=== PATIENT | female | born 1965 | race Caucasian/White ===

== ENCOUNTER 2025-01-30 23:20 | Inpatient (IN) | payer MEDICAID, SELFPAY ==
--- OUTSIDE RECORDS SUMMARY | 2024-12-01 09:22 | XMS_ITS | Encounter Summary ---
Author [place] [address] Care Team Providers Care Ledger Clerk Name Role Phone Chetna Cedeno MD Primary Care Provider [phone] Arlyn Schmidt MD Unavailable [phone] Tacho Echavarria MD Unavailable [phone] Matt Ulrich MD Unavailable [phone] Eze Brock Unavailable Cheryl Nair RN Unavailable [phone] Annette Walker NEGATIVE RETOUCHER Unavailable [phone] Batool Celis MD Unavailable [phone] Reason for Referral * Surgical (Routine) - Pending Review Specialty Diagnoses / Procedures Referred By Contact Referred To Contact Gastroenterology Diagnoses Nausea and vomiting, unspecified vomiting type Gastroesophageal reflux disease without esophagitis Procedures ESOPHAGOGASTRODUODENOSCOPY (EGD) NM ESOPHAGOGASTRODUODENOSCOPY TRANSORAL DIAGNOSTIC NM DILATION ESOPH UNGUIDED SOUND/BOUGIE 1/MULT PASS NM EGD INSERT GUIDE WIRE DILATOR PASSAGE ESOPHAGUS NM EGD BALLOON DILATION ESOPHAGUS <30 MM DIAM King Oliva MD [address] [place] [address] Phone: tel:[phone] fax:[phone] Referral ID Status Reason Start Date Expiration Date V isits Requested Visits Authorized [id number] Pending Review 09/14/2024 09/14/2025 1 1 Reason for Visit * Surgical (Routine) - Pending Review Specialty Diagnoses / Procedures Referred By Contact Referred To Contact Gastroenterology Diagnoses Nausea and vomiting, unspecified vomiting type Gastroesophageal reflux disease without esophagitis Procedures ESOPHAGOGASTRODUODENOSCOPY (EGD) NM ESOPHAGOGASTRODUODENOSCOPY TRANSORAL DIAGNOSTIC NM DILATION ESOPH UNGUIDED SOUND/BOUGIE 1/MULT PASS NM EGD INSERT GUIDE WIRE DILATOR PASSAGE ESOPHAGUS NM EGD BALLOON DILATION ESOPHAGUS <30 MM DIAM King Oliva MD [address] [place] [address] Phone: tel:[phone] fax:[phone] Referral ID Status Reason Start Date Expiration Date V isits Requested Visits Authorized [id number] Pending Review 09/14/2024 09/14/2025 1 1 Encounter Details Date Type Department Care Team (Late st Contact Info) Description 12/01/2024 9:22 AM EDT - 12/01/2024 11:59 PM EDT Hospital Encounter [facility] [address] [place] [address] King Oliva MD [address] [place] [address] Aliya Friedman MD [address] [place] [address] Shaylee Thurman CRNA [address] [place] [address] Nausea and vomiting, unspecified vomiting type; Gastroesophageal reflux disease without esophagitis Discharge Disposition: Home or Self Care Social History Tobacco Use Types Packs/Day Years Used Date Smoking Tobacco: Never Passive Smoke Exposure: Never Smokeless Tobacco: Never Alcohol Use Standard Drinks/Week Comments Never 0 (1 standard drink = 0.6 oz pur e alcohol) B1300 Health Literacy Answer Date Recor ded How often do you need to hav e someone help you when you read instructions, pamphlets, or other written material from your doctor or pharmacy? Never 11/07/2023 [facility] Utilities Answer Date Recorded In the past 12 months has th e electric, gas, oil, or water company threatened to shut off services in your home? No 07/07/2024 Social Connection and Isolation Panel [NHANES] A nswer Date Recorded In a typical week, how many times do you talk on the phone with family, friends, or neighbors? Once a week 11/07/19 How often do you get togethe r with friends or relatives? Once a week 11/07/2023 How often do you attend chur ch or caodaism services? 1 to 4 times per year 11/07/2023 Do you belong to any clubs o r organizations such as zoroastrianism groups, unions, fraternal or athletic groups, or school groups? No 11/07/2023 How often do you attend meet ings of the clubs or organizations you belong to? Never 11/07/2023 Are you , , di vorced, , never , or living with a partner? Never 11/07/2023 Overall Financial Resource Strain (CARDIA) Answe r Date Recorded How hard is it for you to pa y for the very basics like food, housing, medical care, and heating? Not very hard 07/07/2024 PHQ-2 Answer Date Recorded PHQ-2 Total Score 5 07/07/2024 [facility] - Occupational Stress Questionnaire Answer Date Recorded Do you feel stress - tense, restless, nervous, or anxious, or unable to sleep at night because your mind is troubled all the time - these days? Rather much 07/07/2024 Exercise Vital Sign Answer Date Recorde d On average, how many days pe r week do you engage in moderate to strenuous exercise (like a brisk walk)? 3 days 07/07/2024 On average, how many minutes do you engage in exercise at this level? 40 min 07/07/2024 Hunger Vital Sign Answer Date Recorded Within the past 12 months, y ou worried that your food would run out before you got the money to buy more. Never true 07/07/20 24 Within the past 12 months, t he food you bought just didn't last and you didn't have money to get more. Never true 07/07/2024 PRAPARE - Transportation Answer Date Re corded In the past 12 months, has l ack of transportation kept you from medical appointments or from getting medications? No 08/2023 In the past 12 months, has l ack of transportation kept you from meetings, work, or from getting things needed for daily living? No 11/07/2023 Housing Stability Vital Sign Answer Noah e Recorded In the last 12 months, was t here a time when you were not able to pay the mortgage or rent on time? Yes 11/07/2023 Number of Times Moved in the Last Year Not on fi le 11/07/2023 At any time in the past 12 m [facility], were you homeless or living in a [place] facility (including now)? No 11/07/2023 [facility] IP Transportation Answer D ate Recorded In the past 12 months, has l ack of reliable transportation kept you from medical appointments, meetings, work or from getting things needed for daily living? No 07/07/2024 Education Answer Date Recorded What is the highest level of school you have completed or the highest degree you have received? High school graduate 02/13/2019 Sexually Active Control Partners Comments Not Currently Comments No Sex and Gender Information Value Date Recorded Sex Assigned at Not on file Legal Sex Female 5:20 PM EDT Gender Identity Not on file Sexual Orientation Not on file Occupation Industry Job Start Date Job End Date Not on file Not on file Not on file Not on file documented as of this encounter Last Filed Vital Signs Vital Sign Reading Time Taken Comments Blood Pressure 120/91 12/01/2024 11:29 AM EDT Pulse 83 12/01/2024 11:29 AM EDT Temperature 36.7 C (98.1 F) 12/01/2024 11:29 AM EDT Respiratory Rate 16 12/01/2024 11:29 AM EDT Oxygen Saturation 98% 12/01/2024 11:29 AM EDT Inhaled Oxygen Concentration - - Weight 86.6 kg (191 lb) 12/01/2024 10:02 AM EDT Height 160 cm (5' 3 ) 12/01/2024 10:02 AM EDT Body Mass Index 33.83 12/01/2024 10:02 AM EDT documented in this encounter Functional Status * Is the person deaf or does he/she have serious difficulty hearing? Answer Date of Assessment Author No 12/06/2022 2:08 PM EDT Macarena Marion CCMA * Is the person blind or does he/she have serious difficulty seeing even when wearing glasses? Answer Date of Assessment Author No 12/06/2022 2:08 PM EDT Macarena Marion CCMA * Does this person have serious difficulty walking or climbing stairs? Answer Date of Assessment Author No 12/06/2022 2:08 PM EDT Macarena Marion CCMA * Does this person have difficulty dressing or bathing? Answer Date of Assessment Author No 12/06/2022 2:08 PM EDT Macarena Marion CCMA * Because of a physical, mental or emotional condition, does this person have difficulty doing errands alone such as visiting a doctor's office or shopping? Answer Date of Assessment Author No 12/06/2022 2:08 PM EDT Macarena Marion CCMA documented as of this encounter Mental Status * Because of a physical, mental or emotional condition, does this person have serious difficulty concentrating, remembering or making decisions? Answer Entry Date Author No 12/06/2022 2:08 PM EDT Macarena Marion CCMA documented in this encounter Discharge Instructions * Discharge Instructions* Alma Salmon RN - 12/01/2024 10:04 AM EDT [facility] Discharge Instructions - Following Endoscopy A responsible adult, 18 years or older must be in attendance until the next A.M. Rest quietly today. May resume usual diet. Do not drive or operate any machinery until the next A.M., or as instructed. No alcoholic beverages for 24 hours. Do not make any legal or important decisions for the next 24 hours. Call the physician???s office for a follow-up visit or questions/concerns. Patient discharged to the care of Adelaida bhatia. ADDITIONAL INSTRUCTIONS: Call Dr. Oliva at [phone] if the following occurs: EGD: Abdominal pains, cramps, swelling, chest pains, difficulty in swallowing, chills, coughing blood, severe sore throat, or body temp. over 101 degrees. Medications Reviewed No Changes Copy of Discharge Medication Instruction Sheet Given +++++++++++++++++++++++++++++++++++++ [facility] Discharge Instructions After Anesthesia We appreciate the opportunity to care for you today! Here are a few reminders as you head home. A responsible adult, 18 years or older, must be with you until tomorrow morning. Rest quietly today. You may resume your normal diet as tolerated or as directed by your surgeon. Do not drive or operate any heavy machinery until tomorrow morning or as instructed. Do not make any legal or important decisions for the next 24 hours. Do not drink alcoholic beverages or take sleeping pills for 24 hours unless otherwise directed. If you have any questions or concerns regarding your anesthesia experience, please call our office at . Get Well Soon! 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 56 Tablet 1 12/03/2024 3:46 PM EDT 5 albuterol (PROVENTIL HFA;VENTOLIN HFA) 90 mcg/actuation Inhl HFA Aerosol InhalerIndication s:Mild intermittent asthma, unspecified whether complicated Inhale 2 Puffs into the lungs every 6 hours as needed for Wheezing. 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 90 Tablet 3 10/08/2024 1:18 PM EDT 5 ARIPiprazole (ABILIFY) 5 mg Oral TabletIndications :Severe episode of recurrent major depressive disorder, without psychotic features (HCC),KAYODE (generalized anxiety disorder) Take 1 Tablet by mouth daily. 30 Tablet 1 5 BOTOX 200 unit Inj Recon Soln 4 dicyclomine (BENTYL) 10 mg Oral CapsuleIndication s:Abdominal cramps Take 1 Capsule by mouth 3 times daily. for abdominal cramps 30 Capsule 4 exemestane (AROMASIN) 25 mg Oral Tablet Take 25 mg by mouth daily. 5 fluticasone furoate-vilantero L (BREO ELLIPTA) 200-25 mcg/dose Inhl Disk with DeviceIndications :Mild intermittent asthma, unspecified whether complicated Inhale 1 Puff into the lungs daily. 1 Each 6 4 fluticasone propionate (FLONASE) 50 mcg/actuation Nasl [place], Suspension 1 [place] by Nasal route daily. 1 Each 11 4 Inhalational Spacing Device (AEROCHAMBER MV) Misc Spacer 1 Each by Misc.(Non-Drug; Combo Route) route as needed. 1 Device 0 LORazepam (ATIVAN) 0.5 mg Oral TabletIndications :Anxiety about treatment Take 1 Tablet by mouth 2 times daily as needed for Anxiety (or Insomnia). 30 Tablet 4 MAGIC MOUTHWASH (LIDO/DIPHEN/NYST AT) ORAL COMPOUNDIndicatio ns:Mucositis Swish and Swallow 15 mL by mouth every 3 to 4 hours as needed for Other. This is a compounded RX (Nystatin Susp 200ml, Diphenhydramine 170ml, Lidocaine 2% 50ml, Maldonado syrup 30ml) 450 mL 1 12/09/2023 6:05 PM EDT 4 Meclizine (ANTIVERT) 50 mg Oral TabletIndications :Nausea,Vertigo Take 50 mg by mouth 2 times daily. for vertigo x 3 days 6 Tablet 4 mometasone (ELOCON) 0.1 % Top CreamIndications: Invasive ductal carcinoma of breast, female, right (HCC) Apply topically daily. 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 30 Capsule 2 5 ondansetron (ZOFRAN-ODT) 8 mg Oral Tablet, Rapid DissolveIndicatio ns:Chemotherapy-i nduced nausea Take 1 Tablet by mouth every 8 hours as needed for Nausea. 60 Tablet 1 5 promethazine-dext romethorphan (PROMETHAZINE-DM) 6.25-15 mg/5 mL Oral SyrupIndications: Acute bacterial sinusitis Take 5 mL by mouth 3 times daily as needed. No driving 100 mL 5 tiZANidine (ZANAFLEX) 4 mg Oral TabletIndications :Chronic migraine without aura, intractable, with status migrainosus Take 1 tab nightly for cervicogenic headache and 1/2 tab daily prn for breakthrough pain. DO NOT TAKE AND DRIVE 45 Tablet 5 3 UNABLE TO FIND Fentanyl 500 mcg/ml in pain pump. 60 mcg/day lidocaine-priloca ine (EMLA) Top CreamIndications: Invasive ductal carcinoma of breast, female, right (HCC) Apply dime size amount to port area 30 minutes prior to port access. 30 g 1 5 01/19/20 25 documented as of this encounter Discharge Disposition Disposition Code Departure Means Destination Home or Self Care documented in this encounter H&P Notes * King Oliva MD - 12/01/2024 10:30 AM EDT Subjective: A 59-year-old female with past medical history of breast cancer stage IIIb, s/p surgery and chemotherapy, currently on radiation therapy presents with complaints of nausea, intermittent vomiting and GERD symptoms. She describes waterbrash and upper abdominal discomfort without change in bowel habits. She also reports solid food dysphagia. Her PPI was increased to twice daily about 2 months ago without much improvement in her symptoms. Review of Systems: Denies chest pain, SOB Denies dysuria, hematuria All other systems reviewed and are negative unless otherwise mentioned above Medications Current Medications Current Outpatient Medications Medication Sig Dispense Refill albuterol (PROVENTIL HFA;VENTOLIN HFA) 90 mcg/actuation Inhl HFA Aerosol Inhaler Inhale 2 Puffs into the lungs every 6 hours as needed for Wheezing. 1 Each 11 BOTOX 200 unit Inj Recon Soln dicyclomine (BENTYL) 10 mg Oral Capsule Take 1 Capsule by mouth 3 times daily. for abdominal [id number] Capsule 0 ergocalciferol (VITAMIN D) 1,250 mcg (50,000 unit) Oral Capsule Take 1 Capsule by mouth once a week. 12 Capsule 3 fluticasone furoate-vilanteroL (BREO ELLIPTA) 200-25 mcg/dose Inhl Disk with Device Inhale 1 Puff into the lungs daily. 1 Each 6 fluticasone propionate (FLONASE) 50 mcg/actuation Nasl [place], Suspension 1 [place] by Nasal route daily. 1 Each 11 Inhalational Spacing Device (AEROCHAMBER MV) Misc Spacer 1 Each by Misc.(Non- Drug; Combo Route) route as needed. 1 Device 0 lidocaine-prilocaine (EMLA) Top Cream Apply dime size amount to port area 30 minutes prior to port access. 30 g 1 LORazepam (ATIVAN) 0.5 mg Oral Tablet Take 1 Tablet by mouth 2 times daily as needed for Anxiety (or Insomnia). 30 Tablet 0 losartan (COZAAR) 50 mg Oral Tablet Take 1 Tablet by mouth daily. 90 Tablet 1 MAGIC MOUTHWASH (LIDO/DIPHEN/NYSTAT) ORAL COMPOUND Swish and Swallow 15 mL by mouth every 3 to 4 hours as needed for Other. This is a compounded RX (Nystatin Susp 200ml, Diphenhydramine 170ml, Lidocaine 2% 50ml, Maldonado syrup 30ml) 450 mL 1 Meclizine (ANTIVERT) 50 mg Oral Tablet Take 50 mg by mouth 2 times daily. for vertigo x 3 days 6 Tablet 0 mometasone (ELOCON) 0.1 % Top Cream Apply topically daily. 45 g 1 omeprazole (PRILOSEC) 40 mg Oral Capsule, Delayed Release(E.C.) Take 1 Capsule by mouth daily. 30 Capsule 2 ondansetron (ZOFRAN-ODT) 8 mg Oral Tablet, Rapid Dissolve Take 1 Tablet by mouth every 8 hours as needed for Nausea. 60 Tablet 1 rimegepant (NURTEC ODT) 75 mg Oral Tablet, Rapid Dissolve Dissolve 1 tablet in mouth every other day (Max dose: 75 mg/24 hours) 16 Tablet 5 rOPINIRole (REQUIP) 0.25 mg Oral Tablet Take 1 Tablet by mouth nightly as needed. for up to 30 days. 30 Tablet 5 rOPINIRole (REQUIP) 0.25 mg Oral Tablet Take 1 Tablet by mouth nightly as needed. for up to 30 days. 30 Tablet 5 tiZANidine (ZANAFLEX) 4 mg Oral Tablet Take 1 tab nightly for cervicogenic headache and 1/2 tab daily prn for breakthrough pain. DO NOT TAKE AND DRIVE 45 Tablet 5 UNABLE TO FIND Fentanyl 500 mcg/ml in pain pump. 60 mcg/day No current facility-administered medications for this visit. Physical Examination BP 108/70 (BP Location: Left arm, Patient Position: Sitting) Pulse 80 Ht 5' 3 (1.6 m) Wt 198lb (89.8 kg) LMP 11/08/2015 (Approximate) BMI 35.07 kg/m?? General: alert, well developed, well nourished, in no acute distress HEENT: Not pale, anicteric, mucous membranes moist Lungs: clear to auscultation bilaterally Cardiac: RRR. S1 S2 normal. Abdomen: soft, nontender, BS +, no masses or ascites Ext: No cyanosis, clubbing. No pitting pedal edema Neurological: AAO x 3. No asterixis Laboratory: Results Lab Results Component Value Date WBC 7.9 08/17/2024 HGB 11.3 08/17/2024 HCT 35.4 08/17/2024 MCV 86.8 08/17/2024 PLT 259 08/17/2024 Results Lab Results Component Value Date ALT 12 08/17/2024 AST 16 08/17/2024 ALKPHOS 117 08/17/2024 BILIDIR <0.2 11/06/2022 PROT 6.5 08/17/2024 INR 0.99 11/29/2023 LIPASE 36 01/12/2024 Results Lab Results Component Value Date CREATININE 0.64 08/17/2024 BUN 9 08/17/2024 NA 138 08/17/2024 K 3.8 08/17/2024 CL 106 08/17/2024 CO2 22 08/17/2024 Results Lab Results Component Value Date INR 0.99 11/29/2023 INR 1.02 08/08/2018 No images are attached to the encounter. Assessment Meri Cole is a(n) 59 y.o. female with nausea, vomiting and GERD Meri was seen today for gastroesophageal reflux, emesis, nausea and weight loss. Diagnoses and all orders for this visit: Nausea and vomiting, unspecified vomiting type Continue antiemetics as needed Recommend upper endoscopy for further evaluation - AMB EGD W ANESTH COMM ORDER Gastroesophageal reflux disease without esophagitis Symptoms have been refractory to once a day PPI Continue PPI therapy twice daily Recommend upper endoscopy for further workup Avoid caffeine drinks, alcohol, chocolate, peppermint, and fatty foods. These foods can make acid reflux worse. Avoid eating <2-3 hrs before going to bed, eating large meals, or lying down after eating Raise the head of your bed by 6 to 8 inches (for example, by putting wood blocks under 2 legs of the bed) at night - AMB EGD W ANESTH COMM ORDER Procedure: EGD ASA: II Mallampati: II Allergies: Allergies Allergen Reactions Dilaudid [Hydromorphone] Rash itching Hydrocodone Hives hives and face swelling Morphine Shortness Of Breath Tegaderm Ag Mesh [Silver] Itching and Rash Tegaderm dressing Adhesive Rash Amoxicillin Hives Ancef [Cefazolin] Hives and Nausea And Vomiting Lactose Intolerance (Lactase) Diarrhea Methocarbamol Swelling Shingrix (Pf) [Varicella-Zoster Ge-As01b (Pf)] Other (See Comments) Itchy rash Sumatriptan Swelling Tongue swelled, jaw locked up, dizziness Tree Nuts Shortness Of Breath and Swelling Pre-Procedure Assessment: Risks, benefits, potential complications and alternatives discussed with the patients legally authorized customer response representative. The patient's pre-procedure physical assessment indicates that the patient is suitable candidate for and agrees to the planned sedation and procedure. NPO as ordered for procedure: Yes Cardiovascular and Vital signs Stable: yes Comment: Adequate/Patient Oral Airway yes Comment: H&P Update History and Physical within 30 days and on chart? yes I have reviewed the H&P and examined the patient. Changes? no List: Additional Findings: none This update is in reference to H&P performed by ms Physician Signature: King C Anusionwu, MD Date:12/01/2024 Time:9:30 AM documented in this encounter Plan of Treatment Upcoming Encounters Date Type Department Care Team (Late st Contact Info) Description 02/02/2025 11:20 AM EDT Telemedicine [facility] [address] [place] [address] Samm Ledesma APRN [address] [facility] [address] [place] [address] 02/04/2025 11:00 AM EDT Appointment [facility] [place] [address] Tacho Echavarria MD [address] [place] [address] Naya García PA-C [address] [place] [address] [address] [place] [address] 02/04/2025 2:00 PM EDT Appointment [facility] [place], [place] [id number] Tacho Echavarria MD [address] [place] [id number] 02/04/2025 2:20 PM EDT [facility]ointment [facility] [place] [address] Tacho Echavarria MD [address] [place] [id number] 02/10/2025 10:30 AM EDT Office Visit [facility] [place] [address] [facility] [address] [place] [address] Sin Tran MD [address] [place] [address] 03/02/2025 11:40 AM EDT Office Visit [facility] [address] [place] [address] [place] [address] [place] [phone] 03/02/2025 12:45 PM EDT Procedure visit [facility] [address] [place], [place] [id number] Samm Ledesma, WEB SERVICES PROFESSIONAL [address] [place], [place] [id number] 04/29/2025 9:15 AM EDT Appointment [place] [address] Batool Celis MD [address] [place] [address] [facility] [place], [place] [id number] documented as of this encounter Goals Goal Patient Goal Type Associated Problems Recent Progress Patient-Stated? Author Blood Pressure < 140/90 Blood Pressure 129/95(01/15 2:00 PM EDT) No Chetna Cedeno MD Breast Health Breast Health On track(2024 12:01 PM EST) No Jasmin Porter RN Note: Patient acknowledges understanding of new diagnosis, plan of care, available resources and how to contact Nurse Navigator with any future questions or concerns. Breast Health Breast Health No Jasmin Porter RN Note: Patient will be compliant with monthly SBE and is aware of who to contact for any unusual or concerning findings. Maintain a healthy diet, exercise regularly and maintain an ideal body weight General Sanam Champion MA documented as of this encounter Procedures Procedure Name Priority Date/Time Associated Diagnosis Comments ESOPHAGOGASTRODUODENOSCOPY (EGD) Routine 12/01/2024 11:06 AM EDT Nausea and vomiting, unspecified vomiting type Gastroesophageal reflux disease without esophagitis PATHOLOGY TISSUE REQUEST Routine 025 10:59 AM EDT Nausea and vomiting, unspecified vomiting type Gastroesophageal reflux disease without esophagitis documented in this encounter Results * ESOPHAGOGASTRODUODENOSCOPY (EGD) (12/01/2024 11:06 AM EDT) Anatomical Region Laterality Modality Endoscopy Narrative 12/01/2024 11:08 AM EDT Table formatting from the original result was not included. Findings The esophagus appeared normal. Irregular Z-line; performed cold forceps biopsy. Biopsies taken to rule out Ahmadi esophagus Healthy previous sleeve gastrectomy in the stomach; no bleeding was observed Performed multiple random forceps biopsies in the body of the stomach and antrum using standard forceps to rule out H. pylori The duodenum appeared normal. Performed random biopsy using biopsy forceps to rule out celiac disease. Recommendation Await pathology results Continue current acid suppression medication 30 minutes before a meal. Follow up with me in clinic Pre-Procedure Diagnosis / Indication Gastroesophageal reflux disease without esophagitis Nausea and vomiting, unspecified vomiting type Post-Procedure Diagnosis Irregular Z line, r/o Ahmadi esophagus Evidence of prior sleeve gastrectomy Staff Staff Role King Oliva MD Performing Provider Shaylee curtis, FLIGHT MECHANIC FLIGHT MECHANIC Viv Martinez RN Chief Of Hospital Medicine Madelyn Sidhu RN Endoscopy Nurse Aliya Friedman MD Anesthesiologist Medications See Anesthesia Record. Preprocedure A history and physical has been performed, and patient medication allergies have been reviewed. The patient's tolerance of previous anesthesia has been reviewed. The risks and benefits of the procedure and the sedation options and risks were discussed with the patient. All questions were answered and informed consent obtained. ASA 3 - Patient with severe systemic disease Details of the Procedure The patient underwent monitored anesthesia care, which was administered by an anesthesia professional. The patient's blood pressure, heart rate, level of consciousness, oxygen, respirations, ECG and ETCO2 were monitored throughout the procedure. The scope was introduced through the mouth and advanced to the second part of the duodenum. Retroflexion was performed in the cardia. The patient's estimated blood loss was minimal (<5 mL). The procedure was not difficult. The patient tolerated the procedure well. There were no apparent adverse events. Patient provided education and educated on specific discharge instructions. Patient educated on medications given during the procedure and new medications for discharge. Patient verbalizes understanding of discharge education. Patient stable and awaiting transport for discharge. Events Procedure Events Event Event Time ENDO SCOPE IN TIME 12/01/2024 10:56 AM ENDO SCOPE OUT TIME 12/01/2024 11:04 AM Specimens ID Type Source Tests Collected by Time 1 : duodenal biopsies via forceps Tissue Small Intestine, Duodenum PATHOLOGY TISSUE REQUEST King Oliva MD 12/01/2024 1059 2 : gastric biopsies via forceps Tissue Gastric PATHOLOGY TISSUE REQUEST King Oliva MD 12/01/2024 1101 3 : gastroesophageal junction biopsies via forceps Tissue Gastroesophageal Junction PATHOLOGY TISSUE REQUEST King Oliva MD 12/01/2024 1102 Anesthesia Event Time In Patient In - Proc. Room 10:44 AM King Oliva MD ENDOSCOPY PROCEDURE ORDERAB LES Final Result * PATHOLOGY TISSUE REQUEST (12/01/2024 10:59 AM EDT) CASE REPORT Surgical Pathology Case: [id number] Authorizing Provider: King Oliva MD Collected: 12/01/2024 1059 Ordering Location: [facility] ENDOSCOPY Received: 12/01/2024 1237 Pathologist: Estefany Spencer MD Specimens: A) - Small Intestine, Duodenum, duodenal biopsies via forceps B) - Gastric, gastric biopsies via forceps C) - Gastroesophageal Junction, gastroesophageal junction biopsies via forceps 12/03/2024 10:48 AM EDT [facility] FINAL DIAGNOSIS A. Duodenal biopsies via forceps: Small bowel mucosa with no significant diagnostic abnormalities. Negative for celiac disease. B. Gastric, biopsies via forceps: Mild chronic inactive gastritis. Helicobacter microorganisms are not identified. C. Gastroesophageal junction, biopsies via forceps: Predominantly inflamed gastric cardia type mucosa with reactive changes. Scant esophageal squamous epithelium. Negative for intestinal metaplasia and dysplasia. 12/03/2024 10:48 AM EDT [facility] at 1048 EDT GROSS DESCRIPTION A. Received in formalin, in a container labeled with the patient's name, hospital number, and duodenal biopsies via forceps , are seven sahu soft tissue fragments, 0.2-0.5 cm in greatest dimension. The fragments are entirely submitted in A1. Saima George MS, PA (ASCP) 12/01/2024 B. Received in formalin, in a container labeled with the patient's name, hospital number, and gastric biopsies via forceps , are six sahu soft tissue fragments, 0.3-1.1 cm in greatest dimension. The fragments are entirely submitted in B1. Saima George MS, PA (ASCP) 12/01/2024 C. Received in formalin, in a container labeled with the patient's name, hospital number, and gastroesophageal junction biopsies via forceps , are two sahu soft tissue fragments, both 0.4 cm in greatest dimension. The fragments are entirely submitted in C1. Saima George MS, PA (ASCP) 12/01/2024 12/03/2024 10:48 AM EDT [facility] MICROSCOPIC DESCRIPTION The microscopic examination may have been rendered in whole, or in part, by analyzing high-resolution digital images (whole slide images) on the [employer] Digital Pathology platform validated at [facility]. 12/03/2024 10:48 AM EDT [facility] EMBEDDED IMAGES 12/03/2024 10:48 AM EDT [facility] Tissue DUODENAL STRUCTURE / Unknown 12/01/2024 10:59 AM EDT 12/01/2024 12:37 PM EDT Tissue specimen (specimen) STOMACH STRUCTURE / Unknown 12/01/2024 11:01 AM EDT 12/01/2024 12:37 PM EDT Tissue specimen (specimen) CARDIOESOPHAGEAL JUNCTION STRUCTURE / Unknown 12/01/2024 11:02 AM EDT 12/01/2024 12:37 PM EDT us King C Anusionwu MD PATHOLOGY ORDERABLES Final Result [facility] [address] [place], [place] [id number] [facility] [address] [place] [address] documented in this encounter Visit Diagnoses Diagnosis Nausea and vomiting, unspecified vomiting type Gastroesophageal reflux disease without esophagitis Esophageal reflux documented in this encounter Orders Medications Ordered That Obed ht Not Have Been Administered Count Last Ordered Date First Ordered Date acetaminophen (TYLENOL) tablet 1,000 mg 1 0 12/01/2024 fentaNYL (SUBLIMAZE) injection 25 mcg 1 meperidine (DEMEROL) injecti on (PF) 12.5 mg 1 12/01/2024 ondansetron (ZOFRAN) injection 4 mg 1 12/01 ondansetron (ZOFRAN-ODT) dis integrating tablet 8 mg 1 12/01/2024 lactated ringers infusion 1 11/30/2024 Discharge Count Last Ordered Date First Orde red Date DISCHARGE PATIENT 1 12/01/2024 documented in this encounter Additional Health Concerns Assessment Noted Time PHQ-9 Depression Total Score: 17 024 8:39 AM EST PHQ-2 Depression Total Score: 5 07/07/20 24 8:39 AM EST documented as of this encounter Care Teams Ledger Clerk Relationship Specialty [place] [address] [place] [id number] PCP - General 06/21/10 Arlyn Schmidt MD [address] [place], [place] [id number] Consulting Physician Internal Medicine-Endocrinology , Diabetes & Metabolism 11/28/20 Tacho Echavarria MD 1 [place], [place] [id number] Internal Medicine-Medical Oncology 11/12/23 Matt Ulrich MD 1 [facility] [place] [address] Surgery-Surgical Oncology 12/04/23 Eze Brock Pastoral Care 12/13/23 Cheryl Nair, RN Oncology Nurse Navigator 03/25/2412/13 Annette Walker, ARACELI Dice Table Person 05/13/24 Batool Celis MD 1 [facility] [place] [address] Radiation Oncologist Radiology-Radiation Oncology 06/08/24 documented as of this encounter
--- OUTSIDE RECORDS SUMMARY | 2024-12-02 09:36 | XMS_ITS | Encounter Summary ---
Author Organization [place] [address] Care Team Providers Care Real Estate Underwriter Name Role Phone Chetna Cedeno MD Primary Care Provider [phone] Arlyn Schmidt MD Unavailable [phone] Tacho Echavarria MD Unavailable [phone] Matt Ulrich MD Unavailable [phone] Eze Brock Unavailable Cheryl Nair RN Unavailable [phone] Annette Walker SYNTHETIC GEM PRESS OPERATOR Unavailable [phone] Batool Celis MD Unavailable [phone] Reason for Visit * Physical Therapy (Emergency) - Closed Specialty Diagnoses / Procedures Referred By Contac t Referred To Contact Physical Therapy Diagnoses 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) Chemotherapy follow-up examination Malignant neoplasm of right female breast, unspecified estrogen receptor status, unspecified site of breast (HCC) Port-A-Cath in place Tacho Echavarria MD [address] [place] [address] Phone: tel: fax: Shaunna Workman PT Referral ID Status Reason Start Date Expiration Date V isits Requested Visits Authorized [id number] Closed Specialty Services Required 10/08/2024 01/28/202507 31 Encounter Details Date Type Department Care Team (Latest Contact Info) Description 12/02/2024 9:36 AM EDT - 12/02/2024 11:59 PM EDT Hospital Encounter [facility] Physical Therapy [address] [place] [address] Shaunna Workman PT Discharge Disposition: Home or Self Care Social [...] from your doctor or pharmacy? Never 11/07/2023 [facility] Utilities Answer Date Recorded In the past [...] often do you attend chur ch or jew services? 1 to 4 times per year 11/07/2023 Do you belong to any clubs o r organizations such as baptism groups, unions, fraternal or athletic groups, or [...] Date Recorded PHQ-2 Total Score 5 07/07/2024 [facility] of Occupat ional Health - Occupational Stress [...] any time in the past 12 [facility], were you homeless or living in a halfway (including now)? No 11/07/2023 [facility] IP Transportation Answer D ate [...] on file documented as of this encounter Functional Status * Is the person deaf or does he/she have serious difficulty hearing? Answer Date of Assessment Author No 12/06/2022 2:08 PM Macarena Henson CCMA * Is the person blind or does he/she have serious difficulty seeing even when wearing glasses? Answer Date of Assessment Author No 12/06/2022 2:08 PM EDMacarena Brunner CCMA * Does this person have serious difficulty walking or climbing stairs? Answer Date of Assessment Author No 12/06/2022 2:08 PM EDT Macarena Marion CCMA * Does this person have difficulty dressing or bathing? Answer Date of Assessment Author No 12/06/2022 2:08 PM Macarena Henson CCMA * Because of a physical, mental or emotional condition, does this person have difficulty doing errands alone such as visiting a doctor's office or shopping? Answer Date of Assessment Author No 12/06/2022 2:08 PM Macarena Henson CCMA documented as of this encounter Mental Status * Because of a physical, mental or emotional condition, does this person have serious difficulty concentrating, remembering or making decisions? Answer Entry Date Author No 12/06/2022 2:08 PM Macarena Henson CCMA documented in this encounter Medications at Time [...] 4 fluticasone propionate (FLONASE) 50 mcg/actuation Nasl [place], Suspension 1 [place] by Nasal route daily. 1 Each 11 [...] or Self Care documented in this encounter Progress Notes * Shaunna Workman, PT - 12/02/2024 9:45 AM EDT Images from the original note were not included. Physical Therapy Treatment Note Patient Name: El Cole : 1965 Visit #: [id number] Onset Date: 10/08/24 Diagnosis: 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) Chemotherapy follow-up examination Malignant neoplasm of right female breast, unspecified estrogen receptor status, unspecified site of breast (HCC) Port-A-Cath in place Restrictions/Precautions: has Katherine anali jules that she is attending 01/02/25 and would like to be able to walk with no AD by then, [place] MS (but pt states that she was told this may have been a misdiagnosis), currently taking chemo pill, R mastectomy Jun 2024, radiation ended 09/25/24, chronic back issues with sciatica Physician: Jericho ESCOBAR Follow Up: 11/11/24 Evaluation Date: 10/30/24 Reassessment Due: 12/26/24 Primary Insurance: MEDICAID /[facility] [place] [id number] MDR Secondary Insurance: n/a Insurance Authorization: AMB REFERRAL TO PHYSICAL THERAPY Authorized (10/08/2024-01/28/2025) Visits Requested Visits Authorized Visits Completed Visits Scheduled 07 31 6 9 Details Referral ID: [id number] Authorization Status Reason: Received Carrier Authorization Authorization Comments: -- Referred To: Shaunna Workman PT at [facility] PT Referred By: Tahco Echavarria MD at [facility] MED ONC, [facility] SHAUNNA [place] Creation Date: 10/08/2024 Referral Reasons: Specialty Services Required Referral Order: AMB REFERRAL TO PHYSICAL THERAPY Time In/Out: 947/1028 Timed Treatment Minutes: Gait training 14 minutes Neuro re-education 12 minutes Therapeutic Exercise 15 minutes Total Timed Code Treatment Minutes: 41 Untimed Treatment Minutes: None Total Treatment Minutes: 41 Medication Changes: denies Pain: 5 Location: L thigh. R shoulder/chest Description: Pain is described as aching Subjective had an endoscopy yesterday and states that she is a little more sore d/t that Objective: pt seated in waiting area when PT arrived for therapy session. pt ambulate in with 4WW and increased trunk flex as well as increased distance btw 4WW and body Treatment Check if done Treatment Description/Reps Ther Ex [x] nustep x6 minutes at seat 8, arms 8 and level 5. performed to improve endurance and strength aswell as to improve B UE/LE reciprocal mov't pattern. [] STS x5 completed in 15.41 seconds ind [] NK table ext with 2.5# 2x10B. min verbal cues for proper technique and form. flex with 2.5# 2x10B. min verbal cues for proper technique and form. [x] education Needs Assistance: No Understood: Yes signaling design engineer // bars with B UE support [] high marches x10B [] hamstring curls x10B [] alternating toe taps to orange cones x10B [] alternating diagonal toe taps to orange cones x10B [] tilt board L/R/ant/post x15B in each direction [] forward lunge onto bosu x10B [x] heel raise into squat x10B [x] shoulder circles x20B Cw/CCw [x] shoulder retraction x15B [] Gait [] TUG Timed Up-and-Go Test First trial (seconds) 15 Second trial (seconds) 15.2 Third trial (seconds) 15.6 Average time (seconds) 15.3 Time > 11.1 seconds is correlated with falls in persons with vestibular deficits. > 14 seconds indicates risk for falls in elderly. > 20 seconds indicates impaired functional mobility. > 30 seconds indicates dependency in most ADL and mobility skills. Tested without UE support. [] 6MWT pt amb 612' with 4WW. pt presents with slow elisha, increased trunk flexion. [] amb with no AD attempted however pt took 1 step and d/t unsteadiness requiring pt to reach out for support. mod A given [] amb with L SBQC 38' with CGA/min A. pt demo increased R step length and increased placement of cane when advancing forward. able to correct with min cues. decreased B hip stability noted as distance progressed and required seated rest break d/t this. [] education pt again stating that she is excited to use the 4WW over uneven surfaces. PT again explained that 4WW are more for endurance deficits and not the best option for balance deficits/uneven surfaces. expalined that RW is better for balance deficits. pt verbalized understanding of this again. signaling design engineer // bars with unilat UE support [x] forward walking working on upright posture, proper step length/KEITH and heel to toe as well as proper arm swing with reciprocal step pattern. improved foot placement and no scissoring noted. difficulty with maintaining arm swing [] retrograde gait working on upright posture, proper KEITH and hip extension strength [] side steps working on upright posture, core/hip stability/stabilization and B hip abd/add strength [] grape vine [x] forward/side/backward steps L<->R working on upright posture, core stability and changingdirections [x] forward step with heel raise after each step with B UE support: working on upright posture, core stability and gastroc soleus strength [x] arm swing with no UE support: to improve arm swing during gait [] NMR education signaling design engineer // bars with no support with gait belt donned [x] sidesteps on airex L<->R with CGA. initially demo increased FOF however no significant LOB noted after this [x] tandem gait on airex with CGA/SBA. slight L/R sway but no significant LOB noted [] retrograde tandem gait on airex [] side lunges on airex [] tandem gait while tapping foot with each step on airex [] sidesteps along with performing post foot tap with leading foot in between each step on airex L<->R [] sidesteps along with performing ant foot tap with leading foot in between each step on airex L<->R [x] forward and backward tap off/on to airex x5B. CGA. slight unsteadiness but no significant LOB [] tandem stance on airex [] stand on airex and tap L/R to floor with opposite foot HEP: Access Code: [email or web address] URL: [email or web address] Date: 11/11/2024 Prepared by: Romana Bowman Exercises - Supine Bridge - 2 x daily - 10-15 reps - Hooklying Clamshell with Resistance - 2 x daily - 10-15 reps - Standing Partial Squat - 2 x daily - 10-15 reps - Standing March with Counter Support - 2 x daily - 10-15 reps - Standing Hip Abduction with Counter Support - 2 x daily - 10-15 reps - Standing Hip Extension with Counter Support - 2 x daily - 10-15 reps - Heel Raises with Counter Support - 2 x daily - 10-15 reps Assessment session focused improving balance, endurance and strength. pt required no seated rest breaks throughout and progressing with balance activities as well. Goals STG set for 6 weeks Update Update Update Update Goal status 1. Patient will be Independent with HEP to improve shelter health and reduce risk for injury. indbut not compliant progressing 2. FOTO Score will increase from 34 to 39 indicating overall functional improvement. 34 progressing 3. Patient???s PSFS score on walking task will improve from 7 to 8, noting an improvement in function 9 met LTG set for 12 weeks Update Update Update Update Goal status 1. FOTO Score will increase from 34 to 44 indicating overall functional improvement. 34 progressing 2. Patient???s PSFS score on walking task will improve from 7 to 9, noting an improvement in function met met 3. 6 minute walk test score will increase from 727 feet with RW to 2210-0218 feet with LRAD to improve gait elisha and safety with community ambulation 612' with 4WW progressing 4. TUG will improve from 19.07 seconds with RW to be less than or equal to 11.1 seconds with LRAD to indicate a decreased fall risk 15.3 seconds with 4WW progressing 5. 5X STS to improve from 22.33 seconds ind to less than 15 seconds ind to demonstrate improve independence, speed, and balance with sit to stand 15.41 seconds ind progressing 6. Patient to improve R hip ext/abd/add strength from 3+/5 to 4+/5 to improve static/dynamic balance when standing/ambulating ext 4-/5 abd 4-/5 add 3+/5 progressing 7. Patient to improve L hip abd/add and knee flex/ext strength from 3+/5 to 4+/5 to improve static/dynamic balance when standing/ambulating L hip abd 4-/5 L hip add 3+/5 L knee flex 3+/5 L knee ext 3+/5 progressing 8. Patient to report no falls x30 days to demo improvement with balance and safety with functional mobility outside of therapy clinic denies falls progressing Plan [x]Continue per plan of care [] Alter current plan (see comments) [] Plan of care initiated [] Hold pending MD visit [] Discharge Comments: Electronically signed by: Signed: Shaunna Workman PT Date: 12/02/2024 documented in this encounter Plan of Treatment Upcoming Encounters Date Type Department Care Team (Late st Contact Info) Description 02/02/2025 11:20 AM EDT Telemedicine [facility] [address] [facility] [facility] [address] [place] [address] Samm Ledesma, BAKER PAINT [address] [place] [address] 02/04/2025 11:00 AM EDT Appointment [facility] Women's Wellness [place] [address] Tacho Echavarria MD [address] [place] [address] Naya García PA-C [address] [facility] [address] [place] [address] 02/04/2025 2:00 PM EDT Appointment [facility] [place] [address] Tacho Echavarria MD [address] [place] [address] 02/04/2025 2:20 PM EDT [facility]ointment [facility] [place] [address] Tacho Echavarria MD [address] [place] [address] 02/10/2025 10:30 AM EDT Office Visit [address] [place] [address] Sin Tran MD [address] [place] [address] 03/02/2025 11:40 AM EDT Office Visit ROMULO Mahmood [address] [place] [address] [place] [address] [place] [address] 03/02/2025 12:45 PM EDT Procedure visit [facility] [address] [place], [place] [id number] Samm Ledesma APRN [address] [place] [address] 04/29/2025 9:15 AM EDT Appointment [facility] [place] [address] Batool Celis MD [address] [place] [address] [place] [address] documented as of this encounter Goals Goal Patient Goal Type Associated Problems Recent Progress Patient-Stated? Author Blood Pressure < 140/90 Blood Pressure 129/95(01/15 2:00 PM EDT) No Chetna Cedeno MD Breast Health Breast Health On track(2024 12:01 PM EST) No Jasmin Porter, RAUL Note: Patient acknowledges understanding of new diagnosis, plan of care, available resources and how to contact Nurse Navigator with any future questions or concerns. Breast Health Breast Health No Jasmin Porter, RAUL Note: Patient will be compliant with monthly SBE and is aware of who to contact for any unusual or concerning findings. Maintain a healthy diet, exercise regularly and maintain an ideal body weight General No Sanam Julio MA documented as of this encounter Visit Diagnoses Not on filedocumented in this encounter Additional Health Concerns Assessment Noted Time PHQ-9 Depression Total Score: 17 024 8:39 AM EST PHQ-2 Depression Total Score: 5 07/07/20 24 8:39 AM EST documented as of this encounter Care Teams Real Estate Underwriter Relationship Specialty [place] [address] [place] [address] PCP - General 06/21/10 Arlyn Schmidt MD [address] [place] [address] Consulting Physician Internal Medicine-Endocrinology , Diabetes & Metabolism 11/28/20 Tacho Echavarria MD [address] [place] [address] Internal Medicine-Medical Oncology 11/12/23 Matt Ulrich MD [address] [place] [address] Surgery-Surgical Oncology 12/04/23 Eze Brock Pastoral Care 12/13/23 Cheryl Nair, RN Oncology Nurse Navigator 03/25/2412/13 Annette Walker, SYNTHETIC GEM PRESS OPERATOR Montessori Toddler Teacher 05/13/24 Batool Celis MD 1 [facility] [place] [address] Radiation Oncologist Radiology-Radiation Oncology 06/08/24 documented as of this encounter
--- OUTSIDE RECORDS SUMMARY | 2024-12-03 08:00 | XMS_ITS | Encounter Summary ---
Author Organization [place] [address] Care Team Providers Care Parts Runner Name Role Phone Chetna Cedeno MD Primary Care Provider [phone] Arlyn Schmidt MD Unavailable [phone] Tacho Echavarria MD Unavailable [phone] Matt Ulrich MD Unavailable [phone] Eze Brock Unavailable Cheryl Nair RN Unavailable [phone] Annette Walker APPLIQUE CUTTER Unavailable [phone] Batool Celis MD Unavailable [phone] Reason for Visit * Physical Therapy (Routine) - Closed Specialty Diagnoses / Procedures Referred By Contac t Referred To Contact Physical Therapy Diagnoses Invasive ductal carcinoma of breast, female, right (HCC) Acquired lymphedema Matt Ulrich MD [address] [place] [address] Phone: tel: fax: Kylah Lawler PT Referral ID Status Reason Start Date Expiration Date V isits Requested Visits Authorized [id number] Closed Specialty Services Required 09/04/2024 01/18/2025 1 20 Encounter Details Date Type Department Care Team (Latest Contact Info) Description 12/03/2024 8:00 AM EDT - 12/03/2024 8:59 AM EDT Hospital Encounter [facility] Physical Therapy [place] [address] [facility] [address] [place] [address] Romana Bowman PTA Discharge Disposition: Home or Self Care Social [...] from your doctor or pharmacy? Never 11/07/2023 [facility] Utilities Answer Date Recorded In the past 12 months has e electric, gas, oil, or water company [...] often do you attend chur ch or catholic services? 1 to 4 times per year 11/07/2023 Do you belong to any clubs o r organizations such as muslim groups, unions, fraternal or athletic groups, or [...] Date Recorded PHQ-2 Total Score 5 07/07/2024 [facility] [place] of Occupat ional Health - Occupational Stress [...] any time in the past 12 m [facility], were you homeless or living in a halfway (including now)? No 11/07/2023 [facility] IP Transportation Answer D ate Recorded In [...] Assessment Author No 12/06/2022 2:08 PM EDT Har[place]on, Macarena Nelli, CCMA * Is the person blind or does he/she have serious difficulty seeing even when wearing glasses? Answer Date of Assessment Author No 12/06/2022 2:08 PM OBEDT Macarena Marion CCMA * Does this person [...] 4 fluticasone propionate (FLONASE) 50 mcg/actuation Nasl [place], Suspension 1 [place] by Nasal route daily. 1 Each 11 [...] documented in this encounter Progress Notes * Romana Bowman, AUTOMATED CUTTING MACHINE OPERATOR - 12/03/2024 8:00 AM EDT Images from the original note were not included. Physical Therapy Lymphedema Progress Note 12/03/2024 NAME: El Cole : 1965 Visit # / Insurance: ([facility], 20 VISITS, , ANTH IS SHOWING NOT ELIGIBLE AND [facility] IS SHOWING ANTHEM PRIMARY. PATIENT NEEDS TO GET THIS RESOLVED, [employer] Auth [id number] Visits 09/25/24-10/25/24) [employer] Auth [id number] Date Ext 09/25/24-11/24/24 [employer] Auth [id number] PT Visits 11/19 - 12/19) Onset Date: 08/08/24 Diagnosis: Right JORDAN & UE & Chest Lymphedema Initial Eval Date: 09/25/24 Precautions: Hx CA Follow up: [place], 01/26/25 Medication changes: None Reassessment Date: 12/19/24 FOTO Date: 12/19/24 Time in/Out: 5' late [id number] Pain Scale: 6/10 all over right UE/chest Subjective: Pt is suppose to met Tia here to go over pump again, not sure what time. Objective: Right JORDAN stretches prior to MLD Patient received manual lymphatic drainage for Right Upper extremities & Chest Secondary lymphedema utilizing: Neck: Short Neck: Yes Chest (anterior) Bilat Axilla: left Groin: right Abdominals: Superficial and Deep breathing Upper extremity: right With patient in supine Compression: Sleeve: Independent Other: Removal instructions given, including symptoms of circulation compromise: Yes Instructed to call with any questions or problems: Yes HEP Issued: Yes Self MLD handout issued, with instruction: Yes Additional comments: Manual Therapy: 55 min Total Timed Treatment: 55 min Total Treatment Time: 55 min Charges: MT x 4 Assessment: Pt doing well w/ treatment. Pt needs to use pump more to help with symptoms. Plan: Con't PT for therex & manual therapy. Romana Bowman PTA 12/03/2024 documented in this encounter Plan of Treatment Upcoming Encounters Date Type Department Care Team (Late st Contact Info) Description 02/02/2025 11:20 AM EDT Telemedicine [facility] [address] [facility] [address] [place] [address] Samm Ledesma APRN [address] [place] [address] 02/04/2025 11:[address] [facility] Women's Wellness [facility] [address] Tacho Echavarria MD [address] [place] [address] Naya García PA-C [address] [place] [address] [address] [place] [address] 02/04/2025 2:00 PM EDT Appointment [facility] [place], [place] [id number] Tacho Echavarria MD [address] [place], [place] [id number] 02/04/2025 2:20 PM EDT [facility]ointment [facility] [place], [place] [id number] Tacho Echavarria MD [address] [place], [place] [id number] 02/10/2025 10:30 AM EDT Office Visit [facility] [address] [facility] [address] [place] [address] Sin Tran MD [address] [place] [address] 03/02/2025 11:40 AM EDT Office Visit [facility] Mahmood [address] [place] [address] [place] [address] [place] [address] 03/02/2025 12:45 PM EDT Procedure visit [facility] [address] [facility] [address] [place] [address] Samm Ledesma, PHLEBOTOMIST ASSOCIATE [address] [facility] [address] [place] [address] 04/29/2025 9:15 AM EDT Appointment [facility] RAD ONC [place], [place] [id number] Batool Celis MD [address] [place] [address] [place] [address] documented as of this encounter Goals Goal [...] documented as of this encounter Care Teams Parts Runner Relationship Specialty [place] [address] [place] [address] PCP - General 06/21/10 Arlyn Schmidt MD [address] [place] [address] Consulting Physician Internal Medicine-Endocrinology , Diabetes & Metabolism 11/28/20 Tacho Echavarria MD [address] [place] [address] Internal Medicine-Medical Oncology 11/12/23 Matt Ulrich MD 1 [place], [place] [id number] Surgery-Surgical Oncology 12/04/23 Eze Brock Pastoral Care 12/13/23 Cheryl Nair, RN Oncology Nurse Navigator 03/25/2412/13 Annette Walker, ARACELI Training And Quality Manager 05/13/24 Batool Celis MD [address] [place] [address] [place] [address] Radiation Oncologist Radiology-Radiation Oncology 06/08/24 documented as of this encounter
--- OUTSIDE RECORDS SUMMARY | 2024-12-03 09:00 | XMS_ITS | Encounter Summary ---
Author Organization [place] [address] Care Team Providers Care Mixing Roll Operator Name Role Phone Chetna Cedeno MD Primary Care Provider [phone] Arlyn Schmidt MD Unavailable [phone] Tacho Echavarria MD Unavailable [phone] Matt Ulrich MD Unavailable [phone] Eze Brock Unavailable Cheryl Nair RN Unavailable [phone] Annette Walker MANAGER WHOLESALE Unavailable [phone] Batool Celis MD Unavailable [phone] Reason for Visit * Physical Therapy (Emergency) - Closed Specialty Diagnoses / Procedures Referred By Contac t Referred To Contact Physical Therapy Diagnoses 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) Chemotherapy follow-up examination Malignant neoplasm of right female breast, unspecified estrogen receptor status, unspecified site of breast (HCC) Port-A-Cath in place Tacho Echavarria MD [address] [place] [address] Phone: tel: fax: Shaunna Workman PT Referral ID Status Reason Start Date Expiration Date V isits Requested Visits Authorized [id number] Closed Specialty Services Required 10/08/2024 01/28/202507 31 Encounter Details Date Type Department Care Team (Latest Contact Info) Description 12/03/2024 9:00 AM EDT - 12/03/2024 11:59 PM EDT Hospital Encounter [facility] Physical Therapy [address] [place] [address] Shaunna Workman PT Discharge Disposition: Home or [...] from your doctor or pharmacy? Never 11/07/2023 [facility] Utilities Answer Date Recorded In the past [...] often do you attend chur ch or latter-day services? 1 to 4 times per year 11/07/2023 Do you belong to any clubs o r organizations such as yarsanism groups, unions, fraternal or athletic groups, or [...] Date Recorded PHQ-2 Total Score 5 07/07/2024 [facility] of Occupat ional Health - Occupational Stress [...] any time in the past 12 m [facility], were you homeless or living in a mcc (including now)? No 11/07/2023 [facility] IP Transportation Answer D ate Recorded In [...] 4 fluticasone propionate (FLONASE) 50 mcg/actuation Nasl [place], Suspension 1 [place] by Nasal route daily. 1 Each 11 [...] Progress Notes * Shaunna Workman, PT - 12/03/2024 9:30 AM EDT Images from the original note were not included. Physical Therapy Treatment Note Patient Name: El Cole : 1965 Visit #: [id number] Onset Date: 10/08/24 Diagnosis: 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) Chemotherapy follow-up examination Malignant neoplasm of right female breast, unspecified estrogen receptor status, unspecified site of breast (HCC) Port-A-Cath in place Restrictions/Precautions: has Katherine anali jules that she is attending 01/02/25 and would like to be able to walk with no AD by then, [place] (but pt states that she was told this may have been a misdiagnosis), currently taking chemo pill, R mastectomy Jun 2024, radiation ended 09/25/24, chronic back issues with sciatica Physician: Jericho ESCOBAR Follow Up: 11/11/24 Evaluation Date: 10/30/24 Reassessment Due: 12/26/24 Primary Insurance: MEDICAID /[facility] [place] [id number] MDR Secondary Insurance: n/a Insurance Authorization: AMB REFERRAL TO PHYSICAL THERAPY Authorized (10/08/2024-01/28/2025) Visits Requested Visits Authorized Visits Completed Visits Scheduled Details Referral ID: [id number] Authorization Status Reason: Received Carrier Authorization Authorization Comments: -- Referred To: Shaunna Workman PT at [facility] PT Referred By: Tacho Echavarria MD at [facility] CANCER CTR MED ONC, [facility] Creation Date: 10/08/2024 Referral Reasons: Specialty Services Required Referral Order: AMB REFERRAL TO PHYSICAL THERAPY Time In/Out: 935/1002 Timed Treatment Minutes: Therapeutic Exercise 27 minutes Total Timed Code Treatment Minutes: 27 Untimed Treatment Minutes: None Total Treatment Minutes: 27 Medication Changes: denies Pain: 6 Location: L knee. R shoulder/chest/arm Description: Pain is described as aching Subjective pt was late for session d/t pump vendor was late and still working with pt when PT arrived for session. pt reports that she has a bruise on her L knee that hurts and she isn't certain what happened to it. Objective: pt seated in waiting area with pump vendor when PT arrived for therapy session. pt ambulate in [id number] and increased trunk flex as well as increased distance btw 4WW and body Treatment Check if done Treatment Description/Reps Ther Ex [x] nustep x6 minutes at seat 8, arms 8 and level 6. performed to improve endurance and strength aswell as to improve B UE/LE reciprocal mov't pattern. [] STS x5 completed in 15.41 seconds ind [x] NK table ext with 2.5# 2x10B. min verbal cues for proper technique and form. flex with 2.5# 2x10B. min verbal cues for proper technique and form. [x] education Needs Assistance: No Understood: Yes chief engineer's helper // bars with B UE support [] high marches x10B [] hamstring curls x10B [] alternating toe taps to orange cones x10B [] alternating diagonal toe taps to orange cones x10B [] tilt board L/R/ant/post x15B in each direction [] forward lunge onto bosu x10B [] heel raise into squat x10B [] shoulder circles x20B Cw/CCw [] shoulder retraction x15B [x] posture cues for upright posture with sitting/standing Gait [] TUG [] 6MWT pt amb 612' with 4WW. [...] deficits. pt verbalized understanding of this again. chief engineer's helper // bars with unilat UE support [] forward walking working on upright posture, proper [...] B hip abd/add strength [] grape vine [] forward/side/backward steps L<->R working on upright posture, core stability and changing directions [] forward step with heel raise after each step with B UE support: working on upright posture, corestability and gastroc soleus strength [] arm swing with no UE support: to improve arm swing during gait [] NMR education chief engineer's helper // bars with no support with gait belt donned [] sidesteps on airex L<->R with CGA. initially demo increased FOF however no significant LOBnoted after this [] tandem gait on airex with CGA/SBA. slight [...] between each step on airex L<->R [] forward and backward tap off/on to airex x5B. CGA. slight unsteadiness but no significant LOB [] tandem stance on airex [] stand on airex and tap L/R to floor with opposite foot HEP: Access Code: [email or web address] URL: [email or web address] Date: 11/11/2024 Prepared by: Romana Bowman Exercises [...] daily - 10-15 reps Assessment session focused on strength training. pt tolerated well. Goals STG set for 6 weeks Update Update Update Update Goal status 1. Patient will be Independent with HEP to improve detention health and reduce risk for injury. indbut [...] increase from 727 feet with RW to 9444-8788 feet with LRAD to improve gait elisha [...] signed by: Signed: Shaunna Workman PT Date: 12/03/2024 documented in this encounter Plan of Treatment Upcoming Encounters Date Type Department Care Team (Late st Contact Info) Description 02/02/2025 11:20 AM EDT Telemedicine [facility] [address] [facility] [address] [place] [address] Samm Ledesma, [facility] PHLEBOTOMISTS [address] [facility] [address] [place] [address] 02/04/2025 11:00 AM EDT Appointment [facility] Women's Wellness [facility] [place] [address] Tacho Echavarria MD [address] [place] [address] Naya García PA-C [address] [place] [address] [address] [place] [address] 02/04/2025 2:00 PM EDT Appointment [facility] [place] [address] Tacho Echavarria MD [address] [place], [place] [id number] 02/04/2025 2:20 PM EDT Appointment [facility] [place], [place] [id number] Tacho Echavarria MD [address] [place] [id number] 02/10/2025 10:30 AM EDT Office Visit [facility] [address] [facility] [address] [place] [address] Sin Tran MD [address] [place] [address] 03/02/2025 11:40 AM EDT Office Visit [facility] [address] [place] [address] [place] [address] [place] [address] 03/02/2025 12:45 PM EDT Procedure visit [facility] [address] [facility] [address] [place] [address] Samm Ledesma, NURSES MEDICAL ASSISTANTS PHLEBOTOMISTS [address] [facility] [address] [address] [place] [address] 04/29/2025 9:15 AM EDT Appointment [facility] RAD ONC [place], [place] [id number] Batool Celis MD [address] [place] [address] documented as of this encounter Goals Goal Patient Goal Type Associated Problems Recent Progress Patient-Stated? Author Blood Pressure < 140/90 Blood Pressure 129/95(01/15 2:00 PM EDT) No Chetna Cedeno MD Breast [facility] Breast Health On track(2024 12:01 PM EST) [...] documented as of this encounter Care Teams Mixing Roll Operator Relationship Specialty Start [place] [address] [place] [id number] PCP - General 06/21/10 Arlyn Schmidt MD [address] [place] [address] Consulting Physician Internal Medicine-Endocrinology , Diabetes & Metabolism 11/28/20 Tacho Echavarria MD [address] [place] [address] Internal Medicine-Medical Oncology 11/12/23 Matt Ulrich MD 1 [place] [address] Surgery-Surgical Oncology 12/04/23 Eze Brock Pastoral Care 12/13/23 Cheryl Nair, RN Oncology Nurse Navigator 03/25/2412/13 Annette Walker MSW Public Relations Studies Director 05/13/24 Batool Celis MD [address] [place] [address] [place] [address] Radiation Oncologist Radiology-Radiation Oncology 06/08/24 documented as of this encounter
--- OUTSIDE RECORDS SUMMARY | 2024-12-08 07:59 | XMS_ITS | Encounter Summary ---
Author Organization [place] [address] Care Team Providers Care Make Up Arranger Name Role Phone Chetna Cedeno MD Primary Care Provider [phone] Arlyn Schmidt MD Unavailable [phone] Tacho Echavarria MD Unavailable [phone] Matt Ulrich MD Unavailable [phone] Eze Brock Unavailable Cheryl Nair RN Unavailable [phone] Annette Walker CHANNEL MARKETING COORDINATOR Unavailable [phone] Batool Celis MD Unavailable [phone] Reason for Visit * Physical Therapy (Emergency) - Closed Specialty Diagnoses / Procedures Referred By Contac t Referred To Contact Physical Therapy Diagnoses 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) Chemotherapy follow-up examination Malignant neoplasm of right female breast, unspecified estrogen receptor status, unspecified site of breast (HCC) Port-A-Cath in place Tacho Echavarria MD [address] [place] [address] Phone: tel: fax: Shaunna Workman PT Referral ID Status Reason Start Date Expiration Date V isits Requested Visits Authorized [id number] Closed Specialty Services Required 10/08/2024 01/28/202507 31 Encounter Details Date Type Department Care Team (Latest Contact Info) Description 12/08/2024 7:59 AM EDT - 12/08/2024 11:59 PM EDT Hospital Encounter [facility] Physical Therapy [address] [place] [address] Shaunna Workman PT Discharge Disposition: Home or [...] from your doctor or pharmacy? Never 11/07/2023 [facility] Utilities Answer Date Recorded In the past [...] often do you attend chur ch or pentecostal services? 1 to 4 times per year 11/07/2023 Do you belong to any clubs o r organizations such as quaker groups, unions, fraternal or athletic groups, or [...] Date Recorded PHQ-2 Total Score 5 07/07/2024 [facility] Occupat ional Health - Occupational Stress [...] any time in the past 12 m [facility], were you homeless or living in a senior care (including now)? No 11/07/2023 [facility] IP Transportation Answer D ate [...] by mouth daily. 30 Tablet 1 5 atogepant 60 mg Oral Tablet Take 1 Tablet by mouth daily. 30 Tablet 5 01/06/2025 12:01 PM EDT 5 BOTOX 200 unit Inj Recon Soln [...] 4 fluticasone propionate (FLONASE) 50 mcg/actuation Nasl Aguilar, Suspension 1 Aguilar by Nasal route daily. 1 Each 11 4 Inhalational Spacing Device (AEROCHAMBER MV) Misc Spacer 1 Each by Misc.(Non-Drug; Combo Route) route as needed. 1 Device 0 ketorolac (TORADOL) 10 mg Oral Tablet Take 10 mg by mouth once. 5 LORazepam (ATIVAN) 0.5 mg Oral TabletIndications :Anxiety [...] TAKE AND DRIVE 45 Tablet 5 3 ubrogepant (UBRELVY) 100 mg Oral Tablet Take one tablet by mouth at onset of migraine. May repeat dose in 2 hours one time up to a maximum of 200mg per 24 hours. 10 Tablet 5 01/15/2025 3:10 PM EDT 5 UNABLE TO FIND Fentanyl 500 mcg/ml in pain pump. 60 mcg/day ketorolac (TORADOL) 10 mg Oral Tablet Take 1 Tablet by mouth every 6 hours as needed for Pain for up to 5 days. 20 Tablet 5 12/14/19 25 lidocaine-priloca ine (EMLA) Top CreamIndications: Invasive ductal carcinoma of breast, female, right (HCC) Apply dime size amount to port area 30 minutes prior to port access. 30 g 1 5 01/19/20 25 documented as of this encounter Discharge Disposition Disposition Code Departure Means Destination Home or Self Care documented in this encounter Progress Notes * Shaunna Workman, PT - 12/08/2024 8:00 AM EDT Images from the original note were not included. Physical Therapy Treatment Note Patient Name: El Cole DOB: 1965 Visit #: [id number] Onset Date: 10/08/24 Diagnosis: 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) Chemotherapy follow-up examination Malignant neoplasm of right female breast, unspecified estrogen receptor status, unspecified site of breast (HCC) Port-A-Cath in place Restrictions/Precautions: has [facility] vicente that she is attending 01/02/25 and would like to be able to walk with no AD by then, [place] (but pt states that she was told this may have been a misdiagnosis), currently taking chemo pill, R mastectomy Jun 2024, radiation ended 09/25/24, chronic back issues with sciatica Physician: Jericho ESCOBAR Follow Up: 11/11/24 Evaluation Date: 10/30/24 Reassessment Due: 12/26/24 Primary Insurance: [id number] [id number] [facility] Secondary Insurance: n/a Insurance Authorization: AMB REFERRAL TO PHYSICAL THERAPY Authorized (10/08/2024-01/28/2025) Visits Requested Visits Authorized Visits Completed Visits Scheduled Details Referral ID: [id number] Authorization Status Reason: Received Carrier Authorization Authorization Comments: -- Referred To: Shaunna Workman PT at [facility] PT Referred By: Tacho Echavarria MD at [facility], [facility] Date: 10/08/2024 Referral Reasons: Specialty Services Required Referral Order: AMB REFERRAL TO PHYSICAL THERAPY Time In/Out: 804/847 Timed Treatment Minutes: Neuro re-education 14 minutes Therapeutic Exercise 29 minutes Total Timed Code Treatment Minutes: 43 Untimed Treatment Minutes: None Total Treatment Minutes: 43 Medication Changes: denies Pain: 6-7 Location: everywhere Description: Pain is described as aching Subjective pt states that she is sore d/t she moved this weekend and she is now an hour and 30 minutes away. Objective: pt seated in waiting area when PT arrived for therapy session. pt ambulate in with 4WW and increased trunk flex as well as increased distance btw 4WW and body Treatment Check if done Treatment Description/Reps Ther Ex [x] nustep x5 minutes at seat 8, arms 8 and level 7. performed to improve endurance and strength aswell as to improve B UE/LE reciprocal mov't pattern. [] STS x5 completed in 15.41 seconds ind [] NK table ext with 2.5# 2x10B. min verbal cues for proper technique and form. flex with 2.5# 2x10B. min verbal cues for proper technique and form. 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 pt verbalized understanding of this again. 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 increased difficulty with L foot forward - increased L LOB noted and CGA required [x] tapping foam cushion directly in front of foot working on upright posture and motor control/coordination of B LE. required CGA for increased unsteadiness. mod cues. HEP: Access Code: [email or web address] URL: [email or web address] Date: 11/11/2024 Prepared by: Romana Bowman Exercises [...] 2 x daily - 10-15 reps Assessment pt progressing well with strength, endurance and balance. fatigue noted around 35 minutes of session but after short seated rest break, pt was able to complete session. Goals STG set for 6 weeks Update 11/26/24 Update Update Update Goal status 1. 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 indbut not compliant progressing 2. FOTO Score will increase from 34 to 39 indicating overall functional improvement. 34 progressing 3. Patient???s PSFS score on walking task will improve from 7 to 8, noting an improvement in function 9 met LTG set for 12 weeks Update 11/26/24 Update Update Update Goal status 1. FOTO Score will increase from 34 to 44 indicating overall functional improvement. 34 progressing 2. Patient???s PSFS score on walking task will improve from 7 to 9, noting an improvement in function met met 3. 6 minute walk test score will increase from 727 feet with RW to 2522-0337 feet with LRAD to improve gait elisha [...] signed by: Signed: Shaunna Workman PT Date: 12/08/2024 documented in this encounter Plan of Treatment Upcoming Encounters Date Type Department Care Team (Late st Contact Info) Description 02/02/2025 11:20 AM EDT Telemedicine [facility] [address] [facility] [address] [place] [address] Samm Ledesma APRN [address] [facility] [address] [place], [place] [id number] 02/04/2025 11:00 AM EDT Appointment [facility] Women's Wellness [facility] [place] [address] Tacho Echavarria MD [address] [place] [address] Naya García PA-C [address] [place] [address] [address] [place] [address] 02/04/2025 2:00 PM EDT Appointment [facility] [place], [place] [phone] Tacho Echavarria MD [address] [place] [address] [id number] 02/04/2025 2:20 PM EDT Appointment [facility] [place], [place] [phone] Tacho Echavarria MD [address] [place] [address] [phone] 02/10/2025 10:30 AM EDT Office Visit [address] [address] Sin Tran MD [address] [facility] [place] [address] 03/02/2025 11:40 AM EDT Office [place] [facility] [place] [facility] [address] [place] [address] [place] [address] [place] [address] 03/02/2025 12:45 PM EDT Procedure visit [facility] [address] [place] [address] Samm Ledesma APRN [address] [place] [address] 04/29/2025 9:15 AM EDT Appointment [facility] [place] [address] Batool Celis MD [address] [place] [address] [place] [address] documented as of this encounter Goals Goal [...] documented as of this encounter Care Teams Make Up Arranger Relationship Specialty [place] [address] [place] [id number] PCP - General 06/21/10 Arlyn Schmidt MD [address] [place] [address] Consulting Physician Internal Medicine-Endocrinology , Diabetes & Metabolism 11/28/20 Tacho Echavarria MD [address] [place] [phone] Internal Medicine-Medical Oncology 11/12/23 Matt Ulrich MD [address] [place] [address] Surgery-Surgical Oncology 12/04/23 Eze Brock Pastoral Care 12/13/23 Cheryl Nair, RN Oncology Nurse Navigator 03/25/2412/13 Annette Walker, ARACELI Steak Tenderizer Machine 05/13/24 Batool Celis MD 1 [facility] CANCER [place], [place] [phone] Radiation Oncologist Radiology-Radiation Oncology 06/08/24 documented as of this encounter
--- OUTSIDE RECORDS SUMMARY | 2024-12-08 14:35 | XMS_ITS | Encounter Summary ---
Author Organization [place] [address] Care Team Providers Care Logistics Supervisor Name Role Phone Chetna Cedeno MD Primary Care Provider [phone] Arlyn Schmidt MD Unavailable [phone] Tacho Echavarria MD Unavailable [phone] Matt Ulrich MD Unavailable [phone] Eze Brock Unavailable Cheryl Nair RN Unavailable [phone] Annette Walker STEWARD/STEWARDESS BATH Unavailable [phone] Batool Celis MD Unavailable [phone] Reason for Visit * In Office Procedure (Routine) - PCP Precert Acquired Specialty Diagnoses / Procedures Referred By Van butler Referred To Contact Neurology Diagnoses Chronic migraine without aura, intractable, with status migrainosus Procedures BOTOX COMMUNICATION ORDER NC CHEMODERVATE FACIAL/TRIGEM/CERV MUSC MIGRAINE NC INJECTION,ONABOTULINUMTOXINA Samm Ledesma APRN Phone: tel: fax: Samm Ledesma PROFESSIONAL WRESTLER Phone: tel: fax: Referral ID Status Reason Start Date Expiration Date V isits Requested Visits Authorized [id number] PCP Precert Acquired 09/08/2024 09/08/2025 1 4 Encounter Details Date Type Department Care Team (Latest Contact Info) Description 12/08/2024 2:35 PM EDT Procedure visit [facility] [address] [place] [address] Samm Ledesma, PROFESSIONAL WRESTLER [address] [place] [address] Chronic migraine without aura, intractable, with status migrainosus (Primary Dx) Discharge Disposition: Home or Self Care Social [...] from your doctor or pharmacy? Never 11/07/2023 [employer] Utilities Answer Date Recorded In the past 12 months has th e electric, gas, oil, or water [employer] threatened to shut off services in your home? No 07/07/2024 Social Connection and Isolation Panel [NHANES] A nswer Date Recorded In a typical week, how many times do you talk on the phone with family, friends, or neighbors? Once a week 11/07/19 24 How often do you get togethe r with friends or relatives? Once a week 11/07/2023 How often do you attend chur ch or restoration services? 1 to 4 times per year 11/07/2023 Do you belong to any clubs o r organizations such as holiness groups, unions, fraternal or athletic groups, or [...] Date Recorded PHQ-2 Total Score 5 07/07/2024 [facility] - Occupational Stress Questionnaire Answer Date Recorded [...] any time in the past [address] [facility], were you homeless or living in a assisted (including now)? No 11/07/2023 [facility] IP Transportation Answer D ate [...] Macarena Henson CCMA documented in this encounter Ordered Prescriptions Prescription Sig Dispense Quantity Refills Last Filled Start Date End Date ubrogepant (UBRELVY) 100 mg Oral Tablet Take one tablet by mouth at onset of migraine. May repeat dose in 2 hours one time up to a maximum of 200mg per 24 hours. 10 Tablet 5 01/15/2025 3:10 PM EDT 12/08/2024 atogepant 60 mg Oral Tablet Take 1 Tablet by mouth daily. 30 Tablet 5 01/06/2025 12:01 PM EDT 12/08/2024 ketorolac (TORADOL) 10 mg Oral Tablet Take 1 Tablet by mouth every 6 hours as needed for Pain for up to 5 days. 20 Tablet 12/08/2024 06/08/202 5 documented in this encounter Discharge Disposition Disposition Code Departure Means Destination Home or Self Care documented in this encounter Progress Notes * Samm Ledesma, LEYLA - 12/08/2024 2:35 PM EDT [facility] Neurology Outpatient Progress Note [facility] 12/07/2024 PATIENT NAME: Meri Cole : 1965 CHIEF COMPLAINT: Chronic Refractory Headaches (346.91, 327.23) LAST INJECTION: 09/15/2024 PROCEDURE VISIT # 18 PRIMARY NEUROLOGIST: JOHANN Ledesma Current migraine treatment: Botox (started 11/11/2019- restarted 03/17/2024) Qulipta 30 mg daily (started 09/2024) Tizanidine PRN Compazine Toradol (CB) Past/Failed headache therapy: Ubrelvy Nurtec - ineffective Toradol PO- works prn Ajovy Topamax Ultram Imitrex - tongue swelling PROCEDURE: Botulinum Toxin - Botox A. (200 units) Dilution 1:1 (with NS) Risks and benefits of the procedure were explained to the patient. Written and verbal consent obtained today and witnessed by Shanae Webber . Monthly migraine frequency: - Repeat injections today. Advanced practitioner performed injections. Predetermined injection sites include: Procerus (5 units) Bilateral Corrugators (5 units each side) Frontalis (5-5 each side) Temporalis (5-5-5-5 on the right side and 5-5-5-5 on the left side) Occipitalis (5-5-5 on the right side and 5-5-5 on the left side) Cervical PSPs (5-5 units each side) Trapezius (5-5-5 on the right, 5-5-5 on the left) No complaints or side effects following the procedure. 155 units injected total. 45 units wasted. 200 units used total. Special instructions: Given neck and traps Botox provided by: *Specialty pharmacy* Botox Lot number: [id number] EXP 12/2026 [facility] # [id number] Saline Lot number: [id number] EXP 02/04/2026 IMPRESSION: Repeat botox injection. Will return every 3 months for repeat injections. PLAN: -- RTC as needed for repeat injection if successful. -- Contact sooner if any adverse effects. --Increase Qulipta to 60 mg once daily --Restart Ubrelvy 100 mg as abortive. --Toradol 10 mg tablets if Ubrelvy fails. Discussed proper use and potential side effects of all medications. Prior to the procedure, the patient???s name and were confirmed and reconciled with the goal for the study. A pre-procedural pause was performed to confirm the side and specific location of the procedure. documented in this encounter Miscellaneous Notes * Addendum Note - Shanae Webber MA - 12/08/2024 2:35 PM EDTAddended by: SHANAE WEBBER on: 12/08/2024 03:35 PM Modules accepted: Orders documented in this encounter Plan of Treatment Upcoming Encounters Date Type Department Care Team (Late st Contact Info) Description 02/02/2025 11:20 AM EDT Telemedicine [facility] [address] [facility] [address] [place] [address] Samm Ledesma APRN [address] [place] [address] 02/04/2025 11:00 AM EDT Appointment [facility] Women's Wellness [facility] [place] [phone] Tacho Echavarria MD [address] [place] [address] [phone] Naya García PA-C [address] [place] [address] 02/04/2025 2:00 PM EDT Appointment [place] [address] Tacho Echavarria MD [address] [place] [address] 02/04/2025 2:20 PM EDT Appointment [facility] [place], [place] [phone] Tacho Echavarria MD [address] [place] [address] [phone] 02/10/2025 10:30 AM EDT Office Visit [facility] [address] [facility] [address] [place] [address] Sin Tran MD [address] [place] [address] 03/02/2025 11:40 AM EDT Office Visit [facility] [address] [place] [address] [place] [address] [place] [address] 03/02/2025 12:45 PM EDT Procedure visit [facility] [address] [place] [address] Samm Ledesma, PROFESSIONAL WRESTLER [address] [place] [address] 04/29/2025 9:15 AM EDT Appointment [facility] RAD ONC [place], [place] [phone] Batool Celis MD [address] [place] [address] CANCER CARE [place], [place] [id number] documented as of this encounter Goals Goal Patient Goal Type Associated Problems Recent Progress Patient-Stated? Author Blood Pressure < 140/90 Blood Pressure 129/95(01/15 2:00 PM EDT) No Chetna Cedeno MD Breast Health Breast Health On track(2024 12:01 PM EST) Jasmin Rodriguez RN Note: Patient acknowledges understanding of new diagnosis, plan of care, available resources and how to contact Nurse Navigator with any future questions or concerns. Breast Health Breast Health Jasmin Rodriguez RN Note: Patient will be compliant with monthly SBE and is aware of who to contact for any unusual or concerning findings. Maintain a healthy diet, exercise regularly and maintain an ideal body weight General Sanam Champion MA documented as of this encounter Visit Diagnoses Diagnosis Chronic migraine without aura, intractable, with status migrainosus- Primary documented in this encounter Administered Medications Inactive Administered Medications - up to 1 most recent administrations Medication Order MAR Action Action Date Dose Rate Site botulinum toxin type A (BOTOX) injection 155 Units 155 Units, Intramuscular, ONCE, 1 dose, On Sat12/08/24 at 1545, Dx: 1. Chronic migraine without aura, intractable, with status migrainosusIndications:Chroni c migraine without aura, intractable, with status migrainosus Given 12/08/2024 3:34 PM EDT 155 Units Othe r documented in this encounter Discontinued Medications Medication Sig Discontinue Reason Start Date End Da te atogepant 30 mg Oral Tablet Take 1 Tablet by mouth daily. Alternate therapy 09/15/2024 12/08/2024 documented as of this encounter Additional Health Concerns Assessment Noted Time PHQ-9 Depression Total Score: 17 024 8:39 AM EST PHQ-2 Depression Total Score: 5 07/07/20 24 8:39 AM EST documented as of this encounter Care Teams Logistics Supervisor Relationship Specialty [place] [address] [place] [address] PCP - General 06/21/10 Arlyn Schmidt MD [address] [place] [address] Consulting Physician Internal Medicine-Endocrinology , Diabetes & Metabolism 11/28/20 Tacho Echavarria MD [address] [place] [phone] Internal Medicine-Medical Oncology 11/12/23 Matt Ulrich MD 1 [place] [address] Surgery-Surgical Oncology 12/04/23 Eze Brock Pastoral Care 12/13/23 Cheryl Nair, RN Oncology Nurse Navigator 03/25/2412/13 Annette Walker, ARACELI Electric Motor Controls Assembler 05/13/24 Batool Celis MD 1 [facility] [place] [address] Radiation Oncologist Radiology-Radiation Oncology 06/08/24 documented as of this encounter
--- OUTSIDE RECORDS SUMMARY | 2024-12-10 14:30 | XMS_ITS | Encounter Summary ---
Author Organization [place] [address] Care Team Providers Care Oracle Reports Developer Name Role Phone Chetna Cedeno MD Primary Care Provider Arlyn Schmidt MD Unavailable [phone] Tacho Echavarria MD Unavailable Matt Ulrich MD Unavailable Eze Brock Unavailable Cheryl Nair RN Unavailable [phone] Annette Walker PEDIATRIC NEUROPSYCHOLOGIST Unavailable [phone] Batool Celis MD Unavailable [phone] Encounter Details Date Type Department Care Team (Latest Contact Info) Description 12/10/2024 2:30 PM EDT - 12/10/2024 2:45 PM EDT Hospital Encounter [facility] [place], [place] [id number] Tacho Echavarria MD [address] [place] [address] [phone] Invasive ductal carcinoma of breast, female, right (HCC) (Primary Dx); 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) Discharge Disposition: Home or Self Care Social [...] from your doctor or pharmacy? Never 11/07/2023 [facility] Utilities Answer Date Recorded In [...] often do you attend chur ch or lutheran services? 1 to 4 times per year [...] Date Recorded PHQ-2 Total Score 5 07/07/2024 [facility] - Occupational Stress [...] any time in the past 12 [facility], were you homeless or living in a prison (including now)? No 11/07/2023 [facility] IP Transportation Answer D ate [...] 12/06/2022 2:08 PM Macarena Henson CCMA * Does this person have serious difficulty walking or climbing stairs? Answer Date of Assessment Author No 12/06/2022 2:08 PM Macarena Henson CCMA * Does this person have difficulty dressing or bathing? Answer Date of Assessment Author No 12/06/2022 2:08 PM EDT Macarena Marion CCMA * Because of a physical, mental or emotional condition, does this person have difficulty doing errands alone such as visiting a doctor's office or shopping? Answer Date of Assessment Author No 12/06/2022 2:08 PM EDMacarena Brunner CCMA documented as of this encounter Mental Status * Because of a physical, mental or emotional condition, does this person have serious difficulty concentrating, remembering or making decisions? Answer Entry Date Author No 12/06/2022 2:08 PM EDMacarena Brunner CCMA documented in this encounter Medications at [...] 4 fluticasone propionate (FLONASE) 50 mcg/actuation Nasl [place], Suspension 1 [place] by Nasal route daily. 1 Each 11 4 Inhalational Spacing Device (AEROCHAMBER MV) Misc Spacer 1 Each by [facility].(Non-Drug; Combo Route) route as needed. 1 Device [...] or Self Care documented in this encounter Plan of Treatment Upcoming Encounters Date Type Department Care Team (Late st Contact Info) Description 02/02/2025 11:20 AM EDT Telemedicine [facility] [address] [facility] [address] [place] [address] Samm Ledesma, ACCOUNTS PAYABLE REPRESENTATIVE [address] [place] [address] 02/04/2025 11:00 AM EDT Appointment [facility] Women's Wellness [facility] [address] [place] [id number] Tacho Echavarria MD [address] [place], [place] [id number] Naya García PA-C [address] [place] [address] 02/04/2025 2:00 PM EDT Appointment [place] [address] Tacho Echavarria MD 1 [place] [address] 02/04/2025 2:20 PM EDT [facility]ointment [facility] [place] [address] Tacho Echavarria MD 1 [place] [address] 02/10/2025 10:30 AM EDT Office Visit [address] [place] [address] Sin Tran MD [address] [place] [address] 03/02/2025 11:40 AM EDT Office Visit ROMULO Mahmood [address] [place] [address] [place] [address] [place] [address] 03/02/2025 12:45 PM EDT Procedure visit [facility] [address] [place] [address] Samm Ledesma, ACCOUNTS PAYABLE REPRESENTATIVE [address] [place], [place] [id number] 04/29/2025 9:15 AM EDT Appointment [place] [address] Batool Celis MD [address] [place] [address] [place] [address] documented as of this encounter Goals Goal Patient Goal Type Associated Problems Recent Progress Patient-Stated? Author Blood Pressure < 140/90 Blood Pressure 129/95(01/15 2:00 PM EDT) No Chetna Cedeno MD Breast [facility] Breast Health On track(2024 12:01 PM EST) No Jasmin Porter, RAUL Note: Patient acknowledges understanding of new diagnosis, plan of care, available resources and how to contact Nurse Navigator with any future questions or concerns. Breast [facility] Breast [facility] No Jasmin Porter, RAUL Note: Patient will be compliant with monthly SBE and is aware of who to contact for any unusual or concerning findings. Maintain a healthy diet, exercise regularly and maintain an ideal body weight General No Sanam Julio MA documented as of this encounter Procedures Procedure Name Priority Date/Time Associated Diagnosis Comments CBC WITH DIFF STAT 12/10/2024 2:43 PM EDT 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) COMPREHENSIVE METABOLIC PANEL STAT 12/10/2024 2:43 PM EDT 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) documented in this encounter Results * (ABNORMAL) COMPREHENSIVE METABOLIC PANEL (12/10/2024 2:43 PM EDT) Sodium 140 136 - 145 mmol/L 12/10/2024 3:08 PM EDT [facility] Potassium 3.9 3.5 - 5.0 mmol/L 12/10/2024 3:08 PM EDT [facility] Chloride 105 98 - 107 mmol/L 12/10/2024 3:08 PM EDT [facility] Total CO2 23 22 - 29 mmol/L 12/10/2024 3:08 PM EDT [facility] Anion Gap 12 7 - 16 mmol/L 12/10/2024 3:08 PM EDT [facility] Calcium 8.8 8.6 - 10.4 mg/dL 12/10/2024 3:08 PM EDT [facility] Glucose Lvl 100(H) 70 - 99 mg/dL 12/10/2024 3:08 PM EDT [facility] BUN 9 6 - 20 mg/dL 12/10/2024 3:08 PM EDT [facility] Creatinine 0.75 0.51 - 1.30 mg/dL 12/10/2024 3:08 PM EDT [facility] Albumin 4.0 3.5 - 5.2 gm/dL 12/10/2024 3:08 PM EDT [facility] Total Protein 6.3(L) 6.4 - 8.3 gm/dL 12/10/2024 3:08 PM EDT [facility] Bili Total 0.4 0.2 - 1.3 mg/dL 12/10/2024 3:08 PM EDT [facility] ALT 13 <=41 U/L 12/10/2024 3:08 PM EDT [facility] AST 21 <=40 U/L 12/10/2024 3:08 PM EDT [facility] Alk Phos 110 36 - 123 U/L 12/10/2024 3:08 PM EDT [facility] eGFR (CKD-EPIcr 2020) 92 >=60 mL/min/1.7 3 m2 12/10/2024 3:08 PM EDT [facility] Comment:Estimated GFR was ca lculated using the CKD-EPIcr (2020) equation refit without race. The equation is recommended by the National Kid[employer] - [place] [employer] of Neph[employer] Task Force. Blood VENOUS BLOOD / Unknown Port / Unknown 12/10/2024 2:43 PM EDT 12/10/2024 2:46 PM EDT Tacho Echavarria MD CHEMISTRY ORDERABLES Final Result [facility] [address] [place] [address] * (ABNORMAL) CBC WITH DIFF (12/10/2024 2:43 PM EDT) [facility] WBC 5.1 3.7 - 10.3 x10(3)/mc L 12/10/2024 2:51 PM EDT [facility] RBC 3.33(L) 3.90 - 5.20 x10(6)/mc L 12/10/2024 2:51 PM EDT [facility] Hgb 9.9(L) 11.2 - 15.7 g/dL 12/10/2024 2:51 PM EDT [facility] Hct 30.2(L) 34.0 - 45.0 % 12/10/2024 2:51 PM EDT [facility] MCV 90.7 80.0 - 100.0 fL 12/10/2024 2:51 PM EDT [facility] MCH 29.7 26.0 - 34.0 pg 12/10/2024 2:51 PM EDT [facility] MCHC 32.8 30.7 - 35.5 g/dL 12/10/2024 2:51 PM EDT [facility] RDW 15.0(H) <=14.9 % 12/10/2024 2:51 PM EDT [facility] Platelet 174 155 - 369 x10(3)/mc L 12/10/2024 2:51 PM EDT [facility] MPV 8.7(L) 8.8 - 12.5 fL 12/10/2024 2:51 PM EDT [facility] Neut # Prelim 3.2 1.6 - 6.1 x10(3)/mc L 12/10/2024 2:51 PM EDT [facility] Comment:Preliminary automate d absolute neutrophil count. Value may change if manual differential is indicated. Neut Percent 62.1 % 12/10/2024 2:51 PM EDT [facility] Comment:Neutrophils equals s egs plus bands Imm Gran% 0.2 % 12/10/2024 2:51 PM EDT [facility] Comment:Automated count of m etamyelocytes, myelocytes and promyelocytes. Lymph Percent 29.4 % 12/10/2024 2:51 PM EDT [facility] [place] Percent 5.7 % 12/10/2024 2:51 PM EDT [facility] Eos Percent 1.8 % 12/10/2024 2:51 PM EDT [facility] Baso Percent 0.8 % 12/10/2024 2:51 PM EDT [facility] Neut # 3.2 1.6 - 6.1 x10(3)/mc L 12/10/2024 2:51 PM EDT [facility] Comment:Neutrophils equals s egs plus bands IMMGRAN# 0.0 0.0 - 0.1 x10(3)/mc L 12/10/2024 2:51 PM EDT [facility] Comment:Automated count of m etamyelocytes, myelocytes and promyelocytes. An absolute IG <0.1 is reported as 0.0. Lymph # 1.5 1.2 - 3.9 x10(3)/mc L 12/10/2024 2:51 PM EDT [facility] [place] # 0.3 0.3 - 0.9 x10(3)/mc L 12/10/2024 2:51 PM EDT [facility] Eos# 0.1 0.0 - 0.5 x10(3)/mc L 12/10/2024 2:51 PM EDT [facility] Baso # 0.0 0.0 - 0.1 x10(3)/mc L 12/10/2024 2:51 PM EDT [facility] Blood VENOUS BLOOD / Unknown Port / Unknown 12/10/2024 2:43 PM EDT 12/10/2024 2:45 PM EDT Tacho Echavarria MD HEMATOLOGY ORDERABLES Final Result [facility] [address] [place] [address] documented in this encounter Visit Diagnoses Diagnosis Invasive ductal carcinoma of breast, female, right (HCC)- Primary 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) documented in this encounter Administered Medications Inactive Administered Medications - up to 1 most recent administrations Medication Order MAR Action Action Date Dose Rate Site heparin flush 100 unit/mL injection 500 Units 500 Units, Intravenous, PRN, Starting on Pari 12/10/24 at 1433, Until 12/11/24 at 0408, Line Care, For Venous Access Device care and maintenance., Dx: 1. Invasive ductal carcinoma of breast, female, right (HCC)Indications:Invasive ductal carcinoma of breast, female, right (HCC) Given 12/10/2024 2:44 PM EDT 500 Units sodium chloride 0.9 % sterile syringe Intravenous, PRN, Starting on Pari 12/10/24 at 1433, Until Sat12/11/24 at 0408, Line Care, For initial access of Venous Access Device., Dx: 1. Invasive ductal carcinoma of breast, female, right (HCC)Indications:Invasive ductal carcinoma of breast, female, right (HCC) Given 12/10/2024 2:44 PM EDT 10 mL documented in this encounter Additional Health Concerns Assessment Noted Time PHQ-9 Depression Total Score: 17 024 8:39 AM EST PHQ-2 Depression Total Score: 5 07/07/20 24 8:39 AM EST documented as of this encounter Care Teams Oracle Reports Developer Relationship Specialty [place] [address] [place] [id number] PCP - General 06/21/10 Arlyn Schmidt MD [address] [place] [address] Consulting Physician Internal Medicine-Endocrinology , Diabetes & Metabolism 11/28/20 Tacho Echavarria MD [address] [place] [address] Internal Medicine-Medical Oncology 11/12/23 Matt Ulrich MD [address] [place] [address] Surgery-Surgical Oncology 12/04/23 Eze Brock Pastoral Care 12/13/23 Cheryl Nair, RN Oncology Nurse Navigator 03/25/2412/13 Annette Walker, PEDIATRIC NEUROPSYCHOLOGIST Diesel Technician 05/13/24 Batool Celis MD [address] [place] [address] Radiation Oncologist Radiology-Radiation Oncology 06/08/24 documented as of this encounter
--- OUTSIDE RECORDS SUMMARY | 2024-12-10 14:46 | XMS_ITS | Encounter Summary ---
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 resolved. Complete resolution of the hypermetabolic adenopathy at level 2 and level 3. However, one persistent dominant level 1 axillary adenopathy which is larger with the increased hypermetabolic activity with a maximum SUV 16.25 compared to 9.71 on the prior study consistent with the focal progression of the metastatic lymph node. Subtle focal parenchyma densities at the left apex and right lower lobe with the mild the trace activity. Highest maximum SUV 2.53 at the left apex. Suspect inflammatory process. Recommend correlation with the diagnostic CT of the chest. ESOPHAGOGASTRODUODENOSCOPY (EGD) Table formatting from the original result was [...] Role King Oliva MD Performing Provider Shaylee Roque???LOUIE Restrepo CRNA, RAUL Wholesale Parts Salesperson Madelyn Sidhu RN Endoscopy Nurse Aliya Friedman [...] Patient In - Proc. Room 10:[address] SKULL BASE TO MID THIGH, 11/09/2024 CLINICAL HISTORY: C50.911-Malignant neoplasm of unspecified site of right female breast (HCC)-ICD-10-CM COMPARISON: 06/23/2024 and 11/13/2023. FINDINGS: Normal distribution of physiologic background activity was present including gastrointestinal, genitourinary, cardiovascular, neurologic systems. Index activity in the right lobe of the liver was 3.7 SUV max. Head and Neck: No hypermetabolic foci. Chest: Interval right mastectomy and lymph node dissection. There is a focus of hypermetabolic activity at the uppermost anterior left mediastinum or left subclavicular chain measuring up to 3.5 SUV max which is suspicious and warrants follow-up. There is a second more lateral subtle left subclavicular focus measuring 2.7 SUV max which is also indeterminate and warrants follow-up. Abdomen and pelvis: No hypermetabolic foci. Musculoskeletal: No hypermetabolic foci. Notable CT findings: No developing mass lesion. IMPRESSION: Interval right mastectomy and lymph node dissection. There are is a focus of hypermetabolic activity in the left upper most anterior left mediastinum versus subclavicular region which are indeterminate and warrant follow-up. Additional left subclavicular focus remains indeterminate and warrants follow-up. No other evidence of metastatic disease. IMPRESSION El Cole is a 59 y.o. female who is post menopausal and presetting with cT3, N3 R breast invasive ductal ca with regional spread, but no distal spread on imaging so far. Given tumor local/regional spread (cN3), recommendation by institutional multi disciplinary breast ca Tumor board to firs consider systemic chemo therapy; s/p dd AC-> taxane x 12 weekly and then s/p MRM and R0 resection & noted to have high risk residual tumor (ypT3, yN3a, Mx) and RCB-III tumor response. Now under adjuvant RT, then plan for AI + CDK4/6 inhibitor and bone targeting tx per NCCN guidelines. MEDICAL DECISION MAKING HIGH RISK RIGHT BREAST IDC [ypT3, pN3a [RCB -III] - pt completed now pre op ddAC/taxane portion, last with Abraxane with expected grade I AEs and d/w her the path high risk findings from her MRM tumor path as above. D/w her NCCN guidelines and also all input obtained from the 09/22/24 2nd opinion at (Dr Beata Kebede consult) for 25 mins. Will get restaging PET/CT in early NOVEMBER, per insurance approval guidelines. Taxane myalgias/chronic pain syndrome - much improved, continue expectant follow up and should improve over time, no suspicion for underlying connective tissue disorder. Anti tumor tx: we spent over 25 mins d/w compliance with adjuvant endocrine tx and CDK4/6 inhibitor; importance of Arimidex 1mg po dialy x 10 yrs and Verzenio cell cycle inhibitor and GI and hem toxicity d/w her - stay at Verzenio 50mg po bid and titrate up to GI tolerance month by month for a total of 24 mo planned to CDK4/6 inhibitor concurrent with AI Hx pituitary tumor, migraines - seen by outside facility Neurosurgeon (Dr Benoit Duke at [facility]) and no need for surgical resection now, surveillance plan defined in his note of 02/24/24 noted Chemo induced anemia - as expected, resolving and cont 1 tab MVI po daily Venous access: Port in place - continues to function today, PORT care d/w her Cancer susceptibility - seen by cancer genetics, negative results Major depression, chroic - met pastoral care, SW and confirm no self harm plans for now and is 100%complaint to anti breast ca tx, will start Cymbalta 30mg po daily and stat referral to Psych MD Infection Screen - Negative. High Complexity Visit - All questions were answered over 38 mins today Disposition - Return in about 4 weeks (around 01/06/2025) for NIVIA OV, LAB APPT, CALL FOR SYMPTOMS, (CBC, CMP, B12, FOLIC ACID, IRON). Please call if any questions about Mrs Cole's care. Tacho Echavarria MD Hematology and Medical Oncology [facility] [phone] *This note was dictated using voice recognition technology and may contain unintended typographicalerrors. I spent 43 minutes in the total care of the patient, including reviewing data, patient assessment, education, counseling, coordinating care, and medical record keeping (+4 mins). Additional 15 min for d/w ENRIQUE ashton and coordinating Psych MD clinic visit documented in this encounter Plan of Treatment Upcoming Encounters Date Type Department Care Team (Late st Contact Info) Description 02/02/2025 11:20 AM EDT Telemedicine [facility] [address] [facility] [address] [place], [place] [id number] Samm Ledesma APRN [address] [facility] [address] [place] [address] 02/04/2025 11:00 AM EDT Appointment [facility] [place] [place] [address] Tacho Echavarria MD [address] [place] [address] Naya García PA-C [address] [place] [address] [address] [place] [address] 02/04/2025 2:00 PM EDT Appointment [place] [address] Tacho Echavarria MD [address] [place] [address] 02/04/2025 2:20 PM EDT Appointment [facility] [place], [place] [id number] Tacho Echavarria MD [address] [place] [address] 02/10/2025 10:30 AM EDT Office Visit [facility] [address] [address] [address] [place] [address] Sin Tran MD [facility] [place] [address] 03/02/2025 11:40 AM EDT Office [place] [facility] [address] [place] [address] [place] [address] [place] [address] 03/02/2025 12:45 PM EDT Procedure visit [facility] [address] [place], [place] [id number] Samm Ledesma, BLOWER FEEDER DYED RAW STOCK [address] [place] [address] 04/29/2025 9:15 AM EDT Appointment [facility] [place] [address] Batool Celis MD [address] [place] [address] [facility] [place], [place] [id number] documented as of this encounter Goals Goal Patient Goal Type Associated Problems Recent Progress Patient-Stated? Author Blood Pressure < 140/90 Blood Pressure 129/95(01/15 2:00 PM EDT) No Chetna Cedeno MD Breast [facility] Breast Health On track(2024 12:01 PM [...] as of this encounter Visit Diagnoses Diagnosis 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)- Primary Chemotherapy-induced nausea Nausea alone Anxiety about treatment Acquired lymphedema Other lymphedema Encounter for monitoring aromatase inhibitor therapy Encounter for therapeutic drug monitoring documented in this encounter Additional Health Concerns Assessment Noted Time PHQ-9 Depression Total Score: 17 024 8:39 AM EST PHQ-2 Depression Total Score: 5 07/07/20 24 8:39 AM EST documented as of this encounter Care Teams Water Use Inspector Relationship Specialty [place] [address] [place] [id number] PCP - General 06/21/10 Arlyn Schimdt MD [address] [place] [address] Consulting Physician Internal Medicine-Endocrinology , Diabetes & Metabolism 11/28/20 Tacho Echavarria MD 1 [place] [address] Internal Medicine-Medical Oncology 11/12/23 Matt Ulrich MD 1 [place], [place] [id number] Surgery-Surgical Oncology 12/04/23 Eze Brock Pastoral Care 12/13/23 Cheryl Nair, RN Oncology Nurse Navigator 03/25/2412/13 Annette Walker MSW Sole Rounding Machine Operator 05/13/24 Batool Celis MD 1 [facility] [place], [place] [id number] Radiation Oncologist Radiology-Radiation Oncology 06/08/24 documented as of this encounter
--- OUTSIDE RECORDS SUMMARY | 2024-12-14 11:09 | XMS_ITS | Encounter Summary ---
Author Organization [place] [address] Care Team Providers Care Province Archivist Name Role Phone Chetna Cedeno MD Primary Care Provider [phone] Arlyn Schmidt MD Unavailable [phone] Tacho Echavarria MD Unavailable [phone] Matt Ulrich MD Unavailable [phone] Eze Brock Unavailable Annette Walker Unavailable [phone] Batool Celis MD Unavailable [phone] Reason for Visit * Physical Therapy (Routine) - Closed Specialty Diagnoses / Procedures Referred By Contac t Referred To Contact Physical Therapy Diagnoses Invasive ductal carcinoma of breast, female, right (HCC) Acquired lymphedema Matt Ulrich MD [address] [place] [address] Phone: tel: fax: Kylah Lawler PT Referral ID Status Reason Start Date Expiration Date V isits Requested Visits Authorized [id number] Closed Specialty Services Required 09/04/2024 01/18/2025 1 20 Encounter Details Date Type Department Care Team (Latest Contact Info) Description 12/14/2024 11:09 AM EDT - 12/14/2024 11:59 PM EDT Hospital Encounter [facility] Physical Therapy [address] [place] [address] Kylah Lawler, PT Discharge Disposition: Home or [...] from your doctor or pharmacy? Never 11/07/2023 [facility] Utilities Answer Date Recorded In the [...] often do you attend chur ch or mosque services? 1 to 4 times per year 11/07/2023 Do you belong to any clubs o r organizations such as jain groups, unions, fraternal or athletic groups, or [...] Date Recorded PHQ-2 Total Score 5 07/07/2024 [facility] [place] of Occupat ional Health - Occupational Stress [...] any time in the past 12 m [facility], were you homeless or living in a long-term (including now)? No 11/07/2023 [facility] IP Transportation Answer D ate [...] 4 fluticasone propionate (FLONASE) 50 mcg/actuation Nasl [place], Suspension 1 [place] by Nasal route daily. 1 Each 11 [...] Cole : 1965 Visit # / Insurance: ([employer] ELI EV, 20 VISITS, PC [id number], ANTHEM IS SHOWING NOT ELIGIBLE AND [employer] IS SHOWING ANTHEM PRIMARY. PATIENT NEEDS TO GET THIS RESOLVED, [employer] Auth [id number] 12 Visits 09/25/24-10/25/24) [employer] Auth [id number] Date Ext 09/25/24-11/24/24 [employer] Auth [id number] PT Visits 11/19 - 12/19) Onset Date: 08/08/24 Diagnosis: Right JORDAN & UE & Chest Lymphedema Initial Eval Date: 09/25/24 Precautions: Hx CA Follow up: Mojgan, 01/26/25 Medication changes: None Reassessment Date: 12/19/24 FOTO Date: 12/19/24 Time in/Out: 1130/1229 Pain Scale: 7/10 right superior lateral chest area Subjective: Pt states that she has moved to [facility] - takes about an hour [...] AM EDT Telemedicine [facility] [address] [place] [address] Samm Ledesma, STATIC BALANCER [address] [facility] [address] [place] [address] 02/04/2025 11:00 AM EDT Appointment [facility] Women's Wellness [facility] [place] [address] Tacho Echavarria MD 1 [place] [address] Naya García PA-C [address] [place] [address] [address] [place] [address] 02/04/2025 2:00 PM EDT Appointment [place] [place] [address] Tacho Echavarria MD [address] [place] [address] 02/04/2025 2:20 PM EDT Appointment [facility] [place] [address] Tacho Echavarria MD [address] [place] [address] 02/10/2025 10:30 AM EDT Office Visit [address] [place] [address] Sin Tran MD [address] [place] [address] 03/02/2025 11:40 AM EDT Office Visit [facility] [address] [place] [address] [place] [address] [place] [address] 03/02/2025 12:45 PM EDT Procedure visit [facility] [address] [place], [place] [id number] Samm Ledesma, STATIC BALANCER [address] [place] [address] 04/29/2025 9:15 AM EDT Appointment [facility] [place] [address] Batool Celis MD [address] [place] [address] [place] [address] documented as of this encounter Goals Goal Patient Goal Type Associated Problems Recent Progress Patient-Stated? Author Blood Pressure < 140/90 Blood Pressure 129/95(01/15 2:00 PM EDT) No Chetna Cedeno MD Breast [facility] Breast [facility] On track(2024 12:01 PM EST) No Jasmin Porter, RAUL Note: Patient acknowledges understanding of new diagnosis, plan of care, available resources and how to contact Nurse Navigator with any future questions or concerns. [facility] Breast [facility] No Jasmin Porter, RN Note: Patient will be compliant with [...] documented as of this encounter Care Teams Province Archivist Relationship Specialty Start [place] [address] [place] [address] PCP - General 06/21/10 Arlyn Schmidt MD [address] [place] [address] Consulting Physician Internal Medicine-Endocrinology, Diabetes & Metabolism 11/28/20 Tacho Echavarria MD 1 [place] [address] Internal Medicine-Medical Oncology 11/12/23 Matt Ulrich MD 1 [place] [address] Surgery-Surgical Oncology 12/04/23 Eze Brock Pastoral Care 12/13/23 Annette Walker, BUILDING MOVER Medical Billing Instructor 05/13/24 Batool Celis MD 1 [facility] [place] [address] Radiation Oncologist Radiology-Radiation Oncology 06/08/24 documented as of this encounter
--- OUTSIDE RECORDS SUMMARY | 2025-01-02 16:26 | XMS_ITS | Encounter Summary ---
Author Organization [facility] P Address [facility] [place] [address] Phone Care Team Providers Care Environmental Scientist Name Role Phone Chetna Cedeno MD Primary Care Provider [phone] Reason for Visit * Reason Comments Heat Exposure Patient arrives via EMS from an event outside, states she was in [facility] and felt lightheaded, went to a tent to get some water and moved inside due to heat exposure, currently undergoing chemo for breast cancer, no LOC, endorses lightheadedness still however I feel a little better now , arrives with wet cloth to forehead and ice packs to back Encounter Details Date Type Department Care Team (Late st Contact Info) Description 01/02/2025 4:26 PM EDT - 01/02/2025 7:27 PM EDT Emergency [facility] Emergency Department [address] [place] [id number] [place] [address] [place] [address] Heat exhaustion, unspecified, initial encounter [T67.5XXA] Discharge Disposition: Home or Self Care Social History Tobacco Use Types Packs/Day Years Used Date Smoking Tobacco: Never Alcohol Use Standard Drinks/Week Comments No 0 (1 standard drink = 0.6 oz pur e alcohol) Comments No Sex and Gender Information Value Date Recorded Sex Assigned at Not on file Legal Sex Female 8:43 AM EDT Gender Identity Not on file Sexual Orientation Not on file documented as of this encounter Last Filed Vital Signs Vital Sign Reading Time Taken Comments Blood Pressure 110/73 01/02/2025 7:07 PM EDT Pulse 76 01/02/2025 7:07 PM EDT Temperature 36.6 C (97.9 F) 01/02/2025 4:38 PM EDT Respiratory Rate 23 01/02/2025 7:07 PM EDT Oxygen Saturation 100% 01/02/2025 7:07 PM EDT Inhaled Oxygen Concentration - - Weight 83.5 kg (184 lb) 01/02/2025 4:38 PM EDT Height 160 cm (5' 3 ) 01/02/2025 4:38 PM EDT Body Mass Index 32.59 01/02/2025 4:38 PM EDT documented in this encounter Discharge Instructions * Attachments The following attachments cannot be sent through Care Everywhere. * POTASSIUM CONTENT OF FOODS (SLOVENIAN) documented in this encounter Medications at Time of Discharge ZOLOFT 100 MG OR TABS 1 TABLET DAILY 30 0 ZOLOFT 50 MG OR TABS 1 TABLET DAILY 30 0 documented as of this encounter Progress Notes * Jin Barahona MD - 01/02/2025 7:27 PM EDT CURRENT STATUS IS EMERGENCY . : Any questions regarding PATIENT CLASS/STATUS should be directed to the Care Management Departments: [facility] [phone] or [facility] [phone] or [facility] [phone]. documented in this encounter ED Notes * Dallin Espinoza MD - 01/02/2025 4:48 PM EDT Images from the original note were not included. [facility] EMERGENCY DEPARTMENT ED Encounter Arrival Date: 01/02/251624 Meri Cole : [address] [place] [address] CSN: [id number] GIO: [id number] EMERGENCY DEPARTMENT - GENERAL NOTE CHIEF COMPLAINT Chief Complaint Patient presents with Heat Exposure Patient arrives via EMS from an event outside, states she was in [facility] and felt lightheaded,went to a tent to get some water and moved inside due to heat exposure, currently undergoing chemo for breast cancer, no LOC, endorses lightheadedness still however I feel a little better now , arrives with wet cloth to forehead and ice packs to back HPI Meri Cole is a 59 year old female who presents with probable heat exposure. She states she was in [place] and was felt lightheaded went to a tent to get some water they moved her inside. She isundergoing oral chemotherapy for breast cancer. Denies vomiting she is always nauseated. Denies chest pain or shortness of breath feeling better currently. PAST MEDICAL HISTORY No past medical history on file. SURGICAL HISTORY No past surgical history on file. CURRENT MEDICATIONS Prior to Admission medications Medication Sig Start Date End Date Taking? Authorizing Provider ZOLOFT 100 MG OR TABS 1 TABLET DAILY ZOLOFT 50 MG OR TABS 1 TABLET DAILY ALLERGIES Allergies Allergen Reactions Amoxicillin Hives Cefazolin Hives and Nausea And Vomiting Hydrocodone Hives Morphine And Related Shortness of Breath Tree Nuts (Food) Shortness of Breath and Swelling Hydromorphone Rash Lactase Diarrhea Methocarbamol Swelling Silver Itch and Rash Sumatriptan Swelling Tape Adhesive Rash Varicella Zoster Immune Globulin Other (See Comments) FAMILY HISTORY Family History Problem Relation Age of Onset Diabetes Brother Diabetes Son SOCIAL HISTORY Social History Socioeconomic History Marital status: Tobacco Use Smoking status: Never Substance and Sexual Activity Alcohol use: No Drug use: No Social Drivers of Health Financial Resource Strain: Low Risk (07/07/2024) Received from [facility] Overall Financial Resource Strain (CARDIA) Difficulty of Paying Living Expenses: Not very hard Food Insecurity: No Food Insecurity (07/07/2024) Received from [facility] Hunger Vital Sign Worried About Running Out of Food in the Last Year: Never true Ran Out of Food in the Last Year: Never true Transportation Needs: No Transportation Needs (07/07/2024) Received from [facility] IP Transportation In the past 12 months, has lack of reliable transportation kept you from medical appointments, meetings, work or from getting things needed for daily living?: No Physical Activity: Insufficiently Active (07/07/2024) Received from [facility] Exercise Vital Sign Days of Exercise per Week: 3 days Minutes of Exercise per Session: 40 min Stress: Stress Concern Present (07/07/2024) Received from [facility] [place] [employer] - Occupational Stress Questionnaire Feeling of Stress : Rather much Social Connections: Socially Isolated (11/07/2023) Received from [facility] Social Connection and Isolation Panel [NHANES] Frequency of Communication with Friends and Family: Once a week Frequency of Social Gatherings with Friends and Family: Once a week Attends [employer] Services: 1 to 4 times per year Active Member of Clubs or Organizations: No Attends Club or Organization Meetings: Never Marital Status: Never Housing Stability: High Risk (11/07/2023) Received from [facility] Housing Stability Vital Sign Unable to Pay for Housing in the Last Year: Yes Homeless in the Last Year: No REVIEW OF SYSTEMS Constitutional: Negative for chills or fever HENT: Negative for sore throat. Eyes: Negative for visual disturbance Respiratory: Negative for shortness of breath. Cardiovascular: Negative for palpitations. Gastrointestinal: Negative for abdominal pain Genitourinary: Negative for dysuria Musculoskeletal: Negative for back pain. Skin: Negative for rash. Neurological: Negative for focal weakness Psychiatric/Behavioral: Negative for depression All systems negative except as marked. PHYSICAL EXAM VITAL SIGNS: BP 129/79 (Patient Position: Semi-Fowlers) Pulse 82 Temp 97.9 ??F (36.6 ??C) Resp 24 Ht 63 (160 cm) Wt 83.5 kg (184 lb) SpO2 100% BMI 32.59 kg/m?? Constitutional: Cooperative sweating but no acute distress HENT: Normocephalic, Atraumatic, Bilateral external ears normal, Oropharynx moist, No oral exudates, Nose normal. Neck- Normal range of motion, No tenderness, Supple, No stridor. Eyes: PERRL, EOMI, Conjunctiva normal, No discharge. Respiratory: Normal breath sounds, No respiratory distress, No wheezing, No chest tenderness. Cardiovascular: Normal heart rate, Normal rhythm, No murmurs, No rubs, No gallops. GI: Bowel sounds normal, Soft, No tenderness, No masses, No pulsatile masses. : External genitalia appear normal, No masses or lesions. No discharge. No CVA tenderness. Musculoskeletal: Intact distal pulses, No edema, No tenderness, No cyanosis, No clubbing. Good range of motion in all major joints. No tenderness to palpation or major deformities noted. Back- No tenderness. Integument: Warm, Dry, No erythema, No rash. Lymphatic: No lymphadenopathy noted. Neurologic: Alert & oriented x 3, , No focal deficits noted. Psychiatric: Affect normal, Judgment normal, Mood normal. EKG Heart rate is [address]-T wave changes Independently interpreted by Dallin Espinoza MD LABORATORY Recent Results (from the past 24 hours) ECG 12 lead Collection Time: 01/02/25 4:37 PM Result Value Ref Range HEART RATE 72 bpm RR INTERVAL 840 ms ATRIAL RATE 71 ms P-R Interval 170 ms P Duration 116 ms P HORIZONTAL 41 deg P FRONT AXIS 16 deg Q Onset 501 ms QRSD Interval 102 ms QT INTERVAL 392 ms QTCB 428 ms QTcF 417 ms QRS Horizontal [place] -19 deg QRS AXIS 16 deg I-40 Horizontal [place] 46 deg I-40 FRONT AXIS -17 deg T-40 Horizontal [place] -50 deg T-40 Front [place] 51 deg T Horizontal [place] 52 deg T WAVE AXIS 16 deg S-T Horizontal [place] 60 deg S-T Front [place] 24 deg ECG IMPRESSION - BORDERLINE ECG - ECG IMPRESSION SR-Sinus rhythm-normal P axis, V-rate 50-99 ECG IMPRESSION LVHVP-Probable left ventricular hypertrophy-multiple LVH criteria ECGGUID [id number] CBC w/ Diff Collection Time: 01/02/25 5:13 PM Result Value Ref Range WBC 7.1 3.6 - 10.5 THOU/mcL RBC 3.75 (L) 3.80 - 5.20 MIL/mcL HEMOGLOBIN 11.2 (L) 12.0 - 15.2 g/dL HEMATOCRIT 33.6 (L) 36 - 46 % MCV 89.6 82 - 97 fL MCH 30.0 27 - 33 pg MCHC 33.5 32 - 36 g/dL RDW 16.0 12.3 - 17.0 % PLATELET 206 140 - 375 THOU/mcL MPV 6.9 (L) 7.0 - 11.5 fL ABS. NEUTROPHIL 3.60 1.80 - 7.70 THOU/mcL ABS LYMPHS 3.00 1.00 - 4.00 THOU/mcL ABS MONOS 0.30 0.20 - 0.90 THOU/mcL ABS EOS 0.10 0.03 - 0.45 THOU/mcL ABS BASOS 0.10 0.00 - 0.20 THOU/mcL SEGS 51 % LYMPHOCYTES 43 % MONOCYTES 4 % EOSINOPHIL 1 % BASOPHILS 1 % BAMP (Na,K,Cl,CO2,Glu,BUN,Creat,Ca) Collection Time: 01/02/25 5:13 PM Result Value Ref Range BLD UREA NITROGEN 16 8 - 26 mg/dL SODIUM 140 135 - 145 mmol/L POTASSIUM 3.2 (L) 3.6 - 5.1 mmol/L CHLORIDE 107 98 - 111 mmol/L CO2 20 (L) 21 - 31 mmol/L GLUCOSE, RANDOM 89 70 - 99 mg/dL CREATININE 1.06 0.60 - 1.20 mg/dL ANION GAP 13 4 - 16 mmol/L CALCIUM 9.0 8.5 - 10.4 mg/dL ESTIMATED GFR 61 >59 mL/min/1.73 m2 RADIOLOGY No orders to display ED COURSE & MEDICAL DECISION MAKING Initial Impression: Meri Cole is a 59 year oldfemale with chief concern of Chief Complaint Patient presents with Heat Exposure Patient arrives via EMS from an event outside, states she was in [facility] and felt lightheaded,went to a tent to get some water and moved inside due to heat exposure, currently undergoing chemo for breast cancer, no LOC, endorses lightheadedness still however I feel a little better now , arrives with wet cloth to forehead and ice packs to back , External Records: External records reviewed and show: Reviewed office visit on 11/22/2024 for migraine headache Work up and therapy ordered during this encounter: Pertinent Labs & Imaging studies reviewed. (See EDCourse for details) The patient was given the following medication in the Emergency department: Medication Administration from 01/02/2025 1625 to 01/02/2025 1848 Date/Time Order Dose Route Action Action by Comments 01/02/2025 1718 EDT sodium chloride 0.9% infusion 150 mL/hr Intravenous New Bag Rylie Darby -- 01/02/2025 1842 EDT sodium chloride 0.9% infusion 0 mL/hr Intravenous Completed Rylie Darby -- 01/02/2025 1837 EDT potassium chloride (KLOR-CON, K-TAB) CR tablet 40 mEq 40 mEq Oral Given Rylie Darby -- Vitals: 01/02/25 1720 01/02/25 1740 01/02/25 1806 01/02/25 1835 BP: 123/69 129/85 129/79 Patient Position: Semi-Fowlers Pulse: 75 73 67 82 Resp: 13 22 14 24 Temp: SpO2: 100% 100% 100% Weight: Height: Patients ED Course: ED Course as of 01/02/25 1848 Sat Jan 02, 2025 1647 Presents with concerns for heat exposure. She was out at a festival out of the sun in the heat. Branch dizzy lightheaded. Does feel slightly better after being brought in on a cooling area and hadcool packs placed. He denies any chest pain or shortness of breath. Will get some baseline labs reassess. 1835 Patient is feeling much better. Her potassium was a bit low at 3.2 I do not Nestl?? think thisis because of her symptoms we will go ahead and treat her with oral dose I do not think she needs to be on long-term potassium will recommend supplementing her diet in the interim following with her primary care provider The Following Consultants/Discussion were done during this ED Encounter: Consults: None The patient has the following comorbidity that contribute to the increase risk of complications with the present diagnosis and treatment. I have discussed with the patient the risks and importance ofmonitoring. Patient understands and agrees. Hypertension Patient Final Diagnosis and Disposition: Social determinants of health affecting treatment: None Patient was given the signs and symptoms of worsening condition and told to return if they occurred. Patient understands the plan and management and all questions were answered. Patient will follow up with her primary care physician in the next 2-3 days. Patient was instructed on Culture results and preliminary radiology reads and the she would be contacted if a variance or positive test is obtained. The nursing note was reviewed, agreed and appreciated. Final Diagnosis: 1. Heat exhaustion, initial encounter The patient was given the following medications to go home with: Medication List ASK your doctor about these medications * Zoloft 100 MG Tabs Generic drug: sertraline 1 TABLET DAILY * Zoloft 50 MG Tabs Generic drug: sertraline 1 TABLET DAILY * This list has 2 medication(s) that are the same as other medications prescribed for you. Read thedirections carefully, and ask your doctor or other care provider to review them with you. Follow-up Information Follow up With Specialties Details Why Contact Info Chetna Cedeno MD Family Medicine As needed [facility] [place] [address] [place] [address] Please note that some or all of this record was generated using voice recognition software. If there are any questions about the content of this document, please contact the author as some errors in supervisor dehydrogenation may have occurred. Dallin Espinoza MD 01/02/25 1837 Dallin Espinoza MD 01/02/25 1848 * Rylie Darby Registered Nurse - 01/02/2025 4:30 PM EDT Triage Note Meri Cole presents to [facility] with complaint(s) of Heat Exposure (Patient arrives via EMS froman event outside, states she was in [facility] and felt lightheaded, went to a tent to get some water and moved inside due to heat exposure, currently undergoing chemo for breast cancer, no LOC, endorses lightheadedness still however I feel a little better now , arrives with wet cloth to forehead and ice packs to back ) * Eze Mann Registered Nurse - 01/02/2025 4:26 PM EDT Bed: 24 Expected date: Expected time: Means of arrival: Comments: Ngoc 69yo overheated on chemo documented in this encounter Plan of Treatment Not on file documented as of this encounter Procedures Procedure Name Priority Date/Time Associated Diagnosis Comments BAMP (NA,K,CL,CO2,GLU,BUN, CREAT,CA) STAT 01/02/2025 5:13 PM EDT CBC WITH DIFFERENTIAL STAT 01/02/2025 5:13 PM EDT ECG 12-LEAD STAT 01/02/2025 4:37 PM EDT documented in this encounter Results * (ABNORMAL) BAMP (Na,K,Cl,CO2,Glu,BUN,Creat,Ca) (01/02/2025 5:13 PM EDT) [facility] BLD UREA NITROGEN 16 8 - 26 mg/dL [facility]MISTRY [facility] SODIUM 140 135 - 145 mmol/L [facility]MI[facility] POTASSIUM 3.2(L) 3.6 - 5.1 mmol/L [facility] CHLORIDE 107 98 - 111 mmol/L [facility] CO2 20(L) 21 - 31 mmol/L [facility] GLUCOSE, RANDOM 89 70 - 99 mg/dL [facility] CREATININE 1.06 0.60 - 1.20 mg/dL [facility] ANION GAP 13 4 - 16 mmol/L [facility] CALCIUM 9.0 8.5 - 10.4 mg/dL [facility] ESTIMATED GFR 61 >59 mL/min/1.7 3 m2 [facility] Comment: Estimated GFR was calculated using the CKD-EPI cr (2020) equation refit without race. The equation is recommended by the National Kid[employer] - [place] [employer] of Nephrology Task Force. Tested at [address] [address] Whole Blood 01/02/2025 5:13 PM EDT 01/02/2025 5:25 PM EDT Dallin Espinoza MD LAB BLOOD ORDERABLES Final Result [facility] [address] [place] [address] [address] * (ABNORMAL) CBC w/ Diff (01/02/2025 5:13 PM EDT) [facility] WBC 7.1 3.6 - 10.5 THOU/mcL CHEMISTRY [facility] RBC 3.75(L) 3.80 - 5.20 MIL/mcL [facility] HEMOGLOBIN 11.2(L) 12.0 - 15.2 g/dL [facility] HEMATOCRIT 33.6(L) 36 - 46 % [facility] MCV 89.6 82 - 97 fL [facility] MCH 30.0 27 - 33 pg CHEMI[facility] MCHC 33.5 32 - 36 g/dL [facility] RDW 16.0 12.3 - 17.0 % [facility] PLATELET 206 140 - 375 THOU/mcL [facility] MPV 6.9(L) 7.0 - 11.5 fL [facility] ABS. NEUTROPHIL 3.60 1.80 - 7.70 THOU/mcL [facility] ABS LYMPHS 3.00 1.00 - 4.00 THOU/mcL [facility] ABS MONOS 0.30 0.20 - 0.90 THOU/mcL [facility] ABS EOS 0.10 0.03 - 0.45 THOU/mcL [facility]MI[facility] ABS BASOS 0.10 0.00 - 0.20 THOU/mcL [facility] SEGS 51 % [facility] LYMPHOCYTES 43 % CHEMISTR Y NORTH MONOCYTES 4 % [facility] EOSINOPHIL 1 % [facility] BASOPHILS 1 % CHEMISTRY [facility] Comment:Tested at [facility] [id number] [place] [id number] Whole Blood 01/02/2025 5:13 PM EDT 01/02/2025 5:25 PM EDT Dallin Espinoaz MD LAB BLOOD ORDERABLES Final Result [facility] [address] [place] [address] [address] * ECG 12 lead (01/02/2025 4:37 PM EDT) HEART RATE 72 bpm TH TRACEMASTER RR INTERVAL 840 ms TH TRACEMASTER ATRIAL RATE 71 ms TH TRACEMASTER P-R Interval 170 ms TH TRACEMASTER P Duration 116 ms TH TRACEMASTER P HORIZONTAL 41 deg TH TRACEMASTER P FRONT AXIS 16 deg TH TRACEMASTER Q Onset 501 ms TH TRACEMASTER QRSD Interval 102 ms TH TRACEMASTER QT INTERVAL 392 ms TH TRACEMASTER QTCB 428 ms TH TRACEMASTER QTcF 417 ms TH TRACEMASTER QRS Horizontal [place] -19 deg TH TRACEMASTER QRS AXIS 16 deg TH TRACEMASTER I-40 Horizontal [place] 46 deg TH TRACEMASTER I-40 FRONT AXIS -17 deg TH TRACEMASTER T-40 Horizontal [place] -50 deg TH TRACEMASTER T-40 Front [place] 51 deg TH TRACEMASTER T Horizontal [place] 52 deg TH TRACEMASTER T WAVE AXIS 16 deg TH TRACEMASTER S-T Horizontal [place] 60 deg TH TRACEMASTER S-T Front [place] 24 deg TH TRACEMASTER ECG IMPRESSION - BORDERLINE ECG - TH TRACEMASTER ECG IMPRESSION SR-Sinus rhythm-normal P axis, V-rate 50-99 TH TRACEMASTER ECG IMPRESSION LVHVP-Probable left ventricular hypertrophy-mul tiple LVH criteria TH TRACEMASTER ECGGUID [id number] TH TRACEMASTER 01/02/2025 4:37 PM EDT Dallin Espinoza MD ECG ORDERABLES Final Resu lt TH TRACEMASTER documented in this encounter Visit Diagnoses Diagnosis Heat exhaustion, initial encounter- Primary documented in this encounter Administered Medications Inactive Administered Medications - up to 3 most recent administrations Medication Order MAR Action Action Date Dose Rate Site potassium chloride (KLOR-CON, K-TAB) CR tablet 40 mEq 40 mEq, Oral, Once, On 01/02/25 at 1930, For 1 dose, Do not break, crush, or chew. Given 01/02/2025 6:37 PM EDT 40 mEq rOPINIRole (REQUIP) tablet 0.25 mg 0.25 mg, Oral, Once, On 01/02/25 at 1900, For 1 dose Given 01/02/2025 7:08 PM EDT 0.25 mg sodium chloride 0.9% infusion 150 mL/hr, Intravenous, Continuous, Starting on 01/02/25 at 1800 New Bag 01/02/2025 5:18 PM EDT 150 mL/hr 150 mL/hr documented in this encounter Active and Recently Administered Medications Times are shown in EDT. Scheduled Medication Order 12/31/2024 01/01/2025 01/02/2025 potassium chloride (KLOR-CON, K-TAB) CR tablet 40 mEq (COMPLETED) 40 mEq, Oral, Once, On 01/02/25 at 1930, For 1 dose, Do not break, crush, or chew. 1837 (Given - Provid er: Rylie Darby, Registered Nurse) rOPINIRole (REQUIP) tablet 0.25 mg (COMPLETED) 0.25 mg, Oral, Once, On 01/02/25 at 1900, For 1 dose 1908 (Given - Provid er: Helen Westfall, Registered Nurse) Continuous Medication Order 12/31/2024 01/01/2025 01/02/2025 sodium chloride 0.9% infusion 150 mL/hr, Intravenous, Continuous, Starting on 01/02/25 at 1800 1718 (New Bag - Prov ider: Ramon Raymundo Nurse)1842 (Completed - Provider: Ramon Raymundo) documented in this encounter Care Teams Environmental Scientist Relationship Specialty Start Date End Date Chetna Cedeno MD [facility] [address] [place] [address] PCP - General Family Medicine 01/02/25 documented as of this encounter
--- OUTSIDE RECORDS SUMMARY | 2025-01-06 12:56 | XMS_ITS | Encounter Summary ---
Author Organization [place] [address] Care Team Providers Care School Principal Name Role Phone Chetna Cedeno MD Primary Care Provider [phone] Arlyn Schmidt MD Unavailable [phone] Tacho Echavarria MD Unavailable [phone] Matt Ulrich MD Unavailable [phone] Eze Brock Unavailable Annette Walker Unavailable [phone] Batool Celis MD Unavailable [phone] Encounter Details Date Type Department Care Team (Latest Contact Info) Description 01/06/2025 12:56 PM EDT - 01/06/2025 1:13 PM EDT Hospital Encounter [facility] [place], [place] [phone] Tacho Echavarria MD [address] [place] [address] [phone] Invasive ductal carcinoma of breast, female, right [...] from your doctor or pharmacy? Never 11/07/2023 [facility] Utilities Answer Date Recorded In [...] often do you attend chur ch or mandaen services? 1 to 4 times per year [...] Date Recorded PHQ-2 Total Score 5 07/07/2024 [facility] Occupat ional Health - Occupational Stress [...] any time in the past 12 m [facility], were you homeless or living in a nursing home (including now)? No 11/07/2023 [facility] IP Transportation Answer D [...] 4 fluticasone propionate (FLONASE) 50 mcg/actuation Nasl [place], Suspension 1 [place] by Nasal route daily. 1 Each 11 [...] NEUROLOGY HECTOR [address] [facility] [facility] [address] [place] [address] Samm Ledesma, FACTORY SUPERVISOR [address] [address] [place] [address] 02/04/2025 11:00 AM EDT Appointment [facility] Women's Wellness [facility] [place] [address] Tacho Echavarria MD 1 [place] [address] Naya García PA-C [address] [facility] [address] [place] [address] 02/04/2025 2:00 PM EDT Appointment [place] [address] Tacho Echavarria MD [address] [place] [address] 02/04/2025 2:20 PM EDT Appointment [place] [address] Tacho Echavarria MD 1 [place] [address] 02/10/2025 10:30 AM EDT Office Visit [address] [place] [address] Sin Tran MD [address] [place] [address] 03/02/2025 11:40 AM EDT Office Visit [facility] [address] [place] [address] [place] [address] [place] [address] 03/02/2025 12:45 PM EDT Procedure visit [facility] NEUROLOG[facility]ECTOR [address] [facility] [address] [place] [address] Samm Ledesma APRN [address] [facility] [address] [place] [address] 04/29/2025 9:15 AM EDT Appointment [facility] RAD ONC [place], [place] [phone] Batool Celis MD [address] [place] [address] CANCER CARE [place], [place] [id number] documented as of this encounter Goals Goal Patient Goal Type Associated Problems Recent Progress Patient-Stated? Author Blood Pressure < 140/90 Blood Pressure 129/95(01/15 2:00 PM EDT) No Chetna Cedeno MD Breast [facility] Health On track(2024 12:01 PM EST) No Jasmin Porter, RAUL Note: Patient acknowledges understanding of new diagnosis, plan of care, available resources and how to contact Nurse Navigator with any future questions or concerns. Breast [facility] No Jasmin Porter, RAUL Note: Patient will [...] documented as of this encounter Care Teams School Principal Relationship Specialty [place] [address] [place] [address] PCP - General 06/21/10 Arlyn Schmidt MD [address] [place] [address] Consulting Physician Internal Medicine-Endocrinology, Diabetes & Metabolism 11/28/20 Tacho Echavarria MD 1 [place] [address] Internal Medicine-Medical Oncology 11/12/23 Matt Ulrich MD 1 [place] [address] Surgery-Surgical Oncology 12/04/23 Eze Brock Pastoral Care 12/13/23 Annette Walker, ARACELI First Line Supervisor 05/13/24 Batool Celis MD 1 [facility] [place] [address] Radiation Oncologist Radiology-Radiation Oncology 06/08/24 documented as of this encounter
--- OUTSIDE RECORDS SUMMARY | 2025-01-06 13:14 | XMS_ITS | Encounter Summary ---
Author Organization [place] [address] Care Team Providers Care Dredge Boat Engineer Name Role Phone Chetna Cedeno MD Primary Care Provider [phone] Arlyn Schmidt MD Unavailable [phone] Tacho Echavarria MD Unavailable [phone] Matt Ulrich MD Unavailable [phone] Eze Brock Unavailable Annette Walker Unavailable [phone] Batool Celis MD Unavailable [phone] Reason for Visit * Reason Comments Follow-up Breast Cancer Encounter Details Date Type Department Care Team (Latest Contact Info) Description 01/06/2025 1:14 PM EDT - 01/06/2025 11:59 PM EDT Hospital Encounter [facility] [place] [address] Tacho Echavarria MD [address] [place] [address] [phone] Invasive ductal carcinoma of breast, female, right [...] from your doctor or pharmacy? Never 11/07/2023 [facility] Utilities Answer Date Recorded In the [...] often do you attend chur ch or buddhism services? 1 to 4 times per year 11/07/2023 Do you belong to any clubs o r organizations such as jainism groups, unions, fraternal or athletic groups, or [...] Date Recorded PHQ-2 Total Score 5 07/07/2024 [facility] of Occupat ional Health - Occupational Stress [...] any time in the past 12 m [facility], were you homeless or living in a intermediate (including now)? No 11/07/2023 [facility] IP Transportation Answer D ate Recorded [...] Author No 12/06/2022 2:08 PM EDT Macarena aMrion CCMA * Because of a physical, mental [...] 56 Tablet 4 01/13/2025 2:34 PM EDT abemaciclib (VERZENIO) 50 mg Oral [...] 4 fluticasone propionate (FLONASE) 50 mcg/actuation Nasl [place], Suspension 1 [place] by Nasal route daily. 1 Each 4 [...] were not included. Patient: El Cole CSN: [id number] Date of : 1965 Age: 59 y.o. Date of Service: 01/06/2025 HEMATOLOGY/ONCOLOGY FOLLOW UP VISIT Primary Ultimate Hoops Scoreboard Operator & Oncologist: Tacho Echavarria MD. Patient Care Team: Chetna Cedeno MD as PCP - General Arlyn Schmidt MD as Consulting Physician (Internal Medicine-Endocrinology, Diabetes & Metabolism) Tacho Echavarria MD (Internal Medicine-Medical Oncology) Matt Ulrich MD (Surgery-Surgical Oncology) Eze Brock as Pastoral Care Annette Walker MSW as School Vocational Educator Batool Celis MD as Radiation Oncologist (Radiology-Radiation Oncology) 2nd OPINION [facility] EVAL: , [place], [place]: Dr Beata Kebede: [phone] Next of Kin: Daughter Ruthy Man ([phone]) Patient Contact info: [phone] DIAGNOSIS HISTORY DATE OF INITIAL CONSULTATION: 11/14/23; outside 2nd opinion at on 09/23/2024 CURRENT TREATMENT BREAST CA: adjuvant Seaboard-E regimen: Arimidex 1mg po daily + dose [...] Invasive ductal carcinoma grade 3 ER 92% VT 55% HER2 Negative HER-2 by FISH NEGATIVE [...] to GI tolerance for 2 yr planned (Seaboard-E regimen) Stage Clinical Stage IIIB (cT3, cN3a(f), cM0, G3, ER+, VT+, HER2-) Pathologic Stage ypT3, ypN3a, G3, ER+, VT+, HER2- Right breast cancer with T3 tumor, [...] CalcPt Dosage Given to Date in Gy 10.40197249 Session Dosage Given in Gy 2.31874691 Reference Point ID LN Boost RP Dosage Given to Date in Gy 10 Session Dosage Given in Gy 1.57813654 Reference Point ID [id number] ISO Dosage Given to Date in Gy 40.01073664 Session Dosage Given in Gy 0.24430086 Plan ID BH Nd Boost Plan Name BH Nd Boost Fractions Treated to Date 5 [...] breast (HCC) 10/14/2023 Migraines MS (multiple sclerosis) ([facility]) Pituitary cyst Prediabetes PTSD (post-traumatic stress disorder) Sleep apnea no cpap Uterine prolapse 06/06/2011 PAST SURGICAL HISTORY Past Surgical History: Procedure Laterality Date APPENDECTOMY BREAST BIOPSY Right 10/25/2023 5:00 and 6:00 CHOLECYSTECTOMY GASTRIC BYPASS SURGERY N/A 05/01/2017 LAPAROSCOPIC SLEEVE GASTRECTOMY ; Surgeon: Marcus Perez MD; Location: [facility] MAIN OR; Service: General IR 2 [...] SACRAL SINGLE LVL 08/03/2022 Sin Tran MD [facility] SPINE CTR IMAGING IR PORT PLACEMENT EQUAL OR > 5 YEARS 11/29/2023 IR PORT PLACEMENT EQUAL OR > 5 YEARS 11/29/2023 Joselito Goodwin MD [facility] IR LUMBAR DISC SURGERY 09/11/2012 LUMBAR LAMINECTOMY & DISCECTOMY L4-5 LEFT ; Surgeon: Hetal Borden MD; MASTECTOMY Right 07/06/2024 Right modified radical mastectomy; Surgeon: Matt Ulrich MD; Location: [facility] MAIN OR; Service:General SPINE SURGERY N/A 01/04/2021 PAIN PUMP PERMANENT IMPLANT; Surgeon: Munir Hilton MD; Location: [facility] MAIN OR; Service: Pain Management THORACIC SPINE SURGERY N/A 02/24/2020 SPINAL CORD STIMULATOR IMPLANT; Surgeon: Munir Hilton MD; Location: [facility] OR; Service: Pain Management TONSILLECTOMY UPPER GASTROINTESTINAL ENDOSCOPY UPPER GASTROINTESTINAL ENDOSCOPY N/A 01/26/2015 ESOPHAGOGASTRODUODENOSCOPY with biopsy and davis dilation; Surgeon: Stone Cronin MD; Location: [facility] ENDOSCOPY; Service: Endoscopy FAMILY HISTORY [...] op ddAC/Taxane chemo for her high risk ER/VT positive large RIGHT BREAST Carcinoma. She has [...] having completed adjuvant Radiation, while on the BUFFALO- adjuvant therapy treatment approach. Update (01/06/2025): Ms [...] Device fluticasone propionate (FLONASE) 50 mcg/actuation Nasl [place], Suspension Inhalational Spacing Device (AEROCHAMBER MV) Misc [...] Gran% 0.2 % Lymph Percent 28.1 % Dane Percent 4.3 % Eos Percent 1.8 % Baso Percent 0.4 % Neut # 3.3 1.6 - 6.1 x10(3)/mcL IMMGRAN# 0.0 0.0 - 0.1 x10(3)/mcL Lymph # 1.4 1.2 - 3.9 x10(3)/mcL Dane # 0.2 (L) 0.3 - 0.9 x10(3)/mcL [...] G43.719-Chronic migraine without aura, intractable, without status [id number]. COMPARISON: Multiple priors with the latest MRI [...] Performing Provider Shaylee Roque???LOUIE Restrepo CRNA, RN Homebound Teacher Madelyn Sidhu RN Endoscopy Nurse Aliya Friedman [...] input obtained from the 09[facility] (Dr Beata Kebede consult). Recommended to continue [...] outside facility Neurosurgeon (Dr Benoit Duke at [facility]) and no need for surgical [...] Tacho Echavarria MD Hematology and Medical Oncology [facility] [phone] *This note was dictated using voice recognition [...] also performed on this calendar day: d/w Vendor Management Consultant about her care and symptom burden/depression documented in this encounter Plan of Treatment Upcoming Encounters Date Type Department Care Team (Late st Contact Info) Description 02/02/2025 11:20 AM EDT Telemedicine [facility] [address] [facility] [address] [place] [address] Samm Ledesma APRN [address] [facility] [address] [place], [place] [id number] 02/04/2025 11:00 AM EDT Appointment [facility] Women's Wellness [facility] [address] Tacho Echavarria MD [address] [place] [address] [phone] Naya García PA-C [address] [place] [address] [address] [place] [address] 02/04/2025 2:00 PM EDT Appointment [facility] [place], [place] [phone] Tacho Echavarria MD [address] [place] [address] [phone] 02/04/2025 2:20 PM EDT Appointment [facility] [place] [address] Tacho Echavarria MD [address] [place] [address] [phone] 02/10/2025 10:30 AM EDT Office Visit [facility] [place] [address] [facility] [address] [place] [address] Sin Tran MD [address] [facility] [place] [address] 03/02/2025 11:40 AM EDT Office [place] [facility] [place] [address] [place] [address] [place] [address] [place] [address] 03/02/2025 12:45 PM EDT Procedure visit [facility] [address] [place], [place] [phone] Samm Ledesma, WIRE STITCHER [address] [place], [place] [phone] 04/29/2025 9:15 AM EDT Appointment [facility] [place] [address] Batool Celis MD [address] [place] [address] [facility] C[address] [place], [place] [id number] documented as of this encounter Goals Goal [...] * MISCELLANEOUS LAB (01/06/2025 1:13 PM EDT) [facility] COMMENT [place] 01/07/2025 7:35 AM EDT [facility] Blood VENOUS STRUCTURE / Unknown Port / Unknown 01/06/2025 1:13 PM EDT 01/07/2025 7:31 AM EDT [facility] MD HEMATOLOGY ORDERABLES Final Result [facility] [address] [place] [id number] * IRON+TIBC (01/06/2025 1:13 PM EDT) Iron 78 30 - 160 mcg/dL 01/06/2025 [...] CHEMISTRY ORDERABLES Final Result Performing Organization Address [facility] Co de Phone Number PREFERRED LAB [facility], [facility] [address] [facility] , [place] [address] * VITAMIN B12/ FOLIC ACID (01/06/2025 1:13 PM EDT) Pathologist [facility] Vitamin B12 305 232 - 1,245 pg/mL 01/06/2025 2:55 PM EDT PREFERRED LAB [facility], [facility] Folate 15.80 >=4.80 ng/mL 01/06/2025 2:55 PM EDT [facility]REF[facility]ED [facility], [facility] Blood VENOUS STRUCTURE / Unknown Port / Unknown 01/06/2025 1:13 PM EDT 01/06/2025 1:17 PM EDT Narrative PREFERRED [facility], [facility] - 01/06/2025 2:55 PM EDT Ingestion of haroon doses of biotin (>5 mg/day) taken within 8 hours of drawing blood sample can interfere with this immunoassay test. us Tacho Echavarria MD CHEMISTRY ORDERABLES Final Result Performing Organization Address City/[facility] Co de Phone Number PREFERRED [facility], [facility] [address] [facility] , [place] [address] * (ABNORMAL) COMPREHENSIVE METABOLIC PANEL (01/06/2025 1:13 PM EDT) Sodium 140 136 - 145 mmol/L 01/06/2025 1:37 PM EDT [facility] Potassium 3.8 3.5 - 5.0 mmol/L 01/06/2025 1:37 PM EDT [facility] Chloride 108(H) 98 - 107 mmol/L 01/06/2025 1:37 PM EDT [facility] Total CO2 22 22 - 29 mmol/L 01/06/2025 1:37 PM EDT [facility] Anion Gap 10 7 - 16 mmol/L 01/06/2025 1:37 PM EDT [facility] Calcium 9.2 8.6 - 10.4 mg/dL 01/06/2025 1:37 PM EDT [facility] Glucose Lvl 121(H) 70 - 99 mg/dL 01/06/2025 1:37 PM EDT [facility] BUN 16 6 - 20 mg/dL 01/06/2025 1:37 PM EDT [facility] Creatinine 0.83 0.51 - 1.30 mg/dL 01/06/2025 1:37 PM EDT [facility] Albumin 4.0 3.5 - 5.2 gm/dL 01/06/2025 1:37 PM EDT [facility] Total Protein 6.6 6.4 - 8.3 gm/dL 01/06/2025 1:37 PM EDT [facility] Bili Total 0.4 0.2 - 1.3 mg/dL 01/06/2025 1:37 PM EDT [facility] ALT 9 <=41 U/L 01/06/2025 1:37 PM EDT [facility] AST 14 <=40 U/L 01/06/2025 1:37 PM EDT [facility] Alk Phos 127(H) 36 - 123 U/L 01/06/2025 1:37 PM EDT [facility] eGFR (CKD-EPIcr 2020) 82 >=60 mL/min/1.7 3 m2 01/06/2025 1:37 PM EDT [facility] Comment:Estimated GFR was ca lculated using the CKD-EPIcr (2020) equation refit without race. The equation is recommended by the National Kidney Foundation - [place] [employer] of Nephrology Task Force. Blood VENOUS STRUCTURE / Unknown Port / Unknown 01/06/2025 1:13 PM EDT 01/06/2025 1:17 PM EDT [facility] MD CHEMISTRY ORDERABLES Final Result [facility] [address] [place] [address] * (ABNORMAL) CBC WITH DIFF (01/06/2025 1:13 PM EDT) WBC 5.1 3.7 - 10.3 x10(3)/mc L 01/06/2025 1:22 PM EDT [facility] RBC 3.61(L) 3.90 - 5.20 x10(6)/mc L 01/06/2025 1:22 PM EDT [facility] Hgb 11.0(L) 11.2 - 15.7 g/dL 01/06/2025 1:22 PM EDT [facility] Hct 33.2(L) 34.0 - 45.0 % 01/06/2025 1:22 PM EDT [facility] MCV 92.0 80.0 - 100.0 fL 01/06/2025 1:22 PM EDT [facility] MCH 30.5 26.0 - 34.0 pg 01/06/2025 1:22 PM EDT [facility] MCHC 33.1 30.7 - 35.5 g/dL 01/06/2025 1:22 PM EDT [facility] RDW 14.5 <=14.9 % 01/06/2025 1:22 PM EDT [facility] Platelet 170 155 - 369 x10(3)/mc L 01/06/2025 1:22 PM EDT [facility] MPV 8.8 8.8 - 12.5 fL 01/06/2025 1:22 PM EDT [facility] Neut # Prelim 3.3 1.6 - 6.1 x10(3)/mc L 01/06/2025 1:22 PM EDT [facility] Comment:Preliminary automate d absolute neutrophil count. Value may change if manual differential is indicated. Neut Percent 65.2 % 01/06/2025 1:22 PM EDT [facility] Comment:Neutrophils equals s egs plus bands Imm Gran% 0.2 % 01/06/2025 1:22 PM EDT [facility] Comment:Automated count of m etamyelocytes, myelocytes and promyelocytes. Lymph Percent 28.1 % 01/06/2025 1:22 PM EDT [facility] Dane Percent 4.3 % 01/06/2025 1:22 PM EDT [facility] Eos Percent 1.8 % 01/06/2025 1:22 PM EDT [facility] Baso Percent 0.4 % 01/06/2025 1:22 PM EDT [facility] Neut # 3.3 1.6 - 6.1 x10(3)/mc L 01/06/2025 1:22 PM EDT [facility] Comment:Neutrophils equals s egs plus bands IMMGRAN# 0.0 0.0 - 0.1 x10(3)/mc L 01/06/2025 1:22 PM EDT [facility] Comment:Automated count of m etamyelocytes, myelocytes and promyelocytes. An absolute IG <0.1 is reported as 0.0. Lymph # 1.4 1.2 - 3.9 x10(3)/mc L 01/06/2025 1:22 PM EDT [facility] Dane # 0.2(L) 0.3 - 0.9 x10(3)/mc L 01/06/2025 1:22 PM EDT [facility] Eos# 0.1 0.0 - 0.5 x10(3)/mc L 01/06/2025 1:22 PM EDT [facility] Baso # 0.0 0.0 - 0.1 x10(3)/mc L 01/06/2025 1:22 PM EDT [facility] Blood VENOUS STRUCTURE / Unknown Port / Unknown 01/06/2025 1:13 PM EDT 01/06/2025 1:17 PM EDT us Tacho Echavarria MD HEMATOLOGY ORDERABLES Final Result Performing Organization Address City/[facility]/ZIP Co de Phone Number [facility] [address] [place] [phone] * MISCELLANEOUS LAB (01/06/2025 1:13 PM EDT) [facility] [place] 01/07/2025 7:34 AM EDT [facility] Blood VENOUS STRUCTURE / Unknown Port / Unknown 01/06/2025 1:13 PM EDT 01/07/2025 7:31 AM EDT us Tacho Echavarria MD HEMATOLOGY ORDERABLES Final Result Performing Organization Address City/[facility] Co de Phone Number [facility] [address] [place] [phone] documented in this encounter Visit Diagnoses Diagnosis [...] documented as of this encounter Care Teams Dredge Boat Engineer Relationship Specialty [place] [id number] [place] [phone] PCP - General 06/21/10 Arlyn Schmidt MD [address] [place], [place] [address] Consulting Physician Internal Medicine-Endocrinology, Diabetes & Metabolism 11/28/20 Tacho Echavarria MD [address] [place] [address] Internal Medicine-Medical Oncology 11/12/23 Matt Ulrich MD 1 [place] [address] Surgery-Surgical Oncology 12/04/23 Eze Brock Pastoral Care 12/13/23 Annette Walker, ARACELI School Vocational Educator 05/13/24 Batool Celis MD [address] [facility]CER [place], [place] [phone] Radiation Oncologist Radiology-Radiation Oncology 06/08/24 documented as of this encounter
--- OUTSIDE RECORDS SUMMARY | 2025-01-13 14:56 | XMS_ITS | Encounter Summary ---
Author Organization [place] [address] Care Team Providers Care Auditor Tax Name Role Phone Chetna Cedeno MD Primary Care Provider [phone] Arlyn Schmidt MD Unavailable [phone] Tacho Echavarria MD Unavailable [phone] Matt Ulrich MD Unavailable [phone] Eze Brock Unavailable Annette Wlaker Unavailable [phone] Batool Celis MD Unavailable [phone] Reason for Visit * Physical Therapy (Emergency) - Closed Specialty Diagnoses / Procedures Referred By Contac t Referred To Contact Physical Therapy Diagnoses 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) Chemotherapy follow-up examination Malignant neoplasm of right female breast, unspecified estrogen receptor status, unspecified site of breast (HCC) Port-A-Cath in place Tacho Echavarria MD 1 [place] [address] Phone: tel: fax: Shaunna Workman PT Referral ID Status Reason Start Date Expiration Date V isits Requested Visits Authorized [id number] Closed Specialty Services Required 10/08/2024 01/28/202507 31 Encounter Details Date Type Department Care Team (Latest Contact Info) Description 01/13/2025 2:56 PM EDT - 01/13/2025 11:59 PM EDT Hospital Encounter [facility] Physical Therapy [address] [place] [address] Shaunna Workman PT Discharge Disposition: Home or [...] doctor or pharmacy? Never 11/07/2023 [facility] Utilities Answer Date Recorded In the [...] often do you attend chur ch or judaism services? 1 to 4 times per year [...] Date Recorded PHQ-2 Total Score 5 07/07/2024 [facility] [place] of Occupat ional Health - Occupational Stress [...] any time in the past 12 m [facility], were you homeless or living in a detention (including now)? No 11/07/2023 [facility] IP Transportation Answer D ate Recorded [...] 4 fluticasone propionate (FLONASE) 50 mcg/actuation Nasl [place], Suspension 1 [place] by Nasal route daily. 1 Each 11 4 Inhalational Spacing Device (AEROCHAMBER MV) Misc Spacer 1 Each by [facility].(Non-Drug; Combo Route) route as needed. 1 Device [...] prior to port access. 30 g 1 01/19/20 documented as of this encounter Discharge Disposition [...] Port-A-Cath in place Restrictions/Precautions: has Katherine anali vicente that she is attending 01/02/25 and would like to be able to walk with no AD by then, [place] MS (but pt states that she was told this may have been a misdiagnosis), currently taking chemo pill, R mastectomy Jun 2024, radiation ended 09/25/24, chronic back issues with sciatica Physician: Jericho ESCOBAR Follow Up: 11/11/24 Evaluation Date: 10/30/24 Reassessment Due: 12/26/24 Primary Insurance: [facility]ICAID /[facility] [id number] [facility] Secondary Insurance: n/a Insurance Authorization: AMB REFERRAL TO PHYSICAL THERAPY Authorized (10/08/2024-01/28/2025) Visits Requested Visits Authorized Visits Completed Visits Scheduled -- Details Referral ID: [id number] Authorization Status Reason: Received Carrier Authorization Authorization Comments: -- Referred To: Shaunna Workman PT at [facility] PT Referred By: Tacho Echavarria MD at [facility] CANCER CTR MED ONC, [facility] Date: 10/08/2024 Referral Reasons: Specialty Services Required Referral Order: AMB REFERRAL TO PHYSICAL THERAPY Progress Reporting Period Dates (Medicare patients only):10/29/24 to 7/9/25 Time In/Out: 302/348 Timed Treatment Minutes: Gait [...] other week Needs Assistance: No Understood: Yes business technology architect // bars with unilat UE support [] high marches x10B [] hamstring curls x10B business technology architect // bars with B UE support [] [...] deficits. pt verbalized understanding of this again. business technology architect // bars with unilat UE support [] [...] arm swing during gait [] NMR education business technology architect // bars with no support with gait [...] up about 2 days ago. Access Code: [email or web address] URL: [email or web address] Date: 11/11/2024 Prepared by: Romana Bowman Exercises [...] be Independent with HEP to improve intermediate health and reduce risk for injury. indbut [...] increase from 727 feet with RW to 6495-6273 feet with LRAD to improve gait elisha [...] away. Treatments to consist of Therapeutic exercise 03796, Neuromuscular re-education 60352, Manual soft tissue and/or joint mobilization 35385, Patient education, Therapeutic activity 25651, and Gait training 45616. Electronically signed by: Signed: Shaunna Workman PT Date: 01/13/2025 documented in this encounter Plan of Treatment Upcoming Encounters Date Type Department Care Team (Late st Contact Info) Description 02/02/2025 11:20 AM EDT Telemedicine [facility] [address] [place] [address] Samm Ledesma, VISUAL TRAINING AIDE [address] [place] [address] 02/04/2025 11:00 AM EDT Appointment [facility] Women's Wellness [facility] [place] [address] Tacho Echavarria MD 1 [place] [address] Naya García PA-C [address] [place] [address] [address] [place] [address] 02/04/2025 2:00 PM EDT Appointment [place] [address] Tacho Echavarria MD [address] [place] [address] 02/04/2025 2:20 PM EDT Appointment [facility] [place] [address] Tacho Echavarria MD 1 [place] [address] 02/10/2025 10:30 AM EDT Office Visit [address] [place] [address] Sin Tran MD [address] [place] [address] 03/02/2025 11:40 AM EDT Office Visit [facility] [address] [place] [address] [place] [address] [place] [address] 03/02/2025 12:45 PM EDT Procedure visit [facility] [address] [place] [address] Samm Ledesma, VISUAL TRAINING AIDE [address] [place] [address] 04/29/2025 9:15 AM EDT Appointment [facility] RAD ONC [place], [place] [phone] Batool Celis MD [address] [place] [address] [facility] [place], [place] [id number] documented as of this encounter Goals Goal [...] documented as of this encounter Care Teams Auditor Tax Relationship Specialty [place] [address] [place] [address] PCP - General 06/21/10 Arlyn Schmidt MD [address] [place] [address] Consulting Physician Internal Medicine-Endocrinology, Diabetes & Metabolism 11/28/20 Tacho Echavarria MD 1 [place] [id number] Internal Medicine-Medical Oncology 11/12/23 Matt Ulrich MD 1 [place] [address] Surgery-Surgical Oncology 12/04/23 Eze Brock Pastoral Care 12/13/23 Annette Walker, ARACELI Teaching Young 05/13/24 Batool Celis MD 1 [facility] [place] [address] Radiation Oncologist Radiology-Radiation Oncology 06/08/24 documented as of this encounter
--- OUTSIDE RECORDS SUMMARY | 2025-01-15 11:55 | XMS_ITS | Encounter Summary ---
Author Organization [place] [address] Care Team Providers Care Local Truck Driver Name Role Phone Chetna Cedeno MD Primary Care Provider [phone] Arlyn Schmidt MD Unavailable [phone] Tacho Echavarria MD Unavailable [phone] Matt Ulrich MD Unavailable [phone] Eze Brock Unavailable Annette Walker Unavailable [phone] Batool Celis MD Unavailable [phone] Reason for Visit * Physical Therapy (Routine) - Closed Specialty Diagnoses / Procedures Referred By Contac t Referred To Contact Physical Therapy Diagnoses Invasive ductal carcinoma of breast, female, right (HCC) Acquired lymphedema Matt Ulrich MD [address] [facility] [address] [place] [address] Phone: tel: fax: Kylah Lawler PT Referral ID Status Reason Start Date Expiration Date V isits Requested Visits Authorized [id number] Closed Specialty Services Required 09/04/2024 01/18/2025 1 20 Encounter Details Date Type Department Care Team (Latest Contact Info) Description 01/15/2025 11:55 AM EDT - 01/15/2025 1:14 PM EDT Hospital Encounter [facility] Physical Therapy [address] [place] [address] Kylah Lawler, PT Discharge Disposition: Home or [...] any clubs o r organizations such as congregation groups, unions, fraternal or athletic groups, or [...] Date Recorded PHQ-2 Total Score 5 07/07/2024 [facility] [place] of Occupat ional Health - Occupational Stress [...] in the past 12 m [facility], were you homeless or living in a senior living (including now)? No 11/07/2023 [facility] IP Transportation Answer D ate Recorded In [...] Capsule 1 01/15/2025 2:53 PM EDT 5 exemestane (AROMASIN) 25 mg Oral Tablet Take 25 mg by mouth daily. 5 fluticasone furoate-vilantero L (BREO ELLIPTA) 200-25 mcg/dose Inhl Disk with DeviceIndications :Mild intermittent asthma, unspecified whether complicated Inhale 1 Puff into the lungs daily. 1 Each 6 4 fluticasone propionate (FLONASE) 50 mcg/actuation Nasl [place], Suspension 1 [place] by Nasal route daily. 1 Each [...] 10 Tablet 5 01/15/2025 3:10 PM EDT UNABLE TO FIND Fentanyl 500 mcg/ml in pain pump. 60 mcg/day lidocaine-priloca ine (EMLA) Top CreamIndications: Invasive ductal carcinoma of breast, female, right (HCC) Apply dime size amount to port area 30 minutes prior to port access. 30 g 1 5 01/19/20 documented as of this encounter Discharge [...] Cole : 1965 Visit # / Insurance: ([employer] ELI EV, 20 VISITS, , ANTHEM IS SHOWING NOT ELIGIBLE AND [employer] IS SHOWING ANTHEM PRIMARY. PATIENT NEEDS TO GET THIS RESOLVED, [employer] Auth [id number] 12 Visits 09/25/24-10/25/24, [employer] Auth [id number] Date Ext 09/25/24-11/24/24 [employer] Auth [id number] DATE extended to 01/18) Onset Date: 08/08/24 [...] progression H/o issued Independent Independent Independent Met Correction Goals: (set for 6 weeks) Patient will demonstrate independence with compression application to decrease lymphedema progression Reviewed with pt Independent Independent Independent Met Patient will be independent with self MLD to decrease lymphedema progression H/o issued, referral [facility] for home pump Independent as able, waiting [...] AM EDT Telemedicine [facility] [address] [facility] [address] [place] [address] Samm Ledesma MATERIALS DEVELOPMENT ENGINEER [address] [facility] [address] [place], [place] [id number] 02/04/2025 11:00 AM EDT Appointment [facility] Women's Well[facility] [place] [address] Tacho Echavarria MD [address] [place] [address] [id number] Naya García PA-C [address] [place] [address] [address] [place] [address] 02/04/2025 2:00 PM EDT Appointment [facility] [place], [place] [id number] Tacho Echavarria MD [address] [place] [address] [id number] 02/04/2025 2:20 PM EDT Appointment [facility] On[facility] [place], [place] [phone] Tacho Echavarria MD 1 [place], [place] [id number] 02/10/2025 10:30 AM EDT Office Visit [facility] [address] [facility] [address] [address] Sin Tran MD [address] [place] [address] 03/02/2025 11:40 AM EDT Office Visit [facility] [place] [facility] [address] [place] [address] [place] [address] [place] [address] 03/02/2025 12:45 PM EDT Procedure visit [facility] [address] [facility] [address] [place] [address] Samm Ledesma, MATERIALS DEVELOPMENT ENGINEER [address] [facility] [address] [place], [place] [id number] 04/29/2025 9:15 AM EDT Appointment [facility] RAD ONC [place], [place] [phone] Batool Celis MD [address] [place] [address] CANCER CARE [place], [place] [phone] documented as of this encounter Goals Goal [...] regularly and maintain an ideal body weight Sanam Cadet MA documented as of this encounter Visit Diagnoses Not on filedocumented in this encounter Additional Health Concerns Assessment Noted Time PHQ-9 Depression Total Score: 17 024 8:39 AM EST PHQ-2 Depression Total Score: 5 07/07/20 24 8:39 AM EST documented as of this encounter Care Teams Local Truck Driver Relationship Specialty [place] [address] [place] [address] PCP - General 06/21/10 Arlyn Schmidt MD [address] [place] [address] Consulting Physician Internal Medicine-Endocrinology, Diabetes & Metabolism 11/28/20 Tacho Echavarria MD 1 [place] [address] Internal Medicine-Medical Oncology 11/12/23 Matt Ulrich MD 1 [place], [place] [phone] Surgery-Surgical Oncology 12/04/23 Eze Brock Pastoral Care 12/13/23 Annette Walker MSW Tire Mold Engraver 05/13/24 Batool Celis MD 1 [facility] CANCER [place], [place] 14[address] Radiation Oncologist Radiology-Radiation Oncology 06/08/24 documented as of this encounter
--- OUTSIDE RECORDS SUMMARY | 2025-01-15 13:15 | XMS_ITS | Encounter Summary ---
Author Organization [place] [address] Care Team Providers Care Principal Biostatistician Name Role Phone Chetna Cedeno MD Primary Care Provider [phone] Arlyn Schmidt MD Unavailable [phone] Tacho Echavarria MD Unavailable [phone] Matt Ulrich MD Unavailable [phone] Eze Brock Unavailable Annette Walker Unavailable [phone] Batool Celis MD Unavailable [phone] Encounter Details Date Type Department Care Team (Latest Contact Info) Description 01/15/2025 1:15 PM EDT - 01/15/2025 1:29 PM EDT Hospital Encounter [facility] [place], [place] [id number] Tacho Echavarria MD [address] [place] [address] [phone] Invasive ductal carcinoma of breast, female, right [...] from your doctor or pharmacy? Never 11/07/2023 [facility] Utilities Answer Date Recorded In the [...] often do you attend chur ch or presybeterian services? 1 to 4 times per year 11/07/2023 Do you belong to any clubs o r organizations such as anabaptism groups, unions, fraternal or athletic groups, or [...] Date Recorded PHQ-2 Total Score 5 07/07/2024 [facility] - [...] any time in the past 12 m [facility], were you homeless or living in a usp (including now)? No 11/07/2023 [facility] IP Transportation Answer [...] 4 fluticasone propionate (FLONASE) 50 mcg/actuation Nasl [place], Suspension 1 [place] by Nasal route daily. 1 Each 11 [...] prior to port access. 30 g 1 01/21/01/19/20 25 documented as of this encounter Discharge Disposition Disposition Code Departure Means Destination Home or Self Care documented in this encounter Plan of Treatment Upcoming Encounters Date Type Department Care Team (Late st Contact Info) Description 02/02/2025 11:20 AM EDT Telemedicine [facility] [address] [place] [address] Samm Ledesma APRN [address] [place], [place] [id number] 02/04/2025 11:00 AM EDT Appointment [facility] Women's Wellness [facility] [place] [address] Tacho Echavarria MD [address] [place] [address] Naya García PA-C [address] [place] [address] [address] [place] [address] 02/04/2025 2:00 PM EDT Appointment [place] [address] Tacho Echavarria MD [address] [place] [address] 02/04/2025 2:20 PM EDT [facility]ointment [facility] [place] [address] Tacho Echavarria MD [address] [place] [address] 02/10/2025 10:30 AM EDT Office Visit [facility] [address] [facility] [address] [place] [address] Sin Tran MD [address] [place] [address] 03/02/2025 11:40 AM EDT Office Visit [facility] [address] [place] [address] [place] [address] [place] [address] 03/02/2025 12:45 PM EDT Procedure visit [facility] [address] [place], [place] [id number] Samm Ledesma, INSURANCE CLAIMS SPECIALIST [address] [place], [place] [id number] 04/29/2025 9:15 AM EDT Appointment [place] [place] [address] Batool Celis MD [address] [place] [address] [place] [address] documented as of this encounter Goals Goal Patient Goal Type Associated Problems Recent Progress Patient-Stated? Author Blood Pressure < 140/90 Blood Pressure 129/95(01/15 2:00 PM EDT) No Chetna Cedeno MD Breast [facility] Breast Health On track(2024 12:01 PM EST) Jasmin Rodriguez, RAUL Note: Patient acknowledges understanding of new diagnosis, plan of care, available resources and how to contact Nurse Navigator with any future questions or concerns. Breast [facility] Breast [facility] No Jasmin Porter, RAUL Note: Patient [...] - 145 mmol/L 01/15/2025 2:05 PM EDT [facility] Potassium 4.0 3.5 - 5.0 mmol/L 01/15/2025 2:05 PM EDT [facility] Chloride 107 98 - 107 mmol/L 01/15/2025 2:05 PM EDT [facility] Total CO2 25 22 - 29 mmol/L 01/15/2025 2:05 PM EDT [facility] Anion Gap 8 7 - 16 mmol/L 01/15/2025 2:05 PM EDT [facility] Calcium 9.3 8.6 - 10.4 mg/dL 01/15/2025 2:05 PM EDT [facility] Glucose Lvl 88 70 - 99 mg/dL 01/15/2025 2:05 PM EDT [facility] BUN 13 6 - 20 mg/dL 01/15/2025 2:05 PM EDT [facility] Creatinine 0.85 0.51 - 1.30 mg/dL 01/15/2025 2:05 PM EDT [facility] Albumin 4.0 3.5 - 5.2 gm/dL 01/15/2025 2:05 PM EDT [facility] Total Protein 6.7 6.4 - 8.3 gm/dL 01/15/2025 2:05 PM EDT [facility] Bili Total 0.3 0.2 - 1.3 mg/dL 01/15/2025 2:05 PM EDT [facility] ALT 8 <=41 U/L 01/15/2025 2:05 PM EDT [facility] AST 14 <=40 U/L 01/15/2025 2:05 PM EDT [facility] Alk Phos 124(H) 36 - 123 U/L 01/15/2025 2:05 PM EDT [facility] eGFR (CKD-EPIcr 2020) 79 >=60 mL/min/1.7 3 m2 01/15/2025 2:05 PM EDT [facility] Comment:Estimated GFR was ca lculated using the CKD-EPIcr (2020) equation refit without race. The equation is recommended by the National Kidney Foundation - [place] [employer] of Nephrology Task Force. Blood VENOUS BLOOD / Unknown Venipuncture / Unknown 01/15/2025 1:41 PM EDT 01/15/2025 1:44 PM EDT us Heydi Sorensen APRN CHEMISTRY ORDERABLES Final Res ult [facility] [address] [place] [id number] * (ABNORMAL) CBC WITH DIFF (01/15/2025 1:41 PM EDT) WBC 4.5 3.7 - 10.3 x10(3)/mc L 01/15/2025 1:49 PM EDT [facility] RBC 3.40(L) 3.90 - 5.20 x10(6)/mc L 01/15/2025 1:49 PM EDT [facility] Hgb 10.3(L) 11.2 - 15.7 g/dL 01/15/2025 1:49 PM EDT [facility] Hct 31.7(L) 34.0 - 45.0 % 01/15/2025 1:49 PM EDT [facility] MCV 93.2 80.0 - 100.0 fL 01/15/2025 1:49 PM EDT [facility] MCH 30.3 26.0 - 34.0 pg 01/15/2025 1:49 PM EDT [facility] MCHC 32.5 30.7 - 35.5 g/dL 01/15/2025 1:49 PM EDT [facility] RDW 14.7 <=14.9 % 01/15/2025 1:49 PM EDT [facility] Platelet 165 155 - 369 x10(3)/mc L 01/15/2025 1:49 PM EDT [facility] MPV 8.4(L) 8.8 - 12.5 fL 01/15/2025 1:49 PM EDT [facility] Neut # Prelim 2.9 1.6 - 6.1 x10(3)/mc L 01/15/2025 1:49 PM EDT [facility] Comment:Preliminary automate d absolute neutrophil count. Value may change if manual differential is indicated. Neut Percent 64.2 % 01/15/2025 1:49 PM EDT [facility] Comment:Neutrophils equals s egs plus bands Imm Gran% 0.2 % 01/15/2025 1:49 PM EDT [facility] Comment:Automated count of m etamyelocytes, myelocytes and promyelocytes. Lymph Percent 28.3 % 01/15/2025 1:49 PM EDT [facility] [place] Percent 5.3 % 01/15/2025 1:49 PM EDT [facility] Eos Percent 1.3 % 01/15/2025 1:49 PM EDT [facility] Baso Percent 0.7 % 01/15/2025 1:49 PM EDT [facility] Neut # 2.9 1.6 - 6.1 x10(3)/mc L 01/15/2025 1:49 PM EDT [facility] Comment:Neutrophils equals s egs plus bands IMMGRAN# 0.0 0.0 - 0.1 x10(3)/mc L 01/15/2025 1:49 PM EDT [facility] Comment:Automated count of m etamyelocytes, myelocytes and promyelocytes. An absolute IG <0.1 is reported as 0.0. Lymph # 1.3 1.2 - 3.9 x10(3)/mc L 01/15/2025 1:49 PM EDT [facility] [place] # 0.2(L) 0.3 - 0.9 x10(3)/mc L 01/15/2025 1:49 PM EDT [facility] Eos# 0.1 0.0 - 0.5 x10(3)/mc L 01/15/2025 1:49 PM EDT [facility] Baso # 0.0 0.0 - 0.1 x10(3)/mc L 01/15/2025 1:49 PM EDT [facility] Blood VENOUS BLOOD / Unknown Venipuncture / Unknown 01/15/2025 1:41 PM EDT 01/15/2025 1:44 PM EDT us Heydi Sorensen INSURANCE CLAIMS SPECIALIST HEMATOLOGY ORDERABLES Final Re sult [facility] [address] [place] [id number] documented in this encounter Visit Diagnoses Diagnosis [...] documented as of this encounter Care Teams Principal Biostatistician Relationship Specialty [place] [address] [place] [id number] PCP - General 06/21/10 Arlyn Schmidt MD [address] [place] [address] Consulting Physician Internal Medicine-Endocrinology, Diabetes & Metabolism 11/28/20 Tacho Echavarria MD 1 [place], [place] [phone] Internal Medicine-Medical Oncology 11/12/23 Matt Ulrich MD 1 [place] [address] Surgery-Surgical Oncology 12/04/23 Eze Brock Pastoral Care 12/13/23 Annette Walker, ARACELI Rand Butter 05/13/24 Batool Celis MD 1 [facility] [place] [address] Radiation Oncologist Radiology-Radiation Oncology 06/08/24 documented as of this encounter
--- OUTSIDE RECORDS SUMMARY | 2025-01-15 13:30 | XMS_ITS | Encounter Summary ---
Author Organization [place] [address] Care Team Providers Care Physics Technical Officer Name Role Phone Chetna Cedeno MD Primary Care Provider [phone] Arlyn Schmidt MD Unavailable [phone] Tacho Echavarria MD Unavailable [phone] Matt Ulrich MD Unavailable [phone] Eze Brock Unavailable Annette Walker Unavailable Batool Celis MD Unavailable [phone] Reason for Visit * Reason Comments Follow-up Breast Cancer Invasive ductal carc inoma of breast, female, right Encounter Details Date Type Department Care Team (Latest Contact Info) Description 01/15/2025 1:30 PM EDT - 01/15/2025 11:59 PM EDT Hospital Encounter [facility] Medical Oncology [place], [place] [id number] Tacho Echavarria MD [address] [place] [address] [phone] Jeanette Smith APRN 1 [place], [place] [id number] Hot flashes related to aromatase inhibitor therapy [...] Never 11/07/2023 [facility] Utilities Answer Date Recorded In the past 12 months has e [employer], gas, oil, or water [employer] threatened to shut off services in your [...] often do you attend chur ch or congregation services? 1 to 4 times per year [...] PHQ-2 Total Score 5 07/07/2024 [facility] of Occupat ional Health - Occupational Stress [...] any time in the past 12 m [facility], were you homeless or living in a care home (including now)? No 11/07/2023 [facility] IP Transportation Answer D ate Recorded [...] 12 Capsule 01/15/2025 2:53 PM EDT 5 exemestane (AROMASIN) 25 mg Oral Tablet Take 25 mg by mouth daily. 5 fluticasone furoate-vilantero L (BREO ELLIPTA) 200-25 mcg/dose Inhl Disk with DeviceIndications :Mild intermittent asthma, unspecified whether complicated Inhale 1 Puff into the lungs daily. 1 Each 6 4 fluticasone propionate (FLONASE) 50 mcg/actuation Nasl [place], Suspension 1 [place] by Nasal route daily. 1 Each 4 [...] HECTOR [address] [facility] [address] [place] [address] Samm Ledesma, OUTSIDE PROPERTY AGENT [address] [facility] [address] [place] [address] 02/04/2025 11:00 AM EDT Appointment [facility] Women's Wellness [facility] [place] [address] Tacho Echavarria MD [address] [place] [address] Naya García PA-C [address] [place] [address] [address] [place] [address] 02/04/2025 2:00 PM EDT Appointment [place] [address] Tacho Echavarria MD [address] [place] [address] 02/04/2025 2:20 PM EDT Appointment [facility] On[facility] [place], [place] [phone] Tacho Echavarria MD [address] [place] [address] 02/10/2025 10:30 AM EDT Office Visit [facility] [address] [facility] [address] [place] [address] Sin Tran MD [facility] [place] [address] 03/02/2025 11:40 AM EDT Office Visit [facility] [address] [place] [address] [place] [address] [place] [address] 03/02/2025 12:45 PM EDT Procedure visit [facility] [address] [facility] [address] [place] [address] Samm Ledesma, OUTSIDE PROPERTY AGENT [address] [facility] [address] [place] [address] 04/29/2025 9:15 AM EDT Appointment [facility] [place] [address] Batool Celis MD [address] [place] [address] [place] [address] documented as of this encounter Goals Goal Patient Goal Type Associated Problems Recent Progress Patient-Stated? Author Blood Pressure < 140/90 Blood Pressure 129/95(01/15 2:00 PM EDT) No Chetna Cedeno MD Breast [facility] On track(2024 12:01 PM EST) No Jasmin Porter, RAUL Note: Patient acknowledges understanding of new diagnosis, plan of care, available resources and how to contact Nurse Navigator with any future questions or concerns. [facility] Breast [facility] No Jasmin Porter, RAUL Note: Patient will [...] may reflect changes made after this encounter. exemestane (AROMASIN) 25 mg Oral Tablet Take 25 mg by mouth daily. 10/12/2024 ketorolac (TORADOL) 10 mg Oral Tablet Take 10 mg by mouth once. 12/08/2024 added in this encounter Additional Health Concerns Assessment Noted Time PHQ-9 Depression Total Score: 17 024 8:39 AM EST PHQ-2 Depression Total Score: 5 07/07/20 24 8:39 AM EST documented as of this encounter Care Teams Physics Technical Officer Relationship Specialty [place] [address] [place] [address] PCP - General 06/21/10 Arlyn Schmidt MD [address] [place] [address] Consulting Physician Internal Medicine-Endocrinology, Diabetes & Metabolism 11/28/20 Tacho Echavarria MD 1 [place] [id number] Internal Medicine-Medical Oncology 11/12/23 Matt Ulrich MD 1 [place] [address] Surgery-Surgical Oncology 12/04/23 Eze Brock Pastoral Care 12/13/23 Annette Walker, ARACELI Fruit Coordinator 05/13/24 Batool Celis MD 1 [facility] [place], [place] [phone] Radiation Oncologist Radiology-Radiation Oncology 06/08/24 documented as of this encounter
--- NOTE | 2025-01-30 23:39 | CT_ITS ---
PROCEDURE INFORMATION: Exam: CT Abdomen And Pelvis With Contrast Exam date and time: 01/31/2025 2:14 AM Age: 59 years old Clinical indication: Other: Breast CA w/ met, cp, SOA; Additional info: Breast CA w/ met, abd pain, diarrhea, weak TECHNIQUE: Imaging protocol: Computed tomography of the abdomen and pelvis with contrast. 3D rendering (Not supervised by radiologist): MIP and/or 3D reconstructed images were created by the technologist. Radiation optimization: All CT scans at this facility use at least one of these dose optimization techniques: automated exposure control; mA and/or kV adjustment per patient size (includes targeted exams where dose is matched to clinical indication); or iterative reconstruction. Contrast material: ISOVUE; Contrast volume: 80 ml; Contrast route: IV; COMPARISON: CT ABDOMEN PELVIS W CON 01/31/2025 2:14 AM FINDINGS: Lungs: No acute finding. Diaphragm: A small hiatal hernia is present. Liver: Normal. No mass. Gallbladder and biliary ducts: The gallbladder is absent. There is mild biliary ductal dilation which is likely related to the cholecystectomy status. No obstructing stone or mass is evident. Pancreas: Normal. No ductal dilation. Spleen: Normal. No splenomegaly. Adrenal glands: Normal. No mass. Kidneys and ureters: Normal. No hydronephrosis. Stomach and bowel: There is evidence of gastric sleeve procedure. The colon is fluid-filled. There is mild wall thickening of the colon particularly involving the descending and sigmoid colon suggesting colitis. No bowel obstruction. Appendix: No evidence of appendicitis. Intraperitoneal space: Unremarkable. No free air. No significant fluid collection. Vasculature: Unremarkable. No abdominal aortic aneurysm. Lymph nodes: Unremarkable. No enlarged lymph nodes. Urinary bladder: Unremarkable as visualized. Reproductive: Unremarkable as visualized. Bones/joints: Significant degenerative disc disease and facet arthropathy at L4-L5 and L5-S1. Soft tissues: Unremarkable. IMPRESSION: 1. Mild colitis with fluid-filled colon noted. 2. Mild biliary ductal dilation likely related to the cholecystectomy status. However, if there is clinical or laboratory evidence for bile duct obstruction, further evaluation with MRCP is recommended. 3. Other nonemergent findings as noted.
--- NOTE | 2025-01-30 23:39 | CT_ITS ---
PROCEDURE INFORMATION: Exam: CTA Chest With Contrast Exam date and time: 01/31/2025 2:14 AM Age: 59 years old Clinical indication: Other: Breast CA w/ met, cp, SOA TECHNIQUE: Imaging protocol: Computed tomographic angiography of the chest with contrast. Exam focused on the arteries. 3D rendering (Not supervised by radiologist): MIP and/or 3D reconstructed images were created by the technologist. Radiation optimization: All CT scans at this facility use at least one of these dose optimization techniques: automated exposure control; mA and/or kV adjustment per patient size (includes targeted exams where dose is matched to clinical indication); or iterative reconstruction. Contrast material: ISO 370; Contrast volume: 80 ml; Contrast route: INTRAVENOUS (IV); COMPARISON: CT ABDOMEN PELVIS W CON 01/31/2025 2:14 AM FINDINGS: Tubes, catheters and devices: A dorsal column stimulator is noted. An epidural catheter is present extending into the lower thoracic region. Pulmonary arteries: There are segmental and subsegmental pulmonary artery filling defects within the lingula. Aorta: Unremarkable. No aortic aneurysm. No aortic dissection. Lungs: There is patchy peripheral airspace disease involving the right upper and middle lobes. Pleural spaces: Unremarkable. No pneumothorax. No pleural effusion. Heart: The heart RV/LV ratio is 1.0. Lymph nodes: There are several mildly prominent mediastinal lymph nodes with short axis measuring less than 10 mm. Bones/joints: Unremarkable. No acute fracture. Soft tissues: There is evidence of right mastectomy and axillary node dissection. There is subcentimeter subcutaneous soft tissue nodules along the lateral right chest wall series 5 centered on image 68. These could represent small metastatic deposits. IMPRESSION: 1. Lingular segmental and subsegmental pulmonary emboli. 2. RV/LV ratio of 1.0 suggesting right ventricular strain. 3. Peripheral areas of airspace disease right middle and upper lobes suggesting acute inflammation. 4. Subcentimeter subcutaneous soft tissue nodules lateral right chest wall could represent metastatic deposits.
--- NOTE | 2025-01-30 23:40 | ECG_ITS ---
APPROVED REPORT Exam: Resting ECG HR:72 bpm ECG Measurements Heart Rate 72 AXES MD 159 P 5 QRSd 104 QRS 52 QT 378 T 30 QTc 402 Conclusion SINUS RHYTHM NORMAL ECG Electronically signed by : KATY FLORES, 01/31/2025 07:24:30
--- NOTE | 2025-01-30 23:44 | ED_ITS ---
Discharge Plan Disposition Patient Disposition: Admitted Clinical Impressions Clinical Impression: Acute hypokalemia, Acute dehydration Diarrhea Qualifiers: Diarrhea type: presumed infectious Qualified Code(s): R19.7 - Diarrhea, unspecified Discharge ED Provider: Benito Avendaño Adult HPI General Chief complaint: Weakness Stated complaint: General Malaise Time Seen by Provider: 01/30/25 23:44 History of Present Illness HPI narrative: 59-year-old female with history of metastatic breast cancer presents for several weeks of worsening generalized symptoms. She reports generalized weakness, nausea, abdominal pain, diarrhea, decreased p.o. intake. She denies fever at home. She has had chemo, radiation, mastectomy and is on chronic medications for her breast cancer. She reports ongoing chest pain abdominal pain nausea vomiting etc. for days to weeks. Related Data Home Medications ?Medication ?Instructions ?Recorded ?Confirmed abemaciclib 100 mg tablet 100 mg PO BID 01/31/2501/31 (Verzenio) atogepant 30 mg tablet (Qulipta) 60 mg PO DAILY 01/31/25 dexamethasone 4 mg tablet 8 mg PO DAILYDM 01/31/25 duloxetine 30 mg capsule,delayed 30 mg PO DAILY 01/31/25 release ergocalciferol (vitamin D2) 50,000 50,000 unit PO WEEK LY 01/31/25 01/31/25 unit tablet exemestane 25 mg tablet 25 mg PO DAILY 01/31/2501/06 ketorolac 10 mg tablet 10 mg PO Q6H PRN Pain 01/31/25 losartan 50 mg tablet 50 mg PO DAILY 01/31/2501/06 olanzapine 5 mg tablet 5 mg PO DAILY 01/31/2501/31 omeprazole 40 mg capsule,delayed 40 mg PO DAILY 01/31/25 release ondansetron 8 mg disintegrating 8 mg PO BID 01/31/25 0 01/31/25 tablet oxybutynin chloride 5 mg 5 mg PO DAILY 01/31/2501/31 tablet,extended release 24 hr prochlorperazine maleate 10 mg 10 mg PO Q6H PRN Nausea And 01/31/25 01/31/25 tablet Vomiting rimegepant 75 mg disintegrating 75 mg PO DAILY PRN Obed cony 01/31/25 01/31/25 tablet (Nurtec ODT) Headache ropinirole 0.25 mg tablet 0.25 mg PO HS 01/31/2501/31 tramadol 50 mg tablet 50 mg PO Q6H PRN Pain 01/31/25 ubrogepant 100 mg tablet (Ubrelvy) 100 mg PO Q2H PRN m igraine 01/31/25 01/31/25 Allergies Allergy/AdvReac Type Severity Reaction Status Date / Time hydromorphone (From Dilaudid) Allergy Intermediate Rash Verified 01/31/25 00:01 morphine Allergy Mild Rash Verified 01/31/25 00:01 lactose Allergy Difficulty Verified 01/31/25 05:53 Swallowing tree nut Allergy Anaphylaxis Verified 01/31/25 04:03 [facility] Disclaimer: The information contained in this section may have been updated after the patient was seen, as this information can be updated by other users. Social History (Updated 01/31/25 @ 06:14 by Benoit Ham MD) Smoking Status: Never smoker alcohol intake: former current occupational status: other Travel in the last 8 weeks?: Inside the [place] ROS Obtained: Yes All systems reviewed & no additional complaints except as documented Physical Exam General General appearance: alert Comment: Generally ill-appearing Head Head exam: atraumatic and normocephalic Eye Eye exam: Present normal appearance, PERRL and EOMI ENT ENT exam: Present normal oropharynx, mucous membranes dry and normal external ear exam Neck Neck exam: Present normal inspection and full ROM Chest Chest inspection: Present normal inspection and symmetric chest wall rise; Absent tenderness Respiratory Respiratory exam: Present normal lung sounds bilaterally; Absent respiratory distress Cardiovascular Cardiovascular exam: Present regular rate and normal rhythm Abdominal Exam Abdominal exam: Present soft, distention (Mild) and tenderness (Generalized); Absent guarding Extremities Exam Extremities exam: Present normal inspection; Absent edema or joint swelling Back Exam Back exam: Present normal inspection; Absent tenderness Neurological Exam Neurological exam: Present alert and oriented X3; Absent motor sensory deficit Psychiatric Psychiatric exam: Present anxious Skin Skin exam: Present warm, dry and normal color Lymphatic Lymphatic Findings: no adenopathy Medical Decision Making Medical Records Medical records reviewed: Yes I reviewed the patient's medical records. Screening: Per USPSTF and CDC recommendations, given the prevalence of disease in our region, it is our hospital?s policy to screen for HIV and viral Hepatitis for all patients aged 18 and over and those with ongoing risk factors. Josh Inquiry Pt receiving controlled substance: No Josh was queried for this patient: No Vital Signs: 01/30/25 23:51 01/31/25 00:45 01/31/25 01:31 Temperature 98.4 F Temperature Source Oral Pulse Rate 86 93 H Pulse Rate [Right Radial] 89 Respiratory Rate 16 Blood Pressure 109/71 L 134/62 Blood Pressure [Right Arm] 125/73 Blood Pressure Mean [Right Arm] 90 Blood Pressure Source Blood Pressure Source [Right Arm] Blood Pressure Position Blood Pressure Position [Right Arm] Supine 02 Sat by Pulse Oximetry 97 98 99 Oxygen Delivery Method Room Air 01/31/25 02:00 01/31/25 02:53 01/31/25 03:00 Temperature Temperature Source Pulse Rate 95 H Pulse Rate [Right Radial] Respiratory Rate Blood Pressure 131/83 Blood Pressure [Right Arm] Blood Pressure Mean [Right Arm] Blood Pressure Source Blood Pressure Source [Right Arm] Blood Pressure Position Blood Pressure Position [Right Arm] 02 Sat by Pulse Oximetry 98 Oxygen Delivery Method Room Air Room Air 01/31/25 03:10 01/31/25 03:13 Temperature 98.0 F 98 F Temperature Source Oral Oral Pulse Rate 58 L Pulse Rate [Right Radial] 87 Respiratory Rate 16 20 Blood Pressure 138/53 L Blood Pressure [Right Arm] 138/83 Blood Pressure Mean [Right Arm] 101 Blood Pressure Source Automatic Cuff Blood Pressure Source [Right Arm] Automatic Cuff Blood Pressure Position Sitting Blood Pressure Position [Right Arm] 02 Sat by Pulse Oximetry 96 Oxygen Delivery Method Room Air Room Air Lab Data Lab results reviewed: Yes I reviewed the patient's lab results. Lab Results 01/31/25 00:57: WBC 6.4, RBC 3.76 L, Hgb 11.5 L, Hct 33.9 L, MCV 90.2, MCH 30.6, MCHC 33.9, RDW 14.3, Plt Count 181, MPV 8.6, Neut % (Auto) 80.5 H, Lymph % (Auto) 14.0, Warren % (Auto) 3.7, Eos % (Auto) 0.6, Baso % (Auto) 0.6, Neut # (Auto) 5.2, Lymph # (Auto) 0.9, Warren # (Auto) 0.2, Eos # (Auto) 0.0, Baso # (Auto) 0.0, PT 13.7 H, INR 1.26 H, Sodium 138, Potassium 2.5 L*, Chloride 108 H, Carbon Dioxide 20 L, Anion Gap 12.5, BUN 15, Creatinine 1.00, Estimated Creat Clear 79, Estimated GFR 57 L, Est GFR ( Amer) 69, Glucose 94, Calcium 9.4, Phosphorus 2.2 L, Magnesium 1.6, Total Bilirubin 1.1, AST 22, ALT 13, A lkaline Phosphatase 129 H, Total Creatine Kinase 69, Troponin I 0.02, NT-Pro-B Natriuret Pep 116, Total Protein 6.9, Albumin 4.2, Globulin 2.7, Albumin/Globulin Ratio 1.6, Lipase 91, TSH 1.57, Thyroxine (T4) 11.6 H 01/31/25 01:05: VBG pH 7.38, VBG pCO2 29.0 L, VBG pO2 49.4 H, VBG HCO3 16.8 L, V BG Total CO2 17.7 L, VBG O2 Saturation 82.2 H, VBG Base Excess -6.9 L, VBG Lactic Acid 1.6 01/31/25 01:35: Urine Color Yellow, Urine Appearance Clear, Urine pH 6.0, Ur Specific [place] 1.015, Urine Protein 1+ A, Urine Glucose (UA) Negative, Urine Ketones 2+, Urine Blood Negative, Urine Nitrate Negative, Urine Bilirubin 1+ A, Urine Urobilinogen 0.2, Ur Leukocyte Esterase Negative, Urine RBC None, Urine WBC 5-10, Ur Squamous Epith Cells 10-20, Urine Bacteria None 01/31/25 00:57 01/31/25 00:57 Orders (Tests/Meds): ED MEDICATIONS Generic Name Dose Route Start Last Admin Trade Name Freq PRN Reason Stop Dose Admin Acetaminophen 650 mg 01/31/25 04:29 Acetaminophen 325mg Tab PO 03/02/25 04:28 Q4HP PRN Fever or Mild Pain (1-3) Dexamethasone 8 mg 01/31/25 07:00 01/31/25 06:22 Dexamethasone 4mg Tablet PO 03/02/25 06:59 8 mg DAILYDM BERNA Administration Duloxetine HCl 30 mg 01/31/25 09:00 Duloxetine 30mg Capsule.Dr PO 03/02/25 08:59 DAILY BERNA Enoxaparin Sodium 80 mg 01/31/25 03:00 01/31/25 04:41 Enoxaparin 100mg/Ml Syringe 1 mg/kg (80 mg) 03/02/25 02:59 80 mg SUBCUT Administration Q12H BERNA Lactated Ringer's 1,000 mls @ 75 mls/hr 01/31/25 04:45 01/31/25 04:42 Lactated Ringer's 1000 Ml Bag IV 03/02/25 04:44 75 mls/hr .[id number] BERNA Administration Piperacillin Sod/Tazobactam 50 mls @ 100 mls/hr 01/31/25 04:45 01/31/25 05:22 Sod 3.375 gm/ Sodium Chloride IV 02/10/25 04:44 100 mls/hr Q6H BERNA Administration Non-Formulary Medication 5 mg 01/31/25 09:00 Oxybutynin Chloride PO 03/02/25 08:59 DAILY BERNA Non-Formulary Medication 5 mg 01/31/25 09:00 Olanzapine PO 03/02/25 08:59 DAILY BERNA Ondansetron HCl 4 mg 01/31/25 04:35 01/31/25 05:22 Ondansetron 4mg/2ml Vial IV 03/02/25 04:34 4 mg Q6HP PRN Administration Nausea Pantoprazole Sodium 40 mg 01/31/25 21:00 Pantoprazole 40mg Tablet PO 03/02/25 20:59 HS [facility] Ropinirole HCl 0.25 mg 01/31/25 21:00 Ropinirole Hcl 0.25 Mg Tablet PO 03/02/25 20:59 HS [facility] Sodium Chloride 10 ml 01/31/25 04:35 Sodium Chloride 0.9% 10ml Flush Syringe IV 03/02/25 04:34 NEEDED PRN Maintain IV Site Tramadol HCl 50 mg 01/31/25 06:06 Tramadol 50mg Tablet PO 03/02/25 06:05 Q6H PRN Pain Discontinued Medications Generic Name Dose Route Start Last Admin Trade Name Freq PRN Reason Stop Dose Admin Acetaminophen 1,000 mg 01/30/25 23:39 01/31/25 00:16 Acetaminophen 500mg Tab PO 01/30/25 23:40 1,000 mg ONCE ONE Administration Sodium Chloride 1,000 mls @ 999 mls/hr 01/30/25 23:45 01/31/25 00:09 Sod Chlor 0.9% 1000ml Bag IV 01/31/25 00:45 999 mls/hr .Q1H1M BERNA Administration Potassium Chloride/Water 100 mls @ 100 mls/hr 01/31/25 02:00 01/31/25 04:41 Potassium Chloride 10meq/100ml Ivpb IV 01/31/25 04:59 100 mls/hr Q1H BERNA Administration Iopamidol 70 ml 01/31/25 02:12 01/31/25 02:13 Iopamidol-370 (76%);100ml Bottle IV 01/31/25 02:13 70 ml ONCE ONE Administration Ondansetron HCl 4 mg 01/30/25 23:39 01/31/25 00:15 Ondansetron 4mg/2ml Vial IV 01/30/25 23:40 4 mg ONCE ONE Administration Potassium Chloride 40 meq 01/31/25 01:56 01/31/25 02:21 Potassium Chloride 20meq Tab PO 01/31/25 01:57 40 meq ONCE ONE Administration Ropinirole HCl 0.5 mg 01/31/25 01:59 01/31/25 02:26 Ropinirole 1mg Tablet PO 01/31/25 02:00 0.5 mg ONCE ONE Administration Sodium Chloride 40 ml 01/31/25 02:12 01/31/25 02:13 0.9 % Sodium Chloride 50 Ml Vial IV 01/31/25 02:13 40 ml ONCE ONE Administration Sodium Chloride 10 ml 01/31/25 02:12 01/31/25 02:13 Sodium Chloride 0.9% 10ml Syr (Rad Only) IV 03/02/25 02:11 10 ml NEEDED PRN Administration Maintain IV Site ORDERS Category Date Time Status CT abdomen pelvis w con Stat Cat Scan 01/30/25 23:[address] angio chest PE protocol Stat Cat Scan 01/30/25 23:39 Completed BNP [NT Pro Brain Natriuretic Pep.] Stat Lab 01/30/25 23:40 Completed CBC w/Auto Diff [Complete Blood Count Auto Diff] Stat Lab 01/30/25 23:40 Completed CK [Creatine Kinase] Stat Lab 01/30/25 23:39 Completed CMP [Comprehensive Metabolic Panel] Stat Lab 01/30/25 23:40 Completed Diarrhea 23 Panel, PCR Stat Lab 01/31/25 05:20 Received INR [Prothrombin Time INR] Stat Lab 01/30/25 23:40 Completed Lactate Venous Stat Lab 01/31/25 01:03 Ordered Lipase Stat Lab 01/30/25 23:40 Completed Magnesium Stat Lab 01/30/25 23:40 Completed Phosphorous Stat Lab 01/30/25 23:40 Completed T4 (Thyroxine) Stat Lab 01/30/25 23:39 Completed TSH [Thyroid Stimulating Hormone] Stat Lab 01/30/25 23:39 Completed Troponin I Q3H Lab 01/30/25 23:40 Completed Troponin I Q3H Lab 01/31/25 03:44 Completed UA [Urinalysis and Microscopic] Stat Lab 01/31/25 01:35 Completed Blood Culture Stat Micro 01/31/25 00:59 Received VBG [Venous Blood Gas] Stat RT 01/31/25 01:05 Completed ECG Data Tracing #1: I reviewed this ECG and interpreted as documented below: Sinus rhythm, rate of 72, no concerning ischemic changes, no arrhythmia ECG initial impression date: 01/30/25 ECG initial impression time: 23:30 Tissue Perfus/Sepsis Re-Eval Sepsis Re-Evaluation Performed: Yes Date Performed: 01/31/25 Time Performed: 01:25 HEART Score History (anamnesis): Slightly suspicious ECG: Normal Age: 45-65 years Risk factors: 1-2 risk factors Troponin: </= normal limit HEART Score: 2 Medical Decision Narrative: 59-year-old female with history of metastatic breast cancer status postmastectomy, chemo, radiation presents with 2 weeks of generalized symptoms including chest pain abdominal pain nausea vomiting diarrhea decreased p.o. intake etc.. History was obtained via interactive discussion with patient. On arrival, patient is [afebrile, hemodynamically stable, satting appropriately, alert, oriented x4, GCS 15], moving all extremities spontaneously. Full physical exam performed and significant for generalized abdominal tenderness, dry mucous membranes Differential includes but is not limited to metastatic malignancy, gastroenteritis, dehydration, renal dysfunction, PE, pneumonia, UTI. Patient was given bolus, Tylenol Zofran for symptomatic management and correction of underlying abnormalities. Workup initiated including CBC CMP BNP mag Phos lipase TSH T4 UA troponin CK UA diarrhea panel CT PE CT abdomen pelvis with IV contrast.. On re-evaluation, patient [remains afebrile, HD stable.] Laboratory workup independently interpreted by me and significant for no leukocytosis, severe hypokalemia 2.5, stable renal function, normal lactate urinalysis appears contaminated with squames.. Imaging independently interpreted by me and significant for small lingular PE, diffuse colitis. See radiology read for full review of final results. Given patient history, exam and workup, patient's presentation most likely represents severe hyperkalemia secondary to colitis and diarrhea. Interactive succussion was had with patient regarding presentation. She is initiated on IV and p.o. potassium replacement as well Lovenox for her PE. Interactive discussion was had with hospitalist regarding admission.. Procedures Risk/Benefits of Procedure(s) Were Explained: Yes Critical Care Critical Care Time Critical Care Time: Yes Attestation: On 01/30/25, the high probability of a clinically significant, sudden or life threatening deterioration of the following system(s) required my full and direct attention, intervention and personal management. The time I documented below is in addition to time spent performing reported procedures but includes the following listed in this critical care notation. Total Time Total Critical Care Time: 45
[2025-01-30 23:51] VITALS: BP 125/73; PULSE 89; RESP 16; TEMP 36.9; O2SAT 97; BMI 31.3
[2025-01-31] VITALS (9 sets, daily range): BP systolic 103–164; BP diastolic 53–83; PULSE 58–96; RESP 14–20; TEMP 36.6–36.8; O2SAT 96–100; BMI 32.2; BMI 32.9
[2025-01-31] MEDS: 0.9 % SODIUM CHLORIDE 1000ML 1,000 ML 999 ML IV (00:09)
[2025-01-31] MEDS: ONDANSETRON 4MG/2ML VIAL 4 MG IV ×4 (00:15→23:12)
[2025-01-31] MEDS: ACETAMINOPHEN 500MG TAB 1000 MG PO (00:16)
[2025-01-31 01:10] LABS: VBG HCO3 16.8 mmol/L (23-30); VBG PCO2 29.0 mmol/L (35-51); VBG PH 7.38 mmol/L (7.31-7.41); VBG PO2 49.4 mmol/L (28-40)
[2025-01-31 01:11] LABS: Lactate Venous 1.6 mmol/L (0.4-2.0)
[2025-01-31 01:21] LABS: Hematocrit 33.9 % (37.0-47.0); Hemoglobin 11.5 g/dL (12.2-16.2); Immature Granulocytes % 0.6 %; Mean Corpuscular HGB Conc 33.9 g/dL (31.8-35.4); Mean Corpuscular Hemoglobin 30.6 pg (27.0-31.2); Mean Corpuscular Volume 90.2 fl (81-99); Nucleated Red Blood Cells % 0 %; Platelet Count 181 K/mm3 (142-424); Red Blood Count 3.76 M/mm3 (4.20-5.40); Red Cell Distribution Width-SD 46.6 fL; White Blood Count 6.4 K/mm3 (4.8-10.8)
[2025-01-31 01:32] LABS: INR 1.26 (0.9-1.1); Prothrombin Time 13.7 seconds (10.1-12.5)
[2025-01-31 01:38] LABS: Albumin Level 4.2 g/dl (3.5-5.0); Chloride 108 mmol/L (98-107); Sodium 138 mmol/L (136-145)
[2025-01-31 01:40] LABS: Alanine Aminotransferase 13 U/L (12-78); Aspartate Amino Transferase 22 U/L (14-36); Blood Urea Nitrogen 15 mg/dl (7-17); Creatine Kinase 69 U/L (30-135); Creatinine Clearance Estimated 79 mL/min (50-200); Creatinine,Serum 1.00 mg/dl (0.52-1.04); Estimated Glomerular Filt Rate 57 ml/min (>60); GFR (African American) 69 ML/MIN (>60)
[2025-01-31 01:41] LABS: Albumin/Globulin Ratio 1.6 (1.1-1.8); Alkaline Phosphatase 129 U/L (38-126); Anion Gap 12.5 mEq/L (5-15); Bilirubin,Total 1.1 mg/dl (0.2-1.3); Calcium 9.4 mg/dl (8.4-10.2); Carbon Dioxide 20 mmol/L (22.0-30.0); Globulin 2.7 g/dL (1.3-3.2); Glucose 94 mg/dl (74-100); Lipase 91 U/L (23-300); Magnesium 1.6 mg/dl (1.6-2.3); Phosphorous 2.2 mg/dl (2.5-4.5); Total Protein,Serum 6.9 g/dl (6.3-8.2)
[2025-01-31 01:49] LABS: Microscopic, Urine URINE MICROSCOPIC (MICROSCOPIC)
[2025-01-31 01:51] LABS: Color,Urine YELLOW (Yellow); Glucose,Urine (UA) Negative (Negative); Ketones,Urine 2+ (Negative); Leukocyte Esterase,Urine Negative (Negative); PH,Urine 6.0 (5.0-8.5); Protein,Urine 1+ (Negative); Specific Gravity, Urine 1.015 (1.005-1.030); Urobilinogen,Urine 0.2 EU/dl (0.2)
[2025-01-31 01:51] LABS: NT Pro Brain Natriuretic Pep. 116 pg/mL (0-125)
[2025-01-31 01:53] LABS: Potassium 2.5 mmoL/L (3.5-5.1); Troponin I 0.02 ng/ml (0.00-0.034)
--- NOTE | 2025-01-31 01:53 | PC.NURSE ---
critical called from MD tl notified
[2025-01-31 01:58] LABS: T4 (Thyroxine) 11.6 ug/dl (5.53-11.0)
[2025-01-31 02:03] LABS: Bilirubin,Urine 1+ (Negative)
[2025-01-31 02:12] LABS: Thyroid Stimulating Hormone 1.57 uIU/mL (0.465-4.68)
[2025-01-31] MEDS: SODIUM CHLORIDE 0.9% 10ML SYR (RAD ONLY) 10 ML IV (02:13)
[2025-01-31] MEDS: IOPAMIDOL-370 (76%);100ML BOTTLE 70 ML IV (02:13)
[2025-01-31] MEDS: 0.9 % SODIUM CHLORIDE 50 ML VIAL 40 ML IV (02:13)
[2025-01-31] MEDS: POTASSIUM CHLORIDE 20MEQ TAB 40 MEQ PO ×3 (02:21→23:03)
[2025-01-31] MEDS: ROPINIROLE 1MG TABLET 0.5 MG PO (02:26)
--- NOTE | 2025-01-31 02:56 | PC.NURSE ---
Called admission report to Sheridan CARTER
--- NOTE | 2025-01-31 03:40 | PC.NURSE ---
Pt arrived to the floor @[id number]
[2025-01-31 04:26] LABS: Troponin I 0.02 ng/ml (0.00-0.034)
--- NOTE | 2025-01-31 04:29 | EXP.HP ---
History of Present Illness *Admission Date: 01/31/25 *Reason for visit:: Diarrhea, malaise, *History of present illness: Meri Cole is 59-year-old female with a medical history significant for metastatic intraductal carcinoma stage IIIb of right breast s/p total mastectomy, chemoradiotherapy ([facility]) on maintenance immunotherapy, anxiety/depression, hypertension, GERD who presents with at least 3 weeks of poor p.o. tolerance, nausea and intermittent vomiting, abdominal pain, and watery diarrhea. Patient states oncologist recently changed her maintenance therapy, including dosing, about a month ago after which point she thinks symptoms began. She states she reached out to her oncologist who recommended keeping her appointment this coming . She initially had nausea with vomiting which has improved, but continues to have poor oral tolerance. Endorses 3 weeks of watery diarrhea, denies recent antibiotic use. Denies fever/chills, chest pain, shortness of breath, urinary symptoms. Workup in the ED significant for potassium 2.5, phosphorus 2.2, normal magnesium, CT abdomen showing mild colitis with mild biliary ductal dilatation with prior cholecystectomy, CTA chest showing lingular PE with evidence of RV strain RV/LV ratio of 1.0, and right-sided lung inflammation which patient states is known. Of note, patient recently got a second opinion regarding her breast cancer at [facility] who stated patient will likely have left-sided breast cancer as well. Given severe electrolyte abnormalities, intractable diarrhea, and poor oral tolerance Case discussed with ED provider and decision made to admit patient for the same. [facility] Disclaimer: The information contained in this section may have been updated after the patient was seen, as this information can be updated by other users. Social History Smoking Status: Never smoker alcohol intake: former current occupational status: other Travel in the last 8 weeks?: Inside the [place] Other Medical History Have you received the Flu Vaccine for this season: Yes Have you received the Pneumonia Vaccine: Yes Meds Home Medications and Allergies Home Medications ?Medication ?Instructions ?Recorded ?Confirmed ?Type abemaciclib 100 mg tablet 100 mg PO BID 01/31/25 01/31/25 History (Verzenio) atogepant 30 mg tablet (Qulipta) 60 mg PO DAILY 01/31/25 01/31/25 History dexamethasone 4 mg tablet 8 mg PO DAILYDM 01/31/25 01/31/25 History duloxetine 30 mg capsule,delayed 30 mg PO DAILY 01/31/25 01/31/25 History release ergocalciferol (vitamin D2) 50,000 50,000 unit PO WEEKLY 01/31/25 01/31/25 History unit tablet exemestane 25 mg tablet 25 mg PO DAILY 01/31/25 01/31/25 History ketorolac 10 mg tablet 10 mg PO Q6H PRN Pain 01/31/25 01/31/25 History losartan 50 mg tablet 50 mg PO DAILY 01/31/25 01/31/25 History olanzapine 5 mg tablet 5 mg PO DAILY 01/31/25 01/31/25 History omeprazole 40 mg capsule,delayed 40 mg PO DAILY 01/31/25 01/31/25 History release ondansetron 8 mg disintegrating 8 mg PO BID 01/31/25 01/31/25 History tablet oxybutynin chloride 5 mg 5 mg PO DAILY 01/31/25 01/31/25 History tablet,extended release 24 hr prochlorperazine maleate 10 mg 10 mg PO Q6H PRN Nausea And 01/31/25 01/31/25 History tablet Vomiting rimegepant 75 mg disintegrating 75 mg PO DAILY PRN Migraine 01/31/25 01/31/25 History tablet (Nurtec ODT) Headache ropinirole 0.25 mg tablet 0.25 mg PO HS 01/31/25 01/31/25 History tramadol 50 mg tablet 50 mg PO Q6H PRN Pain 01/31/25 01/31/25 History ubrogepant 100 mg tablet (Ubrelvy) 100 mg PO Q2H PRN migraine 01/31/25 01/31/25 History New Prescriptions to Start Prescriptions: Allergies Allergy/AdvReac Type Severity Reaction Status Date / Time hydromorphone (From Dilaudid) Allergy Intermediate Rash Verified 01/31/25 00:01 morphine Allergy Mild Rash Verified 01/31/25 00:01 lactose Allergy Difficulty Verified 01/31/25 05:53 Swallowing tree nut Allergy Anaphylaxis Verified 01/31/25 04:03 Exam Data for Last 24 hours Vital signs and Labs for Last 24 Hours: Temp Pulse Resp BP Pulse Ox O2 Del Method 98 F 58 L 20 138/53 L 96 Room Air 01/31/25 03:13 01/31/25 03:13 01/31/25 03:13 01/31/25 03:13 01/31/25 03:10 01/31/25 03:13 Laboratory Results - last 24 hr 01/31/25 00:57: WBC 6.4, RBC 3.76 L, Hgb 11.5 L, Hct 33.9 L, MCV 90.2, MCH 30.6, MCHC 33.9, RDW 14.3, Plt Count 181, MPV 8.6, Neut % (Auto) 80.5 H, Lymph % (Auto) 14.0, [place] % (Auto) 3.7, Eos % (Auto) 0.6, Baso % (Auto) 0.6, Neut # (Auto) 5.2, Lymph # (Auto) 0.9, [place] # (Auto) 0.2, Eos # (Auto) 0.0, Baso # (Auto) 0.0, PT 13.7 H, INR 1.26 H, Sodium 138, Potassium 2.5 L*, Chloride 108 H, Carbon Dioxide 20 L, Anion Gap 12.5, BUN 15, Creatinine 1.00, Estimated Creat Clear 79, Estimated GFR 57 L, Est GFR ( Amer) 69, Glucose 94, Calcium 9.4, Phosphorus 2.2 L, Magnesium 1.6, Total Bilirubin 1.1, AST 22, ALT 13, Alkaline Phosphatase 129 H, Total Creatine Kinase 69, Troponin I 0.02, NT-Pro-B Natriuret Pep 116, Total Protein 6.9, Albumin 4.2, Globulin 2.7, Albumin/Globulin Ratio 1.6, Lipase 91, TSH 1.57, Thyroxine (T4) 11.6 H 01/31/25 01:05: VBG pH 7.38, VBG pCO2 29.0 L, VBG pO2 49.4 H, VBG HCO3 16.8 L, VBG Total CO2 17.7 L, VBG O2 Saturation 82.2 H, VBG Base Excess -6.9 L, VBG Lactic Acid 1.6 01/31/25 01:35: Urine Color Yellow, Urine Appearance Clear, Urine pH 6.0, Ur Specific [place] 1.015, Urine Protein 1+ A, Urine Glucose (UA) Negative, Urine Ketones 2+, Urine Blood Negative, Urine Nitrate Negative, Urine Bilirubin 1+ A, Urine Urobilinogen 0.2, Ur Leukocyte Esterase Negative, Urine RBC None, Urine WBC 5-10, Ur Squamous Epith Cells 10-20, Urine Bacteria None I & O for Last 24 hours: Intake & Output 01/28/25 01/29/25 01/30/25 01/31/25 23:59 23:59 23:59 23:59 Weight 80.286 kg 82.582 kg Constitutional Constitutional: no acute distress *Routine HEENT Exam Head: Present normocephalic Eye: Present EOMI and PERRL ENT: Present mucous membranes moist *Routine Neck Exam Neck: Present supple; Absent lymphadenopathy *Routine Respiratory Exam Respiratory: Present CTA bilaterally *Routine Cardiovascular Exam Cardiovascular: Present RRR *Routine Abdominal Exam Abdominal: Present soft, normoactive bowel sounds and tenderness Comments: Left lower quadrant abdominal tenderness to palpation. No peritoneal signs. *Routine Rectal Exam Rectal:: deferred *Routine Genitalia Exam Genitalia:: deferred *Routine Extremities Exam Extremities: Absent cyanosis, clubbing or edema *Routine Skin Exam Skin: Present warm; Absent rash *Routine Neurological Exam Neurological: Present alert and oriented X3 Assessment and Plan *Assessment and plan (1) Diarrhea: Status: Acute Qualifiers: Diarrhea type: presumed infectious Qualified Code(s): R19.7 - Diarrhea, unspecified Category: Medical Code(s): R19.7 - Diarrhea, unspecified (2) Acute hypokalemia: Status: Acute Category: Medical Code(s): E87.6 - Hypokalemia (3) Intraductal carcinoma of right breast: Status: Acute Category: Medical Code(s): D05.11 - Intraductal carcinoma in situ of right breast (4) Pulmonary embolism: Status: Acute Category: Medical Code(s): I26.99 - Other pulmonary embolism without acute cor pulmonale (5) Anxiety and depression: Status: Acute Category: Medical Code(s): F41.9 - Anxiety disorder, unspecified; F32.A - Depression, unspecified (6) GERD (gastroesophageal reflux disease): Status: Acute Category: Medical Code(s): K21.9 - Gastro-esophageal reflux disease without esophagitis (7) Hypertension: Status: Acute Category: Medical Code(s): I10 - Essential (primary) hypertension (8) Restless leg syndrome: Status: Acute Category: Medical Code(s): G25.81 - Restless legs syndrome Plan Meri Cole is 59-year-old female with a medical history significant for metastatic intraductal carcinoma stage IIIb of right breast s/p total mastectomy, chemoradiotherapy ([facility]) on maintenance immunotherapy, anxiety/depression, hypertension, GERD who presents with at least 3 weeks of poor p.o. tolerance, nausea and intermittent vomiting, abdominal pain, and watery diarrhea. Patient states oncologist recently changed her maintenance therapy, including dosing, about a month ago after which point she thinks symptoms began. She states she reached out to her oncologist who recommended keeping her appointment this coming . She initially had nausea with vomiting which has improved, but continues to have poor oral tolerance. Endorses 3 weeks of watery diarrhea, denies recent antibiotic use. Denies fever/chills, chest pain, shortness of breath, urinary symptoms. Workup in the ED significant for potassium 2.5, phosphorus 2.2, normal magnesium, CT abdomen showing mild colitis with mild biliary ductal dilatation with prior cholecystectomy, CTA chest showing lingular PE with evidence of RV strain RV/LV ratio of 1.0, and right-sided lung inflammation which patient states is known. Of note, patient recently got a second opinion regarding her breast cancer at [facility] who stated patient will likely have left-sided breast cancer as well. Given severe electrolyte abnormalities, intractable diarrhea, and poor oral tolerance Case discussed with ED provider and decision made to admit patient for the same. #Abdominal pain #Diarrhea #Colitis #Decreased oral tolerance #Hypokalemia #Hypophosphatemia ? Presents with 3 weeks of malaise, weakness, decreased oral tolerance, diarrhea, abdominal pain. Found to have colitis on CT, with severe electrolyte abnormalities. ? This is apparently in the setting of recent changes to her maintenance therapy including Verzenio, exemestane. Patient does not know exact changes that were made. ? Initial potassium 2.5, phosphorus 2.2. Magnesium normal. Replating with IV and oral. ? CT shows mild colitis, patient continues to have watery diarrhea. Suspicious for C. difficile in the setting of recent immunosuppression. ? Started IV Zosyn every 6 hours. ? Follow-up diarrhea panel. ? Follow-up morning potassium, phosphorus, CMP. ? Continuous cardiac telemetry. #Metastatic intraductal carcinoma stage IIIb #S/p left total mastectomy, chemoradiotherapy #Lingular pulmonary embolism #RV strain ? Follows with [facility] in [place] oncology. Has a follow-up appointment on , 02/04/2025. ? Finished chemotherapy in May 2024, radiation therapy in September 2024, and total mastectomy in June 2024. ? Apparently has metastatic cancer to surrounding lymph nodes. ? Currently taking Verzenio, exemestane. Hold these until above symptoms subside. ? Continue home dexamethasone 8 mg daily. ? CTA chest shows lingular pulmonary embolism with suggestion of RV strain. ? Started therapeutic Lovenox pending echo results for RV strain. ? Follow-up ECHO on Saturday. Consider thrombectomy if evidence of RV strain. Troponins normal so far. ? Follow-up lower extremity Doppler to rule out DVT. #Anxiety/depression ? Continue home Zyprexa. #Hypertension ? Hold home losartan for now. BP stable. #GERD ? Continue home PPI. #Restless leg syndrome ? Continue home Requip 0.25 mg nightly. Full code DVT prophylaxis: Therapeutic Lovenox as above
[2025-01-31] MEDS: LACTATED RINGERS 1000ML 1,000 ML 75 ML IV ×2 (04:42→09:03)
--- NOTE | 2025-01-31 04:54 | PC.NURSE ---
Pt AOx4. New admit to the floor. VSS. Med rec and physical assessment completed. Pt c/o some diarrhea. Receiving K+ replacement Iv currently. Resting in bed with eyes open. Respirations even and unlabored. Bed is low, locked, and call light is in reach.
[2025-01-31] MEDS: PIPERCILLIN/TAZO 3.375 GM in 0.9 % SODIUM CHLORIDE 50 ML IV ×4 (05:22→22:59)
[2025-01-31 05:31] LABS: Adenovirus F 40/41, stool Not Detected (NotDetected); Clostridium Difficile A/B, PCR Not Detected (NotDetected); Cyclospora Cayetanesis Not Detected (NotDetected); Plesimonas Shigalloides, PCR Not Detected (NotDetected); Salmonella, PCR Not Detected (NotDetected); Shiga-like toxin E coli Not Detected (NotDetected); Shigella Enterovasive E coli Not Detected (NotDetected); Vibrio, PCR Not Detected (NotDetected); Yersinia Entercolitica, PCR Not Detected (NotDetected)
[2025-01-31] MEDS: DEXAMETHASONE 4MG TABLET 8 MG PO (06:22)
[2025-01-31 07:24] LABS: Hematocrit 26.8 % (37.0-47.0); Immature Granulocytes % 0.8 %; Mean Corpuscular HGB Conc 32.8 g/dL (31.8-35.4); Mean Corpuscular Hemoglobin 29.7 pg (27.0-31.2); Mean Corpuscular Volume 90.5 fl (81-99); Nucleated Red Blood Cells % 0 %; Platelet Count 141 K/mm3 (142-424); Red Blood Count 2.96 M/mm3 (4.20-5.40); Red Cell Distribution Width-SD 46.9 fL; White Blood Count 4.7 K/mm3 (4.8-10.8)
[2025-01-31 07:47] LABS: Alanine Aminotransferase 10 U/L (12-78); Albumin Level 2.6 g/dl (3.5-5.0); Albumin/Globulin Ratio 1.0 (1.1-1.8); Alkaline Phosphatase 98 U/L (38-126); Anion Gap 9.1 mEq/L (5-15); Aspartate Amino Transferase 22 U/L (14-36); Bilirubin,Total 0.7 mg/dl (0.2-1.3); Blood Urea Nitrogen 12 mg/dl (7-17); Calcium 8.9 mg/dl (8.4-10.2); Carbon Dioxide 20 mmol/L (22.0-30.0); Chloride 113 mmol/L (98-107); Creatinine Clearance Estimated 83 mL/min (50-200); Creatinine,Serum 1.00 mg/dl (0.52-1.04); Estimated Glomerular Filt Rate 57 ml/min (>60); GFR (African American) 69 ML/MIN (>60); Globulin 2.6 g/dL (1.3-3.2); Glucose 93 mg/dl (74-100); Magnesium 1.5 mg/dl (1.6-2.3); Potassium 3.1 mmoL/L (3.5-5.1); Sodium 139 mmol/L (136-145); Total Protein,Serum 5.2 g/dl (6.3-8.2)
[2025-01-31 08:01] LABS: Phosphorous 3.1 mg/dl (2.5-4.5)
[2025-01-31 08:09] LABS: Hemoglobin 9.1 g/dL (12.2-16.2)
--- NOTE | 2025-01-31 08:50 | HMH.PHAINT1 ---
Pharmacy Intervention Comments: MEDICATION RECONCILIATION COMPLETED ON PATIENT USING EXTERNAL FILL HISTORY FROM PHARMACY, JACQUELIN REPORT, AND PATIENT'S OWN MEDS. -MEHNAZ VIDESD
[2025-01-31] MEDS: ACETAMINOPHEN 325MG TAB 650 MG PO (12:49)
--- OUTSIDE RECORDS SUMMARY | 2025-01-31 16:00 | XMS_ITS | Encounter Summary ---
Author Organization [place] [address] Care Team Providers Care Machine Edge Bander Name Role Phone Chetna Cedeno MD Primary Care Provider [phone] Arlyn Schmidt MD Unavailable [phone] Tacho Echavarria MD Unavailable [phone] Matt Ulrich MD Unavailable [phone] Eze Brock Unavailable Annette Walker Unavailable [phone] Batool Celis MD Unavailable [phone] Reason for Visit * Reason Onset Date Comments Symptom Call 01/15/2025 shakiness, light headed, cold chills, and breaking out in sweats Encounter Details Date Type Department Care Team (Late st Contact Info) Description 01/15/2025 Telephone [facility] Oncology [place], [place] [id number] Tacho Echavarria MD [address] [place] [id number] Symptom Call (shakiness, light headed, cold chills, and breaking out in sweats ) Social History Tobacco Use Types Packs/Day Years [...] from your doctor or pharmacy? Never 11/07/2023 [facility] Utilities Answer Date Recorded [...] Date Recorded PHQ-2 Total Score 5 07/07/2024 [facility] Occupat ional Health - Occupational Stress [...] any time in the past 12 m [facility], were you homeless or living in a nursing home (including now)? No 11/07/2023 [facility] IP Transportation Answer D ate Recorded In [...] Assessment Author No 12/06/2022 2:08 PM EDT AaliyahMacarena cuevas CCMSharonda * Because of a physical, mental or emotional condition, does this person have difficulty doing errands alone such as visiting a doctor's office or shopping? Answer Date of Assessment Author No 12/06/2022 2:08 PM EDT Doni Macarena Aiken ZEINA documented as of this encounter Mental Status * Because of a physical, mental or emotional condition, does this person have serious difficulty concentrating, remembering or making decisions? Answer Entry Date Author No 12/06/2022 2:08 PM EDT Marvbetty Macarena Aiken CCMSharonda documented in this encounter Miscellaneous Notes * Telephone Encounter - Tina Gonzáles RN - 01/15/2025 11:25 AM EDT Called and spoke with patient regarding symptom call. She denies any fever and constantly would check if she starts to have the chills. She also has not been around anyone who has been sick. Discussed with team and will have patient come in to be seen. Patient scheduled for 1:30 with BOAT JOINER and 1:15 for labs. * Telephone Encounter - Rianna Grady, Clerical Staff - 01/15/2025 11:00 AM EDT Medical Oncology Clinic Symptom Call: Yes Primary Oncologist: [place] Diagnoses: Current Treatment: Last date of Tx: Last appt and provider: 01/06/25 Next scheduled office visit: 02/04/25 Caller reports the patient has the following symptoms:shakiness, light headed, cold chills, and breaking out in sweats Symptoms started: 3 days Have you been exposed to COVID or tested for COVID within the last 48 hours:no Does the patient have a FEVER/what is it:no Has the patient had any recent surgeries:no Has the patient taken anything to help the symptoms:no MYCHART Photo: no What Location is the Patient seen at:[facility] Preferred call back number:[phone] Explained to the caller, if this is a medical emergency please call 911 or go to the nearest emergency room. documented in this encounter Plan of Treatment Upcoming Encounters Date Type Department Care Team (Late st Contact Info) Description 02/02/2025 11:20 AM EDT Telemedicine [facility] [address] [facility] [address] [place] [address] Samm Ledesma, BOAT JOINER [address] [facility] [address] [place], [place] [id number] 02/04/2025 11:00 AM EDT Appointment [facility] Women's Wellness [facility] [place] [address] Tacho Echavarria MD [address] [place] [address] Naya García PA-C [address] [place] [address] [address] [place] [address] 02/04/2025 2:00 PM EDT Appointment [place] [address] Tacho Echavarria MD [address] [place] [address] 02/04/2025 2:20 PM EDT Appointment [facility] [place], [place] [phone] Tacho Echavarria MD [address] [place] [address] 02/10/2025 10:30 AM EDT Office Visit [facility] [address] [place] [address] [address] [place] [address] Sin Tran MD [facility] [place] [address] 03/02/2025 11:40 AM ED[place] [address] [place] [address] [place] [address] [place] [address] 03/02/2025 12:45 PM EDT Procedure visit [facility] [address] [place], [place] [phone] Samm Ledesma, BOAT JOINER [address] [place], [place] [phone] 04/29/2025 9:15 AM EDT Appointment [place] [address] Batool Celis MD [address] [place] [address] [place] [address] documented as of this encounter Goals Goal Patient Goal Type Associated Problems Recent Progress Patient-Stated? Author Blood Pressure < 140/90 Blood Pressure 129/95(01/15 2:00 PM EDT) No Chetna Cedeno MD Breast [facility] Breast Health On track(2024 12:01 PM EST) No Jasmin Porter, RAUL Note: Patient acknowledges understanding of new diagnosis, plan of care, available resources and how to contact Nurse Navigator with any future questions or concerns. Breast [facility] Breast Health No Jasmin Porter, RAUL Note: Patient will be compliant with monthly SBE and is aware of who to contact for any unusual or concerning findings. Maintain a healthy diet, exercise regularly and maintain an ideal body weight General No Sanam Julio MA documented as of this encounter Results * (ABNORMAL) COMPREHENSIVE METABOLIC PANEL (01/15/2025 1:41 PM EDT) Sodium 140 136 - 145 mmol/L [facility] Potassium 4.0 3.5 - 5.0 mmol/L 01/15/2025 2:05 PM [facility] Chloride 107 98 - 107 mmol/L 01/15/2025 2:05 PM [facility] Total CO2 25 22 - 29 mmol/L 01/15/2025 2:05 PM [facility] Anion Gap 8 7 - 16 mmol/L 01/15/2025 2:05 PM [facility] Calcium 9.3 8.6 - 10.4 mg/dL 01/15/2025 2:05 PM [facility] Glucose Lvl 88 70 - 99 mg/dL 01/15/2025 2:05 PM [facility] BUN 13 6 - 20 mg/dL 01/15/2025 2:05 PM [facility] Creatinine 0.85 0.51 - 1.30 mg/dL 01/15/2025 2:05 PM [facility] Albumin 4.0 3.5 - 5.2 gm/dL 01/15/2025 2:05 PM [facility] Total Protein 6.7 6.4 - 8.3 gm/dL 01/15/2025 2:05 PM [facility] Bili Total 0.3 0.2 - 1.3 mg/dL 01/15/2025 2:05 PM [facility] ALT 8 <=41 U/L 01/15/2025 2:05 PM [facility] AST 14 <=40 U/L 01/15/2025 2:05 PM [facility] Alk Phos 124(H) 36 - 123 U/L 01/15/2025 2:05 PM [facility] eGFR (CKD-EPIcr 2020) 79 >=60 mL/min/1.7 3 m2 01/15/2025 2:05 PM [facility] Comment:Estimated GFR was ca lculated using the CKD-EPIcr (2020) equation refit without race. The equation is recommended by the National Kidney Foundation - [place] [employer] of Nephrology Task Force. Blood VENOUS BLOOD / Unknown Venipuncture / Unknown 01/15/2025 1:41 PM EDT 01/15/2025 1:44 PM EDT us Heydi Sorensen BOAT JOINER CHEMISTRY ORDERABLES Final Res ult [facility] [address] [place] [address] * (ABNORMAL) CBC WITH DIFF (01/15/2025 1:41 PM EDT) WBC 4.5 3.7 - 10.3 x10(3)/mc L 01/15/2025 1:49 PM EDT [facility] RBC 3.40(L) 3.90 - 5.20 x10(6)/mc L 01/15/2025 1:49 PM EDT [facility] Hgb 10.3(L) 11.2 - 15.7 g/dL 01/15/2025 1:49 PM EDT [facility] Hct 31.7(L) 34.0 - 45.0 % 01/15/2025 1:49 PM EDT [facility] MCV 93.2 80.0 - 100.0 fL 01/15/2025 1:49 PM EDT [facility] MCH 30.3 26.0 - 34.0 pg 01/15/2025 1:49 PM EDT [facility] MCHC 32.5 30.7 - 35.5 g/dL 01/15/2025 1:49 PM EDT [facility] RDW 14.7 <=14.9 % 01/15/2025 1:49 PM EDT [facility] Platelet 165 155 - 369 x10(3)/mc L 01/15/2025 1:49 PM EDT [facility] MPV 8.4(L) 8.8 - 12.5 fL 01/15/2025 1:49 PM EDT [facility] Neut # Prelim 2.9 1.6 - 6.1 x10(3)/mc L 01/15/2025 1:49 PM EDT [facility] Comment:Preliminary automate d absolute neutrophil count. Value may change if manual differential is indicated. Neut Percent 64.2 % 01/15/2025 1:49 PM EDT [facility] Comment:Neutrophils equals s egs plus bands Imm Gran% 0.2 % 01/15/2025 1:49 PM EDT [facility] Comment:Automated count of m etamyelocytes, myelocytes and promyelocytes. Lymph Percent 28.3 % 01/15/2025 1:49 PM EDT [facility] [place] Percent 5.3 % 01/15/2025 1:49 PM EDT [facility] Eos Percent 1.3 % 01/15/2025 1:49 PM EDT [facility] Baso Percent 0.7 % 01/15/2025 1:49 PM EDT [facility] Neut # 2.9 1.6 - 6.1 x10(3)/mc L 01/15/2025 1:49 PM EDT [facility] Comment:Neutrophils equals s egs plus bands IMMGRAN# 0.0 0.0 - 0.1 x10(3)/mc L 01/15/2025 1:49 PM EDT [facility] Comment:Automated count of m etamyelocytes, myelocytes and promyelocytes. An absolute IG <0.1 is reported as 0.0. Lymph # 1.3 1.2 - 3.9 x10(3)/mc L 01/15/2025 1:49 PM EDT [facility] [place] # 0.2(L) 0.3 - 0.9 x10(3)/mc L 01/15/2025 1:49 PM EDT [facility] Eos# 0.1 0.0 - 0.5 x10(3)/mc L 01/15/2025 1:49 PM EDT [facility] Baso # 0.0 0.0 - 0.1 x10(3)/mc L 01/15/2025 1:49 PM EDT [facility] Blood VENOUS BLOOD / Unknown Venipuncture / Unknown 01/15/2025 1:41 PM EDT 01/15/2025 1:44 PM EDT Heydi Sorensen BOAT JOINER HEMATOLOGY ORDERABLES Final Re sult [facility] [place], [place] [id number] documented in this encounter Visit Diagnoses Diagnosis Invasive ductal carcinoma of breast, female, right (HCC)- Primary Cold sweat Lightheaded Dizziness and giddiness Shakiness Abnormal involuntary movements documented in this encounter Additional Health Concerns Assessment Noted Time PHQ-9 Depression Total Score: 17 024 8:39 AM EST PHQ-2 Depression Total Score: 5 07/07/20 24 8:39 AM EST documented as of this encounter Care Teams Machine Edge Bander Relationship Specialty [place] [address] [place] [address] PCP - General 06/21/10 Arlyn Schmidt MD [address] [place], [place] [phone] Consulting Physician Internal Medicine-Endocrinology, Diabetes & Metabolism 11/28/20 Tacho Echavarria MD [address] [place] [address] Internal Medicine-Medical Oncology 11/12/23 Matt Ulrich MD 1 [place] [address] Surgery-Surgical Oncology 12/04/23 Eze Brock Pastoral Care 12/13/23 Annette Walker MSW Dialysis Tech 05/13/24 Batool Celis MD [address] [facility] [place] [address] Radiation Oncologist Radiology-Radiation Oncology 06/08/24 documented as of this encounter
--- OUTSIDE RECORDS SUMMARY | 2025-01-31 16:00 | XMS_ITS | Encounter Summary ---
Author Organization [place] [address] Care Team Providers Care Continuous Wave Operator Name Role Phone Chetna Cedeno MD Primary Care Provider [phone] Arlyn Schmidt MD Unavailable [phone] Tacho Echavarria MD Unavailable [phone] Matt Ulrich MD Unavailable [phone] Eze Brock Unavailable Annette Walker Unavailable [phone] Batool Celis MD Unavailable [phone] Encounter Details Date Type Department Care Team (Late st Contact Info) Description 01/13/[address] [facility] Physical Therapy [address] [place] [address] Social History Tobacco Use Types Packs/Day Years [...] doctor or pharmacy? Never 11/07/2023 [facility] Utilities Answer Date Recorded In [...] often do you attend chur ch or synagogue services? 1 to 4 times per year [...] Date Recorded PHQ-2 Total Score 5 07/07/2024 [facility] - Occupational [...] in a usp (including now)? No 11/07/2023 [facility] IP Transportation Answer D ate Recorded In [...] Macarena Marion CCMA documented in this encounter Miscellaneous Notes * Therapist Plan of Care - Shaunna Workman, PT - 01/13/2025 5:35 PM EDT Images from the original note were not included. Please sign to acknowledge agreement with this updated plan of care. Physical Therapy Reassessment/Progress Report/Treatment Note Patient Name: [...] to walk with no AD by then, [place] (but pt states that she was told this may have been a misdiagnosis), currently taking chemo pill, R mastectomy Jun 2024, radiation ended 09/25/24, chronic back issues with sciatica Physician: Jericho ESCOBAR Follow Up: 11/11/24 Evaluation Date: 10/30/24 Reassessment Due: 12/26/24 Primary Insurance: MEDICAID /[facility] [id number] [facility] Secondary Insurance: n/a Insurance Authorization: AMB REFERRAL TO PHYSICAL THERAPY Authorized (10/08/2024-01/28/2025) Visits Requested Visits Authorized Visits Completed Visits Scheduled -- Details Referral ID: [id number] Authorization Status Reason: Received Carrier Authorization Authorization Comments: -- Referred To: Shaunna Workman PT at [facility] PT Referred By: Tacho Echavarria MD [facility]: [facility] Referral Reasons: Specialty Services [...] other week Needs Assistance: No Understood: Yes 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 pt verbalized understanding of this again. joinery machinist // bars with unilat UE support [] [...] arm swing during gait [] NMR education joinery machinist // bars with no support with gait [...] up about 2 days ago. Access Code: [email or web address] URL: [email or web address] Date: 11/11/2024 Prepared by: Romana Bowman Exercises [...] will be Independent with HEP to improve longitudinal float operator health and reduce risk for injury. indbut [...] increase from 727 feet with RW to 8769-3048 feet with LRAD to improve gait elisha [...] away. Treatments to consist of Therapeutic exercise 99892, Neuromuscular re-education 85684, Manual soft tissue and/or joint mobilization 78842, Patient education, Therapeutic activity 67289, and Gait training 57486. Electronically signed by: Signed: Shaunna Workman PT Date: 01/13/2025 documented in this encounter Plan of Treatment Upcoming Encounters Date Type Department Care Team (Late st Contact Info) Description 02/02/2025 11:20 AM EDT Telemedicine [facility] [address] [facility] [address] [place] [address] Samm Ledesma, VIOLIN REPAIRER [address] [place] [address] 02/04/2025 11:[address] [facility] Women's Wellness [facility] [place] [address] Tacho Echavarria MD [address] [place] [address] Naya aGrcía PA-C [address] [place] [address] [address] [place] [address] 02/04/2025 2:00 PM EDT Appointment [facility] [place] [address] Tacho Echavarria MD [address] [place] [address] 02/04/2025 2:20 PM EDT Appointment [facility] [place] [address] Tacho Echavarria MD [address] [place] [address] 02/10/2025 10:30 AM EDT Office Visit [address] [place] [address] Sin Tran MD [facility] [place] [address] 03/02/2025 11:40 AM EDT Office Visit [facility]ULO MERRITT [address] [place] [address] [place] [address] [place] [address] 03/02/2025 12:45 PM EDT Procedure visit [facility] [address] [facility] [address] [place] [address] Samm Ledesma APRN [address] [place] [address] 04/29/2025 9:15 AM EDT Appointment [facility] [address] [place], [place] [id number] Batool Celis MD [address] [place] [address] [place] [address] documented as of this encounter Goals Goal Patient Goal Type Associated Problems Recent Progress Patient-Stated? Author Blood Pressure < 140/90 Blood Pressure 129/95(01/15 2:00 PM EDT) No Chetna Cedeno MD Breast [facility] Breast Health On track(2024 12:01 PM EST) No Jasmin Porter, RN Note: Patient acknowledges [...] documented as of this encounter Care Teams Continuous Wave Operator Relationship Specialty [place] [address] [place] [address] PCP - General 06/21/10 Arlyn Schmidt MD [address] [place] [address] Consulting Physician Internal Medicine-Endocrinology, Diabetes & Metabolism 11/28/20 Tacho Echavarria MD [address] [place] [id number] Internal Medicine-Medical Oncology 11/12/23 Matt Ulrich MD [address] [place] [id number] Surgery-Surgical Oncology 12/04/23 Eze Brock Pastoral Care 12/13/23 Annette Walker, PRODUCT SAFETY ASSOCIATE Chair Springer 05/13/24 Batool Celis MD 1 [facility] [address] Radiation Oncologist Radiology-Radiation Oncology 06/08/24 documented as of this encounter
--- OUTSIDE RECORDS SUMMARY | 2025-01-31 16:00 | XMS_ITS | Encounter Summary ---
Author Organization [place] [address] Care Team Providers Care Transition Nurse Name Role Phone Chetna Cedeno MD Primary Care Provider [phone] Arlyn Schmidt MD Unavailable [phone] Tacho Echavarria MD Unavailable [phone] Matt Ulrich MD Unavailable [phone] Eze Brock Unavailable Annette Walker Unavailable Batool Celis MD Unavailable [phone] Encounter Details Date Type Department Care Team (Late st Contact Info) Description 01/15/2025 Plan of Care Documentation [facility] Physical Therapy [address] [place] [address] Social History Tobacco Use Types [...] from your doctor or pharmacy? Never 11/07/2023 [facility] Utilities Answer Date Recorded In the [...] any clubs o r organizations such as worship groups, unions, fraternal or athletic groups, or [...] Date Recorded PHQ-2 Total Score 5 07/07/2024 [facility] - [...] time in the past [address] [facility], were you homeless or living in a residential (including now)? No 11/07/2023 [facility] IP Transportation Answer D ate Recorded [...] Macarena Marion CCMA documented in this encounter Plan of Treatment Upcoming Encounters Date Type Department Care Team (Late st Contact Info) Description 02/02/2025 11:20 AM EDT Telemedicine [facility] [address] [facility] [address] [place], [place] [id number] Samm Ledesma, MANAGER QA [address] [facility] [place], [place] [id number] 02/04/2025 11:00 AM EDT Appointment [facility] Women's Wellness [facility] [address] Tacho Echavarria MD [address] [place] [address] Naya García PA-C [address] [place] [address] [address] [place] [address] 02/04/2025 2:00 PM EDT Appointment [facility] [place] [address] Tacho Echavarria MD [address] [place] [address] 02/04/2025 2:20 PM EDT Appointment [facility] [place], [place] [phone] Tacho Echavarria MD [address] [place] [address] 02/10/2025 10:30 AM EDT Office Visit [facility] [address] [facility] [address] [place] [address] Sin Tran MD [address] [place] [address] 03/02/2025 11:40 AM EDT [place] [address] [place] [address] [place] [address] [place] [address] 03/02/2025 12:45 PM EDT Procedure visit [facility] [address] [place] [address] Samm Ledesma, MANAGER QA [address] [facility] [address] [place] [address] 04/29/2025 9:15 AM EDT Appointment [place] [place] [address] Batool Celis MD [address] [place] [address] [facility] [place], [place] [id number] documented as of this encounter Goals Goal [...] documented as of this encounter Care Teams Transition Nurse Relationship Specialty [place] [address] [place] [address] PCP - General 06/21/10 Arlyn Schmidt MD [address] [place], [place] [id number] Consulting Physician Internal Medicine-Endocrinology, Diabetes & Metabolism 11/28/20 Tacho Echavarria MD 1 [place] [address] Internal Medicine-Medical Oncology 11/12/23 Matt Ulrich MD 1 [place], [place] [id number] Surgery-Surgical Oncology 12/04/23 Eze Brock Pastoral Care 12/13/23 Annette Walker, ARACELI Community Mental Health Social Worker 05/13/24 Batool Celis MD 1 [facility] [place] [address] Radiation Oncologist Radiology-Radiation Oncology 06/08/24 documented as of this encounter
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
--- OUTSIDE RECORDS SUMMARY | 2025-01-31 16:00 | XMS_ITS | Encounter Summary ---
Author Organization [place] [address] Care Team Providers Care Civil Attorney Name Role Phone Chetna Cedeno MD Primary Care Provider [phone] Arlyn Schmidt MD Unavailable [phone] Tacho Echavarria MD Unavailable [phone] Matt Ulrich MD Unavailable [phone] Eze Brock Unavailable Cheryl Nair RN Unavailable [phone] Annette Walker STORE PERSON Unavailable [phone] Batool Celis MD Unavailable [phone] Encounter Details Date Type Department Care Team (Late st Contact Info) Description 09/11/2024 Lab Requisition [facility] [place] [address] Beata Kebede MD [address] [place] [address] Social History Tobacco Use Types Packs/Day Years [...] your doctor or pharmacy? Never 11/07/2023 [facility] Utilities Answer Date Recorded In [...] often do you attend chur ch or latter day services? 1 to 4 times per year [...] Date Recorded PHQ-2 Total Score 5 07/07/2024 [facility] - Occupational [...] in a halfway (including now)? No 11/07/2023 [facility] IP Transportation [...] EDT Telemedicine [facility] [address] [facility] [address] [place] [address] Samm Ledesma APRN [address] [facility] [address] [place], [place] [id number] 02/04/2025 11:00 AM EDT Appointment [facility] Women's Wellness [facility] [place] [address] Tacho Echavarria MD [address] [place] [address] Naya García PA-C [address] [place] [address] [address] [place] [address] 02/04/2025 2:00 PM EDT Appointment [facility] [place], [place] [id number] Tacho Echavarria MD [address] [place] [address] [id number] 02/04/2025 2:20 PM EDT Appointment [facility] Medical Oncology [place], [place] [id number] Tacho Echavarria MD [address] [place] [address] [id number] 02/10/2025 10:30 AM EDT Office Visit [address] [place] [address] Sin Tran MD [address] [facility] [place] [address] 03/02/2025 11:40 AM ED[place] [address] [place] [address] [place] [address] [place] [address] 03/02/2025 12:45 PM EDT Procedure visit [facility] [address] [place] [address] Samm Ledesma APRN [address] [facility] [address] [place] [address] 04/29/2025 9:15 AM EDT Appointment [facility] [place] [address] Batool Celis MD [address] [place] [address] [place] [address] documented as of this encounter [...] Procedure Name Priority Date/Time Associated Diagnosis Comments MISC AP TEST Routine 09/11/2024 1:13 PM EST documented in this encounter Results * MISC AP TEST (09/11/2024 1:13 PM EST) CASE REPORT Surgical Pathology Report Case: [id number] Authorizing Provider: Beata Kebede MD Collected: 09/11/20241312 Ordering Location: [facility] Received: 09/11/2024 1313 Pathologist: Diane Ellis MD Specimen: Breast, Request for cases [id number], [id number] slides to [facility]. 09/15/2024 12:14 PM EDT [facility] FINAL DIAGNOSIS Results will be scanned in this case as an addendum. 09/15/2024 12:14 PM EDT [facility] at 1338 EST EMBEDDED IMAGES 09/15/2024 12:14 PM EDT [facility] ADDENDUM Refer to Scanned Surgical Pathology Report for [id number] & [id number]. 09/15/2024 12:14 PM EDT [facility] Addendum electronically signed by Diane Ellis MD on 09/15/2024 at 1214 EDT Tissue BREAST STRUCTURE / Unknown 09/11/2024 1:13 PM EST 09/11/2024 1:13 PM EST us Beata Kebede MD PATHOLOGY ORDERABLES Edited R esult - Final [facility] [address] [place] [address] documented in this encounter Visit Diagnoses Not on filedocumented in this encounter Additional Health Concerns Infection Onset Date Last Indicated Resolved Time COVID-19 09/04/2024 09/04/2024 09/24/2024 10:1 2 PM EDT Assessment Noted Time PHQ-9 Depression Total Score: 17 024 8:39 AM EST PHQ-2 Depression Total Score: 5 07/07/20 24 8:39 AM EST documented as of this encounter Care Teams Civil Attorney Relationship Specialty [place] [address] [place] [address] PCP - General 06/21/10 Arlyn Schmidt MD [address] [place], [place] [id number] Consulting Physician Internal Medicine-Endocrinology , Diabetes & Metabolism 11/28/20 Tacho Echavarria MD [address] [place], [place] [address] Internal Medicine-Medical Oncology 11/12/23 Matt Ulrich MD 1 [place] [address] Surgery-Surgical Oncology 12/04/23 Eze Brock Pastoral Care 12/13/23 Cheryl Nair, RN Oncology Nurse Navigator 03/25/2412/13 Annette Walker MSW Employment Manager 05/13/24 Batool Celis MD [address] [facility] [place] [address] Radiation Oncologist Radiology-Radiation Oncology 06/08/24 documented as of this encounter
--- OUTSIDE RECORDS SUMMARY | 2025-01-31 16:00 | XMS_ITS | Encounter Summary ---
Author Organization [place] [address] Care Team Providers Care Veneer Cutter Name Role Phone Chetna Cedeno MD Primary Care Provider [phone] Arlyn Schmidt MD Unavailable [phone] Tacho Echavarria MD Unavailable [phone] Matt Ulrich MD Unavailable [phone] Eze Brock Unavailable Annette Walker Unavailable [phone] Batool Celis MD Unavailable [phone] Encounter Details Date Type Department Care Team (Late st Contact Info) Description 01/15/2025 Plan of Care Documentation [facility] Physical Therapy [address] [place] [address] Social History Tobacco Use Types [...] from your doctor or pharmacy? Never 11/07/2023 [facility] Utilities Answer Date Recorded In the [...] often do you attend chur ch or worship services? 1 to 4 times per year 11/07/2023 Do you belong to any clubs o r organizations such as faith groups, unions, fraternal or athletic groups, or [...] time in the past 12 [address] [place], were you homeless or living in a fpc (including now)? No 11/07/2023 [facility] IP Transportation Answer D ate Recorded [...] [address] [facility] [address] [place], [place] [id number] Samm Ledesma, ENERGY EFFICIENCY ENGINEER [address] [facility] [address] [place], [place] [phone] 02/04/2025 11:00 AM EDT Appointment [facility] Women's Wellness [facility] [place] [address] Tacho Echavarria MD [address] [place] [address] Naya García PA-C [address] [place] [address] [address] [place] [address] 02/04/2025 2:00 PM EDT Appointment [place] [address] Tacho Echavarria MD [address] [place] [address] 02/04/2025 2:20 PM EDT Appointment [facility] Medical Oncology [place], [place] [phone] Tacho Echavarria MD [address] [place] [address] 02/10/2025 10:30 AM EDT Office Visit [facility] [address] [facility] [address] [place] [address] Sin Tran MD [address] [place] [address] 03/02/2025 11:40 AM ED[place] [address] [place] [address] [place] [address] [place] [address] 03/02/2025 12:45 PM EDT Procedure visit [facility] [address] [place] [address] Samm Ledesma, ENERGY EFFICIENCY ENGINEER [address] [facility] [address] [place] [address] 04/29/2025 9:15 AM EDT Appointment [facility] [place] [address] Batool Celis MD [address] [place] [address] [facility] [place], [place] [id number] documented as of this encounter Goals Goal [...] documented as of this encounter Care Teams Veneer Cutter Relationship Specialty [place] [address] [place] [phone] PCP - General 06/21/10 Arlyn Schmidt MD [address] [place], [place] [phone] Consulting Physician Internal Medicine-Endocrinology, Diabetes & Metabolism 11/28/20 Tacho Echavarria MD [address] [place] [address] Internal Medicine-Medical Oncology 11/12/23 Matt Ulrich MD 1 [place], [place] [id number] Surgery-Surgical Oncology 12/04/23 Eze Brock Pastoral Care 12/13/23 Annette Walker, ARACELI Utility Mechanic Supervisor 05/13/24 Batool Celis MD [address] [facility] [place] [address] Radiation Oncologist Radiology-Radiation Oncology 06/08/24 documented as of this encounter
--- OUTSIDE RECORDS SUMMARY | 2025-01-31 16:00 | XMS_ITS | Encounter Summary ---
Author [place] [address] Care Team Providers Care Cloth Spreader Name Role Phone Chetna Cedeno MD Primary Care Provider [phone] Arlyn Schmidt MD Unavailable [phone] Tacho Echavarria MD Unavailable [phone] Matt Ulrich MD Unavailable [phone] Eze Brock Unavailable Annette Walker Unavailable [phone] Batool Celis MD Unavailable [phone] Reason for Visit * Reason Comments Medication Refill Encounter Details Date Type Department Care Team (Late st Contact Info) Description 01/14/2025 Refill [facility] Medical Oncology [place], [place] [id number] Tacho Echavarria MD [address] [place] [address] [id number] Medication Refill Social History Tobacco Use Types Packs/Day Years [...] often do you attend chur ch or roman catholic services? 1 to 4 times per [...] Date Recorded PHQ-2 Total Score 5 07/07/2024 [facility] of Occupat ional Health - Occupational [...] health care facility (including now)? No 11/07/2023 [facility] IP Transportation Answer D ate Recorded [...] Macarena Marion CCMA documented in this encounter Ordered Prescriptions Prescription Sig Dispense Quantity Refills Last Filled Start Date End Date DULoxetine (CYMBALTA) 30 mg Oral Capsule, Delayed Release(E.C.)Indic ations:Reactive depression Take 1 Capsule by mouth daily. 30 Capsule 1 01/15/2025 2:53 PM EDT 01/15/2025 documented in this encounter Miscellaneous Notes * Telephone Encounter - Tina Gonzáles RN - 01/15/2025 9:56 AM EDT Received refill request for cymbalta for pt. Reviewed chart; pt has f/u appt on 02/04. Last RX was sent on 10/28/2024 with 1 refills, so refill is appropriate. Last office note on 01/06/2025 states: will start Cymbalta 30mg po daily and stat referral to Psych MD. Escript for cymbalta sent to pt's pharmacy. documented in this encounter Plan of Treatment Upcoming Encounters Date Type Department Care Team (Late st Contact Info) Description 02/02/2025 11:20 AM EDT Telemedicine [facility] [address] [facility] [address] [place] [address] Samm Ledesma, WOOD MOLDER [address] [address] [facility] [address] [place] [address] 02/04/2025 11:00 AM EDT Appointment [facility] Women's Wellness [facility] [place] [address] Tacho Echavarria MD [address] [place] [address] Naya García PA-C [address] [facility] [address] [place] [address] 02/04/2025 2:00 PM EDT Appointment [place] [address] Tacho Echavarria MD 1 [place] [address] 02/04/2025 2:20 PM EDT [facility]ointment [facility] [place] [address] Tacho Echavarria MD 1 [place] [address] 02/10/2025 10:30 AM EDT Office Visit [address] [place] [address] Sin Tran MD [address] [place] [address] 03/02/2025 11:40 AM EDT Office Visit [facility]UL[facility] Mahmood [address] [place] [address] [place] [address] [place] [address] 03/02/2025 12:45 PM EDT Procedure visit [facility] [address] [facility] [address] [place] [address] Samm Ledesma APRN [address] [facility] [address] [facility] [address] [place] [address] 04/29/2025 9:15 AM EDT Appointment [place] [address] Batool Celis MD 1 [facility] [place] [address] documented as of this encounter Goals Goal Patient Goal Type Associated Problems Recent Progress Patient-Stated? Author Blood Pressure < 140/90 Blood Pressure 129/95(01/15 2:00 PM EDT) No Chetna Cedeno MD Breast [facility] Breast Health On track(2024 12:01 PM EST) No Jasmin Porter, RAUL Note: Patient acknowledges understanding of new diagnosis, plan of care, available resources and how to contact Nurse Navigator with any future questions or concerns. Breast [facility] Breast [facility] No Jasmin Porter, RAUL Note: Patient will be compliant with monthly SBE and is aware of who to contact for any unusual or concerning findings. Maintain a healthy diet, exercise regularly and maintain an ideal body weight General Sanam Champion MA documented as of this encounter Visit Diagnoses Diagnosis Reactive depression Dysthymic disorder documented in this encounter Discontinued Medications Medication Sig Discontinue Reason Start Date End Da te DULoxetine (CYMBALTA) 30 mg Oral Capsule, Delayed Release(E.C.)Indications :Reactive depression Take 1 Capsule by mouth daily. Reorder 10/28/2024 01/14/2025 documented as of this encounter Additional Health Concerns Assessment Noted Time PHQ-9 Depression Total Score: 17 024 8:39 AM EST PHQ-2 Depression Total Score: 5 07/07/20 24 8:39 AM EST documented as of this encounter Care Teams Cloth Spreader Relationship Specialty [place] [address] [place] [address] PCP - General 06/21/10 Arlyn Schmidt MD [address] [place] [address] Consulting Physician Internal Medicine-Endocrinology, Diabetes & Metabolism 11/28/20 Tacho Echavarria MD 1 [place] [phone] Internal Medicine-Medical Oncology 11/12/23 Matt Ulrich MD 1 [place] [id number] Surgery-Surgical Oncology 12/04/23 Eze Brock Pastoral Care 12/13/23 Annette Walker, CAR REFINISHER Software Packaging Engineer 05/13/24 Batool Celis MD 1 [facility] [place] [address] Radiation Oncologist Radiology-Radiation Oncology 06/08/24 documented as of this encounter
--- OUTSIDE RECORDS SUMMARY | 2025-01-31 16:00 | XMS_ITS | Encounter Summary ---
Author Organization [place] [address] Care Team Providers Care Clinical Education Assistant Name Role Phone Chetna Cedeno MD Primary Care Provider [phone] Arlyn Schmidt MD Unavailable [phone] Tacho Echavarria MD Unavailable [phone] Matt Ulrich MD Unavailable [phone] Eze Brock Unavailable Annette Walker Unavailable [phone] Batool Celis MD Unavailable [phone] Reason for Visit * Reason Comments Medication Refill Encounter Details Date Type Department Care Team (Late st Contact Info) Description 01/15/2025 Refill [facility] [place], [place] [phone] Tacho Echavarria MD [address] [place] [address] [phone] Medication Refill Social History Tobacco Use Types [...] often do you attend chur ch or bahai services? 1 to 4 times per year [...] Date Recorded PHQ-2 Total Score 5 07/07/2024 [facility] of Occupat ional Health - Occupational [...] any time in the past 12 m [facility], were you homeless or living in a senior care (including now)? No 11/07/2023 [facility] IP Transportation Answer D [...] Refills Last Filled Start Date End Date lidocaine-prilocai ne (EMLA) Top CreamIndications:I nvasive ductal carcinoma of breast, female, right (HCC) APPLY DIME SIZE AMOUNT TO PORT AREA 30 MINUTES PRIOR TO PORT ACCESS. 30 g 1 01/18/2025 documented in this encounter Plan of Treatment Upcoming Encounters Date Type Department Care Team (Late st Contact Info) Description 02/02/2025 11:20 AM EDT Telemedicine [facility] [address] [facility] [address] [place] [address] Samm Ledesma APRN [address] [facility] [address] [place] [address] 02/04/2025 11:00 AM EDT Appointment [facility] [place] [address] Tacho Echavarria MD [address] [place] [address] Naya García PA-C [address] [place] [address] 254 [place] [address] 02/04/2025 2:00 PM EDT Appointment [facility] [place], [place] [phone] Tacho Echavarria MD [address] [place] [address] 02/04/2025 2:20 PM EDT Appointment [facility] On[facility] [place], [place] [phone] Tacho Echavarria MD 1 [place], [place] [phone] 02/10/2025 10:30 AM EDT Office Visit [facility] [address] [facility] [address] [place] [address] Sin Tran MD [address] [place] [address] 03/02/2025 11:40 AM EDT Office Visit [facility]ULO Timoteo [address] [place] [address] [place] [address] [place] [address] 03/02/2025 12:45 PM EDT Procedure visit [facility] [address] [facility] [address] [place] [address] Samm Ledesma, CAR SALTER [address] [facility] [address] [place] [address] 04/29/2025 9:15 AM EDT Appointment [facility] [place] [address] Batool Celis MD 1 [facility] [place], [place] [phone] documented as of this encounter Goals Goal [...] future questions or concerns. Breast [facility] Breast Health Jasmin Rodriguez RN Note: Patient will be compliant with monthly SBE and is aware of who to contact for any unusual or concerning findings. Maintain a healthy diet, exercise regularly and maintain an ideal body weight General Sanam Champion MA documented as of this encounter Visit Diagnoses Diagnosis Invasive ductal carcinoma of breast, female, right (HCC) documented in this encounter Discontinued Medications Medication Sig Discontinue Reason Start Date End Da te lidocaine-prilocaine (EMLA) Top CreamIndications:Invasiv e ductal carcinoma of breast, female, right (HCC) Apply dime size amount to port area 30 minutes prior to port access. 07/28/2024 01/18/2025 documented as of this encounter Additional Health Concerns Assessment Noted Time PHQ-9 Depression Total Score: 17 024 8:39 AM EST PHQ-2 Depression Total Score: 5 07/07/20 24 8:39 AM EST documented as of this encounter Care Teams Clinical Education Assistant Relationship Specialty [place] [address] [place] [address] PCP - General 06/21/10 Arlyn Schmidt MD [address] [place] [address] Consulting Physician Internal Medicine-Endocrinology, Diabetes & Metabolism 11/28/20 Tacho Echavarria MD 1 [place], [place] [phone] Internal Medicine-Medical Oncology 11/12/23 Matt Ulrich MD 1 [place] [address] Surgery-Surgical Oncology 12/04/23 Eze Brock Pastoral Care 12/13/23 Aaron Annette, REVIEW SCHEDULING COORDINATOR Coordinator Of Genetic Services 05/13/24 Batool Celis MD 1 [facility] [place] [address] Radiation Oncologist Radiology-Radiation Oncology 06/08/24 documented as of this encounter
--- OUTSIDE RECORDS SUMMARY | 2025-01-31 16:00 | XMS_ITS | Encounter Summary ---
Author Organization [place] [address] Care Team Providers Care Speech And Language Specialist Name Role Phone Chetna Cedeno MD Primary Care Provider [phone] Arlyn Schmidt MD Unavailable [phone] Tacho Echavarria MD Unavailable [phone] Matt Ulrich MD Unavailable [phone] Eze Brock Unavailable Annette Walker Unavailable [phone] Batool Celis MD Unavailable [phone] Reason for Visit * Reason Comments Pharmacy Migraine Medication Management Ubrelvy Encounter Details Date Type Department Care Team (Latest Contact Info) Description 01/15/2025 Specialty Pharmacy [facility] [address] [place] [address] Annamarie Mark CPhT Pharmacy Migraine Medication Management (Ubrelvy) Social History Tobacco Use Types Packs/Day Years [...] from your doctor or pharmacy? Never 11/07/2023 [facility] Utilities Answer Date Recorded In the past 12 months has th e electric, gas, oil, or water [employer] threatened to shut off services in your [...] any clubs o r organizations such as hinduism groups, unions, fraternal or athletic groups, or [...] Date Recorded PHQ-2 Total Score 5 07/07/2024 [facility] of Occupat ional Health - Occupational Stress [...] were you homeless or living in a fci (including now)? No 11/07/2023 [facility] IP Transportation Answer D ate Recorded [...] 2:08 PM OBEDT Macarena Marion CCMA * Because of a [...] Macarena Marion CCMA documented in this encounter Progress Notes * Annamarie Mark CPhT - 01/15/2025 9:01 AM EDT Specialty Pharmacy MyChart request El Devorah Cole requested a refill of Ubrelvy via [employer]. [employer] message was sent in response with appropriate questionnaire. Will f/u in 2 business days. documented in this encounter Plan of Treatment Upcoming Encounters Date Type Department Care Team (Late st Contact Info) Description 02/02/2025 11:20 AM EDT Telemedicine [facility] [address] [facility] [address] [place], [place] [phone] Samm Ledesma, NAIL TECH [address] [facility] [address] [place], [place] [phone] 02/04/2025 11:[address] [facility] Women's Wellness [facility] [place] [address] Tacho Echavarria MD [address] [place] [address] Naya García PA-C [address] [place] [address] [address] [place], [place] 1108517 02/04/2025 2:00 PM EDT Appointment [facility] [place], [place] 00[address] Tacho Echavarria MD [address] [place] [address] [phone] 02/04/2025 2:20 PM EDT Appointment [facility] [place] [address] Tacho Echavarria MD [address] [place] [address] [id number] 02/10/2025 10:30 AM EDT Office Visit [facility] [address] [place] [address] [address] [place] [address] Sin Tran MD [address] [place] [address] 03/02/2025 11:40 AM EDT Office Visit [facility]ULO Timoteo [address] [place] [address] [place] [address] [place] [address] 03/02/2025 12:45 PM EDT Procedure visit [facility] [address] [place] [address] Samm Ledesma, NAIL TECH [address] [facility] [address] [place] [address] 04/29/2025 9:15 AM EDT Appointment [facility] RAD ONC [place], [place] [phone] Batool Celis MD [address] [place] [address] CANCER CARE [place], [place] [phone] documented as of this encounter Goals Goal [...] or concerns. Breast Health Breast Health Jasmin Rodriguez, RAUL Note: Patient will be [...] documented as of this encounter Care Teams Speech And Language Specialist Relationship Specialty Start [place] [address] [place] [address] PCP - General 06/21/10 Arlyn Schmidt MD [address] [place] [address] Consulting Physician Internal Medicine-Endocrinology, Diabetes & Metabolism 11/28/20 Tacho Echavarria MD 1 [place] [address] Internal Medicine-Medical Oncology 11/12/23 Matt Ulrich MD 1 [place] [address] Surgery-Surgical Oncology 12/04/23 Eze Brock Pastoral Care 12/13/23 Annette Walker MSW Director Of Student Life 05/13/24 Batool Celis MD [address] [place] [address] [place] [address] Radiation Oncologist Radiology-Radiation Oncology 06/08/24 documented as of this encounter
--- OUTSIDE RECORDS SUMMARY | 2025-01-31 16:01 | XMS_ITS | Encounter Summary ---
Author Organization [place] [address] Care Team Providers Care Supervisor Stone Name Role Phone Chetna Cedeno MD Primary Care Provider [phone] Arlyn Schmidt MD Unavailable [phone] Tacho Echavarria MD Unavailable [phone] Matt Ulrich MD Unavailable [phone] Eze Brock Unavailable Annette Walker Unavailable [phone] Batool Celis MD Unavailable [phone] Encounter Details Date Type Department Care Team (Late st Contact Info) Description 12/29/2024 Telephone [facility] Medical Oncology [place], [place] [phone] Tacho Echavarria MD [address] [place] [address] [id number] Social History Tobacco Use Types Packs/Day Years [...] Never 11/07/2023 [facility] Utilities Answer Date Recorded In the past [...] any clubs o r organizations such as caodaism groups, unions, fraternal or athletic groups, or [...] Date Recorded PHQ-2 Total Score 5 07/07/2024 [facility] [place] of Occupat ional Health - Occupational Stress [...] in a intermediate (including now)? No 11/07/2023 [facility] IP Transportation Answer D ate Recorded In [...] encounter Miscellaneous Notes * Telephone Encounter - Rosana Gupta RN - 12/29/2024 10:54 AM EDT Order placed for [facility] blood test. * Telephone Encounter - Rosana Gupta RN - 12/29/2024 10:53 AM EDT ----- Message from Osvaldo sent at 12/29/2024 10:42 AM EDT ----- Regarding: RE: PGx Sample Failure That would be great! It'll just need to be drawn in a lavender tube and then [facility] is shipping us the other necessary supplies to ship it back to them. We spoke with the lab to make sure this is okay since we don't normally do blood samples for this test. They just asked if you could place a lab misc. test order and then I will get them the other supplies, then I think we should be good! Osvaldo Tran ----- Message ----- From: Rosana Gupta RN Sent: 12/28/2024 9:40 AM EDT To: Osvaldo Johnson, Clerical Staff Subject: RE: PGx Sample Failure Ama Riley, I can have this drawn at her January appt, but what box do we use? Rosana Tran RN ----- Message ----- From: Osvaldo Johnson, Clerical Staff Sent: 12/28/2024 9:19 AM EDT To: Rosana Gupta RN Subject: PGx Sample Failure El Wayne! This patient's PGx sample has failed again. The lab is recommending that this might be patient where we need to run a blood sample instead of the cheek swab. I also read in the chart thatthere might be some transportation issues with getting to a lab. What do you think would be best solution here? Happy to accommodate/help however I can! Thanks, Osvaldo Johnson PGx Navigator documented in this encounter Plan of Treatment Upcoming Encounters Date Type Department Care Team (Late st Contact Info) Description 02/02/2025 11:20 AM EDT Telemedicine [facility] [address] [facility] [address] [place] [address] Samm Ledesma, FILM RECORDIST [address] [address] [place], [place] [address] 02/04/2025 11:00 AM EDT Appointment [facility] Women's Wellness [facility] [place] [address] Tacho Echavarria MD [address] [place] [address] Naya García PA-C [address] [place] [address] 254 [place] [address] 02/04/2025 2:00 PM EDT Appointment [facility] [place], [place] [phone] Tacho Echavarria MD [address] [place] [address] [id number] 02/04/2025 2:20 PM EDT Appointment [facility] Medical Oncology [place], [place] [phone] Tacho Echavarria MD [address] [place] [address] [id number] 02/10/2025 10:30 AM EDT Office Visit [address] [place] [address] Sin Tran MD [address] [place] [address] 03/02/2025 11:40 AM EDT Office Visit [facility] [address] [place] [address] [place] [address] [place] [address] 03/02/2025 12:45 PM EDT Procedure visit [facility] [address] [facility] [address] [place] [address] Samm Ledesma APRN [address] [facility] [address] [place] [address] 04/29/2025 9:15 AM EDT Appointment [facility] RAD ONC [place], [place] [phone] Batool Celis MD [address] [place] [address] [facility]ER [facility] [place], [place] [phone] documented as of this encounter Goals Goal [...] documented as of this encounter Results * MISCELLANEOUS LAB (01/06/2025 1:13 PM EDT) MISC COMMENT [place] 01/07/2025 7:35 AM EDT [facility] Blood VENOUS STRUCTURE / Unknown Port / Unknown 01/06/2025 1:13 PM EDT 01/07/2025 7:31 AM EDT Tacho Echavarria MD HEMATOLOGY ORDERABLES Final Result [facility] 1 [place] [address] documented in this encounter Visit Diagnoses Diagnosis 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)- Primary Acquired lymphedema Other lymphedema Invasive ductal carcinoma of breast, female, right (HCC) Malignant neoplasm of right female breast, unspecified estrogen receptor status, unspecified site of breast (HCC) Anxiety about treatment Reactive depression Dysthymic disorder Myalgia, unspecified site documented in this encounter Additional Health Concerns Assessment Noted Time PHQ-9 Depression Total Score: 17 024 8:39 AM EST PHQ-2 Depression Total Score: 5 07/07/20 24 8:39 AM EST documented as of this encounter Care Teams Supervisor Stone Relationship Specialty Start [place] [address] [place] [id number] PCP - General 06/21/10 Arlyn Schmidt MD [facility] [place] [address] Consulting Physician Internal Medicine-Endocrinology, Diabetes & Metabolism 11/28/20 Tacho Echavarria MD 1 [place] [address] Internal Medicine-Medical Oncology 11/12/23 Matt Ulrich MD [address] [place] [address] Surgery-Surgical Oncology 12/04/23 Eze Brock Pastoral Care 12/13/23 Annette Walker MSW Bar Machine Operator Production 05/13/24 Batool Celis MD [address] [place] [address] [place] [address] Radiation Oncologist Radiology-Radiation Oncology 06/08/24 documented as of this encounter
--- OUTSIDE RECORDS SUMMARY | 2025-01-31 16:01 | XMS_ITS | Encounter Summary ---
Author Organization [place] [address] Care Team Providers Care Field Laborer Name Role Phone Chetna Cedeno MD Primary Care Provider [phone] Arlyn Schmidt MD Unavailable [phone] Tacho Echavarria MD Unavailable [phone] Matt Ulrich MD Unavailable [phone] Eze Brock Unavailable Annette Walker Unavailable [phone] Batool Celis MD Unavailable [phone] Reason for Visit * Reason Onset Date Comments Symptom Call 01/29/2025 Diarrhea, body a ches, vomiting Encounter Details Date Type Department Care Team (Late st Contact Info) Description 01/29/2025 Telephone Cancer Care Medical Oncology [place], [place] [id number] Tacho Echavarria MD [address] [place] [address] [id number] Symptom Call (Diarrhea, body aches, vomiting) Social History Tobacco Use Types Packs/Day Years [...] doctor or pharmacy? Never 11/07/2023 [facility] Utilities Answer Date Recorded In the [...] any clubs o r organizations such as roman catholic groups, unions, fraternal or athletic groups, [...] Date Recorded PHQ-2 Total Score 5 07/07/2024 [facility] [place] of Occupat ional Health - Occupational Stress [...] were you homeless or living in a penitentiary (including now)? No 11/07/2023 [facility] IP Transportation Answer D ate [...] Assessment Author No 12/06/2022 2:08 PM EDT Macaerna Marino CCMA documented as of this encounter Mental Status * Because of a physical, mental or emotional condition, does this person have serious difficulty concentrating, remembering or making decisions? Answer Entry Date Author No 12/06/2022 2:08 PM EDT Macarena Marion CCMA documented in this encounter Miscellaneous Notes * Telephone Encounter - Yin Velez RN - 01/29/2025 3:30 PM EDT Called and spoke with El. States diarrhea past week. 5 episodes today. Taken 2 tabs Imodium. Discussed taking another tablet with every episode up to 8 tabs/day. Reports she is lethargic, sleeping all the time. No fevers. No sick contacts. Lethargic and can't keep anything. No relief w/ PRN meds. Tried to eat cereal yesterday and vomited. Drinking some fluids but not much, feels dehydrated. Discussed going to local ER, she recently moved 1.5 hrs away. Does not feel like she can make it all the way to [facility] without being sick. She will call friend Osvaldo to see if she can take her to ER. States 911 is not an [place] Encouraged her to have friend Osvaldo help her call squad if she is unable to bring her in. No further needs. * Telephone Encounter - Meera Barrientos, Clerical Staff - 01/29/2025 3:13 PM EDT Medical Oncology Clinic Symptom Call: Yes Primary Oncologist: Dr Echavarria Diagnoses: Current Treatment: Last date of Tx: Last appt and provider: 01/15Jeanette Next scheduled office visit: 02/04 Caller reports the patient has the following symptoms:Patient is expierencing diarrhea, and she feels like her throat is swollen. She said that she can't eat or drink. When she tries to drink she starts throwing up. She is lethargic sleeping for the last 4 days, and has lost 10 pounds since 01/06. She said that she feels dehydrated and is aching all over Symptoms started (date/time):01/18 Have you been exposed to COVID or tested for COVID within the last 48 hours:No Does the patient have a FEVER/what is it:No Has the patient had any recent surgeries:No Has the patient taken anything to help the symptoms:Anti nausea, imodium MYCHART Photo (Y, N, N/A): NO What Location is the Patient seen at:[facility] Preferred call back number:[phone] RN is aware documented in this encounter Plan of Treatment Upcoming Encounters Date Type Department Care Team (Late st Contact Info) Description 02/02/2025 11:20 AM EDT Telemedicine [facility] [address] [facility] [address] [place] [address] Samm Ledesma, LEYLA [address] [facility] [address] [place] [address] 02/04/2025 11:00 AM EDT Appointment [facility] Women's Wellness [facility] [place] [address] Tacho Echavarria MD [address] [place] [address] Naya García PA-C [address] [place] [address] [address] [place] [address] 02/04/2025 2:00 PM EDT Appointment [facility] [place] [address] Tacho Echavarria MD [address] [place] [address] 02/04/2025 2:20 PM EDT Appointment [facility] [place] [address] Tacho Echavarria MD [address] [place] [address] [id number] 02/10/2025 10:30 AM EDT Office Visit [facility] [address] [facility] [address] [place] [address] Sin Tran MD [address] [place] [address] 03/02/2025 11:40 AM EDT Office Visit [facility] [address] [place] [address] [place] [address] [place] [address] 03/02/2025 12:45 PM EDT Procedure visit [facility] [address] [place] [address] Samm Ledesma, LEYLA [address] [place] [address] 04/29/2025 9:15 AM EDT Appointment [facility] RAD ONC [place], [place] [phone] Batool Celis MD [address] [place] [address] CANCER CARE [place], [place] [id number] documented as of this encounter Goals Goal [...] documented as of this encounter Care Teams Field Laborer Relationship Specialty [place] [address] [place] [address] PCP - General 06/21/10 Arlyn Schmidt MD [address] [place] [address] Consulting Physician Internal Medicine-Endocrinology, Diabetes & Metabolism 11/28/20 Tacho Echavarria MD 1 [place] [address] Internal Medicine-Medical Oncology 11/12/23 Matt Ulrich MD 1 [place] [address] Surgery-Surgical Oncology 12/04/23 Eze Brock Pastoral Care 12/13/23 Annette Walker MSW Jewelry Sales 05/13/24 Batool Celis MD 1 [facility] [place] [address] Radiation Oncologist Radiology-Radiation Oncology 06/08/24 documented as of this encounter
--- OUTSIDE RECORDS SUMMARY | 2025-01-31 16:01 | XMS_ITS | Encounter Summary ---
Author Organization [place] [address] Care Team Providers Care Registered Vascular Technologist (Rvt) Name Role Phone Chetna Cedeno MD Primary Care Provider [phone] Arlyn Schmidt MD Unavailable [phone] Tacho Echavarria MD Unavailable [phone] Matt Ulrich MD Unavailable [phone] Eze Brock Unavailable Annette Walker LONGWALL HEADGATE OPERATOR Unavailable [phone] Batool Celis MD Unavailable [phone] Encounter Details Date Type Department Care Team (Late st Contact Info) Description 01/29/2025 Social Work [facility] Cancer Care [facility] [place] [address] Sonny Fleming, LONGWALL HEADGATE OPERATOR Social History Tobacco Use Types Packs/Day Years [...] your doctor or pharmacy? Never 11/07/2023 [facility] Utilities Answer Date Recorded In the past 12 months has th e electric, gas, oil, or water [employer] threatened to shut off services in your [...] Date Recorded PHQ-2 Total Score 5 07/07/2024 [facility] [place] of Occupat ional Health - Occupational Stress [...] a skilled nursing (including now)? No 11/07/2023 [facility] IP Transportation Answer D ate Recorded [...] Assessment Author No 12/06/2022 2:08 PM EDT MarvbettyMacarena CCMA documented as of this encounter Mental Status * Because of a physical, mental or emotional condition, does this person have serious difficulty concentrating, remembering or making decisions? Answer Entry Date Author No 12/06/2022 2:08 PM EDT DoniMacarena CCMSharonda documented in this encounter Progress Notes * Sonny Fleming MSW - 01/29/2025 3:12 PM EDT 01/29/25 1511 Dental Aide Assessment Referred By phone call Disease/Emery Site Test Clerk Assignment Breast cancer Referral Location: [facility] Reason for Referral transportation Identified Needs Adjustment to illness;Transportation Social Work Interventions Transportation;Brief Couseling/Support;Education/Information FARHAD Romo received a call from pt stating that she is in need of a waiver for transportation from her health insurance as she is not feeling well enough to drive to her appointments. MAP MOUNTER followed up with MAGAN Reid to discuss pt. Dr. Echavarria is out of the offices so Jeanette suggested that patient call her to discuss her feeling sick. Jeanette will follow up with ENRIQUE next week on if carmine pt will be approved a letter to request a driving exception. ENRIQUE is pending this note for follow up. documented in this encounter Plan of Treatment Upcoming Encounters Date Type Department Care Team (Late st Contact Info) Description 02/02/2025 11:20 AM EDT Telemedicine [facility] [address] [facility] [address] [place] [address] Samm Ledesma APRN [address] [facility] [address] [place], [place] [id number] 02/04/2025 11:00 AM EDT Appointment [facility] Women's Wellness [facility] Dr. Carbajal, [facility] Tacho Echavarria MD [address] [place], [place] [phone] Naya García PA-C [address] [facility] [address] [place] [phone] 02/04/2025 2:00 PM EDT Appointment [place] [address] Tacho Echavarria MD 1 [place] [address] 02/04/2025 2:20 PM EDT Appointment [facility] [place] [address] Tacho Echavarria MD 1 [place] [address] 02/10/2025 10:30 AM EDT Office Visit [address] [place] [address] Sin Tran MD [address] [place] [address] 03/02/2025 11:40 AM EDT Office Visit [facility] [address] [place] [address] [place] [address] [place] [address] 03/02/2025 12:45 PM EDT Procedure visit [facility] [address] [facility] [address] [place] [address] Samm Ledesma APRN [address] [facility] [address] [place], [place] [id number] 04/29/2025 9:15 AM EDT Appointment [place] [address] Batool Celis MD [address] [place] [address] CANCER CARE [place], [place] [phone] documented as of this encounter Goals Goal [...] documented as of this encounter Care Teams Registered Vascular Technologist (Rvt) Relationship Specialty [place] [address] [place] [address] PCP - General 06/21/10 Arlyn Schmidt MD [address] [place] [address] Consulting Physician Internal Medicine-Endocrinology, Diabetes & Metabolism 11/28/20 Tacho Echavarria MD 1 [place] [address] Internal Medicine-Medical Oncology 11/12/23 Matt Ulrich MD 1 [place] [address] Surgery-Surgical Oncology 12/04/23 Eze Brock Pastoral Care 12/13/23 Annette Walker, ARACELI Test Clerk 05/13/24 Batool Celis MD 1 [facility] [place] [address] Radiation Oncologist Radiology-Radiation Oncology 06/08/24 documented as of this encounter
--- OUTSIDE RECORDS SUMMARY | 2025-01-31 16:01 | XMS_ITS | Encounter Summary ---
Author Organization [place] [address] Care Team Providers Care Woodworking Machine Operator Name Role Phone Chetna Cedeno MD Primary Care Provider [phone] Arlyn Scmhidt MD Unavailable [phone] Tacho Echavarria MD Unavailable [phone] Matt Ulrich MD Unavailable [phone] Eze Brock Unavailable Annette Walker Unavailable [phone] Batool Celis MD Unavailable [phone] Reason for Visit * Reason Comments Oncology Nurse Navigation Encounter Details Date Type Department Care Team (Late st Contact Info) Description 01/29/2025 Patient Outreach [facility] [place], [place] [id number] Shilpa Cline, RN Oncology Nurse Navigation Social History Tobacco Use Types Packs/Day Years [...] from your doctor or pharmacy? Never 11/07/[address] [facility] Utilities Answer Date Recorded In the past 12 months has th e electric, gas, oil, or water [employer] threatened to shut off services in your [...] often do you attend chur ch or shinto services? 1 to 4 times per year [...] Date Recorded PHQ-2 Total Score 5 07/07/2024 [facility] [place] of Occupat ional Health - Occupational Stress [...] [facility] the [facility] were you [facility] or living in a prison (including now)? No 11/07/2023 [facility] IP Transportation Answer D ate [...] documented in this encounter Progress Notes * Shilpa Cline RN - 01/29/2025 2:03 PM EDT Navigation Assessment Chief complaint: Chief Complaint Patient presents with Oncology Nurse Navigation Current Status: Active Diagnosis: Breast Visit Type: Telephone - incoming Physical Nausea/vomiting;Diarrhea Intervention: Patient left voicemail for NN asking for help to find a local provider where she lives. She is struggling with n/v and diarrhea. NN called her back. Voicemail box is not set up. Will try to call again. Follow-up Plan 02/[address] Echavarria Onc NN will continue to follow patient. documented in this encounter Plan of Treatment Upcoming Encounters Date Type Department Care Team (Late st Contact Info) Description 02/02/2025 11:20 AM EDT Telemedicine [facility] [address] [facility] [address] [place] [address] Samm Ledesma MARSHMALLOW MAKER [address] [facility] [address] [place] [address] 02/04/2025 11:00 AM EDT Appointment [facility] Women's Wellness [facility] [place] [address] Tacho Echavarria MD 1 [place] [address] Naya García PA-C [address] [place] [address] [place] [address] 02/04/2025 2:00 PM EDT Appointment [facility] [place], [place] [phone] Tacho Echavarria MD 1 [place], [place] [id number] 02/04/2025 2:20 PM EDT Appointment Cancer Care Medical Oncology [place], [place] 0546617 Tacho Echavarria MD [address] [place] [address] [id number] 02/10/2025 10:30 AM EDT Office Visit [facility] [address] [facility] [address] [place] [address] Sin Tran MD 4900 [place] [address] 03/02/2025 11:40 AM EDT Office Visit [facility] [address] [place] [address] [place] [address] [place] [address] 03/02/2025 12:45 PM EDT Procedure visit [facility] [address] [facility] [address] [place] [address] Samm Ledesma, MARSHMALLOW MAKER [address] [facility] [address] [place], [place] [phone] 04/29/2025 9:15 AM EDT Appointment [facility] RAD ONC [place], [place] [phone] Batool Celis MD [address] [place] [address] C[place], [place] 666[address]17 documented as of this encounter Goals Goal [...] documented as of this encounter Care Teams Woodworking Machine Operator Relationship Specialty [place] [address] [place] [address] PCP - General 06/21/10 Arlyn Schmidt MD [address] [place] [address] Consulting Physician Internal Medicine-Endocrinology, Diabetes & Metabolism 11/28/20 Tacho Echavarria MD 1 [place] [address] Internal Medicine-Medical Oncology 11/12/23 Matt Ulrich MD 1 [place] [address] Surgery-Surgical Oncology 12/04/23 Eze Brock Pastoral Care 12/13/23 Aaron Annette, SKID MAN Mold Maker 05/13/24 Batool Celis MD 1 [facility] [place] [address] Radiation Oncologist Radiology-Radiation Oncology 06/08/24 documented as of this encounter
--- OUTSIDE RECORDS SUMMARY | 2025-01-31 16:01 | XMS_ITS | Encounter Summary ---
Author Organization [employer] [place] [address] Care Team Providers Care Lithographic Press Operator Apprentice Name Role Phone Chetna Cedeno MD Primary Care Provider [phone] Arlyn Schmidt MD Unavailable [phone] Tacho Echavarria MD Unavailable [phone] Matt Ulrich MD Unavailable [phone] Eze Brock Unavailable Annette Walker Unavailable [phone] Batool Celis MD Unavailable [phone] Reason for Visit * Reason Onset Date Comments Medication Refill 12/29/2024 Encounter Details Date Type Department Care Team (Late st Contact Info) Description 12/29/[address] [address] Munir Hilton MD [address] [place] [address] Medication Refill Social History Tobacco Use Types [...] doctor or pharmacy? Never 11/07/[address] [facility] Utilities Answer Date Recorded In [...] often do you attend chur ch or restorationist services? 1 to 4 times per year 11/07/2023 Do you belong to any clubs o r organizations such as yarsani groups, unions, fraternal or athletic groups, or [...] Date Recorded PHQ-2 Total Score 5 07/07/2024 [facility] [place] of Occupat ional Health - Occupational Stress [...] any time in the past 12 m [facility], were you homeless or living in a senior living (including now)? No 11/07/2023 [facility] IP Transportation Answer D ate [...] of Assessment Author No 12/06/2022 2:08 PM Mcaarena Henson CCMA * Does this person have [...] Refills Last Filled Start Date End Date rOPINIRole (REQUIP) 0.25 mg Oral TabletIndications: Restless leg syndrome Take 1 Tablet by mouth nightly as needed. for up to 30 days. 30 Tablet 5 12/29/2024 documented in this encounter Plan of Treatment Upcoming Encounters Date Type Department Care Team (Late st Contact Info) Description 02/02/2025 11:20 AM EDT Telemedicine [facility] [address] [facility] [address] [place] [address] Samm Ledesma APRN [address] [facility] [address] [place], [place] [phone] 02/04/2025 11:00 AM EDT Appointment [facility] Women's Wellness [facility] [place] [address] Tacho Echavarria MD [address] [place], [place] 80[address] Naya García PA-C [address] [place] [address] 254 [place] [address] 02/04/2025 2:00 PM EDT Appointment [place] [address] Tacho Echavarria MD [address] [place] [address] [id number] 02/04/2025 2:20 PM EDT Appointment Cancer Care Medical Oncology [place], [place] 8[address] Tacho Echavarria MD [address] [place] [address] [id number] 02/10/2025 10:30 AM EDT Office Visit [facility] [address] [facility] [address] [place] [address] Sin Tran MD 4900 [place] [address] 03/02/2025 11:40 AM EDT [place] [address] [place] [address] [place] [address] [place] [address] 03/02/2025 12:45 PM EDT Procedure visit [facility] [address] [facility] [facility] [address] [place] [address] Samm Ledesma, CHECK OUT CASHIER [address] [place] [address] 04/29/2025 9:15 AM EDT Appointment [facility] RAD ONC [place], [place] 224[address] Batool Celis MD [address] [place] [address] CANCER CARE [place], [place] [phone] documented as of this encounter Goals Goal [...] as of this encounter Visit Diagnoses Diagnosis Restless leg syndrome Restless legs syndrome (RLS) documented in this encounter Discontinued Medications Medication Sig Discontinue Reason Start Date End Da te rOPINIRole (REQUIP) 0.25 mg Oral TabletIndications:Restle ss leg syndrome Take 1 Tablet by mouth nightly as needed. for up to 30 days. Reorder 02/21/2024 12/29/2024 documented as of this encounter Additional Health Concerns Assessment Noted Time PHQ-9 Depression Total Score: 17 024 8:39 AM EST PHQ-2 Depression Total Score: 5 07/07/20 24 8:39 AM EST documented as of this encounter Care Teams Lithographic Press Operator Apprentice Relationship Specialty Start [place] [address] [place] [address] PCP - General 06/21/10 Arlyn Schmidt MD [address] [place], [place] 8[address] Consulting Physician Internal Medicine-Endocrinology, Diabetes & Metabolism 11/28/20 Tacho Echavarria MD 1 [place] [address] Internal Medicine-Medical Oncology 11/12/23 Matt Ulrich MD 1 [place] [address] Surgery-Surgical Oncology 12/04/23 Eze Brock Pastoral Care 12/13/23 Annette Walker MSW Clinical Laboratory Manager 05/13/24 Batool Celis MD [address] [place] [address] [place] [address] Radiation Oncologist Radiology-Radiation Oncology 06/08/24 documented as of this encounter
--- OUTSIDE RECORDS SUMMARY | 2025-01-31 16:01 | XMS_ITS | Encounter Summary ---
Author Organization [place] [address] Care Team Providers Care Medical Coding Technician Name Role Phone Chetna Cedeno MD Primary Care Provider [phone] Arlyn Schmidt MD Unavailable [phone] Tacho Echavarria MD Unavailable [phone] Matt Ulrich MD Unavailable [phone] Eze Brock Unavailable Annette Walker EXPERIMENTAL PLASTICS FABRICATOR Unavailable [phone] Batool Celis MD Unavailable [phone] Encounter Details Date Type Department Care Team (Late st Contact Info) Description 12/30/2024 Social Work [facility] Cancer Care [facility] [place] [address] Sonny Fleming, EXPERIMENTAL PLASTICS FABRICATOR Social History Tobacco Use Types Packs/Day Years [...] th e electric, gas, oil, or water [employer] threatened to shut off services in your [...] Recorded PHQ-2 Total Score 5 07/07/2024 [facility] [place] of Occupat ional Health - Occupational Stress [...] in a residential (including now)? No 11/07/2023 [facility] IP Transportation [...] AM EDT Telemedicine [facility] [address] [facility] [address] [place] [address] Samm Ledesma, AIR CHIPPER [address] [facility] [address] [place], [place] [address] 02/04/2025 11:00 AM EDT Appointment [facility] Women's Wellness [facility] [place] [address] Tacho Echavarria MD [address] [place] [address] Naya García PA-C [address] [place] [address] [address] [place] [address] 02/04/2025 2:00 PM EDT Appointment [facility] [place], [place] 539[address] Tacho Echavarria MD [address] [place] [address] [id number] 02/04/2025 2:20 PM EDT Appointment [facility] Care Medical Oncology [place], [place] 5547517 Tacho Echavarria MD [address] [place] [address] [id number] 02/10/2025 10:30 AM EDT Office Visit [address] [place] [address] Sin Tran MD [address] [place] [address] 03/02/2025 11:40 AM EDT [place] [address] [place] [address] [place] [address] [place] [address] 03/02/2025 12:45 PM EDT Procedure visit [facility] [address] [facility] [address] [place] [address] Samm Ledesma APRN [address] [facility] [address] [place] [address] 04/29/2025 9:15 AM EDT Appointment [place] [address] Batool Celis MD [address] [place] [address] [place] [address] documented as of this encounter [...] as of this encounter Care Teams Medical Coding Technician Relationship Specialty [place] [address] [place] [address] PCP - General 06/21/10 Arlyn Schmidt MD [address] [place] [address] Consulting Physician Internal Medicine-Endocrinology, Diabetes & Metabolism 11/28/20 Tacho Echavarria MD 1 [place], [place] [phone] Internal Medicine-Medical Oncology 11/12/23 Matt Ulrich MD 1 [place], [place] [phone] Surgery-Surgical Oncology 12/04/23 Eze Brock Pastoral Care 12/13/23 Annette Walker, ARACELI Police Pilot 05/13/24 Batool Celis MD 1 [facility] [place] [address] Radiation Oncologist Radiology-Radiation Oncology 06/08/24 documented as of this encounter
--- OUTSIDE RECORDS SUMMARY | 2025-01-31 16:01 | XMS_ITS | Encounter Summary ---
Author Organization [place] [address] Care Team Providers Care Oven Tender Name Role Phone Chetna Cedeno MD Primary Care Provider [phone] Arlyn Schmidt MD Unavailable [phone] Tacho Echavarria MD Unavailable [phone] Matt Ulrich MD Unavailable [phone] Eze Brock Unavailable Annette Walker Unavailable [phone] Batool Celis MD Unavailable [phone] Reason for Visit * Reason Onset Date Comments Botox Injection 01/01/2025 ~03/02/2025 Encounter Details Date Type Department Care Team (Late st Contact Info) Description 01/01/2025 Patient Outreach [facility] [address] [place] [address] Samm Ledesma, KARATE BLACK BELT [address] [place] [address] Botox Injection (~03/02/2025 ) Social History Tobacco Use Types Packs/Day [...] from your doctor or pharmacy? Never 11/07/2023 [facility] Utilities Answer Date Recorded In [...] often do you attend chur ch or anabaptism services? 1 to 4 times per year [...] Date Recorded PHQ-2 Total Score 5 07/07/2024 [facility] of Occupat ional [facility] - Occupational Stress Questionnaire Answer Date [...] time in the past 12 m [facility], were you homeless or living in a detention (including now)? No 11/07/2023 [facility] IP Transportation Answer D ate Recorded In [...] Assessment Author No 12/06/2022 2:08 PM EDT MarvMacarena hernández CCMSharonda * Because of a physical, mental or emotional condition, does this person have difficulty doing errands alone such as visiting a doctor's office or shopping? Answer Date of Assessment Author No 12/06/2022 2:08 PM EDT DoniMacarena CCMSharonda documented as of this encounter Mental Status * Because of a physical, mental or emotional condition, does this person have serious difficulty concentrating, remembering or making decisions? Answer Entry Date Author No 12/06/2022 2:08 PM EDT MarvMacarena hernández CCMSharonda documented in this encounter Miscellaneous Notes * Telephone Encounter - Maria Elena Harvey - 01/12/2025 1:09 PM EDT Pt suzy'ed Botox for 03/02/25 * Telephone Encounter - Brittany Narvaez MA - 01/01/2025 11:30 AM EDT ~03/02/2025 ANNIE APPROVED: [id number] AUTH #: ASO ASBM Preferred [id number] DATES OF APPROVAL: 08/12/2024-08/11/2025 UNITS APPROVED: 620 units/ 4 visits documented in this encounter Plan of Treatment Upcoming Encounters Date Type Department Care Team (Late st Contact Info) Description 02/02/2025 11:20 AM EDT Telemedicine [facility] [address] [place] [address] Samm Ledesma, LEYLA [address] [address] [place] [address] 02/04/2025 11:[address] [facility] Women's Wellness [facility] [place] [address] Tacho Echavarria MD [address] [place], [place] [id number] Naya García PA-C [address] [facility] [address] [place] [address] 02/04/2025 2:00 PM EDT Appointment [place] [address] Tacho Echavarria MD 1 [place] [address] 02/04/2025 2:20 PM EDT [facility]ment [facility] [place] [address] Tacho Echavarria MD 1 [place] [address] 02/10/2025 10:30 AM EDT Office Visit [address] [place] [address] Sin Tran MD [address] [place] [address] 03/02/2025 11:40 AM EDT Office Visit [facility]ULO MERRITT [address] [place] [address] [place] [address] [place] [address] 03/02/2025 12:45 PM EDT Procedure visit [facility] [address] [place] [address] Samm Ledesma APRN [address] [address] [place], [place] [id number] 04/29/2025 9:15 AM EDT Appointment [facility] [place] [address] Batool Celis MD 1 [facility] [place], [place] [id number] documented as of this encounter Goals Goal [...] documented as of this encounter Care Teams Oven Tender Relationship Specialty Start [place] [address] [place] [address] PCP - General 06/21/10 Arlyn Schmidt MD [address] [place] [address] Consulting Physician Internal Medicine-Endocrinology, Diabetes & Metabolism 11/28/20 Tacho Echavarria MD 1 [place] [address] Internal Medicine-Medical Oncology 11/12/23 Matt Ulrich MD 1 [place] [address] Surgery-Surgical Oncology 12/04/23 Delmy Eze Pastoral Care 12/13/23 Annette Walker, ARACELI Rn Invasive 05/13/24 Batool Celis MD 1 [facility] [place] [address] Radiation Oncologist Radiology-Radiation Oncology 06/08/24 documented as of this encounter
--- OUTSIDE RECORDS SUMMARY | 2025-01-31 16:01 | XMS_ITS | Encounter Summary ---
Author Organization [place] [address] Care Team Providers Care Housemaid Name Role Phone Chetna Cedeno MD Primary Care Provider [phone] Arlyn Schmidt MD Unavailable [phone] Tacho Echavarria MD Unavailable [phone] Matt Ulrich MD Unavailable [phone] Eze Brock Unavailable Annette Walker Unavailable [phone] Batool Celis MD Unavailable [phone] Encounter Details Date Type Department Care Team (Late st Contact Info) Description 12/29/2024 Orders Only [facility] [address] [place] [address] Elie Antoine, [facility] Restless leg syndrome; Essential hypertension, benign Social History Tobacco Use Types Packs/Day Years [...] Recorded In the past 12 months has [employer], oil, or water [employer] threatened to shut off services in your [...] any clubs o r organizations such as mandaeism groups, unions, fraternal or athletic groups, or [...] Date Recorded PHQ-2 Total Score 5 07/07/2024 [facility] of Occupat ional Health - Occupational Stress [...] time in the past 12 m [facility], were you homeless or living in a chcf (including now)? No 11/07/2023 [facility] IP Transportation Answer D ate [...] Refills Last Filled Start Date End Date losartan (COZAAR) 50 mg Oral TabletIndications: Essential hypertension, benign Take 1 Tablet by mouth daily. only if BP elevated 90 Tablet 12/29/2024 rOPINIRole (REQUIP) 0.25 mg Oral TabletIndications: Restless leg syndrome Take 1 Tablet by mouth nightly as needed. for up to 30 days. 30 Tablet 5 12/29/2024 documented in this encounter Miscellaneous Notes * Addendum Note - Elie Antoine RPH - 12/29/2024 2:07 PM EDTAddended by: ELIE ANTOINE on: 12/29/2024 04:18 PM Modules accepted: Orders documented in this encounter Plan of Treatment Upcoming Encounters Date Type Department Care Team (Late st Contact Info) Description 02/02/2025 11:20 AM EDT Telemedicine [facility] [address] [facility] [address] [place] [address] Samm Ledesma APRN [address] [facility] [address] [place], [place] [id number] 02/04/2025 11:00 AM EDT Appointment [facility] Women's Wellness [facility] [address] [facility] [address] Tacho Echavarria MD 1 [place] [address] Naya García PA-C [address] [address] 02/04/2025 2:00 PM EDT Appointment [facility] [place], [place] [id number] Tacho Echavarria MD 1 [place], [place] [address] 02/04/2025 2:20 PM EDT Appointment [facility] [place], [place] [phone] Tacho Echavarria MD [address] [place] [id number] 02/10/2025 10:30 AM EDT Office Visit [facility] [address] [facility] [address] [place] [address] Sin Tran MD [address] [place] [address] 03/02/2025 11:40 AM EDT Office Visit [facility] [address] [place] [address] [place] [address] [place] [address] 03/02/2025 12:45 PM EDT Procedure visit [facility] [address] [place] [address] Samm Ledesma, CARBON PAPER INTERLEAFER [address] [address] [facility] [address] [place] [address] 04/29/2025 9:15 AM EDT Appointment [facility] RAD ONC [place], [place] [phone] Batool Celis MD [address] [place] [address] documented as of this encounter Goals Goal [...] Restless leg syndrome Restless legs syndrome (RLS) Essential hypertension, benign documented in this encounter Discontinued Medications Medication Sig Discontinue Reason Start Date End Da te rOPINIRole (REQUIP) 0.25 mg Oral TabletIndications:Restl ess leg syndrome Take 1 Tablet by mouth nightly as needed. for up to 30 days. Reorder 12/29/2024 12/29/2024 losartan (COZAAR) 50 mg Oral TabletIndications:Essen tial hypertension, benign Take 1 Tablet by mouth daily. only if BP elevated Reorder 12/29/2024 12/29/2024 documented as of this encounter Additional Health Concerns Assessment Noted Time PHQ-9 Depression Total Score: 17 024 8:39 AM EST PHQ-2 Depression Total Score: 5 07/07/20 24 8:39 AM EST documented as of this encounter Care Teams Housemaid Relationship Specialty [place] [address] [place] [address] PCP - General 06/21/10 Arlyn Schmidt MD [address] [place] [address] Consulting Physician Internal Medicine-Endocrinology, Diabetes & Metabolism 11/28/20 Tacho Echavarria MD 1 [place] [address] Internal Medicine-Medical Oncology 11/12/23 Matt Ulrich MD 1 [place], [place] [id number] Surgery-Surgical Oncology 12/04/23 Eze Brock Pastoral Care 12/13/23 Annette Walker, SKEIN WASHER Plant Machinist 05/13/24 Batool Celis MD 1 [facility] [place] [address] Radiation Oncologist Radiology-Radiation Oncology 06/08/24 documented as of this encounter
--- OUTSIDE RECORDS SUMMARY | 2025-01-31 16:01 | XMS_ITS | Encounter Summary ---
Author [place] [address] Care Team Providers Care Aligner Name Role Phone Chetna Cedeno MD Primary Care Provider [phone] Arlyn Schmidt MD Unavailable [phone] Tacho Echavarria MD Unavailable [phone] Matt Ulrich MD Unavailable [phone] Eze Brock Unavailable Annette Walker Unavailable [phone] Batool Celis MD Unavailable [phone] Encounter Details Date Type Department Care Team (Late st Contact Info) Description 12/23/2024 Telephone [facility] [place], [place] [id number] Tacho Echavarria MD [address] [place] [id number] Social History Tobacco Use Types Packs/Day Years [...] your doctor or pharmacy? Never 11/07/2023 [facility] Utilities Answer Date Recorded In [...] often do you attend chur ch or yazidism services? 1 to 4 times per year 11/07/2023 Do you belong to any clubs o r organizations such as religion groups, unions, fraternal or athletic groups, or [...] PHQ-2 Total Score 5 07/07/2024 [facility] of Occupat ional Health - Occupational Stress [...] time in the past 12 m [facility], were you homeless or living in a halfway (including now)? No 11/07/2023 [facility] IP Transportation Answer D ate Recorded [...] Author No 12/06/2022 2:08 PM EDT DoniMacarena CCMA documented as of this encounter Mental Status * Because of a physical, mental or emotional condition, does this person have serious difficulty concentrating, remembering or making decisions? Answer Entry Date Author No 12/06/2022 2:08 PM EDT DoniMacarena CCMSharonda documented in this encounter Miscellaneous Notes * Addendum Note - Fabiola Mcgowan RN - 12/24/2024 8:07 AM EDTAddended by: FABIOLA MCGOWAN on: 12/24/2024 08:07 AM Modules accepted: Orders * Telephone Encounter - Fabiola Mcgowan RN - 12/24/2024 8:07 AM EDT Noted, thanks * Telephone Encounter - Tia Moulton, Clerical Staff - 12/23/2024 4:20 PM EDT Patient called to schedule follow up. Updated hp & cell #'s. Scheduled MD follow up on 01/06 at 1:20 with labs prior. * Telephone Encounter - Missy Almaraz - 12/23/2024 3:25 PM EDTSaudrey ECHAVARRIA Ja Jerez, I am trying to reach you to schedule a follow up appointment with Dr. Echavarria. The phone number jenni on file has been disconnected. Please call us today to schedule and update your information. Thank you. documented in this encounter Plan of Treatment Upcoming Encounters Date Type Department Care Team (Late st Contact Info) Description 02/02/2025 11:20 AM EDT Telemedicine [facility] [address] [place] [address] Samm LedesmaLEYLA [address] [address] [place] [address] 02/04/2025 11:[address] [facility] Women's Wellness [facility] [place] [address] Tacho Echavarria MD 1 [place] [address] Naya García PA-C [address] [place] [address] [address] [place] [address] 02/04/2025 2:00 PM EDT Appointment [place] [address] Tacho Echavarria MD [address] [place] [address] 02/04/2025 2:20 PM EDT Appointment [facility] [place] [address] Tacho Echavarria MD [address] [place] [address] 02/10/2025 10:30 AM EDT Office Visit [address] [place] [address] Sin Tran MD [address] [place] [address] 03/02/2025 11:40 AM EDT Office Visit [facility] MERRITT [address] [place] [address] [place] [address] [place] [address] 03/02/2025 12:45 PM EDT Procedure visit [facility] [address] [place] [address] Samm Ledesma APRN [address] [facility] [address] [place] [address] 04/29/2025 9:15 AM EDT Appointment [facility] RAD ONC [address] [place], [place] [phone] Batool Celis MD [address] [place] [address] CANCER CARE [place], [place] [phone] documented as of this encounter Goals Goal Patient Goal Type Associated Problems Recent Progress Patient-Stated? Author Blood Pressure < 140/90 Blood Pressure 129/95(01/15 2:00 PM EDT) No Chetna Cedeno MD Breast [facility] Breast [facility] On track(2024 12:01 PM EST) No Jasmin Porter, RAUL Note: Patient acknowledges understanding of new diagnosis, plan of care, available resources and how to contact Nurse Navigator with any future questions or concerns. [facility] No Jasmin Porter, RAUL Note: Patient will be compliant with monthly SBE and is aware of who to contact for any unusual or concerning findings. Maintain a healthy diet, exercise regularly and maintain an ideal body weight General No Sanam Julio MA documented as of this encounter Results * MISCELLANEOUS LAB (01/06/2025 1:13 PM EDT) MISC COMMENT Tiago 01/07/2025 7:[address] [facility] Blood VENOUS STRUCTURE / Unknown Port / Unknown 01/06/2025 1:13 PM EDT 01/07/2025 7:31 AM EDT [facility] MD HEMATOLOGY ORDERABLES Final Result [facility] 1 [place] [address] documented in this encounter Visit Diagnoses Diagnosis 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)- Primary Acquired lymphedema Other lymphedema Encounter for monitoring aromatase inhibitor therapy Encounter for therapeutic drug monitoring Invasive ductal carcinoma of breast, female, right (HCC) Malignant neoplasm of right female breast, unspecified estrogen receptor status, unspecified site of breast (HCC) documented in this encounter Additional Health Concerns Assessment Noted Time PHQ-9 Depression Total Score: 17 024 8:39 AM EST PHQ-2 Depression Total Score: 5 07/07/20 24 8:39 AM EST documented as of this encounter Care Teams Aligner Relationship Specialty Start [place] [address] [place] [address] PCP - General 06/21/10 Arlyn Schmidt MD [facility] [address] [place], [place] [address] Consulting Physician Internal Medicine-Endocrinology, Diabetes & Metabolism 11/28/20 Tacho Echavarria MD 1 [place] [address] Internal Medicine-Medical Oncology 11/12/23 Matt Ulrich MD [address] [place] [address] Surgery-Surgical Oncology 12/04/23 Eze Brock Pastoral Care 12/13/23 Annette Walker MSW Administrative Nursing Supervisor 05/13/24 Batool Celis MD [address] [place] [address] [place] [address] Radiation Oncologist Radiology-Radiation Oncology 06/08/24 documented as of this encounter
--- OUTSIDE RECORDS SUMMARY | 2025-01-31 16:01 | XMS_ITS | Encounter Summary ---
Author Organization [place] [address] Care Team Providers Care Siebel Administrator Name Role Phone Chetna Cedeno MD Primary Care Provider [phone] Arlyn Schmidt MD Unavailable [phone] Tacho Echavarria MD Unavailable [phone] Matt Ulrich MD Unavailable [phone] Eze Brock Unavailable Annette Walker Unavailable [phone] Batool Celis MD Unavailable [phone] Reason for Visit * Reason Onset Date Comments Medication Refill 12/29/2024 Encounter Details Date Type Department Care Team (Late st Contact Info) Description 12/29/2024 Refill [facility] MERRITT [address] [place] [address] [place] [address] [place] [address] Medication Refill Social History Tobacco Use Types [...] or pharmacy? Never 11/07/2023 [facility] Utilities Answer Date Recorded In the [...] any clubs o r organizations such as islam groups, unions, fraternal or athletic groups, or [...] Date Recorded PHQ-2 Total Score 5 07/07/2024 [facility]ational Stress Questionnaire Answer Date [...] in a half-way (including now)? No 11/07/2023 [facility] IP Transportation Answer D [...] only if BP elevated 90 Tablet 12/29/2024 documented in this encounter Miscellaneous Notes * Telephone Encounter - Shilpa Verdugo RMA - 12/29/2024 4:02 PM EDT RX sent. Pt made appt for 03/02/2025. documented in this encounter Plan of Treatment Upcoming Encounters Date Type Department Care Team (Late st Contact Info) Description 02/02/2025 11:20 AM EDT Telemedicine [facility] [address] [facility] [address] [place] [address] Samm Ledesma, SCRAP PICKER [address] [facility] [address] [place] [address] 02/04/2025 11:00 AM EDT Appointment [facility] Women's Wellness [place] [address] [facility] [place] [address] Tacho Echavarria MD 1 [place] [address] Naya García PA-C [address] [place] [address] 254 [place] [address] 02/04/2025 2:00 PM EDT Appointment [facility] [place] [address] Tacho Echavarria MD 1 [place] [address] 02/04/2025 2:20 PM EDT Appointment [facility] Medical Oncology [place], [place] [address] Tacho Echavarria MD [address] [place] [id number] 02/10/2025 10:30 AM EDT Office Visit [facility] [address] [address] [address] [place] [address] Sin Tran MD [address] [place] [address] 03/02/2025 11:40 AM EDT Office Visit [facility] [place] [address] [place] [address] [place] [address] [place] [address] 03/02/2025 12:45 PM EDT Procedure visit [facility] [address] [facility] [address] [place] [address] Samm Ledesma, SCRAP PICKER [address] [place] [address] 04/29/2025 9:15 AM EDT Appointment [facility] [place] [address] Batool Celis MD [address] [place] [address] documented as of this encounter Goals Goal Patient Goal Type Associated Problems Recent Progress Patient-Stated? Author Blood Pressure < 140/90 Blood Pressure 129/95(01/15 2:00 PM EDT) No Chetna Cedeno MD Breast [facility] Breast [facility] On track(2024 12:01 PM EST) No [...] as of this encounter Visit Diagnoses Diagnosis Essential hypertension, benign documented in this encounter Discontinued Medications Medication Sig Discontinue Reason Start Date End Da te losartan (COZAAR) 50 mg Oral TabletIndications:Essent ial hypertension, benign Take 1 Tablet by mouth daily. Reorder 07/03/2024 12/29/2024 documented as of this encounter Additional Health Concerns Assessment Noted Time PHQ-9 Depression Total Score: 17 024 8:39 AM EST PHQ-2 Depression Total Score: 5 07/07/20 24 8:39 AM EST documented as of this encounter Care Teams Siebel Administrator Relationship Specialty Start [place] [address] [place] [address] PCP - General 06/21/10 Arlyn Schmidt MD [address] [place] [address] Consulting Physician Internal Medicine-Endocrinology, Diabetes & Metabolism 11/28/20 Tacho Echavarria MD 1 [place] [address] Internal Medicine-Medical Oncology 11/12/23 Matt Ulrich MD 1 [place] [address] Surgery-Surgical Oncology 12/04/23 Eze Brock Pastoral Care 12/13/23 Annette Walker, ARACELI Desktop Engineer 05/13/24 Batool Celis MD 1 [facility] [address] Radiation Oncologist Radiology-Radiation Oncology 06/08/24 documented as of this encounter
--- OUTSIDE RECORDS SUMMARY | 2025-01-31 16:01 | XMS_ITS | Encounter Summary ---
Author Organization [place] [address] Care Team Providers Care Radial Saw Operator Name Role Phone Chetna Cedeno MD Primary Care Provider [phone] Arlyn Schmidt MD Unavailable [phone] Tacho Echavarria MD Unavailable [phone] Matt Ulrich MD Unavailable [phone] Eze Brock Unavailable Annette Walker Unavailable [phone] Batool Celis MD Unavailable [phone] Encounter Details Date Type Department Care Team (Late st Contact Info) Description 12/25/2024 Telephone [facility] [address] Jasmin Porter RN Social History Tobacco Use Types Packs/Day Years [...] your doctor or pharmacy? Never 11/07/2023 [facility] Utilities Answer Date Recorded [...] often do you attend chur ch or pentecostalism services? 1 to 4 times per year [...] 07/07/2024 [facility] of Occupat ional [facility] - Occupational Stress Questionnaire Answer Date Recorded [...] any time in the past 12 m [facility], were you homeless or living in a penitentiary (including now)? No 11/07/2023 [facility] IP Transportation Answer D ate Recorded [...] AM EDT Telemedicine [facility] [address] [facility] [address] [place], [place] [id number] Samm Ledesma, PACU NURSE [address] [facility] [address] [place], [place] [address] 02/04/2025 11:00 AM EDT Appointment [facility] Women's Wellness [facility] [place] [address] Tacho Echavarria MD [address] [place] [address] Naya García PA-C [address] [place] [address] [address] [place] [address] 02/04/2025 2:00 PM EDT Appointment [place] [address] aTcho Echavarria MD [address] [place] [address] 02/04/2025 2:20 PM EDT Appointment [facility] Medical Oncology [place], [place] [phone] Tacho Echavarria MD [address] [place] [address] 02/10/2025 10:30 AM EDT Office Visit [address] [address] Sin Tran MD [address] [place] [address] [place] [phone] 03/02/2025 11:40 AM EDT Office [place] [facility] [address] [place] [address] [place] [address] [place] [address] 03/02/2025 12:45 PM EDT Procedure visit [facility] [address] [place] [address] Samm Ledesma, LEYLA [address] [facility] [address] [place] [address] 04/29/2025 9:15 AM EDT Appointment [facility] RAD ONC [place], [place] [id number] Batool Celis MD [address] [place] [address] [facility] [place], [place] [id number] documented as of this encounter Goals Goal [...] documented as of this encounter Care Teams Radial Saw Operator Relationship Specialty [place] [address] [place] [address] PCP - General 06/21/10 Arlyn Schmidt MD [address] [place], [place] [address] Consulting Physician Internal Medicine-Endocrinology, Diabetes & Metabolism 11/28/20 Tacho Echavarria MD 1 [place] [address] Internal Medicine-Medical Oncology 11/12/23 Matt Ulrich MD 1 [place] [address] Surgery-Surgical Oncology 12/04/23 Eze Brock Pastoral Care 12/13/23 Annette Walker, ARACELI Rental Sales Associate 05/13/24 Batool Celis MD 1 [facility] [place] [address] Radiation Oncologist Radiology-Radiation Oncology 06/08/24 documented as of this encounter
--- OUTSIDE RECORDS SUMMARY | 2025-01-31 16:01 | XMS_ITS | Encounter Summary ---
Author [place] [address] Care Team Providers Care Textile Machine Operator Name Role Phone Chetna Cedeno MD Primary Care Provider [phone] Arlyn Schmidt MD Unavailable [phone] Tacho Echavarria MD Unavailable [phone] Matt Ulrich MD Unavailable [phone] Eze Brock Unavailable Annette Walker Unavailable [phone] Batool Celis MD Unavailable [phone] Reason for Visit * Reason Comments Pharmacy Migraine Medication Management Qulipta pa renewal Encounter Details Date Type Department Care Team (Latest Contact Info) Description 12/23/2024 Specialty Pharmacy [facility] [address] [place] [address] Anisa Lozoya CPhT Pharmacy Migraine Medication Management (Qulipta pa renewal) Social History Tobacco Use Types Packs/Day Years [...] or pharmacy? Never 11/07/2023 [facility] Utilities Answer Date Recorded In the [...] often do you attend chur ch or oriental orthodox services? 1 to 4 times per year 11/07/2023 Do you belong to any clubs o r organizations such as yazidism groups, unions, fraternal or athletic groups, or [...] Date Recorded PHQ-2 Total Score 5 07/07/2024 [facility] of Occupat ional Health - Occupational Stress [...] any time in the past 12 m [facility], were you homeless or living in a senior living (including now)? No 11/07/2023 [facility] IP Transportation Answer D ate Recorded [...] documented in this encounter Progress Notes * Anisa Lozoya CPhT - 12/23/2024 3:52 PM EDT [facility] Prior Authorization PA for Qulipta on 12/30/24. Last CR: 12/08/24 Last OV: 09/15/24. Will submit PA. [facility] Prior Authorization Submitted PA for Qulipta to [employer] insurance via [employer] ([employer] [id number]). Will follow up on 12/25. * Leslie Bentley CPhT - 12/23/2024 3:52 PM EDT [facility] Prior Authorization Determination Received notice of PA approval for Qulipta.. PA approved from 12/23/24 to 12/23/25. Refill coordination scheduled for 12/31/24. documented in this encounter Plan of Treatment Upcoming Encounters Date Type Department Care Team (Late st Contact Info) Description 02/02/2025 11:20 AM EDT Telemedicine [facility] [address] [facility] [address] [place] [address] Samm Ledesma, CLOAK ROOM ATTENDANT [address] [facility] [address] [place] [address] 02/04/2025 11:00 AM EDT Appointment [facility] Women's [facility] [place] [id number] Tacho Echavarria MD 1 [place] [address] Naya García PA-C [address] [facility] [address] [place] [address] 02/04/2025 2:00 PM EDT Appointment [place] [address] Tacho Echavarria MD 1 [place] [address] 02/04/2025 2:20 PM EDT Appointment Cancer Care Medical Oncology [address] [place], [place] [address] Tacho Echavarria MD 1 [place] [address] 02/10/2025 10:30 AM EDT Office Visit [facility] [address] [place] [address] [address] [place] [address] Sin Tran MD [address] [place] [address] 03/02/2025 11:40 AM EDT Office Visit [facility]ERR[facility] [address] [place] [address] [place] [address] [place] [address] 03/02/2025 12:45 PM EDT Procedure visit [facility] [address] [facility] [address] [place], [place] [phone] Samm Ledesma APRN [address] [facility] [address] [place] [address] 04/29/2025 9:15 AM EDT Appointment [facility] RAD ONC [place], [place] [address] Batool Celis MD 1 [facility] CANCER CARE [place], [place] [address] documented as of this encounter Goals Goal Patient Goal Type Associated Problems Recent Progress Patient-Stated? Author Blood Pressure < 140/90 Blood Pressure 129/95(01/15 2:00 PM EDT) No Chetna Cedeno MD Breast [facility] Breast Health On track(2024 12:01 PM EST) No Jasmin Porter, RAUL Note: Patient acknowledges understanding of new diagnosis, plan of care, available resources and how to contact Nurse Navigator with any future questions or concerns. Breast [facility] Breast Health No Jasmin Porter, RAUL Note: [...] documented as of this encounter Care Teams Textile Machine Operator Relationship Specialty [place] [address] [place] [address] PCP - General 06/21/10 Arlyn Schmidt MD [address] [place] [address] Consulting Physician Internal Medicine-Endocrinology, Diabetes & Metabolism 11/28/20 Tacho Echavarria MD 1 [place] [address] Internal Medicine-Medical Oncology 11/12/23 Matt Ulrich MD 1 [place] [address] Surgery-Surgical Oncology 12/04/23 Eze Brock Pastoral Care 12/13/23 Annette Walker, BANKING SERVICES OFFICER Preschool Substitute Teacher 05/13/24 Batool Celis MD 1 [facility] [place] [address] Radiation Oncologist Radiology-Radiation Oncology 06/08/24 documented as of this encounter
--- OUTSIDE RECORDS SUMMARY | 2025-01-31 16:01 | XMS_ITS | Encounter Summary ---
Author Organization [facility] [place] [address] Care Team Providers Care Medical Equipment Repairer Name Role Phone Chetna Cedeno MD Primary Care Provider [phone] Arlyn Schmidt MD Unavailable [phone] Tacho Echavarria MD Unavailable [phone] Matt Ulrich MD Unavailable [phone] Eze Brock Unavailable Annette Walker Unavailable [phone] Batool Celis MD Unavailable [phone] Reason for Visit * Reason Onset Date Comments Patient Question 01/28/2025 question about test result Encounter Details Date Type Department Care Team (Late st Contact Info) Description 01/28/2025 Telephone [facility] Medical Oncology [place], [place] [phone] Tacho Echavarria MD [address] [place] [id number] Patient Question (question about test result ) Social History Tobacco Use Types Packs/Day [...] from your doctor or pharmacy? Never 11/07/2023 [facility] Utilities Answer Date Recorded In [...] in a assisted (including now)? No 11/07/2023 [facility] IP Transportation Answer D ate Recorded [...] Telephone Encounter - Rosana Gupta RN - 01/28/2025 11:21 AM EDT Pharmacogenetics results are in and forwarded to MD. Travel Desiya message sent to patient, no need to move appt up sooner at this time. * Telephone Encounter - Sendy Waddell NA - 01/28/2025 10:43 AM EDT Reason for call: [facility], said it was something to do withDNA and what medications to take. Said she was unable to read results and was calling to see if anything needed to be done or if she was ok to wait until her appt. Preferred call back number: [phone] documented in this encounter Plan of Treatment Upcoming Encounters Date Type Department Care Team (Late st Contact Info) Description 02/02/2025 11:20 AM EDT Telemedicine [facility] [address] [facility] [address] [place] [address] Samm Ledesma APRN [address] [facility] [address] [place] [address] 02/04/2025 11:00 AM EDT Appointment [facility] Women's [facility] [place] [address] Tacho Echavarria MD 1 [place] [address] Naya García PA-C [address] [facility] [address] [place] [address] 02/04/2025 2:00 PM EDT Appointment [place] [address] Tacho Echavarria MD 1 [place] [address] 02/04/2025 2:20 PM EDT Appointment [facility] Medical Oncology [place], [place] [phone] Tacho Echavarria MD 1 [place] [address] 02/10/2025 10:30 AM EDT Office Visit [address] [place] [address] Sin Tran MD [address] [place] [address] 03/02/2025 11:40 AM EDT Office Visit [facility] MERRITT [address] [place] [address] [place] [address] [place] [address] 03/02/2025 12:45 PM EDT Procedure visit [facility] [address] [place], [place] [address] Samm Ledesma APRN [address] [facility] [address] [place] [address] 04/29/2025 9:15 AM EDT Appointment [facility] [place] [address] Batool Celis MD 1 [facility] [place], [place] [address] documented as of this encounter Goals Goal Patient Goal Type Associated Problems Recent Progress Patient-Stated? Author Blood Pressure < 140/90 Blood Pressure 129/95(01/15 2:00 PM EDT) No Chetna Cedeno MD Breast [facility] Breast Health On track(2024 12:01 PM EST) No Jasmin Porter, RAUL Note: Patient acknowledges understanding of new diagnosis, plan of care, available resources and how to contact Nurse Navigator with any future questions or concerns. Breast [facility] Breast Health No Jasmin Porter, RAUL [...] as of this encounter Care Teams Medical Equipment Repairer Relationship Specialty [place] [address] [place] [address] PCP - General 06/21/10 Arlyn Schmidt MD [address] [place] [address] Consulting Physician Internal Medicine-Endocrinology, Diabetes & Metabolism 11/28/20 Tacho Echavarria MD 1 [place] [address] Internal Medicine-Medical Oncology 11/12/23 Matt Ulrich MD 1 [place] [address] Surgery-Surgical Oncology 12/04/23 Eze Brock Pastoral Care 12/13/23 Annette Walker, [facility] Insurance Licensing Supervisor 05/13/24 Batool Celis MD 1 [facility] [place] [address] Radiation Oncologist Radiology-Radiation Oncology 06/08/24 documented as of this encounter
--- OUTSIDE RECORDS SUMMARY | 2025-01-31 16:01 | XMS_ITS | Encounter Summary ---
Author Organization [place] [address] Care Team Providers Care Manager Risk Management Name Role Phone Chetna Cedeno MD Primary Care Provider [phone] Arlyn Schmidt MD Unavailable [phone] Tacho Echavarria MD Unavailable [phone] Matt Ulrich MD Unavailable [phone] Eze Brock Unavailable Annette Walker ASSEMBLY MACHINE SET UP MECHANIC Unavailable [phone] Batool Celis MD Unavailable [phone] Encounter Details Date Type Department Care Team (Late st Contact Info) Description 12/29/2024 Social Work [facility] Cancer Care [facility] [place] [address] Annette Walker, ASSEMBLY MACHINE SET UP MECHANIC Social History Tobacco Use Types Packs/Day Years [...] your doctor or pharmacy? Never 11/07/2023 [facility] Utilities Answer Date Recorded In the past 12 months has [employer], oil, or water [employer] threatened to shut off services in your [...] often do you attend chur ch or faith services? 1 to 4 times per year 11/07/2023 Do you belong to any clubs o r organizations such as yazidi groups, unions, fraternal or athletic groups, or [...] Date Recorded PHQ-2 Total Score 5 07/07/2024 [facility] of Occupat ional Health - Occupational Stress [...] any time in the past 12 m [facility], were you homeless or living in a long term (including now)? No 11/07/2023 [facility] IP Transportation Answer D ate Recorded [...] documented in this encounter Progress Notes * Annette Walker MSW - 12/29/2024 4:05 PM EDT 12/29/24 1603 Form Designer Assessment Referred By Patient call Disease/[place] Site Director Of Public Health Assignment Breast cancer Reason for Referral Community Supports Identified Needs Adjustment to illness;Housing Social Work Interventions Community Referral;Education/Information;Brief Couseling/Support (TOOL RADIAL DRILL PRESS SET UP OPERATOR received call from Patient requesting 's letter for [facility] [place] air conditioner program. TOOL RADIAL DRILL PRESS SET UP OPERATOR drafted letter and co worker, Sonny Fleming TOOL RADIAL DRILL PRESS SET UP OPERATOR will follow up with MD for signature and share with Patient.) documented in this encounter Plan of Treatment Upcoming Encounters Date Type Department Care Team (Late st Contact Info) Description 02/02/2025 11:20 AM EDT Telemedicine [facility] [address] [facility] [address] [place] [address] Samm Ledesma APRN [address] [facility] [address] [place] [address] 02/04/2025 11:00 AM EDT Appointment [facility] Women's Wellness [facility] [place] [address] Tacho Echavarria MD [address] [place], [place] [address] Naya García PA-C [address] [place] [address] 254 [place] [address] 02/04/2025 2:00 PM EDT Appointment [facility] [place], [place] [phone] Tacho Echavarria MD 1 [place] [address] 02/04/2025 2:20 PM EDT Appointment Cancer Care Medical Oncology [place], [place] 32[address] Tacho Echavarria MD 1 [employer], [place] [address] 02/10/2025 10:30 AM EDT Office Visit [facility] [address] [facility] [address] [place] [address] Sin Tran MD [address] [place] [address] 03/02/2025 11:40 AM EDT Office Visit [facility] Mahmood [address] [place] [address] [place] [address] [place] [address] 03/02/2025 12:45 PM EDT Procedure visit [facility] [address] [facility] [address] [place] [address] Samm Ledesma, HELPDESK SPECIALIST [address] [facility] [address] [place] [address] 04/29/2025 9:15 AM EDT Appointment [facility] RAD ONC [place], [place] 6[address] Batool Celis MD [address] [place] [address] [place], [place] [id number] documented as of this encounter Goals Goal Patient Goal Type Associated Problems Recent Progress Patient-Stated? Author Blood Pressure < 140/90 Blood Pressure 129/95(01/15 2:00 PM EDT) No Chetna Cedeno MD Breast [facility] Breast [facility] On track(2024 12:01 PM EST) No Jasmin Porter RN Note: Patient acknowledges understanding of new diagnosis, plan of care, available resources and how to contact Nurse Navigator with any future questions or concerns. Breast [facility] Breast Health No Jasmin Porter, RN Note: Patient will [...] documented as of this encounter Care Teams Manager Risk Management Relationship Specialty [place] [address] [place] [address] PCP - General 06/21/10 Arlyn Schmidt MD [address] [place] [address] Consulting Physician Internal Medicine-Endocrinology, Diabetes & Metabolism 11/28/20 Tacho Echavarria MD 1 [place] [address] Internal Medicine-Medical Oncology 11/12/23 Matt Ulrich MD 1 [place] [address] Surgery-Surgical Oncology 12/04/23 Eze Brock Pastoral Care 12/13/23 Annette Walker, ASSEMBLY MACHINE SET UP MECHANIC Director Of Public Health 05/13/24 Batool Celis MD [address] [place] [address] Radiation Oncologist Radiology-Radiation Oncology 06/08/24 documented as of this encounter
--- OUTSIDE RECORDS SUMMARY | 2025-01-31 16:01 | XMS_ITS | Encounter Summary ---
Author Organization [place] [address] Care Team Providers Care Explosive Ordnance Handler Name Role Phone Chetna Cedeno MD Primary Care Provider [phone] Arlyn Schmidt MD Unavailable [phone] Tacho Echavarria MD Unavailable [phone] Matt Ulrich MD Unavailable [phone] Eze Brock Unavailable Annette Walker Unavailable [phone] Batool Celis MD Unavailable [phone] Reason for Visit * Reason Comments Pharmacy Oncology Management Abemaciclib Encounter Details Date Type Department Care Team (Latest Contact Info) Description 01/07/2025 Specialty Pharmacy [facility] [address] [place] [address] Anisa Lozoya CPhT Pharmacy Oncology Management (Abemaciclib) Social History Tobacco Use Types Packs/Day Years [...] from your doctor or pharmacy? Never 11/07/2023 [facility] Utilities Answer Date Recorded In the past 12 months has th e electric, gas, oil, or water [facility] threatened to shut off services in your [...] often do you attend chur ch or restorationism services? 1 to 4 times per year [...] PHQ-2 Total Score 5 07/07/2024 [facility] of Occupat ional Health - Occupational Stress [...] any time in the past 12 m [facility], were you homeless or living in a assisted (including now)? No 11/07/[address] [facility] IP Transportation [...] Progress Notes * Anisa Lozoya CPhT - 01/07/2025 10:56 AM EDT Specialty Pharmacy Refill Coordination Note Contacted [facility] today regarding refills of Abemaciclib . Medication to be picked up on 01/13. Copay amount: $0 Spoke with patient. Patient informed of copay. * Chetna Rodriguez RPH - 01/07/2025 10:56 AM EDT [facility] - Care Plan and Refill Review Refill questions and refill history verified. Last assessment 12/25/24. No reassessment needed at this time. Chetna Rodriguez RPH Specialty Pharmacist documented in this encounter Plan of Treatment Upcoming Encounters Date Type Department Care Team (Late st Contact Info) Description 02/02/2025 11:20 AM EDT Telemedicine [facility] NE[facility] [address] [facility] [address] [place] [address] Samm Ledesma, WAREHOUSE SPECIALIST [address] [facility] [address] [place] [address] 02/04/2025 11:00 AM EDT Appointment [facility] Women's Wellness [facility] [place] [address] Tacho Echavarria MD [address] [place] [address] Naya García PA-C [address] [facility] [address] [place] [address] 02/04/2025 2:00 PM EDT Appointment [facility] [address] Tacho Echavarria MD 1 [place] [address] 02/04/2025 2:20 PM EDT Appointment [facility] [place] [address] Tacho Echavarria MD 1 [place] [address] 02/10/2025 10:30 AM EDT Office Visit [address] [place] [address] Sin Tran MD [address] [place] [address] 03/02/2025 11:40 AM EDT Office Visit [facility] MERRITT [address] [place] [address] [place] [address] [place] [address] 03/02/2025 12:45 PM EDT Procedure visit [facility] NE[facility] [address] [facility] [address] [place] [address] Samm Ledesma, WAREHOUSE SPECIALIST [address] [facility] [address] [place], [place] [address] 04/29/2025 9:15 AM EDT Appointment [facility] [place] [address] Batool Celis MD 1 [facility] CANCER CARE [place], [place] [address] documented as of this encounter Goals Goal [...] documented as of this encounter Care Teams Explosive Ordnance Handler Relationship Specialty [place] [address] [place] [address] PCP - General 06/21/10 Arlyn Schmidt MD [address] [place] [address] Consulting Physician Internal Medicine-Endocrinology, Diabetes & Metabolism 11/28/20 Tacho Echavarria MD 1 [place] [address] Internal Medicine-Medical Oncology 11/12/23 Matt Ulrich MD 1 [facility] [place] [address] Surgery-Surgical Oncology 12/04/23 Eze Brock Pastoral Care 12/13/23 Annette Walker, ARACELI Acute Care Clinical Nurse Specialist 05/13/24 Batool Celis MD 1 [facility] [place] [address] Radiation Oncologist Radiology-Radiation Oncology 06/08/24 documented as of this encounter
--- OUTSIDE RECORDS SUMMARY | 2025-01-31 16:01 | XMS_ITS | Encounter Summary ---
Author Organization [place] [address] Care Team Providers Care Pilot Plant Research Technician Name Role Phone Chetna Cedeno MD Primary Care Provider [phone] Arlyn Schmidt MD Unavailable [phone] aTcho Echavarria MD Unavailable [phone] Matt Ulrich MD Unavailable [phone] Eze Brock Unavailable Annette Walker Unavailable [phone] Batool Celis MD Unavailable [phone] Encounter Details Date Type Department Care Team (Late st Contact Info) Description 01/11/2025 Orders Only [facility] Care Medical Oncology [place], [place] [id number] Tacho Echavarria MD [address] [place] [address] [id number] Social History Tobacco Use Types Packs/Day Years [...] from your doctor or pharmacy? Never 11/07/2023 [facility] Utilities Answer Date Recorded [...] often do you attend chur ch or sikh services? 1 to 4 times per year [...] Date Recorded PHQ-2 Total Score 5 07/07/2024 [facility] [place] of Occupat ional Health - Occupational Stress [...] any time in the past 12 m [facility], were you homeless or living in a nursing home (including now)? No 11/07/2023 [facility] IP Transportation Answer D ate Recorded [...] AM EDT Telemedicine [facility] [address] [place] [address] Samm Ledesma, SOCIAL SCIENCE MANAGER [address] [place], [place] [id number] 02/04/2025 11:00 AM EDT Appointment [facility] Women's Wellness [facility] [address] Tacho Echavarria MD [address] [place] [address] Naya García PA-C [address] [place] [address] [address] [place] [address] 02/04/2025 2:00 PM EDT Appointment [facility] [place], [place] [phone] Tacho Echavarria MD [address] [place] [address] [phone] 02/04/2025 2:20 PM EDT Appointment [facility] On[facility] [place], [place] [phone] Tacho Echavarria MD [address] [place] [address] [phone] 02/10/2025 10:30 AM EDT Office Visit [address] [place] [address] Sin Tran MD [address] [place] [address] 03/02/2025 11:40 AM EDT Office Visit [facility] [address] [place] [address] [place] [address] [place] [address] 03/02/2025 12:45 PM EDT Procedure visit [facility] [address] [place] [address] Samm Ledesma APRN [address] [place] [address] 04/29/2025 9:15 AM EDT Appointment [place] [address] Batool Celis MD [address] [place] [place] [address] [place] [address] documented as of this encounter [...] documented as of this encounter Care Teams Pilot Plant Research Technician Relationship Specialty [place] [address] [place] [address] PCP - General 06/21/10 Arlyn Schmidt MD [address] [place] [address] Consulting Physician Internal Medicine-Endocrinology, Diabetes & Metabolism 11/28/20 Tacho Echavarria MD 1 [place] [address] Internal Medicine-Medical Oncology 11/12/23 Matt Ulrich MD 1 [place] [address] Surgery-Surgical Oncology 12/04/23 Eze Brock Pastoral Care 12/13/23 Annette Walker, ARACELI Dental Assistant 05/13/24 Batool Celis MD 1 [facility] [place] [address] Radiation Oncologist Radiology-Radiation Oncology 06/08/24 documented as of this encounter
--- OUTSIDE RECORDS SUMMARY | 2025-01-31 16:01 | XMS_ITS | Encounter Summary ---
Author Organization [place] [address] Care Team Providers Care Chair Installer Name Role Phone Chetna Cedeno MD Primary Care Provider [phone] Arlyn Schmidt MD Unavailable [phone] Tacho Echavarria MD Unavailable [phone] Matt Ulrich MD Unavailable [phone] Eze Brock Unavailable Annette Walker Unavailable [phone] Batool Celis MD Unavailable [phone] Encounter Details Date Type Department Care Team (Late st Contact Info) Description 12/28/2024 Orders Only Cancer Care Medical Oncology [place], [place] [phone] Tacho Echavarria MD [address] [place] [address] [phone] 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) (Primary Dx) Social History Tobacco Use Types Packs/Day Years [...] doctor or pharmacy? Never 11/07/2023 [facility] Utilities Answer Date Recorded In the [...] Date Recorded PHQ-2 Total Score 5 07/07/2024 [facility] [place] of Occupat ional Health - Occupational Stress [...] time in the past 12 m [facility], were you homeless or living in a longterm (including now)? No 11/07/2023 [facility] IP Transportation Answer D ate Recorded [...] AM EDT Telemedicine [facility] NEUROLOGY [facility]ECTOR [address] [place] [address] Samm Ledesma APRN [address] [facility] [address] [place], [place] [id number] 02/04/2025 11:00 AM EDT Appointment [facility] Women's Wellness [facility] [place] [address] Tacho Echavarria MD [address] [place] [address] Naya García PA-C [address] [place] [address] 254 [place] [address] 02/04/2025 2:00 PM EDT Appointment [facility] [place], [place] [phone] Tacho Echavarria MD [address] [place] [address] [phone] 02/04/2025 2:20 PM EDT Appointment [facility] Medical Oncology [place], [place] [phone] Tacho Echavarria MD [address] [place] [address] [phone] 02/10/2025 10:30 AM EDT Office Visit [place] [address] [place] [address] Sin Tran MD [address] [facility] [place] [address] 03/02/2025 11:40 AM EDT Office [facility] [address] [place] [address] [place] [address] [place] [address] 03/02/2025 12:45 PM EDT Procedure visit [facility] [address] [place] [address] Samm Ledesma APRN [address] [facility] [facility] [address] [place] [address] 04/29/2025 9:15 AM EDT Appointment [facility] [place] [address] Batool Celis MD [address] [place] [address] [place] [address] documented as of this encounter [...] documented as of this encounter Results * IRON+TIBC (01/06/2025 1:13 PM EDT) Iron [...] CHEMISTRY ORDERABLES Final Result Performing Organization Address [facility] Co de Phone Number [facility], [address] , [address] [place] [phone] * VITAMIN B12/ FOLIC ACID (01/06/2025 1:13 PM EDT) Vitamin B12 305 232 - 1,245 pg/mL 01/06/2025 2:55 PM EDT [facility] Folate 15.80 >=4.80 ng/mL 01/06/2025 2:55 PM EDT [facility], [facility] Blood VENOUS STRUCTURE / Unknown Port / Unknown 01/06/2025 1:13 PM EDT 01/06/2025 1:17 PM EDT Narrative [facility] [employer], [facility] - 01/06/2025 2:55 PM EDT Ingestion of haroon doses of biotin (>5 mg/day) taken within 8 hours of drawing blood sample can interfere with this immunoassay test. us Tacho Echavarria MD CHEMISTRY ORDERABLES Final Result Performing Organization Address [facility] Co de Phone Number PREFERRED [employer], [facility] [address] [facility] , [place] [address] * (ABNORMAL) COMPREHENSIVE METABOLIC PANEL (01/06/2025 1:13 PM EDT) [facility] Signature Sodium 140 136 - 145 mmol/L 01/06/2025 1:37 PM EDT [facility] Potassium 3.8 3.5 - 5.0 mmol/L 01/06/2025 1:37 PM EDT [facility] Chloride 108(H) 98 - 107 mmol/L 01/06/2025 1:37 PM EDT [facility] Total CO2 22 22 - 29 mmol/L 01/06/2025 1:37 PM EDT [facility] Anion Gap 10 7 - 16 mmol/L 01/06/2025 1:37 PM EDT [facility] Calcium 9.2 8.6 - 10.4 mg/dL 01/06/2025 1:37 PM EDT [facility] Glucose Lvl 121(H) 70 - 99 mg/dL 01/06/2025 1:37 PM EDT [facility] BUN 16 6 - 20 mg/dL 01/06/2025 1:37 PM EDT [facility] Creatinine 0.83 0.51 - 1.30 mg/dL 01/06/2025 1:37 PM EDT [facility] Albumin 4.0 3.5 - 5.2 gm/dL 01/06/2025 1:37 PM EDT [facility] Total Protein 6.6 6.4 - 8.3 gm/dL 01/06/2025 1:37 PM EDT [facility] Bili Total 0.4 0.2 - 1.3 mg/dL 01/06/2025 1:37 PM EDT [facility] ALT 9 <=41 U/L 01/06/2025 1:37 PM EDT [facility] AST 14 <=40 U/L 01/06/2025 1:37 PM EDT [facility] Alk Phos 127(H) 36 - 123 U/L 01/06/2025 1:37 PM EDT [facility] eGFR (CKD-EPIcr 2020) 82 >=60 mL/min/1.7 3 m2 01/06/2025 1:37 PM EDT [facility] Comment:Estimated GFR was ca lculated using the CKD-EPIcr (2020) equation refit without race. The equation is recommended by the National Kidney Foundation - [place] [employer] of Nephrology Task Force. Blood VENOUS STRUCTURE / Unknown Port / Unknown 01/06/2025 1:13 PM EDT 01/06/2025 1:17 PM EDT Tacho Echavarria MD CHEMISTRY ORDERABLES Final Result [facility] [address] [place] [phone] * (ABNORMAL) CBC WITH DIFF (01/06/2025 1:13 PM EDT) WBC 5.1 3.7 - 10.3 x10(3)/mc L 01/06/2025 1:22 PM EDT [facility] RBC 3.61(L) 3.90 - 5.20 x10(6)/mc L 01/06/2025 1:22 PM EDT [facility] Hgb 11.0(L) 11.2 - 15.7 g/dL 01/06/2025 1:22 PM EDT [facility] Hct 33.2(L) 34.0 - 45.0 % 01/06/2025 1:22 PM EDT [facility] MCV 92.0 80.0 - 100.0 fL 01/06/2025 1:22 PM EDT [facility] MCH 30.5 26.0 - 34.0 pg 01/06/2025 1:22 PM EDT [facility] MCHC 33.1 30.7 - 35.5 g/dL 01/06/2025 1:22 PM EDT [facility] RDW 14.5 <=14.9 % 01/06/2025 1:22 PM EDT [facility] Platelet 170 155 - 369 x10(3)/mc L 01/06/2025 1:22 PM EDT [facility] MPV 8.8 8.8 - 12.5 fL 01/06/2025 1:22 PM EDT [facility] Neut # Prelim 3.3 1.6 - 6.1 x10(3)/mc L 01/06/2025 1:22 PM EDT [facility] Comment:Preliminary automate d absolute neutrophil count. Value may change if manual differential is indicated. Neut Percent 65.2 % 01/06/2025 1:22 PM EDT [facility] Comment:Neutrophils equals s egs plus bands Imm Gran% 0.2 % 01/06/2025 1:22 PM EDT [facility] Comment:Automated count of m etamyelocytes, myelocytes and promyelocytes. Lymph Percent 28.1 % 01/06/2025 1:22 PM EDT [facility] Massac Percent 4.3 % 01/06/2025 1:22 PM EDT [facility] Eos Percent 1.8 % 01/06/2025 1:22 PM EDT [facility] Baso Percent 0.4 % 01/06/2025 1:22 PM EDT [facility] Neut # 3.3 1.6 - 6.1 x10(3)/mc L 01/06/2025 1:22 PM EDT [facility] Comment:Neutrophils equals s egs plus bands IMMGRAN# 0.0 0.0 - 0.1 x10(3)/mc L 01/06/2025 1:22 PM [facility] Comment:Automated count of m etamyelocytes, myelocytes and promyelocytes. An absolute IG <0.1 is reported as 0.0. Lymph # 1.4 1.2 - 3.9 x10(3)/mc L 01/06/2025 1:22 PM EDT [facility] [place] # 0.2(L) 0.3 - 0.9 x10(3)/mc L 01/06/2025 1:22 PM EDT [facility] Eos# 0.1 0.0 - 0.5 x10(3)/mc L 01/06/2025 1:22 PM EDT [facility] Baso # 0.0 0.0 - 0.1 x10(3)/mc L 01/06/2025 1:22 PM [facility] Blood VENOUS STRUCTURE / Unknown Port / Unknown 01/06/2025 1:13 PM EDT 01/06/2025 1:17 PM EDT Tacho Echavarria MD HEMATOLOGY ORDERABLES Final Result [facility] 1 [place] [address] documented in this encounter Visit Diagnoses Diagnosis 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)- Primary documented in this encounter Additional Health Concerns Assessment Noted Time PHQ-9 Depression Total Score: 17 024 8:39 AM EST PHQ-2 Depression Total Score: 5 07/07/20 24 8:39 AM EST documented as of this encounter Care Teams Chair Installer Relationship Specialty [place] [address] [place] [address] PCP - General 06/21/10 Arlyn Schmidt MD [address] [place], [place] [phone] Consulting Physician Internal Medicine-Endocrinology, Diabetes & Metabolism 11/28/20 Tacho Echavarria MD 1 [place] [address] Internal Medicine-Medical Oncology 11/12/23 Matt Ulrich MD 1 [place], [place] [phone] Surgery-Surgical Oncology 12/04/23 Eze Brock Pastoral Care 12/13/23 Annette Walker MSW Railroad Car Letterer 05/13/24 Batool Celis MD 1 [facility] [place] [address] Radiation Oncologist Radiology-Radiation Oncology 06/08/24 documented as of this encounter
--- OUTSIDE RECORDS SUMMARY | 2025-01-31 16:01 | XMS_ITS | Encounter Summary ---
Author Organization [place] [address] Care Team Providers Care Import Coordination And Production Head Name Role Phone Chetna Cedeno MD Primary Care Provider [phone] Arlyn Schmidt MD Unavailable [phone] Tacho Echavarria MD Unavailable [phone] Matt Ulrich MD Unavailable [phone] Eze Brock Unavailable Annette Walker Unavailable [phone] Batool Celis MD Unavailable [phone] Reason for Visit * Reason Comments Pharmacy Migraine Medication Management Qulipta Encounter Details Date Type Department Care Team (Latest Contact Info) Description 12/31/2024 Specialty Pharmacy [facility] [address] [place] [address] Annamarie Mark CPhT Pharmacy Migraine Medication Management ([facility]ulipta) Social History Tobacco Use Types Packs/Day Years [...] th e electric, gas, oil, or water [employer] threatened to shut off services in your [...] any clubs o r organizations such as tenriism groups, unions, fraternal or athletic groups, or [...] Recorded PHQ-2 Total Score 5 07/07/2024 [facility] of Occupat ional Health - Occupational Stress [...] any time in the past 12 m [facility], were you homeless or living in a prison (including now)? No 11/07/2023 [facility] IP Transportation Answer D ate [...] No 12/06/2022 2:08 PM EDT Macarena Marion CCMSharonda documented in this encounter Progress Notes * Annamarie Mark CPhT - 12/31/2024 11:07 AM EDT [facility] Qulipta RTS til 01/02 * Charlotte Martino CPhT - 12/31/2024 11:07 AM EDT Specialty Pharmacy Refill Coordination Note Contacted [facility] today regarding refills of Qulipta. Copay amount: $0 Sent Dyn message. Patient informed of copay. * Glenna Vo CPhT - 12/31/2024 11:07 AM EDT Specialty Pharmacy Refill Coordination Note Contacted [facility] today regarding refills of Qulipta. Medication to be delivered by [facility] on 01/07. Copay amount: $0 Sent Dyn message. Patient informed of copay. * Glenna Vo CPhT - 12/31/2024 11:07 AM EDT [facility] Medication has been released from [facility] but did not realize patient only has a PO Box on file. We arenot able to deliver to PO Boxes. We will need a real home address on file to deliver medication to her. Tried to call but VM not set up. Will send mychart message as well. Please notify Mail order once we get a response. Thanks! 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 documented in this encounter Plan of Treatment Upcoming Encounters Date Type Department Care Team (Late st Contact Info) Description 02/02/2025 11:20 AM EDT Telemedicine [facility] NE[facility]ECT[facility] [address] [facility] [address] [place] [address] Samm Ledesma APRN [address] [facility] [address] [place], [place] [id number] 02/04/2025 11:00 AM EDT Appointment [facility] Women's Wellness [facility] [address] Tacho Echavarria MD [address] [place] [address] Naya García PA-C [address] [place] [address] 254 [place] [address] 02/04/2025 2:00 PM EDT Appointment [facility] [place], [place] [phone] Tacho Echavarria MD [address] [place] [address] [id number] 02/04/2025 2:20 PM EDT Appointment [facility] Medical Oncology [place], [place] [phone] Tacho Echavarria MD [address] [place] [address] 02/10/2025 10:30 AM EDT Office Visit [address] [place] [address] Sin Tran MD [address] [facility] [place] [address] 03/02/2025 11:40 AM EDT Office [facility] [address] [place] [address] [place] [address] [place] [address] 03/02/2025 12:45 PM EDT Procedure visit [facility] NE[facility] [address] [place] [address] Samm Ledesma APRN [address] [facility] [facility] [address] [place] [address] 04/29/2025 9:15 AM EDT Appointment [facility] [address] Batool Celis MD [address] [place] [address] [place] [address] documented as of this encounter Goals Goal Patient Goal Type Associated Problems Recent Progress Patient-Stated? Author Blood Pressure < 140/90 Blood Pressure 129/95(01/15 2:00 PM EDT) No Chetna Cedeno MD Breast Health Breast Health On track(2024 12:01 PM EST) No Jasmin Porter, RALU Note: Patient acknowledges understanding of new diagnosis, [...] documented as of this encounter Care Teams Import Coordination And Production Head Relationship Specialty [place] [address] [place] [address] PCP - General 06/21/10 Arlyn Schmidt MD [address] [place] [address] Consulting Physician Internal Medicine-Endocrinology, Diabetes & Metabolism 11/28/20 Tacho Echavarria MD 1 [place], [place] [id number] Internal Medicine-Medical Oncology 11/12/23 Matt Ulrich MD 1 [place] [address] Surgery-Surgical Oncology 12/04/23 Eze Brock Pastoral Care 12/13/23 Annette Walker, ARACELI Assistant Winemaker 05/13/24 Batool Celis MD 1 [facility] [place] [address] Radiation Oncologist Radiology-Radiation Oncology 06/08/24 documented as of this encounter
--- OUTSIDE RECORDS SUMMARY | 2025-01-31 16:01 | XMS_ITS | Encounter Summary ---
Author Organization [place] [address] Care Team Providers Care Explosive Ordnance Specialist Name Role Phone Chetna Cedeno MD Primary Care Provider [phone] Arlyn Schmidt MD Unavailable [phone] Tacho Echavarria MD Unavailable [phone] Matt Ulrich MD Unavailable [phone] Eze Brock Unavailable Annette Walker Unavailable [phone] Batool Celis MD Unavailable [phone] Encounter Details Date Type Department Care Team (Late st Contact Info) Description 01/28/2025 Orders Only [facility] Medical Oncology [place], [place] [phone] Tacho Echavarria MD [address] [place] [address] [phone] Invasive ductal carcinoma of breast, female, right (HCC) (Primary Dx) Social History Tobacco Use [...] from your doctor or pharmacy? Never 11/07/2023 [facility] Utilities Answer Date Recorded In [...] Recorded PHQ-2 Total Score 5 07/07/2024 [facility] of Occupat ional Health - Occupational Stress [...] any time in the past 12 m [facility], were you homeless or living in a group home (including now)? No 11/07/2023 [facility] IP Transportation Answer D ate Recorded [...] AM EDT Telemedicine [facility] NE[facility] [address] [facility] [address] [place] [address] Samm Ledesma APRN [address] [facility] [address] [place], [place] [phone] 02/04/2025 11:00 AM EDT Appointment [facility] Women's Wellness [facility] [place] [address] Tacho Echavarria MD [address] [place] [address] Naya García PA-C [address] [place] [address] 254 [place] [address] 02/04/2025 2:00 PM EDT Appointment [place] [address] Tacho Echavarria MD [address] [place] [address] [phone] 02/04/2025 2:20 PM EDT Appointment [facility] Medical Oncology [place], [place] [phone] Tacho Echavarria MD [address] [place] [address] 02/10/2025 10:30 AM EDT Office Visit [address] [place] [address] Sin Tran MD [address] [place] [address] 03/02/2025 11:40 AM EDT [facility] [place] [facility] [address] [place] [address] [place] [address] [place] [address] 03/02/2025 12:45 PM EDT Procedure visit [facility] [address] [facility] [address] [facility] [address] [place] [address] Samm Ledesma, MEDICAL AFFAIRS MANAGER [address] [facility] [address] [place] [address] 04/29/2025 9:15 AM EDT Appointment [place] [address] Batool Celis MD [address] [place] [address] [place] [address] Scheduled Orders Name Type Priority Associated Diagnoses Orde r Schedule CBC WITH DIFF Lab STAT Invasive ductal carcinoma of breast, female, right (HCC) 1 Occurrences starting 01/28/2025 until 01/28/2026 COMPREHENSIVE METABOLIC PANEL Lab STAT Invasive ductal carcinoma of breast, female, right (HCC) 1 Occurrences starting 01/28/2025 until 01/28/2026 IRON+TIBC Lab Routine Invasive ductal carcinoma of breast, female, right (HCC) 1 Occurrences starting 01/28/2025 until 01/28/2026 VITAMIN B12/ FOLIC ACID Lab Routine Invasive ductal carcinoma of breast, female, right (HCC) 1 Occurrences starting 01/28/2025 until 01/28/2026 documented as of this encounter Goals Goal Patient Goal Type Associated Problems Recent Progress Patient-Stated? Author Blood Pressure < 140/90 Blood Pressure 129/95(01/15 2:00 PM EDT) No Chetna Cedeno MD Breast [facility] Breast [facility] On track(2024 12:01 PM EST) No Jasmin Porter RN Note: Patient acknowledges understanding of new diagnosis, plan of care, available resources and how to contact Nurse Navigator with any future questions or concerns. Breast [facility] Breast [facility] No Jasmin Porter RN Note: Patient will be compliant with monthly SBE and is aware of who to contact for any unusual or concerning findings. Maintain a healthy diet, exercise regularly and maintain an ideal body weight General No Sanam Julio MA documented as of this encounter Visit Diagnoses Diagnosis Invasive ductal carcinoma of breast, female, right (HCC)- Primary documented in this encounter Additional Health Concerns Assessment Noted Time PHQ-9 Depression Total Score: 17 024 8:39 AM EST PHQ-2 Depression Total Score: 5 07/07/20 24 8:39 AM EST documented as of this encounter Care Teams Explosive Ordnance Specialist Relationship Specialty [place] [address] [place] [id number] PCP - General 06/21/10 Arlyn Schmidt MD [address] [place] [address] Consulting Physician Internal Medicine-Endocrinology, Diabetes & Metabolism 11/28/20 Tacho Echavarria MD 1 [place] [address] Internal Medicine-Medical Oncology 11/12/23 Matt Ulrich MD 1 [place] [address] Surgery-Surgical Oncology 12/04/23 Eze Brock Pastoral Care 12/13/23 Annette Walker, RESOURCE PARAPROFESSIONAL Chief Revenue Officer 05/13/24 Batool Celis MD [address] [place] [address] [place] [address] Radiation Oncologist Radiology-Radiation Oncology 06/08/24 documented as of this encounter
--- OUTSIDE RECORDS SUMMARY | 2025-01-31 16:01 | XMS_ITS | Clinical Summary ---
Author Organization [facility] Address [address] [place] [address] Phone Care Team Providers Care Slate Splitter Name Role Phone Outside, Provider Unavailable [phone] Conditions or Problems No information available. Medications No information available. Medications Administered No information available. Allergies, Adverse Reactions, Alerts No information available. Results No information available. Plan of Care No information available. Procedures No information available. Vital Signs No information available. Immunizations No information available. Advance Directives No information available.
--- OUTSIDE RECORDS SUMMARY | 2025-01-31 16:01 | XMS_ITS | Encounter Summary ---
Author Organization [place] [address] Care Team Providers Care Design Consultant Name Role Phone Chetna Cedeno MD Primary Care Provider [phone] Arlyn Schmidt MD Unavailable [phone] Tacho Echavarria MD Unavailable [phone] Matt Ulrich MD Unavailable [phone] Eze Brock Unavailable Annette Walker Unavailable [phone] Batool Celis MD Unavailable [phone] Reason for Visit * Reason Comments Pharmacy Oncology Management Pharmacy Reassessment abemaciclib (Verze nio) Encounter Details Date Type Department Care Team (Latest Contact Info) Description 12/25/2024 Specialty Pharmacy [facility] [address] [place] [address] Hilary Rivas, [facility] Pharmacy Oncology Management; Pharmacy Reassessment (abemaciclib (Verzenio)) Social History Tobacco Use Types Packs/Day Years [...] from your doctor or pharmacy? Never 11/07/2023 [facility] Utilities Answer Date Recorded In [...] often do you attend chur ch or denominational services? 1 to 4 times per year 11/07/2023 Do you belong to any clubs o r organizations such as uatsdin groups, unions, fraternal or athletic groups, or [...] any time in the past 12 m [facility], were you homeless or living in a alf (including now)? No 11/07/2023 [facility] IP Transportation Answer D ate [...] documented in this encounter Progress Notes * Rob Hilary, [facility] - 12/25/2024 10:18 AM EDT Specialty Pharmacy - Hematology/Oncology Reassessment Primary Senior Underwriter/Oncologist: Dr. Jericho Cole is a 59 y.o. female, who was contacted for a reassessment of adjuvant abemaciclibfor breast cancer. Missed doses: yes Medication Adherence What concerns does the patient have in regards to their medications: Fell asleep and missed one dose in the evening, discussed that if this becomes a frequent occurrence would consider setting an alarm. Otherwise excellent compliance. Patient reported X missed doses in the last month: 1 Any gaps in refill history greater than 2 weeks in the last 3 months: no Demonstrates understanding of importance of adherence: yes Informant: patient Reliability of informant: reliable Provider-estimated medication adherence level: 90-100% Reasons for non-adherence: no problems identified Adherence tools used: medication list Confirmed plan for next specialty medication refill: delivery by pharmacy Side effects: yes Adverse Effects Fatigue: Pos Ulcers/sores: Pos (Comment: around mouth) *All other systems reviewed and are negative Objective Lab Results Component Value Date CREATININE 0.75 12/10/2024 Lab Results Component Value Date WBC 5.1 12/10/2024 HGB 9.9 (L) 12/10/2024 HCT 30.2 (L) 12/10/2024 PLT 174 12/10/2024 NEUTABSPRE 3.2 12/10/2024 NEUTROABS 3.2 12/10/2024 LYMPHSABS 1.5 12/10/2024 MONOSABS 0.3 12/10/2024 EOSABS 0.1 12/10/2024 BASOABS 0.0 12/10/2024 Lab Results Component Value Date ALT 13 12/10/2024 AST 21 12/10/2024 ALKPHOS 110 12/10/2024 LABBILI 0.4 12/10/2024 BILIDIR <0.2 11/06/2022 PROT 6.3 (L) 12/10/2024 INR 0.99 11/29/2023 Current Outpatient Medications - WARNING: List may be incomplete due to filtering Medication Sig abemaciclib Take 1 Tablet by mouth 2 times daily. Verzenio Take 1 Tablet by mouth 2 times daily. albuterol Inhale 2 Puffs into the lungs every 6 hours as needed for Wheezing. anastrozole Take 1 Tablet by mouth daily. ARIPiprazole Take 1 Tablet by mouth daily. atogepant Take 1 Tablet by mouth daily. Botox dicyclomine Take 1 Capsule by mouth 3 times daily. for abdominal cramps DULoxetine Take 1 Capsule by mouth daily. ergocalciferol Take 1 Capsule by mouth once a week. fluticasone furoate-vilanteroL Inhale 1 Puff into the lungs daily. fluticasone propionate 1 [place] by Nasal route daily. Aerochamber MV 1 Each by [facility]Non-Drug; Combo Route) route as needed. lidocaine-prilocaine Apply dime size amount to port area 30 minutes prior to port access. LORazepam Take 1 Tablet by mouth 2 times daily as needed for Anxiety (or Insomnia). losartan Take 1 Tablet by mouth daily. (Patient taking differently: Take 50 mg by mouth daily. onlyif BP elevated) MAGIC MOUTHWASH (LIDO/DIPHEN/NYSTAT) ORAL COMPOUND Swish and Swallow 15 mL by mouth every 3 to 4 hours as needed for Other. This is a compounded RX (Nystatin Susp 200ml, Diphenhydramine 170ml, Lidocaine 2% 50ml, Maldonado syrup 30ml) Meclizine Take 50 mg by mouth 2 times daily. for vertigo x 3 days mometasone Apply topically daily. omeprazole Take 1 Capsule by mouth daily. ondansetron Take 1 Tablet by mouth every 8 hours as needed for Nausea. promethazine-dextromethorphan Take 5 mL by mouth 3 times daily as needed. No driving rOPINIRole Take 1 Tablet by mouth nightly as needed. for up to 30 days. tiZANidine Take 1 tab nightly for cervicogenic headache and 1/2 tab daily prn for breakthrough pain. DO NOT TAKE AND DRIVE ubrogepant Take one tablet by mouth at onset of migraine. May repeat dose in 2 hours one time up toa maximum of 200mg per 24 hours. UNABLE TO FIND Fentanyl 500 mcg/ml in pain pump. 60 mcg/day Assessment Oncology: Reassessment performed with patient via telephone. Patient continues on abemaciclib 100 mg PO twicedaily. Patient reports taking medication as prescribed and has tolerated medication well. Patient has noticed an increase in fatigue since increasing the dose, still able to perform ADLs. Also reports a sore on the outside of the mouth, does not have history of cold sores. Advised to keep lips moisturized, continue to monitor and report if this worsens. Denies sores on inside of mouth or diarrhea. Effectiveness: adjuvant therapy Medication reconciliation was performed, allergy list remains the same. No clinically significant drug interactions identified. Therapy reviewed and found to be appropriate and still warranted. Progress towards goals of therapy: > 90% adherent. Goals of therapy assessed with provider. Willcontinue to follow to ensure medication goals align. Drug Interactions Clinically relevant drug interactions identified: no Plan Pharmacist does not recommend any changes to therapy. Patient to continue therapy as prescribed andis aware to call with questions/concerns. Patient has a follow up appointment on 01/06/2025. Clinical Assessment Follow-up: 1 year(s) Interim Assessment: next office visit for plan for dose escalation, Tiago results Reviewed plan of care, expected outcomes, and goals of therapy with patient who verbalized understanding and is agreeable with plan. Aisha Rivas, PharmD, BCPS, OP Oncology Pharmacist 12/25/2024 10:55 AM * Madelyn Roland RPH - 12/25/2024 10:18 AM EDT [facility] Per secure chat with provider. Will hold off on dose escalation at this time. Plan to re-evaluate in 1 month. documented in this encounter Plan of Treatment Upcoming Encounters Date Type Department Care Team (Late st Contact Info) Description 02/02/2025 11:20 AM EDT Telemedicine [facility] [address] [place] [address] Samm Ledesma, RACKING TECHNICIAN [address] [place] [address] 02/04/2025 11:00 AM EDT Appointment [facility] Women's Wellness [facility] [place] [address] Tacho Echavarria MD 1 [place] [address] Naya García PA-C [address] [place] [address] [address] [place] [address] 02/04/2025 2:00 PM EDT Appointment [place] [address] Tacho Echavarria MD [address] [place] [address] 02/04/2025 2:20 PM EDT [facility]ointment [facility] [place] [address] Tacho Echavarria MD [address] [place] [address] 02/10/2025 10:30 AM EDT Office Visit [facility] [place] [address] [place] [address] [address] [place] [address] Sin Tran MD [address] [place] [address] 03/02/2025 11:40 AM EDT Office Visit [facility] [place] [address] [place] [address] [place] [address] [place] [address] 03/02/2025 12:45 PM EDT Procedure visit [facility] [address] [place] [address] Jamielorna Samm Dillon, RACKING TECHNICIAN [address] [place], [place] [id number] 04/29/2025 9:15 AM EDT Appointment [facility] [place] [address] Batool Celis MD [address] [place] [address] [place] [address] documented as of this encounter Goals Goal Patient Goal Type Associated Problems Recent Progress Patient-Stated? Author Blood Pressure < 140/90 Blood Pressure 129/95(01/15 2:00 PM EDT) No Chetna Cedeno MD Breast [facility] Breast [facility] On track(2024 12:01 PM EST) No Jasmin Porter, RAUL Note: Patient acknowledges understanding of new diagnosis, plan of care, available resources and how to contact Nurse Navigator with any future questions or concerns. Breast [facility] Breast Health No Jasmin Porter, RAUL [...] documented as of this encounter Care Teams Design Consultant Relationship Specialty [place] [address] [place] [id number] PCP - General 06/21/10 Arlyn Schmidt MD [address] [place], [place] [address] Consulting Physician Internal Medicine-Endocrinology, Diabetes & Metabolism 11/28/20 Tacho Echavarria MD 1 [place] [address] Internal Medicine-Medical Oncology 11/12/23 Matt Ulrich MD 1 [place] [address] Surgery-Surgical Oncology 12/04/23 Eze Brock Pastoral Care 12/13/23 Annette Walker, [facility] Ending Machine Operator 05/13/24 Batool Celis MD 1 [facility] [place] [address] Radiation Oncologist Radiology-Radiation Oncology 06/08/24 documented as of this encounter
--- OUTSIDE RECORDS SUMMARY | 2025-01-31 16:02 | XMS_ITS | Encounter Summary ---
Author Organization [place] [address] Care Team Providers Care Road Advisor Name Role Phone Chetna Cedeno MD Primary Care Provider [phone] Arlyn Schmidt MD Unavailable [phone] Tacho Echavarria MD Unavailable [phone] Matt Ulrich MD Unavailable [phone] Eze Brock Unavailable Annette Walker Unavailable [phone] Batool Celis MD Unavailable [phone] Reason for Visit * Reason Comments Medication Refill Encounter Details Date Type Department Care Team (Late st Contact Info) Description 01/15/2025 Refill [facility] [place] [address] [place] [address] [place] [address] [place] [address] Medication Refill Social History Tobacco [...] your doctor or pharmacy? Never 11/07/2023 [facility] Utilities Answer Date Recorded In the [...] often do you attend chur ch or moravian services? 1 to 4 times per year [...] in a longterm (including now)? No 11/07/2023 [facility] IP Transportation [...] encounter Miscellaneous Notes * Telephone Encounter - Destiny Alejandre CCMA - 01/18/2025 8:38 AM EDT Acute only Denied documented in this encounter Plan of Treatment Upcoming Encounters Date Type Department Care Team (Late st Contact Info) Description 02/02/2025 11:20 AM EDT Telemedicine [facility] [address] [facility] [address] [place] [id number] Samm Ledesma, MEDICAL RECORDS CLERK [address] [place], [place] [id number] 02/04/2025 11:00 AM EDT Appointment [facility] Women's Wellness [facility] [place] [address] Tacho Echavarria MD [address] [place] [address] Naya García PA-C [address] [place] [address] 254 [place] [address] 02/04/2025 2:00 PM EDT Appointment [place] [address] Tacho Echavarria MD [address] [place] [address] 02/04/2025 2:20 PM EDT Appointment [facility] [place], [place] [address] Tacho Echavarria MD [address] [place] [id number] 02/10/2025 10:30 AM EDT Office Visit [facility] [address] [facility] [address] [place] [address] Sin Tran MD [address] [place] [address] 03/02/2025 11:40 AM EDT Office Visit [facility] [place] [address] [place] [address] [place] [address] [place] [address] 03/02/2025 12:45 PM EDT Procedure visit [facility] [address] [facility] [place] [address] Samm Ledesma, MEDICAL RECORDS CLERK [address] [facility] [address] [place] [address] 04/29/2025 9:15 AM EDT Appointment [facility] RAD ONC [place], [place] [phone] Batool Celis MD [address] [place] [address] CANCER CARE [place], [place] [id number] documented as of this encounter Goals Goal [...] as of this encounter Visit Diagnoses Diagnosis Acute bacterial sinusitis Acute sinusitis, unspecified documented in this encounter Additional Health Concerns Assessment Noted Time PHQ-9 Depression Total Score: 17 024 8:39 AM EST PHQ-2 Depression Total Score: 5 07/07/20 24 8:39 AM EST documented as of this encounter Care Teams Road Advisor Relationship Specialty Start [place] [address] [place] [address] PCP - General 06/21/10 Arlyn Schmidt MD [address] [place], [place] [id number] Consulting Physician Internal Medicine-Endocrinology, Diabetes & Metabolism 11/28/20 Tacho Echavarria MD [address] [place] [address] Internal Medicine-Medical Oncology 11/12/23 Matt Ulrich MD 1 [place] [address] Surgery-Surgical Oncology 12/04/23 Eze Brock Pastoral Care 12/13/23 Annette Walker MSW Pattern Hand 05/13/24 Batool Celis MD [address] [place] [address] [place] [address] Radiation Oncologist Radiology-Radiation Oncology 06/08/24 documented as of this encounter
--- OUTSIDE RECORDS SUMMARY | 2025-01-31 16:02 | XMS_ITS | Encounter Summary ---
Author Organization [place] [address] Care Team Providers Care Electric Wirer Name Role Phone Chetna Cedeno MD Primary Care Provider [phone] Arlyn Schmidt MD Unavailable [phone] Tacho Echavarria MD Unavailable [phone] Matt Ulrich MD Unavailable [phone] Eze Brock Unavailable Annette Walker Unavailable [phone] Batool Celis MD Unavailable [phone] Encounter Details Date Type Department Care Team (Latest Contact Info) Description 01/27/2025 Results Follow-Up [facility] 1 [place] [address] Benito Snell, PharmD PHARMACOGENOMIC PANEL Social History Tobacco Use Types Packs/Day Years [...] Date Recorded PHQ-2 Total Score 5 07/07/2024 [facility] - Occupational Stress Questionnaire Answer Date [...] in the past 12 m [facility], were you homeless or living in a retirement (including now)? No 11/07/2023 [facility] IP Transportation Answer D ate Recorded [...] HECTOR [address] [facility] [address] [place], [place] [id number] Samm Ledesma, HEAD OF SALES PROMOTION [address] [place], [place] [address] 02/04/2025 11:00 AM EDT Appointment [facility] Women's Wellness [facility] [place] [address] Tacho Echavarria MD [address] [place] [address] Naya García PA-C [address] [place] [address] 254 [place] [address] 02/04/2025 2:00 PM EDT Appointment [place] [address] Tacho Echavarria MD [address] [place] [address] 02/04/2025 2:20 PM EDT Appointment [facility] On[facility] [place], [place] [address] Tacho Echavarria MD [address] [place] [address] 02/10/2025 10:30 AM EDT Office Visit [address] [address] Sin Tran MD [address] [place] [address] [place] [address] 03/02/2025 11:40 AM EDT [place] [address] [place] [address] [place] [address] [place] [address] 03/02/2025 12:45 PM EDT Procedure visit [facility] [address] [place] [address] Samm Ledesma, LEYLA [address] [place] [address] 04/29/2025 9:15 AM EDT Appointment [facility] RAD ONC [place], [place] [address] Batool Celis MD [address] [place] [address] [facility] [place], [place] [id number] documented as of this encounter Goals Goal [...] as of this encounter Visit Diagnoses Diagnosis CYP2B6 intermediate metabolizer (HCC)- Primary [id number] rapid metabolizer (HCC) 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 hypercoagulable state documented in this encounter Additional Health Concerns Assessment Noted Time PHQ-9 Depression Total Score: 17 024 8:39 AM EST PHQ-2 Depression Total Score: 5 07/07/20 24 8:39 AM EST documented as of this encounter Care Teams Electric Wirer Relationship Specialty [place] [address] [place] [address] PCP - General 06/21/10 Arlyn Schmidt MD [address] [place] [address] Consulting Physician Internal Medicine-Endocrinology, Diabetes & Metabolism 11/28/20 Tacho Echavarria MD 1 [place], [place] [address] Internal Medicine-Medical Oncology 11/12/23 Matt Ulrich MD 1 [place] [address] Surgery-Surgical Oncology 12/04/23 Eze Brock Pastoral Care 12/13/23 Annette Walker, ARACELI Integration Software Engineer 05/13/24 Batool Celis MD 1 [facility] [place] [address] Radiation Oncologist Radiology-Radiation Oncology 06/08/24 documented as of this encounter
--- OUTSIDE RECORDS SUMMARY | 2025-01-31 16:02 | XMS_ITS | Encounter Summary ---
Author Organization [place] [address] Care Team Providers Care Rn Case Management Name Role Phone Chetna Cedeno MD Primary Care Provider [phone] Arlyn Schmidt MD Unavailable [phone] Tacho Echavarria MD Unavailable [phone] Matt Ulrich MD Unavailable [phone] Eze Brock Unavailable Annette Walker Unavailable [phone] Batool Celis MD Unavailable [phone] Reason for Visit * Reason Comments Pharmacy Migraine Medication Management Qulipta Encounter Details Date Type Department Care Team (Latest Contact Info) Description 01/28/2025 Specialty Pharmacy [facility] [address] [place] [address] Sheridan Arellano CPhT Pharmacy Migraine Medication Management (Qulipta) Social [...] doctor or pharmacy? Never 11/07/2023 [facility] Utilities Answer Date Recorded In the past 12 months has th e electric, gas, oil, or water CLARED threatened to shut off services in your [...] often do you attend chur ch or mormonism services? 1 to 4 times per year 11/07/2023 Do you belong to any clubs o r organizations such as orthodoxy groups, unions, fraternal or athletic groups, or [...] Date Recorded PHQ-2 Total Score 5 07/07/2024 [facility] [place] - Occupational Stress [...] in the past 12 m [facility], were you homeless or living in a prison (including now)? No 11/07/2023 [facility] IP Transportation Answer D ate Recorded [...] documented in this encounter Progress Notes * Sheridan Arellano CPhT - 01/28/2025 10:43 AM EDT Specialty Pharmacy Refill Coordination Note Contacted [facility] today regarding refills of Qulipta. Copay amount: $0 Sent Nistica message. Patient informed of copay. documented in this encounter Plan of Treatment Upcoming Encounters Date Type Department Care Team (Late st Contact Info) Description 02/02/2025 11:20 AM EDT Telemedicine [facility] [address] [place] [phone] Samm Ledesma, FLOOR ASSOCIATE [address] [place], [place] [address] 02/04/2025 11:00 AM EDT Appointment [facility] Women's Wellness [place] [address] Tacho Echavarria MD [address] [place] [address] Naya García PA-C [address] [place] [address] 254 [place] [address] 02/04/2025 2:00 PM EDT Appointment [place] [address] Tacho Echavarria MD [address] [place] [address] 02/04/2025 2:20 PM EDT Appointment [facility] Medical Oncology [place], [place] [address] Tacho Echavarria MD [address] [place] [id number] 02/10/2025 10:30 AM EDT Office Visit [facility] [address] [facility] [address] [place] [address] Sin Tran MD [address] [place] [address] 03/02/2025 11:40 AM EDT Office Visit [facility] [place] [address] [place] [address] [place] [address] [place] [address] 03/02/2025 12:45 PM EDT Procedure visit [facility] [address] [place] [address] Samm Ledesma, FLOOR ASSOCIATE [address] [place] [address] 04/29/2025 9:15 AM EDT Appointment [facility] RAD ONC [place], [place] [phone] Batool Celis MD [address] [place] [address] [facility] [place], [place] [address] documented as of this encounter Goals Goal [...] documented as of this encounter Care Teams Rn Case Management Relationship Specialty [place] [address] [place] [address] PCP - General 06/21/10 Arlyn Schmidt MD [address] [place], [place] [address] Consulting Physician Internal Medicine-Endocrinology, Diabetes & Metabolism 11/28/20 Tacho Echavarria MD 1 [place] [address] Internal Medicine-Medical Oncology 11/12/23 Matt Ulrich MD 1 [place], [place] [phone] Surgery-Surgical Oncology 12/04/23 Eze Brock Pastoral Care 12/13/23 Annette Walker MSW Masking Machine Operator 05/13/24 Batool Celis MD [address] [place] [address] [place] [address] Radiation Oncologist Radiology-Radiation Oncology 06/08/24 documented as of this encounter
--- OUTSIDE RECORDS SUMMARY | 2025-01-31 16:02 | XMS_ITS | Encounter Summary ---
Author Organization [place] [address] Care Team Providers Care Equalizer Operator Name Role Phone Chetna Cedeno MD Primary Care Provider Arlyn Schmidt MD Unavailable [phone] Tacho Echavarria MD Unavailable [phone] Matt Ulrich MD Unavailable Eze Brock Unavailable Cheryl Nair RN Unavailable [phone] Annette Walker OVEN OPERATOR Unavailable [phone] Batool Celis MD Unavailable [phone] Encounter Details Date Type Department Care Team (Late st Contact Info) Description 12/03/2024 Social Work [facility] Cancer Care [facility] [place] [address] Sonny Fleming, OVEN OPERATOR Social History Tobacco Use Types Packs/Day [...] from your doctor or pharmacy? Never 11/07/2023 [facility] Utilities Answer Date Recorded In [...] Date Recorded PHQ-2 Total Score 5 07/07/2024 [facility] - Occupational [...] any time in the past 12 m [facility], were you homeless or living in a jail (including now)? No [facility] IP Transportation Answer D ate Recorded In [...] Progress Notes * Sonny Fleming MSW - 12/03/2024 4:32 PM EDT 12/03/24 1631 Dispensing Lead Assessment Referred By FARHAD Spears Disease/[place] [facility] Rn Outpatient Surgery Assignment Breast cancer Referral Location: Reason for Referral financial Identified Needs Adjustment to illness;Financial issues;Housing Social Work Interventions Education/Information;Brief Couseling/Support;Financial/Efren Pt is in need of financial assistance to get moved into an apartment. FARHAD Romo started to complete a [employer] application with the pt. FARHAD sent pt a W9 to be completed by her landlordand emailed back. Application is currently incomplete. FARHAD Spears may work on application or it will be completed when FARHAD Romo returns to the office. SW following. documented in this encounter Plan of Treatment Upcoming Encounters Date Type Department Care Team (Late st Contact Info) Description 02/02/2025 11:20 AM EDT Telemedicine [facility] [address] [place] [address] aSmm Ledesma, FIRE SPRINKLER INSPECTOR [address] [place] [address] 02/04/2025 11:00 AM EDT Appointment [facility] Women's Wellness [facility] [place] [address] Tacho Echavarria MD [address] [place] [address] Naya García PA-C [address] [facility] [facility] [address] [place] [address] 02/04/2025 2:00 PM EDT Appointment [place] [address] Tacho Echavarria MD [address] [place] [address] 02/04/2025 2:20 PM EDT Appointment [place] [address] Tacho Echavarria MD 1 [place] [address] 02/10/2025 10:30 AM EDT Office Visit [address] [place] [address] Sin Tran MD [facility] [place] [address] 03/02/2025 11:40 AM EDT Office Visit [facility] Mahm[place] [address] [place] [address] [place] [address] [place] [address] 03/02/2025 12:45 PM EDT Procedure visit [facility] [address] [place] [address] Samm Ledesma, FIRE SPRINKLER INSPECTOR [address] [place], [place] [id number] 04/29/2025 9:15 AM EDT Appointment [facility] [place] [address] Batool Celis MD [address] [facility] [place], [place] [id number] documented as of this encounter Goals Goal [...] documented as of this encounter Care Teams Equalizer Operator Relationship Specialty [place] [address] [place] [address] PCP - General 06/21/10 Arlyn Schmidt MD [address] [place] [address] Consulting Physician Internal Medicine-Endocrinology , Diabetes & Metabolism 11/28/20 Tacho Echavarria MD 1 [place] [address] Internal Medicine-Medical Oncology 11/12/23 Matt Ulrich MD 1 [facility] [place] [address] Surgery-Surgical Oncology 12/04/23 Eze Brock Pastoral Care 12/13/23 Cheryl Nair, RN Oncology Nurse Navigator 03/25/2412/13 Annette Walker, ARACELI Rn Outpatient Surgery 05/13/24 Batool Celis MD [address] [facility] [address] Radiation Oncologist Radiology-Radiation Oncology 06/08/24 documented as of this encounter
--- OUTSIDE RECORDS SUMMARY | 2025-01-31 16:02 | XMS_ITS | Clinical Summary ---
Author Organization [facility] Address [address] [facility] [address] [place] [address] Phone Care Team Providers Care Grounds Keeper Name Role Phone Chetna Cedeno MD Primary Care Provider [phone] Arlyn Schmidt MD Unavailable [phone] Tacho Echavarria MD Unavailable [phone] Matt Ulrich MD Unavailable [phone] Eze Brock Unavailable Annette Walker PAINTER AND DECORATOR APPRENTICE Unavailable [phone] Batool Celis MD Unavailable [phone] Allergies Active Allergy Reactions Criticality Noted Date Comments Adhesive Rash Low 07/06/2024 Amoxicillin Hives High 11/06/2022 Cefazolin Hives,Nausea And Vomiting High 01/06/2020 Hydromorphone Rash High 02/20/2021 itching Hydrocodone Hives High 05/01/2024 hives and face swelling Lactase Diarrhea 01/02/2025 Lactose Intolerance (Lactase) Diarrhea 04/24/2017 Methocarbamol Swelling High 03/07/2017 Morphine Shortness Of Breath High 01/06/2021 Varicella-Zoster Ge-As01b (Pf) Other (See Comments) 09/21/2019 Itchy rash Sumatriptan Swelling High 08/17/2020 Tongue swelled, jaw locked up, dizziness Silver Itching,Rash Medium 11/22/2024 Tegaderm dressing Tilactase Diarrhea Low 04/24/2017 Tree Nut Shortness Of Breath,Swelling High 01/02/2025 Tree Nuts Shortness Of Breath,Swelling 04/17/2017 Varicella-Zoster Immune Globulin (Human) Other (See Comments) 01/02/2025 Zoster Vaccine Live Hives Medium 07/13/2024 Medications * This document contains information received from the source organization and may not represent a complete record from that organization. Inhalational Spacing Device (AEROCHAMBER MV) Mis Spacer 1 Each by [facility].(Non-Drug; Combo Route) route as needed. 1 Device 020 Active tiZANidine (ZANAFLEX) 4 mg Oral TabletIndicatio ns:Chronic migraine without aura, intractable, with status migrainosus Take 1 tab nightly for cervicogenic headache and 1/2 tab daily prn for breakthrough pain. DO NOT TAKE AND DRIVE 45 Tablet 5 023 Active MAGIC MOUTHWASH (LIDO/DIPHEN/NY STAT) ORAL COMPOUNDIndicat ions:Mucositis Swish and Swallow 15 mL by mouth every 3 to 4 hours as needed for Other. This is a compounded RX (Nystatin Susp 200ml, Diphenhydramine 170ml, Lidocaine 2% 50ml, Maldonado syrup 30ml) 450 mL 1 12/09/19 24 6:05 PM EDT 024 Active dicyclomine (BENTYL) 10 mg Oral CapsuleIndicati ons:Abdominal cramps Take 1 Capsule by mouth 3 times daily. for abdominal cramps 30 Capsule 024 Active Meclizine (ANTIVERT) 50 mg Oral TabletIndicatio ns:Nausea,Verti go Take 50 mg by mouth 2 times daily. for vertigo x 3 days 6 Tablet 024 Active BOTOX 200 unit Inj Recon Soln 024 Active LORazepam (ATIVAN) 0.5 mg Oral TabletIndicatio ns:Anxiety about treatment Take 1 Tablet by mouth 2 times daily as needed for Anxiety (or Insomnia). 30 Tablet 024 Active albuterol (PROVENTIL HFA;VENTOLIN HFA) 90 mcg/actuation Inhl HFA Aerosol InhalerIndicati ons:Mild intermittent asthma, unspecified whether complicated Inhale 2 Puffs into the lungs every 6 hours as needed for Wheezing. 1 Each 024 Active fluticasone furoate-vilante roL (BREO ELLIPTA) 200-25 mcg/dose Inhl Disk with DeviceIndicatio ns:Mild intermittent asthma, unspecified whether complicated Inhale 1 Puff into the lungs daily. 1 Each 024 Active fluticasone propionate (FLONASE) 50 mcg/actuation Nasl [place], Suspension 1 [place] by Nasal route daily. 1 Each 024 Active UNABLE TO FIND Fentanyl 500 mcg/ml in pain pump. 60 mcg/day Active mometasone (ELOCON) 0.1 % Top CreamIndication s:Invasive ductal carcinoma of breast, female, right (HCC) Apply topically daily. 45 g 1 025 Active omeprazole (PRILOSEC) 40 mg Oral Capsule, Delayed Release(E.C.)In dications:Invas orin ductal carcinoma of right breast (HCC) Take 1 Capsule by mouth daily. 30 Capsule 2 025 Active anastrozole (ARIMIDEX) 1 mg Oral TabletIndicatio ns: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) Take 1 Tablet by mouth daily. 90 Tablet 3 10/09/19 25 1:18 PM EDT 025 Active ondansetron (ZOFRAN-ODT) 8 mg Oral Tablet, Rapid DissolveIndicat ions:Chemothera py-induced nausea Take 1 Tablet by mouth every 8 hours as needed for Nausea. 60 Tablet 1 025 Active promethazine-de xtromethorphan (PROMETHAZINE-D M) 6.25-15 mg/5 mL Oral SyrupIndication s:Acute bacterial sinusitis Take 5 mL by mouth 3 times daily as needed. No driving 100 mL 025 Active ARIPiprazole (ABILIFY) 5 mg Oral TabletIndicatio ns:Severe episode of recurrent major depressive disorder, without psychotic features (HCC),KAYODE (generalized anxiety disorder) Take 1 Tablet by mouth daily. 30 Tablet 1 025 Active abemaciclib (VERZENIO) 50 mg Oral TabletIndicatio ns: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) Take 1 Tablet by mouth 2 times daily. 56 Tablet 1 12/04/19 25 3:46 PM EDT 025 Active atogepant 60 mg Oral Tablet Take 1 Tablet by mouth daily. 30 Tablet 5 01/07/20 25 12:01 PM EDT 025 Active ubrogepant (UBRELVY) 100 mg Oral Tablet Take one tablet by mouth at onset of migraine. May repeat dose in 2 hours one time up to a maximum of 200mg per 24 hours. 10 Tablet 5 01/16/20 25 3:10 PM EDT 025 Active abemaciclib (VERZENIO) 100 mg Oral TabletIndicatio ns: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),Chemother apy-induced nausea Take 1 Tablet by mouth 2 times daily. 56 Tablet 4 01/14/20 25 2:34 PM EDT 025 Active rOPINIRole (REQUIP) 0.25 mg Oral TabletIndicatio ns:Restless leg syndrome Take 1 Tablet by mouth nightly as needed. for up to 30 days. 30 Tablet 5 025 Active losartan (COZAAR) 50 mg Oral TabletIndicatio ns:Essential hypertension, benign Take 1 Tablet by mouth daily. only if BP elevated 90 Tablet 025 Active DULoxetine (CYMBALTA) 30 mg Oral Capsule, Delayed Release(E.C.)In dications:React orin depression Take 1 Capsule by mouth daily. 30 Capsule 1 01/16/20 25 2:53 PM EDT 025 Active ketorolac (TORADOL) 10 mg Oral Tablet Take 10 mg by mouth once. 025 Active exemestane (AROMASIN) 25 mg Oral Tablet Take 25 mg by mouth daily. 025 Active oxybutynin (DITROPAN-XL) 5 mg Oral Tablet Extended Rel 24 hrIndications:H ot flashes related to aromatase inhibitor therapy Take 1 Tablet by mouth daily. 30 Tablet 01/16/20 25 2:53 PM EDT 025 Active ergocalciferol (VITAMIN D) 1,250 mcg (50,000 unit) Oral CapsuleIndicati ons:Vitamin D deficiency Take 1 Capsule by mouth once a week. 12 Capsule 01/16/20 25 2:53 PM EDT 025 Active lidocaine-prilo shauna (EMLA) Top CreamIndication s:Invasive ductal carcinoma of breast, female, right (HCC) APPLY DIME SIZE AMOUNT TO PORT AREA 30 MINUTES PRIOR TO PORT ACCESS. 30 g 1 025 Active lidocaine-prilo shauna (EMLA) Top CreamIndication s:Invasive ductal carcinoma of breast, female, right (HCC) Apply dime size amount to port area 30 minutes prior to port access. 30 g 1 025 2024 Discontinued Active Problems Patient Care Coordination No te Formatting of this note migh t be different from the original. [facility] Sin Tran MD Controlled Substance Protocol [...] or Functional capacity documented (EVERY VISIT)01/03/2022 Pharmacy: [address] [address] [facility] [phone] [facility] POA: josh as expected #[id number] Josh 08-05-2018 adm Josh 08-14- adm UDS 2-- adm Care gap audit completed by Medina White RN on 01/01/2022. 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 DDD (degenerative disc disease), lumbar Resolved Problems Problem Noted Date Diagnosed Date Resolved Date [place] syndrome 12/30/2020 10/16/2021 Assessment & Plan (12/30/2020 12:05 PM EDT): The patient has some features of cortisol excess. I doubt the patient has underlying Alie's disease. We will proceed with the work-up [...] 11/25/2012 08/10/2013 Overview (11/25/2012): occ contact. uses westcort as directed by me. Asthma 12/20/2010 03/26/2022 Encounters * This document contains information received from the source organization and may not represent a complete record from that organization. Date Type Department Care Team Description 01/29/2025 Telephone [facility] [place] [address] Tacho Echavarria MD Symptom Call (Diarrhea, body aches, vomiting) 01/29/2025 Social Work [facility] Cancer Care [facility] [place] [address] Sonny Fleming MSW 01/29/2025 Patient Outreach [facility] [place] [address] Shilpa Cline, statistics tutor Nurse Navigation 01/28/2025 Orders Only [place] [address] Tacho Echavarria MD Invasive ductal carcinoma of breast, female, right (HCC) (Primary Dx) 01/28/2025 Telephone [facility] [place], [place] [id number] Tacho Echavarria MD Patient Question (question about test result ) 01/28/2025 Specialty Pharmacy [facility] [address] [id number] Sheridan Arellano, [facility] Migraine Medication Management (Qulipta) 01/27/2025 Results Follow-Up [facility] [address] [place] [address] Benito Snell PharmD PHARMACOGENOMIC PANEL 01/21/2025 Orders Only [facility] [address] [place] [address] Osvaldo Johnson, Clerical Staff 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) (Primary Dx) 01/18/2025 Telephone [facility] [place] [phone] Tacho Echavarria MD 01/15/2025 1:30 PM EDT - 01/15/2025 11:59 PM EDT Hospital Encounter [place] [address] Tacho Echavarria MD Argent, Lillian L, APRN Hot flashes related to aromatase inhibitor therapy (Primary Dx); Vitamin D deficiency Discharge Disposition: Home or Self Care 01/15/2025 1:15 PM EDT - 01/15/2025 1:29 PM EDT Hospital Encounter [facility] [place], [place] [phone] Tacho Echavarria MD Invasive ductal carcinoma of breast, female, right (HCC) (Primary Dx); Cold sweat; Lightheaded; Shakiness Discharge Disposition: Home or Self Care 01/15/2025 11:55 AM EDT - 01/15/2025 1:14 PM EDT Hospital Encounter [facility] Physical Therapy [address] [place] [address] Kylah Lawler, PT Discharge Disposition: Home or Self Care 01/15/2025 [facility]ill [facility] [address] [place] [address] Chetna Cedeno MD Medication Refill 01/15/2025 Refill [facility] [address] [place] [address] Samm Ledesma APRN Medication Refill 01/15/2025 Refill [place] [address] Tacho Echavarria MD Medication Refill 01/15/2025 Plan of Care Documentation [facility] Physical Therapy [address] [place] [address] 01/15/2025 Plan of Care Documentation [facility] Physical Therapy [address] [place] [phone] 01/15/2025 Telephone [facility] [place] [phone] Tacho Echavarria MD Symptom Call (shakiness, light headed, cold chills, and breaking out in sweats ) 01/15/2025 Specialty Pharmacy [facility] [address] [place], [place] [phone] Annamarie Mark, [facility] Migraine Medication Management (Ubrelvy) 01/14/2025 Refill [place] [address] Tacho Echavarria MD Medication Refill 01/13/2025 2:56 PM EDT - 01/13/2025 11:59 PM EDT Hospital Encounter [facility] Physical Therapy [address] [place] [address] Shaunna Workman, PT Discharge Disposition: Home or Self Care 01/13/2025 Plan of Care Documentation [facility] Physical Therapy [address] [place] [phone] 01/11/2025 Orders Only [place] [address] Tacho Echavarria MD 01/07/2025 Specialty Pharmacy [facility] [address] [place] [address] Anisa Lozoya CPhT Pharmacy Oncology Management (Abemaciclib) 01/06/2025 1:14 PM EDT - 01/06/2025 11:59 PM EDT Hospital Encounter [facility] [place], [place] [phone] Tacho Echavarria MD Invasive ductal carcinoma of breast, female, right [...] site Discharge Disposition: Home or Self Care 01/06/2025 12:56 PM EDT - 01/06/2025 1:13 PM EDT Hospital Encounter [facility] [place], [place] [phone] Tacho Echavarria MD Invasive ductal carcinoma of breast, female, right (HCC) (Primary Dx) Discharge Disposition: Home or Self Care 01/01/2025 Patient Outreach [facility] [address] [place] [address] Samm Ledesma APRN Botox Injection (~03/02/2025 ) 12/31/2024 Specialty Pharmacy [facility] [address] [place] [address] Annamarie Mark table cut off saw operator Pharmacy Migraine Medication Management (Qulipta) 12/30/[address] [facility] [place] [address] Sonny Fleming MSW 12/29/2024 Social Work [facility] Cancer [facility] [address] [place] [phone] Annette Walker MSW 12/29/2024 Orders Only [facility] [address] [place] [address] Blake Antoine, [facility] Restless leg syndrome; Essential hypertension, benign 12/29/[address] [place] [address] Munir Hilton MD Medication Refill 12/29/2024 [facility]ill [facility] [place] [facility] [address] [place] [address] Chetna Cedeno MD Medication Refill 12/29/2024 Telephone [facility] [place] [phone] Tacho Echavarria MD 12/28/2024 Orders Only [facility] [place] [phone] Tacho Echavarria MD 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) (Primary Dx) 12/25/2024 Specialty Pharmacy [facility] [address] [place] [address] Hilary Rivas, [facility] Pharmacy Oncology Management; Pharmacy Reassessment (abemaciclib (Verzenio)) 12/25/2024 Telephone [facility] Women's Wellness [facility] [address] [place] [phone] Jasmin Porter RN 12/23/2024 Specialty Pharmacy [facility] [address] [place] [address] Anisa Lozoya, [facility] Migraine Medication Management (Qulipta pa renewal) 12/23/2024 Telephone [place] [address] Tacho Echavarria MD 12/23/2024 Telephone [facility] [address] [place] [address] Tacho Echavarria MD Follow-up 12/14/2024 11:09 AM EDT - 12/14/2024 11:59 PM EDT Hospital Encounter [facility] Physical Therapy [address] [place] [address] Kylah Lawler PT Discharge Disposition: Home or Self Care 12/11/2024 Telephone [facility] Physical Therapy [place] [phone] [facility] [address] [place] [address] Romana Bowman PTA Cancelled Appointment (Car in shop will not get done till 5 ) 12/10/2024 2:46 PM EDT - 12/10/2024 11:59 PM EDT Hospital Encounter [facility] [place] [phone] Tacho Echavarria MD 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) (Primary Dx); Chemotherapy-induced nausea; Anxiety about treatment; Acquired lymphedema; Encounter for monitoring aromatase inhibitor therapy Discharge Disposition: Home or Self Care 12/10/2024 2:30 PM EDT - 12/10/2024 2:45 PM EDT Hospital Encounter [facility] [place] [phone] Tacho Echavarria MD Invasive ductal carcinoma of breast, female, right (HCC) (Primary Dx); 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) Discharge Disposition: Home or Self Care 12/10/2024 Specialty Pharmacy [facility] [address] [place] [address] Batool Smith, [facility] Pharmacy Oncology Management (Verzenio 100mg) 12/10/2024 Social Work [facility] Cancer Care [facility] [place] [address] Annette Walker, ARACELI 12/09/2024 Specialty Pharmacy [facility] [address] [place] [address] Annamarie Mark, [facility] Migraine Medication Management (Qulipta) 12/08/2024 2:35 PM EDT Procedure visit [facility] [address] [place] [address] Krusling, Samm E, SALES SERVICE SUPERVISOR Chronic migraine without aura, intractable, with status migrainosus (Primary Dx) Discharge Disposition: Home or Self Care 12/08/2024 7:59 AM EDT - 12/08/2024 11:59 PM EDT Hospital Encounter [facility] Physical Therapy [place] [address] [facility] [address] [facility] [address] [place] [address] Shaunna Workman, PT Discharge Disposition: Home or Self Care 12/08/2024 Specialty Pharmacy [facility] [address] [place] [address] [facility] Migraine Medication Management (Ubrelvy) 12/07/2024 Results Follow-Up [facility] [address] [place] [address] King Oliva MD PATHOLOGY TISSUE REQUEST 12/04/[address] [facility] [place] [address] Annette Walker, [facility] 12/04/2024 Travel 12/03/2024 9:00 AM EDT - 12/03/2024 11:59 PM EDT Hospital Encounter [facility] Physical Therapy [address] [place] [address] Shaunna Workman, PT Discharge Disposition: Home or Self Care 12/03/2024 8:00 AM EDT - 12/03/2024 8:59 AM EDT Hospital Encounter [facility] Physical Therapy [place] [phone] [facility] [address] [place] [address] Romana Bowman PTA Discharge Disposition: Home or Self Care 12/03/[address] [facility] [place] [address] Sonny Fleming, [facility] 12/02/2024 9:36 AM EDT - 12/02/2024 11:59 PM EDT Hospital Encounter [facility] Physical Therapy [address] [place] [address] Shaunna Workman, PT Discharge Disposition: Home or Self Care 12/02/2024 Orders Only [facility] [place] [phone] Tacho Echavarria MD 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) (Primary Dx) 12/01/2024 10:51 AM EDT Anesthesia Event [facility] [address] [place] [address] Aliya Friedman MD Record, Batool Velazquez, SALES SERVICE SUPERVISOR 12/01/2024 9:22 AM EDT - 12/01/2024 11:59 PM EDT Hospital Encounter [facility] [address] [place] [address] King Oliva MD Judge, Lisa M, MD O Shaylee Galarza, LOUIE Nausea and vomiting, unspecified vomiting type; Gastroesophageal reflux disease without esophagitis Discharge Disposition: Home or Self Care 12/01/2024 Refill Cancer [facility] [place] [phone] Tacho Echavarria MD Medication Refill 12/01/2024 Specialty Pharmacy [facility] [address] [phone] Annette Renee, [facility] Oncology Management (Abemaciclib) 11/30/2024 Nurse Triage [facility] [address] [place] [address] Sandy Gonzalez RN 11/26/2024 8:00 AM EDT - 11/26/2024 11:59 PM EDT Hospital Encounter [facility] Physical Therapy [address] [place] [address] Shaunna Workman PT Discharge Disposition: Home or Self Care 11/25/2024 Social Work [facility] Cancer Care [facility] [place] [address] Sonny Fleming MSW 11/23/2024 12:12 PM EDT - 11/23/2024 11:59 PM EDT Hospital Encounter [facility] Physical Therapy [address] [place] [address] Shaunna Workman, PT Discharge Disposition: Home or Self Care 11/23/2024 12:00 PM EDT - 11/23/2024 12:11 PM EDT Hospital Encounter [facility] Physical Therapy [address] [place] [address] Kylah Lawler, PT Discharge Disposition: Home or Self Care 11/23/2024 Telephone [facility] [address] [facility] [address] [place] [address] Krissy Rhodes, SALES SERVICE SUPERVISOR Other 11/23/2024 Telephone [facility] [address] [place] [address] Samm Ledesma, SALES SERVICE SUPERVISOR Headache 11/22/2024 10:32 AM EDT - 11/22/2024 1:30 PM EDT Emergency [facility] [place] [phone] Stone Castellano MD Acute nonintractable headache, unspecified headache type (Primary Dx) Discharge Disposition: Home or Self Care 11/22/2024 Nurse Triage [facility] [address] [place] [phone] Macarena [place], RAUL 11/21/2024 1:21 PM EDT - 11/21/2024 5:35 PM EDT Emergency [facility] [place] [address] Saúl Melendez MD Migraine with status migrainosus, not intractable, unspecified migraine type (Primary Dx) Discharge Disposition: Home or Self Care 11/21/2024 Travel 11/21/2024 Nurse Triage [facility] [address] [place] [phone] Annette Moreira, RAUL 11/21/2024 Telephone [place] [address] Tacho Echavarria MD Symptom Call 11/19/2024 2:21 PM EDT - 11/19/2024 11:59 PM EDT Hospital Encounter [facility] Physical Therapy [address] [place] [address] Kylah Lawler, PT Discharge Disposition: Home or Self Care 11/18/2024 7:58 AM EDT - 11/18/2024 11:59 PM EDT Hospital Encounter [facility] Physical Therapy [address] [place] [address] Shaunna Workman, PT Discharge Disposition: Home or Self Care 11/17/2024 8:55 AM EDT - 11/17/2024 11:59 PM EDT Hospital Encounter [facility] Physical Therapy [address] [place] [address] Kylah Lawler, PT Discharge Disposition: Home or Self Care 11/16/2024 Specialty Pharmacy [facility] [address] [place] [address] [place]ano, [facility] Migraine Medication Management (Qulipta) 11/13/2024 Social Work [facility] [place] [phone] Annette Walker MSW 11/13/2024 Patient Outreach [place] [address] Shilpa Cline, statistics tutor Nurse Navigation 11/11/2024 11:20 AM EDT - 11/11/2024 11:59 PM EDT Hospital Encounter [facility] [place] [phone] Tacho Echavarria MD 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) (Primary Dx); Chemotherapy-induced nausea; Encounter for monitoring aromatase inhibitor therapy; Anxiety about treatment Discharge Disposition: Home or Self Care 11/11/2024 11:00 AM EDT - 11/11/2024 11:19 AM EDT Hospital Encounter [place] [address] Tacho Echavarria MD Invasive ductal carcinoma of breast, female, right (HCC) (Primary Dx); 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) Discharge Disposition: Home or Self Care 11/11/2024 7:48 AM EDT - 11/11/2024 10:59 AM EDT Hospital Encounter [facility] Physical Therapy [address] [place] [address] Romana Bowman, ELECTROMEDICAL EQUIPMENT TECHNICIAN Discharge Disposition: Home or Self Care 11/11/2024 7:34 AM EDT - 11/11/2024 7:47 AM EDT Hospital Encounter [facility] Physical Therapy [address] [place] [address] Romana Bowman, ELECTROMEDICAL EQUIPMENT TECHNICIAN Discharge Disposition: Home or Self Care 11/11/2024 Social Work [facility] Cancer Care [facility] [place] [address] Annette Walker, ARACELI 11/10/2024 Telephone Cancer [facility] [place] [address] Tacho Echavarria MD Schedule Appointment (Schedule appt) 11/10/2024 Telephone [place] [address] Tacho Echavarria MD Results (PET CT results) 11/09/2024 2:50 PM EDT Office Visit [facility] [place] [address] [place] [address] Chetna Cedeno MD Acute bacterial sinusitis (Primary Dx); 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); Right breast cancer with T3 tumor, >5 cm in greatest dimension (HCC) 11/09/2024 9:30 AM EDT - 11/09/2024 11:59 PM EDT Hospital Encounter [facility] [place] [address] Tacho Echavarria MD 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); Chemotherapy follow-up examination; Malignant neoplasm of right female breast, unspecified estrogen receptor status, unspecified site of breast (HCC); Port-A-Cath in place Discharge Disposition: Home or Self Care 11/09/2024 Travel 11/09/2024 [facility]phone [facility] [place] [address] Tacho Echavarria MD Patient Question (Asking about Pet instructions) 11/06/2024 9:00 AM EDT - 11/06/2024 11:59 PM EDT Hospital Encounter [facility] Jose Cherry [address] [place] [address] Kylah Lawler, ALECIA Discharge Disposition: Home or Self Care 11/06/2024 Patient Outreach [facility] Neurology [facility] [address] [place] [address] Samm Ledesma, LEYLA 11/04/2024 10:30 AM EDT Office Visit [facility] [address] [place] [address] Sin Tran MD Chronic pain syndrome (Primary Dx); Post laminectomy syndrome 11/04/2024 Telephone [place] [address] Tacho Echavarria MD Patient Question 11/03/2024 Orders Only [facility] [place] [address] Tacho Echavarria MD 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) (Primary Dx) from Last 3 Months Immunizations Immunization Administration Dates Next Due Influenza High Dose 06/25/2024, 4(Deferred: Other - [facility] Influenza Vaccine Quadrivalent PF 03/27/2023,01/2015 Influenza Vaccine, Unspecifi ed Formulation 04/23/2018,05/08/2014,03/10/2011 Influenza Virus Vaccine Quad rivalant, Flublok 03/26/2022,06/28/2021,03/25/2019 Pfizer SARS-CoV-2 Vaccine 12 + Yrs (Purple Cap) 10/19/2020,09/28/2020 Pneumococcal Conjugate Vacci ne 20 Valent 03/26/2022 Pneumococcal Polysaccharide 23 Valent 04/23/2018 Tdap 08/25/2014 Zoster Recombinant 09/14/2019 Surgical History Surgery Date Site/Laterality Comments APPENDECTOMY CHOLECYSTECTOMY TONSILLECTOMY LUMBAR DISC SURGERY 09/11/2012 Left LUMBAR LAMINECTOMY & DISCECTOMY L4-5 LEFT ; Surgeon: Hetal Borden MD; UPPER GASTROINTESTINAL ENDOSCOPY UPPER GASTROINTESTINAL ENDOSCOPY 01/26/2015 N/A ESOPHAGOGASTRODUODENOSCOPY with biopsy and davis dilation; Surgeon: Stone Cronin MD; Location: [facility]; Service: Endoscopy GASTRIC BYPASS SURGERY 05/01/2017 Abdomen/N/A LAPAROSCOPIC SLEEVE GASTRECTOMY ; Surgeon: Marcus Perez MD; Location: [facility] MAIN OR; Service: General IR 2 LEVEL BILATERAL MEDIAL BRANCH BLOCK LUM SAC 09/01/2018 IR 2 LEVEL BILATERAL MEDIAL BRANCH BLOCK LUM SAC 09/01/2018 [facility] IR 2 LEVEL BILATERAL MEDIAL BRANCH BLOCK LUM SAC 01/26/2019 IR 2 LEVEL BILATERAL MEDIAL BRANCH BLOCK LUM SAC 01/26/2019 [facility] THORACIC SPINE SURGERY 02/24/2020 N/A SPINAL CORD STIMULATOR IMPLANT; Surgeon: Munir Hilton MD; Location: [facility] MA[facility] OR; Service: Pain Management Medical devices from this surgery are in the Medical Devices section. SPINE SURGERY 01/04/2021 N/A PAIN PUMP PERMANENT IMPLANT;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 Negative Negative, Invalid SEP OFFICE INFLUENZA B Negative Negative, Invalid SEP OFFICE RSV Negative Negative, Invalid SEP OFFICE Lot Number SEP OFFICE Expiration Date SEP OFFICE SeriAl # SEP OFFICE Control Line Yes YES/NO SEP OFFICE 11/09/2024 4:08 PM EDT Chetna Cedeno MD POINT OF CARE TEST ORDERABLES Final Result SEP OFFICE * PET CT SKULL BASE TO MID THIGH (11/09/2024 11:14 AM EDT) Anatomical Region Laterality Modality Positron Emissio n Tomography (PET) 11/09/2024 11:1 4 AM EDT Impressions 11/09/2024 12:23 PM EDT Interval right mastectomy and lymph node dissection. There are is a focus of hypermetabolic activity in the left upper most anterior left mediastinum versus subclavicular region which are indeterminate and warrant follow-up. Additional left subclavicular focus remains indeterminate and warrants follow-up. No other evidence of metastatic disease. - Note: Radiology results need to be interpreted within a comprehensive clinical context. If you have questions about the radiology report, please contact the office of the ordering clinician. Narrative 11/09/2024 12:[address] SKULL BASE TO MID THIGH, 11/09/2024 11:14 AM CLINICAL HISTORY: C50.911-Malignant neoplasm of unspecified site of right female breast (HCC)-ICD-10-CM L13-Bsvzgtost for follow-up examination after completed treatment for conditions other than malignant [id number]-FGH-01-CM C50.911-Malignant neoplasm of unspecified site of right female breast (HCC)-ICD-10-CM Z95.828-Presence of other vascular implants and wyanbo-JFG-40-CM. COMPARISON: 06/23/2024 and 11/13/2023. PROCEDURE COMMENTS: 12.3 mCi 18F-fluorodeoxyglucose (FDG) was administered I.V. Serum blood glucose at the time of the injection was 97 mg/dL. Uptake time was approximately 45 minutes. Scanning performed from the skull vertex to the mid thigh. As an integrated part of the study, noncontrast CT scanning performed for attenuation correction and localization purposes.Dose 1 : CT DLP Total : 427.88 mGycm DLP Spiral Max : 420.07 mGycm Maximum CTDI Vol : 4.74 mGy FINDINGS: Normal distribution of physiologic background activity [...] Notable CT findings: No developing mass lesion. Procedure Note Kennedy Alvarado MD - 11/09/[address] SKULL BASE TO MID THIGH, 11/09/2024 11:14 AM CLINICAL HISTORY: C50.911-Malignant neoplasm of unspecified site ofright female breast (HCC)-ICD-10-CM A63-Qjrvphttw for follow-up examination after completed treatment forconditions other than malignant kdlvpsqb-PTS-45-CM C50.911-Malignant neoplasm of unspecified site of right female breast (HCC)-ICD-10-CM Z95.828-Presence of other vascular implants and ljgwph-DJK-16-CM. COMPARISON: 06/23/2024 and 11/13/2023. PROCEDURE COMMENTS: 12.3 mCi 18F-fluorodeoxyglucose (FDG) was administeredI.V. Serum blood glucose at the time of the injection was 97 mg/dL. Uptake timewas approximately 45 minutes. Scanning performed from the skull vertex to themid thigh. As an integrated part of the study, noncontrast CT scanningperformed for attenuation correction and localization purposes.Dose 1 : CT DLP Total : 427.88 mGycm DLP Spiral Max : 420.07 mGycm Maximum CTDI Vol : 4.74 mGy FINDINGS: Normal distribution of physiologic background activity waspresent including gastrointestinal, genitourinary, cardiovascular, neurologicsystems. Index activity in the right lobe of the liver was 3.7 SUV max. Head and Neck: No hypermetabolic foci. Chest: Interval right mastectomy and lymph node dissection. There is afocus of hypermetabolic activity at the uppermost anterior left mediastinum orleft subclavicular chain measuring up to 3.5 SUV max which is suspicious andwarrants follow-up. There is a second more lateral subtle left subclavicularfocus measuring 2.7 SUV max which is also indeterminate and warrantsfollow-up. Abdomen and pelvis: No hypermetabolic foci. Musculoskeletal: No hypermetabolic foci. Notable CT findings: No developing mass lesion. IMPRESSION: Interval right mastectomy and lymph node dissection. There are is a focusof hypermetabolic activity in the left upper most anterior left mediastinumversus subclavicular region which are indeterminate and warrant follow-up.Additional left subclavicular focus remains indeterminate and warrants follow-up. Noother evidence of metastatic disease. - Note: Radiology results need to be interpreted within a comprehensiveclinical context. If you have questions about the radiology report, please contactthe office of the ordering clinician. us Tacho Echavarria MD IMG PET ORDERABLES Final Re sult * GLUCOSE METER POC (11/09/2024 9:44 AM EDT) Glucose Meter POC 97 70 - 100 mg/dL 11/09/2024 9:46 AM EDT [facility] Sample Type Capillary 11/09/2024 9:46 AM EDT [facility] Patient Status Non-Critical Patient 11/09/2024 9:46 AM EDT [facility] Blood BLOOD SPECIMEN / Unknown 11/09/2024 9:44 AM EDT 11/09/2024 9:46 AM EDT us Tacho Echavarria MD POINT OF CARE TEST ORDERABL ES Final Result [facility] [address] [place] [address] * MM MAMMO DIGITAL STEPHANE DIAGN RIGHT (01/27/2024 11:20 AM EDT) Anatomical Region Laterality Modality Breast Right Mammography 01/27/2024 12:5 7 PM EDT Impressions 01/27/2024 12:57 PM EDT Incomplete-need additional imaging evaluation (MCL-Lozmfazg-9) ~ RECOMMENDATION: Ultrasound of the right breast. Right breast ultrasound will be performed 01/27/2024 and reported separately. ~ DISCLAIMER * Any patient with a palpable abnormality, unexplained by breast imaging, should be managed on clinical basis by the attending physician. * Breast imaging has a false negative rate of 15%. * The patient was notified by mail of the results of this examination. *The patient's information was entered into a reminder system with a target due date for the next mammogram, in accordance with the [place] [employer] [employer] and the Society of Breast Imaging recommendations. Narrative 01/27/2024 12:57 PM EDT Procedure:MM MAMMO DIGITAL STEPHANE DIAGN RIGHT ~ Reason for exam: known biopsy proven malignancy. 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 Patient also has grade 3 invasive ductal carcinoma involving the right breast 5:00 position. Findings compatible with multicentric right breast disease on prior breast MRI including abnormal right axillary lymph nodes. Patient is status post prior genetic testing as well as systemic chemotherapy. Patient presents for repeat imaging to assess for treatment response. 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 Patient also has grade 3 invasive ductal carcinoma involving the right breast 5:00 position. Findings compatible with multicentric right breast disease on prior breast MRI including abnormal right axillary lymph nodes. Patient is status post prior genetic testing as well as systemic chemotherapy. Patient presents for repeat imaging to assess for treatment response. ~ MM MAMMO DIGITAL STEPHANE DIAGN RIGHT CC and MLO view(s) were taken of the right breast. The breast tissue is heterogeneously dense. This may lower the sensitivity of mammography. Prior study comparison: Compared with prior studies the most recent being 10/14/23, 05/30/21 Previously-biopsied irregular mass at the posterior 5:00-6:00 position contains a central tissue marker and is smaller in size since 10/14/2023. ~ Previously-sampled pleomorphic microcalcifications with tissue marker at the mid 6:00 position are similar in appearance when accounting for differences in technique. ~ Abnormal right axillary lymph nodes, some of which contain pleomorphic calcifications are redemonstrated. ~ All of these findings will be further assessed with targeted right breast sonography. ~ No convincing new mass or convincing new microcalcifications since prior. ~ Procedure Note Matt Velásquez MD - 01/27/2024 Procedure:MM MAMMO DIGITAL STEPHANE DIAGN RIGHT ~ Reason for exam: known biopsy proven malignancy. 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 Patient alsohas grade 3 invasive ductal carcinoma involving the right breast 5:00position. Findings compatible with multicentric right breast disease on priorbreast MRI including abnormal right axillary lymph nodes. Patient is statuspost prior genetic testing as well as systemic chemotherapy. Patient presents for repeat imaging to assess for treatment response. 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 Patient alsohas grade 3 invasive ductal carcinoma involving the right breast 5:00position. Findings compatible with multicentric right breast disease on priorbreast MRI including abnormal right axillary lymph nodes. Patient is statuspost prior genetic testing as well as systemic chemotherapy. Patient presents for repeat imaging to assess for treatment response. ~ MM MAMMO DIGITAL STEPHANE DIAGN RIGHT CC and MLO view(s) were taken of the right breast. The breast tissue is heterogeneously dense. This may lower thesensitivity of mammography. Prior study comparison: Compared with prior studies the most recentbeing 10/14/23, 05/30/21 Previously-biopsied irregular mass at the posterior 5:00-6:00 position contains a central tissue marker and is smaller in size since 10/14/2023. ~ Previously-sampled pleomorphic microcalcifications with tissue marker at the mid 6:00 position are similar in appearance when accounting for differences in technique. ~ Abnormal right axillary lymph nodes, some of which contain pleomorphic calcifications are redemonstrated. ~ All of these findings will be further assessed with targeted rightbreast sonography. ~ No convincing new mass or convincing new microcalcifications sinceprior. ~ IMPRESSION: Incomplete-need additional imaging evaluation ([id number]-[id number]-3) ~ RECOMMENDATION: Ultrasound of the right breast. Right breast ultrasound will be performed 01/27/2024 and reported separately. ~ DISCLAIMER * Any patient with a palpable abnormality, unexplained by breast imaging, should be managed on clinical basis by the attending physician. * Breast imaging has a false negative rate of 15%. * The patient was notified by mail of the results of this examination. *The patient's information was entered into a reminder system with atarget due date for the next mammogram, in accordance with the [place] [employer] and the Society of Breast Imaging recommendations. Jeanette Smith APRN IMG MAMMOGRAPHY ORDERABLES Final Result * GMED COLONOSCOPY (07/12/2015 2:30 PM EST) 07/12/2015 2:30 PM EST Impressions [facility] - 07/12/2015 3:30 PM EST Normal mucosa in the whole colon and terminal ileum. There is no evidence of Crohns disease or ulcerative colitis on this exam. . The patient demonstrates hypersensitivity to any movement of the colonoscope typical of Irritable Bowel Syndrome. Plan: Imipramine HCl 25 mg Take 1 tablet by mouth nightly IBgard 90 mg po ac Pelvic Ultrasound This section is an excerpt of the full report. us Stone Cronin MD GI PROCEDURE ORDERABLES Doris mcmahon Result [facility] [address] [place] [address] from Last 3 Months or Most Recently Relevant to Health Maintenance Insurance [facility] [id number] [facility] [employer] [facility] [address] Advance Directives For more information, please contact: [phone] * Full Code (Latest Code Status on File) Date Activated Date Inactivated Comments 05/01/2017 2:57 PM 05/03/2017 5:30 PM Care Teams Grounds Keeper Relationship Specialty [place] [address] [place] [address] PCP - General 06/21/10 Arlyn Schmidt MD [address] [place] [address] Consulting Physician Internal Medicine-Endocrinology, Diabetes & Metabolism 11/28/20 Tacho Echavarria MD [address] [place] [address] Internal Medicine-Medical Oncology 11/12/23 Matt Ulrich MD [address] [place] [address] Surgery-Surgical Oncology 12/04/23 Eze Brock Pastoral Care 12/13/23 Annette Walker, ARACELI Wildlife Biologist 05/13/24 Batool Celis MD [address] [facility] [address] Radiation Oncologist Radiology-Radiation Oncology 06/08/24
--- OUTSIDE RECORDS SUMMARY | 2025-01-31 16:02 | XMS_ITS | Encounter Summary ---
Author Organization [place] [address] Care Team Providers Care Roving Technician Name Role Phone Chetna Cedeno MD Primary Care Provider [phone] Arlyn Schmidt MD Unavailable [phone] Tacho Echavarria MD Unavailable [phone] Matt Ulrich MD Unavailable [phone] Eze Brock Unavailable Cheryl Nair RN Unavailable [phone] Annette Walker CUSTOMER MARKETING MANAGER Unavailable [phone] Batool Celis MD Unavailable [phone] Encounter Details Date Type Department Care Team (Late st Contact Info) Description 12/04/2024 Social Work [facility] Cancer Care [facility] [place] [address] Annette Walker, CUSTOMER MARKETING MANAGER Social History Tobacco Use Types Packs/Day Years [...] your doctor or pharmacy? Never 11/07/2023 [facility] Utilities Answer Date Recorded In [...] Date Recorded PHQ-2 Total Score 5 07/07/2024 [facility] of Occupat ional Health - Occupational Stress [...] a senior care (including now)? No 11/07/2023 [facility] IP Transportation Answer [...] Progress Notes * Annette Walker MSW - 12/04/2024 1:31 PM EDT 12/04/24 1331 Torpedo Man Assessment Referred By Patient Phone call Disease/[place] Site Regulatory Manager Assignment Breast cancer Referral Location: Med Onc Reason for Referral Financial - Housing Identified Needs Housing;Financial issues;Education/Information Social Work Interventions Brief Couseling/Support;Financial/Efren;Education/Information WET MACHINE CUTTER spoke with Patient who has secured housing in [place], [place]. Patient has requested W-9 form from property insurance claims examiner. Patient explained that if she can get assistance with security deposit/first month's rent that she could afford moving expenses. Patient sent WET MACHINE CUTTER paperwork from [employer] ([employer]) with amount due outlined. Patient also requested that WET MACHINE CUTTER communicate as needed with [facility] insurance claims examiner. WET MACHINE CUTTER spoke with Nasrin Madison ([phone]) who manages the property. She has received W-9 form and has sent to the corporate office. She will forward onwhen she receives. WET MACHINE CUTTER will then submit [employer] application (amount requested will be $1175 to cover security deposit and two month's rent). If approved, [employer] will send check directly to following: [employer] [address] [place], [place] [address]. WET MACHINE CUTTER following. Addendum: W-9 received from [employer] - WET MACHINE CUTTER sent completed application to [employer] with supporting documentation. documented in this encounter Plan of Treatment Upcoming Encounters Date Type Department Care Team (Late st Contact Info) Description 02/02/2025 11:20 AM EDT Telemedicine [facility] [address] [place] [address] Samm Ledesma, BEACH ATTENDANT [address] [place] [address] 02/04/2025 11:00 AM EDT Appointment [facility] Women's Wellness [facility] [place] [address] Tacho Echavarria MD 1 [place] [address] Naya García PA-C [address] [place] [address] [address] [place] [address] 02/04/2025 2:00 PM EDT Appointment [place] [address] Tacho Echavarria MD [address] [place] [address] 02/04/2025 2:20 PM EDT Appointment [facility] [place] [address] Tacho Echavarria MD [address] [place] [address] 02/10/2025 10:30 AM EDT Office Visit [facility] [place] [address] [facility] [address] [place] [address] Sin Tran MD [address]00 [place] [address] 03/02/2025 11:40 AM EDT Office Visit [facility] [place] [address] [place] [address] [place] [address] [place] [address] 03/02/2025 12:45 PM EDT Procedure visit [facility] [address] [place], [place] [address] Baltazar Smam Santana, BEACH ATTENDANT [address] [place], [place] [address] 04/29/2025 9:15 AM EDT Appointment [facility] RAD ONC [place], [place] [id number] Batool Celis MD [address] [place] [address] CANCER [place], [place] [id number] documented as of this encounter Goals Goal Patient Goal Type Associated Problems Recent Progress Patient-Stated? Author Blood Pressure < 140/90 Blood Pressure 129/95(01/15 2:00 PM EDT) No Chetna Cedeno MD Breast [facility] Breast Health On track(2024 12:01 PM EST) No Jasmin Porter RN Note: Patient acknowledges understanding of new diagnosis, plan of care, available resources and how to contact Nurse Navigator with any future questions or concerns. Breast [facility] Breast Health No Jasmin Porter, RAUL Note: [...] documented as of this encounter Care Teams Roving Technician Relationship Specialty [place] [address] [place] [address] PCP - General 06/21/10 Arlyn Schmidt MD [address] [place], [place] [address] Consulting Physician Internal Medicine-Endocrinology , Diabetes & Metabolism 11/28/20 Tacho Echavarria MD 1 [place], [place] [address] Internal Medicine-Medical Oncology 11/12/23 Matt Ulrich MD 1 [place] [address] Surgery-Surgical Oncology 12/04/23 Eze Brock Pastoral Care 12/13/23 Cheryl Nair, RN Oncology Nurse Navigator 03/25/2412/13 Annette Walker, CUSTOMER MARKETING MANAGER Regulatory Manager 05/13/24 Batool Celis MD 1 [facility] [place] [address] Radiation Oncologist Radiology-Radiation Oncology 06/08/24 documented as of this encounter
--- OUTSIDE RECORDS SUMMARY | 2025-01-31 16:02 | XMS_ITS | Encounter Summary ---
Author [place] [address] Care Team Providers Care Museum Preparator Name Role Phone Chetna Cedeno MD Primary Care Provider [phone] Arlyn Schmidt MD Unavailable [phone] Tacho Echavarria MD Unavailable [phone] Matt Ulrich MD Unavailable Eze Brock Unavailable Cheryl Nair RN Unavailable [phone] Annette Walker MANUFACTURING TEST ENGINEER Unavailable [phone] Batool Celis MD Unavailable [phone] Encounter Details Date Type Department Care Team (Late st Contact Info) Description 12/07/2024 Results Follow-Up [facility] [address] [facility] [place] [address] King Oliva MD [address] [place] [address] PATHOLOGY TISSUE REQUEST Social History Tobacco Use Types Packs/Day Years [...] your doctor or pharmacy? Never 11/07/2023 [facility] Utilities Answer Date Recorded In the [...] in a halfway (including now)? No 11/07/2023 [facility] IP Transportation Answer D ate Recorded In [...] AM EDT Telemedicine [facility] [address] [place] [address] Samm Ledesma APRN [address] [place], [place] [id number] 02/04/2025 11:00 AM EDT Appointment [facility] Women's Wellness [facility] [place] [address] Tacho Echavarria MD [address] [place] [address] Naya García PA-C [address] [place] [address] [address] [place] [address] 02/04/2025 2:00 PM EDT Appointment [facility] [place], [place] [address] Tacho Echavarria MD [address] [place] [address] 02/04/2025 2:20 PM EDT Appointment [place] [address] Tacho Echavarria MD [address] [place] [address] 02/10/2025 10:30 AM EDT [facility] [address] [facility] [address] [place] [address] Sin Tran MD [address] [facility] [place] [address] 03/02/2025 11:40 AM EDT [place] [address] [place] [address] [place] [address] [place] [address] 03/02/2025 12:45 PM EDT Procedure visit [facility] [address] [place], [place] [address] Samm Ledesma, ENVIRONMENTAL PROFESSIONAL [address] [place] [address] 04/29/2025 9:15 AM EDT Appointment [place] [address] Batool Celis MD [address] [place] [address] CANCER CARE [place], [place] [phone] documented as of this encounter Goals Goal [...] documented as of this encounter Care Teams Museum Preparator Relationship Specialty [place] [address] [place] [address] PCP - General 06/21/10 Arlyn Schmidt MD [address] [place], [place] [address] Consulting Physician Internal Medicine-Endocrinology , Diabetes & Metabolism 11/28/20 Tacho Echavarria MD 1 [place] [phone] Internal Medicine-Medical Oncology 11/12/23 Matt Ulrich MD 1 [place] [address] Surgery-Surgical Oncology 12/04/23 Eze Brock Pastoral Care 12/13/23 Cheryl Nair, RN Oncology Nurse Navigator 03/25/2412/13 Annette Walker MSW Switch Adjuster 05/13/24 Batool Celis MD 1 [facility] [place] [address] Radiation Oncologist Radiology-Radiation Oncology 06/08/24 documented as of this encounter
--- OUTSIDE RECORDS SUMMARY | 2025-01-31 16:02 | XMS_ITS | Encounter Summary ---
Author Organization [place] [address] Care Team Providers Care Dry Transfer Man Name Role Phone Chetna Cedeno MD Primary Care Provider [phone] Arlyn Schmidt MD Unavailable [phone] Tacho Echavarria MD Unavailable [phone] Matt Ulrich MD Unavailable [phone] Eze Brock Unavailable Annette Walker Unavailable [phone] Batool Celis MD Unavailable [phone] Reason for Referral * Genetic Lab Test (Routine) - Authorization Not Needed Specialty Diagnoses / Procedures Referred By Contac t Referred To Contact Lab Diagnoses 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) Procedures PHARMACOGENOMIC PANEL Aury Delgado MD 1 [place] [address] Phone: tel: fax: Referral ID Status Reason Start Date Expiration Date Visits Requested Visits Authorized [id number] Authorization Not Needed 01/21/2025 01/21/2026 1 1 Encounter Details Date Type Department Care Team (Late st Contact Info) Description 01/21/2025 Orders Only [facility] 1 [place] [address] Osvaldo Johnson, Clerical Staff Invasive ductal carcinoma [...] Date Recorded PHQ-2 Total Score 5 07/07/2024 [facility] [place] of Occupat ional Health - Occupational Stress [...] any time in the past 12 m [facility], were you homeless or living in a mcfp (including now)? No 11/07/2023 [facility] IP Transportation Answer D ate [...] [facility] [address] [facility] [address] [place] [address] Samm Ledesma APRN [address] [place] [address] 02/04/2025 11:00 AM EDT Appointment [facility] Women's Wellness [facility] [address] [place] [phone] Tacho Echavarria MD [address] [place], [place] [address] Naya García PA-C [address] [place] [address] 02/04/2025 2:00 PM EDT Appointment [place] [address] Tacho Echavarria MD [address] [place], [place] [address] 02/04/2025 2:20 PM EDT Appointment [facility] Medical Oncology [place], [place] 0[address]17 Tacho Echavarria MD 1 [place], [place] 12[address] 02/10/2025 10:30 AM EDT Office Visit [facility] [address] [facility] [address] [place] [address] Sin Tran MD 4900 [place] [address] 03/02/2025 11:40 AM EDT Office Visit [facility] [place] [address] [place] [address] [place] [address] [place] [address] 03/02/2025 12:45 PM EDT Procedure visit [facility] [address] [address] [place], [place] [id number] Samm Ledesma, COMPUTER SYSTEMS INTEGRATOR [address] [address] [place], [place] [address] 04/29/2025 9:15 AM EDT Appointment [facility] RAD ONC [place], [place] [address] Batool Celis MD [address] [place] [address] documented as of this encounter Goals [...] Procedure Name Priority Date/Time Associated Diagnosis Comments PHARMACOGENOMIC PANEL Routine 01/06/2025 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) documented in this encounter Results * PHARMACOGENOMIC PANEL (01/06/2025) Pharmacogenomic Lab Comments See Comment ONEOME Comment:Hemizygous males and homozygous females are reported as HTR2C CC. Pharmacogenomic Lab Method See Comment CLARA Comment: This test was developed, and its performance characteristics determined by [facility], a clinical laboratory located at [address] [place] [address]. These tests have not been cleared or approved by the U.S. Food and Drug Administration. The FDA does not require this test to go through premarket FDA review. [facility] is certified under CLIA-88 and accredited by the [employer] as qualified to perform high-complexity testing. This test is approved for clinical use by the [facility] Department of Health. This test should not be regarded as investigational or for research. *Genomic DNA was analyzed by PCR using Thermo shopp TaqMan and/or MyxerQ probe-based methods to interrogate the variant locations [...] are associated with more than one haplotype, [facility] inf[facility] and reports the most likely diplotype [...] Call. *The variant detection methods validated by [facility] provide >99.9% accuracy for the adult population; [...] or pharmacogenomic specialist. For additional support, contact [facility] through the website or by calling [phone]. Blood 01/06/2025 01/22/2025 Narrative MARTINOME - 01/27/2025 This result has genomic variants that were not included in this document. us Aury ELIZABETH - ORDERABLES Final Result CLARA [address] [facility] 100 [place], [place] [address] [phone] documented in this encounter Visit Diagnoses Diagnosis 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)- Primary documented in this encounter Additional Health Concerns Assessment Noted Time PHQ-9 Depression Total Score: 17 024 8:39 AM EST PHQ-2 Depression Total Score: 5 07/07/20 24 8:39 AM EST documented as of this encounter Care Teams Dry Transfer Man Relationship Specialty [place] [address] [place] [address] PCP - General 06/21/10 Arlyn Schmidt MD [address] [place] [address] Consulting Physician Internal Medicine-Endocrinology, Diabetes & Metabolism 11/28/20 Tacho Echavarria MD 1 [place] [address] Internal Medicine-Medical Oncology 11/12/23 Matt Ulrich MD 1 [place], [place] [address] Surgery-Surgical Oncology 12/04/23 Eze Brock Pastoral Care 12/13/23 Annette Walker, ARACELI Construction Estimator 05/13/24 Batool Celis MD 1 [facility] [place] [address] Radiation Oncologist Radiology-Radiation Oncology 06/08/24 documented as of this encounter
--- OUTSIDE RECORDS SUMMARY | 2025-01-31 16:02 | XMS_ITS | Encounter Summary ---
Author [place] [address] Care Team Providers Care Bar Tacker Sewing Machine Name Role Phone Chetna Cedeno MD Primary Care Provider [phone] Arlyn Schmidt MD Unavailable [phone] Tacho Echavarria MD Unavailable [phone] Matt Ulrich MD Unavailable [phone] Eze Brock Unavailable Annette Walker Unavailable [phone] Batool Celis MD Unavailable [phone] Encounter Details Date Type Department Care Team (Late st Contact Info) Description 01/18/2025 Telephone [facility] Care Medical Oncology [place], [place] [phone] Tacho Echavarria MD [address] [place] [id number] Social History Tobacco Use Types Packs/Day Years [...] from your doctor or pharmacy? Never 11/07/2023 [facility] Utilities Answer Date Recorded In [...] Date Recorded PHQ-2 Total Score 5 07/07/2024 [facility] [place] of Occupat ional Health - Occupational Stress [...] time in the past 12 m [facility], were you homeless or living in a detention (including now)? No 11/07/2023 [facility] IP Transportation Answer D ate [...] Miscellaneous Notes * Telephone Encounter - Rosana Gupta, RN - 01/18/2025 12:00 PM EDT Patient requests LOMN for air conditioning unit at her apartment. Letter created and sent through [employer] documented in this encounter Plan of Treatment Upcoming Encounters Date Type Department Care Team (Late st Contact Info) Description 02/02/2025 11:20 AM EDT Telemedicine [facility] [address] [facility] [address] [place] [address] Samm Ledesma APRN [address] [place] [address] 02/04/2025 11:00 AM EDT Appointment [facility] Women's Wellness [facility] [place] [address] Tacho Echavarria MD [address] [place] [address] Naya García PA-C [address] [place] [address] 254 [place] [address] 02/04/2025 2:00 PM EDT Appointment [facility] [place], [place] [address]17 Tacho Echavarria MD [address] [place] [address] 02/04/2025 2:20 PM EDT Appointment [facility] [place] [address] Tacho Echavarria MD [address] [place] [address] [id number] 02/10/2025 10:30 AM EDT Office Visit [facility] [address] [facility] [address] [place] [address] Sin Tran MD 4900 [place] [address] 03/02/2025 11:40 AM EDT Office Visit [facility] [place] [address] [place] [address] [place] [address] [place] [address] 03/02/2025 12:45 PM EDT Procedure visit [facility] [address] [place] [address] Samm Ledesma, LEYLA [address] [place] [address] 04/29/2025 9:15 AM EDT Appointment [facility] RAD ONC [place], [place] [phone] Batool Celis MD [address] [place] [address] CANCER C[facility] [place], [place] [address] documented as of this encounter Goals Goal [...] documented as of this encounter Care Teams Bar Tacker Sewing Machine Relationship Specialty [place] [address] [place] [address] PCP - General 06/21/10 Arlyn Schmidt MD [address] [place], [place] [address] Consulting Physician Internal Medicine-Endocrinology, Diabetes & Metabolism 11/28/20 Tacho Echavarria MD [address] [place], [place] [address] Internal Medicine-Medical Oncology 11/12/23 Matt Ulrich MD 1 [place], [place] [address] Surgery-Surgical Oncology 12/04/23 Eze Brock Pastoral Care 12/13/23 Annette Walker MSW Mill Tender Washing 05/13/24 Batool Celis MD [address] [place] [address] [place] [address] Radiation Oncologist Radiology-Radiation Oncology 06/08/24 documented as of this encounter
--- OUTSIDE RECORDS SUMMARY | 2025-01-31 16:02 | XMS_ITS | Clinical Summary ---
Author Organization [facility] Address [address] [place] [address] Phone Care Team Providers Care Wafer Slicer Name Role Phone Chetna Cedeno MD Primary Care Provider [phone] Allergies Active Allergy Reactions Criticality Noted Date Comments Amoxicillin Hives High 01/02/2025 Cefazolin Hives,Nausea And Vomiting High 01/02/2025 Hydrocodone Hives High 01/02/2025 Hydromorphone Rash 01/02/2025 Lactase Diarrhea 01/02/2025 Methocarbamol Swelling 01/02/2025 Morphine And Related Shortness of Breath High 2024 Silver Itch,Rash 01/02/2025 Sumatriptan Swelling 01/02/2025 Tape Adhesive Rash 01/02/2025 Tree Nuts (Food) Shortness of Breath,Swelling High 01/02/2025 Varicella Zoster Immune Globulin Other (See Comments) 01/02/2025 Medications ZOLOFT 100 MG OR TABS 1 TABLET DAILY 30 0 Active ZOLOFT 50 MG OR TABS 1 TABLET DAILY 30 0 Active Encounters Date Type Department Care Team Description 01/02/2025 4:26 PM EDT - 01/02/2025 7:27 PM EDT Emergency [facility] Emergency Department [address] [place] [address] Dallin Espinoza MD Heat exhaustion, unspecified, initial encounter [T67.5XXA] Discharge Disposition: Home or Self Care from Last 3 Months Family History Medical History Relation Name Comments Diabetes Brother Diabetes Son Relation Name Status Comments Brother Son Social History Tobacco Use Types Packs/Day Years Used Date Smoking Tobacco: Never Alcohol Use Standard Drinks/Week Comments No 0 (1 standard drink = 0.6 oz pur e alcohol) Comments No Sex and Gender Information Value Date Recorded Sex Assigned at Not on file Legal Sex Female 8:43 AM EDT Gender Identity Not on file Sexual Orientation Not on file Last Filed Vital Signs Vital Sign Reading [...] Mass Index 32.59 01/02/2025 4:38 PM EDT Plan of Treatment Health Maintenance Due Date Last Done Comments Pap Screening 1988 Mammogram Screening 2007 Colonoscopy 2012 Shingrix (#2) 11/09/2019 09/14/2019 DTap,Tdap,and Td (2 - Td or Tdap) 08/25/2024 08/25/2014 Influenza Vaccine (#1) 2025 , 03/27/2023, 03/26/2022, Additional history exists RSV Vaccine (60+ or ) (1 - 1-dose 75+ series) 2042 Pneumococcal 0-49 Discontinued 03/26/2022, 04/23/2018 Pneumococcal 50+ Completed 03/26/2022, 04/23/2018 HPV Aged Out No longer eligi ble based on patient's age to complete this topic Meningococcal conjugate valent 4 (MCV4) Aged Out No longer eligible based on patient's age to complete this topic RSV Immunization (<20 months) Aged Out No longer eligible based on patient's age to complete this topic Procedures Procedure Name Priority Date/Time Associated Diagnosis Comments BAMP (NA,K,CL,CO2,GLU,BUN, CREAT,CA) STAT 01/02/2025 5:13 PM EDT CBC WITH DIFFERENTIAL STAT 01/02/2025 5:13 PM EDT ECG 12-LEAD STAT 01/02/2025 4:37 PM EDT from Last 3 Months Results * (ABNORMAL) BAMP (Na,K,Cl,CO2,Glu,BUN,Creat,Ca) (01/02/2025 5:13 PM EDT) [facility] BLD UREA NITROGEN 16 8 - 26 mg/dL [facility] [place] SODIUM 140 135 - 145 mmol/L [facility] [place] POTASSIUM 3.2(L) 3.6 - 5.1 mmol/L [facility] [place] CHLORIDE 107 98 - 111 mmol/L [facility] [place] CO2 20(L) 21 - 31 mmol/L [facility] [place] GLUCOSE, RANDOM 89 70 - 99 mg/dL [facility] [place] CREATININE 1.06 0.60 - 1.20 mg/dL [facility] [place] ANION GAP 13 4 - 16 mmol/L [facility] [place] CALCIUM 9.0 8.5 - 10.4 mg/dL [facility] [place] ESTIMATED GFR 61 >59 mL/min/1.7 3 m2 [facility] [place] Comment: Estimated GFR was calculated using the CKD-EPI cr (2020) equation refit without race. The equation is recommended by the National Kidney Foundation - [place] [employer] of Nephrology Task Force. Tested at [place] [id number] Whole Blood 01/02/2025 5:13 PM EDT 01/02/2025 5:25 PM EDT Dallin Espinoza MD LAB BLOOD ORDERABLES Final Result [facility] [address] [place] [address] [place] [address] * (ABNORMAL) CBC w/ Diff (01/02/2025 5:13 PM EDT) [facility] WBC 7.1 3.6 - 10.5 THOU/[facility] [place] RBC 3.75(L) 3.80 - 5.20 MIL/mcL [facility] [place] HEMOGLOBIN 11.2(L) 12.0 - 15.2 g/dL [facility] [place] HEMATOCRIT 33.6(L) 36 - 46 % [facility] [place] MCV 89.6 82 - 97 fL [facility] [place] MCH 30.0 27 - 33 pg [facility] [place] MCHC 33.5 32 - 36 g/dL [facility] [place] RDW 16.0 12.3 - 17.0 % [facility] [place] PLATELET 206 140 - 375 THOU/mcL [facility] [place] MPV 6.9(L) 7.0 - 11.5 fL [facility] [place] ABS. NEUTROPHIL 3.60 1.80 - 7.70 THOU/mcL [facility] [place] ABS LYMPHS 3.00 1.00 - 4.00 THOU/mcL [facility] [place] ABS MONOS 0.30 0.20 - 0.90 THOU/mcL [facility] [place] ABS EOS 0.10 0.03 - 0.45 THOU/mcL [facility] [place] ABS BASOS 0.10 0.00 - 0.20 THOU/mcL [facility] [place] SEGS 51 % [facility] [place] LYMPHOCYTES 43 % CHEMISTR Y NORTH MONOCYTES 4 % [facility] [place] EOSINOPHIL 1 % [facility] [place] BASOPHILS 1 % [facility] [place] Comment:Tested at [facility] [place] [facility] [address] [facility] [address] Whole Blood 01/02/2025 5:13 PM EDT 01/02/2025 5:25 PM EDT us Dallin Espinoza MD LAB BLOOD ORDERABLES Final Result [facility] [address] [place] [address] [facility] [address] [place] [address] * ECG 12 lead (01/02/2025 4:37 PM [...] QTcF 417 ms TH TRACEMASTER QRS Horizontal [place] -19 deg TH TRACEMASTER QRS AXIS 16 deg TH TRACEMASTER I-40 Horizontal [place] 46 deg TH TRACEMASTER I-40 FRONT AXIS -17 deg TH TRACEMASTER T-40 Horizontal [place] -50 deg TH TRACEMASTER T-40 Front [place] 51 deg TH TRACEMASTER T Horizontal [place] 52 deg TH TRACEMASTER T WAVE AXIS 16 deg TH TRACEMASTER S-T Horizontal [place] 60 deg TH TRACEMASTER S-T Front [place] 24 deg TH TRACEMASTER ECG IMPRESSION - BORDERLINE ECG - TH TRACEMASTER ECG IMPRESSION SR-Sinus rhythm-normal P axis, V-rate 50-99 TH TRACEMASTER ECG IMPRESSION LVHVP-Probable left ventricular hypertrophy-mul tiple LVH criteria TH TRACEMASTER ECGGUID [id number] TH TRACEMASTER 01/02/2025 4:37 PM EDT us Dallin Espinoza MD ECG ORDERABLES Final Resu lt TH TRACEMASTER from Last 3 Months Insurance [facility] MEDICAID Care Teams Wafer Slicer Relationship Specialty Start Date End Date Chetna Cedeno MD [facility] [address] [place] [address] PCP - General Family Medicine 01/02/25
--- OUTSIDE RECORDS SUMMARY | 2025-01-31 16:02 | XMS_ITS | Encounter Summary ---
Author Organization [facility] [place] [address] Care Team Providers Care Fish Grader Name Role Phone Chetna Cedeno MD Primary Care Provider [phone] Arlyn Schmidt MD Unavailable [phone] Tacho Echavarria MD Unavailable [phone] Matt Ulrich MD Unavailable [phone] Eze Brock Unavailable Cheryl Nair RN Unavailable [phone] Annette Walker PIGMENT MAKING SUPERVISOR Unavailable [phone] Batool Celis MD Unavailable [phone] Encounter Details Date Type Department Care Team (Latest Contact Info) Description 12/04/2024 Travel Social History Tobacco Use Types Packs/Day Years [...] your doctor or pharmacy? Never 11/07/2023 [facility] Utilities Answer Date Recorded In the [...] any clubs o r organizations such as confucianist groups, unions, fraternal or athletic groups, or [...] Date Recorded PHQ-2 Total Score 5 07/07/2024 [facility] Occupational Stress Questionnaire Answer [...] any time in the past 12 m [facility], were you homeless or living in a detention (including now)? No 11/07/2023 [facility] IP Transportation Answer D ate [...] AM EDT Telemedicine [facility] [address] [facility] [address] [place] [address] Samm Ledesma, OFFICE CLERK [address] [facility] [address] [place] [address] 02/04/2025 11:00 AM EDT Appointment [facility] Women's Wellness [facility] [place] [address] Tacho Echavarria MD [address] [place] [address] Naya García PA-C [address] [place] [address] [address] [place] [address] 02/04/2025 2:00 PM EDT Appointment [facility] [address] Tacho Echavarria MD [address] [place] [address] 02/04/2025 2:20 PM EDT Appointment [facility] [place], [place] [address] Tacho Echavarria MD [address] [place] [address] 02/10/2025 10:30 AM EDT Office Visit [facility] [address] [facility] [address] [place] [address] Sin Tran MD [address] [place] [address] 03/02/2025 11:40 AM EDT Office Visit [facility] [place] [facility] [address] [place] [address] [place] [address] [place] [address] 03/02/2025 12:45 PM EDT Procedure visit [facility] [address] [place] [address] Samm Ledesma, OFFICE CLERK [address] [place] [address] 04/29/2025 9:15 AM EDT Appointment [facility] [place] [address] Batool Celis MD [address] [place] [address] [place] [address] documented as [...] EST PHQ-2 Depression Total Score: 5 07/07/20 8:39 AM EST documented as of this encounter Care Teams Fish Grader Relationship Specialty [place] [address] [place] [id number] PCP - General 06/21/10 Arlyn Schmidt MD [address] [place], [place] [id number] Consulting Physician Internal Medicine-Endocrinology , Diabetes & Metabolism 11/28/20 Tacho Echavarria MD 1 [place], [place] [phone] Internal Medicine-Medical Oncology 11/12/23 Matt Ulrich MD [address] [place] [address] [phone] Surgery-Surgical Oncology 12/04/23 Eze Brock Pastoral Care 12/13/23 Cheryl Nair, RN Oncology Nurse Navigator 03/25/2412/13 Annette Walker MSW Puttier 05/13/24 Batool Celis MD 1 [facility] [address] Radiation Oncologist Radiology-Radiation Oncology 06/08/24 documented as of this encounter
--- OUTSIDE RECORDS SUMMARY | 2025-01-31 16:02 | XMS_ITS | Encounter Summary ---
Author Organization [place] [address] Care Team Providers Care Valuer Name Role Phone Chetna Cedeno MD Primary Care Provider [phone] Arlyn Schmidt MD Unavailable [phone] Tacho Echavarria MD Unavailable [phone] Matt Ulrich MD Unavailable [phone] Eze Brock Unavailable Annette Walker Unavailable [phone] Batool Celis MD Unavailable [phone] Reason for Visit * Reason Comments Medication Refill Encounter Details Date Type Department Care Team (Late st Contact Info) Description 01/15/2025 Refill [facility] [address] [facility] [address] [place] [address] Samm Ledesma, ASSEMBLER [employer] [address] [place] [address] Medication Refill Social History Tobacco Use Types [...] your doctor or pharmacy? Never 11/07/2023 [facility] Utilities Answer Date Recorded In the [...] often do you attend chur ch or religion services? 1 to 4 times per year [...] Date Recorded PHQ-2 Total Score 5 07/07/2024 [facility] ional Health - Occupational Stress [...] any time in the past 12 m [facility], were you homeless or living in a senior living (including now)? No 11/07/2023 [facility] IP Transportation Answer D ate Recorded [...] encounter Miscellaneous Notes * Telephone Encounter - Keyonna Alfonso MA - 01/18/2025 10:03 AM EDT Sent message to pt to confirm she requested this, if so will need aguilar ?s sent to her Medication Details: Name: Toradol Tablet Dose: 10 mg Sig: PRN Side effects: no Verified Pharmacy: yes Last office visit: 12/08/24 procedure visit Next office visit: 03/02/25 procedure visit Neurology notes reviewed: yes - oral toradol PRN Need JACQUELIN/JACQUELIN result: n/a Last Urine Drug Screen (must be at least annual if on controlled substance): n/a Drug Contract Signed: n/a documented in this encounter Plan of Treatment Upcoming Encounters Date Type Department Care Team (Late st Contact Info) Description 02/02/2025 11:20 AM EDT Telemedicine [facility] [address] [facility] [address] [place] [address] Samm Ledesma, ASSEMBLER [employer] [address] [facility] [address] [place] [address] 02/04/2025 11:00 AM EDT Appointment [facility] Women's Wellness [facility] [place] [address] Tacho Echavarria MD 1 [place] [address] Naya García PA-C [address] [place] [address] 02/04/2025 2:00 PM EDT Appointment [facility] [place] [address] Tacho Echavarria MD [address] [place] [address] 02/04/2025 2:20 PM EDT Appointment [facility] [place] [address] Tacho Echavarria MD [address] [place] [address] 02/10/2025 10:30 AM EDT Office Visit [facility] [address] [place] [address] [address] [place] [address] Sin Tran MD [address] [place] [address] 03/02/2025 11:40 AM EDT Office [facility] [address] [place] [address] [place] [address] [place] [address] 03/02/2025 12:45 PM EDT Procedure visit [facility] [address] [facility] [address] [facility] [address] [place] [address] Samm Ledesma, ASSEMBLER [employer] [address] [place] [address] 04/29/2025 9:15 AM EDT Appointment [facility] [place] [place] [address] Batool Celis MD [address] [place] [address] [place] [address] documented as of this encounter Goals Goal Patient Goal Type Associated Problems Recent Progress Patient-Stated? Author Blood Pressure < 140/90 Blood Pressure 129/95(01/15 2:00 PM EDT) No Chetna Cedeno MD Breast [facility] Breast Health On track(2024 12:01 PM EST) [...] status migrainosus- Primary documented in this encounter Additional Health Concerns Assessment Noted Time PHQ-9 Depression Total Score: 17 024 8:39 AM EST PHQ-2 Depression Total Score: 5 07/07/20 24 8:39 AM EST documented as of this encounter Care Teams Valuer Relationship Specialty [place] [address] [place] [address] PCP - General 06/21/10 Arlyn Schmidt MD [address] [place] [address] Consulting Physician Internal Medicine-Endocrinology, Diabetes & Metabolism 11/28/20 Tacho Echavarria MD [address] [place] [address] Internal Medicine-Medical Oncology 11/12/23 Matt Ulrich MD [address] [place] [address] Surgery-Surgical Oncology 12/04/23 Eze Brock Pastoral Care 12/13/23 Annette Walker, [employer] Sales Consultant 05/13/24 Batool Celis MD 1 [facility] [place] [address] Radiation Oncologist Radiology-Radiation Oncology 06/08/24 documented as of this encounter
--- OUTSIDE RECORDS SUMMARY | 2025-01-31 16:03 | XMS_ITS | Encounter Summary ---
Author Organization [place] [address] Care Team Providers Care Medical Records Administrator Name Role Phone Chetna Cedeno MD Primary Care Provider Arlyn Schmidt MD Unavailable [phone] Tacho Echavarria MD Unavailable [phone] Matt Ulrich MD Unavailable Eze Brock Unavailable Cheryl Nair RN Unavailable [phone] Sanam Murray TIME RECORDER Unavailable Unavailable Annette Walker TIME RECORDER Unavailable [phone] Batool Celis MD Unavailable [phone] Encounter Details Date Type Department Care Team (Late st Contact Info) Description 07/06/2024 Orders Only [facility] [address] [facility] [address] [place] [address] Shilpa Tan MD [address] [place] [phone] Social History Tobacco Use Types Packs/Day Years [...] Date Recorded PHQ-2 Total Score 5 07/07/2024 [facility] of Occupat ional Health - Occupational [...] a senior care (including now)? No 11/07/2023 [facility] IP Transportation Answer D ate Recorded In [...] as of this encounter Functional Status * Alcohol Screening Score Answer Date of Assessment Author 0 07/06/2024 4:00 PM Kayla Lee RN * Drug Screening Score Answer Date of Assessment Author 0 07/06/2024 4:00 PM Kayla Lee RN * Question Answer Date of Assessment Author How often do you have a drin k containing alcohol? 0 07/06/2024 4:00 PM Kayla Lee R N How many drinks containing a lcohol do you have on a typical day when you are drinking? 0 07/06/2024 4:00 PM Kayla Lee R N How often do you have six or more drinks on one occasion? 0 07/06/2024 4:00 PM Eric Lee RN AUDIT-C to Determine Rows 4-10 0 07/06/2024 4:00 PM Kayla Lee RN * Is the person deaf or does he/she have serious difficulty hearing? Answer Date of Assessment Author No 12/06/2022 2:08 PM EDMacarena Brunner CCMA * Is the person blind or [...] 12/06/2022 2:08 PM Macarena Henson CCMA * Question Answer Date of Assessment Author Little interest or pleasure in doing things 2 07/07/2024 8:39 AM Crystal Lockhart MSW Feeling down, depressed, or hopeless 3 07/07/2024 8:39 AM Amanda Lockhart MSW PHQ-2 Total Score 5 07/07/2024 8:39 AM Amanda Lockhart MSW Trouble falling or staying asleep, or sleeping too much 2 07/07/2024 8:39 AM Amanda Lockhart MSW Feeling tired or having little energy 3 07/07/2024 8:39 AM Amanda Lockhart MSW Poor appetite or overeating 3 07/07/2024 8:39 AM Amanda Lockhart MSW Feeling bad about yourself - or that you are a failure or have let yourself or your family down 1 07/07/2024 8:39 AM Amanda Lockhart MSW Trouble concentrating on things, such as reading the newspaper or watching television 2 07/07/2024 8:39 AM Amanda Lockhart MSW Moving or speaking so slowly that other people could have noticed. Or the opposite - being so fidgety or restless that you have been moving around a lot more than usual 0 07/07/2024 8:39 AM Amanda Lockhart MSW Thoughts that you would be better off , or of hurting yourself in some way 1 07/07/2024 8:39 AM Amanda Lockhart MSW PHQ-9 Total Score 17 07/07/2024 8:39 AM Amanda Lockhart MSW If you checked off any problems, how difficult have these problems made it for you to do your work, take care of things at home, or get along with other people? Somewhat difficult 07/07/2024 8:39 AM Amanda Lockhart MSW * Suicide Severity Rating Answer Date of Assessment Author No Risk 07/06/2024 4:32 PM Kayla Lee RN * [place] Suicide Severity Rating Scale (Q shift for moderate and high) Question Answer Date of Assessment Author 1. In the past month, have y ou wished you were or wished you could go to sleep and not wake up? 0 07/06/2024 4:32 PM Kayla Clay RN 2. In the past month, have y ou actually had any thoughts of killing yourself? (If no, skip to question 6) 0 07/06/2024 4:32 PM Kayla Lee, R N 6. Have you ever done anythi ng, started to do anything, or prepared to do anything to end your life? 0 07/06/2024 4:32 PM Kayla Mcmahan RN documented as of this encounter Mental Status [...] 02/02/2025 11:20 AM EDT Telemedicine [facility] [address] [place] [id number] Samm Ledesma, PHOTOGRAPHY SPOTTER [address] [facility] [address] [place], [place] [phone] 02/04/2025 11:00 AM EDT Appointment [facility] Women's Wellness [facility] [place] [address] Tacho Echavarria MD 1 [place] [address] Naya García PA-C [address] [place] [address] [address] [place] [address] 02/04/2025 2:00 PM EDT Appointment [place] [address] Tacho Echavarria MD [address] [place] [address] 02/04/2025 2:20 PM EDT Appointment [facility] [place] [address] Tacho Echavarria MD [address] [place] [address] 02/10/2025 10:30 AM EDT Office Visit [address] [place] [address] Sin Tran MD [address] [place] [address] 03/02/2025 11:40 AM EDT Office Visit [facility] [address] [place] [address] [place] [address] [place] [address] 03/02/2025 12:45 PM EDT Procedure visit [facility] [address] [facility] [address] [place] [address] Samm Ledesma, PHOTOGRAPHY SPOTTER [address] [place] [address] 04/29/2025 9:15 AM EDT Appointment [facility] [place] [place] [address] Batool Celis MD [address] [place] [address] [facility] [place], [place] [id number] documented as of this encounter Goals Goal Patient Goal Type Associated Problems Recent Progress Patient-Stated? Author Blood Pressure < 140/90 Blood Pressure 129/95(01/15 2:00 PM EDT) No Chetna Cedeno MD [facility] Health On track(2024 12:01 PM EST) No Jasmin Porter RN Note: Patient acknowledges understanding of new diagnosis, plan of care, available resources and how to contact Nurse Navigator with any future questions or concerns. [facility] No Jasmin Porter RN Note: Patient will be compliant with monthly SBE and is aware of who to contact for any unusual or concerning findings. Maintain a healthy diet, exercise regularly and maintain an ideal body weight General No Sanam Julio MA documented as of this encounter Procedures Procedure Name Priority Date/Time Associated Diagnosis Comments NEOGENOMICS BREAST PANEL (3 STAIN) Routine 07/06/2024 12:51 PM EST documented in this encounter Results * NEOGENOMICS BREAST PANEL (3 STAIN) (07/06/2024 12:51 PM EST) 07/06/2024 12:5 1 PM EST Narrative [facility] - 09/24/2024 2:57 PM EDT Requesting Provider: MATT Womack Specimen = [id number] us Shilpa Tan MD PATHOLOGY ORDERABLES Final R esult [facility] 1 [place], [place] [id number] documented in this encounter Visit Diagnoses Not on filedocumented in this encounter Additional Health Concerns Infection Onset Date Last Indicated Resolved Time COVID-19 09/04/2024 09/04/2024 09/24/2024 10:1 2 PM EDT Assessment Noted Time PHQ-9 Depression Total Score: 12 024 12:00 PM EDT documented as of this encounter Care Teams Medical Records Administrator Relationship Specialty Start [place] [address] [place] [address] PCP - General 06/21/10 Arlyn Schmidt MD [address] [place], [place] [phone] Consulting Physician Internal Medicine-Endocrinology , Diabetes & Metabolism 11/28/20 Tacho Echavarria MD 1 [place] [address] Internal Medicine-Medical Oncology 11/12/23 Matt Ulrich MD 1 [place] [address] Surgery-Surgical Oncology 12/04/23 Eze Brock Pastoral Care 12/13/23 Cheryl Nair, RN Oncology Nurse Navigator 03/25/2412/13 Sanam Murray MSW [employer] 04/10/24 07/30/24 Annette Walker MSW [employer] 05/13/24 Batool Celis MD [address] [place] [address] [place] [address] Radiation Oncologist Radiology-Radiation Oncology 06/08/24 documented as of this encounter
--- OUTSIDE RECORDS SUMMARY | 2025-01-31 16:03 | XMS_ITS | Encounter Summary ---
Author [place] [address] Care Team Providers Care Car Pincher Name Role Phone Chetna Cedeno MD Primary Care Provider [phone] Arlyn Schmidt MD Unavailable [phone] Tacho Echavarria MD Unavailable [phone] Matt Ulrich MD Unavailable [phone] Eze Brock Unavailable Cheryl Nair RN Unavailable [phone] Annette Walker DIRECTOR OF CASINO MARKETING Unavailable [phone] Batool Celis MD Unavailable [phone] Reason for Visit * Reason Comments Pharmacy Oncology Management Verzenio 10 0mg Encounter Details Date Type Department Care Team (Latest Contact Info) Description 12/10/2024 Specialty Pharmacy [facility] [address] [place] [address] Batool Smith [facility] Pharmacy Oncology Management (Verzenio 100mg) Social History Tobacco Use Types Packs/Day Years [...] from your doctor or pharmacy? Never 11/07/2023 [facility] Utilities Answer Date Recorded In the [...] Date Recorded PHQ-2 Total Score 5 07/07/2024 [facility] [place] of Occupat ional Health - Occupational Stress [...] in a halfway (including now)? No 11/07/2023 [facility] IP Transportation Answer D ate [...] documented in this encounter Progress Notes * Batool Smith RPH - 12/10/2024 3:44 PM EDT [facility] Prescription received for Verzenio (100mg). Prescription does not require a prior authorization. Patient copay is $0. IA has been completed, will contact patient to coordinate fill. * Anisa Lozoya CPhT - 12/10/2024 3:44 PM EDT Specialty Pharmacy Refill Coordination Note Contacted [facility] today regarding refills of Abemaciclib. Copay amount: $0 No answer, unable to leave voicemail. VM not set up note: dose increase * Annette Renee CPhT - 12/10/2024 3:44 PM EDT Specialty Pharmacy Refill Coordination Note Contacted [facility] today regarding refills of Abemaciclib. Medication to be picked up on 12/17. Copay amount: $0.00 Spoke with patient. Patient informed of copay. She was instructed to double up on the 50 mg (had just picked up on 12/03) until she received new rx documented in this encounter Plan of Treatment Upcoming Encounters Date Type Department Care Team (Late [facility]) Description 02/02/2025 11:20 AM EDT Telemedicine [facility] [address] [place] [address] Samm Ledesma, REAL ESTATE INVESTOR [address] [place] [address] 02/04/2025 11:00 AM EDT Appointment [facility] Women's Wellness [facility] [address] Tacho Echavarria MD 1 [place] [address] Naya García PA-C [address] [place] [address] [address] [place] [address] 02/04/2025 2:00 PM EDT Appointment [place] [address] Tacho Echavarria MD [address] [place] [address] 02/04/2025 2:20 PM EDT [facility]ointment [facility] [place] [address] Tacho Echavarria MD [address] [place] [address] 02/10/2025 10:30 AM EDT Office Visit [address] [place] [address] Sin Tran MD [address] [place] [address] 03/02/2025 11:40 AM EDT Office Visit [facility]ULO [place]ERR[place] [address] [place] [address] [place] [address] [place] [address] 03/02/2025 12:45 PM EDT Procedure visit [facility] [address] [place], [place] [id number] Samm Ledesma, REAL ESTATE INVESTOR [address] [place], [place] [id number] 04/29/2025 9:15 AM EDT Appointment [facility] RAD ONC [place], [place] [id number] Batool Celis MD [address] [place] [address] [place] [address] documented as of this encounter Goals Goal Patient Goal Type Associated Problems Recent Progress Patient-Stated? Author Blood Pressure < 140/90 Blood Pressure 129/95(01/15 2:00 PM EDT) No Chetna Cedeno MD Breast [facility] Breast [facility] On track(2024 12:01 PM EST) No Jasmin Porter, RAUL Note: Patient acknowledges understanding of new diagnosis, plan of care, available resources and how to contact Nurse Navigator with any future questions or concerns. [facility] Breast [facility] No Jasmin Porter, RN Note: Patient will [...] documented as of this encounter Care Teams Car Pincher Relationship Specialty [place] [address] [place] [address] PCP - General 06/21/10 Arlyn Schmidt MD [address] [place] [address] Consulting Physician Internal Medicine-Endocrinology , Diabetes & Metabolism 11/28/20 Tacho Echavarria MD 1 [place] [address] Internal Medicine-Medical Oncology 11/12/23 Matt Ulrich MD 1 [place] [address] Surgery-Surgical Oncology 12/04/23 Eze Brock Pastoral Care 12/13/23 Cheryl Nair, RN Oncology Nurse Navigator 03/25/2412/13 Annette Walker, DIRECTOR OF CASINO MARKETING Correction Warden 05/13/24 Batool Celis MD 1 [facility] [place] [address] Radiation Oncologist Radiology-Radiation Oncology 06/08/24 documented as of this encounter
--- OUTSIDE RECORDS SUMMARY | 2025-01-31 16:03 | XMS_ITS | Encounter Summary ---
Author Organization [place] [address] Care Team Providers Care Adhesive Sprayer Name Role Phone Chetna Cedeno MD Primary Care Provider Arlyn Schmidt MD Unavailable [phone] Tacho Echavarria MD Unavailable Matt Ulrich MD Unavailable [phone] Eze Brock Unavailable Cheryl Nair RN Unavailable [phone] Sanam Murray COTTON DISPATCHER Unavailable Unavailable Annette Walker COTTON DISPATCHER Unavailable [phone] Batool Celis MD Unavailable [phone] Encounter Details Date Type Department Care Team (Late st Contact Info) Description 07/06/2024 Orders Only [facility] [address] [place] [address] Shilpa Tan MD [address] [place] [phone] Social History Tobacco Use Types Packs/Day Years [...] doctor or pharmacy? Never 11/07/2023 [facility] Utilities Answer Date Recorded In the past [...] any time in the past 12 m [facility], were you homeless or living in a [place] health care facility (including now)? No 11/07/2023 [facility] IP Transportation Answer D ate Recorded In [...] 07/06/2024 4:32 PM Kayla Lee RN * [place] Suicide Severity Rating Scale (Q shift for [...] 02/02/2025 11:20 AM EDT Telemedicine [facility] [address] [place] [address] [id number] Samm Ledesma, SAP BPC DEVELOPER [address] [place], [place] [id number] 02/04/2025 11:00 AM EDT Appointment [facility] Women's Wellness [facility] [place] [address] Tacho Echavarria MD 1 [place] [address] Naya García PA-C [address] [place] [address] 254 [place] [address] 02/04/2025 2:00 PM EDT Appointment [place] [address] Tacho Echavarria MD [address] [place] [address] 02/04/2025 2:20 PM EDT Appointment [place] [address] Tacho Echavarria MD [address] [place] [address] 02/10/2025 10:30 AM EDT Office Visit [address] [place] [address] Sin Tran MD [address] [place] [address] 03/02/2025 11:40 AM EDT Office Visit [facility] [place] [address] [place] [address] [place] [address] [place] [address] 03/02/2025 12:45 PM EDT Procedure visit [facility] [address] [place] [address] Samm eLdesma, SAP BPC DEVELOPER [address] [place] [address] 04/29/2025 9:15 AM EDT Appointment [facility] [place] [address] Batool Celis MD [address] [place] [address] [facility] [place], [place] [id number] documented as of this encounter Goals Goal Patient Goal Type Associated Problems Recent Progress Patient-Stated? Author Blood Pressure < 140/90 Blood Pressure 129/95(01/15 2:00 PM EDT) No Chetna Cedeno MD [facility] Breast Health On track(2024 12:01 PM EST) No Jasmin Porter RN Note: Patient acknowledges understanding of new diagnosis, plan of care, available resources and how to contact Nurse Navigator with any future questions or concerns. [facility] No Jasmin Porter RN Note: Patient [...] EST) 07/06/2024 12:5 1 PM EST Narrative [facility] LAB - 09/24/2024 2:31 PM EDT Requesting Provider: MATT Womack Specimen = [id number] us Shilpa Tan MD PATHOLOGY ORDERABLES Final R esult [facility] 1 [place], [place] [id number] documented in this encounter Visit Diagnoses Not on filedocumented in this encounter Additional Health Concerns Infection Onset Date Last Indicated Resolved Time COVID-19 09/04/2024 09/04/2024 09/24/2024 10:1 2 PM EDT Assessment Noted Time PHQ-9 Depression Total Score: 12 024 12:00 PM EDT documented as of this encounter Care Teams Adhesive Sprayer Relationship Specialty [place] [address] [place] [address] PCP - General 06/21/10 Arlyn Schmidt MD [address] [place], [place] [address] Consulting Physician Internal Medicine-Endocrinology , Diabetes & Metabolism 11/28/20 Tacho Echavarria MD 1 [place] [address] Internal Medicine-Medical Oncology 11/12/23 Matt Ulrich MD 1 [place] [address] Surgery-Surgical Oncology 12/04/23 Eze Brock Pastoral Care 12/13/23 Cheryl Nair, RN Oncology Nurse Navigator 03/25/2412/13 Sanam Murray MSW Energy Systems Engineer 04/10/24 07/30/24 Annette Walker MSW Energy Systems Engineer 05/13/24 Batool Celis MD [address] [place] [address] [place] [address] Radiation Oncologist Radiology-Radiation Oncology 06/08/24 documented as of this encounter
--- OUTSIDE RECORDS SUMMARY | 2025-01-31 16:03 | XMS_ITS | Encounter Summary ---
Author Organization [place] [address] Care Team Providers Care Net Mender Name Role Phone Chetna Cedeno MD Primary Care Provider [phone] Arlyn Schmidt MD Unavailable [phone] Tacho Echavarria MD Unavailable [phone] Matt Ulrich MD Unavailable [phone] Eze Brock Unavailable Cheryl Nair RN Unavailable [phone] Annette Walker REGIONAL ECONOMIST Unavailable [phone] Batool Celis MD Unavailable [phone] Reason for Visit * Reason Onset Date Comments Cancelled Appointment 12/11/2024 Car in tamera p will not get done till 5 Encounter Details Date Type Department Care Team (Late st Contact Info) Description 12/11/2024 Telephone [facility] Physical Therapy [address] [place] [address] Romana Bowman PTA Cancelled Appointment (Car in shop will not get done till 5 ) Social History Tobacco Use Types Packs/Day [...] often do you attend chur ch or christianity services? 1 to 4 times per year [...] Date Recorded PHQ-2 Total Score 5 07/07/2024 [facility] [place] of Occupat ional Health - Occupational Stress [...] in the past 12 m [facility], were you homeless or living in a fdc (including now)? No 11/07/2023 [facility] IP Transportation Answer [...] encounter Miscellaneous Notes * Telephone Encounter - Thelma Graf - 12/11/2024 1:35 PM EDT Car in shop will not get done till 5 documented in this encounter Plan of Treatment Upcoming Encounters Date Type Department Care Team (Late st Contact Info) Description 02/02/2025 11:20 AM EDT Telemedicine [facility] [address] [facility] [address] [place] [address] Samm Ledesma APRN [address] [place], [place] [phone] 02/04/2025 11:00 AM EDT Appointment [facility] Women's Wellness [facility] [place] [address] Tacho Echavarria MD [address] [place], [place] [address] Naya García PA-C [address] [place] [address] 254 [place] [address] 02/04/2025 2:00 PM EDT Appointment [facility] [place], [place] 313[address] Tacho Echavarria MD [address] [place] [address] 02/04/2025 2:20 PM EDT Appointment [facility] [place] [address] Tacho Echavarria MD [address] [place] [address] [id number] 02/10/2025 10:30 AM EDT Office Visit [facility] [address] [facility] [address] [place] [address] Sin Tran MD [address] [place] [address] 03/02/2025 11:40 AM EDT Office Visit [facility] [place] [address] [place] [address] [place] [address] [place] [address] 03/02/2025 12:45 PM EDT Procedure visit [facility] [address] [place] [address] Samm Ledesma, LEYLA [address] [place] [address] 04/29/2025 9:15 AM EDT Appointment [facility] RAD ONC [place], [place] [phone] Batool Celis MD [address] [place] [address] CANCER CARE [place], [place] [id number] documented as of this encounter Goals Goal [...] documented as of this encounter Care Teams Net Mender Relationship Specialty [place] [address] [place] [address] PCP - General 06/21/10 Arlyn Schmidt MD 1500 [place], [place] 02[address] Consulting Physician Internal Medicine-Endocrinology , Diabetes & Metabolism 11/28/20 Tacho Echavarria MD 1 [place] [address] Internal Medicine-Medical Oncology 11/12/23 Matt Ulrich MD 1 [place] [address] Surgery-Surgical Oncology 12/04/23 Eze Brock Pastoral Care 12/13/23 Cheryl Nair, RAUL Oncology Nurse Navigator 03/25/2412/13 Annette Walker MSW Heating And Ventilating Tender 05/13/24 Batool Celis MD [address] [place] [address] Radiation Oncologist Radiology-Radiation Oncology 06/08/24 documented as of this encounter
--- OUTSIDE RECORDS SUMMARY | 2025-01-31 16:03 | XMS_ITS | Encounter Summary ---
Author Organization [place] [address] Care Team Providers Care Field Artillery Radar Operator Name Role Phone Chetna Cedeno MD Primary Care Provider [phone] Arlyn Schmidt MD Unavailable [phone] Tacho Echavarria MD Unavailable [phone] Matt Ulrich MD Unavailable [phone] Eze Brock Unavailable Cheryl Nair RN Unavailable [phone] Annette Walker OPERATIONAL RISK ANALYST Unavailable [phone] Batool Celis MD Unavailable [phone] Encounter Details Date Type Department Care Team (Late st Contact Info) Description 10/26/2024 Orders Only [facility] Physical Therapy [place] [address] [facility] [address] [place] [address] Shaunna Workman PT Social History Tobacco Use Types Packs/Day Years [...] your doctor or pharmacy? Never 11/07/2023 [facility] Utilities Answer Date Recorded In the [...] any clubs o r organizations such as cheondoism groups, unions, fraternal or athletic groups, or [...] Date Recorded PHQ-2 Total Score 5 07/07/2024 [facility] [place] of Occupat ional Health - Occupational Stress [...] any time in the past 12 m [facility], were you homeless or living in a snf (including now)? No 11/07/2023 [facility] IP Transportation Answer [...] HECTOR [address] [facility] [address] [place] [address] Samm Ledesma, CUSTOM DRESSMAKER [address] [place], [place] [id number] 02/04/2025 11:00 AM EDT Appointment [facility] Women's Wellness [facility] [place] [address] Tacho Echavarria MD [address] [place] [address] Naya García PA-C [address] [place] [address] 254 [place] [address] 02/04/2025 2:00 PM EDT Appointment [place] [address] Tacho Echavarria MD [address] [place] [address] [id number] 02/04/2025 2:20 PM EDT Appointment [facility] On[facility] [place], [place] 7[address]17 Tacho Echavarria MD [address] [place] [address] [id number] 02/10/2025 10:30 AM EDT Office Visit [address] [place] [address] Sin Tran MD [address] [place] [address] 03/02/2025 11:40 AM EDT Office [place] [facility] [place] [facility] [address] [place] [address] [place] [address] [place] [address] 03/02/2025 12:45 PM EDT Procedure visit [facility] NE[facility] [address] [place] [address] Samm Ledesma APRN [address] [place] [address] 04/29/2025 9:15 AM EDT Appointment [facility] RAD ONC [place], [place] 897[address]17 Batool Celis MD [address] [place] [address] [place] [address] documented as of this encounter [...] as of this encounter Care Teams Field Artillery Radar Operator Relationship Specialty [place] [address] [place] [address] PCP - General 06/21/10 Arlyn Schmidt MD [address] [place] [address] Consulting Physician Internal Medicine-Endocrinology , Diabetes & Metabolism 11/28/20 Tacho Echavarria MD 1 [place] [address] Internal Medicine-Medical Oncology 11/12/23 Matt Ulrich MD 1 [place], [place] [phone] Surgery-Surgical Oncology 12/04/23 Eze Brock Pastoral Care 12/13/23 Cheryl Nair, RN Oncology Nurse Navigator 03/25/2412/13 Annette Walker MSW Manager Portable 05/13/24 Batool Celis MD 1 [facility] [place] [address] Radiation Oncologist Radiology-Radiation Oncology 06/08/24 documented as of this encounter
--- OUTSIDE RECORDS SUMMARY | 2025-01-31 16:03 | XMS_ITS | Encounter Summary ---
Author Organization [place] [address] Care Team Providers Care Personnel Officer Name Role Phone Chetna Cedeno MD Primary Care Provider [phone] Arlyn Schmidt MD Unavailable [phone] Tacho Echavarria MD Unavailable [phone] Matt Ulrich MD Unavailable [phone] Eze Brock Unavailable Cheryl Nair RN Unavailable [phone] Annette Walker FRETTED STRING INSTRUMENT REPAIRER Unavailable [phone] Batool Cel[place] MD Unavailable [phone] Reason for Visit * Reason On[place] Date Comments Paperwork/forms 10/21/2024 Lymphedema equip ment paperwork Encounter Details Date Type Department Care Team (Late st Contact Info) Description 10/21/2024 Telephone [facility] Women's Wellness [facility] [place] [address] Mey Walls RN Paperwork/forms (Lymphedema equipment paperwork) Social History Tobacco Use Types Packs/Day Years [...] doctor or pharmacy? Never 11/07/2023 [facility] Utilities Answer Date [...] Recorded PHQ-2 Total Score 5 07/07/2024 [facility] of Occupat ional Health - Occupational [...] any time in the past 12 m [facility], were you homeless or living in a senior living (including now)? No 11/07/2023 [facility] IP Transportation Answer [...] 12/06/2022 2:08 PM EDMacarena Brunner CCMA * Suicide Severity Rating Answer Date of Assessment Author No Risk 11/22/2024 10:36 AM Rodolfo Pickard RN * [place] Suicide Severity Rating Scale (Q shift for moderate and high) Question Answer Date of Assessment Author 1. In the past month, have y ou wished you were or wished you could go to sleep and not wake up? 0 11/22/2024 10:36 AM Rodolfo Pickard RN 2. In the past month, have y ou actually had any thoughts of killing yourself? (If no, skip to question 6) 0 11/22/2024 10:36 AM Rodolfo Pickard RN 6. Have you ever done anythi ng, started to do anything, or prepared to do anything to end your life? 0 11/22/2024 10:36 AM Rodolfo Pickard RN documented as of this encounter Mental Status * Because of a physical, mental or emotional condition, does this person have serious difficulty concentrating, remembering or making decisions? Answer Entry Date Author No 12/06/2022 2:08 PM EDT Macarena Marion CCMA documented in this encounter Miscellaneous Notes * Telephone Encounter - Mey Walls RN - 10/21/2024 2:05 PM EDT Fax confirmation received and paperwork placed in the scan pile to scan into the chart. * Telephone Encounter - Mey Walls RN - 10/21/2024 1:41 PM EDT Received prescription for a lymphedema pump from [employer]. Naya signed it and it was faxed back directly to Tia Lawson at [phone] documented in this encounter Plan of Treatment Upcoming Encounters Date Type Department Care Team (Late st Contact Info) Description 02/02/2025 11:20 AM EDT Telemedicine [facility] [address] [place], [place] [id number] Baltazar Samm Santana, WEB MANAGER [address] [place], [place] [id number] 02/04/2025 11:00 AM EDT Appointment [facility] Women's Wellness [facility] [address] Tacho Echavarria MD [address] [place] [address] Naya García PA-C [address] [place] [address] 254 [place] [address] 02/04/2025 2:00 PM EDT Appointment [place] [address] Tacho Echavarria MD [address] [place] [address] [id number] 02/04/2025 2:20 PM EDT Appointment [facility] On[facility] [place], [place] [phone] Tacho Echavarria MD [address] [place] [address] [id number] 02/10/2025 10:30 AM EDT Office Visit [facility] [place] [address] [place] [address] [address] [facility] 1D [place] [address] Sin Tran MD [address] [place] [address] 03/02/2025 11:40 AM EDT Office Visit [facility]ULO [place]ERR[place] [address] [place] [address] [place] [address] [place] [address] 03/02/2025 12:45 PM EDT Procedure visit [facility] [address] [place], [place] [address] Samm Ledesma, WEB MANAGER [address] [place], [place] [address] 04/29/2025 9:15 AM EDT Appointment [facility] [place] [place] [address] Batool Celis MD [address] [place] [address] [place] [address] documented as of this encounter [...] Noted Time PHQ-9 Depression Total Score: 17 07/07/ 024 8:39 AM EST PHQ-2 Depression Total Score: 5 07/07/20 24 8:39 AM EST documented as of this encounter Care Teams Personnel Officer Relationship Specialty [place] [address] [place] [address] PCP - General 06/21/10 Arlyn Schmidt MD [address] [place], [place] [address] Consulting Physician Internal Medicine-Endocrinology , Diabetes & Metabolism 11/28/20 Tacho Echavarria MD 1 [place], [place] [phone] Internal Medicine-Medical Oncology 11/12/23 Matt Ulrich MD 1 [place], [place] [id number] Surgery-Surgical Oncology 12/04/23 Eze Brock Pastoral Care 12/13/23 Cheryl Nair, RN Oncology Nurse Navigator 03/25/2412/13 Annette Walker, ARACELI Unit Support Representative 05/13/24 Batool Celis MD 1 [facility] [place] [address] Radiation Oncologist Radiology-Radiation Oncology 06/08/24 documented as of this encounter
--- OUTSIDE RECORDS SUMMARY | 2025-01-31 16:03 | XMS_ITS | Encounter Summary ---
Author Organization [place] [address] Care Team Providers Care Machine Assembler Supervisor Name Role Phone Chetna Cedeno MD Primary Care Provider [phone] Arlyn Schmidt MD Unavailable [phone] Tacho Echavarria MD Unavailable [phone] Matt Ulrich MD Unavailable [phone] Eze Brock Unavailable Cheryl Nair RN Unavailable [phone] Annette Walker MANAGER INTERNAL Unavailable [phone] Batool Celis MD Unavailable [phone] Reason for Visit * Reason Comments Pharmacy Migraine Medication Management Qulipta Encounter Details Date Type Department Care Team (Latest Contact Info) Description 12/09/2024 Specialty Pharmacy [facility] [address] [place] [address] Annamarie Mark CPhT Pharmacy Migraine [...] doctor or pharmacy? Never 11/07/2023 [facility] [place] Utilities Answer Date Recorded In the past [...] any clubs o r organizations such as adventist groups, unions, fraternal or athletic groups, or [...] Date Recorded PHQ-2 Total Score 5 07/07/2024 [facility] - Occupational [...] in a alf (including now)? No 11/07/2023 [facility] IP Transportation Answer D [...] Progress Notes * Annamarie Mark CPhT - 12/09/2024 4:46 PM EDT Specialty Pharmacy Refill Coordination Note Contacted El Cole today regarding refills of Qulipta. Medication to be picked up on 12/10. Copay amount: $0 Spoke with patient. Patient informed of copay. documented in this encounter Plan of Treatment Upcoming Encounters Date Type Department Care Team (Late st Contact Info) Description 02/02/2025 11:20 AM EDT Telemedicine [facility] [address] [facility] [address] [place] [address] Samm Ledesma, DROP MAN [address] [id number] 02/04/2025 11:00 AM EDT Appointment [facility] Women's Wellness [facility] [place] [address] Tacho Echavarria MD [address] [place] [address] Naya García PA-C [address] [place] [address] 02/04/2025 2:00 PM EDT Appointment [facility] [place] [address] Tacho Echavarria MD [address] [place] [address] 02/04/2025 2:20 PM EDT Appointment [facility] [place], [place] [phone] Tacho Echavarria MD [address] [place] [address] [id number] 02/10/2025 10:30 AM EDT Office Visit [facility] [address] [facility] [address] [place] [address] Sin Tran MD [address] [place] [address] 03/02/2025 11:40 AM EDT Office Visit [facility] [place] [address] [place] [address] [place] [address] [place] [address] 03/02/2025 12:45 PM EDT Procedure visit [facility] [address] [place] [address] Samm Ledesma, DROP MAN [address] [place] [address] 04/29/2025 9:15 AM EDT Appointment [facility] RAD ONC [place], [place] [phone] Batool Celis MD [address] [place] [address] CAN[place]ER [place], [place] [id number] documented as of this encounter Goals Goal [...] and maintain an ideal body weight General aSnam Champion MA documented as of this encounter Visit Diagnoses Not on filedocumented in this encounter Additional Health Concerns Assessment Noted Time PHQ-9 Depression Total Score: 17 024 8:39 AM EST PHQ-2 Depression Total Score: 5 07/07/20 24 8:39 AM EST documented as of this encounter Care Teams Machine Assembler Supervisor Relationship Specialty [place] [address] [place] [address] PCP - General 06/21/10 Arlyn Schmidt MD [address] [place] [address] Consulting Physician Internal Medicine-Endocrinology , Diabetes & Metabolism 11/28/20 Tacho Echavarria MD 1 [place] [address] Internal Medicine-Medical Oncology 11/12/23 Matt Ulrich MD 1 [place] [address] Surgery-Surgical Oncology 12/04/23 Eze Brock Pastoral Care 12/13/23 Cheryl Nair, RN Oncology Nurse Navigator 03/25/2412/13 Annette Walker MSW Pricing Consultant 05/13/24 Batool Celis MD 1 [place] [address] Radiation Oncologist Radiology-Radiation Oncology 06/08/24 documented as of this encounter
--- OUTSIDE RECORDS SUMMARY | 2025-01-31 16:03 | XMS_ITS | Encounter Summary ---
Author Organization [place] [address] Care Team Providers Care Bryologist Name Role Phone Chetna Cedeno MD Primary Care Provider [phone] Arlyn Schmidt MD Unavailable [phone] Tacho Echavarria MD Unavailable [phone] Matt Ulrich MD Unavailable [phone] Eze Brock Unavailable Annette Walker Unavailable [phone] Batool Celis MD Unavailable [phone] Reason for Visit * Reason Onset Date Comments Follow-up 12/23/2024 Encounter Details Date Type Department Care Team (Late Contact Info) Description 12/23/2024 Telephone [facility] 1 [place], [place] [id number] Tacho Echavarria MD 1 [place], [place] [id number] Follow-up Social History Tobacco Use Types Packs/Day Years [...] doctor or pharmacy? Never 11/07/2023 [facility] Utilities Answer Date Recorded In the past [...] the past 12 m [facility], were you homeless or living in a alf (including now)? No 11/07/2023 [facility] IP Transportation Answer D ate [...] Telephone Encounter - Rosana Gupta RN - 12/23/2024 3:34 PM EDT Routing to SW to see if they can assist * Telephone Encounter - Missy Almaraz - 12/23/2024 3:25 PM EDTSumjewell: AMBERLY PT phone number is disconnected, no HIPAA on file. Sent [email or web address] message for pt to call [phone] schedule appointment and update personal info. * Telephone Encounter - Rosana Gupta RN - 12/23/2024 1:22 PM EDT Patient needs to get loretta draws every 3 months. [employer] system shows the kit was mailed to the patient. She can take it to any clinic to have drawn. I think she would benefit from home phlebotomy, as transportation may be an issue. Patient was seen in clinic on 12/10/24 but did not bring the kit with her to have blood drawn. She isdue back in January and if she is unable to get it drawn sooner, we can draw it at that appt. Please schedule patient f/u labs and appt * Telephone Encounter - Aliya Colorado - 12/23/2024 11:56 AM EDTSumjewell: Jani Follow up Reason for call Loretta F/U: Will the patient continue to get ctDNA draws for Signatera? Per Loretta The patient indicated to us that we should complete the next draw in January following thecompletion of IO therapy. We received notice that the patient was due back in the clinic on 12/10/24, but we have not received any blood specimen for this patient. Can you please reach out to the patient to schedule their blood draw at their earliest convenience? Should this patient also be moved over to clinic managed? She does not currently have a follow up scheduled. documented in this encounter Plan of Treatment Upcoming Encounters Date Type Department Care Team (Late st Contact Info) Description 02/02/2025 11:20 AM EDT Telemedicine [facility] [address] [facility] [address] [place] [address] Samm Ledesma, PRINTING GREY CLOTH TENDER [address] [facility] [address] [address] [place], [place] [id number] 02/04/2025 11:00 AM EDT Appointment [facility] Women's Wellness [facility] [place] [phone] Tacho Echavarria MD 1 [place] [id number] Naya García PA-C [address] [place] [address] [address] [place] [phone] 02/04/2025 2:00 PM EDT Appointment [facility] [place], [place] 9282517 Tacho Echavarria MD [address] [place] [id number] 02/04/2025 2:20 PM EDT Appointment [facility] [place], [place] 1038517 Tacho Echavarria MD [address] [place] [address] [phone] 02/10/2025 10:30 AM EDT Office Visit [facility] [address] [facility] [address] [place] [address] Sin Tran MD [address] [place] [address] 03/02/2025 11:40 AM EDT Office Visit [facility] [place] [facility] [address] [place] [address] [place] [address] [place] [address] 03/02/2025 12:45 PM EDT Procedure visit [facility] [address] [facility] [address] [address] [place], [place] [phone] Samm Ledesma, PRINTING GREY CLOTH TENDER [address] [facility] [address] [place], [place] [phone] 04/29/2025 9:15 AM EDT Appointment [facility] RAD [place]C [place], [place] [phone] Batool Celis MD [address] [place] [address] CANCER CARE [place], [place] [phone] documented as of this encounter Goals Goal [...] documented as of this encounter Care Teams Bryologist Relationship Specialty [place] [address] [place] [address] PCP - General 06/21/10 Arlyn Schmidt MD [address] [place] [address] Consulting Physician Internal Medicine-Endocrinology, Diabetes & Metabolism 11/28/20 Tacho Echavarria MD 1 [place] [address] Internal Medicine-Medical Oncology 11/12/23 Matt Ulrich MD 1 [place] [address] Surgery-Surgical Oncology 12/04/23 Eze Brock Pastoral Care 12/13/23 Annette Walker MSW Welding Machine Assembler 05/13/24 Batool Celis MD 1 [facility] CANCER CARE [place], [place] [phone] Radiation Oncologist Radiology-Radiation Oncology 06/08/24 documented as of this encounter
--- OUTSIDE RECORDS SUMMARY | 2025-01-31 16:03 | XMS_ITS | Encounter Summary ---
Author Organization [place] [address] Care Team Providers Care Test Rack Operator Name Role Phone Chetna Cedeno MD Primary Care Provider [phone] Arlyn Schmidt MD Unavailable [phone] Tacho Echavarria MD Unavailable [phone] Matt Ulrich MD Unavailable [phone] Eze Brock Unavailable Cheryl Nair RN Unavailable [phone] Annette Walker CONTACT LENS ASSISTANT Unavailable [phone] Batool Celis MD Unavailable [phone] Reason for Visit * Reason Comments Pharmacy Migraine Medication Management Ubrelvy Encounter Details Date Type Department Care Team (Latest Contact Info) Description 12/08/2024 Specialty Pharmacy [facility] [address] [place] [address] Ras Thomas [facility] Pharmacy Migraine Medication Management (Ubrelvy) Social History [...] from your doctor or pharmacy? Never 11/07/2023 [facility] Utilities Answer Date Recorded In [...] in the past 12 m [facility], were you homeless or living in a fpc (including now)? No 11/07/2023 [facility] IP Transportation Answer D ate [...] documented in this encounter Progress Notes * Ras Thomas RPH - 12/08/2024 3:23 PM EDT [facility] Prescription received for Ubrelvy (100mg). Prescription requires prior authorization. Will completeclinical review. Patient will not need IA if able to fill here. * Ras Thomas RPH - 12/08/2024 3:23 PM EDT [facility] - Migraine Clinical Review El Cole is a 59 y.o. female. Migraine: Patient was prescribed Ubrogepant (Ubrelvy) 100mg PO at onset of migraine, may repeat dose in 2 hours if needed for initiation of Acute treatment of migraine with or without aura (G43.711). Medication needs loading dose: No Number of migraine days per month: 13-24 Are migraines Chronic or Episodic? Chronic Allergies Allergen Reactions Dilaudid [Hydromorphone] Rash itching [...] Tree Nuts Shortness Of Breath and Swelling Risk/ Status: Postmenopausal Test: Preg Test, Ur (Pos/Neg) Date Value 01/26/2015 Neg Lab Results Component Value Date CREATININE 0.57 11/21/2024 BUN 14 11/21/2024 AST 20 11/11/2024 ALT 12 11/11/2024 Current Outpatient Medications - WARNING: List may be incomplete due to filtering Medication Sig Verzenio Take 1 Tablet by mouth 2 [...] into the lungs daily. fluticasone propionate 1 [place] by Nasal route daily. Aerochamber MV 1 Each by [facility].(Non-Drug; Combo Route) route as needed. ketorolac Take 1 Tablet by mouth every 6 hours as needed for Pain for up to 5 days. lidocaine-prilocaine Apply dime size amount to port [...] 500 mcg/ml in pain pump. 60 mcg/day Current migraine treatment: Botox (started 11/11/2019- restarted 03/17/2024) Qulipta 30 mg daily (started 09/2024) Tizanidine PRN Compazine Toradol (CB) Past/Failed headache therapy: Ubrelvy Nurtec - ineffective Toradol PO- works prn Ajovy Topamax Ultram Imitrex - tongue swelling Does patient have aura? No Has medication overuse headache been considered and potentially offending medications(s) discontinued? Yes Patient has the following contraindications/precautions to triptan use: Allergy - Tongue swelling Will be used with another CGRP that is for prevention Clinical Impression: Clinically appropriate per current guidelines. Ras Thomas RPH Specialty Pharmacist * Annette Turcios CPhT - 12/08/2024 3:23 PM EDT [facility] Prior Authorization Submitted PA for Ubrelvy to [employer] insurance via [employer] ([id number]). Will follow up on 12/11. * Annamarie Mark CPhT - 12/08/2024 3:23 PM EDT [facility] Prior Authorization Determination Received notice of PA approval for Ubrelvy. PA approved from 12/09/2024 to 03/11/2025. Patient is able to fill at [facility]. Copay is $0. Medication to be picked up on 12/10. Spoke with patient. Initial assessment not needed for medication. Medication is able to be delivered via [employer]. documented in this encounter Plan of Treatment Upcoming Encounters Date Type Department Care Team (Late st Contact Info) Description 02/02/2025 11:20 AM EDT Telemedicine [facility] [address] [place] [address] Samm Ledesma APRN [address] [facility] [address] [place] [address] 02/04/2025 11:00 AM EDT Appointment [facility] Women's Wellness [facility] [place] [address] Tacho Echavarria MD 1 [place] [address] Naya García PA-C [address] [place] [address] 254 [place] [address] 02/04/2025 2:00 PM EDT Appointment [place] [address] Tacho Echavarria MD [address] [place] [address] 02/04/2025 2:20 PM EDT Appointment [facility] Oncology [place], [place] [phone] Tacho Echavarria MD [address] [place] [address] 02/10/2025 10:30 AM EDT Office Visit [facility] [address] [facility] [address] [place] [address] Sin Tran MD [address] [place] [address] 03/02/2025 11:40 AM EDT Office Visit [facility] [place] [address] [place] [address] [place] [address] [place] [address] 03/02/2025 12:45 PM EDT Procedure visit [facility] [address] [place] [address] Samm Ledesma APRN [address] [place] [address] 04/29/2025 9:15 AM EDT Appointment [facility] [place] [address] Batool Celis MD [address] [place] [address] [place] [address] documented as of this encounter Goals Goal Patient Goal Type Associated Problems Recent Progress Patient-Stated? Author Blood Pressure < 140/90 Blood Pressure 129/95(01/15 2:00 PM EDT) No Chetna Cedeno MD Breast [facility] Breast Health On track(2024 12:01 PM EST) No Jasmin Porter, RAUL Note: Patient acknowledges understanding of new diagnosis, plan of care, available resources and how to contact Nurse Navigator with any future questions or concerns. Breast [facility] Breast Health No Jasmin Porter, RN Note: [...] documented as of this encounter Care Teams Test Rack Operator Relationship Specialty [place] [address] [place] [address] PCP - General 06/21/10 Arlyn Schmidt MD [address] [place] [address] Consulting Physician Internal Medicine-Endocrinology , Diabetes & Metabolism 11/28/20 Tacho Echavarria MD 1 [place] [address] Internal Medicine-Medical Oncology 11/12/23 Matt Ulrich MD 1 [place] [address] Surgery-Surgical Oncology 12/04/23 Eze Brock Pastoral Care 12/13/23 Cheryl Nair, RN Oncology Nurse Navigator 03/25/2412/13 Annette Walekr, CONTACT LENS ASSISTANT Field Assessor 05/13/24 Batool Celis MD 1 [facility] [address] Radiation Oncologist Radiology-Radiation Oncology 06/08/24 documented as of this encounter
--- OUTSIDE RECORDS SUMMARY | 2025-01-31 16:03 | XMS_ITS | Encounter Summary ---
Author Organization [place] [address] Care Team Providers Care Elementary [employer] Tutor Name Role Phone Chetna Cedeno MD Primary Care Provider [phone] Leslie Cooley RETAIL SUPPORT MANAGER Unavailable UnaBatool Talley SUPERVISOR TANK CLEANING Unavailable Unavailab Arlyn Disla MD Unavailable [phone] Cheryl Nair RN Unavailable [phone] Tacho Echavarria MD Unavailable [phone] Matt Ulrich MD Unavailable [phone] Hilary Clemens RN Unavailable Unavaila Eze Caro Unavailable Shila Albrecht RN Unavailable Unavail able Cheyanne To RN Unavailable UnavailRayna Johnson RN Unavailable Unavailab Shilpa Olivarez RN Unavailable [phone] Tulio Duong RN Unavailable Unavailable Yaquelin Weaver RN Unavailable Unavailable Pma Wang RN Unavailable Unavailable Jazmín Nair RN Unavailable Unavailable Fidel Rainey RN Unavailable Unavailable Cheryl Nair RN Unavailable [phone] Ophelia Lala RN Unavailable Glo Lee RN Unavailable Unavailab Sanam Evans IT OPERATIONS SPECIALIST Unavailable Unavailable Hilary Clemens RN Unavailable Unavaila Ruthy Clayton RN Unavailable Unavailable Rayna Partida RN Unavailable Unavailab Artur Nelson RN Unavailable Unavailable Annette Walker IT OPERATIONS SPECIALIST Unavailable [phone] Emmie Crain RN Unavailable Unavailable Brigida Enriquez RN Unavailable Unavailable Fidel Rainey RN Unavailable Unavailable Batool Celis MD Unavailable [phone] Encounter Details Date Type Department Care Team (Late st Contact Info) Description 07/12/2015 Orders Only [facility] [address] [facility] [address] [place] [address] Stone Cronin MD Social History Tobacco Use Types Packs/Day Years Used Date Smoking Tobacco: Never Smokeless Tobacco: Never Alcohol Use Standard Drinks/Week Comments No 0 (1 standard drink = 0.6 oz pur e alcohol) Sexually Active Control Partners Comments Never Comments No Sex and Gender Information Value Date Recorded Sex Assigned at Not on file Legal Sex Female 5:20 PM EDT Gender Identity Not on file Sexual Orientation Not on file documented as of this encounter Plan of Treatment Upcoming Encounters Date Type Department Care Team (Late st Contact Info) Description 02/02/2025 11:20 AM EDT Telemedicine [facility] [address] [facility] [address] [place] [address] Samm Ledesma, BILLING ASSOCIATE [address] [facility] [address] [place] [address] 02/04/2025 11:00 AM EDT Appointment [facility] Women's Wellness [facility] [place] [phone] Tacho Echavarria MD 1 [place] [id number] Naya García PA-C [address] [place] [address] 02/04/2025 2:00 PM EDT Appointment [facility] [place] [phone] Tacho Echavarria MD 1 [place] [address] 02/04/2025 2:20 PM EDT Appointment [facility] Medical Oncology [place], [place] 264[address] Tacho Echavarria MD 1 [place], [place] [phone] 02/10/2025 10:30 AM EDT Office Visit [facility] [address] [facility] [address] [place] [address] Sin Tran MD [address] [place] [address] 03/02/2025 11:40 AM EDT Office Visit [facility] [address] [place] [address] [place] [address] [place] [address] 03/02/2025 12:45 PM EDT Procedure visit [facility] [address] [facility] [address] [place] [id number] Samm Ledesma, BILLING ASSOCIATE [address] [facility] [facility] [address] [place], [place] [phone] 04/29/2025 9:15 AM EDT Appointment [facility] RAD ONC [place], [place] [phone] Batool Celis MD [address] [place] [address] CANCER CARE [place], [place] [phone] documented as of this encounter Procedures Procedure Name Priority Date/Time Associated Diagnosis Comments GMED COLONOSCOPY Routine 07/12/2015 2:30 PM EST documented in this encounter Results * GMED COLONOSCOPY (07/12/2015 2:30 PM EST) 07/12/2015 2:30 PM EST Impressions [facility] - 07/12/2015 3:30 PM EST Normal [...] us Stone Cronin MD GI PROCEDURE ORDERABLES Doirs mcmahon Result [facility] 1 [place] [address] documented in this encounter Visit Diagnoses Not on filedocumented in this encounter Additional Health Concerns Infection Onset Date Last Indicated Resolved Time R/O Influenza 07/05/2019 07/05/2019 02/24/2020 7:2 1 AM EDT R/O COVID-19 11/16/2019 11/16/2019 11/17/2019 6:14 PM EDT R/O COVID-19 2020 2020 06/20/2020 12:1 0 AM EST R/O COVID-19 03/15/2021 03/15/2021 03/16/2021 5:11 AM EDT COVID-19 02/06/2023 02/06/2023 02/26/2023 10:1 2 PM EDT COVID-19 09/04/2024 09/04/2024 09/24/2024 10:1 2 PM EDT documented as of this encounter Care Teams Elementary School Tutor Relationship Specialty [place] [address] [place] [address] PCP - General 06/21/10 Leslie Cooley LSW Greenhouse Specialist 01/28/19 07/15/19 Batool Myers LCSW Greenhouse Specialist 02/13/19 07/15/19 Arlyn Schmidt MD [address] [place] [address] Consulting Physician Internal Medicine-Endocrinolog y, Diabetes & Metabolism 11/28/20 Cheryl Nair, RN Oncology Nurse Navigator 10/29/2302/05 Tacho Echavarria MD [address] [place] [address] Internal Medicine-Medical Oncology 11/12/23 Matt Ulrich MD [address] [place] [address] Surgery-Surgical Oncology 12/04/23 Hilary Clemens, RN Registered Nurse Infusion Therapy 12/05/23 12/05/23 Eze Brock Pastoral Care 12/13/23 Shila Albrecht, RN Registered Nurse Infusion Therapy 12/19/23 12/19/23 Cheyanne To, RN Registered Nurse Infusion Therapy 01/16/24 01/16/24 Rayna Partida, RN Registered Nurse Infusion Clinic 01/23/24 01/23/24 Shilpa Cline, RAUL Oncology Nurse Navigator 02/04/2403/09 Tulio Duong, RN Registered Nurse Infusion Therapy 02/06/24 02/06/24 Yaquelin Weaver, RN Registered Nurse 02/13/24 02/13/24 Pam Wang RN Registered Nurse Infusion Therapy 02/20/24 02/20/24 Jazmín Nair, RN Registered Nurse Infusion Therapy 02/27/24 02/27/24 Fidel Rainey, RN Registered Nurse Infusion Therapy 03/05/24 03/05/24 Cheryl Nair, RN Oncology Nurse Navigator 03/25/2412/13 Ophelia Lala, RN Registered Nurse Infusion Therapy 03/27/24 03/27/24 Glo Lee, RN Registered Nurse Infusion Therapy 04/03/24 04/03/24 Sanam Murray, IT OPERATIONS SPECIALIST Greenhouse Specialist 04/10/24 07/30/24 Hilary Clemens, RN Registered Nurse Infusion Therapy 04/21/24 04/21/24 Ruthy Walker RN Registered Nurse Infusion Therapy 04/24/24 04/24/24 Rayna Partida RN Registered Nurse Infusion Clinic 05/01/24 05/01/24 Artur Roberts RN Registered Nurse Infusion Therapy 05/07/24 05/07/24 Annette Walker, IT OPERATIONS SPECIALIST Greenhouse Specialist 05/13/24 Emmie Crain, RN Registered Nurse Infusion Therapy 05/14/24 05/14/24 Brigida Enriquez, RN Registered Nurse Infusion Clinic 05/21/24 05/21/24 Fidel Rainey, RN Registered Nurse Infusion Therapy 05/28/24 05/28/24 Batool Celis MD [address] [place] [address] [place] [address] Radiation Oncologist Radiology-Radiation Oncology 06/08/24 documented as of this encounter
--- OUTSIDE RECORDS SUMMARY | 2025-01-31 16:03 | XMS_ITS | Encounter Summary ---
Author [place] [address] Care Team Providers Care Bag Inspector Name Role Phone Chetna Cedeno MD Primary Care Provider [phone] Arlyn Schmidt MD Unavailable [phone] Tacho Echavarria MD Unavailable Matt Ulrich MD Unavailable [phone] Eze Brock Unavailable Cheryl Nair RN Unavailable [phone] Annette Walker FOOTBALL SCOUT Unavailable [phone] Batool Celis MD Unavailable [phone] Encounter Details Date Type Department Care Team (Late st Contact Info) Description 12/02/2024 Orders Only Cancer Care Medical Oncology [place], [place] [id number] Tacho Echavarria MD [address] [place] [address] [id number] 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) [...] any clubs o r organizations such as anglican groups, unions, fraternal or athletic groups, or [...] Date Recorded PHQ-2 Total Score 5 07/07/2024 [facility] of Occupat ional Health - [...] a skilled nursing (including now)? No [facility]/07/2023 [facility] IP Transportation Answer D ate Recorded In [...] HECTOR [address] [facility] [address] [place] [address] Samm Ledesma APRN [address] [address] [place], [place] [id number] 02/04/2025 11:00 AM EDT Appointment [facility] [place] [address] Tacho Echavarria MD [address] [place] [address] Naya García PA-C [address] [place] [address] [address] [place] [address] 02/04/2025 2:00 PM EDT Appointment [facility] [place], [place] [id number] Tacho Echavarria MD [address] [place] [address] [id number] 02/04/2025 2:20 PM EDT Appointment [facility] Care Medical Oncology [place], [place] [phone] Tacho Echavarria MD [address] [place] [address] 02/10/2025 10:30 AM EDT Office Visit [facility] Sarah [address] [facility] [address] [place] [address] Sin Tran MD [address] [facility] [place] [address] 03/02/2025 11:40 AM EDT Office [place] [facility] [address] [place] [address] [place] [address] [place] [address] 03/02/2025 12:45 PM EDT Procedure visit [facility] [address] [place], [place] [phone] Samm Ledesma APRN [address] [address] [place], [place] [id number] 04/29/2025 9:15 AM EDT Appointment [place] [address] Batool Celis MD [address] [place] [address] [facility] [place], [place] [phone] documented as of this encounter Goals Goal [...] - 145 mmol/L 12/10/2024 3:08 PM EDT [facility] Potassium 3.9 3.5 - 5.0 mmol/L 12/10/2024 3:08 PM EDT [facility] Chloride 105 98 - 107 mmol/L 12/10/2024 3:08 PM EDT [facility] Total CO2 23 22 - 29 mmol/L 12/10/2024 3:08 PM EDT [facility] Anion Gap 12 7 - 16 mmol/L 12/10/2024 3:08 PM EDT [facility] Calcium 8.8 8.6 - 10.4 mg/dL 12/10/2024 3:08 PM EDT [facility] Glucose Lvl 100(H) 70 - 99 mg/dL 12/10/2024 3:08 PM EDT [facility] BUN 9 6 - 20 mg/dL 12/10/2024 3:08 PM EDT [facility] Creatinine 0.75 0.51 - 1.30 mg/dL 12/10[facility]24 [facility] Albumin 4.0 3.5 - 5.2 gm/dL 12/10/2024 3:08 PM EDT [facility] Total Protein 6.3(L) 6.4 - 8.3 gm/dL 12/10/2024 3:08 PM EDT [facility] Bili Total 0.4 0.2 - 1.3 mg/dL 12/10/2024 3:08 PM EDT [facility] ALT 13 <=41 U/L 12/10/2024 3:08 PM EDT [facility] AST 21 <=40 U/L 12/10/2024 3:08 PM EDT [facility] Alk Phos 110 36 - 123 U/L 12/10/2024 3:08 PM EDT [facility] eGFR (CKD-EPIcr 2020) 92 >=60 mL/min/1.7 3 m2 12/10/2024 3:08 PM EDT [facility] Comment:Estimated GFR was ca lculated using the CKD-EPIcr (2020) equation refit without race. The equation is recommended by the National Kidney Foundation - [place] [employer] of Nephrology Task Force. Blood VENOUS BLOOD / Unknown Port / Unknown 12/10/2024 2:43 PM EDT 12/10/2024 2:46 PM EDT Tacho Echavarria MD CHEMISTRY ORDERABLES Final Result [facility] [address] [place] [id number] * (ABNORMAL) CBC WITH DIFF (12/10/2024 2:43 PM EDT) WBC 5.1 3.7 - 10.3 x10(3)/mc L 12/10/2024 2:51 PM EDT [facility] RBC 3.33(L) 3.90 - 5.20 x10(6)/mc L 12/10/2024 2:51 PM EDT [facility] Hgb 9.9(L) 11.2 - 15.7 g/dL 12/10/2024 2:51 PM EDT [facility] Hct 30.2(L) 34.0 - 45.0 % 12/10/2024 2:51 PM EDT [facility] MCV 90.7 80.0 - 100.0 fL 12/10/2024 2:51 PM EDT [facility] MCH 29.7 26.0 - 34.0 pg 12/10/2024 2:51 PM EDT [facility] MCHC 32.8 30.7 - 35.5 g/dL 12/10/2024 2:51 PM EDT [facility] RDW 15.0(H) <=14.9 % 12/10/2024 2:51 PM EDT [facility] Platelet 174 155 - 369 x10(3)/mc L 12/10/2024 2:51 PM EDT [facility] MPV 8.7(L) 8.8 - 12.5 fL 12/10/2024 2:51 PM EDT [facility] Neut # Prelim 3.2 1.6 - 6.1 x10(3)/mc L 12/10/2024 2:51 PM EDT [facility] Comment:Preliminary automate d absolute neutrophil count. Value may change if manual differential is indicated. Neut Percent 62.1 % 12/10/2024 2:51 PM EDT [facility] Comment:Neutrophils equals s egs plus bands Imm Gran% 0.2 % 12/10/2024 2:51 PM EDT [facility] Comment:Automated count of m etamyelocytes, myelocytes and promyelocytes. Lymph Percent 29.4 % 12/10/2024 2:51 PM EDT [facility] Jerome Percent 5.7 % 12/10/2024 2:51 PM EDT [facility] Eos Percent 1.8 % 12/10/2024 2:51 PM EDT [facility] Baso Percent 0.8 % 12/10/2024 2:51 PM EDT [facility] Neut # 3.2 1.6 - 6.1 x10(3)/mc L 12/10/2024 2:51 PM EDT [facility] Comment:Neutrophils equals s egs plus bands IMMGRAN# 0.0 0.0 - 0.1 x10(3)/mc L 12/10/2024 2:51 PM EDT [facility] Comment:Automated count of m etamyelocytes, myelocytes and promyelocytes. An absolute IG <0.1 is reported as 0.0. Lymph # 1.5 1.2 - 3.9 x10(3)/mc L 12/10/2024 2:51 PM EDT [facility] Jerome # 0.3 0.3 - 0.9 x10(3)/mc L 12/10/2024 2:51 PM EDT [facility] Eos# 0.1 0.0 - 0.5 x10(3)/mc L 12/10/2024 2:51 PM EDT [facility] Baso # 0.0 0.0 - 0.1 x10(3)/mc L 12/10/2024 2:51 PM EDT [facility] Blood VENOUS BLOOD / Unknown Port / Unknown 12/10/2024 2:43 PM EDT 12/10/2024 2:45 PM EDT Tacho Echavarria MD HEMATOLOGY ORDERABLES Final Result [facility] 1 [place] [address] documented in this encounter Visit Diagnoses Diagnosis 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)- Primary documented in this encounter Additional Health Concerns Assessment Noted Time PHQ-9 Depression Total Score: 17 024 8:39 AM EST PHQ-2 Depression Total Score: 5 07/07/20 24 8:39 AM EST documented as of this encounter Care Teams Bag Inspector Relationship Specialty [place] [address] [place] [id number] PCP - General 06/21/10 Arlyn Schmidt MD [address] [place] [address] Consulting Physician Internal Medicine-Endocrinology , Diabetes & Metabolism 11/28/20 Tacho Echavarria MD 1 [place] [address] Internal Medicine-Medical Oncology 11/12/23 Matt Ulrich MD 1 [place] [address] Surgery-Surgical Oncology 12/04/23 Eze Brock Pastoral Care 12/13/23 Cheryl Nair, RN Oncology Nurse Navigator 03/25/2412/13 Annette Walker, FOOTBALL SCOUT Director Of Admissions 05/13/24 Batool Celis MD [address] [place] [address] [place] [address] Radiation Oncologist Radiology-Radiation Oncology 06/08/24 documented as of this encounter
--- OUTSIDE RECORDS SUMMARY | 2025-01-31 16:03 | XMS_ITS | Encounter Summary ---
Author Organization [place] [address] Care Team Providers Care Psychiatric Orderly Name Role Phone Chetna Cedeno MD Primary Care Provider [phone] Arlyn Schmidt MD Unavailable [phone] Tacho Echavarria MD Unavailable [phone] Matt Ulrich MD Unavailable [phone] Eze Brock Unavailable Cheryl Nair RN Unavailable [phone] Annette Walker HOTEL NIGHT AUDITOR Unavailable [phone] Batool Celis MD Unavailable [phone] Encounter Details Date Type Department Care Team (Late st Contact Info) Description 12/10/2024 Social Work [facility] Cancer Care [facility] [place] [address] Annette Walker, HOTEL NIGHT AUDITOR Social History Tobacco Use Types Packs/Day Years [...] any clubs o r organizations such as mu-ism groups, unions, fraternal or athletic groups, or [...] Date Recorded PHQ-2 Total Score 5 07/07/2024 [facility] [place] of Occupat ional Health - Occupational Stress [...] any time in the past 12 m [facility], were you homeless or living in a correction (including now)? No 11/07/2023 [facility] IP Transportation Answer D ate [...] Progress Notes * Annette Walker MSW - 12/10/2024 2:37 PM EDT 12/10/24 143 Senior Windows Engineer Assessment Referred By [facility] Natural Fabricator Assignment Breast cancer Referral Location: Med Onc Reason for Referral Financial Identified Needs Adjustment to illness;Financial issues;Education/Information;Housing Social Work Interventions Brief Couseling/Support;Education/Information;Financial/Efren COTTON TIER spoke with Patient regarding financial assistance from [employer]. The organization will be paying Patient's security deposit+two months of rent. Aminata from [employer] requested that Pt contact her as the organization could potentially assist with additional rent assistance when current assistance runs out. Patient grateful and provided contact information. C[employer]TON [employer] following and available toprovide additional support as needed. Patient optimistic as she moved last week and is coming in [facility] today for follow up appointment. * Annette Walker MSW - 12/10/2024 2:37 PM EDT 12/10/24 1435 Senior Windows Engineer Assessment Referred By [facility] Natural Fabricator Assignment Breast cancer Referral Location: Med Onc Reason for Referral Financial Identified Needs Adjustment to illness;Financial issues;Education/Information Social Work Interventions Brief Couseling/Support;Education/Information;Financial/Efren documented in this encounter Plan of Treatment Upcoming Encounters Date Type Department Care Team (Late st Contact Info) Description 02/02/2025 11:20 AM EDT Telemedicine [facility] [address] [place] [id number] Samm Ledesma, HYDROTREATER OPERATOR [address] [facility] [facility] [address] [place] [address] 02/04/2025 11:00 AM EDT Appointment [facility] Women's Wellness [facility] [place] [address] Tacho Echavarria MD 1 [place] [address] Naya García PA-C [address] [place] [address] [address] [place] [address] 02/04/2025 2:00 PM EDT Appointment [facility] [place] [address] Tacho Echavarria MD [address] [place] [address] 02/04/2025 2:20 PM EDT Appointment [facility] [place] [address] Tacho Echavarria MD [address] [place] [address] 02/10/2025 10:30 AM EDT Office Visit [address] [facility] [address] [place] [address] Sin Tran MD [address] [place] [address] 03/02/2025 11:40 AM EDT Office Visit [facility] [address] [place] [address] [place] [address] [place] [address] 03/02/2025 12:45 PM EDT Procedure visit [facility] [address] [facility] [address] [place] [address] Samm Ledesma, LEYLA [address] [facility] [address] [place] [address] 04/29/2025 9:15 AM EDT Appointment [facility] RAD ONC [place], [place] [phone] Batool Celis MD [address] [place] [address] [facility] [place], [place] [phone] documented as of this encounter Goals Goal Patient Goal Type Associated Problems Recent Progress Patient-Stated? Author Blood Pressure < 140/90 Blood Pressure 129/95(01/15 2:00 PM EDT) No Chetna Cedeno MD Breast [facility] On track(2024 12:01 PM EST) No Jasmin Porter, RAUL Note: Patient acknowledges understanding of new diagnosis, plan of care, available resources and how to contact Nurse Navigator with any future questions or concerns. [facility] Jasmin Rodriguez, RAUL Note: Patient will be [...] documented as of this encounter Care Teams Psychiatric Orderly Relationship Specialty [place] [address] [place] [address] PCP - General 06/21/10 Arlyn Schmidt MD [address] [place] [address] Consulting Physician Internal Medicine-Endocrinology , Diabetes & Metabolism 11/28/20 Tacho Echavarria MD 1 [place] [address] Internal Medicine-Medical Oncology 11/12/23 Matt Ulrich MD 1 [place] [address] Surgery-Surgical Oncology 12/04/23 Eze Brock Pastoral Care 12/13/23 Cheryl Nair, RN Oncology Nurse Navigator 03/25/2412/13 Annette Walker, ARACELI Natural Fabricator 05/13/24 Batool Celis MD 1 [facility] [place] [address] Radiation Oncologist Radiology-Radiation Oncology 06/08/24 documented as of this encounter
--- OUTSIDE RECORDS SUMMARY | 2025-01-31 16:03 | XMS_ITS | Encounter Summary ---
Author Organization [place] [address] Care Team Providers Care Doughnut Machine Operator Helper Name Role Phone Chetna Cedeno MD Primary Care Provider [phone] Arlyn Schmidt MD Unavailable [phone] Tacho Echavarria MD Unavailable [phone] Matt Ulrich MD Unavailable [phone] Eze Brock Unavailable Cheryl Nair RN Unavailable [phone] Annette Walker PRESIDENT + PUBLISHER Unavailable [phone] Batool Celis MD Unavailable [phone] Reason for Visit * Reason Comments Pharmacy Oncology Management Abemaciclib Encounter Details Date Type Department Care Team (Latest Contact Info) Description 12/01/2024 Specialty Pharmacy [facility] [address] [place] [address] Annette Renee CPhT Pharmacy Oncology Management (Abemaciclib) Social History [...] from your doctor or pharmacy? Never 11/07/2023 [facility] Utilities Answer Date Recorded In [...] Date Recorded PHQ-2 Total Score 5 07/07/2024 [facility] of Occupat ional Health - Occupational [...] any time in the past 12 m [facility], were you homeless or living in a retirement (including now)? No 11/07/2023 [facility] IP Transportation Answer D ate [...] in this encounter Progress Notes * Annette Renee CPhT - 12/01/2024 11:41 AM EDT [facility] Specialty Pharmacy Refill Request Prescription for Abemaciclib is out of refills. Will send a request to the provider and contact patient to coordinate refill once response is received. * Medhat Stover RPH - 12/01/2024 11:41 AM EDT [facility] Prescription refill received for Verzenio (50mg). Prescription does not need prior authorization. Scheduled for refilled coordination. Medhat Stover PharmD, E Specialty Pharmacist * Annette Renee CPhT - 12/01/2024 11:41 AM EDT Specialty Pharmacy Refill Coordination Note Contacted [facility] today regarding refills of Abemaciclib. Copay amount: $0.00 No answer, unable to leave voicemail. mailbox not set up Patient informed of copay. * Annette Renee CPhT - 12/01/2024 11:41 AM EDT Specialty Pharmacy Refill Coordination Note Contacted [facility] today regarding refills of Abemaciclib. Medication to be delivered by [facility] on 12/04. Copay amount: $0.00 Spoke with patient. Patient informed of copay. * Chetna Rodriguez [facility] - 12/01/2024 11:41 AM EDT [facility] - Care Plan and Refill Review Refill questions and refill history verified. Last assessment 11/04/24. No reassessment needed at this time. Chetna Rodriguez [facility] Specialty Pharmacist * Hilary Rivas [facility] - 12/01/2024 11:41 AM EDT [facility] Medication changes noted, no additional follow up needed at this time. Aisha Rivas, PharmD, BCPS, BCOP Oncology Pharmacist 12/03/2024 12:27 PM documented in this encounter Plan of Treatment Upcoming Encounters Date Type Department Care Team (Late st Contact Info) Description 02/02/2025 11:20 AM EDT Telemedicine [facility] [address] [facility] [address] [place] [address] Samm Ledesma, DOUGH RAISER [address] [facility] [address] [place] [address] 02/04/2025 11:00 AM EDT Appointment [facility] Women's Wellness [facility] [place] [address] Tacho Echavarria MD 1 [place] [address] Naya García PA-C [address] [place] [address] [address] [place] [address] 02/04/2025 2:00 PM EDT Appointment [facility] [place], [place] [phone] Tacho Echavarria MD 1 [place] [address] 02/04/2025 2:20 PM EDT Appointment [facility] Care Medical Oncology [place], [place] [phone] Tacho Echavarria MD [address] [place] [id number] 02/10/2025 10:30 AM EDT Office Visit [facility] [address] [facility] [address] [place] [address] Sin Tran MD [address]00 [place] [address] 03/02/2025 11:40 AM EDT Office Visit [facility] [place] [address] [place] [address] [place] [address] [place] [address] 03/02/2025 12:45 PM EDT Procedure visit [facility] [address] [facility] [address] [place] [address] Samm Ledesma, DOUGH RAISER [address] [facility] [address] [place] [address] 04/29/2025 9:15 AM EDT Appointment [place] [address] Batool Celis MD [address] [place] [address] documented as of this encounter Goals Goal Patient Goal Type Associated Problems Recent Progress Patient-Stated? Author Blood Pressure < 140/90 Blood Pressure 129/95(01/15 2:00 PM EDT) No Chetna Cedeon MD Breast Health [facility] On track(2024 [...] documented as of this encounter Care Teams Doughnut Machine Operator Helper Relationship Specialty [place] [address] [place] [address] PCP - General 06/21/10 Arlyn Schmidt MD [address] [place] [address] Consulting Physician Internal Medicine-Endocrinology , Diabetes & Metabolism 11/28/20 Tacho Echavarria MD 1 [place] [address] Internal Medicine-Medical Oncology 11/12/23 Matt Ulrich MD 1 [place] [address] Surgery-Surgical Oncology 12/04/23 Eze Brock Pastoral Care 12/13/23 Cheryl Nair, RN Oncology Nurse Navigator 03/25/2412/13 Annette Walker, ARACELI Apn 05/13/24 Batool Celis MD 1 [facility] [address] Radiation Oncologist Radiology-Radiation Oncology 06/08/24 documented as of this encounter
--- OUTSIDE RECORDS SUMMARY | 2025-01-31 16:04 | XMS_ITS | Encounter Summary ---
Author Organization [place] [address] Care Team Providers Care List Of First Job Ideas Name Role Phone Chetna Cedeno MD Primary Care Provider [phone] Arlyn Schmidt MD Unavailable [phone] Tacho Echavarria MD Unavailable [phone] Matt Ulrich MD Unavailable [phone] Eze Brock Unavailable Shilpa Cline RN Unavailable [phone] Cheryl Nair RN Unavailable [phone] Ophelia Lala RN Unavailable Glo Lee RN Unavailable Unavailab Sanam Evans PITCHING COACH Unavailable Unavailable Hilary Clemens RN Unavailable Unavaila Ruthy Clayton RN Unavailable Unavailable Rayna Partida RN Unavailable Unavailab Artur Nelson RN Unavailable Unavailable Annette Walker PITCHING COACH Unavailable [phone] Emmie Crain RN Unavailable Unavailable Brigida Enriquez RN Unavailable Unavailable Fidel Rainey RN Unavailable Unavailable Batool Celis MD Unavailable [phone] Encounter Details Date Type Department Care Team (Late st Contact Info) Description 03/18/2024 Lab Requisition [facility] [place] [address] Provider, Unknown Malignant neoplasm of unspecified site of right female breast (HCC) Social History Tobacco Use Types Packs/Day Years [...] from your doctor or pharmacy? Never 11/07/2023 Social Connection and Isolation Panel [NHANES] A nswer Date Recorded In a typical week, how many times do you talk on the phone with family, friends, or neighbors? Once a week 11/07/19 How often do you get togethe r with friends or relatives? Once a week 11/07/2023 How often do you attend chur ch or gnosticism services? 1 to 4 times per year [...] like food, housing, medical care, and heating? Somewhat hard 11/07/2023 PHQ-2 Answer Date Recorded PHQ-2 Total Score 0 11/07/2023 [facility] - Occupational Stress Questionnaire Answer Date Recorded Do you feel stress - tense, restless, nervous, or anxious, or unable to sleep at night because your mind is troubled all the time - these days? Rather much 11/07/2023 Hunger Vital Sign Answer Date Recorded Within the past 12 months, y ou worried that your food would run out before you got the money to buy more. Never true 11/07/19 24 Within the past 12 months, t he food you bought just didn't last and you didn't have money to get more. Never true 11/07/2023 PRAPARE - Transportation Answer Date Re corded [...] in a assisted (including now)? No 11/07/2023 Education Answer Date Recorded What is the [...] HECTOR [address] [facility] [address] [place], [place] [id number] Samm Ledesma, PLASTIC SHEETS SUPERVISOR [address] [place], [place] [id number] 02/04/2025 11:00 AM EDT Appointment [facility] Women's Wellness [facility] [place] [address] Tacho Echavarria MD [address] [place] [address] Naya García PA-C [address] [place] [address] [address] [place] [address] 02/04/2025 2:00 PM EDT Appointment [place] [address] Tacho Echavarria MD [address] [place] [address] 02/04/2025 2:20 PM EDT Appointment [facility] [place], [place] [phone] Tacho Echavarria MD [address] [place] [address] 02/10/2025 10:30 AM EDT Office Visit [facility] [address] [facility] [address] [place] [address] Sin Tran MD [address] [place] [address] 03/02/2025 11:40 AM EDT [place] [facility] [address] [place] [address] [place] [address] [place] [address] 03/02/2025 12:45 PM EDT Procedure visit [facility] [address] [place] [address] Samm Ledesma, PLASTIC SHEETS SUPERVISOR [address] [place] [address] 04/29/2025 9:15 AM EDT Appointment [facility] RAD ONC [place], [place] [phone] Batool Celis MD [address] [place] [address] [facility] [place], [place] [id number] documented as of this encounter Goals Goal [...] Navigator with any future questions or concerns. Maintain a healthy diet, exercise regularly and maintain an ideal body weight General No Sanam Julio MA documented as of this encounter Procedures Procedure Name Priority Date/Time Associated Diagnosis Comments MISC AP TEST Routine 03/18/2024 1:27 PM EDT Malignant neoplasm of unspecified site of right female breast (HCC) documented in this encounter Results * MISC AP TEST (03/18/2024 1:27 PM EDT) CASE REPORT Surgical Pathology Report Case: [id number] Authorizing Provider: Provider, Unknown Collected: 03/18/2024 1327 Ordering Location: [facility] Received: 03/18/2024 1327 Pathologist: Diane Ellis MD Specimen: Breast, Right, Request for case [id number] slides to [facility]. 05/04/2024 1:26 PM EDT [facility] FINAL DIAGNOSIS Results will be scanned in this case as an addendum. 05/04/2024 1:26 PM EDT [facility] at 1329 EDT EMBEDDED IMAGES 05/04/2024 1:26 PM EDT [facility] ADDENDUM Refer to Scanned [facility] Surgical Pathology Report. 05/04/2024 1:26 PM EDT [facility] Addendum electronically signed by Diane Ellis MD on 05/04/2024 at 1326 EDT Tissue RIGHT BREAST STRUCTURE / Unknown 03/18/2024 1:27 PM EDT 03/18/2024 1:27 PM EDT us Unknown Provider PATHOLOGY ORDERABLES Edited Res ult - Final [facility] 1 [place] [address] documented in this encounter Visit Diagnoses Diagnosis Malignant neoplasm of unspecified site of right female breast (HCC) documented in this encounter Additional Health Concerns Infection Onset Date Last Indicated Resolved Time COVID-19 09/04/2024 09/04/2024 09/24/2024 10:1 2 PM EDT Assessment Noted Time PHQ-9 Depression Total Score: 12 024 12:00 PM EDT documented as of this encounter Care Teams List Of First Job Ideas Relationship Specialty [place] [address] [place] [address] PCP - General 06/21/10 Arlyn Schmidt MD [address] [place] [address] Consulting Physician Internal Medicine-Endocrinolog y, Diabetes & Metabolism 11/28/20 Tacho Echavarria MD 1 [place], [place] [id number] Internal Medicine-Medical Oncology 11/12/23 Matt Ulrich MD 1 [place] [address] Surgery-Surgical Oncology 12/04/23 Eze Brock Pastoral Care 12/13/23 Shilpa Cline, RN Oncology Nurse Navigator 02/04/2403/09 Cheryl Nair, RN Oncology Nurse Navigator 03/25/2412/13 Ophelia Lala, RN Registered Nurse Infusion Therapy 03/27/24 03/27/24 Glo Lee, RN Registered Nurse Infusion Therapy 04/03/24 04/03/24 Sanam Murray, PITCHING COACH Environmental Science Technician 04/10/24 07/30/24 Hilary Clemens, RN Registered Nurse Infusion Therapy 04/21/24 04/21/24 Ruthy Walker RN Registered Nurse Infusion Therapy 04/24/24 04/24/24 Rayna Partida, RN Registered Nurse Infusion Clinic 05/01/24 05/01/24 Artur Roberts RN Registered Nurse Infusion Therapy 05/07/24 05/07/24 Annette Walker, PITCHING COACH Environmental Science Technician 05/13/24 Emmie Crain, RAUL Registered Nurse Infusion Therapy 05/14/24 05/14/24 Brigida Enriquez, RN Registered Nurse Infusion Clinic 05/21/24 05/21/24 Fidel Rainey, RAUL Registered Nurse Infusion Therapy 05/28/24 05/28/24 Batool Celis MD 1 [facility] [place] [address] Radiation Oncologist Radiology-Radiation Oncology 06/08/24 documented as of this encounter
--- OUTSIDE RECORDS SUMMARY | 2025-01-31 16:04 | XMS_ITS | Encounter Summary ---
Author Organization [place] [address] Care Team Providers Care Process Safety Engineer Name Role Phone Kit Cedeno MD Primary Care Provider [phone] Arlyn Schmidt MD Unavailable [phone] Cheryl Nair RN Unavailable [phone] Tacho Echavarria MD Unavailable [phone] Matt Ulrich MD Unavailable [phone] Hilary Clemens RN Unavailable Unavaila Eze Caro Unavailable Shila Albrecht RN Unavailable Unavail able Cheyanne To RN Unavailable Unavailabl Rayna Wong RN Unavailable Unavailab Shilpa Olivarez RN Unavailable [phone] Tulio Duong RN Unavailable Unavailable Yaquelin Weaver RN Unavailable Unavailable Pam Wang RN Unavailable Unavailable Jazmín Nair RN Unavailable Unavailable Fidel Rainey RN Unavailable Unavailable Cheryl Nair RN Unavailable [phone] Ophelia Lala RN Unavailable Glo Lee RN Unavailable Unavailab Sanam Evans TOOL AND DIE MAKER APPRENTICE Unavailable Unavailable Hilary Clemens RN Unavailable Unavaila Ruthy Clayton RN Unavailable Unavailable Rayna Partida RN Unavailable Unavailab Artur Nelson RN Unavailable Unavailable Annette Walker TOOL AND DIE MAKER APPRENTICE Unavailable [phone] Emmie Crain RN Unavailable Unavailable Brigida Enriquez RN Unavailable Unavailable Fidel Rainey RN Unavailable Unavailable Batool Celis MD Unavailable [phone] Encounter Details Date Type Department Care Team (Late st Contact Info) Description 10/25/2023 Orders Only [facility] [place] [address] Diane Ellis MD 1 [place] [address] Social History Tobacco Use Types Packs/Day Years Used Date Smoking Tobacco: Never Smokeless Tobacco: Never Alcohol Use Standard Drinks/Week Comments Not Currently 0 (1 standard drink = 0.6 oz pur e alcohol) Overall Financial Resource Strain (CARDIA) Answe r Date Recorded Difficulty of Paying Living Expenses Somewhat aguilar rd 05/27/2019 PHQ-2 Answer Date Recorded PHQ-2 Total Score 0 12/06/2022 Hunger Vital Sign Answer Date Recorded Worried About Running Out of Food in the Last Ye ar Never true 05/27/2019 Ran Out of Food in the Last Year Never true 05/27/2019 PRAPARE - Transportation Answer Date Re corded Lack of Transportation (Medical) No 03/12/2019 Lack of Transportation (Non-Medical) No 03/12/2019 Education Answer Date Recorded What is the [...] No 12/06/2022 2:08 PM EDT Macarena Marion, CCMA * Is the person blind or [...] AM EDT Telemedicine [facility] [address] [facility] [address] [place], [place] [id number] Samm Ledesma, TELEVISION REPORTER [address] [place], [place] [phone] 02/04/2025 11:00 AM EDT Appointment [facility] Women's Wellness [facility] [place] [id number] Tacho Echavarria MD [address] [place], [place] [address] Naya García PA-C [address] [place] [address] 02/04/2025 2:00 PM EDT Appointment [place] [address] Tacho Echavarria MD [address] [place] [address] 02/04/2025 2:20 PM EDT Appointment [facility] [place], [place] [phone] Tacho Echavarria MD [address] [place] [id number] 02/10/2025 10:30 AM EDT Office Visit [facility] [address] [facility] [address] [place] [address] Sin Tran MD [address]00 [place] [address] 03/02/2025 11:40 AM EDT Office Visit [facility] [address] [place] [address] [place] [address] [place] [address] 03/02/2025 12:45 PM EDT Procedure visit [facility] [address] [place] [address] Samm Ledesma, TELEVISION REPORTER [address] [place] [address] 04/29/2025 9:15 AM EDT Appointment [facility] RAD ONC [place], [place] [phone] Batool Celis MD [address] [place] [address] CANCER CARE [place], [place] [phone] documented as of this encounter Goals Goal Patient Goal Type Associated Problems Recent Progress Patient-Stated? Author Blood Pressure < 140/90 Blood Pressure 129/95(2024 2:00 PM EDT) No Kit Cedeno MD Maintain a healthy diet, exercise regularly and maintain an ideal body weight General No Sanam Julio MA documented as of this encounter Procedures Procedure Name Priority Date/Time Associated Diagnosis Comments NEOGENOMICS HER2 BREAST Routine 10/25/2023 10:44 AM EDT documented in this encounter Results * NEOGENOMICS HER2 BREAST (10/25/2023 10:44 AM EDT) 10/25/2023 10:4 4 AM EDT Narrative [facility] - 11/06/2023 7:12 PM EDT Requesting Provider: KIT Womack Specimen = [id number] us Diane Ellis MD PATHOLOGY ORDERABLES Final Resul t [facility] 1 [place] [address] documented in this encounter Visit Diagnoses Not on filedocumented in this encounter Additional Health Concerns Infection Onset Date Last Indicated Resolved Time COVID-19 09/04/2024 09/04/2024 09/24/2024 10:1 2 PM EDT documented as of this encounter Care Teams Process Safety Engineer Relationship Specialty [place] [address] [place] [id number] PCP - General 06/21/10 Arlyn Schmidt MD [address] [place] [address] Consulting Physician Internal Medicine-Endocrinolog y, Diabetes & Metabolism 11/28/20 Cheryl Nair, RN Oncology Nurse Navigator 10/29/2302/05 Tacho Echavarria MD [address] [place] [address] Internal Medicine-Medical Oncology 11/12/23 Matt Ulrich MD [address] [place] [address] Surgery-Surgical Oncology 12/04/23 Hilary Clemens, RN Registered Nurse Infusion Therapy 12/05/23 12/05/23 Eze Brock Pastoral Care 12/13/23 Shila Albrecht, RN Registered Nurse Infusion Therapy 12/19/23 12/19/23 Cheyanne To, RN Registered Nurse Infusion Therapy 01/16/24 01/16/24 Rayna Partida, RN Registered Nurse Infusion Clinic 01/23/24 01/23/24 Shilpa Cline, RN Oncology Nurse Navigator 02/04/2403/09 Tulio Duong, RN Registered Nurse Infusion Therapy 02/06/24 02/06/24 Yaquelin Weaver, RN Registered Nurse 02/13/24 02/13/24 Pam Wang RN Registered Nurse Infusion Therapy 02/20/24 02/20/24 Jazmín Nair, RN Registered Nurse Infusion Therapy 02/27/24 02/27/24 Fidel Rainey, RN Registered Nurse Infusion Therapy 03/05/24 03/05/24 Cheryl Nair RN Oncology Nurse Navigator 03/25/2412/13 Ophelia Lala, RAUL Registered Nurse Infusion Therapy 03/27/24 03/27/24 Glo Lee, RN Registered Nurse Infusion Therapy 04/03/24 04/03/24 Sanam Murray, TOOL AND DIE MAKER APPRENTICE Credit Review Analyst 04/10/24 07/30/24 Hilary Clemens, RN Registered Nurse Infusion Therapy 04/21/24 04/21/24 Ruthy Walker RN Registered Nurse Infusion Therapy 04/24/24 04/24/24 Rayna Partida, RN Registered Nurse Infusion Clinic 05/01/24 05/01/24 Artur Roberts RN Registered Nurse Infusion Therapy 05/07/24 05/07/24 Annette Walker, [facility] Credit Review Analyst 05/13/24 Emmie Crain, RN Registered Nurse Infusion Therapy 05/14/24 05/14/24 Brigida Enriquez, RN Registered Nurse Infusion Clinic 05/21/24 05/21/24 Fidel Rainey, RN Registered Nurse Infusion Therapy 05/28/24 05/28/24 Batool Celis MD 1 [facility] [place] [address] Radiation Oncologist Radiology-Radiation Oncology 06/08/24 documented as of this encounter
--- OUTSIDE RECORDS SUMMARY | 2025-01-31 16:04 | XMS_ITS | Encounter Summary ---
Author Organization [place] [address] Care Team Providers Care Director Dermatology Name Role Phone Kit Cedeno MD Primary Care Provider [phone] Arlyn Schmidt MD Unavailable [phone] Cheryl Nair RN Unavailable [phone] Tacho Echavarria MD Unavailable [phone] Matt Ulrich MD Unavailable [phone] Hilary Clemens RN Unavailable Unavaila Eze Caro Unavailable Shila Albrecht RN Unavailable Unavail able Cheyanne To RN Unavailable Unavailabl Rayna Wong RN Unavailable Unavailab Shilpa Olivarez RN Unavailable [phone] Tulio Duong RN Unavailable Unavailable Yaquelin Weaver RN Unavailable Unavailable Pam Wang RN Unavailable Unavailable Jazmín Nair RN Unavailable Unavailable Fidel Rainey RN Unavailable Unavailable Cheryl Nair RN Unavailable [phone] Ophelia Lala RN Unavailable Glo Lee RN Unavailable Unavailab Sanam Evans BENCH MACHINE OPERATOR Unavailable Unavailable Hilary Clemens RN Unavailable Unavaila Ruthy Clayton RN Unavailable Unavailable Rayna Partida RN Unavailable Unavailab Artur Nelson RN Unavailable Unavailable Annette Wakler BENCH MACHINE OPERATOR Unavailable [phone] Emmie Crain RN Unavailable Unavailable Brigida Enriquez RN Unavailable Unavailable Fidel Rainey RN Unavailable Unavailable Batool Celis MD Unavailable [phone] Encounter Details Date Type Department Care Team (Late st Contact Info) Description 10/25/2023 Orders Only [facility] [address] [facility] [address] Diane Ellis MD 1 [place] [address] Social History Tobacco Use Types [...] [facility] [address] [place], [place] [id number] Samm Ledesma, SUPERVISOR PHOTOENGRAVING [address] [place], [place] [id number] 02/04/2025 11:00 AM EDT Appointment [facility] Women's Wellness [facility] [place] [phone] Tacho Echavarria MD [address] [place], [place] [address] Naya García PA-C [address] [place] [address] 02/04/2025 2:00 PM EDT Appointment [place] [address] Tacho Echavarria MD [address] [place] [address] 02/04/2025 2:20 PM EDT Appointment [facility] [place], [place] [phone] Tacho Echavarria MD [address] [place] [id number] 02/10/2025 10:30 AM EDT Office Visit [facility] [address] [facility] [address] [place] [address] Sin Tran MD [address] [place] [address] 03/02/2025 11:40 AM EDT Office Visit [facility] [address] [place] [address] [place] [address] [place] [address] 03/02/2025 12:45 PM EDT Procedure visit [facility] [address] [place] [address] Samm Ledesma, SUPERVISOR PHOTOENGRAVING [address] [place] [address] 04/29/2025 9:15 AM EDT Appointment [facility] RAD ONC [place], [place] [phone] Batool Celis MD [address] [place] [address] [facility]ER C[address] [place], [place] [phone] documented as of this encounter Goals Goal [...] Comments NEOGENOMICS BREAST PANEL (3 STAIN) Routine 10/25/2023 10:44 AM EDT documented in this encounter Results * NEOGENOMICS BREAST PANEL (3 STAIN) (10/25/2023 10:44 AM EDT) 10/25/2023 10:4 4 AM EDT Narrative [facility] - 11/01/2023 3:02 PM EDT Requesting Provider: KIT Womack Specimen = [id number] us Diane Ellis MD PATHOLOGY ORDERABLES Final Resul t [facility] 1 [place] [id number] documented in this encounter Visit Diagnoses Not on filedocumented in this encounter Additional Health Concerns Infection Onset Date Last Indicated Resolved Time COVID-19 09/04/2024 09/04/2024 09/24/2024 10:1 2 PM EDT documented as of this encounter Care Teams Director Dermatology Relationship Specialty [place] [address] [place] [address] PCP - General 06/21/10 Arlyn Schmidt MD [facility] [place] [address] Consulting Physician Internal Medicine-Endocrinolog y, Diabetes & Metabolism 11/28/20 Cheryl Nair, RN Oncology Nurse Navigator 10/29/2302/05 Tacho Echavarria MD [address] [place] [address] Internal Medicine-Medical Oncology 11/12/23 Matt Ulrich MD [address] [place] [address] Surgery-Surgical Oncology 12/04/23 Hilary Clemens, RN Registered [...] Nurse Infusion Therapy 03/05/24 03/05/24 Cheryl Nair, RAUL Oncology Nurse Navigator 03/25/2412/13 Ophelia Lala, RAUL Registered Nurse Infusion Therapy 03/27/24 03/27/24 Glo Lee, RN Registered Nurse Infusion Therapy 04/03/24 04/03/24 Sanam Murray, BENCH MACHINE OPERATOR Right Of Way Supervisor 04/10/24 07/30/24 Hilary Clemens, RN Registered Nurse Infusion Therapy 04/21/24 04/21/24 Ruthy Walker RN Registered Nurse Infusion Therapy 04/24/24 04/24/24 Rayna Partida, RN Registered Nurse Infusion Clinic 05/01/24 05/01/24 Artur Roberts RN Registered Nurse Infusion Therapy 05/07/24 05/07/24 Annette Walker, BENCH MACHINE OPERATOR Right Of Way Supervisor 05/13/24 Emmie Crain, RN Registered Nurse Infusion Therapy 05/14/24 05/14/24 Brigida Enriquez, RN Registered Nurse Infusion Clinic 05/21/24 05/21/24 Fidel Rainey, RAUL Registered Nurse Infusion Therapy 05/28/24 05/28/24 Batool Celis MD [address] [place] [address] [place] [address] Radiation Oncologist Radiology-Radiation Oncology 06/08/24 documented as of this encounter
--- OUTSIDE RECORDS SUMMARY | 2025-01-31 16:04 | XMS_ITS | Encounter Summary ---
Author Organization [place] [address] Care Team Providers Care Classics Teacher Name Role Phone Kit Cedeno MD Primary Care Provider [phone] Arlyn Schmidt MD Unavailable [phone] Cheryl Nair RN Unavailable [phone] Tacho Echavarria MD Unavailable [phone] Matt Ulrich MD Unavailable [phone] Hilary Clemens RN Unavailable Unavaila Eze Caro Unavailable Shila Albrecht RN Unavailable Unavail able Cheyanne To RN Unavailable Unavailabl Rayna Wong RN Unavailable Unavailab Shilpa Olivarez RN Unavailable [phone] Tulio Duong RN Unavailable Unavailable Yaquelin Weaver RN Unavailable Unavailable Pam Wang RN Unavailable Unavailable Jazmín Nair RN Unavailable Unavailable Fidel Rainey RN Unavailable Unavailable Cheryl Nair RN Unavailable [phone] Ophelia Lala RN Unavailable Glo Lee RN Unavailable Unavailab Sanam Evans CLOTHING CUTTER Unavailable Unavailable Hilary Clemens RN Unavailable Unavaila Ruthy Clayton RN Unavailable Unavailable Rayna Partida RN Unavailable Unavailab Artur Nelson RN Unavailable Unavailable Annette Walker CLOTHING CUTTER Unavailable [phone] Emmie Crain RN Unavailable Unavailable Brigida Enriquez RN Unavailable Unavailable Fidel Rainey RN Unavailable Unavailable Batool Celis MD Unavailable [phone] Encounter Details Date Type Department Care Team (Late st Contact Info) Description 10/25/2023 Orders Only [facility] [place] [address] Diane Ellis MD 1 [place] [address] Social History Tobacco Use Types [...] HECTOR [address] [facility] [address] [place], [place] [id number] Samm Ledesma, C D REACTOR OPERATOR [address] [facility] [address] [place], [place] [id number] 02/04/2025 11:00 AM EDT Appointment [facility] Women's Wellness [place] [id number] Tacho Echavarria MD [address] [place], [place] [address] Naya García PA-C [address] [place] [address] 02/04/2025 2:00 PM EDT Appointment [place] [address] Tacho Echavarria MD [address] [place] [address] 02/04/2025 2:20 PM EDT Appointment [facility] Oncology [place], [place] [phone] Tacho Echavarria MD [address] [place] [address] [id number] 02/10/2025 10:30 AM EDT Office Visit [facility] [address] [facility] [address] [place] [address] Sin Tran MD [address]00 [place] [address] 03/02/2025 11:40 AM EDT Office Visit [facility] [place] [address] [place] [address] [place] [address] [place] [address] 03/02/2025 12:45 PM EDT Procedure visit [facility] [address] [facility] [address] [place] [address] Smam Ledesma, C D REACTOR OPERATOR [address] [facility] [address] [place] [address] 04/29/2025 9:15 AM EDT Appointment [facility] RAD ONC [place], [place] [phone] Batool Celis MD [address] [place] [address] CANCER CARE [place], [place] [id number] documented as of this encounter Goals Goal [...] EDT) 10/25/2023 10:4 4 AM EDT Narrative [facility] - 11/11/2023 2:42 PM EDT Requesting Provider: KIT Womack Specimen = [id number] us Diane Ellis MD PATHOLOGY ORDERABLES Final Resul t [facility] 1 [place] [address] documented in this encounter Visit Diagnoses Not on filedocumented in this encounter Additional Health Concerns Infection Onset Date Last Indicated Resolved Time COVID-19 09/04/2024 09/04/2024 09/24/2024 10:1 2 PM EDT documented as of this encounter Care Teams Classics Teacher Relationship Specialty [place] [address] [place] [address] PCP - General 06/21/10 Arlyn Schmidt MD [address] [place] [address] Consulting Physician Internal Medicine-Endocrinolog y, Diabetes & Metabolism 11/28/20 Cheryl Nair, RN Oncology Nurse Navigator 10/29/2302/05 Tacho Echavarria MD 1 [place] [address] Internal Medicine-Medical Oncology 11/12/23 Matt Ulrich MD [address] [place] [address] Surgery-Surgical Oncology 12/04/23 Hilary Clemens, RN [...] Nurse Infusion Therapy 04/03/24 04/03/24 Sanam Murray, [facility] Gathering Machine Feeder 04/10/24 07/30/24 Hilary Clemens, RN Registered Nurse Infusion Therapy 04/21/24 04/21/24 Ruthy Walker RN Registered Nurse Infusion Therapy 04/24/24 04/24/24 Rayna Partida, RN Registered Nurse Infusion Clinic 05/01/24 05/01/24 Artur Roberts, RN Registered Nurse Infusion Therapy 05/07/24 05/07/24 Annette Walker, [facility] Gathering Machine Feeder 05/13/24 Emmie Crain, RN Registered Nurse Infusion Therapy 05/14/24 05/14/24 Brigida Enriquez, RN Registered Nurse Infusion Clinic 05/21/24 05/21/24 Fidel Rainey, RN Registered Nurse Infusion Therapy 05/28/24 05/28/24 Batool Celis MD [address] [place] [address] [place] [address] Radiation Oncologist Radiology-Radiation Oncology 06/08/24 documented as of this encounter
--- OUTSIDE RECORDS SUMMARY | 2025-01-31 16:04 | XMS_ITS | Encounter Summary ---
Author Organization [place] [address] Care Team Providers Care Radiology Therapist Name Role Phone Chetna Cedeno MD Primary Care Provider [phone] Arlyn Schmidt MD Unavailable [phone] Tacho Echavarria MD Unavailable [phone] Matt Ulrich MD Unavailable [phone] Eze rBock Unavailable Cheryl Nair RN Unavailable [phone] Anentte Walker PHD INTERN Unavailable [phone] Batool Celis MD Unavailable [phone] Encounter Details Date Type Department Care Team (Late st Contact Info) Description 10/27/2024 Orders Only [facility] Physical Therapy [place] [address] [facility] [address] [place] [address] Shaunna Workman PT Social History [...] from your doctor or pharmacy? Never 11/07/2023 [facility] Utilities Answer Date Recorded In [...] any clubs o r organizations such as restoration groups, unions, fraternal or athletic groups, or [...] Total Score 5 07/07/2024 [facility] of Occupat ional Health - Occupational Stress [...] in a mcfp (including now)? No 11/07/2023 [facility] IP Transportation Answer D ate Recorded [...] encounter Progress Notes * Provider, Unknown - 10/29/2024 10:30 AM EDT documented in this encounter Plan of Treatment Upcoming Encounters Date Type Department Care Team (Late st Contact Info) Description 02/02/2025 11:20 AM EDT Telemedicine [facility] [address] [facility] [address] [place] [address] Samm Ledesma, ADVERTISING ASSISTANT MANAGER [address] [facility] [address] [place], [place] [id number] 02/04/2025 11:00 AM EDT Appointment [facility] Women's Wellness [facility] [place] [address] Tacho Echavarria MD [address] [place] [address] [phone] Naya García PA-C [address] [place] [address] [address] [place], [place] [phone] 02/04/2025 2:00 PM EDT Appointment [facility] [place], [place] [phone] Tacho Echavarria MD [address] [place] [address] [id number] 02/04/2025 2:20 PM EDT Appointment [facility] On[facility] [place], [place] [phone] Tacho Echavarria MD [address] [place] [address] 02/10/2025 10:30 AM EDT Office Visit [facility] [address] [facility] [address] [place] [address] Sin Tran MD [address] [place] [address] 03/02/2025 11:40 AM EDT Office Visit [facility] [address] [place] [address] [place] [address] [place] [address] 03/02/2025 12:45 PM EDT Procedure visit [facility] [address] [facility] [address] [place], [place] [phone] Samm Ledesma, ADVERTISING ASSISTANT MANAGER [address] [facility] [address] [place], [place] [phone] 04/29/2025 9:15 AM EDT Appointment [facility] [place] [address] Batool Celis MD [address] [place] [address] CANCER CARE [place], [place] [phone] documented as of this encounter Goals Goal [...] or concerns. Breast Health Breast Health No German, Jasmin Shaunna Aparicio, RN Note: Patient will be compliant with [...] documented as of this encounter Care Teams Radiology Therapist Relationship Specialty [place] [address] [place] [address] PCP - General 06/21/10 Arlyn Schmidt MD [address] [place] [address] Consulting Physician Internal Medicine-Endocrinology , Diabetes & Metabolism 11/28/20 Tacho Echavarria MD [address] [place] [address] [phone] Internal Medicine-Medical Oncology 11/12/23 Matt Ulrich MD [address] [place] [address] [phone] Surgery-Surgical Oncology 12/04/23 Eze Brock Pastoral Care 12/13/23 Cheryl Nair, RN Oncology Nurse Navigator 03/25/2412/13 Annette Walker MSW Furniture Sander 05/13/24 Batool Celis MD 1 [facility] [place] [address] Radiation Oncologist Radiology-Radiation Oncology 06/08/24 documented as of this encounter
--- OUTSIDE RECORDS SUMMARY | 2025-01-31 16:04 | XMS_ITS | Referral Summary ---
Author Organization [facility] Address [address] [place] [address] Phone Care Team Providers Care Mobile Sales Assistant Name Role Phone Chetna Cedeno MD Primary Care Provider [phone] Encounters Date Type Department Care Team Description 01/02/2025 4:26 PM EDT - 01/02/2025 7:27 PM EDT Emergency [facility] Emergency Department [address] [place] [address] Dallin Espinoza MD Heat exhaustion, unspecified, initial encounter [T67.5XXA] Discharge Disposition: Home or Self Care from Last 3 Months Allergies Active Allergy Reactions Criticality Noted Date [...] TABS 1 TABLET DAILY 30 0 Active Social History Tobacco Use Types Packs/Day Years [...] 01/02/2025 4:38 PM EDT Plan of Treatment Not on file Procedures Procedure Name Priority Date/Time Associated Diagnosis Comments BAMP (NA,K,CL,CO2,GLU,BUN, CREAT,CA) STAT 01/02/2025 5:13 PM EDT CBC WITH DIFFERENTIAL STAT 01/02/2025 5:13 PM EDT ECG 12-LEAD STAT 01/02/2025 4:37 PM EDT from Last 3 Months Results * (ABNORMAL) BAMP (Na,K,Cl,CO2,Glu,BUN,Creat,Ca) (01/02/2025 5:13 PM EDT) BLD UREA NITROGEN 16 8 - 26 mg/dL [facility] SODIUM 140 135 - 145 mmol/L [facility] POTASSIUM 3.2(L) 3.6 - 5.1 mmol/L [facility] CHLORIDE 107 98 - 111 mmol/L [facility] CO2 20(L) 21 - 31 mmol/L [facility] GLUCOSE, RANDOM 89 70 - 99 mg/dL [facility] CREATININE 1.06 0.60 - 1.20 mg/dL [facility] ANION GAP 13 4 - 16 mmol/L [facility] CALCIUM 9.0 8.5 - 10.4 mg/dL [facility] ESTIMATED GFR 61 >59 mL/min/1.7 3 m2 [facility] [place] Comment: Estimated GFR was calculated using the CKD-EPI cr (2020) equation refit without race. The equation is recommended by the National Kidney Foundation - [place] Society of Nephrology Task Force. Tested at [facility] [address] [place] [address] Whole Blood 01/02/2025 5:13 PM EDT 01/02/2025 5:25 PM EDT us Dallin Espinoza MD LAB BLOOD ORDERABLES Final Result [facility] [address] [place] [address] [address] * (ABNORMAL) CBC w/ Diff (01/02/2025 5:13 PM EDT) WBC 7.1 3.6 - 10.5 THOU/mcL [facility] [place] RBC 3.75(L) 3.80 - 5.20 MIL/mcL [facility] HEMOGLOBIN 11.2(L) 12.0 - 15.2 g/dL [facility] HEMATOCRIT 33.6(L) 36 - 46 % [facility] MCV 89.6 82 - 97 fL [facility] MCH 30.0 27 - 33 pg [facility] [place] MCHC 33.5 32 - 36 g/dL [facility] RDW 16.0 12.3 - 17.0 % [facility] PLATELET 206 140 - 375 THOU/mcL [facility] MPV 6.9(L) 7.0 - 11.5 fL [facility] ABS. NEUTROPHIL 3.60 1.80 - 7.70 THOU/mcL [facility] ABS LYMPHS 3.00 1.00 - 4.00 THOU/mcL [facility] ABS MONOS 0.30 0.20 - 0.90 THOU/mcL [facility] [place] ABS EOS 0.10 0.03 - 0.45 THOU/mcL [facility] [place] ABS BASOS 0.10 0.00 - 0.20 THOU/mcL [facility] [place] SEGS 51 % [facility] LYMPHOCYTES 43 % CHEMISTR Y [place]TH MONOCYTES 4 % [facility] EOSINOPHIL 1 % [facility] BASOPHILS 1 % [facility] [place] Comment:Tested at [facility] [address] [facility] [address] Whole Blood 01/02/2025 5:13 PM EDT 01/02/2025 5:25 PM EDT Dallin Espinoza MD LAB BLOOD ORDERABLES Final Result [facility] [address] [place] [address] [facility] [place] [address] [place] [address] * ECG 12 lead (01/02/2025 4:37 PM [...] QTcF 417 ms TH TRACEMASTER QRS Horizontal [place] -19 deg TH TRACEMASTER QRS AXIS 16 deg TH TRACEMASTER I-40 Horizontal [place] 46 deg TH TRACEMASTER I-40 FRONT AXIS -17 deg TH TRACEMASTER T-40 Horizontal [place] -50 deg TH TRACEMASTER T-40 Front [place] 51 deg TH TRACEMASTER T Horizontal [place] 52 deg TH TRACEMASTER T WAVE AXIS 16 deg TH TRACEMASTER S-T Horizontal [place] 60 deg TH TRACEMASTER S-T Front [place] 24 deg TH TRACEMASTER ECG IMPRESSION - BORDERLINE ECG - TH TRACEMASTER ECG IMPRESSION SR-Sinus rhythm-normal P axis, V-rate 50-99 TH TRACEMASTER ECG IMPRESSION LVHVP-Probable left ventricular hypertrophy-mul tiple LVH criteria TH TRACEMASTER ECGGUID [id number] TH TRACEMASTER 01/02/2025 4:37 PM EDT us Dallin Espinoza MD ECG ORDERABLES Final Resu lt TH TRACEMASTER from Last 3 Months Insurance [facility] MEDICAID Care Teams Mobile Sales Assistant Relationship Specialty Start Date End Date Chetna Cedeno MD [facility] [address] [place] [address] PCP - General Family Medicine 01/02/25
--- OUTSIDE RECORDS SUMMARY | 2025-01-31 16:04 | XMS_ITS | Encounter Summary ---
Author Organization [place] [address] Care Team Providers Care Shampoo Person Name Role Phone Kit Cedeno MD Primary Care Provider [phone] Arlyn Schmidt MD Unavailable [phone] Cheryl Nair RN Unavailable [phone] Tacho Echavarria MD Unavailable [phone] Matt Ulrich MD Unavailable [phone] Hilary Clemens RN Unavailable Unavaila Eze Caro Unavailable Shila Albrecht RN Unavailable Unavail able Cheyanne To RN Unavailable Unavailabl Rayna Wong RN Unavailable Unavailab Shilpa Olivarez RN Unavailable [phone] Tulio Duong RN Unavailable Unavailable Yaquelin Weaver RN Unavailable Unavailable Pam Wang RN Unavailable Unavailable Jazmín Nair RN Unavailable Unavailable Fidel Rainey RN Unavailable Unavailable Cheryl Nair RN Unavailable [phone] Ophelia Lala RN Unavailable Glo Lee RN Unavailable Unavailab Sanam Evans DIGITAL PROJECT COORDINATOR Unavailable Unavailable Hilary Clemens RN Unavailable Unavaila Ruthy Clayton RN Unavailable Unavailable Rayna Partida RN Unavailable Unavailab Artur Nelson RN Unavailable Unavailable Annette Walker DIGITAL PROJECT COORDINATOR Unavailable [phone] Emmie Crain RN Unavailable Unavailable Brigida Enriquez RN Unavailable Unavailable Fidel Rainey RN Unavailable Unavailable Batool Celis MD Unavailable [phone] Encounter Details Date Type Department Care Team (Late st Contact Info) Description 10/25/2023 Orders Only [facility] One [facility] [place] [address] Diane Ellis MD 1 [place] [address] Social History Tobacco Use Types [...] HECTOR [address] [facility] [address] [place], [place] [phone] Samm Ledesma, V/STOL LANDING SIGNAL OFFICER [address] [facility] [address] [place], [place] [phone] 02/04/2025 11:00 AM EDT Appointment [facility] Women's Wellness [facility] [place] [phone] Tacho Echavarria MD [address] [place], [place] [phone] Naya García PA-C [address] [place] [address] 02/04/2025 2:00 PM EDT Appointment [facility] [place] [address] Tacho Echavarria MD [address] [place] [address] 02/04/2025 2:20 PM EDT Appointment [facility] Oncology [place], [place] 9497417 Tacho Echavarria MD [address] [place] [address] [phone] 02/10/2025 10:30 AM EDT Office Visit [facility] [address] [facility] [address] [place] [address] Sin Tran MD [address]00 [place] [address] 03/02/2025 11:40 AM EDT Office Visit [facility] [place] [address] [place] [address] [place] [address] [place] [address] 03/02/2025 12:45 PM EDT Procedure visit [facility] [address] [facility] [address] [place] [address] Samm Ledesma, V/STOL LANDING SIGNAL OFFICER [address] [facility] [facility] [address] [place] [address] 04/29/2025 9:15 AM EDT Appointment [facility] RAD ONC [place], [place] [phone] Batool Celis MD [address] [place] [address] CANCER [facility]ARE [place], [place] [phone] documented as of this encounter Goals Goal [...] EDT) 10/25/2023 10:4 4 AM EDT Narrative [facility] - 11/11/2023 7:42 AM EDT Requesting Provider: KIT Womack Specimen = [id number] us Diane Ellis MD PATHOLOGY ORDERABLES Final Resul t [facility] 1 [place] [phone] documented in this encounter Visit Diagnoses Not on filedocumented in this encounter Additional Health Concerns Infection Onset Date Last Indicated Resolved Time COVID-19 09/04/2024 09/04/2024 09/24/2024 10:1 2 PM EDT documented as of this encounter Care Teams Shampoo Person Relationship Specialty [place] [address] [place] [address] PCP - General 06/21/10 Arlyn Schmidt MD [facility] [place] [address] Consulting Physician Internal Medicine-Endocrinolog y, Diabetes & Metabolism 11/28/20 Cheryl Nair, RN Oncology Nurse Navigator 10/29/2302/05 Tacho Echavarria MD [address] [place] [address] Internal Medicine-Medical Oncology 11/12/23 Matt Ulrich MD [address] [place] [address] Surgery-Surgical Oncology 12/04/23 Hliary Clemens, RN Registered Nurse Infusion Therapy 12/05/23 [...] Nair, RAUL Oncology Nurse Navigator 03/25/2412/13 Ophelia Laal, RAUL Registered Nurse Infusion Therapy 03/27/24 03/27/24 Glo Lee, RN Registered Nurse Infusion Therapy 04/03/24 04/03/24 Sanam Murray, DIGITAL PROJECT COORDINATOR Environmental Conservation Professor 04/10/24 07/30/24 Hilary Clemens, RN Registered Nurse Infusion Therapy 04/21/24 04/21/24 Ruthy Walker RN Registered Nurse Infusion Therapy 04/24/24 04/24/24 Rayna Partida, RN Registered Nurse Infusion Clinic 05/01/24 05/01/24 Artur Roberts RN Registered Nurse Infusion Therapy 05/07/24 05/07/24 Annette Walker, DIGITAL PROJECT COORDINATOR Environmental Conservation Professor 05/13/24 Emmie Crain, RN Registered Nurse Infusion Therapy 05/14/24 05/14/24 Brigida Enriquez, RN Registered Nurse Infusion Clinic 05/21/24 05/21/24 Fidel Rainey, RAUL Registered Nurse Infusion Therapy 05/28/24 05/28/24 Batool Celis MD [address] [place] [address] [place] [address] Radiation Oncologist Radiology-Radiation Oncology 06/08/24 documented as of this encounter
[2025-01-31] MEDS: TRAMADOL 50MG TABLET 50 MG PO (17:11)
[2025-01-31] MEDS: PANTOPRAZOLE 40MG TABLET 40 MG PO (20:53)
[2025-01-31] MEDS: ROPINIROLE HCL 0.25 MG TABLET PO (20:53)
--- NOTE | 2025-02-01 01:50 | PC.NURSE ---
Pt AOx4, pleasant. Received shower earlier on in the shift. C/o some nausea after trying to take PO K+ replacement, administered prn nausea meds and pt reported some relief with no episodes of emesis. Pt receiving IVABx. Denies pain. Currently resting in bed with eyes closed. Respirations even and unlabored. Bed is low, locked, and call light is in reach.
[2025-02-01 04:00] VITALS: BMI 35.1
[2025-02-01] MEDS: POTASSIUM CHLORIDE 20MEQ TAB 40 MEQ PO (05:08)
[2025-02-01] MEDS: PIPERCILLIN/TAZO 3.375 GM in 0.9 % SODIUM CHLORIDE 50 ML IV ×3 (05:08→18:56)
--- NOTE | 2025-02-01 06:00 | CA_ITS ---
APPROVED REPORT EXAM: Comprehensive 2D, Doppler, and color-flow Echocardiogram Certified Solid Waste Facility Operator: Charmaine Shay RVT Ht: 5 ft 2 in Wt: 182lbs BSA: 1.84 BP: 138/53 mmHg Indications: PULMONARY EMBOLI WITH STRAIN SEEN ON CTA 2D Dimensions Left Atrium 2.82 cm F: 2.7 - 3.8 LA Volume 45.90 mL RVID Base (AP4) 2.91 cm (M/F) 2.5-4.1 LA Volume Index 24.95 mL/m2 (M/F) 16-34 LVOT 2.27 cm (M/F) 1.5-2.5 EF AP4 63.70 % GL Strain -23.4 % M-Mode Dimensions RVDd 1.97 cm (0.9-2.6) LVDd 4.47 cm (3.5-5.7) Ao Diam 3.35 cm (2.0-3.7) LVDs 3.22 cm (3.5-5.7) IVSd 1.29 cm (0.6-1.1) PWd 1.06 cm (0.6-1.1) EF (Teich) 54.30% FS 28.00% EDV (Teich) 91.00 mL TAPSE 2.56 (<1.7) ESV (Teich) 41.60 mL LV Diastology E Decel Time 158 (160-240 msec) E/A Ratio 1.1 MED E' 11.6 (>= 7 cm/sec) E'/MED E' Ratio 7.18 (<= 14) LAT E' 9.5 (>= 10 cm/sec) E/LAT E' Ratio 8.77 (<= 14) Aortic Valve LVOT Max 95.0 (70-110 cm/s) KANCHAN Index 1.83 cm2/m2 LVOT VTI 21.04 cm AoV Peak Aidan. 127.0 (50-130 cm/s) AO Peak GR. 6.70 mmHg AO Mean GR. 3.50 (<5 mmHg) AO VTI 25.3 (18-25 cm) KANCHAN (VTI) 3.36 (2.5-4.5 cm2) Mitral Valve MV E Max Aidan. 83.0 (40-130 cm/s) MV A Velocity 74.0 (40-130 cm/s) E/A Ratio 1.13 MV Decel. Time 158 (160-240 ms) Left Ventricle The left ventricle is normal size. The left ventricular systolic function is normal. The left ventricular ejection fraction is within the normal range. There is normal left ventricular wall thickness. There is normal LV segmental wall motion. The left ventricular diastolic function is normal. LVEF is 55%. Right Ventricle Right ventricle is mildly dilated. The right ventricular systolic function is normal. Atria The left atrium size is normal. The right atrium size is normal. There is no Doppler evidence of interatrial shunt. Aortic Valve The aortic valve opens well. There is no aortic valvular stenosis. No aortic regurgitation is present. Mitral Valve The mitral valve is normal in structure. No evidence of mitral valve stenosis. Trace mitral regurgitation. Tricuspid Valve Tricuspid valve is grossly normal in structure and function. Trace tricuspid regurgitation. There is insufficient TR jet to estimate RVSP. Pulmonic Valve The pulmonary valve is normal in structure. Trace pulmonic regurgitation. Great Vessels The aortic root is normal in size. IVC is normal in size and collapses >50% with inspiration. Pericardium There is no pericardial effusion. Other Information Study Quality: Fair Conclusion Normal LV systolic function. Mild RV dilation with normal RV function. No significant valvular stenosis or regurgitation. Electronically signed by : Yamileth Davies MD 02/01/2025 13:32:10
--- NOTE | 2025-02-01 06:00 | CA_ITS ---
FINAL REPORT CLINICAL HISTORY: PE,HX BREAST CA FINDINGS: DUPLEX VENOUS SONOGRAPHY OF THE BILATERAL LOWER EXTREMITIES Multiple transverse and longitudinal scans were performed of the femoropopliteal deep venous systems, with augmentation and compression maneuvers. HISTORY: Pain, PE, history of breast cancer FINDINGS: Normal phasic flow was noted in the visualized deep venous systems. No intraluminal increased echogenicity is noted to suggest thrombus. There is normal compression and augmentation of the venous structures. No abnormal venous collaterals are seen. IMPRESSION: No evidence of deep venous thrombosis of the bilateral lower extremities. Reviewed, Interpreted and Dictated by Amanda Kuhn MD Transcribed by TREV Anne Authenticated and [facility]
[2025-02-01 07:04] LABS: Alanine Aminotransferase 10 U/L (12-78); Albumin Level 3.0 g/dl (3.5-5.0); Albumin/Globulin Ratio 1.6 (1.1-1.8); Alkaline Phosphatase 87 U/L (38-126); Anion Gap 4.9 mEq/L (5-15); Aspartate Amino Transferase 21 U/L (14-36); Bilirubin,Total 0.3 mg/dl (0.2-1.3); Blood Urea Nitrogen 9 mg/dl (7-17); Calcium 9.0 mg/dl (8.4-10.2); Carbon Dioxide 22 mmol/L (22.0-30.0); Chloride 116 mmol/L (98-107); Creatinine Clearance Estimated 110 mL/min (50-200); Creatinine,Serum 0.80 mg/dl (0.52-1.04); Estimated Glomerular Filt Rate 74 ml/min (>60); GFR (African American) 89 ML/MIN (>60); Globulin 1.9 g/dL (1.3-3.2); Glucose 128 mg/dl (74-100); Magnesium 1.5 mg/dl (1.6-2.3); Potassium 3.9 mmoL/L (3.5-5.1); Sodium 139 mmol/L (136-145); Total Protein,Serum 4.9 g/dl (6.3-8.2)
[2025-02-01 07:05] LABS: Hematocrit 24.6 % (37.0-47.0); Hemoglobin 8.2 g/dL (12.2-16.2); Immature Granulocytes % 0.6 %; Mean Corpuscular HGB Conc 33.3 g/dL (31.8-35.4); Mean Corpuscular Hemoglobin 30.7 pg (27.0-31.2); Mean Corpuscular Volume 92.1 fl (81-99); Nucleated Red Blood Cells % 0 %; Platelet Count 128 K/mm3 (142-424); Red Blood Count 2.67 M/mm3 (4.20-5.40); Red Cell Distribution Width-SD 48.9 fL; White Blood Count 4.9 K/mm3 (4.8-10.8)
[2025-02-01 08:00] VITALS: BP 81/52; PULSE 80; RESP 16; TEMP 36.7; O2SAT 99
[2025-02-01] MEDS: LACTATED RINGERS 1000ML 1,000 ML 75 ML IV (08:23)
[2025-02-01] MEDS: OLANZapine 5 MG ODT TABLET SL (08:24)
[2025-02-01] MEDS: DEXAMETHASONE 4MG TABLET 8 MG PO (08:24)
--- NOTE | 2025-02-01 10:48 | P.PN_ITS ---
Subjective *Date: 02/01/25 *Time: 17:06 Interval history: Patient stable on room air. Says she has slight shortness of breath with exertion. Feeling somewhat better. Tolerating p.o. intake. Afebrile. No nausea or vomiting. Kidney function stable. Tolerating anticoagulation Medical Exam Vital signs and Labs for Last 24 Hours: Vital Signs Temp Pulse Resp BP Pulse Ox O2 Del Method 02/01/25 09:00 Room Air 02/01/25 08:00 98.1 F 80 16 81/52 L 99 Room Air 02/01/25 08:00 Room Air 02/01/25 06:39 Room Air 02/01/25 05:00 Room Air 02/01/25 03:00 Room Air 02/01/25 01:00 Room Air 01/31/25 23:00 Room Air 01/31/25 21:00 Room Air 01/31/25 20:00 98.2 F 96 H 14 103/61 L 96 Room Air 01/31/25 20:00 Room Air 01/31/25 18:42 Room Air 01/31/25 17:00 Room Air 01/31/25 16:00 98.2 F 64 16 112/68 96 Room Air 01/31/25 15:00 Room Air 01/31/25 13:00 Room Air 01/31/25 11:00 Room Air Intake and Output 01/31/25 02/01/25 02/01/25 23:59 07:59 15:59 Intake Total 360 / 1080 600 / 840 240 / 840 Output Total 350 / 350 0 / 0 Balance 730 600 / 840 240 / 840 Intake: Intake, Oral Amount 360 / 480 240 / 240 Intake, Total IV Amount 600 / 600 Lactated Ringers 1000ML 1,000 500 / 500 ml @ 75 mls/hr IV .[id number] [facility] Rx#:[id number] Pipercillin/Tazo 3.375 gm In 0. 100 / 100 9 % Sodium Chloride 50 ml @ 100 mls/hr IV Q6H [facility] Rx#:[id number] Output: Output, Urine Amount 350 / 350 0 / 0 Other: Number of Unmeasured Voids 1 0 Weight 89.902 kg Patient Weight 02/01/25 23:59 Weight 89.902 kg Laboratory Results - last 24 hr 02/01/25 06:07: WBC 4.9, RBC 2.67 L, Hgb 8.2 L, Hct 24.6 L, MCV 92.1, MCH 30.7, MCHC 33.3, RDW 14.6, Plt Count 128 L, MPV 9.3, Neut % (Auto) 76.7, Lymph % (Auto) 18.2, [place] % (Auto) 4.3, Eos % (Auto) 0.0 L, Baso % (Auto) 0.2, Neut # (Auto) 3.7, Lymph # (Auto) 0.9, [place] # (Auto) 0.2, Eos # (Auto) 0.0, Baso # (Auto) 0.0, Sodium 139, Potassium 3.9 D, Chloride 116 H, Carbon Dioxide 22, A nion Gap 4.9 L, BUN 9, Creatinine 0.80, Estimated Creat Clear 110, Estimated GFR 74, Est GFR ( Amer) 89 D, Glucose 128 H D, Calcium 9.0, Magnesium 1.5 L, Total Bilirubin 0.3, AST 21, ALT 10 L, Alkaline Phosphatase 87, Total Protein 4.9 L, Albumin 3.0 L D, Globulin 1.9, Albumin/Globulin Ratio 1.6 I & O for Labs for Last 24 Hours: Intake & Output 01/29/25 01/30/25 01/31/25 02/01/25 23:59 23:59 23:59 23:59 Intake Total 480 / 1080 840 / 840 Output Total 350 / 350 0 / 0 Balance 130 / 730 840 / 840 Weight 80.286 kg 84.3 kg 89.902 kg Microbiology Reports for the Last 24 Hours: Microbiology 01/31/25 00:59 Blood Blood Culture - Preliminary NO GROWTH AFTER 24 HOURS 01/31/25 00:58 Blood Blood Culture - Preliminary NO GROWTH AFTER 24 HOURS Constitutional: Present no acute distress, obese, chronically ill appearing and cooperative Head: Present atraumatic and normocephalic ENT: Present normal exam Respiratory: Present normal respiratory effort; Absent rhonchi, wheezes or crackles Cardiac: Present Reg Rate and Rhythm GI: Present soft and normal bowel sounds; Absent distention or tenderness Extremities: Present normal inspection and full ROM Skin: Present intact; Absent erythema Neuro: Present Grossly Intact, alert, awake, oriented x 3 and moves all extremities Assessment and Plan *Assessment and plan (1) Diarrhea: Status: Acute Qualifiers: Diarrhea type: presumed infectious Qualified Code(s): R19.7 - Diarrhea, unspecified Category: Medical Code(s): R19.7 - Diarrhea, unspecified (2) Acute hypokalemia: Status: Acute Category: Medical Code(s): E87.6 - Hypokalemia (3) Intraductal carcinoma of right breast: Status: Acute Category: Medical Code(s): D05.11 - Intraductal carcinoma in situ of right breast (4) Pulmonary embolism: Status: Acute Qualifiers: Acute cor pulmonale presence: with acute cor pulmonale Chronicity: acute Pulmonary embolism type: other Qualified Code(s): I26.09 - Other pulmonary embolism with acute cor pulmonale Category: Medical Code(s): I26.99 - Other pulmonary embolism without acute cor pulmonale (5) Anxiety and depression: Status: Acute Category: Medical Code(s): F41.9 - Anxiety disorder, unspecified; F32.A - Depression, unspecified (6) GERD (gastroesophageal reflux disease): Status: Acute Category: Medical Code(s): K21.9 - Gastro-esophageal reflux disease without esophagitis (7) Hypertension: Status: Acute Category: Medical Code(s): I10 - Essential (primary) hypertension (8) Restless leg syndrome: Status: Acute Category: Medical Code(s): G25.81 - Restless legs syndrome Plan Meri Cole is 59-year-old female with a medical history significant for metastatic intraductal carcinoma stage IIIb of right breast s/p total mastectomy, chemoradiotherapy ([facility] oncology) on maintenance immunotherapy, anxiety/depression, hypertension, GERD who presents with at least 3 weeks of poor p.o. tolerance, nausea and intermittent vomiting, abdominal pain, and watery diarrhea. Patient states oncologist recently changed her maintenance therapy, including dosing, about a month ago after which point she thinks symptoms began. She states she reached out to her oncologist who recommended keeping her appointment this coming . She initially had nausea with vomiting which has improved, but continues to have poor oral tolerance. Endorses 3 weeks of watery diarrhea, denies recent antibiotic use. Denies fever/chills, chest pain, shortness of breath, urinary symptoms. Workup in the ED significant for potassium 2.5, phosphorus 2.2, normal magnesium, CT abdomen showing mild colitis with mild biliary ductal dilatation with prior cholecystectomy, CTA chest showing lingular PE with evidence of RV strain RV/LV ratio of 1.0, and right-sided lung inflammation which patient states is known. Of note, patient recently got a second opinion regarding her breast cancer at [facility] who stated patient will likely have left-sided breast cancer as well. Given severe electrolyte abnormalities, intractable diarrhea, and poor oral tolerance Case discussed with ED provider and decision made to admit patient for the same. Cardiology evaluated today, will transition to DOAC. If remains stable overnight, plan to discharge in the morning #Abdominal pain #Diarrhea #Colitis #Decreased oral tolerance #Hypokalemia #Hypophosphatemia ? Presents with 3 weeks of malaise, weakness, decreased oral tolerance, diarrhea, abdominal pain. Found to have colitis on CT, with severe electrolyte abnormalities. ? This is apparently in the setting of recent changes to her maintenance therapy including Verzenio, exemestane. Patient does not know exact changes that were made. ? Initial potassium 2.5, phosphorus 2.2. Magnesium normal. Replating with IV and oral. ? CT shows mild colitis, patient continues to have watery diarrhea. Diarrhea panel negative for C. difficile. ? Continue IV Zosyn every 6 hours. -Potassium 3.9, magnesium 1.5, replacing per protocol. Kidney function stable with BUN 9, creatinine 0.8, sodium 139. Repeat CBC, CMP, magnesium ordered for the morning -Phosphorus low at 2.2. Will replace with oral K-Phos twice daily -Discontinue IV fluids today. #Metastatic intraductal carcinoma stage IIIb #S/p left total mastectomy, chemoradiotherapy #Lingular pulmonary embolism #RV strain ? Follows with [facility] in [place] oncology. Has a follow-up appointment on , 02/04/2025. ? Finished chemotherapy in May 2024, radiation therapy in September 2024, and total mastectomy in June 2024. ? Apparently has metastatic cancer to surrounding lymph nodes. ? Currently taking Verzenio, exemestane. Hold these until above symptoms subside. ? Continue home dexamethasone 8 mg daily. ? CTA chest shows lingular pulmonary embolism with suggestion of RV strain. Echo obtained showing slight RV strain. Troponin stable however. -Discontinue subcu therapeutic Lovenox, transition to Xarelto 15 mg twice daily for treatment dose. Discussed case with cardiology, recommend Xarelto. Will likely need indefinitely due to underlying malignancy and hypercoagulable state -No indication for thrombectomy -No evidence of DVT per my review of lower extremity Doppler. Vessels colla psible/compressible #Anxiety/depression: Continue home Zyprexa. #Hypertension: Hold home losartan for now. BP soft #GERD: Continue home PPI. #Restless leg syndrome: Continue home Requip 0.25 mg nightly. Full code Xarelto Regular diet
[2025-02-01 12:19] LABS: Phosphorous 2.2 mg/dl (2.5-4.5)
--- NOTE | 2025-02-01 12:59 | EXP.CARD.CON ---
History of Present Illness History of Present Illness Consult date: 02/01/25 Requesting physician: Kevin Falcon Chief complaint: Diarrhea and Malaise History of present illness: Hospitalist note: Meri Cole is 59-year-old female with a medical history significant for metastatic intraductal carcinoma stage IIIb of right breast s/p total mastectomy, chemoradiotherapy ([facility]) on maintenance immunotherapy, anxiety/depression, hypertension, GERD who presents with at least 3 weeks of poor p.o. tolerance, nausea and intermittent vomiting, abdominal pain, and watery diarrhea. Patient states oncologist recently changed her maintenance therapy, including dosing, about a month ago after which point she thinks symptoms began. She states she reached out to her oncologist who recommended keeping her appointment this coming . She initially had nausea with vomiting which has improved, but continues to have poor oral tolerance. Endorses 3 weeks of watery diarrhea, denies recent antibiotic use. Denies fever/chills, chest pain, shortness of breath, urinary symptoms. Workup in the ED significant for potassium 2.5, phosphorus 2.2, normal magnesium, CT abdomen showing mild colitis with mild biliary ductal dilatation with prior cholecystectomy, CTA chest showing lingular PE with evidence of RV strain RV/LV ratio of 1.0, and right-sided lung inflammation which patient states is known. Of note, patient recently got a second opinion regarding her breast cancer at [facility] who stated patient will likely have left-sided breast cancer as well. Given severe electrolyte abnormalities, intractable diarrhea, and poor oral tolerance Case discussed with ED provider and decision made to admit patient for the same. Cardiology note: Cardiology was asked to evaluate for management of OAC for patient. CTA chest 01/30 showed lingular segmental and subsegmental pulmonary emboli with RV/LV ratio of 1 suggesting right ventricular strain, peripheral areas of airspace disease right middle and upper lobe suggesting acute inflammation. Subcentimeter subcutaneous soft tissue nodule lateral right chest wall could represent metastatic deposits. This morning patient is resting comfortably in bed and denies chest pain or shortness of breath. Patient is maintaining an oxygen saturation of 99% on room air. Morning labs reviewed. Hemoglobin 8.2 and a platelet count of 128 noted. Troponin remains negative. Echocardiogram is pending. [facility] Disclaimer: The information contained in this section may have been updated after the patient was seen, as this information can be updated by other users. Social History (Updated 01/31/25 @ 06:14 by Benoit Ham MD) Smoking Status: Never smoker alcohol intake: former current occupational status: other Travel in the last 8 weeks?: Inside the [place] Review of Systems Review of Systems Review of systems:: pertinent systems reviewed and negative unless documented below Constitutional Constitutional: Reports fatigue, Reports malaise and Reports weakness *Gastrointestinal Comments: diarrhea *Neurologic Neurologic: Reports weakness Endocrine Endocrine: Reports fatigue Exam Data for Last 24 hours Vital signs and Labs for Last 24 Hours: Temp Pulse Resp BP Pulse Ox O2 Del Method 98.1 F 80 16 81/52 L 99 Room Air 02/01/25 08:00 02/01/25 08:00 02/01/25 08:00 02/01/25 08:00 02/01/25 08:00 02/01/25 09:00 Laboratory Results - last 24 hr 02/01/25 06:07: WBC 4.9, RBC 2.67 L, Hgb 8.2 L, Hct 24.6 L, MCV 92.1, MCH 30.7, MCHC 33.3, RDW 14.6, Plt Count 128 L, MPV 9.3, Neut % (Auto) 76.7, Lymph % (Auto) 18.2, [place] % (Auto) 4.3, Eos % (Auto) 0.0 L, Baso % (Auto) 0.2, Neut # (Auto) 3.7, Lymph # (Auto) 0.9, [place] # (Auto) 0.2, Eos # (Auto) 0.0, Baso # (Auto) 0.0, Sodium 139, Potassium 3.9 D, Chloride 116 H, Carbon Dioxide 22, Anion Gap 4.9 L, BUN 9, Creatinine 0.80, Estimated Creat Clear 110, Estimated GFR 74, Est GFR ( Amer) 89 D, Glucose 128 H D, Calcium 9.0, Phosphorus 2.2 L D, Magnesium 1.5 L, Total Bilirubin 0.3, AST 21, ALT 10 L, Alkaline Phosphatase 87, Total Protein 4.9 L, Albumin 3.0 L D, Globulin 1.9, Albumin/Globulin Ratio 1.6 I & O for Last 24 hours: Intake & Output 01/29/25 01/30/25 01/31/25 02/01/25 23:59 23:59 23:59 23:59 Intake Total 480 / 1080 840 / 840 Output Total 350 / 350 0 / 0 Balance 130 / 730 840 / 840 Weight 177 lb 185 lb 13.595 oz 198 lb 3.2 oz Microbiology Reports for the Last 24 Hours: Microbiology 01/31/25 00:59 Blood Blood Culture - Preliminary NO GROWTH AFTER 24 HOURS 01/31/25 00:58 Blood Blood Culture - Preliminary NO GROWTH AFTER 24 HOURS Constitutional Constitutional: no acute distress *Routine Respiratory Exam Respiratory: Present CTA bilaterally and symmetric chest movement *Routine Cardiovascular Exam Cardiovascular: Present RRR, Normal S1 and Normal S2 *Routine Abdominal Exam Abdominal: Present soft and normoactive bowel sounds; Absent tenderness *Routine Extremities Exam Extremities: Present full ROM and normal capillary refill; Absent edema *Routine Skin Exam Skin: Present intact, dry and warm Detailed Neck Exam: Thyroids Thyroid: Absent bruit Meds Home Medications and Allergies Home Medications ?Medication ?Instructions ?Recorded ?Confirmed ?Type abemaciclib 100 mg tablet 100 mg PO BID 01/31/25 01/31/25 History (Verzenio) atogepant 60 mg tablet (Qulipta) 60 mg PO DAILY 01/31/25 01/31/25 History dexamethasone 4 mg tablet 8 mg PO DAILY 01/31/25 01/31/25 History duloxetine 30 mg capsule,delayed 30 mg PO DAILY 01/31/25 01/31/25 History release ergocalciferol (vitamin D2) 1,250 1,250 mcg PO WEEKLY 01/31/25 01/31/25 History mcg (50,000 unit) capsule exemestane 25 mg tablet 25 mg PO DAILY 01/31/25 01/31/25 History losartan 50 mg tablet 50 mg PO DAILY 01/31/25 01/31/25 History olanzapine 5 mg tablet 5 mg PO DAILY 01/31/25 01/31/25 History omeprazole 40 mg capsule,delayed 40 mg PO DAILY 01/31/25 01/31/25 History release ondansetron 8 mg disintegrating 8 mg PO TIDP PRN Nausea And 01/31/25 01/31/25 History tablet Vomiting oxybutynin chloride 5 mg 5 mg PO DAILY 01/31/25 01/31/25 History tablet,extended release 24 hr prochlorperazine maleate 10 mg 10 mg PO Q6HP PRN Nausea And 01/31/25 01/31/25 History tablet Vomiting rimegepant 75 mg disintegrating 75 mg PO DAILYP PRN Migraine 01/31/25 01/31/25 History tablet (Nurtec ODT) Headache ropinirole 0.25 mg tablet 0.25 mg PO HS 01/31/25 01/31/25 History tramadol 50 mg tablet 50 mg PO Q6HP PRN Moderate Pain 01/31/25 01/31/25 History (Scale Score 5-6) ubrogepant 100 mg tablet (Ubrelvy) 100 mg PO Q2H PRN migraine 01/31/25 01/31/25 History New Prescriptions to Start Prescriptions: Allergies Allergy/AdvReac Type Severity Reaction Status Date / Time hydromorphone (From Dilaudid) Allergy Intermediate Rash Verified 01/31/25 00:01 morphine Allergy Mild Rash Verified 01/31/25 00:01 lactose Allergy Difficulty Verified 01/31/25 05:53 Swallowing tree nut Allergy Anaphylaxis Verified 01/31/25 04:03 Assessment and Plan *Assessment and plan (1) Pulmonary embolism: Status: Acute Qualifiers: Acute cor pulmonale presence: with acute cor pulmonale Chronicity: acute Pulmonary embolism type: other Qualified Code(s): I26.09 - Other pulmonary embolism with acute cor pulmonale Category: Medical Code(s): I26.99 - Other pulmonary embolism without acute cor pulmonale (2) Intraductal carcinoma of right breast: Status: Acute Category: Medical Code(s): D05.11 - Intraductal carcinoma in situ of right breast Plan Acute pulmonary embolism Intraductal carcinoma right breast PE noted on chest CTA 01/30/2025 PESI score 87- intermediate risk Maintaing oxygen saturation of 99% on room air Echo shows borderline/mild RV dilation but normal RV function. Official read is pending. Start Xarelto 15 mg twice daily for 21 days. Then switch to 20 mg once daily. CV summary 02/01/2025: Echocardiogram shows mild RV dilation but normal function. At this time we will proceed with OAC for treatment of PE. Will only consider thrombectomy if patient becomes unstable.
[2025-02-01 16:00] VITALS: BP 101/62; PULSE 57; RESP 18; TEMP 36.5; O2SAT 97
[2025-02-01] MEDS: K-PHOS NEUTRAL 250MG TABLET 250 MG PO (18:57)
[2025-02-01 20:00] VITALS: BP 119/62; PULSE 82; RESP 20; TEMP 36.8; O2SAT 98
[2025-02-01] MEDS: ROPINIROLE HCL 0.25 MG TABLET PO (20:06)
[2025-02-01] MEDS: PANTOPRAZOLE 40MG TABLET 40 MG PO (20:06)
[2025-02-02] MEDS: PIPERCILLIN/TAZO 3.375 GM in 0.9 % SODIUM CHLORIDE 50 ML IV ×3 (00:24→11:32)
[2025-02-02 04:00] VITALS: BMI 35.4
[2025-02-02 04:24] VITALS: BP 112/67; PULSE 63; RESP 17; TEMP 36.8; O2SAT 98
[2025-02-02 06:39] LABS: Alanine Aminotransferase 12 U/L (12-78); Albumin Level 3.0 g/dl (3.5-5.0); Albumin/Globulin Ratio 1.5 (1.1-1.8); Alkaline Phosphatase 78 U/L (38-126); Anion Gap 5.8 mEq/L (5-15); Aspartate Amino Transferase 16 U/L (14-36); Bilirubin,Total 0.2 mg/dl (0.2-1.3); Blood Urea Nitrogen 9 mg/dl (7-17); Calcium 9.0 mg/dl (8.4-10.2); Carbon Dioxide 25 mmol/L (22.0-30.0); Chloride 114 mmol/L (98-107); Creatinine Clearance Estimated 111 mL/min (50-200); Creatinine,Serum 0.80 mg/dl (0.52-1.04); Estimated Glomerular Filt Rate 74 ml/min (>60); GFR (African American) 89 ML/MIN (>60); Globulin 2.0 g/dL (1.3-3.2); Glucose 106 mg/dl (74-100); Hematocrit 25.6 % (37.0-47.0); Hemoglobin 8.5 g/dL (12.2-16.2); Immature Granulocytes % 2.0 %; Magnesium 1.4 mg/dl (1.6-2.3); Mean Corpuscular HGB Conc 33.2 g/dL (31.8-35.4); Mean Corpuscular Hemoglobin 30.6 pg (27.0-31.2); Mean Corpuscular Volume 92.1 fl (81-99); Nucleated Red Blood Cells % 0 %; Platelet Count 152 K/mm3 (142-424); Potassium 3.8 mmoL/L (3.5-5.1); Red Blood Count 2.78 M/mm3 (4.20-5.40); Red Cell Distribution Width-SD 49.2 fL; Sodium 141 mmol/L (136-145); Total Protein,Serum 5.0 g/dl (6.3-8.2); White Blood Count 5.5 K/mm3 (4.8-10.8)
[2025-02-02 07:14] LABS: Phosphorous 2.4 mg/dl (2.5-4.5)
--- NOTE | 2025-02-02 07:51 | EXP.DC.SUM ---
General Admission date:: 01/31/25 Discharge date: 02/02/25 HPI HPI HPI: Meri Cole is 59-year-old female with a medical history significant for metastatic intraductal carcinoma stage IIIb of right breast s/p total mastectomy, chemoradiotherapy ([facility]) on maintenance immunotherapy, anxiety/depression, hypertension, GERD who presents with at least 3 weeks of poor p.o. tolerance, nausea and intermittent vomiting, abdominal pain, and watery diarrhea. Patient states oncologist recently changed her maintenance therapy, including dosing, about a month ago after which point she thinks symptoms began. She states she reached out to her oncologist who recommended keeping her appointment this coming . She initially had nausea with vomiting which has improved, but continues to have poor oral tolerance. Endorses 3 weeks of watery diarrhea, denies recent antibiotic use. Denies fever/chills, chest pain, shortness of breath, urinary symptoms. Workup in the ED significant for potassium 2.5, phosphorus 2.2, normal magnesium, CT abdomen showing mild colitis with mild biliary ductal dilatation with prior cholecystectomy, CTA chest showing lingular PE with evidence of RV strain RV/LV ratio of 1.0, and right-sided lung inflammation which patient states is known. Of note, patient recently got a second opinion regarding her breast cancer at [facility] who stated patient will likely have left-sided breast cancer as well. Given severe electrolyte abnormalities, intractable diarrhea, and poor oral tolerance Case discussed with ED provider and decision made to admit patient for the same. Exam Data for Last 24 hours Vital signs and Labs for Last 24 Hours: Temp Pulse Resp BP Pulse Ox O2 Del Method 98.3 F 63 17 112/67 98 Room Air 02/02/25 04:24 02/02/25 04:24 02/02/25 04:24 02/02/25 04:24 02/02/25 04:24 02/02/25 06:31 Laboratory Results - last 24 hr 02/01/25 06:07: Phosphorus 2.2 L D 02/02/25 06:05: WBC 5.5, RBC 2.78 L, Hgb 8.5 L, Hct 25.6 L, MCV 92.1, MCH 30.6, MCHC 33.2, RDW 14.7, Plt Count 152, MPV 9.2, Neut % (Auto) 73.2, Lymph % (Auto) 20.8, [place] % (Auto) 3.6, Eos % (Auto) 0.2, Baso % (Auto) 0.2, Neut # (Auto) 4.0, Lymph # (Auto) 1.1, [place] # (Auto) 0.2, Eos # (Auto) 0.0, Baso # (Auto) 0.0, Sodium 141, Potassium 3.8, Chloride 114 H, Carbon Dioxide 25, Anion Gap 5.8, BUN 9, Creatinine 0.80, Estimated Creat Clear 111, Estimated GFR 74, Est GFR ( Amer) 89, Glucose 106 H, Calcium 9.0, Phosphorus 2.4 L, Magnesium 1.4 L, Total Bilirubin 0.2, AST 16, ALT 12, Alkaline Phosphatase 78, Total Protein 5.0 L, Albumin 3.0 L, Globulin 2.0, Albumin/Globulin Ratio 1.5 I & O for Last 24 hours: Intake & Output 01/30/25 01/31/25 02/01/25 02/02/25 23:59 23:59 23:59 23:59 Intake Total 480 / 1080 1480 / 1480 340 / 340 Output Total 350 / 350 0 / 0 Balance 130 / 730 1480 / 1480 340 / 340 Weight 80.286 kg 84.3 kg 89.902 kg 90.832 kg Microbiology Reports for the Last 24 Hours: Microbiology 01/31/25 00:59 Blood Blood Culture - Preliminary NO GROWTH AFTER 48 HOURS 01/31/25 00:58 Blood Blood Culture - Preliminary NO GROWTH AFTER 48 HOURS Results Data Completed and Pending Labs on day of discharge: Labs from last 24 hours 02/02/25 02/01/25 06:05 06:07 WBC 5.5 RBC 2.78 L Hgb 8.5 L Hct 25.6 L MCV 92.1 MCH 30.6 MCHC 33.2 RDW 14.7 Plt Count 152 MPV 9.2 Neut % (Auto) 73.2 Lymph % (Auto) 20.8 [place] % (Auto) 3.6 Eos % (Auto) 0.2 Baso % (Auto) 0.2 Neut # (Auto) 4.0 Lymph # (Auto) 1.1 [place] # (Auto) 0.2 Eos # (Auto) 0.0 Baso # (Auto) 0.0 Sodium 141 Potassium 3.8 Chloride 114 H Carbon Dioxide 25 Anion Gap 5.8 BUN 9 Creatinine 0.80 Estimated Creat Clear 111 Estimated GFR 74 Est GFR ( Amer) 89 Glucose 106 H Calcium 9.0 Phosphorus 2.4 L 2.2 L D Magnesium 1.4 L Total Bilirubin 0.2 AST 16 ALT 12 Alkaline Phosphatase 78 Total Protein 5.0 L Albumin 3.0 L Globulin 2.0 Albumin/Globulin Ratio 1.5 Preliminary micro results at discharge 01/31/25 00:59 Blood Culture - Preliminary Blood NO GROWTH AFTER 48 HOURS 01/31/25 00:58 Blood Culture - Preliminary Blood NO GROWTH AFTER 48 HOURS DS: Diagnosis Discharge Diagnosis (1) Diarrhea: Status: Acute Code(s): R19.7 - Diarrhea, unspecified Qualifiers: Diarrhea type: presumed infectious Qualified Code(s): R19.7 - Diarrhea, unspecified (2) Acute hypokalemia: Status: Acute Code(s): E87.6 - Hypokalemia (3) Intraductal carcinoma of right breast: Status: Acute Code(s): D05.11 - Intraductal carcinoma in situ of right breast (4) Pulmonary embolism: Status: Acute Code(s): I26.99 - Other pulmonary embolism without acute cor pulmonale Qualifiers: Pulmonary embolism type: other Chronicity: acute Acute cor pulmonale presence: with acute cor pulmonale Qualified Code(s): I26.09 - Other pulmonary embolism with acute cor pulmonale (5) Anxiety and depression: Status: Acute Code(s): F41.9 - Anxiety disorder, unspecified; F32.A - Depression, unspecified (6) GERD (gastroesophageal reflux disease): Status: Acute Code(s): K21.9 - Gastro-esophageal reflux disease without esophagitis (7) Hypertension: Status: Acute Code(s): I10 - Essential (primary) hypertension (8) Restless leg syndrome: Status: Acute Code(s): G25.81 - Restless legs syndrome Meds Home Medications and Allergies Home Medications ?Medication ?Instructions ?Recorded ?Confirmed ?Type abemaciclib 100 mg tablet 100 mg PO BID 01/31/25 01/31/25 History (Verzenio) atogepant 60 mg tablet (Qulipta) 60 mg PO DAILY 01/31/25 01/31/25 History dexamethasone 4 mg tablet 8 mg PO DAILY 01/31/25 01/31/25 History duloxetine 30 mg capsule,delayed 30 mg PO DAILY 01/31/25 01/31/25 History release ergocalciferol (vitamin D2) 1,250 1,250 mcg PO WEEKLY 01/31/25 01/31/25 History mcg (50,000 unit) capsule exemestane 25 mg tablet 25 mg PO DAILY 01/31/25 01/31/25 History losartan 50 mg tablet 50 mg PO DAILY 01/31/25 01/31/25 History olanzapine 5 mg tablet 5 mg PO DAILY 01/31/25 01/31/25 History omeprazole 40 mg capsule,delayed 40 mg PO DAILY 01/31/25 01/31/25 History release ondansetron 8 mg disintegrating 8 mg PO TIDP PRN Nausea And 01/31/25 01/31/25 History tablet Vomiting oxybutynin chloride 5 mg 5 mg PO DAILY 01/31/25 01/31/25 History tablet,extended release 24 hr prochlorperazine maleate 10 mg 10 mg PO Q6HP PRN Nausea And 01/31/25 01/31/25 History tablet Vomiting rimegepant 75 mg disintegrating 75 mg PO DAILYP PRN Migraine 01/31/25 01/31/25 History tablet (Nurtec ODT) Headache ropinirole 0.25 mg tablet 0.25 mg PO HS 01/31/25 01/31/25 History tramadol 50 mg tablet 50 mg PO Q6HP PRN Moderate Pain 01/31/25 01/31/25 History (Scale Score 5-6) ubrogepant 100 mg tablet (Ubrelvy) 100 mg PO Q2H PRN migraine 01/31/25 01/31/25 History New Prescriptions to Start Prescriptions: Allergies Allergy/AdvReac Type Severity Reaction Status Date / Time hydromorphone (From Dilaudid) Allergy Intermediate Rash Verified 01/31/25 00:01 morphine Allergy Mild Rash Verified 01/31/25 00:01 lactose Allergy Difficulty Verified 01/31/25 05:53 Swallowing tree nut Allergy Anaphylaxis Verified 01/31/25 04:03 Discharge Plan Disposition Patient Disposition: Home, Self-Care Condition: Fair Follow up Plan Follow up with: Teetee Hale APRN [Nurse Practitioner, Cardiology] - Enter time for follow up Provider,Referral, [Primary Care Provider, Medical] - Enter time for follow up Prescriptions/Medication Reconciliation: Continued ondansetron 8 mg tablet,disintegrating 8 mg PO TIDP PRN (Reason: Nausea And Vomiting) ropinirole 0.25 mg tablet 0.25 mg PO HS Verzenio 100 mg tablet 100 mg PO BID Ubrelvy 100 mg tablet 100 mg PO Q2H PRN (Reason: migraine) Nurtec ODT 75 mg tablet,disintegrating 75 mg PO DAILYP PRN (Reason: Migraine Headache) olanzapine 5 mg Tablet 5 mg PO DAILY oxybutynin chloride 5 mg tablet extended release 24hr 5 mg PO DAILY omeprazole 40 mg capsule,delayed release(DR/EC) 40 mg PO DAILY exemestane 25 mg tablet 25 mg PO DAILY duloxetine 30 mg capsule,delayed release(DR/EC) 30 mg PO DAILY prochlorperazine maleate 10 mg Tablet 10 mg PO Q6HP PRN (Reason: Nausea And Vomiting) dexamethasone 4 mg Tablet 8 mg PO DAILY ergocalciferol (vitamin D2) 1,250 mcg (50,000 unit) capsule 1,250 mcg PO WEEKLY Qulipta 60 mg tablet 60 mg PO DAILY tramadol 50 mg Tablet 50 mg PO Q6HP PRN (Reason: Moderate Pain (Scale Score 5-6)) No Action losartan 50 mg tablet 50 mg PO DAILY Problem Reconciliation Problems Reviewed?: Yes Patient Discharge Instructions ACTIVITY: Continue current activity DIET: continue same diet Patient Instructions: DI for Dehydration -- Adult, DI for Pulmonary Embolism, DI for Hypokalemia Print Language: Turkish Providers Primary Care Provider: Provider,Referral Admit Provider: Benoit Ham Attending Provider: Benoit Ham
[2025-02-02 07:53] VITALS: BP 105/60; PULSE 94; RESP 18; TEMP 37; O2SAT 95
[2025-02-02] MEDS: DEXAMETHASONE 4MG TABLET 8 MG PO (08:46)
[2025-02-02] MEDS: OLANZapine 5 MG ODT TABLET SL (08:46)
[2025-02-02] MEDS: K-PHOS NEUTRAL 250MG TABLET 250 MG PO ×2 (08:47→16:39)
[2025-02-02] MEDS: MAGNESIUM SULFATE IN WATER 2 GM/50 ML PIGGYBACK IV ×3 (08:47→10:29)
--- NOTE | 2025-02-02 09:24 | EXP.CARD.PN ---
Subjective Subjective Date: 02/02/25 Time: 08:00 Principal diagnosis: Diarrhea and malaise Interval history: Patient reports she is feeling well this morning. She denies chest pain reports shortness of breath with walking to the bathroom. Patient maintaining oxygen saturation greater than 95% on room air at rest but drops to 80s with ambulation. Otherwise vitals stable. Exam Data for Last 24 hours Vital signs and Labs for Last 24 Hours: Temp Pulse Resp BP Pulse Ox O2 Del Method 98.6 F 94 H 18 105/60 L 95 Room Air 02/02/25 07:53 02/02/25 07:53 02/02/25 07:53 02/02/25 07:53 02/02/25 07:53 02/02/25 09:00 Laboratory Results - last 24 hr 02/01/25 06:07: Phosphorus 2.2 L D 02/02/25 06:05: WBC 5.5, RBC 2.78 L, Hgb 8.5 L, Hct 25.6 L, MCV 92.1, MCH 30.6, MCHC 33.2, RDW 14.7, Plt Count 152, MPV 9.2, Neut % (Auto) 73.2, Lymph % (Auto) 20.8, [place] % (Auto) 3.6, Eos % (Auto) 0.2, Baso % (Auto) 0.2, Neut # (Auto) 4.0, Lymph # (Auto) 1.1, [place] # (Auto) 0.2, Eos # (Auto) 0.0, Baso # (Auto) 0.0, Sodium 141, Potassium 3.8, Chloride 114 H, Carbon Dioxide 25, Anion Gap 5.8, BUN 9, Creatinine 0.80, Estimated Creat Clear 111, Estimated GFR 74, Est GFR ( Amer) 89, Glucose 106 H, Calcium 9.0, Phosphorus 2.4 L, Magnesium 1.4 L, Total Bilirubin 0.2, AST 16, ALT 12, Alkaline Phosphatase 78, Total Protein 5.0 L, Albumin 3.0 L, Globulin 2.0, Albumin/Globulin Ratio 1.5 I & O for Last 24 hours: Intake & Output 01/30/25 01/31/25 02/01/25 02/02/25 23:59 23:59 23:59 23:59 Intake Total 480 / 1080 1480 / 1480 510 / 510 Output Total 350 / 350 0 / 0 0 / 0 Balance 130 / 730 1480 / 1480 510 / 510 Weight 177 lb 185 lb 13.595 oz 198 lb 3.2 oz 200 lb 4 oz Microbiology Reports for the Last 24 Hours: Microbiology 01/31/25 00:59 Blood Blood Culture - Preliminary NO GROWTH AFTER 48 HOURS 01/31/25 00:58 Blood Blood Culture - Preliminary NO GROWTH AFTER 48 HOURS Constitutional Constitutional: no acute distress *Routine Respiratory Exam Respiratory: Present CTA bilaterally and symmetric chest movement *Routine Cardiovascular Exam Cardiovascular: Present RRR, Normal S1 and Normal S2 *Routine Abdominal Exam Abdominal: Present soft and normoactive bowel sounds; Absent tenderness *Routine Extremities Exam Extremities: Present full ROM and normal capillary refill; Absent edema *Routine Skin Exam Skin: Present intact, dry and warm Detailed Neck Exam: Thyroids Thyroid: Absent bruit Progress Note: A&P Assessment and plan (1) Diarrhea: Status: Acute (2) Acute hypokalemia: Status: Acute (3) Intraductal carcinoma of right breast: Status: Acute (4) Pulmonary embolism: Status: Acute (5) Anxiety and depression: Status: Acute (6) GERD (gastroesophageal reflux disease): Status: Acute (7) Hypertension: Status: Acute (8) Restless leg syndrome: Status: Acute Assessment and Plan Assessment and Plan for All Diagnoses:: Acute pulmonary embolism Intraductal carcinoma right breast PE noted on chest CTA 01/30/2025 PESI score 87- intermediate risk Maintaing oxygen saturation of 99% on room air at rest but drops to 80s with ambulation Echo shows borderline/mild RV dilation but normal RV function. Official read is pending. Discussed with Dr. Alfonso, he continues to favor OAC treatment to thrombectomy at this time. Continue Xarelto 15 mg twice daily for 21 days. Then switch to 20 mg once daily 02/02/2025: No plans for intervention, continue treatment of PE with OAC. Please have patient follow up in cardiology clinic for re evalutation on Saturday.
--- NOTE | 2025-02-02 10:29 | PC.NURSE ---
Patient made it 25ft on walk test before getting lightheaded and needing to take a seat. Her O2 sat started at 98% and within the first 25ft she had dropped to 83%. Patient continued to try and get up to walk back to her room and she started getting shaky and was dizzy. Patient was wheeled back to her room and helped into bed, O2 sat back up to 97% at this time.
--- NOTE | 2025-02-02 10:56 | P.PN_ITS ---
Subjective *Date: 02/02/25 *Time: 13:35 Interval history: Weak when she ambulates. Able to walk 20 feet but then became severely dyspneic. After resting O2 sats improved above 90. Patient lives by herself. Denies zeb chest pain, nausea or vomiting. Therapy evaluating today. Medical Exam Vital signs and Labs for Last 24 Hours: Vital Signs Temp Pulse Resp BP Pulse Ox O2 Del Method 02/02/25 09:00 Room Air 02/02/25 08:00 Room Air 02/02/25 07:53 98.6 F 94 H 18 105/60 L 95 Room Air 02/02/25 06:31 Room Air 02/02/25 05:00 Room Air 02/02/25 04:24 98.3 F 63 17 112/67 98 Room Air 02/02/25 03:00 Room Air 02/02/25 01:00 Room Air 02/01/25 23:00 Room Air 02/01/25 21:00 Room Air 02/01/25 20:00 Room Air 02/01/25 20:00 98.2 F 82 20 119/62 98 Room Air 02/01/25 19:00 Room Air 02/01/25 17:00 Room Air 02/01/25 16:00 97.7 F 57 L 18 101/62 L 97 Room Air 02/01/25 15:00 Room Air 02/01/25 13:00 Room Air 02/01/25 11:00 Room Air Intake and Output 02/01/25 02/02/25 02/02/25 23:59 07:59 15:59 Intake Total 280 / 1480 340 / 560 220 / 560 Output Total 0 / 0 0 / 0 0 / 0 Balance 280 / 1480 340 / 560 220 / 560 Intake: Intake, Oral Amount 280 / 880 240 / 360 120 / 360 Intake, Total IV Amount 100 / 200 100 / 200 Magnesium Sulfate in Water 2 gm 100 / 100 In 50 ml @ 50 mls/hr IV Q1H [facility] Rx#:[id number] Pipercillin/Tazo 3.375 gm In 0. 100 / 100 9 % Sodium Chloride 50 ml @ 100 mls/hr IV Q6H [facility] Rx#:[id number] Output: Output, Urine Amount 0 / 0 0 / 0 0 / 0 Other: Number of Voids 0 Number of Unmeasured Voids 1 1 1 Weight 90.832 kg Patient Weight 02/02/25 23:59 Weight 90.832 kg Laboratory Results - last 24 hr 02/01/25 06:07: Phosphorus 2.2 L D 02/02/25 06:05: WBC 5.5, RBC 2.78 L, Hgb 8.5 L, Hct 25.6 L, MCV 92.1, MCH 30.6, MCHC 33.2, RDW 14.7, Plt Count 152, MPV 9.2, Neut % (Auto) 73.2, Lymph % (Auto) 20.8, [place] % (Auto) 3.6, Eos % (Auto) 0.2, Baso % (Auto) 0.2, Neut # (Auto) 4.0, Lymph # (Auto) 1.1, [place] # (Auto) 0.2, Eos # (Auto) 0.0, Baso # (Auto) 0.0, Sodium 141, Potassium 3.8, Chloride 114 H, Carbon Dioxide 25, Anion Gap 5.8, BUN 9, Creatinine 0.80, Estimated Creat Clear 111, Estimated GFR 74, Est GFR (Mary n Amer) 89, Glucose 106 H, Calcium 9.0, Phosphorus 2.4 L, Magnesium 1.4 L, Total Bilirubin 0.2, AST 16, ALT 12, Alkaline Phosphatase 78, Total Protein 5.0 L, Albumin 3.0 L, Globulin 2.0, Albumin/Globulin Ratio 1.5 I & O for Labs for Last 24 Hours: Intake & Output 01/30/25 01/31/25 02/01/25 02/02/25 23:59 23:59 23:59 23:59 Intake Total 480 / 1080 1480 / 1480 560 / 560 Output Total 350 / 350 0 / 0 0 / 0 Balance 130 / 730 1480 / 1480 560 / 560 Weight 80.286 kg 84.3 kg 89.902 kg 90.832 kg Microbiology Reports for the Last 24 Hours: Microbiology 01/31/25 00:59 Blood Blood Culture - Preliminary NO GROWTH AFTER 48 HOURS 01/31/25 00:58 Blood Blood Culture - Preliminary NO GROWTH AFTER 48 HOURS Constitutional: Present mild distress, obese, chronically ill appearing and cooperative Head: Present atraumatic and normocephalic ENT: Present normal exam Respiratory: Present normal respiratory effort; Absent rhonchi, wheezes or crackles Cardiac: Present Reg Rate and Rhythm GI: Present soft and normal bowel sounds; Absent distention or tenderness Extremities: Present normal inspection and full ROM Skin: Present intact; Absent erythema Neuro: Present Grossly Intact, alert, awake, oriented x 3 and moves all extremities Assessment and Plan *Assessment and plan (1) Pulmonary embolism: Status: Acute Qualifiers: Pulmonary embolism type: other Chronicity: acute Acute cor pulmonale presence: with acute cor pulmonale Qualified Code(s): I26.09 - Other pulmonary embolism with acute cor pulmonale Category: Medical Code(s): I26.99 - Other pulmonary embolism without acute cor pulmonale (2) Diarrhea: Status: Acute Qualifiers: Diarrhea type: presumed infectious Qualified Code(s): R19.7 - Diarrhea, unspecified Category: Medical Code(s): R19.7 - Diarrhea, unspecified (3) Acute hypokalemia: Status: Acute Category: Medical Code(s): E87.6 - Hypokalemia (4) Intraductal carcinoma of right breast: Status: Acute Category: Medical Code(s): D05.11 - Intraductal carcinoma in situ of right breast (5) Anxiety and depression: Status: Acute Category: Medical Code(s): F41.9 - Anxiety disorder, unspecified; F32.A - Depression, unspecified (6) GERD (gastroesophageal reflux disease): Status: Acute Category: Medical Code(s): K21.9 - Gastro-esophageal reflux disease without esophagitis (7) Hypertension: Status: Acute Category: Medical Code(s): I10 - Essential (primary) hypertension (8) Restless leg syndrome: Status: Acute Category: Medical Code(s): G25.81 - Restless legs syndrome Plan Meri Cole is 59-year-old female with a medical history significant for metastatic intraductal carcinoma stage IIIb of right breast s/p total mastectomy, chemoradiotherapy ([facility] oncology) on maintenance immunotherapy, anxiety/depression, hypertension, GERD who presents with at least 3 weeks of poor p.o. tolerance, nausea and intermittent vomiting, abdominal pain, and watery diarrhea. Patient states oncologist recently changed her maintenance therapy, including dosing, about a month ago after which point she thinks symptoms began. She states she reached out to her oncologist who recommended keeping her appointment this coming . She initially had nausea with vomiting which has improved, but continues to have poor oral tolerance. Endorses 3 weeks of watery diarrhea, denies recent antibiotic use. Denies fever/chills, chest pain, shortness of breath, urinary symptoms. Workup in the ED significant for potassium 2.5, phosphorus 2.2, normal magnesium, CT abdomen showing mild colitis with mild biliary ductal dilatation with prior cholecystectomy, CTA chest showing lingular PE with evidence of RV strain RV/LV ratio of 1.0, and right-sided lung inflammation which patient states is known. Of note, patient recently got a second opinion regarding her breast cancer at [facility] who stated patient will likely have left-sided breast cancer as well. Given severe electrolyte abnormalities, intractable diarrhea, and poor oral tolerance Case discussed with ED provider and decision made to admit patient for the same. Cardiology evaluated today, will transition to DOAC. If remains stable overnight, plan to discharge in the morning #Abdominal pain #Diarrhea #Colitis #Decreased oral tolerance #Hypokalemia #Hypophosphatemia ? Presents with 3 weeks of malaise, weakness, decreased oral tolerance, diarrhea, abdominal pain. Found to have colitis on CT, with severe electrolyte abnormalities. ? This is apparently in the setting of recent changes to her maintenance therapy including Verzenio, exemestane. Patient does not know exact changes that were made. ? CT shows mild colitis, patient continues to have watery diarrhea. Diarrhea panel negative for C. difficile. - Discontinue IV antibiotics with no overt source of infection -White count normal at 5.5, hemoglobin stable at 8.5 -Lab showing improvement with potassium 3.8, magnesium 1.4, phosphorus 2.4. Replacing per protocol. Sodium normal at 141. Kidney function normal with BUN 9, creatinine 0.8. Repeat CBC, CMP, magnesium ordered for the morning #Metastatic intraductal carcinoma stage IIIb #S/p left total mastectomy, chemoradiotherapy #Lingular pulmonary embolism #RV strain ? Follows with [facility] [place] oncology. Has a follow-up appointment on , 02/04/2025. ? Finished chemotherapy in May 2024, radiation therapy in September 2024, and total mastectomy in June 2024. ? Apparently has metastatic cancer to surrounding lymph nodes. ? Currently taking Verzenio, exemestane. Hold these until above symptoms subside. ? Continue home dexamethasone 8 mg daily. ? CTA chest shows lingular pulmonary embolism with suggestion of RV strain. Echo obtained showing slight RV strain. Troponin stable however. -Discussed case with cardiology, echo shows mild RV dilation with normal RV function. Continue Xarelto 15 mg twice daily for 21 days then switch to 20 mg daily. - In light of dyspnea with exertion, will have therapy including PT and OT evaluate today. Reevaluate need for oxygen prior to discharge home. #Anxiety/depression: Continue home Zyprexa. #Hypertension: Hold home losartan for now. BP soft #GERD: Continue home PPI. #Restless leg syndrome: Continue home Requip 0.25 mg nightly. Full code Xarelto Regular diet
--- NOTE | 2025-02-02 13:45 | HMH.OTEV ---
OT Inpatient Evaluation Rehab OT IP Evaluation Start: 02/02/25 10:29 Freq: ONCE Status: Active Protocol: [facility] (Rec: 02/02/25 13:45 [facility] [id number]) Rehab OT IP Assessment Subjective History Pt oriented x 3 on arrival. Pt agreeable to engage in therapy evaluation. Pt admitted on 01/31/25 due to dehydration. History and physical: Meri Cole is 59-year-old female with a medical history significant for metastatic intraductal carcinoma stage IIIb of right breast s/p total mastectomy, chemoradiotherapy ([facility]) on maintenance immunotherapy, anxiety/ depression, hypertension, GERD who presents with at least 3 weeks of poor p.o. tolerance, nausea and intermittent vomiting, abdominal pain, and watery diarrhea. Patient states oncologist recently changed her maintenance therapy, including dosing, about a month ago after which point she thinks symptoms began. She states she reached out to her oncologist who recommended keeping her appointment this coming . She initially had nausea with vomiting which has improved, but continues to have poor oral tolerance. Endorses 3 weeks of watery diarrhea, denies recent antibiotic use. Denies fever/chills, chest pain, shortness of breath, urinary symptoms. Workup in the ED significant for potassium 2.5, phosphorus 2.2, normal magnesium, CT abdomen showing mild colitis with mild biliary ductal dilatation with prior cholecystectomy, CTA chest showing lingular PE with evidence of RV strain RV/LV ratio of 1.0, and right- sided lung inflammation which patient states is known. Of note, patient recently got a second opinion regarding her breast cancer at [facility] who stated patient will likely have left-sided breast cancer as well. Given severe electrolyte abnormalities, intractable diarrhea, and poor oral tolerance Case discussed with ED provider and decision made to admit patient for the same. Subjective Pt reports she lives alone. Pt claims she is normally independent with all ADLs and IADLs. She does have a friend that assists her as needed. She still drives. She uses a rolling walker during functional transfers. Pt reports her oxygen dropped earlier when she got up. Therapist checked oxygen while sitting at eob before functional transfer and her o2 was at 97%. Pt stood from eob and engaged in functional transfer of ~25 feet with cga and rolling walker and returned to sitting at eob. Therapist checked o2 again and it was 94%. Objective Patient Orientation Person,Place,Birthday Right Upper WFL Extremity Gross ROM Left Upper Extremity WFL Gross ROM Bed Mobility bed mobility-scooting,bed mobility - supine/sit Assist Level Supervision/Stand by Transfer Training Sit/Stand Transfer Assist Level Contact Guard/Hand Hold Chair Transfer Contact Guard/Hand Hold Ability Chair Transfer Sit to/from Ambulatory Technique Chair Transfer Rolling Walker Assistive Devices Lower Body Dressing Standby Assistance Ability Rehab OT IP prob,goals,plan Problems Date of Evaluation: 02/02/25 Rehab Potential Rehab Potential Innapropriate for Skilled Therapy Discharge Plan OT Discharge Plan Pt appears to be at baseline with functional transfers and ADL independence. Pt can return home once she is medically stable per physician. Eval Complexity Eval Charge Codes 94661 - Moderate Complexity PHYSICIAN CERTIFICATION: I certify the specified therapy services for Meri Cole are required, authorized, and reviewed every 30 days.
[2025-02-02 16:00] VITALS: BP 118/75; PULSE 69; RESP 18; TEMP 36.7; O2SAT 96
--- NOTE | 2025-02-02 17:31 | PC.NURSE ---
Pt supine in bed. a&ox4. magnesium replaced per protocol. cards consult- see report. no complaints of pain. ambulates with standby assistance. pt experiences drop in o2 sats when ambulating. rebounds appropiately with rest. no needs at this time.call light within reach.
[2025-02-02 20:00] VITALS: BP 131/70; PULSE 76; RESP 18; TEMP 36.8; O2SAT 96
[2025-02-02] MEDS: ROPINIROLE HCL 0.25 MG TABLET PO (20:55)
[2025-02-02] MEDS: PANTOPRAZOLE 40MG TABLET 40 MG PO (20:55)
[2025-02-03 03:39] VITALS: BP 113/73; PULSE 59; RESP 15; TEMP 36.4; O2SAT 93; BMI 34.9
--- NOTE | 2025-02-03 05:57 | PC.NURSE ---
Patient currently resting with eyes closed with no acute distress at this time. Patient has no complaints of pain or discomfort at this time. Patient A & Ox4. Call light within reach. No acute changes noted this shift.
[2025-02-03 06:10] LABS: Hematocrit 29.7 % (37.0-47.0); Immature Granulocytes % 1.0 %; Mean Corpuscular HGB Conc 33.3 g/dL (31.8-35.4); Mean Corpuscular Hemoglobin 30.8 pg (27.0-31.2); Mean Corpuscular Volume 92.5 fl (81-99); Nucleated Red Blood Cells % 0 %; Platelet Count 171 K/mm3 (142-424); Red Blood Count 3.21 M/mm3 (4.20-5.40); Red Cell Distribution Width-SD 49.1 fL; White Blood Count 5.8 K/mm3 (4.8-10.8)
[2025-02-03 06:24] LABS: Hemoglobin 9.8 g/dL (12.2-16.2)
[2025-02-03 06:32] LABS: Alanine Aminotransferase 12 U/L (12-78); Albumin Level 3.6 g/dl (3.5-5.0); Albumin/Globulin Ratio 1.7 (1.1-1.8); Alkaline Phosphatase 93 U/L (38-126); Anion Gap 9.2 mEq/L (5-15); Aspartate Amino Transferase 20 U/L (14-36); Bilirubin,Total 0.2 mg/dl (0.2-1.3); Blood Urea Nitrogen 8 mg/dl (7-17); Calcium 9.1 mg/dl (8.4-10.2); Carbon Dioxide 26 mmol/L (22.0-30.0); Chloride 110 mmol/L (98-107); Creatinine Clearance Estimated 109 mL/min (50-200); Creatinine,Serum 0.80 mg/dl (0.52-1.04); Estimated Glomerular Filt Rate 74 ml/min (>60); GFR (African American) 89 ML/MIN (>60); Globulin 2.1 g/dL (1.3-3.2); Glucose 94 mg/dl (74-100); Magnesium 2.1 mg/dl (1.6-2.3); Potassium 3.2 mmoL/L (3.5-5.1); Sodium 142 mmol/L (136-145); Total Protein,Serum 5.7 g/dl (6.3-8.2)
[2025-02-03] MEDS: K-PHOS NEUTRAL 250MG TABLET 250 MG PO (06:35)
[2025-02-03 08:00] VITALS: BP 112/74; PULSE 99; RESP 16; TEMP 36.8; O2SAT 99
[2025-02-03] MEDS: OLANZapine 5 MG ODT TABLET SL (08:21)
[2025-02-03] MEDS: POTASSIUM CHLORIDE 20MEQ TAB 40 MEQ PO ×2 (08:21→11:12)
[2025-02-03] MEDS: DEXAMETHASONE 4MG TABLET 8 MG PO (08:21)
[2025-02-03] MEDS: ONDANSETRON 4MG/2ML VIAL 4 MG IV (09:49)
--- NOTE | 2025-02-03 09:55 | ECG_ITS ---
APPROVED REPORT Exam: Resting ECG HR:115 bpm ECG Measurements Heart Rate 115 AXES RI 152 P 14 QRSd 104 QRS 1 QT 369 T 15 QTc 437 Conclusion SINUS TACHYCARDIA MINIMAL VOLTAGE CRITERIA FOR LVH, CONSIDER NORMAL VARIANT [MEETS CRITERIA IN ONE OF: R(aVL), S(V1), R(V5), R(V5/V6)+S(V1)] POSSIBLE ANTERIOR MYOCARDIAL INFARCTION , PROBABLY OLD [30 ms Q WAVE IN V3/V4, OR R < 0.2 mV IN V4] INFERIOR MYOCARDIAL INFARCTION , OF INDETERMINATE AGE [40+ ms Q WAVE AND/OR ST/T ABNORMALITY IN II/aVF] ABNORMAL ECG UNCONFIRMED REPORT Electronically signed by : Ayush Kwon MD 02/04/2025 08:40:53
--- NOTE | 2025-02-03 10:03 | PC.NURSE ---
pt stated she was having heart palpitations and some nausea. she has no history of a fib. vitals obtained B/P 136/81 HR 121. she denies having any chest pain at this time. pt given zofran and 12 lead EKG ordered. EKG results compared to one from 01/[address] and results called to Dr Velazquez. he asked for a troponin to be ordered stat.
[2025-02-03 10:56] LABS: Troponin I < 0.01 ng/ml (0.00-0.034)
--- NOTE | 2025-02-03 11:31 | HMH.PTEV ---
Physical Therapy Evaluation Rehab PT IP Evaluation Start: 02/02/25 10:29 Freq: ONCE Status: Active Protocol: Document 02/03/25 09:00 ALDA (Rec: 02/03/25 11:31 ALDA [id number]) Subjective/History History History 59-year-old female with a medical history significant for metastatic intraductal carcinoma stage IIIb of right breast s/p total mastectomy, chemoradiotherapy ( [facility]) on maintenance immunotherapy, anxiety/depression, hypertension, GERD who presents with at least 3 weeks of poor p.o. tolerance, nausea and intermittent vomiting, abdominal pain, and watery diarrhea. Patient states oncologist recently changed her maintenance therapy, including dosing, about a month ago after which point she thinks symptoms began. She states she reached out to her oncologist who recommended keeping her appointment this coming . [place], 1 flight [address] to her apt, and she is generally independent with all mobility using RW. Subjective Subjective She reports no c/o this am and is agreeable to mobility assessment. [facility] How much help from another person do you currently need... Turning from your None back to your side while in a flat bed without using bedrails? Moving from lying on None back to sitting on the side of a flat bed without using bedrails? Moving to and from a None bed to a chair ( including a wheelchair)? Standing up from a None chair using your arms? (e.g., wheelchair, bedside chair) Walking in hospital None room? Climbing 3-5 steps None with a railing? Mobility Score 24 Mobility Level [place] [id number] Walk 250 feet or more Mobility Calculator Rehab PT IP Eval Objective Appearance Patient Behavior Appropriate Patient Orientation Person,Place,Time Difficulty following none instructions Speech Pattern Clear Ambulation Patient Able to Yes Ambulate Ambulation Observation IP General Gait No Deviations/Normal Pattern Observation Ambulation Distance 150 (feet) Ambulation Assistive Rolling Walker Device Ambulation Ability Supervision/Stand by Balance Ability to Arise Able, uses arms to help Sitting Balance Steady, safe Standing Balance Steady, wide stance Dynamic Standing Good Balance Ability Transfers Bed Transfer Ability Independent Chair Transfer Independent Ability Sit to Stand Bed Independent Transfer Ability Sit to Stand Chair Independent Transfer Ability Rehab PT IP prob,goals,plan Problems Date of Evaluation: 02/03/25 Discharge Plan PT Discharge Plan Pt is currently appropriate to return home once medically stable for d/c. No current need for acute skilled therapy services. Eval Complexity Eval Charge Codes 81448 - High Complexity PHYSICIAN CERTIFICATION: I certify the specified therapy services for Meri Cole are required, authorized, and reviewed every 30 days.
--- NOTE | 2025-02-03 11:54 | SW/DCPLANNER ---
Spoke with patient about transportation and if she would be interested in using [facility] instead of waiting for her ride to get here till after 3. Patient stated that she would love to use it but does not have her apartment flower to get in and that her ride has her apartment flower. Thai DONIS [employer]
[2025-02-03 12:00] VITALS: PULSE 80
--- NOTE | 2025-02-03 14:19 | SW/DCPLANNER ---
Addendum entered by Abbey Espinosa 02/03/25 15:09: [facility] is going to accept patient. It might be or Saturday before they can get out to her home. Thai Lofton Addendum entered by Abbey Espinosa 02/03/25 14:28: Faxed patient's information to [facility]. Waiting to hear back from [facility] and will update once i hear back from [facility]. Thai Lofton Original Note: Patient expressed an interest in home health services (no preference) for medication mgt, pt and ot. Patient stated that if home health services are unable to be set up due to insurance then she would prefer to return to [facility] for outpatient services. CM will attempt to set up home health services.
--- NOTE | 2025-02-03 18:14 | EXP.DC.SUM ---
General Admission date:: 01/31/25 Discharge date: 02/03/25 Exam Data for Last 24 hours Vital signs and Labs for Last 24 Hours: Temp Pulse Resp BP Pulse Ox O2 Del Method 98.3 F 80 16 112/74 99 Room Air 02/03/25 08:00 02/03/25 12:00 02/03/25 08:00 02/03/25 08:00 02/03/25 08:00 02/03/25 15:05 DS: Diagnosis Discharge Diagnosis (1) Pulmonary embolism: Status: Acute Code(s): I26.99 - Other pulmonary embolism without acute cor pulmonale Qualifiers: Pulmonary embolism type: other Chronicity: acute Acute cor pulmonale presence: with acute cor pulmonale Qualified Code(s): I26.09 - Other pulmonary embolism with acute cor pulmonale (2) Diarrhea: Status: Acute Code(s): R19.7 - Diarrhea, unspecified Qualifiers: Diarrhea type: presumed infectious Qualified Code(s): R19.7 - Diarrhea, unspecified (3) Acute hypokalemia: Status: Acute Code(s): E87.6 - Hypokalemia (4) Intraductal carcinoma of right breast: Status: Acute Code(s): D05.11 - Intraductal carcinoma in situ of right breast (5) Anxiety and depression: Status: Acute Code(s): F41.9 - Anxiety disorder, unspecified; F32.A - Depression, unspecified (6) GERD (gastroesophageal reflux disease): Status: Acute Code(s): K21.9 - Gastro-esophageal reflux disease without esophagitis (7) Hypertension: Status: Acute Code(s): I10 - Essential (primary) hypertension (8) Restless leg syndrome: Status: Acute Code(s): G25.81 - Restless legs syndrome Meds Home Medications and Allergies Home Medications ?Medication ?Instructions ?Recorded ?Confirmed ?Type abemaciclib 100 mg tablet 100 mg PO BID 01/31/25 01/31/25 History (Verzenio) atogepant 60 mg tablet (Qulipta) 60 mg PO DAILY 01/31/25 01/31/25 History duloxetine 30 mg capsule,delayed 30 mg PO DAILY 01/31/25 01/31/25 History release ergocalciferol (vitamin D2) 1,250 1,250 mcg PO WEEKLY 01/31/25 01/31/25 History mcg (50,000 unit) capsule exemestane 25 mg tablet 25 mg PO DAILY 01/31/25 01/31/25 History losartan 50 mg tablet 50 mg PO DAILY 01/31/25 01/31/25 History olanzapine 5 mg tablet 5 mg PO DAILY 01/31/25 01/31/25 History omeprazole 40 mg capsule,delayed 40 mg PO DAILY 01/31/25 01/31/25 History release ondansetron 8 mg disintegrating 8 mg PO TIDP PRN Nausea And 01/31/25 01/31/25 History tablet Vomiting oxybutynin chloride 5 mg 5 mg PO DAILY 01/31/25 01/31/25 History tablet,extended release 24 hr prochlorperazine maleate 10 mg 10 mg PO Q6HP PRN Nausea And 01/31/25 01/31/25 History tablet Vomiting rimegepant 75 mg disintegrating 75 mg PO DAILYP PRN Migraine 01/31/25 01/31/25 History tablet (Nurtec ODT) Headache ropinirole 0.25 mg tablet 0.25 mg PO HS 01/31/25 01/31/25 History tramadol 50 mg tablet 50 mg PO Q6HP PRN Moderate Pain 01/31/25 01/31/25 History (Scale Score 5-6) ubrogepant 100 mg tablet (Ubrelvy) 100 mg PO Q2H PRN migraine 01/31/25 01/31/25 History ciprofloxacin HCl 500 mg tablet 500 mg PO Q12H 5 days #10 tabs 02/03/25 Rx metronidazole 500 mg tablet 500 mg PO BID 5 days #10 tabs 02/03/25 Rx rivaroxaban 15 mg tablet (Xarelto) 15 mg PO BIDWMEAL 21 days #42 tabs 02/03/25 Rx New Prescriptions to Start Prescriptions: ciprofloxacin HCl Marcus,Irfan metronidazole Marcus,Irfan rivaroxaban [Xarelto] Marcus,Irfan Allergies Allergy/AdvReac Type Severity Reaction Status Date / Time amoxicillin Allergy Severe Hives Verified 02/03/25 13:52 cefazolin Allergy Severe Hives Verified 02/03/25 13:52 hydromorphone (From Dilaudid) Allergy Intermediate Rash Verified 01/31/25 00:01 morphine Allergy Mild Rash Verified 01/31/25 00:01 lactose Allergy Difficulty Verified 01/31/25 05:53 Swallowing tree nut Allergy Anaphylaxis Verified 01/31/25 04:03 Discharge Plan Disposition Patient Disposition: Home Health Service Condition: Fair Discharge Order Discharge Orders: Discharge Order (Routine); Ordered 02/03/25 Ordered By: Alvaro Velazquez Follow up Plan Follow up with: Teetee Hale APRN [Nurse Practitioner, Cardiology] - 02/10/25 2:15 pm Chetna Cedeno MD [Referring, Medical] - 02/09/25 2:40 pm Adryan Rowan MD [Staff Physician, Oncology] - 02/17/25 11:30 am Prescriptions/Medication Reconciliation: New Xarelto 15 mg Tablet 15 mg PO BIDWMEAL 21 Days Qty: 42 0RF ciprofloxacin HCl 500 mg tablet 500 mg PO Q12H 5 Days Qty: 10 0RF metronidazole 500 mg tablet 500 mg PO BID 5 Days Qty: 10 0RF Continued ondansetron 8 mg tablet,disintegrating 8 mg PO TIDP PRN (Reason: Nausea And Vomiting) ropinirole 0.25 mg tablet 0.25 mg PO HS Verzenio 100 mg tablet 100 mg PO BID Ubrelvy 100 mg tablet 100 mg PO Q2H PRN (Reason: migraine) Nurtec ODT 75 mg tablet,disintegrating 75 mg PO DAILYP PRN (Reason: Migraine Headache) olanzapine 5 mg Tablet 5 mg PO DAILY oxybutynin chloride 5 mg tablet extended release 24hr 5 mg PO DAILY losartan 50 mg tablet 50 mg PO DAILY omeprazole 40 mg capsule,delayed release(DR/EC) 40 mg PO DAILY exemestane 25 mg tablet 25 mg PO DAILY duloxetine 30 mg capsule,delayed release(DR/EC) 30 mg PO DAILY prochlorperazine maleate 10 mg Tablet 10 mg PO Q6HP PRN (Reason: Nausea And Vomiting) ergocalciferol (vitamin D2) 1,250 mcg (50,000 unit) capsule 1,250 mcg PO WEEKLY Qulipta 60 mg tablet 60 mg PO DAILY tramadol 50 mg Tablet 50 mg PO Q6HP PRN (Reason: Moderate Pain (Scale Score 5-6)) Discontinued dexamethasone 4 mg Tablet 8 mg PO DAILY Problem Reconciliation Problems Reviewed?: Yes Patient Discharge Instructions ACTIVITY: Continue current activity DIET: continue same diet Patient Instructions: DI for Dehydration -- Adult, DI for Pulmonary Embolism, DI for Hypokalemia, High-Potassium Diet Print Language: Divehi Providers Primary Care Provider: Provider,Referral Admit Provider: Benoit Ham Attending Provider: Benoit Ham
--- NOTE | 2025-02-05 11:02 | SW/DCPLANNER ---
Spoke with patient on the phone. Patient stated that she had a dizzy episode yesterday. Patient stated other than that she is okay. Patient stated that her new medicine was brought to her room on the day she was discharged. Patient stated that she is aware of her upcoming appointments. Patient stated that she has no concerns or questions at this time. Thai Lofton
== END 2025-02-03 15:47 | disposition home or self-care (01) | DRG 175 ==
LOC: ER 01-31 02:35 → 2ND 01-31 02:54
PROVIDERS: Internal Medicine; Internal Medicine Adolescent Medicine; Admitting Provider Student in an Organized Health Care Education/Training Program; Emergency Provider Emergency Medicine; Visit Provider Student in an Organized Health Care Education/Training Program
DX: I26.09 Other pulmonary embolism with acute cor pulmonale (principal); C77.9 Secondary and unspecified malignant neoplasm of lymph node, unspecified; K52.9 Noninfective gastroenteritis and colitis, unspecified; I26.94 Multiple subsegmental thrombotic pulmonary emboli without acute cor pulmonale; E87.6 Hypokalemia; I10 Essential (primary) hypertension; K21.9 Gastro-esophageal reflux disease without esophagitis; F41.9 Anxiety disorder, unspecified; F32.A Depression, unspecified; D05.11 Intraductal carcinoma in situ of right breast; G25.81 Restless legs syndrome; E83.39 Other disorders of phosphorus metabolism; Z92.3 Personal history of irradiation; Z92.21 Personal history of antineoplastic chemotherapy; Z90.11 Acquired absence of right breast and nipple; Z91.018 Allergy to other foods; Z88.5 Allergy status to narcotic agent; Z91.011 Allergy to milk products; Z79.899 Other long term (current) drug therapy
CPT/HCPCS: 36415; 71275; 74177; 80053; 81001; 82550; 82803; 83690; 83735; 83880; 84100; 84436; 84443; 84484; 85025; 85610; 87040; 87507; 93005; 93306; 93970; 97163; 97166; J1650; J2405; J2543; J3475; J3480; J7030; J7120; J8540; Q9967

== ENCOUNTER 2025-02-11 10:25 | Outpatient (CLI) | payer MEDICAID, SELFPAY ==
--- OUTSIDE RECORDS SUMMARY | 2024-12-14 11:09 | XMS_ITS | Encounter Summary ---
Author Organization [place] [address] Care Team Providers Care Deicer Repairer Electric Name Role Phone Chetna Cedeno MD Primary Care Provider [phone] Arlyn Schmidt MD Unavailable [phone] Tacho Echavarria MD Unavailable [phone] Matt Ulrich MD Unavailable [phone] Eze Brock Unavailable Annette Walker Unavailable [phone] Batool Celis MD Unavailable [phone] Reason for Visit * Physical Therapy (Routine) - Closed Specialty Diagnoses / Procedures Referred By Contac t Referred To Contact Physical Therapy Diagnoses Invasive ductal carcinoma of breast, female, right (HCC) Acquired lymphedema Matt Ulrich MD [address] [place] [address] Phone: tel: fax: Kylah Lawler PT Referral ID Status Reason Start Date Expiration Date V isits Requested Visits Authorized [id number] Closed Specialty Services Required 09/04/2024 01/18/2025 1 20 Encounter Details Date Type Department Care Team (Latest Contact Info) Description 12/14/2024 11:09 AM EDT - 12/14/2024 11:59 PM EDT Hospital Encounter [facility] Physical Therapy [address] [place] [address] Kylah Lawler, PT Discharge Disposition: Home or Self Care [...] from your doctor or pharmacy? Never 11/07/2023 [facility] Utilities Answer Date Recorded In [...] often do you attend chur ch or anabaptist services? 1 to 4 times per year 11/07/2023 Do you belong to any clubs o r organizations such as synagogue groups, unions, fraternal or athletic groups, or [...] Date Recorded PHQ-2 Total Score 5 07/07/2024 [facility] [place] of Occupat ional Health - Occupational Stress [...] any time in the past 12 m [facility], were you homeless or living in a correction (including now)? No 11/07/2023 [facility] IP Transportation Answer D ate Recorded [...] Author No 12/06/2022 2:08 PM EDT Macarena Marion, ZEINA * Is the person blind or does [...] mouth 2 times daily. 56 Tablet 4 02/04/2025 4:14 PM EDT 5 abemaciclib (VERZENIO) 50 mg [...] daily. for abdominal cramps 30 Capsule 4 fluticasone furoate-vilantero L (BREO ELLIPTA) 200-25 mcg/dose Inhl Disk with DeviceIndications :Mild intermittent asthma, unspecified whether complicated Inhale 1 Puff into the lungs daily. 1 Each 6 4 fluticasone propionate (FLONASE) 50 mcg/actuation Nasl [place], Suspension 1 [place] by Nasal route daily. 1 Each 11 [...] documented in this encounter Progress Notes * Kylah Lawler, PT - 12/14/2024 11:30 AM EDT Images from the original note were not included. Physical Therapy Lymphedema Progress Note 12/14/2024 NAME: El Cole : 1965 Visit # / Insurance: ([employer] ELIG EV, 20 VISITS, , ANTHEM IS SHOWING NOT ELIGIBLE AND [employer] IS SHOWING ANTHEM PRIMARY. PATIENT NEEDS TO GET THIS RESOLVED, [employer] Auth [id number] 12 Visits 09/25/24-10/25/24) [employer] Auth [id number] Date Ext 09/25/24-11/24/24 [employer] Auth [id number] PT Visits 11/19 - 12/19) Onset Date: 08/08/24 Diagnosis: Right JORDAN & UE & Chest Lymphedema Initial Eval Date: 09/25/24 Precautions: Hx CA Follow up: Mojgan, 01/26/25 Medication changes: None Reassessment Date: 12/19/24 FOTO Date: 12/19/24 Time in/Out: 1130/1229 Pain Scale: 7/10 right superior lateral chest area Subjective: Pt states that she has moved to [facility] - takes about an hour to get to PT so may be limited now on when she can come. Pt feels more relaxed since moving out of her daughter's house. Pump is working a little bit better but still not perfect Objective: Right JORDAN stretches prior to MLD [...] with instruction: Yes Additional comments: Manual Therapy: 59 min Total Timed Treatment: 59 min Total Treatment Time: 59 min Charges: MT x 4 Assessment: Right shld abd still tight. Pt will hopefully be able to stop PT soon & con't with her home pump Plan: Con't PT for therex & manual therapy. Kylah Lawler, PT 12/14/2024 documented in this encounter Plan of Treatment Upcoming Encounters Date Type Department Care Team (Late st Contact Info) Description 03/02/2025 11:40 AM EDT Office Visit [facility] [address] [place] [address] [place] [address] [place] [address] 03/02/2025 12:45 PM EDT Procedure visit [facility] [address] [place] [address] Samm Ledesma, CONTACT CENTER SPECIALIST [address] [facility] [address] [place] [address] 03/10/2025 12:30 PM EDT Appointment [facility] [place], [place] [phone] 03/10/2025 1:00 PM EDT Appointment [facility] [place] [address] Tacho Echavarria MD [address] [place] [phone] 04/29/2025 9:15 AM EDT Appointment [facility] [place] [address] Batool Celis MD [address] [place] [address] 05/19/2025 2:15 PM EST Office Visit [address] [place] [address] Sin Tran MD [address] [place] [address] 08/12/2025 10:40 AM EST Appointment [facility] Women's Wellness [facility] [place] [address] Matt Ulrich MD [address] [place] [address] documented as of this encounter Goals Goal Patient Goal Type Associated Problems Recent Progress Patient-Stated? Author Blood Pressure < 140/90 Blood Pressure 121/77(02/04 2:04 PM EDT) No Chetna Cedeno MD Breast Health Breast Health On track(2024 11:27 AM EDT) No Jasmin Porter RN Note: Patient acknowledges understanding of new diagnosis, plan of care, available resources and how to contact Nurse Navigator with any future questions or concerns. Breast Health Breast Health Not on track(2024 11:27 AM EDT) Jasmin Rodriguez RN Note: Patient will be [...] documented as of this encounter Care Teams Deicer Repairer Electric Relationship Specialty Start [place] [address] [place] [address] PCP - General 06/21/10 Arlyn Schmidt MD [address] [place], [place] [phone] Consulting Physician Internal Medicine-Endocrinology, Diabetes & Metabolism 11/28/20 Tacho Echavarria MD 1 [place] [address] Internal Medicine-Medical Oncology 11/12/23 Matt Ulrich MD 1 [place], [place] [phone] Surgery-Surgical Oncology 12/04/23 Eze Brock Pastoral Care 12/13/23 Annette Walker MSW Licensed Sales Producer 05/13/24 Batool Celis MD [address] [place] [address] [place] [address] Radiation Oncologist Radiology-Radiation Oncology 06/08/24 documented as of this encounter
--- OUTSIDE RECORDS SUMMARY | 2025-01-02 16:26 | XMS_ITS | Encounter Summary ---
Author Organization [facility] Address [facility] [place] [address] Phone Care Team Providers Care Fall Internship Name Role Phone Chetna Cedeno MD Primary Care Provider [phone] Reason for Visit * Reason Comments Heat Exposure Patient arrives via EMS from an event outside, states she was in [facility] and felt lightheaded, went to a [...] EDT - 01/02/2025 7:27 PM EDT Emergency [facility] Emergency Department [address] [place] [id number] [place] [address] [place] [address] Heat exhaustion, unspecified, initial encounter [T67.5XXA] Discharge [...] Care Everywhere. * POTASSIUM CONTENT OF FOODS (JAPANESE) documented in this encounter Medications at Time [...] directed to the Care Management Departments: [facility] [phone] or [facility] [phone] or [facility] [phone]. documented in this encounter ED Notes * Dallin Espinoza MD - 01/02/2025 4:48 PM EDT Images from the original note were not included. [facility] EMERGENCY DEPARTMENT ED Encounter Arrival Date: 01/02/251624 Meri Cole : 1965 [address] [place] [address] CSN: [id number] GIO: [id number] EMERGENCY DEPARTMENT - GENERAL NOTE CHIEF COMPLAINT Chief Complaint Patient presents with Heat Exposure Patient arrives via EMS from an event outside, states she was in [facility] and felt lightheaded,went to a tent [...] Resource Strain: Low Risk (07/07/2024) Received from [facility] Overall Financial Resource Strain (CARDIA) Difficulty of Paying Living Expenses: Not very hard Food Insecurity: No Food Insecurity (07/07/2024) Received from [facility] Hunger Vital Sign Worried About Running Out of Food in the Last Year: Never true Ran Out of Food in the Last Year: Never true Transportation Needs: No Transportation Needs (07/07/2024) Received from [facility] IP Transportation In the past 12 months, has lack of reliable transportation kept you from medical appointments, meetings, work or from getting things needed for daily living?: No Physical Activity: Insufficiently Active (07/07/2024) Received from [facility] Exercise Vital Sign Days of Exercise per Week: 3 days Minutes of Exercise per Session: 40 min Stress: Stress Concern Present (07/07/2024) Received from [facility] [employer] [place] [employer] Occupational [employer] - Occupational Stress Questionnaire Feeling of Stress : Rather much Social Connections: Socially Isolated (11/07/2023) Received from [facility] Social Connection and Isolation Panel [NHANES] Frequency of Communication with Friends and Family: Once a week Frequency of Social Gatherings with Friends and Family: Once a week Attends Evangelical Services: 1 to 4 times per year Active Member of Clubs or Organizations: No Attends Club or Organization Meetings: Never Marital Status: Never Housing Stability: High Risk (11/07/2023) Received from [facility] Housing Stability Vital Sign Unable to [...] 428 ms QTcF 417 ms QRS Horizontal [place] -19 deg QRS AXIS 16 deg I-40 Horizontal [place] 46 deg I-40 FRONT AXIS -17 deg T-40 Horizontal [place] -50 deg T-40 Front [place] 51 deg T Horizontal [place] 52 deg T WAVE AXIS 16 deg S-T Horizontal [place] 60 deg S-T Front [place] 24 deg ECG IMPRESSION - BORDERLINE ECG - ECG IMPRESSION SR-Sinus rhythm-normal P axis, V-rate 50-99 ECG IMPRESSION LVHVP-Probable left ventricular hypertrophy-multiple LVH criteria ECGGUID [id number] CBC w/ Diff Collection Time: 01/02/25 5:13 [...] an event outside, states she was in [facility] and felt lightheaded,went to a tent [...] out of the sun in the heat. [place] dizzy lightheaded. Does feel slightly better after [...] Chetna Cedeno MD Family Medicine As needed [facility] [place] [address] [place] [address] Please note that some or all of this record was generated using voice recognition software. If there are any questions about the content of this document, please contact the author as some errors in processing associate may have occurred. Dallin Espinoza MD 01/02/25 1837 Dallin Espinoza MD 01/02/25 1848 * Rylie Darby Registered Nurse - 01/02/2025 4:30 PM EDT Triage Note Meri Cole presents to [facility] with complaint(s) of Heat Exposure (Patient arrives via EMS froman event outside, states she was in [facility] and felt lightheaded, went to a [...] (ABNORMAL) BAMP (Na,K,Cl,CO2,Glu,BUN,Creat,Ca) (01/02/2025 5:13 PM EDT) [facility] BLD UREA NITROGEN 16 8 - 26 mg/dL [facility] [place] SODIUM 140 135 - 145 mmol/L [facility] [place] POTASSIUM 3.2(L) 3.6 - 5.1 mmol/L [facility] [place] CHLORIDE 107 98 - 111 mmol/L [facility] [place] CO2 20(L) 21 - 31 mmol/L [facility] [place] GLUCOSE, RANDOM 89 70 - 99 mg/dL [facility] [place] CREATININE 1.06 0.60 - 1.20 mg/dL [facility] [place] ANION GAP 13 4 - 16 mmol/L [facility] [place] CALCIUM 9.0 8.5 - 10.4 mg/dL [facility] [place] ESTIMATED GFR 61 >59 mL/min/1.7 3 m2 [facility] [place] Comment: Estimated GFR was calculated using the CKD-EPI cr (2020) equation refit without race. The equation is recommended by the National Kidney Foundation - [place] Society of Nephrology Task Force. Tested at [address] [address] Whole Blood 01/02/2025 5:13 PM EDT 01/02/2025 5:25 PM EDT Dallin Espinoza MD LAB BLOOD ORDERABLES Final Result [facility] [address] [place] [address] [address] * (ABNORMAL) CBC w/ Diff (01/02/2025 5:13 PM EDT) [facility] WBC 7.1 3.6 - 10.5 THOU/mcL [place] [place] RBC 3.75(L) 3.80 - 5.20 MIL/mcL [facility] [place] HEMOGLOBIN 11.2(L) 12.0 - 15.2 g/dL [facility] [place] HEMATOCRIT 33.6(L) 36 - 46 % [facility] [place] MCV 89.6 82 - 97 fL [facility] [place] MCH 30.0 27 - 33 pg [facility] [place] MCHC 33.5 32 - 36 g/dL [facility] [place] RDW 16.0 12.3 - 17.0 % [facility] [place] PLATELET 206 140 - 375 THOU/mcL [facility] [place] MPV 6.9(L) 7.0 - 11.5 fL [facility] [place] ABS. NEUTROPHIL 3.60 1.80 - 7.70 THOU/mcL [facility] [place] ABS LYMPHS 3.00 1.00 - 4.00 THOU/mcL [facility] [place] ABS MONOS 0.30 0.20 - 0.90 THOU/mcL [facility] [place] ABS EOS 0.10 0.03 - 0.45 THOU/mcL [facility] [place] ABS BASOS 0.10 0.00 - 0.20 THOU/mcL [facility] [place] SEGS 51 % [facility] [place] LYMPHOCYTES 43 % CHEMISTR Y [place]TH MONOCYTES 4 % [facility] [place] EOSINOPHIL 1 % [facility] [place] BASOPHILS 1 % [facility] [place] Comment:Tested at [facility] [id number] [place] [address] Whole Blood 01/02/2025 5:13 PM EDT 01/02/2025 5:25 PM EDT Dallin Espinoza MD LAB BLOOD ORDERABLES Final Result [facility] [address] [place] [address] [address] * ECG 12 lead (01/02/2025 4:37 PM [...] QTcF 417 ms TH TRACEMASTER QRS Horizontal [place] -19 deg TH TRACEMASTER QRS AXIS 16 deg TH TRACEMASTER I-40 Horizontal [place] 46 deg TH TRACEMASTER I-40 FRONT AXIS -17 deg TH TRACEMASTER T-40 Horizontal [place] -50 deg TH TRACEMASTER T-40 Front [place] 51 deg TH TRACEMASTER T Horizontal [place] 52 deg TH TRACEMASTER T WAVE AXIS 16 deg TH TRACEMASTER S-T Horizontal [place] 60 deg TH TRACEMASTER S-T Front [place] 24 deg TH TRACEMASTER ECG IMPRESSION - BORDERLINE ECG - TH TRACEMASTER ECG IMPRESSION SR-Sinus rhythm-normal P axis, V-rate 50-99 TH TRACEMASTER ECG IMPRESSION LVHVP-Probable left ventricular hypertrophy-mul tiple LVH criteria TH TRACEMASTER ECGGUID [id number] TH TRACEMASTER 01/02/2025 4:37 PM EDT Dallin [...] Raymundo) documented in this encounter Care Teams Fall Internship Relationship Specialty Start Date End Date Chetna Cedeno MD [facility] [address] [place] [address] PCP - General Family Medicine 01/02/25 documented as of this encounter
--- OUTSIDE RECORDS SUMMARY | 2025-01-06 12:56 | XMS_ITS | Encounter Summary ---
Author Organization [place] [address] Care Team Providers Care Billet Heater Operator Name Role Phone Chetna Cedeno MD Primary Care Provider [phone] Arlyn Schmidt MD Unavailable [phone] Tacho Echavarria MD Unavailable [phone] Matt Ulrich MD Unavailable [phone] Eze Brock Unavailable Annette Walker Unavailable [phone] Batool Celis MD Unavailable [phone] Encounter Details Date Type Department Care Team (Latest Contact Info) Description 01/06/2025 12:56 PM EDT - 01/06/2025 1:13 PM EDT Hospital Encounter [facility] [place], [place] [id number] Tacho Echavarria MD [address] [place] [address] [id number] Invasive ductal carcinoma of breast, female, right [...] from your doctor or pharmacy? Never 11/07/2023 [facility] Utilities Answer Date Recorded In the [...] often do you attend chur ch or methodist services? 1 to 4 times per year 11/07/2023 Do you belong to any clubs o r organizations such as christianity groups, unions, fraternal or athletic groups, or [...] Date Recorded PHQ-2 Total Score 5 07/07/2024 [facility] of Occupat ional Health - Occupational [...] time in the past 12 m [facility], were you homeless or living in a skilled nursing (including now)? No 11/07/2023 [facility] IP Transportation Answer D ate Recorded [...] 4 fluticasone propionate (FLONASE) 50 mcg/actuation Nasl [place], Suspension 1 [place] by Nasal route daily. 1 Each 11 [...] 11:40 AM EDT Office Visit [facility] [address] [place] [address] [place] [address] [place] [address] 03/02/2025 12:45 PM EDT Procedure visit [facility] [address] [facility] [address] [place] [address] Samm Ledesma APRN [address] [facility] [address] [place] [address] 03/10/2025 12:30 PM EDT Appointment [place] [address] 03/10/2025 1:00 PM EDT Appointment [facility] Medical Oncology [place], [place] [phone] Tacho Echavarria MD [address] [place] [address] [phone] 04/29/2025 9:15 AM EDT Appointment [facility] RAD ONC [place], [place] [phone] Batool Celis MD [address] [place] [address] CANCER CARE [place], [place] [phone] 05/19/2025 2:15 PM EST Office Visit [address] [address] Sin Tran MD [address] [place] [address] 08/12/2025 10:40 AM EST Appointment [facility] [place] [address] Matt Ulrich MD [address] [place], [place] [id number] documented as of this encounter Goals Goal [...] PRN, Starting on Sat01/06/25 at 1258, Until Sat01/07/25 at 0413, Line [facility], For initial access [...] documented as of this encounter Care Teams Billet Heater Operator Relationship Specialty [place] [address] [place] [address] PCP - General 06/21/10 Arlyn Schmidt MD [address] [place], [place] 1450011 Consulting Physician Internal Medicine-Endocrinology, Diabetes & Metabolism 11/28/20 Tacho Echavarria MD [address] [place] [address] Internal Medicine-Medical Oncology 11/12/23 Matt Ulrich MD 1 [place] [address] Surgery-Surgical Oncology 12/04/23 Eze Brock Pastoral Care 12/13/23 Annette Walker, ARACELI Nibbler Operator 05/13/24 Batool Celis MD 1 [facility] [place] [address] Radiation Oncologist Radiology-Radiation Oncology 06/08/24 documented as of this encounter
--- OUTSIDE RECORDS SUMMARY | 2025-01-06 13:14 | XMS_ITS | Encounter Summary ---
Author Organization [place] [address] Care Team Providers Care Email Specialist Name Role Phone Chetna Cedeno MD Primary Care Provider [phone] Arlyn Schmidt MD Unavailable [phone] Tacho Echavarria MD Unavailable [phone] Matt Ulrich MD Unavailable [phone] Eze Brock Unavailable Annette Walker Unavailable [phone] Batool Celis MD Unavailable [phone] Reason for Visit * Reason Comments Follow-up Breast Cancer Encounter Details Date Type Department Care Team (Latest Contact Info) Description 01/06/2025 1:14 PM EDT - 01/06/2025 11:59 PM EDT Hospital Encounter [place] [address] Tacho Echavarria MD [address] [place] [address] [id number] Invasive ductal carcinoma of breast, female, right [...] your doctor or pharmacy? Never 11/07/2023 [facility] Utilities Answer Date Recorded In the past [...] often do you attend chur ch or sabianist services? 1 to 4 times per year 11/07/2023 Do you belong to any clubs o r organizations such as denominational groups, unions, fraternal or athletic groups, or [...] Date Recorded PHQ-2 Total Score 5 07/07/2024 [facility] Nucla of Occupat ional Health - Occupational Stress [...] any time in the past 12 [facility], were you homeless or living in a senior care (including now)? No 11/07/2023 [facility] IP Transportation Answer D ate [...] 4 fluticasone propionate (FLONASE) 50 mcg/actuation Nasl [place], Suspension 1 [place] by Nasal route daily. 1 Each 4 Inhalational Spacing Device (AEROCHAMBER MV) Misc Spacer 1 Each by [facility].(Non-Drug; Combo Route) route as needed. 1 Device [...] were not included. Patient: El Cole CSN: [id number] Date of : 1965 Age: 59 y.o. Date of Service: 01/06/2025 HEMATOLOGY/ONCOLOGY FOLLOW UP VISIT Primary Rail Specialist & Oncologist: Tacho Echavarria MD. Patient Care Team: Chetna Cedeno MD as PCP - General Arlyn Schmidt MD as Consulting Physician (Internal Medicine-Endocrinology, Diabetes & Metabolism) Tacho Echavarria MD (Internal Medicine-Medical Oncology) Matt Ulrich MD (Surgery-Surgical Oncology) Eze Brock as Pastoral Care Annette Walker MSW as Spar Machine Operator Helper Batool Celis MD as Radiation Oncologist (Radiology-Radiation Oncology) 2nd OPINION [facility] EVAL: [place], [place]: Dr Beata Kebede: [phone] Next of Kin: Daughter Ruthy Man ([phone]) Patient Contact info: [phone] DIAGNOSIS HISTORY DATE OF INITIAL CONSULTATION: 11/14/23; outside 2nd opinion at on 09/23/2024 CURRENT TREATMENT BREAST CA: adjuvant Phelps-E regimen: Arimidex 1mg po daily + dose [...] to GI tolerance for 2 yr planned (Phelps-E regimen) Stage Clinical Stage IIIB (cT3, cN3a(f), [...] CalcPt Dosage Given to Date in Gy [id number] Session Dosage Given in Gy [id number] Reference Point ID LN Boost RP Dosage Given to Date in Gy 10 Session Dosage Given in Gy 1.71477226 Reference Point ID [id number] ISO Dosage Given to Date in Gy 40.72687406 Session Dosage Given in Gy [id number] Plan ID Nd Boost Plan Name Nd [...] GASTRECTOMY ; Surgeon: Marcus Perez MD; Location: [facility] MAIN OR; Service: General IR 2 [...] SACRAL SINGLE LVL 08/03/2022 Sin Tran MD [facility] SPINE CTR IMAGING IR PORT PLACEMENT EQUAL OR > 5 YEARS 11/29/2023 IR PORT PLACEMENT EQUAL OR > 5 YEARS 11/29/2023 Joselito Goodwin MD [facility] IR LUMBAR DISC SURGERY 09/11/2012 LUMBAR LAMINECTOMY & DISCECTOMY L4-5 LEFT ; Surgeon: Hetal Borden MD; MASTECTOMY Right 07/06/2024 Right modified radical mastectomy; Surgeon: Matt Ulrich MD; Location: [facility] MAIN OR; Service:General SPINE SURGERY N/A 01/04/2021 PAIN PUMP PERMANENT IMPLANT; Surgeon: Munir Hilton MD; Location: [facility] MAIN OR; Service: Pain Management THORACIC SPINE SURGERY N/A 02/24/2020 SPINAL CORD STIMULATOR IMPLANT; Surgeon: Munir Hilton MD; Location: [facility] OR; Service: Pain Management TONSILLECTOMY UPPER GASTROINTESTINAL ENDOSCOPY UPPER GASTROINTESTINAL ENDOSCOPY N/A 01/26/2015 ESOPHAGOGASTRODUODENOSCOPY with biopsy and davis dilation; Surgeon: Stone Cronin MD; Location: [facility]; Service: Endoscopy FAMILY HISTORY Family History [...] having completed adjuvant Radiation, while on the [place]- adjuvant therapy treatment approach. Update (01/06/2025): Ms [...] Device fluticasone propionate (FLONASE) 50 mcg/actuation Nasl [place], Suspension Inhalational Spacing Device (AEROCHAMBER MV) Misc [...] Gran% 0.2 % Lymph Percent 28.1 % [place] Percent 4.3 % Eos Percent 1.8 % Baso Percent 0.4 % Neut # 3.3 1.6 - 6.1 x10(3)/mcL IMMGRAN# 0.0 0.0 - 0.1 x10(3)/mcL Lymph # 1.4 1.2 - 3.9 x10(3)/mcL [place] # 0.2 (L) 0.3 - 0.9 x10(3)/mcL [...] G43.719-Chronic migraine without aura, intractable, without status [id number]. COMPARISON: Multiple priors with the latest MRI [...] Performing Provider Shaylee Roque???LOUIE Restrepo CRNA, RN Fisheries Inspector Madelyn Sidhu RN Endoscopy Nurse Aliya Friedman [...] outside facility Neurosurgeon (Dr Benoit Duke at [facility]) and no need for surgical [...] Tacho Echavarria MD Hematology and Medical Oncology [facility] [phone] *This note was dictated using voice recognition [...] also performed on this calendar day: d/w Construction Job Cost Estimator about her care and symptom burden/depression documented in this encounter Plan of Treatment Upcoming Encounters Date Type Department Care Team (Late st Contact Info) Description 03/02/2025 11:40 AM EDT Office Visit [facility] [place] [facility] [address] [place] [address] [place] [address] [place] [address] 03/02/2025 12:45 PM EDT Procedure visit [facility] [address] [place] [address] S[address] Ledesma, DESTATICIZER FEEDER [address] [place] [address] 03/10/2025 12:30 PM EDT Appointment [facility] [place], [place] [phone] 03/10/2025 1:00 PM EDT Appointment [place] [address] Tacho Echavarria MD [address] [place] [address] [phone] 04/29/2025 9:15 AM EDT Appointment [place] [place] [address] Batool Celis MD [address] [place] [address] [place] [address] 05/19/2025 2:15 PM EST Office Visit [facility] [address] [place] [address] Sin Tran MD [address] [place] [address] 08/12/2025 10:40 AM EST Appointment [facility] [place] [address] Matt Ulrich MD [address] [place] [address] [place] [address] documented as of this encounter Goals Goal Patient Goal Type Associated Problems Recent Progress Patient-Stated? Author Blood Pressure < 140/90 Blood Pressure 121/77(02/04 2:04 PM EDT) No Chetna Cedeno MD Breast [facility] Breast Health On track(2024 11:27 AM EDT) No Jasmin Porter, RAUL Note: Patient acknowledges understanding of new diagnosis, plan of care, available resources and how to contact Nurse Navigator with any future questions or concerns. Breast [facility] Breast Health Not on track(2024 11:27 [...] MISC COMMENT Tiago 01/07/2025 7:35 AM EDT [facility] Blood VENOUS STRUCTURE / Unknown Port / Unknown 01/06/2025 1:13 PM EDT 01/07/2025 7:31 AM EDT us Tacho Echavarria MD HEMATOLOGY ORDERABLES Final Result Performing Organization Address [facility]/ZIP Co de Phone Number [facility] [address] [place] [address] * IRON+TIBC (01/06/2025 1:13 PM EDT) Pathologist [facility] Iron 78 30 - 160 mcg/dL 01/06/2025 [...] CHEMISTRY ORDERABLES Final Result Performing Organization Address City/[facility]/ZIP Co de Phone Number [facility] [address] [facility], [place] [address] * VITAMIN B12/ FOLIC ACID (01/06/2025 1:13 PM EDT) Vitamin B12 305 232 - 1,245 pg/mL 01/06/2025 2:55 PM EDT [facility] [employer] [facility] Folate 15.80 >=4.80 ng/mL 01/06/2025 2:55 PM EDT [facility] [employer] [facility] Blood VENOUS STRUCTURE / Unknown Port / Unknown 01/06/2025 1:13 PM EDT 01/06/2025 1:17 PM EDT Narrative [facility] - 01/06/2025 2:55 PM EDT Ingestion of haroon doses of biotin (>5 mg/day) taken within 8 hours of drawing blood sample can interfere with this immunoassay test. [facility] Radha Echavarria MD CHEMISTRY ORDERABLES Final Result [facility] [employer] [facility] [address] [facility] , [place] [address] * (ABNORMAL) COMPREHENSIVE METABOLIC PANEL (01/06/2025 1:13 PM EDT) Sodium 140 136 - 145 mmol/L 01/06/2025 1:37 PM EDT [facility] Potassium 3.8 3.5 - 5.0 mmol/L 01/06/2025 1:37 PM EDT [facility] Chloride 108(H) 98 - 107 mmol/L 01/06/2025 1:37 PM EDT [facility] Total CO2 22 22 - 29 mmol/L 01/06/2025 1:37 PM EDT [facility] Anion Gap 10 7 - 16 mmol/L 01/06/2025 1:37 PM EDT [facility] Calcium 9.2 8.6 - 10.4 mg/dL 01/06/2025 1:37 PM EDT [facility] Glucose Lvl 121(H) 70 - 99 mg/dL 01/06/2025 1:37 PM EDT [facility] BUN 16 6 - 20 mg/dL 01/06/2025 1:37 PM EDT [facility] Creatinine 0.83 0.51 - 1.30 mg/dL 01/06/2025 1:37 PM EDT [facility] Albumin 4.0 3.5 - 5.2 gm/dL 01/06/2025 1:37 PM EDT [facility] Total Protein 6.6 6.4 - 8.3 gm/dL 01/06/2025 1:37 PM EDT [facility] Bili Total 0.4 0.2 - 1.3 mg/dL 01/06/2025 1:37 PM EDT [facility] ALT 9 <=41 U/L 01/06/2025 1:37 PM EDT [facility] AST 14 <=40 U/L 01/06/2025 1:37 PM EDT [facility] Alk Phos 127(H) 36 - 123 U/L 01/06/2025 1:37 PM EDT [facility] eGFR (CKD-EPIcr 2020) 82 >=60 mL/min/1.7 3 m2 01/06/2025 1:37 PM EDT [facility] Comment:Estimated GFR was ca lculated using the CKD-EPIcr (2020) equation refit without race. The equation is recommended by the National Kidney Foundation - [place] Society of Nephrology Task Force. Blood VENOUS STRUCTURE / Unknown Port / Unknown 01/06/2025 1:13 PM EDT 01/06/2025 1:17 PM EDT Tacho Echavarria MD CHEMISTRY ORDERABLES Final Result [facility] [address] [place] [address] * (ABNORMAL) CBC WITH DIFF (01/06/2025 1:13 PM EDT) WBC 5.1 3.7 - 10.3 x10(3)/mc L 01/06/2025 1:22 PM EDT [facility] RBC 3.61(L) 3.90 - 5.20 x10(6)/mc L 01/06/2025 1:22 PM EDT [facility] Hgb 11.0(L) 11.2 - 15.7 g/dL 01/06/2025 1:22 PM EDT [facility] Hct 33.2(L) 34.0 - 45.0 % 01/06/2025 1:22 PM EDT [facility] MCV 92.0 80.0 - 100.0 fL 01/06/2025 1:22 PM EDT [facility] MCH 30.5 26.0 - 34.0 pg 01/06/2025 1:22 PM EDT [facility] MCHC 33.1 30.7 - 35.5 g/dL 01/06/2025 1:22 PM EDT [facility] RDW 14.5 <=14.9 % 01/06/2025 1:22 PM EDT [facility] Platelet 170 155 - 369 x10(3)/mc L 01/06/2025 1:22 PM EDT [facility] MPV 8.8 8.8 - 12.5 fL 01/06/2025 1:22 PM EDT [facility] Neut # Prelim 3.3 1.6 - 6.1 x10(3)/mc L 01/06/2025 1:22 PM EDT [facility] Comment:Preliminary automate d absolute neutrophil count. Value may change if manual differential is indicated. Neut Percent 65.2 % 01/06/2025 1:22 PM EDT [facility] Comment:Neutrophils equals s egs plus bands Imm Gran% 0.2 % 01/06/2025 1:22 PM EDT [facility] Comment:Automated count of m etamyelocytes, myelocytes and promyelocytes. Lymph Percent 28.1 % 01/06/2025 1:22 PM EDT [facility] [place] Percent 4.3 % 01/06/2025 1:22 PM EDT [facility] Eos Percent 1.8 % 01/06/2025 1:22 PM EDT [facility] Baso Percent 0.4 % 01/06/2025 1:22 PM EDT [facility] Neut # 3.3 1.6 - 6.1 x10(3)/mc L 01/06/2025 1:22 PM EDT [facility] Comment:Neutrophils equals s egs plus bands IMMGRAN# 0.0 0.0 - 0.1 x10(3)/mc L 01/06/2025 1:22 PM EDT [facility] Comment:Automated count of m etamyelocytes, myelocytes and promyelocytes. An absolute IG <0.1 is reported as 0.0. Lymph # 1.4 1.2 - 3.9 x10(3)/mc L 01/06/2025 1:22 PM EDT [facility] [place] # 0.2(L) 0.3 - 0.9 x10(3)/mc L 01/06/2025 1:22 PM EDT [facility] Eos# 0.1 0.0 - 0.5 x10(3)/mc L 01/06/2025 1:22 PM EDT [facility] Baso # 0.0 0.0 - 0.1 x10(3)/mc L 01/06/2025 1:22 PM EDT [facility] Blood VENOUS STRUCTURE / Unknown Port / Unknown 01/06/2025 1:13 PM EDT 01/06/2025 1:17 PM EDT us Tacho Echavarria MD HEMATOLOGY ORDERABLES Final Result [facility] 1 [place] [address] * MISCELLANEOUS LAB (01/06/2025 1:13 PM EDT) Pathologist [facility] COMMENT Tiago 01/07/2025 7:34 AM EDT [facility] Blood VENOUS STRUCTURE / Unknown Port / Unknown 01/06/2025 1:13 PM EDT 01/07/2025 7:31 AM EDT us Tacho Echavarria MD HEMATOLOGY ORDERABLES Final Result Performing Organization Address City/[facility]/ZIP Co de Phone Number [facility] [address] [place] [address] documented in this encounter Visit Diagnoses Diagnosis [...] documented as of this encounter Care Teams Email Specialist Relationship Specialty Start [place] [address] [place] [address] PCP - General 06/21/10 Arlyn Schmidt MD [facility] [address] [place] [address] Consulting Physician Internal Medicine-Endocrinology, Diabetes & Metabolism 11/28/20 Tacho Echavarria MD [address] [place] [address] Internal Medicine-Medical Oncology 11/12/23 Matt Ulrich MD [address] [place] [address] Surgery-Surgical Oncology 12/04/23 Eze Brock Pastoral Care 12/13/23 Annette Walker MSW Spar Machine Operator Helper 05/13/24 Batool Celis MD [address] [place] [address] [place] [address] Radiation Oncologist Radiology-Radiation Oncology 06/08/24 documented as of this encounter
--- OUTSIDE RECORDS SUMMARY | 2025-01-13 14:56 | XMS_ITS | Encounter Summary ---
Author Organization [place] [address] Care Team Providers Care Medical Education Manager Name Role Phone Chetna Cedeno MD Primary Care Provider [phone] Arlyn Schmidt MD Unavailable [phone] Tacho Echavarria MD Unavailable [phone] Matt Ulrich MD Unavailable [phone] Eze Brock Unavailable Annette Walker Unavailable [phone] Batool Celis MD Unavailable [phone] Reason for Visit * Physical Therapy (Emergency) - Closed Specialty Diagnoses / Procedures Referred By Contac t Referred To Contact Physical Therapy Diagnoses 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) Chemotherapy follow-up examination Malignant neoplasm of right female breast, unspecified estrogen receptor status, unspecified site of breast (HCC) Port-A-Cath in place Tacho Echavarria MD 1 [place] [address] Phone: tel: fax: Shaunna Workman PT Referral ID Status Reason Start Date Expiration Date V isits Requested Visits Authorized [id number] Closed Specialty Services Required 10/08/2024 01/28/202507 31 Encounter Details Date Type Department Care Team (Latest Contact Info) Description 01/13/2025 2:56 PM EDT - 01/13/2025 11:59 PM EDT Hospital Encounter [facility] Physical Therapy [address] [place] [address] Shaunna Workman PT Discharge Disposition: Home or [...] from your doctor or pharmacy? Never 11/07/2023 [facility] Utilities Answer Date Recorded In the [...] any clubs o r organizations such as episcopalian groups, unions, fraternal or athletic groups, or [...] Date Recorded PHQ-2 Total Score 5 07/07/2024 [facility] [place] of Occupat ional Health - Occupational Stress [...] time in the past 12 m [facility], were you homeless or living in a skilled nursing (including now)? No 11/07/2023 [facility] IP Transportation Answer D ate Recorded In [...] 4 fluticasone propionate (FLONASE) 50 mcg/actuation Nasl [place], Suspension 1 [place] by Nasal route daily. 1 Each 11 [...] to walk with no AD by then, [place] MS (but pt states that she was told this may have been a misdiagnosis), currently taking chemo pill, R mastectomy Jun 2024, radiation ended 09/25/24, chronic back issues with sciatica Physician: Jericho ESCOBAR Follow Up: 11/11/24 Evaluation Date: 10/30/24 Reassessment Due: 12/26/24 Primary Insurance: MEDICAID /[facility] [id number] [facility] Secondary Insurance: n/a Insurance Authorization: AMB REFERRAL TO PHYSICAL THERAPY Authorized (10/08/2024-01/28/2025) Visits Requested Visits Authorized Visits Completed Visits Scheduled -- Details Referral ID: [id number] Authorization Status Reason: Received Carrier Authorization Authorization Comments: -- Referred To: Shaunna Workman PT at [facility] PT Referred By: Tacho Echavarria MD at [facility] CANCER CTR MED ONC, [facility] [place] Creation Date: 10/08/2024 Referral Reasons: Specialty Services [...] other week Needs Assistance: No Understood: Yes clinical appeals auditor // bars with unilat UE support [] high marches x10B [] hamstring curls x10B clinical appeals auditor // bars with B UE support [] [...] deficits. pt verbalized understanding of this again. clinical appeals auditor // bars with unilat UE support [] [...] arm swing during gait [] NMR education clinical appeals auditor // bars with no support with gait [...] up about 2 days ago. Access Code: [email or web address] URL: [email or web address] Date: 11/11/2024 Prepared by: Romana Bowman Exercises [...] will be Independent with HEP to improve intermediate school teacher health and reduce risk for injury. indbut [...] increase from 727 feet with RW to 3525-7712 feet with LRAD to improve gait elisha [...] away. Treatments to consist of Therapeutic exercise 71518, Neuromuscular re-education 19598, Manual soft tissue and/or joint mobilization 97412, Patient education, Therapeutic activity 49442, and Gait training 97467. Electronically signed by: Signed: Shaunna Workman PT Date: 01/13/2025 documented in this encounter Plan of Treatment Upcoming Encounters Date Type Department Care Team (Late st Contact Info) Description 03/02/2025 11:40 AM EDT Office Visit [facility] [address] [place] [address] [place] [address] [place] [address] 03/02/2025 12:45 PM EDT Procedure visit [facility] [address] [place] [address] Samm Ledesma APRN [address] [place] [address] 03/10/2025 12:30 PM EDT Appointment [facility] [place] [address] 03/10/2025 1:00 PM EDT Appointment [facility] [place] [address] Tacho Echavarria MD [address] [place] [id number] 04/29/2025 9:15 AM EDT Appointment [facility] RAD ONC [place], [place] [phone] Batool Celis MD [address] [place] [address] [place] [address] 05/19/2025 2:15 PM EST Office Visit [address] [address] Sin Tran MD [address] [place] [address] 08/12/2025 10:[address] [facility] [place] [address] Matt Ulrich MD [address] [place], [place] [phone] documented as of this encounter Goals Goal [...] documented as of this encounter Care Teams Medical Education Manager Relationship Specialty [place] [address] [place] [address] PCP - General 06/21/10 Arlyn Schmidt MD [address] [place] [address] Consulting Physician Internal Medicine-Endocrinology, Diabetes & Metabolism 11/28/20 Tacho Echavarria MD 1 [place], [place] [phone] Internal Medicine-Medical Oncology 11/12/23 Matt Ulrich MD 1 [place], [place] [phone] Surgery-Surgical Oncology 12/04/23 Eze Brock Pastoral Care 12/13/23 Annette Walker MSW Information Engineer 05/13/24 Batool Celis MD 1 [facility] [place] [address] Radiation Oncologist Radiology-Radiation Oncology 06/08/24 documented as of this encounter
--- OUTSIDE RECORDS SUMMARY | 2025-01-15 11:55 | XMS_ITS | Encounter Summary ---
Author Organization [place] [address] Care Team Providers Care Air And Water Filler Name Role Phone Chetna Cedeno MD Primary Care Provider [phone] Arlyn Schmidt MD Unavailable [phone] Tacho Echavarria MD Unavailable [phone] Matt Ulrich MD Unavailable [phone] Eze Brock Unavailable Annette Walker Unavailable [phone] Batool Celis MD Unavailable [phone] Reason for Visit * Physical Therapy (Routine) - Closed Specialty Diagnoses / Procedures Referred By Contac t Referred To Contact Physical Therapy Diagnoses Invasive ductal carcinoma of breast, female, right (HCC) Acquired lymphedema Matt Ulrich MD [address] [facility] [address] [place] [address] Phone: tel: fax: Kylah Lawler PT Referral ID Status Reason Start Date Expiration Date V isits Requested Visits Authorized [id number] Closed Specialty Services Required 09/04/2024 01/18/2025 1 20 Encounter Details Date Type Department Care Team (Latest Contact Info) Description 01/15/2025 11:55 AM EDT - 01/15/2025 1:14 PM EDT Hospital Encounter [facility] Physical Therapy [address] [place] [address] Kylah Lawler, PT Discharge Disposition: Home or [...] from your doctor or pharmacy? Never 11/07/2023 [facility] Utilities Answer Date Recorded In the [...] any clubs o r organizations such as moravian groups, unions, fraternal or athletic groups, or [...] Date Recorded PHQ-2 Total Score 5 07/07/2024 [facility] [place] of Occupat ional Health - Occupational Stress [...] a senior care (including now)? No 11/07/2023 [facility] IP Transportation Answer D ate [...] 4 fluticasone propionate (FLONASE) 50 mcg/actuation Nasl [place], Suspension 1 [place] by Nasal route daily. 1 Each 11 [...] Cole : 1965 Visit # / Insurance: ([employer] ELIG EV, 20 VISITS, , ANTHEM IS SHOWING NOT ELIGIBLE AND [employer] IS SHOWING ANTHEM PRIMARY. PATIENT NEEDS TO GET THIS RESOLVED, [employer] Auth [id number] 12 Visits 09/25/24-10/25/24, [employer] Auth [id number] Date Ext 09/25/24-11/24/24 [employer] Auth [id number] DATE extended to 01/18) Onset Date: 08/08/24 [...] progression H/o issued Independent Independent Independent Met Long-Term Goals: (set for 6 weeks) Patient will demonstrate independence with compression application to decrease lymphedema progression Reviewed with pt Independent Independent Independent Met Patient will be independent with self MLD to decrease lymphedema progression H/o issued, referral to [facility] at [facility] for home pump Independent as able, waiting [...] AM EDT Office Visit [facility] [place] [facility] [address] [place] [address] [place] [address] [place] [address] 03/02/2025 12:45 PM EDT Procedure visit [facility] [address] [place] [address] Samm Ledesma, CUSTOMER COUNTER ASSOCIATE [address] [facility] [address] [address] [place] [address] 03/10/2025 12:30 PM EDT Appointment [facility] [place], [place] [id number] 03/10/2025 1:00 PM EDT Appointment [facility] [place], [place] [phone] Tacho Echavarria MD [address] [place] [id number] 04/29/2025 9:15 AM EDT Appointment [place] [address] Batool Celis MD [address] [place] [address] CANCER CARE [place], [place] [id number] 05/19/2025 2:15 PM EST Office Visit [facility] [address] [facility] [address] [place] [address] Sin Tran MD [address]00 [place] [address] 08/12/2025 10:40 AM EST Appointment [facility] Women's Wellness [facility] [place] [address] Matt Ulrich MD [address] [place] [address] [address] [place] [address] documented as of this encounter Goals Goal [...] documented as of this encounter Care Teams Air And Water Filler Relationship Specialty [place] [address] [place] [address] PCP - General 06/21/10 Arlyn Schmidt MD [address] [place] [address] Consulting Physician Internal Medicine-Endocrinology, Diabetes & Metabolism 11/28/20 Tacho Echavarria MD 1 [place] [address] Internal Medicine-Medical Oncology 11/12/23 Matt Ulrich MD 1 [facility] [place] [address] Surgery-Surgical Oncology 12/04/23 Eze Brock Pastoral Care 12/13/23 Annette Walker, [facility] Traffic Control Signaler 05/13/24 Batool Celis MD 1 [facility] [place] [address] Radiation Oncologist Radiology-Radiation Oncology 06/08/24 documented as of this encounter
--- OUTSIDE RECORDS SUMMARY | 2025-01-15 13:30 | XMS_ITS | Encounter Summary ---
Author Organization 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 Never 11/07/2023 [facility] Utilities Answer Date Recorded In the past 12 months has e [employer], gas, oil, or water [employer] threatened to shut off services in your [...] any clubs o r organizations such as rastafarian groups, unions, fraternal or athletic groups, or [...] Date Recorded PHQ-2 Total Score 5 07/07/2024 [facility] [place] of Occupat ional Health - Occupational Stress [...] any time in the past 12 m [facility], were you homeless or living in a group home (including now)? No 11/07/2023 [facility] IP Transportation Answer D ate [...] 4 fluticasone propionate (FLONASE) 50 mcg/actuation Nasl [place], Suspension 1 [place] by Nasal route daily. 1 Each 4 Inhalational Spacing Device (AEROCHAMBER MV) Misc Spacer 1 Each by [facility].(Non-Drug; Combo Route) route as needed. 1 Device [...] 11:40 AM EDT Office Visit [facility] [address] [place] [address] [place] [address] [place] [address] 03/02/2025 12:45 PM EDT Procedure visit [facility] [address] [place] [address] Samm Ledesma, [employer] 7[address] [facility] 100 [place] [address] 03/10/2025 12:30 PM EDT Appointment [facility] [place], [place] [phone] 03/10/2025 1:00 PM EDT Appointment [facility] [place] [address] Tacho Echavarria MD [address] [place] [address] [id number] 04/29/2025 9:15 AM EDT Appointment [facility] RAD ONC [place], [place] [phone] Batool Celis MD [address] [place] [address] [place] [address] 05/19/2025 2:15 PM EST Office Visit [facility] [address] [place] [address] Sin Tran MD [address] [place] [address] 08/12/2025 10:40 AM EST Appointment [facility] Women's Wellness [facility] [place] [address] Matt Ulrich MD [address] [place] [address] 254 [place], [place] [id number] documented as of this encounter Goals Goal [...] documented as of this encounter Care Teams Mussel Opener Relationship Specialty [place] [address] [place] [address] PCP - General 06/21/10 Arlyn Schmidt MD [address] [place] [address] Consulting Physician Internal Medicine-Endocrinology, Diabetes & Metabolism 11/28/20 Tacho Echavarria MD 1 [place] [address] Internal Medicine-Medical Oncology 11/12/23 Matt Ulrich MD 1 [place] [address] Surgery-Surgical Oncology 12/04/23 Eze Brock Pastoral Care 12/13/23 Annette Walker, FUEL OIL TRUCK DRIVER Auditing Manager 05/13/24 Batool Celis MD 1 [facility] [place] [address] Radiation Oncologist Radiology-Radiation Oncology 06/08/24 documented as of this encounter
--- OUTSIDE RECORDS SUMMARY | 2025-02-02 11:20 | XMS_ITS | Encounter Summary ---
Author [place] [address] Care Team Providers Care Ammunition Specialist Name Role Phone Chetna Cedeno MD Primary Care Provider [phone] Arlyn Schmidt MD Unavailable [phone] Tacho Echavarria MD Unavailable [phone] Matt Ulrich MD Unavailable [phone] Eze Brock Unavailable Annette Walker Unavailable [phone] Batool Celis MD Unavailable [phone] Encounter Details Date Type Department Care Team (Late st Contact Info) Description 02/02/2025 11:20 AM EDT Telemedicine [facility] NEUROLOGY [facility]ECTOR [address] [facility] [address] [place] [address] Samm Ledesma, CAN COVERER [address] [place] [address] Chronic migraine without aura, intractable, with status [...] any clubs o r organizations such as shinto groups, unions, fraternal or athletic groups, or [...] Date Recorded PHQ-2 Total Score 5 07/07/2024 [facility] of Occupat ional Health - [...] in the past 12 m [facility], were you homeless or living in a fpc (including now)? No 11/07/2023 [facility] follows with oncology and surgical oncology at [place]. She has had more numbness, tingling, pain [...] elevated potassium, diarrhea in the lungs at [facility]. Allergies: allergy list reviewed and accurate PMHx: [...] 6 fluticasone propionate (FLONASE) 50 mcg/actuation Nasl [place], Suspension 1 [place] by Nasal route daily. 1 Each 11 [...] level: High school graduate Occupational History Employer: [employer] Tobacco Use Smoking status: Never Passive exposure: [...] true Transportation Needs: No Transportation Needs (07/07/2024) [facility] IP Transportation In the past 12 months, has lack of reliable transportation kept you from medical appointments, meetings, work or from getting things needed for daily living?: No Physical Activity: Insufficiently Active (07/07/2024) Exercise Vital Sign Days of Exercise per Week: 3 days Minutes of Exercise per Session: 40 min Stress: Stress Concern Present (07/07/2024) [place] of Occupational Health - Occupational Stress Questionnaire Feeling of Stress : Rather much Social Connections: Socially Isolated (11/07/2023) Social Connection and Isolation Panel [NHANES] Frequency of Communication with Friends and Family: Once a week Frequency of Social Gatherings with Friends and Family: Once a week Attends Christian Services: 1 to 4 times per year Active Member of Clubs or Organizations: No Attends Club or Organization Meetings: Never Marital Status: Never Intimate Partner Violence: Not At Risk (11/07/2023) Humiliation, Afraid, Rape, and Kick questionnaire Fear of Current or Ex-Partner: No Emotionally Abused: No Physically Abused: No Sexually Abused: No Housing Stability: No Transportation Needs (02/24/2024) Received from [facility] Yearly Questionnaire Do you need [...] a video visit does not replace a gtqs-fq-fssc exam and further service may be necessary. I advised the patient that we are conducting his/her video visit through the office in a private space onour secure network and this video visit is being conducted in accordance with [facility] telehealth/video visit regulations. Patient had no [...] AM EDT Office Visit [facility] [address] [place] [address] [place] [address] [place] [address] 03/02/2025 12:45 PM EDT Procedure visit [facility] NEUROLOGY [facility]ECTOR [address] [facility] [address] [place], [place] [phone] Samm Ledesma APRN [address] [place], [place] [id number] 03/10/2025 12:30 PM EDT Appointment [facility] [place], [place] [id number] 03/10/2025 1:00 PM EDT Appointment [place] [address] Tacho Echavarria MD [address] [place] [address] [id number] 04/29/2025 9:15 AM EDT Appointment [place] [address] Batool Celis MD [address] [place] [address] [place] [address] 05/19/2025 2:15 PM EST Office Visit [facility] [place] [address] [facility] [address] [place] [address] Sin Tran MD [facility] [place] [address] 08/12/2025 10:40 AM EST Appointment [facility] Women's Wellness [place] [address] [facility] [place] [id number] Matt Ulrich MD [address] [place] [address] DR VIGIL [place] [address] documented as of this encounter Goals Goal Patient Goal Type Associated Problems Recent Progress Patient-Stated? Author Blood Pressure < 140/90 Blood Pressure 121/77(02/04 2:04 PM EDT) No Chetna Cedeno MD Breast [facility] Breast Health On track(2024 11:27 AM EDT) No Jasmin Porter, RAUL Note: Patient acknowledges understanding of new diagnosis, plan of care, available resources and how to contact Nurse Navigator with any future questions or concerns. Breast [facility] Breast Health Not on track(2024 11:27 [...] documented as of this encounter Care Teams Ammunition Specialist Relationship Specialty [place] [address] [place] [id number] PCP - General 06/21/10 Arlyn Schmidt MD [address] [place], [place] [id number] Consulting Physician Internal Medicine-Endocrinology, Diabetes & Metabolism 11/28/20 Tacho Echavarria MD 1 [place] [address] Internal Medicine-Medical Oncology 11/12/23 Matt Ulrich MD 1 [place], [place] [id number] Surgery-Surgical Oncology 12/04/23 Eze Brock Pastoral Care 12/13/23 Annette Walker MSW Electronic Funds Transfer Coordinator 05/13/24 Batool Celis MD 1 [facility] [place] [address] Radiation Oncologist Radiology-Radiation Oncology 06/08/24 documented as of this encounter
--- OUTSIDE RECORDS SUMMARY | 2025-02-04 11:00 | XMS_ITS | Encounter Summary ---
Author Organization [place] [address] Care Team Providers Care Melter Helper Name Role Phone Chetna Cedeno MD Primary Care Provider [phone] Arlyn Schmidt MD Unavailable [phone] Tacho Echavarria MD Unavailable [phone] Matt Ulrich MD Unavailable [phone] Eze Brock Unavailable Annette Walker Unavailable [phone] Batool Celis MD Unavailable [phone] Reason for Referral * Consultation (Routine) - Pending Review Specialty Diagnoses / Procedures Referred By Contac t Referred To Contact Diagnoses Invasive ductal carcinoma of breast, female, right (HCC) Procedures GA OFFICE/OUTPATIENT NEW MODERATE MDM 45 MINUTES Naya García PA-C [address] [facility] [address] [place] [address] Phone: tel: fax: Referral ID Status Reason Start Date Expiration Date V isits Requested Visits Authorized [id number] Pending Review 02/04/2025 02/04/2026 1 1 Question Answer Patient Status In Treatment - Survivorship visit today/not new diagnosis Reason for referral? Survivorship * Mammography (Routine) - Pending Review Specialty Diagnoses / Procedures Referred By Van butler Referred To Contact Radiology Diagnoses Encounter for screening mammogram for breast cancer Procedures MM MAMMO DIGITAL STEPHANE SCREEN LEFT Naya García PA-C [address] [place] [address] [address] [place] [id number] Phone: tel: fax: Referral ID Status Reason Start Date Expiration Date V isits Requested Visits Authorized [id number] Pending Review 02/04/2025 02/04/2027 1 1 Reason for Visit * Reason Comments Follow-up Survivorship Encounter Details Date Type Department Care Team (Latest Contact Info) Description 02/04/2025 11:00 AM EDT - 02/04/2025 1:47 PM EDT Hospital Encounter [facility] [place] [address] Tacho Echavarria MD [address] [place] [address] Naya García PA-C [address] [place] [address] [address] [place] [phone] Invasive ductal carcinoma of breast, female, right (HCC) (Primary Dx); Encounter for monitoring aromatase inhibitor therapy; Encounter for screening mammogram for breast cancer Discharge Disposition: Home or Self Care Social [...] from your doctor or pharmacy? Never 11/07/2023 C Utilities Answer Date Recorded In the past [...] often do you attend chur ch or taoist services? 1 to 4 times per year [...] Date Recorded PHQ-2 Total Score 5 07/07/2024 [facility] - Occupational Stress Questionnaire Answer Date [...] in a intermediate (including now)? No 11/07/2023 [facility] IP Transportation Answer D [...] Sign Reading Time Taken Comments Blood Pressure 145/82 02/04/2025 11:24 AM EDT Pulse 63 02/04/2025 11:24 AM EDT Temperature 36.1 C (97 F) 02/04/2025 11:24 AM EDT Respiratory Rate 16 02/04/2025 11:24 AM EDT Oxygen Saturation - - Inhaled Oxygen Concentration - - Weight 90.4 kg (199 lb 4.8 oz) 02/04/2025 11:24 AM EDT Height 160 cm (5' 3 ) 02/04/2025 11:24 AM EDT Body Mass Index 35.3 02/04/2025 11:24 AM EDT documented in this encounter Functional [...] hours as needed for Wheezing. 1 Each 4 anastrozole (ARIMIDEX) 1 mg Oral TabletIndications [...] 30 Tablet 5 02/04/2025 4:14 PM EDT 5 BOTOX 200 unit Inj [...] 4 fluticasone propionate (FLONASE) 50 mcg/actuation Nasl Ada, Suspension 1 Ada by Nasal route daily. 1 Each 11 [...] as needed. No driving 100 mL 5 rimegepant (NURTEC ODT) 75 mg Oral Tablet, Rapid Dissolve Dissolve 1 tablet in mouth at migraine onset (Max dose 75 mg/24 hours) 8 Tablet 5 02/04/2025 4:14 PM EDT 5 rOPINIRole (REQUIP) 0.25 mg Oral TabletIndications [...] 500 mcg/ml in pain pump. 60 mcg/day documented as of this encounter Discharge Disposition Disposition Code Departure Means Destination Home or Self Care documented in this encounter Progress Notes * Naya García PA-C - 02/04/2025 11:00 AM EDTAssociated Problem(s): Invasive ductal carcinoma of breast, female, right (HCC) - EUGENIA by exam - Expected post-surgery and XRT changes noted. Explained that breast pain following radiation is common and can get slightly worse before improving. Encouraged pt to use good support bra, heat, and massage to the breast for symptomatic relief. - Lymphatic massage video given. - working with PT to establish care closer to home. - Pt due for left screening M/g now - pt will plan to schedule closer to home. Given her desire forleft MTX, will plan for screening mammo annual until surgery completed. - Continue Aromasin + Verzenio - follows with Dr. Echavarria - Reviewed and discussed survivorship care plan and assessed emotional, sexual, and physical healthneeds in detail with patient. All surveillance and health maintenance information reviewed. - Reinforced sun protection and preventative health maintenance - Pt with good emotional and physical support from friends and family - Pt encouraged to continue monthly SBE. - Discussed importance of diet and exercise for risk reduction and overall health benefits. Orders: AMB REFERRAL TO [facility] * Demi Garibay RN - 02/04/2025 11:00 AM EDT Patient is seen today for a f/u and survivorship visit. Hx of right IDC; had right mastectomy, chemotherapy, radiation therapy. She takes Aromasin daily w/out difficulty. Last DEXA scan 12/29/20 in our system/low range, patient states she will discuss today with medical oncology/appointment this afternoon. She denies breast pain, no nipple discharge. She denies SOB or back pain. Family Hx updated. Discharged from [facility] yesterday, states had a blood clot in her left lung and taking blood thinner as recommended. Gait is steady with use of walker. Patient to meet with Annette/nadiya after her appointment today. Assessed patient's nutritional needs, activity level and weight change from diagnosis to today's visit. Offered nutritional counseling information and information for activity and exercise. Naya García PA-C in to evaluate patient, perform clinical chest/breast exam and review SCP and surveillance guidelines. Copy given to patient. P: Knowledge deficit r/t breast surveillance and SBE. G: Educate pt. I: Discussed signs/symptoms to watch for and report post breast cancer. Discussed continuing monthly self breast/chest exam, written material provided. Discussed to continue taking Aromasin daily. Discussed importance of healthy diet and exercise for overall health benefits and cancer risk reduction. Currently following with PT/ lymphedema massage link also provided in AVS. Has worked with boutique/has prosthesis which ripped and she is working on getting another. Emotional support provided. Reviewed and provided discharge instructions. Patient stated understanding. NEXT M/m-left screen- patient will have within next 2 months near her home, pt preference and ok with Naya. Return in [address] Ulrich/ to discuss left mastectomy, per Naya. Integrative oncology referral sent. Patient to check my chart for the date and time of her follow up. DEXA scan- will discuss with medical oncology today at follow up appointment. * Naya García PA-C - 02/04/2025 11:00 AM EDT Images from the original note were not included. Patient: Meri Cole Date of : 1965 Age: 59 y.o. Date of Service: 02/04/2025 SURGICAL ONCOLOGY FOLLOW UP VISIT Surgical Oncologist: Dr. Matt Ulrich Radiation Oncologist: Dr. Batool Celis Medical Oncologist: Dr. Tacho Echavarria PRIOR TREATMENT: Ashwin-adjuvant dose dense Misbah/Cytoxan (AC) x 4 -> Taxane x 12 weekly 02/20/24 -taxol changed to abraxane C5D8 (prior tx not tolerated great) - plan for 3/4 cycles then surgery CURRENT TREATMENT: Verzenio + Exemestane 25 mg (AROMASIN) - started taking 10/2024; originally on Arimidex with severe leg pain - compliant, tolerating well - follows with Dr. Tacho Echavarria No recent DEXA HISTORY OF PRESENT ILLNESS: Meri Cole is coming today for survivorship visit. She was seeing PT for lymphedema, but with her recent move, is working with them to find a place closer to home. Still with some tightness in her right shoulder/chest and swelling. Otherwise, denies new left breast lumps, skin changes, nipple discharge, or adenopathy. No arm swelling. Bra fits ok. She was recently in [facility] and diagnosed with PE. On blood thinner. Still having fatigue and overall not feeling well, but improving slightly. Nonsmoker. Nutrition: Regular diet; unrestricted; no calorie counting Activity: No intentional exercise/activity outside of everyday chores/household duties - uses walker and has difficulty standing for long periods Support: friends - seeing a counselor and has gone to the breast cancer support group GENETICS/FAMILY HISTORY: Genetics Negative (Everfiaguila Hereditary Cancer 67-gene panel). No new family members with breast, ovarian, prostate, pancreatic or melanoma cancer. Cancer-related family history is negative for Colon Cancer, Esophageal Cancer, Liver Cancer, RectalCancer, and Stomach Cancer. ONCOLOGY HISTORY: Oncology History Invasive ductal carcinoma of breast, female, right (HCC) 10/29/2023 Initial Diagnosis Invasive ductal carcinoma of right breast, grade 3 A. Breast, right, 6:00, Invasive ductal carcinoma, grade 3 ER 80%, GA 11%, Her2 negative B. Breast, right, 5:00 Invasive ductal carcinoma grade 3 ER 92%, GA 55%, Her2 negative 11/11/2023 - Consult Initial consultation with surgeon-Dr. Adryan Ulrich 11/11/2023 - Genetics 69 gene panel testing results were negative. 12/05/2023 - Chemotherapy Ashwin-adjuvant dose dense Misbah/Cytoxan (AC) x 4 -> Taxane x 12 weekly 02/20/24 -taxol changed to abraxane C5D8 (prior tx not tolerated great) - plan for 3/4 cycles then surgery 07/06/2024 Surgery Right modified radical mastectomy, per Dr. Ulrich. Pathology - Extensive residual invasive ductal carcinoma with necrosis, grade 3, indicating an incomplete response to neoadjuvant chemotherapy. - Margins are negative for invasive carcinoma. - Margins are negative for DCIS. - Positive for extensive lymphovascular invasion. - Skin dermis involved by invasive carcinoma; epidermis is uninvolved. - Nipple dermis involved by invasive carcinoma; epidermis is uninvolved. - Thirteen of thirteen lymph nodes, positive for metastatic carcinoma (13/13). 07/23/2024 - Pathology JOI ORDERED: Positive cell free DNA 08/03/2024 - 06/07/2025 Chemotherapy Anastrozole 1mg po daily x 10 yr + Verzenio 50mg po bid and titrate up to GI tolerance for 2 yr planned (Groesbeck-E regimen) 10/2024 - changed to Aromasin d/t SEs (severe leg arthralgias) Medical Oncologist: Dr. Echavarria 08/12/2024 - 09/25/2024 Radiation Tx External beam radiotherapy to a total dose of 60 Gy; 50 Gy to right chest wall and regional lymph nodes including internal mammary + 10 Gy boost to the undissected nodes. Delivered in a total of 30 fractions. Primary Radiation Oncologist: Dr. Celis. Stage Clinical Stage IIIB (cT3, cN3a(f), cM0, G3, ER+, GA+, HER2-) Pathologic Stage ypT3, ypN3a, G3, ER+, GA+, HER2- 02/04/2025 - Other Naya García PA-C reviewed SCP and surveillance/imaging recommendations with patient. Patient andcare team received copy. Right breast cancer with T3 tumor, >5 cm in greatest dimension (HCC) 07/06/2024 Initial Diagnosis Right breast cancer with T3 tumor, >5 cm in greatest dimension (HCC) 10/28/2024 - Genetics One[facility] testing today Cancer Staging Invasive ductal carcinoma of breast, female, right (HCC) Staging form: Breast, AJCC 8th Edition - Clinical stage from 10/25/2023: Stage IIIB (cT3, cN3a(f), cM0, G3, ER+, GA+, HER2-) - Unsigned - Pathologic stage from 07/06/2024: ypT3, ypN3a, G3, ER+, GA+, HER2- - Unsigned RECENT IMAGING: Right MTX No recent left breast imaging since surgery PHYSICAL EXAM: Vitals: 02/04/25 1124 BP: 145/82 Pulse: 63 Resp: 16 Temp: 97 ??F (36.1 ??C) Wt Readings from Last 3 Encounters: 02/04/25 199 lb 4.8 oz (90.4 kg) 01/15/25 190 lb 4.8 oz (86.3 kg) 01/06/25 187 lb 1.6 oz (84.9 kg) Physical Exam Vitals reviewed. Constitutional: General: She is not in acute distress. Appearance: She is not diaphoretic. HENT: Head: Normocephalic and atraumatic. Pulmonary: Effort: Pulmonary effort is normal. Chest: Breasts: Breasts are asymmetrical. Right: Swelling and skin change present. No bleeding, mass or tenderness. Left: No swelling, bleeding, inverted nipple, mass, nipple discharge, skin change or tenderness. Comments: R MTX without reconstruction Fibrosis, edema, and decreased range of motion in left chest/axilla Lymphadenopathy: Upper Body: Right upper body: No supraclavicular or axillary adenopathy. Left upper body: No supraclavicular or axillary adenopathy. Neurological: Mental Status: She is alert and oriented to person, place, and time. Psychiatric: Mood and Affect: Mood and affect normal. Cognition and Memory: Memory normal. Judgment: Judgment normal. MEDICATIONS Current Outpatient Medications on File Prior to Encounter Medication Sig Dispense Refill abemaciclib (VERZENIO) 100 [...] as needed for Wheezing. 1 Each 11 ARIPiprazole (ABILIFY) 5 mg Oral Tablet Take 1 Tablet by mouth daily. 30 Tablet 1 atogepant 60 mg Oral Tablet Take 1 Tablet by mouth daily. 30 Tablet 5 BOTOX 200 unit Inj Recon Soln dicyclomine (BENTYL) 10 mg Oral Capsule Take 1 Capsule by mouth 3 times daily. for abdominal lkyyhy84 Capsule 0 DULoxetine (CYMBALTA) 30 mg Oral [...] 6 fluticasone propionate (FLONASE) 50 mcg/actuation Nasl Ada, Suspension 1 Ada by Nasal route daily. 1 Each 11 [...] as needed. No driving 100 mL 0 rimegepant (NURTEC ODT) 75 mg Oral Tablet, Rapid Dissolve Dissolve 1 tablet in mouth at migraine onset (Max dose 75 mg/24 hours) 8 Tablet 5 rOPINIRole (REQUIP) 0.25 mg Oral [...] 500 mcg/ml in pain pump. 60 mcg/day anastrozole (ARIMIDEX) 1 mg Oral Tablet Take 1 Tablet by mouth daily. 90 Tablet 3 No current facility-administered medications on file prior to encounter. PAST MEDICAL / SURGICAL HISTORY: Past Medical History: Diagnosis Date Anemia Asthma [...] Sleep apnea no cpap Uterine prolapse 06/06/2011 Past Surgical History: Procedure Laterality Date APPENDECTOMY BREAST BIOPSY Right 10/25/2023 5:00 and 6:00 CHOLECYSTECTOMY GASTRIC BYPASS SURGERY N/A 05/01/2017 LAPAROSCOPIC SLEEVE GASTRECTOMY ; Surgeon: Marcus Perez MD; Location: [facility] MA[facility] OR; Service: General IR 2 LEVEL [...] SACRAL SINGLE LVL 08/03/2022 Sin Tran MD [facility] IMAGING IR PORT PLACEMENT EQUAL OR > 5 YEARS 11/29/2023 IR PORT PLACEMENT EQUAL OR > 5 YEARS 11/29/2023 Joselito Goodwin MD [facility] IR LUMBAR DISC SURGERY 09/11/2012 LUMBAR LAMINECTOMY & DISCECTOMY L4-5 LEFT ; Surgeon: Hetal Borden MD; MASTECTOMY Right 07/06/2024 Right modified radical mastectomy; Surgeon: Matt Ulrich MD; Location: [facility] OR; Service:General SPINE SURGERY N/A 01/04/2021 PAIN PUMP PERMANENT IMPLANT; Surgeon: Munir Hilton MD; Location: [facility]; Service: Pain Management THORACIC SPINE SURGERY N/A 02/24/2020 SPINAL CORD STIMULATOR IMPLANT; Surgeon: Munir Hilton MD; Location: [facility]; Service: Pain Management TONSILLECTOMY UPPER GASTROINTESTINAL ENDOSCOPY UPPER GASTROINTESTINAL ENDOSCOPY N/A 01/26/2015 ESOPHAGOGASTRODUODENOSCOPY with biopsy and davis dilation; Surgeon: Stone Cronin MD; Location: [facility]; Service: Endoscopy Allergies Allergen Reactions Amoxicillin Hives Cefazolin Hives and Nausea And Vomiting Dilaudid [Hydromorphone] Rash itching Hydrocodone Hives hives and face swelling Methocarbamol Swelling Morphine Shortness Of Breath Sumatriptan Swelling Tongue swelled, jaw locked up, dizziness Tree Nut Shortness Of Breath and Swelling Tegaderm Ag Mesh [Silver] Itching and Rash Tegaderm dressing Zoster Vaccine Live Hives Lactase Diarrhea Lactose Intolerance (Lactase) Diarrhea Shingrix (Pf) [Varicella-Zoster Ge-As01b (Pf)] Other (See Comments) Itchy rash Tree Nuts Shortness Of Breath and Swelling Varicella-Zoster Immune Globulin (Human) Other (See Comments) Adhesive Rash Tilactase Diarrhea Social History Socioeconomic History Marital status: Spouse name: Not on file Number of children: 4 Years of education: Not on file Highest education level: High school graduate Occupational History Employer: [employer] Tobacco Use Smoking status: Never Passive exposure: [...] true Transportation Needs: No Transportation Needs (07/07/2024) [facility] Transportation In the past 12 months, has lack of reliable transportation kept you from medical appointments, meetings, work or from getting things needed for daily living?: No Physical Activity: Insufficiently Active (07/07/2024) Exercise Vital Sign Days of Exercise per Week: 3 days Minutes of Exercise per Session: 40 min Stress: Stress Concern Present (07/07/2024) [employer] [place] [employer] - Occupational Stress Questionnaire [...] Stability: No Transportation Needs (02/24/2024) Received from [facility] Yearly Questionnaire Do you need any assistance with obtaining housing, meals, medication, transportation or medical equipment?: No Assistance needed for:: Not on file ASSESSMENT & PLAN Assessment & Plan Invasive ductal carcinoma of breast, female, right (HCC) - EUGENIA by exam - Expected post-surgery and XRT changes noted. Explained that breast pain following radiation is common and can get slightly worse before improving. Encouraged pt to use good support bra, heat, and massage to the breast for symptomatic relief. - Lymphatic massage video given. - working with PT to establish care closer to home. - Pt due for left screening M/g now - pt will plan to schedule closer to home. Given her desire forleft MTX, will plan for screening mammo annual until surgery completed. - Continue Aromasin + Verzenio - follows with Dr. Echavarria - Reviewed and discussed survivorship care plan and assessed emotional, sexual, and physical healthneeds in detail with patient. All surveillance and health maintenance information reviewed. - Reinforced sun protection and preventative health maintenance - Pt with good emotional and physical support from friends and family - Pt encouraged to continue monthly SBE. - Discussed importance of diet and exercise for risk reduction and overall health benefits. Orders: AMB REFERRAL TO [facility]AT[facility]ICINE Encounter for monitoring aromatase inhibitor therapy - tolerating well, will continue current therapy - Discussed importance of bone health, especially when taking an AI. Pt encouraged to continue Vitamin D3, Calcium, and weight bearing exercises - Due for DEXA, will defer scheduling to Dr. Echavarria Encounter for screening mammogram for breast cancer Orders: MM MAMMO DIGITAL STEPHANE SCREEN LEFT; Future Dispo: Return in about 6 months (around 08/07/2025) for follow-up with Dr. Ulrich . Thank you for the opportunity to assist in the care of this patient. Naya García PA-C Breast [facility] Total time approx. 50 minutes, including review of notes, [id number] interaction, and documentation. Reviewed past pathology and treatments, discussed future imaging and surveillance recommendations, reviewed common side effects of surgery, radiation, chemotherapy, endocrine therapy and signs and symptoms of recurrence to watch for, monthly self breast exam technique, and discussed importance of diet and exercise on overall health and recurrence risk reduction. Counseling and support group information given. documented in this encounter Miscellaneous Notes * Patient Instructions - Demi Garibay RN - 02/04/2025 11:00 AM EDT Images from the original note were not included. Recommendations - Continue taking Exemestane 25 mg (AROMASIN). - Continue monthly self breast/chest exams and call for concerns. Next Appointment You are due for a follow-up visit in [address] Ulrich - please check My Chart for appointment. You area also due for Left Breast Screening Mammogram - you will have near where you live in the next couple months as discussed with Naya, call if you have any concerns after screening mammogram. Lymphatic Drainage Massage for Breast Lymphedema & Swelling: How to Complete a Lymphatic Massage Below is the web address for a YouTube video with instructions on how to perform self-massage for breast swelling. Click link below to access video: Lymphatic Massage YouTube Video [email or web address] Discuss DEXA scan with medical oncology, your last in our system was on 12/29/20. Breast Health Nurse Contact - Report new changes by calling the Breast Health Nurse Line at [phone]. Please remember the nurse checks voice mail messages throughout the day. However, if the nurse taking care of the phone messages is with another patient, she may not be able to return your call until later in the day. If you need immediate assistance or if there is an emergency, please call your doctor's number or go tot Emergency Room. Desiree The number to our [employer] is [phone]. You may call to set up an appointment or just stop in, however, an appointment is recommended. Breast Self-Awareness Breast self-awareness means: Knowing how your breasts look. Knowing how your breasts feel. Checking your breasts every month for changes. Telling your doctor if you notice a change in your breasts. Breast self-awareness allows you to notice a breast problem early while it is still small. How to do a breast self-exam One way to learn what is normal for your breasts and to check for changes is to do a breast self-exam. To do a breast self-exam: Look for Changes Take off all the clothes above your waist. cleaning validation consultant front of a mirror in a room with good lighting. Put your hands on your hips. Push your hands down. Look at your breasts and nipples in the mirror to see if one breast or nipple looks different than the other. Check to see if: The shape of one breast is different. The size of one breast is different. There are wrinkles, dips, and bumps in one breast and not the other. Look at each breast for changes in your skin, such as: Redness. Scaly areas. Look for changes in your nipples, such as: Liquid around the nipples. Bleeding. Dimpling. Redness. A change in where the nipples are. Feel for Changes Lie on your back on the floor. Feel each breast. To do this, follow these steps: Pick a breast to feel. Put the arm closest to that breast above your head. Use your other arm to feel the nipple area of your breast. Feel the area with the pads of your three middle fingers by making small circles with your fingers. For the first [place], press lightly. Forthe second [place], press harder. For the third [place], press even harder. Keep making circles with your fingers at the light, harder, and even harder pressures as you move down your breast. Stop when you feel your ribs. Move your fingers a little toward the center of your body. Start making circles with your fingers again, this time going up until you reach your collarbone. Keep making up and down circles until you reach your armpit. Remember to keep using the three pressures. Feel the other breast in the same way. Sit or dining chair seat cushion trimmer the shower or tub. With soapy water on your skin, feel each breast the same way you did in step 2, when you were lyingon the floor. Write Down What You Find After doing the self-exam, write down: What is normal for each breast. Any changes you find in each breast. When you last had your period. How often should I check my breasts? Check your breasts every month. If you are , the best time to check them is after you feed your baby or after you use a breast pump. If you get periods, the best time to check your breasts is 5-7 days after your period is over. When should I see my doctor? See your doctor if you notice: A change in shape or size of your breasts or nipples. A change in the skin of your breast or nipples, such as red or scaly skin. Unusual fluid coming from your nipples. A lump or thick area that was not there before. Pain in your breasts. Anything that concerns you. This information is not intended to replace advice given to you by your health care provider. Make sure you discuss any questions you have with your health care provider. Document Released: 12/10/2008 Document Revised: 11/29/2016 Document Reviewed: 05/13/2016 [employer] Interactive Patient Education ?? 2018 [employer] It is best not to drink alcohol. Alcohol increases risk of breast cancer. Even drinking small amounts of alcohol has been linked with an increase in risk. It is best not to drink alcohol at all. For women who do drink, they should have no more than 1 alcoholic drink a day. A drink is 12 ounces of beer, 5 ounces of wine, or 1.5 ounces of 80-proof distilled spirits (hard liquor). BONE HEALTH Bones protect organs, store calcium, anchor muscles, and support the whole body. Keeping your bonesstrong is important, especially as you get older. You can take actions to help keep your bones strong and healthy. Get enough calcium - recommended 1200mg/day (take no more than 600mg at one time for best absorption) Calcium is the most important (essential) mineral for bone health. Most people can get enough calcium from their diet, but supplements may be recommended for people who are at risk for osteoporosis. Good sources of calcium include: Dairy products, such as low-fat or nonfat milk, cheese, and yogurt. Dark green leafy vegetables, such as bok bassem and broccoli. Calcium-fortified foods, such as orange juice, cereal, bread, soy beverages, and tofu products. Nuts, such as almonds. Get enough vitamin D - recommend 7577-7080 IU/day Vitamin D is the most essential vitamin for bone health. It helps the body absorb calcium. Sunlightstimulates the skin to make vitamin D, so be sure to get enough sunlight. If you live in a cold climate or you do not get outside often, your health care provider may recommend that you take vitamin D supplements. Good sources of vitamin D in your diet include: Egg yolks. Saltwater fish. Milk and cereal fortified with vitamin D. Get other important nutrients Other nutrients that are important for bone health include: Phosphorus. This mineral is found in meat, poultry, dairy foods, nuts, and legumes. The recommendeddaily intake for adult women is 700 mg. Magnesium. This mineral is found in seeds, nuts, dark green vegetables, and legumes. The recommended daily intake for adult women, it is 310-320 mg. Vitamin K. This vitamin is found in green leafy vegetables. The recommended daily intake is 90 mg for adult women. What type of physical activity is best for building and maintaining healthy bones? Weight-bearing and strength-building activities are important for building and maintaining healthy bones. Weight-bearing activities cause muscles and bones to work against gravity. Strength-building activities increase the strength of the muscles that support bones. Weight-bearing and muscle-building activities include: Walking and hiking. Jogging and running. Dancing. Gym exercises. Lifting weights. Tennis and racquetball. Climbing stairs. Aerobics. Where can I find more information? For more information, check out the following websites: National Osteoporosis Foundation: www.nof.org/patients Osteoporosis Patient Education and Information National Institutes of Health: www.bones.nih.gov Bone Health and Osteoporosis NIAMS International Osteoporosis Foundation: International Osteoporosis Foundation IOF For more information on Calcium and Vitamin D: Calcium/Vitamin D Requirements, Recommended Foods & Supplements documented in this encounter Plan of Treatment Upcoming Encounters Date Type Department Care Team (Late st Contact Info) Description 03/02/2025 11:40 AM EDT Office Visit [facility] Timoteo MERRITT [address] [place] [address] [place] [address] [place] [address] 03/02/2025 12:45 PM EDT Procedure visit [facility] [address] [place] [address] aSmm Ledesma APRN [address] [place] [address] 03/10/2025 12:30 PM EDT Appointment [facility] [address] [place], [place] [id number] 03/10/2025 1:00 PM EDT [facility]ment [facility] [place] [address] Tacho Echavarria MD [address] [place] [id number] 04/29/2025 9:15 AM EDT Appointment [facility] [address] Batool Celis MD [address] [place] [address] [place] [address] 05/19/2025 2:15 PM EST Office Visit [address] [address] Sin Tran MD [address] [place] [address] 08/12/2025 10:40 AM EST Appointment [facility] [place] [address] Matt Ulrich MD [address] [place] [address] [address] [phone] Scheduled Orders Name Type Priority Associated Diagnoses Orde r Schedule MM MAMMO DIGITAL STEPHANE SCREEN LEFT Imaging Routine Encounter for screening mammogram for breast cancer 1 Occurrences starting 02/04/2025 until 02/04/2027 Scheduled Referrals Name Type Priority Associated Diagnoses Order Schedule AMB REFERRAL TO INTEGRATIVE MEDICINE Outpatient Referral Routine Invasive ductal carcinoma of breast, female, right (HCC) Ordered: 02/04/2025 documented as of this encounter Goals Goal [...] any future questions or concerns. Breast [facility] Breast Health Not on track(2024 11:27 [...] carcinoma of breast, female, right (HCC)- Primary Encounter for monitoring aromatase inhibitor therapy Encounter for therapeutic drug monitoring Encounter for screening mammogram for breast cancer documented in this encounter Additional Health Concerns Assessment Noted Time PHQ-9 Depression Total Score: 17 024 8:39 AM EST PHQ-2 Depression Total Score: 5 07/07/20 24 8:39 AM EST documented as of this encounter Care Teams Melter Helper Relationship Specialty [place] [address] [place] [address] PCP - General 06/21/10 Arlyn Schmidt MD [address] [place] [address] Consulting Physician Internal Medicine-Endocrinology, Diabetes & Metabolism 11/28/20 Tacho Echavarria MD [address] [place] [address] [id number] Internal Medicine-Medical Oncology 11/12/23 Matt Ulrich MD [address] [place] [address] Surgery-Surgical Oncology 12/04/23 Eze Brock Pastoral Care 12/13/23 Annette Walker MSW City Distribution Clerk 05/13/24 Batool Celis MD 1 [facility] [place] [address] Radiation Oncologist Radiology-Radiation Oncology 06/08/24 documented as of this encounter
--- OUTSIDE RECORDS SUMMARY | 2025-02-04 13:48 | XMS_ITS | Encounter Summary ---
Author Organization [place] [address] Care Team Providers Care Window Glazier Name Role Phone Chetna Cedeno MD Primary Care Provider [phone] Arlyn Schmidt MD Unavailable [phone] Tacho Echavarria MD Unavailable [phone] Matt Ulrich MD Unavailable [phone] Eze Brock Unavailable Annette Walker Unavailable [phone] Batool Celis MD Unavailable [phone] Encounter Details Date Type Department Care Team (Latest Contact Info) Description 02/04/2025 1:48 PM EDT - 02/04/2025 2:02 PM EDT Hospital Encounter [facility] [place], [place] [id number] Tacho Echavarria MD [address] [place] [address] [phone] Invasive ductal carcinoma of breast, female, right [...] from your doctor or pharmacy? Never 11/07/2023 [facility] Utilities Answer Date Recorded In [...] Score 5 07/07/2024 [facility] - [...] a skilled nursing (including now)? No 11/07/2023 [facility] IP Transportation Answer D ate Recorded [...] 4 fluticasone propionate (FLONASE) 50 mcg/actuation Nasl [place], Suspension 1 [place] by Nasal route daily. 1 Each 11 [...] AM EDT Office Visit [facility] [address] [place] [address] [place] [address] [place] [address] 03/02/2025 12:45 PM EDT Procedure visit [facility] [address] [place] [address] [phone] Samm Ledesma, SNACK STEWARDESS [address] [place], [place] [phone] 03/10/2025 12:30 PM EDT Appointment [facility] [place], [place] [phone] 03/10/2025 1:00 PM EDT Appointment [facility] [place] [address] Tacho Echavarria MD [address] [place] [address] 04/29/2025 9:15 AM EDT Appointment [facility] [place] [address] Batool Celis MD [address] [place] [address] [place] [address] 05/19/2025 2:15 PM EST Office Visit [facility] [address] [address] [address] [place] [address] Sin rTan MD [address] [place] [address] 08/12/2025 10:40 AM EST Appointment [facility] Women's Wellness [facility] Emilee ZORAIDA Smith [address] Matt Ulrich MD [address] [place] [address] MUSA ZORAIDA CORREA [address] documented as of this encounter Goals Goal Patient Goal Type Associated Problems Recent Progress Patient-Stated? Author Blood Pressure < 140/90 Blood Pressure 121/77(02/04 2:04 PM EDT) No Chetna Cedeno MD Breast [facility] Breast Health On track(2024 11:27 AM EDT) No Jasmin Porter, RAUL Note: Patient acknowledges understanding of new diagnosis, plan of care, available resources and how to contact Nurse Navigator with any future questions or concerns. Breast [facility] Breast Health Not on track(2024 11:27 AM EDT) No Jasmin Porter, RAUL Note: Patient will be compliant with monthly SBE and is aware of who to contact for any unusual or concerning findings. Breast [facility] Breast Health On track(2024 11:27 AM EDT) No Demi Garibay, RN Note: Patient will be compliant with taking Aromatase Inhibitor daily and understands who to contact to discuss any side effects or complications. Maintain a healthy diet, exercise regularly and maintain an ideal body weight General No Sanam uJlio MA documented as of this encounter Procedures [...] B12/ FOLIC ACID (02/04/2025 2:03 PM EDT) [facility] Vitamin B12 271 232 - 1,245 pg/mL 02/04/2025 4:31 PM EDT [facility] [employer] [facility] Folate 6.16 >=4.80 ng/mL 02/04/2025 4:31 PM EDT [facility] [employer] [facility] Blood VENOUS BLOOD / Unknown Venipuncture / Unknown 02/04/2025 2:03 PM EDT 02/04/2025 2:03 PM EDT Narrative PREFERRED [employer] [facility] - 02/04/2025 4:31 PM EDT Ingestion of haroon doses of biotin (>5 mg/day) taken within 8 hours of drawing blood sample can interfere with this immunoassay test. [facility] Radha Echavarria MD CHEMISTRY ORDERABLES Final Result [facility] [employer] [facility] [address] [facility] , [place] [address] * (ABNORMAL) CBC WITH DIFF (02/04/2025 2:03 PM EDT) [facility] WBC 8.1 3.7 - 10.3 x10(3)/mc L 02/04/2025 2:07 PM EDT [facility] RBC 2.95(L) 3.90 - 5.20 x10(6)/mc L 02/04/2025 2:07 PM EDT [facility] Hgb 9.4(L) 11.2 - 15.7 g/dL 02/04/2025 2:07 PM EDT [facility] Hct 28.1(L) 34.0 - 45.0 % 02/04/2025 2:07 PM EDT [facility] MCV 95.3 80.0 - 100.0 fL 02/04/2025 2:07 PM EDT [facility] MCH 31.9 26.0 - 34.0 pg 02/04/2025 2:07 PM EDT [facility] MCHC 33.5 30.7 - 35.5 g/dL 02/04/2025 2:07 PM EDT [facility] RDW 15.0(H) <=14.9 % 02/04/2025 2:07 PM EDT [facility] Platelet 163 155 - 369 x10(3)/mc L 02/04/2025 2:07 PM EDT [facility] MPV 8.8 8.8 - 12.5 fL 02/04/2025 2:07 PM EDT [facility] Neut # Prelim 5.6 1.6 - 6.1 x10(3)/mc L 02/04/2025 2:07 PM EDT [facility] Comment:Preliminary automate d absolute neutrophil count. Value may change if manual differential is indicated. Neut Percent 68.4 % 02/04/2025 2:07 PM EDT [facility] Comment:Neutrophils equals s egs plus bands Imm Gran% 0.2 % 02/04/2025 2:07 PM EDT [facility] Comment:Automated count of m etamyelocytes, myelocytes and promyelocytes. Lymph Percent 23.4 % 02/04/2025 2:07 PM EDT [facility] [place] Percent 5.7 % 02/04/2025 2:07 PM EDT [facility] Eos Percent 2.1 % 02/04/2025 2:07 PM EDT [facility] Baso Percent 0.2 % 02/04/2025 2:07 PM EDT [facility] Neut # 5.6 1.6 - 6.1 x10(3)/mc L 02/04/2025 2:07 PM EDT [facility] Comment:Neutrophils equals s egs plus bands IMMGRAN# 0.0 0.0 - 0.1 x10(3)/mc L 02/04/2025 2:07 PM EDT [facility] Comment:Automated count of m etamyelocytes, myelocytes and promyelocytes. An absolute IG <0.1 is reported as 0.0. Lymph # 1.9 1.2 - 3.9 x10(3)/mc L 02/04/2025 2:07 PM EDT [facility] [place] # 0.5 0.3 - 0.9 x10(3)/mc L 02/04/2025 2:07 PM EDT [facility] Eos# 0.2 0.0 - 0.5 x10(3)/mc L 02/04/2025 2:07 PM EDT [facility] Baso # 0.0 0.0 - 0.1 x10(3)/mc L 02/04/2025 2:07 PM EDT [facility] Blood VENOUS BLOOD / Unknown Venipuncture / Unknown 02/04/2025 2:03 PM EDT 02/04/2025 2:03 PM EDT us Tacho Echavarria MD HEMATOLOGY ORDERABLES Final Result Performing Organization Address City/[facility]/ZIP Co de Phone Number [facility] [address] [place] [address] * IRON+TIBC (02/04/2025 2:02 PM EDT) [facility] Iron 82 30 - 160 mcg/dL 02/04/2025 [...] CHEMISTRY ORDERABLES Final Result Performing Organization Address City/[facility]/ZIP Co de Phone Number [facility] [address] [place] [phone] [facility], [facility] [address] [facility] [place] [phone] * (ABNORMAL) COMPREHENSIVE METABOLIC PANEL (02/04/2025 2:02 PM EDT) [facility] Sodium 142 136 - 145 mmol/L 02/04/2025 2:28 PM EDT [facility] Potassium 3.3(L) 3.5 - 5.0 mmol/L 02/04/2025 2:28 PM EDT [facility] Chloride 108(H) 98 - 107 mmol/L 02/04/2025 2:28 PM EDT [facility] Total CO2 19(L) 22 - 29 mmol/L 02/04/2025 2:28 PM EDT [facility] Anion Gap 15 7 - 16 mmol/L 02/04/2025 2:28 PM EDT [facility] Calcium 8.6 8.6 - 10.4 mg/dL 02/04/2025 2:28 PM EDT [facility] Glucose Lvl 134(H) 70 - 99 mg/dL 02/04/2025 2:28 PM EDT [facility] BUN 12 6 - 20 mg/dL 02/04/2025 2:28 PM EDT [facility] Creatinine 0.78 0.51 - 1.30 mg/dL 02/04/2025 2:28 PM EDT [facility] Albumin 3.8 3.5 - 5.2 gm/dL 02/04/2025 2:28 PM EDT [facility] Total Protein 6.0(L) 6.4 - 8.3 gm/dL 02/04/2025 2:28 PM EDT [facility] Bili Total 0.3 0.2 - 1.3 mg/dL 02/04/2025 2:28 PM EDT [facility] ALT 8 <=41 U/L 02/04/2025 2:28 PM EDT [facility] AST 12 <=40 U/L 02/04/2025 2:28 PM EDT [facility] Alk Phos 95 36 - 123 U/L 02/04/2025 2:28 PM EDT [facility] eGFR (CKD-EPIcr 2020) 88 >=60 mL/min/1.7 3 m2 02/04/2025 2:28 PM EDT [facility] Comment:Estimated GFR was ca lculated using the CKD-EPIcr (2020) equation refit without race. The equation is recommended by the National Kidney Foundation - [place] [employer] of Nephrology Task Force. Blood VENOUS BLOOD / Unknown Venipuncture / Unknown 02/04/2025 2:02 PM EDT 02/04/2025 2:02 PM EDT Tacho Echavarria MD CHEMISTRY ORDERABLES Final Result [facility] 1 [place] [address] documented in this encounter Visit [...] documented as of this encounter Care Teams Window Glazier Relationship Specialty [place] [address] [place] [address] PCP - General 06/21/10 Arlyn Schmidt MD [address] [place] [address] Consulting Physician Internal Medicine-Endocrinology, Diabetes & Metabolism 11/28/20 Tacho Echavarria MD 1 [place] [address] Internal Medicine-Medical Oncology 11/12/23 Matt Ulrich MD 1 [place] [address] Surgery-Surgical Oncology 12/04/23 Eze Brock Pastoral Care 12/13/23 Annette Walker, [facility] Cylinder Head Assembler 05/13/24 Batool Celis MD [address] [facility] [place] [address] Radiation Oncologist Radiology-Radiation Oncology 06/08/24 documented as of this encounter
--- OUTSIDE RECORDS SUMMARY | 2025-02-04 14:03 | XMS_ITS | Encounter Summary ---
Author Organization [place] [address] Care Team Providers Care Music Theory Professor Name Role Phone Chetna Cedeno MD Primary Care Provider [phone] Arlyn Schmidt MD Unavailable [phone] Tacho Echavarria MD Unavailable [phone] Matt Ulrich MD Unavailable [phone] Eze Brock Unavailable Annette Walker Unavailable [phone] Batool Celis MD Unavailable [phone] Reason for Visit * Reason Comments Follow-up Breast Cancer Encounter Details Date Type Department Care Team (Latest Contact Info) Description 02/04/2025 2:03 PM EDT - 02/04/2025 11:59 PM EDT Hospital Encounter Cancer Care Medical Oncology [place], [place] [id number] Tacho Echavarria MD [address] [place] [address] [phone] Invasive ductal carcinoma of breast, female, right [...] your doctor or pharmacy? Never 11/07/2023 [facility] Utilities Answer Date Recorded In the [...] any clubs o r organizations such as jehovah's witness groups, unions, fraternal or athletic groups, or [...] Date Recorded PHQ-2 Total Score 5 07/07/2024 [facility] - [...] in a mcfp (including now)? No 11/07/2023 [facility] IP Transportation Answer D ate Recorded [...] 4 fluticasone propionate (FLONASE) 50 mcg/actuation Nasl [place], Suspension 1 [place] by Nasal route daily. 1 Each 4 [...] were not included. Patient: El Cole CSN: [id number] Date of : 1965 Age: 59 y.o. Date of Service: 02/04/2025 HEMATOLOGY/ONCOLOGY FOLLOW UP VISIT Primary Nib Adjuster & Oncologist: Tacho Echavarria MD. Patient Care Team: Chetna Cedeno MD as PCP - General Arlyn Schmidt MD as Consulting Physician (Internal Medicine-Endocrinology, Diabetes & Metabolism) Tacho Echavarria MD (Internal Medicine-Medical Oncology) Matt Ulrich MD (Surgery-Surgical Oncology) Eze Brock as Pastoral Care Annette Walkre MSW as Fitness And Wellness Instructor Batool Celis MD as Radiation Oncologist (Radiology-Radiation Oncology) 2nd OPINION [facility] EVAL: [place], [place]: Dr Cota Richmond: [phone] Next of Kin: Daughter Ruthy Man ([phone]) Patient Contact info: [phone] DIAGNOSIS HISTORY DATE OF INITIAL CONSULTATION: 11/14/23; outside 2nd opinion at on 09/23/2024 CURRENT TREATMENT BREAST CA: adjuvant [place]-E regimen: Aromasin 25mg po daily + dose titration up of Abemacyclib (Verzenio) 50mg po bid -> 100 mg po bid, per NCCN guidelines PE (02/02/25, at [facility]) and 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 Breast, right, 6:00, Invasive ductal carcinoma, grade 3 ER 80%, TN 11%, Her2 negative B. Breast, right, 5:00 Invasive ductal carcinoma grade 3 ER 92%, TN 55%, Her2 negative 11/11/2023 - Consult Initial [...] to GI tolerance for 2 yr planned ([place]-E regimen) 10/2024 - changed to Aromasin d/t [...] Stage IIIB (cT3, cN3a(f), cM0, G3, ER+, TN+, HER2-) Pathologic Stage ypT3, ypN3a, G3, ER+, TN+, HER2- 02/04/2025 - Other Naya García PA-C [...] CalcPt Dosage Given to Date in Gy 10.68019067 Session Dosage Given in Gy 2.08396666 Reference Point ID LN Boost RP Dosage Given to Date in Gy 10 Session Dosage Given in Gy 1.38378113 Reference Point ID [id number] ISO Dosage Given to Date in Gy 40.37496780 Session Dosage Given in Gy 0.46513412 Plan ID BH Nd Boost Plan Name [...] BILATERAL MEDIAL BRANCH BLOCK LUM SAC 09/01/2018 [facility] IR 2 LEVEL BILATERAL [...] radical mastectomy; Surgeon: Matt Ulrich MD; Location: [facility] MAIN OR; Service:General SPINE SURGERY N/A 01/04/2021 [...] op ddAC/Taxane chemo for her high risk ER/TN positive large RIGHT BREAST Carcinoma. She has [...] agent therapy, also reinforced via consult [email or web address] [place]. Now being seen post hospital [...] help with use of Cymbalta. Was at [facility] and wanting to request transfer of [facility] records to oncology clinic there. ECOG [...] Device fluticasone propionate (FLONASE) 50 mcg/actuation Nasl [place], Suspension Inhalational Spacing Device (AEROCHAMBER MV) Misc [...] Gran% 0.2 % Lymph Percent 23.4 % [place] Percent 5.7 % Eos Percent 2.1 % Baso Percent 0.2 % Neut # 5.6 1.6 - 6.1 x10(3)/mcL IMMGRAN# 0.0 0.0 - 0.1 x10(3)/mcL Lymph # 1.9 1.2 - 3.9 x10(3)/mcL [place] # 0.5 0.3 - 0.9 x10(3)/mcL Eos# [...] G43.719-Chronic migraine without aura, intractable, without status [id number]. COMPARISON: Multiple priors with the latest MRI [...] Performing Provider Shaylee Roque???LOUIE Restrepo CRNA, RN Building Cleaning Supervisor Madelyn Sidhu RN Endoscopy Nurse Aliya [...] outside facility Neurosurgeon (Dr Benoit Duke at [facility]) and no need for surgical resection now, surveillance plan defined in his note of 02/24/24 noted Chemo induced anemia - as expected, stable cont 1 tab MVI po daily, asked for borderline VIT B12 tostart VIT B12 1000 mcg po daily otc PE/ Prothrombin gene carrier - obtaining records from [facility], meanwhile stay on FDAapproved dosing of [...] Tacho Echavarria MD Hematology and Medical Oncology [facility] [phone] *This note was dictated using voice recognition [...] also performed on this calendar day: d/w Windows Systems Architect about her care and symptom burden/depression * Rosana Gupta RN - 02/04/2025 2:20 PM EDT Fax sent to Medical Records at [facility] Request for records from most recent [...] 11:40 AM EDT Office Visit [facility] [address] [place] [address] [place] [address] [place] [address] 03/02/2025 12:45 PM EDT Procedure visit [facility] [address] [place] [address] Samm Ledesma APRN [address] [place] [address] 03/10/2025 12:30 PM EDT Appointment [facility] [place] [address] 03/10/2025 1:00 PM EDT [facility]ointment [facility] [place] [address] Tacho Echavarria MD [address] [place] [address] 04/29/2025 9:15 AM EDT Appointment [facility] [place] [place] [address] Batool Celis MD [address] [place] [address] [facility] [place], [place] [phone] 05/19/2025 2:15 PM EST Office Visit [facility] [address] [facility] [address] [place] [address] Sin Tran MD [facility] [place] [address] 08/12/2025 10:40 AM EST Appointment [facility] Women's Wellness [place] [facility] [place] [address] Matt Ulrich MD [address] [facility] [address] [place] [address] documented as of this encounter Goals Goal Patient Goal Type Associated Problems Recent Progress Patient-Stated? Author Blood Pressure < 140/90 Blood Pressure 121/77(02/04 2:04 PM EDT) No Chetna Cedeno MD Breast [facility] Breast Health On track(2024 11:27 AM EDT) No Jasmin Porter, RAUL Note: Patient acknowledges understanding of new diagnosis, plan of care, available resources and how to contact Nurse Navigator with any future questions or concerns. Breast [facility] Breast Health Not on track(2024 11:27 AM EDT) No Jasmin Potrer, RAUL Note: Patient will be compliant with monthly SBE and is aware of who to contact for any unusual or concerning findings. Breast [facility] Breast Health On track(2024 11:27 AM EDT) [...] documented as of this encounter Care Teams Music Theory Professor Relationship Specialty [place] [address] [place] [address] PCP - General 06/21/10 Arlyn Schmidt MD [address] [place], [place] [id number] Consulting Physician Internal Medicine-Endocrinology, Diabetes & Metabolism 11/28/20 Tacho Echavarria MD 1 [place] [address] Internal Medicine-Medical Oncology 11/12/23 Matt Ulrich MD 1 [place] [address] Surgery-Surgical Oncology 12/04/23 Eze Brock Pastoral Care 12/13/23 Annette Walker MSW Fitness And Wellness Instructor 05/13/24 Batool Celis MD 1 [facility] [place] [address] Radiation Oncologist Radiology-Radiation Oncology 06/08/24 documented as of this encounter
--- OUTSIDE RECORDS SUMMARY | 2025-02-10 10:30 | XMS_ITS | Encounter Summary ---
Author Organization [place] [address] Care Team Providers Care Operations/Dispatch Name Role Phone Chetna Cedeno MD Primary Care Provider [phone] Arlyn Schmidt MD Unavailable [phone] Tacho Echavarria MD Unavailable [phone] Matt Ulrich MD Unavailable [phone] Eze Brock Unavailable Annette Walker Unavailable [phone] Batool Celis MD Unavailable [phone] Reason for Visit * Reason Comments Follow-up Pump Refill Encounter Details Date Type Department Care Team (Late st Contact Info) Description 02/10/2025 10:30 AM EDT Office Visit [facility] Spine [address] [address] Sin Tran MD [address] [place] [address] Chronic pain syndrome (Primary Dx); Post [...] doctor or pharmacy? Never 11/07/2023 [facility] Utilities Answer Date Recorded In the [...] 5 07/07/2024 [facility] - Occupational Stress Questionnaire Answer Date [...] in a long-term (including now)? No 11/07/2023 [facility] IP Transportation Answer D ate Recorded In [...] No edema, warmth, erythema, or fluctuance. The Enodo Software analyzer was used to interrogate the SynchroMed [...] well Sin Tran MD Interventional Pain Management [facility] documented in this encounter Plan of Treatment Upcoming Encounters Date Type Department Care Team (Late st Contact Info) Description 03/02/2025 11:40 AM EDT Office Visit [facility] [address] [place] [address] [place] [address] [place] [id number] 03/02/2025 12:45 PM EDT Procedure visit [facility] 7370 [facility] [address] [place] [address] Samm Ledesma APRN [address] [facility] [address] [place] [address] 03/10/2025 12:30 PM EDT Appointment [place] [address] 03/10/2025 1:00 PM EDT Appointment [facility] [place] [address] Tacho Echavarria MD [address] [place] [address] 04/29/2025 9:15 AM EDT Appointment [facility] [place] [address] Batool Celis MD 1 [facility] [place] [address] 05/19/2025 2:15 PM EST Office Visit [facility] [address] [place] [address] Sin Tran MD [address] [place] [address] [place] [address] 08/12/2025 10:[address] [facility] Women's Wellness [facility] [place] [phone] Matt Ulrich MD 20 [facility] 254 [place] [address] documented as of this encounter Goals Goal Patient Goal Type Associated Problems Recent Progress Patient-Stated? Author Blood Pressure < 140/90 Blood Pressure 121/77(02/04 2:04 PM EDT) No Chetna Cedeno MD Breast [facility] Breast Health On track(2024 11:27 AM EDT) No Jasmin Porter, RAUL Note: Patient acknowledges understanding of new diagnosis, plan of care, available resources and how to contact Nurse Navigator with any future questions or concerns. Breast [facility] Breast Health Not on track(2024 11:27 AM EDT) No Jasmin Porter, RAUL Note: Patient will be compliant with monthly SBE and is aware of who to contact for any unusual or concerning findings. Breast [facility] Breast Health On track(2024 11:27 [...] documented as of this encounter Care Teams Operations/Dispatch Relationship Specialty Start [place] [address] [place] [address] PCP - General 06/21/10 Arlyn Schmidt MD [address] [place] [address] Consulting Physician Internal Medicine-Endocrinology, Diabetes & Metabolism 11/28/20 Tacho Echavarria MD 1 [place] [address] Internal Medicine-Medical Oncology 11/12/23 Matt Ulrich MD 1 [place], [place] [address] Surgery-Surgical Oncology 12/04/23 Eze Brock Pastoral Care 12/13/23 Annette Walker MSW Toxics Program Officer 05/13/24 Batool Celis MD 1 [facility] [place], [place] [address] Radiation Oncologist Radiology-Radiation Oncology 06/08/24 documented as of this encounter
[2025-02-11 15:45] LABS: Chloride 106 mmol/L (98-107); Potassium 3.7 mmoL/L (3.5-5.1); Sodium 141 mmol/L (136-145)
[2025-02-11 15:48] LABS: Anion Gap 12.7 mEq/L (5-15); Blood Urea Nitrogen 10 mg/dl (7-17); Calcium 8.7 mg/dl (8.4-10.2); Carbon Dioxide 26 mmol/L (22.0-30.0); Creatinine,Serum 0.70 mg/dl (0.52-1.04); Estimated Glomerular Filt Rate 86 ml/min (>60); GFR (African American) 104 ML/MIN (>60); Glucose 91 mg/dl (74-100)
[2025-02-11 17:00] LABS: 25-OH Vitamin D, Total 46.5 ng/mL (30-100)
--- OUTSIDE RECORDS SUMMARY | 2025-02-12 11:04 | XMS_ITS | Encounter Summary ---
Author Organization [place] [address] Care Team Providers Care Sales Inspector Name Role Phone Chetna Cedeno MD Primary Care Provider [phone] Arlyn Schmidt MD Unavailable [phone] Tacho Echavarria MD Unavailable [phone] Matt Ulirch MD Unavailable [phone] Eze Brock Unavailable Cheryl Nair RN Unavailable [phone] Annette Walker WASTEWATER PROCESS ENGINEER Unavailable [phone] Batool Celis MD Unavailable [phone] Encounter Details Date Type Department Care Team (Late st Contact Info) Description 09/11/2024 Lab Requisition [facility] [place] [address] Beata Kebede MD [address] [place] [address] Social History Tobacco Use Types Packs/Day Years [...] doctor or pharmacy? Never 11/07/2023 [facility] Utilities Answer Date Recorded In the [...] any clubs o r organizations such as mormonism groups, unions, fraternal or athletic groups, or [...] Date Recorded PHQ-2 Total Score 5 07/07/2024 [facility] - [...] a long term (including now)? No 11/07/2023 [facility] IP Transportation Answer D ate Recorded In [...] AM EDT Office Visit [facility] [address] [place] [address] [place] [address] [place] [address] 03/02/2025 12:45 PM EDT Procedure visit [facility] [address] [place] [address] Samm Ledesma, DEVELOPMENT ASSOCIATE [address] [place] [address] 03/10/2025 12:30 PM EDT Appointment [facility] [place], [place] [id number] 03/10/2025 1:00 PM EDT Appointment [facility] Medical Oncology [place], [place] [id number] Tacho Echavarria MD [address] [place] [address] [id number] 04/29/2025 9:15 AM EDT Appointment [facility] [place] [place] [address] Batool Celis MD [address] [place] [address] [place] [address] 05/19/2025 2:15 PM EST Office Visit [address] [place] [address] Sin Tran MD [facility] [place] [address] 08/12/2025 10:40 AM EST Appointment [facility] Women's [facility] [place] [facility] [place] [address] Matt Ulrich MD [address] [place] [address] [address] [place] [address] documented as of this encounter Goals Goal Patient Goal Type Associated Problems Recent Progress Patient-Stated? Author Blood Pressure < 140/90 Blood Pressure 121/77(02/04 2:04 PM EDT) No Chetna Cedeno MD Breast [facility] Breast Health On track(2024 11:27 AM EDT) No Jasmin Porter RN Note: Patient acknowledges understanding of new diagnosis, plan of care, available resources and how to contact Nurse Navigator with any future questions or concerns. Breast [facility] Breast Health Not on track(2024 [...] EST) CASE REPORT Surgical Pathology Report Case: [id number] Authorizing Provider: Beata Kebede MD Collected: 09/11/20243 Ordering Location: [facility] Received: 09/11/20241312 Pathologist: Diane Ellis MD Specimen: Breast, Request for cases [id number], [id number] slides to [facility]. 09/15/2024 12:14 PM EDT [facility] FINAL DIAGNOS[facility] Results will be scanned in this case as an addendum. 09/15/2024 12:14 PM EDT [facility] at 1338 EST EMBEDDED IMAGES 09/15/2024 12:14 PM EDT [facility] ADDENDUM Refer to Scanned Surgical Pathology Report for [id number] & [id number]. 09/15/2024 12:14 PM EDT [facility] Addendum electronically signed by Diane Ellis MD on 09/15/2024 at 1214 EDT Tissue BREAST STRUCTURE / Unknown 09/11/2024 1:13 PM EST 09/11/2024 1:13 PM EST us Beata Kebede MD PATHOLOGY ORDERABLES Edited R esult - Final [facility] [address] [place] [id number] documented in this encounter Visit Diagnoses Not on filedocumented in this encounter Additional Health Concerns Infection Onset Date Last Indicated Resolved Time COVID-19 09/04/2024 09/04/2024 09/24/2024 10:1 2 PM EDT Assessment Noted Time PHQ-9 Depression Total Score: 17 024 8:39 AM EST PHQ-2 Depression Total Score: 5 07/07/20 24 8:39 AM EST documented as of this encounter Care Teams Sales Inspector Relationship Specialty [place] [address] [place] [address] PCP - General 06/21/10 Arlyn Schmidt MD [address] [place], [place] [id number] Consulting Physician Internal Medicine-Endocrinology , Diabetes & Metabolism 11/28/20 Tacho Echavarria MD [address] [place], [place] [id number] Internal Medicine-Medical Oncology 11/12/23 Matt Ulrich MD [address] [place] [id number] Surgery-Surgical Oncology 12/04/23 Eze Brock Pastoral Care 12/13/23 Cheryl Nair, RN Oncology Nurse Navigator 03/25/2412/13 Annette Walker, WASTEWATER PROCESS ENGINEER Group President 05/13/24 Batool Celis MD 1 [facility] C[facility] [place], [place] [phone] Radiation Oncologist Radiology-Radiation Oncology 06/08/24 documented as of this encounter
--- OUTSIDE RECORDS SUMMARY | 2025-02-12 11:04 | XMS_ITS | Encounter Summary ---
Author Organization [place] [address] Care Team Providers Care Veneer Grader Name Role Phone Chetna Cedeno MD Primary Care Provider [phone] Arlyn Schmidt MD Unavailable [phone] Tacho Echavarria MD Unavailable [phone] Matt Ulrich MD Unavailable [phone] Eze Brock Unavailable Annette Walker Unavailable [phone] Batool Celis MD Unavailable [phone] Encounter Details Date Type Department Care Team (Late st Contact Info) Description 01/15/2025 Plan of Care Documentation [facility] Physical Therapy [address] [place] [address] Social History Tobacco Use Types [...] Date Recorded PHQ-2 Total Score 5 07/07/2024 [facility] Occupat ional Health - Occupational [...] in a fpc (including now)? No 11/07/2023 [facility] IP Transportation Answer D ate Recorded [...] AM EDT Office Visit [facility] [place] [facility] [address] [place] [address] [place] [address] [place] [address] 03/02/2025 12:45 PM EDT Procedure visit [facility] [address] [place] [address] Samm Ledesma, PROCESSING TECHNOLOGIST [address] [place] [address] 03/10/2025 12:30 PM EDT Appointment [facility] [place], [place] [phone] 03/10/2025 1:00 PM EDT Appointment [facility] Medical Oncology [place], [place] [phone] Tacho Echavarria MD [address] [place] [address] [phone] 04/29/2025 9:15 AM EDT Appointment [facility] RAD ONC [place], [place] [phone] Batool Celis MD [address] [place] [address] CANCER CARE [place], [place] [id number] 05/19/2025 2:15 PM EST Office Visit [place] [address] [address] [place] [address] Sin Tran MD [address] [place] [phone] 08/12/2025 10:40 AM EST Appointment [facility] Women's Wellness [place] [facility] [place] [phone] Matt Ulrich MD [address] [place] [address] [place] [address] documented as of this encounter [...] as of this encounter Care Teams Veneer Grader Relationship Specialty [place] [address] [address] [facility] [place] [id number] PCP - General 06/21/10 Arlyn Schmidt MD [address] [place] [address] Consulting Physician Internal Medicine-Endocrinology, Diabetes & Metabolism 11/28/20 Tacho Echavarria MD [address] [place] [id number] Internal Medicine-Medical Oncology 11/12/23 Matt Ulrich MD 1 [place] [id number] Surgery-Surgical Oncology 12/04/23 Eze Brock Pastoral Care 12/13/23 Annette Walker, ARACELI Key Worker 05/13/24 Batool Celis MD 1 [facility] [place] [address] Radiation Oncologist Radiology-Radiation Oncology 06/08/24 documented as of this encounter
--- OUTSIDE RECORDS SUMMARY | 2025-02-12 11:04 | XMS_ITS ---
Author Organization [facility] VELIZJude OD Address [facility] [place] [address] Phone Care Team Providers Care Health And Safety Manager Name Role Phone Chetna Cedeno MD Primary Care Provider [phone] Arlyn Schmidt MD Unavailable [phone] Tacho Echavarria MD Unavailable [phone] Matt Ulrich MD Unavailable [phone] Eze Brock Unavailable Annette Walker Unavailable [phone] Batool Celis MD Unavailable [phone] Problems * This document contains information received from the source organization and may not represent a complete record from that organization. Patient Care Coordination No te Formatting of this note migh t be different from the original. [facility] - Sin Tran MD Controlled Substance Protocol Completed: A. Informed Consent Statement signed (Yearly) 07/24/2023 B. Controlled Substance Agreement signed (Yearly) 07/24/2023 C. Comprehensive Urine Drug Screen was performed (Minimum YEARLY ) ( 07/24/2023 ) D. Josh report completed (EVERY 3 MONTHS) ( 02/09/25 ) E. Screening tool for addiction (SOAPP) completed (YEARLY) F. Need for controlled substance is documented (EVERY VISIT) G. Pain Scale and or Functional capacity documented (EVERY VISIT)01/03/2022 Pharmacy: [facility] [address] [address] [address] [facility] [phone] AIS POA: 02/10/2025 josh as expected #[id number] Josh 08-05-2018 adm Josh 08-14-18 adm UDS 08-08-18 adm Care gap audit completed by Medina White RN on 01/01/2022. 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 Given her desire for left MTX, will plan for screening mammo annual until surgery completed. - Continue Aromasin + Verzenio - follows with Dr. Echavarria - Reviewed and discussed survivorship care plan and assessed emotional, sexual, and physical health needs in detail with patient. All surveillance and health maintenance information reviewed. - Reinforced sun protection and preventative health maintenance - Pt with good emotional and physical support from friends and family - Pt encouraged to continue monthly SBE. - Discussed importance of diet and exercise for risk reduction and overall health benefits. Orders: AMB REFERRAL [facility] Assessment & Plan (07/24/2024 3:38 PM EST): [...] mg/m2 (420 mg) 0 mg/m2 (0 mg) Treatment Summaries 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)* Cancer Treatment Plan and Summary Provided by [facility] General Information Patient name Meri Cole Date of 1965 Age 59 y.o. Care Team Medical Oncologist Dr. Tacho Echavarria Surgeon Dr. Matt Ulrich Radiation Oncologist Dr. Batool Celis Primary Care Physician Chetna Cedeno MD Cancer Diagnosis Information Diagnosis date 10/29/23 Diagnosis and Staging information Invasive Ductal Carcinoma, right breast Clinical Stage IIIB (cT3, cN3a(f), M0, G3, ER+, UT+, Her2-) Pathologic Stage y(pT3, pN3a, G3 ER+, UT+, Her2-) Tumor markers Breast: Estrogen Receptor positive (92%) Progesterone Receptor positive (55%) Her-2 negative Background Information/Additional Screening Recommendations Genetics testing Negative ([facility] Hereditary Cancer 67-gene panel) Tobacco use Nonsmoker. Treatment Summary Surgery 07/06/24 - Right breast mastectomy with sentinel lymph node dissection Chemotherapy 12/05/23 Start of C1D1 of pre op AC dose dense chemo, with PEG-GCSF support as part ofAdria/Cytoxan x 4-> Taxol x12 weekly regimen 10/08/24 Anastrozole 1mg po daily x 10 yr + Verzenio 50mg po bid and titrate up to GI tolerance for2 yr planned (Tresckow-E regimen) Radiation therapy External beam radiotherapy to a total dose of 60 Gy; 50 Gy to right chest wall and regional lymph nodes including internal mammary + 10 Gy boost to the undissected nodes. Delivered in a total of 30 fractions Endocrine Therapy Arimidex started 10/08/24 + Verzenio. Changed to Aromasin give [facility] Oncology Timeline Oncology History Invasive ductal carcinoma of breast, [...] thirteen lymph nodes, positive for metastatic carcinoma (13/). 07/23/2024 - Pathology JOI ORDERED: Positive cell free DNA 08/03/2024 - 06/07/2025 Chemotherapy Anastrozole 1mg po daily x 10 yr + Verzenio 50mg po bid and titrate up to GI tolerance for 2 yr planned (Tresckow-E regimen) 10/2024 - changed to Aromasin d/t [...] (HCC) 10/28/2024 - Genetics Oneome testing today Breast Cancer Surveillance Recommendations Follow-up Recommendations Surgeon Visits Every 6 months x 2, then annually x 5 years Medical Oncology Visits Every 3-6 months, or as directed Radiation Oncology Visits Every 6 months x 2, then annually x 5 years Imaging Left screening mammogram annually, Right to evaluate symptoms. General Health Continue follow-up with PCP and SCREEN PRINTER as directed Recommendations Self-care plan: What you can do to stay healthy after treatment for breast cancer Cancer treatments may increase your chance of developing other health problems years after you havecompleted treatment. The purpose of this self-care plan is to inform you about what steps you can take to maintain good health after cancer treatment, including coping with side effects of treatment,reducing the risk of cancer returning, and watching for signs of cancer returning or of a new cancer. Keep in mind that every person treated for breast cancer is different and that these recommendations are not intended to be a substitute for the advice of a doctor or other healthcare professional.Please use these recommendations to talk with your doctor and healthcare team about an appropriate follow up care plan for you. You should have a medical history and physical exam that is focused on detecting signs of cancer recurrence or of new cancers as directed by your physician. The frequency of these exams may vary depending on the stage of cancer and other risk factors. If you had breast cancer once, there is a chance that it may come back or spread to other parts of your body. This is important because most recurrent breast cancer is suspected or found by women themselves, and the majority of recurrences are detected between scheduled visits. After treatment, if you feel something isn???t right with your body,see your regular doctor, physician assistant associate professor, or nurse practitioner. If what you are feeling is urgent, go to an Urgent Care or Medical Walk-in Clinic. Tell the medical provider you had cancer and show them a copy of your cancer treatment summary. Become aware of your personal breast health, this includes monthly self-breast exams. Signs and symptoms to report for potential local recurrence Nipple discharge that is clear or blood tinged New onset of breast/chest wall pain A new lump Thickening or a lump in breast tissue or on the chest wall after a mastectomy Changes in the skin including dimpling, scaly appearance, rash, redness or discoloration on the breast or chest wall A lump or thickening in the underarm area Monitoring for potential regional or distant recurrence New lump or thickening in the area above the collarbone Chronic bone pain or tenderness in an area Chest pain with shortness of breath Chronic cough Persistent abdominal pain or abdominal swelling Headaches, dizziness, fainting or rapid changes in vision Increasing fatigue unrelated to treatments Inability to control urine or bowels Persistent nausea or loss of appetite Changes in weight, especially weight loss Potential late effects of treatment After surgery you may experience numbness, weakness, intermittent discomfort or loss of the range of motion and/or swelling (lymphedema) in the affected arm After chemotherapy/biotherapy you may experience fatigue, weight gain, early menopause, numbness and tingling in your hands and feet, cognitive dysfunction, sexual dysfunction, psychosocial distress,osteoporosis, or cardiac dysfunction if you received an anthracycline or trastuzumab After radiation therapy you may experience breast pain, fibrosis in the affected breast, or changesin the shape or size of the affected breast Hormone therapy such as Aromatase inhibitors may cause increased risk of osteoporosis and bone fractures, hot flashes and arthralgia (pain in joints). LIFE AFTER CANCER TREATMENT Managing fatigue Fatigue is one of the most common complaints of cancer survivors. Here are some ideas to help you manage your fatigue. Plan your day. Be active at the time of day you feel most alert and energetic. Save you energy by planning how you do things. For example sit on a stool when you cook or wash dishes. Take short naps or rest breaks Try to go to sleep and wake up at the same time every day Do what you enjoy but try to focus on interests that don???t tire you out. Let others help you. Choose how to spend your energy. Think about joining a support group Emotional difficulties Cancer survivors often experience a variety of positive and negative emotions, including relief, a sense of gratitude to be alive, fear of recurrence, anger, guilt, depression, anxiety, and isolation. Cancer survivors, caregivers, family, and friends may also experience post-traumatic stress disorder, an anxiety disorder that may develop after experiencing an extremely frightening or life-threatening situation. Each person???s post-treatment experience is different. For example, some survivors struggle with negative emotional effects of the cancer while others say that they have a renewed, positive outlook on life because of the cancer. Talk with a healthcare provider about your concerns Think about joining a support group Regular physical exercise Sexuality after breast cancer Breast cancer has changed many things in your life. One of the potential changes may be in the areaof your return to normal sexual function. Breast cancer and its treatment may alter the way you feel about your body, threatening your sense of femininity. Some women may have concerns about their sexual attractiveness to their partner. These feelings are normal. It is important to include your part ner when viewing the incisional area even though it may be a difficult time. Remember, you are still the same loving person your partner selected and surgery did not change that. During treatment you may have experienced fatigue and side effects from treatments that may have affected sexual functioning. These are normal interruptions that will resolve after treatments end. Chemotherapy can create additional side effects which occur when ovarian function is affected. This can cause vaginal dryness and lack of sexual desire. A longer period of time may be required for sexual arousal. 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
--- OUTSIDE RECORDS SUMMARY | 2025-02-12 11:06 | XMS_ITS | Encounter Summary ---
Author Organization [place] [address] Care Team Providers Care Level Vial Curvature Gauger Name Role Phone Chetna Cedeno MD Primary Care Provider [phone] Arlyn Schmidt MD Unavailable [phone] Tacho Echavarria MD Unavailable [phone] Matt Ulrich MD Unavailable [phone] Eze Brock Unavailable Annette Walker Unavailable [phone] Batool Celis MD Unavailable [phone] Encounter Details Date Type Department Care Team (Late st Contact Info) Description 01/13/2025 Plan of Care Documentation [facility] Physical Therapy [address] [place] [address] Social History Tobacco Use Types [...] from your doctor or pharmacy? Never 11/07/2023 [facility] Utilities Answer Date Recorded In [...] any clubs o r organizations such as sikhism groups, unions, fraternal or athletic groups, or [...] in a custodial (including now)? No 11/07/2023 [facility] IP Transportation Answer D ate [...] to walk with no AD by then, [place] (but pt states that she was told this may have been a misdiagnosis), currently taking chemo pill, R mastectomy Jun 2024, radiation ended 09/25/24, chronic back issues with sciatica Physician: Jericho ESCOBAR Follow Up: 11/11/24 Evaluation Date: 10/30/24 Reassessment Due: 12/26/24 Primary Insurance: MEDICAID /[facility] [id number] [facility] Secondary Insurance: n/a Insurance Authorization: AMB REFERRAL TO PHYSICAL THERAPY Authorized (10/08/2024-01/28/2025) Visits Requested Visits Authorized Visits Completed Visits Scheduled -- Details Referral ID: [id number] Authorization Status Reason: Received Carrier Authorization Authorization Comments: -- Referred To: Shaunna Workman PT at [facility] PT Referred By: Tacho Echavarria MD at [facility] CANCER CTR MED ONC, [facility] Date: 10/08/2024 Referral Reasons: Specialty Services Required [...] other week Needs Assistance: No Understood: Yes 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 pt verbalized understanding of this again. senior storage administrator // bars with unilat UE support [...] arm swing during gait [] NMR education senior storage administrator // bars with no support with [...] up about 2 days ago. Access Code: [email or web address] URL: [email or web address] Date: 11/11/2024 Prepared by: Romana Bowman Exercises [...] will be Independent with HEP to improve halfway health and reduce risk for injury. indbut [...] increase from 727 feet with RW to 9138-9313 feet with LRAD to improve gait elisha [...] away. Treatments to consist of Therapeutic exercise 82702, Neuromuscular re-education 32395, Manual soft tissue and/or joint mobilization 39030, Patient education, Therapeutic activity 91908, and Gait training 49651. Electronically signed by: Signed: Shaunna Workman PT Date: 01/13/2025 documented in this encounter Plan of Treatment Upcoming Encounters Date Type Department Care Team (Late st Contact Info) Description 03/02/2025 11:40 AM EDT Office Visit [facility] [address] [place] [address] [place] [address] [place] [address] 03/02/2025 12:45 PM EDT Procedure visit [facility] [address] [facility] [address] [place] [address] Samm Ledesma APRN [address] [facility] [address] [place] [address] 03/10/2025 12:30 PM EDT Appointment [facility] [place], [place] [id number] 03/10/2025 1:00 PM EDT [facility]ointment [facility] [place] [address] Tacho Echavarria MD [address] [place] [address] [id number] 04/29/2025 9:15 AM EDT Appointment [facility] [place] [place] [address] Batool Celis MD [address] [place] [address] [place] [address] 05/19/2025 2:15 PM EST Office Visit [facility] [address] [facility] [address] [place] [address] Sin Tran MD [address] [place] [address] 08/12/2025 10:40 AM EST Appointment [facility] [place] [address] Matt Ulrich MD [address] [place] [address] [address] [place] [address] documented as of this encounter Goals Goal [...] documented as of this encounter Care Teams Level Vial Curvature Gauger Relationship Specialty [place] [address] [place] [address] PCP - General 06/21/10 Arlyn Schmidt MD [address] [place] [address] Consulting Physician Internal Medicine-Endocrinology, Diabetes & Metabolism 11/28/20 Tacho Echavarria MD 1 [place] [address] Internal Medicine-Medical Oncology 11/12/23 Matt Ulrich MD 1 [place], [place] [phone] Surgery-Surgical Oncology 12/04/23 Eze Brock Pastoral Care 12/13/23 Aaron Annette, CABLE FORMER Grazing Examiner 05/13/24 Batool Celis MD [address] [place] [address] [place] [address] Radiation Oncologist Radiology-Radiation Oncology 06/08/24 documented as of this encounter
--- OUTSIDE RECORDS SUMMARY | 2025-02-12 11:06 | XMS_ITS | Encounter Summary ---
Author [place] [address] Care Team Providers Care Supervisor Propellant Charge Loading Name Role Phone Chetna Cedeno MD Primary Care Provider [phone] Arlyn Schmidt MD Unavailable [phone] Tacho Echavarria MD Unavailable [phone] Matt Ulrich MD Unavailable [phone] Eze Brock Unavailable Annette Walker Unavailable [phone] Batool Celis MD Unavailable [phone] Reason for Visit * Reason Comments Medication Refill Encounter Details Date Type Department Care Team (Late st Contact Info) Description 01/14/2025 Refill [facility] [place], [place] [phone] Tacho Echavarria MD [address] [place] [address] [phone] Medication Refill Social History Tobacco Use Types [...] from your doctor or pharmacy? Never 11/07/2023 [facility] Utilities Answer Date Recorded In [...] any clubs o r organizations such as mandaen groups, unions, fraternal or athletic groups, or [...] time in the past 12 m [facility], were you homeless or living in a detention (including now)? No 11/07/2023 [facility] IP Transportation Answer D ate [...] 11:40 AM EDT Office Visit [facility] [address] [place] [address] [place] [address] [place] [address] 03/02/2025 12:45 PM EDT Procedure visit [facility] [address] [facility] [address] [place] [address] Samm Ledesma, PROCESSING MANAGER [address] [facility] 100 [place] [address] 03/10/2025 12:30 PM EDT Appointment [facility] [place], [place] [phone] 03/10/2025 1:00 PM EDT [facility]ointment [place] [address] Tacho Echavarria MD [address] [place] [address] [phone] 04/29/2025 9:15 AM EDT Appointment [place] [address] Batool Celis MD [address] [place] [address] 05/19/2025 2:15 PM EST Office Visit [address] [address] Sin Tran MD [address] [place] [address] 08/12/2025 10:40 AM EST Appointment [facility] Women's Wellness [facility] [place] [address] Matt Ulrich MD [address] [place] [address] 254 [place] [address] documented as of this encounter Goals Goal [...] as of this encounter Care Teams Supervisor Propellant Charge Loading Relationship Specialty [place] [address] [place] [address] PCP - General 06/21/10 Arlyn Schmidt MD [address] [place] [address] Consulting Physician Internal Medicine-Endocrinology, Diabetes & Metabolism 11/28/20 Tacho Echavarria MD 1 [place] [address] Internal Medicine-Medical Oncology 11/12/23 Matt Ulrich MD 1 [place] [address] Surgery-Surgical Oncology 12/04/23 Eze Brock Pastoral Care 12/13/23 Aaron Annette, PUTTY AND PATCH WORKER Geology Associate 05/13/24 Batool Celis MD [address] [place] [address] [place] [address] Radiation Oncologist Radiology-Radiation Oncology 06/08/24 documented as of this encounter
--- OUTSIDE RECORDS SUMMARY | 2025-02-12 11:06 | XMS_ITS | Encounter Summary ---
Author [place] [address] Care Team Providers Care Site Project Manager Name Role Phone Chetna Cedeno MD Primary Care Provider [phone] Arlyn Schmidt MD Unavailable [phone] Tacho Echavarria MD Unavailable [phone] Matt Ulrich MD Unavailable [phone] Eze Brock Unavailable Annette Walker Unavailable [phone] Batool Celis MD Unavailable [phone] Reason for Visit * Reason Comments Medication Refill Encounter Details Date Type Department Care Team (Late st Contact Info) Description 01/15/2025 Refill [facility] [place], [place] [phone] Tacho Echavarria MD [address] [place] [address] [id number] Medication Refill Social History Tobacco Use Types [...] doctor or pharmacy? Never 11/07/2023 [facility] Utilities Answer Date Recorded In the [...] Date Recorded PHQ-2 Total Score 5 07/07/2024 [facility] - Occupational [...] (including now)? No 11/07/2023 [facility] IP Transportation Answer D ate [...] 11:40 AM EDT Office Visit [facility] [place] [address] [place] [address] [place] [address] [place] [address] 03/02/2025 12:45 PM EDT Procedure visit [facility] [address] [place] [address] Samm Ledesma, WIRELESS CONSTRUCTION MANAGER [address] [facility] [address] [place] [address] 03/10/2025 12:30 PM EDT Appointment [place] [address] 03/10/2025 1:00 PM EDT Appointment [facility] [place], [place] [phone] Tacho Echavarria MD [address] [place] [address] 04/29/2025 9:15 AM EDT Appointment [facility] RAD ONC [place], [place] [phone] Batool Celis MD 1 [facility] [address] 05/19/2025 2:15 PM EST [facility] 4900 [facility] [address] [place] [address] Sin Tran MD [address] [place], [place] [address] [address] 08/12/2025 10:40 AM EST Appointment [facility] Women's Wellness [place] [facility] [place] [phone] Matt Ulrich MD 20 [facility] 254 [place] [address] documented as of this encounter Goals Goal Patient Goal Type Associated Problems Recent Progress Patient-Stated? Author Blood Pressure < 140/90 Blood Pressure 121/77(02/04 2:04 PM EDT) No Chetna Cedeno MD Breast [facility] Breast Health On track(2024 11:27 AM EDT) No Jasmin Porter, RAUL Note: Patient acknowledges understanding of new diagnosis, plan of care, available resources and how to contact Nurse Navigator with any future questions or concerns. Breast [facility] Breast Health Not on track(2024 [...] documented as of this encounter Care Teams Site Project Manager Relationship Specialty [place] [address] [place] [address] PCP - General 06/21/10 Arlyn Schmidt MD [address] [place] [address] Consulting Physician Internal Medicine-Endocrinology, Diabetes & Metabolism 11/28/20 Tacho Echavarria MD 1 [place], [place] [phone] Internal Medicine-Medical Oncology 11/12/23 Matt Ulrich MD 1 [place] [address] Surgery-Surgical Oncology 12/04/23 Eze Brock Pastoral Care 12/13/23 Annette Walker, ARACELI Hood Maker 05/13/24 Batool Celis MD 1 [facility] [place] [address] Radiation Oncologist Radiology-Radiation Oncology 06/08/24 documented as of this encounter
--- OUTSIDE RECORDS SUMMARY | 2025-02-12 11:06 | XMS_ITS | Encounter Summary ---
Author Organization [place] [address] Care Team Providers Care Application Tester Name Role Phone Chetna Cedeno MD Primary Care Provider [phone] Arlyn Schmidt MD Unavailable [phone] Tacho Echavarria MD Unavailable [phone] Matt Ulrich MD Unavailable [phone] Eze Brock Unavailable Annette Walker Unavailable [phone] Batool Celis MD Unavailable [phone] Reason for Visit * Reason Onset Date Comments Symptom Call 01/15/2025 shakiness, light headed, cold chills, and breaking out in sweats Encounter Details Date Type Department Care Team (Late st Contact Info) Description 01/15/2025 Telephone [facility] On[facility] [place], [place] [phone] Tacho Echavarria MD [address] [place] [address] [phone] Symptom Call (shakiness, light headed, cold chills, [...] Date Recorded PHQ-2 Total Score 5 07/07/2024 [facility] Occupat ional Health - Occupational Stress [...] health care facility (including now)? No 11/07/2023 [facility] IP Transportation Answer D ate Recorded [...] of Assessment Author No 12/06/2022 2:08 PM Macarean Henson CCMA * Does this person have [...] be seen. Patient scheduled for 1:30 with LIVESTOCK FARMWORKER and 1:15 for labs. * Telephone Encounter [...] no What Location is the Patient seen at:[facility] Preferred call back number:[phone] Explained to the caller, if this is a medical emergency please call 911 or go to the nearest emergency room. documented in this encounter Plan of Treatment Upcoming Encounters Date Type Department Care Team (Late st Contact Info) Description 03/02/2025 11:40 AM EDT Office Visit [facility] [place] [facility] [address] [place] [address] [place] [address] [place] [address] 03/02/2025 12:45 PM EDT Procedure visit [facility] [address] [facility] [address] [place], [place] [phone] Samm Ledesma, LIVESTOCK FARMWORKER [address] [facility] [address] [place], [place] [address] 03/10/2025 12:30 PM EDT Appointment [facility] [place], [place] [phone] 03/10/2025 1:00 PM EDT Appointment [facility] Oncology [place], [place] [phone] Tacho Echavarria MD [address] [place] [address] [phone] 04/29/2025 9:15 AM EDT Appointment [facility] RAD ONC [place], [place] [phone] Batool Celis MD [address] [place] [address] CANCER CARE [place], [place] [phone] 05/19/2025 2:15 PM EST Office Visit [facility] [address] [place] [address] [address] [place] [address] Sin Tran MD [facility] [place] [address] 08/12/2025 10:40 AM EST Appointment [facility] Women's Wellness [place] [facility] [place] [address] Matt Ulrich MD [address] [place] [address] [place] [address] documented as of this encounter Goals Goal [...] - 145 mmol/L 01/15/2025 2:05 PM EDT [facility] Potassium 4.0 3.5 - 5.0 mmol/L 01/15/2025 2:05 PM EDT [facility] Chloride 107 98 - 107 mmol/L 01/15/2025 2:05 PM EDT [facility] Total CO2 25 22 - 29 mmol/L 01/15/2025 2:05 PM EDT [facility] Anion Gap 8 7 - 16 mmol/L 01/15/2025 2:05 PM EDT [facility] Calcium 9.3 8.6 - 10.4 mg/dL 01/15/2025 2:05 PM EDT [facility] Glucose Lvl 88 70 - 99 mg/dL 01/15/2025 2:05 PM EDT [facility] BUN 13 6 - 20 mg/dL 01/15/2025 2:05 PM EDT [facility] Creatinine 0.85 0.51 - 1.30 mg/dL 01/15/2025 2:05 PM EDT [facility] Albumin 4.0 3.5 - 5.2 gm/dL 01/15/2025 2:05 PM EDT [facility] Total Protein 6.7 6.4 - 8.3 gm/dL 01/15/2025 2:05 PM EDT [facility] Bili Total 0.3 0.2 - 1.3 mg/dL 01/15/2025 2:05 PM EDT [facility] ALT 8 <=41 U/L 01/15/2025 2:05 PM EDT [facility] AST 14 <=40 U/L 01/15/2025 2:05 PM EDT [facility] Alk Phos 124(H) 36 - 123 U/L 01/15/2025 2:05 PM EDT [facility] eGFR (CKD-EPIcr 2020) 79 >=60 mL/min/1.7 3 m2 01/15/2025 2:05 PM EDT [facility] Comment:Estimated GFR was ca lculated using the CKD-EPIcr (2020) equation refit without race. The equation is recommended by the National Kidney Foundation - [place] [employer] of Nephrology Task Force. Blood VENOUS BLOOD / Unknown Venipuncture / Unknown 01/15/2025 1:41 PM EDT 01/15/2025 1:44 PM EDT us Heydi Sorensen APRN CHEMISTRY ORDERABLES Final Res ult [facility] 1 [place] [address] * (ABNORMAL) CBC WITH DIFF (01/15/2025 1:41 PM EDT) WBC 4.5 3.7 - 10.3 x10(3)/mc L 01/15/2025 1:[address] [facility] RBC 3.40(L) 3.90 - 5.20 x10(6)/mc L 01/15/2025 1:49 PM EDT [facility] Hgb 10.3(L) 11.2 - 15.7 g/dL 01/15/2025 1:49 PM EDT [facility] Hct 31.7(L) 34.0 - 45.0 % 01/15/2025 1:49 PM EDT [facility] MCV 93.2 80.0 - 100.0 fL 01/15/2025 1:49 PM EDT [facility] MCH 30.3 26.0 - 34.0 pg 01/15/2025 1:49 PM EDT [facility] MCHC 32.5 30.7 - 35.5 g/dL 01/15/2025 1:49 PM EDT [facility] RDW 14.7 <=14.9 % 01/15/2025 1:[address] [facility] Platelet 165 155 - 369 x10(3)/mc L 01/15/2025 1:49 PM EDT [facility] MPV 8.4(L) 8.8 - 12.5 fL 01/15/2025 1:49 PM EDT [facility] Neut # Prelim 2.9 1.6 - 6.1 x10(3)/mc L 01/15/2025 1:49 PM EDT [facility] Comment:Preliminary automate d absolute neutrophil count. Value may change if manual differential is indicated. Neut Percent 64.2 % 01/15/2025 1:49 PM EDT [facility] Comment:Neutrophils equals s egs plus bands Imm Gran% 0.2 % 01/15/2025 1:49 PM EDT [facility] Comment:Automated count of m etamyelocytes, myelocytes and promyelocytes. Lymph Percent 28.3 % 01/15/2025 1:49 PM EDT [facility] Ferry Percent 5.3 % 01/15/2025 1:49 PM EDT [facility] Eos Percent 1.3 % 01/15/2025 1:49 PM EDT [facility] Baso Percent 0.7 % 01/15/2025 1:49 PM EDT [facility] Neut # 2.9 1.6 - 6.1 x10(3)/ L 01/15/2025 1:49 PM EDT [facility] Comment:Neutrophils equals s egs plus bands IMMGRAN# 0.0 0.0 - 0.1 x10(3)/mc L 01/15/2025 1:49 PM EDT [facility] Comment:Automated count of m etamyelocytes, myelocytes and promyelocytes. An absolute IG <0.1 is reported as 0.0. Lymph # 1.3 1.2 - 3.9 x10(3)/ L 01/15/2025 1:49 PM EDT [facility] Ferry # 0.2(L) 0.3 - 0.9 x10(3)/ L 01/15/2025 1:49 PM EDT [facility] Eos# 0.1 0.0 - 0.5 x10(3)/ L 01/15/2025 1:49 PM EDT [facility] Baso # 0.0 0.0 - 0.1 x10(3)/ L 01/15/2025 1:49 PM EDT [facility] Blood VENOUS BLOOD / Unknown Venipuncture / Unknown 01/15/2025 1:41 PM EDT 01/15/2025 1:44 PM EDT us Heydi Sorensen LIVESTOCK FARMWORKER HEMATOLOGY ORDERABLES Final Re sult [facility] [address] [place] [phone] documented in this encounter Visit Diagnoses Diagnosis Invasive ductal carcinoma of breast, female, right (HCC)- Primary Cold sweat Lightheaded Dizziness and giddiness Shakiness Abnormal involuntary movements documented in this encounter Additional Health Concerns Assessment Noted Time PHQ-9 Depression Total Score: 17 024 8:39 AM EST PHQ-2 Depression Total Score: 5 07/07/20 24 8:39 AM EST documented as of this encounter Care Teams Application Tester Relationship Specialty [place] [address] [place] [address] PCP - General 06/21/10 Arlyn Schmidt MD [address] [place] [address] Consulting Physician Internal Medicine-Endocrinology, Diabetes & Metabolism 11/28/20 Tacho Echavarria MD 1 [place] [address] Internal Medicine-Medical Oncology 11/12/23 Matt Ulrich MD 1 [place] [address] Surgery-Surgical Oncology 12/04/23 Eze Brock Pastoral Care 12/13/23 Annette Walker, WAREHOUSE RECEIVING SUPERVISOR Belt Sander Stone 05/13/24 Batool Celis MD 1 [facility] [place] [address] Radiation Oncologist Radiology-Radiation Oncology 06/08/24 documented as of this encounter
--- OUTSIDE RECORDS SUMMARY | 2025-02-12 11:06 | XMS_ITS | Encounter Summary ---
Author Organization [place] [address] Care Team Providers Care Wirer Helper Name Role Phone Chetna Cedeno MD Primary Care Provider [phone] Arlyn Schmidt MD Unavailable [phone] Tacho Echavarria MD Unavailable [phone] Matt Ulrich MD Unavailable [phone] Eze Brock Unavailable Annette Walker SENIOR CONTRACT SPECIALIST Unavailable [phone] Batool Celis MD Unavailable [phone] Encounter Details Date Type Department Care Team (Late st Contact Info) Description 12/29/2024 Social Work [facility] Cancer Care [facility] [place] [address] Annette Walker, SENIOR CONTRACT SPECIALIST Social History Tobacco Use Types Packs/Day Years [...] from your doctor or pharmacy? Never 11/07/2023 [facility] Utilities Answer Date Recorded In the past 12 months has Avail[employer], oil, or water [employer] threatened to shut off services in your [...] any time in the past 12 m [facility], were you homeless or living in a assisted (including now)? No 11/07/2023 [facility] IP Transportation Answer D ate Recorded [...] - 12/29/2024 4:05 PM EDT 12/29/24 1603 Water Leak Repairer Assessment Referred By Patient call Disease/[place] Site Snuff Maker Assignment Breast cancer Reason for Referral Community Supports Identified Needs Adjustment to illness;Housing Social Work Interventions Community Referral;Education/Information;Brief Couseling/Support (MUD TANK OPERATOR received call from Patient requesting 's letter for [facility] air conditioner program. MUD TANK OPERATOR drafted letter and co worker, Sonny Fleming MUD TANK OPERATOR will follow up with MD for signature and share with Patient.) documented in this encounter Plan of Treatment Upcoming Encounters Date Type Department Care Team (Late st Contact Info) Description 03/02/2025 11:40 AM EDT Office Visit [facility] [address] [place] [address] [place] [address] [place] [address] 03/02/2025 12:45 PM EDT Procedure visit [facility] [address] [place] [address] Samm Ledesma, SUPERINTENDENT TRACK [address] [facility] [address] [place] [address] 03/10/2025 12:30 PM EDT Appointment [place] [address] 03/10/2025 1:00 PM EDT Appointment Cancer Care Medical Oncology [place], [place] 16[address]117 Tacho Echavarria MD 1 [place] [address] 04/29/2025 9:15 AM EDT Appointment [facility] [place] [address] Batool Celis MD [address] [facility] [place] [address] 05/19/2025 2:15 PM EST Office Visit [facility] [address] [place] [address] [address] [place] [address] Sin Tran MD [address] [place] [address] 08/12/2025 10:40 AM EST Appointment [facility] Women's Wellness [place] [address] [facility] [place] [address] Matt Ulrich MD 20 [facility] [address] [place] [address] documented as of this encounter Goals Goal [...] documented as of this encounter Care Teams Wirer Helper Relationship Specialty [place] [address] [place] [address] PCP - General 06/21/10 Arlyn Schmidt MD [address] [place] [address] Consulting Physician Internal Medicine-Endocrinology, Diabetes & Metabolism 11/28/20 Tacho Echavarria MD 1 [place], [place] [id number] Internal Medicine-Medical Oncology 11/12/23 Matt Ulrich MD 1 [place] [address] Surgery-Surgical Oncology 12/04/23 Eze Brock Pastoral Care 12/13/23 Annette Walker MSW Snuff Maker 05/13/24 Batool Celis MD 1 [facility] [place] [address] Radiation Oncologist Radiology-Radiation Oncology 06/08/24 documented as of this encounter
--- OUTSIDE RECORDS SUMMARY | 2025-02-12 11:06 | XMS_ITS | Encounter Summary ---
Author Organization [place] [address] Care Team Providers Care Transportation Superintendent Name Role Phone Chetna Cedeno MD Primary Care Provider [phone] Arlyn Schmidt MD Unavailable [phone] Tacho Echavarria MD Unavailable [phone] Matt Ulrich MD Unavailable [phone] Eze Brock Unavailable Annette Walker Unavailable [phone] Batool Celis MD Unavailable [phone] Reason for Visit * Reason Comments Pharmacy Migraine Medication Management Qulipta Encounter Details Date Type Department Care Team (Latest Contact Info) Description 12/31/2024 Specialty Pharmacy [facility] [address] [place] [address] Annamarie Mark CPhT Pharmacy Migraine [...] th e electric, gas, oil, or water [employer] threatened to shut off services in your [...] any clubs o r organizations such as taoist groups, unions, fraternal or athletic groups, or [...] Date Recorded PHQ-2 Total Score 5 07/07/2024 [facility] [place] of Occupat ional Health - Occupational Stress [...] any time in the past 12 m [facility], were you homeless or living in a residential (including now)? No 11/07/2023 [facility] IP Transportation Answer D ate Recorded [...] Mark CPhT - 12/31/2024 11:07 AM EDT [facility] Qulipta RTS til 01/02 * Charlotte Martino CPhT - 12/31/2024 11:07 AM EDT Specialty Pharmacy Refill Coordination Note Contacted [facility] today regarding refills of Qulipta. Copay amount: $0 Sent Pee[employer] Mobile Digital message. Patient informed of copay. * Glenna Vo CPhT - 12/31/2024 11:07 AM EDT Specialty Pharmacy Refill Coordination Note Contacted [facility] today regarding refills of Qulipta. Medication to be delivered by [facility] on 01/07. Copay amount: $0 Sent Pee[employer] Mobile Digital message. Patient informed of copay. * Glenna Vo CPhT - 12/31/2024 11:07 AM EDT [facility] Medication has been released from [facility] but did not realize patient only has [...] Monson CPhT - 12/31/2024 11:07 AM EDT [facility] Patient will parts picker medication 01/06. documented in this encounter Plan of Treatment Upcoming Encounters Date Type Department Care Team (Late st Contact Info) Description 03/02/2025 11:40 AM EDT Office Visit [facility] [address] [place] [address] [place] [address] [place] [address] 03/02/2025 12:45 PM EDT Procedure visit [facility] [address] [place] [address] Samm Ledesma, SEWING DEMONSTRATOR [address] [address] [facility] [address] [place] [address] 03/10/2025 12:30 PM EDT Appointment [facility] [place], [place] [id number] 03/10/2025 1:00 PM EDT Appointment [place] [address] Tacho Echavarria MD [address] [place] [address] 04/29/2025 9:15 AM EDT Appointment [facility] RAD ONC [place], [place] 1444917 Batool Celis MD [address] [place] [address] [place] [address] 05/19/2025 2:15 PM EST Office Visit [address] [place] [address] Sin Tran MD [address] [place] [address] RD [place] [address] 08/12/2025 10:40 AM EST Appointment [facility] Women's Wellness [place] [address] [facility] [address] [place] [address] Matt Ulrich MD [address] [place] [address] [address] [place] [address] documented as of this [...] documented as of this encounter Care Teams Transportation Superintendent Relationship Specialty [place] [address] [place] [phone] PCP - General 06/21/10 Arlyn Schmidt MD [address] [place] [address] Consulting Physician Internal Medicine-Endocrinology, Diabetes & Metabolism 11/28/20 Tacho Echavarria MD 1 [place] [address] Internal Medicine-Medical Oncology 11/12/23 Matt Ulrich MD 1 [place] [address] Surgery-Surgical Oncology 12/04/23 Eze Brock Pastoral Care 12/13/23 Annette Walker, ARACELI Excel Vba Developer 05/13/24 Batool Celis MD 1 [facility] [place] [address] Radiation Oncologist Radiology-Radiation Oncology 06/08/24 documented as of this encounter
--- OUTSIDE RECORDS SUMMARY | 2025-02-12 11:06 | XMS_ITS | Encounter Summary ---
Author [place] [address] Care Team Providers Care Charger Operator Helper Name Role Phone Chetna Cedeno MD Primary Care Provider [phone] Arlyn Schmidt MD Unavailable [phone] Tacho Echavarria MD Unavailable [phone] Matt Ulrich MD Unavailable [phone] Eze Brock Unavailable Annette Walker Unavailable [phone] Batool Celis MD Unavailable [phone] Reason for Visit * Reason Comments Pharmacy Migraine Medication Management Ubrelvy Encounter Details Date Type Department Care Team (Latest Contact Info) Description 01/15/2025 Specialty Pharmacy [facility] [address] [place] [address] Annamarie Mark CPhT Pharmacy Migraine [...] pharmacy? Never 11/07/[address] [facility] Utilities Answer Date Recorded In the past 12 months has th e electric, gas, oil, or water [employer] threatened to shut off services in your [...] Total Score 5 07/07/2024 [facility] [place] of Occupat ional Health - Occupational Stress [...] in a longterm (including now)? No 11/07/2023 [facility] IP Transportation Answer D ate [...] AM EDT Specialty Pharmacy MyChart request [facility] requested a refill of Ubrelvy via [employer]. [employer] message was sent in response with appropriate questionnaire. Will f/u in 2 business days. documented in this encounter Plan of Treatment Upcoming Encounters Date Type Department Care Team (Late st Contact Info) Description 03/02/2025 11:40 AM EDT Office Visit [facility] [address] [place] [address] [place] [address] [place] [address] 03/02/2025 12:45 PM EDT Procedure visit [facility] NE[facility] [address] [facility] [address] [place] [address] Samm Ledesma, SETTER HELPER [address] [facility] [address] [place] [address] 03/10/2025 12:30 PM EDT Appointment [facility] [place], [place] [id number] 03/10/2025 1:00 PM EDT Appointment [place] [address] Tacho Echavarria MD [address] [place] [address] 04/29/2025 9:15 AM EDT Appointment [place] [address] Batool Celis MD [address] [facility] [address] [facility]ENTER [place], [place] [address] 05/19/2025 2:15 PM EST Office Visit [facility] [address] [place] [address] [address] [facility] 1[address] [place] [address] Sin Tran MD [address] [place] [address] [place] [address] 08/12/2025 10:40 AM EST Appointment [facility] Women's Wellness [place] [facility] Em[place] [facility] Matt Ulrich MD 20 [facility] 254 [place] [address] documented as of this encounter Goals Goal [...] documented as of this encounter Care Teams Charger Operator Helper Relationship Specialty [place] [address] [address] [facility] [phone] PCP - General 06/21/10 Arlyn Schmidt MD [address] [place], [place] [address] Consulting Physician Internal Medicine-Endocrinology, Diabetes & Metabolism 11/28/20 Tacho Echavarria MD 1 [place] [address] Internal Medicine-Medical Oncology 11/12/23 Matt Ulrich MD 1 [place], [place] [address] Surgery-Surgical Oncology 12/04/23 Eze Brock Pastoral Care 12/13/23 Annette Walker, FASHION JOURNALIST Potato Loader 05/13/24 Batool Celis MD 1 [facility] [place] [address] Radiation Oncologist Radiology-Radiation Oncology 06/08/24 documented as of this encounter
--- OUTSIDE RECORDS SUMMARY | 2025-02-12 11:06 | XMS_ITS | Encounter Summary ---
Author Organization [place] [address] Care Team Providers Care Product Technician Name Role Phone Chetna Cedeno MD Primary Care Provider [phone] Arlyn Schmidt MD Unavailable [phone] Tacho Echavarria MD Unavailable [phone] Matt Ulrich MD Unavailable [phone] Eze Brock Unavailable Annette Walker Unavailable [phone] Batool Celis MD Unavailable [phone] Reason for Visit * Reason Onset Date Comments Botox Injection 01/01/2025 ~03/02/2025 Encounter Details Date Type Department Care Team (Late st Contact Info) Description 01/01/2025 Patient Outreach [facility] [address] [place] [address] Samm Ledesma, HOME CARE ASSISTANT [address] [facility] [address] [place] [address] Botox Injection (~03/02/2025 ) Social History Tobacco [...] your doctor or pharmacy? Never 11/07/2023 [facility] Utilities Answer Date Recorded In [...] 07/07/2024 [facility] of Occupat ional [facility] - Occupational Stress Questionnaire Answer Date [...] in a halfway (including now)? No 11/07/2023 [facility] IP Transportation Answer D ate Recorded [...] No 12/06/2022 2:08 PM EDT DoniMacarena CCMSharonda * Because of a physical, mental or emotional condition, does this person have difficulty doing errands alone such as visiting a doctor's office or shopping? Answer Date of Assessment Author No 12/06/2022 2:08 PM EDT Shun Marioneriberto Aiken ZEINA documented as of this encounter [...] 01/01/2025 11:30 AM EDT ~03/02/2025 ANNIE APPROVED: [id number] AUTH #: ASO ASBM Preferred [id number] DATES OF APPROVAL: 08/12/2024-08/11/2025 UNITS APPROVED: 620 units/ 4 visits documented in this encounter Plan of Treatment Upcoming Encounters Date Type Department Care Team (Late st Contact Info) Description 03/02/2025 11:40 AM EDT Office Visit [facility] [address] [place] [address] [place] [address] [place] [address] 03/02/2025 12:45 PM EDT Procedure visit [facility] [address] [place] [address] Samm Ledesma, HOME CARE ASSISTANT [address] [facility] [address] [place] [address] 03/10/2025 12:30 PM EDT Appointment [facility] [place], [place] [id number] 03/10/2025 1:00 PM EDT Appointment [place] [address] Tacho Echavarria MD [address] [place] [id number] 04/29/2025 9:15 AM EDT Appointment [place] [address] Batool Celis MD [address] [place] [address] [place] [address] 05/19/2025 2:15 PM EST Office Visit [address] [address] Sin Tran MD [address] [place] [address] 08/12/2025 10:40 AM EST Appointment [facility] Women's Wellness [facility] [address] Matt lUrich MD [address] [place] [address] 254 [place] [address] documented as of this encounter Goals Goal [...] documented as of this encounter Care Teams Product Technician Relationship Specialty [place] [address] [place] [address] PCP - General 06/21/10 Arlyn Schmidt MD [address] [place] [address] Consulting Physician Internal Medicine-Endocrinology, Diabetes & Metabolism 11/28/20 Tacho Echavarria MD 1 [place] [address] Internal Medicine-Medical Oncology 11/12/23 Matt Ulrich MD 1 [place] [address] Surgery-Surgical Oncology 12/04/23 Eze Brock Pastoral Care 12/13/23 Annette Walker MSW Maintenance Truck Driver 05/13/24 Batool Celis MD [address] [place] [address] [place] [address] Radiation Oncologist Radiology-Radiation Oncology 06/08/24 documented as of this encounter
--- OUTSIDE RECORDS SUMMARY | 2025-02-12 11:06 | XMS_ITS | Encounter Summary ---
Author Organization [place] [address] Care Team Providers Care Safety Relief Valve Technician Name Role Phone Chetna Cedeno MD Primary Care Provider [phone] Arlyn Schmidt MD Unavailable [phone] Tacho Echavarria MD Unavailable [phone] Matt Ulrich MD Unavailable [phone] Eze Brock Unavailable Annette Walker SURVEY PROJECT MANAGER Unavailable [phone] Batool Celis MD Unavailable [phone] Encounter Details Date Type Department Care Team (Late st Contact Info) Description 12/30/2024 Social Work [facility] Cancer Care [facility] [place] [address] Sonny Fleming, SURVEY PROJECT MANAGER Social History Tobacco Use Types Packs/Day [...] your doctor or pharmacy? Never 11/07/2023 [facility] Utilities Answer Date Recorded In the past 12 months has th e electric, gas, oil, or water [employer] threatened to shut off services in your [...] Recorded PHQ-2 Total Score 5 07/07/2024 [facility] [place] of Occupat ional Health - Occupational Stress [...] any time in the past 12 m [facility], were you homeless or living in a alf (including now)? No 11/07/2023 [facility] IP Transportation [...] AM EDT Office Visit [facility] [address] [place] [address] [place] [address] [place] [address] 03/02/2025 12:45 PM EDT Procedure visit [facility] [address] [place] [address] Samm Ledesma, SENIOR TECHNICAL SUPPORT ENGINEER [address] [facility] [address] [place] [address] 03/10/2025 12:30 PM EDT Appointment [place] [address] 03/10/2025 1:00 PM EDT Appointment Cancer Care Medical Oncology [place], [place] 07[address]17 Tacho Echavarria MD [address] [place] [id number] 04/29/2025 9:15 AM EDT Appointment [place] [address] Batool Celis MD [address] [place] [address] CANCER CARE [place], [place] [id number] 05/19/2025 2:15 PM EST Office Visit [place] [address] [place] [address] Sin Tran MD [address] [place] [address] 08/12/2025 10:40 AM EST Appointment [facility] Women's Well[facility] [place] [address] Matt Ulrich MD [address] [place] [address] [place] [address] documented as of this encounter Goals [...] documented as of this encounter Care Teams Safety Relief Valve Technician Relationship Specialty [place] [address] [place] [address] PCP - General 06/21/10 Arlyn Schmidt MD [address] [place], [place] 30[address] Consulting Physician Internal Medicine-Endocrinology, Diabetes & Metabolism 11/28/20 Tacho Echavarria MD 1 [place], [place] 912[address]17 Internal Medicine-Medical Oncology 11/12/23 Matt Ulrich MD 1 [place], [place] 312[address]17 Surgery-Surgical Oncology 12/04/23 Eze Brock Pastoral Care 12/13/23 Annette Walker, SURVEY PROJECT MANAGER Test Fixture Designer 05/13/24 Batool Celis MD 1 [facility] [place] [address] Radiation Oncologist Radiology-Radiation Oncology 06/08/24 documented as of this encounter
--- OUTSIDE RECORDS SUMMARY | 2025-02-12 11:06 | XMS_ITS | Encounter Summary ---
Author Organization [place] [address] Care Team Providers Care Manager Of Environmental Services Name Role Phone Chetna Cedeno MD Primary Care Provider [phone] Arlyn Schmidt MD Unavailable [phone] Tacho Echavarria MD Unavailable [phone] Matt Ulrich MD Unavailable [phone] Eze Brock Unavailable Annette Walker Unavailable [phone] Batool Celis MD Unavailable [phone] Encounter Details Date Type Department Care Team (Late st Contact Info) Description 01/15/2025 Plan of Care Documentation [facility] Physical Therapy [address] [place] [address] Social History Tobacco Use Types [...] from your doctor or pharmacy? Never 11/07/2023 [facility] Utilities Answer Date Recorded In the [...] Date Recorded PHQ-2 Total Score 5 07/07/2024 [facility] of Occupat ional Health - Occupational [...] in a snf (including now)? No 11/07/2023 [facility] IP Transportation Answer [...] AM EDT Office Visit [facility] [place] [facility] [address] [place] [address] [place] [address] [place] [address] 03/02/2025 12:45 PM EDT Procedure visit [facility] [address] [place] [address] Samm Ledesma, CAR WHACKER [address] [facility] [address] [place] [address] 03/10/2025 12:30 PM EDT Appointment [facility] [place], [place] 08698[address] 03/10/2025 1:00 PM EDT Appointment Cancer Care Medical Oncology [place], [place] 9147417 Tacho Echavarria MD [address] [place] [address] [id number] 04/29/2025 9:15 AM EDT Appointment [facility] RAD ONC [place], [place] 83[address]17 Batool Celis MD [address] [place] [address] CANCER CARE [place], [place] [address] 05/19/2025 2:15 PM EST Office Visit [place] [address] [place] [address] Sin Tran MD [address] [place] [address] 08/12/2025 10:40 AM EST Appointment [facility] Women's Wellness [place] [facility] [place] [id number] Matt Ulrich MD [address] [place] [address] [place] [address] documented as of this encounter [...] as of this encounter Care Teams Manager Of Environmental Services Relationship Specialty [place] [address] [address] [facility] [place] [phone] PCP - General 06/21/10 Arlyn Schmidt MD [address] [place] [address] Consulting Physician Internal Medicine-Endocrinology, Diabetes & Metabolism 11/28/20 Tacho Echavarria MD 1 [place] [phone] Internal Medicine-Medical Oncology 11/12/23 Matt Ulrich MD 1 [place] 0450617 Surgery-Surgical Oncology 12/04/23 Eze Brock Pastoral Care 12/13/23 Annette Walker, ARACELI Composition Instructor 05/13/24 Batool Celis MD 1 [facility] [place] [address] Radiation Oncologist Radiology-Radiation Oncology 06/08/24 documented as of this encounter
--- OUTSIDE RECORDS SUMMARY | 2025-02-12 11:08 | XMS_ITS | Encounter Summary ---
Author [place] [address] Care Team Providers Care Public Health Worker Name Role Phone Chetna Cedeno MD Primary Care Provider [phone] Arlyn Schmidt MD Unavailable [phone] Tacho Echavarria MD Unavailable [phone] Matt Ulrich MD Unavailable [phone] Eze Brock Unavailable Annette Walker Unavailable [phone] Batool Celis MD Unavailable [phone] Encounter Details Date Type Department Care Team (Late st Contact Info) Description 01/11/2025 Orders Only Cancer Care Medical Oncology [place], [place] [id number] Tacho Echavarria MD [address] [place] [address] [id number] Social History Tobacco Use Types Packs/Day Years [...] Date Recorded PHQ-2 Total Score 5 07/07/2024 [facility] [place] of Occupat ional Health - Occupational Stress [...] time in the past [address] [facility], were you homeless or living in a fci (including now)? No 11/07/2023 [facility] IP Transportation Answer D ate Recorded [...] AM EDT Office Visit [facility] [address] [place] [address] [place] [address] [place] [address] 03/02/2025 12:45 PM EDT Procedure visit [facility] [address] [place] [address] Samm Ledesma, MORTGAGE COORDINATOR [address] [address] [place], [place] [id number] 03/10/2025 12:30 PM EDT Appointment [place] [address] 03/10/2025 1:00 PM EDT Appointment [facility] [place] [address] Tacho Echavarria MD [address] [place] [address] 04/29/2025 9:15 AM EDT Appointment [place] [address] Batool Celis MD [address] [place] [address] CANCER CARE [place], [place] [id number] 05/19/2025 2:15 PM EST Office Visit [address] [address] Sin Tran MD [address] [place] [address] 08/12/2025 10:40 AM EST Appointment [facility] Women's Wellness [facility] [place] [address] Matt Ulrich MD [address] [place] [address] [address] [place] [address] documented as of this encounter Goals [...] documented as of this encounter Care Teams Public Health Worker Relationship Specialty [place] [address] [place] [id number] PCP - General 06/21/10 Arlyn Schmidt MD [address] [place], [place] [id number] Consulting Physician Internal Medicine-Endocrinology, Diabetes & Metabolism 11/28/20 Tacho Echavarria MD 1 [place], [place] [phone] Internal Medicine-Medical Oncology 11/12/23 Matt Ulrich MD 1 [place], [place] [id number] Surgery-Surgical Oncology 12/04/23 Eze Brock Pastoral Care 12/13/23 Annette Walker, TECHNICAL PRODUCT MANAGER Soaking Room Operator 05/13/24 Batool Celis MD 1 [facility] [place] [address] Radiation Oncologist Radiology-Radiation Oncology 06/08/24 documented as of this encounter
--- OUTSIDE RECORDS SUMMARY | 2025-02-12 11:08 | XMS_ITS | Encounter Summary ---
Author Organization [place] [address] Care Team Providers Care Combat Systems Operator Mine Warfare Name Role Phone Chetna Cedeno MD Primary Care Provider [phone] Arlyn Schmidt MD Unavailable [phone] Tacho Echavarria MD Unavailable [phone] Matt Ulrich MD Unavailable [phone] Eze Brock Unavailable Annette Walker Unavailable [phone] Batool Celis MD Unavailable [phone] Encounter Details Date Type Department Care Team (Late st Contact Info) Description 12/25/2024 Telephone [facility] [place] [address] Jasmin Porter RN Social History [...] Recorded PHQ-2 Total Score 5 07/07/2024 [facility] of Occupat ional [facility] - Occupational Stress Questionnaire Answer Date [...] [facility] IP Transportation Answer D ate [...] AM EDT Office Visit [facility] [address] [place] [address] [place] [address] [place] [address] 03/02/2025 12:45 PM EDT Procedure visit [facility] [address] [facility] [address] [place] [address] Samm Ledesma, THERMAL SPRAY OPERATOR [address] [place], [place] [id number] 03/10/2025 12:30 PM EDT Appointment [facility] [place] [address] 03/10/2025 1:00 PM EDT Appointment [facility] Medical Oncology [place], [place] [phone] Tacho Echavarria MD [address] [place] [id number] 04/29/2025 9:15 AM EDT Appointment [facility] [place] [address] Batool Celis MD [address] [place] [address] CANCER CARE [place], [place] [id number] 05/19/2025 2:15 PM EST Office Visit [address] [place] [address] Sin Tran MD [address] [place] [address] [address] 08/12/2025 10:40 AM EST Appointment [facility] Women's Wellness [place] One [facility] [place] [address] Matt Ulrich MD [address] MUSA H[facility] [place] [address] documented as of this encounter Goals Goal Patient Goal Type Associated Problems Recent Progress Patient-Stated? Author Blood Pressure < 140/90 Blood Pressure 121/77(02/04 2:04 PM EDT) No Chetna Cedeno MD Breast [facility] Breast Health On track(2024 11:27 AM EDT) No Jasmin Porter, RN Note: Patient acknowledges understanding of new diagnosis, plan of care, available resources and how to contact Nurse Navigator with any future questions or concerns. Breast [facility] Breast Health Not on track(2024 11:27 AM EDT) No Jasmin Porter, RAUL Note: Patient will be compliant with monthly SBE and is aware of who to contact for any unusual or concerning findings. Breast [facility] Breast Health On track(2024 11:27 AM [...] documented as of this encounter Care Teams Combat Systems Operator Mine Warfare Relationship Specialty [place] [address] [place] [address] PCP - General 06/21/10 Arlyn Schmidt MD [address] [place] [address] Consulting Physician Internal Medicine-Endocrinology, Diabetes & Metabolism 11/28/20 Tacho Echavarria MD 1 [place] [address] Internal Medicine-Medical Oncology 11/12/23 Matt Ulrich MD 1 [place] [address] Surgery-Surgical Oncology 12/04/23 Eze Brock Pastoral Care 12/13/23 Annette Walker, [facility] Cocktail Lounge Manager 05/13/24 Batool Celis MD 1 [facility] [place] [address] Radiation Oncologist Radiology-Radiation Oncology 06/08/24 documented as of this encounter
--- OUTSIDE RECORDS SUMMARY | 2025-02-12 11:08 | XMS_ITS | Encounter Summary ---
Author Organization [place] [address] Care Team Providers Care Heel Seater Name Role Phone Chetna Cedeno MD Primary Care Provider [phone] Arlyn Schmidt MD Unavailable [phone] Tacho Echavarria MD Unavailable [phone] Matt Ulrich MD Unavailable [phone] Eze Brock Unavailable Annette Walker Unavailable [phone] Batool Celis MD Unavailable [phone] Encounter Details Date Type Department Care Team (Late st Contact Info) Description 12/28/2024 Orders Only Cancer Care Medical Oncology [place], [place] [phone] Tacho Echavarria MD [address] [place] [address] [phone] 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) [...] doctor or pharmacy? Never 11/07/2023 [facility] Utilities Answer Date Recorded In the past [...] often do you attend chur ch or confucianism services? 1 to 4 times per year [...] Date Recorded PHQ-2 Total Score 5 07/07/2024 [facility] [place] of Occupat ional Health - Occupational Stress [...] in a halfway (including now)? No 11/07/2023 [facility] IP Transportation Answer D ate Recorded In [...] AM EDT Office Visit [facility] [address] [place] [address] [place] [address] [place] [address] 03/02/2025 12:45 PM EDT Procedure visit [facility] [address] [place] [address] [id number] Samm Ledesma, STRINGED INSTRUMENT REPAIRER [address] [facility] [place] [address] 03/10/2025 12:30 PM EDT Appointment [facility] [place], [place] [phone] 03/10/2025 1:00 PM EDT Appointment [facility] [place] [address] Tacho Echavarria MD [address] [place] [address] [phone] 04/29/2025 9:15 AM EDT Appointment [place] [address] Batool Celis MD [address] [place] [address] [place] [address] 05/19/2025 2:15 PM EST Office Visit [address] [place] [address] Sin Tran MD [facility] [place] [address] 08/12/2025 10:40 AM EST Appointment [facility] Women's [facility] [place] [address] [facility] [place] [address] Matt Ulrich MD [address] [place] [address] [address] [place] [address] documented as of this encounter Goals Goal Patient Goal Type Associated Problems Recent Progress Patient-Stated? Author Blood Pressure < 140/90 Blood Pressure 121/77(02/04 2:04 PM EDT) No Chetna Cedeno MD Breast [facility] Breast Health On track(2024 11:27 AM EDT) No Jasmin Porter, RAUL Note: Patient acknowledges understanding of new diagnosis, plan of care, available resources and how to contact Nurse Navigator with any future questions or concerns. Breast [facility] Breast Health Not on track(2024 11:27 [...] CHEMISTRY ORDERABLES Final Result Performing Organization Address City/[facility]/ZIP Co de Phone Number PREFERRED LAB [employer] [facility] 1 [facility] , [place] [address] * VITAMIN B12/ FOLIC ACID (01/06/2025 1:13 PM EDT) Vitamin B12 305 232 - 1,245 pg/mL 01/06/2025 2:55 PM EDT PREFERRED [employer] [facility] Folate 15.80 >=4.80 ng/mL 01/06/2025 2:55 PM EDT [facility] [employer] Blood VENOUS STRUCTURE / Unknown Port / Unknown 01/06/2025 1:13 PM EDT 01/06/2025 1:17 PM EDT Narrative PREFERRED [employer] - 01/06/2025 2:55 PM EDT Ingestion of haroon doses of biotin (>5 mg/day) taken within 8 hours of drawing blood sample can interfere with this immunoassay test. Tacho Echavarria MD CHEMISTRY ORDERABLES Final Result Performing Organization Address City/[facility] Co de Phone Number [facility] [employer] [facility] [address] [facility] [place] [address] * (ABNORMAL) COMPREHENSIVE METABOLIC PANEL (01/06/2025 1:13 PM EDT) Sodium 140 136 - 145 mmol/L 01/06/2025 1:37 PM EDT [facility] Potassium 3.8 3.5 - 5.0 mmol/L 01/06/2025 1:37 PM EDT [facility] Chloride 108(H) 98 - 107 mmol/L 01/06/2025 1:37 PM EDT [facility] Total CO2 22 22 - 29 mmol/L 01/06/2025 1:37 PM EDT [facility] Anion Gap 10 7 - 16 mmol/L 01/06/2025 1:37 PM EDT [facility] Calcium 9.2 8.6 - 10.4 mg/dL 01/06/2025 1:37 PM EDT [facility] Glucose Lvl 121(H) 70 - 99 mg/dL 01/06/2025 1:37 PM EDT [facility] BUN 16 6 - 20 mg/dL 01/06/2025 1:37 PM EDT [facility] Creatinine 0.83 0.51 - 1.30 mg/dL 01/06/2025 1:37 PM EDT [facility] Albumin 4.0 3.5 - 5.2 gm/dL 01/06/2025 1:37 PM EDT [facility] Total Protein 6.6 6.4 - 8.3 gm/dL 01/06/2025 1:37 PM EDT [facility] Bili Total 0.4 0.2 - 1.3 mg/dL 01/06/2025 1:37 PM EDT [facility] ALT 9 <=41 U/L 01/06/2025 1:37 PM EDT [facility] AST 14 <=40 U/L 01/06/2025 1:37 PM EDT [facility] Alk Phos 127(H) 36 - 123 U/L 01/06/2025 1:37 PM EDT [facility] eGFR (CKD-EPIcr 2020) 82 >=60 mL/min/1.7 3 m2 01/06/2025 1:37 PM EDT [facility] Comment:Estimated GFR was ca lculated using the CKD-EPIcr (2020) equation refit without race. The equation is recommended by the National Kidney Foundation - [place] Society of Nephrology Task Force. Blood VENOUS STRUCTURE / Unknown Port / Unknown 01/06/2025 1:13 PM EDT 01/06/2025 1:17 PM EDT Tacho Echavarria MD CHEMISTRY ORDERABLES Final Result [facility] 1 [place] [address] * (ABNORMAL) CBC WITH DIFF (01/06/2025 1:13 PM EDT) [facility] WBC 5.1 3.7 - 10.3 x10(3)/mc L 01/06/2025 1:22 PM EDT [facility] RBC 3.61(L) 3.90 - 5.20 x10(6)/mc L 01/06/2025 1:22 PM EDT [facility] Hgb 11.0(L) 11.2 - 15.7 g/dL 01/06/2025 1:22 PM EDT [facility] Hct 33.2(L) 34.0 - 45.0 % 01/06/2025 1:22 PM EDT [facility] MCV 92.0 80.0 - 100.0 fL 01/06/2025 1:22 PM EDT [facility] MCH 30.5 26.0 - 34.0 pg 01/06/2025 1:22 PM EDT [facility] MCHC 33.1 30.7 - 35.5 g/dL 01/06/2025 1:22 PM EDT [facility] RDW 14.5 <=14.9 % 01/06/2025 1:22 PM EDT [facility] Platelet 170 155 - 369 x10(3)/mc L 01/06/2025 1:22 PM EDT [facility] MPV 8.8 8.8 - 12.5 fL 01/06/2025 1:22 PM EDT [facility] Neut # Prelim 3.3 1.6 - 6.1 x10(3)/mc L 01/06/2025 1:22 PM EDT [facility] Comment:Preliminary automate d absolute neutrophil count. Value may change if manual differential is indicated. Neut Percent 65.2 % 01/06/2025 1:22 PM EDT [facility] Comment:Neutrophils equals s egs plus bands Imm Gran% 0.2 % 01/06/2025 1:22 PM EDT [facility] Comment:Automated count of m etamyelocytes, myelocytes and promyelocytes. Lymph Percent 28.1 % 01/06/2025 1:22 PM EDT [facility] [place] Percent 4.3 % 01/06/2025 1:22 PM EDT [facility] Eos Percent 1.8 % 01/06/2025 1:22 PM EDT [facility] Baso Percent 0.4 % 01/06/2025 1:22 PM EDT [facility] Neut # 3.3 1.6 - 6.1 x10(3)/mc L 01/06/2025 1:22 PM EDT [facility] Comment:Neutrophils equals s egs plus bands IMMGRAN# 0.0 0.0 - 0.1 x10(3)/mc L 01/06/2025 1:22 PM EDT [facility] Comment:Automated count of m etamyelocytes, myelocytes and promyelocytes. An absolute IG <0.1 is reported as 0.0. Lymph # 1.4 1.2 - 3.9 x10(3)/mc L 01/06/2025 1:22 PM EDT [facility] [place] # 0.2(L) 0.3 - 0.9 x10(3)/mc L 01/06/2025 1:22 PM EDT [facility] Eos# 0.1 0.0 - 0.5 x10(3)/mc L 01/06/2025 1:22 PM EDT [facility] Baso # 0.0 0.0 - 0.1 x10(3)/mc L 01/06/2025 1:22 PM EDT [facility] Blood VENOUS STRUCTURE / Unknown Port / Unknown 01/06/2025 1:13 PM EDT 01/06/2025 1:17 PM EDT Tacho Echavarria MD HEMATOLOGY ORDERABLES Final Result [facility] 1 [place] [address] documented in this encounter Visit Diagnoses Diagnosis 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)- Primary documented in this encounter Additional Health Concerns Assessment Noted Time PHQ-9 Depression Total Score: 17 07/07/2 024 8:39 AM EST PHQ-2 Depression Total Score: 5 07/07/20 8:39 AM EST documented as of this encounter Care Teams Heel Seater Relationship Specialty [place] [address] [place] [address] PCP - General 06/21/10 Arlyn Schmidt MD [address] [place] [address] Consulting Physician Internal Medicine-Endocrinology, Diabetes & Metabolism 11/28/20 Tacho Echavarria MD 1 [place] [address] Internal Medicine-Medical Oncology 11/12/23 Matt Ulrich MD 1 [place] [id number] Surgery-Surgical Oncology 12/04/23 Eze Brock Pastoral Care 12/13/23 Annette Walker, ARACELI Housing Inspector 05/13/24 Batool Celis MD 1 [facility] [place] [address] Radiation Oncologist Radiology-Radiation Oncology 06/08/24 documented as of this encounter
--- OUTSIDE RECORDS SUMMARY | 2025-02-12 11:08 | XMS_ITS | Encounter Summary ---
Author [place] [address] Care Team Providers Care Fagoter Name Role Phone Chetna Cedeno MD Primary Care Provider [phone] Arlyn Schmidt MD Unavailable [phone] Tacho Echavarria MD Unavailable [phone] Matt Ulrich MD Unavailable [phone] Eze Brock Unavailable Annette Walker Unavailable Batool Celis MD Unavailable [phone] Reason for Visit * Reason Comments Pharmacy Oncology Management Pharmacy Reassessment abemaciclib (Verze nio) Encounter Details Date Type Department Care Team (Latest Contact Info) Description 12/25/2024 Specialty Pharmacy [facility] [address] [place] [address] Hilary Rivas, [facility] [...] from your doctor or pharmacy? Never 11/07/2023 [facility] Utilities Answer Date Recorded In the [...] any clubs o r organizations such as mormon groups, unions, fraternal or athletic groups, or [...] Total Score 5 07/07/2024 [facility] Occupat ional Health - Occupational [...] in a mcc (including now)? 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 [...] into the lungs daily. fluticasone propionate 1 Greenup by Nasal route daily. Aerochamber MV 1 Each by [facility].(Non-Drug; Combo Route) route as needed. lidocaine-prilocaine Apply [...] Roland RPH - 12/25/2024 10:18 AM EDT [facility] Per secure chat with provider. Will hold off on dose escalation at this time. Plan to re-evaluate in 1 month. documented in this encounter Plan of Treatment Upcoming Encounters Date Type Department Care Team (Late st Contact Info) Description 03/02/2025 11:40 AM EDT Office Visit [facility] [place] [facility] [address] [place] [address] [place] [address] [place] [address] 03/02/2025 12:45 PM EDT Procedure visit [facility] [address] [place] [address] Samm Ledesma, CARDBOARD CUTTER [address] [place] [address] 03/10/2025 12:30 PM EDT Appointment [facility] [place] [id number] 03/10/2025 1:00 PM EDT Appointment [facility] Medical Oncology [place], [place] [id number] Tacho Echavarria MD [address] [place] [address] 04/29/2025 9:15 AM EDT Appointment [facility] RAD ONC [place], [place] [id number] Batool Celis MD [address] [place] [address] [place] [address] 05/19/2025 2:15 PM EST Office Visit [facility] [address] [facility] [address] [place] [address] Sin Tran MD [facility] [place] [address] 08/12/2025 10:40 AM EST Appointment [facility] Women's Wellness [facility] [place] [address] Matt Ulrich MD [address] [place] [address] [address] [place] [address] documented as of this encounter [...] documented as of this encounter Care Teams Fagoter Relationship Specialty [place] [address] [place] [address] PCP - General 06/21/10 Arlyn Schmidt MD [address] [place] [address] Consulting Physician Internal Medicine-Endocrinology, Diabetes & Metabolism 11/28/20 Tacho Echavarria MD 1 [place] [address] Internal Medicine-Medical Oncology 11/12/23 Matt Ulrich MD 1 [place] [address] Surgery-Surgical Oncology 12/04/23 Eze Brock Pastoral Care 12/13/23 Annette Walker, AUDIT INTERN Continuous Still Operator 05/13/24 Batool Celis MD 1 [facility] [address] Radiation Oncologist Radiology-Radiation Oncology 06/08/24 documented as of this encounter
--- OUTSIDE RECORDS SUMMARY | 2025-02-12 11:08 | XMS_ITS | Encounter Summary ---
Author [place] [address] Care Team Providers Care Head Operator Name Role Phone Chetna Cedeno MD Primary Care Provider [phone] Arlyn Schmidt MD Unavailable [phone] Tacho Echavarria MD Unavailable [phone] Matt Ulrich MD Unavailable [phone] Eze Brock Unavailable Annette Walker Unavailable [phone] Batool Celis MD Unavailable [phone] Reason for Visit * Reason Comments Pharmacy Oncology Management Abemaciclib Encounter Details Date Type Department Care Team (Latest Contact Info) Description 01/07/2025 Specialty Pharmacy [facility] [address] [place] [address] Anisa Lozoya CPhT Pharmacy Oncology [...] doctor or pharmacy? Never 11/07/2023 [facility] Utilities Answer Date Recorded In the past 12 months has th e electric, gas, oil, or water AIM threatened to shut off services in your [...] any clubs o r organizations such as gnosticist groups, unions, fraternal or athletic groups, or [...] Date Recorded PHQ-2 Total Score 5 07/07/2024 [facility] of Occupat ional Health - Occupational Stress [...] in a custodial (including now)? No 11/07/2023 [facility] IP Transportation Answer [...] Rodriguez RPH - 01/07/2025 10:56 AM EDT [facility] - Care Plan and Refill Review Refill questions and refill history verified. Last assessment 12/25/24. No reassessment needed at this time. Chetna Rodriguez Kianna Specialty Pharmacist documented in this encounter Plan of Treatment Upcoming Encounters Date Type Department Care Team (Late st Contact Info) Description 03/02/2025 11:40 AM EDT Office Visit [facility] [address] [place] [address] [place] [address] [place] [address] 03/02/2025 12:45 PM EDT Procedure visit [facility] [address] [place] [address] Samm Ledesma APRN [address] [facility] [address] [place] [address] 03/10/2025 12:30 PM EDT Appointment [place] [address] 03/10/2025 1:00 PM EDT [facility]ointment [facility] [place] [address] Tacho Echavarria MD [address] [place] [address] 04/29/2025 9:15 AM EDT Appointment [place] [address] Batool Celis MD [address] [place] [address] [place] [address] 05/19/2025 2:15 PM EST Office Visit [address] [address] Sin Tran MD [address] [place] [address] 08/12/2025 10:40 AM EST Appointment [facility] Women's Wellness [place] [address] Matt Ulrich MD [address] [place] [address] 254 [place] [address] documented as of this encounter Goals Goal [...] as of this encounter Care Teams Head Operator Relationship Specialty [place] [address] [place] [address] PCP - General 06/21/10 Arlyn Schmidt MD [facility][note 3] Kevin [address] [place], [place] [id number] Consulting Physician Internal Medicine-Endocrinology, Diabetes & Metabolism 11/28/20 Tacho Echavarria MD [address] [place] [address] Internal Medicine-Medical Oncology 11/12/23 Matt Ulrich MD [address] [place] [address] Surgery-Surgical Oncology 12/04/23 Eze Brock Pastoral Care 12/13/23 Annette Walker MSW Knot Cutter 05/13/24 Batool Celis MD [address] [place] [address] [place] [address] Radiation Oncologist Radiology-Radiation Oncology 06/08/24 documented as of this encounter
--- OUTSIDE RECORDS SUMMARY | 2025-02-12 11:08 | XMS_ITS | Encounter Summary ---
Author Organization [place] [address] Care Team Providers Care Seed Specialist Name Role Phone Chetna Cedeno MD Primary Care Provider [phone] Arlyn Schmidt MD Unavailable [phone] Tacho Echavarria MD Unavailable [phone] Matt Ulrich MD Unavailable [phone] Eze Brock Unavailable Annette Walker Unavailable [phone] Batool Celis MD Unavailable [phone] Reason for Visit * Reason Comments Pharmacy Migraine Medication Management Qulipta pa renewal Encounter Details Date Type Department Care Team (Latest Contact Info) Description 12/23/2024 Specialty Pharmacy [facility] [address] [place] [address] Anisa Lozoya CPhT Pharmacy Migraine [...] Date Recorded PHQ-2 Total Score 5 07/07/2024 [facility] of Occupat ional Health - Occupational Stress [...] in a usp (including now)? No 11/07/2023 [facility] IP Transportation Answer D ate Recorded [...] Lozoya CPhT - 12/23/2024 3:52 PM EDT [facility] Prior Authorization PA for Qulipta on 12/30/24. Last CR: 12/08/24 Last OV: 09/15/24. Will submit PA. [facility] Prior Authorization Submitted PA for Qulipta to [employer] insurance via covermymeds ([employer] [id number]). Will follow up on 12/25. * Leslie Bentley CPhT - 12/23/2024 3:52 PM EDT [facility] Prior Authorization Determination Received notice of PA approval for Qulipta.. PA approved from 12/23/24 to 12/23/25. Refill coordination scheduled for 12/31/24. documented in this encounter Plan of Treatment Upcoming Encounters Date Type Department Care Team (Late st Contact Info) Description 03/02/2025 11:40 AM EDT Office Visit [facility] [address] [place] [address] [place] [address] [place] [address] 03/02/2025 12:45 PM EDT Procedure visit [facility] [address] [place] [address] Samm Ledesma, BANK GUARD [address] [facility] [address] [place] [address] 03/10/2025 12:30 PM EDT Appointment [place] [address] 03/10/2025 1:00 PM EDT Appointment [facility] [place] [address] Tacho Echavarria MD [address] [place] [address] [phone] 04/29/2025 9:15 AM EDT Appointment [place] [address] Batool Celis MD [address] [place] [address] 05/19/2025 2:15 PM EST Office Visit [address] [address] Sin Tran MD [address] [place] [address] 08/12/2025 10:40 AM EST Appointment [facility] Women's Wellness [facility] [place] [address] Matt Ulrich MD [address] [place] [address] 254 [place] [address] documented as of this encounter Goals Goal [...] documented as of this encounter Care Teams Seed Specialist Relationship Specialty [place] [address] [place] [address] PCP - General 06/21/10 Arlyn Schmidt MD [address] [place] [address] Consulting Physician Internal Medicine-Endocrinology, Diabetes & Metabolism 11/28/20 Tacho Echavarria MD 1 [place] [address] Internal Medicine-Medical Oncology 11/12/23 Matt Ulrich MD 1 [place] [address] Surgery-Surgical Oncology 12/04/23 Eze Brock Pastoral Care 12/13/23 Annette Walker MSW Die Engraving Supervisor 05/13/24 Batool Celis MD [address] [place] [address] [place] [address] Radiation Oncologist Radiology-Radiation Oncology 06/08/24 documented as of this encounter
--- OUTSIDE RECORDS SUMMARY | 2025-02-12 11:10 | XMS_ITS | Encounter Summary ---
Author Organization [place] [address] Care Team Providers Care Carding Machine Feeder Name Role Phone Chetna Cedeno MD Primary Care Provider [phone] Arlyn Schmidt MD Unavailable [phone] Tacho Echavarria MD Unavailable [phone] Matt Ulrich MD Unavailable [phone] Eze Brock Unavailable Annette Walker Unavailable [phone] Batool Celis MD Unavailable [phone] Encounter Details Date Type Department Care Team (Late st Contact Info) Description 12/29/2024 Telephone [facility] Oncology [place], [place] [phone] Tacho Echavarria MD [address] [place] [address] [phone] Social History Tobacco Use Types Packs/Day Years [...] from your doctor or pharmacy? Never 11/07/2023 [facility] Utilities Answer Date Recorded In the [...] any clubs o r organizations such as evangelical groups, unions, fraternal or athletic groups, or [...] Date Recorded PHQ-2 Total Score 5 07/07/2024 [facility] [place] of Occupat ional Health - Occupational Stress [...] in the past 12 m [facility], were you homeless or living in a fci (including now)? No 11/07/2023 [facility] [address] IP Transportation Answer D ate Recorded In [...] AM EDT Office Visit [facility] [address] [place] [address] [place] [address] [place] [address] 03/02/2025 12:45 PM EDT Procedure visit [facility] [address] [facility] [address] [place] [address] Samm Ledesma, LUMBER SALVAGER [address] [facility] [facility] [facility] [address] [place], [place] [id number] 03/10/2025 12:30 PM EDT Appointment [facility] [place], [place] [phone] 03/10/2025 1:00 PM EDT Appointment [facility] Medical Oncology [place], [place] [address] Tacho Echavarria MD [address] [place] [id number] 04/29/2025 9:15 AM EDT Appointment [facility] [place] [address] Batool Celis MD [address] [place] [address] CANCER CARE [place], [place] [phone] 05/19/2025 2:15 PM EST Office Visit [address] [address] Sin Tran MD [address] [place] [address] 08/12/2025 10:40 AM EST Appointment [facility] Women's Wellness [facility] [place] [address] Matt Ulrich MD [address] [place] [address] MUSA Zari [facility] [place] [address] documented as of this encounter Goals Goal Patient Goal Type Associated Problems Recent Progress Patient-Stated? Author Blood Pressure < 140/90 Blood Pressure 121/77(02/04 2:04 PM EDT) No Chetna Cedeno MD [facility] On track(2024 11:27 AM EDT) No Jasmin Porter, RN Note: Patient acknowledges understanding of new diagnosis, plan of care, available resources and how to contact Nurse Navigator with any future questions or concerns. [facility] Not on track(2024 11:27 AM EDT) No [...] MISC COMMENT Tiago 01/07/2025 7:35 AM EDT [facility] Blood VENOUS STRUCTURE / Unknown Port / Unknown 01/06/2025 1:13 PM EDT 01/07/2025 7:31 AM EDT Tacho Echavarria MD HEMATOLOGY ORDERABLES Final Result [facility] [address] [place], [place] [phone] documented in this encounter Visit Diagnoses Diagnosis [...] documented as of this encounter Care Teams Carding Machine Feeder Relationship Specialty [place] [address] [place] [address] PCP - General 06/21/10 Arlyn Schmidt MD [address] [place] [address] Consulting Physician Internal Medicine-Endocrinology, Diabetes & Metabolism 11/28/20 Tacho Echavarria MD 1 [place] [address] Internal Medicine-Medical Oncology 11/12/23 Matt Ulrich MD 1 [place] [address] Surgery-Surgical Oncology 12/04/23 Eze Brock Pastoral Care 12/13/23 Annette Walker MSW Excavating Machine Operator 05/13/24 Batool Celis MD 1 [facility] [place] [address] Radiation Oncologist Radiology-Radiation Oncology 06/08/24 documented as of this encounter
--- OUTSIDE RECORDS SUMMARY | 2025-02-12 11:10 | XMS_ITS | Encounter Summary ---
Author Organization [place] [address] Care Team Providers Care Colon And Rectal Surgeon Name Role Phone Chetna Cedeno MD Primary Care Provider [phone] Arlyn Schmidt MD Unavailable [phone] Tacho Echavarria MD Unavailable [phone] Matt Ulrich MD Unavailable [phone] Eze Brock Unavailable Annette Walker Unavailable [phone] Batool Celis MD Unavailable [phone] Reason for Visit * Reason Onset Date Comments Medication Refill 12/29/2024 Encounter Details Date Type Department Care Team (Late st Contact Info) Description 12/29/2024 Refill [facility]ERRITT [address] [place] [address] [place] [address] [place] [address] Medication Refill Social History Tobacco [...] [facility] - Occupational Stress Questionnaire Answer Date [...] a long term (including now)? No 11/07/2023 [facility] IP Transportation Answer [...] 03/02/2025 11:40 AM EDT Office Visit [facility] [place] [address] [place] [address] [place] [address] [place] [address] 03/02/2025 12:45 PM EDT Procedure visit [facility] [address] [facility] [address] [place] [address] Samm Ledesma APRN [address] [facility] [address] [place] [address] 03/10/2025 12:30 PM EDT Appointment [facility] [place], [place] [phone] 03/10/2025 1:00 PM EDT Appointment [facility] [place] [address] Tacho Echavarria MD [address] [place] [address] 04/29/2025 9:15 AM EDT Appointment [place] [address] Batool Celis MD [address] [place] [address] [place] [address] 05/19/2025 2:15 PM EST Office Visit [address] [address] Sin Tran MD [address] [place] [address] 08/12/2025 10:40 AM EST Appointment [facility] Women's Wellness [facility] [place] [address] Matt Ulrich MD [address] [place] [address] 254 [place] [address] documented as of this encounter Goals Goal [...] documented as of this encounter Care Teams Colon And Rectal Surgeon Relationship Specialty Start [place] [address] [place] [address] PCP - General 06/21/10 Arlyn Schmidt MD [address] [place] [id number] Consulting Physician Internal Medicine-Endocrinology, Diabetes & Metabolism 11/28/20 Tacho Echavarria MD 1 [place] [address] Internal Medicine-Medical Oncology 11/12/23 Matt Ulrich MD 1 [place] [address] Surgery-Surgical Oncology 12/04/23 Eze Brock Pastoral Care 12/13/23 Annette Walker MSW Revenue Enforcement Collection Agent 05/13/24 Batool Celis MD [address] [place] [address] [place] [address] Radiation Oncologist Radiology-Radiation Oncology 06/08/24 documented as of this encounter
--- OUTSIDE RECORDS SUMMARY | 2025-02-12 11:10 | XMS_ITS | Encounter Summary ---
Author [place] [address] Care Team Providers Care Pipe Organ Tuner And Repairer Name Role Phone Chetna Cedeno MD Primary Care Provider [phone] Arlyn Schmidt MD Unavailable [phone] Tacho Echavarria MD Unavailable [phone] Matt Ulrich MD Unavailable [phone] Eze Brock Unavailable Annette Walker Unavailable [phone] Batool Celis MD Unavailable [phone] Reason for Visit * Reason Onset Date Comments Medication Refill 02/08/2025 Encounter Details Date Type Department Care Team (Late st Contact Info) Description 02/08/2025 Refill [facility] Medical Oncology [place], [place] 1035[address] Tacho Echavarria MD [address] [place] [address] [id number] Medication Refill Social History Tobacco Use Types [...] your doctor or pharmacy? Never 11/07/2023 [facility] Utilities Answer Date Recorded In the [...] in a fdc (including now)? No 11/07/2023 [facility] IP Transportation Answer D [...] Refills Last Filled Start Date End Date exemestane (AROMASIN) 25 mg Oral TabletIndications:I nvasive ductal carcinoma of breast, female, right (HCC),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),Right breast cancer with T3 tumor, >5 cm in greatest dimension (HCC) Take 1 Tablet by mouth daily. 90 Tablet 02/08/2025 documented in this encounter Miscellaneous Notes * Telephone Encounter - Rima Bynum RN - 02/08/2025 2:43 PM EDT Received refill request for Exemestane for pt. Reviewed chart; pt has f/u appt on 03/10/25. Last RX was sent on 10/12/24 with 0 refills, so refill is appropriate. Last office note on 02/04/25 states: Recommended to continue AI + Verzenio 100 mg po bid. If has radiologic or tumor marker progresion, the analysis for ESR1 mutation would be indicated. Escript for Exemestane sent to pt's pharmacy. documented in this encounter Plan of Treatment Upcoming Encounters Date Type Department Care Team (Late st Contact Info) Description 03/02/2025 11:40 AM EDT Office Visit [facility]O [facility]ERRITT [address] [place] [address] [place] [address] [place] [address] 03/02/2025 12:45 PM EDT Procedure visit [facility] NEUROLOG[facility]ECTOR [address] [facility] [address] [place] [address] Samm Ledesma, LEYLA [address] [facility] [address] [place] [address] 03/10/2025 12:30 PM EDT Appointment [place] [address] 03/10/2025 1:00 PM EDT Appointment [facility] [place] [address] Tacho Echavarria MD [address] [place] [address] [phone] 04/29/2025 9:15 AM EDT Appointment [place] [address] Batool Celis MD [address] [place] [address] [place] [address] 05/19/2025 2:15 PM EST Office Visit [address] [facility] [address] [place] [address] Sin Tran MD [address] [place] [address] 08/12/2025 10:40 AM EST Appointment [facility] Women's Wellness [facility] [place] [address] Matt Ulrich MD [address] [place] [address] 254 [place] [address] documented as of this encounter Goals Goal [...] with any future questions or concerns. Breast [facility] Breast Health Not on track(2024 [...] 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) Right breast cancer with T3 tumor, >5 cm in greatest dimension (HCC) documented in this encounter Discontinued Medications Medication Sig Discontinue Reason Start Date End Da te exemestane (AROMASIN) 25 mg Oral Tablet Take 25 mg by mouth daily. Reorder 10/12/2024 02/08/2025 documented as of this encounter Additional Health Concerns Assessment Noted Time PHQ-9 Depression Total Score: 17 024 8:39 AM EST PHQ-2 Depression Total Score: 5 07/07/20 24 8:39 AM EST documented as of this encounter Care Teams Pipe Organ Tuner And Repairer Relationship Specialty [place] [address] [place] [address] PCP - General 06/21/10 Arlyn Schmidt MD [address] [place] [address] Consulting Physician Internal Medicine-Endocrinology, Diabetes & Metabolism 11/28/20 Tacho Echavarria MD 1 [place] [id number] Internal Medicine-Medical Oncology 11/12/23 Matt Ulrich MD 1 [place] [address]459[address] Surgery-Surgical Oncology 12/04/23 Eze Brock Pastoral Care 12/13/23 Annette Walker, PAPER HANGER Turkey Roll Maker 05/13/24 Batool Celis MD 1 [place] [address] Radiation Oncologist Radiology-Radiation Oncology 06/08/24 documented as of this encounter
--- OUTSIDE RECORDS SUMMARY | 2025-02-12 11:10 | XMS_ITS | Encounter Summary ---
Author Organization [place] [address] Care Team Providers Care Ball Racker Name Role Phone Chetna Cedeno MD Primary Care Provider [phone] Arlyn Schmidt MD Unavailable [phone] Tacho Echavarria MD Unavailable [phone] Matt Ulrich MD Unavailable [phone] Eze Brock Unavailable Annette Walker Unavailable [phone] Batool Celis MD Unavailable [phone] Reason for Visit * Reason Comments Pharmacy Migraine Medication Management Qulipta Encounter Details Date Type Department Care Team (Latest Contact Info) Description 01/28/2025 Specialty Pharmacy [facility] [address] [place] [address] Sheridan Arellano CPhT Pharmacy Migraine [...] doctor or pharmacy? Never 11/07/2023 [facility] Utilities Answer Date Recorded In the past 12 months has th e electric, gas, oil, or water [place] threatened to shut off services in your [...] often do you attend chur ch or episcopalian services? 1 to 4 times per year [...] Date Recorded PHQ-2 Total Score 5 07/07/2024 [facility] [place] of Occupat ional Health - Occupational Stress [...] any time in the past 12 m [facility], were you homeless or living in a detention (including now)? No 11/07/2023 [facility] IP Transportation Answer D ate [...] MarvMacarena hernández CCMSharonda documented in this encounter Progress Notes * Sheridan Arellano CPhT - 01/28/2025 10:43 AM EDT Specialty Pharmacy Refill Coordination Note Contacted [facility] today regarding refills of Qulipta. Copay amount: $0 Sent Therasis message. Patient informed of copay. * Aaliyah Decker CPhT - 01/28/2025 10:43 AM EDT Specialty Pharmacy Refill Coordination Note Contacted [facility] today regarding refills of Qulipta. Medication to be picked up on 02/04. Copay amount: $0 Spoke with patient. Patient informed of copay. documented in this encounter Plan of Treatment Upcoming Encounters Date Type Department Care Team (Late st Contact Info) Description 03/02/2025 11:40 AM EDT Office Visit [facility] [address] [place] [address] [place] [address] [place] [address] 03/02/2025 12:45 PM EDT Procedure visit [facility] NEUROLOGY HECTOR [address] [facility] [address] [place] [address] Samm Ledesma APRN [address] [facility] [address] [place] [address] 03/10/2025 12:30 PM EDT Appointment [place] [address] 03/10/2025 1:00 PM EDT Appointment [facility] [place] [address] Tacho Echavarria MD [address] [place] [address] 04/29/2025 9:15 AM EDT Appointment [facility] [place] [address] Batool Celis MD [address] [place] [address] [place] [address] 05/19/2025 2:15 PM EST Office Visit [address] [address] Sin Tran MD [address] [place] [address] 08/12/2025 10:40 AM EST Appointment [facility] Women's Wellness [place] [address] Matt Ulrich MD [address] [place] [address] 254 [place] [address] documented as of this encounter Goals Goal [...] documented as of this encounter Care Teams Ball Racker Relationship Specialty Start [place] [address] [place] [address] PCP - General 06/21/10 Arlyn Schmidt MD [address] [place] [address] Consulting Physician Internal Medicine-Endocrinology, Diabetes & Metabolism 11/28/20 Tacho Echavarria MD 1 [place] [address] Internal Medicine-Medical Oncology 11/12/23 Matt Ulrich MD 1 [place] [address] Surgery-Surgical Oncology 12/04/23 Eze Brock Pastoral Care 12/13/23 Annette Walker MSW Youth Associate 05/13/24 Batool Celis MD 1 [facility] [place] [address] Radiation Oncologist Radiology-Radiation Oncology 06/08/24 documented as of this encounter
--- OUTSIDE RECORDS SUMMARY | 2025-02-12 11:10 | XMS_ITS | Encounter Summary ---
Author Organization [place] [address] Care Team Providers Care Electric Organ Assembler And Checker Name Role Phone Chetna Cedeno MD Primary Care Provider [phone] Arlyn Schmidt MD Unavailable [phone] Tacho Echavarria MD Unavailable [phone] Matt Ulrich MD Unavailable [phone] Eze Brock Unavailable Annette Walker Unavailable [phone] Batool Celis MD Unavailable [phone] Reason for Referral * Genetic Lab Test (Routine) - Authorization Not Needed Specialty Diagnoses / Procedures Referred By Contac t Referred To Contact Lab Diagnoses 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) Procedures PHARMACOGENOMIC PANEL Aury Delgado MD 1 [place] [address] Phone: tel: fax: Referral ID Status Reason Start Date Expiration Date Visits Requested Visits Authorized [id number] Authorization Not Needed 01/21/2025 01/21/2026 1 1 Encounter Details Date Type Department Care Team (Late st Contact Info) Description 01/21/2025 Orders Only [facility] 1 [place] [address] Osvaldo Johnson, Clerical Staff Invasive ductal carcinoma [...] pharmacy? Never 11/07/2023 [facility] Utilities Answer Date Recorded In [...] Total Score 5 07/07/2024 [facility] [place] of Occupat ional Health - Occupational Stress [...] any time in the past [facility] were you homeless or living in a snf (including now)? No 11/07/2023 [facility] IP Transportation Answer D ate [...] 11:40 AM EDT Office Visit [facility] [address] [place] [address] [place] [address] [place] [address] 03/02/2025 12:45 PM EDT Procedure visit [facility] [address] [place] [address] Samm Ledesma, INDEXER [address] [place] [address] 03/10/2025 12:30 PM EDT Appointment [place] [address] 03/10/2025 1:00 PM EDT Appointment [facility] On[facility] [place], [place] [id number] Tacho Echavarria MD [address] [place] [address] [id number] 04/29/2025 9:15 AM EDT Appointment [facility] [place] [address] Batool Celis MD [address] [facility] [place] [address] 05/19/2025 2:15 PM EST Office Visit [facility] [address] [place] [address] Sin Tran MD [address] [place] [address] 08/12/2025 10:40 AM EST Appointment [facility] Women's Wellness [place] One [facility] [place] [address] Matt Ulrich MD 20 [place] [address] documented as of this encounter Goals Goal [...] PANEL (01/06/2025) Pharmacogenomic Lab Comments See Comment CLARA Comment:Hemizygous males and homozygous females are reported as HTR2C CC. Pharmacogenomic Lab Method See Comment MARTINGRAEME Comment: This test was developed, and its performance characteristics determined by [facility], a clinical laboratory located at [address] [place] [address]. These tests have not been cleared or approved by the U.S. Food and Drug Administration. The FDA does not require this test to go through premarket FDA review. [employer] is certified under CLIA-88 and accredited by the [employer] as qualified to perform high-complexity testing. This test is approved for clinical use by the [facility] Department of [facility]. This test should not be regarded as investigational or for research. *Genomic DNA was analyzed by PCR using [employer] TaqMan and/or Plain Vanilla BHQ probe-based methods to interrogate the variant locations [...] are associated with more than one haplotype, [employer] infers and reports the most likely diplotype [...] Call. *The variant detection methods validated by [facility] provide >99.9% accuracy for the adult population; [...] or pharmacogenomic specialist. For additional support, contact [facility] through the website or by calling [phone]. Blood 01/06/2025 01/22/2025 Narrative [facility] - 01/27/2025 This result has genomic variants that were not included in this document. us Aury ELIZABETH - ORDERABLES Final Result Performing Organization Address City/State/[facility] Co de Phone Number CLARA [address] [phone] documented in this encounter Visit Diagnoses Diagnosis 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)- Primary documented in this encounter Additional Health Concerns Assessment Noted Time PHQ-9 Depression Total Score: 17 024 8:39 AM EST PHQ-2 Depression Total Score: 5 07/07/20 24 8:39 AM EST documented as of this encounter Care Teams Electric Organ Assembler And Checker Relationship Specialty [place] [address] [place] [address] PCP - General 06/21/10 Arlyn Schmidt MD [address] [place] [address] Consulting Physician Internal Medicine-Endocrinology, Diabetes & Metabolism 11/28/20 Tacho Echavarria MD 1 [place] [phone] Internal Medicine-Medical Oncology 11/12/23 Matt Ulrich MD 1 [place] [id number] Surgery-Surgical Oncology 12/04/23 Eze Brock Pastoral Care 12/13/23 Annette Walker, BULLET ASSEMBLY PRESS OPERATOR Executive Kitchen Manager 05/13/24 Batool Celis MD [address] [facility] [place] [address] Radiation Oncologist Radiology-Radiation Oncology 06/08/24 documented as of this encounter
--- OUTSIDE RECORDS SUMMARY | 2025-02-12 11:10 | XMS_ITS | Encounter Summary ---
Author Organization [place] [address] Care Team Providers Care Pharmacy Cashier Name Role Phone Chetna Cedeno MD Primary Care Provider [phone] Arlyn Schmidt MD Unavailable [phone] Tacho Echavarria MD Unavailable [phone] Matt Ulrich MD Unavailable [phone] Eze Brock Unavailable Annette Walker Unavailable [phone] Batool Celis MD Unavailable [phone] Encounter Details Date Type Department Care Team (Late st Contact Info) Description 01/28/2025 Orders Only [facility] Oncology [place], [place] [id number] Tacho Echavarria MD [address] [place] [address] [phone] Invasive ductal carcinoma of breast, female, right [...] your doctor or pharmacy? Never 11/07/2023 [facility] Utilities Answer Date Recorded In the [...] Date Recorded PHQ-2 Total Score 5 07/07/2024 [facility] [place] of Occupat ional Health - Occupational [...] in a fdc (including now)? No 11/07/2023 [facility] IP Transportation Answer D ate [...] 11:40 AM EDT Office Visit [facility] [address] [place] [address] [place] [address] [place] [address] 03/02/2025 12:45 PM EDT Procedure visit [facility] [address] [place] [address] [phone] Samm Ledesma, INSPECTING SUPERVISOR [address] [address] [place], [place] [phone] 03/10/2025 12:30 PM EDT Appointment [facility] [place], [place] [phone] 03/10/2025 1:00 PM EDT Appointment [facility] [place], [place] [phone] Tacho Echavarria MD [address] [place] [address] [phone] 04/29/2025 9:15 AM EDT Appointment [facility] RAD ONC [place], [place] [phone] Batool Celis MD [address] [place] [address] 05/19/2025 2:15 PM EST Office Visit [place] [phone] [facility] [address] [place] [address] Sin Tran MD [facility] [place] [address] 08/12/2025 10:40 AM EST Appointment [facility] [place] One [facility] [place] [address] Matt Ulrich MD [address] [place] [address] [address] [place] [address] documented as of this encounter [...] documented as of this encounter Results * VITAMIN B12/ FOLIC ACID (02/04/2025 2:03 PM EDT) Vitamin B12 271 232 - 1,245 pg/mL 02/04/2025 4:31 PM EDT [facility] Folate 6.16 >=4.80 ng/mL 02/04/2025 4:31 PM EDT [facility] Blood VENOUS BLOOD / Unknown Venipuncture / Unknown 02/04/2025 2:03 PM EDT 02/04/2025 2:03 PM EDT Narrative [facility] - 02/04/2025 4:31 PM EDT Ingestion of haroon doses of biotin (>5 mg/day) taken within 8 hours of drawing blood sample can interfere with this immunoassay test. Tacho Echavarria MD CHEMISTRY ORDERABLES Final Result [facility] 1 [facility] , [place] [address] * (ABNORMAL) CBC WITH DIFF (02/04/2025 2:03 PM EDT) WBC 8.1 3.7 - 10.3 x10(3)/mc L 02/04/2025 2:07 PM EDT [facility] RBC 2.95(L) 3.90 - 5.20 x10(6)/mc L 02/04/2025 2:07 PM EDT [facility] Hgb 9.4(L) 11.2 - 15.7 g/dL 02/04/2025 2:07 PM EDT [facility] Hct 28.1(L) 34.0 - 45.0 % 02/04/2025 2:07 PM EDT [facility] MCV 95.3 80.0 - 100.0 fL 02/04/2025 2:07 PM EDT [facility] MCH 31.9 26.0 - 34.0 pg 02/04/2025 2:07 PM EDT [facility] MCHC 33.5 30.7 - 35.5 g/dL 02/04/2025 2:07 PM EDT [facility] RDW 15.0(H) <=14.9 % 02/04/2025 2:07 PM EDT [facility] Platelet 163 155 - 369 x10(3)/mc L 02/04/2025 2:07 PM EDT [facility] MPV 8.8 8.8 - 12.5 fL 02/04/2025 2:07 PM EDT [facility] Neut # Prelim 5.6 1.6 - 6.1 x10(3)/mc L 02/04/2025 2:07 PM EDT [facility] Comment:Preliminary automate d absolute neutrophil count. Value may change if manual differential is indicated. Neut Percent 68.4 % 02/04/2025 2:07 PM EDT [facility] Comment:Neutrophils equals s egs plus bands Imm Gran% 0.2 % 02/04/2025 2:07 PM EDT [facility] Comment:Automated count of m etamyelocytes, myelocytes and promyelocytes. Lymph Percent 23.4 % 02/04/2025 2:07 PM EDT [facility] Cochran Percent 5.7 % 02/04/2025 2:07 PM EDT [facility] Eos Percent 2.1 % 02/04/2025 2:07 PM EDT [facility] Baso Percent 0.2 % 02/04/2025 2:07 PM EDT [facility] Neut # 5.6 1.6 - 6.1 x10(3)/mc L 02/04/2025 2:07 PM EDT [facility] Comment:Neutrophils equals s egs plus bands IMMGRAN# 0.0 0.0 - 0.1 x10(3)/mc L 02/04/2025 2:07 PM EDT [facility] Comment:Automated count of m etamyelocytes, myelocytes and promyelocytes. An absolute IG <0.1 is reported as 0.0. Lymph # 1.9 1.2 - 3.9 x10(3)/mc L 02/04/2025 2:07 PM EDT [facility] Cochran # 0.5 0.3 - 0.9 x10(3)/mc L 02/04/2025 2:07 PM EDT [facility] Eos# 0.2 0.0 - 0.5 x10(3)/mc L 02/04/2025 2:07 PM EDT [facility] Baso # 0.0 0.0 - 0.1 x10(3)/mc L 02/04/2025 2:07 PM EDT [facility] Blood VENOUS BLOOD / Unknown Venipuncture / Unknown 02/04/2025 2:03 PM EDT 02/04/2025 2:03 PM EDT us Tacho Echavarria MD HEMATOLOGY ORDERABLES Final Result Performing Organization Address [facility]/ZIP Co de Phone Number [facility] [address] [place] [phone] * IRON+TIBC (02/04/2025 2:02 PM EDT) Pathologist [facility] Iron 82 30 - 160 mcg/dL 02/04/2025 2:59 PM EDT [facility] Transferrin 279 200 - 360 mg/dL 02/04/2025 2:59 PM EDT [facility] Saturation 21 20 - 50 % 02/04/2025 2:59 PM EDT [facility] TIBC 391 250 - 400 mcg/dL 02/04/2025 2:59 PM EDT [facility] Blood VENOUS BLOOD / Unknown Venipuncture / Unknown 02/04/2025 2:02 PM EDT 02/04/2025 2:02 PM EDT us Tacho Echavarria MD CHEMISTRY ORDERABLES Final Result Performing Organization Address [facility]/ZIP Co de Phone Number [facility] 1 [place] [address] [facility] 1 [facility], [place] [address] * (ABNORMAL) COMPREHENSIVE METABOLIC PANEL (02/04/2025 2:02 PM EDT) Pathologist [facility] Sodium 142 136 - 145 mmol/L 02/04/2025 2:28 PM EDT [facility] Potassium 3.3(L) 3.5 - 5.0 mmol/L 02/04/2025 2:28 PM EDT [facility] Chloride 108(H) 98 - 107 mmol/L 02/04/2025 2:28 PM EDT [facility] Total CO2 19(L) 22 - 29 mmol/L 02/04/2025 2:28 PM EDT [facility] Anion Gap 15 7 - 16 mmol/L 02/04/2025 2:28 PM EDT [facility] Calcium 8.6 8.6 - 10.4 mg/dL 02/04/2025 2:28 PM EDT [facility] Glucose Lvl 134(H) 70 - 99 mg/dL 02/04/2025 2:28 PM EDT [facility] BUN 12 6 - 20 mg/dL 02/04/2025 2:28 PM EDT [facility] Creatinine 0.78 0.51 - 1.30 mg/dL 02/04/2025 2:28 PM EDT [facility] Albumin 3.8 3.5 - 5.2 gm/dL 02/04/2025 2:28 PM EDT [facility] Total Protein 6.0(L) 6.4 - 8.3 gm/dL 02/04/2025 2:28 PM EDT [facility] Bili Total 0.3 0.2 - 1.3 mg/dL 02/04/2025 2:28 PM EDT [facility] ALT 8 <=41 U/L 02/04/2025 2:28 PM EDT [facility] AST 12 <=40 U/L 02/04/2025 2:28 PM EDT [facility] Alk Phos 95 36 - 123 U/L 02/04/2025 2:28 PM EDT [facility] eGFR (CKD-EPIcr 2020) 88 >=60 mL/min/1.7 3 m2 02/04/2025 2:28 PM EDT [facility] Comment:Estimated GFR was ca lculated using the CKD-EPIcr (2020) equation refit without race. The equation is recommended by the National Kidney Foundation - [place] [employer] of Nephrology Task Force. Blood VENOUS BLOOD / Unknown Venipuncture / Unknown 02/04/2025 2:02 PM EDT 02/04/2025 2:02 PM EDT Tacho Echavarria MD CHEMISTRY ORDERABLES Final Result [facility] 1 [place] [phone] documented in this encounter Visit Diagnoses Diagnosis Invasive ductal carcinoma of breast, female, right (HCC)- Primary documented in this encounter Additional Health Concerns Assessment Noted Time PHQ-9 Depression Total Score: 17 024 8:39 AM EST PHQ-2 Depression Total Score: 5 07/07/20 24 8:39 AM EST documented as of this encounter Care Teams Pharmacy Cashier Relationship Specialty [place] [address] [place] [address] PCP - General 06/21/10 Arlyn Schmidt MD [address] [place], [place] 0640[address] Consulting Physician Internal Medicine-Endocrinology, Diabetes & Metabolism 11/28/20 Tacho Echavarria MD 1 [place], [place] [phone] Internal Medicine-Medical Oncology 11/12/23 Matt Ulrich MD 1 [place], [place] [phone] Surgery-Surgical Oncology 12/04/23 Eze Brock Pastoral Care 12/13/23 Annette Walker, ARACELI Physician Support Coordinator 05/13/24 Batool Celis MD 1 [facility] [place] [address] Radiation Oncologist Radiology-Radiation Oncology 06/08/24 documented as of this encounter
--- OUTSIDE RECORDS SUMMARY | 2025-02-12 11:10 | XMS_ITS | Encounter Summary ---
Author [place] [address] Care Team Providers Care Woodenware Assembler Name Role Phone Chetna Cedeno MD Primary Care Provider [phone] Arlyn Schmidt MD Unavailable [phone] Tacho Echavarria MD Unavailable [phone] Matt Ulrich MD Unavailable [phone] Eze Brock Unavailable Annette Walker Unavailable [phone] Batool Celis MD Unavailable [phone] Reason for Visit * Reason Onset Date Comments Patient Question 01/28/2025 question about test result Encounter Details Date Type Department Care Team (Late st Contact Info) Description 01/28/2025 Telephone [facility] Medical Oncology [place], [place] [phone] Tacho Echavarria MD [address] [place] [address] [phone] Patient Question (question about test result ) [...] your doctor or pharmacy? Never 11/07/2023 [facility] Utilities Answer Date Recorded In [...] Date Recorded PHQ-2 Total Score 5 07/07/2024 [facility] of Occupat ional Health - Occupational Stress [...] a senior living (including now)? No 11/07/2023 [facility] IP Transportation Answer D ate [...] Pharmacogenetics results are in and forwarded to . Messagemind message sent to patient, no need to move appt up sooner at this time. * Telephone Encounter - Sendy Waddell NA - 01/28/2025 10:43 AM EDT Reason for call: [facility], said it was something to do withDNA and what medications to take. Said she was unable to read results and was calling to see if anything needed to be done or if she was ok to wait until her appt. Preferred call back number: [phone] documented in this encounter Plan of Treatment Upcoming Encounters Date Type Department Care Team (Late st Contact Info) Description 03/02/2025 11:40 AM EDT Office Visit [facility] [place] [address] [place] [address] [place] [address] [place] [address] 03/02/2025 12:45 PM EDT Procedure visit [facility] [address] [place] [address] Samm Ledesma, ENERGY TRADER [address] [facility] 100 [place] [address] 03/10/2025 12:30 PM EDT Appointment [facility] [place], [place] [phone] 03/10/2025 1:00 PM EDT Appointment [facility] [place] [address] Tacho Echavarria MD [address] [place] [address] [phone] 04/29/2025 9:15 AM EDT Appointment [facility] RAD ONC [place], [place] [phone] Batool Celis MD [address] [place] [address] 05/19/2025 2:15 PM EST Office Visit [address] [address] Sin Tran MD [address] [place] [address] 08/12/2025 10:40 AM EST Appointment [facility] Women's Wellness [facility] [place] [address] Matt Ulrich MD [address] [place] [place] [address] documented as of this encounter Goals Goal [...] documented as of this encounter Care Teams Woodenware Assembler Relationship Specialty Start [place] [address] [place] [address] PCP - General 06/21/10 Arlyn Schmidt MD [address] [place] [address] Consulting Physician Internal Medicine-Endocrinology, Diabetes & Metabolism 11/28/20 Tacho Echavarria MD 1 [place] [address] Internal Medicine-Medical Oncology 11/12/23 Matt Ulrich MD 1 [place] [address] Surgery-Surgical Oncology 12/04/23 Eze Brock Pastoral Care 12/13/23 Annette Walker MSW Director Of Labor And Delivery 05/13/24 Batool Celis MD [address] [place] [address] [place] [address] Radiation Oncologist Radiology-Radiation Oncology 06/08/24 documented as of this encounter
--- OUTSIDE RECORDS SUMMARY | 2025-02-12 11:10 | XMS_ITS | Encounter Summary ---
Author Organization [place] [address] Care Team Providers Care Senior Java Software Engineer Name Role Phone Chetna Cedeno MD Primary Care Provider [phone] Arlyn Schmidt MD Unavailable [phone] Tacho Echavarria MD Unavailable [phone] Matt Ulrich MD Unavailable [phone] Eze Brock Unavailable Annette Walker Unavailable [phone] Batool Celis MD Unavailable [phone] Reason for Visit * Reason Comments Oncology Nurse Navigation Encounter Details Date Type Department Care Team (Late st Contact Info) Description 02/10/2025 Patient Outreach [facility] CANCER CR TUMOR BD [place], [place] [id number] Tacho Echavarria MD [address] [place] [address] [id number] Oncology Nurse Navigation Social History Tobacco Use [...] from your doctor or pharmacy? Never 11/07/2023 [facility] Utilities Answer Date Recorded In [...] any time in the past 12 m [facility], were you homeless or living in a retirement (including now)? No 11/07/2023 [facility] IP Transportation Answer D ate Recorded [...] documented in this encounter Progress Notes * Tina Gonzáles RN - 02/12/2025 9:13 AM EDT Adjusted patient's letter and reprinted. Sent update to patient via MyChart with form that will need to be filled out. * Rosana Gupta RN - 02/10/2025 12:08 PM EDT MD is OOO until Feb 20. Also, patient will need to fill out the form from Federal Student Aid, Cancer Treatment Deferment Request . She can get that at Studentaid.gov The air conditioner form is in her mychart under letters. * Rosana Gupta RN - 02/10/2025 10:10 AM EDT Awaiting response from Dr. Echavarria for approval for letter for student loan forgiveness for patient. * Sihlpa Cline RN - 02/10/2025 9:13 AM EDT Navigation Assessment Chief complaint: Chief Complaint Patient presents with Oncology Nurse Navigation Current Status: Active Diagnosis: Breast Visit Type: Telephone - incoming Financial/Social Intervention: Patient called NN asking for a copy (printed for flower picker) of the letter that Dr. Echavarria wrote regarding the air conditioner and asked for an update on getting a letter to help with her student loanforgiveness. She is in the area today and is asking if she can come and flower picker these letters Theletter about the air conditioner looks like it need editing. NN will send message to clinic. Also dora thompson voicemail for Dr. Echavarria's nurse. Onc NN will continue to follow patient. documented in this encounter Plan of Treatment Upcoming Encounters Date Type Department Care Team (Late st Contact Info) Description 03/02/2025 11:40 AM EDT Office Visit [facility] [address] [place] [address] [place] [address] [place] [address] 03/02/2025 12:45 PM EDT Procedure visit [facility] [address] [place] [address] Samm Ledesma, NITRO WORKER [address] [place], [place] [id number] 03/10/2025 12:30 PM EDT Appointment [place] [address] 03/10/2025 1:00 PM EDT Appointment [facility] [place] [address] Tacho Echavarria MD [address] [place] [address] 04/29/2025 9:15 AM EDT Appointment [facility] [place] [address] Batool Celis MD [address] [place] [address] [id number] 05/19/2025 2:15 PM EST Office Visit [place] [address] [place] [address] Sin Tran MD [address] [place] [address] 08/12/2025 10:40 AM EST Appointment [facility] Women's Wellness [place] One [facility] [place] [address] Matt Ulrich MD [address] [place] [address] DR [address] [place] [address] documented as of this encounter Goals Goal Patient Goal Type Associated Problems Recent Progress Patient-Stated? Author Blood Pressure < 140/90 Blood Pressure 121/77(02/04 2:04 PM EDT) No Chetan Cedeno MD Breast Health Breast Health On [...] documented as of this encounter Care Teams Senior Java Software Engineer Relationship Specialty [place] [address] [place] [address] PCP - General 06/21/10 Arlyn Schmidt MD [address] [place], [place] [id number] Consulting Physician Internal Medicine-Endocrinology, Diabetes & Metabolism 11/28/20 Tacho Echavarria MD 1 [place], [place] [phone] Internal Medicine-Medical Oncology 11/12/23 Matt Ulrich MD 1 [place], [place] [phone] Surgery-Surgical Oncology 12/04/23 Eze Brock Pastoral Care 12/13/23 Annette Walker, SENIOR ERP CONSULTANT Collections Clerk 05/13/24 Batool Celis MD 1 [facility] CANCER [place], [place] [address]7 Radiation Oncologist Radiology-Radiation Oncology 06/08/24 documented as of this encounter
--- OUTSIDE RECORDS SUMMARY | 2025-02-12 11:10 | XMS_ITS | Encounter Summary ---
Author [place] [address] Care Team Providers Care Bump Grader Operator Name Role Phone Chetna Cedeno MD Primary Care Provider [phone] Arlyn Schmidt MD Unavailable [phone] Tacho Echavarria MD Unavailable [phone] Matt Ulrich MD Unavailable [phone] Eze Brock Unavailable Annette Walker Unavailable [phone] Batool Celis MD Unavailable [phone] Reason for Visit * Reason Onset Date Comments Medication Refill 12/29/2024 Encounter Details Date Type Department Care Team (Late st Contact Info) Description 12/29/[address] [address] Munir Hilton MD [address] [place] [address] Medication Refill Social History Tobacco Use Types [...] often do you attend chur ch or baptist services? 1 to 4 times per year [...] Date Recorded PHQ-2 Total Score 5 07/07/2024 [facility] of Occupat ional Health - Occupational Stress [...] in a fdc (including now)? No 11/07/2023 [facility] IP Transportation Answer D ate Recorded In [...] 11:40 AM EDT Office Visit [facility] [address] [place] [address] [place] [address] [place] [address] 03/02/2025 12:45 PM EDT Procedure visit [facility] [address] [facility] [address] [place] [address] Samm Ledesma, PIN DRAFTING MACHINE TENDER [address] [place] [address] 03/10/2025 12:30 PM EDT Appointment [place] [address] 03/10/2025 1:00 PM EDT Appointment [facility] Oncology [place], [place] [phone] Tacho Echavarria MD [address] [place] [address] 04/29/2025 9:15 AM EDT Appointment [facility] [place] [address] Batool Celis MD 1 [facility] [place] [address] 05/19/2025 2:15 PM EST Office Visit [address] 401 [facility] [address] [place] [address] Sin Tran MD [address] [place] [address] [place] [address] 08/12/2025 10:40 AM EST Appointment [facility] Women's Wellness [facility] [place] [phone] Matt Ulrich MD [address] [facility] [place] 254 [place] [address] documented as of this encounter Goals Goal Patient Goal Type Associated Problems Recent Progress Patient-Stated? Author Blood Pressure < 140/90 Blood Pressure 121/77(02/04 2:04 PM EDT) No Chetna Cedeno MD [facility] Breast Health On track(2024 11:27 AM EDT) No Jasmin Porter, RN Note: Patient acknowledges understanding of new diagnosis, plan of care, available resources and how to contact Nurse Navigator with any future questions or concerns. Breast [facility] Breast Health Not on track(2024 11:27 [...] documented as of this encounter Care Teams Bump Grader Operator Relationship Specialty [place] [address] [place] [address] PCP - General 06/21/10 Arlyn Schmidt MD [address] [place] [address] Consulting Physician Internal Medicine-Endocrinology, Diabetes & Metabolism 11/28/20 Tacho Echavarria MD 1 [place], [place] 027[address]17 Internal Medicine-Medical Oncology 11/12/23 Matt Ulrich MD 1 [place], [place] 0030117 Surgery-Surgical Oncology 12/04/23 Eze Brock Pastoral Care 12/13/23 Annette Walker, ARACELI Enterostomal Nurse 05/13/24 Batool Celis MD 1 [facility] [place] [address] Radiation Oncologist Radiology-Radiation Oncology 06/08/24 documented as of this encounter
--- OUTSIDE RECORDS SUMMARY | 2025-02-12 11:10 | XMS_ITS | Encounter Summary ---
Author Organization [place] [address] Care Team Providers Care Inspector Quality Assurance Name Role Phone Chetna Cedeno MD Primary Care Provider [phone] Arlyn Schmidt MD Unavailable [phone] Tacho Echavarria MD Unavailable [phone] Matt Ulrich MD Unavailable [phone] Eze Brock Unavailable Annette Walker Unavailable [phone] Batool Celis MD Unavailable [phone] Encounter Details Date Type Department Care Team (Late st Contact Info) Description 02/10/2025 Orders Only [facility] [address] Shilpa lCine, RN Social History Tobacco Use Types Packs/Day [...] doctor or pharmacy? Never 11/07/2023 [facility] Utilities Answer Date Recorded In the past 12 months has [employer], oil, or water [employer] threatened to shut off services in your [...] any clubs o r organizations such as jew groups, unions, fraternal or athletic groups, or [...] [facility] of Occupat ional [facility] - Occupational Stress Questionnaire Answer Date [...] in a retirement (including now)? No 11/07/2023 [facility] IP Transportation Answer D [...] AM EDT Office Visit [facility] [address] [place] [address] [place] [address] [place] [address] 03/02/2025 12:45 PM EDT Procedure visit [facility] NEUROLOG[facility] [address] [place] [address] Samm Ledesma, CERTIFIED TECHNICIAN SPECIALIST [address] [facility] [facility] [address] [place] [address] 03/10/2025 12:30 PM EDT Appointment [place] [address] 03/10/2025 1:00 PM EDT Appointment [facility] Medical Oncology [place], [place] 865[address] Tacho Echavarria MD [address] [place] [address] 04/29/2025 9:15 AM EDT Appointment [facility] [address] Batool Celis MD [address] [place] [address] CANCER CARE [place], [place] 5865717 05/19/2025 2:15 PM EST Office Visit [place] [address] [place] [address] Sin Tran MD [facility] [place] [place] [phone] 08/12/2025 10:40 AM EST Appointment [facility] Women's Wellness [place] One [facility] [place] [address] Matt Ulrich MD [address] [place] [address] MUSA Hameed [facility] [address] documented as of this encounter Goals Goal Patient Goal Type Associated Problems Recent Progress Patient-Stated? Author Blood Pressure < 140/90 Blood Pressure 121/77(02/04 2:04 PM EDT) No Chetna Cedeno MD Breast [facility] Breast Health On track(2024 11:27 AM [...] documented as of this encounter Care Teams Inspector Quality Assurance Relationship Specialty [place] [address] [place] [address] PCP - General 06/21/10 Arlyn Schmidt MD [address] [place], [place] [address] Consulting Physician Internal Medicine-Endocrinology, Diabetes & Metabolism 11/28/20 Tacho Echavarria MD 1 [place] [address] Internal Medicine-Medical Oncology 11/12/23 Matt Ulrich MD 1 [place] [address] Surgery-Surgical Oncology 12/04/23 Eze Brock Pastoral Care 12/13/23 Annette Walker, [facility] Ironer 05/13/24 Batool Celis MD 1 [facility] [place] [address] Radiation Oncologist Radiology-Radiation Oncology 06/08/24 documented as of this encounter
--- OUTSIDE RECORDS SUMMARY | 2025-02-12 11:10 | XMS_ITS | Encounter Summary ---
Author Organization [place] [address] Care Team Providers Care Operating Table Assembler Name Role Phone Chetna Cedeno MD Primary Care Provider [phone] Arlyn Schmidt MD Unavailable [phone] Tacho Echavarria MD Unavailable [phone] Matt Ulrich MD Unavailable [phone] Eze Brock Unavailable Annette Walker Unavailable [phone] Batool Celis MD Unavailable [phone] Reason for Visit * Reason Comments Oncology Nurse Navigation Encounter Details Date Type Department Care Team (Late st Contact Info) Description 01/29/2025 Patient Outreach [facility] CANCER CR TUMOR BD [place], [place] [phone] Shilpa Cline, RN Oncology Nurse Navigation Social [...] th e electric, gas, oil, or water [email or web address] threatened to shut off services in your [...] Total Score 5 07/07/2024 [facility] [place] of Occupat ional Health - Occupational Stress [...] in a prison (including now)? No 11/07/2023 [facility] [...] 11:40 AM EDT Office Visit [facility] [address] [place] [address] [place] [address] [place] [address] 03/02/2025 12:45 PM EDT Procedure visit [facility] NE[facility] [address] [facility] [address] [place] [address] Samm Ledesma APRN [address] [facility] [address] [place] [address] 03/10/2025 12:30 PM EDT Appointment [place] [address] 03/10/2025 1:00 PM EDT Appointment [facility] [place] [address] Tacho Echavarria MD [address] [place] [address] 04/29/2025 9:15 AM EDT Appointment [facility] [address] Batool Celis MD 1 [facility] [place] [address] 05/19/2025 2:15 PM EST [facility] [address] [place] [address] 401 [facility] 1D [place] [address] Sin Tran MD [address] [place] [address] 08/12/2025 10:40 AM EST Appointment [facility] Women's Wellness [place] [address] Matt Ulrich MD [address] [place] [address] 254 [place] [address] documented as of this encounter Goals Goal [...] documented as of this encounter Care Teams Operating Table Assembler Relationship Specialty [place] [address] [place] [address] PCP - General 06/21/10 Arlyn Schmidt MD [address] [place] [address] Consulting Physician Internal Medicine-Endocrinology, Diabetes & Metabolism 11/28/20 Tacho Echavarria MD 1 [place], [place] 3211117 Internal Medicine-Medical Oncology 11/12/23 Matt Ulrich MD 1 [place] [address] Surgery-Surgical Oncology 12/04/23 Eze Brock Pastoral Care 12/13/23 Annette Walker MSW Flame Hardening Machine Operator 05/13/24 Batool Celis MD 1 [facility] [place] [address] Radiation Oncologist Radiology-Radiation Oncology 06/08/24 documented as of this encounter
--- OUTSIDE RECORDS SUMMARY | 2025-02-12 11:10 | XMS_ITS | Encounter Summary ---
Author Organization [place] [address] Care Team Providers Care Iphone Developer Name Role Phone Chetna Cedeno MD Primary Care Provider [phone] Arlyn Schmidt MD Unavailable [phone] Tacho Echavarria MD Unavailable [phone] Matt Ulrich MD Unavailable [phone] Eze Brock Unavailable Annette Walker Unavailable [phone] Batool Celis MD Unavailable [phone] Reason for Visit * Reason Onset Date Comments Symptom Call 01/29/2025 Diarrhea, body a ches, vomiting Encounter Details Date Type Department Care Team (Late st Contact Info) Description 01/29/2025 Telephone [facility] Medical Oncology [place], [place] [phone] Tacho Echavarria MD [address] [place] [address] [id number] Symptom Call (Diarrhea, body aches, vomiting) Social [...] from your doctor or pharmacy? Never 11/07/2023 [facility] Utilities Answer Date Recorded In [...] 5 07/07/2024 [facility] of Occupat ional Health - Occupational Stress [...] any time in the past 12 m [facility], were you homeless or living in a retirement (including now)? No 11/07/2023 [facility] IP [...] can make it all the way to [facility] [place] [facility] without being sick. She will call friend [...] the Patient seen at:[facility] Preferred call back number:[phone] RN is aware documented in this encounter Plan of Treatment Upcoming Encounters Date Type Department Care Team (Late st Contact Info) Description 03/02/2025 11:40 AM EDT Office Visit [facility] [address] [place] [address] [place] [address] [place] [address] 03/02/2025 12:45 PM EDT Procedure visit [facility] [address] [facility] [place] [address] Samm Ledesma APRN [address] [facility] [place] [address] 03/10/2025 12:30 PM EDT Appointment [facility] CAN[facility] CTR [place], [place] 7984817 03/10/2025 1:00 PM EDT Appointment [facility] Medical Oncology [place], [place] 3251717 Tacho Echavarria MD [address] [place] [address] 04/29/2025 9:15 AM EDT Appointment [facility] RAD ONC [place] 0555017 Batool Celis MD [address] [facility] [place] [place] [address] 05/19/2025 2:15 PM EST Office Visit [facility] [address] [place] [address] 1D [place] [address] Sin Tran MD [address] [place] [address] 08/12/2025 10:40 AM EST Appointment [facility] Women's Wellness [place] One [facility] [place] [address] Matt Ulrich MD 20 [facility] 254 [place] [phone] documented as of this encounter Goals Goal [...] documented as of this encounter Care Teams Iphone Developer Relationship Specialty [place] [address] [place] [address] PCP - General 06/21/10 Arlyn Schmidt MD [address] [place], [place] 607[address] Consulting Physician Internal Medicine-Endocrinology, Diabetes & Metabolism 11/28/20 Tacho Echavarria MD 1 [place], [place] 5393117 Internal Medicine-Medical Oncology 11/12/23 Matt Ulrich MD 1 [place] [address] Surgery-Surgical Oncology 12/04/23 Eze Brock Pastoral Care 12/13/23 Annette Walker MSW Sustainability Purchasing Agent 05/13/24 Batool Celis MD 1 [facility] [address] Radiation Oncologist Radiology-Radiation Oncology 06/08/24 documented as of this encounter
--- OUTSIDE RECORDS SUMMARY | 2025-02-12 11:10 | XMS_ITS | Encounter Summary ---
Author Organization [place] [address] Care Team Providers Care Wheat Shipper Name Role Phone Chetna Cedeno MD Primary Care Provider [phone] Arlyn Schmidt MD Unavailable [phone] Tacho Echavarria MD Unavailable [phone] Matt Ulrich MD Unavailable [phone] Eze Brock Unavailable Annette Walker Unavailable [phone] Batool Celis MD Unavailable [phone] Encounter Details Date Type Department Care Team (Latest Contact Info) Description 01/27/2025 Results Follow-Up [facility] 1 [place] [address] Benito Snell, PharmD PHARMACOGENOMIC PANEL [...] from your doctor or pharmacy? Never 11/07/2023 [facility] Utilities Answer Date Recorded In the [...] often do you attend chur ch or nondenominational services? 1 to 4 times per year [...] Date Recorded PHQ-2 Total Score 5 07/07/2024 [facility] of Occupat ional [facility] - Occupational Stress Questionnaire Answer Date [...] in a detention (including now)? No 11/07/2023 [facility] IP Transportation Answer [...] AM EDT Office Visit [facility] [facility] [address] [place] [address] [place] [address] [place] [address] 03/02/2025 12:45 PM EDT Procedure visit [facility] NEUROLOG[facility] [address] [facility] [address] [place] [address] Samm Ledesma, JET WORKER [address] [place], [place] [address] 03/10/2025 12:30 PM EDT Appointment [place] [address] 03/10/2025 1:00 PM EDT Appointment [facility] Medical Oncology [place], [place] 2312017 Tacho Echavarria MD [address] [place] [phone] 04/29/2025 9:15 AM EDT Appointment [place] [address] Batolo Celis MD [address] [place] [address] CANCER CARE [place], [place] [id number] 05/19/2025 2:15 PM EST Office Visit [address] [place] [address] Sin Tran MD [address] [place], [place] [address], [place] [address] 08/12/2025 10:40 AM EST Appointment [facility] Women's Wellness [place] One [facility] [place] [address] Matt Ulrich MD [address] [facility] [address] [address] MUSA Hameed [place] [address] documented as of this encounter Goals [...] Diagnoses Diagnosis 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 hypercoagulable state documented in this encounter Additional Health Concerns Assessment Noted Time PHQ-9 Depression Total Score: 17 024 8:39 AM EST PHQ-2 Depression Total Score: 5 07/07/20 24 8:39 AM EST documented as of this encounter Care Teams Wheat Shipper Relationship Specialty [place] [address] [place] [address] PCP - General 06/21/10 Arlyn Schmidt MD [address] [place] [address] Consulting Physician Internal Medicine-Endocrinology, Diabetes & Metabolism 11/28/20 Tacho Echavarria MD 1 [place], [place] 952[address]17 Internal Medicine-Medical Oncology 11/12/23 Matt Ulrich MD 1 [place], [place] 6027[address] Surgery-Surgical Oncology 12/04/23 Eze Brock Pastoral Care 12/13/23 Annette Walker, SALES TRADER Tool Maintenance Worker 05/13/24 Batool Celis MD 1 [facility] [place] [address] Radiation Oncologist Radiology-Radiation Oncology 06/08/24 documented as of this encounter
--- OUTSIDE RECORDS SUMMARY | 2025-02-12 11:10 | XMS_ITS | Encounter Summary ---
Author [place] [address] Care Team Providers Care Ton Container Shipper Name Role Phone Chetna Cedeno MD Primary Care Provider [phone] Arlyn Schmidt MD Unavailable [phone] Tacho Echavarria MD Unavailable [phone] Matt Ulrich MD Unavailable [phone] Eze Brock Unavailable Annette Walker Unavailable [phone] Batool Celis MD Unavailable [phone] Encounter Details Date Type Department Care Team (Late st Contact Info) Description 01/18/2025 Telephone Cancer Care Medical Oncology [place], [place] [id number] Tacho Echavarria MD [address] [place] [address] [id number] Social History Tobacco Use Types Packs/Day Years [...] Date Recorded PHQ-2 Total Score 5 07/07/2024 [facility] of Occupat ional Health - Occupational Stress [...] in a jail (including now)? No 11/07/2023 [facility] IP [...] Telephone Encounter - Tina Gonzáles RN - 02/12/2025 8:54 AM EDT Letter edited and re printed for patient. * Telephone Encounter - Rosana Gupta RN - 01/18/2025 12:00 PM EDT Patient requests LOMN for air conditioning unit at her apartment. Letter created and sent through [employer] documented in this encounter Plan of Treatment Upcoming Encounters Date Type Department Care Team (Late st Contact Info) Description 03/02/2025 11:40 AM EDT Office Visit [facility] [address] [place] [address] [place] [address] [place] [address] 03/02/2025 12:45 PM EDT Procedure visit [facility] [address] [place] [address] Samm Ledesma APRN [address] [facility] [facility] [address] [place] [address] 03/10/2025 12:30 PM EDT Appointment [place] [address] 03/10/2025 1:00 PM EDT Appointment [facility] [place] [address] Tacho Echavarria MD 1 [place] [address] 04/29/2025 9:15 AM EDT Appointment [facility] [place] [address] Batool Celis MD [address] [facility] [place] [address] 05/19/2025 2:15 PM EST Office Visit [facility] [address] [place] [address] [address] [place] [address] Sin Tran MD [address] [place] [address] 08/12/2025 10:40 AM EST Appointment [facility] Women's Wellness [facility] [place] [address] Matt Ulrich MD 20 [facility] 254 [place] [address] documented as of this encounter Goals Goal [...] documented as of this encounter Care Teams Ton Container Shipper Relationship Specialty [place] [address] [place] [address] PCP - General 06/21/10 Arlyn Schmidt MD [facility] [place] [place] [address] [place], [place] [id number] Consulting Physician Internal Medicine-Endocrinology, Diabetes & Metabolism 11/28/20 Tacho Echavarria MD [address] [place] [address] Internal Medicine-Medical Oncology 11/12/23 Matt Ulrich MD [address] [place] [address] Surgery-Surgical Oncology 12/04/23 Eze Brock Pastoral Care 12/13/23 Annette Walker MSW Shed Boss 05/13/24 Batool Celis MD [address] [place] [address] [place] [address] Radiation Oncologist Radiology-Radiation Oncology 06/08/24 documented as of this encounter
--- OUTSIDE RECORDS SUMMARY | 2025-02-12 11:10 | XMS_ITS | Encounter Summary ---
Author Organization [place] [address] Care Team Providers Care Studio Technician Video Operator Name Role Phone Chetna Cedeno MD Primary Care Provider [phone] Arlyn Schmidt MD Unavailable [phone] Tacho Echavarria MD Unavailable [phone] Matt Ulrich MD Unavailable [phone] Eze Brock Unavailable Annette Walker GENERAL DENTIST/OWNER Unavailable [phone] Batool Cleis MD Unavailable [phone] Encounter Details Date Type Department Care Team (Late st Contact Info) Description 01/29/2025 Social Work [facility] Cancer Care [facility] [place] [address] Sonny Fleming, GENERAL DENTIST/OWNER Social History Tobacco Use Types Packs/Day Years [...] your doctor or pharmacy? Never 11/07/2023 [facility] Utilities Answer Date Recorded In the past 12 months has th e electric, gas, oil, or water [employer] threatened to shut off services in your [...] Date Recorded PHQ-2 Total Score 5 07/07/2024 [facility] [place] of Occupat ional Health - Occupational Stress [...] time in the past 12 m [facility] [place], were you homeless or living in a senior care (including now)? No 11/07/2023 [facility] IP Transportation Answer D ate [...] Assessment Author No 12/06/2022 2:08 PM EDT AaliyahmasonMacarena CCMA documented as of this encounter Mental Status * Because of a physical, mental or emotional condition, does this person have serious difficulty concentrating, remembering or making decisions? Answer Entry Date Author No 12/06/2022 2:08 PM EDT DoniMacarena CCMSharonda documented in this encounter Progress Notes * Sonny Fleming MSW - 01/29/2025 3:12 PM EDT 01/29/25 1511 Water Pipe Installer Assessment Referred By phone call Disease/[place] Site Station Superintendent Assignment Breast cancer Referral [facility]: [facility] Reason for Referral transportation Identified Needs Adjustment to illness;Transportation Social Work Interventions Transportation;Brief Couseling/Support;Education/Information FARHAD Romo received a call from pt stating that she is in need of a waiver for transportation from her health insurance as she is not feeling well enough to drive to her appointments. COATING MACHINE OPERATOR followed up with MAGAN Reid to discuss [...] 11:40 AM EDT Office Visit [facility]O MERRITT [address] [place] [address] [place] [address] [place] [address] 03/02/2025 12:45 PM EDT Procedure visit [facility] NEUROLOG[facility]ECTOR [address] [place] [address] Samm Ledesma, LEAD PHP DEVELOPER [address] [address] [address] [place] [address] 03/10/2025 12:30 PM EDT Appointment [facility] [place], [place] [id number] 03/10/2025 1:00 PM EDT Appointment Cancer Care Medical Oncology [place], [place] 3765[address] Tacho Echavarria MD [address] [place] [address] [id number] 04/29/2025 9:15 AM EDT Appointment [place] [address] Batool Celis MD [address] [place] [address] [place] [address] 05/19/2025 2:15 PM EST Office Visit [address] [address] Sin Tran MD [address] [place] [address] 08/12/2025 10:40 AM EST Appointment [facility] Women[facility]ness [facility] [place] [address] Matt Ulrich MD [address] [place] [address] 254 [place] [address] documented as of this encounter Goals Goal [...] documented as of this encounter Care Teams Studio Technician Video Operator Relationship Specialty [place] [address] [place] [address] PCP - General 06/21/10 Arlyn Schmidt MD [address] [place] [phone] Consulting Physician Internal Medicine-Endocrinology, Diabetes & Metabolism 11/28/20 Tacho Echavarria MD 1 [place] [address] Internal Medicine-Medical Oncology 11/12/23 Matt Ulrich MD 1 [place] [address] Surgery-Surgical Oncology 12/04/23 Eze Brock Pastoral Care 12/13/23 Annette Walker MSW Station Superintendent 05/13/24 Batool Celis MD [address] [place] [address] [place] [address] Radiation Oncologist Radiology-Radiation Oncology 06/08/24 documented as of this encounter
--- OUTSIDE RECORDS SUMMARY | 2025-02-12 11:11 | XMS_ITS | Encounter Summary ---
Author Organization [place] [address] Care Team Providers Care Director Of Cloud Services Name Role Phone Chetna Cedeno MD Primary Care Provider [phone] Arlyn Schmidt MD Unavailable [phone] Tacho Echavarria MD Unavailable [phone] Matt Ulrich MD Unavailable [phone] Eze Brock Unavailable Annette Walker Unavailable [phone] Batool Celis MD Unavailable [phone] Reason for Visit * Reason Onset Date Comments Follow-up 02/12/2025 Updated form, lo an deferment form Encounter Details Date Type Department Care Team (Late st Contact Info) Description 02/12/2025 Telephone Cancer Care Medical Oncology [place], [place] [phone] Eze Rowland MD [address] [place] [address] [phone] Follow-up (Updated form, loan deferment form ) Social History Tobacco Use Types Packs/Day [...] your doctor or pharmacy? Never 11/07/2023 [facility] Utilities Answer Date Recorded In [...] often do you attend chur ch or taoism services? 1 to 4 times per year [...] 5 07/07/2024 [facility] [place] of Occupat ional Health - Occupational Stress [...] in a detention (including now)? No 11/07/2023 [facility] IP Transportation [...] Encounter - Tina Gonzáles RN - 02/12/2025 9:15 AM EDT Patient requesting note for AC unit. Note updated and reprinted for patient. Attached letter patient will need to fill out for loan deferment via [employer] message. documented in this encounter Plan of Treatment Upcoming Encounters Date Type Department Care Team (Late st Contact Info) Description 03/02/2025 11:40 AM EDT Office Visit [facility] [address] [place] [address] [place] [address] [place] [address] 03/02/2025 12:45 PM EDT Procedure visit [facility] NEUROLOG[facility]ECTOR [address] [facility] [address] [facility] [address] [place] [address] Samm Ledesma, SPECIALTY FOODS COOK [address] [facility] [address] [place] [address] 03/10/2025 12:30 PM EDT Appointment [facility] [place], [place] [id number] 03/10/2025 1:00 PM EDT Appointment [place] [address] Tacho Echavarria MD 1 [place], [place] [address]24[address]17 04/29/2025 9:15 AM EDT Appointment [facility] [place] [address] Batool Celis MD 1 [facility] [place] [address] 05/19/2025 2:15 PM EST Office Visit [facility] [address] [place] [address] [address] [place] [address] Sin Tran MD [address] [place] [address] 08/12/2025 10:40 AM EST Appointment [facility] Women's Wellness [place] [address] Matt Ulrich MD [address] [place] [address] documented as of this encounter Goals Goal [...] as of this encounter Care Teams Director Of Cloud Services Relationship Specialty [place] [address] [place] [address] PCP - General 06/21/10 Arlyn Schmidt MD [address] [place] [address] Consulting Physician Internal Medicine-Endocrinology, Diabetes & Metabolism 11/28/20 Tacho Echavarria MD 1 [place], [place] [phone] Internal Medicine-Medical Oncology 11/12/23 Matt Ulrich MD 1 [place] [address] Surgery-Surgical Oncology 12/04/23 Eze Brock Pastoral Care 12/13/23 Annette Walker MSW Hands And Dial Inspector 05/13/24 Batool Celis MD 1 [facility] CANCER CARE [place], [place] [address] Radiation Oncologist Radiology-Radiation Oncology 06/08/24 documented as of this encounter
--- OUTSIDE RECORDS SUMMARY | 2025-02-12 11:11 | XMS_ITS | Encounter Summary ---
Author [place] [address] Care Team Providers Care Microsoft Bi Architect Name Role Phone Chetna Cedeno MD Primary Care Provider Arlyn Schmidt MD Unavailable [phone] Tacho Echavarria MD Unavailable Matt Ulrich MD Unavailable [phone] Eze Brock Unavailable Cheryl Nair RN Unavailable [phone] Annette Walker POLICE LIAISON OFFICER Unavailable [phone] Batool Celis MD Unavailable [phone] Encounter Details Date Type Department Care Team (Late st Contact Info) Description 12/07/2024 Results Follow-Up HECTOR ENDOSCOPY [address] [facility] [place] [address] King Oliva MD [address] [place] [address] PATHOLOGY TISSUE REQUEST Social History Tobacco Use [...] from your doctor or pharmacy? Never 11/07/2023 [facility] Utilities Answer Date Recorded In [...] 5 07/07/2024 [facility] of Occupat ional Health - [...] any time in the past 12 m [facility], were you homeless or living in a custodial (including now)? No 11/07/2023 [facility] IP Transportation Answer D ate Recorded [...] 11:40 AM EDT Office Visit [facility] [address] [place] [address] [place] [address] [place] [address] 03/02/2025 12:45 PM EDT Procedure visit [facility] NEUROLOGY HECTOR [address] [facility] [address] [place] [address] Samm Ledesma, METAL FURRER [address] [address] [place] [address] 03/10/2025 12:30 PM EDT Appointment [place] [address] 03/10/2025 1:00 PM EDT Appointment [facility] Care Medical Oncology [place], [place] [phone] Tacho Echavarria MD [address] [place] [address] [id number] 04/29/2025 9:15 AM EDT Appointment [place] [address] Batool Celis MD [address] [place] [address] [place] [address] 05/19/2025 2:15 PM EST Office [facility] [address] [facility] [address] [place] [address] Sin Tran MD [facility] [place] [address] 08/12/2025 10:[address] [facility] Women's Wellness [place] [address] [facility] [place] [address] Matt Ulrich MD [address] [place] [address] [address] [place] [address] documented as of this encounter Goals [...] documented as of this encounter Care Teams Microsoft Bi Architect Relationship Specialty [place] [address] [place] [address] PCP - General 06/21/10 Arlyn Schmidt MD [address] [place] [address] Consulting Physician Internal Medicine-Endocrinology , Diabetes & Metabolism 11/28/20 Tacho Echavarria MD 1 [place] [address] Internal Medicine-Medical Oncology 11/12/23 Matt Ulrich MD 1 [place] [address] Surgery-Surgical Oncology 12/04/23 Eze Brock Pastoral Care 12/13/23 Cheryl Nair, RN Oncology Nurse Navigator 03/25/2412/13 Annette Walker MSW Lead Refiner 05/13/24 Batool Celis MD 1 [facility] [place] [address] Radiation Oncologist Radiology-Radiation Oncology 06/08/24 documented as of this encounter
--- OUTSIDE RECORDS SUMMARY | 2025-02-12 11:11 | XMS_ITS | Encounter Summary ---
Author Organization [place] [address] Care Team Providers Care Trail Maintenance Worker Name Role Phone Chetna Cedeno MD Primary Care Provider [phone] Arlyn Schmidt MD Unavailable [phone] Tacho Echavarria MD Unavailable [phone] Matt Ulrich MD Unavailable [phone] Eze Brock Unavailable Annette Walker Unavailable [phone] Batool Celis MD Unavailable [phone] Reason for Visit * Reason Comments Medication Refill Encounter Details Date Type Department Care Team (Late st Contact Info) Description 01/15/2025 Refill [facility] [address] [place] [address] [place] [address] [place] [address] Medication Refill Social History Tobacco [...] Never 11/07/2023 [facility] Utilities Answer Date Recorded In [...] Recorded PHQ-2 Total Score 5 07/07/2024 [facility] of Occupat ional Health - Occupational [...] in a penitentiary (including now)? No 11/07/2023 [facility] IP Transportation Answer D ate Recorded In [...] 11:40 AM EDT Office Visit [facility] [place] [address] [place] [address] [place] [address] [place] [address] 03/02/2025 12:45 PM EDT Procedure visit EDG NEUROLOGY [facility] [address] [facility] [address] [place] [address] Samm Ledesma, BIOCHEMISTRY TECHNICIAN [address] [facility] [address] [place] [address] 03/10/2025 12:30 PM EDT Appointment [place] [address] 03/10/2025 1:00 PM EDT Appointment [place] [address] Tacho Echavarria MD [address] [place] [address] 04/29/2025 9:15 AM EDT Appointment [facility] RAD ONC [place] [id number] Batool Celis MD [address] [facility] [place] [address] 05/19/2025 2:15 PM EST Office Visit [facility] [address] [place] [address] [address] [facility] [address] [address] Sin Tran MD [address] [place] [address] [place] [address] 08/12/2025 10:40 AM EST Appointment [facility] Women's Wellness [facility] Emilee Solomon [facility] Matt Ulrich MD 20 [facility] 254 [place] [address] documented as of this encounter Goals Goal [...] documented as of this encounter Care Teams Trail Maintenance Worker Relationship Specialty [place] [address] [place] [address] PCP - General 06/21/10 Arlyn Schmidt MD [address] [place], [place] [address] Consulting Physician Internal Medicine-Endocrinology, Diabetes & Metabolism 11/28/20 Tacho Echavarria MD 1 [place] [address] Internal Medicine-Medical Oncology 11/12/23 Matt Ulrich MD 1 [place], [place] 13[address] Surgery-Surgical Oncology 12/04/23 Eze Brock Pastoral Care 12/13/23 Annette Walker, WAREHOUSE EXAMINER Sales Assistant Displays 05/13/24 Batool Celis MD 1 [facility] [place] [address] Radiation Oncologist Radiology-Radiation Oncology 06/08/24 documented as of this encounter
--- OUTSIDE RECORDS SUMMARY | 2025-02-12 11:11 | XMS_ITS | Encounter Summary ---
Author Organization [place] [address] Care Team Providers Care Absorber Operator Name Role Phone Chetna Cedeno MD Primary Care Provider [phone] Arlyn Schmidt MD Unavailable [phone] Tacho Echavarria MD Unavailable [phone] Matt Ulrich MD Unavailable [phone] Eze Brock Unavailable Annette Walker Unavailable [phone] Batool Celis MD Unavailable [phone] Reason for Visit * Reason Onset Date Comments Other 02/01/2025 Currently inpati ent at [facility] Encounter Details Date Type Department Care Team (Late st Contact Info) Description 02/01/2025 Telephone Cancer Care Medical Oncology [place], [place] 600[address]17 Tacho Echavarria MD [address] [place] [address] [id number] Other (Currently inpatient at [facility] ) Social History Tobacco Use Types Packs/Day [...] doctor or pharmacy? Never 11/07/2023 [facility] Utilities Answer Date Recorded In the [...] often do you attend chur ch or yarsani services? 1 to 4 times per year 11/07/2023 Do you belong to any clubs o r organizations such as taoism groups, unions, fraternal or athletic groups, or [...] in a mcc (including now)? No 11/07/2023 [facility] IP Transportation Answer D ate Recorded In [...] Assessment Author No 12/06/2022 2:08 PM Macarena Hesnon CCMA * Is the person blind or [...] Telephone Encounter - Rosana Gupta RN - 02/01/2025 1:10 PM EDT Noted, thank you * Telephone Encounter - Sendy Waddell NA - 02/01/2025 12:28 PM EDT Reason for call: Patient called to let know she was admitted to [facility] on Saturday and is still there.Has blood clot in lung and potassium was 2.5 Preferred call back number: [phone] documented in this encounter Plan of Treatment Upcoming Encounters Date Type Department Care Team (Late st Contact Info) Description 03/02/2025 11:40 AM EDT Office Visit [facility] [address] [place] [address] [place] [address] [place] [address] 03/02/2025 12:45 PM EDT Procedure visit [facility] NEUROLOGY HECTOR [address] [facility] [address] [place] [address] Samm Ledesma, SUPERVISOR PAINTING [address] [facility] [address] [place] [address] 03/10/2025 12:30 PM EDT Appointment [place] [address] 03/10/2025 1:00 PM EDT Appointment [facility] [place] [address] Tacho Echavarria MD [address] [place] [address] 04/29/2025 9:15 AM EDT Appointment [place] [address] Batool Celis MD [address] [place] [address] [place] [address] 05/19/2025 2:15 PM EST Office Visit [address] [address] Sin Tran MD [address] [place] [address] 08/12/2025 10:40 AM EST Appointment [facility] Women's Wellness [facility] [place] [address] Matt Ulrich MD [address] [place] [address] 254 [place] [address] documented as of this encounter Goals Goal [...] documented as of this encounter Care Teams Absorber Operator Relationship Specialty Start [place] [address] [place] [address] PCP - General 06/21/10 Arlyn Schmidt MD [address] [place] [address] Consulting Physician Internal Medicine-Endocrinology, Diabetes & Metabolism 11/28/20 Tacho Echavarria MD 1 [place] [id number] Internal Medicine-Medical Oncology 11/12/23 Matt Ulrich MD 1 [place] [address] Surgery-Surgical Oncology 12/04/23 Eze Brock Pastoral Care 12/13/23 Annette Walker MSW Cathode Ray Tube Assembler 05/13/24 Batool Celis MD 1 [facility] [address] Radiation Oncologist Radiology-Radiation Oncology 06/08/24 documented as of this encounter
--- OUTSIDE RECORDS SUMMARY | 2025-02-12 11:11 | XMS_ITS | Encounter Summary ---
Author Organization [place] [address] Care Team Providers Care Vice President Of Human Resources Name Role Phone Chetna Cedeno MD Primary Care Provider Arlyn Schmidt MD Unavailable [phone] Tacho Echavarria MD Unavailable Matt Ulrich MD Unavailable [phone] Eze Brock Unavailable Cheryl Nair RN Unavailable [phone] Sanam Murray PRESIDENT AND CHIEF COMMERCIAL OFFICER Unavailable Unavailable Annette Walker PRESIDENT AND CHIEF COMMERCIAL OFFICER Unavailable [phone] Batool Celis MD Unavailable [phone] Encounter Details Date Type Department Care Team (Late st Contact Info) Description 07/06/2024 Orders Only [facility] [address] [place] [place] [address] Shilpa Tan MD [address] [place] [phone] Social History Tobacco Use Types Packs/Day Years [...] any time in the past 12 m [facility], were you homeless or living in a senior care (including now)? No 11/07/2023 [facility] IP Transportation Answer D [...] of Assessment Author 0 07/06/2024 4:00 PM Kalya Lee RN * Question Answer Date of [...] 07/06/2024 4:32 PM Kayla Lee RN * [place] Suicide Severity Rating Scale (Q shift for [...] 11:40 AM EDT Office Visit [facility] [address] [place] [address] [place] [address] [address] [place] [address] 03/02/2025 12:45 PM EDT Procedure visit [facility] [address] [place], [place] [id number] Samm Ledesma, FLOWER GROWER [address] [place], [place] [id number] 03/10/2025 12:30 PM EDT Appointment [facility] [address] 03/10/2025 1:00 PM EDT Appointment [facility] [place] [address] Tacho Echavarria MD [address] [place] [id number] 04/29/2025 9:15 AM EDT Appointment [facility] [place] [place] [address] Batool Celis MD [address] [place] [address] [place] [address] 05/19/2025 2:15 PM EST Office Visit [address] [address] Sin Tran MD [address] [place] [address] 08/12/2025 10:40 AM EST Appointment [facility] Women's Wellness [facility] [place] [id number] Matt Ulrich MD [address] [place] [address] documented as of this encounter Goals Goal Patient Goal Type Associated Problems Recent Progress Patient-Stated? Author Blood Pressure < 140/90 Blood Pressure 121/77(02/04 2:04 PM EDT) No Chetna Cedeno MD Breast [facility] Breast Health On track(2024 11:27 AM EDT) No Jasmin Porter, RN Note: Patient acknowledges understanding of new diagnosis, plan of care, available resources and how to contact Nurse Navigator with any future questions or concerns. Breast [facility] Breast Health Not on track(2024 [...] EST) 07/06/2024 12:5 1 PM EST Narrative [facility] - 09/24/2024 2:57 PM EDT Requesting Provider: MATT Womack Specimen = [id number] Shilpa Tan MD PATHOLOGY ORDERABLES Final R esult [facility] [address] [place] [address] documented in this encounter Visit Diagnoses Not on filedocumented in this encounter Additional Health Concerns Infection Onset Date Last Indicated Resolved Time COVID-19 09/04/2024 09/04/2024 09/24/2024 10:1 2 PM EDT Assessment Noted Time PHQ-9 Depression Total Score: 12 03/16/ 024 12:00 PM EDT documented as of this encounter Care Teams Vice President Of Human Resources Relationship Specialty [place] [address] [place] [address] PCP - General 06/21/10 Arlyn Schmidt MD [address] [place], [place] [address] Consulting Physician Internal Medicine-Endocrinology , Diabetes & Metabolism 11/28/20 Tacho Echavarria MD 1 [place] [address] Internal Medicine-Medical Oncology 11/12/23 Matt Ulrich MD 1 [place], [place] [address] Surgery-Surgical Oncology 12/04/23 Eze Brock Pastoral Care 12/13/23 Cheryl Nair, RN Oncology Nurse Navigator 03/25/2412/13 Sanam Murray MSW Supervisor [employer]products 04/10/24 07/30/24 Annette Walker MSW Supervisor Byproducts 05/13/24 Batool Celis MD 1 [facility] [place] [address] Radiation Oncologist Radiology-Radiation Oncology 06/08/24 documented as of this encounter
--- OUTSIDE RECORDS SUMMARY | 2025-02-12 11:11 | XMS_ITS | Encounter Summary ---
Author Organization [place] [address] Care Team Providers Care Respiratory Manager Name Role Phone Chetna Cedeno MD Primary Care Provider [phone] Arlyn Schmidt MD Unavailable [phone] Tacho Echavarria MD Unavailable [phone] Matt Ulrich MD Unavailable [phone] Eze Brock Unavailable Cheryl Nair RN Unavailable [phone] Annette Walker SCALE AGENT Unavailable [phone] Batool Celis MD Unavailable [phone] Encounter Details Date Type Department Care Team (Late st Contact Info) Description 10/26/2024 [facility] [place] [address] [facility] [address] [place] [address] Shaunna Workman PT Social History [...] 11/07/2023 [facility] Utilities Answer Date Recorded In the past [...] Score 5 07/07/2024 [facility] Essie of Occupat ional Health - Occupational Stress [...] a senior living (including now)? No 11/07/2023 [facility] IP Transportation [...] AM EDT Office Visit [facility] [address] [place] [address] [place] [address] [place] [address] 03/02/2025 12:45 PM EDT Procedure visit [facility] [address] [place] [address] Samm Ledesma, DEPUTY SHERIFF BAILIFF [address] [place] [address] 03/10/2025 12:30 PM EDT Appointment [facility] [place] [address] 03/10/2025 1:00 PM EDT Appointment [facility] [place] [address] Tacho Echavarria MD [address] [place] [address] 04/29/2025 9:15 AM EDT Appointment [facility] [place] [address] Batool Celis MD [address] [place] [address] CANCER CARE [place], [place] [phone] 05/19/2025 2:15 PM EST Office Visit [place] [address] [place] [address] Sin Tran MD [address] [place] [address] 08/12/2025 10:40 AM EST [facility]ointment [facility] [place] One [facility] [place] [address] Matt Ulrich MD [address] [place] [address] MUSA Zari [facility] [place] [address] documented as of this encounter Goals [...] documented as of this encounter Care Teams Respiratory Manager Relationship Specialty [place] [address] [facility] [address] [place] [id number] PCP - General 06/21/10 Arlyn Schmidt MD [address] [place], [place] [id number] Consulting Physician Internal Medicine-Endocrinology , Diabetes & Metabolism 11/28/20 Tacho Echavarria MD 1 [place], [place] [phone] Internal Medicine-Medical Oncology 11/12/23 Matt Ulrich MD 1 [place] [id number] Surgery-Surgical Oncology 12/04/23 Eze Brock Pastoral Care 12/13/23 Cheryl Nair, RN Oncology Nurse Navigator 03/25/2412/13 Annette Walker, ARACELI Gristmill Operator 05/13/24 Batool Celis MD 1 [place], [place] [phone] Radiation Oncologist Radiology-Radiation Oncology 06/08/24 documented as of this encounter
--- OUTSIDE RECORDS SUMMARY | 2025-02-12 11:11 | XMS_ITS | Clinical Summary ---
Author Organization [facility] Address [address] [place] [address] Phone Care Team Providers Care Bark Spudder Name Role Phone Chetna Cedeno MD Primary Care Provider [phone] Allergies Active Allergy Reactions Criticality Noted Date [...] EDT - 01/02/2025 7:27 PM EDT Emergency [facility] Emergency Department [address] [place] [address] Dallin Espinoza MD Heat exhaustion, [...] (ABNORMAL) BAMP (Na,K,Cl,CO2,Glu,BUN,Creat,Ca) (01/02/2025 5:13 PM EDT) [facility] BLD UREA NITROGEN 16 8 - 26 mg/dL CHEMISTRY [facility]YER SODIUM 140 135 - 145 mmol/L CHEMISTRY [facility] POTASSIUM 3.2(L) 3.6 - 5.1 mmol/L CHEMISTR[facility] CHLORIDE 107 98 - 111 mmol/L CHEMISTRY [facility] CO2 20(L) 21 - 31 mmol/L CHEMISTRY [facility] GLUCOSE, RANDOM 89 70 - 99 mg/dL CHEMISTRY [facility] CREATININE 1.06 0.60 - 1.20 mg/dL CHEMISTR[facility] ANION GAP 13 4 - 16 mmol/L CHEMISTRY [facility] CALCIUM 9.0 8.5 - 10.4 mg/dL CHEMISTRY [facility] ESTIMATED GFR 61 >59 mL/min/1.7 3 m2 CHEMISTRY [facility]ER Comment: Estimated GFR was calculated using the CKD-EPI cr (2020) equation refit without race. The equation is recommended by the National Kidney Foundation - [place] Society of Nephrology Task Force. Tested at [place] [id number] Whole Blood 01/02/2025 5:13 PM EDT 01/02/2025 5:25 PM EDT Dallin Espinoza MD LAB BLOOD ORDERABLES Final Result [facility] [address] [place] [address] [place] [address] * (ABNORMAL) CBC w/ Diff (01/02/2025 5:13 PM EDT) [facility] WBC 7.1 3.6 - 10.5 THOU/[facility] CHEMISTRY SAWYER RBC 3.75(L) 3.80 - 5.20 MIL/mcL CHEMISTRY [facility] HEMOGLOBIN 11.2(L) 12.0 - 15.2 g/dL CHEMISTRY [facility] HEMATOCRIT 33.6(L) 36 - 46 % CHEMISTRY [facility] MCV 89.6 82 - 97 fL CHEMISTRY SAW[facility]ER MCH 30.0 27 - 33 pg CHEMISTRY SAWYER MCHC 33.5 32 - 36 g/dL CHEMISTRY SAWYER RDW 16.0 12.3 - 17.0 % CHEMISTRY SA[facility]ER PLATELET 206 140 - 375 THOU/mcL CHEMISTRY SAWYER MPV 6.9(L) 7.0 - 11.5 fL CHEMISTRY [facility]WYER ABS. NEUTROPHIL 3.60 1.80 - 7.70 THOU/mcL CHEMISTRY [facility]WYER ABS LYMPHS 3.00 1.00 - 4.00 THOU/mcL CHEMISTRY SAWYER ABS MONOS 0.30 0.20 - 0.90 THOU/mcL CHEMISTRY SAWYER ABS EOS 0.10 0.03 - 0.45 THOU/mcL CHEMISTRY SAWYER ABS BASOS 0.10 0.00 - 0.20 THOU/mcL CHEMISTRY SAWYER SEGS 51 % CHEMISTRY [facility] LYMPHOCYTES 43 % CHEMISTR Y NORTH MONOCYTES 4 % CHEMISTRY SAWYER EOSINOPHIL 1 % CHEMISTRY SAWYER BASOPHILS 1 % CHEMISTRY SAWYER Comment:Tested at [facility] [address] [facility] [address] Whole Blood 01/02/2025 5:13 PM EDT 01/02/2025 5:25 PM EDT us Dallin Espinoza MD LAB BLOOD ORDERABLES Final Result [facility] [address] [place] [address] [facility] [address] [place] [address] * ECG 12 lead (01/02/2025 4:37 PM [...] QTcF 417 ms TH TRACEMASTER QRS Horizontal Chromo -19 deg TH TRACEMASTER QRS AXIS 16 deg TH TRACEMASTER I-40 Horizontal Chromo 46 deg TH TRACEMASTER I-40 FRONT AXIS -17 deg TH TRACEMASTER T-40 Horizontal Chromo -50 deg TH TRACEMASTER T-40 Front Chromo 51 deg TH TRACEMASTER T Horizontal Chromo 52 deg TH TRACEMASTER T WAVE AXIS 16 deg TH TRACEMASTER S-T Horizontal Chromo 60 deg TH TRACEMASTER S-T Front Chromo 24 deg TH TRACEMASTER ECG IMPRESSION - BORDERLINE ECG - TH TRACEMASTER ECG IMPRESSION SR-Sinus rhythm-normal P axis, V-rate 50-99 TH TRACEMASTER ECG IMPRESSION LVHVP-Probable left ventricular hypertrophy-mul tiple LVH criteria TH TRACEMASTER ECGGUID [id number] TH TRACEMASTER 01/02/2025 4:37 PM EDT us Dallin Espinoza MD ECG ORDERABLES Final Resu lt TH TRACEMASTER from Last 3 Months Insurance [facility] MEDICAID Care Teams Bark Spudder Relationship Specialty Start Date End Date Chetna Cedeno MD [facility] [address] [place] [address] PCP - General Family Medicine 01/02/25
--- OUTSIDE RECORDS SUMMARY | 2025-02-12 11:11 | XMS_ITS | Clinical Summary ---
Author Organization [facility] Address [address] [place] [address] Phone Care Team Providers Care Automobile Assembler Name Role Phone Outside, Provider Unavailable [phone] Conditions or Problems No information available. Medications No information available. Medications Administered No information available. Allergies, Adverse Reactions, Alerts No information available. Results No information available. Plan of Care No information available. Procedures No information available. Vital Signs No information available. Immunizations No information available. Advance Directives No information available.
--- OUTSIDE RECORDS SUMMARY | 2025-02-12 11:11 | XMS_ITS | Encounter Summary ---
Author Organization [place] [address] Care Team Providers Care Agricultural Technical Officer Name Role Phone Chetna Cedeno MD Primary Care Provider [phone] Arlyn Schmidt MD Unavailable [phone] Tacho Echavarria MD Unavailable [phone] Matt Ulrich MD Unavailable [phone] Eze Brock Unavailable Cheryl Nair RN Unavailable [phone] Annette Walker AREA FIELD MANAGER Unavailable [phone] Batool Celis MD Unavailable [phone] Encounter Details Date Type Department Care Team (Late st Contact Info) Description 10/27/2024 Orders Only [facility] Physical Therapy [place] [address] [facility] [address] [place] [address] Shaunna Workman PT Social History [...] Total Score 5 07/07/2024 [facility] [place] of Occupat ional Health - Occupational Stress [...] any time in the past 12 m [facility], were you homeless or living in a residential (including now)? No 11/07/2023 [facility] IP Transportation Answer D ate Recorded In [...] 11:40 AM EDT Office Visit [facility] [address] [place] [address] [place] [address] [place] [address] 03/02/2025 12:45 PM EDT Procedure visit [facility] [address] [place] [address] Samm Ledesma, LEYLA [address] [facility] [facility] [address] [place] [address] 03/10/2025 12:30 PM EDT Appointment [facility] [address] 03/10/2025 1:00 PM EDT Appointment [facility] Medical Oncology [place], [place] [address] Tacho Echavarria MD [address] [place] [address] 04/29/2025 9:15 AM EDT Appointment [facility] [place] [address] Batool Celis MD [address] [place] [address] [place] [address] 05/19/2025 2:15 PM EST Office Visit [facility] Sarah [address] [facility] [address] [place] [address] Sin Tran MD [address] [facility] [place] [address] 08/12/2025 10:40 AM EST Appointment [facility] Women's Wellness [facility] [place] [address] Matt Ulrich MD [address] [place] [address] [address] [place] [address] documented as of this encounter Goals Goal Patient Goal Type Associated Problems Recent Progress Patient-Stated? Author Blood Pressure < 140/90 Blood Pressure 121/77(02/04 2:04 PM EDT) No Chetna Cedeno MD Breast [facility] Breast Health On track(2024 11:27 [...] documented as of this encounter Care Teams Agricultural Technical Officer Relationship Specialty [place] [address] [place] [address] PCP - General 06/21/10 Arlyn Schmidt MD [address] [place], [place] [address] Consulting Physician Internal Medicine-Endocrinology , Diabetes & Metabolism 11/28/20 Tacho Echavarria MD 1 [place], [place] [address] Internal Medicine-Medical Oncology 11/12/23 Matt Ulrich MD 1 [place], [place] [address] Surgery-Surgical Oncology 12/04/23 Eze Brock Pastoral Care 12/13/23 Cheryl Nair, RN Oncology Nurse Navigator 03/25/2412/13 Annette Walker, ARACELI Polymerization Kettle Operator 05/13/24 Batool Celis MD 1 [facility] [place], [place] [phone] Radiation Oncologist Radiology-Radiation Oncology 06/08/24 documented as of this encounter
--- OUTSIDE RECORDS SUMMARY | 2025-02-12 11:11 | XMS_ITS | Clinical Summary ---
Author Organization SHAUNNA [facility]LESS[facility] OD Address [facility] [place] [address] Phone Care Team Providers Care Office Machines Sales Representative Name Role Phone Chetna Cedeno MD Primary Care Provider [phone] Arlyn Schmidt MD Unavailable [phone] Tacho Echavarria MD Unavailable [phone] Matt Ulrich MD Unavailable [phone] Eze Brock Unavailable Annette Walker SECURITY SME Unavailable [phone] Batool Celis MD Unavailable [phone] Allergies Active Allergy Reactions Criticality Noted Date [...] (AEROCHAMBER MV) Mis Spacer 1 Each by [facility].(Non-Drug; Combo Route) route as [...] Active fluticasone propionate (FLONASE) 50 mcg/actuation Nasl [place], Suspension 1 [place] by Nasal route daily. 1 Each 024 [...] 12/04/19 25 3:46 PM EDT 025 Active abemaciclib (VERZENIO) 100 mg Oral TabletIndicatio ns: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),Chemother apy-induced nausea Take 1 Tablet by mouth 2 times daily. 56 Tablet 4 02/05/20 25 4:14 PM EDT 025 Active rOPINIRole (REQUIP) 0.25 [...] 10 mg by mouth once. 025 Active oxybutynin (DITROPAN-XL) 5 mg Oral [...] PORT ACCESS. 30 g 1 025 Active atogepant 60 mg Oral Tablet Take 1 Tablet by mouth daily. 30 Tablet 5 02/05/20 25 4:14 PM EDT 025 Active rimegepant (NURTEC ODT) 75 mg Oral Tablet, Rapid Dissolve Dissolve 1 tablet in mouth at migraine onset (Max dose 75 mg/24 hours) 8 Tablet 5 02/05/20 25 4:14 PM EDT 025 Active exemestane (AROMASIN) 25 mg Oral TabletIndicatio ns:Invasive ductal carcinoma of breast, female, right (HCC),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),Right breast cancer with T3 tumor, >5 cm in greatest dimension (HCC) Take 1 Tablet by mouth daily. 90 Tablet 025 Active lidocaine-prilo shauna (EMLA) Top CreamIndication s:Invasive ductal carcinoma of breast, female, right (HCC) Apply dime size amount to port area 30 minutes prior to port access. 30 g 1 025 2024 Discontinued potassium chloride (KLOR-CON M) 20 mEq Oral Tab Sust.Rel. Particle/Suzanne l Take 2 Tablets by mouth daily for 2 days. Take with meals 4 Tablet 025 2024 Active Problems Patient Care Coordination No te Formatting of this note migh t be different from the original. [facility] - Sin Tran MD Controlled [...] or Functional capacity documented (EVERY VISIT)01/03/2022 Pharmacy: [address] [phone] [facility] [phone] AIS POA: 02/10/2025 josh as expected #[id number] Josh 08-05-2018 adm Josh 08-14- adm UDS 2-07-26 adm Care gap audit completed by Medina White RN on 01/01/2022. 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 uses PowWow Inccort as directed by me. Asthma 12/20/2010 03/26/2022 Encounters * This document contains information received from the source organization and may not represent a complete record from that organization. Date Type Department Care Team Description 02/12/2025 Telephone [facility] [place] [address] Eze Rowland MD Follow-up (Updated form, loan deferment form ) 02/10/2025 10:30 AM EDT Office Visit [address] [address] Sin Tran MD Chronic pain syndrome (Primary Dx); Post laminectomy syndrome 02/10/2025 Patient Outreach [place] [address] Tacho Echavarria MD Oncology Nurse Navigation 02/10/2025 Orders Only [facility] [place] [phone] Shilpa Cline RN 02/08/2025 Refill [facility] [place] [phone] Tacho Echavarria MD Medication Refill 02/05/2025 Telephone [facility] [place] [phone] Tacho Echavarria MD Symptom Call (lightheaded / headache ) 02/05/2025 Telephone [facility] [place] [address] Narda Vickers, Clerical Staff Integrative Oncology Referral 02/05/2025 Telephone [facility] [address] [address] [place] [address] Chetna Cedeno MD Other (BW) 02/04/2025 2:03 PM EDT - 02/04/2025 11:59 PM EDT Hospital Encounter [facility] [place] [address] Tacho Echavarria MD Invasive ductal carcinoma of breast, female, right (HCC) (Primary Dx); Chemotherapy follow-up examination; Encounter for monitoring aromatase inhibitor therapy; Vitamin D deficiency; Port-A-Cath in place; Reactive depression Discharge Disposition: Home or Self Care 02/04/2025 1:48 PM EDT - 02/04/2025 2:02 PM EDT Hospital Encounter [place] [address] Tacho Echavarria MD Invasive ductal carcinoma of breast, female, right (HCC) (Primary Dx) Discharge Disposition: Home or Self Care 02/04/2025 11:00 AM EDT - 02/04/2025 1:47 PM EDT Hospital Encounter [facility] [place] [address] Tacho Echavarria MD Mosko, Mallory, PA-C Invasive ductal carcinoma of breast, female, right (HCC) (Primary Dx); Encounter for monitoring aromatase inhibitor therapy; Encounter for screening mammogram for breast cancer Discharge Disposition: Home or Self Care 02/04/2025 Social Work [facility] Cancer Care [facility] [place] [address] Annette Walker MSW 02/04/[address] [facility] [place] [address] Aliya Harden, Clerical Staff Appointment Needed 02/03/[address] [address] Sin Tran MD Other (Pain pump meds) 02/03/2025 Specialty Pharmacy [facility] [address] [place] [address] Anisa Lozoya CPhT Pharmacy Oncology Management (Abemaciclib) 02/02/2025 11:20 AM EDT Telemedicine [facility] [address] [place] [address] Samm Ledesma APRN Chronic migraine without aura, intractable, with status migrainosus (Primary Dx); Paresthesia; Invasive ductal carcinoma of breast, female, right (HCC); Pituitary lesion; Radicular syndrome of left leg Discharge Disposition: Home or Self Care 02/02/2025 Specialty Pharmacy [facility] [address] [place] [address] Kevin Chacon, PharmD Pharmacy Migraine Medication Management (Nurtec) 02/01/2025 Social Work [facility] Cancer Care [facility] [address] [place] [phone] Sonny Fleming, [facility] 02/01/2025 Telephone [facility] [place] [address] Tacho Echavarria MD Other (Currently inpatient at [facility] ) 01/29/2025 Telephone [facility] [place] [address] Tacho Echavarria MD Symptom Call (Diarrhea, body aches, vomiting) 01/29/2025 Social Work [facility] Cancer Care [facility] [address] [place] [facility] Sonny Fleming, [facility] 01/29/2025 Patient Outreach [facility] [place] [address] Shilpa Cline, casting cleaner Nurse Navigation 01/28/2025 Orders Only [facility] [place] [address] Tacho Echavarria MD Invasive ductal carcinoma of breast, female, right (HCC) (Primary Dx) 01/28/2025 Telephone [facility] [place] [address] Tacho Echavarria MD Patient Question (question about test result ) 01/28/2025 Specialty Pharmacy [facility] [address] [place] [address] Sheridan Arellano, [facility] Migraine Medication Management (Qulipta) 01/27/2025 Results Follow-Up [facility] [address] [place] [address] Benito Snell, PharmD PHARMACOGENOMIC PANEL 01/21/2025 Orders Only [facility] [address] [place] [address] Osvaldo Johnson, Clerical Staff 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) (Primary Dx) 01/18/2025 Telephone [facility] [place] [address] Tacho Echavarria MD 01/15/2025 1:30 PM EDT - 01/15/2025 11:59 PM EDT Hospital Encounter [facility] [place] [address] Tacho Echavarria MD Argent, Lillian L, APRN Hot flashes related to aromatase inhibitor therapy (Primary Dx); Vitamin D deficiency Discharge Disposition: Home or Self Care 01/15/2025 1:15 PM EDT - 01/15/2025 1:29 PM EDT Hospital Encounter [place] [address] Tacho Echavarria MD Invasive ductal carcinoma of breast, female, right (HCC) (Primary Dx); Cold sweat; Lightheaded; Shakiness Discharge Disposition: Home or Self Care 01/15/2025 11:55 AM EDT - 01/15/2025 1:14 PM EDT Hospital Encounter [facility] Physical Therapy [address] [place] [address] Kylha Lawler, ALECIA Discharge Disposition: Home or Self Care 01/15/2025 Refill [facility] [address] [place] [address] Chetna Cedeno MD Medication Refill 01/15/2025 Refill [facility] [address] [place] [address] Samm Ledesma APRN Medication Refill 01/15/2025 Refill [facility] [place] [address] Tacho Echavarria MD Medication Refill 01/15/2025 Plan of Care Documentation [facility] Physical Therapy [address] [place] [phone] 01/15/2025 Plan of Care Documentation [facility] Physical Therapy [address] [place] [address] 01/15/2025 Telephone [facility] [place] [address] Tacho Echavarria MD Symptom Call (shakiness, light headed, cold chills, and breaking out in sweats ) 01/15/2025 Specialty Pharmacy [facility] [address] [place] [phone] Annamarie Mark sheet metal engineer Pharmacy Migraine Medication Management (Ubrelvy) 01/14/2025 Refill [facility] [place] [address] Tacho Echavarria MD Medication Refill 01/13/2025 2:56 PM EDT - 01/13/2025 11:59 PM EDT Hospital Encounter [facility] Physical Therapy [address] [place] [address] Shaunna Workman, ALECIA Discharge Disposition: Home or Self Care 01/13/2025 Plan of Care Documentation [facility] Physical Therapy [address] [place] [phone] 01/11/2025 Orders Only [facility] [place] [address] Tacho Echavarria MD 01/07/2025 Specialty Pharmacy [facility] [address] [place] [address] Anisa Lozoya CPhT Pharmacy Oncology Management (Abemaciclib) 01/06/2025 1:14 PM EDT - 01/06/2025 11:59 PM EDT Hospital Encounter [facility] [place] [address] Tacho Echavarria MD Invasive ductal [...] EDT Hospital Encounter [facility] [place] [address] Tacho Echavarria MD Invasive ductal carcinoma of breast, female, right (HCC) (Primary Dx) Discharge Disposition: Home or Self Care 01/01/2025 Patient Outreach [facility] [address] [place] [address] Samm Ledesma APRN Botox Injection (~03/02/2025 ) 12/31/2024 Specialty Pharmacy [facility] [address] [place] [address] Annamarie Mark [facility] Pharm[facility] Migraine Medication Management (Qulipta) 12/30/[address] [facility] [place] [address] Sonny Fleming, ARACELI 12/29/[address] [facility] [place] [address] Annette Walker, SECURITY SME 12/29/2024 Orders Only [facility] [address] [place] [address] Blake Antoine, [facility] Restless leg syndrome; Essential hypertension, benign 12/29/2024 Refill [facility] [address] [place] [address] [place] [address] Munir Hilton MD Medication Refill 12/29/2024 [facility]ill [facility] [address] [address] [place] [phone] Chetna Cedeno MD Medication Refill 12/29/2024 Telephone [facility] [place] [phone] Tacho Echavarria MD 12/28/2024 Orders Only [facility] [place] [phone] Tacho Echavarria MD 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) (Primary Dx) 12/25/2024 Specialty Pharmacy [facility] [address] [place] [address] Hilary Rivas, [facility] Pharmacy Oncology Management; Pharmacy Reassessment (abemaciclib (Verzenio)) 12/25/2024 Telephone [facility] Women's Wellness [facility] [place] [phone] Jasmin Porter RN 12/23/2024 Specialty Pharmacy [facility] [address] [place] [address] Anisa Lozoya [facility] Migraine Medication Management (Qulipta pa renewal) 12/23/2024 Telephone [facility] [place] [phone] Tacho Echavarria MD 12/23/2024 Telephone [facility] [address] [place], [place] [phone] Tacho Echavarria MD Follow-up 12/14/2024 11:09 AM EDT - 12/14/2024 11:59 PM EDT Hospital Encounter [facility] Physical Therapy [address] [place] [address] Kylah Lawler, PT Discharge Disposition: Home or Self Care 12/11/2024 Telephone [facility] Physical Therapy [place] [address] [facility] [address] [place] [address] Romana Bowman PTA Cancelled Appointment (Car in shop will not get done till 5 ) 12/10/2024 2:46 PM EDT - 12/10/2024 11:59 PM EDT Hospital Encounter [place] [address] Tacho Echavarria MD 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) (Primary Dx); Chemotherapy-induced nausea; Anxiety about treatment; Acquired lymphedema; Encounter for monitoring aromatase inhibitor therapy Discharge Disposition: Home or Self Care 12/10/2024 2:30 PM EDT - 12/10/2024 2:45 PM EDT Hospital Encounter [place] [address] Tacho Echavarria MD Invasive ductal carcinoma of breast, female, right (HCC) (Primary Dx); 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) Discharge Disposition: Home or Self Care 12/10/2024 Specialty Pharmacy [facility] [address] [place] [phone] Batool Smith, [facility] Pharmacy Oncology Management (Verzenio 100mg) 12/10/2024 Social Work [facility] Cancer Care [facility] [address] [place] [phone] Annette Walker MSW 12/09/2024 Specialty Pharmacy [facility] [address] [place] [phone] Annamarie Mark, [facility] Pharmacy Migraine Medication Management (Qulipta) 12/08/2024 2:35 PM EDT Procedure visit [facility] [address] [place] [address] Samm Ledesma APRN Chronic migraine without aura, intractable, with status migrainosus (Primary Dx) Discharge Disposition: Home or Self Care 12/08/2024 7:59 AM EDT - 12/08/2024 11:59 PM EDT Hospital Encounter [facility] Physical Therapy [place] [phone] [facility] [address] [place] [address] Shaunna Workman, PT Discharge Disposition: Home or Self Care 12/08/2024 Specialty Pharmacy [facility] [address] [place] [address] Ras Thomas [facility] Pharmacy Migraine Medication Management (Ubrelvy) 12/07/2024 Results Follow-Up [facility] [address] [place] [address] King Oliva MD PATHOLOGY TISSUE REQUEST 12/04/[address] [facility] [place] [address] Annette Walker, [facility] 12/04/2024 Travel 12/03/2024 9:00 AM EDT - 12/03/2024 11:59 PM EDT Hospital Encounter [facility] Physical Therapy [place] [address] [facility] [address] [facility] [address] [address] [place] [address] Shaunna Workman, PT Discharge Disposition: Home or Self Care 12/03/2024 8:00 AM EDT - 12/03/2024 8:59 AM EDT Hospital Encounter [facility] Physical Therapy [place] [address] [facility] [address] [place] [address] Romana Bowman, STEFANIE Discharge Disposition: Home or Self Care 12/03/2024 Social Work [facility] [place] [address] Sonny Fleming, [facility] 12/02/2024 9:36 AM EDT - 12/02/2024 11:59 PM EDT Hospital Encounter [facility] Physical Therapy [place] [address] [facility] [address] [address] [place] [address] Shaunna Workman, PT Discharge Disposition: Home or Self Care 12/02/2024 Orders Only [facility] [place] [address] Tacho Echavarria MD 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) (Primary Dx) 12/01/2024 10:51 AM EDT Anesthesia Event [facility] [address] [place] [address] [address] Aliya Friedman MD Record, Batool Velazquez, RESTAURANT WORKER 12/01/2024 9:22 AM EDT - 12/01/2024 11:59 PM EDT Hospital Encounter [facility] [address] [place] [address] King Oliva MD Judge, Lisa M, MD O N ever, Shaylee Velazquez, GEOMAGNETICIAN Nausea and vomiting, unspecified vomiting type; Gastroesophageal reflux disease without esophagitis Discharge Disposition: Home or Self Care 12/01/2024 Refill [place] [address] Tacho Echavarria MD Medication Refill 12/01/2024 Specialty Pharmacy [facility] [address] [place] [address] Annette Renee, [facility] Oncology Management (Abemaciclib) 11/30/2024 Nurse Triage [facility] Nurse Now [address] [place] [address] Sandy Gonzalez RN 11/26/2024 8:00 AM EDT - 11/26/2024 11:59 PM EDT Hospital Encounter [facility] Physical Therapy [address] [place] [phone] Shaunna Workman, PT Discharge Disposition: Home or Self Care 11/25/2024 Social Work [facility] Cancer Care [facility] [place] [address] Sonny Fleming, ARACELI 11/23/2024 12:12 PM EDT - 11/23/2024 11:59 PM EDT Hospital Encounter [facility] Physical Therapy [address] [place] [address] Shaunna Workman, PT Discharge Disposition: Home or Self Care 11/23/2024 12:00 PM EDT - 11/23/2024 12:11 PM EDT Hospital Encounter [facility] Physical Therapy [address] [place] [address] Kylah Lawler, PT Discharge Disposition: Home or Self Care 11/23/2024 Telephone [facility] [address] [place] [address] Krissy Rhodes, RESTAURANT WORKER Other 11/23/2024 Telephone [facility] [address] [place] [address] Samm Ledesma, RESTAURANT WORKER Headache 11/22/2024 10:32 AM EDT - 11/22/2024 1:30 PM EDT Emergency [facility] [place] [address] Stone Castellano MD Acute nonintractable headache, unspecified headache type (Primary Dx) Discharge Disposition: Home or Self Care 11/22/2024 Nurse Triage [facility] [address] [place] [phone] Macarena Aldrich RN 11/21/2024 1:21 PM EDT - 11/21/2024 5:35 PM EDT Emergency [facility] [place] [address] Saúl Melendez MD Migraine with status migrainosus, not intractable, unspecified migraine type (Primary Dx) Discharge Disposition: Home or Self Care 11/21/2024 Travel 11/21/2024 Nurse Triage [facility] Nurse Now [address] [place] [phone] Annette Moreira RN 11/21/2024 Telephone [facility] [place] [address] Tacho Echavarria MD Symptom Call 11/19/2024 2:21 PM EDT - 11/19/2024 11:59 PM EDT Hospital Encounter [facility] Physical Therapy [address] [place] [address] Kylah Lawlre, PT Discharge Disposition: Home or Self Care 11/18/2024 7:58 AM EDT - 11/18/2024 11:59 PM EDT Hospital Encounter [facility] Physical Therapy [address] [place] [address] Shaunna Workman, PT Discharge Disposition: Home or Self Care 11/17/2024 8:55 AM EDT - 11/17/2024 11:59 PM EDT Hospital Encounter [facility] Physical Therapy [place] [address] [facility] [address] [place] [address] Kylah Lawler, PT Discharge Disposition: Home or Self Care 11/16/2024 Specialty Pharmacy [facility] [address] [place] [phone] Sheridan Arellano, [facility] Migraine Medication Management (Qulipta) 11/13/2024 Social Work [facility] Cancer Care [facility] [place] [phone] Annette Walker MSW 11/13/2024 Patient Outreach [place] [address] Shilpa Cline, casting cleaner Nurse Navigation from Last 3 Months Immunizations Immunization Administration Dates Next Due Influenza High Dose 06/25/2024, 4(Deferred: Other - patient is getting vaccine at [facility]) Influenza Vaccine Quadrivalent PF 03/27/2023,01/2015 Influenza Vaccine, [...] Cronin MD; Location: [facility]; Service: Endoscopy GASTRIC BYPASS SURGERY 05/01/2017 Abdomen/N/A LAPAROSCOPIC SLEEVE GASTRECTOMY ; Surgeon: Marcus Perez MD; Location: [facility] MAIN OR; Service: General IR 2 [...] STIMULATOR IMPLANT; Surgeon: Munir Hilton MD; Location: [facility] MA[facility] OR; Service: Pain Management Medical devices from this surgery are in the Medical Devices section. SPINE SURGERY 01/04/2021 N/A PAIN PUMP PERMANENT IMPLANT; Surgeon: Munir Hilton MD; Location: [facility] MA[facility] OR; Service: Pain Management Medical devices from this surgery are in the Medical Devices section. IR FLUOROSCOPY GUIDED NEEDLE PLACEMENT 01/17/2021 IR FLUOROSCOPY GUIDED NEEDLE PLACEMENT 01/17/2021 [facility] SPINE CTR IMAGING IR GUIDED INJECT TRANSFORAM EPIDUR LUMB OR SACRAL SINGLE LVL 08/03/2022 IR GUIDED INJECT TRANSFORAMINAL EPIDUR LUMB OR SACRAL SINGLE LVL 08/03/2022 Sin Tran MD [facility] SPINE CTR IMAGING BREAST BIOPSY 10/25/2023 Right 5:00 and 6:00 IR PORT PLACEMENT EQUAL OR > 5 YEARS 11/29/2023 IR PORT PLACEMENT EQUAL OR > 5 YEARS 11/29/2023 Joselito Goodwin MD [facility] IR MASTECTOMY 07/06/2024 Right Right modified radical mastectomy; Surgeon: Matt Ulrich MD; Location: [facility] MAIN OR; Service: General Medical History [...] from your doctor or pharmacy? Never 11/07/2023 [email or web address] Answer Date Recorded In the past 12 months has [employer], [employer], oil, or water AIT threatened to shut off services in your [...] Date Recorded PHQ-2 Total Score 5 07/07/2024 [employer] [place] [facility] - Occupational Stress [...] in a intermediate (including now)? No 11/07/2023 [facility] IP Transportation Answer D ate Recorded [...] EDT Inhaled Oxygen Concentration - - Weight 84.1 kg (185 lb 6.4 oz) 02/10/2025 10:40 AM EDT Height 160 cm (5' 3 ) 02/10/2025 10:40 AM EDT Body Mass Index 32.84 02/10/2025 10:40 AM EDT Plan of Treatment Upcoming Encounters Date Type Department Care Team (Late st Contact Info) Description 03/02/2025 11:40 AM EDT Office Visit [facility] [address] [place] [address] [place] [address] [place] [address] 03/02/2025 12:45 PM EDT Procedure visit [facility] [address] [place] [address] Samm Ledesma, RESTAURANT WORKER [address] [facility] [address] [address] [place] [address] [place] [address] 03/10/2025 12:30 PM EDT Appointment [facility] [place] [address] 03/10/2025 1:00 PM EDT [facility]ointment [facility] [place] [address] Tacho Echavarria MD [address] [place] [address] 04/29/2025 9:15 AM EDT Appointment [facility] RAD ONC [place], [place] [phone] Batool Celis MD [address] [facility] [place] [address] 05/19/2025 2:15 PM EST Office Visit [facility] [place] [address] [facility] [address] [facility] [address] [place] [address] Sin Tran MD [address] [place] [address] [place] [address] 08/12/2025 10:40 AM EST Appointment [facility] Women's Wellness [facility] [address] [place] [phone] Matt Ulrich MD [address] [facility] [address] [place] [address] Health Maintenance Due Date Last Done Comments [...] 04/07 Meningococcal B Vaccine Aged Out No lisandro teixeira eligible based on patient's age to complete this topic Goals Goal Patient Goal Type Associated Problems Recent Progress Patient-Stated? Author Blood Pressure < 140/90 Blood Pressure 121/77(02/04 2:04 PM EDT) No Chetna Cedeno MD Breast [facility] Breast Health On track(2024 11:27 AM EDT) No Jasmin Porter, RAUL Note: Patient acknowledges understanding of new diagnosis, plan of care, available resources and how to contact Nurse Navigator with any future questions or concerns. [facility] Not on track(2024 11:27 AM EDT) No Jasmin Porter, RAUL Note: Patient will be compliant with monthly SBE and is aware of who to contact for any unusual or concerning findings. [facility] On track(2024 11:27 AM EDT) No Demi Garibay, RAUL Note: Patient will be compliant with taking Aromatase Inhibitor daily and understands who to contact to discuss any side effects or complications. Maintain a healthy diet, exercise regularly and maintain an ideal body weight General No Sanam Julio MA Medical Devices Implanted Type Area Used Car Make Ready Mechanic Device Identifier Shelf Expiration Date Model / Serial / Lot Kit Acc .133in Injex Didi Baso4 Biwing Flxb Rem Tl Preld - [id number] Implanted:Qty: 1 on 02/24/2020 by Munir Hilton MD at [facility] N/A: Back [employer]:NEURO 10/28/2023 [id number] / / [id number] Neurostimulator Rechar Adapt-Stim Sure Scan Intellis - [id number] Implanted:Qty: 1 on 02/24/2020 by Munir Hilton MD at [facility] N/A: Back [employer]:NEURO 12/19/2020 [id number] / [id number] / Kit Lead Percutaneous Mri Surescan Vectris 1x8 60cm - [id number] Implanted:Qty: 1 on 02/24/2020 by Munir Hilton MD at [facility] N/A: Back [employer]:NEURO 09/09/2023 [id number] / / [id number] Kit Lead Percutaneous Mri Surescan Vectris 1x8 60cm - [id number] Implanted:Qty: 1 on 02/24/2020 by Munir Hilton MD at [facility] N/A: Back [employer]:NEURO 10/08/2023 [id number] / / [id number] Device Suturing Mechanical Fixate Tissue Band - [id number] Implanted:Qty: 1 on 02/24/2020 by Munir Hilton MD at [facility] N/A: Back [employer]:NEUROMODULA TION 02/03/2024 FB-101- / / [id number] Device Suturing Mechanical Fixate Tissue Band - [id number] Implanted:Qty: 1 on 02/24/2020 by Munir Hilton MD at [facility] N/A: Back [employer]:NEUROMODULA TION 02/03/2024 FB-101- / / [id number] Envelope Absorbable Tyrx Polyarylate Medium 2.7in X 2.5in - [id number] Implanted:Qty: 1 on 02/24/2020 by Munir Hilton MD at [facility] N/A: Back [employer]:NEURO 12/03/2020 [id number] / / [id number] Device Sut Fixate Anchr Ld Tiss Bnd [id number] - [id number] Implanted:Qty: 1 on 01/04/2021 by Munir Hilton MD at [facility] NA: Back [employer]:NEUROMODULA TION [id number] 10/25/2024 FB-101- / / [id number] Cath It 1-Pc 114cm 86cm Didi 4-Lyr Sut-Ls Beater Machine Operator Conn Lng Spin - [id number] Implanted:Qty: 1 on 01/04/2021 by Munir Hilton MD at [facility] N/A: Back [employer]:NEURO 12/10/2022 [id number] / / [id number] Pump It 2.5mm [id number] Flxb Synchromed Ii Rsvr Bk - [id number] Implanted:Qty: 1 on 01/04/2021 by Munir Hilton MD at [facility] N/A: Back [employer]:NEURO 01/02/2022 [id number] / [id number] / Port Infs 8fr Sarah 1.6x2.6mm Xcela Pwr Inj Lpro Ti Pu-11/29/2023 Implanted:Qty: 1 on 11/29/2023 by Joselito Goodwin MD [facility] [id number] / / [id number] Procedures Procedure Name Priority Date/Time Associated Diagnosis Comments VITAMIN B12/ FOLIC ACID Routine 02/05/20 25 2:03 PM EDT Invasive ductal carcinoma of breast, female, right (HCC) CBC WITH DIFF STAT 02/04/2025 2:03 PM EDT Invasive ductal carcinoma of breast, female, right (HCC) IRON+TIBC Routine 02/04/2025 2:02 PM EDT Invasive ductal carcinoma of breast, female, right (HCC) COMPREHENSIVE METABOLIC PANEL STAT 2:02 PM EDT Invasive ductal carcinoma of breast, female, right (HCC) COMPREHENSIVE METABOLIC PANEL STAT 1:41 PM EDT [...] WITH DIFF STAT 11/21/2024 3:02 PM EDT MM MAMMO DIGITAL STEPHANE DIAGN RIGHT Routine 01/27/2024 11:20 AM EDT Invasive ductal carcinoma of breast, female, right (HCC) GMED COLONOSCOPY Routine 07/12/2015 2:30 PM EST from Last 3 Months or Most Recently Relevant to Health Maintenance Results * VITAMIN B12/ FOLIC ACID (02/04/2025 2:03 PM EDT) Only the most recent of2 resultswithin the time period is included. Vitamin B12 271 232 - 1,245 pg/mL 02/04/2025 4:31 PM EDT [facility] Folate 6.16 >=4.80 ng/mL 02/04/2025 4:31 PM EDT [employer] Blood VENOUS BLOOD / Unknown Venipuncture / Unknown 02/04/2025 2:03 PM EDT 02/04/2025 2:03 PM EDT Narrative [facility] - 02/04/2025 4:31 PM EDT Ingestion of haroon doses of biotin (>5 mg/day) taken within 8 hours of drawing blood sample can interfere with this immunoassay test. [facility] Radha Echavarria MD CHEMISTRY ORDERABLES Final Result [facility] [address] [facility] , [place] [address] * (ABNORMAL) CBC WITH DIFF (02/04/2025 2:03 PM EDT) Only the most recent of5 resultswithin the time period is included. WBC 8.1 3.7 - 10.3 x10(3)/mc L 02/04/2025 2:07 PM EDT [facility] RBC 2.95(L) 3.90 - 5.20 x10(6)/mc L 02/04/2025 2:07 PM EDT [facility] Hgb 9.4(L) 11.2 - 15.7 g/dL 02/04/2025 2:07 PM EDT [facility] Hct 28.1(L) 34.0 - 45.0 % 02/04/2025 2:07 PM EDT [facility] MCV 95.3 80.0 - 100.0 fL 02/04/2025 2:07 PM EDT [facility] MCH 31.9 26.0 - 34.0 pg 02/04/2025 2:07 PM EDT [facility] MCHC 33.5 30.7 - 35.5 g/dL 02/04/2025 2:07 PM EDT [facility] RDW 15.0(H) <=14.9 % 02/04/2025 2:07 PM EDT [facility] Platelet 163 155 - 369 x10(3)/mc L 02/04/2025 2:07 PM EDT [facility] MPV 8.8 8.8 - 12.5 fL 02/04/2025 2:07 PM EDT [facility] Neut # Prelim 5.6 1.6 - 6.1 x10(3)/mc L 02/04/2025 2:07 PM EDT [facility] Comment:Preliminary automate d absolute neutrophil count. Value may change if manual differential is indicated. Neut Percent 68.4 % 02/04/2025 2:07 PM EDT [facility] Comment:Neutrophils equals s egs plus bands Imm Gran% 0.2 % 02/04/2025 2:07 PM EDT [facility] Comment:Automated count of m etamyelocytes, myelocytes and promyelocytes. Lymph Percent 23.4 % 02/04/2025 2:07 PM EDT [facility] Carson Percent 5.7 % 02/04/2025 2:07 PM EDT [facility] Eos Percent 2.1 % 02/04/2025 2:07 PM EDT [facility] Baso Percent 0.2 % 02/04/2025 2:07 PM EDT [facility] Neut # 5.6 1.6 - 6.1 x10(3)/mc L 02/04/2025 2:07 PM EDT [facility] Comment:Neutrophils equals s egs plus bands IMMGRAN# 0.0 0.0 - 0.1 x10(3)/mc L 02/04/2025 2:07 PM EDT [facility] Comment:Automated count of m etamyelocytes, myelocytes and promyelocytes. An absolute IG <0.1 is reported as 0.0. Lymph # 1.9 1.2 - 3.9 x10(3)/mc L 02/04/2025 2:07 PM EDT [facility] Carson # 0.5 0.3 - 0.9 x10(3)/mc L 02/04/2025 2:07 PM EDT [facility] Eos# 0.2 0.0 - 0.5 x10(3)/mc L 02/04/2025 2:07 PM EDT [facility] Baso # 0.0 0.0 - 0.1 x10(3)/ L 02/04/2025 2:07 PM EDT [facility] Blood VENOUS BLOOD / Unknown Venipuncture / Unknown 02/04/2025 2:03 PM EDT 02/04/2025 2:03 PM EDT Tacho Echavarria MD HEMATOLOGY ORDERABLES Final Result [facility] [address] [place] [address] * IRON+TIBC (02/04/2025 2:02 PM EDT) Only the most recent of2 resultswithin the time period is included. Iron 82 30 - 160 mcg/dL 02/04/2025 2:59 PM EDT [facility] Transferrin 279 200 - 360 mg/dL 02/04/2025 2:59 PM EDT [facility] Transferrin Saturation 21 20 - 50 % 02/04/2025 2:59 PM EDT [facility] TIBC 391 250 - 400 mcg/dL 02/04/2025 2:59 PM EDT [facility] Blood VENOUS BLOOD / Unknown Venipuncture / Unknown 02/04/2025 2:02 PM EDT 02/04/2025 2:02 PM EDT us Tacho Echavarria MD CHEMISTRY ORDERABLES Final Result [facility] [address] [place] [id number] [facility] [address] [place] [id number] * (ABNORMAL) COMPREHENSIVE METABOLIC PANEL (02/04/2025 2:02 PM EDT) Only the most recent of4 resultswithin the time period is included. Sodium 142 136 - 145 mmol/L 02/04/2025 2:28 PM EDT [facility] Potassium 3.3(L) 3.5 - 5.0 mmol/L 02/04/2025 2:28 PM EDT [facility] Chloride 108(H) 98 - 107 mmol/L 02/04/2025 2:28 PM EDT [facility] Total CO2 19(L) 22 - 29 mmol/L 02/04/2025 2:28 PM EDT [facility] Anion Gap 15 7 - 16 mmol/L 02/04/2025 2:28 PM EDT [facility] Calcium 8.6 8.6 - 10.4 mg/dL 02/04/2025 2:28 PM EDT [facility] Glucose Lvl 134(H) 70 - 99 mg/dL 02/04/2025 2:28 PM EDT [facility] BUN 12 6 - 20 mg/dL 02/04/2025 2:28 PM EDT [facility] Creatinine 0.78 0.51 - 1.30 mg/dL 02/04/2025 2:28 PM EDT [facility] Albumin 3.8 3.5 - 5.2 gm/dL 02/04/2025 2:28 PM EDT [facility] Total Protein 6.0(L) 6.4 - 8.3 gm/dL 02/04/2025 2:28 PM EDT [facility] Bili Total 0.3 0.2 - 1.3 mg/dL 02/04/2025 2:28 PM EDT [facility] ALT 8 <=41 U/L 02/04/2025 2:28 PM EDT [facility] AST 12 <=40 U/L 02/04/2025 2:28 PM EDT [facility] Alk Phos 95 36 - 123 U/L 02/04/2025 2:28 PM EDT [facility] eGFR (CKD-EPIcr 2020) 88 >=60 mL/min/1.7 3 m2 02/04/2025 2:28 PM EDT [facility] Comment:Estimated GFR was ca lculated using the CKD-EPIcr (2020) equation refit without race. The equation is recommended by the National Kidney Foundation - [place] Society of Nephrology Task Force. Blood VENOUS BLOOD / Unknown Venipuncture / Unknown 02/04/2025 2:02 PM EDT 02/04/2025 2:02 PM EDT us Tacho Echavarria MD CHEMISTRY ORDERABLES Final Result Performing Organization Address City/[facility]/ZIP Co de Phone Number [facility] [address] [place] [phone] * MISCELLANEOUS LAB (01/06/2025 1:13 PM EDT) Only the most recent of2 resultswithin the time period is included. MISC COMMENT Tiago 01/07/2025 7:35 AM EDT [facility] Blood VENOUS STRUCTURE / Unknown Port / Unknown 01/06/2025 1:13 PM EDT 01/07/2025 7:31 AM EDT us Tacho Echavarria MD HEMATOLOGY ORDERABLES Final Result [facility] [address] [place] [id number] * PHARMACOGENOMIC PANEL (01/06/2025) [facility] Pharmacogenomic Lab Comments See Comment ONEOME Comment:Hemizygous males and homozygous females are reported as HTR2C CC. Pharmacogenomic Lab Method See Comment MARTINMIKE Comment: This test was developed, and its performance characteristics determined by [facility], a clinical laboratory located at [address] [place] [address]. These tests have not been cleared or approved by the U.S. Food and Drug Administration. The FDA does not require this test to go through premarket FDA review. [employer] is certified under CLIA-88 and accredited by the College of [place] Pathologists as qualified to perform high-complexity testing. This test is approved for clinical use by the [facility]. This test should not be regarded as investigational or for research. *Genomic DNA was analyzed by PCR using [employer] TaqMan and/or iKoaQ probe-based methods to interrogate the variant locations [...] are associated with more than one haplotype, [employer] infers and reports the most likely diplotype [...] Call. *The variant detection methods validated by [employer] provide >99.9% accuracy for the adult population; [...] or pharmacogenomic specialist. For additional support, contact [facility] through the website or by calling [phone]. Blood 01/06/2025 01/22/2025 Narrative MARTINOME - 01/27/2025 This result has genomic variants that were not included in this document. us Aury Delgado MD [facility] - ORDERABLES Final Result Performing Organization Address City/State/[facility] Co de Phone Number CLARA [address] [phone] * ESOPHAGOGASTRODUODENOSCOPY (EGD) (12/01/2024 11:06 AM EDT) [...] prior sleeve gastrectomy Staff Staff Role King lOiva MD Performing Provider Shaylee curtis, GEOMAGNETICIAN GEOMAGNETICIAN Viv Martinez, RAUL Visual Manager Madelyn Sidhu, cork insulator helper Nurse Aliya Friedman MD Anesthesiologist Medications See [...] AM EDT) CASE REPORT Surgical Pathology Case: [id number] Authorizing Provider: King Oliva MD Collected: 12/01/2024 1059 Ordering Location: [facility] Received: 12/01/2024 1237 Pathologist: Estefany Spencer MD Specimens: A) - Small Intestine, Duodenum, duodenal biopsies via forceps B) - Gastric, gastric biopsies via forceps C) - Gastroesophageal Junction, gastroesophageal junction biopsies via forceps 12/03/2024 10:48 AM [facility] FINAL DIAGNOSIS A. Duodenal biopsies via forceps: Small bowel mucosa with no significant diagnostic abnormalities. Negative for celiac disease. B. Gastric, biopsies via forceps: Mild chronic inactive gastritis. Helicobacter microorganisms are not identified. C. Gastroesophageal junction, biopsies via forceps: Predominantly inflamed gastric cardia type mucosa with reactive changes. Scant esophageal squamous epithelium. Negative for intestinal metaplasia and dysplasia. 12/03/2024 10:48 AM [facility] at 1048 EDT GROSS DESCRIPTION A. Received in formalin, in a container labeled with the patient's name, hospital number, and duodenal biopsies via forceps , are seven sahu soft tissue fragments, 0.2-0.5 cm in greatest dimension. The fragments are entirely submitted in A1. Saima George MS, PA ([facility]) 12/01/2024 B. Received in formalin, in a container labeled with the patient's name, hospital number, and gastric biopsies via forceps , are six sahu soft tissue fragments, 0.3-1.1 cm in greatest dimension. The fragments are entirely submitted in B1. Saima George MS, PA ([facility]) 12/01/2024 C. Received in formalin, in a container labeled with the patient's name, hospital number, and gastroesophageal junction biopsies via forceps , are two sahu soft tissue fragments, both 0.4 cm in greatest dimension. The fragments are entirely submitted in C1. Saima George MS, PA ([facility]) 12/01/2024 12/03/2024 10:48 AM T [facility] MICROSCOPIC DESCRIPTION The microscopic examination may have been rendered in whole, or in part, by analyzing high-resolution digital images (whole slide images) on the [employer] Digital Pathology platform validated at [facility]. 12/03/2024 10:48 AM [facility] EMBEDDED IMAGES 12/03/2024 10:48 AM EDT [facility] Tissue DUODENAL STRUCTURE / Unknown 12/01/2024 10:59 AM EDT 12/01/2024 12:37 PM EDT Tissue specimen (specimen) STOMACH STRUCTURE / Unknown 12/01/2024 11:01 AM EDT 12/01/2024 12:37 PM EDT Tissue specimen (specimen) CARDIOESOPHAGEAL JUNCTION STRUCTURE / Unknown 12/01/2024 11:02 AM EDT 12/01/2024 12:37 PM EDT us King Oliva MD PATHOLOGY ORDERABLES Final Result Performing Organization Address [facility] Co de Phone Number [facility] [address] [place] [address] [phone] * INTRAOP AIRWAY PLACEMENT (12/01/2024 10:56 AM EDT) Narrative [facility] - 12/01/2024 10:56 AM EDT Shaylee Thurman CRNA 12/01/2024 10:56 AM Intraop Airway Placement: Date/Time: 12/01/2024 10:56 AM Induction type: IV Airway type: Nasal cannula salter Placement verified: End tidal CO2 us Aliya Friemdan MD [place] ANESTHESIA Final Result Performing Organization Address [facility] Co de Phone Number [facility] [address] [place] [address] * BASIC METABOLIC PANEL (11/21/2024 3:02 PM EDT) Sodium 140 136 - 145 mmol/L 11/21/2024 3:22 PM EDT [facility] Potassium 3.8 3.5 - 5.0 mmol/L 11/21/2024 3:22 PM EDT [facility] Chloride 107 98 - 107 mmol/L 11/21/2024 3:22 PM EDT [facility] Total CO2 23 22 - 29 mmol/L 11/21/2024 3:22 PM EDT [facility] Anion Gap 10 7 - 16 mmol/L 11/21/2024 3:22 PM EDT [facility] Calcium 8.6 8.6 - 10.4 mg/dL 11/21/2024 3:22 PM EDT [facility] Glucose Lvl 98 70 - 99 mg/dL 11/21/2024 3:22 PM EDT [facility] BUN 14 6 - 20 mg/dL 11/21/2024 3:22 PM EDT [facility] Creatinine 0.57 0.51 - 1.30 mg/dL 11/21/2024 3:22 PM EDT [facility] eGFR (CKD-EPIcr 2020) 105 >=60 mL/min/1.7 3 m2 11/21/2024 3:22 PM EDT [facility] Comment:Estimated GFR was ca lculated using the CKD-EPIcr (2020) equation refit without race. The equation is recommended by the National Kidney Foundation - [place] Society of Nephrology Task Force. Blood VENOUS BLOOD / Unknown Venipuncture / Unknown 11/21/2024 3:02 PM EDT 11/21/2024 3:05 PM EDT us Saúl Melendez MD CHEMISTRY ORDERABLES Final Resu lt [place] [id number] * MM MAMMO DIGITAL STEPHANE DIAGN RIGHT (01/27/2024 11:20 AM EDT) Anatomical Region Laterality Modality Breast Right Mammography 01/27/2024 12:5 7 PM EDT Impressions 01/27/2024 12:57 PM EDT Incomplete-need additional imaging evaluation ([id number]-3) ~ RECOMMENDATION: Ultrasound of the right breast. [...] the next mammogram, in accordance with the [place] College of Radiology and the Society of [...] sinceprior. ~ IMPRESSION: Incomplete-need additional imaging evaluation (QNB-[id number]-2) ~ RECOMMENDATION: Ultrasound of the right breast. [...] the next mammogram, in accordance with the [place] College of Radiology and the Society of Breast Imaging recommendations. Jeanette Smith APRN IMG MAMMOGRAPHY ORDERABLES Final Result * GMED COLONOSCOPY (07/12/2015 2:30 PM EST) 07/12/2015 2:30 PM EST Impressions [facility] - 07/12/2015 3:30 PM EST [...] is an excerpt of the full report. Stone Cronin MD GI PROCEDURE ORDERABLES Doris l Result Performing Organization Address City/State/[facility] Co de Phone Number [facility] [address] [place] [address] from Last 3 Months or Most Recently Relevant to Health Maintenance Insurance [facility] [id number] [id number] [place] [id number] Advance Directives For more information, please contact: [phone] * Full Code (Latest Code Status on File) Date Activated Date Inactivated Comments 05/01/2017 2:57 PM 05/03/2017 5:30 PM Care Teams Office Machines Sales Representative Relationship Specialty [place] [address] [place] [phone] PCP - General 06/21/10 Arlyn Schmidt MD [address] [place] [address] Consulting Physician Internal Medicine-Endocrinology, Diabetes & Metabolism 11/28/20 Tacho Echavarria MD [address] [place] [address] Internal Medicine-Medical Oncology 11/12/23 Matt Ulrich MD [address] [facility] [place] [address] Surgery-Surgical Oncology 12/04/23 Eze Brock Pastoral Care 12/13/23 Annette Walker, [facility] [place] Multicultural Internship 05/13/24 Batool Celis MD [address] [facility] [place] [address] Radiation Oncologist Radiology-Radiation Oncology 06/08/24
--- OUTSIDE RECORDS SUMMARY | 2025-02-12 11:11 | XMS_ITS | Encounter Summary ---
Author Organization [place] [address] Care Team Providers Care Motion Study Analyst Name Role Phone Chetna Cedeno MD Primary Care Provider [phone] Arlyn Schmidt MD Unavailable [phone] Tacho Echavarria MD Unavailable [phone] Matt Ulrich MD Unavailable [phone] Eze Brock Unavailable Annette Walker Unavailable [phone] Batool Celis MD Unavailable [phone] Reason for Visit * Reason Comments Medication Refill Encounter Details Date Type Department Care Team (Late st Contact Info) Description 01/15/2025 Refill [facility] [address] [place] [address] Samm Ledesma, POLICY CHANGE CLERK [address] [place] [address] Medication Refill Social History Tobacco Use Types [...] doctor or pharmacy? Never 11/07/2023 [facility] Utilities Answer Date Recorded [...] in a chcf (including now)? No 11/07/2023 [facility] Transportation Answer D ate Recorded In [...] 11:40 AM EDT Office Visit ROMULO Mahmood [address] [place] [address] [place] [address] [place] [address] 03/02/2025 12:45 PM EDT Procedure visit [facility] [address] [place] [address] Samm Ledesma APRN [address] [place] [address] 03/10/2025 12:30 PM EDT Appointment [facility] [place], [place] [phone] 03/10/2025 1:00 PM EDT [facility]ointment [facility] [place] [address] Tacho Echavarria MD [address] [place] [address] 04/29/2025 9:15 AM EDT Appointment [facility] RAD ONC [place], [place] [phone] Batool Celis MD [address] [place] [address] [place] [address] 05/19/2025 2:15 PM EST Office Visit [address] [address] Sin Tran MD [address] [place] [address] 08/12/2025 10:40 AM EST Appointment [facility] [place] [address] Matt Ulrich MD [address] [place] [address] documented as of this encounter Goals Goal [...] documented as of this encounter Care Teams Motion Study Analyst Relationship Specialty [place] [address] [place] [address] PCP - General 06/21/10 Arlyn Schmidt MD [address] [place] [address] Consulting Physician Internal Medicine-Endocrinology, Diabetes & Metabolism 11/28/20 Tacho Echavarria MD 1 [place], [place] [phone] Internal Medicine-Medical Oncology 11/12/23 Matt Ulrich MD 1 [place] [address] Surgery-Surgical Oncology 12/04/23 Eze Brock Pastoral Care 12/13/23 Annette Walker MSW Rubber Heel And Sole Press Tender 05/13/24 Batool Celis MD 1 [facility] [place] [address] Radiation Oncologist Radiology-Radiation Oncology 06/08/24 documented as of this encounter
--- OUTSIDE RECORDS SUMMARY | 2025-02-12 11:11 | XMS_ITS | Encounter Summary ---
Author Organization [place] [address] Care Team Providers Care Motorbike Courier Name Role Phone Chetna Cedeno MD Primary Care Provider [phone] Arlyn Schmidt MD Unavailable [phone] Tacho Echavarria MD Unavailable Matt Ulrich MD Unavailable Eze Brock Unavailable Cheryl Nair RN Unavailable [phone] Sanam Murray MANAGER FRONT Unavailable Unavailable Annette Walker MANAGER FRONT Unavailable [phone] Batool Celis MD Unavailable [phone] Encounter Details Date Type Department Care Team (Late st Contact Info) Description 07/06/2024 Orders Only [facility] One [facility] [address] [place] [address] Shilpa Tan MD [address] [place] [phone] Social History Tobacco Use Types Packs/Day Years [...] often do you attend chur ch or anglican services? 1 to 4 times per year [...] any time in the past 12 m [facility], were you homeless or living in a long-term (including now)? No 11/07/2023 [facility] IP Transportation Answer D [...] 07/06/2024 4:32 PM Kayla Lee RN * [place] Suicide Severity Rating Scale (Q shift for [...] 11:40 AM EDT Office Visit [facility] [place] [address] [place] [address] [place] [address] [address] [place] [address] 03/02/2025 12:45 PM EDT Procedure visit [facility] [address] [facility] [address] [facility] [address] [facility] [address] [place], [place] [id number] Samm Ledesma, DEMOLITIONIST [address] [place], [place] [address] 03/10/2025 12:30 PM EDT Appointment [place] [address] 03/10/2025 1:00 PM EDT Appointment [place] [address] Tacho Echavarria MD [address] [place] [id number] 04/29/2025 9:15 AM EDT Appointment [place] [address] Batool Celis MD [address] [place] [address] [place] [address] 05/19/2025 2:15 PM EST Office Visit [address] [address] Sin Tran MD [address] [place] [address] 08/12/2025 10:40 AM EST Appointment [facility] Women's Wellness [facility] [place] [id number] Matt Ulrich MD [address] [place] [address] documented as of this encounter Goals Goal Patient Goal Type Associated Problems Recent Progress Patient-Stated? Author Blood Pressure < 140/90 Blood Pressure 121/77(02/04 2:04 PM EDT) No Chetna Cedeno MD Breast [facility] Breast Health On track(2024 11:27 AM EDT) No Jasmin Porter, RN Note: Patient acknowledges understanding of new diagnosis, plan of care, available resources and how to contact Nurse Navigator with any future questions or concerns. Breast [facility] Breast Health Not on track(2024 11:27 [...] EST) 07/06/2024 12:5 1 PM EST Narrative [facility] - 09/24/2024 2:31 PM EDT Requesting Provider: MATT Womack Specimen = [id number] us Shilpa Tan MD PATHOLOGY ORDERABLES Final R esult [facility] 1 [place] [address] documented in this encounter Visit Diagnoses Not on filedocumented in this encounter Additional Health Concerns Infection Onset Date Last Indicated Resolved Time COVID-19 09/04/2024 09/04/2024 09/24/2024 10:1 2 PM EDT Assessment Noted Time PHQ-9 Depression Total Score: 12 03/16/ 024 12:00 PM EDT documented as of this encounter Care Teams Motorbike Courier Relationship Specialty [place] [address] [place] [address] PCP - General 06/21/10 Arlyn Schmidt MD [address] [place], [place] [address] Consulting Physician Internal Medicine-Endocrinology , Diabetes & Metabolism 11/28/20 Tacho Echavarria MD 1 [place] [address] Internal Medicine-Medical Oncology 11/12/23 Matt Ulrich MD 1 [place], [place] [id number] Surgery-Surgical Oncology 12/04/23 Eze Brock Pastoral Care 12/13/23 Cheryl Nair, RN Oncology Nurse Navigator 03/25/2412/13 Sanam Murray MSW Jack Spooler Tender 04/10/24 07/30/24 nAnette Walker MSW Jack Spooler Tender 05/13/24 Batool Celis MD 1 [facility] [place] [address] Radiation Oncologist Radiology-Radiation Oncology 06/08/24 documented as of this encounter
--- OUTSIDE RECORDS SUMMARY | 2025-02-12 11:11 | XMS_ITS | Encounter Summary ---
Author [place] [address] Care Team Providers Care Organ Installer Name Role Phone Chetna Cedeno MD Primary Care Provider [phone] Leslie Cooley SHUTTLE FILLER Unavailable UnaBatool Talley WALL TAPER HELPER Unavailable Unavailab Arlyn Disla MD Unavailable [phone] Cheryl Nair RN Unavailable [phone] Tacho Echavarria MD Unavailable [phone] Matt Ulrich MD Unavailable [phone] Hilary Clemens RN Unavailable Unavaila Eze Caro Unavailable Shila Albrecht RN Unavailable Unavail able Cheyanne To RN Unavailable UnavailRayna Johnson RN Unavailable Unavailab Shilpa Olivarez RN Unavailable [phone] Tulio Duong RN Unavailable Unavailable Yaquelin Weaver RN Unavailable Unavailable Pam Wang RN Unavailable Unavailable Jazmín Nair RN Unavailable Unavailable Fidel Rainey RN Unavailable Unavailable Cheryl Nair RN Unavailable [phone] Ophelia Lala RN Unavailable Glo Lee RN Unavailable Unavailab Sanam Evans CHIEF ORDER DISPATCHER Unavailable Unavailable Hilary Clemens RN Unavailable Unavaila Ruthy Clayton RN Unavailable Unavailable Rayna Partida RN Unavailable Unavailab Artur Nelson RN Unavailable Unavailable Annette Walker CHIEF ORDER DISPATCHER Unavailable [phone] Emmie Crain RN Unavailable Unavailable Brigida Enriquez RN Unavailable Unavailable Fidel Rainey RN Unavailable Unavailable Batool Celis MD Unavailable [phone] Encounter Details Date Type Department Care Team (Late st Contact Info) Description 07/12/2015 Orders Only [facility] G[facility] [address] [facility] Building [address] [place] [phone] Stone Cronin MD Social History Tobacco Use [...] 11:40 AM EDT Office Visit [facility] [place] [address] [place] [address] [place] [address] [place] [address] 03/02/2025 12:45 PM EDT Procedure visit [facility] [address] [facility] [address] [place] [address] Samm Ledesma CHAIN SALES REPRESENTATIVE [address] [facility] [facility] [address] [place] [address] 03/10/2025 12:30 PM EDT Appointment [place] [address] 03/10/2025 1:00 PM EDT Appointment [facility] [place] [address] Tacho Echavarria MD 1 [place] [address] 04/29/2025 9:15 AM EDT Appointment [facility] [place] [address] Batool Celis MD [address] [facility] [address] [place] [address] 05/19/2025 2:15 PM EST Office Visit [facility] [address] [facility] [address] [place] [address] Sin Tran MD [facility] [place] [address] 08/12/2025 10:40 AM EST Appointment [facility] Women's Wellness [place] One [facility] [place] [address] Matt Ulrich MD 20 [facility] 254 [place] [address] documented as of this encounter Procedures Procedure Name Priority Date/Time Associated Diagnosis Comments [facility] COLONOSCOPY Routine 07/12/2015 2:30 PM EST documented in this encounter Results * [facility] COLONOSCOPY (07/12/2015 2:30 PM EST) 07/12/2015 2:30 PM EST Impressions [facility] - 07/12/2015 3:30 PM EST [...] MD GI PROCEDURE ORDERABLES Doris [email or web address] Result [facility] 1 [place] [address] documented in this encounter Visit Diagnoses Not [...] documented as of this encounter Care Teams Organ Installer Relationship Specialty [place] [address] [place] [address] PCP - General 06/21/10 Leslie Cooley, SHUTTLE FILLER Returned Item Clerk 01/28/19 07/15/19 Batool Myers WALL TAPER HELPER Returned Item Clerk 02/13/19 07/15/19 Arlyn Schmidt MD [facility] Kevin [place], [place] [address] Consulting Physician Internal Medicine-Endocrinolog y, Diabetes & Metabolism 11/28/20 Cheryl Nair, RN Oncology Nurse Navigator 10/29/2302/05 Tacho Echavarria MD 1 [place] [address] Internal Medicine-Medical Oncology 11/12/23 Matt Ulrich MD [address] [facility] [place] [address] Surgery-Surgical Oncology 12/04/23 Hilary Clemens, RN Registered [...] Nurse Infusion Therapy 04/03/24 04/03/24 Sanam Murray, CHIEF ORDER DISPATCHER Returned Item Clerk 04/10/24 07/30/24 Hilary Clemens, RN Registered Nurse Infusion Therapy 04/21/24 04/21/24 Ruthy Walker RN Registered Nurse Infusion Therapy 04/24/24 04/24/24 Rayna Partida, RN Registered Nurse Infusion Clinic 05/01/24 05/01/24 Artur Roberts RN Registered Nurse Infusion Therapy 05/07/24 05/07/24 Aaron Annette, CHIEF ORDER DISPATCHER Returned Item Clerk 05/13/24 Emmie Crain, RN Registered Nurse Infusion Therapy 05/14/24 05/14/24 Brigida Enriquez, RN Registered Nurse Infusion Clinic 05/21/24 05/21/24 Fidel Rainey, RN Registered Nurse Infusion Therapy 05/28/24 05/28/24 Batool Celis MD [address] [place] [address] [place] [address] Radiation Oncologist Radiology-Radiation Oncology 06/08/24 documented as of this encounter
--- OUTSIDE RECORDS SUMMARY | 2025-02-12 11:11 | XMS_ITS | Encounter Summary ---
Author Organization [place] [address] Care Team Providers Care Mail Caller Name Role Phone Chetna Cedeno MD Primary Care Provider [phone] Arlyn Schmidt MD Unavailable [phone] Tacho Echavarria MD Unavailable [phone] Matt Ulrich MD Unavailable [phone] Eze Brock Unavailable Annette Walker Unavailable [phone] Batool Celis MD Unavailable [phone] Reason for Visit * Reason Onset Date Comments Follow-up 12/23/2024 Encounter Details Date Type Department Care Team (Late Contact Info) Description 12/23/2024 Telephone [facility] 1 [place], [place] [phone] Tacho Echavarria MD 1 [place], [place] [id number] Follow-up Social History Tobacco Use Types Packs/Day [...] from your doctor or pharmacy? Never 11/07/2023 [facility] Utilities Answer Date Recorded In [...] in a correction (including now)? No 11/07/2023 [facility] IP Transportation Answer D ate Recorded [...] is disconnected, no HIPAA on file. Sent WeWork message for pt to call [phone] schedule appointment and update personal info. * Telephone Encounter - Rosana Gupta RN - 12/23/2024 1:22 PM EDT Patient needs to get loretta draws every 3 months. Tellme system shows the kit was mailed to [...] 11:40 AM EDT Office Visit [facility] [place] [address] [place] [address] [place] [address] [place] [address] 03/02/2025 12:45 PM EDT Procedure visit [facility] NEUROLOG[facility] [address] [facility] [address] [place] [address] Samm Ledesma, LEYLA [address] [facility] [address] [place] [address] 03/10/2025 12:30 PM EDT Appointment [place] [address] 03/10/2025 1:00 PM EDT Appointment [facility] [place] [address] Tacho Echavarria MD [address] [place] [address] 04/29/2025 9:15 AM EDT Appointment [place] [address] Batool Celis MD [address] [place] [address] [place] [address] 05/19/2025 2:15 PM EST Office Visit [facility] [address] [place] [address] 401 [facility] 1D [place] [address] Sin Tran MD [address] [facility] [place] [address] 08/12/2025 10:40 AM EST Appointment [facility] Women's Wellness [place] [address] Matt Ulrich MD [address] [place] [address] 254 [place] [address] documented as of this encounter Goals Goal [...] documented as of this encounter Care Teams Mail Caller Relationship Specialty [place] [address] [place] [address] PCP - General 06/21/10 Arlyn Schmidt MD [address] [place], [place] [address] Consulting Physician Internal Medicine-Endocrinology, Diabetes & Metabolism 11/28/20 Tacho Echavarria MD 1 [place], [place] 9065[address] Internal Medicine-Medical Oncology 11/12/23 Matt Ulrich MD 1 [place], [place] [id number] Surgery-Surgical Oncology 12/04/23 Eze Brock Pastoral Care 12/13/23 Annette Walker, CLAY ARTISAN Software Test And Validation Engineer 05/13/24 Batool Celis MD 1 [place], [place] [phone] Radiation Oncologist Radiology-Radiation Oncology 06/08/24 documented as of this encounter
--- OUTSIDE RECORDS SUMMARY | 2025-02-12 11:12 | XMS_ITS | Encounter Summary ---
Author Organization [place] [address] Care Team Providers Care Supervisor International Reservations Name Role Phone Chetna Cedeno MD Primary Care Provider [phone] Arlyn Schmidt MD Unavailable [phone] Tacho Echavarria MD Unavailable [phone] Matt Ulrich MD Unavailable [phone] Eze Brock Unavailable Annette Walker HEALTH SERVICES MANAGER Unavailable [phone] Batool Celis MD Unavailable [phone] Encounter Details Date Type Department Care Team (Late st Contact Info) Description 02/01/2025 Social Work [facility] Cancer Care [facility] [place] [address] Sonny Fleming, HEALTH SERVICES MANAGER Social History Tobacco Use Types Packs/Day [...] from your doctor or pharmacy? Never 11/07/2023 [facility] Utilities Answer Date Recorded In the past 12 months has th e electric, gas, oil, or water [employer] threatened to shut off services in your [...] often do you attend chur ch or hinduism services? 1 to 4 times per year 11/07/2023 Do you belong to any clubs o r organizations such as buddhist groups, unions, fraternal or athletic groups, or [...] PHQ-2 Total Score 5 07/07/2024 [facility] of Occupat ional Health - Occupational Stress [...] in a penitentiary (including now)? No 11/07/2023 [facility] IP Transportation [...] Progress Notes * Sonny Fleming MSW - 02/01/2025 3:04 PM EDT 02/01/25 1504 Electronic Engraver Assessment Referred By Pt. Call Disease/[facility] Celery Cutter Assignment Breast cancer Referral Location: [facility] Reason for Referral transportation Identified Needs Transportation Social Work Interventions Education/Information;Transportation Dr. Echavarria does not feel pt is unable to drive to/from visits therefore, we cannot assist her in getting a waiver for rides to/from appointments. She will need to drive self. FARHAD Romo shared that it may be able to assist her with a gas card if she makes it in to her appointment. Nothing further from at this time. documented in this encounter Plan of Treatment Upcoming Encounters Date Type Department Care Team (Late st Contact Info) Description 03/02/2025 11:40 AM EDT Office Visit [facility] [place] [address] [place] [address] [place] [address] [place] [address] 03/02/2025 12:45 PM EDT Procedure visit [facility] [address] [facility] [address] [place] [address] Samm Ledesma, EDITOR TRADE JOURNAL [address] [facility] [address] [place] [address] 03/10/2025 12:30 PM EDT Appointment [facility] [place], [place] [id number] 03/10/2025 1:00 PM EDT Appointment [facility] [place] [address] Tacho Echavarria MD [address] [place] [id number] 04/29/2025 9:15 AM EDT Appointment [place] [address] Batool Celis MD [address] [place] [address] [place] [address] 05/19/2025 2:15 PM EST Office Visit [address] [address] Sin Tran MD [address] [place] [address] 08/12/2025 10:40 AM EST Appointment [facility] Women's Wellness [facility] [address] Matt Ulrich MD [address] [place], [place] [address] documented as of this encounter Goals Goal [...] as of this encounter Care Teams Supervisor International Reservations Relationship Specialty [place] [address] [place] [address] PCP - General 06/21/10 Arlyn Schmidt MD [address] [place] [address] Consulting Physician Internal Medicine-Endocrinology, Diabetes & Metabolism 11/28/20 Tacho Echavarria MD 1 [place] [address] Internal Medicine-Medical Oncology 11/12/23 Matt Ulrich MD 1 [place], [place] [address] Surgery-Surgical Oncology 12/04/23 Eze Brock Pastoral Care 12/13/23 Annette Walker MSW Celery Cutter 05/13/24 Batool Celis MD 1 [facility] [place] [place], [place] [phone] Radiation Oncologist Radiology-Radiation Oncology 06/08/24 documented as of this encounter
--- OUTSIDE RECORDS SUMMARY | 2025-02-12 11:12 | XMS_ITS | Encounter Summary ---
Author Organization [place] [address] Care Team Providers Care Auto Collision Repair Instructor Name Role Phone Chetna Cedeno MD Primary Care Provider [phone] Arlyn Schmidt MD Unavailable [phone] Tacho Echavarria MD Unavailable [phone] Matt Ulrich MD Unavailable [phone] Eze Brock Unavailable Annette Walker Unavailable [phone] Batool Celis MD Unavailable [phone] Reason for Visit * Reason Onset Date Comments Other 02/05/2025 BW Encounter Details Date Type Department Care Team (Late st Contact Info) Description 02/05/2025 Telephone [facility] [place] [address] [place] [address] [place] [address] [place] [address] Other (BW) Social History Tobacco Use Types Packs/Day Years [...] from your doctor or pharmacy? Never 11/07/2023 [facility] Utilities Answer Date Recorded In the [...] often do you attend chur ch or episcopal services? 1 to 4 times per year [...] in a correction (including now)? No 11/07/2023 [facility] IP Transportation Answer D ate Recorded [...] Refills Last Filled Start Date End Date potassium chloride (KLOR-CON M) 20 mEq Oral Tab Sust.Rel. Particle/Crystal Take 2 Tablets by mouth daily for 2 days. Take with meals 4 Tablet 02/05/2025 documented in this encounter Miscellaneous Notes * Telephone Encounter - Destiny Alejandre CCMA - 02/05/2025 1:41 PM EDT Not given potassium at DC -will take script Already scheduled for next week. * Telephone Encounter - Clarence Blanton MD - 02/05/2025 12:54 PM EDT Yes, they were likely trying to get her numbers up. Did she get a script on discharge? If not, please take what I sent. F/u with PCP next week * Telephone Encounter - Destiny Alejandre CCMA - 02/05/2025 12:27 PM EDT Pt states was on potassium in hospital - wanted to make sure OK still to take script.. * Addendum Note - Clarence Blanton MD - 02/05/2025 12:22 PM EDTAddended by: CLARENCE BLANTON on: 02/05/2025 12:22 PM Modules accepted: Orders * Telephone Encounter - Clarence Blanton MD - 02/05/2025 12:20 PM EDT I sent some potassium tabs for her to take to [facility] [place] * Telephone Encounter - Destiny Alejandre CCMA - 02/05/2025 11:27 AM EDT Please advise. Dr. Wilian SANZ until 02/08 * Telephone Encounter - Ghazala Sheridan - 02/05/2025 11:05 AM EDT Select the most appropriate reason for this telephone message: Other Who is calling (name & relationship to patient if not the patient): Patient What is needed OR why are they calling: pt said her potassium was 303, would like to know what she can do till see pcp on When is this needed by: today Where does this information need to go: pcp Return Method of Communication: Phone Call Additional information:N/A documented in this encounter Plan of Treatment Upcoming Encounters Date Type Department Care Team (Late st Contact Info) Description 03/02/2025 11:40 AM EDT Office Visit [facility] [place] [address] [place] [address] [place] [address] [place] [address] 03/02/2025 12:45 PM EDT Procedure visit [facility] [address] [place] [address] Samm Ledesma, ASSISTANT TEACHER [address] [facility] [address] [place] [address] 03/10/2025 12:30 PM EDT Appointment [facility] [place], [place] [id number] 03/10/2025 1:00 PM EDT Appointment [facility] [place] [address] Tacho Echavarria MD [address] [place] [address] [id number] 04/29/2025 9:15 AM EDT Appointment [facility] [place] [address] Batool Celis MD [address] [place] [address] [place] [address] 05/19/2025 2:15 PM EST Office Visit [address] [address] Sin Tran MD [address] [place] [address] 08/12/2025 10:40 AM EST Appointment [facility] Women's Wellness [place] [address] Matt Ulrich MD [address] [place] [address] 254 [place] [address] documented as of this encounter Goals Goal [...] documented as of this encounter Care Teams Auto Collision Repair Instructor Relationship Specialty Start [place] [address] [place] [address] PCP - General 06/21/10 Arlyn Schmidt MD [address] [place] [address] Consulting Physician Internal Medicine-Endocrinology, Diabetes & Metabolism 11/28/20 Tacho Echavarria MD 1 [place] [address] Internal Medicine-Medical Oncology 11/12/23 Matt Ulrich MD 1 [place] [address] Surgery-Surgical Oncology 12/04/23 Eze Brock Pastoral Care 12/13/23 Annette Walker, ARACELI Sales Center Associate 05/13/24 Batool Celis MD [address] [place] [address] [place] [address] Radiation Oncologist Radiology-Radiation Oncology 06/08/24 documented as of this encounter
--- OUTSIDE RECORDS SUMMARY | 2025-02-12 11:12 | XMS_ITS | Encounter Summary ---
Author Organization [place] [address] Care Team Providers Care Cook Taco Name Role Phone Kit Cedeno MD Primary Care Provider [phone] Arlyn Schmidt MD Unavailable [phone] Cheryl Nair RN Unavailable [phone] Tacho Echavarria MD Unavailable [phone] Matt Ulrich MD Unavailable [phone] Hilary Clemens RN Unavailable Unavaila Eze Caro Unavailable Shila Albrecht RN Unavailable Unavail able Cheyanne To RN Unavailable Unavailabl Rayna Wong RN Unavailable Unavailab Shilpa Olivarez RN Unavailable [phone] Tulio Duong RN Unavailable Unavailable Yaquelin Weaver RN Unavailable Unavailable Pam Wang RN Unavailable Unavailable Jazmín Nair RN Unavailable Unavailable Fidel Rainey RN Unavailable Unavailable Cheryl Nair RN Unavailable [phone] Ophelia Lala RN Unavailable Glo Lee RN Unavailable Unavailab Sanam Evans CLOUD SERVICES ARCHITECT Unavailable Unavailable Hilary Clemens RN Unavailable Unavaila Ruthy Clayton RN Unavailable Unavailable Rayna Partida RN Unavailable Unavailab Artur Nelson RN Unavailable Unavailable Annette Walker CLOUD SERVICES ARCHITECT Unavailable [phone] Emmie Crain RN Unavailable Unavailable Brigida Enriquez RN Unavailable Unavailable Fidel Rainey RN Unavailable Unavailable Batool Celis MD Unavailable [phone] Encounter Details Date Type Department Care Team (Late st Contact Info) Description 10/25/2023 Orders Only [facility] [address] [facility] [place] [address] Diane Ellis MD 1 [place] [address] Social History Tobacco Use Types Packs/Day Years Used Date Smoking Tobacco: Never Smokeless Tobacco: Never Alcohol Use Standard Drinks/Week Comments Not Currently 0 (1 standard drink = 0.6 oz pur e alcohol) Overall Financial Resource Strain (CARDIA) Answe r Date Recorded Difficulty of Paying Living Expenses Somewhat augilar rd 05/27/2019 PHQ-2 Answer Date Recorded PHQ-2 [...] Assessment Author No 12/06/2022 2:08 PM EDT Macarnea Marion CCMA * Because of a physical, [...] 11:40 AM EDT Office Visit [facility] [address] [place] [address] [place] [address] [place] [address] 03/02/2025 12:45 PM EDT Procedure visit [facility] [address] [place] [address] Samm Ledesma, AVIONICS SUPERVISOR [address] [place] [address] 03/10/2025 12:30 PM EDT Appointment [facility] [place], [place] [id number] 03/10/2025 1:00 PM EDT Appointment [facility] Oncology [place], [place] [id number] Tacho Echavarria MD [address] [place] [address] [id number] 04/29/2025 9:15 AM EDT Appointment [facility] RAD ONC One [place], [place] [id number] Batool Celis MD 1 [facility] [place] [address] 05/19/2025 2:15 PM EST Office Visit [facility] [address] [place] [address] [address] [place] [address] Sin Tran MD [address] [place] [address] 08/12/2025 10:40 AM EST Appointment [facility] Women's Wellness [place] [facility] [place] [address] Matt Ulrich MD 20 [facility] 254 [place], [place] [id number] documented as of this encounter Goals Goal Patient Goal Type Associated Problems Recent Progress Patient-Stated? Author Blood Pressure < 140/90 Blood Pressure 121/77(2024 2:04 PM EDT) Kit Hsu MD Maintain a healthy diet, exercise regularly and maintain an ideal body weight General No Sanam Julio MA documented as of this encounter Procedures Procedure Name Priority Date/Time Associated Diagnosis Comments NEOGENOMICS HER2 BREAST Routine 10/25/2023 10:44 AM EDT documented in this encounter Results * NEOGENOMICS HER2 BREAST (10/25/2023 10:44 AM EDT) 10/25/2023 10:4 4 AM EDT Narrative [facility] - 11/11/2023 2:42 PM EDT Requesting Provider: KIT Womack Specimen = [id number] us Diane Ellis MD PATHOLOGY ORDERABLES Final Resul t H LAB 1 [place], [place] [id number] documented in this encounter Visit Diagnoses Not on filedocumented in this encounter Additional Health Concerns Infection Onset Date Last Indicated Resolved Time COVID-19 09/04/2024 09/04/2024 09/24/2024 10:1 2 PM EDT documented as of this encounter Care Teams Cook Taco Relationship Specialty [place] [address] [place] [address] PCP - General 06/21/10 Arlyn Schmidt MD [address] [place] [address] Consulting Physician Internal Medicine-Endocrinolog y, Diabetes & Metabolism 11/28/20 Cheryl Nair RN Oncology Nurse Navigator 10/29/2302/05 Tacho Echavarria MD 1 [place], [place] [id number] Internal Medicine-Medical Oncology 11/12/23 Matt Ulrich MD 1 [place] [address] Surgery-Surgical Oncology 12/04/23 Hilary Clemens, RN Registered Nurse Infusion Therapy 12/05/23 12/05/23 Eze Brock Pastoral Care 12/13/23 Shila Albrecht, RN Registered Nurse Infusion Therapy 12/19/23 12/19/23 Cheyanne To, RN Registered Nurse Infusion Therapy 01/16/24 01/16/24 Rayna Partida RN Registered Nurse Infusion Clinic 01/23/24 01/23/24 Shilpa Cline, RN Oncology Nurse Navigator 02/04/2403/09 Tulio Duong, RN Registered Nurse Infusion Therapy 02/06/24 02/06/24 Yaquelin Weaver, RN Registered Nurse 02/13/24 02/13/24 Pam Wang, RN Registered Nurse Infusion Therapy 02/20/24 02/20/24 Jazmín Nair, RN Registered Nurse Infusion Therapy 02/27/24 02/27/24 Fidel Rainey, RN Registered Nurse Infusion Therapy 03/05/24 03/05/24 Cheryl Nair RN Oncology Nurse Navigator 03/25/2412/13 Ophelia Lala, RN Registered Nurse Infusion Therapy 03/27/24 03/27/24 Glo Lee, RN Registered Nurse Infusion Therapy 04/03/24 04/03/24 Sanam Murray, [facility] Bundle Breaker 04/10/24 07/30/24 Hilary Clemens, RN Registered Nurse Infusion Therapy 04/21/24 04/21/24 Ruthy Walker RN Registered Nurse Infusion Therapy 04/24/24 04/24/24 Rayna Partida, RN Registered Nurse Infusion Clinic 05/01/24 05/01/24 Artur Roberts RN Registered Nurse Infusion Therapy 05/07/24 05/07/24 Annette Walker, CLOUD SERVICES ARCHITECT Bundle Breaker 05/13/24 Emmie Crain, RN Registered Nurse Infusion Therapy 05/14/24 05/14/24 Brigida Enriquez, RN Registered Nurse Infusion Clinic 05/21/24 05/21/24 Fidel Rainey, RN Registered Nurse Infusion Therapy 05/28/24 05/28/24 Batool Celis MD [address] [place] [address] [place] [address] Radiation Oncologist Radiology-Radiation Oncology 06/08/24 documented as of this encounter
--- OUTSIDE RECORDS SUMMARY | 2025-02-12 11:12 | XMS_ITS | Encounter Summary ---
Author Organization [place] [address] Care Team Providers Care Backfiller Name Role Phone Chetna Cedeno MD Primary Care Provider [phone] Arlyn Schmidt MD Unavailable [phone] Tacho Echavarria MD Unavailable [phone] Matt Ulrich MD Unavailable [phone] Eze Brock Unavailable Annette Walker Unavailable [phone] Batool Celis MD Unavailable [phone] Reason for Visit * Reason Comments Pharmacy [facility] Encounter Details Date Type Department Care Team (Latest Contact Info) Description 02/02/2025 Specialty Pharmacy [facility] [address] [place] [address] Kevin Chacon PharmD Pharmacy [facility] Social History Tobacco Use Types Packs/Day Years [...] th e electric, gas, oil, or water [email or web address] threatened to shut off services in your [...] often do you attend chur ch or confucianist services? 1 to 4 times per year 11/07/2023 Do you belong to any clubs o r organizations such as mosque groups, unions, fraternal or athletic groups, or [...] Date Recorded PHQ-2 Total Score 5 07/07/2024 [facility] [place] of Occupat ional Health - Occupational Stress [...] health care facility (including now)? No 11/07/2023 [facility] Transportation Answer D ate Recorded [...] documented in this encounter Progress Notes * Kevin Chacon PharmD - 02/02/2025 1:39 PM EDT [facility] Prescription received for Nurtec (75mg). Prescription requires prior authorization. Will complete clinical review. Patient will not need IA if able to fill here (continuation of therapy). * Kevin Chacon PharmD - 02/02/2025 1:39 PM EDT [facility] - Migraine Clinical Review El Cole is a 59 y.o. female. Migraine: Patient was prescribed Rimegepant (Nurtec) 75 mg PO at onset of migraine, max of 1 tabletdaily for continuation of Acute treatment of migraine with or without aura (G43.711). Medication needs loading dose: No Number of migraine days per month: 8-12 Are migraines Chronic or Episodic? Episodic Allergies Allergen Reactions Amoxicillin Hives Cefazolin Hives [...] Other (See Comments) Adhesive Rash Tilactase Diarrhea Risk/ Status: Postmenopausal Test: Preg Test, Ur (Pos/Neg) Date Value 01/26/2015 Neg Lab Results Component Value Date CREATININE 0.85 01/15/2025 BUN 13 01/15/2025 AST 14 01/15/2025 ALT 8 01/15/2025 Current Outpatient Medications - WARNING: List may [...] 1 Capsule by mouth once a week. exemestane Take 25 mg by mouth daily. fluticasone furoate-vilanteroL Inhale 1 Puff into the lungs daily. fluticasone propionate 1 [employer] by Nasal route daily. Aerochamber MV 1 Each by [facility]Non-Drug; Combo Route) route as needed. ketorolac Take 10 mg by mouth once. lidocaine-prilocaine APPLY DIME SIZE AMOUNT TO PORT AREA 30 MINUTES PRIOR TO PORT ACCESS. LORazepam Take 1 Tablet by mouth 2 times daily as needed for Anxiety (or Insomnia). losartan Take 1 Tablet by mouth daily. only if BP elevated MAGIC MOUTHWASH (LIDO/DIPHEN/NYSTAT) ORAL COMPOUND Swish and [...] every 8 hours as needed for Nausea. oxybutynin Take 1 Tablet by mouth daily. promethazine-dextromethorphan Take 5 mL by mouth 3 times daily as needed. No driving Nurtec ODT Dissolve 1 tablet in mouth at migraine onset (Max dose 75 mg/24 hours) rOPINIRole Take 1 Tablet by mouth nightly as needed. for up to 30 days. tiZANidine Take 1 tab nightly for cervicogenic headache and 1/2 tab daily prn for breakthrough pain. DO NOT TAKE AND DRIVE UNABLE TO FIND Fentanyl 500 mcg/ml in pain pump. 60 mcg/day Previous medications utilized: Fremanezumab (Ajovy), Sumatriptan (Imitrex, Sumavel, Onzetra, Zembrace), Topiramate (Topamax, Trokendi XR, Qudexy XR), Ubrogepant (Ubrelvy), and Tramadol Medication being used with prescribed meds: Atogepant (Qulipta), Botox, APAP/diphenhydramine, as needed ketorolac (PO), tizanidine, Compazine, and ondansetron. Does patient have aura? No Has medication overuse headache been considered and potentially offending medications(s) discontinued? Yes Patient has the following contraindications/precautions to triptan use: tongue swelling with sumatriptan Will be used with another CGRP that is for prevention Clinical Impression: clinically appropriate. Kevin Chacon, PharmD Specialty Pharmacist * Chelsea Monson CPhT - 02/02/2025 1:39 PM EDT [facility] Prior [facility]ization [facility] [employer] insurance via [employer] ([employer] [id number]). Will follow up on 02/04. * Annamarie Mark CPhT - 02/02/2025 1:39 PM EDT [facility] Prior Authorization Determination Received notice of PA approval for [facility] . PA approved from 02/02/2025 to 05/05/2025. Patient is able to fill at [facility]. Copay is $0. No answer, left voicemail to call [phone], option 4. Initial assessment not needed for medication. Medication is able to be delivered via [employer]. cell # has mailbox that isn't set up * Aaliyah Decker CPhT - 02/02/2025 1:39 PM EDT Specialty Pharmacy Refill Coordination Note Contacted [place] today regarding refills of Nurtec. Medication to be picked up on 02/04. Copay amount: $0 Spoke with patient. Patient informed of copay. documented in this encounter Plan of Treatment Upcoming Encounters Date Type Department Care Team (Late st Contact Info) Description 03/02/2025 11:40 AM EDT Office Visit [facility] [address] [place] [address] [place] [address] [place] [address] 03/02/2025 12:45 PM EDT Procedure visit [facility] [address] [place] [address] Samm Ledesma APRN [address] [facility] [address] [place] [address] 03/10/2025 12:30 PM EDT Appointment [place] [address] 03/10/2025 1:00 PM EDT Appointment [facility] [place] [address] Tacho Echavarria MD [address] [place] [address] [id number] 04/29/2025 9:15 AM EDT Appointment [place] [address] Batool Celis MD [address] [facility] [place] [address] 05/19/2025 2:15 PM EST Office Visit [facility] [address] [place] [address] Sin Tran MD [address] [place] [address] [place] [address] 08/12/2025 10:40 AM EST Appointment [facility] Women's Wellness [place] One [facility] [place] [address] Matt Ulrich MD [address] [address] documented as of this encounter Goals [...] documented as of this encounter Care Teams Backfiller Relationship Specialty [place] [address] [place] [address] PCP - General 06/21/10 Arlyn Schmidt MD [address] [place], [place] [id number] Consulting Physician Internal Medicine-Endocrinology, Diabetes & Metabolism 11/28/20 Tacho Echavarria MD 1 [place], [place] 2322317 Internal Medicine-Medical Oncology 11/12/23 Matt Ulrich MD 1 [place], [place] [address]31017 Surgery-Surgical Oncology 12/04/23 Eze Brock Pastoral Care 12/13/23 Annette Walker, [employer] Immunologist 05/13/24 Batool Celis MD 1 [facility] CANCER [place], [place] [phone] Radiation Oncologist Radiology-Radiation Oncology 06/08/24 documented as of this encounter
--- OUTSIDE RECORDS SUMMARY | 2025-02-12 11:12 | XMS_ITS | Encounter Summary ---
Author Organization [place] [address] Care Team Providers Care Customer Support Consultant Name Role Phone Chetna Cedeno MD Primary Care Provider [phone] Arlyn Schmidt MD Unavailable [phone] Tacho Echavarria MD Unavailable [phone] Matt Ulrich MD Unavailable [phone] Eze Brock Unavailable Shilpa Cline RN Unavailable [phone] Cheryl Nair RN Unavailable [phone] Ophelia Lala RN Unavailable Glo Lee RN Unavailable Unavailab Sanam Evans CONTINUOUS MINING MACHINE COAL MINER Unavailable Unavailable Hilary Clemens RN Unavailable Unavaila Ruthy Clayton RN Unavailable Unavailable Rayna Partida RN Unavailable Unavailab Artur Nelson RN Unavailable Unavailable Annette Walker CONTINUOUS MINING MACHINE COAL MINER Unavailable [phone] Emmie Crain RN Unavailable Unavailable Brigida Enriquez RN Unavailable Unavailable Fidel Rainey RN Unavailable Unavailable Batool Celis MD Unavailable [phone] Encounter Details Date Type Department Care Team (Late st Contact Info) Description 03/18/2024 Lab Requisition [facility] [place] [address] Provider, Unknown Malignant neoplasm of unspecified site [...] Date Recorded PHQ-2 Total Score 0 11/07/2023 [facility] of Occupat ional Health [...] time in the past 12 m [facility], were you homeless or living in a long term (including now)? No 11/07/2023 Education Answer Date [...] 11:40 AM EDT Office Visit [facility] [address] [place] [address] [place] [address] [place] [address] 03/02/2025 12:45 PM EDT Procedure visit [facility] [address] [facility] [place] [address] Samm Ledesma, SUPERVISOR BLEACH PLANT [address] [facility] [facility] [address] [place] [address] 03/10/2025 12:30 PM EDT Appointment [facility] [place], [place] [id number] 03/10/2025 1:00 PM EDT Appointment [facility] Oncology [place], [place] 5420017 Tacho Echavarria MD [address] [place] [address] [id number] 04/29/2025 9:15 AM EDT Appointment [facility] RAD ONC [place], [place] 6[address] Batool Celis MD [address] [place] [address] CANCER CARE [place], [place] [address]17 05/19/2025 2:15 PM EST Office Visit [facility] [address] [place] [address] [address] [place] [address] Sin Tran MD [address] [place] [address] 08/12/2025 10:40 AM EST Appoint[facility] [place] One [facility] [place] [id number] Matt Ulrich MD [address] [place] [address] [address] [place] [id number] documented as of this encounter Goals Goal [...] EDT) CASE REPORT Surgical Pathology Report Case: [id number] Authorizing Provider: Provider, Unknown Collected: 03/18/2024 1327 Ordering Location: [facility] Received: 03/18/2024 1327 Pathologist: Diane Ellis MD Specimen: Breast, Right, Request for case [id number] slides to [facility]. 05/04/2024 1:26 PM EDT [facility] FINAL DIAGNOSIS Results will be scanned in this case as an addendum. 05/04/2024 1:26 PM EDT [facility] at 1329 EDT EMBEDDED IMAGES 05/04/2024 1:26 PM EDT [facility] ADDENDUM Refer to [facility] Surgical Pathology Report. 05/04/2024 1:26 PM EDT [facility] Addendum electronically signed by Diane Ellis MD on 05/04/2024 at 1326 EDT Tissue RIGHT BREAST STRUCTURE / Unknown 03/18/2024 1:27 PM EDT 03/18/2024 1:27 PM EDT us Unknown Provider PATHOLOGY ORDERABLES Edited Res ult - Final [facility] 1 [place] [address] documented in this encounter Visit Diagnoses Diagnosis Malignant neoplasm of unspecified site of right female breast (HCC) documented in this encounter Additional Health Concerns Infection Onset Date Last Indicated Resolved Time COVID-19 09/04/2024 09/04/2024 09/24/2024 10:1 2 PM EDT Assessment Noted Time PHQ-9 Depression Total Score: 12 024 12:00 PM EDT documented as of this encounter Care Teams Customer Support Consultant Relationship Specialty [place] [address] [place] [address] PCP - General 06/21/10 Arlyn Schmidt MD [facility] [place] [address] Consulting Physician Internal Medicine-Endocrinolog y, Diabetes & Metabolism 11/28/20 Tacho Echavarria MD [address] [place] [address] Internal Medicine-Medical Oncology 11/12/23 Matt Ulrich MD [address] [place] [address] Surgery-Surgical Oncology 12/04/23 Eze Brock Pastoral Care 12/13/23 Shilpa Cline, RN Oncology Nurse Navigator 02/04/2403/09 Cheryl Nair, RN Oncology Nurse Navigator 03/25/2412/13 Ophelia Lala, RAUL Registered Nurse Infusion Therapy 03/27/24 03/27/24 Glo Lee, RN Registered Nurse Infusion Therapy 04/03/24 04/03/24 Sanam Murray, CONTINUOUS MINING MACHINE COAL MINER Roster Clerk 04/10/24 07/30/24 Hilary Clemens, RN Registered Nurse Infusion Therapy 04/21/24 04/21/24 Ruthy Walker RN Registered Nurse Infusion Therapy 04/24/24 04/24/24 Rayna Partida, RN Registered Nurse Infusion Clinic 05/01/24 05/01/24 Artur Roberts RN Registered Nurse Infusion Therapy 05/07/24 05/07/24 Annette Walker, CONTINUOUS MINING MACHINE COAL MINER Roster Clerk 05/13/24 Emmie Crain, RN Registered Nurse Infusion Therapy 05/14/24 05/14/24 Brigida Enriquez, RN Registered Nurse Infusion Clinic 05/21/24 05/21/24 Fidel Rainey, RN Registered Nurse Infusion Therapy 05/28/24 05/28/24 Batool Celis MD 1 [facility] [place] [address] Radiation Oncologist Radiology-Radiation Oncology 06/08/24 documented as of this encounter
--- OUTSIDE RECORDS SUMMARY | 2025-02-12 11:12 | XMS_ITS | Encounter Summary ---
Author Organization [place] [address] Care Team Providers Care Sound Installation Worker Name Role Phone Chetna Cedeno MD Primary Care Provider [phone] Arlyn Schmidt MD Unavailable [phone] Tacho Echavarria MD Unavailable [phone] Matt Ulrich MD Unavailable [phone] Eze Brock Unavailable Annette Walker Unavailable [phone] Batool Celis MD Unavailable [phone] Reason for Visit * Reason Comments Pharmacy Oncology Management Abemaciclib Encounter Details Date Type Department Care Team (Latest Contact Info) Description 02/03/2025 Specialty Pharmacy [facility] [address] [place] [address] Anisa Lozoya CPhT Pharmacy Oncology [...] from your doctor or pharmacy? Never 11/07/2023 [facility] Utilities Answer Date Recorded In the past 12 months has th e electric, gas, oil, or water [employer] threatened to shut off services in your [...] 5 07/07/2024 [facility] [place] of Occupat ional Health - Occupational Stress [...] in a correction (including now)? No 11/07/2023 [facility] IP Transportation Answer D ate Recorded [...] Progress Notes * Anisa Lozoya CPhT - 02/03/2025 11:05 AM EDT Specialty Pharmacy Refill Coordination Note Contacted [facility] today regarding refills of Abemaciclib . Medication to be picked up on 02/04. Copay amount: $0 Spoke with patient. Patient informed of copay. said she is being discharged tomorrow and will fiber picker all her meds. She is unsure of supply left. * Blake Antoine RPH - 02/03/2025 11:05 AM EDT [facility] - Care Plan and Refill Review Refill questions and refill history verified. Last assessment 12/25/24. No reassessment needed at this time. Blake Antoine PharmD Specialty Pharmacist documented in this encounter Plan of Treatment Upcoming Encounters Date Type Department Care Team (Late st Contact Info) Description 03/02/2025 11:40 AM EDT Office Visit [facility] [address] [place] [address] [place] [address] [place] [address] 03/02/2025 12:45 PM EDT Procedure visit [facility] [address] [place] [address] Samm Ledesma, MINERAL SURVEYING TECHNICIAN [address] [facility] [address] [place] [address] 03/10/2025 12:30 PM EDT Appointment [facility] [place], [place] [phone] 03/10/2025 1:00 PM EDT Appointment [facility] [place] [address] Tacho Echavarria MD [address] [place] [address] [id number] 04/29/2025 9:15 AM EDT Appointment [facility] [address] Batool Celis MD [address] [place] [address] [place] [address] 05/19/2025 2:15 PM EST Office Visit [address] [address] Sin Tran MD [address] [place] [address] 08/12/2025 10:40 AM EST Appointment [facility] Women's Well[facility] [place] [address] Matt Ulrich MD [address] [place] [address] [address] [place] [address] documented as of this encounter Goals Goal [...] documented as of this encounter Care Teams Sound Installation Worker Relationship Specialty [place] [address] [place] [address] PCP - General 06/21/10 Arlyn Schmidt MD [address] [place] [address] Consulting Physician Internal Medicine-Endocrinology, Diabetes & Metabolism 11/28/20 Tacho Echavarria MD 1 [place] [address] Internal Medicine-Medical Oncology 11/12/23 Matt Ulrich MD 1 [place] [address] Surgery-Surgical Oncology 12/04/23 Eze Brock Pastoral Care 12/13/23 Aaron Annette, CNA CAREGIVER Board Worker 05/13/24 Batool Celis MD 1 [facility] [place] [address] Radiation Oncologist Radiology-Radiation Oncology 06/08/24 documented as of this encounter
--- OUTSIDE RECORDS SUMMARY | 2025-02-12 11:12 | XMS_ITS | Encounter Summary ---
Author Organization [place] [address] Care Team Providers Care Senior Tax Manager Name Role Phone Chetna Cedeno MD Primary Care Provider [phone] Arlyn Schmidt MD Unavailable [phone] Tacho Echavarria MD Unavailable [phone] Matt Ulrich MD Unavailable [phone] Eze Brock Unavailable Annette Walker BRAND DESIGNER Unavailable [phone] Batool Celis MD Unavailable [phone] Encounter Details Date Type Department Care Team (Late st Contact Info) Description 02/04/2025 Social Work [facility] Cancer Care [facility] [place] [address] Annette Walker, BRAND DESIGNER Social History Tobacco Use Types Packs/Day Years [...] Recorded In the past 12 months has [employer], oil, or water [employer] threatened to shut off services in your [...] a care home (including now)? No 11/07/2023 [facility] IP [...] Progress Notes * Annette Walker MSW - 02/04/2025 1:42 PM EDT 02/04/25 1341 Control Panel Operator Crude Unit Assessment Referred By DT Disease/[place] Gift Manager Assignment Breast cancer Referral Location: [facility] Reason for Referral DT Identified Needs Adjustment to illness;Education/Information;Mental Health;Transportation Social Work Interventions Education/Information;Brief Couseling/Support;Transportation Distress Screening SW Reviewed Yes On this date, ARACELI Spears, TRUST OFFICER met with patient in response to receipt of a distress tool submitted on patients behalf. Patient's distress tool rating was 10 and TRUST OFFICER provided brief counseling/support to Patient. Patient explained she wanting to moved forward with her life but various issues are causing set backs including a recent hospitalization and newly discovered blood clot in her lung. Patient is continuing telehealth therapy with therapist, Jenniffer and although she had initial appointment with [facility] for medication management, she has not follow up with recommended appointment and request to refill medication has been declined. Patient states she had a reaction to the medication prescribed and has been taking medication prescribed by Dr. Echavarria's office for her depression. We discussed need to establish assisted relationship with therapist/medication management provider for her mental health. TRUST OFFICER suggested communication with [facility] regarding side effects and possible alternatives. Patient expresses great relief of being out of the [facility] away from unhealthy relationships but has run into some issues with her new housing. She is working closely with [facility] to move to a lower floor and resolve issues including HVAC issues. She received donated air conditioner from [facility] and [facility] has allowed that unit. TRUST OFFICER provided gas cards to assist Patient with fuel costs associated with long drive to her home. Patient expressed that she is focusing on stabilizing her health, gaining strength, and hopes to engage in a volunteer capacity in her new community soon. No other needs identified at this time. TRUST OFFICER remains available to support as needed. documented in this encounter Plan of Treatment Upcoming Encounters Date Type Department Care Team (Late st Contact Info) Description 03/02/2025 11:40 AM EDT Office Visit [facility] [place] [facility] [address] [place] [address] [place] [address] [place] [address] 03/02/2025 12:45 PM EDT Procedure visit [facility] [address] [facility] [address] [place] [address] Samm Ledesma, SHELLFISH FARMING SUPERVISOR [address] [facility] [address] [place], [place] [id number] 03/10/2025 12:30 PM EDT Appointment [facility] [place], [place] [id number] 03/10/2025 1:00 PM EDT Appointment [facility] [place] [address] Tacho Echavarria MD [address] [place] [address] [id number] 04/29/2025 9:15 AM EDT Appointment [place] [place] [address] Batool Celis MD [address] [place] [address] CANCER CARE [place], [place] [id number] 05/19/2025 2:15 PM EST [facility] [address] [facility] [address] [place] [address] Sin Tran MD [address] [place] [address] 08/12/2025 10:40 AM EST Appointment [facility] Women's Wellness [place] One [facility] [place] [address] Matt Ulrich MD [address] [place] [address] [place] [address] documented as of this encounter Goals Goal [...] as of this encounter Care Teams Senior Tax Manager Relationship Specialty [place] [address] [place] [id number] PCP - General 06/21/10 Arlyn Schmidt MD [address] [place], [place] [id number] Consulting Physician Internal Medicine-Endocrinology, Diabetes & Metabolism 11/28/20 Tacho Echavarria MD 1 [place] [address] Internal Medicine-Medical Oncology 11/12/23 Matt Ulrich MD 1 [place] [address] Surgery-Surgical Oncology 12/04/23 Eze Brock Pastoral Care 12/13/23 Annette Walker, ARACELI Gift Manager 05/13/24 Batool Celis MD 1 [facility] [place] [address] Radiation Oncologist Radiology-Radiation Oncology 06/08/24 documented as of this encounter
--- OUTSIDE RECORDS SUMMARY | 2025-02-12 11:12 | XMS_ITS | Encounter Summary ---
Author Organization [place] [address] Care Team Providers Care Manager Leasing Name Role Phone Kit Cedeno MD Primary Care Provider [phone] Arlyn Schmidt MD Unavailable [phone] Cheryl Nair RN Unavailable [phone] Tacho Echavarria MD Unavailable [phone] Matt Ulrich MD Unavailable [phone] Hilary Clemens RN Unavailable Unavaila Eze Caro Unavailable Shila Albrecht RN Unavailable Unavail able Cheyanne To RN Unavailable Unavailabl Rayna Wong RN Unavailable Unavailab Shilpa Olivarez RN Unavailable [phone] Tulio Duong RN Unavailable Unavailable Yaquelin Weaver RN Unavailable Unavailable Pam Wang RN Unavailable Unavailable Jazmín Nair RN Unavailable Unavailable Fidel Rainey RN Unavailable Unavailable Cheryl Nair RN Unavailable [phone] Ophelia Lala RN Unavailable Glo Lee RN Unavailable Unavailab Sanam Evans FOOD DEMONSTRATOR Unavailable Unavailable Hilary Clemens RN Unavailable Unavaila Ruthy Clayton RN Unavailable Unavailable Rayna Partida RN Unavailable Unavailab Artur Nelson RN Unavailable Unavailable Annette Walker FOOD DEMONSTRATOR Unavailable [phone] Emmie Crain RN Unavailable Unavailable Brigida Enriquez RN Unavailable Unavailable Fidel Rainey RN Unavailable Unavailable Batool Celis MD Unavailable [phone] Encounter Details Date Type Department Care Team (Late st Contact Info) Description 10/25/2023 Orders Only [facility] One [facility] [place] [address] Diane Ellis MD 1 [place] [address] Social History Tobacco Use Types [...] 11:40 AM EDT Office Visit [facility] [address] [place] [address] [place] [address] [place] [address] 03/02/2025 12:45 PM EDT Procedure visit [facility] [address] [facility] [address] [place] [address] Samm Ledesma, CARBON CUTTER [address] [facility] [address] [place] [address] 03/10/2025 12:30 PM EDT Appointment [facility] [place], [place] [id number] 03/10/2025 1:00 PM EDT Appointment [facility] Medical Oncology [place], [place] [id number] Tacho Echavarria MD [address] [place] [id number] 04/29/2025 9:15 AM EDT Appointment [facility] RAD ONC One [place], [place] [id number] Batool Celis MD 1 [facility] [place] [address] 05/19/2025 2:15 PM EST Office Visit [facility] [address] [place] [address] 401 [facility] 1[address] [place] [address] Sin Tran MD [address] [place] [address] 08/12/2025 10:40 AM EST Appointment [facility] Women's Wellness [place] One [facility] [place] [address] Matt Ulrich MD 20 [facility] [address] [place], [place] [address] documented as of this encounter Goals Goal [...] EDT) 10/25/2023 10:4 4 AM EDT Narrative [facility] LAB - 11/01/2023 3:02 PM EDT Requesting Provider: KIT Womack Specimen = [id number] us Diane Ellis MD PATHOLOGY ORDERABLES Final Resul t [facility] 1 [place], [place] [id number] documented in this encounter Visit Diagnoses Not on filedocumented in this encounter Additional Health Concerns Infection Onset Date Last Indicated Resolved Time COVID-19 09/04/2024 09/04/2024 09/24/2024 10:1 2 PM EDT documented as of this encounter Care Teams Manager Leasing Relationship Specialty [place] [address] [place] [address] PCP - General 06/21/10 Arlyn [place] MD [address] [place] [address] Consulting Physician Internal Medicine-Endocrinolog y, Diabetes & Metabolism 11/28/20 Cheryl Nair RN Oncology Nurse Navigator 10/29/2302/05 Tacho Echavarria MD 1 [place], [place] 12[address]17 Internal Medicine-Medical Oncology 11/12/23 Matt Ulrich MD 1 [place], [place] [address] Surgery-Surgical Oncology 12/04/23 Hilary Clemens, RN Registered Nurse Infusion Therapy 12/05/23 12/05/23 Eze Brock Pastoral Care 12/13/23 Shila Albrecht, RN Registered Nurse Infusion Therapy 12/19/23 12/19/23 Cheyanne To, RAUL Registered Nurse Infusion Therapy 01/16/24 01/16/24 Rayna [...] Nurse Infusion Therapy 04/03/24 04/03/24 Sanam Murray, [facility] Water Sander 04/10/24 07/30/24 Hilary Clemens, RN Registered Nurse Infusion Therapy 04/21/24 04/21/24 Ruthy Walker RN Registered Nurse Infusion Therapy 04/24/24 04/24/24 Rayna Partida, RN Registered Nurse Infusion Clinic 05/01/24 05/01/24 Artur Roberts RN Registered Nurse Infusion Therapy 05/07/24 05/07/24 Annette Walker, FOOD DEMONSTRATOR Water Sander 05/13/24 Emmie Crain, RN Registered Nurse Infusion Therapy 05/14/24 05/14/24 Brigida Enriquez, RN Registered Nurse Infusion Clinic 05/21/24 05/21/24 Fidel Rainey, RN Registered Nurse Infusion Therapy 05/28/24 05/28/24 Batool Celis MD [address] [place] [address] [place] [address] Radiation Oncologist Radiology-Radiation Oncology 06/08/24 documented as of this encounter
--- OUTSIDE RECORDS SUMMARY | 2025-02-12 11:12 | XMS_ITS | Encounter Summary ---
Author Organization [place] [address] Care Team Providers Care Shirt Sewer Name Role Phone Kit Cedeno MD Primary Care Provider [phone] Arlyn Schmidt MD Unavailable [phone] Cheryl Nair RN Unavailable [phone] Tacho Echavarria MD Unavailable [phone] Matt Ulrich MD Unavailable [phone] Hilary Clemens RN Unavailable Unavaila Eze Caro Unavailable Shila Albrecht RN Unavailable Unavail able Cheyanne To RN Unavailable Unavailabl Rayna Wong RN Unavailable Unavailab Shilpa Olivarez RN Unavailable [phone] Tulio Duong RN Unavailable Unavailable Yaquelin Weaver RN Unavailable Unavailable Pam Wang RN Unavailable Unavailable Jazmín Nair RN Unavailable Unavailable Fidel Rainey RN Unavailable Unavailable Cheryl Nair RN Unavailable [phone] Ophelia Lala RN Unavailable Gol Lee RN Unavailable Unavailab Sanam Evans DRIER AND PULVERIZER TENDER Unavailable Unavailable Hilary Clemens RN Unavailable Unavaila Ruthy Clayton RN Unavailable Unavailable Rayna Partida RN Unavailable Unavailab Artur Nelson RN Unavailable Unavailable Annette Walker DRIER AND PULVERIZER TENDER Unavailable [phone] Emmie Crain RN Unavailable Unavailable Brigida Enriquez RN Unavailable Unavailable Fidel Rainey RN Unavailable Unavailable Batool Celis MD Unavailable [phone] Encounter Details Date Type Department Care Team (Late st Contact Info) Description 10/25/2023 Orders Only [facility] One [facility] [place] [address] Diane Ellis MD 1 [place] [address] Social History Tobacco Use Types [...] 11:40 AM EDT Office Visit [facility] [address] [place] [address] [place] [address] [place] [address] 03/02/2025 12:45 PM EDT Procedure visit [facility] [address] [facility] [address] [place] [address] Samm Ledesma, ADVERTISING SOLICITOR [address] [facility] [address] [place] [address] 03/10/2025 12:30 PM EDT Appointment [facility] [place], [place] [id number] 03/10/2025 1:00 PM EDT Appointment [facility] Medical Oncology [place], [place] 2442917 Tacho Echavarria MD [address] [place] [address] [id number] 04/29/2025 9:15 AM EDT Appointment [facility] RAD ONC One [place], [place] [id number] Batool Celis MD 1 [facility] [place] [address] 05/19/2025 2:15 PM EST Office Visit [facility] [address] [place] [address] [address] [place] [address] Sin Tran MD [address] [place] [address] 08/12/2025 10:40 AM EST Appointment [facility] Women's Wellness [place] One [facility] [place] [address] Matt Ulrich MD 20 [facility] [address] [place], [place] [address] documented as of this encounter Goals Goal [...] EDT) 10/25/2023 10:4 4 AM EDT Narrative [facility] LAB - 11/06/2023 7:12 PM EDT Requesting Provider: KIT Womack Specimen = [id number] us Diane Ellis MD PATHOLOGY ORDERABLES Final Resul t [facility] 1 [place], [place] [id number] documented in this encounter Visit Diagnoses Not on filedocumented in this encounter Additional Health Concerns Infection Onset Date Last Indicated Resolved Time COVID-19 09/04/2024 09/04/2024 09/24/2024 10:1 2 PM EDT documented as of this encounter Care Teams Shirt Sewer Relationship Specialty [place] [address] [place] [address] PCP - General 06/21/10 Arlyn Schmidt MD [address] [place] [address] Consulting Physician Internal Medicine-Endocrinolog y, Diabetes & Metabolism 11/28/20 Cheryl Nair, RN Oncology Nurse Navigator 10/29/2302/05 Tacho Echavarria MD 1 [place], [place] 17766[address] Internal Medicine-Medical Oncology 11/12/23 Matt Ulrich MD 1 [place] [address] Surgery-Surgical Oncology 12/04/23 Hilary Clemens, RN Registered [...] Nurse Infusion Therapy 04/03/24 04/03/24 Sanam Murray, [facility] Echocardiograph Technician 04/10/24 07/30/24 Hilary Clemens, RN Registered Nurse Infusion Therapy 04/21/24 04/21/24 Ruthy Walker RN Registered Nurse Infusion Therapy 04/24/24 04/24/24 Rayna Partida, RN Registered Nurse Infusion Clinic 05/01/24 05/01/24 Artur Roberts RN Registered Nurse Infusion Therapy 05/07/24 05/07/24 Annette Walker, DRIER AND PULVERIZER TENDER Echocardiograph Technician 05/13/24 Emmie Crain, RN Registered Nurse Infusion Therapy 05/14/24 05/14/24 Brigida Enriquez, RN Registered Nurse Infusion Clinic 05/21/24 05/21/24 Fidel Rainey, RN Registered Nurse Infusion Therapy 05/28/24 05/28/24 Batool Celis MD [address] [place] [address] [place] [address] Radiation Oncologist Radiology-Radiation Oncology 06/08/24 documented as of this encounter
--- OUTSIDE RECORDS SUMMARY | 2025-02-12 11:13 | XMS_ITS | Encounter Summary ---
Author Organization [place] [address] Care Team Providers Care Order Make Up Clerk Name Role Phone Chetna Cedeno MD Primary Care Provider [phone] Arlyn Schmidt MD Unavailable [phone] Tacho Echavarria MD Unavailable [phone] Matt Ulrich MD Unavailable [phone] Eze Brock Unavailable Annette Walker Unavailable [phone] Batool Celis MD Unavailable [phone] Reason for Visit * Reason Onset Date Comments Appointment Needed 02/04/2025 Encounter Details Date Type Department Care Team (Late st Contact Info) Description 02/04/2025 Telephone [facility] [place] [address] Aliya Harden, Clerical Staff Appointment Needed Social History Tobacco Use Types Packs/Day Years [...] th e electric, gas, oil, or water [employer] threatened to shut off services in [...] Date Recorded PHQ-2 Total Score 5 07/07/2024 [facility] Occupat ional Health - Occupational Stress [...] in a residential (including now)? No 11/07/2023 [facility] IP Transportation Answer [...] encounter Miscellaneous Notes * Telephone Encounter - Aliya Harden Clerical Staff - 02/04/2025 12:49 PM EDT Appointment scheduled - patient will check myChart * Telephone Encounter - Aliya Harden Clerical Staff - 02/04/2025 12:49 PM EDT ----- Message from Nurse Simms sent at 02/04/2025 12:37 PM EDT ----- Please schedule f/u with Dr. Ulrich in 6 months to discuss left mastectomy per Naya; patient lives 1.5 hours away and prefers between 10-1:00 and will check My Chart. Fall risk, uses walker. Will not need imaging/ history of right IDC/mastectomy, she is having left screen mammo near her home in February or March. documented in this encounter Plan of Treatment Upcoming Encounters Date Type Department Care Team (Late st Contact Info) Description 03/02/2025 11:40 AM EDT Office Visit [facility] [place] [address] [place] [address] [place] [address] [place] [address] 03/02/2025 12:45 PM EDT Procedure visit [facility] [address] [facility] [address] [place] [address] Samm Ledesma, LASER/ELECTRO OPTICS TECHNICIAN [address] [facility] [address] [place] [id number] 03/10/2025 12:30 PM EDT Appointment [place] [address] 03/10/2025 1:00 PM EDT Appointment [facility] [place] [address] Tacho Echavarria MD [address] [place] [address] [id number] 04/29/2025 9:15 AM EDT Appointment [facility] [place] [address] Batool Celis MD [address] [place] [address] 05/19/2025 2:15 PM EST Office Visit [address] [place] [address] [address] Sin Tran MD [address] [place] [address] 08/12/2025 10:40 AM EST Appointment [facility] Women's Wellness [facility] [place] [address] Matt Ulrich MD [address] [place] [address] 254 [place] [address] documented as of this encounter Goals Goal [...] documented as of this encounter Care Teams Order Make Up Clerk Relationship Specialty Start [place] [address] [place] [address] PCP - General 06/21/10 Arlyn Schmidt MD [address] [place] [address] Consulting Physician Internal Medicine-Endocrinology, Diabetes & Metabolism 11/28/20 Tacho Echavarria MD 1 [place] [address] Internal Medicine-Medical Oncology 11/12/23 Matt Ulrich MD 1 [place] [address] Surgery-Surgical Oncology 12/04/23 Eze Brock Pastoral Care 12/13/23 Jasmyn Walkerica, CARE PROFESSIONAL Entry Level Lab Technician 05/13/24 Batool Celis MD [address] [place] [address] [place] [address] Radiation Oncologist Radiology-Radiation Oncology 06/08/24 documented as of this encounter"
--- OUTSIDE RECORDS SUMMARY | 2025-02-12 11:13 | XMS_ITS | Encounter Summary ---
Author Organization [place] [address] Care Team Providers Care Core Java Engineer Name Role Phone Chetna Cedeno MD Primary Care Provider [phone] Arlyn Schmidt MD Unavailable [phone] Tacho Echavarria MD Unavailable [phone] Matt Ulrich MD Unavailable [phone] Eze Brock Unavailable Annette Walker Unavailable [phone] Batool Celis MD Unavailable [phone] Reason for Visit * Reason Onset Date Comments Symptom Call 02/05/2025 lightheaded / he adache Encounter Details Date Type Department Care Team (Late st Contact Info) Description 02/05/2025 Telephone [facility] [place], [place] [id number] Tacho Echavarria MD [address] [place] [address] [phone] Symptom Call (lightheaded / headache ) Social History Tobacco Use Types Packs/Day [...] Date Recorded PHQ-2 Total Score 5 07/07/2024 [facility] of Occupat ional Health - Occupational Stress [...] in a fpc (including now)? No 11/07/2023 [facility] IP Transportation Answer D ate [...] Telephone Encounter - Yin Velez RN - 02/05/2025 2:50 PM EDT Discussed w/ NIVIA Aretha. Called El, increase fluid intake 64 oz fluid and take Tylenol, if h/a does not improve or worsens should go to ER for further evaluation. She is agreeable to plan. No further questions/concerns. * Telephone Encounter - Yin Velez RN - 02/05/2025 1:11 PM EDT Reports lightheadedness and almost falling today. Reports headache that doesn't feel like a typicalmigraine. Took Nurtec w/o relief. Rates 4/10. Went to ER in [facility] last week r/t diarrhea, K was 2.5 and she was dx w/ blood clot in lungs? I can't see their records but now on Xarelto. No misseddoses. BP 107/66, hr 80. Ok intake- 2 cups of coffee today and 16 oz water. Recommended increasing fluid intake. Reports increased fatigue today as well, having trouble staying awake. Reports face/cheeks appears swollen? No sob/difficulty swallowing. Diarrhea improved from last week. Lives 1.5 hrs away. Msg sent to LEYLA Carias. * Telephone Encounter - Sendy Waddell NA - 02/05/2025 11:47 AM EDT Medical Oncology Clinic Symptom Call: Yes Primary Oncologist: Jericho Diagnoses: Current Treatment: Last date of Tx: Last appt and provider: 02/04/25 Jericho Next scheduled office visit: 03/10/25 Caller reports the patient has the following symptoms: Patient said she feels light headed. Thought she was getting migraine so took nurtec and other medsand is still feeling off and head hurts. Symptoms started (date/time): Started a few weeks ago. Stated clots in lungs and potassium 3.2 Have you been exposed to COVID or tested for COVID within the last 48 hours: no Does the patient have a FEVER/what is it: no Has the patient had any recent surgeries: no Has the patient taken anything to help the symptoms: no MYCHART Photo (Y, N, N/A): yes What Location is the Patient seen at: [facility] Preferred call back number: [phone] Explained to the caller, if this is a medical emergency please call 911 or go to the nearest emergency room. documented in this encounter Plan of Treatment Upcoming Encounters Date Type Department Care Team (Late st Contact Info) Description 03/02/2025 11:40 AM EDT Office Visit [facility] [place] [address] [place] [address] [place] [address] [place] [address] 03/02/2025 12:45 PM EDT Procedure visit [facility] NE[facility] [address] [place] [address] Samm Ledesma, FABRICATION WELDER [address] [place] [address] 03/10/2025 12:30 PM EDT Appointment [place] [address] 03/10/2025 1:00 PM EDT Appointment [facility] [place], [place] [phone] Tacho Echavarria MD [address] [place] [address] [id number] 04/29/2025 9:15 AM EDT Appointment [facility] [address] Batool Celis MD [address] [place] [address] DR CANCER CARE [place], [place] [phone] 05/19/2025 2:15 PM EST Office Visit [address] [address] Sin Tran MD [address] [place] [address] 08/12/2025 10:40 AM EST Appointment [facility] [place] [address] Matt Ulrich MD [address] [place] [address] documented as of this encounter Goals Goal [...] documented as of this encounter Care Teams Core Java Engineer Relationship Specialty [place] [address] [place] [address] PCP - General 06/21/10 Arlyn Schmidt MD [address] [place], [place] [address] Consulting Physician Internal Medicine-Endocrinology, Diabetes & Metabolism 11/28/20 Tacho Echavarria MD 1 [place] [address] Internal Medicine-Medical Oncology 11/12/23 Matt Ulrich MD 1 [place] [address] Surgery-Surgical Oncology 12/04/23 Eze Brock Pastoral Care 12/13/23 Annette Walker MSW Cvt Tech 05/13/24 Batool Celis MD [address] [place] [address] [place] [address] Radiation Oncologist Radiology-Radiation Oncology 06/08/24 documented as of this encounter
--- OUTSIDE RECORDS SUMMARY | 2025-02-12 11:13 | XMS_ITS | Referral Summary ---
Author Organization [facility] Address [address] [place] [address] Phone Care Team Providers Care Grinding Wheel Facer Name Role Phone Chetna Cedeno MD Primary Care Provider [phone] Encounters Date Type Department Care Team Description 01/02/2025 4:26 PM EDT - 01/02/2025 7:27 PM EDT Emergency [facility] Emergency Department [address] [place] [address] Dallin Espinoza MD Heat exhaustion, [...] NITROGEN 16 8 - 26 mg/dL [facility] SODIUM 140 135 - 145 mmol/L [facility] POTASSIUM 3.2(L) 3.6 - 5.1 mmol/L [facility] CHLORIDE 107 98 - 111 mmol/L [facility] CO2 20(L) 21 - 31 mmol/L [facility] GLUCOSE, RANDOM 89 70 - 99 mg/dL [facility] CREATININE 1.06 0.60 - 1.20 mg/dL [facility] ANION GAP 13 4 - 16 mmol/L [facility] CALCIUM 9.0 8.5 - 10.4 mg/dL [facility] ESTIMATED GFR 61 >59 mL/min/1.7 3 m2 [facility] Comment: Estimated GFR was calculated using the CKD-EPI cr (2020) equation refit without race. The equation is recommended by the National Kidney Foundation - [place] Society of Nephrology Task Force. Tested at [facility] [id number] [place] [address] Whole Blood 01/02/2025 5:13 PM EDT 01/02/2025 5:25 PM EDT us Dallin Espinoza MD LAB BLOOD ORDERABLES Final Result [facility] [address] [place] [address] [address] * (ABNORMAL) CBC w/ Diff (01/02/2025 5:13 PM EDT) WBC 7.1 3.6 - 10.5 THOU/mcL [facility] RBC 3.75(L) 3.80 - 5.20 MIL/mcL [facility] HEMOGLOBIN 11.2(L) 12.0 - 15.2 g/dL [facility] HEMATOCRIT 33.6(L) 36 - 46 % [facility] MCV 89.6 82 - 97 fL [facility] MCH 30.0 27 - 33 pg [facility] MCHC 33.5 32 - 36 g/dL [facility] RDW 16.0 12.3 - 17.0 % [facility] PLATELET 206 140 - 375 THOU/mcL [facility] MPV 6.9(L) 7.0 - 11.5 fL [facility] ABS. NEUTROPHIL 3.60 1.80 - 7.70 THOU/mcL [facility] ABS LYMPHS 3.00 1.00 - 4.00 THOU/mcL [facility] ABS MONOS 0.30 0.20 - 0.90 THOU/mcL [facility] ABS EOS 0.10 0.03 - 0.45 THOU/mcL [facility] ABS BASOS 0.10 0.00 - 0.20 THOU/mcL [facility] SEGS 51 % [facility] LYMPHOCYTES 43 % [facility]TH MONOCYTES 4 % [facility] EOSINOPHIL 1 % [facility] BASOPHILS 1 % [facility] Comment:Tested at [facility] [address] [facility] [address] Whole Blood 01/02/2025 5:13 PM EDT 01/02/2025 5:25 PM EDT Dallin Espinoza MD LAB BLOOD ORDERABLES Final Result [facility] [address] [place] [address] [facility] [address] [place] [address] * ECG 12 lead (01/02/2025 4:37 PM [...] QTcF 417 ms TH TRACEMASTER QRS Horizontal Romance -19 deg TH TRACEMASTER QRS AXIS 16 deg TH TRACEMASTER I-40 Horizontal Romance 46 deg TH TRACEMASTER I-40 FRONT AXIS -17 deg TH TRACEMASTER T-40 Horizontal Romance -50 deg TH TRACEMASTER T-40 Front Romance 51 deg TH TRACEMASTER T Horizontal Romance 52 deg TH TRACEMASTER T WAVE AXIS 16 deg TH TRACEMASTER S-T Horizontal Romance 60 deg TH TRACEMASTER S-T Front Romance 24 deg TH TRACEMASTER ECG IMPRESSION - BORDERLINE ECG - TH TRACEMASTER ECG IMPRESSION SR-Sinus rhythm-normal P axis, V-rate 50-99 TH TRACEMASTER ECG IMPRESSION LVHVP-Probable left ventricular hypertrophy-mul tiple LVH criteria TH TRACEMASTER ECGGUID [id number] TH TRACEMASTER 01/02/2025 4:37 PM EDT us Dallin Espinoza MD ECG ORDERABLES Final Resu lt TH TRACEMASTER from Last 3 Months Insurance [facility] MEDICAID Care Teams Grinding Wheel Facer Relationship Specialty Start Date End Date Chetna Cedeno MD [facility] [address] [place] [address] PCP - General Family Medicine 01/02/25
--- OUTSIDE RECORDS SUMMARY | 2025-02-12 11:13 | XMS_ITS | Encounter Summary ---
Author Organization [place] [address] Care Team Providers Care Custodial Officer Name Role Phone Chetna Cedeno MD Primary Care Provider [phone] Arlyn Schmidt MD Unavailable [phone] Tacho Echavarria MD Unavailable [phone] Matt Ulrich MD Unavailable [phone] Eze Brock Unavailable Annette Walker Unavailable [phone] Batool Celis MD Unavailable [phone] Reason for Visit * Reason Onset Date Comments Other 02/03/2025 Pain pump meds Encounter Details Date Type Department Care Team (Late st Contact Info) Description 02/03/2025 Telephone [facility] [address] [address] Sin Tran MD [address] [place] [address] Other (Pain pump meds) Social History Tobacco Use Types Packs/Day Years [...] your doctor or pharmacy? Never 11/07/2023 [facility] Utilities Answer Date Recorded In [...] Date Recorded PHQ-2 Total Score 5 07/07/2024 [facility] of Occupat ional Health - Occupational [...] in a half-way (including now)? No 11/07/2023 [facility] IP Transportation Answer D ate Recorded [...] encounter Miscellaneous Notes * Telephone Encounter - Mikey Nazia - 02/03/2025 12:28 PM EDT Pain pump meds received for fill date 02/10/25 documented in this encounter Plan of Treatment Upcoming Encounters Date Type Department Care Team (Late st Contact Info) Description 03/02/2025 11:40 AM EDT Office Visit [facility] [place] [address] [place] [address] [place] [address] [place] [address] 03/02/2025 12:45 PM EDT Procedure visit [facility] [address] [facility] [address] [place] [address] Samm Ledesma, INSTRUCTIONAL TECHNOLOGY COORDINATOR [address] [place] [address] 03/10/2025 12:30 PM EDT Appointment [facility] [address] 03/10/2025 1:00 PM EDT Appointment [facility] [place] [address] Tacho Echavarria MD [address] [place] [address] 04/29/2025 9:15 AM EDT Appointment [facility] RAD [place]C [place], [place] [id number] Batool Celis MD 1 [facility] [place] [address] 05/19/2025 2:15 PM EST Office Visit [address] [address] Sin Tran MD [address] [place] [address] 08/12/2025 10:40 AM EST Appointment [facility] [place] [id number] Matt Ulrich MD 20 [facility] [address] [place] [id number] documented as of this encounter Goals Goal [...] documented as of this encounter Care Teams Custodial Officer Relationship Specialty [place] [address] [place] [address] PCP - General 06/21/10 Arlny Schmidt MD [address] [place], [place] 47[address] Consulting Physician Internal Medicine-Endocrinology, Diabetes & Metabolism 11/28/20 Tacho Echavarria MD 1 [place] [address] Internal Medicine-Medical Oncology 11/12/23 Matt Ulrich MD 1 [place], [place] [phone] Surgery-Surgical Oncology 12/04/23 Eze Brock Pastoral Care 12/13/23 Annette Walker, ARACELI Barrel Maker 05/13/24 Batool Celis MD 1 [facility] [place], [place] [phone] Radiation Oncologist Radiology-Radiation Oncology 06/08/24 documented as of this encounter
--- OUTSIDE RECORDS SUMMARY | 2025-02-12 11:13 | XMS_ITS | Encounter Summary ---
Author Organization [place] [address] Care Team Providers Care Carpenter Labor Supervisor Name Role Phone Chetna Cedeno MD Primary Care Provider [phone] Arlyn Schmidt MD Unavailable [phone] Tacho Echavarria MD Unavailable [phone] Matt Ulrich MD Unavailable [phone] Eze Brock Unavailable Annette Walker Unavailable Batool Celis MD Unavailable [phone] Reason for Visit * Reason Onset Date Comments Integrative Oncology Referral 02/05/2025 Encounter Details Date Type Department Care Team (Late st Contact Info) Description 02/05/2025 Telephone [facility] INT ONC [place], [place] [phone] Narda Vickers, Clerical Staff Integrative Oncology Referral Social History Tobacco Use Types Packs/Day Years [...] th e electric, gas, oil, or water Y'all threatened to shut off services in your [...] Total Score 5 07/07/2024 [facility] of Occupat ional Health - Occupational Stress [...] any time in the past 12 m [facility], were you homeless or living in a snf (including now)? No 11/07/2023 [facility] IP Transportation Answer D ate Recorded [...] encounter Miscellaneous Notes * Telephone Encounter - Narda Vickers, Clerical Staff - 02/05/2025 11:38 AM EDT Play4test message sent with Integrative Oncology information and newsletter. Narda documented in this encounter Plan of Treatment Upcoming Encounters Date Type Department Care Team (Late st Contact Info) Description 03/02/2025 11:40 AM EDT Office Visit [facility] [address] [place] [address] [place] [address] [place] [address] 03/02/2025 12:45 PM EDT Procedure visit [facility] NE[facility] [address] [place] [address] Samm Ledesma, TIE CUTTER [address] [place] [address] 03/10/2025 12:30 PM EDT Appointment [place] [address] 03/10/2025 1:00 PM EDT Appointment [facility] [place] [address] Tacho Echavarria MD [address] [place] [address] 04/29/2025 9:15 AM EDT Appointment [facility] RAD ONC [place], [place] [phone] Batool Celis MD 1 [facility] [place] [address] 05/19/2025 2:15 PM EST [facility] [address] [facility] 401 [facility] 1D [place] [address] Sin Tran MD [facility] [place] [address] 08/12/2025 10:40 AM EST Appointment [facility] Women's Wellness [place] [facility] [place] [address] Matt Ulrich MD 20 [facility] 254 [place] [address] documented as of this encounter [...] documented as of this encounter Care Teams Carpenter Labor Supervisor Relationship Specialty [place] [address] [place] [address] PCP - General 06/21/10 Arlyn Schmidt MD [address] [place] [address] Consulting Physician Internal Medicine-Endocrinology, Diabetes & Metabolism 11/28/20 Tacho Echavarria MD 1 [place] [address] Internal Medicine-Medical Oncology 11/12/23 Matt Ulrich MD 1 [place] [address] Surgery-Surgical Oncology 12/04/23 Eze Brock Pastoral Care 12/13/23 Annette Walker, ARACELI Loading Machine Operator Helper 05/13/24 Batool Celis MD 1 [facility] [place] [address] Radiation Oncologist Radiology-Radiation Oncology 06/08/24 documented as of this encounter
== END 2025-02-11 23:59 | disposition home or self-care (01) ==
LOC: LAB.DROPOF 02-12 11:02
PROVIDERS: PCP Family Medicine; Visit Provider Family Medicine
DX: E55.9 Vitamin D deficiency, unspecified (principal); E87.6 Hypokalemia
CPT/HCPCS: 80048; 82306

== ENCOUNTER 2025-02-17 12:33 | Outpatient (CLI) | payer MEDICAID, SELFPAY ==
--- OUTSIDE RECORDS SUMMARY | 2025-01-02 16:26 | XMS_ITS | Encounter Summary ---
Author Organization [facility] Address [facility] [place] [address] Phone Care Team Providers Care Hand Inspector Name Role Phone Chetna Cedeno MD Primary Care Provider [phone] Reason for Visit * Reason Comments Heat Exposure Patient arrives via EMS from an event outside, states she was in [facility] and felt lightheaded, went to a [...] - 01/02/2025 7:27 PM EDT Emergency [facility] Emergency Department [address] [place] [id number] [place] [address] [place] [address] Heat exhaustion, unspecified, initial encounter [T67.5XXA] Discharge [...] Care Everywhere. * POTASSIUM CONTENT OF FOODS ([place]) documented in this encounter Medications at Time [...] be directed to the Care Management Departments: [facility] [phone] or [facility] [phone] or [facility] [phone]. documented in this encounter ED Notes * Dallin Espinoza MD - 01/02/2025 4:48 PM EDT Images from the original note were not included. [facility] EMERGENCY DEPARTMENT ED Encounter Arrival Date: 01/02/251624 Meri Cole : 1965 [address] [place] [address] CSN: [id number] GIO: [id number] EMERGENCY DEPARTMENT - GENERAL NOTE CHIEF COMPLAINT Chief Complaint Patient presents with Heat Exposure Patient arrives via EMS from an event outside, states she was in [facility] and felt lightheaded,went to a tent [...] Resource Strain: Low Risk (07/07/2024) Received from [facility] Overall Financial Resource Strain (CARDIA) Difficulty of Paying Living Expenses: Not very hard Food Insecurity: No Food Insecurity (07/07/2024) Received from [facility] Hunger Vital Sign Worried About Running Out of Food in the Last Year: Never true Ran Out of Food in the Last Year: Never true Transportation Needs: No Transportation Needs (07/07/2024) Received from [facility] IP Transportation In the past 12 months, has lack of reliable transportation kept you from medical appointments, meetings, work or from getting things needed for daily living?: No Physical Activity: Insufficiently Active (07/07/2024) Received from [facility] Exercise Vital Sign Days of Exercise per Week: 3 days Minutes of Exercise per Session: 40 min Stress: Stress Concern Present (07/07/2024) Received from [facility] [employer] [place] of Occupational Health - Occupational Stress Questionnaire Feeling of Stress : Rather much Social Connections: Socially Isolated (11/07/2023) Received from [facility] Social Connection and Isolation Panel [NHANES] Frequency of Communication with Friends and Family: Once a week Frequency of Social Gatherings with Friends and Family: Once a week Attends Temple Services: 1 to 4 times per year Active Member of Clubs or Organizations: No Attends Club or Organization Meetings: Never Marital Status: Never Housing Stability: High Risk (11/07/2023) Received from [facility] Housing Stability Vital Sign Unable to Pay [...] 428 ms QTcF 417 ms QRS Horizontal [place] -19 deg QRS AXIS 16 deg I-40 Horizontal [place] 46 deg I-40 FRONT AXIS -17 deg T-40 Horizontal [place] -50 deg T-40 Front [place] 51 deg T Horizontal [place] 52 deg T WAVE AXIS 16 deg S-T Horizontal [place] 60 deg S-T Front [place] 24 deg ECG IMPRESSION - BORDERLINE ECG - ECG IMPRESSION SR-Sinus rhythm-normal P axis, V-rate 50-99 ECG IMPRESSION LVHVP-Probable left ventricular hypertrophy-multiple LVH criteria ECGGUID [id number] CBC w/ Diff Collection Time: 01/02/25 5:13 [...] an event outside, states she was in [facility] and felt lightheaded,went to a tent [...] out of the sun in the heat. [place] dizzy lightheaded. Does feel slightly better after [...] Chetna Cedeno MD Family Medicine As needed [facility] [place] [address] [place] [address] Please note that some or all of this record was generated using voice recognition software. If there are any questions about the content of this document, please contact the author as some errors in wardrobe mistress may have occurred. Dallin Espinoza MD 01/02/25 1837 Dallin Espinoza MD 01/02/25 1848 * Rylie Darby Registered Nurse - 01/02/2025 4:30 PM EDT Triage Note Meri Cole presents to [facility] with complaint(s) of Heat Exposure (Patient arrives via EMS froman event outside, states she was in [facility] and felt lightheaded, went to a [...] (ABNORMAL) BAMP (Na,K,Cl,CO2,Glu,BUN,Creat,Ca) (01/02/2025 5:13 PM EDT) [facility] [address] BLD UREA NITROGEN 16 8 - 26 mg/dL [place] [place] SODIUM 140 135 - 145 mmol/L [facility] [place] POTASSIUM 3.2(L) 3.6 - 5.1 mmol/L [facility] [place] CHLORIDE 107 98 - 111 mmol/L [facility] [place] CO2 20(L) 21 - 31 mmol/L [facility] [place] GLUCOSE, RANDOM 89 70 - 99 mg/dL [facility] [place] CREATININE 1.06 0.60 - 1.20 mg/dL [facility] [place] ANION GAP 13 4 - 16 mmol/L [facility] [place] CALCIUM 9.0 8.5 - 10.4 mg/dL [facility] [place] ESTIMATED GFR 61 >59 mL/min/1.7 3 m2 [facility] [place] Comment: Estimated GFR was calculated using the CKD-EPI cr (2020) equation refit without race. The equation is recommended by the National Kidney Foundation - [place] Society of Nephrology Task Force. Tested at [address] [address] Whole Blood 01/02/2025 5:13 PM EDT 01/02/2025 5:25 PM EDT Dallin Espinoza MD LAB BLOOD ORDERABLES Final Result [facility] [address] [place] [address] [address] * (ABNORMAL) CBC w/ Diff (01/02/2025 5:13 PM EDT) [facility] [address] WBC 7.1 3.6 - 10.5 THOU/mcL [place] [place] RBC 3.75(L) 3.80 - 5.20 MIL/mcL [facility] [place] HEMOGLOBIN 11.2(L) 12.0 - 15.2 g/dL [facility] [place] HEMATOCRIT 33.6(L) 36 - 46 % [facility] [place] MCV 89.6 82 - 97 fL [facility] [place] MCH 30.0 27 - 33 pg [facility] [place] MCHC 33.5 32 - 36 g/dL [facility] [place] RDW 16.0 12.3 - 17.0 % [facility] [place] PLATELET 206 140 - 375 THOU/mcL [facility] [place] MPV 6.9(L) 7.0 - 11.5 fL [facility] [place] ABS. NEUTROPHIL 3.60 1.80 - 7.70 THOU/mcL [facility] [place] ABS LYMPHS 3.00 1.00 - 4.00 THOU/mcL [facility] [place] ABS MONOS 0.30 0.20 - 0.90 THOU/mcL [facility] [place] ABS EOS 0.10 0.03 - 0.45 THOU/mcL [facility] [place] ABS BASOS 0.10 0.00 - 0.20 THOU/mcL [facility] [place] SEGS 51 % [facility] [place] LYMPHOCYTES 43 % CHEMISTR Y NORTH MONOCYTES 4 % [facility] [place] EOSINOPHIL 1 % [facility] [place] BASOPHILS 1 % [facility] [place] Comment:Tested at [facility] [address] [place] [address] Whole Blood 01/02/2025 5:13 PM EDT 01/02/2025 5:25 PM EDT Dallin Espinoza MD LAB BLOOD ORDERABLES Final Result [facility] [address] [place] [address] [address] * ECG 12 lead (01/02/2025 4:37 PM [...] QTcF 417 ms TH TRACEMASTER QRS Horizontal [place] -19 deg TH TRACEMASTER QRS AXIS 16 deg TH TRACEMASTER I-40 Horizontal [place] 46 deg TH TRACEMASTER I-40 FRONT AXIS -17 deg TH TRACEMASTER T-40 Horizontal [place] -50 deg TH TRACEMASTER T-40 Front [place] 51 deg TH TRACEMASTER T Horizontal [place] 52 deg TH TRACEMASTER T WAVE AXIS 16 deg TH TRACEMASTER S-T Horizontal [place] 60 deg TH TRACEMASTER S-T Front [place] 24 deg TH TRACEMASTER ECG IMPRESSION - BORDERLINE ECG - TH TRACEMASTER ECG IMPRESSION SR-Sinus rhythm-normal P axis, V-rate 50-99 TH TRACEMASTER ECG IMPRESSION LVHVP-Probable left ventricular hypertrophy-mul tiple LVH criteria TH TRACEMASTER ECGGUID [id number] TH TRACEMASTER 01/02/2025 4:37 PM EDT Dallin [...] Raymundo) documented in this encounter Care Teams Hand Inspector Relationship Specialty Start Date End Date Chetna Cedeno MD [facility] [address] [place] [address] PCP - General Family Medicine 01/02/25 documented as of this encounter
--- OUTSIDE RECORDS SUMMARY | 2025-01-06 12:56 | XMS_ITS | Encounter Summary ---
Author Organization [place] [address] Care Team Providers Care Lay Out Drafter Name Role Phone Chetna Cedeno MD Primary Care Provider [phone] Arlyn Schmidt MD Unavailable [phone] Tacho Echavarria MD Unavailable [phone] Matt Ulrich MD Unavailable [phone] Eze Brock Unavailable Annette Walker Unavailable [phone] Batool Celis MD Unavailable [phone] Encounter Details Date Type Department Care Team (Latest Contact Info) Description 01/06/2025 12:56 PM EDT - 01/06/2025 1:13 PM EDT Hospital Encounter [facility] [place], [place] [phone] Tacho Echavarria MD [address] [place] [address] [phone] Invasive ductal carcinoma of breast, female, right [...] from your doctor or pharmacy? Never 11/07/2023 [facility] Utilities Answer Date Recorded In the [...] often do you attend chur ch or alevism services? 1 to 4 times per year 11/07/2023 Do you belong to any clubs o r organizations such as judaism groups, unions, fraternal or athletic groups, or [...] Date Recorded PHQ-2 Total Score 5 07/07/2024 [facility] of Occupat ional Health - Occupational [...] any time in the past 12 m [facility], were you homeless or living in a fdc (including now)? No 11/07/2023 [facility] IP Transportation Answer D ate Recorded [...] 4 fluticasone propionate (FLONASE) 50 mcg/actuation Nasl [place], Suspension 1 [place] by Nasal route daily. 1 Each 11 [...] Susp 200ml, Diphenhydramine 170ml, Lidocaine 2% 50ml, Madlonado syrup 30ml) 450 mL 1 12/09/2023 6:05 [...] 11:40 AM EDT Office Visit [facility] [address] [place] [address] [place] [address] [place] [address] 03/02/2025 12:45 PM EDT Procedure visit [facility] NEUROLOG[facility]ECT[facility] [address] [facility] [address] [place] [address] Samm Ledesma APRN [address] [facility] [address] [place] [address] 03/10/2025 12:30 PM EDT Appointment [place] [address] 03/10/2025 1:00 PM EDT Appointment [facility] Medical Oncology [place], [place] [phone] Tacho Echavarria MD [address] [place] [address] [id number] 04/29/2025 9:15 AM EDT Appointment [facility] RAD ONC [place], [place] [phone] Batool Celis MD [address] [place] [address] CANCER CARE [place], [place] [phone] 05/19/2025 2:15 PM EST Office Visit [address] [address] Sin Tran MD [address] [place] [address] 08/12/2025 10:40 AM EST Appointment [facility] [place] [address] Matt Ulrich MD [address] [place], [place] [address] documented as of this encounter Goals Goal [...] documented as of this encounter Care Teams Lay Out Drafter Relationship Specialty [place] [address] [place] [address] PCP - General 06/21/10 Arlyn Schmidt MD [address] [place], [place] [phone] Consulting Physician Internal Medicine-Endocrinology, Diabetes & Metabolism 11/28/20 Tacho Echavarria MD [address] [place] [address] Internal Medicine-Medical Oncology 11/12/23 Matt Ulrich MD 1 [place] [address] Surgery-Surgical Oncology 12/04/23 Eze Brock Pastoral Care 12/13/23 Annette Walker, ARACELI Lens Molding Equipment Operator 05/13/24 Batool Celis MD 1 [facility] [place] [address] Radiation Oncologist Radiology-Radiation Oncology 06/08/24 documented as of this encounter
--- OUTSIDE RECORDS SUMMARY | 2025-01-06 13:14 | XMS_ITS | Encounter Summary ---
Author Organization [place] [address] Care Team Providers Care Casing Builder Name Role Phone Chetna Cedeno MD Primary Care Provider [phone] Arlyn Schmidt MD Unavailable [phone] Tacho Echavarria MD Unavailable [phone] Matt Ulrich MD Unavailable [phone] Eze Brock Unavailable Annette Walker Unavailable [phone] Batool Celis MD Unavailable [phone] Reason for Visit * Reason Comments Follow-up Breast Cancer Encounter Details Date Type Department Care Team (Latest Contact Info) Description 01/06/2025 1:14 PM EDT - 01/06/2025 11:59 PM EDT Hospital Encounter [facility] [place] [address] Tacho Echavarria MD [address] [place] [address] [phone] Invasive ductal carcinoma of breast, female, right [...] from your doctor or pharmacy? Never 11/07/2023 [facility] Utilities Answer Date Recorded In the [...] often do you attend chur ch or orthodoxy services? 1 to 4 times per year 11/07/2023 Do you belong to any clubs o r organizations such as gnosticism groups, unions, fraternal or athletic groups, or [...] Date Recorded PHQ-2 Total Score 5 07/07/2024 [facility] [place] of Occupat ional Health - Occupational Stress [...] time in the past 12 m [facility], were you homeless or living in a mcfp (including now)? No 11/07/2023 [facility] IP Transportation Answer D [...] 4 fluticasone propionate (FLONASE) 50 mcg/actuation Nasl Coy, Suspension 1 Coy by Nasal route daily. 1 Each 4 [...] were not included. Patient: El Cole CSN: [id number] Date of : 1965 Age: 59 y.o. Date of Service: 01/06/2025 HEMATOLOGY/ONCOLOGY FOLLOW UP VISIT Primary Lining Ironer & Oncologist: Tacho Echavarria MD. Patient Care Team: Chetna Cedeno MD as PCP - General Arlyn Schmidt MD as Consulting Physician (Internal Medicine-Endocrinology, Diabetes & Metabolism) Tacho Echavarria MD (Internal Medicine-Medical Oncology) Matt Ulrich MD (Surgery-Surgical Oncology) Eze Brock as Pastoral Care Annette Walker MSW as Floor Sweeper Batool Celis MD as Radiation Oncologist (Radiology-Radiation Oncology) 2nd OPINION [facility] EVAL: [place], [place]: Dr Beata Kebede: [phone] Next of Kin: Daughter Ruthy Man ([phone]) Patient Contact info: [phone] DIAGNOSIS HISTORY DATE OF INITIAL CONSULTATION: 11/14/23; outside 2nd opinion at on 09/23/2024 CURRENT TREATMENT BREAST CA: adjuvant [place]-E regimen: Arimidex 1mg po daily + dose [...] Invasive ductal carcinoma grade 3 ER 92% NJ 55% HER2 Negative HER-2 by FISH NEGATIVE [...] to GI tolerance for 2 yr planned ([place]-E regimen) Stage Clinical Stage IIIB (cT3, cN3a(f), cM0, G3, ER+, NJ+, HER2-) Pathologic Stage ypT3, ypN3a, G3, ER+, NJ+, HER2- Right breast cancer with T3 tumor, [...] CalcPt Dosage Given to Date in Gy 10.46690209 Session Dosage Given in Gy [id number] Reference Point ID LN Boost RP Dosage Given to Date in Gy 10 Session Dosage Given in Gy 1.48551674 Reference Point ID [id number] ISO Dosage Given to Date in Gy 40.11041212 Session Dosage Given in Gy 0.85561427 Plan ID Nd Boost Plan Name Nd [...] GASTRECTOMY ; Surgeon: Marcus Perez MD; Location: [facility] MAIN OR; Service: General IR 2 [...] SACRAL SINGLE LVL 08/03/2022 Sin Tran MD [facility] SPINE CTR IMAGING IR PORT PLACEMENT EQUAL OR > 5 YEARS 11/29/2023 IR PORT PLACEMENT EQUAL OR > 5 YEARS 11/29/2023 Joselito Goodwin MD [facility] IR LUMBAR DISC SURGERY 09/11/2012 LUMBAR LAMINECTOMY & DISCECTOMY L4-5 LEFT ; Surgeon: Hetal Borden MD; MASTECTOMY Right 07/06/2024 Right modified radical mastectomy; Surgeon: Matt Ulrich MD; Location: [facility] MAIN OR; Service:General SPINE SURGERY N/A 01/04/2021 PAIN PUMP PERMANENT IMPLANT; Surgeon: Munir Hilton MD; Location: [facility] MAIN OR; Service: Pain Management THORACIC SPINE SURGERY N/A 02/24/2020 SPINAL CORD STIMULATOR IMPLANT; Surgeon: Munir Hilton MD; Location: [facility] MAIN OR; Service: Pain Management TONSILLECTOMY UPPER GASTROINTESTINAL ENDOSCOPY UPPER GASTROINTESTINAL ENDOSCOPY N/A 01/26/2015 ESOPHAGOGASTRODUODENOSCOPY with biopsy and davis dilation; Surgeon: Stone Cronin MD; Location: [facility] ENDOSCOPY; Service: Endoscopy FAMILY HISTORY Family History [...] op ddAC/Taxane chemo for her high risk ER/NJ positive large RIGHT BREAST Carcinoma. She has [...] having completed adjuvant Radiation, while on the ESSEX- adjuvant therapy treatment approach. Update (01/06/2025): Ms [...] Device fluticasone propionate (FLONASE) 50 mcg/actuation Nasl Coy, Suspension Inhalational Spacing Device (AEROCHAMBER MV) Misc [...] Gran% 0.2 % Lymph Percent 28.1 % Fergus Percent 4.3 % Eos Percent 1.8 % Baso Percent 0.4 % Neut # 3.3 1.6 - 6.1 x10(3)/mcL IMMGRAN# 0.0 0.0 - 0.1 x10(3)/mcL Lymph # 1.4 1.2 - 3.9 x10(3)/mcL Fergus # 0.2 (L) 0.3 - 0.9 x10(3)/mcL [...] G43.719-Chronic migraine without aura, intractable, without status [id number]. COMPARISON: Multiple priors with the latest MRI [...] Performing Provider Shaylee Roque???LOUIE Restrepo CRNA, RN [facility] D[facility] Madelyn Sidhu RN Endoscopy Nurse Aliya Friedman [...] outside facility Neurosurgeon (Dr Benoit Duke at [facility]) and no need for surgical [...] Tacho Echavarria MD Hematology and Medical Oncology [facility] Department [phone] *This note was dictated using voice recognition [...] also performed on this calendar day: d/w Digital Marketing Intern about her care and symptom burden/depression documented in this encounter Plan of Treatment Upcoming Encounters Date Type Department Care Team (Late st Contact Info) Description 03/02/2025 11:40 AM EDT Office Visit [facility] [place] [facility] [address] [place] [address] [place] [address] [place] [address] 03/02/2025 12:45 PM EDT Procedure visit [facility] [address] [place] [address] Samm Ledesma, ASSEMBLER FOR PULLER OVER MACHINE [address] [place] [address] 03/10/2025 12:30 PM EDT Appointment [facility] [place], [place] [id number] 03/10/2025 1:00 PM EDT Appointment [facility] [place] [address] Tacho Echavarria MD [address] [place] [address] [phone] 04/29/2025 9:15 AM EDT Appointment [facility] [place] [address] Batool Celis MD [address] [place] [address] [place] [address] 05/19/2025 2:15 PM EST Office Visit [facility] [address] [place] [address] Sin Tran MD [address] [place] [address] 08/12/2025 10:40 AM EST Appointment [facility] Women's [facility]ness [facility] [place] [address] Matt Ulrich MD [address] [place] [address] [place] [address] documented as of this encounter Goals Goal Patient Goal Type Associated Problems Recent Progress Patient-Stated? Author Blood Pressure < 140/90 Blood Pressure 121/77(02/04 2:04 PM EDT) No Chetna Cedeno MD Breast [facility] On track(2024 11:27 AM EDT) No Jasmin Porter, RAUL Note: Patient acknowledges understanding of new diagnosis, plan of care, available resources and how to contact Nurse Navigator with any future questions or concerns. Breast [facility] Not on track(2024 11:27 AM [...] MISC COMMENT Tiago 01/07/2025 7:35 AM EDT [facility] Blood VENOUS STRUCTURE / Unknown Port / Unknown 01/06/2025 1:13 PM EDT 01/07/2025 7:31 AM EDT us Tacho Echavarria MD HEMATOLOGY ORDERABLES Final Result Performing Organization Address [facility]/ZIP Co de Phone Number [facility] [address] [place] [address] * IRON+TIBC (01/06/2025 1:13 PM EDT) Pathologist [facility] Iron 78 30 - 160 [...] CHEMISTRY ORDERABLES Final Result Performing Organization Address City/[facility]/ZIP Co de Phone Number [facility] [address], [place] [address] * VITAMIN B12/ FOLIC ACID (01/06/2025 1:13 PM EDT) Vitamin B12 305 232 - 1,245 pg/mL 01/06/2025 2:55 PM EDT [facility] [employer] [facility] Folate 15.80 >=4.80 ng/mL 01/06/2025 2:55 PM EDT [facility] [employer] [facility] Blood VENOUS STRUCTURE / Unknown Port / Unknown 01/06/2025 1:13 PM EDT 01/06/2025 1:17 PM EDT Narrative [facility] - 01/06/2025 2:55 PM EDT Ingestion of haroon doses of biotin (>5 mg/day) taken within 8 hours of drawing blood sample can interfere with this immunoassay test. [facility] Radha Echavarria MD CHEMISTRY ORDERABLES Final Result [facility] [address] [facility] , [place] [address] * (ABNORMAL) COMPREHENSIVE METABOLIC PANEL (01/06/2025 1:13 PM EDT) Sodium 140 136 - 145 mmol/L 01/06/2025 1:37 PM EDT [facility] Potassium 3.8 3.5 - 5.0 mmol/L 01/06/2025 1:37 PM EDT [facility] Chloride 108(H) 98 - 107 mmol/L 01/06/2025 1:37 PM EDT [facility] Total CO2 22 22 - 29 mmol/L 01/06/2025 1:37 PM EDT [facility] Anion Gap 10 7 - 16 mmol/L 01/06/2025 1:37 PM EDT [facility] Calcium 9.2 8.6 - 10.4 mg/dL 01/06/2025 1:37 PM EDT [facility] Glucose Lvl 121(H) 70 - 99 mg/dL 01/06/2025 1:37 PM EDT [facility] BUN 16 6 - 20 mg/dL 01/06/2025 1:37 PM EDT [facility] Creatinine 0.83 0.51 - 1.30 mg/dL 01/06/2025 1:37 PM EDT [facility] Albumin 4.0 3.5 - 5.2 gm/dL 01/06/2025 1:37 PM EDT [facility] Total Protein 6.6 6.4 - 8.3 gm/dL 01/06/2025 1:37 PM EDT [facility] Bili Total 0.4 0.2 - 1.3 mg/dL 01/06/2025 1:37 PM EDT [facility] ALT 9 <=41 U/L 01/06/2025 1:37 PM EDT [facility] AST 14 <=40 U/L 01/06/2025 1:37 PM EDT [facility] Alk Phos 127(H) 36 - 123 U/L 01/06/2025 1:37 PM EDT [facility] eGFR (CKD-EPIcr 2020) 82 >=60 mL/min/1.7 3 m2 01/06/2025 1:37 PM EDT [facility] Comment:Estimated GFR was ca lculated using the CKD-EPIcr (2020) equation refit without race. The equation is recommended by the National Kidney Foundation - [place] [employer] of Nephrology Task Force. Blood VENOUS STRUCTURE / Unknown Port / Unknown 01/06/2025 1:13 PM EDT 01/06/2025 1:17 PM EDT Tacho Echavarria MD CHEMISTRY ORDERABLES Final Result [facility] [address] [place] [address] * (ABNORMAL) CBC WITH DIFF (01/06/2025 1:13 PM EDT) WBC 5.1 3.7 - 10.3 x10(3)/mc L 01/06/2025 1:22 PM EDT [facility] RBC 3.61(L) 3.90 - 5.20 x10(6)/mc L 01/06/2025 1:22 PM EDT [facility] Hgb 11.0(L) 11.2 - 15.7 g/dL 01/06/2025 1:22 PM EDT [facility] Hct 33.2(L) 34.0 - 45.0 % 01/06/2025 1:22 PM EDT [facility] MCV 92.0 80.0 - 100.0 fL 01/06/2025 1:22 PM EDT [facility] MCH 30.5 26.0 - 34.0 pg 01/06/2025 1:22 PM EDT [facility] MCHC 33.1 30.7 - 35.5 g/dL 01/06/2025 1:22 PM EDT [facility] RDW 14.5 <=14.9 % 01/06/2025 1:22 PM EDT [facility] Platelet 170 155 - 369 x10(3)/mc L 01/06/2025 1:22 PM EDT [facility] MPV 8.8 8.8 - 12.5 fL 01/06/2025 1:22 PM EDT [facility] Neut # Prelim 3.3 1.6 - 6.1 x10(3)/mc L 01/06/2025 1:22 PM EDT [facility] Comment:Preliminary automate d absolute neutrophil count. Value may change if manual differential is indicated. Neut Percent 65.2 % 01/06/2025 1:22 PM EDT [facility] Comment:Neutrophils equals s egs plus bands Imm Gran% 0.2 % 01/06/2025 1:22 PM EDT [facility] Comment:Automated count of m etamyelocytes, myelocytes and promyelocytes. Lymph Percent 28.1 % 01/06/2025 1:22 PM EDT [facility] Fergus Percent 4.3 % 01/06/2025 1:22 PM EDT [facility] Eos Percent 1.8 % 01/06/2025 1:22 PM EDT [facility] Baso Percent 0.4 % 01/06/2025 1:22 PM EDT [facility] Neut # 3.3 1.6 - 6.1 x10(3)/mc L 01/06/2025 1:22 PM EDT [facility] Comment:Neutrophils equals s egs plus bands IMMGRAN# 0.0 0.0 - 0.1 x10(3)/mc L 01/06/2025 1:22 PM EDT [facility] Comment:Automated count of m etamyelocytes, myelocytes and promyelocytes. An absolute IG <0.1 is reported as 0.0. Lymph # 1.4 1.2 - 3.9 x10(3)/mc L 01/06/2025 1:22 PM EDT [facility] Fergus # 0.2(L) 0.3 - 0.9 x10(3)/mc L 01/06/2025 1:22 PM EDT [facility] Eos# 0.1 0.0 - 0.5 x10(3)/mc L 01/06/2025 1:22 PM EDT [facility] Baso # 0.0 0.0 - 0.1 x10(3)/mc L 01/06/2025 1:22 PM EDT [facility] Blood VENOUS STRUCTURE / Unknown Port / Unknown 01/06/2025 1:13 PM EDT 01/06/2025 1:17 PM EDT us Tacho Echavarria MD HEMATOLOGY ORDERABLES Final Result [facility] [address] [place] [address] * MISCELLANEOUS LAB (01/06/2025 1:13 PM EDT) Pathologist [facility] COMMENT Tiago 01/07/2025 7:34 AM EDT [facility] Blood VENOUS STRUCTURE / Unknown Port / Unknown 01/06/2025 1:13 PM EDT 01/07/2025 7:31 AM EDT us Tacho Echavarria MD HEMATOLOGY ORDERABLES Final Result Performing Organization Address City/[facility]/ZIP Co de Phone Number [facility] [address] [place] [address] documented in this encounter Visit Diagnoses Diagnosis [...] documented as of this encounter Care Teams Casing Builder Relationship Specialty [place] [address] [place] [address] PCP - General 06/21/10 Arlyn Schmidt MD [facility] [place] [address] Consulting Physician Internal Medicine-Endocrinology, Diabetes & Metabolism 11/28/20 Tacho Echavarria MD [address] [place] [address] Internal Medicine-Medical Oncology 11/12/23 Matt Ulrich MD [address] [place] [address] Surgery-Surgical Oncology 12/04/23 Eze Brock Pastoral Care 12/13/23 Annette Walker MSW Floor Sweeper 05/13/24 Batool Celis MD [address] [place] [address] [place] [address] Radiation Oncologist Radiology-Radiation Oncology 06/08/24 documented as of this encounter
--- OUTSIDE RECORDS SUMMARY | 2025-01-13 14:56 | XMS_ITS | Encounter Summary ---
Author Organization [place] [address] Care Team Providers Care Repertoire Manager Name Role Phone Chetna Cedeno MD Primary Care Provider [phone] Arlyn Schmidt MD Unavailable [phone] Tacho Echavarria MD Unavailable [phone] Matt Ulrich MD Unavailable [phone] Eze Brock Unavailable Annette Walker Unavailable [phone] Batool Celis MD Unavailable [phone] Reason for Visit * Physical Therapy (Emergency) - Closed Specialty Diagnoses / Procedures Referred By Contac t Referred To Contact Physical Therapy Diagnoses 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) Chemotherapy follow-up examination Malignant neoplasm of right female breast, unspecified estrogen receptor status, unspecified site of breast (HCC) Port-A-Cath in place Tacho Echavarria MD 1 [place] [address] Phone: tel: fax: Shaunna Workman PT Referral ID Status Reason Start Date Expiration Date V isits Requested Visits Authorized [id number] Closed Specialty Services Required 10/08/2024 01/28/202507 31 Encounter Details Date Type Department Care Team (Latest Contact Info) Description 01/13/2025 2:56 PM EDT - 01/13/2025 11:59 PM EDT Hospital Encounter [facility] Physical Therapy [address] [place] [address] Shaunna Workman PT Discharge Disposition: Home or [...] doctor or pharmacy? Never 11/07/2023 [facility] Utilities Answer Date Recorded In the [...] often do you attend chur ch or muslim services? 1 to 4 times per year 11/07/2023 Do you belong to any clubs o r organizations such as nondenominational groups, unions, fraternal or athletic groups, or [...] Date Recorded PHQ-2 Total Score 5 07/07/20[address] [facility] of Occupat ional Health - Occupational Stress [...] any time in the past 12 m [facility], were you homeless or living in a custodial (including now)? No 11/07/2023 [facility] IP Transportation Answer D ate Recorded [...] 4 fluticasone propionate (FLONASE) 50 mcg/actuation Nasl [place], Suspension 1 [place] by Nasal route daily. 1 Each 11 [...] to walk with no AD by then, [place] MS (but pt states that she was told this may have been a misdiagnosis), currently taking chemo pill, R mastectomy Jun 2024, radiation ended 09/25/24, chronic back issues with sciatica Physician: Jericho ESCOBAR Follow Up: 11/11/24 Evaluation Date: 10/30/24 Reassessment Due: 12/26/24 [facility] [id number] [facility] Secondary Insurance: n/a Insurance Authorization: AMB REFERRAL TO PHYSICAL THERAPY Authorized (10/08/2024-01/28/2025) Visits Requested Visits Authorized Visits Completed Visits Scheduled -- Details Referral ID: [id number] Authorization Status Reason: Received Carrier Authorization Authorization Comments: -- Referred To: Shaunna Workman PT at [facility] PT Referred By: Tacho Echavarria MD at [facility] MED [facility]C, [facility] Creation Date: 10/08/2024 Referral Reasons: Specialty Services [...] other week Needs Assistance: No Understood: Yes 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 pt verbalized understanding of this again. 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 Access Code: [email or web address] URL: [email or web address] Date: 11/11/2024 Prepared by: Romana Bowman Exercises [...] will be Independent with HEP to improve assisted health and reduce risk for injury. indbut [...] increase from 727 feet with RW to 8678-8604 feet with LRAD to improve gait elisha [...] away. Treatments to consist of Therapeutic exercise 56013, Neuromuscular re-education 70295, Manual soft tissue and/or joint mobilization 36034, Patient education, Therapeutic activity 95090, and Gait training 43585. Electronically signed by: Signed: Shaunna Workman PT Date: 01/13/2025 documented in this encounter Plan of Treatment Upcoming Encounters Date Type Department Care Team (Late st Contact Info) Description 03/02/2025 11:40 AM EDT Office Visit [facility] [address] [place] [address] [place] [address] [place] [address] 03/02/2025 12:45 PM EDT Procedure visit [facility] [address] [place] [address] Samm Ledesma APRN [address] [place] [address] 03/10/2025 12:30 PM EDT Appointment [place] [address] 03/10/2025 1:00 PM EDT Appointment [facility] [place] [address] Tacho Echavarria MD [address] [place] [id number] 04/29/2025 9:15 AM EDT Appointment [facility] RAD ONC [place], [place] [phone] Batool Celis MD [address] [place] [address] [place] [address] 05/19/2025 2:15 PM EST Office Visit [address] [address] Sin Tran MD [address] [place] [address] 08/12/2025 10:40 AM EST Appointment [facility] [place] [address] Matt Ulrich MD [address] [place], [place] [phone] documented as of this encounter Goals Goal [...] documented as of this encounter Care Teams Repertoire Manager Relationship Specialty [place] [address] [place] [address] PCP - General 06/21/10 Arlyn Schmidt MD [address] [place] [address] Consulting Physician Internal Medicine-Endocrinology, Diabetes & Metabolism 11/28/20 Tacho Echavarria MD 1 [place], [place] [phone] Internal Medicine-Medical Oncology 11/12/23 Matt Ulrich MD 1 [place], [place] [address] Surgery-Surgical Oncology 12/04/23 Eze Brock Pastoral Care 12/13/23 Annette Walker MSW Television Maintenance Worker 05/13/24 Batool Celis MD 1 [facility] [place] [address] Radiation Oncologist Radiology-Radiation Oncology 06/08/24 documented as of this encounter
--- OUTSIDE RECORDS SUMMARY | 2025-01-15 11:55 | XMS_ITS | Encounter Summary ---
Author Organization [place] [address] Care Team Providers Care Help Desk Rep Name Role Phone Chetna Cedeno MD Primary Care Provider [phone] Arlyn Schmidt MD Unavailable [phone] Tacho Echavarria MD Unavailable [phone] Matt Ulrich MD Unavailable [phone] Eze Brock Unavailable Annette Walker Unavailable [phone] Batool Celis MD Unavailable [phone] Reason for Visit * Physical Therapy (Routine) - Closed Specialty Diagnoses / Procedures Referred By Contac t Referred To Contact Physical Therapy Diagnoses Invasive ductal carcinoma of breast, female, right (HCC) Acquired lymphedema Matt Ulrich MD [address] [facility] [address] [place] [address] Phone: tel: fax: Kylah Lawler PT Referral ID Status Reason Start Date Expiration Date V isits Requested Visits Authorized [id number] Closed Specialty Services Required 09/04/2024 01/18/2025 1 20 Encounter Details Date Type Department Care Team (Latest Contact Info) Description 01/15/2025 11:55 AM EDT - 01/15/2025 1:14 PM EDT Hospital Encounter [facility] Physical Therapy [address] [place] [address] Kylah Lawler, PT Discharge Disposition: Home or [...] from your doctor or pharmacy? Never 11/07/2023 [facility] Utilities Answer Date Recorded In [...] often do you attend chur ch or samaritan services? 1 to 4 times per year 11/07/2023 Do you belong to any clubs o r organizations such as latter-day groups, unions, fraternal or athletic groups, or [...] PHQ-2 Total Score 5 07/07/2024 [facility] of Occupat ional Health - Occupational Stress [...] any time in the past 12 m [facility], were you homeless or living in a half-way (including now)? No 11/07/2023 [facility] IP Transportation Answer D ate Recorded [...] daily. for abdominal cramps 30 Capsule 4 DULoxetine (CYMBALTA) 30 mg Oral Capsule, Delayed Release(E.C.)Shalini cations:Reactive depression Take 1 Capsule by mouth daily. 30 Capsule 1 01/15/2025 2:53 PM EDT 5 fluticasone furoate-vilantero L (BREO ELLIPTA) 200-25 mcg/dose Inhl Disk with DeviceIndications :Mild intermittent asthma, unspecified whether complicated Inhale 1 Puff into the lungs daily. 1 Each 6 4 fluticasone propionate (FLONASE) 50 mcg/actuation Nasl [place], Suspension 1 [place] by Nasal route daily. 1 Each 11 4 Inhalational Spacing Device (AEROCHAMBER MV) Misc Spacer 1 Each by Misc.(Non-Drug; Combo Route) route as needed. 1 Device 0 ketorolac (TORADOL) 10 mg Oral Tablet Take 10 mg by mouth once. 5 lidocaine-priloca ine (EMLA) Top CreamIndications: Invasive ductal carcinoma of breast, female, right (HCC) APPLY DIME SIZE AMOUNT TO PORT AREA 30 MINUTES PRIOR TO PORT ACCESS. 30 g 1 5 LORazepam (ATIVAN) 0.5 mg Oral TabletIndications [...] encounter Progress Notes * Provider, Unknown - 01/15/2025 3:31 PM EDT documented in this encounter Miscellaneous Notes * Plan of Care - Kylah Lawler, PT - 01/15/2025 12:00 PM EDT Physical Therapy Lymphedema Reassessment/Progress Note (Reassessment for dates 11/19/24 to 01/15/25) 01/15/2025 NAME: El Cole : 1965 Visit # / Insurance: ([employer] ELIG EV, 20 VISITS, , ANTHEM IS SHOWING NOT ELIGIBLE AND [employer] IS SHOWING ANTHEM PRIMARY. PATIENT NEEDS TO GET THIS RESOLVED, [employer] Auth [id number] 12 Visits 09/25/24-10/25/24, [employer] Auth [id number] Date Ext 09/25/24-11/24/24 [employer] Auth [id number] DATE extended to 01/18) Onset Date: 08/08/24 Diagnosis: Right JORDAN & UE & Chest Lymphedema Initial Eval Date: 09/25/24 Precautions: Hx CA Follow up: [facility], 01/26/25 Medication changes: None Reassessment Date: 02/14/2525 FOTO Date: 02/14/25 Time in/Out: 1203/1415 Pain Scale: 7/10 right upper arm Subjective: Pt states that she can only use the pump 15-20 minutes at a time - she states that her hand gets squeezed & that the posterior upper arm gets squeezed as well. Pt did not notify vendor about thisbecause she now lives 1 [place]2 hours away. It pinches me really bad right in here & it squeezes my hand again. I use it as long as I can Pt is still settling into her new home & has been using her arm more so is thinking that may be why she is hurting more Objective: Right JORDAN stretches prior to MLD [...] Self MLD handout issued, with instruction: Yes AROM (Right): Flex 0-105 Abd 0-44 Date: 10/23/24 11/19/24 01/15/25 09/25/2024 09/25/2024 Girth Measurements (cm) Right Right Right Right Left Metacarpals 19.4 19.5 19.7 19.3 19.6 Diagonal Palm 21.3 20.5 20.4 20.1 21.0 1st IPJ 6.5 6.5 6.4 6.3 6.2 2nd DIP 5.2 5.2 4.8 5.1 5.1 2nd PIP 6.7 6.2 6.3 6.1 6.0 3rd DIP 5.5 5.5 6.4 5.5 5.3 3rd PIP 6.5 6.2 6.1 6.1 6.1 4th DIP 4.8 4.7 4.5 4.6 4.8 4th PIP 5.4 5.8 5.4 5.2 NT - ring 5th DIP 4.3 4.3 4.2 4.1 4.3 5th PIP 5.2 5.2 5.2 5.1 5.4 Wrist 15.5 15.5 15.0 15.4 16.0 2 above 16.9 17.2 17.0 17.2 17.5 4 above 21.0 20.6 21.1 20.9 21.6 6 above 25.1 25.0 25.0 25.0 24.5 8 above 27.0 27.0 26.9 27.0 27.7 Elbow 27.4 27.9 26.6 27.9 28.2 2 above 31.9 30.7 31.6 32.4 33.6 4 above 34.7 34.3 33.9 35.6 35.2 6 above 37.2 36.0 36.5 35.7 36.8 Axilla Circumference (cm): 98.8 Chest/Breast Circumference (cm): Has prosthesis in so not taken FOTO: 40 PSFS: Laundry 5/10, Take dogs out 5/10, Dishes 5/10 Steps to lymphedema prevention: Independent HEP: Independent Self MLD: Independent as able - having trouble with home pump Additional comments: Sent email to pump vendor & shared response with pt. Advised pt to con't with self care & to contact PT in the future if needed Manual Therapy: 60 min Therex/Measure: 12 min Total Timed Treatment: 72 min Total Treatment Time: 72 min Charges: MT x 4 TE x 1 Assessment: ROM & girth are con't to be about the same - little progress made since last reassessment &this was the case at last reassessment. Not sure that PT is helping & pt is limited with her ability to attend PT on a regular basis. Hopefully pump vendor can work with pt to get the pump more function. Pt needs to con't with stretching at home as well. Short Term Goals (set for 2 weeks) Initial 09/25/2024 Updated Measure 10/23/24 Updated Measure 11/19/24 Updated Measure 01/15/25 Status (Met/Not Met) Patient will be independent with HEP in order to promote long-term health and reduce risk for injury. 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 Goals: (set for 6 weeks) Patient will demonstrate independence with compression application to decrease lymphedema progression Reviewed with pt Independent Independent Independent Met Patient will be independent with self MLD to decrease lymphedema progression H/o issued, referral to [facility] for home pump Independent as able, waiting on home pump Independent but struggling with home pump Independent but struggling with home pump Partially met Patient will present with reduction in girth measurements by 0.5 cm to increase functional use of the affected extremity Measurements as above Measurements as above Measurements as above Measurementsas above Not met Improve PSFS scores by 2 points to show overall improvement with function Laundry 4/10 Take dog out 4/10 Dishes 3/10 Laundry 6/10 Take dog out 6/10 Dishes 6/10 Laundry 5/10 Take dog out 5/10 Dishes 5/10 Laundry 5/10 Take dog out 5/10 Dishes 5/10 Partially met Plan: Discharge to self care due to lack of improvement Kylah Lawler, PT 01/15/2025 documented in this encounter Plan of Treatment Upcoming Encounters Date Type Department Care Team (Late st Contact Info) Description 03/02/2025 11:40 AM EDT Office Visit [facility] [place] [facility] [address] [place] [address] [place] [address] [place] [address] 03/02/2025 12:45 PM EDT Procedure visit [facility] [address] [place] [address] Samm Ledesma, SENIOR SVP [address] [place] [address] 03/10/2025 12:30 PM EDT Appointment [facility] [place], [place] [id number] 03/10/2025 1:00 PM EDT [facility]ointment [facility] [place], [place] [id number] Tacho Echavarria MD [address] [place] [address] [id number] 04/29/2025 9:15 AM EDT Appointment [facility] [place] [address] Batool Celis MD [address] [place] [address] CANCER CARE [place], [place] [id number] 05/19/2025 2:15 PM EST Office Visit [facility] [address] [facility] [address] [place] [address] Sin Tran MD [address] [place] [address] 08/12/2025 10:40 AM EST Appointment [facility] Women's Wellness [facility] [place] [address] Matt Ulrich MD [address] [place] [address] [address] [place] [address] documented as of this encounter Goals Goal Patient Goal Type Associated Problems Recent Progress Patient-Stated? Author Blood Pressure < 140/90 Blood Pressure 121/77(02/04 2:04 PM EDT) No Chetna Cedeno MD Breast Health Breast Health On track(2024 11:27 AM EDT) No Jasmin Porter, RN Note: Patient acknowledges understanding of new [...] documented as of this encounter Care Teams Help Desk Rep Relationship Specialty Start [place] [address] [place] [address] PCP - General 06/21/10 Arlyn Schmidt MD [address] [place] [address] Consulting Physician Internal Medicine-Endocrinology, Diabetes & Metabolism 11/28/20 Tacho Echavarria MD 1 [place] [address] Internal Medicine-Medical Oncology 11/12/23 Matt Ulrich MD [address] [facility] [place] [address] Surgery-Surgical Oncology 12/04/23 Eze Brock Pastoral Care 12/13/23 Annette Walker, [facility] Enterprise Security Architect 05/13/24 Batool Celis MD [address] [facility] [place] [address] Radiation Oncologist Radiology-Radiation Oncology 06/08/24 documented as of this encounter
--- OUTSIDE RECORDS SUMMARY | 2025-01-15 13:15 | XMS_ITS | Encounter Summary ---
Author Organization [place] [address] Care Team Providers Care Single Stayer Operator Name Role Phone Chetna Cedeno MD Primary Care Provider [phone] Arlyn Schmidt MD Unavailable [phone] Tacho Echavarria MD Unavailable [phone] Matt Ulrich MD Unavailable [phone] Eze Brock Unavailable Annette Walker Unavailable [phone] Batool Celis MD Unavailable [phone] Encounter Details Date Type Department Care Team (Latest Contact Info) Description 01/15/2025 1:15 PM EDT - 01/15/2025 1:29 PM EDT Hospital Encounter [facility] [place], [place] [phone] Tacho Echavarria MD [address] [place] [address] [phone] Invasive ductal carcinoma of breast, female, right [...] from your doctor or pharmacy? Never 11/07/2023 [facility] Utilities Answer Date Recorded In the [...] any clubs o r organizations such as hoahaoism groups, unions, fraternal or athletic groups, or [...] Date Recorded PHQ-2 Total Score 5 07/07/2024 [facility] Occupat ional Health - Occupational Stress [...] any time in the past 12 m [facility], were you homeless or living in a care home (including now)? No [facility]/07[facility]2023 [facility] IP Transportation Answer [...] 4 fluticasone propionate (FLONASE) 50 mcg/actuation Nasl [place], Suspension 1 [place] by Nasal route daily. 1 Each 11 [...] 11:40 AM EDT Office Visit [facility] [address] [address] [place] [address] [place] [address] 03/02/2025 12:45 PM EDT Procedure visit [facility] [address] [facility] [address] [place] [address] Samm Ledesma APRN [address] [facility] [address] [place] [address] 03/10/2025 12:30 PM EDT Appointment [facility] [place], [place] [phone] 03/10/2025 1:00 PM EDT Appointment [facility] Oncology [place], [place] [phone] Tacho Echavarria MD [address] [place] [address] [phone] 04/29/2025 9:15 AM EDT Appointment [place] [address] Batool Celis MD [address] [place] [address] [place] [address] 05/19/2025 2:15 PM EST Office Visit [facility] [address] [place] [address] [address] [place] [address] Sin Tran MD [address] [place] [address] 08/12/2025 10:40 AM EST Appointment [facility] Women's Wellness [facility] [place] [phone] Matt Ulrich MD [address] [place] [address] [address] [place] [address] documented as of this encounter [...] maintain an ideal body weight General No Saanm Julio MA documented as of this encounter [...] - 145 mmol/L 01/15/2025 2:05 PM EDT [facility] Potassium 4.0 3.5 - 5.0 mmol/L 01/15/2025 2:05 PM EDT [facility] Chloride 107 98 - 107 mmol/L 01/15/2025 2:05 PM EDT [facility] Total CO2 25 22 - 29 mmol/L 01/15/2025 2:05 PM EDT [facility] Anion Gap 8 7 - 16 mmol/L 01/15/2025 2:05 PM EDT [facility] Calcium 9.3 8.6 - 10.4 mg/dL 01/15/2025 2:05 PM EDT [facility] Glucose Lvl 88 70 - 99 mg/dL 01/15/2025 2:05 PM EDT [facility] BUN 13 6 - 20 mg/dL 01/15/2025 2:05 PM EDT [facility] Creatinine 0.85 0.51 - 1.30 mg/dL 01/15/2025 2:05 PM EDT [facility] Albumin 4.0 3.5 - 5.2 gm/dL 01/15/2025 2:05 PM EDT [facility] Total Protein 6.7 6.4 - 8.3 gm/dL 01/15/2025 2:05 PM EDT [facility] Bili Total 0.3 0.2 - 1.3 mg/dL 01/15/2025 2:05 PM EDT [facility] ALT 8 <=41 U/L 01/15/2025 2:05 PM EDT [facility] AST 14 <=40 U/L 01/15/2025 2:05 PM EDT [facility] Alk Phos 124(H) 36 - 123 U/L 01/15/2025 2:05 PM EDT [facility] eGFR (CKD-EPIcr 2020) 79 >=60 mL/min/1.7 3 m2 01/15/2025 2:05 PM EDT [facility] Comment:Estimated GFR was ca lculated using the CKD-EPIcr (2020) equation refit without race. The equation is recommended by the National Kidney Foundation - [place] Society of Nephrology Task Force. Blood VENOUS BLOOD / Unknown Venipuncture / Unknown 01/15/2025 1:41 PM EDT 01/15/2025 1:44 PM EDT us Heydi Sorensen APRN CHEMISTRY ORDERABLES Final Res ult [facility] 1 [place] [address] * (ABNORMAL) CBC WITH DIFF (01/15/2025 1:41 PM EDT) WBC 4.5 3.7 - 10.3 x10(3)/mc L 01/15/2025 1:49 PM EDT [facility] RBC 3.40(L) 3.90 - 5.20 x10(6)/mc L 01/15/2025 1:49 PM EDT [facility] Hgb 10.3(L) 11.2 - 15.7 g/dL 01/15/2025 1:49 PM EDT [facility] Hct 31.7(L) 34.0 - 45.0 % 01/15/2025 1:49 PM EDT [facility] MCV 93.2 80.0 - 100.0 fL 01/15/2025 1:49 PM EDT [facility] MCH 30.3 26.0 - 34.0 pg 01/15/2025 1:49 PM EDT [facility] MCHC 32.5 30.7 - 35.5 g/dL 01/15/2025 1:49 PM EDT [facility] RDW 14.7 <=14.9 % 01/15/2025 1:49 PM EDT [facility] Platelet 165 155 - 369 x10(3)/mc L 01/15/2025 1:49 PM EDT [facility] MPV 8.4(L) 8.8 - 12.5 fL 01/15/2025 1:49 PM EDT [facility] Neut # Prelim 2.9 1.6 - 6.1 x10(3)/mc L 01/15/2025 1:49 PM EDT [facility] Comment:Preliminary automate d absolute neutrophil count. Value may change if manual differential is indicated. Neut Percent 64.2 % 01/15/2025 1:49 PM EDT [facility] Comment:Neutrophils equals s egs plus bands Imm Gran% 0.2 % 01/15/2025 1:49 PM EDT [facility] Comment:Automated count of m etamyelocytes, myelocytes and promyelocytes. Lymph Percent 28.3 % 01/15/2025 1:49 PM EDT [facility] [place] Percent 5.3 % 01/15/2025 1:49 PM EDT [facility] Eos Percent 1.3 % 01/15/2025 1:49 PM EDT [facility] Baso Percent 0.7 % 01/15/2025 1:49 PM EDT [facility] Neut # 2.9 1.6 - 6.1 x10(3)/mc L 01/15/2025 1:49 PM EDT [facility] Comment:Neutrophils equals s egs plus bands IMMGRAN# 0.0 0.0 - 0.1 x10(3)/mc L 01/15/2025 1:49 PM EDT [facility] Comment:Automated count of m etamyelocytes, myelocytes and promyelocytes. An absolute IG <0.1 is reported as 0.0. Lymph # 1.3 1.2 - 3.9 x10(3)/ L 01/15/2025 1:49 PM EDT [facility] [place] # 0.2(L) 0.3 - 0.9 x10(3)/ L 01/15/2025 1:49 PM EDT [facility] Eos# 0.1 0.0 - 0.5 x10(3)/ L 01/15/2025 1:49 PM EDT [facility] Baso # 0.0 0.0 - 0.1 x10(3)/ L 01/15/2025 1:49 PM EDT [facility] Blood VENOUS BLOOD / Unknown Venipuncture / Unknown 01/15/2025 1:41 PM EDT 01/15/2025 1:44 PM EDT us Heydi Sorensen APRN HEMATOLOGY ORDERABLES Final Re sult [facility] 1 [place] [phone] documented in this encounter Visit Diagnoses Diagnosis [...] documented as of this encounter Care Teams Single Stayer Operator Relationship Specialty [place] [address] [place] [address] PCP - General 06/21/10 Arlyn Schmidt MD [address] [place] [address] Consulting Physician Internal Medicine-Endocrinology, Diabetes & Metabolism 11/28/20 Tacho Echavarria MD 1 [place] [address] Internal Medicine-Medical Oncology 11/12/23 Matt Ulrich MD 1 [place], [place] [phone] Surgery-Surgical Oncology 12/04/23 Eze Brock Pastoral Care 12/13/23 Annette Walker, ARACELI Auto Fleet Maintenance Manager 05/13/24 Batool Celis MD 1 [facility] [place] [address] Radiation Oncologist Radiology-Radiation Oncology 06/08/24 documented as of this encounter
--- OUTSIDE RECORDS SUMMARY | 2025-01-15 13:30 | XMS_ITS | Encounter Summary ---
Author Organization [place] [address] Care Team Providers Care Resistance Welding Machine Operator Name Role Phone Chetna Cedeno MD Primary Care Provider [phone] Arlyn Schmidt MD Unavailable [phone] Tacho Echavarria MD Unavailable [phone] Matt Ulrich MD Unavailable [phone] Eze Brock Unavailable Annette Walker Unavailable [phone] Batool Celis MD Unavailable [phone] Reason for Visit * Reason Comments Follow-up Breast Cancer Invasive ductal carc inoma of breast, female, right Encounter Details Date Type Department Care Team (Latest Contact Info) Description 01/15/2025 1:30 PM EDT - 01/15/2025 11:59 PM EDT Hospital Encounter [facility] Medical Oncology [place], [place] [id number] Tacho Echavarria MD [address] [place] [address] [phone] Jeanette Smith APRN 1 [place], [place] [phone] Hot flashes related to aromatase inhibitor therapy (Primary Dx); Vitamin D deficiency Discharge Disposition: Home or Self Care Social [...] or pharmacy? Never 11/07/[address] [facility] Utilities Answer Date Recorded In the past 12 months has e [employer], gas, oil, or water [employer] threatened to shut off services in your [...] often do you attend chur ch or rastafari services? 1 to 4 times per year 11/07/2023 Do you belong to any clubs o r organizations such as bahai groups, unions, fraternal or athletic groups, or [...] Date Recorded PHQ-2 Total Score 5 07/07/2024 [facility] [facility] Occupat ional Health - Occupational Stress [...] a skilled nursing (including now)? No 11/07/2023 [facility] IP Transportation Answer D ate Recorded [...] Sign Reading Time Taken Comments Blood Pressure 129/95 01/15/2025 2:00 PM EDT Pulse 68 01/15/2025 2:00 PM EDT Temperature 36.5 C (97.7 F) 01/15/2025 2:00 PM EDT Respiratory Rate 17 01/15/2025 2:00 PM EDT Oxygen Saturation 97% 01/15/2025 2:00 PM EDT Inhaled Oxygen Concentration - - Weight 86.3 kg (190 lb 4.8 oz) 01/15/2025 2:00 P M EDT Height 160 cm (5' 3 ) 01/15/2025 2:00 PM EDT Body Mass Index 33.71 01/15/2025 2:00 PM EDT documented in this encounter Functional [...] Capsule 1 01/15/2025 2:53 PM EDT 5 ergocalciferol (VITAMIN D) 1,250 mcg (50,000 unit) Oral CapsuleIndication s:Vitamin D deficiency Take 1 Capsule by mouth once a week. 12 Capsule 01/15/2025 2:53 PM EDT 5 fluticasone furoate-vilantero L (BREO ELLIPTA) 200-25 mcg/dose Inhl Disk with DeviceIndications :Mild intermittent asthma, unspecified whether complicated Inhale 1 Puff into the lungs daily. 1 Each 6 4 fluticasone propionate (FLONASE) 50 mcg/actuation Nasl [place], Suspension 1 [place] by Nasal route daily. 1 Each 4 Inhalational Spacing Device (AEROCHAMBER MV) Misc Spacer 1 Each by [facility]Non-Drug; Combo Route) route as needed. 1 Device [...] needed for Nausea. 60 Tablet 1 5 oxybutynin (DITROPAN-XL) 5 mg Oral Tablet Extended Rel 24 hrIndications:Hot flashes related to aromatase inhibitor therapy Take 1 Tablet by mouth daily. 30 Tablet 01/15/2025 2:53 PM EDT 5 promethazine-dext romethorphan (PROMETHAZINE-DM) 6.25-15 mg/5 mL [...] Refills Last Filled Start Date End Date ergocalciferol (VITAMIN D) 1,250 mcg (50,000 unit) Oral CapsuleIndications :Vitamin D deficiency Take 1 Capsule by mouth once a week. 12 Capsule 01/15/2025 2:53 PM EDT 01/15/2025 oxybutynin (DITROPAN-XL) 5 mg Oral Tablet Extended Rel 24 hrIndications:Hot flashes related to aromatase inhibitor therapy Take 1 Tablet by mouth daily. 30 Tablet 01/15/2025 2:53 PM EDT 01/15/2025 documented in this encounter Discharge Disposition Disposition Code Departure Means Destination Home or Self Care documented in this encounter Plan of Treatment Upcoming Encounters Date Type Department Care Team (Late st Contact Info) Description 03/02/2025 11:40 AM EDT Office Visit [facility] [address] [place] [address] [place] [address] [place] [address] 03/02/2025 12:45 PM EDT Procedure visit [facility] [address] [place] [address] Samm Ledesma, PARTY PLAN SALES HOST/HOSTESS [address] [facility] 100 [place] [address] 03/10/2025 12:30 PM EDT Appointment [facility] [place], [place] [phone] 03/10/2025 1:00 PM EDT [facility]ointment [facility] [place] [address] Tacho Echavarria MD [address] [place] [address] [phone] 04/29/2025 9:15 AM EDT Appointment [facility] RAD ONC [place], [place] [phone] Batool Celis MD [address] [place] [address] [place] [address] 05/19/2025 2:15 PM EST Office Visit [facility] [address] [place] [address] Sin Tran MD [address] [place] [address] 08/12/2025 10:40 AM EST Appointment [facility] Women's Wellness [place] [address] Matt Ulrich MD [address] [place] [address] 254 [place], [place] [phone] documented as of this encounter Goals Goal [...] Not on track(2024 11:27 AM EDT) Jasmin Rodriguez, RAUL Note: Patient will be compliant with monthly SBE and is aware of who to contact for any unusual or concerning findings. Maintain a healthy diet, exercise regularly and maintain an ideal body weight General No Sanam Julio MA documented as of this encounter Visit Diagnoses Diagnosis Hot flashes related to aromatase inhibitor therapy- Primary [place] Vitamin D deficiency Unspecified vitamin D deficiency documented in this encounter Discontinued Medications Medication Sig Discontinue Reason Start Date End Da te ergocalciferol (VITAMIN D) 1,250 mcg (50,000 unit) Oral CapsuleIndications:Vitam in D deficiency Take 1 Capsule by mouth once a week. Reorder 06/10/2024 01/15/2025 documented as of this encounter Historical Medications * This list may reflect changes made after this encounter. ketorolac (TORADOL) 10 mg Oral Tablet Take 10 mg by mouth once. 12/08/2024 exemestane (AROMASIN) 25 mg Oral Tablet Take 25 mg by mouth daily. 10/12/2024 02/08/2025 added in this encounter Additional Health Concerns Assessment Noted Time PHQ-9 Depression Total Score: 17 024 8:39 AM EST PHQ-2 Depression Total Score: 5 07/07/20 24 8:39 AM EST documented as of this encounter Care Teams Resistance Welding Machine Operator Relationship Specialty [place] [address] [place] [address] PCP - General 06/21/10 Arlyn Schmidt MD [address] [place] [address] Consulting Physician Internal Medicine-Endocrinology, Diabetes & Metabolism 11/28/20 Tacho Echavarria MD 1 [place] [address] Internal Medicine-Medical Oncology 11/12/23 Matt Ulrich MD 1 [place] [address] Surgery-Surgical Oncology 12/04/23 Eze Brock Pastoral Care 12/13/23 Annette Walker, SANDWICH MACHINE OPERATOR Wood Model Maker 05/13/24 Batool Ceils MD 1 [facility] [place] [address] Radiation Oncologist Radiology-Radiation Oncology 06/08/24 documented as of this encounter
--- OUTSIDE RECORDS SUMMARY | 2025-02-02 11:20 | XMS_ITS | Encounter Summary ---
Author [place] [address] Care Team Providers Care Surveillance Sensor Officer Name Role Phone Chetna Cedeno MD Primary Care Provider [phone] Arlyn Schmidt MD Unavailable [phone] Tacho Echavarria MD Unavailable [phone] Matt Ulrich MD Unavailable [phone] Eze Brock Unavailable Annette Walker Unavailable [phone] Batool Celis MD Unavailable [phone] Encounter Details Date Type Department Care Team (Late st Contact Info) Description 02/02/2025 11:20 AM EDT Telemedicine [facility] [address] [facility] [address] [place] [address] Samm Ledesma, PHOTOGRAPH EDITOR [address] [place] [address] Chronic migraine without aura, intractable, with status [...] from your doctor or pharmacy? Never 11/07/2023 [facility] Utilities Answer Date Recorded In [...] often do you attend chur ch or temple services? 1 to 4 times per year [...] Total Score 5 07/07/2024 [facility] - Occupational [...] any time in the past 12 m [facility], were you homeless or living in a half-way (including now)? No 11/07/2023 [facility] IP Transportation Answer D ate [...] dose 75 mg/24 hours) 8 Tablet 5 02/04/2025 4:14 PM EDT 02/02/2025 atogepant 60 mg Oral Tablet Take 1 Tablet by mouth daily. 30 Tablet 5 02/04/2025 4:14 PM EDT 02/02/2025 documented in this encounter [...] follows with oncology and surgical oncology at [place]. She has had more numbness, tingling, pain [...] elevated potassium, diarrhea in the lungs at [facility]. Allergies: allergy list reviewed and accurate PMHx: [...] by mouth 3 times daily. for abdominal Capsule 0 DULoxetine (CYMBALTA) 30 mg Oral [...] 6 fluticasone propionate (FLONASE) 50 mcg/actuation Nasl [place], Suspension 1 [place] by Nasal route daily. 1 Each 11 [...] level: High school graduate Occupational History Employer: [employer] Tobacco Use Smoking status: Never Passive exposure: [...] true Transportation Needs: No Transportation Needs (07/07/2024) [facility] IP Transportation In the past 12 months, has lack of reliable transportation kept you from medical appointments, meetings, work or from getting things needed for daily living?: No Physical Activity: Insufficiently Active (07/07/2024) Exercise Vital Sign Days of Exercise per Week: 3 days Minutes of Exercise per Session: 40 min Stress: Stress Concern Present (07/07/2024) [place] of Occupational Health - Occupational Stress Questionnaire Feeling of Stress : Rather much Social Connections: Socially Isolated (11/07/2023) Social Connection and Isolation Panel [NHANES] Frequency of Communication with Friends and Family: Once a week Frequency of Social Gatherings with Friends and Family: Once a week Attends Congregational Services: 1 to 4 times per year Active Member of Clubs or Organizations: No Attends Club or Organization Meetings: Never Marital Status: Never Intimate Partner Violence: Not At Risk (11/07/2023) Humiliation, Afraid, Rape, and Kick questionnaire Fear of Current or Ex-Partner: No Emotionally Abused: No Physically Abused: No Sexually Abused: No Housing Stability: No Transportation Needs (02/24/2024) Received from [facility] Yearly Questionnaire Do you need any assistance [...] a video visit does not replace a hrtx-km-hozq exam and further service may be necessary. I advised the patient that we are conducting his/her video visit through the office in a private space onour secure network and this video visit is being conducted in accordance with [facility] telehealth/video visit regulations. Patient had no [...] AM EDT Office Visit [facility] [address] [place] [address] [place] [address] [place] [address] 03/02/2025 12:45 PM EDT Procedure visit [facility] [address] [place], [place] [id number] Samm Ledesma APRN [address] [place], [place] [id number] 03/10/2025 12:30 PM EDT Appointment [facility] [place], [place] [id number] 03/10/2025 1:00 PM EDT [facility]ointment [facility] [place] [address] Tacho Echavarria MD [address] [place] [id number] 04/29/2025 9:15 AM EDT Appointment [place] [address] Batool Celis MD [address] [place] [address] [place] [address] 05/19/2025 2:15 PM EST Office Visit [facility] [place] [address] [facility] [address] [place] [address] Sin Tran MD [facility] [place] [address] 08/12/2025 10:40 AM EST Appointment [facility] Women's Wellness [place] [facility] [place] [id number] Matt Ulrich MD [address] [place] [address] DR V[place] [address] documented as of this encounter Goals Goal Patient Goal Type Associated Problems Recent Progress Patient-Stated? Author Blood Pressure < 140/90 Blood Pressure 121/77(02/04 2:04 PM EDT) No Chetna Cedeno MD Breast [facility] Breast Health On track(2024 11:27 AM EDT) No Jasmin Porter, RAUL Note: Patient acknowledges understanding of new diagnosis, plan of care, available resources and how to contact Nurse Navigator with any future questions or concerns. Breast [facility] Breast Health Not on track(2024 11:27 [...] documented as of this encounter Care Teams Surveillance Sensor Officer Relationship Specialty [place] [address] [place] [id number] PCP - General 06/21/10 Arlyn Schmidt MD [address] [place], [place] [id number] Consulting Physician Internal Medicine-Endocrinology, Diabetes & Metabolism 11/28/20 Tacho Echavarria MD 1 [place] [address] Internal Medicine-Medical Oncology 11/12/23 Matt Ulrich MD 1 [place], [place] [id number] Surgery-Surgical Oncology 12/04/23 Eze Brock Pastoral Care 12/13/23 Annette Walker MSW Press Operator Automatic 05/13/24 Batool Celis MD 1 [facility] [place] [address] Radiation Oncologist Radiology-Radiation Oncology 06/08/24 documented as of this encounter
--- OUTSIDE RECORDS SUMMARY | 2025-02-04 11:00 | XMS_ITS | Encounter Summary ---
Author Organization [place] [address] Care Team Providers Care Pleat Patternmaker Name Role Phone Chetna Cedeno MD Primary Care Provider [phone] Arlyn Schmidt MD Unavailable [phone] Tacho Echavarria MD Unavailable [phone] Matt Ulrich MD Unavailable [phone] Eze Brock Unavailable Annette Walker Unavailable [phone] Batool Celis MD Unavailable [phone] Reason for Referral * Consultation (Routine) - Pending Review Specialty Diagnoses / Procedures Referred By Contac t Referred To Contact Diagnoses Invasive ductal carcinoma of breast, female, right (HCC) Procedures [place] OFFICE/OUTPATIENT NEW MODERATE MDM 45 MINUTES Naya García PA-C [address] [place] [address] Phone: tel: fax: Referral ID Status Reason Start Date Expiration Date V isits Requested Visits Authorized [id number] Pending Review 02/04/2025 02/04/2026 1 1 Question Answer Patient Status In Treatment - Survivorship visit today/not new diagnosis Reason for referral? Survivorship * Mammography (Routine) - Pending Review Specialty Diagnoses / Procedures Referred By Van butler Referred To Contact Radiology Diagnoses Encounter for screening mammogram for breast cancer Procedures MM MAMMO DIGITAL STEPHANE SCREEN LEFT Naya García PA-C [address] [place] [address] [address] [place] [id number] Phone: tel: fax: Referral ID Status Reason Start Date Expiration Date V isits Requested Visits Authorized [id number] Pending Review 02/04/2025 02/04/2027 1 1 Reason for Visit * Reason Comments Follow-up Survivorship Encounter Details Date Type Department Care Team (Latest Contact Info) Description 02/04/2025 11:00 AM EDT - 02/04/2025 1:47 PM EDT Hospital Encounter [facility] [place] [address] Tacho Echavarria MD [address] [place] [address] Naya García PA-C [address] [place] [address] [address] [place] [address] Invasive ductal carcinoma of breast, female, right [...] Date Recorded PHQ-2 Total Score 5 07/07/2024 [facility] - Occupational Stress Questionnaire Answer Date [...] any time in the past 12 m [facility], were you homeless or living in a halfway (including now)? No 11/07/2023 [facility] IP Transportation Answer D ate Recorded [...] 4 fluticasone propionate (FLONASE) 50 mcg/actuation Nasl [place], Suspension 1 [place] by Nasal route daily. 1 Each 11 [...] back pain. Family Hx updated. Discharged from [facility] yesterday, states had a blood clot [...] Bra fits ok. She was recently in [facility] and diagnosed with PE. On blood thinner. [...] cancer support group GENETICS/FAMILY HISTORY: Genetics Negative (Sk[employer] [place] Hereditary Cancer 67-gene panel). No new family [...] Invasive ductal carcinoma, grade 3 ER 80%, WA 11%, Her2 negative B. Breast, right, 5:00 Invasive ductal carcinoma grade 3 ER 92%, WA 55%, Her2 negative 11/11/2023 - Consult Initial [...] to GI tolerance for 2 yr planned ([place] regimen) 10/2024 - changed to Aromasin d/t [...] Stage IIIB (cT3, cN3a(f), cM0, G3, ER+, WA+, HER2-) Pathologic Stage ypT3, ypN3a, G3, ER+, WA+, HER2- 02/04/2025 - Other Naya García PA-C [...] Stage IIIB (cT3, cN3a(f), cM0, G3, ER+, WA+, HER2-) - Unsigned - Pathologic stage from 07/06/2024: ypT3, ypN3a, G3, ER+, WA+, HER2- - Unsigned RECENT IMAGING: Right MTX [...] by mouth 3 times daily. for abdominal [id number] Capsule 0 DULoxetine (CYMBALTA) 30 mg Oral [...] 6 fluticasone propionate (FLONASE) 50 mcg/actuation Nasl [place], Suspension 1 [place] by Nasal route daily. 1 Each 11 [...] GASTRECTOMY ; Surgeon: Marcus Perez MD; Location: [facility] MAIN OR; Service: General IR 2 LEVEL [...] SACRAL SINGLE LVL 08/03/2022 Sin Tran MD [facility] SPINE CTR IMAGING IR PORT PLACEMENT EQUAL OR > 5 YEARS 11/29/2023 IR PORT PLACEMENT EQUAL OR > 5 YEARS 11/29/2023 Joselito Goodwin MD [facility] IR LUMBAR DISC SURGERY 09/11/2012 LUMBAR LAMINECTOMY & DISCECTOMY L4-5 LEFT ; Surgeon: Hetal Borden MD; MASTECTOMY Right 07/06/2024 Right modified radical mastectomy; Surgeon: Matt Ulrich MD; Location: [facility] MAIN OR; Service:General SPINE SURGERY N/A 01/04/2021 PAIN PUMP PERMANENT IMPLANT; Surgeon: Munir Hilton MD; Location: [facility] MAIN OR; Service: Pain Management THORACIC SPINE SURGERY N/A 02/24/2020 SPINAL CORD STIMULATOR IMPLANT; Surgeon: Munir Hilton MD; Location: [facility] MAIN OR; Service: Pain Management TONSILLECTOMY UPPER GASTROINTESTINAL ENDOSCOPY UPPER GASTROINTESTINAL ENDOSCOPY N/A 01/26/2015 ESOPHAGOGASTRODUODENOSCOPY with biopsy and davis dilation; Surgeon: Stone Cronin MD; Location: [facility]; Service: Endoscopy Allergies Allergen Reactions Amoxicillin [...] level: High school graduate Occupational History Employer: [employer] Tobacco Use Smoking status: Never Passive exposure: [...] true Transportation Needs: No Transportation Needs (07/07/2024) [facility] IP Transportation In the past 12 months, has lack of reliable transportation kept you from medical appointments, meetings, work or from getting things needed for daily living?: No Physical Activity: Insufficiently Active (07/07/2024) Exercise Vital Sign Days of Exercise per Week: 3 days Minutes of Exercise per Session: 40 min Stress: Stress Concern Present (07/07/2024) [employer] - Occupational Stress Questionnaire Feeling of Stress : Rather much Social Connections: Socially Isolated (11/07/2023) Social Connection and Isolation Panel [NHANES] Frequency of Communication with Friends and Family: Once a week Frequency of Social Gatherings with Friends and Family: Once a week Attends Sabianism Services: 1 to 4 times per year Active Member of Clubs or Organizations: No Attends Club or Organization Meetings: Never Marital Status: Never Intimate Partner Violence: Not At Risk (11/07/2023) Humiliation, Afraid, Rape, and Kick questionnaire Fear of Current or Ex-Partner: No Emotionally Abused: No Physically Abused: No Sexually Abused: No Housing Stability: No Transportation Needs (02/24/2024) Received from [facility] Yearly Questionnaire Do you need any [...] of this patient. Naya García PA-C Breast [facility] Total time approx. 50 minutes, including review of notes, [id number] interaction, and documentation. Reviewed past pathology and [...] to access video: Lymphatic Massage YouTube Video [email or web address] Discuss DEXA scan with medical oncology, your last in our system was on 12/29/20. Breast Health Nurse Contact - Report new changes by calling the Breast Health Nurse Line at [phone]. Please remember the nurse checks voice mail [...] Desiree The number to our Boutique is [phone]. You may call to set up an [...] off all the clothes above your waist. imaging science professor front of a mirror in a room [...] circles with your fingers. For the first mentasta, press lightly. Forthe second mentasta, press harder. For the third mentasta, press even harder. Keep making circles with [...] breast in the same way. Sit or recycling coordinator the shower or tub. With soapy water [...] 12/10/2008 Document Revised: 11/29/2016 Document Reviewed: 05/13/2016 [employer] Interactive Patient Education ?? 2018 [employer] It is best not to drink [...] almonds. Get enough vitamin D - recommend 2774-2568 IU/day Vitamin D is the most essential [...] AM EDT Office Visit SEP Timoteo MERRITT [address] [place] [address] [place] [address] [place] [address] 03/02/2025 12:45 PM EDT Procedure visit [facility] [address] [place] [address] Samm Ledesma APRN [address] [place] [address] 03/10/2025 12:30 PM EDT Appointment [facility] [address] [place], [place] [phone] 03/10/2025 1:00 PM EDT Appointment [facility] [place] [address] Tacho Echavarria MD [address] [place] [address] 04/29/2025 9:15 AM EDT Appointment [place] [address] Batool Celis MD [address] [place] [address] [place] [address] 05/19/2025 2:15 PM EST Office Visit [address] [address] Sin Tran MD [address] [place] [address] 08/12/2025 10:40 AM EST Appointment [facility] [place] [address] Matt Ulrich MD [address] [place] [address] [address] [phone] Scheduled Orders Name Type Priority Associated Diagnoses [...] any future questions or concerns. Breast [facility] Breast Health Not on track(2024 [...] documented as of this encounter Care Teams Pleat Patternmaker Relationship Specialty [place] [address] [place] [address] PCP - General 06/21/10 Arlyn Schmidt MD [address] [place] [address] Consulting Physician Internal Medicine-Endocrinology, Diabetes & Metabolism 11/28/20 Tacho Echavarria MD [address] [place] [address] [id number] Internal Medicine-Medical Oncology 11/12/23 Matt Ulrich MD 1 [place] [address] Surgery-Surgical Oncology 12/04/23 Eze Brock Pastoral Care 12/13/23 Annette Walker MSW Commercial Food Instructor 05/13/24 Batool Celis MD 1 [facility] [place] [address] Radiation Oncologist Radiology-Radiation Oncology 06/08/24 documented as of this encounter
--- OUTSIDE RECORDS SUMMARY | 2025-02-04 13:48 | XMS_ITS | Encounter Summary ---
Author Organization [place] [address] Care Team Providers Care Medical Office Professional Instructor Name Role Phone Chetna Cedeno MD Primary Care Provider [phone] Arlyn Schmidt MD Unavailable [phone] Tacho Echavarria MD Unavailable [phone] Matt Ulrich MD Unavailable [phone] Eze Brock Unavailable Annette Walker Unavailable [phone] Batool Celis MD Unavailable [phone] Encounter Details Date Type Department Care Team (Latest Contact Info) Description 02/04/2025 1:48 PM EDT - 02/04/2025 2:02 PM EDT Hospital Encounter [facility] [place], [place] [id number] Tacho Echavarria MD [address] [place] [address] [phone] Invasive ductal carcinoma of breast, female, right [...] from your doctor or pharmacy? Never 11/07/2023 [facility] Utilities Answer Date Recorded In the [...] Recorded PHQ-2 Total Score 5 07/07/2024 [facility] - [...] any time in the past 12 [facility], were you homeless or living in a senior care (including now)? No 11/07[facility] IP Transportation Answer [...] 4 fluticasone propionate (FLONASE) 50 mcg/actuation Nasl [place], Suspension 1 [place] by Nasal route daily. 1 Each 11 [...] AM EDT Office Visit [facility] [address] [place] [address] [place] [address] [place] [address] 03/02/2025 12:45 PM EDT Procedure visit [facility] [address] [place] [address] [id number] Samm Ledesma, SURGICAL ASST [address] [place], [place] [phone] 03/10/2025 12:30 PM EDT Appointment [facility] [place], [place] [id number] 03/10/2025 1:00 PM EDT [facility]ointment [facility] [place] [address] Tacho Echavarria MD [address] [place] [address] 04/29/2025 9:15 AM EDT Appointment [place] [place] [address] Batool Celis MD [address] [place] [address] [place] [address] 05/19/2025 2:15 PM EST Office Visit [facility] [address] [address] [address] [place] [address] Sin Tran MD [address] [place] [address] 08/12/2025 10:40 AM EST Appointment [facility] [place] [facility] Emilee ZORAIDA Smith [address] Matt Ulrich MD [address] [place] [address] M[place]ORAIDA CORREA [address] documented as of this encounter Goals Goal Patient Goal Type Associated Problems Recent Progress Patient-Stated? Author Blood Pressure < 140/90 Blood Pressure 121/77(02/04 2:04 PM EDT) No Chetna Cedeno MD Breast [facility] Breast Health On track(2024 11:27 AM EDT) No Jasmin Porter, RAUL Note: Patient acknowledges understanding of new diagnosis, plan of care, available resources and how to contact Nurse Navigator with any future questions or concerns. Breast [facility] Breast Health Not on track(2024 11:27 AM EDT) No Jasmin Porter, RAUL Note: Patient will be compliant with monthly SBE and is aware of who to contact for any unusual or concerning findings. Breast [facility] Breast Health On track(2024 11:27 AM EDT) [...] B12/ FOLIC ACID (02/04/2025 2:03 PM EDT) [facility] Vitamin B12 271 232 - 1,245 pg/mL 02/04/2025 4:31 PM EDT [facility] Folate 6.16 >=4.80 ng/mL 02/04/2025 4:31 PM EDT [facility] Blood VENOUS BLOOD / Unknown Venipuncture / Unknown 02/04/2025 2:03 PM EDT 02/04/2025 2:03 PM EDT Narrative PREFERRED [facility] - 02/04/2025 4:31 PM EDT Ingestion of haroon doses of biotin (>5 mg/day) taken within 8 hours of drawing blood sample can interfere with this immunoassay test. [facility] Radha Echavarria MD CHEMISTRY ORDERABLES Final Result [facility] [address] [facility] , [place] [address] * (ABNORMAL) CBC WITH DIFF (02/04/2025 2:03 PM EDT) [facility] WBC 8.1 3.7 - 10.3 x10(3)/mc L 02/04/2025 2:07 PM EDT [facility] RBC 2.95(L) 3.90 - 5.20 x10(6)/mc L 02/04/2025 2:07 PM EDT [facility] Hgb 9.4(L) 11.2 - 15.7 g/dL 02/04/2025 2:07 PM EDT [facility] Hct 28.1(L) 34.0 - 45.0 % 02/04/2025 2:07 PM EDT [facility] MCV 95.3 80.0 - 100.0 fL 02/04/2025 2:07 PM EDT [facility] MCH 31.9 26.0 - 34.0 pg 02/04/2025 2:07 PM EDT [facility] MCHC 33.5 30.7 - 35.5 g/dL 02/04/2025 2:07 PM EDT [facility] RDW 15.0(H) <=14.9 % 02/04/2025 2:07 PM EDT [facility] Platelet 163 155 - 369 x10(3)/mc L 02/04/2025 2:07 PM EDT [facility] MPV 8.8 8.8 - 12.5 fL 02/04/2025 2:07 PM EDT [facility] Neut # Prelim 5.6 1.6 - 6.1 x10(3)/mc L 02/04/2025 2:07 PM EDT [facility] Comment:Preliminary automate d absolute neutrophil count. Value may change if manual differential is indicated. Neut Percent 68.4 % 02/04/2025 2:07 PM EDT [facility] Comment:Neutrophils equals s egs plus bands Imm Gran% 0.2 % 02/04/2025 2:07 PM EDT [facility] Comment:Automated count of m etamyelocytes, myelocytes and promyelocytes. Lymph Percent 23.4 % 02/04/2025 2:07 PM EDT [facility] [place] Percent 5.7 % 02/04/2025 2:07 PM EDT [facility] Eos Percent 2.1 % 02/04/2025 2:07 PM EDT [facility] Baso Percent 0.2 % 02/04/2025 2:07 PM EDT [facility] Neut # 5.6 1.6 - 6.1 x10(3)/mc L 02/04/2025 2:07 PM EDT [facility] Comment:Neutrophils equals s egs plus bands IMMGRAN# 0.0 0.0 - 0.1 x10(3)/mc L 02/04/2025 2:07 PM EDT [facility] Comment:Automated count of m etamyelocytes, myelocytes and promyelocytes. An absolute IG <0.1 is reported as 0.0. Lymph # 1.9 1.2 - 3.9 x10(3)/mc L 02/04/2025 2:07 PM EDT [facility] [place] # 0.5 0.3 - 0.9 x10(3)/mc L 02/04/2025 2:07 PM EDT [facility] Eos# 0.2 0.0 - 0.5 x10(3)/mc L 02/04/2025 2:07 PM EDT [facility] Baso # 0.0 0.0 - 0.1 x10(3)/mc L 02/04/2025 2:07 PM EDT [facility] Blood VENOUS BLOOD / Unknown Venipuncture / Unknown 02/04/2025 2:03 PM EDT 02/04/2025 2:03 PM EDT us Tacho Echavarria MD HEMATOLOGY ORDERABLES Final Result Performing Organization Address City/[facility]/ZIP Co de Phone Number [facility] [address] [place] [address] * IRON+TIBC (02/04/2025 2:02 PM EDT) [facility] Iron 82 30 - 160 mcg/dL [...] CHEMISTRY ORDERABLES Final Result Performing Organization Address City/[facility]/ZIP Co de Phone Number [facility] [address] [place] [phone] [facility] [address] [facility] [place] [phone] * (ABNORMAL) COMPREHENSIVE METABOLIC PANEL (02/04/2025 2:02 PM EDT) [facility] Sodium 142 136 - 145 mmol/L 02/04/2025 2:28 PM EDT [facility] Potassium 3.3(L) 3.5 - 5.0 mmol/L 02/04/2025 2:28 PM EDT [facility] Chloride 108(H) 98 - 107 mmol/L 02/04/2025 2:28 PM EDT [facility] Total CO2 19(L) 22 - 29 mmol/L 02/04/2025 2:28 PM EDT [facility] Anion Gap 15 7 - 16 mmol/L 02/04/2025 2:28 PM EDT [facility] Calcium 8.6 8.6 - 10.4 mg/dL 02/04/2025 2:28 PM EDT [facility] Glucose Lvl 134(H) 70 - 99 mg/dL 02/04/2025 2:28 PM EDT [facility] BUN 12 6 - 20 mg/dL 02/04/2025 2:28 PM EDT [facility] Creatinine 0.78 0.51 - 1.30 mg/dL 02/04/2025 2:28 PM EDT [facility] Albumin 3.8 3.5 - 5.2 gm/dL 02/04/2025 2:28 PM EDT [facility] Total Protein 6.0(L) 6.4 - 8.3 gm/dL 02/04/2025 2:28 PM EDT [facility] Bili Total 0.3 0.2 - 1.3 mg/dL 02/04/2025 2:28 PM EDT [facility] ALT 8 <=41 U/L 02/04/2025 2:28 PM EDT [facility] AST 12 <=40 U/L 02/04/2025 2:28 PM EDT [facility] Alk Phos 95 36 - 123 U/L 02/04/2025 2:28 PM EDT [facility] eGFR (CKD-EPIcr 2020) 88 >=60 mL/min/1.7 3 m2 02/04/2025 2:28 PM EDT [facility] Comment:Estimated GFR was ca lculated using the CKD-EPIcr (2020) equation refit without race. The equation is recommended by the [employer] - [place] [employer] of Neph[employer] Task Force. Blood VENOUS BLOOD / Unknown Venipuncture / Unknown 02/04/2025 2:02 PM EDT 02/04/2025 2:02 PM EDT Tacho Echavarria MD CHEMISTRY ORDERABLES Final Result [facility] [address] [place] [address] documented in this encounter Visit [...] as of this encounter Care Teams Medical Office Professional Instructor Relationship Specialty Start [place] [address] [place] [address] PCP - General 06/21/10 Arlyn Schmidt MD [address] [place] [address] Consulting Physician Internal Medicine-Endocrinology, Diabetes & Metabolism 11/28/20 Tacho Echavarria MD [address] [place] [address] Internal Medicine-Medical Oncology 11/12/23 Matt Ulrich MD [address] [place] [address] Surgery-Surgical Oncology 12/04/23 Eze Brock Pastoral Care 12/13/23 Annette Walker, [facility] Events Administrative Assistant 05/13/24 Batool Celis MD [address] [facility] [place] [address] Radiation Oncologist Radiology-Radiation Oncology 06/08/24 documented as of this encounter
--- OUTSIDE RECORDS SUMMARY | 2025-02-04 14:03 | XMS_ITS | Encounter Summary ---
Author Organization [place] [address] Care Team Providers Care Manager Disaster Recovery Name Role Phone Chetna Cedeno MD Primary Care Provider [phone] Arlyn Schmidt MD Unavailable [phone] Tacho Echavarria MD Unavailable [phone] Matt Ulrich MD Unavailable [phone] Eze Brock Unavailable Annette Walker Unavailable [phone] Batool Celis MD Unavailable [phone] Reason for Visit * Reason Comments Follow-up Breast Cancer Encounter Details Date Type Department Care Team (Latest Contact Info) Description 02/04/2025 2:03 PM EDT - 02/04/2025 11:59 PM EDT Hospital Encounter Cancer Care Medical Oncology [place], [place] [id number] Tacho Echavarria MD [address] [place] [address] [phone] Invasive ductal carcinoma of breast, female, right [...] any clubs o r organizations such as scientology groups, unions, fraternal or athletic groups, or [...] Date Recorded PHQ-2 Total Score 5 07/07/2024 [facility] of Occupat ional Health - Occupational Stress [...] in the past [address] [facility], were you homeless or living in a fpc (including now)? No 11/07/2023 [facility] [...] 4 fluticasone propionate (FLONASE) 50 mcg/actuation Nasl [place], Suspension 1 [place] by Nasal route daily. 1 Each 4 [...] were not included. Patient: El Cole CSN: [id number] Date of : 1965 Age: 59 y.o. Date of Service: 02/04/2025 HEMATOLOGY/ONCOLOGY FOLLOW UP VISIT Primary Compression Molding Machine Operator & Oncologist: Tacho Echavarria MD. Patient Care Team: Chetna Cedeno MD as PCP - General Arlyn Schmidt MD as Consulting Physician (Internal Medicine-Endocrinology, Diabetes & Metabolism) Tacho Echavarria MD (Internal Medicine-Medical Oncology) Matt Ulrich MD (Surgery-Surgical Oncology) Eze Brock as Pastoral Care Annette Walker MSW as Serging Machine Operator Batool Celis MD as Radiation Oncologist (Radiology-Radiation Oncology) 2nd OPINION [facility] EVAL: [place], [place]: Dr Cota [place]: [phone] Next of Kin: Daughter Ruthy Man ([phone]) Patient Contact info: [phone] DIAGNOSIS HISTORY DATE OF INITIAL CONSULTATION: 11/14/23; outside 2nd opinion at on 09/23/2024 CURRENT TREATMENT BREAST CA: adjuvant [place]-E regimen: Aromasin 25mg po daily + dose titration up of Abemacyclib (Verzenio) 50mg po bid -> 100 mg po bid, per NCCN guidelines PE (02/02/25, at [facility]) and Prothrombin gene mutation carrier for Factor [...] to GI tolerance for 2 yr planned ([place]-E regimen) 10/2024 - changed to Aromasin d/t [...] CalcPt Dosage Given to Date in Gy [id number] Session Dosage Given in Gy 2.59871268 Reference Point ID LN Boost RP Dosage Given to Date in Gy 10 Session Dosage Given in Gy 1.22555040 Reference Point ID [id number] ISO Dosage Given to Date in Gy 40.01675592 Session Dosage Given in Gy [id number] Plan ID BH Nd Boost Plan Name [...] breast (HCC) 10/14/2023 Migraines MS (multiple sclerosis) ([facility]) Pituitary cyst Prediabetes PTSD (post-traumatic stress disorder) Sleep apnea no cpap Uterine prolapse 06/06/2011 PAST SURGICAL HISTORY Past Surgical History: Procedure Laterality Date APPENDECTOMY BREAST BIOPSY Right 10/25/2023 5:00 and 6:00 CHOLECYSTECTOMY GASTRIC BYPASS SURGERY N/A 05/01/2017 LAPAROSCOPIC SLEEVE GASTRECTOMY ; Surgeon: Marcus Perez MD; Location: [facility] MAIN OR; Service: General IR 2 [...] SACRAL SINGLE LVL 08/03/2022 Sin Tran MD [facility] SPINE CTR IMAGING IR PORT PLACEMENT EQUAL OR > 5 YEARS 11/29/2023 IR PORT PLACEMENT EQUAL OR > 5 YEARS 11/29/2023 Joselito Goodwin MD [facility] IR LUMBAR DISC SURGERY 09/11/2012 LUMBAR LAMINECTOMY & DISCECTOMY L4-5 LEFT ; Surgeon: Hetal Borden MD; MASTECTOMY Right 07/06/2024 Right modified radical mastectomy; Surgeon: Matt Ulrich MD; Location: [facility] MAIN OR; Service:General SPINE SURGERY N/A 01/04/2021 PAIN PUMP PERMANENT IMPLANT; Surgeon: Munir Hilton MD; Location: [facility] MAIN OR; Service: Pain Management THORACIC [...] op ddAC/Taxane chemo for her high risk ER/PA positive large RIGHT BREAST Carcinoma. She has [...] agent therapy, also reinforced via [email or web address] [place]. Now being seen post [...] help with use of Cymbalta. Was at [facility] and wanting to request transfer of perham [...] Device fluticasone propionate (FLONASE) 50 mcg/actuation Nasl [place], Suspension Inhalational Spacing Device (AEROCHAMBER MV) Misc [...] Gran% 0.2 % Lymph Percent 23.4 % [place] Percent 5.7 % Eos Percent 2.1 % Baso Percent 0.2 % Neut # 5.6 1.6 - 6.1 x10(3)/mcL IMMGRAN# 0.0 0.0 - 0.1 x10(3)/mcL Lymph # 1.9 1.2 - 3.9 x10(3)/mcL [place] # 0.5 0.3 - 0.9 x10(3)/mcL Eos# [...] G43.719-Chronic migraine without aura, intractable, without status [id number]. COMPARISON: Multiple priors with the latest MRI [...] Performing Provider Shaylee Roque???LOUIE Restrepo CRNA, RN Audio Recording Engineer Madelyn Sidhu RN Endoscopy Nurse Aliya Friedman [...] outside facility Neurosurgeon (Dr Benoit Duke at [facility]) and no need for surgical resection now, surveillance plan defined in his note of 02/24/24 noted Chemo induced anemia - as expected, stable cont 1 tab MVI po daily, asked for borderline VIT B12 tostart VIT B12 1000 mcg po daily otc PE/ Prothrombin gene carrier - obtaining records from [facility], meanwhile stay on FDAapproved dosing of JUSTYN [...] Tacho Echavarria MD Hematology and Medical Oncology [facility] [phone] *This note was dictated using voice recognition [...] also performed on this calendar day: d/w Telecom Sales Consultant about her care and symptom burden/depression * Rosana Gupta RN - 02/04/2025 2:20 PM EDT Fax sent to Medical Records at [facility] Request for records from most recent [...] 11:40 AM EDT Office Visit [facility] [address] [place] [address] [place] [address] [place] [address] 03/02/2025 12:45 PM EDT Procedure visit [facility] [address] [place] [address] Samm Ledesma APRN [address] [place] [address] 03/10/2025 12:30 PM EDT Appointment [facility] [place] [address] 03/10/2025 1:00 PM EDT Appointment [facility] [place] [address] Tacho Echavarria MD [address] [place] [address] 04/29/2025 9:15 AM EDT Appointment [facility] [place] [address] Batool Celis MD [address] [place] [address] [facility] [place], [place] [phone] 05/19/2025 2:15 PM EST Office Visit [facility] [address] [facility] [address] [place] [address] Sin Tran MD [facility] [place] [address] 08/12/2025 10:40 AM EST Appointment [facility] Women's Wellness [place] [facility] [place] [facility] [place] [address] Matt Ulrich MD [address] [facility] [address] [place] [address] documented as of this encounter Goals Goal Patient Goal Type Associated Problems Recent Progress Patient-Stated? Author Blood Pressure < 140/90 Blood Pressure 121/77(02/04 2:04 PM EDT) No Chetna Cedeno MD Breast [facility] Breast Health On track(2024 11:27 AM EDT) No Jasmin Porter, RAUL Note: Patient acknowledges understanding of new diagnosis, plan of care, available resources and how to contact Nurse Navigator with any future questions or concerns. Breast [facility] Breast Health Not on track(2024 11:27 AM EDT) No Jasmin Porter, RAUL Note: Patient will be compliant with monthly SBE and is aware of who to contact for any unusual or concerning findings. Breast [facility] Breast Health On track(2024 11:27 AM EDT) [...] as of this encounter Care Teams Manager Disaster Recovery Relationship Specialty [place] [address] [place] [address] PCP - General 06/21/10 Arlyn Schmidt MD [address] [place], [place] [id number] Consulting Physician Internal Medicine-Endocrinology, Diabetes & Metabolism 11/28/20 Tacho Echavarria MD 1 [place] [address] Internal Medicine-Medical Oncology 11/12/23 Matt Ulrich MD 1 [place] [address] Surgery-Surgical Oncology 12/04/23 Eze Brock Pastoral Care 12/13/23 Annette Walker MSW Serging Machine Operator 05/13/24 Batool Celis MD 1 [facility] [place] [address] Radiation Oncologist Radiology-Radiation Oncology 06/08/24 documented as of this encounter
--- OUTSIDE RECORDS SUMMARY | 2025-02-10 10:30 | XMS_ITS | Encounter Summary ---
Author Organization [place] [address] Care Team Providers Care Maxillofacial Pathology Name Role Phone Chetna Cedeno MD Primary Care Provider [phone] Arlyn Schmidt MD Unavailable [phone] Tacho Echavarria MD Unavailable [phone] Matt Ulrich MD Unavailable [phone] Eze Brock Unavailable Annette Walker Unavailable [phone] Batool Celis MD Unavailable [phone] Reason for Visit * Reason Comments Follow-up Pump Refill Encounter Details Date Type Department Care Team (Late st Contact Info) Description 02/10/2025 10:30 AM EDT Office Visit [facility] Spine [address] [address] Sin Tran MD [address] [place] [address] Chronic pain syndrome (Primary Dx); Post [...] or pharmacy? Never 11/07/2023 [facility] Utilities Answer Date Recorded In [...] Date Recorded PHQ-2 Total Score 5 07/07/2024 [facility] - Occupational Stress Questionnaire Answer Date [...] in a assisted (including now)? No 11/07/2023 [facility] IP Transportation Answer D [...] No edema, warmth, erythema, or fluctuance. The LoveThatFit analyzer was used to interrogate the SynchroMed [...] well Sin Tran MD Interventional Pain Management [facility] documented in this encounter Plan of Treatment Upcoming Encounters Date Type Department Care Team (Late st Contact Info) Description 03/02/2025 11:40 AM EDT Office Visit [facility] [address] [place] [address] [place] [address] [place] [phone] 03/02/2025 12:45 PM EDT Procedure visit [facility] [address] [facility] [address] [place] [address] Samm Ledesma APRN [address] [facility] [address] [place] [address] 03/10/2025 12:30 PM EDT Appointment [place] [address] 03/10/2025 1:00 PM EDT Appointment [place] [address] Tacho Echavarria MD [address] [place] [address] 04/29/2025 9:15 AM EDT Appointment [facility] [place] [place] [address] Batool Celis MD 1 [facility] [place] [address] 05/19/2025 2:15 PM EST Office Visit [facility] [address] [place] [address] Sin Tran MD [address] [place] [address] [place] [address] 08/12/2025 10:40 AM EST Appointment [facility] Women's Wellness [facility] [place] [phone] Matt Ulrich MD 20 [facility] 254 [place] [address] documented as of this encounter Goals Goal Patient Goal Type Associated Problems Recent Progress Patient-Stated? Author Blood Pressure < 140/90 Blood Pressure 121/77(02/04 2:04 PM EDT) No Chetna Cedeno MD Breast [facility] Breast Health On track(2024 11:27 AM EDT) No Jasmin Porter, RAUL Note: Patient acknowledges understanding of new diagnosis, plan of care, available resources and how to contact Nurse Navigator with any future questions or concerns. Breast [facility] Breast Health Not on track(2024 11:27 AM EDT) No Jasmin Porter, RAUL Note: Patient will be compliant with monthly SBE and is aware of who to contact for any unusual or concerning findings. Breast [facility] Breast Health On track(2024 11:27 AM [...] documented as of this encounter Care Teams Maxillofacial Pathology Relationship Specialty Start [place] [address] [place] [address] PCP - General 06/21/10 Arlyn [place] MD [address] [place] [address] Consulting Physician Internal Medicine-Endocrinology, Diabetes & Metabolism 11/28/20 Tacho Echavarria MD 1 [place] [address] Internal Medicine-Medical Oncology 11/12/23 Matt Ulrich MD 1 [place], [place] [id number] Surgery-Surgical Oncology 12/04/23 Eze Brcok Pastoral Care 12/13/23 Annette Walker MSW Bevel Mill Operator 05/13/24 Batool Celis MD 1 [facility] CANCER [place], [place] [phone] Radiation Oncologist Radiology-Radiation Oncology 06/08/24 documented as of this encounter
--- OUTSIDE RECORDS SUMMARY | 2025-02-17 12:36 | XMS_ITS | Encounter Summary ---
Author Organization [place] [address] Care Team Providers Care Scrum Master Name Role Phone Chetna Cedeno MD Primary Care Provider [phone] Arlyn Schmidt MD Unavailable [phone] Tacho Echavarria MD Unavailable [phone] Matt Ulrich MD Unavailable [phone] Eze Brock Unavailable Cheryl Nair RN Unavailable [phone] Annette Walker INFORMATION SYSTEMS OPERATOR Unavailable [phone] Batool Celis MD Unavailable [phone] Encounter Details Date Type Department Care Team (Late st Contact Info) Description 09/11/2024 Lab Requisition [facility] [place] [address] Beata Kebede MD [address] [place] [address] Social History Tobacco Use Types Packs/Day Years [...] Date Recorded PHQ-2 Total Score 5 07/07/2024 [facility] of Occupat ional Health [...] in a prison (including now)? No 11/07/2023 [facility] IP Transportation Answer D ate [...] AM EDT Office Visit [facility] [address] [place] [address] [place] [address] [place] [address] 03/02/2025 12:45 PM EDT Procedure visit [facility] NEUROLOG[facility] [address] [facility] [address] [facility] [address] [place] [address] Samm Ledesma, CONFIGURATION TECHNICIAN [address] [facility] [address] [place] [address] 03/10/2025 12:30 PM EDT Appointment [facility] [place], [place] [phone] 03/10/2025 1:00 PM EDT Appointment [facility] Medical Oncology [place], [place] [phone] Tacho Echavarria MD [address] [place] [address] [id number] 04/29/2025 9:15 AM EDT Appointment [facility] [place] [address] Batool Celis MD [address] [place] [address] [place] [address] 05/19/2025 2:15 PM EST Office Visit [address] [place] [address] Sin Tran MD [facility] [place] [address] 08/12/2025 10:40 AM EST Appointment [facility] Women's Wellness [place] [facility] [place] [address] Matt Ulrich MD [address] [place] [address] [address] [place] [address] documented as of this encounter Goals Goal Patient Goal Type Associated Problems Recent Progress Patient-Stated? Author Blood Pressure < 140/90 Blood Pressure 121/77(02/04 2:04 PM EDT) No Chetna Cedeno MD Breast [facility] Breast Health On track(2024 11:27 AM EDT) No Jasmin Porter RN Note: Patient acknowledges understanding of new diagnosis, plan of care, available resources and how to contact Nurse Navigator with any future questions or concerns. Breast [facility] Breast Health Not on track(2024 11:27 [...] EST) CASE REPORT Surgical Pathology Report Case: [id number] Authorizing Provider: Beata Kebede MD Collected: 09/11/20243 Ordering Location: [facility] Received: 09/11/20241312 Pathologist: Diane Ellis MD Specimen: Breast, Request for cases [id number], [id number] slides to [facility]. 09/15/2024 12:14 PM EDT [facility] FINAL DI[facility]NOSIS Results will be scanned in this case as an addendum. 09/15/2024 12:14 PM EDT [facility] at 1338 EST EMBEDDED IMAGES 09/15/2024 12:14 PM EDT [facility] ADDENDUM Refer to Scanned Surgical Pathology Report for [id number] & [id number]. 09/15/2024 12:14 PM EDT [facility] Addendum electronically signed by Diane [place] MD on 09/15/2024 at 1214 EDT Tissue BREAST STRUCTURE / Unknown 09/11/2024 1:13 PM EST 09/11/2024 1:13 PM EST us Beata Kebede MD PATHOLOGY ORDERABLES Edited R esult - Final [facility] 1 [place] [phone] documented in this encounter Visit Diagnoses Not on filedocumented in this encounter Additional Health Concerns Infection Onset Date Last Indicated Resolved Time COVID-19 09/04/2024 09/04/2024 09/24/2024 10:1 2 PM EDT Assessment Noted Time PHQ-9 Depression Total Score: 17 024 8:39 AM EST PHQ-2 Depression Total Score: 5 07/07/20 24 8:39 AM EST documented as of this encounter Care Teams Scrum Master Relationship Specialty [place] [address] [place] [address] PCP - General 06/21/10 Arlyn Schmidt MD [address] [place], [place] [id number] Consulting Physician Internal Medicine-Endocrinology , Diabetes & Metabolism 11/28/20 Tacho Echavarria MD 1 [place], [place] [phone] Internal Medicine-Medical Oncology 11/12/23 Matt Ulrich MD 1 [place] [phone] Surgery-Surgical Oncology 12/04/23 Eze Brock Pastoral Care 12/13/23 Cheryl Nair, RN Oncology Nurse Navigator 03/25/2412/13 Annette Walker, INFORMATION SYSTEMS OPERATOR Case Fitter 05/13/24 Batool Celis MD 1 [facility] [place], [place] [phone] Radiation Oncologist Radiology-Radiation Oncology 06/08/24 documented as of this encounter
--- OUTSIDE RECORDS SUMMARY | 2025-02-17 12:36 | XMS_ITS ---
Author Organization Emilee VELIZJude OD Address [facility] ZORAIDA Banuelos [address] Phone Care Team Providers Care Ibm Bpm Developer Name Role Phone Chetna Cedeno MD Primary Care Provider [phone] Arlyn Schmidt MD Unavailable [phone] Tacho Echavarria MD Unavailable [phone] Matt Ulrich MD Unavailable [phone] Eze Brock Unavailable Annette Walker Unavailable [phone] Batool Celis MD Unavailable [phone] Problems * This document contains information received from the source organization and may not represent a complete record from that organization. Patient Care Coordination No te Formatting of this note migh t be different from the original. [facility] - Sin Tran MD Controlled [...] Functional capacity documented (EVERY VISIT)01/03/2022 Pharmacy: [facility] [address] [address] [facility] [phone] AIS POA: 02/10/2025 josh as expected #[id number] Josh 08-05-2018 adm Josh 08-14-18 adm UDS 08-08-18 adm Care gap audit completed by Medina White RN on 01/01/2022. 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 Care Team Medical Oncologist Dr. Tacho Echavarria Surgeon Dr. Matt Ulrich Radiation Oncologist Dr. Batool Celis Primary Care Physician Chetna Cedeno MD Cancer Diagnosis Information Diagnosis date 10/29/23 Diagnosis and Staging information Invasive Ductal Carcinoma, right breast Clinical Stage IIIB (cT3, cN3a(f), M0, G3, ER+, DE+, Her2-) Pathologic Stage y(pT3, pN3a, G3 ER+, DE+, Her2-) Tumor markers Breast: Estrogen Receptor positive (92%) Progesterone Receptor positive (55%) Her-2 negative Background Information/Additional Screening Recommendations Genetics testing Negative ([facility] Hereditary Cancer 67-gene panel) Tobacco use Nonsmoker. [...] up to GI tolerance for2 yr planned ([facility] regimen) Radiation therapy External beam radiotherapy to a total dose of 60 Gy; 50 Gy to right chest wall and regional lymph nodes including internal mammary + 10 Gy boost to the undissected nodes. Delivered in a total of 30 fractions Endocrine Therapy Arimidex started 10/08/24 + Verzenio. Changed to Aromasin give [facility] Oncology Timeline Oncology History Invasive ductal carcinoma [...] to GI tolerance for 2 yr planned ([facility] regimen) 10/2024 - changed to Aromasin d/t [...] General Health Continue follow-up with PCP and RHEUMATOLOGIST as directed Recommendations Self-care plan: What you [...] with your body,see your regular doctor, physician billing and accounting staff assistant, or nurse practitioner. If what you are [...] Problem Noted Date Diagnosed Date Resolved Date [place] syndrome 12/30/2020 10/16/2021 Assessment & Plan (12/30/2020 [...]
--- OUTSIDE RECORDS SUMMARY | 2025-02-17 12:36 | XMS_ITS | Encounter Summary ---
Author Organization [place] [address] Care Team Providers Care Art Coordinator Name Role Phone Chetna Cedeno MD Primary Care Provider [phone] Arlyn Schmidt MD Unavailable [phone] Tacho Echavarria MD Unavailable [phone] Matt Ulrich MD Unavailable [phone] Eze Brock Unavailable Annette Walker Unavailable [phone] Batool Celis MD Unavailable [phone] Encounter Details Date Type Department Care Team (Late st Contact Info) Description 01/15/2025 Plan of Care Documentation [facility] Physical Therapy [address] [place] [address] Social History Tobacco Use Types [...] any clubs o r organizations such as anabaptist groups, unions, fraternal or athletic groups, or [...] in a mcfp (including now)? No 11/07/2023 [facility] IP Transportation Answer D ate Recorded [...] AM EDT Office Visit [facility] [place] [facility] [address] [place] [address] [place] [address] [place] [address] 03/02/2025 12:45 PM EDT Procedure visit [facility] [address] [place] [address] Samm Ledesma, FLATWORK SUPERVISOR [address] [place] [address] 03/10/2025 12:30 PM EDT Appointment [facility] [place], [place] [id number] 03/10/2025 1:00 PM EDT Appointment [facility] Medical Oncology [place], [place] [id number] Tacho Echavarria MD [address] [place] [address] [id number] 04/29/2025 9:15 AM EDT Appointment [facility] RAD ONC [place], [place] [id number] Batool Celis MD [address] [place] [address] [facility]CER [facility] [place], [place] [id number] 05/19/2025 2:15 PM EST Office Visit [place] [address] [place] [address] Sin Tran MD [address] [place] [phone] 08/12/2025 10:40 AM EST Appointment [facility] Women's Wellness [place] [facility] [place] [phone] Matt Ulrich MD [address] [place] [address] [place] [address] documented as of this encounter [...] documented as of this encounter Care Teams Art Coordinator Relationship Specialty [place] [address] [place] [id number] PCP - General 06/21/10 Arlyn Schmidt MD [address] [place] [address] Consulting Physician Internal Medicine-Endocrinology, Diabetes & Metabolism 11/28/20 Tacho Echavarria MD [address] [place] [id number] Internal Medicine-Medical Oncology 11/12/23 Matt Ulrich MD [address] [place] [id number] Surgery-Surgical Oncology 12/04/23 Eze Brock Pastoral Care 12/13/23 Annette Walker, ARACELI Thread Inspector 05/13/24 Batool Celis MD 1 [facility] [place] [address] Radiation Oncologist Radiology-Radiation Oncology 06/08/24 documented as of this encounter
--- OUTSIDE RECORDS SUMMARY | 2025-02-17 12:36 | XMS_ITS | Encounter Summary ---
Author Organization [place] [address] Care Team Providers Care Procurement Officer Name Role Phone Chetna Cedeno MD Primary Care Provider [phone] Arlyn Schmidt MD Unavailable [phone] Tacho Echavarria MD Unavailable [phone] Matt Ulrich MD Unavailable [phone] Eze Brock Unavailable Annette Walker Unavailable [phone] Batool Celis MD Unavailable [phone] Reason for Visit * Reason Onset Date Comments Symptom Call 01/15/2025 shakiness, light headed, cold chills, and breaking out in sweats Encounter Details Date Type Department Care Team (Late st Contact Info) Description 01/15/2025 Telephone [facility] Medical Oncology [place], [place] [phone] Tacho Echavarria MD [address] [place] [address] [phone] Symptom Call (shakiness, light headed, cold chills, [...] your doctor or pharmacy? Never 11/07/2023 [facility] Utilities Answer Date Recorded In the [...] Recorded PHQ-2 Total Score 5 07/07/2024 [facility] of Occupat ional Health - Occupational Stress [...] in a correction (including now)? No 11/07/2023 [facility] IP Transportation Answer D ate Recorded [...] be seen. Patient scheduled for 1:30 with SENIOR CAREGIVER and 1:15 for labs. * Telephone Encounter [...] no What Location is the Patient seen at:[facility] Preferred call back number:[phone] Explained to the caller, if this is a medical emergency please call 911 or go to the nearest emergency room. documented in this encounter Plan of Treatment Upcoming Encounters Date Type Department Care Team (Late st Contact Info) Description 03/02/2025 11:40 AM EDT Office Visit [facility] [place] [facility] [address] [place] [address] [place] [address] [place] [address] 03/02/2025 12:45 PM EDT Procedure visit [facility] [id number] Samm Ledesma, SENIOR CAREGIVER [address] [address] [id number] 03/10/2025 12:30 PM EDT Appointment [facility] [place], [place] [phone] 03/10/2025 1:00 PM EDT Appointment [facility] Oncology [place], [place] 1564417 Tacho Echavarria MD [address] [place] [address] [id number] 04/29/2025 9:15 AM EDT Appointment [facility] RAD ONC [place], [place] [phone] Batool Celis MD [address] [place] [address] CANCER CARE [place] [phone] 05/19/2025 2:15 PM EST Office Visit [facility] [address] [place] [address] [address] [address] Sin Tran MD [facility] [place] [address] 08/12/2025 10:40 AM EST Appointment [facility] Women's Wellness [place] [facility] [place] Carbajal [address] Matt Ulrich MD [address] [place] [address] [place] CORREA [address] documented as of this encounter Goals Goal [...] Sorensen APRN CHEMISTRY ORDERABLES Final Res ult [facility] 1 [place] [address] * (ABNORMAL) CBC WITH DIFF (01/15/2025 1:41 PM EDT) WBC 4.5 3.7 - 10.3 x10(3)/mc L 01/15/2025 1:[address] [facility] RBC 3.40(L) 3.90 - 5.20 x10(6)/mc L 01/15/2025 1:49 PM EDT [facility] Hgb 10.3(L) 11.2 - 15.7 g/dL 01/15/2025 1:49 PM EDT [facility] Hct 31.7(L) 34.0 - 45.0 % 01/15/2025 1:49 PM EDT [facility] MCV 93.2 80.0 - 100.0 fL 01/15/2025 1:49 PM EDT [facility] MCH 30.3 26.0 - 34.0 pg 01/15/2025 1:49 PM EDT [facility] MCHC 32.5 30.7 - 35.5 g/dL 01/15/2025 1:49 PM EDT [facility] RDW 14.7 <=14.9 % 01/15/2025 1:[address] [facility] Platelet 165 155 - 369 x10(3)/mc L 01/15/2025 1:49 PM EDT [facility] MPV 8.4(L) 8.8 - 12.5 fL 01/15/2025 1:49 PM EDT [facility] Neut # Prelim 2.9 1.6 - [...] PM EDT [facility] Ocean Percent 5.3 % 01/15/2025 1:49 PM EDT [facility] Eos Percent 1.3 % 01/15/2025 1:49 PM EDT [facility] Baso Percent 0.7 % 01/15/2025 1:49 PM EDT [facility] Neut # 2.9 1.6 - 6.1 x10(3)/ L 01/15/2025 1:49 PM EDT [facility] Comment:Neutrophils equals s egs plus bands IMMGRAN# 0.0 0.0 - 0.1 x10(3)/mc L 01/15/2025 1:49 PM EDT [facility] Comment:Automated count of m etamyelocytes, myelocytes and promyelocytes. An absolute IG <0.1 is reported as 0.0. Lymph # 1.3 1.2 - 3.9 x10(3)/ L 01/15/2025 1:49 PM EDT [facility] Ocean # 0.2(L) 0.3 - 0.9 x10(3)/ L 01/15/2025 1:49 PM EDT [facility] Eos# 0.1 0.0 - 0.5 x10(3)/ L 01/15/2025 1:49 PM EDT [facility] Baso # 0.0 0.0 - 0.1 x10(3)/ L 01/15/2025 1:49 PM EDT [facility] Blood VENOUS BLOOD / Unknown Venipuncture / Unknown 01/15/2025 1:41 PM EDT 01/15/2025 1:44 PM EDT us Heydi Sorensen SENIOR CAREGIVER HEMATOLOGY ORDERABLES Final Re sult [facility] [address] [place] [id number] documented in this encounter Visit Diagnoses Diagnosis Invasive ductal carcinoma of breast, female, right (HCC)- Primary Cold sweat Lightheaded Dizziness and giddiness Shakiness Abnormal involuntary movements documented in this encounter Additional Health Concerns Assessment Noted Time PHQ-9 Depression Total Score: 17 024 8:39 AM EST PHQ-2 Depression Total Score: 5 07/07/20 24 8:39 AM EST documented as of this encounter Care Teams Procurement Officer Relationship Specialty [place] [address] [place] [address] PCP - General 06/21/10 Arlyn Schmidt MD [address] [place] [address] Consulting Physician Internal Medicine-Endocrinology, Diabetes & Metabolism 11/28/20 Tacho Echavarria MD 1 [place] [address] Internal Medicine-Medical Oncology 11/12/23 Matt Ulrich MD 1 [place] [address] Surgery-Surgical Oncology 12/04/23 Eze Brock Pastoral Care 12/13/23 Annette Walker, CLAM PICKER Space Officer 05/13/24 Batool Celis MD 1 [facility] [place] [address] Radiation Oncologist Radiology-Radiation Oncology 06/08/24 documented as of this encounter
--- OUTSIDE RECORDS SUMMARY | 2025-02-17 12:38 | XMS_ITS | Encounter Summary ---
Author Organization [place] [address] Care Team Providers Care Detasseling Crew Supervisor Name Role Phone Chetna Cedeno MD Primary Care Provider [phone] Arlyn Schmidt MD Unavailable [phone] Tacho Echavarria MD Unavailable [phone] Matt Ulrich MD Unavailable [phone] Eze Brock Unavailable Annette Walker Unavailable [phone] Batool Celis MD Unavailable [phone] Encounter Details Date Type Department Care Team (Late st Contact Info) Description 12/25/2024 Telephone [facility] [place] [address] Jasmin Porter RN Social History [...] [facility] of Occupat ional [facility] - Occupational Stress Questionnaire Answer Date [...] in a half-way (including now)? No 11/07/2023 [facility] IP Transportation Answer D ate [...] AM EDT Office Visit [facility] [place] [facility] [address] [place] [address] [place] [address] [place] [address] 03/02/2025 12:45 PM EDT Procedure visit [facility] [address] [place] [address] Samm Ledesma, TANK BUILDER HELPER [address] [place], [place] [phone] 03/10/2025 12:30 PM EDT Appointment [place] [address] 03/10/2025 1:00 PM EDT Appointment [facility] Medical Oncology [place], [place] 7519517 Tacho Echavarria MD [address] [place] [address] [id number] 04/29/2025 9:15 AM EDT Appointment [place] [address] Batool Celis MD [address] [place] [address] CANCER CARE [place] [phone] 05/19/2025 2:15 PM EST Office Visit [address] [place] [address] Sin Tran MD [address] [place], [place] [address], [place] [address] 08/12/2025 10:40 AM EST Appointment [facility] Women's Wellness [place] [facility] [place]aj[place] [address] Matt Ulrich MD [address] [place] [address] documented as of this encounter Goals Goal Patient Goal Type Associated Problems Recent Progress Patient-Stated? Author Blood Pressure < 140/90 Blood Pressure 121/77(02/04 2:04 PM EDT) No Chetna Cedeno MD Breast [facility] Breast Health On track(2024 11:27 AM EDT) No Jasmin Porter, RN Note: Patient acknowledges understanding of new diagnosis, plan of care, available resources and how to contact Nurse Navigator with any future questions or concerns. Breast [facility] Breast Health Not on track(2024 11:27 AM EDT) No Jasmin Porter, RAUL Note: Patient will be compliant with monthly SBE and is aware of who to contact for any unusual or concerning findings. Breast [facility] Breast Health On track(2024 11:27 AM [...] documented as of this encounter Care Teams Detasseling Crew Supervisor Relationship Specialty [place] [address] [place] [address] PCP - General 06/21/10 Arlyn Schmidt MD [address] [place] [address] Consulting Physician Internal Medicine-Endocrinology, Diabetes & Metabolism 11/28/20 Tacho Echavarria MD 1 [place] [address] Internal Medicine-Medical Oncology 11/12/23 Matt Ulrich MD 1 [place] [address] Surgery-Surgical Oncology 12/04/23 Eze Brock Pastoral Care 12/13/23 Annette Walker, [facility] Retail Leader 05/13/24 Batool Celis MD 1 [facility] [place] [address] Radiation Oncologist Radiology-Radiation Oncology 06/08/24 documented as of this encounter
--- OUTSIDE RECORDS SUMMARY | 2025-02-17 12:38 | XMS_ITS | Encounter Summary ---
Author Organization [place] [address] Care Team Providers Care Manager Of Change Name Role Phone Chetna Cedeno MD Primary Care Provider [phone] Arlyn Schmidt MD Unavailable [phone] Tacho Echavarria MD Unavailable [phone] Matt Ulrich MD Unavailable [phone] Eze Brock Unavailable Annette Walker Unavailable [phone] Batool Celis MD Unavailable [phone] Encounter Details Date Type Department Care Team (Late st Contact Info) Description 01/15/2025 Plan of Care Documentation [facility] Physical Therapy [address] [place] [address] Social History Tobacco Use Types [...] in a retirement (including now)? No 11/07/[address] [facility] IP Transportation Answer D ate [...] AM EDT Office Visit [facility] [place] [facility] [address] [place] [address] [place] [address] [place] [address] 03/02/2025 12:45 PM EDT Procedure visit [facility] [address] [place] [address] Samm Ledesma, LIFTER DRIVER [address] [place] [address] 03/10/2025 12:30 PM EDT Appointment [facility] [place], [place] [phone] 03/10/2025 1:00 PM EDT Appointment [facility] Medical Oncology [place], [place] 4942117 Tacho Echavarria MD [address] [place] [address] [id number] 04/29/2025 9:15 AM EDT Appointment [facility] RAD ONC [place], [place] 0482317 Batool Celis MD [address] [place] [address] CANCER CARE [place], [place] 3401117 05/19/2025 2:15 PM EST Office Visit [place] [address] [place] [address] Sin Tran MD [address] [place] [phone] 08/12/2025 10:40 AM EST Appointment [facility] Women's Wellness [place] [facility] [place] [phone] Matt Ulrich MD [address] [place] [address] [place] [address] documented as of this encounter [...] of this encounter Care Teams Manager Of Change Relationship Specialty [place] [address] [address] [place] [address] PCP - General 06/21/10 Arlyn Schmidt MD [address] [place] [address] Consulting Physician Internal Medicine-Endocrinology, Diabetes & Metabolism 11/28/20 Tacho Echavarria MD [address] [place] [id number] Internal Medicine-Medical Oncology 11/12/23 Matt Ulrich MD [address] [place] [phone] Surgery-Surgical Oncology 12/04/23 Eze Brock Pastoral Care 12/13/23 Annette Walker, ARACELI Men'S Locker Room Attendant 05/13/24 Batool Celis MD 1 [facility] [place] [address] Radiation Oncologist Radiology-Radiation Oncology 06/08/24 documented as of this encounter
--- OUTSIDE RECORDS SUMMARY | 2025-02-17 12:38 | XMS_ITS | Encounter Summary ---
Author Organization [place] [address] Care Team Providers Care International Flight Attendant Name Role Phone Chetna Cedeno MD Primary Care Provider [phone] Arlyn Schmidt MD Unavailable [phone] Tacho Echavarria MD Unavailable [phone] Mtat Ulrich MD Unavailable [phone] Eze Brock Unavailable Annette Walker BLOCK CUBER Unavailable [phone] Batool Celis MD Unavailable [phone] Encounter Details Date Type Department Care Team (Late st Contact Info) Description 12/29/[address] [facility] Cancer Care [facility] [place] [address] Annette Walker, BLOCK CUBER Social History Tobacco Use Types Packs/Day Years [...] or pharmacy? Never 11/07/[address] [facility] Utilities Answer Date Recorded In the past 12 months has [employer], oil, or water [employer] threatened to shut off services in your [...] PHQ-2 Total Score 5 07/07/2024 [facility] of Occupat ional Health - Occupational [...] time in the past 12 m [facility], were you homeless or living in a group home (including now)? No 11/07/2023 [facility] IP Transportation Answer D ate [...] - 12/29/2024 4:05 PM EDT 12/29/24 1603 Clinical Education Academic Coordinator Assessment Referred By Patient call Disease/[place] Systems Protection Technician Assignment Breast cancer Reason for Referral Community Supports Identified Needs Adjustment to illness;Housing Social Work Interventions Community Referral;Education/Information;Brief Couseling/Support (LEATHER GOODS MAKER received call from Patient requesting 's letter for [facility] air conditioner program. LEATHER GOODS MAKER drafted letter and co worker, Sonny Fleming LEATHER GOODS MAKER will follow up with MD for signature and share with Patient.) documented in this encounter Plan of Treatment Upcoming Encounters Date Type Department Care Team (Late st Contact Info) Description 03/02/2025 11:40 AM EDT Office Visit [facility] [address] [place] [address] [place] [address] [place] [address] 03/02/2025 12:45 PM EDT Procedure visit [facility] [address] [place] [address] Samm Ledesma, LEARNING AND DEVELOPMENT ASSOCIATE [address] [address] [place] [address] 03/10/2025 12:30 PM EDT Appointment [place] [address] 03/10/2025 1:00 PM EDT Appointment [facility] Care Medical Oncology [place], [place] [phone] Tacho Echavarria MD 1 [place] [address] 04/29/2025 9:15 AM EDT Appointment [facility] [place] [address] Batool Celis MD [address] [place] [address] 05/19/2025 2:15 PM EST Office Visit [facility] [address] [place] [address] [address] [place] [address] Sin Tran MD [address] [place] [address] 08/12/2025 10:[address] [facility] Women's Wellness [place] [address] [facility] [place] [address] Matt Ulrich MD 20 [facility] [address] [place] [address] documented as of this encounter Goals Goal [...] documented as of this encounter Care Teams International Flight Attendant Relationship Specialty [place] [address] [place] [address] PCP - General 06/21/10 Arlyn Schmidt MD [address] [place] [address] Consulting Physician Internal Medicine-Endocrinology, Diabetes & Metabolism 11/28/20 Tacho Echavarria MD 1 [place], [place] 2385117 Internal Medicine-Medical Oncology 11/12/23 Matt Ulrich MD 1 [place] [address] Surgery-Surgical Oncology 12/04/23 Eze Brock Pastoral Care 12/13/23 Annette Walker MSW Systems Protection Technician 05/13/24 Batool Celis MD 1 [facility] [address] Radiation Oncologist Radiology-Radiation Oncology 06/08/24 documented as of this encounter
--- OUTSIDE RECORDS SUMMARY | 2025-02-17 12:38 | XMS_ITS | Encounter Summary ---
Author Organization [place] [address] Care Team Providers Care Quarryman Name Role Phone Chetna Cedeno MD Primary Care Provider [phone] Arlyn Schmidt MD Unavailable [phone] Tacho Echavarria MD Unavailable [phone] Matt Ulrich MD Unavailable [phone] Eze Brock Unavailable Annette Walker Unavailable [phone] Batool Celis MD Unavailable [phone] Encounter Details Date Type Department Care Team (Late st Contact Info) Description 01/13/2025 Plan of Care Documentation [facility] Physical Therapy [address] [place] [address] Social History Tobacco Use Types [...] Date Recorded PHQ-2 Total Score 5 07/07/2024 [facility]at ional [facility] - Occupational [...] in a residential (including now)? No 11/07/2023 [facility] IP Transportation Answer D ate [...] to walk with no AD by then, [place] (but pt states that she was told this may have been a misdiagnosis), currently taking chemo pill, R mastectomy Jun 2024, radiation ended 09/25/24, chronic back issues with sciatica Physician: Jericho ESCOBAR Follow Up: 11/11/24 Evaluation Date: 10/30/24 Reassessment Due: 12/26/24 Primary Insurance: MEDICAID /[facility] [id number] [facility] Secondary Insurance: n/a Insurance Authorization: AMB REFERRAL TO PHYSICAL THERAPY Authorized (10/08/2024-01/28/2025) Visits Requested Visits Authorized Visits Completed Visits Scheduled -- Details Referral ID: [id number] Authorization Status Reason: Received Carrier Authorization Authorization Comments: -- Referred To: Shaunna Workman PT at [facility] Referred By: Tacho Echavarria MD at [facility] CAN[facility] MED ONC, [facility] Date: 10/08/2024 Referral Reasons: Specialty Services Required [...] other week Needs Assistance: No Understood: Yes 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 pt verbalized understanding of this again. movie machine operator // bars with unilat UE [...] arm swing during gait [] NMR education movie machine operator // bars with no support [...] up about 2 days ago. Access Code: [email or web address] URL: [email or web address] Date: 11/11/2024 Prepared by: Romana Bowman Exercises [...] will be Independent with HEP to improve snf health and reduce risk for injury. indbut [...] increase from 727 feet with RW to 8595-2997 feet with LRAD to improve gait elisha [...] away. Treatments to consist of Therapeutic exercise 32425, Neuromuscular re-education 27803, Manual soft tissue and/or joint mobilization 52778, Patient education, Therapeutic activity 15260, and Gait training 13086. Electronically signed by: Signed: Shaunna Workman PT Date: 01/13/2025 documented in this encounter Plan of Treatment Upcoming Encounters Date Type Department Care Team (Late st Contact Info) Description 03/02/2025 11:40 AM EDT Office Visit [facility] [address] [place] [address] [place] [address] [place] [address] 03/02/2025 12:45 PM EDT Procedure visit [facility] [address] [facility] [address] [place] [address] Samm Ledesma APRN [address] [facility] [address] [place] [address] 03/10/2025 12:30 PM EDT Appointment [facility] [place], [place] [id number] 03/10/2025 1:00 PM EDT Appointment [facility] [place] [address] Tacho Echavarria MD [address] [place] [address] [id number] 04/29/2025 9:15 AM EDT Appointment [facility] [address] Batool Celis MD [address] [place] [address] [place] [address] 05/19/2025 2:15 PM EST Office Visit [facility] [address] [facility] [address] [place] [address] Sin Tran MD [address] [place] [address] 08/12/2025 10:40 AM EST Appointment [facility] [place] [address] Matt Ulrich MD [address] [place] [address] [address] [place] [address] documented as of this encounter Goals Goal [...] documented as of this encounter Care Teams Quarryman Relationship Specialty [place] [address] [place] [address] PCP - General 06/21/10 Arlyn Schmidt MD [address] [place] [address] Consulting Physician Internal Medicine-Endocrinology, Diabetes & Metabolism 11/28/20 Tacho Echavarria MD 1 [place] [address] Internal Medicine-Medical Oncology 11/12/23 Matt Ulrich MD 1 [place], [place] [id number] Surgery-Surgical Oncology 12/04/23 Eze Brock Pastoral Care 12/13/23 Aaron Annette, GAS DISPENSER Crimping Press Operator 05/13/24 Batool Celis MD [address] [place] [address] [place] [address] Radiation Oncologist Radiology-Radiation Oncology 06/08/24 documented as of this encounter
--- OUTSIDE RECORDS SUMMARY | 2025-02-17 12:38 | XMS_ITS | Encounter Summary ---
Author Organization [place] [address] Care Team Providers Care Family Services Worker Name Role Phone Chetna Cedeno MD Primary Care Provider [phone] Arlyn Schmidt MD Unavailable [phone] Tacho Echavarria MD Unavailable [phone] Matt Ulrich MD Unavailable [phone] Eze Brock Unavailable Annette Walker Unavailable [phone] Batool Celis MD Unavailable [phone] Reason for Visit * Reason Comments Pharmacy Migraine Medication Management Qulipta Encounter Details Date Type Department Care Team (Latest Contact Info) Description 12/31/2024 Specialty Pharmacy [facility] [address] [place] [address] Annamarie Mark CPhT Pharmacy Migraine [...] th e electric, gas, oil, or water [employer] threatened to shut off services in your [...] PHQ-2 Total Score 5 07/07/2024 [facility] [place] of Occupat ional Health - Occupational Stress [...] in a detention (including now)? No 11/07/2023 [facility] IP Transportation Answer D ate Recorded [...] Mark CPhT - 12/31/2024 11:07 AM EDT [facility] Qulipta RTS til 01/02 * Charlotte Martino CPhT - 12/31/2024 11:07 AM EDT Specialty Pharmacy Refill Coordination Note Contacted [facility] today regarding refills of Qulipta. Copay amount: $0 Sent [employer] message. Patient informed of copay. * Glenna Vo CPhT - 12/31/2024 11:07 AM EDT Specialty Pharmacy Refill Coordination Note Contacted [facility] today regarding refills of Qulipta. Medication to be delivered by [facility] on 01/07. Copay amount: $0 Sent [employer] message. Patient informed of copay. * Glenna Vo CPhT - 12/31/2024 11:07 AM EDT [facility] Medication has been released from [facility] but did not realize patient only has [...] Monson CPhT - 12/31/2024 11:07 AM EDT [facility] Patient will cigar packer and picker medication 01/06. documented in this encounter Plan of Treatment Upcoming Encounters Date Type Department Care Team (Late st Contact Info) Description 03/02/2025 11:40 AM EDT Office Visit [facility] [address] [place] [address] [place] [address] [place] [address] 03/02/2025 12:45 PM EDT Procedure visit [facility] [address] [facility] [address] [place] [address] Samm Ledesma, POWER HOUSE CONTROL ROOM OPERATOR [address] [facility] [address] [place] [address] 03/10/2025 12:30 PM EDT Appointment [facility] [place], [place] [id number] 03/10/2025 1:00 PM EDT Appointment [facility] [place] [address] Tacho Echavarria MD [address] [place] [address] 04/29/2025 9:15 AM EDT Appointment [facility] RAD ONC [place], [place] [phone] Batool Celis MD [address] [place] [address] [place] [address] 05/19/2025 2:15 PM EST Office Visit [address] [place] [address] Sin Tran MD [address] [place] [address] RD [place] [address] 08/12/2025 10:40 AM EST Appointment [facility] Women's Wellness [place] [facility] [address] [place] [address] Matt Ulrich MD [address] [place] [address] [address] [place] [address] documented as of this [...] documented as of this encounter Care Teams Family Services Worker Relationship Specialty [place] [address] [place] [phone] PCP - General 06/21/10 Arlyn Schmidt MD [address] [place] [address] Consulting Physician Internal Medicine-Endocrinology, Diabetes & Metabolism 11/28/20 Tacho Echavarria MD 1 [place] [address] Internal Medicine-Medical Oncology 11/12/23 Matt Ulrich MD 1 [place] [address] Surgery-Surgical Oncology 12/04/23 Eze Brock Pastoral Care 12/13/23 Annette Walker, ARACELI Acid Changer 05/13/24 Batool Celis MD 1 [facility] [address] Radiation Oncologist Radiology-Radiation Oncology 06/08/24 documented as of this encounter
--- OUTSIDE RECORDS SUMMARY | 2025-02-17 12:38 | XMS_ITS | Encounter Summary ---
Author Organization [place] [address] Care Team Providers Care Artificial Plastic Eye Maker Name Role Phone Chetna Cedeno MD Primary Care Provider [phone] Arlyn Schmidt MD Unavailable [phone] Tacho Echavarria MD Unavailable [phone] Matt Ulrich MD Unavailable [phone] Eze Brock Unavailable Annette Walker Unavailable [phone] Batool Celis MD Unavailable [phone] Encounter Details Date Type Department Care Team (Late st Contact Info) Description 01/11/2025 Orders Only [facility] Medical Oncology [place], [place] [phone] Tacho Echavarria MD [address] [place] [address] [phone] Social History Tobacco Use Types Packs/Day Years [...] Date Recorded PHQ-2 Total Score 5 07/07/2024 [facility] [place] of Occupat ional Health - Occupational Stress [...] in a retirement (including now)? No 11/07/2023 [facility] IP Transportation [...] AM EDT Office Visit [facility] [address] [place] [address] [place] [address] [place] [address] 03/02/2025 12:45 PM EDT Procedure visit [facility] [address] [place] [address] Samm Ledesma, FARM EQUIPMENT ENGINE MECHANIC [address] [facility] [address] [place], [place] [address] 03/10/2025 12:30 PM EDT Appointment [place] [address] 03/10/2025 1:00 PM EDT Appointment [facility] [place] [address] Tacho Echavarria MD [address] [place] [address] 04/29/2025 9:15 AM EDT Appointment [facility] [place] [address] Batool Celis MD [address] [place] [address] CANCER CARE [place], [place] [id number] 05/19/2025 2:15 PM EST Office Visit [address] [address] iSn Tran MD [address] [place] [address] 08/12/2025 10:40 AM EST Appointment [facility] Women's Wellness [place] [facility] [place] [address] Matt Ulrich MD [address] [place] [address] DR MUSA Zari [facility] [place] [address] documented as of this encounter Goals [...] documented as of this encounter Care Teams Artificial Plastic Eye Maker Relationship Specialty [place] [address] [place] [address] PCP - General 06/21/10 Arlyn Schmidt MD [address] [place], [place] [address] Consulting Physician Internal Medicine-Endocrinology, Diabetes & Metabolism 11/28/20 Tacho Echavarria MD 1 [place], [place] [phone] Internal Medicine-Medical Oncology 11/12/23 Matt Ulrich MD 1 [place], [place] 1446817 Surgery-Surgical Oncology 12/04/23 Eze Brock Pastoral Care 12/13/23 Annette Walker, BEAD WRAPPER Painter Plate 05/13/24 Batool Celis MD 1 [facility] [place] [address] Radiation Oncologist Radiology-Radiation Oncology 06/08/24 documented as of this encounter
--- OUTSIDE RECORDS SUMMARY | 2025-02-17 12:38 | XMS_ITS | Encounter Summary ---
Author Organization [place] [address] Care Team Providers Care Mold Maker Plaster Name Role Phone Chetna Cedeno MD Primary Care Provider [phone] Arlyn Schmidt MD Unavailable [phone] Tacho Echavarria MD Unavailable [phone] Matt Ulrich MD Unavailable [phone] Eze Brock Unavailable Annette Walker Unavailable [phone] Batool Celis MD Unavailable [phone] Reason for Visit * Reason Comments Pharmacy Oncology Management Abemaciclib Encounter Details Date Type Department Care Team (Latest Contact Info) Description 01/07/2025 Specialty Pharmacy [facility] [address] [place] [address] Anisa Lozoya CPhT Pharmacy Oncology [...] th e electric, gas, oil, or water [employer] threatened to shut off services in your [...] Date Recorded PHQ-2 Total Score 5 07/07/2024 [facility] [place] of Occupat ional Health - Occupational Stress [...] in a fdc (including now)? No 11/07/2023 [facility] IP Transportation Answer D ate Recorded In [...] Rodriguez RPH - 01/07/2025 10:56 AM EDT [facility] - Care Plan and Refill Review Refill questions and refill history verified. Last assessment 12/25/24. No reassessment needed at this time. Chetna Rodriguez Kianna Specialty Pharmacist documented in this encounter Plan of Treatment Upcoming Encounters Date Type Department Care Team (Late st Contact Info) Description 03/02/2025 11:40 AM EDT Office Visit [facility] [address] [place] [address] [place] [address] [place] [address] 03/02/2025 12:45 PM EDT Procedure visit [facility] [address] [address] [facility] [address] [place] [address] Samm Ledesma APRN [address] [facility] [address] [place] [address] 03/10/2025 12:30 PM EDT Appointment [facility] [place] [address] 03/10/2025 1:00 PM EDT Appointment [facility] [place] [address] Tacho Echavarria MD [address] [place] [address] 04/29/2025 9:15 AM EDT Appointment [facility] [place] [address] Batool Celis MD [address] [place] [address] [place] [address] 05/19/2025 2:15 PM EST Office Visit [address] [address] Sin Tran MD [address] [place] [address] 08/12/2025 10:40 AM EST Appointment [facility] Women's Wellness [facility] [place] [address] Matt Ulrich MD [address] [place] [address] 254 [place] [address] documented as of this encounter Goals Goal [...] documented as of this encounter Care Teams Mold Maker Plaster Relationship Specialty [place] [address] [place] [address] PCP - General 06/21/10 Arlyn Schmidt MD [facility] [address] [place], [place] [address] Consulting Physician Internal Medicine-Endocrinology, Diabetes & Metabolism 11/28/20 Tacho Echavarria MD [address] [place] [address] Internal Medicine-Medical Oncology 11/12/23 Matt Ulrich MD [address] [place] [address] Surgery-Surgical Oncology 12/04/23 Eze Brock Pastoral Care 12/13/23 Annette Walker MSW Career Development Facilitator 05/13/24 Batool Celis MD [address] [place] [address] [place] [address] Radiation Oncologist Radiology-Radiation Oncology 06/08/24 documented as of this encounter
--- OUTSIDE RECORDS SUMMARY | 2025-02-17 12:38 | XMS_ITS | Encounter Summary ---
Author [place] [address] Care Team Providers Care Emergency Vehicle Dispatcher Name Role Phone Chetna Cedeno MD Primary Care Provider [phone] Arlyn Schmidt MD Unavailable [phone] Tacho Echavarria MD Unavailable [phone] Matt Ulrich MD Unavailable [phone] Eze Brock Unavailable Annette Walker Unavailable [phone] Batool Celis MD Unavailable [phone] Reason for Visit * Reason Comments Medication Refill Encounter Details Date Type Department Care Team (Late st Contact Info) Description 01/14/2025 Refill [facility] Medical Oncology [place], [place] [phone] Tacho Echavarria MD [address] [place] [address] [id number] Medication Refill Social History Tobacco Use Types [...] or pharmacy? Never 11/07/2023 [facility] Utilities Answer Date Recorded In [...] a group home (including now)? No 11/07/2023 [facility] IP Transportation Answer [...] 11:40 AM EDT Office Visit [facility] [address] [place] [address] [place] [address] [place] [address] 03/02/2025 12:45 PM EDT Procedure visit [facility] [address] [place] [address] [address] [place] [address] Samm Ledesma, MELT HOUSE DRAG OPERATOR [address] [facility] 100 [place] [address] 03/10/2025 12:30 PM EDT Appointment [facility] [place], [place] [phone] 03/10/2025 1:00 PM EDT Appointment [facility] [place] [address] Tacho Echavarria MD [address] [place] [address] [id number] 04/29/2025 9:15 AM EDT Appointment [place] [address] Batool Celis MD [address] [place] [address] 05/19/2025 2:15 PM EST Office Visit [address] [address] Sin Tran MD [address] [place] [address] 08/12/2025 10:40 AM EST Appointment [facility] Women's Wellness [facility] [place] [address] Matt Ulrich MD [address] [place] [address] [address] [place] [address] documented as of this encounter Goals Goal [...] documented as of this encounter Care Teams Emergency Vehicle Dispatcher Relationship Specialty [place] [address] [place] [address] PCP - General 06/21/10 Arlyn Schmidt MD [address] [place] [address] Consulting Physician Internal Medicine-Endocrinology, Diabetes & Metabolism 11/28/20 Tacho Echavarria MD 1 [place] [address] Internal Medicine-Medical Oncology 11/12/23 Matt Ulrich MD 1 [place] [address] Surgery-Surgical Oncology 12/04/23 Eze Brock Pastoral Care 12/13/23 Aaron Annette, BLOCKING MACHINE TENDER Clerical Receptionist 05/13/24 Batool Celis MD [address] [place] [address] [place] [address] Radiation Oncologist Radiology-Radiation Oncology 06/08/24 documented as of this encounter
--- OUTSIDE RECORDS SUMMARY | 2025-02-17 12:38 | XMS_ITS | Encounter Summary ---
Author Organization [place] [address] Care Team Providers Care Radar Technician Name Role Phone Chetna Cedeno MD Primary Care Provider [phone] Arlyn Schmidt MD Unavailable [phone] Tacho Echavarria MD Unavailable [phone] Matt Ulrich MD Unavailable [phone] Eze Brock Unavailable Annette Walker RENEWABLE ENERGY CONSULTANT Unavailable [phone] Batool Celis MD Unavailable [phone] Encounter Details Date Type Department Care Team (Late st Contact Info) Description 12/30/2024 Social Work [facility] Cancer Care [facility] [place] [address] Sonny Fleming, RENEWABLE ENERGY CONSULTANT Social History Tobacco Use Types Packs/Day Years [...] doctor or pharmacy? Never 11/07/2023 [facility] Utilities Answer Date Recorded In the past 12 months has th e electric, gas, oil, or water [employer] threatened to shut off services in [...] any clubs o r organizations such as episcopal groups, unions, fraternal or athletic groups, or [...] Date Recorded PHQ-2 Total Score 5 07/07/2024 [facility] [place] of Occupat ional Health - Occupational Stress [...] a skilled nursing (including now)? No 11/07/2023 [facility] IP Transportation [...] AM EDT Office Visit [facility] [address] [place] [address] [place] [address] [place] [address] 03/02/2025 12:45 PM EDT Procedure visit [facility] [address] [facility] [address] [place] [address] Samm Ledesma, CARGO SERVICES COORDINATOR [address] [facility] [address] [facility] [address] [place] [address] 03/10/2025 12:30 PM EDT Appointment [place] [address] 03/10/2025 1:00 PM EDT Appointment [facility] Care Medical Oncology [place], [place] [phone] Tacho Echavarria MD [address] [place] [id number] 04/29/2025 9:15 AM EDT Appointment [facility] [place] [address] Batool Celis MD [address] [place] [address] [place]CER [place] 1786[address] 05/19/2025 2:15 PM EST Office Visit [place] [address] [place] [address] Sin Tran MD [address] [place] [address] [place] [address] 08/12/2025 10:40 AM EST Appointment [facility] Women's Well[place] [address] Matt Ulrich MD [address] [place] [address] [place] [address] documented as of this encounter Goals [...] documented as of this encounter Care Teams Radar Technician Relationship Specialty [place] [address] [place] [address] PCP - General 06/21/10 Arlyn Schmidt MD [address] [place], [place] 289[address] Consulting Physician Internal Medicine-Endocrinology, Diabetes & Metabolism 11/28/20 Tacho Echavarria MD 1 [place], [place] [phone] Internal Medicine-Medical Oncology 11/12/23 Matt Ulrich MD 1 [place], [place] 136[address]17 Surgery-Surgical Oncology 12/04/23 Eze Brock Pastoral Care 12/13/23 Annette Walker, RENEWABLE ENERGY CONSULTANT Pier Runner 05/13/24 Batool Celis MD 1 [facility] [place] [address] Radiation Oncologist Radiology-Radiation Oncology 06/08/24 documented as of this encounter
--- OUTSIDE RECORDS SUMMARY | 2025-02-17 12:38 | XMS_ITS | Encounter Summary ---
Author [place] [address] Care Team Providers Care Sponge Buffer Name Role Phone Chetna Cedeno MD Primary Care Provider [phone] Arlyn Schmidt MD Unavailable [phone] Tacho Echavarria MD Unavailable [phone] Matt Ulrich MD Unavailable [phone] Eze Brock Unavailable Annette Walker Unavailable [phone] Batool Celis MD Unavailable [phone] Encounter Details Date Type Department Care Team (Late st Contact Info) Description 12/23/2024 Telephone [facility] Medical Oncology [place], [place] [id number] Tacho Echavarria MD [address] [place] [address] [phone] Social History Tobacco Use Types Packs/Day Years [...] Date Recorded PHQ-2 Total Score 5 07/07/2024 [facility] of Occupat ional Health - Occupational Stress [...] in a alf (including now)? No 11/07/2023 [facility] IP Transportation Answer D ate [...] No 12/06/2022 2:08 PM EDT Doni Macarena SHAD AikenSharonda documented as of this encounter Mental Status * Because of a physical, mental or emotional condition, does this person have serious difficulty concentrating, remembering or making decisions? Answer Entry Date Author No 12/06/2022 2:08 PM EDT Macarena Marion SHAD AikenSharonda documented in this encounter Miscellaneous Notes * [...] - Missy Almaraz - 12/23/2024 3:25 PM EDTSumchristina ECHAVARRIA Ja Jerez, I am trying to [...] 11:40 AM EDT Office Visit [place] [address] [place] [address] [place] [address] [place] [address] 03/02/2025 12:45 PM EDT Procedure visit [facility] [address] [place], [place] [id number] Samm Ledesma, VOCATIONAL EDUCATION PROFESSIONAL [address] [place], [place] [id number] 03/10/2025 12:30 PM EDT Appointment [facility] [place], [place] [phone] 03/10/2025 1:00 PM EDT Appointment [facility] [place] [address] Tacho Echavarria MD [address] [place], [place] [id number] 04/29/2025 9:15 AM EDT Appointment [place] [address] Batool Celis MD [address] [place] [address] [place] [address] 05/19/2025 2:15 PM EST Office Visit [address] [place] [address] Sin Tran MD [address] [place] [address] 08/12/2025 10:40 AM EST Appointment [facility] Women's Wellness [facility] [place] [address] Matt Ulrich MD [address] [place] [address] [address] [place] [address] documented as of this encounter Goals Goal Patient Goal Type Associated Problems Recent Progress Patient-Stated? Author Blood Pressure < 140/90 Blood Pressure 121/77(02/04 2:04 PM EDT) No Chetna Cedeno MD Breast [facility] Breast [facility] On track(2024 11:27 AM EDT) No Jasmin Porter, RN Note: Patient acknowledges understanding of new diagnosis, plan of care, available resources and how to contact Nurse Navigator with any future questions or concerns. Breast [facility] Breast [facility] Not on track(2024 11:27 [...] MISC COMMENT Tiago 01/07/2025 7:34 AM EDT [facility] [place] [facility] Blood VENOUS STRUCTURE / Unknown Port / Unknown 01/06/2025 1:13 PM EDT 01/07/2025 7:31 AM EDT Tacho Echavarria MD HEMATOLOGY ORDERABLES Final Result [facility] [address] [place] [address] [phone] documented in this encounter Visit Diagnoses Diagnosis [...] documented as of this encounter Care Teams Sponge Buffer Relationship Specialty [place] [address] [place] [address] PCP - General 06/21/10 Arlyn Schmidt MD [address] [place] [address] Consulting Physician Internal Medicine-Endocrinology, Diabetes & Metabolism 11/28/20 Tacho Echavarria MD 1 [place] [address] Internal Medicine-Medical Oncology 11/12/23 Matt Ulrich MD 1 [place], [place] [id number] Surgery-Surgical Oncology 12/04/23 Eze Brock Pastoral Care 12/13/23 Annette Walker, KEG VARNISHER Experimental Flight Test Mechanic 05/13/24 Batool Celis MD 1 [facility] [place] [address] Radiation Oncologist Radiology-Radiation Oncology 06/08/24 documented as of this encounter
--- OUTSIDE RECORDS SUMMARY | 2025-02-17 12:38 | XMS_ITS | Encounter Summary ---
Author Organization [place] [address] Care Team Providers Care Shale Miner Name Role Phone Chetna Cedeno MD Primary Care Provider [phone] Arlyn Schmidt MD Unavailable [phone] Tacho Echavarria MD Unavailable [phone] Matt Ulrich MD Unavailable [phone] Eze Brock Unavailable Annette Walker Unavailable [phone] Batool Celis MD Unavailable [phone] Reason for Visit * Reason Comments Medication Refill Encounter Details Date Type Department Care Team (Late st Contact Info) Description 01/15/2025 Refill Cancer Care Medical Oncology [place], [place] [phone] Tacho Echavarria MD [address] [place] [address] [id number] Medication Refill Social History Tobacco Use Types [...] Date Recorded PHQ-2 Total Score 5 07/07/2024 [facility] of Occupat ional Health - Occupational [...] in a assisted (including now)? No 11/07/2023 [facility] IP Transportation [...] 11:40 AM EDT Office Visit [facility] [place] [address] [place] [address] [place] [address] [place] [address] 03/02/2025 12:45 PM EDT Procedure visit [facility] [address] [place] [address] Samm Ledesma, PLANT TECHNICIAN/CONTROL ROOM OPERATOR [address] [facility] [facility] [address] [place] [address] 03/10/2025 12:30 PM EDT Appointment [place] [address] 03/10/2025 1:00 PM EDT Appointment [facility] Medical Oncology [place], [place] [phone] Tacho Echavarria MD [address] [place] [address] 04/29/2025 9:15 AM EDT Appointment [facility] RAD ONC [place], [place] [phone] Batool Celis MD 1 [facility] [place] [address] 05/19/2025 2:15 PM EST [facility] [facility] [address] [place] [address] Sin Tran MD [address] [place], [place] [address] [address] 08/12/2025 10:40 AM EST Appointment [facility] Women[facility] [place] [phone] Matt Ulrich MD [address] [facility] 254 [place] [address] documented as of this encounter Goals Goal Patient Goal Type Associated Problems Recent Progress Patient-Stated? Author Blood Pressure < 140/90 Blood Pressure 121/77(02/04 2:04 PM EDT) No Chetna Cedeno MD Breast [facility] Breast Health On track(2024 11:27 AM EDT) No Jasmin Porter, RAUL Note: Patient acknowledges understanding of new diagnosis, plan of care, available resources and how to contact Nurse Navigator with any future questions or concerns. Breast [facility] Breast Health Not on [...] documented as of this encounter Care Teams Shale Miner Relationship Specialty [place] [address] [place] [address] PCP - General 06/21/10 Arlyn Schmidt MD [address] [place] [address] Consulting Physician Internal Medicine-Endocrinology, Diabetes & Metabolism 11/28/20 Tacho Echavarria MD 1 [place], [place] [phone] Internal Medicine-Medical Oncology 11/12/23 Matt Ulrich MD 1 [place] [address] Surgery-Surgical Oncology 12/04/23 Eze Brock Pastoral Care 12/13/23 Annette Walker, ARACELI Fur Machine Operator 05/13/24 Batool Celis MD 1 [facility] [place] [address] Radiation Oncologist Radiology-Radiation Oncology 06/08/24 documented as of this encounter
--- OUTSIDE RECORDS SUMMARY | 2025-02-17 12:38 | XMS_ITS | Encounter Summary ---
Author Organization [place] [address] Care Team Providers Care Saw Straightener Name Role Phone Chetna Cedeno MD Primary Care Provider [phone] Arlyn Schmidt MD Unavailable [phone] Tacho Echavarria MD Unavailable [phone] Matt Ulrich MD Unavailable [phone] Eze Brock Unavailable Annette Walker Unavailable [phone] Batool Celis MD Unavailable [phone] Reason for Visit * Reason Comments Pharmacy Migraine Medication Management Qulipta pa renewal Encounter Details Date Type Department Care Team (Latest Contact Info) Description 12/23/2024 Specialty Pharmacy [facility] [address] [place] [address] Anisa Lozoya CPhT Pharmacy [...] Date Recorded PHQ-2 Total Score 5 07/07/2024 [facility] [place] of Occupat ional Health - Occupational Stress [...] in a prison (including now)? No 11/07/2023 [facility] IP Transportation Answer D ate [...] Lozoya CPhT - 12/23/2024 3:52 PM EDT [facility] Prior Authorization PA for Qulipta on 12/30/24. Last CR: 12/08/24 Last OV: 09/15/24. Will submit PA. [facility] Prior Authorization Submitted PA for Qulipta to [employer] via covermymeds (Morel [id number]). Will follow up on 12/25. * Leslie Bentley CPhT - 12/23/2024 3:52 PM EDT [facility] Prior Authorization Determination Received notice of PA approval for Qulipta.. PA approved from 12/23/24 to 12/23/25. Refill coordination scheduled for 12/31/24. documented in this encounter Plan of Treatment Upcoming Encounters Date Type Department Care Team (Late st Contact Info) Description 03/02/2025 11:40 AM EDT Office Visit [facility] [place] [address] [place] [address] [place] [address] [place] [address] 03/02/2025 12:45 PM EDT Procedure visit [facility] [address] [place] [address] Samm Ledesma, REHABILITATION WORKER [address] [facility] [address] [place] [address] 03/10/2025 12:30 PM EDT Appointment [facility] [place] [address] 03/10/2025 1:00 PM EDT Appointment [facility] [place] [address] Tacho Echavarria MD [address] [place] [id number] 04/29/2025 9:15 AM EDT Appointment [place] [address] Batool Celis MD [address] [place] [address] 05/19/2025 2:15 PM EST Office Visit [address] [address] Sin Tran MD [address] [place] [address] 08/12/2025 10:40 AM EST Appointment [facility] Women's Wellness [facility] [place] [address] Matt Ulrich MD [address] [place] [address] 254 [place] [address] documented as of this encounter Goals Goal [...] documented as of this encounter Care Teams Saw Straightener Relationship Specialty [place] [address] [place] [address] PCP - General 06/21/10 Arlyn Schmidt MD [address] [place] [address] Consulting Physician Internal Medicine-Endocrinology, Diabetes & Metabolism 11/28/20 Tacho Echavarria MD 1 [place] [address] Internal Medicine-Medical Oncology 11/12/23 Matt Ulrich MD 1 [place] [address] Surgery-Surgical Oncology 12/04/23 Eze Brock Pastoral Care 12/13/23 Annette Walker MSW Butter Maker 05/13/24 Batool Celis MD [address] [place] [address] [place] [address] Radiation Oncologist Radiology-Radiation Oncology 06/08/24 documented as of this encounter
--- OUTSIDE RECORDS SUMMARY | 2025-02-17 12:38 | XMS_ITS | Encounter Summary ---
Author Organization [place] [address] Care Team Providers Care Furs Salesperson Name Role Phone Chetna Cedeno MD Primary Care Provider [phone] Arlyn Schmidt MD Unavailable [phone] Tacho Echavarria MD Unavailable [phone] Matt Ulrich MD Unavailable [phone] Eze Brock Unavailable Annette Walker Unavailable [phone] Batool Celis MD Unavailable [phone] Encounter Details Date Type Department Care Team (Late st Contact Info) Description 12/29/2024 Orders Only [facility] [address] [place] [address] Elie Antoine, [facility] Restless leg syndrome; Essential hypertension, benign Social [...] 11/07/2023 [facility] Utilities Answer Date Recorded In the past 12 months has [employer], oil, or water [employer] threatened to shut off services in your [...] Date Recorded PHQ-2 Total Score 5 07/07/2024 [facility] of Occupat ional Health - [...] in a detention (including now)? No 11/07/2023 [facility] IP Transportation [...] 12/06/2022 2:08 PM EDT Macraena Marion CCMA documented as of this encounter [...] 11:40 AM EDT Office Visit [facility]UL[facility] [place]ITT [address] [place] [address] [place] [address] [place] [address] 03/02/2025 12:45 PM EDT Procedure visit [facility] NE[facility]OLOG[facility]ECT[facility] [address] [place] [address] Samm Ledesma APRN [address] [place] [address] 03/10/2025 12:30 PM EDT Appointment [place] [address] 03/10/2025 1:00 PM EDT Appointment [facility] Medical Oncology [place], [place] [phone] Tacho Echavarria MD [address] [place] [address] [phone] 04/29/2025 9:15 AM EDT Appointment [facility] [address] Batool Celis MD [address] [facility] [address] CANCER CARE [place], [place] [address] 05/19/2025 2:15 PM EST Office Visit [address] [place] [address] Sin Tran MD [address] [place] [address] 08/12/2025 10:[address] [facility] Women's Wellness [facility] [place] [address] Matt Ulrich MD [address] [place] [address] 254 [place] [address] documented as of this encounter Goals Goal [...] documented as of this encounter Care Teams Furs Salesperson Relationship Specialty [place] [address] [place] [address] PCP - General 06/21/10 Arlyn Schmidt MD [address] [place] [address] Consulting Physician Internal Medicine-Endocrinology, Diabetes & Metabolism 11/28/20 Tacho Echavarria MD 1 [place] [address] Internal Medicine-Medical Oncology 11/12/23 Matt Ulrich MD 1 [place] [address] Surgery-Surgical Oncology 12/04/23 Eze Brock Pastoral Care 12/13/23 Annette Walker MSW Director Of Retail Operations 05/13/24 Batool Celis MD 1 [facility] [place] [address] Radiation Oncologist Radiology-Radiation Oncology 06/08/24 documented as of this encounter
--- OUTSIDE RECORDS SUMMARY | 2025-02-17 12:38 | XMS_ITS | Encounter Summary ---
Author [place] [address] Care Team Providers Care Wastewater Technician Name Role Phone Chetna Cedeno MD Primary Care Provider [phone] Arlyn Schmidt MD Unavailable [phone] Tacho Echavarria MD Unavailable [phone] Matt Ulrich MD Unavailable [phone] Eze Brock Unavailable Annette Walker Unavailable [phone] Batool Celis MD Unavailable [phone] Reason for Visit * Reason Onset Date Comments Botox Injection 01/01/2025 ~03/02/2025 Encounter Details Date Type Department Care Team (Late st Contact Info) Description 01/01/2025 Patient Outreach [facility] [address] [facility] [address] [place] [address] Samm Ledesma, GAS ENGINE MECHANIC [address] [place] [address] Botox Injection (~03/02/2025 ) Social History Tobacco [...] your doctor or pharmacy? Never 11/07/2023 [facility] Utilities Answer Date Recorded In the [...] 07/07/2024 [facility] of Occupat ional [facility] - Occupational Stress Questionnaire Answer Date Recorded [...] in a chcf (including now)? No 11/07/2023 [facility] IP Transportation Answer D ate Recorded [...] 01/01/2025 11:30 AM EDT ~03/02/2025 ANNIE APPROVED: [id number] AUTH #: ASO ASBM Preferred [id number] DATES OF APPROVAL: 08/12/2024-08/11/2025 UNITS APPROVED: 620 units/ 4 visits documented in this encounter Plan of Treatment Upcoming Encounters Date Type Department Care Team (Late st Contact Info) Description 03/02/2025 11:40 AM EDT Office Visit [facility] [place] [address] [place] [address] [place] [address] [place] [address] 03/02/2025 12:45 PM EDT Procedure visit [facility] [address] [facility] [address] [facility] [address] [place] [address] Samm Ledesma, GAS ENGINE MECHANIC [address] [address] [place] [address] 03/10/2025 12:30 PM EDT Appointment [facility] [place], [place] [phone] 03/10/2025 1:00 PM EDT Appointment [facility] [place] [address] Tacho Echavarria MD [address] [place] [address] [id number] 04/29/2025 9:15 AM EDT Appointment [place] [address] Batool Celis MD [address] [place] [address] [place] [address] 05/19/2025 2:15 PM EST Office Visit [address] [address] Sin Tran MD [address] [place] [address] 08/12/2025 10:[address] [facility] Women's Wellness [facility] [place] [address] Matt Ulrich MD [address] [place] [address] 254 [place] [address] documented as of this encounter Goals Goal [...] documented as of this encounter Care Teams Wastewater Technician Relationship Specialty [place] [address] [place] [address] PCP - General 06/21/10 Arlyn Schmidt MD [address] [place] [address] Consulting Physician Internal Medicine-Endocrinology, Diabetes & Metabolism 11/28/20 Tacho Echavarria MD 1 [place] [address] Internal Medicine-Medical Oncology 11/12/23 Matt Ulrich MD 1 [place] [address] Surgery-Surgical Oncology 12/04/23 Eze Brock Pastoral Care 12/13/23 Annette Walker MSW Retail Zone Specialist 05/13/24 Batool Celis MD [address] [place] [address] [place] [address] Radiation Oncologist Radiology-Radiation Oncology 06/08/24 documented as of this encounter
--- OUTSIDE RECORDS SUMMARY | 2025-02-17 12:38 | XMS_ITS | Encounter Summary ---
Author Organization [place] [address] Care Team Providers Care Heater Operator Name Role Phone Chetna Cedeno MD Primary Care Provider [phone] Arlyn Schmidt MD Unavailable [phone] Tacho Echavarria MD Unavailable [phone] Matt Ulrich MD Unavailable [phone] Eze Brock Unavailable Annette Walker Unavailable [phone] Batool Celis MD Unavailable [phone] Reason for Visit * Reason Comments Pharmacy Oncology Management Pharmacy Reassessment abemaciclib (Verze nio) Encounter Details Date Type Department Care Team (Latest Contact Info) Description 12/25/2024 Specialty Pharmacy [facility] [address] [place] [address] Hilary Rivas, [facility] Pharmacy Oncology Management; Pharmacy Reassessment (abemaciclib [...] Date Recorded PHQ-2 Total Score 5 07/07/2024 [facility] of Occupat ional Health - [...] in a intermediate (including now)? No 11/07/2023 [facility] IP Transportation Answer D ate Recorded In [...] this encounter Progress Notes * Rob Hilary, [facility] - 12/25/2024 10:18 AM EDT Specialty Pharmacy - Hematology/Oncology Reassessment Primary Supervisor Housecleaner/Oncologist: Dr. Jericho Cole is a 59 y.o. [...] into the lungs daily. fluticasone propionate 1 [place] by Nasal route daily. Aerochamber MV 1 Each by [facility].(Non-Drug; Combo Route) route as needed. lidocaine-prilocaine Apply [...] Roland RPH - 12/25/2024 10:18 AM EDT [facility] Per secure chat with provider. Will hold off on dose escalation at this time. Plan to re-evaluate in 1 month. documented in this encounter Plan of Treatment Upcoming Encounters Date Type Department Care Team (Late st Contact Info) Description 03/02/2025 11:40 AM EDT Office [place] [facility] [place] [facility] [address] [place] [address] [place] [address] [place] [address] 03/02/2025 12:45 PM EDT Procedure visit [facility] [address] [facility] [address] [address] [place] [address] Samm Ledesma, GREEN END WORKER [address] [facility] [address] [place] [address] 03/10/2025 12:30 PM EDT Appointment [facility] [place] [id number] 03/10/2025 1:00 PM EDT Appointment [facility] Medical Oncology [place], [place] [phone] Tacho Echavarria MD [address] [place] [address] 04/29/2025 9:15 AM EDT Appointment [facility] RAD ONC [place], [place] 708[address]7 Batool Celis MD [address] [place] [address] [place] [address] 05/19/2025 2:15 PM EST Office Visit [facility] [address] [facility] [address] [place] [address] Sin Tran MD [facility] [place] [address] 08/12/2025 10:40 AM EST Appointment [facility] Women's Wellness [facility] [place] [address] Matt Ulrich MD [address] [place] [address] [address] [place] [address] documented as of this encounter [...] documented as of this encounter Care Teams Heater Operator Relationship Specialty [place] [address] [place] [address] PCP - General 06/21/10 Arlyn Schmidt MD [address] [place] [address] Consulting Physician Internal Medicine-Endocrinology, Diabetes & Metabolism 11/28/20 Tacho Echavarria MD 1 [place] [address] Internal Medicine-Medical Oncology 11/12/23 Matt Ulrich MD 1 [place] [address] Surgery-Surgical Oncology 12/04/23 Eze Brock Pastoral Care 12/13/23 Annette Walker, DRINKING WATER TECHNICIAN Stage Driver 05/13/24 Batool Celis MD 1 [facility] [place] [address] Radiation Oncologist Radiology-Radiation Oncology 06/08/24 documented as of this encounter
--- OUTSIDE RECORDS SUMMARY | 2025-02-17 12:38 | XMS_ITS | Encounter Summary ---
Author Organization [place] [address] Care Team Providers Care Hand Shoes Sewer Name Role Phone Chetna Cedeno MD Primary Care Provider [phone] Arlyn Schmidt MD Unavailable [phone] Tacho Echavarria MD Unavailable [phone] Matt Ulrich MD Unavailable [phone] Eze Brock Unavailable Annette Walker Unavailable [phone] Batool Celis MD Unavailable [phone] Encounter Details Date Type Department Care Team (Late st Contact Info) Description 12/28/2024 Orders Only Cancer Care Medical Oncology [place], [place] [id number] Tacho Echavarria MD [address] [place] [address] [phone] 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) [...] from your doctor or pharmacy? Never 11/07/2023 [facility] Utilities Answer Date Recorded In the [...] PHQ-2 Total Score 5 07/07/2024 [facility] of Occupat ional Health - Occupational Stress [...] in the past 12 m [facility], were you homeless or living in a nursing home (including now)? No 11/07/2023 [facility] IP Transportation Answer D ate Recorded In [...] AM EDT Office Visit [facility] [address] [place] [address] [place] [address] [place] [address] 03/02/2025 12:45 PM EDT Procedure visit [facility] [address] [place] [address] [phone] Samm Ledesma, PEANUT SALTER [address] [facility] [address] [place] [address] 03/10/2025 12:30 PM EDT Appointment [facility] [place], [place] [id number] 03/10/2025 1:00 PM EDT Appointment [place] [address] Tacho Echavarria MD [address] [place] [address] [phone] 04/29/2025 9:15 AM EDT Appointment [place] [address] Batool Celis MD [address] [place] [address] [place] [address] 05/19/2025 2:15 PM EST Office Visit [address] [place] [address] Sin Tran MD [facility] [place] [address] 08/12/2025 10:40 AM EST Appointment [facility] Women's Wellness [place] [address] [facility] [place] [address] Matt Ulrich MD [address] [place] [address] [address] [place] [address] documented as of this encounter Goals Goal Patient Goal Type Associated Problems Recent Progress Patient-Stated? Author Blood Pressure < 140/90 Blood Pressure 121/77(02/04 2:04 PM EDT) No Chetna Cedeno MD Breast [facility] Breast Health On track(2024 11:27 AM EDT) No Jasmin Porter, RAUL Note: Patient acknowledges understanding of new diagnosis, plan of care, available resources and how to contact Nurse Navigator with any future questions or concerns. Breast [facility] Breast Health Not on track(2024 [...] CHEMISTRY ORDERABLES Final Result Performing Organization Address City/[facility]/ZIP Co de Phone Number PREFERRED LAB [employer] [facility] 1 [facility] , [place] [address] * VITAMIN B12/ FOLIC ACID (01/06/2025 1:13 PM EDT) Vitamin B12 305 232 - 1,245 pg/mL 01/06/2025 2:55 PM EDT PREFERRED path intelligence [facility] Folate 15.80 >=4.80 ng/mL 01/06/2025 2:55 PM EDT [facility] Blood VENOUS STRUCTURE / Unknown Port / Unknown 01/06/2025 1:13 PM EDT 01/06/2025 1:17 PM EDT Narrative PREFERRED [facility] - 01/06/2025 2:55 PM EDT Ingestion of haroon doses of biotin (>5 mg/day) taken within 8 hours of drawing blood sample can interfere with this immunoassay test. Tacho Echavarria MD CHEMISTRY ORDERABLES Final Result Performing Organization Address City/[facility] Co de Phone Number [facility] path intelligence [facility] 1 [facility] [place] [address] [address] * (ABNORMAL) COMPREHENSIVE METABOLIC PANEL (01/06/2025 1:13 PM EDT) Sodium 140 136 - 145 mmol/L 01/06/2025 1:37 PM EDT [facility] Potassium 3.8 3.5 - 5.0 mmol/L 01/06/2025 1:37 PM EDT [facility] Chloride 108(H) 98 - 107 mmol/L 01/06/2025 1:37 PM EDT [facility] Total CO2 22 22 - 29 mmol/L 01/06/2025 1:37 PM EDT [facility] Anion Gap 10 7 - 16 mmol/L 01/06/2025 1:37 PM EDT [facility] Calcium 9.2 8.6 - 10.4 mg/dL 01/06/2025 1:37 PM EDT [facility] Glucose Lvl 121(H) 70 - 99 mg/dL 01/06/2025 1:37 PM EDT [facility] BUN 16 6 - 20 mg/dL 01/06/2025 1:37 PM EDT [facility] Creatinine 0.83 0.51 - 1.30 mg/dL 01/06/2025 1:37 PM EDT [facility] Albumin 4.0 3.5 - 5.2 gm/dL 01/06/2025 1:37 PM EDT [facility] Total Protein 6.6 6.4 - 8.3 gm/dL 01/06/2025 1:37 PM EDT [facility] Bili Total 0.4 0.2 - 1.3 mg/dL 01/06/2025 1:37 PM EDT [facility] ALT 9 <=41 U/L 01/06/2025 1:37 PM EDT [facility] AST 14 <=40 U/L 01/06/2025 1:37 PM EDT [facility] Alk Phos 127(H) 36 - 123 U/L 01/06/2025 1:37 PM EDT [facility] eGFR (CKD-EPIcr 2020) 82 >=60 mL/min/1.7 3 m2 01/06/2025 1:37 PM EDT [facility] Comment:Estimated GFR was ca lculated using the CKD-EPIcr (2020) equation refit without race. The equation is recommended by the National Kidney Foundation - [place] Society of Nephrology Task Force. Blood VENOUS STRUCTURE / Unknown Port / Unknown 01/06/2025 1:13 PM EDT 01/06/2025 1:17 PM EDT Tacho Echavarria MD CHEMISTRY ORDERABLES Final Result [facility] 1 [place] [address] * (ABNORMAL) CBC WITH DIFF (01/06/2025 1:13 PM EDT) [facility] WBC 5.1 3.7 - 10.3 x10(3)/mc L 01/06/2025 1:22 PM EDT [facility] RBC 3.61(L) 3.90 - 5.20 x10(6)/mc L 01/06/2025 1:22 PM EDT [facility] Hgb 11.0(L) 11.2 - 15.7 g/dL 01/06/2025 1:22 PM EDT [facility] Hct 33.2(L) 34.0 - 45.0 % 01/06/2025 1:22 PM EDT [facility] MCV 92.0 80.0 - 100.0 fL 01/06/2025 1:22 PM EDT [facility] MCH 30.5 26.0 - 34.0 pg 01/06/2025 1:22 PM EDT [facility] MCHC 33.1 30.7 - 35.5 g/dL 01/06/2025 1:22 PM EDT [facility] RDW 14.5 <=14.9 % 01/06/2025 1:22 PM EDT [facility] Platelet 170 155 - 369 x10(3)/mc L 01/06/2025 1:22 PM EDT [facility] MPV 8.8 8.8 - 12.5 fL 01/06/2025 1:22 PM EDT [facility] Neut # Prelim 3.3 1.6 - 6.1 x10(3)/mc L 01/06/2025 1:22 PM EDT [facility] Comment:Preliminary automate d absolute neutrophil count. Value may change if manual differential is indicated. Neut Percent 65.2 % 01/06/2025 1:22 PM EDT [facility] Comment:Neutrophils equals s egs plus bands Imm Gran% 0.2 % 01/06/2025 1:22 PM EDT [facility] Comment:Automated count of m etamyelocytes, myelocytes and promyelocytes. Lymph Percent 28.1 % 01/06/2025 1:22 PM EDT [facility] [place] Percent 4.3 % 01/06/2025 1:22 PM EDT [facility] Eos Percent 1.8 % 01/06/2025 1:22 PM EDT [facility] Baso Percent 0.4 % 01/06/2025 1:22 PM EDT [facility] Neut # 3.3 1.6 - 6.1 x10(3)/mc L 01/06/2025 1:22 PM EDT [facility] Comment:Neutrophils equals s egs plus bands IMMGRAN# 0.0 0.0 - 0.1 x10(3)/mc L 01/06/2025 1:22 PM EDT [facility] Comment:Automated count of m etamyelocytes, myelocytes and promyelocytes. An absolute IG <0.1 is reported as 0.0. Lymph # 1.4 1.2 - 3.9 x10(3)/mc L 01/06/2025 1:22 PM EDT [facility] [place] # 0.2(L) 0.3 - 0.9 x10(3)/mc L 01/06/2025 1:22 PM EDT [facility] Eos# 0.1 0.0 - 0.5 x10(3)/mc L 01/06/2025 1:22 PM EDT [facility] Baso # 0.0 0.0 - 0.1 x10(3)/mc L 01/06/2025 1:22 PM EDT [facility] Blood VENOUS STRUCTURE / Unknown Port / Unknown 01/06/2025 1:13 PM EDT 01/06/2025 1:17 PM EDT Tacho Echavarria MD HEMATOLOGY ORDERABLES Final Result [facility] 1 [place] [address] documented in this encounter Visit Diagnoses Diagnosis 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)- Primary documented in this encounter Additional Health Concerns Assessment Noted Time PHQ-9 Depression Total Score: 17 07/07/2 024 8:39 AM EST PHQ-2 Depression Total Score: 5 07/07/20 8:39 AM EST documented as of this encounter Care Teams Hand Shoes Sewer Relationship Specialty [place] [address] [place] [address] PCP - General 06/21/10 Arlyn Schmidt MD [address] [place] [address] Consulting Physician Internal Medicine-Endocrinology, Diabetes & Metabolism 11/28/20 Tacho Echavarria MD 1 [place] [address] Internal Medicine-Medical Oncology 11/12/23 Matt Ulrich MD 1 [place] [id number] Surgery-Surgical Oncology 12/04/23 Eze Brock Pastoral Care 12/13/23 Annette Walker, ARACELI Product Craftsman 05/13/24 Batool Celis MD 1 [facility] [place] [address] Radiation Oncologist Radiology-Radiation Oncology 06/08/24 documented as of this encounter
--- OUTSIDE RECORDS SUMMARY | 2025-02-17 12:39 | XMS_ITS | Encounter Summary ---
Author [place] [address] Care Team Providers Care Silvering Department Supervisor Name Role Phone Chetna Cedeno MD Primary Care Provider [phone] Arlyn Schmidt MD Unavailable [phone] Tacho Echavarria MD Unavailable [phone] Matt Ulrich MD Unavailable [phone] Eze Brock Unavailable Annette Walker Unavailable [phone] Batool Celis MD Unavailable [phone] Reason for Visit * Reason Onset Date Comments Medication Refill 12/29/2024 Encounter Details Date Type Department Care Team (Late st Contact Info) Description 12/29/2024 Refill [facility] [address] [place] [address] [place] [address] [place] [address] Medication Refill Social History Tobacco [...] from your doctor or pharmacy? Never 11/07/2023 [facility] Utilities Answer Date Recorded In the [...] often do you attend chur ch or zoroastrian services? 1 to 4 times per year [...] 07/07/2024 [facility] of Occupat critical access hospitalal Health - Occupational Stress Questionnaire Answer [...] in a chcf (including now)? No 11/07/2023 [facility] IP Transportation Answer D ate [...] 12/06/2022 2:08 PM EDT Macarena Mraion CCMA documented as of this encounter Mental [...] 11:40 AM EDT Office Visit [facility] [place] [address] [place] [address] [place] [address] [place] [address] 03/02/2025 12:45 PM EDT Procedure visit [facility] [address] [place] [address] Samm Ledesma APRN [address] [facility] [place] [address] 03/10/2025 12:30 PM EDT Appointment [facility] [place], [place] [phone] 03/10/2025 1:00 PM EDT Appointment [place] [address] Tacho Echavarria MD [address] [place] [address] 04/29/2025 9:15 AM EDT Appointment [place] [address] Batool Celis MD [address] [place] [address] [place] [address] 05/19/2025 2:15 PM EST Office Visit [address] [address] Sin Tran MD [address] [place] [address] 08/12/2025 10:[address] [facility] Women's Wellness [facility] [place] [address] Matt Ulrich MD [address] [place] [address] [address] [place] [address] documented as of this encounter Goals Goal [...] documented as of this encounter Care Teams Silvering Department Supervisor Relationship Specialty [place] [address] [place] [address] PCP - General 06/21/10 Arlyn Schmidt MD [address] [place] [id number] Consulting Physician Internal Medicine-Endocrinology, Diabetes & Metabolism 11/28/20 Tacho Echavarria MD 1 [place] [address] Internal Medicine-Medical Oncology 11/12/23 Matt Ulrich MD 1 [place] [address] Surgery-Surgical Oncology 12/04/23 Eze Brock Pastoral Care 12/13/23 Annette Walker MSW Intercell Connector Placer 05/13/24 Batool Celis MD [address] [place] [address] [place] [address] Radiation Oncologist Radiology-Radiation Oncology 06/08/24 documented as of this encounter
--- OUTSIDE RECORDS SUMMARY | 2025-02-17 12:39 | XMS_ITS | Encounter Summary ---
Author Organization [place] [address] Care Team Providers Care Recoverer Name Role Phone Chetna Cedeno MD Primary Care Provider [phone] Arlyn Schmidt MD Unavailable [phone] Tacho Echavarria MD Unavailable [phone] Matt Ulrich MD Unavailable [phone] Eze Brock Unavailable Annette Walker Unavailable [phone] Batool Celis MD Unavailable [phone] Reason for Visit * Reason Comments Oncology Nurse Navigation Encounter Details Date Type Department Care Team (Late st Contact Info) Description 02/10/2025 Patient Outreach [facility] [place] [address] [place], [place] [phone] Tacho Echavarria MD [address] [place] [address] [phone] Oncology Nurse Navigation Social History Tobacco Use [...] time in the past 12 m [facility], were you homeless or living in a fpc (including now)? No 11/07/2023 [facility] IP Transportation Answer D [...] for student loan forgiveness for patient. * Shilpa Cline RN - 02/10/2025 9:13 AM EDT Navigation Assessment Chief complaint: Chief Complaint Patient presents with Oncology Nurse Navigation Current Status: Active Diagnosis: Breast Visit Type: Telephone - incoming Financial/Social Intervention: Patient called NN asking for a copy (printed for orange picker machine operator) of the letter that Dr. Echavarria wrote regarding the air conditioner and asked for an update on getting a letter to help with her student loanforgiveness. She is in the area today and is asking if she can come and orange picker machine operator these letters Theletter about the air conditioner looks like it need editing. NN will send message to clinic. Also dora thompson voicemail for Dr. Echavarria's nurse. Onc NN will continue to follow patient. documented in this encounter Plan of Treatment Upcoming Encounters Date Type Department Care Team (Late st Contact Info) Description 03/02/2025 11:40 AM EDT Office Visit [facility] [address] [place] [address] [place] [address] [place] [address] 03/02/2025 12:45 PM EDT Procedure visit [facility] [address] [place] [address] Samm Ledesma, HALL PORTER [address] [place], [place] [phone] 03/10/2025 12:30 PM EDT Appointment [place] [address] 03/10/2025 1:00 PM EDT Appointment [facility] [place] [address] Tacho Echavarria MD [address] [place] [address] 04/29/2025 9:15 AM EDT Appointment [facility] [place] [address] Batool Celis MD [address] [place] [address] [phone] 05/19/2025 2:15 PM EST Office Visit [place] [address] [place] [address] Sin Tran MD [address] [place] [address] 08/12/2025 10:40 AM EST Appointment [facility] Women's Wellness [place] One [facility] [place] [address] Matt Ulrich MD [address] [place] [address] DR [address] [place] [address] documented as of this encounter [...] documented as of this encounter Care Teams Recoverer Relationship Specialty [place] [address] [place] [address] PCP - General 06/21/10 Arlyn Schmidt MD [address] [place], [place] [phone] Consulting Physician Internal Medicine-Endocrinology, Diabetes & Metabolism 11/28/20 Tacho Echavarria MD 1 [place], [place] [phone] Internal Medicine-Medical Oncology 11/12/23 Matt Ulrich MD 1 [place], [place] [phone] Surgery-Surgical Oncology 12/04/23 Eze Brock Pastoral Care 12/13/23 Annette Walker, TOYS AND GAMES HAND FINISHER Trimmer Climber 05/13/24 Batool Celis MD 1 [facility] [place], [place] [phone] Radiation Oncologist Radiology-Radiation Oncology 06/08/24 documented as of this encounter
--- OUTSIDE RECORDS SUMMARY | 2025-02-17 12:39 | XMS_ITS | Encounter Summary ---
Author Organization [place] [address] Care Team Providers Care Track Laying Machine Operator Name Role Phone Chetna Cedeno MD Primary Care Provider [phone] Arlyn Schmidt MD Unavailable [phone] Tacho Echavarria MD Unavailable [phone] Matt Ulrich MD Unavailable [phone] Eze Brock Unavailable Annette Walker Unavailable [phone] Batool Celis MD Unavailable [phone] Encounter Details Date Type Department Care Team (Late st Contact Info) Description 02/10/2025 Orders Only [place] [address] Shilpa Cline, RN Social History Tobacco Use Types Packs/Day [...] Recorded In the past 12 months has [employer], oil, or water [employer] threatened to shut off services in your [...] 07/07/2024 [facility] of Occupat ional [facility] - Occupational Stress Questionnaire Answer Date Recorded [...] any time in the past 12 m [facility], were you homeless or living in a usp (including now)? No 11/07/2023 [facility] IP Transportation Answer D [...] AM EDT Office Visit [facility] [address] [place] [address] [place] [address] [place] [address] 03/02/2025 12:45 PM EDT Procedure visit [facility] [address] [place] [address] Samm Ledesma, OPERATIONS STAFF SPECIALIST SECURITY [address] [address] [place] [address] 03/10/2025 12:30 PM EDT Appointment [place] [address] 03/10/2025 1:00 PM EDT Appointment Cancer Care Medical Oncology [place], [place] [phone] Tacho Echavarria MD [address] [place] [address] 04/29/2025 9:15 AM EDT Appointment [place] [address] Batool Celis MD [address] [place] [address] CANCER CARE [place], [place] [phone] 05/19/2025 2:15 PM EST Office Visit [place] [address] [place] [address] Sin Tran MD [facility] [place] [id number] 08/12/2025 10:[address] [facility] Women's Wellness [place] One [facility] Em[place] [address] Matt Ulrich MD [address] [place] [address] [facility] [place] [address] documented as of this encounter Goals Goal Patient Goal Type Associated Problems Recent Progress Patient-Stated? Author Blood Pressure < 140/90 Blood Pressure 121/77(02/04 2:04 PM EDT) No Chetna Cedeno MD Breast [facility] Breast Health On track(2024 11:27 AM EDT) [...] documented as of this encounter Care Teams Track Laying Machine Operator Relationship Specialty [place] [address] [place] [address] PCP - General 06/21/10 Arlyn Schmidt MD [address] [place], [place] [phone] Consulting Physician Internal Medicine-Endocrinology, Diabetes & Metabolism 11/28/20 Tacho Echavarria MD 1 [place] [address] Internal Medicine-Medical Oncology 11/12/23 Matt Ulrich MD 1 [place] [address] Surgery-Surgical Oncology 12/04/23 Eze Brock Pastoral Care 12/13/23 Annette Walker, [facility] Children'S Service Worker 05/13/24 Batool Celis MD 1 [facility] [place] [address] Radiation Oncologist Radiology-Radiation Oncology 06/08/24 documented as of this encounter
--- OUTSIDE RECORDS SUMMARY | 2025-02-17 12:39 | XMS_ITS | Encounter Summary ---
Author Organization [place] [address] Care Team Providers Care Automotive Service Writer Name Role Phone Chetna Cedeno MD Primary Care Provider [phone] Arlyn Schmidt MD Unavailable [phone] Tacho Echavarria MD Unavailable [phone] Matt Ulrich MD Unavailable [phone] Eze Brock Unavailable Annette Walker Unavailable [phone] Batool Celis MD Unavailable [phone] Encounter Details Date Type Department Care Team (Late st Contact Info) Description 12/29/2024 Telephone [facility] Medical Oncology [place], [place] [id number] Tacho Echavarria MD [address] [place] [address] [id number] Social History Tobacco Use Types Packs/Day Years [...] doctor or pharmacy? Never 11/07/2023 [facility] Utilities Answer Date Recorded In [...] Date Recorded PHQ-2 Total Score 5 07/07/2024 [facility] of Occupat ional Health - Occupational Stress [...] in a half-way (including now)? No 11/07/2023 [facility] IP Transportation Answer D ate [...] AM EDT Office Visit [facility] [address] [place] [address] [place] [address] [place] [address] 03/02/2025 12:45 PM EDT Procedure visit [facility] [address] [facility] [address] [place] [address] Samm Ledesma, ENROLLMENT REPRESENTATIVE [address] [facility] [address] [place], [place] [id number] 03/10/2025 12:30 PM EDT Appointment [facility] [place], [place] [id number] 03/10/2025 1:00 PM EDT Appointment [facility] Medical Oncology [place], [place] [phone] Tacho Echavarria MD [address] [place] [address] [id number] 04/29/2025 9:15 AM EDT Appointment [facility] [address] Batool Celis MD [address] [place] [address] CANCER CARE [place] [id number] 05/19/2025 2:15 PM EST Office Visit [address] [address] Sin Tran MD [address] [place] [place] [address] 08/12/2025 10:40 AM EST Appointment [facility] Women's Wellness [place] [facility] [place] [address] Matt Ulrich MD [address] [place] [address] MUSA Z[place] [address] documented as of this encounter Goals Goal Patient Goal Type Associated Problems Recent Progress Patient-Stated? Author Blood Pressure < 140/90 Blood Pressure 121/77(02/04 2:04 PM EDT) No Chetna Cedeno MD [facility] On [facility](2024 11:27 AM EDT) No Jasmin Porter, RN Note: Patient acknowledges understanding of new diagnosis, plan of care, available resources and how to contact Nurse Navigator with any future questions or concerns. [facility] Not on track(2024 11:27 AM EDT) [...] MISC COMMENT Tiago 01/07/2025 7:35 AM EDT [facility] Blood VENOUS STRUCTURE / Unknown Port / Unknown 01/06/2025 1:13 PM EDT 01/07/2025 7:31 AM EDT Tacho Echavarria MD HEMATOLOGY ORDERABLES Final Result [facility] 1 [place], [place] [id number] documented in this encounter Visit Diagnoses Diagnosis [...] documented as of this encounter Care Teams Automotive Service Writer Relationship Specialty [place] [address] [place] [address] PCP - General 06/21/10 Arlyn Schmidt MD [address] [place] [address] Consulting Physician Internal Medicine-Endocrinology, Diabetes & Metabolism 11/28/20 Tacho Echavarria MD 1 [place] [address] Internal Medicine-Medical Oncology 11/12/23 Matt Ulrich MD 1 [place] [address] Surgery-Surgical Oncology 12/04/23 Eze Brock Pastoral Care 12/13/23 Annette Walker MSW Oxygen Plant Operator 05/13/24 Batool Celis MD 1 [facility] [address] Radiation Oncologist Radiology-Radiation Oncology 06/08/24 documented as of this encounter
--- OUTSIDE RECORDS SUMMARY | 2025-02-17 12:39 | XMS_ITS | Encounter Summary ---
Author Organization [place] [address] Care Team Providers Care Cigarette Machines Mechanic Name Role Phone Chetna Cedeno MD Primary Care Provider [phone] Arlyn Schmidt MD Unavailable [phone] Tacho Echavarria MD Unavailable [phone] Matt Ulrich MD Unavailable [phone] Eze Brock Unavailable Annette Walker Unavailable [phone] Batool Celis MD Unavailable [phone] Reason for Visit * Reason Onset Date Comments Medication Refill 12/29/2024 Encounter Details Date Type Department Care Team (Late st Contact Info) Description 12/29/[address] [address] Munir Hilton MD [address] [place] [address] Medication Refill Social History Tobacco Use Types [...] your doctor or pharmacy? Never 11/07/2023 [facility] Utilities Answer Date Recorded In [...] Total Score 5 07/07/2024 [facility] [place] of Occupat ional Health - Occupational [...] any time in the past 12 m [facility], were you homeless or living in a assisted (including now)? No 11/07/2023 [facility] IP Transportation Answer D ate [...] 11:40 AM EDT Office Visit [facility] [address] [place] [address] [place] [address] [place] [address] 03/02/2025 12:45 PM EDT Procedure visit [facility] [address] [facility] [address] [place] [address] Samm Ledesma, CONCRETE STONE FINISHING SUPERVISOR [address] [facility] [address] [place] [address] 03/10/2025 12:30 PM EDT Appointment [place] [address] 03/10/2025 1:00 PM EDT Appointment [facility] Medical Oncology [place], [place] [phone] Tacho Echavarria MD [address] [place] [address] 04/29/2025 9:15 AM EDT Appointment [facility] [place] [address] Batool Celis MD 1 [facility] [place] [address] 05/19/2025 2:15 PM EST Office Visit [address] 401 [facility] [address] [place] [address] Sin Tran MD [address] [place] [address] [place] [address] 08/12/2025 10:40 AM EST Appointment [facility] Women's Wellness [facility] [place] [id number] Matt Ulrich MD 20 [facility] [address] [place] [address] documented as of this encounter Goals Goal Patient Goal Type Associated Problems Recent Progress Patient-Stated? Author Blood Pressure < 140/90 Blood Pressure 121/77(02/04 2:04 PM EDT) No Chetna Cedeno MD [facility] Breast Health On track(2024 11:27 AM EDT) No Jasmin Porter, RN Note: Patient acknowledges understanding of new diagnosis, plan of care, available resources and how to contact Nurse Navigator with any future questions or concerns. Breast [facility] Breast Health Not on track(2024 [...] documented as of this encounter Care Teams Cigarette Machines Mechanic Relationship Specialty [place] [address] [place] [address] PCP - General 06/21/10 Arlyn Schmidt MD [address] [place] [address] Consulting Physician Internal Medicine-Endocrinology, Diabetes & Metabolism 11/28/20 Tacho Echavarria MD 1 [place], [place] [phone] Internal Medicine-Medical Oncology 11/12/23 Matt Ulrich MD 1 [place], [place] 07[address] Surgery-Surgical Oncology 12/04/23 Eze Brock Pastoral Care 12/13/23 Annette Walker, ARACELI Competitive Shopper 05/13/24 Batool Celis MD 1 [facility] [place] [address] Radiation Oncologist Radiology-Radiation Oncology 06/08/24 documented as of this encounter
--- OUTSIDE RECORDS SUMMARY | 2025-02-17 12:39 | XMS_ITS | Encounter Summary ---
Author Organization [place] [address] Care Team Providers Care Cellophane Casting Machine Repairer Name Role Phone Chetna Cedeno MD Primary Care Provider [phone] Arlyn Schmidt MD Unavailable [phone] Tacho Echavarria MD Unavailable [phone] Matt Ulrich MD Unavailable [phone] Eze Brock Unavailable Annette Walker Unavailable [phone] Batool Celis MD Unavailable [phone] Reason for Visit * Reason Onset Date Comments Medication Refill 02/08/2025 Encounter Details Date Type Department Care Team (Late st Contact Info) Description 02/08/2025 Refill [facility] Medical Oncology [place], [place] [id number] Tacho Echavarria MD [address] [place] [address] [id number] Medication Refill Social History Tobacco Use Types [...] in a residential (including now)? No 11/07/2023 [facility] IP Transportation Answer D ate [...] 11:40 AM EDT Office Visit [facility] [address] [place] [address] [place] [address] [place] [address] 03/02/2025 12:45 PM EDT Procedure visit [facility] [address] [facility] [address] [place] [address] Samm Ledesma, LEYLA [address] [facility] [address] [place] [address] 03/10/2025 12:30 PM EDT Appointment [place] [address] 03/10/2025 1:00 PM EDT Appointment [facility] [place] [address] Tacho Echavarria MD [address] [place] [address] [phone] 04/29/2025 9:15 AM EDT Appointment [facility] [address] Batool Celis MD [address] [place] [address] [place] [address] 05/19/2025 2:15 PM EST Office Visit [address] [facility] 1D [place] [address] Sin Tran MD [address] [place] [address] 08/12/2025 10:40 AM EST Appointment [facility] Women's Wellness [facility] [place] [address] Matt Ulrich MD [address] [place] [address] 254 [place] [address] documented as of this encounter Goals Goal [...] any future questions or concerns. Breast [facility] Breast Health Not on track(2024 [...] documented as of this encounter Care Teams Cellophane Casting Machine Repairer Relationship Specialty [place] [address] [place] [address] PCP - General 06/21/10 Arlyn Schmidt MD [address] [place] [address] Consulting Physician Internal Medicine-Endocrinology, Diabetes & Metabolism 11/28/20 Tacho Echavarria MD 1 [place] 2277117 Internal Medicine-Medical Oncology 11/12/23 Matt Ulrich MD 1 [place] 8[address]2017 Surgery-Surgical Oncology 12/04/23 Eze Brock Pastoral Care 12/13/23 Annette Walker, ROLL MILL OPERATOR Fiberglass Autobody Repairer 05/13/24 Batool Celis MD 1 [place] [address] Radiation Oncologist Radiology-Radiation Oncology 06/08/24 documented as of this encounter
--- OUTSIDE RECORDS SUMMARY | 2025-02-17 12:40 | XMS_ITS | Encounter Summary ---
Author Organization [place] [address] Care Team Providers Care Health Diagnostics Teacher Name Role Phone Chetna Cedeno MD Primary Care Provider [phone] Arlyn Schmidt MD Unavailable [phone] Tacho Echavarria MD Unavailable [phone] Matt Ulrich MD Unavailable [phone] Eze Brock Unavailable Annette Walker Unavailable [phone] Batool Celis MD Unavailable [phone] Reason for Referral * Genetic Lab Test (Routine) - Authorization Not Needed Specialty Diagnoses / Procedures Referred By Contac t Referred To Contact Lab Diagnoses 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) Procedures PHARMACOGENOMIC PANEL Aury Delgado MD 1 [place] [address] Phone: tel: fax: Referral ID Status Reason Start Date Expiration Date Visits Requested Visits Authorized [id number] Authorization Not Needed 01/21/2025 01/21/2026 1 1 Encounter Details Date Type Department Care Team (Late st Contact Info) Description 01/21/2025 Orders Only [facility] 1 [place] [address] Osvaldo Johnson, Clerical Staff Invasive ductal carcinoma [...] Date Recorded PHQ-2 Total Score 5 07/07/2024 [facility] [place] of Occupat ional Health - Occupational Stress [...] in a fdc (including now)? No 11/07/2023 [facility] Answer D ate [...] 11:40 AM EDT Office Visit [facility] [address] [place] [address] [place] [address] [place] [address] 03/02/2025 12:45 PM EDT Procedure visit [facility] [address] [facility] [address] [place] [address] Samm Ledesma, ORGANIC EXTRACTIONS TECHNICIAN [address] [facility] [address] [place] [address] 03/10/2025 12:30 PM EDT Appointment [place] [address] 03/10/2025 1:00 PM EDT Appointment Cancer Care Medical Oncology [place], [place] [phone] Tacho Echavarria MD [address] [place] [address] [phone] 04/29/2025 9:15 AM EDT Appointment [facility] [place] [address] Batool Celis MD [address] [facility] [place] [address] 05/19/2025 2:15 PM EST Office Visit [facility] [address] [place] [address] Sin Tran MD [address] [place] [address] 08/12/2025 10:40 AM EST Appointment [facility] Women's Wellness [place] [address] Matt Ulrich MD 20 [place] [address] documented as of this encounter Goals Goal [...] developed, and its performance characteristics determined by [facility], a clinical laboratory located at [address] [place] [address]. These tests have not been cleared or approved by the U.S. Food and Drug Administration. The FDA does not require this test to go through premarket FDA review. [facility] is certified under CLIA-88 and accredited by the [employer] as qualified to perform high-complexity testing. This test is approved for clinical use by the [facility] Department of [facility]. This test should not be regarded as investigational or for research. *Genomic DNA was analyzed by PCR using [employer] TaqMan and/or [employer] BHQ probe-based methods to interrogate the variant [...] are associated with more than one haplotype, [facility] infers and reports the most likely diplotype [...] Clara through the website or by calling [phone]. Blood 01/06/2025 01/22/2025 Narrative [facility] - 01/27/2025 This result has genomic variants that were not included in this document. 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)- Primary documented in this encounter Additional Health Concerns Assessment Noted Time PHQ-9 Depression Total Score: 17 024 8:39 AM EST PHQ-2 Depression Total Score: 5 07/07/20 24 8:39 AM EST documented as of this encounter Care Teams Health Diagnostics Teacher Relationship Specialty [place] [address] [place] [address] PCP - General 06/21/10 Arlyn Schmidt MD [address] [place] [address] Consulting Physician Internal Medicine-Endocrinology, Diabetes & Metabolism 11/28/20 Tacho Echavarria MD 1 [place] [phone] Internal Medicine-Medical Oncology 11/12/23 Matt Ulrich MD 1 [place] [id number] Surgery-Surgical Oncology 12/04/23 Eze Brock Pastoral Care 12/13/23 Annette Walker, [employer] WEBSPHERE COMMERCE CONSULTANT Diamond Polisher 05/13/24 Batool Celis MD 1 [facility] [place] [address] Radiation Oncologist Radiology-Radiation Oncology 06/08/24 documented as of this encounter
--- OUTSIDE RECORDS SUMMARY | 2025-02-17 12:40 | XMS_ITS | Clinical Summary ---
Author Organization [facility] Address [address] [place] [address] Phone Care Team Providers Care Technology Director Name Role Phone Chetna Cedeno MD Primary Care Provider [phone] Allergies Active Allergy Reactions Criticality Noted Date [...] EDT - 01/02/2025 7:27 PM EDT Emergency [facility] Emergency Department [address] [place] [address] Dallin Espinoza MD Heat exhaustion, [...] (ABNORMAL) BAMP (Na,K,Cl,CO2,Glu,BUN,Creat,Ca) (01/02/2025 5:13 PM EDT) [facility] BLD UREA NITROGEN 16 8 - 26 mg/dL [facility] [place] SODIUM 140 135 - 145 mmol/L [facility] POTASSIUM 3.2(L) 3.6 - 5.1 mmol/L [facility] [facility] CHLORIDE 107 98 - 111 mmol/L [facility] [facility] CO2 20(L) 21 - 31 mmol/L [facility] [facility] GLUCOSE, RANDOM 89 70 - 99 mg/dL [facility] [facility] CREATININE 1.06 0.60 - 1.20 mg/dL [facility] ANION GAP 13 4 - 16 mmol/L [facility] [facility] CALCIUM 9.0 8.5 - 10.4 mg/dL [facility] ESTIMATED GFR 61 >59 mL/min/1.7 3 m2 [facility] Comment: Estimated GFR was calculated using the CKD-EPI cr (2020) equation refit without race. The equation is recommended by the National Kidney Foundation - [place] Society of Nephrology Task Force. Tested at [place] [id number] Whole Blood 01/02/2025 5:13 PM EDT 01/02/2025 5:25 PM EDT Dallin Espinoza MD LAB BLOOD ORDERABLES Final Result [facility] [address] [place] [address] [place] [address] * (ABNORMAL) CBC w/ Diff (01/02/2025 5:13 PM EDT) [facility] WBC 7.1 3.6 - 10.5 THOU/[facility] [place] RBC 3.75(L) 3.80 - 5.20 MIL/mcL [facility] HEMOGLOBIN 11.2(L) 12.0 - 15.2 g/dL [facility] [facility] HEMATOCRIT 33.6(L) 36 - 46 % [facility] [facility] MCV 89.6 82 - 97 fL [facility] [facility] MCH 30.0 27 - 33 pg [facility] MCHC 33.5 32 - 36 g/dL [facility] RDW 16.0 12.3 - 17.0 % [facility] PLATELET 206 140 - 375 THOU/mcL [facility] MPV 6.9(L) 7.0 - 11.5 fL [facility] ABS. NEUTROPHIL 3.60 1.80 - 7.70 THOU/mcL [facility] [place] ABS LYMPHS 3.00 1.00 - 4.00 THOU/mcL [facility] [place] ABS MONOS 0.30 0.20 - 0.90 THOU/mcL [facility] [place] ABS EOS 0.10 0.03 - 0.45 THOU/mcL [facility] [place] ABS BASOS 0.10 0.00 - 0.20 THOU/mcL [facility] [place] SEGS 51 % [facility] [place] LYMPHOCYTES 43 % CHEMISTR Y NORTH MONOCYTES 4 % [facility] [place] EOSINOPHIL 1 % [facility] [place] BASOPHILS 1 % [facility] Comment:Tested at [facility] [address] [facility] [address] Whole Blood 01/02/2025 5:13 PM EDT 01/02/2025 5:25 PM EDT us Dallin Espinoza MD LAB BLOOD ORDERABLES Final Result [facility] [address] [place] [address] [facility] [address] [place] [address] * ECG 12 lead (01/02/2025 4:37 PM [...] QTcF 417 ms TH TRACEMASTER QRS Horizontal [place] -19 deg TH TRACEMASTER QRS AXIS 16 deg TH TRACEMASTER I-40 Horizontal [place] 46 deg TH TRACEMASTER I-40 FRONT AXIS -17 deg TH TRACEMASTER T-40 Horizontal [place] -50 deg TH TRACEMASTER T-40 Front [place] 51 deg TH TRACEMASTER T Horizontal L[place] 52 deg TH TRACEMASTER T WAVE AXIS 16 deg TH TRACEMASTER S-T Horizontal [place] 60 deg TH TRACEMASTER S-T Front [place] 24 deg TH TRACEMASTER ECG IMPRESSION - BORDERLINE ECG - TH TRACEMASTER ECG IMPRESSION SR-Sinus rhythm-normal P axis, V-rate 50-99 TH TRACEMASTER ECG IMPRESSION LVHVP-Probable left ventricular hypertrophy-mul tiple LVH criteria TH TRACEMASTER ECGGUID [id number] TH TRACEMASTER 01/02/2025 4:37 PM EDT us Dallin Espinoza MD ECG ORDERABLES Final Resu lt TH TRACEMASTER from Last 3 Months Insurance [facility] MEDICAID Care Teams Technology Director Relationship Specialty Start Date End Date Chetna Cedeno MD [facility] [address] [place] [address] PCP - General Family Medicine 01/02/25
--- OUTSIDE RECORDS SUMMARY | 2025-02-17 12:40 | XMS_ITS | Encounter Summary ---
Author Organization [place] [address] Care Team Providers Care Gasoline Engine Assembler Name Role Phone Chetna Cedeno MD Primary Care Provider [phone] Arlyn Schmidt MD Unavailable [phone] Tacho Echavarria MD Unavailable [phone] Matt Ulrich MD Unavailable [phone] Eze Brock Unavailable Annette Walker Unavailable [phone] Batool Celis MD Unavailable [phone] Encounter Details Date Type Department Care Team (Late st Contact Info) Description 01/28/2025 Orders Only [facility] Care Medical Oncology [place], [place] [id number] Tacho Echavarria MD [address] [place] [address] [id number] Invasive ductal carcinoma of breast, female, right [...] your doctor or pharmacy? Never 11/07/2023 [facility] Utilities Answer Date Recorded In [...] Date Recorded PHQ-2 Total Score 5 07/07/2024 [facility] [place] of Occupat ional Health - Occupational Stress [...] in a half-way (including now)? No 11/07/2023 [facility] IP Transportation Answer D ate Recorded In [...] 11:40 AM EDT Office Visit [facility] [place] [address] [place] [address] [place] [address] [place] [address] 03/02/2025 12:45 PM EDT Procedure visit [facility] [address] [place] [address] [id number] Samm Ledesma, FURNITURE REPRODUCER [address] [facility] [address] [facility] [address] [place], [place] [id number] 03/10/2025 12:30 PM EDT Appointment [facility] [place], [place] [id number] 03/10/2025 1:00 PM EDT Appointment [facility] Medical Oncology [place], [place] [phone] Tacho Echavarria MD [address] [place] [address] [phone] 04/29/2025 9:15 AM EDT Appointment [facility] RAD ONC [place], [place] [phone] Batool Celis MD [address] [place] [address] 05/19/2025 2:15 PM EST Office Visit [place] 0[address] [facility] [address] [place] [address] Sin Tarn MD [facility] [place] [address] 08/12/2025 10:40 AM EST Appointment [facility] Women's Wellness [place] [facility] [place] [address] Matt Ulrich MD [address] [place] [address] [address] [place] [address] documented as of this encounter [...] pg/mL 02/04/2025 4:31 PM EDT [facility] Folate 6.16 >=4.80 ng/mL 02/04/2025 4:31 PM EDT [facility] Blood VENOUS BLOOD / Unknown Venipuncture / Unknown 02/04/2025 2:03 PM EDT 02/04/2025 2:03 PM EDT Narrative [facility] - 02/04/2025 4:31 PM EDT Ingestion of haroon doses of biotin (>5 mg/day) taken within 8 hours of drawing blood sample can interfere with this immunoassay test. Tacho Echavarria MD CHEMISTRY ORDERABLES Final Result [facility] 1 [facility] , [place] [address] * (ABNORMAL) CBC WITH DIFF (02/04/2025 2:03 PM EDT) WBC 8.1 3.7 - 10.3 x10(3)/mc L 02/04/2025 2:07 PM EDT [facility] RBC 2.95(L) 3.90 - 5.20 x10(6)/mc L 02/04/2025 2:07 PM EDT [facility] Hgb 9.4(L) 11.2 - 15.7 g/dL 02/04/2025 2:07 PM EDT [facility] Hct 28.1(L) 34.0 - 45.0 % 02/04/2025 2:07 PM EDT [facility] MCV 95.3 80.0 - 100.0 fL 02/04/2025 2:07 PM EDT [facility] MCH 31.9 26.0 - 34.0 pg 02/04/2025 2:07 PM EDT [facility] MCHC 33.5 30.7 - 35.5 g/dL 02/04/2025 2:07 PM EDT [facility] RDW 15.0(H) <=14.9 % 02/04/2025 2:07 PM EDT [facility] Platelet 163 155 - 369 x10(3)/mc L 02/04/2025 2:07 PM EDT [facility] MPV 8.8 8.8 - 12.5 fL 02/04/2025 2:07 PM EDT [facility] Neut # Prelim 5.6 1.6 - 6.1 x10(3)/mc L 02/04/2025 2:07 PM EDT [facility] Comment:Preliminary automate d absolute neutrophil count. Value may change if manual differential is indicated. Neut Percent 68.4 % 02/04/2025 2:07 PM EDT [facility] Comment:Neutrophils equals s egs plus bands Imm Gran% 0.2 % 02/04/2025 2:07 PM EDT [facility] Comment:Automated count of m etamyelocytes, myelocytes and promyelocytes. Lymph Percent 23.4 % 02/04/2025 2:07 PM EDT [facility] [place] Percent 5.7 % 02/04/2025 2:07 PM EDT [facility] Eos Percent 2.1 % 02/04/2025 2:07 PM EDT [facility] Baso Percent 0.2 % 02/04/2025 2:07 PM EDT [facility] Neut # 5.6 1.6 - 6.1 x10(3)/mc L 02/04/2025 2:07 PM EDT [facility] Comment:Neutrophils equals s egs plus bands IMMGRAN# 0.0 0.0 - 0.1 x10(3)/mc L 02/04/2025 2:07 PM EDT [facility] Comment:Automated count of m etamyelocytes, myelocytes and promyelocytes. An absolute IG <0.1 is reported as 0.0. Lymph # 1.9 1.2 - 3.9 x10(3)/mc L 02/04/2025 2:07 PM EDT [facility] [place] # 0.5 0.3 - 0.9 x10(3)/mc L 02/04/2025 2:07 PM EDT [facility] Eos# 0.2 0.0 - 0.5 x10(3)/mc L 02/04/2025 2:07 PM EDT [facility] Baso # 0.0 0.0 - 0.1 x10(3)/mc L 02/04/2025 2:07 PM EDT [facility] Blood VENOUS BLOOD / Unknown Venipuncture / Unknown 02/04/2025 2:03 PM EDT 02/04/2025 2:03 PM EDT us Tacho Echavarria MD HEMATOLOGY ORDERABLES Final Result Performing Organization Address [facility]/ZIP Co de Phone Number [facility] [address] [place] [phone] * IRON+TIBC (02/04/2025 2:02 PM EDT) Pathologist [facility] Iron 82 30 - 160 mcg/dL 02/04/2025 2:59 PM EDT [facility] Transferrin 279 200 - 360 mg/dL 02/04/2025 2:59 PM EDT [facility] Trans[facility]in Saturation 21 20 - 50 % 02/04/2025 2:59 PM EDT [facility] TIBC 391 250 - 400 mcg/dL 02/04/2025 2:59 PM EDT [facility] Blood VENOUS BLOOD / Unknown Venipuncture / Unknown 02/04/2025 2:02 PM EDT 02/04/2025 2:02 PM EDT us Tacho Echavarria MD CHEMISTRY ORDERABLES Final Result Performing Organization Address [facility]/ZIP Co de Phone Number [facility] [address] [place] [address] [facility] [address] [facility], [place] [address] * (ABNORMAL) COMPREHENSIVE METABOLIC PANEL (02/04/2025 2:02 PM EDT) Pathologist [facility] Sodium 142 136 - 145 mmol/L 02/04/2025 2:28 PM EDT [facility] Potassium 3.3(L) 3.5 - 5.0 mmol/L 02/04/2025 2:28 PM EDT [facility] Chloride 108(H) 98 - 107 mmol/L 02/04/2025 2:28 PM EDT [facility] Total CO2 19(L) 22 - 29 mmol/L 02/04/2025 2:28 PM EDT [facility] Anion Gap 15 7 - 16 mmol/L 02/04/2025 2:28 PM EDT [facility] Calcium 8.6 8.6 - 10.4 mg/dL 02/04/2025 2:28 PM EDT [facility] Glucose Lvl 134(H) 70 - 99 mg/dL 02/04/2025 2:28 PM EDT [facility] BUN 12 6 - 20 mg/dL 02/04/2025 2:28 PM EDT [facility] Creatinine 0.78 0.51 - 1.30 mg/dL 02/04/2025 2:28 PM EDT [facility] Albumin 3.8 3.5 - 5.2 gm/dL 02/04/2025 2:28 PM EDT [facility] Total Protein 6.0(L) 6.4 - 8.3 gm/dL 02/04/2025 2:28 PM EDT [facility] Bili Total 0.3 0.2 - 1.3 mg/dL 02/04/2025 2:28 PM EDT [facility] ALT 8 <=41 U/L 02/04/2025 2:28 PM EDT [facility] AST 12 <=40 U/L 02/04/2025 2:28 PM EDT [facility] Alk Phos 95 36 - 123 U/L 02/04/2025 2:28 PM EDT [facility] eGFR (CKD-EPIcr 2020) 88 >=60 mL/min/1.7 3 m2 02/04/2025 2:28 PM EDT [facility] Comment:Estimated GFR was ca lculated using the CKD-EPIcr (2020) equation refit without race. The equation is recommended by the National Kidney Foundation - [place] [employer] of Nephrology Task Force. Blood VENOUS BLOOD / Unknown Venipuncture / Unknown 02/04/2025 2:02 PM EDT 02/04/2025 2:02 PM EDT Tacho Echavarria MD CHEMISTRY ORDERABLES Final Result [facility] [address] [place] [phone] documented in this encounter Visit Diagnoses Diagnosis Invasive ductal carcinoma of breast, female, right (HCC)- Primary documented in this encounter Additional Health Concerns Assessment Noted Time PHQ-9 Depression Total Score: 17 024 8:39 AM EST PHQ-2 Depression Total Score: 5 07/07/20 24 8:39 AM EST documented as of this encounter Care Teams Gasoline Engine Assembler Relationship Specialty [place] [address] [place] [phone] PCP - General 06/21/10 Arlyn Schmidt MD [address] [place], [place] [phone] Consulting Physician Internal Medicine-Endocrinology, Diabetes & Metabolism 11/28/20 Tacho Echavarria MD 1 [place], [place] [phone] Internal Medicine-Medical Oncology 11/12/23 Matt Ulrich MD 1 [place], [place] [phone] Surgery-Surgical Oncology 12/04/23 Eze Brock Pastoral Care 12/13/23 Annette Walker, ARACELI Cigar Head Perforator 05/13/24 Batool Celis MD 1 [facility] [place] [address] Radiation Oncologist Radiology-Radiation Oncology 06/08/24 documented as of this encounter
--- OUTSIDE RECORDS SUMMARY | 2025-02-17 12:40 | XMS_ITS | Encounter Summary ---
Author Organization [place] [address] Care Team Providers Care Fast Food Restaurant Manager Name Role Phone Chetna Cedeno MD Primary Care Provider [phone] Arlyn Schmidt MD Unavailable [phone] Tacho Echavarria MD Unavailable [phone] Matt Ulrich MD Unavailable [phone] Eze Brock Unavailable Annette Walker Unavailable [phone] Batool Celis MD Unavailable [phone] Reason for Visit * Reason Comments Pharmacy Migraine Medication Management Qulipta Encounter Details Date Type Department Care Team (Latest Contact Info) Description 01/28/2025 Specialty Pharmacy [facility] [address] [place] [address] Sheridan Arellano CPhT Pharmacy Migraine [...] th e electric, gas, oil, or water [employer] threatened to shut off services in your [...] Date Recorded PHQ-2 Total Score 5 07/07/2024 [facility] of Occupat ional Health - Occupational [...] time in the past 12 m [facility], were you homeless or living in a usp (including now)? No 11[facility]07[facility]2023 [facility] IP [...] refills of Qulipta. Copay amount: $0 Sent [employer] message. Patient informed of copay. * Aaliyah [...] AM EDT Office Visit [facility] [place] [address] [place] [address] [place] [address] [place] [address] 03/02/2025 12:45 PM EDT Procedure visit [facility] [address] [place] [address] Samm Ledesma APRN [address] [facility] [address] [place] [address] 03/10/2025 12:30 PM EDT Appointment [place] [address] 03/10/2025 1:00 PM EDT Appointment [facility] [place] [address] Tacho Echavarria MD [address] [place] [address] 04/29/2025 9:15 AM EDT Appointment [facility] [place] [address] Batool Celis MD [address] [place] [address] [place] [address] 05/19/2025 2:15 PM EST Office Visit [address] [address] Sin Tran MD [address] [place] [address] 08/12/2025 10:[address] [facility] Women's Wellness [facility] [place] [address] Matt Ulrich MD [address] [place] [address] [address] [place] [address] documented as of this encounter Goals Goal [...] documented as of this encounter Care Teams Fast Food Restaurant Manager Relationship Specialty [place] [address] [place] [address] PCP - General 06/21/10 Arlyn Schmidt MD [address] [place] [address] Consulting Physician Internal Medicine-Endocrinology, Diabetes & Metabolism 11/28/20 Tacho Echavarria MD 1 [place] [address] Internal Medicine-Medical Oncology 11/12/23 Matt Ulrich MD 1 [place] [address] Surgery-Surgical Oncology 12/04/23 Eze Brock Pastoral Care 12/13/23 Annette Walker MSW V Belt Skiver 05/13/24 Batool Celis MD 1 [facility] [place] [address] Radiation Oncologist Radiology-Radiation Oncology 06/08/24 documented as of this encounter
--- OUTSIDE RECORDS SUMMARY | 2025-02-17 12:40 | XMS_ITS | Encounter Summary ---
Author Organization [place] [address] Care Team Providers Care Java Front End Web Developer Name Role Phone Chetna Cedeno MD Primary Care Provider [phone] Arlyn Schmidt MD Unavailable [phone] Tacho Echavarria MD Unavailable [phone] Matt Ulrich MD Unavailable [phone] Eze Brock Unavailable Annette Walker Unavailable [phone] Batool Celis MD Unavailable [phone] Reason for Visit * Reason Onset Date Comments Patient Question 01/28/2025 question about test result Encounter Details Date Type Department Care Team (Late st Contact Info) Description 01/28/2025 Telephone [facility] Care Medical Oncology [place], [place] [phone] Tacho Echavarria MD [address] [place] [address] [phone] Patient Question (question about test result ) [...] from your doctor or pharmacy? Never 11/07/2023 [facility] Utilities Answer Date Recorded In the [...] Date Recorded PHQ-2 Total Score 5 07/07/2024 [facility] of Occupat ional Health - Occupational [...] a nursing home (including now)? No 11/07/2023 [facility] IP Transportation Answer [...] results are in and forwarded to . [employer] message sent to patient, no need to move appt up sooner at this time. * Telephone Encounter - Sendy Waddell NA - 01/28/2025 10:43 AM EDT Reason for call: [facility], said it was something to do withDNA and what medications to take. Said she was unable to read results and was calling to see if anything needed to be done or if she was ok to wait until her appt. Preferred call back number: [phone] documented in this encounter Plan of Treatment Upcoming Encounters Date Type Department Care Team (Late st Contact Info) Description 03/02/2025 11:40 AM EDT Office Visit [facility] [place] [address] [place] [address] [place] [address] [place] [address] 03/02/2025 12:45 PM EDT Procedure visit [facility] [address] [place] [address] Samm Ledesma, SENIOR STAFF ACCOUNTANT [address] [facility] 100 [place] [address] 03/10/2025 12:30 PM EDT Appointment [facility] [place], [place] [phone] 03/10/2025 1:00 PM EDT Appointment [place] [address] Tacho Echavarria MD [address] [place] [address] [id number] 04/29/2025 9:15 AM EDT Appointment [facility] RAD ONC [place], [place] [phone] aBtool Celis MD [address] [place] [address] 05/19/2025 2:15 PM EST Office Visit [address] [address] Sin Tran MD [address] [place] [address] 08/12/2025 10:40 AM EST Appointment [facility] Women's Wellness [facility] [place] [address] Matt Ulrich MD [address] [place] [address] documented as of this encounter Goals Goal [...] documented as of this encounter Care Teams Java Front End Web Developer Relationship Specialty [place] [address] [place] [address] PCP - General 06/21/10 Arlyn Schmidt MD [address] [place] [address] Consulting Physician Internal Medicine-Endocrinology, Diabetes & Metabolism 11/28/20 Tacho Echavarria MD 1 [place] [address] Internal Medicine-Medical Oncology 11/12/23 Matt Ulrich MD 1 [place] [address] Surgery-Surgical Oncology 12/04/23 Eze Brock Pastoral Care 12/13/23 Annette Walker MSW Relocation Commissioner 05/13/24 Batool Celis MD [address] [place] [address] [place] [address] Radiation Oncologist Radiology-Radiation Oncology 06/08/24 documented as of this encounter
--- OUTSIDE RECORDS SUMMARY | 2025-02-17 12:40 | XMS_ITS | Clinical Summary ---
Author Organization [facility] Address [address] [place] [address] Phone Care Team Providers Care Antenna Installer Name Role Phone Outside, Provider Unavailable [phone] Conditions or Problems No information available. Medications No information available. Medications Administered No information available. Allergies, Adverse Reactions, Alerts No information available. Results No information available. Plan of Care No information available. Procedures No information available. Vital Signs No information available. Immunizations No information available. Advance Directives No information available.
--- OUTSIDE RECORDS SUMMARY | 2025-02-17 12:40 | XMS_ITS | Encounter Summary ---
Author Organization [place] [address] Care Team Providers Care Commercial Hvac Service Technician Name Role Phone Chetna Cedeno MD Primary Care Provider [phone] Arlyn Schmidt MD Unavailable [phone] Tacho Echavarria MD Unavailable [phone] Matt Ulrich MD Unavailable [phone] Eze Brock Unavailable Annette Walker Unavailable [phone] Batool Celis MD Unavailable [phone] Encounter Details Date Type Department Care Team (Latest Contact Info) Description 01/27/2025 Results Follow-Up [facility] 1 [place] [address] Benito Snell, PharmD PHARMACOGENOMIC PANEL [...] 07/07/2024 [facility] of Occupat ional [facility] - Occupational Stress Questionnaire Answer [...] in a detention (including now)? No 11/07/2023 [facility] IP Transportation Answer [...] AM EDT Office [place] [address] [place] [address] [place] [address] [place] [address] 03/02/2025 12:45 PM EDT Procedure visit [facility] [address] [facility] [address] [place] [address] Samm Ledesma, INDUSTRIAL RELATIONS COUNSELOR [address] [address] [place], [place] [phone] 03/10/2025 12:30 PM EDT Appointment [facility] [place] [address] 03/10/2025 1:00 PM EDT Appointment [facility] Medical Oncology [place], [place] [phone] Tacho Echavarria MD [address] [place] [address] [id number] 04/29/2025 9:15 AM EDT Appointment [facility] [place] [address] Batool Celis MD [address] [place] [address] CANCER CARE [place], [place] [phone] 05/19/2025 2:15 PM EST Office Visit [address] [place] [address] Sin Tran MD [address] [place], [place] [address], [place] [address] 08/12/2025 10:40 AM EST Appointment [facility] Women's Wellness [place] [facility] [place] [address] Matt Ulrich MD [address] [place] [address] documented as of this encounter Goals [...] Diagnoses Diagnosis CYP2B6 intermediate metabolizer (HCC)- Primary [id number] rapid metabolizer (HCC) 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 Primary hypercoagulable state documented in this encounter Additional Health Concerns Assessment Noted Time PHQ-9 Depression Total Score: 17 024 8:39 AM EST PHQ-2 Depression Total Score: 5 07/07/20 24 8:39 AM EST documented as of this encounter Care Teams Commercial Hvac Service Technician Relationship Specialty [place] [address] [place] [address] PCP - General 06/21/10 Arlyn Schmidt MD [address] [place] [address] Consulting Physician Internal Medicine-Endocrinology, Diabetes & Metabolism 11/28/20 Tacho Echavarria MD 1 [place], [place] [phone] Internal Medicine-Medical Oncology 11/12/23 Matt Ulrich MD 1 [place], [place] [phone] Surgery-Surgical Oncology 12/04/23 Eze Brock Pastoral Care 12/13/23 Annette Walker, AIRCRAFT POWER PLANT ASSEMBLER Full Service Supervisor 05/13/24 Batool Celis MD 1 [facility] [place] [address] Radiation Oncologist Radiology-Radiation Oncology 06/08/24 documented as of this encounter
--- OUTSIDE RECORDS SUMMARY | 2025-02-17 12:40 | XMS_ITS | Encounter Summary ---
Author Organization [place] [address] Care Team Providers Care Applications Engineer Manufacturing Name Role Phone Chetna Cedeno MD Primary Care Provider [phone] Arlyn Schmidt MD Unavailable [phone] Tacho Echavarria MD Unavailable [phone] Matt Ulrich MD Unavailable [phone] Eze Brock Unavailable Annette Walker Unavailable [phone] Batool Celis MD Unavailable [phone] Reason for Visit * Reason Comments Medication Refill Encounter Details Date Type Department Care Team (Late st Contact Info) Description 01/15/2025 Refill SEP Timoteo MERRITT [address] [place] [address] [place] [address] [place] [address] Medication Refill Social History Tobacco [...] from your doctor or pharmacy? Never 11/07/2023 [facility] Utilities Answer Date Recorded [...] in the past 12 m [facility], were you homeless or living in a long term (including now)? No 11/07/2023 [facility] IP Transportation Answer D ate Recorded [...] 11:40 AM EDT Office Visit ROMULO Mahmood [address] [place] [address] [place] [address] [place] [address] 03/02/2025 12:45 PM EDT Procedure visit [facility] [address] [facility] [address] [place] [address] Samm Ledesma, ENGINEER THIRD ASSISTANT [address] [facility] [address] [place] [address] 03/10/2025 12:30 PM EDT Appointment [facility] [place] [address] 03/10/2025 1:00 PM EDT Appointment [facility] [place] [address] Tacho Echavarria MD [address] [place] [address] 04/29/2025 9:15 AM EDT Appointment [facility] [place] [place] [id number] Batool Celis MD [address] [facility] [place] [address] 05/19/2025 2:15 PM EST Office Visit [facility] [address] [place] [address] [address] [facility] [address] [place] [address] Sin Tran MD [address] [place] [address] [place] [address] 08/12/2025 10:[address] [facility] Women's Wellness [facility] Emilee Solomon [facility]17 Matt Ulrich MD 20 [facility] 254 [place] [address] documented as of this encounter Goals Goal [...] documented as of this encounter Care Teams Applications Engineer Manufacturing Relationship Specialty Start [place] [address] [address] [facility] [phone] PCP - General 06/21/10 Arlyn Schmidt MD [address] [place], [place] [id number] Consulting Physician Internal Medicine-Endocrinology, Diabetes & Metabolism 11/28/20 Tacho Echavarria MD 1 [place] [address] Internal Medicine-Medical Oncology 11/12/23 Matt Ulrich MD [address], [place] 17[address]317 Surgery-Surgical Oncology 12/04/23 Eze Brock Pastoral Care 12/13/23 Annette Walker, PROFILE GRINDER TECHNICIAN Civil Engineer'S Aide 05/13/24 Batool Celis MD 1 [facility] [place] [address] Radiation Oncologist Radiology-Radiation Oncology 06/08/24 documented as of this encounter
--- OUTSIDE RECORDS SUMMARY | 2025-02-17 12:40 | XMS_ITS | Encounter Summary ---
Author Organization [place] [address] Care Team Providers Care Chemical Laboratory Scientist Name Role Phone Chetna Cedeno MD Primary Care Provider [phone] Arlyn Schmidt MD Unavailable [phone] Tacho Echavarria MD Unavailable [phone] Matt Ulrich MD Unavailable [phone] Eze Brock Unavailable Annette Walker Unavailable [phone] Batool Celis MD Unavailable [phone] Reason for Visit * Reason Comments Oncology Nurse Navigation Encounter Details Date Type Department Care Team (Late st Contact Info) Description 01/29/2025 Patient Outreach [facility] TUMOR [address] [place], [place] [id number] Shilpa Cline, RN Oncology Nurse Navigation Social [...] Never 11/07/2023 [facility] Utilities Answer Date Recorded In the past 12 months has th e electric, gas, oil, or water [employer] threatened to shut off services in your [...] Date Recorded PHQ-2 Total Score 5 07/07/2024 [facility] [place] of Occupat ional Health - Occupational Stress [...] a skilled nursing (including now)? No 11/07/2023 [facility] IP Transportation Answer D ate [...] 11:40 AM EDT Office Visit ROMULO MERRITT [address] [place] [address] [place] [address] [place] [address] 03/02/2025 12:45 PM EDT Procedure visit [facility] [address] [facility] [address] [place] [address] Samm Ledesma APRN [address] [facility] [address] [place] [address] 03/10/2025 12:30 PM EDT Appointment [facility] [address] 03/10/2025 1:00 PM EDT Appointment [facility] [place] [address] Tacho Echavarria MD [address] [place] [address] 04/29/2025 9:15 AM EDT Appointment [facility] [place] [address] Batool Celis MD 1 [facility] [place] [place] [address] 05/19/2025 2:15 PM EST Office Visit [facility] [address] [place] [address] 401 [facility] 1D [place] [address] Sin Tran MD [address] [place] [address] 08/12/2025 10:40 AM EST Appointment [facility] Women's Wellness [facility] [place] [address] Matt Ulrich MD [address] [place] [address] 254 [place] [address] documented as of this encounter Goals Goal [...] documented as of this encounter Care Teams Chemical Laboratory Scientist Relationship Specialty [place] [address] [place] [address] PCP - General 06/21/10 Arlyn Schmidt MD [address] [place] [address] Consulting Physician Internal Medicine-Endocrinology, Diabetes & Metabolism 11/28/20 Tacho Echavarria MD 1 [place], [place] [phone] Internal Medicine-Medical Oncology 11/12/23 Matt Ulrich MD 1 [place] [address] Surgery-Surgical Oncology 12/04/23 Eze Brock Pastoral Care 12/13/23 Annette Walker MSW Lamp Assembler 05/13/24 Batool Celis MD 1 [facility] [place] [place] [address] Radiation Oncologist Radiology-Radiation Oncology 06/08/24 documented as of this encounter
--- OUTSIDE RECORDS SUMMARY | 2025-02-17 12:40 | XMS_ITS | Encounter Summary ---
Author Organization [place] [address] Care Team Providers Care Armored Cable Machine Operator Name Role Phone Chetna Cedeno MD Primary Care Provider [phone] Arlyn Schmidt MD Unavailable [phone] Tacho Echavarria MD Unavailable [phone] Matt Ulrich MD Unavailable [phone] Eze Brock Unavailable Annette Walker SOFTWARE ENGINEER WEB APPLICATIONS Unavailable [phone] Batool Celis MD Unavailable [phone] Encounter Details Date Type Department Care Team (Late st Contact Info) Description 01/29/2025 Social Work [facility] Cancer Care [facility] [place] [address] Sonny Fleming, SOFTWARE ENGINEER WEB APPLICATIONS Social History Tobacco Use Types Packs/Day Years [...] th e electric, gas, oil, or water [employer] threatened to shut off services in your [...] Recorded PHQ-2 Total Score 5 07/07/2024 [facility] [place] of Occupat ional Health - Occupational Stress [...] in a halfway (including now)? No 11/07/2023 [facility] IP Transportation Answer D ate [...] - 01/29/2025 3:12 PM EDT 01/29/25 1511 Grinding Operator Assessment Referred By phone call Disease/[place] Site Lamination Technician Assignment Breast cancer Referral Location: [facility] Reason for Referral transportation Identified Needs Adjustment to illness;Transportation Social Work Interventions Transportation;Brief Couseling/Support;Education/Information FARHAD Romo received a call from pt stating that she is in need of a waiver for transportation from her health insurance as she is not feeling well enough to drive to her appointments. DIRECTOR RECORDS MANAGEMENT followed up with MAGAN Reid to discuss [...] 11:40 AM EDT Office Visit ROMULO MERRITT [address] [place] [address] [place] [address] [place] [address] 03/02/2025 12:45 PM EDT Procedure visit [facility] [address] [facility] [address] [place] [address] Samm Ledesma, EXECUTIVE ADVISOR [address] [facility] [address] [place] [address] 03/10/2025 12:30 PM EDT Appointment [facility] [place], [place] [phone] 03/10/2025 1:00 PM EDT Appointment Cancer Care Medical Oncology [place], [place] 1565[address] Tacho Echavarria MD [address] [place] [id number] 04/29/2025 9:15 AM EDT Appointment [place] [address] Batool Celis MD [address] [place] [address] [place] [address] 05/19/2025 2:15 PM EST Office Visit [address] [address] Sin Tran MD [address] [place] [address] 08/12/2025 10:40 AM EST Appointment [facility] Women's Wellness [facility] [place] [address] Matt Ulrich MD [address] [place] [address] 254 [place] [address] documented as of this encounter Goals Goal [...] documented as of this encounter Care Teams Armored Cable Machine Operator Relationship Specialty [place] [address] [place] [address] PCP - General 06/21/10 Arlyn Schmidt MD [address] [place] [id number] Consulting Physician Internal Medicine-Endocrinology, Diabetes & Metabolism 11/28/20 Tacho Echavarria MD 1 [place] [address] Internal Medicine-Medical Oncology 11/12/23 Matt Ulrich MD 1 [place] [address] Surgery-Surgical Oncology 12/04/23 Eze Brock Pastoral Care 12/13/23 Annette Walker MSW Lamination Technician 05/13/24 Batool Celis MD [address] [place] [address] [place] [address] Radiation Oncologist Radiology-Radiation Oncology 06/08/24 documented as of this encounter
--- OUTSIDE RECORDS SUMMARY | 2025-02-17 12:40 | XMS_ITS | Encounter Summary ---
Author Organization [place] [address] Care Team Providers Care Cafeteria Manager Name Role Phone Chetna Cedeno MD Primary Care Provider [phone] Arlyn Schmidt MD Unavailable [phone] Tacho Echavarria MD Unavailable [phone] Matt Ulrich MD Unavailable [phone] Eze Brock Unavailable Annette Walker Unavailable [phone] Batool Celis MD Unavailable [phone] Encounter Details Date Type Department Care Team (Late st Contact Info) Description 01/18/2025 Telephone Cancer Care Medical Oncology [place], [place] [address] Tacho Echavarria MD [address] [place] [address] [id number] Social History Tobacco Use Types Packs/Day Years [...] PHQ-2 Total Score 5 07/07/2024 [facility] [place] of Occupat ional Health - Occupational Stress [...] a care home (including now)? No 11/07/2023 [facility] IP Transportation Answer D ate Recorded [...] her apartment. Letter created and sent through [employer] documented in this encounter Plan of Treatment Upcoming Encounters Date Type Department Care Team (Late st Contact Info) Description 03/02/2025 11:40 AM EDT Office Visit ROMULO MERRITT [address] [place] [address] [place] [address] [place] [address] 03/02/2025 12:45 PM EDT Procedure visit [facility] [address] [facility] [address] [place] [address] Samm Ledesma APRN [address] [facility] [address] [place] [address] 03/10/2025 12:30 PM EDT Appointment [place] [address] 03/10/2025 1:00 PM EDT Appointment [facility] [place] [address] Tacho Echavarria MD 1 [place] [address] 04/29/2025 9:15 AM EDT Appointment [facility] [place] [place] [address] Batool Celis MD [address] [facility] [place] [address] 05/19/2025 2:15 PM EST Office Visit [facility] [address] [place] [address] [address] [place] [address] Sin Tran MD [address] [place] [address] 08/12/2025 10:40 AM EST Appointment [facility] Women's Wellness [facility] [place] [address] Matt Ulrich MD [address] [facility] 254 [place] [address] documented as of this encounter Goals Goal [...] documented as of this encounter Care Teams Cafeteria Manager Relationship Specialty [place] [address] [place] [address] PCP - General 06/21/10 Arlyn Schmidt MD [facility] [address] [place], [place] [address] Consulting Physician Internal Medicine-Endocrinology, Diabetes & Metabolism 11/28/20 Tacho Echavarria MD [address] [place] [address] Internal Medicine-Medical Oncology 11/12/23 Matt Ulrich MD [address] [place] [address] Surgery-Surgical Oncology 12/04/23 Eze Brock Pastoral Care 12/13/23 Annette Walker MSW Erp Pm 05/13/24 Batool Celis MD [address] [place] [address] [place] [address] Radiation Oncologist Radiology-Radiation Oncology 06/08/24 documented as of this encounter
--- OUTSIDE RECORDS SUMMARY | 2025-02-17 12:40 | XMS_ITS | Encounter Summary ---
Author Organization [place] [address] Care Team Providers Care Coring Machine Operator Name Role Phone Chetna Cedeno MD Primary Care Provider [phone] Arlyn Schmidt MD Unavailable [phone] Tacho Echavarria MD Unavailable [phone] Matt Ulrich MD Unavailable [phone] Eze Brock Unavailable Annette Wlaker Unavailable [phone] Batool Celis MD Unavailable [phone] Reason for Visit * Reason Comments Medication Refill Encounter Details Date Type Department Care Team (Late st Contact Info) Description 01/15/2025 Refill [facility] [address] [facility] [address] [place] [address] Samm Ledesma, APPLICATIONS INSTRUCTOR [address] [place] [address] Medication Refill Social History Tobacco Use Types [...] your doctor or pharmacy? Never 11/07/2023 [facility] Utilities Answer Date Recorded [...] often do you attend chur ch or hoahaoism services? 1 to 4 times per year [...] 07/07/2024 [facility] of Occupat ional Health - [...] a skilled nursing (including now)? No 11/07/2023 [facility] IP Transportation Answer D ate [...] encounter Miscellaneous Notes * Telephone Encounter - Keynona Alfonso MA - 01/18/2025 10:03 AM EDT [...] 11:40 AM EDT Office Visit ROMULO Mahmood [address] [place] [address] [place] [address] [place] [address] 03/02/2025 12:45 PM EDT Procedure visit [facility] [address] [facility] [address] [place] [address] Samm Ledesma APRN [address] [place] [address] 03/10/2025 12:30 PM EDT Appointment [facility] [place], [place] [phone] 03/10/2025 1:00 PM EDT Appointment [place] [address] Tacho Echavarria MD [address] [place] [address] 04/29/2025 9:15 AM EDT Appointment [facility] RAD ONC [place], [place] [phone] Batool Celis MD [address] [place] [address] [place] [address] 05/19/2025 2:15 PM EST Office Visit [address] [address] Sin Tran MD [address] [place] [address] 08/12/2025 10:40 AM EST Appointment [facility] Women's Wellness [facility] [place] [address] Matt Ulrich MD [address] [place] [address] documented as of this encounter Goals Goal [...] documented as of this encounter Care Teams Coring Machine Operator Relationship Specialty [place] [address] [place] [address] PCP - General 06/21/10 Arlyn Schmidt MD [address] [place] [address] Consulting Physician Internal Medicine-Endocrinology, Diabetes & Metabolism 11/28/20 Tacho Echavarria MD 1 [place], [place] [address] Internal Medicine-Medical Oncology 11/12/23 Matt Ulrich MD 1 [place] [address] Surgery-Surgical Oncology 12/04/23 Eze Brock Pastoral Care 12/13/23 Annette Walker MSW Documentation Engineer 05/13/24 Batool Celis MD [address] [facility] [place] [address] Radiation Oncologist Radiology-Radiation Oncology 06/08/24 documented as of this encounter
--- OUTSIDE RECORDS SUMMARY | 2025-02-17 12:41 | XMS_ITS | Encounter Summary ---
Author Organization [place] [address] Care Team Providers Care High School Home Economics Teacher Name Role Phone Chetna Cedeno MD Primary Care Provider [phone] Arlyn Schmidt MD Unavailable [phone] Tacho Echavarria MD Unavailable [phone] Matt Ulrich MD Unavailable [phone] Eze Brock Unavailable Annette Walker Unavailable [phone] Batool Celis MD Unavailable [phone] Reason for Visit * Reason Comments [facility] Encounter Details Date Type Department Care Team (Latest Contact Info) Description 02/02/2025 Specialty Pharmacy [facility] [address] [place] [address] Kevin Chacon PharmD Pharmacy [facility] Med[facility] Social History Tobacco Use Types [...] th e electric, gas, oil, or water [employer] threatened to shut off services in your [...] Date Recorded PHQ-2 Total Score 5 07/07/2024 [facility] Issue of Occupat ional Health - Occupational Stress [...] in the past 12 m [facility], were you homeless or living in a fpc (including now)? No 11/07/2023 [facility] IP [...] Chacon PharmD - 02/02/2025 1:39 PM EDT [facility] Prescription received for Nurtec (75mg). Prescription requires prior authorization. Will complete clinical review. Patient will not need IA if able to fill here (continuation of therapy). * Kevin Chacon PharmD - 02/02/2025 1:39 PM EDT [facility] - Migraine Clinical Review El [...] into the lungs daily. fluticasone propionate 1 [place] by Nasal route daily. Aerochamber MV 1 [facility]Non-Drug; Combo Route) route as needed. ketorolac Take [...] Monson CPhT - 02/02/2025 1:39 PM EDT [facility] Prior [facility]ization [facility] to [employer] insurance via [employer] ([place] [id number]). Will follow up on 02/04. * Annamarie Mark CPhT - 02/02/2025 1:39 PM EDT [facility] Prior Authorization Determination Received notice of PA approval for [facility] . PA approved from 02/02/2025 to 05/05/2025. Patient is able to fill at [facility]. Copay is $0. No answer, left voicemail to call [phone], option 4. Initial assessment not needed for [...] AM EDT Office Visit [facility] [address] [place] [address] [place] [address] [place] [address] 03/02/2025 12:45 PM EDT Procedure visit [facility] [address] [facility] [address] [place] [address] Samm Ledesma APRN [address] [facility] [facility] [address] [place] [address] 03/10/2025 12:30 PM EDT Appointment [place] [address] 03/10/2025 1:00 PM EDT Appointment [facility] [place] [address] Tacho Echavarria MD [address] [place] [id number] 04/29/2025 9:15 AM EDT Appointment [facility] [place] [address] Batool Celis MD [address] [facility] [place] [address] 05/19/2025 2:15 PM EST Office Visit [facility] [address] [place] [address] Sin Tran MD [address] [place] [address] [place] [address] 08/12/2025 10:40 AM EST Appointment [facility] Women's Wellness [place] One [facility] [place] [address] Matt Ulrich MD [address] [address] documented as of this encounter [...] documented as of this encounter Care Teams High School Home Economics Teacher Relationship Specialty [place] [address] [place] [address] PCP - General 06/21/10 Arlyn Schmidt MD [address] [place], [place] [phone] Consulting Physician Internal Medicine-Endocrinology, Diabetes & Metabolism 11/28/20 Tacho Echavarria MD 1 [place], [place] [address] Internal Medicine-Medical Oncology 11/12/23 Matt Ulrich MD 1 [place], [place] [address] Surgery-Surgical Oncology 12/04/23 Eze Brock Pastoral Care 12/13/23 Annette Walker, COURT OFFICER Logging Engineer 05/13/24 Batool Celis MD 1 [facility] CANCER [place], [place] [address] Radiation Oncologist Radiology-Radiation Oncology 06/08/24 documented as of this encounter
--- OUTSIDE RECORDS SUMMARY | 2025-02-17 12:41 | XMS_ITS | Encounter Summary ---
Author Organization [place] [address] Care Team Providers Care Gray Mixing Operator Name Role Phone Kit Cedeno MD Primary Care Provider [phone] Arlyn Schmidt MD Unavailable [phone] Cheryl Nair RN Unavailable [phone] Tacho Echavarria MD Unavailable [phone] Matt Ulrich MD Unavailable [phone] Hilary Clemens RN Unavailable Unavaila Eze Caro Unavailable Shila Albrecht RN Unavailable Unavail able Cheyanne To RN Unavailable Unavailabl Rayna Wong RN Unavailable Unavailab Shilpa Olivarez RN Unavailable [phone] Tulio Duong RN Unavailable Unavailable Yaquelin Weaver RN Unavailable Unavailable Pam Wang RN Unavailable Unavailable Jazmín Nair RN Unavailable Unavailable Fidel Rainey RN Unavailable Unavailable Cheryl Nair RN Unavailable [phone] Ophelia Lala RN Unavailable Glo Lee RN Unavailable Unavailab Sanam Evans NETWORK ENGINEERING ADVISOR Unavailable Unavailable Hilary Clemens RN Unavailable Unavaila Ruthy Clayton RN Unavailable Unavailable Rayna Partida RN Unavailable Unavailab Artur Nelson RN Unavailable Unavailable Annette Walker NETWORK ENGINEERING ADVISOR Unavailable [phone] Emmie Crain RN Unavailable Unavailable Brigida Enriquez RN Unavailable Unavailable Fidel Rainey RN Unavailable Unavailable Batool Celis MD Unavailable [phone] Encounter Details Date Type Department Care Team (Late st Contact Info) Description 10/25/2023 Orders Only [facility] One [facility] [place] [address] Diane Ellis MD 1 [place] [address] Social History Tobacco Use Types [...] 11:40 AM EDT Office Visit SEP Mahmood [address] [place] [address] [place] [address] [place] [address] 03/02/2025 12:45 PM EDT Procedure visit [facility] NEUROLOGY HECTOR [address] [facility] [address] [place] [address] Samm Ledesma, AUTOMOTIVE PARTS COUNTER ASSOCIATE [address] [facility] [address] [place] [address] 03/10/2025 12:30 PM EDT Appointment [facility] [place], [place] [id number] 03/10/2025 1:00 PM EDT Appointment [facility] On[facility] [place], [place] 7904017 Tacho Echavarria MD [address] [place] [address] [id number] 04/29/2025 9:15 AM EDT Appointment [facility] RAD ONC One [place], [place] [id number] Batool Celis MD 1 [facility] [place] [address] 05/19/2025 2:15 PM EST Office Visit [facility] [address] [place] [address] [address] [place] [address] Sin Tran MD [address] [place] [address] 08/12/2025 10:40 AM EST Appointment [facility]ness [place] [facility] [place] [address] Matt Ulrich MD 20 [facility] 254 [place], [place] [id number] documented as of this encounter Goals Goal [...] EDT) 10/25/2023 10:4 4 AM EDT Narrative [facility] - 11/11/2023 2:42 PM EDT Requesting Provider: KIT Womack Specimen = [id number] us Diane Ellis MD PATHOLOGY ORDERABLES Final Resul t H LAB 1 [place], [place] [id number] documented in this encounter Visit Diagnoses Not on filedocumented in this encounter Additional Health Concerns Infection Onset Date Last Indicated Resolved Time COVID-19 09/04/2024 09/04/2024 09/24/2024 10:1 2 PM EDT documented as of this encounter Care Teams Gray Mixing Operator Relationship Specialty [place] [address] [place] [address] PCP - General 06/21/10 Arlyn Schmidt MD [address] [place] [address] Consulting Physician Internal Medicine-Endocrinolog y, Diabetes & Metabolism 11/28/20 Cheryl Nair RN Oncology Nurse Navigator 10/29/2302/05 Tacho Echavarria MD 1 [place], [place] [id number] Internal Medicine-Medical Oncology 11/12/23 Matt Ulrich MD 1 [place] [address] Surgery-Surgical Oncology 12/04/23 Hilary Clemens, RN Registered [...] Nurse Infusion Therapy 04/03/24 04/03/24 Sanam Murray, [facility] Scalehouse Attendant 04/10/24 07/30/24 Hilary Clemens, RN Registered Nurse Infusion Therapy 04/21/24 04/21/24 Ruthy Walker RN Registered Nurse Infusion Therapy 04/24/24 04/24/24 Rayna Partida, RN Registered Nurse Infusion Clinic 05/01/24 05/01/24 Artur Roberts RN Registered Nurse Infusion Therapy 05/07/24 05/07/24 Annette Walker, NETWORK ENGINEERING ADVISOR Scalehouse Attendant 05/13/24 Emmie Crain, RN Registered Nurse Infusion Therapy 05/14/24 05/14/24 Brigida Enriquez, RN Registered Nurse Infusion Clinic 05/21/24 05/21/24 Fidel Rainey, RN Registered Nurse Infusion Therapy 05/28/24 05/28/24 Batool Celis MD [address] [place] [address] [place] [address] Radiation Oncologist Radiology-Radiation Oncology 06/08/24 documented as of this encounter
--- OUTSIDE RECORDS SUMMARY | 2025-02-17 12:41 | XMS_ITS | Encounter Summary ---
Author Organization [place] [address] Care Team Providers Care Sole Stainer Name Role Phone Chetna Cedeno MD Primary Care Provider [phone] Arlyn Schmidt MD Unavailable [phone] Tacho Echavarria MD Unavailable [phone] Matt Ulrich MD Unavailable [phone] Eze Brock Unavailable Annette Walker Unavailable [phone] Batool Celis MD Unavailable [phone] Reason for Visit * Reason Onset Date Comments Follow-up 12/23/2024 Encounter Details Date Type Department Care Team (Late Contact Info) Description 12/23/2024 Telephone [facility] Pets are family too MED & GENETICS 1 [place], [place] [id number] Tacho Echavarria MD 1 [place], [place] [id number] Follow-up Social History Tobacco Use Types Packs/Day [...] your doctor or pharmacy? Never 11/07/2023 [facility] Utilities Answer Date Recorded In [...] Date Recorded PHQ-2 Total Score 5 07/07/2024 [facility] [...] in a usp (including now)? No 11/07/2023 [facility] IP Transportation [...] is disconnected, no HIPAA on file. Sent JethroData message for pt to call [phone] schedule appointment and update personal info. * Telephone Encounter - Rosana Gupta RN - 12/23/2024 1:22 PM EDT Patient needs to get loretta draws every 3 months. [employer] system shows the kit was mailed to [...] 11:40 AM EDT Office Visit [facility]UL[facility] Timoteo [address] [place] [address] [place] [address] [place] [address] 03/02/2025 12:45 PM EDT Procedure visit [facility] NEUROLOGY HECTOR [address] [facility] [address] [place] [address] Samm Ledesma, LEYLA [address] [facility] [address] [place] [address] 03/10/2025 12:30 PM EDT Appointment [place] [address] 03/10/2025 1:00 PM EDT Appointment [facility] [place] [address] Tacho Echavarria MD [address] [place] [address] 04/29/2025 9:15 AM EDT Appointment [facility] [address] Batool Celis MD [address] [place] [address] [place] [address] 05/19/2025 2:15 PM EST Office Visit [facility] [address] [place] [address] [address] [facility] [address] [place] [address] Sin Tran MD [address] [facility] [place] [address] 08/12/2025 10:40 AM EST Appointment [facility] Women's Wellness [place] [address] Matt Ulrich MD [address] [place] [address] 254 [place] [address] documented as of this encounter Goals Goal [...] documented as of this encounter Care Teams Sole Stainer Relationship Specialty [place] [address] [place] [address] PCP - General 06/21/10 Arlyn Schmidt MD [address] [place], [place] 13566[address] Consulting Physician Internal Medicine-Endocrinology, Diabetes & Metabolism 11/28/20 Tacho Echavarria MD 1 [place], [place] 8671917 Internal Medicine-Medical Oncology 11/12/23 Matt Ulrich MD 1 [place], [place] 5195017 Surgery-Surgical Oncology 12/04/23 Eze Brock Pastoral Care 12/13/23 Annette Walker, ENVIRONMENTAL SERVICES TECHNICIAN Demand Generation Manager 05/13/24 Batool Celis MD 1 [place], [place] [address] Radiation Oncologist Radiology-Radiation Oncology 06/08/24 documented as of this encounter
--- OUTSIDE RECORDS SUMMARY | 2025-02-17 12:41 | XMS_ITS | Encounter Summary ---
Author Organization [place] [address] Care Team Providers Care Wharf Builder Name Role Phone Chetna Cedeno MD Primary Care Provider [phone] Arlyn Schmitd MD Unavailable [phone] Tacho Echavarria MD Unavailable [phone] Matt Ulrich MD Unavailable [phone] Eez Brock Unavailable Annette Walker Unavailable [phone] Batool Celis MD Unavailable [phone] Reason for Visit * Reason Onset Date Comments Other 02/01/2025 Currently inpati ent at [facility] Encounter Details Date Type Department Care Team (Late st Contact Info) Description 02/01/2025 Telephone [facility] On[facility] [place], [place] [phone] Tacho Echavarria MD [address] [place] [address] [id number] Other (Currently inpatient at [facility] ) Social History Tobacco Use Types Packs/Day [...] often do you attend chur ch or mormon services? 1 to 4 times per year [...] Date Recorded PHQ-2 Total Score 5 07/07/2024 [facility] - Occupational [...] senior care (including now)? No 11/07/[address] [facility] IP Transportation Answer D ate [...] to let know she was admitted to [facility] on Saturday and is still there.Has blood clot in lung and potassium was 2.5 Preferred call back number: [phone] documented in this encounter Plan of Treatment Upcoming Encounters Date Type Department Care Team (Late st Contact Info) Description 03/02/2025 11:40 AM EDT Office Visit SEP Timoteo [address] [place] [address] [place] [address] [place] [address] 03/02/2025 12:45 PM EDT Procedure visit [facility]G NEUROLOGY HECTOR [address] [facility] [place] [address] Samm Ledesma, TRACK GRINDER OPERATOR [address] [facility] [address] [place] [address] 03/10/2025 12:30 PM EDT Appointment [place] [address] 03/10/2025 1:00 PM EDT Appointment [facility] [place] [address] Tacho Echavarria MD [address] [place] [address] 04/29/2025 9:15 AM EDT Appointment [place] [address] Batool Celis MD [address] [place] [address] [place] [address] 05/19/2025 2:15 PM EST Office Visit [address] [address] Sin Tran MD [address] [place] [address] 08/12/2025 10:40 AM EST Appointment [facility] Women's Wellness [facility] [place] [address] Matt Ulrich MD [address] [place] [address] 254 [place] [address] documented as of this encounter Goals Goal [...] documented as of this encounter Care Teams Wharf Builder Relationship Specialty [place] [address] [place] [address] PCP - General 06/21/10 Arlyn Schmidt MD [address] [place] [address] Consulting Physician Internal Medicine-Endocrinology, Diabetes & Metabolism 11/28/20 Tacho Echavarria MD 1 [place] [phone] Internal Medicine-Medical Oncology 11/12/23 Matt Ulrich MD 1 [place] [address] Surgery-Surgical Oncology 12/04/23 Eze Brock Pastoral Care 12/13/23 Annette Walker MSW Dental Insurance Coordinator 05/13/24 Batool Celis MD 1 [facility] [place] [address] Radiation Oncologist Radiology-Radiation Oncology 06/08/24 documented as of this encounter
--- OUTSIDE RECORDS SUMMARY | 2025-02-17 12:41 | XMS_ITS | Encounter Summary ---
Author Organization [place] [address] Care Team Providers Care Paper And Pulp Mill Worker Name Role Phone Kit Cedeno MD Primary Care Provider [phone] Arlyn Schmidt MD Unavailable [phone] Cheryl Nair RN Unavailable [phone] Tacho Echavarria MD Unavailable [phone] Matt Ulrich MD Unavailable [phone] Hilary Clemens RN Unavailable Unavaila Eze Caro Unavailable Shila Albrecht RN Unavailable Unavail able Cheyanne To RN Unavailable Unavailabl Rayna Wong RN Unavailable Unavailab Shilpa Olivarez RN Unavailable [phone] Tulio Duong RN Unavailable Unavailable Yaquelin Weaver RN Unavailable Unavailable Pam Wang RN Unavailable Unavailable Jazmín Nair RN Unavailable Unavailable Fidel Rainey RN Unavailable Unavailable Cheryl Nair RN Unavailable [phone] Ophelia Lala RN Unavailable Glo Lee RN Unavailable Unavailab Saanm Evans COOK VACUUM KETTLE Unavailable Unavailable Hilary Clemens RN Unavailable Unavaila Ruthy Clayton RN Unavailable Unavailable Rayna Partida RN Unavailable Unavailab Artur Nelson RN Unavailable Unavailable Annette Walker COOK VACUUM KETTLE Unavailable [phone] Emmie Crain RN Unavailable Unavailable Brigida Enriquez RN Unavailable Unavailable Fidel Rainey RN Unavailable Unavailable Batool Celis MD Unavailable [phone] Encounter Details Date Type Department Care Team (Late st Contact Info) Description 10/25/2023 Orders Only [facility] LABORATORY One [facility] [place] [address] Diane Ellis MD 1 [place] [address] Social History Tobacco Use Types [...] 11:40 AM EDT Office Visit SEP Mahmood [address] [place] [address] [place] [address] [place] [address] 03/02/2025 12:45 PM EDT Procedure visit [facility]G NEUROLOGY HECTOR [address] [facility] [address] [place] [address] Samm Ledesma, CARDIAC CATH LAB MANAGER [address] [facility] [address] [place] [address] 03/10/2025 12:30 PM EDT Appointment [facility] CANCER CTR [place], [place] 5633817 03/10/2025 1:00 PM EDT Appointment [facility] Oncology [place], [place] 2605417 Tacho Echavarria MD [address] [place] [address] [id number] 04/29/2025 9:15 AM EDT Appointment [facility] CANCER CTR RAD ONC One [place], [place] 8801917 Batool Celis MD 1 [facility] [place] [address] 05/19/2025 2:15 PM EST Office Visit [facility] [address] [place] [address] 401 [facility] 1D [place] [address] Sin Tran MD [address] [place] [address] 08/12/2025 10:40 AM EST Appointment [facility] Women's Wellness [place] [facility] [place] [address] Matt Ulrich MD 20 [facility] 254 [place], [place] 139[address]17 documented as of this encounter Goals Goal [...] EDT) 10/25/2023 10:4 4 AM EDT Narrative [facility] LAB - 11/01/2023 3:02 PM EDT Requesting Provider: KIT Womack Specimen = [id number] us Diane Ellis MD PATHOLOGY ORDERABLES Final Resul t [facility] 1 [place], [place] 0396517 documented in this encounter Visit Diagnoses Not on filedocumented in this encounter Additional Health Concerns Infection Onset Date Last Indicated Resolved Time COVID-19 09/04/2024 09/04/2024 09/24/2024 10:1 2 PM EDT documented as of this encounter Care Teams Paper And Pulp Mill Worker Relationship Specialty [place] [address] [place] [address] PCP - General 06/21/10 Arlyn Schmidt MD [address] [place] [address] Consulting Physician Internal Medicine-Endocrinolog y, Diabetes & Metabolism 11/28/20 Cheryl Nair RN Oncology Nurse Navigator 10/29/2302/05 Tacho Echavarria MD 1 [place], [place] 7911117 Internal Medicine-Medical Oncology 11/12/23 Matt Ulrich MD 1 [place], [place] 9221517 Surgery-Surgical Oncology 12/04/23 Hilary Clemens, RN Registered [...] Nurse Infusion Therapy 04/03/24 04/03/24 Sanam Murray, [facility] Mathematics Instructor 04/10/24 07/30/24 Hilary Clemens, RN Registered Nurse Infusion Therapy 04/21/24 04/21/24 Ruthy Walker RN Registered Nurse Infusion Therapy 04/24/24 04/24/24 Rayna Partida, RN Registered Nurse Infusion Clinic 05/01/24 05/01/24 Artur Roberts RN Registered Nurse Infusion Therapy 05/07/24 05/07/24 Annette Walker, COOK VACUUM KETTLE Mathematics Instructor 05/13/24 Emmie Crain, RN Registered Nurse Infusion Therapy 05/14/24 05/14/24 Brigida Enriquez, RN Registered Nurse Infusion Clinic 05/21/24 05/21/24 Fidel Rainey, RN Registered Nurse Infusion Therapy 05/28/24 05/28/24 Batool Celis MD [address] [place] [address] [place] [address] Radiation Oncologist Radiology-Radiation Oncology 06/08/24 documented as of this encounter
--- OUTSIDE RECORDS SUMMARY | 2025-02-17 12:41 | XMS_ITS | Encounter Summary ---
Author Organization [place] [address] Care Team Providers Care Maintenance Supervisor 2Nd Shift Name Role Phone Chetna Cedeno MD Primary Care Provider Arlyn Schmidt MD Unavailable [phone] Tacho Echavarria MD Unavailable Matt Ulrich MD Unavailable Eze Brock Unavailable Cheryl Nair RN Unavailable [phone] Sanam Murray LUMBER CUTTER Unavailable Unavailable Annette Walker LUMBER CUTTER Unavailable [phone] Batool Celis MD Unavailable [phone] Encounter Details Date Type Department Care Team (Late st Contact Info) Description 07/06/2024 Orders Only [facility] LABORATORY One [facility] [address] [place] [address] Shilpa Tan MD [address] [place] [phone]- Social History Tobacco Use Types Packs/Day Years [...] Date Recorded PHQ-2 Total Score 5 07/07/2024 [facility] Occupat ional Health - Occupational [...] any time in the past 12 [facility], were you homeless or living in a assisted (including now)? No 11/07/2023 [facility] IP [...] Assessment Author No Risk 07/06/2024 4:32 PM Kayal Lee RN * Teller Suicide Severity Rating Scale (Q shift for [...] 11:40 AM EDT Office Visit ROMULO MERRITT [address] [place] [address] [place] [address] [address] [place] [address] 03/02/2025 12:45 PM EDT Procedure visit [facility]G NEUROLOGY HECTOR [address] [place], [place] 04[address] Samm Ledesma, FINANCIAL INVESTIGATOR [address] [address] [place], [place] [address] 03/10/2025 12:30 PM EDT Appointment [place] [address] 03/10/2025 1:00 PM EDT Appointment [facility] [place] [address] Tacho Echavarria MD [address] [place] [address] [id number] 04/29/2025 9:15 AM EDT Appointment [place] [address] Batool Celis MD [address] [place] [address] [place] [address] 05/19/2025 2:15 PM EST Office Visit [address] [address] Sin Tran MD [address] [place] [address] 08/12/2025 10:40 AM EST Appointment [facility] Women's Wellness [facility] [place] [id number] Matt Ulrich MD [address] [place] [address] documented as of this encounter Goals Goal Patient Goal Type Associated Problems Recent Progress Patient-Stated? Author Blood Pressure < 140/90 Blood Pressure 121/77(02/04 2:04 PM EDT) No Chetna Cedeno MD Breast [facility] Breast Health On track(2024 11:27 AM EDT) No Jasmin Porter, RN Note: Patient acknowledges understanding of new diagnosis, plan of care, available resources and how to contact Nurse Navigator with any future questions or concerns. Breast [facility] Breast Health Not on track(2024 11:27 [...] EST) 07/06/2024 12:5 1 PM EST Narrative [facility] - 09/24/2024 2:57 PM EDT Requesting Provider: MATT Womack Specimen = [id number] us Shilpa Tan MD PATHOLOGY ORDERABLES Final R esult [facility] 1 [place] [address] documented in this encounter Visit Diagnoses Not on filedocumented in this encounter Additional Health Concerns Infection Onset Date Last Indicated Resolved Time COVID-19 09/04/2024 09/04/2024 09/24/2024 10:1 2 PM EDT Assessment Noted Time PHQ-9 Depression Total Score: 12 03/16/ 024 12:00 PM EDT documented as of this encounter Care Teams Maintenance Supervisor 2Nd Shift Relationship Specialty [place] [address] [place] [address] PCP - General 06/21/10 Arlyn Schmidt MD [address] [place], [place] 15428[address] Consulting Physician Internal Medicine-Endocrinology , Diabetes & Metabolism 11/28/20 Tacho Echavarria MD 1 [place] [address] Internal Medicine-Medical Oncology 11/12/23 Matt Ulrich MD 1 [place], [place] 83[address] Surgery-Surgical Oncology 12/04/23 Eze Brock Pastoral Care 12/13/23 Cheryl Nair, RN Oncology Nurse Navigator 03/25/2412/13 Sanam Murray MSW Railroad Auditor 04/10/24 07/30/24 Annette Walker MSW Railroad Auditor 05/13/24 Batool Celis MD 1 [facility] [place] [address] Radiation Oncologist Radiology-Radiation Oncology 06/08/24 documented as of this encounter
--- OUTSIDE RECORDS SUMMARY | 2025-02-17 12:41 | XMS_ITS | Encounter Summary ---
Author [place] [address] Care Team Providers Care Ccu Nurse Name Role Phone Chetna Cedeno MD Primary Care Provider [phone] Leslie Cooley SPECIAL NEEDS CAREGIVER Unavailable UnaBatool Talley NODULIZER Unavailable Unavailab Arlyn Disla MD Unavailable [phone] Cheryl Nair RN Unavailable [phone] Tacho Echavarria MD Unavailable [phone] Matt Ulrich MD Unavailable [phone] Hilary Clemens RN Unavailable Unavaila Eze Caro Unavailable Shila Albrecht RN Unavailable Unavail able Cheyanne To RN Unavailable UnavailRayna Johnson RN Unavailable Unavailab Shilpa Olivarez RN Unavailable [phone] Tulio Duong RN Unavailable Unavailable Yaquelin Weaver RN Unavailable Unavailable Pam Wang RN Unavailable Unavailable Jazmín Nair RN Unavailable Unavailable Fidel Rainey RN Unavailable Unavailable Cheryl Nair RN Unavailable [phone] Ophelia Lala RN Unavailable Glo Lee RN Unavailable Unavailab Sanam Evans FREIGHT DISPATCHER Unavailable Unavailable Hilary Clemens RN Unavailable Unavaila Ruthy Clayton RN Unavailable Unavailable Rayna Partida RN Unavailable Unavailab Artur Nelson RN Unavailable Unavailable Annette Walker FREIGHT DISPATCHER Unavailable [phone] Emmie Crain RN Unavailable Unavailable Brigida Enriquez RN Unavailable Unavailable Fidel Rainey RN Unavailable Unavailable Batool Celis MD Unavailable [phone] Encounter Details Date Type Department Care Team (Late st Contact Info) Description 07/12/2015 Orders Only [facility] [address] [facility] [address] [place] [phone] Stone Cronin MD Social History Tobacco Use [...] 11:40 AM EDT Office Visit [facility] [address] 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 [address] [place] [address] 03/10/2025 12:30 PM EDT Appointment [place] [address] 03/10/2025 1:00 PM EDT [facility]ointment [facility] [place] [address] Tacho Echavarria MD [address] [place] [address] 04/29/2025 9:15 AM EDT Appointment [facility] [place] [place] [address] Batool Celis MD [address] [facility] [place] [address] 05/19/2025 2:15 PM EST Office Visit [facility] [address] [facility] [address] [place] [address] Sin Tran MD [facility] [place] [address] 08/12/2025 10:40 AM EST Appointment [facility] [place] [address] Matt Ulrich MD [address] [facility] [address] [place] [address] documented as of this encounter Procedures Procedure Name Priority Date/Time Associated Diagnosis Comments [facility] COLONOS[facility] Routine 07/12/2015 2:30 PM EST documented in this encounter Results * [facility] COLONOS[facility] (07/12/2015 2:30 PM EST) 07/12/2015 2:30 PM EST Impressions [facility] LAB - 07/12/2015 3:30 PM EST [...] ORDERABLES Doris [email or web address] Result [facility] [address] [place] [address] documented in this encounter Visit Diagnoses Not [...] documented as of this encounter Care Teams Ccu Nurse Relationship Specialty [place] [address] [place] [id number] PCP - General 06/21/10 Leslie Cooley, SPECIAL NEEDS CAREGIVER Police Communications Dispatcher 01/28/19 07/15/19 Batool Myers NODULIZER Police Communications Dispatcher 02/13/19 07/15/19 Arlyn Schmidt MD [facility] [place], [place] [id number] Consulting Physician Internal Medicine-Endocrinolog y, Diabetes & Metabolism 11/28/20 Cheryl Nair, RN Oncology Nurse Navigator 10/29/2302/05 Tacho Echavarria MD [address] [place] [address] Internal Medicine-Medical Oncology 11/12/23 Matt Ulrich MD [address] [facility] [address] Surgery-Surgical Oncology 12/04/23 Hilary lCemens, RN Registered Nurse Infusion Therapy 12/05/23 12/05/23 [...] Nurse Infusion Therapy 04/03/24 04/03/24 Sanam Murray, FREIGHT DISPATCHER Police Communications Dispatcher 04/10/24 07/30/24 Hilary Clemens, RN Registered Nurse Infusion Therapy 04/21/24 04/21/24 Ruthy Walker RN Registered Nurse Infusion Therapy 04/24/24 04/24/24 Rayna Partida, RN Registered Nurse Infusion Clinic 05/01/24 05/01/24 Artur Roberts RN Registered Nurse Infusion Therapy 05/07/24 05/07/24 Aaron Annette, FREIGHT DISPATCHER Police Communications Dispatcher 05/13/24 Emmie Crain, RN Registered Nurse Infusion Therapy 05/14/24 05/14/24 Brigida Enriquez, RN Registered Nurse Infusion Clinic 05/21/24 05/21/24 Fidel Rainey, RN Registered Nurse Infusion Therapy 05/28/24 05/28/24 Batool Celis MD [address] [place] [address] [place] [address] Radiation Oncologist Radiology-Radiation Oncology 06/08/24 documented as of this encounter
--- OUTSIDE RECORDS SUMMARY | 2025-02-17 12:41 | XMS_ITS | Clinical Summary ---
Author Organization SHAUNNA SANBLESSING OD Address [facility] [place] [address] Phone Care Team Providers Care Project Internship Name Role Phone Chetna Cedeno MD Primary Care Provider [phone] Arlyn Schmidt MD Unavailable [phone] Tacho Echavarria MD Unavailable [phone] Matt Ulrich MD Unavailable [phone] Eze Brock Unavailable Annette Walker TOOL AND DIE MAKER/DESIGNER Unavailable [phone] Batool Celis MD Unavailable [phone] Allergies Active Allergy Reactions Criticality Noted Date [...] (AEROCHAMBER MV) Mis Spacer 1 Each by [facility]Non-Drug; Combo Route) route as needed. 1 Device 11/18/19 20 Active tiZANidine (ZANAFLEX) 4 mg Oral TabletIndication s:Chronic migraine without aura, intractable, with status migrainosus Take 1 tab nightly for cervicogenic headache and 1/2 tab daily prn for breakthrough pain. DO NOT TAKE AND DRIVE 45 Tablet 5 11/16/19 23 Active MAGIC MOUTHWASH (LIDO/DIPHEN/[place] TAT) ORAL COMPOUNDIndicati ons:Mucositis Swish and Swallow 15 mL by mouth every 3 to 4 hours as needed for Other. This is a compounded RX (Nystatin Susp 200ml, Diphenhydramine 170ml, Lidocaine 2% 50ml, Maldonado syrup 30ml) 450 mL 1 4 6:05 PM EDT 12/09/19 24 Active dicyclomine (BENTYL) 10 mg Oral CapsuleIndicatio ns:Abdominal cramps Take 1 Capsule by mouth 3 times daily. for abdominal cramps 30 Capsule 04/07/20 24 Active Meclizine (ANTIVERT) 50 mg Oral TabletIndication s:Nausea,Vertigo Take 50 mg by mouth 2 times daily. for vertigo x 3 days 6 Tablet 04/07/20 24 Active BOTOX 200 unit Inj Recon Soln 05/15/20 24 Active LORazepam (ATIVAN) 0.5 mg Oral TabletIndication s:Anxiety about treatment Take 1 Tablet by mouth 2 times daily as needed for Anxiety (or Insomnia). 30 Tablet 06/11/20 24 Active albuterol (PROVENTIL HFA;VENTOLIN HFA) 90 mcg/actuation Inhl HFA Aerosol InhalerIndicatio ns:Mild intermittent asthma, unspecified whether complicated Inhale 2 Puffs into the lungs every 6 hours as needed for Wheezing. 1 Each 07/03/20 24 Active fluticasone furoate-vilanter oL (BREO ELLIPTA) 200-25 mcg/dose Inhl Disk with DeviceIndication s:Mild intermittent asthma, unspecified whether complicated Inhale 1 Puff into the lungs daily. 1 Each 07/03/20 24 Active fluticasone propionate (FLONASE) 50 mcg/actuation Nasl [place], Suspension 1 [place] by Nasal route daily. 1 Each 07/03/20 24 Active UNABLE TO FIND Fentanyl 500 mcg/ml in pain pump. 60 mcg/day Active mometasone (ELOCON) 0.1 % Top CreamIndications :Invasive ductal carcinoma of breast, female, right (HCC) Apply topically daily. 45 g 1 08/12/19 25 Active omeprazole (PRILOSEC) 40 mg Oral Capsule, Delayed Release(E.C.)Ind ications:Invasiv e ductal carcinoma of right breast (HCC) Take 1 Capsule by mouth daily. 30 Capsule 2 10/08/19 25 Active anastrozole (ARIMIDEX) 1 mg Oral TabletIndication s: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) Take 1 Tablet by mouth daily. 90 Tablet 3 5 1:18 PM EDT 10/09/19 25 Active ondansetron (ZOFRAN-ODT) 8 mg Oral Tablet, Rapid DissolveIndicati ons:Chemotherapy -induced nausea Take 1 Tablet by mouth every 8 hours as needed for Nausea. 60 Tablet 1 10/30/19 25 Active promethazine-dex tromethorphan (PROMETHAZINE-DM ) 6.25-15 mg/5 mL Oral SyrupIndications :Acute bacterial sinusitis Take 5 mL by mouth 3 times daily as needed. No driving 100 mL 11/10/19 25 Active ARIPiprazole (ABILIFY) 5 mg Oral TabletIndication s:Severe episode of recurrent major depressive disorder, without psychotic features (HCC),KAYODE (generalized anxiety disorder) Take 1 Tablet by mouth daily. 30 Tablet 1 11/19/19 25 Active abemaciclib (VERZENIO) 50 mg Oral TabletIndication s: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) Take 1 Tablet by mouth 2 times daily. 56 Tablet 1 5 3:46 PM EDT 12/02/19 25 Active abemaciclib (VERZENIO) 100 mg Oral TabletIndication s: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),Chemothera py-induced nausea Take 1 Tablet by mouth 2 times daily. 56 Tablet 4 5 4:14 PM EDT 12/11/19 25 Active rOPINIRole (REQUIP) 0.25 mg Oral TabletIndication s:Restless leg syndrome Take 1 Tablet by mouth nightly as needed. for up to 30 days. 30 Tablet 5 12/30/19 25 Active losartan (COZAAR) 50 mg Oral TabletIndication s:Essential hypertension, benign Take 1 Tablet by mouth daily. only if BP elevated 90 Tablet 12/30/19 25 Active DULoxetine (CYMBALTA) 30 mg Oral Capsule, Delayed Release(E.C.)Ind ications:Reactiv e depression Take 1 Capsule by mouth daily. 30 Capsule 1 5 2:53 PM EDT 01/16/20 25 Active ketorolac (TORADOL) 10 mg Oral Tablet Take 10 mg by mouth once. 12/09/19 25 Active oxybutynin (DITROPAN-XL) 5 mg Oral Tablet Extended Rel 24 hrIndications:Ho t flashes related to aromatase inhibitor therapy Take 1 Tablet by mouth daily. 30 Tablet 5 2:53 PM EDT 01/16/20 25 Active ergocalciferol (VITAMIN D) 1,250 mcg (50,000 unit) Oral CapsuleIndicatio ns:Vitamin D deficiency Take 1 Capsule by mouth once a week. 12 Capsule 5 2:53 PM EDT 01/16/20 25 Active lidocaine-priloc arthur (EMLA) Top CreamIndications :Invasive ductal carcinoma of breast, female, right (HCC) APPLY DIME SIZE AMOUNT TO PORT AREA 30 MINUTES PRIOR TO PORT ACCESS. 30 g 1 01/19/20 25 Active atogepant 60 mg Oral Tablet Take 1 Tablet by mouth daily. 30 Tablet 5 5 4:14 PM EDT 02/03/20 25 Active rimegepant (NURTEC ODT) 75 mg Oral Tablet, Rapid Dissolve Dissolve 1 tablet in mouth at migraine onset (Max dose 75 mg/24 hours) 8 Tablet 5 5 4:14 PM EDT 02/03/20 25 Active exemestane (AROMASIN) 25 mg Oral TabletIndication s:Invasive ductal carcinoma of breast, female, right (HCC),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),Right breast cancer with T3 tumor, >5 cm in greatest dimension (HCC) Take 1 Tablet by mouth daily. 90 Tablet 02/09/20 25 Active potassium chloride (KLOR-CON M) 20 mEq Oral Tab Sust.Rel. Particle/Crystal Take 2 Tablets by mouth daily for 2 days. Take with meals 4 Tablet 02/06/20 25 025 Active Problems Patient Care Coordination No te Formatting of this note migh t be different from the original. [facility] Sin Tran MD Controlled Substance [...] or Functional capacity documented (EVERY VISIT)01/03/2022 Pharmacy: [address] [phone] [facility] [phone] [facility] POA: 02/10/2025 josh as expected #[id number] Josh 08-05-2018 adm [facility] 08-14-18 adm UDS 2 adm Care gap audit completed by Medina White RN on 01/01/2022. 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 Date Type Department Care Team Description 02/15/2025 Telephone [facility] [place] [phone] Tacho Echavarria MD 02/12/2025 Telephone [facility] [place] [address] Eze Rowland MD Follow-up (Updated form, loan deferment form ) 02/10/2025 10:30 AM EDT Office Visit [place] [address] [address] [place] [phone] Sin Tran MD Chronic pain syndrome (Primary Dx); Post laminectomy syndrome 02/10/2025 Patient Outreach [facility] [place] [phone] Tacho Echavarria MD Oncology Nurse Navigation 02/10/2025 Orders Only [facility] [place] [phone] Shilpa Cline RN 02/08/2025 Refill [facility] [place] [address] Tacho Echavarria MD Medication Refill 02/05/2025 Telephone [facility] [place] [phone] Tacho Echavarria MD Symptom Call (lightheaded / headache ) 02/05/2025 Telephone [place] [address] Narda Vickers, Clerical Staff Integrative Oncology Referral 02/05/2025 [facility]phone [facility] [address] [address] Chetna Cedeno MD Other (BW) 02/04/2025 2:03 PM EDT - 02/04/2025 11:59 PM EDT Hospital Encounter [facility] [place] [address] Tacho Echavarria MD Invasive ductal carcinoma of breast, female, right (HCC) (Primary Dx); Chemotherapy follow-up examination; Encounter for monitoring aromatase inhibitor therapy; Vitamin D deficiency; Port-A-Cath in place; Reactive depression Discharge Disposition: Home or Self Care 02/04/2025 1:48 PM EDT - 02/04/2025 2:02 PM EDT Hospital Encounter [place] [address] Tacho Echavarria MD Invasive ductal carcinoma of breast, female, right (HCC) (Primary Dx) Discharge Disposition: Home or Self Care 02/04/2025 11:00 AM EDT - 02/04/2025 1:47 PM EDT Hospital Encounter [facility] [address] [place] [address] Tacho Echavarria MD Mosko, Mallory, PA-C Invasive ductal carcinoma of breast, female, right (HCC) (Primary Dx); Encounter for monitoring aromatase inhibitor therapy; Encounter for screening mammogram for breast cancer Discharge Disposition: Home or Self Care 02/04/2025 Social Work [facility] Cancer [facility] [place] [address] Annette Walker MSW 02/04/[address] [place] [address] Aliya Harden, Clerical Staff Appointment Needed 02/03/[address] [address] Sin Tran MD Other (Pain pump meds) 02/03/2025 Specialty Pharmacy [facility] [address] [place] [address] Anisa Lozoya, [facility] Oncology Management (Abemaciclib) 02/02/2025 11:20 AM EDT Telemedicine [facility] [address] [place] [address] [address] [place] [address] Samm Ledesma APRN Chronic migraine without aura, intractable, with status migrainosus (Primary Dx); Paresthesia; Invasive ductal carcinoma of breast, female, right (HCC); Pituitary lesion; Radicular syndrome of left leg Discharge Disposition: Home or Self Care 02/02/2025 Specialty Pharmacy [facility] [address] [place] [address] Kevin Chacon, [facility] Migraine Medication Management (Nurtec) 02/01/2025 Social Work [facility] [place] [address] Sonny Fleming, [facility] 02/01/2025 Telephone [facility] [place] [address] Tacho Echavarria MD Other (Currently inpatient at [facility] ) 01/29/2025 Telephone [facility] [place] [address] Tacho Echavarria MD Symptom Call (Diarrhea, body aches, vomiting) 01/29/2025 Social Work [facility] [place] [address] Sonny Fleming, [facility] 01/29/2025 Patient Outreach [facility] [address] Shilpa Cline, privacy officer Nurse Navigation 01/28/2025 Orders Only [facility] [place] [address] Tacho Echavarria MD Invasive ductal carcinoma of breast, female, right (HCC) (Primary Dx) 01/28/2025 Telephone [facility] [place] [address] Tacho Echavarria MD Patient Question (question about test result ) 01/28/2025 Specialty Pharmacy [facility] [address] [place] [address] Sheridan Arellano, [facility] Migraine Medication Management (Qulipta) 01/27/2025 Results Follow-Up [facility] [address] [place] [address] Benito Snell, PharmD PHARMACOGENOMIC PANEL 01/21/2025 Orders Only [facility] [address] [place] [address] Osvaldo Johnson, Clerical Staff 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) (Primary Dx) 01/18/2025 Telephone [facility] [place] [address] Tacho Echavarria MD 01/15/2025 1:30 PM EDT - 01/15/2025 11:59 PM EDT Hospital Encounter [facility] [place] [phone] Tacho Echavarria MD Argent, Lillian L, APRN Hot flashes related to aromatase inhibitor therapy (Primary Dx); Vitamin D deficiency Discharge Disposition: Home or Self Care 01/15/2025 1:15 PM EDT - 01/15/2025 1:29 PM EDT Hospital Encounter [place] [address] Tacho Echavarria MD Invasive ductal carcinoma of breast, female, right (HCC) (Primary Dx); Cold sweat; Lightheaded; Shakiness Discharge Disposition: Home or Self Care 01/15/2025 11:55 AM EDT - 01/15/2025 1:14 PM EDT Hospital Encounter [facility] Physical Therapy [address] [place] [address] Kylah Lawler, PT Discharge Disposition: Home or Self Care 01/15/2025 Refill [facility] [address] [place] [address] Chetna Cedeno MD Medication Refill 01/15/2025 Refill [facility] [address] [place] [address] Samm Ledesma APRN Medication Refill 01/15/2025 Refill [facility] [place] [address] Tacho Echavarria MD Medication Refill 01/15/2025 Plan of Care Documentation [facility] Physical Therapy [address] [place] [address] 01/15/2025 Plan of Care Documentation [facility] Physical Therapy [address] [place] [address] 01/15/2025 Telephone [facility] [place] [address] Tacho Echavarria MD Symptom Call (shakiness, light headed, cold chills, and breaking out in sweats ) 01/15/2025 Specialty Pharmacy [facility] [address] [place] [address] Annamarie Mark [facility] Migraine Medication Management (Ubrelvy) 01/14/2025 Refill [facility] [place] [address] Tacho Echavarria MD Medication Refill 01/13/2025 2:56 PM EDT - 01/13/2025 11:59 PM EDT Hospital Encounter [facility] Physical Therapy [address] [place] [address] Shaunna Workman, ALECIA Discharge Disposition: Home or Self Care 01/13/2025 Plan of Care Documentation [facility] Physical Therapy [address] [place] [address] 01/11/2025 Orders Only [facility] [place] [address] Tacho Echavarria MD 01/07/2025 Specialty Pharmacy [facility] [address] [place] [id number] Anisa Lozoya CPhT Pharmacy Oncology Management (Abemaciclib) 01/06/2025 1:14 PM EDT - 01/06/2025 11:59 PM EDT Hospital Encounter [facility] [place] [address] Tacho Echavarria MD Invasive ductal carcinoma of [...] EDT Hospital Encounter [facility] [place] [phone] Tacho Echavarria MD Invasive ductal carcinoma of breast, female, right (HCC) (Primary Dx) Discharge Disposition: Home or Self Care 01/01/2025 Patient Outreach [facility] [address] [place] [phone] Samm Ledesma APRN Botox Injection (~03/02/2025 ) 12/31/2024 Specialty Pharmacy [facility] [address] [place] [address] Annamarie Mark, [facility] Migraine Medication Management (Qulipta) 12/30/20[address] [facility] [place] [address] Sonny Fleming, TOOL AND DIE MAKER/DESIGNER 12/29/20[address] [facility] [place] [address] Annette Walker, TOOL AND DIE MAKER/DESIGNER 12/29/2024 Orders Only [facility] [address] [place] [address] Blake Antoine, [facility] Restless leg syndrome; Essential hypertension, benign 12/29/2024 Refill [place] [address] [address] [place] [address] Munir Hilton MD Medication Refill 12/29/2024 [facility] [address] [address] Chetna Cedeno MD Medication Refill 12/29/2024 Telephone [facility] [place] [address] Tacho Echavarria MD 12/28/2024 Orders Only [facility] [place] [phone] Tacho Echavarria MD 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) (Primary Dx) 12/25/2024 Specialty Pharmacy [facility] [address] [place] [address] Hilary Rivas, [facility] Pharmacy Oncology Management; Pharmacy Reassessment (abemaciclib (Verzenio)) 12/25/2024 Telephone [facility] [place] [phone] Jasmin Porter RN 12/23/2024 Specialty Pharmacy [facility] [address] [place] [address] Anisa Lozoya, [facility] Migraine Medication Management (Qulipta pa renewal) 12/23/2024 Telephone [facility] [place] [address] Tacho Echavarria MD 12/23/2024 Telephone [facility] [address] [place] [address] Tacho Echavarria MD Follow-up 12/14/2024 11:09 AM EDT - 12/14/2024 11:59 PM EDT Hospital Encounter [facility] Physical Therapy [place] [phone] [facility] [address] [place] [address] Kylah Lawler PT Discharge Disposition: Home or Self Care 12/11/2024 Telephone [facility] Physical Therapy [place] [address] [place] [address] Romana Bowman PTA Cancelled Appointment (Car in shop will not get done till 5 ) 12/10/2024 2:46 PM EDT - 12/10/2024 11:59 PM EDT Hospital Encounter [facility] [place] [address] Tacho Echavarria MD 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) (Primary Dx); Chemotherapy-induced nausea; Anxiety about treatment; Acquired lymphedema; Encounter for monitoring aromatase inhibitor therapy Discharge Disposition: Home or Self Care 12/10/2024 2:30 PM EDT - 12/10/2024 2:45 PM EDT Hospital Encounter [place] [address] Tacho Echavarria MD Invasive ductal carcinoma of breast, female, right (HCC) (Primary Dx); 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) Discharge Disposition: Home or Self Care 12/10/2024 Specialty Pharmacy [facility] [address] [place] [address] Batool Smith, [facility] Pharmacy Oncology Management (Verzenio 100mg) 12/10/2024 Social Work [facility] Cancer Care [facility] [place] [phone] Annette Walker, ARACELI 12/09/2024 Specialty Pharmacy [facility] [address] [place] [address] Annamarie Mark, [facility] Migraine Medication Management (Qulipta) 12/08/2024 2:35 PM EDT Procedure visit [facility] [address] [place] [address] Samm Ledesma APRN Chronic migraine without aura, intractable, with status migrainosus (Primary Dx) Discharge Disposition: Home or Self Care 12/08/2024 7:59 AM EDT - 12/08/2024 11:59 PM EDT Hospital Encounter [facility] Physical Therapy [address] [place] [address] Shaunna Workman, PT Discharge Disposition: Home or Self Care 12/08/2024 Specialty Pharmacy [facility] [address] [place] [address] [facility] Migraine Medication Management (Ubrelvy) 12/07/2024 Results Follow-Up [facility] [address] [place] [address] King Oliva MD PATHOLOGY TISSUE REQUEST 12/04/2024 [facility] Work [facility] [place] [address] Aaron Annette, [facility] 12/04/2024 Travel 12/03/2024 9:00 AM EDT - 12/03/2024 11:59 PM EDT Hospital Encounter [facility] Physical Therapy [place] [address] [place] [address] Shaunna Workman, PT Discharge Disposition: Home or Self Care 12/03/2024 8:00 AM EDT - 12/03/2024 8:59 AM EDT Hospital Encounter [facility] Physical Therapy [place] [address] [place] [address] Romana Bowman, ROUTE SALES TRAINEE Discharge Disposition: Home or Self Care 12/03/2024 [facility] Work [facility] [place] [address] Sonny Fleming, [facility] 12/02/2024 9:36 AM EDT - 12/02/2024 11:59 PM EDT Hospital Encounter [facility] Physical Therapy [address] [place] [address] Shaunna Workman, PT Discharge Disposition: Home or Self Care 12/02/2024 Orders Only [facility] [place] [address] Tacho Echavarria MD 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) (Primary Dx) 12/01/2024 10:51 AM EDT Anesthesia Event [facility] [address] [place] [address] Aliya Friedman MD Record, Batool Velazquez, STANDPIPE TENDER 12/01/2024 9:22 AM EDT - 12/01/2024 11:59 PM EDT Hospital Encounter [facility] [address] [place] [address] King Oliva MD Judge, Lisa M, MD O N Shaylee curtis, LOUIE Nausea and vomiting, unspecified vomiting type; Gastroesophageal reflux disease without esophagitis Discharge Disposition: Home or Self Care 12/01/2024 Refill [facility] [place] [phone] Tacho Echavarria MD Medication Refill 12/01/2024 Specialty Pharmacy [facility] [address] [place] [phone] Annette Renee, [facility] Oncology Management (Abemaciclib) 11/30/2024 Nurse Triage [facility] [place] [address] Sandy Gonzalez RN 11/26/2024 8:00 AM EDT - 11/26/2024 11:59 PM EDT Hospital Encounter [facility] Physical Therapy [address] [place] [phone] Shaunna Workman, PT Discharge Disposition: Home or Self Care 11/25/2024 Social Work [facility] [place] [address] Nati Fleming, [facility] 11/23/2024 12:12 PM EDT - 11/23/2024 11:59 PM EDT Hospital Encounter [facility] Physical Therapy [address] [place] [phone] Shaunna Workman, PT Discharge Disposition: Home or Self Care 11/23/2024 12:00 PM EDT - 11/23/2024 12:11 PM EDT Hospital Encounter [facility] Physical Therapy [address] [place] [address] Kyalh Lawler, PT Discharge Disposition: Home or Self Care 11/23/2024 Telephone [facility] [place] [address] [facility] [address] [place] [address] Krissy Rhodes APRN Other 11/23/2024 Telephone [facility] [address] [place] [address] Samm Ledesma APRN Headache 11/22/2024 10:32 AM EDT - 11/22/2024 1:30 PM EDT Emergency [facility] [place] [phone] Stone Castellano MD Acute nonintractable headache, unspecified headache type (Primary Dx) Discharge Disposition: Home or Self Care 11/22/2024 Nurse Triage [facility] [address] [place] [phone] Macarena Aldrich, RAUL 11/21/2024 1:21 PM EDT - 11/21/2024 5:35 PM EDT Emergency [facility] [place] [phone] Saúl Melendez MD Migraine with status migrainosus, not intractable, unspecified migraine type (Primary Dx) Discharge Disposition: Home or Self Care 11/21/2024 Travel 11/21/2024 Nurse Triage [facility] Nurse Now [address] [place] [phone] Annette Moreira, RAUL 11/21/2024 Telephone [facility] [place] [phone] Tacho Echavarria MD Symptom Call 11/19/2024 2:21 PM EDT - 11/19/2024 11:59 PM EDT Hospital Encounter [facility] Physical Therapy [address] [place] [address] Kylah Lawler, PT Discharge Disposition: Home or Self Care 11/18/2024 7:58 AM EDT - 11/18/2024 11:59 PM EDT Hospital Encounter [facility] Physical Therapy [place] [address] [facility] [address] [place], [place] [phone] Shaunna Workman, PT Discharge Disposition: Home or Self Care 11/17/2024 8:55 AM EDT - 11/17/2024 11:59 PM EDT Hospital Encounter [facility] Physical Therapy [place] [address] [place] [address] [address] [place] [address] Kylah Lawler, PT Discharge Disposition: Home or Self Care from Last 3 Months Immunizations Immunization Administration Dates Next Due Influenza High Dose 06/25/2024, 4(Deferred: Other - patient is getting vaccine at [facility]) Influenza Vaccine Quadrivalent PF 03/27/2023,01/2015 Influenza Vaccine, [...] LAMINECTOMY & DISCECTOMY L4-5 LEFT ; Surgeon: Hetla Borden MD; UPPER GASTROINTESTINAL ENDOSCOPY UPPER GASTROINTESTINAL ENDOSCOPY 01/26/2015 N/A ESOPHAGOGASTRODUODENOSCOPY with biopsy and davis dilation; Surgeon: Stone Cronin MD; [facility]; Service: Endoscopy GASTRIC BYPASS SURGERY [...] [facility] MAIN OR; Service: Pain Management Medical devices from this surgery are in the Medical Devices section. SPINE SURGERY 01/04/2021 N/A PAIN PUMP PERMANENT IMPLANT; Surgeon: Munir Hilton MD; Location: [facility] MAIN OR; Service: Pain Management Medical devices from this surgery are in the Medical Devices section. IR FLUOROSCOPY GUIDED NEEDLE PLACEMENT 01/17/2021 IR FLUOROSCOPY GUIDED NEEDLE PLACEMENT 01/17/2021 [facility] IM[facility]ING IR GUIDED INJECT TRANSFORAM EPIDUR LUMB OR SACRAL SINGLE LVL 08/03/2022 IR GUIDED INJECT TRANSFORAMINAL EPIDUR LUMB OR SACRAL SINGLE LVL 08/03/2022 Sin Trna MD [facility] SPINE CTR IMAGING BREAST BIOPSY 10/25/2023 Right 5:00 and 6:00 IR PORT PLACEMENT EQUAL OR > 5 YEARS 11/29/2023 IR PORT PLACEMENT EQUAL OR > 5 YEARS 11/29/2023 Joselito Goodwin MD HECTOR IR MASTECTOMY 07/06/2024 Right Right modified radical mastectomy; Surgeon: Matt Ulrich MD; Location: [facility] MAIN OR; Service: General Medical History Medical [...] 07/07/2024 [facility] - Occupational Stress Questionnaire Answer [...] in the past 12 m [facility], were you homeless or living in a custodial (including now)? No 11/07/2023 [facility] IP Transportation Answer D [...] 03/02/2025 11:40 AM EDT Office Visit [facility] [place] [facility] [address] [place] [address] [place] [address] [place] [address] 03/02/2025 12:45 PM EDT Procedure visit [facility] [address] [place] [address] Samm Ledesma, STANDPIPE TENDER [address] [place] [address] 03/10/2025 12:30 PM EDT Appointment [place] [address] 03/10/2025 1:00 PM EDT Appointment [facility] [place] [address] Tacho Echavarria MD [address] [place] [address] 04/29/2025 9:15 AM EDT Appointment [facility] RAD ONC [place], [place] [id number] Batool Celis MD [address] [place] [address] [place] [address] 05/19/2025 2:15 PM EST Office Visit [facility] [place] [address] [place] [address] Sin Tran MD [address] [place] [address] 08/12/2025 10:40 AM EST Appointment [facility] Women's Wellness [facility] [place] [phone] Matt Ulrich MD [address] [place] [address] [address] [place] [address] Health Maintenance Due Date Last Done Comments Hepatitis B Vaccine (1 of 3 - 19+ 3-dose series) 1986 HPV/Pap Cotest 1997 Cologuard 2012 FIT 2012 Sigmoidoscopy 2012 Virtual Colonography 2012 Annual Wellness Exam 02/17/2015 02/17/2014 Cervical Cancer Screening 11/26/2017 Pap Smear 11/26/2017 11/26/2014 (Post poned), 11/25/2012 (Postponed) Zoster (2 of 2) 11/09/2019 09/14/2019 COVID-19 Vaccine ( - season) 2024 05/10/2021, 10/19/2020, 09/28/2020 DTaP/TDaP/Td (2 [...] Health On track(2024 11:27 AM EDT) Demi Leonardo RN Note: Patient will be compliant with taking Aromatase Inhibitor daily and understands who to contact to discuss any side effects or complications. Maintain a healthy diet, exercise regularly and maintain an ideal body weight General No Sanam Julio MA Medical Devices Implanted Type Area X Ray Equipment Servicer Device Identifier Shelf Expiration Date Model / Serial / Lot Kit Acc .133in Injex Didi Baso4 Biwing Flxb Rem Tl Preld - [id number] Implanted:Qty: 1 on 02/24/2020 by Munir Hilton MD at [facility] N/A: Back [employer]:NEURO 10/28/2023 [id number] / / [id number] Neurostimulator Rechar Adapt-Stim Sure Scan Intellis - [id number] Implanted:Qty: 1 on 02/24/2020 by Munir Hilton MD at [facility] NA: Back [employer]:NEURO 12/19/2020 [id number] / [id number] / Kit Lead Percutaneous Mri Surescan Vectris 1x8 60cm - [id number] Implanted:Qty: 1 on 02/24/2020 by Munir Hilton MD at [facility] N/A: Back [employer]:NEURO 09/09/2023 [id number] / / [id number] Kit Lead Percutaneous Mri Surescan Vectris 1x8 60cm - [id number] Implanted:Qty: 1 on 02/24/[facility] [employer]:NEURO 10/08/2023 [id number] / / [id number] Device Suturing Mechanical Fixate Tissue Band - [id number] Implanted:Qty: 1 on 02/24/2020 by Munir Hilton MD at [facility] N/A: Back [employer]:NEUROMODULA TION 02/03/2024 -- / / [id number] Device Suturing Mechanical Fixate Tissue Band - [id number] Implanted:Qty: 1 on 02/24/2020 by Munir Hilton MD at [facility] N/A: Back [employer]:NEUROMODULA TION 02/03/2024 FB-- / / [id number] Envelope Absorbable Tyrx Polyarylate Medium 2.7in X 2.5in - [id number] Implanted:Qty: 1 on 02/24/2020 by Munir Hilton MD at [facility] NA: Back [employer]:NEURO 12/03/2020 [id number] / / [id number] Device Sut Fixate Anchr Ld Tiss Bnd [id number] - [id number] Implanted:Qty: 1 on 01/04/2021 by Munir Hilton MD at [facility] N/A: Back [employer]:NEUROMODULA TION [id number] 10/25/2024 FB- / / [id number] Cath It 1-Pc 114cm 86cm Didi 4-Lyr Sut-Ls Custom Furrier Conn Lng Spin - [id number] Implanted:Qty: 1 on 01/04/2021 by Munir Hilton MD at [facility] N/A: Back [employer]:NEURO 12/10/2022 [id number] / / [id number] Pump It 2.5mm [id number] Flxb Synchromed Ii Rsvr Bk - [id number] Implanted:Qty: 1 on 01/04/2021 by Munir Hilton MD at [facility] NA: Back [employer]:NEURO 01/02/2022 [id number] / [id number] / Port Infs 8fr Sarah 1.6x2.6mm Xcela Pwr Inj Lpro Ti Pu-11/29/2023 Implanted:Qty: 1 on 11/29/2023 by Joselito Goodwin MD [facility] [id number] / / [id number] Procedures Procedure Name Priority Date/Time Associated Diagnosis Comments VITAMIN B12/ FOLIC ACID Routine 02/05/20 2:03 PM EDT Invasive ductal carcinoma of [...] of2 resultswithin the time period is included. [facility] Vitamin B12 271 232 - 1,245 pg/mL 02/04/2025 4:31 PM EDT [facility] Folate 6.16 >=4.80 ng/mL 02/04/2025 4:31 PM EDT [facility] Blood VENOUS BLOOD / Unknown Venipuncture / Unknown 02/04/2025 2:03 PM EDT 02/04/2025 2:03 PM EDT Narrative [facility] - 02/04/2025 4:31 PM EDT Ingestion of haroon doses of biotin (>5 mg/day) taken within 8 hours of drawing blood sample can interfere with this immunoassay test. [facility] Radha Echavarria MD CHEMISTRY ORDERABLES Final Result [facility] [address] [facility] , [place] [address] * (ABNORMAL) CBC WITH DIFF (02/04/2025 2:03 PM EDT) Only the most recent of5 resultswithin the time period is included. [facility] WBC 8.1 3.7 - 10.3 x10(3)/mc L 02/04/2025 2:07 PM EDT [facility] RBC 2.95(L) 3.90 - 5.20 x10(6)/mc L 02/04/2025 2:07 PM EDT [facility] Hgb 9.4(L) 11.2 - 15.7 g/dL 02/04/2025 2:07 PM EDT [facility] Hct 28.1(L) 34.0 - 45.0 % 02/04/2025 2:07 PM EDT [facility] MCV 95.3 80.0 - 100.0 fL 02/04/2025 2:07 PM EDT [facility] MCH 31.9 26.0 - 34.0 pg 02/04/2025 2:07 PM EDT [facility] MCHC 33.5 30.7 - 35.5 g/dL 02/04/2025 2:07 PM EDT [facility] RDW 15.0(H) <=14.9 % 02/04/2025 2:07 PM EDT [facility] Platelet 163 155 - 369 x10(3)/mc L 02/04/2025 2:07 PM EDT [facility] MPV 8.8 8.8 - 12.5 fL 02/04/2025 2:07 PM EDT [facility] Neut # Prelim 5.6 1.6 - 6.1 x10(3)/mc L 02/04/2025 2:07 PM EDT [facility] Comment:Preliminary automate d absolute neutrophil count. Value may change if manual differential is indicated. Neut Percent 68.4 % 02/04/2025 2:07 PM EDT [facility] Comment:Neutrophils equals s egs plus bands Imm Gran% 0.2 % 02/04/2025 2:07 PM EDT [facility] Comment:Automated count of m etamyelocytes, myelocytes and promyelocytes. Lymph Percent 23.4 % 02/04/2025 2:07 PM EDT [facility] Taos Percent 5.7 % 02/04/2025 2:07 PM EDT [facility] Eos Percent 2.1 % 02/04/2025 2:07 PM EDT [facility] Baso Percent 0.2 % 02/04/2025 2:07 PM EDT [facility] Neut # 5.6 1.6 - 6.1 x10(3)/mc L 02/04/2025 2:07 PM EDT [facility] Comment:Neutrophils equals s egs plus bands IMMGRAN# 0.0 0.0 - 0.1 x10(3)/mc L 02/04/2025 2:07 PM EDT [facility] Comment:Automated count of m etamyelocytes, myelocytes and promyelocytes. An absolute IG <0.1 is reported as 0.0. Lymph # 1.9 1.2 - 3.9 x10(3)/mc L 02/04/2025 2:07 PM EDT [facility] Taos # 0.5 0.3 - 0.9 x10(3)/mc L 02/04/2025 2:07 PM EDT [facility] Eos# 0.2 0.0 - 0.5 x10(3)/mc L 02/04/2025 2:07 PM EDT [facility] Baso # 0.0 0.0 - 0.1 x10(3)/mc L 02/04/2025 2:07 PM EDT [facility] Blood VENOUS BLOOD / Unknown Venipuncture / Unknown 02/04/2025 2:03 PM EDT 02/04/2025 2:03 PM EDT us Tacho Echavarria MD HEMATOLOGY ORDERABLES Final Result Performing Organization Address City/[facility]/ZIP Co de Phone Number [facility] [address] [place] [address] * IRON+TIBC (02/04/2025 2:02 PM [...] CHEMISTRY ORDERABLES Final Result Performing Organization Address City/[facility]/ZIP Co de Phone Number [facility] [address] [place] [address] [facility] [employer], [email or web address] [address] [facility], [place] [address] * (ABNORMAL) COMPREHENSIVE METABOLIC PANEL (02/04/2025 2:02 PM EDT) Only the most recent of4 resultswithin the time period is included. Sodium 142 136 - 145 mmol/L 02/04/2025 2:28 PM [facility] Potassium 3.3(L) 3.5 - 5.0 mmol/L 02/04/2025 2:28 PM [facility] Chloride 108(H) 98 - 107 mmol/L 02/04/2025 2:28 PM T [facility] Total CO2 19(L) 22 - 29 mmol/L 02/04/2025 2:28 PM [facility] Anion Gap 15 7 - 16 mmol/L 02/04/2025 2:28 PM [facility] Calcium 8.6 8.6 - 10.4 mg/dL 02/04/2025 2:28 PM [facility] Glucose Lvl 134(H) 70 - 99 mg/dL 02/04/2025 2:28 PM [facility] BUN 12 6 - 20 mg/dL 02/04/2025 2:28 PM [facility] Creatinine 0.78 0.51 - 1.30 mg/dL 02/04/2025 2:28 PM [facility] Albumin 3.8 3.5 - 5.2 gm/dL 02/04/2025 2:28 PM [facility] Total Protein 6.0(L) 6.4 - 8.3 gm/dL 02/04/2025 2:28 PM T [facility] Bili Total 0.3 0.2 - 1.3 mg/dL 02/04/2025 2:28 PM [facility] ALT 8 <=41 U/L 02/04/2025 2:28 PM [facility] AST 12 <=40 U/L 02/04/2025 2:28 PM [facility] Alk Phos 95 36 - 123 U/L 02/04/2025 2:28 PM [facility] eGFR (CKD-EPIcr 2020) 88 >=60 mL/min/1.7 3 m2 02/04/2025 2:28 PM [facility] Comment:Estimated GFR was ca lculated using the CKD-EPIcr (2020) equation refit without race. The equation is recommended by the National Kidney Foundation - [place] Society of Nephrology Task Force. Blood VENOUS BLOOD / Unknown Venipuncture / Unknown 02/04/2025 2:02 PM EDT 02/04/2025 2:02 PM EDT us Tacho Echavarria MD CHEMISTRY ORDERABLES Final Result Performing Organization Address City/[facility] Co de Phone Number [facility] [address] [place] [address] * MISCELLANEOUS LAB (01/06/2025 1:13 PM EDT) Only the most recent of2 resultswithin the time period is included. Pathologist [facility] MISC COMMENT Tiago 01/07/2025 7:35 AM EDT [facility] Blood VENOUS STRUCTURE / Unknown Port / Unknown 01/06/2025 1:13 PM EDT 01/07/2025 7:31 AM EDT us Tacho Echavarria MD HEMATOLOGY ORDERABLES Final Result Performing Organization Address [facility] [place] [address] * PHARMACOGENOMIC PANEL (01/06/2025) [facility] Pharmacogenomic Lab Comments See Comment [facility] Comment:Hemizygous males and homozygous females are reported as HTR2C CC. Pharmacogenomic Lab Method See Comment [facility] Comment: This test was developed, and its performance characteristics determined by [facility], a clinical laboratory located at [address] [place] [address]. These tests have not been cleared or approved by the U.S. Food and Drug Administration. The FDA does not require this test to go through premarket FDA review. [facility] is certified under CLIA-88 and accredited by the College of [place] [employer]ologists as qualified to perform high-complexity testing. This test is approved for clinical use by the [facility] Department of [facility]. This test should not be regarded as investigational or for research. *Genomic DNA was analyzed by PCR using [employer] TaqMan and/or SoNetJobQ probe-based methods to interrogate the variant locations [...] are associated with more than one haplotype, [facility] infers and reports the most likely diplotype [...] Call. *The variant detection methods validated by [facility] provide >99.9% accuracy for the adult population; [...] or pharmacogenomic specialist. For additional support, contact [facility] through the website or by calling [phone]. Blood 01/06/2025 01/22/2025 Narrative [facility] - [facility]27[facility]2025 This result has genomic variants that were not included in this document. us Aury Delgado MD [facility] - ORDERABLES Final Result [facility] [address] [facility] [address] [place] [id number], [facility] [phone] * ESOPHAGOGASTRODUODENOSCOPY (EGD) (12/01/2024 11:06 AM EDT) [...] King Oliva MD Performing Provider Shaylee curtis, TRIM TECHNICIAN TRIM TECHNICIAN Viv Martinez RN Project Superintendent Madelyn Sidhu RN Endoscopy Nurse Aliya Friedman [...] AM EDT) CASE REPORT Surgical Pathology Case: [id number] Authorizing Provider: King Oliva MD Collected: 12/01/2024 1059 Ordering Location: [facility] ENDOSCOPY Received: 12/01/2024 1237 Pathologist: Estefany Spencer MD Specimens: A) - Small Intestine, Duodenum, duodenal biopsies via forceps B) - Gastric, gastric biopsies via forceps C) - Gastroesophageal Junction, gastroesophageal junction biopsies via forceps 12/03/2024 10:48 AM EDT [facility] FINAL DIAGNOSIS A. Duodenal biopsies via forceps: Small bowel mucosa with no significant diagnostic abnormalities. Negative for celiac disease. B. Gastric, biopsies via forceps: Mild chronic inactive gastritis. Helicobacter microorganisms are not identified. C. Gastroesophageal junction, biopsies via forceps: Predominantly inflamed gastric cardia type mucosa with reactive changes. Scant esophageal squamous epithelium. Negative for intestinal metaplasia and dysplasia. 12/03/2024 10:48 AM EDT [facility] at 1048 EDT GROSS DESCRIPTION A. [...] PA (ASCP) 12/01/2024 12/03/2024 10:48 AM EDT [facility] MICROSCOPIC DESCRIPTION The microscopic examination may have been rendered in whole, or in part, by analyzing high-resolution digital images (whole slide images) on the [employer] Digital Pathology platform validated at [facility]. 12/03/2024 10:48 AM EDT [facility] EMBEDDED IMAGES 12/03/2024 10:48 AM EDT [facility] Tissue DUODENAL STRUCTURE / Unknown 12/01/2024 10:59 AM EDT 12/01/2024 12:37 PM EDT Tissue specimen (specimen) STOMACH STRUCTURE / Unknown 12/01/2024 11:01 AM EDT 12/01/2024 12:37 PM EDT Tissue specimen (specimen) CARDIOESOPHAGEAL JUNCTION STRUCTURE / Unknown 12/01/2024 11:02 AM EDT 12/01/2024 12:37 PM EDT King Oliva MD PATHOLOGY ORDERABLES Final Result [facility] [address] [place] [address] [address] * INTRAOP AIRWAY PLACEMENT (12/01/2024 10:56 AM EDT) Narrative [facility] - 12/01/2024 10:56 AM EDT Shalyee Thurman CRNA 12/01/2024 10:56 AM Intraop Airway Placement: Date/Time: 12/01/2024 10:56 AM Induction type: IV Airway type: Nasal cannula salter Placement verified: End tidal CO2 us Aliya Friedman MD MD ANESTHESIA Final Result [facility] 1 [place] [address] * BASIC METABOLIC PANEL (11/21/2024 3:02 PM EDT) Sodium 140 136 - 145 mmol/L 11/21/2024 3:22 PM EDT [facility] Potassium 3.8 3.5 - 5.0 mmol/L 11/21/2024 3:22 PM EDT [facility] Chloride 107 98 - 107 mmol/L 11/21/2024 3:22 PM EDT [facility] Total CO2 23 22 - 29 mmol/L 11/21/2024 3:22 PM EDT [facility] Anion Gap 10 7 - 16 mmol/L 11/21/2024 3:22 PM EDT [facility] Calcium 8.6 8.6 - 10.4 mg/dL 11/21/2024 3:22 PM EDT [facility] Glucose Lvl 98 70 - 99 mg/dL 11/21/2024 3:22 PM EDT [facility] BUN 14 6 - 20 mg/dL 11/21/2024 3:22 PM EDT [facility] Creatinine 0.57 0.51 - 1.30 mg/dL 11/21/2024 3:22 PM EDT [facility] eGFR (CKD-EPIcr 2020) 105 >=60 mL/min/1.7 3 m2 11/21/2024 3:22 PM EDT [facility] Comment:Estimated GFR was ca lculated using the CKD-EPIcr (2020) equation refit without race. The equation is recommended by the National Kidney Foundation - [place] Society of Nephrology Task Force. Blood VENOUS BLOOD / Unknown Venipuncture / Unknown 11/21/2024 3:02 PM EDT 11/21/2024 3:05 PM EDT us Saúl Melendez MD CHEMISTRY ORDERABLES Final Resu lt [place] [id number] * MM MAMMO DIGITAL STEPHANE DIAGN RIGHT (01/27/2024 11:20 AM EDT) Anatomical Region Laterality Modality Breast Right Mammography 01/27/2024 12:5 7 PM EDT Impressions 01/27/2024 12:57 PM EDT Incomplete-need additional imaging evaluation ([id number]-4) ~ RECOMMENDATION: Ultrasound of the right breast. [...] the next mammogram, in accordance with the [place] College of Radiology and the Society of [...] sinceprior. ~ IMPRESSION: Incomplete-need additional imaging evaluation ([id number]-6) ~ RECOMMENDATION: Ultrasound of the right breast. [...] the next mammogram, in accordance with the [place] College of Radiology and the Society of Breast Imaging recommendations. Jeanette Smith APRN [facility] MAMMO[facility]HY ORDERABLES Final Result * GM[facility] COLONOSCOPY (07/12/2015 2:30 PM EST) 07/12/2015 2:30 PM EST Impressions [facility] - 07/12/2015 3:30 PM EST Normal [...] MD GI PROCEDURE ORDERABLES Doris [email or web address] Result [facility] [address] [place] [address] from Last 3 Months or Most Recently Relevant to Health Maintenance Insurance [employer] [place] [id number] MDR MDR MDR Advance Directives For more information, please contact: [phone] * Full Code (Latest Code Status on File) Date Activated Date Inactivated Comments 05/01/2017 2:57 PM 05/03/2017 5:30 PM Care Teams Project Internship Relationship Specialty [place] [address] [place] [address] PCP - General 06/21/10 Arlyn Schmidt MD [facility] [place] [address] Consulting Physician Internal Medicine-Endocrinology, Diabetes & Metabolism 11/28/20 Tacho Echavarria MD [address] [place] [address] Internal Medicine-Medical Oncology 11/12/23 Matt Ulrich MD [address] [place] [address] Surgery-Surgical Oncology 12/04/23 Eze Brock Pastoral Care 12/13/23 Annette Walker MSW Leather Dresser 05/13/24 Batool Celis MD [address] [place] [address] [place] [address] Radiation Oncologist Radiology-Radiation Oncology 06/08/24
--- OUTSIDE RECORDS SUMMARY | 2025-02-17 12:41 | XMS_ITS | Encounter Summary ---
Author [place] [address] Care Team Providers Care Crackling Press Operator Name Role Phone Chetna Cedeno MD Primary Care Provider [phone] Arlyn Schmidt MD Unavailable [phone] Tacho Echavarria MD Unavailable [phone] Matt Ulrich MD Unavailable [phone] Eze Brock Unavailable Annette Walker CARTON REPAIRER Unavailable [phone] Batool Celis MD Unavailable [phone] Encounter Details Date Type Department Care Team (Late st Contact Info) Description 02/01/2025 Social Work [facility] Cancer Care [facility] [place] [address] Sonny Fleming, CARTON REPAIRER Social History Tobacco Use Types Packs/Day Years [...] th e electric, gas, oil, or water [employer] threatened to shut off services in your [...] often do you attend chur ch or holiness services? 1 to 4 times per year [...] Total Score 5 07/07/2024 [facility] [place] of Occupat ional Health - Occupational [...] in a snf (including now)? No 11/07/2023 [facility] IP Transportation Answer D [...] - 02/01/2025 3:04 PM EDT 02/01/25 1504 Quality Control Scientist Assessment Referred By Pt. Call Disease/[place] Python Architect Assignment Breast cancer Referral Location: [facility] [...] 11:40 AM EDT Office Visit ROMULO Mahmood [address] [place] [address] [place] [address] [place] [address] 03/02/2025 12:45 PM EDT Procedure visit [facility] [address] [place] [address] Samm Ledesma, PERSONAL BANKING ASSISTANT [address] [place] [address] 03/10/2025 12:30 PM EDT Appointment [facility] [place], [place] [id number] 03/10/2025 1:00 PM EDT Appointment [place] [address] Tacho Echavarria MD [address] [place] [phone] 04/29/2025 9:15 AM EDT Appointment [place] [address] Batool Celis MD [address] [place] [address] [place] [address] 05/19/2025 2:15 PM EST Office Visit [address] [address] Sin Tran MD [address] [place] [address] 08/12/2025 10:40 AM EST Appointment [facility] Women's Wellness [facility] [place] [address] Matt Ulrich MD [address] [place], [place] [id number] documented as of this encounter Goals Goal [...] documented as of this encounter Care Teams Crackling Press Operator Relationship Specialty Start [place] [address] [place] [address] PCP - General 06/21/10 Arlyn Schmidt MD [address] [place] [address] Consulting Physician Internal Medicine-Endocrinology, Diabetes & Metabolism 11/28/20 Tacho Echavarria MD 1 [place] [address] Internal Medicine-Medical Oncology 11/12/23 Matt Ulrich MD 1 [place], [place] [id number] Surgery-Surgical Oncology 12/04/23 Eze Brock Pastoral Care 12/13/23 Annette Walker MSW Python Architect 05/13/24 Batool Celis MD [address] [facility] CANCER [place], [place] [id number] Radiation Oncologist Radiology-Radiation Oncology 06/08/24 documented as of this encounter
--- OUTSIDE RECORDS SUMMARY | 2025-02-17 12:41 | XMS_ITS | Encounter Summary ---
Author Organization [place] [address] Care Team Providers Care Engineering Tech Name Role Phone Chetna Cedeno MD Primary Care Provider [phone] Arlyn Schmidt MD Unavailable [phone] Tacho Echavarria MD Unavailable [phone] Matt Ulrich MD Unavailable [phone] Eze Brock Unavailable Annette Walker Unavailable [phone] Batool Celis MD Unavailable [phone] Reason for Visit * Reason Onset Date Comments Follow-up 02/12/2025 Updated form, lo an deferment form Encounter Details Date Type Department Care Team (Late st Contact Info) Description 02/12/2025 [facility]phone [facility] On[facility] [place], [place] [id number] Eze Rowland MD [address] [place] [address] [id number] Follow-up (Updated form, loan deferment form ) [...] Date Recorded PHQ-2 Total Score 5 07/07/2024 [facility] [place] of Occupat ional Health - Occupational Stress [...] a skilled nursing (including now)? No 11/07/2023 [facility] [...] to fill out for loan deferment via YouScan message. documented in this encounter Plan of Treatment Upcoming Encounters Date Type Department Care Team (Late st Contact Info) Description 03/02/2025 11:40 AM EDT Office Visit [facility] [address] [place] [address] [place] [address] [place] [address] 03/02/2025 12:45 PM EDT Procedure visit [facility] [address] [place] [address] Samm Ledesma, EMAIL CAMPAIGN SPECIALIST [address] [facility] [address] [place] [address] 03/10/2025 12:30 PM EDT Appointment [facility] [place], [place] [id number] 03/10/2025 1:00 PM EDT Appointment [facility] [place] [address] Tacho Echavarria MD 1 [place], [place] [id number] 04/29/2025 9:15 AM EDT Appointment [facility] [place] [address] Batool Celis MD [address] [facility] [facility] [place] [address] 05/19/2025 2:15 PM EST Office Visit [facility] [address] [place] [address] 1[address] [place] [address] Sin Tran MD [address] [place] [address] 08/12/2025 10:40 AM EST Appointment [facility] Women's Wellness [place] [address] Matt Ulrich MD [address] [place] [address] documented as of this encounter Goals Goal [...] as of this encounter Care Teams Engineering Tech Relationship Specialty [place] [address] [place] [address] PCP - General 06/21/10 Arlyn Schmidt MD [address] [place] [address] Consulting Physician Internal Medicine-Endocrinology, Diabetes & Metabolism 11/28/20 Tacho Echavarria MD 1 [place], [place] 0674017 Internal Medicine-Medical Oncology 11/12/23 Matt Ulrich MD 1 [place] [address] Surgery-Surgical Oncology 12/04/23 Eze Brock Pastoral Care 12/13/23 Annette Walker MSW Utility Lineman 05/13/24 Batool Celis MD 1 [facility] CANCER CARE [place], [place] [id number] Radiation Oncologist Radiology-Radiation Oncology 06/08/24 documented as of this encounter
--- OUTSIDE RECORDS SUMMARY | 2025-02-17 12:41 | XMS_ITS | Encounter Summary ---
Author Organization [place] [address] Care Team Providers Care Certified Financial Planner Name Role Phone Chetna Cedeno MD Primary Care Provider Arlyn Schmidt MD Unavailable [phone] Tacho Echavarria MD Unavailable Matt Ulrich MD Unavailable [phone] Eze Brock Unavailable Cheryl Nair RN Unavailable [phone] Sanam Murray CANCER GENETICS ASSISTANT Unavailable Unavailable Annette Walker CANCER GENETICS ASSISTANT Unavailable [phone] Batool Celis MD Unavailable [phone] Encounter Details Date Type Department Care Team (Late st Contact Info) Description 07/06/2024 Orders Only [facility] One [facility] [address] [place] [place] [address] Shilpa Tan MD [address] [place] [phone] Social History Tobacco Use Types Packs/Day Years [...] Never 11/07/2023 [facility] Utilities Answer Date Recorded In the past [...] any time in the past 12 [facility], were you homeless or living in a penitentiary (including now)? No 11/07/2023 [facility] IP Transportation Answer D [...] 07/06/2024 4:32 PM Kayla Lee RN * [place] Suicide Severity Rating Scale (Q shift for [...] 11:40 AM EDT Office Visit [facility] [address] [place] [address] [place] [address] [address] [place] [address] 03/02/2025 12:45 PM EDT Procedure visit [facility] [address] [place], [place] [id number] Samm Ledesma, PVC LOADER [address] [address] [place], [place] [address] 03/10/2025 12:30 PM EDT Appointment [place] [address] 03/10/2025 1:00 PM EDT Appointment [place] [address] Tacho Echavarria MD [address] [place] [address] [id number] 04/29/2025 9:15 AM EDT Appointment [facility] [address] Batool Celis MD [address] [place] [address] [place] [address] 05/19/2025 2:15 PM EST Office Visit [address] [address] Sin Tran MD [address] [place] [address] 08/12/2025 10:40 AM EST Appointment [facility] Women's Wellness [facility] [place] [id number] Matt Ulrich MD [address] [place] [address] documented as of this encounter Goals Goal Patient Goal Type Associated Problems Recent Progress Patient-Stated? Author Blood Pressure < 140/90 Blood Pressure 121/77(02/04 2:04 PM EDT) No Chetna Cedeno MD Breast [facility] Breast Health On track(2024 11:27 AM EDT) No Jasmin Porter, RN Note: Patient acknowledges understanding of new diagnosis, plan of care, available resources and how to contact Nurse Navigator with any future questions or concerns. Breast [facility] Breast Health Not on track(2024 [...] EST) 07/06/2024 12:5 1 PM EST Narrative [facility] - 09/24/2024 2:31 PM EDT Requesting Provider: MATT Womack Specimen = [id number] us Shilpa Tan MD PATHOLOGY ORDERABLES Final R esult [facility] 1 [place] [address] documented in this encounter Visit Diagnoses Not on filedocumented in this encounter Additional Health Concerns Infection Onset Date Last Indicated Resolved Time COVID-19 09/04/2024 09/04/2024 09/24/2024 10:1 2 PM EDT Assessment Noted Time PHQ-9 Depression Total Score: 12 03/16/ 024 12:00 PM EDT documented as of this encounter Care Teams Certified Financial Planner Relationship Specialty [place] [address] [place] [address] PCP - General 06/21/10 Arlyn Schmidt MD [address] [place], [place] 16[address] Consulting Physician Internal Medicine-Endocrinology , Diabetes & Metabolism 11/28/20 Tacho Echavarria MD 1 [place] [address] Internal Medicine-Medical Oncology 11/12/23 Matt Ulrich MD 1 [place], [place] 1488017 Surgery-Surgical Oncology 12/04/23 Eze Brock Pastoral Care 12/13/23 Cheryl Nair, RN Oncology Nurse Navigator 03/25/2412/13 Sanam Murray MSW Summer Sessions Director 04/10/24 07/30/24 Annette Walker MSW Summer Sessions Director 05/13/24 Batool Celis MD 1 [facility] [place] [address] Radiation Oncologist Radiology-Radiation Oncology 06/08/24 documented as of this encounter
--- OUTSIDE RECORDS SUMMARY | 2025-02-17 12:41 | XMS_ITS | Encounter Summary ---
Author Organization [place] [address] Care Team Providers Care Orthopedic Surgeon Name Role Phone Kit Cedeno MD Primary Care Provider [phone] Arlyn Schmidt MD Unavailable [phone] Cheryl Nair RN Unavailable [phone] Tacho Echavarria MD Unavailable [phone] Matt Ulrich MD Unavailable [phone] Hilary Clemens RN Unavailable Unavaila Eze Caro Unavailable Shila Albrecht RN Unavailable Unavail able Cheyanne To RN Unavailable Unavailabl Rayna Wong RN Unavailable Unavailab Shilpa Olivarez RN Unavailable [phone] Tulio Duong RN Unavailable Unavailable Yaquelin Weaver RN Unavailable Unavailable Pam Wang RN Unavailable Unavailable Jazmín Nair RN Unavailable Unavailable Fidel Rainey RN Unavailable Unavailable Cheryl Nair RN Unavailable [phone] Ophelia Lala RN Unavailable Glo Lee RN Unavailable Unavailab Sanam Evans GEOSPATIAL EXTRACTOR ANALYSIS Unavailable Unavailable Hilary Clemens RN Unavailable Unavaila Ruthy Clayton RN Unavailable Unavailable Rayna Partida RN Unavailable Unavailab Artur Nelson RN Unavailable Unavailable Annette Walker GEOSPATIAL EXTRACTOR ANALYSIS Unavailable [phone] Emmie Crain RN Unavailable Unavailable Brigida Enriquez RN Unavailable Unavailable Fidel Rainey RN Unavailable Unavailable Batool Celis MD Unavailable [phone] Encounter Details Date Type Department Care Team (Late st Contact Info) Description 10/25/2023 Orders Only [facility] One [facility] [place] [address] Diane [place] MD 1 [place] [address] Social History Tobacco Use Types [...] 11:40 AM EDT Office Visit [facility] [address] [place] [address] [place] [address] [place] [address] 03/02/2025 12:45 PM EDT Procedure visit [facility] [address] [facility] [address] [place] [address] Samm Ledesma, HUMAN RESOURCES REPRESENTATIVE [address] [facility] [address] [place] [address] 03/10/2025 12:30 PM EDT Appointment [facility] [place], [place] [id number] 03/10/2025 1:00 PM EDT Appointment [facility] On[facility] [place], [place] 3310517 Tacho Echavarria MD [address] [place] [address] [id number] 04/29/2025 9:15 AM EDT Appointment [facility] RAD ONC One [place], [place] 7880517 Batool Celis MD 1 [facility] [place] [address] 05/19/2025 2:15 PM EST Office Visit [facility] [address] [place] [address] 401 [facility] 1D [place] [address] Sin Tran MD [address] [place] [address] 08/12/2025 10:40 AM EST Appointment [facility] Women's Wellness [place] [address] Matt Ulrich MD 20 [facility] 254 [place], [place] 414[address]17 documented as of this encounter Goals Goal [...] EDT) 10/25/2023 10:4 4 AM EDT Narrative [facility] - 11/11/2023 7:42 AM EDT Requesting Provider: KIT Womack Specimen = [id number] us Diane Ellis MD PATHOLOGY ORDERABLES Final Resul t [facility] 1 [place], [place] 1645817 documented in this encounter Visit Diagnoses Not on filedocumented in this encounter Additional Health Concerns Infection Onset Date Last Indicated Resolved Time COVID-19 09/04/2024 09/04/2024 09/24/2024 10:1 2 PM EDT documented as of this encounter Care Teams Orthopedic Surgeon Relationship Specialty [place] [address] [place] [address] PCP - General 06/21/10 Arlyn Schmidt MD [address] [place] [address] Consulting Physician Internal Medicine-Endocrinolog y, Diabetes & Metabolism 11/28/20 Cheryl Nair RN Oncology Nurse Navigator 10/29/2302/05 Tacho Echavarria MD 1 [place], [place] 2394117 Internal Medicine-Medical Oncology 11/12/23 Matt Ulrich MD 1 [place], [place] 5721117 Surgery-Surgical Oncology 12/04/23 Hilary Clemens, RN Registered [...] Therapy 04/03/24 04/03/24 Sanam Murray, [facility] [employer] A[employer]iliaries Supervisor 04/10/24 07/30/24 Hilary Clemens, RN Registered Nurse Infusion Therapy 04/21/24 04/21/24 Ruthy Walker RN Registered Nurse Infusion Therapy 04/24/24 04/24/24 Rayna Partida, RN Registered Nurse Infusion Clinic 05/01/24 05/01/24 Artur Roberts RN Registered Nurse Infusion Therapy 05/07/24 05/07/24 Annette Walker, GEOSPATIAL EXTRACTOR ANALYSIS Pit And Auxiliaries Supervisor 05/13/24 Emmie Crain, RN Registered Nurse Infusion Therapy 05/14/24 05/14/24 Brigida Enriquez, RN Registered Nurse Infusion Clinic 05/21/24 05/21/24 Fidel Rainey, RN Registered Nurse Infusion Therapy 05/28/24 05/28/24 Batool Celis MD [address] [place] [address] [place] [address] Radiation Oncologist Radiology-Radiation Oncology 06/08/24 documented as of this encounter
--- OUTSIDE RECORDS SUMMARY | 2025-02-17 12:41 | XMS_ITS | Encounter Summary ---
Author Organization [place] [address] Care Team Providers Care Processing Assistant Name Role Phone Chetna Cedeno MD Primary Care Provider Arlyn Schmidt MD Unavailable [phone] Tacho Echavarria MD Unavailable Matt Ulrich MD Unavailable Eze Brock Unavailable Cheryl Nair RN Unavailable [phone] Annette Walker MANAGER VIDEO Unavailable [phone] Batool Celis MD Unavailable [phone] Encounter Details Date Type Department Care Team (Late st Contact Info) Description 12/07/2024 Results Follow-Up [facility] ENDOSCOPY [address] [facility] [place] [address] King Oliva MD 340 [place] [address] PATHOLOGY TISSUE REQUEST Social History Tobacco Use [...] Date Recorded PHQ-2 Total Score 5 07/07/2024 [facility] of Occupat ional Health - Occupational [...] a skilled nursing (including now)? No 11/07/2023 [facility] IP Transportation Answer [...] 11:40 AM EDT Office Visit [facility] [address] [place] [address] [place] [address] [place] [address] 03/02/2025 12:45 PM EDT Procedure visit [facility] NE[facility] [address] [facility] [address] [place] [address] Samm Ledesma, USER EXPERIENCE LEAD [address] [facility] [address] [place] [address] 03/10/2025 12:30 PM EDT Appointment [place] [address] 03/10/2025 1:00 PM EDT Appointment [facility] Medical Oncology [place], [place] [phone] Tacho Echavarria MD [address] [place] [address] [id number] 04/29/2025 9:15 AM EDT Appointment [place] [place] [address] Batool Celis MD [address] [place] [address] [place] [address] 05/19/2025 2:15 PM EST Office Visit [facility] Sarah [address] [facility] [address] [place] [address] Sin Tran MD [facility] [place] [address] 08/12/2025 10:40 AM EST Appointment [facility] Women's Wellness [place] One [facility] [place] [address] Matt Ulrich MD [address] [place] [address] [address] [place] [address] documented as of this encounter [...] documented as of this encounter Care Teams Processing Assistant Relationship Specialty [place] [address] [place] [address] PCP - General 06/21/10 Arlyn Schmidt MD [address] [place] [address] Consulting Physician Internal Medicine-Endocrinology , Diabetes & Metabolism 11/28/20 Tacho Echavarria MD 1 [place] [address] Internal Medicine-Medical Oncology 11/12/23 Matt Ulrich MD 1 [place] [address] Surgery-Surgical Oncology 12/04/23 Eze Brock Pastoral Care 12/13/23 Cheryl Nair, RN Oncology Nurse Navigator 03/25/2412/13 Annette Walker MSW Warehouse Helper 05/13/24 Batool Celis MD 1 [facility] [place] [address] Radiation Oncologist Radiology-Radiation Oncology 06/08/24 documented as of this encounter
--- OUTSIDE RECORDS SUMMARY | 2025-02-17 12:41 | XMS_ITS | Encounter Summary ---
Author Organization [place] [address] Care Team Providers Care Physician Office Specialist Name Role Phone Kit Cedeno MD Primary Care Provider [phone] Arlyn Schmidt MD Unavailable [phone] Cheryl Nair RN Unavailable [phone] Tacho Echavarria MD Unavailable [phone] Matt Ulrich MD Unavailable [phone] Hilary Clemens RN Unavailable Unavaila Eze Caro Unavailable Shila Albrecht RN Unavailable Unavail able Cheyanne To RN Unavailable Unavailabl Rayna Wong RN Unavailable Unavailab Shilpa Olivarez RN Unavailable [phone] Tulio Duong RN Unavailable Unavailable Yaquelin Weaver RN Unavailable Unavailable Pam Wang RN Unavailable Unavailable Jazmín Nair RN Unavailable Unavailable Fidel Rainey RN Unavailable Unavailable Cheryl Nair RN Unavailable [phone] Ophelia Lala RN Unavailable Glo Lee RN Unavailable Unavailab Sanam Evans TOBACCO SHAKER Unavailable Unavailable Hilary Clemens RN Unavailable Unavaila Ruthy Clayton RN Unavailable Unavailable Rayna Partida RN Unavailable Unavailab Artur Nelson RN Unavailable Unavailable Annette Walker TOBACCO SHAKER Unavailable [phone] Emmie Crain RN Unavailable Unavailable Brigida Enriquez RN Unavailable Unavailable Fidel Rainey RN Unavailable Unavailable Batool Celis MD Unavailable [phone] Encounter Details Date Type Department Care Team (Late st Contact Info) Description 10/25/2023 Orders Only [facility] LABOR[facility] One [facility] [place] [address] Diane Ellis MD 1 [place] [address] Social History Tobacco Use Types [...] 11:40 AM EDT Office Visit [facility] [address] [place] [address] [place] [address] [place] [address] 03/02/2025 12:45 PM EDT Procedure visit [facility] NEUR[facility]ECT[facility] [address] [facility] [address] [place] [address] Samm Ledesma, FRONT DESK ASSISTANT [address] [address] [place] [address] 03/10/2025 12:30 PM EDT Appointment [facility] [place], [place] [phone] 03/10/2025 1:00 PM EDT Appointment [facility] Medical Oncology [place], [place] 8707517 Tacho Echavarria MD [address] [place] [address] [id number] 04/29/2025 9:15 AM EDT Appointment [facility] RAD ONC One [place], [place] 337[address] Batool Celis MD 1 [facility] [place] [address] 05/19/2025 2:15 PM EST Office Visit [facility] [address] [place] [address] 401 [address] [place] [address] Sin Tran MD [address] [place] [address] 08/12/2025 10:40 AM EST Appointment [facility] Women's Wellness [place] One [facility] [place] [address] Matt Ulrich MD 20 [facility] 254 [place], [place] 467[address]17 documented as of this encounter Goals Goal [...] Narrative [facility] - 11/06/2023 7:12 PM EDT Requesting Provider: KIT Womack Specimen = [id number] us Diane Ellis MD PATHOLOGY ORDERABLES Final Resul t [facility] 1 [place], [place] 4270717 documented in this encounter Visit Diagnoses Not on filedocumented in this encounter Additional Health Concerns Infection Onset Date Last Indicated Resolved Time COVID-19 09/04/2024 09/04/2024 09/24/2024 10:1 2 PM EDT documented as of this encounter Care Teams Physician Office Specialist Relationship Specialty [place] [address] [place] [address] PCP - General 06/21/10 Arlyn Schmidt MD [address] [place] [address] Consulting Physician Internal Medicine-Endocrinolog y, Diabetes & Metabolism 11/28/20 Cheryl Nair, RN Oncology Nurse Navigator 10/29/2302/05 Tacho Echavarria MD 1 [place], [place] 4086617 Internal Medicine-Medical Oncology 11/12/23 Matt Ulrich MD 1 [place] [address] Surgery-Surgical Oncology 12/04/23 Hilary Clemens, RN Registered [...] Nurse Infusion Therapy 04/03/24 04/03/24 Sanam Murray, [facility] Newborn Photographer 04/10/24 07/30/24 Hilary Clemens, RN Registered Nurse Infusion Therapy 04/21/24 04/21/24 Ruthy Walker RN Registered Nurse Infusion Therapy 04/24/24 04/24/24 Rayna Partida, RN Registered Nurse Infusion Clinic 05/01/24 05/01/24 Artur Roberts RN Registered Nurse Infusion Therapy 05/07/24 05/07/24 Annette Walker, TOBACCO SHAKER Newborn Photographer 05/13/24 Emmie Crain, RN Registered Nurse Infusion Therapy 05/14/24 05/14/24 Brigida Enriquez, RN Registered Nurse Infusion Clinic 05/21/24 05/21/24 Fidel Rainey, RN Registered Nurse Infusion Therapy 05/28/24 05/28/24 Batool Celis MD [address] [place] [address] [place] [address] Radiation Oncologist Radiology-Radiation Oncology 06/08/24 documented as of this encounter
--- OUTSIDE RECORDS SUMMARY | 2025-02-17 12:41 | XMS_ITS | Encounter Summary ---
Author Organization [place] [address] Care Team Providers Care Patient Relations Director Name Role Phone Chetna Cedeno MD Primary Care Provider [phone] Arlyn Schmidt MD Unavailable [phone] Tacho Echavarria MD Unavailable [phone] Matt Ulrich MD Unavailable [phone] Eze Brock Unavailable Cheryl Nair RN Unavailable [phone] Annette Walker PLASTICS HEAT WELDER Unavailable [phone] Batool Celis MD Unavailable [phone] Encounter Details Date Type Department Care Team (Late st Contact Info) Description 10/26/2024 Orders Only [facility] Physical Therapy [place] [address] [facility] [address] [place] [address] Shaunna Workman PT Social History [...] PHQ-2 Total Score 5 07/07/2024 [facility] of Occupat ional Health - Occupational Stress [...] in a fdc (including now)? No 11/07/2023 [facility] IP Transportation Answer D [...] AM EDT Office Visit [facility] [address] [place] [address] [place] [address] [place] [address] 03/02/2025 12:45 PM EDT Procedure visit [facility] [address] [facility] [address] [place] [address] Samm Ledesma, PIPE FITTER [employer] [address] [facility] [address] [place] [address] 03/10/2025 12:30 PM EDT Appointment [place] [address] 03/10/2025 1:00 PM EDT Appointment [facility] [place] [address] Tacho Echavarria MD [address] [place] [address] 04/29/2025 9:15 AM EDT Appointment [place] [address] Batool Celis MD [address] [place] [address] CANCER CARE [place], [place] 00[address]17 05/19/2025 2:15 PM EST Office Visit [place] [address] [place] [address] Sin Tran MD [address] [place] [address] 08/12/2025 10:40 AM EST Appointment [facility] Women's Wellness [place] One [facility] [place] [address] Matt Ulrich MD [address] [place] [address] [facility] [place] [address] documented as of this encounter [...] documented as of this encounter Care Teams Patient Relations Director Relationship Specialty [place] [address] [place] [address] PCP - General 06/21/10 Arlyn Schmidt MD [address] [place], [place] 7[address] Consulting Physician Internal Medicine-Endocrinology , Diabetes & Metabolism 11/28/20 Tacho Echavarria MD 1 [place], [place] 3485217 Internal Medicine-Medical Oncology 11/12/23 Matt Ulrich MD 1 [place] [id number] Surgery-Surgical Oncology 12/04/23 Eze Brock Pastoral Care 12/13/23 Cheryl Nair, RN Oncology Nurse Navigator 03/25/2412/13 Annette Walker, ARACELI Director Account Management 05/13/24 Batool Celis MD 1 [place], [place] [address] Radiation Oncologist Radiology-Radiation Oncology 06/08/24 documented as of this encounter
--- OUTSIDE RECORDS SUMMARY | 2025-02-17 12:41 | XMS_ITS | Encounter Summary ---
Author Organization [place] [address] Care Team Providers Care Dye House Hand Name Role Phone Chetna Cedeno MD Primary Care Provider [phone] Arlyn Schmidt MD Unavailable [phone] Tacho Echavarria MD Unavailable [phone] Matt Ulrich MD Unavailable [phone] Eze Brock Unavailable Annette Walker Unavailable [phone] Batool Celis MD Unavailable [phone] Reason for Visit * Reason Comments Pharmacy Oncology Management Abemaciclib Encounter Details Date Type Department Care Team (Latest Contact Info) Description 02/03/2025 Specialty Pharmacy [facility] [address] [place] [address] Anisa Lozoya CPhT Pharmacy Oncology [...] from your doctor or pharmacy? Never 11/07/2023 [facility] Utilities Answer Date Recorded In the past 12 months has th e electric, gas, oil, or water [employer] threatened to shut off services in your [...] Date Recorded PHQ-2 Total Score 5 07/07/2024 [facility] [place] of Occupat ional Health - Occupational Stress [...] now)? No 11/07/2023 [facility] IP Transportation Answer D ate Recorded In [...] she is being discharged tomorrow and will flower buncher or picker all her meds. She is unsure of supply left. * Blake Antoine RPH - 02/03/2025 11:05 AM EDT [facility] - Care Plan and Refill Review Refill questions and refill history verified. Last assessment 12/25/24. No reassessment needed at this time. Blake Antoine PharmD Specialty Pharmacist documented in this encounter Plan of Treatment Upcoming Encounters Date Type Department Care Team (Late st Contact Info) Description 03/02/2025 11:40 AM EDT Office Visit [facility] [address] [place] [address] [place] [address] [place] [address] 03/02/2025 12:45 PM EDT Procedure visit [facility] [address] [place] [address] Samm Ledesma, UTILITY SYSTEMS REPAIRER OPERATOR [address] [facility] [address] [place] [address] 03/10/2025 12:30 PM EDT Appointment [facility] [place], [place] [id number] 03/10/2025 1:00 PM EDT Appointment [facility] [place] [address] Tacho Echavarria MD [address] [place] [address] [id number] 04/29/2025 9:15 AM EDT Appointment [facility] [address] Batool Celis MD [address] [place] [address] [place] [address] 05/19/2025 2:15 PM EST Office Visit [address] [address] Sin Tran MD [address] [place] [address] 08/12/2025 10:40 AM EST Appointment [facility] Women's Wellness [facility] [place] [address] Matt Ulrich MD [address] [place] [address] [address] [place] [address] documented as of this encounter Goals Goal [...] documented as of this encounter Care Teams Dye House Hand Relationship Specialty [place] [address] [place] [address] PCP - General 06/21/10 Arlyn Schmidt MD [address] [place] [address] Consulting Physician Internal Medicine-Endocrinology, Diabetes & Metabolism 11/28/20 Tacho Echavarria MD 1 [place] [address] Internal Medicine-Medical Oncology 11/12/23 Matt Ulrich MD 1 [place] [address] Surgery-Surgical Oncology 12/04/23 Eze Brock Pastoral Care 12/13/23 Aaron Annette, DYE HOUSE HAND Telegraph Inspector 05/13/24 Batool Celis MD 1 [facility] [place] [address] Radiation Oncologist Radiology-Radiation Oncology 06/08/24 documented as of this encounter
--- OUTSIDE RECORDS SUMMARY | 2025-02-17 12:41 | XMS_ITS | Encounter Summary ---
Author Organization [place] [address] Care Team Providers Care Marriage Counselor Name Role Phone Chetna Cedeno MD Primary Care Provider [phone] Arlyn Schmidt MD Unavailable [phone] Tacho Echavarria MD Unavailable [phone] Matt Ulrich MD Unavailable [phone] Eze Brock Unavailable Cheryl Nair RN Unavailable [phone] Annette Walker GLASS INSTALLER TECHNICIAN Unavailable [phone] Batool Celis MD Unavailable [phone] Encounter Details Date Type Department Care Team (Late st Contact Info) Description 10/27/2024 Orders Only [facility] Physical Therapy Deputy [address] [facility] [address] [place] [address] Shaunna Workman PT Social History [...] from your doctor or pharmacy? Never 11/07/2023 [facility] Utilities Answer Date Recorded In the [...] often do you attend chur ch or buddhist services? 1 to 4 times per year [...] Date Recorded PHQ-2 Total Score 5 07/07/2024 [facility] [place] of Occupat ional Health - Occupational Stress [...] time in the past [address] [facility], were you homeless or living in a care home (including now)? No 11/07/2023 [facility] IP Transportation Answer D [...] 11:40 AM EDT Office Visit [facility] [place] [address] [place] [address] [place] [address] [place] [address] 03/02/2025 12:45 PM EDT Procedure visit [facility] [address] [place] [address] Samm Ledesma, LEYLA [address] [facility] [address] [place] [address] 03/10/2025 12:30 PM EDT Appointment [place] [address] 03/10/2025 1:00 PM EDT Appointment [facility] Medical Oncology [place], [place] [phone] Tacho Echavarria MD [address] [place] [address] 04/29/2025 9:15 AM EDT Appointment [place] [address] Batool Celis MD [address] [place] [address] [place] [address] 05/19/2025 2:15 PM EST Office Visit [facility] [address] [facility] [address] [place] [address] Sin Tran MD [address] [facility] [place] [address] 08/12/2025 10:40 AM EST Appointment [facility] Women's Wellness [facility] [place] [address] Matt Ulrich MD [address] [place] [address] [address] [place] [address] documented as of this encounter Goals Goal Patient Goal Type Associated Problems Recent Progress Patient-Stated? Author Blood Pressure < 140/90 Blood Pressure 121/77(02/04 2:04 PM EDT) No Chetna Cedeno MD Breast [facility] Breast Health On track(2024 11:27 AM [...] documented as of this encounter Care Teams Marriage Counselor Relationship Specialty [place] [address] [place] [address] PCP - General 06/21/10 Arlyn Schmidt MD [address] [place], [place] [id number] Consulting Physician Internal Medicine-Endocrinology , Diabetes & Metabolism 11/28/20 Tacho Echavarria MD 1 [place], [place] [id number] Internal Medicine-Medical Oncology 11/12/23 Matt Ulrich MD 1 [place], [place] [address] Surgery-Surgical Oncology 12/04/23 Eze Brock Pastoral Care 12/13/23 Cheryl Nair, RN Oncology Nurse Navigator 03/25/2412/13 Annette Walker, ARACELI Grouter Helper 05/13/24 Batool Celis MD 1 [facility] CANCER [place], [place] [phone] Radiation Oncologist Radiology-Radiation Oncology 06/08/24 documented as of this encounter
--- OUTSIDE RECORDS SUMMARY | 2025-02-17 12:41 | XMS_ITS | Encounter Summary ---
Author Organization [place] [address] Care Team Providers Care Machine Quilt Stuffer Name Role Phone Chetna Cedeno MD Primary Care Provider [phone] Arlyn Schmidt MD Unavailable [phone] Tacho Echavarria MD Unavailable [phone] Matt Ulrich MD Unavailable [phone] Eze Brock Unavailable Shilpa Cline RN Unavailable [phone] Cheryl Nair RN Unavailable [phone] Ophelia Lala RN Unavailable Glo Lee RN Unavailable Unavailab Sanam Evans BIRD TRAPPER Unavailable Unavailable Hilary Clemens RN Unavailable Unavaila Ruthy Clayton RN Unavailable Unavailable Rayna Partida RN Unavailable Unavailab Artur Nelson RN Unavailable Unavailable Annette Walker BIRD TRAPPER Unavailable [phone] Emmie Crain RN Unavailable Unavailable Brigida Enriquez RN Unavailable Unavailable Fidel Rainey RN Unavailable Unavailable Batool Celis MD Unavailable [phone] Encounter Details Date Type Department Care Team (Late st Contact Info) Description 03/18/2024 Lab Requisition [facility] [place] [address] Provider, Unknown Malignant neoplasm of unspecified site [...] any clubs o r organizations such as amish groups, unions, fraternal or athletic groups, or [...] Date Recorded PHQ-2 Total Score 0 11/07/2023 [facility] of Occupat ional [...] health care facility (including now)? No 11/07/2023 Education Answer Date [...] 11:40 AM EDT Office Visit [facility] [place] [address] [place] [address] [place] [address] [place] [address] 03/02/2025 12:45 PM EDT Procedure visit [facility] [address] [facility] [address] [address] [place] [address] Samm Ledesma, TREATMENT SUPERVISOR [address] [facility] [address] [place] [address] 03/10/2025 12:30 PM EDT Appointment [facility] [place], [place] 1055517 03/10/2025 1:00 PM EDT Appointment [facility] Medical Oncology [place], [place] 10[address] Tacho Echavarria MD [address] [place] [id number] 04/29/2025 9:15 AM EDT Appointment [facility] RAD ONC [place], [place] [phone] Batool Celis MD [address] [place] [address] CANCER CARE [place], [place] [phone] 05/19/2025 2:15 PM EST Office Visit [facility] [address] [place] [address] [address] [place] [address] Sin Tran MD [address] [place] [address] 08/12/2025 10:40 AM EST Appointment [facility] Women's Wellness [place] [facility] [place] [address] Matt Ulrich MD [address] [place] [address] DR MUSA Hameed [facility] [place] [address] documented as of this encounter Goals Goal [...] EDT) CASE REPORT Surgical Pathology Report Case: [id number] Authorizing Provider: Provider, Unknown Collected: 03/18/2024 1327 Ordering Location: [facility] Received: 03/18/2024 1327 Pathologist: Diane Ellis MD Specimen: Breast, Right, Request for case [id number] slides to [facility] Pathology. 05/04/2024 1:26 PM EDT [facility] FINAL DIAGNOSIS Results will be scanned in this case as an addendum. 05/04/2024 1:26 PM EDT [facility] at 1329 EDT EMBEDDED IMAGES 05/04/2024 1:26 PM EDT [facility] ADDENDUM Refer to [facility] Surgical Pathology Report. 05/04/2024 1:26 PM EDT [facility] Addendum electronically signed by Diane Ellis MD on 05/04/2024 at 1326 EDT Tissue RIGHT BREAST STRUCTURE / Unknown 03/18/2024 1:27 PM EDT 03/18/2024 1:27 PM EDT us Unknown Provider PATHOLOGY ORDERABLES Edited Res ult - Final [facility] 1 [place] [address] documented in this encounter Visit Diagnoses Diagnosis Malignant neoplasm of unspecified site of right female breast (HCC) documented in this encounter Additional Health Concerns Infection Onset Date Last Indicated Resolved Time COVID-19 09/04/2024 09/04/2024 09/24/2024 10:1 2 PM EDT Assessment Noted Time PHQ-9 Depression Total Score: 12 024 12:00 PM EDT documented as of this encounter Care Teams Machine Quilt Stuffer Relationship Specialty [place] [address] [place] [address] PCP - General 06/21/10 Arlyn Schmidt MD [facility] [place] [address] Consulting Physician Internal Medicine-Endocrinolog y, Diabetes & Metabolism 11/28/20 Tacho Echavarria MD [address] [place] [address] Internal Medicine-Medical Oncology 11/12/23 Matt Ulrich MD [address] [place] [address] Surgery-Surgical Oncology 12/04/23 Eze Brock Pastoral Care 12/13/23 Shilpa Cline, RN Oncology Nurse Navigator 02/04/2403/09 Cheryl Nair, RN Oncology Nurse Navigator 03/25/2412/13 Ophelia Lala, RAUL Registered Nurse Infusion Therapy 03/27/24 03/27/24 Glo Lee, RN Registered Nurse Infusion Therapy 04/03/24 04/03/24 Sanam Murray, BIRD TRAPPER Mortgage Servicing Specialist 04/10/24 07/30/24 Hilary Clemens, RN Registered Nurse Infusion Therapy 04/21/24 04/21/24 Ruthy Walker RN Registered Nurse Infusion Therapy 04/24/24 04/24/24 Rayna Partida, RN Registered Nurse Infusion Clinic 05/01/24 05/01/24 Artur Roberts RN Registered Nurse Infusion Therapy 05/07/24 05/07/24 Annette Walker, BIRD TRAPPER Mortgage Servicing Specialist 05/13/24 Emmie Crain, RN Registered Nurse Infusion Therapy 05/14/24 05/14/24 Brigida Enriquez, RN Registered Nurse Infusion Clinic 05/21/24 05/21/24 Fidel Rainey, RN Registered Nurse Infusion Therapy 05/28/24 05/28/24 Batool Celis MD 1 [facility] [place] [place] [address] Radiation Oncologist Radiology-Radiation Oncology 06/08/24 documented as of this encounter
--- OUTSIDE RECORDS SUMMARY | 2025-02-17 12:42 | XMS_ITS | Encounter Summary ---
Author Organization [place] [address] Care Team Providers Care Lathe Machine Operator Name Role Phone Chetna Cedeno MD Primary Care Provider [phone] Arlyn Schmidt MD Unavailable [phone] Tacho Echavarria MD Unavailable [phone] Matt Ulrich MD Unavailable [phone] Eze Brock Unavailable Annette Walker Unavailable [phone] Batool Celis MD Unavailable [phone] Encounter Details Date Type Department Care Team (Late st Contact Info) Description 02/15/2025 Telephone Cancer Care Medical Oncology [place], [place] [phone] Tacho cEhavarria MD [address] [place] [address] [id number] Social History Tobacco Use Types Packs/Day Years [...] from your doctor or pharmacy? Never 11/07/2023 [facility] Utilities Answer Date Recorded In the [...] often do you attend chur ch or cheondoism services? 1 to 4 times per year [...] Date Recorded PHQ-2 Total Score 5 07/07/2024 [facility] [place] of Occupat ional Health - Occupational Stress [...] in a jail (including now)? No 11/07/2023 [facility] IP [...] Author No 12/06/2022 2:08 PM OBEDT Macarena Maroin CCMA * Because of a physical, mental [...] Telephone Encounter - Rosana Gupta RN - 02/15/2025 9:56 AM EDT copy of letter for air conditioning unit will be at the investment associate desk on the second floor. Copy also placed in scan pile documented in this encounter Plan of Treatment Upcoming Encounters Date Type Department Care Team (Late st Contact Info) Description 03/02/2025 11:40 AM EDT Office Visit [facility] [address] [place] [address] [place] [address] [place] [address] 03/02/2025 12:45 PM EDT Procedure visit [facility] [address] [facility] [address] [place] [address] Samm Ledesma APRN [address] [facility] [address] [place] [address] 03/10/2025 12:30 PM EDT Appointment [place] [address] 03/10/2025 1:00 PM EDT Appointment [place] [address] Tacho Echavarria MD [address] [place] [address] 04/29/2025 9:15 AM EDT Appointment [facility] [place] [place] [address] Batool Celis MD [address] [facility] [place] [address] 05/19/2025 2:15 PM EST Office Visit [facility] [address] [place] [address] [place] [address] Sin Tran MD [address] [place] [address] [place] [address] 08/12/2025 10:40 AM EST Appointment [facility] Women's Wellness [facility] [place] [address] Matt Ulrich MD [address] [facility] [address] [place] [address] documented as of this encounter Goals Goal [...] documented as of this encounter Care Teams Lathe Machine Operator Relationship Specialty [place] [address] [place] [address] PCP - General 06/21/10 Arlyn Schmidt MD [address] [place] [address] Consulting Physician Internal Medicine-Endocrinology, Diabetes & Metabolism 11/28/20 Tacho Echavarria MD 1 [place], [place] [address] Internal Medicine-Medical Oncology 11/12/23 Matt Ulrich MD 1 [place] [address] Surgery-Surgical Oncology 12/04/23 Eze Brock Pastoral Care 12/13/23 Annette Walker, ARACELI Hockey Instructor 05/13/24 Batool Celis MD 1 [facility] [place] [address] Radiation Oncologist Radiology-Radiation Oncology 06/08/24 documented as of this encounter
--- OUTSIDE RECORDS SUMMARY | 2025-02-17 12:42 | XMS_ITS | Encounter Summary ---
Author Organization [place] [address] Care Team Providers Care Mangle Press Catcher Name Role Phone Chetna Cedeno MD Primary Care Provider [phone] Arlyn Schmidt MD Unavailable [phone] Tacho Echavarria MD Unavailable [phone] Matt Ulrich MD Unavailable [phone] Eze Brock Unavailable Annette Walker OIL FIELD WORKER Unavailable [phone] Batool Celis MD Unavailable [phone] Encounter Details Date Type Department Care Team (Late st Contact Info) Description 02/04/20[address] Social Work [facility] Cancer Care [facility] [place] [address] Annette Walker, OIL FIELD WORKER Social History Tobacco Use Types Packs/Day Years [...] from your doctor or pharmacy? Never 11/07/2023 [facility] Utilities Answer Date Recorded In the past 12 months has [place], oil, or water [employer] threatened to shut off services in your [...] 07/07/2024 [facility] of Occupat ional Health [...] in a penitentiary (including now)? No 11/07/2023 [facility] IP [...] - 02/04/2025 1:42 PM EDT 02/04/25 1341 [place] Assessment Referred By DT Disease/[place] Fish Dressing Machine Feeder Assignment Breast cancer Referral Location: [facility] Reason for Referral DT Identified Needs Adjustment to illness;Education/Information;Mental Health;Transportation Social Work Interventions Education/Information;Brief Couseling/Support;Transportation Distress Screening SW Reviewed Yes On this date, ARACELI Spears, FINGERPRINTER met with patient in response to receipt of a distress tool submitted on patients behalf. Patient's distress tool rating was 10 and FINGERPRINTER provided brief counseling/support to Patient. Patient explained she wanting to moved forward with her life but various issues are causing set backs including a recent hospitalization and newly discovered blood clot in her lung. Patient is continuing telehealth therapy with therapist, Jenniffer and although she had initial appointment with [facility] for medication management, she has not follow up with recommended appointment and request to refill medication has been declined. Patient states she had a reaction to the medication prescribed and has been taking medication prescribed by Dr. Echavarria's office for her depression. 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 FINGERPRINTER suggested communication with [facility] regarding side effects and possible alternatives. Patient expresses great relief of being out of the [facility] away from unhealthy relationships but has run into some issues with her new housing. She is working closely with [facility] to move to a lower floor and resolve issues including HVAC issues. She received donated air conditioner from [facility] and [facility] has allowed that unit. FINGERPRINTER provided gas cards to assist Patient with fuel costs associated with long drive to her home. Patient expressed that she is focusing on stabilizing her health, gaining strength, and hopes to engage in a volunteer capacity in her new community soon. No other needs identified at this time. FINGERPRINTER remains available to support as needed. documented in this encounter Plan of Treatment Upcoming Encounters Date Type Department Care Team (Late st Contact Info) Description 03/02/2025 11:40 AM EDT Office Visit [facility] [place] [facility] [address] [place] [address] [place] [address] [place] [address] 03/02/2025 12:45 PM EDT Procedure visit [facility] [address] [facility] [address] [place] [address] Samm Ledesma, COMMERCIAL OCEAN CLAMMER [address] [facility] [address] [place], [place] [address] 03/10/2025 12:30 PM EDT Appointment [facility] [place], [place] [phone] 03/10/2025 1:00 PM EDT Appointment [place] [address] Tacho Echavarria MD [address] [place] [id number] 04/29/2025 9:15 AM EDT Appointment [place] [address] Batool Celis MD [address] [place] [address] CANCER CARE [place], [place] [id number] 05/19/2025 2:15 PM EST Office Visit [facility] [address] [facility] [address] [place] [address] Sin Tran MD [address]00 [place] [address] 08/12/2025 10:40 AM EST Appointment [facility] Women's Wellness [place] [facility] [place] [address] Matt Ulrich MD [address] [place] [address] [place] [address] documented as of this encounter Goals Goal [...] documented as of this encounter Care Teams Mangle Press Catcher Relationship Specialty [place] [address] [place] [id number] PCP - General 06/21/10 Arlyn Schmidt MD [address] [place], [place] [address] Consulting Physician Internal Medicine-Endocrinology, Diabetes & Metabolism 11/28/20 Tacho Echavarria MD 1 [place] [address] Internal Medicine-Medical Oncology 11/12/23 Matt Ulrich MD 1 [place] [address] Surgery-Surgical Oncology 12/04/23 Eze Brock Pastoral Care 12/13/23 Annette Walker, ARACELI Fish Dressing Machine Feeder 05/13/24 Batool Celis MD 1 [facility] [place] [address] Radiation Oncologist Radiology-Radiation Oncology 06/08/24 documented as of this encounter
--- OUTSIDE RECORDS SUMMARY | 2025-02-17 12:42 | XMS_ITS | Encounter Summary ---
Author [place] [address] Care Team Providers Care Clinical Care Coordinator Name Role Phone Chetna Cedeno MD Primary Care Provider [phone] Arlyn Schmidt MD Unavailable [phone] Tacho Echavarria MD Unavailable [phone] Matt Ulrich MD Unavailable [phone] Eze Brock Unavailable Annette Walker Unavailable [phone] Batool Celis MD Unavailable [phone] Reason for Visit * Reason Onset Date Comments Other 02/05/2025 BW Encounter Details Date Type Department Care Team (Late st Contact Info) Description 02/05/2025 Telephone [facility] [place] [address] [place] [address] [place] [address] [place] [address] Other (BW) Social History Tobacco Use [...] a care home (including now)? No 11/07/2023 [facility] IP Transportation Answer D ate Recorded [...] potassium tabs for her to take to [facility] in [place] * Telephone Encounter - Destiny Alejandre CCMA [...] 11:40 AM EDT Office Visit [facility] [place] [address] [place] [address] [place] [address] [place] [address] 03/02/2025 12:45 PM EDT Procedure visit [facility] [address] [place] [address] Samm Ledesma, WATCHGUARD [address] [facility] [address] [place] [address] 03/10/2025 12:30 PM EDT Appointment [facility] [place], [place] [id number] 03/10/2025 1:00 PM EDT [facility]ment [facility] [place] [address] Tacho Echavarria MD [address] [place] [address] [id number] 04/29/2025 9:15 AM EDT Appointment [facility] [place] [address] Batool Celis MD [address] [place] [address] [place] [address] 05/19/2025 2:15 PM EST Office Visit [address] [address] Sin Tran MD [address] [place] [address] 08/12/2025 10:40 AM EST Appointment [facility] Women's Wellness [facility] [place] [address] Matt Ulrich MD [address] [place] [address] [address] [place] [address] documented as of this encounter Goals Goal [...] as of this encounter Care Teams Clinical Care Coordinator Relationship Specialty Start [place] [address] [place] [address] PCP - General 06/21/10 Arlyn Schmidt MD [address] [place] [address] Consulting Physician Internal Medicine-Endocrinology, Diabetes & Metabolism 11/28/20 Tacho Echavarria MD 1 [place] [address] Internal Medicine-Medical Oncology 11/12/23 Matt Ulrich MD 1 [place] [address] Surgery-Surgical Oncology 12/04/23 Eze Brock Pastoral Care 12/13/23 Annette Walker, ARACELI Crisis Specialist 05/13/24 Batool Celis MD [address] [place] [address] [place] [address] Radiation Oncologist Radiology-Radiation Oncology 06/08/24 documented as of this encounter
--- OUTSIDE RECORDS SUMMARY | 2025-02-17 12:42 | XMS_ITS | Encounter Summary ---
Author Organization [place] [address] Care Team Providers Care J2Ee Architect Name Role Phone Chetna Cedeno MD Primary Care Provider [phone] Arlyn Schmidt MD Unavailable [phone] Tacho Echavarria MD Unavailable [phone] Matt Ulrich MD Unavailable [phone] Eze Brock Unavailable Annette Walker Unavailable [phone] Batool Celis MD Unavailable [phone] Reason for Visit * Reason Onset Date Comments Other 02/03/2025 Pain pump meds Encounter Details Date Type Department Care Team (Late st Contact Info) Description 02/03/2025 Telephone [facility] [address] [address] Sin Tran MD [address] [place] [address] Other (Pain pump meds) Social History [...] doctor or pharmacy? Never 11/07/2023 [facility] Utilities Answer Date Recorded In the [...] often do you attend chur ch or adventism services? 1 to 4 times per year [...] in a alf (including now)? No 11/07/2023 [facility] IP Transportation Answer D ate [...] 11:40 AM EDT Office Visit [facility] [place] [address] [place] [address] [place] [address] [place] [address] 03/02/2025 12:45 PM EDT Procedure visit [facility] [address] [facility] [address] [place] [address] Samm Ledesma, MAIL TECHNICIAN [address] [facility] [address] [place] [address] 03/10/2025 12:30 PM EDT Appointment [place] [address] 03/10/2025 1:00 PM EDT Appointment [facility] [place] [address] Tacho Echavarria MD [address] [place] [address] 04/29/2025 9:15 AM EDT Appointment [facility] RAD [facility]C [place], [place] [id number] Batool Celis MD 1 [facility] [place] [address] 05/19/2025 2:15 PM EST Office Visit [address] [address] Sin Tran MD [address] [place] [address] 08/12/2025 10:40 AM EST Appointment [facility] Women's Wellness [facility] [place] [phone] Matt Ulrich MD 20 [facility] 254 [place] [id number] documented as of this encounter Goals Goal [...] documented as of this encounter Care Teams J2Ee Architect Relationship Specialty [place] [address] [place] [address] PCP - General 06/21/10 Arlyn Schmidt MD [address] [place], [place] [phone] Consulting Physician Internal Medicine-Endocrinology, Diabetes & Metabolism 11/28/20 Tacho Echavarria MD 1 [place] [address] Internal Medicine-Medical Oncology 11/12/23 Matt Ulrich MD 1 [place], [place] [id number] Surgery-Surgical Oncology 12/04/23 Eze Brock Pastoral Care 12/13/23 Annette Walker, ARACELI Welding Machine Operator Electron Beam 05/13/24 Batool Celis MD 1 [facility] CANCER CARE [place], [place] [id number] Radiation Oncologist Radiology-Radiation Oncology 06/08/24 documented as of this encounter
--- OUTSIDE RECORDS SUMMARY | 2025-02-17 12:42 | XMS_ITS | Encounter Summary ---
Author Organization [place] [address] Care Team Providers Care Fagoting Machine Operator Name Role Phone Chetna Cedeno MD Primary Care Provider [phone] Arlyn Schmidt MD Unavailable [phone] Tacho Echavarria MD Unavailable [phone] Matt Ulrich MD Unavailable [phone] Eze Brock Unavailable Annette Walker Unavailable [phone] Batool Celis MD Unavailable [phone] Reason for Visit * Reason Onset Date Comments Appointment Needed 02/04/2025 Encounter Details Date Type Department Care Team (Late st Contact Info) Description 02/04/2025 Telephone [facility] [place] [address] Aliya Harden, Clerical Staff Appointment [...] th e electric, gas, oil, or water [employer] threatened to shut off services in your [...] Score 5 07/07/2024 [facility] [place] of Occupat ional Health - Occupational Stress [...] a skilled nursing (including now)? No 11/07/2023 [facility] [...] 11:40 AM EDT Office Visit [facility] [place] [address] [place] [address] [place] [address] [place] [address] 03/02/2025 12:45 PM EDT Procedure visit [facility] [address] [facility] [address] [place] [address] Samm Ledesma, UNION REPRESENTATIVE [address] [facility] [address] [place] [id number] 03/10/2025 12:30 PM EDT Appointment [place] [address] 03/10/2025 1:00 PM EDT Appointment [facility] [place] [address] Tacho Echavarria MD [address] [place] [address] [id number] 04/29/2025 9:15 AM EDT Appointment [place] [address] Batool Celis MD [address] [place] [address] 05/19/2025 2:15 PM EST Office Visit [address] [address] Sin Tran MD [address] [place] [address] 08/12/2025 10:40 AM EST Appointment [facility] Women's Wellness [facility] [place] [address] Matt Ulrich MD [address] [place] [address] 254 [place] [address] documented as of this encounter Goals Goal [...] documented as of this encounter Care Teams Fagoting Machine Operator Relationship Specialty Start [place] [address] [place] [address] PCP - General 06/21/10 Arlyn Schmidt MD [address] [place] [address] Consulting Physician Internal Medicine-Endocrinology, Diabetes & Metabolism 11/28/20 Tacho Echavarria MD 1 [place] [address] Internal Medicine-Medical Oncology 11/12/23 Matt Ulrich MD 1 [place] [address] Surgery-Surgical Oncology 12/04/23 Eze Brcok Pastoral Care 12/13/23 Jasmyn Walkerica, SALVAGE CUTTER Vice President Consulting Services 05/13/24 Batool Celis MD [address] [place] [address] [place] [address] Radiation Oncologist Radiology-Radiation Oncology 06/08/24 documented as of this encounter
--- OUTSIDE RECORDS SUMMARY | 2025-02-17 12:43 | XMS_ITS | Encounter Summary ---
Author [place] [address] Care Team Providers Care Technical Sales Support Specialist Name Role Phone Chetna Cedeno MD Primary Care Provider [phone] Arlyn [place] MD Unavailable [phone] Tacho Echavarria MD Unavailable [phone] Matt Ulrich MD Unavailable [phone] Eze Brock Unavailable Annette Walker Unavailable [phone] Batool Celis MD Unavailable [phone] Reason for Visit * Reason Onset Date Comments Integrative Oncology Referral 02/05/2025 Encounter Details Date Type Department Care Team (Late st Contact Info) Description 02/05/2025 Telephone [facility] ONC [place], [place] [phone] Narda Vickers, Clerical Staff Integrative Oncology Referral [...] th e electric, gas, oil, or water [employer] threatened to shut off services in your [...] Recorded PHQ-2 Total Score 5 07/07/2024 [facility] [place] of Occupat ional Health - Occupational Stress [...] in a detention (including now)? No 11/07/2023 [facility] IP Transportation [...] Clerical Staff - 02/05/2025 11:38 AM EDT Intent message sent with Integrative Oncology information and newsletter. Narda documented in this encounter Plan of Treatment Upcoming Encounters Date Type Department Care Team (Late st Contact Info) Description 03/02/2025 11:40 AM EDT Office Visit [facility] [address] [place] [address] [place] [address] [place] [address] 03/02/2025 12:45 PM EDT Procedure visit [facility] [address] [facility] [address] [place] [address] Samm Ledesma, DISINTEGRATOR FEEDER [address] [facility] [address] [place] [address] 03/10/2025 12:30 PM EDT Appointment [place] [address] 03/10/2025 1:00 PM EDT Appointment [place] [address] Tacho Echavarria MD [address] [place] [address] 04/29/2025 9:15 AM EDT Appointment [facility] RAD ONC [place], [place] [phone] Batool Celis MD 1 [facility] [place] [address] 05/19/2025 2:15 PM EST [facility] [address] [facility] 401 [facility] 1[address] [place] [address] Sin Tran MD [facility] [place] [address] 08/12/2025 10:40 AM EST Appointment [facility] Women's Wellness [facility] [place] [address] Matt Ulrich MD 20 [facility] 254 [place] [address] documented as of this encounter [...] documented as of this encounter Care Teams Technical Sales Support Specialist Relationship Specialty [place] [address] [place] [address] PCP - General 06/21/10 Arlyn Schmidt MD [address] [place] [address] Consulting Physician Internal Medicine-Endocrinology, Diabetes & Metabolism 11/28/20 Tacho Echavarria MD 1 [place] [address] Internal Medicine-Medical Oncology 11/12/23 Matt Ulrich MD 1 [place] [address] Surgery-Surgical Oncology 12/04/23 Eze Brock Pastoral Care 12/13/23 Annette Walker, ARACELI Resin Remover 05/13/24 Batool Celis MD 1 [facility] [address] Radiation Oncologist Radiology-Radiation Oncology 06/08/24 documented as of this encounter
--- OUTSIDE RECORDS SUMMARY | 2025-02-17 12:43 | XMS_ITS | Referral Summary ---
Author Organization [facility] Address [address] [place] [address] Phone Care Team Providers Care Emission Technician Name Role Phone Chetna Cedeno MD Primary Care Provider [phone] Encounters Date Type Department Care Team Description 01/02/2025 4:26 PM EDT - 01/02/2025 7:27 PM EDT Emergency [facility] Emergency Department [address] [place] [address] Dallin Espinoza MD Heat exhaustion, [...] NITROGEN 16 8 - 26 mg/dL [facility] [place] SODIUM 140 135 - 145 mmol/L [facility] [place] POTASSIUM 3.2(L) 3.6 - 5.1 mmol/L [facility] CHLORIDE 107 98 - 111 mmol/L [facility] CO2 20(L) 21 - 31 mmol/L [facility] [place] [place] GLUCOSE, RANDOM 89 70 - 99 mg/dL [facility] [place] CREATININE 1.06 0.60 - 1.20 mg/dL [facility] ANION GAP 13 4 - 16 mmol/L [facility] [place] CALCIUM 9.0 8.5 - 10.4 mg/dL [facility] [place] ESTIMATED GFR 61 >59 mL/min/1.7 3 m2 [facility] [place] Comment: Estimated GFR was calculated using the CKD-EPI cr (2020) equation refit without race. The equation is recommended by the National Kidney Foundation - [place] Society of Nephrology Task Force. Tested at [facility] [id number] [place] [address] Whole Blood 01/02/2025 5:13 PM EDT 01/02/2025 5:25 PM EDT us Dallin Espinoza MD LAB BLOOD ORDERABLES Final Result [facility] [address] [place] [address] [address] * (ABNORMAL) CBC w/ Diff (01/02/2025 5:13 PM EDT) WBC 7.1 3.6 - 10.5 THOU/mcL [facility] [place] RBC 3.75(L) 3.80 - 5.20 MIL/mcL [facility] [place] HEMOGLOBIN 11.2(L) 12.0 - 15.2 g/dL [facility] [place] HEMATOCRIT 33.6(L) 36 - 46 % [facility] MCV 89.6 82 - 97 fL [facility] MCH 30.0 27 - 33 pg [facility] [place] MCHC 33.5 32 - 36 g/dL [facility] [place] RDW 16.0 12.3 - 17.0 % [facility] PLATELET 206 140 - 375 THOU/mcL [facility] [place] MPV 6.9(L) 7.0 - 11.5 fL [facility] [place] ABS. NEUTROPHIL 3.60 1.80 - 7.70 THOU/mcL [facility] [place] ABS LYMPHS 3.00 1.00 - 4.00 THOU/mcL [facility] [place] ABS MONOS 0.30 0.20 - 0.90 THOU/mcL [facility] [place] ABS EOS 0.10 0.03 - 0.45 THOU/mcL [facility] [place] ABS BASOS 0.10 0.00 - 0.20 THOU/mcL [facility] [place] SEGS 51 % [facility] [place] LYMPHOCYTES 43 % [facility] MONOCYTES 4 % [facility] EOSINOPHIL 1 % [facility] BASOPHILS 1 % [facility] [place] Comment:Tested at [facility] [address] [facility] [address] Whole Blood 01/02/2025 5:13 PM EDT 01/02/2025 5:25 PM EDT Dallin Espinoza MD LAB BLOOD ORDERABLES Final Result [facility] [address] [place] [address] [facility] [place] [address] [place] [address] * ECG 12 lead (01/02/2025 4:37 PM [...] QTcF 417 ms TH TRACEMASTER QRS Horizontal [place] -19 deg TH TRACEMASTER QRS AXIS 16 deg TH TRACEMASTER I-40 Horizontal [place] 46 deg TH TRACEMASTER I-40 FRONT AXIS -17 deg TH TRACEMASTER T-40 Horizontal [place] -50 deg TH TRACEMASTER T-40 Front [place] 51 deg TH TRACEMASTER T Horizontal [place] 52 deg TH TRACEMASTER T WAVE AXIS 16 deg TH TRACEMASTER S-T Horizontal [place] 60 deg TH TRACEMASTER S-T Front [place] 24 deg TH TRACEMASTER ECG IMPRESSION - BORDERLINE ECG - TH TRACEMASTER ECG IMPRESSION SR-Sinus rhythm-normal P axis, V-rate 50-99 TH TRACEMASTER ECG IMPRESSION LVHVP-Probable left ventricular hypertrophy-mul tiple LVH criteria TH TRACEMASTER ECGGUID [id number] TH TRACEMASTER 01/02/2025 4:37 PM EDT us Dallin Espinoza MD ECG ORDERABLES Final Resu lt TH TRACEMASTER from Last 3 Months Insurance [facility] MEDICAID Care Teams Emission Technician Relationship Specialty Start Date End Date Chetna Cedeno MD [facility] [address] [place] [address] PCP - General Family Medicine 01/02/25
--- OUTSIDE RECORDS SUMMARY | 2025-02-17 12:43 | XMS_ITS | Encounter Summary ---
Author Organization [place] [address] Care Team Providers Care Endocrinologist Name Role Phone Chetna Cedeno MD Primary Care Provider [phone] Arlyn Schmidt MD Unavailable [phone] Tacho cEhavarria MD Unavailable [phone] Matt Ulrich MD Unavailable [phone] Eze Brock Unavailable Annette Walker Unavailable [phone] Batool Celis MD Unavailable [phone] Reason for Visit * Reason Onset Date Comments Symptom Call 02/05/2025 lightheaded / he adache Encounter Details Date Type Department Care Team (Late st Contact Info) Description 02/05/2025 Telephone [facility] [place], [place] [phone] Tacho Echavarria MD [address] [place] [address] [phone] Symptom Call (lightheaded / headache ) Social [...] from your doctor or pharmacy? Never 11/07/2023 [facility] Utilities Answer Date Recorded In [...] any clubs o r organizations such as congregational groups, unions, fraternal or athletic groups, or [...] in a fpc (including now)? No 11/07/2023 [facility] IP [...] relief. Rates 4/10. Went to ER in [facility] last week r/t diarrhea, K was 2.5 [...] seen at: [facility] Preferred call back number: [phone] Explained to the caller, if this is a medical emergency please call 911 or go to the nearest emergency room. documented in this encounter Plan of Treatment Upcoming Encounters Date Type Department Care Team (Late st Contact Info) Description 03/02/2025 11:40 AM EDT Office Visit [facility] [place] [address] [place] [address] [place] [address] [place] [address] 03/02/2025 12:45 PM EDT Procedure visit [facility] [address] [facility] [address] [place] [address] Samm Ledesma, FISH BAIT PICKER [address] [facility] [address] [place] [address] 03/10/2025 12:30 PM EDT Appointment [facility] [place] [address] 03/10/2025 1:00 PM EDT Appointment [facility] On[facility] [place], [place] [phone] Tacho Echavarria MD [address] [place] [address] [id number] 04/29/2025 9:15 AM EDT Appointment [facility] [place] [address] Batool Celis MD [address] [place] [address] DR CANCER CARE [place], [place] [phone] 05/19/2025 2:15 PM EST Office Visit [address] [address] Sin Tran MD [address] [place] [address] 08/12/2025 10:40 AM EST Appointment [facility] Women's Wellness [facility] [place] [address] Matt Ulrich MD [address] [place] [address] documented as of this encounter Goals Goal [...] documented as of this encounter Care Teams Endocrinologist Relationship Specialty Start [place] [address] [place] [address] PCP - General 06/21/10 Arlyn Schmidt MD [address] [place], [place] [phone] Consulting Physician Internal Medicine-Endocrinology, Diabetes & Metabolism 11/28/20 Tacho Echavarria MD 1 [place] [address] Internal Medicine-Medical Oncology 11/12/23 Matt Ulrich MD 1 [place] [address] Surgery-Surgical Oncology 12/04/23 Eze Brock Pastoral Care 12/13/23 Annette Walker MSW Speech Therapist 05/13/24 Batool Celis MD [address] [place] [address] [place] [address] Radiation Oncologist Radiology-Radiation Oncology 06/08/24 documented as of this encounter
[2025-02-17 13:03] LABS: Hematocrit 31.7 % (37.0-47.0); Hemoglobin 10.7 g/dL (12.2-16.2); Immature Granulocytes % 0.4 %; Mean Corpuscular HGB Conc 33.8 g/dL (31.8-35.4); Mean Corpuscular Hemoglobin 31.6 pg (27.0-31.2); Mean Corpuscular Volume 93.5 fl (81-99); Nucleated Red Blood Cells % 0 %; Platelet Count 323 K/mm3 (142-424); Red Blood Count 3.39 M/mm3 (4.20-5.40); Red Cell Distribution Width-SD 49.1 fL; White Blood Count 5.5 K/mm3 (4.8-10.8)
[2025-02-17 13:38] LABS: Alanine Aminotransferase 14 U/L (12-78); Albumin Level 4.2 g/dl (3.5-5.0); Albumin/Globulin Ratio 1.8 (1.1-1.8); Alkaline Phosphatase 109 U/L (38-126); Anion Gap 10.7 mEq/L (5-15); Aspartate Amino Transferase 26 U/L (14-36); Bilirubin,Total 0.4 mg/dl (0.2-1.3); Blood Urea Nitrogen 10 mg/dl (7-17); Calcium 9.2 mg/dl (8.4-10.2); Carbon Dioxide 28 mmol/L (22.0-30.0); Chloride 103 mmol/L (98-107); Creatinine,Serum 0.90 mg/dl (0.52-1.04); Estimated Glomerular Filt Rate 65 ml/min (>60); GFR (African American) 78 ML/MIN (>60); Globulin 2.4 g/dL (1.3-3.2); Glucose 89 mg/dl (74-100); Potassium 3.7 mmoL/L (3.5-5.1); Sodium 138 mmol/L (136-145); Total Protein,Serum 6.6 g/dl (6.3-8.2)
== END 2025-02-17 23:59 | disposition home or self-care (01) ==
LOC: LAB 12:34
PROVIDERS: PCP Family Medicine; Visit Provider Internal Medicine Medical Oncology
DX: C50.919 Malignant neoplasm of unspecified site of unspecified female breast (principal)
CPT/HCPCS: 36415; 80053; 85025

== ENCOUNTER 2025-02-19 12:35 | Outpatient (CLI) | payer MEDICAID, SELFPAY ==
--- OUTSIDE RECORDS SUMMARY | 2025-01-02 16:26 | XMS_ITS | Encounter Summary ---
Author Organization [facility] SBO AND TP P Address [facility] [place] [address] Phone Care Team Providers Care Shuttle Spotter Name Role Phone Chetna Cedeno MD Primary Care Provider [phone] Reason for Visit * Reason Comments Heat Exposure Patient arrives via EMS from an event outside, states she was in [facility] and felt lightheaded, went to a [...] EDT - 01/02/2025 7:27 PM EDT Emergency [facility] Emergency Department [address] [place] [phone] [place] [address] [place] [address] Heat exhaustion, unspecified, initial encounter [T67.5XXA] Discharge [...] Care Everywhere. * POTASSIUM CONTENT OF FOODS (ARMENIAN) documented in this encounter Medications at Time [...] be directed to the Care Management Departments: [facility] [phone] or [facility] [phone] or [facility] [phone]. documented in this encounter ED Notes * Dallin Espinoza MD - 01/02/2025 4:48 PM EDT Images from the original note were not included. [facility] EMERGENCY DEPARTMENT ED Encounter Arrival Date: 01/02/251624 Meri Cole : 1965 [address] [place] [address] CSN: [id number] GIO: [id number] EMERGENCY DEPARTMENT - GENERAL NOTE CHIEF COMPLAINT Chief Complaint Patient presents with Heat Exposure Patient arrives via EMS from an event outside, states she was in [facility] and felt lightheaded,went to a tent [...] Resource Strain: Low Risk (07/07/2024) Received from [facility] Overall Financial Resource Strain (CARDIA) Difficulty of Paying Living Expenses: Not very hard Food Insecurity: No Food Insecurity (07/07/2024) Received from [facility] Hunger Vital Sign Worried About Running Out of Food in the Last Year: Never true Ran Out of Food in the Last Year: Never true Transportation Needs: No Transportation Needs (07/07/2024) Received from [facility] IP Transportation In the past 12 months, has lack of reliable transportation kept you from medical appointments, meetings, work or from getting things needed for daily living?: No Physical Activity: Insufficiently Active (07/07/2024) Received from [facility] Exercise Vital Sign Days of Exercise per Week: 3 days Minutes of Exercise per Session: 40 min Stress: Stress Concern Present (07/07/2024) Received from [facility] [place] of Occupational Health - Occupational Stress Questionnaire Feeling of Stress : Rather much Social Connections: Socially Isolated (11/07/2023) Received from [facility] Social Connection and Isolation Panel [NHANES] Frequency of Communication with Friends and Family: Once a week Frequency of Social Gatherings with Friends and Family: Once a week Attends Taoism Services: 1 to 4 times per year Active Member of Clubs or Organizations: No Attends Club or Organization Meetings: Never Marital Status: Never Housing Stability: High Risk (11/07/2023) Received from [facility] Housing Stability Vital Sign Unable to Pay [...] 428 ms QTcF 417 ms QRS Horizontal [place] -19 deg QRS AXIS 16 deg I-40 Horizontal [place] 46 deg I-40 FRONT AXIS -17 deg T-40 Horizontal [place] -50 deg T-40 Front [place] 51 deg T Horizontal [place] 52 deg T WAVE AXIS 16 deg S-T Horizontal [place] 60 deg S-T Front [place] 24 deg ECG IMPRESSION - BORDERLINE ECG - ECG IMPRESSION SR-Sinus rhythm-normal P axis, V-rate 50-99 ECG IMPRESSION LVHVP-Probable left ventricular hypertrophy-multiple LVH criteria ECGGUID [id number] CBC w/ Diff Collection Time: 01/02/25 5:13 [...] an event outside, states she was in [facility] and felt lightheaded,went to a tent [...] out of the sun in the heat. [place] dizzy lightheaded. Does feel slightly better after [...] Chetna Cedeno MD Family Medicine As needed [facility] [place] [address] [place] [address] Please note that some or all of this record was generated using voice recognition software. If there are any questions about the content of this document, please contact the author as some errors in sas etl developer may have occurred. Dallin Espinoza MD 01/02/25 1837 Dallin Espinoza MD 01/02/25 1848 * Rylie Darby Registered Nurse - 01/02/2025 4:30 PM EDT Triage Note Meri Cole presents to [facility] with complaint(s) of Heat Exposure (Patient arrives via EMS froman event outside, states she was in [facility] and felt lightheaded, went to a [...] (ABNORMAL) BAMP (Na,K,Cl,CO2,Glu,BUN,Creat,Ca) (01/02/2025 5:13 PM EDT) [facility] BLD [place]REA NITROGEN 16 8 - 26 mg/dL [place] SODIUM 140 135 - 145 mmol/L [facility] [place] POTASSIUM 3.2(L) 3.6 - 5.1 mmol/L [facility] [place] CHLORIDE 107 98 - 111 mmol/L [facility] [place] CO2 20(L) 21 - 31 mmol/L [facility] [place] GLUCOSE, RANDOM 89 70 - 99 mg/dL [facility] [place] CREATININE 1.06 0.60 - 1.20 mg/dL [facility] [place] ANION GAP 13 4 - 16 mmol/L [facility] [place] CALCIUM 9.0 8.5 - 10.4 mg/dL [facility] [place] ESTIMATED GFR 61 >59 mL/min/1.7 3 m2 [facility] [place] Comment: Estimated GFR was calculated using the CKD-EPI cr (2020) equation refit without race. The equation is recommended by the National Kidney Foundation - [place] [employer] of Nephrology Task Force. Tested at [address] [address] Whole Blood 01/02/2025 5:13 PM EDT 01/02/2025 5:25 PM EDT Dallin Espinoza MD LAB BLOOD ORDERABLES Final Result [facility] [address] [place] [address] [address] * (ABNORMAL) CBC w/ Diff (01/02/2025 5:13 PM EDT) [facility] WBC 7.1 3.6 - 10.5 THOU/mcL [place] RBC 3.75(L) 3.80 - 5.20 MIL/mcL [facility] [place] HEMOGLOBIN 11.2(L) 12.0 - 15.2 g/dL [facility] [place] HEMATOCRIT 33.6(L) 36 - 46 % [facility] [place] MCV 89.6 82 - 97 fL [facility] [place] MCH 30.0 27 - 33 pg CHEMI[place] [place] MCHC 33.5 32 - 36 g/dL [facility] [place] RDW 16.0 12.3 - 17.0 % [place] [place] PLATELET 206 140 - 375 THOU/mcL [facility] [place] MPV 6.9(L) 7.0 - 11.5 fL [facility] [place] ABS. NEUTROPHIL 3.60 1.80 - 7.70 THOU/mcL [facility] [place] ABS LYMPHS 3.00 1.00 - 4.00 THOU/mcL [facility] [place] ABS MONOS 0.30 0.20 - 0.90 THOU/mcL [facility] [place] ABS EOS 0.10 0.03 - 0.45 THOU/mcL [facility]MI[place] [place] ABS BASOS 0.10 0.00 - 0.20 THOU/mcL [facility]MI[place] [place] SEGS 51 % [facility] [place] LYMPHOCYTES 43 % CHEMISTR Y NORTH MONOCYTES 4 % CHEMISTR[facility] [place] EOSINOPHIL 1 % [facility]MISTR[facility] [place] BASOPHILS 1 % CHEMISTR[facility] [place] Comment:Tested at [facility] [id number] [place] [address] Whole Blood 01/02/2025 5:13 PM EDT 01/02/2025 5:25 PM EDT Dallin Espinoza MD LAB BLOOD ORDERABLES Final Result [facility] [address] [place] [address] [address] * ECG 12 lead (01/02/2025 4:37 PM [...] QTcF 417 ms TH TRACEMASTER QRS Horizontal [place] -19 deg TH TRACEMASTER QRS AXIS 16 deg TH TRACEMASTER I-40 Horizontal [place] 46 deg TH TRACEMASTER I-40 FRONT AXIS -17 deg TH TRACEMASTER T-40 Horizontal [place] -50 deg TH TRACEMASTER T-40 Front [place] 51 deg TH TRACEMASTER T Horizontal [place] 52 deg TH TRACEMASTER T WAVE AXIS 16 deg TH TRACEMASTER S-T Horizontal [place] 60 deg TH TRACEMASTER S-T Front [place] 24 deg TH TRACEMASTER ECG IMPRESSION - BORDERLINE ECG - TH TRACEMASTER ECG IMPRESSION SR-Sinus rhythm-normal P axis, V-rate 50-99 TH TRACEMASTER ECG IMPRESSION LVHVP-Probable left ventricular hypertrophy-mul tiple LVH criteria TH TRACEMASTER ECGGUID [id number] TH TRACEMASTER 01/02/2025 4:37 PM EDT Dallin [...] Raymundo) documented in this encounter Care Teams Shuttle Spotter Relationship Specialty Start Date End Date Chetna Cedeno MD [facility] [address] [place] [address] PCP - General Family Medicine 01/02/25 documented as of this encounter
--- OUTSIDE RECORDS SUMMARY | 2025-01-06 12:56 | XMS_ITS | Encounter Summary ---
Author Organization [place] [address] Care Team Providers Care Strapping Machine Tender Name Role Phone Chetna Cedeno MD Primary Care Provider [phone] Arlyn Schmidt MD Unavailable [phone] Tacho Echavarria MD Unavailable [phone] Matt Ulrich MD Unavailable [phone] Eze Brock Unavailable Annette Walker Unavailable [phone] Batool Celis MD Unavailable [phone] Encounter Details Date Type Department Care Team (Latest Contact Info) Description 01/06/2025 12:56 PM EDT - 01/06/2025 1:13 PM EDT Hospital Encounter [facility] [place], [place] [id number] Tacho Echavarria MD [address] [place] [address] [phone] Invasive ductal carcinoma of breast, female, right [...] from your doctor or pharmacy? Never 11/07/2023 [facility] Utilities Answer Date Recorded In [...] often do you attend chur ch or sikhism services? 1 to 4 times per year [...] Date Recorded PHQ-2 Total Score 5 07/07/2024 [facility] of Occupat ional Health - [...] any time in the past 12 m [facility], were you homeless or living in a usp (including now)? No 11/07/2023 [facility] IP Transportation Answer D ate Recorded [...] 4 fluticasone propionate (FLONASE) 50 mcg/actuation Nasl [place], Suspension 1 [place] by Nasal route daily. 1 Each 11 [...] 11:40 AM EDT Office Visit [facility] [address] [place] [address] [place] [address] [place] [address] 03/02/2025 12:45 PM EDT Procedure visit [facility] NEUROLOGY [facility]ECT[facility] [address] [place] [address] Samm Ledesma APRN [address] [facility] [address] [place] [address] 03/10/2025 12:30 PM EDT Appointment [place] [address] 03/10/2025 1:00 PM EDT Appointment [facility] Medical Oncology [place], [place] [phone] Tacho Echavarria MD [address] [place] [address] [id number] 04/29/2025 9:15 AM EDT Appointment [facility] RAD ONC [place], [place] [phone] Batool Celis MD [address] [place] [address] CANCER CARE [place], [place] [phone] 05/19/2025 2:15 PM EST Office Visit [address] [address] Sin Tran MD [address] [place] [address] 08/12/2025 10:40 AM EST Appointment [facility] [place] [address] Matt Ulrich MD [address] [place], [place] [address] documented as of this encounter Goals Goal [...] documented as of this encounter Care Teams Strapping Machine Tender Relationship Specialty [place] [address] [place] [address] PCP - General 06/21/10 Arlyn Schmidt MD [address] [place], [place] [phone] Consulting Physician Internal Medicine-Endocrinology, Diabetes & Metabolism 11/28/20 Tacho Echavarria MD [address] [place] [address] Internal Medicine-Medical Oncology 11/12/23 Matt Ulrich MD 1 [place] [address] Surgery-Surgical Oncology 12/04/23 Eze Brock Pastoral Care 12/13/23 Annette Walker, ARACELI Sales And Marketing Administrator 05/13/24 Batool Celis MD 1 [facility] [place] [address] Radiation Oncologist Radiology-Radiation Oncology 06/08/24 documented as of this encounter
--- OUTSIDE RECORDS SUMMARY | 2025-01-06 13:14 | XMS_ITS | Encounter Summary ---
Author Organization [place] [address] Care Team Providers Care Conditioner Tumbler Operator Name Role Phone Chetna Cedeno MD Primary Care Provider [phone] Arlyn Schmidt MD Unavailable [phone] Tacho Echavarria MD Unavailable [phone] Matt Ulrich MD Unavailable [phone] Eze Brock Unavailable Annette Walker Unavailable [phone] Batool Celis MD Unavailable [phone] Reason for Visit * Reason Comments Follow-up Breast Cancer Encounter Details Date Type Department Care Team (Latest Contact Info) Description 01/06/2025 1:14 PM EDT - 01/06/2025 11:59 PM EDT Hospital Encounter [facility] [place] [address] Tacho Echavarria MD [address] [place] [address] [phone] Invasive ductal carcinoma of breast, female, right (HCC); 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); Malignant neoplasm of right female breast, unspecified estrogen receptor status, unspecified site of breast (HCC); Port-A-Cath in place; Encounter for antineoplastic chemotherapy; Encounter for antineoplastic immunotherapy; Diarrhea, unspecified type; Chemotherapy-induced nausea; Encounter for monitoring aromatase inhibitor therapy; Anxiety about treatment; Acquired lymphedema; Reactive depression; Myalgia, unspecified site Discharge Disposition: Home or Self Care Social [...] doctor or pharmacy? Never 11/07/2023 [facility] Utilities Answer Date Recorded In [...] Date Recorded PHQ-2 Total Score 5 07/07/2024 [facility] [place] of Occupat ional Health - Occupational Stress [...] any time in the past 12 m [facility], were you homeless or living in a skilled nursing (including now)? No 11/07/2023 [facility] IP Transportation Answer D ate [...] Sign Reading Time Taken Comments Blood Pressure 112/75 01/06/2025 1:15 PM EDT Pulse 79 01/06/2025 1:15 PM EDT Temperature 36.6 C (97.8 F) 01/06/2025 1:15 PM EDT Respiratory Rate 16 01/06/2025 1:15 PM EDT Oxygen Saturation 98% 01/06/2025 1:15 PM EDT Inhaled Oxygen Concentration - - Weight 84.9 kg (187 lb 1.6 oz) 01/06/2025 1:15 P M EDT Height 160 cm (5' 3 ) 01/06/2025 1:15 PM EDT Body Mass Index 33.14 01/06/2025 1:15 PM EDT documented in this encounter Functional [...] 56 Tablet 4 02/04/2025 4:14 PM EDT abemaciclib (VERZENIO) 50 mg Oral TabletIndications :Invasive [...] 4 fluticasone propionate (FLONASE) 50 mcg/actuation Nasl Douglas, Suspension 1 Douglas by Nasal route daily. 1 Each 4 Inhalational Spacing Device (AEROCHAMBER MV) Misc Spacer 1 Each [place] [facility] [place]Non-Drug; Combo Route) route as needed. 1 Device [...] Progress Notes * Tacho Echavarria MD - 01/06/2025 1:20 PM EDT Images from the original note were not included. Patient: El Cole CSN: [id number] Date of : 1965 Age: 59 y.o. Date of Service: 01/06/2025 HEMATOLOGY/ONCOLOGY FOLLOW UP VISIT Primary Stock Speculator & Oncologist: Tacho Echavarria MD. Patient Care Team: Chetna Cedeno MD as PCP - General Arlyn Schmidt MD as Consulting Physician (Internal Medicine-Endocrinology, Diabetes & Metabolism) Tacho Echavarria MD (Internal Medicine-Medical Oncology) Matt Ulrich MD (Surgery-Surgical Oncology) Eze Brock as Pastoral Care Annette Walker MSW as Paramedical Aide Batool Celis MD as Radiation Oncologist (Radiology-Radiation Oncology) [address]nd [address] [facility] EVAL: [place], [place]: Dr Beata Kebede: [phone] Next of Kin: Daughter Ruthy Man ([phone]) Patient Contact info: [phone] DIAGNOSIS HISTORY DATE OF INITIAL CONSULTATION: 11/14/23; outside 2nd opinion at on 09/23/2024 CURRENT TREATMENT BREAST CA: adjuvant [place]-E regimen: Arimidex 1mg po daily + dose titration up of Abemacyclib (Verzenio) 50mg po bid -> 100 mg po bid, per NCCN guidelines TREATMENT HISTORY Oncology History Invasive ductal carcinoma of breast, female, right (HCC) 10/29/2023 Initial Diagnosis Invasive ductal carcinoma of right breast, grade 3 Ductal carcinoma in situ A. Breast, right, 6:00, Invasive ductal carcinoma, grade 3 - Invasive carcinoma spans 3 mm in greatest linear extent - Ductal carcinoma in situ (DCIS), high nuclear grade B. Breast, right, 5:00 Invasive ductal carcinoma grade 3 ER 92% UT 55% HER2 Negative HER-2 by FISH NEGATIVE 11/11/2023 - Consult Initial consultation with surgeon-Dr. Adryan Ulrich 11/11/2023 - Genetics 67 gene panel testing results were negative. 12/05/2023 - Chemotherapy Start of C1D1 of pre op AC dose dense chemo, with PEG-GCSF support as part of Misbah/Cytoxan x 4-> Taxol x12 weekly regimen 07/06/2024 - Pathology BREAST AND AXILLARY RIGHT MODIFIED RADICAL MASTECTOMY: ypT3, pN3a [RCB [...] Ductal carcinoma in situ (DCIS), grade 3, - DCIS spans at least 116 mm in the greatest extent. - Margins are negative for invasive carcinoma. - Margins are negative for DCIS. - Positive for extensive lymphovascular invasion. - Skin dermis involved by invasive carcinoma; epidermis is uninvolved. - Nipple dermis involved by invasive carcinoma; epidermis is uninvolved. - Positive for extensive dermal lymphatic invasion. - Radial scar. - Calcifications identified, associated with invasive carcinoma, DCIS and nonneoplastic parenchyma. - Thirteen of thirteen lymph nodes, positive for metastatic carcinoma (13/13). - Largest metastatic focus measures 33 mm. - Positive for foci of extranodal extension involving few nodes, measuring up to 3.5 mm. - Several lymph nodes show focal fibrosis suggestive of minimal tumor regression. 07/23/2024 - Pathology TIAGO ORDERED: Positive cell free DNA 08/12/2024 - [...] to GI tolerance for 2 yr planned ([place]-E regimen) Stage Clinical Stage IIIB (cT3, cN3a(f), cM0, G3, ER+, UT+, HER2-) Pathologic Stage ypT3, ypN3a, G3, ER+, UT+, HER2- Right breast cancer with T3 tumor, >5 [...] CalcPt Dosage Given to Date in Gy [id number] Session Dosage Given in Gy [id number] Reference Point ID LN Boost RP Dosage Given to Date in Gy 10 Session Dosage Given in Gy [id number] Reference Point ID [id number] ISO Dosage Given to Date in Gy [id number] Session Dosage Given in Gy [id number] Plan ID Nd Boost Plan Name Nd [...] breast (HCC) 10/14/2023 Migraines MS (multiple sclerosis) (HCC) Pituitary cyst Prediabetes PTSD (post-traumatic stress disorder) Sleep apnea no cpap Uterine prolapse 06/06/2011 PAST SURGICAL HISTORY Past Surgical History: Procedure Laterality Date APPENDECTOMY BREAST BIOPSY Right 10/25/2023 5:00 and 6:00 CHOLECYSTECTOMY GASTRIC BYPASS SURGERY N/A 05/01/2017 LAPAROSCOPIC SLEEVE GASTRECTOMY ; Surgeon: Marcus Perez MD; Location: [facility] MAIN OR; Service: General IR 2 LEVEL [...] SACRAL SINGLE LVL 08/03/2022 Sin Tran MD [facility] SPINE CTR IMAGING IR PORT PLACEMENT EQUAL OR > 5 YEARS 11/29/2023 IR PORT PLACEMENT EQUAL OR > 5 YEARS 11/29/2023 Joselito Goodwin MD [facility] IR LUMBAR DISC SURGERY 09/11/2012 LUMBAR LAMINECTOMY & DISCECTOMY L4-5 LEFT ; Surgeon: Hetal Borden MD; MASTECTOMY Right 07/06/2024 Right modified radical mastectomy; Surgeon: Matt Ulrich MD; Location: [facility] MAIN OR; Service:General SPINE SURGERY N/A 01/04/2021 PAIN PUMP PERMANENT IMPLANT; Surgeon: Munir Hilton MD; Location: [facility] MAIN OR; Service: Pain Management THORACIC SPINE SURGERY N/A 02/24/2020 SPINAL CORD STIMULATOR IMPLANT; Surgeon: Munir Hilton MD; Location: [facility] MAIN OR; Service: Pain Management TONSILLECTOMY UPPER GASTROINTESTINAL ENDOSCOPY UPPER GASTROINTESTINAL ENDOSCOPY N/A 01/26/2015 ESOPHAGOGASTRODUODENOSCOPY with biopsy and davis dilation; Surgeon: Stone Cronin MD; Location: [facility] ENDOSCOPY; Service: Endoscopy FAMILY HISTORY Family History [...] Cancer Ms.Stefanie Devorah Cole comes in today (01/06/2025) for an follow up, having completed her pre op ddAC/Taxane chemo for her high risk ER/UT positive large RIGHT BREAST Carcinoma. She has [...] having completed adjuvant Radiation, while on the [place]- adjuvant therapy treatment approach. Update (01/06/2025): Ms Cole comes in today reporting 100% compliance to Verzenio 100mg po bid and Arimidex, no new pain, other symptoms and no diarrhea or any nausea. Reports about 3-4 days of mild soft stools on lastescalation of Verzenio from 50 mg to 100mg, but now tolerating it well with no infections, diarrhea, abdominal cramps or any GI symptoms. Due to get her cell free DNA testing. Reports wt stable per home scale and [...] MEDICATIONS Current Outpatient Medications Medication abemaciclib (VERZENIO) 100 mg Oral Tablet abemaciclib (VERZENIO) 50 mg Oral Tablet albuterol [...] Device fluticasone propionate (FLONASE) 50 mcg/actuation Nasl Douglas, Suspension Inhalational Spacing Device (AEROCHAMBER MV) Misc Spacer lidocaine-prilocaine (EMLA) Top Cream LORazepam (ATIVAN) 0.5 [...] No current facility-administered medications for this encounter. Facility-Administered Medications Ordered in Other Encounters Medication Dose Route Frequency Last Rate Last Admin heparin flush 100 unit/mL injection 500 Units 500 Units Intravenous PRN sodium chloride 0.9 % sterile syringe Intravenous PRN 10 mL at 01/06/25 1317 PHYSICAL EXAM Vitals: 01/06/25 1315 BP: 112/75 BP Location: Left arm Patient Position: Sitting Pulse: 79 Resp: 16 Temp: 97.8 ??F (36.6 ??C) TempSrc: Oral SpO2: 98% Weight: 187 lb 1.6 oz (84.9 kg) Height: 5' 3 (1.6 m) Wt Readings from Last 6 Encounters: 01/06/25 187 lb 1.6 oz (84.9 kg) 12/10/24 193 lb 3.2 oz (87.6 kg) 12/01/24 191 lb (86.6 kg) 11/21/24 198 lb (89.8 kg) 11/11/24 194 lb 12.8 oz (88.4 kg) 11/09/24 195 lb (88.5 kg) Physical Exam Vitals reviewed. Constitutional: Appearance: [...] or performed during the hospital encounter of 01/06/25 CBC WITH DIFF Result Value Ref Range WBC 5.1 3.7 - 10.3 x10(3)/mcL RBC 3.61 (L) 3.90 - 5.20 x10(6)/mcL Hgb 11.0 (L) 11.2 - 15.7 g/dL Hct 33.2 (L) 34.0 - 45.0 % MCV 92.0 80.0 - 100.0 fL MCH 30.5 26.0 - 34.0 pg MCHC 33.1 30.7 - 35.5 g/dL RDW 14.5 <=14.9 % Platelet 170 155 - 369 x10(3)/mcL MPV 8.8 8.8 - 12.5 fL Neut # Prelim 3.3 1.6 - 6.1 x10(3)/mcL Neut Percent 65.2 % Imm Gran% 0.2 % Lymph Percent 28.1 % Lea Percent 4.3 % Eos Percent 1.8 % Baso Percent 0.4 % Neut # 3.3 1.6 - 6.1 x10(3)/mcL IMMGRAN# 0.0 0.0 - 0.1 x10(3)/mcL Lymph # 1.4 1.2 - 3.9 x10(3)/mcL Lea # 0.2 (L) 0.3 - 0.9 x10(3)/mcL Eos# 0.1 0.0 - 0.5 x10(3)/mcL Baso # 0.0 0.0 - 0.1 x10(3)/mcL COMPREHENSIVE METABOLIC PANEL Result Value Ref Range Sodium 140 136 - 145 mmol/L Potassium 3.8 3.5 - 5.0 mmol/L Chloride 108 (H) 98 - 107 mmol/L Total CO2 22 22 - 29 mmol/L Anion Gap 10 7 - 16 mmol/L Calcium 9.2 8.6 - 10.4 mg/dL Glucose Lvl 121 (H) 70 - 99 mg/dL BUN 16 6 - 20 mg/dL Creatinine 0.83 0.51 - 1.30 mg/dL Albumin 4.0 3.5 - 5.2 gm/dL Total Protein 6.6 6.4 - 8.3 gm/dL Bili Total 0.4 0.2 - 1.3 mg/dL ALT 9 <=41 U/L AST 14 <=40 U/L Alk Phos 127 (H) 36 - 123 U/L eGFR (CKD-EPIcr 2020) 82 >=60 mL/min/1.73 m2 VITAMIN B12/ FOLIC ACID Result Value Ref Range Vitamin B12 305 232 - 1,245 pg/mL Folate 15.80 >=4.80 ng/mL IRON+TIBC Result Value Ref Range Iron 78 30 - 160 mcg/dL Transferrin 271 200 - 360 mg/dL Transferrin Saturation 21 20 - 50 % TIBC 379 250 - 400 mcg/dL *Note: Due to a large number of results and/or encounters for the requested time period, some results have not been displayed. A complete set of results can be found in Results Review. Rest seen in EMR [facility] MRI BRAIN ATTN PITUITARY W WO CONTRAST 01/06/2024 CLINICAL HISTORY: G43.719-Chronic migraine without aura, intractable, without status [id number]. COMPARISON: Multiple priors with the latest MRI [...] MD Performing Provider Shaylee Roque???LOUIE Restrepo CRNA, RN Manager [employer] Madelyn Sidhu RN Endoscopy Nurse Aliya Friedman [...] anterior left mediastinum versus subclavicular region which areindeterminate and warrant follow-up. Additional left subclavicular focus remains indeterminate and w arrants follow-up. No other evidence of metastatic disease. [...] 09/22/24 2nd opinion at (Dr Beata Kebede consult). Recommended to continue AI + Verzenio 100 mg po bid. If has radiologic or tumor marker progresion, the analysis for ESR1 mutation would be indicated. Taxane myalgias/chronic pain syndrome - much improved, continue expectant follow up and should improve over time, no suspicion for underlying connective tissue disorder. Anti tumor tx: d/w compliance with adjuvant endocrine tx and CDK4/6 inhibitor; importance of Arimidex 1mg po dialy x 10 yrs and Verzenio cell cycle inhibitor Verzenio 100 mg po bid and titrate up to GI tolerance month by month for a total of 24 mo planned to CDK4/6 inhibitor concurrent with AI Hx pituitary tumor, migraines - seen by outside facility Neurosurgeon (Dr Benoit Duke at [facility]) and no need for surgical resection now, [...] Visit - All questions were answered over 22 mins today Disposition - Return in about 4 weeks (around 02/03/2025) for NIVIA OV, LAB APPT, CALL FOR SYMPTOMS, (CBC, CMP, B12, FOLIC ACID, IRON). Please call if any questions about Mrs Cole's care. Tacho Echavarria MD Hematology and Medical Oncology [facility] [phone] *This note was dictated using voice recognition technology and may contain unintended typographicalerrors. Time-Based Billing Statement I spent 40 minutes in the care of this patient on this calendar day. Activities performed during this time include: Reviewing labs, Obtaining or reviewing history (separately obtained), Performing the appropriate exam, Counseling and educating, Ordering medications, Ordering tests, Documenting clinical informationin the EHR, and Care coordination The total time documented above did not include the following activities which were also performed on this calendar day: d/w Manager Hvac about her care and symptom burden/depression documented in this encounter Plan of Treatment Upcoming Encounters Date Type Department Care Team (Late st Contact Info) Description 03/02/2025 11:40 AM EDT Office Visit [facility] [place] [facility] [address] [place] [address] [place] [address] [place] [phone] 03/02/2025 12:45 PM EDT Procedure visit [facility] [address] [place] [address] Samm Ledesma, METAL FILER [address] [place] [address] 03/10/2025 12:30 PM EDT Appointment [facility] [place], [place] [phone] 03/10/2025 1:00 PM EDT Appointment [facility] [place] [address] Tacho Echavarria MD [address] [place] [phone] 04/29/2025 9:15 AM EDT Appointment [facility] [place] [place] [address] Batool Celis MD [address] [place] [address] [place] [address] 05/19/2025 2:15 PM EST Office Visit [facility] [address] [place] [address] Sin Tran MD [address] [place] [address] 08/12/2025 10:40 AM EST Appointment [facility] [place] [address] Matt Ulrich MD [address] [place] [address] [place] [address] documented as of this encounter Goals Goal Patient Goal Type Associated Problems Recent Progress Patient-Stated? Author Blood Pressure < 140/90 Blood Pressure 121/77(02/04 2:04 PM EDT) No Chetna Cedeno MD Breast [facility] Breast Health On track(2024 11:27 AM EDT) No Jasmin Porter, RAUL Note: Patient acknowledges understanding of new diagnosis, plan of care, available resources and how to contact Nurse Navigator with any future questions or concerns. Breast [facility] Breast Health Not on track(2024 11:27 AM EDT) No Jasmin Porter, RN Note: Patient will be compliant with monthly SBE and is aware of who to contact for any unusual or concerning findings. Maintain a healthy diet, exercise regularly and maintain an ideal body weight General No Sanam Julio MA documented as of this encounter Procedures Procedure Name Priority Date/Time Associated Diagnosis Comments IRON+TIBC Routine 01/06/2025 1:13 PM EDT 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) MISCELLANEOUS LAB Routine 01/06/2025 1:1 3 PM EDT 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) Acquired lymphedema Invasive ductal carcinoma of breast, female, right (HCC) Malignant neoplasm of right female breast, unspecified estrogen receptor status, unspecified site of breast (HCC) Anxiety about treatment Reactive depression Myalgia, unspecified site MISCELLANEOUS LAB Routine 01/06/2025 1:1 3 PM EDT 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) Acquired lymphedema Encounter for monitoring aromatase inhibitor therapy Invasive ductal carcinoma of breast, female, right (HCC) Malignant neoplasm of right female breast, unspecified estrogen receptor status, unspecified site of breast (HCC) VITAMIN B12/ FOLIC ACID Routine 01/06/2025 1:13 PM EDT 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) CBC WITH DIFF STAT 01/06/2025 1:13 PM EDT 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) COMPREHENSIVE METABOLIC PANEL STAT 01/06/2025 1:13 PM EDT 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) documented in this encounter Results * MISCELLANEOUS LAB (01/06/2025 1:13 PM EDT) MISC COMMENT [place] 01/07/2025 7:35 AM EDT [facility] Blood VENOUS STRUCTURE / Unknown Port / Unknown 01/06/2025 1:13 PM EDT 01/07/2025 7:31 AM EDT us Tacho Echavarria MD HEMATOLOGY ORDERABLES Final Result Performing Organization Address [facility]/ZIP Co de Phone Number [facility] [address] [place] [address] * IRON+TIBC (01/06/2025 1:13 PM EDT) Pathologist [facility] Iron 78 30 - 160 mcg/dL 01/06/2025 3:19 PM EDT [facility] Transferrin 271 200 - 360 mg/dL 01/06/2025 3:19 PM EDT [facility] Transferrin Saturation 21 20 - 50 % 01/06/2025 3:19 PM EDT [facility] TIBC 379 250 - 400 mcg/dL 01/06/2025 3:19 PM EDT [facility] Blood VENOUS STRUCTURE / Unknown Port / Unknown 01/06/2025 1:13 PM EDT 01/06/2025 1:17 PM EDT us Tacho Echavarria MD CHEMISTRY ORDERABLES Final Result Performing Organization Address City/[facility]/ZIP Co de Phone Number [facility] [address] [facility], [place] [address] * VITAMIN B12/ FOLIC ACID (01/06/2025 1:13 PM EDT) Vitamin B12 305 232 - 1,245 pg/mL 01/06/2025 2:55 PM EDT [facility] [employer] [facility] Folate 15.80 >=4.80 ng/mL 01/06/2025 2:55 PM EDT [facility] [employer] [facility] Blood VENOUS STRUCTURE / Unknown Port / Unknown 01/06/2025 1:13 PM EDT 01/06/2025 1:17 PM EDT Narrative [facility] - 01/06/2025 2:55 PM EDT Ingestion of haroon doses of biotin (>5 mg/day) taken within 8 hours of drawing blood sample can interfere with this immunoassay test. Critical access hospital Radha Echavarria MD CHEMISTRY ORDERABLES Final Result [facility] [address] [facility] , [place] [address] * (ABNORMAL) COMPREHENSIVE METABOLIC PANEL (01/06/2025 1:13 PM EDT) Sodium 140 136 - 145 mmol/L 01/06/2025 1:37 PM EDT [facility] Potassium 3.8 3.5 - 5.0 mmol/L 01/06/2025 1:37 PM EDT [facility] Chloride 108(H) 98 - 107 mmol/L 01/06/2025 1:37 PM EDT [facility] Total CO2 22 22 - 29 mmol/L 01/06/2025 1:37 PM EDT [facility] Anion Gap 10 7 - 16 mmol/L 01/06/2025 1:37 PM EDT [facility] Calcium 9.2 8.6 - 10.4 mg/dL 01/06/2025 1:37 PM EDT [facility] Glucose Lvl 121(H) 70 - 99 mg/dL 01/06/2025 1:37 PM EDT [facility] BUN 16 6 - 20 mg/dL 01/06/2025 1:37 PM EDT [facility] Creatinine 0.83 0.51 - 1.30 mg/dL 01/06/2025 1:37 PM EDT [facility] Albumin 4.0 3.5 - 5.2 gm/dL 01/06/2025 1:37 PM EDT [facility] Total Protein 6.6 6.4 - 8.3 gm/dL 01/06/2025 1:37 PM EDT [facility] Bili Total 0.4 0.2 - 1.3 mg/dL 01/06/2025 1:37 PM EDT [facility] ALT 9 <=41 U/L 01/06/2025 1:37 PM EDT [facility] AST 14 <=40 U/L 01/06/2025 1:37 PM EDT [facility] Alk Phos 127(H) 36 - 123 U/L 01/06/2025 1:37 PM EDT [facility] eGFR (CKD-EPIcr 2020) 82 >=60 mL/min/1.7 3 m2 01/06/2025 1:37 PM EDT [facility] Comment:Estimated GFR was ca lculated using the CKD-EPIcr (2020) equation refit without race. The equation is recommended by the National Kidney Foundation - [place] [employer] of Nephrology Task Force. Blood VENOUS STRUCTURE / Unknown Port / Unknown 01/06/2025 1:13 PM EDT 01/06/2025 1:17 PM EDT Tacho Echavarria MD CHEMISTRY ORDERABLES Final Result [facility] [address] [place] [address] * (ABNORMAL) CBC WITH DIFF (01/06/2025 1:13 PM EDT) WBC 5.1 3.7 - 10.3 x10(3)/mc L 01/06/2025 1:22 PM EDT [facility] RBC 3.61(L) 3.90 - 5.20 x10(6)/mc L 01/06/2025 1:22 PM EDT [facility] Hgb 11.0(L) 11.2 - 15.7 g/dL 01/06/2025 1:22 PM EDT [facility] Hct 33.2(L) 34.0 - 45.0 % 01/06/2025 1:22 PM EDT [facility] MCV 92.0 80.0 - 100.0 fL 01/06/2025 1:22 PM EDT [facility] MCH 30.5 26.0 - 34.0 pg 01/06/2025 1:22 PM EDT [facility] MCHC 33.1 30.7 - 35.5 g/dL 01/06/2025 1:22 PM EDT [facility] RDW 14.5 <=14.9 % 01/06/2025 1:22 PM EDT [facility] Platelet 170 155 - 369 x10(3)/mc L 01/06/2025 1:22 PM EDT [facility] MPV 8.8 8.8 - 12.5 fL 01/06/2025 1:22 PM EDT [facility] Neut # Prelim 3.3 1.6 - 6.1 x10(3)/mc L 01/06/2025 1:22 PM EDT [facility] Comment:Preliminary automate d absolute neutrophil count. Value may change if manual differential is indicated. Neut Percent 65.2 % 01/06/2025 1:22 PM EDT [facility] Comment:Neutrophils equals s egs plus bands Imm Gran% 0.2 % 01/06/2025 1:22 PM EDT [facility] Comment:Automated count of m etamyelocytes, myelocytes and promyelocytes. Lymph Percent 28.1 % 01/06/2025 1:22 PM EDT [facility] Lea Percent 4.3 % 01/06/2025 1:22 PM EDT [facility] Eos Percent 1.8 % 01/06/2025 1:22 PM EDT [facility] Baso Percent 0.4 % 01/06/2025 1:22 PM EDT [facility] Neut # 3.3 1.6 - 6.1 x10(3)/mc L 01/06/2025 1:22 PM EDT [facility] Comment:Neutrophils equals s egs plus bands IMMGRAN# 0.0 0.0 - 0.1 x10(3)/mc L 01/06/2025 1:22 PM EDT [facility] Comment:Automated count of m etamyelocytes, myelocytes and promyelocytes. An absolute IG <0.1 is reported as 0.0. Lymph # 1.4 1.2 - 3.9 x10(3)/mc L 01/06/2025 1:22 PM EDT [facility] Lea # 0.2(L) 0.3 - 0.9 x10(3)/mc L 01/06/2025 1:22 PM EDT [facility] Eos# 0.1 0.0 - 0.5 x10(3)/mc L 01/06/2025 1:22 PM EDT [facility] Baso # 0.0 0.0 - 0.1 x10(3)/mc L 01/06/2025 1:22 PM EDT [facility] Blood VENOUS STRUCTURE / Unknown Port / Unknown 01/06/2025 1:13 PM EDT 01/06/2025 1:17 PM EDT us Tacho Echavarria MD HEMATOLOGY ORDERABLES Final Result [facility] [address] [place] [address] * MISCELLANEOUS LAB (01/06/2025 1:13 PM EDT) Pathologist [facility] COMMENT Tiago 01/07/2025 7:34 AM EDT [facility] Blood VENOUS STRUCTURE / Unknown Port / Unknown 01/06/2025 1:13 PM EDT 01/07/2025 7:31 AM EDT us Tacho Echavarria MD HEMATOLOGY ORDERABLES Final Result Performing Organization Address City/[facility]/ZIP Co de Phone Number [facility] [address] [place] [address] documented in this encounter Visit Diagnoses Diagnosis Invasive ductal carcinoma of breast, female, right (HCC) 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) Malignant neoplasm of right female breast, unspecified estrogen receptor status, unspecified site of breast (HCC) Port-A-Cath in place Other postprocedural status Encounter for antineoplastic chemotherapy Encounter for antineoplastic immunotherapy Diarrhea, unspecified type Chemotherapy-induced nausea Nausea alone Encounter for monitoring aromatase inhibitor therapy Encounter for therapeutic drug monitoring Anxiety about treatment Acquired lymphedema Other lymphedema Reactive depression Dysthymic disorder Myalgia, unspecified site documented in this encounter Additional Health Concerns Assessment Noted Time PHQ-9 Depression Total Score: 17 024 8:39 AM EST PHQ-2 Depression Total Score: 5 07/07/20 24 8:39 AM EST documented as of this encounter Care Teams Conditioner Tumbler Operator Relationship Specialty [place] [address] [place] [address] PCP - General 06/21/10 Arlyn Schmidt MD [facility] [place] [address] Consulting Physician Internal Medicine-Endocrinology, Diabetes & Metabolism 11/28/20 Tacho Echavarria MD [address] [place] [address] Internal Medicine-Medical Oncology 11/12/23 Matt Ulrich MD [address] [place] [address] Surgery-Surgical Oncology 12/04/23 Eze Brock Pastoral Care 12/13/23 Annette Walker MSW Paramedical Aide 05/13/24 Batool Celis MD [address] [place] [address] [place] [address] Radiation Oncologist Radiology-Radiation Oncology 06/08/24 documented as of this encounter
--- OUTSIDE RECORDS SUMMARY | 2025-01-13 14:56 | XMS_ITS | Encounter Summary ---
Author Organization [facility] [address] Care Team Providers Care Process Safety Engineer Name Role Phone Chetna Cedeno MD Primary Care Provider [phone] Arlyn Schmidt MD Unavailable [phone] Tacho Echavarria MD Unavailable [phone] Matt Ulrich MD Unavailable [phone] Eze Brock Unavailable Annette Walker Unavailable [phone] Batool Celis MD Unavailable [phone] Reason for Visit * Physical Therapy (Emergency) - Closed Specialty Diagnoses / Procedures Referred By Contac t Referred To Contact Physical Therapy Diagnoses 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) Chemotherapy follow-up examination Malignant neoplasm of right female breast, unspecified estrogen receptor status, unspecified site of breast (HCC) Port-A-Cath in place Tacho Echavarria MD 1 [place] [address] Phone: tel: fax: Shaunna Workman PT Referral ID Status Reason Start Date Expiration Date V isits Requested Visits Authorized [id number] Closed Specialty Services Required 10/08/2024 01/28/202507 31 Encounter Details Date Type Department Care Team (Latest Contact Info) Description 01/13/2025 2:56 PM EDT - 01/13/2025 11:59 PM EDT Hospital Encounter [facility] Physical Therapy [address] [place] [address] Shaunna Workman PT Discharge Disposition: Home or [...] doctor or pharmacy? Never 11/07/2023 [facility] Utilities Answer Date Recorded In the [...] often do you attend chur ch or spiritism services? 1 to 4 times per year 11/07/2023 Do you belong to any clubs o r organizations such as sabianist groups, unions, fraternal or athletic groups, or [...] Date Recorded PHQ-2 Total Score 5 07/07/2024 [facility] [place] of Occupat ional Health - Occupational Stress [...] any time in the past 12 m [facility], were you homeless or living in a [facility] (including now)? No 11/07/2023 [facility] IP Transportation Answer D ate Recorded In [...] 4 fluticasone propionate (FLONASE) 50 mcg/actuation Nasl [place], Suspension 1 [place] by Nasal route daily. 1 Each 11 [...] (HCC) Port-A-Cath in place Restrictions/Precautions: has Katherine briones jules that she is attending 01/02/25 and would like to be able to walk with no AD by then, [place] MS (but pt states that she was told this may have been a misdiagnosis), currently taking chemo pill, R mastectomy Jun 2024, radiation ended 09/25/24, chronic back issues with sciatica Physician: Jericho ESCOBAR Follow Up: 11/11/24 Evaluation Date: 10/30/24 Reassessment Due: 12/26/24 [facility] [id number] [facility] Secondary Insurance: n/a Insurance Authorization: AMB REFERRAL TO PHYSICAL THERAPY Authorized (10/08/2024-01/28/2025) Visits Requested Visits Authorized Visits Completed Visits Scheduled -- Details Referral ID: [id number] Authorization Status Reason: Received Carrier Authorization Authorization Comments: -- Referred To: Shaunna Workman PT at [facility] PT Referred By: Tacho Echavarria MD at [facility], [facility] Creation Date: 10/08/2024 Referral Reasons: Specialty Services [...] other week Needs Assistance: No Understood: Yes prisoner classification interviewer // bars with unilat UE support [] high marches x10B [] hamstring curls x10B prisoner classification interviewer // bars with B UE support [] [...] deficits. pt verbalized understanding of this again. prisoner classification interviewer // bars with unilat UE support [] [...] arm swing during gait [] NMR education prisoner classification interviewer // bars with no support with gait [...] up about 2 days ago. Access Code: [email or web address] URL: [email or web address] Date: 11/11/2024 Prepared by: Romana Bowman Exercises [...] will be Independent with HEP to improve correction health and reduce risk for injury. indbut [...] increase from 727 feet with RW to 3234-0089 feet with LRAD to improve gait elisha [...] away. Treatments to consist of Therapeutic exercise 61234, Neuromuscular re-education 72032, Manual soft tissue and/or joint mobilization 47080, Patient education, Therapeutic activity 11885, and Gait training 02524. Electronically signed by: Signed: Shaunna Workman PT Date: 01/13/2025 documented in this encounter Plan of Treatment Upcoming Encounters Date Type Department Care Team (Late st Contact Info) Description 03/02/2025 11:40 AM EDT Office Visit [facility] [address] [place] [address] [place] [address] [place] [address] 03/02/2025 12:45 PM EDT Procedure visit [facility] [address] [place] [address] Samm Ledesma APRN [address] [place] [address] 03/10/2025 12:30 PM EDT Appointment [facility] [place] [address] 03/10/2025 1:00 PM EDT Appointment [facility] [place] [address] Tacho Echavarria MD [address] [place] [address] [id number] 04/29/2025 9:15 AM EDT Appointment [facility] RAD ONC [place], [place] [phone] Batool Celis MD [address] [place] [address] [place] [address] 05/19/2025 2:15 PM EST Office Visit [address] [address] Sin Tran MD [address] [place] [address] 08/12/2025 10:40 AM EST Appointment [facility] [place] [address] Matt Ulrich MD [address] [place], [place] [phone] documented as of this encounter Goals Goal [...] documented as of this encounter Care Teams Process Safety Engineer Relationship Specialty [place] [address] [place] [address] PCP - General 06/21/10 Arlyn Schmidt MD [address] [place] [address] Consulting Physician Internal Medicine-Endocrinology, Diabetes & Metabolism 11/28/20 Tacho Echavarria MD 1 [place], [place] [phone] Internal Medicine-Medical Oncology 11/12/23 Matt Ulrich MD 1 [place], [place] [phone] Surgery-Surgical Oncology 12/04/23 Eze Brock Pastoral Care 12/13/23 Annette Walker MSW Eating Disorder Psychologist 05/13/24 Batool Celis MD 1 [facility] [place] [address] Radiation Oncologist Radiology-Radiation Oncology 06/08/24 documented as of this encounter
--- OUTSIDE RECORDS SUMMARY | 2025-01-15 11:55 | XMS_ITS | Encounter Summary ---
Author [place] [address] Care Team Providers Care Gerentological Physiotherapist Name Role Phone Chetna Cedeno MD Primary Care Provider [phone] Arlyn Schmidt MD Unavailable [phone] Tacho Echavarria MD Unavailable [phone] Matt Ulrich MD Unavailable [phone] Eze Brock Unavailable Annette Walker Unavailable [phone] Batool Celis MD Unavailable [phone] Reason for Visit * Physical Therapy (Routine) - Closed Specialty Diagnoses / Procedures Referred By Contac t Referred To Contact Physical Therapy Diagnoses Invasive ductal carcinoma of breast, female, right (HCC) Acquired lymphedema Matt Ulrich MD [address] [place] [address] Phone: tel: fax: Kylah Lawler PT Referral ID Status Reason Start Date Expiration Date V isits Requested Visits Authorized [id number] Closed Specialty Services Required 09/04/2024 01/18/2025 1 20 Encounter Details Date Type Department Care Team (Latest Contact Info) Description 01/15/2025 11:55 AM EDT - 01/15/2025 1:14 PM EDT Hospital Encounter [facility] Physical Therapy [address] [place] [address] Kylah Lawler, PT Discharge Disposition: Home or [...] from your doctor or pharmacy? Never 11/07/2023 [facility] Utilities Answer Date Recorded In the [...] Date Recorded PHQ-2 Total Score 5 07/07/2024 [facility] Delight of Occupat ional Health - Occupational Stress [...] in the [facility] 12 m [facility], were you homeless or living in a mcfp (including now)? No 11/07/2023 [facility] IP Transportation Answer D ate Recorded In [...] 4 fluticasone propionate (FLONASE) 50 mcg/actuation Nasl [place], Suspension 1 [place] by Nasal route daily. 1 Each 11 [...] Cole : 1965 Visit # / Insurance: ([employer] ELIG EV, 20 VISITS, , ANTHEM IS SHOWING NOT ELIGIBLE AND [employer] IS SHOWING ANTHEM PRIMARY. PATIENT NEEDS TO GET THIS RESOLVED, [employer] Auth [id number] Visits 09/25/24-10/25/24, [employer] Auth [id number] Date Ext 09/25/24-11/24/24 [employer] Auth [id number] DATE extended to 01/18) Onset Date: 08/08/24 [...] progression H/o issued Independent Independent Independent Met Magnetic Tape Winder Goals: (set for 6 weeks) Patient will demonstrate independence with compression application to decrease lymphedema progression Reviewed with pt Independent Independent Independent Met Patient will be independent with self MLD to decrease lymphedema progression H/o issued, referral to [facility] for home pump Independent as able, waiting [...] AM EDT Office Visit [facility] [place] [facility] [address] [place] [address] [place] [address] [place] [address] 03/02/2025 12:45 PM EDT Procedure visit [facility] [address] [place] [address] Samm Ledesma, MANAGER OF CORPORATE COMMUNICATIONS [address] [place] [address] 03/10/2025 12:30 PM EDT Appointment [facility] [place], [place] [id number] 03/10/2025 1:00 PM EDT [facility]ointment [facility] [place], [place] [address] Tacho Echavarria MD [address] [place] [id number] 04/29/2025 9:15 AM EDT Appointment [facility] [place] [address] Batool Celis MD [address] [place] [address] CANCER CARE [place], [place] [id number] 05/19/2025 2:15 PM EST Office Visit [facility] [address] [facility] [address] [place] [address] Sin Tran MD [address] [place] [address] 08/12/2025 10:40 AM EST Appointment [facility] Women's Wellness [facility] [place] [address] Matt Ulrich MD [address] [place] [address] [address] [place] [address] documented as of this encounter Goals Goal [...] documented as of this encounter Care Teams Gerentological Physiotherapist Relationship Specialty [place] [address] [place] [address] PCP - General 06/21/10 Arlyn Schmidt MD [address] [place] [address] Consulting Physician Internal Medicine-Endocrinology, Diabetes & Metabolism 11/28/20 Tacho Echavarria MD 1 [place] [address] Internal Medicine-Medical Oncology 11/12/23 Matt Ulrich MD [address] [facility] [place] [address] Surgery-Surgical Oncology 12/04/23 Eze Brock Pastoral Care 12/13/23 Annette Walker, [place] [facility] Site Supervisor 05/13/24 Batool Celis MD [address] [facility] [place] [address] Radiation Oncologist Radiology-Radiation Oncology 06/08/24 documented as of this encounter
--- OUTSIDE RECORDS SUMMARY | 2025-01-15 13:15 | XMS_ITS | Encounter Summary ---
Author Organization [place] [address] Care Team Providers Care Job Setter Name Role Phone Chetna Cedeno MD Primary Care Provider [phone] Arlyn Schmidt MD Unavailable [phone] Tacho Echavarria MD Unavailable [phone] Matt Ulrich MD Unavailable [phone] Eze Brock Unavailable Annette Walker Unavailable [phone] Batool Celis MD Unavailable [phone] Encounter Details Date Type Department Care Team (Latest Contact Info) Description 01/15/2025 1:15 PM EDT - 01/15/2025 1:29 PM EDT Hospital Encounter [facility] [place], [place] [id number] Tacho Echavarria MD [address] [place] [address] [phone] Invasive ductal carcinoma of breast, female, right [...] from your doctor or pharmacy? Never 11/07/2023 [facility] Utilities Answer Date Recorded In the [...] often do you attend chur ch or jewish services? 1 to 4 times per year 11/07/2023 Do you belong to any clubs o r organizations such as scientologist groups, unions, fraternal or athletic groups, or [...] Date Recorded PHQ-2 Total Score 5 07/07/2024 [facility]at ional [facility] - [...] were you homeless or living in a group home (including now)? No 11/07/2023 [facility] IP Transportation Answer D ate Recorded In [...] times daily. for abdominal cramps 30 Capsule 10/01/202 4 DULoxetine (CYMBALTA) 30 mg Oral Capsule, Delayed Release(E.C.)Shalini cations:Reactive depression Take 1 Capsule by mouth daily. 30 Capsule 1 01/15/2025 2:53 PM EDT 5 fluticasone furoate-vilantero L (BREO ELLIPTA) 200-25 mcg/dose Inhl Disk with DeviceIndications :Mild intermittent asthma, unspecified whether complicated Inhale 1 Puff into the lungs daily. 1 Each 6 4 fluticasone propionate (FLONASE) 50 mcg/actuation Nasl [place], Suspension 1 [place] by Nasal route daily. 1 Each 11 [...] 11:40 AM EDT Office Visit [facility] [address] [address] [place] [address] [place] [address] 03/02/2025 12:45 PM EDT Procedure visit [facility] [address] [facility] [address] [place] [address] Samm Ledesma APRN [address] [facility] [address] [place] [address] 03/10/2025 12:30 PM EDT Appointment [facility] [place], [place] [id number] 03/10/2025 1:00 PM EDT Appointment [facility] Oncology [place], [place] [phone] Tacho Echavarria MD [address] [place] [address] [phone] 04/29/2025 9:15 AM EDT Appointment [facility] [place] [address] Batool Celis MD [address] [place] [address] [place] [address] 05/19/2025 2:15 PM EST Office Visit [facility] [address] [place] [address] [address] [place] [address] Sin Tran MD [address] [place] [address] 08/12/2025 10:40 AM EST Appointment [facility] Women's Wellness [facility] [place] [phone] Matt Ulrich MD [address] [place] [address] [address] [place] [address] documented as of this encounter [...] - 145 mmol/L 01/15/2025 2:05 PM EDT [facility] Potassium 4.0 3.5 - 5.0 mmol/L 01/15/2025 2:05 PM EDT [facility] Chloride 107 98 - 107 mmol/L 01/15/2025 2:05 PM EDT [facility] Total CO2 25 22 - 29 mmol/L 01/15/2025 2:05 PM EDT [facility] Anion Gap 8 7 - 16 mmol/L 01/15/2025 2:05 PM EDT [facility] Calcium 9.3 8.6 - 10.4 mg/dL 01/15/2025 2:05 PM EDT [facility] Glucose Lvl 88 70 - 99 mg/dL 01/15/2025 2:05 PM EDT [facility] BUN 13 6 - 20 mg/dL 01/15/2025 2:05 PM EDT [facility] Creatinine 0.85 0.51 - 1.30 mg/dL 01/15/2025 2:05 PM EDT [facility] Albumin 4.0 3.5 - 5.2 gm/dL 01/15/2025 2:05 PM EDT [facility] Total Protein 6.7 6.4 - 8.3 gm/dL 01/15/2025 2:05 PM EDT [facility] Bili Total 0.3 0.2 - 1.3 mg/dL 01/15/2025 2:05 PM EDT [facility] ALT 8 <=41 U/L 01/15/2025 2:05 PM EDT [facility] AST 14 <=40 U/L 01/15/2025 2:05 PM EDT [facility] Alk Phos 124(H) 36 - 123 U/L 01/15/2025 2:05 PM EDT [facility] eGFR (CKD-EPIcr 2020) 79 >=60 mL/min/1.7 3 m2 01/15/2025 2:05 PM EDT [facility] Comment:Estimated GFR was ca lculated using the CKD-EPIcr (2020) equation refit without race. The equation is recommended by the National Kidney Foundation - [place] [employer] of Nephrology Task Force. Blood VENOUS BLOOD / Unknown Venipuncture / Unknown 01/15/2025 1:41 PM EDT 01/15/2025 1:44 PM EDT us Heydi Sorensen APRN CHEMISTRY ORDERABLES Final Res ult [facility] 1 [place] [address] * (ABNORMAL) CBC WITH DIFF (01/15/2025 1:41 PM EDT) WBC 4.5 3.7 - 10.3 x10(3)/mc L 01/15/2025 1:49 PM EDT [facility] RBC 3.40(L) 3.90 - 5.20 x10(6)/mc L 01/15/2025 1:49 PM EDT [facility] Hgb 10.3(L) 11.2 - 15.7 g/dL 01/15/2025 1:49 PM EDT [facility] Hct 31.7(L) 34.0 - 45.0 % 01/15/2025 1:49 PM EDT [facility] MCV 93.2 80.0 - 100.0 fL 01/15/2025 1:49 PM EDT [facility] MCH 30.3 26.0 - 34.0 pg 01/15/2025 1:49 PM EDT [facility] MCHC 32.5 30.7 - 35.5 g/dL 01/15/2025 1:49 PM EDT [facility] RDW 14.7 <=14.9 % 01/15/2025 1:49 PM EDT [facility] Platelet 165 155 - 369 x10(3)/mc L 01/15/2025 1:49 PM EDT [facility] MPV 8.4(L) 8.8 - 12.5 fL 01/15/2025 1:49 PM EDT [facility] Neut # Prelim 2.9 1.6 - 6.1 x10(3)/mc L 01/15/2025 1:49 PM EDT [facility] Comment:Preliminary automate d absolute neutrophil count. Value may change if manual differential is indicated. Neut Percent 64.2 % 01/15/2025 1:49 PM EDT [facility] Comment:Neutrophils equals s egs plus bands Imm Gran% 0.2 % 01/15/2025 1:49 PM EDT [facility] Comment:Automated count of m etamyelocytes, myelocytes and promyelocytes. Lymph Percent 28.3 % 01/15/2025 1:49 PM EDT [facility] Gem Percent 5.3 % 01/15/2025 1:49 PM EDT [facility] Eos Percent 1.3 % 01/15/2025 1:49 PM EDT [facility] Baso Percent 0.7 % 01/15/2025 1:49 PM EDT [facility] Neut # 2.9 1.6 - 6.1 x10(3)/mc L 01/15/2025 1:49 PM EDT [facility] Comment:Neutrophils equals s egs plus bands IMMGRAN# 0.0 0.0 - 0.1 x10(3)/mc L 01/15/2025 1:49 PM EDT [facility] Comment:Automated count of m etamyelocytes, myelocytes and promyelocytes. An absolute IG <0.1 is reported as 0.0. Lymph # 1.3 1.2 - 3.9 x10(3)/ L 01/15/2025 1:49 PM EDT [facility] Gem # 0.2(L) 0.3 - 0.9 x10(3)/ L 01/15/2025 1:49 PM EDT [facility] Eos# 0.1 0.0 - 0.5 x10(3)/ L 01/15/2025 1:49 PM EDT [facility] Baso # 0.0 0.0 - 0.1 x10(3)/ L 01/15/2025 1:49 PM EDT [facility] Blood VENOUS BLOOD / Unknown Venipuncture / Unknown 01/15/2025 1:41 PM EDT 01/15/2025 1:44 PM EDT us Heydi Sorensen APRN HEMATOLOGY ORDERABLES Final Re sult [facility] [address] [place] [phone] documented in this encounter Visit Diagnoses Diagnosis [...] documented as of this encounter Care Teams Job Setter Relationship Specialty [place] [address] [place] [address] PCP - General 06/21/10 Arlyn Schmidt MD [address] [place] [address] Consulting Physician Internal Medicine-Endocrinology, Diabetes & Metabolism 11/28/20 Tacho Echavarria MD 1 [place] [address] Internal Medicine-Medical Oncology 11/12/23 Matt Ulrich MD 1 [place], [place] [phone] Surgery-Surgical Oncology 12/04/23 Eze Brock Pastoral Care 12/13/23 Annette Walker, ARACELI Collection Systems Worker 05/13/24 Batool Celis MD 1 [facility] [place] [address] Radiation Oncologist Radiology-Radiation Oncology 06/08/24 documented as of this encounter
--- OUTSIDE RECORDS SUMMARY | 2025-01-15 13:30 | XMS_ITS | Encounter Summary ---
Author Organization 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 Never 11/07/2023 [facility] Utilities Answer Date Recorded In the past 12 months has e [employer], gas, oil, or water [employer] threatened to shut off services in your [...] any clubs o r organizations such as catholic groups, unions, fraternal or athletic groups, or [...] Date Recorded PHQ-2 Total Score 5 07/07/2024 [facility] [place] of Occupat ional Health - Occupational Stress [...] in a detention (including now)? No 11/07/2023 [facility] IP Transportation [...] 4 fluticasone propionate (FLONASE) 50 mcg/actuation Nasl [place], Suspension 1 [place] by Nasal route daily. 1 Each 4 Inhalational Spacing Device (AEROCHAMBER MV) Misc Spacer 1 Each by [facility].(Non-Drug; Combo Route) route as needed. 1 Device [...] 11:40 AM EDT Office Visit [facility] [address] [place] [address] [place] [address] [place] [address] 03/02/2025 12:45 PM EDT Procedure visit [facility] [address] [place] [address] Samm Ledesma, BRAINER [address] [facility] 100 [place] [address] 03/10/2025 12:30 PM EDT Appointment [facility] [place], [place] [phone] 03/10/2025 1:00 PM EDT Appointment [facility] [place] [address] Tacho Echavarria MD [address] [place] [address] [id number] 04/29/2025 9:15 AM EDT Appointment [facility] RAD ONC [place], [place] [phone] Batool Celis MD [address] [place] [address] [place] [address] 05/19/2025 2:15 PM EST Office Visit [facility] [address] [place] [address] Sin Tran MD [address] [place] [address] 08/12/2025 10:40 AM EST Appointment [facility] Women's Wellness [facility] [place] [address] Matt Ulrich MD [address] [place] [address] 254 [place], [place] [phone] documented as of this encounter Goals Goal [...] documented as of this encounter Care Teams Gis Software Developer Relationship Specialty [place] [address] [place] [address] PCP - General 06/21/10 Arlyn Schmidt MD [address] [place] [address] Consulting Physician Internal Medicine-Endocrinology, Diabetes & Metabolism 11/28/20 Tacho Echavarria MD 1 [place] [address] Internal Medicine-Medical Oncology 11/12/23 Matt Ulrich MD 1 [place] [address] Surgery-Surgical Oncology 12/04/23 Eze Brock Pastoral Care 12/13/23 Annette Walker, CRIMINAL RESEARCHER It Assistant 05/13/24 Batool Celis MD 1 [facility] [place] [address] Radiation Oncologist Radiology-Radiation Oncology 06/08/24 documented as of this encounter
--- OUTSIDE RECORDS SUMMARY | 2025-02-02 11:20 | XMS_ITS | Encounter Summary ---
Author Organization [place] [address] Care Team Providers Care Commercial Ocean Clammer Name Role Phone Chetna Cedeno MD Primary Care Provider [phone] Arlyn Schmidt MD Unavailable [phone] Tacho Echavarria MD Unavailable [phone] Matt Ulrich MD Unavailable [phone] Eze Brock Unavailable Annette Walker Unavailable [phone] Batool Celis MD Unavailable [phone] Encounter Details Date Type Department Care Team (Late st Contact Info) Description 02/02/2025 11:20 AM EDT Telemedicine [facility] [address] [facility] [address] [place] [address] Samm Ledesma, AIRPLANE AND ENGINE INSPECTOR [address] [place] [address] Chronic migraine without aura, intractable, with status [...] from your doctor or pharmacy? Never 11/07/2023 [facility] Utilities Answer Date Recorded In the [...] Recorded PHQ-2 Total Score 5 07/07/2024 [facility] - [...] in the past 12 m [facility], were you homeless or living in a long term (including now)? No [facility] IP Transportation Answer D ate Recorded [...] follows with oncology and surgical oncology at [place]. She has had more numbness, tingling, pain [...] elevated potassium, diarrhea in the lungs at [facility]. Allergies: allergy list reviewed and accurate [...] 6 fluticasone propionate (FLONASE) 50 mcg/actuation Nasl [place], Suspension 1 [place] by Nasal route daily. 1 Each 11 [...] level: High school graduate Occupational History Employer: [employer] Tobacco Use Smoking status: Never Passive exposure: [...] true Transportation Needs: No Transportation Needs (07/07/2024) [facility] IP Transportation In the past 12 months, has lack of reliable transportation kept you from medical appointments, meetings, work or from getting things needed for daily living?: No Physical Activity: Insufficiently Active (07/07/2024) Exercise Vital Sign Days of Exercise per Week: 3 days Minutes of Exercise per Session: 40 min Stress: Stress Concern Present (07/07/2024) [place] [facility]ational [facility] - Occupational Stress Questionnaire Feeling of Stress : Rather much Social Connections: Socially Isolated (11/07/2023) Social Connection and Isolation Panel [NHANES] Frequency of Communication with Friends and Family: Once a week Frequency of Social Gatherings with Friends and Family: Once a week Attends Quaker Services: 1 to 4 times per year Active Member of Clubs or Organizations: No Attends Club or Organization Meetings: Never Marital Status: Never Intimate Partner Violence: Not At Risk (11/07/2023) Humiliation, Afraid, Rape, and Kick questionnaire Fear of Current or Ex-Partner: No Emotionally Abused: No Physically Abused: No Sexually Abused: No Housing Stability: No Transportation Needs (02/24/2024) Received from [facility] Yearly Questionnaire Do you need any [...] a video visit does not replace a jxze-di-khvz exam and further service may be necessary. [...] AM EDT Office Visit [facility] [address] [place] [address] [place] [address] [place] [address] 03/02/2025 12:45 PM EDT Procedure visit [facility] [address] [place], [place] [address] Samm Ledesma APRN [address] [place], [place] [id number] 03/10/2025 12:30 PM EDT Appointment [facility] [place], [place] [id number] 03/10/2025 1:00 PM EDT [facility]ment [facility] [place] [address] Tacho Echavarria MD [address] [place] [address] [id number] 04/29/2025 9:15 AM EDT Appointment [place] [address] Batool Celis MD [address] [place] [address] [place] [address] 05/19/2025 2:15 PM EST Office Visit [facility] [place] [address] [facility] [address] [place] [address] Sin Tran MD [facility] [place] [address] 08/12/2025 10:40 AM EST Appointment [facility] Women's Wellness [place] [facility] [place] [id number] Matt Ulrich MD [address] [place] [address] [place] [address] documented as of this encounter Goals Goal Patient Goal Type Associated Problems Recent Progress Patient-Stated? Author Blood Pressure < 140/90 Blood Pressure 121/77(02/04 2:04 PM EDT) No Chetna Cedeno MD Breast [facility] Breast Health On track(2024 11:27 AM EDT) No Jasmin Porter, RAUL Note: Patient acknowledges understanding of new diagnosis, plan of care, available resources and how to contact Nurse Navigator with any future questions or concerns. Breast [facility] Breast Health Not on track(2024 11:27 [...] documented as of this encounter Care Teams Commercial Ocean Clammer Relationship Specialty [place] [address] [place] [id number] PCP - General 06/21/10 Arlyn Schmidt MD [address] [place], [place] [id number] Consulting Physician Internal Medicine-Endocrinology, Diabetes & Metabolism 11/28/20 Tacho Echavarria MD 1 [place] [address] Internal Medicine-Medical Oncology 11/12/23 Matt Ulrich MD 1 [place], [place] [id number] Surgery-Surgical Oncology 12/04/23 Eze Brock Pastoral Care 12/13/23 Annette Walker MSW Steward/Stewardess Third Class 05/13/24 Batool Celis MD 1 [facility] [place] [address] Radiation Oncologist Radiology-Radiation Oncology 06/08/24 documented as of this encounter
--- OUTSIDE RECORDS SUMMARY | 2025-02-04 11:00 | XMS_ITS | Encounter Summary ---
Author Organization [place] [address] Care Team Providers Care Industrial Hygiene Engineer Name Role Phone Chetna Cedeno MD Primary Care Provider [phone] Arlyn Schmidt MD Unavailable [phone] Tacho Echavarria MD Unavailable [phone] Matt Ulrich MD Unavailable [phone] Eze Brock Unavailable Annette Walker Unavailable [phone] Batool Celis MD Unavailable [phone] Reason for Referral * Consultation (Routine) - Pending Review Specialty Diagnoses / Procedures Referred By Contac t Referred To Contact Diagnoses Invasive ductal carcinoma of breast, female, right (HCC) Procedures [place] OFFICE/OUTPATIENT NEW MODERATE MDM 45 MINUTES Naya García PA-C [address] [place] [address] Phone: tel: fax: Referral ID Status Reason Start Date Expiration Date V isits Requested Visits Authorized [id number] Pending Review 02/04/2025 02/04/2026 1 1 Question Answer Patient Status In Treatment - Survivorship visit today/not new diagnosis Reason for referral? Survivorship * Mammography (Routine) - Pending Review Specialty Diagnoses / Procedures Referred By Van butler Referred To Contact Radiology Diagnoses Encounter for screening mammogram for breast cancer Procedures MM MAMMO DIGITAL STEPHANE SCREEN LEFT Naya García PA-C [address] [place] [address] [address] [place] [address] Phone: tel: fax: Referral ID Status Reason Start Date Expiration Date V isits Requested Visits Authorized [id number] Pending Review 02/04/2025 02/04/2027 1 1 Reason for Visit * Reason Comments Follow-up Survivorship Encounter Details Date Type Department Care Team (Latest Contact Info) Description 02/04/2025 11:00 AM EDT - 02/04/2025 1:47 PM EDT Hospital Encounter [facility] [place] [address] Tacho Echavarria MD [address] [place] [address] Naya García PA-C [address] [place] [address] [address] [place] [address] Invasive ductal carcinoma of breast, female, right [...] Date Recorded PHQ-2 Total Score 5 07/07/2024 [facility] - Occupational Stress Questionnaire Answer Date Recorded [...] the past 12 m [facility], were you homeless or living in a nursing home (including now)? No 11/07/2023 [facility] IP Transportation Answer D ate Recorded In [...] 4 fluticasone propionate (FLONASE) 50 mcg/actuation Nasl [place], Suspension 1 [place] by Nasal route daily. 1 Each 11 [...] carcinoma of breast, female, right (HCC) - EUGNEIA by exam - Expected post-surgery and XRT [...] back pain. Family Hx updated. [facility], states had a blood clot in [...] Bra fits ok. She was recently in [facility] and diagnosed with PE. On [...] cancer support group GENETICS/FAMILY HISTORY: Genetics Negative ([employer] Hereditary Cancer 67-gene panel). No new family [...] Invasive ductal carcinoma, grade 3 ER 80%, KS 11%, Her2 negative B. Breast, right, 5:00 Invasive ductal carcinoma grade 3 ER 92%, KS 55%, Her2 negative 11/11/2023 - Consult Initial [...] to GI tolerance for 2 yr planned (Jewell-E regimen) 10/2024 - changed to Aromasin d/t [...] Stage IIIB (cT3, cN3a(f), cM0, G3, ER+, KS+, HER2-) Pathologic Stage ypT3, ypN3a, G3, ER+, KS+, HER2- 02/04/2025 - Other Naya García PA-C [...] Stage IIIB (cT3, cN3a(f), cM0, G3, ER+, KS+, HER2-) - Unsigned - Pathologic stage from 07/06/2024: ypT3, ypN3a, G3, ER+, KS+, HER2- - Unsigned RECENT IMAGING: Right MTX [...] by mouth 3 times daily. for abdominal enbjpe94 Capsule 0 DULoxetine (CYMBALTA) 30 mg Oral [...] 6 fluticasone propionate (FLONASE) 50 mcg/actuation Nasl [place], Suspension 1 [place] by Nasal route daily. 1 Each 11 [...] GASTRECTOMY ; Surgeon: Marcus Perez MD; Location: [facility] MAIN OR; Service: General IR 2 [...] SACRAL SINGLE LVL 08/03/2022 Sin Tran MD [facility] SPINE CTR IMAGING IR PORT PLACEMENT EQUAL OR > 5 YEARS 11/29/2023 IR PORT PLACEMENT EQUAL OR > 5 YEARS 11/29/2023 Joselito Goodwin MD [facility] IR LUMBAR DISC SURGERY 09/11/2012 LUMBAR LAMINECTOMY & DISCECTOMY L4-5 LEFT ; Surgeon: Hetal Borden MD; MASTECTOMY Right 07/06/2024 Right modified radical mastectomy; Surgeon: Matt Ulrich MD; Location: [facility] MAIN OR; Service:General SPINE SURGERY N/A 01/04/2021 PAIN PUMP PERMANENT IMPLANT; Surgeon: Munir Hilton MD; Location: [facility] MAIN OR; Service: Pain Management THORACIC SPINE SURGERY N/A 02/24/2020 SPINAL CORD STIMULATOR IMPLANT; Surgeon: Munir Hilton MD; Location: [facility] MAIN OR; Service: Pain Management TONSILLECTOMY UPPER GASTROINTESTINAL ENDOSCOPY UPPER GASTROINTESTINAL ENDOSCOPY N/A 01/26/2015 ESOPHAGOGASTRODUODENOSCOPY with biopsy and davis dilation; Surgeon: Stone Cronin MD; Location: [facility] ENDOSCOPY; Service: Endoscopy Allergies Allergen Reactions Amoxicillin [...] level: High school graduate Occupational History Employer: [employer] Tobacco Use Smoking status: Never Passive exposure: [...] true Transportation Needs: No Transportation Needs (07/07/2024) [facility] IP Transportation In the past 12 months, has lack of reliable transportation kept you from medical appointments, meetings, work or from getting things needed for daily living?: No Physical Activity: Insufficiently Active (07/07/2024) Exercise Vital Sign Days of Exercise per Week: 3 days Minutes of Exercise per Session: 40 min Stress: Stress Concern Present (07/07/2024) [employer] [place] of Occupational Health - Occupational Stress Questionnaire Feeling of Stress : Rather much Social Connections: Socially Isolated (11/07/2023) Social Connection and Isolation Panel [NHANES] Frequency of Communication with Friends and Family: Once a week Frequency of Social Gatherings with Friends and Family: Once a week Attends Jew Services: 1 to 4 times per year Active Member of Clubs or Organizations: No Attends Club or Organization Meetings: Never Marital Status: Never Intimate Partner Violence: Not At Risk (11/07/2023) Humiliation, Afraid, Rape, and Kick questionnaire Fear of Current or Ex-Partner: No Emotionally Abused: No Physically Abused: No Sexually Abused: No Housing Stability: No Transportation Needs (02/24/2024) Received from [facility] Yearly Questionnaire Do you need [...] of this patient. Naya García PA-C Breast [facility] Total time approx. 50 minutes, including review of notes, puad-rq-barp interaction, and documentation. Reviewed past pathology and [...] to access video: Lymphatic Massage YouTube Video [email or web address] Discuss DEXA scan with medical oncology, your last in our system was on 12/29/20. Breast Health Nurse Contact - Report new changes by calling the Breast Health Nurse Line at [phone]. Please remember the nurse checks voice mail [...] Desiree The number to our Boutique is [phone]. You may call to set up an [...] off all the clothes above your waist. radio communication coordinator front of a mirror in a room [...] circles with your fingers. For the first mor[place], press lightly. Forthe second morongo, press harder. For the third morongo, press even harder. Keep making circles with [...] breast in the same way. Sit or maintenance parts technician the shower or tub. With soapy water [...] 12/10/2008 Document Revised: 11/29/2016 Document Reviewed: 05/13/2016 [employer] Patient Education ?? 2018 [employer] It is best not to drink [...] almonds. Get enough vitamin D - recommend [id number] IU/day Vitamin D is the most essential [...] AM EDT Office Visit [facility] [place] [address] [place] [address] [place] [address] [place] [address] 03/02/2025 12:45 PM EDT Procedure visit [facility] [address] [place] [address] Samm Ledesma APRN [address] [place] [address] 03/10/2025 12:30 PM EDT Appointment [facility] [address] [place], [place] [id number] 03/10/2025 1:00 PM EDT Appointment [facility] [place] [address] Tacho Echavarria MD [address] [place] [address] 04/29/2025 9:15 AM EDT Appointment [facility] [place] [address] Batool Celis MD [address] [place] [address] [place] [address] 05/19/2025 2:15 PM EST Office Visit [address] [address] Sin Tran MD [address] [place] [address] 08/12/2025 10:40 AM EST Appointment [facility] [place] [address] Matt Ulrich MD [address] [place] [address] [address] [place] [id number] Scheduled Orders Name Type Priority Associated Diagnoses [...] any future questions or concerns. Breast [facility] Breast Health Not on track(2024 11:27 AM [...] as of this encounter Care Teams Industrial Hygiene Engineer Relationship Specialty Start [place] [address] [place] [address] PCP - General 06/21/10 Arlyn Schmidt MD [address] [place] [address] Consulting Physician Internal Medicine-Endocrinology, Diabetes & Metabolism 11/28/20 Tacho Echavarria MD [address] [place] [id number] Internal Medicine-Medical Oncology 11/12/23 Matt Ulrich MD [address] [place] [address] Surgery-Surgical Oncology 12/04/23 Eze Brock Pastoral Care 12/13/23 Annette Walker MSW Painter Ski Edge 05/13/24 Batool Celis MD [address] [facility] [place] [address] Radiation Oncologist Radiology-Radiation Oncology 06/08/24 documented as of this encounter
--- OUTSIDE RECORDS SUMMARY | 2025-02-04 13:48 | XMS_ITS | Encounter Summary ---
Author Organization [place] [address] Care Team Providers Care Tester Operator Helper Name Role Phone Chetna Cedeno MD Primary Care Provider [phone] Arlyn Schmidt MD Unavailable [phone] Tacho Echavarria MD Unavailable [phone] Matt Ulrich MD Unavailable [phone] Eze Brock Unavailable Annette Walker Unavailable [phone] Batool Celis MD Unavailable [phone] Encounter Details Date Type Department Care Team (Latest Contact Info) Description 02/04/2025 1:48 PM EDT - 02/04/2025 2:02 PM EDT Hospital Encounter [facility] [place], [place] [phone] Tacho Echavarria MD [address] [place] [address] [phone] Invasive ductal carcinoma of breast, female, right [...] from your doctor or pharmacy? Never 11/07/2023 [facility] Utilities Answer Date Recorded In [...] any clubs o r organizations such as yazdanism groups, unions, fraternal or athletic groups, or [...] Recorded PHQ-2 Total Score 5 07/07/2024 [facility] - Occupational [...] in a retirement (including now)? No 11/07/2023 [facility] IP Transportation Answer D ate [...] 4 fluticasone propionate (FLONASE) 50 mcg/actuation Nasl [place], Suspension 1 [place] by Nasal route daily. 1 Each [...] AM EDT Office Visit [facility] [address] [place] [address] [place] [address] [place] [address] 03/02/2025 12:45 PM EDT Procedure visit [facility] [address] [place] [address] [phone] Samm Ledesma, [employer] [address] [place], [place] [phone] 03/10/2025 12:30 PM EDT Appointment [facility] [place], [place] [phone] 03/10/2025 1:00 PM EDT Appointment [place] [address] Tacho Echavarria MD [address] [place] [address] 04/29/2025 9:15 AM EDT Appointment [place] [address] Batool Celis MD [address] [place] [address] [place] [address] 05/19/2025 2:15 PM EST Office Visit [facility] [address] [address] [address] [place] [address] Sin Tran MD [address] [place] [address] 08/12/2025 10:40 AM EST Appointment [facility] [place] [facility] Emilee ZORAIDA Smith [address] Matt Ulrich MD [address] [place] [address] MUSA ZORAIDA CORREA [address] documented as of this encounter Goals Goal Patient Goal Type Associated Problems Recent Progress Patient-Stated? Author Blood Pressure < 140/90 Blood Pressure 121/77(02/04 2:04 PM EDT) No Chetna Cedeno MD Breast [facility] Breast Health On track(2024 11:27 AM EDT) No Jasmin Porter, RAUL Note: Patient acknowledges understanding of new diagnosis, plan of care, available resources and how to contact Nurse Navigator with any future questions or concerns. Breast [facility] Breast Health Not on track(2024 11:27 AM EDT) No Jasmin Porter, RAUL Note: Patient will be compliant with monthly SBE and is aware of who to contact for any unusual or concerning findings. Breast [facility] Breast Health On track(2024 11:27 AM [...] B12/ FOLIC ACID (02/04/2025 2:03 PM EDT) [facility] Vitamin B12 271 232 - 1,245 pg/mL 02/04/2025 4:31 PM EDT [facility] [employer] [facility] Folate 6.16 >=4.80 ng/mL 02/04/2025 4:31 PM EDT [facility] [employer] [facility] Blood VENOUS BLOOD / Unknown Venipuncture / Unknown 02/04/2025 2:03 PM EDT 02/04/2025 2:03 PM EDT Narrative PREFERRED [employer] [facility] - 02/04/2025 4:31 PM EDT Ingestion of haroon doses of biotin (>5 mg/day) taken within 8 hours of drawing blood sample can interfere with this immunoassay test. [facility] Radha Echavarria MD CHEMISTRY ORDERABLES Final Result [facility] [employer] [facility] [address] [facility] , [place] [address] * (ABNORMAL) CBC WITH DIFF (02/04/2025 2:03 PM EDT) [facility] WBC 8.1 3.7 - 10.3 x10(3)/mc L 02/04/2025 2:07 PM EDT [facility] RBC 2.95(L) 3.90 - 5.20 x10(6)/mc L 02/04/2025 2:07 PM EDT [facility] Hgb 9.4(L) 11.2 - 15.7 g/dL 02/04/2025 2:07 PM EDT [facility] Hct 28.1(L) 34.0 - 45.0 % 02/04/2025 2:07 PM EDT [facility] MCV 95.3 80.0 - 100.0 fL 02/04/2025 2:07 PM EDT [facility] MCH 31.9 26.0 - 34.0 pg 02/04/2025 2:07 PM EDT [facility] MCHC 33.5 30.7 - 35.5 g/dL 02/04/2025 2:07 PM EDT [facility] RDW 15.0(H) <=14.9 % 02/04/2025 2:07 PM EDT [facility] Platelet 163 155 - 369 x10(3)/mc L 02/04/2025 2:07 PM EDT [facility] MPV 8.8 8.8 - 12.5 fL 02/04/2025 2:07 PM EDT [facility] Neut # Prelim 5.6 1.6 - 6.1 x10(3)/mc L 02/04/2025 2:07 PM EDT [facility] Comment:Preliminary automate d absolute neutrophil count. Value may change if manual differential is indicated. Neut Percent 68.4 % 02/04/2025 2:07 PM EDT [facility] Comment:Neutrophils equals s egs plus bands Imm Gran% 0.2 % 02/04/2025 2:07 PM EDT [facility] Comment:Automated count of m etamyelocytes, myelocytes and promyelocytes. Lymph Percent 23.4 % 02/04/2025 2:07 PM EDT [facility] Lake Percent 5.7 % 02/04/2025 2:07 PM EDT [facility] Eos Percent 2.1 % 02/04/2025 2:07 PM EDT [facility] Baso Percent 0.2 % 02/04/2025 2:07 PM EDT [facility] Neut # 5.6 1.6 - 6.1 x10(3)/mc L 02/04/2025 2:07 PM EDT [facility] Comment:Neutrophils equals s egs plus bands IMMGRAN# 0.0 0.0 - 0.1 x10(3)/mc L 02/04/2025 2:07 PM EDT [facility] Comment:Automated count of m etamyelocytes, myelocytes and promyelocytes. An absolute IG <0.1 is reported as 0.0. Lymph # 1.9 1.2 - 3.9 x10(3)/mc L 02/04/2025 2:07 PM EDT [facility] Lake # 0.5 0.3 - 0.9 x10(3)/mc L 02/04/2025 2:07 PM EDT [facility] Eos# 0.2 0.0 - 0.5 x10(3)/mc L 02/04/2025 2:07 PM EDT [facility] Baso # 0.0 0.0 - 0.1 x10(3)/mc L 02/04/2025 2:07 PM EDT [facility] Blood VENOUS BLOOD / Unknown Venipuncture / Unknown 02/04/2025 2:03 PM EDT 02/04/2025 2:03 PM EDT us Tacho Echavarria MD HEMATOLOGY ORDERABLES Final Result Performing Organization Address City/[facility]/ZIP Co de Phone Number [facility] 1 [place] [address] * IRON+TIBC (02/04/2025 2:02 PM EDT) [facility] Iron 82 30 - 160 mcg/dL 02/04/2025 [...] CHEMISTRY ORDERABLES Final Result Performing Organization Address [facility]/ZIP Co de Phone Number [facility] [address] [place] [phone] [facility], [facility] 1 [facility], [address] [place] [phone] * (ABNORMAL) COMPREHENSIVE METABOLIC PANEL (02/04/2025 2:02 PM EDT) [facility] Sodium 142 136 - 145 mmol/L 02/04/2025 2:28 PM EDT [facility] Potassium 3.3(L) 3.5 - 5.0 mmol/L 02/04/2025 2:28 PM EDT [facility] Chloride 108(H) 98 - 107 mmol/L 02/04/2025 2:28 PM EDT [facility] Total CO2 19(L) 22 - 29 mmol/L 02/04/2025 2:28 PM EDT [facility] Anion Gap 15 7 - 16 mmol/L 02/04/2025 2:28 PM EDT [facility] Calcium 8.6 8.6 - 10.4 mg/dL 02/04/2025 2:28 PM EDT [facility] Glucose Lvl 134(H) 70 - 99 mg/dL 02/04/2025 2:28 PM EDT [facility] BUN 12 6 - 20 mg/dL 02/04/2025 2:28 PM EDT [facility] Creatinine 0.78 0.51 - 1.30 mg/dL 02/04/2025 2:28 PM EDT [facility] Albumin 3.8 3.5 - 5.2 gm/dL 02/04/2025 2:28 PM EDT [facility] Total Protein 6.0(L) 6.4 - 8.3 gm/dL 02/04/2025 2:28 PM EDT [facility] Bili Total 0.3 0.2 - 1.3 mg/dL 02/04/2025 2:28 PM EDT [facility] ALT 8 <=41 U/L 02/04/2025 2:28 PM EDT [facility] AST 12 <=40 U/L 02/04/2025 2:28 PM EDT [facility] Alk Phos 95 36 - 123 U/L 02/04/2025 2:28 PM EDT [facility] eGFR (CKD-EPIcr 2020) 88 >=60 mL/min/1.7 3 m2 02/04/2025 2:28 PM EDT [facility] Comment:Estimated GFR was ca lculated using the CKD-EPIcr (2020) equation refit without race. The equation is recommended by the National Kidney Foundation - [place] Society of Nephrology Task Force. Blood VENOUS BLOOD / Unknown Venipuncture / Unknown 02/04/2025 2:02 PM EDT 02/04/2025 2:02 PM EDT Tacho Echavarria MD CHEMISTRY ORDERABLES Final Result [facility] 1 [place] [address] documented in this encounter Visit [...] documented as of this encounter Care Teams Tester Operator Helper Relationship Specialty [place] [address] [place] [address] PCP - General 06/21/10 Arlyn Schmidt MD [address] [place] [address] Consulting Physician Internal Medicine-Endocrinology, Diabetes & Metabolism 11/28/20 Tacho Echavarria MD 1 [place] [address] Internal Medicine-Medical Oncology 11/12/23 Matt Ulrich MD 1 [place] [address] Surgery-Surgical Oncology 12/04/23 Eze Brock Pastoral Care 12/13/23 Annette Walker, [facility] Cable Dispatcher 05/13/24 Batool Celis MD 1 [facility] [place] [address] Radiation Oncologist Radiology-Radiation Oncology 06/08/24 documented as of this encounter
--- OUTSIDE RECORDS SUMMARY | 2025-02-04 14:03 | XMS_ITS | Encounter Summary ---
Author Organization [place] [address] Care Team Providers Care Fiber Machine Tender Name Role Phone Chetna Cedeno MD Primary Care Provider [phone] Arlyn Schmidt MD Unavailable [phone] Tacho Echavarria MD Unavailable [phone] Matt Ulrich MD Unavailable [phone] Eze Brock Unavailable Annette Walker Unavailable [phone] Batool Celis MD Unavailable [phone] Reason for Visit * Reason Comments Follow-up Breast Cancer Encounter Details Date Type Department Care Team (Latest Contact Info) Description 02/04/2025 2:03 PM EDT - 02/04/2025 11:59 PM EDT Hospital Encounter Cancer Care Medical Oncology [place], [place] [id number] Tacho Echavarria MD [address] [place] [address] [phone] Invasive ductal carcinoma of breast, female, right [...] doctor or pharmacy? Never 11/07/2023 [facility] Utilities Answer Date Recorded In [...] Date Recorded PHQ-2 Total Score 5 07/07/2024 [facility] - [...] in the past [address] [facility], were you homeless or living in a skilled nursing (including now)? No 11/07/2023 [facility] IP Transportation Answer D [...] 4 fluticasone propionate (FLONASE) 50 mcg/actuation Nasl [place], Suspension 1 [place] by Nasal route daily. 1 Each 4 [...] were not included. Patient: El Cole CSN: [id number] Date of : 1965 Age: 59 y.o. Date of Service: 02/04/2025 HEMATOLOGY/ONCOLOGY FOLLOW UP VISIT Primary Bread Panner & Oncologist: Tacho Echavarria MD. Patient Care Team: Chetna Cedeno MD as PCP - General Arlyn Schmidt MD as Consulting Physician (Internal Medicine-Endocrinology, Diabetes & Metabolism) Tacho Echavarria MD (Internal Medicine-Medical Oncology) Matt Ulrich MD (Surgery-Surgical Oncology) Eze Brock as Pastoral Care Annette Walker MSW as Data Entry Operator Batool Celis MD as Radiation Oncologist (Radiology-Radiation Oncology) [address] [facility] EVAL: [place], [place]: Dr Cota [place]: [phone] Next of Kin: Daughter Ruthy Man ([phone]) Patient Contact info: [phone] DIAGNOSIS HISTORY DATE OF INITIAL CONSULTATION: 11/14/23; outside 2nd opinion at on 09/23/2024 CURRENT TREATMENT BREAST CA: adjuvant Conway-E regimen: Aromasin 25mg po daily + dose titration up of Abemacyclib (Verzenio) 50mg po bid -> 100 mg po bid, per NCCN guidelines PE (02/02/25, at [facility]) and Prothrombin gene mutation carrier for [...] to GI tolerance for 2 yr planned (Conway-E regimen) 10/2024 - changed to Aromasin d/t [...] CalcPt Dosage Given to Date in Gy 10.25577828 Session Dosage Given in Gy 2.16559328 Reference Point ID LN Boost RP Dosage Given to Date in Gy 10 Session Dosage Given in Gy 1.40876559 Reference Point ID [id number] ISO Dosage Given to Date in Gy 40.44171369 Session Dosage Given in Gy 0.16792471 Plan ID BH Nd Boost Plan Name [...] breast (HCC) 10/14/2023 Migraines MS (multiple sclerosis) ([facility]) Pituitary cyst Prediabetes PTSD (post-traumatic stress disorder) Sleep apnea no cpap Uterine prolapse 06/06/2011 PAST SURGICAL HISTORY Past Surgical History: Procedure Laterality Date APPENDECTOMY BREAST BIOPSY Right 10/25/2023 5:00 and 6:00 CHOLECYSTECTOMY GASTRIC BYPASS SURGERY N/A 05/01/2017 LAPAROSCOPIC SLEEVE GASTRECTOMY ; Surgeon: Marcus Perez MD; Location: [facility] MAIN OR; Service: General IR 2 [...] SACRAL SINGLE LVL 08/03/2022 Sin Tran MD [facility] SPINE CTR IMAGING IR PORT PLACEMENT EQUAL OR > 5 YEARS 11/29/2023 IR PORT PLACEMENT EQUAL OR > 5 YEARS 11/29/2023 Joselito Goodwin MD [facility] IR LUMBAR DISC SURGERY 09/11/2012 LUMBAR LAMINECTOMY & DISCECTOMY L4-5 LEFT ; Surgeon: Hetal Borden MD; MASTECTOMY Right 07/06/2024 Right modified radical mastectomy; Surgeon: Matt Ulrich MD; Location: [facility] MAIN OR; Service:General SPINE SURGERY N/A 01/04/2021 PAIN PUMP PERMANENT IMPLANT; Surgeon: Munir Hilton MD; Location: [facility] MAIN OR; Service: Pain Management THORACIC [...] agent therapy, also reinforced via consult at [facility] [place]. Now being seen post [...] help with use of Cymbalta. [facility] records to oncology clinic there. ECOG PS: [...] Device fluticasone propionate (FLONASE) 50 mcg/actuation Nasl Mil[place], Suspension Inhalational Spacing Device (AEROCHAMBER MV) Misc [...] Gran% 0.2 % Lymph Percent 23.4 % [place] Percent 5.7 % Eos Percent 2.1 % Baso Percent 0.2 % Neut # 5.6 1.6 - 6.1 x10(3)/mcL IMMGRAN# 0.0 0.0 - 0.1 x10(3)/mcL Lymph # 1.9 1.2 - 3.9 x10(3)/mcL [place] # 0.5 0.3 - 0.9 x10(3)/mcL Eos# [...] G43.719-Chronic migraine without aura, intractable, without status [id number]. COMPARISON: Multiple priors with the latest MRI [...] Performing Provider Shaylee Roque???LOUIE Restrepo CRNA, RN Dental Insurance Biller Madelyn Sidhu RN Endoscopy Nurse Aliya Friedman [...] outside facility Neurosurgeon (Dr Benoit Duke at [facility]) and no need for surgical resection now, surveillance plan defined in his note of 02/24/24 noted Chemo induced anemia - as expected, stable cont 1 tab MVI po daily, asked for borderline VIT B12 tostart VIT B12 1000 mcg po daily otc PE/ Prothrombin gene carrier - obtaining records from [facility], meanwhile stay on FDAapproved dosing of [...] Tacho Echavarria MD Hematology and Medical Oncology [facility] [phone] *This note was dictated using voice recognition [...] also performed on this calendar day: d/w .Net Programmer about her care and symptom burden/depression * Rosana Gupta RN - 02/04/2025 2:20 PM EDT Fax sent to Medical Records at [facility] Request for records from most recent hospitalization [...] 11:40 AM EDT Office Visit [facility] [address] [place] [address] [place] [address] [place] [address] 03/02/2025 12:45 PM EDT Procedure visit [facility] [address] [place] [address] Samm Ledesma APRN [address] [place] [address] 03/10/2025 12:30 PM EDT Appointment [place] [address] 03/10/2025 1:00 PM EDT Appointment [facility] [place] [address] Tacho Echavarria MD [address] [place] [address] 04/29/2025 9:15 AM EDT Appointment [place] [address] Batool Celis MD [address] [place] [address] [facility] [place], [place] [id number] 05/19/2025 2:15 PM EST Office Visit [facility] [address] [facility] [facility] [place] [address] Sin Tran MD [facility] [place] [address] 08/12/2025 10:40 AM EST Appointment [facility] [place] [facility] [address] Matt Ulrich MD [address] [facility] [address] [place] [address] documented as of this encounter Goals Goal Patient Goal Type Associated Problems Recent Progress Patient-Stated? Author Blood Pressure < 140/90 Blood Pressure 121/77(02/04 2:04 PM EDT) No Chetna Cedeno MD [facility] Breast Health On track(2024 11:27 AM EDT) No Jasmin Porter, RAUL Note: Patient acknowledges understanding of new diagnosis, plan of care, available resources and how to contact Nurse Navigator with any future questions or concerns. Breast [facility] Breast Health Not on track(2024 11:27 AM EDT) No Jasmin Porter, RAUL Note: Patient will be compliant with monthly SBE and is aware of who to contact for any unusual or concerning findings. Breast [facility] Breast Health On track(2024 11:27 [...] documented as of this encounter Care Teams Fiber Machine Tender Relationship Specialty [place] [address] [place] [address] PCP - General 06/21/10 Arlyn Schmidt MD [address] [place], [place] [id number] Consulting Physician Internal Medicine-Endocrinology, Diabetes & Metabolism 11/28/20 Tacho Echavarria MD 1 [place] [address] Internal Medicine-Medical Oncology 11/12/23 Matt Ulrich MD 1 [place] [address] Surgery-Surgical Oncology 12/04/23 Eze Brock Pastoral Care 12/13/23 Annette Walker MSW Data Entry Operator 05/13/24 Batool Celis MD 1 [facility] [place] [address] Radiation Oncologist Radiology-Radiation Oncology 06/08/24 documented as of this encounter
--- OUTSIDE RECORDS SUMMARY | 2025-02-10 10:30 | XMS_ITS | Encounter Summary ---
Author Organization [place] [address] Care Team Providers Care Metal Moulder'S Assistant Name Role Phone Chetna Cedeno MD Primary Care Provider [phone] Arlyn Schmidt MD Unavailable [phone] Tacho Echavarria MD Unavailable [phone] Matt Ulrich MD Unavailable [phone] Eze Brock Unavailable Annette Walker Unavailable Batool Celis MD Unavailable [phone] Reason for Visit * Reason Comments Follow-up Pump Refill Encounter Details Date Type Department Care Team (Late st Contact Info) Description 02/10/2025 10:30 AM EDT Office Visit [facility] Spine [address] [address] Sin Tran MD [address] [place] [address] Chronic pain syndrome (Primary Dx); Post [...] Score 5 07/07/2024 [facility] - Occupational Stress Questionnaire Answer Date [...] in a snf (including now)? No 11/07/2023 [facility] IP [...] No edema, warmth, erythema, or fluctuance. The Aupix analyzer was used to interrogate the SynchroMed [...] well Sin Tran MD Interventional Pain Management [place] [facility] documented in this encounter Plan of Treatment Upcoming Encounters Date Type Department Care Team (Late st Contact Info) Description 03/02/2025 11:40 AM EDT Office Visit [facility] [address] [place] [address] [place] [address] [place] [id number] 03/02/2025 12:45 PM EDT Procedure visit [facility] 7370 [facility] [address] [place] [address] Samm Ledesma APRN [address] [facility] [address] [place] [address] 03/10/2025 12:30 PM EDT Appointment [place] [address] 03/10/2025 1:00 PM EDT Appointment [facility] [place] [address] Tacho Echavarria MD [address] [place] [address] 04/29/2025 9:15 AM EDT Appointment [facility] [place] [place] [address] Batool Celis MD 1 [facility] [place] [address] 05/19/2025 2:15 PM EST Office Visit [facility] [address] [place] [address] Sin Tran MD [address] [place] [address] [place] [address] 08/12/2025 10:40 AM EST Appointment [facility] Women's Wellness [facility] [place] [phone] Matt Ulrich MD 20 [facility] 254 [place] [address] documented as of this encounter Goals Goal Patient Goal Type Associated Problems Recent Progress Patient-Stated? Author Blood Pressure < 140/90 Blood Pressure 121/77(02/04 2:04 PM EDT) No Chetna Cedeno MD Breast [facility] Breast Health On track(2024 11:27 AM EDT) No Jasmin Porter, RAUL Note: Patient acknowledges understanding of new diagnosis, plan of care, available resources and how to contact Nurse Navigator with any future questions or concerns. Breast [facility] Breast Health Not on track(2024 11:27 AM EDT) No Jasmin Porter, RAUL Note: Patient will be compliant with monthly SBE and is aware of who to contact for any unusual or concerning findings. Breast [facility] Breast Health On track(2024 11:27 AM EDT) [...] documented as of this encounter Care Teams Metal Moulder'S Assistant Relationship Specialty Start [place] [address] [place] [address] PCP - General 06/21/10 Arlyn Schmidt MD [address] [place] [address] Consulting Physician Internal Medicine-Endocrinology, Diabetes & Metabolism 11/28/20 Tacho Echavarria MD 1 [place] [address] Internal Medicine-Medical Oncology 11/12/23 Matt Ulrich MD 1 [place], [place] [id number] Surgery-Surgical Oncology 12/04/23 Eze Brock Pastoral Care 12/13/23 Annette Walker MSW Rn Access 05/13/24 Batool Celis MD 1 [facility] CAN[facility]ER [place], [place] [id number] Radiation Oncologist Radiology-Radiation Oncology 06/08/24 documented as of this encounter
--- OUTSIDE RECORDS SUMMARY | 2025-02-19 12:38 | XMS_ITS | Encounter Summary ---
Author Organization [place] [address] Care Team Providers Care Resistor Tester Name Role Phone Chetna Cedeno MD Primary Care Provider [phone] Arlyn Schmidt MD Unavailable [phone] Tacho Echavarria MD Unavailable [phone] Matt Ulrich MD Unavailable [phone] Eze Brock Unavailable Annette Walker Unavailable [phone] Batool Celis MD Unavailable [phone] Reason for Visit * Reason Onset Date Comments Symptom Call 01/15/2025 shakiness, light headed, cold chills, and breaking out in sweats Encounter Details Date Type Department Care Team (Late st Contact Info) Description 01/15/2025 Telephone [facility] Medical Oncology [place], [place] [id number] Tacho Echavarria MD [address] [place] [id number] Symptom Call (shakiness, light headed, cold [...] your doctor or pharmacy? Never 11/07/2023 [facility] Utilities Answer Date Recorded [...] Date Recorded PHQ-2 Total Score 5 07/07/2024 [facility] [place] of Occupat ional Health - Occupational Stress [...] any time in the past 12 m [facility], were you homeless or living in a jail (including now)? No 11/07/2023 [facility] IP Transportation Answer D ate [...] be seen. Patient scheduled for 1:30 with MEDICAL OPERATIONS SUPERVISOR and 1:15 for labs. * Telephone Encounter - Rianna Grady, Clerical Staff - 01/15/2025 11:00 AM EDT Medical Oncology Clinic Symptom Call: Yes Primary Oncologist: Jreicho Diagnoses: Current Treatment: Last date of Tx: [...] no What Location is the Patient seen at:[facility] Preferred call back number:[phone] Explained to the caller, if this is a medical emergency please call 911 or go to the nearest emergency room. documented in this encounter Plan of Treatment Upcoming Encounters Date Type Department Care Team (Late st Contact Info) Description 03/02/2025 11:40 AM EDT Office [place] [facility] [place] [facility] [address] [place] [address] [place] [address] [place] [address] 03/02/2025 12:45 PM EDT Procedure visit [facility] [address] [place], [place] [id number] Samm Ledesma, MEDICAL OPERATIONS SUPERVISOR [address] [place], [place] [id number] 03/10/2025 12:30 PM EDT Appointment [facility] [place], [place] [id number] 03/10/2025 1:00 PM EDT Appointment [facility] [place], [place] [address] Tacho Echavarria MD [address] [place] [address] [id number] 04/29/2025 9:15 AM EDT Appointment [facility] RAD ONC [place], [place] [phone] Batool Celis MD [address] [place] [address] [facility] [place], [place] [phone] 05/19/2025 2:15 PM EST Office Visit [facility] [address] [place] [address] [address] [place] [address] Sin Tran MD [facility] [place] [address] 08/12/2025 10:40 AM EST Appointment [facility] Women's Wellness [place] [facility] [place] [address] Matt Ulrich MD [address] [place] [address] [place] [address] documented as of this encounter Goals Goal [...] - 145 mmol/L 01/15/2025 2:05 PM EDT [facility] Potassium 4.0 3.5 - 5.0 mmol/L 01/15/2025 2:05 PM EDT [facility] Chloride 107 98 - 107 mmol/L 01/15/2025 2:05 PM EDT [facility] Total CO2 25 22 - 29 mmol/L 01/15/2025 2:05 PM EDT [facility] Anion Gap 8 7 - 16 mmol/L 01/15/2025 2:05 PM EDT [facility] Calcium 9.3 8.6 - 10.4 mg/dL 01/15/2025 2:05 PM EDT [facility] Glucose Lvl 88 70 - 99 mg/dL 01/15/2025 2:05 PM EDT [facility] BUN 13 6 - 20 mg/dL 01/15/2025 2:05 PM EDT [facility] Creatinine 0.85 0.51 - 1.30 mg/dL 01/15/2025 2:05 PM EDT [facility] Albumin 4.0 3.5 - 5.2 gm/dL 01/15/2025 2:05 PM EDT [facility] Total Protein 6.7 6.4 - 8.3 gm/dL 01/15/2025 2:05 PM EDT [facility] Bili Total 0.3 0.2 - 1.3 mg/dL 01/15/2025 2:05 PM EDT [facility] ALT 8 <=41 U/L 01/15/2025 2:05 PM EDT [facility] AST 14 <=40 U/L 01/15/2025 2:05 PM EDT [facility] Alk Phos 124(H) 36 - 123 U/L 01/15/2025 2:05 PM EDT [facility] eGFR (CKD-EPIcr 2020) 79 >=60 mL/min/1.7 3 m2 01/15/2025 2:05 PM EDT [facility] Comment:Estimated GFR was ca lculated using the CKD-EPIcr (2020) equation refit without race. The equation is recommended by the National Kidney Foundation - Indian Society of Nephrology Task Force. Blood VENOUS BLOOD / Unknown Venipuncture / Unknown 01/15/2025 1:41 PM EDT 01/15/2025 1:44 PM EDT us Heydi Sorensen APRN CHEMISTRY ORDERABLES Final Res ult [facility] [address] [place] [address] * (ABNORMAL) CBC WITH DIFF (01/15/2025 1:41 PM EDT) WBC 4.5 3.7 - 10.3 x10(3)/mc L 01/15/2025 1:49 PM EDT [facility] RBC 3.40(L) 3.90 - 5.20 x10(6)/mc L 01/15/2025 1:49 PM EDT [facility] Hgb 10.3(L) 11.2 - 15.7 g/dL 01/15/2025 1:49 PM EDT [facility] Hct 31.7(L) 34.0 - 45.0 % 01/15/2025 1:49 PM EDT [facility] MCV 93.2 80.0 - 100.0 fL 01/15/2025 1:49 PM EDT [facility] MCH 30.3 26.0 - 34.0 pg 01/15/2025 1:49 PM EDT [facility] MCHC 32.5 30.7 - 35.5 g/dL 01/15/2025 1:49 PM EDT [facility] RDW 14.7 <=14.9 % 01/15/2025 1:49 PM EDT [facility] Platelet 165 155 - 369 x10(3)/mc L 01/15/2025 1:49 PM EDT [facility] MPV 8.4(L) 8.8 - 12.5 fL 01/15/2025 1:49 PM EDT [facility] Neut # Prelim 2.9 1.6 - 6.1 x10(3)/mc L 01/15/2025 1:49 PM EDT [facility] Comment:Preliminary automate d absolute neutrophil count. Value may change if manual differential is indicated. Neut Percent 64.2 % 01/15/2025 1:49 PM EDT [facility] Comment:Neutrophils equals s egs plus bands Imm Gran% 0.2 % 01/15/2025 1:49 PM EDT [facility] Comment:Automated count of m etamyelocytes, myelocytes and promyelocytes. Lymph Percent 28.3 % 01/15/2025 1:49 PM EDT [facility] [place] Percent 5.3 % 01/15/2025 1:49 PM EDT [facility] Eos Percent 1.3 % 01/15/2025 1:49 PM EDT [facility] Baso Percent 0.7 % 01/15/2025 1:49 PM EDT [facility] Neut # 2.9 1.6 - 6.1 x10(3)/ L 01/15/2025 1:49 PM EDT [facility] Comment:Neutrophils equals s egs plus bands IMMGRAN# 0.0 0.0 - 0.1 x10(3)/mc L 01/15/2025 1:49 PM EDT [facility] Comment:Automated count of m etamyelocytes, myelocytes and promyelocytes. An absolute IG <0.1 is reported as 0.0. Lymph # 1.3 1.2 - 3.9 x10(3)/ L 01/15/2025 1:49 PM EDT [facility] [place] # 0.2(L) 0.3 - 0.9 x10(3)/ L 01/15/2025 1:49 PM EDT [facility] Eos# 0.1 0.0 - 0.5 x10(3)/ L 01/15/2025 1:49 PM EDT [facility] Baso # 0.0 0.0 - 0.1 x10(3)/ L 01/15/2025 1:49 PM EDT [facility] Blood VENOUS BLOOD / Unknown Venipuncture / Unknown 01/15/2025 1:41 PM EDT 01/15/2025 1:44 PM EDT us Heydi Sorensen MEDICAL OPERATIONS SUPERVISOR HEMATOLOGY ORDERABLES Final Re sult [facility] [address] [place] [id number] documented in this encounter Visit Diagnoses Diagnosis Invasive ductal carcinoma of breast, female, right (HCC)- Primary Cold sweat Lightheaded Dizziness and giddiness Shakiness Abnormal involuntary movements documented in this encounter Additional Health Concerns Assessment Noted Time PHQ-9 Depression Total Score: 17 024 8:39 AM EST PHQ-2 Depression Total Score: 5 07/07/20 24 8:39 AM EST documented as of this encounter Care Teams Resistor Tester Relationship Specialty [place] [address] [place] [address] PCP - General 06/21/10 Arlyn Schmidt MD [address] [place] [address] Consulting Physician Internal Medicine-Endocrinology, Diabetes & Metabolism 11/28/20 Tacho Echavarria MD 1 [place] [address] Internal Medicine-Medical Oncology 11/12/23 Matt Ulrich MD 1 [place] [address] Surgery-Surgical Oncology 12/04/23 Eze Brock Pastoral Care 12/13/23 Annette Walker, CAREGIVER ASSISTED LIVING Green End Department Supervisor 05/13/24 Batool Celis MD 1 [facility] [place] [place] [address] Radiation Oncologist Radiology-Radiation Oncology 06/08/24 documented as of this encounter
--- OUTSIDE RECORDS SUMMARY | 2025-02-19 12:38 | XMS_ITS | Encounter Summary ---
Author Organization [place] [address] Care Team Providers Care Supervisor Finishing Room Name Role Phone Chetna Cedeno MD Primary Care Provider [phone] Arlyn Schmidt MD Unavailable [phone] Tacho Echavarria MD Unavailable [phone] Matt Ulrich MD Unavailable [phone] Eze Brock Unavailable Annette Walker Unavailable [phone] Batool Celis MD Unavailable [phone] Encounter Details Date Type Department Care Team (Late st Contact Info) Description 01/15/2025 Plan of Care Documentation [facility] Physical Therapy [address] [place] [address] Social History Tobacco Use Types [...] from your doctor or pharmacy? Never 11/07/2023 [facility] Utilities Answer Date Recorded In the [...] Date Recorded PHQ-2 Total Score 5 07/07/2024 [facility] of Occupat ional Health - [...] a long term (including now)? No 11/07/2023 [facility] IP Transportation Answer D [...] AM EDT Office Visit [facility] [place] [facility] [address] [place] [address] [place] [address] [place] [address] 03/02/2025 12:45 PM EDT Procedure visit [facility] [address] [place] [address] Samm Ledesma, GERIATRIC NURSING ASSISTANT [address] [place] [address] 03/10/2025 12:30 PM EDT Appointment [facility] [place], [place] [phone] 03/10/2025 1:00 PM EDT Appointment [facility] Medical Oncology [place], [place] 0[address]17 Tacho Echavarria MD [address] [place] [id number] 04/29/2025 9:15 AM EDT Appointment [facility] RAD ONC [place], [place] [phone] Batool Celis MD [address] [place] [address] CANCER CARE [place], [place] [phone] 05/19/2025 2:15 PM EST Office Visit [place] [address] [place] [address] Sin Tran MD [address] [place] [phone] 08/12/2025 10:40 AM EST Appointment [facility] Women's Wellness [place] [facility] [place] [phone] Matt Ulrich MD [address] [place] [address] [place] [address] documented as of this encounter [...] as of this encounter Care Teams Supervisor Finishing Room Relationship Specialty [place] [address] [address] [place] [id number] PCP - General 06/21/10 Arlyn Schmidt MD [address] [place] [address] Consulting Physician Internal Medicine-Endocrinology, Diabetes & Metabolism 11/28/20 Tacho Echavarria MD 1 [place] [phone] Internal Medicine-Medical Oncology 11/12/23 Matt Ulrich MD 1 [place] [phone] Surgery-Surgical Oncology 12/04/23 Eze Brock Pastoral Care 12/13/23 Annette Walker, ARACELI Pouncing Machine Operator 05/13/24 Batool Celis MD 1 [facility] [place] [address] Radiation Oncologist Radiology-Radiation Oncology 06/08/24 documented as of this encounter
--- OUTSIDE RECORDS SUMMARY | 2025-02-19 12:38 | XMS_ITS ---
Author Organization Em[facility] VELIZJude OD Address [facility] [place] [address] Phone Care Team Providers Care Volumetric Weigher Name Role Phone Chetna Cedeno MD Primary Care Provider [phone] Arlyn Schmidt MD Unavailable [phone] Tacho Echavarria MD Unavailable [phone] Matt Ulrich MD Unavailable [phone] Eze Brock Unavailable Annette Walker Unavailable [phone] Batool Celis MD Unavailable [phone] Problems * This document contains information received from the source organization and may not represent a complete record from that organization. Patient Care Coordination No te Formatting of this note migh t be different from the original. [facility] - Sin Tran MD Controlled [...] Functional capacity documented (EVERY VISIT)01/03/2022 Pharmacy: [facility] [address] [address] [facility] [phone] AIS POA: 02/10/2025 josh as expected #[id number] Josh 08-05-2018 adm Josh 08-14-18 adm UDS 08-08-18 adm Care gap audit completed by Medina White RN on 01/01/2022. 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 Care Team Medical Oncologist Dr. Tacho Echavarria Surgeon Dr. Matt Ulrich Radiation Oncologist Dr. Batool Celis Primary Care Physician Chetna Cedeno MD Cancer Diagnosis Information Diagnosis date 10/29/23 Diagnosis and Staging information Invasive Ductal Carcinoma, right breast Clinical Stage IIIB (cT3, cN3a(f), M0, G3, ER+, MT+, Her2-) Pathologic Stage y(pT3, pN3a, G3 ER+, MT+, Her2-) Tumor markers Breast: Estrogen Receptor positive (92%) Progesterone Receptor positive (55%) Her-2 negative Background Information/Additional Screening Recommendations Genetics testing Negative ([facility] Hereditary Cancer 67-gene panel) Tobacco use Nonsmoker. [...] up to GI tolerance for2 yr planned (Viola-E regimen) Radiation therapy External beam radiotherapy to a total dose of 60 Gy; 50 Gy to right chest wall and regional lymph nodes including internal mammary + 10 Gy boost to the undissected nodes. Delivered in a total of 30 fractions Endocrine Therapy Arimidex started 10/08/24 + Verzenio. Changed to Aromasin give [facility] Oncology Timeline Oncology History Invasive ductal carcinoma of breast, female, right (HCC) 10/29/2023 Initial Diagnosis Invasive ductal carcinoma of right breast, grade 3 A. Breast, right, 6:00, Invasive ductal carcinoma, grade 3 ER 80%, MT 11%, Her2 negative B. Breast, right, 5:00 Invasive ductal carcinoma grade 3 ER 92%, MT 55%, Her2 negative 11/11/2023 - Consult Initial [...] to GI tolerance for 2 yr planned (Viola-E regimen) 10/2024 - changed to Aromasin d/t [...] Stage IIIB (cT3, cN3a(f), cM0, G3, ER+, MT+, HER2-) Pathologic Stage ypT3, ypN3a, G3, ER+, MT+, HER2- Right breast cancer with T3 tumor, [...] General Health Continue follow-up with PCP and PROJECTOR BOOTH OPERATOR as directed Recommendations Self-care plan: What you [...] with your body,see your regular doctor, physician plant attendant or assistant operator, or nurse practitioner. If what you are [...] Problem Noted Date Diagnosed Date Resolved Date [place] syndrome 12/30/2020 10/16/2021 Assessment & Plan (12/30/2020 [...]
--- OUTSIDE RECORDS SUMMARY | 2025-02-19 12:38 | XMS_ITS | Encounter Summary ---
Author Organization [place] [address] Care Team Providers Care Ship/Rec/Doc Control Name Role Phone Chetna Cedeno MD Primary Care Provider [phone] Arlyn Schmidt MD Unavailable [phone] Tacho Echavarria MD Unavailable [phone] Matt Ulrich MD Unavailable [phone] Eze Brock Unavailable Annette Walker Unavailable [phone] Batool Celis MD Unavailable [phone] Reason for Visit * Reason Comments Medication Refill Encounter Details Date Type Department Care Team (Late st Contact Info) Description 01/14/2025 Refill [facility] Care Medical Oncology [place], [place] [phone] Tacho Echavarria MD [address] [place] [phone] Medication Refill Social History Tobacco Use Types [...] Date Recorded PHQ-2 Total Score 5 07/07/2024 [facility] of Occupat ional Health - Occupational [...] in a m[facility] (including now)? No 11/07/2023 [facility] IP Transportation Answer [...] 11:40 AM EDT Office Visit [facility] [address] [place] [address] [place] [address] [place] [address] 03/02/2025 12:45 PM EDT Procedure visit [facility] [address] [facility] [address] [place] [address] Samm Ledesma, IN STORE MARKETING ASSOCIATE [address] [facility] [address] [place] [address] 03/10/2025 12:30 PM EDT Appointment [facility] [place], [place] [phone] 03/10/2025 1:00 PM EDT Appointment [facility] [place] [address] Tacho Echavarria MD [address] [place] [phone] 04/29/2025 9:15 AM EDT Appointment [facility] [place] [address] Batool Celis MD [address] [place] [address] 05/19/2025 2:15 PM EST Office Visit [address] [address] Sin Tran MD [address] [place] [address] 08/12/2025 10:40 AM EST Appointment [facility] Women's Wellness [facility] [place] [address] Matt Ulrich MD [address] [place] [address] [address] [place] [address] documented as of this encounter Goals Goal [...] documented as of this encounter Care Teams Ship/Rec/Doc Control Relationship Specialty [place] [address] [place] [phone] PCP - General 06/21/10 Arlyn Schmidt MD [address] [place] [address] Consulting Physician Internal Medicine-Endocrinology, Diabetes & Metabolism 11/28/20 Tacho Echavarria MD 1 [place] [address] Internal Medicine-Medical Oncology 11/12/23 Matt Ulrich MD 1 [place] [address] Surgery-Surgical Oncology 12/04/23 Eze Brock Pastoral Care 12/13/23 Aaron Annette, DELINQUENT ACCOUNT CLERK Mineral Mixer 05/13/24 Batool Celis MD [address] [place] [address] [place] [address] Radiation Oncologist Radiology-Radiation Oncology 06/08/24 documented as of this encounter
--- OUTSIDE RECORDS SUMMARY | 2025-02-19 12:38 | XMS_ITS | Encounter Summary ---
Author Organization [place] [address] Care Team Providers Care Wire Wrapping Machine Operator Name Role Phone Chetna Cedeno MD Primary Care Provider [phone] Arlyn Schmidt MD Unavailable [phone] Tacho Echavarria MD Unavailable [phone] Matt Ulrich MD Unavailable [phone] Eze Brock Unavailable Cheryl Nair RN Unavailable [phone] Annette Walker FAST FOOD SALES ASSISTANT Unavailable [phone] Batool Celis MD Unavailable [phone] Encounter Details Date Type Department Care Team (Late st Contact Info) Description 09/11/2024 Lab Requisition [facility] [place] [address] Beata Kebede MD [address] [place] [address] Social History Tobacco Use Types Packs/Day Years [...] Date Recorded PHQ-2 Total Score 5 07/07/2024 [facility] of Occupat ional Health - [...] in a fdc (including now)? No 11/07/2023 [facility] IP Transportation Answer D ate Recorded [...] AM EDT Office Visit [facility] [address] [place] [address] [place] [address] [place] [address] 03/02/2025 12:45 PM EDT Procedure visit [facility] [address] [place] [address] Samm Ledesma, COUNTY HISTORIAN [address] [place] [address] 03/10/2025 12:30 PM EDT Appointment [facility] [place], [place] [id number] 03/10/2025 1:00 PM EDT Appointment [facility] Care Medical Oncology [place], [place] 957[address]17 Tacho Echavarria MD [address] [place] [address] [id number] 04/29/2025 9:15 AM EDT Appointment [facility] [place] [place] [address] Batool Celis MD [address] [place] [address] [place] [address] 05/19/2025 2:15 PM EST Office Visit [address]D [place] [address] Sin Tran MD [facility] [place] [address] 08/12/2025 10:40 AM EST Appointment [facility] Women's [facility]ness [place] One [facility] [place] [address] Matt Ulrich MD [address] [place] [address] [address] [place] [address] documented as of this encounter Goals Goal Patient Goal Type Associated Problems Recent Progress Patient-Stated? Author Blood Pressure < 140/90 Blood Pressure 121/77(02/04 2:04 PM EDT) No Chetna Cedeno MD Breast [facility] Breast Health On track(2024 11:27 AM EDT) No Jasmin Porter RN Note: Patient acknowledges understanding of new diagnosis, plan of care, available resources and how to contact Nurse Navigator with any future questions or concerns. Breast [facility] Breast Health Not on track(2024 11:27 [...] EST) CASE REPORT Surgical Pathology Report Case: [id number] Authorizing Provider: Beata Kebede MD Collected: 09/11/20243 Ordering Location: [facility] Received: 09/11/20241312 Pathologist: Diane Ellis MD Specimen: Breast, Request for cases [id number], [id number] slides to [facility]. 09/15/2024 12:14 PM EDT [facility] Results will be scanned in this case as an addendum. 09/15/2024 12:14 PM EDT [facility] at 1338 EST EMBEDDED IMAGES 09/15/2024 12:14 PM EDT [facility] ADDENDUM Refer to Scanned Surgical Pathology Report for [id number] & [id number]. 09/15/2024 12:14 PM EDT [facility] Addendum electronically signed by Diane Ellis MD on 09/15/2024 at 1214 EDT Tissue BREAST STRUCTURE / Unknown 09/11/2024 1:13 PM EST 09/11/2024 1:13 PM EST us Beata Kebede MD PATHOLOGY ORDERABLES Edited R esult - Final [facility] [address] [place] [id number] documented in this encounter Visit Diagnoses Not on filedocumented in this encounter Additional Health Concerns Infection Onset Date Last Indicated Resolved Time COVID-19 09/04/2024 09/04/2024 09/24/2024 10:1 2 PM EDT Assessment Noted Time PHQ-9 Depression Total Score: 17 024 8:39 AM EST PHQ-2 Depression Total Score: 5 07/07/20 24 8:39 AM EST documented as of this encounter Care Teams Wire Wrapping Machine Operator Relationship Specialty [place] [address] [place] [address] PCP - General 06/21/10 Arlyn Schmidt MD [address] [place], [place] [address] Consulting Physician Internal Medicine-Endocrinology , Diabetes & Metabolism 11/28/20 Tacho Echavarria MD 1 [place], [place] 8[address]17 Internal Medicine-Medical Oncology 11/12/23 Matt Ulrich MD 1 [place] [id number] Surgery-Surgical Oncology 12/04/23 Eze Brock Pastoral Care 12/13/23 Cheryl Nair, RN Oncology Nurse Navigator 03/25/2412/13 Annette Walker, FAST FOOD SALES ASSISTANT Activities Volunteer 05/13/24 Batool Celis MD 1 [facility] CANCER CARE [place], [place] [phone] Radiation Oncologist Radiology-Radiation Oncology 06/08/24 documented as of this encounter
--- OUTSIDE RECORDS SUMMARY | 2025-02-19 12:38 | XMS_ITS | Encounter Summary ---
Author Organization [place] [address] Care Team Providers Care Protective Signal Installer Name Role Phone Chetna Cedeno MD Primary Care Provider [phone] Arlyn Schmidt MD Unavailable [phone] Tacho Echavarria MD Unavailable [phone] Matt Ulrich MD Unavailable [phone] Eze Brock Unavailable Annette Walker Unavailable [phone] Batool Celis MD Unavailable [phone] Reason for Visit * Reason Comments Pharmacy Migraine Medication Management Ubrelvy Encounter Details Date Type Department Care Team (Latest Contact Info) Description 01/15/2025 Specialty Pharmacy [facility] [address] [place] [address] Annamarie Mark CPhT Pharmacy Migraine [...] from your doctor or pharmacy? Never 11/07/2023 [facility] Utilities Answer Date Recorded In the past 12 months has th e electric, gas, oil, or water [employer] threatened to shut off services in your [...] Date Recorded PHQ-2 Total Score 5 07/07/2024 [facility] [place] of Occupat ional Health - Occupational Stress [...] in a retirement (including now)? No 11/07/2023 [facility] IP Transportation Answer D [...] Douglas requested a refill of Ubrelvy via [employer]. [employer] message was sent in response with appropriate questionnaire. Will f/u in 2 business days. documented in this encounter Plan of Treatment Upcoming Encounters Date Type Department Care Team (Late st Contact Info) Description 03/02/2025 11:40 AM EDT Office Visit [facility] [address] [place] [address] [place] [address] [place] [address] 03/02/2025 12:45 PM EDT Procedure visit [facility] [address] [facility] [address] [place] [address] Samm Ledesma, SIDE TRIMMER [address] [facility] [facility] [address] [place] [address] 03/10/2025 12:30 PM EDT Appointment [facility] [place], [place] [phone] 03/10/2025 1:00 PM EDT Appointment [facility] [place] [address] Tacho Echavarria MD [address] [place] [address] 04/29/2025 9:15 AM EDT Appointment [facility] [place] [address] Batool Celis MD [address] [facility] [address] [facility] [place], [place] 5[address] 05/19/2025 2:15 PM EST Office Visit [facility] [address] [place] [address] 401 [facility] 1[address] [place] [address] Sin Tran MD [address] [place] [address] [place] [address] 08/12/2025 10:40 AM EST Appointment [facility] Women's Wellness [place] One [facility] [place] [facility]17 Matt Ulrich MD [address] [facility] [address] [place] [address] documented as of this encounter Goals Goal [...] documented as of this encounter Care Teams Protective Signal Installer Relationship Specialty [place] [address] [place] [phone] PCP - General 06/21/10 Arlyn Schmidt MD [address] [place], [place] [address] Consulting Physician Internal Medicine-Endocrinology, Diabetes & Metabolism 11/28/20 Tacho Echavarria MD 1 [place] [address] Internal Medicine-Medical Oncology 11/12/23 Matt Ulrich MD 1 [place], [place] [phone] Surgery-Surgical Oncology 12/04/23 Eze Brock Pastoral Care 12/13/23 Annette Walker, AEROSPACE STRESS ENGINEER Fur Trapper 05/13/24 Batool Celis MD 1 [facility] [place] [address] Radiation Oncologist Radiology-Radiation Oncology 06/08/24 documented as of this encounter
--- OUTSIDE RECORDS SUMMARY | 2025-02-19 12:39 | XMS_ITS | Encounter Summary ---
Author [place] [address] Care Team Providers Care Concrete Mixing Truck Driver Name Role Phone Chetna Cedeno MD Primary Care Provider [phone] Arlyn Schmidt MD Unavailable [phone] Tacho Echavarria MD Unavailable [phone] Matt Ulrich MD Unavailable [phone] Eze Brock Unavailable Annette Walker PRIVATE SECURITY GUARD Unavailable [phone] Batool Celis MD Unavailable [phone] Encounter Details Date Type Department Care Team (Late st Contact Info) Description 12/30/2024 Social Work [facility] Cancer Care [facility] [place] [address] Sonny Fleming, PRIVATE SECURITY GUARD Social History Tobacco Use Types Packs/Day Years [...] doctor or pharmacy? Never 11/07/2023 [facility] Utilities Answer Date Recorded In the past 12 months has th e electric, gas, oil, or water [employer] threatened to shut off services in your [...] Recorded PHQ-2 Total Score 5 07/07/[address] [facility] [place] of Occupat ional Health - Occupational Stress [...] a skilled nursing (including now)? No 11/07/2023 [facility] IP Transportation Answer D [...] AM EDT Office Visit [facility] [address] [place] [address] [place] [address] [place] [address] 03/02/2025 12:45 PM EDT Procedure visit [facility] [address] [place] [address] Samm Ledesma, SOA ENGINEER [address] [address] [facility] [address] [place] [address] 03/10/2025 12:30 PM EDT Appointment [place] [address] 03/10/2025 1:00 PM EDT Appointment [facility] Care Medical Oncology [place], [place] [phone] Tacho Echavarria MD [address] [place] [address] [id number] 04/29/2025 9:15 AM EDT Appointment [place] [address] Batool Celis MD [address] [place] [address] CANCER CARE [place], [place] [address] 05/19/2025 2:15 PM EST Office Visit [place] [address] [place] [address] Sin Tran MD [address] [place] [address] 08/12/2025 10:40 AM EST Appointment [facility] Women's Wellness [facility] [place] [address] Matt Ulrich MD [address] [place] [address] [place] [address] documented as of this encounter [...] documented as of this encounter Care Teams Concrete Mixing Truck Driver Relationship Specialty [place] [address] [place] [address] PCP - General 06/21/10 Arlyn [place] MD [address] [place], [place] [address] Consulting Physician Internal Medicine-Endocrinology, Diabetes & Metabolism 11/28/20 Tacho Echavarria MD 1 [place], [place] 2874317 Internal Medicine-Medical Oncology 11/12/23 Matt Ulrich MD 1 [place], [place] [address] Surgery-Surgical Oncology 12/04/23 Eze Brock Pastoral Care 12/13/23 Annette Walker, PRIVATE SECURITY GUARD Lawn Service Manager 05/13/24 Batool Celis MD 1 [facility] [place] [address] Radiation Oncologist Radiology-Radiation Oncology 06/08/24 documented as of this encounter
--- OUTSIDE RECORDS SUMMARY | 2025-02-19 12:39 | XMS_ITS | Encounter Summary ---
Author Organization [place] [address] Care Team Providers Care Sample Prep Technician Name Role Phone Chetna Cedeno MD Primary Care Provider [phone] Arlyn Schmidt MD Unavailable [phone] Tacho Echavarria MD Unavailable [phone] Matt Ulrich MD Unavailable [phone] Eze Brock Unavailable Annette Walker Unavailable [phone] Batool Celis MD Unavailable [phone] Reason for Visit * Reason Comments Pharmacy Migraine Medication Management Qulipta Encounter Details Date Type Department Care Team (Latest Contact Info) Description 12/31/2024 Specialty Pharmacy [facility] [address] [place] [address] Annamarie Mark CPhT Pharmacy Migraine [...] th e electric, gas, oil, or water [employer] threatened to shut off services in your [...] Score 5 07/07/2024 [facility] [place] of Occupat ional Health - Occupational Stress [...] in a mcfp (including now)? No 11/07/2023 [facility] IP Transportation Answer [...] Mark CPhT - 12/31/2024 11:07 AM EDT [facility] Qulipta RTS til 01/02 * Charlotte Martino CPhT - 12/31/2024 11:07 AM EDT Specialty Pharmacy Refill Coordination Note Contacted [facility] today regarding refills of Qulipta. Copay amount: $0 Sent [employer] message. Patient informed of copay. * Glenna Vo CPhT - 12/31/2024 11:07 AM EDT Specialty Pharmacy Refill Coordination Note Contacted [facility] today regarding refills of Qulipta. Medication to be delivered by [facility] on 01/07. Copay amount: $0 Sent [employer] message. Patient informed of copay. * Glenna Vo CPhT - 12/31/2024 11:07 AM EDT [facility] Medication has been released from [facility] but did not realize patient only has [...] Monson CPhT - 12/31/2024 11:07 AM EDT [facility] Patient will diamond picker medication 01/06. documented in this encounter Plan of Treatment Upcoming Encounters Date Type Department Care Team (Late st Contact Info) Description 03/02/2025 11:40 AM EDT Office Visit [facility] [address] [place] [address] [place] [address] [place] [address] 03/02/2025 12:45 PM EDT Procedure visit [facility] [address] [facility] [address] [place] [address] Samm Ledesma, RECREATION PROFESSOR [address] [facility] [address] [place] [address] 03/10/2025 12:30 PM EDT Appointment [facility] [place], [place] 620[address]17 03/10/2025 1:00 PM EDT Appointment [facility] [place] [address] Tacho Echavarria MD [address] [place] [address] 04/29/2025 9:15 AM EDT Appointment [facility] RAD ONC [place], [place] 97[address] Batool Celis MD [address] [place] [address] [place] [address] 05/19/2025 2:15 PM EST Office Visit [address]D [place] [address] Sin Tran MD [address] [place] [address] RD [place] [address] 08/12/2025 10:40 AM EST Appointment [facility] Women's Wellness [place] One [facility] [address] [place] [address] Matt Ulrich MD [address] [place] [address] [address] [place] [address] documented as of this encounter [...] documented as of this encounter Care Teams Sample Prep Technician Relationship Specialty [place] [address] [place] [phone] PCP - General 06/21/10 Arlyn Schmidt MD [address] [place] [address] Consulting Physician Internal Medicine-Endocrinology, Diabetes & Metabolism 11/28/20 Tacho Echavarria MD 1 [place] [address] Internal Medicine-Medical Oncology 11/12/23 Matt Ulrich MD 1 [place] [address] Surgery-Surgical Oncology 12/04/23 Eze Brock Pastoral Care 12/13/23 Annette Walker, ARACELI Third Grade Teacher 05/13/24 Batool Celis MD 1 [facility] [place] [address] Radiation Oncologist Radiology-Radiation Oncology 06/08/24 documented as of this encounter
--- OUTSIDE RECORDS SUMMARY | 2025-02-19 12:39 | XMS_ITS | Encounter Summary ---
Author Organization [place] [address] Care Team Providers Care Soda Dialyzer Name Role Phone Chetna Cedeno MD Primary Care Provider [phone] Arlyn Schmidt MD Unavailable [phone] Tacho Echavarria MD Unavailable [phone] Matt Ulrich MD Unavailable [phone] Eze Brock Unavailable Annette Walker Unavailable [phone] Batool Celis MD Unavailable [phone] Encounter Details Date Type Department Care Team (Late st Contact Info) Description 12/28/2024 Orders Only Cancer Care Medical Oncology [place], [place] [id number] Tacho Echavarria MD [address] [place] [address] [phone] 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) [...] doctor or pharmacy? Never 11/07/2023 [facility] Utilities Answer Date Recorded [...] Date Recorded PHQ-2 Total Score 5 07/07/2024 [facility] [place] of Occupat ional Health - Occupational Stress [...] in a chcf (including now)? No 11/07/2023 [facility] IP Transportation Answer D ate [...] AM EDT Office Visit [facility] [address] [place] [address] [place] [address] [place] [address] 03/02/2025 12:45 PM EDT Procedure visit [facility] [address] [facility] [address] [place] [address] [phone] Samm Ledesma, FAMILY CASEWORKER [address] [place] [address] 03/10/2025 12:30 PM EDT Appointment [facility] [place], [place] [phone] 03/10/2025 1:00 PM EDT Appointment [facility] [place] [address] Tacho Echavarria MD [address] [place] [address] [id number] 04/29/2025 9:15 AM EDT Appointment [facility] [place] [place] [address] Batool Celis MD [address] [place] [address] [place] [address] 05/19/2025 2:15 PM EST Office Visit [address] [place] [address] Sin Tran MD [facility] [place] [address] 08/12/2025 10:40 AM EST Appointment [facility] [place] [facility] [place] [address] Matt Ulrich MD [address] [place] [address] [address] [place] [address] documented as of this encounter Goals Goal Patient Goal Type Associated Problems Recent Progress Patient-Stated? Author Blood Pressure < 140/90 Blood Pressure 121/77(02/04 2:04 PM EDT) No Chetna Cedeno MD Breast [facility] Breast Health On track(2024 11:27 AM EDT) No Jasmin Porter, RUAL Note: Patient acknowledges understanding of new diagnosis, [...] CHEMISTRY ORDERABLES Final Result Performing Organization Address City/[facility]/ZIP Co de Phone Number PREFERRED LAB Rundown App [facility] 1 [facility] , [place] [address] * VITAMIN B12/ FOLIC ACID (01/06/2025 1:13 PM EDT) Vitamin B12 305 232 - 1,245 pg/mL 01/06/2025 2:55 PM EDT PREFERRED [facility] Folate 15.80 >=4.80 ng/mL 01/06/2025 2:55 PM EDT [facility] Communication Intelligence Blood VENOUS STRUCTURE / Unknown Port / Unknown 01/06/2025 1:13 PM EDT 01/06/2025 1:17 PM EDT Narrative PREFERRED Communication Intelligence - 01/06/2025 2:55 PM EDT Ingestion of haroon doses of biotin (>5 mg/day) taken within 8 hours of drawing blood sample can interfere with this immunoassay test. Tacho Echavarria MD CHEMISTRY ORDERABLES Final Result Performing Organization Address City/[facility] Co de Phone Number [facility] [address] [facility] [place] [address] * (ABNORMAL) COMPREHENSIVE METABOLIC PANEL (01/06/2025 1:13 PM EDT) Sodium 140 136 - 145 mmol/L 01/06/2025 1:37 PM EDT [facility] Potassium 3.8 3.5 - 5.0 mmol/L 01/06/2025 1:37 PM EDT [facility] Chloride 108(H) 98 - 107 mmol/L 01/06/2025 1:37 PM EDT [facility] Total CO2 22 22 - 29 mmol/L 01/06/2025 1:37 PM EDT [facility] Anion Gap 10 7 - 16 mmol/L 01/06/2025 1:37 PM EDT [facility] Calcium 9.2 8.6 - 10.4 mg/dL 01/06/2025 1:37 PM EDT [facility] Glucose Lvl 121(H) 70 - 99 mg/dL 01/06/2025 1:37 PM EDT [facility] BUN 16 6 - 20 mg/dL 01/06/2025 1:37 PM EDT [facility] Creatinine 0.83 0.51 - 1.30 mg/dL 01/06/2025 1:37 PM EDT [facility] Albumin 4.0 3.5 - 5.2 gm/dL 01/06/2025 1:37 PM EDT [facility] Total Protein 6.6 6.4 - 8.3 gm/dL 01/06/2025 1:37 PM EDT [facility] Bili Total 0.4 0.2 - 1.3 mg/dL 01/06/2025 1:37 PM EDT [facility] ALT 9 <=41 U/L 01/06/2025 1:37 PM EDT [facility] AST 14 <=40 U/L 01/06/2025 1:37 PM EDT [facility] Alk Phos 127(H) 36 - 123 U/L 01/06/2025 1:37 PM EDT [facility] eGFR (CKD-EPIcr 2020) 82 >=60 mL/min/1.7 3 m2 01/06/2025 1:37 PM EDT [facility] Comment:Estimated GFR was ca lculated using the CKD-EPIcr (2020) equation refit without race. The equation is recommended by the National Kidney Foundation - [place] Society of Nephrology Task Force. Blood VENOUS STRUCTURE / Unknown Port / Unknown 01/06/2025 1:13 PM EDT 01/06/2025 1:17 PM EDT Tacho Echavarria MD CHEMISTRY ORDERABLES Final Result [facility] 1 [place] [address] * (ABNORMAL) CBC WITH DIFF (01/06/2025 1:13 PM EDT) [facility] WBC 5.1 3.7 - 10.3 x10(3)/mc L 01/06/2025 1:22 PM EDT [facility] RBC 3.61(L) 3.90 - 5.20 x10(6)/mc L 01/06/2025 1:22 PM EDT [facility] Hgb 11.0(L) 11.2 - 15.7 g/dL 01/06/2025 1:22 PM EDT [facility] Hct 33.2(L) 34.0 - 45.0 % 01/06/2025 1:22 PM EDT [facility] MCV 92.0 80.0 - 100.0 fL 01/06/2025 1:22 PM EDT [facility] MCH 30.5 26.0 - 34.0 pg 01/06/2025 1:22 PM EDT [facility] MCHC 33.1 30.7 - 35.5 g/dL 01/06/2025 1:22 PM EDT [facility] RDW 14.5 <=14.9 % 01/06/2025 1:22 PM EDT [facility] Platelet 170 155 - 369 x10(3)/mc L 01/06/2025 1:22 PM EDT [facility] MPV 8.8 8.8 - 12.5 fL 01/06/2025 1:22 PM EDT [facility] Neut # Prelim 3.3 1.6 - 6.1 x10(3)/mc L 01/06/2025 1:22 PM EDT [facility] Comment:Preliminary automate d absolute neutrophil count. Value may change if manual differential is indicated. Neut Percent 65.2 % 01/06/2025 1:22 PM EDT [facility] Comment:Neutrophils equals s egs plus bands Imm Gran% 0.2 % 01/06/2025 1:22 PM EDT [facility] Comment:Automated count of m etamyelocytes, myelocytes and promyelocytes. Lymph Percent 28.1 % 01/06/2025 1:22 PM EDT [facility] Inyo Percent 4.3 % 01/06/2025 1:22 PM EDT [facility] Eos Percent 1.8 % 01/06/2025 1:22 PM EDT [facility] Baso Percent 0.4 % 01/06/2025 1:22 PM EDT [facility] Neut # 3.3 1.6 - 6.1 x10(3)/mc L 01/06/2025 1:22 PM EDT [facility] Comment:Neutrophils equals s egs plus bands IMMGRAN# 0.0 0.0 - 0.1 x10(3)/mc L 01/06/2025 1:22 PM EDT [facility] Comment:Automated count of m etamyelocytes, myelocytes and promyelocytes. An absolute IG <0.1 is reported as 0.0. Lymph # 1.4 1.2 - 3.9 x10(3)/mc L 01/06/2025 1:22 PM EDT [facility] Inyo # 0.2(L) 0.3 - 0.9 x10(3)/mc L 01/06/2025 1:22 PM EDT [facility] Eos# 0.1 0.0 - 0.5 x10(3)/mc L 01/06/2025 1:22 PM EDT [facility] Baso # 0.0 0.0 - 0.1 x10(3)/mc L 01/06/2025 1:22 PM EDT [facility] Blood VENOUS STRUCTURE / Unknown Port / Unknown 01/06/2025 1:13 PM EDT 01/06/2025 1:17 PM EDT Tacho Echavarria MD HEMATOLOGY ORDERABLES Final Result [facility] 1 [place] [address] documented in this encounter Visit Diagnoses Diagnosis 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)- Primary documented in this encounter Additional Health Concerns Assessment Noted Time PHQ-9 Depression Total Score: 17 07/07/2 024 8:39 AM EST PHQ-2 Depression Total Score: 5 07/07/20 8:39 AM EST documented as of this encounter Care Teams Soda Dialyzer Relationship Specialty [place] [address] [place] [address] PCP - General 06/21/10 Arlyn Schmidt MD [address] [place] [address] Consulting Physician Internal Medicine-Endocrinology, Diabetes & Metabolism 11/28/20 Tacho Echavarria MD 1 [place] [address] Internal Medicine-Medical Oncology 11/12/23 Matt Ulrich MD 1 [place] [id number] Surgery-Surgical Oncology 12/04/23 Eze Brock Pastoral Care 12/13/23 Annette Walker, ARACELI Fur Weigher 05/13/24 Batool Celis MD 1 [facility] [place] [address] Radiation Oncologist Radiology-Radiation Oncology 06/08/24 documented as of this encounter
--- OUTSIDE RECORDS SUMMARY | 2025-02-19 12:39 | XMS_ITS | Encounter Summary ---
Author Organization [place] [address] Care Team Providers Care Taffy Puller Name Role Phone Chetna Cedeno MD Primary Care Provider [phone] Arlyn Schmidt MD Unavailable [phone] Tacho Echavarria MD Unavailable [phone] Matt Ulrich MD Unavailable [phone] Eze Brock Unavailable Annette Walker Unavailable [phone] Batool Celis MD Unavailable [phone] Reason for Visit * Reason Onset Date Comments Medication Refill 12/29/2024 Encounter Details Date Type Department Care Team (Late st Contact Info) Description 12/29/2024 Refill [facility] [address] [address] [place] [address] [place] [address] Medication Refill Social History Tobacco [...] from your doctor or pharmacy? Never 11/07/2023 [facility] Utilities Answer Date Recorded In [...] 5 07/07/2024 [facility] - Occupational Stress Questionnaire Answer Date [...] any time in the past 12 [facility], were you homeless or living in a intermediate (including now)? No 11/07/2023 [facility] IP Transportation Answer D ate Recorded [...] of Assessment Author No 12/06/2022 2:08 PM Macraena Henson CCMA * Is the person blind [...] 11:40 AM EDT Office Visit [facility] [address] [place] [address] [place] [address] [place] [address] 03/02/2025 12:45 PM EDT Procedure visit [facility] [address] [place] [address] Samm Ledesma APRN [address] [facility] [address] [place] [address] 03/10/2025 12:30 PM EDT Appointment [facility] [place], [place] [id number] 03/10/2025 1:00 PM EDT Appointment [facility] [place] [address] Tacho Echavarria MD [address] [place] [address] 04/29/2025 9:15 AM EDT Appointment [facility] [place] [address] Batool Celis MD [address] [place] [address] [place] [address] 05/19/2025 2:15 PM EST Office Visit [address] [address] Sin Tran MD [address] [place] [address] 08/12/2025 10:40 AM EST Appointment [facility] [place] [address] Matt Ulrich MD [address] [place] [address] 254 [place] [address] documented as of this encounter Goals Goal [...] documented as of this encounter Care Teams Taffy Puller Relationship Specialty [place] [address] [place] [address] PCP - General 06/21/10 Arlyn Schmidt MD [address] [place] [id number] Consulting Physician Internal Medicine-Endocrinology, Diabetes & Metabolism 11/28/20 Tacho Echavarria MD 1 [place] [address] Internal Medicine-Medical Oncology 11/12/23 Matt Ulrich MD 1 [place] [address] Surgery-Surgical Oncology 12/04/23 Eze Brock Pastoral Care 12/13/23 Annette Walker MSW Fence Repairman 05/13/24 Batool Ceils MD [address] [place] [address] [place] [address] Radiation Oncologist Radiology-Radiation Oncology 06/08/24 documented as of this encounter
--- OUTSIDE RECORDS SUMMARY | 2025-02-19 12:39 | XMS_ITS | Encounter Summary ---
Author Organization [place] [address] Care Team Providers Care Demurrage Worker Name Role Phone Chetna Cedeno MD Primary Care Provider [phone] Arlyn Schmidt MD Unavailable [phone] Tacho Echavarria MD Unavailable [phone] Matt Ulrich MD Unavailable [phone] Eze Brock Unavailable Annette Walker Unavailable [phone] Batool Celis MD Unavailable [phone] Reason for Visit * Reason Comments Medication Refill Encounter Details Date Type Department Care Team (Late st Contact Info) Description 01/15/2025 Refill [facility] Care Medical Oncology [place], [place] [id number] Tacho Echavarria MD [address] [place] [address] [id number] Medication Refill Social History Tobacco Use Types [...] your doctor or pharmacy? Never 11/07/2023 [facility] Utilities Answer Date Recorded In the past [...] Date Recorded PHQ-2 Total Score 5 07/07/2024 [facility] of Occupat ional Health - [...] a group home (including now)? No 11/07/2023 [facility] IP Transportation Answer [...] 11:40 AM EDT Office Visit [facility] [address] [place] [address] [place] [address] [place] [address] 03/02/2025 12:45 PM EDT Procedure visit [facility] [address] [facility] [address] [facility] [address] [place] [address] Samm Ledesma, CURATOR OF EDUCATION [address] [place] [address] 03/10/2025 12:30 PM EDT Appointment [place] [address] 03/10/2025 1:00 PM EDT Appointment [facility] Care Medical Oncology [place], [place] [phone] Tacho Echavarria MD [address] [place] [address] 04/29/2025 9:15 AM EDT Appointment [facility] RAD ONC [place], [place] [phone] Batool Celis MD 1 [facility] [place] [address] 05/19/2025 2:15 PM EST [facility] [address] [facility] [address] [place] [address] Sin Tran MD [address] [place], [place] [address] [address] 08/12/2025 10:40 AM EST Appointment [facility] Women[facility]ness [place] [facility] [place] [phone] Matt Ulrich MD [address] [facility] 254 [place] [address] documented as of this encounter Goals Goal Patient Goal Type Associated Problems Recent Progress Patient-Stated? Author Blood Pressure < 140/90 Blood Pressure 121/77(02/04 2:04 PM EDT) No Chetna Cedeno MD Breast [facility] Breast Health On track(2024 11:27 AM EDT) No Jasmin Porter, RAUL Note: Patient acknowledges understanding of new diagnosis, plan of care, available resources and how to contact Nurse Navigator with any future questions or concerns. Breast [facility] Breast Health Not on track(2024 11:27 [...] documented as of this encounter Care Teams Demurrage Worker Relationship Specialty [place] [address] [place] [address] PCP - General 06/21/10 Arlyn Schmidt MD [address] [place] [address] Consulting Physician Internal Medicine-Endocrinology, Diabetes & Metabolism 11/28/20 Tacho Echavarria MD 1 [place], [place] 9093[address] Internal Medicine-Medical Oncology 11/12/23 Matt Ulrich MD 1 [place] [address] Surgery-Surgical Oncology 12/04/23 Eze Brock Pastoral Care 12/13/23 Annette Walker, ARACELI Loan Auditor 05/13/24 Batool Celis MD 1 [facility] [place] [address] Radiation Oncologist Radiology-Radiation Oncology 06/08/24 documented as of this encounter
--- OUTSIDE RECORDS SUMMARY | 2025-02-19 12:39 | XMS_ITS | Encounter Summary ---
Author Organization [place] [address] Care Team Providers Care Digital Forensics Examiner Name Role Phone Chetna Cedeno MD Primary Care Provider [phone] Arlyn Schmidt MD Unavailable [phone] Tacho Echavarria MD Unavailable [phone] Matt Ulrich MD Unavailable [phone] Eze Brock Unavailable Annette Walker Unavailable [phone] Batool Celis MD Unavailable [phone] Reason for Visit * Reason Onset Date Comments Botox Injection 01/01/2025 ~03/02/2025 Encounter Details Date Type Department Care Team (Late st Contact Info) Description 01/01/2025 Patient Outreach [facility] [address] [place] [address] Samm Ledesma, TREE AND SHRUB WORKER [address] [place] [address] Botox Injection (~03/02/2025 ) Social History Tobacco [...] doctor or pharmacy? Never 11/07/2023 [facility] Utilities Answer Date Recorded In [...] Date Recorded PHQ-2 Total Score 5 07/07/2024 [facility] of Occupat ional [facility] - Occupational Stress Questionnaire Answer Date [...] in a prison (including now)? No 11/07/2023 [facility] IP Transportation [...] 01/01/2025 11:30 AM EDT ~03/02/2025 ANNIE APPROVED: [id number] AUTH #: ASO ASBM Preferred [id number] DATES OF APPROVAL: 08/12/2024-08/11/2025 UNITS APPROVED: 620 units/ 4 visits documented in this encounter Plan of Treatment Upcoming Encounters Date Type Department Care Team (Late st Contact Info) Description 03/02/2025 11:40 AM EDT Office Visit [facility] [address] [place] [address] [place] [address] [place] [address] 03/02/2025 12:45 PM EDT Procedure visit [facility] [address] [place] [address] Samm Ledesma, TREE AND SHRUB WORKER [address] [place] [address] 03/10/2025 12:30 PM EDT Appointment [facility] [place], [place] [phone] 03/10/2025 1:00 PM EDT Appointment [facility] [place] [address] Tacho Echavarria MD [address] [place] [address] [id number] 04/29/2025 9:15 AM EDT Appointment [place] [address] Batool Celis MD [address] [place] [address] [place] [address] 05/19/2025 2:15 PM EST Office Visit [address] [address] Sin Tran MD [address] [place] [address] 08/12/2025 10:40 AM EST Appointment [facility] Women's Wellness [facility] [place] [address] Matt Ulrich MD [address] [place] [address] [address] [place] [address] documented as of this encounter Goals Goal [...] documented as of this encounter Care Teams Digital Forensics Examiner Relationship Specialty [place] [address] [place] [address] PCP - General 06/21/10 Arlyn Schmidt MD [address] [place] [address] Consulting Physician Internal Medicine-Endocrinology, Diabetes & Metabolism 11/28/20 Tacho Echavarria MD 1 [place] [address] Internal Medicine-Medical Oncology 11/12/23 Matt Ulrich MD 1 [place] [address] Surgery-Surgical Oncology 12/04/23 Eze Brock Pastoral Care 12/13/23 Annette Walker MSW Coal Hauler 05/13/24 Batool Celis MD [address] [place] [address] [place] [address] Radiation Oncologist Radiology-Radiation Oncology 06/08/24 documented as of this encounter
--- OUTSIDE RECORDS SUMMARY | 2025-02-19 12:39 | XMS_ITS | Encounter Summary ---
Author Organization [place] [address] Care Team Providers Care Information Officer Name Role Phone Chetna Cedeno MD Primary Care Provider [phone] Arlyn Schmidt MD Unavailable [phone] Tacho Echavarria MD Unavailable [phone] Matt Ulrich MD Unavailable [phone] Eze Brock Unavailable Annette Walker Unavailable [phone] Batool Celis MD Unavailable [phone] Encounter Details Date Type Department Care Team (Late st Contact Info) Description 12/29/2024 Telephone [facility] Care Medical Oncology [place], [place] [phone] Tacho Echavarria MD [address] [place] [address] [phone] Social History Tobacco Use Types Packs/Day Years [...] doctor or pharmacy? Never 11/07/2023 [facility] Utilities Answer Date Recorded In the [...] PHQ-2 Total Score 5 07/07/2024 [facility] [place] of Occupat ional Health - Occupational [...] a long term (including now)? No 11/07/2023 [facility] IP Transportation Answer [...] AM EDT Office Visit [facility] [address] [place] [address] [place] [address] [place] [address] 03/02/2025 12:45 PM EDT Procedure visit [facility] [address] [facility] [address] [place] [address] Samm Ledesma, MAMMAL CONTROL AGENT [address] [address] [place], [place] [phone] 03/10/2025 12:30 PM EDT Appointment [facility] [place], [place] [phone] 03/10/2025 1:00 PM EDT Appointment [facility] Care Medical Oncology [place], [place] [phone] Tacho Echavarria MD [address] [place] [address] [id number] 04/29/2025 9:15 AM EDT Appointment [place] [address] Batool Celis MD [address] [place] [address] CANCER CARE [place], [place] [phone] 05/19/2025 2:15 PM EST Office Visit [address] [address] Sin Tran MD [address] [place] [address] 08/12/2025 10:40 AM EST Appointment [facility] Women's Wellness [place] One [facility] [place] [address] Matt Ulrich MD [address] [place] [address] MUSA Zari [place] [address] documented as of this encounter Goals Goal Patient Goal Type Associated Problems Recent Progress Patient-Stated? Author Blood Pressure < 140/90 Blood Pressure 121/77(02/04 2:04 PM EDT) No Chetna Cedeno MD [facility] On track(2024 11:27 AM EDT) No Jasmin Porter, RN Note: Patient acknowledges understanding of new diagnosis, plan of care, available resources and how to contact Nurse Navigator with any future questions or concerns. [facility] Not on track(2024 11:27 AM EDT) No [...] MISC COMMENT Tiago 01/07/2025 7:35 AM EDT [facility] Blood VENOUS STRUCTURE / Unknown Port / Unknown 01/06/2025 1:13 PM EDT 01/07/2025 7:31 AM EDT Tacho Echavarria MD HEMATOLOGY ORDERABLES Final Result [facility] 1 [place], [place] [phone] documented in this encounter Visit Diagnoses Diagnosis [...] documented as of this encounter Care Teams Information Officer Relationship Specialty [place] [address] [place] [address] PCP - General 06/21/10 Arlyn Schmidt MD [address] [place] [address] Consulting Physician Internal Medicine-Endocrinology, Diabetes & Metabolism 11/28/20 Tacho Echavarria MD 1 [place] [address] Internal Medicine-Medical Oncology 11/12/23 Matt Ulrich MD 1 [place] [address] Surgery-Surgical Oncology 12/04/23 Eze Brock Pastoral Care 12/13/23 Annette Walker MSW Forensic Chemist 05/13/24 Batool Celis MD 1 [facility] [place] [address] Radiation Oncologist Radiology-Radiation Oncology 06/08/24 documented as of this encounter
--- OUTSIDE RECORDS SUMMARY | 2025-02-19 12:39 | XMS_ITS | Encounter Summary ---
Author [place] [address] Care Team Providers Care Drag Seiner Name Role Phone Chetna Cedeno MD Primary Care Provider [phone] Arlyn Schmidt MD Unavailable [phone] Tacho Echavarria MD Unavailable [phone] Matt Ulrich MD Unavailable [phone] Eze Brock Unavailable Annette Walker Unavailable [phone] Batool Celis MD Unavailable [phone] Encounter Details Date Type Department Care Team (Late st Contact Info) Description 12/29/2024 Orders Only [facility] [address] [place] [address] Elie Antoine, [facility] Restless leg syndrome; Essential hypertension, benign Social [...] from your doctor or pharmacy? Never 11/07/2023 [facility] Utilities Answer Date Recorded In the past 12 months has [employer], oil, or water [employer] threatened to shut off services in your [...] Score 5 07/07/2024 [facility] of Occupat ional Health - Occupational [...] any time in the past 12 m [facility], were you homeless or living in a assisted (including now)? No 11/07/2023 [facility] IP Transportation Answer D ate Recorded [...] 11:40 AM EDT Office Visit [facility] [address] [place] [address] [place] [address] [place] [address] 03/02/2025 12:45 PM EDT Procedure visit [facility] [address] [place] [address] Samm Ledesma APRN [address] [place] [address] 03/10/2025 12:30 PM EDT Appointment [place] [address] 03/10/2025 1:00 PM EDT Appointment [facility] Care Medical Oncology [place], [place] [id number] Tacho Echavarria MD [address] [place] [address] [id number] 04/29/2025 9:15 AM EDT Appointment [place] [address] Batool Celis MD [address] [facility] [facility] [address] CANCER CARE [place], [place] [address] 05/19/2025 2:15 PM EST Office Visit [address] [place] [address] Sin Tran MD [address] [place] [address] 08/12/2025 10:40 AM EST Appointment [facility] Women's Wellness [facility] [place] [address] Matt Ulrich MD [address] [place] [address] [address] [place] [address] documented as of this encounter Goals Goal [...] documented as of this encounter Care Teams Drag Seiner Relationship Specialty [place] [address] [place] [address] PCP - General 06/21/10 Arlyn Schmidt MD [address] [place] [address] Consulting Physician Internal Medicine-Endocrinology, Diabetes & Metabolism 11/28/20 Tacho Echavarria MD 1 [place] [address] Internal Medicine-Medical Oncology 11/12/23 Matt Ulrich MD 1 [place] [address] Surgery-Surgical Oncology 12/04/23 Eze Brock Pastoral Care 12/13/23 Annette Walker MSW Community Facilitator 05/13/24 Batool Celis MD 1 [facility] [place] [address] Radiation Oncologist Radiology-Radiation Oncology 06/08/24 documented as of this encounter
--- OUTSIDE RECORDS SUMMARY | 2025-02-19 12:39 | XMS_ITS | Encounter Summary ---
Author Organization [place] [address] Care Team Providers Care Wood Patternmaker Apprentice Name Role Phone Chetna Cedeno MD Primary Care Provider [phone] Arlyn Schmidt MD Unavailable [phone] Tacho Echavarria MD Unavailable [phone] Matt Ulrich MD Unavailable [phone] Eze Brock Unavailable Annette Walker Unavailable [phone] Batool Celis MD Unavailable [phone] Reason for Visit * Reason Comments Oncology Nurse Navigation Encounter Details Date Type Department Care Team (Late st Contact Info) Description 02/10/2025 Patient Outreach [facility] CR TUMOR [address] [place], [place] [phone] Tacho Echavarria MD [address] [place] [address] [phone] Oncology Nurse Navigation Social History Tobacco Use [...] any time in the past 12 m [facility], were you homeless or living in a care home (including now)? No 11/07/2023 [facility] IP Transportation Answer D [...] NN asking for a copy (printed for pickle solution maker) of the letter that Dr. Echavarria wrote regarding the air conditioner and asked for an update on getting a letter to help with her student loanforgiveness. She is in the area today and is asking if she can come and pickle solution maker these letters Theletter about the air conditioner looks like it need editing. NN will send message to clinic. Also dora thompson voicemail for Dr. Echavarria's nurse. Onc NN will continue to follow patient. documented in this encounter Plan of Treatment Upcoming Encounters Date Type Department Care Team (Late st Contact Info) Description 03/02/2025 11:40 AM EDT Office Visit [facility] [address] [place] [address] [place] [address] [place] [address] 03/02/2025 12:45 PM EDT Procedure visit [facility] [address] [place] [address] Samm Ledesma, OXYGEN THERAPIST [address] [facility] [address] [place], [place] 3[address] 03/10/2025 12:30 PM EDT Appointment [place] [address] 03/10/2025 1:00 PM EDT Appointment [place] [address] Tacho Echavarria MD [address] [place] [address] 04/29/2025 9:15 AM EDT Appointment [place] [address] Batool Celis MD [address] [place] [address] [phone] 05/19/2025 2:15 PM EST Office Visit [place] [address] [place] [address] Sin Tran MD [address] [place] [address] 08/12/2025 10:40 AM EST Appointment [facility] Women's Wellness [place] One [facility] [place] [address] Matt Ulrich MD [address] [place] [address] DR [address] [place] [address] documented as of this encounter Goals [...] documented as of this encounter Care Teams Wood Patternmaker Apprentice Relationship Specialty [place] [address] [place] [address] PCP - General 06/21/10 Arlyn Schmidt MD [address] [place], [place] 6[address] Consulting Physician Internal Medicine-Endocrinology, Diabetes & Metabolism 11/28/20 Tacho Echavarria MD 1 [place], [place] [phone] Internal Medicine-Medical Oncology 11/12/23 Matt Ulrich MD 1 [place], [place] 2540517 Surgery-Surgical Oncology 12/04/23 Eze Brock Pastoral Care 12/13/23 Annette Walker, ADMINISTRATIVE DIRECTOR Consulting Technical Manager 05/13/24 Batool Celis MD 1 [facility] [place], [place] 86[address] Radiation Oncologist Radiology-Radiation Oncology 06/08/24 documented as of this encounter
--- OUTSIDE RECORDS SUMMARY | 2025-02-19 12:39 | XMS_ITS | Encounter Summary ---
Author Organization [place] [address] Care Team Providers Care Industrial Machine System Technician Name Role Phone Chetna Cedeno MD Primary Care Provider [phone] Arlyn Schmidt MD Unavailable [phone] Tacho Echavarria MD Unavailable [phone] Matt Ulrich MD Unavailable [phone] Eze Brock Unavailable Annette Walker Unavailable [phone] Batool Celis MD Unavailable [phone] Encounter Details Date Type Department Care Team (Late st Contact Info) Description 12/25/2024 Telephone [facility] [place] [address] Jasmin Porter RN Social History [...] from your doctor or pharmacy? Never 11/07/2023 [facility] Utilities Answer Date Recorded In the [...] Recorded PHQ-2 Total Score 5 07/07/2024 [facility] of Occupat ional [facility] - Occupational Stress Questionnaire Answer Date Recorded [...] in a fci (including now)? No 11/07/2023 [facility] IP Transportation Answer D ate [...] AM EDT Office Visit [facility] [facility] [address] [place] [address] [place] [address] [place] [address] 03/02/2025 12:45 PM EDT Procedure visit [facility] [address] [facility] [address] [place] [address] Samm Ledesma, PERIOPERATIVE EDUCATOR [address] [facility] [address] [place], [place] [phone] 03/10/2025 12:30 PM EDT Appointment [facility] [place] [address] 03/10/2025 1:00 PM EDT Appointment [facility] Medical Oncology [place], [place] [phone] Tacho Echavarria MD [address] [place] [address] [id number] 04/29/2025 9:15 AM EDT Appointment [facility] [place] [address] Batool Celis MD [address] [place] [address] CANCER CARE [place], [place] [phone] 05/19/2025 2:15 PM EST Office Visit [address] [place] [address] Sin Tran MD [address] [place], [place] [address], [place] [address] 08/12/2025 10:40 AM EST Appointment [facility] Women's Wellness [place] One [facility] Em[place] [address] Matt Ulrich MD [address] [facility] [address] [place]USA [place] [address] documented as of this encounter Goals Goal Patient Goal Type Associated Problems Recent Progress Patient-Stated? Author Blood Pressure < 140/90 Blood Pressure 121/77(02/04 2:04 PM EDT) No Chetna Cedeno MD Breast [facility] Breast Health On track(2024 11:27 AM EDT) No Jasmin Porter, RN Note: Patient acknowledges understanding of new diagnosis, plan of care, available resources and how to contact Nurse Navigator with any future questions or concerns. Breast [facility] Breast Health Not on track(2024 11:27 AM EDT) No Jasmin Porter, RAUL Note: Patient will be compliant with monthly SBE and is aware of who to contact for any unusual or concerning findings. Breast [facility] Breast Health On track(2024 11:27 AM EDT) [...] as of this encounter Care Teams Industrial Machine System Technician Relationship Specialty [place] [address] [place] [address] PCP - General 06/21/10 Arlyn Schmidt MD [address] [place] [address] Consulting Physician Internal Medicine-Endocrinology, Diabetes & Metabolism 11/28/20 Tacho Echavarria MD 1 [place] [address] Internal Medicine-Medical Oncology 11/12/23 Matt Ulrich MD 1 [place] [address] Surgery-Surgical Oncology 12/04/23 Eze Brock Pastoral Care 12/13/23 Annette Walker, [facility] Speech Professor 05/13/24 Batool Celis MD 1 [facility] [address] Radiation Oncologist Radiology-Radiation Oncology 06/08/24 documented as of this encounter
--- OUTSIDE RECORDS SUMMARY | 2025-02-19 12:39 | XMS_ITS | Encounter Summary ---
Author [place] [address] Care Team Providers Care Stone Finisher Name Role Phone Chetna Cedeno MD Primary Care Provider [phone] Arlyn Schmidt MD Unavailable [phone] Tacho Echavarria MD Unavailable [phone] Matt Ulrich MD Unavailable [phone] Eze Brock Unavailable Annette Walker Unavailable [phone] Batool Celis MD Unavailable [phone] Reason for Visit * Reason Comments Pharmacy Migraine Medication Management Qulipta pa renewal Encounter Details Date Type Department Care Team (Latest Contact Info) Description 12/23/2024 Specialty Pharmacy [facility] [address] [place] [address] Anisa Lozoya CPhT Pharmacy Migraine [...] PHQ-2 Total Score 5 07/07/2024 [facility] of Occupat ional Health - Occupational [...] in a chcf (including now)? No 11/07/2023 [facility] IP Transportation Answer D [...] - 12/23/2024 3:52 PM EDT [facility] Prior Authorization PA for Qulipta on 12/30/24. Last CR: 12/08/24 Last OV: 09/15/24. Will submit PA. [facility] Prior Authorization Submitted PA for Qulipta to [employer] via covermymeds ([employer] [id number]). Will follow up on 12/25. * Leslie Bentley CPhT - 12/23/2024 3:52 PM EDT [facility] Prior Authorization Determination Received notice of PA approval for Qulipta.. PA approved from 12/23/24 to 12/23/25. Refill coordination scheduled for 12/31/24. documented in this encounter Plan of Treatment Upcoming Encounters Date Type Department Care Team (Late st Contact Info) Description 03/02/2025 11:40 AM EDT Office Visit [facility] [place] [address] [place] [address] [place] [address] [place] [address] 03/02/2025 12:45 PM EDT Procedure visit [facility] [address] [place] [address] Samm Ledesma, BRUSHER AND SHEARER [address] [facility] [address] [place] [address] 03/10/2025 12:30 PM EDT Appointment [place] [address] 03/10/2025 1:00 PM EDT Appointment [facility] [place] [address] Tacho Echavarria MD [address] [place] [address] [id number] 04/29/2025 9:15 AM EDT Appointment [place] [address] Batool Celis MD [address] [place] [address] 05/19/2025 2:15 PM EST Office Visit [address] [address] Sin Tran MD [address] [place] [address] 08/12/2025 10:40 AM EST Appointment [facility] Women's Wellness [place] [address] Matt Ulrich MD [address] [place] [address] [address] [place] [address] documented as of this encounter Goals Goal [...] documented as of this encounter Care Teams Stone Finisher Relationship Specialty [place] [address] [place] [address] PCP - General 06/21/10 Arlyn Schmidt MD [address] [place] [address] Consulting Physician Internal Medicine-Endocrinology, Diabetes & Metabolism 11/28/20 Tacho Echavarria MD 1 [place] [address] Internal Medicine-Medical Oncology 11/12/23 Matt Ulrich MD 1 [place] [address] Surgery-Surgical Oncology 12/04/23 Eze Brock Pastoral Care 12/13/[address] MSW [address] Painter 05/13/24 Batool Celis MD [address] [place] [address] [place] [address] Radiation Oncologist Radiology-Radiation Oncology 06/08/24 documented as of this encounter
--- OUTSIDE RECORDS SUMMARY | 2025-02-19 12:39 | XMS_ITS | Encounter Summary ---
Author Organization [place] [address] Care Team Providers Care General Production Laborer Name Role Phone Chetna Cedeno MD Primary Care Provider [phone] Arlyn Schmidt MD Unavailable [phone] Tacho Echavarria MD Unavailable [phone] Matt Ulrich MD Unavailable [phone] Eze Brock Unavailable Annette Walker Unavailable [phone] Batool Celis MD Unavailable [phone] Encounter Details Date Type Department Care Team (Late st Contact Info) Description 01/11/2025 Orders Only [facility] Medical Oncology [place], [place] [id number] Tacho Echavarria MD [address] [place] [address] [id number] Social History Tobacco Use Types Packs/Day Years [...] Date Recorded PHQ-2 Total Score 5 07/07/2024 [facility] of Occupat ional Health - Occupational Stress [...] in a jail (including now)? No 11/07/2023 [facility] [...] Author No 12/06/2022 2:08 PM EDT Macarena Marino CCMA documented as of this encounter [...] AM EDT Office Visit [facility] [address] [place] [address] [place] [address] [place] [address] 03/02/2025 12:45 PM EDT Procedure visit [facility] [address] [facility] [address] [place] [address] Samm Ledesma, FRUIT PICKER [address] [facility] [address] [place], [place] [address] 03/10/2025 12:30 PM EDT Appointment [place] [address] 03/10/2025 1:00 PM EDT Appointment [facility] [place] [address] Tacho Echavarria MD [address] [place] [address] 04/29/2025 9:15 AM EDT Appointment [place] [address] Batool Celis MD [address] [place] [address] CANCER CARE [place], [place] [id number] 05/19/2025 2:15 PM EST Office Visit [address] [address] Sin Tran MD [address] [place] [address] 08/12/2025 10:40 AM EST Appointment [facility] Women's Wellness [facility] [place] [address] Matt Ulrich MD [address] [place] [address] DR MUSA [place] [address] documented as of this encounter Goals [...] documented as of this encounter Care Teams General Production Laborer Relationship Specialty [place] [address] [place] [address] PCP - General 06/21/10 Arlyn Schmidt MD [address] [place], [place] 13369[address] Consulting Physician Internal Medicine-Endocrinology, Diabetes & Metabolism 11/28/20 Tacho Echavarria MD 1 [place], [place] 8352317 Internal Medicine-Medical Oncology 11/12/23 Matt Ulrich MD 1 [place], [place] 9283617 Surgery-Surgical Oncology 12/04/23 Eze Brock Pastoral Care 12/13/23 Annette Walker, GRAPPLER Coat Finisher 05/13/24 Batool Celis MD 1 [facility] [place] [address] Radiation Oncologist Radiology-Radiation Oncology 06/08/24 documented as of this encounter
--- OUTSIDE RECORDS SUMMARY | 2025-02-19 12:39 | XMS_ITS | Encounter Summary ---
Author Organization [place] [address] Care Team Providers Care Clerical Assistant Name Role Phone Chetna Cedeno MD Primary Care Provider [phone] Arlyn Schmidt MD Unavailable [phone] Tacho Echavarria MD Unavailable [phone] Matt Ulrich MD Unavailable [phone] Eze Brock Unavailable Annette Walker REVIT DRAFTER Unavailable [phone] Batool Celis MD Unavailable [phone] Encounter Details Date Type Department Care Team (Late st Contact Info) Description 12/29/2024 Social Work [facility] Cancer Care [facility] [place] [address] Annette Walker, REVIT DRAFTER Social History Tobacco Use Types Packs/Day Years [...] your doctor or pharmacy? Never 11/07/2023 [facility] Utilities Answer Date Recorded In the past 12 months has [employer], oil, or water [facility] threatened to shut off services in your [...] [facility] of Occupat ional Health - Occupational [...] a group home (including now)? No 11/07/2023 [facility] IP Transportation Answer D ate Recorded In [...] - 12/29/2024 4:05 PM EDT 12/29/24 1603 Communications Department Chairperson Assessment Referred By Patient call Disease/[place] [facility] General House Worker Assignment Breast cancer Reason for Referral Community Supports Identified Needs Adjustment to illness;Housing Social Work Interventions Community Referral;Education/Information;Brief Couseling/Support (MANAGEMENT INTERN received call from Patient requesting 's letter for [facility] air conditioner program. MANAGEMENT INTERN drafted letter and co worker, Sonny Fleming MANAGEMENT INTERN will follow up with MD for signature and share with Patient.) documented in this encounter Plan of Treatment Upcoming Encounters Date Type Department Care Team (Late st Contact Info) Description 03/02/2025 11:40 AM EDT Office Visit [facility] [address] [place] [address] [place] [address] [place] [address] 03/02/2025 12:45 PM EDT Procedure visit [facility] [address] [address] [place] [address] Samm Ledesma, ELECTRONIC MUSICAL INSTRUMENT REPAIRER [address] [facility] [address] [place] [address] 03/10/2025 12:30 PM EDT Appointment [place] [address] 03/10/2025 1:00 PM EDT Appointment Cancer Care Medical Oncology [place], [place] [phone] Tacho Echavarria MD 1 [place] [address] 04/29/2025 9:15 AM EDT Appointment [facility] [address] Batool Celis MD [address] [facility] [place] [address] 05/19/2025 2:15 PM EST Office Visit [facility] [address] [place] [address] [address] [place] [address] Sin Tran MD [address] [place] [address] 08/12/2025 10:40 AM EST Appointment [facility] Women's Wellness [place] One [facility] [place] [address] Matt Ulrich MD 20 [facility] [address] [place] [address] documented as of this encounter Goals Goal [...] documented as of this encounter Care Teams Clerical Assistant Relationship Specialty [place] [address] [place] [address] PCP - General 06/21/10 Arlyn Schmidt MD [address] [place] [address] Consulting Physician Internal Medicine-Endocrinology, Diabetes & Metabolism 11/28/20 Tacho Echavarria MD 1 [place], [place] [phone] Internal Medicine-Medical Oncology 11/12/23 Matt Ulrich MD 1 [place] [address] Surgery-Surgical Oncology 12/04/23 Eze Brock Pastoral Care 12/13/23 Annette Walker MSW General House Worker 05/13/24 Batool Celis MD 1 [facility] [place] [address] Radiation Oncologist Radiology-Radiation Oncology 06/08/24 documented as of this encounter
--- OUTSIDE RECORDS SUMMARY | 2025-02-19 12:39 | XMS_ITS | Encounter Summary ---
Author [place] [address] Care Team Providers Care Manual Lathe Operator Name Role Phone Chetna Cedeno MD Primary Care Provider [phone] Arlyn Schmidt MD Unavailable [phone] Tacho Echavarria MD Unavailable [phone] Matt Ulrich MD Unavailable [phone] Eze Brock Unavailable Annette Walker Unavailable [phone] Batool Celis MD Unavailable [phone] Reason for Visit * Reason Onset Date Comments Medication Refill 12/29/2024 Encounter Details Date Type Department Care Team (Late st Contact Info) Description 12/29/[address] [address] Munir Hilton MD [address] [place] [address] Medication Refill Social History Tobacco Use Types [...] from your doctor or pharmacy? Never 11/07/2023 [facility] Utilities Answer Date Recorded In [...] Date Recorded PHQ-2 Total Score 5 07/07/2024 [facility] [place] of Occupat ional Health - Occupational Stress [...] in a jail (including now)? No 11/07/2023 [facility] IP Transportation [...] 11:40 AM EDT Office Visit [facility] MERRITT [address] [place] [address] [place] [address] [place] [address] 03/02/2025 12:45 PM EDT Procedure visit [facility] [address] [facility] [address] [place] [address] Samm Ledesma, BUSINESS SUPPORT ADMINISTRATOR [address] [facility] [address] [place] [address] 03/10/2025 12:30 PM EDT Appointment [place] [address] 03/10/2025 1:00 PM EDT Appointment [facility] Medical Oncology [place], [place] 1598417 Tacho Echavarria MD [address] [place] [address] 04/29/2025 9:15 AM EDT Appointment [facility] [place] [address] Batool Celis MD 1 [facility] [place] [address] 05/19/2025 2:15 PM EST Office Visit [address] 401 [facility] [address] [place] [address] Sin Tran MD [address] [place] [address] [place] [phone] 08/12/2025 10:40 AM EST Appointment [facility] Women's Wellness [facility] [place] [id number] Matt Ulrich MD 20 [facility] 254 [place] [address] documented as of this encounter Goals Goal Patient Goal Type Associated Problems Recent Progress Patient-Stated? Author Blood Pressure < 140/90 Blood Pressure 121/77(02/04 2:04 PM EDT) No Chetna Cedeno MD [facility] Breast Health On track(2024 11:27 AM EDT) No Jasmin Porter, RN Note: Patient acknowledges understanding of new diagnosis, plan of care, available resources and how to contact Nurse Navigator with any future questions or concerns. Breast [facility] Breast Health Not on track(2024 11:27 AM [...] documented as of this encounter Care Teams Manual Lathe Operator Relationship Specialty [place] [address] [place] [address] PCP - General 06/21/10 Arlyn Schmidt MD [address] [place] [address] Consulting Physician Internal Medicine-Endocrinology, Diabetes & Metabolism 11/28/20 Tacho Echavarria MD 1 [place], [place] [phone] Internal Medicine-Medical Oncology 11/12/23 Matt Ulrich MD 1 [place], [place] 734[address]17 Surgery-Surgical Oncology 12/04/23 Eze Brock Pastoral Care 12/13/23 Annette Walker, ARACELI Yarn Comber 05/13/24 Batool Celis MD 1 [facility] [address] Radiation Oncologist Radiology-Radiation Oncology 06/08/24 documented as of this encounter
--- OUTSIDE RECORDS SUMMARY | 2025-02-19 12:39 | XMS_ITS | Encounter Summary ---
Author Organization [place] [address] Care Team Providers Care Environmental Sustainability Manager Name Role Phone Chetna Cedeno MD Primary Care Provider [phone] Arlyn Schmidt MD Unavailable [phone] Tacho Echavarria MD Unavailable [phone] Matt Ulrich MD Unavailable [phone] Eze Brock Unavailable Annette Walker Unavailable [phone] Batool Celis MD Unavailable [phone] Encounter Details Date Type Department Care Team (Late st Contact Info) Description 01/13/2025 Plan of Care Documentation [facility] Physical Therapy [address] [place] [address] Social History Tobacco Use Types [...] in the past 12 m [facility], were you homeless or living in a fpc (including now)? No 11/07/[address] [facility] IP Transportation Answer D ate [...] Author No 12/06/2022 2:08 PM EDT Macarena Maroin CCMA documented in this encounter Miscellaneous Notes [...] to walk with no AD by then, [place] (but pt states that she was told this may have been a misdiagnosis), currently taking chemo pill, R mastectomy Jun 2024, radiation ended 09/25/24, chronic back issues with sciatica Physician: Jericho ESCOBAR Follow Up: 11/11/24 Evaluation Date: 10/30/24 Reassessment Due: 12/26/24 Primary Insurance: MEDICAID /[facility] [id number] [facility] Secondary Insurance: n/a Insurance Authorization: AMB REFERRAL TO PHYSICAL THERAPY Authorized (10/08/2024-01/28/2025) Visits Requested Visits Authorized Visits Completed Visits Scheduled -- Details Referral ID: [id number] Authorization Status Reason: Received Carrier Authorization Authorization Comments: -- Referred To: Shaunna Workman PT at [facility] PT Referred By: Tacho Echavarria MD at [facility] CANCER CTR MED ONC, 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 pt verbalized understanding of this again. 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 Access Code: [email or web address] URL: [email or web address] Date: 11/11/2024 Prepared by: Romana Bowman Exercises [...] will be Independent with HEP to improve mcc health and reduce risk for injury. indbut [...] increase from 727 feet with RW to 6859-5091 feet with LRAD to improve gait elisha [...] away. Treatments to consist of Therapeutic exercise 29734, Neuromuscular re-education 92050, Manual soft tissue and/or joint mobilization 40543, Patient education, Therapeutic activity 64593, and Gait training 22509. Electronically signed by: Signed: Shaunna Workman PT Date: 01/13/2025 documented in this encounter Plan of Treatment Upcoming Encounters Date Type Department Care Team (Late st Contact Info) Description 03/02/2025 11:40 AM EDT Office Visit [facility] MERRITT [address] [place] [address] [place] [address] [place] [address] 03/02/2025 12:45 PM EDT Procedure visit [facility] [address] [facility] [address] [place] [address] Samm Ledesma APRN [address] [facility] [address] [place] [address] 03/10/2025 12:30 PM EDT Appointment [facility] [place], [place] [id number] 03/10/2025 1:00 PM EDT Appointment [facility] [place] [address] Tacho Echavarria MD [address] [place] [address] [id number] 04/29/2025 9:15 AM EDT Appointment [place] [address] Batool Celis MD [address] [place] [address] [place] [address] 05/19/2025 2:15 PM EST Office Visit [facility] 49[address] [facility] [address] [place] [address] Sin Tran MD [address] [place] [address] 08/12/2025 10:40 AM EST Appointment [facility] Women[facility] [place] [address] Matt Ulrich MD [address] [place] [address] 254 [place] [address] documented as of this encounter Goals Goal [...] documented as of this encounter Care Teams Environmental Sustainability Manager Relationship Specialty [place] [address] [place] [address] PCP - General 06/21/10 Arlyn Schmidt MD [address] [place] [address] Consulting Physician Internal Medicine-Endocrinology, Diabetes & Metabolism 11/28/20 Tacho Echavarria MD 1 [place] [address] Internal Medicine-Medical Oncology 11/12/23 Matt Ulrich MD 1 [place], [place] 647[address] Surgery-Surgical Oncology 12/04/23 Eze Brock Pastoral Care 12/13/23 Aaron Annette, HORSEBACK RIDING INSTRUCTOR Transportation Planning Engineer 05/13/24 Batool Celis MD [address] [place] [address] [place] [address] Radiation Oncologist Radiology-Radiation Oncology 06/08/24 documented as of this encounter
--- OUTSIDE RECORDS SUMMARY | 2025-02-19 12:39 | XMS_ITS | Encounter Summary ---
Author Organization [place] [address] Care Team Providers Care Senior Software Development Engineer Name Role Phone Chetna Cedeno MD Primary Care Provider [phone] Arlyn Schmidt MD Unavailable [phone] Tacho Echavarria MD Unavailable [phone] Matt Ulrich MD Unavailable [phone] Eze Brock Unavailable Annette Walker Unavailable [phone] Batool Celis MD Unavailable [phone] Encounter Details Date Type Department Care Team (Late st Contact Info) Description 12/23/2024 Telephone [facility] On[facility] [place], [place] [phone] Tacho Echavarria MD [address] [place] [address] [id number] Social History Tobacco Use Types Packs/Day Years [...] or pharmacy? Never 11/07/2023 [facility] Utilities Answer Date Recorded In the [...] Total Score 5 07/07/2024 [facility] [place] of Occupat ional Health - Occupational Stress [...] in a custodial (including now)? No 11/07/2023 [facility] IP [...] 11:40 AM EDT Office Visit [facility]ULO Mahmood [address] [place] [address] [place] [address] [place] [address] 03/02/2025 12:45 PM EDT Procedure visit [facility] [address] [place], [place] [address] Samm Ledesma, SOCIOLOGY RESEARCH ASSISTANT [address] [facility] [address] [place], [place] 199[address] 03/10/2025 12:30 PM EDT Appointment [facility] [place], [place] [id number] 03/10/2025 1:00 PM EDT Appointment [facility] [place] [address] Tacho Echavarria MD [address] [place], [place] [address] 04/29/2025 9:15 AM EDT Appointment [place] [address] Batool Celis MD [address] [place] [address] [place] [address] 05/19/2025 2:15 PM EST Office Visit [address] [place] [address] Sin Tran MD [address] [place] [address] 08/12/2025 10:40 AM EST Appointment [facility] Women's Wellness [facility] [place] [address] Matt Ulrich MD [address] [place] [address] 254 [place] [address] documented as of this encounter Goals Goal Patient Goal Type Associated Problems Recent Progress Patient-Stated? Author Blood Pressure < 140/90 Blood Pressure 121/77(02/04 2:04 PM EDT) No Chetna Cedeno MD Breast [facility] On track(2024 11:27 AM EDT) No Jasmin Porter, RN Note: Patient acknowledges understanding of new diagnosis, plan of care, available resources and how to contact Nurse Navigator with any future questions or concerns. Breast [facility] Not on track(2024 11:27 [...] MISC COMMENT Tiago 01/07/2025 7:34 AM EDT [facility] Blood VENOUS STRUCTURE / Unknown Port / Unknown 01/06/2025 1:13 PM EDT 01/07/2025 7:31 AM EDT Tacho Echavarria MD HEMATOLOGY ORDERABLES Final Result [facility] [address] [place] [address] [phone] documented in this encounter Visit Diagnoses Diagnosis [...] as of this encounter Care Teams Senior Software Development Engineer Relationship Specialty [place] [address] [place] [address] PCP - General 06/21/10 Arlyn Schmidt MD [address] [place] [address] Consulting Physician Internal Medicine-Endocrinology, Diabetes & Metabolism 11/28/20 Tacho Echavarria MD 1 [place] [address] Internal Medicine-Medical Oncology 11/12/23 Matt Ulrich MD 1 [place], [place] 3149[address] Surgery-Surgical Oncology 12/04/23 Eze Brock Pastoral Care 12/13/23 Annette Walker, INSTRUCTOR BALLROOM DANCING Youth Ministry Director 05/13/24 Batool Celis MD 1 [facility] [place] [address] Radiation Oncologist Radiology-Radiation Oncology 06/08/24 documented as of this encounter
--- OUTSIDE RECORDS SUMMARY | 2025-02-19 12:39 | XMS_ITS | Encounter Summary ---
Author Organization [place] [address] Care Team Providers Care Cylinder Worker Name Role Phone Chetna Cedeno MD Primary Care Provider [phone] Arlyn Schmidt MD Unavailable [phone] Tacho Echavarria MD Unavailable [phone] Matt Ulrich MD Unavailable [phone] Eze Brock Unavailable Annette Walker Unavailable [phone] Batool Celis MD Unavailable [phone] Reason for Visit * Reason Comments Pharmacy Oncology Management Pharmacy Reassessment abemaciclib (Verze nio) Encounter Details Date Type Department Care Team (Latest Contact Info) Description 12/25/2024 Specialty Pharmacy [facility] [address] [place] [address] Hilary Rivas, [facility] Pharmacy Oncology Management; Pharmacy Reassessment (abemaciclib [...] in a usp (including now)? 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 Jericho Cole is a 59 y.o. [...] into the lungs daily. fluticasone propionate 1 [place] by Nasal route daily. Aerochamber MV 1 Each by [facility]Non-Drug; Combo Route) route as [...] Roland RPH - 12/25/2024 10:18 AM EDT [facility] Per secure chat with provider. Will hold off on dose escalation at this time. Plan to re-evaluate in 1 month. documented in this encounter Plan of Treatment Upcoming Encounters Date Type Department Care Team (Late st Contact Info) Description 03/02/2025 11:40 AM EDT Office Visit [facility] [place] [facility] [address] [place] [address] [place] [address] [place] [address] 03/02/2025 12:45 PM EDT Procedure visit [facility] [address] [facility] [address] [place] [address] Samm Ledesma, SUPERVISOR SEAMING [address] [facility] [address] [place] [address] 03/10/2025 12:30 PM EDT Appointment [facility] [place] [id number] 03/10/2025 1:00 PM EDT Appointment [facility] Oncology [place], [place] 5709517 Tacho Echavarria MD [address] [place] [address] 04/29/2025 9:15 AM EDT Appointment [facility] RAD ONC [place], [place] 1672817 Batool Celis MD [address] [place] [address] [place] [address] 05/19/2025 2:15 PM EST Office Visit [facility] [place] [address] [facility] [address] [place] [address] Sin Tran MD [facility] [place] [address] 08/12/2025 10:40 AM EST Appointment [facility] Women's Wellness [facility] [place] [facility] [place] [address] Matt Ulrich MD [address] [place] [address] [address] [place] [address] documented as of this encounter [...] documented as of this encounter Care Teams Cylinder Worker Relationship Specialty [place] [address] [place] [address] PCP - General 06/21/10 Arlyn Schmidt MD [address] [place] [address] Consulting Physician Internal Medicine-Endocrinology, Diabetes & Metabolism 11/28/20 Tacho Echavarria MD 1 [place] [address] Internal Medicine-Medical Oncology 11/12/23 Matt Ulrich MD 1 [place] [address] Surgery-Surgical Oncology 12/04/23 Eze Brock Pastoral Care 12/13/23 Annette Walker, TIRE ADJUSTER Fixing Machine Operator 05/13/24 Batool Celis MD [address] [facility] [place] [address] Radiation Oncologist Radiology-Radiation Oncology 06/08/24 documented as of this encounter
--- OUTSIDE RECORDS SUMMARY | 2025-02-19 12:39 | XMS_ITS | Encounter Summary ---
Author Organization [place] [address] Care Team Providers Care Animal Husbandman Name Role Phone Chetna Cedeno MD Primary Care Provider [phone] Arlyn Schmidt MD Unavailable [phone] Tacho Echavarria MD Unavailable [phone] Matt Ulrich MD Unavailable [phone] Eze Brock Unavailable Annette Walker Unavailable [phone] Batool Celis MD Unavailable [phone] Encounter Details Date Type Department Care Team (Late st Contact Info) Description 01/15/2025 Plan of Care Documentation [facility] Physical Therapy [address] [place] [address] Social History Tobacco Use Types [...] from your doctor or pharmacy? Never 11/07/2023 [facility] Utilities Answer Date Recorded In [...] in a intermediate (including now)? No 11/07/2023 [facility] IP Transportation Answer D ate [...] AM EDT Office Visit [facility] [place] [facility] [address] [place] [address] [place] [address] [place] [address] 03/02/2025 12:45 PM EDT Procedure visit [facility] [address] [facility] [address] [place] [address] Samm Ledesma, SSIS ETL DEVELOPER [address] [facility] [facility] [address] [place] [address] 03/10/2025 12:30 PM EDT Appointment [facility] [place], [place] [phone] 03/10/2025 1:00 PM EDT Appointment [facility] Medical Oncology [place], [place] 1120817 Tacho Echavarria MD [address] [place] [address] 04/29/2025 9:15 AM EDT Appointment [facility] RAD ONC [place], [place] 6808617 Batool Celis MD [address] [place] [address] CANCER CARE [place], [place] 64[address]17 05/19/2025 2:15 PM EST Office Visit [place] [address] [place] [address] Sin Tran MD [address] [place] [address] 08/12/2025 10:40 AM EST Appointment [facility] Women's Wellness [facility] [place] [phone] Matt Ulrich MD [address] [place] [address] [place] [address] documented as of this encounter [...] documented as of this encounter Care Teams Animal Husbandman Relationship Specialty [place] [address] [address] [facility] [address] PCP - General 06/21/10 Arlyn Schmidt MD [address] [place] [address] Consulting Physician Internal Medicine-Endocrinology, Diabetes & Metabolism 11/28/20 Tacho Echavarria MD 1 [place] [id number] Internal Medicine-Medical Oncology 11/12/23 Matt Ulrich MD 1 [place] 3348417 Surgery-Surgical Oncology 12/04/23 Eze Brock Pastoral Care 12/13/23 Annette Walker, ARACELI Product Sales Engineer 05/13/24 Batool Celis MD 1 [facility] [place] [address] Radiation Oncologist Radiology-Radiation Oncology 06/08/24 documented as of this encounter
--- OUTSIDE RECORDS SUMMARY | 2025-02-19 12:39 | XMS_ITS | Encounter Summary ---
Author Organization [place] [address] Care Team Providers Care Broomcorn Press Feeder Name Role Phone Chetna Cedeno MD Primary Care Provider [phone] Arlyn Schmidt MD Unavailable [phone] Tacho Echavarria MD Unavailable [phone] Matt Ulrich MD Unavailable [phone] Eze Brock Unavailable Annette Walker Unavailable [phone] Batool Celis MD Unavailable [phone] Reason for Visit * Reason Comments Pharmacy Oncology Management Abemaciclib Encounter Details Date Type Department Care Team (Latest Contact Info) Description 01/07/2025 Specialty Pharmacy [facility] [address] [place] [address] Anisa Lozoya CPhT Pharmacy Oncology [...] th e electric, gas, oil, or water [employer] threatened to shut off services in your [...] Date Recorded PHQ-2 Total Score 5 07/07/2024 [facility] [place] of Occupat ional Health - Occupational Stress [...] in a fdc (including now)? No 11/07/2023 [facility] IP Transportation Answer D ate Recorded In [...] Rodriguez RPH - 01/07/2025 10:56 AM EDT [place] [place] [facility] - Care Plan and Refill Review Refill questions and refill history verified. Last assessment 12/25/24. No reassessment needed at this time. Chetna Rodriguez Kianna Specialty Pharmacist documented in this encounter Plan of Treatment Upcoming Encounters Date Type Department Care Team (Late st Contact Info) Description 03/02/2025 11:40 AM EDT Office Visit [facility] [address] [place] [address] [place] [address] [place] [address] 03/02/2025 12:45 PM EDT Procedure visit [facility] NE[facility] [address] [facility] [address] [place] [address] Samm Ledesma APRN [address] [facility] [address] [place] [address] 03/10/2025 12:30 PM EDT Appointment [place] [address] 03/10/2025 1:00 PM EDT Appointment [facility] [place] [address] Tacho Echavarria MD [address] [place] [address] 04/29/2025 9:15 AM EDT Appointment [facility] [place] [address] Batool Celis MD [address] [place] [address] [place] [address] 05/19/2025 2:15 PM EST Office Visit [address] [address] Sin Tran MD [address] [place] [address] 08/12/2025 10:40 AM EST Appointment [facility] Women's Wellness [facility] [place] [address] Matt Ulrich MD [address] [place] [address] 254 [place] [address] documented as of this encounter Goals Goal [...] documented as of this encounter Care Teams Broomcorn Press Feeder Relationship Specialty Start [place] [address] [place] [address] PCP - General 06/21/[address] [facility] [address] [place], [place] [address] Consulting Physician Internal Medicine-Endocrinology, Diabetes & Metabolism 11/28/20 Tacho Echavarria MD [address] [place] [address] Internal Medicine-Medical Oncology 11/12/23 Matt Ulrich MD [address] [place] [address] Surgery-Surgical Oncology 12/04/23 Eze Brock Pastoral Care 12/13/23 Annette Walker MSW Char House Supervisor 05/13/24 Batool Celis MD [address] [place] [address] [place] [address] Radiation Oncologist Radiology-Radiation Oncology 06/08/24 documented as of this encounter
--- OUTSIDE RECORDS SUMMARY | 2025-02-19 12:40 | XMS_ITS | Encounter Summary ---
Author Organization [place] [address] Care Team Providers Care Cnc Specialist Name Role Phone Chetna Cedeno MD Primary Care Provider [phone] Arlyn Schmidt MD Unavailable [phone] Tacho Echavarria MD Unavailable [phone] Matt Ulrich MD Unavailable [phone] Eze Brock Unavailable Annette Walker Unavailable [phone] Batool Celis MD Unavailable [phone] Reason for Visit * Reason Comments Pharmacy Migraine Medication Management Qulipta Encounter Details Date Type Department Care Team (Latest Contact Info) Description 01/28/2025 Specialty Pharmacy [facility] [address] [place] [address] Sheridan Arellano CPhT Pharmacy Migraine [...] th e electric, gas, oil, or water PhoneAndPhone threatened to shut off services in your [...] Date Recorded PHQ-2 Total Score 5 07/07/2024 [facility] of Occupat ional Health - Occupational Stress [...] a long-term (including now)? No 11/07/2023 [facility] IP Transportation Answer D [...] refills of Qulipta. Copay amount: $0 Sent Sogou message. Patient informed of copay. * Aaliyah [...] AM EDT Office Visit [facility] [place] [address] [place] [address] [place] [address] [place] [address] 03/02/2025 12:45 PM EDT Procedure visit [facility] [address] [place] [address] Samm Ledesma APRN [address] [place] [address] 03/10/2025 12:30 PM EDT Appointment [place] [address] 03/10/2025 1:00 PM EDT [facility]ment [facility] [place] [address] Tacho Echavarria MD [address] [place] [address] 04/29/2025 9:15 AM EDT Appointment [facility] [place] [address] Batool Celis MD [address] [place] [address] [place] [address] 05/19/2025 2:15 PM EST Office Visit [address] [address] Sin Tran MD [address] [place] [address] 08/12/2025 10:40 AM EST Appointment [facility] Women's Wellness [place] [address] Matt Ulrich MD [address] [place] [address] [address] [place] [address] documented as of this encounter Goals Goal [...] documented as of this encounter Care Teams Cnc Specialist Relationship Specialty [place] [address] [place] [address] PCP - General 06/21/10 Arlyn Schmidt MD [address] [place] [address] Consulting Physician Internal Medicine-Endocrinology, Diabetes & Metabolism 11/28/20 Tacho Echavarria MD 1 [place] [address] Internal Medicine-Medical Oncology 11/12/23 Matt Ulrich MD 1 [place] [address] Surgery-Surgical Oncology 12/04/23 Eze Brock Pastoral Care 12/13/23 Annette Walker MSW Nail Mill Worker 05/13/24 Batool Celis MD 1 [facility] [place] [address] Radiation Oncologist Radiology-Radiation Oncology 06/08/24 documented as of this encounter
--- OUTSIDE RECORDS SUMMARY | 2025-02-19 12:40 | XMS_ITS | Encounter Summary ---
Author Organization [place] [address] Care Team Providers Care Rn Orthopedic Name Role Phone Chetna Cedeno MD Primary Care Provider [phone] Arlyn Schmidt MD Unavailable [phone] Tacho Echavarria MD Unavailable [phone] Matt Ulrich MD Unavailable [phone] Eze Brock Unavailable Annette Walker Unavailable [phone] Batool Celis MD Unavailable [phone] Reason for Visit * Reason Onset Date Comments Medication Refill 02/08/2025 Encounter Details Date Type Department Care Team (Late st Contact Info) Description 02/08/2025 Refill [facility] On[facility] [place], [place] [id number] Tacho Echavarria MD [address] [place] [address] [id number] Medication Refill Social History Tobacco Use Types [...] doctor or pharmacy? Never 11/07/2023 [facility] Utilities Answer Date Recorded In the [...] No 11/07/2023 Housing Stability Vital Sign Answer Onah e Recorded In the last 12 months, [...] in a fpc (including now)? No 11/07/2023 [facility] IP Transportation Answer D [...] 11:40 AM EDT Office Visit [place] [facility] [address] [place] [address] [place] [address] [place] [address] 03/02/2025 12:45 PM EDT Procedure visit [facility] [address] [facility] [address] [place] [address] Samm Ledesma, LEYLA [address] [place] [address] 03/10/2025 12:30 PM EDT Appointment [place] [address] 03/10/2025 1:00 PM EDT Appointment [facility] [place] [address] Tacho Echavarria MD [address] [place] [address] [id number] 04/29/2025 9:15 AM EDT Appointment [facility] [place] [address] Batool Celis MD [address] [place] [address] [place] [address] 05/19/2025 2:15 PM EST Office Visit [address] [facility] 1D [place] [address] Sin Tran MD [address] [place] [address] 08/12/2025 10:40 AM EST Appointment [facility] Women's Wellness [place] [address] Matt Ulrich MD [address] [place] [address] [address] [place] [address] documented as of this encounter Goals Goal [...] with any future questions or concerns. [facility] Breast Health Not on track(2024 11:27 [...] as of this encounter Care Teams Rn Orthopedic Relationship Specialty [place] [address] [place] [address] PCP - General 06/21/10 Arlyn Schmidt MD [address] [place] [address] Consulting Physician Internal Medicine-Endocrinology, Diabetes & Metabolism 11/28/20 Tacho Echavarria MD 1 [place] [id number] Internal Medicine-Medical Oncology 11/12/23 Matt Ulrich MD 1 [place] [id number] Surgery-Surgical Oncology 12/04/23 Eze Brock Pastoral Care 12/13/23 Annette Walker, NOUGAT CUTTER MACHINE Telecommunicator 05/13/24 Batool Celis MD 1 [place] [address] Radiation Oncologist Radiology-Radiation Oncology 06/08/24 documented as of this encounter
--- OUTSIDE RECORDS SUMMARY | 2025-02-19 12:40 | XMS_ITS | Encounter Summary ---
Author Organization [place] [address] Care Team Providers Care Assistant Manager Airside Operations Name Role Phone Chetna Cedeno MD Primary Care Provider Arlyn Schmidt MD Unavailable [phone] Tacho Echavarria MD Unavailable [phone] Matt Ulrich MD Unavailable [phone] Eze Brock Unavailable Annette Walker Unavailable [phone] Batool Celis MD Unavailable [phone] Encounter Details Date Type Department Care Team (Latest Contact Info) Description 01/27/2025 Results Follow-Up [facility] 1 [place] [address] Benito Snell, PharmD PHARMACOGENOMIC PANEL [...] [facility] of Occupat ional [facility] - Occupational Stress Questionnaire Answer Date [...] a senior living (including now)? No 11/07/2023 [facility] IP Transportation Answer D ate Recorded [...] AM EDT Office Visit [facility] [place] [facility] [address] [place] [address] [place] [address] [place] [address] 03/02/2025 12:45 PM EDT Procedure visit [facility] [address] [facility] [address] [place] [address] Samm Ledesma, MANUFACTURING ASSISTANT [address] [place], [place] [id number] 03/10/2025 12:30 PM EDT Appointment [place] [address] 03/10/2025 1:00 PM EDT Appointment [facility] Medical Oncology [place], [place] [phone] Tacho Echavarria MD [address] [place] [address] [phone] 04/29/2025 9:15 AM EDT Appointment [place] [address] Batool Celis MD [address] [place] [address] CANCER CARE [place], [place] [phone] 05/19/2025 2:15 PM EST Office Visit [address] [place] [address] Sin Tran MD [address] [place], [place] [address], [place] [address] 08/12/2025 10:40 AM EST Appointment [facility] Women's Wellness [place] [facility] [place] [address] Matt Ulrich MD [address] [place] [address] documented as of this encounter [...] Diagnoses Diagnosis 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 Primary hypercoagulable state documented in this encounter Additional Health Concerns Assessment Noted Time PHQ-9 Depression Total Score: 17 024 8:39 AM EST PHQ-2 Depression Total Score: 5 07/07/20 24 8:39 AM EST documented as of this encounter Care Teams Assistant Manager Airside Operations Relationship Specialty [place] [address] [place] [address] PCP - General 06/21/10 Arlyn Schmidt MD [address] [place] [address] Consulting Physician Internal Medicine-Endocrinology, Diabetes & Metabolism 11/28/20 Tacho Echavarria MD 1 [place], [place] [phone] Internal Medicine-Medical Oncology 11/12/23 Matt Ulrich MD 1 [place], [place] [id number] Surgery-Surgical Oncology 12/04/23 Eze Brock Pastoral Care 12/13/23 Annette Walker, MICA MACHINE OPERATOR Paint Line Production Supervisor 05/13/24 Batool Celis MD 1 [facility] [place] [address] Radiation Oncologist Radiology-Radiation Oncology 06/08/24 documented as of this encounter
--- OUTSIDE RECORDS SUMMARY | 2025-02-19 12:40 | XMS_ITS | Encounter Summary ---
Author Organization [place] [address] Care Team Providers Care Telesales Specialist Name Role Phone Chetna Cedeno MD Primary Care Provider [phone] Arlyn Schmidt MD Unavailable [phone] Tacho Echavarria MD Unavailable [phone] Matt Ulrich MD Unavailable [phone] Eze Brock Unavailable Annette Walker Unavailable [phone] Batool Celis MD Unavailable [phone] Reason for Visit * Reason Onset Date Comments Patient Question 01/28/2025 question about test result Encounter Details Date Type Department Care Team (Late st Contact Info) Description 01/28/2025 Telephone [facility] Medical Oncology [place], [place] [address] Tacho Echavarria MD [address] [place] [address] [id number] Patient Question (question about test result ) [...] 11/07/2023 [facility] Utilities Answer Date Recorded In the past [...] often do you attend chur ch or hindu services? 1 to 4 times per year [...] Date Recorded PHQ-2 Total Score 5 07/07/2024 [facility] of Occupat ional Health [...] any time in the past 12 m [facility], were you homeless or living in a senior living (including now)? No 11/07/2023 [facility] IP Transportation Answer D ate Recorded In [...] results are in and forwarded to . Sano message sent to patient, no need to move appt up sooner at this time. * Telephone Encounter - Sendy Waddell NA - 01/28/2025 10:43 AM EDT Reason for call: [facility], said it was something to do withDNA and what medications to take. Said she was unable to read results and was calling to see if anything needed to be done or if she was ok to wait until her appt. Preferred call back number: [phone] documented in this encounter Plan of Treatment Upcoming Encounters Date Type Department Care Team (Late st Contact Info) Description 03/02/2025 11:40 AM EDT Office Visit [facility] [place] [address] [place] [address] [place] [address] [place] [address] 03/02/2025 12:45 PM EDT Procedure visit [facility] [address] [place] [address] Samm Ledesma, BILLING AND ACCOUNTING STAFF ASSISTANT [address] [facility] 100 [place] [address] 03/10/2025 12:30 PM EDT Appointment [facility] [place], [place] [phone] 03/10/2025 1:00 PM EDT Appointment [facility] [place] [address] Tacho Echavarria MD [address] [place] [address] [phone] 04/29/2025 9:15 AM EDT Appointment [facility] RAD ONC [place], [place] [phone] Batool Celis MD [address] [place] [address] 05/19/2025 2:15 PM EST Office Visit [address] [address] Sin Tran MD [address] [place] [address] 08/12/2025 10:40 AM EST Appointment [facility] Women's Wellness [facility] [place] [address] Matt Ulrich MD [address] [place] [address] documented as of this encounter Goals Goal [...] documented as of this encounter Care Teams Telesales Specialist Relationship Specialty [place] [address] [place] [address] PCP - General 06/21/10 Arlyn Schmidt MD [address] [place] [address] Consulting Physician Internal Medicine-Endocrinology, Diabetes & Metabolism 11/28/20 Tacho Echavarria MD 1 [place] [address] Internal Medicine-Medical Oncology 11/12/23 Matt Ulrich MD 1 [place] [address] Surgery-Surgical Oncology 12/04/23 Eze Brock Pastoral Care 12/13/23 Annette Walker MSW Mapping Editor 05/13/24 Batool Celis MD [address] [place] [address] [place] [address] Radiation Oncologist Radiology-Radiation Oncology 06/08/24 documented as of this encounter
--- OUTSIDE RECORDS SUMMARY | 2025-02-19 12:40 | XMS_ITS | Encounter Summary ---
Author Organization [place] [address] Care Team Providers Care Staff Sonographer Name Role Phone Chetna Cedeno MD Primary Care Provider [phone] Arlyn Schmidt MD Unavailable [phone] Tacho Echavarria MD Unavailable [phone] Matt Ulrich MD Unavailable [phone] Eze Brock Unavailable Annette Walker Unavailable [phone] Batool Celis MD Unavailable [phone] Reason for Visit * Reason Comments Medication Refill Encounter Details Date Type Department Care Team (Late st Contact Info) Description 01/15/2025 Refill [facility] [place] [address] [place] [address] [place] [address] [place] [address] Medication Refill Social History Tobacco [...] your doctor or pharmacy? Never 11/07/2023 [facility] Utilities Answer Date Recorded In [...] any time in the past 12 m [facility], were you homeless or living in a nursing home (including now)? No 11/07/2023 [facility] IP Transportation Answer D [...] 11:40 AM EDT Office Visit [facility] [address] [place] [address] [place] [address] [place] [address] 03/02/2025 12:45 PM EDT Procedure visit [facility] [address] [facility] [address] [place] [address] Samm Ledesma, ASSISTANT DIRECTOR OF ADMISSIONS [address] [facility] [address] [place] [address] 03/10/2025 12:30 PM EDT Appointment [facility] [address] 03/10/2025 1:00 PM EDT Appointment [facility] [place] [address] Tacho Echavarria MD [address] [place] [address] 04/29/2025 9:15 AM EDT Appointment [facility] [place] [phone] Batool Celis MD [address] [facility] [place] [address] 05/19/2025 2:15 PM EST [facility] [address] [place] [address] [address] [facility] 1[address] [place] [address] Sin Tran MD [address] [place] [address] [place] [address] 08/12/2025 10:40 AM EST Appointment [facility] Women's Wellness [facility] Emilee Solomon [facility] Matt Ulrich MD 20 [facility] 254 [place] [address] documented as of this encounter Goals Goal [...] documented as of this encounter Care Teams Staff Sonographer Relationship Specialty [place] [address] [address] [facility] [place] [address] PCP - General 06/21/10 Arlyn Schmidt MD [address] [place], [place] 40[address] Consulting Physician Internal Medicine-Endocrinology, Diabetes & Metabolism 11/28/20 Tacho Echavarria MD 1 [place] [address] Internal Medicine-Medical Oncology 11/12/23 Matt Ulrich MD 1 [place], [place] 8[address] Surgery-Surgical Oncology 12/04/23 Eze Brock Pastoral Care 12/13/23 Annette Walker, DEALMAKER Feller Operator 05/13/24 Batool Celis MD 1 [facility] [place] [address] Radiation Oncologist Radiology-Radiation Oncology 06/08/24 documented as of this encounter
--- OUTSIDE RECORDS SUMMARY | 2025-02-19 12:40 | XMS_ITS | Clinical Summary ---
Author Organization [facility] Address [address] [place] [address] Phone Care Team Providers Care Backroom Associate Name Role Phone Chetna Cedeno MD Primary Care Provider [phone] Allergies Active Allergy Reactions Criticality Noted Date [...] EDT - 01/02/2025 7:27 PM EDT [facility] [address] [place] [address] Dallin Espinoza MD Heat exhaustion, [...] (ABNORMAL) BAMP (Na,K,Cl,CO2,Glu,BUN,Creat,Ca) (01/02/2025 5:13 PM EDT) [facility] BLD UREA NITROGEN 16 8 - 26 mg/dL CHEMISTRY FIRESTONE SODIUM 140 135 - 145 mmol/L CHEMISTRY FIRESTONE POTASSIUM 3.2(L) 3.6 - 5.1 mmol/L CHEMISTRY FIRESTONE CHLORIDE 107 98 - 111 mmol/L CHEMISTRY FIRESTONE CO2 20(L) 21 - 31 mmol/L CHEMISTRY FIRESTONE GLUCOSE, RANDOM 89 70 - 99 mg/dL CHEMISTRY FIRESTONE CREATININE 1.06 0.60 - 1.20 mg/dL CHEMISTRY FIRESTONE ANION GAP 13 4 - 16 mmol/L CHEMISTRY FIRESTONE CALCIUM 9.0 8.5 - 10.4 mg/dL CHEMISTRY FIRESTONE ESTIMATED GFR 61 >59 mL/min/1.7 3 m2 CHEMISTRY FIRESTONE Comment: Estimated GFR was calculated using the CKD-EPI cr (2020) equation refit without race. The equation is recommended by the National Kidney Foundation - [place] Society of Nephrology Task Force. Tested at [place] [id number] Whole Blood 01/02/2025 5:13 PM EDT 01/02/2025 5:25 PM EDT Dallin Espinoza MD LAB BLOOD ORDERABLES Final Result [facility] [address] [place] [address] [place] [address] * (ABNORMAL) CBC w/ Diff (01/02/2025 5:13 PM EDT) [facility] WBC 7.1 3.6 - 10.5 THOU/[facility] CHEMISTRY FIRESTONE RBC 3.75(L) 3.80 - 5.20 MIL/mcL CHEMISTRY FIRESTONE HEMOGLOBIN 11.2(L) 12.0 - 15.2 g/dL CHEMISTRY FIRESTONE HEMATOCRIT 33.6(L) 36 - 46 % CHEMISTRY FIRESTONE MCV 89.6 82 - 97 fL CHEMISTRY FIRESTONE MCH 30.0 27 - 33 pg CHEMISTRY FIRESTONE MCHC 33.5 32 - 36 g/dL CHEMISTRY FIRESTONE RDW 16.0 12.3 - 17.0 % CHEMISTRY FIRESTONE PLATELET 206 140 - 375 THOU/mcL CHEMISTRY FIRESTONE MPV 6.9(L) 7.0 - 11.5 fL CHEMISTRY FIRESTONE ABS. NEUTROPHIL 3.60 1.80 - 7.70 THOU/mcL CHEMISTRY FIRESTONE ABS LYMPHS 3.00 1.00 - 4.00 THOU/mcL CHEMISTRY FIRESTONE ABS MONOS 0.30 0.20 - 0.90 THOU/mcL CHEMISTRY FIRESTONE ABS EOS 0.10 0.03 - 0.45 THOU/mcL CHEMISTRY FIRESTONE ABS BASOS 0.10 0.00 - 0.20 THOU/mcL CHEMISTRY FIRESTONE SEGS 51 % CHEMISTRY FIRESTONE LYMPHOCYTES 43 % CHEMISTR Y NORTH MONOCYTES 4 % CHEMISTRY FIRESTONE EOSINOPHIL 1 % CHEMISTRY FIRESTONE BASOPHILS 1 % CHEMISTRY FIRESTONE Comment:Tested at [facility] [address] [facility] [address] Whole Blood 01/02/2025 5:13 PM EDT 01/02/2025 5:25 PM EDT us Dallin Espinoza MD LAB BLOOD ORDERABLES Final Result [facility] [address] [place] [address] [facility] [address] [place] [address] * ECG 12 lead (01/02/2025 4:37 PM [...] QTcF 417 ms TH TRACEMASTER QRS Horizontal [place] -19 deg TH TRACEMASTER QRS AXIS 16 deg TH TRACEMASTER I-40 Horizontal [place] 46 deg TH TRACEMASTER I-40 FRONT AXIS -17 deg TH TRACEMASTER T-40 Horizontal [place] -50 deg TH TRACEMASTER T-40 Front [place] 51 deg TH TRACEMASTER T Horizontal [place] 52 deg TH TRACEMASTER T WAVE AXIS 16 deg TH TRACEMASTER S-T Horizontal [place] 60 deg TH TRACEMASTER S-T Front [place] 24 deg TH TRACEMASTER ECG IMPRESSION - BORDERLINE ECG - TH TRACEMASTER ECG IMPRESSION SR-Sinus rhythm-normal P axis, V-rate 50-99 TH TRACEMASTER ECG IMPRESSION LVHVP-Probable left ventricular hypertrophy-mul tiple LVH criteria TH TRACEMASTER ECGGUID [id number] TH TRACEMASTER 01/02/2025 4:37 PM EDT us Dallin Espinoza MD ECG ORDERABLES Final Resu lt TH TRACEMASTER from Last [address] [facility] MEDICAID Care Teams Backroom Associate Relationship Specialty Start Date End Date Chetna Cedeno MD [facility] [address] [place] [address] PCP - General Family Medicine 01/02/25
--- OUTSIDE RECORDS SUMMARY | 2025-02-19 12:40 | XMS_ITS | Encounter Summary ---
Author Organization [place] [address] Care Team Providers Care Information Technology Teacher Name Role Phone Chetna Cedeno MD Primary Care Provider [phone] Arlyn Schmidt MD Unavailable [phone] Tacho Echavarria MD Unavailable [phone] Matt Ulrich MD Unavailable [phone] Eze Brock Unavailable Annette Walker FINANCIAL MARKET DEALER Unavailable [phone] Batool Celis MD Unavailable [phone] Encounter Details Date Type Department Care Team (Late st Contact Info) Description 01/29/2025 Social Work [facility] Cancer Care [facility] [place] [address] Sonny Fleming, FINANCIAL MARKET DEALER Social History Tobacco Use Types Packs/Day Years [...] th e electric, gas, oil, or water [employer] threatened to shut off services in [...] PHQ-2 Total Score 5 07/07/2024 [facility] [place] of Occupat ional Health - Occupational Stress [...] in a chcf (including now)? No 11/07/2023 [facility] IP Transportation Answer [...] - 01/29/2025 3:12 PM EDT 01/29/25 1511 Nutrition Worker Assessment Referred By phone call Disease/[place] Site Tubing Machine Operator Assignment Breast cancer Referral Location: [facility] Reason for Referral transportation Identified Needs Adjustment to illness;Transportation Social Work Interventions Transportation;Brief Couseling/Support;Education/Information FARHAD Romo received a call from pt stating that she is in need of a waiver for transportation from her health insurance as she is not feeling well enough to drive to her appointments. [facility] followed up with MAGAN Reid to discuss [...] 11:40 AM EDT Office Visit [facility]ERR[facility] [address] [place] [address] [place] [address] [place] [address] 03/02/2025 12:45 PM EDT Procedure visit [facility] [address] [place] [address] Samm Ledesma, CEO & BOARD DIRECTOR [address] [address] [place] [address] 03/10/2025 12:30 PM EDT Appointment [facility] [place], [place] [id number] 03/10/2025 1:00 PM EDT Appointment Cancer Care Medical Oncology [place], [place] 1855917 Tacho Echavarria MD [address] [place] [address] [id number] 04/29/2025 9:15 AM EDT Appointment [facility] [place] [address] Batool Celis MD [address] [place] [address] [place] [address] 05/19/2025 2:15 PM EST Office Visit [address] [address] Sin Tran MD [address] [place] [address] 08/12/2025 10:40 AM EST Appointment [facility] Women's Wellness [facility] [place] [address] Matt Ulrich MD [address] [place] [address] [address] [place] [address] documented as of this encounter Goals Goal [...] as of this encounter Care Teams Information Technology Teacher Relationship Specialty [place] [address] [place] [address] PCP - General 06/21/10 Arlyn Schmidt MD [address] [place] [id number] Consulting Physician Internal Medicine-Endocrinology, Diabetes & Metabolism 11/28/20 Tahco Echavarria MD 1 [place] [address] Internal Medicine-Medical Oncology 11/12/23 Matt Ulrich MD 1 [place] [address] Surgery-Surgical Oncology 12/04/23 Eze Brock Pastoral Care 12/13/23 Annette Walker MSW Tubing Machine Operator 05/13/24 Batool Celis MD [address] [place] [address] [place] [address] Radiation Oncologist Radiology-Radiation Oncology 06/08/24 documented as of this encounter
--- OUTSIDE RECORDS SUMMARY | 2025-02-19 12:40 | XMS_ITS | Encounter Summary ---
Author Organization [place] [address] Care Team Providers Care Accounts Receivable Specialist Name Role Phone Chetna Cedeno MD Primary Care Provider [phone] Arlyn Schmidt MD Unavailable [phone] Tacho Echavarria MD Unavailable [phone] Matt Ulrich MD Unavailable [phone] Eze Brock Unavailable Annette Walker Unavailable [phone] Batool Celis MD Unavailable [phone] Reason for Referral * Genetic Lab Test (Routine) - Authorization Not Needed Specialty Diagnoses / Procedures Referred By Contac t Referred To Contact Lab Diagnoses 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) Procedures PHARMACOGENOMIC PANEL Aury Delgado MD 1 [place] [address] Phone: tel: fax: Referral ID Status Reason Start Date Expiration Date Visits Requested Visits Authorized [id number] Authorization Not Needed 01/21/2025 01/21/2026 1 1 Encounter Details Date Type Department Care Team (Late st Contact Info) Description 01/21/2025 Orders Only [facility] 1 [place] [address] Osvaldo Johnson, Clerical Staff Invasive ductal carcinoma [...] Date Recorded PHQ-2 Total Score 5 07/07/2024 [facility] [place] of Occupat ional Health - Occupational Stress [...] in a residential (including now)? No 11/07/2023 [facility] IP Transportation Answer D ate [...] 11:40 AM EDT Office Visit [facility] [address] [place] [address] [place] [address] [place] [address] 03/02/2025 12:45 PM EDT Procedure visit [facility] [address] [place] [address] Samm Ledesma, BUSINESS OPERATIONS CONSULTANT [address] [place] [address] 03/10/2025 12:30 PM EDT Appointment [place] [address] 03/10/2025 1:00 PM EDT Appointment Cancer Care Medical Oncology [place], [place] [phone] Tcaho Echavarria MD [address] [place] [id number] 04/29/2025 9:15 AM EDT Appointment [facility] [place] [address] Batool Celis MD [address] [place] [address] 05/19/2025 2:15 PM EST Office Visit [facility] [address] [place] [address] Sin Tran MD [address] [place] [address] 08/12/2025 10:40 AM EST Appointment [facility] Women's Wellness [place] [facility] [address] Matt Ulrich MD 20 [place] [address] documented as of this encounter Goals Goal [...] developed, and its performance characteristics determined by [employer], a clinical laboratory located at [address] [place] [address]. These tests have not been cleared or approved by the U.S. Food and Drug Administration. The FDA does not require this test to go through premarket FDA review. [employer] is certified under CLIA-88 and accredited by the College [employer] as qualified to perform high-complexity testing. This test is approved for clinical use by the [facility] Department of [facility]. This test should not be regarded as investigational or for research. *Genomic DNA was analyzed by PCR using [employer]Man and/or [employer] BHQ probe-based methods to interrogate the variant [...] are associated with more than one haplotype, [employer] infers and reports the most likely diplotype [...] Clara through the website or by calling [phone]. Blood 01/06/2025 01/22/2025 Narrative [facility] - 01/27/2025 This result has genomic variants that were not included in this document. 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)- Primary documented in this encounter Additional Health Concerns Assessment Noted Time PHQ-9 Depression Total Score: 17 024 8:39 AM EST PHQ-2 Depression Total Score: 5 07/07/20 24 8:39 AM EST documented as of this encounter Care Teams Accounts Receivable Specialist Relationship Specialty [place] [address] [place] [address] PCP - General 06/21/10 Arlyn Schmidt MD [address] [place] [address] Consulting Physician Internal Medicine-Endocrinology, Diabetes & Metabolism 11/28/20 Tacho Echavarria MD 1 [place] [phone] Internal Medicine-Medical Oncology 11/12/23 Matt Ulrich MD 1 [place] [phone] Surgery-Surgical Oncology 12/04/23 Eze Brock Pastoral Care 12/13/23 Annette Walker, AIRPORT OPERATIONS OFFICER Pediatric Surgeon 05/13/24 Batool Celis MD 1 [facility] [address] Radiation Oncologist Radiology-Radiation Oncology 06/08/24 documented as of this encounter
--- OUTSIDE RECORDS SUMMARY | 2025-02-19 12:40 | XMS_ITS | Encounter Summary ---
Author Organization [place] [address] Care Team Providers Care Manufacturing Electrician Name Role Phone Chetna Cedeno MD Primary Care Provider [phone] Arlyn Schmidt MD Unavailable [phone] Tacho Echavarria MD Unavailable [phone] Matt Ulrich MD Unavailable [phone] Eze Brock Unavailable Annette Walker Unavailable [phone] Batool Celis MD Unavailable [phone] Encounter Details Date Type Department Care Team (Late st Contact Info) Description 01/28/2025 Orders Only Cancer Care Medical Oncology [place], [place] 7[address] Tacho Echavarria MD [address] [place] [address] [phone] Invasive ductal carcinoma of breast, female, right [...] your doctor or pharmacy? Never 11/07/2023 [facility] Utilities Answer Date Recorded In [...] 5 07/07/2024 [facility] [place] of Occupat ional Health - Occupational Stress [...] any time in the past 12 m [facility], were you homeless or living in a half-way (including now)? No 11/07/2023 [facility] IP Transportation Answer D ate [...] 11:40 AM EDT Office Visit [facility] [address] [place] [address] [place] [address] [place] [address] 03/02/2025 12:45 PM EDT Procedure visit [facility] [address] [place] [phone] Samm Ledesma, RISK INVESTIGATOR [address] [facility] [facility] [address] [place], [place] [phone] 03/10/2025 12:30 PM EDT Appointment [facility] [place], [place] [phone] 03/10/2025 1:00 PM EDT Appointment [facility] Care Medical Oncology [place], [place] [phone] Tacho Echavarria MD [address] [place] [address] [phone] 04/29/2025 9:15 AM EDT Appointment [facility] RAD ONC [place], [place] [phone] Batool Celis MD [address] [place] [address] 05/19/2025 2:15 PM EST Office Visit [place] [phone] [facility] [address] [place] [address] Sin Tran MD [facility] [place] [address] 08/12/2025 10:40 AM EST Appointment [facility] Women's Wellness [place] [facility] [place] [address] Matt Ulrich MD [address] [place] [address] [address] [place] [address] documented as of this encounter [...] pg/mL 02/04/2025 4:31 PM EDT [facility] [employer] [place] Folate 6.16 >=4.80 ng/mL 02/04/2025 4:31 PM EDT [facility] [employer] [employer] Blood VENOUS BLOOD / Unknown Venipuncture / Unknown 02/04/2025 2:03 PM EDT 02/04/2025 2:03 PM EDT Narrative [facility]REFERR[facility] - 02/04/2025 4:31 PM EDT Ingestion of haroon doses of biotin (>5 mg/day) taken within 8 hours of drawing blood sample can interfere with this immunoassay test. Tacho Echavarria MD CHEMISTRY ORDERABLES Final Result [facility] [address] [facility] , [place] [address] * (ABNORMAL) CBC WITH DIFF (02/04/2025 2:03 PM EDT) WBC 8.1 3.7 - 10.3 x10(3)/mc L 02/04/2025 2:07 PM EDT [facility] RBC 2.95(L) 3.90 - 5.20 x10(6)/mc L 02/04/2025 2:07 PM EDT [facility] Hgb 9.4(L) 11.2 - 15.7 g/dL 02/04/2025 2:07 PM EDT [facility] Hct 28.1(L) 34.0 - 45.0 % 02/04/2025 2:07 PM EDT [facility] MCV 95.3 80.0 - 100.0 fL 02/04/2025 2:07 PM EDT [facility] MCH 31.9 26.0 - 34.0 pg 02/04/2025 2:07 PM EDT [facility] MCHC 33.5 30.7 - 35.5 g/dL 02/04/2025 2:07 PM EDT [facility] RDW 15.0(H) <=14.9 % 02/04/2025 2:07 PM EDT [facility] Platelet 163 155 - 369 x10(3)/mc L 02/04/2025 2:07 PM EDT [facility] MPV 8.8 8.8 - 12.5 fL 02/04/2025 2:07 PM EDT [facility] Neut # Prelim 5.6 1.6 - 6.1 x10(3)/mc L 02/04/2025 2:07 PM EDT [facility] Comment:Preliminary automate d absolute neutrophil count. Value may change if manual differential is indicated. Neut Percent 68.4 % 02/04/2025 2:07 PM EDT [facility] Comment:Neutrophils equals s egs plus bands Imm Gran% 0.2 % 02/04/2025 2:07 PM EDT [facility] Comment:Automated count of m etamyelocytes, myelocytes and promyelocytes. Lymph Percent 23.4 % 02/04/2025 2:07 PM EDT [facility] [place] Percent 5.7 % 02/04/2025 2:07 PM EDT [facility] Eos Percent 2.1 % 02/04/2025 2:07 PM EDT [facility] Baso Percent 0.2 % 02/04/2025 2:07 PM EDT [facility] Neut # 5.6 1.6 - 6.1 x10(3)/mc L 02/04/2025 2:07 PM EDT [facility] Comment:Neutrophils equals s egs plus bands IMMGRAN# 0.0 0.0 - 0.1 x10(3)/mc L 02/04/2025 2:07 PM EDT [facility] Comment:Automated count of m etamyelocytes, myelocytes and promyelocytes. An absolute IG <0.1 is reported as 0.0. Lymph # 1.9 1.2 - 3.9 x10(3)/mc L 02/04/2025 2:07 PM EDT [facility] [place] # 0.5 0.3 - 0.9 x10(3)/mc L 02/04/2025 2:07 PM EDT [facility] Eos# 0.2 0.0 - 0.5 x10(3)/mc L 02/04/2025 2:07 PM EDT [facility] Baso # 0.0 0.0 - 0.1 x10(3)/mc L 02/04/2025 2:07 PM EDT [facility] Blood VENOUS BLOOD / Unknown Venipuncture / Unknown 02/04/2025 2:03 PM EDT 02/04/2025 2:03 PM EDT us Tacho Echavarria MD HEMATOLOGY ORDERABLES Final Result Performing Organization Address [facility]/ZIP Co de Phone Number [facility] [address] [place] [phone] * IRON+TIBC (02/04/2025 2:02 PM EDT) Pathologist [facility] Iron 82 30 - 160 mcg/dL 02/04/2025 2:59 PM EDT [facility] Transferrin 279 200 - 360 mg/dL 02/04/2025 2:59 PM EDT [facility] Saturation 21 20 - 50 % 02/04/2025 2:59 PM EDT [facility] TIBC 391 250 - 400 mcg/dL 02/04/2025 2:59 PM EDT [facility] Blood VENOUS BLOOD / Unknown Venipuncture / Unknown 02/04/2025 2:02 PM EDT 02/04/2025 2:02 PM EDT us Tacho Echavarria MD CHEMISTRY ORDERABLES Final Result Performing Organization Address [facility]/ZIP Co de Phone Number [facility] 1 [place] [address] [facility] [address] [facility], [place] [address] * (ABNORMAL) COMPREHENSIVE METABOLIC PANEL (02/04/2025 2:02 PM EDT) Pathologist [facility] Sodium 142 136 - 145 mmol/L 02/04/2025 2:28 PM EDT [facility] Potassium 3.3(L) 3.5 - 5.0 mmol/L 02/04/2025 2:28 PM EDT [facility] Chloride 108(H) 98 - 107 mmol/L 02/04/2025 2:28 PM EDT [facility] Total CO2 19(L) 22 - 29 mmol/L 02/04/2025 2:28 PM EDT [facility] Anion Gap 15 7 - 16 mmol/L 02/04/2025 2:28 PM EDT [facility] Calcium 8.6 8.6 - 10.4 mg/dL 02/04/2025 2:28 PM EDT [facility] Glucose Lvl 134(H) 70 - 99 mg/dL 02/04/2025 2:28 PM EDT [facility] BUN 12 6 - 20 mg/dL 02/04/2025 2:28 PM EDT [facility] Creatinine 0.78 0.51 - 1.30 mg/dL 02/04/2025 2:28 PM EDT [facility] Albumin 3.8 3.5 - 5.2 gm/dL 02/04/2025 2:28 PM EDT [facility] Total Protein 6.0(L) 6.4 - 8.3 gm/dL 02/04/2025 2:28 PM EDT [facility] Bili Total 0.3 0.2 - 1.3 mg/dL 02/04/2025 2:28 PM EDT [facility] ALT 8 <=41 U/L 02/04/2025 2:28 PM EDT [facility] AST 12 <=40 U/L 02/04/2025 2:28 PM EDT [facility] Alk Phos 95 36 - 123 U/L 02/04/2025 2:28 PM EDT [facility] eGFR (CKD-EPIcr 2020) 88 >=60 mL/min/1.7 3 m2 02/04/2025 2:28 PM EDT [facility] Comment:Estimated GFR was ca lculated using the CKD-EPIcr (2020) equation refit without race. The equation is recommended by the National Kidney Foundation - [employer] Society of Nephrology Task Force. Blood VENOUS BLOOD / Unknown Venipuncture / Unknown 02/04/2025 2:02 PM EDT 02/04/2025 2:02 PM EDT Tacho Echavarria MD CHEMISTRY ORDERABLES Final Result [facility] 1 [place] [phone] documented in this encounter Visit Diagnoses Diagnosis Invasive ductal carcinoma of breast, female, right (HCC)- Primary documented in this encounter Additional Health Concerns Assessment Noted Time PHQ-9 Depression Total Score: 17 024 8:39 AM EST PHQ-2 Depression Total Score: 5 07/07/20 24 8:39 AM EST documented as of this encounter Care Teams Manufacturing Electrician Relationship Specialty [place] [address] [place] [address] PCP - General 06/21/10 Arlyn Schmidt MD [address] [place], [place] [phone] Consulting Physician Internal Medicine-Endocrinology, Diabetes & Metabolism 11/28/20 Tacho Echavarria MD 1 [place], [place] [id number] Internal Medicine-Medical Oncology 11/12/23 Matt Ulrich MD 1 [place], [place] [id number] Surgery-Surgical Oncology 12/04/23 Eze Brock Pastoral Care 12/13/23 Annette Walker, ARACELI Dampener 05/13/24 Batool Celis MD [address] [facility] [place] [address] Radiation Oncologist Radiology-Radiation Oncology 06/08/24 documented as of this encounter
--- OUTSIDE RECORDS SUMMARY | 2025-02-19 12:40 | XMS_ITS | Encounter Summary ---
Author Organization [place] [address] Care Team Providers Care Manager Electrical Name Role Phone Chetna Cedeno MD Primary Care Provider [phone] Arlyn Schmidt MD Unavailable [phone] Tacho Echavarria MD Unavailable [phone] Matt Ulrich MD Unavailable [phone] Eze Brock Unavailable Annette Walker Unavailable [phone] Batool Celis MD Unavailable [phone] Encounter Details Date Type Department Care Team (Late st Contact Info) Description 01/18/2025 Telephone Cancer Care Medical Oncology [place], [place] [phone] Tacho Echavarria MD [address] [place] [address] [phone] Social History Tobacco Use Types Packs/Day Years [...] PHQ-2 Total Score 5 07/07/2024 [facility] [place] of Occupat ional Health - Occupational Stress [...] in a retirement (including now)? No 11/07/2023 [facility] IP Transportation Answer D ate [...] her apartment. Letter created and sent through [employer] documented in this encounter Plan of Treatment Upcoming Encounters Date Type Department Care Team (Late st Contact Info) Description 03/02/2025 11:40 AM EDT Office Visit [facility] MERRITT [address] [place] [address] [place] [address] [place] [address] 03/02/2025 12:45 PM EDT Procedure visit [facility] [address] [place] [address] Samm Ledesma APRN [address] [place] [address] 03/10/2025 12:30 PM EDT Appointment [place] [address] 03/10/2025 1:00 PM EDT Appointment [facility] [place] [address] Tacho Echavarria MD 1 [place] [address] 04/29/2025 9:15 AM EDT Appointment [facility] [place] [address] Batool Celis MD [address] [facility] [place] [address] 05/19/2025 2:15 PM EST Office Visit [facility] [address] [place] [address] [address] [place] [address] Sin Tran MD [address] [place] [address] 08/12/2025 10:40 AM EST Appoint[facility] Women's Wellness [facility] [place] [address] Matt Ulrich MD [address] [facility] [address] [place] [address] documented as of this encounter Goals Goal [...] as of this encounter Care Teams Manager Electrical Relationship Specialty [place] [address] [place] [address] PCP - General 06/21/10 Arlyn Schmidt MD [facility] [address] [place], [place] [phone] Consulting Physician Internal Medicine-Endocrinology, Diabetes & Metabolism 11/28/20 Tacho Echavarria MD [address] [place] [address] Internal Medicine-Medical Oncology 11/12/23 Matt Ulrich MD [address] [place] [address] Surgery-Surgical Oncology 12/04/23 Eze Brock Pastoral Care 12/13/23 Annette Walker MSW Casing Tester 05/13/24 Batool Celis MD [address] [place] [address] [place] [address] Radiation Oncologist Radiology-Radiation Oncology 06/08/24 documented as of this encounter
--- OUTSIDE RECORDS SUMMARY | 2025-02-19 12:40 | XMS_ITS | Encounter Summary ---
Author Organization [place] [address] Care Team Providers Care Permit Coordinator Name Role Phone Chetna Cedeno MD Primary Care Provider [phone] Arlyn Schmidt MD Unavailable [phone] Tacho Echavarria MD Unavailable [phone] Matt Ulrich MD Unavailable [phone] Eze Brock Unavailable Annette Walker Unavailable [phone] Batool Celis MD Unavailable [phone] Reason for Visit * Reason Comments Medication Refill Encounter Details Date Type Department Care Team (Late st Contact Info) Description 01/15/2025 Refill [facility] [address] [facility] [facility] [address] [place] [address] Samm Ledesma, CLAY TEMPERER [address] [facility] [address] [place] [address] Medication Refill Social History Tobacco Use Types [...] a care home (including now)? No 11/07/2023 [facility] IP Transportation Answer D ate [...] 11:40 AM EDT Office Visit ROMULO Mahmood [address] [place] [address] [place] [address] [place] [address] 03/02/2025 12:45 PM EDT Procedure visit [facility] [address] [facility] [facility] [address] [place] [address] Samm Ledesma APRN [address] [facility] [address] [place] [address] 03/10/2025 12:30 PM EDT Appointment [facility] [place], [place] [id number] 03/10/2025 1:00 PM EDT [facility]ointment [facility] [place] [address] Tacho Echavarria MD [address] [place] [address] 04/29/2025 9:15 AM EDT Appointment [facility] RAD ONC [place], [place] [phone] Batool Celis MD [address] [place] [address] [place] [address] 05/19/2025 2:15 PM EST Office Visit [address] [address] Sin Tran MD [address] [place] [address] 08/12/2025 10:40 AM EST Appointment [facility] Women's Wellness [facility] [place] [address] Matt Ulrich MD [address] [place] [address] documented as of this encounter Goals Goal [...] documented as of this encounter Care Teams Permit Coordinator Relationship Specialty [place] [address] [place] [address] PCP - General 06/21/10 Arlyn Schmidt MD [address] [place] [address] Consulting Physician Internal Medicine-Endocrinology, Diabetes & Metabolism 11/28/20 Tacho Echavarria MD 1 [place], [place] 2964817 Internal Medicine-Medical Oncology 11/12/23 Matt Ulrich MD 1 [place] [address] Surgery-Surgical Oncology 12/04/23 Eze Brock Pastoral Care 12/13/23 Annette Walker MSW General Counselor 05/13/24 Batool Celis MD 1 [facility] [place] [address] Radiation Oncologist Radiology-Radiation Oncology 06/08/24 documented as of this encounter
--- OUTSIDE RECORDS SUMMARY | 2025-02-19 12:40 | XMS_ITS | Encounter Summary ---
Author Organization [place] [address] Care Team Providers Care Tube Operator Name Role Phone Chetna Cedeno MD Primary Care Provider [phone] Arlyn Schmidt MD Unavailable [phone] Tacho Echavarria MD Unavailable [phone] Matt Ulrich MD Unavailable [phone] Eze Brock Unavailable Annette Walker Unavailable [phone] Batool Celis MD Unavailable [phone] Reason for Visit * Reason Comments Oncology Nurse Navigation Encounter Details Date Type Department Care Team (Late st Contact Info) Description 01/29/2025 Patient Outreach [facility] CAN[facility]ER CR TUMOR BD [place], [place] [address] Shilpa Cline, RN Oncology Nurse Navigation Social [...] th e electric, gas, oil, or water [employer] threatened to shut off services in your [...] Date Recorded PHQ-2 Total Score 5 07/07/2024 [facility] [place] of Occupat ional Health - Occupational Stress [...] retirement (including now)? No 11/07/2023 [facility] IP Transportation Answer D ate [...] 11:40 AM EDT Office Visit ROMULO MERRITT [address] [place] [address] [place] [address] [place] [address] 03/02/2025 12:45 PM EDT Procedure visit [facility] NE[facility]OLOG[facility]ECT[facility] [address] [facility] [address] [place] [address] Samm Ledesma APRN [address] [facility] [address] [place] [address] 03/10/2025 12:30 PM EDT Appointment [place] [address] 03/10/2025 1:00 PM EDT Appointment [facility] [place] [address] Tacho Echavarria MD [address] [place] [address] 04/29/2025 9:15 AM EDT Appointment [facility] [address] Batool Celis MD 1 [facility] [place] [address] 05/19/2025 2:15 PM EST Office Visit [facility] [address] [place] [address] [address] [facility] 1D [place] [address] Sin Tran MD [address] [place] [address] 08/12/2025 10:40 AM EST Appointment [facility] Women's Wellness [facility] [place] [address] Matt Ulrich MD [address] [place] [address] 254 [place] [address] documented as of this encounter Goals Goal [...] documented as of this encounter Care Teams Tube Operator Relationship Specialty [place] [address] [place] [address] PCP - General 06/21/10 Arlyn Schmidt MD [address] [place] [address] Consulting Physician Internal Medicine-Endocrinology, Diabetes & Metabolism 11/28/20 Tacho Echavarria MD 1 [place], [place] [phone] Internal Medicine-Medical Oncology 11/12/23 Matt Ulrich MD 1 [place] [address] Surgery-Surgical Oncology 12/04/23 Eze Brock Pastoral Care 12/13/23 Annette Walker MSW Manager Utilities 05/13/24 Batool Celis MD 1 [facility] [place] [address] Radiation Oncologist Radiology-Radiation Oncology 06/08/24 documented as of this encounter
--- OUTSIDE RECORDS SUMMARY | 2025-02-19 12:40 | XMS_ITS | Encounter Summary ---
Author Organization [place] [address] Care Team Providers Care Tank Riveter Name Role Phone Chetna Cedeno MD Primary Care Provider [phone] Arlyn Schmidt MD Unavailable [phone] Tacho Echavarria MD Unavailable [phone] Matt Ulrich MD Unavailable [phone] Eze Brock Unavailable Annette Walker Unavailable [phone] Batool Celis MD Unavailable [phone] Reason for Visit * Reason Onset Date Comments Symptom Call 01/29/2025 Diarrhea, body a ches, vomiting Encounter Details Date Type Department Care Team (Late st Contact Info) Description 01/29/2025 Telephone [facility] Medical Oncology [place], [place] [phone] Tacho Echavarria MD [address] [place] [address] [phone] Symptom Call (Diarrhea, body aches, vomiting) Social [...] Score 5 07/07/2024 [facility] [place] of Occupat ional Health - Occupational Stress [...] any time in the past 12 m [facility], were you homeless or living in a [place] health care facility (including now)? No 11/07/[address] [facility] IP Transportation Answer D ate [...] can make it all the way to [facility] without being sick. She will call [...] the Patient seen at:[facility] Preferred call back number:[phone] RN is aware documented in this encounter Plan of Treatment Upcoming Encounters Date Type Department Care Team (Late st Contact Info) Description 03/02/2025 11:40 AM EDT Office Visit [facility] [address] [place] [address] [place] [address] [place] [address] 03/02/2025 12:45 PM EDT Procedure visit [facility] NEUROLOGY [facility]ECTOR [address] [facility] [address] [place] [address] Samm Ledesma APRN [address] [facility] [address] [place] [address] 03/10/2025 12:30 PM EDT Appointment [facility] [place], [place] [id number] 03/10/2025 1:00 PM EDT Appointment [facility] Medical Oncology [place], [place] 7107517 Tacho Echavarria MD [address] [place] [address] 04/29/2025 9:15 AM EDT Appointment [facility] RAD ONC [place] [phone] Batool Celis MD [address] [facility] [place] [address] 05/19/2025 2:15 PM EST Office Visit [facility] [address] [place] [address] 1[address] [place] [address] Sin Tran MD [address] [place] [address] 08/12/2025 10:40 AM EST Appointment [facility] Women's Wellness [place] One [facility] [place] [address] Matt Ulrich MD 20 [facility] 254 [place] [id number] documented as of this encounter Goals Goal [...] documented as of this encounter Care Teams Tank Riveter Relationship Specialty [place] [address] [place] [address] PCP - General 06/21/10 Arlyn Schmidt MD [address] [place], [place] 40736[address] Consulting Physician Internal Medicine-Endocrinology, Diabetes & Metabolism 11/28/20 Tacho Echavarria MD 1 [place], [place] 0962417 Internal Medicine-Medical Oncology 11/12/23 Matt Ulrich MD 1 [place] [address] Surgery-Surgical Oncology 12/04/23 Eze Brock Pastoral Care 12/13/23 Annette Walker MSW Propeller Inspector 05/13/24 Batool Celis MD 1 [facility] [place] [address] Radiation Oncologist Radiology-Radiation Oncology 06/08/24 documented as of this encounter
--- OUTSIDE RECORDS SUMMARY | 2025-02-19 12:40 | XMS_ITS | Encounter Summary ---
Author Organization [place] [address] Care Team Providers Care Continuous Drier Operator Name Role Phone Chetna Cedeno MD Primary Care Provider [phone] Arlyn Schmidt MD Unavailable [phone] Tacho Echavarria MD Unavailable [phone] Matt Ulrich MD Unavailable [phone] Eze Brock Unavailable Annette Walker Unavailable [phone] Batool Celis MD Unavailable [phone] Encounter Details Date Type Department Care Team (Late st Contact Info) Description 02/10/2025 Orders Only [facility] [place] [address] Shilpa Cline, RN Social History [...] Recorded In the past 12 months has [employer], oil, or water [employer] threatened to shut off services in your [...] Date Recorded PHQ-2 Total Score 5 07/07/2024 [facility] of Occupat ional [facility] - Occupational Stress Questionnaire Answer [...] in a mcfp (including now)? No 11/07/2023 [facility] IP Transportation Answer D ate [...] AM EDT Office Visit [facility] [address] [place] [address] [place] [address] [place] [address] 03/02/2025 12:45 PM EDT Procedure visit [facility] NEUROLOG[facility]ECT[facility] [address] [facility] [address] [place] [address] Samm Ledesma, COMPUTER PUBLISHER [address] [facility] [address] [place] [address] 03/10/2025 12:30 PM EDT Appointment [place] [address] 03/10/2025 1:00 PM EDT Appointment [facility] Care Medical Oncology [place], [place] 2501517 Tacho Echavarria MD [address] [place] [address] 04/29/2025 9:15 AM EDT Appointment [place] [address] Batool Celis MD [address] [place] [address] CANCER CARE [place], [place] 24465[address] 05/19/2025 2:15 PM EST Office Visit [place] [address] [place] [address] Sin Tran MD [facility] [place] [phone] 08/12/2025 10:40 AM EST Appointment [facility] Women's Wellness [place] One [facility] [place] [address] Matt Ulrich MD [address] [place] [address] MUSA [facility] [place] [address] documented as of this encounter Goals Goal Patient Goal Type Associated Problems Recent Progress Patient-Stated? Author Blood Pressure < 140/90 Blood Pressure 121/77(02/04 2:04 PM EDT) No Chetna Cedeno MD Breast [facility] Breast Health On track(2024 11:27 [...] as of this encounter Care Teams Continuous Drier Operator Relationship Specialty [place] [address] [place] [address] PCP - General 06/21/10 Arlyn Schmidt MD [address] [place], [place] [address] Consulting Physician Internal Medicine-Endocrinology, Diabetes & Metabolism 11/28/20 Tacho Echavarria MD 1 [place] [address] Internal Medicine-Medical Oncology 11/12/23 Matt Ulrich MD 1 [place] [address] Surgery-Surgical Oncology 12/04/23 Eze Brock Pastoral Care 12/13/23 Annette Walker, [facility] Factory Process Workers 05/13/24 Batool Celis MD 1 [facility] [place] [address] Radiation Oncologist Radiology-Radiation Oncology 06/08/24 documented as of this encounter
--- OUTSIDE RECORDS SUMMARY | 2025-02-19 12:41 | XMS_ITS | Encounter Summary ---
Author Organization [place] [address] Care Team Providers Care Head Setter Name Role Phone Chetna Cedeno MD Primary Care Provider Arlyn Schmidt MD Unavailable [phone] Tacho Echavarria MD Unavailable Matt Ulrich MD Unavailable Eze Brock Unavailable Cheryl Nair RN Unavailable [phone] Sanam Murray OPERATIONS DISPATCHER Unavailable Unavailable Annette Walker OPERATIONS DISPATCHER Unavailable [phone] Batool Celis MD Unavailable [phone] Encounter Details Date Type Department Care Team (Late st Contact Info) Description 07/06/2024 Orders Only [facility] LABORATORY One [facility] [address] [place] [address] Shilpa Tan MD [address] [place] [address] [phone] Social History Tobacco Use Types Packs/Day Years [...] a senior care (including now)? No 11/07/2023 [facility] IP Transportation Answer D ate [...] 07/06/2024 4:32 PM Kayla Lee RN * [place] Suicide Severity Rating Scale (Q shift for [...] 11:40 AM EDT Office Visit ROMULO MERRITT [address] [place] [address] [place] [address] [address] [place] [address] 03/02/2025 12:45 PM EDT Procedure visit [facility] NEUROLOG[facility]ECT[facility] [address] [facility] [address] [place], [place] [address] Samm Ledesma, AUTISM TUTOR [address] [facility] [address] [place], [place] [address] 03/10/2025 12:30 PM EDT Appointment [place] [address] 03/10/2025 1:00 PM EDT Appointment [facility] [place] [address] Tacho Echavarria MD [address] [place] [address] 04/29/2025 9:15 AM EDT Appointment [place] [address] Batool Celis MD [address] [place] [address] [place] [address] 05/19/2025 2:15 PM EST Office Visit [address] [address] Sin Tran MD [address] [place] [address] 08/12/2025 10:40 AM EST Appointment [facility] Women's Wellness [facility] [place] [phone] Matt Ulrich MD [address] [place] [address] documented as of this encounter Goals Goal Patient Goal Type Associated Problems Recent Progress Patient-Stated? Author Blood Pressure < 140/90 Blood Pressure 121/77(02/04 2:04 PM EDT) No Chetna Cedeno MD Breast [facility] Breast Health On track(2024 11:27 AM EDT) No Jasmin Porter, RN Note: Patient acknowledges understanding of new diagnosis, plan of care, available resources and how to contact Nurse Navigator with any future questions or concerns. Breast [facility] Breast Health Not on track(2024 11:27 [...] EST) 07/06/2024 12:5 1 PM EST Narrative [facility] - 09/24/2024 2:57 PM EDT Requesting Provider: MATT Womack Specimen = [id number] us Shilpa Tan MD PATHOLOGY ORDERABLES Final R esult [facility] 1 [place] [address] documented in this encounter Visit Diagnoses Not on filedocumented in this encounter Additional Health Concerns Infection Onset Date Last Indicated Resolved Time COVID-19 09/04/2024 09/04/2024 09/24/2024 10:1 2 PM EDT Assessment Noted Time PHQ-9 Depression Total Score: 12 03/16/ 024 12:00 PM EDT documented as of this encounter Care Teams Head Setter Relationship Specialty [place] [address] [place] [address] PCP - General 06/21/10 Arlyn Schmidt MD [address] [place], [place] [address] Consulting Physician Internal Medicine-Endocrinology , Diabetes & Metabolism 11/28/20 Tacho Echavarria MD 1 [place] [address] Internal Medicine-Medical Oncology 11/12/23 Matt Ulrich MD 1 [place], [place] 9[address]17 Surgery-Surgical Oncology 12/04/23 Eze Brock Pastoral Care 12/13/23 Cheryl Nair, RN Oncology Nurse Navigator 03/25/2412/13 Sanam Murray MSW Supervisor [employer] Fueling 04/10/24 07/30/24 Annette Walker MSW Supervisor Reactor Fueling 05/13/24 Batool Celis MD 1 [facility] [place] [address] Radiation Oncologist Radiology-Radiation Oncology 06/08/24 documented as of this encounter
--- OUTSIDE RECORDS SUMMARY | 2025-02-19 12:41 | XMS_ITS | Clinical Summary ---
Author Organization [facility] Address [address] [place] [address] Phone Care Team Providers Care House Designer Name Role Phone Outside, Provider Unavailable [phone] Conditions or Problems No information available. Medications No information available. Medications Administered No information available. Allergies, Adverse Reactions, Alerts No information available. Results No information available. Plan of Care No information available. Procedures No information available. Vital Signs No information available. Immunizations No information available. Advance Directives No information available.
--- OUTSIDE RECORDS SUMMARY | 2025-02-19 12:41 | XMS_ITS | Encounter Summary ---
Author [place] [address] Care Team Providers Care Donor Services Team Leader Name Role Phone Chetna Cedeno MD Primary Care Provider [phone] Leslie Cooley CONTACT CENTER TEAM LEAD Unavailable UnaBatool [place] TWISTER TENDER Unavailable Unavailab Arlyn Disla MD Unavailable [phone] Cheryl Nair RN Unavailable [phone] Tacho Echavarria MD Unavailable [phone] Matt Ulrich MD Unavailable [phone] Hilary Clemens RN Unavailable Unavaila Eze Caro Unavailable Shila Albrecht RN Unavailable Unavail able Cheyanne To RN Unavailable UnavailRayna Johnson RN Unavailable Unavailab Shilpa Olivarez RN Unavailable [phone] Tulio Duong RN Unavailable Unavailable Yaquelin Weaver RN Unavailable Unavailable Pam Wang RN Unavailable Unavailable Jazmín Nair RN Unavailable Unavailable Fidel Rainey RN Unavailable Unavailable Cheryl Nair RN Unavailable [phone] Ophelia Lala RN Unavailable Glo Lee RN Unavailable Unavailab Sanam Evans DECK OFFICER Unavailable Unavailable Hilary Clemens RN Unavailable Unavaila Ruthy Clayton RN Unavailable Unavailable Rayna Partida RN Unavailable Unavailab Artur Nelson RN Unavailable Unavailable Annette Walker DECK OFFICER Unavailable [phone] Emmie Crain RN Unavailable Unavailable Brigdia Enriquez RN Unavailable Unavailable Fidel Rainey RN Unavailable Unavailable Batool Celis MD Unavailable [phone] Encounter Details Date Type Department Care Team (Late st Contact Info) Description 07/12/2015 Orders Only [facility] Gastro [facility] [address] [facility] Building [address] [place] [phone] Stone Cronin MD Social History Tobacco Use [...] 11:40 AM EDT Office Visit [facility] [address] [place] [address] [place] [address] [place] [address] 03/02/2025 12:45 PM EDT Procedure visit [facility] [address] [facility] [address] [place] [address] Samm Ledesma SENIOR ATTORNEY [address] [facility] [facility] [address] [place] [address] 03/10/2025 12:30 PM EDT Appointment [place] [address] 03/10/2025 1:00 PM EDT Appointment [place] [address] Tacho Echavarria MD 1 [place] [address] 04/29/2025 9:15 AM EDT Appointment [facility] [place] [address] Batool Celis MD [address] [facility] [address] [place] [address] 05/19/2025 2:15 PM EST Office Visit [facility] 49[address] [facility] [address] [place] [address] Sin Tran MD [facility] [place] [address] 08/12/2025 10:40 AM EST Appointment [facility] Women's Wellness [place] One [facility] [address] Matt Ulrich MD 20 [facility] 254 [place] [address] documented as of this encounter Procedures Procedure Name Priority Date/Time Associated Diagnosis Comments [facility] Routine 07/12/2015 2:30 PM EST documented in this encounter Results * [facility] (07/12/2015 2:30 PM EST) 07/12/2015 2:30 PM EST Impressions [facility] LAB - 07/12/2015 3:30 PM [...] ORDERABLES Doris [email or web address] Result [facility] 1 [place] [address] documented in this encounter Visit Diagnoses Not [...] documented as of this encounter Care Teams Donor Services Team Leader Relationship Specialty [place] [address] [place] [address] PCP - General 06/21/10 Leslie Cooley, CONTACT CENTER TEAM LEAD Motor Checker 01/28/19 07/15/19 Batool Myers TWISTER TENDER Motor Checker 02/13/19 07/15/19 Arlyn Schmidt MD [facility] Kevin [place], [place] [id number] Consulting Physician Internal Medicine-Endocrinolog y, Diabetes & Metabolism 11/28/20 Cheryl Nair, RN Oncology Nurse Navigator 10/29/2302/05 Tacho Echavarria MD 1 [place] [address] Internal Medicine-Medical Oncology 11/12/23 Matt Ulrich MD [address] [place] [address] Surgery-Surgical Oncology 12/04/23 Hilary Clemens, RN Registered [...] Nurse Infusion Therapy 04/03/24 04/03/24 Sanam Murray, DECK OFFICER Motor Checker 04/10/24 07/30/24 Hilary Clemens, RN Registered Nurse Infusion Therapy 04/21/24 04/21/24 Ruthy Walker RN Registered Nurse Infusion Therapy 04/24/24 04/24/24 Rayna Partida, RN Registered Nurse Infusion Clinic 05/01/24 05/01/24 Artur Roberts RN Registered Nurse Infusion Therapy 05/07/24 05/07/24 Aaron Annette, DECK OFFICER Motor Checker 05/13/24 Emmie Crain, RN Registered Nurse Infusion Therapy 05/14/24 05/14/24 Brigida Enriquez, RN Registered Nurse Infusion Clinic 05/21/24 05/21/24 Fidel Rainey, RN Registered Nurse Infusion Therapy 05/28/24 05/28/24 Batool Celis MD [address] [place] [address] [place] [address] Radiation Oncologist Radiology-Radiation Oncology 06/08/24 documented as of this encounter
--- OUTSIDE RECORDS SUMMARY | 2025-02-19 12:41 | XMS_ITS | Encounter Summary ---
Author Organization [place] [address] Care Team Providers Care Neuro Psych Sales Specialist Name Role Phone Chetna Cedeno MD Primary Care Provider [phone] Arlyn Schmidt MD Unavailable [phone] Tacho Echavarria MD Unavailable [phone] Matt Ulrich MD Unavailable [phone] Eze Brock Unavailable Annette Walker Unavailable [phone] Batool Celis MD Unavailable [phone] Reason for Visit * Reason Onset Date Comments Follow-up 12/23/2024 Encounter Details Date Type Department Care Team (Late Contact Info) Description 12/23/2024 Telephone [facility] [employer] [facility] 1 [place], [place] [phone] Tacho Echavarria MD 1 [place], [place] [id number] Follow-up Social History Tobacco Use Types Packs/Day [...] your doctor or pharmacy? Never 11/07/2023 [facility] Utilities Answer Date Recorded In the [...] Date Recorded PHQ-2 Total Score 5 07/07/2024 [facility] of Occupat ional Health [...] in a longterm (including now)? No 11/07/2023 [facility] IP Transportation [...] is disconnected, no HIPAA on file. Sent [place] message for pt to call [phone] schedule appointment and update personal info. * Telephone Encounter - Rosana Gupta RN - 12/23/2024 1:22 PM EDT Patient needs to get loretta draws every 3 months. MUJIN system shows the kit was mailed to [...] 11:40 AM EDT Office Visit [facility]ULO Tim[facility] [address] [place] [address] [place] [address] [place] [address] 03/02/2025 12:45 PM EDT Procedure visit [facility] [address] [place] [address] Samm Ledesma, LEYLA [address] [place] [address] 03/10/2025 12:30 PM EDT Appointment [place] [address] 03/10/2025 1:00 PM EDT Appointment [facility] [place] [address] Tacho Echavarria MD [address] [place] [address] 04/29/2025 9:15 AM EDT Appointment [place] [address] Batool Celis MD [address] [place] [address] [place] [address] 05/19/2025 2:15 PM EST Office Visit [facility] [address] [place] [address] [address] [facility] [address]D [place] [address] Sin Tran MD [address] [facility] [place] [address] 08/12/2025 10:40 AM EST Appointment [facility] Women's Wellness [place] One [facility] [place] [address] Matt Ulrich MD [address] [place] [address] 254 [place] [address] documented as of this encounter Goals Goal [...] documented as of this encounter Care Teams Neuro Psych Sales Specialist Relationship Specialty [place] [address] [place] [address] PCP - General 06/21/10 Arlyn Schmidt MD [address] [place], [place] [address] Consulting Physician Internal Medicine-Endocrinology, Diabetes & Metabolism 11/28/20 Tacho Echavarria MD 1 [place], [place] [phone] Internal Medicine-Medical Oncology 11/12/23 Matt Ulrich MD 1 [place], [place] [phone] Surgery-Surgical Oncology 12/04/23 Eze Brock Pastoral Care 12/13/23 Annette Walker, ENGINEER STATION MAINLINE Logistics Service Representative 05/13/24 Batool Celis MD 1 [place], [place] [id number] Radiation Oncologist Radiology-Radiation Oncology 06/08/24 documented as of this encounter
--- OUTSIDE RECORDS SUMMARY | 2025-02-19 12:41 | XMS_ITS | Encounter Summary ---
Author [place] [address] Care Team Providers Care Electronic Pagination System Operator Name Role Phone Chetna Cedeno MD Primary Care Provider [phone] Arlyn Schmidt MD Unavailable [phone] Tacho Echavarria MD Unavailable [phone] Matt Ulrich MD Unavailable [phone] Eze Brock Unavailable Annette Walker Unavailable [phone] Batool Celis MD Unavailable [phone] Reason for Visit * Reason Onset Date Comments Other 02/01/2025 Currently inpati ent at [facility] Encounter Details Date Type Department Care Team (Late st Contact Info) Description 02/01/2025 Telephone [facility] Medical Oncology [place], [place] [address] Tacho Echavarria MD [address] [place] [address] [id number] Other (Currently inpatient at [facility] ) Social History Tobacco Use Types [...] any time in the past 12 m [facility], were you homeless or living in a snf (including now)? No 11/07/2023 [facility] IP Transportation Answer D [...] to let know she was admitted to [facility] on Saturday and is still there.Has blood clot in lung and potassium was 2.5 Preferred call back number: [phone] documented in this encounter Plan of Treatment Upcoming Encounters Date Type Department Care Team (Late st Contact Info) Description 03/02/2025 11:40 AM EDT Office Visit SEP Tim[facility] [address] [place] [address] [place] [address] [place] [address] 03/02/2025 12:45 PM EDT Procedure visit [facility] NE[facility] [address] [place] [address] Samm Ledesma, EDITOR & CO FOUNDER [address] [place] [address] 03/10/2025 12:30 PM EDT Appointment [place] [address] 03/10/2025 1:00 PM EDT Appointment [facility] [place] [address] Tacho Echavarria MD [address] [place] [address] 04/29/2025 9:15 AM EDT Appointment [place] [address] Batool Celis MD [address] [place] [address] [place] [address] 05/19/2025 2:15 PM EST Office Visit [address] [address] Sin Tran MD [address] [place] [address] 08/12/2025 10:40 AM EST Appointment [facility] Women's Wellness [facility] [place] [address] Matt Ulrich MD [address] [place] [address] 254 [place] [address] documented as of this encounter Goals Goal [...] documented as of this encounter Care Teams Electronic Pagination System Operator Relationship Specialty [place] [address] [place] [address] PCP - General 06/21/10 Arlyn Schmidt MD [address] [place] [address] Consulting Physician Internal Medicine-Endocrinology, Diabetes & Metabolism 11/28/20 Tacho Echavarria MD 1 [place] [phone] Internal Medicine-Medical Oncology 11/12/23 Matt Ulrich MD 1 [place] [address] Surgery-Surgical Oncology 12/04/23 Eze Brock Pastoral Care 12/13/23 Annette Walker MSW Film Sound Coordinator 05/13/24 Batool Celis MD 1 [facility] [place] [address] Radiation Oncologist Radiology-Radiation Oncology 06/08/24 documented as of this encounter
--- OUTSIDE RECORDS SUMMARY | 2025-02-19 12:41 | XMS_ITS | Encounter Summary ---
Author Organization [place] [address] Care Team Providers Care Auto Inspector Name Role Phone Chetna Cedeno MD Primary Care Provider [phone] Arlyn Schmidt MD Unavailable [phone] Tacho Echavarria MD Unavailable [phone] Matt Ulrich MD Unavailable [phone] Eze Brock Unavailable Cheryl Nair RN Unavailable [phone] Annette Walker MASH PREPARATORY OPERATOR Unavailable [phone] Batool Celis MD Unavailable [phone] Encounter Details Date Type Department Care Team (Late st Contact Info) Description 10/27/2024 Orders Only [facility] Physical Therapy [place] [address] [facility] [address] [place] [address] Shaunna Workman PT Social History [...] pharmacy? Never 11/07/2023 [facility] Utilities Answer Date Recorded In [...] Total Score 5 07/07/2024 [facility] [place] of Occupat ional Health - Occupational Stress [...] any time in the past 12 m [facility], were you homeless or living in a fpc (including now)? No 11/07/2023 [facility] IP Transportation Answer [...] 11:40 AM EDT Office Visit SEP Timote[facility] [address] [place] [address] [place] [address] [place] [address] 03/02/2025 12:45 PM EDT Procedure visit [facility] NE[facility] [address] [facility] [place] [address] Samm Ledesma, LEYLA [address] [place] [address] 03/10/2025 12:30 PM EDT Appointment [place] [address] 03/10/2025 1:00 PM EDT Appointment [facility] Medical Oncology [place], [place] 20[address] Tacho Echavarria MD [address] [place] [address] 04/29/2025 9:15 AM EDT Appointment [place] [address] Batool Celis MD [address] [place] [address] [place] [address] 05/19/2025 2:15 PM EST Office Visit [facility] [place] [address] [facility] [address]D [place] [address] Sin Tran MD [address] [facility] [place] [address] 08/12/2025 10:40 AM EST Appointment [facility] Women's Wellness [facility] [place] [address] Matt Ulrich MD [address] [place] [address] 254 [place] [address] documented as of this encounter Goals Goal Patient Goal Type Associated Problems Recent Progress Patient-Stated? Author Blood Pressure < 140/90 Blood Pressure 121/77(02/04 2:04 PM EDT) No Chetna Cedeno MD Breast [facility] Breast Health On track(2024 11:27 AM [...] as of this encounter Care Teams Auto Inspector Relationship Specialty [place] [address] [place] [address] PCP - General 06/21/10 Arlyn Schmidt MD [address] [place], [place] 9[address] Consulting Physician Internal Medicine-Endocrinology , Diabetes & Metabolism 11/28/20 Tacho Echavarria MD 1 [place], [place] 63017[address] Internal Medicine-Medical Oncology 11/12/23 Matt Ulrich MD 1 [place], [place] [address] Surgery-Surgical Oncology 12/04/23 Eze Brock Pastoral Care 12/13/23 Cheryl Nair, RN Oncology Nurse Navigator 03/25/2412/13 Annette Walker, ARACELI Bar Host/Hostess 05/13/24 Batool Celis MD 1 [facility] CANCER [place], [place] [address] Radiation Oncologist Radiology-Radiation Oncology 06/08/24 documented as of this encounter
--- OUTSIDE RECORDS SUMMARY | 2025-02-19 12:41 | XMS_ITS | Encounter Summary ---
Author Organization [place] [address] Care Team Providers Care Railroad Purchasing Agent Name Role Phone Chetna Cedeno MD Primary Care Provider [phone] Arlyn Schmidt MD Unavailable [phone] Tacho Echavarria MD Unavailable Matt Ulrich MD Unavailable Eze Brock Unavailable Cheryl Nair RN Unavailable [phone] Annette Walker MOTORS ASSEMBLER Unavailable [phone] Batool Celis MD Unavailable [phone] Encounter Details Date Type Department Care Team (Late st Contact Info) Description 12/07/2024 Results Follow-Up H[facility]OR ENDOSCOPY [address] [place] [address] King Oliva MD [address] [place] [address] PATHOLOGY TISSUE REQUEST Social History Tobacco Use [...] Date Recorded PHQ-2 Total Score 5 07/07/2024 [facility] of Occupat ional Health [...] in a penitentiary (including now)? No 11/07/2023 [facility] IP Transportation Answer D [...] 11:40 AM EDT Office Visit SEP [facility] [address] [place] [address] [place] [address] [place] [address] 03/02/2025 12:45 PM EDT Procedure visit [facility] NEUROLOGY [facility]ECTOR [address] [place] [address] Samm Ledesma, ADULT PAROLE OFFICER [address] [place] [address] 03/10/2025 12:30 PM EDT Appointment [place] [address] 03/10/2025 1:00 PM EDT Appointment [facility] Medical Oncology [place], [place] 057[address] Tacho Echavarria MD [address] [place] [phone] 04/29/2025 9:15 AM EDT Appointment [facility] [address] Batool Celis MD [address] [place] [address] [place] [address] 05/19/2025 2:15 PM EST Office Visit [facility] Sarah [address] [facility] [address]D [place] [address] Sin Tran MD [facility] [place] [address] 08/12/2025 10:40 AM EST Appointment [facility] Women's Wellness [place] [address] [facility] [place] [address] Matt Ulrich MD [address] [place] [address] [address] [place] [address] documented as of this encounter Goals [...] documented as of this encounter Care Teams Railroad Purchasing Agent Relationship Specialty [place] [address] [place] [address] PCP - General 06/21/10 Arlyn Schmidt MD [address] [place] [address] Consulting Physician Internal Medicine-Endocrinology , Diabetes & Metabolism 11/28/20 Tacho Echavarria MD 1 [place] [address] Internal Medicine-Medical Oncology 11/12/23 Matt Ulrich MD 1 [place] [address] Surgery-Surgical Oncology 12/04/23 Eze Brock Pastoral Care 12/13/23 Cheryl Nair, RN Oncology Nurse Navigator 03/25/2412/13 Annette Walker MSW Public Relations Assistant 05/13/24 Batool Celis MD 1 [facility] [place] [address] Radiation Oncologist Radiology-Radiation Oncology 06/08/24 documented as of this encounter
--- OUTSIDE RECORDS SUMMARY | 2025-02-19 12:41 | XMS_ITS | Encounter Summary ---
Author Organization [place] [address] Care Team Providers Care Nurse Liaison Name Role Phone Chetna Cedeno MD Primary Care Provider [phone] Arlyn Schmidt MD Unavailable [phone] Tacho Echavarria MD Unavailable [phone] Matt Ulrich MD Unavailable [phone] Eze Brock Unavailable Annette Walker Unavailable [phone] Batool Celis MD Unavailable [phone] Reason for Visit * Reason Onset Date Comments Follow-up 02/12/2025 Updated form, lo an deferment form Encounter Details Date Type Department Care Team (Late st Contact Info) Description 02/12/2025 Telephone [facility] Medical Oncology [place], [place] [phone] Eze Rowland MD [address] [place] [address] [phone] Follow-up (Updated form, loan deferment form ) [...] from your doctor or pharmacy? Never 11/07/2023 [facility] Utilities Answer Date Recorded In [...] Total Score 5 07/07/2024 [facility] [place] of Occupat ional Health - Occupational Stress [...] in a fpc (including now)? No 11/07/2023 [facility] IP Transportation Answer D [...] to fill out for loan deferment via [employer] message. documented in this encounter Plan of Treatment Upcoming Encounters Date Type Department Care Team (Late st Contact Info) Description 03/02/2025 11:40 AM EDT Office Visit SEP [facility] [address] [place] [address] [place] [address] [place] [address] 03/02/2025 12:45 PM EDT Procedure visit [facility] NEUROLOG[facility]ECTOR [address] [place] [address] Samm Ledesma, CARE TEAM ASSISTANT [address] [facility] [address] [place] [address] 03/10/2025 12:30 PM EDT Appointment [facility] [place], [place] 2938217 03/10/2025 1:00 PM EDT Appointment [facility] [place] [address] Tacho Echavarria MD 1 [place], [place] 7[address]17 04/29/2025 9:15 AM EDT Appointment [facility] [place] [address] Batool Celis MD [address] [facility] [place] [address] 05/19/2025 2:15 PM EST Office Visit [facility] [address] [place] [address] 1[address] [place] [address] Sin Tran MD [address] [place] [address] 08/12/2025 10:40 AM EST Appointment [facility] Women's Wellness [place] One [facility] [place] [address] Matt Ulrich MD [address] [place] [address] documented as of this encounter Goals Goal [...] documented as of this encounter Care Teams Nurse Liaison Relationship Specialty [place] [address] [place] [address] PCP - General 06/21/10 Arlyn Scmhidt MD [address] [place] [address] Consulting Physician Internal Medicine-Endocrinology, Diabetes & Metabolism 11/28/20 Tacho Echavarria MD 1 [place], [place] 0603717 Internal Medicine-Medical Oncology 11/12/23 Matt Ulrich MD 1 [place] [address] Surgery-Surgical Oncology 12/04/23 Eze Brock Pastoral Care 12/13/23 Annette Walker MSW Finisher Card Tender 05/13/24 Batool Celis MD 1 [facility] CANCER CARE [place], [place] [address] Radiation Oncologist Radiology-Radiation Oncology 06/08/24 documented as of this encounter
--- OUTSIDE RECORDS SUMMARY | 2025-02-19 12:41 | XMS_ITS | Encounter Summary ---
Author Organization [place] [address] Care Team Providers Care Dealer Support Technician Name Role Phone Chetna Cedeno MD Primary Care Provider Arlyn Schmidt MD Unavailable [phone] Tacho Echavarria MD Unavailable [phone] Matt Ulrich MD Unavailable [phone] Eze Brock Unavailable Cheryl Nair RN Unavailable [phone] Sanam Murray DRILLING CONTRACTOR Unavailable Unavailable Annette Walker DRILLING CONTRACTOR Unavailable [phone] Batool Celis MD Unavailable [phone] Encounter Details Date Type Department Care Team (Late st Contact Info) Description 07/06/2024 Orders Only [facility] One [facility] [address] [place] [place] [address] Shilpa Tan MD [address] [place] [phone] Social History Tobacco Use Types Packs/Day Years [...] from your doctor or pharmacy? Never 11/07/2023 [facility] Utilities Answer Date Recorded [...] a senior care (including now)? No 11/07/2023 [facility] IP Transportation Answer D ate [...] 07/06/2024 4:32 PM Kayla Lee RN * [place] Suicide Severity Rating Scale (Q shift for [...] 11:40 AM EDT Office Visit ROMULO MERRITT [address] [place] [address] [place] [address] [address] [place] [address] 03/02/2025 12:45 PM EDT Procedure visit [facility] NEUROLOGY [facility]ECTOR [address] [facility] [address] [place], [place] [address] Samm Ledesma, PRIVATE INVESTIGATOR [address] [facility] [address] [place], [place] [address] 03/10/2025 12:30 PM EDT Appointment [facility] [address] 03/10/2025 1:00 PM EDT Appointment [facility] [place] [address] Tacho Echavarria MD [address] [place] [address] [id number] 04/29/2025 9:15 AM EDT Appointment [place] [address] Batool Celis MD [address] [place] [address] [place] [address] 05/19/2025 2:15 PM EST Office Visit [address] [address] Sin Tran MD [address] [place] [address] 08/12/2025 10:40 AM EST Appointment [facility] Women's Wellness [facility] [place] [phone] Matt Ulrich MD [address] [place] [address] documented as of this encounter Goals Goal Patient Goal Type Associated Problems Recent Progress Patient-Stated? Author Blood Pressure < 140/90 Blood Pressure 121/77(02/04 2:04 PM EDT) No Chetna Cedeno MD Breast [facility] Breast Health On track(2024 11:27 AM EDT) No Jasmin Porter, RN Note: Patient acknowledges understanding of new diagnosis, plan of care, available resources and how to contact Nurse Navigator with any future questions or concerns. Breast [facility] Breast Health Not on track(2024 [...] EST) 07/06/2024 12:5 1 PM EST Narrative [facility] - 09/24/2024 2:31 PM EDT Requesting Provider: MATT Womack Specimen = [id number] us Shilpa Tan MD PATHOLOGY ORDERABLES Final R esult [facility] 1 [place] [address] documented in this encounter Visit Diagnoses Not on filedocumented in this encounter Additional Health Concerns Infection Onset Date Last Indicated Resolved Time COVID-19 09/04/2024 09/04/2024 09/24/2024 10:1 2 PM EDT Assessment Noted Time PHQ-9 Depression Total Score: 12 03/16/ 024 12:00 PM EDT documented as of this encounter Care Teams Dealer Support Technician Relationship Specialty [place] [address] [place] [address] PCP - General 06/21/10 Arlyn Schmidt MD [address] [place], [place] [address] Consulting Physician Internal Medicine-Endocrinology , Diabetes & Metabolism 11/28/20 Tacho Echavarria MD 1 [place] [address] Internal Medicine-Medical Oncology 11/12/23 Matt Ulrich MD 1 [place], [place] 94[address]17 Surgery-Surgical Oncology 12/04/23 Eze Brock Pastoral Care 12/13/23 Cheryl Nair, RN Oncology Nurse Navigator 03/25/2412/13 Sanam Murray MSW Oiler Helper 04/10/24 07/30/24 Annette Walker MSW Oiler Helper 05/13/24 Batool Celis MD 1 [facility] [place] [address] Radiation Oncologist Radiology-Radiation Oncology 06/08/24 documented as of this encounter
--- OUTSIDE RECORDS SUMMARY | 2025-02-19 12:41 | XMS_ITS | Encounter Summary ---
Author Organization [place] [address] Care Team Providers Care Rib Cloth Knitter Name Role Phone Chetna Cedeno MD Primary Care Provider [phone] Arlyn Schmidt MD Unavailable [phone] Tacho Echavarria MD Unavailable [phone] Matt Ulrich MD Unavailable [phone] Eze Brock Unavailable Cheryl Nair RN Unavailable [phone] Annette Walker COLLECTIONS REPRESENTATIVE Unavailable [phone] Batool Celis MD Unavailable [phone] Encounter Details Date Type Department Care Team (Late st Contact Info) Description 10/26/2024 Orders Only [facility] Physical Therapy [place] [address] [place] [address] Shaunna Workman PT Social History [...] PHQ-2 Total Score 5 07/07/2024 [facility] of Occupat ional Health - Occupational Stress [...] in a custodial (including now)? No 11/07/2023 [facility] IP Transportation Answer D ate Recorded [...] AM EDT Office Visit [facility] [address] [place] [address] [place] [address] [place] [address] 03/02/2025 12:45 PM EDT Procedure visit [facility] [address] [place] [address] Samm Ledesma, FLOW MATCH SOFA CUTTER [address] [facility] [address] [place] [address] 03/10/2025 12:30 PM EDT Appointment [place] [address] 03/10/2025 1:00 PM EDT [facility]ointment [facility] [place] [address] Tacho Echavarria MD [address] [place] [address] 04/29/2025 9:15 AM EDT Appointment [facility] [address] Batool Celis MD [address] [place] [address] CANCER CARE [place], [place] [id number] 05/19/2025 2:15 PM EST Office Visit [place] [address] [place] [address] Sin Tran MD [address] [place] [address] 08/12/2025 10:40 AM EST Appointment [facility] Women's Wellness [place] [facility] [place] [address] Matt Ulrich MD [address] [place] [address] MUSA Zrai [facility] [place] [address] documented as of this encounter Goals [...] documented as of this encounter Care Teams Rib Cloth Knitter Relationship Specialty [place] [address] [place] [address] PCP - General 06/21/10 Arlyn Schmidt MD [address] [place], [place] [address] Consulting Physician Internal Medicine-Endocrinology , Diabetes & Metabolism 11/28/20 Tacho Echavarria MD 1 [place], [place] [address]17 Internal Medicine-Medical Oncology 11/12/23 Matt Ulrich MD 1 [place] [id number] Surgery-Surgical Oncology 12/04/23 Eze Brock Pastoral Care 12/13/23 Cheryl Nair, RN Oncology Nurse Navigator 03/25/2412/13 Annette Walker, ARACELI Data Modeling Architect 05/13/24 Batool Celis MD 1 [place], [place] [id number] Radiation Oncologist Radiology-Radiation Oncology 06/08/24 documented as of this encounter
--- OUTSIDE RECORDS SUMMARY | 2025-02-19 12:42 | XMS_ITS | Encounter Summary ---
Author [place] [address] Care Team Providers Care Dentist Private Practice Name Role Phone Chetna Cedeno MD Primary Care Provider [phone] Arlyn Schmidt MD Unavailable [phone] Tacho Echavraria MD Unavailable [phone] Matt Ulrich MD Unavailable [phone] Eze Brock Unavailable Shilpa Cline RN Unavailable [phone] Cheryl Nair RN Unavailable [phone] Ophelia Lala RN Unavailable Glo Lee RN Unavailable Unavailab Sanam Evans TRIM TECHNICIAN Unavailable Unavailable Hilary Clemens RN Unavailable Unavaila Ruthy Clayton RN Unavailable Unavailable Rayna Partida RN Unavailable Unavailab Artur Nelson RN Unavailable Unavailable Annette Walker TRIM TECHNICIAN Unavailable [phone] Emmie Crain RN Unavailable Unavailable Brigida Enriquez RN Unavailable Unavailable Fidel Rainey RN Unavailable Unavailable Batool Celis MD Unavailable [phone] Encounter Details Date Type Department Care Team (Late st Contact Info) Description 03/18/2024 Lab Requisition [facility] [place] [address] Provider, Unknown Malignant neoplasm of unspecified site [...] Date Recorded PHQ-2 Total Score 0 11/07/2023 [facility] of Occupat ional Health - [...] in a chcf (including now)? No 11/07/2023 Education Answer Date [...] 11:40 AM EDT Office Visit [facility] [place] [address] [place] [address] [place] [address] [place] [address] 03/02/2025 12:45 PM EDT Procedure visit [facility] [address] [place] [address] Samm Ledesma, DIRECTOR BEHAVIORAL HEALTH [address] [facility] [address] [place] [address] 03/10/2025 12:30 PM EDT Appointment [facility] [place], [place] [id number] 03/10/2025 1:00 PM EDT Appointment [facility] Oncology [place], [place] 7458017 Tacho Echavarria MD [address] [place] [id number] 04/29/2025 9:15 AM EDT Appointment [facility] RAD ONC [place], [place] [phone] Batool Celis MD [address] [place] [address] CANCER CARE [place], [place] [id number] 05/19/2025 2:15 PM EST Office Visit [facility] [address] [place] [address] [address] [place] [address] Sin Tran MD [address] [place] [address] 08/12/2025 10:40 AM EST Appointment [facility] Women's Wellness [place] One [facility] [place] [address] Matt Ulrich MD [address] [place] [address] DR MUSA Hame[address] [facility] [address] documented as of this encounter Goals Goal [...] EDT) CASE REPORT Surgical Pathology Report Case: [id number] Authorizing Provider: Provider, Unknown Collected: 03/18/2024 1327 Ordering Location: [facility] Received: 03/18/2024 1327 Pathologist: Diane Ellis MD Specimen: Breast, Right, Request for case [id number] slides to [facility] Pathology. 05/04/2024 1:26 PM EDT [facility] FINAL DIAGNOSIS Results will be scanned in this case as an addendum. 05/04/2024 1:26 PM EDT [facility] at 1329 EDT EMBEDDED IMAGES 05/04/2024 1:26 PM EDT [facility] ADDENDUM Refer to [facility] Surgical Pathology Report. 05/04/2024 1:26 PM EDT [facility] Addendum electronically signed by Diane Ellis MD on 05/04/2024 at 1326 EDT Tissue RIGHT BREAST STRUCTURE / Unknown 03/18/2024 1:27 PM EDT 03/18/2024 1:27 PM EDT us Unknown Provider PATHOLOGY ORDERABLES Edited Res ult - Final [facility] 1 [place] [address] documented in this encounter Visit Diagnoses Diagnosis Malignant neoplasm of unspecified site of right female breast (HCC) documented in this encounter Additional Health Concerns Infection Onset Date Last Indicated Resolved Time COVID-19 09/04/2024 09/04/2024 09/24/2024 10:1 2 PM EDT Assessment Noted Time PHQ-9 Depression Total Score: 12 024 12:00 PM EDT documented as of this encounter Care Teams Dentist Private Practice Relationship Specialty [place] [address] [place] [address] PCP - General 06/21/10 Arlyn [place] MD [facility] [place] [address] Consulting Physician Internal Medicine-Endocrinolog y, Diabetes & Metabolism 11/28/20 Tacho Echavarria MD [address] [place] [address] Internal Medicine-Medical Oncology 11/12/23 Matt Ulrich MD [address] [place] [address] Surgery-Surgical Oncology 12/04/23 Eze Brock Pastoral Care 12/13/23 Shilpa Cline, RN Oncology Nurse Navigator 02/04/2403/09 Cheryl Nair, RN Oncology Nurse Navigator 03/25/2412/13 Ophelia Lala, RAUL Registered Nurse Infusion Therapy 03/27/24 03/27/24 Glo Lee, RN Registered Nurse Infusion Therapy 04/03/24 04/03/24 Sanam Murray, TRIM TECHNICIAN Roto Rooter Operator 04/10/24 07/30/24 Hilary Clemens, RN Registered Nurse Infusion Therapy 04/21/24 04/21/24 Ruthy Walker RN Registered Nurse Infusion Therapy 04/24/24 04/24/24 Rayna Partida, RN Registered Nurse Infusion Clinic 05/01/24 05/01/24 Artur Roberts RN Registered Nurse Infusion Therapy 05/07/24 05/07/24 Annette Walker, TRIM TECHNICIAN Roto Rooter Operator 05/13/24 Emmie Crain, RN Registered Nurse Infusion Therapy 05/14/24 05/14/24 Brigida Enriquez, RN Registered Nurse Infusion Clinic 05/21/24 05/21/24 Fidel Rainey, RN Registered Nurse Infusion Therapy 05/28/24 05/28/24 Batool Celis MD 1 [facility] [place] [address] Radiation Oncologist Radiology-Radiation Oncology 06/08/24 documented as of this encounter
--- OUTSIDE RECORDS SUMMARY | 2025-02-19 12:42 | XMS_ITS | Encounter Summary ---
Author [place] [address] Care Team Providers Care Track Welder Name Role Phone Chetna Cedeno MD Primary Care Provider [phone] Arlyn Schmidt MD Unavailable [phone] Tacho Echavarria MD Unavailable [phone] Matt Ulrich MD Unavailable [phone] Eze Brock Unavailable Annette Walker Unavailable [phone] Batool Celis MD Unavailable [phone] Reason for Visit * Reason Onset Date Comments Other 02/05/2025 BW Encounter Details Date Type Department Care Team (Late st Contact Info) Description 02/05/2025 Telephone [facility] [place] [address] [place] [address] [place] [address] [place] [address] Other (BW) Social History Tobacco Use [...] your doctor or pharmacy? Never 11/07/2023 [facility] Utilities Answer Date Recorded In [...] group home (including now)? No 11/07/2023 [facility] IP Transportation Answer D [...] potassium [facility] * Telephone Encounter - Destiny Alejandre CCMA [...] 11:40 AM EDT Office Visit [facility] [place] [address] [place] [address] [place] [address] [place] [address] 03/02/2025 12:45 PM EDT Procedure visit [facility] [address] [place] [address] Samm Ledesma, VETERINARY BACTERIOLOGIST [address] [facility] [address] [place] [address] 03/10/2025 12:30 PM EDT Appointment [facility] [place], [place] [id number] 03/10/2025 1:00 PM EDT Appointment [facility] [place] [address] Tacho Echavarria MD [address] [place] [id number] 04/29/2025 9:15 AM EDT Appointment [facility] [place] [address] Batool Celis MD [address] [place] [address] [place] [address] 05/19/2025 2:15 PM EST Office Visit [address] [address] Sin Tran MD [address] [place] [address] 08/12/2025 10:[address] [facility] Women's Wellness [place] [address] Matt Ulrich MD [address] [place] [address] [address] [place] [address] documented as of this encounter Goals Goal [...] as of this encounter Care Teams Track Welder Relationship Specialty [place] [address] [place] [address] PCP - General 06/21/10 Arlyn Schmidt MD [address] [place] [address] Consulting Physician Internal Medicine-Endocrinology, Diabetes & Metabolism 11/28/20 Tacho Echavarria MD 1 [place] [address] Internal Medicine-Medical Oncology 11/12/23 Matt Ulrich MD 1 [place] [address] Surgery-Surgical Oncology 12/04/23 Eze Brock Pastoral Care 12/13/23 Annette Walker, ARACELI Alarm Technician 05/13/24 Batool Celis MD [address] [place] [address] [place] [address] Radiation Oncologist Radiology-Radiation Oncology 06/08/24 documented as of this encounter
--- OUTSIDE RECORDS SUMMARY | 2025-02-19 12:42 | XMS_ITS | Encounter Summary ---
Author [place] [address] Care Team Providers Care Wood Furniture Assembler Name Role Phone Chetna Cedeno MD Primary Care Provider [phone] Arlyn Schmidt MD Unavailable [phone] Tacho Echavarria MD Unavailable [phone] Matt Ulrich MD Unavailable [phone] Eze Brock Unavailable Annette Walker Unavailable [phone] Batool Celis MD Unavailable [phone] Encounter Details Date Type Department Care Team (Late st Contact Info) Description 02/15/2025 Telephone [facility] On[facility] [place], [place] [phone] Tacho Echavarria MD [address] [place] [address] [id number] Social History Tobacco Use Types Packs/Day Years [...] from your doctor or pharmacy? Never 11/07/2023 [facility] Utilities Answer Date Recorded In the [...] 5 07/07/2024 [facility] [place] of Occupat ional Health - Occupational Stress [...] in a correction (including now)? No 11/07/2023 [facility] IP Transportation Answer D ate [...] air conditioning unit will be at the medical receptionist assistant desk on the second floor. Copy also placed in scan pile documented in this encounter Plan of Treatment Upcoming Encounters Date Type Department Care Team (Late st Contact Info) Description 03/02/2025 11:40 AM EDT Office Visit [facility] [place] [facility] [address] [place] [address] [place] [address] [place] [address] 03/02/2025 12:45 PM EDT Procedure visit [facility] [address] [place] [address] Samm Ledesma APRN [address] [facility] [facility] [address] [place] [address] 03/10/2025 12:30 PM EDT Appointment [place] [address] 03/10/2025 1:00 PM EDT Appointment [facility] [place] [address] Tacho Echavarria MD [address] [place] [address] 04/29/2025 9:15 AM EDT Appointment [facility] [place] [place] [address] Batool Celis MD [address] [address] [facility] [place] [address] 05/19/2025 2:15 PM EST Office Visit [facility] [address] [place] [address] [address] [place] [address] Sin Tran MD [address] [place] [address] [place] [address] 08/12/2025 10:40 AM EST Appointment [facility] Women's Wellness [facility] [place] [address] Matt Ulrich MD [address] [facility] 254 [place] [address] documented as of this encounter Goals Goal [...] as of this encounter Care Teams Wood Furniture Assembler Relationship Specialty [place] [address] [place] [address] PCP - General 06/21/10 Arlyn Schmidt MD [address] [place] [address] Consulting Physician Internal Medicine-Endocrinology, Diabetes & Metabolism 11/28/20 Tacho Echavarria MD 1 [place], [place] [phone] Internal Medicine-Medical Oncology 11/12/23 Matt Ulrich MD 1 [place] [address] Surgery-Surgical Oncology 12/04/23 Eze Brock Pastoral Care 12/13/23 Annette Walker, ARACELI Vehicle Washer 05/13/24 Batool Celis MD 1 [facility] [place] [address] Radiation Oncologist Radiology-Radiation Oncology 06/08/24 documented as of this encounter
--- OUTSIDE RECORDS SUMMARY | 2025-02-19 12:42 | XMS_ITS | Encounter Summary ---
Author Organization [place] [address] Care Team Providers Care Extractor Operator Solvent Process Name Role Phone Chetna Cedeno MD Primary Care Provider [phone] Arlyn Schmidt MD Unavailable [phone] Tacho Echavarria MD Unavailable [phone] Matt Ulrich MD Unavailable [phone] Eze Brock Unavailable Annette Walker Unavailable [phone] Batool Celis MD Unavailable [phone] Reason for Visit * Reason Comments Pharmacy Oncology Management Abemaciclib Encounter Details Date Type Department Care Team (Latest Contact Info) Description 02/03/2025 Specialty Pharmacy [facility] [address] [place] [address] Anisa Lozoya CPhT Pharmacy Oncology [...] th e electric, gas, oil, or water [employer] threatened to shut off services in your [...] any clubs o r organizations such as temple groups, unions, fraternal or athletic groups, or [...] PHQ-2 Total Score 5 07/07/2024 [facility] of Occupat ional Health - Occupational Stress [...] a care home (including now)? No 11/07/2023 [facility] [...] she is being discharged tomorrow and will cigar packer and picker all her meds. She is unsure of supply left. * Blake Antoine RPH - 02/03/2025 11:05 AM EDT [facility] - Care Plan and Refill Review Refill questions and refill history verified. Last assessment 12/25/24. No reassessment needed at this time. Blake Antoine PharmD Specialty Pharmacist documented in this encounter Plan of Treatment Upcoming Encounters Date Type Department Care Team (Late st Contact Info) Description 03/02/2025 11:40 AM EDT Office Visit [facility] [address] [place] [address] [place] [address] [place] [address] 03/02/2025 12:45 PM EDT Procedure visit [facility] [address] [facility] [address] [place] [address] Samm Ledesma, AUTO FINANCE SALES REP [address] [facility] [address] [place] [address] 03/10/2025 12:30 PM EDT Appointment [facility] [place], [place] [id number] 03/10/2025 1:00 PM EDT Appointment [facility] [place] [address] Tacho Echavarria MD [address] [place] [address] [id number] 04/29/2025 9:15 AM EDT Appointment [facility] [place] [address] Batool Celis MD [address] [place] [address] [place] [address] 05/19/2025 2:15 PM EST Office Visit [address] [address] Sin Tran MD [address] [place] [address] 08/12/2025 10:40 AM EST Appointment [facility] Women's Wellness [facility] [place] [address] Matt Ulrich MD [address] [place] [address] 254 [place] [address] documented as of this encounter Goals Goal [...] documented as of this encounter Care Teams Extractor Operator Solvent Process Relationship Specialty Start [place] [address] [place] [address] PCP - General 06/21/10 Arlyn Schmidt MD [address] [place] [address] Consulting Physician Internal Medicine-Endocrinology, Diabetes & Metabolism 11/28/20 Tacho Echavarria MD 1 [place] [address] Internal Medicine-Medical Oncology 11/12/23 Matt Ulrich MD 1 [place] [address] Surgery-Surgical Oncology 12/04/23 Eze Brock Pastoral Care 12/13/23 Aaron Annette, DIGITAL CAMPAIGN SPECIALIST Nascar Racer 05/13/24 Batool Celis MD 1 [facility] [place] [address] Radiation Oncologist Radiology-Radiation Oncology 06/08/24 documented as of this encounter
--- OUTSIDE RECORDS SUMMARY | 2025-02-19 12:42 | XMS_ITS | Encounter Summary ---
Author Organization [place] [address] Care Team Providers Care Auto Damage Insurance Appraiser Name Role Phone Chetna Cedeno MD Primary Care Provider [phone] Arlyn Schmidt MD Unavailable [phone] Tacho Echavarria MD Unavailable [phone] Matt Ulrich MD Unavailable [phone] Eze Brock Unavailable Annette Walker BROTH MIXER Unavailable [phone] Batool Celis MD Unavailable [phone] Encounter Details Date Type Department Care Team (Late st Contact Info) Description 02/04/2025 Social Work [facility] Cancer Care [facility] [place] [address] Annette Walker, BROTH MIXER Social History Tobacco Use Types Packs/Day Years [...] Recorded In the past 12 months has [employer]alty [employer], oil, or water [employer] threatened to shut off services in your [...] in a chcf (including now)? No 11/07/2023 [facility] IP Transportation Answer D ate [...] - 02/04/2025 1:42 PM EDT 02/04/25 1341 Airline Managerial Supervisor Assessment Referred By DT Disease/[place] Site Supervisor Water Treatment Plant Assignment Breast cancer Referral Location: [facility] Reason for Referral DT Identified Needs Adjustment to illness;Education/Information;Mental Health;Transportation Social Work Interventions Education/Information;Brief Couseling/Support;Transportation Distress Screening SW Reviewed Yes On this date, ARACELI Spears, FIRER LOCOMOTIVE CRANE met with patient in response to receipt of a distress tool submitted on patients behalf. Patient's distress tool rating was 10 and FIRER LOCOMOTIVE CRANE provided brief counseling/support to Patient. Patient explained she wanting to moved forward with her life but various issues are causing set backs including a recent hospitalization and newly discovered blood clot in her lung. Patient is continuing telehealth therapy with therapist, Jeninffer and although she had initial appointment with [facility] for medication management, she has not follow up with recommended appointment and request to refill medication has been declined. Patient states she had a reaction to the medication prescribed and has been taking medication prescribed by Dr. Echavarria's office for her depression. We discussed need to establish exterminator relationship with therapist/medication management provider for her mental health. FIRER LOCOMOTIVE CRANE suggested communication with [facility] regarding side effects and possible alternatives. Patient expresses great relief of being out of the [facility] away from unhealthy relationships but has run into some issues with her new housing. She is working closely with [facility] to move to a lower floor and resolve issues including HVAC issues. She received donated air conditioner from [facility] and [facility] has allowed that unit. FIRER LOCOMOTIVE CRANE provided gas cards to assist Patient with fuel costs associated with long drive to her home. Patient expressed that she is focusing on stabilizing her health, gaining strength, and hopes to engage in a volunteer capacity in her new community soon. No other needs identified at this time. FIRER LOCOMOTIVE CRANE remains available to support as needed. documented in this encounter Plan of Treatment Upcoming Encounters Date Type Department Care Team (Late st Contact Info) Description 03/02/2025 11:40 AM EDT Office Visit [facility] [place] [facility] [address] [place] [address] [place] [address] [place] [address] 03/02/2025 12:45 PM EDT Procedure visit [facility] [address] [facility] [address] [place] [address] Samm Ledesma, MEDICAL TRANSCRIPTIONIST [address] [place], [place] [id number] 03/10/2025 12:30 PM EDT Appointment [facility] [place], [place] [id number] 03/10/2025 1:00 PM EDT Appointment [facility] [place] [address] Tacho Echavarria MD [address] [place] [address] [id number] 04/29/2025 9:15 AM EDT Appointment [facility] [place] [address] Batool Celis MD [address] [place] [address] CANCER CARE [place], [place] [id number] 05/19/2025 2:15 PM EST Office Visit [facility] [address] [facility] [address] [place] [address] Sin Tran MD [address]00 [place] [address] 08/12/2025 10:40 AM EST Appointment [facility] Women's Wellness [facility] Emilee [place] Carbajal [address] Matt Ulrich MD [address] [place] [address] [place]OR[place] MARTIN [address] documented as of this encounter Goals Goal [...] as of this encounter Care Teams Auto Damage Insurance Appraiser Relationship Specialty [place] [address] [place] [id number] PCP - General 06/21/10 Arlyn Schmidt MD [address] [place], [place] [address] Consulting Physician Internal Medicine-Endocrinology, Diabetes & Metabolism 11/28/20 Tacho Echavarria MD 1 [place] [address] Internal Medicine-Medical Oncology 11/12/23 Matt Ulrich MD 1 [place] [address] Surgery-Surgical Oncology 12/04/23 Eze Brock Pastoral Care 12/13/23 Annette Walker, ARACELI Supervisor Water Treatment Plant 05/13/24 Batool eClis MD 1 [facility] [place] [address] Radiation Oncologist Radiology-Radiation Oncology 06/08/24 documented as of this encounter
--- OUTSIDE RECORDS SUMMARY | 2025-02-19 12:42 | XMS_ITS | Encounter Summary ---
Author Organization [place] [address] Care Team Providers Care Punch Press Feeder Name Role Phone Kit Cedeno MD Primary Care Provider [phone] Arlyn Schmidt MD Unavailable [phone] Cheryl Nair RN Unavailable [phone] Tacho Echavarria MD Unavailable [phone] Matt Ulrich MD Unavailable [phone] Hilary Clemens RN Unavailable Unavaila Eze Caro Unavailable Shila Albrecht RN Unavailable Unavail able Cheyanne To RN Unavailable Unavailabl Rayna Wong RN Unavailable Unavailab Shilpa Olivarez RN Unavailable [phone] Tulio Duong RN Unavailable Unavailable Yaquelin Weaver RN Unavailable Unavailable Pam Wang RN Unavailable Unavailable Jazmín Nair RN Unavailable Unavailable Fidel Rainey RN Unavailable Unavailable Cheryl Nair RN Unavailable [phone] Ophelia Lala RN Unavailable Glo Lee RN Unavailable Unavailab Sanam Evans BENEFIT SPECIALIST Unavailable Unavailable Hilary Clemens RN Unavailable Unavaila Ruthy Clayton RN Unavailable Unavailable Rayna Partida RN Unavailable Unavailab Artur Nelson RN Unavailable Unavailable Annette Walker BENEFIT SPECIALIST Unavailable [phone] Emmie Crain RN Unavailable Unavailable Brigida Enriquez RN Unavailable Unavailable Fidel Rainey RN Unavailable Unavailable Batool Celis MD Unavailable [phone] Encounter Details Date Type Department Care Team (Late st Contact Info) Description 10/25/2023 Orders Only [facility] One [facility] [place] [address] Diane Ellis MD 1 [place] [address] Social History Tobacco Use Types [...] 11:40 AM EDT Office Visit [facility] [address] [place] [address] [place] [address] [place] [address] 03/02/2025 12:45 PM EDT Procedure visit [facility] [address] [facility] [address] [place] [address] Samm Ledesma, CANDLE WRAPPING MACHINE OPERATOR [address] [address] [place] [address] 03/10/2025 12:30 PM EDT Appointment [facility] [place], [place] [id number] 03/10/2025 1:00 PM EDT Appointment [facility] Care Medical Oncology [place], [place] 7054717 Tacho Echavarria MD [address] [place] [address] 82685[address] 04/29/2025 9:15 AM EDT Appointment [facility] RAD ONC [place], [place] [phone] Batool Celis MD 1 [facility] [place] [address] 05/19/2025 2:15 PM EST [facility] [address] [place] [address] [address] [facility] 1D [place] [address] Sin Tran MD [address] [place] [address] 08/12/2025 10:40 AM EST Appointment [facility] Women's Wellness [facility] [address] Matt Ulrich MD 20 [facility] 254 [place], [place] [address] documented as of this encounter Goals Goal [...] 10/25/2023 10:4 4 AM EDT Narrative [facility] LAB - 11/11/2023 7:42 AM EDT Requesting Provider: KIT Womack Specimen = [id number] us Diane Ellis MD PATHOLOGY ORDERABLES Final Resul t [facility] 1 [place], [place] [id number] documented in this encounter Visit Diagnoses Not on filedocumented in this encounter Additional Health Concerns Infection Onset Date Last Indicated Resolved Time COVID-19 09/04/2024 09/04/2024 09/24/2024 10:1 2 PM EDT documented as of this encounter Care Teams Punch Press Feeder Relationship Specialty [place] [address] [place] [address] PCP - General 06/21/10 Arlyn Schmidt MD [address] [place] [address] Consulting Physician Internal Medicine-Endocrinolog y, Diabetes & Metabolism 11/28/20 Cheryl Nair RN Oncology Nurse Navigator 10/29/2302/05 Tacho Echavarria MD 1 [place], [place] 4039517 Internal Medicine-Medical Oncology 11/12/23 Matt Ulrich MD 1 [place], [place] 110[address] Surgery-Surgical Oncology 12/04/23 Hilary Clemens, RN Registered [...] Nurse Infusion Therapy 04/03/24 04/03/24 Sanam Murray, [facility] Employment Instructional Associate 04/10/24 07/30/24 Hilary Clemens, RN Registered Nurse Infusion Therapy 04/21/24 04/21/24 Ruthy Walker RN Registered Nurse Infusion Therapy 04/24/24 04/24/24 Rayna Partida, RN Registered Nurse Infusion Clinic 05/01/24 05/01/24 Artur Roberts RN Registered Nurse Infusion Therapy 05/07/24 05/07/24 Annette Walker, BENEFIT SPECIALIST Employment Instructional Associate 05/13/24 Emmie Crain, RN Registered Nurse Infusion Therapy 05/14/24 05/14/24 Brigida Enriquez, RN Registered Nurse Infusion Clinic 05/21/24 05/21/24 Fidel Rainey, RN Registered Nurse Infusion Therapy 05/28/24 05/28/24 Batool Celis MD [address] [place] [address] [place] [address] Radiation Oncologist Radiology-Radiation Oncology 06/08/24 documented as of this encounter
--- OUTSIDE RECORDS SUMMARY | 2025-02-19 12:42 | XMS_ITS | Encounter Summary ---
Author Organization [place] [address] Care Team Providers Care Welding Pantograph Operator Name Role Phone Kit Cedeno MD Primary Care Provider [phone] Arlyn Schmidt MD Unavailable [phone] Cheryl Nair RN Unavailable [phone] Tacho Echavarria MD Unavailable [phone] Matt Ulrich MD Unavailable [phone] Hilary Clemens RN Unavailable Unavaila Eze Caro Unavailable Shila Albrecht RN Unavailable Unavail able Cheyanne To RN Unavailable Unavailabl Rayna Wong RN Unavailable Unavailab Shilpa Olivarez RN Unavailable [phone] Tulio Duong RN Unavailable Unavailable Yaquelin Weaver RN Unavailable Unavailable Pam Wang RN Unavailable Unavailable Jazmín Nair RN Unavailable Unavailable Fidel Rainey RN Unavailable Unavailable Cheryl Nair RN Unavailable [phone] Ophelia Lala RN Unavailable Glo Lee RN Unavailable Unavailab Sanam Evans CYLINDER DEVALVER Unavailable Unavailable Hilary Clemens RN Unavailable Unavaila Ruthy Clayton RN Unavailable Unavailable Rayna Partida RN Unavailable Unavailab Artur Nelson RN Unavailable Unavailable Annette Walker CYLINDER DEVALVER Unavailable [phone] Emmie Crain RN Unavailable Unavailable Brigida Enriquez RN Unavailable Unavailable Fidel Rainey RN Unavailable Unavailable Batool Celis MD Unavailable [phone] Encounter Details Date Type Department Care Team (Late st Contact Info) Description 10/25/2023 Orders Only [facility] One [facility] [place] [address] Diane Ellis MD 1 [place] [address] Social History Tobacco Use Types [...] 11:40 AM EDT Office Visit [facility] [address] [place] [address] [place] [address] [place] [address] 03/02/2025 12:45 PM EDT Procedure visit [facility] [address] [facility] [address] [place] [address] Samm Ledesma, CONTRACT COORDINATOR [address] [facility] [address] [place] [address] 03/10/2025 12:30 PM EDT Appointment [facility] [place], [place] [id number] 03/10/2025 1:00 PM EDT Appointment Cancer Care Medical Oncology [place], [place] 6933[address] Tacho Echavarria MD [address] [place] [address] [id number] 04/29/2025 9:15 AM EDT Appointment [facility] RAD ONC One [place], [place] 2666417 Batool Celis MD 1 [facility] [place] [address] 05/19/2025 2:15 PM EST Office Visit [facility] [address] [place] [address] [address] [place] [address] Sin Tran MD [address] [place] [address] 08/12/2025 10:40 AM EST Appointment [facility] Women's [facility]ness [place] [facility] [place] [address] Matt Ulrich MD 20 [facility] 254 [place], [place] 45[address] documented as of this encounter Goals Goal [...] EDT) 10/25/2023 10:4 4 AM EDT Narrative [facility] - 11/11/2023 2:42 PM EDT Requesting Provider: KIT Womack Specimen = [id number] us Diaen Ellis MD PATHOLOGY ORDERABLES Final Resul t H LAB 1 [place], [place] 9307117 documented in this encounter Visit Diagnoses Not on filedocumented in this encounter Additional Health Concerns Infection Onset Date Last Indicated Resolved Time COVID-19 09/04/2024 09/04/2024 09/24/2024 10:1 2 PM EDT documented as of this encounter Care Teams Welding Pantograph Operator Relationship Specialty [place] [address] [place] [address] PCP - General 06/21/10 Arlyn Schmidt MD [address] [place] [address] Consulting Physician Internal Medicine-Endocrinolog y, Diabetes & Metabolism 11/28/20 Cheryl Nair RN Oncology Nurse Navigator 10/29/2302/05 Tacho Echavarria MD 1 [place], [place] 4965317 Internal Medicine-Medical Oncology 11/12/23 Matt Ulrich MD 1 [place] [address] Surgery-Surgical Oncology 12/04/23 Hilary Clemens, RN Registered [...] RN Registered Nurse Infusion Therapy 03/05/24 03/05/24 Cherly Nair RN Oncology Nurse Navigator 03/25/2412/13 Ophelia Lala, RN Registered Nurse Infusion Therapy 03/27/24 03/27/24 Glo Lee, RN Registered Nurse Infusion Therapy 04/03/24 04/03/24 Sanam Murray, [facility] Linoleum Installer 04/10/24 07/30/24 Hilary Clemens, RN Registered Nurse Infusion Therapy 04/21/24 04/21/24 Ruthy Walker RN Registered Nurse Infusion Therapy 04/24/24 04/24/24 Rayna Partida, RN Registered Nurse Infusion Clinic 05/01/24 05/01/24 Artur Roberts RN Registered Nurse Infusion Therapy 05/07/24 05/07/24 Annette Walker, CYLINDER DEVALVER Linoleum Installer 05/13/24 Emmie Crain, RN Registered Nurse Infusion Therapy 05/14/24 05/14/24 Brigida Enriquez, RN Registered Nurse Infusion Clinic 05/21/24 05/21/24 Fidel Rainey, RN Registered Nurse Infusion Therapy 05/28/24 05/28/24 Batool Celis MD [address] [place] [address] [place] [address] Radiation Oncologist Radiology-Radiation Oncology 06/08/24 documented as of this encounter
--- OUTSIDE RECORDS SUMMARY | 2025-02-19 12:42 | XMS_ITS | Encounter Summary ---
Author Organization [place] [address] Care Team Providers Care Enrollment Nurse Name Role Phone Chetna Cedeno MD Primary Care Provider [phone] Arlyn Schmidt MD Unavailable [phone] Tacho Echavarria MD Unavailable [phone] Matt Ulrich MD Unavailable [phone] Eze Brock Unavailable Annette Walker Unavailable [phone] Batool Celis MD Unavailable [phone] Reason for Visit * Reason Onset Date Comments Other 02/03/2025 Pain pump meds Encounter Details Date Type Department Care Team (Late st Contact Info) Description 02/03/2025 Telephone [facility] [address] [address] Sin Tran MD [address] [place] [address] Other (Pain pump meds) Social History [...] from your doctor or pharmacy? Never 11/07/2023 [facility] Utilities Answer Date [...] any time in the past 12 m [facility], were you homeless or living in a detention (including now)? No 11/07/2023 [facility] IP Transportation Answer D [...] 11:40 AM EDT Office Visit [facility] [address] [place] [address] [place] [address] [place] [address] 03/02/2025 12:45 PM EDT Procedure visit [facility] [address] [facility] [address] [place] [address] Samm Ledesma, PRODUCTION SUPV [address] [facility] [address] [place] [address] 03/10/2025 12:30 PM EDT Appointment [place] [address] 03/10/2025 1:00 PM EDT Appointment [place] [address] Tacho Echavarria MD [address] [place] [address] 04/29/2025 9:15 AM EDT Appointment [facility] RAD ONC One [place], [place] 39258[address] Batool Celis MD 1 [facility] [place] [address] 05/19/2025 2:15 PM EST Office Visit [address] [address] Sin Tran MD [address] [place] [address] 08/12/2025 10:40 AM EST Appointment [facility] Women's Wellness [facility] [place] [id number] Matt Ulrich MD 20 [facility] 254 [place] [id number] documented as of this encounter Goals Goal [...] documented as of this encounter Care Teams Enrollment Nurse Relationship Specialty [place] [address] [place] [address] PCP - General 06/21/10 Arlyn Schmidt MD [address] [place], [place] 5[address] Consulting Physician Internal Medicine-Endocrinology, Diabetes & Metabolism 11/28/20 Tacho Echavarria MD 1 [place] [address] Internal Medicine-Medical Oncology 11/12/23 Matt Ulrich MD 1 [place], [place] 59[address] Surgery-Surgical Oncology 12/04/23 Eze Brock Pastoral Care 12/13/23 Annette Walker, ARACELI Transporter Driver 05/13/24 Batool Celis MD 1 [facility] CANCER CARE [place], [place] 45[address] Radiation Oncologist Radiology-Radiation Oncology 06/08/24 documented as of this encounter
--- OUTSIDE RECORDS SUMMARY | 2025-02-19 12:42 | XMS_ITS | Encounter Summary ---
Author [place] [address] Care Team Providers Care Cork Molder Name Role Phone Chetna Cedeno MD Primary Care Provider [phone] Arlyn Schmidt MD Unavailable [phone] Tacho Echavarria MD Unavailable [phone] Matt Ulrich MD Unavailable [phone] Eze Brock Unavailable Annette Walker Unavailable [phone] Batool Celis MD Unavailable [phone] Reason for Visit * Reason Comments [facility] En[facility] Details Date Type Department Care Team (Latest Contact Info) Description 02/02/2025 Specialty Pharmacy [facility] [address] [place] [address] Kevni Chacon PharmD Pharmacy [facility] Social History Tobacco Use Types [...] th e electric, gas, oil, or water Heavy threatened to shut off services in your [...] Date Recorded PHQ-2 Total Score 5 07/07/2024 [facility] [place] of Occupat ional Health - Occupational [...] a senior care (including now)? No 11/07[facility]2023 [facility] IP Transportation [...] Chacon PharmD - 02/02/2025 1:[address] [facility] Prescription received for Nurtec (75mg). Prescription requires prior authorization. Will complete clinical review. Patient will not need IA if able to fill here (continuation of therapy). * Kevin Chacon PharmD - 02/02/2025 1:[address] [facility] - Migraine Clinical Review El [...] into the lungs daily. fluticasone propionate 1 [place] by Nasal route daily. Aerochamber MV 1 [facility]Non-Drug; Combo Route) route as needed. ketorolac Take [...] Monson CPhT - 02/02/2025 1:[address] [facility] Prior [facility]ization [facility] [employer] insurance via [employer] ([employer] [id number]). Will follow up on 02/04. * Annamarie Mark CPhT - 02/02/2025 1:[address] [facility] Prior Authorization Determination Received notice of PA approval for [facility] . PA approved from 02/02/2025 to 05/05/2025. Patient is able to fill at [facility]. Copay is $0. No answer, left voicemail to call [phone], option 4. Initial assessment not needed for [...] AM EDT Office [facility] [address] [place] [address] [place] [address] [place] [address] 03/02/2025 12:45 PM EDT Procedure visit [facility] [address] [facility] [address] [place] [address] Samm Ledesma APRN [address] [facility] [address] [place] [address] 03/10/2025 12:30 PM EDT Appointment [place] [address] 03/10/2025 1:00 PM EDT Appointment [facility] [place] [address] Tacho Echavarria MD [address] [place] [address] [id number] 04/29/2025 9:15 AM EDT Appointment [place] [address] Batool Celis MD [address] [facility] [address] [place] [address] 05/19/2025 2:15 PM EST Office Visit [facility] [address] [place] [address] Sin Tran MD [address] [place] [address] [place] [address] 08/12/2025 10:40 AM EST Appointment [facility] Women's Wellness [place] [facility] [place] [address] Matt Ulrich MD [address] [address] documented as of this encounter [...] documented as of this encounter Care Teams Cork Molder Relationship Specialty [place] [address] [place] [address] PCP - General 06/21/10 Arlyn Schmidt MD [address] [place], [place] 3066[address] Consulting Physician Internal Medicine-Endocrinology, Diabetes & Metabolism 11/28/20 Tacho Echavarria MD 1 [place], [place] 0835[address] Internal Medicine-Medical Oncology 11/12/23 Matt Ulrich MD 1 [place], [place] 57[address] Surgery-Surgical Oncology 12/04/23 Eze Brock Pastoral Care 12/13/23 Annette Walker, RIVER CAPTAIN Field Marketing Coordinator 05/13/24 Batool Celis MD 1 [facility] CANCER [place], [place] 17[address] Radiation Oncologist Radiology-Radiation Oncology 06/08/24 documented as of this encounter
--- OUTSIDE RECORDS SUMMARY | 2025-02-19 12:42 | XMS_ITS | Encounter Summary ---
Author [place] [address] Care Team Providers Care Arabic Translator Name Role Phone Chetna Cedeno MD Primary Care Provider [phone] Arlyn Schmidt MD Unavailable [phone] Tacho Echavarria MD Unavailable [phone] Matt Ulrich MD Unavailable [phone] Eze Brock Unavailable Annette Walker WINDSHIELD TECHNICIAN Unavailable [phone] Batool Celis MD Unavailable [phone] Encounter Details Date Type Department Care Team (Late st Contact Info) Description 02/01/2025 Social Work [facility] Cancer Care [facility] [place] [address] Sonny Fleming, WINDSHIELD TECHNICIAN Social History Tobacco Use Types Packs/Day Years [...] th e electric, gas, oil, or water [employer] threatened to shut off services in your [...] Date Recorded PHQ-2 Total Score 5 07/07/2024 [facility] of Occupat ional Health - Occupational Stress [...] in a fdc (including now)? No 11/07/2023 [facility] [...] 12/06/2022 2:08 PM Macraena Henson CCMA * Does this person have [...] - 02/01/2025 3:04 PM EDT 02/01/25 1504 Dot Etcher Apprentice Assessment Referred By Pt. Call Disease/[place] [facility] Speech Pathology Supervisor Assignment Breast cancer Referral Location: [facility] [...] 11:40 AM EDT Office Visit ROMULO Mahmood [address] [place] [address] [place] [address] [place] [address] 03/02/2025 12:45 PM EDT Procedure visit [facility] [address] [place] [address] Samm Ledesma, UNISAW OPERATOR [address] [place] [address] 03/10/2025 12:30 PM EDT Appointment [facility] [place], [place] [id number] 03/10/2025 1:00 PM EDT Appointment [facility] [place] [address] Tacho Echavarria MD [address] [place] [address] [id number] 04/29/2025 9:15 AM EDT Appointment [facility] [address] Batool Celis MD [address] [place] [address] [place] [address] 05/19/2025 2:15 PM EST Office Visit [address] [address] Sin Tran MD [address] [place] [address] 08/12/2025 10:40 AM EST Appointment [facility] Women's Wellness [facility] [place] [address] aMtt Ulrich MD [address] [place], [place] [id number] documented as of this encounter Goals Goal [...] documented as of this encounter Care Teams Arabic Translator Relationship Specialty [place] [address] [place] [address] PCP - General 06/21/10 Arlyn Schmidt MD [address] [place] [address] Consulting Physician Internal Medicine-Endocrinology, Diabetes & Metabolism 11/28/20 Tacho Echavarria MD 1 [place] [address] Internal Medicine-Medical Oncology 11/12/23 Matt Ulrich MD 1 [place], [place] [id number] Surgery-Surgical Oncology 12/04/23 Eze Brock Pastoral Care 12/13/23 Annette Walker MSW Speech Pathology Supervisor 05/13/24 Batool Celis MD 1 [facility] [place], [place] [address] Radiation Oncologist Radiology-Radiation Oncology 06/08/24 documented as of this encounter
--- OUTSIDE RECORDS SUMMARY | 2025-02-19 12:42 | XMS_ITS | Encounter Summary ---
Author Organization [place] [address] Care Team Providers Care Hoist Mechanic Name Role Phone Kit Cedeno MD Primary Care Provider [phone] Arlyn cShmidt MD Unavailable [phone] Cheryl Nair RN Unavailable [phone] Tacho Echavarria MD Unavailable [phone] Matt Ulrich MD Unavailable [phone] Hilary Clemens RN Unavailable Unavaila Eze Caro Unavailable Shila Albrecht RN Unavailable Unavail able Cheyanne To RN Unavailable Unavailabl Rayna Wong RN Unavailable Unavailab Shilpa Olivarez RN Unavailable [phone] Tulio Duong RN Unavailable Unavailable Yaquelin Weaver RN Unavailable Unavailable Pam Wang RN Unavailable Unavailable Jazmín Nair RN Unavailable Unavailable Fidel Rainey RN Unavailable Unavailable Cheryl Nair RN Unavailable [phone] Ophelia Lala RN Unavailable Glo Lee RN Unavailable Unavailab Sanam Evans STRADDLE CARRIER OPERATOR Unavailable Unavailable Hilary Clemens RN Unavailable Unavaila Ruthy Clayton RN Unavailable Unavailable Rayna Partida RN Unavailable Unavailab Artur Nelson RN Unavailable Unavailable Annette Walker STRADDLE CARRIER OPERATOR Unavailable [phone] Emmie Crain RN Unavailable Unavailable Brigida Enriquez RN Unavailable Unavailable Fidel Rainey RN Unavailable Unavailable Batool Celis MD Unavailable [phone] Encounter Details Date Type Department Care Team (Late st Contact Info) Description 10/25/2023 Orders Only [facility] [address] [facility] [place] [address] Diane Ellis MD 1 [place] [address] Social History Tobacco Use Types [...] 11:40 AM EDT Office Visit SEP Mahmood [address] [place] [address] [place] [address] [place] [address] 03/02/2025 12:45 PM EDT Procedure visit [facility] [address] [facility] [address] [place] [address] Samm Ledesma, DRY CURER [address] [facility] [address] [place] [address] 03/10/2025 12:30 PM EDT Appointment [facility] [place], [place] [id number] 03/10/2025 1:00 PM EDT Appointment [facility] Care Medical Oncology [place], [place] 8209617 Tacho Echavarria MD [address] [place] [address] [id number] 04/29/2025 9:15 AM EDT Appointment [facility] RAD ONC [place], [place] 9553817 Batool Celis MD 1 [facility] [place] [address] 05/19/2025 2:15 PM EST Office Visit [facility] [address] [place] [address] [address] [place] [address] Sin Tran MD [address] [place] [address] 08/12/2025 10:40 AM EST Appointment [facility] Women's Wellness [place] [facility] [place] [address] Matt Ulrich MD 20 [facility] 254 [place], [place] 04[address] documented as of this encounter Goals Goal [...] 10/25/2023 10:4 4 AM EDT Narrative [facility] LAB - 11/06/2023 7:12 PM EDT Requesting Provider: KIT Womack Specimen = [id number] us Diane Ellis MD PATHOLOGY ORDERABLES Final Resul t [facility] 1 [place], [place] [id number] documented in this encounter Visit Diagnoses Not on filedocumented in this encounter Additional Health Concerns Infection Onset Date Last Indicated Resolved Time COVID-19 09/04/2024 09/04/2024 09/24/2024 10:1 2 PM EDT documented as of this encounter Care Teams Hoist Mechanic Relationship Specialty [place] [address] [place] [address] PCP - General 06/21/10 Arlyn Schmidt MD [address] [place] [address] Consulting Physician Internal Medicine-Endocrinolog y, Diabetes & Metabolism 11/28/20 Cheryl Nair, RN Oncology Nurse Navigator 10/29/2302/05 Tacho Echavarria MD 1 [place], [place] 8956217 Internal Medicine-Medical Oncology 11/12/23 Matt Ulrich MD 1 [place] [address] Surgery-Surgical Oncology 12/04/23 Hilary Clemens, RN Registered [...] Nurse Infusion Therapy 04/03/24 04/03/24 Sanam Murray, [facility] Online Marketing Strategist 04/10/24 07/30/24 Hilary Clemens, RN Registered Nurse Infusion Therapy 04/21/24 04/21/24 Ruthy Walker RN Registered Nurse Infusion Therapy 04/24/24 04/24/24 Rayna Partida, RN Registered Nurse Infusion Clinic 05/01/24 05/01/24 Artur Roberts RN Registered Nurse Infusion Therapy 05/07/24 05/07/24 Annette Walker, STRADDLE CARRIER OPERATOR Online Marketing Strategist 05/13/24 Emmie Crain, RN Registered Nurse Infusion Therapy 05/14/24 05/14/24 Brigida Enriquez, RN Registered Nurse Infusion Clinic 05/21/24 05/21/24 Fidel Rainey, RN Registered Nurse Infusion Therapy 05/28/24 05/28/24 Batool Celis MD [address] [place] [address] [place] [address] Radiation Oncologist Radiology-Radiation Oncology 06/08/24 documented as of this encounter
--- OUTSIDE RECORDS SUMMARY | 2025-02-19 12:42 | XMS_ITS | Encounter Summary ---
Author Organization [place] [address] Care Team Providers Care Circular Saw Operator Name Role Phone Kit Cedeno MD Primary Care Provider [phone] Arlyn Schmidt MD Unavailable [phone] Cheryl Nair RN Unavailable [phone] Tacho Echavarria MD Unavailable [phone] Matt Ulrich MD Unavailable [phone] Hilary Clemens RN Unavailable Unavaila Eze Caro Unavailable Shila Albrecht RN Unavailable Unavail able Cheyanne To RN Unavailable Unavailabl Rayna Wong RN Unavailable Unavailab Shilpa Olivarez RN Unavailable [phone] Tulio Duong RN Unavailable Unavailable Yaquelin Weaver RN Unavailable Unavailable Pam Wang RN Unavailable Unavailable Jazmín Nair RN Unavailable Unavailable Fidel Rainey RN Unavailable Unavailable Cheryl Nair RN Unavailable [phone] Ophelia Lala RN Unavailable Glo Lee RN Unavailable Unavailab Sanam Evans ORCHESTRA MUSICIAN Unavailable Unavailable Hilary Clemens RN Unavailable Unavaila Ruthy Clayton RN Unavailable Unavailable Rayna Partida RN Unavailable Unavailab Artur Nelson RN Unavailable Unavailable Annette Walker ORCHESTRA MUSICIAN Unavailable [phone] Emmie Crain RN Unavailable Unavailable Brigida Enriquez RN Unavailable Unavailable Fidel Rainey RN Unavailable Unavailable Batool Celis MD Unavailable [phone] Encounter Details Date Type Department Care Team (Late st Contact Info) Description 10/25/2023 Orders Only [facility] [place] [address] Diane Ellis MD 1 [place] [address] Social History Tobacco Use Types [...] 11:40 AM EDT Office Visit SEP Mahmood [address] [place] [address] [place] [address] [place] [address] 03/02/2025 12:45 PM EDT Procedure visit [facility] [address] [facility] [address] [place] [address] Samm Ledesma, BOATHOUSE KEEPER [address] [facility] [address] [place] [address] 03/10/2025 12:30 PM EDT Appointment [facility] [place], [place] [id number] 03/10/2025 1:00 PM EDT Appointment Cancer Care Medical Oncology [place], [place] 8971217 Tacoh Echavarria MD [address] [place] [address] [id number] 04/29/2025 9:15 AM EDT Appointment [facility] RAD ONC [place], [place] [phone] Batool Celis MD 1 [facility] [place] [address] 05/19/2025 2:15 PM EST Office Visit [facility] [address] [place] [address] 401 [facility] 1D [place] [address] Sin Tran MD [address] [place] [address] 08/12/2025 10:40 AM EST Appointment [facility] Women's Wellness [place] [address] Matt Ulrich MD 20 [facility] 254 [place], [place] [id number] documented as of this encounter Goals Goal [...] Narrative [facility] LAB - 11/01/2023 3:02 PM EDT Requesting Provider: KIT Womack Specimen = [id number] us Diane Ellis MD PATHOLOGY ORDERABLES Final Resul t [facility] 1 [place], [place] [id number] documented in this encounter Visit Diagnoses Not on filedocumented in this encounter Additional Health Concerns Infection Onset Date Last Indicated Resolved Time COVID-19 09/04/2024 09/04/2024 09/24/2024 10:1 2 PM EDT documented as of this encounter Care Teams Circular Saw Operator Relationship Specialty [place] [address] [place] [address] PCP - General 06/21/10 Arlyn Schmidt MD [address] [place] [address] Consulting Physician Internal Medicine-Endocrinolog y, Diabetes & Metabolism 11/28/20 Cheryl Nair RN Oncology Nurse Navigator 10/29/2302/05 Tacho Echavarria MD 1 [place], [place] 1960[address] Internal Medicine-Medical Oncology 11/12/23 Matt Ulrich MD 1 [place], [place] 0342917 Surgery-Surgical Oncology 12/04/23 Hilary Clemens, RN Registered [...] Therapy 04/03/24 04/03/24 Sanam Murray, [facility] Columnist/Commentator 04/10/24 07/30/24 Hilary Clemens, RN Registered Nurse Infusion Therapy 04/21/24 04/21/24 Ruthy Walker RN Registered Nurse Infusion Therapy 04/24/24 04/24/24 Rayna Partida, RN Registered Nurse Infusion Clinic 05/01/24 05/01/24 Artur Roberts RN Registered Nurse Infusion Therapy 05/07/24 05/07/24 Annette Walker, ORCHESTRA MUSICIAN Columnist/Commentator 05/13/24 Emmie Crain, RN Registered Nurse Infusion Therapy 05/14/24 05/14/24 Brigida Enriquez, RN Registered Nurse Infusion Clinic 05/21/24 05/21/24 Fidel Rainey, RN Registered Nurse Infusion Therapy 05/28/24 05/28/24 Batool Celis MD [address] [place] [address] [place] [address] Radiation Oncologist Radiology-Radiation Oncology 06/08/24 documented as of this encounter
--- OUTSIDE RECORDS SUMMARY | 2025-02-19 12:42 | XMS_ITS | Encounter Summary ---
Author Organization [place] [address] Care Team Providers Care Flight Radio Officer Name Role Phone Chetna Cedeno MD Primary Care Provider [phone] Arlyn Schmidt MD Unavailable [phone] Tacho Echavarria MD Unavailable [phone] Matt Ulrich MD Unavailable [phone] Eze Brock Unavailable Annette Walker Unavailable [phone] Batool Celis MD Unavailable [phone] Reason for Visit * Reason Onset Date Comments Appointment Needed 02/04/2025 Encounter Details Date Type Department Care Team (Late st Contact Info) Description 02/04/2025 Telephone [facility] [place] [address] Aliya Harden, Clerical Staff Appointment [...] from your doctor or pharmacy? Never 11/07/2023 [facility] Utilities Answer Date Recorded In the past 12 months has th e electric, gas, oil, or water [employer] threatened to shut off services in your [...] Date Recorded PHQ-2 Total Score 5 07/07/2024 [facility] [place] of Occupat ional Health - [...] home (including now)? No 11/07/2023 [facility] IP Transportation Answer D ate [...] 11:40 AM EDT Office Visit ROMULO MERRITT [address] [place] [address] [place] [address] [place] [address] 03/02/2025 12:45 PM EDT Procedure visit [facility] [address] [facility] [address] [place] [address] Samm Ledesma, BOARDING HOUSE MANAGER [address] [facility] [address] [place] [id number] 03/10/2025 12:30 PM EDT Appointment [place] [address] 03/10/2025 1:00 PM EDT Appointment [facility] [place] [address] Tacho Echavarria MD [address] [place] [address] [id number] 04/29/2025 9:15 AM EDT Appointment [facility] [address] Batool Celis MD [address] [place] [address] 05/19/2025 2:15 PM EST Office Visit [address] [address] Sin Tran MD [address] [place] [address] 08/12/2025 10:40 AM EST Appointment [facility] Women's Wellness [facility] [place] [address] Matt Ulrich MD [address] [place] [address] 254 [place] [address] documented as of this encounter Goals Goal [...] documented as of this encounter Care Teams Flight Radio Officer Relationship Specialty [place] [address] [place] [address] PCP - General 06/21/10 Arlyn Schmidt MD [address] [place] [address] Consulting Physician Internal Medicine-Endocrinology, Diabetes & Metabolism 11/28/20 Tacho Echavarria MD 1 [place] [address] Internal Medicine-Medical Oncology 11/12/23 Matt Ulrich MD 1 [place] [address] Surgery-Surgical Oncology 12/04/23 Eze Brock Pastoral Care 12/13/23 Jasmyn Walkerica, INSULATION CUPOLA OPERATOR Deposit Clerk 05/13/24 Batool Celis MD [address] [place] [address] [place] [address] Radiation Oncologist Radiology-Radiation Oncology 06/08/24 documented as of this encounter
--- OUTSIDE RECORDS SUMMARY | 2025-02-19 12:43 | XMS_ITS | Encounter Summary ---
Author Organization [place] [address] Care Team Providers Care Gas Technician Name Role Phone Chetna Cedeno MD Primary Care Provider [phone] Arlyn Schmidt MD Unavailable [phone] Tacho Echavarria MD Unavailable [phone] Matt Ulrich MD Unavailable [phone] Eze Brock Unavailable Annette Walker Unavailable [phone] Batool Celis MD Unavailable [phone] Reason for Visit * Reason Onset Date Comments Symptom Call 02/05/2025 lightheaded / he adache Encounter Details Date Type Department Care Team (Late st Contact Info) Description 02/05/2025 Telephone [facility] Medical Oncology [place], [place] [phone] Tacho Echavarria MD [address] [place] [address] [phone] Symptom Call (lightheaded / headache ) Social [...] from your doctor or pharmacy? Never 11/07/2023 [facility] Utilities Answer Date Recorded In [...] now)? No 11/07/2023 [facility] IP Transportation Answer D ate [...] relief. Rates 4/10. Went to ER in [facility] last week r/t diarrhea, K was 2.5 [...] seen at: [facility] Preferred call back number: [phone] Explained to the caller, if this is a medical emergency please call 911 or go to the nearest emergency room. documented in this encounter Plan of Treatment Upcoming Encounters Date Type Department Care Team (Late st Contact Info) Description 03/02/2025 11:40 AM EDT Office Visit ROMULO Mahmood [address] [place] [address] [place] [address] [place] [address] 03/02/2025 12:45 PM EDT Procedure visit [facility] [address] [facility] [address] [place] [address] Samm Ledesma, SWATCHER [address] [facility] [address] [place] [address] 03/10/2025 12:30 PM EDT Appointment [place] [address] 03/10/2025 1:00 PM EDT Appointment [facility] Medical Oncology [place], [place] [phone] Tacho Echavarria MD [address] [place] [address] [id number] 04/29/2025 9:15 AM EDT Appointment [facility] [place] [address] Batool Celis MD [address] [place] [address] DR CANCER CARE [place] [id number] 05/19/2025 2:15 PM EST Office Visit [address] [address] Sin Tran MD [address] [place] [address] 08/12/2025 10:40 AM EST Appointment [facility] Women's Wellness [facility] [place] [address] Matt Ulrich MD [address] [place] [address] documented as of this encounter Goals Goal Patient Goal Type Associated Problems Recent Progress Patient-Stated? Author Blood Pressure < 140/90 Blood Pressure 121/77(02/04 2:04 PM EDT) No Chetna Cedeno MD Breast Health Breast Health On track(2024 11:27 AM EDT) No Jasmin Potrer RN Note: Patient acknowledges understanding of new [...] documented as of this encounter Care Teams Gas Technician Relationship Specialty [place] [address] [place] [address] PCP - General 06/21/10 Arlyn Schmidt MD [address] [place], [place] 57[address] Consulting Physician Internal Medicine-Endocrinology, Diabetes & Metabolism 11/28/20 Tacho Echavarria MD 1 [place] [address] Internal Medicine-Medical Oncology 11/12/23 Matt Ulrich MD 1 [place] [address] Surgery-Surgical Oncology 12/04/23 Eze Brock Pastoral Care 12/13/23 Annette Walker MSW Rehab Department Manager 05/13/24 Batool Celis MD [address] [place] [address] [place] [address] Radiation Oncologist Radiology-Radiation Oncology 06/08/24 documented as of this encounter
--- OUTSIDE RECORDS SUMMARY | 2025-02-19 12:43 | XMS_ITS | Referral Summary ---
Author Organization [facility] Address [address] [place] [address] Phone Care Team Providers Care Relay Worker Name Role Phone Chetna Cedeno MD Primary Care Provider Encounters Date Type Department Care Team Description 01/02/2025 4:26 PM EDT - 01/02/2025 7:27 PM EDT Emergency [facility] Emergency Department [address] [place] [address] Dallin Espinoza MD Heat exhaustion, [...] NITROGEN 16 8 - 26 mg/dL [facility] SODIUM 140 135 - 145 mmol/L [facility] POTASSIUM 3.2(L) 3.6 - 5.1 mmol/L [facility] CHLORIDE 107 98 - 111 mmol/L [facility] CO2 20(L) 21 - 31 mmol/L [facility] GLUCOSE, RANDOM 89 70 - 99 mg/dL [facility] CREATININE 1.06 0.60 - 1.20 mg/dL [facility] ANION GAP 13 4 - 16 mmol/L [facility] CALCIUM 9.0 8.5 - 10.4 mg/dL [facility] ESTIMATED GFR 61 >59 mL/min/1.7 3 m2 [facility] Comment: Estimated GFR was calculated using the CKD-EPI cr (2020) equation refit without race. The equation is recommended by the National Kidney Foundation - [place] [employer] of Nephrology Task Force. Tested at [facility] [id number] [place] [address] Whole Blood 01/02/2025 5:13 PM EDT 01/02/2025 5:25 PM EDT us Dallin Espinoza MD LAB BLOOD ORDERABLES Final Result [facility] [address] [place] [address] [address] * (ABNORMAL) CBC w/ Diff (01/02/2025 5:13 PM EDT) WBC 7.1 3.6 - 10.5 THOU/mcL [facility] RBC 3.75(L) 3.80 - 5.20 MIL/mcL [facility] HEMOGLOBIN 11.2(L) 12.0 - 15.2 g/dL [facility] HEMATOCRIT 33.6(L) 36 - 46 % [facility] MCV 89.6 82 - 97 fL [facility] MCH 30.0 27 - 33 pg [facility] MCHC 33.5 32 - 36 g/dL [facility] RDW 16.0 12.3 - 17.0 % [facility] PLATELET 206 140 - 375 THOU/mcL [facility] MPV 6.9(L) 7.0 - 11.5 fL [facility] ABS. NEUTROPHIL 3.60 1.80 - 7.70 THOU/mcL [facility] ABS LYMPHS 3.00 1.00 - 4.00 THOU/mcL [facility] ABS MONOS 0.30 0.20 - 0.90 THOU/mcL [facility] ABS EOS 0.10 0.03 - 0.45 THOU/mcL [facility] ABS BASOS 0.10 0.00 - 0.20 THOU/mcL [facility] SEGS 51 % [facility] LYMPHOCYTES 43 % CHEMISTR Y NORTH MONOCYTES 4 % CHEMISTR[facility] NORTH EOSINOPHIL 1 % CHEMISTR[facility]TH BASOPHILS 1 % [facility] Comment:Tested at [facility] [address] [facility] [address] Whole Blood 01/02/2025 5:13 PM EDT 01/02/2025 5:25 PM EDT Dallin Espinoza MD LAB BLOOD ORDERABLES Final Result [facility] [address] [place] [address] CHE[facility]STR[facility] [address] [place] [address] * ECG 12 lead (01/02/2025 4:37 PM [...] QTcF 417 ms TH TRACEMASTER QRS Horizontal [place] -19 deg TH TRACEMASTER QRS AXIS 16 deg TH TRACEMASTER I-40 Horizontal [place] 46 deg TH TRACEMASTER I-40 FRONT AXIS -17 deg TH TRACEMASTER T-40 Horizontal [place] -50 deg TH TRACEMASTER T-40 Front [place] 51 deg TH TRACEMASTER T Horizontal [place] 52 deg TH TRACEMASTER T WAVE AXIS 16 deg TH TRACEMASTER S-T Horizontal [place] 60 deg TH TRACEMASTER S-T Front [place] 24 deg TH TRACEMASTER ECG IMPRESSION - BORDERLINE ECG - TH TRACEMASTER ECG IMPRESSION SR-Sinus rhythm-normal P axis, V-rate 50-99 TH TRACEMASTER ECG IMPRESSION LVHVP-Probable left ventricular hypertrophy-mul tiple LVH criteria TH TRACEMASTER ECGGUID [id number] TH TRACEMASTER 01/02/2025 4:37 PM EDT us Dallin Espinoza MD ECG ORDERABLES Final Resu lt TH TRACEMASTER from Last 3 Months Insurance [facility] MEDICAID Care Teams Relay Worker Relationship Specialty Start Date End Date Chetna Cedeno MD [facility] [address] [place] [address] PCP - General Family Medicine 01/02/25
--- OUTSIDE RECORDS SUMMARY | 2025-02-19 12:43 | XMS_ITS | Encounter Summary ---
Author [place] [address] Care Team Providers Care Cook Fishing Vessel Name Role Phone Chetna Cedeno MD Primary Care Provider [phone] Arlyn Schmidt MD Unavailable [phone] Tacho Echavarria MD Unavailable [phone] Matt Ulrich MD Unavailable [phone] Eze Brock Unavailable Annette Walker Unavailable [phone] Batool Celis MD Unavailable [phone] Reason for Visit * Reason Onset Date Comments Integrative Oncology Referral 02/05/2025 Encounter Details Date Type Department Care Team (Late st Contact Info) Description 02/05/2025 Telephone [facility] ONC [place], [place] [id number] Narda Vickers, Clerical Staff Integrative Oncology Referral [...] Never 11/07/2023 [facility] Utilities Answer Date Recorded In the past 12 months has th e electric, gas, oil, or water [employer] threatened to shut off services in your [...] PHQ-2 Total Score 5 07/07/2024 [facility] [place] of Occupat ional Health - Occupational Stress [...] in a mcc (including now)? No 11/07/2023 [facility] IP Transportation Answer D [...] Clerical Staff - 02/05/2025 11:38 AM EDT Servergy message sent with Integrative Oncology information and newsletter. Narda documented in this encounter Plan of Treatment Upcoming Encounters Date Type Department Care Team (Late st Contact Info) Description 03/02/2025 11:40 AM EDT Office Visit [facility] [address] [place] [address] [place] [address] [place] [address] 03/02/2025 12:45 PM EDT Procedure visit [facility] [address] [place] [address] Samm Ledesma, REAL ESTATE MARKETING COORDINATOR [address] [place] [address] 03/10/2025 12:30 PM EDT Appointment [place] [address] 03/10/2025 1:00 PM EDT Appointment [facility] [place] [address] Tacho Echavarria MD [address] [place] [address] 04/29/2025 9:15 AM EDT Appointment [facility] ONC [place], [place] [phone] Batool Celis MD 1 [facility] [place] [address] 05/19/2025 2:15 PM EST [facility] [address] [facility] 401 [facility] 1D [place] [address] Sin Tran MD [facility]0 [facility] [place] [address] 08/12/2025 10:40 AM EST Appointment [facility] Women's Wellness [place] One [facility] [place] [address] Matt Ulrich MD 20 [facility] 254 [place] [address] documented as of this encounter [...] as of this encounter Care Teams Cook Fishing Vessel Relationship Specialty Start [place] [address] [place] [address] PCP - General 06/21/10 Arlyn Schmidt MD [address] [place] [address] Consulting Physician Internal Medicine-Endocrinology, Diabetes & Metabolism 11/28/20 Tacho Echavarria MD 1 [place] [address] Internal Medicine-Medical Oncology 11/12/23 Matt Ulrich MD 1 [place] [address] Surgery-Surgical Oncology 12/04/23 Eze Brock Pastoral Care 12/13/23 Annette Walker, ARACELI Mumps Developer 05/13/24 Batool Celis MD 1 [facility] [place] [address] Radiation Oncologist Radiology-Radiation Oncology 06/08/24 documented as of this encounter
--- NOTE | 2025-02-19 13:00 | US_ITS ---
FINAL REPORT CLINICAL HISTORY: ABNORMAL CT SCAN soft tissue nodules lateral right chest wall COMPARISON: CTA chest 01/30/2025 FINDINGS: Limited sonographic images were obtained of the area of reported palpable abnormality in the right lateral chest. There are numerous solid-appearing nodules in the right chest wall soft tissues ranging in size from 5 mm to 10 mm. Given history of malignancy, metastasis is is questioned. Larger lesions are amenable to image guided FNA. Diffusely air these lack the appearance of cysts. IMPRESSION: Soft tissue nodules right chest wall region of interest measuring up to 10 mm may represent metastasis. Consider ultrasound-directed FNA. Reviewed, Interpreted and Dictated by Abi Sotelo MD Transcribed by Aviva Manzano Authenticated and [facility]
== END 2025-02-19 23:59 | disposition home or self-care (01) ==
LOC: RAD 12:36
PROVIDERS: PCP Family Medicine; Visit Provider Internal Medicine Medical Oncology
DX: C50.919 Malignant neoplasm of unspecified site of unspecified female breast (principal); R91.8 Other nonspecific abnormal finding of lung field
CPT/HCPCS: 76604

== ENCOUNTER 2025-02-19 13:33 | Emergency (ER) | payer MEDICAID, SELFPAY ==
--- OUTSIDE RECORDS SUMMARY | 2025-01-02 16:26 | XMS_ITS | Encounter Summary ---
Author Organization [facility] Address [facility] [place] [address] Phone Care Team Providers Care Behavioral Health Associate Name Role Phone Chetna Cedeno MD Primary Care Provider [phone] Reason for Visit * Reason Comments Heat Exposure Patient arrives via EMS from an event outside, states she was in [facility] and felt lightheaded, went to a [...] EDT - 01/02/2025 7:27 PM EDT Emergency [facility] Emergency Department [address] [place] [phone] [place] [address] [place] [address] Heat exhaustion, unspecified, initial encounter [T67.5XXA] Discharge [...] Care Everywhere. * POTASSIUM CONTENT OF FOODS (BELARUSIAN) documented in this encounter Medications at Time [...] be directed to the Care Management Departments: [facility] [phone] or [facility] [phone] or [facility] [phone]. documented in this encounter ED Notes * Dallin Espinoza MD - 01/02/2025 4:48 PM EDT Images from the original note were not included. [facility] EMERGENCY DEPARTMENT ED Encounter Arrival Date: 01/02/251624 Meri Cole : 1965 [address] [place] [address] CSN: [id number] GIO: [id number] EMERGENCY DEPARTMENT - GENERAL NOTE CHIEF COMPLAINT Chief Complaint Patient presents with Heat Exposure Patient arrives via EMS from an event outside, states she was in [facility] and felt lightheaded,went to a tent [...] Needs: No Transportation Needs (07/07/2024) Received from [facility] IP Transportation In the past 12 [...] from [facility] [place] of Occupational Health - Occupational Stress Questionnaire Feeling of Stress : Rather much Social Connections: Socially Isolated (11/07/2023) Received from [facility] Social Connection and Isolation Panel [NHANES] Frequency of Communication with Friends and Family: Once a week Frequency of Social Gatherings with Friends and Family: Once a week Attends Faith Services: 1 to 4 times per year [...] 428 ms QTcF 417 ms QRS Horizontal [place] -19 deg QRS AXIS 16 deg I-40 Horizontal [place] 46 deg I-40 FRONT AXIS -17 deg T-40 Horizontal [place] -50 deg T-40 Front [place] 51 deg T Horizontal [place] 52 deg T WAVE AXIS 16 deg S-T Horizontal [place] 60 deg S-T Front [place] 24 deg ECG IMPRESSION - BORDERLINE ECG - ECG IMPRESSION SR-Sinus rhythm-normal P axis, V-rate 50-99 ECG IMPRESSION LVHVP-Probable left ventricular hypertrophy-multiple LVH criteria ECGGUID [id number] CBC w/ Diff Collection Time: 01/02/25 5:13 [...] an event outside, states she was in [facility] and felt lightheaded,went to a tent [...] out of the sun in the heat. [place] dizzy lightheaded. Does feel slightly better after [...] Chetna Cedeno MD Family Medicine As needed [facility] [place] [address] [place] [address] Please note that some or all of this record was generated using voice recognition software. If there are any questions about the content of this document, please contact the author as some errors in waste machine operator may have occurred. Dallin Espinoza MD 01/02/25 1837 Dallin Espinoza MD 01/02/25 1848 * Rylie Darby Registered Nurse - 01/02/2025 4:30 PM EDT Triage Note Meri Cole presents to [facility] with complaint(s) of Heat Exposure (Patient arrives via EMS froman event outside, states she was in [facility] and felt lightheaded, went to a [...] (ABNORMAL) BAMP (Na,K,Cl,CO2,Glu,BUN,Creat,Ca) (01/02/2025 5:13 PM EDT) [facility] BLD UREA NITROGEN 16 8 - 26 mg/dL CHEMISTRY [place] SODIUM 140 135 - 145 mmol/L CHEMISTRY SIX [place] POTASSIUM 3.2(L) 3.6 - 5.1 mmol/L CHEMISTRY SIX [place] CHLORIDE 107 98 - 111 mmol/L CHEMISTRY S[place] CO2 20(L) 21 - 31 mmol/L CHEMISTRY [place] GLUCOSE, RANDOM 89 70 - 99 mg/dL CHEMISTRY [place] CREATININE 1.06 0.60 - 1.20 mg/dL CHEMISTRY [place] ANION GAP 13 4 - 16 mmol/L CHEMISTRY [place] CALCIUM 9.0 8.5 - 10.4 mg/dL CHEMISTRY [place] ESTIMATED GFR 61 >59 mL/min/1.7 3 m2 CHEMISTRY [place]IX [place] Comment: Estimated GFR was calculated using the CKD-EPI cr (2020) equation refit without race. The equation is recommended by the National Kidney Foundation - [place] Society of Nephrology Task Force. Tested at [address] [address] Whole Blood 01/02/2025 5:13 PM EDT 01/02/2025 5:25 PM EDT Dallin Espinoza MD LAB BLOOD ORDERABLES Final Result [facility] [address] [place] [address] [address] * (ABNORMAL) CBC w/ Diff (01/02/2025 5:13 PM EDT) [facility] WBC 7.1 3.6 - 10.5 THOU/mcL CHEMISTRY [place] RBC 3.75(L) 3.80 - 5.20 MIL/mcL CHEMISTRY [place] HEMOGLOBIN 11.2(L) 12.0 - 15.2 g/dL CHEMISTRY [place] HEMATOCRIT 33.6(L) 36 - 46 % CHEMISTRY [place] MCV 89.6 82 - 97 fL CHEMISTRY SIX MI[place] MCH 30.0 27 - 33 pg CHEMISTRY [place] MCHC 33.5 32 - 36 g/dL CHEMISTRY [place] RDW 16.0 12.3 - 17.0 % CHEMISTRY SIX [place] PLATELET 206 140 - 375 THOU/mcL CHEMISTRY SIX [place] MPV 6.9(L) 7.0 - 11.5 fL CHEMISTRY [place] ABS. NEUTROPHIL 3.60 1.80 - 7.70 THOU/mcL CHEMISTRY [place] ABS LYMPHS 3.00 1.00 - 4.00 THOU/mcL CHEMISTRY SIX [place] ABS MONOS 0.30 0.20 - 0.90 THOU/mcL CHEMISTRY S[place] ABS EOS 0.10 0.03 - 0.45 THOU/mcL CHEMISTRY SIX [place] ABS BASOS 0.10 0.00 - 0.20 THOU/mcL CHEMISTRY S[place] SEGS 51 % CHEMISTRY S[place] LYMPHOCYTES 43 % CHEMISTR Y NORTH MONOCYTES 4 % CHEMISTRY SIX [place] EOSINOPHIL 1 % CHEMISTRY SIX [place] BASOPHILS 1 % CHEMISTRY SIX MILE Comment:Tested at [facility] [address] [place] [address] Whole Blood 01/02/2025 5:13 PM EDT 01/02/2025 5:25 PM EDT Dallin Espinoza MD LAB BLOOD ORDERABLES Final Result [facility] [address] [place] [address] [address] * ECG 12 lead (01/02/2025 4:37 PM [...] QTcF 417 ms TH TRACEMASTER QRS Horizontal [place] -19 deg TH TRACEMASTER QRS AXIS 16 deg TH TRACEMASTER I-40 Horizontal [place] 46 deg TH TRACEMASTER I-40 FRONT AXIS -17 deg TH TRACEMASTER T-40 Horizontal [place] -50 deg TH TRACEMASTER T-40 Front [place] 51 deg TH TRACEMASTER T Horizontal [place] 52 deg TH TRACEMASTER T WAVE AXIS 16 deg TH TRACEMASTER S-T Horizontal [place] 60 deg TH TRACEMASTER S-T Front [place] 24 deg TH TRACEMASTER ECG IMPRESSION - BORDERLINE ECG - TH TRACEMASTER ECG IMPRESSION SR-Sinus rhythm-normal P axis, V-rate 50-99 TH TRACEMASTER ECG IMPRESSION LVHVP-Probable left ventricular hypertrophy-mul tiple LVH criteria TH TRACEMASTER ECGGUID [id number] TH TRACEMASTER 01/02/2025 4:37 PM EDT Dallin [...] Raymundo) documented in this encounter Care Teams Behavioral Health Associate Relationship Specialty Start Date End Date Chetna Cedeno MD [facility] [address] [place] [address] PCP - General Family Medicine 01/02/25 documented as of this encounter
--- OUTSIDE RECORDS SUMMARY | 2025-01-06 12:56 | XMS_ITS | Encounter Summary ---
Author Organization [place] [address] Care Team Providers Care Floor Director Name Role Phone Chetna Cedeno MD Primary Care Provider [phone] Arlyn Schmidt MD Unavailable [phone] Tacho Echavarria MD Unavailable [phone] Matt Ulrich MD Unavailable [phone] Eze Brock Unavailable Annette Walker Unavailable [phone] Batool Celis MD Unavailable [phone] Encounter Details Date Type Department Care Team (Latest Contact Info) Description 01/06/2025 12:56 PM EDT - 01/06/2025 1:13 PM EDT Hospital Encounter [facility] [place], [place] [phone] Tacho Echavarria MD [address] [place] [address] [phone] Invasive ductal carcinoma of breast, female, right [...] Never 11/07/2023 [facility] Utilities Answer Date Recorded In the past [...] often do you attend chur ch or yazdanism services? 1 to 4 times per year 11/07/2023 Do you belong to any clubs o r organizations such as buddhism groups, unions, fraternal or athletic groups, or [...] Date Recorded PHQ-2 Total Score 5 07/07/2024 [facility] Occupat ional Health - Occupational [...] any time in the past 12 m [facility], were you homeless or living in a senior care (including now)? No 11/07/2023 [facility] IP Transportation Answer D ate Recorded [...] 4 fluticasone propionate (FLONASE) 50 mcg/actuation Nasl [place], Suspension 1 [place] by Nasal route daily. 1 Each 11 [...] 11:40 AM EDT Office Visit [facility] [address] [place] [address] [place] [address] [place] [address] 03/02/2025 12:45 PM EDT Procedure visit [facility] [address] [facility] [address] [place] [address] Samm Ledesma APRN [address] [facility] [address] [place] [address] 03/10/2025 12:30 PM EDT Appointment [place] [address] 03/10/2025 1:00 PM EDT Appointment [facility] Medical Oncology [place], [place] [phone] Tacho Echavarria MD [address] [place] [address] [id number] 04/29/2025 9:15 AM EDT Appointment [facility] RAD ONC [place], [place] [phone] Batool Celis MD [address] [place] [address] CANCER CARE [place], [place] [id number] 05/19/2025 2:15 PM EST Office Visit [address] [address] Sin Tran MD [address] [place] [address] 08/12/2025 10:40 AM EST Appointment [facility] [place] [address] Matt Ulrich MD [address] [place], [place] [address] documented as of this encounter Goals Goal [...] maintain an ideal body weight General Sanam hCampion MA documented as of this encounter Visit [...] documented as of this encounter Care Teams Floor Director Relationship Specialty [place] [address] [place] [address] PCP - General 06/21/10 Arlyn Schmidt MD [address] [place], [place] [phone] Consulting Physician Internal Medicine-Endocrinology, Diabetes & Metabolism 11/28/20 Tacho Echavarria MD [address] [place] [address] Internal Medicine-Medical Oncology 11/12/23 Matt Ulrich MD 1 [place] [address] Surgery-Surgical Oncology 12/04/23 Eze Brock Pastoral Care 12/13/23 Annette Walker, ARACELI Curriculum Coach 05/13/24 Batool Celis MD [address] [facility] [place] [address] Radiation Oncologist Radiology-Radiation Oncology 06/08/24 documented as of this encounter
--- OUTSIDE RECORDS SUMMARY | 2025-01-06 13:14 | XMS_ITS | Encounter Summary ---
Author Organization [place] [address] Care Team Providers Care Drying Equipment Operator Name Role Phone Chetna Cedeno MD Primary Care Provider [phone] Arlyn Schmidt MD Unavailable [phone] Tacho Echavarria MD Unavailable [phone] Matt Ulrich MD Unavailable [phone] Eze Brock Unavailable Annette Walker Unavailable [phone] Batool Celis MD Unavailable [phone] Reason for Visit * Reason Comments Follow-up Breast Cancer Encounter Details Date Type Department Care Team (Latest Contact Info) Description 01/06/2025 1:14 PM EDT - 01/06/2025 11:59 PM EDT Hospital Encounter [facility] [place] [address] Tacho Echavarria MD [address] [place] [address] [phone] Invasive ductal carcinoma of breast, female, right [...] from your doctor or pharmacy? Never 11/07/2023 [facility] Utilities Answer Date Recorded In the past [...] often do you attend chur ch or baptism services? 1 to 4 times per year 11/07/2023 Do you belong to any clubs o r organizations such as presybeterian groups, unions, fraternal or athletic groups, or [...] Recorded PHQ-2 Total Score 5 07/07/2024 [facility] of Occupat ional Health - Occupational Stress [...] any time in the past 12 m [facility], were you homeless or living in a skilled nursing (including now)? No 11/07/2023 [facility] IP Transportation Answer D ate Recorded [...] 4 fluticasone propionate (FLONASE) 50 mcg/actuation Nasl [place], Suspension 1 [place] by Nasal route daily. 1 Each 4 Inhalational Spacing Device (AEROCHAMBER MV) Misc Spacer 1 Each by [facility].(Non-Drug; Combo Route) route as needed. 1 Device [...] were not included. Patient: El Cole CSN: [id number] Date of : 1965 Age: 59 y.o. Date of Service: 01/06/2025 HEMATOLOGY/ONCOLOGY FOLLOW UP VISIT Primary Correctional Supervising Cook & Oncologist: Tacho Echavarria MD. Patient Care Team: Chetna Cedeno MD as PCP - General Arlyn Schmidt MD as Consulting Physician (Internal Medicine-Endocrinology, Diabetes & Metabolism) Tacho Echavarria MD (Internal Medicine-Medical Oncology) Matt Ulrich MD (Surgery-Surgical Oncology) Eze Brock as Pastoral Care Annette Walker MSW as Reading Coach Batool Celis MD as Radiation Oncologist (Radiology-Radiation Oncology) 2nd OPINION [facility] EVAL: [place], [place]: Dr Beata Kebede: [phone] Next of Kin: Daughter Ruthy Man ([phone]) Patient Contact info: [phone] DIAGNOSIS HISTORY DATE OF INITIAL CONSULTATION: 11/14/23; outside 2nd opinion at on 09/23/2024 CURRENT TREATMENT BREAST CA: adjuvant [place]-E regimen: Arimidex 1mg po daily + dose [...] Invasive ductal carcinoma grade 3 ER 92% DE 55% HER2 Negative HER-2 by FISH NEGATIVE [...] to GI tolerance for 2 yr planned ([place]-E regimen) Stage Clinical Stage IIIB (cT3, cN3a(f), cM0, G3, ER+, DE+, HER2-) Pathologic Stage ypT3, ypN3a, G3, ER+, DE+, HER2- Right breast cancer with T3 tumor, [...] CalcPt Dosage Given to Date in Gy 10.40999336 Session Dosage Given in Gy [id number] Reference Point ID LN Boost RP Dosage Given to Date in Gy 10 Session Dosage Given in Gy [id number] Reference Point ID [id number] ISO Dosage Given to Date in Gy [id number] Session Dosage Given in Gy [id number] Plan ID Nd Boost Plan Name Nd [...] GASTRECTOMY ; Surgeon: Marcus Perez MD; Location: [facility] MAIN OR; Service: General IR 2 [...] SACRAL SINGLE LVL 08/03/2022 Sin Tran MD [facility] SPINE CTR IMAGING IR PORT PLACEMENT EQUAL OR > 5 YEARS 11/29/2023 IR PORT PLACEMENT EQUAL OR > 5 YEARS 11/29/2023 Joselito Goodwin MD [facility] IR LUMBAR DISC SURGERY 09/11/2012 LUMBAR LAMINECTOMY & DISCECTOMY L4-5 LEFT ; Surgeon: Hetal Borden MD; MASTECTOMY Right 07/06/2024 Right modified radical mastectomy; Surgeon: Matt Ulrich MD; Location: [facility] MAIN OR; Service:General SPINE SURGERY N/A 01/04/2021 PAIN PUMP PERMANENT IMPLANT; Surgeon: Munir Hilton MD; Location: [facility] MAIN OR; Service: Pain Management THORACIC SPINE SURGERY N/A 02/24/2020 SPINAL CORD STIMULATOR IMPLANT; Surgeon: Munir Hilton MD; Location: [facility] MAIN OR; Service: Pain Management TONSILLECTOMY UPPER GASTROINTESTINAL ENDOSCOPY UPPER GASTROINTESTINAL ENDOSCOPY N/A 01/26/2015 ESOPHAGOGASTRODUODENOSCOPY with biopsy and davis dilation; Surgeon: Stone Cronin MD; Location: [facility]; Service: Endoscopy FAMILY HISTORY Family History [...] op ddAC/Taxane chemo for her high risk ER/DE positive large RIGHT BREAST Carcinoma. She has [...] having completed adjuvant Radiation, while on the FLINT- adjuvant therapy treatment approach. Update (01/06/2025): Ms [...] Device fluticasone propionate (FLONASE) 50 mcg/actuation Nasl [place], Suspension Inhalational Spacing Device (AEROCHAMBER MV) Misc [...] Gran% 0.2 % Lymph Percent 28.1 % Donley Percent 4.3 % Eos Percent 1.8 % Baso Percent 0.4 % Neut # 3.3 1.6 - 6.1 x10(3)/mcL IMMGRAN# 0.0 0.0 - 0.1 x10(3)/mcL Lymph # 1.4 1.2 - 3.9 x10(3)/mcL Donley # 0.2 (L) 0.3 - 0.9 x10(3)/mcL [...] G43.719-Chronic migraine without aura, intractable, without status [id number]. COMPARISON: Multiple priors with the latest MRI [...] Performing Provider Shaylee Roque???LOUIE Restrepo CRNA, RN Meter Tester Polyphase Madelyn Sidhu RN Endoscopy Nurse Aliya Friedman [...] outside facility Neurosurgeon (Dr Benoit Duke at [facility]) and no need for surgical resection now, [...] Tacho Echavarria MD Hematology and Medical Oncology [facility] [phone] *This note was dictated using voice recognition [...] also performed on this calendar day: d/w Consumer Lending Manager about her care and symptom burden/depression documented in this encounter Plan of Treatment Upcoming Encounters Date Type Department Care Team (Late st Contact Info) Description 03/02/2025 11:40 AM EDT Office Visit [facility] [place] [facility] [address] [place] [address] [place] [address] [place] [address] 03/02/2025 12:45 PM EDT Procedure visit [facility] [address] [place] [address] S[address] Ledesma, DELICATE FABRICS PRESSER [address] [place] [address] 03/10/2025 12:30 PM EDT Appointment [facility] [place], [place] [phone] 03/10/2025 1:00 PM EDT Appointment [facility] [place] [address] Tacho Echavarria MD [address] [place] [address] [id number] 04/29/2025 9:15 AM EDT Appointment [place] [address] Batool Celis MD [address] [place] [address] [place] [address] 05/19/2025 2:15 PM EST Office Visit [facility] [address] [facility] [address] [place] [address] Sin Tran MD [address] [place] [address] 08/12/2025 10:40 AM EST Appointment [facility] [place] [address] Matt Ulrich MD [address] [place] [address] [place] [address] documented as of this encounter Goals Goal Patient Goal Type Associated Problems Recent Progress Patient-Stated? Author Blood Pressure < 140/90 Blood Pressure 121/77(02/04 2:04 PM EDT) No Chetna Cedeno MD Breast [facility] Breast Health On track(2024 11:27 AM EDT) No Jasmin Porter, RAUL Note: Patient acknowledges understanding of new diagnosis, plan of care, available resources and how to contact Nurse Navigator with any future questions or concerns. Breast [facility] Breast Health Not on track(2024 11:27 [...] MISC COMMENT [place] 01/07/2025 7:35 AM EDT [facility] Blood VENOUS STRUCTURE / Unknown Port / Unknown 01/06/2025 1:13 PM EDT 01/07/2025 7:31 AM EDT us Tacho Echavarria MD HEMATOLOGY ORDERABLES Final Result Performing Organization Address [facility]/ZIP Co de Phone Number [facility] 1 [place] [address] * IRON+TIBC (01/06/2025 1:13 PM EDT) Pathologist [facility] Iron 78 30 - 160 mcg/dL 01/06/2025 [...] CHEMISTRY ORDERABLES Final Result Performing Organization Address City/[facility]/ZIP Co de Phone Number [facility] [address] [facility], [place] [address] * VITAMIN B12/ FOLIC ACID (01/06/2025 1:13 PM EDT) Vitamin B12 305 232 - 1,245 pg/mL 01/06/2025 2:55 PM EDT [facility] Folate 15.80 >=4.80 ng/mL 01/06/2025 2:55 PM EDT [facility] Blood VENOUS STRUCTURE / Unknown Port / Unknown 01/06/2025 1:13 PM EDT 01/06/2025 1:17 PM EDT Narrative [facility] [facility] - 01/06/2025 2:55 PM EDT Ingestion of haroon doses of biotin (>5 mg/day) taken within 8 hours of drawing blood sample can interfere with this immunoassay test. [facility] Radha Echavarria MD CHEMISTRY ORDERABLES Final Result [facility] [address] [facility] , [place] [address] * (ABNORMAL) COMPREHENSIVE METABOLIC PANEL (01/06/2025 1:13 PM EDT) Sodium 140 136 - 145 mmol/L 01/06/2025 1:37 PM EDT [facility] Potassium 3.8 3.5 - 5.0 mmol/L 01/06/2025 1:37 PM EDT [facility] Chloride 108(H) 98 - 107 mmol/L 01/06/2025 1:37 PM EDT [facility] Total CO2 22 22 - 29 mmol/L 01/06/2025 1:37 PM EDT [facility] Anion Gap 10 7 - 16 mmol/L 01/06/2025 1:37 PM EDT [facility] Calcium 9.2 8.6 - 10.4 mg/dL 01/06/2025 1:37 PM EDT [facility] Glucose Lvl 121(H) 70 - 99 mg/dL 01/06/2025 1:37 PM EDT [facility] BUN 16 6 - 20 mg/dL 01/06/2025 1:37 PM EDT [facility] Creatinine 0.83 0.51 - 1.30 mg/dL 01/06/2025 1:37 PM EDT [facility] Albumin 4.0 3.5 - 5.2 gm/dL 01/06/2025 1:37 PM EDT [facility] Total Protein 6.6 6.4 - 8.3 gm/dL 01/06/2025 1:37 PM EDT [facility] Bili Total 0.4 0.2 - 1.3 mg/dL 01/06/2025 1:37 PM EDT [facility] ALT 9 <=41 U/L 01/06/2025 1:37 PM EDT [facility] AST 14 <=40 U/L 01/06/2025 1:37 PM EDT [facility] Alk Phos 127(H) 36 - 123 U/L 01/06/2025 1:37 PM EDT [facility] eGFR (CKD-EPIcr 2020) 82 >=60 mL/min/1.7 3 m2 01/06/2025 1:37 PM EDT [facility] Comment:Estimated GFR was ca lculated using the CKD-EPIcr (2020) equation refit without race. The equation is recommended by the National Kidney Foundation - [place] [employer] of Nephrology Task Force. Blood VENOUS STRUCTURE / Unknown Port / Unknown 01/06/2025 1:13 PM EDT 01/06/2025 1:17 PM EDT Tacho Echavarria MD CHEMISTRY ORDERABLES Final Result [facility] 1 [place] [address] * (ABNORMAL) CBC WITH DIFF (01/06/2025 1:13 PM EDT) WBC 5.1 3.7 - 10.3 x10(3)/mc L 01/06/2025 1:22 PM EDT [facility] RBC 3.61(L) 3.90 - 5.20 x10(6)/mc L 01/06/2025 1:22 PM EDT [facility] Hgb 11.0(L) 11.2 - 15.7 g/dL 01/06/2025 1:22 PM EDT [facility] Hct 33.2(L) 34.0 - 45.0 % 01/06/2025 1:22 PM EDT [facility] MCV 92.0 80.0 - 100.0 fL 01/06/2025 1:22 PM EDT [facility] MCH 30.5 26.0 - 34.0 pg 01/06/2025 1:22 PM EDT [facility] MCHC 33.1 30.7 - 35.5 g/dL 01/06/2025 1:22 PM EDT [facility] RDW 14.5 <=14.9 % 01/06/2025 1:22 PM EDT [facility] Platelet 170 155 - 369 x10(3)/mc L 01/06/2025 1:22 PM EDT [facility] MPV 8.8 8.8 - 12.5 fL 01/06/2025 1:22 PM EDT [facility] Neut # Prelim 3.3 1.6 - 6.1 x10(3)/mc L 01/06/2025 1:22 PM EDT [facility] Comment:Preliminary automate d absolute neutrophil count. Value may change if manual differential is indicated. Neut Percent 65.2 % 01/06/2025 1:22 PM EDT [facility] Comment:Neutrophils equals s egs plus bands Imm Gran% 0.2 % 01/06/2025 1:22 PM EDT [facility] Comment:Automated count of m etamyelocytes, myelocytes and promyelocytes. Lymph Percent 28.1 % 01/06/2025 1:22 PM EDT [facility] Donley Percent 4.3 % 01/06/2025 1:22 PM EDT [facility] Eos Percent 1.8 % 01/06/2025 1:22 PM EDT [facility] Baso Percent 0.4 % 01/06/2025 1:22 PM EDT [facility] Neut # 3.3 1.6 - 6.1 x10(3)/mc L 01/06/2025 1:22 PM EDT [facility] Comment:Neutrophils equals s egs plus bands IMMGRAN# 0.0 0.0 - 0.1 x10(3)/mc L 01/06/2025 1:22 PM EDT [facility] Comment:Automated count of m etamyelocytes, myelocytes and promyelocytes. An absolute IG <0.1 is reported as 0.0. Lymph # 1.4 1.2 - 3.9 x10(3)/mc L 01/06/2025 1:22 PM EDT [facility] Donley # 0.2(L) 0.3 - 0.9 x10(3)/mc L 01/06/2025 1:22 PM EDT [facility] Eos# 0.1 0.0 - 0.5 x10(3)/mc L 01/06/2025 1:22 PM EDT [facility] Baso # 0.0 0.0 - 0.1 x10(3)/mc L 01/06/2025 1:22 PM EDT [facility] Blood VENOUS STRUCTURE / Unknown Port / Unknown 01/06/2025 1:13 PM EDT 01/06/2025 1:17 PM EDT us Tacho Echavarria MD HEMATOLOGY ORDERABLES Final Result [facility] 1 [place] [address] * MISCELLANEOUS LAB (01/06/2025 1:13 PM EDT) Pathologist [facility] COMMENT Tiago 01/07/2025 7:34 AM EDT [facility] Blood VENOUS STRUCTURE / Unknown Port / Unknown 01/06/2025 1:13 PM EDT 01/07/2025 7:31 AM EDT us Tacho Echavarria MD HEMATOLOGY ORDERABLES Final Result Performing Organization Address City/[facility]/ZIP Co de Phone Number [facility] 1 [place] [address] documented in this encounter Visit Diagnoses Diagnosis [...] documented as of this encounter Care Teams Drying Equipment Operator Relationship Specialty Start [place] [address] [place] [address] PCP - General 06/21/10 Arlyn Schmidt MD [facility] [place] [address] Consulting Physician Internal Medicine-Endocrinology, Diabetes & Metabolism 11/28/20 Tacho Echavarria MD [address] [place] [address] Internal Medicine-Medical Oncology 11/12/23 Matt Ulrich MD 1 [place] [address] Surgery-Surgical Oncology 12/04/23 Eze Brock Pastoral Care 12/13/23 Annette Walker MSW Reading Coach 05/13/24 Batool Celis MD [address] [place] [address] [place] [address] Radiation Oncologist Radiology-Radiation Oncology 06/08/24 documented as of this encounter
--- OUTSIDE RECORDS SUMMARY | 2025-01-13 14:56 | XMS_ITS | Encounter Summary ---
Author Organization [place] [address] Care Team Providers Care Nursing Program Coordinator Name Role Phone Chetna Cedeno MD Primary Care Provider [phone] Arlyn Schmidt MD Unavailable [phone] Tacho Echavarria MD Unavailable [phone] Matt Ulrich MD Unavailable [phone] Eze Brock Unavailable Annette Walker Unavailable [phone] Batool Celis MD Unavailable [phone] Reason for Visit * Physical Therapy (Emergency) - Closed Specialty Diagnoses / Procedures Referred By Contac t Referred To Contact Physical Therapy Diagnoses 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) Chemotherapy follow-up examination Malignant neoplasm of right female breast, unspecified estrogen receptor status, unspecified site of breast (HCC) Port-A-Cath in place Tacho Echavarria MD 1 [place] [address] Phone: tel: fax: Shaunna Workman PT Referral ID Status Reason Start Date Expiration Date V isits Requested Visits Authorized [id number] Closed Specialty Services Required 10/08/2024 01/28/202507 31 Encounter Details Date Type Department Care Team (Latest Contact Info) Description 01/13/2025 2:56 PM EDT - 01/13/2025 11:59 PM EDT Hospital Encounter [facility] Physical Therapy [address] [place] [address] Shaunna Workman PT Discharge Disposition: Home or [...] or pharmacy? Never 11/07/2023 [facility] Utilities Answer Date Recorded In the past [...] often do you attend chur ch or church services? 1 to 4 times per year 11/07/2023 Do you belong to any clubs o r organizations such as voodoo groups, unions, fraternal or athletic groups, or [...] Date Recorded PHQ-2 Total Score 5 07/07/2024 [facility] [place] of Occupat ional Health - Occupational Stress [...] any time in the past 12 m [facility], were you homeless or living in a skilled nursing (including now)? No 11/07/2023 [facility] IP Transportation Answer D ate Recorded In [...] 4 fluticasone propionate (FLONASE) 50 mcg/actuation Nasl [place], Suspension 1 [place] by Nasal route daily. 1 Each 11 [...] to walk with no AD by then, [place] MS (but pt states that she was told this may have been a misdiagnosis), currently taking chemo pill, R mastectomy Jun 2024, radiation ended 09/25/24, chronic back issues with sciatica Physician: Jericho ESCOBAR Follow Up: 11/11/24 Evaluation Date: 10/30/24 Reassessment Due: 12/26/24 Primary Insurance: [facility] [id number] [facility] Secondary Insurance: n/a Insurance Authorization: AMB REFERRAL TO PHYSICAL THERAPY Authorized (10/08/2024-01/28/2025) Visits Requested Visits Authorized Visits Completed Visits Scheduled -- Details Referral ID: [id number] Authorization Status Reason: Received Carrier Authorization Authorization Comments: -- Referred To: Shaunna Workman PT at [facility] PT Referred By: Tacho Echavarria MD at [facility] MED ONC, [facility] Creation Date: 10/08/2024 Referral Reasons: Specialty Services [...] other week Needs Assistance: No Understood: Yes 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 pt verbalized understanding of this again. 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 Access Code: [email or web address] URL: [email or web address][employer] [email or web address]./ Date: 11/11/2024 Prepared by: Romana Bowman Exercises [...] increase from 727 feet with RW to 2361-4943 feet with LRAD to improve gait elisha [...] away. Treatments to consist of Therapeutic exercise 60641, Neuromuscular re-education 25119, Manual soft tissue and/or joint mobilization 92863, Patient education, Therapeutic activity 67984, and Gait training 70539. Electronically signed by: Signed: Shaunna Workman PT Date: 01/13/2025 documented in this encounter Plan of Treatment Upcoming Encounters Date Type Department Care Team (Late st Contact Info) Description 03/02/2025 11:40 AM EDT Office Visit [facility] [address] [place] [address] [place] [address] [place] [address] 03/02/2025 12:45 PM EDT Procedure visit [facility] [address] [place] [address] Samm Ledesma APRN [address] [place] [address] 03/10/2025 12:30 PM EDT Appointment [place] [address] 03/10/2025 1:00 PM EDT Appointment [facility] [place] [address] Tacho Echavarria MD [address] [place] [id number] 04/29/2025 9:15 AM EDT Appointment [facility] RAD ONC [place], [place] [phone] Batool Celis MD [address] [place] [address] [place] [address] 05/19/2025 2:15 PM EST Office Visit [address] [address] Sin Tran MD [address] [place] [address] 08/12/2025 10:40 AM EST Appointment [facility] [place] [address] Matt Ulrich MD [address] [place], [place] [address] documented as of this encounter Goals Goal [...] documented as of this encounter Care Teams Nursing Program Coordinator Relationship Specialty [place] [address] [place] [address] PCP - General 06/21/10 Arlyn Schmidt MD [address] [place] [address] Consulting Physician Internal Medicine-Endocrinology, Diabetes & Metabolism 11/28/20 Tacho Echavarria MD 1 [place], [place] [phone] Internal Medicine-Medical Oncology 11/12/23 Matt Ulrich MD 1 [place], [place] [address] Surgery-Surgical Oncology 12/04/23 Eze Brock Pastoral Care 12/13/23 Annette Walker MSW Religious Studies Professor 05/13/24 Batool Celis MD 1 [facility] [place] [address] Radiation Oncologist Radiology-Radiation Oncology 06/08/24 documented as of this encounter
--- OUTSIDE RECORDS SUMMARY | 2025-01-15 11:55 | XMS_ITS | Encounter Summary ---
Author Organization [place] [address] Care Team Providers Care Central Supply Aide Name Role Phone Chetna Cedeno MD Primary Care Provider [phone] Arlyn Schmidt MD Unavailable [phone] Tacho Echavarria MD Unavailable [phone] Matt Ulrich MD Unavailable [phone] Eze Brock Unavailable Annette Walker Unavailable [phone] Batool Celis MD Unavailable [phone] Reason for Visit * Physical Therapy (Routine) - Closed Specialty Diagnoses / Procedures Referred By Contac t Referred To Contact Physical Therapy Diagnoses Invasive ductal carcinoma of breast, female, right (HCC) Acquired lymphedema Matt Ulrich MD [address] [facility] [address] [place] [address] Phone: tel: fax: Kylah Lawler PT Referral ID Status Reason Start Date Expiration Date V isits Requested Visits Authorized [id number] Closed Specialty Services Required 09/04/2024 01/18/2025 1 20 Encounter Details Date Type Department Care Team (Latest Contact Info) Description 01/15/2025 11:55 AM EDT - 01/15/2025 1:14 PM EDT Hospital Encounter [facility] Physical Therapy [address] [place] [address] Kylah Lawler, PT Discharge Disposition: Home or [...] any clubs o r organizations such as adventism groups, unions, fraternal or athletic groups, or [...] Date Recorded PHQ-2 Total Score 5 07/07/2024 [facility] [place] of Occupat ional Health - Occupational Stress [...] any time in the past 12 m [facility], were you homeless or living in a detention (including now)? No 11/07/2023 [facility] IP Transportation Answer D ate [...] 4 fluticasone propionate (FLONASE) 50 mcg/actuation Nasl [place], Suspension 1 [place] by Nasal route daily. 1 Each [...] Cole : 1965 Visit # / Insurance: ([employer] ELIG EV, 20 VISITS, , ANTHEM IS SHOWING NOT ELIGIBLE AND [employer] IS SHOWING ANTHEM PRIMARY. 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 [address] [place] [address] [place] [address] 03/02/2025 12:45 PM EDT Procedure visit [facility] [address] [place] [address] Samm Ledesma, BLIND SLAT STAPLING MACHINE OPERATOR [address] [facility] [address] [place] [address] 03/10/2025 12:30 PM EDT Appointment [facility] [place], [place] [phone] 03/10/2025 1:00 PM EDT Appointment [facility] On[facility] [place], [place] [phone] Tacho Echavarria MD [address] [place] [id number] 04/29/2025 9:15 AM EDT Appointment [place] [address] Batool Celis MD [address] [place] [address] CANCER CARE [place], [place] [id number] 05/19/2025 2:15 PM EST Office Visit [facility] [address] [facility] [address] [place] [address] Sin Tran MD [address] [place] [address] 08/12/2025 10:40 AM EST Appointment [facility] Women's Wellness [facility] [place] [address] Matt Ulrich MD [address] [place] [address] [address] [place] [address] documented as of this encounter Goals Goal [...] documented as of this encounter Care Teams Central Supply Aide Relationship Specialty Start [place] [address] [place] [address] PCP - General 06/21/10 Arlyn Schmidt MD [address] [place] [address] Consulting Physician Internal Medicine-Endocrinology, Diabetes & Metabolism 11/28/20 Tacho Echavarria MD 1 [place] [address] Internal Medicine-Medical Oncology 11/12/23 Matt Ulrich MD [address] [facility] [address] Surgery-Surgical Oncology 12/04/23 Eze Brock Pastoral Care 12/13/23 Annette Walker, [facility] Electronics Technician 05/13/24 Batool Celis MD 1 [facility] [place] [address] Radiation Oncologist Radiology-Radiation Oncology 06/08/24 documented as of this encounter
--- OUTSIDE RECORDS SUMMARY | 2025-01-15 13:15 | XMS_ITS | Encounter Summary ---
Author Organization [place] [address] Care Team Providers Care Pathology Lab Technician Name Role Phone Chetna Cedeno MD Primary Care Provider [phone] Arlyn Schmidt MD Unavailable [phone] Tacho Echavarria MD Unavailable [phone] Matt Ulrich MD Unavailable [phone] Eze Brock Unavailable Annette Walker Unavailable [phone] Batool Celis MD Unavailable [phone] Encounter Details Date Type Department Care Team (Latest Contact Info) Description 01/15/2025 1:15 PM EDT - 01/15/2025 1:29 PM EDT Hospital Encounter [facility] [place], [place] [id number] Tacho Echavarria MD [address] [place] [address] [id number] Invasive ductal carcinoma of breast, female, right [...] doctor or pharmacy? Never 11/07/2023 [facility] Utilities Answer Date Recorded In the [...] often do you attend chur ch or uatsdin services? 1 to 4 times per year [...] Recorded PHQ-2 Total Score 5 07/07/2024 [facility]at ional Health - Occupational [...] any time in the past 12 m [facility], were you homeless or living in a senior care (including now)? No 11/07/2023 [facility] IP Transportation Answer D ate Recorded [...] 4 fluticasone propionate (FLONASE) 50 mcg/actuation Nasl [place], Suspension 1 [place] by Nasal route daily. 1 Each 11 [...] 11:40 AM EDT Office Visit [facility] [address] [address] [place] [address] [place] [address] 03/02/2025 12:45 PM EDT Procedure visit [facility] [address] [facility] [address] [place] [address] Samm Ledesma APRN [address] [place] [address] 03/10/2025 12:30 PM EDT Appointment [facility] [place], [place] [phone] 03/10/2025 1:00 PM EDT Appointment [facility] Oncology [place], [place] [id number] Tacho Echavarria MD [address] [place] [address] [id number] 04/29/2025 9:15 AM EDT Appointment [place] [address] Batool Celis MD [address] [place] [address] [place] [address] 05/19/2025 2:15 PM EST Office Visit [facility] [address] [place] [address] [address] [place] [address] Sin Tran MD [address] [place] [address] 08/12/2025 10:40 AM EST Appointment [facility] Women's Wellness [facility] [place] [id number] Matt Ulrich MD [address] [place] [address] 254 [place] [address] documented as of this encounter [...] - 145 mmol/L 01/15/2025 2:05 PM EDT [facility] Potassium 4.0 3.5 - 5.0 mmol/L 01/15/2025 2:05 PM EDT [facility] Chloride 107 98 - 107 mmol/L 01/15/2025 2:05 PM EDT [facility] Total CO2 25 22 - 29 mmol/L 01/15/2025 2:05 PM EDT [facility] Anion Gap 8 7 - 16 mmol/L 01/15/2025 2:05 PM EDT [facility] Calcium 9.3 8.6 - 10.4 mg/dL 01/15/2025 2:05 PM EDT [facility] Glucose Lvl 88 70 - 99 mg/dL 01/15/2025 2:05 PM EDT [facility] BUN 13 6 - 20 mg/dL 01/15/2025 2:05 PM EDT [facility] Creatinine 0.85 0.51 - 1.30 mg/dL 01/15/2025 2:05 PM EDT [facility] Albumin 4.0 3.5 - 5.2 gm/dL 01/15/2025 2:05 PM EDT [facility] Total Protein 6.7 6.4 - 8.3 gm/dL 01/15/2025 2:05 PM EDT [facility] Bili Total 0.3 0.2 - 1.3 mg/dL 01/15/2025 2:05 PM EDT [facility] ALT 8 <=41 U/L 01/15/2025 2:05 PM EDT [facility] AST 14 <=40 U/L 01/15/2025 2:05 PM EDT [facility] Alk Phos 124(H) 36 - 123 U/L 01/15/2025 2:05 PM EDT [facility] eGFR (CKD-EPIcr 2020) 79 >=60 mL/min/1.7 3 m2 01/15/2025 2:05 PM EDT [facility] Comment:Estimated GFR was ca lculated using the CKD-EPIcr (2020) equation refit without race. The equation is recommended by the National Kidney Foundation - [place] Society of Nephrology Task Force. Blood VENOUS BLOOD / Unknown Venipuncture / Unknown 01/15/2025 1:41 PM EDT 01/15/2025 1:44 PM EDT us Heydi Sorensen APRN CHEMISTRY ORDERABLES Final Res ult [facility] 1 [place] [address] * (ABNORMAL) CBC WITH DIFF (01/15/2025 1:41 PM EDT) WBC 4.5 3.7 - 10.3 x10(3)/mc L 01/15/2025 1:49 PM EDT [facility] RBC 3.40(L) 3.90 - 5.20 x10(6)/mc L 01/15/2025 1:49 PM EDT [facility] Hgb 10.3(L) 11.2 - 15.7 g/dL 01/15/2025 1:49 PM EDT [facility] Hct 31.7(L) 34.0 - 45.0 % 01/15/2025 1:49 PM EDT [facility] MCV 93.2 80.0 - 100.0 fL 01/15/2025 1:49 PM EDT [facility] MCH 30.3 26.0 - 34.0 pg 01/15/2025 1:49 PM EDT [facility] MCHC 32.5 30.7 - 35.5 g/dL 01/15/2025 1:49 PM EDT [facility] RDW 14.7 <=14.9 % 01/15/2025 1:49 PM EDT [facility] Platelet 165 155 - 369 x10(3)/mc L 01/15/2025 1:49 PM EDT [facility] MPV 8.4(L) 8.8 - 12.5 fL 01/15/2025 1:49 PM EDT [facility] Neut # Prelim 2.9 1.6 - 6.1 x10(3)/mc L 01/15/2025 1:49 PM EDT [facility] Comment:Preliminary automate d absolute neutrophil count. Value may change if manual differential is indicated. Neut Percent 64.2 % 01/15/2025 1:49 PM EDT [facility] Comment:Neutrophils equals s egs plus bands Imm Gran% 0.2 % 01/15/2025 1:49 PM EDT [facility] Comment:Automated count of m etamyelocytes, myelocytes and promyelocytes. Lymph Percent 28.3 % 01/15/2025 1:49 PM EDT [facility] [place] Percent 5.3 % 01/15/2025 1:49 PM EDT [facility] Eos Percent 1.3 % 01/15/2025 1:49 PM EDT [facility] Baso Percent 0.7 % 01/15/2025 1:49 PM EDT [facility] Neut # 2.9 1.6 - 6.1 x10(3)/mc L 01/15/2025 1:49 PM EDT [facility] Comment:Neutrophils equals s egs plus bands IMMGRAN# 0.0 0.0 - 0.1 x10(3)/mc L 01/15/2025 1:49 PM EDT [facility] Comment:Automated count of m etamyelocytes, myelocytes and promyelocytes. An absolute IG <0.1 is reported as 0.0. Lymph # 1.3 1.2 - 3.9 x10(3)/ L 01/15/2025 1:49 PM EDT [facility] [place] # 0.2(L) 0.3 - 0.9 x10(3)/ L 01/15/2025 1:49 PM EDT [facility] Eos# 0.1 0.0 - 0.5 x10(3)/ L 01/15/2025 1:49 PM EDT [facility] Baso # 0.0 0.0 - 0.1 x10(3)/ L 01/15/2025 1:49 PM EDT [facility] Blood VENOUS BLOOD / Unknown Venipuncture / Unknown 01/15/2025 1:41 PM EDT 01/15/2025 1:44 PM EDT us Heydi Sorensen APRN HEMATOLOGY ORDERABLES Final Re sult [facility] 1 [place] [phone] documented in this encounter Visit Diagnoses Diagnosis [...] documented as of this encounter Care Teams Pathology Lab Technician Relationship Specialty [place] [address] [place] [address] PCP - General 06/21/10 Arlyn Schmidt MD [address] [place] [address] Consulting Physician Internal Medicine-Endocrinology, Diabetes & Metabolism 11/28/20 Tacho Echavarria MD 1 [place] [address] Internal Medicine-Medical Oncology 11/12/23 Matt Ulrich MD 1 [place], [place] [phone] Surgery-Surgical Oncology 12/04/23 Eze Brock Pastoral Care 12/13/23 Annette Walker, ARACELI Cotton Program Technician 05/13/24 Batool Celis MD 1 [facility] [place] [address] Radiation Oncologist Radiology-Radiation Oncology 06/08/24 documented as of this encounter
--- OUTSIDE RECORDS SUMMARY | 2025-01-15 13:30 | XMS_ITS | Encounter Summary ---
Author Organization 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 Never 11/07/2023 [facility] Utilities Answer Date Recorded In the past 12 months has e [employer], gas, oil, or water [employer] threatened to shut off services in your [...] any clubs o r organizations such as pentecostal groups, unions, fraternal or athletic groups, or [...] Date Recorded PHQ-2 Total Score 5 07/07/2024 [facility] [place] of Occupat ional Health - Occupational Stress [...] time in the past 12 m [facility], were you homeless or living in a care home (including now)? No 11/07/2023 [facility] IP [...] 4 fluticasone propionate (FLONASE) 50 mcg/actuation Nasl [place], Suspension 1 [place] by Nasal route daily. 1 Each 4 Inhalational Spacing Device (AEROCHAMBER MV) Misc Spacer 1 Each by [facility].(Non-Drug; Combo Route) route as needed. 1 Device [...] 11:40 AM EDT Office Visit [facility] [address] [place] [address] [place] [address] [place] [address] 03/02/2025 12:45 PM EDT Procedure visit [facility] [address] [place] [address] Samm Ledesma, REFERENCE AND INSTRUCTION LIBRARIAN [address] [facility] 100 [place] [address] 03/10/2025 12:30 PM EDT Appointment [facility] [place], [place] [id number] 03/10/2025 1:00 PM EDT Appointment [facility] [place] [address] Tacho Echavarria MD [address] [place] [address] [id number] 04/29/2025 9:15 AM EDT Appointment [facility] ONC [place], [place] [phone] Batool Celis MD [address] [place] [address] [place] [address] 05/19/2025 2:15 PM EST Office Visit [facility] [address] [place] [address] Sin Tran MD [address] [place] [address] 08/12/2025 10:40 AM EST Appointment [facility] Women's [facility] [place] [address] Matt Ulrich MD [address] [place] [address] 254 [place], [place] [id number] documented as of this encounter Goals Goal [...] documented as of this encounter Care Teams Nude Model Relationship Specialty [place] [address] [place] [address] PCP - General 06/21/10 Arlyn Schmidt MD [address] [place] [address] Consulting Physician Internal Medicine-Endocrinology, Diabetes & Metabolism 11/28/20 Tacho Echavarria MD 1 [place] [address] Internal Medicine-Medical Oncology 11/12/23 Matt Ulrich MD 1 [place] [address] Surgery-Surgical Oncology 12/04/23 Eze Brock Pastoral Care 12/13/23 Annette Walker, TAI CHI INSTRUCTOR Glove Cuffer 05/13/24 Batool Celis MD 1 [facility] [place] [address] Radiation Oncologist Radiology-Radiation Oncology 06/08/24 documented as of this encounter
--- OUTSIDE RECORDS SUMMARY | 2025-02-02 11:20 | XMS_ITS | Encounter Summary ---
Author Organization [place] [address] Care Team Providers Care Front Office Representative Name Role Phone Chetna Cedeno MD Primary Care Provider [phone] Arlyn Schmidt MD Unavailable [phone] Tacho Echavarria MD Unavailable [phone] Matt Ulrich MD Unavailable [phone] Eze Brock Unavailable Annette Walker Unavailable [phone] Batool Celis MD Unavailable [phone] Encounter Details Date Type Department Care Team (Late st Contact Info) Description 02/02/2025 11:20 AM EDT Telemedicine [facility] [address] [facility] [address] [place] [address] Samm Ledesma, DOLL WIG MAKER ROOTED HAIR [address] [address] [place] [address] Chronic migraine without aura, intractable, with status [...] your doctor or pharmacy? Never 11/07/2023 [facility] Utilities Answer Date Recorded In [...] a care home (including now)? No 11/07/2023 [facility] IP Transportation Answer D [...] follows with oncology and surgical oncology at [place]. She has had more numbness, tingling, pain [...] elevated potassium, diarrhea in the lungs at [facility]. Allergies: allergy list reviewed and accurate [...] by mouth 3 times daily. for abdominal [id number] Capsule 0 DULoxetine (CYMBALTA) 30 mg Oral [...] 6 fluticasone propionate (FLONASE) 50 mcg/actuation Nasl [place], Suspension 1 [place] by Nasal route daily. 1 Each 11 [...] level: High school graduate Occupational History Employer: [employer] Tobacco Use Smoking status: Never Passive exposure: [...] true Transportation Needs: No Transportation Needs (07/07/2024) [facility] H[facility] IP Transportation In the past 12 months, has lack of reliable transportation kept you from medical appointments, meetings, work or from getting things needed for daily living?: No Physical Activity: Insufficiently Active (07/07/2024) Exercise Vital Sign Days of Exercise per Week: 3 days Minutes of Exercise per Session: 40 min Stress: Stress Concern Present (07/07/2024) [place] [facility] of Occupational Health - Occupational Stress Questionnaire Feeling of Stress : Rather much Social Connections: Socially Isolated (11/07/2023) Social Connection and Isolation Panel [NHANES] Frequency of Communication with Friends and Family: Once a week Frequency of Social Gatherings with Friends and Family: Once a week Attends Advent Services: 1 to 4 times per year Active Member of Clubs or Organizations: No Attends Club or Organization Meetings: Never Marital Status: Never Intimate Partner Violence: Not At Risk (11/07/2023) Humiliation, Afraid, Rape, and Kick questionnaire Fear of Current or Ex-Partner: No Emotionally Abused: No Physically Abused: No Sexually Abused: No Housing Stability: No Transportation Needs (02/24/2024) Received from [facility] Yearly Questionnaire Do you need [...] a video visit does not replace a vgor-dd-syvy exam and further service may be necessary. I advised the patient that we are conducting his/her video visit through the office in a private space onour secure network and this video visit is being conducted in accordance with [facility] telehealth/video visit regulations. Patient had no [...] AM EDT [facility] [address] [place] [address] [place] [address] [place] [address] 03/02/2025 12:45 PM EDT Procedure visit [facility] [address] [facility] [address] [place], [place] [id number] Samm Ledesma APRN [address] [address] [place], [place] [id number] 03/10/2025 12:30 PM EDT Appointment [facility] [place], [place] [id number] 03/10/2025 1:00 PM EDT Appointment [facility] [place] [address] Tacho Echavarria MD [address] [place] [address] [id number] 04/29/2025 9:15 AM EDT Appointment [place] [address] Batool Celis MD [address] [place] [address] [place] [address] 05/19/2025 2:15 PM EST Office Visit [facility] [place] [address] [facility] [address] [place] [address] Sin Tran MD [facility] [place] [address] 08/12/2025 10:40 AM EST Appointment [facility] Women's Wellness [place] [facility] [place] [id number] Matt Ulrich MD [address] [place] [address] DR VIGIL Zari [place] [address] documented as of this encounter Goals Goal Patient Goal Type Associated Problems Recent Progress Patient-Stated? Author Blood Pressure < 140/90 Blood Pressure 121/77(02/04 2:04 PM EDT) No Chetna Cedeno MD Breast [facility] Breast Health On track(2024 11:27 AM EDT) No Jasmin Porter, RAUL Note: Patient acknowledges understanding of new diagnosis, plan of care, available resources and how to contact Nurse Navigator with any future questions or concerns. Breast [facility] Breast Health Not on track(2024 11:27 AM [...] documented as of this encounter Care Teams Front Office Representative Relationship Specialty Start [place] [address] [place] [address] PCP - General 06/21/10 Arlyn Schmidt MD [address] [place], [place] [id number] Consulting Physician Internal Medicine-Endocrinology, Diabetes & Metabolism 11/28/20 Tacho Echavarria MD 1 [place] [address] Internal Medicine-Medical Oncology 11/12/23 Matt Ulrich MD 1 [place], [place] [id number] Surgery-Surgical Oncology 12/04/23 Eze Brock Pastoral Care 12/13/23 Annette Walker MSW Corporate Auditor 05/13/24 Batool Celis MD 1 [facility] [address] Radiation Oncologist Radiology-Radiation Oncology 06/08/24 documented as of this encounter
--- OUTSIDE RECORDS SUMMARY | 2025-02-04 11:00 | XMS_ITS | Encounter Summary ---
Author Organization [facility] [place] [address] Care Team Providers Care Clinical Microbiologist Name Role Phone Chetna Cedeno MD Primary Care Provider [phone] Arlyn Schmidt MD Unavailable [phone] Tacho Echavarria MD Unavailable [phone] Matt Ulrich MD Unavailable [phone] Eze Brock Unavailable Annette Walker Unavailable [phone] Batool Celis MD Unavailable [phone] Reason for Referral * Consultation (Routine) - Pending Review Specialty Diagnoses / Procedures Referred By Contac t Referred To Contact Diagnoses Invasive ductal carcinoma of breast, female, right (HCC) Procedures OR OFFICE/OUTPATIENT NEW MODERATE MDM 45 MINUTES Naya García PA-C [address] [place] [address] Phone: tel: fax: Referral ID Status Reason Start Date Expiration Date V isits Requested Visits Authorized [id number] Pending Review 02/04/2025 02/04/2026 1 1 Question Answer Patient Status In Treatment - Survivorship visit today/not new diagnosis Reason for referral? Survivorship * Mammography (Routine) - Pending Review Specialty Diagnoses / Procedures Referred By Van butler Referred To Contact Radiology Diagnoses Encounter for screening mammogram for breast cancer Procedures MM MAMMO DIGITAL STEPHANE SCREEN LEFT Naya García PA-C [address] [place] [address] [address] [place] [address] Phone: tel: fax: Referral ID Status Reason Start Date Expiration Date V isits Requested Visits Authorized [id number] Pending Review 02/04/2025 02/04/2027 1 1 Reason for Visit * Reason Comments Follow-up Survivorship Encounter Details Date Type Department Care Team (Latest Contact Info) Description 02/04/2025 11:00 AM EDT - 02/04/2025 1:47 PM EDT Hospital Encounter [facility] Women's [facility] [place] [address] Tacho Echavarria MD [address] [place] [address] Naya García PA-C [address] [place] [address] [address] [place] [address] Invasive ductal carcinoma of breast, female, right [...] Date Recorded PHQ-2 Total Score 5 07/07/2024 [facility] - Occupational Stress Questionnaire Answer [...] in a fpc (including now)? No 11/07/2023 [facility] Transportation Answer [...] 4 fluticasone propionate (FLONASE) 50 mcg/actuation Nasl [place], Suspension 1 [place] by Nasal route daily. 1 Each 11 [...] back pain. Family Hx updated. Discharged from [facility] yesterday, states had a blood clot [...] Bra fits ok. She was recently in [facility] and diagnosed with PE. On [...] cancer support group GENETICS/FAMILY HISTORY: Genetics Negative ([employer] Hereditary Cancer 67-gene panel). No new family [...] Invasive ductal carcinoma, grade 3 ER 80%, OR 11%, Her2 negative B. Breast, right, 5:00 Invasive ductal carcinoma grade 3 ER 92%, OR 55%, Her2 negative 11/11/2023 - Consult Initial [...] to GI tolerance for 2 yr planned ([place]-E regimen) 10/2024 - changed to Aromasin d/t [...] Stage IIIB (cT3, cN3a(f), cM0, G3, ER+, OR+, HER2-) Pathologic Stage ypT3, ypN3a, G3, ER+, OR+, HER2- 02/04/2025 - Other Naya García PA-C [...] Stage IIIB (cT3, cN3a(f), cM0, G3, ER+, OR+, HER2-) - Unsigned - Pathologic stage from 07/06/2024: ypT3, ypN3a, G3, ER+, OR+, HER2- - Unsigned RECENT IMAGING: Right MTX [...] by mouth 3 times daily. for abdominal [id number] Capsule 0 DULoxetine (CYMBALTA) 30 mg Oral [...] 6 fluticasone propionate (FLONASE) 50 mcg/actuation Nasl [place], Suspension 1 [place] by Nasal route daily. 1 Each 11 [...] GASTRECTOMY ; Surgeon: Marcus Perez MD; Location: [facility] MAIN OR; Service: General IR [...] SACRAL SINGLE LVL 08/03/2022 Sin Tran MD [facility] SPINE CTR IMAGING IR PORT PLACEMENT EQUAL OR > 5 YEARS 11/29/2023 IR PORT PLACEMENT EQUAL OR > 5 YEARS 11/29/2023 Joselito Goodwin MD [facility] IR LUMBAR DISC SURGERY 09/11/2012 LUMBAR LAMINECTOMY & DISCECTOMY L4-5 LEFT ; Surgeon: Hetal Borden MD; MASTECTOMY Right 07/06/2024 Right modified radical mastectomy; Surgeon: Matt Ulrich MD; Location: [facility] MA[facility] OR; Service:General SPINE SURGERY N/A 01/04/2021 PAIN PUMP PERMANENT IMPLANT; Surgeon: Munir Hilton MD; Location: [facility] MAIN OR; Service: Pain Management THORACIC SPINE SURGERY N/A 02/24/2020 SPINAL CORD STIMULATOR IMPLANT; Surgeon: Munir Hilton MD; Location: [facility] MA[facility] OR; Service: Pain Management TONSILLECTOMY UPPER GASTROINTESTINAL ENDOSCOPY UPPER GASTROINTESTINAL ENDOSCOPY N/A 01/26/2015 ESOPHAGOGASTRODUODENOSCOPY with biopsy and davis dilation; Surgeon: Stone Cronin MD; Location: [facility] ENDOSCOPY; Service: Endoscopy Allergies Allergen Reactions [...] level: High school graduate Occupational History Employer: [employer] Tobacco Use Smoking status: Never Passive exposure: [...] true Transportation Needs: No Transportation Needs (07/07/2024) [facility] Transportation In the past 12 months, has lack of reliable transportation kept you from medical appointments, meetings, work or from getting things needed for daily living?: No Physical Activity: Insufficiently Active (07/07/2024) Exercise Vital Sign Days of Exercise per Week: 3 days Minutes of Exercise per Session: 40 min Stress: Stress Concern Present (07/07/2024) [place] of Occupational Health - Occupational Stress Questionnaire [...] Stability: No Transportation Needs (02/24/2024) Received from [facility] Yearly Questionnaire Do you need any [...] of this patient. Naya García PA-C Breast [facility] Total time approx. 50 minutes, including review of notes, rjkl-hq-svfb interaction, and documentation. Reviewed past pathology and [...] to access video: Lymphatic Massage YouTube Video [email or web address] Discuss DEXA scan with medical oncology, your last in our system was on 12/29/20. Breast Health Nurse Contact - Report new changes by calling the Breast Health Nurse Line at [phone]. Please remember the nurse checks voice mail [...] Desiree The number to our Boutique is [phone]. You may call to set up an [...] off all the clothes above your waist. decorating equipment setter front of a mirror in a room [...] circles with your fingers. For the first elem, press lightly. Forthe second elem, press harder. For the third elem, press even harder. Keep making circles with [...] breast in the same way. Sit or spring intern the shower or tub. With soapy water [...] 12/10/2008 Document Revised: 11/29/2016 Document Reviewed: 05/13/2016 [employer] Interactive Patient Education ?? 2018 [employer] It is best not to drink [...] almonds. Get enough vitamin D - recommend [id number] IU/day Vitamin D is the most essential [...] AM EDT Office Visit [facility] [address] [place] [address] [place] [address] [place] [address] 03/02/2025 12:45 PM EDT Procedure visit [facility] [address] [place] [address] Samm Ledesma APRN [address] [place] [address] 03/10/2025 12:30 PM EDT Appointment [facility] [address] [place], [place] [id number] 03/10/2025 1:00 PM EDT Appointment [facility] [place] [address] Tacho Echavarria MD [address] [place] [address] 04/29/2025 9:15 AM EDT Appointment [facility] [place] [address] Batool Celis MD [address] [place] [address] [place] [address] 05/19/2025 2:15 PM EST Office Visit [address] [address] Sin Tran MD [address] [place] [address] 08/12/2025 10:[address] [facility] [place] [address] Matt Ulrich MD [address] [place] [address] [address] [place] [id number] Scheduled Orders Name Type Priority Associated Diagnoses [...] with any future questions or concerns. Breast [facility] Breast Health Not on track(2024 [...] as of this encounter Care Teams Clinical Microbiologist Relationship Specialty Start [place] [address] [place] [address] PCP - General 06/21/10 Arlyn Schmidt MD [address] [place] [address] Consulting Physician Internal Medicine-Endocrinology, Diabetes & Metabolism 11/28/20 Tacho Echavarria MD [address] [place] [address] [id number] Internal Medicine-Medical Oncology 11/12/23 Matt Ulrich MD 1 [place] [address] Surgery-Surgical Oncology 12/04/23 Eze Brock Pastoral Care 12/13/23 Annette Walker MSW Cue Worker 05/13/24 Batool Celis MD [address] [facility] [address] Radiation Oncologist Radiology-Radiation Oncology 06/08/24 documented as of this encounter
--- OUTSIDE RECORDS SUMMARY | 2025-02-04 13:48 | XMS_ITS | Encounter Summary ---
Author Organization [place] [address] Care Team Providers Care Port Cdl A Driver Name Role Phone Chetna Cedeno MD Primary Care Provider [phone] Arlyn Schmidt MD Unavailable [phone] Tacho Echavarria MD Unavailable [phone] Matt Ulrich MD Unavailable [phone] Eze Brock Unavailable Annette Walker Unavailable [phone] Batool Celis MD Unavailable [phone] Encounter Details Date Type Department Care Team (Latest Contact Info) Description 02/04/2025 1:48 PM EDT - 02/04/2025 2:02 PM EDT Hospital Encounter [facility] [place], [place] [id number] Tacho Echavarria MD [address] [place] [id number] Invasive ductal carcinoma of breast, female, right [...] from your doctor or pharmacy? Never 11/07/2023 [facility] Utilities Answer Date Recorded In [...] time in the past 12 [address] [place], were you homeless or living in a halfway (including now)? No 11/07/2023 [facility] IP Transportation Answer D [...] 4 fluticasone propionate (FLONASE) 50 mcg/actuation Nasl [place], Suspension 1 [place] by Nasal route daily. 1 Each 11 [...] AM EDT Office Visit [facility] [address] [place] [address] [place] [address] [place] [address] 03/02/2025 12:45 PM EDT Procedure visit [facility] [address] [place] [id number] Samm Ledesma, SVP OF DIGITAL [address] [place], [place] [id number] 03/10/2025 12:30 PM EDT Appointment [facility] [place], [place] [phone] 03/10/2025 1:00 PM EDT Appointment [facility] [place] [address] Tacho Echavarria MD [address] [place] [address] 04/29/2025 9:15 AM EDT Appointment [place] [address] Batool Celis MD [address] [place] [address] [place] [address] 05/19/2025 2:15 PM EST Office Visit [facility] [address] [address] [address] [place] [address] Sin Tran MD [address] [place] [address] 08/12/2025 10:40 AM EST Appointment [facility] Women's Wellness [place] [facility] Emilee ZORAIDA [place] [address] Matt Ulrich MD [address] [place] [address] [place] [address] documented as of this encounter Goals Goal Patient Goal Type Associated Problems Recent Progress Patient-Stated? Author Blood Pressure < 140/90 Blood Pressure 121/77(02/04 2:04 PM EDT) No Chetna Cedeno MD Breast [facility] Breast Health On track(2024 11:27 AM EDT) No Jasmin Porter, RAUL Note: Patient acknowledges understanding of new diagnosis, plan of care, available resources and how to contact Nurse Navigator with any future questions or concerns. Breast [facility] Breast Health Not on track(2024 11:27 AM EDT) No Jasmin Porter, RAUL Note: Patient will be compliant with monthly SBE and is aware of who to contact for any unusual or concerning findings. Breast [facility] Breast Health On track(2024 11:27 AM EDT) No Demi Garibay, RN Note: Patient will be compliant with [...] B12/ FOLIC ACID (02/04/2025 2:03 PM EDT) [facility] Vitamin B12 271 232 - 1,245 pg/mL 02/04/2025 4:[address] [facility] Car reviews [facility] Folate 6.16 >=4.80 ng/mL 02/04/2025 4:[address] [facility] Car reviews [facility] Blood VENOUS BLOOD / Unknown Venipuncture / Unknown 02/04/2025 2:03 PM EDT 02/04/2025 2:03 PM EDT Narrative [facility] - 02/04/2025 4:31 PM EDT Ingestion of haroon doses of biotin (>5 mg/day) taken within 8 hours of drawing blood sample can interfere with this immunoassay test. [facility] Radha Echavarria MD CHEMISTRY ORDERABLES Final Result [facility] Car reviews [facility] 1 [facility] , [place] [address] * (ABNORMAL) CBC WITH DIFF (02/04/2025 2:03 PM EDT) [facility] WBC 8.1 3.7 - 10.3 x10(3)/mc L 02/04/2025 2:07 PM EDT [facility] RBC 2.95(L) 3.90 - 5.20 x10(6)/mc L 02/04/2025 2:07 PM EDT [facility] Hgb 9.4(L) 11.2 - 15.7 g/dL 02/04/2025 2:07 PM EDT [facility] Hct 28.1(L) 34.0 - 45.0 % 02/04/2025 2:07 PM EDT [facility] MCV 95.3 80.0 - 100.0 fL 02/04/2025 2:07 PM EDT [facility] MCH 31.9 26.0 - 34.0 pg 02/04/2025 2:07 PM EDT [facility] MCHC 33.5 30.7 - 35.5 g/dL 02/04/2025 2:07 PM EDT [facility] RDW 15.0(H) <=14.9 % 02/04/2025 2:07 PM EDT [facility] Platelet 163 155 - 369 x10(3)/mc L 02/04/2025 2:07 PM EDT [facility] MPV 8.8 8.8 - 12.5 fL 02/04/2025 2:07 PM EDT [facility] Neut # Prelim 5.6 1.6 - 6.1 x10(3)/mc L 02/04/2025 2:07 PM EDT [facility] Comment:Preliminary automate d absolute neutrophil count. Value may change if manual differential is indicated. Neut Percent 68.4 % 02/04/2025 2:07 PM EDT [facility] Comment:Neutrophils equals s egs plus bands Imm Gran% 0.2 % 02/04/2025 2:07 PM EDT [facility] Comment:Automated count of m etamyelocytes, myelocytes and promyelocytes. Lymph Percent 23.4 % 02/04/2025 2:07 PM EDT [facility] [place] Percent 5.7 % 02/04/2025 2:07 PM EDT [facility] Eos Percent 2.1 % 02/04/2025 2:07 PM EDT [facility] Baso Percent 0.2 % 02/04/2025 2:07 PM EDT [facility] Neut # 5.6 1.6 - 6.1 x10(3)/mc L 02/04/2025 2:07 PM EDT [facility] Comment:Neutrophils equals s egs plus bands IMMGRAN# 0.0 0.0 - 0.1 x10(3)/mc L 02/04/2025 2:07 PM EDT [facility] Comment:Automated count of m etamyelocytes, myelocytes and promyelocytes. An absolute IG <0.1 is reported as 0.0. Lymph # 1.9 1.2 - 3.9 x10(3)/mc L 02/04/2025 2:07 PM EDT [facility] [place] # 0.5 0.3 - 0.9 x10(3)/mc L 02/04/2025 2:07 PM EDT [facility] Eos# 0.2 0.0 - 0.5 x10(3)/mc L 02/04/2025 2:07 PM EDT [facility] Baso # 0.0 0.0 - 0.1 x10(3)/mc L 02/04/2025 2:07 PM EDT [facility] Blood VENOUS BLOOD / Unknown Venipuncture / Unknown 02/04/2025 2:03 PM EDT 02/04/2025 2:03 PM EDT us Tacho Echavarria MD HEMATOLOGY ORDERABLES Final Result Performing Organization Address City/[facility]/ZIP Co de Phone Number [facility] 1 [place] [address] * IRON+TIBC (02/04/2025 2:02 PM EDT) [facility] Iron 82 30 - 160 mcg/dL 02/04/2025 2:59 PM EDT [facility] Transferrin 279 200 - 360 mg/dL 02/04/2025 2:59 PM EDT [facility] Transferr[facility] Saturation 21 20 - 50 % 02/04/2025 2:59 PM EDT [facility] TIBC 391 250 - 400 mcg/dL 02/04/2025 2:59 PM EDT [facility] Blood VENOUS BLOOD / Unknown Venipuncture / Unknown 02/04/2025 2:02 PM EDT 02/04/2025 2:02 PM EDT us Tacho Echavarria MD CHEMISTRY ORDERABLES Final Result Performing Organization Address City/[facility]/ZIP Co de Phone Number [facility] [address] [place] [phone] [facility] 1 [facility] [place] [phone] * (ABNORMAL) COMPREHENSIVE METABOLIC PANEL (02/04/2025 2:02 PM EDT) [facility] Sodium 142 136 - 145 mmol/L 02/04/2025 2:28 PM EDT [facility] Potassium 3.3(L) 3.5 - 5.0 mmol/L 02/04/2025 2:28 PM EDT [facility] Chloride 108(H) 98 - 107 mmol/L 02/04/2025 2:28 PM EDT [facility] Total CO2 19(L) 22 - 29 mmol/L 02/04/2025 2:28 PM EDT [facility] Anion Gap 15 7 - 16 mmol/L 02/04/2025 2:28 PM EDT [facility] Calcium 8.6 8.6 - 10.4 mg/dL 02/04/2025 2:28 PM EDT [facility] Glucose Lvl 134(H) 70 - 99 mg/dL 02/04/2025 2:28 PM EDT [facility] BUN 12 6 - 20 mg/dL 02/04/2025 2:28 PM EDT [facility] Creatinine 0.78 0.51 - 1.30 mg/dL 02/04/2025 2:28 PM EDT [facility] Albumin 3.8 3.5 - 5.2 gm/dL 02/04/2025 2:28 PM EDT [facility] Total Protein 6.0(L) 6.4 - 8.3 gm/dL 02/04/2025 2:28 PM EDT [facility] Bili Total 0.3 0.2 - 1.3 mg/dL 02/04/2025 2:28 PM EDT [facility] ALT 8 <=41 U/L 02/04/2025 2:28 PM EDT [facility] AST 12 <=40 U/L 02/04/2025 2:28 PM EDT [facility] Alk Phos 95 36 - 123 U/L 02/04/2025 2:28 PM EDT [facility] eGFR (CKD-EPIcr 2020) 88 >=60 mL/min/1.7 3 m2 02/04/2025 2:28 PM EDT [facility] Comment:Estimated GFR was ca lculated using the CKD-EPIcr (2020) equation refit without race. The equation is recommended by the National Kidney Foundation - [place] [employer] of Nephrology Task Force. Blood VENOUS BLOOD / Unknown Venipuncture / Unknown 02/04/2025 2:02 PM EDT 02/04/2025 2:02 PM EDT Tacho Echavarria MD CHEMISTRY ORDERABLES Final Result [facility] 1 [place] [address] documented in this encounter Visit [...] documented as of this encounter Care Teams Port Cdl A Driver Relationship Specialty [place] [address] [place] [address] PCP - General 06/21/10 Arlyn Schmidt MD [address] [place] [address] Consulting Physician Internal Medicine-Endocrinology, Diabetes & Metabolism 11/28/20 Tacho Echavarria MD [address] [place] [address] Internal Medicine-Medical Oncology 11/12/23 Matt Ulrich MD [address] [place] [address] Surgery-Surgical Oncology 12/04/23 Eze Brock Pastoral Care 12/13/23 Annette Walker, [facility] [place] Forensic Engineer 05/13/24 Batool Celis MD [address] [facility] [address] Radiation Oncologist Radiology-Radiation Oncology 06/08/24 documented as of this encounter
--- OUTSIDE RECORDS SUMMARY | 2025-02-04 14:03 | XMS_ITS | Encounter Summary ---
Author Organization [place] [address] Care Team Providers Care Ceo And Founder Name Role Phone Chetna Cdeeno MD Primary Care Provider [phone] Arlyn Schmidt MD Unavailable [phone] Tacho Echavarria MD Unavailable [phone] Matt Ulrich MD Unavailable [phone] Eze Brock Unavailable Annette Walker Unavailable [phone] Batool Celis MD Unavailable [phone] Reason for Visit * Reason Comments Follow-up Breast Cancer Encounter Details Date Type Department Care Team (Latest Contact Info) Description 02/04/2025 2:03 PM EDT - 02/04/2025 11:59 PM EDT Hospital Encounter Cancer Care Medical Oncology [place], [place] [id number] Tacho Echavarria MD [address] [place] [address] [phone] Invasive ductal carcinoma of breast, female, right (HCC) (Primary Dx); Chemotherapy follow-up examination; Encounter for monitoring aromatase inhibitor therapy; Vitamin D deficiency; Port-A-Cath in place; Reactive depression Discharge Disposition: Home or Self Care Social [...] your doctor or pharmacy? Never 11/07/2023 [facility] Utilities Answer Date Recorded In the [...] any clubs o r organizations such as hindu groups, unions, fraternal or athletic groups, or [...] in the past 12 m [facility], were you homeless or living in a fci (including now)? No 11/07/2023 [facility] IP [...] Sign Reading Time Taken Comments Blood Pressure 121/77 02/04/2025 2:04 PM EDT Pulse 91 02/04/2025 2:04 PM EDT Temperature 36.9 C (98.4 F) 02/04/2025 2:04 PM EDT Respiratory Rate 16 02/04/2025 2:04 PM EDT Oxygen Saturation 98% 02/04/2025 2:04 PM EDT Inhaled Oxygen Concentration - - Weight 91.1 kg (200 lb 14.4 oz) 02/04/2025 2:04 PM EDT Height 160 cm (5' 3 ) 02/04/2025 2:04 PM EDT Body Mass Index 35.59 02/04/2025 2:04 PM EDT documented in this encounter Functional [...] Puff into the lungs daily. 1 Each 4 fluticasone propionate (FLONASE) 50 mcg/actuation Nasl Sallis, Suspension 1 Sallis by Nasal route daily. 1 Each 4 [...] Progress Notes * Tacho Echavarria MD - 02/04/2025 2:20 PM EDT Images from the original note were not included. Patient: El Cole CSN: [id number] Date of : 1965 Age: 59 y.o. Date of Service: 02/04/2025 HEMATOLOGY/ONCOLOGY FOLLOW UP VISIT Primary Supervisor Polishing & Oncologist: Tacho Echavarria MD. Patient Care Team: Chetna Cedeno MD as PCP - General Arlyn Schmidt MD as Consulting Physician (Internal Medicine-Endocrinology, Diabetes & Metabolism) Tacho Echavarria MD (Internal Medicine-Medical Oncology) Matt Ulrich MD (Surgery-Surgical Oncology) Eze Brock as Pastoral Care Annette Walker MSW as Towel Stretcher Batool Celis MD as Radiation Oncologist (Radiology-Radiation Oncology) 2nd OPINION [facility] EVAL: [place], [place]: Dr Cota Arnett: [phone] Next of Kin: Daughter Ruthy Man ([phone]) Patient Contact info: [phone] DIAGNOSIS HISTORY DATE OF INITIAL CONSULTATION: 11/14/23; outside 2nd opinion at on 09/23/2024 CURRENT TREATMENT BREAST CA: adjuvant Carman-E regimen: Aromasin 25mg po daily + dose titration up of Abemacyclib (Verzenio) 50mg po bid -> 100 mg po bid, per NCCN guidelines PE (02/02/25, at [facility]) and 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 Breast, right, 6:00, Invasive ductal carcinoma, grade 3 ER 80%, RI 11%, Her2 negative B. Breast, right, 5:00 Invasive ductal carcinoma grade 3 ER 92%, RI 55%, Her2 negative 11/11/2023 - Consult Initial [...] to GI tolerance for 2 yr planned (Carman-E regimen) 10/2024 - changed to Aromasin d/t SEs (severe leg arthralgias) -Medical Oncologist: Dr. Echavarria 08/12/2024 - 09/25/2024 Radiation Tx External beam radiotherapy to a total dose of 60 Gy; 50 Gy to right chest wall and regional lymph nodes including internal mammary + 10 Gy boost to the undissected nodes. Delivered in a total of 30 fractions. Primary Radiation Oncologist: Dr. Celis. Stage Clinical Stage IIIB (cT3, cN3a(f), cM0, G3, ER+, RI+, HER2-) Pathologic Stage ypT3, ypN3a, G3, ER+, RI+, HER2- 02/04/2025 - Other Naya García PA-C [...] CalcPt Dosage Given to Date in Gy [id number] Session Dosage Given in Gy [id number] Reference Point ID LN Boost RP Dosage Given to Date in Gy 10 Session Dosage Given in Gy [id number] Reference Point ID [id number] ISO Dosage Given to Date in Gy [id number] Session Dosage Given in Gy [id number] Plan ID BH Nd Boost Plan Name Nd Boost Fractions [...] (HCC) 10/14/2023 Migraines MS (multiple sclerosis) ([facility]) Pituitary cyst Prediabetes PTSD (post-traumatic stress disorder) Sleep apnea no cpap Uterine prolapse 06/06/2011 PAST SURGICAL HISTORY Past Surgical History: Procedure Laterality Date APPENDECTOMY BREAST BIOPSY Right 10/25/2023 5:00 and 6:00 CHOLECYSTECTOMY GASTRIC BYPASS SURGERY N/A 05/01/2017 LAPAROSCOPIC SLEEVE GASTRECTOMY ; Surgeon: Marcus Perez MD; Location: [facility] MAIN OR; Service: General IR 2 [...] SACRAL SINGLE LVL 08/03/2022 Sin Tran MD [facility] SPINE CTR IMAGING IR PORT PLACEMENT EQUAL OR > 5 YEARS 11/29/2023 IR PORT PLACEMENT EQUAL OR > 5 YEARS 11/29/2023 Joselito Goodwin MD [facility] IR LUMBAR DISC SURGERY 09/11/2012 LUMBAR LAMINECTOMY & DISCECTOMY L4-5 LEFT ; Surgeon: Hetal Borden MD; MASTECTOMY Right 07/06/2024 Right modified radical mastectomy; Surgeon: Matt Ulrich MD; Location: [facility] MA[facility] OR; Service:General SPINE SURGERY N/A 01/04/2021 PAIN PUMP PERMANENT IMPLANT; Surgeon: Munir Hilton MD; Location: [facility] OR; Service: Pain Management THORACIC SPINE SURGERY N/A 02/24/2020 SPINAL CORD STIMULATOR IMPLANT; Surgeon: Munir Hilton MD; Location: [facility]; Service: Pain Management TONSILLECTOMY UPPER GASTROINTESTINAL ENDOSCOPY UPPER GASTROINTESTINAL ENDOSCOPY N/A 01/26/2015 ESOPHAGOGASTRODUODENOSCOPY with biopsy and davis dilation; Surgeon: Stone Cronin MD; Location: [facility]; Service: Endoscopy FAMILY HISTORY Family History [...] Cancer Ms.Stefanie Devorah Cole comes in today (02/04/2025) for an follow up, s/p pre op ddAC/Taxane chemo for her high risk ER/RI positive large RIGHT BREAST Carcinoma. She has had significant barriers to self case and social support, here for assistance and updates on rest of her care plan. She has high riskresidual disesae with RBC-III response, ypT3 primary with ypN3a disease and [address] positivefor tumor. She is s/p adjuvant radiation therapy & on the MONARCH-E adjuvant therapy treatment approach. Was very resistant to this dual agent therapy, also reinforced [facility] [place]. Now being seen post hospital discharge for marked hypokalemia and PE dx and discharge on 02/03, started on JUSTYN Xarelto with cardiology referral. Update (02/04/2025): Ms Cole comes in today reporting 100% compliance to Verzenio 100mg po bid and aromasin 25 mg po daily and with various AEs such as hot flashes, joint aches, fatigue but due to he down trending SIGNATERA testing, motivated to continue this regimen. Denies any new pain, other symptoms and no diarrhea or any nausea. Reports about 3-4 days of mild soft stools on last escalation of Verzenio from 50 mg to 100mg, but now tolerating it well with no infections, abdominal cramps or any GI symptoms. Dueto get her cell free DNA testing and came to get educated about her drug metabolism testing, which has also revealed a pathogenic Factor II (prothrombin gene) mutation. Reports wt stable per home scale and very mild sensory neuropathy on both feet but no motor neuropathy, no foot drop. No progressive cancer associated symptoms reported. Particularly, denies any new neurologic symptoms, headaches or such. No cough, SOB, chest pain, focal bone or visceral pain, rash, itching, abdominal pain or diarrhea noted. No unexpected wt loss. No dizziness or any falls. Major issues is her chronic depression, now being seen by a therapist and also established in the Psychiatry clinic. No suicidal ideation and no self harm. Reports compliance nad help with use of Cymbalta. Was at [facility] and wanting to request transfer of [facility] records to oncology clinic there. ECOG PS: 1 MEDICATIONS Current Outpatient Medications [...] D) 1,250 mcg (50,000 unit) Oral Capsule exemestane (AROMASIN) 25 mg Oral Tablet fluticasone furoate-vilanteroL (BREO ELLIPTA) 200-25 mcg/dose Inhl Disk with Device fluticasone propionate (FLONASE) 50 mcg/actuation Nasl Sallis, Suspension Inhalational Spacing Device (AEROCHAMBER MV) Misc Spacer ketorolac (TORADOL) 10 mg Oral Tablet lidocaine-prilocaine (EMLA) Top Cream LORazepam (ATIVAN) 0.5 mg Oral Tablet losartan (COZAAR) 50 mg Oral Tablet MAGIC MOUTHWASH (LIDO/DIPHEN/NYSTAT) ORAL COMPOUND Meclizine (ANTIVERT) 50 mg Oral Tablet mometasone (ELOCON) 0.1 % Top Cream omeprazole (PRILOSEC) 40 mg Oral Capsule, Delayed Release(E.C.) ondansetron (ZOFRAN-ODT) 8 mg Oral Tablet, Rapid Dissolve oxybutynin (DITROPAN-XL) 5 mg Oral Tablet Extended Rel 24 hr promethazine-dextromethorphan (PROMETHAZINE-DM) 6.25-15 mg/5 mL Oral Syrup rimegepant (NURTEC ODT) 75 mg Oral Tablet, Rapid Dissolve rOPINIRole (REQUIP) 0.25 mg Oral Tablet tiZANidine (ZANAFLEX) 4 mg Oral Tablet UNABLE TO FIND No current facility-administered medications for this encounter. PHYSICAL EXAM Vitals: 02/04/25 1404 BP: 121/77 BP Location: Left arm Patient Position: Sitting Pulse: 91 Resp: 16 Temp: 98.4 ??F (36.9 ??C) TempSrc: Oral SpO2: 98% Weight: 200 lb 14.4 oz (91.1 kg) Height: 5' 3 (1.6 m) Wt Readings from Last 6 Encounters: 02/04/25 200 lb 14.4 oz (91.1 kg) 02/04/25 199 lb 4.8 oz (90.4 kg) 01/15/25 190 lb 4.8 oz (86.3 kg) 01/06/25 187 lb 1.6 oz (84.9 kg) 12/10/24 193 lb 3.2 oz (87.6 kg) 12/01/24 191 lb (86.6 kg) Physical Exam Vitals reviewed. Constitutional: Appearance: [...] DATA Results for orders placed or performed in visit on 01/21/25 PHARMACOGENOMIC PANEL Result Value Ref Range Pharmacogenomic Lab Comments See Comment Pharmacogenomic Lab Method See Comment *Note: Due to a large number of results and/or encounters for the requested time period, some results have not been displayed. A complete set of results can be found in Results Review. Results for orders placed or performed during the hospital encounter of 02/04/25 CBC WITH DIFF Result Value Ref Range WBC 8.1 3.7 - 10.3 x10(3)/mcL RBC 2.95 (L) 3.90 - 5.20 x10(6)/mcL Hgb 9.4 (L) 11.2 - 15.7 g/dL Hct 28.1 (L) 34.0 - 45.0 % MCV 95.3 80.0 - 100.0 fL MCH 31.9 26.0 - 34.0 pg MCHC 33.5 30.7 - 35.5 g/dL RDW 15.0 (H) <=14.9 % Platelet 163 155 - 369 x10(3)/mcL MPV 8.8 8.8 - 12.5 fL Neut # Prelim 5.6 1.6 - 6.1 x10(3)/mcL Neut Percent 68.4 % Imm Gran% 0.2 % Lymph Percent 23.4 % Henry Percent 5.7 % Eos Percent 2.1 % Baso Percent 0.2 % Neut # 5.6 1.6 - 6.1 x10(3)/mcL IMMGRAN# 0.0 0.0 - 0.1 x10(3)/mcL Lymph # 1.9 1.2 - 3.9 x10(3)/mcL Henry # 0.5 0.3 - 0.9 x10(3)/mcL Eos# 0.2 0.0 - 0.5 x10(3)/mcL Baso # 0.0 0.0 - 0.1 x10(3)/mcL COMPREHENSIVE METABOLIC PANEL Result Value Ref Range Sodium 142 136 - 145 mmol/L Potassium 3.3 (L) 3.5 - 5.0 mmol/L Chloride 108 (H) 98 - 107 mmol/L Total CO2 19 (L) 22 - 29 mmol/L Anion Gap 15 7 - 16 mmol/L Calcium 8.6 8.6 - 10.4 mg/dL Glucose Lvl 134 (H) 70 - 99 mg/dL BUN 12 6 - 20 mg/dL Creatinine 0.78 0.51 - 1.30 mg/dL Albumin 3.8 3.5 - 5.2 gm/dL Total Protein 6.0 (L) 6.4 - 8.3 gm/dL Bili Total 0.3 0.2 - 1.3 mg/dL ALT 8 <=41 U/L AST 12 <=40 U/L Alk Phos 95 36 - 123 U/L eGFR (CKD-EPIcr 2020) 88 >=60 mL/min/1.73 m2 IRON+TIBC Result Value Ref Range Iron 82 30 - 160 mcg/dL Transferrin 279 200 - 360 mg/dL Transferrin Saturation 21 20 - 50 % TIBC 391 250 - 400 mcg/dL VITAMIN B12/ FOLIC ACID Result Value Ref Range Vitamin B12 271 232 - 1,245 pg/mL Folate 6.16 >=4.80 ng/mL *Note: Due to a large number of results and/or encounters for the requested time period, some results have not been displayed. A complete set of results can be found in Results Review. Rest seen in EMR [facility] MRI BRAIN ATTN PITUITARY W WO CONTRAST 01/06/2024 CLINICAL HISTORY: G43.719-Chronic migraine without aura, intractable, without status [id number]. COMPARISON: Multiple priors with the latest MRI [...] Performing Provider Shaylee Roque???LOUIE Restrepo CRNA, RN Linter Saw Sharpener Madelyn Sidhu RN Endoscopy Nurse Aliya Friedman [...] underlying connective tissue disorder. Anti tumor tx: on adjuvant endocrine AI tx and CDK4/6 inhibitor; importance of exemestane 25 mg po dialy x 10 yrs and Verzenio cell cycle inhibitor Verzenio 100 mg po bid and titrate up to GI tolerance month by month for a total of 24 mo planned to CDK4/6 inhibitor concurrent with AI Hx pituitary tumor, migraines - seen by outside facility Neurosurgeon (Dr Benoit Duke at [facility]) and no need for surgical resection now, surveillance plan defined in his note of 02/24/24 noted Chemo induced anemia - as expected, stable cont 1 tab MVI po daily, asked for borderline VIT B12 tostart VIT B12 1000 mcg po daily otc PE/ Prothrombin gene carrier - obtaining records from [facility], meanwhile stay on FDAapproved dosing of JUSTYN Xarelto (rivaroxaban) and drug info, teaching on fall prevention and sx of bleeding to call our clinic d/w her Hypercoagulability - d.w her need to d/w offsprings and siblings, each with 50% odds of having acquired this factor II mutation Venous access: Port in place - continues to function today, PORT care d/w her Cancer susceptibility - seen by cancer genetics, negative results Major depression, chroic - met pastoral care, SW and confirm no self harm plans for now and is 100%complaint to anti breast ca tx, continue with Cymbalta 60mg po daily and follow up with Psych MD Infection Screen - Negative. High Complexity Visit - All questions were answered over 35 mins today Disposition - Return in about 4 weeks (around 03/03/2025) for NIVIA OV, LAB APPT, CALL FOR SYMPTOMS, (CBC, CMP). Please call if any questions about Mrs Cole's care. Tacho Echavarria MD Hematology and Medical Oncology [facility] [phone] *This note was dictated using voice recognition technology and may contain unintended typographicalerrors. Time-Based Billing Statement I spent 46 minutes in the care of this patient [...] also performed on this calendar day: d/w Wooling Machine Operator about her care and symptom burden/depression * Rosana Gupta RN - 02/04/2025 2:20 PM EDT Fax sent to Medical Records at [facility] Request for records from most recent hospitalization 01/30/25, including CT scan results and copy disk sent to radiology. documented in this encounter Miscellaneous Notes * Addendum Note - Tacho Echavarria MD - 02/04/2025 2:20 PM EDTEncounter addended by: Tacho Echavarria MD on: 02/04/2025 4:53 PM Actions taken: Clinical Note Signed documented in this encounter Plan of Treatment Upcoming Encounters Date Type Department Care Team (Late st Contact Info) Description 03/02/2025 11:40 AM EDT Office Visit [facility] [address] [place] [address] [place] [address] [place] [address] 03/02/2025 12:45 PM EDT Procedure visit [facility] [address] [place] [address] Samm Ledesma APRN [address] [place] [address] 03/10/2025 12:30 PM EDT Appointment [place] [address] 03/10/2025 1:00 PM EDT Appointment [place] [address] Tacho Echavarria MD [address] [place] [address] 04/29/2025 9:15 AM EDT Appointment [place] [address] Batool Celis MD [address] [place] [address] [facility] [place], [place] [id number] 05/19/2025 2:15 PM EST Office Visit [facility] [address] [facility] [address] [place] [address] Sin Tran MD [facility] [place] [address] 08/12/2025 10:[address] [facility] [address] [address] [facility] [place] [address] Matt Ulrich MD [address] [facility] [address] [place] [address] documented as of this encounter Goals Goal Patient Goal Type Associated Problems Recent Progress Patient-Stated? Author Blood Pressure < 140/90 Blood Pressure 121/77(02/04 2:04 PM EDT) No Chetna Cedeno MD Breast [facility] Breast Health On track(2024 11:27 AM EDT) No Jasmin Porter, RAUL Note: Patient acknowledges understanding of new diagnosis, plan of care, available resources and how to contact Nurse Navigator with any future questions or concerns. Breast [facility] Breast Health Not on track(2024 11:27 AM EDT) No Jasmin Porter, RAUL Note: Patient will be compliant with monthly SBE and is aware of who to contact for any unusual or concerning findings. Breast [facility] Breast Health On track(2024 11:27 AM [...] carcinoma of breast, female, right (HCC)- Primary Chemotherapy follow-up examination Encounter for monitoring aromatase inhibitor therapy Encounter for therapeutic drug monitoring Vitamin D deficiency Unspecified vitamin D deficiency Port-A-Cath in place Other postprocedural status Reactive depression Dysthymic disorder documented in this encounter Additional Health Concerns Assessment Noted Time PHQ-9 Depression Total Score: 17 024 8:39 AM EST PHQ-2 Depression Total Score: 5 07/07/20 24 8:39 AM EST documented as of this encounter Care Teams Ceo And Founder Relationship Specialty [place] [address] [place] [phone] PCP - General 06/21/10 Arlyn Schmidt MD [address] [place], [place] [id number] Consulting Physician Internal Medicine-Endocrinology, Diabetes & Metabolism 11/28/20 Tacho Echavarria MD 1 [place] [address] Internal Medicine-Medical Oncology 11/12/23 Matt Ulrich MD 1 [place] [address] Surgery-Surgical Oncology 12/04/23 Eze Brock Pastoral Care 12/13/23 Annette Walker MSW Towel Stretcher 05/13/24 Batool Celis MD 1 [facility] [place] [address] Radiation Oncologist Radiology-Radiation Oncology 06/08/24 documented as of this encounter
--- OUTSIDE RECORDS SUMMARY | 2025-02-10 10:30 | XMS_ITS | Encounter Summary ---
Author Organization [place] [address] Care Team Providers Care Internal Control Consultant Name Role Phone Chetna Cedeno MD Primary Care Provider [phone] Arlyn Schmidt MD Unavailable [phone] Tacho Echavarria MD Unavailable [phone] Matt Ulrich MD Unavailable [phone] Eze Brock Unavailable Annette Walker Unavailable [phone] Batool Celis MD Unavailable [phone] Reason for Visit * Reason Comments Follow-up Pump Refill Encounter Details Date Type Department Care Team (Late st Contact Info) Description 02/10/2025 10:30 AM EDT Office Visit [facility] Spine [address] [address] Sin Tran MD [address] [place] [address] Chronic pain syndrome (Primary Dx); Post [...] often do you attend chur ch or yarsanism services? 1 to 4 times per year [...] Recorded PHQ-2 Total Score 5 07/07/2024 [facility] - Occupational Stress Questionnaire Answer Date [...] in a half-way (including now)? No 11/07/2023 [facility] IP Transportation Answer D ate Recorded [...] No edema, warmth, erythema, or fluctuance. The Prismatic analyzer was used to interrogate the SynchroMed [...] well Sin Tran MD Interventional Pain Management [place] [facility] documented in this encounter Plan of Treatment Upcoming Encounters Date Type Department Care Team (Late st Contact Info) Description 03/02/2025 11:40 AM EDT Office Visit [facility] [address] [place] [address] [place] [address] [place] [id number] 03/02/2025 12:45 PM EDT Procedure visit [facility] [address] [facility] [address] [place] [address] Samm Ledesma APRN [address] [facility] [address] [place] [address] 03/10/2025 12:30 PM EDT Appointment [place] [address] 03/10/2025 1:00 PM EDT [facility]ointment [facility] [place] [address] Tacho Echavarria MD [address] [place] [address] 04/29/2025 9:15 AM EDT Appointment [facility] [place] [address] Batool Celis MD 1 [facility] [place] [address] 05/19/2025 2:15 PM EST Office Visit [facility] [address] [place] [address] Sin Tran MD [address] [place] [address] [place] [address] 08/12/2025 10:40 AM EST Appointment [facility] Women's Wellness [facility] [place] [id number] Matt Ulrich MD 20 [facility] 254 [place] [address] documented as of this encounter [...] documented as of this encounter Care Teams Internal Control Consultant Relationship Specialty [place] [address] [place] [address] PCP - General 06/21/10 Arlyn Schmidt MD [address] [place] [address] Consulting Physician Internal Medicine-Endocrinology, Diabetes & Metabolism 11/28/20 Tacho Echavarria MD 1 [place] [address] Internal Medicine-Medical Oncology 11/12/23 Matt Ulrich MD 1 [place], [place] [id number] Surgery-Surgical Oncology 12/04/23 Eze Brock Pastoral Care 12/13/23 Annette Walker MSW [employer] 05/13/24 Batool Celis MD 1 [facility] [place], [place] [id number] Radiation Oncologist Radiology-Radiation Oncology 06/08/24 documented as of this encounter
--- OUTSIDE RECORDS SUMMARY | 2025-02-19 14:00 | XMS_ITS | Encounter Summary ---
Author Organization [place] [address] Care Team Providers Care Silverware Buffer Name Role Phone Chetna Cedeno MD Primary Care Provider [phone] Arlyn Schmidt MD Unavailable [phone] Tacho Echavarria MD Unavailable [phone] Matt Ulrich MD Unavailable [phone] Eze Brock Unavailable Annette Walker Unavailable [phone] Batool Celis MD Unavailable [phone] Reason for Visit * Reason Comments Pharmacy Migraine Medication Management Ubrelvy Encounter Details Date Type Department Care Team (Latest Contact Info) Description 01/15/2025 Specialty Pharmacy [facility] [address] [place] [address] Annamarie Mark CPhT Pharmacy Migraine [...] th e electric, gas, oil, or water [employer] threatened to shut off services in your [...] PHQ-2 Total Score 5 07/07/2024 [facility] [place] of Occupat ional Health - Occupational Stress [...] in a custodial (including now)? No 11/07/2023 [facility] IP Transportation [...] Douglas requested a refill of Ubrelvy via [employer] message was sent in response with appropriate questionnaire. Will f/u in 2 business days. documented in this encounter Plan of Treatment Upcoming Encounters Date Type Department Care Team (Late st Contact Info) Description 03/02/2025 11:40 AM EDT Office Visit [facility]mood [address] [place] [address] [place] [address] [place] [address] 03/02/2025 12:45 PM EDT Procedure visit [facility] [address] [facility] [address] [place] [address] Samm Ledesma, AVIONICS SUPERVISOR [address] [facility] [address] [place] [address] 03/10/2025 12:30 PM EDT Appointment [facility] [place], [place] [phone] 03/10/2025 1:00 PM EDT Appointment [facility] [place] [address] Tacho Echavarria MD [address] [place] [address] 04/29/2025 9:15 AM EDT Appointment [place] [address] Batool Celis MD [address] [facility] [address] [facility]CER [facility] [place] [place], [place] [address] 05/19/2025 2:15 PM EST Office Visit [facility] [address] [place] [address] 401 [facility] 1D [place] [address] Sin Tran MD [address] [place] [address] [place] [address] 08/12/2025 10:40 AM EST Appointment [facility] Women's Wellness [place] [facility] Emilee [place] [facility] Matt Ulrich MD 20 [facility] 254 [place] [address] documented as of this encounter Goals Goal Patient Goal Type Associated Problems Recent Progress Patient-Stated? Author Blood Pressure < 140/90 Blood Pressure 121/77(02/04 2:04 PM EDT) No Chetna Cedeno MD Breast Health Breast Health On track(2024 11:27 AM EDT) No Jasmin Porter, ARUL Note: Patient acknowledges understanding of new diagnosis, [...] documented as of this encounter Care Teams Silverware Buffer Relationship Specialty [place] [address] [place] [phone] PCP - General 06/21/10 Arlyn Schmidt MD [address] [place], [place] [address] Consulting Physician Internal Medicine-Endocrinology, Diabetes & Metabolism 11/28/20 Tacho Echavarria MD 1 [place] [address] Internal Medicine-Medical Oncology 11/12/23 Matt Ulrich MD 1 [place], [place] [id number] Surgery-Surgical Oncology 12/04/23 Eze Brock Pastoral Care 12/13/23 Annette Walker, BAGGAGE SCREENER Piece Dyer 05/13/24 Batool Celis MD 1 [facility] [place] [address] Radiation Oncologist Radiology-Radiation Oncology 06/08/24 documented as of this encounter
--- OUTSIDE RECORDS SUMMARY | 2025-02-19 14:00 | XMS_ITS ---
Author Organization Emilee VELIZJude OD Address One [facility] [place] [address] Phone Care Team Providers Care Filter Changing Technician Name Role Phone Chetna Cedeno MD Primary Care Provider [phone] Arlyn Schmidt MD Unavailable [phone] Tacho Echavarria MD Unavailable [phone] Matt Ulrich MD Unavailable [phone] Eze Brock Unavailable Annette Walker Unavailable [phone] Batool Celis MD Unavailable [phone] Problems * This document contains information received from the source organization and may not represent a complete record from that organization. Patient Care Coordination No te Formatting of this note migh t be different from the original. [facility] - Sin Tran MD Controlled [...] Functional capacity documented (EVERY VISIT)01/03/2022 Pharmacy: [facility] [address] [address] [facility] [phone] AIS POA: 02/10/2025 josh as expected #[id number] Josh 08-05-2018 adm Josh 08-14-18 adm UDS 08-08-18 adm Care gap audit completed by Medina White RN on 01/01/2022. 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 Care Team Medical Oncologist Dr. Tacho Echavarria Surgeon Dr. Matt Ulrich Radiation Oncologist Dr. Batool Celis Primary Care Physician Chetna Cedeno MD Cancer Diagnosis Information Diagnosis date 10/29/23 Diagnosis and Staging information Invasive Ductal Carcinoma, right breast Clinical Stage IIIB (cT3, cN3a(f), M0, G3, ER+, IA+, Her2-) Pathologic Stage y(pT3, pN3a, G3 ER+, IA+, Her2-) Tumor markers Breast: Estrogen Receptor positive (92%) Progesterone Receptor positive (55%) Her-2 negative Background Information/Additional Screening Recommendations Genetics testing Negative ([facility] Hereditary Cancer 67-gene panel) Tobacco use Nonsmoker. [...] up to GI tolerance for2 yr planned ([place]-E regimen) Radiation therapy External beam radiotherapy to a total dose of 60 Gy; 50 Gy to right chest wall and regional lymph nodes including internal mammary + 10 Gy boost to the undissected nodes. Delivered in a total of 30 fractions Endocrine Therapy Arimidex started 10/08/24 + Verzenio. Changed to Aromasin give [facility] Oncology Timeline Oncology History Invasive ductal carcinoma of breast, female, right (HCC) 10/29/2023 Initial Diagnosis Invasive ductal carcinoma of right breast, grade 3 A. Breast, right, 6:00, Invasive ductal carcinoma, grade 3 ER 80%, IA 11%, Her2 negative B. Breast, right, 5:00 Invasive ductal carcinoma grade 3 ER 92%, IA 55%, Her2 negative 11/11/2023 - Consult Initial [...] to GI tolerance for 2 yr planned ([place]-E regimen) 10/2024 - changed to Aromasin d/t [...] Stage IIIB (cT3, cN3a(f), cM0, G3, ER+, IA+, HER2-) Pathologic Stage ypT3, ypN3a, G3, ER+, IA+, HER2- Right breast cancer with T3 tumor, [...] General Health Continue follow-up with PCP and PROCESS EXPERT as directed Recommendations Self-care plan: What you [...] with your body,see your regular doctor, physician registered dental assistant rda, or nurse practitioner. If what you are [...] Problem Noted Date Diagnosed Date Resolved Date [place] syndrome 12/30/2020 10/16/2021 Assessment & Plan (12/30/2020 [...]
--- OUTSIDE RECORDS SUMMARY | 2025-02-19 14:00 | XMS_ITS | Encounter Summary ---
Author Organization [place] [address] Care Team Providers Care Instructor Physical Education Name Role Phone Chetna Cedeno MD Primary Care Provider [phone] Arlyn Schmidt MD Unavailable [phone] Tacho Echavarria MD Unavailable [phone] Matt Ulrich MD Unavailable [phone] Eze Brock Unavailable Cheryl Nair RN Unavailable [phone] Annette Walker BEVEL FACE STONER AND POLISHER Unavailable [phone] Batool Celis MD Unavailable [phone] Encounter Details Date Type Department Care Team (Late st Contact Info) Description 09/11/2024 Lab Requisition [facility] [place] [address] Beata Kebede MD [address] [place] [address] Social History Tobacco Use Types Packs/Day Years [...] Date Recorded PHQ-2 Total Score 5 07/07/2024 [facility] of Occupat ional Health - Occupational [...] any time in the past 12 m [facility], were you homeless or living in a fpc (including now)? No 11/07/2023 [facility] IP Transportation Answer [...] AM EDT Office Visit [facility] [address] [place] [address] [place] [address] [place] [address] 03/02/2025 12:45 PM EDT Procedure visit [facility] [address] [facility] [address] [place] [address] Samm Ledesma, MANAGER MERCHANDISE [address] [place] [address] 03/10/2025 12:30 PM EDT Appointment [facility] [place], [place] [phone] 03/10/2025 1:00 PM EDT Appointment [facility] Medical Oncology [place], [place] [phone] Tacho Echavarria MD [address] [place] [id number] 04/29/2025 9:15 AM EDT Appointment [place] [address] Batool Celis MD [address] [place] [address] [place] [address] 05/19/2025 2:15 PM EST Office Visit [address] [place] [address] Sin Tran MD [facility] [place] [address] 08/12/2025 10:40 AM EST Appointment [facility] Women's Wellness [place] One [facility] [place] [address] Matt Ulrich MD [address] [place] [address] [address] [place] [address] documented as of this encounter Goals Goal Patient Goal Type Associated Problems Recent Progress Patient-Stated? Author Blood Pressure < 140/90 Blood Pressure 121/77(02/04 2:04 PM EDT) No Chetna Cedeno MD Breast [facility] Breast Health On track(2024 11:27 AM EDT) No Jasmin Porter RN Note: Patient acknowledges understanding of new diagnosis, plan of care, available resources and how to contact Nurse Navigator with any future questions or concerns. Breast [facility] Breast Health Not on track(2024 11:27 [...] EST) CASE REPORT Surgical Pathology Report Case: [id number] Authorizing Provider: Beata Kebede MD Collected: 09/11/20243 Ordering Location: [facility] Received: 09/11/20241312 Pathologist: Diane Ellis MD Specimen: Breast, Request for cases [id number], [id number] slides to [facility]. 09/15/2024 12:14 PM EDT [facility] FINAL DIAGNOSIS Results will be scanned in this case as an addendum. 09/15/2024 12:14 PM EDT [facility] at 1338 EST E[facility] IMAGES 09/15/2024 12:14 PM EDT [facility] ADDENDUM Refer to Scanned Surgical Pathology Report for [id number] & [id number]. 09/15/2024 12:14 PM EDT [facility] Addendum electronically signed by Diane Ellis MD on 09/15/2024 at 1214 EDT Tissue BREAST STRUCTURE / Unknown 09/11/2024 1:13 PM EST 09/11/2024 1:13 PM EST us Beata Kebede MD PATHOLOGY ORDERABLES Edited R esult - Final [facility] 1 [place] [id number] documented in this encounter Visit Diagnoses Not on filedocumented in this encounter Additional Health Concerns Infection Onset Date Last Indicated Resolved Time COVID-19 09/04/2024 09/04/2024 09/24/2024 10:1 2 PM EDT Assessment Noted Time PHQ-9 Depression Total Score: 17 024 8:39 AM EST PHQ-2 Depression Total Score: 5 07/07/20 24 8:39 AM EST documented as of this encounter Care Teams Instructor Physical Education Relationship Specialty [place] [address] [place] [address] PCP - General 06/21/10 Arlyn Schmidt MD [address] [place], [place] [address] Consulting Physician Internal Medicine-Endocrinology , Diabetes & Metabolism 11/28/20 Tacho Echavarria MD 1 [place], [place] [address] Internal Medicine-Medical Oncology 11/12/23 Matt Ulrich MD 1 [place] [address]8917 Surgery-Surgical Oncology 12/04/23 Eze Brock Pastoral Care 12/13/23 Cheryl Nair, RN Oncology Nurse Navigator 03/25/2412/13 Annette Walker, BEVEL FACE STONER AND POLISHER Frame Straightener 05/13/24 Batool Celis MD 1 [facility] CANCER CARE [place], [place] [address] Radiation Oncologist Radiology-Radiation Oncology 06/08/24 documented as of this encounter
--- OUTSIDE RECORDS SUMMARY | 2025-02-19 14:00 | XMS_ITS | Encounter Summary ---
Author Organization [place] [address] Care Team Providers Care Money Manager Name Role Phone Chetna Cedeno MD Primary Care Provider [phone] Arlyn Schmidt MD Unavailable [phone] Tacho Echavarria MD Unavailable [phone] Matt Ulrich MD Unavailable [phone] Eze Brock Unavailable Annette Walker Unavailable [phone] Batool Celis MD Unavailable [phone] Encounter Details Date Type Department Care Team (Late st Contact Info) Description 01/15/2025 Plan of Care Documentation [facility] Physical Therapy [address] [place] [address] Social History Tobacco Use Types [...] doctor or pharmacy? Never 11/07/2023 [facility] Utilities Answer Date Recorded In [...] a senior care (including now)? No 11/07/2023 [facility] IP Transportation Answer [...] AM EDT Office Visit [facility] [address] [place] [address] [place] [address] [place] [address] 03/02/2025 12:45 PM EDT Procedure visit [facility] [address] [facility] [address] [place] [address] Samm Ledesma, ARMED GUARD [address] [facility] [address] [place] [address] 03/10/2025 12:30 PM EDT Appointment [facility] [place], [place] [phone] 03/10/2025 1:00 PM EDT Appointment [facility] Medical Oncology [place], [place] 33[address] Tacho Echavarria MD [address] [place] [id number] 04/29/2025 9:15 AM EDT Appointment [facility] RAD ONC [place], [place] 684[address]17 Batool Celis MD [address] [place] [address] CANCER CARE [place], [place] [address] 05/19/2025 2:15 PM EST Office Visit [place] [address] [address] [place] [address] Sin Tran MD [address] [place] [id number] 08/12/2025 10:40 AM EST Appointment [facility] Women's Wellness [place] One [facility] [place] [phone] Matt Ulrich MD [address] [place] [address] [place] [address] documented as of this encounter [...] documented as of this encounter Care Teams Money Manager Relationship Specialty [place] [address] [facility] [place] [address] PCP - General 06/21/10 Arlyn Schmidt MD [address] [place] [address] Consulting Physician Internal Medicine-Endocrinology, Diabetes & Metabolism 11/28/20 Tacho Echavarria MD 1 [place] [id number] Internal Medicine-Medical Oncology 11/12/23 Matt Ulrich MD 1 [place] [phone] Surgery-Surgical Oncology 12/04/23 Eze Brock Pastoral Care 12/13/23 Annette Walker, ARACELI Integration Assistant 05/13/24 Batool Celis MD 1 [facility] [place] [address] Radiation Oncologist Radiology-Radiation Oncology 06/08/24 documented as of this encounter
--- OUTSIDE RECORDS SUMMARY | 2025-02-19 14:00 | XMS_ITS | Encounter Summary ---
Author Organization [place] [address] Care Team Providers Care Data Entry Associate Name Role Phone Chetna Cedeno MD Primary Care Provider [phone] Arlyn Schmidt MD Unavailable [phone] Tacho Echavarria MD Unavailable [phone] Matt Ulrich MD Unavailable [phone] Eze Brock Unavailable Annette Walker Unavailable [phone] Batool Celis MD Unavailable [phone] Reason for Visit * Reason Onset Date Comments Symptom Call 01/15/2025 shakiness, light headed, cold chills, and breaking out in sweats Encounter Details Date Type Department Care Team (Late st Contact Info) Description 01/15/2025 Telephone [facility] Medical Oncology [place], [place] [phone] Tacho Echavarria MD [address] [place] [address] Symptom Call (shakiness, light headed, cold [...] your doctor or pharmacy? Never 11/07/2023 [facility] Utilities Answer Date Recorded In [...] Total Score 5 07/07/2024 [facility] [place] of Occupat ional Health - Occupational Stress [...] in a retirement (including now)? No 11/07/2023 [facility] IP Transportation Answer D ate [...] be seen. Patient scheduled for 1:30 with TEST DECK SUPERVISOR and 1:15 for labs. * Telephone [...] Patient seen at:[facility] Preferred call back number:[phone] Explained to the caller, if this is a medical emergency please call 911 or go to the nearest emergency room. documented in this encounter Plan of Treatment Upcoming Encounters Date Type Department Care Team (Late st Contact Info) Description 03/02/2025 11:40 AM EDT Office Visit [facility] [address] [place] [address] [place] [address] [place] [address] 03/02/2025 12:45 PM EDT Procedure visit [facility] [address] [place], [place] [id number] Samm Ledesma, TEST DECK SUPERVISOR [address] [place], [place] [id number] 03/10/2025 12:30 PM EDT Appointment [facility] [place], [place] [id number] 03/10/2025 1:00 PM EDT Appointment [facility] [place], [place] [phone] Tacho Echavarria MD [address] [place] [id number] 04/29/2025 9:15 AM EDT Appointment [facility] RAD ONC [place], [place] [phone] Batool Celis MD [address] [place] [address] CANCER CARE [place], [place] [phone] 05/19/2025 2:15 PM EST Office Visit [facility] [address] [place] [address] [address] [place] [address] Sin Tran MD [facility] [place] [address] 08/12/2025 10:40 AM EST Appointment [facility] Women's Wellness [place] [facility] [place] [address] Matt Ulrich MD [address] [place] [address] [place] [address] documented as of this encounter Goals Goal [...] - 145 mmol/L 01/15/2025 2:05 PM EDT [facility] Potassium 4.0 3.5 - 5.0 mmol/L 01/15/2025 2:05 PM EDT [facility] Chloride 107 98 - 107 mmol/L 01/15/2025 2:05 PM EDT [facility] Total CO2 25 22 - 29 mmol/L 01/15/2025 2:05 PM EDT [facility] Anion Gap 8 7 - 16 mmol/L 01/15/2025 2:05 PM EDT [facility] Calcium 9.3 8.6 - 10.4 mg/dL 01/15/2025 2:05 PM EDT [facility] Glucose Lvl 88 70 - 99 mg/dL 01/15/2025 2:05 PM EDT [facility] BUN 13 6 - 20 mg/dL 01/15/2025 2:05 PM EDT [facility] Creatinine 0.85 0.51 - 1.30 mg/dL 01/15/2025 2:05 PM EDT [facility] Albumin 4.0 3.5 - 5.2 gm/dL 01/15/2025 2:05 PM EDT [facility] Total Protein 6.7 6.4 - 8.3 gm/dL 01/15/2025 2:05 PM EDT [facility] Bili Total 0.3 0.2 - 1.3 mg/dL 01/15/2025 2:05 PM EDT [facility] ALT 8 <=41 U/L 01/15/2025 2:05 PM EDT [facility] AST 14 <=40 U/L 01/15/2025 2:05 PM EDT [facility] Alk Phos 124(H) 36 - 123 U/L 01/15/2025 2:05 PM EDT [facility] eGFR (CKD-EPIcr 2020) 79 >=60 mL/min/1.7 3 m2 01/15/2025 2:05 PM EDT [facility] Comment:Estimated GFR was ca lculated using the CKD-EPIcr (2020) equation refit without race. The equation is recommended by the National Kidney Foundation - [place] Society of Nephrology Task Force. Blood VENOUS BLOOD / Unknown Venipuncture / Unknown 01/15/2025 1:41 PM EDT 01/15/2025 1:44 PM EDT us Heydi Sorensen APRN CHEMISTRY ORDERABLES Final Res ult [facility] 1 [place] [address] * (ABNORMAL) CBC WITH DIFF (01/15/2025 1:41 PM EDT) WBC 4.5 3.7 - 10.3 x10(3)/mc L 01/15/2025 1:49 PM EDT [facility] RBC 3.40(L) 3.90 - 5.20 x10(6)/mc L 01/15/2025 1:49 PM EDT [facility] Hgb 10.3(L) 11.2 - 15.7 g/dL 01/15/2025 1:49 PM EDT [facility] Hct 31.7(L) 34.0 - 45.0 % 01/15/2025 1:49 PM EDT [facility] MCV 93.2 80.0 - 100.0 fL 01/15/2025 1:49 PM EDT [facility] MCH 30.3 26.0 - 34.0 pg 01/15/2025 1:49 PM EDT [facility] MCHC 32.5 30.7 - 35.5 g/dL 01/15/2025 1:49 PM EDT [facility] RDW 14.7 <=14.9 % 01/15/2025 1:49 PM EDT [facility] Platelet 165 155 - 369 x10(3)/mc L 01/15/2025 1:49 PM EDT [facility] MPV 8.4(L) 8.8 - 12.5 fL 01/15/2025 1:49 PM EDT [facility] Neut # Prelim 2.9 1.6 - 6.1 x10(3)/mc L 01/15/2025 1:49 PM EDT [facility] Comment:Preliminary automate d absolute neutrophil count. Value may change if manual differential is indicated. Neut Percent 64.2 % 01/15/2025 1:49 PM EDT [facility] Comment:Neutrophils equals s egs plus bands Imm Gran% 0.2 % 01/15/2025 1:49 PM EDT [facility] Comment:Automated count of m etamyelocytes, myelocytes and promyelocytes. Lymph Percent 28.3 % 01/15/2025 1:49 PM EDT [facility] Gove Percent 5.3 % 01/15/2025 1:49 PM EDT [facility] Eos Percent 1.3 % 01/15/2025 1:49 PM EDT [facility] Baso Percent 0.7 % 01/15/2025 1:49 PM EDT [facility] Neut # 2.9 1.6 - 6.1 x10(3)/ L 01/15/2025 1:49 PM EDT [facility] Comment:Neutrophils equals s egs plus bands IMMGRAN# 0.0 0.0 - 0.1 x10(3)/mc L 01/15/2025 1:49 PM EDT [facility] Comment:Automated count of m etamyelocytes, myelocytes and promyelocytes. An absolute IG <0.1 is reported as 0.0. Lymph # 1.3 1.2 - 3.9 x10(3)/ L 01/15/2025 1:49 PM EDT [facility] Gove # 0.2(L) 0.3 - 0.9 x10(3)/ L 01/15/2025 1:49 PM EDT [facility] Eos# 0.1 0.0 - 0.5 x10(3)/ L 01/15/2025 1:49 PM EDT [facility] Baso # 0.0 0.0 - 0.1 x10(3)/ L 01/15/2025 1:49 PM EDT [facility] Blood VENOUS BLOOD / Unknown Venipuncture / Unknown 01/15/2025 1:41 PM EDT 01/15/2025 1:44 PM EDT us Heydi Sorensen TEST DECK SUPERVISOR HEMATOLOGY ORDERABLES Final Re sult [facility] [address] [place] [phone] documented in this encounter Visit Diagnoses Diagnosis Invasive ductal carcinoma of breast, female, right (HCC)- Primary Cold sweat Lightheaded Dizziness and giddiness Shakiness Abnormal involuntary movements documented in this encounter Additional Health Concerns Assessment Noted Time PHQ-9 Depression Total Score: 17 024 8:39 AM EST PHQ-2 Depression Total Score: 5 07/07/20 24 8:39 AM EST documented as of this encounter Care Teams Data Entry Associate Relationship Specialty [place] [address] [place] [address] PCP - General 06/21/10 Arlyn Schmidt MD [address] [place] [address] Consulting Physician Internal Medicine-Endocrinology, Diabetes & Metabolism 11/28/20 Tacho Echavarria MD 1 [place] [address] Internal Medicine-Medical Oncology 11/12/23 Matt Ulrich MD 1 [place] [address] Surgery-Surgical Oncology 12/04/23 Eze Brock Pastoral Care 12/13/23 Annette Walker, R&D ENGINEER Ingredient Scaler Helper 05/13/24 Batool Celis MD 1 [facility] [place] [address] Radiation Oncologist Radiology-Radiation Oncology 06/08/24 documented as of this encounter
--- OUTSIDE RECORDS SUMMARY | 2025-02-19 14:01 | XMS_ITS | Encounter Summary ---
Author [place] [address] Care Team Providers Care Coat Maker Name Role Phone Chetna Cedeno MD Primary Care Provider [phone] Arlyn Schmidt MD Unavailable [phone] Tacho Echavarria MD Unavailable [phone] Matt Ulrich MD Unavailable [phone] Eze Brock Unavailable Annette Walker Unavailable [phone] Batool Celis MD Unavailable [phone] Encounter Details Date Type Department Care Team (Late st Contact Info) Description 12/23/2024 Telephone [facility] Medical Oncology [place], [place] [phone] Tacho Echavarria MD [address] [place] [address] [phone] Social History Tobacco Use Types Packs/Day Years [...] from your doctor or pharmacy? Never 11/07/2023 [facility] Utilities Answer Date Recorded In [...] Date Recorded PHQ-2 Total Score 5 07/07/2024 [facility] of Occupat ional Health - Occupational Stress [...] a group home (including now)? No 11/07/2023 [facility] IP Transportation Answer D ate Recorded In [...] 11:40 AM EDT Office Visit [facility] [place] [address] [place] [address] [place] [address] [place] [address] 03/02/2025 12:45 PM EDT Procedure visit [facility] [address] [place], [place] [phone] Samm Ledesma, DEVELOPMENT LEAD [address] [place], [place] [phone] 03/10/2025 12:30 PM EDT Appointment [facility] [place], [place] [phone] 03/10/2025 1:00 PM EDT [facility]ointment [facility] [place] [address] Tacho Echavarria MD [address] [place], [place] [id number] 04/29/2025 9:15 AM EDT Appointment [place] [address] Batool Celis MD [address] [place] [address] [place] [address] 05/19/2025 2:15 PM EST Office Visit [address] [place] [address] Sin Tran MD [address] [place] [address] 08/12/2025 10:40 AM EST Appointment [facility] Women's [facility] [place] [address] Matt Ulrich MD [address] [place] [address] [address] [place] [address] documented as of this encounter Goals Goal Patient Goal Type Associated Problems Recent Progress Patient-Stated? Author Blood Pressure < 140/90 Blood Pressure 121/77(02/04 2:04 PM EDT) No Chetna Cedeno MD Breast [facility] Breast [facility] On track(2024 11:27 AM EDT) No Jasmin Porter, RN Note: Patient acknowledges understanding of new diagnosis, plan of care, available resources and how to contact Nurse Navigator with any future questions or concerns. Breast [facility] Breast [facility] Not on track(2024 11:27 AM EDT) [...] MISC COMMENT Tiago 01/07/2025 7:34 AM EDT [facility] Blood VENOUS STRUCTURE / Unknown Port / Unknown 01/06/2025 1:13 PM EDT 01/07/2025 7:31 AM EDT Tacho Echavarria MD HEMATOLOGY ORDERABLES Final Result [facility] [address] [place] [address] [phone] documented in this encounter Visit Diagnoses Diagnosis [...] documented as of this encounter Care Teams Coat Maker Relationship Specialty [place] [address] [place] [address] PCP - General 06/21/10 Arlyn Schmidt MD [address] [place] [address] Consulting Physician Internal Medicine-Endocrinology, Diabetes & Metabolism 11/28/20 Tacho Echavarria MD 1 [place] [address] Internal Medicine-Medical Oncology 11/12/23 Matt Ulrich MD 1 [place], [place] [phone] Surgery-Surgical Oncology 12/04/23 Eze Brock Pastoral Care 12/13/23 Annette Walker, CHROME PLATER HELPER Director Graphics 05/13/24 Batool Celis MD 1 [facility] [place] [address] Radiation Oncologist Radiology-Radiation Oncology 06/08/24 documented as of this encounter
--- OUTSIDE RECORDS SUMMARY | 2025-02-19 14:01 | XMS_ITS | Encounter Summary ---
Author Organization [place] [address] Care Team Providers Care [place] Mill Supervisor Name Role Phone Chetna Cedeno MD Primary Care Provider [phone] Arlyn Schmidt MD Unavailable [phone] Tacho Echavarria MD Unavailable [phone] Matt Ulrich MD Unavailable [phone] Eze Brock Unavailable Annette Walker Unavailable [phone] Batool Celis MD Unavailable [phone] Encounter Details Date Type Department Care Team (Late st Contact Info) Description 12/28/2024 Orders Only [facility] Medical Oncology [place], [place] [phone] Tacho Echavarria MD [address] [place] [address] [phone] 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) [...] or pharmacy? Never 11/07/2023 [facility] Utilities Answer Date Recorded In [...] Date Recorded PHQ-2 Total Score 5 07/07/2024 [facility] of Occupat ional Health - Occupational Stress [...] in a halfway (including now)? No 11/07/2023 [facility] IP Transportation Answer [...] AM EDT Office Visit [facility] [address] [place] [address] [place] [address] [place] [address] 03/02/2025 12:45 PM EDT Procedure visit [facility] [address] [place] [phone] Samm Ledesma, SPECIAL EVENTS ASSISTANT [address] [place] [address] 03/10/2025 12:30 PM EDT Appointment [facility] [place], [place] [phone] 03/10/2025 1:00 PM EDT Appointment [facility] [place] [address] Tacho Echavarria MD [address] [place] [address] [phone] 04/29/2025 9:15 AM EDT Appointment [facility] [place] [address] Batool Celis MD [address] [place] [address] [place] [address] 05/19/2025 2:15 PM EST Office Visit [address] [place] [address] Sin Tran MD [facility] [place] [address] 08/12/2025 10:40 AM EST Appointment [facility] Women's Wellness [place] [address] [facility] [place] [address] Matt Ulrich MD [address] [place] [address] [address] [place] [address] documented as of this encounter Goals Goal Patient Goal Type Associated Problems Recent Progress Patient-Stated? Author Blood Pressure < 140/90 Blood Pressure 121/77(02/04 2:04 PM EDT) No Chetna Cedeno MD Breast [facility] Breast Health On track(2024 11:27 AM EDT) No Jasmin Porter, RAUL Note: Patient acknowledges understanding of new diagnosis, plan of care, available resources and how to contact Nurse Navigator with any future questions or concerns. Breast [facility] Breast Health Not on track(2024 11:27 AM [...] CHEMISTRY ORDERABLES Final Result Performing Organization Address City/[facility]/ZIP Co de Phone Number PREFERRED LAB [employer] [facility] 1 [facility] , [place] [address] * VITAMIN B12/ FOLIC ACID (01/06/2025 1:13 PM EDT) Vitamin B12 305 232 - 1,245 pg/mL 01/06/2025 2:55 PM EDT PREFERRED [employer] [facility] Folate 15.80 >=4.80 ng/mL 01/06/2025 2:55 PM EDT [facility] [employer] Blood VENOUS STRUCTURE / Unknown Port / Unknown 01/06/2025 1:13 PM EDT 01/06/2025 1:17 PM EDT Narrative PREFERRED [employer] - 01/06/2025 2:55 PM EDT Ingestion of haroon doses of biotin (>5 mg/day) taken within 8 hours of drawing blood sample can interfere with this immunoassay test. Tacho Echavarria MD CHEMISTRY ORDERABLES Final Result Performing Organization Address City/[facility] Co de Phone Number [facility] [employer] [facility] 1 [facility] [place] [address] [place] [address] * (ABNORMAL) COMPREHENSIVE METABOLIC PANEL (01/06/2025 1:13 PM EDT) Sodium 140 136 - 145 mmol/L 01/06/2025 1:37 PM EDT [facility] Potassium 3.8 3.5 - 5.0 mmol/L 01/06/2025 1:37 PM EDT [facility] Chloride 108(H) 98 - 107 mmol/L 01/06/2025 1:37 PM EDT [facility] Total CO2 22 22 - 29 mmol/L 01/06/2025 1:37 PM EDT [facility] Anion Gap 10 7 - 16 mmol/L 01/06/2025 1:37 PM EDT [facility] Calcium 9.2 8.6 - 10.4 mg/dL 01/06/2025 1:37 PM EDT [facility] Glucose Lvl 121(H) 70 - 99 mg/dL 01/06/2025 1:37 PM EDT [facility] BUN 16 6 - 20 mg/dL 01/06/2025 1:37 PM EDT [facility] Creatinine 0.83 0.51 - 1.30 mg/dL 01/06/2025 1:37 PM EDT [facility] Albumin 4.0 3.5 - 5.2 gm/dL 01/06/2025 1:37 PM EDT [facility] Total Protein 6.6 6.4 - 8.3 gm/dL 01/06/2025 1:37 PM EDT [facility] Bili Total 0.4 0.2 - 1.3 mg/dL 01/06/2025 1:37 PM EDT [facility] ALT 9 <=41 U/L 01/06/2025 1:37 PM EDT [facility] AST 14 <=40 U/L 01/06/2025 1:37 PM EDT [facility] Alk Phos 127(H) 36 - 123 U/L 01/06/2025 1:37 PM EDT [facility] eGFR (CKD-EPIcr 2020) 82 >=60 mL/min/1.7 3 m2 01/06/2025 1:37 PM EDT [facility] Comment:Estimated GFR was ca lculated using the CKD-EPIcr (2020) equation refit without race. The equation is recommended by the National Kidney Foundation - [place] Society of Nephrology Task Force. Blood VENOUS STRUCTURE / Unknown Port / Unknown 01/06/2025 1:13 PM EDT 01/06/2025 1:17 PM EDT Tacho Echavarria MD CHEMISTRY ORDERABLES Final Result [facility] 1 [place] [address] * (ABNORMAL) CBC WITH DIFF (01/06/2025 1:13 PM EDT) [facility] WBC 5.1 3.7 - 10.3 x10(3)/mc L 01/06/2025 1:22 PM EDT [facility] RBC 3.61(L) 3.90 - 5.20 x10(6)/mc L 01/06/2025 1:22 PM EDT [facility] Hgb 11.0(L) 11.2 - 15.7 g/dL 01/06/2025 1:22 PM EDT [facility] Hct 33.2(L) 34.0 - 45.0 % 01/06/2025 1:22 PM EDT [facility] MCV 92.0 80.0 - 100.0 fL 01/06/2025 1:22 PM EDT [facility] MCH 30.5 26.0 - 34.0 pg 01/06/2025 1:22 PM EDT [facility] MCHC 33.1 30.7 - 35.5 g/dL 01/06/2025 1:22 PM EDT [facility] RDW 14.5 <=14.9 % 01/06/2025 1:22 PM EDT [facility] Platelet 170 155 - 369 x10(3)/mc L 01/06/2025 1:22 PM EDT [facility] MPV 8.8 8.8 - 12.5 fL 01/06/2025 1:22 PM EDT [facility] Neut # Prelim 3.3 1.6 - 6.1 x10(3)/mc L 01/06/2025 1:22 PM EDT [facility] Comment:Preliminary automate d absolute neutrophil count. Value may change if manual differential is indicated. Neut Percent 65.2 % 01/06/2025 1:22 PM EDT [facility] Comment:Neutrophils equals s egs plus bands Imm Gran% 0.2 % 01/06/2025 1:22 PM EDT [facility] Comment:Automated count of m etamyelocytes, myelocytes and promyelocytes. Lymph Percent 28.1 % 01/06/2025 1:22 PM EDT [facility] Armstrong Percent 4.3 % 01/06/2025 1:22 PM EDT [facility] Eos Percent 1.8 % 01/06/2025 1:22 PM EDT [facility] Baso Percent 0.4 % 01/06/2025 1:22 PM EDT [facility] Neut # 3.3 1.6 - 6.1 x10(3)/mc L 01/06/2025 1:22 PM EDT [facility] Comment:Neutrophils equals s egs plus bands IMMGRAN# 0.0 0.0 - 0.1 x10(3)/mc L 01/06/2025 1:22 PM EDT [facility] Comment:Automated count of m etamyelocytes, myelocytes and promyelocytes. An absolute IG <0.1 is reported as 0.0. Lymph # 1.4 1.2 - 3.9 x10(3)/mc L 01/06/2025 1:22 PM EDT [facility] Armstrong # 0.2(L) 0.3 - 0.9 x10(3)/mc L 01/06/2025 1:22 PM EDT [facility] Eos# 0.1 0.0 - 0.5 x10(3)/mc L 01/06/2025 1:22 PM EDT [facility] Baso # 0.0 0.0 - 0.1 x10(3)/mc L 01/06/2025 1:22 PM EDT [facility] Blood VENOUS STRUCTURE / Unknown Port / Unknown 01/06/2025 1:13 PM EDT 01/06/2025 1:17 PM EDT Tac[place] Echavarria MD HEMATOLOGY ORDERABLES Final Result [facility] 1 [place] [address] documented in this encounter Visit Diagnoses Diagnosis 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)- Primary documented in this encounter Additional Health Concerns Assessment Noted Time PHQ-9 Depression Total Score: 17 07/07/2 024 8:39 AM EST PHQ-2 Depression Total Score: 5 07/07/20 8:39 AM EST documented as of this encounter Care Teams Wood Mill Supervisor Relationship Specialty [place] [address] [place] [address] PCP - General 06/21/10 Arlyn Schmidt MD [address] [place] [address] Consulting Physician Internal Medicine-Endocrinology, Diabetes & Metabolism 11/28/20 Tacho Echavarria MD 1 [place] [address] Internal Medicine-Medical Oncology 11/12/23 Matt Ulrich MD 1 [place] [id number] Surgery-Surgical Oncology 12/04/23 Eze Brock Pastoral Care 12/13/23 Annette Walker, ARACELI Proof Passer 05/13/24 Batool Celis MD 1 [facility] [place] [address] Radiation Oncologist Radiology-Radiation Oncology 06/08/24 documented as of this encounter
--- OUTSIDE RECORDS SUMMARY | 2025-02-19 14:01 | XMS_ITS | Encounter Summary ---
Author Organization [place] [address] Care Team Providers Care Helicopter Crew Chief Name Role Phone Chetna Cedeno MD Primary Care Provider [phone] Arlyn Schmidt MD Unavailable [phone] Tacho Echavarria MD Unavailable [phone] Matt Ulrich MD Unavailable [phone] Eze Brock Unavailable Annette Walker Unavailable [phone] Batool Celis MD Unavailable [phone] Reason for Visit * Reason Comments Pharmacy Migraine Medication Management Qulipta pa renewal Encounter Details Date Type Department Care Team (Latest Contact Info) Description 12/23/2024 Specialty Pharmacy [facility] [address] [place] [address] Anisa Lozoya CPhT Pharmacy Migraine [...] Date Recorded PHQ-2 Total Score 5 07/07/2024 [facility] of Occupat ional Health - Occupational Stress [...] in a halfway (including now)? No 11/07/2023 [facility] IP Transportation Answer D [...] Lozoya CPhT - 12/23/2024 3:52 PM EDT [facility] Prior Authorization PA for Qulipta on 12/30/24. Last CR: 12/08/24 Last OV: 09/15/24. Will submit PA. [facility] Prior Authorization Submitted PA for Qulipta to [employer] insurance via covermymeds ([employer] [id number]). Will follow up on 12/25. * Leslie Bentley CPhT - 12/23/2024 3:52 PM EDT [facility] Prior Authorization Determination Received notice of PA approval for Qulipta.. PA approved from 12/23/24 to 12/23/25. Refill coordination scheduled for 12/31/24. documented in this encounter Plan of Treatment Upcoming Encounters Date Type Department Care Team (Late st Contact Info) Description 03/02/2025 11:40 AM EDT Office Visit [facility]P [facility] [address] [place] [address] [place] [address] [place] [address] 03/02/2025 12:45 PM EDT Procedure visit [facility] [address] [place] [address] Samm Ledesma, WATERPROOFER [address] [facility] [address] [place] [address] 03/10/2025 12:30 PM EDT Appointment [place] [address] 03/10/2025 1:00 PM EDT Appointment [facility] [place] [address] Tacho Echavarria MD [address] [place] [address] [id number] 04/29/2025 9:15 AM EDT Appointment [place] [address] Batool Celis MD [address] [place] [address] 05/19/2025 2:15 PM EST Office Visit [address] [address] Sin Tran MD [address] [place] [address] 08/12/2025 10:40 AM EST Appointment [facility] Women's Wellness [place] [address] Matt Ulrich MD [address] [place] [address] [address] [place] [address] documented as of this encounter Goals Goal [...] documented as of this encounter Care Teams Helicopter Crew Chief Relationship Specialty [place] [address] [place] [address] PCP - General 06/21/10 Arlyn Schmidt MD [address] [place] [address] Consulting Physician Internal Medicine-Endocrinology, Diabetes & Metabolism 11/28/20 Tacho Echavarria MD 1 [place] [address] Internal Medicine-Medical Oncology 11/12/23 Matt Ulrich MD 1 [place] [address] Surgery-Surgical Oncology 12/04/23 Eze Brock Pastoral Care 12/13/23 Annette Walker MSW Executive Chef 05/13/24 Batool Celis MD [address] [place] [address] [place] [address] Radiation Oncologist Radiology-Radiation Oncology 06/08/24 documented as of this encounter
--- OUTSIDE RECORDS SUMMARY | 2025-02-19 14:01 | XMS_ITS | Encounter Summary ---
Author Organization [place] [address] Care Team Providers Care Database Manager Name Role Phone Chetna Cedeno MD Primary Care Provider [phone] Arlyn Schmidt MD Unavailable [phone] Tacho Echavarria MD Unavailable [phone] Matt Ulrich MD Unavailable [phone] Eze Brock Unavailable Annette Walker Unavailable [phone] Batool Celis MD Unavailable [phone] Reason for Visit * Reason Onset Date Comments Botox Injection 01/01/2025 ~03/02/2025 Encounter Details Date Type Department Care Team (Late st Contact Info) Description 01/01/2025 Patient Outreach [facility] [address] [place] [address] Samm Ledesma, DRUM LOADER AND UNLOADER [address] [place] [address] Botox Injection (~03/02/2025 ) Social History Tobacco [...] 07/07/2024 [facility] of Occupat ional [facility] - Occupational Stress Questionnaire Answer [...] in a mcfp (including now)? No 11/07/2023 [facility] IP Transportation [...] 01/01/2025 11:30 AM EDT ~03/02/2025 ANNIE APPROVED: [id number] AUTH #: ASO ASBM Preferred [id number] DATES OF APPROVAL: 08/12/2024-08/11/2025 UNITS APPROVED: 620 units/ 4 visits documented in this encounter Plan of Treatment Upcoming Encounters Date Type Department Care Team (Late st Contact Info) Description 03/02/2025 11:40 AM EDT Office Visit [facility]ULO [facility]ERRITT [address] [place] [address] [place] [address] [place] [address] 03/02/2025 12:45 PM EDT Procedure visit [facility] [address] [place] [address] Samm Ledesma, DRUM LOADER AND UNLOADER [address] [place] [address] 03/10/2025 12:30 PM EDT Appointment [facility] [place], [place] [id number] 03/10/2025 1:00 PM EDT [facility]ointment [facility] [place] [address] Tacho Echavarria MD [address] [place] [address] [id number] 04/29/2025 9:15 AM EDT Appointment [place] [address] Batool Celis MD [address] [place] [address] [place] [address] 05/19/2025 2:15 PM EST Office Visit [address] [address] Sin Tran MD [address] [place] [address] 08/12/2025 10:40 AM EST Appointment [facility] Women's Wellness [facility] [place] [address] Matt Ulrich MD [address] [place] [address] [address] [place] [address] documented as of this encounter Goals Goal [...] documented as of this encounter Care Teams Database Manager Relationship Specialty [place] [address] [place] [address] PCP - General 06/21/10 Arlyn Schmidt MD [address] [place] [address] Consulting Physician Internal Medicine-Endocrinology, Diabetes & Metabolism 11/28/20 Tacho Echavarria MD 1 [place] [address] Internal Medicine-Medical Oncology 11/12/23 Matt Ulrich MD 1 [place] [address] Surgery-Surgical Oncology 12/04/23 Eze Brock Pastoral Care 12/13/23 Annette Walker MSW Director Of Health Care Marketing 05/13/24 Batool Celis MD [address] [place] [address] [place] [address] Radiation Oncologist Radiology-Radiation Oncology 06/08/24 documented as of this encounter
--- OUTSIDE RECORDS SUMMARY | 2025-02-19 14:01 | XMS_ITS | Encounter Summary ---
Author Organization [place] [address] Care Team Providers Care Senior Java Programmer Analyst Name Role Phone Chetna Cedeno MD Primary Care Provider [phone] Arlyn Schmidt MD Unavailable [phone] Tacho Echavarria MD Unavailable [phone] Matt Ulrich MD Unavailable [phone] Eze Brock Unavailable Annette Walker Unavailable [phone] Batool Celis MD Unavailable [phone] Encounter Details Date Type Department Care Team (Late st Contact Info) Description 12/29/2024 Telephone [facility] On[facility] [place], [place] [phone] Tacho Echavarria MD [address] [place] [address] [id number] Social History Tobacco Use Types Packs/Day Years [...] Total Score 5 07/07/2024 [facility] of Occupat ional Health - Occupational Stress [...] in a longterm (including now)? No 11/07/2023 [facility] [...] to accommodate/help however I can! Thanks, Osvaldo oJhnson PGx Navigator documented in this encounter Plan of Treatment Upcoming Encounters Date Type Department Care Team (Late st Contact Info) Description 03/02/2025 11:40 AM EDT Office Visit [facility] [address] [place] [address] [place] [address] [place] [address] 03/02/2025 12:45 PM EDT Procedure visit [facility] [address] [facility] [address] [place] [address] Samm Ledesma, APPLICATIONS CONSULTANT [address] [facility] [address] [place], [place] [id number] 03/10/2025 12:30 PM EDT Appointment [facility] [place], [place] [id number] 03/10/2025 1:00 PM EDT Appointment [facility] On[facility] [place], [place] [phone] Tacho Echavarria MD [address] [place] [id number] 04/29/2025 9:15 AM EDT Appointment [place] [address] Batool Celis MD [address] [place] [address] CANCER CARE [place], [place] [id number] 05/19/2025 2:15 PM EST Office Visit [address] [address] Sin Tran MD [address] [place] [address] 08/12/2025 10:40 AM EST Appointment [facility] Women's Wellness [place] [facility] [place] [address] Matt Ulrich MD [address] [place] [address] MUSA Zari [place] [address] documented as of this encounter Goals Goal Patient Goal Type Associated Problems Recent Progress Patient-Stated? Author Blood Pressure < 140/90 Blood Pressure 121/77(02/04 2:04 PM EDT) No Chetna Cedeno MD [facility] On track(2024 11:27 AM EDT) No Jasmin Porter, RN Note: Patient acknowledges understanding of new diagnosis, plan of care, available resources and how to contact Nurse Navigator with any future questions or concerns. [facility] Not on track(2024 11:27 AM EDT) [...] Final Result [facility] 1 [place], [place] [id number] documented in this encounter Visit Diagnoses Diagnosis [...] of this encounter Care Teams Senior Java Programmer Analyst Relationship Specialty [place] [address] [place] [address] PCP - General 06/21/10 Arlyn Schmidt MD [address] [place] [address] Consulting Physician Internal Medicine-Endocrinology, Diabetes & Metabolism 11/28/20 Tacho Echavarria MD 1 [place] [address] Internal Medicine-Medical Oncology 11/12/23 Matt Ulrich MD 1 [place] [address] Surgery-Surgical Oncology 12/04/23 Eze Brock Pastoral Care 12/13/23 Annette Walker MSW Brand Analyst 05/13/24 Batolo Celis MD 1 [facility] [address] Radiation Oncologist Radiology-Radiation Oncology 06/08/24 documented as of this encounter
--- OUTSIDE RECORDS SUMMARY | 2025-02-19 14:01 | XMS_ITS | Encounter Summary ---
Author Organization [place] [address] Care Team Providers Care Solution Make Up Operator Name Role Phone Chetna Cedeno MD Primary Care Provider [phone] Arlyn Schmidt MD Unavailable [phone] Tacho Echavarria MD Unavailable [phone] Matt Ulrich MD Unavailable [phone] Eze Brock Unavailable Annette Walker Unavailable [phone] Batool Celis MD Unavailable [phone] Reason for Visit * Reason Onset Date Comments Medication Refill 12/29/2024 Encounter Details Date Type Department Care Team (Late st Contact Info) Description 12/29/[address] [address] Munir Hilton MD [address] [place] [address] Medication Refill Social History Tobacco Use Types [...] from your doctor or pharmacy? Never 11/07/2023 [facility] Utilities Answer Date Recorded In the past [...] Date Recorded PHQ-2 Total Score 5 07/07/2024 [facility] [place] of Occupat ional Health - Occupational Stress [...] a long term (including now)? No 11/07/2023 [facility] IP Transportation Answer [...] 11:40 AM EDT Office Visit [facility]ULO MERRITT [address] [place] [address] [place] [address] [place] [address] 03/02/2025 12:45 PM EDT Procedure visit [facility] [address] [place] [address] [place] [address] Samm Ledesma, SENIOR CYTOGENETIC TECHNOLOGIST [address] [place] [address] 03/10/2025 12:30 PM EDT Appointment [place] [address] 03/10/2025 1:00 PM EDT Appointment [facility] Medical Oncology [place], [place] [phone] Tacho Echavarria MD [address] [place] [address] 04/29/2025 9:15 AM EDT Appointment [facility] [place] [address] Batool Celis MD 1 [facility] [place] [address] 05/19/2025 2:15 PM EST Office Visit [address] [facility] [address] [place] [address] Sin Tran MD [address] [place] [address] [place] [address] 08/12/2025 10:40 AM EST Appointment [facility] Women's Wellness [facility] [place] [phone] Matt Ulrich MD [address] [facility] 254 [place] [address] documented as of this encounter Goals Goal Patient Goal Type Associated Problems Recent Progress Patient-Stated? Author Blood Pressure < 140/90 Blood Pressure 121/77(02/04 2:04 PM EDT) No Chetna Cedeno MD [facility] Breast [facility] On track(2024 11:27 AM EDT) No Jasmin Porter, RN Note: Patient acknowledges understanding of new diagnosis, plan of care, available resources and how to contact Nurse Navigator with any future questions or concerns. Breast [facility] Breast Health Not on track(2024 11:27 [...] documented as of this encounter Care Teams Solution Make Up Operator Relationship Specialty [place] [address] [place] [address] PCP - General 06/21/10 Arlyn Schmidt MD [address] [place] [address] Consulting Physician Internal Medicine-Endocrinology, Diabetes & Metabolism 11/28/20 Tacho Echavarria MD 1 [place], [place] [phone] Internal Medicine-Medical Oncology 11/12/23 Matt Ulrich MD 1 [place], [place] [address] Surgery-Surgical Oncology 12/04/23 Eze Brock Pastoral Care 12/13/23 Annette Walker, ARACELI Engineer Specialist 05/13/24 Batool Celis MD 1 [facility] [place] [address] Radiation Oncologist Radiology-Radiation Oncology 06/08/24 documented as of this encounter
--- OUTSIDE RECORDS SUMMARY | 2025-02-19 14:01 | XMS_ITS | Encounter Summary ---
Author Organization [place] [address] Care Team Providers Care A Auxiliary Name Role Phone Chetna Cedeno MD Primary Care Provider [phone] Arlyn Schmidt MD Unavailable [phone] Tacho Echavarria MD Unavailable [phone] Matt Ulrich MD Unavailable [phone] Eze Brock Unavailable Annette Walker Unavailable [phone] Batool Celis MD Unavailable [phone] Reason for Visit * Reason Comments Pharmacy Oncology Management Abemaciclib Encounter Details Date Type Department Care Team (Latest Contact Info) Description 01/07/2025 Specialty Pharmacy [facility] [address] [place] [address] Anisa Lozoya CPhT Pharmacy Oncology [...] your doctor or pharmacy? Never 11/07/2023 [facility] Utilities Answer Date Recorded In the past 12 months has th e electric, gas, oil, or water [employer] threatened to shut off services in your [...] Total Score 5 07/07/2024 [facility] of Occupat ional Health - Occupational [...] in a correction (including now)? No 11/07/2023 [facility] IP Transportation Answer [...] Rodriguez RPH - 01/07/2025 10:56 AM EDT [facility] - Care Plan and Refill Review Refill questions and refill history verified. Last assessment 12/25/24. No reassessment needed at this time. Chetna Rodriguez Kianna Specialty Pharmacist documented in this encounter Plan of Treatment Upcoming Encounters Date Type Department Care Team (Late st Contact Info) Description 03/02/2025 11:40 AM EDT Office Visit [facility]ULO MERRITT [address] [place] [address] [place] [address] [place] [address] 03/02/2025 12:45 PM EDT Procedure visit [facility] NEUROLOG[facility]ECTOR [address] [place] [address] Samm Ledesma APRN [address] [address] [place] [address] 03/10/2025 12:30 PM EDT Appointment [place] [address] 03/10/2025 1:00 PM EDT Appointment [facility] [place] [address] Tacho Echavarria MD [address] [place] [address] 04/29/2025 9:15 AM EDT Appointment [place] [address] Batool Celis MD [address] [place] [address] [place] [address] 05/19/2025 2:15 PM EST Office Visit [address] [address] Sin Tran MD [address] [place] [address] 08/12/2025 10:40 AM EST Appointment [facility] Women's Wellness [facility] [place] [address] Matt Ulrich MD [address] [place] [address] 254 [place] [address] documented as of this encounter Goals Goal [...] documented as of this encounter Care Teams A Auxiliary Relationship Specialty [place] [address] [place] [address] PCP - General 06/21/10 Arlyn Schmidt MD [facility] [address] [place], [place] [phone] Consulting Physician Internal Medicine-Endocrinology, Diabetes & Metabolism 11/28/20 Tacho Echavarria MD [address] [place] [address] Internal Medicine-Medical Oncology 11/12/23 Matt Ulrich MD [address] [place] [address] Surgery-Surgical Oncology 12/04/23 Eze Brock Pastoral Care 12/13/23 Annette Walker MSW Electrical Assembly Supervisor 05/13/24 Batool Celis MD [address] [place] [address] [place] [address] Radiation Oncologist Radiology-Radiation Oncology 06/08/24 documented as of this encounter
--- OUTSIDE RECORDS SUMMARY | 2025-02-19 14:01 | XMS_ITS | Encounter Summary ---
Author Organization [place] [address] Care Team Providers Care Ambulance Operations Supervisor Name Role Phone Chetna Cedeno MD Primary Care Provider [phone] Arlyn Schmidt MD Unavailable [phone] Tacho Echavarria MD Unavailable [phone] Matt Ulrich MD Unavailable [phone] Eze Brock Unavailable Annette Walker Unavailable [phone] Batool Celis MD Unavailable [phone] Encounter Details Date Type Department Care Team (Late st Contact Info) Description 01/11/2025 Orders Only [facility] Medical Oncology [place], [place] [id number] Tacho Echavarria MD [address] [place] [address] [id number] Social History Tobacco Use Types Packs/Day Years [...] from your doctor or pharmacy? Never 11/07/2023 [facility] Utilities Answer Date Recorded [...] Total Score 5 07/07/2024 [facility] [place] of Occupat ional Health - Occupational Stress [...] a senior living (including now)? No 11/07/2023 [facility] IP Transportation Answer [...] AM EDT Office Visit [facility] [address] [place] [address] [place] [address] [place] [address] 03/02/2025 12:45 PM EDT Procedure visit [facility] NE[facility]OLOG[facility] HECT[facility] [address] [place] [address] Samm Ledesma, LICENSED MASSAGE THERAPIST [address] [facility] [address] [place], [place] [address] 03/10/2025 12:30 PM EDT Appointment [place] [address] 03/10/2025 1:00 PM EDT Appointment [facility] [place] [address] Tacho Echavarria MD [address] [place] [address] 04/29/2025 9:15 AM EDT Appointment [facility] [address] Batool Celis MD [address] [place] [address] CANCER CARE [place], [place] [phone] 05/19/2025 2:15 PM EST Office Visit [address] [address] Sin Tran MD [address] [place] [address] 08/12/2025 10:40 AM EST Appointment [facility] Women's Wellness [place] One [facility] [place] [address] Matt Ulrich MD [address] [place] [address] DR MUSA Zari [facility] [place] [address] documented as of this encounter Goals [...] documented as of this encounter Care Teams Ambulance Operations Supervisor Relationship Specialty [place] [address] [place] [address] PCP - General 06/21/10 Arlyn Schmidt MD [address] [place], [place] [phone] Consulting Physician Internal Medicine-Endocrinology, Diabetes & Metabolism 11/28/20 Tacho Echavarria MD 1 [place], [place] [phone] Internal Medicine-Medical Oncology 11/12/23 Matt Ulrich MD 1 [place], [place] [phone] Surgery-Surgical Oncology 12/04/23 Eze Brock Pastoral Care 12/13/23 Annette Walker, KNIFE SETTER GRINDER MACHINE Director News 05/13/24 Batool Celis MD 1 [facility] [place] [address] Radiation Oncologist Radiology-Radiation Oncology 06/08/24 documented as of this encounter
--- OUTSIDE RECORDS SUMMARY | 2025-02-19 14:01 | XMS_ITS | Encounter Summary ---
Author Organization [place] [address] Care Team Providers Care Silica Mixer Operator Name Role Phone Chetna Cedeno MD Primary Care Provider [phone] Arlyn Schmidt MD Unavailable [phone] Tacho Echavarria MD Unavailable [phone] Matt Ulrich MD Unavailable [phone] Eze Brock Unavailable Annette Walker TONGUE AND GROOVE MACHINE SETTER Unavailable [phone] Batool Celis MD Unavailable [phone] Encounter Details Date Type Department Care Team (Late st Contact Info) Description 12/30/2024 Social Work [facility] Cancer Care [facility] [place] [address] Sonny Fleming, TONGUE AND GROOVE MACHINE SETTER Social History Tobacco Use Types Packs/Day Years [...] doctor or pharmacy? Never 11/07/2023 [facility] Utilities Answer Date Recorded In the past 12 months has th e electric, gas, oil, or water [employer] threatened to shut off services in your [...] Score 5 07/07/2024 [facility] [place] of Occupat ional Health - Occupational Stress [...] a care home (including now)? No 11/07/2023 [facility] IP Transportation Answer D ate [...] AM EDT Office Visit [facility] [address] [place] [address] [place] [address] [place] [address] 03/02/2025 12:45 PM EDT Procedure visit [facility] [address] [place] [address] Samm Ledesma, SOFTWARE BUILD ENGINEER [address] [place] [address] 03/10/2025 12:30 PM EDT Appointment [place] [address] 03/10/2025 1:00 PM EDT Appointment Cancer Care Medical Oncology [place], [place] [id number] Tacho Echavarria MD [address] [place] [address] [id number] 04/29/2025 9:15 AM EDT Appointment [place] [address] Batool Celis MD [address] [place] [address] CANCER CARE [place], [place] [id number] 05/19/2025 2:15 PM EST Office Visit [place] [address] [place] [address] Sin Tran MD [address] [place] [address] 08/12/2025 10:40 AM EST Appointment [facility] Women's Well[place] [address] Matt Ulrich MD [address] [place] [address] [place] [address] documented as of this encounter Goals [...] uJlio MA documented as of this encounter Visit Diagnoses Not on filedocumented in this encounter Additional Health Concerns Assessment Noted Time PHQ-9 Depression Total Score: 17 024 8:39 AM EST PHQ-2 Depression Total Score: 5 07/07/20 24 8:39 AM EST documented as of this encounter Care Teams Silica Mixer Operator Relationship Specialty [place] [address] [place] [address] PCP - General 06/21/10 Arlyn Schmidt MD [address] [place], [place] 5834[address] Consulting Physician Internal Medicine-Endocrinology, Diabetes & Metabolism 11/28/20 Tacho Echavarria MD 1 [place], [place] [phone] Internal Medicine-Medical Oncology 11/12/23 Matt Ulrich MD 1 [place], [place] 4926[address] Surgery-Surgical Oncology 12/04/23 Eze Brock Pastoral Care 12/13/23 Annette Walker, TONGUE AND GROOVE MACHINE SETTER Steam Heating Installer 05/13/24 Batool Celis MD 1 [facility] [place] [address] Radiation Oncologist Radiology-Radiation Oncology 06/08/24 documented as of this encounter
--- OUTSIDE RECORDS SUMMARY | 2025-02-19 14:01 | XMS_ITS | Encounter Summary ---
Author Organization [place] [address] Care Team Providers Care Mobile Health Vehicle Operator Name Role Phone Chetna Cedeno MD Primary Care Provider [phone] Arlyn Schmidt MD Unavailable [phone] Tacho Echavarria MD Unavailable [phone] Matt Ulrich MD Unavailable [phone] Eze Brock Unavailable Annette Walker Unavailable [phone] Batool Celis MD Unavailable [phone] Reason for Visit * Reason Comments Pharmacy Oncology Management Pharmacy Reassessment abemaciclib (Verze nio) Encounter Details Date Type Department Care Team (Latest Contact Info) Description 12/25/2024 Specialty Pharmacy [facility] [address] [place] [address] Hilary Rivas, [facility] Pharmacy Oncology Management; Pharmacy Reassessment (abemaciclib [...] from your doctor or pharmacy? Never 11/07/2023 [facility] Utilities Answer Date Recorded In [...] often do you attend chur ch or scientology services? 1 to 4 times per year [...] in a penitentiary (including now)? No 11/07/2023 [facility] IP Transportation Answer D ate Recorded [...] Progress Notes * Rob Hilary, [facility] - 12/25/2024 10:18 AM EDT Specialty Pharmacy - Hematology/Oncology Reassessment Primary Implementation Director/Oncologist: Dr. Jericho Cole is a 59 y.o. [...] into the lungs daily. fluticasone propionate 1 [place] by Nasal route daily. Aerochamber MV 1 Each by [facility]Non-Drug; Combo Route) route as needed. lidocaine-prilocaine Apply [...] Roland RPH - 12/25/2024 10:18 AM EDT [facility] Per secure chat with provider. Will hold off on dose escalation at this time. Plan to re-evaluate in 1 month. documented in this encounter Plan of Treatment Upcoming Encounters Date Type Department Care Team (Late st Contact Info) Description 03/02/2025 11:40 AM EDT Office Visit [facility] [address] [place] [address] [place] [address] [place] [address] 03/02/2025 12:45 PM EDT Procedure visit [facility] [address] [place] [address] Samm Ledesma, PLANT UTILITY PERSON [address] [place] [address] 03/10/2025 12:30 PM EDT Appointment [facility] [place] [id number] 03/10/2025 1:00 PM EDT Appointment Cancer Care Medical Oncology [place], [place] 5611117 Tacho Echavarria MD [address] [place] [address] 04/29/2025 9:15 AM EDT Appointment [facility] RAD ONC [place], [place] [phone] Batool Celis MD [address] [place] [address] [place] [address] 05/19/2025 2:15 PM EST Office Visit [facility] [place] [address] [facility] [address] [place] [address] Sin Tran MD [facility] [place] [address] 08/12/2025 10:40 AM EST Appointment [facility] Women's Wellness [facility] [place] [address] Matt Ulrich MD [address] [place] [address] DR [address] [place] [address] documented as of this encounter [...] documented as of this encounter Care Teams Mobile Health Vehicle Operator Relationship Specialty [place] [address] [place] [address] PCP - General 06/21/10 Arlyn Schmidt MD [address] [place] [address] Consulting Physician Internal Medicine-Endocrinology, Diabetes & Metabolism 11/28/20 Tacho Echavarria MD 1 [place] [address] Internal Medicine-Medical Oncology 11/12/23 Matt Ulrich MD 1 [place] [address] Surgery-Surgical Oncology 12/04/23 Eze Brock Pastoral Care 12/13/23 Annette Walker, CUSTODIAL ENGINEER Shaft Sinker 05/13/24 Batool Celis MD 1 [facility] [place] [address] Radiation Oncologist Radiology-Radiation Oncology 06/08/24 documented as of this encounter
--- OUTSIDE RECORDS SUMMARY | 2025-02-19 14:01 | XMS_ITS | Encounter Summary ---
Author Organization [place] [address] Care Team Providers Care Caddymaster Name Role Phone Chetna Cedeno MD Primary Care Provider [phone] Arlyn Schmidt MD Unavailable [phone] Tacho Echavarria MD Unavailable [phone] Matt Ulrich MD Unavailable [phone] Eze Brock Unavailable Annette Walker Unavailable [phone] Batool Celis MD Unavailable [phone] Reason for Visit * Reason Comments Pharmacy Migraine Medication Management Qulipta Encounter Details Date Type Department Care Team (Latest Contact Info) Description 12/31/2024 Specialty Pharmacy [facility] [address] [place] [address] Annamarie Mark CPhT Pharmacy Migraine [...] from your doctor or pharmacy? Never 11/07/2023 [facility] Utilities Answer Date Recorded In the past 12 months has th e electric, gas, oil, or water [employer] threatened to shut off services in your [...] Total Score 5 07/07/2024 [facility] [place] of Occupat ional Health - Occupational Stress [...] in a correction (including now)? No 11/07/2023 [facility] IP [...] Mark CPhT - 12/31/2024 11:07 AM EDT [facility] Qulipta RTS til 01/02 * Charlotte Martino CPhT - 12/31/2024 11:07 AM EDT Specialty Pharmacy Refill Coordination Note Contacted [facility] today regarding refills of Qulipta. Copay amount: $0 Sent [employer] message. Patient informed of copay. * Glenna Vo CPhT - 12/31/2024 11:07 AM EDT Specialty Pharmacy Refill Coordination Note Contacted [facility] today regarding refills of Qulipta. Medication to be delivered by [facility] on 01/07. Copay amount: $0 Sent [employer] message. Patient informed of copay. * Glenna Vo CPhT - 12/31/2024 11:07 AM EDT [facility] Medication has been released from 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 documented in this encounter Plan of Treatment Upcoming Encounters Date Type Department Care Team (Late st Contact Info) Description 03/02/2025 11:40 AM EDT Office Visit [facility] [address] [place] [address] [place] [address] [place] [address] 03/02/2025 12:45 PM EDT Procedure visit [facility] [address] [place] [address] Samm Ledesma, ORE SMELTER [address] [place] [address] 03/10/2025 12:30 PM EDT Appointment [facility] [place], [place] [phone] 03/10/2025 1:00 PM EDT Appointment Cancer [place] [address] Tacho Echavarria MD [address] [place] [address] 04/29/2025 9:15 AM EDT Appointment [facility] RAD ONC [place], [place] [phone] Batool Celis MD [address] [place] [address] [place] [address] 05/19/2025 2:15 PM EST Office Visit [address] [place] [address] Sin Tran MD [address] [place] [address] RD [place] [address] 08/12/2025 10:40 AM EST Appointment [facility] Women's Wellness [place] [facility] [address] [place] [address] Matt Ulrich MD [address] [place] [address] [address] [place] [address] documented as of this encounter [...] documented as of this encounter Care Teams Caddymaster Relationship Specialty [place] [address] [place] [phone] PCP - General 06/21/10 Arlyn Schmidt MD [address] [place] [address] Consulting Physician Internal Medicine-Endocrinology, Diabetes & Metabolism 11/28/20 Tacho Echavarria MD 1 [place] [address] Internal Medicine-Medical Oncology 11/12/23 Matt Ulrich MD 1 [place] [address] Surgery-Surgical Oncology 12/04/23 Eze Brock Pastoral Care 12/13/23 Annette Walker, ARACELI Application Counselor 05/13/24 Batool Celis MD 1 [facility] [address] Radiation Oncologist Radiology-Radiation Oncology 06/08/24 documented as of this encounter
--- OUTSIDE RECORDS SUMMARY | 2025-02-19 14:01 | XMS_ITS | Encounter Summary ---
Author Organization [place] [address] Care Team Providers Care Aerial Hurricane Hunter Name Role Phone Chetna Cedeno MD Primary Care Provider [phone] Arlyn Schmidt MD Unavailable [phone] Tacho Echavarria MD Unavailable [phone] Matt Ulrich MD Unavailable [phone] Eze Brock Unavailable Annette Walker Unavailable [phone] Batool Celis MD Unavailable [phone] Encounter Details Date Type Department Care Team (Late st Contact Info) Description 12/25/2024 Telephone [facility] [address] Jasmin Porter RN Social History [...] 5 07/07/2024 [facility] of Occupat ional [facility] - Occupational Stress Questionnaire Answer [...] a senior care (including now)? No 11/07/2023 [facility] IP Transportation Answer [...] AM EDT Office Visit [facility] [place] [facility] [address] [place] [address] [place] [address] [place] [address] 03/02/2025 12:45 PM EDT Procedure visit [facility] [address] [address] [place] [address] Samm Ledesma, MELTER CASTER [address] [address] [place], [place] [phone] 03/10/2025 12:30 PM EDT Appointment [place] [address] 03/10/2025 1:00 PM EDT Appointment Cancer Care Medical Oncology [place], [place] [phone] Tacho Echavarria MD [address] [place] [address] [id number] 04/29/2025 9:15 AM EDT Appointment [facility] [place] [address] Batool Celis MD [address] [place] [address] CANCER CARE [place], [place] [phone] 05/19/2025 2:15 PM EST Office Visit [address] [place] [address] Sin Tran MD [address] [place], [place] [address], [place] [address] 08/12/2025 10:40 AM EST Appointment [facility] Women's Wellness [place] [facility] Emilee [place] [address] Matt Ulrich MD [address] [facility] [address] [place] [address] documented as of this encounter Goals Goal Patient Goal Type Associated Problems Recent Progress Patient-Stated? Author Blood Pressure < 140/90 Blood Pressure 121/77(02/04 2:04 PM EDT) No Chetna Cedeno MD Breast [facility] Breast Health On track(2024 11:27 AM EDT) No Jasmin Porter, RN Note: Patient acknowledges understanding of new diagnosis, plan of care, available resources and how to contact Nurse Navigator with any future questions or concerns. Breast [facility] Breast Health Not on track(2024 11:27 AM EDT) No Jasmin Porter, RAUL Note: Patient will be compliant with monthly SBE and is aware of who to contact for any unusual or concerning findings. Breast [facility] Breast Health On track(2024 11:27 [...] documented as of this encounter Care Teams Aerial Hurricane Hunter Relationship Specialty [place] [address] [place] [address] PCP - General 06/21/10 Arlyn Schmidt MD [address] [place] [address] Consulting Physician Internal Medicine-Endocrinology, Diabetes & Metabolism 11/28/20 Tacho Echavraria MD 1 [place] [address] Internal Medicine-Medical Oncology 11/12/23 Matt Ulrich MD 1 [place] [address] Surgery-Surgical Oncology 12/04/23 Eze Brock Pastoral Care 12/13/23 Annette Walker, [facility] Route Delivery Service Driver 05/13/24 Batool Celis MD 1 [facility] [place] [address] Radiation Oncologist Radiology-Radiation Oncology 06/08/24 documented as of this encounter
--- OUTSIDE RECORDS SUMMARY | 2025-02-19 14:01 | XMS_ITS | Encounter Summary ---
Author Organization [place] [address] Care Team Providers Care Registered Nurse Practitioner Name Role Phone Chetna Cedeno MD Primary Care Provider [phone] rAlyn Schmidt MD Unavailable [phone] Tacho Echavarria MD Unavailable [phone] Matt Ulrich MD Unavailable [phone] Eze Brokc Unavailable Annette Walker Unavailable [phone] Batool Celis MD Unavailable [phone] Encounter Details Date Type Department Care Team (Late st Contact Info) Description 12/29/2024 Orders Only [facility] [address] [place] [address] Elie Antoine, [facility] Restless leg syndrome; Essential hypertension, [...] your doctor or pharmacy? Never 11/07/2023 [facility] Utilities Answer Date Recorded In the past 12 months has [employer], oil, or water [employer] threatened to shut off services in your [...] 5 07/07/2024 [facility] of Occupat ional Health - Occupational [...] in a longterm (including now)? No 11/07/2023 [facility] IP Transportation Answer D ate [...] 11:40 AM EDT Office Visit [facility] [address] [place] [place] [address] [place] [address] [place] [address] 03/02/2025 12:45 PM EDT Procedure visit [facility] [address] [place] [address] Samm Ledesma APRN [address] [facility] [address] [place] [address] 03/10/2025 12:30 PM EDT Appointment [place] [address] 03/10/2025 1:00 PM EDT Appointment Cancer Care Medical Oncology [place], [place] [phone] Tacho Echavarria MD [address] [place] [id number] 04/29/2025 9:15 AM EDT Appointment [place] [address] Batool Celis MD [address] [facility] [address] CANCER CARE [place], [place] [address] 05/19/2025 2:15 PM EST Office Visit [address] [place] [address] Sin Tran MD [address] [place] [address] 08/12/2025 10:40 AM EST Appointment [facility] Women's Wellness [facility] [place] [address] Matt Ulrich MD [address] [place] [address] [address] [place] [address] documented as of this encounter Goals Goal [...] as of this encounter Care Teams Registered Nurse Practitioner Relationship Specialty [place] [address] [place] [address] PCP - General 06/21/10 Arlyn Schmidt MD [address] [place] [address] Consulting Physician Internal Medicine-Endocrinology, Diabetes & Metabolism 11/28/20 Tacho Echavarria MD 1 [place] [address] Internal Medicine-Medical Oncology 11/12/23 Matt Ulrich MD 1 [place] [address] Surgery-Surgical Oncology 12/04/23 Eze Brock Pastoral Care 12/13/23 Annette Walker MSW Quality Control Coordinator 05/13/24 Batool Celis MD 1 [facility] [place] [address] Radiation Oncologist Radiology-Radiation Oncology 06/08/24 documented as of this encounter
--- OUTSIDE RECORDS SUMMARY | 2025-02-19 14:01 | XMS_ITS | Encounter Summary ---
Author Organization [place] [address] Care Team Providers Care Aircraft Load Controller Name Role Phone Chetna Cedeno MD Primary Care Provider [phone] Arlyn Schmidt MD Unavailable [phone] Tacho Echavarria MD Unavailable [phone] Matt Ulrich MD Unavailable [phone] Eze Brock Unavailable Annette Walker Unavailable [phone] Batool Celis MD Unavailable [phone] Encounter Details Date Type Department Care Team (Late st Contact Info) Description 01/15/2025 Plan of Care Documentation [facility] Physical Therapy [address] [place] [address] Social History Tobacco Use Types [...] in a fpc (including now)? No 11/07/2023 [facility] IP Transportation [...] AM EDT Office Visit [facility] [place] [facility] [address] [place] [address] [place] [address] [place] [address] 03/02/2025 12:45 PM EDT Procedure visit [facility] [address] [facility] [address] [place] [address] Samm Ledesma, RN NEW GRADUATE [address] [facility] [address] [place] [address] 03/10/2025 12:30 PM EDT Appointment [facility] [place], [place] [id number] 03/10/2025 1:00 PM EDT Appointment Cancer Care Medical Oncology [place], [place] 9907517 Tacho Echavarria MD [address] [place] [address] [id number] 04/29/2025 9:15 AM EDT Appointment [facility] RAD ONC [place], [place] [phone] Batool Celis MD [address] [place] [address] CANCER [place] [phone] 05/19/2025 2:15 PM EST Office Visit [place] [address] [place] [address] Sin Tran MD [address] [place] [phone] 08/12/2025 10:40 AM EST Appointment [facility] Women's Wellness [place] [facility] [place] [id number] Matt Ulrich MD [address] [place] [address] [place] [address] documented as of this encounter [...] documented as of this encounter Care Teams Aircraft Load Controller Relationship Specialty [place] [address] [place] [address] PCP - General 06/21/10 Arlyn Schmidt MD [address] [place] [address] Consulting Physician Internal Medicine-Endocrinology, Diabetes & Metabolism 11/28/20 Tacho Echavarria MD 1 [place] [phone] Internal Medicine-Medical Oncology 11/12/23 Matt Ulrich MD 1 [place] [id number] Surgery-Surgical Oncology 12/04/23 Eze Brock Pastoral Care 12/13/23 Annette Walker, ARACELI Adaptive Physical Educator 05/13/24 Batool Celis MD 1 [facility] [place] [address] Radiation Oncologist Radiology-Radiation Oncology 06/08/24 documented as of this encounter
--- OUTSIDE RECORDS SUMMARY | 2025-02-19 14:01 | XMS_ITS | Encounter Summary ---
Author Organization [place] [address] Care Team Providers Care Elevator Conductor Name Role Phone Chetna Cedeno MD Primary Care Provider [phone] Arlyn Schmidt MD Unavailable [phone] Tacho Echavarria MD Unavailable [phone] Matt Ulrich MD Unavailable [phone] Eze Brock Unavailable Annette Walker Unavailable [phone] Batool Celis MD Unavailable [phone] Encounter Details Date Type Department Care Team (Late st Contact Info) Description 01/13/2025 Plan of Care Documentation [facility] Physical Therapy [address] [place] [address] Social History Tobacco Use Types [...] Date Recorded PHQ-2 Total Score 5 07/07/2024 [facility] ional Health - [...] 11/07/2023 [facility] IP Transportation Answer [...] to walk with no AD by then, [place] (but pt states that she was told this may have been a misdiagnosis), currently taking chemo pill, R mastectomy Jun 2024, radiation ended 09/25/24, chronic back issues with sciatica Physician: Jericho ESCOBAR Follow Up: 11/11/24 Evaluation Date: 10/30/24 Reassessment Due: 12/26/24 Primary [facility] [id number] [facility] Secondary Insurance: n/a Insurance Authorization: AMB REFERRAL TO PHYSICAL THERAPY Authorized (10/08/2024-01/28/2025) Visits Requested Visits Authorized Visits Completed Visits Scheduled -- Details Referral ID: [id number] Authorization Status Reason: Received Carrier Authorization Authorization Comments: -- Referred To: Shaunna Workman PT at [facility] PT Referred By: Tacho Echavarria MD at [facility] CANCER CTR MED ONC, [facility] Date: 10/08/2024 Referral Reasons: Specialty [...] other week Needs Assistance: No Understood: Yes folder machine adjuster // bars with unilat UE support [] high marches x10B [] hamstring curls x10B folder machine adjuster // bars with B UE support [] [...] deficits. pt verbalized understanding of this again. folder machine adjuster // bars with unilat UE support [] [...] arm swing during gait [] NMR education folder machine adjuster // bars with no support with gait [...] up about 2 days ago. Access Code: [email or web address] URL: [email or web address] Date: 11/11/2024 Prepared by: Romana Bowman Exercises [...] will be Independent with HEP to improve care home health and reduce risk for injury. [...] increase from 727 feet with RW to 7214-1758 feet with LRAD to improve gait elisha [...] away. Treatments to consist of Therapeutic exercise 40279, Neuromuscular re-education 36863, Manual soft tissue and/or joint mobilization 10270, Patient education, Therapeutic activity 27584, and Gait training 54011. Electronically signed by: Signed: Shaunna Workman PT Date: 01/13/2025 documented in this encounter Plan of Treatment Upcoming Encounters Date Type Department Care Team (Late st Contact Info) Description 03/02/2025 11:40 AM EDT Office Visit ROMULO MERRITT [address] [place] [address] [place] [address] [place] [address] 03/02/2025 12:45 PM EDT Procedure visit [facility] [address] [facility] [address] [place] [address] Samm Ledesma APRN [address] [facility] [address] [place] [address] 03/10/2025 12:30 PM EDT Appointment [facility] [place], [place] [id number] 03/10/2025 1:00 PM EDT Appointment [facility] [place] [address] Tacho Echavarria MD [address] [place] [address] [id number] 04/29/2025 9:15 AM EDT Appointment [facility] [place] [address] Batool Celis MD [address] [place] [address] [place] [address] 05/19/2025 2:15 PM EST Office Visit [facility] [address] [facility] [address] [place] [address] Sin Tran MD [address] [place] [address] 08/12/2025 10:40 AM EST Appointment [facility] [place] [address] Matt Ulrich MD [address] [place] [address] [address] [place] [address] documented as of this encounter Goals Goal [...] documented as of this encounter Care Teams Elevator Conductor Relationship Specialty [place] [address] [place] [address] PCP - General 06/21/10 Arlyn Schmidt MD [address] [place] [address] Consulting Physician Internal Medicine-Endocrinology, Diabetes & Metabolism 11/28/20 Tacho Echavarria MD 1 [place] [address] Internal Medicine-Medical Oncology 11/12/23 Matt Ulrich MD 1 [place], [place] [id number] Surgery-Surgical Oncology 12/04/23 Eze Brock Pastoral Care 12/13/23 Aaron Annette, ADVISORY SERVICES ASSOCIATE Saloonkeeper 05/13/24 Batool Celis MD [address] [place] [address] [place] [address] Radiation Oncologist Radiology-Radiation Oncology 06/08/24 documented as of this encounter
--- OUTSIDE RECORDS SUMMARY | 2025-02-19 14:01 | XMS_ITS | Encounter Summary ---
Author [place] [address] Care Team Providers Care Tours Hostess Name Role Phone Chetna Cedeno MD Primary Care Provider [phone] Arlyn Schmidt MD Unavailable [phone] Tacho Echavarria MD Unavailable [phone] Matt Ulrich MD Unavailable [phone] Eze Brock Unavailable Annette Walker Unavailable [phone] Batool Cleis MD Unavailable [phone] Reason for Visit * Reason Comments Medication Refill Encounter Details Date Type Department Care Team (Late st Contact Info) Description 01/15/2025 Refill [facility] On[facility] [place], [place] [id number] Tacho Echavarria MD [address] [place] [address] [phone] Medication Refill Social History Tobacco Use Types [...] often do you attend chur ch or orthodox services? 1 to 4 times per [...] in a correction (including now)? No 11/07/2023 [facility] IP Transportation Answer [...] 11:40 AM EDT Office Visit [facility] [address] [place] [address] [place] [address] [place] [address] 03/02/2025 12:45 PM EDT Procedure visit [facility] [address] [facility] [address] [place] [address] Samm Ledesma, EVENTS TRAFFIC CONTROLLER [address] [facility] [address] [place] [address] 03/10/2025 12:30 PM EDT Appointment [place] [address] 03/10/2025 1:00 PM EDT Appointment [facility] [place], [place] [phone] Tacho Echavarria MD [address] [place] [address] 04/29/2025 9:15 AM EDT Appointment [facility] RAD ONC [place], [place] [phone] Batool Celis MD 1 [facility] [place] [place] [address] 05/19/2025 2:15 PM EST [facility] [address] [facility] [address] [place] [address] Sin Tran MD [address] [place], [place] [address] [address] 08/12/2025 10:40 AM EST Appointment [facility] Women's Wellness [place] [facility] [place] [phone] Matt Ulrich MD 20 [facility] 254 [place] [address] documented as of this encounter Goals Goal Patient Goal Type Associated Problems Recent Progress Patient-Stated? Author Blood Pressure < 140/90 Blood Pressure 121/77(02/04 2:04 PM EDT) No Chetna Cedeno MD Breast [facility] Breast Health On track(2024 11:27 AM EDT) No Jasmin Porter, RAUL Note: Patient acknowledges understanding of new diagnosis, plan of care, available resources and how to contact Nurse Navigator with any future questions or concerns. Breast [facility] Breast Health Not on track(2024 [...] documented as of this encounter Care Teams Tours Hostess Relationship Specialty [place] [address] [place] [address] PCP - General 06/21/10 Arlyn Schmidt MD [address] [place] [address] Consulting Physician Internal Medicine-Endocrinology, Diabetes & Metabolism 11/28/20 Tacho Echavarria MD 1 [place], [place] [phone] Internal Medicine-Medical Oncology 11/12/23 Matt Ulrich MD 1 [place] [address] Surgery-Surgical Oncology 12/04/23 Eze Brock Pastoral Care 12/13/23 Annette Walker, ARACELI Hay Buckler 05/13/24 Batool Celis MD 1 [facility] [place] [address] Radiation Oncologist Radiology-Radiation Oncology 06/08/24 documented as of this encounter
--- OUTSIDE RECORDS SUMMARY | 2025-02-19 14:01 | XMS_ITS | Encounter Summary ---
Author Organization [place] [address] Care Team Providers Care Barrel Cutter Name Role Phone Chetna Cedeno MD Primary Care Provider [phone] Arlyn Schmidt MD Unavailable [phone] Tacho Echavarria MD Unavailable [phone] Matt Ulrich MD Unavailable [phone] Eze Brock Unavailable Annette Walker Unavailable [phone] Batool Celis MD Unavailable [phone] Reason for Visit * Reason Comments Medication Refill Encounter Details Date Type Department Care Team (Late st Contact Info) Description 01/14/2025 Refill [facility] Oncology [place], [place] [phone] Tacho Echavarria MD [address] [place] [address] [phone] Medication Refill Social History Tobacco Use Types [...] doctor or pharmacy? Never 11/07/2023 [facility] Utilities Answer Date Recorded In [...] any clubs o r organizations such as spiritism groups, unions, fraternal or athletic groups, or [...] Date Recorded PHQ-2 Total Score 5 07/07/2024 [facility] of Occupat ional Health - Occupational [...] any time in the past 12 m [facility], were you homeless or living in a custodial (including now)? No 11/07/2023 [facility] IP Transportation Answer D ate Recorded [...] 11:40 AM EDT Office Visit ROMULO MERRITT [address] [place] [address] [place] [address] [place] [address] 03/02/2025 12:45 PM EDT Procedure visit [facility] [address] [facility] [address] [place] [address] Samm Ledesma, CHUCKER 7[address] [facility] 100 [place] [address] 03/10/2025 12:30 PM EDT Appointment [facility] [place], [place] [id number] 03/10/2025 1:00 PM EDT Appointment [facility] [place] [address] Tacho Echavarria MD [address] [place] [address] [id number] 04/29/2025 9:15 AM EDT Appointment [facility] [place] [address] Batool Celis MD [address] [place] [address] 05/19/2025 2:15 PM EST Office Visit [address] [address] Sin Tran MD [address] [place] [address] 08/12/2025 10:40 AM EST Appointment [facility] Women's Wellness [facility] [place] [address] Matt Ulrich MD [address] [place] [address] [address] [place] [address] documented as of this encounter Goals Goal [...] documented as of this encounter Care Teams Barrel Cutter Relationship Specialty [place] [address] [place] [address] PCP - General 06/21/10 Arlyn Schmidt MD [address] [place] [address] Consulting Physician Internal Medicine-Endocrinology, Diabetes & Metabolism 11/28/20 Tacho Echavarria MD 1 [place] [address] Internal Medicine-Medical Oncology 11/12/23 Matt Ulrich MD 1 [place] [address] Surgery-Surgical Oncology 12/04/23 Eze Brock Pastoral Care 12/13/23 Aaron Annette, COOK SOUP Director Of Laboratory Operations 05/13/24 Batool Celis MD [address] [place] [address] [place] [address] Radiation Oncologist Radiology-Radiation Oncology 06/08/24 documented as of this encounter
--- OUTSIDE RECORDS SUMMARY | 2025-02-19 14:01 | XMS_ITS | Encounter Summary ---
Author Organization [place] [address] Care Team Providers Care Rolled Materials Worker Name Role Phone Chetna Cedeno MD Primary Care Provider [phone] Arlyn Schmidt MD Unavailable [phone] Tacho Echavarria MD Unavailable [phone] Matt Ulrich MD Unavailable [phone] Eze Brock Unavailable Annette Walker Unavailable [phone] Batool Celis MD Unavailable [phone] Reason for Visit * Reason Onset Date Comments Medication Refill 12/29/2024 Encounter Details Date Type Department Care Team (Late st Contact Info) Description 12/29/2024 Refill SEP Timoteo MERRITT [address] [place] [address] [place] [address] [place] [address] Medication Refill Social History Tobacco [...] from your doctor or pharmacy? Never 11/07/2023 [facility] Utilities Answer Date Recorded In the [...] Score 5 07/07/2024 [facility] - Occupational Stress Questionnaire [...] in the past 12 m [facility], were you homeless or living in a residential (including now)? No 11/07/2023 [facility] IP Transportation Answer D ate [...] 11:40 AM EDT Office Visit ROMULO [place] [address] [place] [address] [place] [address] [place] [address] 03/02/2025 12:45 PM EDT Procedure visit [facility]ECT[facility] [address] [facility] [address] [place] [address] Samm Ledesma APRN [address] [facility] [address] [place] [address] 03/10/2025 12:30 PM EDT Appointment [facility] [place], [place] [phone] 03/10/2025 1:00 PM EDT Appointment [facility] [place] [address] Tacho Echavarria MD [address] [place] [address] 04/29/2025 9:15 AM EDT Appointment [place] [address] Batool Celis MD [address] [place] [address] [place] [address] 05/19/2025 2:15 PM EST Office Visit [address] [address] Sin Tran MD [address] [place] [address] 08/12/2025 10:40 AM EST Appointment [facility] Women's Wellness [facility] [place] [address] Matt Ulrich MD [address] [place] [address] 254 [place] [address] documented as of this encounter Goals Goal [...] documented as of this encounter Care Teams Rolled Materials Worker Relationship Specialty [place] [address] [place] [address] PCP - General 06/21/10 Arlyn Schmidt MD [address] [place] [id number] Consulting Physician Internal Medicine-Endocrinology, Diabetes & Metabolism 11/28/20 Tacho Echavarria MD 1 [place] [address] Internal Medicine-Medical Oncology 11/12/23 Matt Ulrich MD 1 [place] [address] Surgery-Surgical Oncology 12/04/23 Eze Brock Pastoral Care 12/13/23 Annette Walker MSW Private Branch Exchange Repairer 05/13/24 Batool Celis MD [address] [place] [address] [place] [address] Radiation Oncologist Radiology-Radiation Oncology 06/08/24 documented as of this encounter
--- OUTSIDE RECORDS SUMMARY | 2025-02-19 14:01 | XMS_ITS | Encounter Summary ---
Author Organization [place] [address] Care Team Providers Care Bin Tripper Operator Name Role Phone Chetna Cedeno MD Primary Care Provider [phone] Arlyn Schmidt MD Unavailable [phone] Tacho Echavarria MD Unavailable [phone] Matt Ulrich MD Unavailable [phone] Eze Brock Unavailable Annette Walker MACHINIST APPRENTICE WOOD Unavailable [phone] Batool Celis MD Unavailable [phone] Encounter Details Date Type Department Care Team (Late st Contact Info) Description 12/29/2024 Social Work [facility] Cancer Care [facility] [place] [address] Annette Walker, MACHINIST APPRENTICE WOOD Social History Tobacco Use Types Packs/Day Years [...] Recorded In the past 12 months has [employer], oil, or water SET threatened to shut off services in your [...] in a usp (including now)? No 11/07/2023 [facility] IP Transportation [...] - 12/29/2024 4:05 PM EDT 12/29/24 1603 Barrel Loader Assessment Referred By Patient call Disease/Mission Site Supervisor Bridges And Buildings Assignment Breast cancer Reason for Referral Community Supports Identified Needs Adjustment to illness;Housing Social Work Interventions Community Referral;Education/Information;Brief Couseling/Support (MACHINIST TOOL AND DIE received call from Patient requesting 's letter for [facility] air conditioner program. MACHINIST TOOL AND DIE drafted letter and co worker, Sonny Fleming MACHINIST TOOL AND DIE will follow up with MD for signature and share with Patient.) documented in this encounter Plan of Treatment Upcoming Encounters Date Type Department Care Team (Late st Contact Info) Description 03/02/2025 11:40 AM EDT Office Visit ROMULO Mahmood [address] [place] [address] [place] [address] [place] [address] 03/02/2025 12:45 PM EDT Procedure visit [facility] NEUR[facility]ECT[facility] [address] [facility] [address] [place] [address] Samm Ledesma, LABOR RELATIONS CONSULTANT [address] [facility] [address] [place] [address] 03/10/2025 12:30 PM EDT Appointment [place] [place] [address] 03/10/2025 1:00 PM EDT Appointment [facility] Medical Oncology [place], [place] [phone] Tacho Echavarria MD 1 [place] [address] 04/29/2025 9:15 AM EDT Appointment [place] [address] Batool Celis MD [address] [facility] [place] [address] 05/19/2025 2:15 PM EST Office Visit [facility] [address] [place] [address] 1[address] [place] [address] Sin Tran MD [address] [place] [address] 08/12/2025 10:40 AM EST Appointment [facility] Women's Wellness [facility] [place] [address] Matt Ulrich MD 20 [facility] [address] [place] [address] documented as of this encounter Goals Goal [...] documented as of this encounter Care Teams Bin Tripper Operator Relationship Specialty [place] [address] [place] [address] PCP - General 06/21/10 Arlyn Schmidt MD [address] [place] [address] Consulting Physician Internal Medicine-Endocrinology, Diabetes & Metabolism 11/28/20 Tacho Echavarria MD 1 [place], [place] [phone] Internal Medicine-Medical Oncology 11/12/23 Matt Ulrich MD 1 [place] [address] Surgery-Surgical Oncology 12/04/23 Eze Brock Pastoral Care 12/13/23 Annette Walker MSW Supervisor Bridges And Buildings 05/13/24 Batool Celis MD 1 [facility] [place] [address] Radiation Oncologist Radiology-Radiation Oncology 06/08/24 documented as of this encounter
--- OUTSIDE RECORDS SUMMARY | 2025-02-19 14:02 | XMS_ITS | Clinical Summary ---
Author Organization SHAUNNA LIMABLESSING OD Address One [facility] [place] [address] Phone Care Team Providers Care Utilization Management Um Nurse Name Role Phone Chetna Cedeno MD Primary Care Provider [phone] Arlyn Schmidt MD Unavailable [phone] Tacho Echavarria MD Unavailable [phone] Matt Ulrich MD Unavailable [phone] Eze Brock Unavailable Annette Walker AUTOMATIC TRANSMISSION MECHANIC Unavailable [phone] Batool Celis MD Unavailable [phone] Allergies Active Allergy Reactions Criticality Noted Date [...] (AEROCHAMBER MV) Mis Spacer 1 Each by [facility].(Non-Drug; Combo Route) route as [...] Active fluticasone propionate (FLONASE) 50 mcg/actuation Nasl Victoria, Suspension 1 Victoria by Nasal route daily. 1 Each 07/03/20 [...] migh t be different from the original. [facility] - Sin Tran MD [...] or Functional capacity documented (EVERY VISIT)01/03/2022 Pharmacy: [address] [phone] [facility] [phone] [facility] POA: 02/10/2025 josh as expected #[id number] Josh 08-05-2018 adm [facility] 08-14-18 adm UDS 2 adm Care gap audit completed by Medina White RN on 01/01/2022. 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 Assessment & Plan (12/30/2020 [...] Description 02/15/2025 Telephone [facility] [place] [phone] Tacho Echavarria MD 02/12/2025 Telephone [place] [address] Eze Rowland MD Follow-up (Updated form, loan deferment form ) 02/10/2025 10:30 AM EDT Office Visit [place] [address] [place] [address] Sin Tran MD Chronic pain syndrome (Primary Dx); Post laminectomy syndrome 02/10/2025 Patient Outreach [facility] [place] [phone] Tacho Echavarria MD Oncology Nurse Navigation 02/10/2025 Orders Only [facility] [place] [phone] Shilpa Cline RN 02/08/2025 Refill [facility] [place] [address] Tacho Echavarria MD Medication Refill 02/05/2025 Telephone [facility] [place] [phone] Tacho Echavarria MD Symptom Call (lightheaded / headache ) 02/05/2025 Tele[address] [place] [address] Narda Vickers, Clerical Staff Integrative Oncology Referral 02/05/2025 Telephone [facility] [address] [address] Chetna Cedeno MD Other (BW) 02/04/2025 2:03 PM EDT - 02/04/2025 11:59 PM EDT Hospital Encounter [facility] [place] [address] Tacho Echavarria MD Invasive ductal carcinoma of breast, female, right (HCC) (Primary Dx); Chemotherapy follow-up examination; Encounter for monitoring aromatase inhibitor therapy; Vitamin D deficiency; Port-A-Cath in place; Reactive depression Discharge Disposition: Home or Self Care 02/04/2025 1:48 PM EDT - 02/04/2025 2:02 PM EDT Hospital Encounter [place] [address] Tacho Echavarria MD Invasive ductal carcinoma of breast, female, right (HCC) (Primary Dx) Discharge Disposition: Home or Self Care 02/04/2025 11:00 AM EDT - 02/04/2025 1:47 PM EDT Hospital Encounter [facility] [address] [address] Tacho Echavarria MD Mosko, Mallory, PA-C Invasive ductal carcinoma of breast, female, right (HCC) (Primary Dx); Encounter for monitoring aromatase inhibitor therapy; Encounter for screening mammogram for breast cancer Discharge Disposition: Home or Self Care 02/04/2025 Social Work [facility] Cancer [facility] [place] [address] Annette Walker MSW 02/04/[address] [place] [address] Aliya Harden, Clerical Staff Appointment Needed 02/03/[address] [address] Sin Tran MD Other (Pain pump meds) 02/03/2025 Specialty Pharmacy [facility] [address] [place] [address] Anisa Lozoya, [facility] Oncology Management (Abemaciclib) 02/02/2025 11:20 AM EDT Telemedicine [facility] [address] [place] [address] [address] [place] [address] Samm Ledesma APRN Chronic migraine without aura, intractable, with status migrainosus (Primary Dx); Paresthesia; Invasive ductal carcinoma of breast, female, right (HCC); Pituitary lesion; Radicular syndrome of left leg Discharge Disposition: Home or Self Care 02/02/2025 Specialty Pharmacy [facility] [address] [place] [address] Kevin Chacon, [facility] Migraine Medication Management (Nurtec) 02/01/2025 Social Work [facility] [place] [address] Sonny Fleming, [facility] 02/01/2025 Telephone [facility] [place] [address] Tacho Echavarria MD Other (Currently inpatient at [facility] ) 01/29/2025 Telephone [facility] [place] [address] Tacho Echavarria MD Symptom Call (Diarrhea, body aches, vomiting) 01/29/2025 Social Work [facility] [place] [address] Sonny Fleming, [facility] 01/29/2025 Patient Outreach [place] [address] Shilpa Cline, mold stripper Nurse Navigation 01/28/2025 Orders Only [facility] [place] [address] Tacho Echavarria MD Invasive ductal carcinoma of breast, female, right (HCC) (Primary Dx) 01/28/2025 Telephone [facility] [place] [address] Tacho Echavarria MD Patient Question (question about test result ) 01/28/2025 Specialty Pharmacy [facility] [address] [place] [address] Sheridan Arellano, [facility] Migraine Medication Management (Qulipta) 01/27/2025 Results Follow-Up [facility] [address] [place] [address] Benito Snell, PharmD PHARMACOGENOMIC PANEL 01/21/2025 Orders Only [facility] [address] [place] [address] Osvaldo Johnson, Clerical Staff 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) (Primary Dx) 01/18/2025 Telephone [facility] [place] [address] Tacho Echavarria MD 01/15/2025 1:30 PM EDT - 01/15/2025 11:59 PM EDT Hospital Encounter [facility] [place] [phone] Tacho Echavarria MD Argent, Lillian L, APRN Hot flashes related to aromatase inhibitor therapy (Primary Dx); Vitamin D deficiency Discharge Disposition: Home or Self Care 01/15/2025 1:15 PM EDT - 01/15/2025 1:29 PM EDT Hospital Encounter [place] [address] Tacho Echavarria MD Invasive ductal carcinoma of breast, female, right (HCC) (Primary Dx); Cold sweat; Lightheaded; Shakiness Discharge Disposition: Home or Self Care 01/15/2025 11:55 AM EDT - 01/15/2025 1:14 PM EDT Hospital Encounter [facility] Physical Therapy [address] [place] [address] Kylah Lawler, PT Discharge Disposition: Home or Self Care 01/15/2025 Refill [facility] [address] [place] [address] Chetna Cedeno MD Medication Refill 01/15/2025 Refill [facility] [address] [place] [address] Samm Ledesma APRN Medication Refill 01/15/2025 Refill [facility] [place] [address] Tacho Echavarria MD Medication Refill 01/15/2025 Plan of Care Documentation [facility] Physical Therapy [address] [place] [address] 01/15/2025 Plan of Care Documentation [facility] Physical Therapy [address] [place] [address] 01/15/2025 Telephone [place] [address] Tacho Echavarria MD Symptom Call (shakiness, light headed, cold chills, and breaking out in sweats ) 01/15/2025 Specialty Pharmacy [facility] [address] [place] [address] Annamarie Mark [facility] Migraine Medication Management (Ubrelvy) 01/14/2025 Refill [facility] [place] [address] Tacho Echavarria MD Medication Refill 01/13/2025 2:56 PM EDT - 01/13/2025 11:59 PM EDT Hospital Encounter [facility] Physical Therapy [address] [place] [address] Shaunna Workman, ALECIA Discharge Disposition: Home or Self Care 01/13/2025 Plan of Care Documentation [facility] Physical Therapy [address] [place] [address] 01/11/2025 Orders Only [facility] [place] [address] Tacho Echavarria MD 01/07/2025 Specialty Pharmacy [facility] [address] [place] [phone] Anisa Lozoya CPhT Pharmacy Oncology Management (Abemaciclib) 01/06/2025 1:14 PM EDT - 01/06/2025 11:59 PM EDT Hospital Encounter [place] [address] Tacho Echavarria MD Invasive ductal carcinoma of [...] EDT Hospital Encounter [facility] [place] [phone] Tacho Echavarria MD Invasive ductal carcinoma of breast, female, right (HCC) (Primary Dx) Discharge Disposition: Home or Self Care 01/01/2025 Patient Outreach [facility] [address] [place] [phone] Samm Ledesma APRN Botox Injection (~03/02/2025 ) 12/31/2024 Specialty Pharmacy [facility] [address] [place] [address] Annamarie Mark, [facility] Migraine Medication Management (Qulipta) 12/30/2024 Social Work [facility] [place] [address] Sonny Fleming, AUTOMATIC TRANSMISSION MECHANIC 12/29/2024 Social Work [facility] [place] [address] Annette Walker, AUTOMATIC TRANSMISSION MECHANIC 12/29/2024 Orders Only [facility] [address] [place] [address] Blake Antoine, [facility] Restless leg syndrome; Essential hypertension, benign 12/29/2024 Refill [place] [address] [address] [place] [address] Munir Hilton MD Medication Refill 12/29/2024 [facility] [facility] [address] [address] Chetna Cedeno MD Medication Refill 12/29/2024 Telephone [facility] [place] [address] Tacho Echavarria MD 12/28/2024 Orders Only [facility] [place] [phone] Tacho Echavarria MD 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) (Primary Dx) 12/25/2024 Specialty Pharmacy [facility] [address] [place] [address] Hilary Rivas, [facility] Pharmacy Oncology Management; Pharmacy Reassessment (abemaciclib (Verzenio)) 12/25/2024 Telephone [facility] Women's [facility] [place] [phone] Jasmin Porter RN 12/23/2024 Specialty Pharmacy [facility] [address] [place] [address] Anisa Lozoya, [facility] Migraine Medication Management (Qulipta pa renewal) 12/23/2024 Telephone [facility] [place] [address] Tacho Echavarria MD 12/23/2024 Telephone [facility] [address] [place] [address] Tacho Echavarria MD Follow-up 12/14/2024 11:09 AM EDT - 12/14/2024 11:59 PM EDT Hospital Encounter [facility] Physical Therapy [place] [address] [facility] [address] [place] [address] Kylah Lawler PT Discharge Disposition: Home or Self Care 12/11/2024 Telephone [facility] Physical Therapy [place] [address] [place] [address] Romana Bowman PTA Cancelled Appointment (Car in shop will not get done till 5 ) 12/10/2024 2:46 PM EDT - 12/10/2024 11:59 PM EDT Hospital Encounter [place] [address] Tacho Echavarria MD 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) (Primary Dx); Chemotherapy-induced nausea; Anxiety about treatment; Acquired lymphedema; Encounter for monitoring aromatase inhibitor therapy Discharge Disposition: Home or Self Care 12/10/2024 2:30 PM EDT - 12/10/2024 2:45 PM EDT Hospital Encounter [place] [address] Tacho Echavarria MD Invasive ductal carcinoma of breast, female, right (HCC) (Primary Dx); 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) Discharge Disposition: Home or Self Care 12/10/2024 Specialty Pharmacy [facility] [address] [place] [address] Batool Smith, [facility] Pharmacy Oncology Management (Verzenio 100mg) 12/10/2024 Social Work [facility] Cancer Care [facility] [place] [phone] Annette Walker, ARACELI 12/09/2024 Specialty Pharmacy [facility] [address] [place] [address] Annamarie Mark, [facility] Migraine Medication Management (Qulipta) 12/08/2024 2:35 PM EDT Procedure visit [facility] [address] [place] [address] Samm Ledesma APRN Chronic migraine without aura, intractable, with status migrainosus (Primary Dx) Discharge Disposition: Home or Self Care 12/08/2024 7:59 AM EDT - 12/08/2024 11:59 PM EDT Hospital Encounter [facility] Physical Therapy [address] [place] [address] Shaunna Workman, PT Discharge Disposition: Home or Self Care 12/08/2024 Specialty Pharmacy [facility] [address] [place] [address] [facility] Migraine Medication Management (Ubrelvy) 12/07/2024 Results Follow-Up [facility] [address] [place] [address] King Oliva MD PATHOLOGY TISSUE REQUEST 12/04/2024 [facility] Work [facility] [place] [address] Aaron Annette, [facility] 12/04/2024 Travel 12/03/2024 9:00 AM EDT - 12/03/2024 11:59 PM EDT Hospital Encounter [facility] Physical Therapy [place] [address] [place] [address] Shaunna Workman, PT Discharge Disposition: Home or Self Care 12/03/2024 8:00 AM EDT - 12/03/2024 8:59 AM EDT Hospital Encounter [facility] Physical Therapy [place] [address] [place] [address] Romana Bowman, COTA Discharge Disposition: Home or Self Care 12/03/2024 [facility] [place] [address] Sonny Fleming, [facility] 12/02/2024 9:36 AM EDT - 12/02/2024 11:59 PM EDT Hospital Encounter [facility] Physical Therapy [address] [place] [address] Shaunna Workman, PT Discharge Disposition: Home or Self Care 12/02/2024 Orders Only [facility] [place] [address] Tacho Echavarria MD 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) (Primary Dx) 12/01/2024 10:51 AM EDT Anesthesia Event [facility] [address] [place] [address] Aliya Friedman MD Record, Batool Velazquez, LAND DEVELOPMENT MANAGER 12/01/2024 9:22 AM EDT - 12/01/2024 11:59 PM EDT Hospital Encounter [facility] [address] [place] [address] King Oliva MD Judge, Lisa M, MD O N Shaylee curtis, LOUIE Nausea and vomiting, unspecified vomiting type; Gastroesophageal reflux disease without esophagitis Discharge Disposition: Home or Self Care 12/01/2024 Refill [facility] [place] [phone] Tacho Echavarria MD Medication Refill 12/01/2024 Specialty Pharmacy [facility] [address] [place] [phone] Annette Renee, [facility] Oncology Management (Abemaciclib) 11/30/2024 Nurse Triage [facility] [place] [address] Sandy Gonzalez RN 11/26/2024 8:00 AM EDT - 11/26/2024 11:59 PM EDT Hospital Encounter [facility] Physical Therapy [address] [place] [phone] Shaunna Workman, PT Discharge Disposition: Home or Self Care 11/25/2024 Social Work [facility] [place] [address] Nati Fleming, [facility] 11/23/2024 12:12 PM EDT - 11/23/2024 11:59 PM EDT Hospital Encounter [facility] Physical Therapy [address] [place] [phone] Shaunna Workman, PT Discharge Disposition: Home or Self Care 11/23/2024 12:00 PM EDT - 11/23/2024 12:11 PM EDT Hospital Encounter [facility] Physical Therapy [address] [place] [address] Kylah Lawler, PT Discharge Disposition: Home or Self Care 11/23/2024 Telephone [facility] [place] [address] [place] [address] Krissy Rhodes APRN Other 11/23/2024 Telephone [facility] [address] [place] [address] Samm Ledesma, LEYLA Headache 11/22/2024 10:32 AM EDT - 11/22/2024 1:[address] [facility] [place] [address] Stone Castellano MD Acute nonintractable headache, unspecified headache type (Primary Dx) Discharge Disposition: Home or Self Care 11/22/2024 Nurse Triage [facility] Now [address] [place] [phone] Macarena Aldrich RN 11/21/2024 1:21 PM EDT - 11/21/2024 5:[address] [facility] [place] [address] Saúl Melendez MD Migraine with status migrainosus, not intractable, unspecified migraine type (Primary Dx) Discharge Disposition: Home or Self Care 11/21/2024 Travel 11/21/2024 Nurse Triage [facility] Now [address] [place] [phone] Annette Moreira, RAUL 11/21/2024 Telephone [facility] [place] [address] Tacho Echavarria MD Symptom Call 11/19/2024 2:21 PM EDT - 11/19/2024 11:59 PM EDT Hospital Encounter [facility] Physical Therapy [place] [address] [facility] [address] [place] [address] Kylah Lawler, ALECIA Discharge Disposition: Home or Self Care from Last 3 Months Immunizations Immunization Administration Dates Next Due Influenza High Dose 06/25/2024, 4(Deferred: Other - patient is getting vaccine at [facility]) Influenza Vaccine Quadrivalent PF 03/27/2023,01/2015 Influenza [...] Surgeon: Stone Cronin MD; Location: [facility]; Service: Endoscopy GASTRIC BYPASS SURGERY 05/01/2017 Abdomen/N/A LAPAROSCOPIC SLEEVE GASTRECTOMY ; Surgeon: Marcus Perez MD; Location: [facility]; Service: General IR 2 LEVEL [...] Surgeon: Munir Hilton MD; Location: [facility]; Service: Pain Management Medical devices from this surgery are in the Medical Devices section. SPINE SURGERY 01/04/2021 N/A PAIN PUMP PERMANENT IMPLANT; Surgeon: Munir Hilton MD; Location: [facility]; Service: Pain Management Medical devices from this surgery are in the Medical Devices section. IR FLUOROSCOPY GUIDED NEEDLE PLACEMENT 01/17/2021 IR FLUOROSCOPY GUIDED NEEDLE PLACEMENT 01/17/2021 [facility] IR GUIDED INJECT TRANSFORAM EPIDUR LUMB OR SACRAL SINGLE LVL 08/03/2022 IR GUIDED INJECT TRANSFORAMINAL EPIDUR LUMB OR SACRAL SINGLE LVL 08/03/2022 Sin Tran MD [facility]ING BREAST BIOPSY 10/25/2023 Right 5:00 and 6:00 IR PORT PLACEMENT EQUAL OR > 5 YEARS 11/29/2023 IR PORT PLACEMENT EQUAL OR > 5 YEARS 11/29/2023 Joselito Goodwin MD [facility] IR MASTECTOMY 07/06/2024 Right Right modified radical mastectomy; Surgeon: Matt Ulrich MD; Location: [facility] MAIN OR; Service: General Medical History Medical [...] the past 12 months has th e [email or web address], gas, oil, or water company threatened to [...] Date Recorded PHQ-2 Total Score 5 07/07/2024 [facility] - Occupational [...] in a long-term (including now)? No 11/07/2023 [facility] IP Transportation Answer D [...] 11:40 AM EDT Office Visit [facility]ULO MERRITT [address] [place] [address] [place] [address] [place] [address] 03/02/2025 12:45 PM EDT Procedure visit [facility] [address] [place] [address] Samm Ledesma, LAND DEVELOPMENT MANAGER [address] [facility] [address] [place] [address] 03/10/2025 12:30 PM EDT Appointment [facility] [place], [place] [phone] 03/10/2025 1:00 PM EDT Appointment [facility] [place] [address] Tacho Echavarria MD [address] [place] [phone] 04/29/2025 9:15 AM EDT Appointment [place] [address] Batool Celis MD [address] [facility] [place] [address] 05/19/2025 2:15 PM EST Office Visit [facility] [address] [place] [address] [address] [place] [address] Sin Tran MD [address] [place] [address] 08/12/2025 10:40 AM EST Appointment [facility] Women's Wellness [facility] [place] [address] Matt Ulrich MD [address] [place] [address] [address] [place] [phone] Health Maintenance Due Date Last Done Comments [...] Tdap) 08/25/2024 08/25/2014 Influenza Vaccine (#1) 2025 4, 03/27/2023, 03/26/2022, Additional history exists Colon Cancer [...] for any unusual or concerning findings. Breast [facility] Breast Health On track(2024 11:27 AM EDT) No Demi Garibay, RAUL Note: Patient will be compliant with taking Aromatase Inhibitor daily and understands who to contact to discuss any side effects or complications. Maintain a healthy diet, exercise regularly and maintain an ideal body weight General No Sanam Julio MA Medical Devices Implanted Type Area Transcribing Machine Operator Device Identifier Shelf Expiration Date Model / Serial / Lot Kit Acc .133in Injex Didi Baso4 Biwing Flxb Rem Tl Preld - [id number] Implanted:Qty: 1 on 02/24/2020 by Munir Hilton MD at [facility] N/A: Back [employer]:NEURO 10/28/2023 [id number] / / [id number] Neurostimulator Rechar Adapt-Stim Sure Scan Intellis - [id number] Implanted:Qty: 1 on 02/24/2020 by Munir Hilton MD at [facility] NA: Back [employer]:NEURO 12/19/2020 [id number] / [id number] / Kit Lead Percutaneous Mri Surescan Vectris 1x8 60cm - [id number] Implanted:Qty: 1 on 02/24/2020 by Munir Hilton MD at [facility] NA: Back [employer]:NEURO 09/09/2023 [id number] / / [id number] Kit Lead Percutaneous Mri Surescan Vectris 1x8 60cm - [id number] Implanted:Qty: 1 on 02/24/[facility] [employer]:NEURO 10/08/2023 [id number] / / [id number] Device Suturing Mechanical Fixate Tissue Band - [id number] Implanted:Qty: 1 on 02/24/2020 by Munir Hilton MD at [facility] NA: Back [employer]:NEUROMODULA TION 02/03/2024 FB-101- / / [id number] Device Suturing Mechanical Fixate Tissue Band - [id number] Implanted:Qty: 1 on 02/24/2020 by Munir Hilton MD at [facility]/A: Back [employer]:NEUROM[employer]A TION 02/03/2024 FB-101- / / [id number] Envelope Absorbable Tyrx Polyarylate Medium 2.7in X 2.5in - [id number] Implanted:Qty: 1 on 02/24/2020 by Munir Hilton MD at [facility] N/A: Back [employer]:NEURO 12/03/2020 [id number] / / [id number] Device Sut Fixate Anchr Ld Tiss Bnd [id number] - [id number] Implanted:Qty: 1 on 01/04/2021 by Munir Hilton MD at [facility] N/A: Back [employer]:NEUROM[employer]A [employer] [id number] 10/25/2024 FB-101-01 / / [id number] Cath It 1-Pc 114cm 86cm Didi 4-Lyr Sut-Ls Animal Sitter Conn Lng Spin - [id number] Implanted:Qty: 1 on 01/04/2021 by Munir Hilton MD at [facility] N/A: Back [employer]:NEURO 12/10/2022 [id number] / / [id number] Pump It 2.5mm [id number] Flxb Synchromed Ii Rsvr Bk - [id number] Implanted:Qty: 1 on 01/04/2021 by Munir Hilton MD at [facility] N/A: Back [employer]:NEURO 01/02/2022 8637-20 / [id number] / Port Infs 8fr Sarah 1.6x2.6mm [employer] Pwr Inj Lpro Ti Pu-11/29/2023 Implanted:Qty: 1 on 11/29/2023 by Joselito Goodwin MD [facility] [id number] / / [id number] Procedures Procedure Name Priority Date/Time Associated Diagnosis [...] disease without esophagitis PATHOLOGY TISSUE REQUEST Routine 10:59 AM EDT Nausea and vomiting, unspecified vomiting type Gastroesophageal reflux disease without esophagitis INTRAOP AIRWAY PLACEMENT Routine 10:56 AM EDT SALINE LOCK IV STAT [...] pg/mL 02/04/2025 4:31 PM EDT [facility] Folate 6.16 >=4.80 ng/mL 02/04/2025 4:31 PM EDT [facility] Blood VENOUS BLOOD / Unknown Venipuncture / Unknown 02/04/2025 2:03 PM EDT 02/04/2025 2:03 PM EDT Narrative [facility] - 02/04/2025 4:31 PM EDT Ingestion of haroon doses of biotin (>5 mg/day) taken within 8 hours of drawing blood sample can interfere with this immunoassay test. Tacho Echavarria MD CHEMISTRY ORDERABLES Final Result [facility] [address] [facility] , [address] [place] [id number] * (ABNORMAL) CBC WITH DIFF (02/04/2025 2:03 PM EDT) Only the most recent of5 resultswithin the time period is included. WBC 8.1 3.7 - 10.3 x10(3)/mc L 02/04/2025 2:07 PM EDT [facility] RBC 2.95(L) 3.90 - 5.20 x10(6)/mc L 02/04/2025 2:07 PM EDT [facility] Hgb 9.4(L) 11.2 - 15.7 g/dL 02/04/2025 2:07 PM EDT [facility] Hct 28.1(L) 34.0 - 45.0 % 02/04/2025 2:07 PM EDT [facility] MCV 95.3 80.0 - 100.0 fL 02/04/2025 2:07 PM EDT [facility] MCH 31.9 26.0 - 34.0 pg 02/04/2025 2:07 PM EDT [facility] MCHC 33.5 30.7 - 35.5 g/dL 02/04/2025 2:07 PM EDT [facility] RDW 15.0(H) <=14.9 % 02/04/2025 2:07 PM EDT [facility] Platelet 163 155 - 369 x10(3)/mc L 02/04/2025 2:07 PM EDT [facility] MPV 8.8 8.8 - 12.5 fL 02/04/2025 2:07 PM EDT [facility] Neut # Prelim 5.6 1.6 - 6.1 x10(3)/mc L 02/04/2025 2:07 PM EDT [facility] Comment:Preliminary automate d absolute neutrophil count. Value may change if manual differential is indicated. Neut Percent 68.4 % 02/04/2025 2:07 PM EDT [facility] Comment:Neutrophils equals s egs plus bands Imm Gran% 0.2 % 02/04/2025 2:07 PM EDT [facility] Comment:Automated count of m etamyelocytes, myelocytes and promyelocytes. Lymph Percent 23.4 % 02/04/2025 2:07 PM EDT [facility] [place] Percent 5.7 % 02/04/2025 2:07 PM EDT [facility] Eos Percent 2.1 % 02/04/2025 2:07 PM EDT [facility] Baso Percent 0.2 % 02/04/2025 2:07 PM EDT [facility] Neut # 5.6 1.6 - 6.1 x10(3)/mc L 02/04/2025 2:07 PM EDT [facility] Comment:Neutrophils equals s egs plus bands IMMGRAN# 0.0 0.0 - 0.1 x10(3)/mc L 02/04/2025 2:07 PM EDT [facility] Comment:Automated count of m etamyelocytes, myelocytes and promyelocytes. An absolute IG <0.1 is reported as 0.0. Lymph # 1.9 1.2 - 3.9 x10(3)/mc L 02/04/2025 2:07 PM EDT [facility] [place] # 0.5 0.3 - 0.9 x10(3)/mc L 02/04/2025 2:07 PM EDT [facility] Eos# 0.2 0.0 - 0.5 x10(3)/mc L 02/04/2025 2:07 PM EDT [facility] Baso # 0.0 0.0 - 0.1 x10(3)/mc L 02/04/2025 2:07 PM EDT [facility] Blood VENOUS BLOOD / Unknown Venipuncture / Unknown 02/04/2025 2:03 PM EDT 02/04/2025 2:03 PM EDT us Tacho Echavarria MD HEMATOLOGY ORDERABLES Final Result Performing Organization Address City/[facility]/ZIP Co de Phone Number [facility] [address] [place] [address] * IRON+TIBC (02/04/2025 2:02 PM EDT) Only the most recent of2 resultswithin the time period is included. Iron 82 30 - 160 mcg/dL 02/04/2025 2:59 PM EDT [facility] Transferrin 279 200 - 360 mg/dL 02/04/2025 2:59 PM EDT [facility] Transferrin Saturation 21 20 - 50 % 02/04/2025 2:59 PM EDT [facility] TIBC 391 250 - 400 mcg/dL 02/04/2025 2:59 PM EDT [facility] Blood VENOUS BLOOD / Unknown Venipuncture / Unknown 02/04/2025 2:02 PM EDT 02/04/2025 2:02 PM EDT us Tacho Echavarria MD CHEMISTRY ORDERABLES Final Result Performing Organization Address [facility] Co de Phone Number [facility] [address] [place] [address] [facility] [address] [facility], [place] [address] * (ABNORMAL) COMPREHENSIVE METABOLIC PANEL (02/04/2025 2:02 PM EDT) Only the most recent of4 resultswithin the time period is included. Sodium 142 136 - 145 mmol/L 02/04/2025 2:28 PM EDT [facility] Potassium 3.3(L) 3.5 - 5.0 mmol/L 02/04/2025 2:28 PM EDT [facility] Chloride 108(H) 98 - 107 mmol/L 02/04/2025 2:28 PM EDT [facility] Total CO2 19(L) 22 - 29 mmol/L 02/04/2025 2:28 PM EDT [facility] Anion Gap 15 7 - 16 mmol/L 02/04/2025 2:28 PM EDT [facility] Calcium 8.6 8.6 - 10.4 mg/dL 02/04/2025 2:28 PM EDT [facility] Glucose Lvl 134(H) 70 - 99 mg/dL 02/04/2025 2:28 PM EDT [facility] BUN 12 6 - 20 mg/dL 02/04/2025 2:28 PM EDT [facility] Creatinine 0.78 0.51 - 1.30 mg/dL 02/04/2025 2:28 PM EDT [facility] Albumin 3.8 3.5 - 5.2 gm/dL 02/04/2025 2:28 PM EDT [facility] Total Protein 6.0(L) 6.4 - 8.3 gm/dL 02/04/2025 2:28 PM EDT [facility] Bili Total 0.3 0.2 - 1.3 mg/dL 02/04/2025 2:28 PM EDT [facility] ALT 8 <=41 U/L 02/04/2025 2:28 PM EDT [facility] AST 12 <=40 U/L 02/04/2025 2:28 PM EDT [facility] Alk Phos 95 36 - 123 U/L 02/04/2025 2:28 PM EDT [facility] eGFR (CKD-EPIcr 2020) 88 >=60 mL/min/1.7 3 m2 02/04/2025 2:28 PM EDT [facility] Comment:Estimated GFR was ca lculated using the CKD-EPIcr (2020) equation refit without race. The equation is recommended by the National Kidney Foundation - [place] [employer] of Nephrology Task Force. Blood VENOUS BLOOD / Unknown Venipuncture / Unknown 02/04/2025 2:02 PM EDT 02/04/2025 2:02 PM EDT Tacho Echavarria MD CHEMISTRY ORDERABLES Final Result [facility] [address] [place] [address] * MISCELLANEOUS LAB (01/06/2025 1:13 PM EDT) Only the most recent of2 resultswithin the time period is included. Pathologist [facility] COMMENT [place] 01/07/2025 7:35 AM EDT [facility] Blood VENOUS STRUCTURE / Unknown Port / Unknown 01/06/2025 1:13 PM EDT 01/07/2025 7:31 AM EDT Tacoh Echavarria MD HEMATOLOGY ORDERABLES Final Result [facility] [address] [place] [address] * PHARMACOGENOMIC PANEL (01/06/2025) [facility] Pharmacogenomic Lab Comments See Comment [facility] Comment:Hemizygous males and homozygous females are reported as HTR2C CC. Pharmacogenomic Lab Method See Comment [facility] Comment: This test was developed, and its performance characteristics determined by [email or web address], a clinical laboratory located at [address] [place] [address]. These tests have not been cleared or approved by the U.S. Food and Drug Administration. The FDA does not require this test to go through premarket FDA review. [employer] is certified under CLIA-88 and accredited by the College of [place] [employer] as qualified to perform high-complexity testing. This test is approved for clinical use by the [facility] Department of Health. This test should not be regarded as investigational or for research. *Genomic DNA was analyzed by PCR using Thermo Mcclendon TaqMan and/or Bleacher ReportQ probe-based methods to interrogate the variant locations [...] are associated with more than one haplotype, [facility] inf[facility] and reports the most likely [...] Call. *The variant detection methods validated by [facility] provide >99.9% accuracy for the adult population; [...] or pharmacogenomic specialist. For additional support, contact Critical access hospital through the website or by calling [phone]. Blood 01/06/2025 01/22/2025 Narrative [facility] - 01/27/2025 This result has genomic variants that were not included in this document. us Aury ELIZABETH - ORDERABLES Final Result [facility]ARA [address] [place] [id number] [phone] * ESOPHAGOGASTRODUODENOSCOPY (EGD) (12/01/2024 11:06 AM EDT) [...] King Oliva MD Performing Provider Shaylee curtis, SMUDGER LOUIE Martinez, RAUL Telephone Lines Repairer Madelyn Sidhu RN Endoscopy Nurse Aliya Friedman [...] AM EDT) CASE REPORT Surgical Pathology Case: [id number] Authorizing Provider: King Oliva MD Collected: 12/01/2024 1059 Ordering Location: [facility] Received: 12/01/2024 1237 Pathologist: Estefany Spencer MD Specimens: A) - Small Intestine, Duodenum, duodenal biopsies via forceps B) - Gastric, gastric biopsies via forceps C) - Gastroesophageal Junction, gastroesophageal junction biopsies via forceps 12/03/2024 10:48 AM EDT [facility] FINAL DIAGNOSIS A. Duodenal biopsies [...] metaplasia and dysplasia. 12/03/2024 10:48 AM EDT [facility] at 1048 EDT GROSS DESCRIPTION A. Received in formalin, in a container labeled with the patient's name, hospital number, and duodenal biopsies via forceps , are seven sahu soft tissue fragments, 0.2-0.5 cm in greatest dimension. The fragments are entirely submitted in A1. Saima George MS, PA ([facility]) 12/01/2024 B. Received in formalin, in a container labeled with the patient's name, hospital number, and gastric biopsies via forceps , are six sahu soft tissue fragments, 0.3-1.1 cm in greatest dimension. The fragments are entirely submitted in B1. Saima George MS, PA ([facility]) 12/01/2024 C. Received in formalin, in a container labeled with the patient's name, hospital number, and gastroesophageal junction biopsies via forceps , are two sahu soft tissue fragments, both 0.4 cm in greatest dimension. The fragments are entirely submitted in C1. Saima George MS, TREV ([facility]) 12/01/2024 12/03/2024 10:48 AM EDT [facility] MICROSCOPIC DESCRIPTION The microscopic examination may have been rendered in whole, or in part, by analyzing high-resolution digital images (whole slide images) on the [employer] Digital Pathology platform validated at [facility]. 12/03/2024 10:48 AM EDT [facility] EMBEDDED IMAGES 12/03/2024 10:48 AM EDT [facility] Tissue DUODENAL STRUCTURE / Unknown 12/01/2024 10:59 AM EDT 12/01/2024 12:37 PM EDT Tissue specimen (specimen) STOMACH STRUCTURE / Unknown 12/01/2024 11:01 AM EDT 12/01/2024 12:37 PM EDT Tissue specimen (specimen) CARDIOESOPHAGEAL JUNCTION STRUCTURE / Unknown 12/01/2024 11:02 AM EDT 12/01/2024 12:37 PM EDT us King Oliva MD PATHOLOGY ORDERABLES Final Result Performing Organization Address [facility] Co de Phone Number [facility] [address] [place] [address] [place] [address] * INTRAOP AIRWAY PLACEMENT (12/01/2024 10:56 AM EDT) Narrative [facility] - 12/01/2024 10:56 AM EDT Shaylee Thurman CRNA 12/01/2024 10:56 AM Intraop Airway Placement: Date/Time: 12/01/2024 10:56 AM Induction type: IV Airway type: Nasal cannula salter Placement verified: End tidal CO2 us Aliya Friedman MD [place] ANESTHESIA Final Result Performing Organization Address [facility] de Phone Number [facility] [address] [place] [address] * BASIC METABOLIC PANEL (11/21/2024 3:02 PM EDT) Sodium 140 136 - 145 mmol/L 11/21/2024 3:22 PM EDT [facility] Potassium 3.8 3.5 - 5.0 mmol/L 11/21/2024 3:22 PM EDT [facility] Chloride 107 98 - 107 mmol/L 11/21/2024 3:22 PM EDT [facility] Total CO2 23 22 - 29 mmol/L 11/21/2024 3:22 PM EDT [facility] Anion Gap 10 7 - 16 mmol/L 11/21/2024 3:22 PM EDT [facility] Calcium 8.6 8.6 - 10.4 mg/dL 11/21/2024 3:22 PM EDT [facility] Glucose Lvl 98 70 - 99 mg/dL 11/21/2024 3:22 PM EDT [facility] BUN 14 6 - 20 mg/dL 11/21/2024 3:22 PM EDT [facility] Creatinine 0.57 0.51 - 1.30 mg/dL 11/21/2024 3:22 PM EDT [facility] eGFR (CKD-EPIcr 2020) 105 >=60 mL/min/1.7 3 m2 11/21/2024 3:22 PM EDT [facility] Comment:Estimated GFR was ca lculated using the CKD-EPIcr (2020) equation refit without race. The equation is recommended by the National Kidney Foundation - [place] [employer] of Nephrology Task Force. Blood VENOUS BLOOD / Unknown Venipuncture / Unknown 11/21/2024 3:02 PM EDT 11/21/2024 3:05 PM EDT us aSúl Melendez MD CHEMISTRY ORDERABLES Final Resu lt [facility] [address] [place] [address] * MM MAMMO DIGITAL STEPHANE DIAGN RIGHT (01/27/2024 11:20 AM EDT) Anatomical Region Laterality Modality Breast Right Mammography 01/27/2024 12:5 7 PM EDT Impressions 01/27/2024 12:57 PM EDT Incomplete-need additional imaging evaluation ([id number]-3) ~ RECOMMENDATION: Ultrasound of the right breast. [...] the next mammogram, in accordance with the [place] [employer] and the Society of [...] sinceprior. ~ IMPRESSION: Incomplete-need additional imaging evaluation ([id number]-1) ~ RECOMMENDATION: Ultrasound of the right breast. [...] the next mammogram, in accordance with the [place] [employer] and the Society of Breast Imaging recommendations. Jeanette Smith APRN IMG MAMMOGRAPHY ORDERABLES Final Result * GMED COLONOSCOPY (07/12/2015 2:30 PM EST) 07/12/2015 2:30 PM EST Impressions [facility] - 07/12/2015 3:30 PM EST Normal [...] MD GI PROCEDURE ORDERABLES Doris [email or web address] Result [facility] [address] [place] [address] from Last 3 Months or Most Recently Relevant to Health Maintenance Insurance [facility] [id number] [facility] [employer]LL[employer] OF [address] Advance Directives For more information, please contact: [phone] * Full Code (Latest Code Status on File) Date Activated Date Inactivated Comments 05/01/2017 2:57 PM 05/03/2017 5:30 PM Care Teams Utilization Management Um Nurse Relationship Specialty [place] [address] [place] [address] PCP - General 06/21/10 Arlyn Schmidt MD [address] [place] [address] Consulting Physician Internal Medicine-Endocrinology, Diabetes & Metabolism 11/28/20 Tacho Echavarria MD 1 [place] [address] Internal Medicine-Medical Oncology 11/12/23 Matt Ulrich MD 1 [place] [address] Surgery-Surgical Oncology 12/04/23 Eze Brock Pastoral Care 12/13/23 Annette Walker, AUTOMATIC TRANSMISSION MECHANIC Administrative Appeals Tribunal Member 05/13/24 Batool Celis MD 1 [facility] [place] [address] Radiation Oncologist Radiology-Radiation Oncology 06/08/24
--- OUTSIDE RECORDS SUMMARY | 2025-02-19 14:02 | XMS_ITS | Encounter Summary ---
Author Organization [place] [address] Care Team Providers Care Deputy Fire Chief Name Role Phone Chetna Cedeno MD Primary Care Provider [phone] Arlyn Schmidt MD Unavailable [phone] Tacho Echavarria MD Unavailable [phone] Matt Ulrich MD Unavailable [phone] Eze Brock Unavailable Annette Walker DITTO MACHINE OPERATOR Unavailable [phone] Batool Celis MD Unavailable [phone] Encounter Details Date Type Department Care Team (Late st Contact Info) Description 01/29/2025 Social Work [facility] Cancer Care [facility] [place] [address] Sonny Fleming, DITTO MACHINE OPERATOR Social History Tobacco Use Types Packs/Day [...] your doctor or pharmacy? Never 11/07/2023 [facility] Utilities Answer Date Recorded In the past 12 months has th e electric, gas, oil, or water [email or web address] threatened to shut off services in your [...] Total Score 5 07/07/2024 [facility] [place] of Occupat ional Health - Occupational Stress [...] time in the past 12 m [facility], were you homeless or living in a fdc (including now)? No 11/07/2023 [facility] [...] - 01/29/2025 3:12 PM EDT 01/29/25 1511 Filterer Assessment Referred By phone call Disease/[facility] Paper Stacker Assignment Breast cancer Referral Location: [facility] Reason for Referral transportation Identified Needs Adjustment to illness;Transportation Social Work Interventions Transportation;Brief Couseling/Support;Education/Information FARHAD Romo received a call from pt stating that she is in need of a waiver for transportation from her health insurance as she is not feeling well enough to drive to her appointments. BASKET HAND WEAVER followed up with MAGAN Reid to discuss [...] 11:40 AM EDT Office Visit [facility] [address] [place] [address] [place] [address] [place] [address] 03/02/2025 12:45 PM EDT Procedure visit [facility] [address] [place] [address] Samm Ledesma, NUCLEAR PHARMACIST [address] [place] [address] 03/10/2025 12:30 PM EDT Appointment [facility] [place], [place] [id number] 03/10/2025 1:00 PM EDT Appointment Cancer Care Medical Oncology [place], [place] [id number] Tacho Echavarria MD [address] [place] [id number] 04/29/2025 9:15 AM EDT Appointment [facility] [place] [address] Batool Celis MD [address] [place] [address] [place] [address] 05/19/2025 2:15 PM EST Office Visit [address] [address] Sin Tran MD [address] [place] [address] 08/12/2025 10:40 AM EST Appointment [facility] Women's Wellness [facility] [place] [address] Matt Ulrich MD [address] [place] [address] [address] [place] [address] documented as of this encounter Goals Goal [...] documented as of this encounter Care Teams Deputy Fire Chief Relationship Specialty Start [place] [address] [place] [address] PCP - General 06/21/10 Arlyn Schmidt MD [address] [place] [id number] Consulting Physician Internal Medicine-Endocrinology, Diabetes & Metabolism 11/28/20 Tacho Echavarria MD 1 [place] [address] Internal Medicine-Medical Oncology 11/12/23 Matt Ulrich MD 1 [place] [address] Surgery-Surgical Oncology 12/04/23 Eze Brock Pastoral Care 12/13/23 Annette Walker MSW Paper Stacker 05/13/24 Batool Celis MD [address] [place] [address] [place] [address] Radiation Oncologist Radiology-Radiation Oncology 06/08/24 documented as of this encounter
--- OUTSIDE RECORDS SUMMARY | 2025-02-19 14:02 | XMS_ITS | Encounter Summary ---
Author Organization [place] [address] Care Team Providers Care Textile Machine Operator Name Role Phone Chetna Cedeno MD Primary Care Provider [phone] Arlyn Schmidt MD Unavailable [phone] Tacho Echavarria MD Unavailable [phone] Matt Ulrich MD Unavailable [phone] Eze Brock Unavailable Annette Walker Unavailable [phone] Batool Celis MD Unavailable [phone] Reason for Visit * Reason Comments Medication Refill Encounter Details Date Type Department Care Team (Late st Contact Info) Description 01/15/2025 Refill [facility] MERRITT [address] [place] [address] [place] [address] [place] [address] Medication Refill Social History Tobacco [...] in a detention (including now)? No 11/07/2023 [facility] [...] 11:40 AM EDT Office Visit ROMULO Mahm[place] [address] [place] [address] [place] [address] [place] [address] 03/02/2025 12:45 PM EDT Procedure visit [facility] [address] [facility] [address] [place] [address] Samm Ledesma, BUSINESS SYSTEMS MANAGER [address] [place] [address] 03/10/2025 12:30 PM EDT Appointment [place] [address] 03/10/2025 1:00 PM EDT Appointment [facility] [place] [address] Tacho Echavarria MD [address] [place] [address] 04/29/2025 9:15 AM EDT Appointment [facility] [place] [phone] Batool Celis MD [address] [facility] [place] [address] 05/19/2025 2:15 PM EST Office Visit [facility] [address] [place] [address] [address] [facility] [address] [place] [address] Sin Tran MD [address] [place] [address] [place] [address] 08/12/2025 10:40 AM EST Appointment [facility] Women's Wellness [facility] Emilee Solomon [facility] Matt Ulrich MD [address] [facility] [address] [place] [address] documented as of this encounter Goals Goal [...] [place] [address] [place] [phone] PCP - General 06/21/10 Arlyn Schmidt MD [address] [place], [place] [phone] Consulting Physician Internal Medicine-Endocrinology, Diabetes & Metabolism 11/28/20 Tacho Echavarria MD 1 [place] [address] Internal Medicine-Medical Oncology 11/12/23 Matt Ulrich MD 1 [place], [place] [id number] Surgery-Surgical Oncology 12/04/23 Eze Brock Pastoral Care 12/13/23 Annette Walker, FIELD ASSOCIATE Undercover Operator 05/13/24 Batool Celis MD 1 [facility] [address] Radiation Oncologist Radiology-Radiation Oncology 06/08/24 documented as of this encounter
--- OUTSIDE RECORDS SUMMARY | 2025-02-19 14:02 | XMS_ITS | Encounter Summary ---
Author [place] [address] Care Team Providers Care Rn Prior Authorization Name Role Phone Chetna Cedeno MD Primary Care Provider [phone] Arlyn Schmidt MD Unavailable [phone] Tacho Echavarria MD Unavailable [phone] Matt Ulrich MD Unavailable [phone] Eze Brock Unavailable Annette Walker Unavailable [phone] Batool Celis MD Unavailable [phone] Reason for Visit * Reason Comments Oncology Nurse Navigation Encounter Details Date Type Department Care Team (Late st Contact Info) Description 02/10/2025 Patient Outreach [facility] TUMOR BD One [place], [place] [id number] Tacho Echavarria MD [address] [place] [id number] Oncology Nurse Navigation Social History Tobacco Use [...] from your doctor or pharmacy? Never 11/07/2023 [facility] Utilities Answer Date Recorded In [...] in a assisted (including now)? No 11/07/2023 [facility] IP Transportation Answer D ate Recorded In [...] NN asking for a copy (printed for picket [employer]) of the letter that Dr. Echavarria wrote regarding the air conditioner and asked for an update on getting a letter to help with her student loanforgiveness. She is in the area today and is asking if she can come and picket labor union these letters Theletter about the air conditioner looks like it need editing. NN will send message to clinic. Also dora thompson voicemail for Dr. Echavarria's nurse. Onc NN will continue to follow patient. documented in this encounter Plan of Treatment Upcoming Encounters Date Type Department Care Team (Late st Contact Info) Description 03/02/2025 11:40 AM EDT Office Visit [facility] [address] [place] [address] [place] [address] [place] [address] 03/02/2025 12:45 PM EDT Procedure visit [facility] [address] [place] [address] aSmm Ledesma, PHYSICAL THERAPY ASST [address] [address] [place], [place] [phone] 03/10/2025 12:30 PM EDT Appointment [place] [address] 03/10/2025 1:00 PM EDT Appointment [facility] [place] [address] Tacho Echavarria MD [address] [place] [address] 04/29/2025 9:15 AM EDT Appointment [facility] [place] [address] Batool Celis MD [address] [place] [address] [id number] 05/19/2025 2:15 PM EST Office Visit [place] [address] [place] [address] Sin Tran MD [address] [place] [address] 08/12/2025 10:40 AM EST Appointment [facility] Women's Wellness [place] [facility] [place] [address] Matt Ulrich MD [address] [place] [address] [place] [address] documented as of this encounter Goals [...] as of this encounter Care Teams Rn Prior Authorization Relationship Specialty Start [place] [address] [place] [address] PCP - General 06/21/10 Arlyn Schmidt MD [address] [place], [place] [id number] Consulting Physician Internal Medicine-Endocrinology, Diabetes & Metabolism 11/28/20 Tacho Echavarria MD 1 [place], [place] [phone] Internal Medicine-Medical Oncology 11/12/23 Matt Ulrich MD 1 [place], [place] [phone] Surgery-Surgical Oncology 12/04/23 Eze Brock Pastoral Care 12/13/23 Annette Walker, BODY REPAIRER Down Filler 05/13/24 Batool Celis MD 1 [facility]CER [place], [place] [phone] Radiation Oncologist Radiology-Radiation Oncology 06/08/24 documented as of this encounter
--- OUTSIDE RECORDS SUMMARY | 2025-02-19 14:02 | XMS_ITS | Encounter Summary ---
Author Organization [place] [address] Care Team Providers Care Media Relations Associate Name Role Phone Chetna Cedeno MD Primary Care Provider [phone] Arlyn Schmidt MD Unavailable [phone] Tacho Echavarria MD Unavailable [phone] Matt Ulrich MD Unavailable [phone] Eze Brock Unavailable Annette Walker Unavailable [phone] Batool Celis MD Unavailable [phone] Encounter Details Date Type Department Care Team (Late st Contact Info) Description 01/28/2025 Orders Only [facility] Oncology [place], [place] [phone] Tacho Echavarria MD [address] [place] [address] [phone] Invasive ductal carcinoma of breast, female, right [...] 07/07/2024 [facility] [place] of Occupat ional Health - Occupational Stress [...] in a halfway (including now)? No 11/07/2023 [facility] IP Transportation Answer D ate [...] 11:40 AM EDT Office Visit [facility] [address] [place] [address] [place] [address] [place] [address] 03/02/2025 12:45 PM EDT Procedure visit [facility] NEUROLOG[facility]ECT[facility] [address] [place] [address] [phone] Samm Ledesma, DIRECTOR OF AUTOMATION [address] [facility] [facility] [address] [place], [place] [phone] 03/10/2025 12:30 PM EDT Appointment [facility] [place], [place] [phone] 03/10/2025 1:00 PM EDT Appointment [facility] [place], [place] [phone] Tacho Echavarria MD [address] [place] [address] [phone] 04/29/2025 9:15 AM EDT Appointment [facility] RAD ONC [place], [place] 1559317 Batool Celis MD [address] [place] [address] 05/19/2025 2:15 PM EST Office Visit [place] [address] [facility] [address] [place] [address] Sin Tran MD [facility] [place] [address] 08/12/2025 10:40 AM EST Appointment [facility] Women's Wellness [place] [facility] [place] [address] Matt Ulrich MD [address] [place] [address] [address] [place] [address] documented as of this encounter [...] pg/mL 02/04/2025 4:31 PM EDT [facility] [employer] Folate 6.16 >=4.80 ng/mL 02/04/2025 4:31 PM EDT [facility] Blood VENOUS BLOOD / Unknown Venipuncture / Unknown 02/04/2025 2:03 PM EDT 02/04/2025 2:03 PM EDT Narrative [facility] - 02/04/2025 4:31 PM EDT Ingestion of haroon doses of biotin (>5 mg/day) taken within 8 hours of drawing blood sample can interfere with this immunoassay test. Tacho Echavarria MD CHEMISTRY ORDERABLES Final Result [facility] 1 MEDICAL [facility] , [place] [address] * (ABNORMAL) CBC WITH DIFF (02/04/2025 2:03 [...] 369 x10(3)/mc L 02/04/2025 2:07 PM EDT [facility] MPV 8.8 8.8 - 12.5 fL 02/04/2025 2:07 PM EDT [facility] Neut # Prelim 5.6 1.6 [...] 2:07 PM EDT [facility] [place] Percent 5.7 % 02/04/2025 2:07 PM EDT [facility] Eos Percent 2.1 % 02/04/2025 2:07 PM EDT [facility] Baso Percent 0.2 % 02/04/2025 2:07 PM EDT [facility] Neut # 5.6 1.6 [...] 3.9 x10(3)/mc L 02/04/2025 2:07 PM EDT [facility] [place] # 0.5 0.3 - 0.9 x10(3)/mc L 02/04/2025 2:07 PM EDT [facility] Eos# 0.2 0.0 - 0.5 x10(3)/mc L 02/04/2025 2:07 PM EDT [facility] Baso # 0.0 0.0 - 0.1 x10(3)/mc L 02/04/2025 2:07 PM EDT [facility] Blood VENOUS BLOOD / Unknown Venipuncture / Unknown 02/04/2025 2:03 PM EDT 02/04/2025 2:03 PM EDT us Tacho Echavarria MD HEMATOLOGY ORDERABLES Final Result Performing Organization Address [facility]/ZIP Co de Phone Number [facility] [address] [place] [phone] * IRON+TIBC (02/04/2025 2:02 PM EDT) Pathologist [facility] Iron 82 30 - 160 mcg/dL 02/04/2025 2:59 PM EDT [facility] Transferrin 279 200 - 360 mg/dL 02/04/2025 2:59 PM EDT [facility] Saturation 21 20 - 50 % 02/04/2025 2:59 PM EDT [facility] TIBC 391 250 - 400 mcg/dL 02/04/2025 2:59 PM EDT [facility] Blood VENOUS BLOOD / Unknown Venipuncture / Unknown 02/04/2025 2:02 PM EDT 02/04/2025 2:02 PM EDT us Tacho Echavarria MD CHEMISTRY ORDERABLES Final Result Performing Organization Address [facility]/ZIP Co de Phone Number [facility] 1 [place] [address] [facility], [facility] 1 [facility], [place] [address] * (ABNORMAL) COMPREHENSIVE METABOLIC PANEL (02/04/2025 2:02 PM EDT) Pathologist [facility] Sodium 142 136 - 145 mmol/L [...] - 5.2 gm/dL 02/04/2025 2:28 PM EDT [facility] Total Protein 6.0(L) 6.4 - 8.3 gm/dL 02/04/2025 2:28 PM EDT [facility] Bili Total 0.3 0.2 - 1.3 mg/dL 02/04/2025 2:28 PM EDT [facility] ALT 8 <=41 U/L 02/04/2025 2:28 PM EDT [facility] AST 12 <=40 U/L 02/04/2025 2:28 PM EDT [facility] Alk Phos 95 36 - 123 U/L 02/04/2025 2:28 PM EDT [facility] eGFR (CKD-EPIcr 2020) 88 >=60 mL/min/1.7 3 m2 02/04/2025 2:28 PM EDT [facility] Comment:Estimated GFR was ca lculated using the CKD-EPIcr (2020) equation refit without race. The equation is recommended by the National Kidney Foundation - [employer] of Nephrology Task Force. Blood VENOUS BLOOD / Unknown Venipuncture / Unknown 02/04/2025 2:02 PM EDT 02/04/2025 2:02 PM EDT Tacho Echavarria MD CHEMISTRY ORDERABLES Final Result [facility] [address] [place] [phone] documented in this encounter Visit Diagnoses Diagnosis Invasive ductal carcinoma of breast, female, right (HCC)- Primary documented in this encounter Additional Health Concerns Assessment Noted Time PHQ-9 Depression Total Score: 17 024 8:39 AM EST PHQ-2 Depression Total Score: 5 07/07/20 24 8:39 AM EST documented as of this encounter Care Teams Media Relations Associate Relationship Specialty [place] [address] [place] [address] PCP - General 06/21/10 Arlyn Schmidt MD [address] [place], [place] 1778911 Consulting Physician Internal Medicine-Endocrinology, Diabetes & Metabolism 11/28/20 Tacho Echavarria MD 1 [place], [place] [phone] Internal Medicine-Medical Oncology 11/12/23 Matt Ulrich MD 1 [place], [place] 7806217 Surgery-Surgical Oncology 12/04/23 Eze Brock Pastoral Care 12/13/23 Annette Walker, ARACELI Creative Recruiter 05/13/24 Batool Celis MD 1 [facility] [place] [address] Radiation Oncologist Radiology-Radiation Oncology 06/08/24 documented as of this encounter
--- OUTSIDE RECORDS SUMMARY | 2025-02-19 14:02 | XMS_ITS | Encounter Summary ---
Author Organization [place] [address] Care Team Providers Care Intelligence Research Specialist Name Role Phone Chetna Cedeno MD Primary Care Provider [phone] Arlyn Schmidt MD Unavailable [phone] Tacho Echavarria MD Unavailable [phone] Matt Ulrich MD Unavailable [phone] Eze Brock Unavailable Annette Walker Unavailable [phone] Batool Celis MD Unavailable [phone] Encounter Details Date Type Department Care Team (Late st Contact Info) Description 02/10/2025 Orders Only [facility] [address] Shilpa Cline, RN Social History [...] Recorded In the past 12 months has [employer], oil, or water [employer] threatened to shut off services in your [...] [facility] of Occupat ional [facility] - Occupational Stress Questionnaire Answer Date Recorded [...] any time in the past 12 m [facility], were you homeless or living in a mcfp (including now)? No 11/07/2023 [facility] IP Transportation Answer [...] AM EDT Office Visit [facility] [address] [place] [address] [place] [address] [place] [address] 03/02/2025 12:45 PM EDT Procedure visit [facility] NE[facility] [address] [place] [address] Samm Ledesma, MEDICAL SCRIBE [address] [facility] [address] [place] [address] 03/10/2025 12:30 PM EDT Appointment [place] [address] 03/10/2025 1:00 PM EDT Appointment [facility] Medical Oncology [place], [place] [phone] Tacho Echavarria MD [address] [place] [address] 04/29/2025 9:15 AM EDT Appointment [place] [address] Btaool Celis MD [address] [place] [address] CANCER CARE [place], [place] [phone] 05/19/2025 2:15 PM EST Office Visit [place] [address] [place] [address] Sin Tran MD [facility] [place] [phone] 08/12/2025 10:40 AM EST Appointment [facility] Women's Wellness [place] One [facility] [place] [address] Matt Ulrich MD [address] [place] [address] [place] [address] documented as of this encounter Goals Goal Patient Goal Type Associated Problems Recent Progress Patient-Stated? Author Blood Pressure < 140/90 Blood Pressure 121/77(02/04 2:04 PM EDT) No Chetna Cedeno MD Breast [facility] Breast Health On track(2024 11:27 AM EDT) [...] documented as of this encounter Care Teams Intelligence Research Specialist Relationship Specialty [place] [address] [place] [address] PCP - General 06/21/10 Arlyn Schmidt MD [address] [place], [place] 4947[address] Consulting Physician Internal Medicine-Endocrinology, Diabetes & Metabolism 11/28/20 Tacho Echavarria MD 1 [place] [address] Internal Medicine-Medical Oncology 11/12/23 Matt Ulrich MD 1 [place] [address] Surgery-Surgical Oncology 12/04/23 Eze Brock Pastoral Care 12/13/23 Annette Walker, [facility] Aviation Consultant 05/13/24 Batool Celis MD 1 [facility] [address] Radiation Oncologist Radiology-Radiation Oncology 06/08/24 documented as of this encounter
--- OUTSIDE RECORDS SUMMARY | 2025-02-19 14:02 | XMS_ITS | Encounter Summary ---
Author Organization [place] [address] Care Team Providers Care College Administrator Name Role Phone Chetna Cedeno MD Primary Care Provider [phone] Arlyn Schmidt MD Unavailable [phone] Tacho Echavarria MD Unavailable [phone] Matt Ulrich MD Unavailable [phone] Eze Brock Unavailable Annette Walker Unavailable [phone] Batool Celis MD Unavailable [phone] Reason for Visit * Reason [place] Date Comments Medication Refill 02/08/2025 Encounter Details Date Type Department Care Team (Late st Contact Info) Description 02/08/2025 Refill [facility] Oncology [place], [place] [phone] Tacho Echavarria MD [address] [place] [address] [phone] Medication Refill Social History Tobacco Use Types [...] doctor or pharmacy? Never 11/07/2023 [facility] Utilities Answer Date Recorded In [...] in a chcf (including now)? No 11/07/2023 [facility] IP Transportation Answer D [...] 11:40 AM EDT Office Visit [facility] [address] [place] [address] [place] [address] [place] [address] 03/02/2025 12:45 PM EDT Procedure visit [facility] NEUROLOG[facility]ECT[facility] [address] [facility] [address] [place] [address] Samm Ledesma, LEYLA [address] [address] [facility] [address] [place] [address] 03/10/2025 12:30 PM EDT Appointment [place] [address] 03/10/2025 1:00 PM EDT Appointment [facility] [place] [address] Tacho Echavarria MD [address] [place] [address] [phone] 04/29/2025 9:15 AM EDT Appointment [facility] [place] [address] Batool Celis MD [address] [place] [address] [place] [address] 05/19/2025 2:15 PM EST Office Visit [address] [facility] 1D [place] [address] Sin Tran MD [address] [place] [address] 08/12/2025 10:40 AM EST Appointment [facility] Women's Wellness [facility] [place] [address] Matt Ulrich MD [address] [place] [address] 254 [place] [address] documented as of this encounter Goals Goal [...] with any future questions or concerns. Breast [facility] Breast Health Not on track(2024 11:27 [...] documented as of this encounter Care Teams College Administrator Relationship Specialty [place] [address] [place] [address] PCP - General 06/21/10 Arlyn Schmidt MD [address] [place] [address] Consulting Physician Internal Medicine-Endocrinology, Diabetes & Metabolism 11/28/20 Tacho Echavarria MD 1 [place] [phone] Internal Medicine-Medical Oncology 11/12/23 Matt Ulrich MD 1 [place] [phone] Surgery-Surgical Oncology 12/04/23 Eze Brock Pastoral Care 12/13/23 Annette Walker, ROLL GRINDER Senior Data Warehouse Developer 05/13/24 Batool Celis MD 1 [place] [address] Radiation Oncologist Radiology-Radiation Oncology 06/08/24 documented as of this encounter
--- OUTSIDE RECORDS SUMMARY | 2025-02-19 14:02 | XMS_ITS | Clinical Summary ---
Author Organization [facility] Address [address] [place] [address] Phone Care Team Providers Care Fitter'S Assistant Name Role Phone Chetna Cedeno MD Primary Care Provider [phone] Allergies Active Allergy Reactions Criticality Noted Date [...] 01/02/2025 7:27 PM EDT Emergency [facility] Emergency Department [address] [place] [address] Dallin Espinoza MD Heat exhaustion, [...] (ABNORMAL) BAMP (Na,K,Cl,CO2,Glu,BUN,Creat,Ca) (01/02/2025 5:13 PM EDT) [facility] BLD UREA NITROGEN 16 8 - 26 mg/dL [facility] [place] SODIUM 140 135 - 145 mmol/L [facility] [place] POTASSIUM 3.2(L) 3.6 - 5.1 mmol/L [facility] [place] CHLORIDE 107 98 - 111 mmol/L [facility] [place] CO2 20(L) 21 - 31 mmol/L [facility] [place] GLUCOSE, RANDOM 89 70 - 99 mg/dL [facility] [place] CREATININE 1.06 0.60 - 1.20 mg/dL [facility] [place] ANION GAP 13 4 - 16 mmol/L [facility] [place] CALCIUM 9.0 8.5 - 10.4 mg/dL [facility] [place] ESTIMATED GFR 61 >59 mL/min/1.7 3 m2 [facility] [place] Comment: Estimated GFR was calculated using the CKD-EPI cr (2020) equation refit without race. The equation is recommended by the National Kidney Foundation - [place] Society of Nephrology Task Force. Tested at [place] [id number] Whole Blood 01/02/2025 5:13 PM EDT 01/02/2025 5:25 PM EDT Dallin Espinoza MD LAB BLOOD ORDERABLES Final Result [facility] [address] [place] [address] [place] [address] * (ABNORMAL) CBC w/ Diff (01/02/2025 5:13 PM EDT) [facility] WBC 7.1 3.6 - 10.5 THOU/[facility] CHEMISTR[facility] [place] RBC 3.75(L) 3.80 - 5.20 MIL/mcL [facility] [place] HEMOGLOBIN 11.2(L) 12.0 - 15.2 g/dL [facility] [place] HEMATOCRIT 33.6(L) 36 - 46 % [facility] [place] MCV 89.6 82 - 97 fL [facility] [place] MCH 30.0 27 - 33 pg [facility] [place] MCHC 33.5 32 - 36 g/dL [facility] [place] RDW 16.0 12.3 - 17.0 % [facility] [place] PLATELET 206 140 - 375 THOU/mcL [facility] [place] MPV 6.9(L) 7.0 - 11.5 fL [facility] [place] ABS. NEUTROPHIL 3.60 1.80 - 7.70 THOU/mcL [facility] [place] ABS LYMPHS 3.00 1.00 - 4.00 THOU/mcL [facility] [place] ABS MONOS 0.30 0.20 - 0.90 THOU/mcL [facility] [place] ABS EOS 0.10 0.03 - 0.45 THOU/mcL [facility] [place] ABS BASOS 0.10 0.00 - 0.20 THOU/mcL [facility] [place] SEGS 51 % [facility] [place] LYMPHOCYTES 43 % CHEMISTR Y [place] MONOCYTES 4 % [facility] [place] EOSINOPHIL 1 % [facility] [place] BASOPHILS 1 % [facility] [place] Comment:Tested at [facility] [address] [facility] [address] Whole Blood 01/02/2025 5:13 PM EDT 01/02/2025 5:25 PM EDT us Dallin Espinoza MD LAB BLOOD ORDERABLES Final Result [facility] [address] [place] [address] [facility] [address] [place] [address] * ECG 12 lead (01/02/2025 4:37 PM [...] QTcF 417 ms TH TRACEMASTER QRS Horizontal [place] -19 deg TH TRACEMASTER QRS AXIS 16 deg TH TRACEMASTER I-40 Horizontal [place] 46 deg TH TRACEMASTER I-40 FRONT AXIS -17 deg TH TRACEMASTER T-40 Horizontal [place] -50 deg TH TRACEMASTER T-40 Front [place] 51 deg TH TRACEMASTER T Horizontal [place] 52 deg TH TRACEMASTER T WAVE AXIS 16 deg TH TRACEMASTER S-T Horizontal [place] 60 deg TH TRACEMASTER S-T Front [place] 24 deg TH TRACEMASTER ECG IMPRESSION - BORDERLINE ECG - TH TRACEMASTER ECG IMPRESSION SR-Sinus rhythm-normal P axis, V-rate 50-99 TH TRACEMASTER ECG IMPRESSION LVHVP-Probable left ventricular hypertrophy-mul tiple LVH criteria TH TRACEMASTER ECGGUID [id number] TH TRACEMASTER 01/02/2025 4:37 PM EDT us Dallin Espinoza MD ECG ORDERABLES Final Resu lt TH TRACEMASTER from Last 3 Months Insurance [facility] MEDICAID Care Teams Fitter'S Assistant Relationship Specialty Start Date End Date Chetna Cedeno MD [facility] [address] [place] [address] PCP - General Family Medicine 01/02/25
--- OUTSIDE RECORDS SUMMARY | 2025-02-19 14:02 | XMS_ITS | Encounter Summary ---
Author [place] [address] Care Team Providers Care Psychodramatist Name Role Phone Chetna Cedeno MD Primary Care Provider [phone] Arlyn Schmidt MD Unavailable [phone] Tacho Echavarria MD Unavailable [phone] Matt Ulrich MD Unavailable [phone] Eze Brock Unavailable Annette Walker Unavailable [phone] Batool Celis MD Unavailable [phone] Encounter Details Date Type Department Care Team (Late st Contact Info) Description 01/18/2025 Telephone [facility] Care Medical Oncology [place], [place] [phone] Tacho Echavarria MD [address] [place] [address] [id number] Social History Tobacco Use Types Packs/Day Years [...] your doctor or pharmacy? Never 11/07/2023 [facility] Utilities Answer Date Recorded In [...] Total Score 5 07/07/2024 [facility] [place] of Occupat ional Health - Occupational Stress [...] in a jail (including now)? No 11/07/2023 [facility] [...] her apartment. Letter created and sent through [employer] documented in this encounter Plan of Treatment Upcoming Encounters Date Type Department Care Team (Late st Contact Info) Description 03/02/2025 11:40 AM EDT Office Visit ROMULO MERRITT [address] [place] [address] [place] [address] [place] [address] 03/02/2025 12:45 PM EDT Procedure visit [facility] [address] [place] [address] Samm Ledesma APRN [address] [facility] [address] [facility] [address] [place] [address] 03/10/2025 12:30 PM EDT Appointment [place] [address] 03/10/2025 1:00 PM EDT Appointment [place] [address] Tacho Echavarria MD 1 [place] [address] 04/29/2025 9:15 AM EDT Appointment [facility] [place] [address] Batool Celis MD [address] [facility] [place] [address] 05/19/2025 2:15 PM EST Office Visit [facility] [address] [place] [address] [address] [place] [address] Sin Tran MD [address] [place] [address] 08/12/2025 10:40 AM EST Appointment [facility] Women's Wellness [place] [address] Matt Ulrich MD 20 [facility] [address] [place] [address] documented as of this encounter Goals Goal [...] documented as of this encounter Care Teams Psychodramatist Relationship Specialty [place] [address] [place] [address] PCP - General 06/21/10 Arlyn Schmidt MD [facility] [address] [place], [place] [phone] Consulting Physician Internal Medicine-Endocrinology, Diabetes & Metabolism 11/28/20 Tacho Echavarria MD [address] [place] [address] Internal Medicine-Medical Oncology 11/12/23 Matt Ulrich MD [address] [place] [address] Surgery-Surgical Oncology 12/04/23 Eze Brock Pastoral Care 12/13/23 Annette Walker MSW Enrollment Eligibility Representative 05/13/24 Batool Celis MD [address] [place] [address] [place] [address] Radiation Oncologist Radiology-Radiation Oncology 06/08/24 documented as of this encounter
--- OUTSIDE RECORDS SUMMARY | 2025-02-19 14:02 | XMS_ITS | Encounter Summary ---
Author Organization [place] [address] Care Team Providers Care Geophysical Operator Name Role Phone Chetna Cedeno MD Primary Care Provider [phone] Arlyn Schmidt MD Unavailable [phone] Tacho Echavarria MD Unavailable [phone] Matt Ulrich MD Unavailable [phone] Eze Brock Unavailable Annette Walker Unavailable [phone] Batool Celis MD Unavailable [phone] Reason for Visit * Reason Comments Medication Refill Encounter Details Date Type Department Care Team (Late st Contact Info) Description 01/15/2025 Refill [facility] [address] [place] [address] Samm Ledesma, GAS METER INSTALLER HELPER [address] [facility] [facility] [address] [place] [address] Medication Refill Social History Tobacco Use Types [...] in a penitentiary (including now)? No 11/07/2023 [facility] IP [...] 11:40 AM EDT Office Visit ROMULO Mahmood [address] [place] [address] [place] [address] [place] [address] 03/02/2025 12:45 PM EDT Procedure visit [facility] [address] [place] [address] Samm Ledesma APRN [address] [facility] [facility] [address] [place] [address] 03/10/2025 12:30 PM EDT Appointment [facility] [place], [place] [phone] 03/10/2025 1:00 PM EDT Appointment [facility] [place] [address] Tacho Echavarria MD [address] [place] [address] 04/29/2025 9:15 AM EDT Appointment [facility] RAD ONC [place], [place] [phone] Batool Celis MD [address] [place] [address] [place] [address] 05/19/2025 2:15 PM EST Office Visit [address] [address] Sin Tran MD [address] [place] [address] 08/12/2025 10:40 AM EST Appointment [facility] Women's Wellness [facility] [address] Matt Ulrich MD [address] [place] [address] documented as of this encounter Goals Goal [...] maintain an ideal body weight General Sanam Chapmion MA documented as of this encounter Visit Diagnoses Diagnosis Chronic migraine without aura, intractable, with status migrainosus- Primary documented in this encounter Additional Health Concerns Assessment Noted Time PHQ-9 Depression Total Score: 17 024 8:39 AM EST PHQ-2 Depression Total Score: 5 07/07/20 24 8:39 AM EST documented as of this encounter Care Teams Geophysical Operator Relationship Specialty [place] [address] [place] [address] PCP - General 06/21/10 Arlyn Schmidt MD [address] [place] [address] Consulting Physician Internal Medicine-Endocrinology, Diabetes & Metabolism 11/28/20 Tacho Echavarria MD 1 [place], [place] 5948617 Internal Medicine-Medical Oncology 11/12/23 Matt Ulrich MD 1 [place] [address] Surgery-Surgical Oncology 12/04/23 Eze Brock Pastoral Care 12/13/23 Annette Walker MSW Dog Catcher 05/13/24 Batool Celis MD 1 [facility] [place] [address] Radiation Oncologist Radiology-Radiation Oncology 06/08/24 documented as of this encounter
--- OUTSIDE RECORDS SUMMARY | 2025-02-19 14:02 | XMS_ITS | Encounter Summary ---
Author Organization [place] [address] Care Team Providers Care Electrician Control Equipment Name Role Phone Chetna Cedeno MD Primary Care Provider [phone] Arlyn Schmidt MD Unavailable [phone] Tacho Echavarria MD Unavailable [phone] Matt Ulrich MD Unavailable [phone] Eze Brock Unavailable Annette Walker Unavailable [phone] Batool Celis MD Unavailable [phone] Reason for Visit * Reason Onset Date Comments Symptom Call 01/29/2025 Diarrhea, body a ches, vomiting Encounter Details Date Type Department Care Team (Late st Contact Info) Description 01/29/2025 Telephone [facility] Care Medical Oncology [place], [place] [phone] Tacho Echavarria MD [address] [place] [address] [id number] Symptom Call (Diarrhea, body aches, vomiting) Social [...] Total Score 5 07/07/2024 [facility] [place] of Occupat ional Health - Occupational Stress [...] in a halfway (including now)? No 11/07/2023 [facility] IP [...] can make it all the way to [facility] without being sick. She will call [...] the Patient seen at:[facility] Preferred call back number:[phone] RN is aware documented in this encounter Plan of Treatment Upcoming Encounters Date Type Department Care Team (Late st Contact Info) Description 03/02/2025 11:40 AM EDT Office Visit [facility] [address] [place] [address] [place] [address] [place] [address] 03/02/2025 12:45 PM EDT Procedure visit [facility] [address] [place] [address] Samm Ledesma APRN [address] [facility] [address] [place] [address] 03/10/2025 12:30 PM EDT Appointment [facility] [place], [place] [phone] 03/10/2025 1:00 PM EDT Appointment [facility] Medical Oncology [place], [place] 1039717 Tacho Echavarria MD [address] [place] [address] 04/29/2025 9:15 AM EDT Appointment [facility] RAD ONC [place] [phone] Batool Celis MD 1 [facility] [place] [address] 05/19/2025 2:15 PM EST Office Visit [facility] [address] [place] [address] [address] [place] [address] Sin Tran MD [address] [place] [address] 08/12/2025 10:40 AM EST Appointment [facility] Women's Wellness [place] One [facility] [place] [address] Matt Ulrich MD 20 [facility] 254 [place] [phone] documented as of this encounter Goals Goal [...] documented as of this encounter Care Teams Electrician Control Equipment Relationship Specialty [place] [address] [place] [address] PCP - General 06/21/10 Arlyn Schmidt MD [address] [place], [place] 79607[address] Consulting Physician Internal Medicine-Endocrinology, Diabetes & Metabolism 11/28/20 Tacho Echavarria MD 1 [place], [place] 3670317 Internal Medicine-Medical Oncology 11/12/23 Matt Ulrich MD 1 [place] [address] Surgery-Surgical Oncology 12/04/23 Eze Brock Pastoral Care 12/13/23 Annette Walker MSW Roofing Supervisor 05/13/24 Batool Celis MD 1 [facility] [place] [address] Radiation Oncologist Radiology-Radiation Oncology 06/08/24 documented as of this encounter
--- OUTSIDE RECORDS SUMMARY | 2025-02-19 14:02 | XMS_ITS | Clinical Summary ---
Author Organization [facility] Address [address] [place] [address] Phone Care Team Providers Care Hedge Fund Manager Name Role Phone Outside, Provider Unavailable [phone] Conditions or Problems No information available. Medications No information available. Medications Administered No information available. Allergies, Adverse Reactions, Alerts No information available. Results No information available. Plan of Care No information available. Procedures No information available. Vital Signs No information available. Immunizations No information available. Advance Directives No information available.
--- OUTSIDE RECORDS SUMMARY | 2025-02-19 14:02 | XMS_ITS | Encounter Summary ---
Author Organization [place] [address] Care Team Providers Care Pediatric Physical Therapist Name Role Phone Chetna Cedeno MD Primary Care Provider [phone] Arlyn Schmidt MD Unavailable [phone] Tacho Echavarria MD Unavailable [phone] Matt Ulrich MD Unavailable [phone] Eze Brock Unavailable Annette Walker Unavailable [phone] Batool Celis MD Unavailable [phone] Reason for Visit * Reason Onset Date Comments Patient Question 01/28/2025 question about test result Encounter Details Date Type Department Care Team (Late st Contact Info) Description 01/28/2025 Telephone [facility] Care Medical Oncology [place], [place] 7504817 Tacho Echavarria MD [address] [place] [address] [id number] Patient Question (question about test result ) [...] doctor or pharmacy? Never 11/07/2023 [facility] Utilities Answer Date Recorded In the past [...] Date Recorded PHQ-2 Total Score 5 07/07/2024 [facility] of Occupat ional Health - Occupational [...] any time in the past 12 m [facility], were you homeless or living in a long term (including now)? No 11/07/2023 [facility] IP Transportation Answer D [...] results are in and forwarded to . skyrockit message sent to patient, no need to move appt up sooner at this time. * Telephone Encounter - Sendy Waddell NA - 01/28/2025 10:43 AM EDT Reason for call: Patient [facility], said it was something to do withDNA and what medications to take. Said she was unable to read results and was calling to see if anything needed to be done or if she was ok to wait until her appt. Preferred call back number: [phone] documented in this encounter Plan of Treatment Upcoming Encounters Date Type Department Care Team (Late st Contact Info) Description 03/02/2025 11:40 AM EDT Office Visit [facility] MERRITT [address] [place] [address] [place] [address] [place] [address] 03/02/2025 12:45 PM EDT Procedure visit [facility] [address] [place] [address] Samm Ledesma, SCOUTS [address] [facility] 100 [place] [address] 03/10/2025 12:30 PM EDT Appointment [facility] [place], [place] [phone] 03/10/2025 1:00 PM EDT Appointment [place] [address] Tacho Echavarria MD [address] [place] [address] [phone] 04/29/2025 9:15 AM EDT Appointment [facility] RAD ONC [place], [place] [phone] Batool Celis MD [address] [place] [address] 05/19/2025 2:15 PM EST Office Visit [address] [address] Sin Tran MD [address] [place] [address] 08/12/2025 10:40 AM EST Appointment [facility] Women's Wellness [facility] [place] [address] Matt Ulrich MD [address] [place] [address] documented as of this encounter Goals Goal [...] documented as of this encounter Care Teams Pediatric Physical Therapist Relationship Specialty [place] [address] [place] [address] PCP - General 06/21/10 Arlyn Schmidt MD [address] [place] [address] Consulting Physician Internal Medicine-Endocrinology, Diabetes & Metabolism 11/28/20 Tacho Echavarria MD 1 [place] [address] Internal Medicine-Medical Oncology 11/12/23 Matt Ulrich MD 1 [place] [address] Surgery-Surgical Oncology 12/04/23 Eze Brock Pastoral Care 12/13/23 Annette Walker MSW Principal Network Architect 05/13/24 Batool Celis MD [address] [place] [address] [place] [address] Radiation Oncologist Radiology-Radiation Oncology 06/08/24 documented as of this encounter
--- OUTSIDE RECORDS SUMMARY | 2025-02-19 14:02 | XMS_ITS | Encounter Summary ---
Author Organization [place] [address] Care Team Providers Care Training Coordinator Name Role Phone Chetna Cedeno MD Primary Care Provider [phone] Arlyn Schmidt MD Unavailable [phone] Tacho Echavarria MD Unavailable [phone] Matt Ulrich MD Unavailable [phone] Eze Brock Unavailable Annette Walker Unavailable [phone] Batool Celis MD Unavailable [phone] Reason for Visit * Reason Comments Oncology Nurse Navigation Encounter Details Date Type Department Care Team (Late st Contact Info) Description 01/29/2025 Patient Outreach [facility] [address] [place], [place] [phone] Shilpa Cline, RN Oncology Nurse Navigation Social [...] th e electric, gas, oil, or water [employer] threatened to shut off services in [...] Date Recorded PHQ-2 Total Score 5 07/07/2024 [facility] [place] of Occupat ional Health - Occupational Stress [...] in a mcc (including now)? No 11/07/2023 [facility] IP Transportation Answer D [...] 11:40 AM EDT Office Visit [facility]ULO MERRITT [address] [place] [address] [place] [address] [place] [address] 03/02/2025 12:45 PM EDT Procedure visit [facility] [address] [place] [address] Samm Ledesma APRN [address] [facility] [address] [place] [address] 03/10/2025 12:30 PM EDT Appointment [place] [address] 03/10/2025 1:00 PM EDT Appointment [facility] [place] [address] Tacho Echavarria MD [address] [place] [address] 04/29/2025 9:15 AM EDT Appointment [facility] [place] [address] Batool Celis MD 1 [facility] [place] [address] 05/19/2025 2:15 PM EST Office Visit [facility] [address] [place] [address] [facility] 1D [place] [address] Sin Tran MD [address] [place] [address] 08/12/2025 10:40 AM EST Appointment [facility] Women's Wellness [facility] [place] [address] Matt Ulirch MD [address] [place] [address] 254 [place] [address] documented as of this encounter Goals Goal [...] documented as of this encounter Care Teams Training Coordinator Relationship Specialty [place] [address] [place] [address] PCP - General 06/21/10 Arlyn Schmidt MD [address] [place] [address] Consulting Physician Internal Medicine-Endocrinology, Diabetes & Metabolism 11/28/20 Tacho Echavarria MD 1 [place], [place] 0007217 Internal Medicine-Medical Oncology 11/12/23 Matt Ulrich MD 1 [place] [address] Surgery-Surgical Oncology 12/04/23 Eze Brock Pastoral Care 12/13/23 Annette Walker MSW Wafer Production Worker 05/13/24 Batool Celis MD 1 [facility] [place] [address] Radiation Oncologist Radiology-Radiation Oncology 06/08/24 documented as of this encounter
--- OUTSIDE RECORDS SUMMARY | 2025-02-19 14:02 | XMS_ITS | Encounter Summary ---
Author Organization [place] [address] Care Team Providers Care Switchboard Wire Worker Helper Name Role Phone Chetna Cedeno MD Primary Care Provider [phone] Arlyn Schmidt MD Unavailable [phone] Tacho Echavarria MD Unavailable [phone] Matt Ulrich MD Unavailable [phone] Eze Brock Unavailable Annette Walker Unavailable [phone] Batool Celis MD Unavailable [phone] Reason for Referral * Genetic Lab Test (Routine) - Authorization Not Needed Specialty Diagnoses / Procedures Referred By Contac t Referred To Contact Lab Diagnoses 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 Never 11/07/2023 [facility] Utilities Answer Date Recorded In [...] Recorded PHQ-2 Total Score 5 07/07/2024 [facility] [place] of Occupat ional Health - Occupational [...] in a prison (including now)? No 11/07/2023 [facility] IP Transportation Answer D ate [...] 11:40 AM EDT Office Visit [facility] Mahmood [address] [place] [address] [place] [address] [place] [address] 03/02/2025 12:45 PM EDT Procedure visit [facility] [address] [place] [address] Samm Ledesma, [place] [address] [facility] [address] [place] [address] 03/10/2025 12:30 PM EDT Appointment [place] [address] 03/10/2025 1:00 PM EDT Appointment Cancer Care Medical Oncology [place], [place] [phone] Tacho Echavarria MD [address] [place] [phone] 04/29/2025 9:15 AM EDT Appointment [facility] [place] [address] Batool Celis MD [address] [facility] [place] [address] 05/19/2025 2:15 PM EST Office Visit [facility] [address] [place] [address] Sin Tran MD [address] [place] [address] 08/12/2025 10:[address] [facility] Women's Wellness [place] One [facility] [place] [address] Matt Ulrich MD 20 [place] [address] documented as of this encounter Goals Goal [...] developed, and its performance characteristics determined by [facility], a clinical laboratory located at [address] [place] [address]. These tests have not been cleared or approved by the U.S. Food and Drug Administration. The FDA does not require this test to go through premarket FDA review. [facility] is certified under CLIA-88 and accredited by the [employer] as qualified to perform high-complexity testing. This test is approved for clinical use by the [facility] Department of [facility]. This test should not be regarded as investigational or for research. *Genomic DNA was analyzed by PCR using [employer] TaqMan and/or [employer] BHQ probe-based methods to interrogate the variant [...] are associated with more than one haplotype, [facility] infers and reports the most likely diplotype [...] Clara through the website or by calling [phone]. Blood 01/06/2025 01/22/2025 Narrative [facility] - 01/27/2025 This result has genomic variants that were not included in this document. 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)- Primary documented in this encounter Additional Health Concerns Assessment Noted Time PHQ-9 Depression Total Score: 17 024 8:39 AM EST PHQ-2 Depression Total Score: 5 07/07/20 24 8:39 AM EST documented as of this encounter Care Teams Switchboard Wire Worker Helper Relationship Specialty Start [place] [address] [place] [address] PCP - General 06/21/10 Arlyn Schmidt MD [address] [place] [address] Consulting Physician Internal Medicine-Endocrinology, Diabetes & Metabolism 11/28/20 Tacho Echavarria MD 1 [place] [phone] Internal Medicine-Medical Oncology 11/12/23 Matt Ulrich MD 1 [place] [phone] Surgery-Surgical Oncology 12/04/23 Eze Brock Pastoral Care 12/13/23 Annette Walker, WHEEL LOADER OPERATOR Admin Prog Coord 05/13/24 Batool Celis MD 1 [facility] [address] Radiation Oncologist Radiology-Radiation Oncology 06/08/24 documented as of this encounter
--- OUTSIDE RECORDS SUMMARY | 2025-02-19 14:02 | XMS_ITS | Encounter Summary ---
Author Organization [place] [address] Care Team Providers Care White Shoe Examiner Name Role Phone Chetna Cedeno MD Primary Care Provider [phone] Arlyn Schmidt MD Unavailable [phone] Tacho Echavarria MD Unavailable [phone] Matt Ulrich MD Unavailable [phone] Eze Brock Unavailable Annette Walker Unavailable [phone] Batool Celis MD Unavailable [phone] Encounter Details Date Type Department Care Team (Latest Contact Info) Description 01/27/2025 Results Follow-Up [facility] 1 [place] [address] Benito Snell, PharmD PHARMACOGENOMIC PANEL [...] from your doctor or pharmacy? Never 11/07/2023 [facility] Utilities Answer Date Recorded In the [...] 07/07/2024 [facility] of Occupat ional [facility] - Occupational Stress Questionnaire Answer Date [...] in a halfway (including now)? No 11/07/2023 [facility] IP Transportation Answer D ate [...] AM EDT Office Visit [facility] [place] [facility] [address] [place] [address] [place] [address] [place] [address] 03/02/2025 12:45 PM EDT Procedure visit [facility] [address] [facility] [address] [place] [address] Samm Ledesma, EXOTIC DANCER [address] [place], [place] [id number] 03/10/2025 12:30 PM EDT Appointment [place] [address] 03/10/2025 1:00 PM EDT Appointment [facility] Care Medical Oncology [place], [place] [id number] Tacho Echavarria MD [address] [place] [address] [id number] 04/29/2025 9:15 AM EDT Appointment [facility] [address] Batool Celis MD [address] [place] [address] CANCER CARE [place] [id number] 05/19/2025 2:15 PM EST Office Visit [address] [place] [address] Sin Tran MD [address] [place] [address], [place] [address] 08/12/2025 10:40 AM EST Appointment [facility] Women[facility] [place] One [facility] Emilee [place] [address] Matt Ulrich MD [address] [facility] [address] MUSA Hameed [place] [address] documented as of this [...] Diagnoses Diagnosis CYP2B6 intermediate metabolizer (HCC)- Primary [id number] rapid metabolizer (HCC) 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 hypercoagulable state documented in this encounter Additional Health Concerns Assessment Noted Time PHQ-9 Depression Total Score: 17 024 8:39 AM EST PHQ-2 Depression Total Score: 5 07/07/20 24 8:39 AM EST documented as of this encounter Care Teams White Shoe Examiner Relationship Specialty [place] [address] [place] [phone] PCP - General 06/21/10 Arlyn Schmidt MD [address] [place] [address] Consulting Physician Internal Medicine-Endocrinology, Diabetes & Metabolism 11/28/20 Tacho Echavarria MD 1 [place], [place] [id number] Internal Medicine-Medical Oncology 11/12/23 Matt Ulrich MD 1 [place], [place] [id number] Surgery-Surgical Oncology 12/04/23 Eze Brock Pastoral Care 12/13/23 Annette Walker, SEAT INSTALLER Print Washer 05/13/24 Batool Celis MD 1 [facility] [place] [address] Radiation Oncologist Radiology-Radiation Oncology 06/08/24 documented as of this encounter
--- OUTSIDE RECORDS SUMMARY | 2025-02-19 14:02 | XMS_ITS | Encounter Summary ---
Author Organization [place] [address] Care Team Providers Care Prism Inspector Name Role Phone Chetna Cedeno MD Primary Care Provider [phone] Arlyn Schmidt MD Unavailable [phone] Tacho Echavarria MD Unavailable [phone] Matt Ulrich MD Unavailable [phone] Eze Brock Unavailable Annette Walker Unavailable [phone] Batool Celis MD Unavailable [phone] Reason for Visit * Reason Comments Pharmacy Migraine Medication Management Qulipta Encounter Details Date Type Department Care Team (Latest Contact Info) Description 01/28/2025 Specialty Pharmacy [facility] [address] [place] [address] Sheridan Arellano CPhT Pharmacy Migraine [...] th e electric, gas, oil, or water [employer] threatened to shut off services in your [...] Total Score 5 07/07/2024 [facility] [place] of Occupat ional Health - Occupational Stress [...] in a custodial (including now)? No 11/07/2023 [facility] IP Transportation Answer [...] refills of Qulipta. Copay amount: $0 Sent IRL Connect message. Patient informed of copay. * Aaliyah [...] AM EDT Office Visit [facility] [place] [address] [place] [address] [place] [address] [place] [address] 03/02/2025 12:45 PM EDT Procedure visit [facility] [address] [place] [address] Samm Ledesma APRN [address] [facility] [facility] [address] [place] [address] 03/10/2025 12:30 PM EDT Appointment [place] [address] 03/10/2025 1:00 PM EDT Appointment [facility] [place] [address] Tacho Echavarria MD [address] [place] [address] 04/29/2025 9:15 AM EDT Appointment [place] [address] Batool Celis MD [address] [place] [address] [place] [address] 05/19/2025 2:15 PM EST Office Visit [address] [address] Sin Tran MD [address] [place] [address] 08/12/2025 10:40 AM EST Appointment [facility] [place] [address] Matt Ulrich MD [address] [place] [address] 254 [place] [address] documented as of this encounter Goals Goal [...] documented as of this encounter Care Teams Prism Inspector Relationship Specialty [place] [address] [place] [address] PCP - General 06/21/10 Arlyn Schmidt MD [address] [place] [address] Consulting Physician Internal Medicine-Endocrinology, Diabetes & Metabolism 11/28/20 Tacho Echavarria MD 1 [place] [address] Internal Medicine-Medical Oncology 11/12/23 Matt Ulrich MD 1 [place] [address] Surgery-Surgical Oncology 12/04/23 Eze Brock Pastoral Care 12/13/23 Annette Walker MSW Computer Laboratory Technician 05/13/24 Batool Celis MD 1 [facility] [place] [address] Radiation Oncologist Radiology-Radiation Oncology 06/08/24 documented as of this encounter
--- OUTSIDE RECORDS SUMMARY | 2025-02-19 14:03 | XMS_ITS | Encounter Summary ---
Author Organization [place] [address] Care Team Providers Care Explosives Operator Name Role Phone Chetna Cedeno MD Primary Care Provider [phone] Arlyn Scmhidt MD Unavailable [phone] Tacho Echavarria MD Unavailable [phone] Matt Ulrich MD Unavailable [phone] Eze Brock Unavailable Annette Walker STEAM CLOTHES PRESS OPERATOR Unavailable [phone] Batool Celis MD Unavailable [phone] Encounter Details Date Type Department Care Team (Late st Contact Info) Description 02/01/2025 Social Work [facility] Cancer Care [facility] [place] [address] Sonny Fleming, STEAM CLOTHES PRESS OPERATOR Social History Tobacco Use Types Packs/Day [...] th e electric, gas, oil, or water [employer] threatened to shut off services in your [...] 07/07/2024 [facility] [place] of Occupat ional Health - Occupational Stress [...] (including now)? No 11/07/2023 [facility] IP Transportation Answer [...] - 02/01/2025 3:04 PM EDT 02/01/25 1504 Bark Grinder Assessment Referred By Pt. Call Disease/[place] Cork Mixer Assignment Breast cancer Referral Location: [facility] [...] 11:40 AM EDT Office Visit [facility] [place] [address] [place] [address] [place] [address] [place] [address] 03/02/2025 12:45 PM EDT Procedure visit [facility] [address] [facility] [address] [place] [address] Samm Ledesma, SUPERVISOR COMPOSING ROOM [address] [facility] [facility] [address] [place] [address] 03/10/2025 12:30 PM EDT Appointment [facility] [place], [place] [id number] 03/10/2025 1:00 PM EDT Appointment [facility] [place] [address] Tacho Echavarria MD [address] [place] [id number] 04/29/2025 9:15 AM EDT Appointment [facility] [address] Batool Celis MD [address] [place] [address] [place] [address] 05/19/2025 2:15 PM EST Office Visit [address] [address] Sin Tran MD [address] [place] [address] 08/12/2025 10:40 AM EST Appointment [facility] Women's Wellness [facility] [place] [address] Matt Ulrich MD [address] [place], [place] [id number] documented as of this encounter Goals Goal [...] documented as of this encounter Care Teams Explosives Operator Relationship Specialty [place] [address] [place] [address] PCP - General 06/21/10 Arlyn Schmidt MD [address] [place] [address] Consulting Physician Internal Medicine-Endocrinology, Diabetes & Metabolism 11/28/20 Tacho Echavarria MD 1 [place] [address] Internal Medicine-Medical Oncology 11/12/23 Matt Ulrich MD 1 [place], [place] 5182217 Surgery-Surgical Oncology 12/04/23 Eze Brock Pastoral Care 12/13/23 Annette Walker MSW Cork Mixer 05/13/24 Batool Celis MD 1 [facility] CANCER [place], [place] [address] Radiation Oncologist Radiology-Radiation Oncology 06/08/24 documented as of this encounter
--- OUTSIDE RECORDS SUMMARY | 2025-02-19 14:03 | XMS_ITS | Encounter Summary ---
Author Organization [place] [address] Care Team Providers Care Steam Boiler Fireman Name Role Phone Kit Cedeno MD Primary Care Provider [phone] Arlyn Schmidt MD Unavailable [phone] Cheryl Nair RN Unavailable [phone] Tacho Echavarria MD Unavailable [phone] Matt Ulrich MD Unavailable [phone] Hilary Clemens RN Unavailable Unavaila Eze Caro Unavailable Shila Albrecht RN Unavailable Unavail able Cheyanne To RN Unavailable Unavailabl Rayna Wong RN Unavailable Unavailab Shilpa Olivarez RN Unavailable [phone] Tulio Duong RN Unavailable Unavailable Yaquelin Weaver RN Unavailable Unavailable Pam Wang RN Unavailable Unavailable Jazmín Nair RN Unavailable Unavailable Fidel Rainey RN Unavailable Unavailable Cheryl Nair RN Unavailable [phone] Ophelia Lala RN Unavailable Glo Lee RN Unavailable Unavailab Sanam Evans VEHICLE MECHANIC Unavailable Unavailable Hilary Clemens RN Unavailable Unavaila Ruthy Clayton RN Unavailable Unavailable Rayna Partida RN Unavailable Unavailab Artur Nelson RN Unavailable Unavailable Annette Walker VEHICLE MECHANIC Unavailable [phone] Emmie Crain RN Unavailable Unavailable Brigida Enriquez RN Unavailable Unavailable Fidel Rainey RN Unavailable Unavailable Batool Celis MD Unavailable [phone] Encounter Details Date Type Department Care Team (Late st Contact Info) Description 10/25/2023 Orders Only [facility] [place] [place] [address] Diane Ellis MD 1 [place] [address] Social History Tobacco Use Types [...] 11:40 AM EDT Office Visit [facility] [place] [address] [place] [address] [place] [address] [place] [address] 03/02/2025 12:45 PM EDT Procedure visit [facility] [address] [facility] [address] [place] [address] Samm Ledesma, FIRE AND SAFETY HELPER [address] [facility] [address] [place] [address] 03/10/2025 12:30 PM EDT Appointment [facility] [place], [place] [id number] 03/10/2025 1:00 PM EDT Appointment [facility] Care Medical Oncology [place], [place] 9898117 Tacho Echavarria MD [address] [place] [address] [id number] 04/29/2025 9:15 AM EDT Appointment [facility] RAD [place]C [place], [place] 0398217 Batool Celis MD 1 [facility] [place] [address] 05/19/2025 2:15 PM EST Office Visit [facility] [address] [place] [address] [address] [facility] 1D [place] [address] Sin Tran MD [address] [place] [address] 08/12/2025 10:40 AM EST Appointment [facility] Women's Wellness [place] [address] Matt Ulrich MD 20 [facility] 254 [place], [place] [address] documented as of this encounter Goals Goal [...] EDT) 10/25/2023 10:4 4 AM EDT Narrative [facility] LAB - 11/11/2023 7:42 AM EDT Requesting Provider: KIT Womack Specimen = [id number] us Diane Ellis MD PATHOLOGY ORDERABLES Final Resul t [facility] 1 [place], [place] [id number] documented in this encounter Visit Diagnoses Not on filedocumented in this encounter Additional Health Concerns Infection Onset Date Last Indicated Resolved Time COVID-19 09/04/2024 09/04/2024 09/24/2024 10:1 2 PM EDT documented as of this encounter Care Teams Steam Boiler Fireman Relationship Specialty [place] [address] [place] [address] PCP - General 06/21/10 Arlyn Schmidt MD [address] [place] [address] Consulting Physician Internal Medicine-Endocrinolog y, Diabetes & Metabolism 11/28/20 Cheryl Nair RN Oncology Nurse Navigator 10/29/2302/05 Tacho Echavarria MD 1 [place], [place] 7658517 Internal Medicine-Medical Oncology 11/12/23 Matt Ulrich MD 1 [place], [place] 35456[address] Surgery-Surgical Oncology 12/04/23 Hilary Clemens, RN Registered [...] Nurse Infusion Therapy 04/03/24 04/03/24 Sanam Murray, [facility] Water/Wastewater Project Manager 04/10/24 07/30/24 Hilary Clemens, RN Registered Nurse Infusion Therapy 04/21/24 04/21/24 Ruthy Walker RN Registered Nurse Infusion Therapy 04/24/24 04/24/24 Rayna Partida, RN Registered Nurse Infusion Clinic 05/01/24 05/01/24 Artur Roberts RN Registered Nurse Infusion Therapy 05/07/24 05/07/24 Annette Walker, VEHICLE MECHANIC Water/Wastewater Project Manager 05/13/24 Emmie Crain, RN Registered Nurse Infusion Therapy 05/14/24 05/14/24 Brigida Enriquez, RN Registered Nurse Infusion Clinic 05/21/24 05/21/24 Fidel Rainey, RN Registered Nurse Infusion Therapy 05/28/24 05/28/24 Batool Celis MD [address] [place] [address] [place] [address] Radiation Oncologist Radiology-Radiation Oncology 06/08/24 documented as of this encounter
--- OUTSIDE RECORDS SUMMARY | 2025-02-19 14:03 | XMS_ITS | Encounter Summary ---
Author [place] [address] Care Team Providers Care Regional Marketing Director Name Role Phone Chetna Cedeno MD Primary Care Provider [phone] Arlyn Schmidt MD Unavailable [phone] Tacho Echavarria MD Unavailable [phone] Matt Ulrich MD Unavailable [phone] Eze Brock Unavailable Annette Walker Unavailable [phone] Batool Celis MD Unavailable [phone] Reason for Visit * Reason Onset Date Comments Other 02/01/2025 Currently inpati ent at [facility] Encounter Details Date Type Department Care Team (Late st Contact Info) Description 02/01/2025 Telephone Cancer Care Medical Oncology [place], [place] 0110817 Tacho Echavarria MD [address] [place] [address] [id number] Other (Currently inpatient at [facility] ) Social History Tobacco Use Types [...] Date Recorded PHQ-2 Total Score 5 07/07/2024 [facility] of Occupat ional Health - Occupational [...] in a assisted (including now)? No 11/07/2023 [facility] IP Transportation Answer D ate Recorded [...] to let know she was admitted to [facility] on Saturday and is still there.Has blood clot in lung and potassium was 2.5 Preferred call back number: [phone] documented in this encounter Plan of Treatment Upcoming Encounters Date Type Department Care Team (Late st Contact Info) Description 03/02/2025 11:40 AM EDT Office Visit [facility] [place] [address] [place] [address] [place] [address] [place] [address] 03/02/2025 12:45 PM EDT Procedure visit [facility] [address] [place] [address] Samm Ledesma, SEWING TRIMMER [address] [facility] [address] [place] [address] 03/10/2025 12:30 PM EDT Appointment [place] [address] 03/10/2025 1:00 PM EDT Appointment [facility] [place] [address] Tacho Echavarria MD [address] [place] [address] 04/29/2025 9:15 AM EDT Appointment [facility] [address] Batool Celis MD [address] [place] [address] [place] [address] 05/19/2025 2:15 PM EST Office Visit [address] [address] Sin Tran MD [address] [place] [address] 08/12/2025 10:40 AM EST Appointment [facility] Women's Wellness [facility] [place] [address] Matt Ulrich MD [address] [place] [address] 254 [place] [address] documented as of this encounter Goals Goal [...] documented as of this encounter Care Teams Regional Marketing Director Relationship Specialty [place] [address] [place] [address] PCP - General 06/21/10 Arlyn Schmidt MD [address] [place] [address] Consulting Physician Internal Medicine-Endocrinology, Diabetes & Metabolism 11/28/20 Tacho Echavarria MD 1 [place] [id number] Internal Medicine-Medical Oncology 11/12/23 Matt Ulrich MD 1 [place] [address] Surgery-Surgical Oncology 12/04/23 Eze Brock Pastoral Care 12/13/23 Annette Walker MSW Sugar Boiler 05/13/24 Batool Celis MD 1 [facility] [place] [address] Radiation Oncologist Radiology-Radiation Oncology 06/08/24 documented as of this encounter
--- OUTSIDE RECORDS SUMMARY | 2025-02-19 14:03 | XMS_ITS | Encounter Summary ---
Author Organization [place] [address] Care Team Providers Care Sr. Social Media & Mobile Manager Name Role Phone Chetna Cedeno MD Primary Care Provider [phone] Arlyn Schmidt MD Unavailable [phone] Tacho Echavarria MD Unavailable [phone] Matt Ulrich MD Unavailable [phone] Eze Brock Unavailable Cheryl Nair RN Unavailable [phone] Annette Walker HAIR SPRING WINDER Unavailable Batool Celis MD Unavailable [phone] Encounter Details Date Type Department Care Team (Late st Contact Info) Description 10/26/2024 Orders Only [facility] Physical Therapy [place] [address] [facility] [address] [place] [address] Shaunna Workman PT Social History [...] PHQ-2 Total Score 5 07/07/2024 [facility] [place] of Occupat ional Health - Occupational Stress [...] in a correction (including now)? No 11/07/2023 [facility] IP Transportation Answer [...] AM EDT Office Visit [facility] [facility] [address] [place] [address] [place] [address] [place] [address] 03/02/2025 12:45 PM EDT Procedure visit [facility] [address] [place] [address] Samm Ledesma, TOP ICER [address] [facility] [address] [place] [address] 03/10/2025 12:30 PM EDT Appointment [place] [address] 03/10/2025 1:00 PM EDT Appointment [place] [address] Tacho Echavarria MD [address] [place] [address] 04/29/2025 9:15 AM EDT Appointment [place] [address] Batool Celis MD [address] [place] [address] CANCER CARE [place] 1435817 05/19/2025 2:15 PM EST Office Visit [place] [address] [place] [address] Sin Tran MD [address] [place] [address] 08/12/2025 10:40 AM EST Appointment [facility] Women's Wellness [place] [address] [facility] [place] [address] Matt Ulrich MD [address] [place] [address] MUSA Zrai [facility] [address] documented as of this encounter Goals [...] documented as of this encounter Care Teams Sr. Social Media & Mobile Manager Relationship Specialty [place] [address] [place] [address] PCP - General 06/21/10 Arlyn Schmidt MD [address] [place], [place] [address] Consulting Physician Internal Medicine-Endocrinology , Diabetes & Metabolism 11/28/20 Tacho Echavarria MD 1 [place], [place] 5709117 Internal Medicine-Medical Oncology 11/12/23 Matt Ulrich MD 1 [place] [id number] Surgery-Surgical Oncology 12/04/23 Eze Brock Pastoral Care 12/13/23 Cheryl Nair, RN Oncology Nurse Navigator 03/25/2412/13 Annette aWlker, ARACELI Lean Coach 05/13/24 Batool Celis MD 1 [place], [place] 726[address]17 Radiation Oncologist Radiology-Radiation Oncology 06/08/24 documented as of this encounter
--- OUTSIDE RECORDS SUMMARY | 2025-02-19 14:03 | XMS_ITS | Encounter Summary ---
Author [place] [address] Care Team Providers Care Cashier Ticket Selling Name Role Phone Chetna Cedeno MD Primary Care Provider [phone] Arlyn Schmidt MD Unavailable [phone] Tacho Echavarria MD Unavailable [phone] Matt Ulrich MD Unavailable [phone] Eze Brock Unavailable Annette Walker Unavailable [phone] Batool Celis MD Unavailable [phone] Reason for Visit * Reason Comments Pharmacy Oncology Management Abemaciclib Encounter Details Date Type Department Care Team (Latest Contact Info) Description 02/03/2025 Specialty Pharmacy [facility] [address] [place] [address] Anisa Lozoya CPhT Pharmacy Oncology [...] Never 11/07/2023 [facility] Utilities Answer Date Recorded In the past 12 months has th e electric, gas, oil, or water [employer] threatened to shut off services in your [...] Total Score 5 07/07/2024 [facility] of Occupat ional Health - Occupational Stress [...] in a jail (including now)? No 11/07/[address] [facility] IP Transportation Answer D ate [...] she is being discharged tomorrow and will picker packer all her meds. She is unsure of supply left. * Blake Antoine RPH - 02/03/2025 11:05 AM EDT [facility] - Care Plan and Refill Review Refill questions and refill history verified. Last assessment 12/25/24. No reassessment needed at this time. Blake Antoine PharmD Specialty Pharmacist documented in this encounter Plan of Treatment Upcoming Encounters Date Type Department Care Team (Late st Contact Info) Description 03/02/2025 11:40 AM EDT Office Visit [facility]ULO MERRITT [address] [place] [address] [place] [address] [place] [address] 03/02/2025 12:45 PM EDT Procedure visit [facility] [address] [place] [address] Samm Ledesma, MAIL ORDER SORTER [address] [facility] [address] [place] [address] 03/10/2025 12:30 PM EDT Appointment [facility] [place], [place] [id number] 03/10/2025 1:00 PM EDT Appointment [facility] [place] [address] Tacho Echavarria MD [address] [place] [address] [id number] 04/29/2025 9:15 AM EDT Appointment [place] [address] Batool Celis MD [address] [place] [address] [place] [address] 05/19/2025 2:15 PM EST Office Visit [address] [address] Sin Tran MD [address] [place] [address] 08/12/2025 10:40 AM EST Appointment [facility] Women's Wellness [facility] [place] [address] Matt Ulrich MD [address] [place] [address] [address] [place] [address] documented as of this encounter Goals Goal [...] on track(2024 11:27 AM EDT) No Jasmin oPrter, RAUL Note: Patient will be compliant with [...] documented as of this encounter Care Teams Cashier Ticket Selling Relationship Specialty [place] [address] [place] [address] PCP - General 06/21/10 Arlyn Schmidt MD [address] [place] [address] Consulting Physician Internal Medicine-Endocrinology, Diabetes & Metabolism 11/28/20 Tacho Echavarria MD 1 [place] [address] Internal Medicine-Medical Oncology 11/12/23 Matt Ulrich MD 1 [place] [address] Surgery-Surgical Oncology 12/04/23 Eze Brock Pastoral Care 12/13/23 Aaron Annette, CHARGE MANAGER Tail Ripper 05/13/24 Batool Celis MD 1 [facility] [place] [address] Radiation Oncologist Radiology-Radiation Oncology 06/08/24 documented as of this encounter
--- OUTSIDE RECORDS SUMMARY | 2025-02-19 14:03 | XMS_ITS | Encounter Summary ---
Author Organization [place] [address] Care Team Providers Care Street Light Mechanic Name Role Phone Chetna Cedeno MD Primary Care Provider Arlyn Schmidt MD Unavailable [phone] Tacho Echavarria MD Unavailable Matt Ulrich MD Unavailable Eze Brock Unavailable Cheryl Nair RN Unavailable [phone] Sanam Murray ENVIRONMENTAL RESEARCH PROJECT MANAGER Unavailable Unavailable Annette Walker ENVIRONMENTAL RESEARCH PROJECT MANAGER Unavailable [phone] Batool Celis MD Unavailable [phone] Encounter Details Date Type Department Care Team (Late st Contact Info) Description 07/06/2024 Orders Only [facility] LAB[facility] One [facility] [address] [place] [address] Shilpa Tan MD [address] [place] [address] 150- Social History Tobacco Use Types Packs/Day Years [...] your doctor or pharmacy? Never 11/07/2023 [facility] Utilities Answer Date Recorded In the [...] now)? No 11/07/2023 [facility] IP Transportation Answer D ate Recorded [...] 07/06/2024 4:32 PM Kayla Lee RN * [place] Suicide Severity Rating Scale (Q shift for [...] 11:40 AM EDT Office Visit ROMULO MERRITT [address] [place] [address] [place] [address] [address] [place] [address] 03/02/2025 12:45 PM EDT Procedure visit [facility] NEUROLOG[facility] [address] [place], [place] 17[address] Samm Ledesma, BOTTLE DEALER [address] [facility] [address] [place], [place] [address] 03/10/2025 12:30 PM EDT Appointment [place] [address] 03/10/2025 1:00 PM EDT Appointment [facility] [place] [address] Tacho Echavarria MD [address] [place] [address] [id number] 04/29/2025 9:15 AM EDT Appointment [place] [address] Batool Celis MD [address] [place] [address] [place] [address] 05/19/2025 2:15 PM EST Office Visit [address] [address] Sin Tran MD [address] [place] [address] 08/12/2025 10:40 AM EST Appointment [facility] Women's Wellness [facility] [place] [id number] Matt Ulrich MD [address] [place] [address] documented as of this encounter Goals Goal Patient Goal Type Associated Problems Recent Progress Patient-Stated? Author Blood Pressure < 140/90 Blood Pressure 121/77(02/04 2:04 PM EDT) No Chetna Cedeno MD Breast [facility] Breast Health On track(2024 11:27 AM EDT) No Jasmin Porter, RN Note: Patient acknowledges understanding of new diagnosis, plan of care, available resources and how to contact Nurse Navigator with any future questions or concerns. Breast [facility] Breast Health Not on track(2024 11:27 [...] EST) 07/06/2024 12:5 1 PM EST Narrative [facility] - 09/24/2024 2:31 PM EDT Requesting Provider: MATT Womack Specimen = [id number] us Shilpa Tan MD PATHOLOGY ORDERABLES Final R esult [facility] 1 [place] [address] documented in this encounter Visit Diagnoses Not on filedocumented in this encounter Additional Health Concerns Infection Onset Date Last Indicated Resolved Time COVID-19 09/04/2024 09/04/2024 09/24/2024 10:1 2 PM EDT Assessment Noted Time PHQ-9 Depression Total Score: 12 03/16/ 024 12:00 PM EDT documented as of this encounter Care Teams Street Light Mechanic Relationship Specialty [place] [address] [place] [address] PCP - General 06/21/10 Arlyn Schmidt MD [address] [place], [place] 07[address] Consulting Physician Internal Medicine-Endocrinology , Diabetes & Metabolism 11/28/20 Tacho Echavarria MD 1 [place] [address] Internal Medicine-Medical Oncology 11/12/23 Matt Ulrich MD 1 [place], [place] 447[address]17 Surgery-Surgical Oncology 12/04/23 Eze Brock Pastoral Care 12/13/23 Cheryl Nair, RN Oncology Nurse Navigator 03/25/2412/13 Sanam Murray MSW Presser And Blocker Knitted Goods 04/10/24 07/30/24 Annette Walker MSW Presser And Blocker Knitted Goods 05/13/24 Batool Celis MD 1 [facility] [place] [address] Radiation Oncologist Radiology-Radiation Oncology 06/08/24 documented as of this encounter
--- OUTSIDE RECORDS SUMMARY | 2025-02-19 14:03 | XMS_ITS | Encounter Summary ---
Author Organization [place] [address] Care Team Providers Care Cell Attendant Name Role Phone Chetna Cedeno MD Primary Care Provider [phone] Arlyn Schmidt MD Unavailable [phone] Tacho Echavarria MD Unavailable [phone] Matt Ulrich MD Unavailable [phone] Eze Brock Unavailable Annette Walker Unavailable [phone] Batool Celis MD Unavailable [phone] Reason for Visit * Reason Onset Date Comments Follow-up 02/12/2025 Updated form, lo an deferment form Encounter Details Date Type Department Care Team (Late st Contact Info) Description 02/12/2025 Telephone [facility] Medical Oncology [place], [place] [phone] Eze Rowland MD [address] [place] [address] [id number] Follow-up (Updated form, loan deferment form ) [...] PHQ-2 Total Score 5 07/07/2024 [facility] of Occupat ional Health - Occupational Stress [...] a group home (including now)? No 11/07/2023 [facility] IP Transportation Answer D ate Recorded In [...] to fill out for loan deferment via [employer] message. documented in this encounter Plan of Treatment Upcoming Encounters Date Type Department Care Team (Late st Contact Info) Description 03/02/2025 11:40 AM EDT Office Visit [facility]P [facility] [address] [place] [address] [place] [address] [place] [address] 03/02/2025 12:45 PM EDT Procedure visit [facility] [address] [address] [place] [address] Samm Ledesma, MIXER OPERATOR RAW SALT [address] [facility] [facility] [address] [place] [address] 03/10/2025 12:30 PM EDT Appointment [facility] [place], [place] [id number] 03/10/2025 1:00 PM EDT Appointment [facility] [place] [address] Tacho Echavarria MD 1 [place], [place] 4590217 04/29/2025 9:15 AM EDT Appointment [facility] [address] Batool Celis MD [address] [facility] [place] [address] 05/19/2025 2:15 PM EST Office Visit [facility] [address] [place] [address] 1[address] [place] [address] Sin Tran MD [address] [place] [address] 08/12/2025 10:40 AM EST Appointment [facility] Women's Wellness [place] One [facility] [place] [address] Matt Ulrich MD [address] [place] [address] documented as of this encounter Goals Goal [...] documented as of this encounter Care Teams Cell Attendant Relationship Specialty [place] [address] [place] [address] PCP - General 06/21/10 Arlyn Schmidt MD [address] [place] [address] Consulting Physician Internal Medicine-Endocrinology, Diabetes & Metabolism 11/28/20 Tacho Echavarria MD 1 [place], [place] 7103117 Internal Medicine-Medical Oncology 11/12/23 Matt Ulrich MD 1 [place] [address] Surgery-Surgical Oncology 12/04/23 Eze Brock Pastoral Care 12/13/23 Annette Walker MSW Riveting Machine Operator Tape Control 05/13/24 Batool Celis MD 1 [facility] CANCER C[facility] [place], [place] 50[address] Radiation Oncologist Radiology-Radiation Oncology 06/08/24 documented as of this encounter
--- OUTSIDE RECORDS SUMMARY | 2025-02-19 14:03 | XMS_ITS | Encounter Summary ---
Author Organization [place] [address] Care Team Providers Care Grizzly Worker Name Role Phone Chetna Cedeno MD Primary Care Provider [phone] Arlyn Schmidt MD Unavailable [phone] Tacho Echavarria MD Unavailable [phone] Matt Ulrich MD Unavailable [phone] Eze Brock Unavailable Annette Walker Unavailable [phone] Batool Celis MD Unavailable [phone] Reason for Visit * Reason Onset Date Comments Follow-up 12/23/2024 Encounter Details Date Type Department Care Team (Late Contact Info) Description 12/23/2024 Telephone [facility] 1 [place], [place] [id number] Tacho Echavarria MD 1 [place], [place] 4055317 Follow-up Social History Tobacco Use Types Packs/Day [...] from your doctor or pharmacy? Never 11/07/2023 [facility] Utilities Answer Date Recorded In [...] in a longterm (including now)? No 11/07/2023 [facility] IP Transportation Answer D ate Recorded In [...] is disconnected, no HIPAA on file. Sent [employer] message for pt to call [phone] schedule appointment and update personal info. * Telephone Encounter - Rosana Gupta RN - 12/23/2024 1:22 PM EDT Patient needs to get loretta draws every 3 months. [employer] system shows the kit was mailed to [...] 11:40 AM EDT Office Visit [facility]ULO Timoteo [address] [place] [address] [place] [address] [place] [address] 03/02/2025 12:45 PM EDT Procedure visit [facility] NEUROLOGY HECTOR [address] [facility] [address] [place] [address] Samm Ledesma, LEYLA [address] [facility] [address] [place] [address] 03/10/2025 12:30 PM EDT Appointment [place] [address] 03/10/2025 1:00 PM EDT Appointment [facility] [place] [address] Tacho Echavarria MD [address] [place] [address] 04/29/2025 9:15 AM EDT Appointment [place] [address] Batool Celis MD [address] [place] [address] [place] [address] 05/19/2025 2:15 PM EST Office Visit [facility] [address] [place] [address] [address] [facility] 1[address] [place] [address] Sin Tran MD [address] [facility] [place] [address] 08/12/2025 10:40 AM EST Appointment [facility] Women's Wellness [place] One [facility] [address] Matt Ulrich MD [address] [place] [address] 254 [place] [address] documented as of this encounter Goals Goal [...] documented as of this encounter Care Teams Grizzly Worker Relationship Specialty [place] [address] [place] [address] PCP - General 06/21/10 Arlyn Schmidt MD [address] [place], [place] 06[address] Consulting Physician Internal Medicine-Endocrinology, Diabetes & Metabolism 11/28/20 Tahco Echavarria MD 1 [place], [place] 9672917 Internal Medicine-Medical Oncology 11/12/23 Matt Ulrich MD 1 [place], [place] 5898[address] Surgery-Surgical Oncology 12/04/23 Eze Brock Pastoral Care 12/13/23 Annette Walker, FOOD SERVICE KITCHEN SUPERVISOR Sap Bods Developer 05/13/24 Batool Celis MD 1 [place], [place] 9200517 Radiation Oncologist Radiology-Radiation Oncology 06/08/24 documented as of this encounter
--- OUTSIDE RECORDS SUMMARY | 2025-02-19 14:03 | XMS_ITS | Encounter Summary ---
Author Organization [place] [address] Care Team Providers Care Telephone Station Repairer Name Role Phone Kit Cedeno MD Primary Care Provider [phone] Arlyn Schmidt MD Unavailable [phone] Cheryl Nair RN Unavailable [phone] Tacho Echavarria MD Unavailable [phone] Matt Ulrich MD Unavailable [phone] Hilary Clemens RN Unavailable Unavaila Eze Caro Unavailable Shila Albrecht RN Unavailable Unavail able Cheyanne To RN Unavailable Unavailabl Rayna Wong RN Unavailable Unavailab Shilpa Olivarez RN Unavailable [phone] Tulio Duong RN Unavailable Unavailable Yaquelin Weaver RN Unavailable Unavailable Pam Wang RN Unavailable Unavailable Jazmín Nair RN Unavailable Unavailable Fidel Rainey RN Unavailable Unavailable Cheryl Nair RN Unavailable [phone] Ophelia Lala RN Unavailable Glo Lee RN Unavailable Unavailab Sanam Evans ORACLE SOA CONSULTANT Unavailable Unavailable Hilary Clemens RN Unavailable Unavaila Ruthy Clayton RN Unavailable Unavailable Rayna Partida RN Unavailable Unavailab Artur Nelson RN Unavailable Unavailable Annette Walker ORACLE SOA CONSULTANT Unavailable [phone] Emmie Crain RN Unavailable Unavailable Brigida Enriquez RN Unavailable Unavailable Fidel Rainey RN Unavailable Unavailable Batool Celis MD Unavailable [phone] Encounter Details Date Type Department Care Team (Late st Contact Info) Description 10/25/2023 Orders Only [facility] LAB[facility] One [facility] [place] [address] Diane Ellis MD 1 [place] [address] Social History Tobacco Use Types [...] 11:40 AM EDT Office Visit SEP Mahmood [address] [place] [address] [place] [address] [place] [address] 03/02/2025 12:45 PM EDT Procedure visit [facility] NEUROLOGY HECTOR [address] [facility] [address] [place] [address] Samm Ledesma, AQUACULTURIST [address] [facility] [address] [place] [address] 03/10/2025 12:30 PM EDT Appointment [facility] [place], [place] 8804817 03/10/2025 1:00 PM EDT Appointment [facility] Medical Oncology [place], [place] 2403817 Tacho Echavarria MD [address] [place] [address] [id number] 04/29/2025 9:15 AM EDT Appointment [facility] RAD ONC [place], [place] 8[address] Batool Celis MD 1 [facility] [place] [address] 05/19/2025 2:15 PM EST Office Visit [facility] [address] [place] [address] [address] [place] [address] Sin Tran MD [address] [place] [address] 08/12/2025 10:40 AM EST Appointment [facility] Women's Wellness [place] One [facility] [place] [address] Matt Ulrich MD 20 [facility] 254 [place], [place] 246[address] documented as of this encounter Goals Goal [...] 10/25/2023 10:4 4 AM EDT Narrative [facility] - 11/11/2023 2:42 PM EDT Requesting Provider: KIT Womack Specimen = [id number] us Diane Ellis MD PATHOLOGY ORDERABLES Final Resul t H LAB 1 [place], [place] [id number] documented in this encounter Visit Diagnoses Not on filedocumented in this encounter Additional Health Concerns Infection Onset Date Last Indicated Resolved Time COVID-19 09/04/2024 09/04/2024 09/24/2024 10:1 2 PM EDT documented as of this encounter Care Teams Telephone Station Repairer Relationship Specialty [place] [address] [place] [address] PCP - General 06/21/10 Arlyn Schmidt MD [address] [place] [address] Consulting Physician Internal Medicine-Endocrinolog y, Diabetes & Metabolism 11/28/20 Cheryl Nair RN Oncology Nurse Navigator 10/29/2302/05 Tacho Echavarria MD 1 [place], [place] 2881617 Internal Medicine-Medical Oncology 11/12/23 Matt Ulrich MD 1 [place] [address] Surgery-Surgical Oncology 12/04/23 Hilary Clemens, RN Registered [...] Nurse Infusion Therapy 04/03/24 04/03/24 Sanam Murray, [facility] Retail Account Executive 04/10/24 07/30/24 Hilary Clemens, RN Registered Nurse Infusion Therapy 04/21/24 04/21/24 Ruthy Walkre RN Registered Nurse Infusion Therapy 04/24/24 04/24/24 Rayna Partida, RN Registered Nurse Infusion Clinic 05/01/24 05/01/24 Artur Roberts RN Registered Nurse Infusion Therapy 05/07/24 05/07/24 Annette Walker, ORACLE SOA CONSULTANT Retail Account Executive 05/13/24 Emmie Crain, RN Registered Nurse Infusion Therapy 05/14/24 05/14/24 Brigida Enriquez, RN Registered Nurse Infusion Clinic 05/21/24 05/21/24 Fidel Rainey, RN Registered Nurse Infusion Therapy 05/28/24 05/28/24 Batool Celis MD [address] [place] [address] [place] [address] Radiation Oncologist Radiology-Radiation Oncology 06/08/24 documented as of this encounter
--- OUTSIDE RECORDS SUMMARY | 2025-02-19 14:03 | XMS_ITS | Encounter Summary ---
Author Organization [place] [address] Care Team Providers Care Lacquer Pin Press Operator Name Role Phone Chetna Cedeno MD Primary Care Provider [phone] Arlyn Schmidt MD Unavailable [phone] Tacho Echavarria MD Unavailable Matt Ulrich MD Unavailable [phone] Eze Brock Unavailable Cheryl Nair RN Unavailable [phone] Annette Walker COMPUTER SYSTEMS ANALYST Unavailable [phone] Batool Celis MD Unavailable [phone] Encounter Details Date Type Department Care Team (Late st Contact Info) Description 12/07/2024 Results Follow-Up HECTOR ENDOSCOPY [address] [facility] [place] [address] King Oliva MD [address] [place] [address] PATHOLOGY TISSUE REQUEST Social History Tobacco Use [...] in a halfway (including now)? No 11/07/2023 [facility] IP Transportation [...] 11:40 AM EDT Office Visit [facility] [address] [place] [address] [place] [address] [place] [address] 03/02/2025 12:45 PM EDT Procedure visit [facility] NEUROLOGY [facility]ECTOR [address] [place] [address] Samm Ledesma, HOUSEKEEPER/LAUNDRY ASSISTANT [address] [facility] [address] [place] [address] 03/10/2025 12:30 PM EDT Appointment [place] [address] 03/10/2025 1:00 PM EDT Appointment [facility] Medical Oncology [place], [place] [phone] Tacho Echavarria MD [address] [place] [address] [id number] 04/29/2025 9:15 AM EDT Appointment [place] [address] Batool Celis MD [address] [place] [address] [place] [address] 05/19/2025 2:15 PM EST Office Visit [facility] Sarah [address] [facility] [address] [place] [address] Sin Tran MD [facility] [place] [address] 08/12/2025 10:40 AM EST Appointment [facility] Women's Wellness [place] [address] Matt Ulrich MD [address] [place] [address] [address] [place] [address] documented as of this encounter [...] documented as of this encounter Care Teams Lacquer Pin Press Operator Relationship Specialty Start [place] [address] [place] [address] PCP - General 06/21/10 Arlyn Schmidt MD [address] [place] [address] Consulting Physician Internal Medicine-Endocrinology , Diabetes & Metabolism 11/28/20 Tacho Echavarria MD 1 [place] [address] Internal Medicine-Medical Oncology 11/12/23 Matt Ulrich MD 1 [place] [address] Surgery-Surgical Oncology 12/04/23 Eze Brock Pastoral Care 12/13/23 Cheryl Nair, RN Oncology Nurse Navigator 03/25/2412/13 Annette Walker MSW Talent Assistant 05/13/24 Batool Celis MD 1 [facility] [place] [address] Radiation Oncologist Radiology-Radiation Oncology 06/08/24 documented as of this encounter
--- OUTSIDE RECORDS SUMMARY | 2025-02-19 14:03 | XMS_ITS | Encounter Summary ---
Author Organization [place] [address] Care Team Providers Care Electronics Assembler Name Role Phone Chetna Cedeno MD Primary Care Provider [phone] Leslie Cooley HAND BOOTMAKER Unavailable UnaBatool Talley COLLAR CUTTER Unavailable Unavailab Arlyn Disla MD Unavailable [phone] Cheryl Nair RN Unavailable [phone] Tacho Echavarria MD Unavailable [phone] Matt Ulrich MD Unavailable [phone] Hilary Clemnes RN Unavailable Unavaila Eze Caro Unavailable Shila Albrecht RN Unavailable Unavail able Cheyanne To RN Unavailable UnavailRayna Johnson RN Unavailable Unavailab Shilpa Olivarez RN Unavailable [phone] Tulio Duong RN Unavailable Unavailable Yaquelin Weaver RN Unavailable Unavailable Pam Wang RN Unavailable Unavailable Jazmín Nair RN Unavailable Unavailable Fidel Rainey RN Unavailable Unavailable Cheryl Nair RN Unavailable [phone] Ophelia Lala RN Unavailable Glo Lee RN Unavailable Unavailab Sanam Evans CORPORATE DEVELOPMENT OFFICER Unavailable Unavailable Hilary Clemens RN Unavailable Unavaila Ruthy Clayton RN Unavailable Unavailable Rayna Partida RN Unavailable Unavailab Artur Nelson RN Unavailable Unavailable Annette Walker CORPORATE DEVELOPMENT OFFICER Unavailable [phone] Emmie Crain RN Unavailable Unavailable Brigida Enriquez RN Unavailable Unavailable Fidel Rainey RN Unavailable Unavailable Batool Celis MD Unavailable [phone] Encounter Details Date Type Department Care Team (Late st Contact Info) Description 07/12/2015 Orders Only [facility] [facility] [address] [place] [phone] Stone Cronin MD Social History Tobacco Use [...] 11:40 AM EDT Office Visit [facility] [place] [address] [place] [address] [place] [address] [place] [address] 03/02/2025 12:45 PM EDT Procedure visit [facility] [address] [facility] [address] [place] [address] Samm Ledesma CONTROL CLERK REPAIRS [address] [facility] [facility] [address] [place] [address] 03/10/2025 12:30 PM EDT Appointment [place] [address] 03/10/2025 1:00 PM EDT Appointment [facility] [place] [address] Tacho Echavarria MD 1 [place] [address] 04/29/2025 9:15 AM EDT Appointment [facility] [place] [place] [address] Batool Celis MD [address] [facility] [address] [place] [address] 05/19/2025 2:15 PM EST [facility] [address] [facility] [address] [place] [address] Sin Tran MD [facility] [place] [address] 08/12/2025 10:[address] [facility] Women's Wellness [place] One [facility] [place] [address] Matt Ulrich MD 20 [facility] 254 [place] [address] documented as of this encounter Procedures Procedure Name Priority Date/Time Associated Diagnosis Comments [facility] COLONOSCOPY Routine 07/12/2015 2:30 PM EST documented in this encounter Results * [facility] COLONOSCOPY (07/12/2015 2:30 PM EST) 07/12/2015 2:[address] [facility] - 07/12/2015 3:30 PM [...] ORDERABLES Doris [email or web address] Result [facility] 1 [place] [address] documented in this encounter Visit Diagnoses Not [...] documented as of this encounter Care Teams Electronics Assembler Relationship Specialty [place] [address] [place] [address] PCP - General 06/21/10 Leslie Cooley, HAND BOOTMAKER Environmental Services Project Manager 01/28/19 07/15/19 Batool Myers COLLAR CUTTER Environmental Services Project Manager 02/13/19 07/15/19 Arlyn Schmidt MD [facility] Kevin [place], [place] [id number] Consulting Physician Internal Medicine-Endocrinolog y, Diabetes & Metabolism 11/28/20 Cheryl Nair, RN Oncology Nurse Navigator 10/29/2302/05 Tacho Echavarria MD 1 [place] [address] Internal Medicine-Medical Oncology 11/12/23 Matt Ulrich MD [address] [place] [address] Surgery-Surgical Oncology 12/04/23 Hilary Clemens, RN Registered [...] Nurse Infusion Therapy 04/03/24 04/03/24 Sanam Murray, CORPORATE DEVELOPMENT OFFICER Environmental Services Project Manager 04/10/24 07/30/24 Hilary Clemens, RN Registered Nurse Infusion Therapy 04/21/24 04/21/24 Ruthy Walker RN Registered Nurse Infusion Therapy 04/24/24 04/24/24 Rayna Partida, RN Registered Nurse Infusion Clinic 05/01/24 05/01/24 Artur Roberts RN Registered Nurse Infusion Therapy 05/07/24 05/07/24 Aaron Annette, CORPORATE DEVELOPMENT OFFICER Environmental Services Project Manager 05/13/24 Emmie Crain, RN Registered Nurse Infusion Therapy 05/14/24 05/14/24 Brigida Enriquez, RN Registered Nurse Infusion Clinic 05/21/24 05/21/24 Fidel Rainey, RN Registered Nurse Infusion Therapy 05/28/24 05/28/24 Batool Celis MD [address] [place] [address] [place] [address] Radiation Oncologist Radiology-Radiation Oncology 06/08/24 documented as of this encounter
--- OUTSIDE RECORDS SUMMARY | 2025-02-19 14:03 | XMS_ITS | Encounter Summary ---
Author Organization [place] [address] Care Team Providers Care Sand Mill Operator Name Role Phone Chetna Cedeno MD Primary Care Provider [phone] Arlyn Schmidt MD Unavailable [phone] Tacho Echavarria MD Unavailable Matt Ulrich MD Unavailable Eze Brock Unavailable Cheryl Nair RN Unavailable [phone] Sanam Murray PERFECT BIND MACHINE OPERATOR Unavailable Unavailable Annette Walker PERFECT BIND MACHINE OPERATOR Unavailable [phone] Batool Celis MD Unavailable [phone] Encounter Details Date Type Department Care Team (Late st Contact Info) Description 07/06/2024 Orders Only [facility] One [facility] [address] [place] [address] Shilpa Tan MD [address] [place] [phone] Social History Tobacco Use Types Packs/Day Years [...] in a retirement (including now)? No 11/07/2023 [facility] IP Transportation Answer D [...] 07/06/2024 4:32 PM Kayla Lee RN * [place] Suicide Severity Rating Scale (Q shift for [...] 11:40 AM EDT Office Visit [facility] [place] [address] [place] [address] [place] [address] [address] [place] [address] 03/02/2025 12:45 PM EDT Procedure visit [facility] [address] [facility] [address] [place], [place] [id number] Samm Ledesma, FOOD SERVICE ASSOCIATE [address] [facility] [facility] [address] [place], [place] [address] 03/10/2025 12:30 PM EDT Appointment [place] [address] 03/10/2025 1:00 PM EDT Appointment [facility] [place] [address] Tacho Echavarria MD [address] [place] [id number] 04/29/2025 9:15 AM EDT Appointment [place] [address] Batool Celis MD [address] [place] [address] [place] [address] 05/19/2025 2:15 PM EST Office Visit [address] [address] Sin Tran MD [address] [place] [address] 08/12/2025 10:40 AM EST Appointment [facility] Women's Wellness [facility] [place] [phone] Matt Ulrich MD [address] [place] [address] documented as of this encounter Goals Goal [...] EST) 07/06/2024 12:5 1 PM EST Narrative [facility] - 09/24/2024 2:57 PM EDT Requesting Provider: MATT Womack Specimen = [id number] us Shilpa Tan MD PATHOLOGY ORDERABLES Final R esult [facility] 1 [place] [address] documented in this encounter Visit Diagnoses Not on filedocumented in this encounter Additional Health Concerns Infection Onset Date Last Indicated Resolved Time COVID-19 09/04/2024 09/04/2024 09/24/2024 10:1 2 PM EDT Assessment Noted Time PHQ-9 Depression Total Score: 12 03/16/ 024 12:00 PM EDT documented as of this encounter Care Teams Sand Mill Operator Relationship Specialty [place] [address] [place] [address] PCP - General 06/21/10 Arlyn Schmidt MD [address] [place], [place] [id number] Consulting Physician Internal Medicine-Endocrinology , Diabetes & Metabolism 11/28/20 Tacho Echavarria MD 1 [place] [address] Internal Medicine-Medical Oncology 11/12/23 Matt Ulrich MD 1 [place], [place] [address] Surgery-Surgical Oncology 12/04/23 Eze Brock Pastoral Care 12/13/23 Cheryl Nair, RN Oncology Nurse Navigator 03/25/2412/13 Sanam Murray MSW Track Subway Repair Supervisor 04/10/24 07/30/24 Annette Walker MSW Track Subway Repair Supervisor 05/13/24 Batool Celis MD 1 [facility] [place] [address] Radiation Oncologist Radiology-Radiation Oncology 06/08/24 documented as of this encounter
--- OUTSIDE RECORDS SUMMARY | 2025-02-19 14:03 | XMS_ITS | Encounter Summary ---
Author Organization [place] [address] Care Team Providers Care Practicing Urologist Name Role Phone Chetna Cedeno MD Primary Care Provider [phone] Arlyn Schmidt MD Unavailable [phone] Tacho Echavarria MD Unavailable [phone] Matt Ulrich MD Unavailable [phone] Eze Brock Unavailable Cheryl Nair RN Unavailable [phone] Annette Walker CONSULTING SME Unavailable [phone] Batool Celis MD Unavailable [phone] Encounter Details Date Type Department Care Team (Late st Contact Info) Description 10/27/2024 Orders Only [facility] Physical Therapy [place] [address] [facility] [address] [place] [address] Shaunna Workman PT Social History [...] from your doctor or pharmacy? Never 11/07/2023 [facility] Utilities Answer Date Recorded [...] Score 5 07/07/2024 [facility] [place] of Occupat ional Health - Occupational Stress [...] in a fdc (including now)? No 11/07/2023 [facility] IP Transportation Answer D ate Recorded [...] 11:40 AM EDT Office Visit [facility] [place] [address] [place] [address] [place] [address] [place] [address] 03/02/2025 12:45 PM EDT Procedure visit [facility] [address] [facility] [address] [place] [address] Samm Ledesma, LEYLA [address] [facility] [address] [place] [address] 03/10/2025 12:30 PM EDT Appointment [place] [address] 03/10/2025 1:00 PM EDT Appointment [facility] Oncology [place], [place] [address] Tacho Echavarria MD [address] [place] [address] 04/29/2025 9:15 AM EDT Appointment [place] [address] Batool Celis MD [address] [place] [address] [place] [address] 05/19/2025 2:15 PM EST Office Visit [facility] Sarah [address] [facility] [address] [place] [address] Sin Tran MD [address]00 [facility] [place] [address] 08/12/2025 10:40 AM EST Appointment [facility] Women's Wellness [facility] [place] [address] Matt Ulrich MD [address] [place] [address] 254 [place] [address] documented as of this encounter Goals Goal Patient Goal Type Associated Problems Recent Progress Patient-Stated? Author Blood Pressure < 140/90 Blood Pressure 121/77(02/04 2:04 PM EDT) No Chetna Cedeno MD Breast [facility] Breast Health On track(2024 11:27 AM [...] documented as of this encounter Care Teams Practicing Urologist Relationship Specialty [place] [address] [place] [address] PCP - General 06/21/10 Arlyn Schmidt MD [address] [place], [place] [address] Consulting Physician Internal Medicine-Endocrinology , Diabetes & Metabolism 11/28/20 Tacho Echavarria MD 1 [place], [place] [address] Internal Medicine-Medical Oncology 11/12/23 Matt Ulrich MD 1 [place], [place] [address] Surgery-Surgical Oncology 12/04/23 Eze Brock Pastoral Care 12/13/23 Cheryl Nair, RN Oncology Nurse Navigator 03/25/2412/13 Annette Walker, ARACELI Card Punching Machine Operator 05/13/24 Batool Celis MD 1 [facility] CANCER [place], [place] [address] Radiation Oncologist Radiology-Radiation Oncology 06/08/24 documented as of this encounter
--- OUTSIDE RECORDS SUMMARY | 2025-02-19 14:03 | XMS_ITS | Encounter Summary ---
Author Organization [place] [address] Care Team Providers Care Lubrication Technician Name Role Phone Chetna Cedeno MD Primary Care Provider [phone] Arlyn Schmidt MD Unavailable [phone] Tacho Echavarria MD Unavailable [phone] Matt Ulrich MD Unavailable [phone] Eze Brock Unavailable Annette Walker Unavailable [phone] Batool Celis MD Unavailable [phone] Reason for Visit * Reason Comments [facility] En[facility] Details Date Type Department Care Team (Latest Contact Info) Description 02/02/2025 Specialty Pharmacy [facility] [address] [place] [address] Kevin Chacon PharmD Pharmacy [facility] Social History Tobacco Use Types Packs/Day Years [...] th e electric, gas, oil, or water [employer] threatened to shut off services in your [...] Total Score 5 07/07/2024 [facility] [place] of Occupat ional Health - Occupational Stress [...] in a fdc (including now)? No 11/07/2023 [facility] IP Transportation Answer D ate [...] Chacon PharmD - 02/02/2025 1:39 PM EDT [facility] Prescription received for Nurtec (75mg). Prescription requires prior authorization. Will complete clinical review. Patient will not need IA if able to fill here (continuation of therapy). * Kevin Chacon PharmD - 02/02/2025 1:39 PM EDT [facility] - Migraine Clinical Review El [...] into the lungs daily. fluticasone propionate 1 [place] by Nasal route daily. Aerochamber MV 1 Each by [facility]Non-Drug; Combo Route) route as needed. ketorolac Take [...] Monson CPhT - 02/02/2025 1:39 PM EDT [facility] Prior Authorization [facility] [employer] insurance via [employer] ([employer] [id number]). Will follow up on 02/04. * Annamarie aMrk CPhT - 02/02/2025 1:39 PM EDT [facility] Prior Authorization Determination Received notice of PA approval for [facility] . PA approved from 02/02/2025 to 05/05/2025. Patient is able to fill at [facility]. Copay is $0. No answer, left voicemail to call [phone], option 4. Initial assessment not needed for [...] AM EDT Office Visit [facility] [place] [facility] [address] [place] [address] [place] [address] [place] [address] 03/02/2025 12:45 PM EDT Procedure visit [facility] [address] [facility] [address] [place] [address] Samm Ledesma APRN [address] [facility] [address] [place] [address] 03/10/2025 12:30 PM EDT Appointment [place] [address] 03/10/2025 1:00 PM EDT Appointment [facility] [place] [address] Tacho Echavarria MD [address] [place] [id number] 04/29/2025 9:15 AM EDT Appointment [place] [address] Batool Celis MD [address] [facility] [place] [address] 05/19/2025 2:15 PM EST Office Visit [facility] [address] [place] [address] Sin Tran MD [address] [place] [address] [place] [address] 08/12/2025 10:40 AM EST Appointment [facility] Women's Wellness [place] One [facility] [place] [address] Matt Ulrich MD [address] [address] documented as of this encounter [...] documented as of this encounter Care Teams Lubrication Technician Relationship Specialty [place] [address] [place] [address] PCP - General 06/21/10 rAlyn Schmidt MD [address] [place], [place] [address] Consulting Physician Internal Medicine-Endocrinology, Diabetes & Metabolism 11/28/20 Tacho Echavarria MD 1 [place], [place] [address]17 Internal Medicine-Medical Oncology 11/12/23 Matt Ulrich MD 1 [place], [place] [address] Surgery-Surgical Oncology 12/04/23 Eze Brock Pastoral Care 12/13/23 Annette Walker, GAS ATTENDANT Music Leader 05/13/24 Batool Celis MD 1 [facility] [place], [place] [address] Radiation Oncologist Radiology-Radiation Oncology 06/08/24 documented as of this encounter
--- OUTSIDE RECORDS SUMMARY | 2025-02-19 14:04 | XMS_ITS | Encounter Summary ---
Author Organization [place] [address] Care Team Providers Care County Nurse Name Role Phone Chetna Cedeno MD Primary Care Provider [phone] Arlyn Schmidt MD Unavailable [phone] Tacho Echavarria MD Unavailable [phone] Matt Ulrich MD Unavailable [phone] Eze Brock Unavailable Annette Walker Unavailable [phone] Batool Celis MD Unavailable [phone] Reason for Visit * Reason Onset Date Comments Other 02/05/2025 [facility] Encounter Details Date Type Department Care Team (Late st Contact Info) Description 02/05/2025 Telephone [facility] [place] [address] [place] [address] [place] [address] [place] [address] Other (BW) Social History Tobacco Use [...] a skilled nursing (including now)? No 11/07/2023 [facility] IP Transportation Answer D ate Recorded [...] potassium tabs for her to take to [facility] * Telephone Encounter - Destiny Alejandre [...] 11:40 AM EDT Office Visit [facility] [place] [address] [place] [address] [place] [address] [place] [address] 03/02/2025 12:45 PM EDT Procedure visit [facility] [address] [place] [address] Samm Ledesma, CASH MANAGEMENT SPECIALIST [address] [facility] [address] [place] [address] 03/10/2025 12:30 PM EDT Appointment [facility] [place], [place] [id number] 03/10/2025 1:00 PM EDT Appointment [facility] [place] [address] Tacho Echavarria MD [address] [place] [address] [id number] 04/29/2025 9:15 AM EDT Appointment [place] [address] Batool Celis MD [address] [place] [address] [place] [address] 05/19/2025 2:15 PM EST Office Visit [address] [address] Sin Tran MD [address] [place] [address] 08/12/2025 10:40 AM EST Appointment [facility] Women's Wellness [facility] [place] [address] Matt Ulrich MD [address] [place] [address] 254 [place] [address] documented as of this encounter Goals Goal [...] documented as of this encounter Care Teams County Nurse Relationship Specialty [place] [address] [place] [address] PCP - General 06/21/10 Arlyn Schmidt MD [address] [place] [address] Consulting Physician Internal Medicine-Endocrinology, Diabetes & Metabolism 11/28/20 Tacho Echavarria MD 1 [place] [address] Internal Medicine-Medical Oncology 11/12/23 Matt Ulrich MD 1 [place] [address] Surgery-Surgical Oncology 12/04/23 Eze Brock Pastoral Care 12/13/23 Annette Walker, ARACELI Die Casting Machine Setter 05/13/24 Batool Celis MD [address] [place] [address] [place] [address] Radiation Oncologist Radiology-Radiation Oncology 06/08/24 documented as of this encounter
--- OUTSIDE RECORDS SUMMARY | 2025-02-19 14:04 | XMS_ITS | Encounter Summary ---
Author Organization [place] [address] Care Team Providers Care Dye Padder Operator Name Role Phone Chetna Cedeno MD Primary Care Provider [phone] Arlyn Schmidt MD Unavailable [phone] Tacho Echavarria MD Unavailable [phone] Matt Ulrich MD Unavailable [phone] Eze Brock Unavailable Annette Walker Unavailable [phone] Batool Celis MD Unavailable [phone] Reason for Visit * Reason Onset Date Comments Appointment Needed 02/04/2025 Encounter Details Date Type Department Care Team (Late st Contact Info) Description 02/04/2025 Telephone [facility] [place] [address] Aliya Harden, Clerical Staff Appointment [...] doctor or pharmacy? Never 11/07/2023 [facility] Utilities Answer Date Recorded In the past 12 months has th e electric, gas, oil, or water [employer] threatened to shut off services in [...] Date Recorded PHQ-2 Total Score 5 07/07/2024 [employer] [place] of Occupat ional Health - Occupational [...] a senior living (including now)? No 11/07/2023 [facility] IP Transportation Answer D [...] 11:40 AM EDT Office Visit [facility] [address] [place] [address] [place] [address] [place] [address] 03/02/2025 12:45 PM EDT Procedure visit [facility] [address] [facility] [address] [place] [address] Samm Ledesma, DB2 DEVELOPER [address] [facility] [address] [place] [id number] 03/10/2025 12:30 PM EDT Appointment [place] [address] 03/10/2025 1:00 PM EDT Appointment [facility] [place] [address] Tacho Echavarria MD [address] [place] [id number] 04/29/2025 9:15 AM EDT Appointment [facility] [place] [address] Batool Celis MD [address] [place] [address] 05/19/2025 2:15 PM EST Office Visit [address] [address] Sin Tran MD [address] [place] [address] 08/12/2025 10:40 AM EST Appointment [facility] Women's Wellness [facility] [place] [address] Matt Ulrich MD [address] [place] [address] 254 [place] [address] documented as of this encounter Goals Goal [...] as of this encounter Care Teams Dye Padder Operator Relationship Specialty [place] [address] [place] [address] PCP - General 06/21/10 Arlyn Schmidt MD [address] [place] [address] Consulting Physician Internal Medicine-Endocrinology, Diabetes & Metabolism 11/28/20 Tacho Echavarria MD 1 [place] [address] Internal Medicine-Medical Oncology 11/12/23 Matt Ulrich MD 1 [place] [address] Surgery-Surgical Oncology 12/04/23 Eze Brock Pastoral Care 12/13/23 Jasmyn Walkerica, GLOVE PRESSER Custom Decorating Consultant 05/13/24 Batool Celis MD [address] [place] [address] [place] [address] Radiation Oncologist Radiology-Radiation Oncology 06/08/24 documented as of this encounter
--- OUTSIDE RECORDS SUMMARY | 2025-02-19 14:04 | XMS_ITS | Referral Summary ---
Author Organization [facility] Address [address] [place] [address] Phone Care Team Providers Care Lease Operator Name Role Phone Chetna Cedeno MD Primary Care Provider [phone] Encounters Date Type Department Care Team Description 01/02/2025 4:26 PM EDT - 01/02/2025 7:27 PM EDT Emergency [facility] Emergency Department [address] [place] [address] Dallin Espinoza MD Heat exhaustion, [...] NITROGEN 16 8 - 26 mg/dL [facility]MI[facility] [place] SODIUM 140 135 - 145 mmol/L [facility] [place] POTASSIUM 3.2(L) 3.6 - 5.1 mmol/L [facility] [place] CHLORIDE 107 98 - 111 mmol/L [facility] [place] CO2 20(L) 21 - 31 mmol/L [facility] [place] GLUCOSE, RANDOM 89 70 - 99 mg/dL [facility] [place] CREATININE 1.06 0.60 - 1.20 mg/dL [facility] [place] ANION GAP 13 4 - 16 mmol/L [facility] [place] CALCIUM 9.0 8.5 - 10.4 mg/dL [facility] [place] ESTIMATED GFR 61 >59 mL/min/1.7 3 m2 [facility] [place] Comment: Estimated GFR was calculated using the CKD-EPI cr (2020) equation refit without race. The equation is recommended by the National Kidney Foundation - [place] Society of Nephrology Task Force. Tested at [facility] [id number] [place] [address] Whole Blood 01/02/2025 5:13 PM EDT 01/02/2025 5:25 PM EDT us Dallin Espinoza MD LAB BLOOD ORDERABLES Final Result [facility] [address] [place] [address] [address] * (ABNORMAL) CBC w/ Diff (01/02/2025 5:13 PM EDT) WBC 7.1 3.6 - 10.5 THOU/mcL [facility] [place] RBC 3.75(L) 3.80 - 5.20 MIL/mcL [facility] [place] HEMOGLOBIN 11.2(L) 12.0 - 15.2 g/dL [facility] [place] HEMATOCRIT 33.6(L) 36 - 46 % [facility] MCV 89.6 82 - 97 fL [facility] MCH 30.0 27 - 33 pg [facility] [place] MCHC 33.5 32 - 36 g/dL [facility] [place] RDW 16.0 12.3 - 17.0 % [facility] [place] PLATELET 206 140 - 375 THOU/mcL [facility] [place] MPV 6.9(L) 7.0 - 11.5 fL [facility] [place] ABS. NEUTROPHIL 3.60 1.80 - 7.70 THOU/mcL [facility] [place] ABS LYMPHS 3.00 1.00 - 4.00 THOU/mcL [facility] [place] ABS MONOS 0.30 0.20 - 0.90 THOU/mcL [facility] [place] ABS EOS 0.10 0.03 - 0.45 THOU/mcL [facility] [place] ABS BASOS 0.10 0.00 - 0.20 THOU/mcL [facility] [place] SEGS 51 % [facility] [place] LYMPHOCYTES 43 % CHEMISTR Y NORTH MONOCYTES 4 % CHEMISTRY NORTH EOSINOPHIL 1 % CHEMISTRY [place] BASOPHILS 1 % [facility] [place] Comment:Tested at [facility] [address] [facility] [address] Whole Blood 01/02/2025 5:13 PM EDT 01/02/2025 5:25 PM EDT Dallin Espinoza MD LAB BLOOD ORDERABLES Final Result [facility] [address] [place] [address] CHE[facility]STR[facility] [place] [address] [place] [address] * ECG 12 lead (01/02/2025 4:37 PM [...] QTcF 417 ms TH TRACEMASTER QRS Horizontal Gila -19 deg TH TRACEMASTER QRS AXIS 16 deg TH TRACEMASTER I-40 Horizontal Gila 46 deg TH TRACEMASTER I-40 FRONT AXIS -17 deg TH TRACEMASTER T-40 Horizontal Gila -50 deg TH TRACEMASTER T-40 Front Gila 51 deg TH TRACEMASTER T Horizontal Gila 52 deg TH TRACEMASTER T WAVE AXIS 16 deg TH TRACEMASTER S-T Horizontal Gila 60 deg TH TRACEMASTER S-T Front Gila 24 deg TH TRACEMASTER ECG IMPRESSION - BORDERLINE ECG - TH TRACEMASTER ECG IMPRESSION SR-Sinus rhythm-normal P axis, V-rate 50-99 TH TRACEMASTER ECG IMPRESSION LVHVP-Probable left ventricular hypertrophy-mul tiple LVH criteria TH TRACEMASTER ECGGUID [id number] TH TRACEMASTER 01/02/2025 4:37 PM EDT us Dallin Espinoza MD ECG ORDERABLES Final Resu lt TH TRACEMASTER from Last 3 Months Insurance [facility] MEDICAID Care Teams Lease Operator Relationship Specialty Start Date End Date Chetna Cedeno MD [facility] [address] [place] [address] PCP - General Family Medicine 01/02/25
--- OUTSIDE RECORDS SUMMARY | 2025-02-19 14:04 | XMS_ITS | Encounter Summary ---
Author Organization [place] [address] Care Team Providers Care Laboratory Phlebotomist Name Role Phone Chetna Cedeno MD Primary Care Provider [phone] Arlyn Schmidt MD Unavailable [phone] Tacho Echavarria MD Unavailable [phone] Matt Ulrich MD Unavailable [phone] Eze Brock Unavailable Annette Walker LINING FINISHER Unavailable [phone] Batool Celis MD Unavailable [phone] Encounter Details Date Type Department Care Team (Late st Contact Info) Description 02/04/2025 Social Work [facility] Cancer Care [facility] [place] [address] Annette Walker, LINING FINISHER Social History Tobacco Use Types Packs/Day Years [...] from your doctor or pharmacy? Never 11/07/2023 [facility] Utilities Answer Date Recorded In the past 12 months has [employer], oil, or water [employer] threatened to shut off services in your [...] a senior care (including now)? No 11/07/2023 [facility] IP Transportation Answer D [...] - 02/04/2025 1:42 PM EDT 02/04/25 1341 Composite Assembler Assessment Referred By DT Disease/[place] Site Sole Inker Assignment Breast cancer Referral Location: [facility] Reason for Referral DT Identified Needs Adjustment to illness;Education/Information;Mental Health;Transportation Social Work Interventions Education/Information;Brief Couseling/Support;Transportation Distress Screening SW Reviewed Yes On this date, ARACELI Spears, ANESTHESIOLOGIST/PHYSICIAN met with patient in response to receipt of a distress tool submitted on patients behalf. Patient's distress tool rating was 10 and ANESTHESIOLOGIST/PHYSICIAN provided brief counseling/support to Patient. Patient explained she wanting to moved forward with her life but various issues are causing set backs including a recent hospitalization and newly discovered blood clot in her lung. Patient is continuing telehealth therapy with therapist, Jenniffer and although she had initial appointment with [facility] for medication management, she has not follow up with recommended appointment and request to refill medication has been declined. Patient states she had a reaction to the medication prescribed and has been taking medication prescribed by Dr. Echavarria's office for her depression. We discussed need to establish terminal operator relationship with therapist/medication management provider for her mental health. ANESTHESIOLOGIST/PHYSICIAN suggested communication with [facility] regarding side effects and possible alternatives. Patient expresses great relief of being out of the [facility] away from unhealthy relationships but has run into some issues with her new housing. She is working closely with [facility] to move to a lower floor and resolve issues including HVAC issues. She received donated air conditioner from [facility] and [facility] has allowed that unit. ANESTHESIOLOGIST/PHYSICIAN provided gas cards to assist Patient with fuel costs associated with long drive to her home. Patient expressed that she is focusing on stabilizing her health, gaining strength, and hopes to engage in a volunteer capacity in her new community soon. No other needs identified at this time. ANESTHESIOLOGIST/PHYSICIAN remains available to support as needed. documented in this encounter Plan of Treatment Upcoming Encounters Date Type Department Care Team (Late st Contact Info) Description 03/02/2025 11:40 AM EDT Office Visit [facility] [place] [facility] [address] [place] [address] [place] [address] [place] [address] 03/02/2025 12:45 PM EDT Procedure visit [facility] [address] [facility] [address] [place] [address] Samm Ledesma, PIE DOUGH ROLLER [address] [facility] [facility] [address] [place], [place] [id number] 03/10/2025 12:30 PM EDT Appointment [facility] [place], [place] [id number] 03/10/2025 1:00 PM EDT Appointment [facility] [place] [address] Tacho Echavarria MD [address] [place] [id number] 04/29/2025 9:15 AM EDT Appointment [facility] [place] [address] Batool Celis MD [address] [place] [address] CANCER CARE [place], [place] [id number] 05/19/2025 2:15 PM EST Office Visit [facility] [address] [facility] [address] [place] [address] Sin Tran MD [address] [place] [address] 08/12/2025 10:40 AM EST Appointment [facility] [place] [address] Matt Ulrich MD [address] [place] [address] [place] [address] documented as of this encounter Goals Goal [...] documented as of this encounter Care Teams Laboratory Phlebotomist Relationship Specialty [place] [address] [place] [id number] PCP - General 06/21/10 Arlyn Schmidt MD [address] [place], [place] [phone] Consulting Physician Internal Medicine-Endocrinology, Diabetes & Metabolism 11/28/20 Tacho Echavarria MD 1 [place] [address] Internal Medicine-Medical Oncology 11/12/23 Matt Ulrich MD 1 [place] [address] Surgery-Surgical Oncology 12/04/23 Eze Brock Pastoral Care 12/13/23 Annette Walker, ARACELI Sole Inker 05/13/24 Batool Celis MD 1 [facility] [place] [address] Radiation Oncologist Radiology-Radiation Oncology 06/08/24 documented as of this encounter
--- OUTSIDE RECORDS SUMMARY | 2025-02-19 14:04 | XMS_ITS | Encounter Summary ---
Author [place] [address] Care Team Providers Care Video Game Programmer Name Role Phone Chetna Cedeno MD Primary Care Provider [phone] Arlyn Schmidt MD Unavailable [phone] Tacho Echavarria MD Unavailable [phone] Matt Ulrich MD Unavailable [phone] Eze Brock Unavailable Annette Walker Unavailable [phone] Batool Celis MD Unavailable [phone] Reason for Visit * Reason Onset Date Comments Integrative Oncology Referral 02/05/2025 Encounter Details Date Type Department Care Team (Late st Contact Info) Description 02/05/2025 Telephone [facility] INT ONC [place], [place] [id number] Narda Vickers, Clerical Staff Integrative Oncology Referral [...] th e electric, gas, oil, or water [employer] threatened to shut off services in your [...] Date Recorded PHQ-2 Total Score 5 07/07/2024 [facility] of Occupat ional Health - Occupational Stress [...] a care home (including now)? No 11/07/2023 [facility] IP Transportation Answer D ate Recorded [...] Clerical Staff - 02/05/2025 11:38 AM EDT Ecrebo message sent with Integrative Oncology information and newsletter. Narda documented in this encounter Plan of Treatment Upcoming Encounters Date Type Department Care Team (Late st Contact Info) Description 03/02/2025 11:40 AM EDT Office Visit [facility] [address] [place] [address] [place] [address] [place] [address] 03/02/2025 12:45 PM EDT Procedure visit [facility] [address] [place] [address] Samm Ledesma, WELDER ASSISTANT [address] [facility] [address] [place] [address] 03/10/2025 12:30 PM EDT Appointment [place] [address] 03/10/2025 1:00 PM EDT Appointment [facility] [place] [address] Tacho Echavarria MD [address] [place] [address] 04/29/2025 9:15 AM EDT Appointment [facility] RAD ONC [place], [place] [id number] Batool Celis MD 1 [facility] [place] [address] 05/19/2025 2:15 PM EST [facility] [address] [facility] 401 [facility] 1D [place] [address] Sin Tran MD [facility] [place] [address] 08/12/2025 10:40 AM EST Appointment [facility] [place] One [facility] [place] [address] Matt Ulrich MD 20 [facility] 254 [place] [address] documented as of this encounter [...] documented as of this encounter Care Teams Video Game Programmer Relationship Specialty [place] [address] [place] [address] PCP - General 06/21/10 Arlyn Schmidt MD [address] [place] [address] Consulting Physician Internal Medicine-Endocrinology, Diabetes & Metabolism 11/28/20 Tacho Echavarria MD 1 [place] [address] Internal Medicine-Medical Oncology 11/12/23 Matt Ulrich MD 1 [place] [address] Surgery-Surgical Oncology 12/04/23 Eze Brock Pastoral Care 12/13/23 Annette Walker, ARACELI Marble Installer 05/13/24 Batool Celis MD 1 [facility] [place] [address] Radiation Oncologist Radiology-Radiation Oncology 06/08/24 documented as of this encounter
--- OUTSIDE RECORDS SUMMARY | 2025-02-19 14:04 | XMS_ITS | Encounter Summary ---
Author Organization [place] [address] Care Team Providers Care Flight Attendant/Inflight Supervisor Name Role Phone Chetna Cedeno MD Primary Care Provider [phone] Arlyn Schmidt MD Unavailable [phone] Tacho Echavarria MD Unavailable [phone] Matt Ulrich MD Unavailable [phone] Eze Brock Unavailable Annette Walker Unavailable [phone] Batool Celis MD Unavailable [phone] Reason for Visit * Reason Onset Date Comments Other 02/03/2025 Pain pump meds Encounter Details Date Type Department Care Team (Late st Contact Info) Description 02/03/2025 Telephone [facility] [address] [address] Sin Tran MD [address] [place] [address] Other (Pain pump meds) Social History [...] a skilled nursing (including now)? No 11/07/2023 [facility] IP [...] 11:40 AM EDT Office Visit [facility] [place] [address] [place] [address] [place] [address] [place] [address] 03/02/2025 12:45 PM EDT Procedure visit [facility] [address] [facility] [address] [place] [address] Samm Ledesma, SHIFT PRODUCTION ASSOCIATE [address] [facility] [address] [place] [address] 03/10/2025 12:30 PM EDT Appointment [place] [address] 03/10/2025 1:00 PM EDT Appointment [facility] [place] [address] Tacho Echavarria MD [address] [place] [address] 04/29/2025 9:15 AM EDT Appointment [facility] RAD ONC [place], [place] [phone] Batool Celis MD 1 [facility] [place] [address] 05/19/2025 2:15 PM EST Office Visit [address] [address] Sin Tran MD [address] [place] [address] 08/12/2025 10:40 AM EST Appointment [facility] Wellness [facility] [place] [phone] Matt Ulrich MD 20 [facility] 254 [place] [id number] documented as of this encounter Goals Goal [...] as of this encounter Care Teams Flight Attendant/Inflight Supervisor Relationship Specialty [place] [address] [place] [address] PCP - General 06/21/10 Arlyn Schmidt MD [address] [place], [place] [phone] Consulting Physician Internal Medicine-Endocrinology, Diabetes & Metabolism 11/28/20 Tacho Echavarria MD 1 [place] [address] Internal Medicine-Medical Oncology 11/12/23 Matt Ulrich MD 1 [place], [place] [phone] Surgery-Surgical Oncology 12/04/23 Eze Brock Pastoral Care 12/13/23 Annette Walker, ARACELI Section Housekeeper 05/13/24 Batool Celis MD 1 [facility] [place], [place] [address] Radiation Oncologist Radiology-Radiation Oncology 06/08/24 documented as of this encounter
--- OUTSIDE RECORDS SUMMARY | 2025-02-19 14:04 | XMS_ITS | Encounter Summary ---
Author Organization [place] [address] Care Team Providers Care Home Organizer Name Role Phone Kit Cedeno MD Primary Care Provider [phone] Arlyn Schmidt MD Unavailable [phone] Cheryl Nair RN Unavailable [phone] Tacho Echavarria MD Unavailable [phone] Matt Ulrich MD Unavailable [phone] Hilary Clemens RN Unavailable Unavaila Eez Caro Unavailable Shila Albrecht RN Unavailable Unavail able Cheyanne To RN Unavailable Unavailabl Rayna Wong RN Unavailable Unavailab Shilpa Olivarez RN Unavailable [phone] Tulio Duong RN Unavailable Unavailable Yaquelin Weaver RN Unavailable Unavailable Pam Wang RN Unavailable Unavailable Jazmín Nair RN Unavailable Unavailable Fidel Rainey RN Unavailable Unavailable Cheryl Nair RN Unavailable [phone] Ophelia Lala RN Unavailable Glo Lee RN Unavailable Unavailab Sanam Evans ORDER PICKER/ASSEMBLER Unavailable Unavailable Hilary Clemens RN Unavailable Unavaila Ruthy Clayton RN Unavailable Unavailable Rayna Partida RN Unavailable Unavailab Artur Nelson RN Unavailable Unavailable Annette Walker ORDER PICKER/ASSEMBLER Unavailable [phone] Emmie Crain RN Unavailable Unavailable Brigida Enriquez RN Unavailable Unavailable Fidel Rainey RN Unavailable Unavailable Batool Celis MD Unavailable [phone] Encounter Details Date Type Department Care Team (Late st Contact Info) Description 10/25/2023 Orders Only [facility] [place] [address] Diane Ellis MD 1 [place] [address] Social History Tobacco Use Types [...] 11:40 AM EDT Office Visit [facility] [place] [address] [place] [address] [place] [address] [place] [address] 03/02/2025 12:45 PM EDT Procedure visit [facility] [address] [facility] [address] [place] [address] Samm Ledesma, MIXING MACHINE ATTENDANT [address] [facility] [address] [place] [address] 03/10/2025 12:30 PM EDT Appointment [facility] [place], [place] [phone] 03/10/2025 1:00 PM EDT Appointment [facility] Medical Oncology [place], [place] [phone] Tacho Echavarria MD [address] [place] [id number] 04/29/2025 9:15 AM EDT Appointment [facility] RAD ONC [place], [place] [phone] Batool Celis MD 1 [facility] [place] [address] 05/19/2025 2:15 PM EST Office Visit [facility] [address] [place] [address] [address] [place] [address] Sin Tran MD [address] [place] [address] 08/12/2025 10:40 AM EST Appointment [facility] Women's Wellness [place] [facility] [place] [address] Matt Ulrich MD 20 [facility] 254 [place], [place] [phone] documented as of this encounter Goals Goal [...] EDT) 10/25/2023 10:4 4 AM EDT Narrative [facility] - 11/06/2023 7:12 PM EDT Requesting Provider: KIT Womack Specimen = [id number] us Diane Ellis MD PATHOLOGY ORDERABLES Final Resul t [facility] 1 [place], [place] [phone] documented in this encounter Visit Diagnoses Not on filedocumented in this encounter Additional Health Concerns Infection Onset Date Last Indicated Resolved Time COVID-19 09/04/2024 09/04/2024 09/24/2024 10:1 2 PM EDT documented as of this encounter Care Teams Home Organizer Relationship Specialty [place] [address] [place] [address] PCP - General 06/21/10 Arlyn Schmidt MD [address] [place] [address] Consulting Physician Internal Medicine-Endocrinolog y, Diabetes & Metabolism 11/28/20 Cheryl Nair, RN Oncology Nurse Navigator 10/29/2302/05 Tacho Echavarria MD 1 [place], [place] [address]17 Internal Medicine-Medical Oncology 11/12/23 Matt Ulrich MD 1 [place] [address] Surgery-Surgical Oncology 12/04/23 Hilary Clemens, RN Registered [...] Therapy 04/03/24 04/03/24 Sanam Murray, [facility] Working Manager 04/10/24 07/30/24 Hilary Clemens, RN Registered Nurse Infusion Therapy 04/21/24 04/21/24 Ruthy Walker RN Registered Nurse Infusion Therapy 04/24/24 04/24/24 Rayna Partida, RN Registered Nurse Infusion Clinic 05/01/24 05/01/24 Artur Roberts RN Registered Nurse Infusion Therapy 05/07/24 05/07/24 Annette Walker, ORDER PICKER/ASSEMBLER Working Manager 05/13/24 Emmie Crain, RN Registered Nurse Infusion Therapy 05/14/24 05/14/24 Brigida Enriquez, RN Registered Nurse Infusion Clinic 05/21/24 05/21/24 Fidel Rainey, RN Registered Nurse Infusion Therapy 05/28/24 05/28/24 Batool Celis MD [address] [place] [address] [place] [address] Radiation Oncologist Radiology-Radiation Oncology 06/08/24 documented as of this encounter
--- OUTSIDE RECORDS SUMMARY | 2025-02-19 14:04 | XMS_ITS | Encounter Summary ---
Author Organization [place] [address] Care Team Providers Care Sleeve Separator Name Role Phone Chetna Cedeno MD Primary Care Provider [phone] Arlyn Schmidt MD Unavailable [phone] Tacho Echavarria MD Unavailable [phone] Matt Ulrich MD Unavailable [phone] Eze Brock Unavailable Annette Walker Unavailable [phone] Batool Celis MD Unavailable [phone] Reason for Visit * Reason Onset Date Comments Symptom Call 02/05/2025 lightheaded / he adache Encounter Details Date Type Department Care Team (Late st Contact Info) Description 02/05/2025 [facility]phone [facility] [place], [place] [id number] Tacho Echavarria MD [address] [place] [address] [phone] Symptom Call (lightheaded / headache ) Social [...] in a correction (including now)? No 11/07/2023 [facility] IP Transportation Answer D [...] Rates 4/10. Went to ER in [facility] last week r/t diarrhea, K was 2.5 [...] seen at: [facility] Preferred call back number: [phone] Explained to the caller, if this is a medical emergency please call 911 or go to the nearest emergency room. documented in this encounter Plan of Treatment Upcoming Encounters Date Type Department Care Team (Late st Contact Info) Description 03/02/2025 11:40 AM EDT Office Visit [facility] [address] [place] [address] [place] [address] [place] [address] 03/02/2025 12:45 PM EDT Procedure visit [facility] [address] [place] [address] Samm Ledesma, SEASONAL CUSTOMER SERVICE ASSOCIATE [address] [place] [address] 03/10/2025 12:30 PM EDT Appointment [place] [address] 03/10/2025 1:00 PM EDT Appointment [facility] [place], [place] [phone] Tacho Echavarria MD [address] [place] [address] [id number] 04/29/2025 9:15 AM EDT Appointment [place] [address] Batool Celis MD [address] [place] [address] DR CANCER CARE [place], [place] [phone] 05/19/2025 2:15 PM EST Office Visit [address] [address] Sin Tran MD [address] [place] [address] 08/12/2025 10:40 AM EST Appointment [facility] [place] [address] Matt Ulrich MD [address] [place] [address] documented as of this encounter Goals Goal [...] documented as of this encounter Care Teams Sleeve Separator Relationship Specialty [place] [address] [place] [address] PCP - General 06/21/10 Arlyn Schmidt MD [address] [place], [place] [phone] Consulting Physician Internal Medicine-Endocrinology, Diabetes & Metabolism 11/28/20 Tacho Echavarria MD 1 [place] [address] Internal Medicine-Medical Oncology 11/12/23 Matt Ulrich MD 1 [place] [address] Surgery-Surgical Oncology 12/04/23 Eze Brock Pastoral Care 12/13/23 Annette Walker MSW Rn Chronic 05/13/24 Batool Celis MD [address] [place] [address] [place] [address] Radiation Oncologist Radiology-Radiation Oncology 06/08/24 documented as of this encounter
--- OUTSIDE RECORDS SUMMARY | 2025-02-19 14:04 | XMS_ITS | Encounter Summary ---
Author [place] [address] Care Team Providers Care Memorandum Statement Clerk Name Role Phone Chetna Cedeno MD Primary Care Provider [phone] Arlyn Schmidt MD Unavailable [phone] Tacho Echavarria MD Unavailable [phone] Matt Ulrich MD Unavailable [phone] Eze Brock Unavailable Annette Walker Unavailable [phone] Batool Celis MD Unavailable [phone] Encounter Details Date Type Department Care Team (Late st Contact Info) Description 02/15/2025 Telephone [facility] On[facility] [place], [place] [phone] Tacho Echavarria MD [address] [place] [address] [phone] Social History Tobacco Use Types Packs/Day Years [...] Date Recorded PHQ-2 Total Score 5 07/07/2024 [facility] [place] of Occupat ional Health - Occupational Stress [...] in a snf (including now)? No 11/07/2023 [facility] IP [...] Assessment Author No 12/06/2022 2:08 PM Macarena Hensno CCMA * Does this person have difficulty [...] air conditioning unit will be at the policyholder information clerk desk on the second floor. Copy also placed in scan pile documented in this encounter Plan of Treatment Upcoming Encounters Date Type Department Care Team (Late st Contact Info) Description 03/02/2025 11:40 AM EDT Office Visit [facility] [address] [place] [address] [place] [address] [place] [address] 03/02/2025 12:45 PM EDT Procedure visit [facility] [address] [place] [address] Samm Ledesma APRN [address] [place] [address] 03/10/2025 12:30 PM EDT Appointment [place] [address] 03/10/2025 1:00 PM EDT Appointment [facility] [place] [address] Tacho Echavarria MD [address] [place] [address] 04/29/2025 9:15 AM EDT Appointment [facility] [place] [address] Batool Celis MD [address] [facility] [facility] [place] [address] 05/19/2025 2:15 PM EST Office Visit [facility] [address] [place] [address] Sin Tran MD [address] [place] [address] [place] [address] 08/12/2025 10:40 AM EST Appointment [facility] [place] [address] Matt Ulrich MD [address] [facility] 254 [place] [address] documented as of this encounter Goals Goal [...] documented as of this encounter Care Teams Memorandum Statement Clerk Relationship Specialty [place] [address] [place] [address] PCP - General 06/21/10 Arlyn [place] MD [address] [place] [address] Consulting Physician Internal Medicine-Endocrinology, Diabetes & Metabolism 11/28/20 Tacoh Echavarria MD 1 [place], [place] [phone] Internal Medicine-Medical Oncology 11/12/23 Matt Ulrich MD 1 [place] [address] Surgery-Surgical Oncology 12/04/23 Eze Brock Pastoral Care 12/13/23 Annette Walker, ARACELI Sound Cutter 05/13/24 Batool Celis MD 1 [facility] [place] [address] Radiation Oncologist Radiology-Radiation Oncology 06/08/24 documented as of this encounter
--- OUTSIDE RECORDS SUMMARY | 2025-02-19 14:04 | XMS_ITS | Encounter Summary ---
Author Organization [place] [address] Care Team Providers Care Erp Pm Name Role Phone Kit Cedeno MD Primary Care Provider [phone] Arlyn [place] MD Unavailable [phone] Cheryl Nair RN Unavailable [phone] Tacho Echavarria MD Unavailable [phone] Matt Ulrich MD Unavailable [phone] Hilary Clemens RN Unavailable Unavaila Eze Caro Unavailable Shila Albrecht RN Unavailable Unavail able Cheyanne To RN Unavailable Unavailabl Rayna Wong RN Unavailable Unavailab Shilpa Olivarez RN Unavailable [phone] Tulio Duong RN Unavailable Unavailable Yaquelin Weaver RN Unavailable Unavailable Pam Wang RN Unavailable Unavailable Jazmín Nair RN Unavailable Unavailable Fidel Rainey RN Unavailable Unavailable Cheryl Nair RN Unavailable [phone] Ophelia Lala RN Unavailable Glo Lee RN Unavailable Unavailab Sanam Evans SOD FARMER Unavailable Unavailable Hilary Clemens RN Unavailable Unavaila Ruthy Clayton RN Unavailable Unavailable Rayna Partida RN Unavailable Unavailab Artur Nelson RN Unavailable Unavailable Annette Walker SOD FARMER Unavailable [phone] Emmie Crain RN Unavailable Unavailable Brigida Enriquez RN Unavailable Unavailable Fidel Rainey RN Unavailable Unavailable Batool Celis MD Unavailable [phone] Encounter Details Date Type Department Care Team (Late st Contact Info) Description 10/25/2023 Orders Only [facility] [address] [facility] [place] [address] Diane Ellis MD 1 [place] [address] Social History Tobacco Use Types [...] 11:40 AM EDT Office Visit [facility] [address] [place] [address] [place] [address] [place] [address] 03/02/2025 12:45 PM EDT Procedure visit [facility] [address] [place] [address] Samm Ledesma, DIRECTOR INBOUND SALES [address] [place] [address] 03/10/2025 12:30 PM EDT Appointment [facility] [place], [place] [phone] 03/10/2025 1:00 PM EDT Appointment [facility] Oncology [place], [place] [phone] Tacho Echavarria MD [address] [place] [address] [phone] 04/29/2025 9:15 AM EDT Appointment [facility] RAD ONC [place], [place] [phone] Batool Celis MD 1 [facility] [place] [address] 05/19/2025 2:15 PM EST Office Visit [facility] [address] [place] [address] [address] [facility] 1D [place] [address] Sin Tran MD [address] [place] [address] 08/12/2025 10:40 AM EST Appointment [facility] [place] [facility] [place] [address] Matt Ulrich MD 20 [facility] 254 [place], [place] [phone] documented as of this encounter Goals Goal [...] 10/25/2023 10:4 4 AM EDT Narrative [facility] - 11/01/2023 3:02 PM EDT Requesting Provider: KIT Womack Specimen = [id number] us Diane Ellis MD PATHOLOGY ORDERABLES Final Resul t [facility] 1 [place], [place] [phone] documented in this encounter Visit Diagnoses Not on filedocumented in this encounter Additional Health Concerns Infection Onset Date Last Indicated Resolved Time COVID-19 09/04/2024 09/04/2024 09/24/2024 10:1 2 PM EDT documented as of this encounter Care Teams Erp Pm Relationship Specialty [place] [address] [place] [address] PCP - General 06/21/10 Arlyn [place] MD [address] [place] [address] Consulting Physician Internal Medicine-Endocrinolog y, Diabetes & Metabolism 11/28/20 Cheryl Nair RN Oncology Nurse Navigator 10/29/2302/05 Tacho Echavarria MD 1 [place], [place] [phone] Internal Medicine-Medical Oncology 11/12/23 Matt Ulrich MD 1 [place], [place] [phone] Surgery-Surgical Oncology 12/04/23 Hilary Clemens, RN Registered [...] Nurse Infusion Therapy 04/03/24 04/03/24 Sanam Murray, [facility] Zoo Director 04/10/24 07/30/24 iHlary Clemens, RN Registered Nurse Infusion Therapy 04/21/24 04/21/24 Ruthy Walker RN Registered Nurse Infusion Therapy 04/24/24 04/24/24 Rayna Partida, RN Registered Nurse Infusion Clinic 05/01/24 05/01/24 Artur Roberts RN Registered Nurse Infusion Therapy 05/07/24 05/07/24 Annette Walker, SOD FARMER Zoo Director 05/13/24 Emmie Crain, RN Registered Nurse Infusion Therapy 05/14/24 05/14/24 Brigida Enriquez, RN Registered Nurse Infusion Clinic 05/21/24 05/21/24 Fidel Rainey, RN Registered Nurse Infusion Therapy 05/28/24 05/28/24 Batool Celis MD [address] [place] [address] [place] [address] Radiation Oncologist Radiology-Radiation Oncology 06/08/24 documented as of this encounter
--- OUTSIDE RECORDS SUMMARY | 2025-02-19 14:04 | XMS_ITS | Encounter Summary ---
Author Organization [place] [address] Care Team Providers Care Cnc Lathe Machine Operator Name Role Phone Chetna Cedeno MD Primary Care Provider [phone] Arlyn [place] MD Unavailable [phone] Tacho Echavarria MD Unavailable [phone] Matt Ulrich MD Unavailable [phone] Eze Brock Unavailable Shilpa Clien RN Unavailable [phone] Cheryl Nair RN Unavailable [phone] Ophelia Lala RN Unavailable Glo Lee RN Unavailable Unavailab Sanam Evans ORACLE BPM CONSULTANT Unavailable Unavailable Hilary Clemens RN Unavailable Unavaila Ruthy Clayton RN Unavailable Unavailable Rayna Partida RN Unavailable Unavailab Artur Nelson RN Unavailable Unavailable Annette Walker ORACLE BPM CONSULTANT Unavailable [phone] Emmie Crain RN Unavailable Unavailable Brigida Enriquez RN Unavailable Unavailable Fidel Rainey RN Unavailable Unavailable Batool Celis MD Unavailable [phone] Encounter Details Date Type Department Care Team (Late st Contact Info) Description 03/18/2024 Lab Requisition [facility] [place] [address] Provider, Unknown Malignant neoplasm of unspecified site [...] in a long-term (including now)? No 11/07/2023 Education Answer Date [...] 11:40 AM EDT Office Visit [facility] [address] [place] [address] [place] [address] [place] [address] 03/02/2025 12:45 PM EDT Procedure visit [facility] [address] [place] [address] Samm Ledesma, ARTIFICIAL BREEDING RANCH SUPERVISOR [address] [facility] [facility] [address] [place] [address] 03/10/2025 12:30 PM EDT Appointment [facility] [place], [place] [phone] 03/10/2025 1:00 PM EDT Appointment [facility] On[facility] [place], [place] [phone] Tacho Echavarria MD [address] [place] [address] [phone] 04/29/2025 9:15 AM EDT Appointment [facility] RAD ONC [place], [place] [phone] Batool Celis MD [address] [place] [address] CANCER CARE [place], [place] [phone] 05/19/2025 2:15 PM EST Office Visit [facility] [address] [place] [address] [address] [place] [address] Sin Tran MD [address] [place] [address] 08/12/2025 10:40 AM EST Appointment [facility] Women's Wellness [place] One [facility] [place] [address] Matt Ulrich MD [address] [place] [address] DR MUSA H[place]ed [place] [address] documented as of this encounter Goals Goal [...] EDT) CASE REPORT Surgical Pathology Report Case: [id number] Authorizing Provider: Provider, Unknown Collected: 03/18/2024 1327 Ordering Location: [facility] Received: 03/18/2024 1327 Pathologist: Diane Ellis MD Specimen: Breast, Right, Request for case [id number] slides to [facility] Pathology. 05/04/2024 1:26 PM EDT [facility] FINAL DIAGNOSIS Results will be scanned in this case as an addendum. 05/04/2024 1:26 PM EDT [facility] at 1329 EDT EMBEDDED IMAGES 05/04/2024 1:26 PM EDT [facility] ADDENDUM Refer to [facility] Surgical Pathology Report. 05/04/2024 1:26 PM EDT [facility] Addendum electronically signed by Diane Ellis MD on 05/04/2024 at 1326 EDT Tissue RIGHT BREAST STRUCTURE / Unknown 03/18/2024 1:27 PM EDT 03/18/2024 1:27 PM EDT us Unknown Provider PATHOLOGY ORDERABLES Edited Res ult - Final [facility] 1 [place] [address] documented in this encounter Visit Diagnoses Diagnosis Malignant neoplasm of unspecified site of right female breast (HCC) documented in this encounter Additional Health Concerns Infection Onset Date Last Indicated Resolved Time COVID-19 09/04/2024 09/04/2024 09/24/2024 10:1 2 PM EDT Assessment Noted Time PHQ-9 Depression Total Score: 12 024 12:00 PM EDT documented as of this encounter Care Teams Cnc Lathe Machine Operator Relationship Specialty [place] [address] [place] [address] PCP - General 06/21/10 Arlyn Schmidt MD [facility] [place] [address] Consulting Physician Internal Medicine-Endocrinolog y, Diabetes & Metabolism 11/28/20 Tacho Echavarria MD [address] [place] [address] Internal Medicine-Medical Oncology 11/12/23 Matt Ulrich MD [address] [place] [address] Surgery-Surgical Oncology 12/04/23 Eze Brock Pastoral Care 12/13/23 Shilpa Cline, RN Oncology Nurse Navigator 02/04/2403/09 Cheryl Nair, RN Oncology Nurse Navigator 03/25/2412/13 Ophelia Lala, RAUL Registered Nurse Infusion Therapy 03/27/24 03/27/24 Glo Lee, RN Registered Nurse Infusion Therapy 04/03/24 04/03/24 Sanam Murray, ORACLE BPM CONSULTANT Corporate Wellness Coordinator 04/10/24 07/30/24 Hilary Clemens, RN Registered Nurse Infusion Therapy 04/21/24 04/21/24 Ruthy Walker RN Registered Nurse Infusion Therapy 04/24/24 04/24/24 Rayna Partida, RN Registered Nurse Infusion Clinic 05/01/24 05/01/24 Artur Roberts RN Registered Nurse Infusion Therapy 05/07/24 05/07/24 Annette Walker, ORACLE BPM CONSULTANT Corporate Wellness Coordinator 05/13/24 Emmie Crain, RN Registered Nurse Infusion Therapy 05/14/24 05/14/24 Brigida Enriquez, RN Registered Nurse Infusion Clinic 05/21/24 05/21/24 Fidel Rainey, RN Registered Nurse Infusion Therapy 05/28/24 05/28/24 Batool Celis MD 1 [facility] [place] [address] Radiation Oncologist Radiology-Radiation Oncology 06/08/24 documented as of this encounter
[2025-02-19 14:08] VITALS: BP 119/74; PULSE 71; RESP 15; TEMP 36.9; O2SAT 98; BMI 32.1
--- NOTE | 2025-02-19 14:17 | ED_ITS ---
<Statement entered by Sheridan Yanez DO - 02/22/25 17:44> I was consulted by the NIVIA, and we discussed the complexity of problems being addressed. I approve the treatment and management plan for this patient's care in the emergency department, thus performing a substantial portion of the medical decision making. Sheridan Yanez DO Discharge Plan Disposition Patient Disposition: Home, Self-Care Prescriptions Prescriptions: No Action exemestane 25 mg tablet 25 mg PO DAILY Qty: 30 5RF oxybutynin chloride 5 mg tablet extended release 24hr 5 mg PO DAILY Qty: 30 0RF duloxetine 30 mg capsule,delayed release(DR/EC) 30 mg PO DAILY Qty: 30 0RF Xarelto 15 mg tablet 15 mg PO BIDWMEAL Qty: 10 0RF ondansetron 8 mg tablet,disintegrating 8 mg PO TIDP PRN (Reason: Nausea And Vomiting) ropinirole 0.25 mg tablet 0.25 mg PO HS Verzenio 100 mg tablet 100 mg PO BID Nurtec ODT 75 mg tablet,disintegrating 75 mg PO DAILYP PRN (Reason: Migraine Headache) olanzapine 5 mg Tablet 5 mg PO DAILY losartan 50 mg tablet 50 mg PO DAILY omeprazole 40 mg capsule,delayed release(DR/EC) 40 mg PO DAILY ergocalciferol (vitamin D2) 1,250 mcg (50,000 unit) capsule 1,250 mcg PO WEEKLY Qulipta 60 mg tablet 60 mg PO DAILY tramadol 50 mg Tablet 50 mg PO Q6HP PRN (Reason: Moderate Pain (Scale Score 5-6)) metronidazole 500 mg tablet 500 mg PO BID 5 Days Qty: 10 0RF Referrals Follow up/Referrals: Ayush Marrero MD [Primary Care Provider, Family Practice] - See instructions Activity Restrictions/Add. Instructions Additional Instructions/Restrictions: Today you were evaluated in the emergency department, your workup was overall unremarkable. I spoke to Dr. Short, who will contact you early next week for follow-up and biopsy. Please take [id number] pain relief and return to the ED for worsening of condition. Clinical Impressions Clinical Impression: Acute chest wall pain Stand Alone Forms Stand Alone Forms: Work/School Release Instructions Patient Instructions: DI for Atypical Chest Pain Print Language Print Language: Setswana Discharge ED Provider: Sheridan Yanez General Adult HPI General Chief complaint: Dizziness Stated complaint: nauseated,vomitting,light headed Time Seen by Provider: 02/19/25 14:00 History of Present Illness HPI narrative: patient is a 59-year-old female PMHx breast cancer with mastectomy, hypertension, restless leg, hypokalemia who presents to the ED with complaints of right upper quadrant abdominal pain and chest pain. Patient had her gallbladder removed in the past, history of appendectomy. Patient is experiencing nausea and vomiting, unable to keep anything down today. She is concerned that she is dehydrated. Currently taking oral chemo & has a port. Related Data Home Medications ?Medication ?Instructions ?Recorded ?Confirmed abemaciclib 100 mg tablet 100 mg PO BID 01/31/2502/17 (Verzenio) atogepant 60 mg tablet (Qulipta) 60 mg PO DAILY 02/17/25 ergocalciferol (vitamin D2) 1,250 1,250 mcg PO WEEKLY 01/31/25 02/17/25 mcg (50,000 unit) capsule losartan 50 mg tablet 50 mg PO DAILY 01/31/2502/05 olanzapine 5 mg tablet 5 mg PO DAILY 01/31/2502/17 omeprazole 40 mg capsule,delayed 40 mg PO DAILY 02/17/25 release ondansetron 8 mg disintegrating 8 mg PO TIDP PRN Nause a And 01/31/25 02/17/25 tablet Vomiting rimegepant 75 mg disintegrating 75 mg PO DAILYP PRN Mi graine 01/31/25 02/17/25 tablet (Nurtec ODT) Headache ropinirole 0.25 mg tablet 0.25 mg PO HS 01/31/2502/17 tramadol 50 mg tablet 50 mg PO Q6HP PRN Moderate P ain 01/31/25 02/17/25 (Scale Score 5-6) Previous Rx's ?Medication ?Instructions ?Recorded metronidazole 500 mg tablet 500 mg PO BID 5 days #10 t abs 02/03/25 rivaroxaban 15 mg tablet (Xarelto) 15 mg PO BIDWMEAL # 10 tabs 02/10/25 exemestane 25 mg tablet 25 mg PO DAILY #30 tabs 02/05 09/29 duloxetine 30 mg capsule,delayed 30 mg PO DAILY #30 ca ps 02/19/25 release oxybutynin chloride 5 mg 5 mg PO DAILY #30 tabs 02/19 tablet,extended release 24 hr Allergies Allergy/AdvReac Type Severity Reaction Status Date / Time amoxicillin Allergy Severe Hives Verified 02/17/25 11:32 cefazolin Allergy Severe Hives Verified 02/17/25 11:32 hydromorphone (From Dilaudid) Allergy Intermediate Rash Verified 02/17/25 11:32 morphine Allergy Mild Rash Verified 02/17/25 11:32 lactose Allergy Difficulty Verified 02/17/25 11:32 Swallowing tree nut Allergy Anaphylaxis Verified 02/17/25 11:32 PFSH [facility] Disclaimer: The information contained in this section may have been updated after the patient was seen, as this information can be updated by other users. Medical History Migraine headache Pulmonary embolism Anxiety and depression GERD (gastroesophageal reflux disease) Hypertension Restless leg syndrome Vitamin D deficiency Breast cancer Social History Smoking Status: Never smoker alcohol intake: former current occupational status: other Travel in the last 8 weeks?: Inside the [place] Have you lived/traveled outside US in past 30 days?: No Contact w/someone who lives/traveled outside US past 30 days?: No Exposure to someone with infectious disease in past 14 days?: No Do you have a fever (greater than 100.4 F or 38 C)?: No Have you tested positive for COVID-19?: No Exposed to someone with COVID-19 in past 14 days?: No Do you have a sore throat?: No Do you have a cough?: No Do you have any weakness?: No Do you have any diarrhea?: No Are you experiencing any unusual bleeding?: No Do you have any muscle aches/pain?: No Do you have any abdominal pain?: No Are you experiencing loss of taste or smell?: No Other Medical History Have you received the Flu Vaccine for this season: No Have you received the Pneumonia Vaccine: No ROS Obtained: Yes Systems reviewed as appropriate & no additional complaints except as documented Physical Exam General General appearance: alert Head Head exam: atraumatic Eye Eye exam: Present PERRL ENT ENT exam: Present normal exam Neck Neck exam: Present full ROM Respiratory Respiratory exam: Present normal lung sounds bilaterally; Absent respiratory distress Cardiovascular Cardiovascular exam: Present regular rate Abdominal Exam Abdominal exam: Present soft; Absent distention or tenderness Extremities Exam Extremities exam: Present full ROM Neurological Exam Neurological exam: Present alert and oriented X3 Psychiatric Psychiatric exam: Present normal affect Skin Skin exam: Present warm and other (Mild redness around mastectomy site, expected from radiation) Medical Decision Making Medical Records Screening: Per USPSTF and CDC recommendations, given the prevalence of disease in our region, it is our hospital?s policy to screen for HIV and viral Hepatitis for all patients aged 18 and over and those with ongoing risk factors. Josh Inquiry Pt receiving controlled substance: No Vital Signs: 02/19/25 14:08 02/19/25 14:25 02/19/25 16:00 Temperature 98.5 F 98.5 F Temperature Source Oral Oral Pulse Rate 71 61 Pulse Rate [Right] 71 Respiratory Rate 15 15 17 Blood Pressure 119/74 123/74 Blood Pressure [Right Arm] 119/74 Blood Pressure Mean [Right Arm] 89 Blood Pressure Source Automatic Cuff Blood Pressure Source [Right Arm] Automatic Cuff Blood Pressure Position Supine Blood Pressure Position [Right Arm] Supine 02 Sat by Pulse Oximetry 98 98 99 Oxygen Delivery Method Room Air Room Air Room Air 02/19/25 16:39 Temperature 98.5 F Temperature Source Oral Pulse Rate 70 Pulse Rate [Right] Respiratory Rate 18 Blood Pressure 128/77 Blood Pressure [Right Arm] Blood Pressure Mean [Right Arm] Blood Pressure Source Automatic Cuff Blood Pressure Source [Right Arm] Blood Pressure Position Blood Pressure Position [Right Arm] 02 Sat by Pulse Oximetry Oxygen Delivery Method Room Air Lab Data Lab Results 02/19/25 14:25: WBC 6.2, RBC 3.22 L, Hgb 10.2 L, Hct 29.6 L, MCV 91.9, MCH 31.7 H, MCHC 34.5, RDW 14.1, Plt Count 267, MPV 8.8, Neut % (Auto) 73.3, Lymph % (Auto) 18.5, [place] % (Auto) 6.0, Eos % (Auto) 1.1, Baso % (Auto) 0.8, Neut # (Auto) 4.5, Lymph # (Auto) 1.1, [place] # (Auto) 0.4, Eos # (Auto) 0.1, Baso # (Auto) 0.1, Sodium 136, Potassium 4.0, Chloride 107, Carbon Dioxide 21 L, Anion Gap 12.0, BUN 10, Creatinine 0.80, Estimated Creat Clear 101, Estimated GFR 74, Est GFR ( Amer) 89, Glucose 120 H, Calcium 8.9, Total Bilirubin 0.6, AST 30, ALT 17, Alkaline Phosphatase 102, Troponin I < 0.01, Total Protein 6.6, Albumin 4.0, Globulin 2.6, Albumin/Globulin Ratio 1.5, Lipase 96, HCV Ab DEBRA w/Rflx PCR Qn Negative 02/19/25 16:23: Urine Color Yellow, Urine Appearance Clear, Urine pH 6.5, Ur Specific [place] <= 1.005, Urine Protein Negative, Urine Glucose (UA) Negative, Urine Ketones Negative, Urine Blood Negative, Urine Nitrate Negative, Urine Bilirubin Negative, Urine Urobilinogen 0.2, Ur Leukocyte Esterase Negative 02/19/25 14:25 02/19/25 14:25 Orders (Tests/Meds): ED MEDICATIONS Discontinued Medications Generic Name Dose Route Start Last Admin Trade Name Freq PRN Reason Stop Dose Admin Heparin Sodium (Porcine) 300 unit 02/19/25 16:38 02/19/25 16:43 Heparin Lock Flush 500 Units/5ml Syr IV 02/19/25 16:39 5 ml ONCE ONE Administration Sodium Chloride 1,000 mls @ 999 mls/hr 02/19/25 14:18 02/19/25 14:34 Sod Chlor 0.9% 1000ml Bag IV 02/19/25 15:18 999 mls/hr .Q1H1M ONE Administration Ondansetron HCl 4 mg 02/19/25 14:18 02/19/25 14:33 Ondansetron 4mg/2ml Vial IV 02/19/25 14:19 4 mg ONCE ONE Administration ORDERS Category Date Time Status CXR --portable [XR chest portable] Stat Exams 02/19/25 14:20 Completed CBC w/Auto Diff [Complete Blood Count Auto Diff] Stat Lab 02/19/25 14:25 Completed CMP [Comprehensive Metabolic Panel] Stat Lab 02/19/25 14:25 Completed HIV Combo Stat Lab 02/19/25 14:25 Received Hepatitis C Ab Qual. W/ RFX Stat Lab 02/19/25 14:25 Completed Lipase Stat Lab 02/19/25 14:25 Completed Trop I [Troponin I] Stat Lab 02/19/25 14:25 Completed Urinalysis and Microscopic Stat Lab 02/19/25 16:23 Results Medical Decision Narrative: In summary, patient is a 59-year-old female PMHx breast cancer with mastectomy, hypertension, restless leg, hypokalemia who presents to the ED with complaints of right upper quadrant abdominal pain and chest pain. Patient had her gallbladder removed in the past, history of appendectomy. Patient is experiencing nausea and vomiting, unable to keep anything down today. She is concerned that she is dehydrated. Currently taking oral chemo & has a port. She denies fever, chills, body aches, headache, visual disturbances, shortness of breath, abdominal pain, dysuria, flank pain. Upon initial evaluation patient is alert, oriented and cooperative. Her skin exam is normal, around her mastectomy site there is expected mild erythema from radiation exposure. Differential diagnoses include ACS, chest wall pain, pneumonia, infectious process, metastatic disease, among others. Discussed with patient we will proceed with chest pain workup, she is agreeable to plan of care. Labs reviewed. CBC unremarkable for any leukocytosis, stable H&H. CMP unremarkable for any infectious process. First troponin < 0.01. Urinalysis unremarkable for any infectious process. Chest x-ray unremarkable for any acute abnormality. I reviewed the chest ultrasound that was performed prior to arrival, remarkable for soft tissue nodules in the right chest wall region of interest measuring up to 10 mm may represent metastasis. I consulted Dr. Rowan, patient's oncologist, he advises that he will make a follow-up appointment Saturday morning for biopsy. Upon reassessment, patient's condition has improved, she states she is feeling better. She remains hemodynamically stable. I discussed the results of her ultrasound, advised her I spoke with Dr. Short who will call her with a follow-up appointment. Discussed with patient she can take acetaminophen for pain, she is unable to take NSAIDs due to being on Xarelto. We discussed follow-up, discussed return precautions to the ED and patient verbalized understanding. Critical Care Critical Care Time Critical Care Time: No
--- NOTE | 2025-02-19 14:20 | XR_ITS ---
FINAL REPORT CLINICAL HISTORY: CP soa congestion FINDINGS: There is mild interstitial prominence in the periphery of the right lung related to scarring as seen on recent chest CT. The left lung is clear. Left chest port is present. There is right axillary lymph node dissection. There is no evidence of effusion or pneumothorax. Mediastinum is unremarkable. Heart size is normal. IMPRESSION: Changes without acute abnormality. Reviewed, Interpreted and Dictated by Abi Sotelo MD Transcribed by Marlena Munroe Authenticated and [facility]
[2025-02-19 14:25] VITALS: BP 119/74; PULSE 71; RESP 15; TEMP 36.9; O2SAT 98
--- NOTE | 2025-02-19 14:25 | ECG_ITS ---
APPROVED REPORT Exam: Resting ECG HR:65 bpm ECG Measurements Heart Rate 65 AXES MT 170 P 3 QRSd 101 QRS 9 QT 382 T 14 QTc 394 Conclusion SINUS RHYTHM VOLTAGE CRITERIA FOR LVH [MEETS CRITERIA IN ONE OF: R(aVL), S(V1), R(V5), R(V5/V6)+S(V1)] POSSIBLE ANTERIOR MYOCARDIAL INFARCTION , PROBABLY OLD [30 ms Q WAVE IN V3/V4, OR R < 0.2 mV IN V4] INFERIOR MYOCARDIAL INFARCTION , PROBABLY OLD [40+ ms Q WAVE AND/OR ST/T ABNORMALITY IN II/aVF] ABNORMAL ECG UNCONFIRMED REPORT Electronically signed by : MOISES SANCHEZ, 02/20/2025 06:54:53
[2025-02-19] MEDS: ONDANSETRON 4MG/2ML VIAL 4 MG IV (14:33)
[2025-02-19 14:34] LABS: Hematocrit 29.6 % (37.0-47.0); Hemoglobin 10.2 g/dL (12.2-16.2); Immature Granulocytes % 0.3 %; Mean Corpuscular HGB Conc 34.5 g/dL (31.8-35.4); Mean Corpuscular Hemoglobin 31.7 pg (27.0-31.2); Mean Corpuscular Volume 91.9 fl (81-99); Nucleated Red Blood Cells % 0 %; Platelet Count 267 K/mm3 (142-424); Red Blood Count 3.22 M/mm3 (4.20-5.40); Red Cell Distribution Width-SD 47.6 fL; White Blood Count 6.2 K/mm3 (4.8-10.8)
[2025-02-19] MEDS: 0.9 % SODIUM CHLORIDE 1000ML 1,000 ML 999 ML IV (14:34)
[2025-02-19 14:47] LABS: Albumin Level 4.0 g/dl (3.5-5.0); Chloride 107 mmol/L (98-107); Potassium 4.0 mmoL/L (3.5-5.1); Sodium 136 mmol/L (136-145)
[2025-02-19 14:49] LABS: Blood Urea Nitrogen 10 mg/dl (7-17); Creatinine Clearance Estimated 101 mL/min (50-200); Creatinine,Serum 0.80 mg/dl (0.52-1.04); Estimated Glomerular Filt Rate 74 ml/min (>60); GFR (African American) 89 ML/MIN (>60)
[2025-02-19 14:50] LABS: Alanine Aminotransferase 17 U/L (12-78); Albumin/Globulin Ratio 1.5 (1.1-1.8); Alkaline Phosphatase 102 U/L (38-126); Anion Gap 12.0 mEq/L (5-15); Aspartate Amino Transferase 30 U/L (14-36); Bilirubin,Total 0.6 mg/dl (0.2-1.3); Calcium 8.9 mg/dl (8.4-10.2); Carbon Dioxide 21 mmol/L (22.0-30.0); Globulin 2.6 g/dL (1.3-3.2); Glucose 120 mg/dl (74-100); Lipase 96 U/L (23-300); Total Protein,Serum 6.6 g/dl (6.3-8.2)
[2025-02-19 15:12] LABS: Troponin I < 0.01 ng/ml (0.00-0.034)
[2025-02-19 16:00] VITALS: BP 123/74; PULSE 61; RESP 17; O2SAT 99
--- NOTE | 2025-02-19 16:14 | PC.NURSE ---
LEYLA Esquivel spoke with Dr. Rowan regarding plan of care.
[2025-02-19 16:28] LABS: Microscopic, Urine URINE MICROSCOPIC (MICROSCOPIC)
[2025-02-19 16:29] LABS: Color,Urine YELLOW (Yellow)
[2025-02-19 16:30] LABS: Bilirubin,Urine Negative (Negative); Glucose,Urine (UA) Negative (Negative); Ketones,Urine Negative (Negative); Leukocyte Esterase,Urine Negative (Negative); PH,Urine 6.5 (5.0-8.5); Protein,Urine Negative (Negative); Specific Gravity, Urine <= 1.005 (1.005-1.030); Urobilinogen,Urine 0.2 EU/dl (0.2)
[2025-02-19 16:37] LABS: Bacteria,Urine 1+ /lpf
[2025-02-19 16:39] VITALS: BP 128/77; PULSE 70; RESP 18; TEMP 36.9; O2SAT 98
[2025-02-19 16:50] LABS: Hepatitis C Ab Qual. W/ RFX NEGATIVE (Negative)
== END 2025-02-19 16:43 | disposition home or self-care (01) ==
PROVIDERS: Nurse Practitioner; Emergency Provider Student in an Organized Health Care Education/Training Program; PCP Family Medicine
DX: R07.89 Other chest pain (principal); R10.11 Right upper quadrant pain; R11.2 Nausea with vomiting, unspecified; Z85.3 Personal history of malignant neoplasm of breast; Z92.21 Personal history of antineoplastic chemotherapy; Z79.01 Long term (current) use of anticoagulants
CPT/HCPCS: 71045; 80053; 81001; 83690; 84484; 85025; 86803; 87389; 93005; 96361; 96374; 96375; 99284; J1642; J2405; J7030

== ENCOUNTER 2025-03-01 15:35 | Emergency (ER) | payer MEDICAID, SELFPAY ==
--- OUTSIDE RECORDS SUMMARY | 2025-01-02 16:26 | XMS_ITS | Encounter Summary ---
Author Organization [facility] Address [facility] [place] [address] Phone Care Team Providers Care Oven Heater Name Role Phone Chetna Cedeno MD Primary Care Provider [phone] Reason for Visit * Reason Comments Heat Exposure Patient arrives via EMS from an event outside, states she was in [facility] and felt lightheaded, went to a [...] EDT - 01/02/2025 7:27 PM EDT Emergency [facility] Emergency Department [address] [place] [phone] [place] [address] [place] [address] Heat exhaustion, unspecified, initial encounter [T67.5XXA] Discharge [...] Care Everywhere. * POTASSIUM CONTENT OF FOODS (KHMER) documented in this encounter Medications at Time [...] be directed to the Care Management Departments: [facility] [phone] or [facility] [phone] or [facility] [phone]. documented in this encounter ED Notes * Dallin Espinoza MD - 01/02/2025 4:48 PM EDT Images from the original note were not included. [facility] EMERGENCY DEPARTMENT ED Encounter Arrival Date: 01/02/251624 Meri Cole : [address] [place] [address] CSN: [id number] GIO: [id number] EMERGENCY DEPARTMENT - GENERAL NOTE CHIEF COMPLAINT Chief Complaint Patient presents with Heat Exposure Patient arrives via EMS from an event outside, states she was in [facility] and felt lightheaded,went to a tent [...] Resource Strain: Low Risk (07/07/2024) Received from [facility] Overall Financial Resource Strain (CARDIA) Difficulty of Paying Living Expenses: Not very hard Food Insecurity: No Food Insecurity (07/07/2024) Received from [facility] Hunger Vital Sign Worried About Running Out of Food in the Last Year: Never true Ran Out of Food in the Last Year: Never true Transportation Needs: No Transportation Needs (07/07/2024) Received from [facility] IP Transportation In the past 12 months, has lack of reliable transportation kept you from medical appointments, meetings, work or from getting things needed for daily living?: No Physical Activity: Insufficiently Active (07/07/2024) Received from [facility] Exercise Vital Sign Days of Exercise per Week: 3 days Minutes of Exercise per Session: 40 min Stress: Stress Concern Present (07/07/2024) Received from [facility] Citizen Of [place] of Occupational Health - Occupational Stress Questionnaire Feeling of Stress : Rather much Social Connections: Socially Isolated (11/07/2023) Received from [facility] Social Connection and Isolation Panel [NHANES] Frequency of Communication with Friends and Family: Once a week Frequency of Social Gatherings with Friends and Family: Once a week Attends Zoroastrianism Services: 1 to 4 times per year Active Member of Clubs or Organizations: No Attends Club or Organization Meetings: Never Marital Status: Never Housing Stability: High Risk (11/07/2023) Received from [facility] Housing Stability Vital Sign Unable [...] 428 ms QTcF 417 ms QRS Horizontal [place] -19 deg QRS AXIS 16 deg I-40 Horizontal [place] 46 deg I-40 FRONT AXIS -17 deg T-40 Horizontal [place] -50 deg T-40 Front [place] 51 deg T Horizontal [place] 52 deg T WAVE AXIS 16 deg S-T Horizontal [place] 60 deg S-T Front [place] 24 deg ECG IMPRESSION - BORDERLINE ECG - ECG IMPRESSION SR-Sinus rhythm-normal P axis, V-rate 50-99 ECG IMPRESSION LVHVP-Probable left ventricular hypertrophy-multiple LVH criteria ECGGUID [id number] CBC w/ Diff Collection Time: 01/02/25 5:13 [...] an event outside, states she was in [facility] and felt lightheaded,went to a tent [...] out of the sun in the heat. [place] dizzy lightheaded. Does feel slightly better after [...] Chetna Cedeno MD Family Medicine As needed [facility] [place] [address] [place] [address] Please note that some or all of this record was generated using voice recognition software. If there are any questions about the content of this document, please contact the author as some errors in radio interference expert may have occurred. Dallin Espinoza MD 01/02/25 1837 Dallin Espinoza MD 01/02/25 1848 * Rylie Darby Registered Nurse - 01/02/2025 4:30 PM EDT Triage Note Meri Cole presents to [facility] with complaint(s) of Heat Exposure (Patient arrives via EMS froman event outside, states she was in [facility] and felt lightheaded, went to a [...] (ABNORMAL) BAMP (Na,K,Cl,CO2,Glu,BUN,Creat,Ca) (01/02/2025 5:13 PM EDT) [facility] BLD UREA NITROGEN 16 8 - 26 mg/dL CHEMISTRY [place] SODIUM 140 135 - 145 mmol/L CHEMISTRY [place] POTASSIUM 3.2(L) 3.6 - 5.1 mmol/L CHEMISTRY [place] CHLORIDE 107 98 - 111 mmol/L CHEMISTRY [place] CO2 20(L) 21 - 31 mmol/L CHEMISTRY [place] GLUCOSE, RANDOM 89 70 - 99 mg/dL CHEMISTRY [place] CREATININE 1.06 0.60 - 1.20 mg/dL CHEMISTRY [place] ANION GAP 13 4 - 16 mmol/L CHEMISTRY [place] CALCIUM 9.0 8.5 - 10.4 mg/dL CHEMISTRY [place] ESTIMATED GFR 61 >59 mL/min/1.7 3 m2 CHEMISTRY [place] Comment: Estimated GFR was calculated using the CKD-EPI cr (2020) equation refit without race. The equation is recommended by the National Kidney Foundation - [place] Society of Nephrology Task Force. Tested at [address] [address] Whole Blood 01/02/2025 5:13 PM EDT 01/02/2025 5:25 PM EDT Dallin Espinoza MD LAB BLOOD ORDERABLES Final Result [facility] [address] [place] [address] [address] * (ABNORMAL) CBC w/ Diff (01/02/2025 5:13 PM EDT) [facility] WBC 7.1 3.6 - 10.5 THOU/mcL CHEMISTRY [place] RBC 3.75(L) 3.80 - 5.20 MIL/mcL CHEMISTRY [place] HEMOGLOBIN 11.2(L) 12.0 - 15.2 g/dL CHEMISTRY [place] HEMATOCRIT 33.6(L) 36 - 46 % CHEMISTRY [place] MCV 89.6 82 - 97 fL CHEMISTRY [place] MCH 30.0 27 - 33 pg CHEMISTRY [place] MCHC 33.5 32 - 36 g/dL CHEMISTRY [place] RDW 16.0 12.3 - 17.0 % CHEMISTRY [place] PLATELET 206 140 - 375 THOU/mcL CHEMISTRY [place] MPV 6.9(L) 7.0 - 11.5 fL CHEMISTRY [place] ABS. NEUTROPHIL 3.60 1.80 - 7.70 THOU/mcL CHEMISTRY [place] ABS LYMPHS 3.00 1.00 - 4.00 THOU/mcL CHEMISTRY [place] ABS MONOS 0.30 0.20 - 0.90 THOU/mcL CHEMISTRY [place] ABS EOS 0.10 0.03 - 0.45 THOU/mcL CHEMISTRY [place] ABS BASOS 0.10 0.00 - 0.20 THOU/mcL CHEMISTRY [place] SEGS 51 % CHEMISTRY [place] LYMPHOCYTES 43 % CHEMISTR Y NORTH MONOCYTES 4 % CHEMISTRY [place] EOSINOPHIL 1 % CHEMISTRY [place] BASOPHILS 1 % CHEMISTRY [place]LISLE Comment:Tested at [facility] [address] [place] [address] Whole Blood 01/02/2025 5:13 PM EDT 01/02/2025 5:25 PM EDT Dallin Espinoza MD LAB BLOOD ORDERABLES Final Result [facility] [address] [place] [address] [address] * ECG 12 lead (01/02/2025 4:37 PM [...] QTcF 417 ms TH TRACEMASTER QRS Horizontal [place] -19 deg TH TRACEMASTER QRS AXIS 16 deg TH TRACEMASTER I-40 Horizontal [place] 46 deg TH TRACEMASTER I-40 FRONT AXIS -17 deg TH TRACEMASTER T-40 Horizontal [place] -50 deg TH TRACEMASTER T-40 Front [place] 51 deg TH TRACEMASTER T Horizontal [place] 52 deg TH TRACEMASTER T WAVE AXIS 16 deg TH TRACEMASTER S-T Horizontal [place] 60 deg TH TRACEMASTER S-T Front [place] 24 deg TH TRACEMASTER ECG IMPRESSION - BORDERLINE ECG - TH TRACEMASTER ECG IMPRESSION SR-Sinus rhythm-normal P axis, V-rate 50-99 TH TRACEMASTER ECG IMPRESSION LVHVP-Probable left ventricular hypertrophy-mul tiple LVH criteria TH TRACEMASTER ECGGUID [id number] TH TRACEMASTER 01/02/2025 4:37 PM EDT Dallin [...] Raymundo) documented in this encounter Care Teams Oven Heater Relationship Specialty Start Date End Date Chetna Cedeno MD [facility] [address] [place] [address] PCP - General Family Medicine 01/02/25 documented as of this encounter
--- OUTSIDE RECORDS SUMMARY | 2025-01-06 12:56 | XMS_ITS | Encounter Summary ---
Author Organization [place] [address] Care Team Providers Care Group Work Program Aide Name Role Phone Chetna Cedeno MD Primary Care Provider [phone] Arlyn Schmidt MD Unavailable [phone] Tacho Echavarria MD Unavailable [phone] Matt Ulrich MD Unavailable [phone] Eze Brock Unavailable Annette Walker Unavailable [phone] Batool Celis MD Unavailable [phone] Encounter Details Date Type Department Care Team (Latest Contact Info) Description 01/06/2025 12:56 PM EDT - 01/06/2025 1:13 PM EDT Hospital Encounter [facility] [place], [place] [id number] Tacho Echavarria MD [address] [place] [phone] Invasive ductal carcinoma of breast, female, right (HCC) (Primary Dx) Discharge Disposition: Home or Self [...] from your doctor or pharmacy? Never 11/07/2023 [facility] Utilities Answer Date Recorded In [...] often do you attend chur ch or gnosticist services? 1 to 4 times per year 11/07/2023 Do you belong to any clubs o r organizations such as lutheran groups, unions, fraternal or athletic groups, or [...] Date Recorded PHQ-2 Total Score 5 07/07/2024 [facility] of Occupat ional Health - Occupational Stress [...] you homeless or living in a senior living (including now)? No 11/07/2023 [facility] IP Transportation Answer D ate Recorded In [...] Macarena Marion CCMA documented in this encounter Medications at Time of Discharge abemaciclib (VERZENIO) 100 mg Oral TabletIndications :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),Chemotherap y-induced nausea Take 1 Tablet by mouth 2 times daily. 56 Tablet 4 02/04/2025 4:14 PM EDT 5 albuterol (PROVENTIL HFA;VENTOLIN HFA) [...] recurrent major depressive disorder, without psychotic features (HCC),KYAODE (generalized anxiety disorder) Take 1 Tablet by [...] 4 fluticasone propionate (FLONASE) 50 mcg/actuation Nasl Hammond, Suspension 1 Hammond by Nasal route daily. 1 Each 11 4 Inhalational Spacing Device (AEROCHAMBER MV) Misc Spacer 1 Each by [facility].(Non-Drug; Combo Route) route as needed. 1 Device 0 ketorolac (TORADOL) 10 mg Oral Tablet Take 10 mg by mouth once. 5 LORazepam (ATIVAN) 0.5 mg Oral TabletIndications :Anxiety about treatment Take 1 Tablet by mouth 2 times daily as needed for Anxiety (or Insomnia). 30 Tablet 4 losartan (COZAAR) 50 mg Oral TabletIndications :Essential hypertension, benign Take 1 Tablet by mouth daily. only if BP elevated 90 Tablet 5 MAGIC MOUTHWASH (LIDO/DIPHEN/NYST AT) ORAL COMPOUNDIndicatio ns:Mucositis [...] as needed. No driving 100 mL 5 rOPINIRole (REQUIP) 0.25 mg Oral TabletIndications :Restless leg syndrome Take 1 Tablet by mouth nightly as needed. for up to 30 days. 30 Tablet 5 5 tiZANidine (ZANAFLEX) 4 mg Oral TabletIndications [...] Care Team (Late st Contact Info) Description 03/09/2025 12:45 PM EDT Procedure visit [facility] [address] [facility] [address] [place] [address] Samm Ledesma, LEYLA [address] [place] [address] 03/10/2025 12:30 PM EDT Appointment [place] [address] Tacho Echavarria MD [address] [place] [address] 03/10/2025 1:00 PM EDT Appointment [facility] [place], [place] [phone] Tacho Echavarria MD [address] [place] [address] 04/29/2025 9:15 AM EDT Appointment [facility] RAD ONC [place], [place] [id number] Batool Celis MD [address] [facility] [place] [address] 05/19/2025 2:15 PM EST Office Visit [facility] [place] [address] [facility] [address] [facility] [address] [place] [address] Sin Tran MD [address] [place] [address] [place] [address] 08/12/2025 10:40 AM EST Appointment [facility] Women's Wellness [facility] [place] [id number] Matt Ulrich MD [address] [facility] [address] [place] [address] documented as of this encounter Goals Goal Patient Goal Type Associated Problems Recent Progress Patient-Stated? Author Blood Pressure < 140/90 Blood Pressure 121/77(02/04 2:04 PM EDT) No Chetna Cedeno MD Breast [facility] Breast Health On track(2024 11:27 AM EDT) No Jasmin Porter, RAUL Note: Patient acknowledges understanding of new diagnosis, plan of care, available resources and how to contact Nurse Navigator with any future questions or concerns. Breast [facility] Breast Health Not on track(2024 11:27 AM EDT) No Jasmin Porter, RAUL Note: Patient will be compliant with monthly SBE and is aware of who to contact for any unusual or concerning findings. Maintain a healthy diet, exercise regularly and maintain an ideal body weight General No Sanam Julio MA documented as of this encounter Visit Diagnoses Diagnosis Invasive ductal carcinoma of breast, female, right (HCC)- Primary documented in this encounter Administered Medications Inactive Administered Medications - up to 1 most recent administrations Medication Order MAR Action Action Date Dose Rate Site sodium chloride 0.9 % sterile syringe Intravenous, PRN, Starting on Sat01/06/25 at 1258, Until Pari 01/07/25 at 0413, Line Care, For initial access of Venous Access Device., Dx: 1. Invasive ductal carcinoma of breast, female, right (HCC)Indications:Invasive ductal carcinoma of breast, female, right (HCC) Given 01/06/2025 1:17 PM EDT 10 mL documented in this encounter Orders Medications Ordered That Obed ht Not Have Been Administered Count Last Ordered Date First Ordered Date heparin flush 100 unit/mL in jection 500 Units 1 01/06/2025 sodium chloride 0.9 % sterile syringe 1 08/2024 documented in this encounter Additional Health Concerns Assessment Noted Time PHQ-9 Depression Total Score: 17 024 8:39 AM EST PHQ-2 Depression Total Score: 5 07/07/20 24 8:39 AM EST documented as of this encounter Care Teams Group Work Program Aide Relationship Specialty [place] [address] [place] [address] PCP - General 06/21/10 Arlyn Schmidt MD [address] [place] [address] Consulting Physician Internal Medicine-Endocrinology, Diabetes & Metabolism 11/28/20 Tacho Echavarria MD [address] [place] [address] Internal Medicine-Medical Oncology 11/12/23 Matt Ulrich MD [address] [place] [address] Surgery-Surgical Oncology 12/04/23 Eze Brock Pastoral Care 12/13/23 Annette Walker MSW Manufacturing Teacher 05/13/24 Batool Celis MD [address] [place] [address] [place] [address] Radiation Oncologist Radiology-Radiation Oncology 06/08/24 documented as of this encounter
--- OUTSIDE RECORDS SUMMARY | 2025-01-06 13:14 | XMS_ITS | Encounter Summary ---
Author Organization [place] [address] Care Team Providers Care Underwear Welter Name Role Phone Chetna Cedeno MD Primary Care Provider [phone] Arlyn Schmidt MD Unavailable [phone] Tacho Echavarria MD Unavailable [phone] Matt Ulrich MD Unavailable [phone] Eze Brock Unavailable Annette Walker Unavailable [phone] Batool Celis MD Unavailable [phone] Reason for Visit * Reason Comments Follow-up Breast Cancer Encounter Details Date Type Department Care Team (Latest Contact Info) Description 01/06/2025 1:14 PM EDT - 01/06/2025 11:59 PM EDT Hospital Encounter [place] [address] Tacho Echavarria MD [address] [place] [address] [phone] Invasive ductal carcinoma of breast, female, right [...] from your doctor or pharmacy? Never 11/07/2023 [facility] Utilities Answer Date Recorded In the past [...] often do you attend chur ch or mandaeism services? 1 to 4 times per year 11/07/2023 Do you belong to any clubs o r organizations such as christian groups, unions, fraternal or athletic groups, or [...] Date Recorded PHQ-2 Total Score 5 07/07/2024 [facility] [place] of Occupat ional Health - Occupational Stress [...] any time in the past 12 m [facility], were you homeless or living in a [place] facility (including now)? No 11/07/2023 [facility] IP Transportation Answer D ate [...] 56 Tablet 4 02/04/2025 4:14 PM EDT albuterol (PROVENTIL HFA;VENTOLIN HFA) 90 mcg/actuation Inhl [...] 4 fluticasone propionate (FLONASE) 50 mcg/actuation Nasl [place], Suspension 1 Gateway by Nasal route daily. 1 Each 11 [...] note were not included. Patient: El Cole [facility]: [id number] Date of : 1965 Age: 59 y.o. Date of Service: 01/06/2025 HEMATOLOGY/ONCOLOGY FOLLOW UP VISIT Primary Hydraulic Elevator Constructor & Oncologist: Tacho Echavarria MD. Patient Care Team: Chetna Cedeno MD as PCP - [facility] as Consulting Physician (Internal Medicine-Endocrinology, Diabetes & Metabolism) Tacho Echavarria MD (Internal Medicine-Medical Oncology) Matt Ulrich MD (Surgery-Surgical Oncology) Eze Brock as Pastoral Care Annette Walker MSW as Wire Stitcher Operator Batool Celis MD as Radiation Oncologist (Radiology-Radiation Oncology) 2nd OPINION [facility] EVAL: [place], [place]: Dr Cota Chambers: [phone] Next of Kin: Daughter Ruthy Man ([phone]) Patient Contact info: [phone] DIAGNOSIS HISTORY DATE OF INITIAL CONSULTATION: 11/14/23; outside 2nd opinion at on 09/23/2024 CURRENT TREATMENT BREAST CA: adjuvant [place]-E regimen: Arimidex 1mg po daily + dose [...] Invasive ductal carcinoma grade 3 ER 92% OH 55% HER2 Negative HER-2 by FISH NEGATIVE [...] to GI tolerance for 2 yr planned ([place] regimen) Stage Clinical Stage IIIB (cT3, cN3a(f), cM0, G3, ER+, OH+, HER2-) Pathologic Stage ypT3, ypN3a, G3, ER+, OH+, HER2- Right breast cancer with T3 tumor, [...] CalcPt Dosage Given to Date in Gy [id number] Session Dosage Given in Gy [id number] Reference Point ID LN Boost RP Dosage Given to Date in Gy 10 Session Dosage Given in Gy 1.39555035 Reference Point ID [id number] ISO Dosage Given to Date in Gy [id number] Session Dosage Given in Gy [id number] Plan ID Nd Boost Plan Name Nd [...] GASTRECTOMY ; Surgeon: Marcus Perez MD; Location: [facility]; Service: General IR 2 LEVEL [...] > 5 YEARS 11/29/2023 Joselito Goodwin MD [facility] IR LUMBAR DISC SURGERY 09/11/2012 LUMBAR LAMINECTOMY & DISCECTOMY L4-5 LEFT ; Surgeon: Hetal Borden MD; MASTECTOMY Right 07/06/2024 Right modified radical mastectomy; Surgeon: Matt Ulrich MD; Location: [facility] MAIN OR; Service:General SPINE SURGERY N/A 01/04/2021 PAIN PUMP PERMANENT IMPLANT; Surgeon: Munir Hilton MD; Location: [facility] MAIN OR; Service: Pain Management THORACIC SPINE SURGERY N/A 02/24/2020 SPINAL CORD STIMULATOR IMPLANT; Surgeon: Munir Hilton MD; Location: [facility] MAIN OR; Service: Pain Management TONSILLECTOMY UPPER GASTROINTESTINAL ENDOSCOPY UPPER GASTROINTESTINAL ENDOSCOPY N/A 01/26/2015 ESOPHAGOGASTRODUODENOSCOPY with biopsy and davis dilation; Surgeon: Stone Cronin MD; Location: [facility]; Service: Endoscopy FAMILY HISTORY Family History [...] op ddAC/Taxane chemo for her high risk ER/OH positive large RIGHT BREAST Carcinoma. She has [...] having completed adjuvant Radiation, while on the [facility] adjuvant therapy treatment approach. Update (01/06/2025): Ms [...] Device fluticasone propionate (FLONASE) 50 mcg/actuation Nasl Gateway, Suspension Inhalational Spacing Device (AEROCHAMBER MV) Misc [...] Gran% 0.2 % Lymph Percent 28.1 % [place] Percent 4.3 % Eos Percent 1.8 % Baso Percent 0.4 % Neut # 3.3 1.6 - 6.1 x10(3)/mcL IMMGRAN# 0.0 0.0 - 0.1 x10(3)/mcL Lymph # 1.4 1.2 - 3.9 x10(3)/mcL [place] # 0.2 (L) 0.3 - 0.9 x10(3)/mcL [...] G43.719-Chronic migraine without aura, intractable, without status [id number]. COMPARISON: Multiple priors with the latest MRI [...] Role King Oliva MD Performing Provider Shaylee Roque???LOIUE Restrepo DRAGGER Viv Martinez RN Tax Compliance Officer Madelyn Sidhu RN Endoscopy Nurse Aliya Friedman [...] No other evidence of metastatic disease. IMPRESSION lE Cole is a 59 y.o. female who [...] outside facility Neurosurgeon (Dr Benoit Duke at [facility]) and no need for surgical resection [...] Tacho Echavarria MD Hematology and Medical Oncology [facility] [phone] *This note was dictated using voice recognition [...] also performed on this calendar day: d/w Tax Compliance Officer about her care and symptom burden/depression documented in this encounter Plan of Treatment Upcoming Encounters Date Type Department Care Team (Late st Contact Info) Description 03/09/2025 12:45 PM EDT Procedure visit [facility] [address] [place] [address] Samm Ledesma, COURT COMMISSIONER [address] [facility] [address] [place] [address] 03/10/2025 12:30 PM EDT Appointment [place] [address] Tacho Echavarria MD [address] [place] [id number] 03/10/2025 1:00 PM EDT Appointment [facility] [place] [address] Tacho Echavarria MD [address] [place] [address] [phone] 04/29/2025 9:15 AM EDT Appointment [place] [address] Batool Celis MD [address] [place] [address] [place] [address] 05/19/2025 2:15 PM EST Office Visit [facility] [address] [place] [phone] Sin Tran MD [address] [place] [phone] 08/12/2025 10:40 AM EST Appointment [facility] [place] [address] Matt Ulrich MD [address] [place] [address] [address] [place] [address] documented as of this encounter Goals Goal Patient Goal Type Associated Problems Recent Progress Patient-Stated? Author Blood Pressure < 140/90 Blood Pressure 121/77(02/04 2:04 PM EDT) Chetna Hsu MD Breast Health Breast Health On track(2024 11:27 AM EDT) No Jasmin Porter, RAUL Note: Patient acknowledges understanding of new diagnosis, plan of care, available resources and how to contact Nurse Navigator with any future questions or concerns. [facility] Not on track(2024 11:27 AM EDT) No Jasmin Porter RN Note: Patient will [...] MISC COMMENT Tiago 01/07/2025 7:35 AM EDT [facility] Blood VENOUS STRUCTURE / Unknown Port / Unknown 01/06/2025 1:13 PM EDT 01/07/2025 7:31 AM EDT us Tacho Echavarria MD HEMATOLOGY ORDERABLES Final Result [facility] [address] [place] [address] * IRON+TIBC (01/06/2025 1:13 PM EDT) Pathologist [facility] Iron 78 30 - 160 mcg/dL 01/06/2025 [...] Tacho Echavarria MD CHEMISTRY ORDERABLES Final Result [facility] [address] [facility], [place] [address] * VITAMIN B12/ FOLIC ACID (01/06/2025 1:13 PM EDT) Pathologist [facility] Vitamin B12 305 232 - 1,245 pg/mL 01/06/2025 2:55 PM EDT [facility] Folate 15.80 >=4.80 ng/mL 01/06/2025 2:55 PM EDT [facility] Blood VENOUS STRUCTURE / Unknown Port / Unknown 01/06/2025 1:13 PM EDT 01/06/2025 1:17 PM EDT Narrative [facility] - 01/06/2025 2:55 PM EDT Ingestion of haroon doses of biotin (>5 mg/day) taken within 8 hours of drawing blood sample can interfere with this immunoassay test. us Tacho Echavarria MD CHEMISTRY ORDERABLES Final Result [facility] [address] [facility] , [address] [place] [id number] * (ABNORMAL) COMPREHENSIVE METABOLIC PANEL (01/06/2025 1:13 PM EDT) Sodium 140 136 - 145 mmol/L 01/06/2025 1:37 PM EDT [facility] Potassium 3.8 3.5 - 5.0 mmol/L 01/06/2025 1:37 PM EDT [facility] Chloride 108(H) 98 - 107 mmol/L 01/06/2025 1:37 PM EDT [facility] Total CO2 22 22 - 29 mmol/L 01/06/2025 1:37 PM EDT [facility] Anion Gap 10 7 - 16 mmol/L 01/06/2025 1:37 PM EDT [facility] Calcium 9.2 8.6 - 10.4 mg/dL 01/06/2025 1:37 PM EDT [facility] Glucose Lvl 121(H) 70 - 99 mg/dL 01/06/2025 1:37 PM EDT [facility] BUN 16 6 - 20 mg/dL 01/06/2025 1:37 PM EDT [facility] Creatinine 0.83 0.51 - 1.30 mg/dL 01/06/2025 1:37 PM EDT [facility] Albumin 4.0 3.5 - 5.2 gm/dL 01/06/2025 1:37 PM EDT [facility] Total Protein 6.6 6.4 - 8.3 gm/dL 01/06/2025 1:37 PM EDT [facility] Bili Total 0.4 0.2 - 1.3 mg/dL 01/06/2025 1:37 PM EDT [facility] ALT 9 <=41 U/L 01/06/2025 1:37 PM EDT [facility] AST 14 <=40 U/L 01/06/2025 1:37 PM EDT [facility] Alk Phos 127(H) 36 - 123 U/L 01/06/2025 1:37 PM EDT [facility] eGFR (CKD-EPIcr 2020) 82 >=60 mL/min/1.7 3 m2 01/06/2025 1:37 PM EDT [facility] Comment:Estimated GFR was ca lculated using the CKD-EPIcr (2020) equation refit without race. The equation is recommended by the National Kidney Foundation - [place] Society of Nephrology Task Force. Blood VENOUS STRUCTURE / Unknown Port / Unknown 01/06/2025 1:13 PM EDT 01/06/2025 1:17 PM EDT Tacho Echavarria MD CHEMISTRY ORDERABLES Final Result [facility] [address] [place] [id number] * (ABNORMAL) CBC WITH DIFF (01/06/2025 1:13 PM EDT) WBC 5.1 3.7 - 10.3 x10(3)/mc L 01/06/2025 1:22 PM EDT [facility] RBC 3.61(L) 3.90 - 5.20 x10(6)/mc L 01/06/2025 1:22 PM EDT [facility] Hgb 11.0(L) 11.2 - 15.7 g/dL 01/06/2025 1:22 PM EDT [facility] Hct 33.2(L) 34.0 - 45.0 % 01/06/2025 1:22 PM EDT [facility] MCV 92.0 80.0 - 100.0 fL 01/06/2025 1:22 PM EDT [facility] MCH 30.5 26.0 - 34.0 pg 01/06/2025 1:22 PM EDT [facility] MCHC 33.1 30.7 - 35.5 g/dL 01/06/2025 1:22 PM EDT [facility] RDW 14.5 <=14.9 % 01/06/2025 1:22 PM EDT [facility] Platelet 170 155 - 369 x10(3)/mc L 01/06/2025 1:22 PM EDT [facility] MPV 8.8 8.8 - 12.5 fL 01/06/2025 1:22 PM EDT [facility] Neut # Prelim 3.3 1.6 - 6.1 x10(3)/mc L 01/06/2025 1:22 PM EDT [facility] Comment:Preliminary automate d absolute neutrophil count. Value may change if manual differential is indicated. Neut Percent 65.2 % 01/06/2025 1:22 PM EDT [facility] Comment:Neutrophils equals s egs plus bands Imm Gran% 0.2 % 01/06/2025 1:22 PM EDT [facility] Comment:Automated count of m etamyelocytes, myelocytes and promyelocytes. Lymph Percent 28.1 % 01/06/2025 1:22 PM EDT [facility] [place] Percent 4.3 % 01/06/2025 1:22 PM EDT [facility] Eos Percent 1.8 % 01/06/2025 1:22 PM EDT [facility] Baso Percent 0.4 % 01/06/2025 1:22 PM EDT [facility] Neut # 3.3 1.6 - 6.1 x10(3)/mc L 01/06/2025 1:22 PM EDT [facility] Comment:Neutrophils equals s egs plus bands IMMGRAN# 0.0 0.0 - 0.1 x10(3)/mc L 01/06/2025 1:22 PM EDT [facility] Comment:Automated count of m etamyelocytes, myelocytes and promyelocytes. An absolute IG <0.1 is reported as 0.0. Lymph # 1.4 1.2 - 3.9 x10(3)/mc L 01/06/2025 1:22 PM EDT [facility] [place] # 0.2(L) 0.3 - 0.9 x10(3)/mc L 01/06/2025 1:22 PM EDT [facility] Eos# 0.1 0.0 - 0.5 x10(3)/mc L 01/06/2025 1:22 PM EDT [facility] Baso # 0.0 0.0 - 0.1 x10(3)/ L 01/06/2025 1:22 PM EDT [facility] Blood VENOUS STRUCTURE / Unknown Port / Unknown 01/06/2025 1:13 PM EDT 01/06/2025 1:17 PM EDT us Tacho Echavarria MD HEMATOLOGY ORDERABLES Final Result [address] [address] * MISCELLANEOUS LAB (01/06/2025 1:13 PM EDT) MISC RON Ordoñez 01/07/2025 7:34 AM EDT [facility] Blood VENOUS STRUCTURE / Unknown Port / Unknown 01/06/2025 1:13 PM EDT 01/07/2025 7:31 AM EDT us Tacho Echavarria MD HEMATOLOGY ORDERABLES Final Result [address] [address] documented in this encounter Visit Diagnoses Diagnosis [...] documented as of this encounter Care Teams Underwear Welter Relationship Specialty [place] [address] [place] [phone] PCP - General 06/21/10 Arlyn Schmidt MD [address] [place], [place] [id number] Consulting Physician Internal Medicine-Endocrinology, Diabetes & Metabolism 11/28/20 Tacho Echavarria MD [address] [place] [address] Internal Medicine-Medical Oncology 11/12/23 Matt Ulrich MD 1 [place] [address] Surgery-Surgical Oncology 12/04/23 Eze Brock Pastoral Care 12/13/23 Annette Walker, ARACELI Wire Stitcher Operator 05/13/24 Batool Celis MD 1 [facility] [place] [address] Radiation Oncologist Radiology-Radiation Oncology 06/08/24 documented as of this encounter
--- OUTSIDE RECORDS SUMMARY | 2025-01-13 14:56 | XMS_ITS | Encounter Summary ---
Author Organization [place] [address] Care Team Providers Care Infection Prevention Specialist Name Role Phone Chetna Cedeno MD Primary Care Provider [phone] Arlyn Schmidt MD Unavailable [phone] Tacho Echavarria MD Unavailable [phone] Matt Ulrich MD Unavailable [phone] Eze Brock Unavailable Annette Walker Unavailable [phone] Batool Celis MD Unavailable [phone] Reason for Visit * Physical Therapy (Emergency) - Closed Specialty Diagnoses / Procedures Referred By Contac t Referred To Contact Physical Therapy Diagnoses 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) Chemotherapy follow-up examination Malignant neoplasm of right female breast, unspecified estrogen receptor status, unspecified site of breast (HCC) Port-A-Cath in place Tacho Echavarria MD 1 [place] [address] Phone: tel: fax: Shaunna Workman PT Referral ID Status Reason Start Date Expiration Date V isits Requested Visits Authorized [id number] Closed Specialty Services Required 10/08/2024 01/28/202507 31 Encounter Details Date Type Department Care Team (Latest Contact Info) Description 01/13/2025 2:56 PM EDT - 01/13/2025 11:59 PM EDT Hospital Encounter [facility] Physical Therapy [address] [place] [address] Shaunna Workman PT Discharge Disposition: Home or [...] from your doctor or pharmacy? Never 11/07/2023 [facility] Utilities Answer Date Recorded In the [...] often do you attend chur ch or zoroastrianism services? 1 to 4 times per year 11/07/2023 Do you belong to any clubs o r organizations such as orthodox groups, unions, fraternal or athletic groups, or [...] Date Recorded PHQ-2 Total Score 5 07/07/2024 [facility] [place] of Occupat ional Health - Occupational Stress [...] any time in the past 12 m [facility], were you homeless or living in a mcfp (including now)? No 11/07/2023 [facility] IP Transportation Answer D ate Recorded [...] 4 fluticasone propionate (FLONASE) 50 mcg/actuation Nasl [place], Suspension 1 [place] by Nasal route daily. 1 Each 11 [...] to walk with no AD by then, [place] (but pt states that she was told this may have been a misdiagnosis), currently taking chemo pill, R mastectomy Jun 2024, radiation ended 09/25/24, chronic back issues with sciatica Physician: Jericho ESCOBAR Follow Up: 11/11/24 Evaluation Date: 10/30/24 Reassessment Due: 12/26/24 Primary [facility] [id number] [facility] Secondary Insurance: n/a Insurance Authorization: AMB REFERRAL TO PHYSICAL THERAPY Authorized (10/08/2024-01/28/2025) Visits Requested Visits Authorized Visits Completed Visits Scheduled -- Details Referral ID: [id number] Authorization Status Reason: Received Carrier Authorization Authorization Comments: -- Referred To: Shaunna Workman PT at [facility] PT Referred By: Tacho Echavarria MD at [facility], 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 pt verbalized understanding of this again. 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 Access Code: [email or web address] URL: [email or web address] Date: 11/11/2024 Prepared by: Romana Bowman Exercises [...] will be Independent with HEP to improve nursing home health and reduce risk for injury. indbut [...] increase from 727 feet with RW to 6466-9253 feet with LRAD to improve gait elisha [...] away. Treatments to consist of Therapeutic exercise 27391, Neuromuscular re-education 07602, Manual soft tissue and/or joint mobilization 96041, Patient education, Therapeutic activity 90665, and Gait training 04087. Electronically signed by: Signed: Shaunna Workman PT Date: 01/13/2025 documented in this encounter Plan of Treatment Upcoming Encounters Date Type Department Care Team (Late st Contact Info) Description 03/09/2025 12:45 PM EDT Procedure visit [facility] [address] [place] [address] Samm Ledesma, FORGEMAN HELPER [address] [place] [address] 03/10/2025 12:30 PM EDT Appointment [place] [address] Tacho Echavarria MD [address] [place] [address] 03/10/2025 1:00 PM EDT Appointment [facility] [place], [place] [id number] Tacho Echavarria MD [address] [place] [address] 04/29/2025 9:15 AM EDT Appointment [facility] RAD ONC [place], [place] [id number] Batool Celis MD 1 [facility] [place] [address] 05/19/2025 2:15 PM EST Office Visit [facility] [address] [facility] [address] [place] [address] Sin Tran MD [address] [place], [place] [address] [address] 08/12/2025 10:40 AM EST Appointment [facility]'s [facility] [place] [facility] [place] [id number] Matt Ulrich MD [address] [facility] [address] [place] [address] documented as of this encounter Goals Goal [...] documented as of this encounter Care Teams Infection Prevention Specialist Relationship Specialty [place] [address] [place] [address] PCP - General 06/21/10 Arlyn Schmidt MD [address] [place] [address] Consulting Physician Internal Medicine-Endocrinology, Diabetes & Metabolism 11/28/20 Tacho Echavarria MD 1 [place] [address] Internal Medicine-Medical Oncology 11/12/23 Matt Ulrich MD 1 [place], [place] [phone] Surgery-Surgical Oncology 12/04/23 Eze Brock Pastoral Care 12/13/23 Annette Walker, PIPELINE OPERATOR Microscopist 05/13/24 Batool Celis MD 1 [facility] [place] [address] Radiation Oncologist Radiology-Radiation Oncology 06/08/24 documented as of this encounter
--- OUTSIDE RECORDS SUMMARY | 2025-01-15 11:55 | XMS_ITS | Encounter Summary ---
Author Organization [place] [address] Care Team Providers Care Vault Cashier Name Role Phone Chetna Cedeno MD Primary Care Provider [phone] Arlyn Schmidt MD Unavailable [phone] Tacho Echavarria MD Unavailable [phone] Matt Ulrich MD Unavailable [phone] Eze Brock Unavailable Annette Walker Unavailable [phone] Batool Celis MD Unavailable [phone] Reason for Visit * Physical Therapy (Routine) - Closed Specialty Diagnoses / Procedures Referred By Contac t Referred To Contact Physical Therapy Diagnoses Invasive ductal carcinoma of breast, female, right (HCC) Acquired lymphedema Matt Ulrich MD [address] [place] [address] Phone: tel: fax: Kylah Lawler PT Referral ID Status Reason Start Date Expiration Date V isits Requested Visits Authorized [id number] Closed Specialty Services Required 09/04/2024 01/18/2025 1 20 Encounter Details Date Type Department Care Team (Latest Contact Info) Description 01/15/2025 11:55 AM EDT - 01/15/2025 1:14 PM EDT Hospital Encounter [facility] Physical Therapy [address] [place] [address] Kylah Lawler, PT Discharge Disposition: Home or [...] or pharmacy? Never 11/07/[address] [facility] Utilities Answer Date Recorded In the [...] often do you attend chur ch or jehovah's witness services? 1 to 4 times per year 11/07/2023 Do you belong to any clubs o r organizations such as rastafari groups, unions, fraternal or athletic groups, or [...] Date Recorded PHQ-2 Total Score 5 07/07/2024 [facility] [place] of Occupat ional Health - Occupational Stress [...] in the past 12 m [facility], were you homeless or living in a senior living (including now)? No 11/07/2023 [facility] IP Transportation Answer D ate Recorded [...] 4 fluticasone propionate (FLONASE) 50 mcg/actuation Nasl [place], Suspension 1 [place] by Nasal route daily. 1 Each 11 [...] Cole : 1965 Visit # / Insurance: ([employer] ELIG EV, 20 VISITS, , ANTHEM IS SHOWING NOT ELIGIBLE AND [employer] IS SHOWING ANTHEM PRIMARY. PATIENT NEEDS TO GET THIS RESOLVED, [employer] Auth [id number] 12 Visits 09/25/24-10/25/24, [employer] Auth [id number] Date Ext 09/25/24-11/24/24 [employer] Auth [id number] DATE extended to 01/18) Onset Date: 08/08/24 Diagnosis: Right JORDAN & UE & Chest Lymphedema Initial Eval Date: 09/25/24 Precautions: Ángela HOGAN MD Follow up: [place], 01/26/25 Medication changes: None [...] progression H/o issued Independent Independent Independent Met Assisted Goals: (set for 6 weeks) Patient will demonstrate independence with compression application to decrease lymphedema progression Reviewed with pt Independent Independent Independent Met Patient will be independent with self MLD to decrease lymphedema progression H/o issued, referral to [facility] for home pump Independent as able, waiting [...] 12:45 PM EDT Procedure visit [facility] [address] [facility] [address] [place] [address] Baltazar Samm Dillon, CUSTOMER COMPLAINT SERVICE SUPERVISOR [address] [facility] [address] [place] [address] 03/10/2025 12:30 PM EDT Appointment [place] [address] Tacho Echavarria MD [address] [place] [address] 03/10/2025 1:00 PM EDT [facility]ointment [facility] [place] [address] Tacho Echavarria MD [address] [place] [address] 04/29/2025 9:15 AM EDT Appointment [facility] [place] [address] Batool Celis MD [address] [place] [address] [place] [address] 05/19/2025 2:15 PM EST Office Visit [facility] [address] [address] Sin Tran MD [address] [place] [address] 08/12/2025 10:40 AM EST Appointment [facility] Women's Wellness [facility] [place] [address] Matt Ulrich MD [address] [place] [address] [address] [place] [address] documented as of this encounter Goals Goal [...] documented as of this encounter Care Teams Vault Cashier Relationship Specialty [place] [address] [place] [address] PCP - General 06/21/10 Arlyn Schmidt MD [address] [place] [address] Consulting Physician Internal Medicine-Endocrinology, Diabetes & Metabolism 11/28/20 Tacho Echavarria MD 1 [place], [place] [id number] Internal Medicine-Medical Oncology 11/12/23 Matt Ulrich MD 1 [place] [address] Surgery-Surgical Oncology 12/04/23 Eze Brock Pastoral Care 12/13/23 Aaron Annette, CSR [employer] 05/13/24 Batool Celis MD [address] [place] [address] [place] [address] Radiation Oncologist Radiology-Radiation Oncology 06/08/24 documented as of this encounter
--- OUTSIDE RECORDS SUMMARY | 2025-01-15 13:15 | XMS_ITS | Encounter Summary ---
Author Organization [place] [address] Care Team Providers Care Ad Trafficker Name Role Phone Chetna Cedeno MD Primary Care Provider [phone] Arlyn Schmidt MD Unavailable [phone] Tacho Echavarria MD Unavailable [phone] Matt Ulrich MD Unavailable [phone] Eze Brock Unavailable Annette Walker Unavailable [phone] Batool Celis MD Unavailable [phone] Encounter Details Date Type Department Care Team (Latest Contact Info) Description 01/15/2025 1:15 PM EDT - 01/15/2025 1:29 PM EDT Hospital Encounter [facility] [place], [place] [phone] Tacho Echavarria MD [address] [place] [address] [phone] Invasive ductal carcinoma of breast, female, right [...] doctor or pharmacy? Never 11/07/2023 [facility] Utilities Answer Date Recorded In the [...] any clubs o r organizations such as advent groups, unions, fraternal or athletic groups, or [...] any time in the past 12 [facility], were you homeless or living in a alf (including now)? No 11/07/2023 [facility] IP Transportation Answer D ate Recorded [...] 4 fluticasone propionate (FLONASE) 50 mcg/actuation Nasl [place], Suspension 1 [place] by Nasal route daily. 1 Each 4 [...] NEUROLOGY HECTOR [address] [facility] [address] [place] [address] Samm Ledesma APRN [address] [place] [address] 03/10/2025 12:30 PM EDT Appointment [facility] [place] [address] Tacho Echavarria MD 1 [place] [address] 03/10/2025 1:00 PM EDT Appointment [facility] [place] [address] Tacho Echavarria MD [address] [place] [address] 04/29/2025 9:15 AM EDT Appointment [facility] RAD ONC [place], [place] [id number] Batool Celis MD [address] [place] [address] [place] [address] 05/19/2025 2:15 PM EST Office Visit [address] [address] Sin Tran MD [address] [place] [address] 08/12/2025 10:40 AM EST Appointment [facility] [place] [address] Matt Ulrich MD [address] [place] [address] [address] [place] [address] documented as of this encounter Goals Goal [...] - 145 mmol/L 01/15/2025 2:05 PM EDT [facility] Potassium 4.0 3.5 - 5.0 mmol/L 01/15/2025 2:05 PM EDT [facility] Chloride 107 98 - 107 mmol/L 01/15/2025 2:05 PM EDT [facility] Total CO2 25 22 - 29 mmol/L 01/15/2025 2:05 PM EDT [facility] Anion Gap 8 7 - 16 mmol/L 01/15/2025 2:05 PM EDT [facility] Calcium 9.3 8.6 - 10.4 mg/dL 01/15/2025 2:05 PM EDT [facility] Glucose Lvl 88 70 - 99 mg/dL 01/15/2025 2:05 PM EDT [facility] BUN 13 6 - 20 mg/dL 01/15/2025 2:05 PM EDT [facility] Creatinine 0.85 0.51 - 1.30 mg/dL 01/15/2025 2:05 PM EDT [facility] Albumin 4.0 3.5 - 5.2 gm/dL 01/15/2025 2:05 PM EDT [facility] Total Protein 6.7 6.4 - 8.3 gm/dL 01/15/2025 2:05 PM EDT [facility] Bili Total 0.3 0.2 - 1.3 mg/dL 01/15/2025 2:05 PM EDT [facility] ALT 8 <=41 U/L 01/15/2025 2:05 PM EDT [facility] AST 14 <=40 U/L 01/15/2025 2:05 PM EDT [facility] Alk Phos 124(H) 36 - 123 U/L 01/15/2025 2:05 PM EDT [facility] eGFR (CKD-EPIcr 2020) 79 >=60 mL/min/1.7 3 m2 01/15/2025 2:05 PM EDT [facility] Comment:Estimated GFR was ca lculated using the CKD-EPIcr (2020) equation refit without race. The equation is recommended by the National Kidney Foundation - [place] Society of Nephrology Task Force. Blood VENOUS BLOOD / Unknown Venipuncture / Unknown 01/15/2025 1:41 PM EDT 01/15/2025 1:44 PM EDT us Heydi Sorensen APRN CHEMISTRY ORDERABLES Final Res ult [facility] 1 [place] [address] * (ABNORMAL) CBC WITH DIFF (01/15/2025 1:41 PM EDT) WBC 4.5 3.7 - 10.3 x10(3)/mc L 01/15/2025 1:49 PM EDT [facility] RBC 3.40(L) 3.90 - 5.20 x10(6)/mc L 01/15/2025 1:49 PM EDT [facility] Hgb 10.3(L) 11.2 - 15.7 g/dL 01/15/2025 1:49 PM EDT [facility] Hct 31.7(L) 34.0 - 45.0 % 01/15/2025 1:49 PM EDT [facility] MCV 93.2 80.0 - 100.0 fL 01/15/2025 1:49 PM EDT [facility] MCH 30.3 26.0 - 34.0 pg 01/15/2025 1:49 PM EDT [facility] MCHC 32.5 30.7 - 35.5 g/dL 01/15/2025 1:49 PM EDT [facility] RDW 14.7 <=14.9 % 01/15/2025 1:49 PM EDT [facility] Platelet 165 155 - 369 x10(3)/mc L 01/15/2025 1:49 PM EDT [facility] MPV 8.4(L) 8.8 - 12.5 fL 01/15/2025 1:49 PM EDT [facility] Neut # Prelim 2.9 1.6 - 6.1 x10(3)/mc L 01/15/2025 1:49 PM EDT [facility] Comment:Preliminary automate d absolute neutrophil count. Value may change if manual differential is indicated. Neut Percent 64.2 % 01/15/2025 1:49 PM EDT [facility] Comment:Neutrophils equals s egs plus bands Imm Gran% 0.2 % 01/15/2025 1:49 PM EDT [facility] Comment:Automated count of m etamyelocytes, myelocytes and promyelocytes. Lymph Percent 28.3 % 01/15/2025 1:49 PM EDT [facility] [place] Percent 5.3 % 01/15/2025 1:49 PM EDT [facility] Eos Percent 1.3 % 01/15/2025 1:49 PM EDT [facility] Baso Percent 0.7 % 01/15/2025 1:49 PM EDT [facility] Neut # 2.9 1.6 - 6.1 x10(3)/mc L 01/15/2025 1:49 PM EDT [facility] Comment:Neutrophils equals s egs plus bands IMMGRAN# 0.0 0.0 - 0.1 x10(3)/mc L 01/15/2025 1:49 PM EDT [facility] Comment:Automated count of m etamyelocytes, myelocytes and promyelocytes. An absolute IG <0.1 is reported as 0.0. Lymph # 1.3 1.2 - 3.9 x10(3)/mc L 01/15/2025 1:49 PM EDT [facility] [place] # 0.2(L) 0.3 - 0.9 x10(3)/mc L 01/15/2025 1:49 PM EDT [facility] Eos# 0.1 0.0 - 0.5 x10(3)/mc L 01/15/2025 1:49 PM EDT [facility] Baso # 0.0 0.0 - 0.1 x10(3)/mc L 01/15/2025 1:49 PM EDT [facility] Blood VENOUS BLOOD / Unknown Venipuncture / Unknown 01/15/2025 1:41 PM EDT 01/15/2025 1:44 PM EDT us Heydi Sorensen WARPER CREELER HEMATOLOGY ORDERABLES Final Re sult [facility] 1 [place] [address] documented in this encounter Visit [...] documented as of this encounter Care Teams Ad Trafficker Relationship Specialty [place] [address] [place] [address] PCP - General 06/21/10 Arlyn Schmidt MD [address] [place] [address] Consulting Physician Internal Medicine-Endocrinology, Diabetes & Metabolism 11/28/20 Tacho Echavarria MD 1 [place], [place] [phone] Internal Medicine-Medical Oncology 11/12/23 Matt Ulrich MD 1 [place], [place] [phone] Surgery-Surgical Oncology 12/04/23 Eze Brock Pastoral Care 12/13/23 Annette Walker, SITE DIRECTOR Crew Leader Gluing 05/13/24 Batool Celis MD 1 [facility] [place] [address] Radiation Oncologist Radiology-Radiation Oncology 06/08/24 documented as of this encounter
--- OUTSIDE RECORDS SUMMARY | 2025-01-15 13:30 | XMS_ITS | Encounter Summary ---
Author Organization 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 Never 11/07/2023 [facility] Utilities Answer Date Recorded In the past 12 months has e [employer], gas, oil, or water [employer] threatened to shut off services in your [...] Date Recorded PHQ-2 Total Score 5 07/07/2024 [facility] [place] of Occupat ional Health - Occupational Stress [...] time in the past 12 m [facility], were you homeless or living in a nursing home (including now)? No 11/07/[address] [facility] IP Transportation Answer D ate [...] 4 fluticasone propionate (FLONASE) 50 mcg/actuation Nasl [place], Suspension 1 [place] by Nasal route daily. 1 Each 11 [...] EDT Procedure visit [facility] [address] [facility] [address] [place] [address] Samm Ledesma APRN [address] [facility] [facility] [facility] [address] [place] [address] 03/10/2025 12:30 PM EDT Appointment [facility] One [place], [place] [phone] Tacho Echavarria MD 1 [place] [address] 03/10/2025 1:00 PM EDT Appointment [facility] Care Medical Oncology [place], [place] 7227117 Tacho Echavarria MD [address] [place] [address] [id number] 04/29/2025 9:15 AM EDT Appointment [place] [address] Batool Celis MD [address] [facility] [address] CANCER CARE [place], [place] [phone] 05/19/2025 2:15 PM EST Office Visit [address] [place] [address] Sin Tran MD [address] [place] [address] 08/12/2025 10:40 AM EST Appointment [facility] Women's Wellness [facility] [place] [address] Matt Ulrich MD [address] [place] [address] 254 [place] [address] documented as of this encounter Goals Goal [...] documented as of this encounter Care Teams Data Processing Supervisor Relationship Specialty [place] [address] [place] [address] PCP - General 06/21/10 Arlyn Schmidt MD [address] [place] [address] Consulting Physician Internal Medicine-Endocrinology, Diabetes & Metabolism 11/28/20 Tacho Echavarria MD 1 [place] [address] Internal Medicine-Medical Oncology 11/12/23 Matt Ulirch MD [address] [place] [address] Surgery-Surgical Oncology 12/04/23 Eze Brock Pastoral Care 12/13/23 Annette Walker, ARACELI Die Cutting Machine Operator 05/13/24 Batool Celis MD [address] [place] [address] [place] [address] Radiation Oncologist Radiology-Radiation Oncology 06/08/24 documented as of this encounter
--- OUTSIDE RECORDS SUMMARY | 2025-02-02 11:20 | XMS_ITS | Encounter Summary ---
Author Organization [place] [address] Care Team Providers Care District Court Bailiff Name Role Phone Chetna Cedeno MD Primary Care Provider [phone] Arlyn Schmidt MD Unavailable [phone] Tacho Echavarria MD Unavailable [phone] Matt Ulrich MD Unavailable [phone] Eze Brock Unavailable Annette Walker Unavailable Batool Celis MD Unavailable [phone] Encounter Details Date Type Department Care Team (Late st Contact Info) Description 02/02/2025 11:20 AM EDT Telemedicine [facility] NEUROLOGY HECTOR [address] [facility] [address] [place] [address] Samm Ledesma, GEOGRAPHICAL HISTORIAN [address] [place] [address] Chronic migraine without aura, intractable, with status [...] your doctor or pharmacy? Never 11/07/2023 [facility] Utilities Answer Date Recorded In [...] often do you attend chur ch or scientologist services? 1 to 4 times per year [...] time in the past [address] [facility], were you homeless or living in a intermediate (including now)? No 11/07/2023 [facility] IP Transportation [...] follows with oncology and surgical oncology at [place]. She has had more numbness, tingling, pain [...] been off chemo since May 2024. Plans tostart radiation soon. She reports a history of [...] potassium, diarrhea in the lungs at [facility]. Allergies: allergy list reviewed and accurate PMHx: [...] by mouth 3 times daily. for abdominal [id number] Capsule 0 DULoxetine (CYMBALTA) 30 mg Oral [...] 6 fluticasone propionate (FLONASE) 50 mcg/actuation Nasl [place], Suspension 1 [place] by Nasal route daily. 1 Each 11 [...] level: High school graduate Occupational History Employer: [employer] Tobacco Use Smoking status: Never Passive exposure: [...] true Transportation Needs: No Transportation Needs (07/07/2024) [facility] IP Transportation In the past 12 months, has lack of reliable transportation kept you from medical appointments, meetings, work or from getting things needed for daily living?: No Physical Activity: Insufficiently Active (07/07/2024) Exercise Vital Sign Days of Exercise per Week: 3 days Minutes of Exercise per Session: 40 min Stress: Stress Concern Present (07/07/2024) [place] of Occupational Health - Occupational Stress Questionnaire Feeling of Stress : Rather much Social Connections: Socially Isolated (11/07/2023) Social Connection and Isolation Panel [NHANES] Frequency of Communication with Friends and Family: Once a week Frequency of Social Gatherings with Friends and Family: Once a week Attends Hindu Services: 1 to 4 times per year Active Member of Clubs or Organizations: No Attends Club or Organization Meetings: Never Marital Status: Never Intimate Partner Violence: Not At Risk (11/07/2023) Humiliation, Afraid, Rape, and Kick questionnaire Fear of Current or Ex-Partner: No Emotionally Abused: No Physically Abused: No Sexually Abused: No Housing Stability: No Transportation Needs (02/24/2024) Received from [facility] Yearly Questionnaire Do you need any assistance [...] a video visit does not replace a xgeq-kb-tigc exam and further service may be necessary. I advised the patient that we are conducting his/her video visit through the office in a private space onour secure network and this video visit is being conducted in accordance with [facility] telehealth/video visit regulations. Patient had no [...] Procedure visit [facility] NEUROLOGY [facility]ECTOR [address] [facility] [address] [place] [address] Samm Ledesma APRN [address] [place] [address] 03/10/2025 12:30 PM EDT Appointment [place] [address] Tacho Echavarria MD [address] [place] [address] 03/10/2025 1:00 PM EDT Appointment [facility] [place] [address] Tacho Echavarria MD [address] [place] [address] 04/29/2025 9:15 AM EDT Appointment [facility] [place] [address] Batool Celis MD [address] [place] [address] [place] [address] 05/19/2025 2:15 PM EST Office Visit [facility] [address] [facility] [address] [place] [address] Sin Tran MD [address] [place] [address] 08/12/2025 10:40 AM EST Appointment [facility] Women's Wellness [facility] [place] [address] Matt Ulrich MD [address] [place] [address] [address] [place] [address] documented as of this encounter Goals Goal [...] documented as of this encounter Care Teams District Court Bailiff Relationship Specialty [place] [address] [place] [address] PCP - General 06/21/10 Arlyn Schmidt MD [address] [place], [place] [address] Consulting Physician Internal Medicine-Endocrinology, Diabetes & Metabolism 11/28/20 Tacho Echavarria MD 1 [place], [place] [phone] Internal Medicine-Medical Oncology 11/12/23 Matt Ulrich MD 1 [place] [address] Surgery-Surgical Oncology 12/04/23 Eze Brock Pastoral Care 12/13/23 Annette Walker, PHILOSOPHY FACULTY Pipelayer 05/13/24 Batool Celis MD 1 [facility] [place] [address] Radiation Oncologist Radiology-Radiation Oncology 06/08/24 documented as of this encounter
--- OUTSIDE RECORDS SUMMARY | 2025-02-04 11:00 | XMS_ITS | Encounter Summary ---
Author Organization [place] [address] Care Team Providers Care Knotting Machine Operator Portable Name Role Phone Chetna Cedeno MD Primary Care Provider [phone] Arlyn Schmidt MD Unavailable [phone] Tacho Echavarria MD Unavailable [phone] Matt Ulrich MD Unavailable [phone] Eze Brock Unavailable Annette Walker Unavailable [phone] Batool Celis MD Unavailable [phone] Reason for Referral * Consultation (Routine) - Pending Review Specialty Diagnoses / Procedures Referred By Contac t Referred To Contact Diagnoses Invasive ductal carcinoma of breast, female, right (HCC) Procedures [place] OFFICE/OUTPATIENT NEW MODERATE MDM 45 MINUTES Naya García PA-C [address] [place] [address] Phone: tel: fax: Referral ID Status Reason Start Date Expiration Date V isits Requested Visits Authorized [id number] Pending Review 02/04/2025 02/04/2026 1 1 Question Answer Patient Status In Treatment - Survivorship visit today/not new diagnosis Reason for referral? Survivorship * Mammography (Routine) - Pending Review Specialty Diagnoses / Procedures Referred By Van butler Referred To Contact Radiology Diagnoses Encounter for screening mammogram for breast cancer Procedures MM MAMMO DIGITAL STEPHANE SCREEN LEFT Naya García PA-C [address] [place] [address] [address] [place] [address] Phone: tel: fax: Referral ID Status Reason Start Date Expiration Date V isits Requested Visits Authorized [id number] Pending Review 02/04/2025 02/04/2027 1 1 Reason for Visit * Reason Comments Follow-up Survivorship Encounter Details Date Type Department Care Team (Latest Contact Info) Description 02/04/2025 11:00 AM EDT - 02/04/2025 1:47 PM EDT Hospital Encounter [facility] Women's [facility] [place] [address] Tacho Echavarria MD [address] [place] [address] Naya García PA-C [address] [place] [address] [address] [place] [address] Invasive ductal carcinoma of breast, female, right [...] Score 5 07/07/2024 [facility] - Occupational Stress Questionnaire Answer Date Recorded [...] in a half-way (including now)? No 11/07/2023 [facility] Transportation Answer D ate [...] fluticasone propionate (FLONASE) 50 mcg/actuation Nasl [place], Suspension 1 [place] by Nasal route daily. 1 Each 11 [...] back pain. Family Hx updated. Discharged from [facility] yesterday, states had a blood clot in her left lung and taking blood thinner as recommended. Gait is steady with use of walker. Patient to meet with Annette/socialservice after her appointment today. Assessed patient's nutritional [...] fits ok. She was recently in [facility] and diagnosed with PE. On blood thinner. [...] cancer support group GENETICS/FAMILY HISTORY: Genetics Negative ([employer] Hereditary Cancer 67-gene panel). No new family [...] Invasive ductal carcinoma, grade 3 ER 80%, SD 11%, Her2 negative B. Breast, right, 5:00 Invasive ductal carcinoma grade 3 ER 92%, SD 55%, Her2 negative 11/11/2023 - Consult Initial [...] to GI tolerance for 2 yr planned ([place]-E regimen) 10/2024 - changed to Aromasin d/t [...] Stage IIIB (cT3, cN3a(f), cM0, G3, ER+, SD+, HER2-) Pathologic Stage ypT3, ypN3a, G3, ER+, SD+, HER2- 02/04/2025 - Other Naya García PA-C [...] Stage IIIB (cT3, cN3a(f), cM0, G3, ER+, SD+, HER2-) - Unsigned - Pathologic stage from 07/06/2024: ypT3, ypN3a, G3, ER+, SD+, HER2- - Unsigned RECENT IMAGING: Right MTX [...] by mouth 3 times daily. for abdominal [id number] Capsule 0 DULoxetine (CYMBALTA) 30 mg Oral [...] 6 fluticasone propionate (FLONASE) 50 mcg/actuation Nasl [place], Suspension 1 [place] by Nasal route daily. 1 Each 11 [...] GASTRECTOMY ; Surgeon: Marcus Perez MD; Location: [facility] OR; Service: General IR 2 LEVEL BILATERAL [...] SACRAL SINGLE LVL 08/03/2022 Sin Tran MD [facility] IMAGING IR PORT PLACEMENT EQUAL OR > 5 YEARS 11/29/2023 IR PORT PLACEMENT EQUAL OR > 5 YEARS 11/29/2023 Joselito Goodwin MD [facility] IR LUMBAR DISC SURGERY 09/11/2012 LUMBAR LAMINECTOMY & DISCECTOMY L4-5 LEFT ; Surgeon: Hetal Borden MD; MASTECTOMY Right 07/06/2024 Right modified radical mastectomy; Surgeon: Matt Ulrich MD; Location: [facility] MAIN OR; Service:General SPINE SURGERY N/A 01/04/2021 PAIN PUMP PERMANENT IMPLANT; Surgeon: Munir Hilton MD; Location: [facility] OR; Service: Pain Management THORACIC SPINE SURGERY N/A 02/24/2020 SPINAL CORD STIMULATOR IMPLANT; Surgeon: Munir Hilton MD; Location: [facility] OR; Service: Pain Management TONSILLECTOMY UPPER GASTROINTESTINAL ENDOSCOPY UPPER GASTROINTESTINAL ENDOSCOPY N/A 01/26/2015 ESOPHAGOGASTRODUODENOSCOPY with biopsy and davis dilation; Surgeon: Stone Cronin MD; Location: [facility] ENDOSCOPY; Service: Endoscopy Allergies Allergen [...] level: High school graduate Occupational History Employer: [id number] Tobacco Use Smoking status: Never Passive exposure: [...] true Transportation Needs: No Transportation Needs (07/07/2024) [facility] IP Transportation In the past 12 months, has lack of reliable transportation kept you from medical appointments, meetings, work or from getting things needed for daily living?: No Physical Activity: Insufficiently Active (07/07/2024) Exercise Vital Sign Days of Exercise per Week: 3 days Minutes of Exercise per Session: 40 min Stress: Stress Concern Present (07/07/2024) [place] Citizen [place] of Occupational Health - Occupational Stress Questionnaire Feeling of Stress : Rather much Social Connections: Socially Isolated (11/07/2023) Social Connection and Isolation Panel [NHANES] Frequency of Communication with Friends and Family: Once a week Frequency of Social Gatherings with Friends and Family: Once a week Attends Nondenominational Services: 1 to 4 times per year Active Member of Clubs or Organizations: No Attends Club or Organization Meetings: Never Marital Status: Never Intimate Partner Violence: Not At Risk (11/07/2023) Humiliation, Afraid, Rape, and Kick questionnaire Fear of Current or Ex-Partner: No Emotionally Abused: No Physically Abused: No Sexually Abused: No Housing Stability: No Transportation Needs (02/24/2024) Received from [facility] Yearly Questionnaire Do you need any [...] care of this patient. Naya García PA-C [facility] Total time approx. 50 minutes, including review of notes, [id number]-[id number] interaction, and documentation. Reviewed past pathology and [...] to access video: Lymphatic Massage YouTube Video [email or web address] Discuss DEXA scan with medical oncology, your last in our system was on 12/29/20. Breast Health Nurse Contact - Report new changes by calling the Breast Health Nurse Line at [phone]. Please remember the nurse checks voice mail messages throughout the day. However, if the nurse taking care of the phone messages is with another patient, she may not be able to return your call until later in the day. If you need immediate assistance or if there is an emergency, please call your doctor's number or go tothe Emergency Room. Desiree The number to our Boutique is [phone]. You may call to set up an [...] off all the clothes above your waist. creative services intern front of a mirror in a room [...] circles with your fingers. For the first manzanita, press lightly. Forthe second manzanita, press harder. For the third manzanita, press even harder. Keep making circles with [...] breast in the same way. Sit or casting and curing operator the shower or tub. With soapy water [...] 12/10/2008 Document Revised: 11/29/2016 Document Reviewed: 05/13/2016 [employer] Interactive Patient Education ?? 2018 [employer] It is best not to drink [...] almonds. Get enough vitamin D - recommend 0389-8424 IU/day Vitamin D is the most essential [...] [address] [place] [address] Samm Ledesma APRN [address] [place] [address] 03/10/2025 12:30 PM EDT Appointment [facility] [place] [address] Tacho Echavarria MD [address] [place] [address] 03/10/2025 1:00 PM EDT Appointment [facility] [place], [place] [id number] Tacho Echavarria MD [address] [place] [address] 04/29/2025 9:15 AM EDT Appointment [facility] [place] [address] Batool Celis MD [address] [facility] [place], [place] [id number] 05/19/2025 2:15 PM EST Office Visit [facility] [address] [place] [address] [address] [address] Sin Tran MD [address] [place], [place] [address] [address] 08/12/2025 10:40 AM EST Appointment [facility] Women's Wellness [facility] Matt Ulrich MD [address] [facility] [address] [place] [address] Scheduled Orders Name Type Priority Associated Diagnoses [...] documented as of this encounter Care Teams Knotting Machine Operator Portable Relationship Specialty [place] [address] [place] [id number] PCP - General 06/21/10 Arlyn Schmidt MD [address] [place] [address] Consulting Physician Internal Medicine-Endocrinology, Diabetes & Metabolism 11/28/20 Tacho Echavarria MD [address] [place] [address] Internal Medicine-Medical Oncology 11/12/23 Matt Ulrich MD 1 [place] [address] Surgery-Surgical Oncology 12/04/23 Eze Brock Pastoral Care 12/13/23 Annette Walker MSW Manager Background 05/13/24 Batool Celis MD [address] [place] [address] Radiation Oncologist Radiology-Radiation Oncology 06/08/24 documented as of this encounter
--- OUTSIDE RECORDS SUMMARY | 2025-02-04 13:48 | XMS_ITS | Encounter Summary ---
Author Organization [place] [address] Care Team Providers Care Cattle Examiner Name Role Phone Chetna Cedeno MD Primary Care Provider [phone] Arlyn Schmidt MD Unavailable [phone] Tacho Echavarria MD Unavailable [phone] Matt Ulrich MD Unavailable [phone] Eze Brock Unavailable Annette Walker Unavailable [phone] Batool Cleis MD Unavailable [phone] Encounter Details Date Type Department Care Team (Latest Contact Info) Description 02/04/2025 1:48 PM EDT - 02/04/2025 2:02 PM EDT Hospital Encounter [facility] [place], [place] [phone] Tacho Echavarria MD [address] [place] [address] [phone] Invasive ductal carcinoma of breast, female, right [...] from your doctor or pharmacy? Never 11/07/2023 [facility] Utilities Answer Date Recorded In the [...] often do you attend chur ch or protestant services? 1 to 4 times per year [...] time in the past 12 m [facility], were you homeless or living in a alf (including now)? No 11/07/2023 [facility] IP Transportation Answer D ate Recorded [...] 4 fluticasone propionate (FLONASE) 50 mcg/actuation Nasl [place], Suspension 1 [place] by Nasal route daily. 1 Each 11 [...] HECTOR [address] [facility] [address] [place] [address] Samm Ledesma APRN [address] [place] [address] 03/10/2025 12:30 PM EDT Appointment [place] [address] Tacho Echavarria MD [address] [place] [address] 03/10/2025 1:00 PM EDT Appointment [facility] Medical Oncology [place], [place] [phone] Tacho Echavarria MD [address] [place] [address] 04/29/2025 9:15 AM EDT Appointment [facility] [place] [address] Batool Celis MD 1 [facility] [place] [address] 05/19/2025 2:15 PM EST Office Visit [address] [address] Sin Tran MD [address] [place] [address] 08/12/2025 10:40 AM EST Appointment [facility] Women's Wellness [facility] [place] [address] Matt Ulrich MD [address] [place] [address] documented as of this encounter Goals Goal Patient Goal Type Associated Problems Recent Progress Patient-Stated? Author Blood Pressure < 140/90 Blood Pressure 121/77(02/04 2:04 PM EDT) No Chetna Cedeno MD Breast [facility] Breast Health On track(2024 11:27 AM EDT) No Jasmin Porter, RAUL Note: Patient acknowledges understanding of new diagnosis, plan of care, available resources and how to contact Nurse Navigator with any future questions or concerns. Breast [facility] Breast Health Not on track(2024 11:27 AM EDT) No Jasmin Porter, RAUL Note: Patient will be compliant with monthly SBE and is aware of who to contact for any unusual or concerning findings. Breast [facility] Breast Health On track(2024 11:27 AM EDT) [...] B12/ FOLIC ACID (02/04/2025 2:03 PM EDT) Vitamin B12 271 232 - 1,245 pg/mL 02/04/2025 4:31 PM EDT [facility] [employer], [facility] Folate 6.16 >=4.80 ng/mL 02/04/2025 4:31 PM EDT [facility] Blood VENOUS BLOOD / Unknown Venipuncture / Unknown 02/04/2025 2:03 PM EDT 02/04/2025 2:03 PM EDT Narrative [facility] - 02/04/2025 4:31 PM EDT Ingestion of haroon doses of biotin (>5 mg/day) taken within 8 hours of drawing blood sample can interfere with this immunoassay test. Tacho Echavarria MD CHEMISTRY ORDERABLES Final Result [facility] [address] [facility] , [address] [place] [phone] * (ABNORMAL) CBC WITH DIFF (02/04/2025 2:03 PM EDT) WBC 8.1 3.7 - 10.3 x10(3)/mc L 02/04/2025 2:07 PM EDT [facility] RBC 2.95(L) 3.90 - 5.20 x10(6)/mc L 02/04/2025 2:07 PM EDT [facility] Hgb 9.4(L) 11.2 - 15.7 g/dL 02/04/2025 2:07 PM EDT [facility] Hct 28.1(L) 34.0 - 45.0 % 02/04/2025 2:07 PM EDT [facility] MCV 95.3 80.0 - 100.0 fL 02/04/2025 2:07 PM EDT [facility] MCH 31.9 26.0 - 34.0 pg 02/04/2025 2:07 PM EDT [facility] MCHC 33.5 30.7 - 35.5 g/dL 02/04/2025 2:07 PM EDT [facility] RDW 15.0(H) <=14.9 % 02/04/2025 2:07 PM EDT [facility] Platelet 163 155 - 369 x10(3)/mc L 02/04/2025 2:07 PM EDT [facility] MPV 8.8 8.8 - 12.5 fL 02/04/2025 2:07 PM EDT [facility] Neut # Prelim 5.6 1.6 - 6.1 x10(3)/mc L 02/04/2025 2:07 PM EDT [facility] Comment:Preliminary automate d absolute neutrophil count. Value may change if manual differential is indicated. Neut Percent 68.4 % 02/04/2025 2:07 PM EDT [facility] Comment:Neutrophils equals s egs plus bands Imm Gran% 0.2 % 02/04/2025 2:07 PM EDT [facility] Comment:Automated count of m etamyelocytes, myelocytes and promyelocytes. Lymph Percent 23.4 % 02/04/2025 2:07 PM EDT [facility] [place] Percent 5.7 % 02/04/2025 2:07 PM EDT [facility] Eos Percent 2.1 % 02/04/2025 2:07 PM EDT [facility] Baso Percent 0.2 % 02/04/2025 2:07 PM EDT [facility] Neut # 5.6 1.6 - 6.1 x10(3)/mc L 02/04/2025 2:07 PM EDT [facility] Comment:Neutrophils equals s egs plus bands IMMGRAN# 0.0 0.0 - 0.1 x10(3)/mc L 02/04/2025 2:07 PM EDT [facility] Comment:Automated count of m etamyelocytes, myelocytes and promyelocytes. An absolute IG <0.1 is reported as 0.0. Lymph # 1.9 1.2 - 3.9 x10(3)/mc L 02/04/2025 2:07 PM EDT [facility] [place] # 0.5 0.3 - 0.9 x10(3)/mc L 02/04/2025 2:07 PM EDT [facility] Eos# 0.2 0.0 - 0.5 x10(3)/mc L 02/04/2025 2:07 PM EDT [facility] Baso # 0.0 0.0 - 0.1 x10(3)/mc L 02/04/2025 2:07 PM EDT [facility] Blood VENOUS BLOOD / Unknown Venipuncture / Unknown 02/04/2025 2:03 PM EDT 02/04/2025 2:03 PM EDT us Tacho Echavarria MD HEMATOLOGY ORDERABLES Final Result Performing Organization Address [facility] de Phone Number [facility] 1 [place] [address] * IRON+TIBC (02/04/2025 2:02 PM EDT) Pathologist [facility] Iron 82 30 - 160 mcg/dL 02/04/2025 [...] CHEMISTRY ORDERABLES Final Result Performing Organization Address [facility] de Phone Number [facility] 1 [place] [address] [facility], [facility] [address] [facility], [place] [address] * (ABNORMAL) COMPREHENSIVE METABOLIC PANEL (02/04/2025 2:02 PM EDT) [facility] Sodium 142 136 - 145 mmol/L 02/04/2025 2:28 PM EDT [facility] Potassium 3.3(L) 3.5 - 5.0 mmol/L 02/04/2025 2:28 PM EDT [facility] Chloride 108(H) 98 - 107 mmol/L 02/04/2025 2:28 PM EDT [facility] Total CO2 19(L) 22 - 29 mmol/L 02/04/2025 2:28 PM EDT [facility] Anion Gap 15 7 - 16 mmol/L 02/04/2025 2:28 PM EDT [facility] Calcium 8.6 8.6 - 10.4 mg/dL 02/04/2025 2:28 PM EDT [facility] Glucose Lvl 134(H) 70 - 99 mg/dL 02/04/2025 2:28 PM EDT [facility] BUN 12 6 - 20 mg/dL 02/04/2025 2:28 PM EDT [facility] Creatinine 0.78 0.51 - 1.30 mg/dL 02/04/2025 2:28 PM EDT [facility] Albumin 3.8 3.5 - 5.2 gm/dL 02/04/2025 2:28 PM T [facility] Total Protein 6.0(L) 6.4 - 8.3 gm/dL 02/04/2025 2:28 PM EDT [facility] Bili Total 0.3 0.2 - 1.3 mg/dL 02/04/2025 2:28 PM EDT [facility] ALT 8 <=41 U/L 02/04/2025 2:28 PM T [facility] AST 12 <=40 U/L 02/04/2025 2:28 PM T [facility] Alk Phos 95 36 - 123 U/L 02/04/2025 2:28 PM T [facility] eGFR (CKD-EPIcr 2020) 88 >=60 mL/min/1.7 3 m2 02/04/2025 2:28 PM T [facility] Comment:Estimated GFR was ca lculated using the CKD-EPIcr (2020) equation refit without race. The equation is recommended by the National Kidney Foundation - [place] Society of Nephrology Task Force. Blood VENOUS BLOOD / Unknown Venipuncture / Unknown 02/04/2025 2:02 PM EDT 02/04/2025 2:02 PM EDT Tacho Echavarria MD CHEMISTRY ORDERABLES Final Result [facility] [address] [address] documented in this encounter Visit Diagnoses [...] documented as of this encounter Care Teams Cattle Examiner Relationship Specialty [place] [address] [place] [phone] PCP - General 06/21/10 Arlyn Schmidt MD [address] [place] [address] Consulting Physician Internal Medicine-Endocrinology, Diabetes & Metabolism 11/28/20 Tacho Echavarria MD 1 [place] [address] Internal Medicine-Medical Oncology 11/12/23 Matt Ulrich MD 1 [place] [address] Surgery-Surgical Oncology 12/04/23 Eze Brock Pastoral Care 12/13/23 Annette Walker, ZONE SUPERVISOR [employer] Barge Engineer 05/13/24 Batool Celis MD 1 [facility] [place] [address] Radiation Oncologist Radiology-Radiation Oncology 06/08/24 documented as of this encounter
--- OUTSIDE RECORDS SUMMARY | 2025-02-04 14:03 | XMS_ITS | Encounter Summary ---
Author Organization [place] [address] Care Team Providers Care Engineering Coordinator Name Role Phone Chetna Cedeno MD Primary Care Provider [phone] Arlyn Schmidt MD Unavailable [phone] Tacho Echavarria MD Unavailable [phone] Matt Ulrich MD Unavailable [phone] Eze Brock Unavailable Annette Walker Unavailable [phone] Batool Celis MD Unavailable [phone] Reason for Visit * Reason Comments Follow-up Breast Cancer Encounter Details Date Type Department Care Team (Latest Contact Info) Description 02/04/2025 2:03 PM EDT - 02/04/2025 11:59 PM EDT Hospital Encounter Cancer Care Medical Oncology [place], [place] [phone] Tacho Echavarria MD [address] [place] [address] [phone] Invasive ductal carcinoma of breast, female, right [...] your doctor or pharmacy? Never 11/07/2023 [facility] Utilities Answer Date Recorded In the [...] any time in the past 12 m [facility], were you homeless or living in a fdc (including now)? No 11/07/2023 [facility] IP Transportation Answer D ate Recorded [...] 4 fluticasone propionate (FLONASE) 50 mcg/actuation Nasl Hank[place], Suspension 1 [place] by Nasal route daily. 1 Each 11 [...] were not included. Patient: El Cole CSN: [id number] Date of : 1965 Age: 59 y.o. Date of Service: 02/04/2025 HEMATOLOGY/ONCOLOGY FOLLOW UP VISIT Primary Ship Ceiler & Oncologist: Tacho Echavarria MD. Patient Care Team: Chetna Cedeno MD as PCP - General Arlyn Schmidt MD as Consulting Physician (Internal Medicine-Endocrinology, Diabetes & Metabolism) Tacho Echavarria MD (Internal Medicine-Medical Oncology) Matt Ulrich MD (Surgery-Surgical Oncology) Eze Brock as Pastoral Care Annette Walker MSW as Bullet Assembly Press Operator Batool Celis MD as Radiation Oncologist (Radiology-Radiation Oncology) 2nd OPINION [facility] EVAL: [place], [place]: Dr Beata [place]: [phone] Next of Kin: Daughter Ruthy Man ([phone]) Patient Contact info: [phone] DIAGNOSIS HISTORY DATE OF INITIAL CONSULTATION: 11/14/23; outside 2nd opinion at on 09/23/2024 CURRENT TREATMENT BREAST CA: adjuvant Vallonia-E regimen: Aromasin 25mg po daily + dose titration up of Abemacyclib (Verzenio) 50mg po bid -> 100 mg po bid, per NCCN guidelines PE (02/02/25, at [facility]) and 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 Breast, right, 6:00, Invasive ductal carcinoma, grade 3 ER 80%, UT 11%, Her2 negative B. Breast, right, 5:00 Invasive ductal carcinoma grade 3 ER 92%, UT 55%, Her2 negative 11/11/2023 - Consult Initial [...] to GI tolerance for 2 yr planned ([place]-E regimen) 10/2024 - changed to Aromasin d/t [...] Stage ypT3, ypN3a, G3, ER+, UT+, HER2- 02/04/2025 - Other Naya García PA-C [...] CalcPt Dosage Given to Date in Gy 10.96646777 Session Dosage Given in Gy 2.27715630 Reference Point ID LN Boost RP Dosage Given to Date in Gy 10 Session Dosage Given in Gy 1.13455846 Reference Point ID [id number] ISO Dosage Given to Date in Gy 40.83151086 Session Dosage Given in Gy 0.42537989 Plan ID BH Nd Boost Plan Name [...] GASTRECTOMY ; Surgeon: Marcus Perez MD; Location: [facility] MAIN OR; Service: General IR 2 LEVEL [...] > 5 YEARS 11/29/2023 Joselito Goodwin MD [facility] IR LUMBAR DISC SURGERY 09/11/2012 LUMBAR LAMINECTOMY & DISCECTOMY L4-5 LEFT ; Surgeon: Hetal Borden MD; MASTECTOMY Right 07/06/2024 Right modified radical mastectomy; Surgeon: Matt Ulrich MD; Location: [facility] MAIN OR; Service:General SPINE SURGERY N/A 01/04/2021 PAIN PUMP PERMANENT IMPLANT; Surgeon: Munir Hilton MD; Location: [facility] MAIN OR; Service: Pain Management THORACIC SPINE SURGERY N/A 02/24/2020 SPINAL CORD STIMULATOR IMPLANT; Surgeon: Munir Hilton MD; Location: [facility] MAIN OR; Service: Pain Management TONSILLECTOMY UPPER [...] Complaint Patient presents with Follow-up Breast Cancer MsReyna Cole comes in today (02/04/2025) for an [...] agent therapy, also reinforced via consult at [email or web address] [place]. Now being seen post hospital discharge [...] help with use of Cymbalta. Was at [facility] and wanting to request transfer of [facility] records to oncology clinic there. ECOG [...] Device fluticasone propionate (FLONASE) 50 mcg/actuation Nasl Hank[place], Suspension Inhalational Spacing Device (AEROCHAMBER MV) Misc [...] Gran% 0.2 % Lymph Percent 23.4 % [place] Percent 5.7 % Eos Percent 2.1 % Baso Percent 0.2 % Neut # 5.6 1.6 - 6.1 x10(3)/mcL IMMGRAN# 0.0 0.0 - 0.1 x10(3)/mcL Lymph # 1.9 1.2 - 3.9 x10(3)/mcL [place] # 0.5 0.3 - 0.9 x10(3)/mcL Eos# [...] G43.719-Chronic migraine without aura, intractable, without status [id number]. COMPARISON: Multiple priors with the latest MRI [...] Oliva MD Performing Provider Shaylee Roque???LOUIE Restrepo RESTAURANT ASSISTANT MANAGER Viv Martinez RN Cable Hooker Madelyn Sidhu RN Endoscopy Nurse Aliya Friedman [...] Tissue Small Intestine, Duodenum PATHOLOGY TISSUE REQUEST Kign Oliva MD 12/01/2024 1059 2 : gastric [...] outside facility Neurosurgeon (Dr Benoit Duke at [facility]) and no need for surgical resection now, surveillance plan defined in his note of 02/24/24 noted Chemo induced anemia - as expected, stable cont 1 tab MVI po daily, asked for borderline VIT B12 tostart VIT B12 1000 mcg po daily otc PE/ Prothrombin gene carrier - obtaining records from [facility], meanwhile stay on FDAapproved dosing of JUSTYN [...] Tacho Echavarria MD Hematology and Medical Oncology [facility] [phone] *This note was dictated using voice recognition [...] also performed on this calendar day: d/w Prosthetic Aides Teacher about her care and symptom burden/depression * Rosana Gupta, RN - 02/04/2025 2:20 PM EDT Fax sent to Medical Records at [facility] Request for records from [...] HECTOR [address] [place] [address] Samm Ledesma APRN [address] [place] [address] 03/10/2025 12:30 PM EDT Appointment [place] [address] Tacho Echavarria MD [address] [place] [address] 03/10/2025 1:00 PM EDT Appointment [facility] Medical Oncology [place], [place] [phone] Tacho Echavarria MD [address] [place] [address] 04/29/2025 9:15 AM EDT Appointment [place] [address] Batool Celis MD [address] [place] [address] [place] [address] 05/19/2025 2:15 PM EST Office Visit [address] [place] [address] Sin Tran MD [address] [place] [phone] 08/12/2025 10:40 AM EST Appointment [facility] Women's Wellness [place] [facility] [place] [address] Matt Ulrich MD [address] [place] [address] [place] [address] documented as of this encounter Goals Goal Patient Goal Type Associated Problems Recent Progress Patient-Stated? Author Blood Pressure < 140/90 Blood Pressure 121/77(02/04 2:04 PM EDT) No Chetna Cedeno MD Breast [facility] Breast Health On track(2024 11:27 AM EDT) No Jasmin Porter, RAUL Note: Patient acknowledges understanding of new diagnosis, plan of care, available resources and how to contact Nurse Navigator with any future questions or concerns. Breast [facility] Breast Health Not on track(2024 11:27 AM EDT) No Jasmin Porter, RAUL Note: Patient will be compliant with monthly SBE and is aware of who to contact for any unusual or concerning findings. Breast [facility] Breast Health On track(2024 11:27 AM EDT) [...] documented as of this encounter Care Teams Engineering Coordinator Relationship Specialty [place] [address] [place] [id number] PCP - General 06/21/10 Arlyn Schmidt MD [address] [place] [address] Consulting Physician Internal Medicine-Endocrinology, Diabetes & Metabolism 11/28/20 Tacho Echavarria MD 1 [place] [address] Internal Medicine-Medical Oncology 11/12/23 Matt Ulrich MD 1 [place], [place] [id number] Surgery-Surgical Oncology 12/04/23 Eze Brock Pastoral Care 12/13/23 Annette Walker, PASSPORT SUPPORT MANAGER Bullet Assembly Press Operator 05/13/24 Batool Celis MD 1 [facility] [place] [address] Radiation Oncologist Radiology-Radiation Oncology 06/08/24 documented as of this encounter
--- OUTSIDE RECORDS SUMMARY | 2025-02-10 10:30 | XMS_ITS | Encounter Summary ---
Author Organization [place] [address] Care Team Providers Care Robotics Engineer Name Role Phone Chetna Cedeno MD Primary Care Provider [phone] Arlyn Schmidt MD Unavailable [phone] Tacho Echavarria MD Unavailable [phone] Matt Ulrich MD Unavailable [phone] Eze Brock Unavailable Annette Walker Unavailable [phone] Batool Celis MD Unavailable [phone] Reason for Visit * Reason Comments Follow-up Pump Refill Encounter Details Date Type Department Care Team (Late st Contact Info) Description 02/10/2025 10:30 AM EDT Office Visit [facility] Spine [address] [address] Sin Tran MD [address] [place] [address] Chronic pain syndrome (Primary Dx); Post [...] from your doctor or pharmacy? Never 11/07/2023 [facility] Utilities Answer Date Recorded In [...] often do you attend chur ch or mu-ism services? 1 to 4 times per year [...] Total Score 5 07/07/2024 [facility] - Occupational Stress Questionnaire Answer [...] in a halfway (including now)? No 11/07/2023 [facility] [...] Assessment Author No 12/06/2022 2:08 PM EDT Macraena Marion CCMA * Because of a physical, [...] No edema, warmth, erythema, or fluctuance. The Contests4Causes analyzer was used to interrogate the SynchroMed [...] well Sin Tran MD Interventional Pain Management [facility] documented in this encounter Plan of Treatment Upcoming Encounters Date Type Department Care Team (Late st Contact Info) Description 03/09/2025 12:45 PM EDT Procedure visit [facility] [address] [facility] [address] [place] [address] Samm Ledesma APRN [address] [facility] [address] [place] [address] 03/10/2025 12:30 PM EDT Appointment [facility] [place] [address] Tacho Echavarria MD [address] [place] [address] 03/10/2025 1:00 PM EDT Appointment [facility] [place], [place] 570[address] Tacho Echavarria MD [address] [place] [address] 04/29/2025 9:15 AM EDT Appointment [facility] [place] [address] Batool Celis MD [address] [place] [address] [place] [address] 05/19/2025 2:15 PM EST [facility] 4900 [facility] [address] [place] [address] Sin Tran MD 4900 [facility] [place] [address] 08/12/2025 10:40 AM EST Appointment [facility] Women's Wellness [place] [address] Matt Ulrich MD 20 [facility] 254 [place] [address] documented as of this encounter Goals Goal Patient Goal Type Associated Problems Recent Progress Patient-Stated? Author Blood Pressure < 140/90 Blood Pressure 121/77(02/04 2:04 PM EDT) No Chetna Cedeno MD Breast [facility] Breast Health On track(2024 11:27 AM [...] documented as of this encounter Care Teams Robotics Engineer Relationship Specialty [place] [address] [place] [address] PCP - General 06/21/10 Arlyn Schmidt MD [address] [place] [address] Consulting Physician Internal Medicine-Endocrinology, Diabetes & Metabolism 11/28/20 Tacho Echavarria MD 1 [place] [address] Internal Medicine-Medical Oncology 11/12/23 Matt Ulrich MD 1 [place] [address] Surgery-Surgical Oncology 12/04/23 Eze Brock Pastoral Care 12/13/23 Annette Walker, ARACELI Manager Biostatistics 05/13/24 Batool Celis MD 1 [facility] [place] [address] Radiation Oncologist Radiology-Radiation Oncology 06/08/24 documented as of this encounter
[2025-03-01] VITALS (15 sets, daily range): BP systolic 115–140; BP diastolic 78–93; PULSE 65–97; RESP 12–25; TEMP 36.6–36.9; O2SAT 95–100; BMI 30.8
--- NOTE | 2025-03-01 15:33 | ECG_ITS ---
APPROVED REPORT Exam: Resting ECG HR:72 bpm ECG Measurements Heart Rate 72 AXES AL 147 P -20 QRSd 97 QRS 15 QT 372 T 17 QTc 396 Conclusion SINUS RHYTHM WITH OCCASIONAL VENTRICULAR PREMATURE COMPLEXES INFERIOR MYOCARDIAL INFARCTION , PROBABLY OLD [40+ ms Q WAVE AND/OR ST/T ABNORMALITY IN II/aVF] ABNORMAL ECG UNCONFIRMED REPORT Electronically signed by : MOISES SANCHEZ, 03/01/2025 23:16:12
--- NOTE | 2025-03-01 15:34 | PC.NURSE ---
dr carlson at bedside
--- NOTE | 2025-03-01 15:43 | CT_ITS ---
PROCEDURE INFORMATION: Exam: CTA Chest With Contrast Exam date and time: 03/01/2025 4:50 PM Age: 59 years old Clinical indication: Other: Chest pain, cancer, off ac TECHNIQUE: Imaging protocol: Computed tomographic angiography of the chest with contrast. Exam focused on the arteries. 3D rendering (Not supervised by radiologist): MIP and/or 3D reconstructed images were created by the technologist. Radiation optimization: All CT scans at this facility use at least one of these dose optimization techniques: automated exposure control; mA and/or kV adjustment per patient size (includes targeted exams where dose is matched to clinical indication); or iterative reconstruction. Contrast material: ISO 370; Contrast volume: 70 ml; Contrast route: INTRAVENOUS (IV); COMPARISON: CT ANGIO CHEST PE PROTOCOL 01/31/2025 2:14 AM FINDINGS: Pulmonary arteries: Previously noted lingular segmental and subsegmental pulmonary emboli have resolved. Aorta: Unremarkable. No aortic aneurysm. No aortic dissection. Lungs: Unremarkable. No consolidation. No masses. Pleural spaces: Unremarkable. No pneumothorax. No pleural effusion. Heart: Unremarkable. No cardiomegaly. No pericardial effusion. Coronary arteries: No coronary calcium. Lymph nodes: Several mildly prominent mediastinal lymph nodes measuring up to 16 mm are unchanged from the prior study these are predominantly within the region of the AP window and upper mediastinum. Gallbladder and biliary ducts: Cholecystectomy. Stomach: Prior gastric bypass surgery. Bones/joints: Unremarkable. No acute fracture. Soft tissues: Prior right mastectomy and chronic appearing radiation changes to the anterior portion of the right upper lobe unchanged from prior study. A few scattered small subcutaneous nodules are again noted on the right not significantly changed from prior. IMPRESSION: 1. No evidence of acute pulmonary emboli, resolution of the previously noted recent pulmonary emboli. 2. Stable mediastinal lymphadenopathy measuring up to 1.6 cm. 3. Right mastectomy and post radiation changes to the right lung. Stable subcutaneous nodules on the left of uncertain etiology, possibly malignant.
--- NOTE | 2025-03-01 15:43 | CT_ITS ---
PROCEDURE INFORMATION: Exam: CT Abdomen And Pelvis With Contrast Exam date and time: 03/01/2025 4:50 PM Age: 59 years old Clinical indication: Abdominal pain TECHNIQUE: Imaging protocol: Computed tomography of the abdomen and pelvis with contrast. 3D rendering (Not supervised by radiologist): MIP and/or 3D reconstructed images were created by the technologist. Radiation optimization: All CT scans at this facility use at least one of these dose optimization techniques: automated exposure control; mA and/or kV adjustment per patient size (includes targeted exams where dose is matched to clinical indication); or iterative reconstruction. Contrast material: ISOVUE; Contrast volume: 70 ml; Contrast route: IV; COMPARISON: CT ABDOMEN PELVIS W CON 01/31/2025 2:14 AM FINDINGS: Tubes, catheters and devices: There are 2 implantable devices in the lower back unchanged from prior. Liver: Normal. No mass. Gallbladder and biliary ducts: Cholecystectomy. Stable mild biliary prominence. Pancreas: Normal. No ductal dilation. Spleen: Normal. No splenomegaly. Adrenal glands: Normal. No mass. Kidneys and ureters: Normal. No hydronephrosis. Stomach and bowel: Gastric bypass surgery. No ileus or obstruction. Appendix: No evidence of appendicitis. Intraperitoneal space: Unremarkable. No free air. No significant fluid collection. Vasculature: Unremarkable. No abdominal aortic aneurysm. Lymph nodes: Unremarkable. No enlarged lymph nodes. Urinary bladder: Unremarkable as visualized. Reproductive: Unremarkable as visualized. Bones/joints: Degenerative disc disease with multilevel vacuum disc phenomena and disc space narrowing this is most prominent at L4-L5 and L5-S1. Soft tissues: Unremarkable. IMPRESSION: 1. No acute process identified to explain the patient's symptoms. 2. Cholecystectomy. 3. Gastric bypass surgery.
--- OUTSIDE RECORDS SUMMARY | 2025-03-01 15:49 | XMS_ITS | Encounter Summary ---
Author Organization [place] [address] Care Team Providers Care Investigations Director Name Role Phone Chetna Cedeno MD Primary Care Provider [phone] Arlyn Schmidt MD Unavailable [phone] Tacho Echavarria MD Unavailable [phone] Matt Ulrich MD Unavailable [phone] Eze Brock Unavailable Annette Walker Unavailable [phone] Batool Celis MD Unavailable [phone] Encounter Details Date Type Department Care Team (Late st Contact Info) Description 01/15/2025 Plan of Care Documentation [facility] Physical Therapy [address] [place] [address] Social History Tobacco Use Types [...] doctor or pharmacy? Never 11/07/2023 [facility] Utilities Answer Date Recorded In the past [...] a senior living (including now)? No [facility]07[facility] IP Transportation Answer D ate Recorded In [...] [address] [place] [address] Samm Ledesma, SHEAR TENDER [address] [place], [place] [id number] 03/10/2025 12:30 PM EDT Appointment [facility] [place], [place] [id number] Tacho Echavarria MD [address] [place] [address] 03/10/2025 1:00 PM EDT [facility]ointment [facility] [place] [address] Tacho Echavarria MD [address] [place] [address] 04/29/2025 9:15 AM EDT Appointment [facility] RAD ONC [place], [place] [id number] Batool Celis MD [address] [place] [address] [place] [address] 05/19/2025 2:15 PM EST Office Visit [facility] [address] [facility] [address] [place] [address] Sin Tran MD [address] [place] [address] 08/12/2025 10:40 AM EST Appointment [facility] Women's Wellness [place] One [facility] [place] [address] Matt Ulrich MD [address] [place] [address] [address] [place] [address] documented as of this encounter Goals Goal [...] documented as of this encounter Care Teams Investigations Director Relationship Specialty [place] [address] [place] [id number] PCP - General 06/21/10 Arlyn Schmidt MD [address] [place] [address] Consulting Physician Internal Medicine-Endocrinology, Diabetes & Metabolism 11/28/20 Tacho Echavarria MD [address] [place] [address] Internal Medicine-Medical Oncology 11/12/23 Matt Ulrich MD 1 [place] [address] Surgery-Surgical Oncology 12/04/23 Eze Brock Pastoral Care 12/13/23 Annette Walker, [facility] Panel Installer 05/13/24 Batool Celis MD 1 [place] [address] Radiation Oncologist Radiology-Radiation Oncology 06/08/24 documented as of this encounter
--- OUTSIDE RECORDS SUMMARY | 2025-03-01 15:49 | XMS_ITS | Encounter Summary ---
Author Organization [place] [address] Care Team Providers Care Substation Operator Transforming Name Role Phone Chetna Cedeno MD Primary Care Provider [phone] Arlyn Schmidt MD Unavailable [phone] Tacho Echavarria MD Unavailable [phone] Matt Ulrich MD Unavailable [phone] Eze Brock Unavailable Annette Walker Unavailable [phone] Batool Celis MD Unavailable [phone] Encounter Details Date Type Department Care Team (Late st Contact Info) Description 01/15/2025 Plan of Care Documentation [facility] Physical Therapy [address] [place] [address] Social History Tobacco Use Types [...] often do you attend chur ch or jain services? 1 to 4 times per year [...] in a snf (including now)? No 11/07/2023 [facility] IP Transportation Answer D ate [...] [address] [place] [address] Samm Ledesma, POT TENDER [address] [place], [place] [id number] 03/10/2025 12:30 PM EDT Appointment [facility] [place], [place] [id number] Tacho Echavarria MD [address] [place] [address] 03/10/2025 1:00 PM EDT Appointment [facility] [place] [address] Tacho Echavarria MD [address] [place] [address] 04/29/2025 9:15 AM EDT Appointment [facility]C [place], [place] [id number] Batool Celis MD [address] [place] [address] [place] [address] 05/19/2025 2:15 PM EST Office Visit [facility] [address] [facility] [address] [place] [address] Sin Tran MD [address] [place] [address] 08/12/2025 10:40 AM EST Appointment [facility] Women's Wellness [place] [address] [facility] [place] [address] Matt Ulrich MD [address] [place] [address] [address] [place] [address] documented as of this encounter Goals Goal [...] documented as of this encounter Care Teams Substation Operator Transforming Relationship Specialty [place] [address] [place] [phone] PCP - General 06/21/10 Arlyn Schmidt MD [address] [place] [address] Consulting Physician Internal Medicine-Endocrinology, Diabetes & Metabolism 11/28/20 Tacho Echavarria MD 1 [place] [address] Internal Medicine-Medical Oncology 11/12/23 Matt Ulrich MD 1 [place] [address] Surgery-Surgical Oncology 12/04/23 Eze Brock Pastoral Care 12/13/23 Annette Walker, [facility] Cold Work Operator 05/13/24 Batool Celis MD [address] [place] [address] Radiation Oncologist Radiology-Radiation Oncology 06/08/24 documented as of this encounter
--- OUTSIDE RECORDS SUMMARY | 2025-03-01 15:49 | XMS_ITS | Encounter Summary ---
Author Organization [place] [address] Care Team Providers Care Optical Instrument Assembler Name Role Phone Chetna Cedeno MD Primary Care Provider [phone] Arlyn Schmidt MD Unavailable [phone] Tacho Echavarria MD Unavailable [phone] Matt Ulrich MD Unavailable [phone] Eze Brock Unavailable Annette Walker Unavailable [phone] Batool Celis MD Unavailable [phone] Reason for Visit * Reason Comments Pharmacy Migraine Medication Management Qulipta Encounter Details Date Type Department Care Team (Latest Contact Info) Description 12/31/2024 Specialty Pharmacy [facility] [address] [place] [address] Annamarie Mark CPhT Pharmacy Migraine [...] th e electric, gas, oil, or water [employer] threatened to shut off services in your [...] Date Recorded PHQ-2 Total Score 5 07/07/2024 [facility] [place] of Occupat ional Health - Occupational Stress [...] in a mcfp (including now)? No 11/07/2023 [facility] IP Transportation Answer [...] Mark CPhT - 12/31/2024 11:07 AM EDT [facility] Qulipta RTS til 01/02 * Charlotte Martino CPhT - 12/31/2024 11:07 AM EDT Specialty Pharmacy Refill Coordination Note Contacted [facility] today regarding refills of Qulipta. Copay amount: $0 Sent [employer] message. Patient informed of copay. * Glenna Vo CPhT - 12/31/2024 11:07 AM EDT Specialty Pharmacy Refill Coordination Note Contacted [facility] today regarding refills of Qulipta. Medication to be delivered by [facility] on 01/07. Copay amount: $0 Sent [employer] message. Patient informed of copay. * Glenna Vo CPhT - 12/31/2024 11:07 AM EDT [facility] Medication has been released from [facility] but did not realize patient only [...] Monson CPhT - 12/31/2024 11:07 AM EDT [facility] Patient will roll picker medication 01/06. documented in this encounter Plan of Treatment Upcoming Encounters Date Type Department Care Team (Late st Contact Info) Description 03/09/2025 12:45 PM EDT Procedure visit [facility] [address] [facility] [address] [place] [address] Samm Ledesma APRN [address] [place] [address] 03/10/2025 12:30 PM EDT Appointment [place] [address] Tacho Echavarria MD [address] [place] [address] 03/10/2025 1:00 PM EDT Appointment [facility] On[facility] [place], [place] 2018517 Tacho Echavarria MD [address] [place] [address] 04/29/2025 9:15 AM EDT Appointment [facility] [place] [address] Batool Celis MD [address] [place] [address] [place] [address] 05/19/2025 2:15 PM EST Office Visit [facility] [address] [address] [address] [place] [address] Sin Tran MD [address] [place] [phone] 08/12/2025 10:40 AM EST Appointment [facility] Women's Wellness [place] [address] [facility] [place] [address] Matt Ulrich MD [address] [place] [address] [place] [address] documented as of this encounter Goals Goal Patient Goal Type Associated Problems Recent Progress Patient-Stated? Author Blood Pressure < 140/90 Blood Pressure 121/77(02/04 2:04 PM EDT) No Chetna Cedeno MD Breast Health Breast Health On track(2024 11:27 AM EDT) No Jasmin Potrer, RN Note: Patient acknowledges understanding of new [...] documented as of this encounter Care Teams Optical Instrument Assembler Relationship Specialty [place] [address] [address] [place] [phone] PCP - General 06/21/10 Arlyn Schmidt MD [address] [place] [address] Consulting Physician Internal Medicine-Endocrinology, Diabetes & Metabolism 11/28/20 Tacho Echavarria MD [address] [phone] Internal Medicine-Medical Oncology 11/12/23 Matt Ulrich MD [address] [phone] Surgery-Surgical Oncology 12/04/23 Eze Brock Pastoral Care 12/13/23 Annette Walker, [facility] Pulp Machine Operator 05/13/24 Batool Celis MD 1 [facility] [place] [address] Radiation Oncologist Radiology-Radiation Oncology 06/08/24 documented as of this encounter
--- OUTSIDE RECORDS SUMMARY | 2025-03-01 15:49 | XMS_ITS | Encounter Summary ---
Author Organization [place] [address] Care Team Providers Care Robotic Maintenance Technician Name Role Phone Chetna Cedeno MD Primary Care Provider [phone] Arlyn Schmidt MD Unavailable [phone] Tacho Echavarria MD Unavailable [phone] Matt Ulrich MD Unavailable [phone] Eze Brock Unavailable nAnette Walker Unavailable [phone] Batool Celis MD Unavailable [phone] Encounter Details Date Type Department Care Team (Late st Contact Info) Description 01/11/2025 Orders Only [facility] On[facility] [place], [place] [phone] Tacho Echavarria MD [address] [place] [address] [id number] Social History Tobacco Use Types Packs/Day Years [...] doctor or pharmacy? Never 11/07/2023 [facility] Utilities Answer Date Recorded In [...] Recorded PHQ-2 Total Score 5 07/07/2024 [facility] [place] of Occupat ional Health - Occupational Stress [...] any time in the past 12 [facility], were you homeless or living in a residential (including now)? No 11/07/2023 [facility] IP [...] [address] [facility] [address] [place] [address] Samm Ledesma, OUTCOMES SPECIALIST [address] [facility] [address] [place] [address] 03/10/2025 12:30 PM EDT Appointment [place] [address] Tacho Echavarria MD [address] [place] [address] 03/10/2025 1:00 PM EDT Appointment [facility] [place] [address] Tacho Echavarria MD [address] [place] [address] 04/29/2025 9:15 AM EDT Appointment [facility] [place] [address] Batool Celis MD [address] [place] [address] [place] [address] 05/19/2025 2:15 PM EST Office Visit [facility] [address] [address] [address] [place] [address] [facility] [place] [address] 08/12/2025 10:40 AM EST Appointment [facility] Women's Wellness [place] One [facility] [place] [address] Matt Ulrich MD [address] [facility] [place]USA [place]ed [place], [place] [phone] documented as of this encounter Goals Goal [...] documented as of this encounter Care Teams Robotic Maintenance Technician Relationship Specialty [place] [address] [place] [address] PCP - General 06/21/10 Arlyn Schmidt MD [address] [place] [address] Consulting Physician Internal Medicine-Endocrinology, Diabetes & Metabolism 11/28/20 Tacho Echavarria MD 1 [place] [address] Internal Medicine-Medical Oncology 11/12/23 Matt Ulrich MD 1 [place] [address] Surgery-Surgical Oncology 12/04/23 Eze Brock Pastoral Care 12/13/23 Annette Walker, ARACELI Oracle Bpm Developer 05/13/24 Batool Celis MD 1 [facility] [place] [address] Radiation Oncologist Radiology-Radiation Oncology 06/08/24 documented as of this encounter
--- OUTSIDE RECORDS SUMMARY | 2025-03-01 15:49 | XMS_ITS | Encounter Summary ---
Author Organization [place] [address] Care Team Providers Care Diet Consultant Name Role Phone Chetna Cedeno MD Primary Care Provider [phone] Arlyn Schmidt MD Unavailable [phone] Tacho Echavarria MD Unavailable [phone] Matt Ulrich MD Unavailable [phone] Eze Brock Unavailable Cheryl Nair RN Unavailable [phone] Annette Walker AD[employer]ANCE [employer]OUT Unavailable [phone] Batool Celis MD Unavailable [phone] Encounter Details Date Type Department Care Team (Late st Contact Info) Description 09/11/2024 Lab Requisition [facility] [place] [address] Beata Kebede MD [address] [place] [address] Social History Tobacco Use Types Packs/Day Years [...] in a assisted (including now)? No 11/07/2023 [facility] IP Transportation Answer D ate Recorded [...] [facility] [address] [place] [address] Samm Ledesma APRN [address] [facility] [address] [place] [address] 03/10/2025 12:30 PM EDT Appointment [place] [address] Tacho Echavarria MD [address] [place] [address] 03/10/2025 1:00 PM EDT Appointment [facility] On[facility] [place], [place] 0928[address] Tacho Echavarria MD [address] [place] [address] 04/29/2025 9:15 AM EDT Appointment [facility] [place] [address] Batool Celis MD [address] [place] [address] [place] [address] 05/19/2025 2:15 PM EST Office Visit [facility] [address] [address] [address] [place] [address] Sin Tran MD [address] [place] [phone] 08/12/2025 10:40 AM EST Appointment [facility] Women's Wellness [place] [address] [facility] [address] [place] [address] Matt Ulrich MD [address] [place] [address] [place] [address] documented as of this encounter Goals Goal Patient Goal Type Associated Problems Recent Progress Patient-Stated? Author Blood Pressure < 140/90 Blood Pressure 121/77(02/04 2:04 PM EDT) No Chetna Cedeno MD Breast [facility] Health On track(2024 11:27 AM EDT) No Jasmin Porter, RAUL Note: Patient acknowledges understanding of new diagnosis, plan of care, available resources and how to contact Nurse Navigator with any future questions or concerns. Breast [facility] Breast [facility] Not on track(2024 11:27 AM EDT) No [...] EST) CASE REPORT Surgical Pathology Report Case: [id number] Authorizing Provider: Beata Kebede MD Collected: 09/11/20241312 Ordering Location: [facility] Received: 09/11/20241312 Pathologist: Diane Ellis MD Specimen: Breast, Request for cases [id number], [id number] slides to [facility]. 09/15/2024 12:14 PM EDT [facility] FINAL DIAGNOSIS Results will be scanned in this case as an addendum. 09/15/2024 12:14 PM EDT [facility] at 1338 EST EMBEDDED IMAGES 09/15/2024 12:14 PM EDT [facility] ADDENDUM Refer to Scanned Surgical Pathology Report for [id number] & [id number]. 09/15/2024 12:14 PM EDT [facility] Addendum electronically signed by Diane Ellis MD on 09/15/2024 at 1214 EDT Tissue BREAST STRUCTURE / Unknown 09/11/2024 1:13 PM EST 09/11/2024 1:13 PM EST us Beata Kebede MD PATHOLOGY ORDERABLES Edited R esult - Final [facility] [address] [phone] documented in this encounter Visit Diagnoses Not on filedocumented in this encounter Additional Health Concerns Infection Onset Date Last Indicated Resolved Time COVID-19 09/04/2024 09/04/2024 09/24/2024 10:1 2 PM EDT Assessment Noted Time PHQ-9 Depression Total Score: 17 07/07/ 024 8:39 AM EST PHQ-2 Depression Total Score: 5 07/07/20 24 8:39 AM EST documented as of this encounter Care Teams Diet Consultant Relationship Specialty [place] [address] [place] [address] PCP - General 06/21/10 Arlyn Schmidt MD [address] [place] [address] Consulting Physician Internal Medicine-Endocrinology , Diabetes & Metabolism 11/28/20 Tacho Echavarria MD [address] [place] [address] [phone] Internal Medicine-Medical Oncology 11/12/23 Matt Ulrich MD 1 [place] [address] Surgery-Surgical Oncology 12/04/23 Eze Brock Pastoral Care 12/13/23 Cheryl Nair, RN Oncology Nurse Navigator 03/25/2412/13 Annette Walker, ARACELI Milieu Technician 05/13/24 Batool Celis MD 1 [facility] [address] Radiation Oncologist Radiology-Radiation Oncology 06/08/24 documented as of this encounter
--- OUTSIDE RECORDS SUMMARY | 2025-03-01 15:49 | XMS_ITS | Encounter Summary ---
Author Organization [place] [address] Care Team Providers Care Fiberglass Grinder Name Role Phone Chetna Cedeno MD Primary Care Provider [phone] Arlyn Schmidt MD Unavailable [phone] Tacho Echavarria MD Unavailable [phone] Matt Ulrich MD Unavailable [phone] Eze Brock Unavailable Annette Walker Unavailable [phone] Batool Celis MD Unavailable [phone] Reason for Visit * Reason Comments Pharmacy Migraine Medication Management Ubrelvy Encounter Details Date Type Department Care Team (Latest Contact Info) Description 01/15/2025 Specialty Pharmacy [facility] [address] [place] [address] Annamarie Mark CPhT Pharmacy Migraine [...] th e electric, gas, oil, or water [employer] threatened to shut off services in your [...] Date Recorded PHQ-2 Total Score 5 07/07/2024 [facility] [place] of Occupat ional Health - Occupational Stress [...] a senior care (including now)? No 11/07/2023 [facility] IP Transportation Answer D ate Recorded [...] Cole requested a refill of Ubrelvy via [employer]. [employer] message was sent in response with appropriate questionnaire. Will f/u in 2 business days. documented in this encounter Plan of Treatment Upcoming Encounters Date Type Department Care Team (Late st Contact Info) Description 03/09/2025 12:45 PM EDT Procedure visit [facility] [address] [facility] [address] [place] [address] Samm Ledesma APRN [address] [facility] [facility] [address] [place] [address] 03/10/2025 12:30 PM EDT Appointment [place] [address] Tacho Echavarria MD [address] [place] [address] 03/10/2025 1:00 PM EDT Appointment [facility] On[facility] [place], [place] [phone] Tacho Echavarria MD [address] [place] [address] [phone] 04/29/2025 9:15 AM EDT Appointment [place] [address] Batool Celis MD [address] [place] [address] [place] [address] 05/19/2025 2:15 PM EST Office Visit [facility] [address] [facility] [address] [place] [address] Sin Tran MD [address] [facility] [place] [address] 08/12/2025 10:40 AM EST Appointment [facility] Women's Wellness [place] One [facility] [place] [address] Matt Ulrich MD 20 [facility] [address] [place] [address] documented as of this encounter [...] documented as of this encounter Care Teams Fiberglass Grinder Relationship Specialty [place] [address] [place] [address] PCP - General 06/21/10 Arlyn Schmidt MD [address] [place], [place] [address] Consulting Physician Internal Medicine-Endocrinology, Diabetes & Metabolism 11/28/20 Tacho Echavarria MD 1 [place], [place] [phone] Internal Medicine-Medical Oncology 11/12/23 Matt Ulrich MD 1 [place], [place] [phone] Surgery-Surgical Oncology 12/04/23 Eze Brock Pastoral Care 12/13/23 Annette Walker, CLIENT SERVICES ADMINISTRATOR Hydraulic Assembler 05/13/24 Batool Celis MD 1 [facility] CANCER [place], [place] [phone] Radiation Oncologist Radiology-Radiation Oncology 06/08/24 documented as of this encounter
--- OUTSIDE RECORDS SUMMARY | 2025-03-01 15:49 | XMS_ITS | Encounter Summary ---
Author Organization [place] [address] Care Team Providers Care Silverware Washer Name Role Phone Chetna Cedeno MD Primary Care Provider [phone] Arlyn Schmidt MD Unavailable [phone] Tacho Echavarria MD Unavailable [phone] Matt Ulrich MD Unavailable [phone] Eze Brock Unavailable Annette Walker Unavailable [phone] Batool Celis MD Unavailable [phone] Reason for Visit * Reason Onset Date Comments Botox Injection 01/01/2025 ~03/02/2025 Encounter Details Date Type Department Care Team (Late st Contact Info) Description 01/01/2025 Patient Outreach [facility] [address] [facility] [place] [address] Samm Ledesma, EARTH BORING MACHINE OPERATOR [address] [facility] [address] [place] [address] Botox Injection (~03/02/2025 ) Social History Tobacco [...] 07/07/2024 [facility] of Occupat ional [facility] - Occupational Stress Questionnaire Answer [...] in a penitentiary (including now)? No 11/07/2023 [facility] [...] 12/06/2022 2:08 PM EDT Macarena Marion CCMSharonda * Because of a physical, mental or emotional condition, does this person have difficulty doing errands alone such as visiting a doctor's office or shopping? Answer Date of Assessment Author No 12/06/2022 2:08 PM EDT MarvMacarena hernández CCMSharonda documented as of this encounter Mental Status * Because of a physical, mental or emotional condition, does this person have serious difficulty concentrating, remembering or making decisions? Answer Entry Date Author No 12/06/2022 2:08 PM EDT AaliyahdanyaMacarena hernández CCMSharonda documented in this encounter Miscellaneous Notes * Telephone Encounter - Maria Elena Harvey - 01/12/2025 1:09 PM EDT Pt suzy'ed Botox for 03/02/25 * Telephone Encounter - Brittany Narvaez MA - 01/01/2025 11:30 AM EDT ~03/02/2025 ANNIE APPROVED: [id number] AUTH #: ASO ASBM Preferred [id number] DATES OF APPROVAL: 08/12/2024-08/11/2025 UNITS APPROVED: 620 units/ 4 visits documented in this encounter Plan of Treatment Upcoming Encounters Date Type Department Care Team (Late st Contact Info) Description 03/09/2025 12:45 PM EDT Procedure visit [facility] [address] [place] [address] [place] [address] Samm Ledesma, LEYLA [address] [facility] [address] [place] [address] 03/10/2025 12:30 PM EDT Appointment [facility] [place], [place] [phone] Tacho Echavarria MD 1 [place], [place] [phone] 03/10/2025 1:00 PM EDT Appointment [facility] [place] [address] Tacho Echavarria MD [address] [place] [address] 04/29/2025 9:15 AM EDT Appointment [facility] [place] [address] Batool Celis MD [address] [place] [address] [place] [address] 05/19/2025 2:15 PM EST Office Visit [address] [address] Sin Tran MD [address] [place] [address] 08/12/2025 10:40 AM EST Appointment [facility] Women's Wellness [facility] [place] [address] Matt Ulrich MD [address] [place] [address] documented as of this encounter Goals Goal [...] as of this encounter Care Teams Silverware Washer Relationship Specialty [place] [address] [place] [address] PCP - General 06/21/10 Arlyn Schmidt MD [address] [place], [place] [address] Consulting Physician Internal Medicine-Endocrinology, Diabetes & Metabolism 11/28/20 Tacho Echavarria MD 1 [place], [place] [phone] Internal Medicine-Medical Oncology 11/12/23 Matt Ulrich MD 1 [place] [address] Surgery-Surgical Oncology 12/04/23 Eze Brock Pastoral Care 12/13/23 Annette Walker MSW Hospital Chaplain 05/13/24 Batool Celis MD 1 [facility]ER [place], [place] [address] Radiation Oncologist Radiology-Radiation Oncology 06/08/24 documented as of this encounter
--- OUTSIDE RECORDS SUMMARY | 2025-03-01 15:49 | XMS_ITS | Encounter Summary ---
Author Organization [place] [address] Care Team Providers Care Carbon Accountant Name Role Phone Chetna Cedeno MD Primary Care Provider [phone] Arlyn Schmidt MD Unavailable [phone] Tacho Echavarria MD Unavailable [phone] Matt Ulrich MD Unavailable [phone] Eze Brock Unavailable Annette Walker Unavailable [phone] Batool Celis MD Unavailable [phone] Reason for Visit * Reason Comments Medication Refill Encounter Details Date Type Department Care Team (Late st Contact Info) Description 01/15/2025 Refill [facility] [place], [place] [phone] Tacho Echavarria MD [address] [place] [address] [phone] Medication Refill Social History Tobacco Use Types [...] a long term (including now)? No 11/07/2023 [facility] IP Transportation [...] Assessment Author No 12/06/2022 2:08 PM Macarena Hneson CCMA * Does this person have difficulty [...] [facility] [address] [place] [address] Samm Ledesma APRN [address] [facility] [address] [place] [address] 03/10/2025 12:30 PM EDT Appointment [facility] [place] [address] Tacho Echavarria MD [address] [place] [address] 03/10/2025 1:00 PM EDT Appointment [facility] [place] [address] Tacho Echavarria MD [address] [place] [address] 04/29/2025 9:15 AM EDT Appointment [facility] [place] [address] Batool Celis MD [address] [place] [address] [place] [address] 05/19/2025 2:15 PM EST Office Visit [facility] [address] [facility] [address] [place] [address] Sin Tran MD [facility] [place] [address] 08/12/2025 10:40 AM EST Appointment [facility] Women's Wellness [place] [address] [facility] [place] [address] Matt Ulrich MD [address] [place] [address] [address] [place] [address] documented as of this encounter Goals Goal Patient Goal Type Associated Problems Recent Progress Patient-Stated? Author Blood Pressure < 140/90 Blood Pressure 121/77(02/04 2:04 PM EDT) No Chetna Cedeno MD Breast [facility] Breast Health On track(2024 11:27 AM EDT) No Jasmin Porter, RAUL Note: Patient acknowledges understanding of new diagnosis, plan of care, available resources and how to contact Nurse Navigator with any future questions or concerns. Breast [facility] Breast Health Not on track(2024 [...] documented as of this encounter Care Teams Carbon Accountant Relationship Specialty Start [place] [address] [place] [address] PCP - General 06/21/10 Arlyn Schmidt MD [address] [place], [place] [phone] Consulting Physician Internal Medicine-Endocrinology, Diabetes & Metabolism 11/28/20 Tacho Echavarria MD 1 [place] [address] Internal Medicine-Medical Oncology 11/12/23 Matt Ulrich MD 1 [place] [address] Surgery-Surgical Oncology 12/04/23 Eze Brock Pastoral Care 12/13/23 Annette Walker, ARACELI Research Administrator 05/13/24 Batool Celis MD 1 [facility] [place] [address] Radiation Oncologist Radiology-Radiation Oncology 06/08/24 documented as of this encounter
--- OUTSIDE RECORDS SUMMARY | 2025-03-01 15:49 | XMS_ITS | Encounter Summary ---
Author Organization [place] [address] Care Team Providers Care Utility Porter Name Role Phone Chetna Cedeno MD Primary Care Provider [phone] Arlyn Schmidt MD Unavailable [phone] Tacho Echavarria MD Unavailable [phone] Matt Ulrich MD Unavailable [phone] Eze Brock Unavailable Annette Walker Unavailable [phone] Batool Celis MD Unavailable [phone] Reason for Visit * Reason Comments Medication Refill Encounter Details Date Type Department Care Team (Late st Contact Info) Description 01/14/2025 Refill [facility] On[facility] [place], [place] [id number] Tacho Echavarria MD [address] [place] [address] [id number] Medication Refill Social History Tobacco Use Types [...] Date Recorded PHQ-2 Total Score 5 07/07/2024 [facility] of Occupat ional Health - Occupational Stress [...] a skilled nursing (including now)? No 11/07/2023 [facility] IP Transportation Answer D ate [...] [facility] [address] [place] [address] Samm Ledesma, TRAFFIC SIGNAL TECHNICIAN [address] [place] [address] 03/10/2025 12:30 PM EDT Appointment [facility] [place] [address] Tacho Echavarria MD [address] [place] [address] 03/10/2025 1:00 PM EDT Appointment [facility] [place] [address] Tacho Echavarria MD [address] [place] [address] 04/29/2025 9:15 AM EDT Appointment [facility] RAD ONC [place], [place] [id number] Batool Celis MD [address] [place] [address] [place] [address] 05/19/2025 2:15 PM EST Office Visit [address] [address] Sin Tran MD [address] [place] [address] 08/12/2025 10:40 AM EST Appointment [facility] [place] [address] Matt Ulrich MD [address] [place] [address] documented as of this encounter Goals Goal [...] documented as of this encounter Care Teams Utility Porter Relationship Specialty [place] [address] [place] [address] PCP - General 06/21/10 Arlyn Schmidt MD [address] [place] [address] Consulting Physician Internal Medicine-Endocrinology, Diabetes & Metabolism 11/28/20 Tacho Echavarria MD 1 [place] [address] Internal Medicine-Medical Oncology 11/12/23 Matt Ulrich MD 1 [place] [address] Surgery-Surgical Oncology 12/04/23 Eze Brock Pastoral Care 12/13/23 Annette Walker MSW [employer] 05/13/24 Batool Celis MD [address] [place] [address] [place] [address] Radiation Oncologist Radiology-Radiation Oncology 06/08/24 documented as of this encounter
--- OUTSIDE RECORDS SUMMARY | 2025-03-01 15:49 | XMS_ITS | Encounter Summary ---
Author Organization [place] [address] Care Team Providers Care Squash Centre Manager Name Role Phone Chetna Cedeno MD Primary Care Provider [phone] Arlyn Schmidt MD Unavailable [phone] Tacho Echavarria MD Unavailable [phone] Matt Ulrich MD Unavailable [phone] Eze Brock Unavailable Annette Walker Unavailable [phone] Batool Celis MD Unavailable [phone] Reason for Visit * Reason Onset Date Comments Symptom Call 01/15/2025 shakiness, light headed, cold chills, and breaking out in sweats Encounter Details Date Type Department Care Team (Late st Contact Info) Description 01/15/2025 Telephone [facility] Medical Oncology [place], [place] [phone] Tacho Echavarria MD [address] [place] [address] Symptom Call (shakiness, light headed, cold [...] your doctor or pharmacy? Never 11/07/2023 [facility] Utilities Answer Date Recorded In [...] Total Score 5 07/07/2024 [facility] of Occupat ional Health - Occupational Stress [...] in a retirement (including now)? No 11/07/2023 [facility] IP Transportation Answer [...] be seen. Patient scheduled for 1:30 with VULCANIZING MACHINE OPERATOR and 1:15 for labs. * Telephone Encounter [...] no What Location is the Patient seen at:[facility] Preferred call back number:[phone] Explained to the caller, if this is a medical emergency please call 911 or go to the nearest emergency room. documented in this encounter Plan of Treatment Upcoming Encounters Date Type Department Care Team (Late st Contact Info) Description 03/09/2025 12:45 PM EDT Procedure visit [facility] [address] [facility] [address] [place] [address] Samm Ledesma, VULCANIZING MACHINE OPERATOR [address] [place] [address] 03/10/2025 12:30 PM EDT Appointment [place] [address] Tacho Echavarria MD [address] [place] [address] [phone] 03/10/2025 1:00 PM EDT Appointment [facility] On[facility] [place], [place] [phone] Tacho Echavarria MD [address] [place] [address] 04/29/2025 9:15 AM EDT Appointment [facility] ONC [place], [place] [phone] Batool Celis MD [address] [place] [address] [place] [address] 05/19/2025 2:15 PM EST Office Visit [facility] [address] [facility] [address] [place] [address] Sin Tran MD [address] [place] [address] 08/12/2025 10:40 AM EST Appointment [facility] [place] [address] Matt Ulrich MD [address] [place] [address] [place] [address] documented as of this encounter Goals Goal [...] - 145 mmol/L 01/15/2025 2:05 PM EDT [facility] Potassium 4.0 3.5 - 5.0 mmol/L 01/15/2025 2:05 PM EDT [facility] Chloride 107 98 - 107 mmol/L 01/15/2025 2:05 PM EDT [facility] Total CO2 25 22 - 29 mmol/L 01/15/2025 2:05 PM EDT [facility] Anion Gap 8 7 - 16 mmol/L 01/15/2025 2:05 PM EDT [facility] Calcium 9.3 8.6 - 10.4 mg/dL 01/15/2025 2:05 PM EDT [facility] Glucose Lvl 88 70 - 99 mg/dL 01/15/2025 2:05 PM EDT [facility] BUN 13 6 - 20 mg/dL 01/15/2025 2:05 PM EDT [facility] Creatinine 0.85 0.51 - 1.30 mg/dL 01/15/2025 2:05 PM EDT [facility] Albumin 4.0 3.5 - 5.2 gm/dL 01/15/2025 2:05 PM EDT [facility] Total Protein 6.7 6.4 - 8.3 gm/dL 01/15/2025 2:05 PM EDT [facility] Bili Total 0.3 0.2 - 1.3 mg/dL 01/15/2025 2:05 PM EDT [facility] ALT 8 <=41 U/L 01/15/2025 2:05 PM EDT [facility] AST 14 <=40 U/L 01/15/2025 2:05 PM EDT [facility] Alk Phos 124(H) 36 - 123 U/L 01/15/2025 2:05 PM EDT [facility] eGFR (CKD-EPIcr 2020) 79 >=60 mL/min/1.7 3 m2 01/15/2025 2:05 PM EDT [facility] Comment:Estimated GFR was ca lculated using the CKD-EPIcr (2020) equation refit without race. The equation is recommended by the National Kidney Foundation - [place] [employer] of Nephrology Task Force. Blood VENOUS BLOOD / Unknown Venipuncture / Unknown 01/15/2025 1:41 PM EDT 01/15/2025 1:44 PM EDT us Heydi Sorensen APRN CHEMISTRY ORDERABLES Final Res ult [facility] [address] [place] [id number] * (ABNORMAL) CBC WITH DIFF (01/15/2025 1:41 PM EDT) WBC 4.5 3.7 - 10.3 x10(3)/mc L 01/15/2025 1:49 PM EDT [facility] RBC 3.40(L) 3.90 - 5.20 x10(6)/mc L 01/15/2025 1:49 PM EDT [facility] Hgb 10.3(L) 11.2 - 15.7 g/dL 01/15/2025 1:49 PM EDT [facility] Hct 31.7(L) 34.0 - 45.0 % 01/15/2025 1:49 PM EDT [facility] MCV 93.2 80.0 - 100.0 fL 01/15/2025 1:49 PM EDT [facility] MCH 30.3 26.0 - 34.0 pg 01/15/2025 1:49 PM EDT [facility] MCHC 32.5 30.7 - 35.5 g/dL 01/15/2025 1:49 PM EDT [facility] RDW 14.7 <=14.9 % 01/15/2025 1:49 PM EDT [facility] Platelet 165 155 - 369 x10(3)/mc L 01/15/2025 1:49 PM EDT [facility] MPV 8.4(L) 8.8 - 12.5 fL 01/15/2025 1:49 PM EDT [facility] Neut # Prelim 2.9 1.6 - 6.1 x10(3)/mc L 01/15/2025 1:49 PM EDT [facility] Comment:Preliminary automate d absolute neutrophil count. Value may change if manual differential is indicated. Neut Percent 64.2 % 01/15/2025 1:49 PM EDT [facility] Comment:Neutrophils equals s egs plus bands Imm Gran% 0.2 % 01/15/2025 1:49 PM EDT [facility] Comment:Automated count of m etamyelocytes, myelocytes and promyelocytes. Lymph Percent 28.3 % 01/15/2025 1:49 PM EDT [facility] Dauphin Percent 5.3 % 01/15/2025 1:49 PM EDT [facility] Eos Percent 1.3 % 01/15/2025 1:49 PM EDT [facility] Baso Percent 0.7 % 01/15/2025 1:49 PM EDT [facility] Neut # 2.9 1.6 - 6.1 x10(3)/mc L 01/15/2025 1:49 PM EDT [facility] Comment:Neutrophils equals s egs plus bands IMMGRAN# 0.0 0.0 - 0.1 x10(3)/mc L 01/15/2025 1:49 PM EDT [facility] Comment:Automated count of m etamyelocytes, myelocytes and promyelocytes. An absolute IG <0.1 is reported as 0.0. Lymph # 1.3 1.2 - 3.9 x10(3)/ L 01/15/2025 1:49 PM EDT [facility] Dauphin # 0.2(L) 0.3 - 0.9 x10(3)/ L 01/15/2025 1:49 PM EDT [facility] Eos# 0.1 0.0 - 0.5 x10(3)/ L 01/15/2025 1:49 PM EDT [facility] Baso # 0.0 0.0 - 0.1 x10(3)/ L 01/15/2025 1:49 PM EDT [facility] Blood VENOUS BLOOD / Unknown Venipuncture / Unknown 01/15/2025 1:41 PM EDT 01/15/2025 1:44 PM EDT us Heydi Sorensen VULCANIZING MACHINE OPERATOR HEMATOLOGY ORDERABLES Final Re sult [facility] 1 [place] [address] documented in this encounter Visit [...] documented as of this encounter Care Teams Squash Centre Manager Relationship Specialty [place] [address] [place] [address] PCP - General 06/21/10 Arlyn Schmidt MD [address] [place] [address] Consulting Physician Internal Medicine-Endocrinology, Diabetes & Metabolism 11/28/20 aTcho Echavarria MD 1 [place] [address] Internal Medicine-Medical Oncology 11/12/23 Matt Ulrich MD 1 [place] [address] Surgery-Surgical Oncology 12/04/23 Eze Brock Pastoral Care 12/13/23 Annette Walker, SAW MAN Emergency Response Coordinator 05/13/24 Batool Celis MD 1 [facility] [place] [address] Radiation Oncologist Radiology-Radiation Oncology 06/08/24 documented as of this encounter
--- OUTSIDE RECORDS SUMMARY | 2025-03-01 15:49 | XMS_ITS ---
Author Organization Emilee VELIZJude OD Address [facility] [place] [address] Phone Care Team Providers Care Cotton Roll Packer Name Role Phone Chetna Cedeno MD Primary Care Provider [phone] Arlyn Schmidt MD Unavailable [phone] Tacho Echavarria MD Unavailable [phone] Matt Ulrich MD Unavailable [phone] Eze Brock Unavailable Annette Walker Unavailable [phone] Batool Celis MD Unavailable [phone] Problems * This document contains information received from the source organization and may not represent a complete record from that organization. Patient Care Coordination No te Formatting of this note migh t be different from the original. [facility] - Sin Tran MD Controlled [...] Functional capacity documented (EVERY VISIT)01/03/2022 Pharmacy: [facility] [address] [address] [facility] [phone] AIS POA: 02/10/2025 josh as expected #[id number] Josh 08-05-2018 adm Josh 08-14-18 adm UDS 08-08-18 adm Care gap audit completed by Medina White RN on 01/01/2022. 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 Care Team Medical Oncologist Dr. Tacho Echavarria Surgeon Dr. Matt Ulrich Radiation Oncologist Dr. Batool Celis Primary Care Physician Chetna Cedeno MD Cancer Diagnosis Information Diagnosis date 10/29/23 Diagnosis and Staging information Invasive Ductal Carcinoma, right breast Clinical Stage IIIB (cT3, cN3a(f), M0, G3, ER+, VT+, Her2-) Pathologic Stage y(pT3, pN3a, G3 ER+, VT+, Her2-) Tumor markers Breast: Estrogen Receptor positive (92%) Progesterone Receptor positive (55%) Her-2 negative Background Information/Additional Screening Recommendations Genetics testing Negative ([facility] Hereditary Cancer 67-gene panel) Tobacco use Nonsmoker. [...] up to GI tolerance for2 yr planned (The [place]-E regimen) Radiation therapy External beam radiotherapy to a total dose of 60 Gy; 50 Gy to right chest wall and regional lymph nodes including internal mammary + 10 Gy boost to the undissected nodes. Delivered in a total of 30 fractions Endocrine Therapy Arimidex started 10/08/24 + Verzenio. Changed to Aromasin give [facility] Oncology Timeline Oncology History Invasive ductal [...] to GI tolerance for 2 yr planned (The [place]-E regimen) 10/2024 - changed to Aromasin d/t [...] General Health Continue follow-up with PCP and COAT MAKER as directed Recommendations Self-care plan: What you [...] with your body,see your regular doctor, physician contact lens assistant, or nurse practitioner. 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
--- OUTSIDE RECORDS SUMMARY | 2025-03-01 15:49 | XMS_ITS | Encounter Summary ---
Author Organization [place] [address] Care Team Providers Care Bank Messenger Name Role Phone Chetna Cedeno MD Primary Care Provider [phone] Arlyn Schmidt MD Unavailable [phone] Tacho Echavarria MD Unavailable [phone] Matt Ulrich MD Unavailable [phone] Eze Brock Unavailable Annette Walker Unavailable [phone] Batool Celis MD Unavailable [phone] Encounter Details Date Type Department Care Team (Late st Contact Info) Description 01/13/2025 Plan of Care Documentation [facility] Physical Therapy [address] [place] [address] Social History Tobacco Use Types [...] your doctor or pharmacy? Never 11/07/2023 [facility] Utilities Answer Date Recorded In [...] in a half-way (including now)? No 11/07/2023 [facility] IP Transportation Answer [...] Notes * Therapist Plan of Care - Shuanna Workman, PT - 01/13/2025 5:35 PM EDT [...] to walk with no AD by then, [place] (but pt states that she was told this may have been a misdiagnosis), currently taking chemo pill, R mastectomy Jun 2024, radiation ended 09/25/24, chronic back issues with sciatica Physician: Jericho ESCOBAR Follow Up: 11/11/24 Evaluation Date: 10/30/24 Reassessment Due: 12/26/24 Primary Insurance: MEDICAID /[facility] [id number] [facility] Secondary Insurance: n/a Insurance Authorization: AMB REFERRAL TO PHYSICAL THERAPY Authorized (10/08/2024-01/28/2025) Visits Requested Visits Authorized Visits Completed Visits Scheduled -- Details Referral ID: [id number] Authorization Status Reason: Received Carrier Authorization Authorization Comments: -- Referred To: Shaunna Workman PT at [facility] PT Referred By: Tacho Echavarria MD at [facility] CANCER CTR MED ONC, [facility] Date: 10/08[facility]24 Referral Reasons: Specialty Services [...] other week Needs Assistance: No Understood: Yes floor inspector // bars with unilat UE support [] high marches x10B [] hamstring curls x10B floor inspector // bars with B UE support [] [...] deficits. pt verbalized understanding of this again. floor inspector // bars with unilat UE support [] [...] arm swing during gait [] NMR education floor inspector // bars with no support with gait [...] up about 2 days ago. Access Code: [email or web address] URL: [email or web address] Date: 11/11/2024 Prepared by: Romana Bowman Exercises [...] will be Independent with HEP to improve penitentiary health and reduce risk for injury. indbut [...] increase from 727 feet with RW to 7200-0501 feet with LRAD to improve gait elisha [...] away. Treatments to consist of Therapeutic exercise 43716, Neuromuscular re-education 66886, Manual soft tissue and/or joint mobilization 35559, Patient education, Therapeutic activity 89074, and Gait training 69200. Electronically signed by: Signed: Shaunna Workman PT Date: 01/13/2025 documented in this encounter Plan of Treatment Upcoming Encounters Date Type Department Care Team (Late st Contact Info) Description 03/09/2025 12:45 PM EDT Procedure visit [facility] [address] [facility] [address] [place] [address] Samm Ledesma, BELL CAPTAIN [address] [place] [address] 03/10/2025 12:30 PM EDT Appointment [place] [address] Tacho Echavarria MD [address] [place] [address] 03/10/2025 1:00 PM EDT Appointment [facility] [place] [address] Tacho Echavarria MD [address] [place] [address] 04/29/2025 9:15 AM EDT Appointment [place] [address] Batool Celis MD [address] [place] [address] [place] [address] 05/19/2025 2:15 PM EST Office Visit [address] [address] Sin Tran MD [address] [place] [address] 08/12/2025 10:40 AM EST Appointment [facility] Women's Wellness [facility] [place] [address] Matt Ulrich MD [address] [place] [address] documented as of this encounter Goals Goal [...] documented as of this encounter Care Teams Bank Messenger Relationship Specialty [place] [address] [place] [address] PCP - General 06/21/10 Arlyn Schmidt MD [address] [place] [address] Consulting Physician Internal Medicine-Endocrinology, Diabetes & Metabolism 11/28/20 Tacho Echavarria MD 1 [place] [address] Internal Medicine-Medical Oncology 11/12/23 Matt Ulrich MD 1 [place] [address] Surgery-Surgical Oncology 12/04/23 Eze Brock Pastoral Care 12/13/23 Annette Walker MSW Oxide Furnace Tender 05/13/24 Batool Celis MD [address] [place] [address] [place] [address] Radiation Oncologist Radiology-Radiation Oncology 06/08/24 documented as of this encounter
--- OUTSIDE RECORDS SUMMARY | 2025-03-01 15:50 | XMS_ITS | Encounter Summary ---
Author Organization [place] [address] Care Team Providers Care Gasfitter Name Role Phone Chetna Cedeno MD Primary Care Provider [phone] Arlyn Schmidt MD Unavailable [phone] Tacho Echavarria MD Unavailable [phone] Matt Ulrich MD Unavailable [phone] Eze Brock Unavailable Annette Walker Unavailable [phone] Batool Celis MD Unavailable [phone] Encounter Details Date Type Department Care Team (Late st Contact Info) Description 01/28/2025 Orders Only [facility] Medical Oncology [place], [place] [id number] Tacho Echavarria MD [address] [place] [address] [phone] Invasive ductal carcinoma of breast, female, right [...] your doctor or pharmacy? Never 11/07/2023 [facility] Utilities Answer Date Recorded In the [...] Date Recorded PHQ-2 Total Score 5 07/07/2024 [facility] [place] of Occupat ional Health - Occupational Stress [...] a senior care (including now)? No 11/07/2023 [facility] IP Transportation Answer D [...] NEUROLOGY HECTOR [address] [facility] [address] [place], [place] [id number] Samm Ledesma APRN [address] [place], [place] [id number] 03/10/2025 12:30 PM EDT Appointment [facility] [place] [address] Tacho Echavarria MD [address] [place] [address] 03/10/2025 1:00 PM EDT Appointment [facility] On[facility] [place], [place] [id number] Tacho Echavarria MD [address] [place] [address] [phone] 04/29/2025 9:15 AM EDT Appointment [facility] [place] [place] [address] Batool Celis MD [address] [place] [address] [place] [address] 05/19/2025 2:15 PM EST Office Visit [place] [address] [place] [address] Sin Tran MD [address] [place], [place] [address] 08/12/2025 10:40 AM EST Appointment [facility] Women's Wellness [place] [facility] [place] [address] Matt Ulrich MD [address] [facility] [address] [place] [address] documented as of this encounter Goals Goal [...] pg/mL 02/04/2025 4:31 PM EDT [facility] Folate 6.16 >=4.80 ng/mL 02/04/2025 4:31 PM EDT [facility] Blood VENOUS BLOOD / Unknown Venipuncture / Unknown 02/04/2025 2:03 PM EDT 02/04/2025 2:03 PM EDT Narrative [facility] - 02/04/2025 4:31 PM EDT Ingestion of haroon doses of biotin (>5 mg/day) taken within 8 hours of drawing blood sample can interfere with this immunoassay test. Tacho Echavarria MD CHEMISTRY ORDERABLES Final Result [facility] [address], [place] [address] * (ABNORMAL) CBC WITH DIFF (02/04/2025 2:03 PM EDT) WBC 8.1 3.7 - 10.3 x10(3)/mc L 02/04/2025 2:07 PM EDT [facility] RBC 2.95(L) 3.90 - 5.20 x10(6)/mc L 02/04/2025 2:07 PM EDT [facility] Hgb 9.4(L) 11.2 - 15.7 g/dL 02/04/2025 2:07 PM EDT [facility] Hct 28.1(L) 34.0 - 45.0 % 02/04/2025 2:07 PM EDT [facility] MCV 95.3 80.0 - 100.0 fL 02/04/2025 2:07 PM EDT [facility] MCH 31.9 26.0 - 34.0 pg 02/04/2025 2:07 PM EDT [facility] MCHC 33.5 30.7 - 35.5 g/dL 02/04/2025 2:07 PM EDT [facility] RDW 15.0(H) <=14.9 % 02/04/2025 2:07 PM EDT [facility] Platelet 163 155 - 369 x10(3)/mc L 02/04/2025 2:07 PM EDT [facility] MPV 8.8 8.8 - 12.5 fL 02/04/2025 2:07 PM EDT [facility] Neut # Prelim 5.6 1.6 - 6.1 x10(3)/mc L 02/04/2025 2:07 PM EDT [facility] Comment:Preliminary automate d absolute neutrophil count. Value may change if manual differential is indicated. Neut Percent 68.4 % 02/04/2025 2:07 PM EDT [facility] Comment:Neutrophils equals s egs plus bands Imm Gran% 0.2 % 02/04/2025 2:07 PM EDT [facility] Comment:Automated count of m etamyelocytes, myelocytes and promyelocytes. Lymph Percent 23.4 % 02/04/2025 2:07 PM EDT [facility] [place] Percent 5.7 % 02/04/2025 2:07 PM EDT [facility] Eos Percent 2.1 % 02/04/2025 2:07 PM EDT [facility] Baso Percent 0.2 % 02/04/2025 2:07 PM EDT [facility] Neut # 5.6 1.6 - 6.1 x10(3)/mc L 02/04/2025 2:07 PM EDT [facility] Comment:Neutrophils equals s egs plus bands IMMGRAN# 0.0 0.0 - 0.1 x10(3)/mc L 02/04/2025 2:07 PM EDT [facility] Comment:Automated count of m etamyelocytes, myelocytes and promyelocytes. An absolute IG <0.1 is reported as 0.0. Lymph # 1.9 1.2 - 3.9 x10(3)/mc L 02/04/2025 2:07 PM EDT [facility] [place] # 0.5 0.3 - 0.9 x10(3)/mc L 02/04/2025 2:07 PM EDT [facility] Eos# 0.2 0.0 - 0.5 x10(3)/mc L 02/04/2025 2:07 PM EDT [facility] Baso # 0.0 0.0 - 0.1 x10(3)/mc L 02/04/2025 2:07 PM EDT [facility] Blood VENOUS BLOOD / Unknown Venipuncture / Unknown 02/04/2025 2:03 PM EDT 02/04/2025 2:03 PM EDT Tacho Echavarria MD HEMATOLOGY ORDERABLES Final Result [facility] [address] [place] [address] * IRON+TIBC (02/04/2025 2:02 PM EDT) Iron 82 30 - 160 mcg/dL 02/04/2025 2:59 PM EDT [facility] Transferrin 279 200 - 360 mg/dL 02/04/2025 2:59 PM EDT [facility] Saturation 21 20 - 50 % 02/04/2025 2:59 PM EDT [facility], [facility] TIBC 391 250 - 400 mcg/dL 02/04/2025 2:59 PM EDT [facility] Blood VENOUS BLOOD / Unknown Venipuncture / Unknown 02/04/2025 2:02 PM EDT 02/04/2025 2:02 PM EDT [facility] Radha Echavarria MD CHEMISTRY ORDERABLES Final Result Performing Organization Address [facility] de Phone Number [facility] [address] [place] [address] [facility], [facility] [address] [facility], [place] [address] * (ABNORMAL) COMPREHENSIVE METABOLIC PANEL (02/04/2025 2:02 PM EDT) [facility] Signature Sodium 142 136 - 145 mmol/L 02/04/2025 2:28 PM EDT [facility] Potassium 3.3(L) 3.5 - 5.0 mmol/L 02/04/2025 2:28 PM EDT [facility] Chloride 108(H) 98 - 107 mmol/L 02/04/2025 2:28 PM EDT [facility] Total CO2 19(L) 22 - 29 mmol/L 02/04/2025 2:28 PM EDT [facility] Anion Gap 15 7 - 16 mmol/L 02/04/2025 2:28 PM EDT [facility] Calcium 8.6 8.6 - 10.4 mg/dL 02/04/2025 2:28 PM EDT [facility] Glucose Lvl 134(H) 70 - 99 mg/dL 02/04/2025 2:28 PM EDT [facility] BUN 12 6 - 20 mg/dL 02/04/2025 2:28 PM EDT [facility] Creatinine 0.78 0.51 - 1.30 mg/dL 02/04/2025 2:28 PM EDT [facility] Albumin 3.8 3.5 - 5.2 gm/dL 02/04/2025 2:28 PM EDT [facility] Total Protein 6.0(L) 6.4 - 8.3 gm/dL 02/04/2025 2:28 PM EDT [facility] Bili Total 0.3 0.2 - 1.3 mg/dL 02/04/2025 2:28 PM EDT [facility] ALT 8 <=41 U/L 02/04/2025 2:28 PM EDT [facility] AST 12 <=40 U/L 02/04/2025 2:28 PM EDT [facility] Alk Phos 95 36 - 123 U/L 02/04/2025 2:28 PM EDT [facility] eGFR (CKD-EPIcr 2020) 88 >=60 mL/min/1.7 3 m2 02/04/2025 2:28 PM EDT [facility] Comment:Estimated GFR was ca lculated using the CKD-EPIcr (2020) equation refit without race. The equation is recommended by the National Kidney Foundation - [place] Society of Nephrology Task Force. Blood VENOUS BLOOD / Unknown Venipuncture / Unknown 02/04/2025 2:02 PM EDT 02/04/2025 2:02 PM EDT Tacho Echavarria MD CHEMISTRY ORDERABLES Final Result [facility] 1 [place] [address] documented in this encounter Visit Diagnoses Diagnosis Invasive ductal carcinoma of breast, female, right (HCC)- Primary documented in this encounter Additional Health Concerns Assessment Noted Time PHQ-9 Depression Total Score: 17 024 8:39 AM EST PHQ-2 Depression Total Score: 5 07/07/20 8:39 AM EST documented as of this encounter Care Teams Gasfitter Relationship Specialty [place] [address] [place] [address] PCP - General 06/21/10 Arlyn Schmidt MD [address] [place] [address] Consulting Physician Internal Medicine-Endocrinology, Diabetes & Metabolism 11/28/20 Tacho Echavarria MD 1 [place] [address] Internal Medicine-Medical Oncology 11/12/23 Matt Ulrich MD 1 [place] [id number] Surgery-Surgical Oncology 12/04/23 Eze Brock Pastoral Care 12/13/23 Annette Walker, ARACELI Knitting Machine Fixer 05/13/24 Batool Celis MD 1 [facility] [place] [address] Radiation Oncologist Radiology-Radiation Oncology 06/08/24 documented as of this encounter
--- OUTSIDE RECORDS SUMMARY | 2025-03-01 15:50 | XMS_ITS | Encounter Summary ---
Author Organization [place] [address] Care Team Providers Care Jet Engine Mechanic Name Role Phone Chetna Cedeno MD Primary Care Provider [phone] Arlyn Schmidt MD Unavailable [phone] Tacho Echavarria MD Unavailable [phone] Matt Ulrich MD Unavailable [phone] Eze Brock Unavailable Annette Walker Unavailable [phone] Batool Celis MD Unavailable [phone] Reason for Visit * Reason Comments Medication Refill Encounter Details Date Type Department Care Team (Late st Contact Info) Description 01/15/2025 Refill [facility] [address] [place] [address] [place] [address] [place] [address] Medication Refill Social History Tobacco [...] in a retirement (including now)? No 11/07/2023 [facility] IP Transportation Answer D [...] HECTOR [address] [place] [address] Samm Ledesma SPRING BENDER [address] [address] [place] [address] 03/10/2025 12:30 PM EDT Appointment [place] [address] Tacho Echavarria MD [address] [place] [address] 03/10/2025 1:00 PM EDT Appointment [facility] [place] [address] Tacho Echavarria MD [address] [place] [address] 04/29/2025 9:15 AM EDT Appointment [place] [address] Batool Celis MD [address] [place] [address] [place] [address] 05/19/2025 2:15 PM EST Office Visit [facility] [address] [place] [address] [address] [facility] [address] [place] [address] Sin Tran MD [address] [facility] [place] [address] 08/12/2025 10:40 AM EST Appointment [facility] Women's Wellness [place] [address] [facility] [place] [address] Matt Ulrich MD [address] [place] [address] [address] [place] [address] documented as of this encounter Goals Goal [...] documented as of this encounter Care Teams Jet Engine Mechanic Relationship Specialty [place] [address] [place] [address] PCP - General 06/21/10 Arlyn Schmidt MD [address] [place], [place] [address] Consulting Physician Internal Medicine-Endocrinology, Diabetes & Metabolism 11/28/20 Tacho Echavarria MD 1 [place], [place] [phone] Internal Medicine-Medical Oncology 11/12/23 Matt Ulrich MD 1 [place], [place] [phone] Surgery-Surgical Oncology 12/04/23 Eze Brock Pastoral Care 12/13/23 Annette Walker, AIR COMMODORE Heel Packer 05/13/24 Batool Celis MD 1 [facility] CANCER [place], [place] [phone] Radiation Oncologist Radiology-Radiation Oncology 06/08/24 documented as of this encounter
--- OUTSIDE RECORDS SUMMARY | 2025-03-01 15:50 | XMS_ITS | Clinical Summary ---
Author Organization [facility] Address [address] [place] [address] Phone Care Team Providers Care Wet Plant Operator Name Role Phone Chetna Cedeno MD Primary Care Provider [phone] Allergies Active Allergy Reactions Criticality Noted Date [...] 01/02/2025 7:27 PM EDT Emergency [facility] Emergency Department [address] [place] [address] Dallin Espinoza MD Heat exhaustion, [...] (ABNORMAL) BAMP (Na,K,Cl,CO2,Glu,BUN,Creat,Ca) (01/02/2025 5:13 PM EDT) [facility] BLD [place]REA NITROGEN 16 8 - 26 mg/dL [facility] [place] SODIUM 140 135 - 145 mmol/L [facility] [place] POTASSIUM 3.2(L) 3.6 - 5.1 mmol/L [facility] [place] CHLORIDE 107 98 - 111 mmol/L [facility] [place] CO2 20(L) 21 - 31 mmol/L [facility] [place] GLUCOSE, RANDOM 89 70 - 99 mg/dL [facility] [place] CREATININE 1.06 0.60 - 1.20 mg/dL [facility] [place] ANION GAP 13 4 - 16 mmol/L [facility] [place] CALCIUM 9.0 8.5 - 10.4 mg/dL [facility] [place] ESTIMATED GFR 61 >59 mL/min/1.7 3 m2 [facility] [place] Comment: Estimated GFR was calculated using the CKD-EPI cr (2020) equation refit without race. The equation is recommended by the National Kidney Foundation - [place] Society of Nephrology Task Force. Tested at [place] [id number] Whole Blood 01/02/2025 5:13 PM EDT 01/02/2025 5:25 PM EDT Dallin Espinoza MD LAB BLOOD ORDERABLES Final Result [facility] [address] [place] [address] [place] [address] * (ABNORMAL) CBC w/ Diff (01/02/2025 5:13 PM EDT) [facility] WBC 7.1 3.6 - 10.5 THOU/[facility] CHEMISTRY [place] RBC 3.75(L) 3.80 - 5.20 MIL/mcL [facility] [place] HEMOGLOBIN 11.2(L) 12.0 - 15.2 g/dL [facility] [place] HEMATOCRIT 33.6(L) 36 - 46 % [facility] [place] MCV 89.6 82 - 97 fL [facility] [place] MCH 30.0 27 - 33 pg [facility] [place] MCHC 33.5 32 - 36 g/dL [facility] [place] RDW 16.0 12.3 - 17.0 % [facility] [place] PLATELET 206 140 - 375 THOU/mcL [facility] [place] MPV 6.9(L) 7.0 - 11.5 fL [facility] [place] ABS. NEUTROPHIL 3.60 1.80 - 7.70 THOU/mcL [facility] [place] ABS LYMPHS 3.00 1.00 - 4.00 THOU/mcL [facility] [place] ABS MONOS 0.30 0.20 - 0.90 THOU/mcL [facility] [place] ABS EOS 0.10 0.03 - 0.45 THOU/mcL [facility] [place] ABS BASOS 0.10 0.00 - 0.20 THOU/mcL [facility] [place] SEGS 51 % [facility] [place] LYMPHOCYTES 43 % CHEMISTR Y [place]TH MONOCYTES 4 % [facility] [place] EOSINOPHIL 1 % [facility] [place] BASOPHILS 1 % [facility] [place] Comment:Tested at [facility] [address] [facility] [address] Whole Blood 01/02/2025 5:13 PM EDT 01/02/2025 5:25 PM EDT us Dallin Espinoza MD LAB BLOOD ORDERABLES Final Result [facility] [address] [place] [address] [facility] [address] [place] [address] * ECG 12 lead (01/02/2025 4:37 PM [...] QTcF 417 ms TH TRACEMASTER QRS Horizontal [place] -19 deg TH TRACEMASTER QRS AXIS 16 deg TH TRACEMASTER I-40 Horizontal [place] 46 deg TH TRACEMASTER I-40 FRONT AXIS -17 deg TH TRACEMASTER T-40 Horizontal [place] -50 deg TH TRACEMASTER T-40 Front [place] 51 deg TH TRACEMASTER T Horizontal [place] 52 deg TH TRACEMASTER T WAVE AXIS 16 deg TH TRACEMASTER S-T Horizontal [place] 60 deg TH TRACEMASTER S-T Front [place] 24 deg TH TRACEMASTER ECG IMPRESSION - BORDERLINE ECG - TH TRACEMASTER ECG IMPRESSION SR-Sinus rhythm-normal P axis, V-rate 50-99 TH TRACEMASTER ECG IMPRESSION LVHVP-Probable left ventricular hypertrophy-mul tiple LVH criteria TH TRACEMASTER ECGGUID [id number] TH TRACEMASTER 01/02/2025 4:37 PM EDT us Dallin Espinoza MD ECG ORDERABLES Final Resu lt TH TRACEMASTER from Last 3 Months Insurance [facility] MEDICAID Care Teams Wet Plant Operator Relationship Specialty Start Date End Date Chetna Cedeno MD [facility] [address] [place] [address] PCP - General Family Medicine 01/02/25
--- OUTSIDE RECORDS SUMMARY | 2025-03-01 15:50 | XMS_ITS | Encounter Summary ---
Author Organization [place] [address] Care Team Providers Care Soda Dialyzer Name Role Phone Chetna Cedeno MD Primary Care Provider [phone] Arlyn Schmidt MD Unavailable [phone] Tacho Echavarria MD Unavailable [phone] Matt Ulrich MD Unavailable [phone] Eze Brock Unavailable Annette Walker Unavailable [phone] Batool Celis MD Unavailable [phone] Reason for Visit * Reason Comments Oncology Nurse Navigation Encounter Details Date Type Department Care Team (Late st Contact Info) Description 02/10/2025 Patient Outreach [facility] [address] [place], [place] [phone] Tacho Echavarria MD [address] [place] [address] [phone] Oncology Nurse Navigation Social History Tobacco Use [...] 11/07/2023 [facility] Utilities Answer Date Recorded In the past [...] Total Score 5 07/07/2024 [facility] of Occupat ional Health - Occupational [...] mcfp (including now)? No 11/07/2023 [facility] IP Transportation Answer [...] NN asking for a copy (printed for oyster picker) of the letter that Dr. Echavarria wrote regarding the air conditioner and asked for an update on getting a letter to help with her student loanforgiveness. She is in the area today and is asking if she can come and oyster picker these letters Theletter about the air [...] NEUROLOGY HECTOR [address] [facility] [address] [place] [address] Samm Ledesma, CLOTH BLEACHING RANGE BACK TENDER [address] [facility] [address] [place], [place] [phone] 03/10/2025 12:30 PM EDT Appointment [place] [address] Tacho Echavarria MD [address] [place] [address] 03/10/2025 1:00 PM EDT Appointment [facility] Medical Oncology [place], [place] [phone] Tacho Echavarria MD [address] [place] [address] 04/29/2025 9:15 AM EDT Appointment [place] [address] Batool Celis MD [address] [place] [address] [place] [address] 05/19/2025 2:15 PM EST Office Visit [place] [address] [place] [address] Sin Tran MD [address] [place] [address] 08/12/2025 10:40 AM EST Appointment [facility] Women's Wellness [place] [facility] [place] [address] Matt Ulrich MD [address] [place] [address] documented as of this encounter [...] [place] [address] [place] [phone] PCP - General 06/21/10 Arlyn Schmidt MD [address] [place] [address] Consulting Physician Internal Medicine-Endocrinology, Diabetes & Metabolism 11/28/20 Tacho Echavarria MD 1 [place] [address] Internal Medicine-Medical Oncology 11/12/23 Matt Ulrich MD 1 [place] [address] Surgery-Surgical Oncology 12/04/23 Eze Brock Pastoral Care 12/13/23 Annette Walker, STOCKROOM WORKER Ornamental Ironworking Supervisor 05/13/24 Batool Celis MD [address] [facility] [place] [address] Radiation Oncologist Radiology-Radiation Oncology 06/08/24 documented as of this encounter
--- OUTSIDE RECORDS SUMMARY | 2025-03-01 15:50 | XMS_ITS | Encounter Summary ---
Author Organization [place] [address] Care Team Providers Care Date Puller Name Role Phone Chetna Cedeno MD Primary Care Provider [phone] Arlyn Schmidt MD Unavailable [phone] Tacho Echavarria MD Unavailable [phone] Matt Ulrich MD Unavailable [phone] Eze rBock Unavailable Annette Walker Unavailable [phone] Batool Celis MD Unavailable [phone] Reason for Visit * Reason Comments Pharmacy Oncology Management Abemaciclib Encounter Details Date Type Department Care Team (Latest Contact Info) Description 01/07/2025 Specialty Pharmacy [facility] [address] [place] [address] Anisa Lozoya CPhT Pharmacy Oncology [...] th e electric, gas, oil, or water [employer] threatened to shut off services in your [...] PHQ-2 Total Score 5 07/07/2024 [facility] of Occupat ional Health - Occupational Stress [...] a senior living (including now)? No 11/07/2023 [facility] IP Transportation Answer D [...] Rodriguez RPH - 01/07/2025 10:56 AM EDT [facility] - Care Plan and Refill Review Refill questions and refill history verified. Last assessment 12/25/24. No reassessment needed at this time. Chetna Rodriguez RPH Specialty Pharmacist documented in this encounter Plan of Treatment Upcoming Encounters Date Type Department Care Team (Late st Contact Info) Description 03/09/2025 12:45 PM EDT Procedure visit [facility] [address] [place] [address] Samm Ledesma, TELECOM BILLING ANALYST [address] [place] [address] 03/10/2025 12:30 PM EDT Appointment [facility] [place] [address] Tacho Echavarria MD [address] [place] [phone] 03/10/2025 1:00 PM EDT Appointment [facility] [place] [address] Tacho Echavarria MD [address] [place] [address] 04/29/2025 9:15 AM EDT Appointment [place] [address] Batool Celis MD [address] [place] [address] [place] [address] 05/19/2025 2:15 PM EST Office Visit [address] [address] Sin Tran MD [address] [place] [address] 08/12/2025 10:40 AM EST Appointment [facility] [place] [address] Matt Ulrich MD [address] [place] [address] documented as of this encounter Goals Goal [...] documented as of this encounter Care Teams Date Puller Relationship Specialty [place] [address] [place] [address] PCP - General 06/21/10 Arlyn Schmidt MD [address] [place] [address] Consulting Physician Internal Medicine-Endocrinology, Diabetes & Metabolism 11/28/20 Tacho Echavarria MD 1 [place] [address] Internal Medicine-Medical Oncology 11/12/23 Matt Ulrich MD 1 [place], [place] [phone] Surgery-Surgical Oncology 12/04/23 Eze Brock Pastoral Care 12/13/[address] Conductor 05/13/24 Batool Celis MD 1 [facility] CANCER [place], [place] [phone] Radiation Oncologist Radiology-Radiation Oncology 06/08/24 documented as of this encounter
--- OUTSIDE RECORDS SUMMARY | 2025-03-01 15:50 | XMS_ITS | Encounter Summary ---
Author [place] [address] Care Team Providers Care Outside Solar Sales Consultant Name Role Phone Chetna Cedeno MD Primary Care Provider [phone] Arlyn Schmidt MD Unavailable [phone] Tacho Echavarria MD Unavailable [phone] Matt Ulrich MD Unavailable [phone] Eze Brock Unavailable Annette Walker Unavailable [phone] Batool Celis MD Unavailable [phone] Reason for Visit * Reason Onset Date Comments Symptom Call 01/29/2025 Diarrhea, body a ches, vomiting Encounter Details Date Type Department Care Team (Late st Contact Info) Description 01/29/2025 Telephone [facility] Medical Oncology [place], [place] [phone] Tacho Echavarria MD [address] [place] [address] [phone] Symptom Call (Diarrhea, body aches, vomiting) Social [...] your doctor or pharmacy? Never 11/07/2023 [facility] Utilities Answer Date Recorded [...] Date Recorded PHQ-2 Total Score 5 07/07/2024 [facility] [place] of Occupat ional Health - Occupational Stress [...] a long term (including now)? No 11/07/2023 [facility] IP Transportation Answer [...] way to [facility] [place] [facility] without being sick. She will call friend [...] the Patient seen at:[facility] Preferred call back number:[phone] RN is aware documented in this encounter Plan of Treatment Upcoming Encounters Date Type Department Care Team (Late st Contact Info) Description 03/09/2025 12:45 PM EDT Procedure visit [facility] [address] [facility] [address] [place] [address] Samm Ledesma APRN [address] [facility] [address] [place] [address] 03/10/2025 12:30 PM EDT Appointment [place] [address] Tacho Echavarria MD [address] [place] [address] 03/10/2025 1:00 PM EDT Appointment [facility] Oncology [place], [place] [phone] Tacho Echavarria MD [address] [place] [address] 04/29/2025 9:15 AM EDT Appointment [facility] RAD [place]C [place] [phone] Batool Celis MD [address] [facility] [address] [facility] [place] [address] 05/19/2025 2:15 PM EST Office Visit [facility] [place] [address] [facility] [address] [facility] [address] [place] [address] Sin Tran MD [address] [place] [address] [place] [address] 08/12/2025 10:40 AM EST Appointment [facility] [place] [phone] Matt Ulrich MD 20 [facility] 254 [place] [address] documented as of this encounter Goals Goal [...] documented as of this encounter Care Teams Outside Solar Sales Consultant Relationship Specialty [place] [address] [place] [address] PCP - General 06/21/10 Arlyn Schmidt MD [address] [place] [address] Consulting Physician Internal Medicine-Endocrinology, Diabetes & Metabolism 11/28/20 Tacho Echavarria MD 1 [place] [address] Internal Medicine-Medical Oncology 11/12/23 Matt Ulrich MD 1 [place] [address] Surgery-Surgical Oncology 12/04/23 Eze Brock Pastoral Care 12/13/23 Annette Walker, DIRECTOR OF SPORTS PERFORMANCE Bond Analyst 05/13/24 Batool Celis MD 1 [facility] [place] [address] Radiation Oncologist Radiology-Radiation Oncology 06/08/24 documented as of this encounter
--- OUTSIDE RECORDS SUMMARY | 2025-03-01 15:50 | XMS_ITS | Encounter Summary ---
Author [place] [address] Care Team Providers Care Petroleum Refinery Operator Name Role Phone Chetna Cedeno MD Primary Care Provider [phone] Arlyn Schmidt MD Unavailable [phone] Tacho Echavarria MD Unavailable [phone] Matt Ulrich MD Unavailable [phone] Eze Brock Unavailable Annette Walker Unavailable [phone] Batool Celis MD Unavailable [phone] Encounter Details Date Type Department Care Team (Latest Contact Info) Description 01/27/2025 Results Follow-Up [facility] 1 [place] [address] Benito Snell, PharmD PHARMACOGENOMIC PANEL [...] Date Recorded PHQ-2 Total Score 5 07/07/2024 [facility] of Occupat ional [facility] - Occupational Stress Questionnaire Answer Date [...] [facility] IP Transportation Answer [...] [facility] [address] [place] [address] Samm Ledesma, GROUP SEGMENT CONSULTANT [address] [facility] [address] [place], [place] [phone] 03/10/2025 12:30 PM EDT Appointment [place] [address] Tacho Echavarria MD [address] [place] [address] 03/10/2025 1:00 PM EDT Appointment [facility] [place] [address] Tacho Echavarria MD [address] [place] [address] 04/29/2025 9:15 AM EDT Appointment [place] [address] Batool Celis MD [address] [place] [address] [place] [address] 05/19/2025 2:15 PM EST Office Visit [facility] [address] [place] [address] Sin Tran MD [address] [place] [address] 08/12/2025 10:40 AM EST Appointment [facility] [place] [address] [facility] 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 Primary hypercoagulable state documented in this encounter Additional Health Concerns Assessment Noted Time PHQ-9 Depression Total Score: 17 024 8:39 AM EST PHQ-2 Depression Total Score: 5 07/07/20 24 8:39 AM EST documented as of this encounter Care Teams Petroleum Refinery Operator Relationship Specialty [place] [address] [place] [address] PCP - General 06/21/10 Arlyn Schmidt MD [address] [place] [address] Consulting Physician Internal Medicine-Endocrinology, Diabetes & Metabolism 11/28/20 Tacho Echavarria MD 1 [place] [phone] Internal Medicine-Medical Oncology 11/12/23 Matt Ulrich MD 1 [place] [phone] Surgery-Surgical Oncology 12/04/23 Eze Brock Pastoral Care 12/13/23 Annette Walker, DIRECTOR OF SOCIAL WORK Computer Systems Architect 05/13/24 Batool Celis MD 1 [facility] [place] [address] Radiation Oncologist Radiology-Radiation Oncology 06/08/24 documented as of this encounter
--- OUTSIDE RECORDS SUMMARY | 2025-03-01 15:50 | XMS_ITS | Encounter Summary ---
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) Procedures PHARMACOGENOMIC PANEL Aury Delgado MD 1 [place] [address] Phone: tel: fax: Referral ID Status Reason Start Date Expiration Date Visits Requested Visits Authorized [id number] Authorization Not Needed 01/21/2025 01/21/2026 1 1 Encounter Details Date Type Department Care Team (Late st Contact Info) Description 01/21/2025 Orders Only [facility] 1 [place] [address] Osvaldo Johnson, Clerical Staff Invasive ductal carcinoma [...] Total Score 5 07/07/2024 [facility] [place] of Occupat ional Health - Occupational Stress [...] time in the past 12 m [facility], were you homeless or living in a fci (including now)? No 11/07/2023 [facility] IP Transportation Answer D ate [...] HECTOR [address] [place] [address] Samm Ledesma APRN [address] [facility] [address] [place] [address] 03/10/2025 12:30 PM EDT Appointment [place] [address] Tacho Echavarria MD [address] [place] [address] 03/10/2025 1:00 PM EDT Appointment [facility] Oncology [place], [place] 2755017 Tacho Echavarria MD [address] [place] [address] 04/29/2025 9:15 AM EDT Appointment [facility]C [place] [phone] Batool Celis MD [address] [facility] [place] [address] 05/19/2025 2:15 PM EST Office Visit [facility] 49[address] [facility] 401 [facility] [address] [place] [address] Sin Tran MD [address] [place] [address] [place] [address] 08/12/2025 10:40 AM EST Appointment [facility] Women's Wellness [facility] [place] [phone] Matt Ulrich MD 20 [facility] 254 [place] [address] documented as of this encounter Goals Goal Patient Goal Type Associated Problems Recent Progress Patient-Stated? Author Blood Pressure < 140/90 Blood Pressure 121/77(02/04 2:04 PM EDT) No Chetna Cedeno MD [facility] Breast Health On track(2024 11:27 AM EDT) No Jasmin Porter, RAUL Note: Patient acknowledges understanding of new diagnosis, plan of care, available resources and how to contact Nurse Navigator with any future questions or concerns. Breast [facility] Breast Health Not on track(2024 [...] this encounter Results * PHARMACOGENOMIC PANEL (01/06/2025) [facility] Pharmacogenomic Lab Comments See Comment [facility] Comment:Hemizygous males and homozygous females are reported as HTR2C CC. Pharmacogenomic Lab Method See Comment CLARA Comment: This test was developed, and its performance characteristics determined by [facility], a clinical laboratory located at [address] [place] [address]. These tests have not been cleared or approved by the U.S. Food and Drug Administration. The FDA does not require this test to go through premarket FDA review. [facility] is certified under CLIA-88 and accredited by the [employer] as qualified to perform high-complexity testing. This test is approved for clinical use by the [facility]. This test should not be regarded as investigational or for research. *Genomic DNA was analyzed by PCR using [employer] TaqMan and/or SharesPostQ probe-based methods to interrogate the variant locations [...] are associated with more than one haplotype, [facility] infers and reports the most likely diplotype [...] Call. *The variant detection methods validated by [facility] provide >99.9% accuracy for the adult population; [...] pharmacogenomic specialist. For additional support, contact [facility] through the website or by calling [phone]. Blood 01/06/2025 01/22/2025 Narrative [facility] - 01/27/2025 This result has genomic variants that were not included in this document. 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)- Primary documented in this encounter Additional Health Concerns Assessment Noted Time PHQ-9 Depression Total Score: 17 024 8:39 AM EST PHQ-2 Depression Total Score: 5 07/07/20 24 8:39 AM EST documented as of this encounter Care Teams Calker Relationship Specialty [place] [address] [place] [address] PCP - General 06/21/10 Arlyn Schmidt MD [address] [place] [address] Consulting Physician Internal Medicine-Endocrinology, Diabetes & Metabolism 11/28/20 Tacho Echavarria MD [address] [place] [address] Internal Medicine-Medical Oncology 11/12/23 Matt Ulrich MD 1 [place] [address] Surgery-Surgical Oncology 12/04/23 Eze Brock Pastoral Care 12/13/23 Annette Walker, [facility] Processing Assistant 05/13/24 Batool Celis MD 1 [facility] [place] [address] Radiation Oncologist Radiology-Radiation Oncology 06/08/24 documented as of this encounter
--- OUTSIDE RECORDS SUMMARY | 2025-03-01 15:50 | XMS_ITS | Encounter Summary ---
Author [place] [address] Care Team Providers Care Hospital Pharmacy Director Name Role Phone Cehtna Cedeno MD Primary Care Provider [phone] Arlyn Schmidt MD Unavailable [phone] Tacho Echavarria MD Unavailable [phone] Matt Ulrich MD Unavailable [phone] Eze Brock Unavailable Annette Walker Unavailable [phone] Batool Celis MD Unavailable [phone] Reason for Visit * Reason Onset Date Comments Medication Refill 02/08/2025 Encounter Details Date Type Department Care Team (Late st Contact Info) Description 02/08/2025 Refill [facility] Medical Oncology [place], [place] [phone] Tacho Echavarria MD [address] [place] [address] [phone] Medication Refill Social History Tobacco Use Types [...] a care home (including now)? No 11/07/2023 [facility] IP [...] [facility] [address] [place] [address] Samm Ledesma APRN [address] [facility] [address] [place], [place] [phone] 03/10/2025 12:30 PM EDT Appointment [place] [address] Tacho Echavarria MD [address] [place] [address] [phone] 03/10/2025 1:00 PM EDT Appointment [place] [address] Tacho Echavarria MD [address] [place] [address] [phone] 04/29/2025 9:15 AM EDT Appointment [place] [address] Batool Celis MD [address] [place] [address] 05/19/2025 2:15 PM EST Office Visit [address] [address] Sin Tran MD [address] [place] [address] 08/12/2025 10:40 AM EST Appointment [facility] Women's Wellness [facility] [place] [address] Matt Ulrich MD [address] [place] [address] 254 [place] [phone] documented as of this encounter Goals Goal [...] documented as of this encounter Care Teams Hospital Pharmacy Director Relationship Specialty [place] [address] [place] [address] PCP - General 06/21/10 Arlyn Schmidt MD [address] [place] [address] Consulting Physician Internal Medicine-Endocrinology, Diabetes & Metabolism 11/28/20 Tacho Echavarria MD [address] [place] [address] Internal Medicine-Medical Oncology 11/12/23 Matt Ulrich MD 1 [place] [address] Surgery-Surgical Oncology 12/04/23 Delmy Eze Pastoral Care 12/13/23 Annette Walker, DENTAL NURSE Wood Drill Operator 05/13/24 Batool Celis MD 1 [facility] [place] [address] Radiation Oncologist Radiology-Radiation Oncology 06/08/24 documented as of this encounter
--- OUTSIDE RECORDS SUMMARY | 2025-03-01 15:50 | XMS_ITS | Encounter Summary ---
Author Organization [place] [address] Care Team Providers Care Supervisor Sawing And Assembly Name Role Phone Chetna Cedeno MD Primary Care Provider [phone] Arlyn Schmidt MD Unavailable [phone] Tacho Echavarria MD Unavailable [phone] Matt Ulrich MD Unavailable [phone] Eze Brock Unavailable Annette Walker Unavailable [phone] Batool Celis MD Unavailable [phone] Reason for Visit * Reason Onset Date Comments Patient Question 01/28/2025 question about test result Encounter Details Date Type Department Care Team (Late st Contact Info) Description 01/28/2025 Telephone [facility] Medical Oncology [place], [place] [phone] Tacho Echavarria MD [address] [place] [address] [phone] Patient Question (question about test result ) [...] doctor or pharmacy? Never 11/07/2023 [facility] Utilities Answer Date Recorded In the [...] a care home (including now)? No 11/07/2023 [facility] IP Transportation Answer D ate [...] results are in and forwarded to MD. Direct[employer] Plus message sent to patient, no need to move appt up sooner at this time. * Telephone Encounter - Sendy Waddell NA - 01/28/2025 10:43 AM EDT Reason for call: [facility] said it was something to do withDNA and what medications to take. Said she was unable to read results and was calling to see if anything needed to be done or if she was ok to wait until her appt. Preferred call back number: [phone] documented in this encounter Plan of Treatment Upcoming Encounters Date Type Department Care Team (Late st Contact Info) Description 03/09/2025 12:45 PM EDT Procedure visit [facility] NE[facility] [address] [facility] [address] [place] [address] Samm Ledesma APRN [address] [facility] [address] [place] [address] 03/10/2025 12:30 PM EDT Appointment [place] [address] Tacho Echavarria MD 1 [place], [place] [phone] 03/10/2025 1:00 PM EDT Appointment [facility] Medical Oncology [place], [place] [phone] Tacho Echavarria MD [address] [place] [address] [phone] 04/29/2025 9:15 AM EDT Appointment [facility] RAD ONC [place], [place] [phone] Batool Celis MD 1 [facility] [place] [address] 05/19/2025 2:15 PM EST Office Visit [address] [address] Sin Tran MD [address] [place] [address] 08/12/2025 10:40 AM EST Appointment [facility] Women's Wellness [facility] [place] [address] Matt Ulrich MD [address] [place] [address] 254 [place] [address] documented as of this encounter Goals Goal [...] as of this encounter Care Teams Supervisor Sawing And Assembly Relationship Specialty [place] [address] [place] [address] PCP - General 06/21/10 Arlyn Schmidt MD [facility] [place] [address] Consulting Physician Internal Medicine-Endocrinology, Diabetes & Metabolism 11/28/20 Tacho Echavarria MD 1 [place] [address] Internal Medicine-Medical Oncology 11/12/23 Matt Ulrich MD 1 [place] [address] Surgery-Surgical Oncology 12/04/23 Eze Brock Pastoral Care 12/13/23 Annette Walker MSW Fill Plant Operator 05/13/24 Batool Celis MD 1 [facility] [place] [address] Radiation Oncologist Radiology-Radiation Oncology 06/08/24 documented as of this encounter
--- OUTSIDE RECORDS SUMMARY | 2025-03-01 15:50 | XMS_ITS | Encounter Summary ---
Author Organization [place] [address] Care Team Providers Care Perinatology Physician Name Role Phone Chetna Cedeno MD Primary Care Provider [phone] Arlyn Schmidt MD Unavailable [phone] Tacho Echavarria MD Unavailable [phone] Matt Ulrich MD Unavailable [phone] Eze Brock Unavailable Annette Walker Unavailable [phone] Batool Celis MD Unavailable [phone] Reason for Visit * Reason Comments Medication Refill Encounter Details Date Type Department Care Team (Late st Contact Info) Description 01/15/2025 Refill [facility] NE[facility] [address] [facility] [address] [place] [address] Samm Ledesma, NEW AUTOS DELIVERY DRIVER [address] [facility] [address] [place] [address] Medication Refill Social History Tobacco Use Types [...] in a long-term (including now)? No 11/07/2023 [facility] IP [...] visit [facility] [address] [facility] [address] [place] [address] Samm Ledesma APRN [address] [facility] [address] [place] [address] 03/10/2025 12:30 PM EDT Appointment [facility] [place], [place] 2204117 Tacho Echavarria MD [address] [place] [address] 03/10/2025 1:00 PM EDT Appointment [facility] [place] [address] Tacho Echavarria MD 1 [place] [address] 04/29/2025 9:15 AM EDT Appointment [facility] [place] [place] [address] Batool Celis MD [address] [facility] [place] [address] 05/19/2025 2:15 PM EST Office Visit [address] [facility] 1D [place] [address] Sin Tran MD [address] [place] [address] 08/12/2025 10:40 AM EST Appointment [facility] [place] [address] Matt Ulrich MD [address] [place] [address] 254 [place] [address] documented as of this encounter Goals Goal [...] documented as of this encounter Care Teams Perinatology Physician Relationship Specialty [place] [address] [place] [address] PCP - General 06/21/10 Arlyn Schmidt MD [address] [place], [place] [phone] Consulting Physician Internal Medicine-Endocrinology, Diabetes & Metabolism 11/28/20 Tacho Echavarria MD 1 [place], [place] [phone] Internal Medicine-Medical Oncology 11/12/23 Matt Ulrich MD 1 [place], [place] [id number] Surgery-Surgical Oncology 12/04/23 Eze Brock Pastoral Care 12/13/23 Annette Walker MSW Hot Baller 05/13/24 Batool Celis MD 1 [facility] [place] [address] Radiation Oncologist Radiology-Radiation Oncology 06/08/24 documented as of this encounter
--- OUTSIDE RECORDS SUMMARY | 2025-03-01 15:50 | XMS_ITS | Encounter Summary ---
Author [place] [address] Care Team Providers Care Pipe Organ Mechanic Name Role Phone Chetna Cedeno MD Primary Care Provider [phone] Arlyn Schmidt MD Unavailable [phone] Tacho Echavarria MD Unavailable [phone] Matt Ulrich MD Unavailable [phone] Eze Brock Unavailable Annette Walker Unavailable [phone] Batool Celis MD Unavailable [phone] Reason for Visit * Reason Comments Oncology Nurse Navigation Encounter Details Date Type Department Care Team (Late st Contact Info) Description 01/29/2025 Patient Outreach [facility] TUM[facility] [address] [place], [place] [id number] Shilpa Cline, RN Oncology Nurse Navigation Social [...] th e electric, gas, oil, or water [employer] threatened to shut off services in your [...] Date Recorded PHQ-2 Total Score 5 07/07/2024 [facility] [place] of Occupat ional Health - Occupational Stress [...] in a mcc (including now)? No 11/07/2023 [facility] IP Transportation Answer D [...] [facility] [address] [place] [address] Samm Ledesma APRN [address] [place] [address] 03/10/2025 12:30 PM EDT Appointment [place] [address] Tacho Echavarria MD [address] [place] [address] 03/10/2025 1:00 PM EDT Appointment [place] [address] Tacho Echavarria MD [address] [place] [address] 04/29/2025 9:15 AM EDT Appointment [facility] RAD ONC One [place], [place] [phone] Batool Celis MD 1 [facility] [place] [address] 05/19/2025 2:15 PM EST Office Visit [address] [place] [address] Sin Tran MD [address] [place] [address] 08/12/2025 10:40 AM EST Appointment [facility] Women's Wellness [place] One [facility] [place] [address] Matt Ulrich MD 20 [facility] [address] [place] [id number] documented as of this encounter Goals Goal [...] of this encounter Care Teams Pipe Organ Mechanic Relationship Specialty [place] [address] [place] [address] PCP - General 06/21/10 Arlyn Schmidt MD [address] [place], [place] [id number] Consulting Physician Internal Medicine-Endocrinology, Diabetes & Metabolism 11/28/20 Tacho Echavarria MD 1 [place] [address] Internal Medicine-Medical Oncology 11/12/23 Matt Ulrich MD 1 [place] [address] Surgery-Surgical Oncology 12/04/23 Eze Brock Pastoral Care 12/13/23 Annette Walker, ARACELI Healthcare Sales Representative 05/13/24 Batool Celis MD 1 [facility] [place] [address] Radiation Oncologist Radiology-Radiation Oncology 06/08/24 documented as of this encounter
--- OUTSIDE RECORDS SUMMARY | 2025-03-01 15:50 | XMS_ITS | Encounter Summary ---
Author Organization [place] [address] Care Team Providers Care Marine Electrician Name Role Phone Chetna Cedeno MD Primary Care Provider [phone] Arlyn Schmidt MD Unavailable [phone] Tacho Echavarria MD Unavailable [phone] Matt Ulrich MD Unavailable [phone] Eze Brock Unavailable Annette Walker Unavailable [phone] Batool Celis MD Unavailable [phone] Encounter Details Date Type Department Care Team (Late st Contact Info) Description 12/25/2024 Telephone [facility] [place] [address] Jasmin Porter RN Social History [...] Date Recorded PHQ-2 Total Score 5 07/07/2024 [facility] of Occupat ional [facility] - Occupational Stress Questionnaire Answer [...] a group home (including now)? No 11/07/2023 [facility] IP Transportation Answer [...] EDT Procedure visit [facility] [address] [place] [address] Samm Ledesma, WET INSPECTOR OPTICAL GLASS [address] [place], [place] [id number] 03/10/2025 12:30 PM EDT Appointment [place] [address] Tacho Echavarria MD [address] [place] [address] 03/10/2025 1:00 PM EDT Appointment [facility] [place] [address] Tacho Echavarria MD [address] [place] [address] 04/29/2025 9:15 AM EDT Appointment [facility] [address] Batool Celis MD [address] [place] [address] [place] [address] 05/19/2025 2:15 PM EST Office Visit [facility] [address] [place] [address] Sin Tran MD [address] [place] [address] 08/12/2025 10:40 AM EST Appointment [facility] [place] One [facility] [place] [address] Matt Ulrich MD [address] [place] [address] DR MUSA H[place] [address] documented as of this encounter Goals Goal [...] documented as of this encounter Care Teams Marine Electrician Relationship Specialty [place] [address] [place] [address] PCP - General 06/21/10 Arlyn Schmidt MD [address] [place], [place] [address] Consulting Physician Internal Medicine-Endocrinology, Diabetes & Metabolism 11/28/20 Tacho Echavarria MD 1 [place] [address] Internal Medicine-Medical Oncology 11/12/23 Matt Ulrich MD 1 [place], [place] 477[address]17 Surgery-Surgical Oncology 12/04/23 Eze Brock Pastoral Care 12/13/23 Annette Walker, STATISTICAL GENETICIST Counter Former 05/13/24 Batool Celis MD 1 [facility] [place] [address] Radiation Oncologist Radiology-Radiation Oncology 06/08/24 documented as of this encounter
--- OUTSIDE RECORDS SUMMARY | 2025-03-01 15:50 | XMS_ITS | Encounter Summary ---
Author Organization [place] [address] Care Team Providers Care Budget Consultant Name Role Phone Chetna Cedeno MD Primary Care Provider [phone] Arlyn Schmidt MD Unavailable [phone] Tacho Echavarria MD Unavailable [phone] Matt Ulrich MD Unavailable [phone] Eze Brock Unavailable Annette Walker Unavailable [phone] Batool Celis MD Unavailable [phone] Encounter Details Date Type Department Care Team (Late st Contact Info) Description 02/10/2025 Orders Only [place] [address] Shilpa Cline, RN Social History [...] Recorded In the past 12 months has [employer], oil, or water [employer] threatened to shut off services in your [...] Date Recorded PHQ-2 Total Score 5 07/07/2024 [facility] of Occupat ional [facility] - Occupational Stress Questionnaire Answer Date [...] in a custodial (including now)? No 11/07/2023 [facility] IP Transportation Answer [...] [facility] [address] [place] [address] Samm Ledesma, PLATE GRAINER APPRENTICE [address] [facility] [address] [place], [place] [address] 03/10/2025 12:30 PM EDT Appointment [facility] [place], [place] 0899217 Tacho Echavarria MD [address] [place] [address] 03/10/2025 1:00 PM EDT Appointment [facility] Medical Oncology [place], [place] 757[address]17 Tacho Echavarria MD [address] [place] [address] 04/29/2025 9:15 AM EDT Appointment [facility] [place] [address] Batool Celis MD [address] [place] [address] [place] [address] 05/19/2025 2:15 PM EST Office Visit [facility] [address] [place] [address] [address] [place] [address] Sin Tran MD [address] [place] [address] 08/12/2025 10:40 AM EST [facility]ointment [facility] [place] One [facility] [place] [address] Matt Ulrich MD [address] [place] [address] DR MUSA Hameed [facility] [place] [address] documented as of this [...] documented as of this encounter Care Teams Budget Consultant Relationship Specialty [place] [address] [place] [address] PCP - General 06/21/10 Arlyn Schmidt MD [address] [place], [place] [address] Consulting Physician Internal Medicine-Endocrinology, Diabetes & Metabolism 11/28/20 Tacho Echavarria MD 1 [place] [address] Internal Medicine-Medical Oncology 11/12/23 Matt Ulrich MD 1 [place], [place] 4[address] Surgery-Surgical Oncology 12/04/23 Eze Brock Pastoral Care 12/13/23 Annette Walker, PREFINISH OPERATOR Floatlight Powder Mixer 05/13/24 Batool Celis MD 1 [facility] [place]ER [place], [place] 56[address]17 Radiation Oncologist Radiology-Radiation Oncology 06/08/24 documented as of this encounter
--- OUTSIDE RECORDS SUMMARY | 2025-03-01 15:50 | XMS_ITS | Encounter Summary ---
Author [place] [address] Care Team Providers Care Bsw Name Role Phone Chetna Cedeno MD Primary Care Provider [phone] Arlyn Schmidt MD Unavailable [phone] Tacho Echavarria MD Unavailable [phone] Matt Ulrich MD Unavailable [phone] Eez Brock Unavailable Annette Walker BURIAL VAULT MAKER Unavailable [phone] Batool Celis MD Unavailable [phone] Encounter Details Date Type Department Care Team (Late st Contact Info) Description 01/29/2025 Social Work [facility] Cancer Care [facility] [place] [address] Sonny Fleming, BURIAL VAULT MAKER Social History Tobacco Use Types Packs/Day Years [...] from your doctor or pharmacy? Never 11/07/2023 [facility] Utilities Answer Date Recorded In the past 12 months has th e electric, gas, oil, or water [employer] threatened to shut off services in your [...] Date Recorded PHQ-2 Total Score 5 07/07/2024 [facility] [place] of Occupat ional Health - Occupational Stress [...] a care home (including now)? 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 GEOSPATIAL SYSTEMS INTEGRATOR followed up with MAGAN Reid to discuss [...] [facility] [address] [place] [address] Samm Ledesma APRN [address] [place] [address] 03/10/2025 12:30 PM EDT Appointment [place] [address] Tacho Echavarrai MD 1 [place], [place] 1457117 03/10/2025 1:00 PM EDT Appointment [facility] [place] [address] Tacho Echavarria MD [address] [place] [address] 04/29/2025 9:15 AM EDT Appointment [place] [address] Batool Celis MD [address] [place] [address] [place] [address] 05/19/2025 2:15 PM EST Office Visit [address] [address] Sin Tran MD [address] [place] [address] 08/12/2025 10:40 AM EST Appointment [facility] Women's Wellness [facility] [place] [address] Matt Ulrich MD [address] [place] [address] documented as of this encounter Goals Goal [...] documented as of this encounter Care Teams Bsw Relationship Specialty [place] [address] [place] [address] PCP - General 06/21/10 Arlyn Schmidt MD [address] [place], [place] [address] Consulting Physician Internal Medicine-Endocrinology, Diabetes & Metabolism 11/28/20 Tacho Echavarria MD 1 [place] [address] Internal Medicine-Medical Oncology 11/12/23 Matt Ulrich MD 1 [place] [address] Surgery-Surgical Oncology 12/04/23 Eze Brock Pastoral Care 12/13/23 Annette Walker MSW Powder Loader 05/13/24 Batool Celis MD 1 [facility] [place] [address] Radiation Oncologist Radiology-Radiation Oncology 06/08/24 documented as of this encounter
--- OUTSIDE RECORDS SUMMARY | 2025-03-01 15:50 | XMS_ITS | Encounter Summary ---
Author [place] [address] Care Team Providers Care Rubber Mill Tender Name Role Phone Chetna Cedeno MD Primary Care Provider [phone] Arlyn Schmidt MD Unavailable [phone] Tacho Echavarria MD Unavailable [phone] Matt Ulrich MD Unavailable [phone] Eze Brock Unavailable Annette Walker Unavailable [phone] Batool Celis MD Unavailable [phone] Reason for Visit * Reason Comments Pharmacy Migraine Medication Management Qulipta Encounter Details Date Type Department Care Team (Latest Contact Info) Description 01/28/2025 Specialty Pharmacy [facility] [address] [place] [address] Sheridan Arellano CPhT Pharmacy Migraine [...] from your doctor or pharmacy? Never 11/07/2023 [facility] Utilities Answer Date Recorded In the past 12 months has th e electric, gas, oil, or water [employer] threatened to shut off services in your [...] often do you attend chur ch or yazidi services? 1 to 4 times per year [...] Score 5 07/07/2024 [facility] of Occupat ional Health - Occupational Stress [...] in a fdc (including now)? No 11/07/2023 [facility] IP Transportation Answer [...] refills of Qulipta. Copay amount: $0 Sent Itineris message. Patient informed of copay. * Aaliyah [...] [address] [facility] [address] [place] [address] Samm Ledesma APRN [address] [address] [place] [address] 03/10/2025 12:30 PM EDT Appointment [place] [address] Tacho Echavarria MD [address] [place] [address] 03/10/2025 1:00 PM EDT Appointment Cancer Care Medical Oncology [place], [place] 201[address]17 Tacho Echavarria MD 1 [place], [place] [address]17 04/29/2025 9:15 AM EDT Appointment [place] [address] Batool Celis MD [address] [facility] [facility] CANCER CARE [place], [place] [address] 05/19/2025 2:15 PM EST Office Visit [address] [address] Sin Tran MD [address] [place] [address] 08/12/2025 10:40 AM EST Appointment [facility] Women's Wellness [facility] [place] [phone] Matt Ulrich MD [address] [place] [address] 254 [place] [address] documented as of this encounter Goals Goal [...] documented as of this encounter Care Teams Rubber Mill Tender Relationship Specialty [place] [address] [place] [address] PCP - General 06/21/10 Arlyn Schmidt MD [address] [place] [address] Consulting Physician Internal Medicine-Endocrinology, Diabetes & Metabolism 11/28/20 Tacho Echavarria MD 1 [place], [place] 0057817 Internal Medicine-Medical Oncology 11/12/23 Matt Ulrich MD 1 [place], [place] 547[address] Surgery-Surgical Oncology 12/04/23 Eze Brock Pastoral Care 12/13/23 Annette Walker MSW Airport Sales Agent 05/13/24 Batool Celis MD 1 [facility] [place] [address] Radiation Oncologist Radiology-Radiation Oncology 06/08/24 documented as of this encounter
--- OUTSIDE RECORDS SUMMARY | 2025-03-01 15:50 | XMS_ITS | Encounter Summary ---
Author Organization [place] [address] Care Team Providers Care Combat Control Manager Name Role Phone Chetna Cedeno MD Primary Care Provider [phone] Arlyn Schmidt MD Unavailable [phone] Tacho Echavarria MD Unavailable [phone] Matt Ulrich MD Unavailable [phone] Eze Brock Unavailable Annette Walker Unavailable [phone] Batool Celis MD Unavailable [phone] Reason for Visit * Reason Comments Pharmacy Oncology Management Pharmacy Reassessment abemaciclib (Verze nio) Encounter Details Date Type Department Care Team (Latest Contact Info) Description 12/25/2024 Specialty Pharmacy [facility] [address] [place] [address] Hilary Rivas, [facility] Pharmacy Oncology Management; Pharmacy Reassessment [...] doctor or pharmacy? Never 11/07/2023 [facility] Utilities Answer Date Recorded In the past [...] Date Recorded PHQ-2 Total Score 5 07/07/2024 [facility] of Occupat ional Health - [...] a skilled nursing (including now)? 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 [...] into the lungs daily. fluticasone propionate 1 [place] by Nasal route daily. Aerochamber MV 1 Each by [facility] [place].(Non-Drug; Combo Route) route as needed. lidocaine-prilocaine Apply [...] Roland RPH - 12/25/2024 10:18 AM EDT [facility] Per secure chat with provider. Will hold off on dose escalation at this time. Plan to re-evaluate in 1 month. documented in this encounter Plan of Treatment Upcoming Encounters Date Type Department Care Team (Late st Contact Info) Description 03/09/2025 12:45 PM EDT Procedure visit [facility] NEUROLOG[facility]ECT[facility] [address] [place] [address] Samm Ledesma, LEYLA [address] [place] [address] 03/10/2025 12:30 PM EDT Appointment [place] [address] Tacho Echavarria MD [address] [place] [address] 03/10/2025 1:00 PM EDT Appointment [facility] [place] [address] Tacho Echavarria MD [address] [place] [address] 04/29/2025 9:15 AM EDT Appointment [place] [address] Batool Celis MD [address] [place] [address] [place] [address] 05/19/2025 2:15 PM EST Office Visit [address] [place] [address] Sin Tran MD [address] [place] [address] 08/12/2025 10:40 AM EST Appointment [facility] Women's Wellness [facility] [place] [address] Matt Ulrich MD [address] [place] [address] documented as of this encounter Goals Goal [...] as of this encounter Care Teams Combat Control Manager Relationship Specialty [place] [address] [place] [address] PCP - General 06/21/10 Arlyn Schmidt MD [address] [place] [address] Consulting Physician Internal Medicine-Endocrinology, Diabetes & Metabolism 11/28/20 Tacho Echavarria MD [address] [place] [address] Internal Medicine-Medical Oncology 11/12/23 Matt Ulrich MD [address] [place] [address] Surgery-Surgical Oncology 12/04/23 Eze Brock Pastoral Care 12/13/23 Annette Walker, ARACELI Press Breaker 05/13/24 Batool Celis MD [address] [place] [address] [place] [address] Radiation Oncologist Radiology-Radiation Oncology 06/08/24 documented as of this encounter
--- OUTSIDE RECORDS SUMMARY | 2025-03-01 15:50 | XMS_ITS | Encounter Summary ---
Author [place] [address] Care Team Providers Care Weigher And Mixer Name Role Phone Chetna Cedeno MD Primary Care Provider [phone] Arlyn Schmidt MD Unavailable [phone] Tacho Echavarria MD Unavailable [phone] Matt Ulrich MD Unavailable [phone] Eze Brock Unavailable Annette Walker Unavailable [phone] Batool Celis MD Unavailable [phone] Encounter Details Date Type Department Care Team (Late st Contact Info) Description 01/18/2025 Telephone Cancer Care Medical Oncology [place], [place] [phone] Tacho Echavarria MD [address] [place] [address] [phone] Social History Tobacco Use Types Packs/Day Years [...] [facility] [place] of Occupat ional Health - Occupational Stress [...] any time in the past 12 m [facility], were you homeless or living in a fpc (including now)? No 11/07/2023 [facility] IP Transportation Answer D [...] her apartment. Letter created and sent through [employer] documented in this encounter Plan of Treatment Upcoming Encounters Date Type Department Care Team (Late st Contact Info) Description 03/09/2025 12:45 PM EDT Procedure visit [facility] [address] [facility] [address] [place] [address] Samm Ledesma APRN [address] [place] [address] 03/10/2025 12:30 PM EDT Appointment [place] [address] Tacho Echavarria MD [address] [place] [address] 8210217 03/10/2025 1:00 PM EDT Appointment [facility] Care Medical Oncology [place], [place] 3863717 Tacho Echavarria MD [address] [place] [address] [id number] 04/29/2025 9:15 AM EDT Appointment [facility] RAD ONC One [place], [place] [phone] Batool Celis MD [address] CANCER CARE [place], [place] [address] 05/19/2025 2:15 PM EST Office Visit [facility] [address] [place] [address] 1[address] [place] [address] Sin Tran MD [address] [place] [address] 08/12/2025 10:40 AM EST Appointment [facility] Women's Wellness [place] One [facility] [place] [id number] Matt Ulrich MD 20 [facility] [address] [place] [id number] documented as of this encounter Goals Goal [...] documented as of this encounter Care Teams Weigher And Mixer Relationship Specialty [place] [address] [place] [address] PCP - General 06/21/10 Arlyn Schmidt MD [address] [place], [place] 92[address] Consulting Physician Internal Medicine-Endocrinology, Diabetes & Metabolism 11/28/20 Tacho Echavarria MD 1 [place], [place] 2528217 Internal Medicine-Medical Oncology 11/12/23 Matt Ulrich MD 1 [place], [place] 9780217 Surgery-Surgical Oncology 12/04/23 Eze Brock Pastoral Care 12/13/23 Annette Walker MSW Specimen Boss 05/13/24 Batool Celis MD 1 [facility] CANCER [place], [place] 05[address]17 Radiation Oncologist Radiology-Radiation Oncology 06/08/24 documented as of this encounter
--- OUTSIDE RECORDS SUMMARY | 2025-03-01 15:51 | XMS_ITS | Encounter Summary ---
Author Organization [place] [address] Care Team Providers Care Treatment Technician Name Role Phone Kit Cedeno MD Primary Care Provider [phone] Arlyn Schmidt MD Unavailable [phone] Cheryl Nair RN Unavailable [phone] Tacho Echavarria MD Unavailable [phone] Matt Ulrich MD Unavailable [phone] Hilary Clemens RN Unavailable Unavaila Eze Caro Unavailable Shila Albrecht RN Unavailable Unavail able Cheyanne To RN Unavailable Unavailabl Rayna Wong RN Unavailable Unavailab Shilpa Olivarez RN Unavailable [phone] Tulio Duong RN Unavailable Unavailable Yaquelin Weaver RN Unavailable Unavailable Pam Wang RN Unavailable Unavailable Jazmín Nair RN Unavailable Unavailable Fidel Rainey RN Unavailable Unavailable Cheryl Nair RN Unavailable [phone] Ophelia Lala RN Unavailable Glo Lee RN Unavailable Unavailab Sanam Evans CHIEF TECHNICIAN Unavailable Unavailable Hilary Clemens RN Unavailable Unavaila Ruthy Clayton RN Unavailable Unavailable Rayna Partida RN Unavailable Unavailab Artur Nelson RN Unavailable Unavailable Annette Walker CHIEF TECHNICIAN Unavailable [phone] Emmie Crain RN Unavailable Unavailable Brigida Enriquez RN Unavailable Unavailable Fidel Rainey RN Unavailable Unavailable Batool Celis MD Unavailable [phone] Encounter Details Date Type Department Care Team (Late st Contact Info) Description 10/25/2023 Orders Only [facility] [address] [facility] [place] [address] Diane Ellis MD [address] [place] [address] Social History Tobacco Use Types [...] [facility] [address] [place] [address] Samm Ledesma PROFESSIONAL BASS FISHER [address] [place] [address] 03/10/2025 12:30 PM EDT Appointment [place] [address] Tacho Echavarria MD [address] [place] [address] 03/10/2025 1:00 PM EDT [facility]ment [facility] [place] [address] Tacho Echavarria MD [address] [place] [address] 04/29/2025 9:15 AM EDT Appointment [place] [address] Batool Celis MD 1 [facility] [place] [address] 05/19/2025 2:15 PM EST Office Visit [facility] [address] [place] [address] Sin Tran MD [facility] [place] [address] 08/12/2025 10:40 AM EST Appointment [facility] [place] [facility] [place] [id number] Matt Ulrich MD 20 [facility] [address] [place] [id number] documented as of this encounter Goals Goal [...] EDT) 10/25/2023 10:4 4 AM EDT Narrative [facility] - 11/06/2023 7:12 PM EDT Requesting Provider: KIT Womack Specimen = [id number] us Diane Ellis MD PATHOLOGY ORDERABLES Final Resul t [facility] [address] [facility] [address] [place] [id number] documented in this encounter Visit Diagnoses Not on filedocumented in this encounter Additional Health Concerns Infection Onset Date Last Indicated Resolved Time COVID-19 09/04/2024 09/04/2024 09/24/2024 10:1 2 PM EDT documented as of this encounter Care Teams Treatment Technician Relationship Specialty [place] [address] [place] [phone] PCP - General 06/21/10 Arlyn Schmidt MD [address] [place] [address] Consulting Physician Internal Medicine-Endocrinolog y, Diabetes & Metabolism 11/28/20 Cheryl Nair, RN Oncology Nurse Navigator 10/29/2302/05 Tacho Echavarria MD [address] [place] [address] Internal Medicine-Medical Oncology 11/12/23 Matt Ulrich MD [address] [place] [address] [phone] Surgery-Surgical Oncology 12/04/23 Hilary Clemens, RN Registered [...] Registered Nurse Infusion Therapy 02/20/24 02/20/24 Jazmín aNir, RN Registered Nurse Infusion Therapy 02/27/24 02/27/24 Fidel Rainey, RN Registered Nurse Infusion Therapy 03/05/24 03/05/24 Cheryl Nair RN Oncology Nurse Navigator 03/25/2412/13 Ophelia Lala, RN Registered Nurse Infusion Therapy 03/27/24 03/27/24 Glo Lee, RN Registered Nurse Infusion Therapy 04/03/24 04/03/24 Sanam Murray, [facility] Mailing Clerk 04/10/24 07/30/24 Hilary Clemens, RN Registered Nurse Infusion Therapy 04/21/24 04/21/24 Ruthy Walker RN Registered Nurse Infusion Therapy 04/24/24 04/24/24 Rayna Partida, RN Registered Nurse Infusion Clinic 05/01/24 05/01/24 Artur Roberts RN Registered Nurse Infusion Therapy 05/07/24 05/07/24 Annette Walker, CHIEF TECHNICIAN Mailing Clerk 05/13/24 Emmie Crain, RN Registered Nurse Infusion Therapy 05/14/24 05/14/24 Brigida Enriquez, RN Registered Nurse Infusion Clinic 05/21/24 05/21/24 Fidel Rainey, RN Registered Nurse Infusion Therapy 05/28/24 05/28/24 Batool Celis MD [address] [place] [address] [place] [address] Radiation Oncologist Radiology-Radiation Oncology 06/08/24 documented as of this encounter
--- OUTSIDE RECORDS SUMMARY | 2025-03-01 15:51 | XMS_ITS | Encounter Summary ---
Author Organization [place] [address] Care Team Providers Care Social Professionals Name Role Phone Chetna Cedeno MD Primary Care Provider [phone] Arlyn Schmidt MD Unavailable [phone] Tacho Ehcavarria MD Unavailable [phone] Matt Ulrich MD Unavailable [phone] Eze Brock Unavailable Annette Walker Unavailable [phone] Batool Celis MD Unavailable [phone] Reason for Visit * Reason Onset Date Comments Other 02/01/2025 Currently inpati ent at [facility] Encounter Details Date Type Department Care Team (Late st Contact Info) Description 02/01/2025 Telephone [facility] [place], [place] [phone] Tacho Echavarria MD [address] [place] [address] [phone] Other (Currently inpatient at [facility] ) Social History Tobacco Use [...] from your doctor or pharmacy? Never 11/07/2023 [facility] Utilities Answer Date Recorded In the [...] a assisted (including now)? No [facility]/07[facility] IP [...] to let know she was admitted to [facility] on Saturday and is still there.Has blood clot in lung and potassium was 2.5 Preferred call back number: [phone] documented in this encounter Plan of Treatment Upcoming Encounters Date Type Department Care Team (Late st Contact Info) Description 03/09/2025 12:45 PM EDT Procedure visit [facility] [address] [facility] [address] [place] [address] Samm Ledesma APRN [address] [facility] [address] [place] [address] 03/10/2025 12:30 PM EDT Appointment [facility] [place] [address] Tacho Echavarria MD 1 [place] [address] 03/10/2025 1:00 PM EDT Appointment [facility] [place], [place] [phone] Tacho Echavarria MD [address] [place] [address] [phone] 04/29/2025 9:15 AM EDT Appointment [facility] [place] [place] [address] Batool Celis MD [address] [facility] [address] [facility] [place], [place] [phone] 05/19/2025 2:15 PM EST Office Visit [facility] [address] [place] [address] [address] [place] [address] Sin Tran MD [address] [place] [address] 08/12/2025 10:40 AM EST Appoint[facility] [place] [address] Matt Ulrich MD [address] [place] [address] [address] [place] [address] documented as of this encounter Goals Goal [...] documented as of this encounter Care Teams Social Professionals Relationship Specialty [place] [address] [place] [id number] PCP - General 06/21/10 Arlyn Schmidt MD [address] [place], [place] [phone] Consulting Physician Internal Medicine-Endocrinology, Diabetes & Metabolism 11/28/20 Tacho Echavarria MD 1 [place], [place] [phone] Internal Medicine-Medical Oncology 11/12/23 Matt Ulrich MD 1 [place], [place] [phone] Surgery-Surgical Oncology 12/04/23 Eze Brock Pastoral Care 12/13/23 Annette Walker, ARACELI Bar Finish Operator 05/13/24 Batool Celis MD 1 [facility] [address] Radiation Oncologist Radiology-Radiation Oncology 06/08/24 documented as of this encounter
--- OUTSIDE RECORDS SUMMARY | 2025-03-01 15:51 | XMS_ITS | Clinical Summary ---
Author Organization SHAUNNA SANBLESSING OD Address [facility] [place] [address] Phone Care Team Providers Care Structural Test Engineer Name Role Phone Chetna Cedeno MD Primary Care Provider [phone] Arlyn Schmidt MD Unavailable [phone] Tacho Echavarria MD Unavailable [phone] Matt Ulrich MD Unavailable [phone] Eze Brock Unavailable Annette Walker RETAIL SALES LEAD Unavailable [phone] Batool Celis MD Unavailable [phone] Allergies Active Allergy Reactions Criticality Noted Date [...] (AEROCHAMBER MV) Mis Spacer 1 Each by [facility].(Non-Drug; Combo Route) route as needed. 1 Device [...] Active fluticasone propionate (FLONASE) 50 mcg/actuation Nasl Udall, Suspension 1 Udall by Nasal route daily. 1 Each 07/03/20 [...] Tablet 1 11/19/19 25 Active abemaciclib (VERZENIO) 100 mg Oral [...] migh t be different from the original. [facility] - Sin Tran MD Controlled Substance Protocol [...] or Functional capacity documented (EVERY VISIT)01/03/2022 Pharmacy: [address] [address] [facility] [phone] AIS POA: 02/10/2025 josh as expected #[id number] Josh 08-05-2018 adm Josh 08-14-18 adm UDS 08-08-18 adm Care gap audit completed by Medina White RN on 01/01/2022. 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 I doubt the patient has underlying Medina's disease. We will proceed with the work-up [...] organization. Date Type Department Care Team Description 02/26/2025 Specialty Pharmacy [facility] [address] [place], [place] [id number] Charlotte Martino [facility] Migraine Medication Management (Qulipta/Nurtec) 02/25/2025 Specialty Pharmacy [facility] [address], [place] [id number] Annette Renee [facility] Oncology Management (Abemaciclib) 02/15/2025 Telephone [facility] [place] [id number] Tacho Echavarria MD 02/12/2025 Telephone [facility] [place] [phone] Eze Rowland MD Follow-up (Updated form, loan deferment form ) 02/10/2025 10:30 AM EDT Office Visit [facility] [address] [address] Sin Tran MD Chronic pain syndrome (Primary Dx); Post laminectomy syndrome 02/10/2025 Patient Outreach [place] [address] Tacho Echavarria MD Oncology Nurse Navigation 02/10/2025 Orders Only [facility] [place] [phone] Shilpa Cline, RAUL 02/08/2025 Refill [facility] [place] [phone] Tacho Echavarria MD Medication Refill 02/05/2025 Telephone [facility] [place], [place] [id number] Tacho Echavarria MD Symptom Call (lightheaded / headache ) 02/05/2025 Telephone [place] [address] Narda Vickers, Clerical Staff Integrative Oncology Referral 02/05/2025 Telephone [facility] [address] Service [place] [address] Chetna Cedeno MD Other (BW) 02/04/2025 2:03 PM EDT - 02/04/2025 11:59 PM EDT Hospital Encounter [facility] [place] [address] Tacho Echavarria MD Invasive ductal carcinoma of breast, female, right (HCC) (Primary Dx); Chemotherapy follow-up examination; Encounter for monitoring aromatase inhibitor therapy; Vitamin D deficiency; Port-A-Cath in place; Reactive depression Discharge Disposition: Home or Self Care 02/04/2025 1:48 PM EDT - 02/04/2025 2:02 PM EDT Hospital Encounter [place] [address] Tacho Echavarria MD Invasive ductal carcinoma of breast, female, right (HCC) (Primary Dx) Discharge Disposition: Home or Self Care 02/04/2025 11:00 AM EDT - 02/04/2025 1:47 PM EDT Hospital Encounter [facility] [place] [facility] Tacho Echavarria MD Mosko, Mallory, PA-C Invasive ductal carcinoma of breast, female, right (HCC) (Primary Dx); Encounter for monitoring aromatase inhibitor therapy; Encounter for screening mammogram for breast cancer Discharge Disposition: Home or Self Care 02/04/2025 Social Work [facility] Cancer Care [facility] [place] [address] Annette Walker MSW 02/04/[address] [facility] [place] [address] Aliya Harden, Clerical Staff Appointment Needed 02/03/[address] [address] Sin Tran MD Other (Pain pump meds) 02/03/2025 Specialty Pharmacy [facility] [address] [place] [address] Anisa Lozoya, Tim Pharmacy Oncology Management (Abemaciclib) 02/02/2025 11:20 AM EDT Telemedicine [facility] [address] [place] [address] Samm Ledesma APRN Chronic migraine without aura, intractable, with status migrainosus (Primary Dx); Paresthesia; Invasive ductal carcinoma of breast, female, right (HCC); Pituitary lesion; Radicular syndrome of left leg Discharge Disposition: Home or Self Care 02/02/2025 Specialty Pharmacy [facility] [address] [place] [address] Kevin Chacon, PharmD Pharmacy Migraine Medication Management (Nurtec) 02/01/2025 Social Work [facility] Cancer Care [facility] [place] [address] Sonny Fleming, [facility] 02/01/2025 Telephone [facility] [place] [address] Tacho Echavarria MD Other (Currently inpatient at [facility] ) 01/29/2025 Telephone [facility] [place] [address] Tacho Echavarria MD Symptom Call (Diarrhea, body aches, vomiting) 01/29/2025 Social Work [facility] Cancer Care [facility] [place] [address] Sonny Fleming, [facility] 01/29/2025 Patient Outreach [place] [address] Shilpa Cline, hospital administrative assistant Nurse Navigation 01/28/2025 Orders Only [facility] [place] [address] Tacho Echavarria MD Invasive ductal carcinoma of breast, female, right (HCC) (Primary Dx) 01/28/2025 Telephone [facility] [place] [address] Tacho Echavarria MD Patient Question (question about test result ) 01/28/2025 Specialty Pharmacy [facility] [address] [place] [address] Sheridan Arellano, [facility] Migraine Medication Management (Qulipta) 01/27/2025 Results Follow-Up [facility] [address] [place] [address] Benito Snell, PharmD PHARMACOGENOMIC PANEL 01/21/2025 Orders Only [facility] [address] [place] [address] Osvaldo Johnson, Clerical Staff 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) (Primary Dx) 01/18/2025 Telephone [facility] [place] [phone] Tacho Echavarria MD 01/15/2025 1:30 PM EDT - 01/15/2025 11:59 PM EDT Hospital Encounter [facility] [place] [phone] Tacho Echavarria MD Argent, Lillian L, APRN Hot flashes related to aromatase inhibitor therapy (Primary Dx); Vitamin D deficiency Discharge Disposition: Home or Self Care 01/15/2025 1:15 PM EDT - 01/15/2025 1:29 PM EDT Hospital Encounter [place] [address] Tacho Echavarria MD Invasive ductal carcinoma of breast, female, right (HCC) (Primary Dx); Cold sweat; Lightheaded; Shakiness Discharge Disposition: Home or Self Care 01/15/2025 11:55 AM EDT - 01/15/2025 1:14 PM EDT Hospital Encounter [facility] Physical Therapy [address] [place] [address] Kylah Lawler, ALECIA Discharge Disposition: Home or Self Care 01/15/2025 Refill [facility] [address] [address] [place] [phone] Chetna Cedeno MD Medication Refill 01/15/2025 Refill [facility] [address] [place] [address] Samm Ledesma APRN Medication Refill 01/15/2025 Refill [facility] [place] [address] Tacho Echavarria MD Medication Refill 01/15/2025 Plan of Care Documentation [facility] Physical Therapy [address] [place] [id number] 01/15/2025 Plan of Care Documentation [facility] Physical Therapy [address] [place] [address] 01/15/2025 Telephone [facility] [place] [phone] Tacho Echavarria MD Symptom Call (shakiness, light headed, cold chills, and breaking out in sweats ) 01/15/2025 Specialty Pharmacy [facility] [address] [place] [phone] Annamarie Mark [facility] Pharmacy Migraine Medication Management (Ubrelvy) 01/14/2025 Refill [facility] [place] [address] Tacho Echavarria MD Medication Refill 01/13/2025 2:56 PM EDT - 01/13/2025 11:59 PM EDT Hospital Encounter [facility] Physical Therapy [address] [place] [address] Shaunna Workman, ALECIA Discharge Disposition: Home or Self Care 01/13/2025 Plan of Care Documentation [facility] Physical Therapy [address] [place] [id number] 01/11/2025 Orders Only [facility] [place] [address] Tacho Echavarria MD 01/07/2025 Specialty Pharmacy [facility] [address] [place] [address] OAnisa Bergman CPhT Pharmacy Oncology Management (Abemaciclib) 01/06/2025 1:14 PM EDT - 01/06/2025 11:59 PM EDT Hospital Encounter [place] [address] Tacho Echavarria MD Invasive ductal [...] EDT Hospital Encounter [place] [address] Tacho Echavarria MD Invasive ductal carcinoma of breast, female, right (HCC) (Primary Dx) Discharge Disposition: Home or Self Care 01/01/2025 Patient Outreach [facility] [address] [place] [address] Samm Ledesma APRN Botox Injection (~03/02/2025 ) 12/31/2024 Specialty Pharmacy [facility] [address] [place] [address] Annamarie Mark [facility] Migraine Medication Management (Qulipta) 12/30/2024 Social Work [facility] [place] [address] Sonny Fleming, RETAIL SALES LEAD 12/29/2024 Social Work [facility] [place] [address] Annette Walker, RETAIL SALES LEAD 12/29/2024 Orders Only [facility] [address] [place] [address] VolpenheinBlake, RPH Restless leg syndrome; Essential hypertension, benign 12/29/2024 Refill [facility] [address] [address] Munir Hilton MD Medication Refill 12/29/[address]24 [place] [facility] [address] Service [place] [address] Chetna Cedeno MD Medication Refill 12/29/2024 Telephone [facility] [place] [address] Tacho Echavarria MD 12/28/2024 Orders Only [facility] [place] [address] Tacho Echavarria MD 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) (Primary Dx) 12/25/2024 Specialty Pharmacy [facility] [address] [place] [address] Hilary Rivas [facility] Pharmacy Oncology Management; Pharmacy Reassessment (abemaciclib (Verzenio)) 12/25/2024 Telephone [facility] Women's Wellness [facility] [place] [phone] Jasmin Porter RN 12/23/2024 Specialty Pharmacy [facility] [address] [place] [address] Anisa Lozoya pilot captain Pharmacy Migraine Medication Management (Qulipta pa renewal) 12/23/2024 Telephone [facility] [place] [address] Tacho Echavarria MD 12/23/2024 Telephone [facility] [address] [place] [address] Tacho Echavarria MD Follow-up 12/14/2024 11:09 AM EDT - 12/14/2024 11:59 PM EDT Hospital Encounter [facility] Physical Therapy [address] [place] [address] Kylah Lawler, PT Discharge Disposition: Home or Self Care 12/11/2024 Telephone [facility] Physical Therapy [address] [place] [address] Romana Bowman PTA Cancelled Appointment (Car in shop will not get done till 5 ) 12/10/2024 2:46 PM EDT - 12/10/2024 11:59 PM EDT Hospital Encounter [facility] [place] [address] Tacho Echavarria MD 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) (Primary Dx); Chemotherapy-induced nausea; Anxiety about treatment; Acquired lymphedema; Encounter for monitoring aromatase inhibitor therapy Discharge Disposition: Home or Self Care 12/10/2024 2:30 PM EDT - 12/10/2024 2:45 PM EDT Hospital Encounter [place] [address] Tacho Echavarria MD Invasive ductal carcinoma of breast, female, right (HCC) (Primary Dx); 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) Discharge Disposition: Home or Self Care 12/10/2024 Specialty Pharmacy [facility] [address] [place] [phone] Batool Smith, [facility] Pharmacy Oncology Management (Verzenio 100mg) 12/10/2024 Social Work [facility] Cancer Care [facility] [place] [address] Annette Walker MSW 12/09/2024 Specialty Pharmacy [facility] [address] [place] [phone] Annamarie Mark, [facility] Pharmacy Migraine Medication Management (Qulipta) 12/08/2024 2:35 PM EDT Procedure visit [facility] [address] [place] [address] Samm Ledesma APRN Chronic migraine without aura, intractable, with status migrainosus (Primary Dx) Discharge Disposition: Home or Self Care 12/08/2024 7:59 AM EDT - 12/08/2024 11:59 PM EDT Hospital Encounter [facility] Physical Therapy [address] [place] [address] Shaunna Workman, PT Discharge Disposition: Home or Self Care 12/08/2024 Specialty Pharmacy [facility] [address] [place] [address] Ras Thomas [facility] Pharmacy Migraine Medication Management (Ubrelvy) 12/07/2024 Results Follow-Up [facility] [address] [place] [address] King Oliva MD PATHOLOGY TISSUE REQUEST 12/04/2024 Social Work [facility] [place] [address] Aaron Annette, [facility] 12/04/2024 Travel 12/03/2024 9:00 AM EDT - 12/03/2024 11:59 PM EDT Hospital Encounter [facility] Physical Therapy [place] [address] [place] [address] Shaunna Workman, PT Discharge Disposition: Home or Self Care 12/03/2024 8:00 AM EDT - 12/03/2024 8:59 AM EDT Hospital Encounter [facility] Physical Therapy [place] [address] [place] [address] Romana Bowman, CVIR TECH Discharge Disposition: Home or Self Care 12/03/2024 [facility] Work [facility] [place] [address] [place], Rad[place], [facility] 12/02/2024 9:36 AM EDT - 12/02/2024 11:59 PM EDT Hospital Encounter [facility] Physical Therapy [address] [place] [address] Shaunna Workman, PT Discharge Disposition: Home or Self Care 12/02/2024 Orders Only [facility] [place] [phone] Tacho Echavarria MD 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) (Primary Dx) 12/01/2024 10:51 AM EDT Anesthesia Event [facility] [address] [place] [address] Aliya Friedman MD Record, Batool Marcus, CAN LABELER 12/01/2024 9:22 AM EDT - 12/01/2024 11:59 PM EDT Hospital Encounter [facility] [address] [place] [address] [place] MD Judge, Lisa M, MD O N eal, Christine M, CRNA Nausea and vomiting, unspecified vomiting type; Gastroesophageal reflux disease without esophagitis Discharge Disposition: Home or Self Care 12/01/2024 Refill [facility] [place] [address] Tacho Echavarria MD Medication Refill 12/01/2024 Specialty Pharmacy [facility] [address] [place] [phone] Annette Renee, [facility] Pharmacy Oncology Management (Abemaciclib) 11/30/2024 Nurse Triage [facility] [address] [place] [address] Sandy Gonzalez, RAUL from Last 3 Months Immunizations Immunization Administration Dates Next Due Influenza High Dose 06/25/2024, 4(Deferred: Other - patient is getting vaccine at [facility]) Influenza Vaccine Quadrivalent PF 03/27/2023,01/2015 Influenza Vaccine, [...] Surgeon: Stone Cronin MD; Location: [facility] ENDOSCOPY; Service: Endoscopy GASTRIC BYPASS SURGERY 05/01/2017 Abdomen/N/A LAPAROSCOPIC SLEEVE GASTRECTOMY ; Surgeon: Marcus Perez MD; Location: [facility] MAIN OR; Service: General IR 2 [...] STIMULATOR IMPLANT; Surgeon: Munir Hilton MD; Location: [facility] MAIN OR; Service: Pain Management Medical devices from this surgery are in the Medical Devices section. SPINE SURGERY 01/04/2021 N/A PAIN PUMP PERMANENT IMPLANT; Surgeon: Munir Hilton MD; Location: [facility] MAIN OR; Service: Pain Management Medical devices from this surgery are in the Medical Devices section. IR FLUOROSCOPY GUIDED NEEDLE PLACEMENT 01/17/2021 IR FLUOROSCOPY GUIDED NEEDLE PLACEMENT 01/17/2021 [facility]INE CTR IMAGING IR GUIDED INJECT TRANSFORAM EPIDUR LUMB OR SACRAL SINGLE LVL 08/03/2022 IR GUIDED INJECT TRANSFORAMINAL EPIDUR LUMB OR SACRAL SINGLE LVL 08/03/2022 Sin Tran MD [facility] CTR IMAGING BREAST BIOPSY 10/25/2023 Right 5:00 and 6:00 IR PORT PLACEMENT EQUAL OR > 5 YEARS 11/29/2023 IR PORT PLACEMENT EQUAL OR > 5 YEARS 11/29/2023 Joselito Goodwin MD [facility] IR MASTECTOMY 07/06/2024 Right Right modified radical mastectomy; Surgeon: Matt Ulrich MD; Location: [facility] MAIN OR; Service: General Medical History [...] from your doctor or pharmacy? Never 11/07/2023 [employer] Answer Date Recorded In the past 12 months has [employer], oil, or water [email or web address] threatened to shut off services in your [...] [facility] - Occupational Stress Questionnaire Answer [...] a nursing home (including now)? No 11/07/2023 [facility] [...] EDT Procedure visit [facility] [address] [place] [address] Samm Ledesma, CAN LABELER [address] [place] [address] 03/10/2025 12:30 PM EDT Appointment [facility] [place] [phone] Tacho Echavarria MD [address] [place] [id number] 03/10/2025 1:00 PM EDT Appointment [facility] [place] [address] Tacho Echavarria MD [address] [place] [address] 04/29/2025 9:15 AM EDT Appointment [facility] [address] Batool Celis MD [address] [place] [address] [place] [address] 05/19/2025 2:15 PM EST Office Visit [facility] [place] [address] [facility] [address] [place] [address] Sin Tran MD [address] [facility] [place] [address] 08/12/2025 10:40 AM EST Appointment [facility] Women's Wellness [place] [facility] [place] [address] Matt Ulrich MD [address] [place] [address] [address] [place] [address] Health Maintenance Due Date Last Done Comments [...] PM EDT) No Chetna Cedeno MD Breast [facility] Breast Health On track(2024 11:27 AM EDT) No Jasmin Porter, RAUL Note: Patient acknowledges understanding of new diagnosis, plan of care, available resources and how to contact Nurse Navigator with any future questions or concerns. Breast [facility] Breast [facility] Not on track(2024 11:27 AM EDT) No Jasmin Porter, RAUL Note: Patient will be compliant with monthly SBE and is aware of who to contact for any unusual or concerning findings. Breast [facility] Breast Health On track(2024 11:27 AM EDT) No Demi Garibay, RAUL Note: Patient will be compliant with taking Aromatase Inhibitor daily and understands who to contact to discuss any side effects or complications. Maintain a healthy diet, exercise regularly and maintain an ideal body weight General No Sanam Julio MA Medical Devices Implanted Type Area Product Development Device Identifier Shelf Expiration Date Model / Serial / Lot Kit Acc .133in Injex Didi Baso4 Biwing Flxb Rem Tl Preld - [id number] Implanted:Qty: 1 on 02/24/2020 by Munir Hilton MD at [facility] N/A: Back [employer]:NEURO 10/28/2023 [id number] / / [id number] Neurostimulator Rechar Adapt-Stim Sure Scan Intellis - [id number] Implanted:Qty: 1 on 02/24/2020 by Munir Hilton MD at [facility] N/A: Back [employer]:NEURO 12/19/2020 [id number] / [id number] / Kit Lead Percutaneous Mri Surescan Vectris 1x8 60cm - [id number] Implanted:Qty: 1 on 02/24/2020 by Munir Hilton MD at [facility] N/A: Back [employer]:NEURO 09/09/2023 [id number] / / [id number] Kit Lead Percutaneous Mri Surescan Vectris 1x8 60cm - [id number] Implanted:Qty: 1 on 02/24/2020 by Munir Hilton MD at [facility] N/A: Back [employer]:NEURO 10/08/2023 [id number] / / [id number] Device Suturing Mechanical Fixate Tissue Band - [id number] Implanted:Qty: 1 on 02/24/2020 by Munir Hilton MD at [facility] N/A: Back [employer]:NEUROMODULA TION 02/03/2024- / / [id number] Device Suturing Mechanical Fixate Tissue Band - [id number] Implanted:Qty: 1 on 02/24/2020 by Munir Hilton MD at [facility] N/A: Back [employer]:NEUROMODULA TION 02/03/2024 FB-- / / [id number] Envelope Absorbable Tyrx Polyarylate Medium 2.7in X 2.5in - [id number] Implanted:Qty: 1 on 02/24/2020 by Munir Hilton MD at [facility] N/A: Back [employer]:NEURO 12/03/2020 [id number] / / [id number] Device Sut Fixate Anchr Ld Tiss Bnd [id number] - [id number] Implanted:Qty: 1 on 01/04/2021 by Munir Hilton MD at [facility] N/A: Back [employer]:NEUROMODULA TION [id number] 10/25/2024 FB- / / [id number] Cath It 1-Pc 114cm 86cm Didi 4-Lyr Sut-Ls Jailer/Training Officer Conn Lng Spin - [id number] Implanted:Qty: 1 on 01/04/2021 by Munir Hilton MD at [facility] N/A: Back [employer]:NEURO 12/10/2022 [id number] / / [id number] Pump It 2.5mm [id number] Flxb Synchromed Ii Rsvr Bk - [id number] Implanted:Qty: 1 on 01/04/2021 by Munir Hilton MD at [facility] N/A: Back [employer]:NEURO 01/02/2022 [id number] / [id number] H / Port Infs 8fr [place] 1.6x2.6mm Xcela Pwr Inj Lpro Ti Pu-11/29/2023 Implanted:Qty: 1 on 11/29/2023 by Joselito Goodwin MD [facility] [id number] / / [id number] Procedures Procedure Name Priority Date/Time Associated Diagnosis [...] AIRWAY PLACEMENT Routine 025 10:56 AM EDT MM MAMMO DIGITAL STEPHANE DIAGN RIGHT Routine 01/27/2024 11:20 AM EDT Invasive ductal carcinoma of breast, female, right (HCC) [facility] COLONOSCOPY Routine 07/12/2015 2:30 PM EST from Last 3 Months or Most Recently Relevant to Health Maintenance Results * VITAMIN B12/ FOLIC ACID (02/04/2025 2:03 PM EDT) Only the most recent of2 resultswithin the time period is included. Pathologist [facility] Vitamin B12 271 232 - 1,245 pg/mL 02/04/2025 4:31 PM EDT [facility] [employer] Folate 6.16 >=4.80 ng/mL 02/04/2025 4:31 PM EDT [facility] [employer] Blood VENOUS BLOOD / Unknown Venipuncture / Unknown 02/04/2025 2:03 PM EDT 02/04/2025 2:03 PM EDT Narrative PREFERRED [employer] - 02/04/2025 4:31 PM EDT Ingestion of haroon doses of biotin (>5 mg/day) taken within 8 hours of drawing blood sample can interfere with this immunoassay test. Tacho Echavarria MD CHEMISTRY ORDERABLES Final Result [facility] [employer] [address] , [address] [place] [id number] * (ABNORMAL) CBC WITH DIFF (02/04/2025 2:03 PM EDT) Only the most recent of4 resultswithin the time period is included. Pathologist [facility] WBC 8.1 3.7 - 10.3 x10(3)/mc L 02/04/2025 2:07 PM EDT [facility] [facility] RBC 2.95(L) 3.90 - 5.20 x10(6)/mc L 02/04/2025 2:07 PM EDT [facility] Hgb 9.4(L) 11.2 - 15.7 g/dL 02/04/2025 2:07 PM EDT [facility] Hct 28.1(L) 34.0 - 45.0 % 02/04/2025 2:07 PM EDT [facility] MCV 95.3 80.0 - 100.0 fL 02/04/2025 2:07 PM EDT [facility] MCH 31.9 26.0 - 34.0 pg 02/04/2025 2:07 PM EDT [facility] MCHC 33.5 30.7 - 35.5 g/dL 02/04/2025 2:07 PM EDT [facility] RDW 15.0(H) <=14.9 % 02/04/2025 2:07 PM EDT [facility] Platelet 163 155 - 369 x10(3)/mc L 02/04/2025 2:07 PM EDT [facility] MPV 8.8 8.8 - 12.5 fL 02/04/2025 2:07 PM EDT [facility] Neut # Prelim 5.6 1.6 - [...] PM EDT [facility] [place] Percent 5.7 % 02/04/2025 2:07 PM EDT [facility] Eos Percent 2.1 % 02/04/2025 2:07 PM EDT [facility] Baso Percent 0.2 % 02/04/2025 2:07 PM EDT [facility] Neut # 5.6 1.6 - 6.1 x10(3)/mc L 02/04/2025 2:07 PM T [facility] Comment:Neutrophils equals s egs plus bands IMMGRAN# 0.0 0.0 - 0.1 x10(3)/mc L 02/04/2025 2:07 PM EDT [facility] Comment:Automated count of m etamyelocytes, myelocytes and promyelocytes. An absolute IG <0.1 is reported as 0.0. Lymph # 1.9 1.2 - 3.9 x10(3)/mc L 02/04/2025 2:07 PM EDT [facility] [place] # 0.5 0.3 - 0.9 x10(3)/mc L [...] HEMATOLOGY ORDERABLES Final Result Performing Organization Address City/[facility] [place] [address] * IRON+TIBC (02/04/2025 2:02 PM EDT) Only the most recent of2 resultswithin the time period is included. Iron 82 30 - 160 mcg/dL 02/04/2025 2:59 PM EDT [facility] Transferrin 279 200 - 360 mg/dL 02/04/2025 2:59 PM EDT [facility] Transferrin Saturation 21 20 - 50 % 02/04/2025 2:59 PM EDT [facility] TIBC 391 250 - 400 mcg/dL 02/04/2025 2:59 PM EDT [facility] Blood VENOUS BLOOD / Unknown Venipuncture / Unknown 02/04/2025 2:02 PM EDT 02/04/2025 2:02 PM EDT us Tacho Echavarria MD CHEMISTRY ORDERABLES Final Result Performing Organization Address City/[facility]/ZIP Co de Phone Number [facility] [address] [facility] [place] [address] [facility] [address] [place] [address] * (ABNORMAL) COMPREHENSIVE METABOLIC PANEL (02/04/2025 2:02 [...] recommended by the National Kidney Foundation - [place] [employer] of Nephrology Task Force. Blood VENOUS BLOOD / Unknown Venipuncture / Unknown 02/04/2025 2:02 PM EDT 02/04/2025 2:02 PM EDT us Tacho Echavarria MD CHEMISTRY ORDERABLES Final Result Performing Organization Address [facility] [place] [address] * MISCELLANEOUS LAB (01/06/2025 1:13 PM EDT) Only the most recent of2 resultswithin the time period is included. [facility] MISC COMMENT Tiago 01/07/2025 7:35 AM EDT [facility] Blood VENOUS STRUCTURE / Unknown Port / Unknown 01/06/2025 1:13 PM EDT 01/07/2025 7:31 AM EDT us Tacho Echavarria MD HEMATOLOGY ORDERABLES Final Result Performing Organization Address City/[facility]/ZIP Co de Phone Number [address] [address] * PHARMACOGENOMIC PANEL (01/06/2025) [facility] Pharmacogenomic Lab Comments See Comment CLARA Comment:Hemizygous males and homozygous females are reported as HTR2C CC. Pharmacogenomic Lab Method See Comment CLARA Comment: This test was developed, and its performance characteristics determined by [employer], a clinical laboratory located at [address] [place] [address]. These tests have not been cleared or approved by the U.S. Food and Drug Administration. The FDA does not require this test to go through premarket FDA review. [facility] is certified under CLIA-88 and accredited by the College of [place] [employer] as qualified to perform high-complexity testing. This test is approved for clinical use by the [facility] Department of [facility]. This test should not be regarded as investigational or for research. *Genomic DNA was analyzed by PCR using Viroblock TaqMan and/or SokoQ probe-based methods to interrogate the variant locations [...] are associated with more than one haplotype, Clara infers and reports the most likely diplotype [...] [facility] through the website or by calling [phone]. Blood 01/06/2025 01/22/2025 Narrative CLARA - 01/27/2025 This result has genomic variants that were not included in this document. us Aury Delgado MD MARTINGRAEME - ORDERABLES Final Result [facility]ARA [address] [facility] [address] [phone] * ESOPHAGOGASTRODUODENOSCOPY (EGD) (12/01/2024 11:06 AM EDT) [...] King Oliva MD Performing Provider Shaylee curtis, PROCESS SPECIALIST PROCESS SPECIALIST Viv Martinez RN Personal Development Educator Madelyn Sidhu RN Endoscopy Nurse Aliya Friedman [...] AM EDT) CASE REPORT Surgical Pathology Case: [id number] Authorizing Provider: King Oliva MD Collected: 12/01/2024 1059 Ordering Location: [facility] Received: 12/01/2024 1237 Pathologist: Estefany Spencer MD Specimens: A) - Small Intestine, Duodenum, duodenal biopsies via forceps B) - Gastric, gastric biopsies via forceps C) - Gastroesophageal Junction, gastroesophageal junction biopsies via forceps 12/03/2024 10:48 AM EDT [facility] FINAL DIAGNOSIS A. Duodenal biopsies via forceps: Small bowel mucosa with no significant diagnostic abnormalities. Negative for celiac disease. B. Gastric, biopsies via forceps: Mild chronic inactive gastritis. Helicobacter microorganisms are not identified. C. Gastroesophageal junction, biopsies via forceps: Predominantly inflamed gastric cardia type mucosa with reactive changes. Scant esophageal squamous epithelium. Negative for intestinal metaplasia and dysplasia. 12/03/2024 10:48 AM EDT [facility] at 1048 EDT GROSS DESCRIPTION A. Received in formalin, in a container labeled with the patient's name, hospital number, and duodenal biopsies via forceps , are seven sahu soft tissue fragments, 0.2-0.5 cm in greatest dimension. The fragments are entirely submitted in A1. Saima George MS, PA ([facility]) 12/01/2024 B. Received in formalin, in a container labeled with the patient's name, hospital number, and gastric biopsies via forceps , are six sahu soft tissue fragments, 0.3-1.1 cm in greatest dimension. The fragments are entirely submitted in B1. Saima George MS, PA ([facility]) 12/01/2024 C. Received in formalin, in a container labeled with the patient's name, hospital number, and gastroesophageal junction biopsies via forceps , are two sahu soft tissue fragments, both 0.4 cm in greatest dimension. The fragments are entirely submitted in C1. Saima George MS, PA ([facility]) 12/01/2024 12/03/2024 10:48 AM EDT [facility] MICROSCOPIC DESCRIPTION The microscopic examination may have been rendered in whole, or in part, by analyzing high-resolution digital images (whole slide images) on the MolecuLight Digital Pathology platform validated at [facility]. 12/03/2024 10:48 AM EDT [facility] EMBEDDED IMAGES 12/03/2024 10:48 AM T [facility] Tissue DUODENAL STRUCTURE / Unknown 12/01/2024 10:59 AM EDT 12/01/2024 12:37 PM EDT Tissue specimen (specimen) STOMACH STRUCTURE / Unknown 12/01/2024 11:01 AM EDT 12/01/2024 12:37 PM EDT Tissue specimen (specimen) CARDIOESOPHAGEAL JUNCTION STRUCTURE / Unknown 12/01/2024 11:02 AM EDT 12/01/2024 12:37 PM EDT us King Oliva MD PATHOLOGY ORDERABLES Final Result Performing Organization Address City/[facility]/ZIP Co de Phone Number [facility] [address] [place] [address] [facility] [address] [place] [address] * INTRAOP AIRWAY PLACEMENT (12/01/2024 10:56 AM EDT) Narrative [facility] - 12/01/2024 10:56 AM EDT O Shaylee Galarza CRNA 12/01/2024 10:56 AM Intraop Airway Placement: Date/Time: 12/01/2024 10:56 AM Induction type: IV Airway type: Nasal cannula salter Placement verified: End tidal CO2 us Aliya Friedman MD VA ANESTHESIA Final Result Performing Organization Address [facility] de Phone Number [facility] [address] [place] [address] * MM MAMMO DIGITAL STEPHANE DIAGN RIGHT (01/27/2024 11:20 AM EDT) Anatomical Region Laterality Modality Breast Right Mammography 01/27/2024 12:5 7 PM EDT Impressions 01/27/2024 12:57 PM EDT Incomplete-need additional imaging evaluation ([id number]-1) ~ RECOMMENDATION: Ultrasound of the right breast. [...] the next mammogram, in accordance with the [place] [employer] Rad[employer] and the Society of [...] sinceprior. ~ IMPRESSION: Incomplete-need additional imaging evaluation ([id number]-9) ~ RECOMMENDATION: Ultrasound of the right breast. [...] the next mammogram, in accordance with the [place] [employer] and the Society of Breast Imaging recommendations. Jeanette Smith APRN IMG MAMMOGRAPHY ORDERABLES Final Result * GMED COLONOSCOPY (07/12/2015 2:30 PM EST) 07/12/2015 2:30 PM EST Impressions [facility] - 07/12/2015 3:30 PM EST Normal [...] MD GI PROCEDURE ORDERABLES Doris mcmahon Result [facility] [address] [place] [address] from Last 3 Months or Most Recently Relevant to Health Maintenance Insurance MDR [place] [id number] MDR [facility] [id number] MDR Advance Directives For more information, please contact: [phone] * Full Code (Latest Code Status on File) Date Activated Date Inactivated Comments 05/01/2017 2:57 PM 05/03/2017 5:30 PM Care Teams Structural Test Engineer Relationship Specialty [place] [address] [place] [address] PCP - General 06/21/10 Arlyn Schmidt MD [facility] [place] [address] Consulting Physician Internal Medicine-Endocrinology, Diabetes & Metabolism 11/28/20 Tacho Echavarria MD 1 [place] [address] Internal Medicine-Medical Oncology 11/12/23 Matt Ulrich MD 1 [place] [address] Surgery-Surgical Oncology 12/04/23 Eze Brock Pastoral Care 12/13/23 Annette Walker, ARACELI Senior Web Services Developer 05/13/24 Batool Celis MD [address] [place] [address] Radiation Oncologist Radiology-Radiation Oncology 06/08/24
--- OUTSIDE RECORDS SUMMARY | 2025-03-01 15:51 | XMS_ITS | Encounter Summary ---
Author Organization [place] [address] Care Team Providers Care Electric Milkers Installer Name Role Phone Chetna Cedeno MD Primary Care Provider [phone] Arlyn Schmidt MD Unavailable [phone] Tacho Echavarria MD Unavailable [phone] Matt Ulrich MD Unavailable [phone] Eze Brock Unavailable Annette Walker Unavailable [phone] Batool Celis MD Unavailable [phone] Reason for Visit * Reason Comments Pharmacy Oncology Management Abemaciclib Encounter Details Date Type Department Care Team (Latest Contact Info) Description 02/03/2025 Specialty Pharmacy [facility] [address] [place] [address] Anisa Lozoya CPhT Pharmacy Oncology [...] th e electric, gas, oil, or water [employer] threatened to shut off services in your [...] Date Recorded PHQ-2 Total Score 5 07/07/2024 [facility] [place] of Occupat ional Health - Occupational Stress [...] in a usp (including now)? No 11/07/2023 [facility] [...] she is being discharged tomorrow and will mixing picker tender all her meds. She is unsure of supply left. * Blake Antoine RPH - 02/03/2025 11:05 AM EDT [facility] - Care Plan and Refill Review Refill questions and refill history verified. Last assessment 12/25/24. No reassessment needed at this time. Blake Antoine PharmD Specialty Pharmacist documented in this encounter Plan of Treatment Upcoming Encounters Date Type Department Care Team (Late st Contact Info) Description 03/09/2025 12:45 PM EDT Procedure visit [facility] [address] [place] [address] Samm Ledesma, TELEGRAPHER AGENT [address] [place] [address] 03/10/2025 12:30 PM EDT Appointment [facility] [address] [place], [place] [id number] Tacho Echavarria MD 1 [place] [address] 03/10/2025 1:00 PM EDT [facility] [place] [address] Tacho Echavarria MD [address] [place] [address] 04/29/2025 9:15 AM EDT Appointment [facility] [place] [address] Batool Celis MD 1 [facility] [place] [address] 05/19/2025 2:15 PM EST Office Visit [address] [address] Sin Tran MD [address] [place] [address] 08/12/2025 10:40 AM EST Appointment [facility] Women's Wellness [facility] [address] Matt Ulrich MD [address] [place] [address] [address] [place] [address] documented as of this encounter Goals Goal [...] as of this encounter Care Teams Electric Milkers Installer Relationship Specialty [place] [address] [place] [id number] PCP - General 06/21/10 Arlyn Schmidt MD [address] [place] [address] Consulting Physician Internal Medicine-Endocrinology, Diabetes & Metabolism 11/28/20 Tacho Echavarria MD 1 [place] [address] Internal Medicine-Medical Oncology 11/12/23 Matt Ulrich MD 1 [place] [address] Surgery-Surgical Oncology 12/04/23 Eze Brock Pastoral Care 12/13/23 Annette Walker MSW Inflated Ball Molder 05/13/24 Batool Celis MD 1 [facility] [address] Radiation Oncologist Radiology-Radiation Oncology 06/08/24 documented as of this encounter
--- OUTSIDE RECORDS SUMMARY | 2025-03-01 15:51 | XMS_ITS | Encounter Summary ---
Author Organization [place] [address] Care Team Providers Care Patient Safety Attendant Name Role Phone Chetna Cedeno MD Primary Care Provider [phone] Arlyn Schmidt MD Unavailable [phone] Tacho Echavarria MD Unavailable Matt Ulrich MD Unavailable Eze Brock Unavailable Cheryl Nair RN Unavailable [phone] Sanam Murray STEEL FIXER Unavailable Unavailable Annette Walker STEEL FIXER Unavailable Batool Celis MD Unavailable [phone] Encounter Details Date Type Department Care Team (Late st Contact Info) Description 07/06/2024 Orders Only [facility] [address] [place] [address] Shilpa Tan MD [address] [place] [phone] Social History Tobacco Use Types Packs/Day Years [...] in a usp (including now)? No 11/07/2023 [facility] IP Transportation [...] 07/06/2024 4:32 PM Kayla Lee RN * Louisa Suicide Severity Rating Scale (Q shift for [...] 12:45 PM EDT Procedure visit [facility] [address] [place] [address] Samm Ledesma, ANTIQUE DEALER [address] [facility] [address] [place] [address] 03/10/2025 12:30 PM EDT Appointment [place] [address] Tacho Echavarria MD [address] [place] [address] 03/10/2025 1:00 PM EDT [facility]ment [facility] [place] [address] Tacho Echavarria MD [address] [place] [id number] 04/29/2025 9:15 AM EDT Appointment [facility] [place] [address] Batool Celis MD [address] [place] [address] [place] [address] 05/19/2025 2:15 PM EST Office Visit [facility] [address] [address] Sin Tran MD [address] [place] [address] 08/12/2025 10:40 AM EST Appointment [facility] [place] [address] Matt Ulrich MD [address] [place] [address] documented as of this encounter Goals Goal [...] any future questions or concerns. Breast [facility] Breast Health Not on track(2024 [...] EST) 07/06/2024 12:5 1 PM EST Narrative [facility] - 09/24/2024 2:57 PM EDT Requesting Provider: MATT Womack Specimen = [id number] us Shilpa Tan MD PATHOLOGY ORDERABLES Final R esult Performing Organization Address City/State/[facility] Co de Phone Number [facility] 1 [place] [address] documented in this encounter Visit Diagnoses Not on filedocumented in this encounter Additional Health Concerns Infection Onset Date Last Indicated Resolved Time COVID-19 09/04/2024 09/04/2024 09/24/2024 10:1 2 PM EDT Assessment Noted Time PHQ-9 Depression Total Score: 12 024 12:00 PM EDT documented as of this encounter Care Teams Patient Safety Attendant Relationship Specialty [place] [address] [place] [address] PCP - General 06/21/10 Arlyn Schmidt MD [address] [place] [address] Consulting Physician Internal Medicine-Endocrinology , Diabetes & Metabolism 11/28/20 Tacho Echavarria MD 1 [place] [address] Internal Medicine-Medical Oncology 11/12/23 Matt Ulrich MD 1 [place] [address] Surgery-Surgical Oncology 12/04/23 Eze Brock Pastoral Care 12/13/23 Cheryl Nair, RN Oncology Nurse Navigator 03/25/2412/13 Sanam Murary MSW Marine Oiler 04/10/24 07/30/24 Annette Walker MSW Marine Oiler 05/13/24 Batool Celis MD 1 [facility] [place] [address] Radiation Oncologist Radiology-Radiation Oncology 06/08/24 documented as of this encounter
--- OUTSIDE RECORDS SUMMARY | 2025-03-01 15:51 | XMS_ITS | Encounter Summary ---
Author Organization [place] [address] Care Team Providers Care Traveler Changer Name Role Phone Chetna Cedeno MD Primary Care Provider [phone] Arlyn Schmidt MD Unavailable [phone] Tacho Echavarria MD Unavailable [phone] Matt Ulrich MD Unavailable [phone] Eze Brock Unavailable Cheryl Nair RN Unavailable [phone] Annette Walker AUTOMOTIVE PROJECT ENGINEER Unavailable [phone] Batool Celis MD Unavailable [phone] Encounter Details Date Type Department Care Team (Late st Contact Info) Description 10/26/2024 Orders Only [facility] Physical Therapy [place] [address] [facility] [address] [place] [address] Shaunna Workman PT Social History [...] Score 5 07/07/2024 [employer] [employer] [facility] of Occupat ional Health - Occupational [...] in a residential (including now)? No [facility]/07[facility]2023 [facility] IP Transportation Answer D [...] of Assessment Author No 12/06/2022 2:08 PM BOEDT Macarena Marion CCMA * Does this person [...] [address] [facility] [address] [place] [address] Samm Ledesma, CREDIT SUPPORT COUNSELOR [address] [place], [place] [id number] 03/10/2025 12:30 PM EDT Appointment [place] [address] Tacho Echavarria MD [address] [place] [address] 03/10/2025 1:00 PM EDT Appointment [facility] [place], [place] [id number] Tacho Echavarria MD [address] [place] [address] 04/29/2025 9:15 AM EDT Appointment [place] [address] Batool Celis MD [address] [place] [address] [place] [address] 05/19/2025 2:15 PM EST Office Visit [facility] [address] [facility] [address] [place] [address] Sin Tran MD [facility] [place] [address] 08/12/2025 10:40 AM EST Appointment [facility] Women's Wellness [place] [facility] [place] [address] Matt Ulrich MD [address] [place] [address] documented as of this encounter [...] documented as of this encounter Care Teams Traveler Changer Relationship Specialty [place] [address] [place] [id number] PCP - General 06/21/10 Arlyn Schmidt MD [address] [place] [address] Consulting Physician Internal Medicine-Endocrinology , Diabetes & Metabolism 11/28/20 Tacho Echavarria MD 1 [place] [address] Internal Medicine-Medical Oncology 11/12/23 Matt Ulrich MD 1 [place] [address] Surgery-Surgical Oncology 12/04/23 Eze Brock Pastoral Care 12/13/23 Cheryl Nair, RN Oncology Nurse Navigator 03/25/2412/13 Annette Walker, AUTOMOTIVE PROJECT ENGINEER Mechanical Supervisor 05/13/24 Batool Celis MD 1 [facility] [place] [address] Radiation Oncologist Radiology-Radiation Oncology 06/08/24 documented as of this encounter
--- OUTSIDE RECORDS SUMMARY | 2025-03-01 15:51 | XMS_ITS | Encounter Summary ---
Author [place] [address] Care Team Providers Care Section Plotter Operator Name Role Phone Kit Cedeno MD Primary Care Provider [phone] Arlyn Schmidt MD Unavailable [phone] Cheryl Nair RN Unavailable [phone] Tacho Echavarria MD Unavailable [phone] Matt Ulrich MD Unavailable [phone] Hilary Clemens RN Unavailable Unavaila Eze Caro Unavailable Shila Albrecht RN Unavailable Unavail able Cheyanne To RN Unavailable Unavailabl Rayna Wong RN Unavailable Unavailab Shilpa Olivarez RN Unavailable [phone] Tulio Duong RN Unavailable Unavailable Yaquelin Weaver RN Unavailable Unavailable Pam Wang RN Unavailable Unavailable Jazmín Nair RN Unavailable Unavailable Fidel Rainey RN Unavailable Unavailable Cheryl Nair RN Unavailable [phone] Ophelia Lala RN Unavailable Glo Lee RN Unavailable Unavailab Sanam Evans INSULATION TECHNICIAN Unavailable Unavailable Hilary Clemens RN Unavailable Unavaila Ruthy Clayton RN Unavailable Unavailable Rayna Partida RN Unavailable Unavailab Artur Nelson RN Unavailable Unavailable Annette Walker INSULATION TECHNICIAN Unavailable [phone] Emmie Crain RN Unavailable Unavailable Brigida Enriquez RN Unavailable Unavailable Fidel Rainey RN Unavailable Unavailable Batool Celis MD Unavailable [phone] Encounter Details Date Type Department Care Team (Late st Contact Info) Description 10/25/2023 Orders Only [facility] [place] [address] Diane Ellis MD 1 [place] [address] Social History Tobacco Use Types [...] HECTOR [address] [place] [address] Samm Ledesma [employer] OFFICER [address] [place] [address] 03/10/2025 12:30 PM EDT Appointment [place] [address] Tacho Ehcavarria MD [address] [place] [address] 03/10/2025 1:00 PM EDT [facility]ment [facility] [place] [address] Tacho Echavarria MD [address] [place] [address] 04/29/2025 9:15 AM EDT Appointment [place] [address] Batool Celis MD 1 [facility] [place] [address] 05/19/2025 2:15 PM EST Office Visit [facility] [address] [place] [address] Sin Tran MD [facility] [place] [address] 08/12/2025 10:40 AM EST Appointment [facility] [place] [address] [facility] [place] [address] Matt Ulrich MD 20 [facility] 254 [place] [phone] documented as of this encounter Goals Goal [...] EDT) 10/25/2023 10:4 4 AM EDT Narrative [facility] - 11/01/2023 3:02 PM EDT Requesting Provider: KIT Womack Specimen = [id number] us Diane Ellis MD PATHOLOGY ORDERABLES Final Resul t [facility] [address] [facility] [address] [place] [id number] documented in this encounter Visit Diagnoses Not on filedocumented in this encounter Additional Health Concerns Infection Onset Date Last Indicated Resolved Time COVID-19 09/04/2024 09/04/2024 09/24/2024 10:1 2 PM EDT documented as of this encounter Care Teams Section Plotter Operator Relationship Specialty [place] [address] [place] [address] PCP - General 06/21/10 Arlyn Schmidt MD [address] [place], [place] [phone] Consulting Physician Internal Medicine-Endocrinolog y, Diabetes & Metabolism 11/28/20 Cheryl Nair, RN Oncology Nurse Navigator 10/29/2302/05 Tacho Echavarria MD [address] [place] [address] [phone] Internal Medicine-Medical Oncology 11/12/23 Matt Ulrich MD [address] [place] [address] [phone] Surgery-Surgical Oncology 12/04/23 Hilary Clemens, RN Registered Nurse Infusion Therapy 12/05/23 12/05/23 Eze Brock Pastoral Care 12/13/23 Shila Albrecht, RN Registered Nurse Infusion Therapy 12/19/23 12/19/23 Cheyanne To, RN Registered Nurse Infusion Therapy 01/16/24 01/16/24 Rayna Partida, RN Registered Nurse Infusion Clinic 01/23/24 01/23/24 Shilpa Cline, RAUL Oncology Nurse Navigator 02/04/2403/09 Tulio Duong, RAUL Registered Nurse Infusion Therapy 02/06/24 02/06/24 Yaquelin [...] Nurse Infusion Therapy 04/03/24 04/03/24 Sanam Murray, INSULATION TECHNICIAN Equipment Processor 04/10/24 07/30/24 Hilary Clemens, RN Registered Nurse Infusion Therapy 04/21/24 04/21/24 Ruthy Walker RN Registered Nurse Infusion Therapy 04/24/24 04/24/24 Rayna Partida, RN Registered Nurse Infusion Clinic 05/01/24 05/01/24 Artur Roberts RN Registered Nurse Infusion Therapy 05/07/24 05/07/24 Annette Walker, INSULATION TECHNICIAN Equipment Processor 05/13/24 Emmie Crain, RN Registered Nurse Infusion Therapy 05/14/24 05/14/24 Brigida Enriquez, RN Registered Nurse Infusion Clinic 05/21/24 05/21/24 Fidel Rainey, RN Registered Nurse Infusion Therapy 05/28/24 05/28/24 Batool Celis MD 1 [facility] [place] [address] Radiation Oncologist Radiology-Radiation Oncology 06/08/24 documented as of this encounter
--- OUTSIDE RECORDS SUMMARY | 2025-03-01 15:51 | XMS_ITS | Encounter Summary ---
Author Organization [place] [address] Care Team Providers Care Last Sawyer Name Role Phone Chetna Cedeno MD Primary Care Provider [phone] Arlyn Schmidt MD Unavailable [phone] Tacho Echavarria MD Unavailable [phone] Matt Ulrich MD Unavailable [phone] Eze Brock Unavailable Annette Walker PROTOTYPE FABRICATOR Unavailable [phone] Batool Celis MD Unavailable [phone] Reason for Visit * Reason Comments Pharmacy Oncology Management Abemaciclib Encounter Details Date Type Department Care Team (Latest Contact Info) Description 02/25/2025 Specialty Pharmacy [facility] [address] [place] [address] Annette Renee, payroll accountant Pharmacy Oncology Management (Abemaciclib) Social History Tobacco [...] from your doctor or pharmacy? Never 11/07/2023 [facility] Utilities Answer Date Recorded In the past 12 months has th e electric, gas, oil, or water [employer] threatened to shut off services in your [...] PHQ-2 Total Score 5 07/07/2024 [facility] [place] of Occupat ional Health - Occupational Stress [...] any time in the past 12 m [facility], were you homeless or living in a intermediate (including now)? No 11/07/2023 [facility] IP Transportation Answer D ate [...] Progress Notes * Annette Renee CPhT - 02/25/2025 10:28 AM EDT Specialty Pharmacy Refill Coordination Note Contacted [facility] today regarding refills of Abemaciclib. Copay amount: $0.00 Spoke with patient. Patient stated that she is no longer going to be seeing Dr Echavarria, she is now going to be seeing Dr. Rowan. Has biopsy schedule documented in this encounter Plan of Treatment Upcoming Encounters Date Type Department Care Team (Late st Contact Info) Description 03/09/2025 12:45 PM EDT Procedure visit [facility] [address] [facility] [address] [place] [address] Samm Ledesma, NUMERICAL CONTROL MACHINE MACHINIST [address] [facility] [address] V[address] [place] [address] 03/10/2025 12:30 PM EDT Appointment [facility] [place], [place] [phone] Tacho Echavarria MD [address] [place] [address] [phone] 03/10/2025 1:00 PM EDT Appointment [facility] [place], [place] 1795717 Tacho Echavarria MD [address] [place] [address] [phone] 04/29/2025 9:15 AM EDT Appointment [facility] RAD ONC [place], [place] [phone] Batool Celis MD 1 [facility] [address] [place] [address] 05/19/2025 2:15 PM EST Office Visit [facility] [address] [place] [place] [address] Sin Tran MD [address] [place], [place] [address] [address] 08/12/2025 10:40 AM EST Appointment [facility] Women's Wellness [facility] [place] [phone] Matt Ulrich MD 20 [facility] 254 [place] [address] documented as of this encounter Goals Goal [...] documented as of this encounter Care Teams Last Sawyer Relationship Specialty [place] [address] [place] [address] PCP - General 06/21/10 Arlyn Schmidt MD [address] [place] [address] Consulting Physician Internal Medicine-Endocrinology, Diabetes & Metabolism 11/28/20 Tacho Echavarria MD 1 [place], [place] [phone] Internal Medicine-Medical Oncology 11/12/23 Matt Ulrich MD 1 [place] [address] Surgery-Surgical Oncology 12/04/23 Eze Brock Pastoral Care 12/13/23 Annette Walker, ARACELI [employer] [place] 05/13/24 Batool Celis MD 1 [facility] [place] [address] Radiation Oncologist Radiology-Radiation Oncology 06/08/24 documented as of this encounter
--- OUTSIDE RECORDS SUMMARY | 2025-03-01 15:51 | XMS_ITS | Encounter Summary ---
Author Organization [place] [address] Care Team Providers Care Hospitalist Physician Name Role Phone Chetna Cedeno MD Primary Care Provider [phone] Leslie Cooley OUTSIDE MACHINIST SUPERVISOR Unavailable UnaBatool Talley BUS STEWARD Unavailable Unavailab Arlyn Disla MD Unavailable [phone] Cheryl Nair RN Unavailable [phone] Tacho Echavarria MD Unavailable [phone] Matt Ulrich MD Unavailable [phone] Hilary Clemens RN Unavailable Unavaila Eze Caro Unavailable Shila Albrecht RN Unavailable Unavail able Cheyanne To RN Unavailable UnavailRayna Johnson RN Unavailable Unavailab Shilpa Olivarez RN Unavailable [phone] Tulio Duong RN Unavailable Unavailable Yaquelin Weaver RN Unavailable Unavailable Pam Wang RN Unavailable Unavailable Jazmín Nair RN Unavailable Unavailable Fidel Rainey RN Unavailable Unavailable Cheryl Nair RN Unavailable [phone] Ophelia Lala RN Unavailable Glo Lee RN Unavailable Unavailab Sanam Evans HAND CLERICAL VERIFIER Unavailable Unavailable Hilary Clemens RN Unavailable Unavaila Ruthy Clayton RN Unavailable Unavailable Rayna Partida RN Unavailable Unavailab Artur Nelson RN Unavailable Unavailable Annette Walker HAND CLERICAL VERIFIER Unavailable [phone] Emmie Crain RN Unavailable Unavailable Brigida Enriquez RN Unavailable Unavailable Fidel Rainey RN Unavailable Unavailable Batool Celis MD Unavailable [phone] Encounter Details Date Type Department Care Team (Late st Contact Info) Description 07/12/2015 Orders Only [facility] G[facility] [address] ENTRANCE, 3RD [place] [address] Stone Cronin MD Social History Tobacco Use [...] [facility] [address] [place] [address] Samm Ledesma, SCRAP BREAKER [address] [facility] [address] [place] [address] 03/10/2025 12:30 PM EDT Appointment [facility] [place], [place] 1582117 Tacho Echavarria MD [address] [place] [address] [phone] 03/10/2025 1:00 PM EDT Appointment [facility] [place], [place] 1825517 Tacho Echavarria MD [address] [place] [address] [phone] 04/29/2025 9:15 AM EDT Appointment [facility] [place] [place] [address] Btaool Celis MD [address] [facility] [address] [facility] [place], [place] [phone] 05/19/2025 2:15 PM EST Office Visit [facility] [address] [place] [address] Sin Tran MD 4900 [place] [address] 08/12/2025 10:40 AM EST Appointment [facility] Women's Wellness [facility] [place] [address] Matt Ulrich MD 20 [facility] 254 [place] [phone] documented as of this encounter Procedures Procedure Name Priority Date/Time Associated Diagnosis Comments GMED COLONOSCOPY Routine 07/12/2015 2:30 PM EST documented in this encounter Results * ED COLONOSCOPY (07/12/2015 2:30 PM EST) 07/12/2015 2:30 PM EST Impressions [facility] - 07/12/2015 3:30 PM EST Normal [...] MD GI PROCEDURE ORDERABLES Doris mcmahon Result [facility] 1 [place] [address] documented in this encounter Visit Diagnoses Not [...] documented as of this encounter Care Teams Hospitalist Physician Relationship Specialty [place] [address] [place] [address] PCP - General 06/21/10 Leslie Cooley, OUTSIDE MACHINIST SUPERVISOR Neurology Tech 01/28/19 07/15/19 Batool Myers, BUS STEWARD Neurology Tech 02/13/19 07/15/19 Arlyn Schmidt MD [facility] [place] [address] Consulting Physician Internal Medicine-Endocrinolog y, Diabetes & Metabolism 11/28/20 Cheryl Nair, RN Oncology Nurse Navigator 10/29/2302/05 Tacho Echavarria MD 1 [place] [address] Internal Medicine-Medical Oncology 11/12/23 Matt Ulrich MD 1 [place] [address] Surgery-Surgical Oncology 12/04/23 Hilary Clemens, RN [...] Nurse Infusion Therapy 04/03/24 04/03/24 Sanam Murray, [facility] Neurology Tech 04/10/24 07/30/24 Hilary Clemens, RN Registered Nurse Infusion Therapy 04/21/24 04/21/24 Ruthy Walker RN Registered Nurse Infusion Therapy 04/24/24 04/24/24 Rayna Partida, RN Registered Nurse Infusion Clinic 05/01/24 05/01/24 Artur Roberts, RN Registered Nurse Infusion Therapy 05/07/24 05/07/24 Annette Walker, HAND CLERICAL VERIFIER Neurology Tech 05/13/24 Emmie Crain, RN Registered Nurse Infusion Therapy 05/14/24 05/14/24 Brigida Enriquez, RN Registered Nurse Infusion Clinic 05/21/24 05/21/24 Fidel Rainey, RN Registered Nurse Infusion Therapy 05/28/24 05/28/24 Batool Celis MD [address] [place] [address] [place] [address] Radiation Oncologist Radiology-Radiation Oncology 06/08/24 documented as of this encounter
--- OUTSIDE RECORDS SUMMARY | 2025-03-01 15:51 | XMS_ITS | Encounter Summary ---
Author Organization [place] [address] Care Team Providers Care Metal Mover Name Role Phone Chetna Cedeno MD Primary Care Provider [phone] Arlyn Schmidt MD Unavailable [phone] aTcho Echavarria MD Unavailable [phone] Matt Ulrich MD Unavailable [phone] Eze Brock Unavailable Annette Walker Unavailable [phone] Batool Celis MD Unavailable [phone] Reason for Visit * Reason Onset Date Comments Follow-up 02/12/2025 Updated form, lo an deferment form Encounter Details Date Type Department Care Team (Late st Contact Info) Description 02/12/2025 Telephone [facility] Oncology [place], [place] [phone] Eze Rowland MD [address] [place] [address] [phone] Follow-up (Updated form, loan deferment form ) [...] PHQ-2 Total Score 5 07/07/2024 [facility] of Occupat ional Health - Occupational Stress [...] in a detention (including now)? No 11/07/2023 [facility] IP [...] to fill out for loan deferment via [employer] message. documented in this encounter Plan of Treatment Upcoming Encounters Date Type Department Care Team (Late st Contact Info) Description 03/09/2025 12:45 PM EDT Procedure visit [facility] [address] [facility] [address] [place] [address] Samm Ledesma LOCKER ROOM MANAGER [address] [place] [address] 03/10/2025 12:30 PM EDT Appointment [place] [address] Tacho Echavarria MD [address] [place] [address] 03/10/2025 1:00 PM EDT Appointment [facility] Oncology [place], [place] [phone] Tacho Echavarria MD [address] [place] [address] 04/29/2025 9:15 AM EDT Appointment [facility] ONC [place] [phone] Batool Celis MD [address] [facility] [address] CANCER CARE CENTER [place] [phone] 05/19/2025 2:15 PM EST Office Visit [facility] [address] [place] [address] 1D [place] [address] Sin Tran MD [address] [place] [address] 08/12/2025 10:40 AM EST Appointment [facility] Women's Wellness [facility] [place] [address] Matt Ulrich MD 20 [facility] 254 [place] [address] documented as of this encounter Goals Goal [...] as of this encounter Care Teams Metal Mover Relationship Specialty [place] [address] [place] [address] PCP - General 06/21/10 Arlyn Schmidt MD [address] [place] [address] Consulting Physician Internal Medicine-Endocrinology, Diabetes & Metabolism 11/28/20 Tacho Echavarria MD 1 [place], [place] [phone] Internal Medicine-Medical Oncology 11/12/23 Matt Ulrich MD 1 [place] [address] Surgery-Surgical Oncology 12/04/23 Eze Brock Pastoral Care 12/13/23 Annette Walker MSW Tower Foreman 05/13/24 Batool Celis MD 1 [facility] [place] [address] Radiation Oncologist Radiology-Radiation Oncology 06/08/24 documented as of this encounter
--- OUTSIDE RECORDS SUMMARY | 2025-03-01 15:51 | XMS_ITS | Encounter Summary ---
Author Organization [place] [address] Care Team Providers Care Hangersmith Name Role Phone Chetna Cedeno MD Primary Care Provider [phone] Arlyn Schmidt MD Unavailable [phone] Tacho Echavarria MD Unavailable [phone] Matt Ulrich MD Unavailable [phone] Eze Brock Unavailable Annette Walker Unavailable [phone] Batool Celis MD Unavailable [phone] Reason for Visit * Reason Comments [facility] Encounter Details Date Type Department Care Team (Latest Contact Info) Description 02/02/2025 Specialty Pharmacy [facility] [address] [place] [address] Kevin Chacon PharmD Pharmacy Migraine Medication [facility] Social History Tobacco Use Types [...] th e electric, gas, oil, or water [employer] threatened to shut off services in your [...] Date Recorded PHQ-2 Total Score 5 07/07/2024 [facility] [place] of Occupat ional Health - Occupational Stress [...] a senior living (including now)? No 11/07/2023 [facility] IP Transportation Answer D ate Recorded [...] Chacon PharmD - 02/02/2025 1:39 PM EDT [facility] Prescription received for Nurtec (75mg). Prescription requires prior authorization. Will complete clinical review. Patient will not need IA if able to fill here (continuation of therapy). * Kevin Chacon PharmD - 02/02/2025 1:39 PM EDT [facility] - Migraine Clinical Review [facility] [...] into the lungs daily. fluticasone propionate 1 [place] by Nasal route daily. Aerochamber MV 1 [facility]Non-Drug; Combo Route) route as needed. ketorolac [...] Monson CPhT - 02/02/2025 1:39 PM EDT [facility] Prior Authorization Submitted [facility] [employer] insurance via [employer] ([place] [id number]). Will follow up on 02/04. * Annamaire Mark CPhT - 02/02/2025 1:39 PM EDT [facility] Prior Authorization Determination Received notice of PA approval for [facility] . PA approved from 02/02/2025 to 05/05/2025. Patient is able to fill at [facility]. Copay is $0. No answer, left voicemail to call [phone], option 4. Initial assessment not needed for medication. Medication is able to be delivered via [employer]. cell # has mailbox that isn't set up * Aailyah Decker CPhT - 02/02/2025 1:39 PM EDT [...] [facility] [address] [place] [address] Samm Ledesma APRN [address] [facility] [address] [place] [address] 03/10/2025 12:30 PM EDT Appointment [place] [address] Tacho Echavarria MD [address] [place] [address] 03/10/2025 1:00 PM EDT Appointment [facility] Medical Oncology [place], [place] [phone] Tacho Echavarria MD [address] [place] [address] 04/29/2025 9:15 AM EDT Appointment [place] [address] Batool Celis MD [address] [place] [address] [place] [address] 05/19/2025 2:15 PM EST Office Visit [facility] 4900 [facility] 401 [facility] 1D [place] [address] Sin Tran MD [facility] [place] [address] 08/12/2025 10:40 AM EST Appointment [facility] Women's Wellness [place] [address] [facility] [place] [address] Matt Ulrich MD [address] [place] [address] 254 [place] [address] documented as of this encounter [...] documented as of this encounter Care Teams Hangersmith Relationship Specialty [place] [address] [place] [address] PCP - General 06/21/10 Arlyn Schmidt MD [address] [place] [address] Consulting Physician Internal Medicine-Endocrinology, Diabetes & Metabolism 11/28/20 Tacho Echavarria MD 1 [place] [address] Internal Medicine-Medical Oncology 11/12/23 Matt Ulrich MD 1 [place] [address] Surgery-Surgical Oncology 12/04/23 Eze Brock Pastoral Care 12/13/23 Annette Walker, GENERAL CLERK Unit Educator 05/13/24 Batool Celis MD 1 [facility] [address] Radiation Oncologist Radiology-Radiation Oncology 06/08/24 documented as of this encounter
--- OUTSIDE RECORDS SUMMARY | 2025-03-01 15:51 | XMS_ITS | Encounter Summary ---
Author Organization [place] [address] Care Team Providers Care Wafer Cleaner Name Role Phone Chetna Cedeno MD Primary Care Provider [phone] Arlyn Schmidt MD Unavailable [phone] Tacho Echavarria MD Unavailable [phone] Matt Ulrich MD Unavailable [phone] Eze Brock Unavailable Cheryl Nair RN Unavailable [phone] Sanam Murray MARINE FARMER Unavailable Unavailable Annette Walker MARINE FARMER Unavailable [phone] Batool Celis MD Unavailable [phone] Encounter Details Date Type Department Care Team (Late st Contact Info) Description 07/06/2024 Orders Only [facility] One [facility] [address] [place] [address] Shilpa Tan MD [address] [place] [phone] Social History Tobacco Use Types Packs/Day Years [...] a senior care (including now)? No 11/07/2023 [facility] [...] 07/06/2024 4:32 PM Kayla Lee RN * [place] Suicide Severity Rating Scale (Q shift for [...] [facility] [address] [place] [address] Samm Ledesma, PATTERN WEAVER [address] [facility] [address] [place] [address] 03/10/2025 12:30 PM EDT Appointment [place] [address] Tacho Echavarria MD [address] [place] [address] 03/10/2025 1:00 PM EDT Appointment [facility] [place] [address] Tacho Echavarria MD [address] [place] [address] [phone] 04/29/2025 9:15 AM EDT Appointment [place] [address] Batool Celis MD [address] [place] [address] [place] [address] 05/19/2025 2:15 PM EST Office Visit [facility] [address] [address] Sin Tran MD [address] [place] [address] 08/12/2025 10:40 AM EST Appointment [facility] Women[facility]ness [facility] [place] [address] Matt Ulrich MD [address] [place] [address] documented as of this encounter Goals Goal [...] with any future questions or concerns. Breast [facility] Breast Health Not on track(2024 [...] 07/06/2024 12:5 1 PM EST Narrative [facility] - 09/24/2024 2:31 PM EDT Requesting Provider: MATT Womack Specimen = [id number] us Shilpa Tan MD PATHOLOGY ORDERABLES Final R esult Performing Organization Address City/State/[facility] Co de Phone Number [facility] 1 [place] [address] documented in this encounter Visit Diagnoses Not on filedocumented in this encounter Additional Health Concerns Infection Onset Date Last Indicated Resolved Time COVID-19 09/04/2024 09/04/2024 09/24/2024 10:1 2 PM EDT Assessment Noted Time PHQ-9 Depression Total Score: 12 024 12:00 PM EDT documented as of this encounter Care Teams Wafer Cleaner Relationship Specialty [place] [address] [place] [address] PCP - General 06/21/10 Arlyn Schmidt MD [address] [place] [address] Consulting Physician Internal Medicine-Endocrinology , Diabetes & Metabolism 11/28/20 Tacho Echavarria MD 1 [place] [address] Internal Medicine-Medical Oncology 11/12/23 Matt Ulrich MD 1 [place] [address] Surgery-Surgical Oncology 12/04/23 Eze Brock Pastoral Care 12/13/23 Cheryl Nair, RN Oncology Nurse Navigator 03/25/2412/13 Sanam Murray MSW Enrollment Advisor 04/10/24 07/30/24 Annette Walker MSW Enrollment Advisor 05/13/24 Batool Celis MD 1 [facility] [place] [address] Radiation Oncologist Radiology-Radiation Oncology 06/08/24 documented as of this encounter
--- OUTSIDE RECORDS SUMMARY | 2025-03-01 15:51 | XMS_ITS | Encounter Summary ---
Author Organization [place] [address] Care Team Providers Care Fruit Coordinator Name Role Phone Chetna Cedeno MD Primary Care Provider [phone] Arlyn Schmidt MD Unavailable [phone] Tacho Echavarria MD Unavailable [phone] Matt Ulrich MD Unavailable [phone] Eze Brock Unavailable Cheryl Nair RN Unavailable [phone] Annette Walker DATABASE SUPPORT Unavailable [phone] Batool Celis MD Unavailable [phone] Encounter Details Date Type Department Care Team (Late st Contact Info) Description 10/27/2024 Orders Only [facility] Physical Therapy [place] [address] [facility] [address] [place] [address] Shaunna Workman PT Social History [...] PHQ-2 Total Score 5 07/07/2024 [facility] of Occupat ional Health - Occupational Stress [...] a senior care (including now)? No 11/07/2023 [facility] IP Transportation Answer [...] HECTOR [address] [facility] [address] [place] [address] Samm Ledesma, LIGHT RAIL VEHICLE OPERATOR [address] [facility] [address] [place] [address] 03/10/2025 12:30 PM EDT Appointment [facility] [place], [place] [phone] Tacho Echavarria MD [address] [place] [address] [phone] 03/10/2025 1:00 PM EDT Appointment [facility] [place] [address] Tacho Echavarria MD [address] [place] [address] [phone] 04/29/2025 9:15 AM EDT Appointment [facility] RAD ONC [place], [place] [phone] Batool Celis MD [address] [place] [address] 05/19/2025 2:15 PM EST Office Visit [address] 401 [facility] 1D [place] [address] Sin Tran MD [address] [place] [address] RD [place] [address] 08/12/2025 10:40 AM EST Appointment [facility] Women's Wellness [place] [address] [facility] [address] [place] [place] [address] Matt Ulrich MD [address] [place] [address] [address] [place] [address] documented as of this encounter [...] documented as of this encounter Care Teams Fruit Coordinator Relationship Specialty [place] [address] [place] [phone] PCP - General 06/21/10 Arlyn Schmidt MD [address] [place], [place] [address] Consulting Physician Internal Medicine-Endocrinology , Diabetes & Metabolism 11/28/20 Tacho Echavarria MD 1 [place] [address] Internal Medicine-Medical Oncology 11/12/23 Matt Ulrich MD 1 [place] [address] Surgery-Surgical Oncology 12/04/23 Eze Brock Pastoral Care 12/13/23 Cheryl Nair, RN Oncology Nurse Navigator 03/25/2412/13 Annette Walker, ARACELI Brush Finisher 05/13/24 Batool Celis MD 1 [facility] [place] [address] Radiation Oncologist Radiology-Radiation Oncology 06/08/24 documented as of this encounter
--- OUTSIDE RECORDS SUMMARY | 2025-03-01 15:51 | XMS_ITS | Encounter Summary ---
Author Organization [place] [address] Care Team Providers Care Cut Off Machine Operator Name Role Phone Kit Cedeno MD Primary Care Provider [phone] Arlyn Schmidt MD Unavailable [phone] Cheryl Nair RN Unavailable [phone] Tacho Echavarria MD Unavailable [phone] Matt Ulrich MD Unavailable [phone] Hilary Clemens RN Unavailable Unavaila Eze Caro Unavailable Shila Albrecht RN Unavailable Unavail able Cheyanne To RN Unavailable Unavailabl Rayna Wong RN Unavailable Unavailab Shilpa Olivarez RN Unavailable [phone] Tulio Duong RN Unavailable Unavailable Yaquelin Weaver RN Unavailable Unavailable Pam Wang RN Unavailable Unavailable Jazmín Nair RN Unavailable Unavailable Fidel Rainey RN Unavailable Unavailable Cheryl Nair RN Unavailable [phone] Ophelia Lala RN Unavailable Glo Lee RN Unavailable Unavailab Sanam Evans CHIEF PSYCHOLOGIST Unavailable Unavailable Hilary Clemens RN Unavailable Unavaila Ruthy Clayton RN Unavailable Unavailable Rayna Partida RN Unavailable Unavailab Artru Nelson RN Unavailable Unavailable Annette Walker CHIEF PSYCHOLOGIST Unavailable [phone] Emmie Crain RN Unavailable Unavailable Brigida Enriquez RN Unavailable Unavailable Fidel Rainey RN Unavailable Unavailable Batool Celis MD Unavailable [phone] Encounter Details Date Type Department Care Team (Late st Contact Info) Description 10/25/2023 Orders Only [facility] One [facility] [place] [address] Diane Ellis MD 1 [place] [address] Social History Tobacco Use Types [...] [address] [facility] [address] [place] [address] Samm Ledesma DATA ENTRY ANALYST [address] [facility] [address] [place] [address] 03/10/2025 12:30 PM EDT Appointment [place] [address] aTcho Echavarria MD [address] [place] [address] 03/10/2025 1:00 PM EDT Appointment [facility] [place] [address] Tacho Echavarria MD [address] [place] [address] 04/29/2025 9:15 AM EDT Appointment [place] [address] Batool Celis MD 1 [facility] [place] [address] 05/19/2025 2:15 PM EST Office Visit [facility] [address] [place] [address] Sin Tran MD [facility] [place] [address] 08/12/2025 10:40 AM EST Appointment [facility] Women's Wellness [place] One [facility] [place] [phone] Matt Ulrich MD 20 [facility] 254 [place] [phone] documented as of this encounter Goals Goal [...] 10/25/2023 10:4 4 AM EDT Narrative [facility] - 11/11/2023 2:42 PM EDT Requesting Provider: KIT Womack Specimen = [id number] us Diane Ellis MD PATHOLOGY ORDERABLES Final Resul t [facility] [address] [facility] [address] [place] [phone] documented in this encounter Visit Diagnoses Not on filedocumented in this encounter Additional Health Concerns Infection Onset Date Last Indicated Resolved Time COVID-19 09/04/2024 09/04/2024 09/24/2024 10:1 2 PM EDT documented as of this encounter Care Teams Cut Off Machine Operator Relationship Specialty [place] [address] [place] [phone] PCP - General 06/21/10 Arlyn Schmidt MD [address] [place], [place] [phone] Consulting Physician Internal Medicine-Endocrinolog y, Diabetes & Metabolism 11/28/20 Cheryl Nair, RN Oncology Nurse Navigator 10/29/2302/05 Tacho Echavarria MD [address] [place] [address] [phone] Internal Medicine-Medical Oncology 11/12/23 Matt Ulrich MD 1 [place] [address] Surgery-Surgical Oncology 12/04/23 Hilary Clemens, RN Registered Nurse Infusion Therapy 12/05/23 12/05/23 Eze Brock Pastoral Care 12/13/23 Shila Albrecht, RN Registered Nurse Infusion Therapy 12/19/23 12/19/23 Cheyanne To, RN Registered Nurse Infusion Therapy 01/16/24 01/16/24 Rayna Partida, RN Registered Nurse Infusion Clinic 01/23/24 01/23/24 Shilpa Cline, RN Oncology Nurse Navigator 02/04/2403/09 Tulio Duong, RAUL [...] Nurse Infusion Therapy 04/03/24 04/03/24 Sanam Murray, [facility] Appraisal Manager 04/10/24 07/30/24 Hilary Clemens, RN Registered Nurse Infusion Therapy 04/21/24 04/21/24 Ruthy Walker RN Registered Nurse Infusion Therapy 04/24/24 04/24/24 Rayna Partida, RN Registered Nurse Infusion Clinic 05/01/24 05/01/24 Artur Roberts RN Registered Nurse Infusion Therapy 05/07/24 05/07/24 Annette Walker, CHIEF PSYCHOLOGIST Appraisal Manager 05/13/24 Emmie Crain, RN Registered Nurse Infusion Therapy 05/14/24 05/14/24 Brigida Enriquez, RN Registered Nurse Infusion Clinic 05/21/24 05/21/24 Fidel Rainey, RN Registered Nurse Infusion Therapy 05/28/24 05/28/24 Batool Celis MD [address] [place] [address] [place] [address] Radiation Oncologist Radiology-Radiation Oncology 06/08/24 documented as of this encounter
--- OUTSIDE RECORDS SUMMARY | 2025-03-01 15:51 | XMS_ITS | Encounter Summary ---
Author Organization [place] [address] Care Team Providers Care First Aid Trainer Name Role Phone Kit Cedeno MD Primary Care Provider [phone] Arlyn Schmidt MD Unavailable [phone] Cheryl Nair RN Unavailable [phone] Tacho Echavarria MD Unavailable [phone] Matt Ulrich MD Unavailable [phone] Hilary Clemens RN Unavailable Unavaila Eze Caro Unavailable Shila Albrecht RN Unavailable Unavail able Cheyanne To RN Unavailable Unavailabl Rayna Wong RN Unavailable Unavailab Shilpa Olivarez RN Unavailable [phone] Tulio Duong RN Unavailable Unavailable Yaquelin Weaver RN Unavailable Unavailable Pam Wang RN Unavailable Unavailable Jazmín Nair RN Unavailable Unavailable Fidel Rainey RN Unavailable Unavailable Cheryl Nair RN Unavailable [phone] Ophelia Lala RN Unavailable Glo Lee RN Unavailable Unavailab Sanam Evans REGULATORY SCIENTIST Unavailable Unavailable Hilary Clemens RN Unavailable Unavaila Ruthy Clayton RN Unavailable Unavailable Rayna Partida RN Unavailable Unavailab Artur Nelson RN Unavailable Unavailable Annette Walker REGULATORY SCIENTIST Unavailable [phone] Emmie Crain RN Unavailable Unavailable Brigida Enriquez RN Unavailable Unavailable Fidel Rainey RN Unavailable Unavailable Batool Celis MD Unavailable [phone] Encounter Details Date Type Department Care Team (Late st Contact Info) Description 10/25/2023 Orders Only [facility] One [facility] [place] [address] Diane Ellis MD 1 [place] [address] Social History Tobacco Use Types [...] [address] [facility] [address] [place] [address] Samm Ledesma LEATHER COVERER [address] [facility] [address] [place] [address] 03/10/2025 12:30 PM EDT Appointment [place] [address] Tacho Echavarria MD [address] [place] [address] 03/10/2025 1:00 PM EDT Appointment [facility] [place] [address] Tacho Echavarria MD [address] [place] [address] 04/29/2025 9:15 AM EDT Appointment [place] [address] Batool Celis MD 1 [facility] [place] [address] 05/19/2025 2:15 PM EST Office Visit [facility] [address] [place] [address] Sin Tran MD [facility] [place] [address] 08/12/2025 10:40 AM EST Appointment [facility] Women's Wellness [place] One [facility] [place] [address] Matt Ulrich MD 20 [facility] 254 [place] [phone] documented as of this encounter Goals Goal [...] EDT) 10/25/2023 10:4 4 AM EDT Narrative [facility] - 11/11/2023 7:42 AM EDT Requesting Provider: KIT Womack Specimen = [id number] us Diane Ellis MD PATHOLOGY ORDERABLES Final Resul t [facility] 1 [facility] [address] [place] [phone] documented in this encounter Visit Diagnoses Not on filedocumented in this encounter Additional Health Concerns Infection Onset Date Last Indicated Resolved Time COVID-19 09/04/2024 09/04/2024 09/24/2024 10:1 2 PM EDT documented as of this encounter Care Teams First Aid Trainer Relationship Specialty [place] [address] [place] [address] PCP - General 06/21/10 Arlyn Schmidt MD [address] [place], [place] [phone] Consulting Physician Internal Medicine-Endocrinolog y, Diabetes & Metabolism 11/28/20 Cheryl Nair, RN Oncology Nurse Navigator 10/29/2302/05 Tacho Echavarria MD [address] [place] [address] [phone] Internal Medicine-Medical Oncology 11/12/23 Matt Ulrich MD [address] [place] [address] [phone] Surgery-Surgical Oncology 12/04/23 Hilary Clemens, RN Registered [...] Nurse Infusion Therapy 04/03/24 04/03/24 Sanam Murray, REGULATORY SCIENTIST Granite Polisher Machine 04/10/24 07/30/24 Hilary Clemens, RN Registered Nurse Infusion Therapy 04/21/24 04/21/24 Ruthy Walker RN Registered Nurse Infusion Therapy 04/24/24 04/24/24 Rayna Partida, RN Registered Nurse Infusion Clinic 05/01/24 05/01/24 Artur Roberts RN Registered Nurse Infusion Therapy 05/07/24 05/07/24 Annette Walker, REGULATORY SCIENTIST Granite Polisher Machine 05/13/24 Emmie Crain, RN Registered Nurse Infusion Therapy 05/14/24 05/14/24 Brigida Enriquez, RN Registered Nurse Infusion Clinic 05/21/24 05/21/24 Fidel Rainey, RN Registered Nurse Infusion Therapy 05/28/24 05/28/24 Batool Celis MD 1 [facility] [address] Radiation Oncologist Radiology-Radiation Oncology 06/08/24 documented as of this encounter
--- OUTSIDE RECORDS SUMMARY | 2025-03-01 15:51 | XMS_ITS | Encounter Summary ---
Author Organization [place] [address] Care Team Providers Care Object Oriented Developer Name Role Phone Chetna Cedeno MD Primary Care Provider Arlyn Schmidt MD Unavailable [phone] Tacho Echavarria MD Unavailable Matt Ulrich MD Unavailable Eze Brock Unavailable Cheryl Nair RN Unavailable [phone] Annette Walker OPERATIONS LABEL CLERK Unavailable [phone] Batool Celis MD Unavailable [phone] Encounter Details Date Type Department Care Team (Late st Contact Info) Description 12/07/2024 Results Follow-Up HECTOR ENDOSCOPY [address] [facility] [place] [address] King Oliva MD 340 [place] [address] PATHOLOGY TISSUE REQUEST Social History Tobacco Use [...] in a halfway (including now)? No 11/07/2023 [facility] IP Transportation Answer D ate Recorded [...] [facility] [address] [place], [place] [phone] Samm Ledesma, STONE HAND [address] [facility] [address] [place] [address] 03/10/2025 12:30 PM EDT Appointment [facility] [place], [place] [phone] Tacho Echavarria MD [address] [place] [address] 03/10/2025 1:00 PM EDT Appointment [facility] Medical Oncology [place], [place] [phone] Tacho Echavarria MD [address] [place] [address] [phone] 04/29/2025 9:15 AM EDT Appointment [facility] RAD ONC [place], [place] [phone] Batool Celis MD [address] [place] [address] [place] [address] 05/19/2025 2:15 PM EST Office Visit [address] [place] [address] Sin Tran MD [address] [place] [address] [phone] 08/12/2025 10:40 AM EST Appointment [facility] Women's Wellness [place] One [facility] [place] [address] Matt Ulrich MD [address] [place] [address] DR MUSA Hameed [place] [address] documented as of this encounter Goals Goal Patient Goal Type Associated Problems Recent Progress Patient-Stated? Author Blood Pressure < 140/90 Blood Pressure 121/77(02/04 2:04 PM EDT) No Chetna Cedeno MD Breast [facility] Breast Health On track(2024 11:27 AM EDT) No Jasmin Porter, RAUL Note: Patient acknowledges understanding of new diagnosis, plan of care, available resources and how to contact Nurse Navigator with any future questions or concerns. Breast [facility] Breast Health Not on track(2024 11:27 AM EDT) No Jasmin Porter, RAUL Note: Patient will be compliant with monthly SBE and is aware of who to contact for any unusual or concerning findings. Breast [facility] Breast Health On track(2024 11:27 [...] documented as of this encounter Care Teams Object Oriented Developer Relationship Specialty [place] [address] [place] [address] PCP - General 06/21/10 Arlyn Schmidt MD [address] [place], [place] [phone] Consulting Physician Internal Medicine-Endocrinology , Diabetes & Metabolism 11/28/20 Tacho Echavarria MD 1 [place] [address] Internal Medicine-Medical Oncology 11/12/23 Matt Ulrich MD 1 [place] [address] Surgery-Surgical Oncology 12/04/23 Eze Brock Pastoral Care 12/13/23 Cheryl Nair, RN Oncology Nurse Navigator 03/25/2412/13 Annette Walker, OPERATIONS LABEL CLERK Business Strategy Manager 05/13/24 Batool Celis MD 1 [facility] [place] [address] Radiation Oncologist Radiology-Radiation Oncology 06/08/24 documented as of this encounter
--- OUTSIDE RECORDS SUMMARY | 2025-03-01 15:51 | XMS_ITS | Encounter Summary ---
Author Organization [place] [address] Care Team Providers Care Coding Quality Analyst Name Role Phone Chetna Cedeno MD Primary Care Provider [phone] Arlyn Schmidt MD Unavailable [phone] Tacho Echavarria MD Unavailable [phone] Matt Ulrich MD Unavailable [phone] Eze Brock Unavailable Annette Walker MATERIAL MOVERS Unavailable [phone] Batool Celis MD Unavailable [phone] Encounter Details Date Type Department Care Team (Late st Contact Info) Description 02/01/[address] [facility] Cancer Care [facility] [place] [address] Sonny Fleming, MATERIAL MOVERS Social History Tobacco Use Types Packs/Day Years [...] your doctor or pharmacy? Never 11/07/2023 [facility] Utilities Answer Date Recorded In the past 12 months has th e electric, gas, oil, or water Eve[employer] threatened to shut off services in your [...] Date Recorded PHQ-2 Total Score 5 07/07/2024 [facility] Liberal of Occupat ional Health - Occupational Stress [...] in a correction (including now)? No 11/07/2023 [facility] IP [...] - 02/01/2025 3:04 PM EDT 02/01/25 1504 Freight Caller Assessment Referred By Pt. Call Disease/[place] Aircraft Mechanic Armament Assignment Breast cancer Referral Location: Women???s Wellness [...] HECTOR [address] [facility] [address] [place] [address] Samm Ledesma, BSA/AML COMPLIANCE OFFICER [address] [facility] [address] [place] [address] 03/10/2025 12:30 PM EDT Appointment [place] [address] Tacho Echavarria MD [address] [place] [address] 03/10/2025 1:00 PM EDT Appointment [facility] Care Medical Oncology [place], [place] [phone] Tacho Echavarria MD 1 [place], [place] [phone] 04/29/2025 9:15 AM EDT Appointment [facility] [place] [place] [address] Batool Celis MD 1 [facility] [place] [address] 05/19/2025 2:15 PM EST Office Visit [facility] [address] [place] [address] [address] [place] [address] Sin Tran MD [address] [place] [address] 08/12/2025 10:[address] [facility] Women's Wellness [place] One [place] [address] Matt Ulrich MD [address] [address] documented as of this encounter Goals Goal [...] documented as of this encounter Care Teams Coding Quality Analyst Relationship Specialty [place] [address] [place] [address] PCP - General 06/21/10 Arlyn Schmidt MD [address] [place] [address] Consulting Physician Internal Medicine-Endocrinology, Diabetes & Metabolism 11/28/20 Tacho Echavarria MD 1 [place] [address] Internal Medicine-Medical Oncology 11/12/23 Matt Ulrich MD 1 [place] [address] Surgery-Surgical Oncology 12/04/23 Eze Brock Pastoral Care 12/13/23 Annette Walker, ARACELI Aircraft Mechanic Armament 05/13/24 Batool Celis MD 1 [facility] [place], [place] 6[address] Radiation Oncologist Radiology-Radiation Oncology 06/08/24 documented as of this encounter
--- OUTSIDE RECORDS SUMMARY | 2025-03-01 15:52 | XMS_ITS | Encounter Summary ---
Author [place] [address] Care Team Providers Care Flap Curer Name Role Phone Chetna Cedeno MD Primary Care Provider [phone] Arlyn Schmidt MD Unavailable [phone] Tacho Echavarria MD Unavailable [phone] Matt Ulrich MD Unavailable [phone] Eze Brock Unavailable Annette Walker Unavailable [phone] Batool Celis MD Unavailable [phone] Reason for Visit * Reason Comments Pharmacy Migraine Medication Management Qulipta/Nurtec Encounter Details Date Type Department Care Team (Latest Contact Info) Description 02/26/2025 Specialty Pharmacy [facility] [address] [place] [address] Charlotte Martino CPhT Pharmacy Migraine Medication Management (Qulipta/Nurtec) Social History Tobacco Use Types Packs/Day Years [...] your doctor or pharmacy? Never 11/07/2023 [facility] Utilities Answer Date Recorded In [...] Date Recorded PHQ-2 Total Score 5 07/07/2024 [facility] of Occupat ional Health - Occupational Stress [...] in a halfway (including now)? No 11/07/2023 [facility] IP Transportation Answer D ate [...] documented in this encounter Progress Notes * Charlotte Martino CPhT - 02/26/2025 11:29 AM EDT Specialty Pharmacy Refill Coordination Note Contacted [facility] today regarding refills of Qulipta/Nurtec. Copay amount: $0 No answer, unable to leave voicemail. documented in this encounter Plan of Treatment Upcoming Encounters Date Type Department Care Team (Late st Contact Info) Description 03/09/2025 12:45 PM EDT Procedure visit [facility] [address] [place] [address] Samm Ledesma APRN [address] [place] [address] 03/10/2025 12:30 PM EDT Appointment [place] [address] Tacho Echavarria MD [address] [place] [address] 03/10/2025 1:00 PM EDT [facility]ointment [facility] On[facility] [place], [place] [phone] Tacho Echavarria MD [address] [place] [address] [id number] 04/29/2025 9:15 AM EDT Appointment [place] [address] Batool Celis MD [address] [place] [address] [place] [address] 05/19/2025 2:15 PM EST Office Visit [facility] [address] [facility] [address] [place] [address] Sin Tran MD [address] [facility] [place] [address] 08/12/2025 10:40 AM EST Appointment [facility] Women's Wellness [place] [address] [facility] [place] [address] Matt Ulrich MD 20 [facility] [address] [place] [address] documented as of this encounter [...] documented as of this encounter Care Teams Flap Curer Relationship Specialty [place] [address] [place] [address] PCP - General 06/21/10 Arlyn Schmidt MD [address] [place], [place] [id number] Consulting Physician Internal Medicine-Endocrinology, Diabetes & Metabolism 11/28/20 Tacho Echavarria MD 1 [place] [address] Internal Medicine-Medical Oncology 11/12/23 Matt Ulrich MD 1 [place] [address] Surgery-Surgical Oncology 12/04/23 Eze Brock Pastoral Care 12/13/23 Annette Walker MSW Health It Specialist 05/13/24 Batool Celis MD 1 [facility] [place] [address] Radiation Oncologist Radiology-Radiation Oncology 06/08/24 documented as of this encounter
--- OUTSIDE RECORDS SUMMARY | 2025-03-01 15:52 | XMS_ITS | Encounter Summary ---
Author Organization [place] [address] Care Team Providers Care Biomedical Engineering Technologist Name Role Phone Chetna Cedeno MD Primary Care Provider [phone] Arlyn Schmidt MD Unavailable [phone] Tacho Echavarria MD Unavailable [phone] Matt Ulrich MD Unavailable [phone] Eze Brock Unavailable Annette Walker Unavailable [phone] Batool Celis MD Unavailable [phone] Reason for Visit * Reason Onset Date Comments Symptom Call 02/05/2025 lightheaded / he adache Encounter Details Date Type Department Care Team (Late st Contact Info) Description 02/05/2025 Telephone [facility] On[facility] [place], [place] [phone] Tacho Echavarria MD [address] [place] [address] [phone] Symptom Call (lightheaded / headache ) Social [...] 07/07/2024 [facility] of Occupat ional Health - [...] in a intermediate (including now)? No 11/07/2023 [facility] [...] relief. Rates 4/10. Went to ER in [facility] last week r/t diarrhea, K was 2.5 [...] seen at: [facility] Preferred call back number: [phone] Explained to the caller, if this is a medical emergency please call 911 or go to the nearest emergency room. documented in this encounter Plan of Treatment Upcoming Encounters Date Type Department Care Team (Late st Contact Info) Description 03/09/2025 12:45 PM EDT Procedure visit [facility] [address] [place] [address] Samm Ledesma, READING AIDE [address] [facility] [address] [place] [address] 03/10/2025 12:30 PM EDT Appointment [facility] [address] Tacho Echavarria MD [address] [place] [address] 03/10/2025 1:00 PM EDT Appointment [facility] [place] [address] Tacho Echavarria MD [address] [place] [phone] 04/29/2025 9:15 AM EDT Appointment [facility] [place] [address] Batool Celis MD 1 [facility] [place] [address] 05/19/2025 2:15 PM EST Office Visit [facility] [address] [place] [address] Sin Tran MD [address] [place] [address] 08/12/2025 10:40 AM EST Appointment [facility] Women's Wellness [place] One [facility] [place] [address] Matt Ulrich MD 20 [place] [address] documented as of this encounter Goals Goal [...] documented as of this encounter Care Teams Biomedical Engineering Technologist Relationship Specialty [place] [address] [place] [address] PCP - General 06/21/10 Arlyn Schmidt MD [address] [place], [place] [phone] Consulting Physician Internal Medicine-Endocrinology, Diabetes & Metabolism 11/28/20 Tacho Echavarria MD 1 [place], [place] [phone] Internal Medicine-Medical Oncology 11/12/23 Matt Ulrich MD 1 [place], [place] [phone] Surgery-Surgical Oncology 12/04/23 Eze Brock Pastoral Care 12/13/23 Annette Walker MSW [employer] Travel Counselor 05/13/24 Batool Celis MD 1 [facility] CANCER [place], [place] [phone] Radiation Oncologist Radiology-Radiation Oncology 06/08/24 documented as of this encounter
--- OUTSIDE RECORDS SUMMARY | 2025-03-01 15:52 | XMS_ITS | Encounter Summary ---
Author Organization [place] [address] Care Team Providers Care Chemist Inorganic Name Role Phone Chetna Cedeno MD Primary Care Provider [phone] Arlyn Schmidt MD Unavailable [phone] Tacho Echavarria MD Unavailable [phone] Matt Ulrich MD Unavailable [phone] Eze Brock Unavailable Shilpa Cline RN Unavailable [phone] Cheryl Nair RN Unavailable [phone] Ophelia Lala RN Unavailable Glo Lee RN Unavailable Unavailab Sanam Evans CLAY THROWER Unavailable Unavailable Hilary Clemens RN Unavailable Unavaila Ruthy Clayton RN Unavailable Unavailable Rayna Partida RN Unavailable Unavailab Artur Nelson RN Unavailable Unavailable Annette Walker CLAY THROWER Unavailable [phone] Emmie Crain RN Unavailable Unavailable Brigida Enriquez RN Unavailable Unavailable Fidel Rainey RN Unavailable Unavailable Batool Celis MD Unavailable [phone] Encounter Details Date Type Department Care Team (Late st Contact Info) Description 03/18/2024 Lab Requisition [facility] [place] [address] Provider, Unknown Malignant neoplasm of unspecified site [...] Date Recorded PHQ-2 Total Score 0 11/07/2023 [facility] of Occupat ional Health - [...] [facility] [address] [place], [place] [id number] Samm Ledesma, HOMEL[employer] SECURITY PROGRAM SPECIALIST [address] [facility] [address] [place] [address] 03/10/2025 12:30 PM EDT Appointment [facility] [place], [place] [phone] Tacho Echavarria MD [address] [place] [address] [phone] 03/10/2025 1:00 PM EDT Appointment [facility] On[facility] [place], [place] [phone] Tacho Echavarria MD [address] [place] [address] 04/29/2025 9:15 AM EDT Appointment [facility] [place] [address] Batool Celis MD [address] [place] [address] [place] [address] 05/19/2025 2:15 PM EST Office Visit [facility] [address] [facility] [address] [place] [address] Sin Tran MD [address] [place] [address] 08/12/2025 10:40 AM EST Appointment [facility] Women's Wellness [facility] [place] [address] Matt Ulrich MD [address] [place] [address] DR [place] [address] documented as of this encounter Goals Goal [...] EDT) CASE REPORT Surgical Pathology Report Case: [id number] Authorizing Provider: Provider, Unknown Collected: 03/18/2024 1327 Ordering Location: [facility] Received: 03/18/2024 1327 Pathologist: Diane Ellis MD Specimen: Breast, Right, Request for case [id number] slides to [facility]. 05/04/2024 1:26 PM EDT [facility] FINAL DIAGNOSIS Results will be scanned in this case as an addendum. 05/04/2024 1:26 PM EDT [facility] at 1329 EDT EMBEDDED IMAGES 05/04/2024 1:26 PM EDT [facility] ADDENDUM Refer to Scanned [facility] Surgical Pathology Report. 05/04/2024 1:26 PM EDT [facility] Addendum electronically signed by Diane Ellis MD on 05/04/2024 at 1326 EDT Tissue RIGHT BREAST STRUCTURE / Unknown 03/18/2024 1:27 PM EDT 03/18/2024 1:27 PM EDT us Unknown Provider PATHOLOGY ORDERABLES Edited Res ult - Final [facility] [address] [place] [phone] documented in this encounter Visit Diagnoses Diagnosis Malignant neoplasm of unspecified site of right female breast (HCC) documented in this encounter Additional Health Concerns Infection Onset Date Last Indicated Resolved Time COVID-19 09/04/2024 09/04/2024 09/24/2024 10:1 2 PM EDT Assessment Noted Time PHQ-9 Depression Total Score: 12 024 12:00 PM EDT documented as of this encounter Care Teams Chemist Inorganic Relationship Specialty [place] [address] [place] [address] PCP - General 06/21/10 Arlyn Schmidt MD [address] [place], [place] [phone] Consulting Physician Internal Medicine-Endocrinolog y, Diabetes & Metabolism 11/28/20 Tacho Echavarria MD 1 [place], [place] [phone] Internal Medicine-Medical Oncology 11/12/23 Matt Ulrich MD 1 [place] [address] Surgery-Surgical Oncology 12/04/23 Eze Brock Pastoral Care 12/13/23 Shilpa Cline, RN Oncology Nurse Navigator 02/04/2403/09 Cheryl Nair, RN Oncology Nurse Navigator 03/25/2412/13 Ophelia Lala, RN Registered Nurse Infusion Therapy 03/27/24 03/27/24 Glo Lee, RN Registered Nurse Infusion Therapy 04/03/24 04/03/24 Sanam Murray, [facility] Backend Python Developer 04/10/24 07/30/24 Hilary Clemens, RN Registered Nurse Infusion Therapy 04/21/24 04/21/24 Ruthy Walker RN Registered Nurse Infusion Therapy 04/24/24 04/24/24 Rayna Partida, RN Registered Nurse Infusion Clinic 05/01/24 05/01/24 Artur Roberts RN Registered Nurse Infusion Therapy 05/07/24 05/07/24 Annette Walker, [facility] Backend Python Developer 05/13/24 Emmie Crain, RN Registered Nurse Infusion Therapy 05/14/24 05/14/24 Brigida Enriquez, RN Registered Nurse Infusion Clinic 05/21/24 05/21/24 Fidel Rainey, RN Registered Nurse Infusion Therapy 05/28/24 05/28/24 Batool Celis MD [address] [place] [address] [place] [address] Radiation Oncologist Radiology-Radiation Oncology 06/08/24 documented as of this encounter
--- OUTSIDE RECORDS SUMMARY | 2025-03-01 15:52 | XMS_ITS | Referral Summary ---
Author Organization [facility] Address [address] [place] [address] Phone Care Team Providers Care Recreation Therapy Director Name Role Phone Chetna Cedeno MD Primary Care Provider [phone] Encounters Date Type Department Care Team Description 01/02/2025 4:26 PM EDT - 01/02/2025 7:27 PM EDT [facility] [address] [place] [address] Dallin Espinoza MD Heat exhaustion, [...] NITROGEN 16 8 - 26 mg/dL [facility] [place] SODIUM 140 135 - 145 mmol/L [facility] [place] POTASSIUM 3.2(L) 3.6 - 5.1 mmol/L [facility] [place] CHLORIDE 107 98 - 111 mmol/L [facility] [place] CO2 20(L) 21 - 31 mmol/L [facility] [place] GLUCOSE, RANDOM 89 70 - 99 mg/dL [facility] [place] CREATININE 1.06 0.60 - 1.20 mg/dL [facility] [place] ANION GAP 13 4 - 16 mmol/L [facility] [place] CALCIUM 9.0 8.5 - 10.4 mg/dL [facility] [place] ESTIMATED GFR 61 >59 mL/min/1.7 3 m2 [facility] [place] Comment: Estimated GFR was calculated using the CKD-EPI cr (2020) equation refit without race. The equation is recommended by the National Kidney Foundation - [place] [employer] of Nephrology Task Force. Tested at [facility] [address] [place] [address] Whole Blood 01/02/2025 5:13 PM EDT 01/02/2025 5:25 PM EDT us Dallin Espinoza MD LAB BLOOD ORDERABLES Final Result [facility] [address] [place] [address] [address] * (ABNORMAL) CBC w/ Diff (01/02/2025 5:13 PM EDT) WBC 7.1 3.6 - 10.5 THOU/mcL [facility]MI[facility] [place] RBC 3.75(L) 3.80 - 5.20 MIL/mcL [facility] [place] HEMOGLOBIN 11.2(L) 12.0 - 15.2 g/dL [facility] [place] HEMATOCRIT 33.6(L) 36 - 46 % [facility] MCV 89.6 82 - 97 fL [facility] MCH 30.0 27 - 33 pg CHEMI[facility] [place] MCHC 33.5 32 - 36 g/dL [facility] [place] RDW 16.0 12.3 - 17.0 % [facility] [place] PLATELET 206 140 - 375 THOU/mcL [facility] [place] MPV 6.9(L) 7.0 - 11.5 fL [facility] [place] ABS. NEUTROPHIL 3.60 1.80 - 7.70 THOU/mcL [facility] [place] ABS LYMPHS 3.00 1.00 - 4.00 THOU/mcL CHEMISTR[facility] [place] ABS MONOS 0.30 0.20 - 0.90 THOU/mcL CHEMISTR[facility] [place] ABS EOS 0.10 0.03 - 0.45 THOU/mcL CHEMISTR[facility] [place] ABS BASOS 0.10 0.00 - 0.20 THOU/mcL [facility]MI[facility] [place] SEGS 51 % [facility] [place] LYMPHOCYTES 43 % CHEMISTR Y NORTH MONOCYTES 4 % CHEMISTRY NORTH EOSINOPHIL 1 % CHEMISTRY [facility]TH BASOPHILS 1 % CHEMISTR[facility] [place] Comment:Tested at [facility] [address] [facility] [address] Whole Blood 01/02/2025 5:13 PM EDT 01/02/2025 5:25 PM EDT Dallin Espinoza MD LAB BLOOD ORDERABLES Final Result [facility] [address] [place] [address] CHEMISTRY [place] [address] [place] [address] * ECG 12 lead (01/02/2025 4:37 PM [...] QTcF 417 ms TH TRACEMASTER QRS Horizontal [place] -19 deg TH TRACEMASTER QRS AXIS 16 deg TH TRACEMASTER I-40 Horizontal [place] 46 deg TH TRACEMASTER I-40 FRONT AXIS -17 deg TH TRACEMASTER T-40 Horizontal [place] -50 deg TH TRACEMASTER T-40 Front [place] 51 deg TH TRACEMASTER T Horizontal [place] 52 deg TH TRACEMASTER T WAVE AXIS 16 deg TH TRACEMASTER S-T Horizontal [place] 60 deg TH TRACEMASTER S-T Front [place] 24 deg TH TRACEMASTER ECG IMPRESSION - BORDERLINE ECG - TH TRACEMASTER ECG IMPRESSION SR-Sinus rhythm-normal P axis, V-rate 50-99 TH TRACEMASTER ECG IMPRESSION LVHVP-Probable left ventricular hypertrophy-mul tiple LVH criteria TH TRACEMASTER ECGGUID [id number] TH TRACEMASTER 01/02/2025 4:37 PM EDT us Dallin Espinoza MD ECG ORDERABLES Final Resu lt TH TRACEMASTER from Last 3 Months Insurance [facility] MEDICAID Care Teams Recreation Therapy Director Relationship Specialty Start Date End Date Chetna Cedeno MD [facility] [address] [place] [address] PCP - General Family Medicine 01/02/25
--- OUTSIDE RECORDS SUMMARY | 2025-03-01 15:52 | XMS_ITS | Encounter Summary ---
Author Organization [place] [address] Care Team Providers Care Inspector Automatic Typewriter Name Role Phone Chetna Cedeno MD Primary Care Provider [phone] Arlyn Schmidt MD Unavailable [phone] Tacho Echavarria MD Unavailable [phone] Matt Ulrich MD Unavailable [phone] Eze Brock Unavailable Annette Walker Unavailable [phone] Batool Celis MD Unavailable [phone] Encounter Details Date Type Department Care Team (Late st Contact Info) Description 02/15/2025 Telephone [facility] Medical Oncology [place], [place] [phone] Tacho Echavarria MD [address] [place] [address] [phone] Social History Tobacco Use Types Packs/Day Years [...] Date Recorded PHQ-2 Total Score 5 07/07/2024 [facility] [place] of Occupat ional Health - Occupational Stress [...] in a jail (including now)? No 11/07/2023 [facility] IP Transportation Answer D [...] Telephone Encounter - Rosana Gupta, RN - 02/15/2025 9:56 AM EDT copy of letter for air conditioning unit will be at the office assistant receptionist desk on the second floor. Copy also placed in scan pile documented in this encounter Plan of Treatment Upcoming Encounters Date Type Department Care Team (Late st Contact Info) Description 03/09/2025 12:45 PM EDT Procedure visit [facility] [address] [place] [address] Samm Ledesma APRN [address] [facility] [address] [place] [address] 03/10/2025 12:30 PM EDT Appointment [place] [address] Tacho Echavarria MD [address] [place] [address] 03/10/2025 1:00 PM EDT Appointment [facility] On[facility] [place], [place] [phone] Tacho Echavarria MD [address] [place] [address] 04/29/2025 9:15 AM EDT Appointment [facility] [address] Batool Celis MD [address] [place] [address] [place] [address] 05/19/2025 2:15 PM EST Office Visit [facility] Sarah [address] [facility] [address] [place] [address] Sin Tran MD [address] [facility] [place] [address] 08/12/2025 10:40 AM EST Appointment [facility] Women's Wellness [place] [address] [place] [address] Matt Ulrich MD [address] [place] [address] [address] [place] [address] documented as of this encounter [...] for any unusual or concerning findings. Breast [facility] Breast Health [...] as of this encounter Care Teams Inspector Automatic Typewriter Relationship Specialty [place] [address] [place] [id number] PCP - General 06/21/10 Arlyn Schmidt MD [address] [place], [place] [phone] Consulting Physician Internal Medicine-Endocrinology, Diabetes & Metabolism 11/28/20 Tacho Echavarria MD 1 [place] [address] Internal Medicine-Medical Oncology 11/12/23 Matt Ulrich MD 1 [place], [place] [phone] Surgery-Surgical Oncology 12/04/23 Eze Brock Pastoral Care 12/13/23 Annette Walker, ARACELI Vice President Investor Relations 05/13/24 Batool Celis MD [address] [place] [address] [place] [address] Radiation Oncologist Radiology-Radiation Oncology 06/08/24 documented as of this encounter
--- OUTSIDE RECORDS SUMMARY | 2025-03-01 15:52 | XMS_ITS | Encounter Summary ---
Author Organization [place] [address] Care Team Providers Care Linen Worker Name Role Phone Chetna Cedeno MD Primary Care Provider [phone] Arlyn Schmidt MD Unavailable [phone] Tacho Echavarria MD Unavailable [phone] Matt Ulrich MD Unavailable [phone] Eze Brock Unavailable Annette Walker BAND SAWMILL OPERATOR Unavailable [phone] Batool Celis MD Unavailable [phone] Encounter Details Date Type Department Care Team (Late st Contact Info) Description 02/04/2025 Social Work [facility] Cancer Care [facility] [place] [address] Annette Walker, BAND SAWMILL OPERATOR Social History Tobacco Use Types Packs/Day [...] Recorded In the past 12 months has [employer], oil, or water [employer] threatened to shut off services in your [...] [facility] of Occupat ional Health - [...] in a mcfp (including now)? No 11/07[facility]2023 [facility] [...] - 02/04/2025 1:42 PM EDT 02/04/25 1341 Conveyor Belt Operator Assessment Referred By DT Disease/[place] Site Account Financial Manager Assignment Breast cancer Referral Location: [facility] Reason for Referral DT Identified Needs Adjustment to illness;Education/Information;Mental Health;Transportation Social Work Interventions Education/Information;Brief Couseling/Support;Transportation Distress Screening SW Reviewed Yes On this date, ARACELI Spears, BLANKET WINDER OPERATOR met with patient in response to receipt of a distress tool submitted on patients behalf. Patient's distress tool rating was 10 and BLANKET WINDER OPERATOR provided brief counseling/support to Patient. Patient explained [...] her depression. We discussed need to establish rodent exterminator relationship with therapist/medication management provider for her mental health. BLANKET WINDER OPERATOR suggested communication with [facility] regarding side effects and possible alternatives. Patient expresses great relief of being out of the [facility] away from unhealthy relationships but has run into some issues with her new housing. She is working closely with [facility] to move to a lower floor and resolve issues including HVAC issues. She received donated air conditioner from [facility] and [facility] has allowed that unit. BLANKET WINDER OPERATOR provided gas cards to assist Patient with fuel costs associated with long drive to her home. Patient expressed that she is focusing on stabilizing her health, gaining strength, and hopes to engage in a volunteer capacity in her new community soon. No other needs identified at this time. BLANKET WINDER OPERATOR remains available to support as needed. documented in this encounter Plan of Treatment Upcoming Encounters Date Type Department Care Team (Late st Contact Info) Description 03/09/2025 12:45 PM EDT Procedure visit [facility] [address] [place] [address] Samm Ledesma, LATEX FASHIONS DESIGNER [address] [place], [place] [id number] 03/10/2025 12:30 PM EDT Appointment [place] [address] Tacho Echavarria MD [address] [place] [address] 03/10/2025 1:00 PM EDT Appointment [facility] [place] [address] Tacho Echavarria MD [address] [place] [address] 04/29/2025 9:15 AM EDT Appointment [place] [address] Batool Celis MD [address] [place] [address] [place] [address] 05/19/2025 2:15 PM EST Office Visit [facility] [place] [address] [facility] [address] [place] [address] Sin Tran MD [address] [place] [address] 08/12/2025 10:40 AM EST Appointment [facility] Women's Wellness [facility] [place] [address] Matt Ulrich MD [address] [place] [address] documented as of this encounter [...] documented as of this encounter Care Teams Linen Worker Relationship Specialty [place] [address] [place] [address] PCP - General 06/21/10 Arlyn Schmidt MD [address] [place] [address] Consulting Physician Internal Medicine-Endocrinology, Diabetes & Metabolism 11/28/20 Tacho Echavarria MD [address] [place] [id number] Internal Medicine-Medical Oncology 11/12/23 Matt Ulrich MD [address] [place] [id number] Surgery-Surgical Oncology 12/04/23 Eze Brock Pastoral Care 12/13/23 Annette Walker, [facility] Account Financial Manager 05/13/24 Batool Celis MD 1 [facility] [place] [address] Radiation Oncologist Radiology-Radiation Oncology 06/08/24 documented as of this encounter
--- OUTSIDE RECORDS SUMMARY | 2025-03-01 15:52 | XMS_ITS | Encounter Summary ---
Author Organization [place] [address] Care Team Providers Care Dethistler Operator Name Role Phone Chetna Cedeno MD Primary Care Provider [phone] Arlyn Schmidt MD Unavailable [phone] Tacho Echavarria MD Unavailable [phone] Matt Ulrich MD Unavailable [phone] Eze Brock Unavailable Annette Walker Unavailable [phone] Batool Celis MD Unavailable [phone] Reason for Visit * Reason Onset Date Comments Appointment Needed 02/04/2025 Encounter Details Date Type Department Care Team (Late st Contact Info) Description 02/04/2025 Telephone [facility] [place] [address] Aliya Harden, Clerical Staff Appointment [...] from your doctor or pharmacy? Never 11/07/2023 [facility] Utilities Answer Date Recorded In the past 12 months has th e electric, gas, oil, or water [employer] threatened to shut off services in your [...] Date Recorded PHQ-2 Total Score 5 07/07/2024 [facility] of Occupat ional Health - Occupational Stress [...] in a custodial (including now)? No 11/07/2023 [facility] [...] Date Author No 12/06/2022 2:08 PM EDT Macaerna Marion CCMA documented in this encounter Miscellaneous [...] [facility] [address] [facility] [address] [place] [address] Samm Ledesma APRN [address] [place] [address] 03/10/2025 12:30 PM EDT Appointment [facility] [place] [id number] Tacho Echavarria MD 1 [place] [address] 03/10/2025 1:00 PM EDT Appointment [facility] Medical Oncology [place], [place] [phone] Tacho Echavarria MD [address] [place] [id number] 04/29/2025 9:15 AM EDT Appointment [facility] RAD ONC [place], [place] [phone] Batool Celis MD [address] [place] [address] [place] [address] 05/19/2025 2:15 PM EST Office Visit [address] [address] Sin Tran MD [address] [place] [address] 08/12/2025 10:40 AM EST Appointment [facility] Women's Wellness [facility] [place] [id number] Matt Ulrich MD [address] [place] [address] [id number] documented as of this encounter Goals Goal [...] documented as of this encounter Care Teams Dethistler Operator Relationship Specialty [place] [address] [place] [address] PCP - General 06/21/10 Arlyn Schmidt MD [address] [place] [address] Consulting Physician Internal Medicine-Endocrinology, Diabetes & Metabolism 11/28/20 Tacho Echavarria MD 1 [place] [address] Internal Medicine-Medical Oncology 11/12/23 Matt Ulrich MD 1 [place] [address] Surgery-Surgical Oncology 12/04/23 Eze Brock Pastoral Care 12/13/23 Annette Walker MSW Central Melt Specialist 05/13/24 Batool Celis MD [address] [place] [address] [place] [address] Radiation Oncologist Radiology-Radiation Oncology 06/08/24 documented as of this encounter
--- OUTSIDE RECORDS SUMMARY | 2025-03-01 15:52 | XMS_ITS | Encounter Summary ---
Author [place] [address] Care Team Providers Care Senior Cost Analyst Name Role Phone Chetna Cedeno MD Primary Care Provider [phone] Arlyn Schmidt MD Unavailable [phone] Tacho Echavarria MD Unavailable [phone] Matt Ulrich MD Unavailable [phone] Eze Brock Unavailable Annette Walker Unavailable [phone] Batool Celis MD Unavailable [phone] Reason for Visit * Reason Onset Date Comments Integrative Oncology Referral 02/05/2025 Encounter Details Date Type Department Care Team (Late st Contact Info) Description 02/05/2025 Telephone [facility] INT ONC [place], [place] [id number] Narda Vickers, Clerical Staff Integrative Oncology Referral [...] th e electric, gas, oil, or water [employer] threatened to shut off services in your [...] Total Score 5 07/07/2024 [facility] [place] of Occupat ional Health - Occupational Stress [...] a mcfp (including now)? No 11/07/2023 [facility] IP [...] Clerical Staff - 02/05/2025 11:38 AM EDT [employer] message sent with Integrative Oncology information and newsletter. Narda documented in this encounter Plan of Treatment Upcoming Encounters Date Type Department Care Team (Late st Contact Info) Description 03/09/2025 12:45 PM EDT Procedure visit [facility] [address] [place] [address] Samm Ledesma APRN [address] [address] [place] [address] 03/10/2025 12:30 PM EDT Appointment [place] [address] Tacho Echavarria MD [address] [place] [address] 03/10/2025 1:00 PM EDT Appointment [facility] [place] [address] Tacho Echavarria MD [address] [place] [address] 04/29/2025 9:15 AM EDT Appointment [place] [address] Batool Celis MD [address] [place] [address] [place] [address] 05/19/2025 2:15 PM EST [facility] [address] [facility] [address] [facility] [address] [place] [address] Sin Tran MD [facility] [place] [address] 08/12/2025 10:40 AM EST Appointment [facility] Women's Wellness [place] [address] [facility] [address] Carbajal [facility] Matt Ulrich MD [address] [place] [address] 254 [place] [address] documented as of this encounter Goals Goal Patient Goal Type Associated Problems Recent Progress Patient-Stated? Author Blood Pressure < 140/90 Blood Pressure 121/77(02/04 2:04 PM EDT) No Chetna Cedeno MD Breast [facility] Breast Health On track(2024 11:27 AM EDT) No Jasmin Porter, RAUL Note: Patient acknowledges understanding of new diagnosis, plan of care, available resources and how to contact Nurse Navigator with any future questions or concerns. Breast [facility] Breast Health Not on track(2024 11:27 AM EDT) No Jasmin Porter, RAUL Note: Patient will be compliant with monthly SBE and is aware of who to contact for any unusual or concerning findings. Breast [facility] Breast Health On track(2024 11:27 AM [...] as of this encounter Care Teams Senior Cost Analyst Relationship Specialty [place] [address] [place] [address] PCP - General 06/21/10 Arlyn Schmidt MD [address] [place], [place] [phone] Consulting Physician Internal Medicine-Endocrinology, Diabetes & Metabolism 11/28/20 Tacho Echavarria MD 1 [place] [address] Internal Medicine-Medical Oncology 11/12/23 Matt Ulrich MD 1 [place], [place] [id number] Surgery-Surgical Oncology 12/04/23 Eze Brock Pastoral Care 12/13/23 Annette Walker, ARACELI Billing Control Clerk 05/13/24 Batool Celis MD 1 [facility] [place] [address] Radiation Oncologist Radiology-Radiation Oncology 06/08/24 documented as of this encounter
--- OUTSIDE RECORDS SUMMARY | 2025-03-01 15:52 | XMS_ITS | Encounter Summary ---
Author Organization [place] [address] Care Team Providers Care Coin Teller Name Role Phone Chetna Cedeno MD Primary Care Provider [phone] Arlyn Schmidt MD Unavailable [phone] Tacho Echavarria MD Unavailable [phone] Matt Ulrich MD Unavailable [phone] Eze Brock Unavailable Annette Walker Unavailable [phone] Batool Celis MD Unavailable [phone] Reason for Visit * Reason Onset Date Comments Other 02/05/2025 BW Encounter Details Date Type Department Care Team (Late st Contact Info) Description 02/05/2025 Telephone [facility] [place] [address] [place] [address] [place] [address] [place] [address] Other (BW) Social History Tobacco Use [...] doctor or pharmacy? Never 11/07/2023 [facility] Utilities Answer Date Recorded In the [...] Date Recorded PHQ-2 Total Score 5 07/07/2024 [facility] of Occupat ional Health - Occupational [...] a nursing home (including now)? No 11/07/2023 [facility] IP Transportation Answer D [...] potassium tabs for her to [facility] [place] * Telephone Encounter - Destiny Alejandre CCMA [...] HECTOR [address] [facility] [address] [place] [address] Samm Ledesma APRN [address] [facility] [address] [address] [place] [address] 03/10/2025 12:30 PM EDT Appointment [facility] [place] [phone] Tacho Echavarria MD 1 [place], [place] [id number] 03/10/2025 1:00 PM EDT Appointment [facility] Care Medical Oncology [place], [place] [address] Tacho Echavarria MD [address] [place] [address] [id number] 04/29/2025 9:15 AM EDT Appointment [place] [address] Batool Celis MD 1 [facility] [place] [address] 05/19/2025 2:15 PM EST Office Visit [address] [address] Sin Tran MD [address] [place] [address] 08/12/2025 10:40 AM EST Appointment [facility] Women's Wellness [facility] [place] [address] Matt Ulrich MD [address] [place] [address] 254 [place] [address] documented as of this encounter Goals Goal [...] documented as of this encounter Care Teams Coin Teller Relationship Specialty [place] [address] [place] [address] PCP - General 06/21/10 Arlyn Schmidt MD [address] [place] [address] Consulting Physician Internal Medicine-Endocrinology, Diabetes & Metabolism 11/28/20 Tacho Echavarria MD 1 [place] [address] Internal Medicine-Medical Oncology 11/12/23 Matt Ulrich MD 1 [place] [address] Surgery-Surgical Oncology 12/04/23 Eze Brock Pastoral Care 12/13/23 Annette Walker MSW Farm Implement Engine Mechanic 05/13/24 Batool Celis MD 1 [facility] [place] [address] Radiation Oncologist Radiology-Radiation Oncology 06/08/24 documented as of this encounter
--- OUTSIDE RECORDS SUMMARY | 2025-03-01 15:52 | XMS_ITS | Encounter Summary ---
Author Organization [place] [address] Care Team Providers Care Medical Apparatus Model Maker Name Role Phone Chetna Cedeno MD Primary Care Provider [phone] Arlyn Schmidt MD Unavailable [phone] Tacho Echavarria MD Unavailable [phone] Matt Ulrich MD Unavailable [phone] Eze Brock Unavailable Annette Walker Unavailable [phone] Batool Celis MD Unavailable [phone] Reason for Visit * Reason Onset Date Comments Other 02/03/2025 Pain pump meds Encounter Details Date Type Department Care Team (Late st Contact Info) Description 02/03/2025 Telephone [facility] [address] [address] Sin Tran MD [address] [place] [address] Other (Pain pump meds) Social History [...] in a intermediate (including now)? No 11/07/2023 [facility] IP Transportation Answer D [...] encounter Miscellaneous Notes * Telephone Encounter - Nazia Jensen - 02/03/2025 12:28 PM EDT Pain pump meds received for fill date 02/10/25 documented in this encounter Plan of Treatment Upcoming Encounters Date Type Department Care Team (Late st Contact Info) Description 03/09/2025 12:45 PM EDT Procedure visit [facility] [address] [place] [address] Samm Ledesma, LOGISTICS/SHIPPER [address] [facility] [facility] [address] [place] [address] 03/10/2025 12:30 PM EDT Appointment [place] [address] Tacho Echavarria MD [address] [place] [address] 03/10/2025 1:00 PM EDT Appointment [facility] [place] [address] Tacho Echavarria MD [address] [place] [address] 04/29/2025 9:15 AM EDT Appointment [place] [address] Batool Celis MD 1 [facility] [place] [address] 05/19/2025 2:15 PM EST Office Visit [facility] Sarah [address] [facility] [address] [place] [address] Sin Tran MD [facility] [place] [address] 08/12/2025 10:40 AM EST Appointment [facility] Women's Wellness [place] [facility] [place] [address] Matt Ulrich MD 20 [facility] 254 [place] [address] documented as of this encounter [...] as of this encounter Care Teams Medical Apparatus Model Maker Relationship Specialty [place] [address] [place] [address] PCP - General 06/21/10 Arlyn Schmidt MD [address] [place], [place] [phone] Consulting Physician Internal Medicine-Endocrinology, Diabetes & Metabolism 11/28/20 Tacho Echavarria MD 1 [place], [place] [phone] Internal Medicine-Medical Oncology 11/12/23 Matt Ulrich MD 1 [place], [place] [phone] Surgery-Surgical Oncology 12/04/23 Eze Brock Pastoral Care 12/13/23 Annette Walker, [employer] [place] Fruit Pitter 05/13/24 Batool Celis MD 1 [facility] [place] [address] Radiation Oncologist Radiology-Radiation Oncology 06/08/24 documented as of this encounter
--- NOTE | 2025-03-01 16:00 | HMH.EDGENADL ---
Discharge Plan Disposition Patient Disposition: Home, Self-Care Condition: Other Prescriptions Prescriptions: New dicyclomine 20 mg tablet 20 mg PO BID Qty: 30 0RF ondansetron 4 mg tablet,disintegrating 4 mg PO DAILY Qty: 30 0RF No Action exemestane 25 mg tablet 25 mg PO DAILY Qty: 30 5RF oxybutynin chloride 5 mg tablet extended release 24hr 5 mg PO DAILY Qty: 30 0RF duloxetine 30 mg capsule,delayed release(DR/EC) 30 mg PO DAILY Qty: 30 0RF rivaroxaban 20 mg tablet 20 mg PO DAILY Qty: 90 3RF ondansetron 8 mg tablet,disintegrating 8 mg PO TIDP PRN (Reason: Nausea And Vomiting) ropinirole 0.25 mg tablet 0.25 mg PO HS Verzenio 100 mg tablet 100 mg PO BID Nurtec ODT 75 mg tablet,disintegrating 75 mg PO DAILYP PRN (Reason: Migraine Headache) olanzapine 5 mg Tablet 5 mg PO DAILY losartan 50 mg tablet 50 mg PO DAILY omeprazole 40 mg capsule,delayed release(DR/EC) 40 mg PO DAILY ergocalciferol (vitamin D2) 1,250 mcg (50,000 unit) capsule 1,250 mcg PO WEEKLY Qulipta 60 mg tablet 60 mg PO DAILY tramadol 50 mg Tablet 50 mg PO Q6HP PRN (Reason: Moderate Pain (Scale Score 5-6)) metronidazole 500 mg tablet 500 mg PO BID 5 Days Qty: 10 0RF Referrals Follow up/Referrals: Provider,Referral, MD [Referring, Medical] - See instructions Activity Restrictions/Add. Instructions Additional Instructions/Restrictions: Take the Bentyl and Zofran as needed for pain control. If you have acute worsening symptoms not able to tolerate oral intake or if you have any other acute concerns and return to the emergency department. Clinical Impressions Clinical Impression: Chest pain Print Language Print Language: Turkish Discharge ED Provider: Sheridan Yanez Adult HPI General Chief complaint: Chest Pain Stated complaint: weakness Time Seen by Provider: 03/01/25 15:43 Mode of Arrival: EMS Source of Information: Patient Description of Symptoms (Recalled from ER Triage Doc. by RN): Patient presents to ED via EMS from home with c/o chest pain, SOA, lower abdominal pain, vomiting, dizziness, headache and diarrhea that started last night. Patient states she has breast cancer and is currently on PO chemo History of Present Illness HPI narrative: Patient is a 59-year-old female with a past medical history of breast cancer, on oral chemotherapy who follows here in [place] with oncology who presented to the emergency department with abdominal pain. Patient states that she is having intermittent lower abdominal pain. Patient does report some nonbloody diarrhea. Patient did have a couple episodes of vomiting. Patient reported some chest pain and shortness of breath. Patient states that she was on anticoagulation for pulmonary embolism but this was stopped on Saturday because tomorrow she is getting a biopsy in her breast. Patient denies any fevers. Patient denies any significant respiratory symptoms. Related Data Home Medications ?Medication ?Instructions ?Recorded ?Confirmed abemaciclib 100 mg tablet 100 mg PO BID 01/31/25 02/25/25 (Verzenio) atogepant 60 mg tablet (Qulipta) 60 mg PO DAILY 01/31/25 02/25/25 ergocalciferol (vitamin D2) 1,250 1,250 mcg PO WEEKLY 01/31/25 02/25/25 mcg (50,000 unit) capsule losartan 50 mg tablet 50 mg PO DAILY 01/31/25 02/25/25 olanzapine 5 mg tablet 5 mg PO DAILY 01/31/25 02/25/25 omeprazole 40 mg capsule,delayed 40 mg PO DAILY 01/31/25 02/25/25 release ondansetron 8 mg disintegrating 8 mg PO TIDP PRN Nausea And 01/31/25 02/25/25 tablet Vomiting rimegepant 75 mg disintegrating 75 mg PO DAILYP PRN Migraine 01/31/25 02/25/25 tablet (Nurtec ODT) Headache ropinirole 0.25 mg tablet 0.25 mg PO HS 01/31/25 02/25/25 tramadol 50 mg tablet 50 mg PO Q6HP PRN Moderate Pain 01/31/25 02/25/25 (Scale Score 5-6) Previous Rx's ?Medication ?Instructions ?Recorded metronidazole 500 mg tablet 500 mg PO BID 5 days #10 tabs 02/03/25 exemestane 25 mg tablet 25 mg PO DAILY #30 tabs 02/17/25 duloxetine 30 mg capsule,delayed 30 mg PO DAILY #30 caps 02/19/25 release oxybutynin chloride 5 mg 5 mg PO DAILY #30 tabs 02/19/25 tablet,extended release 24 hr rivaroxaban 20 mg tablet 20 mg PO DAILY #90 tabs 02/24/25 dicyclomine 20 mg tablet 20 mg PO BID #30 tabs 03/01/25 ondansetron 4 mg disintegrating 4 mg PO DAILY #30 tabs 03/01/25 tablet Allergies Allergy/AdvReac Type Severity Reaction Status Date / Time amoxicillin Allergy Severe Hives Verified 02/25/25 13:12 cefazolin Allergy Severe Hives Verified 02/25/25 13:12 hydromorphone (From Dilaudid) Allergy Intermediate Rash Verified 02/25/25 13:12 morphine Allergy Mild Rash Verified 02/25/25 13:12 lactose Allergy Difficulty Verified 02/25/25 13:12 Swallowing tree nut Allergy Anaphylaxis Verified 02/25/25 13:12 [facility] Disclaimer: The information contained in this section may have been updated after the patient was seen, as this information can be updated by other users. Medical History Migraine headache Pulmonary embolism Anxiety and depression GERD (gastroesophageal reflux disease) Hypertension Restless leg syndrome Vitamin D deficiency Breast cancer Social History Smoking Status: Never smoker alcohol intake: former current occupational status: other Travel in the last 8 weeks?: Inside the [place] Have you lived/traveled outside US in past 30 days?: No Contact w/someone who lives/traveled outside US past 30 days?: No Exposure to someone with infectious disease in past 14 days?: No Do you have a fever (greater than 100.4 F or 38 C)?: No Have you tested positive for COVID-19?: No Exposed to someone with COVID-19 in past 14 days?: No Do you have a sore throat?: No Do you have a cough?: No Do you have any weakness?: No Do you have any diarrhea?: No Are you experiencing any unusual bleeding?: No Do you have any muscle aches/pain?: No Do you have any abdominal pain?: No Are you experiencing loss of taste or smell?: No Other Medical History Have you received the Flu Vaccine for this season: No Have you received the Pneumonia Vaccine: No ROS Obtained: Yes All systems reviewed & no additional complaints except as documented and Yes Systems reviewed as appropriate & no additional complaints except as documented Physical Exam General General appearance: alert and in no apparent distress Head Head exam: atraumatic, normocephalic and normal inspection Eye Eye exam: Present normal appearance, PERRL and EOMI; Absent scleral icterus ENT ENT exam: Present normal exam and normal external ear exam Neck Neck exam: Present normal inspection and full ROM Chest Chest inspection: Present normal inspection and symmetric chest wall rise Respiratory Respiratory exam: Present normal lung sounds bilaterally; Absent respiratory distress or wheezes Cardiovascular Cardiovascular exam: Present regular rate, normal rhythm and normal heart sounds Abdominal Exam Abdominal exam: Present soft and distention; Absent tenderness, guarding or rebound Extremities Exam Extremities exam: Present normal inspection and full ROM Back Exam Back exam: Present normal inspection and full ROM Neurological Exam Neurological exam: Present alert and oriented X3 Psychiatric Psychiatric exam: Present normal affect and normal mood Skin Skin exam: Present warm and dry Medical Decision Making Medical Records Medical records reviewed: Yes I reviewed the patient's medical records. Screening: Per USPSTF and CDC recommendations, given the prevalence of disease in our region, it is our hospital?s policy to screen for HIV and viral Hepatitis for all patients aged 18 and over and those with ongoing risk factors. Josh Inquiry Pt receiving controlled substance: No Vital Signs: 03/01/25 15:36 03/01/25 16:00 03/01/25 16:30 Temperature 97.8 F Temperature Source Oral Pulse Rate 68 65 Pulse Rate [Left] 68 Respiratory Rate 17 23 22 Blood Pressure 135/93 H 133/86 Blood Pressure [Left Arm] 140/88 Blood Pressure Mean 106 100 Blood Pressure Mean [Left Arm] 105 02 Sat by Pulse Oximetry 100 98 98 Oxygen Delivery Method Room Air Room Air Room Air 03/01/25 17:00 03/01/25 17:30 03/01/25 18:00 Temperature Temperature Source Pulse Rate 70 76 Pulse Rate [Left] Respiratory Rate 25 H 12 18 Blood Pressure 134/82 121/81 123/86 Blood Pressure [Left Arm] Blood Pressure Mean 109 94 96 Blood Pressure Mean [Left Arm] 02 Sat by Pulse Oximetry 100 98 98 Oxygen Delivery Method 03/01/25 18:30 03/01/25 19:00 03/01/25 19:30 Temperature Temperature Source Pulse Rate 68 87 96 H Pulse Rate [Left] Respiratory Rate 19 16 20 Blood Pressure 138/82 128/88 132/93 H Blood Pressure [Left Arm] Blood Pressure Mean 100 99 102 Blood Pressure Mean [Left Arm] 02 Sat by Pulse Oximetry 100 98 98 Oxygen Delivery Method Room Air Room Air 03/01/25 19:59 03/01/25 20:00 03/01/25 20:30 Temperature 98.4 F Temperature Source Pulse Rate 95 H 97 H 97 H Pulse Rate [Left] Respiratory Rate 25 H 18 23 Blood Pressure 132/93 H 124/88 115/78 Blood Pressure [Left Arm] Blood Pressure Mean Blood Pressure Mean [Left Arm] 02 Sat by Pulse Oximetry 98 99 98 Oxygen Delivery Method 03/01/25 21:00 03/01/25 21:30 03/01/25 21:51 Temperature 98.4 F Temperature Source Pulse Rate 90 94 H 94 H Pulse Rate [Left] Respiratory Rate 19 25 H 25 H Blood Pressure 131/86 119/81 119/81 Blood Pressure [Left Arm] Blood Pressure Mean Blood Pressure Mean [Left Arm] 02 Sat by Pulse Oximetry 95 96 Oxygen Delivery Method Room Air Lab Data Lab results reviewed: Yes I reviewed the patient's lab results. Lab Results 03/01/25 16:00: WBC 7.8, RBC 3.68 L, Hgb 11.8 L, Hct 33.6 L, MCV 91.3, MCH 32.1 H, MCHC 35.1, RDW 13.5, Plt Count 253, MPV 8.9, Neut % (Auto) 82.0 H, Lymph % (Auto) 13.2, [place] % (Auto) 3.5, Eos % (Auto) 0.3, Baso % (Auto) 0.6, Neut # (Auto) 6.4, Lymph # (Auto) 1.0, [place] # (Auto) 0.3, Eos # (Auto) 0.0, Baso # (Auto) 0.1, PT 14.1 H, INR 1.29 H, Sodium 139, Potassium 3.1 L, Chloride 111 H, Carbon Dioxide 15 L, Anion Gap 16.1 H, BUN 14, Creatinine 1.00, Estimated Creat Clear 77, Estimated GFR 57 L, Est GFR ( Amer) 69, Glucose 110 H, Calcium 9.6, Phosphorus 2.5, Magnesium 1.7, Total Bilirubin 1.1, AST 24, ALT 11 L, Alkaline Phosphatase 106, Troponin I 0.06 H, Total Protein 6.9, Albumin 4.3, Globulin 2.6, Albumin/Globulin Ratio 1.7, Lipase 83 03/01/25 17:26: Stl C. cayetanensis PCR Not detected, Stool Rotavirus (PCR) Not detected, Stl Adenov F 40/41 PCR Not detected, Stool Astrovirus (PCR) Not detected, Stool Campylobacter PCR Not detected, Stl C.difficile Tox PCR Not detected, Stool Cryptosporidium PCR Not detected, Stl E.coli Shiga Tox PCR Not detected, Stool E coli O157 PCR Not detected, Stl Enterotoxigenic E PCR Not detected, Stool EPEC (PCR) Not detected, Stool EAEC (PCR) Not detected, Stl E. histolytica PCR Not detected, Stool Giardia Lamblia PCR Not detected, Stool Salmonella PCR Not detected, Stool Sapovirus (PCR) Not detected, Stl P. shigelloides PCR Not detected, Stl Shigella/EIEC PCR Not detected, St Y.enterocolitica PCR Not detected, Stool Vibrio (PCR) Not detected, Stl Vibrio cholerae PCR Not detected, Stl Norovirus GI/GII PCR Not detected 03/01/25 18:48: Troponin I < 0.01 03/01/25 20:11: Urine Color Yellow, Urine Appearance Clear, Urine pH 6.0, Ur Specific [place] 1.010, Urine Protein Negative, Urine Glucose (UA) Negative, Urine Ketones 2+, Urine Blood Negative, Urine Nitrate Negative, Urine Bilirubin 1+ A, Urine Urobilinogen 0.2, Ur Leukocyte Esterase Negative, Urine RBC None, Urine WBC 3-5, Ur Squamous Epith Cells 3-5, Urine Bacteria None 03/01/25 16:00 03/01/25 16:00 Orders (Tests/Meds): ED MEDICATIONS Discontinued Medications Generic Name Dose Route Start Last Admin Trade Name Freq PRN Reason Stop Dose Admin Sodium Chloride 1,000 mls @ 999 mls/hr 03/01/25 15:43 03/01/25 17:06 Sod Chlor 0.9% 1000ml Bag IV 03/01/25 16:43 Infused .Q1H1M ONE Infusion Iopamidol 70 ml 03/01/25 16:49 03/01/25 16:51 Iopamidol-370 (76%);100ml Bottle IV 03/01/25 16:50 70 ml ONCE ONE Administration Ondansetron HCl 4 mg 03/01/25 15:43 03/01/25 16:01 Ondansetron 4mg/2ml Vial IV 03/01/25 15:44 4 mg ONCE ONE Administration Potassium Chloride 80 meq 03/01/25 17:07 03/01/25 17:33 Potassium Chloride 20meq Tab PO 03/01/25 17:08 80 meq ONCE ONE Administration Sodium Chloride 10 ml 03/01/25 16:49 03/01/25 16:51 Sodium Chloride 0.9% 10ml Syr (Rad Only) IV 03/31/25 16:48 10 ml NEEDED PRN Administration Maintain IV Site Sodium Chloride 50 ml 03/01/25 16:49 03/01/25 16:50 0.9 % Sodium Chloride 50 Ml Vial IV 03/01/25 16:50 50 ml ONCE ONE Administration ORDERS Category Date Time Status CT abdomen pelvis w con Stat Cat Scan 03/01/25 15:[address] angio chest PE protocol Stat Cat Scan 03/01/25 15:43 Completed CBC w/Auto Diff [Complete Blood Count Auto Diff] Stat Lab 03/01/25 16:00 Completed CMP [Comprehensive Metabolic Panel] Stat Lab 03/01/25 16:00 Completed Diarrhea 23 Panel, PCR Stat Lab 03/01/25 17:26 Completed Lipase Stat Lab 03/01/25 16:00 Completed Magnesium Stat Lab 03/01/25 16:00 Completed PT INR [Prothrombin Time INR] Stat Lab 03/01/25 16:00 Completed Phosphorous Stat Lab 03/01/25 16:00 Completed Trop I [Troponin I] Stat Lab 03/01/25 16:00 Completed Troponin I Stat Lab 03/01/25 18:48 Completed UA [Urinalysis and Microscopic] Stat Lab 03/01/25 20:11 Completed UA [Urinalysis and Microscopic] Stat Lab 03/01/25 20:18 Ordered Blood Culture Stat Micro 03/01/25 16:27 Results Urine Culture Stat Micro 03/01/25 20:19 Ordered Urine Culture Stat Micro 03/01/25 20:19 Ordered Medical Decision Narrative: Patient is a 59-year-old female with a past medical history of breast cancer on oral chemotherapy who presented to the emergency department with abdominal pain nausea vomiting diarrhea as well as chest pain. On arrival, patient was hemodynamically stable with unremarkable vital signs. Differential includes but not limited to: Sepsis, neutropenia, pulmonary embolism, ACS/SD, intra-abdominal abscess, urinary tract infection, progression of cancer, bowel obstruction, amongst others. Patient's labs were reviewed and interpreted by myself: CBC showed no leukocytosis, hemoglobin was stable. INR mildly elevated at 1.29. CMP was unremarkable except for mildly decreased potassium at 3.1. Mild late elevated anion gap. Initial troponin 0.06, second troponin less than 0.01. UA had no bacteria 3-5 whites no leuk esterase no nitrites. Patient's EKG was reviewed and interpreted by myself and showed normal sinus rhythm at [address] or T wave changes concerning for ischemia CT of the chest and abdomen were obtained which were reviewed and interpreted by myself and showed no acute pathology. On reevaluation, patient had very minimal pain, at this time given patient's otherwise unremarkable workup I felt the patient was appropriate for discharge home. Patient has a follow-up with oncology in the morning. Patient was discharged home in stable condition return precautions were discussed. Critical Care Critical Care Time Critical Care Time: No
[2025-03-01] MEDS: ONDANSETRON 4MG/2ML VIAL 4 MG IV (16:01)
[2025-03-01] MEDS: 0.9 % SODIUM CHLORIDE 1000ML 1,000 ML 999 ML IV (16:01)
[2025-03-01 16:18] LABS: Albumin Level 4.3 g/dl (3.5-5.0); Chloride 111 mmol/L (98-107); Hematocrit 33.6 % (37.0-47.0); Hemoglobin 11.8 g/dL (12.2-16.2); Immature Granulocytes % 0.4 %; Mean Corpuscular HGB Conc 35.1 g/dL (31.8-35.4); Mean Corpuscular Hemoglobin 32.1 pg (27.0-31.2); Mean Corpuscular Volume 91.3 fl (81-99); Nucleated Red Blood Cells % 0 %; Platelet Count 253 K/mm3 (142-424); Potassium 3.1 mmoL/L (3.5-5.1); Red Blood Count 3.68 M/mm3 (4.20-5.40); Red Cell Distribution Width-SD 45.6 fL; Sodium 139 mmol/L (136-145); White Blood Count 7.8 K/mm3 (4.8-10.8)
[2025-03-01 16:20] LABS: Lipase 83 U/L (23-300)
[2025-03-01 16:21] LABS: Alanine Aminotransferase 11 U/L (12-78); Albumin/Globulin Ratio 1.7 (1.1-1.8); Alkaline Phosphatase 106 U/L (38-126); Anion Gap 16.1 mEq/L (5-15); Aspartate Amino Transferase 24 U/L (14-36); Bilirubin,Total 1.1 mg/dl (0.2-1.3); Blood Urea Nitrogen 14 mg/dl (7-17); Carbon Dioxide 15 mmol/L (22.0-30.0); Creatinine Clearance Estimated 77 mL/min (50-200); Creatinine,Serum 1.00 mg/dl (0.52-1.04); Estimated Glomerular Filt Rate 57 ml/min (>60); GFR (African American) 69 ML/MIN (>60); Globulin 2.6 g/dL (1.3-3.2); Total Protein,Serum 6.9 g/dl (6.3-8.2)
[2025-03-01 16:22] LABS: Calcium 9.6 mg/dl (8.4-10.2); Glucose 110 mg/dl (74-100)
[2025-03-01 16:25] LABS: INR 1.29 (0.9-1.1); Prothrombin Time 14.1 seconds (10.1-12.5)
[2025-03-01 16:33] LABS: Troponin I 0.06 ng/ml (0.00-0.034)
--- NOTE | 2025-03-01 16:39 | PC.NURSE ---
pt asking to s/w Dr Yanez regarding ct/radiation concerns per radio tester. Dr Yanez notified of this.
--- NOTE | 2025-03-01 16:40 | PC.NURSE ---
Dr Yanez at bedside
[2025-03-01] MEDS: 0.9 % SODIUM CHLORIDE 50 ML VIAL IV (16:50)
[2025-03-01] MEDS: SODIUM CHLORIDE 0.9% 10ML SYR (RAD ONLY) 10 ML IV (16:51)
[2025-03-01] MEDS: IOPAMIDOL-370 (76%);100ML BOTTLE 70 ML IV (16:51)
[2025-03-01] MEDS: POTASSIUM CHLORIDE 20MEQ TAB 80 MEQ PO (17:33)
[2025-03-01 17:42] LABS: Adenovirus F 40/41, stool Not Detected (NotDetected); Clostridium Difficile A/B, PCR Not Detected (NotDetected); Cyclospora Cayetanesis Not Detected (NotDetected); Plesimonas Shigalloides, PCR Not Detected (NotDetected); Salmonella, PCR Not Detected (NotDetected); Shiga-like toxin E coli Not Detected (NotDetected); Shigella Enterovasive E coli Not Detected (NotDetected); Vibrio, PCR Not Detected (NotDetected); Yersinia Entercolitica, PCR Not Detected (NotDetected)
[2025-03-01 18:04] LABS: Magnesium 1.7 mg/dl (1.6-2.3); Phosphorous 2.5 mg/dl (2.5-4.5)
--- NOTE | 2025-03-01 18:55 | ECG_ITS ---
APPROVED REPORT Exam: Resting ECG HR:77 bpm ECG Measurements Heart Rate 77 AXES DC 182 P 43 QRSd 102 QRS 28 QT 394 T 40 QTc 425 Conclusion SINUS RHYTHM INFERIOR MYOCARDIAL INFARCTION , PROBABLY OLD [40+ ms Q WAVE AND/OR ST/T ABNORMALITY IN II/aVF] ABNORMAL ECG UNCONFIRMED REPORT Electronically signed by : MOISES SANCHEZ, 03/01/2025 23:16:51
[2025-03-01 19:55] LABS: Troponin I < 0.01 ng/ml (0.00-0.034)
--- NOTE | 2025-03-01 20:11 | PC.NURSE ---
Pt notified of need of UA. PT stated she has no need to urinate.
[2025-03-01 20:20] LABS: Microscopic, Urine URINE MICROSCOPIC (MICROSCOPIC)
[2025-03-01 20:40] LABS: Color,Urine YELLOW (Yellow); Glucose,Urine (UA) Negative (Negative); Ketones,Urine 2+ (Negative); Leukocyte Esterase,Urine Negative (Negative); PH,Urine 6.0 (5.0-8.5); Protein,Urine Negative (Negative); Specific Gravity, Urine 1.010 (1.005-1.030); Urobilinogen,Urine 0.2 EU/dl (0.2)
[2025-03-01 20:45] LABS: Bilirubin,Urine 1+ (Negative)
--- NOTE | 2025-03-01 21:49 | PC.NURSE ---
PT ambulated per self with stand by assistance to lobby by Ramsey Mathew.
== END 2025-03-01 21:51 | disposition home or self-care (01) ==
PROVIDERS: Emergency Provider Student in an Organized Health Care Education/Training Program; PCP Family Medicine
DX: R07.9 Chest pain, unspecified (principal); I10 Essential (primary) hypertension; F41.9 Anxiety disorder, unspecified; E87.6 Hypokalemia
CPT/HCPCS: 71275; 74177; 80053; 81001; 83690; 83735; 84100; 84484; 85025; 85610; 87040; 87086; 87507; 93005; 96361; 96374; 99285; J2405; J7030; Q9967

== ENCOUNTER 2025-03-02 07:09 | Outpatient (CLI) | payer MEDICAID, SELFPAY ==
--- OUTSIDE RECORDS SUMMARY | 2025-01-02 16:26 | XMS_ITS | Encounter Summary ---
Author Organization [facility] SBO AND TP P Address [facility] [place] [address] Phone Care Team Providers Care Cloth Grader Name Role Phone Chetna Cedeno MD Primary Care Provider [phone] Reason for Visit * Reason Comments Heat Exposure Patient arrives via EMS from an event outside, states she was in [facility] and felt lightheaded, went to a [...] EDT - 01/02/2025 7:27 PM EDT Emergency [facility] Emergency Department [address] [place] [id number] [place] [address] [place] [address] Heat exhaustion, unspecified, initial encounter [T67.5XXA] Discharge [...] Care Everywhere. * POTASSIUM CONTENT OF FOODS (ROMANIAN) documented in this encounter Medications at Time [...] be directed to the Care Management Departments: [facility] [phone] or [facility] [phone] or [facility] [phone]. documented in this encounter ED Notes * Dallin Espinoza MD - 01/02/2025 4:48 PM EDT Images from the original note were not included. [facility] EMERGENCY DEPARTMENT ED Encounter Arrival Date: 01/02/251624 Meri Cole : 1965 [address] [place] [address] CSN: [id number] GIO: [id number] EMERGENCY DEPARTMENT - GENERAL NOTE CHIEF COMPLAINT Chief Complaint Patient presents with Heat Exposure Patient arrives via EMS from an event outside, states she was in [facility] and felt lightheaded,went to a tent [...] Resource Strain: Low Risk (07/07/2024) Received from [facility] Overall Financial Resource Strain (CARDIA) Difficulty of Paying Living Expenses: Not very hard Food Insecurity: No Food Insecurity (07/07/2024) Received from [facility] Hunger Vital Sign Worried About Running Out of Food in the Last Year: Never true Ran Out of Food in the Last Year: Never true Transportation Needs: No Transportation Needs (07/07/2024) Received from [facility] IP Transportation In the past 12 months, has lack of reliable transportation kept you from medical appointments, meetings, work or from getting things needed for daily living?: No Physical Activity: Insufficiently Active (07/07/2024) Received from [facility] Exercise Vital Sign Days of Exercise per Week: 3 days Minutes of Exercise per Session: 40 min Stress: Stress Concern Present (07/07/2024) Received from [facility] [place] of Occupational Health - Occupational Stress Questionnaire Feeling of Stress : Rather much Social Connections: Socially Isolated (11/07/2023) Received from [facility] Social Connection and Isolation Panel [NHANES] Frequency of Communication with Friends and Family: Once a week Frequency of Social Gatherings with Friends and Family: Once a week Attends Episcopal Services: 1 to 4 times per year Active Member of Clubs or Organizations: No Attends Club or Organization Meetings: Never Marital Status: Never Housing Stability: High Risk (11/07/2023) Received from [facility] Housing Stability Vital Sign Unable to [...] 428 ms QTcF 417 ms QRS Horizontal [place] -19 deg QRS AXIS 16 deg I-40 Horizontal [place] 46 deg I-40 FRONT AXIS -17 deg T-40 Horizontal [place] -50 deg T-40 Front [place] 51 deg T Horizontal [place] 52 deg T WAVE AXIS 16 deg S-T Horizontal [place] 60 deg S-T Front [place] 24 deg ECG IMPRESSION - BORDERLINE ECG - ECG IMPRESSION SR-Sinus rhythm-normal P axis, V-rate 50-99 ECG IMPRESSION LVHVP-Probable left ventricular hypertrophy-multiple LVH criteria ECGGUID [id number] CBC w/ Diff Collection Time: 01/02/25 5:13 [...] an event outside, states she was in [facility] and felt lightheaded,went to a tent [...] out of the sun in the heat. [place] dizzy lightheaded. Does feel slightly better after [...] Chetna Cedeno MD Family Medicine As needed [facility] [place] [address] [place] [address] Please note that some or all of this record was generated using voice recognition software. If there are any questions about the content of this document, please contact the author as some errors in admission nurse coordinator may have occurred. Dallin Espinoza MD 01/02/25 1837 Dallin Espinoza MD 01/02/25 1848 * Rylie Darby Registered Nurse - 01/02/2025 4:30 PM EDT Triage Note Meri Cole presents to [facility] with complaint(s) of Heat Exposure (Patient arrives via EMS froman event outside, states she was in [facility] and felt lightheaded, went to a [...] (ABNORMAL) BAMP (Na,K,Cl,CO2,Glu,BUN,Creat,Ca) (01/02/2025 5:13 PM EDT) [facility] BLD [place]REA NITROGEN 16 8 - 26 mg/dL [place]MISTR[facility] [place] SODIUM 140 135 - 145 mmol/L [facility] [place] POTASSIUM 3.2(L) 3.6 - 5.1 mmol/L [facility] [place] CHLORIDE 107 98 - 111 mmol/L [facility] [place] CO2 20(L) 21 - 31 mmol/L [facility] [place] GLUCOSE, RANDOM 89 70 - 99 mg/dL [facility] [place] CREATININE 1.06 0.60 - 1.20 mg/dL [facility] [place] ANION GAP 13 4 - 16 mmol/L [facility] [place] CALCIUM 9.0 8.5 - 10.4 mg/dL [facility] [place] ESTIMATED GFR 61 >59 mL/min/1.7 3 m2 [facility] [place] Comment: Estimated GFR was calculated using the CKD-EPI cr (2020) equation refit without race. The equation is recommended by the National Kidney Foundation - [place] Society of Nephrology Task Force. Tested at [address] [address] Whole Blood 01/02/2025 5:13 PM EDT 01/02/2025 5:25 PM EDT Dallin Espinoza MD LAB BLOOD ORDERABLES Final Result [facility]OR[facility] [address] [place] [address] [address] * (ABNORMAL) CBC w/ Diff (01/02/2025 5:13 PM EDT) [facility] WBC 7.1 3.6 - 10.5 THOU/mcL [place] [place] RBC 3.75(L) 3.80 - 5.20 MIL/mcL [facility] [place] HEMOGLOBIN 11.2(L) 12.0 - 15.2 g/dL [facility] [place] HEMATOCRIT 33.6(L) 36 - 46 % [facility] [place] MCV 89.6 82 - 97 fL [facility]MI[facility] [place] MCH 30.0 27 - 33 pg [facility]MI[facility] [place] MCHC 33.5 32 - 36 g/dL [facility] [place] RDW 16.0 12.3 - 17.0 % [place]MI[place] [place] PLATELET 206 140 - 375 THOU/mcL [facility]MI[facility] [place] MPV 6.9(L) 7.0 - 11.5 fL [facility]MI[facility] [place] ABS. NEUTROPHIL 3.60 1.80 - 7.70 THOU/mcL [facility]MI[facility] [place] ABS LYMPHS 3.00 1.00 - 4.00 THOU/mcL [facility]MI[facility] [place] ABS MONOS 0.30 0.20 - 0.90 THOU/mcL [facility]MI[facility] [place] ABS EOS 0.10 0.03 - 0.45 THOU/mcL [facility]MISTR[facility] [place] ABS BASOS 0.10 0.00 - 0.20 THOU/mcL CHEMISTR[facility] [place] SEGS 51 % [facility]MI[facility] [place] LYMPHOCYTES 43 % CHEMISTR Y NORTH MONOCYTES 4 % CHEMISTR[facility] [place] EOSINOPHIL 1 % [facility]MI[facility] [place] BASOPHILS 1 % [facility]STR[facility] [place] Comment:Tested at [facility] [address] [place] [address] Whole Blood 01/02/2025 5:13 PM EDT 01/02/2025 5:25 PM EDT Dallin Espinoza MD LAB BLOOD ORDERABLES Final Result [facility] [address] [place] [address] [address] * ECG 12 lead (01/02/2025 4:37 PM [...] QTcF 417 ms TH TRACEMASTER QRS Horizontal [place] -19 deg TH TRACEMASTER QRS AXIS 16 deg TH TRACEMASTER I-40 Horizontal [place] 46 deg TH TRACEMASTER I-40 FRONT AXIS -17 deg TH TRACEMASTER T-40 Horizontal [place] -50 deg TH TRACEMASTER T-40 Front [place] 51 deg TH TRACEMASTER T Horizontal [place] 52 deg TH TRACEMASTER T WAVE AXIS 16 deg TH TRACEMASTER S-T Horizontal [place] 60 deg TH TRACEMASTER S-T Front [place] 24 deg TH TRACEMASTER ECG IMPRESSION - BORDERLINE ECG - TH TRACEMASTER ECG IMPRESSION SR-Sinus rhythm-normal P axis, V-rate 50-99 TH TRACEMASTER ECG IMPRESSION LVHVP-Probable left ventricular hypertrophy-mul tiple LVH criteria TH TRACEMASTER ECGGUID [id number] TH TRACEMASTER 01/02/2025 4:37 PM EDT Dallin [...] Raymundo) documented in this encounter Care Teams Cloth Grader Relationship Specialty Start Date End Date Chetna Cedeno MD [facility] [address] [place] [address] PCP - General Family Medicine 01/02/25 documented as of this encounter
--- OUTSIDE RECORDS SUMMARY | 2025-01-06 12:56 | XMS_ITS | Encounter Summary ---
Author Organization [place] [address] Care Team Providers Care Cabinet Worker Name Role Phone Chetna Cedeno MD Primary Care Provider [phone] Arlyn Schmidt MD Unavailable [phone] Tacho Echavarria MD Unavailable [phone] Matt Ulrich MD Unavailable [phone] Eze Brock Unavailable Annette Walker Unavailable [phone] Batool Celis MD Unavailable [phone] Encounter Details Date Type Department Care Team (Latest Contact Info) Description 01/06/2025 12:56 PM EDT - 01/06/2025 1:13 PM EDT Hospital Encounter [facility] [place], [place] [id number] Tacho Echavarria MD [address] [place] [address] [id number] Invasive ductal carcinoma of breast, female, right [...] doctor or pharmacy? Never 11/07/2023 [facility] Utilities Answer Date Recorded In the past [...] any clubs o r organizations such as confucianism groups, unions, fraternal or athletic groups, or [...] Date Recorded PHQ-2 Total Score 5 07/07/2024 [facility] - Occupational [...] time in the past 12 m [facility], were you homeless or living in a halfway (including now)? No 11/07/2023 [facility] IP Transportation Answer D ate Recorded [...] 4 fluticasone propionate (FLONASE) 50 mcg/actuation Nasl [place], Suspension 1 [place] by Nasal route daily. 1 Each 11 4 Inhalational Spacing Device (AEROCHAMBER MV) Misc Spacer 1 Each by [facility].(Non-Drug; Combo Route) route as needed. 1 Device [...] EDT Procedure visit [facility] [address] [facility] [address] [place] [address] Samm Ledesma, LEYLA [address] [facility] [address] [place] [address] 03/10/2025 12:30 PM EDT Appointment [place] [address] Tacho Echavarria MD [address] [place] [address] 03/10/2025 1:00 PM EDT Appointment [facility] Medical On[facility] [place], [place] [id number] Tacho Echavarria MD [address] [place] [address] 04/29/2025 9:15 AM EDT Appointment [facility] RAD ONC [place], [place] [id number] Batool Celis MD [address] [facility] [address] [place] [address] 05/19/2025 2:15 PM EST Office Visit [facility] [place] [address] [facility] [address] [facility] [address] [place] [address] Sin Tran MD [address] [place] [address] [place] [address] 08/12/2025 10:40 AM EST Appointment [facility] Women's Wellness [facility] [place] [id number] Matt Ulrich MD [address] [facility] 254 [place] [address] documented as of this encounter Goals Goal Patient Goal Type Associated Problems Recent Progress Patient-Stated? Author Blood Pressure < 140/90 Blood Pressure 121/77(02/04 2:04 PM EDT) No Chetna Cedeno MD Breast [facility] Breast Health On track(2024 11:27 AM EDT) No Jasmin Porter, RAUL Note: Patient acknowledges understanding of new diagnosis, plan of care, available resources and how to contact Nurse Navigator with any future questions or concerns. Breast [facility] Breast Health Not on track(2024 11:27 AM [...] documented as of this encounter Care Teams Cabinet Worker Relationship Specialty [place] [address] [place] [address] PCP - General 06/21/10 Arlyn Schmidt MD [address] [place] [address] Consulting Physician Internal Medicine-Endocrinology, Diabetes & Metabolism 11/28/20 Tacho Echavarria MD 1 [place] [address] Internal Medicine-Medical Oncology 11/12/23 Matt Ulrich MD 1 [place] [address] Surgery-Surgical Oncology 12/04/23 Eze Brock Pastoral Care 12/13/23 Annette Walker MSW Outsole Caser 05/13/24 Batool Celis MD [address] [place] [address] [place] [address] Radiation Oncologist Radiology-Radiation Oncology 06/08/24 documented as of this encounter
--- OUTSIDE RECORDS SUMMARY | 2025-01-06 13:14 | XMS_ITS | Encounter Summary ---
Author Organization [place] [address] Care Team Providers Care Impregnator Helper Name Role Phone Chetna Cedeno MD Primary Care Provider [phone] Arlyn Schmidt MD Unavailable [phone] Tacho Echavarria MD Unavailable [phone] Matt Ulrich MD Unavailable [phone] Eze Brock Unavailable Annette Walker Unavailable [phone] Batool Celis MD Unavailable [phone] Reason for Visit * Reason Comments Follow-up Breast Cancer Encounter Details Date Type Department Care Team (Latest Contact Info) Description 01/06/2025 1:14 PM EDT - 01/06/2025 11:59 PM EDT Hospital Encounter Cancer [place] [address] Tacho Echavarria MD [address] [place] [address] [phone] Invasive ductal carcinoma of breast, female, right [...] from your doctor or pharmacy? Never 11/07/2023 [facility] Utilities Answer Date Recorded In [...] often do you attend chur ch or druze services? 1 to 4 times per year 11/07/2023 Do you belong to any clubs o r organizations such as sabianism groups, unions, fraternal or athletic groups, or [...] Date Recorded PHQ-2 Total Score 5 07/07/2024 [facility] [place] of Occupat ional Health - Occupational Stress [...] a senior living (including now)? No 11/07/2023 [facility] IP Transportation Answer D ate [...] 4 fluticasone propionate (FLONASE) 50 mcg/actuation Nasl [place], Suspension 1 [place] by Nasal route daily. 1 Each 11 [...] note were not included. Patient: [facility]: [id number] Date of : 1965 Age: 59 y.o. Date of Service: 01/06/2025 HEMATOLOGY/ONCOLOGY FOLLOW UP VISIT Primary Airplane Cabin Attendant & Oncologist: Tacho Echavarria MD. Patient Care Team: Chetna Cedeno MD as PCP - General [facility] MD as Consulting Physician (Internal Medicine-Endocrinology, Diabetes & Metabolism) Tacho Echavarria MD (Internal Medicine-Medical Oncology) Matt Ulrich MD (Surgery-Surgical Oncology) Eze Brock as Pastoral Care Annette Walker MSW as Reference Library Assistant Batool Celis MD as Radiation Oncologist (Radiology-Radiation Oncology) [address] [facility] EVAL: [place], [place]: Dr Cota Chambers: [phone] Next of Kin: Daughter Ruthy Man ([phone]) Patient Contact info: [phone] DIAGNOSIS HISTORY DATE OF INITIAL CONSULTATION: 11/14/23; outside 2nd opinion at on 09/23/2024 CURRENT TREATMENT BREAST CA: adjuvant [place]-E regimen: Arimidex 1mg po daily + dose [...] Invasive ductal carcinoma grade 3 ER 92% IL 55% HER2 Negative HER-2 by FISH NEGATIVE [...] to GI tolerance for 2 yr planned ([place]-E regimen) Stage Clinical Stage IIIB (cT3, cN3a(f), cM0, G3, ER+, IL+, HER2-) Pathologic Stage ypT3, ypN3a, G3, ER+, IL+, HER2- Right breast cancer with T3 tumor, [...] CalcPt Dosage Given to Date in Gy [id number] Session Dosage Given in Gy 2.09788675 Reference Point ID LN Boost RP Dosage Given to Date in Gy 10 Session Dosage Given in Gy 1.00403188 Reference Point ID [id number] ISO Dosage Given to Date in Gy 40.75418550 Session Dosage Given in Gy 0.40199168 Plan ID Nd Boost Plan Name Nd [...] > 5 YEARS 11/29/2023 Joselito Goodwin MD [facility] IR LUMBAR DISC SURGERY 09/11/2012 LUMBAR LAMINECTOMY & DISCECTOMY L4-5 LEFT ; Surgeon: Hetal Borden MD; MASTECTOMY Right 07/06/2024 Right modified radical mastectomy; Surgeon: Matt Ulrich MD; Location: [facility] MAIN OR; Service:General SPINE SURGERY N/A 01/04/2021 PAIN PUMP PERMANENT IMPLANT; Surgeon: Munir Hilton MD; Location: [facility] MAIN OR; Service: Pain Management THORACIC SPINE SURGERY N/A 02/24/2020 SPINAL CORD STIMULATOR IMPLANT; Surgeon: Munir Hilton MD; Location: [facility] MAIN OR; Service: Pain Management TONSILLECTOMY UPPER GASTROINTESTINAL ENDOSCOPY UPPER GASTROINTESTINAL ENDOSCOPY N/A 01/26/2015 ESOPHAGOGASTRODUODENOSCOPY with biopsy and davis dilation; Surgeon: Stone Cronin MD; Location: [facility] ENDOSCOPY; Service: Endoscopy FAMILY HISTORY Family History [...] op ddAC/Taxane chemo for her high risk ER/IL positive large RIGHT BREAST Carcinoma. She has [...] having completed adjuvant Radiation, while on the [facility] adjuvant therapy treatment approach. Update (01/06/2025): Ms [...] Device fluticasone propionate (FLONASE) 50 mcg/actuation Nasl [place], Suspension Inhalational Spacing Device (AEROCHAMBER MV) Misc [...] Gran% 0.2 % Lymph Percent 28.1 % [place] Percent 4.3 % Eos Percent 1.8 % Baso Percent 0.4 % Neut # 3.3 1.6 - 6.1 x10(3)/mcL IMMGRAN# 0.0 0.0 - 0.1 x10(3)/mcL Lymph # 1.4 1.2 - 3.9 x10(3)/mcL [place] # 0.2 (L) 0.3 - 0.9 x10(3)/mcL [...] G43.719-Chronic migraine without aura, intractable, without status [id number]. COMPARISON: Multiple priors with the latest MRI [...] Oliva MD Performing Provider Shaylee Roque???LOUIE Restrepo NUCLEAR [employer]APONS CUSTODIAN Viv Martinez RN Parole Board Member Madelyn Sidhu RN Endoscopy Nurse Aliya Friedman [...] outside facility Neurosurgeon (Dr Benoit Duke at [facility]) and no need for surgical resection [...] if any questions about Mrs Cole's care. aTcho Echavarria MD Hematology and Medical Oncology [facility] [phone] *This note was dictated using voice recognition [...] also performed on this calendar day: d/w Retort Furnace Helper about her care and symptom burden/depression documented in this encounter Plan of Treatment Upcoming Encounters Date Type Department Care Team (Late st Contact Info) Description 03/09/2025 12:45 PM EDT Procedure visit [facility] [address] [place] [address] Samm Ledesma, ROD MILL OPERATOR [address] [facility] [address] [place] [address] 03/10/2025 12:30 PM EDT Appointment [place] [address] Tacho Echavarria MD [address] [place] [id number] 03/10/2025 1:00 PM EDT Appointment [facility] [place] [address] Tacho Echavarria MD [address] [place] [address] [phone] 04/29/2025 9:15 AM EDT Appointment [facility] [place] [address] Batool Celis MD [address] [place] [address] [place] [address] 05/19/2025 2:15 PM EST Office Visit [facility] [address] [place] [phone] Sin Tran MD [address] [place] [phone] 08/12/2025 10:40 AM EST Appointment [facility] [place] [address] Matt Ulrich MD [address] [place] [address] [address] [place] [address] documented as of this encounter Goals Goal [...] Navigator with any future questions or concerns. [facility] Not on track(2024 11:27 AM EDT) No [...] MISC COMMENT Tiago 01/07/2025 7:35 AM EDT [facility] Blood VENOUS STRUCTURE / Unknown Port / Unknown 01/06/2025 1:13 PM EDT 01/07/2025 7:31 AM EDT us Tacho Echavarria MD HEMATOLOGY ORDERABLES Final Result [facility] [address] [place] [address] * IRON+TIBC (01/06/2025 1:13 PM EDT) Pathologist [facility] Iron 78 30 - 160 mcg/dL [...] Final Result [facility] [address] [facility], [place] [address] * VITAMIN B12/ FOLIC ACID (01/06/2025 1:13 PM EDT) Pathologist [facility] Vitamin B12 305 232 - 1,245 pg/mL 01/06/2025 2:55 PM EDT [facility] Folate 15.80 >=4.80 ng/mL 01/06/2025 2:55 PM EDT [facility] Blood VENOUS STRUCTURE / Unknown Port / Unknown 01/06/2025 1:13 PM EDT 01/06/2025 1:17 PM EDT Narrative [facility] - 01/06/2025 2:55 PM EDT Ingestion of haroon doses of biotin (>5 mg/day) taken within 8 hours of drawing blood sample can interfere with this immunoassay test. us Tacho Echavarria MD CHEMISTRY ORDERABLES Final Result [facility] [address] [facility] , [address] [place] [id number] * (ABNORMAL) COMPREHENSIVE METABOLIC PANEL (01/06/2025 1:13 PM EDT) Sodium 140 136 - 145 mmol/L 01/06/2025 1:37 PM EDT [facility] Potassium 3.8 3.5 - 5.0 mmol/L 01/06/2025 1:37 PM EDT [facility] Chloride 108(H) 98 - 107 mmol/L 01/06/2025 1:37 PM EDT [facility] Total CO2 22 22 - 29 mmol/L 01/06/2025 1:37 PM EDT [facility] Anion Gap 10 7 - 16 mmol/L 01/06/2025 1:37 PM EDT [facility] Calcium 9.2 8.6 - 10.4 mg/dL 01/06/2025 1:37 PM EDT [facility] Glucose Lvl 121(H) 70 - 99 mg/dL 01/06/2025 1:37 PM EDT [facility] BUN 16 6 - 20 mg/dL 01/06/2025 1:37 PM EDT [facility] Creatinine 0.83 0.51 - 1.30 mg/dL 01/06/2025 1:37 PM EDT [facility] Albumin 4.0 3.5 - 5.2 gm/dL 01/06/2025 1:37 PM EDT [facility] Total Protein 6.6 6.4 - 8.3 gm/dL 01/06/2025 1:37 PM EDT [facility] Bili Total 0.4 0.2 - 1.3 mg/dL 01/06/2025 1:37 PM EDT [facility] ALT 9 <=41 U/L 01/06/2025 1:37 PM EDT [facility] AST 14 <=40 U/L 01/06/2025 1:37 PM EDT [facility] Alk Phos 127(H) 36 - 123 U/L 01/06/2025 1:37 PM EDT [facility] eGFR (CKD-EPIcr 2020) 82 >=60 mL/min/1.7 3 m2 01/06/2025 1:37 PM EDT [facility] Comment:Estimated GFR was ca lculated using the CKD-EPIcr (2020) equation refit without race. The equation is recommended by the National Kidney Foundation - [place] [employer] of Nephrology Task Force. Blood VENOUS STRUCTURE / Unknown Port / Unknown 01/06/2025 1:13 PM EDT 01/06/2025 1:17 PM EDT Tacho Echavarria MD CHEMISTRY ORDERABLES Final Result [facility] [address] [place] [id number] * (ABNORMAL) CBC WITH DIFF (01/06/2025 1:13 PM EDT) WBC 5.1 3.7 - 10.3 x10(3)/mc L 01/06/2025 1:22 PM EDT [facility] RBC 3.61(L) 3.90 - 5.20 x10(6)/mc L 01/06/2025 1:22 PM EDT [facility] Hgb 11.0(L) 11.2 - 15.7 g/dL 01/06/2025 1:22 PM EDT [facility] Hct 33.2(L) 34.0 - 45.0 % 01/06/2025 1:22 PM EDT [facility] MCV 92.0 80.0 - 100.0 fL 01/06/2025 1:22 PM EDT [facility] MCH 30.5 26.0 - 34.0 pg 01/06/2025 1:22 PM EDT [facility] MCHC 33.1 30.7 - 35.5 g/dL 01/06/2025 1:22 PM EDT [facility] RDW 14.5 <=14.9 % 01/06/2025 1:22 PM EDT [facility] Platelet 170 155 - 369 x10(3)/mc L 01/06/2025 1:22 PM EDT [facility] MPV 8.8 8.8 - 12.5 fL 01/06/2025 1:22 PM EDT [facility] Neut # Prelim 3.3 1.6 - 6.1 x10(3)/mc L 01/06/2025 1:22 PM EDT [facility] Comment:Preliminary automate d absolute neutrophil count. Value may change if manual differential is indicated. Neut Percent 65.2 % 01/06/2025 1:22 PM EDT [facility] Comment:Neutrophils equals s egs plus bands Imm Gran% 0.2 % 01/06/2025 1:22 PM EDT [facility] Comment:Automated count of m etamyelocytes, myelocytes and promyelocytes. Lymph Percent 28.1 % 01/06/2025 1:22 PM EDT [facility] [place] Percent 4.3 % 01/06/2025 1:22 PM EDT [facility] Eos Percent 1.8 % 01/06/2025 1:22 PM EDT [facility] Baso Percent 0.4 % 01/06/2025 1:22 PM EDT [facility] Neut # 3.3 1.6 - 6.1 x10(3)/mc L 01/06/2025 1:22 PM EDT [facility] Comment:Neutrophils equals s egs plus bands IMMGRAN# 0.0 0.0 - 0.1 x10(3)/mc L 01/06/2025 1:22 PM EDT [facility] Comment:Automated count of m etamyelocytes, myelocytes and promyelocytes. An absolute IG <0.1 is reported as 0.0. Lymph # 1.4 1.2 - 3.9 x10(3)/mc L 01/06/2025 1:22 PM EDT [facility] [place] # 0.2(L) 0.3 - 0.9 x10(3)/mc L 01/06/2025 1:22 PM EDT [facility] Eos# 0.1 0.0 - 0.5 x10(3)/mc L 01/06/2025 1:22 PM EDT [facility] Baso # 0.0 0.0 - 0.1 x10(3)/ L 01/06/2025 1:22 PM EDT [facility] Blood VENOUS STRUCTURE / Unknown Port / Unknown 01/06/2025 1:13 PM EDT 01/06/2025 1:17 PM EDT us Tacho Echavarria MD HEMATOLOGY ORDERABLES Final Result [address] [address] * MISCELLANEOUS LAB (01/06/2025 1:13 PM EDT) MISC RON Ordoñez 01/07/2025 7:34 AM EDT [facility] Blood VENOUS STRUCTURE / Unknown Port / Unknown 01/06/2025 1:13 PM EDT 01/07/2025 7:31 AM EDT us Tacho Echavarria MD HEMATOLOGY ORDERABLES Final Result [address] [id number] documented in this encounter Visit Diagnoses Diagnosis [...] documented as of this encounter Care Teams Impregnator Helper Relationship Specialty [place] [address] [place] [phone] PCP - General 06/21/10 Arlyn Schmidt MD [address] [place], [place] [id number] Consulting Physician Internal Medicine-Endocrinology, Diabetes & Metabolism 11/28/20 Tacho Echavarria MD [address] [place] [address] Internal Medicine-Medical Oncology 11/12/23 Matt Ulrich MD 1 [place] [address] Surgery-Surgical Oncology 12/04/23 Eze Brock Pastoral Care 12/13/23 Annette Walker, ARACELI Reference Library Assistant 05/13/24 Batool Celis MD [address] [facility] [place] [address] Radiation Oncologist Radiology-Radiation Oncology 06/08/24 documented as of this encounter
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
--- OUTSIDE RECORDS SUMMARY | 2025-01-15 13:15 | XMS_ITS | Encounter Summary ---
Author Organization [place] [address] Care Team Providers Care Door Operator Name Role Phone Chetna Cedeno MD Primary Care Provider [phone] Arlyn Schmidt MD Unavailable [phone] Tacho Echvaarria MD Unavailable [phone] Matt Ulrich MD Unavailable [phone] Eze Brock Unavailable Annette Walker Unavailable [phone] Batool Celis MD Unavailable [phone] Encounter Details Date Type Department Care Team (Latest Contact Info) Description 01/15/2025 1:15 PM EDT - 01/15/2025 1:29 PM EDT Hospital Encounter [facility] [place], [place] [phone] Tacho Echavarria MD [address] [place] [address] [phone] Invasive ductal carcinoma of breast, female, right [...] doctor or pharmacy? Never 11/07/2023 [facility] Utilities Answer Date Recorded In [...] any clubs o r organizations such as oriental orthodox groups, unions, fraternal or athletic groups, [...] Date Recorded PHQ-2 Total Score 5 07/07/2024 [facility] - [...] any time in the past 12 m [facility], were you homeless or living in a half-way (including now)? No 11/07/2023 [facility] IP Transportation Answer D ate Recorded In [...] 4 fluticasone propionate (FLONASE) 50 mcg/actuation Nasl [place], Suspension 1 [place] by Nasal route daily. 1 Each 4 [...] EDT Procedure visit [facility] [address] [facility] [place] [address] Samm Ledesma APRN [address] [place] [address] 03/10/2025 12:30 PM EDT Appointment [facility] [place] [address] Tacho Echavarria MD 1 [place] [address] 03/10/2025 1:00 PM EDT Appointment [facility] [place] [address] Tacho Echavarria MD [address] [place] [address] 04/29/2025 9:15 AM EDT Appointment [facility] RAD ONC [place], [place] [phone] Batool Celis MD [address] [place] [address] [place] [address] 05/19/2025 2:15 PM EST Office Visit [address] [address] Sin Tran MD [address] [place] [address] 08/12/2025 10:40 AM EST Appointment [facility] [place] [address] Matt Ulrich MD [address] [place] [address] [address] [place] [address] documented as of this encounter Goals Goal [...] - 145 mmol/L 01/15/2025 2:05 PM EDT [facility] Potassium 4.0 3.5 - 5.0 mmol/L 01/15/2025 2:05 PM EDT [facility] Chloride 107 98 - 107 mmol/L 01/15/2025 2:05 PM EDT [facility] Total CO2 25 22 - 29 mmol/L 01/15/2025 2:05 PM EDT [facility] Anion Gap 8 7 - 16 mmol/L 01/15/2025 2:05 PM EDT [facility] Calcium 9.3 8.6 - 10.4 mg/dL 01/15/2025 2:05 PM EDT [facility] Glucose Lvl 88 70 - 99 mg/dL 01/15/2025 2:05 PM EDT [facility] BUN 13 6 - 20 mg/dL 01/15/2025 2:05 PM EDT [facility] Creatinine 0.85 0.51 - 1.30 mg/dL 01/15/2025 2:05 PM EDT [facility] Albumin 4.0 3.5 - 5.2 gm/dL 01/15/2025 2:05 PM EDT [facility] Total Protein 6.7 6.4 - 8.3 gm/dL 01/15/2025 2:05 PM EDT [facility] Bili Total 0.3 0.2 - 1.3 mg/dL 01/15/2025 2:05 PM EDT [facility] ALT 8 <=41 U/L 01/15/2025 2:05 PM EDT [facility] AST 14 <=40 U/L 01/15/2025 2:05 PM EDT [facility] Alk Phos 124(H) 36 - 123 U/L 01/15/2025 2:05 PM EDT [facility] eGFR (CKD-EPIcr 2020) 79 >=60 mL/min/1.7 3 m2 01/15/2025 2:05 PM EDT [facility] Comment:Estimated GFR was ca lculated using the CKD-EPIcr (2020) equation refit without race. The equation is recommended by the National Kidney Foundation - [place] [employer] of Nephrology Task Force. Blood VENOUS BLOOD / Unknown Venipuncture / Unknown 01/15/2025 1:41 PM EDT 01/15/2025 1:44 PM EDT us Heydi Sorensen APRN CHEMISTRY ORDERABLES Final Res ult [facility] 1 [place] [address] * (ABNORMAL) CBC WITH DIFF (01/15/2025 1:41 PM EDT) WBC 4.5 3.7 - 10.3 x10(3)/mc L 01/15/2025 1:49 PM EDT [facility] RBC 3.40(L) 3.90 - 5.20 x10(6)/mc L 01/15/2025 1:49 PM EDT [facility] Hgb 10.3(L) 11.2 - 15.7 g/dL 01/15/2025 1:49 PM EDT [facility] Hct 31.7(L) 34.0 - 45.0 % 01/15/2025 1:49 PM EDT [facility] MCV 93.2 80.0 - 100.0 fL 01/15/2025 1:49 PM EDT [facility] MCH 30.3 26.0 - 34.0 pg 01/15/2025 1:49 PM EDT [facility] MCHC 32.5 30.7 - 35.5 g/dL 01/15/2025 1:49 PM EDT [facility] RDW 14.7 <=14.9 % 01/15/2025 1:49 PM EDT [facility] Platelet 165 155 - 369 x10(3)/mc L 01/15/2025 1:49 PM EDT [facility] MPV 8.4(L) 8.8 - 12.5 fL 01/15/2025 1:49 PM EDT [facility] Neut # Prelim 2.9 1.6 - 6.1 x10(3)/mc L 01/15/2025 1:49 PM EDT [facility] Comment:Preliminary automate d absolute neutrophil count. Value may change if manual differential is indicated. Neut Percent 64.2 % 01/15/2025 1:49 PM EDT [facility] Comment:Neutrophils equals s egs plus bands Imm Gran% 0.2 % 01/15/2025 1:49 PM EDT [facility] Comment:Automated count of m etamyelocytes, myelocytes and promyelocytes. Lymph Percent 28.3 % 01/15/2025 1:49 PM EDT [facility] [place] Percent 5.3 % 01/15/2025 1:49 PM EDT [facility] Eos Percent 1.3 % 01/15/2025 1:49 PM EDT [facility] Baso Percent 0.7 % 01/15/2025 1:49 PM EDT [facility] Neut # 2.9 1.6 - 6.1 x10(3)/mc L 01/15/2025 1:49 PM EDT [facility] Comment:Neutrophils equals s egs plus bands IMMGRAN# 0.0 0.0 - 0.1 x10(3)/mc L 01/15/2025 1:49 PM EDT [facility] Comment:Automated count of m etamyelocytes, myelocytes and promyelocytes. An absolute IG <0.1 is reported as 0.0. Lymph # 1.3 1.2 - 3.9 x10(3)/mc L 01/15/2025 1:49 PM EDT [facility] Wolfe # 0.2(L) 0.3 - 0.9 x10(3)/mc L 01/15/2025 1:49 PM EDT [facility] Eos# 0.1 0.0 - 0.5 x10(3)/mc L 01/15/2025 1:49 PM EDT [facility] Baso # 0.0 0.0 - 0.1 x10(3)/mc L 01/15/2025 1:49 PM EDT [facility] Blood VENOUS BLOOD / Unknown Venipuncture / Unknown 01/15/2025 1:41 PM EDT 01/15/2025 1:44 PM EDT us Heydi Sorensen SUPERVISOR RIVETING HEMATOLOGY ORDERABLES Final Re sult [facility] 1 [place] [address] documented in this encounter Visit [...] documented as of this encounter Care Teams Door Operator Relationship Specialty [place] [address] [place] [address] PCP - General 06/21/10 Arlyn Schmidt MD [address] [place] [address] Consulting Physician Internal Medicine-Endocrinology, Diabetes & Metabolism 11/28/20 Tacho Echavarria MD 1 [place], [place] [phone] Internal Medicine-Medical Oncology 11/12/23 Matt Ulrich MD 1 [place], [place] [id number] Surgery-Surgical Oncology 12/04/23 Eze Brock Pastoral Care 12/13/23 Annette Walker, TRACTOR DISTRIBUTOR [employer] 05/13/24 Batool Celis MD 1 [facility] [address] Radiation Oncologist Radiology-Radiation Oncology 06/08/24 documented as of this encounter
--- OUTSIDE RECORDS SUMMARY | 2025-01-15 13:30 | XMS_ITS | Encounter Summary ---
Author Organization 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 Never 11/07/2023 [facility] Utilities Answer Date Recorded In the past 12 months has e [employer], gas, oil, or water [employer] threatened to shut off services in your [...] any clubs o r organizations such as druze groups, unions, fraternal or athletic groups, or [...] Date Recorded PHQ-2 Total Score 5 07/07/2024 [facility] [place] of Occupat ional Health - Occupational Stress [...] in a mcfp (including now)? No 11/07/2023 [facility] IP Transportation Answer D ate Recorded [...] 4 fluticasone propionate (FLONASE) 50 mcg/actuation Nasl [place], Suspension 1 [place] by Nasal route daily. 1 Each 11 [...] EDT Procedure visit [facility] [address] [facility] [address] [place] [address] Samm Ledesma APRN [address] [facility] [facility] [address] [place] [address] 03/10/2025 12:30 PM EDT Appointment [facility] [place], [place] 5655017 Tacho Echavarria MD 1 [place] [address] 03/10/2025 1:00 PM EDT Appointment [facility] Medical Oncology [place], [place] 3883217 Tacoh Echavarria MD [address] [place] [address] [id number] 04/29/2025 9:15 AM EDT Appointment [place] [address] Batool Celis MD [address] [facility] [facility] CANCER CARE [place], [place] [id number] 05/19/2025 2:15 PM EST Office Visit [address] [place] [address] Sin Tran MD [address] [place] [address] 08/12/2025 10:40 AM EST Appointment [facility] Women's Wellness [facility] [place] [address] Matt Ulrich MD [address] [place] [address] 254 [place] [address] documented as of this encounter Goals Goal [...] documented as of this encounter Care Teams Candy Spreader Helper Relationship Specialty [place] [address] [place] [address] PCP - General 06/21/10 Arlyn Schmidt MD [address] [place] [address] Consulting Physician Internal Medicine-Endocrinology, Diabetes & Metabolism 11/28/20 Tacho Echavarria MD 1 [place] [address] Internal Medicine-Medical Oncology 11/12/23 Matt Ulrich MD [address] [place] [address] Surgery-Surgical Oncology 12/04/23 Eze Brock Pastoral Care 12/13/23 Annette Walker, ARACELI Field Artillery Targeting Technician 05/13/24 Batool Celis MD [address] [place] [address] [place] [address] Radiation Oncologist Radiology-Radiation Oncology 06/08/24 documented as of this encounter
--- OUTSIDE RECORDS SUMMARY | 2025-02-02 11:20 | XMS_ITS | Encounter Summary ---
Author Organization [place] [address] Care Team Providers Care Grill Prep Cook Name Role Phone Chetna Cedeno MD Primary Care Provider [phone] Arlyn Schmidt MD Unavailable [phone] Tacho Echavarria MD Unavailable [phone] Matt Ulrich MD Unavailable [phone] Eze Brock Unavailable Annette Walker Unavailable [phone] Batool Celis MD Unavailable [phone] Encounter Details Date Type Department Care Team (Late st Contact Info) Description 02/02/2025 11:20 AM EDT Telemedicine [facility] [address] [facility] [address] [place] [address] Samm Ledesma, ENGINEERING SUPERVISOR [address] [facility] [place] [address] Chronic migraine without aura, intractable, with status [...] from your doctor or pharmacy? Never 11/07/2023 [facility] Utilities Answer Date Recorded In the past [...] often do you attend chur ch or congregational services? 1 to 4 times per year 11/07/2023 Do you belong to any clubs o r organizations such as jewish groups, unions, fraternal or athletic groups, or [...] Date Recorded PHQ-2 Total Score 5 07/07/2024 [facility] of Occupat ional Health - Occupational [...] time in the past 12 m [facility], were you homeless or living in a senior living (including now)? No [facility] IP Transportation Answer D ate [...] follows with oncology and surgical oncology at [place]. She has had more numbness, tingling, pain [...] elevated potassium, diarrhea in the lungs at [facility]. Allergies: allergy list reviewed and accurate [...] by mouth 3 times daily. for abdominal [id number] Capsule 0 DULoxetine (CYMBALTA) 30 mg Oral [...] 6 fluticasone propionate (FLONASE) 50 mcg/actuation Nasl [place], Suspension 1 [place] by Nasal route daily. 1 Each 11 [...] level: High school graduate Occupational History Employer: [employer] Tobacco Use Smoking status: Never Passive exposure: [...] true Transportation Needs: No Transportation Needs (07/07/2024) [facility] IP Transportation In the past 12 months, has lack of reliable transportation kept you from medical appointments, meetings, work or from getting things needed for daily living?: No Physical Activity: Insufficiently Active (07/07/2024) Exercise Vital Sign Days of Exercise per Week: 3 days Minutes of Exercise per Session: 40 min Stress: Stress Concern Present (07/07/2024) [place] [facility] of Occupational Health - Occupational Stress Questionnaire Feeling of Stress : Rather much Social Connections: Socially Isolated (11/07/2023) Social Connection and Isolation Panel [NHANES] Frequency of Communication with Friends and Family: Once a week Frequency of Social Gatherings with Friends and Family: Once a week Attends Roman Catholic Services: 1 to 4 times per year Active Member of Clubs or Organizations: No Attends Club or Organization Meetings: Never Marital Status: Never Intimate Partner Violence: Not At Risk (11/07/2023) Humiliation, Afraid, Rape, and Kick questionnaire Fear of Current or Ex-Partner: No Emotionally Abused: No Physically Abused: No Sexually Abused: No Housing Stability: No Transportation Needs (02/24/2024) Received from [facility] Yearly Questionnaire Do you need [...] a video visit does not replace a vuyj-sj-tora exam and further service may be necessary. I advised the patient that we are conducting his/her video visit through the office in a private space onour secure network and this video visit is being conducted in accordance with [facility] telehealth/video visit regulations. [...] EDT Procedure visit [facility] [address] [facility] [address] [place] [address] Samm Ledesma APRN [address] [place] [address] 03/10/2025 12:30 PM EDT Appointment [place] [address] Tacho Echavarria MD [address] [place] [address] 03/10/2025 1:00 PM EDT Appointment [place] [address] Tacho Echavarria MD [address] [place] [address] 04/29/2025 9:15 AM EDT Appointment [place] [address] Batool Celis MD [address] [place] [address] [place] [address] 05/19/2025 2:15 PM EST Office Visit [facility] [address] [facility] [address] [place] [address] Sin Tran MD [address] [place] [address] 08/12/2025 10:40 AM EST Appointment [facility] Women's Well[facility] [place] [address] Matt Ulrich MD [address] [place] [address] [address] [place] [address] documented as of this encounter Goals Goal [...] documented as of this encounter Care Teams Grill Prep Cook Relationship Specialty [place] [address] [place] [address] PCP - General 06/21/10 Arlyn Schmidt MD [address] [place], [place] [phone] Consulting Physician Internal Medicine-Endocrinology, Diabetes & Metabolism 11/28/20 Tacho Echavarria MD 1 [place], [place] [id number] Internal Medicine-Medical Oncology 11/12/23 Matt Ulrich MD 1 [place] [address] Surgery-Surgical Oncology 12/04/23 Eze Brock Pastoral Care 12/13/23 Annette Walker, PLUG MAKING OPERATOR Director Of Business Development 05/13/24 Batool Celis MD 1 [facility] [place] [address] Radiation Oncologist Radiology-Radiation Oncology 06/08/24 documented as of this encounter
--- OUTSIDE RECORDS SUMMARY | 2025-02-04 11:00 | XMS_ITS | Encounter Summary ---
Author Organization [place] [address] Care Team Providers Care Train Operator Name Role Phone Chetna Cedeno MD Primary Care Provider [phone] Arlny Schmidt MD Unavailable [phone] Tacho Echavarria MD Unavailable [phone] Matt Ulrich MD Unavailable [phone] Eze Brock Unavailable Annette Walker Unavailable [phone] Batool Celis MD Unavailable [phone] Reason for Referral * Consultation (Routine) - Pending Review Specialty Diagnoses / Procedures Referred By Contac t Referred To Contact Diagnoses Invasive ductal carcinoma of breast, female, right (HCC) Procedures PA OFFICE/OUTPATIENT NEW MODERATE MDM 45 MINUTES Naya García PA-C [address] [facility] [address] [place] [address] Phone: tel: fax: Referral ID Status Reason Start Date Expiration Date V isits Requested Visits Authorized [id number] Pending Review 02/04/2025 02/04/2026 1 1 Question Answer Patient Status In Treatment - Survivorship visit today/not new diagnosis Reason for referral? Survivorship * Mammography (Routine) - Pending Review Specialty Diagnoses / Procedures Referred By Van butler Referred To Contact Radiology Diagnoses Encounter for screening mammogram for breast cancer Procedures MM MAMMO DIGITAL STEPHANE SCREEN LEFT Naya García PA-C [address] [place] [address] [address] [place] [address] Phone: tel: fax: Referral ID Status Reason Start Date Expiration Date V isits Requested Visits Authorized [id number] Pending Review 02/04/2025 02/04/2027 1 1 Reason for Visit * Reason Comments Follow-up Survivorship Encounter Details Date Type Department Care Team (Latest Contact Info) Description 02/04/2025 11:00 AM EDT - 02/04/2025 1:47 PM EDT Hospital Encounter [facility] Women's [facility] [place] [address] Tacho Echavarria MD [address] [place] [address] Naya García PA-C [address] [place] [address] [address] [place] [address] Invasive ductal carcinoma of breast, female, right [...] Recorded PHQ-2 Total Score 5 07/07/2024 [facility] - Occupational Stress Questionnaire Answer Date [...] in a fpc (including now)? No 11/07/2023 [facility] IP Transportation Answer D [...] 4 fluticasone propionate (FLONASE) 50 mcg/actuation Nasl [place], Suspension 1 [place] by Nasal route daily. 1 Each 11 [...] Bra fits ok. She was recently in [facility] and diagnosed with PE. On [...] cancer support group GENETICS/FAMILY HISTORY: Genetics Negative ([employer] Hereditary Cancer 67-gene panel). No new family [...] Invasive ductal carcinoma, grade 3 ER 80%, PA 11%, Her2 negative B. Breast, right, 5:00 Invasive ductal carcinoma grade 3 ER 92%, PA 55%, Her2 negative 11/11/2023 - Consult Initial [...] to GI tolerance for 2 yr planned ([place]-E regimen) 10/2024 - changed to Aromasin d/t [...] Stage IIIB (cT3, cN3a(f), cM0, G3, ER+, PA+, HER2-) Pathologic Stage ypT3, ypN3a, G3, ER+, PA+, HER2- 02/04/2025 - Other Naya García PA-C [...] Stage IIIB (cT3, cN3a(f), cM0, G3, ER+, PA+, HER2-) - Unsigned - Pathologic stage from 07/06/2024: ypT3, ypN3a, G3, ER+, PA+, HER2- - Unsigned RECENT IMAGING: Right MTX [...] by mouth 3 times daily. for abdominal [id number] Capsule 0 DULoxetine (CYMBALTA) 30 mg Oral [...] 6 fluticasone propionate (FLONASE) 50 mcg/actuation Nasl [place], Suspension 1 [place] by Nasal route daily. 1 Each 11 [...] GASTRECTOMY ; Surgeon: Marcus Perez MD; Location: [facility] OR; Service: General IR 2 LEVEL BILATERAL [...] SACRAL SINGLE LVL 08/03/2022 Sin Tran MD [facility] SPINE CTR IMAGING IR PORT PLACEMENT EQUAL OR > 5 YEARS 11/29/2023 IR PORT PLACEMENT EQUAL OR > 5 YEARS 11/29/2023 Joselito Goodwin MD [facility] IR LUMBAR DISC SURGERY 09/11/2012 LUMBAR LAMINECTOMY & DISCECTOMY L4-5 LEFT ; Surgeon: Hetal Borden MD; MASTECTOMY Right 07/06/2024 Right modified radical mastectomy; Surgeon: Matt Ulrich MD; Location: [facility] MAIN OR; Service:General SPINE SURGERY N/A 01/04/2021 PAIN PUMP PERMANENT IMPLANT; Surgeon: Munir Hilton MD; Location: [facility] MAIN OR; Service: Pain Management THORACIC SPINE SURGERY N/A 02/24/2020 SPINAL CORD STIMULATOR IMPLANT; Surgeon: Munir Hilton MD; Location: [facility] MAIN OR; Service: Pain Management TONSILLECTOMY UPPER GASTROINTESTINAL ENDOSCOPY UPPER GASTROINTESTINAL ENDOSCOPY N/A 01/26/2015 ESOPHAGOGASTRODUODENOSCOPY with biopsy and davis dilation; Surgeon: Stone Cronin MD; Location: [facility]; Service: Endoscopy Allergies Allergen Reactions Amoxicillin [...] level: High school graduate Occupational History Employer: [employer] Tobacco Use Smoking status: Never Passive exposure: [...] true Transportation Needs: No Transportation Needs (07/07/2024) [facility] IP Transportation In the past 12 months, has lack of reliable transportation kept you from medical appointments, meetings, work or from getting things needed for daily living?: No Physical Activity: Insufficiently Active (07/07/2024) Exercise Vital Sign Days of Exercise per Week: 3 days Minutes of Exercise per Session: 40 min Stress: Stress Concern Present (07/07/2024) [place] [employer]ational [employer] - Occupational Stress Questionnaire Feeling of Stress : Rather much Social Connections: Socially Isolated (11/07/2023) Social Connection and Isolation Panel [NHANES] Frequency of Communication with Friends and Family: Once a week Frequency of Social Gatherings with Friends and Family: Once a week Attends Shinto Services: 1 to 4 times per year [...] care of this patient. Naya García PA-C [facility] Total time approx. 50 minutes, including review of notes, efym-mw-ztcw interaction, and documentation. Reviewed past pathology and [...] to access video: Lymphatic Massage YouTube Video [email or web address] Discuss DEXA scan with medical oncology, your last in our system was on 12/29/20. Breast Health Nurse Contact - Report new changes by calling the Breast Health Nurse Line at [phone]. Please remember the nurse checks voice mail [...] Desiree The number to our Boutique is [phone]. You may call to set up an [...] off all the clothes above your waist. bobbin disker front of a mirror in a room [...] circles with your fingers. For the first quileute, press lightly. Forthe second quileute, press harder. For the third quileute, press even harder. Keep making circles with [...] breast in the same way. Sit or machine clothing replacer the shower or tub. With soapy water [...] 12/10/2008 Document Revised: 11/29/2016 Document Reviewed: 05/13/2016 [employer] Patient Education ?? 2018 [employer] It is best not to drink [...] almonds. Get enough vitamin D - recommend 2850-2663 IU/day Vitamin D is the most essential [...] EDT Procedure visit [facility] [address] [place] [address] Samm Ledesma APRN [address] [facility] [address] [place] [address] 03/10/2025 12:30 PM EDT Appointment [place] [address] Tacho Echavarria MD [address] [place] [address] 03/10/2025 1:00 PM EDT Appointment [facility] [place], [place] [id number] Tacho Echavarria MD [address] [place] [address] 04/29/2025 9:15 AM EDT Appointment [facility] [place] [address] Batool Celis MD [address] [facility] [place], [place] [id number] 05/19/2025 2:15 PM EST Office Visit [facility] [address] [place] [address] [address] [place] [address] Sin Tran MD [address] [place], [place] [address] [address] 08/12/2025 10:40 AM EST Appointment [facility] Women's Wellness [facility]17 Matt Ulrich MD 20 [facility] [address] [place] [address] Scheduled Orders Name Type Priority Associated Diagnoses [...] documented as of this encounter Care Teams Train Operator Relationship Specialty [place] [address] [place] [id number] PCP - General 06/21/10 Arlyn Schmidt MD [address] [place] [address] Consulting Physician Internal Medicine-Endocrinology, Diabetes & Metabolism 11/28/20 Tacho Echavarria MD [address] [place] [address] Internal Medicine-Medical Oncology 11/12/23 Matt Ulrich MD 1 [place] [address] Surgery-Surgical Oncology 12/04/23 Eze Brock Pastoral Care 12/13/23 Annette Walker MSW Power Hammer Operator 05/13/24 Batool Celis MD 1 [facility] [place] [address] Radiation Oncologist Radiology-Radiation Oncology 06/08/24 documented as of this encounter
--- OUTSIDE RECORDS SUMMARY | 2025-02-10 10:30 | XMS_ITS | Encounter Summary ---
Author Organization [place] [address] Care Team Providers Care Set Key Driver Name Role Phone Chetna Cedeno MD Primary Care Provider [phone] Arlyn Schmidt MD Unavailable [phone] Tacho Echavarria MD Unavailable [phone] Matt Ulrich MD Unavailable [phone] Eze Brock Unavailable Annette Walker Unavailable [phone] Batool Celis MD Unavailable [phone] Reason for Visit * Reason Comments Follow-up Pump Refill Encounter Details Date Type Department Care Team (Late st Contact Info) Description 02/10/2025 10:30 AM EDT Office Visit [facility] Spine [address] [address] Sin Tran MD [address] [place] [address] Chronic pain syndrome (Primary Dx); Post laminectomy syndrome Social History Tobacco Use Types Packs/Day Years [...] your doctor or pharmacy? Never 11/07/2023 [facility] Utilities Answer Date Recorded In the [...] often do you attend chur ch or voodoo services? 1 to 4 times per year [...] Date Recorded PHQ-2 Total Score 5 07/07/2024 [facility] - Occupational Stress Questionnaire Answer [...] in a longterm (including now)? No 11/07/2023 [facility] IP Transportation Answer [...] Sign Reading Time Taken Comments Blood Pressure - - Pulse - - Temperature - - Respiratory Rate - - Oxygen Saturation - - Inhaled Oxygen Concentration - - Weight 84.1 kg (185 lb 6.4 oz) 02/10/2025 10:40 AM EDT Height 160 cm (5' 3 ) 02/10/2025 10:40 AM EDT Body Mass Index 32.84 02/10/2025 10:40 AM EDT documented in this encounter Functional [...] Macarena Henson CCMA documented in this encounter Progress Notes * Sin Tran MD - 02/10/2025 10:30 AM EDT TARGETED DRUG DELIVERY SYSTEM/INTRATHECAL PUMP ANALYSIS AND RE-PROGRAMMING VISIT: Today pain is reported to be 2/10 on VAS. The patient reports TDDS therapy partially controls theirpain to the point of making their pain more tolerable. Pain, however, remains beyond a tolerable level. Patient denies any adverse side effects with ongoing TDDS therapy. Physical Exam: There were no vitals filed for this visit. Incisional scars noted. Incisions well healed. IT pump in situ. No edema, warmth, erythema, or fluctuance. The FanBread analyzer was used to interrogate the SynchroMed II pump and the predicted pump volumewas noted. Using aseptic technique, the area surrounding the pump was prepped with antiseptic solution. Using usual sterile technique, a sterile drape was placed over the pump site. Then, an ultrasound machine was used to identify the location of the pump reservoir access site. A 22-gauge Hagan needle was used to access the reservoir port. The expected volume was aspirated from the pump. Next, a total of 20 mL of fentanyl 500 mcg/mL was slowly injected into the pump with intermittent aspirationevery 5 mL's. Negative pressure was noted upon removing the clamp of the extension tubing. The fluid meniscus was observed and no overpressurization was noted. The expected residual fluid that was removed from the pump was wasted appropriately. The needle was withdrawn and the reservoir alarm was reset. The infusion rate was reprogrammed following completion of the procedure. The patient was not given a bolus. Programming was verified before the pump was updated. The patient tolerated the procedure well without complications. Assessment/Plan: 1. Chronic pain syndrome 2. Post laminectomy syndrome - IT pump analyzed and re-programmed at time of visit. - Medication: Fentanyl 500 mcg/ml. - Infusion: no changes as doing well Sin Tran MD Interventional Pain Management [facility] documented in this encounter Plan of Treatment Upcoming Encounters Date Type Department Care Team (Late st Contact Info) Description 03/09/2025 12:45 PM EDT Procedure visit [facility] [address] [place] [address] Samm Ledesma APRN [address] [place] [address] 03/10/2025 12:30 PM EDT Appointment [place] [address] Tacho Echavarria MD [address] [place] [address] 03/10/2025 1:00 PM EDT Appointment [facility] Medical Oncology [place], [place] [phone] Tacho Echavarria MD [address] [place] [phone] 04/29/2025 9:15 AM EDT Appointment [place] [address] Batool Celis MD [address] [place] [address] [place] [address] 05/19/2025 2:15 PM EST Office Visit [facility] [address] [facility] [address] [place] [address] Sin Tran MD [address] [facility] [place] [address] 08/12/2025 10:40 AM EST Appointment [facility] Women's Wellness [place] One [facility] [place] [address] Matt Ulrich MD 20 [facility] 254 [place] [address] documented as of this encounter Goals Goal Patient Goal Type Associated Problems Recent Progress Patient-Stated? Author Blood Pressure < 140/90 Blood Pressure 121/77(02/04 2:04 PM EDT) No Chetna Cedeno MD Breast [facility] Breast Health On track(2024 11:27 AM [...] of this encounter Visit Diagnoses Diagnosis Chronic pain syndrome- Primary Post laminectomy syndrome Postlaminectomy syndrome, unspecified region documented in this encounter Additional Health Concerns Assessment Noted Time PHQ-9 Depression Total Score: 17 024 8:39 AM EST PHQ-2 Depression Total Score: 5 07/07/20 24 8:39 AM EST documented as of this encounter Care Teams Set Key Driver Relationship Specialty [place] [address] [place] [address] PCP - General 06/21/10 Arlyn Schmidt MD [address] [place] [address] Consulting Physician Internal Medicine-Endocrinology, Diabetes & Metabolism 11/28/20 Tacho Echavarria MD 1 [place] [address] Internal Medicine-Medical Oncology 11/12/23 Matt Ulrich MD 1 [place] [address] Surgery-Surgical Oncology 12/04/23 Eze Brock Pastoral Care 12/13/23 Annette Walker, ARACELI Newspaper Editor 05/13/24 Batool Celis MD 1 [facility] [place] [address] Radiation Oncologist Radiology-Radiation Oncology 06/08/24 documented as of this encounter
--- OUTSIDE RECORDS SUMMARY | 2025-03-02 07:11 | XMS_ITS | Encounter Summary ---
Author Organization [place] [address] Care Team Providers Care Piece Goods Packer Name Role Phone Chetna Cedeno MD Primary Care Provider [phone] Arlyn Schmidt MD Unavailable [phone] Tacho Echavarria MD Unavailable [phone] Matt Ulrich MD Unavailable [phone] Eze Brock Unavailable Cheryl Nair RN Unavailable [phone] Annette Walker CREDIT PORTFOLIO ADVISOR Unavailable [phone] Batool Celis MD Unavailable [phone] Encounter Details Date Type Department Care Team (Late st Contact Info) Description 09/11/2024 Lab Requisition [facility] [place] [address] [place] [address] Beata Kebede MD [address] [place] [address] Social History Tobacco Use Types Packs/Day Years [...] from your doctor or pharmacy? Never 11/07/2023 [facility] Utilities Answer Date Recorded In [...] Date Recorded PHQ-2 Total Score 5 07/07/2024 [facility] - Occupational [...] [facility] IP Transportation [...] [facility] [address] [place] [address] Samm Ledesma APRN [address] [place] [address] 03/10/2025 12:30 PM EDT Appointment [facility] [place] [address] Tacho Echavarria MD [address] [place] [address] 03/10/2025 1:00 PM EDT Appointment [facility] [place], [place] [address] Tacho Echavarria MD [address] [place] [address] 04/29/2025 9:15 AM EDT Appointment [facility] [place] [place] [address] Batool Celis MD [address] [place] [address] [place] [address] 05/19/2025 2:15 PM EST Office Visit [facility] [address] [address] [address] [place] [address] Sin Tran MD [address] [place] [phone] 08/12/2025 10:40 AM EST Appointment [facility] [place] [address] [facility] [address] [place] [address] Matt Ulrich MD [address] [place] [address] [place] [address] documented as of this encounter Goals Goal Patient Goal Type Associated Problems Recent Progress Patient-Stated? Author Blood Pressure < 140/90 Blood Pressure 121/77(02/04 2:04 PM EDT) No Chetna Cedeno MD Breast [facility] On track(2024 11:27 AM EDT) No Jasmin Porter, RAUL Note: Patient acknowledges understanding of new diagnosis, plan of care, available resources and how to contact Nurse Navigator with any future questions or concerns. Breast [facility] Breast [facility] Not on track(2024 11:27 AM EDT) [...] EST) CASE REPORT Surgical Pathology Report Case: [id number] Authorizing Provider: Beata Kebede MD Collected: 09/11/20241312 Ordering Location: [facility] Received: 09/11/20241312 Pathologist: Diane Ellis MD Specimen: Breast, Request for cases [id number], [id number] slides to [facility]. 09/15/2024 12:14 PM EDT [facility] FINAL DIAGNOSIS Results will be scanned in this case as an addendum. 09/15/2024 12:14 PM EDT [facility] at 1338 EST EMBEDDED IMAGES 09/15/2024 12:14 PM EDT [facility] ADDENDUM Refer to Scanned Surgical Pathology Report for [id number] & [id number]. 09/15/2024 12:14 PM EDT [facility] Addendum electronically signed by Diane Ellis MD on 09/15/2024 at 1214 EDT Tissue BREAST STRUCTURE / Unknown 09/11/2024 1:13 PM EST 09/11/2024 1:13 PM EST us Beata Kebede MD PATHOLOGY ORDERABLES Edited R esult - Final [facility] [address] [phone] documented in this encounter Visit Diagnoses Not on filedocumented in this encounter Additional Health Concerns Infection Onset Date Last Indicated Resolved Time COVID-19 09/04/2024 09/04/2024 09/24/2024 10:1 2 PM EDT Assessment Noted Time PHQ-9 Depression Total Score: 17 07/07/ 024 8:39 AM EST PHQ-2 Depression Total Score: 5 07/07/20 24 8:39 AM EST documented as of this encounter Care Teams Piece Goods Packer Relationship Specialty [place] [address] [place] [id number] PCP - General 06/21/10 Arlyn Schmidt MD [address] [place] [address] Consulting Physician Internal Medicine-Endocrinology , Diabetes & Metabolism 11/28/20 Tacho Echavarria MD [address] [phone] Internal Medicine-Medical Oncology 11/12/23 Matt Ulrich MD [address] [place] [address] Surgery-Surgical Oncology 12/04/23 Eze Brock Pastoral Care 12/13/23 Cheryl Nair, RN Oncology Nurse Navigator 03/25/2412/13 Annette Walker, ARACELI Manager Lab 05/13/24 Batool Celis MD [address] [facility] [place] [address] Radiation Oncologist Radiology-Radiation Oncology 06/08/24 documented as of this encounter
--- OUTSIDE RECORDS SUMMARY | 2025-03-02 07:11 | XMS_ITS ---
Author Organization Emilee VELIZJude OD Address [facility] [place] [address] Phone Care Team Providers Care Sanitation Laborer Name Role Phone Chetna Cedeno MD Primary Care Provider [phone] Arlyn Schmidt MD Unavailable [phone] Tacho Echavarria MD Unavailable [phone] Matt Ulrich MD Unavailable [phone] Eze Brock Unavailable Annette Walker Unavailable [phone] Batool Celis MD Unavailable [phone] Problems * This document contains information received from the source organization and may not represent a complete record from that organization. Patient Care Coordination No te Formatting of this note migh t be different from the original. [facility] - Sin Tran MD Controlled [...] capacity documented (EVERY VISIT)01/03/2022 Pharmacy: [facility] [address] [address] [facility] [phone] AIS POA: 02/10/2025 ojsh as expected #[id number] Josh 08-05-2018 adm Josh 08-14-18 adm UDS 08-08-18 adm Care gap audit completed by Medina White RN on 01/01/2022. 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 Care Team Medical Oncologist Dr. Tacho Echavarria Surgeon Dr. Matt Ulrich Radiation Oncologist Dr. Batool Celis Primary Care Physician Chetna Cedeno MD Cancer Diagnosis Information Diagnosis date 10/29/23 Diagnosis and Staging information Invasive Ductal Carcinoma, right breast Clinical Stage IIIB (cT3, cN3a(f), M0, G3, ER+, NJ+, Her2-) Pathologic Stage y(pT3, pN3a, G3 ER+, NJ+, Her2-) Tumor markers Breast: Estrogen Receptor positive (92%) Progesterone Receptor positive (55%) Her-2 negative Background Information/Additional Screening Recommendations Genetics testing Negative ([email or web address] Hereditary Cancer 67-gene panel) Tobacco use Nonsmoker. [...] up to GI tolerance for2 yr planned ([place]-E regimen) Radiation therapy External beam radiotherapy to a total dose of 60 Gy; 50 Gy to right chest wall and regional lymph nodes including internal mammary + 10 Gy boost to the undissected nodes. Delivered in a total of 30 fractions Endocrine Therapy Arimidex started 10/08/24 + Verzenio. Changed to Aromasin give [facility] Oncology Timeline Oncology History Invasive ductal carcinoma of breast, female, right (HCC) 10/29/2023 Initial Diagnosis Invasive ductal carcinoma of right breast, grade 3 A. Breast, right, 6:00, Invasive ductal carcinoma, grade 3 ER 80%, NJ 11%, Her2 negative B. Breast, right, 5:00 Invasive ductal carcinoma grade 3 ER 92%, NJ 55%, Her2 negative 11/11/2023 - Consult Initial [...] to GI tolerance for 2 yr planned ([place]-E regimen) 10/2024 - changed to Aromasin d/t [...] General Health Continue follow-up with PCP and INSTRUCTIONAL INTERVENTIONIST as directed Recommendations Self-care plan: What you [...] with your body,see your regular doctor, physician certified medical assistant, or nurse practitioner. 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
--- OUTSIDE RECORDS SUMMARY | 2025-03-02 07:11 | XMS_ITS | Encounter Summary ---
Author Organization [place] [address] Care Team Providers Care Design Eng Name Role Phone Chetna Cedeno MD Primary Care Provider [phone] Arlyn Schmidt MD Unavailable [phone] Tacho Echavarria MD Unavailable [phone] Matt Ulrich MD Unavailable [phone] Eze Brock Unavailable Annette Walker Unavailable [phone] Batool Celis MD Unavailable [phone] Encounter Details Date Type Department Care Team (Late st Contact Info) Description 01/15/2025 Plan of Care Documentation [facility] Physical Therapy [address] [place] [address] Social History Tobacco Use Types [...] 5 07/07/2024 [facility] of Occupat ional Health - Occupational [...] a senior care (including now)? No 11/07/2023 [facility] IP [...] [address] [place] [address] Samm Ledesma, LITIGATION EXAMINER [address] [place], [place] [id number] 03/10/2025 12:30 PM EDT Appointment [facility] [place], [place] [id number] Tacho Echavarria MD [address] [place] [address] 03/10/2025 1:00 PM EDT [facility]ointment [facility] [place] [address] Tacho Echavarria MD [address] [place] [address] 04/29/2025 9:15 AM EDT Appointment [facility] RAD ONC [place], [place] [id number] Batool Celis MD [address] [place] [address] [place] [address] 05/19/2025 2:15 PM EST Office Visit [facility] [address] [facility] [address] [place] [address] Sin Tran MD [address] [place] [address] 08/12/2025 10:40 AM EST Appointment [facility] Women's Wellness [place] [address] [place] [address] Matt Ulrich MD [address] [place] [address] [address] [place] [address] documented as of this encounter Goals Goal [...] as of this encounter Care Teams Design Eng Relationship Specialty [place] [address] [place] [address] PCP - General 06/21/10 Arlyn Schmidt MD [address] [place] [address] Consulting Physician Internal Medicine-Endocrinology, Diabetes & Metabolism 11/28/20 Tacho Echavarria MD 1 [place] [address] Internal Medicine-Medical Oncology 11/12/23 Matt Ulrich MD 1 [place] [address] Surgery-Surgical Oncology 12/04/23 Eze Brock Pastoral Care 12/13/23 Annette Walker, JD [facility] Test Man 05/13/24 Batool Celis MD 1 [place] [address] Radiation Oncologist Radiology-Radiation Oncology 06/08/24 documented as of this encounter
--- OUTSIDE RECORDS SUMMARY | 2025-03-02 07:12 | XMS_ITS | Encounter Summary ---
Author Organization [facility] [address] Care Team Providers Care Time Study Observer Name Role Phone Chetna Cedeno MD Primary Care Provider [phone] Arlyn Schmidt MD Unavailable [phone] Tacho Echavarria MD Unavailable [phone] Matt Ulrich MD Unavailable [phone] Eze Brock Unavailable Annette Walker Unavailable [phone] Batool Celis MD Unavailable [phone] Reason for Visit * Reason Onset Date Comments Symptom Call 01/15/2025 shakiness, light headed, cold chills, and breaking out in sweats Encounter Details Date Type Department Care Team (Late st Contact Info) Description 01/15/2025 Telephone [facility] [place], [place] [id number] Tacho Echavarria MD [address] [place] [address] Symptom Call (shakiness, light headed, cold [...] Date Recorded PHQ-2 Total Score 5 07/07/2024 [facility] [place] of Occupat ional Health - Occupational Stress [...] in a usp (including now)? No 11/07/2023 [facility] IP Transportation [...] be seen. Patient scheduled for 1:30 with WIRE WELDER and 1:15 for labs. * Telephone Encounter [...] no What Location is the Patient seen at:[facility] Preferred call back number:[phone] Explained to the caller, if this is a medical emergency please call 911 or go to the nearest emergency room. documented in this encounter Plan of Treatment Upcoming Encounters Date Type Department Care Team (Late st Contact Info) Description 03/09/2025 12:45 PM EDT Procedure visit [facility] [address] [place] [address] Samm Ledesma, WIRE WELDER [address] [place] [address] 03/10/2025 12:30 PM EDT Appointment [facility] [place] [address] Tacho Echavarria MD [address] [place] [address] 03/10/2025 1:00 PM EDT Appointment [facility] On[facility] [place], [place] [phone] Tacho Echavarria MD [address] [place] [address] 04/29/2025 9:15 AM EDT Appointment [facility] RAD ONC [place], [place] [phone] Batool Celis MD [address] [place] [address] [place] [address] 05/19/2025 2:15 PM EST Office Visit [facility] [address] [facility] [address] [place] [address] Sin Tran MD [address] [place] [address] 08/12/2025 10:40 AM EST Appointment [facility] Women's Wellness [facility] [place] [address] Matt Ulrich MD [address] [place] [address] [place] [address] documented as of this encounter Goals Goal [...] - 145 mmol/L 01/15/2025 2:05 PM EDT [facility] Potassium 4.0 3.5 - 5.0 mmol/L 01/15/2025 2:05 PM EDT [facility] Chloride 107 98 - 107 mmol/L 01/15/2025 2:05 PM EDT [facility] Total CO2 25 22 - 29 mmol/L 01/15/2025 2:05 PM EDT [facility] Anion Gap 8 7 - 16 mmol/L 01/15/2025 2:05 PM EDT [facility] Calcium 9.3 8.6 - 10.4 mg/dL 01/15/2025 2:05 PM EDT [facility] Glucose Lvl 88 70 - 99 mg/dL 01/15/2025 2:05 PM EDT [facility] BUN 13 6 - 20 mg/dL 01/15/2025 2:05 PM EDT [facility] Creatinine 0.85 0.51 - 1.30 mg/dL 01/15/2025 2:05 PM EDT [facility] Albumin 4.0 3.5 - 5.2 gm/dL 01/15/2025 2:05 PM EDT [facility] Total Protein 6.7 6.4 - 8.3 gm/dL 01/15/2025 2:05 PM EDT [facility] Bili Total 0.3 0.2 - 1.3 mg/dL 01/15/2025 2:05 PM EDT [facility] ALT 8 <=41 U/L 01/15/2025 2:05 PM EDT [facility] AST 14 <=40 U/L 01/15/2025 2:05 PM EDT [facility] Alk Phos 124(H) 36 - 123 U/L 01/15/2025 2:05 PM EDT [facility] eGFR (CKD-EPIcr 2020) 79 >=60 mL/min/1.7 3 m2 01/15/2025 2:05 PM EDT [facility] Comment:Estimated GFR was ca lculated using the CKD-EPIcr (2020) equation refit without race. The equation is recommended by the National Kidney Foundation - [place] [employer] of Nephrology Task Force. Blood VENOUS BLOOD / Unknown Venipuncture / Unknown 01/15/2025 1:41 PM EDT 01/15/2025 1:44 PM EDT us Heydi Sorensen APRN CHEMISTRY ORDERABLES Final Res ult [facility] [address] [place] [id number] * (ABNORMAL) CBC WITH DIFF (01/15/2025 1:41 PM EDT) WBC 4.5 3.7 - 10.3 x10(3)/mc L 01/15/2025 1:49 PM EDT [facility] RBC 3.40(L) 3.90 - 5.20 x10(6)/mc L 01/15/2025 1:49 PM EDT [facility] Hgb 10.3(L) 11.2 - 15.7 g/dL 01/15/2025 1:49 PM EDT [facility] Hct 31.7(L) 34.0 - 45.0 % 01/15/2025 1:49 PM EDT [facility] MCV 93.2 80.0 - 100.0 fL 01/15/2025 1:49 PM EDT [facility] MCH 30.3 26.0 - 34.0 pg 01/15/2025 1:49 PM EDT [facility] MCHC 32.5 30.7 - 35.5 g/dL 01/15/2025 1:49 PM EDT [facility] RDW 14.7 <=14.9 % 01/15/2025 1:49 PM EDT [facility] Platelet 165 155 - 369 x10(3)/mc L 01/15/2025 1:49 PM EDT [facility] MPV 8.4(L) 8.8 - 12.5 fL 01/15/2025 1:49 PM EDT [facility] Neut # Prelim 2.9 1.6 - 6.1 x10(3)/mc L 01/15/2025 1:49 PM EDT [facility] Comment:Preliminary automate d absolute neutrophil count. Value may change if manual differential is indicated. Neut Percent 64.2 % 01/15/2025 1:49 PM EDT [facility] Comment:Neutrophils equals s egs plus bands Imm Gran% 0.2 % 01/15/2025 1:49 PM EDT [facility] Comment:Automated count of m etamyelocytes, myelocytes and promyelocytes. Lymph Percent 28.3 % 01/15/2025 1:49 PM EDT [facility] [place] Percent 5.3 % 01/15/2025 1:49 PM EDT [facility] Eos Percent 1.3 % 01/15/2025 1:49 PM EDT [facility] Baso Percent 0.7 % 01/15/2025 1:49 PM EDT [facility] Neut # 2.9 1.6 - 6.1 x10(3)/mc L 01/15/2025 1:49 PM EDT [facility] Comment:Neutrophils equals s egs plus bands IMMGRAN# 0.0 0.0 - 0.1 x10(3)/mc L 01/15/2025 1:49 PM EDT [facility] Comment:Automated count of m etamyelocytes, myelocytes and promyelocytes. An absolute IG <0.1 is reported as 0.0. Lymph # 1.3 1.2 - 3.9 x10(3)/ L 01/15/2025 1:49 PM EDT [facility] [place] # 0.2(L) 0.3 - 0.9 x10(3)/ L 01/15/2025 1:49 PM EDT [facility] Eos# 0.1 0.0 - 0.5 x10(3)/ L 01/15/2025 1:49 PM EDT [facility] Baso # 0.0 0.0 - 0.1 x10(3)/ L 01/15/2025 1:49 PM EDT [facility] Blood VENOUS BLOOD / Unknown Venipuncture / Unknown 01/15/2025 1:41 PM EDT 01/15/2025 1:44 PM EDT us Heydi Sorensen WIRE WELDER HEMATOLOGY ORDERABLES Final Re sult [facility] 1 [place] [address] documented in this encounter Visit [...] documented as of this encounter Care Teams Time Study Observer Relationship Specialty [place] [address] [place] [address] PCP - General 06/21/10 Arlyn Schmidt MD [address] [place] [address] Consulting Physician Internal Medicine-Endocrinology, Diabetes & Metabolism 11/28/20 Tacho Echavarria MD 1 [place] [address] Internal Medicine-Medical Oncology 11/12/23 Matt Ulrich MD 1 [place] [address] Surgery-Surgical Oncology 12/04/23 Eze Brock Pastoral Care 12/13/23 Annette Walker, IN HOUSE CRA Hairspring Setter 05/13/24 Batool Celis MD 1 [facility] [place] [address] Radiation Oncologist Radiology-Radiation Oncology 06/08/24 documented as of this encounter
--- OUTSIDE RECORDS SUMMARY | 2025-03-02 07:12 | XMS_ITS | Encounter Summary ---
Author Organization [place] [address] Care Team Providers Care Street Sprinkler Name Role Phone Chetna Cedeno MD Primary Care Provider [phone] Arlyn Schmidt MD Unavailable [phone] Tacho Echavarria MD Unavailable [phone] Matt Ulrich MD Unavailable [phone] Eze Brock Unavailable Annette Walker Unavailable [phone] Batool Celis MD Unavailable [phone] Reason for Visit * Reason Comments Pharmacy Migraine Medication Management Ubrelvy Encounter Details Date Type Department Care Team (Latest Contact Info) Description 01/15/2025 Specialty Pharmacy [facility] [address] [place] [address] Annamarie Mark CPhT Pharmacy Migraine [...] from your doctor or pharmacy? Never 11/07/2023 [facility] Utilities Answer Date Recorded In the past 12 months has th e electric, gas, oil, or water [employer] threatened to shut off services in your [...] Date Recorded PHQ-2 Total Score 5 07/07/2024 [facility] [place] of Occupat ional Health - Occupational Stress [...] in a assisted (including now)? No 11/07/2023 [facility] IP Transportation Answer D ate [...] Cole requested a refill of Ubrelvy via [employer]. [employer] message was sent in response with appropriate questionnaire. Will f/u in 2 business days. documented in this encounter Plan of Treatment Upcoming Encounters Date Type Department Care Team (Late st Contact Info) Description 03/09/2025 12:45 PM EDT Procedure visit [facility] [address] [place] [address] Samm Ledesma APRN [address] [place] [address] 03/10/2025 12:30 PM EDT Appointment [place] [address] Tcaho Echavarria MD [address] [place] [address] 03/10/2025 1:00 PM EDT Appointment [facility] Medical Oncology [place], [place] [id number] Tacho Echavarria MD [address] [place] [id number] 04/29/2025 9:15 AM EDT Appointment [facility] [address] Batool Celis MD [address] [place] [address] [place] [address] 05/19/2025 2:15 PM EST Office Visit [facility] [address] [facility] [address] [place] [address] Sin Tran MD [address] [facility] [place] [address] 08/12/2025 10:40 AM EST Appointment [facility] [place] [facility] [place] [address] Matt Ulrich MD [address] [facility] [address] [place] [address] documented as of this encounter [...] as of this encounter Care Teams Street Sprinkler Relationship Specialty [place] [address] [place] [address] PCP - General 06/21/10 Arlyn Schmidt MD [address] [place], [place] [address] Consulting Physician Internal Medicine-Endocrinology, Diabetes & Metabolism 11/28/20 Tacho Echavarria MD 1 [place], [place] [address] Internal Medicine-Medical Oncology 11/12/23 Matt Ulrich MD 1 [place], [place] [id number] Surgery-Surgical Oncology 12/04/23 Eze Brock Pastoral Care 12/13/23 Annette Walker, AMMONIUM NITRATE NEUTRALIZER Electrical Machine Builder 05/13/24 Batool Celis MD 1 [facility] [place], [place] [id number] Radiation Oncologist Radiology-Radiation Oncology 06/08/24 documented as of this encounter
--- OUTSIDE RECORDS SUMMARY | 2025-03-02 07:13 | XMS_ITS | Encounter Summary ---
Author Organization [place] [address] Care Team Providers Care Electrical Repairer Name Role Phone Chetna Cedeno MD Primary Care Provider [phone] Arlyn Schmidt MD Unavailable [phone] Tacho Echavarria MD Unavailable [phone] Matt Ulrich MD Unavailable [phone] Eze Brock Unavailable Annette Walker Unavailable [phone] Batool Celis MD Unavailable [phone] Reason for Visit * Reason Comments Medication Refill Encounter Details Date Type Department Care Team (Late st Contact Info) Description 01/14/2025 Refill [facility] Medical Oncology [place], [place] [id number] Tacho Echavarria MD [address] [place] [address] [id number] Medication Refill Social History Tobacco Use Types [...] in a intermediate (including now)? No 11/07/2023 [facility] IP Transportation [...] 2:08 PM EDT Macarena Marino CCMA documented in this encounter Ordered Prescriptions [...] HECTOR [address] [facility] [address] [place] [address] Samm Ledesma, RN TRANSITION [address] [place] [address] 03/10/2025 12:30 PM EDT Appointment [facility] [place] [address] Tacho Echavarria MD [address] [place] [address] 03/10/2025 1:00 PM EDT Appointment [facility] [place] [address] Tacho Echavarria MD [address] [place] [address] 04/29/2025 9:15 AM EDT Appointment [facility] RAD ONC [place], [place] [id number] Batool Celis MD [address] [place] [address] [place] [address] 05/19/2025 2:15 PM EST Office Visit [address] [address] Sin Tran MD [address] [place] [address] 08/12/2025 10:40 AM EST Appointment [facility] Women's [facility] [place] [address] Matt Ulrich MD [address] [place] [address] documented as of this encounter Goals Goal [...] as of this encounter Care Teams Electrical Repairer Relationship Specialty [place] [address] [place] [address] PCP - General 06/21/10 Arlyn Schmidt MD [address] [place] [address] Consulting Physician Internal Medicine-Endocrinology, Diabetes & Metabolism 11/28/20 Tacho Echavarria MD 1 [place] [address] Internal Medicine-Medical Oncology 11/12/23 Matt Ulrich MD 1 [place] [address] Surgery-Surgical Oncology 12/04/23 Eze Brock Pastoral Care 12/13/23 Annette Walker MSW Churner 05/13/24 Batool Celis MD [address] [place] [address] [place] [address] Radiation Oncologist Radiology-Radiation Oncology 06/08/24 documented as of this encounter
--- OUTSIDE RECORDS SUMMARY | 2025-03-02 07:13 | XMS_ITS | Encounter Summary ---
Author Organization [place] [address] Care Team Providers Care Senior Software Quality Engineer Name Role Phone Chetna Cedeno MD Primary Care Provider [phone] Arlyn Schmidt MD Unavailable [phone] Tacho Echavarria MD Unavailable [phone] Matt Ulrich MD Unavailable [phone] Eze Brock Unavailable Annette Walker Unavailable [phone] Batool Celis MD Unavailable [phone] Encounter Details Date Type Department Care Team (Late st Contact Info) Description 01/13/2025 Plan of Care Documentation [facility] Physical Therapy [address] [place] [address] Social History Tobacco Use Types [...] from your doctor or pharmacy? Never 11/07/2023 [facility] Utilities Answer Date Recorded In [...] Recorded PHQ-2 Total Score 5 07/07/2024 [facility] of Occupat ional Health [...] (including now)? No 11/07/2023 [facility] IP [...] to walk with no AD by then, [place] (but pt states that she was told this may have been a misdiagnosis), currently taking chemo pill, R mastectomy Jun 2024, radiation ended 09/25/24, chronic back issues with sciatica Physician: Jericho ESCOBAR Follow Up: 11/11/24 Evaluation Date: 10/30/24 Reassessment Due: 12/26/24 Primary Insurance: MEDICAID /[facility] [id number] [facility] Secondary Insurance: n/a Insurance Authorization: AMB REFERRAL TO PHYSICAL THERAPY Authorized (10/08/2024-01/28/2025) Visits Requested Visits Authorized Visits Completed Visits Scheduled -- Details Referral ID: [id number] Authorization Status Reason: Received Carrier Authorization Authorization Comments: -- Referred To: Shaunna Workman PT at [facility] PT Referred By: Tacho Echavarria MD at [facility] CANCER CTR MED ONC, [facility] Date: 10/08/2024 Referral Reasons: Specialty Services [...] other week Needs Assistance: No 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 pt verbalized understanding of this again. 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 Access Code: [email or web address] URL: [email or web address] Date: 11/11/2024 Prepared by: Romana Bowman Exercises [...] will be Independent with HEP to improve chcf health and reduce risk for injury. indbut [...] increase from 727 feet with RW to 3659-8825 feet with LRAD to improve gait elisha [...] away. Treatments to consist of Therapeutic exercise 60053, Neuromuscular re-education 23963, Manual soft tissue and/or joint mobilization 81526, Patient education, Therapeutic activity 37198, and Gait training 83005. Electronically signed by: Signed: Shaunna Workman PT Date: 01/13/2025 documented in this encounter Plan of Treatment Upcoming Encounters Date Type Department Care Team (Late st Contact Info) Description 03/09/2025 12:45 PM EDT Procedure visit [facility] [address] [facility] [address] [place] [address] Samm Ledesma, SAAS ARCHITECT [address] [facility] [address] [place] [address] 03/10/2025 12:30 PM EDT Appointment [place] [address] Tacho Echavarria MD [address] [place] [address] 03/10/2025 1:00 PM EDT [facility]ointment [facility] [place] [address] Tacho Echavarria MD [address] [place] [address] 04/29/2025 9:15 AM EDT Appointment [place] [address] Batool Celis MD [address] [place] [address] [place] [address] 05/19/2025 2:15 PM EST Office Visit [address] [address] Sin Tran MD [address] [place] [address] 08/12/2025 10:40 AM EST Appointment [facility] Women's Wellness [facility] [place] [address] Matt Ulrich MD [address] [place] [address] documented as of this encounter Goals Goal [...] of this encounter Care Teams Senior Software Quality Engineer Relationship Specialty [place] [address] [place] [address] PCP - General 06/21/10 Arlyn Schmidt MD [address] [place] [address] Consulting Physician Internal Medicine-Endocrinology, Diabetes & Metabolism 11/28/20 Tacho Echavarria MD 1 [place] [address] Internal Medicine-Medical Oncology 11/12/23 Matt Ulrich MD 1 [place] [address] Surgery-Surgical Oncology 12/04/23 Eze Brock Pastoral Care 12/13/23 Annette Walker MSW Financial Services Agent 05/13/24 Batool Celis MD [address] [place] [address] [place] [address] Radiation Oncologist Radiology-Radiation Oncology 06/08/24 documented as of this encounter
--- OUTSIDE RECORDS SUMMARY | 2025-03-02 07:15 | XMS_ITS | Encounter Summary ---
Author Organization [place] [address] Care Team Providers Care Patient Registration Manager Name Role Phone Chetna Cedeno MD Primary Care Provider [phone] Arlyn Schmidt MD Unavailable [phone] Tacho Echavarria MD Unavailable [phone] Matt Ulrich MD Unavailable [phone] Eze Brock Unavailable Annette Walker Unavailable [phone] Batool Celis MD Unavailable [phone] Encounter Details Date Type Department Care Team (Late st Contact Info) Description 01/15/2025 Plan of Care Documentation [facility] Physical Therapy [address] [place] [address] Social History Tobacco Use Types [...] in a mcfp (including now)? No 11/07/2023 [facility] IP Transportation Answer D [...] [address] [place] [address] Samm Ledesma, GOLD CHARMER [address] [facility] [address] [place], [place] [id number] 03/10/2025 12:30 PM EDT Appointment [facility] [place], [place] [address] Tacho Echavarria MD [address] [place] [address] 03/10/2025 1:00 PM EDT Appointment [facility] [place] [address] Tacho Echavarria MD [address] [place] [address] 04/29/2025 9:15 AM EDT Appointment [facility] RAD ONC [place], [place] [id number] Batool Celis MD [address] [place] [address] [place] [address] 05/19/2025 2:15 PM EST Office Visit [facility] [address] [facility] [address] [place] [address] Sin Tran MD [address] [place] [address] 08/12/2025 10:40 AM EST Appointment [facility] Women's Wellness [place] [address] [facility] [place] [address] Matt Ulrich MD [address] [place] [address] [address] [place] [address] documented as of this encounter Goals Goal [...] as of this encounter Care Teams Patient Registration Manager Relationship Specialty [place] [address] [place] [address] PCP - General 06/21/10 Arlyn Schmidt MD [address] [place] [address] Consulting Physician Internal Medicine-Endocrinology, Diabetes & Metabolism 11/28/20 Tacho Echavarria MD 1 [place] [address] Internal Medicine-Medical Oncology 11/12/23 Matt Ulrich MD 1 [place] [address] Surgery-Surgical Oncology 12/04/23 Eze Brock Pastoral Care 12/13/23 Annette Walker, [facility] Inventory Accountant 05/13/24 Batool Celis MD 1 [place] [address] Radiation Oncologist Radiology-Radiation Oncology 06/08/24 documented as of this encounter
--- OUTSIDE RECORDS SUMMARY | 2025-03-02 07:17 | XMS_ITS | Encounter Summary ---
Author Organization [place] [address] Care Team Providers Care Data Integrity Consultant Name Role Phone Chetna Cedeno MD Primary Care Provider [phone] Arlyn Schmidt MD Unavailable [phone] Tacho Echavarria MD Unavailable [phone] Matt Ulrich MD Unavailable [phone] Eze Brock Unavailable Annette Walker Unavailable [phone] Batool Celis MD Unavailable [phone] Reason for Visit * Reason Comments Pharmacy Migraine Medication Management Qulipta Encounter Details Date Type Department Care Team (Latest Contact Info) Description 12/31/2024 Specialty Pharmacy [facility] [address] [place] [address] Annamarie Mark CPhT Pharmacy Migraine [...] th e electric, gas, oil, or water [employer] threatened to shut off services in your [...] 5 07/07/2024 [facility] [place] of Occupat ional Health - Occupational Stress [...] in a detention (including now)? No 11/07/2023 [facility] IP Transportation Answer [...] Mark CPhT - 12/31/2024 11:07 AM EDT [facility] Qulipta RTS til 01/02 * Charlotte Martino CPhT - 12/31/2024 11:07 AM EDT Specialty Pharmacy Refill Coordination Note Contacted [facility] today regarding refills of Qulipta. Copay amount: $0 Sent Materia message. Patient informed of copay. * Glenna Vo CPhT - 12/31/2024 11:07 AM EDT Specialty Pharmacy Refill Coordination Note Contacted [facility] today regarding refills of Qulipta. Medication to be delivered by [facility] on 01/07. Copay amount: $0 Sent Materia message. Patient informed of copay. * Glenna Vo CPhT - 12/31/2024 11:07 AM EDT [facility] Medication has been released from [facility] but did not realize patient only [...] Monson CPhT - 12/31/2024 11:07 AM EDT [facility] Patient will picker and sorter load and unload medication 01/06. documented in this encounter Plan of Treatment Upcoming Encounters Date Type Department Care Team (Late st Contact Info) Description 03/09/2025 12:45 PM EDT Procedure visit [facility] [address] [facility] [address] [place] [address] Samm Ledesma APRN [address] [facility] [address] [place] [address] 03/10/2025 12:30 PM EDT Appointment [place] [address] Tacho Echavarria MD [address] [place] [address] 03/10/2025 1:00 PM EDT Appointment [facility] [place], [place] [address] Tacho Echavarria MD [address] [place] [address] 04/29/2025 9:15 AM EDT Appointment [place] [address] Batool Celis MD [address] [place] [address] [place] [address] 05/19/2025 2:15 PM EST Office Visit [facility] [address] [place] [address] [address] [place] [address] Sin Tran MD [address] [place] [phone] 08/12/2025 10:40 AM EST Appointment [facility] Women's Wellness [place] [address] [facility] [address] Matt Ulrich MD [address] [place] [address] [place] [address] documented as of this encounter [...] as of this encounter Care Teams Data Integrity Consultant Relationship Specialty [place] [address] [address] [facility] [place] [address] PCP - General 06/21/10 Arlyn Schmidt MD [address] [place] [address] Consulting Physician Internal Medicine-Endocrinology, Diabetes & Metabolism 11/28/20 Tacho Echavarria MD [address] [place] [phone] Internal Medicine-Medical Oncology 11/12/23 Matt Ulrich MD [address] [place] [id number] Surgery-Surgical Oncology 12/04/23 Eze Brock Pastoral Care 12/13/23 Annette Walker, [facility] Lapper 05/13/24 Batool Celis MD 1 [facility] [place] [address] Radiation Oncologist Radiology-Radiation Oncology 06/08/24 documented as of this encounter
--- OUTSIDE RECORDS SUMMARY | 2025-03-02 07:17 | XMS_ITS | Encounter Summary ---
Author Organization [place] [address] Care Team Providers Care Surgical Scrub Tech Name Role Phone Chetna Cedeno MD Primary Care Provider [phone] Arlyn Schmidt MD Unavailable [phone] Tacho Echavarria MD Unavailable [phone] Matt Ulrich MD Unavailable [phone] Eze Brock Unavailable Annette Walker Unavailable Batool Celis MD Unavailable [phone] Reason for Visit * Reason Onset Date Comments Botox Injection 01/01/2025 ~03/02/2025 Encounter Details Date Type Department Care Team (Late st Contact Info) Description 01/01/2025 Patient Outreach [facility] [address] [facility] [address] [place] [address] Samm Ledesma, WOOLING MACHINE OPERATOR [address] [facility] [address] [place] [address] Botox Injection (~03/02/2025 ) Social History Tobacco [...] [facility] of Occupat ional [facility] - Occupational Stress Questionnaire Answer Date Recorded [...] in a half-way (including now)? No 11/07/2023 [facility] IP Transportation Answer D [...] Author No 12/06/2022 2:08 PM EDT AaliyahdanyaMacarena hrenández CCMSharonda documented in this encounter Miscellaneous Notes * Telephone Encounter - Maria Elena Harvey - 01/12/2025 1:09 PM EDT Pt suzy'ed Botox for 03/02/25 * Telephone Encounter - Brittany Narvaez MA - 01/01/2025 11:30 AM EDT ~03/02/2025 ANNIE APPROVED: [id number] AUTH #: ASO ASBM Preferred [id number] DATES OF APPROVAL: 08/12/2024-08/11/2025 UNITS APPROVED: 620 units/ 4 visits documented in this encounter Plan of Treatment Upcoming Encounters Date Type Department Care Team (Late st Contact Info) Description 03/09/2025 12:45 PM EDT Procedure visit [facility] [address] [facility] [address] [place] [address] Samm Ledesma, LEYLA [address] [facility] [address] [place] [address] 03/10/2025 12:30 PM EDT Appointment [facility] [place], [place] [phone] Tacho Echavarria MD 1 [place], [place] [address] 03/10/2025 1:00 PM EDT Appointment [facility] [place] [address] Tacho Echavarria MD [address] [place] [address] 04/29/2025 9:15 AM EDT Appointment [facility] [place] [address] Batool Celis MD [address] [place] [address] [place] [address] 05/19/2025 2:15 PM EST Office Visit [address] [address] Sin Tran MD [address] [place] [address] 08/12/2025 10:40 AM EST Appointment [facility] Women's Wellness [facility] [place] [address] Matt Ulrich MD [address] [place] [address] documented as of this encounter Goals Goal [...] documented as of this encounter Care Teams Surgical Scrub Tech Relationship Specialty [place] [address] [place] [address] PCP - General 06/21/10 Arlyn Schmidt MD [address] [place], [place] [address] Consulting Physician Internal Medicine-Endocrinology, Diabetes & Metabolism 11/28/20 Tacho Echavarria MD 1 [place], [place] [phone] Internal Medicine-Medical Oncology 11/12/23 Matt Ulrich MD 1 [place] [address] Surgery-Surgical Oncology 12/04/23 Eze Brock Pastoral Care 12/13/23 Annette Walker MSW Supervisor Cell Maintenance 05/13/24 Batool Celis MD 1 [facility] CANCER [place], [place] [address] Radiation Oncologist Radiology-Radiation Oncology 06/08/24 documented as of this encounter
--- OUTSIDE RECORDS SUMMARY | 2025-03-02 07:18 | XMS_ITS | Encounter Summary ---
Author Organization [place] [address] Care Team Providers Care Machining Manager Name Role Phone Chetna Cedeno MD Primary Care Provider [phone] Arlyn Schmidt MD Unavailable [phone] Tacho Echavarria MD Unavailable [phone] Matt Ulrich MD Unavailable [phone] Eze Brock Unavailable Annette Walker Unavailable [phone] Batool Celis MD Unavailable [phone] Encounter Details Date Type Department Care Team (Late st Contact Info) Description 01/11/2025 Orders Only [facility] [place], [place] [phone] Tacho Echavarria MD [address] [place] [id number] Social History Tobacco Use Types Packs/Day Years [...] your doctor or pharmacy? Never 11/07/2023 [facility] Utilities Answer Date Recorded In the [...] Date Recorded PHQ-2 Total Score 5 07/07/2024 [facility] of Occupat ional Health - Occupational Stress [...] (including now)? No 11/07/2023 [facility] IP Transportation [...] HECTOR [address] [facility] [address] [place] [address] Samm Ledesma, LANDSCAPE TECHNICIAN [address] [facility] [address] [place] [address] 03/10/2025 12:30 PM EDT Appointment [place] [address] Tacho Echavarria MD [address] [place] [address] 03/10/2025 1:00 PM EDT Appointment [facility] [place] [address] Tacho Echavarria MD [address] [place] [address] 04/29/2025 9:15 AM EDT Appointment [place] [address] Batool Celis MD [address] [place] [address] [place] [address] 05/19/2025 2:15 PM EST Office Visit [facility] [address] [address] [place] [address] Sin Tran MD [facility] [place] [address] 08/12/2025 10:40 AM EST Appointment [facility] Women's Wellness [place] One [place] [address] Matt Ulrich MD [address] [facility] [address] MUSA [place], [place] [id number] documented as of this encounter Goals Goal [...] documented as of this encounter Care Teams Machining Manager Relationship Specialty [place] [address] [place] [phone] PCP - General 06/21/10 Arlyn Schmidt MD [address] [place] [address] Consulting Physician Internal Medicine-Endocrinology, Diabetes & Metabolism 11/28/20 Tacho Echavarria MD 1 [place] [address] Internal Medicine-Medical Oncology 11/12/23 Matt Ulrich MD 1 [place] [address] Surgery-Surgical Oncology 12/04/23 Eze Brock Pastoral Care 12/13/23 Annette Walker, ARACELI Tank Filler 05/13/24 Batool Celis MD 1 [facility] [place] [address] Radiation Oncologist Radiology-Radiation Oncology 06/08/24 documented as of this encounter
--- OUTSIDE RECORDS SUMMARY | 2025-03-02 07:19 | XMS_ITS | Encounter Summary ---
Author Organization [place] [address] Care Team Providers Care Contract Specialist Name Role Phone Chetna Cedeno MD Primary Care Provider [phone] Arlyn Schmidt MD Unavailable [phone] Tacho Echavarria MD Unavailable [phone] Matt Ulrich MD Unavailable [phone] Eze Brock Unavailable Annette Walker Unavailable [phone] Batool Celis MD Unavailable [phone] Reason for Visit * Reason Comments Pharmacy Oncology Management Pharmacy Reassessment abemaciclib (Verze nio) Encounter Details Date Type Department Care Team (Latest Contact Info) Description 12/25/2024 Specialty Pharmacy [facility] [address] [place] [address] Hilary Rivas, [facility] Pharmacy Oncology Management; Pharmacy Reassessment [...] in a retirement (including now)? No 11/07/2023 [facility] IP Transportation Answer D ate [...] this encounter Progress Notes * Rob Hilary, [facility] - 12/25/2024 10:18 AM EDT Specialty Pharmacy - Hematology/Oncology Reassessment Primary Financial Planning Assistant/Oncologist: Dr. Jericho Cole is a 59 y.o. [...] into the lungs daily. fluticasone propionate 1 [place] by Nasal route daily. Aerochamber MV 1 Each by [facility]Non-Drug; Combo Route) route as needed. lidocaine-prilocaine Apply [...] Roland RPH - 12/25/2024 10:18 AM EDT [facility] Per secure chat with provider. Will hold off on dose escalation at this time. Plan to re-evaluate in 1 month. documented in this encounter Plan of Treatment Upcoming Encounters Date Type Department Care Team (Late st Contact Info) Description 03/09/2025 12:45 PM EDT Procedure visit [facility] [address] [facility] [address] [place] [address] Samm Ledesma, LEYLA [address] [facility] [address] [place] [address] 03/10/2025 12:30 PM EDT Appointment [place] [address] Tacho Echavarria MD [address] [place] [address] 03/10/2025 1:00 PM EDT Appointment [facility] [place] [address] Tacho Echavarria MD [address] [place] [address] 04/29/2025 9:15 AM EDT Appointment [facility] [place] [address] Batool Celis MD [address] [place] [address] [place] [address] 05/19/2025 2:15 PM EST Office Visit [address] [place] [address] Sin Tran MD [address] [place] [address] 08/12/2025 10:40 AM EST Appointment [facility] Women's Wellness [facility] [place] [address] Matt Ulrich MD [address] [place] [address] documented as of this encounter Goals Goal [...] documented as of this encounter Care Teams Contract Specialist Relationship Specialty [place] [address] [place] [address] PCP - General 06/21/10 Arlyn Schmidt MD [address] [place] [address] Consulting Physician Internal Medicine-Endocrinology, Diabetes & Metabolism 11/28/20 Tacho Echavarria MD [address] [place] [address] Internal Medicine-Medical Oncology 11/12/23 Matt Ulrich MD [address] [place] [address] Surgery-Surgical Oncology 12/04/23 Eze Brock Pastoral Care 12/13/23 Annette Walker, ARACELI Credit Negotiator 05/13/24 Batool Celis MD [address] [place] [address] [place] [address] Radiation Oncologist Radiology-Radiation Oncology 06/08/24 documented as of this encounter
--- OUTSIDE RECORDS SUMMARY | 2025-03-02 07:20 | XMS_ITS | Encounter Summary ---
Author Organization [place] [address] Care Team Providers Care Ice Resurfacing Machine Operators Name Role Phone Chetna Cedeno MD Primary Care Provider [phone] Arlyn Schmidt MD Unavailable [phone] Tacho Echavarria MD Unavailable [phone] Matt Ulrich MD Unavailable [phone] Eze Brock Unavailable Annette Walker Unavailable [phone] Batool Celis MD Unavailable [phone] Encounter Details Date Type Department Care Team (Late st Contact Info) Description 12/25/[address] [facility] [place] [address] Jasmin Porter RN Social History [...] 07/07/2024 [facility] of Occupat ional [place] - Occupational Stress Questionnaire Answer Date Recorded [...] in a usp (including now)? No 11/07/2023 [facility] IP Transportation Answer D ate [...] [facility] [address] [place] [address] Samm Ledesma, COREMAKING SUPERVISOR [address] [place], [place] [id number] 03/10/2025 12:30 PM EDT Appointment [place] [address] Tacho Echavarria MD [address] [place] [address] 03/10/2025 1:00 PM EDT Appointment [facility] [place] [address] Tacho Echavarria MD [address] [place] [address] 04/29/2025 9:15 AM EDT Appointment [place] [address] Batool Celis MD [address] [place] [address] [place] [address] 05/19/2025 2:15 PM EST Office Visit [facility] [address] [place] [address] Sin Tran MD [address] [place] [address] 08/12/2025 10:40 AM EST Appointment [facility] [place] One [facility] [place] [address] Matt Ulrich MD [address] [place] [address] DR MUSA Hame[place] [address] documented as of this encounter Goals Goal [...] documented as of this encounter Care Teams Ice Resurfacing Machine Operators Relationship Specialty [place] [address] [place] [phone] PCP - General 06/21/10 Arlyn [place] MD [address] [place], [place] [address] Consulting Physician Internal Medicine-Endocrinology, Diabetes & Metabolism 11/28/20 Tacho Echavarria MD 1 [place] [address] Internal Medicine-Medical Oncology 11/12/23 Matt Ulrich MD 1 [place], [place] [id number] Surgery-Surgical Oncology 12/04/23 Eze Brock Pastoral Care 12/13/23 Annette Walker, HOUSEKEEPING LAUNDRY WORKER Property Valuer 05/13/24 Batool Celis MD 1 [facility] [place] [address] Radiation Oncologist Radiology-Radiation Oncology 06/08/24 documented as of this encounter
--- OUTSIDE RECORDS SUMMARY | 2025-03-02 07:21 | XMS_ITS | Encounter Summary ---
Author [place] [address] Care Team Providers Care Electrotyper Apprentice Name Role Phone Chetna Cedeno MD Primary Care Provider [phone] Alryn Schmidt MD Unavailable [phone] Tacho Echavarria MD Unavailable [phone] Matt Ulrich MD Unavailable [phone] Eze Brock Unavailable Annette Walker Unavailable [phone] Batool Celis MD Unavailable [phone] Reason for Visit * Reason Comments Oncology Nurse Navigation Encounter Details Date Type Department Care Team (Late st Contact Info) Description 02/10/2025 Patient Outreach [facility] [address] [place], [place] [id number] Tacho Echavarria MD [address] [place] [address] [phone] Oncology Nurse Navigation Social History Tobacco Use [...] a senior living (including now)? No 11/07/2023 [facility] IP Transportation Answer D ate Recorded [...] NN asking for a copy (printed for burr picker) of the letter that Dr. Echavarria wrote regarding the air conditioner and asked for an update on getting a letter to help with her student loanforgiveness. She is in the area today and is asking if she can come and burr picker these letters Theletter about the air [...] HECTOR [address] [facility] [address] [place] [address] Samm Ledesma, ROSS CARRIER DRIVER [address] [facility] [address] [place], [place] [id number] 03/10/2025 12:30 PM EDT Appointment [place] [address] Tacho Echavarria MD [address] [place] [address] 03/10/2025 1:00 PM EDT Appointment [facility] Medical Oncology [place], [place] 3833217 Tacho Echavarria MD [address] [place] [address] 04/29/2025 9:15 AM EDT Appointment [place] [address] Batool Celis MD [address] [place] [address] [place] [address] 05/19/2025 2:15 PM EST Office Visit [place] [address] [place] [address] Sin Tran MD [address] [place] [address] 08/12/2025 10:40 AM EST Appointment [facility] Women[facility] [place] [facility] [place] [address] Matt Ulrich MD [address] [place] [address] documented as of this encounter Goals [...] documented as of this encounter Care Teams Electrotyper Apprentice Relationship Specialty [place] [address] [place] [phone] PCP - General 06/21/10 Arlyn Schmidt MD [address] [place] [address] Consulting Physician Internal Medicine-Endocrinology, Diabetes & Metabolism 11/28/20 Tacho Echavarria MD 1 [place] [address] Internal Medicine-Medical Oncology 11/12/23 Matt Ulrich MD 1 [place] [address] Surgery-Surgical Oncology 12/04/23 Eze Brock Pastoral Care 12/13/23 Annette Walker, RADIO TOWER TECHNICIAN Wirer Helper 05/13/24 Batool Celis MD 1 [facility] [place] [address] Radiation Oncologist Radiology-Radiation Oncology 06/08/24 documented as of this encounter
--- OUTSIDE RECORDS SUMMARY | 2025-03-02 07:22 | XMS_ITS | Encounter Summary ---
Author Organization [place] [address] Care Team Providers Care Natural Remedy Consultant Name Role Phone Chetna Cedeno MD Primary Care Provider [phone] Arlyn Schmidt MD Unavailable [phone] Tacho Echavarria MD Unavailable [phone] Matt Ulrich MD Unavailable [phone] Eze Brock Unavailable Annette Walker Unavailable [phone] Batool Celis MD Unavailable [phone] Encounter Details Date Type Department Care Team (Late st Contact Info) Description 02/10/2025 Orders Only [facility] [place] [address] Shilpa Clnie, RN Social History Tobacco Use Types Packs/Day [...] your doctor or pharmacy? Never 11/07/2023 [facility] Utilities Answer Date Recorded In the past 12 months has [employer], oil, or water [employer] threatened to shut off services in [...] 07/07/2024 [facility] of Occupat ional [facility] - Occupational Stress Questionnaire Answer Date Recorded [...] in a correction (including now)? No 11/07/2023 [facility] [address] [place] [address] Samm Ledesma, LOTTERY MANAGER [address] [facility] [address] [address] [place], [place] [id number] 03/10/2025 12:30 PM EDT Appointment [facility] [place], [place] 37[address]117 Tacho Echavarria MD [address] [place] [address] 03/10/2025 1:00 PM EDT Appointment [facility] Medical Oncology [place], [place] 8243317 Tacho Echavarria MD [address] [place] [address] 04/29/2025 9:15 AM EDT Appointment [facility] [place] [address] Batool Celis MD [address] [place] [address] [place] [address] 05/19/2025 2:15 PM EST Office Visit [facility] [address] [place] [address] [address] [place] [address] Sin Tran MD [address] [place] [address] 08/12/2025 10:40 AM EST Appointment [facility] Women's Wellness [place] One [facility] [place] [address] Matt Ulrich MD [address] [place] [address] DR MUSA Hameed [facility] [place] [address] documented as of this [...] documented as of this encounter Care Teams Natural Remedy Consultant Relationship Specialty [place] [address] [place] [address] PCP - General 06/21/10 Arlyn [place] MD [address] [place], [place] [address] Consulting Physician Internal Medicine-Endocrinology, Diabetes & Metabolism 11/28/20 Tacho Echavarria MD 1 [place] [address] Internal Medicine-Medical Oncology 11/12/23 Matt Ulrich MD 1 [place], [place] 64[address] Surgery-Surgical Oncology 12/04/23 Eze Brock Pastoral Care 12/13/23 Annette Walker, [place] FISHERMAN Unit Clerk 05/13/24 Batool Celis MD 1 [facility] [place], [place] [phone] Radiation Oncologist Radiology-Radiation Oncology 06/08/24 documented as of this encounter
--- OUTSIDE RECORDS SUMMARY | 2025-03-02 07:22 | XMS_ITS | Encounter Summary ---
Author [place] [address] Care Team Providers Care General Administrator Name Role Phone Chetna Cedeno MD Primary Care Provider [phone] Arlyn [place] MD Unavailable [phone] Tacho Echavarria MD Unavailable [phone] Matt Ulrich MD Unavailable [phone] Eze Brock Unavailable Annette Walker Unavailable [phone] Batool Celis MD Unavailable [phone] Reason for Visit * Reason Onset Date Comments Medication Refill 02/08/2025 Encounter Details Date Type Department Care Team (Late st Contact Info) Description 02/08/2025 Refill [facility] Medical Oncology [place], [place] [phone] Tacho Echavarria MD [address] [place] [address] [id number] Medication Refill Social History Tobacco Use Types [...] health care facility (including now)? No 11/07/2023 [facility] IP Transportation [...] [facility] [address] [place] [address] Samm Ledesma APRN [address] [facility] [facility] [address] [place], [place] [id number] 03/10/2025 12:30 PM EDT Appointment [place] [address] Tacho Echavarria MD [address] [place] [address] [id number] 03/10/2025 1:00 PM EDT Appointment [place] [address] Tacho Echavarria MD [address] [place] [address] [id number] 04/29/2025 9:15 AM EDT Appointment [place] [address] Batool Celis MD [address] [place] [address] 05/19/2025 2:15 PM EST Office Visit [address] [address] Sin Tran MD [address] [place] [address] 08/12/2025 10:40 AM EST Appointment [facility] Women's Wellness [facility] [place] [address] Matt Ulrich MD [address] [place] [address] [address] [place] [id number] documented as of this encounter Goals Goal [...] as of this encounter Care Teams General Administrator Relationship Specialty [place] [address] [place] [address] PCP - General 06/21/10 Arlyn [place] MD [address] [place] [address] Consulting Physician Internal Medicine-Endocrinology, Diabetes & Metabolism 11/28/20 Tacho Echavarria MD [address] [place] [address] Internal Medicine-Medical Oncology 11/12/23 Matt Ulrich MD 1 [place] [address] Surgery-Surgical Oncology 12/04/23 Delmy Eze Pastoral Care 12/13/23 Annette Walker, GEOSCIENCES ASSOCIATE PROFESSOR Inspector Cold Working 05/13/24 Batool Celis MD 1 [facility] [place] [address] Radiation Oncologist Radiology-Radiation Oncology 06/08/24 documented as of this encounter
--- OUTSIDE RECORDS SUMMARY | 2025-03-02 07:23 | XMS_ITS | Encounter Summary ---
Author Organization [place] [address] Care Team Providers Care Glove Finisher Name Role Phone Chetna Cedeno MD Primary Care Provider [phone] Arlyn Schmidt MD Unavailable [phone] Tacho Echavarria MD Unavailable [phone] Matt Ulrich MD Unavailable [phone] Eze Brock Unavailable Annette Walker CAR ICER Unavailable [phone] Batool Celis MD Unavailable [phone] Encounter Details Date Type Department Care Team (Late st Contact Info) Description 01/29/2025 Social Work [facility] Cancer Care [facility] [place] [address] Sonny Fleming, CAR ICER Social History Tobacco Use Types Packs/Day Years [...] th e electric, gas, oil, or water [employer] threatened to shut off services in your [...] Date Recorded PHQ-2 Total Score 5 07/07/2024 [facility] [place] of Occupat ional Health - Occupational Stress [...] now)? No 11/07/20[address] [facility] IP Transportation Answer D ate Recorded In [...] - 01/29/2025 3:12 PM EDT 01/29/25 1511 [place] Blanket Assessment Referred By phone call Disease/[place] Senior Bioinformatics Scientist Assignment Breast cancer Referral Location: [facility] Reason for Referral transportation Identified Needs Adjustment to illness;Transportation Social Work Interventions Transportation;Brief Couseling/Support;Education/Information FARHAD Romo received a call from pt stating that she is in need of a waiver for transportation from her health insurance as she is not feeling well enough to drive to her appointments. MIRROR SPECIALIST followed up with MAGAN Reid to discuss [...] [facility] [address] [place] [address] Samm Ledesma APRN [address] [facility] [address] [place] [address] 03/10/2025 12:30 PM EDT Appointment [place] [address] Tacho Echavarria MD 1 [place], [place] [phone] 03/10/2025 1:00 PM EDT Appointment [place] [address] Tacho Echavarria MD [address] [place] [address] 04/29/2025 9:15 AM EDT Appointment [place] [address] Batool Celis MD [address] [place] [address] [place] [address] 05/19/2025 2:15 PM EST Office Visit [address] [address] Sin Tran MD [address] [place] [address] 08/12/2025 10:40 AM EST Appointment [facility] Women's Wellness [facility] [place] [address] Matt Ulrich MD [address] [place] [address] documented as of this encounter Goals Goal [...] documented as of this encounter Care Teams Glove Finisher Relationship Specialty [place] [address] [place] [address] PCP - General 06/21/10 Arlyn [place] MD [address] [place], [place] [id number] Consulting Physician Internal Medicine-Endocrinology, Diabetes & Metabolism 11/28/20 Tacho Echavarria MD 1 [place] [address] Internal Medicine-Medical Oncology 11/12/23 Matt Ulrich MD 1 [place] [address] Surgery-Surgical Oncology 12/04/23 Eze Brock Pastoral Care 12/13/23 Annette Walker MSW Senior Bioinformatics Scientist 05/13/24 Batool Celis MD 1 [facility] [place] [address] Radiation Oncologist Radiology-Radiation Oncology 06/08/24 documented as of this encounter
--- OUTSIDE RECORDS SUMMARY | 2025-03-02 07:23 | XMS_ITS | Encounter Summary ---
Author Organization [place] [address] Care Team Providers Care Cable Tool Driller Name Role Phone Chetna Cedeno MD Primary Care Provider [phone] Arlyn Schmidt MD Unavailable [phone] Tacho Echavarria MD Unavailable [phone] Matt Ulrich MD Unavailable [phone] Eze Brock Unavailable Annette Walker Unavailable [phone] Batool Cleis MD Unavailable [phone] Reason for Visit * Reason Comments Pharmacy Migraine Medication Management Qulipta Encounter Details Date Type Department Care Team (Latest Contact Info) Description 01/28/2025 Specialty Pharmacy [facility] [address] [place] [address] Sheridan Arellano CPhT Pharmacy Migraine [...] th e electric, gas, oil, or water [employer] threatened to shut off services in your [...] Total Score 5 07/07/2024 [facility] [place] of Occupat ional Health - Occupational Stress [...] [facility] (including now)? No [facility]/07[facility]2023 [facility] [...] Assessment Author No 12/06/2022 2:08 PM EDT Maacrena Marion CCMA * Does this person have [...] refills of Qulipta. Copay amount: $0 Sent Bravofly message. Patient informed of copay. * Aaliyah [...] HECTOR [address] [facility] [address] [place] [address] Samm Ledesma APRN [address] [facility] [address] [place] [address] 03/10/2025 12:30 PM EDT Appointment [place] [address] Tacho Echavarria MD [address] [place] [address] 03/10/2025 1:00 PM EDT Appointment [facility] Care Medical Oncology [place], [place] 618[address]17 Tacho Echavarria MD 1 [place], [place] [phone] 04/29/2025 9:15 AM EDT Appointment [place] [address] Batool Celis MD [address] [facility] [address] CANCER CARE [place], [place] [phone] 05/19/2025 2:15 PM EST Office Visit [address] [address] Sin Tran MD [address] [place] [address] 08/12/2025 10:40 AM EST Appointment [facility] Women's Wellness [facility] [place] [phone] Matt Ulrich MD [address] [place] [address] 254 [place] [address] documented as of this encounter Goals Goal [...] documented as of this encounter Care Teams Cable Tool Driller Relationship Specialty [place] [address] [place] [address] PCP - General 06/21/10 Arlyn Schmidt MD [address] [place] [address] Consulting Physician Internal Medicine-Endocrinology, Diabetes & Metabolism 11/28/20 Tacho Echavarria MD 1 [place], [place] [phone] Internal Medicine-Medical Oncology 11/12/23 Matt Ulrich MD 1 [place], [place] [id number] Surgery-Surgical Oncology 12/04/23 Eze Brock Pastoral Care 12/13/23 Annette Walker MSW Museum Tour Guide 05/13/24 Batool Celis MD [address] [facility] [place] [address] Radiation Oncologist Radiology-Radiation Oncology 06/08/24 documented as of this encounter
--- OUTSIDE RECORDS SUMMARY | 2025-03-02 07:23 | XMS_ITS | Encounter Summary ---
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) Procedures PHARMACOGENOMIC PANEL Aury Delgado MD 1 [place] [address] Phone: tel: fax: Referral ID Status Reason Start Date Expiration Date Visits Requested Visits Authorized [id number] Authorization Not Needed 01/21/2025 01/21/2026 1 1 Encounter Details Date Type Department Care Team (Late st Contact Info) Description 01/21/2025 Orders Only [facility] 1 [place] [address] Osvaldo Johnson, Clerical Staff Invasive ductal carcinoma [...] Score 5 07/07/2024 [facility] [place] of Occupat ional Health - Occupational Stress [...] health care facility (including now)? No 11/07/2023 [facility] IP Transportation Answer D ate Recorded [...] [facility] [address] [place] [address] Samm Ledesma APRN [address] [facility] [facility] [address] [place] [address] 03/10/2025 12:30 PM EDT Appointment [place] [address] Tacho Echavarria MD [address] [place] [address] 03/10/2025 1:00 PM EDT Appointment [facility] Medical Oncology [place], [place] [phone] Tacho Echavarria MD [address] [place] [address] 04/29/2025 9:15 AM EDT Appointment [facility] ONC [place] [id number] Batool Celis MD [address] [facility] [place] [address] 05/19/2025 2:15 PM EST Office Visit [facility] [address] [facility] [address] [facility] [address] [phone] Sin Tran MD [address] [place] [address] [place] [id number] 08/12/2025 10:40 AM EST Appointment [facility] Women's Wellness [facility] [place] [phone] Matt Ulrich MD 20 [facility] 254 [place] [address] documented as of this encounter Goals Goal Patient Goal Type Associated Problems Recent Progress Patient-Stated? Author Blood Pressure < 140/90 Blood Pressure 121/77(02/04 2:04 PM EDT) No Chetna Cedeno MD Breast [facility] Breast Health On track(2024 11:27 AM EDT) No Jasmin Porter, RAUL Note: Patient acknowledges understanding of new diagnosis, plan of care, available resources and how to contact Nurse Navigator with any future questions or concerns. Breast [facility] Breast Health Not on track(2024 [...] this encounter Results * PHARMACOGENOMIC PANEL (01/06/2025) [facility] Pharmacogenomic Lab Comments See Comment [facility] Comment:Hemizygous males and homozygous females are reported as HTR2C CC. Pharmacogenomic Lab Method See Comment CLARA Comment: This test was developed, and its performance characteristics determined by [facility], a clinical laboratory located at [address] [place] [address]. These tests have not been cleared or approved by the U.S. Food and Drug Administration. The FDA does not require this test to go through premarket FDA review. [facility] is certified under CLIA-88 and accredited by the [employer] as qualified to perform high-complexity testing. This test is approved for clinical use by the [facility] of [facility]. This test should not be regarded as investigational or for research. *Genomic DNA was analyzed by PCR using [employer] TaqMan and/or [employer] probe-based methods to interrogate the variant locations [...] are associated with more than one haplotype, [facility] infers and reports the most likely diplotype [...] Call. *The variant detection methods validated by [facility] provide >99.9% accuracy for the [...] or pharmacogenomic specialist. For additional support, contact [facility] through the website or by calling [phone]. Blood 01/06/2025 01/22/2025 Narrative [facility] - 01/27/2025 This result has genomic variants that were not included in this document. 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)- Primary documented in this encounter Additional Health Concerns Assessment Noted Time PHQ-9 Depression Total Score: 17 024 8:39 AM EST PHQ-2 Depression Total Score: 5 07/07/20 24 8:39 AM EST documented as of this encounter Care Teams Mate Fishing Vessel Relationship Specialty [place] [address] [place] [address] PCP - General 06/21/10 Arlyn Schmidt MD [address] [place] [address] Consulting Physician Internal Medicine-Endocrinology, Diabetes & Metabolism 11/28/20 Tacho Echavarria MD [address] [place] [address] Internal Medicine-Medical Oncology 11/12/23 Matt Ulrich MD 1 [place] [address] Surgery-Surgical Oncology 12/04/23 Eze Brock Pastoral Care 12/13/23 Annette Walker, [facility] Firewall Administrator 05/13/24 Batool Celis MD 1 [facility] [place] [address] Radiation Oncologist Radiology-Radiation Oncology 06/08/24 documented as of this encounter
--- OUTSIDE RECORDS SUMMARY | 2025-03-02 07:23 | XMS_ITS | Encounter Summary ---
Author Organization [place] [address] Care Team Providers Care Motor Vehicle Dispatcher Name Role Phone Chetna Cedeno MD Primary Care Provider [phone] Arlyn Schmidt MD Unavailable [phone] Tacho Echavarria MD Unavailable [phone] Matt Ulrich MD Unavailable [phone] Eze Brock Unavailable Annette Walker Unavailable [phone] Batool Celis MD Unavailable [phone] Encounter Details Date Type Department Care Team (Late st Contact Info) Description 01/18/2025 Telephone [facility] Oncology [place], [place] [phone] Tacho Echavarria MD [address] [place] [address] [phone] Social History Tobacco Use Types Packs/Day Years [...] Total Score 5 07/07/2024 [facility] [place] of Occupat ional Health - Occupational Stress [...] in a halfway (including now)? No 11/07/2023 [facility] [...] Assessment Author No 12/06/2022 2:08 PM OBEDT Macarean Marion CCMA * Does this person have [...] her apartment. Letter created and sent through [employer] documented in this encounter Plan of Treatment Upcoming Encounters Date Type Department Care Team (Late st Contact Info) Description 03/09/2025 12:45 PM EDT Procedure visit [facility] [address] [facility] [address] [place] [address] Samm Ledesma APRN [address] [place] [address] 03/10/2025 12:30 PM EDT Appointment [place] [address] Tacho Echavarria MD [address] [place] [address] [id number] 03/10/2025 1:00 PM EDT Appointment [facility] [place], [place] [address] Tacho Echavarria MD [address] [place] [address] [phone] 04/29/2025 9:15 AM EDT Appointment [facility] RAD ONC [place], [place] [phone] Batool Celis MD [address] [facility] [address] CANCER CARE [place], [place] [phone] 05/19/2025 2:15 PM EST Office Visit [facility] [address] [place] [address] [address] [place] [address] Sin Tran MD [address] [place] [address] 08/12/2025 10:40 AM EST Appointment [facility] Women's Wellness [place] [facility] [place] [phone] Matt Ulrich MD 20 [facility] 254 [place] [phone] documented as of this encounter Goals Goal Patient Goal Type Associated Problems Recent Progress Patient-Stated? Author Blood Pressure < 140/90 Blood Pressure 121/77(02/04 2:04 PM EDT) No Chetna Cedeno MD Breast [facility] Breast Health On track(2024 11:27 AM EDT) [...] documented as of this encounter Care Teams Motor Vehicle Dispatcher Relationship Specialty [place] [address] [place] [address] PCP - General 06/21/10 Arlyn Schmidt MD [address] [place], [place] [phone] Consulting Physician Internal Medicine-Endocrinology, Diabetes & Metabolism 11/28/20 Tacho Echavarria MD 1 [place], [place] 2201417 Internal Medicine-Medical Oncology 11/12/23 Matt Ulrich MD 1 [place], [place] [phone] Surgery-Surgical Oncology 12/04/23 Eze Brock Pastoral Care 12/13/23 Annette Walker MSW Ultrasound Technologist Sonographer 05/13/24 Batool Celis MD 1 [facility] CANCER [place], [place] [phone] Radiation Oncologist Radiology-Radiation Oncology 06/08/24 documented as of this encounter
--- OUTSIDE RECORDS SUMMARY | 2025-03-02 07:23 | XMS_ITS | Encounter Summary ---
Author Organization [place] [address] Care Team Providers Care Monkey Breeder Name Role Phone Chetna Cedeno MD Primary Care Provider [phone] Arlyn Schmidt MD Unavailable [phone] Tacho Echavarria MD Unavailable [phone] Matt Ulrich MD Unavailable [phone] Eze Brock Unavailable Annette Walker Unavailable [phone] Batool Celis MD Unavailable [phone] Reason for Visit * Reason Comments Oncology Nurse Navigation Encounter Details Date Type Department Care Team (Late st Contact Info) Description 01/29/2025 Patient Outreach [facility] [address] [place], [place] [phone] Shilpa Cline, RN Oncology Nurse Navigation Social [...] th e electric, gas, oil, or water [employer] threatened to shut off services in your [...] Date Recorded PHQ-2 Total Score 5 07/07/2024 [facility] [place] of Occupat ional Health - Occupational Stress [...] any time in the past 12 m [facility], were you homeless or living in a fci (including now)? No 11/07/2023 [facility] IP Transportation Answer D ate Recorded [...] [facility] [address] [place] [address] Samm Ledesma APRN [address] [address] [address] [place] [address] 03/10/2025 12:30 PM EDT Appointment [place] [address] Tacho Ecahvarria MD [address] [place] [address] 03/10/2025 1:00 PM EDT Appointment [facility] [place] [address] Tacho Echavarria MD [address] [place] [address] 04/29/2025 9:15 AM EDT Appointment [facility] RAD ONC [place], [place] [phone] Batool Celis MD 1 [facility] [place] [address] 05/19/2025 2:15 PM EST Office Visit [address] [place] [address] Sin Tran MD [address] [place] [address] 08/12/2025 10:40 AM EST Appointment [facility] Women's Wellness [place] [address] [facility] [place] [address] Matt Ulrich MD 20 [facility] 254 [place] [id number] documented as of this encounter Goals Goal [...] documented as of this encounter Care Teams Monkey Breeder Relationship Specialty [place] [address] [place] [address] PCP - General 06/21/10 Arlyn Schmidt MD [address] [place], [place] 6[address] Consulting Physician Internal Medicine-Endocrinology, Diabetes & Metabolism 11/28/20 Tacho Echavarria MD 1 [place] [address] Internal Medicine-Medical Oncology 11/12/23 Matt Ulrich MD 1 [place] [address] Surgery-Surgical Oncology 12/04/23 Eze Brock Pastoral Care 12/13/23 Annette Walker, ARACELI [employer] Truck Driver 05/13/24 Batool Celis MD 1 [facility] [place] [address] Radiation Oncologist Radiology-Radiation Oncology 06/08/24 documented as of this encounter
--- OUTSIDE RECORDS SUMMARY | 2025-03-02 07:23 | XMS_ITS | Encounter Summary ---
Author Organization [place] [address] Care Team Providers Care Kettle Skimmer Name Role Phone Chetna Cedeno MD Primary Care Provider [phone] Arlyn Schmidt MD Unavailable [phone] Tacho Echavarria MD Unavailable [phone] Matt Ulrich MD Unavailable [phone] Eze Brock Unavailable Annette Walker Unavailable [phone] Batool Celis MD Unavailable [phone] Encounter Details Date Type Department Care Team (Late st Contact Info) Description 01/28/2025 Orders Only [facility] Medical Oncology [place], [place] [phone] Tacho Echavarria MD [address] [place] [phone] Invasive ductal carcinoma of breast, female, right [...] Total Score 5 07/07/2024 [facility] [place] of Occupat ional Health - Occupational Stress [...] in a retirement (including now)? No 11/07/2023 [facility] IP Transportation Answer D ate [...] HECTOR [address] [facility] [address] [place], [place] [phone] Samm Ledesma APRN [address] [facility] [address] [place], [place] [phone] 03/10/2025 12:30 PM EDT Appointment [place] [address] Tacho Echavarria MD [address] [place] [address] 03/10/2025 1:00 PM EDT Appointment [facility] Medical Oncology [place], [place] [phone] Tacho Echavarria MD [address] [place] [address] [phone] 04/29/2025 9:15 AM EDT Appointment [facility] [place] [address] Batool Celis MD [address] [place] [address] [place] [address] 05/19/2025 2:15 PM EST Office Visit [place] [address] [place] [address] Sin Tran MD [address] [place], [place] [address] 08/12/2025 10:[address] [facility] Women's Wellness [place] [facility] [address] Matt Ulrich MD [address] [facility] [facility] [address] [place] [address] documented as of this encounter Goals Goal [...] pg/mL 02/04/2025 4:31 PM EDT [facility] [employer] Folate 6.16 >=4.80 ng/mL 02/04/2025 4:31 PM EDT [facility] Blood VENOUS BLOOD / Unknown Venipuncture / Unknown 02/04/2025 2:03 PM EDT 02/04/2025 2:03 PM EDT Narrative [facility] [employer] - 02/04/2025 4:31 PM EDT Ingestion of haroon doses of biotin (>5 mg/day) taken within 8 hours of drawing blood sample can interfere with this immunoassay test. Tacho Echavarria MD CHEMISTRY ORDERABLES Final Result [facility] [employer] [address] [facility] [address], [place] [address] * (ABNORMAL) CBC WITH DIFF (02/04/2025 2:03 PM EDT) WBC 8.1 3.7 - 10.3 x10(3)/mc L 02/04/2025 2:07 PM EDT [facility] RBC 2.95(L) 3.90 - 5.20 x10(6)/mc L 02/04/2025 2:07 PM EDT [facility] Hgb 9.4(L) 11.2 - 15.7 g/dL 02/04/2025 2:07 PM EDT [facility] Hct 28.1(L) 34.0 - 45.0 % 02/04/2025 2:07 PM EDT [facility] MCV 95.3 80.0 - 100.0 fL 02/04/2025 2:07 PM EDT [facility] MCH 31.9 26.0 - 34.0 pg 02/04/2025 2:07 PM EDT [facility] MCHC 33.5 30.7 - 35.5 g/dL 02/04/2025 2:07 PM EDT [facility] RDW 15.0(H) <=14.9 % 02/04/2025 2:07 PM EDT [facility] Platelet 163 155 - 369 x10(3)/mc L 02/04/2025 2:07 PM EDT [facility] MPV 8.8 8.8 - 12.5 fL 02/04/2025 2:07 PM EDT [facility] Neut # Prelim 5.6 1.6 - 6.1 x10(3)/mc L 02/04/2025 2:07 PM EDT [facility] Comment:Preliminary automate d absolute neutrophil count. Value may change if manual differential is indicated. Neut Percent 68.4 % 02/04/2025 2:07 PM EDT [facility] Comment:Neutrophils equals s egs plus bands Imm Gran% 0.2 % 02/04/2025 2:07 PM EDT [facility] Comment:Automated count of m etamyelocytes, myelocytes and promyelocytes. Lymph Percent 23.4 % 02/04/2025 2:07 PM EDT [facility] [place] Percent 5.7 % 02/04/2025 2:07 PM EDT [facility] Eos Percent 2.1 % 02/04/2025 2:07 PM EDT [facility] Baso Percent 0.2 % 02/04/2025 2:07 PM EDT [facility] Neut # 5.6 1.6 - 6.1 x10(3)/mc L 02/04/2025 2:07 PM EDT [facility] Comment:Neutrophils equals s egs plus bands IMMGRAN# 0.0 0.0 - 0.1 x10(3)/mc L 02/04/2025 2:07 PM EDT [facility] Comment:Automated count of m etamyelocytes, myelocytes and promyelocytes. An absolute IG <0.1 is reported as 0.0. Lymph # 1.9 1.2 - 3.9 x10(3)/mc L 02/04/2025 2:07 PM EDT [facility] [place] # 0.5 0.3 - 0.9 x10(3)/mc L 02/04/2025 2:07 PM EDT [facility] Eos# 0.2 0.0 - 0.5 x10(3)/mc L 02/04/2025 2:07 PM EDT [facility] Baso # 0.0 0.0 - 0.1 x10(3)/mc L 02/04/2025 2:07 PM EDT [facility] Blood VENOUS BLOOD / Unknown Venipuncture / Unknown 02/04/2025 2:03 PM EDT 02/04/2025 2:03 PM EDT Tacho Echavarria MD HEMATOLOGY ORDERABLES Final Result [facility] 1 [place] [address] * IRON+TIBC (02/04/2025 2:02 PM EDT) Iron 82 30 - 160 mcg/dL 02/04/2025 2:59 PM EDT [facility] Transferrin 279 200 - 360 mg/dL 02/04/2025 2:59 PM EDT [facility] Saturation 21 20 - 50 % 02/04/2025 2:59 PM EDT [facility] TIBC 391 250 - 400 mcg/dL 02/04/2025 2:59 PM EDT [facility] Blood VENOUS BLOOD / Unknown Venipuncture / Unknown 02/04/2025 2:02 PM EDT 02/04/2025 2:02 PM EDT [facility] Radha Echavarria MD CHEMISTRY ORDERABLES Final Result Performing Organization Address [facility] de Phone Number [facility] 1 [place] [address] [facility] [address] [facility], [place] [address] * (ABNORMAL) COMPREHENSIVE METABOLIC PANEL (02/04/2025 2:02 PM EDT) [facility] Signature Sodium 142 136 - 145 mmol/L 02/04/2025 2:28 PM EDT [facility] Potassium 3.3(L) 3.5 - 5.0 mmol/L 02/04/2025 2:28 PM EDT [facility] Chloride 108(H) 98 - 107 mmol/L 02/04/2025 2:28 PM EDT [facility] Total CO2 19(L) 22 - 29 mmol/L 02/04/2025 2:28 PM EDT [facility] Anion Gap 15 7 - 16 mmol/L 02/04/2025 2:28 PM EDT [facility] Calcium 8.6 8.6 - 10.4 mg/dL 02/04/2025 2:28 PM EDT [facility] Glucose Lvl 134(H) 70 - 99 mg/dL 02/04/2025 2:28 PM EDT [facility] BUN 12 6 - 20 mg/dL 02/04/2025 2:28 PM EDT [facility] Creatinine 0.78 0.51 - 1.30 mg/dL 02/04/2025 2:28 PM EDT [facility] Albumin 3.8 3.5 - 5.2 gm/dL 02/04/2025 2:28 PM EDT [facility] Total Protein 6.0(L) 6.4 - 8.3 gm/dL 02/04/2025 2:28 PM EDT [facility] Bili Total 0.3 0.2 - 1.3 mg/dL 02/04/2025 2:28 PM EDT [facility] ALT 8 <=41 U/L 02/04/2025 2:28 PM EDT [facility] AST 12 <=40 U/L 02/04/2025 2:28 PM EDT [facility] Alk Phos 95 36 - 123 U/L 02/04/2025 2:28 PM EDT [facility] eGFR (CKD-EPIcr 2020) 88 >=60 mL/min/1.7 3 m2 02/04/2025 2:28 PM EDT [facility] Comment:Estimated GFR was ca lculated using the CKD-EPIcr (2020) equation refit without race. The equation is recommended by the National Kidney Foundation - [place] [employer] of Nephrology Task Force. Blood VENOUS BLOOD / Unknown Venipuncture / Unknown 02/04/2025 2:02 PM EDT 02/04/2025 2:02 PM EDT Tacho Echavarria MD CHEMISTRY ORDERABLES Final Result [facility] 1 [place] [address] documented in this encounter Visit Diagnoses Diagnosis Invasive ductal carcinoma of breast, female, right (HCC)- Primary documented in this encounter Additional Health Concerns Assessment Noted Time PHQ-9 Depression Total Score: 17 024 8:39 AM EST PHQ-2 Depression Total Score: 5 07/07/20 8:39 AM EST documented as of this encounter Care Teams Kettle Skimmer Relationship Specialty [place] [address] [place] [address] PCP - General 06/21/10 Arlyn Schmidt MD [address] [place] [address] Consulting Physician Internal Medicine-Endocrinology, Diabetes & Metabolism 11/28/20 Tacho Echavarria MD 1 [place] [address] Internal Medicine-Medical Oncology 11/12/23 Matt Ulrich MD 1 [place] [phone] Surgery-Surgical Oncology 12/04/23 Eze Brock Pastoral Care 12/13/23 Annette Walker, ARACELI Mail Processing Machine Operator 05/13/24 Batool Celis MD 1 [facility] [place] [address] Radiation Oncologist Radiology-Radiation Oncology 06/08/24 documented as of this encounter
--- OUTSIDE RECORDS SUMMARY | 2025-03-02 07:23 | XMS_ITS | Encounter Summary ---
Author [place] [address] Care Team Providers Care Preventive Medicine Physician Name Role Phone Chetna Cedeno MD Primary Care Provider [phone] Arlyn Schmidt MD Unavailable [phone] Tacho Echavarria MD Unavailable [phone] Matt Ulrich MD Unavailable [phone] Eze Brock Unavailable Annette [place] Unavailable [phone] Batool Celis MD Unavailable [phone] Reason for Visit * Reason Onset Date Comments Symptom Call 01/29/2025 Diarrhea, body a ches, vomiting Encounter Details Date Type Department Care Team (Late st Contact Info) Description 01/29/2025 [facility]phone [facility] [place], [place] [id number] Tacho Echavarria MD [address] [place] [address] [id number] Symptom Call (Diarrhea, body aches, vomiting) Social [...] Date Recorded PHQ-2 Total Score 5 07/07/2024 [facility] [place] of Occupat ional Health - Occupational Stress [...] [facility] IP Transportation Answer D ate [...] the Patient seen at:[facility] Preferred call back number:[phone] RN is aware documented in this encounter Plan of Treatment Upcoming Encounters Date Type Department Care Team (Late st Contact Info) Description 03/09/2025 12:45 PM EDT Procedure visit [facility] [address] [facility] [address] [place] [address] Samm Ledesma APRN [address] [facility] [address] [place] [address] 03/10/2025 12:30 PM EDT Appointment [place] [address] Tacho Echavarria MD [address] [place] [address] 03/10/2025 1:00 PM EDT Appointment [facility] [place], [place] 5375117 Tacho Echavarria MD [address] [place] [address] 04/29/2025 9:15 AM EDT Appointment [facility]C [place] [id number] Batool Celis MD [address] [facility] [place] [address] 05/19/2025 2:15 PM EST Office [facility] [place] [address] [facility] 401 [facility] [address] [place] [address] Sin Tran MD [address] [place] [address] [place] [address] 08/12/2025 10:40 AM EST Appointment [facility] [place] [phone] Matt Ulrich MD [address] [facility] 254 [place] [address] documented as of this encounter Goals Goal [...] documented as of this encounter Care Teams Preventive Medicine Physician Relationship Specialty [place] [address] [place] [address] PCP - General 06/21/10 Arlyn Schmidt MD [address] [place] [address] Consulting Physician Internal Medicine-Endocrinology, Diabetes & Metabolism 11/28/20 Tacho Echavarria MD 1 [place] [address] Internal Medicine-Medical Oncology 11/12/23 Matt Ulrich MD 1 [place] [address] Surgery-Surgical Oncology 12/04/23 Eze Brock Pastoral Care 12/13/23 Annette [place], FREIGHT BRAKE OPERATOR Hydrodynamics Professor 05/13/24 Batool Celis MD 1 [facility] [place] [address] Radiation Oncologist Radiology-Radiation Oncology 06/08/24 documented as of this encounter
--- OUTSIDE RECORDS SUMMARY | 2025-03-02 07:23 | XMS_ITS | Encounter Summary ---
Author Organization [place] [address] Care Team Providers Care Metal Control Coordinator Name Role Phone Chetna Cedeno MD Primary Care Provider [phone] Arlyn Schmidt MD Unavailable [phone] Tacho Echavarria MD Unavailable [phone] Matt Ulrich MD Unavailable [phone] Eze Brock Unavailable Annette [place] Unavailable [phone] Batool Celis MD Unavailable [phone] Encounter Details Date Type Department Care Team (Latest Contact Info) Description 01/27/2025 Results Follow-Up [facility] 1 [place] [address] Benito Snell, PharmD PHARMACOGENOMIC PANEL [...] from your doctor or pharmacy? Never 11/07/2023 [facility] Utilities Answer Date Recorded In the [...] 5 07/07/2024 [facility]at ional [facility] - Occupational Stress Questionnaire Answer [...] in a fci (including now)? No 11/07/2023 [facility] IP [...] of Assessment Author No 12/06/2022 2:08 PM OBDET Macarena Marion CCMA * Is the person [...] [facility] [address] [place] [address] Samm Ledesma, DIRECTOR OF KIDS [address] [place], [place] [id number] 03/10/2025 12:30 PM EDT Appointment [place] [address] Tacho Echavarria MD [address] [place] [address] 03/10/2025 1:00 PM EDT Appointment [facility] [place] [address] Tacho Echavarria MD [address] [place] [address] 04/29/2025 9:15 AM EDT Appointment [place] [address] Batool Celis MD [address] [place] [address] [place] [address] 05/19/2025 2:15 PM EST Office Visit [facility] [address] [place] [address] Sin Tran MD [address] [place] [address] 08/12/2025 10:40 AM EST Appointment [facility] [place] [facility] 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 Primary hypercoagulable state documented in this encounter Additional Health Concerns Assessment Noted Time PHQ-9 Depression Total Score: 17 024 8:39 AM EST PHQ-2 Depression Total Score: 5 07/07/20 24 8:39 AM EST documented as of this encounter Care Teams Metal Control Coordinator Relationship Specialty [place] [address] [place] [address] PCP - General 06/21/10 Arlyn Schmidt MD [address] [place] [address] Consulting Physician Internal Medicine-Endocrinology, Diabetes & Metabolism 11/28/20 Tacho Echavarria MD 1 [place] [id number] Internal Medicine-Medical Oncology 11/12/23 Matt Ulrich MD 1 [place] [id number] Surgery-Surgical Oncology 12/04/23 Eze Brock Pastoral Care 12/13/23 Annette [place], EXCELSIOR CUTTER Gun Barrel Finisher 05/13/24 Batool Celis MD 1 [facility] [place] [address] Radiation Oncologist Radiology-Radiation Oncology 06/08/24 documented as of this encounter
--- OUTSIDE RECORDS SUMMARY | 2025-03-02 07:23 | XMS_ITS | Encounter Summary ---
Author Organization [place] [address] Care Team Providers Care Boat Motor Mechanic Name Role Phone Chetna Cedeno MD Primary Care Provider [phone] Arlyn Schmidt MD Unavailable [phone] Tacho Echavarria MD Unavailable [phone] Matt Ulrich MD Unavailable [phone] Eze Brock Unavailable Annette [place] Unavailable [phone] Batool Celis MD Unavailable [phone] Reason for Visit * Reason Comments Medication Refill Encounter Details Date Type Department Care Team (Late st Contact Info) Description 01/15/2025 Refill [facility] [address] [place] [place] [address] [place] [address] [place] [address] Medication Refill Social History Tobacco [...] your doctor or pharmacy? Never 11/07/2023 [facility] Utilities Answer Date Recorded In the [...] in a mcc (including now)? No 11/07/2023 [facility] IP Transportation Answer D ate [...] HECTOR [address] [facility] [facility] [address] [place] [address] Samm Ledesma [employer] [address] [facility] [address] [place] [address] 03/10/2025 12:30 PM EDT Appointment [place] [address] Tacho Echavarria MD [address] [place] [address] 03/10/2025 1:00 PM EDT Appointment [facility] [place] [address] Tacho Echavarria MD [address] [place] [address] 04/29/2025 9:15 AM EDT Appointment [place] [address] Batool Celis MD [address] [place] [address] [place] [address] 05/19/2025 2:15 PM EST Office Visit [facility] [address] [place] [address] 401 [facility] 1D [place] [address] Sin Tran MD [address] [facility] [place] [address] 08/12/2025 10:40 AM EST Appointment [facility] Women's Wellness [place] One [facility] [place] [address] Matt Ulrich MD [address] [place] [address] 254 [place] [address] documented as of this encounter Goals Goal Patient Goal Type Associated Problems Recent Progress Patient-Stated? Author Blood Pressure < 140/90 Blood Pressure 121/77(02/04 2:04 PM EDT) No Chetna Cedeno MD Breast [facility] Breast Health On track(2024 11:27 AM [...] documented as of this encounter Care Teams Boat Motor Mechanic Relationship Specialty [place] [address] [place] [address] PCP - General 06/21/10 Arlyn Schmidt MD [address] [place], [place] 5299511 Consulting Physician Internal Medicine-Endocrinology, Diabetes & Metabolism 11/28/20 Tacho Echavarria MD 1 [place], [place] 6609017 Internal Medicine-Medical Oncology 11/12/23 Matt Ulrich MD 1 [place], [place] 0760517 Surgery-Surgical Oncology 12/04/23 Eze Brock Pastoral Care 12/13/23 Annette [place], HAND FRAME SURGICAL ELASTIC KNITTER Electronic Device Repairer 05/13/24 Batool Celis MD 1 [facility] CANCER [place], [place] 8621717 Radiation Oncologist Radiology-Radiation Oncology 06/08/24 documented as of this encounter
--- OUTSIDE RECORDS SUMMARY | 2025-03-02 07:23 | XMS_ITS | Encounter Summary ---
Author [place] [address] Care Team Providers Care Gameplay Programmer Name Role Phone Chetna Cedeno MD Primary Care Provider [phone] Arlyn Schmidt MD Unavailable [phone] Tacho Echavarria MD Unavailable [phone] Matt Ulrich MD Unavailable [phone] Eze Brock Unavailable Annette [place] Unavailable [phone] Batool Celis MD Unavailable [phone] Reason for Visit * Reason Onset Date Comments Patient Question 01/28/2025 question about test result Encounter Details Date Type Department Care Team (Late st Contact Info) Description 01/28/2025 Telephone [facility] Medical Oncology [place], [place] [phone] Tacho Echavarria MD [address] [place] [address] [id number] Patient Question (question about test result ) [...] a snf (including now)? No 11/07/2023 [facility] IP Transportation Answer D ate [...] results are in and forwarded to MD. Differential message sent to patient, no need to move appt up sooner at this time. * Telephone Encounter - Sendy [place] NA - 01/28/2025 10:43 AM EDT Reason for call: [facility], said it was something to do withDNA and what medications to take. Said she was unable to read results and was calling to see if anything needed to be done or if she was ok to wait until her appt. Preferred call back number: [phone] documented in this encounter Plan of Treatment Upcoming Encounters Date Type Department Care Team (Late st Contact Info) Description 03/09/2025 12:45 PM EDT Procedure visit [facility] [address] [facility] [address] [place] [address] Samm Ledesma APRN [address] [facility] [address] [place] [address] 03/10/2025 12:30 PM EDT Appointment [place] [address] Tacho Echavarria MD 1 [place], [place] 5093717 03/10/2025 1:00 PM EDT Appointment [facility] Medical Oncology [place], [place] 7877517 Tacho Echavarria MD [address] [place] [address] [id number] 04/29/2025 9:15 AM EDT Appointment [facility] RAD ONC [place], [place] [phone] Batool Celis MD 1 [facility] [place] [address] 05/19/2025 2:15 PM EST Office Visit [address] [address] Sin Tran MD [address] [place] [address] 08/12/2025 10:40 AM EST Appointment [facility] Women's Wellness [facility] [place] [address] Matt Ulrich MD [address] [place] [address] 254 [place] [address] documented as of this encounter Goals Goal [...] documented as of this encounter Care Teams Gameplay Programmer Relationship Specialty [place] [address] [place] [address] PCP - General 06/21/10 Arlyn Schmidt MD [facility] [place] [address] Consulting Physician Internal Medicine-Endocrinology, Diabetes & Metabolism 11/28/20 Tacho Echavarria MD 1 [place] [address] Internal Medicine-Medical Oncology 11/12/23 Matt Ulrich MD 1 [place] [address] Surgery-Surgical Oncology 12/04/23 Eze Brock Pastoral Care 12/13/23 Annette [place] MSW Client Service Executive 05/13/24 Batool Celis MD 1 [facility] [place] [address] Radiation Oncologist Radiology-Radiation Oncology 06/08/24 documented as of this encounter
--- OUTSIDE RECORDS SUMMARY | 2025-03-02 07:24 | XMS_ITS | Encounter Summary ---
Author Organization [place] [address] Care Team Providers Care Herb Doctor Name Role Phone Chetna Cedeno MD Primary Care Provider [phone] Arlyn Schmidt MD Unavailable [phone] Tacho Echavarria MD Unavailable [phone] Matt Ulrich MD Unavailable [phone] Eze Brock Unavailable Annette [place] Unavailable [phone] Batool Celis MD Unavailable [phone] Reason for Visit * Reason Comments Medication Refill Encounter Details Date Type Department Care Team (Late st Contact Info) Description 01/15/2025 Refill [facility] [address] [place] [address] Samm Ledesma, MOLDER SWEEP [address] [address] [address] [place] [address] Medication Refill Social History Tobacco Use Types [...] in a residential (including now)? No 11/07/2023 [facility] IP Transportation Answer D ate [...] visit [facility] [address] [facility] [address] [place] [address] Samm Ledesma APRN [address] [address] [place] [address] 03/10/2025 12:30 PM EDT Appointment [facility] [place], [place] [phone] Tacho Echavarria MD [address] [place] [address] 03/10/2025 1:00 PM EDT Appointment [place] [address] Tacho Echavarria MD 1 [place] [address] 04/29/2025 9:15 AM EDT Appointment [place] [address] Batool Celis MD [address] [facility] [place] [address] 05/19/2025 2:15 PM EST Office Visit [address] [facility] 1D [place] [address] Sin Tran MD [address] [place] [address] 08/12/2025 10:40 AM EST Appointment [facility] [place] [address] Matt Ulrich MD [address] [place] [address] 254 [place] [address] documented as of this encounter Goals Goal [...] documented as of this encounter Care Teams Herb Doctor Relationship Specialty [place] [address] [place] [address] PCP - General 06/21/10 Arlyn Schmidt MD [address] [place], [place] 23455[address] Consulting Physician Internal Medicine-Endocrinology, Diabetes & Metabolism 11/28/20 Tacho Echavarria MD 1 [place], [place] 7651917 Internal Medicine-Medical Oncology 11/12/23 Matt Ulrich MD 1 [place], [place] 8338317 Surgery-Surgical Oncology 12/04/23 Eze Brock Pastoral Care 12/13/23 Annette [place] MSW Substitute Nurse 05/13/24 Batool Celis MD 1 [facility] [place] [address] Radiation Oncologist Radiology-Radiation Oncology 06/08/24 documented as of this encounter
--- OUTSIDE RECORDS SUMMARY | 2025-03-02 07:24 | XMS_ITS | Clinical Summary ---
Author Organization [facility] Address [address] [place] [address] Phone Care Team Providers Care Bioinformatician Name Role Phone Chetna Cedeno MD Primary Care Provider [phone] Allergies Active Allergy Reactions Criticality Noted Date [...] EDT - 01/02/2025 7:27 PM EDT Emergency [facility] Emergency Department [address] [place] [address] Dallin Espinoza MD Heat exhaustion, [...] (ABNORMAL) BAMP (Na,K,Cl,CO2,Glu,BUN,Creat,Ca) (01/02/2025 5:13 PM EDT) [facility] BLD UREA NITROGEN 16 8 - 26 mg/dL [facility] SODIUM 140 135 - 145 mmol/L [facility] POTASSIUM 3.2(L) 3.6 - 5.1 mmol/L [facility] CHLORIDE 107 98 - 111 mmol/L [facility] CO2 20(L) 21 - 31 mmol/L [facility] GLUCOSE, RANDOM 89 70 - 99 mg/dL [facility] CREATININE 1.06 0.60 - 1.20 mg/dL [facility] ANION GAP 13 4 - 16 mmol/L [facility] CALCIUM 9.0 8.5 - 10.4 mg/dL [facility] ESTIMATED GFR 61 >59 mL/min/1.7 3 m2 [facility] Comment: Estimated GFR was calculated using the CKD-EPI cr (2020) equation refit without race. The equation is recommended by the National Kidney Foundation - [place] Society of Nephrology Task Force. Tested at [place] [id number] Whole Blood 01/02/2025 5:13 PM EDT 01/02/2025 5:25 PM EDT Dallin Espinoza MD LAB BLOOD ORDERABLES Final Result [facility] [address] [place] [address] [place] [address] * (ABNORMAL) CBC w/ Diff (01/02/2025 5:13 PM EDT) [facility] WBC 7.1 3.6 - 10.5 THOU/[facility] CHEMISTRY [place] RBC 3.75(L) 3.80 - 5.20 MIL/mcL [facility] HEMOGLOBIN 11.2(L) 12.0 - 15.2 g/dL [facility] HEMATOCRIT 33.6(L) 36 - 46 % [facility] MCV 89.6 82 - 97 fL [facility] MCH 30.0 27 - 33 pg [facility] MCHC 33.5 32 - 36 g/dL [facility] RDW 16.0 12.3 - 17.0 % [facility] PLATELET 206 140 - 375 THOU/mcL [facility] MPV 6.9(L) 7.0 - 11.5 fL [facility] ABS. NEUTROPHIL 3.60 1.80 - 7.70 THOU/mcL [facility] ABS LYMPHS 3.00 1.00 - 4.00 THOU/mcL [facility] ABS MONOS 0.30 0.20 - 0.90 THOU/mcL [facility] ABS EOS 0.10 0.03 - 0.45 THOU/mcL [facility] ABS BASOS 0.10 0.00 - 0.20 THOU/mcL [facility] SEGS 51 % [facility] LYMPHOCYTES 43 % CHEMISTR Y NORTH MONOCYTES 4 % [facility] EOSINOPHIL 1 % [facility] BASOPHILS 1 % [facility] Comment:Tested at [facility] [address] [facility] [address] Whole Blood 01/02/2025 5:13 PM EDT 01/02/2025 5:25 PM EDT us Dallin Espinoza MD LAB BLOOD ORDERABLES Final Result [facility] [address] [place] [address] [facility] [address] [place] [address] * ECG 12 lead (01/02/2025 4:37 PM [...] QTcF 417 ms TH TRACEMASTER QRS Horizontal [place] -19 deg TH TRACEMASTER QRS AXIS 16 deg TH TRACEMASTER I-40 Horizontal [place] 46 deg TH TRACEMASTER I-40 FRONT AXIS -17 deg TH TRACEMASTER T-40 Horizontal [place] -50 deg TH TRACEMASTER T-40 [place] 51 deg TH TRACEMASTER T Horizontal [place] 52 deg TH TRACEMASTER T WAVE AXIS 16 deg TH TRACEMASTER S-T Horizontal [place] 60 deg TH TRACEMASTER S-T [place] 24 deg TH TRACEMASTER ECG IMPRESSION - BORDERLINE ECG - TH TRACEMASTER ECG IMPRESSION SR-Sinus rhythm-normal P axis, V-rate 50-99 TH TRACEMASTER ECG IMPRESSION LVHVP-Probable left ventricular hypertrophy-mul tiple LVH criteria TH TRACEMASTER ECGGUID [id number] TH TRACEMASTER 01/02/2025 4:37 PM EDT us Dallin Espionza MD ECG ORDERABLES Final Resu lt TH TRACEMASTER from Last 3 Months Insurance [facility] MEDICAID Care Teams Bioinformatician Relationship Specialty Start Date End Date Chetna Cedeno MD [facility] [address] [place] [address] PCP - General Family Medicine 01/02/25
--- OUTSIDE RECORDS SUMMARY | 2025-03-02 07:24 | XMS_ITS | Clinical Summary ---
Author Organization [facility] OD Address [facility] [place] [address] Phone Care Team Providers Care Medical Writer Name Role Phone Chetna Cedeno MD Primary Care Provider [phone] Arlyn Schmidt MD Unavailable [phone] Tacho Echavarria MD Unavailable [phone] Matt Ulrich MD Unavailable [phone] Eze Brock Unavailable Annette Walker DIRECTOR MEDICAID Unavailable [phone] Batool Celis MD Unavailable [phone] Allergies Active Allergy Reactions Criticality Noted Date [...] Mis Spacer 1 Each by [facility]Non-Drug; Combo Route) route as needed. 1 Device [...] Active fluticasone propionate (FLONASE) 50 mcg/actuation Nasl [place], Suspension 1 [place] by Nasal route daily. 1 Each 07/03/20 [...] migh t be different from the original. [facility] - Sin Tran MD Controlled Substance Protocol [...] or Functional capacity documented (EVERY VISIT)01/03/2022 Pharmacy: [address] [address] [facility] [phone] AIS POA: 02/10/2025 josh as expected #[id number] Josh 08-05-2018 adm Josh 08-14-18 adm UDS 08-08-18 adm Care gap audit completed by Medina White RN on 01/01/2022. 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 I doubt the patient has underlying Almond's disease. We will proceed with the work-up [...] Specialty Pharmacy [facility] [address], [place] [id number] Charlotte Martino [facility] Migraine Medication Management (Qulipta/Nurtec) 02/25/2025 Specialty Pharmacy [facility] [address], [place] [id number] Annette Renee [facility] Oncology Management (Abemaciclib) 02/15/2025 Telephone [facility] [place] [phone] Tacho Echavarria MD 02/12/2025 Telephone [facility] [place] [phone] Eze Rowland MD Follow-up (Updated form, loan deferment form ) 02/10/2025 10:30 AM EDT Office Visit [facility] [address] [address] Sin Tran MD Chronic pain syndrome (Primary Dx); Post laminectomy syndrome 02/10/2025 Patient Outreach [place] [address] Tacho Echavarria MD Oncology Nurse Navigation 02/10/2025 Orders Only [facility] [place] [phone] Shilpa Cline, RAUL 02/08/2025 Refill [facility] [place] [phone] Tacho Echavarria MD Medication Refill 02/05/2025 Telephone [facility] [place], [place] [phone] Tacho Echavarria MD Symptom Call (lightheaded / headache ) 02/05/2025 Telephone [place] [address] Narda Vickers, Clerical Staff Integrative Oncology Referral 02/05/2025 Telephone [facility] [address] Service [place] [address] Chetna Cedeno MD Other (BW) 02/04/2025 2:03 PM EDT - 02/04/2025 11:59 PM EDT Hospital Encounter [facility] [place] [address] Tacho Echavarria MD Invasive ductal carcinoma of breast, female, right (HCC) (Primary Dx); Chemotherapy follow-up examination; Encounter for monitoring aromatase inhibitor therapy; Vitamin D deficiency; Port-A-Cath in place; Reactive depression Discharge Disposition: Home or Self Care 02/04/2025 1:48 PM EDT - 02/04/2025 2:02 PM EDT Hospital Encounter [facility] [address] Tacho Echavarria MD Invasive ductal carcinoma of breast, female, right (HCC) (Primary Dx) Discharge Disposition: Home or Self Care 02/04/2025 11:00 AM EDT - 02/04/2025 1:47 PM EDT Hospital Encounter [facility] [place] [facility] Tacho Echavarria MD Mosko, Mallory, PA-C Invasive ductal carcinoma of breast, female, right (HCC) (Primary Dx); Encounter for monitoring aromatase inhibitor therapy; Encounter for screening mammogram for breast cancer Discharge Disposition: Home or Self Care 02/04/2025 Social Work [facility] Cancer Care [facility] [place] [address] Annette Walker MSW 02/04/[address] [facility] [place] [address] Aliya Harden, Clerical Staff Appointment Needed 02/03/[address] [address] Sin Tran MD Other (Pain pump meds) 02/03/2025 Specialty Pharmacy [facility] [address] [place] [address] Anisa Lozoya, Tim Pharmacy Oncology Management (Abemaciclib) 02/02/2025 11:20 AM EDT Telemedicine [facility] [address] [place] [address] Samm Ledesma APRN Chronic migraine without aura, intractable, with status migrainosus (Primary Dx); Paresthesia; Invasive ductal carcinoma of breast, female, right (HCC); Pituitary lesion; Radicular syndrome of left leg Discharge Disposition: Home or Self Care 02/02/2025 Specialty Pharmacy [facility] [address] [place] [address] Kevin Chacon, PharmD Pharmacy Migraine Medication Management (Nurtec) 02/01/2025 Social Work [facility] Cancer Care [facility] [place] [address] Sonny Fleming, [facility] 02/01/2025 Telephone [facility] [place] [address] Tacho Echavarria MD Other (Currently inpatient at [facility] ) 01/29/2025 Telephone [facility] [place] [address] Tacho Echavarria MD Symptom Call (Diarrhea, body aches, vomiting) 01/29/2025 Social Work [facility] Cancer Care [facility] [place] [address] Sonny Fleming, [facility] 01/29/2025 Patient Outreach [place] [address] Shilpa Cline, psychological science professor Nurse Navigation 01/28/2025 Orders Only [facility] [place] [address] Tacho Echavarria MD Invasive ductal carcinoma of breast, female, right (HCC) (Primary Dx) 01/28/2025 Telephone [facility] [place] [address] Tacho Echavarria MD Patient Question (question about test result ) 01/28/2025 Specialty Pharmacy [facility] [address] [place] [address] Sheridan Arellano, [facility] Migraine Medication Management (Qulipta) 01/27/2025 Results Follow-Up [facility] [address] [place] [address] Benito Snell, PharmD PHARMACOGENOMIC PANEL 01/21/2025 Orders Only [facility] [address] [place] [address] Osvaldo Johnson, Clerical Staff 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) (Primary Dx) 01/18/2025 Telephone [facility] [place] [phone] Tacho Echavarria MD 01/15/2025 1:30 PM EDT - 01/15/2025 11:59 PM EDT Hospital Encounter [facility] [place] [phone] Tacho Echavarria MD Argent, Lillian L, APRN Hot flashes related to aromatase inhibitor therapy (Primary Dx); Vitamin D deficiency Discharge Disposition: Home or Self Care 01/15/2025 1:15 PM EDT - 01/15/2025 1:29 PM EDT Hospital Encounter [place] [address] Tacho Echavarria MD Invasive ductal carcinoma of breast, female, right (HCC) (Primary Dx); Cold sweat; Lightheaded; Shakiness Discharge Disposition: Home or Self Care 01/15/2025 11:55 AM EDT - 01/15/2025 1:14 PM EDT Hospital Encounter [facility] Physical Therapy [address] [place] [address] Kylah Lawler, ALECIA Discharge Disposition: Home or Self Care 01/15/2025 Refill [facility] [address] [place] [phone] Chetna Cedeno MD Medication Refill 01/15/2025 Refill [facility] [address] [place] [address] Samm Ledesma APRN Medication Refill 01/15/2025 Refill [facility] [place] [address] Tacho Echavarria MD Medication Refill 01/15/2025 Plan of Care Documentation [facility] Physical Therapy [address] [place] [phone] 01/15/2025 Plan of Care Documentation [facility] Physical Therapy [address] [place] [address] 01/15/2025 Telephone [facility] [place] [phone] Tacho Echavarria MD Symptom Call (shakiness, light headed, cold chills, and breaking out in sweats ) 01/15/2025 Specialty Pharmacy [facility] [address] [place] [phone] Annamarie Mark [facility] Migraine Medication Management (Ubrelvy) 01/14/2025 Refill [facility] [place] [address] Tacho Echavarria MD Medication Refill 01/13/2025 2:56 PM EDT - 01/13/2025 11:59 PM EDT Hospital Encounter [facility] Physical Therapy [address] [place] [address] Shaunna Workman, ALECIA Discharge Disposition: Home or Self Care 01/13/2025 Plan of Care Documentation [facility] Physical Therapy [address] [place] [phone] 01/11/2025 Orders Only [facility] [place] [address] Tacho Echavarria MD 01/07/2025 Specialty Pharmacy [facility] [address] [place] [address] OAnisa Bergman CPhT Pharmacy Oncology Management (Abemaciclib) 01/06/2025 1:14 PM EDT - 01/06/2025 11:59 PM EDT Hospital Encounter [facility] [place] [address] Tacho Echavarria MD Invasive ductal [...] EDT Hospital Encounter [place] [address] Tacho Echavarria MD Invasive ductal carcinoma of breast, female, right (HCC) (Primary Dx) Discharge Disposition: Home or Self Care 01/01/2025 Patient Outreach [facility] [address] [place] [address] Samm Ledesma APRN Botox Injection (~03/02/2025 ) 12/31/2024 Specialty Pharmacy [facility] [address] [place] [address] Annamarie Mark [facility] Migraine Medication Management (Qulipta) 12/30/2024 Social Work [facility] [place] [address] Sonny Fleming, DIRECTOR MEDICAID 12/29/2024 Social Work [facility] [place] [address] Annette Walker, DIRECTOR MEDICAID 12/29/2024 Orders Only [facility] [address] [place] [address] VolpenheinBlake, RPH Restless leg syndrome; Essential hypertension, benign 12/29/[address] [facility] [address] [address] Munir Hilton MD Medication Refill 12/29/[address] [place] [facility] [address] Service [place] [address] Chetna Cedeno MD Medication Refill 12/29/2024 Telephone [facility] [place] [address] Tacho Echavarria MD 12/28/2024 Orders Only [facility] [place] [address] Tacho Echavarria MD 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) (Primary Dx) 12/25/2024 Specialty Pharmacy [facility] [address] [place] [address] Hilary Rivas [facility] Pharmacy Oncology Management; Pharmacy Reassessment (abemaciclib (Verzenio)) 12/25/2024 Telephone [facility] Women's Wellness [facility] [place] [phone] Jasmin Porter RN 12/23/2024 Specialty Pharmacy [facility] [address] [place] [address] Anisa Lozoya gyroscope technician Pharmacy Migraine Medication Management (Qulipta pa renewal) 12/23/2024 Telephone [facility] [place] [address] Tacho Echavarria MD 12/23/2024 Telephone [facility] [address] [place] [address] Tacho Echavarria MD Follow-up 12/14/2024 11:09 AM EDT - 12/14/2024 11:59 PM EDT Hospital Encounter [facility] Physical Therapy [address] [place] [address] Kylah Lawler, PT Discharge Disposition: Home or Self Care 12/11/2024 Telephone [facility] Physical Therapy [address] [place] [address] Romana Bowman PTA Cancelled Appointment (Car in shop will not get done till 5 ) 12/10/2024 2:46 PM EDT - 12/10/2024 11:59 PM EDT Hospital Encounter [facility] [place] [address] Tacho Echavarria MD 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) (Primary Dx); Chemotherapy-induced nausea; Anxiety about treatment; Acquired lymphedema; Encounter for monitoring aromatase inhibitor therapy Discharge Disposition: Home or Self Care 12/10/2024 2:30 PM EDT - 12/10/2024 2:45 PM EDT Hospital Encounter [place] [address] Tacho Echavarria MD Invasive ductal carcinoma of breast, female, right (HCC) (Primary Dx); 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) Discharge Disposition: Home or Self Care 12/10/2024 Specialty Pharmacy [facility] [address] [place] [phone] Batool Smith, [facility] Pharmacy Oncology Management (Verzenio 100mg) 12/10/2024 Social Work [facility] Cancer Care [facility] [place] [address] Annette Walker MSW 12/09/2024 Specialty Pharmacy [facility] [address] [place] [phone] Annamarie Mark, [facility] Migraine Medication Management (Qulipta) 12/08/2024 2:35 PM EDT Procedure visit [facility] [address] [place] [address] Samm Ledesma APRN Chronic migraine without aura, intractable, with status migrainosus (Primary Dx) Discharge Disposition: Home or Self Care 12/08/2024 7:59 AM EDT - 12/08/2024 11:59 PM EDT Hospital Encounter [facility] Physical Therapy [address] [place] [address] Shaunna Workman, PT Discharge Disposition: Home or Self Care 12/08/2024 Specialty Pharmacy [facility] [address] [place] [address] Ras Thomas [facility] Pharmacy Migraine Medication Management (Ubrelvy) 12/07/2024 Results Follow-Up [facility] [address] [place] [address] King Oliva MD PATHOLOGY TISSUE REQUEST 12/04/2024 Social Work [facility] [place] [address] Aaron Annette, [facility] 12/04/2024 Travel 12/03/2024 9:00 AM EDT - 12/03/2024 11:59 PM EDT Hospital Encounter [facility] Physical Therapy Yaak [address] [place] [address] Shaunna Workman, PT Discharge Disposition: Home or Self Care 12/03/2024 8:00 AM EDT - 12/03/2024 8:59 AM EDT Hospital Encounter [facility] Physical Therapy Yaak [address] [place] [address] Romana Bowman, [employer] HRMS DEVELOPER Discharge Disposition: Home or Self Care 12/03/2024 [facility] Work [facility] [place] [address] [place], Radhasharongage, [facility] 12/02/2024 9:36 AM EDT - 12/02/2024 11:59 PM EDT Hospital Encounter [facility] Physical Therapy [address] [place] [address] Shaunna Workman, PT Discharge Disposition: Home or Self Care 12/02/2024 Orders Only [facility] [place] [phone] Tacho Echavarria MD 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) (Primary Dx) 12/01/2024 10:51 AM EDT Anesthesia Event [facility] [address] [place] [address] Aliya Friedman MD Record, Batool Marcus, ELECTRIC BLASTING CAP ASSEMBLER 12/01/2024 9:22 AM EDT - 12/01/2024 11:59 PM EDT Hospital Encounter [facility] [address] [place] [address] King Oliva MD Judge, Lisa M, MD O N eal, Christine M, CRNA Nausea and vomiting, unspecified vomiting type; Gastroesophageal reflux disease without esophagitis Discharge Disposition: Home or Self Care 12/01/2024 Refill [facility] [place] [address] Tacho Echavarria MD Medication Refill 12/01/2024 Specialty Pharmacy [facility] [address] [place] [phone] Annette Renee, [facility] Oncology Management (Abemaciclib) 11/30/2024 Nurse Triage [facility] [address] [place] [address] Sandy Gonzalez, RAUL from Last 3 Months Immunizations Immunization Administration Dates Next Due Influenza High Dose 06/25/2024, 4(Deferred: Other - patient is getting vaccine at [facility]) Influenza Vaccine Quadrivalent PF 03/27/2023,01/2015 Influenza [...] ; Surgeon: Marcus Perez MD; Location: [facility] MAIN OR; Service: General IR 2 [...] IMPLANT; Surgeon: Munir Hilton MD; Location: [facility] MAIN OR; Service: Pain Management Medical devices from this surgery are in the Medical Devices section. SPINE SURGERY 01/04/2021 N/A PAIN PUMP PERMANENT IMPLANT; Surgeon: Munir Hilton MD; Location: [facility] MAIN OR; Service: Pain Management Medical devices from this surgery are in the Medical Devices section. IR FLUOROSCOPY GUIDED NEEDLE PLACEMENT 01/17/2021 IR FLUOROSCOPY GUIDED NEEDLE PLACEMENT 01/17/2021 [facility] SP[facility] CTR IMAGING IR GUIDED INJECT TRANSFORAM EPIDUR LUMB OR SACRAL SINGLE LVL 08/03/2022 IR GUIDED INJECT TRANSFORAMINAL EPIDUR LUMB OR SACRAL SINGLE LVL 08/03/2022 Sin Tran MD [facility] CTR IMAGING BREAST BIOPSY 10/25/2023 Right 5:00 and 6:00 IR PORT PLACEMENT EQUAL OR > 5 YEARS 11/29/2023 IR PORT PLACEMENT EQUAL OR > 5 YEARS 11/29/2023 Joselito Goodwin MD [facility] IR MASTECTOMY 07/06/2024 Right Right modified radical mastectomy; Surgeon: Matt Ulrich MD; Location: [facility] MA[facility] OR; Service: General Medical History Medical [...] Since he was 14 . Diabetes Father Jroge Cole Diabetes for 30 years now. Unknown Father Jorge oCle Unknown Mother Bipolar Disorder Son Depression Son [...] from your doctor or pharmacy? Never 11/07/2023 [employer] Answer Date Recorded In the past 12 months has [employer], oil, or water [employer] threatened to shut off services in your [...] 5 07/07/2024 [facility] - Occupational Stress Questionnaire Answer Date [...] a senior living (including now)? No 11/07/2023 [facility] IP Transportation Answer D ate Recorded [...] Of [facility] [address] [place] [address] Samm Ledesma, ELECTRIC BLASTING CAP ASSEMBLER [address] [place] [address] 03/10/2025 12:30 PM EDT Appointment [facility] [place] [phone] Tacho Echavarria MD [address] [place] [phone] 03/10/2025 1:00 PM EDT Appointment [facility] [place] [address] Tacho Echavarria MD [address] [place] [address] 04/29/2025 9:15 AM EDT Appointment [place] [address] Batool Celis MD [address] [place] [address] [place] [address] 05/19/2025 2:15 PM EST Office Visit [facility] [place] [address] [facility] [address] [place] [address] Sin Tran MD [address] [facility] [place] [address] 08/12/2025 10:40 AM EST Appointment [facility] Women's Wellness [place] [facility] [place] [place] [address] Matt Ulrich MD [address] [place] [address] [address] [place] [address] Health Maintenance Due Date Last [...] EDT) No Chetna Cedeno MD Breast [facility] Breast Health On track(2024 11:27 AM EDT) No Jasmin Porter, RAUL Note: Patient acknowledges understanding of new diagnosis, plan of care, available resources and how to contact Nurse Navigator with any future questions or concerns. Breast [facility] Breast [facility] Not on track(2024 11:27 AM EDT) No Jasmin Porter, RAUL Note: Patient will be compliant with monthly SBE and is aware of who to contact for any unusual or concerning findings. Breast [facility] Breast Health On track(2024 11:27 AM EDT) No Demi Garibay, RAUL Note: Patient will be compliant with taking Aromatase Inhibitor daily and understands who to contact to discuss any side effects or complications. Maintain a healthy diet, exercise regularly and maintain an ideal body weight General No Sanam Julio MA Medical Devices Implanted Type Area Glass Beveler Device Identifier Shelf Expiration Date Model / Serial / Lot Kit Acc .133in Injex Didi Baso4 Biwing Flxb Rem Tl Preld - [id number] Implanted:Qty: 1 on 02/24/2020 by Munir Hilton MD at [facility] N/A: Back [employer]:NEURO 10/28/2023 [id number] / / [id number] Neurostimulator Rechar Adapt-Stim Sure Scan Intellis - [id number] Implanted:Qty: 1 on 02/24/2020 by Munir Hilton MD at [facility] N/A: Back [employer]:NEURO 12/19/2020 [id number] / [id number] / Kit Lead Percutaneous Mri Surescan Vectris 1x8 60cm - [id number] Implanted:Qty: 1 on 02/24/2020 by Munir Hilton MD at [facility] N/A: Back [employer]:NEURO 09/09/2023 [id number] / / [id number] Kit Lead Percutaneous Mri Surescan Vectris 1x8 60cm - [id number] Implanted:Qty: 1 on 02/24/2020 by Munir Hilton MD at [facility] N/A: Back [employer]:NEURO 10/08/2023 [id number] / / [id number] Device Suturing Mechanical Fixate Tissue Band - [id number] Implanted:Qty: 1 on 02/24/2020 by Munir Hilton MD at [facility] N/A: Back [employer]:NEUROMODULA TION 02/03/2024- / / [id number] Device Suturing Mechanical Fixate Tissue Band - [id number] Implanted:Qty: 1 on 02/24/2020 by Munir Hilton MD at [facility] N/A: Back [employer]:NEUROMODULA TION 02/03/2024 FB-- / / [id number] Envelope Absorbable Tyrx Polyarylate Medium 2.7in X 2.5in - [id number] Implanted:Qty: 1 on 02/24/2020 by Munir Hilton MD at [facility] N/A: Back [employer]:NEURO 12/03/2020 [id number] / / [id number] Device Sut Fixate Anchr Ld Tiss Bnd [id number] - [id number] Implanted:Qty: 1 on 01/04/2021 by Munir Hilton MD at [facility] N/A: Back [employer]:NEUROMODULA TION [id number] 10/25/2024 FB- / / [id number] Cath It 1-Pc 114cm 86cm Didi 4-Lyr Sut-Ls Residential Therapist Conn Lng Spin - [id number] Implanted:Qty: 1 on 01/04/2021 by Munir Hilton MD at [facility] N/A: Back [employer]:NEURO 12/10/2022 [id number] / / [id number] Pump It 2.5mm [id number] Flxb Synchromed Ii Rsvr Bk - [id number] Implanted:Qty: 1 on 01/04/2021 by Munir Hilton MD at [facility] N/A: Back [employer]:NEURO 01/02/2022 [id number] / [id number] H / Port Infs 8fr [place] 1.6x2.6mm Xcela Pwr Inj Lpro Ti Pu-11/29/2023 Implanted:Qty: 1 on 11/29/2023 by Joselito Goodwin MD [facility] [id number] / / [id number] Procedures Procedure Name Priority Date/Time Associated Diagnosis [...] the time period is included. Pathologist [facility] Vitamin B12 271 232 - 1,245 pg/mL 02/04/2025 4:31 PM EDT [facility] [employer] Folate 6.16 >=4.80 ng/mL 02/04/2025 4:31 PM EDT [facility] [employer] Blood VENOUS BLOOD / Unknown Venipuncture / Unknown 02/04/2025 2:03 PM EDT 02/04/2025 2:03 PM EDT Narrative [facility]REFERR[facility] [employer] - 02/04/2025 4:31 PM EDT Ingestion of haroon doses of biotin (>5 mg/day) taken within 8 hours of drawing blood sample can interfere with this immunoassay test. Tacho Echavarria MD CHEMISTRY ORDERABLES Final Result [facility] [employer] [address] , [address] [place] [id number] * (ABNORMAL) CBC WITH DIFF (02/04/2025 2:03 PM EDT) Only the most recent of4 resultswithin the time period is included. Pathologist [facility] WBC 8.1 3.7 - 10.3 x10(3)/mc L 02/04/2025 2:07 PM EDT [facility] RBC 2.95(L) 3.90 - 5.20 x10(6)/mc L 02/04/2025 2:07 PM EDT [facility] Hgb 9.4(L) 11.2 - 15.7 g/dL 02/04/2025 2:07 PM EDT [facility] Hct 28.1(L) 34.0 - 45.0 % 02/04/2025 2:07 PM EDT [facility] MCV 95.3 80.0 - 100.0 fL 02/04/2025 2:07 PM EDT [facility] MCH 31.9 26.0 - 34.0 pg 02/04/2025 2:07 PM EDT [facility] MCHC 33.5 30.7 - 35.5 g/dL 02/04/2025 2:07 PM EDT [facility] RDW 15.0(H) <=14.9 % 02/04/2025 2:07 PM EDT [facility] Platelet 163 155 - 369 x10(3)/mc L 02/04/2025 2:07 PM EDT [facility] MPV 8.8 8.8 - 12.5 fL 02/04/2025 2:07 PM EDT [facility] Neut # Prelim 5.6 1.6 - 6.1 [...] 2:07 PM EDT [facility] Ashe Percent 5.7 % 02/04/2025 2:07 PM EDT [facility] Eos Percent 2.1 % 02/04/2025 2:07 PM EDT [facility] Baso Percent 0.2 % 02/04/2025 2:07 PM EDT [facility] Neut # 5.6 1.6 - 6.1 x10(3)/mc L 02/04/2025 2:07 PM T [facility] Comment:Neutrophils equals s egs plus bands IMMGRAN# 0.0 0.0 - 0.1 x10(3)/mc L 02/04/2025 2:07 PM EDT [facility] Comment:Automated count of m etamyelocytes, myelocytes and promyelocytes. An absolute IG <0.1 is reported as 0.0. Lymph # 1.9 1.2 - 3.9 x10(3)/mc L 02/04/2025 2:07 PM EDT [facility] Ashe # 0.5 0.3 - 0.9 x10(3)/mc L [...] ORDERABLES Final Result Performing Organization Address City/[facility] [place] [address] * IRON+TIBC (02/04/2025 2:02 PM EDT) Only the most recent of2 resultswithin the time period is included. Iron 82 30 - 160 mcg/dL 02/04/2025 2:59 PM EDT [facility] Transferrin 279 200 - 360 mg/dL 02/04/2025 2:59 PM EDT [facility] Transferrin Saturation 21 20 - 50 % 02/04/2025 2:59 PM EDT [facility] TIBC 391 250 - 400 mcg/dL 02/04/2025 2:59 PM EDT [facility] Blood VENOUS BLOOD / Unknown Venipuncture / Unknown 02/04/2025 2:02 PM EDT 02/04/2025 2:02 PM EDT us Tacho Echavarria MD CHEMISTRY ORDERABLES Final Result Performing Organization Address City/[facility]/ZIP Co de Phone Number [facility] 1 [facility] [place] [address] [facility] [address] [place] [place] [address] * (ABNORMAL) COMPREHENSIVE METABOLIC PANEL (02/04/2025 2:02 PM EDT) Only the most recent of4 resultswithin the time period is included. Sodium 142 136 - 145 mmol/L 02/04/2025 2:28 PM EDT [facility] Potassium 3.3(L) 3.5 - 5.0 mmol/L 02/04/2025 2:28 PM EDT [facility] Chloride 108(H) 98 - 107 mmol/L 02/04/2025 2:28 PM EDT [facility] Total CO2 19(L) 22 - 29 mmol/L 02/04/2025 2:28 PM EDT [facility] Anion Gap 15 7 - 16 mmol/L 02/04/2025 2:28 PM EDT [facility] Calcium 8.6 8.6 - 10.4 mg/dL 02/04/2025 2:28 PM EDT [facility] Glucose Lvl 134(H) 70 - 99 mg/dL 02/04/2025 2:28 PM EDT [facility] BUN 12 6 - 20 mg/dL 02/04/2025 2:28 PM EDT [facility] Creatinine 0.78 0.51 - 1.30 mg/dL 02/04/2025 2:28 PM EDT [facility] Albumin 3.8 3.5 - 5.2 gm/dL 02/04/2025 2:28 PM EDT [facility] Total Protein 6.0(L) 6.4 - 8.3 gm/dL 02/04/2025 2:28 PM EDT [facility] Bili Total 0.3 0.2 - 1.3 mg/dL 02/04/2025 2:28 PM EDT [facility] ALT 8 <=41 U/L 02/04/2025 2:28 PM EDT [facility] AST 12 <=40 U/L 02/04/2025 2:28 PM EDT [facility] Alk Phos 95 36 - 123 U/L 02/04/2025 2:28 PM EDT [facility] eGFR (CKD-EPIcr 2020) 88 >=60 mL/min/1.7 3 m2 02/04/2025 2:28 PM EDT [facility] Comment:Estimated GFR was ca lculated using the CKD-EPIcr (2020) equation refit without race. The equation is recommended by the National Kidney Foundation - [place] Society of Nephrology Task Force. Blood VENOUS BLOOD / Unknown Venipuncture / Unknown 02/04/2025 2:02 PM EDT 02/04/2025 2:02 PM EDT us Tacho Echavarria MD CHEMISTRY ORDERABLES Final Result Performing Organization Address [facility] [place] [address] * MISCELLANEOUS LAB (01/06/2025 1:13 PM EDT) Only the most recent of2 resultswithin the time period is included. [facility] MISC COMMENT Tiago 01/07/2025 7:35 AM EDT [facility] Blood VENOUS STRUCTURE / Unknown Port / Unknown 01/06/2025 1:13 PM EDT 01/07/2025 7:31 AM EDT us Tacho Echavarria MD HEMATOLOGY ORDERABLES Final Result Performing Organization Address City/[facility]/ZIP Co de Phone Number [address] [address] * PHARMACOGENOMIC PANEL (01/06/2025) [facility] Pharmacogenomic Lab Comments See Comment CLARA Comment:Hemizygous males and homozygous females are reported as HTR2C CC. Pharmacogenomic Lab Method See Comment CLARA Comment: This test was developed, and its performance characteristics determined by [employer], a clinical laboratory located at [address] [place] [address]. These tests have not been cleared or approved by the U.S. Food and Drug Administration. The FDA does not require this test to go through premarket FDA review. Clara is certified under CLIA-88 and accredited by the College of [place] Of [place] Pathologists as qualified to perform high-complexity testing. This test is approved for clinical use by the [facility] Department of [facility]. This test should not be regarded as investigational or for research. *Genomic DNA was analyzed by PCR using [employer] TaqMan and/or AkerminQ probe-based methods to interrogate the variant locations [...] Clara through the website or by calling [phone]. Blood 01/06/2025 01/22/2025 Narrative CLARA - 01/27/2025 This result has genomic variants that were not included in this document. us Aury Delgado MD MARTINGRAEME - ORDERABLES Final Result CLARA [address]07 [facility] [address] [phone] * ESOPHAGOGASTRODUODENOSCOPY (EGD) (12/01/2024 11:06 AM EDT) [...] King Oliva MD Performing Provider Shaylee curtis, ELECTRICAL MACHINIST ELECTRICAL MACHINIST Viv Martinez RN Wind Projects Supervisor Madelyn Sidhu RN Endoscopy Nurse Aliya [...] AM EDT) CASE REPORT Surgical Pathology Case: [id number] Authorizing Provider: King Oliva MD Collected: 12/01/2024 1059 Ordering Location: [facility] Received: 12/01/2024 1237 Pathologist: Estefany Spencer MD Specimens: A) - Small Intestine, Duodenum, duodenal biopsies via forceps B) - Gastric, gastric biopsies via forceps C) - Gastroesophageal Junction, gastroesophageal junction biopsies via forceps 12/03/2024 10:48 AM EDT [facility] FINAL DIAGNOSIS A. Duodenal biopsies [...] metaplasia and dysplasia. 12/03/2024 10:48 AM EDT [facility] at 1048 EDT GROSS DESCRIPTION A. Received in formalin, in a container labeled with the patient's name, hospital number, and duodenal biopsies via forceps , are seven sahu soft tissue fragments, 0.2-0.5 cm in greatest dimension. The fragments are entirely submitted in A1. Saima George MS, PA ([facility]) 12/01/2024 B. Received in formalin, in a container labeled with the patient's name, hospital number, and gastric biopsies via forceps , are six sahu soft tissue fragments, 0.3-1.1 cm in greatest dimension. The fragments are entirely submitted in B1. Saima George MS, PA ([facility]) 12/01/2024 C. Received in formalin, in a container labeled with the patient's name, hospital number, and gastroesophageal junction biopsies via forceps , are two sahu soft tissue fragments, both 0.4 cm in greatest dimension. The fragments are entirely submitted in C1. Saima George MS, PA ([facility]) 12/01/2024 12/03/2024 10:48 AM EDT [facility] MICROSCOPIC DESCRIPTION The microscopic examination may have been rendered in whole, or in part, by analyzing high-resolution digital images (whole slide images) on the [employer] Digital Pathology platform validated at [facility]. 12/03/2024 10:48 AM EDT [facility] EMBEDDED IMAGES 12/03/2024 10:48 AM T [facility] Tissue DUODENAL STRUCTURE / Unknown 12/01/2024 10:59 AM EDT 12/01/2024 12:37 PM EDT Tissue specimen (specimen) STOMACH STRUCTURE / Unknown 12/01/2024 11:01 AM EDT 12/01/2024 12:37 PM EDT Tissue specimen (specimen) CARDIOESOPHAGEAL JUNCTION STRUCTURE / Unknown 12/01/2024 11:02 AM EDT 12/01/2024 12:37 PM EDT us King Oliva MD PATHOLOGY ORDERABLES Final Result Performing Organization Address City/[facility]/ZIP Co de Phone Number [facility] [address] [place] [address] [facility] 1 [place] [address] * INTRAOP AIRWAY PLACEMENT (12/01/2024 10:56 AM EDT) Narrative [facility] - 12/01/2024 10:56 AM EDT O Shaylee Galarza CRNA 12/01/2024 10:56 AM Intraop Airway Placement: Date/Time: 12/01/2024 10:56 AM Induction type: IV Airway type: Nasal cannula salter Placement verified: End tidal CO2 us Aliya Friedman MD ME ANESTHESIA Final Result Performing Organization Address [facility] de Phone Number [facility] [address] [place] [address] * MM MAMMO DIGITAL STEPHANE DIAGN RIGHT (01/27/2024 11:20 AM EDT) Anatomical Region Laterality Modality Breast Right Mammography 01/27/2024 12:5 7 PM EDT Impressions 01/27/2024 12:57 PM EDT Incomplete-need additional imaging evaluation ([id number]) ~ RECOMMENDATION: Ultrasound of the right breast. [...] mammogram, in accordance with the [place] College of Radiology and the Society of [...] sinceprior. ~ IMPRESSION: Incomplete-need additional imaging evaluation ([id number]) ~ RECOMMENDATION: Ultrasound of the right breast. [...] mammogram, in accordance with the [place] College of Radiology and the Society of Breast Imaging recommendations. Jeanette Smith APRN IMG MAMMOGRAPHY ORDERABLES Final Result * GMED COLONOSCOPY (07/12/2015 2:30 PM EST) 07/12/2015 2:30 PM EST Impressions [facility] - 07/12/2015 3:30 PM EST [...] MD GI PROCEDURE ORDERABLES Doris mcmahon Result [facility] 1 [place] [address] from Last 3 Months or Most Recently Relevant to Health Maintenance Insurance [place] [address] MDR [facility] [id number] MDR Advance Directives For more information, please contact: [phone] * Full Code (Latest Code Status on File) Date Activated Date Inactivated Comments 05/01/2017 2:57 PM 05/03/2017 5:30 PM Care Teams Medical Writer Relationship Specialty [place] [address] [place] [address] PCP - General 06/21/10 Arlyn Schmidt MD [facility] [place] [address] Consulting Physician Internal Medicine-Endocrinology, Diabetes & Metabolism 11/28/20 Tacho Echavarria MD 1 [place] [address] Internal Medicine-Medical Oncology 11/12/23 Matt Ulrich MD 1 [place] [address] Surgery-Surgical Oncology 12/04/23 Eze Brock Pastoral Care 12/13/23 Annette Walker, ARACELI Power Generating Plant Operator 05/13/24 Batool Celis MD [address] [place] [address] Radiation Oncologist Radiology-Radiation Oncology 06/08/24
--- OUTSIDE RECORDS SUMMARY | 2025-03-02 07:24 | XMS_ITS | Encounter Summary ---
Author Organization [place] [address] Care Team Providers Care Dry Cleaning Attendant Name Role Phone Chetna Cedeno MD Primary Care Provider Arlyn Schmidt MD Unavailable [phone] Tacho Echavarria MD Unavailable Matt Ulrich MD Unavailable [phone] Eze Brock Unavailable Cheryl Nair RN Unavailable [phone] Annette Walker TELEGRAPH SERVICE RATER Unavailable [phone] Batool Celis MD Unavailable [phone] Encounter Details Date Type Department Care Team (Late st Contact Info) Description 12/07/2024 Results Follow-Up [facility] [address] [facility] [place] [address] King Oliva MD [address] [place] [address] PATHOLOGY TISSUE REQUEST Social History Tobacco Use [...] in a fci (including now)? No 11/07/2023 [facility] IP Transportation Answer D ate Recorded [...] Assessment Author No 12/06/2022 2:08 PM Macarena Henosn CCMA * Does this person have difficulty dressing or bathing? Answer Date of Assessment Author No 12/06/2022 2:08 PM Maacrena Henson CCMA * Because of a physical, [...] [facility] [address] [place], [place] [id number] Samm Ledesma, TRAY PACKER [address] [place] [address] 03/10/2025 12:30 PM EDT Appointment [facility] [place], [place] [id number] Tacho Echavarria MD [address] [place] [address] 03/10/2025 1:00 PM EDT [facility]ointment [facility] [place], [place] [id number] Tacho Echavarria MD [address] [place] [address] [phone] 04/29/2025 9:15 AM EDT Appointment [facility] RAD ONC [place], [place] [id number] Batool Celis MD [address] [place] [address] [place] [address] 05/19/2025 2:15 PM EST Office Visit [address] [place] [address] Sin Tran MD [address] [place] [id number] 08/12/2025 10:40 AM EST Appointment [facility] Women's Wellness [place] [facility] [place] [address] Matt Ulrich MD [address] [place] [address] DR MUSA Hameed [place] [address] documented as of this encounter Goals Goal [...] as of this encounter Care Teams Dry Cleaning Attendant Relationship Specialty [place] [address] [place] [address] PCP - General 06/21/10 Arlyn Schmidt MD [address] [place], [place] [id number] Consulting Physician Internal Medicine-Endocrinology , Diabetes & Metabolism 11/28/20 Tacho Echavarria MD 1 [place] [address] Internal Medicine-Medical Oncology 11/12/23 Matt Ulrich MD 1 [place] [address] Surgery-Surgical Oncology 12/04/23 Eze Brock Pastoral Care 12/13/23 Cheryl Nair, RN Oncology Nurse Navigator 03/25/2412/13 Annette Walker, TELEGRAPH SERVICE RATER Operating Room Specialist 05/13/24 Batool Celis MD 1 [facility] [place] [address] Radiation Oncologist Radiology-Radiation Oncology 06/08/24 documented as of this encounter
--- OUTSIDE RECORDS SUMMARY | 2025-03-02 07:27 | XMS_ITS | Encounter Summary ---
Author Organization [place] [address] Care Team Providers Care Solar Water Heater Installer Name Role Phone Chetna Cedeno MD Primary Care Provider [phone] Arlyn Schmidt MD Unavailable [phone] Tacho Echavarria MD Unavailable [phone] Matt Ulrich MD Unavailable [phone] Eze Brock Unavailable Annette Walker RESIDENTIAL INSTRUCTOR Unavailable [phone] Batool Celis MD Unavailable [phone] Reason for Visit * Reason Comments Pharmacy Oncology Management Abemaciclib Encounter Details Date Type Department Care Team (Latest Contact Info) Description 02/25/2025 Specialty Pharmacy [facility] [address] [place] [address] Annette Renee, xerox machine mechanic Pharmacy Oncology Management (Abemaciclib) Social History Tobacco [...] th e electric, gas, oil, or water [employer] threatened to shut off services in your [...] Date Recorded PHQ-2 Total Score 5 07/07/2024 [facility] [place] of Occupat ional Health - Occupational Stress [...] a group home (including now)? No 11/07/2023 [facility] IP Transportation Answer D [...] of Assessment Author No 12/06/2022 2:08 PM aMcarena Henson CCMA * Because of a physical, [...] HECTOR [address] [facility] [address] [place] [address] Samm Ledesma, PRENATAL GENETIC COUNSELOR [address] [place] [address] 03/10/2025 12:30 PM EDT Appointment [facility] [place], [place] [phone] Tacho Echavarria MD [address] [place] [phone] 03/10/2025 1:00 PM EDT Appointment [facility] [place], [place] [phone] Tacho Echavarria MD [address] [place] [address] [phone] 04/29/2025 9:15 AM EDT Appointment [facility] RAD ONC [place], [place] [phone] Batool Celis MD [address] [facility] [place] [address] 05/19/2025 2:15 PM EST [facility] [address] [place] [address] Sin Tran MD [address] [place], [place] [address] [address] 08/12/2025 10:40 AM EST Appointment [facility] Women's Wellness [facility] [place] [phone] Matt Ulrich MD 20 [facility] [address] [place] [address] documented as of this encounter Goals Goal [...] documented as of this encounter Care Teams Solar Water Heater Installer Relationship Specialty [place] [address] [place] [address] PCP - General 06/21/10 Arlyn Schmidt MD [address] [place] [address] Consulting Physician Internal Medicine-Endocrinology, Diabetes & Metabolism 11/28/20 Tacho Echavarria MD 1 [place], [place] [phone] Internal Medicine-Medical Oncology 11/12/23 Matt Ulrich MD 1 [place] [address] Surgery-Surgical Oncology 12/04/23 Eze Brock Pastoral Care 12/13/23 Annette Walker, ARACELI Cook Relief 05/13/24 Batool Celis MD 1 [facility] [place] [address] Radiation Oncologist Radiology-Radiation Oncology 06/08/24 documented as of this encounter
--- OUTSIDE RECORDS SUMMARY | 2025-03-02 07:27 | XMS_ITS | Encounter Summary ---
Author Organization [place] [address] Care Team Providers Care Tail Edger Name Role Phone Chetna Cedeno MD Primary Care Provider [phone] Arlyn Schmidt MD Unavailable [phone] Tacho Echavarria MD Unavailable [phone] Matt Ulrich MD Unavailable [phone] Eze Brock Unavailable Annette Walker Unavailable [phone] Batool Celis MD Unavailable [phone] Reason for Visit * Reason Onset Date Comments Follow-up 02/12/2025 Updated form, lo an deferment form Encounter Details Date Type Department Care Team (Late st Contact Info) Description 02/12/2025 Telephone [facility] [place], [place] [phone] Eze Rowland MD [address] [place] [address] [phone] Follow-up (Updated form, loan deferment form ) [...] Score 5 07/07/2024 [facility] [place] of Occupat ional Health - Occupational Stress [...] in a intermediate (including now)? No 11/07/[address] [facility] IP Transportation [...] to fill out for loan deferment via [employer] message. documented in this encounter Plan of Treatment Upcoming Encounters Date Type Department Care Team (Late st Contact Info) Description 03/09/2025 12:45 PM EDT Procedure visit [facility] [address] [facility] [address] [place] [address] Samm Ledesma COMPLIANCE FIELD TECHNICIAN [address] [place] [address] 03/10/2025 12:30 PM EDT Appointment [place] [address] Tacho Echavarria MD [address] [place] [address] 03/10/2025 1:00 PM EDT Appointment [facility] [place], [place] [phone] Tacho Echavarria MD [address] [place] [address] 04/29/2025 9:15 AM EDT Appointment [facility] [place] [phone] Batool Celis MD [address] [facility] [place] [phone] 05/19/2025 2:15 PM EST Office Visit [facility] [address] [place] [address] [address] [place] [address] Sin Tran MD [address] [place] [address] 08/12/2025 10:40 AM EST Appointment [facility] Women's Wellness [facility] [place] [address] Matt Ulrich MD [address] [facility] 254 [place] [address] documented as of this encounter Goals Goal [...] documented as of this encounter Care Teams Tail Edger Relationship Specialty [place] [address] [place] [address] PCP - General 06/21/10 Arlyn Schmidt MD [address] [place] [address] Consulting Physician Internal Medicine-Endocrinology, Diabetes & Metabolism 11/28/20 Tacho Echavarria MD 1 [place], [place] [phone] Internal Medicine-Medical Oncology 11/12/23 Matt Ulrich MD 1 [place] [address] Surgery-Surgical Oncology 12/04/23 Eze Brock Pastoral Care 12/13/23 Annette Walker MSW Administrative Analyst 05/13/24 Batool Celis MD 1 [facility] [place] [address] Radiation Oncologist Radiology-Radiation Oncology 06/08/24 documented as of this encounter
--- OUTSIDE RECORDS SUMMARY | 2025-03-02 07:27 | XMS_ITS | Encounter Summary ---
Author Organization [place] [address] Care Team Providers Care Twister Operator Name Role Phone Chetna Cedeno MD Primary Care Provider [phone] Arlyn Schmidt MD Unavailable [phone] Tacho Echavarria MD Unavailable [phone] Matt Ulrich MD Unavailable [phone] Eze Brock Unavailable Cheryl Nair RN Unavailable [phone] Annette Walker HEALTH ANALYST Unavailable [phone] Batool Celis MD Unavailable [phone] Encounter Details Date Type Department Care Team (Late st Contact Info) Description 10/26/2024 Orders Only [facility] Physical Therapy [place] [address] [facility] [address] [place] [address] Shaunna Workman PT Social History [...] Total Score 5 07/07/2024 [facility] [place] of Occupat ional Health - Occupational Stress [...] [facility] [...] [address] [facility] [address] [place] [address] Samm Ledesma, RN CLINICAL DOCUMENTATION [address] [facility] [address] [place], [place] [phone] 03/10/2025 12:30 PM EDT Appointment [place] [address] Tacho Echavarria MD [address] [place] [address] 03/10/2025 1:00 PM EDT Appointment [facility] On[facility] [place], [place] [phone] Tacho Echavarria MD [address] [place] [address] 04/29/2025 9:15 AM EDT Appointment [facility] [place] [address] Batool Celis MD [address] [place] [address] [place] [address] 05/19/2025 2:15 PM EST Office Visit [facility] [address] [facility] [address] [place] [address] Sin Tran MD [facility] [place] [address] 08/12/2025 10:40 AM EST Appointment [facility] Women's Wellness [place] [facility] [place] [address] Matt Ulrich MD [address] [facility] [place] [address] documented as of this encounter [...] documented as of this encounter Care Teams Twister Operator Relationship Specialty [place] [address] [place] [address] PCP - General 06/21/10 Arlyn Schmidt MD [address] [place] [address] Consulting Physician Internal Medicine-Endocrinology , Diabetes & Metabolism 11/28/20 Tacho Echavarria MD 1 [place] [address] Internal Medicine-Medical Oncology 11/12/23 Matt Ulrich MD 1 [place] [address] Surgery-Surgical Oncology 12/04/23 Eze Brock Pastoral Care 12/13/23 Cheryl Nair, RN Oncology Nurse Navigator 03/25/2412/13 Annette Walker, HEALTH ANALYST Commercial Sales Specialist 05/13/24 Batool Celis MD 1 [facility] [place] [address] Radiation Oncologist Radiology-Radiation Oncology 06/08/24 documented as of this encounter
--- OUTSIDE RECORDS SUMMARY | 2025-03-02 07:27 | XMS_ITS | Clinical Summary ---
Author Organization [facility] Address [address] [place] [address] Phone Care Team Providers Care General Engineering Teacher Name Role Phone Outside, Provider Unavailable [phone] Conditions or Problems No information available. Medications No information available. Medications Administered No information available. Allergies, Adverse Reactions, Alerts No information available. Results No information available. Plan of Care No information available. Procedures No information available. Vital Signs No information available. Immunizations No information available. Advance Directives No information available.
--- OUTSIDE RECORDS SUMMARY | 2025-03-02 07:27 | XMS_ITS | Encounter Summary ---
Author [place] [address] Care Team Providers Care Applications Coordinator Name Role Phone Chetna Cedeno MD Primary Care Provider [phone] Leslie Cooley ALLIED HEALTH TEACHER Unavailable UnaBatool Talley LINK TRAINER MAINTENANCE WORKER Unavailable Unavailab Arlyn Disla MD Unavailable [phone] Cheryl Nair RN Unavailable [phone] Tacho Echavarria MD Unavailable [phone] Matt Ulrich MD Unavailable [phone] Hilary Clemens RN Unavailable Unavaila Eze Caro Unavailable Shila Albrecht RN Unavailable Unavail able Cheyanne To RN Unavailable UnavailRayna Johnson RN Unavailable Unavailab Shilpa Olivarez RN Unavailable [phone] Tulio Duong RN Unavailable Unavailable Yaquelin Weaver RN Unavailable Unavailable Pam Wang RN Unavailable Unavailable Jazmín Nair RN Unavailable Unavailable Fidel Rainey RN Unavailable Unavailable Cheryl Nair RN Unavailable [phone] Ophelia Lala RN Unavailable Glo Lee RN Unavailable Unavailab Sanam Evans GOURMET COFFEE ATTENDANT Unavailable Unavailable Hilary Clemens RN Unavailable Unavaila Ruthy Clayton RN Unavailable Unavailable Rayna Partida RN Unavailable Unavailab Artur Nelson RN Unavailable Unavailable Annette Walker GOURMET COFFEE ATTENDANT Unavailable Emmie Crain RN Unavailable Unavailable Brigida Enriquez RN Unavailable Unavailable Fidel Rainey RN Unavailable Unavailable Batool Celis MD Unavailable [phone] Encounter Details Date Type Department Care Team (Late st Contact Info) Description 07/12/2015 Orders Only SEP Gastro [facility] [address] ENTR[address], 3RD [place] [id number] Stone Cronin MD Social History Tobacco Use [...] [facility] [address] [place] [address] Samm Ledesma, SELF PAY COLLECTOR [address] [place] [address] 03/10/2025 12:30 PM EDT Appointment [facility] [place], [place] [id number] Tacho Echavarria MD [address] [place] [address] [id number] 03/10/2025 1:00 PM EDT Appointment [facility] Medical Oncology [place], [place] 2305617 Tacho Echavarria MD [address] [place] [address] [id number] 04/29/2025 9:15 AM EDT Appointment [facility] [place] [address] Batool Celis MD [address] [facility] [address] [facility] [place], [place] [id number] 05/19/2025 2:15 PM EST Office Visit [facility] [address] [place] [address] Sin Tran MD [address] [place] [address] 08/12/2025 10:40 AM EST Appointment [facility] Women's Wellness [facility] [address] Matt Ulrich MD 20 [facility] [address] [place] [id number] documented as of this encounter Procedures Procedure Name Priority Date/Time Associated Diagnosis Comments GMED COLONOSCOPY Routine 07/12/2015 2:30 PM EST documented in this encounter Results * ED COLONOSCOPY (07/12/2015 2:30 PM EST) 07/12/2015 2:30 PM EST Impressions [facility] - 07/12/2015 3:30 PM [...] MD GI PROCEDURE ORDERABLES Doris [email or web address] Result [facility] 1 [place] [address] documented in this encounter Visit Diagnoses Not [...] as of this encounter Care Teams Applications Coordinator Relationship Specialty [place] [address] [place] [address] PCP - General 06/21/10 Leslie Cooley, ALLIED HEALTH TEACHER In School Suspension Aide 01/28/19 07/15/19 Batool Myers, LINK TRAINER MAINTENANCE WORKER In School Suspension Aide 02/13/19 07/15/19 Arlyn Schmidt MD Formerly named [facility] [place] [address] Consulting Physician Internal Medicine-Endocrinolog y, Diabetes & Metabolism 11/28/20 Cheryl Nair, RN Oncology Nurse Navigator 10/29/2302/05 Tacho Echavarria MD 1 [place] [address] Internal Medicine-Medical Oncology 11/12/23 Matt Ulrich MD 1 [place] [address] Surgery-Surgical Oncology 12/04/23 Hilary Clemens, [...] Nurse Infusion Therapy 04/03/24 04/03/24 Sanam Murray, [facility] In School Suspension Aide 04/10/24 07/30/24 Hilary Clemens, RN Registered Nurse Infusion Therapy 04/21/24 04/21/24 Ruthy Walker RN Registered Nurse Infusion Therapy 04/24/24 04/24/24 Rayna Partida, RN Registered Nurse Infusion Clinic 05/01/24 05/01/24 Artur Roberts, RN Registered Nurse Infusion Therapy 05/07/24 05/07/24 Annette Walker, GOURMET COFFEE ATTENDANT In School Suspension Aide 05/13/24 Emmie Crain, RN Registered Nurse Infusion Therapy 05/14/24 05/14/24 Brigida Enriquez, RN Registered Nurse Infusion Clinic 05/21/24 05/21/24 Fidel Rainey, RN Registered Nurse Infusion Therapy 05/28/24 05/28/24 Batool Celis MD [address] [place] [address] [place] [address] Radiation Oncologist Radiology-Radiation Oncology 06/08/24 documented as of this encounter
--- OUTSIDE RECORDS SUMMARY | 2025-03-02 07:28 | XMS_ITS | Encounter Summary ---
Author Organization [place] [address] Care Team Providers Care Project Leader Name Role Phone Chetna Cedeno MD Primary Care Provider [phone] Arlyn Schmidt MD Unavailable [phone] Tacho Echavarria MD Unavailable [phone] Matt Ulrich MD Unavailable [phone] Eze Brock Unavailable Annette Walker Unavailable [phone] Batool Celis MD Unavailable [phone] Reason for Visit * Reason Comments Pharmacy Oncology Management Abemaciclib Encounter Details Date Type Department Care Team (Latest Contact Info) Description 02/03/2025 Specialty Pharmacy [facility] [address] [place] [address] Anisa Lozoya CPhT Pharmacy Oncology [...] from your doctor or pharmacy? Never 11/07/2023 [facility] Utilities Answer Date Recorded In the past 12 months has th e electric, gas, oil, or water [employer] threatened to shut off services in your [...] Date Recorded PHQ-2 Total Score 5 07/07/2024 [facility] [place] of Occupat ional Health - Occupational Stress [...] in a half-way (including now)? No 11/07/2023 [facility] IP [...] she is being discharged tomorrow and will nut picker all her meds. She is unsure of supply left. * Blake Antoine RPH - 02/03/2025 11:05 AM EDT [facility] - Care Plan and Refill [...] [facility] [address] [place] [address] Samm Ledemsa, HORSE RACE TIMER [address] [place] [address] 03/10/2025 12:30 PM EDT Appointment [facility] [place], [place] [id number] Tacho Echavarria MD 1 [place] [address] 03/10/2025 1:00 PM EDT Appointment [facility] [place] [address] Tacho Echavarria MD [address] [place] [address] 04/29/2025 9:15 AM EDT Appointment [place] [address] Batool Celis MD 1 [facility] [place] [address] 05/19/2025 2:15 PM EST Office Visit [address] [address] Sin Tran MD [address] [place] [address] 08/12/2025 10:40 AM EST Appointment [facility] Women's Wellness [facility] [place] [address] Matt Ulrich MD [address] [place] [address] 254 [place] [address] documented as of this encounter Goals Goal [...] documented as of this encounter Care Teams Project Leader Relationship Specialty [place] [address] [place] [id number] PCP - General 06/21/10 Arlyn Schmidt MD [address] [place] [address] Consulting Physician Internal Medicine-Endocrinology, Diabetes & Metabolism 11/28/20 Tacho Echavarria MD 1 [place] [address] Internal Medicine-Medical Oncology 11/12/23 Matt Ulrich MD 1 [place] [address] Surgery-Surgical Oncology 12/04/23 Eze Brock Pastoral Care 12/13/23 Annette Walker MSW Bottle Washer 05/13/24 Batool Celis MD 1 [facility] [place] [address] Radiation Oncologist Radiology-Radiation Oncology 06/08/24 documented as of this encounter
--- OUTSIDE RECORDS SUMMARY | 2025-03-02 07:28 | XMS_ITS | Encounter Summary ---
Author Organization [place] [address] Care Team Providers Care Boat Outfitting Supervisor Name Role Phone Chetna Cedeno MD Primary Care Provider [phone] Arlyn Schmidt MD Unavailable [phone] Tacho Echavarria MD Unavailable [phone] Matt Ulrich MD Unavailable [phone] Eze Brock Unavailable Annette Walker TAFE LECTURER Unavailable [phone] Batool Celis MD Unavailable [phone] Encounter Details Date Type Department Care Team (Late st Contact Info) Description 02/01/2025 Social Work [facility] Cancer Care [facility] [place] [address] Sonny Fleming, TAFE LECTURER Social History Tobacco Use Types Packs/Day Years [...] your doctor or pharmacy? Never 11/07/2023 [facility] Utilities Answer Date Recorded In the past 12 months has th e electric, gas, oil, or water [employer] threatened to shut off services in your [...] Total Score 5 07/07/2024 [facility] [place] of Occupat ional Health - Occupational Stress [...] health care facility (including now)? No 11/07/2023 [facility] IP Transportation Answer [...] - 02/01/2025 3:04 PM EDT 02/01/25 1504 Trust Mail Clerk Assessment Referred By Pt. Call Disease/[place] [facility] Asparagus Cutter Assignment Breast cancer Referral Location: Women???s [...] [facility] [address] [place] [address] Samm Ledesma, BRAZER INDUCTION [address] [place] [address] 03/10/2025 12:30 PM EDT Appointment [place] [address] Tacho Echavarria MD [address] [place] [address] 03/10/2025 1:00 PM EDT Appointment [facility] Medical Oncology [place], [place] [phone] Tacho Echavarria MD 1 [place], [place] [phone] 04/29/2025 9:15 AM EDT Appointment [facility] [place] [address] Batool Celis MD 1 [facility] [place] [address] 05/19/2025 2:15 PM EST Office Visit [facility] [address] [place] [address] [address] [place] [address] Sin Tran MD [address] [place] [address] 08/12/2025 10:40 AM EST Appointment [facility] Women's Wellness [place] One [facility] [place] [address] Matt Ulrich MD [address] [address] documented as of this encounter Goals Goal [...] as of this encounter Care Teams Boat Outfitting Supervisor Relationship Specialty [place] [address] [place] [address] PCP - General 06/21/10 Arlyn Schmidt MD [address] [place] [address] Consulting Physician Internal Medicine-Endocrinology, Diabetes & Metabolism 11/28/20 Tacho Echavarria MD 1 [place] [address] Internal Medicine-Medical Oncology 11/12/23 Matt Ulrich MD 1 [place] [address] Surgery-Surgical Oncology 12/04/23 Eze Brock Pastoral Care 12/13/23 Annette Walker, ARACELI Asparagus Cutter 05/13/24 Batool Celis MD 1 [facility]CER C[facility] [place], [place] [id number] Radiation Oncologist Radiology-Radiation Oncology 06/08/24 documented as of this encounter
--- OUTSIDE RECORDS SUMMARY | 2025-03-02 07:28 | XMS_ITS | Encounter Summary ---
Author Organization [place] [address] Care Team Providers Care Lithoduplicator Operator Name Role Phone Kit Cedeno MD Primary Care Provider [phone] Arlyn Schmidt MD Unavailable [phone] Cheryl Nair RN Unavailable [phone] Tacho Echavarria MD Unavailable [phone] Matt Ulrich MD Unavailable [phone] Hilary Clemens RN Unavailable Unavaila Eze Caro Unavailable Shila Albrecht RN Unavailable Unavail able Cheyanne To RN Unavailable Unavailabl Rayna Wong RN Unavailable Unavailab Shilpa Olivarez RN Unavailable [phone] Tulio Duong RN Unavailable Unavailable Yaquelin Weaver RN Unavailable Unavailable Pam Wang RN Unavailable Unavailable Jazmín Nair RN Unavailable Unavailable Fidel Rainey RN Unavailable Unavailable Cheryl Nair RN Unavailable [phone] Ophelia Lala RN Unavailable Glo Lee RN Unavailable Unavailab Sanam Evans TRIMMER SORTER Unavailable Unavailable Hilary Clemens RN Unavailable Unavaila Ruthy Clayton RN Unavailable Unavailable Rayna Partida RN Unavailable Unavailab Artur Nelson RN Unavailable Unavailable Annette Walker TRIMMER SORTER Unavailable [phone] Emmie Crain RN Unavailable Unavailable Brigida Enriquez RN Unavailable Unavailable Fidel Rainey RN Unavailable Unavailable Batool Celis MD Unavailable [phone] Encounter Details Date Type Department Care Team (Late st Contact Info) Description 10/25/2023 Orders Only [facility] [place] [address] Diane Ellis MD 1 [place] [address] Social History Tobacco Use Types [...] [facility] [address] [place] [address] Samm Ledesma BLOCK OPERATOR [address] [facility] [address] [place] [address] 03/10/2025 12:30 PM EDT Appointment [place] [address] Tacho Echavarria MD [address] [place] [address] 03/10/2025 1:00 PM EDT Appointment [facility] [place] [address] Tacho Echavarria MD [address] [place] [address] 04/29/2025 9:15 AM EDT Appointment [place] [address] Batool Celis MD 1 [facility] [place] [address] 05/19/2025 2:15 PM EST Office Visit [facility] [address] [place] [address] Sin Tran MD [facility] [place] [address] 08/12/2025 10:40 AM EST Appointment [facility] Women's Wellness [place] One [facility] [place] 0823517 Matt Ulrich MD 20 [facility] [address] [place] [id number] documented as of this encounter Goals Goal [...] EDT Requesting Provider: KIT Womack Specimen = [id number] us Diane Ellis MD PATHOLOGY ORDERABLES Final Resul t [facility] [address] [facility] [address] [place] [id number] documented in this encounter Visit Diagnoses Not on filedocumented in this encounter Additional Health Concerns Infection Onset Date Last Indicated Resolved Time COVID-19 09/04/2024 09/04/2024 09/24/2024 10:1 2 PM EDT documented as of this encounter Care Teams Lithoduplicator Operator Relationship Specialty [place] [address] [place] [address] PCP - General 06/21/10 Arlyn Schmidt MD [address] [place], [place] 829[address] Consulting Physician Internal Medicine-Endocrinolog y, Diabetes & Metabolism 11/28/20 Cheryl Nair, RN Oncology Nurse Navigator 10/29/2302/05 Tacho Echavarria MD [address] [place] [address] [id number] Internal Medicine-Medical Oncology 11/12/23 Matt Ulrich MD 1 [place] [address] Surgery-Surgical Oncology 12/04/23 Hilary Clemens, RN Registered Nurse Infusion Therapy 12/05/23 12/05/23 zEe Brock Pastoral Care 12/13/23 Shila Albrecht, RN [...] Nurse Infusion Therapy 04/03/24 04/03/24 Sanam Murray, [facility] Amusement Equipment Operator 04/10/24 07/30/24 Hilray Clemens, RN Registered Nurse Infusion Therapy 04/21/24 04/21/24 Ruthy Walker RN Registered Nurse Infusion Therapy 04/24/24 04/24/24 Rayna Partida, RN Registered Nurse Infusion Clinic 05/01/24 05/01/24 Artur Roberts RN Registered Nurse Infusion Therapy 05/07/24 05/07/24 Annette Walker, TRIMMER SORTER Amusement Equipment Operator 05/13/24 Emmie Crain, RN Registered Nurse Infusion Therapy 05/14/24 05/14/24 Brigida Enriquez, RN Registered Nurse Infusion Clinic 05/21/24 05/21/24 Fidel Rainey, RN Registered Nurse Infusion Therapy 05/28/24 05/28/24 Batool Celis MD [address] [place] [address] [place] [address] Radiation Oncologist Radiology-Radiation Oncology 06/08/24 documented as of this encounter
--- OUTSIDE RECORDS SUMMARY | 2025-03-02 07:28 | XMS_ITS | Encounter Summary ---
Author Organization [place] [address] Care Team Providers Care Auto Glass Installer Name Role Phone Chetna Cedeno MD Primary Care Provider [phone] Arlyn Schmidt MD Unavailable [phone] Tacho Echavarria MD Unavailable [phone] Matt Ulrich MD Unavailable [phone] Eze Brock Unavailable Cheryl Nair RN Unavailable [phone] Annette Walker LINOTYPER Unavailable [phone] Batool Celis MD Unavailable [phone] Encounter Details Date Type Department Care Team (Late st Contact Info) Description 10/27/2024 Orders Only [facility] Physical Therapy Uncertain [address] [facility] [address] [place] [address] Shaunna Workman PT Social History [...] or pharmacy? Never 11/07/2023 [facility] Utilities Answer Date Recorded In the [...] often do you attend chur ch or jainism services? 1 to 4 times per year [...] Date Recorded PHQ-2 Total Score 5 07/07/2024 [facility] [place] of Occupat ional Health - Occupational Stress [...] in a correction (including now)? No 11/07/2023 [facility] IP [...] [address] [facility] [address] [place] [address] Samm Ledesma, SKIING INSTRUCTOR [address] [facility] [address] [place] [address] 03/10/2025 12:30 PM EDT Appointment [facility] [place], [place] [phone] Tacho Echavarria MD [address] [place] [address] [id number] 03/10/2025 1:00 PM EDT Appointment [facility] [place] [address] Tacho Echavarria MD [address] [place] [address] [id number] 04/29/2025 9:15 AM EDT Appointment [facility] RAD ONC [place], [place] [phone] Batool Celis MD [address] [place] [address] 05/19/2025 2:15 PM EST Office Visit [address] [facility] 1D [place] [address] Sin Tran MD [address] [place] [address] RD [place] [address] 08/12/2025 10:40 AM EST Appointment [facility] Women's Wellness [place] [address] [facility] [address] [place] [address] Matt Ulrich MD [address] [place] [address] [address] [place] [address] documented as of this encounter [...] as of this encounter Care Teams Auto Glass Installer Relationship Specialty [place] [address] [place] [phone] PCP - General 06/21/10 Arlyn Schmidt MD [address] [place], [place] 337[address] Consulting Physician Internal Medicine-Endocrinology , Diabetes & Metabolism 11/28/20 Tacho Echavarria MD 1 [place] [address] Internal Medicine-Medical Oncology 11/12/23 Matt Ulrich MD 1 [place] [address] Surgery-Surgical Oncology 12/04/23 Eze Brock Pastoral Care 12/13/23 Cheryl Nair, RN Oncology Nurse Navigator 03/25/2412/13 Annette Walker, ARACELI Group Marketing Vp 05/13/24 Batool Celis MD [address] [facility] [place] [address] Radiation Oncologist Radiology-Radiation Oncology 06/08/24 documented as of this encounter
--- OUTSIDE RECORDS SUMMARY | 2025-03-02 07:28 | XMS_ITS | Encounter Summary ---
Author Organization [place] [address] Care Team Providers Care Cinema Or Theatre Manager Name Role Phone Chetna Cedeno MD Primary Care Provider [phone] Arlyn Schmidt MD Unavailable [phone] Tacho Echavarria MD Unavailable [phone] Matt Ulrich MD Unavailable [phone] Eze Brock Unavailable Annette Walker Unavailable [phone] Batool Celis MD Unavailable [phone] Reason for Visit * Reason Onset Date Comments Other 02/01/2025 Currently inpati ent at [facility] Encounter Details Date Type Department Care Team (Late st Contact Info) Description 02/01/2025 Telephone [facility] Care Medical Oncology [place], [place] 4203117 Tacho Echavarria MD [address] [place] [address] [id number] Other (Currently inpatient at [facility] ) Social History Tobacco Use Types Packs/Day [...] from your doctor or pharmacy? Never 11/07/2023 [facility] Utilities Answer Date Recorded In the past [...] in a custodial (including now)? No 11/07/2023 [facility] IP Transportation Answer [...] to let know she was admitted to [facility] on Saturday and is still there.Has blood clot in lung and potassium was 2.5 Preferred call back number: [phone] documented in this encounter Plan of Treatment Upcoming Encounters Date Type Department Care Team (Late st Contact Info) Description 03/09/2025 12:45 PM EDT Procedure visit [facility] [address] [facility] [address] [place] [address] Samm Ledesma APRN [address] [facility] [address] [place] [address] 03/10/2025 12:30 PM EDT Appointment [facility] [place] [address] Tacho Echavarria MD 1 [place] [address] 03/10/2025 1:00 PM EDT Appointment [facility] Medical Oncology [place], [place] [phone] Tacho Echavarria MD [address] [place] [address] [id number] 04/29/2025 9:15 AM EDT Appointment [facility] [place] [address] Batool Celis MD [address] [facility] [address] [facility]CER C[place], [place] [phone] 05/19/2025 2:15 PM EST Office Visit [facility] [address] [place] [address] 1[address] [place] [address] Sin Tran MD [address] [place] [address] 08/12/2025 10:40 AM EST Appointment [facility] Women's Wellness [facility] [address] Matt Ulrich MD [address] [place] [address] 254 [place] [address] documented as of this encounter Goals Goal [...] documented as of this encounter Care Teams Cinema Or Theatre Manager Relationship Specialty [place] [address] [place] [address] PCP - General 06/21/10 Arlyn Schmidt MD [address] [place], [place] [address] Consulting Physician Internal Medicine-Endocrinology, Diabetes & Metabolism 11/28/20 Tacho Echavarria MD 1 [place], [place] [phone] Internal Medicine-Medical Oncology 11/12/23 Matt Ulrich MD 1 [place], [place] [phone] Surgery-Surgical Oncology 12/04/23 Eze Brock Pastoral Care 12/13/23 Annette Walker, ARACELI Hot Saw Operator 05/13/24 Batool Celis MD 1 [facility] [place] [address] Radiation Oncologist Radiology-Radiation Oncology 06/08/24 documented as of this encounter
--- OUTSIDE RECORDS SUMMARY | 2025-03-02 07:28 | XMS_ITS | Encounter Summary ---
Author [place] [address] Care Team Providers Care Appeals Analyst Name Role Phone Chetna Cedeno MD Primary Care Provider [phone] Arlyn Schmidt MD Unavailable [phone] Tacho Echavarria MD Unavailable [phone] Matt Ulrich MD Unavailable [phone] Eze Brock Unavailable Annette Walker Unavailable [phone] Batool Celis MD Unavailable [phone] Reason for Visit * Reason Comments [facility] En[facility] Details Date Type Department Care Team (Latest Contact Info) Description 02/02/2025 Specialty Pharmacy [facility] [address] [place] [address] Kevin Chacon PharmD Pharmacy [facility] Med[facility] Social History Tobacco Use Types [...] th e electric, gas, oil, or water [employer] threatened to shut off services in your [...] Total Score 5 07/07/2024 [facility] of Occupat ional Health - Occupational Stress [...] in a penitentiary (including now)? No 11/07/2023 [facility] IP Transportation Answer D ate [...] Chacon PharmD - 02/02/2025 1:39 PM EDT [facility] Prescription received for Nurtec (75mg). Prescription requires prior authorization. Will complete clinical review. Patient will not need IA if able to fill here (continuation of therapy). * Kevin Chacon PharmD - 02/02/2025 1:39 PM EDT [facility] - Migraine Clinical Review [place] [...] into the lungs daily. fluticasone propionate 1 [place] by Nasal route daily. Aerochamber MV 1 [facility]Non-[facility]rug; Combo Route) route as needed. ketorolac Take [...] Monson CPhT - 02/02/2025 1:39 PM EDT [facility] Prior Authorization [facility] [employer] via [employer] ([employer] [id number]). Will follow up on 02/04. * Annamarie Mark CPhT - 02/02/2025 1:39 PM EDT [facility] Prior Authorization Determination Received notice of PA approval for [facility] . PA approved from 02/02/2025 to 05/05/2025. Patient is able to fill at [facility]. Copay is $0. No answer, left voicemail to call [phone], option 4. Initial assessment not needed for [...] NEUROLOGY HECTOR [address] [facility] [address] [place] [address] Samm Ledesma APRN [address] [facility] [address] [place] [address] 03/10/2025 12:30 PM EDT Appointment [place] [address] Tacho Echavarria MD [address] [place] [address] 03/10/2025 1:00 PM EDT [facility]ment [facility] [place], [place] [phone] Tacho Echavarria MD [address] [place] [address] 04/29/2025 9:15 AM EDT Appointment [place] [address] Batool Celis MD [address] [place] [address] [place] [address] 05/19/2025 2:15 PM EST Office Visit [facility] Sarah [address] [facility] 401 [facility] 1D [place] [address] Sin Tran MD [facility] [address] 08/12/2025 10:40 AM EST Appointment [facility] Women's Wellness [place] [address] [facility] [place] [address] Matt Ulrich MD [address] [place] [address] [address] [place] [address] documented as of this encounter [...] documented as of this encounter Care Teams Appeals Analyst Relationship Specialty [place] [address] [place] [address] PCP - General 06/21/10 Arlyn Schmidt MD [address] [place] [address] Consulting Physician Internal Medicine-Endocrinology, Diabetes & Metabolism 11/28/20 Tacho Echavarria MD 1 [place] [address] Internal Medicine-Medical Oncology 11/12/23 Matt Ulrich MD 1 [place] [address] Surgery-Surgical Oncology 12/04/23 Eze Brock Pastoral Care 12/13/23 Annette Walker, DIVIDER OPERATOR Profiling Machine Set Up Operator Tool 05/13/24 Batool Celis MD 1 [facility] [place] [address] Radiation Oncologist Radiology-Radiation Oncology 06/08/24 documented as of this encounter
--- OUTSIDE RECORDS SUMMARY | 2025-03-02 07:29 | XMS_ITS | Encounter Summary ---
Author Organization [place] [address] Care Team Providers Care Hair Or Beauty Salon Assistant Name Role Phone Kit Cedeno MD Primary Care Provider [phone] Arlyn Schmidt MD Unavailable [phone] Cheryl Nair RN Unavailable [phone] Tacho Echavarria MD Unavailable [phone] Matt Ulrcih MD Unavailable [phone] Hilary Clemens RN Unavailable Unavaila Eze Caro Unavailable Shila Albrecht RN Unavailable Unavail able Cheyanne To RN Unavailable Unavailabl Rayna Wong RN Unavailable Unavailab Shilpa Olivarez RN Unavailable [phone] Tulio Duong RN Unavailable Unavailable Yaquelin Weaver RN Unavailable Unavailable Pam Wang RN Unavailable Unavailable Jazmín Nair RN Unavailable Unavailable Fidel Rainey RN Unavailable Unavailable Cheryl Nair RN Unavailable [phone] Ophelia Lala RN Unavailable Glo Lee RN Unavailable Unavailab Sanam Evans PEDIATRIC SPORTS MEDICINE SPECIALIST Unavailable Unavailable Hilary Clemens RN Unavailable Unavaila Ruthy Clayton RN Unavailable Unavailable Rayna Partida RN Unavailable Unavailab Artur Nelson RN Unavailable Unavailable Annette Walker PEDIATRIC SPORTS MEDICINE SPECIALIST Unavailable [phone] Emmie Crain RN Unavailable Unavailable Brigida Enriquez RN Unavailable Unavailable Fidel Rainey RN Unavailable Unavailable Batool Celis MD Unavailable [phone] Encounter Details Date Type Department Care Team (Late st Contact Info) Description 10/25/2023 Orders Only [facility] One [facility] [place] [address] Diane Ellis MD 1 [place] [address] Social History Tobacco Use Types [...] [address] [facility] [address] [place] [address] Samm Ledesma BROADCAST TRANSMITTER OPERATOR [address] [facility] [address] [place] [address] 03/10/2025 12:30 PM EDT Appointment [place] [address] Tacho Echavarria MD [address] [place] [address] 03/10/2025 1:00 PM EDT [facility]ment [facility] [place] [address] Tacho Echavarria MD [address] [place] [address] 04/29/2025 9:15 AM EDT Appointment [facility] [place] [address] Batool Celis MD 1 [facility] [place] [address] 05/19/2025 2:15 PM EST Office Visit [facility] [address] [place] [address] Sin Tran MD [facility] [place] [address] 08/12/2025 10:40 AM EST Appointment [facility] Women's Wellness [place] One [facility] [place] [address] Matt Ulrich MD 20 [facility] [address] [place] [id number] documented as of this encounter Goals Goal [...] 10/25/2023 10:4 4 AM EDT Narrative [facility] - 11/01/2023 3:02 PM EDT Requesting Provider: KIT Womack Specimen = [id number] us Diane Ellis MD PATHOLOGY ORDERABLES Final Resul t [facility] [address] [facility] [address] [place] [id number] documented in this encounter Visit Diagnoses Not on filedocumented in this encounter Additional Health Concerns Infection Onset Date Last Indicated Resolved Time COVID-19 09/04/2024 09/04/2024 09/24/2024 10:1 2 PM EDT documented as of this encounter Care Teams Hair Or Beauty Salon Assistant Relationship Specialty [place] [address] [place] [address] PCP - General 06/21/10 Arlyn Schmidt MD [address] [place], [place] [id number] Consulting Physician Internal Medicine-Endocrinolog y, Diabetes & Metabolism 11/28/20 Cheryl Nair, RN Oncology Nurse Navigator 10/29/2302/05 Tacho Echavarria MD [address] [place] [address] [id number] Internal Medicine-Medical Oncology 11/12/23 Matt Ulrich MD [address] [place] [address] [id number] Surgery-Surgical Oncology 12/04/23 Hilary Clemens, RN Registered [...] Nurse Infusion Therapy 04/03/24 04/03/24 Sanam Murray, PEDIATRIC SPORTS MEDICINE SPECIALIST Accounts Administrator 04/10/24 07/30/24 Hilary Clemens, RN Registered Nurse Infusion Therapy 04/21/24 04/21/24 Ruthy Walker RN Registered Nurse Infusion Therapy 04/24/24 04/24/24 Rayna Partida, RN Registered Nurse Infusion Clinic 05/01/24 05/01/24 Artur Roberts RN Registered Nurse Infusion Therapy 05/07/24 05/07/24 Annette Walker, PEDIATRIC SPORTS MEDICINE SPECIALIST Accounts Administrator 05/13/24 Emmie Crain, RN Registered Nurse Infusion Therapy 05/14/24 05/14/24 Brigida Enriquez, RN Registered Nurse Infusion Clinic 05/21/24 05/21/24 Fidel Rainey, RN Registered Nurse Infusion Therapy 05/28/24 05/28/24 Batool Celis MD 1 [facility] [place] [address] Radiation Oncologist Radiology-Radiation Oncology 06/08/24 documented as of this encounter
--- OUTSIDE RECORDS SUMMARY | 2025-03-02 07:29 | XMS_ITS | Encounter Summary ---
Author Organization [place] [address] Care Team Providers Care Utility System Repairer Name Role Phone Kit Cedeno MD Primary Care Provider [phone] Arlyn Schmidt MD Unavailable [phone] Cheryl Nair RN Unavailable [phone] Tacho Echavarria MD Unavailable [phone] Matt Ulrich MD Unavailable [phone] Hilary Clemens RN Unavailable Unavaila Eze Caro Unavailable Shila Albrecht RN Unavailable Unavail able Cheyanne To RN Unavailable Unavailabl Rayna Wong RN Unavailable Unavailab Shilpa Olivarez RN Unavailable [phone] Tulio Duong RN Unavailable Unavailable Yaquelin Weaver RN Unavailable Unavailable Pam Wang RN Unavailable Unavailable Jazmín Nair RN Unavailable Unavailable Fidel Rainey RN Unavailable Unavailable Cheryl Nair RN Unavailable [phone] Ophelia Lala RN Unavailable Glo Lee RN Unavailable Unavailab Sanam Evans SPRINKLER HELPER Unavailable Unavailable Hilary Clemens RN Unavailable Unavaila Ruthy Clayton RN Unavailable Unavailable Rayna Partida RN Unavailable Unavailab Artur Nelson RN Unavailable Unavailable Annette Walker SPRINKLER HELPER Unavailable [phone] Emmie Crain RN Unavailable Unavailable Brigida Enriquez RN Unavailable Unavailable Fidel Rainey RN Unavailable Unavailable Batool Celis MD Unavailable [phone] Encounter Details Date Type Department Care Team (Late st Contact Info) Description 10/25/2023 Orders Only [facility] One [facility] [place] [address] Diane Ellis MD 1 [place] [address] Social History Tobacco Use Types [...] HECTOR [address] [facility] [address] [place] [address] Samm Ledesma SOLDERING INSPECTOR [address] [facility] [address] [place] [address] 03/10/2025 12:30 PM EDT Appointment [facility] [place] [address] Tacho Echavarria MD [address] [place] [address] 03/10/2025 1:00 PM EDT [facility]ointment [facility] [place] [address] Tacho Echavarria MD [address] [place] [address] 04/29/2025 9:15 AM EDT Appointment [facility] [place] [place] [address] Batool Celis MD 1 [facility] [place] [address] 05/19/2025 2:15 PM EST Office Visit [facility] [address] [place] [address] Sin Tran MD [facility] [place] [address] 08/12/2025 10:40 AM EST Appointment [facility] Women's Wellness [place] One [facility] [place] [phone] Matt Ulrich MD 20 [facility] 254 [place] [phone] documented as of this encounter Goals Goal [...] EDT) 10/25/2023 10:4 4 AM EDT Narrative [facility] - 11/06/2023 7:12 PM EDT Requesting Provider: KIT Womack Specimen = [id number] us Diane Ellis MD PATHOLOGY ORDERABLES Final Resul t [facility] [address] [facility] [address] [place] [phone] documented in this encounter Visit Diagnoses Not on filedocumented in this encounter Additional Health Concerns Infection Onset Date Last Indicated Resolved Time COVID-19 09/04/2024 09/04/2024 09/24/2024 10:1 2 PM EDT documented as of this encounter Care Teams Utility System Repairer Relationship Specialty [place] [address] [place] [address] PCP - General 06/21/10 Arlyn Schmidt MD [address] [place] [address] Consulting Physician Internal Medicine-Endocrinolog y, Diabetes & Metabolism 11/28/20 Cheryl Nair, RN Oncology Nurse Navigator 10/29/2302/05 Tacho Echavarria MD [address] [place] [address] Internal Medicine-Medical Oncology 11/12/23 Matt Ulrich MD [address] [place] [address] [phone] Surgery-Surgical Oncology 12/04/23 Hilary Clemens, RN Registered [...] Nurse Infusion Therapy 04/03/24 04/03/24 Sanam Murray, [facility] Layboy Tender 04/10/24 07/30/24 Hilary Clemens, RN Registered Nurse Infusion Therapy 04/21/24 04/21/24 Ruthy Walker RN Registered Nurse Infusion Therapy 04/24/24 04/24/24 Rayna Partida, RN Registered Nurse Infusion Clinic 05/01/24 05/01/24 Artur Roberts RN Registered Nurse Infusion Therapy 05/07/24 05/07/24 Annette Walker, SPRINKLER HELPER Layboy Tender 05/13/24 Emmie Crain, RN Registered Nurse Infusion Therapy 05/14/24 05/14/24 Brigida Enriquez, RN Registered Nurse Infusion Clinic 05/21/24 05/21/24 Fidel Rainey, RN Registered Nurse Infusion Therapy 05/28/24 05/28/24 Batool Celis MD [address] [place] [address] [place] [address] Radiation Oncologist Radiology-Radiation Oncology 06/08/24 documented as of this encounter
--- OUTSIDE RECORDS SUMMARY | 2025-03-02 07:29 | XMS_ITS | Encounter Summary ---
Author [place] [address] Care Team Providers Care Historiography Professor Name Role Phone Chetna Cedeno MD Primary Care Provider [phone] Arlyn Schmidt MD Unavailable [phone] Tacho Echavarria MD Unavailable [phone] Matt Ulrich MD Unavailable [phone] Eze Brock Unavailable Shilpa Cline RN Unavailable [phone] Cheryl Nair RN Unavailable [phone] Ophelia Lala RN Unavailable Glo Lee RN Unavailable Unavailab Sanam Evans ENVELOPE STAMPING MACHINE OPERATOR Unavailable Unavailable Hilary Clemens RN Unavailable Unavaila Ruthy Clayton RN Unavailable Unavailable Rayna Partida RN Unavailable Unavailab Artur Nelson RN Unavailable Unavailable Annette Walker ENVELOPE STAMPING MACHINE OPERATOR Unavailable [phone] Emmie Crain RN Unavailable Unavailable Brigida Enriquez RN Unavailable Unavailable Fidel Rainey RN Unavailable Unavailable Batool Celis MD Unavailable [phone] Encounter Details Date Type Department Care Team (Late st Contact Info) Description 03/18/2024 Lab Requisition [facility] [place] [address] Provider, Unknown Malignant neoplasm of unspecified site [...] Date Recorded PHQ-2 Total Score 0 11/07/2023 [facility] of Occupat [...] in a alf (including now)? No 11/07/2023 Education Answer Date [...] [facility] [address] [place], [place] [phone] Samm Ledesma, CONSULTING PSYCHIATRIST [address] [facility] [address] [place] [address] 03/10/2025 12:30 PM EDT Appointment [facility] [place], [place] [phone] Tacho Echavarria MD [address] [place] [address] [id number] 03/10/2025 1:00 PM EDT Appointment [facility] [place], [place] [phone] Tacho Echavarria MD [address] [place] [address] 04/29/2025 9:15 AM EDT Appointment [facility] [place] [address] Batool Celis MD [address] [place] [address] [place] [address] 05/19/2025 2:15 PM EST Office Visit [facility] [address] [facility] [address] [place] [address] Sin Tran MD [address] [place] [address] 08/12/2025 10:40 AM EST Appointment [facility] Women's Wellness [facility] [place] [address] Matt Ulrich MD [address] [place] [address] DR MUSA Hameed [facility] [address] documented as of this encounter Goals Goal [...] EDT) CASE REPORT Surgical Pathology Report Case: [id number] Authorizing Provider: Provider, Unknown Collected: 03/18/2024 1327 Ordering Location: [facility] Received: 03/18/2024 1327 Pathologist: Diane Ellis MD Specimen: Breast, Right, Request for case [id number] slides to [facility]. 05/04/2024 1:26 PM EDT [facility] FINAL DIAGNOSIS Results will be scanned in this case as an addendum. 05/04/2024 1:26 PM EDT [facility] at 1329 EDT EMBEDDED IMAGES 05/04/2024 1:26 PM EDT [facility] ADDENDUM Refer to Scanned [facility] Surgical Pathology Report. 05/04/2024 1:26 PM EDT [facility] Addendum electronically signed by Diane Ellis MD on 05/04/2024 at 1326 EDT Tissue RIGHT BREAST STRUCTURE / Unknown 03/18/2024 1:27 PM EDT 03/18/2024 1:27 PM EDT us Unknown Provider PATHOLOGY ORDERABLES Edited Res ult - Final [facility] 1 [place] [phone] documented in this encounter Visit Diagnoses Diagnosis Malignant neoplasm of unspecified site of right female breast (HCC) documented in this encounter Additional Health Concerns Infection Onset Date Last Indicated Resolved Time COVID-19 09/04/2024 09/04/2024 09/24/2024 10:1 2 PM EDT Assessment Noted Time PHQ-9 Depression Total Score: 12 024 12:00 PM EDT documented as of this encounter Care Teams Historiography Professor Relationship Specialty [place] [address] [place] [address] PCP - General 06/21/10 Arlyn Schmidt MD [address] [place], [place] [phone] Consulting Physician Internal Medicine-Endocrinolog y, Diabetes & Metabolism 11/28/20 Tacho Echavarria MD 1 [place], [place] [phone] Internal Medicine-Medical Oncology 11/12/23 Matt Ulrich MD 1 [place] [address] Surgery-Surgical Oncology 12/04/23 Eze Brock Pastoral Care 12/13/23 Shilpa Cline, RN Oncology Nurse Navigator 02/04/2403/09 Cheryl Nair, RN Oncology Nurse Navigator 03/25/2412/13 Ophelia Lala, RN Registered Nurse Infusion Therapy 03/27/24 03/27/24 Glo Lee, RN Registered Nurse Infusion Therapy 04/03/24 04/03/24 Sanam Murray, [facility] Clay Caster 04/10/24 07/30/24 Hilary Clemens, RN Registered Nurse Infusion Therapy 04/21/24 04/21/24 Ruthy Walker RN Registered Nurse Infusion Therapy 04/24/24 04/24/24 Rayna Partida, RN Registered Nurse Infusion Clinic 05/01/24 05/01/24 Artur Roberts RN Registered Nurse Infusion Therapy 05/07/24 05/07/24 Annette Walker, [facility] Clay Caster 05/13/24 Emmie Crain, RN Registered Nurse Infusion Therapy 05/14/24 05/14/24 Brigida Enriquez, RN Registered Nurse Infusion Clinic 05/21/24 05/21/24 Fidel Rainey, RN Registered Nurse Infusion Therapy 05/28/24 05/28/24 Batool Celis MD [address] [place] [address] [place] [address] Radiation Oncologist Radiology-Radiation Oncology 06/08/24 documented as of this encounter
--- OUTSIDE RECORDS SUMMARY | 2025-03-02 07:33 | XMS_ITS | Encounter Summary ---
Author Organization [place] [address] Care Team Providers [facility] Representative Name Role Phone Chetna Cedeno MD Primary Care Provider [phone] Arlyn Scmhidt MD Unavailable [phone] Tacho Echavarria MD Unavailable [phone] Matt Ulrich MD Unavailable [phone] Eze Brock Unavailable Annette Walker PHYSIOLOGY TEACHER Unavailable [phone] Batool Celis MD Unavailable [phone] Encounter Details Date Type Department Care Team (Late st Contact Info) Description 02/04/2025 Social Work [facility] [place] [address] Annette Walker, PHYSIOLOGY TEACHER Social History Tobacco Use Types Packs/Day Years [...] Recorded In the past 12 months has [employer] TV, oil, or water [employer] threatened to shut off services in your [...] in a assisted (including now)? No 11/07/[address] [facility] IP Transportation Answer D ate Recorded [...] - 02/04/2025 1:42 PM EDT 02/04/25 1341 [employer] Division Manager Assessment Referred By DT Disease/[place] Site Early Morning Babysitter Assignment Breast cancer Referral Location: [facility] Reason for Referral DT Identified Needs Adjustment to illness;Education/Information;Mental Health;Transportation Social Work Interventions Education/Information;Brief Couseling/Support;Transportation Distress Screening SW Reviewed Yes On this date, ARACELI Spears, BRICK EXTRUDER OPERATOR met with patient in response to receipt of a distress tool submitted on patients behalf. Patient's distress tool rating was 10 and BRICK EXTRUDER OPERATOR provided brief counseling/support to Patient. Patient explained she wanting to moved forward with her life but various issues are causing set backs including a recent hospitalization and newly discovered blood clot in her lung. Patient is continuing telehealth therapy with therapist, Jenniffer and although she had initial appointment with [facility] for medication management, she has not follow up with recommended appointment and request to refill medication has been declined. Patient states she had a reaction to the medication prescribed and has been taking medication prescribed by Dr. Echavarria's office for her depression. We discussed need to establish meterman relationship with therapist/medication management provider for her mental health. BRICK EXTRUDER OPERATOR suggested communication with [facility] regarding side effects and possible alternatives. Patient expresses great relief of being out of the [facility] away from unhealthy relationships but has run into some issues with her new housing. She is working closely with [facility] to move to a lower floor and resolve issues including HVAC issues. She received donated air conditioner from [facility] and [facility] has allowed that unit. BRICK EXTRUDER OPERATOR provided gas cards to assist Patient with fuel costs associated with long drive to her home. Patient expressed that she is focusing on stabilizing her health, gaining strength, and hopes to engage in a volunteer capacity in her new community soon. No other needs identified at this time. BRICK EXTRUDER OPERATOR remains available to support as needed. documented in this encounter Plan of Treatment Upcoming Encounters Date Type Department Care Team (Late st Contact Info) Description 03/09/2025 12:45 PM EDT Procedure visit [facility] [address] [facility] [address] [place] [address] Samm Ledesma, INTERNAL CARVER [address] [place], [place] [id number] 03/10/2025 12:30 PM EDT Appointment [place] [address] Tacho Echavarria MD [address] [place] [address] 03/10/2025 1:00 PM EDT Appointment [facility] [place] [address] Tacho Echavarria MD [address] [place] [address] 04/29/2025 9:15 AM EDT Appointment [facility] [place] [address] Batool Celis MD [address] [place] [address] [place] [address] 05/19/2025 2:15 PM EST Office Visit [facility] Frannie [address] [facility] [address] [place] [address] Sin Tran MD [address] [place] [address] 08/12/2025 10:40 AM EST Appointment [facility] [place] [address] Matt Ulrich MD [address] [place] [address] documented as of this encounter [...] as of this encounter Care Teams Medical Center Representative Relationship Specialty [place] [address] [place] [address] PCP - General 06/21/10 Arlyn Schmidt MD [address] [place] [address] Consulting Physician Internal Medicine-Endocrinology, Diabetes & Metabolism 11/28/20 Tacho Echavarria MD [address] [place] [id number] Internal Medicine-Medical Oncology 11/12/23 Matt Ulrich MD [address] [place] [id number] Surgery-Surgical Oncology 12/04/23 Eze Brock Pastoral Care 12/13/23 Annette Walker, [facility] Early Morning Babysitter 05/13/24 Batool Celis MD 1 [facility] [place] [address] Radiation Oncologist Radiology-Radiation Oncology 06/08/24 documented as of this encounter
--- OUTSIDE RECORDS SUMMARY | 2025-03-02 07:34 | XMS_ITS | Encounter Summary ---
Author Organization [place] [address] Care Team Providers Care Requirements Analyst Name Role Phone Chetna Cedeno MD Primary Care Provider [phone] Arlyn Schmidt MD Unavailable [phone] Tacho Echavarria MD Unavailable [phone] Matt Ulrich MD Unavailable [phone] Eze Brock Unavailable Annette Walker Unavailable [phone] Batool Celis MD Unavailable [phone] Reason for Visit * Reason Onset Date Comments Other 02/05/2025 BW Encounter Details Date Type Department Care Team (Late st Contact Info) Description 02/05/2025 Telephone [facility] [place] [address] [place] [address] [place] [address] [place] [address] Other (BW) Social History Tobacco Use [...] in a mcc (including now)? No 11/07/[address] [facility] IP Transportation [...] potassium tabs for [facility] [place] * Telephone Encounter - Destiny Alejandre CCMA [...] HECTOR [address] [facility] [address] [place] [address] Samm Ledesma APRN [address] [facility] [address] [place] [address] 03/10/2025 12:30 PM EDT Appointment [facility] [place] [id number] Tacho Echavarria MD 1 [place], [place] [phone] 03/10/2025 1:00 PM EDT Appointment [facility] Medical Oncology [place], [place] [phone] Tacho Echavarria MD [address] [place] [address] [id number] 04/29/2025 9:15 AM EDT Appointment [place] [address] Batool Celis MD 1 [facility] [place] [address] 05/19/2025 2:15 PM EST Office Visit [address] [address] Sin Tran MD [address] [place] [address] 08/12/2025 10:40 AM EST Appointment [facility] Women's Wellness [facility] [address] Matt Ulrich MD [address] [place] [address] [address] [place] [address] documented as of this encounter Goals Goal [...] documented as of this encounter Care Teams Requirements Analyst Relationship Specialty [place] [address] [place] [address] PCP - General 06/21/10 Arlyn Schmidt MD [address] [place] [address] Consulting Physician Internal Medicine-Endocrinology, Diabetes & Metabolism 11/28/20 Tacho Echavarria MD 1 [place] [address] Internal Medicine-Medical Oncology 11/12/23 Matt Ulrich MD 1 [place] [address] Surgery-Surgical Oncology 12/04/23 Eze Brock Pastoral Care 12/13/23 Annette Walker MSW Software Engineer Kernel 05/13/24 Batool Celis MD 1 [facility] [place] [address] Radiation Oncologist Radiology-Radiation Oncology 06/08/24 documented as of this encounter
--- OUTSIDE RECORDS SUMMARY | 2025-03-02 07:36 | XMS_ITS | Referral Summary ---
Author Organization [facility] Address [address] [place] [address] Phone Care Team Providers Care Prizer Hand Name Role Phone Chetna Cedeno MD Primary Care Provider [phone] Encounters Date Type Department Care Team Description 01/02/2025 4:26 PM EDT - 01/02/2025 7:27 PM EDT Emergency [facility] Emergency Department [address] [place] [address] Dallin Espinoza MD Heat exhaustion, [...] NITROGEN 16 8 - 26 mg/dL [facility] SODIUM 140 135 - 145 mmol/L [facility] POTASSIUM 3.2(L) 3.6 - 5.1 mmol/L [facility] CHLORIDE 107 98 - 111 mmol/L [facility] CO2 20(L) 21 - 31 mmol/L [facility] GLUCOSE, RANDOM 89 70 - 99 mg/dL [facility] CREATININE 1.06 0.60 - 1.20 mg/dL [facility] ANION GAP 13 4 - 16 mmol/L [facility] CALCIUM 9.0 8.5 - 10.4 mg/dL [facility] ESTIMATED GFR 61 >59 mL/min/1.7 3 m2 [facility] Comment: Estimated GFR was calculated using the CKD-EPI cr (2020) equation refit without race. The equation is recommended by the National Kidney Foundation - [place] Society of Nephrology Task Force. Tested at [facility] [address] [place] [address] Whole Blood 01/02/2025 5:13 PM EDT 01/02/2025 5:25 PM EDT us Dallin Espinoza MD LAB BLOOD ORDERABLES Final Result [facility] [address] [place] [address] [address] * (ABNORMAL) CBC w/ Diff (01/02/2025 5:13 PM EDT) WBC 7.1 3.6 - 10.5 THOU/mcL [facility] [place] RBC 3.75(L) 3.80 - 5.20 MIL/mcL [facility] HEMOGLOBIN 11.2(L) 12.0 - 15.2 g/dL [facility] [place] HEMATOCRIT 33.6(L) 36 - 46 % [facility] MCV 89.6 82 - 97 fL [facility] MCH 30.0 27 - 33 pg [facility] MCHC 33.5 32 - 36 g/dL [facility] RDW 16.0 12.3 - 17.0 % [facility] PLATELET 206 140 - 375 THOU/mcL [facility] MPV 6.9(L) 7.0 - 11.5 fL [facility] ABS. NEUTROPHIL 3.60 1.80 - 7.70 THOU/mcL [facility] ABS LYMPHS 3.00 1.00 - 4.00 THOU/mcL [facility] ABS MONOS 0.30 0.20 - 0.90 THOU/mcL [facility] [place] ABS EOS 0.10 0.03 - 0.45 THOU/mcL [facility] [place] ABS BASOS 0.10 0.00 - 0.20 THOU/mcL [facility] SEGS 51 % [facility] LYMPHOCYTES 43 % CHEMI[facility] Y NORTH MONOCYTES 4 % [facility] EOSINOPHIL 1 % [facility] BASOPHILS 1 % [facility] Comment:Tested at [facility] [address] [facility] [address] Whole Blood 01/02/2025 5:13 PM EDT 01/02/2025 5:25 PM EDT Dallin Espinoza MD LAB BLOOD ORDERABLES Final Result [facility] [address] [place] [address] [facility] [place] [address] [place] [address] * ECG 12 lead (01/02/2025 4:37 PM [...] QTcF 417 ms TH TRACEMASTER QRS Horizontal [place] -19 deg TH TRACEMASTER QRS AXIS 16 deg TH TRACEMASTER I-40 Horizontal [place] 46 deg TH TRACEMASTER I-40 FRONT AXIS -17 deg TH TRACEMASTER T-40 Horizontal [place] -50 deg TH TRACEMASTER T-40 Front [place] 51 deg TH TRACEMASTER T Horizontal [place] 52 deg TH TRACEMASTER T WAVE AXIS 16 deg TH TRACEMASTER S-T Horizontal [place] 60 deg TH TRACEMASTER S-T Front [place] 24 deg TH TRACEMASTER ECG IMPRESSION - BORDERLINE ECG - TH TRACEMASTER ECG IMPRESSION SR-Sinus rhythm-normal P axis, V-rate 50-99 TH TRACEMASTER ECG IMPRESSION LVHVP-Probable left ventricular hypertrophy-mul tiple LVH criteria TH TRACEMASTER ECGGUID [id number] TH TRACEMASTER 01/02/2025 4:37 PM EDT us Dallin Espinoza MD ECG ORDERABLES Final Resu lt TH TRACEMASTER from Last 3 Months Insurance [facility] MEDICAID Care Teams Prizer Hand Relationship Specialty Start Date End Date Chetna Cedeno MD [facility] [address] [place] [address] PCP - General Family Medicine 01/02/25
--- OUTSIDE RECORDS SUMMARY | 2025-03-02 07:36 | XMS_ITS | Encounter Summary ---
Author Organization [place] [address] Care Team Providers Care Right Of Way Maintenance Supervisor Name Role Phone Chetna Cedeno MD Primary Care Provider [phone] Arlyn Schmidt MD Unavailable [phone] Tacho Echavarria MD Unavailable [phone] Matt Ulrich MD Unavailable [phone] Eze Brock Unavailable Annette Walker Unavailable [phone] Batool Celis MD Unavailable [phone] Reason for Visit * Reason Onset Date Comments Integrative Oncology Referral 02/05/2025 Encounter Details Date Type Department Care Team (Late st Contact Info) Description 02/05/2025 Telephone [facility] INT ONC [place], [place] [id number] Narda Vickers, Clerical Staff Integrative Oncology Referral [...] th e electric, gas, oil, or water [employer] threatened to shut off services in your [...] Total Score 5 07/07/2024 [facility] [place] of Occupat ional Health - Occupational Stress [...] longterm (including now)? No 11/07/2023 [facility] IP Transportation Answer D ate Recorded [...] Miscellaneous Notes * Telephone Encounter - Narda Vicekrs, Clerical Staff - 02/05/2025 11:38 AM EDT Appear Here message sent with Integrative Oncology information and newsletter. Narda documented in this encounter Plan of Treatment Upcoming Encounters Date Type Department Care Team (Late st Contact Info) Description 03/09/2025 12:45 PM EDT Procedure visit [facility] [address] [place] [address] Samm Ledesma APRN [address] [place] [address] 03/10/2025 12:30 PM EDT Appointment [place] [address] Tacho Echavarria MD [address] [place] [address] 03/10/2025 1:00 PM EDT Appointment [facility] [place] [address] Tacho Echavarria MD [address] [place] [address] 04/29/2025 9:15 AM EDT Appointment [facility] [address] Batool Celis MD [address] [place] [address] [place] [address] 05/19/2025 2:15 PM EST [facility] [address] [facility] [address] [facility] [address] [place] [address] [facility] [place] [address] 08/12/2025 10:40 AM EST Appointment [facility] Women's Wellness [facility] [address] [facility] Matt Ulrich MD [address] [place] [address] 254 [place] [address] documented as of this encounter Goals Goal Patient Goal Type Associated Problems Recent Progress Patient-Stated? Author Blood Pressure < 140/90 Blood Pressure 121/77(02/04 2:04 PM EDT) No Chetna Cedeno MD Breast [facility] Breast Health On track(2024 11:27 AM EDT) No Jasmin Porter, RAUL Note: Patient acknowledges understanding of new diagnosis, plan of care, available resources and how to contact Nurse Navigator with any future questions or concerns. Breast [facility] Breast Health Not on track(2024 11:27 AM EDT) No Jasmin Porter, RAUL Note: Patient will be compliant with monthly SBE and is aware of who to contact for any unusual or concerning findings. Breast [facility] Breast Health On track(2024 11:27 AM [...] documented as of this encounter Care Teams Right Of Way Maintenance Supervisor Relationship Specialty [place] [address] [place] [address] PCP - General 06/21/10 Arlyn Schmidt MD [address] [place], [place] [phone] Consulting Physician Internal Medicine-Endocrinology, Diabetes & Metabolism 11/28/20 Tacho Echavarria MD 1 [place] [address] Internal Medicine-Medical Oncology 11/12/23 Matt Ulrich MD 1 [place], [place] [phone] Surgery-Surgical Oncology 12/04/23 Eze Brock Pastoral Care 12/13/23 Annette Walker, ARACELI Tool Crib Clerk 05/13/24 Batool Celis MD 1 [facility] [place] [place] [address] Radiation Oncologist Radiology-Radiation Oncology 06/08/24 documented as of this encounter
--- OUTSIDE RECORDS SUMMARY | 2025-03-02 07:36 | XMS_ITS | Encounter Summary ---
Author Organization [place] [address] Care Team Providers Care Cocoa Press Operator Name Role Phone Chetna Cedeno MD Primary Care Provider [phone] Arlyn Schmidt MD Unavailable [phone] Tacho Echavarria MD Unavailable [phone] Matt Ulrich MD Unavailable [phone] Eze Brock Unavailable Annette Walker Unavailable [phone] Batool Celis MD Unavailable [phone] Reason for Visit * Reason Onset Date Comments Symptom Call 02/05/2025 lightheaded / he adache Encounter Details Date Type Department Care Team (Late st Contact Info) Description 02/05/2025 Telephone [facility] Oncology [place], [place] [phone] Tacho Echavarria MD [address] [place] [address] [phone] Symptom Call (lightheaded / headache ) Social [...] No 11/07/2023 [facility] IP Transportation Answer D [...] seen at: [facility] Preferred call back number: [phone] Explained to the caller, if this is a medical emergency please call 911 or go to the nearest emergency room. documented in this encounter Plan of Treatment Upcoming Encounters Date Type Department Care Team (Late st Contact Info) Description 03/09/2025 12:45 PM EDT Procedure visit [facility] [address] [place] [address] Samm Ledesma, ERADICATOR [address] [address] [place] [address] 03/10/2025 12:30 PM EDT Appointment [place] [address] Tacho Echavarria MD [address] [place] [address] 03/10/2025 1:00 PM EDT Appointment [facility] [place] [address] Tacho Echavarria MD [address] [place] [phone] 04/29/2025 9:15 AM EDT Appointment [facility] [address] Batool Celis MD 1 [facility] [place] [address] 05/19/2025 2:15 PM EST Office Visit [facility] [address] [place] [address] Sin Tran MD [address] [place] [address] 08/12/2025 10:40 AM EST Appointment [facility] Women's Wellness [place] [address] Matt Ulrich MD 20 [place] [address] documented as of this encounter Goals Goal [...] documented as of this encounter Care Teams Cocoa Press Operator Relationship Specialty [place] [address] [place] [address] PCP - General 06/21/10 Arlyn Schmidt MD [address] [place], [place] [phone] Consulting Physician Internal Medicine-Endocrinology, Diabetes & Metabolism 11/28/20 Tacho Echavarria MD 1 [place], [place] [phone] Internal Medicine-Medical Oncology 11/12/23 Matt Ulrich MD 1 [place], [place] [phone] Surgery-Surgical Oncology 12/04/23 Eze Brock Pastoral Care 12/13/23 Annette Walker MSW Sanding Supervisor 05/13/24 Batool Celis MD 1 [facility] CANCER [place], [place] [phone] Radiation Oncologist Radiology-Radiation Oncology 06/08/24 documented as of this encounter
--- NOTE | 2025-03-02 08:00 | US_ITS ---
FINAL REPORT CLINICAL HISTORY: rt chest wall nodule -- rt chest wall fna -- fuad sanchez FINDINGS: Ultrasound guided fine needle aspiration HISTORY: right lateral chest wall nodule. History of breast cancer. Attending radiologist: Dr. Kuhn Physician Police Chief: Fuad Johnson PA-C PROCEDURE: After informed consent was obtained and a time-out was performed, the patient was prepped and draped in usual sterile fashion over the right lateral chest wall. Utilizing local anesthesia and sterile technique with a 25-gauge needle, access to lesion was obtained. A total of 5 passes were made under direct ultrasound guidance. The patient received no conscious sedation. The patient tolerated procedure well and left the department in good condition. The attending pathologist's data entry assistant determined that the sample contained diagnostic material. IMPRESSION: Status post ultrasound guided biopsy of right chest wall nodule without immediate complication. Reviewed, Interpreted and Dictated by Amanda Kuhn MD Transcribed by TREV Crespo Authenticated and [facility]
== END 2025-03-02 23:59 | disposition home or self-care (01) ==
LOC: RAD 07:09
PROVIDERS: PCP Family Medicine; Visit Provider Internal Medicine Medical Oncology
DX: D05.11 Intraductal carcinoma in situ of right breast (principal); R22.2 Localized swelling, mass and lump, trunk; Z98.890 Other specified postprocedural states
CPT/HCPCS: 10005

== ENCOUNTER 2025-03-11 09:35 | Outpatient (CLI) | payer MEDICAID, SELFPAY ==
--- OUTSIDE RECORDS SUMMARY | 2025-01-13 14:56 | XMS_ITS | Encounter Summary ---
Author Organization [place] [address] Care Team Providers Care Sprinkler Fitter Helper Name Role Phone Chetna Cedeno MD Primary Care Provider [phone] Arlyn Schmidt MD Unavailable [phone] Tacho Echavarria MD Unavailable [phone] Matt Ulrich MD Unavailable [phone] Eze Brock Unavailable Annette Walker Unavailable [phone] Batool Celis MD Unavailable [phone] Reason for Visit * Physical Therapy (Emergency) - Closed Specialty Diagnoses / Procedures Referred By Contac t Referred To Contact Physical Therapy Diagnoses 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) Chemotherapy follow-up examination Malignant neoplasm of right female breast, unspecified estrogen receptor status, unspecified site of breast (HCC) Port-A-Cath in place Tacho Echavarria MD 1 [place] [address] Phone: tel: fax: Shaunna Workman PT Referral ID Status Reason Start Date Expiration Date V isits Requested Visits Authorized [id number] Closed Specialty Services Required 10/08/2024 01/28/202507 31 Encounter Details Date Type Department Care Team (Latest Contact Info) Description 01/13/2025 2:56 PM EDT - 01/13/2025 11:59 PM EDT Hospital Encounter [facility] Physical Therapy [address] [place] [address] Shaunna Workman PT Discharge Disposition: Home or [...] from your doctor or pharmacy? Never 11/07/2023 [facility] Utilities Answer Date Recorded In [...] any clubs o r organizations such as samaritan groups, unions, fraternal or athletic groups, or [...] Date Recorded PHQ-2 Total Score 5 07/07/2024 [facility] [place] of Occupat ional Health - Occupational Stress [...] any time in the past 12 m [facility], were you homeless or living in a long term (including now)? No 11/07/2023 [facility] IP Transportation Answer D ate Recorded In [...] mouth 2 times daily. 56 Tablet 4 03/10/2025 2:43 PM EDT 5 albuterol (PROVENTIL HFA;VENTOLIN HFA) [...] 4 fluticasone propionate (FLONASE) 50 mcg/actuation Nasl [place], Suspension 1 [place] by Nasal route daily. 1 Each 11 [...] 500 mcg/ml in pain pump. 60 mcg/day abemaciclib (VERZENIO) 50 mg Oral TabletIndications :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) Take 1 Tablet by mouth 2 times daily. 56 Tablet 1 12/03/2024 3:46 PM EDT 5 02/26/20 25 atogepant 60 mg Oral Tablet Take 1 Tablet by mouth daily. 30 Tablet 5 01/06/2025 12:01 PM EDT 5 02/03/20 25 DULoxetine (CYMBALTA) 30 mg Oral Capsule, Delayed Release(E.C.)Shalini cations:Reactive depression Take 1 Capsule by mouth daily. 30 Capsule 1 12/10/2024 4:12 PM EDT 5 01/15/20 25 ergocalciferol (VITAMIN D) 1,250 mcg (50,000 unit) Oral CapsuleIndication s:Vitamin D deficiency Take 1 Capsule by mouth once a week. 12 Capsule 3 4 01/16/20 25 exemestane (AROMASIN) 25 mg Oral Tablet Take 25 mg by mouth daily. 5 02/09/20 25 lidocaine-priloca ine (EMLA) Top CreamIndications: Invasive ductal carcinoma of breast, female, right (HCC) Apply dime size amount to port area 30 minutes prior to port access. 30 g 1 5 01/19/20 25 ubrogepant (UBRELVY) 100 mg Oral Tablet Take one tablet by mouth at onset of migraine. May repeat dose in 2 hours one time up to a maximum of 200mg per 24 hours. 10 Tablet 5 01/15/2025 3:10 PM EDT 5 02/03/20 documented as of this encounter Discharge Disposition [...] to walk with no AD by then, [place] (but pt states that she was told this may have been a misdiagnosis), currently taking chemo pill, R mastectomy Jun 2024, radiation ended 09/25/24, chronic back issues with sciatica Physician: Jericho ESCOBAR Follow Up: 11/11/24 Evaluation Date: 10/30/24 Reassessment Due: 12/26/24 Primary Insurance: [facility]ICA[facility] [id number] [facility] Secondary Insurance: n/a Insurance Authorization: AMB REFERRAL TO PHYSICAL THERAPY Authorized (10/08/2024-01/28/2025) Visits Requested Visits Authorized Visits Completed Visits Scheduled -- Details Referral ID: [id number] Authorization Status Reason: Received Carrier Authorization Authorization Comments: -- Referred To: Shaunna Workman PT at [facility] PT Referred By: Tacho Echavarria MD at [facility] CANCER CTR MED ONC, [facility] Creation Date: 10/08/2024 Referral Reasons: Specialty Services [...] other week Needs Assistance: No Understood: Yes administrative secretary // bars with unilat UE support [] high marches x10B [] hamstring curls x10B administrative secretary // bars with B UE support [] [...] deficits. pt verbalized understanding of this again. administrative secretary // bars with unilat UE support [] [...] arm swing during gait [] NMR education administrative secretary // bars with no support with gait [...] up about 2 days ago. Access Code: [email or web address] URL: [email or web address] Date: 11/11/2024 Prepared by: Romana Bowman Exercises [...] will be Independent with HEP to improve residential health and reduce risk for injury. indbut [...] increase from 727 feet with RW to 4750-5880 feet with LRAD to improve gait elisha [...] away. Treatments to consist of Therapeutic exercise 33253, Neuromuscular re-education 79479, Manual soft tissue and/or joint mobilization 65675, Patient education, Therapeutic activity 48356, and Gait training 09865. Electronically signed by: Signed: Shaunna Workman, PT Date: 01/13/2025 documented in this encounter Plan of Treatment Upcoming Encounters Date Type Department Care Team (Late st Contact Info) Description 04/29/2025 9:15 AM EDT Appointment [facility] [place] [address] Batool Celis MD [address] [place] [address] CANCER CARE [place] [id number] 05/19/2025 2:15 PM EST Office Visit [facility] [address] [place] [address] [place] [address] [place] [address] 06/09/2025 12:45 PM EST Procedure visit [facility] [address] [place] [address] Samm Ledesma, [employer] [address] [place], [place] [phone] 08/12/2025 10:40 AM EST Appointment [facility] Women's Wellness [facility] [place] [phone] Matt Ulrich MD [address] [place] [address] [address] [place] [phone] documented as of this encounter Goals Goal [...] documented as of this encounter Care Teams Sprinkler Fitter Helper Relationship Specialty [place] [address] [place] [address] PCP - General 06/21/10 03/08/25 Arlyn Schmidt MD [address] [place], [place] [id number] Consulting Physician Internal Medicine-Endocrinology, Diabetes & Metabolism 11/28/20 Tacho Echavarria MD 1 [place] [address] Internal Medicine-Medical Oncology 11/12/23 Matt Ulrich MD 1 [place] [address] Surgery-Surgical Oncology 12/04/23 Eze Brock Pastoral Care 12/13/23 Annette Walker MSW Solution Lead 05/13/24 Batool Celis MD 1 [facility] CANCER [place] [phone] Radiation Oncologist Radiology-Radiation Oncology 06/08/24 documented as of this encounter
--- OUTSIDE RECORDS SUMMARY | 2025-01-15 11:55 | XMS_ITS | Encounter Summary ---
Author Organization [place] [address] Care Team Providers Care Efficiency Engineer Name Role Phone Chetna Cedeno MD Primary Care Provider [phone] Arlyn Schmidt MD Unavailable [phone] Tacho Echavarria MD Unavailable [phone] Matt Ulrich MD Unavailable [phone] Eze Brock Unavailable Annette Walker Unavailable [phone] Batool Celis MD Unavailable [phone] Reason for Visit * Physical Therapy (Routine) - Closed Specialty Diagnoses / Procedures Referred By Contac t Referred To Contact Physical Therapy Diagnoses Invasive ductal carcinoma of breast, female, right (HCC) Acquired lymphedema Matt Ulrich MD [address] [facility] [address] [place] [address] Phone: tel: fax: Kylah Lawler PT Referral ID Status Reason Start Date Expiration Date V isits Requested Visits Authorized [id number] Closed Specialty Services Required 09/04/2024 01/18/2025 1 20 Encounter Details Date Type Department Care Team (Latest Contact Info) Description 01/15/2025 11:55 AM EDT - 01/15/2025 1:14 PM EDT Hospital Encounter [facility] Physical Therapy [address] [place] [address] Kylah Lawler, PT Discharge Disposition: Home or [...] doctor or pharmacy? Never 11/07/2023 [facility] Utilities Answer Date Recorded In the [...] often do you attend chur ch or amish services? 1 to 4 times per year 11/07/2023 Do you belong to any clubs o r organizations such as latter day groups, unions, fraternal or athletic groups, or [...] Date Recorded PHQ-2 Total Score 5 07/07/2024 [facility] [place] of Occupat ional Health - Occupational Stress [...] any time in the past [address] [facility], were you homeless or living in a chcf (including now)? No 11/07/2023 [facility] IP Transportation Answer D ate [...] 4 fluticasone propionate (FLONASE) 50 mcg/actuation Nasl [place], Suspension 1 [place] by Nasal route daily. 1 Each 11 [...] Cole : 1965 Visit # / Insurance: ([employer] [facility], 20 VISITS, , ANTHEM IS SHOWING NOT ELIGIBLE AND [employer] IS SHOWING ANTHEM PRIMARY. PATIENT NEEDS TO GET THIS RESOLVED, [employer] Auth [id number] 12 Visits 09/25/24-10/25/24, [employer] Auth [id number] Date Ext 09/25/24-11/24/24 [employer] Auth [id number] DATE extended to 01/18) Onset Date: 08/08/24 [...] progression H/o issued, referral to [facility] for home pump Independent as able, waiting [...] EDT Appointment [place] [address] Batool Celis MD [address] [place] [address] [facility] [place] [id number] 05/19/2025 2:15 PM EST Office Visit [facility] [address] [place] [address] [address] [place] [address] Sin Tran MD [address] [place] [address] 06/09/2025 12:45 PM EST Procedure visit [facility] [address] [facility] [address] [place], [place] [address] Samm Ledesma APRN [address] [facility] [facility] [address] [place] [address] 08/12/2025 10:40 AM EST Appointment [facility] Women's Wellness [facility] [place] [address] Matt Ulrich MD [address] [facility] [address] [place] [address] documented as of this encounter Goals Goal [...] documented as of this encounter Care Teams Efficiency Engineer Relationship Specialty [place] [address] [place] [address] PCP - General 06/21/10 03/08/25 Arlyn Schmidt MD [address] [place] [address] Consulting Physician Internal Medicine-Endocrinology, Diabetes & Metabolism 11/28/20 Tacho Echavarria MD 1 [place] [id number] Internal Medicine-Medical Oncology 11/12/23 Matt Ulrich MD 1 [place] [address] Surgery-Surgical Oncology 12/04/23 Eze Brock Pastoral Care 12/13/23 Annette Walker, NEGOTIATOR Boat Engine Mechanic 05/13/24 Batool Celis MD 1 [facility] CANCER [place] [id number] Radiation Oncologist Radiology-Radiation Oncology 06/08/24 documented as of this encounter
--- OUTSIDE RECORDS SUMMARY | 2025-01-15 13:15 | XMS_ITS | Encounter Summary ---
Author Organization [place] [address] Care Team Providers Care Industrial Spraypainter Name Role Phone Chetna Cedeno MD Primary Care Provider [phone] Arlyn Schmidt MD Unavailable [phone] aTcho Echavarria MD Unavailable [phone] Matt Ulrich MD Unavailable [phone] Eze Brock Unavailable Annette aWlker Unavailable [phone] Batool Celis MD Unavailable [phone] Encounter Details Date Type Department Care Team (Latest Contact Info) Description 01/15/2025 1:15 PM EDT - 01/15/2025 1:29 PM EDT Hospital Encounter [facility] [place], [place] [id number] Tacho Echavarria MD [address] [place] [phone] Invasive ductal carcinoma of breast, female, right (HCC) (Primary Dx); Cold sweat; Lightheaded; Shakiness Discharge Disposition: Home or Self Care Social [...] from your doctor or pharmacy? Never 11/07/2023 [facility] Utilities Answer Date Recorded [...] often do you attend chur ch or tenriism services? 1 to 4 times per year [...] any time in the past 12 m [facility], were you homeless or living in a half-way (including now)? No 11/07/2023 [facility] IP Transportation Answer D ate [...] 2:08 PM OBEDT Macarena Marion CCMA * Is the person [...] 4 fluticasone propionate (FLONASE) 50 mcg/actuation Nasl [place], Suspension 1 [place] by Nasal route daily. 1 Each 4 [...] Tablet 5 01/15/2025 3:10 PM EDT 02/03/20 25 documented as of this encounter Discharge Disposition Disposition Code Departure Means Destination Home or Self Care documented in this encounter Plan of Treatment Upcoming Encounters Date Type Department Care Team (Late st Contact Info) Description 04/29/2025 9:15 AM EDT Appointment [place] [address] Batool Celis MD [address] [place] [address] [place] [address] 05/19/2025 2:15 PM EST Office Visit [facility] [address] [place] [address] [address] [place] [address] Sin Tran MD [address] [place] [address] 06/09/2025 12:45 PM EST Procedure visit [facility] [address] [place] [address] Samm Ledesma, COOK HELPER FRUIT [address] [place] [address] 08/12/2025 10:40 AM EST Appointment [facility] Women's Wellness [facility] [place] [phone] Matt Ulrich MD [address] [place] [address] [address] [place] [phone] documented as of this encounter Goals Goal [...] Associated Diagnosis Comments CBC WITH DIFF STAT 01/15/2025 1:41 PM EDT Invasive ductal carcinoma of breast, female, right (HCC) Cold sweat Lightheaded Shakiness COMPREHENSIVE METABOLIC PANEL STAT 01/15/2025 1:41 PM EDT Invasive ductal carcinoma of breast, female, right (HCC) Cold sweat Lightheaded Shakiness documented in this encounter Results * (ABNORMAL) COMPREHENSIVE METABOLIC PANEL (01/15/2025 1:41 PM EDT) Sodium 140 136 - 145 mmol/L 01/15/2025 2:05 PM EDT [facility] Potassium 4.0 3.5 - 5.0 mmol/L 01/15/2025 2:05 PM EDT [facility] Chloride 107 98 - 107 mmol/L 01/15/2025 2:05 PM EDT [facility] Total CO2 25 22 - 29 mmol/L 01/15/2025 2:05 PM EDT [facility] Anion Gap 8 7 - 16 mmol/L 01/15/2025 2:05 PM EDT [facility] Calcium 9.3 8.6 - 10.4 mg/dL 01/15/2025 2:05 PM EDT [facility] Glucose Lvl 88 70 - 99 mg/dL 01/15/2025 2:05 PM EDT [facility] BUN 13 6 - 20 mg/dL 01/15/2025 2:05 PM EDT [facility] Creatinine 0.85 0.51 - 1.30 mg/dL 01/15/2025 2:05 PM EDT [facility] Albumin 4.0 3.5 - 5.2 gm/dL 01/15/2025 2:05 PM EDT [facility] Total Protein 6.7 6.4 - 8.3 gm/dL 01/15/2025 2:05 PM EDT [facility] Bili Total 0.3 0.2 - 1.3 mg/dL 01/15/2025 2:05 PM EDT [facility] ALT 8 <=41 U/L 01/15/2025 2:05 PM EDT [facility] AST 14 <=40 U/L 01/15/2025 2:05 PM EDT [facility] Alk Phos 124(H) 36 - 123 U/L 01/15/2025 2:05 PM EDT [facility] eGFR (CKD-EPIcr 2020) 79 >=60 mL/min/1.7 3 m2 01/15/2025 2:05 PM EDT [facility] Comment:Estimated GFR was ca lculated using the CKD-EPIcr (2020) equation refit without race. The equation is recommended by the National Kidney Foundation - [place] Society of Nephrology Task Force. Blood VENOUS BLOOD / Unknown Venipuncture / Unknown 01/15/2025 1:41 PM EDT 01/15/2025 1:44 PM EDT us Heydi Sorensen COOK HELPER FRUIT CHEMISTRY ORDERABLES Final Res ult [facility] 1 [place] [id number] * (ABNORMAL) CBC WITH DIFF (01/15/2025 1:41 PM EDT) WBC 4.5 3.7 - 10.3 x10(3)/mc L 01/15/2025 1:49 PM EDT [facility] RBC 3.40(L) 3.90 - 5.20 x10(6)/mc L 01/15/2025 1:49 PM EDT [facility] Hgb 10.3(L) 11.2 - 15.7 g/dL 01/15/2025 1:49 PM EDT [facility] Hct 31.7(L) 34.0 - 45.0 % 01/15/2025 1:49 PM EDT [facility] MCV 93.2 80.0 - 100.0 fL 01/15/2025 1:49 PM EDT [facility] MCH 30.3 26.0 - 34.0 pg 01/15/2025 1:49 PM EDT [facility] MCHC 32.5 30.7 - 35.5 g/dL 01/15/2025 1:49 PM EDT [facility] RDW 14.7 <=14.9 % 01/15/2025 1:49 PM EDT [facility] Platelet 165 155 - 369 x10(3)/mc L 01/15/2025 1:49 PM EDT [facility] MPV 8.4(L) 8.8 - 12.5 fL 01/15/2025 1:49 PM EDT [facility] Neut # Prelim 2.9 1.6 - 6.1 x10(3)/mc L 01/15/2025 1:49 PM EDT [facility] Comment:Preliminary automate d absolute neutrophil count. Value may change if manual differential is indicated. Neut Percent 64.2 % 01/15/2025 1:49 PM EDT [facility] Comment:Neutrophils equals s egs plus bands Imm Gran% 0.2 % 01/15/2025 1:49 PM EDT [facility] Comment:Automated count of m etamyelocytes, myelocytes and promyelocytes. Lymph Percent 28.3 % 01/15/2025 1:49 PM EDT [facility] Payne Percent 5.3 % 01/15/2025 1:49 PM EDT [facility] Eos Percent 1.3 % 01/15/2025 1:49 PM EDT [facility] Baso Percent 0.7 % 01/15/2025 1:49 PM EDT [facility] Neut # 2.9 1.6 - 6.1 x10(3)/mc L 01/15/2025 1:49 PM EDT [facility] Comment:Neutrophils equals s egs plus bands IMMGRAN# 0.0 0.0 - 0.1 x10(3)/mc L 01/15/2025 1:49 PM EDT [facility] Comment:Automated count of m etamyelocytes, myelocytes and promyelocytes. An absolute IG <0.1 is reported as 0.0. Lymph # 1.3 1.2 - 3.9 x10(3)/mc L 01/15/2025 1:49 PM EDT [facility] Payne # 0.2(L) 0.3 - 0.9 x10(3)/mc L 01/15/2025 1:49 PM EDT [facility] Eos# 0.1 0.0 - 0.5 x10(3)/mc L 01/15/2025 1:49 PM EDT [facility] Baso # 0.0 0.0 - 0.1 x10(3)/mc L 01/15/2025 1:49 PM EDT [facility] Blood VENOUS BLOOD / Unknown Venipuncture / Unknown 01/15/2025 1:41 PM EDT 01/15/2025 1:44 PM EDT us Heydi Sorensen COOK HELPER FRUIT HEMATOLOGY ORDERABLES Final Re sult [facility] 1 [place] [address] documented in this encounter Visit Diagnoses Diagnosis Invasive ductal carcinoma of breast, female, right (HCC)- Primary Cold sweat Lightheaded Dizziness and giddiness Shakiness Abnormal involuntary movements documented in this encounter Orders Medications Ordered That Obed ht Not Have Been Administered Count Last Ordered Date First Ordered Date heparin flush 100 unit/mL in jection 500 Units 01/15/2025 sodium chloride 0.9 % sterile syringe 05/2025 sodium chloride 0.9% syringe 1 01/15/2025 documented in this encounter Additional Health Concerns Assessment Noted Time PHQ-9 Depression Total Score: 17 024 8:39 AM EST PHQ-2 Depression Total Score: 5 07/07/20 24 8:39 AM EST documented as of this encounter Care Teams Industrial Spraypainter Relationship Specialty [place] [address] [place] [address] PCP - General 06/21/10 03/08/25 Arlyn Schmidt MD [address] [place], [place] [phone] Consulting Physician Internal Medicine-Endocrinology, Diabetes & Metabolism 11/28/20 Tacho Echavarria MD 1 [place], [place] [phone] Internal Medicine-Medical Oncology 11/12/23 Matt Ulrich MD 1 [place], [place] [phone] Surgery-Surgical Oncology 12/04/23 Eze Brock Pastoral Care 12/13/23 Annette Walker, PRUNE WASHER Dehydrator Tender 05/13/24 Batool Celis MD 1 [facility] CANCER [place], [place] [phone] Radiation Oncologist Radiology-Radiation Oncology 06/08/24 documented as of this encounter
--- OUTSIDE RECORDS SUMMARY | 2025-01-15 13:30 | XMS_ITS | Encounter Summary ---
Author Organization [place] [address] Care Team Providers Care Trick Rodeo Rider Name Role Phone Chetna Cedeno MD Primary Care Provider [phone] Arlyn Schmidt MD Unavailable [phone] Tacho Echavarria MD Unavailable [phone] Matt Ulrich MD Unavailable [phone] Eze Brock Unavailable Annette Walker Unavailable [phone] Batool Celis MD Unavailable [phone] Reason for Visit * Reason Comments Follow-up Breast Cancer Invasive ductal carc inoma of breast, female, right Encounter Details Date Type Department Care Team (Latest Contact Info) Description 01/15/2025 1:30 PM EDT - 01/15/2025 11:59 PM EDT Hospital Encounter [facility] Care Medical Oncology [place], [place] [id number] Tacho Echavarria MD [address] [place] [address] [id number] Jeanette Smith APRN 1 [place], [place] [phone] Hot flashes related to aromatase inhibitor therapy [...] In the past 12 months has e [facility], gas, oil, or water [employer] threatened to shut off services in your [...] Date Recorded PHQ-2 Total Score 5 07/07/2024 [facility] [place] of Occupat ional Health - Occupational Stress [...] the past 12 m [facility], were you homeless or living in a senior care (including now)? No 11/07/2023 [facility] IP Transportation Answer D ate Recorded [...] 56 Tablet 4 03/10/2025 2:43 PM EDT albuterol (PROVENTIL HFA;VENTOLIN HFA) 90 [...] 4 fluticasone propionate (FLONASE) 50 mcg/actuation Nasl [place], Suspension 1 [place] by Nasal route daily. 1 Each 11 [...] 02/03/20 25 documented as of this encounter Ordered [...] EDT Appointment [facility] [place] [id number] Batool Celis MD [address] [place] [address] CANCER CARE [place], [place] [id number] 05/19/2025 2:15 PM EST Office Visit [facility] [address] [place] [address] [address] [place] [address] Sin Tran MD [facility] [place] [address] 06/09/2025 12:45 PM EST Procedure visit [facility] [address] [place] [address] Samm Ledesma, LEYLA [address] [facility] [address] [place] [address] 08/12/2025 10:40 AM EST Appointment [facility] Women's Wellness [facility] [place] [id number] Matt Ulrich MD [address] [place] [address] [address] [place] [address] documented as of this encounter Goals Goal [...] documented as of this encounter Care Teams Trick Rodeo Rider Relationship Specialty [place] [address] [place] [address] PCP - General 06/21/10 03/08/25 Arlyn Schmidt MD [address] [place] [address] Consulting Physician Internal Medicine-Endocrinology, Diabetes & Metabolism 11/28/20 Tacho Echavarria MD [address] [place] [address] Internal Medicine-Medical Oncology 11/12/23 Matt Ulrich MD 1 [place] [address] Surgery-Surgical Oncology 12/04/23 Eze Brock Pastoral Care 12/13/23 Annette Walker, ALARM MECHANIC Senior Education Specialist 05/13/24 Batool Celis MD 1 [facility] [address] Radiation Oncologist Radiology-Radiation Oncology 06/08/24 documented as of this encounter
--- OUTSIDE RECORDS SUMMARY | 2025-02-02 11:20 | XMS_ITS | Encounter Summary ---
Author Organization [place] [address] Care Team Providers Care Bleach Range Operator Name Role Phone Chetna Cedeno MD Primary Care Provider [phone] Arlyn Schmidt MD Unavailable [phone] Tacho Echavarria MD Unavailable [phone] Matt Ulrich MD Unavailable [phone] Eze Brock Unavailable Annette Walker Unavailable [phone] Batool Celis MD Unavailable [phone] Encounter Details Date Type Department Care Team (Late st Contact Info) Description 02/02/2025 11:20 AM EDT Telemedicine EDG NEUROLOGY HECTOR [address] [facility] [address] [place] [address] Samm Ledesma, CHAIN MORTISER OPERATOR [address] [address] [place] [address] Chronic migraine without aura, intractable, with status [...] from your doctor or pharmacy? Never 11/07/2023 [facility] Utilities Answer Date Recorded In the [...] any clubs o r organizations such as pentecostalism groups, unions, fraternal or athletic groups, or [...] in the past [address] [facility], were you homeless or living in a jail (including now)? No 11/07/2023 [facility] IP Transportation Answer D ate Recorded [...] follows with oncology and surgical oncology at [place]. She has had more numbness, tingling, pain [...] elevated potassium, diarrhea in the lungs at [facility]. Allergies: allergy list reviewed and accurate [...] by mouth 3 times daily. for abdominal [id number] Capsule 0 DULoxetine (CYMBALTA) 30 mg Oral [...] 6 fluticasone propionate (FLONASE) 50 mcg/actuation Nasl [place], Suspension 1 [place] by Nasal route daily. 1 Each 11 [...] level: High school graduate Occupational History Employer: [employer] Tobacco Use Smoking status: Never Passive exposure: [...] true Transportation Needs: No Transportation Needs (07/07/2024) [facility] IP Transportation In the past 12 months, has lack of reliable transportation kept you from medical appointments, meetings, work or from getting things needed for daily living?: No Physical Activity: Insufficiently Active (07/07/2024) Exercise Vital Sign Days of Exercise per Week: 3 days Minutes of Exercise per Session: 40 min Stress: Stress Concern Present (07/07/2024) [place] of Occupational Health - Occupational Stress Questionnaire Feeling of Stress : Rather much Social Connections: Socially Isolated (11/07/2023) Social Connection and Isolation Panel [NHANES] Frequency of Communication with Friends and Family: Once a week Frequency of Social Gatherings with Friends and Family: Once a week Attends Bahai Services: 1 to 4 times per year Active Member of Clubs or Organizations: No Attends Club or Organization Meetings: Never Marital Status: Never Intimate Partner Violence: Not At Risk (11/07/2023) Humiliation, Afraid, Rape, and Kick questionnaire Fear of Current or Ex-Partner: No Emotionally Abused: No Physically Abused: No Sexually Abused: No Housing Stability: No Transportation Needs (02/24/2024) Received from [facility] Yearly Questionnaire Do you need any [...] a video visit does not replace a zdkx-rx-kxfj exam and further service may be necessary. I advised the patient that we are conducting his/her video visit through the office in a private space onour secure network and this video visit is being conducted in accordance with [facility] telehealth/video visit regulations. Patient had no questions [...] EDT Appointment [place] [address] Batool Celis MD [address] [place] [address] CANCER CARE [place] [id number] 05/19/2025 2:15 PM EST Office Visit [address] [place] [address] Sin Tran MD [address] [place] [address] 06/09/2025 12:45 PM EST Procedure visit EDG NEUROLOGY HECTOR [address] [facility] [address] [place] [address] Samm Ledesma APRN [address] [facility] [facility] [address] [place], [place] [id number] 08/12/2025 10:40 AM EST Appointment [facility] Women's Wellness [facility] [place] [address] Matt Ulrich MD [address] [place] [address] [address] [place] [id number] documented as of this encounter Goals Goal [...] documented as of this encounter Care Teams Bleach Range Operator Relationship Specialty [place] [address] [place] [address] PCP - General 06/21/10 03/08/25 Arlyn Schmidt MD [address] [place] [address] Consulting Physician Internal Medicine-Endocrinology, Diabetes & Metabolism 11/28/20 Tacho Echavarria MD 1 [place], [place] [phone] Internal Medicine-Medical Oncology 11/12/23 Matt Ulrich MD 1 [place], [place] [id number] Surgery-Surgical Oncology 12/04/23 Eze Brock Pastoral Care 12/13/23 Annette Walker, CLAY MINER Hasher Machine Operator 05/13/24 Batool Celis MD 1 [place] [id number] Radiation Oncologist Radiology-Radiation Oncology 06/08/24 documented as of this encounter
--- OUTSIDE RECORDS SUMMARY | 2025-02-04 11:00 | XMS_ITS | Encounter Summary ---
Author Organization [place] [address] Care Team Providers Care Head Of Merchandise Buying Name Role Phone Chetna Cedeno MD Primary Care Provider [phone] Arlyn Schmidt MD Unavailable [phone] Tacho Echavarria MD Unavailable [phone] Matt Ulrich MD Unavailable [phone] Eze Brock Unavailable Annette Walker Unavailable [phone] Batool Celis MD Unavailable [phone] Reason for Referral * Consultation (Routine) - Closed Specialty Diagnoses / Procedures Referred By Contac t Referred To Contact Oncology Diagnoses Invasive ductal carcinoma of breast, female, right (HCC) Procedures [place] OFFICE/OUTPATIENT NEW MODERATE MDM 45 MINUTES Naya García PA-C [address] [place] [address] [address] [place] [address] Phone: tel: fax: [facility] [place] [address] Phone: tel: Referral ID Status Reason Start Date Expiration Date Visits Re quested Visits Authorized [id number] Closed 02/04/2025 02/04/2026 1 1 Question Answer Patient Status In Treatment - Survivorship visit today/not new diagnosis Reason for referral? Survivorship * Mammography (Routine) - Pending Review Specialty Diagnoses / Procedures Referred By Van butler Referred To Contact Radiology Diagnoses Encounter for screening mammogram for breast cancer Procedures MM MAMMO DIGITAL STEPHANE SCREEN LEFT Naya García PA-C [address] [place] [address] [address] [place] [address] Phone: tel: fax: Referral ID Status Reason Start Date Expiration Date V isits Requested Visits Authorized [id number] Pending Review 02/04/2025 02/04/2027 1 1 Reason for Visit * Reason Comments Follow-up Survivorship Encounter Details Date Type Department Care Team (Latest Contact Info) Description 02/04/2025 11:00 AM EDT - 02/04/2025 1:47 PM EDT Hospital Encounter [facility] Women[place] [address] Tacho Echavarria MD [address] [place] [address] Naya García PA-C [address] [place] [address] [address] [place] [address] Invasive ductal carcinoma of breast, female, right [...] doctor or pharmacy? Never 11/07/2023 [facility] Utilities Answer Date Recorded In the past 12 months has [employer], gas, oil, or [employer] threatened to shut off services in your [...] often do you attend chur ch or quaker services? 1 to 4 times per year 11/07/2023 Do you belong to any clubs o r organizations such as zoroastrian groups, unions, fraternal or athletic groups, or [...] Date Recorded PHQ-2 Total Score 5 07/07/2024 [facility] of Occupat ional Health - Occupational Stress [...] in a intermediate (including now)? No 11/07/2023 [facility] Transportation Answer D ate [...] 30 Tablet 5 03/10/2025 2:43 PM EDT 5 BOTOX 200 unit Inj [...] 4 fluticasone propionate (FLONASE) 50 mcg/actuation Nasl [place], Suspension 1 [place] by Nasal route daily. 1 Each 11 [...] omeprazole (PRILOSEC) 40 mg Oral Capsule, Delayed Release(E.C.)Shaliin cations: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) [...] 8 Tablet 5 03/10/2025 2:43 PM EDT 5 rOPINIRole (REQUIP) 0.25 mg [...] 12/03/2024 3:46 PM EDT 5 02/26/20 25 exemestane (AROMASIN) 25 mg Oral Tablet Take 25 mg by mouth daily. 5 02/09/20 25 documented as of this encounter Discharge [...] back pain. Family Hx updated. Discharged from [facility] yesterday, states had a blood [...] Bra fits ok. She was recently in [facility] and diagnosed with PE. On blood [...] cancer support group GENETICS/FAMILY HISTORY: Genetics Negative ([employer] Hereditary Cancer 67-gene panel). No new family [...] Invasive ductal carcinoma, grade 3 ER 80%, SC 11%, Her2 negative B. Breast, right, 5:00 Invasive ductal carcinoma grade 3 ER 92%, SC 55%, Her2 negative 11/11/2023 - Consult Initial [...] to GI tolerance for 2 yr planned (Pioneer-E regimen) 10/2024 - changed to Aromasin d/t [...] Stage IIIB (cT3, cN3a(f), cM0, G3, ER+, SC+, HER2-) Pathologic Stage ypT3, ypN3a, G3, ER+, SC+, HER2- 02/04/2025 - Other Naya García PA-C [...] Stage IIIB (cT3, cN3a(f), cM0, G3, ER+, SC+, HER2-) - Unsigned - Pathologic stage from 07/06/2024: ypT3, ypN3a, G3, ER+, SC+, HER2- - Unsigned RECENT IMAGING: Right MTX [...] 6 fluticasone propionate (FLONASE) 50 mcg/actuation Nasl [place], Suspension 1 [place] by Nasal route daily. 1 Each 11 [...] breast (HCC) 10/14/2023 Migraines MS (multiple sclerosis) ([facility]) Pituitary cyst Prediabetes PTSD (post-traumatic stress disorder) Sleep apnea no cpap Uterine prolapse 06/06/2011 Past Surgical History: Procedure Laterality Date APPENDECTOMY BREAST BIOPSY Right 10/25/2023 5:00 and 6:00 CHOLECYSTECTOMY GASTRIC BYPASS SURGERY N/A 05/01/2017 LAPAROSCOPIC SLEEVE GASTRECTOMY ; Surgeon: Marcus Perez MD; Location: [facility] MAIN OR; Service: General IR 2 LEVEL BILATERAL MEDIAL BRANCH BLOCK LUM SAC 09/01/2018 IR 2 LEVEL BILATERAL MEDIAL BRANCH BLOCK LUM SAC 09/01/2018 [facility] IM[facility]ING IR 2 LEVEL BILATERAL MEDIAL BRANCH BLOCK LUM SAC 01/26/2019 IR 2 LEVEL BILATERAL MEDIAL BRANCH BLOCK LUM SAC 01/26/2019 [facility] SPINE CTR IMAGING IR FLUOROSCOPY GUIDED NEEDLE PLACEMENT 01/17/2021 IR FLUOROSCOPY GUIDED NEEDLE PLACEMENT 01/17/2021 [facility] IR GUIDED INJECT TRANSFORAM EPIDUR LUMB OR SACRAL SINGLE LVL 08/03/2022 IR GUIDED INJECT TRANSFORAMINAL EPIDUR LUMB OR SACRAL SINGLE LVL 08/03/2022 Sin Tran MD [facility] SPINE CTR IMAGING IR PORT PLACEMENT EQUAL OR > 5 YEARS 11/29/2023 IR PORT PLACEMENT EQUAL OR > 5 YEARS 11/29/2023 Joselito Goodwin MD [facility] IR LUMBAR DISC SURGERY 09/11/2012 LUMBAR LAMINECTOMY & DISCECTOMY L4-5 LEFT ; Surgeon: Hetal Borden MD; MASTECTOMY Right 07/06/2024 Right modified radical mastectomy; Surgeon: Matt Ulrich MD; Location: [facility] MAIN OR; Service:General SPINE SURGERY N/A 01/04/2021 PAIN PUMP PERMANENT IMPLANT; Surgeon: Munir Hilton MD; Location: [facility] MAIN OR; Service: Pain Management THORACIC SPINE SURGERY N/A 02/24/2020 SPINAL CORD STIMULATOR IMPLANT; Surgeon: Munir Hilton MD; Location: [facility] MAIN OR; Service: Pain Management TONSILLECTOMY UPPER GASTROINTESTINAL ENDOSCOPY UPPER GASTROINTESTINAL ENDOSCOPY N/A 01/26/2015 ESOPHAGOGASTRODUODENOSCOPY with biopsy and davis dilation; Surgeon: Stone Cronin MD; Location: [facility] ENDOSCOPY; Service: Endoscopy Allergies Allergen Reactions Amoxicillin [...] level: High school graduate Occupational History Employer: [employer] Tobacco Use Smoking status: Never Passive exposure: [...] true Transportation Needs: No Transportation Needs (07/07/2024) [facility] Transportation In the past 12 months, has lack of reliable transportation kept you from medical appointments, meetings, work or from getting things needed for daily living?: No Physical Activity: Insufficiently Active (07/07/2024) Exercise Vital Sign Days of Exercise per Week: 3 days Minutes of Exercise per Session: 40 min Stress: Stress Concern Present (07/07/2024) [place] of Occupational Health - Occupational Stress Questionnaire [...] Stability: No Transportation Needs (02/24/2024) Received from [facility] Yearly Questionnaire Do you need [...] of this patient. Naya García PA-C Breast [facility] Total time approx. 50 minutes, including review of notes, wwzy-yc-vxfw interaction, and documentation. Reviewed past pathology and [...] to access video: Lymphatic Massage YouTube Video [email or web address] Discuss DEXA scan with medical oncology, your last in our system was on 12/29/20. Breast Health Nurse Contact - Report new changes by calling the Breast Health Nurse Line at [phone]. Please remember the nurse checks voice mail [...] Desiree The number to our Boutique is [phone]. You may call to set up an [...] off all the clothes above your waist. electrical maintenance technician front of a mirror in a room [...] circles with your fingers. For the first the [place], press lightly. Forthe second the [place], press harder. For the third the [place], press even harder. Keep making circles with [...] breast in the same way. Sit or data warehousing specialist the shower or tub. With soapy water [...] 12/10/2008 Document Revised: 11/29/2016 Document Reviewed: 05/13/2016 [employer] Patient Education ?? 2018 [employer] It is best not to drink [...] almonds. Get enough vitamin D - recommend [id number] IU/day Vitamin D is the most essential [...] Appointment [facility] [place] [address] Batool Celis MD [address] [place] [address] CANCER CARE [place], [place] [id number] 05/19/2025 2:15 PM EST Office Visit [address] [address] Sin Tran MD [address] [place] [address] 06/09/2025 12:45 PM EST Procedure visit [facility] [address] [place], [place] [id number] Samm Ledesma, CONSULTANT INTERNSHIP [address] [place] [address] 08/12/2025 10:40 AM EST Appointment [facility] Women's Wellness [place] [address] [facility] [place] [address] Matt Ulrich MD [address] [place] [address] [address] [place] [address] Scheduled Orders Name Type Priority [...] Breast Health On track(2024 11:27 AM EDT) Demi Leonardo, RN Note: Patient will be compliant with taking [...] documented as of this encounter Care Teams Head Of Merchandise Buying Relationship Specialty [place] [address] [place] [address] PCP - General 06/21/10 03/08/25 Arlyn Schmidt MD [address] [place], [place] [id number] Consulting Physician Internal Medicine-Endocrinology, Diabetes & Metabolism 11/28/20 Tacho Echavarria MD [address] [place], [place] [id number] Internal Medicine-Medical Oncology 11/12/23 Matt Ulrich MD [address] [place] [address] Surgery-Surgical Oncology 12/04/23 Eze Brock Pastoral Care 12/13/23 Annette Walker MSW Take Away Man 05/13/24 Batool Celis MD 1 [facility] [place] [id number] Radiation Oncologist Radiology-Radiation Oncology 06/08/24 documented as of this encounter
--- OUTSIDE RECORDS SUMMARY | 2025-02-04 13:48 | XMS_ITS | Encounter Summary ---
Author Organization [place] [address] Care Team Providers Care Lvn Home Health Name Role Phone Chetna Cedeno MD Primary Care Provider [phone] Arlyn Schmidt MD Unavailable [phone] Tacho Echavarria MD Unavailable [phone] Matt Ulrich MD Unavailable [phone] Eze Brock Unavailable Annette Walker Unavailable [phone] Batool Celis MD Unavailable [phone] Encounter Details Date Type Department Care Team (Latest Contact Info) Description 02/04/2025 1:48 PM EDT - 02/04/2025 2:02 PM EDT Hospital Encounter [facility] [place], [place] [phone] Tacho Echavarria MD [address] [place] [address] [phone] Invasive ductal carcinoma of breast, female, right [...] any clubs o r organizations such as restorationism groups, unions, fraternal or athletic groups, or [...] PHQ-2 Total Score 5 07/07/2024 [facility] Occupat ional Health - Occupational Stress [...] in a penitentiary (including now)? No 11/07/2023 [facility] IP Transportation Answer D ate [...] 4 fluticasone propionate (FLONASE) 50 mcg/actuation Nasl [place], Suspension 1 [place] by Nasal route daily. 1 Each 11 [...] EDT Appointment [facility] [place] [phone] Batool Celis MD [address] [place] [address] [place] [address] 05/19/2025 2:15 PM EST Office Visit [facility] [address] [facility] [address] [place] [address] Sin Tran MD [address] [place] [address] 06/09/2025 12:45 PM EST Procedure visit [facility] [address] [place], [place] [phone] Samm Ledesma APRN [address] [address] [place] [address] 08/12/2025 10:40 AM EST Appointment [facility] Women's Wellness [place] [phone] Matt Ulrich MD [address] [place] [address] [address] [place] [address] documented as of this encounter [...] questions or concerns. Breast [facility] Breast Health Not on track(2024 11:27 AM EDT) No Jasmin Porter RN Note: Patient will be compliant with monthly SBE and is aware of who to contact for any unusual or concerning findings. Breast [facility] Breast Health On track(2024 11:27 AM EDT) No Demi Garibay RN Note: Patient will be compliant with [...] - 1,245 pg/mL 02/04/2025 4:31 PM EDT [facility] [employer] Folate 6.16 >=4.80 ng/mL 02/04/2025 4:31 PM EDT [facility] [employer] Blood VENOUS BLOOD / Unknown Venipuncture / Unknown 02/04/2025 2:03 PM EDT 02/04/2025 2:03 PM EDT Narrative [facility] [employer] [facility] - 02/04/2025 4:31 PM EDT Ingestion of haroon doses of biotin (>5 mg/day) taken within 8 hours of drawing blood sample can interfere with this immunoassay test. us Tacho Echavarria MD CHEMISTRY ORDERABLES Final Result [facility] [employer] [facility] 1 [facility] , [place] [address] * (ABNORMAL) CBC WITH DIFF (02/04/2025 2:03 PM EDT) WBC 8.1 3.7 - 10.3 x10(3)/mc L 02/04/2025 2:07 PM EDT [facility] RBC 2.95(L) 3.90 - 5.20 x10(6)/mc L 02/04/2025 2:07 PM EDT [facility] Hgb 9.4(L) 11.2 - 15.7 g/dL 02/04/2025 2:07 PM EDT [facility] Hct 28.1(L) 34.0 - 45.0 % 02/04/2025 2:07 PM EDT [facility] MCV 95.3 80.0 - 100.0 fL 02/04/2025 2:07 PM EDT [facility] MCH 31.9 26.0 - 34.0 pg 02/04/2025 2:07 PM EDT [facility] MCHC 33.5 30.7 - 35.5 g/dL 02/04/2025 2:07 PM EDT [facility] RDW 15.0(H) <=14.9 % 02/04/2025 2:07 PM EDT [facility] Platelet 163 155 - 369 x10(3)/mc L 02/04/2025 2:07 PM EDT [facility] MPV 8.8 8.8 - 12.5 fL 02/04/2025 2:07 PM EDT [facility] Neut # Prelim 5.6 1.6 - 6.1 x10(3)/mc L 02/04/2025 2:07 PM EDT [facility] Comment:Preliminary automate d absolute neutrophil count. Value may change if manual differential is indicated. Neut Percent 68.4 % 02/04/2025 2:07 PM EDT [facility] Comment:Neutrophils equals s egs plus bands Imm Gran% 0.2 % 02/04/2025 2:07 PM EDT [facility] Comment:Automated count of m etamyelocytes, myelocytes and promyelocytes. Lymph Percent 23.4 % 02/04/2025 2:07 PM EDT [facility] [place] Percent 5.7 % 02/04/2025 2:07 PM EDT [facility] Eos Percent 2.1 % 02/04/2025 2:07 PM EDT [facility] Baso Percent 0.2 % 02/04/2025 2:07 PM EDT [facility] Neut # 5.6 1.6 - 6.1 x10(3)/mc L 02/04/2025 2:07 PM EDT [facility] Comment:Neutrophils equals s egs plus bands IMMGRAN# 0.0 0.0 - 0.1 x10(3)/mc L 02/04/2025 2:07 PM EDT [facility] Comment:Automated count of m etamyelocytes, myelocytes and promyelocytes. An absolute IG <0.1 is reported as 0.0. Lymph # 1.9 1.2 - 3.9 x10(3)/mc L 02/04/2025 2:07 PM EDT [facility] [place] # 0.5 0.3 - 0.9 x10(3)/mc L 02/04/2025 2:07 PM EDT [facility] Eos# 0.2 0.0 - 0.5 x10(3)/mc L 02/04/2025 2:07 PM EDT [facility] Baso # 0.0 0.0 - 0.1 x10(3)/mc L 02/04/2025 2:07 PM EDT [facility] Blood VENOUS BLOOD / Unknown Venipuncture / Unknown 02/04/2025 2:03 PM EDT 02/04/2025 2:03 PM EDT us Tacho Echavarria MD HEMATOLOGY ORDERABLES Final Result Performing Organization Address [facility] Co de Phone Number [facility] [address] [place] [phone] * IRON+TIBC (02/04/2025 2:02 PM EDT) Pathologist [facility] Iron 82 30 - 160 mcg/dL [...] CHEMISTRY ORDERABLES Final Result Performing Organization Address [facility] Co de Phone Number [facility] 1 [place] [address] [facility], [facility] 1 [facility], [place] [address] * (ABNORMAL) COMPREHENSIVE METABOLIC PANEL (02/04/2025 2:02 PM EDT) Sodium 142 136 - 145 mmol/L 02/04/2025 2:28 PM EDT [facility] Potassium 3.3(L) 3.5 - 5.0 mmol/L 02/04/2025 2:28 PM EDT [facility] Chloride 108(H) 98 - 107 mmol/L 02/04/2025 2:28 PM EDT [facility] Total CO2 19(L) 22 - 29 mmol/L 02/04/2025 2:28 PM EDT [facility] Anion Gap 15 7 - 16 mmol/L 02/04/2025 2:28 PM EDT [facility] Calcium 8.6 8.6 - 10.4 mg/dL 02/04/2025 2:28 PM EDT [facility] Glucose Lvl 134(H) 70 - 99 mg/dL 02/04/2025 2:28 PM EDT [facility] BUN 12 6 - 20 mg/dL 02/04/2025 2:28 PM EDT [facility] Creatinine 0.78 0.51 - 1.30 mg/dL 02/04/2025 2:28 PM EDT [facility] Albumin 3.8 3.5 - 5.2 gm/dL 02/04/2025 2:28 PM EDT [facility] Total Protein 6.0(L) 6.4 - 8.3 gm/dL 02/04/2025 2:28 PM EDT [facility] Bili Total 0.3 0.2 - 1.3 mg/dL 02/04/2025 2:28 PM EDT [facility] ALT 8 <=41 U/L 02/04/2025 2:28 PM EDT [facility] AST 12 <=40 U/L 02/04/2025 2:28 PM EDT [facility] Alk Phos 95 36 - 123 U/L 02/04/2025 2:28 PM EDT [facility] eGFR (CKD-EPIcr 2020) 88 >=60 mL/min/1.7 3 m2 02/04/2025 2:28 PM EDT [facility] Comment:Estimated GFR was ca lculated using the CKD-EPIcr (2020) equation refit without race. The equation is recommended by the National Kidney Foundation - [place] Society of Nephrology Task Force. Blood VENOUS BLOOD / Unknown Venipuncture / Unknown 02/04/2025 2:02 PM EDT 02/04/2025 2:02 PM EDT Tacho Echavarria MD CHEMISTRY ORDERABLES Final Result [facility] 1 [place] [phone] documented in this encounter Visit Diagnoses Diagnosis [...] documented as of this encounter Care Teams Lvn Home Health Relationship Specialty [place] [address] [place] [phone] PCP - General 06/21/10 03/08/25 Arlyn Schmidt MD [address] [place] [address] Consulting Physician Internal Medicine-Endocrinology, Diabetes & Metabolism 11/28/20 Tacho Echavarria MD 1 [place], [place] [phone] Internal Medicine-Medical Oncology 11/12/23 Matt Ulrich MD 1 [place] [address] Surgery-Surgical Oncology 12/04/23 Delmy Eze Pastoral Care 12/13/23 Annette Walker, ARACELI Coach Operator 05/13/24 Batool Celis MD 1 [facility] [place] [address] Radiation Oncologist Radiology-Radiation Oncology 06/08/24 documented as of this encounter
--- OUTSIDE RECORDS SUMMARY | 2025-02-04 14:03 | XMS_ITS | Encounter Summary ---
Author Organization [place] [address] Care Team Providers Care Mailroom Clerk Name Role Phone Chetna Cedeno MD Primary Care Provider [phone] Arlyn Schmidt MD Unavailable [phone] Tacho Echavarria MD Unavailable [phone] Matt Ulrich MD Unavailable [phone] Eze Brock Unavailable Annette Walker Unavailable [phone] Batool Celis MD Unavailable [phone] Reason for Visit * Reason Comments Follow-up Breast Cancer Encounter Details Date Type Department Care Team (Latest Contact Info) Description 02/04/2025 2:03 PM EDT - 02/04/2025 11:59 PM EDT Hospital Encounter Cancer Care Medical Oncology [place], [place] [id number] Tacho Echavarria MD [address] [place] [address] [id number] Invasive ductal carcinoma of breast, female, right [...] Date Recorded PHQ-2 Total Score 5 07/07/2024 [facility] - [...] any time in the past 12 [facility], were you homeless or living in a [facility] (including now)? No 11/07/2023 [facility] IP Transportation Answer D ate Recorded [...] 4 fluticasone propionate (FLONASE) 50 mcg/actuation Nasl Comstock, Suspension 1 Comstock by Nasal route daily. 1 Each 11 [...] were not included. Patient: El Cole CSN: [id number] Date of : 1965 Age: 59 y.o. Date of Service: 02/04/2025 HEMATOLOGY/ONCOLOGY FOLLOW UP VISIT Primary Millinery Salesperson & Oncologist: Tacho Echavarria MD. Patient Care Team: Chetna Cedeno MD as PCP - General Arlyn Schmidt MD as Consulting Physician (Internal Medicine-Endocrinology, Diabetes & Metabolism) Tacho Echavarria MD (Internal Medicine-Medical Oncology) Matt Ulrich MD (Surgery-Surgical Oncology) Eze Brock as Pastoral Care Annette Walker MSW as Senior Manager Mmcoe Batool Celis MD as Radiation Oncologist (Radiology-Radiation Oncology) [facility] , [place], [place]: Dr Beata Kebede: [phone] Next of Kin: Daughter Ruthy Man ([phone]) Patient Contact info: [phone] DIAGNOSIS HISTORY DATE OF INITIAL CONSULTATION: 11/14/23; outside 2nd opinion at on 09/23/2024 CURRENT TREATMENT BREAST CA: adjuvant [place]-E regimen: Aromasin 25mg po daily + dose titration up of Abemacyclib (Verzenio) 50mg po bid -> 100 mg po bid, per NCCN guidelines PE (02/02/25, at [facility]) and 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 Breast, right, 6:00, Invasive ductal carcinoma, grade 3 ER 80%, VT 11%, Her2 negative B. Breast, right, 5:00 Invasive ductal carcinoma grade 3 ER 92%, VT 55%, Her2 negative 11/11/2023 - Consult Initial [...] to GI tolerance for 2 yr planned ([place]-E regimen) 10/2024 - changed to Aromasin d/t [...] Stage ypT3, ypN3a, G3, ER+, VT+, HER2- 02/04/2025 - Other Naya García PA-C [...] CalcPt Dosage Given to Date in Gy 10.93021631 Session Dosage Given in Gy 2.95574274 Reference Point ID LN Boost RP Dosage Given to Date in Gy 10 Session Dosage Given in Gy 1.19252195 Reference Point ID [id number] ISO Dosage Given to Date in Gy 40.86931208 Session Dosage Given in Gy 0.58720070 Plan ID Nd Boost Plan Name Nd [...] mild 11/26/2014 Malignant neoplasm of female breast ([facility]) 10/14/2023 Migraines MS (multiple sclerosis) ([facility]) Pituitary cyst Prediabetes PTSD (post-traumatic stress disorder) Sleep apnea no cpap Uterine prolapse 06/06/2011 PAST SURGICAL HISTORY Past Surgical History: Procedure Laterality Date APPENDECTOMY BREAST BIOPSY Right 10/25/2023 5:00 and 6:00 CHOLECYSTECTOMY GASTRIC BYPASS SURGERY N/A 05/01/2017 LAPAROSCOPIC SLEEVE GASTRECTOMY ; Surgeon: Marcus Perez MD; Location: [facility] MAIN OR; Service: General IR 2 [...] radical mastectomy; Surgeon: Matt Ulrich MD; Location: [facility] MAIN OR; Service:General SPINE SURGERY N/A 01/04/2021 PAIN PUMP PERMANENT IMPLANT; Surgeon: Munir Hilton MD; Location: [facility] MAIN OR; Service: Pain Management THORACIC SPINE SURGERY N/A 02/24/2020 SPINAL CORD STIMULATOR IMPLANT; Surgeon: Munir Hilton MD; Location: [facility] MAIN OR; Service: Pain Management TONSILLECTOMY UPPER GASTROINTESTINAL ENDOSCOPY UPPER GASTROINTESTINAL ENDOSCOPY N/A 01/26/2015 ESOPHAGOGASTRODUODENOSCOPY with biopsy and davis dilation; Surgeon: Stone Cronin MD; Location: [facility]; Service: Endoscopy FAMILY HISTORY Family History [...] agent therapy, also reinforced via consult at [facility] at . Now being seen post [...] help with use of Cymbalta. Was at [facility] and wanting to request transfer of [facility] records to oncology clinic there. ECOG [...] Device fluticasone propionate (FLONASE) 50 mcg/actuation Nasl Comstock, Suspension Inhalational Spacing Device (AEROCHAMBER MV) Misc [...] Gran% 0.2 % Lymph Percent 23.4 % [place] Percent 5.7 % Eos Percent 2.1 % Baso Percent 0.2 % Neut # 5.6 1.6 - 6.1 x10(3)/mcL IMMGRAN# 0.0 0.0 - 0.1 x10(3)/mcL Lymph # 1.9 1.2 - 3.9 x10(3)/mcL [place] # 0.5 0.3 - 0.9 x10(3)/mcL Eos# [...] G43.719-Chronic migraine without aura, intractable, without status [id number]. COMPARISON: Multiple priors with the latest MRI [...] Oliva MD Performing Provider Shaylee Roque???LOUIE Restrepo PHOTO EQUIPMENT TECHNICIAN Viv Martinez RN Siebel Consultant Madelyn Sidhu RN Endoscopy Nurse Aliya Friedman [...] Prothrombin gene carrier - obtaining records from [facility], meanwhile stay on FDAapproved dosing of [...] Tacho Echavarria MD Hematology and Medical Oncology [facility] [phone] *This note was dictated using voice recognition [...] also performed on this calendar day: d/w Cutting Machine Operator about her care and symptom burden/depression * Rosana Gupta, RN - 02/04/2025 2:20 PM EDT Fax sent to Medical Records at [facility] Request for records from most recent [...] EDT Appointment [place] [address] Batool Celis MD [address] [place] [address] [place] [address] 05/19/2025 2:15 PM EST Office Visit [facility] [address] [facility] [address] [place] [address] Sin Tran MD [address] [place] [address] 06/09/2025 12:45 PM EST Procedure visit [facility] [address] [facility] [address] [place] [address] Samm Ledesma APRN [address] [address] [place] [address] 08/12/2025 10:40 AM EST Appointment [facility] Women's Wellness [facility] [place] [address] Matt Ulrich MD [address] [place] [address] documented as of this encounter Goals Goal Patient Goal Type Associated Problems Recent Progress Patient-Stated? Author Blood Pressure < 140/90 Blood Pressure 121/77(02/04 2:04 PM EDT) No Chetna Cedeno MD Breast [facility] Breast Health On track(2024 11:27 AM EDT) No Jasmin Porter, RAUL Note: Patient acknowledges understanding of new diagnosis, plan of care, available resources and how to contact Nurse Navigator with any future questions or concerns. Breast [facility] Breast Health Not on track(2024 11:27 AM EDT) No Jasmin Porter, RAUL Note: Patient will be compliant with monthly SBE and is aware of who to contact for any unusual or concerning findings. Breast [facility] Breast Health On track(2024 11:27 AM [...] documented as of this encounter Care Teams Mailroom Clerk Relationship Specialty [place] [address] [place] [address] PCP - General 06/21/10 03/08/25 Arlyn Schmidt MD [address] [place] [address] Consulting Physician Internal Medicine-Endocrinology, Diabetes & Metabolism 11/28/20 Tacho Echavarria MD [address] [place] [address] Internal Medicine-Medical Oncology 11/12/23 Matt Ulrich MD 1 [place] [address] Surgery-Surgical Oncology 12/04/23 Eze Brock Pastoral Care 12/13/23 Annette Walker, SUBSTATION TECHNICIAN Senior Manager Mmcoe 05/13/24 Batool Celis MD [address] [facility] [place] [address] Radiation Oncologist Radiology-Radiation Oncology 06/08/24 documented as of this encounter
--- OUTSIDE RECORDS SUMMARY | 2025-02-10 10:30 | XMS_ITS | Encounter Summary ---
Author Organization [place] [address] Care Team Providers Care Futures Trader Name Role Phone Chetna Cedeno MD Primary Care Provider [phone] Arlyn Schmidt MD Unavailable [phone] Tacho Echavarria MD Unavailable [phone] Matt Ulrich MD Unavailable [phone] Eze Brock Unavailable Annette Walker Unavailable [phone] Batool Celis MD Unavailable [phone] Reason for Visit * Reason Comments Follow-up Pump Refill Encounter Details Date Type Department Care Team (Late st Contact Info) Description 02/10/2025 10:30 AM EDT Office Visit [facility] Spine [address] [address] Sin Tran MD [address] [place] [address] Chronic pain syndrome (Primary Dx); Post [...] 5 07/07/2024 [facility] - Occupational Stress Questionnaire Answer Date [...] time in the past 12 m [facility], were you homeless or living in a snf (including now)? No 11/07/2023 [facility] IP Transportation Answer D [...] No edema, warmth, erythema, or fluctuance. The Cloud.com analyzer was used to interrogate the SynchroMed [...] Infusion: no changes as doing well Sin Trna MD Interventional Pain Management [facility] documented in this encounter Plan of Treatment Upcoming Encounters Date Type Department Care Team (Late st Contact Info) Description 04/29/2025 9:15 AM EDT Appointment [place] [address] Batool Celis MD [address] [place] [address] [place] [address] 05/19/2025 2:15 PM EST Office Visit [facility] Spine [facility] [address] [place] [address] Sin Tran MD [address] [place] [address] 06/09/2025 12:45 PM EST Procedure visit [facility] [address] [facility] [address] [place] [address] Samm Ledesma APRN [address] [facility] [address] [place] [address] 08/12/2025 10:40 AM EST Appointment [facility] Women's Wellness [facility] [address] [place] [address] Matt Ulrich MD [address] [place] [address] [place] [address] documented as of this encounter Goals Goal [...] documented as of this encounter Care Teams Futures Trader Relationship Specialty [place] [address] [place] [address] PCP - General 06/21/10 03/08/25 Arlyn Schmidt MD [address] [place], [place] [address] Consulting Physician Internal Medicine-Endocrinology, Diabetes & Metabolism 11/28/20 Tacho Echavarria MD 1 [place], [place] [address] Internal Medicine-Medical Oncology 11/12/23 Matt Ulrich MD 1 [place], [place] [id number] Surgery-Surgical Oncology 12/04/23 Eze Brock Pastoral Care 12/13/23 Annette Walker, ARACELI Automobile Mechanic Radiator 05/13/24 Batool Celis MD 1 [facility] CANCER [place], [place] [address] Radiation Oncologist Radiology-Radiation Oncology 06/08/24 documented as of this encounter
--- OUTSIDE RECORDS SUMMARY | 2025-03-10 13:30 | XMS_ITS | Encounter Summary ---
Author Organization [place] [address] Care Team Providers Care Leather Production Machine Operator Name Role Phone Arlyn Schmidt MD Unavailable [phone] Tacho Echavarria MD Unavailable [phone] Matt Ulrich MD Unavailable [phone] Eze Brock Unavailable Annette Walker WEED CONTROLLER Unavailable [phone] Batool Celis MD Unavailable [phone] Ayush Marrero MD Primary Care Provider [phone] Reason for Visit * In Office Procedure (Routine) - PCP Precert Acquired Specialty Diagnoses / Procedures Referred By Van t Referred To Contact Neurology Diagnoses Chronic migraine without aura, intractable, with status migrainosus Procedures BOTOX COMMUNICATION ORDER LA INJECTION,ONABOTULINUMTOXINA LA CHEMODERVATE FACIAL/TRIGEM/CERV MUSC MIGRAINE Samm Ledesma, CONTRACT SERVICEMAN [address] [address] Phone: tel: fax: Samm Ledesma, CONTRACT SERVICEMAN [address] [place] [address] Phone: tel: fax: Referral ID Status Reason Start Date Expiration Date V isits Requested Visits Authorized [id number] PCP Precert Acquired 03/10/2025 03/10/2026 1 4 Encounter Details Date Type Department Care Team (Late st Contact Info) Description 03/10/2025 1:30 PM EDT Procedure visit [facility] [address] [place] [address] Krissy Rhodes, CONTRACT SERVICEMAN [address] [place] [address] Chronic migraine without aura, intractable, [...] has e electric, gas, oil, or water [employer] threatened to shut off services in your [...] PHQ-2 Total Score 5 07/07/2024 [facility] of Occupat ional Health - [...] time in the past 12 m [facility], were you homeless or living in a longterm (including now)? No 11/07/2023 [facility] IP Transportation Answer D ate Recorded In [...] this encounter Progress Notes * Krissy Rhodes, CONTRACT SERVICEMAN - 03/10/2025 1:30 PM EDT [facility] Neurology Neurology Outpatient Progress Note Botulinum [...] Botox provided by: sample Botox Lot number: [id number] EXP 06/2026 [facility] # [id number] Saline Lot number: [id number] EXP 06/2026 IMPRESSION: Repeat botox injection. Will [...] EDT Appointment [facility] [place] [id number] Batool Celis MD [address] [place] [address] CANCER CARE [place], [place] [id number] 05/19/2025 2:15 PM EST Office Visit [facility] [address] [facility] [address] [place] [address] Sin Tran MD [address] [place] [address] 06/09/2025 12:45 PM EST Procedure visit [facility] [address] [place] [address] Samm Ledesma, CONTRACT SERVICEMAN [address] [facility] [place] [address] 08/12/2025 10:40 AM EST Appointment [facility] Women's Wellness [facility] [place] [id number] Matt Ulrich MD [address] [place] [address] [address] [place] [address] documented as of this encounter Goals Goal [...] documented as of this encounter Care Teams Leather Production Machine Operator Relationship Specialty Start Date End Date Ayush Marrero MD [address] [place] [address] PCP - General Family Medicine 03/09/25 Arlyn Schmidt MD [address] [place] [address] Consulting Physician Internal Medicine-Endocrinology, Diabetes & Metabolism 11/28/20 Tacho Echavarria MD 1 [place] [address] Internal Medicine-Medical Oncology 11/12/23 Matt Ulrich MD 1 [place] [address] Surgery-Surgical Oncology 12/04/23 Eze Brock Pastoral Care 12/13/23 Annette Walker, WEED CONTROLLER Soft Top Installer 05/13/24 Batool Celis MD 1 [facility] [place] [address] Radiation Oncologist Radiology-Radiation Oncology 06/08/24 documented as of this encounter
--- OUTSIDE RECORDS SUMMARY | 2025-03-11 09:39 | XMS_ITS | Encounter Summary ---
Author Organization [place] [address] Care Team Providers Care Retarder Operator Name Role Phone Chetna Cedeno MD Primary Care Provider [phone] Arlyn Schmidt MD Unavailable [phone] Tacho Echavarria MD Unavailable [phone] Matt Ulrich MD Unavailable [phone] Eze Brock Unavailable Annette Walker Unavailable [phone] Batool Celis MD Unavailable [phone] Reason for Visit * Reason Onset Date Comments Symptom Call 01/15/2025 shakiness, light headed, cold chills, and breaking out in sweats Encounter Details Date Type Department Care Team (Late st Contact Info) Description 01/15/2025 Telephone [facility] Medical Oncology [place], [place] [id number] Tacho Echavarria MD [address] [place] [address] [id number] Symptom Call (shakiness, light headed, cold chills, [...] or pharmacy? Never 11/07/2023 [facility] Utilities Answer Date Recorded In [...] Total Score 5 07/07/2024 [facility] of Occupat ional Health - Occupational Stress [...] in a half-way (including now)? No 11/07/2023 [facility] IP Transportation Answer D ate [...] be seen. Patient scheduled for 1:30 with DIRECTOR FINANCIAL SYSTEMS and 1:15 for labs. * Telephone Encounter [...] no What Location is the Patient seen at:[facility] Preferred call back number:[phone] Explained to the caller, if this is a medical emergency please call 911 or go to the nearest emergency room. documented in this encounter Plan of Treatment Upcoming Encounters Date Type Department Care Team (Late st Contact Info) Description 04/29/2025 9:15 AM EDT Appointment [facility] [place] [phone] Batool Celis MD [address] [place] [address] [facility] [place] [id number] 05/19/2025 2:15 PM EST Office Visit [facility] [address] [facility] [facility] [address] [address] [place] [address] Sin Tran MD [address] [place] [address] 06/09/2025 12:45 PM EST Procedure visit [facility] [address] [place] [address] Samm Ledesma APRN [address] [place] [address] 08/12/2025 10:40 AM EST Appointment [facility] Women's Wellness [facility] [place] [address] Matt Ulrich MD [address] [place] [address] [address] [place] [address] documented as of this encounter [...] - 145 mmol/L 01/15/2025 2:05 PM EDT [facility] Potassium 4.0 3.5 - 5.0 mmol/L 01/15/2025 2:05 PM EDT [facility] Chloride 107 98 - 107 mmol/L 01/15/2025 2:05 PM EDT [facility] Total CO2 25 22 - 29 mmol/L 01/15/2025 2:05 PM EDT [facility] Anion Gap 8 7 - 16 mmol/L 01/15/2025 2:05 PM EDT [facility] Calcium 9.3 8.6 - 10.4 mg/dL 01/15/2025 2:05 PM EDT [facility] Glucose Lvl 88 70 - 99 mg/dL 01/15/2025 2:05 PM EDT [facility] BUN 13 6 - 20 mg/dL 01/15/2025 2:05 PM EDT [facility] Creatinine 0.85 0.51 - 1.30 mg/dL 01/15/2025 2:05 PM EDT [facility] Albumin 4.0 3.5 - 5.2 gm/dL 01/15/2025 2:05 PM EDT [facility] Total Protein 6.7 6.4 - 8.3 gm/dL 01/15/2025 2:05 PM EDT [facility] Bili Total 0.3 0.2 - 1.3 mg/dL 01/15/2025 2:05 PM EDT [facility] ALT 8 <=41 U/L 01/15/2025 2:05 PM EDT [facility] AST 14 <=40 U/L 01/15/2025 2:05 PM EDT [facility] Alk Phos 124(H) 36 - 123 U/L 01/15/2025 2:05 PM EDT [facility] eGFR (CKD-EPIcr 2020) 79 >=60 mL/min/1.7 3 m2 01/15/2025 2:05 PM EDT [facility] Comment:Estimated GFR was ca lculated using the CKD-EPIcr (2020) equation refit without race. The equation is recommended by the National Kidney Foundation - [place] [employer] of Nephrology Task Force. Blood VENOUS BLOOD / Unknown Venipuncture / Unknown 01/15/2025 1:41 PM EDT 01/15/2025 1:44 PM EDT us Heydi Sorensen DIRECTOR FINANCIAL SYSTEMS CHEMISTRY ORDERABLES Final Res ult [place] [phone] * (ABNORMAL) CBC WITH DIFF (01/15/2025 1:41 PM EDT) WBC 4.5 3.7 - 10.3 x10(3)/mc L 01/15/2025 1:49 PM EDT [facility] RBC 3.40(L) 3.90 - 5.20 x10(6)/mc L 01/15/2025 1:49 PM EDT [facility] Hgb 10.3(L) 11.2 - 15.7 g/dL 01/15/2025 1:49 PM EDT [facility] Hct 31.7(L) 34.0 - 45.0 % 01/15/2025 1:49 PM EDT [facility] MCV 93.2 80.0 - 100.0 fL 01/15/2025 1:49 PM EDT [facility] MCH 30.3 26.0 - 34.0 pg 01/15/2025 1:49 PM EDT [facility] MCHC 32.5 30.7 - 35.5 g/dL 01/15/2025 1:49 PM EDT [facility] RDW 14.7 <=14.9 % 01/15/2025 1:49 PM EDT [facility] Platelet 165 155 - 369 x10(3)/mc L 01/15/2025 1:49 PM EDT [facility] MPV 8.4(L) 8.8 - 12.5 fL 01/15/2025 1:49 PM EDT [facility] Neut # Prelim 2.9 1.6 - 6.1 x10(3)/mc L 01/15/2025 1:49 PM EDT [facility] Comment:Preliminary automate d absolute neutrophil count. Value may change if manual differential is indicated. Neut Percent 64.2 % 01/15/2025 1:49 PM EDT [facility] Comment:Neutrophils equals s egs plus bands Imm Gran% 0.2 % 01/15/2025 1:49 PM EDT [facility] Comment:Automated count of m etamyelocytes, myelocytes and promyelocytes. Lymph Percent 28.3 % 01/15/2025 1:49 PM EDT [facility] [place] Percent 5.3 % 01/15/2025 1:49 PM EDT [facility] Eos Percent 1.3 % 01/15/2025 1:49 PM EDT [facility] Baso Percent 0.7 % 01/15/2025 1:49 PM EDT [facility] Neut # 2.9 1.6 - 6.1 x10(3)/mc L 01/15/2025 1:49 PM EDT [facility] Comment:Neutrophils equals s egs plus bands IMMGRAN# 0.0 0.0 - 0.1 x10(3)/mc L 01/15/2025 1:49 PM EDT [facility] Comment:Automated count of m etamyelocytes, myelocytes and promyelocytes. An absolute IG <0.1 is reported as 0.0. Lymph # 1.3 1.2 - 3.9 x10(3)/mc L 01/15/2025 1:49 PM EDT [facility] Concordia # 0.2(L) 0.3 - 0.9 x10(3)/mc L 01/15/2025 1:49 PM EDT [facility] Eos# 0.1 0.0 - 0.5 x10(3)/mc L 01/15/2025 1:49 PM EDT [facility] Baso # 0.0 0.0 - 0.1 x10(3)/mc L 01/15/2025 1:49 PM EDT [facility] Blood VENOUS BLOOD / Unknown Venipuncture / Unknown 01/15/2025 1:41 PM EDT 01/15/2025 1:44 PM EDT us Heydi Sorensen DIRECTOR FINANCIAL SYSTEMS HEMATOLOGY ORDERABLES Final Re sult [facility] [address] [place] [address] documented in this encounter Visit Diagnoses Diagnosis Invasive ductal carcinoma of breast, female, right (HCC)- Primary Cold sweat Lightheaded Dizziness and giddiness Shakiness Abnormal involuntary movements documented in this encounter Additional Health Concerns Assessment Noted Time PHQ-9 Depression Total Score: 17 024 8:39 AM EST PHQ-2 Depression Total Score: 5 07/07/20 24 8:39 AM EST documented as of this encounter Care Teams Retarder Operator Relationship Specialty [place] [address] [place] [id number] PCP - General 06/21/10 03/08/25 Arlyn Schmidt MD [address] [place] [address] Consulting Physician Internal Medicine-Endocrinology, Diabetes & Metabolism 11/28/20 Tacho Echavarria MD 1 [place], [place] [phone] Internal Medicine-Medical Oncology 11/12/23 Matt Ulrich MD 1 [place] [address] Surgery-Surgical Oncology 12/04/23 Eze Brock Pastoral Care 12/13/23 Annette Walker, ARACELI Proof Machine Operator 05/13/24 Batool Celis MD 1 [facility] [place] [address] Radiation Oncologist Radiology-Radiation Oncology 06/08/24 documented as of this encounter
--- OUTSIDE RECORDS SUMMARY | 2025-03-11 09:39 | XMS_ITS | Encounter Summary ---
Author Organization [place] [address] Care Team Providers Care Setter Off Name Role Phone Chetna Cedeno MD Primary Care Provider [phone] Arlyn Schmidt MD Unavailable [phone] Tacho Echavarria MD Unavailable [phone] Matt Ulrich MD Unavailable [phone] Eze Brock Unavailable Annette Walker Unavailable [phone] Batool Celis MD Unavailable [phone] Encounter Details Date Type Department Care Team (Late st Contact Info) Description 01/13/2025 Plan of Care Documentation [facility] Physical Therapy [address] [place] [address] Social History Tobacco Use Types [...] in a fpc (including now)? No 11/07/2023 [facility] IP Transportation Answer [...] to walk with no AD by then, [place] (but pt states that she was told this may have been a misdiagnosis), currently taking chemo pill, R mastectomy Jun 2024, radiation ended 09/25/24, chronic back issues with sciatica Physician: Jericho ESCOBAR Follow Up: 11/11/24 Evaluation Date: 10/30/24 Reassessment Due: 12/26/24 Primary Insurance: MEDICAID /[facility] [id number] [facility] Secondary Insurance: n/a Insurance Authorization: AMB REFERRAL TO PHYSICAL THERAPY Authorized (10/08/2024-01/28/2025) Visits Requested Visits Authorized Visits Completed Visits Scheduled -- Details Referral ID: [id number] Authorization Status Reason: Received Carrier Authorization Authorization Comments: -- Referred To: Shaunna Workman PT at [facility] Referred By: Tacho Echavarria MD at [facility] CTR [facility], [facility]: [facility] Referral Reasons: Specialty Services [...] other week Needs Assistance: No Understood: Yes metal fabricating supervisor // bars with unilat UE support [] high marches x10B [] hamstring curls x10B metal fabricating supervisor // bars with B UE support [] [...] deficits. pt verbalized understanding of this again. metal fabricating supervisor // bars with unilat UE support [] [...] arm swing during gait [] NMR education metal fabricating supervisor // bars with no support with gait [...] up about 2 days ago. Access Code: [email or web address] URL: [email or web address] Date: 11/11/2024 Prepared by: Romana Bowman Exercises [...] will be Independent with HEP to improve usp health and reduce risk for injury. indbut [...] increase from 727 feet with RW to 8187-4104 feet with LRAD to improve gait elisha [...] away. Treatments to consist of Therapeutic exercise 53090, Neuromuscular re-education 07747, Manual soft tissue and/or joint mobilization 51620, Patient education, Therapeutic activity 28597, and Gait training 20512. Electronically signed by: Signed: Shaunna Workman PT Date: 01/13/2025 documented in this encounter Plan of Treatment Upcoming Encounters Date Type Department Care Team (Late st Contact Info) Description 04/29/2025 9:15 AM EDT Appointment [facility] [address] Batool Celis MD [address] [place] [address] [place] [address] 05/19/2025 2:15 PM EST Office Visit [facility] [address] [place] [address] Sin Tran MD [address] [place] [address] 06/09/2025 12:45 PM EST Procedure visit [facility] [address] [place] [address] Samm Ledesma, RN FIRST ASSIST [address] [place] [address] 08/12/2025 10:40 AM EST Appointment [facility] Women's Wellness [facility] [place] [address] Matt Ulrich MD [address] [place] [address] [address] [place] [address] documented as of this encounter [...] documented as of this encounter Care Teams Setter Off Relationship Specialty [place] [address] [address] [place] [address] PCP - General 06/21/10 03/08/25 Arlyn Schmidt MD [address] [place], [place] [phone] Consulting Physician Internal Medicine-Endocrinology, Diabetes & Metabolism 11/28/20 Tacho Echavarria MD 1 [place], [place] [phone] Internal Medicine-Medical Oncology 11/12/23 Matt Ulrich MD 1 [place] [address] Surgery-Surgical Oncology 12/04/23 Eze Brock Pastoral Care 12/13/23 Annette Walker, ARACELI Transmission Calibration Engineer 05/13/24 Batool Celis MD 1 [facility] [place] [address] Radiation Oncologist Radiology-Radiation Oncology 06/08/24 documented as of this encounter
--- OUTSIDE RECORDS SUMMARY | 2025-03-11 09:39 | XMS_ITS ---
Author Organization [facility] VEL[facility]Jude [facility] Address [address] [place], [place] [address] Phone Care Team Providers Care Ladies' Hat Trimmer Name Role Phone Arlyn Schmidt MD Unavailable [phone] Tacho Echavarria MD Unavailable [phone] Matt Ulrich MD Unavailable [phone] Eze Brock Unavailable Annette Walker Unavailable [phone] Batool Celis MD Unavailable [phone] Ayush Marrero MD Primary Care Provider [phone] Active Problems * This document contains information received from the source organization and may not represent a complete record from that organization. Patient Care Coordination No te Formatting of this note migh t be different from the original. [facility] - Sin Tran MD Controlled [...] Functional capacity documented (EVERY VISIT)01/03/2022 [facility] [address] [place] [phone] [facility] [phone] AIS POA: 02/10/2025 josh as expected #[id number] Josh 08-05-2018 adm Josh 08-14-18 adm UDS 08-08-18 adm Care gap audit completed by Medina White RN on 01/01/2022. 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 Care Team Medical Oncologist Dr. Tacho Echavarria Surgeon Dr. Matt Ulrich Radiation Oncologist Dr. Batool Celis Primary Care Physician Chetna Cedeno MD Cancer Diagnosis Information Diagnosis date 10/29/23 Diagnosis and Staging information Invasive Ductal Carcinoma, right breast Clinical Stage IIIB (cT3, cN3a(f), M0, G3, ER+, OR+, Her2-) Pathologic Stage y(pT3, pN3a, G3 ER+, OR+, Her2-) Tumor markers Breast: Estrogen Receptor positive (92%) Progesterone Receptor positive (55%) Her-2 negative Background Information/Additional Screening Recommendations Genetics testing Negative ([employer] Hereditary Cancer 67-gene panel) Tobacco use Nonsmoker. [...] up to GI tolerance for2 yr planned (Phelps-E regimen) Radiation therapy External beam radiotherapy to a total dose of 60 Gy; 50 Gy to right chest wall and regional lymph nodes including internal mammary + 10 Gy boost to the undissected nodes. Delivered in a total of 30 fractions Endocrine Therapy Arimidex started 10/08/24 + Verzenio. Changed to Aromasin give [facility] Oncology Timeline Oncology History Invasive ductal [...] tolerance for 2 yr planned (Phelps-E regimen) 10/2024 - changed to Aromasin d/t [...] Stage ypT3, ypN3a, G3, ER+, OR+, HER2- Right breast cancer with T3 tumor, [...] General Health Continue follow-up with PCP and SENIOR APPLICATION SOFTWARE ENGINEER as directed Recommendations Self-care plan: What you [...] your body,see your regular doctor, physician certified first assistant, or nurse practitioner. If what you [...] excess. I doubt the patient has underlying Forney's disease. We will proceed with the work-up [...]
--- OUTSIDE RECORDS SUMMARY | 2025-03-11 09:39 | XMS_ITS | Encounter Summary ---
Author Organization [place] [address] Care Team Providers Care Revenue Field Auditor Name Role Phone Chetna Cedeno MD Primary Care Provider [phone] Arlyn Schmidt MD Unavailable [phone] Tacho Echavarria MD Unavailable [phone] Matt Ulrich MD Unavailable [phone] Eze Brock Unavailable Annette Walker Unavailable [phone] Batool Celis MD Unavailable [phone] Ayush Marrero MD Primary Care Provider [phone] Reason for Referral * In Office Procedure (Routine) - PCP Precert Acquired Specialty Diagnoses / Procedures Referred By Van t Referred To Contact Neurology Diagnoses Chronic migraine without aura, intractable, with status migrainosus Procedures BOTOX COMMUNICATION ORDER NC INJECTION,ONABOTULINUMTOXINA NC CHEMODERVATE FACIAL/TRIGEM/CERV MUSC MIGRAINE Samm Ledesma, AUTOMATIC CIGAR WRAPPER TENDER [address] [place] [address] Phone: tel: fax: Samm Ledesma, AUTOMATIC CIGAR WRAPPER TENDER [address] [place] [address] Phone: tel: fax: Referral ID Status Reason Start Date Expiration Date V isits Requested Visits Authorized [id number] PCP Precert Acquired 03/10/2025 03/10/2026 1 4 Reason for Visit * Reason Onset Date Comments Botox Injection 01/01/2025 ~03/02/2025 Encounter Details Date Type Department Care Team (Late st Contact Info) Description 01/01/2025 Patient Outreach [facility] [address] [place] [address] Samm Ledesma APRN [address] [place] [address] Botox Injection (~03/02/2025 ) Social History Tobacco [...] from your doctor or pharmacy? Never 11/07/2023 [facility] Utilities Answer Date Recorded In the past 12 months has e electric, gas, oil, or water [employer] threatened to shut off services in your [...] Score 5 07/07/2024 [facility] of Occupat ional [facility] - Occupational Stress Questionnaire Answer Date [...] now)? No 11/07/2023 [facility] IP Transportation Answer [...] encounter Miscellaneous Notes * Addendum Note - Saniya Mcintosh RMA - 03/09/2025 9:10 AM EDTAddended by: SANIYA MCINTOSH on: 03/09/2025 09:10 AM Modules accepted: Orders * Telephone Encounter - Saniya Mcintosh RMA - 03/09/2025 9:08 AM EDT Patient only has [employer] documented as insurance. No longer has [place]. Needs new PA. Will supply sample for appt tomorrow. * Telephone Encounter - Maria Elena Harvey - 01/12/2025 1:09 PM EDT Pt suzy'ed Botox for 03/02/25 * Telephone Encounter - Brittany Narvaez MA - 01/01/2025 11:30 AM EDT ~03/02/2025 ANNIE APPROVED: [id number] AUTH #: ASO ASBM Preferred [id number] DATES OF APPROVAL: 08/12/2024-08/11/2025 UNITS APPROVED: 620 units/ 4 visits documented in this encounter Plan of Treatment Upcoming Encounters Date Type Department Care Team (Late st Contact Info) Description 04/29/2025 9:15 AM EDT Appointment [facility] [place] [place] [address] Batool Celis MD [address] [place] [address] CANCER CARE [place] [id number] 05/19/2025 2:15 PM EST Office Visit [facility] [place] [address] [facility] [place] [address] [place] [address] [place] [address] 06/09/2025 12:45 PM EST Procedure visit [facility] [address] [facility] [address] [place] [id number] Samm Ledesma, AUTOMATIC CIGAR WRAPPER TENDER [address] [place] [address] 08/12/2025 10:40 AM EST Appointment [facility] [place] [facility] [place] [address] Matt Ulrich MD [address] [place] [address] [address] [place] [address] documented as of this encounter Goals Goal Patient Goal Type Associated Problems Recent Progress Patient-Stated? Author Blood Pressure < 140/90 Blood Pressure 121/77(02/04 2:04 PM EDT) No Chetna Cedeno MD Breast [facility] Breast Health On track(2024 11:27 AM EDT) No Jasmin Porter, RAUL Note: Patient acknowledges understanding of new diagnosis, plan of care, available resources and how to contact Nurse Navigator with any future questions or concerns. Breast [facility] Breast Health Not on track(2024 11:27 AM EDT) No Jasmin Porter, RAUL Note: Patient will be compliant with monthly SBE and is aware of who to contact for any unusual or concerning findings. Breast [facility] Breast Health On track(2024 11:27 AM [...] status migrainosus- Primary documented in this encounter Orders Nursing Count Last Ordered Date First Orde red Date BOTOX COMMUNICATION ORDER 1 03/09/2025 documented in this encounter Additional Health Concerns Assessment Noted Time PHQ-9 Depression Total Score: 17 024 8:39 AM EST PHQ-2 Depression Total Score: 5 07/07/20 8:39 AM EST documented as of this encounter Care Teams Revenue Field Auditor Relationship Specialty [place] [address] [place] [address] PCP - General 06/21/10 03/08/25 Ayush Marrero MD [address] [place] [address] PCP - General Family Medicine 03/09/25 Arlyn Schmidt MD [address] [place] [address] Consulting Physician Internal Medicine-Endocrinology, Diabetes & Metabolism 11/28/20 Tacho Echavarria MD 1 [place], [place] [id number] Internal Medicine-Medical Oncology 11/12/23 Matt Ulrich MD 1 [place] [address] Surgery-Surgical Oncology 12/04/23 Eze Brock Pastoral Care 12/13/23 Annette Walker, ARACELI Propeller Inspector 05/13/24 Batool Celis MD 1 [facility] [place] [address] Radiation Oncologist Radiology-Radiation Oncology 06/08/24 documented as of this encounter
--- OUTSIDE RECORDS SUMMARY | 2025-03-11 09:39 | XMS_ITS | Encounter Summary ---
Author [place] [address] Care Team Providers Care Venetian Blind Washer Name Role Phone Chetna Cedeno MD Primary Care Provider [phone] Arlyn Schmidt MD Unavailable [phone] Tacho Echavarria MD Unavailable [phone] Matt Ulrich MD Unavailable [phone] Eze Brock Unavailable Annette Walker Unavailable [phone] Batool Celis MD Unavailable [phone] Reason for Visit * Reason Comments Pharmacy Migraine Medication Management Ubrelvy Encounter Details Date Type Department Care Team (Latest Contact Info) Description 01/15/2025 Specialty Pharmacy [facility] [address] [place] [address] Annamarie Mark CPhT Pharmacy Migraine [...] th e electric, gas, oil, or water [employer] threatened to shut off services in your [...] Total Score 5 07/07/2024 [facility] [place] of Occupat ional Health - Occupational Stress [...] in a correction (including now)? No 11/07/2023 [facility] IP Transportation Answer [...] Cole requested a refill of Ubrelvy via Lot[employer]. Zounds message was sent in response with appropriate questionnaire. Will f/u in 2 business days. documented in this encounter Plan of Treatment Upcoming Encounters Date Type Department Care Team (Late st Contact Info) Description 04/29/2025 9:15 AM EDT Appointment [facility] [place] [id number] Batool Celis MD [address] [place] [address] CANCER CARE [place] [id number] 05/19/2025 2:15 PM EST Office Visit [facility] [address] [place] [address] Sin Tran MD [address] [place] [address] 06/09/2025 12:45 PM EST Procedure visit [facility] [address] [facility] [address] [place] [address] Samm Ledesma APRN [address] [facility] [address] [place] [address] 08/12/2025 10:40 AM EST Appointment [facility] Women's Wellness [facility] [address] [place] [address] Matt Ulrich MD [address] [facility] [place] [address] documented as of this encounter Goals Goal [...] documented as of this encounter Care Teams Venetian Blind Washer Relationship Specialty [place] [address] [place] [address] PCP - General 06/21/10 03/08/25 Arlyn Schmidt MD [address] [place] [address] Consulting Physician Internal Medicine-Endocrinology, Diabetes & Metabolism 11/28/20 Tacho Echavarria MD 1 [place] [address] Internal Medicine-Medical Oncology 11/12/23 Matt Ulrich MD 1 [place] [address] Surgery-Surgical Oncology 12/04/23 Eze Brock Pastoral Care 12/13/23 Annette Walker, [facility] Bench Jeweler 05/13/24 Batool Celis MD 1 [facility] [place] [address] Radiation Oncologist Radiology-Radiation Oncology 06/08/24 documented as of this encounter
--- OUTSIDE RECORDS SUMMARY | 2025-03-11 09:39 | XMS_ITS | Encounter Summary ---
Author Organization [place] [address] Care Team Providers Care Power Ballast Machine Operator Name Role Phone Chetna Cedeno MD Primary Care Provider [phone] Arlyn Schmidt MD Unavailable [phone] Tacho Echavarria MD Unavailable [phone] Matt Ulrich MD Unavailable [phone] Eze Brock Unavailable Annette Walker Unavailable [phone] Batool Celis MD Unavailable [phone] Reason for Visit * Reason Comments Medication Refill Encounter Details Date Type Department Care Team (Late st Contact Info) Description 01/14/2025 Refill [facility] Medical Oncology [place], [place] [id number] Tacho Echavarria MD [address] [place] [address] [phone] Medication Refill Social History Tobacco Use Types [...] a nursing home (including now)? No 11/07/2023 [facility] - [...] po daily and stat referral to Psych . Escript for cymbalta sent to pt's pharmacy. documented in this encounter Plan of Treatment Upcoming Encounters Date Type Department Care Team (Late st Contact Info) Description 04/29/2025 9:15 AM EDT Appointment [facility] [place] [address] Batool Celis MD [address] [place] [address] [place] [address] 05/19/2025 2:15 PM EST Office Visit [address] [address] Sin Tran MD [address] [place] [address] [place] [address] 06/09/2025 12:45 PM EST Procedure visit [facility] [address] [facility] [address] [place] [address] Baltazar Samm DillonMAGANN [address] [facility] [address] [place] [address] 08/12/2025 10:40 AM EST Appointment [facility] Women's Wellness [place] [facility] [place] [address] Matt Ulrich MD [address] [place] [address] [address] [place] [address] documented as of this encounter Goals Goal Patient Goal Type Associated Problems Recent Progress Patient-Stated? Author Blood Pressure < 140/90 Blood Pressure 121/77(02/04 2:04 PM EDT) No Chetna Cedeno MD Breast [facility] Breast Health On track(2024 11:27 AM EDT) No Jasmin Porter, RAUL Note: Patient acknowledges understanding of new diagnosis, plan of care, available resources and how to contact Nurse Navigator with any future questions or concerns. Breast [facility] Breast Health Not on track(2024 11:27 [...] documented as of this encounter Care Teams Power Ballast Machine Operator Relationship Specialty [place] [address] [place] [address] PCP - General 06/21/10 03/08/25 Arlyn Schmidt MD [address] [place], [place] [id number] Consulting Physician Internal Medicine-Endocrinology, Diabetes & Metabolism 11/28/20 Tacho Echavarria MD 1 [place] [address] Internal Medicine-Medical Oncology 11/12/23 Matt Ulrich MD 1 [place] [address] Surgery-Surgical Oncology 12/04/23 Eze Brock Pastoral Care 12/13/23 Annette Walker MSW Life Skills Coach 05/13/24 Batool Celis MD 1 [facility] [address] Radiation Oncologist Radiology-Radiation Oncology 06/08/24 documented as of this encounter
--- OUTSIDE RECORDS SUMMARY | 2025-03-11 09:39 | XMS_ITS | Encounter Summary ---
Author Organization [place] [address] Care Team Providers Care Astronaut Mission Specialist Name Role Phone Chetna Cedeno MD Primary Care Provider [phone] Arlyn Schmidt MD Unavailable [phone] Tacho Echavarria MD Unavailable [phone] Matt Ulrich MD Unavailable [phone] Eze Brock Unavailable Cheryl Nair RN Unavailable [phone] Annette Walker SONOGRAPHY TECHNICIAN Unavailable [phone] Batool Celis MD Unavailable [phone] Ayush Marrero MD Primary Care Provider [phone] Encounter Details Date Type Department Care Team (Late st Contact Info) Description 09/11/2024 Lab Requisition [facility] [place] [address] Beata Kebede MD [address] [place] [address] Social History Tobacco Use Types Packs/Day Years [...] in a mcc (including now)? No 11/07/2023 [facility] [...] EDT Appointment [facility] [place] [id number] Batool Celis MD [address] [place] [address] [place] [address] 05/19/2025 2:15 PM EST Office Visit [facility] [address] [place] [address] [address] [place] [address] Sin Tran MD [address] [place] [address] 06/09/2025 12:45 PM EST Procedure visit [facility] [address] [facility] [address] [place], [place] [phone] Samm Ledesma APRN [address] [facility] [address] [place] [address] 08/12/2025 10:40 AM EST Appointment [facility] Women's Wellness [facility] [place] [address] Matt Ulrich MD [address] [place] [address] 254 [place] [address] documented as of this encounter Goals Goal Patient Goal Type Associated Problems Recent Progress Patient-Stated? Author Blood Pressure < 140/90 Blood Pressure 121/77(02/04 2:04 PM EDT) No Chetna Cedeno MD Breast [facility] Breast Health On track(2024 11:27 AM EDT) No Jasmin Porter, RAUL Note: Patient acknowledges understanding of new diagnosis, plan of care, available resources and how to contact Nurse Navigator with any future questions or concerns. Breast [facility] Breast [facility] Not on track(2024 11:27 AM EDT) [...] EST) CASE REPORT Surgical Pathology Report Case: [id number] Authorizing Provider: Beata Kebede MD Collected: 09/11/2024 1313 Ordering Location: [facility] Received: 09/11/2024 1313 Pathologist: Diane Ellis MD Specimen: Breast, Request for cases [id number], [id number] slides to [facility]. 09/15/2024 12:14 PM EDT [facility] FINAL DIAGNOSIS Results will be scanned in this case as an addendum. 09/15/2024 12:14 PM EDT [facility] at 1338 EST EMBEDDED IMAGES 09/15/2024 12:14 PM EDT [facility] [employer] [facility] [facility] ADDENDUM Refer to Scanned [facility] Report for [id number] & [id number]. 09/15/2024 12:14 PM EDT [facility] Addendum electronically signed by Diane Ellis MD on 09/15/2024 at 1214 EDT Tissue BREAST STRUCTURE / Unknown 09/11/2024 1:13 PM EST 09/11/2024 1:13 PM EST us Beata Kebede MD PATHOLOGY ORDERABLES Edited R esult - Final [facility] 1 [place] [id number] documented in this encounter Visit Diagnoses Not on filedocumented in this encounter Additional Health Concerns Infection Onset Date Last Indicated Resolved Time COVID-19 09/04/2024 09/04/2024 09/24/2024 10:1 2 PM EDT Assessment Noted Time PHQ-9 Depression Total Score: 17 024 8:39 AM EST PHQ-2 Depression Total Score: 5 07/07/20 24 8:39 AM EST documented as of this encounter Care Teams Astronaut Mission Specialist Relationship Specialty [place] [address] [place] [address] PCP - General 06/21/10 03/08/25 Ayush Marrero MD [address] [place] [address] PCP - General Family Medicine 03/09/25 Arlyn Schmidt MD [address] [place] [address] Consulting Physician Internal Medicine-Endocrinology , Diabetes & Metabolism 11/28/20 Tacho Echavarria MD 1 [place] [address] Internal Medicine-Medical Oncology 11/12/23 Matt Ulrich MD 1 [facility] [place] [address] Surgery-Surgical Oncology 12/04/23 Eze Brock Pastoral Care 12/13/23 Cheryl Nair, RN Oncology Nurse Navigator 03/25/2412/13 Annette Walker MSW Specimen Boss 05/13/24 Batool Celis MD 1 [facility] [place] [address] Radiation Oncologist Radiology-Radiation Oncology 06/08/24 documented as of this encounter
--- OUTSIDE RECORDS SUMMARY | 2025-03-11 09:39 | XMS_ITS | Encounter Summary ---
Author Organization [place] [address] Care Team Providers Care Winch Operator Name Role Phone Chetna Cedeno MD Primary Care Provider [phone] Arlyn Schmidt MD Unavailable [phone] Tacho Echavarria MD Unavailable [phone] Matt Ulrich MD Unavailable [phone] Eze Brock Unavailable Annette Walker Unavailable [phone] Batool Celis MD Unavailable [phone] Encounter Details Date Type Department Care Team (Late st Contact Info) Description 01/15/2025 Plan of Care Documentation [facility] Physical Therapy [address] [place] [address] Social History Tobacco Use Types [...] in a snf (including now)? No 11/07/2023 [facility] IP Transportation [...] EDT Appointment [facility] [address] Batool Celis MD [address] [place] [address] [place] [address] 05/19/2025 2:15 PM EST Office Visit [facility] [address] [facility] [address] [place] [address] Sin Tran MD [address] [place] [address] 06/09/2025 12:45 PM EST Procedure visit [facility] [address] [place], [place] [phone] Samm Ledesma APRN [address] [facility] [address] [place], [place] [address] 08/12/2025 10:40 AM EST Appointment [facility] Women's Wellness [facility] [place] [phone] Matt Ulrich MD [address] [place] [address] 254 [place] [address] documented as of this encounter Goals Goal [...] documented as of this encounter Care Teams Winch Operator Relationship Specialty [place] [address] [place] [address] PCP - General 06/21/10 03/08/25 Arlyn Schmidt MD [address] [place] [address] Consulting Physician Internal Medicine-Endocrinology, Diabetes & Metabolism 11/28/20 Tacho Echavarria MD 1 [place] [address] Internal Medicine-Medical Oncology 11/12/23 Matt Ulrich MD [address] [place] [address] Surgery-Surgical Oncology 12/04/23 Eze Brock Pastoral Care 12/13/23 Annette Walker MSW Pipelayer 05/13/24 Batool Celis MD [address] [place] [address] [place] [address] Radiation Oncologist Radiology-Radiation Oncology 06/08/24 documented as of this encounter
--- OUTSIDE RECORDS SUMMARY | 2025-03-11 09:39 | XMS_ITS | Encounter Summary ---
Author Organization [place] [address] Care Team Providers Care Business Development Representative Name Role Phone Chetna Cedeno MD Primary Care Provider [phone] Arlyn Schmidt MD Unavailable [phone] Tacho Echavarria MD Unavailable [phone] Matt Ulrich MD Unavailable [phone] Eze Brock Unavailable Annette Walker Unavailable [phone] Batool Celis MD Unavailable [phone] Encounter Details Date Type Department Care Team (Late st Contact Info) Description 01/15/[address] [facility] Physical Therapy [address] [place] [address] Social History Tobacco Use Types [...] your doctor or pharmacy? Never 11/07/2023 [facility] Utilities Answer Date Recorded In the [...] Recorded PHQ-2 Total Score 5 07/07/2024 [facility] of Occupat ional Health - [...] in a alf (including now)? No 11/07/2023 [facility] IP Transportation [...] EDT Appointment [place] [address] Batool Celis MD [address] [place] [address] [place] [address] 05/19/2025 2:15 PM EST Office Visit [facility] 49[address] [facility] [address] [place] [address] Sin Tran MD [address] [place] [address] 06/09/2025 12:45 PM EST Procedure visit [facility] [address] [facility] [address] [place], [place] [phone] Samm Ledesma APRN [address] [facility] [address] [place], [place] [address] 08/12/2025 10:[address] [facility] Women's Wellness [facility] [place] [phone] Matt Ulrich MD [address] [place] [address] 254 [place] [address] documented as of this encounter Goals Goal [...] documented as of this encounter Care Teams Business Development Representative Relationship Specialty [place] [address] [place] [address] PCP - General 06/21/10 03/08/25 Arlyn Schmidt MD [address] [place] [address] Consulting Physician Internal Medicine-Endocrinology, Diabetes & Metabolism 11/28/20 Tacho Echavarria MD 1 [place] [address] Internal Medicine-Medical Oncology 11/12/23 Matt Ulrich MD [address] [place] [address] Surgery-Surgical Oncology 12/04/23 Eze Brock Pastoral Care 12/13/23 Annette Walker MSW Respiratory Therapy Technician 05/13/24 Batool Celis MD [address] [place] [address] [place] [address] Radiation Oncologist Radiology-Radiation Oncology 06/08/24 documented as of this encounter
--- OUTSIDE RECORDS SUMMARY | 2025-03-11 09:39 | XMS_ITS | Encounter Summary ---
Author Organization [place] [address] Care Team Providers Care Hydrodynamics Teacher Name Role Phone Chetna Cedeno MD Primary Care Provider [phone] Arlyn Schmidt MD Unavailable [phone] Tacho Echavarria MD Unavailable [phone] Matt Ulrich MD Unavailable [phone] Eze Brock Unavailable Annette Walker Unavailable [phone] Batool Celis MD Unavailable [phone] Reason for Visit * Reason Comments Medication Refill Encounter Details Date Type Department Care Team (Late st Contact Info) Description 01/15/2025 Refill [facility] Care Medical Oncology [place], [place] [phone] Tacho Echavarria MD [address] [place] [address] [phone] Medication Refill Social History Tobacco Use Types [...] a skilled nursing (including now)? No 11/07/2023 [facility] IP Transportation Answer D ate [...] Appointment [facility] [place] [address] Batool Celis MD [address] [place] [address] CANCER CARE [place] [phone] 05/19/2025 2:15 PM EST Office Visit [address] [place] [address] Sin Tran MD [address] [place] [address] 06/09/2025 12:45 PM EST Procedure visit [facility] [address] [facility] [address] [place] [address] Samm Ledesma APRN [address] [facility] [address] [place] [address] 08/12/2025 10:40 AM EST Appointment [facility] Women's Wellness [facility] [address] [place] [phone] Matt Ulrich MD [address] [place] [address] [address] [place] [address] documented as of this encounter Goals [...] documented as of this encounter Care Teams Hydrodynamics Teacher Relationship Specialty [place] [address] [place] [address] PCP - General 06/21/10 03/08/25 Arlyn Schmidt MD [address] [place] [address] Consulting Physician Internal Medicine-Endocrinology, Diabetes & Metabolism 11/28/20 Tacoh Echavarria MD 1 [place] [address] Internal Medicine-Medical Oncology 11/12/23 Matt Ulrich MD 1 [place] [address] Surgery-Surgical Oncology 12/04/23 Eze Brock Pastoral Care 12/13/23 Annette Walker, VETERINARIAN EPIDEMIOLOGIST Four Horse Hitch Driver 05/13/24 Batool Celis MD 1 [facility] [address] Radiation Oncologist Radiology-Radiation Oncology 06/08/24 documented as of this encounter
--- OUTSIDE RECORDS SUMMARY | 2025-03-11 09:40 | XMS_ITS | Encounter Summary ---
Author Organization [place] [address] Care Team Providers Care Executive Admin Name Role Phone Chetna Cedeno MD Primary Care Provider [phone] Arlyn Schmidt MD Unavailable [phone] Tacho Echavarira MD Unavailable [phone] Matt Ulrich MD Unavailable [phone] Eze Brock Unavailable Annette Walker Unavailable [phone] Batool Celis MD Unavailable [phone] Reason for Visit * Reason Onset Date Comments Patient Question 01/28/2025 question about test result Encounter Details Date Type Department Care Team (Late st Contact Info) Description 01/28/2025 Telephone Cancer Care Medical Oncology [place], [place] [phone] Tacho Echavarria MD [address] [place] [address] [phone] Patient Question (question about test result ) [...] from your doctor or pharmacy? Never 11/07/2023 [facility] Utilities Answer Date Recorded In the [...] Recorded PHQ-2 Total Score 5 07/07/2024 [facility] of Occupat ional [...] in a mcc (including now)? No 11/07/2023 [facility] IP Transportation Answer D ate [...] Henosn CCMA * Does this person have serious [...] results are in and forwarded to MD. [employer] message sent to patient, no need to move appt up sooner at this time. * Telephone Encounter - Sendy Waddell NA - 01/28/2025 10:43 AM EDT Reason for call: Patient said that she saw on [facility] that she had test results in, said it was something to do withDNA and what medications to take. Said she was unable to read results and was calling to see if anything needed to be done or if she was ok to wait until her appt. Preferred call back number: [phone] documented in this encounter Plan of Treatment Upcoming Encounters Date Type Department Care Team (Late st Contact Info) Description 04/29/2025 9:15 AM EDT Appointment [facility] [place] [address] Batool Celis MD [address] [place] [address] [place] [address] 05/19/2025 2:15 PM EST Office Visit [address] [address] Sin Tran MD [address] [place] [address] 06/09/2025 12:45 PM EST Procedure visit [facility] [address] [facility] [address] [place] [address] Samm Ledesma, SLAGGER [address] [facility] [address] [place], [place] [id number] 08/12/2025 10:40 AM EST Appointment [facility] Women's Wellness [facility] [place] [address] Matt Ulrich MD [address] [place] [address] [address] [place] [address] documented as of this encounter [...] documented as of this encounter Care Teams Executive Admin Relationship Specialty [place] [address] [place] [phone] PCP - General 06/21/10 03/08/25 Arlyn Schmidt MD [address] [place] [address] Consulting Physician Internal Medicine-Endocrinology, Diabetes & Metabolism 11/28/20 Tacho Echavarria MD 1 [place] [address] Internal Medicine-Medical Oncology 11/12/23 Matt Ulrich MD 1 [place], [place] [address] Surgery-Surgical Oncology 12/04/23 Eze Brock Pastoral Care 12/13/23 Annette Walker, RELOCATION MANAGER Insurance Appraiser 05/13/24 Batool Celis MD 1 [facility] [place] [address] Radiation Oncologist Radiology-Radiation Oncology 06/08/24 documented as of this encounter
--- OUTSIDE RECORDS SUMMARY | 2025-03-11 09:40 | XMS_ITS | Clinical Summary ---
Author Organization [facility] Address [address] [place] [address] Phone Care Team Providers Care Swimming Pool Attendant Name Role Phone Chetna Cedeno MD Primary Care Provider [phone] Allergies Active Allergy Reactions Criticality Noted Date [...] EDT - 01/02/2025 7:27 PM EDT Emergency [facility] Emergency Department [address] [place] [address] Dallin Espinoza MD Heat exhaustion, [...] (ABNORMAL) BAMP (Na,K,Cl,CO2,Glu,BUN,Creat,Ca) (01/02/2025 5:13 PM EDT) [facility] BLD UREA NITROGEN 16 8 - 26 mg/dL CHEMISTRY JOSHUA SODIUM 140 135 - 145 mmol/L CHEMISTRY J[facility]UA POTASSIUM 3.2(L) 3.6 - 5.1 mmol/L CHEMISTRY [facility] CHLORIDE 107 98 - 111 mmol/L CHEMISTRY J[facility]UA CO2 20(L) 21 - 31 mmol/L CHEMISTRY J[facility]UA GLUCOSE, RANDOM 89 70 - 99 mg/dL CHEMISTRY [facility] CREATININE 1.06 0.60 - 1.20 mg/dL CHEMISTRY [facility]UA ANION GAP 13 4 - 16 mmol/L CHEMISTRY [facility]UA CALCIUM 9.0 8.5 - 10.4 mg/dL CHEMISTRY J[facility]UA ESTIMATED GFR 61 >59 mL/min/1.7 3 m2 CHEMISTRY JOSHUA Comment: Estimated GFR was calculated using the CKD-EPI cr (2020) equation refit without race. The equation is recommended by the National Kidney Foundation - [place] Society of Nephrology Task Force. Tested at [place] [id number] Whole Blood 01/02/2025 5:13 PM EDT 01/02/2025 5:25 PM EDT Dallin Espinoza MD LAB BLOOD ORDERABLES Final Result [facility] [address] [place] [address] [place] [address] * (ABNORMAL) CBC w/ Diff (01/02/2025 5:13 PM EDT) [facility] WBC 7.1 3.6 - 10.5 THOU/[facility] CHEMISTRY JOSHUA RBC 3.75(L) 3.80 - 5.20 MIL/mcL CHEMISTRY [facility]UA HEMOGLOBIN 11.2(L) 12.0 - 15.2 g/dL CHEMISTRY [facility]UA HEMATOCRIT 33.6(L) 36 - 46 % CHEMISTRY JOSHUA MCV 89.6 82 - 97 fL CHEMISTRY JOSHUA MCH 30.0 27 - 33 pg CHEMISTRY JOSHUA MCHC 33.5 32 - 36 g/dL CHEMISTRY JOSHUA RDW 16.0 12.3 - 17.0 % CHEMISTRY JOSHUA PLATELET 206 140 - 375 THOU/mcL CHEMISTRY JOSHUA MPV 6.9(L) 7.0 - 11.5 fL CHEMISTRY JOSHUA ABS. NEUTROPHIL 3.60 1.80 - 7.70 THOU/mcL CHEMISTRY [place]UA ABS LYMPHS 3.00 1.00 - 4.00 THOU/mcL CHEMISTRY JOSHUA ABS MONOS 0.30 0.20 - 0.90 THOU/mcL CHEMISTRY [place]UA ABS EOS 0.10 0.03 - 0.45 THOU/mcL CHEMISTRY JOSHUA ABS BASOS 0.10 0.00 - 0.20 THOU/mcL CHEMISTRY JOSHUA SEGS 51 % CHEMISTRY JOSHUA LYMPHOCYTES 43 % CHEMISTR Y NORTH MONOCYTES 4 % CHEMISTRY JOSHUA EOSINOPHIL 1 % CHEMISTRY JOSHUA BASOPHILS 1 % CHEMISTRY JOSHUA Comment:Tested at [facility] [address] [facility] [address] Whole Blood 01/02/2025 5:13 PM EDT 01/02/2025 5:25 PM EDT us Dallin Espinoza MD LAB BLOOD ORDERABLES Final Result [facility] [address] [place] [address] [facility] [address] [place] [address] * ECG 12 lead (01/02/2025 4:37 PM [...] QTcF 417 ms TH TRACEMASTER QRS Horizontal [place] -19 deg TH TRACEMASTER QRS AXIS 16 deg TH TRACEMASTER I-40 Horizontal [place] 46 deg TH TRACEMASTER I-40 FRONT AXIS -17 deg TH TRACEMASTER T-40 Horizontal [place] -50 deg TH TRACEMASTER T-40 Front [place] 51 deg TH TRACEMASTER T Horizontal [place] 52 deg TH TRACEMASTER T WAVE AXIS 16 deg TH TRACEMASTER S-T Horizontal [place] 60 deg TH TRACEMASTER S-T Front [place] 24 deg TH TRACEMASTER ECG IMPRESSION - BORDERLINE ECG - TH TRACEMASTER ECG IMPRESSION SR-Sinus rhythm-normal P axis, V-rate 50-99 TH TRACEMASTER ECG IMPRESSION LVHVP-Probable left ventricular hypertrophy-mul tiple LVH criteria TH TRACEMASTER ECGGUID [id number] TH TRACEMASTER 01/02/2025 4:37 PM EDT us Dallin Espinoza MD ECG ORDERABLES Final Resu lt TH TRACEMASTER from Last 3 Months Insurance [facility] MEDICAID Care Teams Swimming Pool Attendant Relationship Specialty Start Date End Date Chetna Cedeno MD [facility] [address] [place] [address] PCP - General Family Medicine 01/02/25
--- OUTSIDE RECORDS SUMMARY | 2025-03-11 09:40 | XMS_ITS | Encounter Summary ---
Author Organization [facility] [place] [address] Care Team Providers Care Social Professionals Name Role Phone Chetna Cedeno MD Primary Care Provider [phone] Arlyn Schmidt MD Unavailable [phone] Tacho Echavarria MD Unavailable [phone] Matt Ulrich MD Unavailable [phone] Eze Brock Unavailable Annette Walker Unavailable [phone] Batool Celis MD Unavailable [phone] Reason for Visit * Reason Onset Date Comments Paperwork/forms 03/02/2025 paperwork receiv ed from [facility] Encounter Details Date Type Department Care Team (Late st Contact Info) Description 03/02/[address] [facility] [facility] [place] [address] [facility] [address] [place] [address] Arlyn Schmidt MD [address] [place] [address] Paperwork/forms (paperwork received from [facility]) Social History Tobacco Use Types Packs/Day Years [...] doctor or pharmacy? Never 11/07/2023 [facility] Utilities Answer Date Recorded In the [...] Date Recorded PHQ-2 Total Score 5 07/07/2024 [facility] [place] of Occupat ional Health - Occupational [...] in a halfway (including now)? No 11/07/2023 [facility] IP Transportation Answer D [...] No 12/06/2022 2:08 PM EDT MarvMacarena hernández ZEINA documented as of this encounter Mental Status * Because of a physical, mental or emotional condition, does this person have serious difficulty concentrating, remembering or making decisions? Answer Entry Date Author No 12/06/2022 2:08 PM EDT AaliyahdanyaMacarena hernández CCMSharonda documented in this encounter Miscellaneous Notes * Telephone Encounter - Toya Wilson MA - 03/02/2025 11:13 AM EDT attempted to reach patient about a fax we received from [facility], to ask if we are sending medical records there or if records are being sent to [place]. Unable to leave due to it not being set up. documented in this encounter Plan of Treatment Upcoming Encounters Date Type Department Care Team (Late st Contact Info) Description 04/29/2025 9:15 AM EDT Appointment [facility] [place] [address] Batool Celis MD [address] [place] [address] [place] [address] 05/19/2025 2:15 PM EST Office Visit [facility] [address] [facility] [address] [place] [address] Sin Tran MD [address] [place] [address] 06/09/2025 12:45 PM EST Procedure visit [facility] [place] [address] [facility] [address] [place] [address] Samm Ledesma APRN [address] [place] [address] 08/12/2025 10:40 AM EST Appointment [facility] Women's Wellness [place] [facility] [place] [address] Matt Ulrich MD [address] [place] [address] [address] [place] [address] documented as of this encounter Goals Goal Patient Goal Type Associated Problems Recent Progress Patient-Stated? Author Blood Pressure < 140/90 Blood Pressure 121/77(02/04 2:04 PM EDT) No Chetna Cedeno MD Breast [facility] Breast Health On track(2024 11:27 AM EDT) No Jasmin Porter, RAUL Note: Patient acknowledges understanding of new diagnosis, plan of care, available resources and how to contact Nurse Navigator with any future questions or concerns. Breast [facility] Breast Health Not on track(2024 11:27 AM EDT) No Jasmin Porter, RAUL Note: Patient will be compliant with monthly SBE and is aware of who to contact for any unusual or concerning findings. Breast [facility] Breast Health On track(2024 11:27 AM [...] [place] [address] [place] [address] PCP - General 06/21/10 03/08/25 Arlyn Schmidt MD [address] [place], [place] [id number] Consulting Physician Internal Medicine-Endocrinology, Diabetes & Metabolism 11/28/20 Tacho Echavarria MD 1 [place], [place] [id number] Internal Medicine-Medical Oncology 11/12/23 Matt Ulrich MD 1 [place], [place] [id number] Surgery-Surgical Oncology 12/04/23 Eze Brock Pastoral Care 12/13/23 Annette Walker, BUTTER PRINTER Chief Compressor Station Engineer 05/13/24 Batool Celis MD 1 [place] [address] Radiation Oncologist Radiology-Radiation Oncology 06/08/24 documented as of this encounter
--- OUTSIDE RECORDS SUMMARY | 2025-03-11 09:40 | XMS_ITS | Encounter Summary ---
Author Organization [place] [address] Care Team Providers Care Rail Car Repair Carman Name Role Phone Chetna Cedeno MD Primary Care Provider [phone] Arlyn Schmidt MD Unavailable [phone] Tacho Echavarria MD Unavailable [phone] Matt Ulrich MD Unavailable [phone] Eze Brock Unavailable Annette Walker Unavailable [phone] Batool Celis MD Unavailable [phone] Encounter Details Date Type Department Care Team (Late st Contact Info) Description 02/10/2025 Orders Only [facility] [place] [address] Shilpa Cline, RN Social History [...] Recorded In the past 12 months has [employer], oil, or water [employer] threatened to shut off services in your [...] 07/07/2024 [facility] of Occupat ional [facility] - Occupational Stress Questionnaire Answer Date [...] 11/07/2023 [facility] IP Transportation Answer D ate [...] EDT Appointment [facility] ONC [place], [place] [id number] Batool Celis MD [address] [place] [address] [place] [address] 05/19/2025 2:15 PM EST Office Visit [facility] [address] [facility] [address] [place] [address] Sin Tran MD [address] [place] [address] 06/09/2025 12:45 PM EST Procedure visit [facility] [address] [place], [place] [id number] Samm Ledesma APRN [address] [place], [place] [address] 08/12/2025 10:40 AM EST Appointment [facility] [place] [address] Matt Ulrich MD [address] [place] [address] 254 [place] [address] documented as of this [...] with any future questions or concerns. Breast [facility] Breast Health Not on track(2024 11:27 AM EDT) No Jasmin Porter RN Note: Patient will be compliant with monthly SBE and is aware of who to contact for any unusual or concerning findings. Breast [facility] Breast Health On track(2024 [...] documented as of this encounter Care Teams Rail Car Repair Carman Relationship Specialty [place] [address] [place] [id number] PCP - General 06/21/10 03/08/25 Arlyn Schmidt MD [address] [place] [address] Consulting Physician Internal Medicine-Endocrinology, Diabetes & Metabolism 11/28/20 Tacho Echavarria MD [address] [place] [address] Internal Medicine-Medical Oncology 11/12/23 Matt Ulrich MD [address] [place] [address] Surgery-Surgical Oncology 12/04/23 Eze Brock Pastoral Care 12/13/23 Annette Walker, ARACELI Register In [place] 05/13/24 Batool Celis MD 1 [facility] [place] [address] Radiation Oncologist Radiology-Radiation Oncology 06/08/24 documented as of this encounter
--- OUTSIDE RECORDS SUMMARY | 2025-03-11 09:40 | XMS_ITS | Encounter Summary ---
Author Organization [place] [address] Care Team Providers Care Golf Club Repairer Name Role Phone Chetna Cedeno MD Primary Care Provider [phone] Arlyn Schmidt MD Unavailable [phone] Tacho Echavarria MD Unavailable [phone] Matt Ulrich MD Unavailable [phone] Eze Brock Unavailable Annette Walker Unavailable [phone] Batool Celis MD Unavailable [phone] Reason for Visit * Reason Comments Oncology Nurse Navigation Encounter Details Date Type Department Care Team (Late st Contact Info) Description 01/29/2025 Patient Outreach [facility] [address] [place], [place] [phone] Shilpa Cline, RN Oncology Nurse Navigation Social [...] th e electric, gas, oil, or water [employer] threatened to shut off services in your [...] Total Score 5 07/07/2024 [facility] [place] of Occupat ional Health - Occupational Stress [...] a care home (including now)? No 11/07/2023 [facility] [...] again. Follow-up Plan 02/[address] Jericho Santiago [facility] will continue to follow patient. documented in this encounter Plan of Treatment Upcoming Encounters Date Type Department Care Team (Late st Contact Info) Description 04/29/2025 9:15 AM EDT Appointment [place] [address] Batool Celis MD [address] [place] [address] CANCER CARE [place] [id number] 05/19/2025 2:15 PM EST Office Visit [facility] [address] [place] [address] [address] [place] [address] Sin Tran MD [address] [place] [address] 06/09/2025 12:45 PM EST Procedure visit [facility] [address] [place] [place] [id number] Samm Ledesma APRN [address] [facility] [address] [place] [address] 08/12/2025 10:40 AM EST Appointment [facility] Women's Wellness [place] One [facility] [place] [id number] Matt Ulrich MD [address] [place] [address] [address] [place] [address] documented as of this encounter [...] documented as of this encounter Care Teams Golf Club Repairer Relationship Specialty [place] [address] [place] [address] PCP - General 06/21/10 03/08/25 Arlyn Schmidt MD [address] [place] [address] Consulting Physician Internal Medicine-Endocrinology, Diabetes & Metabolism 11/28/20 Tacho Echavarria MD 1 [place] [address] Internal Medicine-Medical Oncology 11/12/23 Matt Ulrich MD 1 [place] [address] Surgery-Surgical Oncology 12/04/23 Eze Brock Pastoral Care 12/13/23 Annette Walker, INNOVATION MANAGER Hair Assistant 05/13/24 Batool Celis MD 1 [facility] [place] [address] Radiation Oncologist Radiology-Radiation Oncology 06/08/24 documented as of this encounter
--- OUTSIDE RECORDS SUMMARY | 2025-03-11 09:40 | XMS_ITS | Encounter Summary ---
Author Organization [place] [address] Care Team Providers Care Pediatric Clinical Dietician Name Role Phone Chetna Cedeno MD Primary Care Provider [phone] Arlyn Schmidt MD Unavailable [phone] Tacho Echavarria MD Unavailable [phone] Matt Ulrich MD Unavailable [phone] Eze Brock Unavailable Annette Walker Unavailable [phone] Batool Celis MD Unavailable [phone] Encounter Details Date Type Department Care Team (Late st Contact Info) Description 01/28/2025 Orders Only Cancer Care Medical Oncology [place], [place] [phone] Tacho Echavarria MD [address] [place] [phone] Invasive ductal carcinoma of breast, female, right [...] Recorded PHQ-2 Total Score 5 07/07/2024 [facility] [place] of Occupat ional Health - Occupational Stress [...] a nursing home (including now)? No 11/07/2023 [facility] IP Transportation Answer D ate Recorded [...] Appointment [facility] [address] Batool Celis MD [address] [place] [address] [place] [address] 05/19/2025 2:15 PM EST Office Visit [address] [place] [address] Sin Tran MD [address] [place] [address] 06/09/2025 12:45 PM EST Procedure visit [facility] [address] [place] [address] Samm Ledesma, RESEARCH BIOSTATISTICIAN [address] [place] [address] 08/12/2025 10:40 AM EST Appointment [facility] Women's Wellness [facility] [place] [phone] Matt Ulrich MD [address] [place] [address] 254 [place] [address] documented as of this encounter [...] 1,245 pg/mL 02/04/2025 4:31 PM EDT [facility] [employer] Folate 6.16 >=4.80 ng/mL 02/04/2025 4:31 PM EDT [employer] Blood VENOUS BLOOD / Unknown Venipuncture / Unknown 02/04/2025 2:03 PM EDT 02/04/2025 2:03 PM EDT Narrative [employer] - 02/04/2025 4:31 PM EDT Ingestion of haroon doses of biotin (>5 mg/day) taken within 8 hours of drawing blood sample can interfere with this immunoassay test. Tacho Echavarria MD CHEMISTRY ORDERABLES Final Result [facility] [employer] 1 [facility] , [place] [address] * (ABNORMAL) CBC WITH DIFF (02/04/2025 2:03 PM EDT) WBC 8.1 3.7 - 10.3 x10(3)/mc L 02/04/2025 2:07 PM EDT [facility] RBC 2.95(L) 3.90 - 5.20 x10(6)/mc L 02/04/2025 2:07 PM EDT [facility] Hgb 9.4(L) 11.2 - 15.7 g/dL 02/04/2025 2:07 PM EDT [facility] Hct 28.1(L) 34.0 - 45.0 % 02/04/2025 2:07 PM EDT [facility] MCV 95.3 80.0 - 100.0 fL 02/04/2025 2:07 PM EDT [facility] MCH 31.9 26.0 - 34.0 pg 02/04/2025 2:07 PM EDT [facility] MCHC 33.5 30.7 - 35.5 g/dL 02/04/2025 2:07 PM EDT [facility] RDW 15.0(H) <=14.9 % 02/04/2025 2:07 PM EDT [facility] Platelet 163 155 - 369 x10(3)/mc L 02/04/2025 2:07 PM EDT [facility] MPV 8.8 8.8 - 12.5 fL 02/04/2025 2:07 PM EDT [facility] Neut # Prelim 5.6 1.6 - 6.1 x10(3)/mc L 02/04/2025 2:07 PM EDT [facility] Comment:Preliminary automate d absolute neutrophil [...] EDT [facility] [place] Percent 5.7 % [...] EDT [facility] [place] # 0.5 0.3 [...] Tacho Echavarria MD HEMATOLOGY ORDERABLES Final Result [facility] 1 [place] [address] * IRON+TIBC (02/04/2025 2:02 PM EDT) [facility] Iron 82 30 - 160 mcg/dL 02/04/2025 2:59 PM EDT [facility] Transferrin 279 200 - 360 mg/dL 02/04/2025 2:59 PM EDT [facility] Transferrin Saturation 21 20 - 50 % 02/04/2025 2:59 PM EDT [facility] TIBC 391 250 - 400 mcg/dL 02/04/2025 2:59 PM EDT [facility] [employer] [facility] Blood VENOUS BLOOD / Unknown Venipuncture / Unknown 02/04/2025 2:02 PM EDT 02/04/2025 2:02 PM EDT Tacho Echavarria MD CHEMISTRY ORDERABLES Final Result [facility] [address] [place] [address] [employer] [facility] 1 [facility], [address] [place] [id number] * (ABNORMAL) COMPREHENSIVE METABOLIC PANEL (02/04/2025 2:02 [...] mL/min/1.7 3 m2 02/04/2025 2:28 PM EDT [facility] Comment:Estimated GFR was ca lculated using the CKD-EPIcr (2020) equation refit without race. The equation is recommended by the National Kidney Foundation - [place] Society of Nephrology Task Force. Blood VENOUS BLOOD / Unknown Venipuncture / Unknown 02/04/2025 2:02 PM EDT 02/04/2025 2:02 PM EDT Tacho Echavarria MD CHEMISTRY ORDERABLES Final Result [facility] 1 [place] [id number] documented in this encounter Visit Diagnoses Diagnosis Invasive ductal carcinoma of breast, female, right (HCC)- Primary documented in this encounter Additional Health Concerns Assessment Noted Time PHQ-9 Depression Total Score: 17 024 8:39 AM EST PHQ-2 Depression Total Score: 5 07/07/20 24 8:39 AM EST documented as of this encounter Care Teams Pediatric Clinical Dietician Relationship Specialty [place] [address] [place] [address] PCP - General 06/21/10 03/08/25 Arlyn Schmidt MD [address] [place] [address] Consulting Physician Internal Medicine-Endocrinology, Diabetes & Metabolism 11/28/20 Tacho Echavarria MD 1 [place] [id number] Internal Medicine-Medical Oncology 11/12/23 Matt Ulrich MD 1 [place] [address] Surgery-Surgical Oncology 12/04/23 Eze Brock Pastoral Care 12/13/23 Annette Walker, RESTAURANT MANAGEMENT INTERNSHIP Weed Cutter 05/13/24 Batool Celis MD 1 [facility] [place] [address] Radiation Oncologist Radiology-Radiation Oncology 06/08/24 documented as of this encounter
--- OUTSIDE RECORDS SUMMARY | 2025-03-11 09:40 | XMS_ITS | Encounter Summary ---
Author Organization [place] [address] Care Team Providers Care Shaker Washer Name Role Phone Chetna Cedeno MD Primary Care Provider [phone] Arlyn Schmidt MD Unavailable [phone] Tacho Echavarria MD Unavailable [phone] Matt Ulrich MD Unavailable [phone] Eze Brock Unavailable Annette Walker Unavailable [phone] Batool Celis MD Unavailable [phone] Reason for Visit * Reason Comments Pharmacy Migraine Medication Management Qulipta Encounter Details Date Type Department Care Team (Latest Contact Info) Description 01/28/2025 Specialty Pharmacy [facility] [address] [place] [address] Sheridan Arellano CPhT Pharmacy Migraine [...] th e electric, gas, oil, or water [employer] threatened to shut off services in your [...] Score 5 07/07/2024 [facility] [place] of Occupat ional Health - Occupational Stress [...] in a long-term (including now)? No 11/07/2023 [facility] IP Transportation Answer [...] refills of Qulipta. Copay amount: $0 Sent [employer] message. Patient informed of copay. * Aaliyah [...] Appointment [facility] [place] [address] Batool Celis MD [address] [place] [address] [place] [address] 05/19/2025 2:15 PM EST Office Visit [address] [address] Sin Tran MD [address] [place] [address] [place] [address] 06/09/2025 12:45 PM EST Procedure visit [facility] [address] [place] [address] Samm Ledesma APRN [address] [place] [address] 08/12/2025 10:40 AM EST Appointment [facility] Women's Wellness [facility] [place] [address] Matt Ulrich MD [address] [place] [address] [address] [place] [address] documented as of this encounter Goals Goal [...] documented as of this encounter Care Teams Shaker Washer Relationship Specialty [place] [address] [place] [address] PCP - General 06/21/10 03/08/25 Arlyn Schmidt MD [facility] [place] [address] Consulting Physician Internal Medicine-Endocrinology, Diabetes & Metabolism 11/28/20 Tacho Echavarria MD 1 [place] [address] Internal Medicine-Medical Oncology 11/12/23 Matt Ulrich MD 1 [place] [address] Surgery-Surgical Oncology 12/04/23 Eze Brock Pastoral Care 12/13/23 Annette Walker, MARINE STEWARD Compliance Tester 05/13/24 Batool Celis MD 1 [facility] [place] [address] Radiation Oncologist Radiology-Radiation Oncology 06/08/24 documented as of this encounter
--- OUTSIDE RECORDS SUMMARY | 2025-03-11 09:40 | XMS_ITS | Encounter Summary ---
Author Organization [place] [address] Care Team Providers Care Private Investigator Name Role Phone Chetna Cedeon MD Primary Care Provider [phone] Arlyn Schmidt MD Unavailable [phone] Tacho Echavarria MD Unavailable [phone] Matt Ulrich MD Unavailable [phone] Eze Brock Unavailable Annette Walker Unavailable [phone] Batool Celis MD Unavailable [phone] Reason for Referral * Genetic Lab Test (Routine) - Authorization Not Needed Specialty Diagnoses / Procedures Referred By Contac t Referred To Contact Lab Diagnoses 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) Procedures PHARMACOGENOMIC PANEL Aury Delgado MD 1 [place] [address] Phone: tel: fax: Referral ID Status Reason Start Date Expiration Date Visits Requested Visits Authorized [id number] Authorization Not Needed 01/21/2025 01/21/2026 1 1 Encounter Details Date Type Department Care Team (Late st Contact Info) Description 01/21/2025 Orders Only [facility] 1 [place] [address] Osvaldo Johnson, Clerical Staff Invasive ductal carcinoma [...] 5 07/07/2024 [facility] [place] of Occupat ional Health - Occupational Stress [...] a care home (including now)? No 11/07/2023 [facility] IP Transportation Answer D ate [...] Appointment [facility] [place] [address] Batool Celis MD [address] [place] [address] CANCER CARE [place], [place] [id number] 05/19/2025 2:15 PM EST Office Visit [address] [place] [address] Sin Tran MD [address] [place] [address] 06/09/2025 12:45 PM EST Procedure visit [facility] [address] [place] [address] Samm Ledesma APRN [address] [facility] [address] [place] [address] 08/12/2025 10:40 AM EST Appointment [facility] Women's Wellness [facility] [place] [address] Matt Ulrich MD [address] [place] [address] MUSA [address] [place] [address] documented as of this encounter Goals Goal [...] this encounter Results * PHARMACOGENOMIC PANEL (01/06/2025) [facility] Pharmacogenomic Lab Comments See Comment SabreGRAEME Comment:Hemizygous males and homozygous females are reported as HTR2C CC. Pharmacogenomic Lab Method See Comment SabreGRAEME Comment: This test was developed, and its performance characteristics determined by [facility], a clinical laboratory located at [address] [place] [address]. These tests have not been cleared or approved by the U.S. Food and Drug Administration. The FDA does not require this test to go through premarket FDA review. [facility] is certified under CLIA-88 and accredited by the [employer] as qualified to perform high-complexity testing. This test is approved for clinical use by the [facility]. This test should not be regarded as investigational or for research. *Genomic DNA was analyzed by PCR using [employer] TaqMan and/or AdKeeperQ probe-based methods to interrogate the variant locations [...] are associated with more than one haplotype, [facility] infers and reports the most likely diplotype [...] Call. *The variant detection methods validated by [facility] provide >99.9% accuracy for the adult population; [...] Clara through the website or by calling [phone]. Blood 01/06/2025 01/22/2025 Narrative [facility] - 01/27/2025 This result has genomic variants that were not included in this document. us Aury Delgado MD CLARA - ORDERABLES Final Result CLARA [address] [phone] documented in this encounter Visit Diagnoses Diagnosis 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)- Primary documented in this encounter Additional Health Concerns Assessment Noted Time PHQ-9 Depression Total Score: 17 024 8:39 AM EST PHQ-2 Depression Total Score: 5 07/07/20 24 8:39 AM EST documented as of this encounter Care Teams Private Investigator Relationship Specialty [place] [address] [place] [address] PCP - General 06/21/10 03/08/25 Arlyn Schmidt MD [address] [place] [address] Consulting Physician Internal Medicine-Endocrinology, Diabetes & Metabolism 11/28/20 Tacho Echavarria MD 1 [place] [address] Internal Medicine-Medical Oncology 11/12/23 Matt Ulrich MD 1 [place] [address] Surgery-Surgical Oncology 12/04/23 Eze Brock Pastoral Care 12/13/23 Annette Walker, ARACELI Physical Aerodynamicist 05/13/24 Batool Celis MD 1 [facility] [place] [address] Radiation Oncologist Radiology-Radiation Oncology 06/08/24 documented as of this encounter
--- OUTSIDE RECORDS SUMMARY | 2025-03-11 09:40 | XMS_ITS | Clinical Summary ---
Author Organization [facility] Address [address] [place] [address] Phone Care Team Providers Care Chemistry Instructor Name Role Phone Outside, Provider Unavailable Conditions or Problems No information available. Medications No information available. Medications Administered No information available. Allergies, Adverse Reactions, Alerts No information available. Results No information available. Plan of Care No information available. Procedures No information available. Vital Signs No information available. Immunizations No information available. Advance Directives No information available.
--- OUTSIDE RECORDS SUMMARY | 2025-03-11 09:40 | XMS_ITS | Encounter Summary ---
Author Organization [place] [address] Care Team Providers Care Compliance Review Officer Name Role Phone Chetna Cedeno MD Primary Care Provider [phone] Arlyn Schmidt MD Unavailable [phone] Tacho Echavarria MD Unavailable [phone] Matt Ulrich MD Unavailable [phone] Eze Brock Unavailable Annette Walker Unavailable [phone] Batool Celis MD Unavailable [phone] Reason for Visit * Reason Comments Medication Refill Encounter Details Date Type Department Care Team (Late st Contact Info) Description 01/15/2025 Refill [facility] [address] [place] [address] Samm Ledesma, GREY GOODS EXAMINER [address] [facility] [address] [facility] [address] [place] [address] Medication Refill Social History Tobacco Use Types [...] in a correction (including now)? No 11/07/2023 [facility] IP Transportation [...] Appointment [facility] [address] Batool Celis MD [address] [place] [address] [place] [address] 05/19/2025 2:15 PM EST Office Visit [address] [address] Sin Tran MD [address] [place] [address] 06/09/2025 12:45 PM EST Procedure visit [facility] [address] [place] [address] Samm Ledesma, GREY GOODS EXAMINER [address] [place] [address] 08/12/2025 10:[address] [facility] Women's Wellness [place] [facility] [address] Matt Ulrich MD [address] [place] [address] [address] [place] [address] documented as of this encounter Goals Goal [...] documented as of this encounter Care Teams Compliance Review Officer Relationship Specialty [place] [address] [place] [address] PCP - General 06/21/10 03/08/25 Arlyn Schmidt MD [address] [place] [address] Consulting Physician Internal Medicine-Endocrinology, Diabetes & Metabolism 11/28/20 Tacho Echavarria MD 1 [place] [id number] Internal Medicine-Medical Oncology 11/12/23 Matt Ulrich MD 1 [place] [address] Surgery-Surgical Oncology 12/04/23 Eze Brock Pastoral Care 12/13/23 Annette Walker, ANKLE PATCH MOLDER Amusement Park Ride Mechanic 05/13/24 Batool Celis MD 1 [facility] [place] [address] Radiation Oncologist Radiology-Radiation Oncology 06/08/24 documented as of this encounter
--- OUTSIDE RECORDS SUMMARY | 2025-03-11 09:40 | XMS_ITS | Encounter Summary ---
Author Organization [place] [address] Care Team Providers Care Safety Sealer Name Role Phone Chetna Cedeno MD Primary Care Provider [phone] Arlyn Schmidt MD Unavailable [phone] Tacho Echavarria MD Unavailable [phone] Matt Ulrich MD Unavailable [phone] Eze Brock Unavailable Annette Walker Unavailable [phone] Batool Celis MD Unavailable [phone] Encounter Details Date Type Department Care Team (Late st Contact Info) Description 03/04/2025 Orders Only [facility] Medical Oncology [place], [place] [id number] Tacho Echavarria MD [address] [place] [address] [phone] Invasive ductal carcinoma of breast, female, right [...] PHQ-2 Total Score 5 07/07/2024 [facility] [place] of Occupat ional Health - Occupational [...] in a jail (including now)? No 11/07/2023 [facility] IP Transportation Answer D [...] [place] [address] Batool Celis MD [address] [place] [address] [place] [address] 05/19/2025 2:15 PM EST Office Visit [address] [place] [address] Sin Tran MD [address] [place] [address] 06/09/2025 12:45 PM EST Procedure visit [facility] [address] [facility] [address] [place] [address] Samm Ledesma, LANG INTERPRETER [address] [address] [address] [place] [address] 08/12/2025 10:40 AM EST Appointment [facility] Women's Wellness [place] [address] Matt Ulrich MD [address] [place] [address] [address] [place] [address] Scheduled Orders Name Type Priority Associated Diagnoses Orde r Schedule CBC WITH DIFF Lab STAT Invasive ductal carcinoma of breast, female, right (HCC) 1 Occurrences starting 03/04/2025 until 03/04/2026 COMPREHENSIVE METABOLIC PANEL Lab STAT Invasive ductal carcinoma of breast, female, right (HCC) 1 Occurrences starting 03/04/2025 until 03/04/2026 documented as of this encounter Goals Goal [...] with any future questions or concerns. Breast [facility] Breast Health Not on track(2024 11:27 AM EDT) No Jasmin Porter, RAUL Note: Patient will be compliant with monthly SBE and is aware of who to contact for any unusual or concerning findings. Breast [facility] Breast Health On track(2024 11:27 [...] as of this encounter Care Teams Safety Sealer Relationship Specialty [place] [address] [place] [address] PCP - General 06/21/10 03/08/25 Arlyn Schmidt MD [address] [place] [address] Consulting Physician Internal Medicine-Endocrinology, Diabetes & Metabolism 11/28/20 Tacho Echavarria MD 1 [place], [place] [phone] Internal Medicine-Medical Oncology 11/12/23 Matt Ulrich MD 1 [place], [place] [address] Surgery-Surgical Oncology 12/04/23 Eze Brock Pastoral Care 12/13/23 Annette Walker, ECONOMIC HISTORIAN Coremaking Machine Operator 05/13/24 Batool Celis MD 1 [facility] [place] [address] Radiation Oncologist Radiology-Radiation Oncology 06/08/24 documented as of this encounter
--- OUTSIDE RECORDS SUMMARY | 2025-03-11 09:40 | XMS_ITS | Encounter Summary ---
Author Organization [place] [address] Care Team Providers Care Aviation Mechanic Name Role Phone Chetna Cedeno MD Primary Care Provider [phone] Arlyn Schmidt MD Unavailable [phone] Tacho Echavarria MD Unavailable [phone] Matt Ulrich MD Unavailable [phone] Eze Brock Unavailable Annette Walker Unavailable [phone] Batool Celis MD Unavailable [phone] Reason for Visit * Reason Onset Date Comments Symptom Call 01/29/2025 Diarrhea, body a ches, vomiting Encounter Details Date Type Department Care Team (Late st Contact Info) Description 01/29/2025 Telephone Cancer Care Medical Oncology [place], [place] [phone] Tacho Echavarria MD [address] [place] [address] [phone] Symptom Call (Diarrhea, body aches, vomiting) Social [...] Recorded PHQ-2 Total Score 5 07/07/2024 [facility] [place] of Occupat ional Health - Occupational Stress [...] in a half-way (including now)? No 11/07/2023 [facility] IP Transportation [...] the Patient seen at:[facility] Preferred call back number:[phone] RN is aware documented in this encounter Plan of Treatment Upcoming Encounters Date Type Department Care Team (Late st Contact Info) Description 04/29/2025 9:15 AM EDT Appointment [facility] [place] [address] Batool Celis MD [address] [place] [address] [place] [address] 05/19/2025 2:15 PM EST Office Visit [facility] [address] [place] [address] [address] [place] [address] Sin Tran MD [address] [place] [address] 06/09/2025 12:45 PM EST Procedure visit [facility] [address] [facility] [address] [place] [address] Samm Ledesma APRN [address] [place] [address] 08/12/2025 10:40 AM EST Appointment [facility] Women's Wellness [place] One [facility] [place] [address] Matt Ulrich MD [address] [place] [address] MUSA Z[place] [address] documented as of this encounter Goals [...] documented as of this encounter Care Teams Aviation Mechanic Relationship Specialty [place] [address] [place] [address] PCP - General 06/21/10 03/08/25 Arlyn Schmidt MD [address] [place] [address] Consulting Physician Internal Medicine-Endocrinology, Diabetes & Metabolism 11/28/20 Tacho Echavarria MD 1 [place] [address] Internal Medicine-Medical Oncology 11/12/23 Matt Ulrich MD 1 [place] [address] Surgery-Surgical Oncology 12/04/23 Eze Brock Pastoral Care 12/13/23 Annette Walker, COKE CRUSHER OPERATOR Panel Laminator 05/13/24 Batool Celis MD 1 [facility] [place] [address] Radiation Oncologist Radiology-Radiation Oncology 06/08/24 documented as of this encounter
--- OUTSIDE RECORDS SUMMARY | 2025-03-11 09:40 | XMS_ITS | Encounter Summary ---
Author Organization [place] [address] Care Team Providers Care Machine Shop Helper Name Role Phone Chetna Cedeno MD Primary Care Provider [phone] Arlyn Schmidt MD Unavailable [phone] Tacho Echavarria MD Unavailable [phone] Matt Ulrich MD Unavailable [phone] Eze Brock Unavailable Annette Walker Unavailable [phone] Batool Celis MD Unavailable [phone] Reason for Visit * Reason Comments Oncology Nurse Navigation Encounter Details Date Type Department Care Team (Late st Contact Info) Description 02/10/2025 Patient Outreach [facility] TUM[facility] [address] [place], [place] [phone] Tacho Echavarria MD [address] [place] [address] [phone] Oncology Nurse Navigation Social History Tobacco Use [...] in a usp (including now)? No 11/07/2023 [facility] Transportation Answer D [...] NN asking for a copy (printed for lease picker) of the letter that Dr. Echavarria wrote regarding the air conditioner and asked for an update on getting a letter to help with her student loanforgiveness. She is in the area today and is asking if she can come and lease picker these letters Theletter about the air conditioner looks like it need editing. NN will send message to clinic. Also dora thompson voicemail for Dr. Echavarria's nurse. Onc NN will continue to follow patient. documented in this encounter Plan of Treatment Upcoming Encounters Date Type Department Care Team (Late st Contact Info) Description 04/29/2025 9:15 AM EDT Appointment [place] [address] Batool Celis MD [address] [place] [address] [place] [address] 05/19/2025 2:15 PM EST Office Visit [address] [place] [address] Sin Tran MD [address] [place] [address] 06/09/2025 12:45 PM EST Procedure visit [facility] [address] [facility] [address] [place] [address] Samm Ledesma APRN [address] [place] [address] 08/12/2025 10:[address] [facility] Women's Wellness [facility] [place] [phone] Matt Ulrich MD [address] [place] [address] [address] [place] [address] documented as of this encounter [...] as of this encounter Care Teams Machine Shop Helper Relationship Specialty [place] [address] [place] [address] PCP - General 06/21/10 03/08/25 Arlyn Schmidt MD [address] [place] [address] Consulting Physician Internal Medicine-Endocrinology, Diabetes & Metabolism 11/28/20 Tacho Echavarria MD [address] [place] [address] [id number] Internal Medicine-Medical Oncology 11/12/23 Matt Ulrich MD 1 [place] [address] Surgery-Surgical Oncology 12/04/23 Eze Brock Pastoral Care 12/13/23 Annette Walker, ARACELI Transportation Planner 05/13/24 Batool Celis MD 1 [facility] [place] [address] Radiation Oncologist Radiology-Radiation Oncology 06/08/24 documented as of this encounter
--- OUTSIDE RECORDS SUMMARY | 2025-03-11 09:40 | XMS_ITS | Encounter Summary ---
Author Organization [place] [address] Care Team Providers Care Contractor General Engineering Name Role Phone Chetna Cedeno MD Primary Care Provider [phone] Arlyn Schmidt MD Unavailable [phone] Tacho Echavarria MD Unavailable [phone] Matt Ulrich MD Unavailable [phone] Eze Brock Unavailable Annette Walker Unavailable [phone] Batool Celis MD Unavailable [phone] Reason for Visit * Reason Onset Date Comments Medication Refill 02/08/2025 Encounter Details Date Type Department Care Team (Late st Contact Info) Description 02/08/2025 Refill [facility] Care Medical Oncology [place], [place] [phone] Tacho Echavarria MD [address] [place] [address] [phone] Medication Refill Social History Tobacco Use Types [...] health care facility (including now)? No 11/07/2023 [facility] IP Transportation Answer D [...] EDT Appointment [place] [address] Batool Celis MD [address] [place] [address] [place] [address] 05/19/2025 2:15 PM EST Office Visit [address] [place] [address] Sin Tran MD [address] [facility] [place] [address] 06/09/2025 12:45 PM EST Procedure visit [facility] [address] [facility] [address] [place] [address] Samm Ledesma, STONE BANKER [address] [facility] [address] [place] [address] 08/12/2025 10:40 AM EST Appointment [facility] Women's Wellness [facility] [place] [address] Matt Ulrich MD [address] [place] [address] [address] [place] [address] documented as of this encounter Goals Goal Patient Goal Type Associated Problems Recent Progress Patient-Stated? Author Blood Pressure < 140/90 Blood Pressure 121/77(02/04 2:04 PM EDT) No Chetna Cedeno MD Breast [facility] Breast Health On track(2024 11:27 AM EDT) No Jasmin Porter, RAUL Note: Patient acknowledges understanding of new diagnosis, plan of care, available resources and how to contact Nurse Navigator with any future questions or concerns. Breast [facility] Breast Health Not on track(2024 11:27 AM EDT) No Jasmin Porter, RAUL Note: Patient will be compliant with monthly SBE and is aware of who to contact for any unusual or concerning findings. Breast [facility] Breast Health On track(2024 11:27 [...] documented as of this encounter Care Teams Contractor General Engineering Relationship Specialty [place] [address] [place] [address] PCP - General 06/21/10 03/08/25 Arlyn Schmidt MD [address] [place] [address] Consulting Physician Internal Medicine-Endocrinology, Diabetes & Metabolism 11/28/20 Tacho Echavarria MD 1 [place] [address] Internal Medicine-Medical Oncology 11/12/23 Matt Ulrich MD 1 [place] [address] Surgery-Surgical Oncology 12/04/23 Eze Brock Pastoral Care 12/13/23 Annette Walker MSW Air Pollution Auditor 05/13/24 Batool Celis MD [address] [place] [address] [place] [address] Radiation Oncologist Radiology-Radiation Oncology 06/08/24 documented as of this encounter
--- OUTSIDE RECORDS SUMMARY | 2025-03-11 09:40 | XMS_ITS | Encounter Summary ---
Author Organization [place] [address] Care Team Providers Care Terrazzo Polisher Name Role Phone Chetna Cedeno MD Primary Care Provider [phone] Arlyn Schmidt MD Unavailable [phone] Tacho Echavarria MD Unavailable [phone] Matt Ulrich MD Unavailable [phone] Eze Brock Unavailable Annette Walker Unavailable [phone] Batool Celis MD Unavailable [phone] Encounter Details Date Type Department Care Team (Latest Contact Info) Description 01/27/2025 Results Follow-Up [facility] 1 [place] [address] Benito Snell, PharmD PHARMACOGENOMIC PANEL [...] [facility] of Occupat ional [facility] - Occupational Stress Questionnaire Answer Date [...] in a half-way (including now)? No 11/07/2023 [facility] [...] EDT Appointment [facility] [place] [phone] Batool Celis MD [address] [place] [address] [place] [address] 05/19/2025 2:15 PM EST Office Visit [facility] [address] [facility] [address] [place] [address] Sin Tran MD [address] [place] [address] 06/09/2025 12:45 PM EST Procedure visit [facility] [address] [facility] [address] [place], [place] [id number] Samm Ledesma APRN [address] [address] [place] [address] 08/12/2025 10:40 AM EST Appointment [facility] Women's Wellness [place] [phone] Matt Ulrich MD [address] [place] [address] [address] [place] [address] documented as of this encounter Goals Goal Patient Goal Type Associated Problems Recent Progress Patient-Stated? 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 Primary hypercoagulable state documented in this encounter Additional Health Concerns Assessment Noted Time PHQ-9 Depression Total Score: 17 024 8:39 AM EST PHQ-2 Depression Total Score: 5 07/07/20 24 8:39 AM EST documented as of this encounter Care Teams Terrazzo Polisher Relationship Specialty [place] [address] [place] [address] PCP - General 06/21/10 03/08/25 Arlyn Schmidt MD [address] [place] [address] Consulting Physician Internal Medicine-Endocrinology, Diabetes & Metabolism 11/28/20 Tacho Echavarria MD 1 [place] [address] Internal Medicine-Medical Oncology 11/12/23 Matt Ulrich MD 1 [place] [address] Surgery-Surgical Oncology 12/04/23 Eze Brock Pastoral Care 12/13/23 Annette Walker, ARACELI Aircraft Lay Out Worker 05/13/24 Batool Celis MD [address] [place] [address] [place] [address] Radiation Oncologist Radiology-Radiation Oncology 06/08/24 documented as of this encounter
--- OUTSIDE RECORDS SUMMARY | 2025-03-11 09:40 | XMS_ITS | Encounter Summary ---
Author Organization [place] [address] Care Team Providers Care Child Care Associate Teacher Name Role Phone Chetna Cedeno MD Primary Care Provider [phone] Arlyn Schmidt MD Unavailable [phone] Tacho Echavarria MD Unavailable [phone] Matt Ulrich MD Unavailable [phone] Eze Brock Unavailable Annette Walker Unavailable [phone] Batool Celis MD Unavailable [phone] Ayush Marrero MD Primary Care Provider [phone] Reason for Visit * Reason Onset Date Comments Medication Refill 03/04/2025 Encounter Details Date Type Department Care Team (Late st Contact Info) Description 03/04/2025 Telephone [facility] [address] [place] [address] [place] [address] [place] [address] Medication Refill Social History Tobacco Use Types [...] pharmacy? Never 11/07/2023 [facility] Utilities Answer Date Recorded [...] PHQ-2 Total Score 5 07/07/2024 [facility] - Occupational Stress Questionnaire Answer [...] time in the past [facility], were you homeless or living in a assisted (including now)? No 11/07/2023 [facility] IP Transportation Answer D [...] No 12/06/2022 2:08 PM EDT Macarena Marion ZEINA * Because of a physical, mental or [...] No 12/06/2022 2:08 PM EDT Macarena Marion ZEINA documented in this encounter Miscellaneous Notes * Telephone Encounter - Shilpa Verdugo RMA - 03/09/2025 10:27 AM EDT Spoke with pt. Pt has transferred to Dr. Byrne. PCP changed. * Telephone Encounter - Linda Osborne MD - 03/05/2025 4:54 PM EDT No refill Wait until patient gets bloodwork done on 03/[address] Echavarria * Telephone Encounter - Sanam Julio MA - 03/04/2025 3:07 PM EDT Please advise do we want patient to continue ? * Telephone Encounter - Chetna Cedeno MD - 03/04/2025 3:03 PM EDT See 02-05-25 tele note * Telephone Encounter - Sanam Julio MA - 03/04/2025 2:43 PM EDT I do not see that patient is on potassium or has been on potasium , please advise documented in this encounter Plan of Treatment Upcoming Encounters Date Type Department Care Team (Late st Contact Info) Description 04/29/2025 9:15 AM EDT Appointment [facility] [place] [address] Batool Celis MD [address] [place] [address] [place] [address] 05/19/2025 2:15 PM EST Office Visit [facility] [address] [place] [address] [address] [place] [address] Sin Tran MD [address] [place] [address] 06/09/2025 12:45 PM EST Procedure visit [facility] [address] [place] [address] Samm Ledesma, LEYLA [address] [place] [address] 08/12/2025 10:40 AM EST Appointment [facility] [place] [id number] Matt Ulrich MD [address] [place] [address] 254 [place] [address] documented as of this encounter [...] documented as of this encounter Care Teams Child Care Associate Teacher Relationship Specialty [place] [address] [place] [address] PCP - General 06/21/10 03/08/25 Ayush Marrero MD [address] [place] [address] PCP - General Family Medicine 03/09/25 Arlyn Schmidt MD [address] [place] [address] Consulting Physician Internal Medicine-Endocrinology, Diabetes & Metabolism 11/28/20 Tacho Echavarria MD [address] [place] [address] Internal Medicine-Medical Oncology 11/12/23 Matt Ulrich MD 1 [place] [address] Surgery-Surgical Oncology 12/04/23 Eze Brock Pastoral Care 12/13/23 Annette Walker, WIND FARM OPERATIONS MANAGER Hammer Shop Supervisor 05/13/24 Batool Celis MD 1 [facility] [place] [address] Radiation Oncologist Radiology-Radiation Oncology 06/08/24 documented as of this encounter
--- OUTSIDE RECORDS SUMMARY | 2025-03-11 09:40 | XMS_ITS | Encounter Summary ---
Author Organization [place] [address] Care Team Providers Care Surveillance Sensor Operator Name Role Phone Chetna Cedeno MD Primary Care Provider [phone] Arlyn Schmidt MD Unavailable [phone] Tacho Echavarria MD Unavailable [phone] Matt Ulrich MD Unavailable [phone] Eze Brock Unavailable Annette Walker Unavailable [phone] Batool Celis MD Unavailable [phone] Encounter Details Date Type Department Care Team (Late st Contact Info) Description 12/25/2024 Telephone [facility] [place] [address] Jasmin Porter RN Social History [...] from your doctor or pharmacy? Never 11/07/2023 [facility] Utilities Answer Date Recorded In [...] 07/07/2024 [facility] of Occupat ional [facility] - Occupational Stress Questionnaire Answer [...] a long term (including now)? No 11/07/2023 [facility] IP Transportation Answer D [...] EDT Appointment [facility] [place] [id number] Batool Celis MD [address] [place] [address] [place] [address] 05/19/2025 2:15 PM EST Office Visit [facility] [address] [facility] [address] [place] [address] Sin Tran MD [address] [place] [address] 06/09/2025 12:45 PM EST Procedure visit [facility] [address] [facility] [address] [place], [place] [id number] Samm Ledesma APRN [address] [facility] [facility] [address] [place] [address] 08/12/2025 10:40 AM EST Appointment [facility] Women's Wellness [place] [id number] Matt Ulrich MD [address] [place] [address] [address] [place] [address] documented as of this encounter [...] with any future questions or concerns. Breast [facility] Breast Health Not on [...] of this encounter Care Teams Surveillance Sensor Operator Relationship Specialty [place] [address] [place] [address] PCP - General 06/21/10 03/08/25 Arlyn Schmidt MD [address] [place] [address] Consulting Physician Internal Medicine-Endocrinology, Diabetes & Metabolism 11/28/20 Tacho Echavarria MD [address] [place] [address] Internal Medicine-Medical Oncology 11/12/23 Matt Ulrich MD [address] [place] [address] Surgery-Surgical Oncology 12/04/23 Eze Brock Pastoral Care 12/13/23 Annette Walker MSW Video Clerk 05/13/24 Batool Celis MD 1 [facility] [place] [address] Radiation Oncologist Radiology-Radiation Oncology 06/08/24 documented as of this encounter
--- OUTSIDE RECORDS SUMMARY | 2025-03-11 09:40 | XMS_ITS | Encounter Summary ---
Author Organization [place] [address] Care Team Providers Care Drier Transfer Car Operator Name Role Phone Chetna Cedeno MD Primary Care Provider [phone] Arlyn Schmidt MD Unavailable [phone] Tcaho Echavarria MD Unavailable [phone] Matt Ulrich MD Unavailable [phone] Eze Brock Unavailable Annette Walker Unavailable [phone] Batool Celis MD Unavailable [phone] Reason for Visit * Reason Comments Medication Refill Encounter Details Date Type Department Care Team (Late st Contact Info) Description 01/15/2025 Refill [facility] [address] [place] [address] [place] [address] [place] [address] Medication Refill Social History Tobacco [...] doctor or pharmacy? Never 11/07/2023 [facility] Utilities Answer Date Recorded In the past [...] a long term (including now)? No 11/07/2023 [facility] IP Transportation Answer D [...] EDT Appointment [facility] [place] [phone] Batool Celis MD [address] [place] [address] [place] [address] 05/19/2025 2:15 PM EST Office Visit [facility] [address] [place] [address] [address] [place] [address] Sin Tran MD [address] [place] [address] 06/09/2025 12:45 PM EST Procedure visit [facility] [address] [facility] [address] [place] [address] Samm Ledesma APRN [address] [address] [place] [address] 08/12/2025 10:40 AM EST Appointment [facility] [place] [address] Matt Ulrich MD [address] [place] [address] documented as of this encounter Goals Goal [...] documented as of this encounter Care Teams Drier Transfer Car Operator Relationship Specialty [place] [address] [place] [address] PCP - General 06/21/10 03/08/25 Arlyn Schmidt MD [address] [place] [address] Consulting Physician Internal Medicine-Endocrinology, Diabetes & Metabolism 11/28/20 Tacho Echavarria MD 1 [place] [address] Internal Medicine-Medical Oncology 11/12/23 Matt Ulrich MD 1 [place] [address] Surgery-Surgical Oncology 12/04/23 Eze Brock Pastoral Care 12/13/23 Annette Walker, [facility] Railroad Dining Car Stewardess 05/13/24 Batool Celis MD 1 [facility] [place] [address] Radiation Oncologist Radiology-Radiation Oncology 06/08/24 documented as of this encounter
--- OUTSIDE RECORDS SUMMARY | 2025-03-11 09:40 | XMS_ITS | Encounter Summary ---
Author Organization [place] [address] Care Team Providers Care Floral Assistant Name Role Phone Arlyn Schmidt MD Unavailable [phone] Tacho Echavarria MD Unavailable [phone] Matt Ulrich MD Unavailable [phone] Eze Brock Unavailable Annette Walker INDUSTRIAL BOILERMAKER Unavailable [phone] Batool Celis MD Unavailable [phone] Ayush Marrero MD Primary Care Provider [phone] Encounter Details Date Type Department Care Team (Late st Contact Info) Description 03/09/2025 Telephone Cancer Care Medical Oncology [place], [place] [phone] Tacho Echavarria MD [address] [place] [address] [phone] Social History Tobacco Use Types Packs/Day Years [...] Date Recorded PHQ-2 Total Score 5 07/07/2024 [facility] of Occupat ional Health - Occupational Stress [...] a skilled nursing (including now)? No 11/07/2023 [facility] IP Transportation Answer [...] Telephone Encounter - Rosana Gupta RN - 03/09/2025 1:32 PM EDT Noted, thank you * Telephone Encounter - Joselin Mendez - 03/09/2025 1:22 PM EDT Called patient to reschedule her cancelled appointment She said she does not want to reschedule documented in this encounter Plan of Treatment Upcoming Encounters Date Type Department Care Team (Late st Contact Info) Description 04/29/2025 9:15 AM EDT Appointment [place] [address] Batool Celis MD [address] [place] [address] [place] [address] 05/19/2025 2:15 PM EST Office Visit [facility] [address] [place] [address] Sin Tran MD [address] [place] [address] 06/09/2025 12:45 PM EST Procedure visit [facility] [address] [facility] [address] [place] [address] Samm Ledesma, HABILITATIVE INTERVENTIONIST [address] [place] [address] 08/12/2025 10:40 AM EST Appointment [facility] Women's Wellness [place] [facility] [place] [id number] Matt Ulrich MD [address] [place] [address] [place] [address] documented as of this encounter Goals Goal [...] documented as of this encounter Care Teams Floral Assistant Relationship Specialty Start Date End Date Ayush Marrero MD [address] [place], [place] [phone] PCP - General Family Medicine 03/09/25 Arlyn Schmidt MD [address] [place] [address] Consulting Physician Internal Medicine-Endocrinology, Diabetes & Metabolism 11/28/20 Tacho Echavarria MD 1 [place] [address] Internal Medicine-Medical Oncology 11/12/23 Matt Ulrich MD 1 [place] [address] Surgery-Surgical Oncology 12/04/23 Eze Brock Pastoral Care 12/13/23 Annette Walker, ARACELI Health And Physical Education Teacher 05/13/24 Batool Celis MD 1 [facility] [place] [address] Radiation Oncologist Radiology-Radiation Oncology 06/08/24 documented as of this encounter
--- OUTSIDE RECORDS SUMMARY | 2025-03-11 09:40 | XMS_ITS | Encounter Summary ---
Author Organization [place] [address] Care Team Providers Care Hatchery Manager Name Role Phone Chetna Cedeno MD Primary Care Provider [phone] Arlyn Schmidt MD Unavailable [phone] Tacho Echavarria MD Unavailable [phone] Matt Ulrich MD Unavailable [phone] Eze Brock Unavailable Annette Walker SENIOR CYTOGENETIC TECHNOLOGIST Unavailable [phone] Batool Celis MD Unavailable [phone] Encounter Details Date Type Department Care Team (Late st Contact Info) Description 01/29/2025 Social Work [facility] Cancer Care [facility] [place] [address] Sonny Fleming, SENIOR CYTOGENETIC TECHNOLOGIST Social History Tobacco Use Types Packs/Day Years [...] your doctor or pharmacy? Never 11/07/2023 [facility] Utilities Answer Date Recorded In the past 12 months has th e electric, gas, oil, or water [employer] threatened to shut off services in your [...] Score 5 07/07/2024 [facility] [place] of Occupat ional Health - Occupational Stress [...] in a chcf (including now)? No 11/07/2023 [facility] IP Transportation Answer [...] - 01/29/2025 3:12 PM EDT 01/29/25 1511 Wood Technologist Assessment Referred By phone call Disease/[place] Site Salvage Winder Assignment Breast cancer Referral Location: [facility] Reason for Referral transportation Identified Needs Adjustment to illness;Transportation Social Work Interventions Transportation;Brief Couseling/Support;Education/Information FARHAD Romo received a call from pt stating that she is in need of a waiver for transportation from her health insurance as she is not feeling well enough to drive to her appointments. SWISS MACHINIST followed up with MAGAN Reid to discuss [...] Appointment [place] [address] Batool Celis MD [address] [place] [address] [place] [address] 05/19/2025 2:15 PM EST Office Visit [address] [address] Sin Tran MD [address] [place] [id number] 06/09/2025 12:45 PM EST Procedure visit [facility] [address] [place] [address] Samm Ledesma, JACQUARD LOOM HEDDLES TIER [address] [place] [address] 08/12/2025 10:40 AM EST Appointment [facility] Women's Wellness [facility] [place] [address] Matt Ulrich MD [address] [place] [address] 254 [place] [address] documented as of this encounter Goals Goal Patient Goal Type Associated Problems Recent Progress Patient-Stated? Author Blood Pressure < 140/90 Blood Pressure 121/77(02/04 2:04 PM EDT) No Chetna Cedeno MD Breast [facility] Breast Health On track(2024 11:27 AM EDT) No Jasmin Porter, RAUL Note: Patient acknowledges understanding of new diagnosis, plan of care, available resources and how to contact Nurse Navigator with any future questions or concerns. Breast [facility] Breast Health Not on track(2024 11:27 [...] documented as of this encounter Care Teams Hatchery Manager Relationship Specialty [place] [address] [place] [address] PCP - General 06/21/10 03/08/25 Arlyn Shcmidt MD [address] [place], [place] [address] Consulting Physician Internal Medicine-Endocrinology, Diabetes & Metabolism 11/28/20 Tacho Echavarria MD 1 [place], [place] [phone] Internal Medicine-Medical Oncology 11/12/23 Matt Ulrich MD 1 [place], [place] [address] Surgery-Surgical Oncology 12/04/23 Eze Brock Pastoral Care 12/13/23 Annette Walker, SENIOR CYTOGENETIC TECHNOLOGIST Salvage Winder 05/13/24 Batool Celis MD 1 [place] [address] Radiation Oncologist Radiology-Radiation Oncology 06/08/24 documented as of this encounter
--- OUTSIDE RECORDS SUMMARY | 2025-03-11 09:40 | XMS_ITS | Encounter Summary ---
Author [place] [address] Care Team Providers Care Pull Tab Dealer Name Role Phone Chetna Cedeno MD Primary Care Provider [phone] Arlyn Schmidt MD Unavailable [phone] Tacho Echavarria MD Unavailable [phone] Matt Ulrich MD Unavailable [phone] Eze Brock Unavailable Annette Walker Unavailable [phone] Batool Celis MD Unavailable [phone] Encounter Details Date Type Department Care Team (Late st Contact Info) Description 01/18/2025 Telephone Cancer Care Medical Oncology [place], [place] [phone] Tacho Echavarria MD [address] [place] [address] [phone] Social History Tobacco Use Types Packs/Day Years [...] from your doctor or pharmacy? Never 11/07/2023 [facility] Utilities Answer Date Recorded In [...] Date Recorded PHQ-2 Total Score 5 07/07/2024 [facility] [place] of Occupat ional Health - Occupational Stress [...] a senior living (including now)? No 11/07/2023 [facility] IP Transportation Answer D [...] her apartment. Letter created and sent through [facility] documented in this encounter Plan of Treatment Upcoming Encounters Date Type Department Care Team (Late st Contact Info) Description 04/29/2025 9:15 AM EDT Appointment [place] [address] Batool Celis MD [address] [place] [address] CANCER CARE [place], [place] [phone] 05/19/2025 2:15 PM EST Office Visit [facility] [place] [address] [facility] [address] [place] [address] Sin Tran MD [address] [place] [address] 06/09/2025 12:45 PM EST Procedure visit [facility] [address] [facility] [address] [place] [address] Samm Ledesma, RADIO MESSAGE ROUTER [address] [facility] [address] [facility] [address] [place] [address] 08/12/2025 10:40 AM EST Appointment [facility] Women's Wellness [place] [address] [facility] [address] [place] [address] Matt Ulrich MD [address] [place] [address] [address] [place] [address] documented as of this encounter Goals [...] for any unusual or concerning findings. Breast [facility] Breast Health On track(2024 11:27 AM [...] documented as of this encounter Care Teams Pull Tab Dealer Relationship Specialty [place] [address] [address] [place] [address] PCP - General 06/21/10 03/08/25 Arlyn Schmidt MD [address] [place] [address] Consulting Physician Internal Medicine-Endocrinology, Diabetes & Metabolism 11/28/20 Tacho Echavarria MD 1 [place] [address] Internal Medicine-Medical Oncology 11/12/23 Matt Ulrich MD 1 [place] [address] Surgery-Surgical Oncology 12/04/23 Eze Brock Pastoral Care 12/13/23 Annette Walker, REGISTERED NURSE OBSTETRICS Welder Machine Operator 05/13/24 Batool Celis MD 1 [facility] [place] [address] Radiation Oncologist Radiology-Radiation Oncology 06/08/24 documented as of this encounter
--- OUTSIDE RECORDS SUMMARY | 2025-03-11 09:40 | XMS_ITS | Encounter Summary ---
Author Organization [place] [address] Care Team Providers Care Registration Clerk Name Role Phone Chetna Cedeno MD Primary Care Provider [phone] Arlyn Schmidt MD Unavailable [phone] Tacho Echavarria MD Unavailable [phone] Matt Ulrich MD Unavailable [phone] Eze Brock Unavailable Annette Walker Unavailable [phone] Batool Celis MD Unavailable [phone] Encounter Details Date Type Department Care Team (Late st Contact Info) Description 01/11/2025 Orders Only Cancer Care Medical Oncology [place], [place] [phone] Tacho Echavarria MD [address] [place] [address] [id number] Social History Tobacco Use Types Packs/Day Years [...] Date Recorded PHQ-2 Total Score 5 07/07/2024 [facility] of Occupat ional Health - [...] in a long-term (including now)? No 11/07/2023 [facility] IP [...] EDT Appointment [place] [address] Batool Celis MD [address] [place] [address] [place] [address] 05/19/2025 2:15 PM EST Office Visit [address] [facility] [address] [place] [address] Sin Tran MD [address] [place] [address] 06/09/2025 12:45 PM EST Procedure visit [facility] [address] [facility] [address] [place] [address] Samm Ledesma APRN [address] [facility] [address] [place] [address] 08/12/2025 10:40 AM EST Appointment [facility] Women's Wellness [facility] [place] [address] Matt Ulrich MD [address] [place] [address] 254 [place] [address] documented as of this encounter [...] documented as of this encounter Care Teams Registration Clerk Relationship Specialty [place] [address] [place] [address] PCP - General 06/21/10 03/08/25 Arlyn Schmidt MD [address] [place] [address] Consulting Physician Internal Medicine-Endocrinology, Diabetes & Metabolism 11/28/20 Tacho Echavarria MD 1 [place] [address] Internal Medicine-Medical Oncology 11/12/23 Matt Ulrich MD 1 [place] [address] Surgery-Surgical Oncology 12/04/23 Eze Brock Pastoral Care 12/13/23 Annette Walker, TERRA COTTA ROOFER HELPER Sheet Rock Installation Helper 05/13/24 Batool Celis MD [address] [place] [address] [place] [address] Radiation Oncologist Radiology-Radiation Oncology 06/08/24 documented as of this encounter
--- OUTSIDE RECORDS SUMMARY | 2025-03-11 09:41 | XMS_ITS | Clinical Summary ---
Author Organization [facility] Address [address] [place], [place] [address] Phone Care Team Providers Care Medical Assistant Instructor Name Role Phone Arlyn Schmidt MD Unavailable [phone] Tacho Echavarria MD Unavailable [phone] Matt Ulrich MD Unavailable [phone] Eze Brock Unavailable Annette Walker CERTIFIED REGISTERED NURSE ANESTHETIST Unavailable [phone] Batool Celis MD Unavailable [phone] Ayush Marrero MD Primary Care Provider [phone] Allergies Active Allergy Reactions Criticality Noted Date [...] (AEROCHAMBER MV) Mis Spacer 1 Each by [facility].(Non-Drug; Combo Route) route as needed. 1 Device 11/18/19 20 Active tiZANidine (ZANAFLEX) 4 mg Oral TabletIndicatio ns:Chronic migraine without aura, intractable, with status migrainosus Take 1 tab nightly for cervicogenic headache and 1/2 tab daily prn for breakthrough pain. DO NOT TAKE AND DRIVE 45 Tablet 5 11/16/19 23 Active MAGIC MOUTHWASH (LIDO/DIPHEN/NY STAT) ORAL COMPOUNDIndicat ions:Mucositis Swish and Swallow 15 mL by mouth every 3 to 4 hours as needed for Other. This is a compounded RX (Nystatin Susp 200ml, Diphenhydramine 170ml, Lidocaine 2% 50ml, Maldonado syrup 30ml) 450 mL 1 4 6:05 PM EDT 12/09/19 24 Active dicyclomine (BENTYL) 10 mg Oral CapsuleIndicati ons:Abdominal cramps Take 1 Capsule by mouth 3 times daily. for abdominal cramps 30 Capsule 04/07/20 24 Active Meclizine (ANTIVERT) 50 mg Oral TabletIndicatio ns:Nausea,Verti go Take 50 mg by mouth 2 times daily. for vertigo x 3 days 6 Tablet 04/07/20 24 Active BOTOX 200 unit Inj Recon Soln 05/15/20 24 Active LORazepam (ATIVAN) 0.5 mg Oral TabletIndicatio [...] Wheezing. 1 Each 07/03/20 24 Active fluticasone furoate-vilante roL (BREO ELLIPTA) 200-25 mcg/dose Inhl Disk with DeviceIndicatio ns:Mild intermittent asthma, unspecified whether complicated Inhale 1 Puff into the lungs daily. 1 Each 07/03/20 24 Active fluticasone propionate (FLONASE) 50 mcg/actuation Nasl Carlton, Suspension 1 Carlton by Nasal route daily. 1 Each 07/03/20 [...] 25 Active anastrozole (ARIMIDEX) 1 mg Oral TabletIndicatio ns: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) Take 1 Tablet by mouth daily. 90 Tablet 3 5 1:18 PM EDT 10/09/19 25 Active ondansetron (ZOFRAN-ODT) 8 mg Oral Tablet, Rapid DissolveIndicat ions:Chemothera py-induced nausea Take 1 Tablet by mouth every 8 hours as needed for Nausea. 60 Tablet 1 10/30/19 25 Active promethazine-de xtromethorphan (PROMETHAZINE-D M) 6.25-15 mg/5 mL Oral SyrupIndication s:Acute bacterial sinusitis Take 5 mL by mouth 3 times daily as needed. No driving 100 mL 11/10/19 25 Active ARIPiprazole (ABILIFY) 5 mg Oral TabletIndicatio ns:Severe episode of recurrent major depressive disorder, without psychotic features (HCC),KAYODE (generalized anxiety disorder) Take 1 Tablet by mouth daily. 30 Tablet 1 11/19/19 25 Active abemaciclib (VERZENIO) 100 mg Oral TabletIndicatio ns: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),Chemother apy-induced nausea Take 1 Tablet by mouth 2 times daily. 56 Tablet 4 5 2:43 PM EDT 12/11/19 25 Active rOPINIRole (REQUIP) 0.25 mg Oral TabletIndicatio ns:Restless leg syndrome Take 1 Tablet by mouth nightly as needed. for up to 30 days. 30 Tablet 5 12/30/19 25 Active losartan (COZAAR) 50 mg Oral TabletIndicatio [...] 5 2:53 PM EDT 01/16/20 25 Active lidocaine-prilo shauna (EMLA) Top CreamIndication s:Invasive ductal carcinoma of breast, female, right (HCC) APPLY DIME SIZE AMOUNT TO PORT AREA 30 MINUTES PRIOR TO PORT ACCESS. 30 g 1 01/19/20 25 Active atogepant 60 mg Oral Tablet Take 1 Tablet by mouth daily. 30 Tablet 5 5 2:43 PM EDT 02/03/20 25 Active rimegepant (NURTEC ODT) 75 mg Oral Tablet, Rapid Dissolve Dissolve 1 tablet in mouth at migraine onset (Max dose 75 mg/24 hours) 8 Tablet 5 5 2:43 PM EDT 02/03/20 25 Active exemestane (AROMASIN) 25 mg Oral TabletIndicatio ns:Invasive ductal carcinoma of breast, female, right (HCC),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),Right breast cancer with T3 tumor, >5 cm in greatest dimension (HCC) Take 1 Tablet by mouth daily. 90 Tablet 02/09/20 25 Active abemaciclib (VERZENIO) 50 mg Oral TabletIndicatio ns: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) Take 1 Tablet by mouth 2 times daily. 56 Tablet 1 5 3:46 PM EDT 12/02/19 25 025 Discontin ued(Dose adjustmen t) Hospital, Clinic, or Other Facility Administered Medication Ordered Dose Route Frequency Start Date End Date Status botulinum toxin type A (BOTOX) injection 155 UnitsIndications:Chronic migraine without aura, intractable, with status migrainosus 155 Units IM ONCE 03/10/2025 03/10/2025 Ended Active Problems Patient Care Coordination No te Formatting of this note migh t be different from the original. [facility] - Sin Tran MD Controlled [...] or Functional capacity documented (EVERY VISIT)01/03/2022 Pharmacy: [address] [phone] [facility] [phone] AIS POA: 02/10/2025 josh as expected #[id number] Josh 08-05-2018 adm Josh 08-14-18 adm UDS 08-08-18 adm Care gap audit completed by Medina White RN on 01/01/2022. 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 uses Voxie as directed by me. Asthma 12/20/2010 03/26/2022 Encounters * This document contains information received from the source organization and may not represent a complete record from that organization. Date Type Department Care Team Description 03/10/2025 1:30 PM EDT Procedure visit [facility] [address] [place] [address] Krissy Rhodes APRN Chronic migraine without aura, intractable, with status migrainosus (Primary Dx) Discharge Disposition: Home or Self Care 03/09/2025 Telephone [facility] [place] [address] Tacho Echavarria MD 03/04/2025 Orders Only [facility] [place], [place] [id number] Tacho Echavarria MD Invasive ductal carcinoma of breast, female, right (HCC) (Primary Dx) 03/04/2025 Telephone [facility] [address] [place] [address] Linda Osborne MD Medication Refill 03/02/2025 Telephone [facility] Diabetes Shell [address] [facility] [address] [place] [address] Arlyn Schmidt MD Paperwork/forms (paperwork received from [facility]) 02/26/2025 Specialty Pharmacy [facility] [address] [place] [address] Charlotte Martino, [facility] Migraine Medication Management (Qulipta/Nurtec) 02/25/2025 Specialty Pharmacy [facility] [address] [place] [id number] Annette Renee, [facility] Oncology Management (Abemaciclib) 02/15/2025 Telephone [facility] [place] [address] Tacho Echavarria MD 02/12/2025 Telephone [facility] [place] [address] Eze Rowland MD Follow-up (Updated form, loan deferment form ) 02/10/2025 10:30 AM EDT Office Visit [place] [address] [place] [address] Sin Tran MD Chronic pain syndrome (Primary Dx); Post laminectomy syndrome 02/10/2025 Patient Outreach [facility] [place] [address] Tacho Echavarria MD Oncology Nurse Navigation 02/10/2025 Orders Only [facility] [place] [place] [address] Shilpa Cline RN 02/08/2025 Refill [facility] [place] [id number] Tacho Echavarria MD Medication Refill 02/05/2025 Telephone [facility] [place] [id number] Tacho Echavarria MD Symptom Call (lightheaded / headache ) 02/05/2025 Telephone [facility] [place] [phone] Narda Vickers, Clerical Staff Integrative Oncology Referral 02/05/2025 Telephone [facility] [address] [place] [address] Chtena Cedeno MD Other () 02/04/2025 2:03 PM EDT - 02/04/2025 11:59 PM EDT Hospital Encounter [facility] [place] [phone] Tacho Echavarria MD Invasive ductal carcinoma of breast, female, right (HCC) (Primary Dx); Chemotherapy follow-up examination; Encounter for monitoring aromatase inhibitor therapy; Vitamin D deficiency; Port-A-Cath in place; Reactive depression Discharge Disposition: Home or Self Care 02/04/2025 1:48 PM EDT - 02/04/2025 2:02 PM EDT Hospital Encounter [place] [address] Tacho Echavarria MD Invasive ductal carcinoma of breast, female, right (HCC) (Primary Dx) Discharge Disposition: Home or Self Care 02/04/2025 11:00 AM EDT - 02/04/2025 1:47 PM EDT Hospital Encounter [facility] [address] [place] [place] [address] Tacho Echavarria MD Mosko, Mallory, PA-C Invasive ductal carcinoma of breast, female, right (HCC) (Primary Dx); Encounter for monitoring aromatase inhibitor therapy; Encounter for screening mammogram for breast cancer Discharge Disposition: Home or Self Care 02/04/2025 Social Work [facility] [address] [place] [address] Annette Walker MSW 02/04/[address] [facility] [address] [facility] Aliya Harden, Clerical Staff Appointment Needed 02/03/2025 Telephone [place] [address] [place] [phone] Sin Tran MD Other (Pain pump meds) 02/03/2025 Specialty Pharmacy [facility] [address] [place] [address] Anisa Lozoya CPhT Pharmacy Oncology Management (Abemaciclib) 02/02/2025 11:20 AM EDT Telemedicine [facility] [address] [place] [address] Samm Ledesma APRN Chronic migraine without aura, intractable, with status migrainosus (Primary Dx); Paresthesia; Invasive ductal carcinoma of breast, female, right (HCC); Pituitary lesion; Radicular syndrome of left leg Discharge Disposition: Home or Self Care 02/02/2025 Specialty Pharmacy [facility] [address] [place] [address] Kevin Chacon PharmD Pharmacy Migraine Medication Management (Nurtec) 02/01/2025 Social Work [facility] Cancer [facility] [address] [place] [address] Sonny Fleming, [facility] 02/01/2025 Telephone [facility] [place] [address] Tacho Echavarria MD Other (Currently inpatient at [facility] ) 01/29/2025 Telephone [facility] [place] [phone] Tacho Echavarria MD Symptom Call (Diarrhea, body aches, vomiting) 01/29/2025 Social Work [facility] Cancer [facility] [address] [place] [phone] Sonny Fleming, [facility] 01/29/2025 Patient Outreach [place] [address] Shilpa Cline, production control pegboard clerk Nurse Navigation 01/28/2025 Orders Only [facility] [place] [address] Tacho Echavarria MD Invasive ductal carcinoma of breast, female, right (HCC) (Primary Dx) 01/28/2025 Telephone [facility] [place] [address] Tacho Echavarria MD Patient Question (question about test result ) 01/28/2025 Specialty Pharmacy [facility] [address] [place] [address] Sheridan Arellano, plant manager Pharmacy Migraine Medication Management (Qulipta) 01/27/2025 Results Follow-Up [facility] [address] [place] [address] Benito Snell, PharmD PHARMACOGENOMIC PANEL 01/21/2025 Orders Only [facility] [address] [place], [place] [phone] Osvaldo Johnson, Clerical Staff 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) (Primary Dx) 01/18/2025 Telephone [facility] [place] [address] Tacho Echavarria MD 01/15/2025 1:30 PM EDT - 01/15/2025 11:59 PM EDT Hospital Encounter [facility] [place] [address] Tacho Echavarria MD Argent, Lillian L, APRN Hot flashes related to aromatase inhibitor therapy (Primary Dx); Vitamin D deficiency Discharge Disposition: Home or Self Care 01/15/2025 1:15 PM EDT - 01/15/2025 1:29 PM EDT Hospital Encounter [facility] [place] [address] Tacho Echavarria MD Invasive ductal carcinoma of breast, female, right (HCC) (Primary Dx); Cold sweat; Lightheaded; Shakiness Discharge Disposition: Home or Self Care 01/15/2025 11:55 AM EDT - 01/15/2025 1:14 PM EDT Hospital Encounter [facility] Physical Therapy [address] [place] [address] Kylah Lawler, PT Discharge Disposition: Home or Self Care 01/15/2025 Refill [facility] [address] [place] [address] Chetna Cedeno MD Medication Refill 01/15/2025 Refill [facility] [address] [place] [address] Samm Ledesma APRN Medication Refill 01/15/2025 Refill [facility] [place], [place] [phone] Tacho Echavarria MD Medication Refill 01/15/2025 Plan of Care Documentation [facility] Physical Therapy [address] [place] [address] 01/15/2025 Plan of Care Documentation [facility] Physical Therapy [address] [place] [phone] 01/15/2025 Telephone [facility] [place] [address] Tacho Echavarria MD Symptom Call (shakiness, light headed, cold chills, and breaking out in sweats ) 01/15/2025 Specialty Pharmacy [facility] [address] [place] [address] Annamarie Mark [facility] Migraine Medication Management (Ubrelvy) 01/14/2025 Refill [facility] [place] [address] Tacho Echavarria MD Medication Refill 01/13/2025 2:56 PM EDT - 01/13/2025 11:59 PM EDT Hospital Encounter [facility] Physical Therapy [address] [place] [phone] Shaunna Workman PT Discharge Disposition: Home or Self Care 01/13/2025 Plan of Care Documentation [facility] Physical Therapy [address] [place] [address] 01/11/2025 Orders Only [facility] [place] [phone] Tacho Echavarria MD 01/07/2025 Specialty Pharmacy [facility] [address] [place], [place] [phone] Anisa Lozoya CPhT Pharmacy Oncology Management (Abemaciclib) 01/06/2025 1:14 PM EDT - 01/06/2025 11:59 PM EDT Hospital Encounter [facility] [place] [phone] Tacho Echavarria MD Invasive ductal carcinoma of [...] EDT Hospital Encounter [place] [address] Tacho Echavarria MD Invasive ductal carcinoma of breast, female, right (HCC) (Primary Dx) Discharge Disposition: Home or Self Care 01/01/2025 Patient Outreach [facility] [address] [place] [address] Samm Ledesma APRN Botox Injection (~03/02/2025 ) 12/31/2024 Specialty Pharmacy [facility] [address] [place] [address] Annamarie Mark, [facility] Migraine Medication Management (Qulipta) 12/30/2024 Social Work [facility] [address] [facility]17 Sonny Fleming, [facility] 12/29/2024 Social Work [facility] [address] [facility]17 Annette Walker, CERTIFIED REGISTERED NURSE ANESTHETIST 12/29/2024 Orders Only [facility] [address] [place] [address] Blake Antoine, [facility] Restless leg syndrome; Essential hypertension, benign 12/29/2024 Refill [facility] [address] [place] [address] [address] [place] [address] Munir Hilton MD Medication Refill 12/29/2024 [facility]ill [facility] [address] [place] [address] Chetna Cedeno MD Medication Refill 12/29/2024 Telephone [facility] [place] [address] Tacho Echavarria MD 12/28/2024 Orders Only [place] [address] Tacho Echavarria MD 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) (Primary Dx) 12/25/2024 Specialty Pharmacy [facility] [address] [place] [address] Hilary Rivas, [facility] Pharmacy Oncology Management; Pharmacy Reassessment (abemaciclib (Verzenio)) 12/25/2024 Telephone [facility] [address] [place] [phone] Jasmin Porter RN 12/23/2024 Specialty Pharmacy [facility] [address] [place] [address] Anisa Lozoya, [facility] Migraine Medication Management (Qulipta pa renewal) 12/23/2024 Telephone [facility] [place] [phone] Tacho Echavarria MD 12/23/2024 Telephone [facility] [address] [place], [place] [phone] Tacho Echavarria MD Follow-up 12/14/2024 11:09 AM EDT - 12/14/2024 11:59 PM EDT Hospital Encounter [facility] Physical Therapy [address] [place] [address] Kylah Lawler, ALECIA Discharge Disposition: Home or Self Care 12/11/2024 Telephone [facility] Physical Therapy [address] [place] [address] Romana Bowman PTA Cancelled Appointment (Car in shop will not get done till 5 ) 12/10/2024 2:46 PM EDT - 12/10/2024 11:59 PM EDT Hospital Encounter [place] [address] Tacho Echavarria MD 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) (Primary Dx); Chemotherapy-induced nausea; Anxiety about treatment; Acquired lymphedema; Encounter for monitoring aromatase inhibitor therapy Discharge Disposition: Home or Self Care 12/10/2024 2:30 PM EDT - 12/10/2024 2:45 PM EDT Hospital Encounter [facility] [place] [phone] Tacho Echavarria MD Invasive ductal carcinoma of breast, female, right (HCC) (Primary Dx); 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) Discharge Disposition: Home or Self Care 12/10/2024 Specialty Pharmacy [facility] [address] [place] [address] Batool Smith, [facility] Pharmacy Oncology Management (Verzenio 100mg) 12/10/2024 Social Work [facility] [place] [phone] Annette Walker MSW 12/09/2024 Specialty Pharmacy [facility] [address] [place] [address] Annamarie Mark, [facility] Migraine Medication Management (Qulipta) from Last 3 Months Immunizations Immunization Administration Dates Next Due Influenza High Dose 06/25/2024, 4(Deferred: Other - patient is getting vaccine at [facility]) Influenza Vaccine Quadrivalent PF 03/27/2023,01/2015 Influenza [...] davis dilation; Surgeon: Stone Cronin MD; Location: [facility] ENDOSCOPY; Service: Endoscopy GASTRIC BYPASS SURGERY 05/01/2017 Abdomen/N/A LAPAROSCOPIC SLEEVE GASTRECTOMY ; Surgeon: Marcus Perez MD; Location: [facility] MAIN OR; Service: General [...] IMPLANT; Surgeon: Munir Hilton MD; Location: [facility] MAIN OR; Service: Pain Management Medical devices from this surgery are in the Medical Devices section. SPINE SURGERY 01/04/2021 N/A PAIN PUMP PERMANENT IMPLANT; Surgeon: Munir Hilton MD; Location: [facility] MAIN OR; Service: Pain Management Medical devices from this surgery are in the Medical Devices section. IR FLUOROSCOPY GUIDED NEEDLE PLACEMENT 01/17/2021 IR FLUOROSCOPY GUIDED NEEDLE PLACEMENT 01/17/2021 [facility] SPINE CTR IMAGING IR GUIDED INJECT TRANSFORAM EPIDUR LUMB OR SACRAL SINGLE LVL 08/03/2022 IR GUIDED INJECT TRANSFORAMINAL EPIDUR LUMB OR SACRAL SINGLE LVL 08/03/2022 Sin Tran MD [facility] SPINE CTR IMAGING BREAST BIOPSY 10/25/2023 Right 5:00 and 6:00 IR PORT PLACEMENT EQUAL OR > 5 YEARS 11/29/2023 IR PORT PLACEMENT EQUAL OR > 5 YEARS 11/29/2023 Joselito Goodwin MD [facility] IR MASTECTOMY 07/06/2024 Right Right modified radical mastectomy; Surgeon: Matt Ulrich MD; Location: [facility] MAIN OR; Service: General Medical History Medical [...] from your doctor or pharmacy? Never 11/07/2023 [employer] Answer Date Recorded In the past 12 months has [employer], [employer], or water [place] threatened to shut off services in your [...] How often do you attend chur or protestant services? 1 to 4 times [...] Score 5 07/07/2024 [facility] Occupational Stress Questionnaire Answer [...] in a long-term (including now)? No 11/07/2023 [facility] IP Transportation Answer D ate [...] [facility] [place] [phone] Batool Celis MD [address] [place] [address] [place] [address] 05/19/2025 2:15 PM EST Office Visit [facility] [address] [place] [address] [address] [place] [address] Sin Tran MD [address] [place] [address] 06/09/2025 12:45 PM EST Procedure visit [facility] [address] [facility] [address] [place] [address] Samm Ledesma APRN [address] [place] [address] 08/12/2025 10:40 AM EST Appointment [facility] [place] [address] Matt Ulrich MD [address] [place] [address] Health Maintenance Due Date Last Done Comments Hepatitis B Vaccine (1 of 3 - 19+ 3-dose series) 1986 HPV/Pap Cotest 1997 Cologuard 2012 FIT 2012 Sigmoidoscopy 2012 Virtual Colonography 2012 Annual Wellness Exam 02/17/2015 02/17/2014 Cervical Cancer Screening 11/26/2017 Pap Smear 11/26/2017 11/26/2014 (Post poned), 11/25/2012 (Postponed) Zoster (2 of 2) 11/09/2019 09/14/2019 DTaP/TDaP/Td (2 - Td or Tdap) 08/25/2024 08/25/2014 COVID-19 Vaccine ( season) 2025 05/10/2021, 10/19/2020, 09/28/2020 Influenza Vaccine (#1) 2025 4, 03/27/2023, 03/26/2022, [...] Health On track(2024 11:27 AM EDT) No Jasimn Porter, RAUL Note: Patient acknowledges understanding of [...] Julio MA Medical Devices Implanted Type Area [employer] Social Science Teacher Device Identifier Shelf Expiration Date Model / Serial / Lot Kit Acc .133in Injex Didi Baso4 Biwing Flxb Rem Tl Preld - [id number] Implanted:Qty: 1 on 02/24/2020 by Munir Hilton MD at [facility] N/A: Back [employer]:NEURO 10/28/2023 [id number] / / [id number] Neurostimulator Rechar Adapt-Stim Sure Scan Intellis - [id number] Implanted:Qty: 1 on 02/24/2020 by Munir Hilton MD at [facility] N/A: Back [employer]:NEURO 12/19/2020 [id number] / [id number] / Kit Lead Percutaneous Mri Surescan Vectris 1x8 60cm - [id number] Implanted:Qty: 1 on 02/24/2020 by Munir Hilton MD at [facility] N/A: Back [employer]:NEURO 09/09/2023 [id number] / / [id number] Kit Lead Percutaneous Mri Surescan Vectris 1x8 60cm - [id number] Implanted:Qty: 1 on 02/24/2020 by Munir Hilton MD at [facility] N/A: Back [employer]:NEURO 10/08/2023 [id number] / / [id number] Device Suturing Mechanical Fixate Tissue Band - [id number] Implanted:Qty: 1 on 02/24/2020 by Munir Hilton MD at [facility] N/A: Back [employer]:NEUROMODULA TION 02/03/2024 - / / [id number] Device Suturing Mechanical Fixate Tissue Band - [id number] Implanted:Qty: 1 on 02/24/2020 by Munir Hilton MD at [facility] N/A: Back [employer]:NEUROMODULA TION 02/03/2024 - / / [id number] Envelope Absorbable Tyrx Polyarylate Medium 2.7in X 2.5in - [id number] Implanted:Qty: 1 on 02/24/2020 by Munir Hiltno MD at [facility] N/A: Back [employer]:NEURO 12/03/2020 [id number] / / [id number] Device Sut Fixate Anchr Ld Tiss Bnd [id number] - [id number] Implanted:Qty: 1 on 01/04/2021 by Munir Hilton MD at [facility] N/A: Back [employer]:NEUROMODULA TION [id number] 10/25/2024 - / / [id number] Cath It 1-Pc 114cm 86cm Didi 4-Lyr Sut-Ls Wool Handler Conn Lng Spin - [id number] Implanted:Qty: 1 on 01/04/2021 by Munir Hilton MD at [facility] N/A: Back [employer]:NEURO 12/10/2022 [id number] / / [id number] Pump It 2.5mm [id number] Flxb Synchromed Ii Rsvr Bk - [id number] Implanted:Qty: 1 on 01/04/2021 by Munir Hilton MD at [facility] N/A: Back [employer]:NEURO 01/02/2022 8637-20 / [id number] / Port Infs 8fr Sarah 1.6x2.6mm Xcela Pwr Inj Lpro Ti Pu-11/29/2023 Implanted:Qty: 1 on 11/29/2023 by Joselito Goodwin MD [facility] [id number] / / [id number] Procedures Procedure Name Priority Date/Time Associated Diagnosis [...] female, right (HCC) COMPREHENSIVE METABOLIC PANEL STAT 01/15/2025 1:41 PM EDT Invasive ductal carcinoma of breast, female, right (HCC) Cold sweat Lightheaded Shakiness CBC WITH DIFF STAT 01/15/2025 1:41 PM EDT Invasive ductal carcinoma of breast, female, right (HCC) Cold sweat Lightheaded Shakiness MISCELLANEOUS LAB Routine 01/06/2025 1:1 3 PM [...] 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) MM MAMMO DIGITAL STEPHANE DIAGN RIGHT Routine [...] 1,245 pg/mL 02/04/2025 4:31 PM EDT [facility] Folate 6.16 >=4.80 ng/mL 02/04/2025 4:31 PM EDT [facility] Blood VENOUS BLOOD / Unknown Venipuncture / Unknown 02/04/2025 2:03 PM EDT 02/04/2025 2:03 PM EDT Narrative [facility] - 02/04/2025 4:31 PM EDT Ingestion of haroon doses of biotin (>5 mg/day) taken within 8 hours of drawing blood sample can interfere with this immunoassay test. us Tacho Radha Echavarria MD CHEMISTRY ORDERABLES Final Result PREFERRED [facility], [facility] [address], [place] [address] * (ABNORMAL) CBC WITH DIFF (02/04/2025 2:03 PM EDT) Only the most recent of4 resultswithin the time period is included. WBC 8.1 3.7 - 10.3 x10(3)/mc L 02/04/2025 2:07 PM EDT [facility] RBC 2.95(L) 3.90 - 5.20 x10(6)/mc L 02/04/2025 2:07 PM EDT [facility] Hgb 9.4(L) 11.2 - 15.7 g/dL 02/04/2025 2:07 PM EDT [facility] Hct 28.1(L) 34.0 - 45.0 % 02/04/2025 2:07 PM EDT [facility] MCV 95.3 80.0 - 100.0 fL 02/04/2025 2:07 PM EDT [facility] MCH 31.9 26.0 - 34.0 pg 02/04/2025 2:07 PM EDT [facility] MCHC 33.5 30.7 - 35.5 g/dL 02/04/2025 2:07 PM EDT [facility] RDW 15.0(H) <=14.9 % 02/04/2025 2:07 PM EDT [facility] Platelet 163 155 - 369 x10(3)/mc L 02/04/2025 2:07 PM EDT [facility] MPV 8.8 8.8 - 12.5 fL 02/04/2025 2:07 PM EDT [facility] Neut # Prelim 5.6 1.6 - 6.1 x10(3)/mc L 02/04/2025 2:07 PM EDT [facility] Comment:Preliminary automate d absolute neutrophil count. Value may change if manual differential is indicated. Neut Percent 68.4 % 02/04/2025 2:07 PM EDT [facility] Comment:Neutrophils equals s egs plus bands Imm Gran% 0.2 % 02/04/2025 2:07 PM EDT [facility] Comment:Automated count of m etamyelocytes, myelocytes and promyelocytes. Lymph Percent 23.4 % 02/04/2025 2:07 PM EDT [facility] Lycoming Percent 5.7 % 02/04/2025 2:07 PM EDT [facility] Eos Percent 2.1 % 02/04/2025 2:07 PM EDT [facility] Baso Percent 0.2 % 02/04/2025 2:07 PM EDT [facility] Neut # 5.6 1.6 - 6.1 x10(3)/mc L 02/04/2025 2:07 PM EDT [facility] Comment:Neutrophils equals s egs plus bands IMMGRAN# 0.0 0.0 - 0.1 x10(3)/mc L 02/04/2025 2:07 PM EDT [facility] Comment:Automated count of m etamyelocytes, myelocytes and promyelocytes. An absolute IG <0.1 is reported as 0.0. Lymph # 1.9 1.2 - 3.9 x10(3)/mc L 02/04/2025 2:07 PM EDT [facility] [place] # 0.5 0.3 - 0.9 x10(3)/mc L 02/04/2025 2:07 PM EDT [facility] Eos# 0.2 0.0 - 0.5 x10(3)/mc L 02/04/2025 2:07 PM EDT [facility] Baso # 0.0 0.0 - 0.1 x10(3)/mc L 02/04/2025 2:07 PM EDT [facility] Blood VENOUS BLOOD / Unknown Venipuncture / Unknown 02/04/2025 2:03 PM EDT 02/04/2025 2:03 PM EDT Tacho Echavarria MD HEMATOLOGY ORDERABLES Final Result [facility] [address] [place] [address] * IRON+TIBC (02/04/2025 2:02 PM EDT) Only the most recent of2 resultswithin the time period is included. [facility] Iron 82 30 - 160 mcg/dL 02/04/2025 2:59 PM EDT [facility] Transferrin 279 200 - 360 mg/dL 02/04/2025 2:59 PM EDT [facility] Transferrin Saturation 21 20 - 50 % 02/04/2025 2:59 PM EDT [facility] TIBC 391 250 - 400 mcg/dL 02/04/2025 2:59 PM EDT [facility] Blood VENOUS BLOOD / Unknown Venipuncture / Unknown 02/04/2025 2:02 PM EDT 02/04/2025 2:02 PM EDT [facility] Radha Echavarria MD CHEMISTRY ORDERABLES Final Result [facility] [address] [place] [address] [facility]REFERRED [facility] [address], [place] [address] * (ABNORMAL) COMPREHENSIVE METABOLIC PANEL (02/04/2025 2:02 PM EDT) Only the most recent of4 resultswithin the time period is included. [facility] Sodium 142 136 - 145 mmol/L 02/04/2025 2:28 PM EDT [facility] Potassium 3.3(L) 3.5 - 5.0 mmol/L 02/04/2025 2:28 PM EDT [facility] Chloride 108(H) 98 - 107 mmol/L 02/04/2025 2:28 PM EDT [facility] Total CO2 19(L) 22 - 29 mmol/L 02/04/2025 2:28 PM EDT [facility] Anion Gap 15 7 - 16 mmol/L 02/04/2025 2:28 PM EDT [facility] Calcium 8.6 8.6 - 10.4 mg/dL 02/04/2025 2:28 PM EDT [facility] Glucose Lvl 134(H) 70 - 99 mg/dL 02/04/2025 2:28 PM EDT [facility] BUN 12 6 - 20 mg/dL 02/04/2025 2:28 PM EDT [facility] Creatinine 0.78 0.51 - 1.30 mg/dL 02/04/2025 2:28 PM EDT [facility] Albumin 3.8 3.5 - 5.2 gm/dL 02/04/2025 2:28 PM EDT [facility] Total Protein 6.0(L) 6.4 - 8.3 gm/dL 02/04/2025 2:28 PM EDT [facility] Bili Total 0.3 0.2 - 1.3 mg/dL 02/04/2025 2:28 PM EDT [facility] ALT 8 <=41 U/L 02/04/2025 2:28 PM EDT [facility] AST 12 <=40 U/L 02/04/2025 2:28 PM EDT [facility] Alk Phos 95 36 - 123 U/L 02/04/2025 2:28 PM EDT [facility] eGFR (CKD-EPIcr 2020) 88 >=60 mL/min/1.7 3 m2 02/04/2025 2:28 PM EDT [facility] Comment:Estimated GFR was ca lculated using the CKD-EPIcr (2020) equation refit without race. The equation is recommended by the National Kidney Foundation - [place] Society of Nephrology Task Force. Blood VENOUS BLOOD / Unknown Venipuncture / Unknown 02/04/2025 2:02 PM EDT 02/04/2025 2:02 PM EDT Tacho Echavarria MD CHEMISTRY ORDERABLES Final Result [facility] 1 [place] [address] * MISCELLANEOUS LAB (01/06/2025 1:13 PM EDT) Only the most recent of2 resultswithin the time period is included. Pathologist [facility] MISC COMMENT Tiago 01/07/2025 7:35 AM EDT [facility] Blood VENOUS STRUCTURE / Unknown Port / Unknown 01/06/2025 1:13 PM EDT 01/07/2025 7:31 AM EDT Tacho Echavarria MD HEMATOLOGY ORDERABLES Final Result [facility] 1 [place] [address] * PHARMACOGENOMIC PANEL (01/06/2025) [facility] Pharmacogenomic Lab Comments See Comment [facility] Comment:Hemizygous males and homozygous females are reported as HTR2C CC. Pharmacogenomic Lab Method See Comment [facility] Comment: This test was developed, and its performance characteristics determined by [facility], a clinical laboratory located at [address] [place] [address]. These tests have not been cleared or approved by the U.S. Food and Drug Administration. The FDA does not require this test to go through premarket FDA review. [facility] is certified under CLIA-88 and accredited by the College of [place] [employer]ologists as qualified to perform high-complexity testing. This test is approved for clinical use by the [facility] Department of Health. This test should not be regarded as investigational or for research. *Genomic DNA was analyzed by PCR using Thermo HEXIO TaqMan and/or Document Agility BHQ probe-based methods to interrogate the variant [...] are associated with more than one haplotype, [facility] infers and reports the most likely diplotype [...] Call. *The variant detection methods validated by [facility] provide >99.9% accuracy for the adult population; [...] Campus through the website or by calling [phone]. Blood 01/06/2025 01/22/2025 Narrative CLARA - 01/27/2025 This result has genomic variants that were not included in this document. us Aury Delgado MD [facility] - ORDERABLES Final Result Performing Organization Address City/State/[facility] Co de Phone Number CLARA [address] [facility] [address] [phone] * MM MAMMO DIGITAL STEPHANE DIAGN RIGHT (01/27/2024 11:20 AM EDT) Anatomical Region Laterality Modality Breast Right Mammography 01/27/2024 12:5 7 PM EDT Impressions 01/27/2024 12:57 PM EDT Incomplete-need additional imaging evaluation ([id number]) ~ RECOMMENDATION: Ultrasound of the right breast. [...] the next mammogram, in accordance with the [place] [employer] and the Society of [...] sinceprior. ~ IMPRESSION: Incomplete-need additional imaging evaluation ([id number]-2) ~ RECOMMENDATION: Ultrasound of the right breast. [...] the next mammogram, in accordance with the [place] [employer] and the Society of Breast Imaging recommendations. Jeanette Smith APRN IMG MAMMOGRAPHY ORDERABLES Final Result * GMED COLONOSCOPY (07/12/2015 2:30 PM EST) 07/12/2015 2:30 PM EST Impressions [facility] - 07/12/2015 3:30 PM [...] MD GI PROCEDURE ORDERABLES Doris mcmahon Result Performing Organization Address City/State/[facility] Co de Phone Number [facility] [address] [place] [address] from Last 3 Months or Most Recently Relevant to Health Maintenance Insurance [facility] [id number] [facility] WELLCARE OF [address] [facility] [address] Advance Directives For more information, please contact: [phone] * Full Code (Latest Code Status on File) Date Activated Date Inactivated Comments 05/01/2017 2:57 PM 05/03/2017 5:30 PM Care Teams Medical Assistant Instructor Relationship Specialty Start Date End Date Ayush Marrero MD [address] [place] [address] PCP - General Family Medicine 03/09/25 Arlyn Schmidt MD [address] [place] [address] Consulting Physician Internal Medicine-Endocrinology, Diabetes & Metabolism 11/28/20 Tacho Echavarria MD 1 [place] [address] Internal Medicine-Medical Oncology 11/12/23 Matt Ulrich MD 1 [place] [address] Surgery-Surgical Oncology 12/04/23 Eze Brock Pastoral Care 12/13/23 Annette Walker, CERTIFIED REGISTERED NURSE ANESTHETIST Division Plant Engineer 05/13/24 Batool Celis MD 1 [facility] [place] [address] Radiation Oncologist Radiology-Radiation Oncology 06/08/24
--- OUTSIDE RECORDS SUMMARY | 2025-03-11 09:41 | XMS_ITS | Encounter Summary ---
Author Organization [place] [address] Care Team Providers Care Boning Room Worker Name Role Phone Chetna Cedeno MD Primary Care Provider [phone] Arlyn Schmidt MD Unavailable [phone] Tacho Echavarria MD Unavailable [phone] Matt Ulrich MD Unavailable [phone] Eze Brock Unavailable Annette Walker Unavailable [phone] Batool Celis MD Unavailable [phone] Reason for Visit * Reason Comments Pharmacy Mig[facility] Encounter Details Date Type Department Care Team (Latest Contact Info) Description 02/02/2025 Specialty Pharmacy [facility] [address] [place] [address] Kevin Chacon PharmD Pharmacy Migraine Medication [facility] Social History Tobacco Use Types [...] th e electric, gas, oil, or water milabent threatened to shut off services in your [...] Score 5 07/07/2024 [facility] of Occupat ional Health - Occupational Stress [...] in a assisted (including now)? No 11/07/2023 [facility] IP Transportation Answer D [...] Chacon PharmD - 02/02/2025 1:39 PM EDT [facility] Prescription received for Nurtec (75mg). Prescription requires prior authorization. Will complete clinical review. Patient will not need IA if able to fill here (continuation of therapy). * Kevin Chacon PharmD - 02/02/2025 1:39 PM EDT [facility] - Migraine Clinical Review El [...] into the lungs daily. fluticasone propionate 1 [place] by Nasal route daily. Aerochamber MV 1 Each by [facility]Non-Drug; Combo Route) route as needed. [...] Monson CPhT - 02/02/2025 1:39 PM EDT [facility] Prior Authorization Submitted PA [facility] to [employer] insurance via [employer] ([place] [id number]). Will follow up on 02/04. * Annamarie Mark CPhT - 02/02/2025 1:39 PM EDT [facility] Prior Authorization Determination Received notice of PA approval for [facility] . PA approved from 02/02/2025 to 05/05/2025. Patient is able to fill at [facility]. Copay is $0. No answer, left voicemail to call [phone], option 4. Initial assessment not needed for [...] EDT Appointment [facility] [address] Batool Celis MD [address] [place] [address] CANCER CARE [place] [id number] 05/19/2025 2:15 PM EST Office Visit [facility] [address] [place] [address] [address] [place] [address] Sin Tran MD [address] [place] [address] 06/09/2025 12:45 PM EST Procedure visit [facility] [address] [facility] [address] [place] [address] Samm Ledesma APRN [address] [facility] [address] [place] [address] 08/12/2025 10:40 AM EST Appointment [facility] Women's Wellness [facility] [place] [address] Matt Ulrich MD [address] [place] [address] [address] [place] [address] documented as of this encounter [...] documented as of this encounter Care Teams Boning Room Worker Relationship Specialty [place] [address] [place] [id number] PCP - General 06/21/10 03/08/25 Arlyn Schmidt MD [address] [place] [address] Consulting Physician Internal Medicine-Endocrinology, Diabetes & Metabolism 11/28/20 Tacho Echavarria MD 1 [place], [place] [id number] Internal Medicine-Medical Oncology 11/12/23 Matt Ulrich MD 1 [place] [address] Surgery-Surgical Oncology 12/04/23 Eze Brock Pastoral Care 12/13/23 Annette Walker, SHINGLE GRADER Utilization Management Um Nurse 05/13/24 Batool Celis MD 1 [facility] [place] [address] Radiation Oncologist Radiology-Radiation Oncology 06/08/24 documented as of this encounter
--- OUTSIDE RECORDS SUMMARY | 2025-03-11 09:41 | XMS_ITS | Encounter Summary ---
Author Organization [place] [address] Care Team Providers Care Research Home Economist Name Role Phone Chetna Cedeno MD Primary Care Provider [phone] Arlyn Schmidt MD Unavailable [phone] Tacho Echavarria MD Unavailable [phone] Matt Ulrich MD Unavailable [phone] Eze Brock Unavailable Annette Walker AUTOMOTIVE ACCESSORY INSTALLER Unavailable [phone] Batool Celis MD Unavailable [phone] Ayush Marrero MD Primary Care Provider [phone] Reason for Visit * Reason Comments Pharmacy Oncology Management Abemaciclib Encounter Details Date Type Department Care Team (Latest Contact Info) Description 02/25/2025 Specialty Pharmacy [facility] [address] [place] [address] Annette Renee CPhT Pharmacy Oncology [...] Recorded PHQ-2 Total Score 5 07/07/2024 [facility] of Occupat ional Health - Occupational [...] in a alf (including now)? No 11/07/2023 [facility] [address] IP Transportation Answer D ate Recorded [...] EDT Specialty Pharmacy Refill Coordination Note Contacted Meri Cole today regarding refills of Abemaciclib. Copay amount: $0.00 Spoke with patient. Patient stated that she is no longer going to be seeing Dr Echavarria, she is now going to be seeing Dr. Rowan. Has biopsy schedule * Anisa Lozoya CPhT - 02/25/2025 10:28 AM EDT Specialty Pharmacy Refill Coordination Note Contacted Meri Cole today regarding refills of Abemaciclib . Copay amount: $0 Spoke with patient. connection was really bad and unable to hear eachother. Will call back later. * Anisa Lozoya CPhT - 02/25/2025 10:28 AM EDT Specialty Pharmacy Refill Coordination Note Contacted Meri Cole today regarding refills of Abemaciclib . Medication to be picked up on 03/10. Copay amount: $0 Spoke with patient. Patient informed of copay. * Medhat Stover RP - 02/25/2025 10:28 AM EDT [facility] - Care Plan and Refill Review Refill questions and refill history verified. Last assessment 12/25/24. No reassessment needed at this time. Medhat Stover RPH Specialty Pharmacist documented in this encounter Plan of Treatment Upcoming Encounters Date Type Department Care Team (Late st Contact Info) Description 04/29/2025 9:15 AM EDT Appointment [place] [address] Batool Celis MD [address] [place] [address] [place] [address] 05/19/2025 2:15 PM EST Office Visit [facility] [address] [facility] [address] [place] [address] Sin Tran MD [address] [place] [address] 06/09/2025 12:45 PM EST Procedure visit [facility] [address] [facility] [address] [place] [address] Samm Ledsema APRN [address] [facility] [facility] [address] [place] [address] [place] [address] 08/12/2025 10:40 AM EST Appointment [facility] Women's Wellness [facility] [place] [address] Matt Ulrich MD [address] [place] [address] [address] [place] [address] documented as of this encounter [...] documented as of this encounter Care Teams Research Home Economist Relationship Specialty [place] [address] [place] [address] PCP - General 06/21/10 03/08/25 Ayush Marrero MD [address] [place] [address] PCP - General Family Medicine 03/09/25 Arlyn Schmidt MD [address] [place] [address] Consulting Physician Internal Medicine-Endocrinology, Diabetes & Metabolism 11/28/20 Tacho Echavarria MD 1 [place] [address] Internal Medicine-Medical Oncology 11/12/23 Matt Ulrich MD 1 [place] [address] Surgery-Surgical Oncology 12/04/23 Eze Brock Pastoral Care 12/13/23 Annetet Walker, AUTOMOTIVE ACCESSORY INSTALLER Color Room Attendant 05/13/24 Batool Celis MD 1 [place] [address] Radiation Oncologist Radiology-Radiation Oncology 06/08/24 documented as of this encounter
--- OUTSIDE RECORDS SUMMARY | 2025-03-11 09:41 | XMS_ITS | Encounter Summary ---
Author Organization [facility] [place] [address] Care Team Providers Care Brim Pouncer Name Role Phone Chetna Cedeno MD Primary Care Provider [phone] Arlyn Schmidt MD Unavailable [phone] Tacho Echavarria MD Unavailable [phone] Matt Ulrich MD Unavailable [phone] Eze Brock Unavailable Cheryl Nair RN Unavailable [phone] Annette Walker EXERCISE PLANNER Unavailable [phone] Batool Celis MD Unavailable [phone] Ayush Marrero MD Primary Care Provider [phone] Encounter Details Date Type Department Care Team (Late st Contact Info) Description 10/27/2024 Orders Only [facility] Physical Therapy [place] [address] [place] [address] [address] [place] [address] Shaunna Workman PT Social History [...] in a usp (including now)? No 11/07/2023 [facility] IP Transportation Answer D [...] EDT Appointment [place] [address] Batool Celis MD [address] [place] [address] [place] [address] 05/19/2025 2:15 PM EST Office Visit [facility] [address] [place] [address] [address] [place] [address] Sin Tran MD [address] [place] [address] 06/09/2025 12:45 PM EST Procedure visit [facility] [address] [facility] [address] [place] [address] Samm Ledesma APRN [address] [facility] [address] [place] [address] 08/12/2025 10:40 AM EST Appointment [facility] Women's Wellness [facility] [place] [address] Matt Ulrich MD [address] [place] [address] [address] [place] [id number] documented as of this encounter Goals Goal [...] documented as of this encounter Care Teams Brim Pouncer Relationship Specialty [place] [address] [place] [id number] PCP - General 06/21/10 03/08/25 Ayush Marrero MD [address] [place] [address] PCP - General Family Medicine 03/09/25 Arlyn Schmidt MD [address] [place] [address] Consulting Physician Internal Medicine-Endocrinology , Diabetes & Metabolism 11/28/20 Tacho Echavarria MD 1 [place] [address] Internal Medicine-Medical Oncology 11/12/23 Matt Ulrich MD 1 [place] [address] Surgery-Surgical Oncology 12/04/23 Eze Brock Pastoral Care 12/13/23 Cheryl Nair, RN Oncology Nurse Navigator 03/25/2412/13 Annette Walker, EXERCISE PLANNER Sales Operations Associate 05/13/24 Batool Celis MD 1 [facility] [place] [address] Radiation Oncologist Radiology-Radiation Oncology 06/08/24 documented as of this encounter
--- OUTSIDE RECORDS SUMMARY | 2025-03-11 09:41 | XMS_ITS | Encounter Summary ---
Author Organization [place] [address] Care Team Providers Care Camera Assembler Name Role Phone Kit Cedeno MD Primary Care Provider [phone] Arlyn Schmidt MD Unavailable [phone] Cheryl Nair RN Unavailable [phone] Tacho Echavarria MD Unavailable [phone] Matt Ulrich MD Unavailable [phone] Hilary Clemens RN Unavailable Unavaila Eze Caro Unavailable Shila Albrecht RN Unavailable Unavail able Cheyanne To RN Unavailable Unavailabl Rayna Wong RN Unavailable Unavailab Shilpa Olivarez RN Unavailable [phone] Tulio Duong RN Unavailable Unavailable Yaquelin Weaver RN Unavailable Unavailable Pam Wang RN Unavailable Unavailable Jazmín Nair RN Unavailable Unavailable Fidel Rainey RN Unavailable Unavailable Cheryl Nair RN Unavailable [phone] Ophelia Lala RN Unavailable Glo Lee RN Unavailable Unavailab Sanam Evans CORRECTIONAL CASEWORK SPECIALIST Unavailable Unavailable Hilary Clemens RN Unavailable Unavaila Ruthy Clayton RN Unavailable Unavailable Rayna Partida RN Unavailable Unavailab Artur Nelson RN Unavailable Unavailable Annette Walker CORRECTIONAL CASEWORK SPECIALIST Unavailable [phone] Emmie Crain RN Unavailable Unavailable Brigida Enriquez RN Unavailable Unavailable Fidel Rainey RN Unavailable Unavailable Batool Celis MD Unavailable [phone] Ayush Marrero MD Primary Care Provider [phone] Encounter Details Date Type Department Care Team (Late st Contact Info) Description 10/25/2023 Orders Only [facility] One [facility] [place] [address] Diane Ellis MD 1 [place] [address] Social History Tobacco Use Types [...] EDT Appointment [facility] [place] [address] Batool Celis MD [address] [place] [address] CANCER CARE [place], [place] [id number] 05/19/2025 2:15 PM EST Office Visit [address] [place] [address] Sin Tran MD [address] [place] [address] 06/09/2025 12:45 PM EST Procedure visit [facility] [address] [facility] [address] [place] [address] Samm Ledesma APRN [address] [facility] [address] [place] [address] 08/12/2025 10:40 AM EST Appointment [facility] Women's Wellness [place] One [facility] [place] [id number] Matt Ulrich MD [address] [place] [address] [place] [address] documented as of this encounter Goals Goal Patient Goal Type Associated Problems Recent Progress Patient-Stated? Author Blood Pressure < 140/90 Blood Pressure 121/77(2024 2:04 PM EDT) No Kit Cedeno MD Maintain a healthy diet, exercise regularly and maintain an ideal body weight General No Sanam Julio MA documented as of this encounter Procedures Procedure Name Priority Date/Time Associated Diagnosis Comments NEOGENOMICS HER2 BREAST Routine 10/25/2023 10:44 AM EDT documented in this encounter Results * NEOGENOMICS HER2 BREAST (10/25/2023 10:44 AM EDT) 10/25/2023 10:4 4 AM EDT Narrative [facility] - 11/11/2023 2:42 PM EDT Requesting Provider: KIT Womack Specimen = [id number] us Diane Ellis MD PATHOLOGY ORDERABLES Final Resul t [facility] 1 [place] [id number] documented in this encounter Visit Diagnoses Not on filedocumented in this encounter Additional Health Concerns Infection Onset Date Last Indicated Resolved Time COVID-19 09/04/2024 09/04/2024 09/24/2024 10:1 2 PM EDT documented as of this encounter Care Teams Camera Assembler Relationship Specialty [place] [address] [place] [address] PCP - General 06/21/10 03/08/25 Ayush Marrero MD [address] [place] [address] PCP - General Family Medicine 03/09/25 Arlyn Schmidt MD [address] [place] [address] Consulting Physician Internal Medicine-Endocrinolog y, Diabetes & Metabolism 11/28/20 Cheryl Nair, RN Oncology Nurse Navigator 10/29/2302/05 Tacho Echavarria MD 1 [place] [address] Internal Medicine-Medical Oncology 11/12/23 Matt Ulrich MD 1 [place] [address] Surgery-Surgical Oncology 12/04/23 Hilary Clemens, RN Registered [...] Nurse Infusion Therapy 02/20/24 02/20/24 Jazmín Nair, RAUL Registered Nurse Infusion Therapy 02/27/24 02/27/24 Fidel Rainey, RN Registered Nurse Infusion Therapy 03/05/24 03/05/24 Cheryl Nair, RN Oncology Nurse Navigator 03/25/2412/13 Ophelia Lala, RN Registered Nurse Infusion Therapy 03/27/24 03/27/24 Glo Lee, RN Registered Nurse Infusion Therapy 04/03/24 04/03/24 Sanma Murray, [facility] Barrel Polisher 04/10/24 07/30/24 Hilary Clemens, RN Registered Nurse Infusion Therapy 04/21/24 04/21/24 Ruthy Walker RN Registered Nurse Infusion Therapy 04/24/24 04/24/24 Rayna Partida, RN Registered Nurse Infusion Clinic 05/01/24 05/01/24 Artur Roberts RN Registered Nurse Infusion Therapy 05/07/24 05/07/24 Annette Walker, [facility] Barrel Polisher 05/13/24 Emmie Crain, RN Registered Nurse Infusion Therapy 05/14/24 05/14/24 Brigida Enriquez, RN Registered Nurse Infusion Clinic 05/21/24 05/21/24 Fidel Rainey, RN Registered Nurse Infusion Therapy 05/28/24 05/28/24 Batool Celis MD [address] [place] [address] [place] [address] Radiation Oncologist Radiology-Radiation Oncology 06/08/24 documented as of this encounter
--- OUTSIDE RECORDS SUMMARY | 2025-03-11 09:41 | XMS_ITS | Encounter Summary ---
Author Organization [place] [address] Care Team Providers Care Embedded Software Test Engineer Name Role Phone Chetna Cedeno MD Primary Care Provider [phone] Arlyn Schmidt MD Unavailable [phone] Tacho Echavarria MD Unavailable [phone] Matt Ulrich MD Unavailable [phone] Eze Brock Unavailable Cheryl Nair RN Unavailable [phone] Annette Walker HEEL COVERER MACHINE OPERATOR Unavailable [phone] Batool Celis MD Unavailable [phone] Ayush Marrero MD Primary Care Provider [phone] Encounter Details Date Type Department Care Team (Late st Contact Info) Description 10/26/2024 Orders Only [facility] Physical Therapy [place] [address] [place] [address] [address] [place] [address] Shaunna Workman PT Social History [...] any time in the past 12 m [facility], were you homeless or living in a group home (including now)? No 11/07/2023 [facility] IP Transportation Answer D [...] EDT Appointment [facility] [place] [address] Batool Celis MD [address] [place] [address] [place] [address] 05/19/2025 2:15 PM EST Office Visit [address] [place] [address] Sin Tran MD [address] [place] [address] 06/09/2025 12:45 PM EST Procedure visit [facility] [address] [facility] [address] [place] [address] Samm Ledesma, PUMP RUNNER [address] [facility] [facility] [address] [place] [address] 08/12/2025 10:40 AM EST Appointment [facility] Women's Wellness [facility] [place] [phone] Matt Ulrich MD [address] [place] [address] 254 [place] [address] documented as of this encounter [...] documented as of this encounter Care Teams Embedded Software Test Engineer Relationship Specialty [place] [address] [place] [address] PCP - General 06/21/10 03/08/25 Ayush Marrero MD [address] [place] [address] PCP - General Family Medicine 03/09/25 Arlyn Schmidt MD [address] [place] [address] Consulting Physician Internal Medicine-Endocrinology , Diabetes & Metabolism 11/28/20 Tacho Echavarria MD 1 [place] [address] Internal Medicine-Medical Oncology 11/12/23 Matt Ulrich MD 1 [facility] [place] [address] Surgery-Surgical Oncology 12/04/23 Eze Brock Pastoral Care 12/13/23 Cheryl Nair, RN Oncology Nurse Navigator 03/25/2412/13 Annette Walker, HEEL COVERER MACHINE OPERATOR Database Operator 05/13/24 Batool Celis MD 1 [facility] [place] [address] Radiation Oncologist Radiology-Radiation Oncology 06/08/24 documented as of this encounter
--- OUTSIDE RECORDS SUMMARY | 2025-03-11 09:41 | XMS_ITS | Encounter Summary ---
Author Organization [place] [address] Care Team Providers Care Learning And Development Coordinator Name Role Phone Chetna Cedeno MD Primary Care Provider [phone] Leslie Cooley DETECTIVE HOMICIDE SQUAD Unavailable UnaBatool Talley INTEGRATION DIRECTOR Unavailable Unavailab Arlyn Disla MD Unavailable [phone] Cheryl Nair RN Unavailable [phone] Tacho Echavarria MD Unavailable [phone] Matt Ulrich MD Unavailable [phone] Hilary Clemens RN Unavailable Unavaila Eze Caro Unavailable Shila Albrecht RN Unavailable Unavail able Cheyanne To RN Unavailable UnavailRayna Johnson RN Unavailable Unavailab Shilpa Olivarez RN Unavailable [phone] Tulio Duong RN Unavailable Unavailable Yaquelin Weaver RN Unavailable Unavailable Pam Wang RN Unavailable Unavailable Jazmín Nair RN Unavailable Unavailable Fidel Rainey RN Unavailable Unavailable Cheryl Nair RN Unavailable [phone] Ophelia aLla RN Unavailable Glo Lee RN Unavailable Unavailab Sanam Evans STOCK TRACER Unavailable Unavailable Hilary Clemens RN Unavailable Unavaila Ruthy Clayton RN Unavailable Unavailable Rayna Partida RN Unavailable Unavailab Artur Nelson RN Unavailable Unavailable Annette Walker STOCK TRACER Unavailable [phone] Emmie Crain RN Unavailable Unavailable Brigida Enriquez RN Unavailable Unavailable Fidel Rainey RN Unavailable Unavailable Batool Celis MD Unavailable [phone] Ayush Marrero MD Primary Care Provider [phone] Encounter Details Date Type Department Care Team (Late st Contact Info) Description 07/12/2015 Orders Only [facility] [address] [facility] [address] [place] [address] Stone Cronin MD Social History Tobacco Use [...] Appointment [facility] [place] [place] [address] Batool Celis MD [address] [place] [address] [place] [address] 05/19/2025 2:15 PM EST Office Visit [facility] [address] [facility] [address] [place] [address] Sin Tran MD [address] [place] [address] 06/09/2025 12:45 PM EST Procedure visit [facility] [address] [place] [address] Samm Ledesma, CLINICAL SERVICES MANAGER [address] [facility] [address] [place] [address] 08/12/2025 10:40 AM EST Appointment [facility] Women's Wellness [place] One [facility] [place] [address] Matt Ulrich MD [address] [place] [address] [address] [place] [address] documented as of this encounter Procedures Procedure [...] MD GI PROCEDURE ORDERABLES Doris mcmahon Result [facility] 1 [place] [address] documented in this encounter Visit Diagnoses Not [...] documented as of this encounter Care Teams Learning And Development Coordinator Relationship Specialty [place] [address] [place] [address] PCP - General 06/21/10 03/08/25 Ayush Marrero MD [address] [place] [address] PCP - General Family Medicine 03/09/25 Leslie Cooley, DETECTIVE HOMICIDE SQUAD Boiler Service Technician 01/28/19 07/15/19 Batool Myers INTEGRATION DIRECTOR Boiler Service Technician 02/13/19 07/15/19 Arlyn Schmidt MD [address] [place], [place] [address] Consulting Physician Internal Medicine-Endocrinolog y, Diabetes & Metabolism 11/28/20 Cheryl Nair, RN Oncology Nurse Navigator 10/29/2302/05 Tacho Echavarria MD 1 [place] [address] Internal Medicine-Medical Oncology 11/12/23 Matt Ulrich MD 1 [place] [address] Surgery-Surgical Oncology 12/04/23 Hilary Clemens, [...] Nurse Infusion Therapy 04/03/24 04/03/24 Sanam Murray, STOCK TRACER Boiler Service Technician 04/10/24 07/30/24 Hilary Clemens, RN Registered Nurse Infusion Therapy 04/21/24 04/21/24 Ruthy Walker RN Registered Nurse Infusion Therapy 04/24/24 04/24/24 Rayna Partida, RN Registered Nurse Infusion Clinic 05/01/24 05/01/24 Artur Roberts RN Registered Nurse Infusion Therapy 05/07/24 05/07/24 Annette Walker, STOCK TRACER Boiler Service Technician 05/13/24 Emmie Crain, RN Registered Nurse Infusion Therapy 05/14/24 05/14/24 Brigida Enriquez, RN Registered Nurse Infusion Clinic 05/21/24 05/21/24 Fidel Rainey, RN Registered Nurse Infusion Therapy 05/28/24 05/28/24 Batool Celis MD 1 [place] [address] Radiation Oncologist Radiology-Radiation Oncology 06/08/24 documented as of this encounter
--- OUTSIDE RECORDS SUMMARY | 2025-03-11 09:41 | XMS_ITS | Encounter Summary ---
Author Organization [place] [address] Care Team Providers Care Electric Screw Driver Operator Name Role Phone Chetna Cedeno MD Primary Care Provider [phone] Arlyn Schmidt MD Unavailable [phone] Tacho Echavarria MD Unavailable [phone] Matt Ulrich MD Unavailable [phone] Eze Brock Unavailable Annette Walker Unavailable [phone] Batool Celis MD Unavailable [phone] Reason for Visit * Reason Onset Date Comments Follow-up 02/12/2025 Updated form, lo an deferment form Encounter Details Date Type Department Care Team (Late st Contact Info) Description 02/12/2025 Telephone [facility] Medical Oncology [place], [place] [id number] Eze Rowland MD [address] [place] [id number] Follow-up (Updated form, loan deferment form ) [...] Date Recorded PHQ-2 Total Score 5 07/07/2024 [facility] [place] of Occupat ional Health - Occupational Stress [...] in a usp (including now)? No 11/07/2023 [facility] IP Transportation Answer D ate Recorded [...] to fill out for loan deferment via Mechanology message. documented in this encounter Plan of Treatment Upcoming Encounters Date Type Department Care Team (Late st Contact Info) Description 04/29/2025 9:15 AM EDT Appointment [place] [address] Batool Celis MD [address] [place] [address] [place] [address] 05/19/2025 2:15 PM EST Office Visit [address] [place] [address] [place] [address] [place] [address] 06/09/2025 12:45 PM EST Procedure visit [facility] [address] [facility] [address] [place] [address] Samm Ledesma APRN [address] [facility] [address] [place] [address] 08/12/2025 10:40 AM EST Appointment [facility] Women's Wellness [place] One [facility] [place] [address] Matt Ulrich MD [address] [place] [address] DR MUSA [place] [address] documented as of this encounter Goals [...] as of this encounter Care Teams Electric Screw Driver Operator Relationship Specialty [place] [address] [place] [address] PCP - General 12/15/10 9/1/25 Arlyn Schmidt MD [address] [place] [address] Consulting Physician Internal Medicine-Endocrinology, Diabetes & Metabolism 11/28/20 Tacho Echavarria MD 1 [place] [address] Internal Medicine-Medical Oncology 11/12/23 Matt Ulrich MD 1 [place] [address] Surgery-Surgical Oncology 12/04/23 Eze Brock Pastoral Care 12/13/23 Annette Walker, SPORTS NUTRITIONIST Information Security 05/13/24 Batool Celsi MD 1 [facility] [place] [address] Radiation Oncologist Radiology-Radiation Oncology 06/08/24 documented as of this encounter
--- OUTSIDE RECORDS SUMMARY | 2025-03-11 09:41 | XMS_ITS | Encounter Summary ---
Author Organization [place] [address] Care Team Providers Care National Sales Executive Name Role Phone Chetna Cedeno MD Primary Care Provider [phone] Arlyn Schmidt MD Unavailable [phone] Tacho Echavarria MD Unavailable [phone] Matt Ulrich MD Unavailable [phone] Eze Brock Unavailable Annette Walker Unavailable [phone] Batool Celis MD Unavailable [phone] Reason for Visit * Reason Comments Pharmacy Oncology Management Abemaciclib Encounter Details Date Type Department Care Team (Latest Contact Info) Description 02/03/2025 Specialty Pharmacy [facility] [address] [place] [address] Anisa Lozoya CPhT Pharmacy Oncology [...] th e electric, gas, oil, or water [employer] threatened to shut off services in [...] 07/07/2024 [facility] [place] of Occupat ional Health - Occupational Stress [...] in a assisted (including now)? No 11/07/2023 [facility] IP Transportation Answer D ate [...] Specialty Pharmacy Refill Coordination Note Contacted [facility] today regarding refills of Abemaciclib . Medication to be picked up on 02/04. Copay amount: $0 Spoke with patient. Patient informed of copay. said she is being discharged tomorrow and will shredder picker all her meds. She is unsure of supply left. * Blake Antoine RPH - 02/03/2025 11:05 AM EDT [facility] - Care Plan and Refill Review Refill questions and refill history verified. Last assessment 12/25/24. No reassessment needed at this time. Blake Antoine PharmD Specialty Pharmacist documented in this encounter Plan of Treatment Upcoming Encounters Date Type Department Care Team (Late st Contact Info) Description 04/29/2025 9:15 AM EDT Appointment [facility] [place] [address] Batool Celis MD [address] [place] [address] [place] [address] 05/19/2025 2:15 PM EST Office Visit [address] [address] Sin Tran MD [address] [facility] [place] [address] 06/09/2025 12:45 PM EST Procedure visit [facility] [address] [facility] [address] [place] [address] Samm Ledesma, PROMOTIONS MANAGER [address] [facility] [address] [place] [address] 08/12/2025 10:40 AM EST Appointment [facility] Women's Wellness [place] [facility] [place] [address] Matt Ulrich MD [address] [place] [address] [address] [place] [address] documented as of this encounter Goals Goal Patient Goal Type Associated Problems Recent Progress Patient-Stated? Author Blood Pressure < 140/90 Blood Pressure 121/77(02/04 2:04 PM EDT) No Chetna Cedeno MD Breast [facility] On track(2024 11:27 AM EDT) No Jasmin Porter, RAUL Note: Patient acknowledges understanding of new diagnosis, plan of care, available resources and how to contact Nurse Navigator with any future questions or concerns. Breast [facility] Breast [facility] Not on track(2024 11:27 AM [...] documented as of this encounter Care Teams National Sales Executive Relationship Specialty [place] [address] [place] [address] PCP - General 06/21/10 03/08/25 Arlyn Schmidt MD [address] [place] [address] Consulting Physician Internal Medicine-Endocrinology, Diabetes & Metabolism 11/28/20 Tacho Echavarria MD 1 [place], [place] [address] Internal Medicine-Medical Oncology 11/12/23 Matt Ulrich MD 1 [place], [place] [address] Surgery-Surgical Oncology 12/04/23 Eze Brock Pastoral Care 12/13/23 Annette Walker, ARACELI Filer Finish 05/13/24 Batool Celis MD 1 [facility] [place] [address] Radiation Oncologist Radiology-Radiation Oncology 06/08/24 documented as of this encounter
--- OUTSIDE RECORDS SUMMARY | 2025-03-11 09:41 | XMS_ITS | Encounter Summary ---
Author Organization [place] Address One [facility] [place] [facility] [place] [address] Care Team Providers Care Well Tender Name Role Phone Chetna Cedeno MD Primary Care Provider Arlyn Schmitd MD Unavailable [phone] Tacho Echavarria MD Unavailable Matt Ulrich MD Unavailable Eze Brock Unavailable Cheryl Nair RN Unavailable [phone] Sanam Murray U.S. SENATOR Unavailable Unavailable Annette Walker U.S. SENATOR Unavailable [phone] Batool Celis MD Unavailable [phone] Ayush Marrero MD Primary Care Provider [phone] Encounter Details Date Type Department Care Team (Late st Contact Info) Description 07/06/2024 Orders Only [facility] One [facility] [place] [address] Shilpa Tan MD [address] [place] [address] [phone] Social History Tobacco Use Types Packs/Day Years [...] your doctor or pharmacy? Never 11/07/2023 [facility] Utilities Answer Date Recorded In the [...] 5 07/07/2024 [facility] of Occupat ional [facility] - Occupational Stress Questionnaire Answer Date Recorded [...] a group home (including now)? No 11/07/2023 [facility] IP Transportation Answer [...] 07/06/2024 4:32 PM Kayla Lee RN * [place] Suicide Severity Rating Scale (Q shift for [...] Appointment [facility] One [place], [place] [address] Batool Celis MD [address] [place] [address] [facility]ER CARE CENTER [place], [place] [id number] 05/19/2025 2:15 PM EST Office Visit [facility] [address] [facility] [address] [place] [address] Sin Tran MD [address] [place] [address] 06/09/2025 12:45 PM EST Procedure visit [facility] [address] [facility] [address] [place] [address] Samm Ledesma APRN [address] [facility] [address] [place] [address] 08/12/2025 10:40 AM EST Appointment [facility] Women's Wellness [facility] [place] [address] Matt Ulrich MD [address] [place] [address] [address] [place] [id number] documented as of this encounter Goals Goal [...] 07/06/2024 12:5 1 PM EST Narrative [facility] - 09/24/2024 2:57 PM EDT Requesting Provider: MATT Womack Specimen = [id number] us Shilpa Tan MD PATHOLOGY ORDERABLES Final R esult [facility] 1 [place] [address] documented in this encounter Visit Diagnoses Not on filedocumented in this encounter Additional Health Concerns Infection Onset Date Last Indicated Resolved Time COVID-19 09/04/2024 09/04/2024 09/24/2024 10:1 2 PM EDT Assessment Noted Time PHQ-9 Depression Total Score: 12 024 12:00 PM EDT documented as of this encounter Care Teams Well Tender Relationship Specialty [place] [address] [place] [address] PCP - General 06/21/10 03/08/25 Ayush Marrero MD [address] [place] [address] PCP - General Family Medicine 03/09/25 Arlyn Schmidt MD [address] [place] [address] Consulting Physician Internal Medicine-Endocrinology , Diabetes & Metabolism 11/28/20 Tacho Echavarria MD 1 [place] [id number] Internal Medicine-Medical Oncology 11/12/23 Matt Ulrich MD 1 [place] [address] Surgery-Surgical Oncology 12/04/23 Eze Brock Pastoral Care 12/13/23 Cheryl Nair, RN Oncology Nurse Navigator 03/25/2412/13 Sanam Murray MSW Custodial Maintenance Worker 04/10/24 07/30/24 Annette Walker MSW Custodial Maintenance Worker 05/13/24 Batool Celis MD 1 [facility] [address] Radiation Oncologist Radiology-Radiation Oncology 06/08/24 documented as of this encounter
--- OUTSIDE RECORDS SUMMARY | 2025-03-11 09:41 | XMS_ITS | Encounter Summary ---
Author Organization [place] Address [facility] Sandeep [facility] [place] [address] Care Team Providers Care Solar Sales Manager Name Role Phone Chetna Cedeno MD Primary Care Provider Arlyn Schmidt MD Unavailable [phone] Tacho Echavarria MD Unavailable Matt Ulrich MD Unavailable [phone] Eze Brock Unavailable Cheryl Nair RN Unavailable [phone] Sanam Murray OUTSIDE UPHOLSTERER Unavailable Unavailable Annette Walker OUTSIDE UPHOLSTERER Unavailable Batool Celis MD Unavailable [phone] Ayush Marrero MD Primary Care Provider [phone] Encounter Details Date Type Department Care Team (Late st Contact Info) Description 07/06/2024 Orders Only [facility] [place] [address] Shilpa Tan MD [address] [place] [phone] Social History Tobacco Use Types Packs/Day Years [...] doctor or pharmacy? Never 11/07/2023 [facility] Utilities Answer Date Recorded In [...] any clubs o r organizations such as baptist groups, unions, fraternal or athletic groups, or [...] 5 07/07/2024 [facility] ional [facility] [place] - Occupational Stress Questionnaire Answer Date Recorded [...] a correction (including now)? No 11/07/2023 [facility] IP Transportation Answer D [...] 07/06/2024 4:32 PM Kayla Lee RN * [place] Suicide Severity Rating Scale (Q shift for [...] Appointment [facility] [place], [place] [id number] Batool Celis MD [address] [place] [address] [facility] [place], [place] [id number] 05/19/2025 2:15 PM EST Office Visit [facility] [address] [facility] [address] [place] [address] Sin Tran MD [address] [place] [address] 06/09/2025 12:45 PM EST Procedure visit [facility] [address] [place] [address] Samm Ledesma APRN [address] [place] [address] 08/12/2025 10:40 AM EST Appointment [facility] Women's Wellness [facility] [place] [address] Matt Ulrich MD [address] [place] [address] [address] [place] [phone] documented as of this encounter Goals Goal [...] 07/06/2024 12:5 1 PM EST Narrative [facility] - 09/24/2024 2:31 PM EDT Requesting Provider: MATT Womack Specimen = [id number] us Shilpa Tan MD PATHOLOGY ORDERABLES Final R esult [facility] 1 [place] [address] documented in this encounter Visit Diagnoses Not on filedocumented in this encounter Additional Health Concerns Infection Onset Date Last Indicated Resolved Time COVID-19 09/04/2024 09/04/2024 09/24/2024 10:1 2 PM EDT Assessment Noted Time PHQ-9 Depression Total Score: 12 024 12:00 PM EDT documented as of this encounter Care Teams Solar Sales Manager Relationship Specialty [place] [address] [place] [address] PCP - General 06/21/10 03/08/25 Ayush Marrero MD [address] [place] [address] PCP - General Family Medicine 03/09/25 Arlyn Schmidt MD [address] [place] [address] Consulting Physician Internal Medicine-Endocrinology , Diabetes & Metabolism 11/28/20 Tacho Echavarria MD 1 [place] [id number] Internal Medicine-Medical Oncology 11/12/23 Matt Ulrich MD 1 [place] [address] Surgery-Surgical Oncology 12/04/23 Eze Brock Pastoral Care 12/13/23 Cheryl Nair, RN Oncology Nurse Navigator 03/25/2412/13 Sanam Murray MSW Solutions Delivery Consultant 04/10/24 07/30/24 Annette Walker MSW Solutions Delivery Consultant 05/13/24 Batool Celis MD 1 [facility] [address] Radiation Oncologist Radiology-Radiation Oncology 06/08/24 documented as of this encounter
--- OUTSIDE RECORDS SUMMARY | 2025-03-11 09:41 | XMS_ITS | Encounter Summary ---
Author Organization [facility] [address] Care Team Providers Care Jack [employer] All Trades Name Role Phone Kit Cedeno MD Primary Care Provider [phone] Arlyn Schmidt MD Unavailable [phone] Cheryl Nair RN Unavailable [phone] Tacho Echavarria MD Unavailable [phone] Matt Ulrich MD Unavailable [phone] Hilary Clemens RN Unavailable Unavaila Eze Caro Unavailable Shila Albrecht RN Unavailable Unavail able Cheyanne To RN Unavailable Unavailabl Rayna Wong RN Unavailable Unavailab Shilpa Olivarez RN Unavailable [phone] Tulio Duong RN Unavailable Unavailable Yaquelin Weaver RN Unavailable Unavailable Pam Wang RN Unavailable Unavailable Jazmín Nair RN Unavailable Unavailable Fidel Rainey RN Unavailable Unavailable Cheryl Nair RN Unavailable [phone] Ophelia Lala RN Unavailable Glo Lee RN Unavailable Unavailab Sanam Evans CAN PILER Unavailable Unavailable Hilary Clemens RN Unavailable Unavaila Ruthy Clayton RN Unavailable Unavailable Rayna Partida RN Unavailable Unavailab Artur Nelson RN Unavailable Unavailable Annette Walker CAN PILER Unavailable [phone] Emmie Crain RN Unavailable Unavailable Brigida Enriquez RN Unavailable Unavailable Fidel Rainey RN Unavailable Unavailable Batool Celis MD Unavailable [phone] Ayush Marrero MD Primary Care Provider [phone] Encounter Details Date Type Department Care Team (Late st Contact Info) Description 10/25/2023 Orders Only [facility] One [facility] [place] [address] Diane Ellis MD 1 [place] [address] Social History Tobacco Use Types [...] Appointment [facility] [address] Batool Celis MD [address] [place] [address] CANCER CARE [place], [place] [phone] 05/19/2025 2:15 PM EST Office Visit [address] [place] [address] Sin Tran MD [address] [place] [address] 06/09/2025 12:45 PM EST Procedure visit [facility] [address] [facility] [address] [place] [address] Samm Ledesma APRN [address] [facility] [address] [address] [place] [address] 08/12/2025 10:40 AM EST Appointment [facility] Women's Wellness [place] [facility] Emilee [place] [id number] Matt Ulrich MD [address] [place] [address] documented as of this encounter [...] EDT) 10/25/2023 10:4 4 AM EDT Narrative [facility] - 11/11/2023 7:42 AM EDT Requesting Provider: KIT Womack Specimen = [id number] us Diane Ellis MD PATHOLOGY ORDERABLES Final Resul t [facility] 1 [place] [id number] documented in this encounter Visit Diagnoses Not on filedocumented in this encounter Additional Health Concerns Infection Onset Date Last Indicated Resolved Time COVID-19 09/04/2024 09/04/2024 09/24/2024 10:1 2 PM EDT documented as of this encounter Care Teams Jack Of All Trades Relationship Specialty [place] [address] [place] [address] PCP - General 06/21/10 03/08/25 Ayush Marrero MD [address] [place] [address] PCP - General Family Medicine 03/09/25 Arlyn Schmidt MD [address] [place] [address] Consulting Physician Internal Medicine-Endocrinolog y, Diabetes & Metabolism 11/28/20 Cheryl Nair, RN Oncology Nurse Navigator 10/29/2302/05 Tacho Echavarria MD [address] [place] [address] [id number] Internal Medicine-Medical Oncology 11/12/23 Matt Ulrich MD [address] [place] [address] Surgery-Surgical Oncology 12/04/23 Hilary Clemens, RN Registered [...] Nurse Infusion Therapy 04/03/24 04/03/24 Sanam Murray, [facility] Well Point Pumping Supervisor 04/10/24 07/30/24 Hilary Clemens, RN Registered Nurse Infusion Therapy 04/21/24 04/21/24 Ruthy Walker RN Registered Nurse Infusion Therapy 04/24/24 04/24/24 Rayna Partida, RN Registered Nurse Infusion Clinic 05/01/24 05/01/24 Artur Roberts RN Registered Nurse Infusion Therapy 05/07/24 05/07/24 Annette Walker, [facility] Well Point Pumping Supervisor 05/13/24 Emmie Crain, RAUL Registered Nurse Infusion Therapy 05/14/24 05/14/24 Brigida Enriquez, RN Registered Nurse Infusion Clinic 05/21/24 05/21/24 Fidel Rainey, RN Registered Nurse Infusion Therapy 05/28/24 05/28/24 Batool Celis MD [address] [place] [address] [place] [address] Radiation Oncologist Radiology-Radiation Oncology 06/08/24 documented as of this encounter
--- OUTSIDE RECORDS SUMMARY | 2025-03-11 09:41 | XMS_ITS | Encounter Summary ---
Author Organization [place] [address] Care Team Providers Care Director Community Center Name Role Phone Chetna Cedeno MD Primary Care Provider [phone] Arlyn Schmidt MD Unavailable [phone] Tacho Echavarria MD Unavailable [phone] Matt Ulrich MD Unavailable [phone] Eze Brock Unavailable Annette Walker Unavailable [phone] Batool Celis MD Unavailable [phone] Reason for Visit * Reason Onset Date Comments Other 02/01/2025 Currently inpati ent at [facility] Encounter Details Date Type Department Care Team (Late st Contact Info) Description 02/01/2025 Telephone Cancer Care Medical Oncology [place], [place] [id number] Tacho Echavarria MD [address] [place] [address] [id number] Other (Currently inpatient at [facility] ) Social History Tobacco Use Types [...] doctor or pharmacy? Never 11/07/2023 [facility] Utilities Answer Date Recorded In [...] in a fpc (including now)? No 11/07/2023 [facility] IP Transportation Answer [...] to let know she was admitted to [facility] on Saturday and is still there.Has blood clot in lung and potassium was 2.5 Preferred call back number: [phone] documented in this encounter Plan of Treatment Upcoming Encounters Date Type Department Care Team (Late st Contact Info) Description 04/29/2025 9:15 AM EDT Appointment [facility] [place] [address] Batool Celis MD [address] [place] [address] [facility] [place], [place] [id number] 05/19/2025 2:15 PM EST Office Visit [address] [address] Sin Tran MD [address] [place] [address] 06/09/2025 12:45 PM EST Procedure visit [facility] [address] [facility] [address] [place] [address] Samm Ledesma APRN [address] [place] [address] 08/12/2025 10:40 AM EST Appointment [facility] Women's Wellness [facility] [place] [address] Matt Ulrich MD [address] [place] [address] [address] [place] [address] documented as of this encounter [...] as of this encounter Care Teams Director Community Center Relationship Specialty [place] [address] [place] [address] PCP - General 06/21/10 03/08/25 Arlyn Schmidt MD [address] [place] [address] Consulting Physician Internal Medicine-Endocrinology, Diabetes & Metabolism 11/28/20 Tacho Echavarria MD [address] [place] [phone] Internal Medicine-Medical Oncology 11/12/23 Matt Ulrich MD [address] [place] [phone] Surgery-Surgical Oncology 12/04/23 Eze Brock Pastoral Care 12/13/23 Annette Walker, ARACELI Grinding Machine Operator Portable 05/13/24 Batool Celis MD 1 [facility] [place] [address] Radiation Oncologist Radiology-Radiation Oncology 06/08/24 documented as of this encounter
--- OUTSIDE RECORDS SUMMARY | 2025-03-11 09:41 | XMS_ITS | Encounter Summary ---
Author Organization [place] [address] Care Team Providers Care Manager Mba Name Role Phone Chetna Cedeno MD Primary Care Provider [phone] Arlyn Schmidt MD Unavailable [phone] Tacho Echavarria MD Unavailable Matt Ulrich MD Unavailable [phone] Eze Brock Unavailable Cheryl Nair RN Unavailable [phone] Annette Walker SOFTWARE ASSET MANAGER Unavailable [phone] Batool Celis MD Unavailable [phone] Encounter Details Date Type Department Care Team (Late st Contact Info) Description 12/07/2024 Results Follow-Up HECTOR ENDOSCOPY [address] [facility] [place] [address] King Oliva MD [address] [place] [address] PATHOLOGY TISSUE REQUEST Social History Tobacco Use [...] Recorded PHQ-2 Total Score 5 07/07/2024 [facility] Occupat ional Health - [...] in a chcf (including now)? No 11/07/2023 [facility] [...] EDT Appointment [facility] [place] [phone] Batool Celis MD [address] [place] [address] [place] [address] 05/19/2025 2:15 PM EST Office Visit [facility] [address] [place] [address] [address] [place] [address] Sin Tran MD [address] [place] [address] 06/09/2025 12:45 PM EST Procedure visit [facility] [address] [facility] [address] [place] [address] Samm Ledesma, NON DESTRUCTIVE EVALUATION TECHNICIAN [address] [facility] [address] [place], [place] [id number] 08/12/2025 10:40 AM EST Appointment [facility] Women's Wellness [facility] [place] [phone] Matt Ulrich MD [address] [place] [address] 254 [place] [address] documented as of this [...] as of this encounter Care Teams Manager Mba Relationship Specialty [place] [address] [place] [address] PCP - General 06/21/10 03/08/25 Arlyn Schmidt MD [address] [place] [address] Consulting Physician Internal Medicine-Endocrinology , Diabetes & Metabolism 11/28/20 Tacho Echavarria MD [address] [place] [address] Internal Medicine-Medical Oncology 11/12/23 Matt Ulrich MD 1 [place] [address] Surgery-Surgical Oncology 12/04/23 Eze Brock Pastoral Care 12/13/23 Cheryl Nair, RN Oncology Nurse Navigator 03/25/2412/13 Annette Walker, SOFTWARE ASSET MANAGER Tailor'S Aide 05/13/24 Batool Celis MD 1 [facility] [place] [address] Radiation Oncologist Radiology-Radiation Oncology 06/08/24 documented as of this encounter
--- OUTSIDE RECORDS SUMMARY | 2025-03-11 09:41 | XMS_ITS | Encounter Summary ---
Author [place] [address] Care Team Providers Care Frozen Foods Manager Name Role Phone Chetna Cedeno MD Primary Care Provider [phone] Arlyn Schmidt MD Unavailable [phone] Tacho Echavarria MD Unavailable [phone] Matt Ulrich MD Unavailable [phone] Eze Brock Unavailable Annette Walker HUMAN RESOURCES ANALYST Unavailable [phone] Batool Celis MD Unavailable [phone] Encounter Details Date Type Department Care Team (Late st Contact Info) Description 02/01/[address] [facility] Cancer Care [facility] [place] [address] Sonny Fleming, HUMAN RESOURCES ANALYST Social History Tobacco Use Types Packs/Day Years [...] th e electric, gas, oil, or water [employer] threatened to shut off services in your [...] Date Recorded PHQ-2 Total Score 5 07/07/2024 [facility] [place] of Occupat ional Health - Occupational Stress [...] health care facility (including now)? No 11/07/2023 [facility] IP [...] Macarena Maroin CCMA documented in this encounter Progress Notes * Sonny Fleming MSW - 02/01/2025 3:04 PM EDT 02/01/25 1504 Facility Examiner Assessment Referred By Pt. Call Disease/[place] Shellfish Dredge Operator Assignment Breast cancer Referral Location: Women???s [...] Appointment [place] [address] Batool Celis MD 1 [facility] [place] [address] 05/19/2025 2:15 PM EST Office Visit [facility] [address] [place] [address] [address] [place] [address] Sin Tran MD [address] [place] [address] 06/09/2025 12:45 PM EST Procedure visit [facility] NE[facility] [address] [place] [address] Samm Ledesma, POUNDMASTER [address] [facility] [address] [place] [address] 08/12/2025 10:[address] [facility] Women's Wellness [place] [address] Matt Ulrich MD [address] [place] [address] DR [address] [place], [place] [address] documented as of this encounter Goals Goal [...] documented as of this encounter Care Teams Frozen Foods Manager Relationship Specialty [place] [address] [place] [id number] PCP - General 06/21/10 03/08/25 Arlyn Schmidt MD [address] [place], [place] [id number] Consulting Physician Internal Medicine-Endocrinology, Diabetes & Metabolism 11/28/20 Tacho Echavarria MD 1 [place] [address] Internal Medicine-Medical Oncology 11/12/23 Matt Ulrich MD 1 [place], [place] [phone] Surgery-Surgical Oncology 12/04/23 Eez Brock Pastoral Care 12/13/23 Annette Walker, ARACELI Shellfish Dredge Operator 05/13/24 Batool Celis MD 1 [facility] CANCER CARE [place], [place] 2[address] Radiation Oncologist Radiology-Radiation Oncology 06/08/24 documented as of this encounter
--- OUTSIDE RECORDS SUMMARY | 2025-03-11 09:42 | XMS_ITS | Encounter Summary ---
Author Organization [place] [address] Care Team Providers Care Stenotype Operator Name Role Phone Kit Cedeno MD Primary Care Provider [phone] Arlyn Schmidt MD Unavailable [phone] Cheryl Nair RN Unavailable [phone] Tacho Echavarria MD Unavailable [phone] Matt Ulrich MD Unavailable [phone] Hilary Clemens RN Unavailable Unavaila Eze Caro Unavailable Shila Albrecht RN Unavailable Unavail able Cheyanne To RN Unavailable Unavailabl Rayna Wong RN Unavailable Unavailab Shilpa Olivarez RN Unavailable [phone] Tulio Duong RN Unavailable Unavailable Yaquelin Weaver RN Unavailable Unavailable Pam Wang RN Unavailable Unavailable Jazmín Nair RN Unavailable Unavailable Fidel Rainey RN Unavailable Unavailable Cheryl Nair RN Unavailable [phone] Ophelia Lala RN Unavailable Glo Lee RN Unavailable Unavailab Sanam Evans RUBBER MILL OPERATOR Unavailable Unavailable Hilary Clemens RN Unavailable Unavaila Ruthy Clayton RN Unavailable Unavailable Rayna Partida RN Unavailable Unavailab Artur Nelson RN Unavailable Unavailable Annette Walker RUBBER MILL OPERATOR Unavailable [phone] Emmie Crain RN Unavailable Unavailable Brigida Enriquez RN Unavailable Unavailable Fidel Rainey RN Unavailable Unavailable Batool Celis MD Unavailable [phone] Ayush Marrero MD Primary Care Provider [phone] Encounter Details Date Type Department Care Team (Late st Contact Info) Description 10/25/2023 Orders Only [facility] One [facility] [place] [address] Diane Ellis MD 1 [place] [address] Social History Tobacco Use Types [...] EDT Appointment [place] [address] Batool Celis MD [address] [place] [address] CANCER CARE [place], [place] [phone] 05/19/2025 2:15 PM EST Office Visit [address] [place] [address] Sin Tran MD [address] [place] [address] 06/09/2025 12:45 PM EST Procedure visit [facility] [address] [facility] [address] [place] [address] Samm Ledesma APRN [address] [facility] [address] [place] [address] 08/12/2025 10:40 AM EST Appointment [facility] Women's Wellness [place] [facility] Emilee [place] [facility] Matt Ulrich MD [address] [facility] [place] [address] documented as of this encounter [...] AM EDT Narrative [facility] - 11/01/2023 3:02 PM EDT Requesting Provider: KIT Womack Specimen = [id number] us Diane Ellis MD PATHOLOGY ORDERABLES Final Resul t [facility] 1 [place] [id number] documented in this encounter Visit Diagnoses Not on filedocumented in this encounter Additional Health Concerns Infection Onset Date Last Indicated Resolved Time COVID-19 09/04/2024 09/04/2024 09/24/2024 10:1 2 PM EDT documented as of this encounter Care Teams Stenotype Operator Relationship Specialty [place] [address] [place] [address] PCP - General 06/21/10 03/08/25 Ayush Marrero MD [address] [place] [address] PCP - General Family Medicine 03/09/25 Arlyn Schmidt MD [address] [place] [address] Consulting Physician Internal Medicine-Endocrinolog y, Diabetes & Metabolism 11/28/20 Cheryl Nair, RN Oncology Nurse Navigator 10/29/2302/05 Tacho Echavarria MD [address] [place] [address] [id number] Internal Medicine-Medical Oncology 11/12/23 Matt Ulrich MD [address] [place] [address] Surgery-Surgical Oncology 12/04/23 Hilary Clemens, RN Registered [...] Nurse Infusion Therapy 04/03/24 04/03/24 Sanam Murray, [facility] Cable Hooker 04/10/24 07/30/24 Hilary Clemens, RN Registered Nurse Infusion Therapy 04/21/24 04/21/24 Ruthy Walker RN Registered Nurse Infusion Therapy 04/24/24 04/24/24 Rayna Partida, RN Registered Nurse Infusion Clinic 05/01/24 05/01/24 Artur Roberts RN Registered Nurse Infusion Therapy 05/07/24 05/07/24 Annette Walker, [facility] Cable Hooker 05/13/24 Emmie Crain, RAUL Registered Nurse Infusion Therapy 05/14/24 05/14/24 Brigida Enriquez, RN Registered Nurse Infusion Clinic 05/21/24 05/21/24 Fidel Rainey, RN Registered Nurse Infusion Therapy 05/28/24 05/28/24 Batool Celis MD [address] [place] [address] [place] [address] Radiation Oncologist Radiology-Radiation Oncology 06/08/24 documented as of this encounter
--- OUTSIDE RECORDS SUMMARY | 2025-03-11 09:42 | XMS_ITS | Encounter Summary ---
Author Organization [place] [address] Care Team Providers Care Transonic Engineer Name Role Phone Chetna Cedeno MD Primary Care Provider [phone] Arlyn Schmidt MD Unavailable [phone] Tacho Echavarria MD Unavailable [phone] Matt Ulrich MD Unavailable [phone] Eze Brock Unavailable Annette Walker Unavailable [phone] Batool Celis MD Unavailable [phone] Reason for Visit * Reason Onset Date Comments Symptom Call 02/05/2025 lightheaded / he adache Encounter Details Date Type Department Care Team (Late st Contact Info) Description 02/05/2025 Telephone [facility] Medical Oncology [place], [place] [id number] Tacho Echavarria MD [address] [place] [address] [phone] Symptom Call (lightheaded / headache ) Social [...] [facility] of Occupat ional Health - Occupational Stress [...] No 11/07/2023 [facility] IP [...] relief. Rates 4/10. Went to ER in [facility] last week r/t diarrhea, K was 2.5 [...] seen at: [facility] Preferred call back number: [phone] Explained to the caller, if this is a medical emergency please call 911 or go to the nearest emergency room. documented in this encounter Plan of Treatment Upcoming Encounters Date Type Department Care Team (Late st Contact Info) Description 04/29/2025 9:15 AM EDT Appointment [facility] [place] [address] Batool Celis MD 1 [facility] CANCER CARE [place] [id number] 05/19/2025 2:15 PM EST Office Visit [facility] [place] [address] [place] [address] [address] [place] [address] Sin Tran MD [address] [place] [address] 06/09/2025 12:45 PM EST Procedure visit [facility] [address] [place] [address] Samm Ledesma, SEO ENGINEER [address] [facility] [address] [place] [address] 08/12/2025 10:40 AM EST Appointment [facility] Women's [facility] [place] [address] Matt Ulrich MD [address] [place] [address] [address] [place] [address] documented as of this encounter Goals Goal Patient Goal Type Associated Problems Recent Progress Patient-Stated? Author Blood Pressure < 140/90 Blood Pressure 121/77(02/04 2:04 PM EDT) No Chetna Cedeno MD Breast [facility] Breast Health On track(2024 11:27 AM EDT) No Jasmin Porter, RAUL Note: Patient acknowledges understanding of new diagnosis, plan of care, available resources and how to contact Nurse Navigator with any future questions or concerns. Breast [facility] Breast Health Not on track(2024 11:27 AM EDT) No Jasmin Porter, RAUL Note: Patient will be compliant with monthly SBE and is aware of who to contact for any unusual or concerning findings. Breast [facility] Breast Health On track(2024 11:27 AM [...] documented as of this encounter Care Teams Transonic Engineer Relationship Specialty [place] [address] [place] [address] PCP - General 06/21/10 03/08/25 Arlyn Schmidt MD [address] [place], [place] [id number] Consulting Physician Internal Medicine-Endocrinology, Diabetes & Metabolism 11/28/20 Tacho Echavarria MD 1 [place], [place] [id number] Internal Medicine-Medical Oncology 11/12/23 Matt Ulrich MD 1 [place], [place] [id number] Surgery-Surgical Oncology 12/04/23 Eze Brock Pastoral Care 12/13/23 Annette Walker, BEDSPREAD INSPECTOR Pattern Hand 05/13/24 Batool Celis MD 1 [facility] [place] [address] Radiation Oncologist Radiology-Radiation Oncology 06/08/24 documented as of this encounter
--- OUTSIDE RECORDS SUMMARY | 2025-03-11 09:42 | XMS_ITS | Encounter Summary ---
Author Organization [place] [address] Care Team Providers Care Watershed Program Manager Name Role Phone Kit Cedeno MD Primary Care Provider [phone] Arlyn Schmidt MD Unavailable [phone] Cheryl Nair RN Unavailable [phone] Tacho Echavarria MD Unavailable [phone] Matt Ulrich MD Unavailable [phone] Hilary Clemens RN Unavailable Unavaila Eze Caro Unavailable Shila Albrecht RN Unavailable Unavail able Cheyanne To RN Unavailable Unavailabl Rayna Wong RN Unavailable Unavailab Shilpa Olivarez RN Unavailable [phone] Tulio Duong RN Unavailable Unavailable Yaquelin Weaver RN Unavailable Unavailable Pam Wang RN Unavailable Unavailable Jazmín Nair RN Unavailable Unavailable Fidel Rainey RN Unavailable Unavailable Cheryl Nair RN Unavailable [phone] Ophelia Lala RN Unavailable Glo Lee RN Unavailable Unavailab Sanam Evans DRESSMAKER OR TAILOR Unavailable Unavailable Hilary Clemens RN Unavailable Unavaila Ruthy Clayton RN Unavailable Unavailable Rayna Partida RN Unavailable Unavailab Artur Nelson RN Unavailable Unavailable Annette Walker DRESSMAKER OR TAILOR Unavailable [phone] Emmie Crain RN Unavailable Unavailable Brigida Enriquez RN Unavailable Unavailable Fidel Rainey RN Unavailable Unavailable Batool Celis MD Unavailable [phone] Ayush Marrero MD Primary Care Provider [phone] Encounter Details Date Type Department Care Team (Late st Contact Info) Description 10/25/2023 Orders Only [facility] One [facility] [place] [address] Diane [place] MD 1 [place] [address] Social History Tobacco Use Types [...] Macaerna Marion CCMA documented in this encounter Plan of Treatment Upcoming Encounters Date Type Department Care Team (Late st Contact Info) Description 04/29/2025 9:15 AM EDT Appointment [facility] [place] [address] Batool Celis MD [address] [place] [address] CANCER CARE [place], [place] [id number] 05/19/2025 2:15 PM EST Office Visit [address] [place] [address] Sin Tran MD [address] [place] [address] 06/09/2025 12:45 PM EST Procedure visit [facility] [address] [facility] [address] [place] [address] Samm Ledesma APRN [address] [facility] [address] [place] [address] 08/12/2025 10:40 AM EST Appointment [facility] Women's Wellness [place] One [facility] [place] [address] Matt Ulrich MD [address] [place] [address] [place] [address] documented as of this encounter [...] EDT) 10/25/2023 10:4 4 AM EDT Narrative [facility] - 11/06/2023 7:12 PM EDT Requesting Provider: KIT Womack Specimen = [id number] us Diane [place] MD PATHOLOGY ORDERABLES Final Resul t [facility] 1 [place] [address] documented in this encounter Visit Diagnoses Not on filedocumented in this encounter Additional Health Concerns Infection Onset Date Last Indicated Resolved Time COVID-19 09/04/2024 09/04/2024 09/24/2024 10:1 2 PM EDT documented as of this encounter Care Teams Watershed Program Manager Relationship Specialty [place] [address] [place] [address] PCP - General 06/21/10 03/08/25 Ayush Marrero MD [address] [place] [address] PCP - General Family Medicine 03/09/25 Arlyn [place] MD [address] [place] [address] Consulting Physician Internal Medicine-Endocrinolog y, Diabetes & Metabolism 11/28/20 Cheryl Nair, RN Oncology Nurse Navigator 10/29/2302/05 Tacho Echavarria MD 1 [place], [place] 8[address] Internal Medicine-Medical Oncology 11/12/23 Matt Ulrich MD [address] [place] [id number] Surgery-Surgical Oncology 12/04/23 Hilary Clemens, RN Registered [...] Therapy 04/03/24 04/03/24 Sanam Murray, [facility] Civil Structural Designer 04/10/24 07/30/24 Hilary Clemens, RN Registered Nurse Infusion Therapy 04/21/24 04/21/24 Ruthy Walker RN Registered Nurse Infusion Therapy 04/24/24 04/24/24 Rayna Partida, RN Registered Nurse Infusion Clinic 05/01/24 05/01/24 Artur Roberts RN Registered Nurse Infusion Therapy 05/07/24 05/07/24 Annette Walker, [facility] Civil Structural Designer 05/13/24 Emmie Crain, RN Registered Nurse Infusion Therapy 05/14/24 05/14/24 Brigida Enriquez, RN Registered Nurse Infusion Clinic 05/21/24 05/21/24 Fidel Rainey, RN Registered Nurse Infusion Therapy 05/28/24 05/28/24 Batool Celis MD [address] [place] [address] [place] [address] Radiation Oncologist Radiology-Radiation Oncology 06/08/24 documented as of this encounter
--- OUTSIDE RECORDS SUMMARY | 2025-03-11 09:42 | XMS_ITS | Encounter Summary ---
Author [place] [address] Care Team Providers Care Cinder [place]man Name Role Phone Chetna Cedeno MD Primary Care Provider [phone] Arlyn Schmidt MD Unavailable [phone] Tacho Echavarria MD Unavailable [phone] Matt Ulrich MD Unavailable [phone] Eze Brock Unavailable Shilpa Cline RN Unavailable [phone] Cheryl Nair RN Unavailable [phone] Ophelia Lala RN Unavailable Glo Lee RN Unavailable Unavailab Sanam Evans COAL DRIER OPERATOR Unavailable Unavailable Hilary Clemens RN Unavailable Unavaila Ruthy Clayton RN Unavailable Unavailable Rayna Partida RN Unavailable Unavailab Artur Nelson RN Unavailable Unavailable Annette Walker COAL DRIER OPERATOR Unavailable [phone] Emmie Crain RN Unavailable Unavailable Brigida Enriquez RN Unavailable Unavailable Fidel Rainey RN Unavailable Unavailable Batool Celis MD Unavailable [phone] Ayush Marrero MD Primary Care Provider [phone] Encounter Details Date Type Department Care Team (Late st Contact Info) Description 03/18/2024 Lab Requisition [facility] One [facility] [place] [address] Provider, Unknown Malignant neoplasm of unspecified site [...] Date Recorded PHQ-2 Total Score 0 11/07/2023 [facility] of Occupat ional Health - Occupational [...] in a usp (including now)? No 11/07/2023 Education Answer Date [...] EDT Appointment [facility] ON[facility] [place], [place] [phone] Batool Celis MD [address] [place] [address] [place] [address] 05/19/2025 2:15 PM EST Office Visit [facility] [address] [facility] [address] [place] [address] Sin Tran MD [address] [place] [address] 06/09/2025 12:45 PM EST Procedure visit [facility] [address] [facility] [facility] [address] [place], [place] [id number] Samm Ledesma APRN [address] [facility] [address] [place], [place] [id number] 08/12/2025 10:40 AM EST Appointment [facility] Women's Wellness [facility] [place] [address] Matt Ulrich MD [address] [place] [address] 254 [place] [address] documented as of this encounter Goals Goal Patient Goal Type Associated Problems Recent Progress Patient-Stated? Author Blood Pressure < 140/90 Blood Pressure 121/77(02/04 2:04 PM EDT) No Chetna Cedeno MD Breast Health Breast Health On track(07/31/ 2025 11:27 AM EDT) Jasmin Rodriguez, RAUL Note: Patient acknowledges understanding [...] EDT) CASE REPORT Surgical Pathology Report Case: [id number] Authorizing Provider: Provider, Unknown Collected: 03/18/2024 1327 Ordering Location: [facility] Received: 03/18/2024 1327 Pathologist: Diane Ellis MD Specimen: Breast, Right, Request for case [id number] slides to [facility] Pathology. 05/04/2024 1:26 PM EDT [facility] FINAL DIAGNOSIS Results will be scanned in this case as an addendum. 05/04/2024 1:26 PM EDT [facility] at 1329 EDT EMBEDDED IMAGES 05/04/2024 1:26 PM EDT [facility] ADDENDUM Refer to Scanned [facility] Surgical Pathology Report. 05/04/2024 1:26 PM EDT [facility] Addendum electronically signed by Diane Ellis MD on 05/04/2024 at 1326 EDT Tissue RIGHT BREAST STRUCTURE / Unknown 03/18/2024 1:27 PM EDT 03/18/2024 1:27 PM EDT us Unknown Provider PATHOLOGY ORDERABLES Edited Res ult - Final [facility] 1 [place], [place] [id number] documented in this encounter Visit Diagnoses Diagnosis Malignant neoplasm of unspecified site of right female breast (HCC) documented in this encounter Additional Health Concerns Infection Onset Date Last Indicated Resolved Time COVID-19 09/04/2024 09/04/2024 09/24/2024 10:1 2 PM EDT Assessment Noted Time PHQ-9 Depression Total Score: 12 024 12:00 PM EDT documented as of this encounter Care Teams Cinder [place] Relationship Specialty [place] [address] [place] [address] PCP - General 06/21/10 03/08/25 Ayush Marrero MD [address] [place] [address] PCP - General Family Medicine 03/09/25 Arlyn [place] MD [address] [place], [place] [address] Consulting Physician Internal Medicine-Endocrinolog y, Diabetes & Metabolism 11/28/20 Tacho Echavarria MD 1 [place], [place] 96[address] Internal Medicine-Medical Oncology 11/12/23 Matt Ulrich MD [address] [place] [address] 93453[address] Surgery-Surgical Oncology 12/04/23 Eze Brock Pastoral Care 12/13/23 Shilpa Cline, RAUL Oncology Nurse Navigator 02/04/2403/09 Cheryl Nair, RN Oncology Nurse Navigator 03/25/2412/13 Ophelia Lala, RN Registered Nurse Infusion Therapy 03/27/24 03/27/24 Glo Lee, RN Registered Nurse Infusion Therapy 04/03/24 04/03/24 Sanam Murray, COAL DRIER OPERATOR [employer] Production Line 04/10/24 07/30/24 Hilary Clemens, RN Registered Nurse Infusion Therapy 04/21/24 04/21/24 Ruthy Walker RN Registered Nurse Infusion Therapy 04/24/24 04/24/24 Rayna Partida RN Registered Nurse Infusion Clinic 05/01/24 05/01/24 Artur Roberts RN Registered Nurse Infusion Therapy 05/07/24 05/07/24 Annette Walker, COAL DRIER OPERATOR [employer] Production Line 05/13/24 Emmie Crain, RN Registered Nurse Infusion Therapy 05/14/24 05/14/24 Brigida Enriquez, RN Registered Nurse Infusion Clinic 05/21/24 05/21/24 Fidel Rainey, RN Registered Nurse Infusion Therapy 05/28/24 05/28/24 Batool Celis MD [address] [place] [address] [place] [address] Radiation Oncologist Radiology-Radiation Oncology 06/08/24 documented as of this encounter
--- OUTSIDE RECORDS SUMMARY | 2025-03-11 09:42 | XMS_ITS | Encounter Summary ---
Author [place] [address] Care Team Providers Care Hemming And Tacking Machine Operator Name Role Phone Chetna Cedeno MD Primary Care Provider [phone] Arlyn Schmidt MD Unavailable [phone] Tacho Echavarria MD Unavailable [phone] Matt Ulrich MD Unavailable [phone] Eze Brock Unavailable Annette Walker Unavailable [phone] Batool Celis MD Unavailable [phone] Reason for Visit * Reason Onset Date Comments Integrative Oncology Referral 02/05/2025 Encounter Details Date Type Department Care Team (Late st Contact Info) Description 02/05/2025 Telephone [facility] ON[facility] [place], [place] [phone] Narda Vickers, Clerical Staff Integrative Oncology Referral [...] th e electric, gas, oil, or water [employer] threatened to shut off services in your [...] 5 07/07/2024 [facility] of Occupat ional Health - Occupational Stress [...] in a penitentiary (including now)? No 11/07/2023 [facility] IP Transportation Answer D [...] Clerical Staff - 02/05/2025 11:38 AM EDT 121 [employer] message sent with Integrative Oncology information and newsletter. Narda documented in this encounter Plan of Treatment Upcoming Encounters Date Type Department Care Team (Late st Contact Info) Description 04/29/2025 9:15 AM EDT Appointment [place] [address] Batool Celis MD [address] [place] [address] [place] [address] 05/19/2025 2:15 PM EST Office Visit [address] [address] Sin Tran MD [address] [place] [address] 06/09/2025 12:45 PM EST Procedure visit [facility] [address] [facility] [address] [place] [address] Samm Ledesma APRN [address] [facility] [address] [place] [address] 08/12/2025 10:40 AM EST Appointment [facility] Women's Wellness [facility] [place] [address] Matt Ulrich MD [address] [place] [address] 254 [place] [address] documented as of this encounter [...] documented as of this encounter Care Teams Hemming And Tacking Machine Operator Relationship Specialty [place] [address] [place] [address] PCP - General 06/21/10 03/08/25 Arlyn Schmidt MD [address] [place] [address] Consulting Physician Internal Medicine-Endocrinology, Diabetes & Metabolism 11/28/20 Tacho Echavarria MD 1 [place] [address] Internal Medicine-Medical Oncology 11/12/23 Matt Ulrich MD 1 [place] [address] Surgery-Surgical Oncology 12/04/23 Eze Brock Pastoral Care 12/13/23 Annette Walker, PARTS ADVISOR Procurement Agent 05/13/24 Batool Celis MD 1 [facility] [place] [address] Radiation Oncologist Radiology-Radiation Oncology 06/08/24 documented as of this encounter
--- OUTSIDE RECORDS SUMMARY | 2025-03-11 09:42 | XMS_ITS | Encounter Summary ---
Author Organization [place] [address] Care Team Providers Care Business Process Manager Name Role Phone Chetna Cedeno MD Primary Care Provider [phone] Arlyn Schmidt MD Unavailable [phone] Tacho Echavarria MD Unavailable [phone] Matt Ulrich MD Unavailable [phone] Eze Brock Unavailable Annette Walker Unavailable [phone] Batool Celis MD Unavailable [phone] Encounter Details Date Type Department Care Team (Late st Contact Info) Description 02/15/2025 Telephone [facility] Medical Oncology [place], [place] [id number] Tacho Echavarria MD [address] [place] [address] [id number] Social History Tobacco Use Types Packs/Day Years [...] from your doctor or pharmacy? Never 11/07/2023 [facility] Utilities Answer Date Recorded In [...] PHQ-2 Total Score 5 07/07/2024 [facility] of Occupat ional Health - Occupational Stress [...] in a usp (including now)? No 11/07/2023 [facility] IP Transportation Answer [...] air conditioning unit will be at the spa receptionist desk on the second floor. Copy also placed in scan pile documented in this encounter Plan of Treatment Upcoming Encounters Date Type Department Care Team (Late st Contact Info) Description 04/29/2025 9:15 AM EDT Appointment [place] [address] Batool Celis MD [address] [place] [address] [place] [address] 05/19/2025 2:15 PM EST Office Visit [facility] [address] [place] [address] [address] [place] [address] Sin Tran MD [address] [place] [address] 06/09/2025 12:45 PM EST Procedure visit [facility] [address] [facility] [address] [place] [address] Samm Ledesma APRN [address] [facility] [address] [place] [address] 08/12/2025 10:40 AM EST Appointment [facility] Women's Wellness [facility] [address] [place] [phone] Matt Ulrich MD [address] [facility] [place] [address] documented as of this encounter Goals Goal [...] as of this encounter Care Teams Business Process Manager Relationship Specialty [place] [address] [place] [address] PCP - General 06/21/10 03/08/25 Arlyn Schmidt MD [address] [place] [address] Consulting Physician Internal Medicine-Endocrinology, Diabetes & Metabolism 11/28/20 Tacho Echavarria MD 1 [place] [address] Internal Medicine-Medical Oncology 11/12/23 Matt Ulrich MD 1 [place] [address] Surgery-Surgical Oncology 12/04/23 Eze Brock Pastoral Care 12/13/23 Annette Walker, CODE AND TEST CLERK Relay Telegrapher 05/13/24 Batool Celis MD 1 [facility] [place] [address] Radiation Oncologist Radiology-Radiation Oncology 06/08/24 documented as of this encounter
--- OUTSIDE RECORDS SUMMARY | 2025-03-11 09:42 | XMS_ITS | Encounter Summary ---
Author Organization [place] [address] Care Team Providers Care Camera Machinist Name Role Phone Chetna Cedeno MD Primary Care Provider [phone] Arlyn Schmidt MD Unavailable [phone] Tacho Echavarria MD Unavailable [phone] Matt Ulrich MD Unavailable [phone] Eze Brock Unavailable Annette Walker UNIX SYSTEM ADMINISTRATOR Unavailable [phone] Batool Celis MD Unavailable [phone] Encounter Details Date Type Department Care Team (Late st Contact Info) Description 02/04/2025 Social Work [facility] Cancer Care [facility] [place] [address] Annette Walker, UNIX SYSTEM ADMINISTRATOR Social History Tobacco Use Types Packs/Day Years [...] Recorded In the past 12 months has [employer], oil, or water [employer] threatened to shut off services in your [...] a senior living (including now)? No 11/07/2023 [facility] IP Transportation Answer [...] - 02/04/2025 1:42 PM EDT 02/04/25 1341 Instrument Maker And Repairer Assessment Referred By DT Disease/[place] Site Heating Technician Assignment Breast cancer Referral Location: [facility] Reason for Referral DT Identified Needs Adjustment to illness;Education/Information;Mental Health;Transportation Social Work Interventions Education/Information;Brief Couseling/Support;Transportation Distress Screening SW Reviewed Yes On this date, ARACELI Spears, TILE LAYER DRAINAGE met with patient in response to receipt of a distress tool submitted on patients behalf. Patient's distress tool rating was 10 and TILE LAYER DRAINAGE provided brief counseling/support to Patient. Patient explained she wanting to moved forward with her life but various issues are causing set backs including a recent hospitalization and newly discovered blood clot in her lung. Patient is continuing telehealth therapy with therapist, Jenniffer and although she had initial appointment with [facility] for medication management, she has not follow up with recommended appointment and request to refill medication has been declined. Patient states she had a reaction to the medication prescribed and has been taking medication prescribed by Dr. Echavarria's office for her depression. We discussed need to establish exterminator helper termite relationship with therapist/medication management provider for her mental health. TILE LAYER DRAINAGE suggested communication with [facility] regarding side effects and possible alternatives. Patient expresses great relief of being out of the [facility] away from unhealthy relationships but has run into some issues with her new housing. She is working closely with [facility] to move to a lower floor and resolve issues including HVAC issues. She received donated air conditioner from [facility] and [facility] has allowed that unit. TILE LAYER DRAINAGE provided gas cards to assist Patient with fuel costs associated with long drive to her home. Patient expressed that she is focusing on stabilizing her health, gaining strength, and hopes to engage in a volunteer capacity in her new community soon. No other needs identified at this time. TILE LAYER DRAINAGE remains available to support as needed. documented in this encounter Plan of Treatment Upcoming Encounters Date Type Department Care Team (Late st Contact Info) Description 04/29/2025 9:15 AM EDT Appointment [facility] [place] [address] Batool Celis MD [address] [place] [address] CANCER CARE [place] [id number] 05/19/2025 2:15 PM EST Office Visit [facility] [address] [facility] [address] [place] [address] [place] [address] [place] [address] 06/09/2025 12:45 PM EST Procedure visit [facility] [address] [place], [place] [id number] Samm Ledesma, LEYLA [address] [place], [place] [id number] 08/12/2025 10:40 AM EST Appointment [facility] Women's Wellness [facility] [place] [id number] Matt Ulrich MD [address] [place] [address] [address] [place] [id number] documented as of this encounter Goals Goal [...] as of this encounter Care Teams Camera Machinist Relationship Specialty [place] [address] [place] [address] PCP - General 06/21/10 03/08/25 Arlyn Schmitd MD [address] [place] [address] Consulting Physician Internal Medicine-Endocrinology, Diabetes & Metabolism 11/28/20 Tacho Echavarria MD 1 [place] [address] Internal Medicine-Medical Oncology 11/12/23 Matt Ulrich MD 1 [place] [address] Surgery-Surgical Oncology 12/04/23 Eze Brock Pastoral Care 12/13/23 Annette Walker, ARACELI Heating Technician 05/13/24 Batool Celis MD [address] [place] [address] [place] [address] Radiation Oncologist Radiology-Radiation Oncology 06/08/24 documented as of this encounter
--- OUTSIDE RECORDS SUMMARY | 2025-03-11 09:42 | XMS_ITS | Encounter Summary ---
Author Organization [place] [address] Care Team Providers Care Field Advisor Name Role Phone Chetna Cedeno MD Primary Care Provider [phone] Arlyn Schmidt MD Unavailable [phone] Tacho Echavarria MD Unavailable [phone] Matt Ulrich MD Unavailable [phone] Eze Brock Unavailable Annette Walker Unavailable [phone] Batool Celis MD Unavailable [phone] Reason for Visit * Reason Onset Date Comments Other 02/05/2025 BW Encounter Details Date Type Department Care Team (Late st Contact Info) Description 02/05/2025 Telephone [facility] [place] [address] [place] [address] [place] [address] [place] [address] Other (BW) Social History Tobacco Use [...] your doctor or pharmacy? Never 11/07/2023 [facility] Utilities Answer Date Recorded In [...] PHQ-2 Total Score 5 07/07/2024 [facility] of Occupat ional [...] in a fdc (including now)? No 11/07/2023 [facility] IP Transportation Answer D [...] accepted: Orders * Telephone Encounter - Clarence Balnton MD - 02/05/2025 12:20 PM EDT I sent some potassium tabs for her to take to [facility] [place] * Telephone Encounter - Destiny Alejandre CCMA [...] Appointment [facility] [place] [address] Batool Celis MD [address] [place] [address] [place] [address] 05/19/2025 2:15 PM EST Office Visit [address] [address] Sin Tran MD [address] [place] [address] 06/09/2025 12:45 PM EST Procedure visit [facility] [address] [place] [address] Samm Ledesma, VOCATIONAL INSTRUCTOR [address] [place] [address] 08/12/2025 10:40 AM EST Appointment [facility] Women's Wellness [place] One [facility] [place] [address] Matt Ulrich MD [address] [place] [address] DR [facility] [address] [place] [address] documented as of this encounter [...] as of this encounter Care Teams Field Advisor Relationship Specialty [place] [address] [place] [phone] PCP - General 06/21/10 03/08/25 Arlyn Schmidt MD [address] [place] [address] Consulting Physician Internal Medicine-Endocrinology, Diabetes & Metabolism 11/28/20 Tacho Echavarria MD 1 [place] [address] Internal Medicine-Medical Oncology 11/12/23 Matt Ulrich MD 1 [place] [address] Surgery-Surgical Oncology 12/04/23 Eze Brock Pastoral Care 12/13/23 Annette Walker, FACULTY RESEARCH ASSISTANT Nurse Practitioner Manager 05/13/24 Batool Celis MD 1 [facility] [place] [address] Radiation Oncologist Radiology-Radiation Oncology 06/08/24 documented as of this encounter
--- OUTSIDE RECORDS SUMMARY | 2025-03-11 09:42 | XMS_ITS | Encounter Summary ---
Author Organization [place] [address] Care Team Providers Care Steam Room Attendant Name Role Phone Chetna Cedeno MD Primary Care Provider [phone] Arlyn Schmidt MD Unavailable [phone] Tacho Echavarria MD Unavailable [phone] Matt Ulrich MD Unavailable [phone] Eze Brock Unavailable Annette Walker Unavailable [phone] Batool Celis MD Unavailable [phone] Reason for Visit * Reason Onset Date Comments Appointment Needed 02/04/2025 Encounter Details Date Type Department Care Team (Late st Contact Info) Description 02/04/2025 Telephone [facility] [place] [address] Aliya Harden, Clerical Staff Appointment [...] th e electric, gas, oil, or water [employer] threatened to shut off services in your [...] Score 5 07/07/2024 [facility] [place] of Occupat ional Health - Occupational [...] in a residential (including now)? No 11/07/2023 [facility] IP Transportation Answer D [...] EDT Appointment [facility] [address] Batool Celis MD [address] [place] [address] [place] [address] 05/19/2025 2:15 PM EST Office Visit [address] [address] Sin Tran MD [address] [place] [address] 06/09/2025 12:45 PM EST Procedure visit [facility] [address] [place] [address] Baltazar Samm Dillon, GUNNER'S MATE [address] [place] [address] 08/12/2025 10:40 AM EST Appointment [facility] Women's Wellness [place] [address] [facility] [place] [address] Matt Ulrich MD [address] [place] [address] 254 [place] [address] documented as of this encounter [...] questions or concerns. Breast [facility] Breast Health Not on track(2024 [...] as of this encounter Care Teams Steam Room Attendant Relationship Specialty [place] [address] [place] [phone] PCP - General 06/21/10 03/08/25 Arlyn Schmidt MD [address] [place], [place] [phone] Consulting Physician Internal Medicine-Endocrinology, Diabetes & Metabolism 11/28/20 Tacho Echavarria MD 1 [place] [address] Internal Medicine-Medical Oncology 11/12/23 Matt Ulrich MD 1 [place], [place] [id number] Surgery-Surgical Oncology 12/04/23 Eze Brock Pastoral Care 12/13/23 Annette Walker MSW Tanning Wheel Filler 05/13/24 Batool Celis MD 1 [facility] [place] [address] Radiation Oncologist Radiology-Radiation Oncology 06/08/24 documented as of this encounter
--- OUTSIDE RECORDS SUMMARY | 2025-03-11 09:42 | XMS_ITS | Encounter Summary ---
Author Organization [place] [address] Care Team Providers Care Pega Developer Name Role Phone Chetna Cedeno MD Primary Care Provider [phone] Arlyn Schmidt MD Unavailable [phone] Tacho Echavarria MD Unavailable [phone] Matt Ulrich MD Unavailable [phone] Eze Brock Unavailable Annette Walker Unavailable [phone] Batool Celis MD Unavailable [phone] Reason for Visit * Reason Comments Pharmacy Migraine Medication Management Qulipta/Nurtec Encounter Details Date Type Department Care Team (Latest Contact Info) Description 02/26/2025 Specialty Pharmacy [facility] [address] [place] [address] Charlotte Martino CPhT Pharmacy Migraine [...] Total Score 5 07/07/2024 [facility] [place] of Occupat ional Health - Occupational Stress [...] 11/07/2023 [facility] IP Transportation Answer [...] $0 No answer, unable to leave voicemail. * Charlotte Martino CPhT - 02/26/2025 11:29 AM EDT Specialty Pharmacy Refill Coordination Note Contacted [facility] today regarding refills of Qulipta/Nurtec. Copay amount: $0 Sent [email or web address] message. Patient informed of copay. * Annamarie Mark CPhT - 02/26/2025 11:29 AM EDT Specialty Pharmacy Refill Coordination Note Contacted [facility] today regarding refills of Qulipta & Nurtec. Copay amount: $0 for each No answer, unable to leave voicemail. voicemail not set up * Anisa Lozoya CPhT - 02/26/2025 11:29 AM EDT Specialty Pharmacy Refill Coordination Note [facility] Completed Questionnaire today regarding refills of Qulipta/Nurtec . Medication anselmo picked up on 03/09. Copay amount: $0 Sent [email or web address] message. Patient informed of copay. * Anisa Lozoya CPhT - 02/26/2025 11:29 AM EDT [facility] will now fish bait picker 03/10 with verzenio documented in this encounter Plan of Treatment Upcoming Encounters Date Type Department Care Team (Late st Contact Info) Description 04/29/2025 9:15 AM EDT Appointment [facility] [place] [address] Batool Celis MD [address] [place] [address] [place] [address] 05/19/2025 2:15 PM EST Office Visit [address] [place] [address] Sin Tran MD [address] [place] [address] 06/09/2025 12:45 PM EST Procedure visit [facility] [address] [place] [address] Samm Ledesma, INTERNAL AUDIT MANAGER [address] [facility] [address] [place], [place] [id number] 08/12/2025 10:40 AM EST Appointment [facility] Women's Wellness [facility] [place] [address] Matt Ulrich MD [address] [place] [address] 254 [place] [address] documented as of this encounter [...] documented as of this encounter Care Teams Pega Developer Relationship Specialty [place] [address] [place] [address] PCP - General 06/21/10 03/08/25 Arlyn Schmidt MD [address] [place] [address] Consulting Physician Internal Medicine-Endocrinology, Diabetes & Metabolism 11/28/20 Tacho Echavarria MD [address] [place] [address] Internal Medicine-Medical Oncology 11/12/23 Matt Ulrich MD 1 [place] [address] Surgery-Surgical Oncology 12/04/23 Eze Brock Pastoral Care 12/13/23 Annette Walker, TRANSPORTATION JOB TITLES Chief Controller Center 05/13/24 Batool Celis MD 1 [facility] [place] [address] Radiation Oncologist Radiology-Radiation Oncology 06/08/24 documented as of this encounter
--- OUTSIDE RECORDS SUMMARY | 2025-03-11 09:42 | XMS_ITS | Encounter Summary ---
Author Organization [place] [address] Care Team Providers Care Train Conductor Name Role Phone Chetna Cedeno MD Primary Care Provider [phone] Arlyn Schmidt MD Unavailable [phone] Tacho Echavarria MD Unavailable [phone] Matt Ulrich MD Unavailable [phone] Eze Brock Unavailable Annette Walker Unavailable Batool Celis MD Unavailable [phone] Reason for Visit * Reason Onset Date Comments Other 02/03/2025 Pain pump meds Encounter Details Date Type Department Care Team (Late st Contact Info) Description 02/03/2025 Telephone [facility] [address] [address] Sin Tran MD [address] [place] [address] Other (Pain pump meds) Social History [...] in a half-way (including now)? No 11/07/2023 [facility] [...] 12/06/2022 2:08 PM Macarean Henson CCMA * Is the person blind [...] EDT Appointment [facility] [place] [address] Batool Celis MD [address] [place] [address] CANCER CARE [place] [phone] 05/19/2025 2:15 PM EST Office Visit [address] [facility] [address] [place] [address] Sin Tran MD [address] [place] [address] 06/09/2025 12:45 PM EST Procedure visit [facility] [address] [facility] [place] [address] Samm Ledesma APRN [address] [facility] [address] [place] [address] 08/12/2025 10:40 AM EST Appointment [facility] Women's Wellness [place] One [facility] [place] [address] Matt Ulrich MD [address] [place] [address] DR MUSA H[facility] [address] documented as of this encounter Goals Goal [...] as of this encounter Care Teams Train Conductor Relationship Specialty [place] [address] [place] [address] PCP - General 06/21/10 03/08/25 Arlyn Schmidt MD [address] [place] [address] Consulting Physician Internal Medicine-Endocrinology, Diabetes & Metabolism 11/28/20 Tacho Echavarria MD 1 [place] [phone] Internal Medicine-Medical Oncology 11/12/23 Matt Ulrich MD 1 [place] [id number] Surgery-Surgical Oncology 12/04/23 Eze Brock Pastoral Care 12/13/23 Annette Walker, CLINICAL SAFETY SPECIALIST Commodity Loan Clerk 05/13/24 Batool Celis MD 1 [place] [address] Radiation Oncologist Radiology-Radiation Oncology 06/08/24 documented as of this encounter
--- OUTSIDE RECORDS SUMMARY | 2025-03-11 09:42 | XMS_ITS | Referral Summary ---
Author Organization [facility] Address [address] [place] [address] Phone Care Team Providers Care Industrial Chemist Name Role Phone Chetna Cedeno MD Primary Care Provider Encounters Date Type Department Care Team Description 01/02/2025 4:26 PM EDT - 01/02/2025 7:27 PM EDT Emergency [facility] Emergency Department [address] [place] [address] Dallin Espinoza MD Heat exhaustion, [...] NITROGEN 16 8 - 26 mg/dL [facility] SODIUM 140 135 - 145 mmol/L [facility] POTASSIUM 3.2(L) 3.6 - 5.1 mmol/L [facility] CHLORIDE 107 98 - 111 mmol/L [facility] CO2 20(L) 21 - 31 mmol/L [facility] GLUCOSE, RANDOM 89 70 - 99 mg/dL [facility] CREATININE 1.06 0.60 - 1.20 mg/dL [facility] ANION GAP 13 4 - 16 mmol/L [facility] CALCIUM 9.0 8.5 - 10.4 mg/dL [facility] ESTIMATED GFR 61 >59 mL/min/1.7 3 m2 [facility] Comment: Estimated GFR was calculated using the CKD-EPI cr (2020) equation refit without race. The equation is recommended by the National Kidney Foundation - [place] [employer] of Nephrology Task Force. Tested at [facility] [id number] [place] [address] Whole Blood 01/02/2025 5:13 PM EDT 01/02/2025 5:25 PM EDT us Dallin Espinoza MD LAB BLOOD ORDERABLES Final Result [facility] [address] [place] [address] [address] * (ABNORMAL) CBC w/ Diff (01/02/2025 5:13 PM EDT) WBC 7.1 3.6 - 10.5 THOU/mcL [facility] RBC 3.75(L) 3.80 - 5.20 MIL/mcL [facility] HEMOGLOBIN 11.2(L) 12.0 - 15.2 g/dL [facility] HEMATOCRIT 33.6(L) 36 - 46 % [facility] MCV 89.6 82 - 97 fL [facility] MCH 30.0 27 - 33 pg [facility] MCHC 33.5 32 - 36 g/dL [facility] RDW 16.0 12.3 - 17.0 % [facility] PLATELET 206 140 - 375 THOU/mcL [facility] MPV 6.9(L) 7.0 - 11.5 fL [facility] ABS. NEUTROPHIL 3.60 1.80 - 7.70 THOU/mcL [facility] ABS LYMPHS 3.00 1.00 - 4.00 THOU/mcL [facility] ABS MONOS 0.30 0.20 - 0.90 THOU/mcL [facility] ABS EOS 0.10 0.03 - 0.45 THOU/mcL [facility] ABS BASOS 0.10 0.00 - 0.20 THOU/mcL [facility] SEGS 51 % [facility] LYMPHOCYTES 43 % CHEMISTR Y NORTH MONOCYTES 4 % CHEMISTRY NORTH EOSINOPHIL 1 % CHEMISTRY NORTH BASOPHILS 1 % [facility] Comment:Tested at [facility] [address] [facility] [address] Whole Blood 01/02/2025 5:13 PM EDT 01/02/2025 5:25 PM EDT Dallin Espinoza MD LAB BLOOD ORDERABLES Final Result [facility] [address] [place] [address] CHEMISTRY [facility] [address] [place] [address] * ECG 12 lead (01/02/2025 4:37 PM [...] QTcF 417 ms TH TRACEMASTER QRS Horizontal Kimball -19 deg TH TRACEMASTER QRS AXIS 16 deg TH TRACEMASTER I-40 Horizontal [place]ball 46 deg TH TRACEMASTER I-40 FRONT AXIS -17 deg TH TRACEMASTER T-40 Horizontal [place] -50 deg TH TRACEMASTER T-40 Front Kimball 51 deg TH TRACEMASTER T Horizontal [place] 52 deg TH TRACEMASTER T WAVE AXIS 16 deg TH TRACEMASTER S-T Horizontal [place]ball 60 deg TH TRACEMASTER S-T Front Kimball 24 deg TH TRACEMASTER ECG IMPRESSION - BORDERLINE ECG - TH TRACEMASTER ECG IMPRESSION SR-Sinus rhythm-normal P axis, V-rate 50-99 TH TRACEMASTER ECG IMPRESSION LVHVP-Probable left ventricular hypertrophy-mul tiple LVH criteria TH TRACEMASTER ECGGUID [id number] TH TRACEMASTER 01/02/2025 4:37 PM EDT us Dallin Espinoza MD ECG ORDERABLES Final Resu lt TH TRACEMASTER from Last 3 Months Insurance [facility] MEDICAID Care Teams Industrial Chemist Relationship Specialty Start Date End Date Chetna Cedeno MD [facility] [address] [place] [address] PCP - General Family Medicine 01/02/25
--- NOTE | 2025-03-11 09:45 | CT_ITS ---
FINAL REPORT TECHNIQUE: CT examination was performed after the administration of intravenous contrast using axial images from the vertex through the skull base. Multiplanar reconstructions in the sagittal and coronal planes were subsequently performed. This study was performed with techniques to keep radiation doses as low as reasonably achievable (ALARA). Individualized dose reduction techniques using automated exposure control or adjustment of mA and/or kV according to the patient's size were employed. CLINICAL HISTORY: enlarged pituitary COMPARISON: None FINDINGS: CT HEAD WITH CONTRAST: The ventricles are normal in size and configuration. No mass effect or midline shift is noted. No extra-axial fluid collections are present. The brain parenchyma is normal in density and appearance. There is a convex superior margin of the pituitary gland seen on sagittal image #30 of series 601. Would recommend MRI with special attention to the pituitary gland with and without contrast for further evaluation. IMPRESSION: Convex superior margin of the pituitary gland as described, recommend MRI with special attention to the pituitary gland. Reviewed, Interpreted and Dictated by Balwinder Moura MD Transcribed by Anahy Garnett Authenticated and [facility]
[2025-03-11 10:33] LABS: Hemoglobin A1C 4.9 % (4.0-6.0)
[2025-03-11 10:57] LABS: Free T4 (Free Thyroxine) 1.27 ng/dl (0.78-2.19)
[2025-03-11 11:11] LABS: Thyroid Stimulating Hormone 0.38 uIU/mL (0.465-4.68)
[2025-03-12 08:14] LABS: LH 18.4 mIU/mL (.)
[2025-03-12 15:12] LABS: FSH 37.4 mIU/mL (.)
== END 2025-03-11 23:59 | disposition home or self-care (01) ==
LOC: RAD 09:36
PROVIDERS: Student in an Organized Health Care Education/Training Program; PCP Family Medicine; Visit Provider Internal Medicine Medical Oncology
DX: D05.11 Intraductal carcinoma in situ of right breast (principal); R93.0 Abnormal findings on diagnostic imaging of skull and head, not elsewhere classified; R73.9 Hyperglycemia, unspecified
CPT/HCPCS: 36415; 70460; 82024; 82533; 83001; 83002; 83036; 84146; 84305; 84439; 84443

== ENCOUNTER 2025-03-15 11:55 | Outpatient (CLI) | payer MEDICAID, SELFPAY ==
--- OUTSIDE RECORDS SUMMARY | 2025-01-15 11:55 | XMS_ITS | Encounter Summary ---
Author Organization [place] [address] Care Team Providers Care Sewer Bricklayer Name Role Phone Chetna Cedeno MD Primary Care Provider [phone] Arlyn Schmidt MD Unavailable [phone] Tacho Echavarria MD Unavailable [phone] Matt Ulrich MD Unavailable [phone] Eze Brock Unavailable Annette Walker Unavailable [phone] Batool Celis MD Unavailable [phone] Reason for Visit * Physical Therapy (Routine) - Closed Specialty Diagnoses / Procedures Referred By Contac t Referred To Contact Physical Therapy Diagnoses Invasive ductal carcinoma of breast, female, right (HCC) Acquired lymphedema Matt Ulrich MD [address] [place] [address] Phone: tel: fax: Kylah Lawler PT Referral ID Status Reason Start Date Expiration Date V isits Requested Visits Authorized [id number] Closed Specialty Services Required 09/04/2024 01/18/2025 1 20 Encounter Details Date Type Department Care Team (Latest Contact Info) Description 01/15/2025 11:55 AM EDT - 01/15/2025 1:14 PM EDT Hospital Encounter [facility] Physical Therapy [address] [place] [address] Kylah Lawler, PT Discharge Disposition: Home or [...] doctor or pharmacy? Never 11/07/[address] [facility] Utilities Answer Date Recorded In the [...] often do you attend chur ch or adventist services? 1 to 4 times per year 11/07/2023 Do you belong to any clubs o r organizations such as alevism groups, unions, fraternal or athletic groups, or [...] Date Recorded PHQ-2 Total Score 5 07/07/2024 [facility] [place] of Occupat ional Health - Occupational Stress [...] in a halfway (including now)? No 11/07/2023 [facility] IP Transportation Answer D ate [...] of Assessment Author No 12/06/2022 2:08 PM EDMcaarena Brunner CCMA documented as of this encounter [...] 4 fluticasone propionate (FLONASE) 50 mcg/actuation Nasl [place], Suspension 1 [place] by Nasal route daily. 1 Each 11 [...] 01/06/2025 12:01 PM EDT 5 02/03/20 25 exemestane (AROMASIN) 25 mg Oral Tablet Take 25 mg by mouth daily. 5 02/09/20 25 lidocaine-priloca ine (EMLA) Top CreamIndications: Invasive ductal carcinoma of breast, female, right (HCC) Apply dime size amount to port area 30 minutes prior to port access. 30 g 1 5 01/19/20 ubrogepant (UBRELVY) 100 mg Oral Tablet Take one tablet by mouth at onset of migraine. May repeat dose in 2 hours one time up to a maximum of 200mg per 24 hours. 10 Tablet 5 01/15/2025 3:10 PM EDT 02/03/20 documented as of this encounter Discharge [...] Cole : 1965 Visit # / Insurance: ([employer] [facility], 20 VISITS, , ANTHEM IS SHOWING NOT ELIGIBLE AND [employer] IS SHOWING ANTHEM PRIMARY. PATIENT NEEDS TO GET THIS RESOLVED, [employer] Auth [id number] 12 Visits 09/25/24-10/25/24, [employer] Auth [id number] Date Ext 09/25/24-11/24/24 [employer] Auth [id number] DATE extended to 01/18) Onset Date: 08/08/24 Diagnosis: Right JORDAN & UE & Chest Lymphedema Initial Eval Date: 09/25/24 Precautions: Hx CA Follow up: [facility], 01/26/25 Medication changes: None Reassessment Date: 02/14/2525 FOTO Date: 02/14/25 Time in/Out: 1203/1415 Pain Scale: 01/14 right upper arm Subjective: Pt states that [...] so not taken FOTO: 40 PSFS: Laundry 11/14, Take dogs out 11/14, Dishes 11/14 Steps to lymphedema prevention: Independent HEP: Independent [...] progression H/o issued Independent Independent Independent Met Detention Goals: (set for 6 weeks) Patient will demonstrate independence with compression application to decrease lymphedema progression Reviewed with pt Independent Independent Independent Met Patient will be independent with self MLD to decrease lymphedema progression H/o issued, referral to [facility] for home pump Independent as able, waiting [...] Care Team (Late st Contact Info) Description 03/18/2025 7:30 AM EDT Appointment [facility] [place] [address] Adryan Rowan MD [address] [facility] [address] [place] [address] 04/29/2025 9:15 AM EDT Appointment [facility] RAD ONC [place], [place] [id number] Batool Celis MD [address] [facility] [place] [address] 05/19/2025 2:15 PM EST Office Visit [address] [place] [address] Sin Tran MD [address] [place] [address] 06/09/2025 12:45 PM EST Procedure visit [facility] [address] [facility] [address] [place] [address] Samm Ledesma, APPRENTICE JOCKEY [address] [address] [place] [address] 08/12/2025 10:40 AM EST Appointment [facility] Women's Wellness [place] [facility] [place] [address] Matt Ulrich MD [address] [place] [address] DR MUSA Hameed [facility] [place] [address] documented as of this encounter Goals [...] contact for any unusual or concerning findings. Breast Health Breast Health On track(2024 11:27 AM EDT) No Demi Garibay, RAUL Note: Patient will be compliant with taking Aromatase Inhibitor daily and understands who to contact to discuss any side effects or complications. Maintain a healthy diet, exercise regularly and maintain an ideal body weight General No Sanam Julio MA documented as of this encounter Visit Diagnoses Not on filedocumented in this encounter Additional Health Concerns Assessment Noted Time PHQ-9 Depression Total Score: 17 024 8:39 AM EST PHQ-2 Depression Total Score: 5 07/07/20 24 8:39 AM EST documented as of this encounter Care Teams Sewer Bricklayer Relationship Specialty [place] [address] [place] [address] PCP - General 06/21/10 03/08/25 Arlyn Schmidt MD [address] [place] [address] Consulting Physician Internal Medicine-Endocrinology, Diabetes & Metabolism 11/28/20 Tacho Echavarria MD 1 [place] [id number] Internal Medicine-Medical Oncology 11/12/23 Matt Ulrich MD 1 [place] [id number] Surgery-Surgical Oncology 12/04/23 Eze Brock Pastoral Care 12/13/23 Annette Walker, ARACELI Sweat Box Attendant 05/13/24 Batool Celis MD [address] [facility] [place] [address] Radiation Oncologist Radiology-Radiation Oncology 06/08/24 documented as of this encounter
--- OUTSIDE RECORDS SUMMARY | 2025-01-15 13:15 | XMS_ITS | Encounter Summary ---
Author Organization [place] [address] Care Team Providers Care Landscape Account Manager Name Role Phone Chetna Cedeno MD Primary Care Provider [phone] Arlyn Schmidt MD Unavailable [phone] Tacho Echavarria MD Unavailable [phone] Matt Ulrich MD Unavailable [phone] Eze Brock Unavailable Annette Walker Unavailable [phone] Batool Celis MD Unavailable [phone] Encounter Details Date Type Department Care Team (Latest Contact Info) Description 01/15/2025 1:15 PM EDT - 01/15/2025 1:29 PM EDT Hospital Encounter [facility] [place], [place] [phone] Tacho Echavarria MD [address] [place] [id number] Invasive ductal carcinoma of breast, female, right [...] often do you attend chur ch or sabianism services? 1 to 4 times per year 11/07/2023 Do you belong to any clubs o r organizations such as restorationist groups, unions, fraternal or athletic groups, or [...] in the past 12 m [facility], were you homeless or living in a snf (including now)? No 11/07/2023 [facility] IP Transportation Answer D ate [...] 4 fluticasone propionate (FLONASE) 50 mcg/actuation Nasl [place], Suspension 1 [place] by Nasal route daily. 1 Each 4 [...] 5 01/15/2025 3:10 PM EDT 5 02/03/20 25 documented as of this encounter Discharge Disposition Disposition Code Departure Means Destination Home or Self Care documented in this encounter Plan of Treatment Upcoming Encounters Date Type Department Care Team (Late st Contact Info) Description 03/18/2025 7:30 AM EDT Appointment [facility] [place] [address] Adryan Rowan MD [address] [facility] [address] [place] [phone] 04/29/2025 9:15 AM EDT Appointment [facility] RAD ONC [place], [place] [phone] Batool Celis MD [address] [place] [address] CANCER CARE [place], [place] [phone] 05/19/2025 2:15 PM EST [facility] [address] [facility] [address] [place] [address] Sin Tran MD [address] [place] [address] 06/09/2025 12:45 PM EST Procedure visit [facility] [address] [facility] [address] [place] [address] Samm Ledesma, LEYLA [address] [place] [address] 08/12/2025 10:40 AM EST Appointment [facility] Women's Wellness [facility] [address] [place] [phone] Matt Ulrich MD [address] [place] [address] [address] [place], [place] [phone] documented as of this encounter Goals Goal Patient Goal Type Associated Problems Recent Progress Patient-Stated? Author Blood Pressure < 140/90 Blood Pressure 121/77(02/04 2:04 PM EDT) No Chetna Cedeno MD Breast [facility] Breast Health On track(2024 11:27 AM EDT) No Jasmin Porter, RAUL Note: Patient acknowledges understanding of new diagnosis, plan of care, available resources and how to contact Nurse Navigator with any future questions or concerns. Breast [facility] Breast [facility] Not on track(2024 11:27 AM EDT) No [...] - 145 mmol/L 01/15/2025 2:05 PM EDT [facility] Potassium 4.0 3.5 - 5.0 mmol/L 01/15/2025 2:05 PM EDT [facility] Chloride 107 98 - 107 mmol/L 01/15/2025 2:05 PM EDT [facility] Total CO2 25 22 - 29 mmol/L 01/15/2025 2:05 PM EDT [facility] Anion Gap 8 7 - 16 mmol/L 01/15/2025 2:05 PM EDT [facility] Calcium 9.3 8.6 - 10.4 mg/dL 01/15/2025 2:05 PM EDT [facility] Glucose Lvl 88 70 - 99 mg/dL 01/15/2025 2:05 PM EDT [facility] BUN 13 6 - 20 mg/dL 01/15/2025 2:05 PM EDT [facility] Creatinine 0.85 0.51 - 1.30 mg/dL 01/15/2025 2:05 PM EDT [facility] Albumin 4.0 3.5 - 5.2 gm/dL 01/15/2025 2:05 PM EDT [facility] Total Protein 6.7 6.4 - 8.3 gm/dL 01/15/2025 2:05 PM EDT [facility] Bili Total 0.3 0.2 - 1.3 mg/dL 01/15/2025 2:05 PM EDT [facility] ALT 8 <=41 U/L 01/15/2025 2:05 PM EDT [facility] AST 14 <=40 U/L 01/15/2025 2:05 PM EDT [facility] Alk Phos 124(H) 36 - 123 U/L 01/15/2025 2:05 PM EDT [facility] eGFR (CKD-EPIcr 2020) 79 >=60 mL/min/1.7 3 m2 01/15/2025 2:05 PM EDT [facility] Comment:Estimated GFR was ca lculated using the CKD-EPIcr (2020) equation refit without race. The equation is recommended by the National Kidney Foundation - [place] Society of Nephrology Task Force. Blood VENOUS BLOOD / Unknown Venipuncture / Unknown 01/15/2025 1:41 PM EDT 01/15/2025 1:44 PM EDT us Heydi Sorensen APRN CHEMISTRY ORDERABLES Final Res ult [facility] 1 [place] [address] * (ABNORMAL) CBC WITH DIFF (01/15/2025 1:41 PM EDT) WBC 4.5 3.7 - 10.3 x10(3)/mc L 01/15/2025 1:49 PM EDT [facility] RBC 3.40(L) 3.90 - 5.20 x10(6)/mc L 01/15/2025 1:49 PM EDT [facility] Hgb 10.3(L) 11.2 - 15.7 g/dL 01/15/2025 1:49 PM EDT [facility] Hct 31.7(L) 34.0 - 45.0 % 01/15/2025 1:49 PM EDT [facility] MCV 93.2 80.0 - 100.0 fL 01/15/2025 1:49 PM EDT [facility] MCH 30.3 26.0 - 34.0 pg 01/15/2025 1:49 PM EDT [facility] MCHC 32.5 30.7 - 35.5 g/dL 01/15/2025 1:49 PM EDT [facility] RDW 14.7 <=14.9 % 01/15/2025 1:49 PM EDT [facility] Platelet 165 155 - 369 x10(3)/mc L 01/15/2025 1:49 PM EDT [facility] MPV 8.4(L) 8.8 - 12.5 fL 01/15/2025 1:49 PM EDT [facility] Neut # Prelim 2.9 1.6 - 6.1 x10(3)/mc L 01/15/2025 1:49 PM EDT [facility] Comment:Preliminary automate d absolute neutrophil count. Value may change if manual differential is indicated. Neut Percent 64.2 % 01/15/2025 1:49 PM EDT [facility] Comment:Neutrophils equals s egs plus bands Imm Gran% 0.2 % 01/15/2025 1:49 PM EDT [facility] Comment:Automated count of m etamyelocytes, myelocytes and promyelocytes. Lymph Percent 28.3 % 01/15/2025 1:49 PM EDT [facility] [place] Percent 5.3 % 01/15/2025 1:49 PM EDT [facility] Eos Percent 1.3 % 01/15/2025 1:49 PM EDT [facility] Baso Percent 0.7 % 01/15/2025 1:49 PM EDT [facility] Neut # 2.9 1.6 - 6.1 x10(3)/ L 01/15/2025 1:49 PM EDT [facility] Comment:Neutrophils equals s egs plus bands IMMGRAN# 0.0 0.0 - 0.1 x10(3)/ L 01/15/2025 1:49 PM EDT [facility] Comment:Automated count of m etamyelocytes, myelocytes and promyelocytes. An absolute IG <0.1 is reported as 0.0. Lymph # 1.3 1.2 - 3.9 x10(3)/ L 01/15/2025 1:49 PM EDT [facility] [place] # 0.2(L) 0.3 - 0.9 x10(3)/ L 01/15/2025 1:49 PM EDT [facility] Eos# 0.1 0.0 - 0.5 x10(3)/ L 01/15/2025 1:49 PM EDT [facility] Baso # 0.0 0.0 - 0.1 x10(3)/ L 01/15/2025 1:49 PM EDT [facility] Blood VENOUS BLOOD / Unknown Venipuncture / Unknown 01/15/2025 1:41 PM EDT 01/15/2025 1:44 PM EDT us Heydi Sorensen APRN HEMATOLOGY ORDERABLES Final Re sult [facility] 1 [place] [address] documented in this encounter Visit Diagnoses Diagnosis Invasive ductal carcinoma of breast, female, right (HCC)- Primary Cold sweat Lightheaded Dizziness and giddiness Shakiness Abnormal involuntary movements documented in this encounter Orders Medications Ordered That Obed ht Not Have Been Administered Count Last Ordered Date First Ordered Date heparin flush 100 unit/mL in jection 500 Units 1 01/15/2025 sodium chloride 0.9 % sterile syringe 1 05/2025 sodium chloride 0.9% syringe 1 01/15/2025 documented in this encounter Additional Health Concerns Assessment Noted Time PHQ-9 Depression Total Score: 17 024 8:39 AM EST PHQ-2 Depression Total Score: 5 07/07/20 24 8:39 AM EST documented as of this encounter Care Teams Landscape Account Manager Relationship Specialty [place] [address] [place] [address] PCP - General 06/21/10 03/08/25 Arlyn Schmidt MD [address] [place] [address] Consulting Physician Internal Medicine-Endocrinology, Diabetes & Metabolism 11/28/20 Tacho Echavarria MD 1 [place], [place] [address] Internal Medicine-Medical Oncology 11/12/23 Matt Ulrich MD 1 [place], [place] [phone] Surgery-Surgical Oncology 12/04/23 Eze Brock Pastoral Care 12/13/23 Annette Walker MSW Job Printer Apprentice 05/13/24 Batool Celis MD 1 [facility] [place] [address] Radiation Oncologist Radiology-Radiation Oncology 06/08/24 documented as of this encounter
--- OUTSIDE RECORDS SUMMARY | 2025-01-15 13:30 | XMS_ITS | Encounter Summary ---
Author Organization 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 Never 11/07/2023 [facility] Utilities Answer Date Recorded In the past 12 months has e [employer], gas, oil, or water [employer] threatened to shut off services in your [...] often do you attend chur ch or rastafarian services? 1 to 4 times per year 11/07/2023 Do you belong to any clubs o r organizations such as sikh groups, unions, fraternal or athletic groups, or [...] Date Recorded PHQ-2 Total Score 5 07/07/2024 [facility] [place] of Occupat ional Health - Occupational Stress [...] in the past 12 m [facility], were you homeless or living in a [place] health care facility (including now)? No 11[facility]07/2023 [facility] IP Transportation Answer D ate Recorded In [...] 4 fluticasone propionate (FLONASE) 50 mcg/actuation Nasl [place], Suspension 1 [place] by Nasal route daily. 1 Each 11 [...] Info) Description 03/18/2025 7:30 AM EDT Appointment [facility] [place] [address] Adryan Rowan MD [address] [facility] [address] [place] [address] 04/29/2025 9:15 AM EDT Appointment [place] [address] Batool Celis MD [address] [place] [address] [place] [address] 05/19/2025 2:15 PM EST Office Visit [facility] [address] [place] [address] [address] [place] [address] Sin Tran MD [address] [place] [address] 06/09/2025 12:45 PM EST Procedure visit [facility] [address] [facility] [address] [place], [place] [id number] Samm Ledesma, LEYLA [address] [facility] [address] [place] [address] 08/12/2025 10:40 AM EST Appointment [facility] [place] [address] Matt Ulrich MD [address] [place] [address] [address] [place] [address] documented as of this encounter [...] documented as of this encounter Care Teams Fabric Sourcer Relationship Specialty [place] [address] [place] [address] PCP - General 06/21/10 03/08/25 Arlyn Schmidt MD [address] [place] [address] Consulting Physician Internal Medicine-Endocrinology, Diabetes & Metabolism 11/28/20 Tacho Echavarria MD 1 [place], [place] [id number] Internal Medicine-Medical Oncology 11/12/23 Matt Ulrich MD 1 [place], [place] [id number] Surgery-Surgical Oncology 12/04/23 Eze Brock Pastoral Care 12/13/23 Annette Walker, SAFETY OFFICER Hardboard Panel Printer 05/13/24 Batool Celis MD 1 [facility] [place] [address] Radiation Oncologist Radiology-Radiation Oncology 06/08/24 documented as of this encounter
--- OUTSIDE RECORDS SUMMARY | 2025-02-02 11:20 | XMS_ITS | Encounter Summary ---
Author [place] [address] Care Team Providers Care Office Service Coordinator Name Role Phone Chetna Cedeno MD Primary Care Provider [phone] Arlyn Schmidt MD Unavailable [phone] Tacho Echavarria MD Unavailable [phone] Matt Ulrich MD Unavailable [phone] Eze Brock Unavailable Annette Walker Unavailable [phone] Batool Celis MD Unavailable [phone] Encounter Details Date Type Department Care Team (Late st Contact Info) Description 02/02/2025 11:20 AM EDT Telemedicine [facility] [address] [facility] [address] [place] [address] Samm Ledesma, PLASTIC BATTERY ASSEMBLER [address] [place] [address] Chronic migraine without aura, intractable, with status migrainosus (Primary Dx); Paresthesia; Invasive ductal carcinoma of breast, female, right (HCC); Pituitary lesion; Radicular syndrome of left leg Discharge Disposition: Home or Self Care Social [...] from your doctor or pharmacy? Never 11/07/2023 [facility] Utilities Answer Date Recorded In the [...] a long term (including now)? No 11/07/[facility]23 [facility] IP Transportation Answer D [...] Refills Last Filled Start Date End Date rimegepant (NURTEC ODT) 75 mg Oral Tablet, Rapid Dissolve Dissolve 1 tablet in mouth at migraine onset (Max dose 75 mg/24 hours) 8 Tablet 5 03/10/2025 2:43 PM EDT 02/02/2025 atogepant 60 mg Oral Tablet Take 1 Tablet by mouth daily. 30 Tablet 5 03/10/2025 2:43 PM EDT 02/02/2025 documented in this encounter Discharge Disposition Disposition Code Departure Means Destination Home or Self Care documented in this encounter Progress Notes * Samm Ledesma APRN - 02/02/2025 11:20 AM EDT No chief complaint on file. HPI: Apr 2018--El Cooley is a 52yo RH WF that presents to clinic by self. Has had a h/o migraines since the age of 20. She then had back pain related to a trauma and then was seen Dr. Blake (around 2004) who Diagnosed her with Multiple Sclerosis. She was treated with TPM for her headaches. Later, was seen by Dr. Joshi who did not agree with the Dx of Multiple Sclerosis. In addition tothe headaches, she has had trouble with balance and bilateral leg weakness. Here to see if needs treatment for Multiple Sclerosis. Has been seen by Dr. Borden in the past and has had ESIs. Currently seen by Dr. Tran. Feels that symptoms may be worsening. Headaches do occur daily--at least 4 hours/day. No auras. Dull aching pain but then will be severe 10/10 pain. Associate with photo/phonophobias, nausea and emesis at times. Feels as if the head is going to blow off at times. Does take TPM for the headaches--no sides and notes that when off of the med, that her headaches are worse. No other known alleviating nor exacerbating factors. 29 September 2019--Video Visit--pt with continued headaches. Reports that they have been daily. Have occurred for years as above. Will last at least 6 hours each day. Pain is burning/aching type of pain that is associated with photo/phonophobia, nausea. Meds tried and failed: Ajovy, Zoloft, Zanaflex, TPM and Ultram. Did have botox x 1 (through another office) and unclear if benefit but may take at least 2 sets of injections to see benefit. Was wondering about trying to get restarted on injections. No other new symptoms. 12 Aug 2020--pt here for f/u by self. Says that her headaches have been worse. Is currently having them about 3-5x/week. Currently above her left eye. Does not feel that the TPM was effective for herand stopped in the past week. Does take Tizanidine but only prn and mostly for her back. Notes thatthe Botox is helping for her headaches but feels is not as long as until the dose. Only taking OTC a nalgesics for abortive headaches. Feels that her headaches are beginning to interfere with her work. No other new symptoms. Jun 27- Video visit- Pt having increased headaches and reaches out to office. She lost her job recently and insurance runs out at the end of the year. She is due for botox again after the first ofthe year and is concerned that she won't be able to cover it. She feels headaches are attributable to the stress from loss of job. Pain has not changed pattern and no vision changes. Having pain in the occiput and feels it has to do with neck tension. She has been taking steroids recently for otherissues. She notes an 80% reduction with migraines from botox. Will have no migraines for 8-10 weeksafter the botox. 04 February 2024 -previously seen by Dr. Hurley and JOHANN Rhodes. Her last Botox was December 2022. She has notreturned for Botox or follow-up due to cost. She continues with regular headaches. Averaging 25-30/month. Has been unable to get Ubrelvy covered. Headaches have not changed in pattern since her last visit. She has noted more trouble with her vision but has not had a recent eye exam. She continues on tizanidine managed by the spine center. Would like to restart Botox. She has a known Rathke's cyst. MRI brain pituitary protocol (01/2024) showed minimally increased size of pituitary lesion most compatible with Rathke's cyst versus a proteinaceous/hemorrhagic pituitary microadenoma. Of note she was diagnosed with breast cancer in October. She follows with oncology and surgical oncology at [place]. 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 She is following with the spine center. She has a spinal cord stimulator and pain pump. She has been having more hypoglycemic episodes. She wears a blood sugar monitor. She has been awoken from the alarm in the middle of the night. She does have trouble sleeping. She has a past history of mild sleep apnea but declined CPAP. She has not had a recent sleep study. 04 Aug 2024 - Returns for follow up. Headaches occurring daily. Migraines occurring 8-12 times a month and responsive to Nurtec as needed. She continues on Botox which is uncomfortable during injections but otherwise well-tolerated. She is using tizanidine sparingly for neck spasms otherwise relieson Tylenol or tramadol. She is following surgical oncology Dr Ulrich and radiation oncology Dr Celis for invasive ductal carcinoma of the right breast. She states she has been off chemo since May 2024. Plans to start radiation soon. She reports a history of neuropathy although prior EMG from 2018 was normal. She does note increasing numbness in the legs primarily in the toes and feet and some in the shins bilaterally. She has some intermittent tingling of the distal lower extremities. She has noticed increasing numbness of herbilateral fingertips, and to the elbow on the right side. She suspects numbness increased after chemo. She does have some intermittent tingling. She has had a couple of falls and is now ambulating with an assistive device. Has home health including PT, OT, aide. 02 February 2025 telemedicine -patient continues with migraines. Now on Qulipta 60 mg daily, Botox every 90 days. She would like to switch Ubrelvy back to Nurtec to use as needed. She is being evaluated for blood clots, elevated potassium, diarrhea in the lungs at [facility]. Allergies: allergy list reviewed and accurate PMHx: 1. Migraines since age 20 2. Vertigo 3. Sciatica 4. PTSD/Depression 5. Hyperlipidemia 6. GERD 7. HTN 8. DDD 9. Allergic rhinitis 10. S/p tonsillectomy, lumbar surgery, gastric bypass, appy, jean 11. ? Rathke's cyst 12. Breast CA FamHx: No chronic illnesses SocHx: no tob, no EtOH Current headache therapy: botox-previously with 80% reduction Qulipta 60 mg Nurtec PRN TYL and benadryl combination Toradol PO- works prn Tizanidine Compazine/Zofran Past headache therapy: Ajovy TPM Ultram Imitrex prn- tongue swelling Ubrelvy -cost prohibitive, not as effective as Nurtec PERTINENT WORKUP: MRI brain ATTN Pit (09/2020): Rathke's cleft cyst. MRI brain ATTN Pit (01/2024) - Minimally increased size of the T1 hyperintense lesion in the left superior pituitary gland now measuring 8 x 7 x 7 mm, previously 6 x 7 x 6 mm with slightly increased suprasellar extension. This remains most compatible with a Rathke's cleft cyst versus a proteinaceous/ hemorrhagic pituitary microadenoma. EMG (2017) -normal study of the right and left legs EMG - pending Past Medical History: Diagnosis Date Anemia Asthma [...] Sleep apnea no cpap Uterine prolapse 06/06/2011 Current Outpatient Medications Medication Sig Dispense Refill abemaciclib (VERZENIO) 100 mg Oral Tablet Take 1 Tablet by mouth 2 times daily. 56 Tablet 4 abemaciclib (VERZENIO) 50 mg Oral Tablet Take 1 Tablet by mouth 2 times daily. 56 Tablet 1 albuterol (PROVENTIL HFA;VENTOLIN HFA) 90 mcg/actuation Inhl HFA Aerosol Inhaler Inhale 2 Puffs into the lungs every 6 hours as needed for Wheezing. 1 Each 11 anastrozole (ARIMIDEX) 1 mg Oral Tablet Take 1 Tablet by mouth daily. 90 Tablet 3 ARIPiprazole (ABILIFY) 5 mg Oral Tablet Take 1 Tablet by mouth daily. 30 Tablet 1 atogepant 60 mg Oral Tablet Take 1 Tablet by mouth daily. 30 Tablet 5 BOTOX 200 unit Inj Recon Soln dicyclomine (BENTYL) 10 mg Oral Capsule Take 1 Capsule by mouth 3 times daily. for abdominal wcnnec81 Capsule 0 DULoxetine (CYMBALTA) 30 mg Oral Capsule, Delayed Release(E.C.) Take 1 Capsule by mouth daily. 30 Capsule 1 ergocalciferol (VITAMIN D) 1,250 mcg (50,000 unit) Oral Capsule Take 1 Capsule by mouth once a week. 12 Capsule 0 exemestane (AROMASIN) 25 mg Oral Tablet Take 25 mg by mouth daily. fluticasone furoate-vilanteroL (BREO ELLIPTA) 200-25 mcg/dose Inhl Disk with Device Inhale 1 Puff into the lungs daily. 1 Each 6 fluticasone propionate (FLONASE) 50 mcg/actuation Nasl [place], Suspension 1 [place] by Nasal route daily. 1 Each 11 Inhalational Spacing Device (AEROCHAMBER MV) Misc Spacer 1 Each by Misc.(Non- Drug; Combo Route) route as needed. 1 Device 0 ketorolac (TORADOL) 10 mg Oral Tablet Take 10 mg by mouth once. lidocaine-prilocaine (EMLA) Top Cream APPLY DIME SIZE AMOUNT TO PORT AREA 30 MINUTES PRIOR TO PORT ACCESS. 30 g 1 LORazepam (ATIVAN) 0.5 mg Oral Tablet Take 1 Tablet by mouth 2 times daily as needed for Anxiety (or Insomnia). 30 Tablet 0 losartan (COZAAR) 50 mg Oral Tablet Take 1 Tablet by mouth daily. only if BP elevated 90 Tablet 0 MAGIC MOUTHWASH (LIDO/DIPHEN/NYSTAT) ORAL COMPOUND Swish and [...] as needed for Nausea. 60 Tablet 1 oxybutynin (DITROPAN-XL) 5 mg Oral Tablet Extended Rel 24 hr Take 1 Tablet by mouth daily. 30 Tablet 0 promethazine-dextromethorphan (PROMETHAZINE-DM) 6.25-15 mg/5 mL Oral Syrup Take 5 mL by mouth 3 times daily as needed. No driving 100 mL 0 rOPINIRole (REQUIP) 0.25 mg Oral Tablet Take 1 Tablet by mouth nightly as needed. for up to 30 days. 30 Tablet 5 tiZANidine (ZANAFLEX) 4 mg Oral Tablet Take 1 tab nightly for cervicogenic headache and 1/2 tab daily prn for breakthrough pain. DO NOT TAKE AND DRIVE 45 Tablet 5 ubrogepant (UBRELVY) 100 mg Oral Tablet Take one tablet by mouth at onset of migraine. May repeat dose in 2 hours one time up to a maximum of 200mg per 24 hours. 10 Tablet 5 UNABLE TO FIND Fentanyl 500 mcg/ml in pain pump. 60 mcg/day No current facility-administered medications for this visit. Social History Socioeconomic History Marital status: Spouse name: Not on file Number of children: 4 Years of education: Not on file Highest education level: High school graduate Occupational History Employer: [employer] Tobacco Use Smoking status: Never Passive exposure: Never Smokeless tobacco: Never Vaping Use Vaping status: Never Used Substance and Sexual Activity Alcohol use: Never Drug use: Never Sexual activity: Not Currently Other Topics Concern Not on file Social History Narrative Not on file Social Drivers of Health Financial Resource Strain: Low Risk (07/07/2024) Overall Financial Resource Strain (CARDIA) Difficulty of Paying Living Expenses: Not very hard Food Insecurity: No Food Insecurity (07/07/2024) Hunger Vital Sign Worried About Running Out of Food in the Last Year: Never true Ran Out of Food in the Last Year: Never true Transportation Needs: No Transportation Needs (07/07/2024) [facility] IP Transportation In the past 12 months, has lack of reliable transportation kept you from medical appointments, meetings, work or from getting things needed for daily living?: No Physical Activity: Insufficiently Active (07/07/2024) Exercise Vital Sign Days of Exercise per Week: 3 days Minutes of Exercise per Session: 40 min Stress: Stress Concern Present (07/07/2024) [employer] [place] [employer] - Occupational Stress Questionnaire Feeling of Stress : Rather much Social Connections: Socially Isolated (11/07/2023) Social Connection and Isolation Panel [NHANES] Frequency of Communication with Friends and Family: Once a week Frequency of Social Gatherings with Friends and Family: Once a week Attends Christianity Services: 1 to 4 times per year Active Member of Clubs or Organizations: No Attends Club or Organization Meetings: Never Marital Status: Never Intimate Partner Violence: Not At Risk (11/07/2023) Humiliation, Afraid, Rape, and Kick questionnaire Fear of Current or Ex-Partner: No Emotionally Abused: No Physically Abused: No Sexually Abused: No Housing Stability: No Transportation Needs (02/24/2024) Received from [facility] Yearly Questionnaire Do you need any assistance with obtaining housing, meals, medication, transportation or medical equipment?: No Assistance needed for:: Not on file Review of Systems Negative except as per HPI Physical Exam There were no vitals filed for this visit. Gen: Well developed, well nourished Neurology Exam Mental Status: Alert. Speech fluent. Follows commands without difficulty. Cranial Nerves: III, IV, : EOMI. VII: Facial movements symmetric VIII: Hearing intact XI: Shoulder shrug symmetric XII: Tongue protrudes midline Motor: Moves all extremities spontaneously and equally. Coordination: No ataxia or tremor noted Assessment and Plan: El Cole is a 59 y.o. right handed female who returns for follow-up on 02/01/2025for chronic migraine. Chronic migraine -Continue Botox as scheduled and Qulipta 60 mg once daily. -Start Nurtec as needed which is more effective than Ubrelvy as needed. -Discussed proper use potential side effects. Discussed common headache triggers, headache hygiene,importance of keeping a headache journal Pituitary lesion , likely a cyst -MRI brain attention pituitary protocol (01/2024) showed minimally increased size of pituitary lesion most compatible with Rathke's cyst versus a proteinaceous/hemorrhagic pituitary microadenoma. Following with endocrinology. Seen UC Dr Duke (03/03/2024) felt pit lesion is likely a cyst and no inter vention and plans to follow up in 2 years. Breast cancer -Following oncology and surgical oncology Low back pain/ Leg Paresthesias L>R -Remote EMG unremarkable. -Repeat EMG one side due to recent chemo exposure -Follow with the spine center for pain/spine management. Upper extremity paresthesias -Repeat EMG one side. Follow up for botox as directed otherwise every 6 months for follow-up. Ok for telemed if no new concerns. This note was generated using voice recognition technology. It has been reviewed by the undersigned, however, may still contain unintended errors. Patient presented today for routine care follow-up through a video visit. Patient has reviewed the terms and conditions of this service as part of the registration for today's visit. Patient is awarethat a video visit does not replace a [id number] exam and further service may be necessary. I advised the patient that we are conducting his/her video visit through the office in a private space onour secure network and this video visit is being conducted in accordance with [facility] telehealth/video visit regulations. Patient had no questions prior to initiation of this visit.Approximately 20 minutes spent in consultation regarding the patient. 50% of this time spent counseling on diagn osis and plan of care. documented in this encounter Miscellaneous Notes * Addendum Note - Samm Ledesma APRN - 02/02/2025 11:20 AM EDTAddended by: SAMM LEDESMA on: 02/02/2025 12:39 PM Modules accepted: Level of Service documented in this encounter Plan of Treatment Upcoming Encounters Date Type Department Care Team (Late st Contact Info) Description 03/18/2025 7:30 AM EDT Appointment [facility] [place] [address] Adryan Rowan MD [address] [facility] [address] [place] [id number] 04/29/2025 9:15 AM EDT Appointment [place] [address] Batool Celis MD [address] [place] [address] [facility] C[facility] [place], [place] [id number] 05/19/2025 2:15 PM EST Office Visit [facility] [address] [facility] [address] [place] [address] Sin Tran MD [address] [place] [address] 06/09/2025 12:45 PM EST Procedure visit [facility] [address] [facility] [address] [place] [address] Samm Ledesma APRN [address] [facility] [address] [place] [address] 08/12/2025 10:40 AM EST Appointment [facility] [place] [address] [place] [id number] Matt Ulrich MD [address] [place] [address] [address] [place] [address] documented as of this encounter Goals Goal [...] without aura, intractable, with status migrainosus- Primary Paresthesia Disturbance of skin sensation Invasive ductal carcinoma of breast, female, right (HCC) Pituitary lesion Unspecified disorder of the pituitary gland and its hypothalamic control Radicular syndrome of left leg Thoracic or lumbosacral neuritis or radiculitis, unspecified documented in this encounter Discontinued Medications Medication Sig Discontinue Reason Start Date End Da te ubrogepant (UBRELVY) 100 mg Oral Tablet Take one tablet by mouth at onset of migraine. May repeat dose in 2 hours one time up to a maximum of 200mg per 24 hours. Alternate therapy 12/08/2024 02/02/2025 atogepant 60 mg Oral Tablet Take 1 Tablet by mouth daily. Reorder 12/08/2024 02/02/2025 documented as of this encounter Additional Health Concerns Assessment Noted Time PHQ-9 Depression Total Score: 17 024 8:39 AM EST PHQ-2 Depression Total Score: 5 07/07/20 24 8:39 AM EST documented as of this encounter Care Teams Office Service Coordinator Relationship Specialty [place] [address] [place] [id number] PCP - General 06/21/10 03/08/25 Arlyn Schmidt MD [address] [place] [address] Consulting Physician Internal Medicine-Endocrinology, Diabetes & Metabolism 11/28/20 Tacho Echavarria MD [address] [place] [address] Internal Medicine-Medical Oncology 11/12/23 Matt Ulrich MD [address] [place] [address] Surgery-Surgical Oncology 12/04/23 Eze Brock Pastoral Care 12/13/23 Annette Walker, INSTRUCTIONAL DESIGN MANAGER Globe Tester 05/13/24 Batool Celis MD [address] [facility] [place] [address] Radiation Oncologist Radiology-Radiation Oncology 06/08/24 documented as of this encounter
--- OUTSIDE RECORDS SUMMARY | 2025-02-04 11:00 | XMS_ITS | Encounter Summary ---
Author Organization [place] [address] Care Team Providers Care Blister Packaging Machine Operator Name Role Phone Chetna Cedeno MD Primary Care Provider [phone] Arlyn Schmidt MD Unavailable [phone] Tacho Echavarria MD Unavailable [phone] Matt Ulrich MD Unavailable [phone] Eze Brock Unavailable Annette Walker Unavailable [phone] Batool Celis MD Unavailable [phone] Reason for Referral * Consultation (Routine) - Closed Specialty Diagnoses / Procedures Referred By Contac t Referred To Contact Oncology Diagnoses Invasive ductal carcinoma of breast, female, right (HCC) Procedures [place] OFFICE/OUTPATIENT NEW MODERATE MDM 45 MINUTES Naya García PA-C [address] [place] [address] [address] [place] [address] Phone: tel: fax: [facility] [place] [address] Phone: tel: Referral ID Status Reason Start Date Expiration Date Visits Re quested Visits Authorized [id number] Closed 02/04/2025 02/04/2026 1 1 Question Answer Patient Status In Treatment - Survivorship visit today/not new diagnosis Reason for referral? Survivorship * Mammography (Routine) - Pending Review Specialty Diagnoses / Procedures Referred By Van butler Referred To Contact Radiology Diagnoses Encounter for screening mammogram for breast cancer Procedures MM MAMMO DIGITAL STEPHANE SCREEN LEFT Naya García PA-C [address] [place] [address] [address] [place] [address] Phone: tel: fax: Referral ID Status Reason Start Date Expiration Date V isits Requested Visits Authorized [id number] Pending Review 02/04/2025 02/04/2027 1 1 Reason for Visit * Reason Comments Follow-up Survivorship Encounter Details Date Type Department Care Team (Latest Contact Info) Description 02/04/2025 11:00 AM EDT - 02/04/2025 1:47 PM EDT Hospital Encounter [facility] [place] [address] Tacho Echavarria MD [address] [place] [address] Naya García PA-C [address] [place] [address] [address] [place] [address] Invasive ductal carcinoma of breast, female, right [...] from your doctor or pharmacy? Never 11/07/2023 [facility] Utilities Answer Date Recorded In the past 12 months has [employer], gas, oil, or water [employer] threatened to shut off services in your [...] Date Recorded PHQ-2 Total Score 5 07/07/2024 [facility] - [...] time in the past 12 m [facility], were you homeless or living in a residential (including now)? No 11/07/2023 [facility] IP Transportation Answer D ate [...] 4 fluticasone propionate (FLONASE) 50 mcg/actuation Nasl [place], Suspension 1 [place] by Nasal route daily. 1 Each [...] back pain. Family Hx updated. Discharged from [facility] yesterday, states had a [...] Medical Oncologist: Dr. Tacho Echavarria PRIOR TREATMENT: Ashiwn-adjuvant dose dense Misbah/Cytoxan (AC) x 4 -> [...] fits ok. She was recently in [facility] and diagnosed with PE. On blood thinner. [...] Invasive ductal carcinoma, grade 3 ER 80%, AK 11%, Her2 negative B. Breast, right, 5:00 Invasive ductal carcinoma grade 3 ER 92%, AK 55%, Her2 negative 11/11/2023 - Consult Initial [...] GI tolerance for 2 yr planned ([place]-E regimen) 10/2024 - changed to Aromasin d/t [...] Stage IIIB (cT3, cN3a(f), cM0, G3, ER+, AK+, HER2-) Pathologic Stage ypT3, ypN3a, G3, ER+, AK+, HER2- 02/04/2025 - Other Naya García PA-C [...] Stage IIIB (cT3, cN3a(f), cM0, G3, ER+, AK+, HER2-) - Unsigned - Pathologic stage from 07/06/2024: ypT3, ypN3a, G3, ER+, AK+, HER2- - Unsigned RECENT IMAGING: Right MTX [...] by mouth 3 times daily. for abdominal [id number] Capsule 0 DULoxetine (CYMBALTA) 30 mg Oral [...] 6 fluticasone propionate (FLONASE) 50 mcg/actuation Nasl [place], Suspension 1 [place] by Nasal route daily. 1 Each [...] breast (HCC) 10/14/2023 Migraines MS (multiple sclerosis) ([facility]) Pituitary cyst Prediabetes PTSD (post-traumatic stress disorder) Sleep apnea no cpap Uterine prolapse 06/06/2011 Past Surgical History: Procedure Laterality Date APPENDECTOMY BREAST BIOPSY Right 10/25/2023 5:00 and 6:00 CHOLECYSTECTOMY GASTRIC BYPASS SURGERY N/A 05/01/2017 LAPAROSCOPIC SLEEVE GASTRECTOMY ; Surgeon: Marcus Perez MD; Location: [facility] MAIN OR; Service: General IR 2 LEVEL BILATERAL MEDIAL BRANCH BLOCK LUM SAC 09/01/2018 IR 2 LEVEL BILATERAL MEDIAL BRANCH BLOCK LUM SAC 09/01/2018 [facility] IR 2 LEVEL BILATERAL MEDIAL BRANCH BLOCK LUM SAC 01/26/2019 IR 2 LEVEL BILATERAL MEDIAL BRANCH BLOCK LUM SAC 01/26/2019 [facility] SPINE CTR IMAGING IR FLUOROSCOPY GUIDED NEEDLE PLACEMENT 01/17/2021 IR FLUOROSCOPY GUIDED NEEDLE PLACEMENT 01/17/2021 [facility] IR GUIDED INJECT TRANSFORAM EPIDUR LUMB OR SACRAL SINGLE LVL 08/03/2022 IR GUIDED INJECT TRANSFORAMINAL EPIDUR LUMB OR SACRAL SINGLE LVL 08/03/2022 Sin Tran MD [facility] SPINE CTR IMAGING IR PORT PLACEMENT EQUAL OR > 5 YEARS 11/29/2023 IR PORT PLACEMENT EQUAL OR > 5 YEARS 11/29/2023 Joselito Goodwin MD [facility] IR LUMBAR DISC SURGERY 09/11/2012 LUMBAR LAMINECTOMY & DISCECTOMY L4-5 LEFT ; Surgeon: Hetal Borden MD; MASTECTOMY Right 07/06/2024 Right modified radical mastectomy; Surgeon: Matt Ulrich MD; Location: [facility] MAIN OR; Service:General SPINE SURGERY N/A 01/04/2021 PAIN PUMP PERMANENT IMPLANT; Surgeon: Munir Hilton MD; Location: [facility] OR; Service: Pain Management THORACIC SPINE SURGERY N/A 02/24/2020 SPINAL CORD STIMULATOR IMPLANT; Surgeon: Munir Hilton MD; Location: [facility] OR; Service: Pain Management TONSILLECTOMY UPPER GASTROINTESTINAL ENDOSCOPY UPPER GASTROINTESTINAL ENDOSCOPY N/A 01/26/2015 ESOPHAGOGASTRODUODENOSCOPY with biopsy and davis dilation; Surgeon: Stone Cronin MD; Location: [facility]; Service: Endoscopy Allergies Allergen Reactions Amoxicillin [...] level: High school graduate Occupational History Employer: [employer] Tobacco Use Smoking status: Never Passive exposure: [...] true Transportation Needs: No Transportation Needs (07/07/2024) [facility] IP Transportation In the past 12 months, has lack of reliable transportation kept you from medical appointments, meetings, work or from getting things needed for daily living?: No Physical Activity: Insufficiently Active (07/07/2024) Exercise Vital Sign Days of Exercise per Week: 3 days Minutes of Exercise per Session: 40 min Stress: Stress Concern Present (07/07/2024) [place] [employer] Occupational Health - Occupational Stress Questionnaire [...] Stability: No Transportation Needs (02/24/2024) Received from [facility] Yearly Questionnaire Do you need any [...] of this patient. Naya García PA-C Breast [facility] Total time approx. 50 minutes, including review of notes, kwzr-kr-zwqw interaction, and documentation. Reviewed past pathology and [...] to access video: Lymphatic Massage YouTube Video [email or web address] Discuss DEXA scan with medical oncology, your last in our system was on 12/29/20. Breast Health Nurse Contact - Report new changes by calling the Breast Health Nurse Line at [phone]. Please remember the nurse checks voice mail [...] Desiree The number to our Boutique is [phone]. You may call to set up an [...] off all the clothes above your waist. industrial education instructor front of a mirror in a room [...] circles with your fingers. For the first mcgrath, press lightly. Forthe second mcgrath, press harder. For the third mcgrath, press even harder. Keep making circles with [...] breast in the same way. Sit or internet consultant the shower or tub. With soapy water [...] 12/10/2008 Document Revised: 11/29/2016 Document Reviewed: 05/13/2016 [employer] Interactive Patient Education ?? 2018 [employer] It is best not to drink [...] almonds. Get enough vitamin D - recommend 6417-5308 IU/day Vitamin D is the most essential [...] Info) Description 03/18/2025 7:30 AM EDT Appointment [facility] [place] [address] Adryan Rowan MD [address] [place] [address] [address] [place] [address] 04/29/2025 9:15 AM EDT Appointment [facility] [place] [address] Batool Celis MD [address] [facility] [place] [address] 05/19/2025 2:15 PM EST Office Visit [facility] [address] [facility] [address] [place] [address] Sin Tran MD [address] [place] [address] 06/09/2025 12:45 PM EST Procedure visit [facility] [address] [place] [address] Samm Ledesma APRN [address] [facility] [address] [place] [address] 08/12/2025 10:40 AM EST Appointment [facility] [place] [facility] [place] [address] Matt Ulrich MD [address] [facility] [address] [place] [address] Scheduled Orders Name Type Priority Associated Diagnoses [...] documented as of this encounter Care Teams Blister Packaging Machine Operator Relationship Specialty [place] [address] [place] [address] PCP - General 06/21/10 03/08/25 Arlyn Schmidt MD [address] [place] [address] Consulting Physician Internal Medicine-Endocrinology, Diabetes & Metabolism 11/28/20 Tacho Echavarria MD 1 [place] [address] Internal Medicine-Medical Oncology 11/12/23 Matt Ulrich MD [address] [place] [address] Surgery-Surgical Oncology 12/04/23 Eze Brock Pastoral Care 12/13/23 Annette Walker, ARACELI Tanker Driver 05/13/24 Batool Celis MD [address] [place] [address] [place] [address] Radiation Oncologist Radiology-Radiation Oncology 06/08/24 documented as of this encounter
--- OUTSIDE RECORDS SUMMARY | 2025-02-04 13:48 | XMS_ITS | Encounter Summary ---
Author Organization [place] [address] Care Team Providers Care Spin Instructor Name Role Phone Chetna Cedeno MD Primary Care Provider [phone] Arlyn Schmidt MD Unavailable [phone] Tacho Echavarria MD Unavailable [phone] Matt Ulrich MD Unavailable [phone] Eze Brock Unavailable Annette Walker Unavailable [phone] Batool Celis MD Unavailable [phone] Encounter Details Date Type Department Care Team (Latest Contact Info) Description 02/04/2025 1:48 PM EDT - 02/04/2025 2:02 PM EDT Hospital Encounter [facility] [place], [place] [id number] Tacho Echavarria MD 1 [place], [place] [id number] Invasive ductal carcinoma of breast, female, right [...] doctor or pharmacy? Never 11/07/2023 [facility] Utilities Answer Date Recorded In the [...] often do you attend chur ch or islam services? 1 to 4 times per year [...] Date Recorded PHQ-2 Total Score 5 07/07/2024 [facility] - [...] in a detention (including now)? No 11/07/2023 [facility] IP Transportation Answer D ate [...] 4 fluticasone propionate (FLONASE) 50 mcg/actuation Nasl [place], Suspension 1 [place] by Nasal route daily. 1 Each 11 [...] Info) Description 03/18/2025 7:30 AM EDT Appointment [facility] [place], [place] [id number] Adryan Rowan MD [address] [place] [id number] 04/29/2025 9:15 AM EDT Appointment [facility] [address] Batool Celis MD [address] [place] [address] [place] [address] 05/19/2025 2:15 PM EST Office Visit [address] [place] [address] [place] [address] [place] [address] 06/09/2025 12:45 PM EST Procedure visit [facility] [address] [facility] [address] [place], [place] [id number] Samm Ledesma, PLANISHING PRESS OPERATOR [address] [place] [address] 08/12/2025 10:40 AM EST Appointment [facility] Women's Wellness [facility] [place] [address] Matt Ulrich MD [address] [place] [address] [address] [place] [address] documented as of this encounter Goals Goal Patient Goal Type Associated Problems Recent Progress Patient-Stated? Author Blood Pressure < 140/90 Blood Pressure 121/77(02/04 2:04 PM EDT) No Chetna Cedeno MD Breast [facility] Breast Health On track(2024 11:27 AM EDT) No Jasmin Porter, RAUL Note: Patient acknowledges understanding of new diagnosis, plan of care, available resources and how to contact Nurse Navigator with any future questions or concerns. Breast [facility] Health Not on track(2024 11:27 AM EDT) No Jasmin Porter, RAUL Note: Patient will be compliant with monthly SBE and is aware of who to contact for any unusual or concerning findings. Breast [facility] Health On track(2024 11:27 AM EDT) No Demi Garibay, RAUL Note: Patient will be compliant with taking Aromatase Inhibitor daily and understands who to contact to discuss any side effects or complications. Maintain a healthy diet, exercise regularly and maintain an ideal body weight General No Sanam Julio MA documented as of this encounter Procedures Procedure Name Priority Date/Time Associated Diagnosis Comments VITAMIN B12/ FOLIC ACID Routine 02/04/2025 2:03 PM EDT Invasive ductal carcinoma of breast, female, right (HCC) CBC WITH DIFF STAT 02/04/2025 2:03 PM EDT Invasive ductal carcinoma of breast, female, right (HCC) IRON+TIBC Routine 02/04/2025 2:02 PM EDT Invasive ductal carcinoma of breast, female, right (HCC) COMPREHENSIVE METABOLIC PANEL STAT 02/04/2025 2:02 PM EDT Invasive ductal carcinoma of breast, female, right (HCC) documented in this encounter Results * VITAMIN B12/ FOLIC ACID (02/04/2025 2:03 PM EDT) [facility] Vitamin B12 271 232 - 1,245 pg/mL 02/04/2025 4:31 PM EDT [facility] Folate 6.16 >=4.80 ng/mL 02/04/2025 4:31 PM EDT [facility] Blood VENOUS BLOOD / Unknown Venipuncture / Unknown 02/04/2025 2:03 PM EDT 02/04/2025 2:03 PM EDT Narrative [facility] - 02/04/2025 4:31 PM EDT Ingestion of haroon doses of biotin (>5 mg/day) taken within 8 hours of drawing blood sample can interfere with this immunoassay test. Tacho Echavarria MD CHEMISTRY ORDERABLES Final Result [facility] [address] [facility] [place], [place] [address] * (ABNORMAL) CBC WITH DIFF (02/04/2025 2:03 PM EDT) [facility] WBC 8.1 3.7 - 10.3 x10(3)/mc L 02/04/2025 2:07 PM EDT [facility] RBC 2.95(L) 3.90 - 5.20 x10(6)/mc L 02/04/2025 2:07 PM EDT [facility] Hgb 9.4(L) 11.2 - 15.7 g/dL 02/04/2025 2:07 PM EDT [facility] Hct 28.1(L) 34.0 - 45.0 % 02/04/2025 2:07 PM EDT [facility] MCV 95.3 80.0 - 100.0 fL 02/04/2025 2:07 PM EDT [facility] MCH 31.9 26.0 - 34.0 pg 02/04/2025 2:07 PM EDT [facility] MCHC 33.5 30.7 - 35.5 g/dL 02/04/2025 2:07 PM EDT [facility] RDW 15.0(H) <=14.9 % 02/04/2025 2:07 PM EDT [facility] Platelet 163 155 - 369 x10(3)/mc L 02/04/2025 2:07 PM EDT [facility] MPV 8.8 8.8 - 12.5 fL 02/04/2025 2:07 PM EDT [facility] Neut # Prelim 5.6 1.6 - 6.1 x10(3)/mc L 02/04/2025 2:07 PM EDT [facility] Comment:Preliminary automate d absolute neutrophil count. Value may change if manual differential is indicated. Neut Percent 68.4 % 02/04/2025 2:07 PM EDT [facility] Comment:Neutrophils equals s egs plus bands Imm Gran% 0.2 % 02/04/2025 2:07 PM EDT [facility] Comment:Automated count of m etamyelocytes, myelocytes and promyelocytes. Lymph Percent 23.4 % 02/04/2025 2:07 PM EDT [facility] [place] Percent 5.7 % 02/04/2025 2:07 PM EDT [facility] Eos Percent 2.1 % 02/04/2025 2:07 PM EDT [facility] Baso Percent 0.2 % 02/04/2025 2:07 PM EDT [facility] Neut # 5.6 1.6 - 6.1 x10(3)/mc L 02/04/2025 2:07 PM EDT [facility] Comment:Neutrophils equals s egs plus bands IMMGRAN# 0.0 0.0 - 0.1 x10(3)/mc L 02/04/2025 2:07 PM EDT [facility] Comment:Automated count of m etamyelocytes, myelocytes and promyelocytes. An absolute IG <0.1 is reported as 0.0. Lymph # 1.9 1.2 - 3.9 x10(3)/mc L 02/04/2025 2:07 PM EDT [facility] [place] # 0.5 0.3 - 0.9 x10(3)/mc L 02/04/2025 2:07 PM EDT [facility] Eos# 0.2 0.0 - 0.5 x10(3)/mc L 02/04/2025 2:07 PM EDT [facility] Baso # 0.0 0.0 - 0.1 x10(3)/mc L 02/04/2025 2:07 PM EDT [facility] Blood VENOUS BLOOD / Unknown Venipuncture / Unknown 02/04/2025 2:03 PM EDT 02/04/2025 2:03 PM EDT us Tacho Echavarria MD HEMATOLOGY ORDERABLES Final Result Performing Organization Address City/[facility]/ZIP Co de Phone Number [facility] 1 [place] [address] * IRON+TIBC (02/04/2025 2:02 PM EDT) Iron 82 30 - 160 mcg/dL 02/04/2025 2:59 PM EDT [facility] Transferrin 279 200 - 360 mg/dL 02/04/2025 2:59 PM EDT [facility] Transferrin Saturation 21 20 - 50 % 02/04/2025 2:59 PM EDT [facility] TIBC 391 250 - 400 mcg/dL 02/04/2025 2:59 PM EDT [facility] Blood VENOUS BLOOD / Unknown Venipuncture / Unknown 02/04/2025 2:02 PM EDT 02/04/2025 2:02 PM EDT us Tacho Echavarria MD CHEMISTRY ORDERABLES Final Result [facility] 1 [place] [address] [facility] [address] [facility] [place], [place] [address] * (ABNORMAL) COMPREHENSIVE METABOLIC PANEL (02/04/2025 2:02 PM EDT) Sodium 142 136 - 145 mmol/L 02/04/2025 2:28 PM EDT [facility] Potassium 3.3(L) 3.5 - 5.0 mmol/L 02/04/2025 2:28 PM T [facility] Chloride 108(H) 98 - 107 mmol/L 02/04/2025 2:28 PM [facility] Total CO2 19(L) 22 - 29 mmol/L 02/04/2025 2:28 PM [facility] Anion Gap 15 7 - 16 mmol/L 02/04/2025 2:28 PM T [facility] Calcium 8.6 8.6 - 10.4 mg/dL 02/04/2025 2:28 PM [facility] Glucose Lvl 134(H) 70 - 99 mg/dL 02/04/2025 2:28 PM [facility] BUN 12 6 - 20 mg/dL 02/04/2025 2:28 PM [facility] Creatinine 0.78 0.51 - 1.30 mg/dL 02/04/2025 2:28 PM [facility] Albumin 3.8 3.5 - 5.2 gm/dL 02/04/2025 2:28 PM [facility] Total Protein 6.0(L) 6.4 - 8.3 gm/dL 02/04/2025 2:28 PM [facility] Bili Total 0.3 0.2 - 1.3 mg/dL 02/04/2025 2:28 PM [facility] ALT 8 <=41 U/L 02/04/2025 2:28 PM [facility] AST 12 <=40 U/L 02/04/2025 2:28 PM T [facility] Alk Phos 95 36 - 123 U/L 02/04/2025 2:28 PM [facility] eGFR (CKD-EPIcr 2020) 88 >=60 mL/min/1.7 3 m2 02/04/2025 2:28 PM [facility] Comment:Estimated GFR was ca lculated using the CKD-EPIcr (2020) equation refit without race. The equation is recommended by the National Kidney Foundation - [employer] of Nephrology Task Force. Blood VENOUS BLOOD / Unknown Venipuncture / Unknown 02/04/2025 2:02 PM EDT 02/04/2025 2:02 PM EDT [facility] Radha Echavarria MD CHEMISTRY ORDERABLES Final Result [facility] 1 [place] [address] documented in this encounter Visit Diagnoses Diagnosis Invasive ductal carcinoma of breast, female, right (HCC)- Primary documented in this encounter Administered Medications Inactive Administered Medications - up to 1 most recent administrations Medication Order MAR Action Action Date Dose Rate Site heparin flush 100 unit/mL injection 500 Units 500 Units, Intravenous, PRN, Starting on Pari 02/04/25 at 1404, Until Sat02/05/25 at 0408, Line Care, For access and maintenance care of Central Venous Access Device., Dx: 1. Invasive ductal carcinoma of breast, female, right (HCC)Indications:Invasive ductal carcinoma of breast, female, right (HCC) Given 02/04/2025 2:04 PM EDT 500 Units sodium chloride 0.9 % sterile syringe 10 mL 10 mL, Intravenous, PRN, Starting on Pari 02/04/25 at 1404, Until Sat02/05/25 at 0408, Line Care, For access and maintenance care of Central Venous Access Device., Dx: 1. Invasive ductal carcinoma of breast, female, right (HCC)Indications:Invasive ductal carcinoma of breast, female, right (HCC) Given 02/04/2025 2:04 PM EDT 10 mL documented in this encounter Additional Health Concerns Assessment Noted Time PHQ-9 Depression Total Score: 17 024 8:39 AM EST PHQ-2 Depression Total Score: 5 07/07/20 24 8:39 AM EST documented as of this encounter Care Teams Spin Instructor Relationship Specialty [place] [address] [address] [facility] [place] [address] PCP - General 06/21/10 03/08/25 Arlyn Schmidt MD [address] [place] [address] Consulting Physician Internal Medicine-Endocrinology, Diabetes & Metabolism 11/28/20 Tacho Echavarria MD [address] [place] [phone] Internal Medicine-Medical Oncology 11/12/23 Matt lUrich MD [address] [place] [phone] Surgery-Surgical Oncology 12/04/23 Eze Brock Pastoral Care 12/13/23 Annette Walker, RAIL DOWELING MACHINE OPERATOR Dynamometer Mechanic 05/13/24 Batool Celis MD [address] [facility] [place] [address] Radiation Oncologist Radiology-Radiation Oncology 06/08/24 documented as of this encounter
--- OUTSIDE RECORDS SUMMARY | 2025-02-04 14:03 | XMS_ITS | Encounter Summary ---
Author Organization [place] [address] Care Team Providers Care Bender Machine Operator Name Role Phone Chetna Cedeno MD Primary Care Provider [phone] Arlyn Schmidt MD Unavailable [phone] Tacho Echavarria MD Unavailable [phone] Matt Ulrich MD Unavailable [phone] Eze Brock Unavailable Annette Walker Unavailable [phone] Batool Celis MD Unavailable [phone] Reason for Visit * Reason Comments Follow-up Breast Cancer Encounter Details Date Type Department Care Team (Latest Contact Info) Description 02/04/2025 2:03 PM EDT - 02/04/2025 11:59 PM EDT Hospital Encounter [facility] Care Medical Oncology [place], [place] [phone] Tacho Echavarria MD [address] [place] [phone] Invasive ductal carcinoma of breast, female, right [...] in the past 12 m [facility], were you homeless or living in a fci (including now)? No 11/07/2023 [facility] IP Transportation Answer D ate Recorded [...] 4 fluticasone propionate (FLONASE) 50 mcg/actuation Nasl [place], Suspension 1 [place] by Nasal route daily. 1 Each 11 [...] were not included. Patient: [place] Cole CSN: [id number] Date of : 1965 Age: 59 y.o. Date of Service: 02/04/2025 HEMATOLOGY/ONCOLOGY FOLLOW UP VISIT Primary Retail Performance Coach & Oncologist: Tacho Echavarria MD. Patient Care Team: Chetna Cedeno MD as PCP - General Arlyn Schmidt MD as Consulting Physician (Internal Medicine-Endocrinology, Diabetes & Metabolism) Tacho Echavarria MD (Internal Medicine-Medical Oncology) Matt Ulrich MD (Surgery-Surgical Oncology) Eze Brock as Pastoral Care Annette Walker MSW as Pullman Clerk Batool Celis MD as Radiation Oncologist (Radiology-Radiation Oncology) [facility] , [place], [place]: Dr Beata Kebede: [phone] Next of Kin: Daughter Ruthy Man ([phone]) Patient Contact info: [phone] DIAGNOSIS HISTORY DATE OF INITIAL CONSULTATION: 11/14/23; outside 2nd opinion at on 09/23/2024 CURRENT TREATMENT BREAST CA: adjuvant [place]-E regimen: Aromasin 25mg po daily + dose titration up of Abemacyclib (Verzenio) 50mg po bid -> 100 mg po bid, per NCCN guidelines PE (02/02/25, at [facility]) and Prothrombin gene mutation carrier for Factor [...] to GI tolerance for 2 yr planned ([place]-E regimen) 10/2024 - changed to Aromasin d/t [...] CalcPt Dosage Given to Date in Gy 10.96007524 Session Dosage Given in Gy 2.40271504 Reference Point ID LN Boost RP Dosage Given to Date in Gy 10 Session Dosage Given in Gy 1.50253613 Reference Point ID [id number] ISO Dosage Given to Date in Gy 40.54375863 Session Dosage Given in Gy 0.64520173 Plan ID Nd Boost Plan Name Nd [...] mild 11/26/2014 Malignant neoplasm of female breast ([facility]) 10/14/2023 Migraines MS (multiple sclerosis) ([facility]) Pituitary cyst Prediabetes PTSD (post-traumatic stress disorder) Sleep apnea no cpap Uterine prolapse 06/06/2011 PAST SURGICAL HISTORY Past Surgical History: Procedure Laterality Date APPENDECTOMY BREAST BIOPSY Right 10/25/2023 5:00 and 6:00 CHOLECYSTECTOMY GASTRIC BYPASS SURGERY N/A 05/01/2017 LAPAROSCOPIC SLEEVE GASTRECTOMY ; Surgeon: Marcus Perez MD; Location: [facility] MAIN OR; Service: General IR 2 [...] radical mastectomy; Surgeon: Matt Ulrich MD; Location: [facility] MAIN OR; Service:General SPINE SURGERY N/A 01/04/2021 PAIN PUMP PERMANENT IMPLANT; Surgeon: Munir Hilton MD; Location: [facility] MAIN OR; Service: Pain Management THORACIC SPINE SURGERY N/A 02/24/2020 SPINAL CORD STIMULATOR IMPLANT; Surgeon: Munir Hilton MD; Location: [facility] MAIN OR; Service: Pain Management TONSILLECTOMY UPPER GASTROINTESTINAL ENDOSCOPY UPPER GASTROINTESTINAL ENDOSCOPY N/A 01/26/2015 ESOPHAGOGASTRODUODENOSCOPY with biopsy and davis dilation; Surgeon: Stone Cronin MD; Location: [facility] ENDOSCOPY; Service: Endoscopy FAMILY HISTORY Family [...] op ddAC/Taxane chemo for her high risk ER/[place] positive large RIGHT BREAST Carcinoma. She has [...] agent therapy, also reinforced via consult at [facility] . Now being seen post hospital discharge for [...] help with use of Cymbalta. Was at [facility] and wanting to request transfer of [facility] records to oncology clinic there. ECOG PS: [...] Device fluticasone propionate (FLONASE) 50 mcg/actuation Nasl [place], Suspension Inhalational Spacing Device (AEROCHAMBER MV) Misc [...] Gran% 0.2 % Lymph Percent 23.4 % [place] Percent 5.7 % Eos Percent 2.1 % Baso Percent 0.2 % Neut # 5.6 1.6 - 6.1 x10(3)/mcL IMMGRAN# 0.0 0.0 - 0.1 x10(3)/mcL Lymph # 1.9 1.2 - 3.9 x10(3)/mcL [place] # 0.5 0.3 - 0.9 x10(3)/mcL Eos# [...] G43.719-Chronic migraine without aura, intractable, without status [id number]. COMPARISON: Multiple priors with the latest MRI [...] Oliva MD Performing Provider Shaylee Roque???LOUIE Restrepo REHAB CARE ASSISTANT Viv Martinez RN Quality Assurance Manager Madelyn Sidhu RN Endoscopy Nurse Aliya Friedman [...] facility Neurosurgeon (Dr Benoit Duke at [facility]) and no need for surgical resection now, surveillance plan defined in his note of 02/24/24 noted Chemo induced anemia - as expected, stable cont 1 tab MVI po daily, asked for borderline VIT B12 tostart VIT B12 1000 mcg po daily otc PE/ Prothrombin gene carrier - obtaining records from [facility], meanwhile stay on FDAapproved dosing of JUSTYN [...] Echavarria MD Hematology and Medical Oncology [facility] [phone] *This note was dictated using voice recognition [...] also performed on this calendar day: d/w Marketing Project Lead about her care and symptom burden/depression * Rosana Gupta, RN - 02/04/2025 2:20 PM EDT Fax sent to [facility] Records at [facility] Request for records from most recent hospitalization [...] Info) Description 03/18/2025 7:30 AM EDT Appointment [facility] [place] [address] Adryan Rowan MD [address] [facility] [address] [place] [id number] 04/29/2025 9:15 AM EDT Appointment [place] [address] Batool Celis MD 1 [facility] [place] [place] [address] 05/19/2025 2:15 PM EST Office Visit [facility] [place] [address] [place] [address] [address] [place] [address] Sin Tran MD [address] [place] [address] 06/09/2025 12:45 PM EST Procedure visit [facility] [address] [place] [address] Samm Ledesma, JAVA SOFTWARE DEVELOPER [address] [place] [address] 08/12/2025 10:40 AM EST Appointment [facility] Women's Wellness [place] [facility] [place] [id number] Matt Ulrich MD [address] [place] [address] [address] [place] [address] documented as of this encounter Goals Goal Patient Goal Type Associated Problems Recent Progress Patient-Stated? Author Blood Pressure < 140/90 Blood Pressure 121/77(02/04 2:04 PM EDT) No Chetna Cedeno MD Breast [facility] Breast Health On track(2024 11:27 AM EDT) No Jasmin Porter, RAUL Note: Patient acknowledges understanding of new diagnosis, plan of care, available resources and how to contact Nurse Navigator with any future questions or concerns. Breast [facility] Breast Health Not on track(2024 11:27 AM EDT) No Jasmin Porter, RAUL Note: Patient will be compliant with monthly SBE and is aware of who to contact for any unusual or concerning findings. Breast [facility] Breast Health On track(2024 11:27 AM EDT) [...] documented as of this encounter Care Teams Bender Machine Operator Relationship Specialty Start [place] [address] [place] [id number] PCP - General 06/21/10 03/08/25 Arlyn Schmidt MD [address] [place], [place] [address] Consulting Physician Internal Medicine-Endocrinology, Diabetes & Metabolism 11/28/20 Tacho Echavarria MD 1 [place] [address] Internal Medicine-Medical Oncology 11/12/23 Matt Ulrich MD 1 [place] [address] Surgery-Surgical Oncology 12/04/23 Eze Brock Pastoral Care 12/13/23 Annette Walker MSW Pullman Clerk 05/13/24 Batool Celis MD 1 [facility] [place] [address] Radiation Oncologist Radiology-Radiation Oncology 06/08/24 documented as of this encounter
--- OUTSIDE RECORDS SUMMARY | 2025-02-10 10:30 | XMS_ITS | Encounter Summary ---
Author Organization [place] [address] Care Team Providers Care Livestock Farmer Name Role Phone Chetna Cedeno MD Primary Care Provider [phone] Arlyn Schmidt MD Unavailable [phone] Tacho Echavarria MD Unavailable [phone] Matt Ulrich MD Unavailable [phone] Eze Brock Unavailable Annette Walker Unavailable [phone] Batool Celis MD Unavailable [phone] Reason for Visit * Reason Comments Follow-up Pump Refill Encounter Details Date Type Department Care Team (Late st Contact Info) Description 02/10/2025 10:30 AM EDT Office Visit [facility] Spine [address] [address] Sin Tran MD [address] [place] [address] Chronic pain syndrome (Primary Dx); Post [...] doctor or pharmacy? Never 11/07/2023 [facility] Utilities Answer Date Recorded In [...] often do you attend chur ch or evangelical services? 1 to 4 times per year [...] Score 5 07/07/2024 [facility] - Occupational Stress Questionnaire Answer [...] time in the past 12 m [facility], were you homeless or living in a alf (including now)? No 11/07/2023 [facility] IP Transportation Answer D ate [...] No edema, warmth, erythema, or fluctuance. The Cap That analyzer was used to interrogate the SynchroMed [...] well Sin Tran MD Interventional Pain Management [place] [facility] documented in this encounter Plan of Treatment Upcoming Encounters Date Type Department Care Team (Late st Contact Info) Description 03/18/2025 7:30 AM EDT Appointment [facility] [place] [address] Adryan Rowan MD 14[address] [facility] [address] [place] [address] 04/29/2025 9:15 AM EDT Appointment [facility] RAD ONC [place], [place] [id number] Batool Celis MD 1 [facility] [place] [address] 05/19/2025 2:15 PM EST Office Visit [facility] Spine [facility] 49[address] [facility] [address] [place] [address] Sin Tran MD 4900 [place] [address] 06/09/2025 12:45 PM EST Procedure visit [facility] [address] [place] [address] Samm Ledesma, PLYCOR OPERATOR [address] [facility] [address] [place] [address] 08/12/2025 10:40 AM EST Appointment [facility] Women's Wellness [place] One [facility] [place] [address] Matt Ulrich MD [address] [place] [address] [address] [place] [address] documented as of this encounter Goals Goal [...] documented as of this encounter Care Teams Livestock Farmer Relationship Specialty [place] [address] [address] [place] [address] PCP - General 06/21/10 03/08/25 Arlyn Schmidt MD [address] [place] [address] Consulting Physician Internal Medicine-Endocrinology, Diabetes & Metabolism 11/28/20 Tacho Echavarria MD 1 [place] [address] Internal Medicine-Medical Oncology 11/12/23 Matt Ulrich MD 1 [place], [place] [address] Surgery-Surgical Oncology 12/04/23 Eze Brock Pastoral Care 12/13/23 Annette Walker, ARACELI Assistive Technology Trainer 05/13/24 Batool Celis MD 1 [facility] [place] [address] Radiation Oncologist Radiology-Radiation Oncology 06/08/24 documented as of this encounter
--- OUTSIDE RECORDS SUMMARY | 2025-03-10 13:30 | XMS_ITS | Encounter Summary ---
Author [place] [address] Care Team Providers Care Poultry Killer Name Role Phone Arlyn Schmidt MD Unavailable [phone] Tacho Echavarria MD Unavailable [phone] Matt Ulirch MD Unavailable [phone] Eze Brock Unavailable Annette Walker TAX COMPLIANCE AGENT Unavailable [phone] Batool Celis MD Unavailable [phone] Ayush Marrero MD Primary Care Provider [phone] Reason for Visit * In Office Procedure (Routine) - PCP Precert Acquired Specialty Diagnoses / Procedures Referred By Van t Referred To Contact Neurology Diagnoses Chronic migraine without aura, intractable, with status migrainosus Procedures BOTOX COMMUNICATION ORDER ID INJECTION,ONABOTULINUMTOXINA ID CHEMODERVATE FACIAL/TRIGEM/CERV MUSC MIGRAINE Samm Ledesma, SIGNAL TOWER DIRECTOR [address] [address] Phone: tel: fax: Samm Ledesma, SIGNAL TOWER DIRECTOR [address] [place] [address] Phone: tel: fax: Referral ID Status Reason Start Date Expiration Date V isits Requested Visits Authorized [id number] PCP Precert Acquired 03/10/2025 03/10/2026 1 4 Encounter Details Date Type Department Care Team (Late st Contact Info) Description 03/10/2025 1:30 PM EDT Procedure visit [facility] [address] [place] [address] Krissy Rhodes, SIGNAL TOWER DIRECTOR [address] [place] [address] Chronic migraine without aura, intractable, with status [...] has e electric, gas, oil, or water [employer] threatened to shut off services in your [...] health care facility (including now)? No 11/07/2023 [facility] IP Transportation Answer D [...] Marion CCMA documented in this encounter Discharge Disposition Disposition Code Departure Means Destination Home or Self Care documented in this encounter Progress Notes * Krissy Rhodes, SIGNAL TOWER DIRECTOR - 03/10/2025 1:30 PM EDT [facility] Neurology Neurology Outpatient Progress Note [facility] 03/09/2025 PATIENT NAME: Meri Cole : 1965 CHIEF COMPLAINT: Chronic Refractory Headaches (346.91, 327.23) LAST INJECTION: 12/08/2024 PROCEDURE VISIT # 19 PRIMARY NEUROLOGIST: JOHANN Ledesma Current migraine treatment: Botox (started 11/11/2019- restarted 03/17/2024) Qulipta 60 mg daily (started 09/2024) Tizanidine PRN Compazine Toradol (CB) Past/Failed headache therapy: Ubrelvy Nurtec - ineffective Toradol PO- works prn Ajovy Topamax Ultram Imitrex - tongue swelling PROCEDURE: Botulinum Toxin - Botox A. (200 units) Dilution 1:1 (with NS) Risks and benefits of the procedure were explained to the patient. Written and verbal consent obtained today and witnessed by SB . Monthly migraine frequency: - Repeat injections [...] Given neck and traps Botox provided by: sample Botox Lot number: [id number] EXP 06/2026 [facility] # [id number] Saline Lot number: [id number] EXP 06/2026 IMPRESSION: Repeat botox injection. Will return every 3 months for repeat injections. PLAN: -- RTC as needed for repeat injection if successful. -- Contact sooner if any adverse effects. Prior to the procedure, the patient???s name and were confirmed and reconciled with the goal for the study. A pre-procedural pause was performed to confirm the side and specific location of the procedure. documented in this encounter Miscellaneous Notes * Addendum Note - Nazanin Yeh MA - 03/10/2025 1:30 PM EDTAddended by: NAZANIN YEH on: 03/10/2025 01:59 PM Modules accepted: Orders documented in this encounter Plan of Treatment Upcoming Encounters Date Type Department Care Team (Late st Contact Info) Description 03/18/2025 7:30 AM EDT Appointment [facility] [address] [place], [place] [id number] Adryan Rowan MD [address] [facility] [address] [place] [id number] 04/29/2025 9:15 AM EDT Appointment [facility] [place], [place] [id number] Batool Celis MD [address] [place] [address] [place] [address] 05/19/2025 2:15 PM EST Office Visit [facility] [address] [place] [address] [address] [facility] [address] [place] [address] Sin Tran MD [address] [place] [address] 06/09/2025 12:45 PM EST Procedure visit [facility] [address] [facility] [address] [place], [place] [id number] Samm Ledesma, SIGNAL TOWER DIRECTOR [address] [place], [place] [id number] 08/12/2025 10:40 AM EST Appointment [facility] [place] [address] Matt Ulrich MD [address] [place] [address] [address] [place] [address] documented as of this encounter [...] Navigator with any future questions or concerns. [facility] Breast Health Not on track(2024 11:27 AM EDT) No Jasmin Porter RN Note: Patient will be compliant with monthly SBE and is aware of who to contact for any unusual or concerning findings. Breast [facility] Breast Health On track(2024 11:27 [...] 155 Units, Intramuscular, ONCE, 1 dose, On Sat03/10/25 at 1400, Dx: 1. Chronic migraine without aura, intractable, with status migrainosusIndications:Chronic migraine without aura, intractable, with status migrainosus Given 03/10/2025 1:58 PM EDT 155 Units Other documented in this encounter Orders Medications Ordered That Obed ht Not Have Been Administered Count Last Ordered Date First Ordered Date botulinum toxin type A (BOTO X) injection 155 Units 1 03/10/2025 documented in this encounter Additional Health Concerns Assessment Noted Time PHQ-9 Depression Total Score: 17 024 8:39 AM EST PHQ-2 Depression Total Score: 5 07/07/20 24 8:39 AM EST documented as of this encounter Care Teams Poultry Killer Relationship Specialty Start Date End Date Ayush Marrero MD [address] [place] [address] PCP - General Family Medicine 03/09/25 Arlyn Schmidt MD [facility] [place] [address] Consulting Physician Internal Medicine-Endocrinology, Diabetes & Metabolism 11/28/20 Tacho Echavarria MD 1 [place] [address] Internal Medicine-Medical Oncology 11/12/23 Matt Ulrich MD 1 [place] [address] Surgery-Surgical Oncology 12/04/23 Eze Brock Pastoral Care 12/13/23 Annette Walker, TAX COMPLIANCE AGENT Outdoor Pursuits Instructor 05/13/24 Batool Celis MD 1 [facility] [place] [address] Radiation Oncologist Radiology-Radiation Oncology 06/08/24 documented as of this encounter
[2025-03-15 16:02] LABS: Chloride 109 mmol/L (98-107); Potassium 3.7 mmoL/L (3.5-5.1); Sodium 141 mmol/L (136-145)
[2025-03-15 16:05] LABS: Anion Gap 9.7 mEq/L (5-15); Blood Urea Nitrogen 11 mg/dl (7-17); Calcium 8.8 mg/dl (8.4-10.2); Carbon Dioxide 26 mmol/L (22.0-30.0); Creatinine,Serum 0.80 mg/dl (0.52-1.04); Estimated Glomerular Filt Rate 74 ml/min (>60); GFR (African American) 89 ML/MIN (>60); Glucose 95 mg/dl (74-100)
--- OUTSIDE RECORDS SUMMARY | 2025-03-16 09:45 | XMS_ITS | Encounter Summary ---
Author Organization [place] [address] Care Team Providers Care French Drawer Name Role Phone Chetna Cedeno MD Primary Care Provider [phone] Arlyn Schmidt MD Unavailable [phone] Tacho Echavarria MD Unavailable [phone] Matt Ulrich MD Unavailable [phone] Eze Brock Unavailable Cheryl Nair RN Unavailable [phone] Annette Walker TRACER POWDER BLENDER Unavailable [phone] Batool Celis MD Unavailable [phone] Ayush Marrero MD Primary Care Provider [phone] Encounter Details Date Type Department Care Team (Late st Contact Info) Description 09/11/2024 Lab Requisition [facility] [place] [address] Beata Kebede MD [address] [place] [address] Social History Tobacco Use Types Packs/Day Years [...] doctor or pharmacy? Never 11/07/2023 [facility] Utilities Answer Date Recorded In [...] in a residential (including now)? No 11/07/2023 [facility] IP Transportation Answer [...] Info) Description 03/18/2025 7:30 AM EDT Appointment [facility] [place] [address] Adryan Rowan MD [address] [facility] [facility] [address] [place] [phone] 04/29/2025 9:15 AM EDT Appointment [facility] ON[facility] [place], [place] [phone] Batool Celis MD [address] [place] [address] [place] [address] 05/19/2025 2:15 PM EST Office Visit [facility] [address] [facility] [address] [place] [address] Sin Tran MD [address] [place] [address] 06/09/2025 12:45 PM EST Procedure visit [facility] [address] [place] [address] Samm Ledesma APRN [address] [facility] [address] [place], [place] [phone] 08/12/2025 10:40 AM EST Appointment [facility] Wellness [facility] [place] [address] Matt Ulrich MD [address] [place] [address] DR VIGIL Zari [place] [address] documented as of this encounter Goals Goal [...] EST) CASE REPORT Surgical Pathology Report Case: [id number] Authorizing Provider: Beata Kebede MD Collected: 09/11/2024 1313 Ordering Location: [facility] Received: 09/11/2024 1313 Pathologist: Diane Ellis MD Specimen: Breast, Request for cases [id number], [id number] slides to [facility]. 09/15/2024 12:14 PM EDT [facility] FINAL DIAGNOSIS Results will be scanned in this case as an addendum. 09/15/2024 12:14 PM EDT [facility] at 1338 EST EMBEDDED IMAGES 09/15/2024 12:14 PM EDT [facility] ADDENDUM Refer to Scanned [facility] Report for [id number] & [id number]. 09/15/2024 12:14 PM EDT [facility] Addendum electronically signed by Diane Ellis MD on 09/15/2024 at 1214 EDT Tissue BREAST STRUCTURE / Unknown 09/11/2024 1:13 PM EST 09/11/2024 1:13 PM EST us Beata Kebede MD PATHOLOGY ORDERABLES Edited R esult - Final [facility] [address] [place] [id number] documented in this encounter Visit Diagnoses Not on filedocumented in this encounter Additional Health Concerns Infection Onset Date Last Indicated Resolved Time COVID-19 09/04/2024 09/04/2024 09/24/2024 10:1 2 PM EDT Assessment Noted Time PHQ-9 Depression Total Score: 17 024 8:39 AM EST PHQ-2 Depression Total Score: 5 07/07/20 24 8:39 AM EST documented as of this encounter Care Teams French Drawer Relationship Specialty [place] [address] [place] [address] PCP - General 06/21/10 03/08/25 Ayush Marrero MD [address] [place] [address] PCP - General Family Medicine 03/09/25 Arlyn Schmidt MD [address] [place] [address] Consulting Physician Internal Medicine-Endocrinology , Diabetes & Metabolism 11/28/20 Tacho Echavarria MD [address] [place] [id number] Internal Medicine-Medical Oncology 11/12/23 Matt Ulrich MD 1 [place] [address] Surgery-Surgical Oncology 12/04/23 Eze Brock Pastoral Care 12/13/23 Cheryl Nair, RN Oncology Nurse Navigator 03/25/2412/13 Annette Walker, ARACELI Instruction Dean 05/13/24 Batool Celis MD 1 [facility] [place] [phone] Radiation Oncologist Radiology-Radiation Oncology 06/08/24 documented as of this encounter
--- OUTSIDE RECORDS SUMMARY | 2025-03-16 09:46 | XMS_ITS | Encounter Summary ---
Author [place] [address] Care Team Providers Care Manager Staffing Name Role Phone Arlyn Schmidt MD Unavailable [phone] Tacho Echavarria MD Unavailable [phone] Matt Ulrich MD Unavailable [phone] Eze Brock Unavailable Annette Walker HAND SURGEON Unavailable [phone] Batool Celis MD Unavailable [phone] Ayush Marrero MD Primary Care Provider [phone] Encounter Details Date Type Department Care Team (Late st Contact Info) Description 03/09/2025 Telephone [facility] Medical Oncology [place], [place] [phone] Tacho Echavarria MD [address] [place] [address] [phone] Social History Tobacco Use Types Packs/Day Years [...] [facility] [place] of Occupat ional Health - Occupational Stress [...] health care facility (including now)? No 11/[facility] IP [...] Info) Description 03/18/2025 7:30 AM EDT Appointment [facility] [place] [address] Adryan Rowan MD [address] [place] [address] [address] [place] [address] 04/29/2025 9:15 AM EDT Appointment [facility] [place], [place] [phone] Batool Celis MD [address] [facility] [place] [address] 05/19/2025 2:15 PM EST Office Visit [facility] [address] [place] [address] Sin Tran MD [address] [place] [address] 06/09/2025 12:45 PM EST Procedure visit [facility] [address] [place], [place] [phone] Samm Ledesma, CHIEF INNOVATION OFFICER [address] [facility] [address] [place] [address] 08/12/2025 10:40 AM EST Appointment [facility] [place] [facility] [place] [address] Matt Ulrich MD [address] [place] [address] 254 [place] [address] documented as of this encounter Goals Goal [...] for any unusual or concerning findings. Breast [facility] Breast Health On track(2024 [...] as of this encounter Care Teams Manager Staffing Relationship Specialty Start Date End Date Ayush Marrero MD [address] [place], [place] [phone] PCP - General Family Medicine 03/09/25 Arlyn Schmidt MD [address] [place] [address] Consulting Physician Internal Medicine-Endocrinology, Diabetes & Metabolism 11/28/20 Tacho Echavarria MD 1 [place] [address] Internal Medicine-Medical Oncology 11/12/23 Matt Ulrich MD 1 [place] [address] Surgery-Surgical Oncology 12/04/23 Eze Brock Pastoral Care 12/13/23 Annette Walker, ARACELI Product Manager Financial Services 05/13/24 Batool Celis MD 1 [place] [address] Radiation Oncologist Radiology-Radiation Oncology 06/08/24 documented as of this encounter
--- OUTSIDE RECORDS SUMMARY | 2025-03-16 09:46 | XMS_ITS | Encounter Summary ---
Author Organization [place] [address] Care Team Providers Care Business Account Executive Name Role Phone Chetna Cedeno MD Primary Care Provider [phone] Arlyn Schmidt MD Unavailable [phone] Tacho Echavarria MD Unavailable [phone] Matt Ulrich MD Unavailable [phone] Eze Brock Unavailable Annette Walker Unavailable [phone] Batool Celis MD Unavailable [phone] Reason for Visit * Reason Onset Date Comments Medication Refill 02/08/2025 Encounter Details Date Type Department Care Team (Late st Contact Info) Description 02/08/2025 Refill [facility] Medical Oncology [place], [place] [phone] Tacho Echavarria MD [address] [place] [address] [phone] Medication Refill Social History Tobacco Use Types [...] in a penitentiary (including now)? No 11/07/2023 [facility] IP Transportation Answer [...] Info) Description 03/18/2025 7:30 AM EDT Appointment [facility] [place] [address] Adryan Rowan MD [address] [place] [address] [address] [place] [address] 04/29/2025 9:15 AM EDT Appointment [facility] [place] [place] [address] Batool Celis MD [address] [place] [address] DR [facility] [place], [place] [phone] 05/19/2025 2:15 PM EST Office Visit [facility] [address] [facility] [address] [place] [address] Sin Tran MD [address] [place] [address] 06/09/2025 12:45 PM EST Procedure visit [facility] [address] [place] [address] Samm Ledesma APRN [address] [facility] [address] [place] [address] 08/12/2025 10:40 AM EST Appointment [facility] Women's Wellness [facility] [place] [address] Matt Ulrich MD [address] [place] [address] [address] [place] [phone] documented as of this encounter Goals Goal [...] as of this encounter Care Teams Business Account Executive Relationship Specialty [place] [address] [place] [address] PCP - General 06/21/10 03/08/25 Arlyn Schmidt MD [address] [place] [address] Consulting Physician Internal Medicine-Endocrinology, Diabetes & Metabolism 11/28/20 Tacho Echavarria MD 1 [place] [address] Internal Medicine-Medical Oncology 11/12/23 Matt Ulrich MD 1 [place] [address] Surgery-Surgical Oncology 12/04/23 Eze Brock Pastoral Care 12/13/23 Annette Walker, ARACELI Event Mgr 05/13/24 Batool Celis MD [address] [place] [address] [place] [address] Radiation Oncologist Radiology-Radiation Oncology 06/08/24 documented as of this encounter
--- OUTSIDE RECORDS SUMMARY | 2025-03-16 09:46 | XMS_ITS | Encounter Summary ---
Author Organization [place] [address] Care Team Providers Care Business Analyst Consultant Name Role Phone Chetna Cedeno MD Primary Care Provider [phone] Arlyn Schmidt MD Unavailable [phone] Tacho Echavarria MD Unavailable [phone] Matt Ulrich MD Unavailable [phone] Eze Brock Unavailable Annette Walker Unavailable [phone] Batool Celis MD Unavailable [phone] Reason for Visit * Reason Comments Medication Refill Encounter Details Date Type Department Care Team (Late st Contact Info) Description 01/15/2025 Refill [facility] Medical Oncology [place], [place] [phone] Tacho Echavarria MD [address] [place] [phone] Medication Refill Social History Tobacco Use Types [...] in a penitentiary (including now)? No 11/07/2023 [facility] IP Transportation Answer D [...] Info) Description 03/18/2025 7:30 AM EDT Appointment [facility] [place] [address] Adryan Rowan MD [address] [facility] [address] [place] [address] 04/29/2025 9:15 AM EDT Appointment [facility] [place], [place] [phone] Batool Celis MD 1 [facility] [place] [address] 05/19/2025 2:15 PM EST Office Visit [facility] [address] [place] [address] [address] [place] [address] [place] [address] [place] [address] 06/09/2025 12:45 PM EST Procedure visit [facility] [address] [facility] [address] [place] [phone] Samm Ledesma, GAS MANAGER [address] [facility] [address] [place] [address] 08/12/2025 10:40 AM EST Appointment [facility] Women's [facility]ness [facility] [place] [phone] Matt Ulrich MD [address] [place] [address] [address] [place] [address] documented as of this encounter Goals Goal [...] future questions or concerns. Breast [facility] Breast Health Not on track(2024 11:27 [...] as of this encounter Care Teams Business Analyst Consultant Relationship Specialty [place] [address] [place] [address] PCP - General 06/21/10 03/08/25 Arlyn Schmidt MD [address] [place], [place] 30[address] Consulting Physician Internal Medicine-Endocrinology, Diabetes & Metabolism 11/28/20 Tacho Echavarria MD 1 [place], [place] [phone] Internal Medicine-Medical Oncology 11/12/23 Matt Ulrich MD 1 [place], [place] [address]17 Surgery-Surgical Oncology 12/04/23 Eze Brock Pastoral Care 12/13/23 Annette Walker, [employer] HEAD INSPECTOR Boot And Saddle Repair Person 05/13/24 Batool Celis MD 1 [facility] [place] [address] Radiation Oncologist Radiology-Radiation Oncology 06/08/24 documented as of this encounter
--- OUTSIDE RECORDS SUMMARY | 2025-03-16 09:46 | XMS_ITS | Encounter Summary ---
Author Organization [place] [address] Care Team Providers Care Youth Development Specialist Name Role Phone Chetna Cedeno MD Primary Care Provider [phone] Arlyn Schmidt MD Unavailable [phone] Tacho Echavarria MD Unavailable [phone] Matt Ulrich MD Unavailable [phone] Eze Brock Unavailable Annette Walker Unavailable [phone] Batool Celis MD Unavailable [phone] Reason for Visit * Reason Comments Oncology Nurse Navigation Encounter Details Date Type Department Care Team (Late st Contact Info) Description 02/10/2025 Patient Outreach [facility] TUMOR [address] [place], [place] [phone] Tacho Echavarria MD [address] [place] [phone] Oncology Nurse Navigation Social History Tobacco Use [...] doctor or pharmacy? Never 11/07/2023 [facility] Utilities Answer Date Recorded In the [...] a long term (including now)? No 11/07/[address] [facility] IP Transportation Answer [...] NN asking for a copy (printed for continuous pickling line pickler helper) of the letter that Dr. Echavarria wrote regarding the air conditioner and asked for an update on getting a letter to help with her student loanforgiveness. She is in the area today and is asking if she can come and continuous pickling line pickler helper these letters Theletter about the air conditioner looks like it need editing. NN will send message to clinic. Also dora thompson voicemail for Dr. Echavarria's nurse. Onc NN will continue to follow patient. documented in this encounter Plan of Treatment Upcoming Encounters Date Type Department Care Team (Late st Contact Info) Description 03/18/2025 7:30 AM EDT Appointment [facility] [place] [address] Adryan Rowan MD [address] [facility] [address] [place] [address] 04/29/2025 9:15 AM EDT Appointment [facility] [place] [address] Batool Celis MD [address] [place] [address] [place] [address] 05/19/2025 2:15 PM EST Office Visit [facility] [address] [place] [address] [address] [place] [address] Sin Tran MD [address] [place] [address] 06/09/2025 12:45 PM EST Procedure visit [facility] [address] [facility] [address] [place] [address] Samm Ledesma, CENTRAL SUPPLY WORKER [address] [facility] [address] [place] [address] 08/12/2025 10:40 AM EST Appointment [facility] Women's Wellness [facility] [place] [address] Matt Ulrich MD [address] [place] [address] [address] [place], [place] [phone] documented as of this encounter Goals Goal [...] documented as of this encounter Care Teams Youth Development Specialist Relationship Specialty [place] [address] [address] [facility] [address] PCP - General 06/21/10 03/08/25 Arlyn Schmidt MD [address] [place] [address] Consulting Physician Internal Medicine-Endocrinology, Diabetes & Metabolism 11/28/20 Tacho Echavarria MD [address] [place] [phone] Internal Medicine-Medical Oncology 11/12/23 Matt Ulrich MD 1 [place] [phone] Surgery-Surgical Oncology 12/04/23 Eze Brock Pastoral Care 12/13/23 Annette Walker, MIXED SIGNAL DESIGN ENGINEER Schedule Maker 05/13/24 Batool Celis MD 1 [facility] [place] [address] Radiation Oncologist Radiology-Radiation Oncology 06/08/24 documented as of this encounter
--- OUTSIDE RECORDS SUMMARY | 2025-03-16 09:46 | XMS_ITS | Encounter Summary ---
Author Organization [place] [address] Care Team Providers Care Pocket Grinder Operator Name Role Phone Chetna Cedeno MD Primary Care Provider [phone] Arlyn Schmidt MD Unavailable [phone] Tacho Echavarria MD Unavailable [phone] Matt Ulrich MD Unavailable [phone] Eze Brock Unavailable Annette Walker Unavailable [phone] Batool Celis MD Unavailable [phone] Encounter Details Date Type Department Care Team (Late st Contact Info) Description 01/15/[address] [facility] Physical Therapy [address] [place] [address] Social History Tobacco Use Types [...] health care facility (including now)? No 11/07/2023 [facility] IP Transportation Answer D [...] Info) Description 03/18/2025 7:30 AM EDT Appointment [facility] CT [place], [place] [phone] Adryan Rowan MD [address] [facility] [facility] [facility] [address] [place] [address] 04/29/2025 9:15 AM EDT Appointment [facility] ON[facility] [place], [place] [phone] Batool Celis MD [address] [place] [address] [place] [address] 05/19/2025 2:15 PM EST Office Visit [facility] [address] [facility] [address] [place] [address] Sin Tran MD [address] [place] [address] 06/09/2025 12:45 PM EST Procedure visit [facility] [address] [facility] [address] [place], [place] [phone] Samm Ledesma, FISH LIVER SORTER [address] [facility] [address] [place] [address] 08/12/2025 10:[address] [facility] Women's Wellness [facility] [place] [address] Matt Ulrich MD [address] [place] [address] [address] [place] [address] documented as of this encounter Goals Goal Patient Goal Type Associated Problems Recent Progress Patient-Stated? Author Blood Pressure < 140/90 Blood Pressure 121/77(02/04 2:04 PM EDT) No Chetna Cedeno MD Breast [facility] Breast Health On track(2024 11:27 AM [...] documented as of this encounter Care Teams Pocket Grinder Operator Relationship Specialty [place] [address] [place] [address] PCP - General 06/21/10 03/08/25 Arlyn Schmidt MD [address] [place] [address] Consulting Physician Internal Medicine-Endocrinology, Diabetes & Metabolism 11/28/20 Tacho Echavarria MD [address] [place] [address] Internal Medicine-Medical Oncology 11/12/23 Matt Ulrich MD [address] [place] [address] Surgery-Surgical Oncology 12/04/23 Eze Brock Pastoral Care 12/13/23 Annette Walker, ARACELI Guest Services Manager 05/13/24 Batool Celis MD 1 [facility] [place] [address] Radiation Oncologist Radiology-Radiation Oncology 06/08/24 documented as of this encounter
--- OUTSIDE RECORDS SUMMARY | 2025-03-16 09:46 | XMS_ITS | Encounter Summary ---
Author Organization [place] [address] Care Team Providers Care Aviation Technical Systems Specialist Name Role Phone Chetna Cedeno MD Primary Care Provider [phone] Arlyn Schmidt MD Unavailable [phone] Tacho Echavarria MD Unavailable [phone] Matt Ulrich MD Unavailable [phone] Eze Brock Unavailable Annette Walker Unavailable [phone] Batool Ceils MD Unavailable [phone] Ayush Marrero MD Primary Care Provider [phone] Reason for Referral * In Office Procedure (Routine) - PCP Precert Acquired Specialty Diagnoses / Procedures Referred By Van t Referred To Contact Neurology Diagnoses Chronic migraine without aura, intractable, with status migrainosus Procedures BOTOX COMMUNICATION ORDER OR INJECTION,ONABOTULINUMTOXINA OR CHEMODERVATE FACIAL/TRIGEM/CERV MUSC MIGRAINE Samm Ledesma, MACHINE PAN GREASER [address] [place] [address] Phone: tel: fax: Samm Ledesma, MACHINE PAN GREASER [address] [place] [address] Phone: tel: fax: Referral ID Status Reason Start Date Expiration Date V isits Requested Visits Authorized [id number] PCP Precert Acquired 03/10/2025 03/10/2026 1 4 Reason for Visit * Reason Onset Date Comments Botox Injection 01/01/2025 ~03/02/2025 Encounter Details Date Type Department Care Team (Late st Contact Info) Description 01/01/2025 Patient Outreach [facility] [address] [place] [address] Samm Ledesma APRN [address] [place] [address] Botox Injection (~03/02/2025 ) Social [...] has e electric, gas, oil, or water [employer] threatened to shut off services in your [...] Recorded PHQ-2 Total Score 5 07/07/2024 [facility] of Occupat ional [facility] - Occupational Stress Questionnaire [...] a usp (including now)? No 11/07/2023 [facility] [...] [employer] documented as insurance. No longer has [place]. Needs new PA. Will supply sample for appt tomorrow. * Telephone Encounter - Maria Elena Harvey - 01/12/2025 1:09 PM EDT Pt suzy'ed Botox for 03/02/25 * Telephone Encounter - Brittany Narvaez MA - 01/01/2025 11:30 AM EDT ~03/02/2025 ANNIE APPROVED: [id number] AUTH #: ASO ASBM Preferred [id number] DATES OF APPROVAL: 08/12/2024-08/11/2025 UNITS APPROVED: 620 units/ 4 visits documented in this encounter Plan of Treatment Upcoming Encounters Date Type Department Care Team (Late st Contact Info) Description 03/18/2025 7:30 AM EDT Appointment [facility] [place] [address] Adryan Rowan MD [address] [place] [address] [address] [place] [id number] 04/29/2025 9:15 AM EDT Appointment [facility] [place] [address] Batool Celis MD [address] [place] [address] [place] [address] 05/19/2025 2:15 PM EST Office Visit [address] [address] Sin Tran MD [facility] [place] [address] 06/09/2025 12:45 PM EST Procedure visit [facility] [address] [place] [address] Baltazar Samm Dillon, MACHINE PAN GREASER [address] [facility] [facility] [address] [address] [place] [address] 08/12/2025 10:40 AM EST Appointment [facility] Women's Wellness [place] [facility] [place] [address] Matt Ulrich MD [address] [place] [address] [address] [place] [address] documented as of this encounter Goals Goal Patient Goal Type Associated Problems Recent Progress Patient-Stated? Author Blood Pressure < 140/90 Blood Pressure 121/77(02/04 2:04 PM EDT) No Chetna Cedeno MD Breast [facility] Breast Health On track(2024 [...] as of this encounter Care Teams Aviation Technical Systems Specialist Relationship Specialty [place] [address] [place] [address] PCP - General 06/21/10 03/08/25 Ayush Marrero MD [address] [place] [address] PCP - General Family Medicine 03/09/25 Arlyn Schmidt MD [facility] [place] [address] Consulting Physician Internal Medicine-Endocrinology, Diabetes & Metabolism 11/28/20 Tacho Echavarria MD [address] [place] [address] Internal Medicine-Medical Oncology 11/12/23 Matt Ulrich MD 1 [place] [address] Surgery-Surgical Oncology 12/04/23 Eze Brock Pastoral Care 12/13/23 Annette Walker MSW Anode Worker 05/13/24 Batool Celis MD [address] [place] [address] [place] [address] Radiation Oncologist Radiology-Radiation Oncology 06/08/24 documented as of this encounter
--- OUTSIDE RECORDS SUMMARY | 2025-03-16 09:46 | XMS_ITS | Encounter Summary ---
Author Organization [place] [address] Care Team Providers Care Environmental Epidemiologist Name Role Phone Chetna Cedeno MD Primary Care Provider [phone] Arlyn Schmidt MD Unavailable [phone] Tacoh Echavarria MD Unavailable [phone] Matt Ulrich MD Unavailable [phone] Eze Brock Unavailable Annette Walker Unavailable [phone] Batool Celis MD Unavailable [phone] Encounter Details Date Type Department Care Team (Late st Contact Info) Description 12/25/2024 Telephone [facility] [place] [address] Jasmin Porter RN Social History [...] 07/07/2024 [facility] of Occupat ional [facility] - Occupational Stress Questionnaire Answer Date [...] any time in the past 12 m [facility], were you homeless or living in a alf (including now)? No 11/07/2023 [facility] IP Transportation Answer D ate [...] Info) Description 03/18/2025 7:30 AM EDT Appointment [facility] [place], [place] [id number] Adryan Rowan MD [address] [facility] [address] [address] [place] [address] 04/29/2025 9:15 AM EDT Appointment [facility] [place] [address] Batool Celis MD [address] [place] [address] [place] [address] 05/19/2025 2:15 PM EST Office Visit [facility] [address] [place] [address] [address] [place] [address] [place] [address] [place] [address] 06/09/2025 12:45 PM EST Procedure visit [facility] [address] [facility] [address] [place], [place] [address] Samm Ledesma, SHEEP STICKER [address] [place], [place] [address] 08/12/2025 10:40 AM EST Appointment [facility] Women's Wellness [facility] [place] [address] Matt Ulrich MD [address] [place] [address] [address] [place] [address] documented as of this encounter Goals Goal Patient Goal Type Associated Problems Recent Progress Patient-Stated? Author Blood Pressure < 140/90 Blood Pressure 121/77(02/04 2:04 PM EDT) No Chetna Cedeno MD Breast [facility] Breast Health On track(2024 11:27 AM EDT) No Jasmin Porter, RN Note: Patient acknowledges understanding of new diagnosis, plan of care, available resources and how to contact Nurse Navigator with any future questions or concerns. Breast [facility] Breast Health Not on track(2024 11:27 [...] as of this encounter Care Teams Environmental Epidemiologist Relationship Specialty [place] [address] [place] [address] PCP - General 06/21/10 03/08/25 Arlyn Schmidt MD [address] [place] [address] Consulting Physician Internal Medicine-Endocrinology, Diabetes & Metabolism 11/28/20 Tacho Echavarria MD 1 [place] [id number] Internal Medicine-Medical Oncology 11/12/23 Matt Ulrich MD 1 [place], [place] [address] Surgery-Surgical Oncology 12/04/23 Eze Brock Pastoral Care 12/13/23 Annette Walker, VARNISH COOKER Framing Mill Operator 05/13/24 Batool Celis MD 1 [facility] [place] [address] Radiation Oncologist Radiology-Radiation Oncology 06/08/24 documented as of this encounter
--- OUTSIDE RECORDS SUMMARY | 2025-03-16 09:46 | XMS_ITS | Encounter Summary ---
Author Organization [place] [address] Care Team Providers Care Tube Depatcher Name Role Phone Chetna Cedeno MD Primary Care Provider [phone] Arlyn Schmidt MD Unavailable [phone] Tacho Echavarria MD Unavailable [phone] Matt Ulrich MD Unavailable [phone] Eze Brock Unavailable Annette Walker Unavailable [phone] Batool Celis MD Unavailable [phone] Encounter Details Date Type Department Care Team (Late st Contact Info) Description 02/10/2025 Orders Only [facility] [place] [address] Shilpa Cline, RN Social History [...] Recorded In the past 12 months has [employer], oil, or water [employer] threatened to shut off services in your [...] [facility] of Occupat ional [facility] - Occupational Stress Questionnaire Answer Date [...] 11/07/2023 [facility] IP Transportation Answer D [...] Info) Description 03/18/2025 7:30 AM EDT Appointment [facility] CT [place], [place] [phone] Adryan Rowan MD [address] [place] [address] 04/29/2025 9:15 AM EDT Appointment [facility] ONC [place], [place] [address] Batool Celis MD [address] [place] [address] [facility] [place] [id number] 05/19/2025 2:15 PM EST Office Visit [facility] [address] [facility] [address] [place] [address] Sin Tran MD [address] [place] [address] 06/09/2025 12:45 PM EST Procedure visit [facility] [address] [facility] [address] [place], [place] [address] Samm Ledesma, WATER VALVE REPAIRER [address] [place], [place] [address] 08/12/2025 10:40 AM EST Appointment [facility] Women's Wellness [facility] [place] [address] Matt Ulrich MD [address] [place] [address] [address] [place] [address] documented as of this encounter [...] as of this encounter Care Teams Tube Depatcher Relationship Specialty [place] [address] [place] [address] PCP - General 06/21/10 03/08/25 Arlyn Schmidt MD [address] [place] [address] Consulting Physician Internal Medicine-Endocrinology, Diabetes & Metabolism 11/28/20 Tacho Echavarria MD 1 [place] [address] Internal Medicine-Medical Oncology 11/12/23 Matt Ulrich MD 1 [place] [address] Surgery-Surgical Oncology 12/04/23 Eze Brock Pastoral Care 12/13/23 Annette Walker, PHARMACY BUYER Kettle Girl 05/13/24 Batool Celis MD 1 [facility] [place] [address] Radiation Oncologist Radiology-Radiation Oncology 06/08/24 documented as of this encounter
--- OUTSIDE RECORDS SUMMARY | 2025-03-16 09:46 | XMS_ITS ---
Author Organization Emilee VELIZJude OD Address [address] [facility] [address] [place], [place] [address] Phone Care Team Providers Care Web Sizer Name Role Phone Arlyn Schmidt MD Unavailable [phone] Tacho Echavarria MD Unavailable [phone] Matt Ulrich MD Unavailable [phone] Eze Brock Unavailable Annette Walker Unavailable [phone] Batool Celis MD Unavailable [phone] Ayush Marrero MD Primary Care Provider [phone] Active Problems * This document contains information received from the source organization and may not represent a complete record from that organization. Patient Care Coordination No te Formatting of this note migh t be different from the original. [facility] - Sin Tran MD Controlled [...] Functional capacity documented (EVERY VISIT)01/03/2022 [facility] [address] [place] [phone] [facility] [phone] AIS POA: 02/10/2025 josh as expected #[id number] Josh 08-05-2018 adm Josh 08-14-18 adm UDS 08-08-18 adm Care gap audit completed by Medina White RN on 01/01/2022. 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 Care Team Medical Oncologist Dr. Tacho Echaavrria Surgeon Dr. Matt Ulrich Radiation Oncologist Dr. Batool Celis Primary Care Physician Chetna Cedeno MD Cancer Diagnosis Information Diagnosis date 10/29/23 Diagnosis and Staging information Invasive Ductal Carcinoma, right breast Clinical Stage IIIB (cT3, cN3a(f), M0, G3, ER+, [place]+, Her2-) Pathologic Stage y(pT3, pN3a, G3 ER+, [place]+, Her2-) Tumor markers Breast: Estrogen Receptor positive (92%) Progesterone Receptor positive (55%) Her-2 negative Background Information/Additional Screening Recommendations Genetics testing Negative (IPICO Hereditary Cancer 67-gene panel) Tobacco use Nonsmoker. [...] up to GI tolerance for2 yr planned ([place]-E regimen) Radiation therapy External beam radiotherapy to a total dose of 60 Gy; 50 Gy to right chest wall and regional lymph nodes including internal mammary + 10 Gy boost to the undissected nodes. Delivered in a total of 30 fractions Endocrine Therapy Arimidex started 10/08/24 + Verzenio. Changed to Aromasin give [facility] Oncology Timeline Oncology History Invasive ductal carcinoma of breast, female, right (HCC) 10/29/2023 Initial Diagnosis Invasive ductal carcinoma of right breast, grade 3 A. Breast, right, 6:00, Invasive ductal carcinoma, grade 3 ER 80%, KY 11%, Her2 negative B. Breast, right, 5:00 Invasive ductal carcinoma grade 3 ER 92%, [place] 55%, Her2 negative 11/11/2023 - Consult Initial [...] to GI tolerance for 2 yr planned ([place]-E regimen) 10/2024 - changed to Aromasin d/t [...] Stage IIIB (cT3, cN3a(f), cM0, G3, ER+, [place]+, HER2-) Pathologic Stage ypT3, ypN3a, G3, ER+, KY+, HER2- Right breast cancer with T3 tumor, [...] General Health Continue follow-up with PCP and DEPARTMENT STORE MANAGER as directed Recommendations Self-care plan: What you [...] with your body,see your regular doctor, physician blood donor unit assistant, or nurse practitioner. If what you [...] excess. I doubt the patient has underlying [place]'s disease. We will proceed with the work-up [...]
--- OUTSIDE RECORDS SUMMARY | 2025-03-16 09:46 | XMS_ITS | Encounter Summary ---
Author Organization [place] [address] Care Team Providers Care Allergy Nurse Name Role Phone Chetna Cedeno MD Primary Care Provider [phone] Arlyn Schmidt MD Unavailable [phone] Tacho Echavarria MD Unavailable [phone] Matt Ulrich MD Unavailable [phone] Eze Brock Unavailable Annette Walker Unavailable [phone] Batool Celis MD Unavailable [phone] Reason for Visit * Reason Comments Medication Refill Encounter Details Date Type Department Care Team (Late st Contact Info) Description 01/14/2025 Refill [facility] Medical Oncology [place], [place] [phone] Tacho Echavarria MD [address] [place] [id number] Medication Refill Social History Tobacco Use Types [...] in a alf (including now)? No 11/07/2023 [facility] IP Transportation Answer D ate [...] Info) Description 03/18/2025 7:30 AM EDT Appointment [facility] [place] [address] Adryan Rowan MD [facility] [address] [place] [address] 04/29/2025 9:15 AM EDT Appointment [place] [address] Batool Celis MD [address] [place] [address] CANCER [place]ARE [place], [place] [address] 05/19/2025 2:15 PM EST [facility] [address] [facility] [address] [place] [address] Sin Tran MD [address] [place] [address] 06/09/2025 12:45 PM EST Procedure visit [facility] [address] [facility] [address] [place] [address] Samm Ledesma, BARGE ENGINEER [address] [address] [place] [address] 08/12/2025 10:40 AM EST Appointment [facility] Women's Wellness [facility] [place] [address] Matt Ulrich MD [address] [place] [address] [address] [place] [address] documented as of this encounter Goals Goal [...] documented as of this encounter Care Teams Allergy Nurse Relationship Specialty [place] [address] [place] [address] PCP - General 06/21/10 03/08/25 Arlyn Schmidt MD [address] [place] [address] Consulting Physician Internal Medicine-Endocrinology, Diabetes & Metabolism 11/28/20 Tacho Echavarria MD 1 [place] [address] Internal Medicine-Medical Oncology 11/12/23 Matt Ulrich MD 1 [place] [address] Surgery-Surgical Oncology 12/04/23 Eze Brock Pastoral Care 12/13/23 Annette Walker MSW Foil Spooler 05/13/24 Batool Celis MD [address] [facility] [place] [address] Radiation Oncologist Radiology-Radiation Oncology 06/08/24 documented as of this encounter
--- OUTSIDE RECORDS SUMMARY | 2025-03-16 09:46 | XMS_ITS | Encounter Summary ---
Author Organization [place] [address] Care Team Providers Care Thread Clipper Name Role Phone Chetna Cedeno MD Primary Care Provider [phone] Arlyn Schmidt MD Unavailable [phone] Tacho Echavarria MD Unavailable [phone] Matt Ulrich MD Unavailable [phone] Eze Brock Unavailable Annette Walker Unavailable [phone] Batool Celis MD Unavailable [phone] Ayush Marrero MD Primary Care Provider [phone] Reason for Visit * Reason Onset Date Comments Medication Refill 03/04/2025 Encounter Details Date Type Department Care Team (Late st Contact Info) Description 03/04/2025 Telephone [facility] [address] [place] [address] [place] [address] [place] [address] Medication Refill Social History Tobacco [...] Score 5 07/07/2024 [facility] - Occupational Stress Questionnaire Answer Date [...] in a fpc (including now)? No 11/07/2023 [facility] IP Transportation Answer D ate [...] Info) Description 03/18/2025 7:30 AM EDT Appointment [facility] [place] [address] Adryan Rowan MD [address] [place] [address] 04/29/2025 9:15 AM EDT Appointment [facility] [place] [address] Batool Celis MD [address] [place] [address] [place] [address] 05/19/2025 2:15 PM EST Office Visit [facility] [address] [facility] [address] [place] [address] Sin Tran MD [address] [place] [address] 06/09/2025 12:45 PM EST Procedure visit [facility] NE[facility] [address] [facility] [address] [place], [place] [address] Samm Ledesma, SMALL BUSINESS CONSULTANT [address] [facility] [address] [address] [place], [place] [address] 08/12/2025 10:40 AM EST Appointment [facility] Women's Wellness [facility] [place] [id number] Matt Ulrich MD [address] [place] [address] [address] [place] [address] documented as of this encounter Goals Goal [...] On track(2024 11:27 AM EDT) No Demi Graibay, RAUL Note: Patient will be compliant with [...] documented as of this encounter Care Teams Thread Clipper Relationship Specialty [place] [address] [place] [address] PCP - General 06/21/10 03/08/25 Ayush Marrero MD [address] [place] [address] PCP - General Family Medicine 03/09/25 Arlyn Schmidt MD [address] [place], [place] [address] Consulting Physician Internal Medicine-Endocrinology, Diabetes & Metabolism 11/28/20 Tacho Echavarria MD 1 [place], [place] [address] Internal Medicine-Medical Oncology 11/12/23 Matt Ulrich MD 1 [place], [place] [address] Surgery-Surgical Oncology 12/04/23 Eze Brock Pastoral Care 12/13/23 Annette Walker, FINE GRADER Production Team Member 05/13/24 Batool Celis MD 1 [facility] [address] Radiation Oncologist Radiology-Radiation Oncology 06/08/24 documented as of this encounter
--- OUTSIDE RECORDS SUMMARY | 2025-03-16 09:46 | XMS_ITS | Encounter Summary ---
Author Organization [place] [address] Care Team Providers Care Director Of Provider Relations Name Role Phone Chetna Cedeno MD Primary Care Provider [phone] Arlyn Schmidt MD Unavailable [phone] Tcaho Echavarria MD Unavailable [phone] Matt Ulrich MD Unavailable [phone] Eze Brock Unavailable Annette Walker Unavailable [phone] Batool Celis MD Unavailable [phone] Reason for Visit * Reason Onset Date Comments Symptom Call 01/15/2025 shakiness, light headed, cold chills, and breaking out in sweats Encounter Details Date Type Department Care Team (Late st Contact Info) Description 01/15/2025 Telephone [facility] Medical Oncology [place], [place] [phone] Tacho Echavarria MD [address] [place] [address] [id number] Symptom Call (shakiness, light headed, cold chills, [...] Date Recorded PHQ-2 Total Score 5 07/07/2024 [facility] [place] of Occupat ional Health - Occupational Stress [...] a senior living (including now)? No 11/07/2023 [facility] IP Transportation Answer [...] be seen. Patient scheduled for 1:30 with MASTER DATA ANALYST and 1:15 for labs. * Telephone Encounter [...] no What Location is the Patient seen at:[facility] Preferred call back number:[phone] Explained to the caller, if this is a medical emergency please call 911 or go to the nearest emergency room. documented in this encounter Plan of Treatment Upcoming Encounters Date Type Department Care Team (Late st Contact Info) Description 03/18/2025 7:30 AM EDT Appointment [facility] [place] [address] Adryan Rowan MD [address] [facility] [facility] [facility] [address] [place] [address] 04/29/2025 9:15 AM EDT Appointment [facility] [place], [place] [phone] Batool Celis MD [address] [place] [address] [facility] [address] 05/19/2025 2:15 PM EST Office Visit [address] [place] [address] [place] [address] [place] [address] 06/09/2025 12:45 PM EST Procedure visit [facility] [address] [facility] [address] [place], [place] [phone] Samm Ledesma, MASTER DATA ANALYST [address] [place], [place] [address] 08/12/2025 10:40 AM EST Appointment [facility] Women's Wellness [facility] [address] Matt Ulrich MD [address] [place] [address] [address] [place] [address] documented as of this encounter [...] any future questions or concerns. Breast [facility] Breast Health Not on track(2024 11:27 [...] - 145 mmol/L 01/15/2025 2:05 PM EDT [facility] Potassium 4.0 3.5 - 5.0 mmol/L 01/15/2025 2:05 PM EDT [facility] Chloride 107 98 - 107 mmol/L 01/15/2025 2:05 PM EDT [facility] Total CO2 25 22 - 29 mmol/L 01/15/2025 2:05 PM EDT [facility] Anion Gap 8 7 - 16 mmol/L 01/15/2025 2:05 PM EDT [facility] Calcium 9.3 8.6 - 10.4 mg/dL 01/15/2025 2:05 PM EDT [facility] Glucose Lvl 88 70 - 99 mg/dL 01/15/2025 2:05 PM EDT [facility] BUN 13 6 - 20 mg/dL 01/15/2025 2:05 PM EDT [facility] Creatinine 0.85 0.51 - 1.30 mg/dL 01/15/2025 2:05 PM EDT [facility] Albumin 4.0 3.5 - 5.2 gm/dL 01/15/2025 2:05 PM EDT [facility] Total Protein 6.7 6.4 - 8.3 gm/dL 01/15/2025 2:05 PM EDT [facility] Bili Total 0.3 0.2 - 1.3 mg/dL 01/15/2025 2:05 PM EDT [facility] ALT 8 <=41 U/L 01/15/2025 2:05 PM EDT [facility] AST 14 <=40 U/L 01/15/2025 2:05 PM EDT [facility] Alk Phos 124(H) 36 - 123 U/L 01/15/2025 2:05 PM EDT [facility] eGFR (CKD-EPIcr 2020) 79 >=60 mL/min/1.7 3 m2 01/15/2025 2:05 PM EDT [facility] Comment:Estimated GFR was ca lculated using the CKD-EPIcr (2020) equation refit without race. The equation is recommended by the National Kidney Foundation - [place] Society of Nephrology Task Force. Blood VENOUS BLOOD / Unknown Venipuncture / Unknown 01/15/2025 1:41 PM EDT 01/15/2025 1:44 PM EDT us Heydi Sorensen MASTER DATA ANALYST CHEMISTRY ORDERABLES Final Res ult [facility] [address] [place] [id number] * (ABNORMAL) CBC WITH DIFF (01/15/2025 1:41 PM EDT) WBC 4.5 3.7 - 10.3 x10(3)/mc L 01/15/2025 1:49 PM EDT [facility] RBC 3.40(L) 3.90 - 5.20 x10(6)/mc L 01/15/2025 1:49 PM EDT [facility] Hgb 10.3(L) 11.2 - 15.7 g/dL 01/15/2025 1:49 PM EDT [facility] Hct 31.7(L) 34.0 - 45.0 % 01/15/2025 1:49 PM EDT [facility] MCV 93.2 80.0 - 100.0 fL 01/15/2025 1:49 PM EDT [facility] MCH 30.3 26.0 - 34.0 pg 01/15/2025 1:49 PM EDT [facility] MCHC 32.5 30.7 - 35.5 g/dL 01/15/2025 1:49 PM EDT [facility] RDW 14.7 <=14.9 % 01/15/2025 1:49 PM EDT [facility] Platelet 165 155 - 369 x10(3)/mc L 01/15/2025 1:49 PM EDT [facility] MPV 8.4(L) 8.8 - 12.5 fL 01/15/2025 1:49 PM EDT [facility] Neut # Prelim 2.9 1.6 - 6.1 x10(3)/mc L 01/15/2025 1:49 PM EDT [facility] Comment:Preliminary automate d absolute neutrophil count. Value may change if manual differential is indicated. Neut Percent 64.2 % 01/15/2025 1:49 PM EDT [facility] Comment:Neutrophils equals s egs plus bands Imm Gran% 0.2 % 01/15/2025 1:49 PM EDT [facility] Comment:Automated count of m etamyelocytes, myelocytes and promyelocytes. Lymph Percent 28.3 % 01/15/2025 1:49 PM EDT [facility] Throckmorton Percent 5.3 % 01/15/2025 1:49 PM EDT [facility] Eos Percent 1.3 % 01/15/2025 1:49 PM EDT [facility] Baso Percent 0.7 % 01/15/2025 1:49 PM EDT [facility] Neut # 2.9 1.6 - 6.1 x10(3)/mc L 01/15/2025 1:49 PM EDT [facility] Comment:Neutrophils equals s egs plus bands IMMGRAN# 0.0 0.0 - 0.1 x10(3)/mc L 01/15/2025 1:49 PM EDT [facility] Comment:Automated count of m etamyelocytes, myelocytes and promyelocytes. An absolute IG <0.1 is reported as 0.0. Lymph # 1.3 1.2 - 3.9 x10(3)/mc L 01/15/2025 1:49 PM EDT [facility] Throckmorton # 0.2(L) 0.3 - 0.9 x10(3)/mc L 01/15/2025 1:49 PM EDT [facility] Eos# 0.1 0.0 - 0.5 x10(3)/mc L 01/15/2025 1:49 PM EDT [facility] Baso # 0.0 0.0 - 0.1 x10(3)/mc L 01/15/2025 1:49 PM EDT [facility] Blood VENOUS BLOOD / Unknown Venipuncture / Unknown 01/15/2025 1:41 PM EDT 01/15/2025 1:44 PM EDT us Heydi Sorensen MASTER DATA ANALYST HEMATOLOGY ORDERABLES Final Re sult [facility] [address] [place] [id number] documented in this encounter Visit Diagnoses Diagnosis [...] of this encounter Care Teams Director Of Provider Relations Relationship Specialty [place] [address] [place] [address] PCP - General 06/21/10 03/08/25 Arlyn Schmidt MD [address] [place] [address] Consulting Physician Internal Medicine-Endocrinology, Diabetes & Metabolism 11/28/20 Tacho Echavarria MD 1 [place] [address] Internal Medicine-Medical Oncology 11/12/23 Matt Ulrich MD 1 [place] [id number] Surgery-Surgical Oncology 12/04/23 Eze Brock Pastoral Care 12/13/23 Annette Walker, [facility] Cop Examiner 05/13/24 Batool Celis MD 1 [facility] [place] [address] Radiation Oncologist Radiology-Radiation Oncology 06/08/24 documented as of this encounter"
--- OUTSIDE RECORDS SUMMARY | 2025-03-16 09:46 | XMS_ITS | Encounter Summary ---
Author Organization [place] [address] Care Team Providers Care Controller Repairer And Tester Name Role Phone Chetna Cedeno MD Primary Care Provider [phone] Arlyn Schmidt MD Unavailable [phone] Tacho Echavarria MD Unavailable [phone] Matt Ulrich MD Unavailable [phone] Eze Brock Unavailable Annette Walker Unavailable [phone] Batool Celis MD Unavailable [phone] Reason for Visit * Reason Comments Pharmacy Migraine Medication Management Ubrelvy Encounter Details Date Type Department Care Team (Latest Contact Info) Description 01/15/2025 Specialty Pharmacy [facility] [address] [place] [address] Annamarie Mark CPhT Pharmacy Migraine [...] th e electric, gas, oil, or water emids threatened to shut off services in your [...] Total Score 5 07/07/2024 [facility] [place] of Occupat ional Health - Occupational Stress [...] in a retirement (including now)? No 11/07/2023 [facility] IP Transportation Answer D [...] AM EDT Specialty Pharmacy MyChart request El [place] Douglas requested a refill of Ubrelvy via [employer]. V[employer] message was sent in response with appropriate questionnaire. Will f/u in 2 business days. documented in this encounter Plan of Treatment Upcoming Encounters Date Type Department Care Team (Late st Contact Info) Description 03/18/2025 7:30 AM EDT Appointment [facility] [place] [address] Adryan Rowan MD [address] [facility] [address] [place] [address] 04/29/2025 9:15 AM EDT Appointment [place] [address] Batool Celis MD 1 [facility] [place], [place] [phone] 05/19/2025 2:15 PM EST Office Visit [facility] [address] [place] [address] [address] [place] [address] Sin Tran MD [address] [place] [address] 06/09/2025 12:45 PM EST Procedure visit [facility] [address] [place] [address] Samm Ledesma, DEFLECTOR OPERATOR [address] [facility] [address] [place] [address] 08/12/2025 10:40 AM EST Appointment [facility] Women's Wellness [place] [address] [facility] [place] [address] Matt Ulrich MD [address] [place] [address] [address] [place] [address] documented as of this encounter Goals [...] documented as of this encounter Care Teams Controller Repairer And Tester Relationship Specialty [place] [address] [place] [id number] PCP - General 06/21/10 03/08/25 Arlyn Schmidt MD [address] [place], [place] 9[address] Consulting Physician Internal Medicine-Endocrinology, Diabetes & Metabolism 11/28/20 Tacho Echavarria MD 1 [place] [address] Internal Medicine-Medical Oncology 11/12/23 Matt Ulrich MD 1 [place], [place] 849[address]17 Surgery-Surgical Oncology 12/04/23 Eze Brock Pastoral Care 12/13/23 Annette Walker, ARACELI Lcac Radar Operator/Navigator 05/13/24 Batool Celis MD 1 [facility] [place] [address] Radiation Oncologist Radiology-Radiation Oncology 06/08/24 documented as of this encounter
--- OUTSIDE RECORDS SUMMARY | 2025-03-16 09:46 | XMS_ITS | Encounter Summary ---
Author Organization [place] [address] Care Team Providers Care Aws Consultant Name Role Phone Chetna Cedeno MD Primary Care Provider [phone] Arlyn Schmidt MD Unavailable [phone] Tacho Echavarria MD Unavailable [phone] Matt Ulrich MD Unavailable [phone] Eze Brock Unavailable Annette Walker Unavailable [phone] Batool Celis MD Unavailable [phone] Encounter Details Date Type Department Care Team (Late st Contact Info) Description 01/15/2025 Plan of Care Documentation [facility] Physical Therapy [address] [place] [address] Social History Tobacco Use Types [...] in a prison (including now)? No 11/07/2023 [facility] IP Transportation Answer D [...] Info) Description 03/18/2025 7:30 AM EDT Appointment [facility] CT [place], [place] [phone] Adryan Rowan MD [address] [facility] [facility] [address] [place] [address] 04/29/2025 9:15 AM EDT Appointment [facility] ON[facility] [place], [place] 3185817 Batool Celis MD [address] [place] [address] [place] [address] 05/19/2025 2:15 PM EST Office Visit [facility] [address] [facility] [address] [place] [address] Sin Tran MD [address] [place] [address] 06/09/2025 12:45 PM EST Procedure visit [facility] [address] [facility] [address] [place], [place] [address] Samm Ledesma, TUG CAPTAIN [address] [place] [address] 08/12/2025 10:40 AM EST Appointment [facility] Women's Wellness [facility] [place] [address] Matt Ulrich MD [address] [place] [address] [address] [place] [address] documented as of this encounter Goals Goal Patient Goal Type Associated Problems Recent Progress Patient-Stated? Author Blood Pressure < 140/90 Blood Pressure 121/77(02/04 2:04 PM EDT) No Chetna Cedeno MD Breast [facility] Breast Health On track(2024 11:27 AM [...] documented as of this encounter Care Teams Aws Consultant Relationship Specialty [place] [address] [place] [address] PCP - General 06/21/10 03/08/25 Arlyn Schmidt MD [address] [place] [address] Consulting Physician Internal Medicine-Endocrinology, Diabetes & Metabolism 11/28/20 Tacho Echavarria MD [address] [place] [address] Internal Medicine-Medical Oncology 11/12/23 Matt Ulrich MD [address] [place] [address] Surgery-Surgical Oncology 12/04/23 Eze Brock Pastoral Care 12/13/23 Annette Walker, ARACELI Bill Adjuster 05/13/24 Batool Celis MD 1 [facility] [place] [address] Radiation Oncologist Radiology-Radiation Oncology 06/08/24 documented as of this encounter
--- OUTSIDE RECORDS SUMMARY | 2025-03-16 09:46 | XMS_ITS | Encounter Summary ---
Author Organization [place] [address] Care Team Providers Care Garment Mender Name Role Phone Chetna Cedeno MD Primary Care Provider [phone] Arlyn Schmidt MD Unavailable [phone] Tacho Echavarria MD Unavailable [phone] Matt Ulrich MD Unavailable [phone] Eze Brock Unavailable Annette Walker Unavailable [phone] Batool Celis MD Unavailable [phone] Encounter Details Date Type Department Care Team (Late st Contact Info) Description 03/04/2025 Orders Only [facility] Medical Oncology [place], [place] [phone] Tacho Echavarria MD [address] [place] [address] [phone] Invasive ductal carcinoma of breast, female, right [...] Date Recorded PHQ-2 Total Score 5 07/07/2024 [facility] of Occupat ional Health - Occupational Stress [...] in a residential (including now)? No 11/07/2023 [facility] [...] Info) Description 03/18/2025 7:30 AM EDT Appointment [facility] [place] [address] Adryan Rowan MD [address] [facility] [address] [place] [address] 04/29/2025 9:15 AM EDT Appointment [facility] ON[facility] [place], [place] 159[address]17 Batool Celis MD [address] [place] [address] [place] [address] 05/19/2025 2:15 PM EST Office Visit [facility] [address] [facility] [address] [facility] [address] [place] [address] Sin Tran MD [address] [place] [address] 06/09/2025 12:45 PM EST Procedure visit [facility] [address] [facility] [address] [place] [address] Samm Ledesma APRN [address] [facility] [address] [place], [place] 467[address] 08/12/2025 10:40 AM EST Appointment [facility] Women's Wellness [facility] [address] [place] [phone] Matt Ulrich MD [address] [place] [address] [address] [place] [address] Scheduled Orders Name Type Priority Associated Diagnoses [...] 2:04 PM EDT) No Chetna Cedeno MD [facility] Health On track(2024 11:27 AM EDT) No Jasmin Porter, RAUL Note: Patient acknowledges understanding of new diagnosis, plan of care, available resources and how to contact Nurse Navigator with any future questions or concerns. [facility] Not on track(2024 11:27 AM EDT) No Jasmin Porter, RAUL Note: Patient will be compliant with monthly SBE and is aware of who to contact for any unusual or concerning findings. [facility] Health On track(2024 [...] documented as of this encounter Care Teams Garment Mender Relationship Specialty [place] [address] [place] [phone] PCP - General 06/21/10 03/08/25 Arlyn Schmidt MD [address] [place], [place] [address] Consulting Physician Internal Medicine-Endocrinology, Diabetes & Metabolism 11/28/20 Tacho Echavarria MD 1 [place], [place] 1218617 Internal Medicine-Medical Oncology 11/12/23 Matt Ulrich MD 1 [place], [place] 2316[address] Surgery-Surgical Oncology 12/04/23 Eze Brock Pastoral Care 12/13/23 Annette Walker, RIB CHOPPER Fire Extinguisher Inspector 05/13/24 Batool Celis MD 1 [facility] [place] [address] Radiation Oncologist Radiology-Radiation Oncology 06/08/24 documented as of this encounter
--- OUTSIDE RECORDS SUMMARY | 2025-03-16 09:47 | XMS_ITS | Encounter Summary ---
Author Organization [place] [address] Care Team Providers Care Mold Cleaner Name Role Phone Chetna Cedeno MD Primary Care Provider [phone] Arlyn Schmidt MD Unavailable [phone] Tacho Echavarria MD Unavailable [phone] Matt Ulrich MD Unavailable [phone] Eze Brock Unavailable Annette Walker Unavailable [phone] Batool Celis MD Unavailable [phone] Encounter Details Date Type Department Care Team (Latest Contact Info) Description 01/27/2025 Results Follow-Up [facility] 1 [place] [address] Benito Snell, PharmD PHARMACOGENOMIC PANEL [...] from your doctor or pharmacy? Never 11/07/2023 [facility] Utilities Answer [...] 07/07/2024 [facility] of Occupat ional [facility] - Occupational Stress Questionnaire Answer Date Recorded [...] in a alf (including now)? No 11/07/2023 [facility] IP Transportation [...] Info) Description 03/18/2025 7:30 AM EDT Appointment [facility] Center CT [place], [place] 823[address]17 Adryan Rowan MD [address] [facility] [address] [place] [address] 04/29/2025 9:15 AM EDT Appointment [place] [address] Batool Celis MD [address] [place] [address] [place] [address] 05/19/2025 2:15 PM EST Office Visit [facility] [address] [place] [address] [address] [place] [address] [place] [address] [place] [address] 06/09/2025 12:45 PM EST Procedure visit [facility] [address] [facility] [address] [place], [place] [address] Samm Ledesma, NURSE SCHOOL [address] [facility] [address] [place], [place] [address] 08/12/2025 10:40 AM EST Appointment [facility] Women's Wellness [facility] 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 Primary hypercoagulable state documented in this encounter Additional Health Concerns Assessment Noted Time PHQ-9 Depression Total Score: 17 024 8:39 AM EST PHQ-2 Depression Total Score: 5 07/07/20 24 8:39 AM EST documented as of this encounter Care Teams Mold Cleaner Relationship Specialty [place] [address] [place] [address] PCP - General 06/21/10 03/08/25 Arlyn Schmidt MD [address] [place] [address] Consulting Physician Internal Medicine-Endocrinology, Diabetes & Metabolism 11/28/20 Tacho Echavarria MD [address] [place] [address] Internal Medicine-Medical Oncology 11/12/23 Matt Ulrich MD 1 [place] [address] Surgery-Surgical Oncology 12/04/23 Eze Brock Pastoral Care 12/13/23 Annette Walker, REAL ESTATE CLOSER Identity Access Management Architect 05/13/24 Batool Celis MD 1 [facility] [place] [address] Radiation Oncologist Radiology-Radiation Oncology 06/08/24 documented as of this encounter
--- OUTSIDE RECORDS SUMMARY | 2025-03-16 09:47 | XMS_ITS | Encounter Summary ---
Author Organization [place] [address] Care Team Providers Care Automotive Drivability Technician Name Role Phone Chetna Cedeno MD Primary Care Provider [phone] Arlyn Schmidt MD Unavailable [phone] Tacho Echavarria MD Unavailable [phone] Matt Ulrich MD Unavailable [phone] Eze Brock Unavailable Annette Walker Unavailable [phone] Batool Celis MD Unavailable [phone] Reason for Visit * Reason Comments Medication Refill Encounter Details Date Type Department Care Team (Late st Contact Info) Description 01/15/2025 Refill [facility] [address] [place] [place] [address] [place] [address] [place] [address] Medication Refill Social History Tobacco [...] a skilled nursing (including now)? No 11/07/2023 [facility] IP Transportation Answer [...] Info) Description 03/18/2025 7:30 AM EDT Appointment [facility] CT [place] [phone] Adryna Rowan MD [address] [facility] [address] [place] [address] 04/29/2025 9:15 AM EDT Appointment [facility] [place] [address] Batool Celis MD 1 [facility] [place] [address] 05/19/2025 2:15 PM EST Office Visit [facility] [address] [facility] [address] [place] [address] Sin Tran MD 4900 [place] [address] 06/09/2025 12:45 PM EST Procedure visit [facility] [place] [phone] [facility] [address] [place] [address] Samm Ledesma, TRADE ECONOMIST [address] [facility] [facility] [address] [place] [address] 08/12/2025 10:40 AM EST Appointment [facility] Women's Wellness [place] [facility] [place] [address] Matt Ulrich MD [address] [place] [address] [address] [place] [address] documented as of this encounter [...] as of this encounter Care Teams Automotive Drivability Technician Relationship Specialty [place] [address] [place] [phone] PCP - General 06/21/10 03/08/25 Arlyn Schmidt MD [address] [place], [place] [address] Consulting Physician Internal Medicine-Endocrinology, Diabetes & Metabolism 11/28/20 Tacho Echavarria MD 1 [place] [address] Internal Medicine-Medical Oncology 11/12/23 Matt Ulrich MD 1 [place], [place] [address] Surgery-Surgical Oncology 12/04/23 Eze Brock Pastoral Care 12/13/23 Annette Walker, ARACELI Substitute Nurse 05/13/24 Batool Celis MD 1 [facility] [place] [address] Radiation Oncologist Radiology-Radiation Oncology 06/08/24 documented as of this encounter
--- OUTSIDE RECORDS SUMMARY | 2025-03-16 09:47 | XMS_ITS | Encounter Summary ---
Author Organization [place] [address] Care Team Providers Care Tube Bender Hand Name Role Phone Chetna Cedeno MD Primary Care Provider [phone] Arlyn Schmidt MD Unavailable [phone] Tacho Echavarria MD Unavailable [phone] Matt Ulrich MD Unavailable [phone] Eze Brock Unavailable Annette Walker Unavailable [phone] Batool Celis MD Unavailable [phone] Reason for Referral * Genetic Lab Test (Routine) - Authorization Not Needed Specialty Diagnoses / Procedures Referred By Contac t Referred To Contact Lab Diagnoses 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) Procedures PHARMACOGENOMIC PANEL Aury Delgado MD 1 [place] [address] Phone: tel: fax: Referral ID Status Reason Start Date Expiration Date Visits Requested Visits Authorized [id number] Authorization Not Needed 01/21/2025 01/21/2026 1 1 Encounter Details Date Type Department Care Team (Late st Contact Info) Description 01/21/2025 Orders Only [facility] 1 [place] [address] Osvaldo Johnson, Clerical Staff Invasive ductal carcinoma [...] doctor or pharmacy? Never 11/07/2023 [facility] Utilities Answer Date Recorded In the past [...] Recorded PHQ-2 Total Score 5 07/07/2024 [facility] [place] of Occupat ional Health - Occupational Stress [...] in a detention (including now)? No 11/07/2023 [facility] [...] Info) Description 03/18/2025 7:30 AM EDT Appointment [facility] [place] [address] Adryan Rowan MD [address] [place] [address] [address] [place] [address] 04/29/2025 9:15 AM EDT Appointment [facility] [place] [address] Batool Celis MD 1 [facility] [place] [address] 05/19/2025 2:15 PM EST Office Visit [address] [address] Sin Tran MD [address] [place] [address] 06/09/2025 12:45 PM EST Procedure visit [facility] [address] [place] [address] Samm Ledesma APRN [address] [place] [address] 08/12/2025 10:40 AM EST Appointment [facility] Women's Wellness [facility] [place] [id number] Matt Ulrich MD [address] [place] [address] [address] [place] [address] documented as of this encounter Goals Goal Patient Goal Type Associated Problems Recent Progress Patient-Stated? Author Blood Pressure < 140/90 Blood Pressure 121/77(02/04 2:04 PM EDT) No Chetna Cedeno MD Breast [facility] Breast Health On track(2024 11:27 AM EDT) No Jasmin Porter, RAUL Note: Patient acknowledges understanding of new diagnosis, plan of care, available resources and how to contact Nurse Navigator with any future questions or concerns. Breast [facility] Breast Health Not on track(2024 11:27 [...] HTR2C CC. Pharmacogenomic Lab Method See Comment [facility] Comment: This test was developed, and its performance characteristics determined by [facility], a clinical laboratory located at [address] [place] [address]. These tests have not been cleared or approved by the U.S. Food and Drug Administration. The FDA does not require this test to go through premarket FDA review. [facility] is certified under CLIA-88 and accredited by the [employer] as qualified to perform high-complexity testing. This test is approved for clinical use by the [facility]. This test should not be regarded as investigational or for research. *Genomic DNA was analyzed by PCR using [employer] TaqMan and/or QuepasaQ probe-based methods to interrogate the variant locations [...] are associated with more than one haplotype, [facility] infers and reports the most likely diplotype [...] Call. *The variant detection methods validated by [facility] provide >99.9% accuracy for the adult population; [...] Clara through the website or by calling [phone]. Blood 01/06/2025 01/22/2025 Narrative [facility] - 01/27/2025 This result has genomic variants that were not included in this document. us Aury Delgado MD [facility] - ORDERABLES Final Result CLARA [address] [facility] [address] [phone] documented in this encounter Visit Diagnoses Diagnosis 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)- Primary documented in this encounter Additional Health Concerns Assessment Noted Time PHQ-9 Depression Total Score: 17 024 8:39 AM EST PHQ-2 Depression Total Score: 5 07/07/20 24 8:39 AM EST documented as of this encounter Care Teams Tube Bender Hand Relationship Specialty [place] [address] [place] [address] PCP - General 06/21/10 03/08/25 Arlyn Schmidt MD [address] [place] [address] Consulting Physician Internal Medicine-Endocrinology, Diabetes & Metabolism 11/28/20 Tacho Echavarria MD [address] [place] [address] Internal Medicine-Medical Oncology 11/12/23 Matt Ulrich MD [address] [place] [address] Surgery-Surgical Oncology 12/04/23 Eze Brock Pastoral Care 12/13/23 Annette Walker MSW Security Sme 05/13/24 Batool Celis MD 1 [facility] [place] [address] Radiation Oncologist Radiology-Radiation Oncology 06/08/24 documented as of this encounter
--- OUTSIDE RECORDS SUMMARY | 2025-03-16 09:47 | XMS_ITS | Encounter Summary ---
Author Organization [place] [address] Care Team Providers Care Tour Operator Name Role Phone Chetna Cedeno MD Primary Care Provider [phone] Arlyn Schmidt MD Unavailable [phone] Tacho Echavarria MD Unavailable [phone] Matt Ulrich MD Unavailable [phone] Eze Brock Unavailable Annette Walker Unavailable [phone] Batool Celis MD Unavailable [phone] Encounter Details Date Type Department Care Team (Late st Contact Info) Description 01/18/2025 Telephone [facility] Medical Oncology [place], [place] [id number] Tacho Echavarria MD [address] [place] [address] [phone] Social History Tobacco Use Types Packs/Day Years [...] Date Recorded PHQ-2 Total Score 5 07/07/2024 [facility] [place] of Occupat ional Health - Occupational Stress [...] a group home (including now)? No 11/07/2023 [facility] IP Transportation Answer D ate Recorded In [...] her apartment. Letter created and sent through [employer] documented in this encounter Plan of Treatment Upcoming Encounters Date Type Department Care Team (Late st Contact Info) Description 03/18/2025 7:30 AM EDT Appointment [facility] [place] [address] [place] [address] [place] [address] [address] [place] [address] 04/29/2025 9:15 AM EDT Appointment [facility] [place] [address] Batool Celis MD [address] [place] [address] [place] [address] 05/19/2025 2:15 PM EST Office Visit [address] [address] Sin Tran MD [address] [place] [address] 06/09/2025 12:45 PM EST Procedure visit [facility] [address] [place] [address] Baltazar Samm Dillon, AIRCRAFT LIFE SUPPORT FITTER [address] [place] [address] 08/12/2025 10:40 AM EST Appointment [facility] Women's Wellness [facility] [place] [address] Matt Ulrich MD [address] [place] [address] 254 [place] [address] documented as of this encounter Goals Goal Patient Goal Type Associated Problems Recent Progress Patient-Stated? Author Blood Pressure < 140/90 Blood Pressure 121/77(02/04 2:04 PM EDT) No Chetna Cedeno MD Breast [facility] Breast Health On track(2024 11:27 AM EDT) No Jasmin Porter, RAUL Note: Patient acknowledges understanding of new diagnosis, plan of care, available resources and how to contact Nurse Navigator with any future questions or concerns. Breast [facility] Breast Health Not on track(2024 11:27 AM EDT) No Jasmin Porter, RAUL Note: Patient will be compliant with monthly SBE and is aware of who to contact for any unusual or concerning findings. Breast [facility] Breast Health On track(2024 11:27 [...] documented as of this encounter Care Teams Tour Operator Relationship Specialty [place] [address] [place] [address] PCP - General 06/21/10 03/08/25 Arlyn Schmidt MD [address] [place], [place] [id number] Consulting Physician Internal Medicine-Endocrinology, Diabetes & Metabolism 11/28/20 Tacho Echavarria MD 1 [place], [place] [id number] Internal Medicine-Medical Oncology 11/12/23 Matt Ulrich MD 1 [place], [place] [id number] Surgery-Surgical Oncology 12/04/23 Eze Brock Pastoral Care 12/13/23 Annette Walker, ARACELI Exterior Interior Specialist 05/13/24 Batool Celis MD 1 [facility] [place] [address] Radiation Oncologist Radiology-Radiation Oncology 06/08/24 documented as of this encounter
--- OUTSIDE RECORDS SUMMARY | 2025-03-16 09:47 | XMS_ITS | Encounter Summary ---
Author Organization [place] [address] Care Team Providers Care Shoulder Boner Name Role Phone Chetna Cedeno MD Primary Care Provider [phone] Arlyn Schmidt MD Unavailable [phone] Tacho Echavarria MD Unavailable [phone] Matt Ulrich MD Unavailable [phone] Eze Brock Unavailable Annette Walker Unavailable [phone] Batool Celis MD Unavailable [phone] Reason for Visit * Reason Onset Date Comments Paperwork/forms 03/02/2025 paperwork receiv ed from [facility] Encounter Details Date Type Department Care Team (Late st Contact Info) Description 03/02/[address] [facility] Diabetes [place] [address] [facility] [address] [place] [address] Arlyn Schmidt MD [address] [place] [address] Paperwork/forms (paperwork received from [facility]) Social History Tobacco Use Types [...] Date Recorded PHQ-2 Total Score 5 07/07/2024 [facility] [place] of Occupat ional Health - Occupational Stress [...] (including now)? No 11/07/2023 [facility] IP Transportation Answer D ate Recorded [...] Assessment Author No 12/06/2022 2:08 PM EDT AaliyahdanyaMacarena hernández CCMSharonda documented as of this encounter Mental Status * Because of a physical, mental or emotional condition, does this person have serious difficulty concentrating, remembering or making decisions? Answer Entry Date Author No 12/06/2022 2:08 PM EDT Macarena Marion CCMSharonda documented in this encounter Miscellaneous Notes * Telephone Encounter - Toya Wilson MA - 03/02/2025 11:13 AM EDT attempted to reach patient about a fax we received from [facility], to ask if we are sending medical records there or if records are being sent to [place]. Unable to leave due to it not being set up. documented in this encounter Plan of Treatment Upcoming Encounters Date Type Department Care Team (Late st Contact Info) Description 03/18/2025 7:30 AM EDT Appointment [facility] [place] [address] Adryan Rowan MD [address] [place] [address] [address] [place] [address] 04/29/2025 9:15 AM EDT Appointment [place] [address] Batool Celis MD [address] [place] [address] [place] [address] 05/19/2025 2:15 PM EST Office Visit [address] [address] Sin Tran MD [address] [facility] [place] [place] [address] 06/09/2025 12:45 PM EST Procedure visit [facility] [address] [place] [address] Mauriciolorna Samm Santana, APPLICATIONS SUPPORT LEAD [address] [place] [address] 08/12/2025 10:40 AM EST Appointment [facility] Women's Wellness [place] One [facility] [place] [address] Matt Ulrich MD [address] [place] [address] [address] [place] [address] documented as of this encounter [...] documented as of this encounter Care Teams Shoulder Boner Relationship Specialty [place] [address] [place] [address] PCP - General 06/21/10 03/08/25 Arlyn Schmidt MD [address] [place], [place] [id number] Consulting Physician Internal Medicine-Endocrinology, Diabetes & Metabolism 11/28/20 Tacho Echavarria MD 1 [place], [place] [phone] Internal Medicine-Medical Oncology 11/12/23 Matt Ulrich MD 1 [place], [place] [address] Surgery-Surgical Oncology 12/04/23 Eze Brock Pastoral Care 12/13/23 Annette Walker, ARACELI Pattern And Chain Maker 05/13/24 Batool Celis MD 1 [facility] [place] [address] Radiation Oncologist Radiology-Radiation Oncology 06/08/24 documented as of this encounter
--- OUTSIDE RECORDS SUMMARY | 2025-03-16 09:47 | XMS_ITS | Encounter Summary ---
Author Organization [place] [address] Care Team Providers Care Mental Health Nurse Name Role Phone Chetna Cedeno MD Primary Care Provider [phone] Arlyn Schmidt MD Unavailable [phone] Tacho Echavarria MD Unavailable [phone] Matt Ulrich MD Unavailable [phone] Eze Brock Unavailable Annette Walker Unavailable [phone] Batool Celis MD Unavailable [phone] Reason for Visit * Reason Onset Date Comments Symptom Call 01/29/2025 Diarrhea, body a ches, vomiting Encounter Details Date Type Department Care Team (Late st Contact Info) Description 01/29/2025 Telephone [facility] Care Medical Oncology [place], [place] [phone] Tacho Echavarria MD [address] [place] [address] [phone] Symptom Call (Diarrhea, body aches, vomiting) Social [...] or pharmacy? Never 11/07/[address] [facility] Utilities Answer Date Recorded [...] Total Score 5 07/07/2024 [facility] [place] of Occupat ional Health - Occupational Stress [...] a care home (including now)? No [facility]/07/2023 [facility] IP Transportation [...] can make it all the way to [facility] without being sick. She will [...] the Patient seen at:[facility] Preferred call back number:[phone] RN is aware documented in this encounter Plan of Treatment Upcoming Encounters Date Type Department Care Team (Late st Contact Info) Description 03/18/2025 7:30 AM EDT Appointment [place] [address] Adryan Rowan MD [address] [place] [address] [address] [place] [address] 04/29/2025 9:15 AM EDT Appointment [facility] [place] [address] Batool Celis MD 1 [facility] [place] [address] 05/19/2025 2:15 PM EST Office Visit [address] [place] [address] Sin Tran MD [address] [place] [address] 06/09/2025 12:45 PM EST Procedure visit [facility] [address] [place] [address] Samm Ledesma, FINANCIAL RESERVE CLERK [address] [place] [address] 08/12/2025 10:40 AM EST Appointment [facility] Women's Wellness [place] [address] [facility] [address] [place], [place] [phone] Matt Ulrich MD [address] [place] [address] [address] [place], [place] [phone] documented as of this encounter Goals Goal [...] documented as of this encounter Care Teams Mental Health Nurse Relationship Specialty [place] [address] [place] [address] PCP - General 06/21/10 03/08/25 Arlyn Schmidt MD [address] [place] [address] Consulting Physician Internal Medicine-Endocrinology, Diabetes & Metabolism 11/28/20 Tacho Echavarria MD 1 [place] [address] Internal Medicine-Medical Oncology 11/12/23 Matt Ulrich MD 1 [place] [address] Surgery-Surgical Oncology 12/04/23 Eze Brock Pastoral Care 12/13/23 Annette Walker, COLLISION TECHNICIAN Interactive Art Director 05/13/24 Batool eClis MD 1 [facility] [place] [address] Radiation Oncologist Radiology-Radiation Oncology 06/08/24 documented as of this encounter
--- OUTSIDE RECORDS SUMMARY | 2025-03-16 09:47 | XMS_ITS | Encounter Summary ---
Author [place] [address] Care Team Providers Care Ops Analyst Name Role Phone Chetna Cedeno MD Primary Care Provider [phone] Arlyn Schmidt MD Unavailable [phone] Tacho Echavarria MD Unavailable [phone] Matt Ulrich MD Unavailable [phone] Eze Brock Unavailable Annette Walker Unavailable [phone] Batool Celis MD Unavailable [phone] Encounter Details Date Type Department Care Team (Late st Contact Info) Description 01/28/2025 Orders Only [facility] Medical Oncology [place], [place] [phone] Tacho Echavarria MD [address] [place] [address] [phone] Invasive ductal carcinoma of breast, female, right [...] Recorded PHQ-2 Total Score 5 07/07/2024 [facility] [place] of Occupat ional Health - Occupational Stress [...] a long term (including now)? No 11/07/2023 [facility] IP Transportation Answer D ate [...] Info) Description 03/18/2025 7:30 AM EDT Appointment [facility] [[email or web address] [place] [address] Adryan Rowan MD [address] [facility] [address] [place] [phone] 04/29/2025 9:15 AM EDT Appointment [facility] [place], [place] [phone] Batool Celis MD [address] [place] [address] [facility] [place] [address] 05/19/2025 2:15 PM EST Office Visit [facility] [address] [facility] [address] [facility] 1D [place] [address] Sin Tran MD [address] [place] [address] 06/09/2025 12:45 PM EST Procedure visit [facility] [address] [facility] [address] [place] [address] Samm Ledesma APRN [address] [facility] [address] [place], [place] [id number] 08/12/2025 10:40 AM EST Appointment [facility] Women's Wellness [facility] [address] [place] [phone] Matt Ulrich MD [address] [facility] [address] [place] [address] documented as of this encounter Goals Goal [...] 1,245 pg/mL 02/04/2025 4:31 PM EDT [facility]ED [employer] Folate 6.16 >=4.80 ng/mL 02/04/2025 4:31 PM EDT [facility] [employer] Blood VENOUS BLOOD / Unknown Venipuncture / Unknown 02/04/2025 2:03 PM EDT 02/04/2025 2:03 PM EDT Narrative [facility] [employer] - 02/04/2025 4:31 PM EDT Ingestion of haroon doses of biotin (>5 mg/day) taken within 8 hours of drawing blood sample can interfere with this immunoassay test. Tacho Echavarria MD CHEMISTRY ORDERABLES Final Result [facility]ED [facility] [employer] 1 [facility], [place] [address] * (ABNORMAL) CBC WITH DIFF (02/04/2025 2:03 PM EDT) [facility] WBC 8.1 3.7 - 10.3 x10(3)/mc L 02/04/2025 2:07 PM EDT [facility] RBC 2.95(L) 3.90 - 5.20 x10(6)/mc L 02/04/2025 2:07 PM EDT [facility] Hgb 9.4(L) 11.2 - 15.7 g/dL 02/04/2025 2:07 PM EDT [facility] Hct 28.1(L) 34.0 - 45.0 % 02/04/2025 2:07 PM EDT [facility] MCV 95.3 80.0 - 100.0 fL 02/04/2025 2:07 PM EDT [facility] MCH 31.9 26.0 - 34.0 pg 02/04/2025 2:07 PM EDT [facility] MCHC 33.5 30.7 - 35.5 g/dL 02/04/2025 2:07 PM EDT [facility] RDW 15.0(H) <=14.9 % 02/04/2025 2:[address] [facility] Platelet 163 155 - 369 x10(3)/mc L 02/04/2025 2:07 PM EDT [facility] MPV 8.8 8.8 - 12.5 fL 02/04/2025 2:07 PM EDT [facility] Neut # Prelim 5.6 1.6 - 6.1 x10(3)/mc L 02/04/2025 2:07 PM EDT [facility] Comment:Preliminary automate d absolute neutrophil count. Value may change if manual differential is indicated. Neut Percent 68.4 % 02/04/2025 2:07 PM EDT [facility] Comment:Neutrophils equals s egs plus bands Imm Gran% 0.2 % 02/04/2025 2:07 PM EDT [facility] Comment:Automated count of m etamyelocytes, myelocytes and promyelocytes. Lymph Percent 23.4 % 02/04/2025 2:07 PM EDT [facility] [place] Percent 5.7 % 02/04/2025 2:07 PM EDT [facility] Eos Percent 2.1 % 02/04/2025 2:07 PM EDT [facility] Baso Percent 0.2 % 02/04/2025 2:07 PM EDT [facility] Neut # 5.6 1.6 - 6.1 x10(3)/mc L 02/04/2025 2:[address] [facility] Comment:Neutrophils equals s egs plus bands IMMGRAN# 0.0 0.0 - 0.1 x10(3)/mc L 02/04/2025 2:07 PM EDT [facility] Comment:Automated count of m etamyelocytes, myelocytes and promyelocytes. An absolute IG <0.1 is reported as 0.0. Lymph # 1.9 1.2 - 3.9 x10(3)/mc L 02/04/2025 2:[address] [facility] [place] # 0.5 0.3 - 0.9 x10(3)/mc L 02/04/2025 2:07 PM EDT [facility] Eos# 0.2 0.0 - 0.5 x10(3)/mc L 02/04/2025 2:07 PM EDT [facility] Baso # 0.0 0.0 - 0.1 x10(3)/mc L 02/04/2025 2:[address] [facility] Blood VENOUS BLOOD / Unknown Venipuncture / Unknown 02/04/2025 2:03 PM EDT 02/04/2025 2:03 PM EDT Tacho Echavarria MD HEMATOLOGY ORDERABLES Final Result [facility] 1 [place] [address] * IRON+TIBC (02/04/2025 2:02 PM EDT) Iron 82 30 - 160 mcg/dL 02/04/2025 2:59 PM EDT [facility] Transferrin 279 200 - 360 mg/dL 02/04/2025 2:59 PM EDT [facility] Transferrin Saturation 21 20 - 50 % 02/04/2025 2:59 PM EDT [facility] TIBC 391 250 - 400 mcg/dL 02/04/2025 2:59 PM EDT [facility] Blood VENOUS BLOOD / Unknown Venipuncture / Unknown 02/04/2025 2:02 PM EDT 02/04/2025 2:02 PM EDT Tacho Echavarria MD CHEMISTRY ORDERABLES Final Result [address] [address] [facility] 1 [facility], [place] [address] * (ABNORMAL) COMPREHENSIVE METABOLIC PANEL (02/04/2025 2:02 PM EDT) Sodium 142 136 - 145 mmol/L 02/04/2025 2:28 PM EDT [facility] Potassium 3.3(L) 3.5 - 5.0 mmol/L 02/04/2025 2:28 PM EDT [facility] Chloride 108(H) 98 - 107 mmol/L 02/04/2025 2:28 PM EDT [facility] Total CO2 19(L) 22 - 29 mmol/L 02/04/2025 2:28 PM EDT [facility] Anion Gap 15 7 - 16 mmol/L 02/04/2025 2:28 PM EDT [facility] Calcium 8.6 8.6 - 10.4 mg/dL 02/04/2025 2:28 PM EDT [facility] Glucose Lvl 134(H) 70 - 99 mg/dL 02/04/2025 2:28 PM EDT [facility] BUN 12 6 - 20 mg/dL 02/04/2025 2:28 PM EDT [facility] Creatinine 0.78 0.51 - 1.30 mg/dL 02/04/2025 2:28 PM EDT [facility] Albumin 3.8 3.5 - 5.2 gm/dL 02/04/2025 2:28 PM EDT [facility] Total Protein 6.0(L) 6.4 - 8.3 gm/dL 02/04/2025 2:28 PM EDT [facility] Bili Total 0.3 0.2 - 1.3 mg/dL 02/04/2025 2:28 PM EDT [facility] ALT 8 <=41 U/L 02/04/2025 2:28 PM EDT [facility] AST 12 <=40 U/L 02/04/2025 2:28 PM EDT [facility] Alk Phos 95 36 - 123 U/L 02/04/2025 2:28 PM EDT [facility] eGFR (CKD-EPIcr 2020) 88 >=60 mL/min/1.7 3 m2 02/04/2025 2:28 PM EDT [facility] Comment:Estimated GFR was ca lculated using the CKD-EPIcr (2020) equation refit without race. The equation is recommended by the National Kidney Foundation - [place] [employer] of Nephrology Task Force. Blood VENOUS BLOOD / Unknown Venipuncture / Unknown 02/04/2025 2:02 PM EDT 02/04/2025 2:02 PM EDT Tacho Echavarria MD CHEMISTRY ORDERABLES Final Result [facility] 1 [place] [address] documented in this encounter Visit Diagnoses Diagnosis Invasive ductal carcinoma of breast, female, right (HCC)- Primary documented in this encounter Additional Health Concerns Assessment Noted Time PHQ-9 Depression Total Score: 17 024 8:39 AM EST PHQ-2 Depression Total Score: 5 07/07/20 24 8:39 AM EST documented as of this encounter Care Teams Ops Analyst Relationship Specialty [place] [address] [place] [address] PCP - General 06/21/10 03/08/25 Arlyn Schmidt MD [address] [place] [address] Consulting Physician Internal Medicine-Endocrinology, Diabetes & Metabolism 11/28/20 Tacho Echavarria MD 1 [place] [address] Internal Medicine-Medical Oncology 11/12/23 Matt Ulrich MD 1 [place] [address] Surgery-Surgical Oncology 12/04/23 Eze Brock Pastoral Care 12/13/23 Annette Walker, JAVA SECURITY ENGINEER Public Area Supervisor 05/13/24 Batool Celis MD 1 [facility] [place] [address] Radiation Oncologist Radiology-Radiation Oncology 06/08/24 documented as of this encounter
--- OUTSIDE RECORDS SUMMARY | 2025-03-16 09:47 | XMS_ITS | Encounter Summary ---
Author Organization [place] Address [facility] [place] [address] Care Team Providers Care Documentation Specialist Name Role Phone Chetna Cedneo MD Primary Care Provider Arlyn Schmidt MD Unavailable [phone] Tacho Echavarria MD Unavailable Matt Ulrich MD Unavailable Eze Brock Unavailable Cheryl Nair RN Unavailable [phone] Sanam Murray SPECIAL EDUCATION INSTRUCTOR Unavailable Unavailable Annette Walker SPECIAL EDUCATION INSTRUCTOR Unavailable [phone] Batool Celis MD Unavailable [phone] Ayush Marrero MD Primary Care Provider [phone] Encounter Details Date Type Department Care Team (Late st Contact Info) Description 07/06/2024 Orders Only [facility] [place] [address] Shilpa Tan MD [address] [place] [phone] Social History Tobacco Use Types Packs/Day Years [...] [facility] of Occupat ional [facility] - Occupational Stress Questionnaire Answer Date [...] in a jail (including now)? No 11/07/2023 [facility] IP Transportation [...] 07/06/2024 4:32 PM Kayla Lee RN * [place] Suicide Severity Rating Scale (Q shift for [...] Info) Description 03/18/2025 7:30 AM EDT Appointment [facility] [place] [address] Adryan Rowan MD [address] [facility] [address] [place] [address] 04/29/2025 9:15 AM EDT Appointment [place] [address] Batool Celis MD [address] [place] [address] [place] [address] 05/19/2025 2:15 PM EST Office Visit [address] [place] [address] Sin Tran MD [address] [place] [address] 06/09/2025 12:45 PM EST Procedure visit [facility] [address] [facility] [address] [place] [address] Samm Ledesma, LEYLA [address] [facility] [address] [place] [address] 08/12/2025 10:40 AM EST Appointment [facility] Women's Wellness [facility] [place] [address] Matt Ulrich MD [address] [place] [address] [address] [place] [address] documented as of this encounter Goals Goal [...] EST) 07/06/2024 12:5 1 PM EST Narrative [facility] - 09/24/2024 2:57 PM EDT Requesting Provider: MATT Womack Specimen = [id number] us Shilpa Tan MD PATHOLOGY ORDERABLES Final R esult [facility] 1 [place] [address] documented in this encounter Visit Diagnoses Not on filedocumented in this encounter Additional Health Concerns Infection Onset Date Last Indicated Resolved Time COVID-19 09/04/2024 09/04/2024 09/24/2024 10:1 2 PM EDT Assessment Noted Time PHQ-9 Depression Total Score: 12 024 12:00 PM EDT documented as of this encounter Care Teams Documentation Specialist Relationship Specialty [place] [address] [place] [address] PCP - General 06/21/10 03/08/25 Ayush Marrero MD [address] [place] [address] PCP - General Family Medicine 03/09/25 Arlyn Schmidt MD [address] [place] [address] Consulting Physician Internal Medicine-Endocrinology , Diabetes & Metabolism 11/28/20 Tacho Echavarria MD 1 [place], [place] [phone] Internal Medicine-Medical Oncology 11/12/23 Matt Ulrich MD 1 [place] [address] Surgery-Surgical Oncology 12/04/23 Eze Brock Pastoral Care 12/13/23 Cheryl Nair, RN Oncology Nurse Navigator 03/25/2412/13 Sanam Murray MSW Strip Machine Operator 04/10/24 07/30/24 Annette Walker MSW Strip Machine Operator 05/13/24 Batool Celis MD 1 [facility] [address] Radiation Oncologist Radiology-Radiation Oncology 06/08/24 documented as of this encounter
--- OUTSIDE RECORDS SUMMARY | 2025-03-16 09:47 | XMS_ITS | Encounter Summary ---
Author Organization [place] [address] Care Team Providers Care Radiation Technician Name Role Phone Chetna Cedeno MD Primary Care Provider Arlyn Schmidt MD Unavailable [phone] Tacho Echavarria MD Unavailable Matt Ulrich MD Unavailable [phone] Eze Brock Unavailable Cheryl Nair RN Unavailable [phone] Annette Walker PICTURE PAINTER Unavailable [phone] Batool Celis MD Unavailable [phone] Encounter Details Date Type Department Care Team (Late st Contact Info) Description 12/07/2024 Results Follow-Up [facility] ENDOSCOPY [address] [place] [address] King Oliva MD 340 [place] [address] PATHOLOGY TISSUE REQUEST Social History Tobacco Use [...] a senior living (including now)? No 11/07/2023 [facility] IP Transportation [...] AM EDT Appointment [facility] [place] [address] Adryan Rowan MD [address] [facility] [address] [place] [phone] 04/29/2025 9:15 AM EDT Appointment [facility] [place], [place] [phone] Batool Celis MD [address] [place] [address] [place] [address] 05/19/2025 2:15 PM EST Office Visit [facility] [address] [place] [place] [address] [address] Sin Tran MD [address] [place] [address] 06/09/2025 12:45 PM EST Procedure visit [facility] [address] [facility] [address] [place] [address] Samm Ledesma APRN [address] [facility] [address] [place], [place] [phone] 08/12/2025 10:40 AM EST Appointment [facility] Women's Wellness [facility] [place] [address] Matt Ulrich MD [address] [facility] [place] [address] documented as of this encounter Goals Goal [...] documented as of this encounter Care Teams Radiation Technician Relationship Specialty [place] [address] [address] [place] [phone] PCP - General 06/21/10 03/08/25 Arlyn Schmidt MD [address] [place], [place] [address] Consulting Physician Internal Medicine-Endocrinology , Diabetes & Metabolism 11/28/20 Tacho Echavarria MD 1 [place], [place] [id number] Internal Medicine-Medical Oncology 11/12/23 Matt Ulrich MD 1 [place] [address] Surgery-Surgical Oncology 12/04/23 Eze Brock Pastoral Care 12/13/23 Cheryl Nair, RN Oncology Nurse Navigator 03/25/2412/13 Annette Walker, PICTURE PAINTER Wastewater Technician 05/13/24 Batool Celis MD 1 [facility] [place], [place] [address] Radiation Oncologist Radiology-Radiation Oncology 06/08/24 documented as of this encounter
--- OUTSIDE RECORDS SUMMARY | 2025-03-16 09:47 | XMS_ITS | Encounter Summary ---
Author Organization [place] [address] Care Team Providers Care Vacuum Truck Driver Name Role Phone Chetna Cedeno MD Primary Care Provider [phone] Arlyn Scmhidt MD Unavailable [phone] Tacho Echavarria MD Unavailable [phone] Matt Ulrich MD Unavailable [phone] Eze Brock Unavailable Annette Walker Unavailable [phone] Batool Celis MD Unavailable [phone] Reason for Visit * Reason Comments Medication Refill Encounter Details Date Type Department Care Team (Late st Contact Info) Description 01/15/2025 Refill [facility] [address] [facility] [address] [place] [address] Samm Ledesma, REFRIGERATION INSULATOR [address] [facility] [address] [place] [address] Medication Refill Social History Tobacco Use Types [...] Total Score 5 07/07/2024 [facility] of Occupat ional Health - [...] in a snf (including now)? No 11/07/2023 [facility] IP Transportation Answer D [...] Description 03/18/2025 7:30 AM EDT Appointment [facility] [place] [address] Adryan Rowan MD [address] [place] [address] [address] [place] [address] 04/29/2025 9:15 AM EDT Appointment [facility] [place] [address] Batool Celis MD 1 [facility] [place] [address] 05/19/2025 2:15 PM EST Office Visit [address] [place] [address] Sin Tran MD [address] [facility] [place] [address] 06/09/2025 12:45 PM EST Procedure visit [facility] [address] [facility] [address] [place], [place] [address] Samm Ledesma, REFRIGERATION INSULATOR [address] [facility] [address] [place], [place] [address] 08/12/2025 10:40 AM EST Appointment [facility] Women's Wellness [place] [facility] [place] [address] Matt Ulrich MD [address] [place] [address] [address] [place] [address] documented as of this encounter [...] documented as of this encounter Care Teams Vacuum Truck Driver Relationship Specialty [place] [address] [place] [address] PCP - General 06/21/10 03/08/25 Arlyn Schmidt MD [address] [place], [place] [phone] Consulting Physician Internal Medicine-Endocrinology, Diabetes & Metabolism 11/28/20 Tacho Echavarria MD 1 [place], [place] [phone] Internal Medicine-Medical Oncology 11/12/23 Matt Ulrich MD 1 [place], [place] [address] Surgery-Surgical Oncology 12/04/23 Eze Brock Pastoral Care 12/13/23 Annette Walker, ARACELI Director 05/13/24 Batool Celis MD 1 [facility] [place] [address] Radiation Oncologist Radiology-Radiation Oncology 06/08/24 documented as of this encounter
--- OUTSIDE RECORDS SUMMARY | 2025-03-16 09:47 | XMS_ITS | Clinical Summary ---
Author Organization [facility] Address [address] [place] [address] Phone Care Team Providers Care Head Packager Name Role Phone Chetna Cedeno MD Primary Care Provider [phone] Allergies Active Allergy Reactions Criticality Noted Date [...] EDT - 01/02/2025 7:27 PM EDT Emergency [facility] Emergency Department [address] [place] [address] Dallin Espinoza MD Heat exhaustion, [...] 5:13 PM EDT) [facility] BLD UREA NITROGEN 16 8 - 26 mg/dL [facility]MI[facility] SODIUM 140 135 - 145 mmol/L [facility] POTASSIUM 3.2(L) 3.6 - 5.1 mmol/L [facility] CHLORIDE 107 98 - 111 mmol/L [facility] CO2 20(L) 21 - 31 mmol/L [facility] GLUCOSE, RANDOM 89 70 - 99 mg/dL [facility] CREATININE 1.06 0.60 - 1.20 mg/dL [facility] ANION GAP 13 4 - 16 mmol/L [facility] CALCIUM 9.0 8.5 - 10.4 mg/dL [facility] ESTIMATED GFR 61 >59 mL/min/1.7 3 m2 [facility] Comment: Estimated GFR was calculated using the CKD-EPI cr (2020) equation refit without race. The equation is recommended by the National Kidney Foundation - [place] Society of Nephrology Task Force. Tested at [place] [id number] Whole Blood 01/02/2025 5:13 PM EDT 01/02/2025 5:25 PM EDT Dallin Espinoza MD LAB BLOOD ORDERABLES Final Result [facility] [address] [place] [address] [place] [address] * (ABNORMAL) CBC w/ Diff (01/02/2025 5:13 PM EDT) [facility] WBC 7.1 3.6 - 10.5 THOU/[facility] CHEMISTRY [facility] RBC 3.75(L) 3.80 - 5.20 MIL/mcL [facility] HEMOGLOBIN 11.2(L) 12.0 - 15.2 g/dL [facility] HEMATOCRIT 33.6(L) 36 - 46 % [facility] MCV 89.6 82 - 97 fL [facility] MCH 30.0 27 - 33 pg [facility]MI[facility] MCHC 33.5 32 - 36 g/dL [facility] RDW 16.0 12.3 - 17.0 % [facility] PLATELET 206 140 - 375 THOU/mcL [facility] MPV 6.9(L) 7.0 - 11.5 fL [facility] ABS. NEUTROPHIL 3.60 1.80 - 7.70 THOU/mcL [facility] ABS LYMPHS 3.00 1.00 - 4.00 THOU/mcL [facility] ABS MONOS 0.30 0.20 - 0.90 THOU/mcL [facility] ABS EOS 0.10 0.03 - 0.45 THOU/mcL CHEMISTRY [facility] ABS BASOS 0.10 0.00 - 0.20 THOU/mcL [facility] SEGS 51 % [facility] LYMPHOCYTES 43 % CHEMISTR Y NORTH MONOCYTES 4 % [facility] EOSINOPHIL 1 % [facility] BASOPHILS 1 % CHEMISTRY [facility] Comment:Tested at [facility] [address] [facility] [address] Whole Blood 01/02/2025 5:13 PM EDT 01/02/2025 5:25 PM EDT us Dallin Espinoza MD LAB BLOOD ORDERABLES Final Result [facility] [address] [place] [address] [facility] [address] [place] [address] * ECG 12 lead (01/02/2025 4:37 PM [...] QTcF 417 ms TH TRACEMASTER QRS Horizontal [place] -19 deg TH TRACEMASTER QRS AXIS 16 deg TH TRACEMASTER I-40 Horizontal [place] 46 deg TH TRACEMASTER I-40 FRONT AXIS -17 deg TH TRACEMASTER T-40 Horizontal [place] -50 deg TH TRACEMASTER T-40 Front [place] 51 deg TH TRACEMASTER T Horizontal [place] 52 deg TH TRACEMASTER T WAVE AXIS 16 deg TH TRACEMASTER S-T Horizontal [place] 60 deg TH TRACEMASTER S-T Front [place] 24 deg TH TRACEMASTER ECG IMPRESSION - BORDERLINE ECG - TH TRACEMASTER ECG IMPRESSION SR-Sinus rhythm-normal P axis, V-rate 50-99 TH TRACEMASTER ECG IMPRESSION LVHVP-Probable left ventricular hypertrophy-mul tiple LVH criteria TH TRACEMASTER ECGGUID [id number] TH TRACEMASTER 01/02/2025 4:37 PM EDT us Dallin Espinoza MD ECG ORDERABLES Final Resu lt TH TRACEMASTER from Last 3 Months Insurance [facility] MEDICAID Care Teams Head Packager Relationship Specialty Start Date End Date Chetna Cedeno MD [facility] [address] [place] [address] PCP - General Family Medicine 01/02/25
--- OUTSIDE RECORDS SUMMARY | 2025-03-16 09:47 | XMS_ITS | Encounter Summary ---
Author Organization [place] [address] Care Team Providers Care Route Deliverer Name Role Phone Chetna Cedeno MD Primary Care Provider [phone] Arlyn Schmidt MD Unavailable [phone] Tacho Echavarria MD Unavailable [phone] Matt Ulrich MD Unavailable [phone] Eze Brock Unavailable Annette Walker Unavailable [phone] Batool Celis MD Unavailable [phone] Reason for Visit * Reason Comments Oncology Nurse Navigation Encounter Details Date Type Department Care Team (Late st Contact Info) Description 01/29/2025 Patient Outreach [facility] [address] [place], [place] [id number] Shilpa Clien, RN Oncology Nurse Navigation Social History Tobacco [...] th e electric, gas, oil, or water [employer] threatened to shut off services in your [...] PHQ-2 Total Score 5 07/07/2024 [facility] of Occupat ional Health - Occupational Stress [...] in a residential (including now)? No 11/07/2023 [facility] IP Transportation [...] Info) Description 03/18/2025 7:30 AM EDT Appointment [facility] [place] [address] Adryan Rowan MD [address] [place] [address] [address] [place] [id number] 04/29/2025 9:15 AM EDT Appointment [place] [address] Batool Celis MD [address] [facility] [place] [address] 05/19/2025 2:15 PM EST Office Visit [address] [address] Sin Tran MD [address] [place], [place] [address] 06/09/2025 12:45 PM EST Procedure visit [facility] [address] [place] [address] Samm Ledesma, ANNEALING FURNACE TENDER [address] [place] [address] 08/12/2025 10:40 AM EST Appointment [facility] Women's Wellness [place] [address] [facility] [place] [address] Matt Ulrich MD [address] [place] [address] [address] [place] [address] documented as of this encounter [...] documented as of this encounter Care Teams Route Deliverer Relationship Specialty [place] [address] [place] [id number] PCP - General 06/21/10 03/08/25 Arlyn Schmidt MD [address] [place], [place] [address] Consulting Physician Internal Medicine-Endocrinology, Diabetes & Metabolism 11/28/20 Tacho Echavarria MD 1 [place], [place] [phone] Internal Medicine-Medical Oncology 11/12/23 Matt Ulrich MD 1 [place], [place] [address] Surgery-Surgical Oncology 12/04/23 Eze Brock Pastoral Care 12/13/23 Annette Walker, SOLAR PANEL INSTALLER Ammonia Box Tender 05/13/24 Batool Celis MD [address] [facility] [address] Radiation Oncologist Radiology-Radiation Oncology 06/08/24 documented as of this encounter
--- OUTSIDE RECORDS SUMMARY | 2025-03-16 09:47 | XMS_ITS | Encounter Summary ---
Author Organization [place] [address] Care Team Providers Care Radio Equipment Repairer Name Role Phone Chetna Cedeno MD Primary Care Provider [phone] Arlyn Schmidt MD Unavailable [phone] Tacho Echavarria MD Unavailable [phone] Matt Ulrich MD Unavailable [phone] Eze Brock Unavailable Annette Walker Unavailable [phone] Batool Celis MD Unavailable [phone] Reason for Visit * Reason Comments Pharmacy Migraine Medication Management Qulipta Encounter Details Date Type Department Care Team (Latest Contact Info) Description 01/28/2025 Specialty Pharmacy [facility] [address] [place] [address] Sheridan Arellano CPhT Pharmacy Migraine [...] th e electric, gas, oil, or water [employer] threatened to shut off services in your [...] Score 5 07/07/2024 [facility] [place] of Occupat ional Health - Occupational Stress [...] in a long-term (including now)? No 11/07/2023 [facility] IP Transportation Answer [...] refills of Qulipta. Copay amount: $0 Sent [employer] message. Patient informed of copay. * Aaliyah [...] Appointment [email or web address] [place] [address] Adryan Rowan MD [address] [place] [address] [address] [place] [address] 04/29/2025 9:15 AM EDT Appointment [place] [address] Batool Celis MD [address] [place] [address] [place] [address] 05/19/2025 2:15 PM EST Office Visit [facility] [address] [place] [address] Sin Tran MD [address] [place] [address] 06/09/2025 12:45 PM EST Procedure visit [facility] [address] [place], [place] [id number] Samm Ledesma, BOAT OFFICER [address] [place], [place] [address] 08/12/2025 10:40 AM EST Appointment [facility] Women's Wellness [facility] [place] [address] Matt Ulrich MD [address] [place] [address] [address] [place] [address] documented as of this encounter [...] documented as of this encounter Care Teams Radio Equipment Repairer Relationship Specialty [place] [address] [place] [phone] PCP - General 06/21/10 03/08/25 Arlyn Schmidt MD [address] [place] [address] Consulting Physician Internal Medicine-Endocrinology, Diabetes & Metabolism 11/28/20 Tacho Echavarria MD 1 [place] [address] Internal Medicine-Medical Oncology 11/12/23 Matt Ulrich MD 1 [place], [place] [id number] Surgery-Surgical Oncology 12/04/23 Eze Brock Pastoral Care 12/13/23 Annette Walker, ARACELI Mini Shifter 05/13/24 Batool Celis MD 1 [place] [address] Radiation Oncologist Radiology-Radiation Oncology 06/08/24 documented as of this encounter
--- OUTSIDE RECORDS SUMMARY | 2025-03-16 09:47 | XMS_ITS | Encounter Summary ---
Author [place] [address] Care Team Providers Care Anime Artist Name Role Phone Chetna Cedeno MD Primary Care Provider [phone] Arlyn Schmidt MD Unavailable [phone] Tacho Echavarria MD Unavailable [phone] Matt Ulrich MD Unavailable [phone] Eze Brock Unavailable Annette Walker Unavailable [phone] Batool Celis MD Unavailable [phone] Reason for Visit * Reason Onset Date Comments Patient Question 01/28/2025 question about test result Encounter Details Date Type Department Care Team (Late st Contact Info) Description 01/28/2025 Telephone Cancer Care Medical Oncology [place], [place] [id number] Tacho Echavarria MD [address] [place] [id number] Patient Question (question about test result ) [...] a senior care (including now)? No 11/07/2023 [facility] IP Transportation [...] results are in and forwarded to . [email or web address]) message sent to patient, no need to move appt up sooner at this time. * Telephone Encounter - Sendy Waddell NA - 01/28/2025 10:43 AM EDT Reason for call: Patient [facility], said it was something to do withDNA and what medications to take. Said she was unable to read results and was calling to see if anything needed to be done or if she was ok to wait until her appt. Preferred call back number: [phone] documented in this encounter Plan of Treatment Upcoming Encounters Date Type Department Care Team (Late st Contact Info) Description 03/18/2025 7:30 AM EDT Appointment [facility] [place] [address] Adryan Rowan MD [address] [place] [address] [address] [place] [address] 04/29/2025 9:15 AM EDT Appointment [facility]C [place], [place] [phone] Batool Celis MD [address] [facility] [place] [address] 05/19/2025 2:15 PM EST Office Visit [facility] [address] [place] [address] Sin Tran MD [address] [place] [address] 06/09/2025 12:45 PM EST Procedure visit [facility] [address] [place] [address] Samm Ledesma INDIRECT SALES REPRESENTATIVE [address] [place] [address] 08/12/2025 10:40 AM EST Appointment [facility] Women's Wellness [place] [address] [facility] [place] [address] Matt Ulrich MD [address] [facility] [address] [place] [address] documented as of this encounter Goals Goal [...] documented as of this encounter Care Teams Anime Artist Relationship Specialty [place] [address] [place] [address] PCP - General 06/21/10 03/08/25 Arlyn Scmhidt MD [address] [place] [address] Consulting Physician Internal Medicine-Endocrinology, Diabetes & Metabolism 11/28/20 Tacho Echavarria MD 1 [place], [place] [id number] Internal Medicine-Medical Oncology 11/12/23 Matt Ulrich MD 1 [place] [address] Surgery-Surgical Oncology 12/04/23 Eze Brock Pastoral Care 12/13/23 Annette Walker, ARACELI Outreach Worker 05/13/24 Batool Celis MD [address] [facility] [place] [address] Radiation Oncologist Radiology-Radiation Oncology 06/08/24 documented as of this encounter
--- OUTSIDE RECORDS SUMMARY | 2025-03-16 09:47 | XMS_ITS | Encounter Summary ---
Author [place] [address] Care Team Providers Care Hair Clipper Power Name Role Phone Chetna Cedeno MD Primary Care Provider [phone] Arlyn Schmidt MD Unavailable [phone] Tacho Echavarria MD Unavailable [phone] Matt Ulrich MD Unavailable [phone] Eze Brock Unavailable Annette Walker SUPPLY CHAIN ENGINEER Unavailable [phone] Batool Celis MD Unavailable [phone] Encounter Details Date Type Department Care Team (Late st Contact Info) Description 01/29/2025 Social Work [facility] Cancer Care [facility] [place] [address] Sonny Fleming, SUPPLY CHAIN ENGINEER Social History Tobacco Use Types Packs/Day Years [...] th e electric, gas, oil, or water [employer] threatened to shut off services in your [...] Recorded PHQ-2 Total Score 5 07/07/2024 [facility] [place] of Occupat ional Health - Occupational Stress [...] in a snf (including now)? No 11/07/2023 [facility] IP Transportation Answer [...] Date Author No 12/06/2022 2:08 PM EDT AaliyahmasonMacarena CCMA documented in this encounter Progress Notes * Sonny Fleming MSW - 01/29/2025 3:12 PM EDT 01/29/25 1511 Contracting Specialist Assessment Referred By phone call Disease/[place] [facility] String Winding Machine Operator Assignment Breast cancer Referral [facility]: [facility] Reason for Referral transportation Identified Needs Adjustment to illness;Transportation Social Work Interventions Transportation;Brief Couseling/Support;Education/Information FARHAD Romo received a call from pt stating that she is in need of a waiver for transportation from her health insurance as she is not feeling well enough to drive to her appointments. ASSET RECOVERY SPECIALIST followed up with MAGAN Reid to [...] Info) Description 03/18/2025 7:30 AM EDT Appointment [facility] [place] [address] Adryan Rowan MD [address] [place] [address] [address] [place] [address] 04/29/2025 9:15 AM EDT Appointment [place] [address] Batool Celis MD [address] [place] [address] [place] [address] 05/19/2025 2:15 PM EST Office Visit [facility] [address] [place] [address] Sin Tran MD [address] [place] [address] 06/09/2025 12:45 PM EST Procedure visit [facility] [address] [facility] [address] [facility] [address] [place] [address] Samm Ledesma APRN [address] [place] [address] 08/12/2025 10:40 AM EST Appointment [facility] Women's Wellness [facility] [place] [address] Matt Ulrich MD [address] [place] [address] [address] [place] [address] documented as of this encounter [...] as of this encounter Care Teams Hair Clipper Power Relationship Specialty [place] [address] [place] [address] PCP - General 06/21/10 03/08/25 Arlyn Schmidt MD [address] [place], [place] [address] Consulting Physician Internal Medicine-Endocrinology, Diabetes & Metabolism 11/28/20 Tacho Echavarria MD 1 [place], [place] [phone] Internal Medicine-Medical Oncology 11/12/23 Matt Ulrich MD 1 [place], [place] [address] Surgery-Surgical Oncology 12/04/23 Eze Brock Pastoral Care 12/13/23 Annette Walker, ARACELI String Winding Machine Operator 05/13/24 Batool Celis MD 1 [facility] [place] [address] Radiation Oncologist Radiology-Radiation Oncology 06/08/24 documented as of this encounter
--- OUTSIDE RECORDS SUMMARY | 2025-03-16 09:47 | XMS_ITS | Clinical Summary ---
Author Organization [facility] Address [address] [facility] [address] [address] [place], [place] [address] Phone Care Team Providers Care Special Events Driver Name Role Phone Arlyn Schmidt MD Unavailable [phone] Tacho Echavarria MD Unavailable [phone] Matt Ulrich MD Unavailable [phone] Eze Brock Unavailable Annette Walker TRUST MANAGER ASSISTANT Unavailable [phone] Batool Celis MD Unavailable [phone] Ayush Marrero MD Primary Care Provider [phone] Allergies Active Allergy Reactions Criticality Noted Date [...] Mis Spacer 1 Each by [facility]Non-Drug; Combo Route) route as needed. 1 Device [...] Active fluticasone propionate (FLONASE) 50 mcg/actuation Nasl Oolitic, Suspension 1 Oolitic by Nasal route daily. 1 Each 07/03/20 [...] migh t be different from the original. [facility] - Sin Tran MD Controlled [...] or Functional capacity documented (EVERY VISIT)01/03/2022 Pharmacy: [address] [address] [facility] [phone] AIS POA: 02/10/2025 josh as expected #[id number] Josh 08-05-2018 adm Josh 08-14-18 adm UDS 08-08-18 adm Care gap audit completed by Medina White RN on 01/01/2022. 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 uses [facility] as directed by me. Asthma 12/20/2010 03/26/2022 Encounters * This document contains information received from the source organization and may not represent a complete record from that organization. Date Type Department Care Team Description 03/10/2025 1:30 PM EDT Procedure visit [facility] [address] [place] [address] Krissy Rhodes APRN Chronic migraine without aura, intractable, with status migrainosus (Primary Dx) Discharge Disposition: Home or Self Care 03/09/2025 Telephone [facility] [place] [address] Tacho Echavarria MD 03/04/2025 Orders Only [facility] [place], [place] [id number] Tacho Echavarria MD Invasive ductal carcinoma of breast, female, right (HCC) (Primary Dx) 03/04/2025 Telephone [facility] [address] [place] [address] Linda Osborne MD Medication Refill 03/02/2025 Telephone [facility] Diabetes [place] [address] [facility] [address] [place] [address] Arlyn Schmidt MD Paperwork/forms (paperwork received from [facility]) 02/26/2025 Specialty Pharmacy [facility] [address] [place] [address] Charlotte Martino, [facility] Migraine Medication Management (Qulipta/Nurtec) 02/25/2025 Specialty Pharmacy [facility] [address] [place] [phone] Annette Renee, [facility] Oncology Management (Abemaciclib) 02/15/2025 Telephone [facility] [place] [address] Tacho Echavarria MD 02/12/2025 Telephone [facility] [place] [address] Eze Rowland MD Follow-up (Updated form, loan deferment form ) 02/10/2025 10:30 AM EDT Office Visit [place] [address] [place] [address] Sin Tran MD Chronic pain syndrome (Primary Dx); Post laminectomy syndrome 02/10/2025 Patient Outreach [facility] [address] Tacho Echavarria MD Oncology Nurse Navigation 02/10/2025 Orders Only [facility] [place] [address] Shilpa Cline RN 02/08/2025 Refill [facility] [place] [phone] Tacho Echavarria MD Medication Refill 02/05/2025 Telephone [facility] [place] [phone] Tacho Echavarria MD Symptom Call (lightheaded / headache ) 02/05/2025 Telephone [facility] [place] [phone] Narda Vickers, Clerical Staff Integrative Oncology Referral 02/05/2025 Telephone [facility] [address] [place] [address] Chetna Cedneo MD Other () 02/04/2025 2:03 PM EDT - 02/04/2025 11:59 PM EDT Hospital Encounter [facility] [place] [phone] Tacho Echavarria MD Invasive ductal carcinoma of breast, female, right (HCC) (Primary Dx); Chemotherapy follow-up examination; Encounter for monitoring aromatase inhibitor therapy; Vitamin D deficiency; Port-A-Cath in place; Reactive depression Discharge Disposition: Home or Self Care 02/04/2025 1:48 PM EDT - 02/04/2025 2:02 PM EDT Hospital Encounter [place] [address] Tacho Echavarria MD Invasive ductal carcinoma of breast, female, right (HCC) (Primary Dx) Discharge Disposition: Home or Self Care 02/04/2025 11:00 AM EDT - 02/04/2025 1:47 PM EDT Hospital Encounter [facility] [address] [place] [place] [address] Tacho Echavarria MD Mosko, Mallory, PA-C Invasive ductal carcinoma of breast, female, right (HCC) (Primary Dx); Encounter for monitoring aromatase inhibitor therapy; Encounter for screening mammogram for breast cancer Discharge Disposition: Home or Self Care 02/04/2025 Social Work [facility] Cancer Care [facility] [address] [place] [address] Annette Walker MSW 02/04/2025 Telephone [facility] [address] [facility]17 Aliya Harden, Clerical Staff Appointment Needed 02/03/2025 Telephone [place] [address] [place] [address] Sin Tran MD Other (Pain pump meds) 02/03/2025 Specialty Pharmacy [facility] [address] [place] [address] Anisa Lozoya CPhT Pharmacy Oncology Management (Abemaciclib) 02/02/2025 11:20 AM EDT Telemedicine [facility] [address] [place] [address] Samm Ledesma APRN Chronic migraine without aura, intractable, with status migrainosus (Primary Dx); Paresthesia; Invasive ductal carcinoma of breast, female, right (HCC); Pituitary lesion; Radicular syndrome of left leg Discharge Disposition: Home or Self Care 02/02/2025 Specialty Pharmacy [facility] [address] [place] [address] Kevin Chacon PharmD Pharmacy Migraine Medication Management (Nurtec) 02/01/2025 Social Work [facility] Cancer [facility] [address] [place] [place] [address] Sonny Fleming, [facility] 02/01/2025 Telephone [facility] [place] [address] Tacho Echavarria MD Other (Currently inpatient at [facility] ) 01/29/2025 Telephone [facility] [place] [phone] Tacho Echavarria MD Symptom Call (Diarrhea, body aches, vomiting) 01/29/2025 Social Work [facility] Cancer [facility] [address] [place] [phone] Sonny Fleming, [facility] 01/29/2025 Patient Outreach [place] [address] Shilpa Cline, lead software tester Nurse Navigation 01/28/2025 Orders Only [facility] [place] [address] Tacho Echavarria MD Invasive ductal carcinoma of breast, female, right (HCC) (Primary Dx) 01/28/2025 Telephone [facility] [place] [address] Tacho Echavarria MD Patient Question (question about test result ) 01/28/2025 Specialty Pharmacy [facility] [address] [place] [address] Sheridan Arellano, district wildlife manager Pharmacy Migraine Medication Management (Qulipta) 01/27/2025 Results Follow-Up [facility] [address] [place] [address] Benito Snell, PharmD PHARMACOGENOMIC PANEL 01/21/2025 Orders Only [facility] [address] [place], [place] [id number] Osvaldo Johnson, Clerical Staff 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) (Primary Dx) 01/18/2025 Telephone [facility] [place] [address] Tacho Echavarria MD 01/15/2025 1:30 PM EDT - 01/15/2025 11:59 PM EDT Hospital Encounter [facility] [place] [address] Tacho Echavarria MD Argent, Lillian L, APRN Hot flashes related to aromatase inhibitor therapy (Primary Dx); Vitamin D deficiency Discharge Disposition: Home or Self Care 01/15/2025 1:15 PM EDT - 01/15/2025 1:29 PM EDT Hospital Encounter [place] [address] Tacho Echavarria MD Invasive ductal carcinoma of breast, female, right (HCC) (Primary Dx); Cold sweat; Lightheaded; Shakiness Discharge Disposition: Home or Self Care 01/15/2025 11:55 AM EDT - 01/15/2025 1:14 PM EDT Hospital Encounter [facility] Physical Therapy [address] [place] [address] Kylah Lawler, PT Discharge Disposition: Home or Self Care 01/15/2025 Refill [facility] [address] [place] [address] Chetna Cedeno MD Medication Refill 01/15/2025 Refill [facility] [address] [place] [address] Samm Ledesma APRN Medication Refill 01/15/2025 Refill [facility] [place], [place] [phone] Tacho Echavarria MD Medication Refill 01/15/2025 Plan of Care Documentation [facility] Physical Therapy [address] [place] [address] 01/15/2025 Plan of Care Documentation [facility] Physical Therapy [address] [place] [phone] 01/15/2025 Telephone [facility] [place] [address] Tacho Echavarria MD Symptom Call (shakiness, light headed, cold chills, and breaking out in sweats ) 01/15/2025 Specialty Pharmacy [facility] [address] [place] [address] [facility] Migraine Medication Management (Ubrelvy) 01/14/2025 Refill [facility] [place] [address] Tacho Echavarria MD Medication Refill 01/13/2025 2:56 PM EDT - 01/13/2025 11:59 PM EDT Hospital Encounter [facility] Physical Therapy [address] [place] [phone] Shaunna Workman PT Discharge Disposition: Home or Self Care 01/13/2025 Plan of Care Documentation [facility] Physical Therapy [address] [place] [address] 01/11/2025 Orders Only [facility] [place] [phone] Tacho Echavarria MD 01/07/2025 Specialty Pharmacy [facility] [address] [place], [place] [phone] Anisa Lozoya CPhT Pharmacy Oncology Management (Abemaciclib) 01/06/2025 1:14 PM EDT - 01/06/2025 11:59 PM EDT Hospital Encounter [facility] [place] [phone] Tacho Echavarria MD Invasive ductal carcinoma of [...] EDT Hospital Encounter [place] [address] Tacho Echavarria MD Invasive ductal carcinoma of breast, female, right (HCC) (Primary Dx) Discharge Disposition: Home or Self Care 01/01/2025 Patient Outreach [facility] [address] [place] [address] Samm Ledesma APRN Botox Injection (~03/02/2025 ) 12/31/2024 Specialty Pharmacy [facility] [address] [place] [address] Annamarie Mark, [facility] Migraine Medication Management (Qulipta) 12/30/2024 Social Work [facility] [address] [facility]17 Sonny Fleming, [facility] 12/29/2024 Social Work [facility] Dr[address] [facility]17 Annette Walker, TRUST MANAGER ASSISTANT 12/29/2024 Orders Only [facility] [address] [place] [address] Blake Antoine, [facility] Restless leg syndrome; Essential hypertension, benign 12/29/2024 Refill [facility] [address] [place] [address] [address] [place] [address] Munir Hilton MD Medication Refill 12/29/2024 [facility]ill [facility] [address] [place] [address] Chetna Cedeno MD Medication Refill 12/29/2024 Telephone [facility] [place] [address] Tacho Echavarria MD 12/28/2024 Orders Only [place] [address] Tacho Echavarria MD 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) (Primary Dx) 12/25/2024 Specialty Pharmacy [facility] [address] [place] [address] Hilary Rivas, [facility] Pharmacy Oncology Management; Pharmacy Reassessment (abemaciclib (Verzenio)) 12/25/2024 Telephone [facility] Women's Wellness [facility] [address] [place] [phone] Jasmin Porter RN 12/23/2024 Specialty Pharmacy [facility] [address] [place] [address] Anisa Lozoya, [facility] Migraine Medication Management (Qulipta pa renewal) 12/23/2024 Telephone [facility] [place] [phone] Tacho Echavarria MD 12/23/2024 Telephone [facility] [address] [place] [address] Tacho Echavarria MD Follow-up 12/14/2024 11:09 AM EDT - 12/14/2024 11:59 PM EDT Hospital Encounter [facility] Physical Therapy [address] [place] [address] Kylah Lawler, PT Discharge Disposition: Home or Self Care from Last 3 Months Immunizations Immunization Administration Dates Next Due Influenza High Dose 06/25/2024, 4(Deferred: Other - [facility] Influenza Vaccine Quadrivalent PF 03/27/2023,01/2015 [...] Location: [facility]; Service: Endoscopy GASTRIC BYPASS SURGERY 05/01/2017 Abdomen/N/A LAPAROSCOPIC SLEEVE GASTRECTOMY ; Surgeon: Marcus Perez MD; Location: [facility] MAIN OR; Service: General IR [...] IMPLANT; Surgeon: Munir Hilton MD; Location: [facility] MAIN OR; Service: Pain Management Medical devices from this surgery are in the Medical Devices section. SPINE SURGERY 01/04/2021 N/A PAIN PUMP PERMANENT IMPLANT; Surgeon: Munir Hilton MD; Location: [facility] MAIN OR; Service: Pain Management [...] radical mastectomy; Surgeon: Matt Ulrich MD; Location: [facility]; Service: General Medical History Medical [...] from your doctor or pharmacy? Never 11/07/2023 Message Bus Utilities Answer Date Recorded In the past 12 months has [employer], [employer], or [employer] threatened to shut off services in your home? No 07/07/2024 Social Connection and Isolation Panel [NHANES] A nswer Date Recorded In a typical week, how many times do you talk on the phone with family, friends, or neighbors? Once a week 11/07/19 How often do you get togethe r with friends or relatives? Once a week 11/07/2023 How often do you attend [facility] or buddhism services? 1 to 4 times [...] PHQ-2 Total Score 5 07/07/2024 [facility] [place] [facility] Occupat ional Health - Occupational Stress [...] halfway (including now)? No 11/07/2023 [facility] IP Transportation Answer D [...] Description 03/18/2025 7:30 AM EDT Appointment [facility] [place] [phone] [place] [address] [place] [address] [address] [place] [id number] 04/29/2025 9:15 AM EDT Appointment [place] [address] Batool Celis MD [address] [facility] [address] 05/19/2025 2:15 PM EST Office Visit [facility] [place] [address] [facility] [address] [place] [address] Sin Tran MD [address] [place] [address] 06/09/2025 12:45 PM EST Procedure visit [facility] [address] [place] [address] Samm Ledesma, LUTE PACKER OR APPLIER [address] [place], [place] [address] 08/12/2025 10:40 AM EST Appointment [facility] Women's Wellness [place] [facility] [place] [address] Matt Ulrich MD [address] [place] [address] [address] [place] [address] Health Maintenance Due Date Last [...] No Chetna Cedeno MD Breast [facility] Breast Health On track(2024 11:27 AM EDT) No Jasmin Porter, RAUL Note: Patient acknowledges understanding of new diagnosis, plan of care, available resources and how to contact Nurse Navigator with any future questions or concerns. [facility] Health Not on track(2024 11:27 AM EDT) No Jasmin Porter, RAUL Note: Patient will be compliant with monthly SBE and is aware of who to contact for any unusual or concerning findings. Breast [facility] Breast Health On track(2024 11:27 AM EDT) No Demi Garibay, RN Note: Patient will be compliant with taking Aromatase Inhibitor daily and understands who to contact to discuss any side effects or complications. Maintain a healthy diet, exercise regularly and maintain an ideal body weight General No Sanam Julio MA Medical Devices Implanted Type Area Mill Operator Device Identifier Shelf Expiration Date Model / Serial / Lot Kit Acc .133in Injex Didi Baso4 Biwing Flxb Rem Tl Preld - [id number] Implanted:Qty: 1 on 02/24/2020 by Munir Hilton MD at [facility] N/A: Back [employer]:NEURO 10/28/2023 [id number] / / [id number] Neurostimulator Rechar Adapt-Stim Sure Scan Intellis - [id number] Implanted:Qty: 1 on 02/24/2020 by Munir Hilton MD at [facility] N/A: Back [employer]:NEURO 12/19/2020 [id number] / [id number] / Kit Lead Percutaneous Mri Surescan Vectris 1x8 60cm - [id number] Implanted:Qty: 1 on 02/24/2020 by Munir Hilton MD at [facility] N/A: Back [employer]:NEURO 09/09/2023 [id number] / / [id number] Kit Lead Percutaneous Mri Surescan Vectris 1x8 60cm - [id number] Implanted:Qty: 1 on 02/24/2020 by Munir Hilton MD at [facility] N/A: Back [employer]:NEURO 10/08/2023 [id number] / / [id number] Device Suturing Mechanical Fixate Tissue Band - [id number] Implanted:Qty: 1 on 02/24/2020 by Munir Hilton MD at [facility] N/A: Back [employer]:NEUROMODULA TION 02/03/2024-- / / [id number] Device Suturing Mechanical Fixate Tissue Band - [id number] Implanted:Qty: 1 on 02/24/2020 by Munir Hilton MD at [facility] N/A: Back [employer]:NEUROMODULA TION 02/03/2024 / / [id number] Envelope Absorbable Tyrx Polyarylate Medium 2.7in X 2.5in - [id number] Implanted:Qty: 1 on 02/24/2020 by Munir Hilton MD at [facility] N/A: Back [employer]:NEURO 12/03/2020 [id number] / / [id number] Device Sut Fixate Anchr Ld Tiss Bnd [id number] - [id number] Implanted:Qty: 1 on 01/04/2021 by Munir Hilton MD at [facility] N/A: Back [employer]:NEUROMODULA TION [id number] 10/25/2024 FB-- / / [id number] Cath It 1-Pc 114cm 86cm Didi 4-Lyr Sut-Ls Pallet Repairer Conn Lng Spin - [id number] Implanted:Qty: 1 on 01/04/2021 by Munir Hilton MD at [facility] N/A: Back [employer]:NEURO 12/10/2022 [id number] / / [id number] Pump It 2.5mm 2p854fv Flxb Synchromed Ii Rsvr Bk - [id number] Implanted:Qty: 1 on 01/04/2021 by Munir Hilton MD at [facility] N/A: Back [employer]:NEURO 01/02/2022 [id number] / [id number] H / Port Infs 8fr Sarah 1.6x2.6mm Xcela Pwr Inj Lpro Ti Pu-11/29/2023 Implanted:Qty: 1 on 11/29/2023 by Joselito Goodwin MD [facility] [id number] / / [id number] Procedures Procedure Name Priority Date/Time Associated Diagnosis [...] - 1,245 pg/mL 02/04/2025 4:31 PM EDT [facility]ure, [facility] Folate 6.16 >=4.80 ng/mL 02/04/2025 4:31 PM EDT [employer] Blood VENOUS BLOOD / Unknown Venipuncture / Unknown 02/04/2025 2:03 PM EDT 02/04/2025 2:03 PM EDT Narrative [facility] - 02/04/2025 4:31 PM EDT Ingestion of haroon doses of biotin (>5 mg/day) taken within 8 hours of drawing blood sample can interfere with this immunoassay test. [facility] Radha Echavarria MD CHEMISTRY ORDERABLES Final Result [facility] [address] [facility] [facility] , [address] [place] [phone] * (ABNORMAL) CBC WITH DIFF (02/04/2025 2:03 PM EDT) Only the most recent of3 resultswithin the time period is included. WBC [...] 15.0(H) <=14.9 % 02/04/2025 2:07 PM EDT [facility] Platelet 163 155 - 369 x10(3)/mc L 02/04/2025 2:07 PM EDT [facility] MPV 8.8 8.8 - 12.5 fL 02/04/2025 2:07 PM EDT [facility] Neut # Prelim 5.6 1.6 - [...] Percent 23.4 % 02/04/2025 2:07 PM EDT [facility] Jackson Percent 5.7 % 02/04/2025 2:07 PM EDT [facility] Eos Percent 2.1 % 02/04/2025 2:07 PM EDT [facility] Baso Percent 0.2 % 02/04/2025 2:07 PM EDT [facility] Neut # 5.6 1.6 - 6.1 [...] 3.9 x10(3)/mc L 02/04/2025 2:07 PM EDT [facility] Jackson # 0.5 0.3 - 0.9 x10(3)/mc L 02/04/2025 2:07 PM EDT [facility] Eos# 0.2 0.0 - 0.5 x10(3)/mc L 02/04/2025 2:07 PM EDT [facility] Baso # 0.0 0.0 - 0.1 x10(3)/mc L 02/04/2025 2:07 PM EDT [facility] Blood VENOUS BLOOD / Unknown Venipuncture / Unknown 02/04/2025 2:03 PM EDT 02/04/2025 2:03 PM EDT us Tacho Echavarria MD HEMATOLOGY ORDERABLES Final Result Performing Organization Address City[facility] Co de Phone Number [facility] [address] [place] [address] * IRON+TIBC (02/04/2025 2:02 PM EDT) Only the most recent of2 resultswithin the time period is included. Pathologist [facility] Iron 82 30 - 160 mcg/dL 02/04/2025 2:59 PM EDT [facility] Transferrin 279 200 - 360 mg/dL 02/04/2025 2:59 PM EDT [facility], [facility] Transferrin Saturation 21 20 - 50 % 02/04/2025 2:59 PM EDT [facility], [facility] TIBC 391 250 - 400 mcg/dL 02/04/2025 2:59 PM EDT [facility], [facility] Blood VENOUS BLOOD / Unknown Venipuncture / Unknown 02/04/2025 2:02 PM EDT 02/04/2025 2:02 PM EDT us Tacho Echavarria MD CHEMISTRY ORDERABLES Final Result Performing Organization Address [facility] Co de Phone Number [facility] [address] [place] [phone] [facility], [facility] [address] [facility] , [place] [address] * (ABNORMAL) COMPREHENSIVE METABOLIC PANEL (02/04/2025 2:02 PM EDT) Only the most recent of3 resultswithin the time period is included. Sodium 142 136 - 145 mmol/L 02/04/2025 2:28 PM EDT [facility] Potassium 3.3(L) 3.5 - 5.0 mmol/L 02/04/2025 2:28 PM [facility] Chloride 108(H) 98 - 107 mmol/L 02/04/2025 2:28 PM [facility] Total CO2 19(L) 22 - 29 mmol/L 02/04/2025 2:28 PM [facility] Anion Gap 15 7 - 16 mmol/L 02/04/2025 2:28 PM [facility] Calcium 8.6 8.6 - 10.4 mg/dL 02/04/2025 2:28 PM [facility] Glucose Lvl 134(H) 70 - 99 mg/dL 02/04/2025 2:28 PM [facility] BUN 12 6 - 20 mg/dL 02/04/2025 2:28 PM [facility] Creatinine 0.78 0.51 - 1.30 mg/dL 02/04/2025 2:28 PM [facility] Albumin 3.8 3.5 - 5.2 gm/dL 02/04/2025 2:28 PM [facility] Total Protein 6.0(L) 6.4 - 8.3 gm/dL 02/04/2025 2:28 PM [facility] Bili Total 0.3 0.2 - 1.3 mg/dL 02/04/2025 2:28 PM [facility] ALT 8 <=41 U/L 02/04/2025 2:28 PM [facility] AST 12 <=40 U/L 02/04/2025 2:28 PM [facility] Alk Phos 95 36 - 123 U/L 02/04/2025 2:28 PM [facility] eGFR (CKD-EPIcr 2020) 88 >=60 mL/min/1.7 3 m2 02/04/2025 2:28 PM [facility] Comment:Estimated GFR was ca lculated using the CKD-EPIcr (2020) equation refit without race. The equation is recommended by the National Kid[employer] Foundation - [place] [employer] of Nephrology Task Force. Blood VENOUS BLOOD / Unknown Venipuncture / Unknown 02/04/2025 2:02 PM EDT 02/04/2025 2:02 PM EDT us Tacho Echavarria MD CHEMISTRY ORDERABLES Final Result Performing Organization Address City/[facility] Co de Phone Number [facility] 1 [place] [address] * MISCELLANEOUS LAB (01/06/2025 1:13 PM EDT) Only the most recent of2 resultswithin the time period is included. [facility] Tiago 01/07/2025 7:35 AM EDT [facility] Blood VENOUS STRUCTURE / Unknown Port / Unknown 01/06/2025 1:13 PM EDT 01/07/2025 7:31 AM EDT us Tacho Echavarria MD HEMATOLOGY ORDERABLES Final Result Performing Organization Address [facility] de Phone Number [facility] 1 [place] [address] * PHARMACOGENOMIC PANEL (01/06/2025) [facility] Comments See Comment CLARA Comment:Hemizygous males and homozygous females are reported as HTR2C CC. Pharmacogenomic Lab Method See Comment CLARA Comment: This test was developed, and its performance characteristics determined by [facility], a clinical laboratory located at [address] [place] [address]. These tests have not been cleared or approved by the U.S. Food and Drug Administration. The FDA does not require this test to go through premarket FDA review. [facility] is certified under CLIA-88 and accredited by the College of [place] as qualified to perform high-complexity testing. This test is approved for clinical use by the [facility] Department of Health. This test should not be regarded as investigational or for research. *Genomic DNA was analyzed by PCR using [employer] TaqMan and/or ZhanzuoQ probe-based methods to interrogate the variant locations [...] are associated with more than one haplotype, [facility] infers and reports the most likely diplotype [...] Call. *The variant detection methods validated by [facility] provide >99.9% accuracy for the adult population; [...] pharmacogenomic specialist. For additional support, contact [facility] through the website or by calling [phone]. Blood 01/06/2025 01/22/2025 Narrative MARTINOME - 01/27/2025 This result has genomic variants that were not included in this document. us Aury ELIZABETH - ORDERABLES Final Result CLARA [address] [facility] [address] [phone] * MM MAMMO DIGITAL STEPHANE DIAGN RIGHT (01/27/2024 11:20 AM EDT) Anatomical Region Laterality Modality Breast Right Mammography 01/27/2024 12:5 7 PM EDT Impressions 01/27/2024 12:57 PM EDT Incomplete-need additional imaging evaluation ([id number]) ~ RECOMMENDATION: Ultrasound of the right breast. [...] the next mammogram, in accordance with the [place] and the Society of [...] sinceprior. ~ IMPRESSION: Incomplete-need additional imaging evaluation ([id number]) ~ RECOMMENDATION: Ultrasound of the right breast. [...] the next mammogram, in accordance with the [employer] and the Society of Breast Imaging recommendations. Jeanette Smith APRN IMG MAMMOGRAPHY ORDERABLES Final Result * GMED COLONOSCOPY (07/12/2015 2:30 PM EST) 07/12/2015 2:30 PM EST Impressions [facility] - 07/12/2015 3:30 PM EST [...] MD GI PROCEDURE ORDERABLES Doris [email or web address] Result [facility] 1 [place] [address] from Last 3 Months or Most Recently Relevant to Health Maintenance Insurance [employer] [facility] [place] [id number] [employer] [facility] [place] [id number] MDR Advance Directives For more information, please contact: [phone] * Full Code (Latest Code Status on File) Date Activated Date Inactivated Comments 05/01/2017 2:57 PM 05/03/2017 5:30 PM Care Teams Special Events Driver Relationship Specialty Start Date End Date Ayush Marrero MD [address] [place] [id number] PCP - General Family Medicine 03/09/25 Arlyn Schmidt MD [address] [place], [place] [id number] Consulting Physician Internal Medicine-Endocrinology, Diabetes & Metabolism 11/28/20 Tacho Echavarria MD 1 [place] [address] Internal Medicine-Medical Oncology 11/12/23 Matt Ulrich MD 1 [place] [address] Surgery-Surgical Oncology 12/04/23 Eze Brock Pastoral Care 12/13/23 Annette Walker, ARACELI Flash Welding Machine Operator 05/13/24 Batool Celis MD 1 [facility] [place] [address] Radiation Oncologist Radiology-Radiation Oncology 06/08/24
--- OUTSIDE RECORDS SUMMARY | 2025-03-16 09:48 | XMS_ITS | Encounter Summary ---
Author Organization [place] [address] Care Team Providers Care Documentation Lead Name Role Phone Chetna Cedeno MD Primary Care Provider [phone] Arlyn Schmidt MD Unavailable [phone] Tacho Echavarria MD Unavailable [phone] Matt Ulrich MD Unavailable [phone] Eze Brock Unavailable Cheryl Nair RN Unavailable [phone] Annette Walker FARM HELPER Unavailable [phone] Batool Celis MD Unavailable [phone] Ayush Marrero MD Primary Care Provider [phone] Encounter Details Date Type Department Care Team (Late st Contact Info) Description 10/26/2024 Orders Only [facility] Physical Therapy [place] [address] [place] [address] [address] [place] [address] Shaunna Workman PT Social History [...] in a longterm (including now)? No 11/07[facility]20[facility] IP [...] Info) Description 03/18/2025 7:30 AM EDT Appointment [facility] [place] [address] Adryan Rowan MD [address] [facility] [address] [place] [id number] 04/29/2025 9:15 AM EDT Appointment [facility] [place] [phone] Batool Celis MD [address] [place] [address] [place] [address] 05/19/2025 2:15 PM EST Office Visit [facility] [address] [facility] [address] [place] [address] Sni Tran MD [address] [place] [address] 06/09/2025 12:45 PM EST Procedure visit [facility] [address] [facility] [address] [place] [address] Samm Ledesma APRN [address] [facility] [facility] [address] [place], [place] [id number] 08/12/2025 10:40 AM EST Appointment [facility] Women's Wellness [facility] [place] [address] Matt Ulrich MD [address] [facility] [address] [place] [address] documented as of this encounter Goals Goal [...] as of this encounter Care Teams Documentation Lead Relationship Specialty [place] [address] [place] [id number] PCP - General 06/21/10 03/08/25 Ayush Marrero MD [address] [place] [address] PCP - General Family Medicine 03/09/25 Arlyn Schmidt MD [address] [place] [address] Consulting Physician Internal Medicine-Endocrinology , Diabetes & Metabolism 11/28/20 Tacho Echavarria MD 1 [place] [id number] Internal Medicine-Medical Oncology 11/12/23 Matt Ulrich MD 1 [place] [phone] Surgery-Surgical Oncology 12/04/23 Eze Brock Pastoral Care 12/13/23 Cheryl Nair, RN Oncology Nurse Navigator 03/25/2412/13 Annette Walker, FARM HELPER [employer] Member Other Ranks 05/13/24 Batool Celis MD 1 [facility] [place] [address] Radiation Oncologist Radiology-Radiation Oncology 06/08/24 documented as of this encounter
--- OUTSIDE RECORDS SUMMARY | 2025-03-16 09:48 | XMS_ITS | Encounter Summary ---
Author Organization [place] [address] Care Team Providers Care Pool Cleaner Name Role Phone Kit Cedeno MD Primary Care Provider [phone] Arlyn Schmidt MD Unavailable [phone] Cheryl Nair RN Unavailable [phone] Tacho Echavarria MD Unavailable [phone] Matt Ulrich MD Unavailable [phone] Hilary Clemens RN Unavailable Unavaila Eze Caro Unavailable Shila Albrecht RN Unavailable Unavail able Cheyanne To RN Unavailable Unavailabl Rayna Wong RN Unavailable Unavailab Shilpa Olivarez RN Unavailable [phone] Tulio Duong RN Unavailable Unavailable Yaquelin Weaver RN Unavailable Unavailable Pam Wang RN Unavailable Unavailable Jazmín Nair RN Unavailable Unavailable Fidel Rainey RN Unavailable Unavailable Cheryl Nair RN Unavailable [phone] Ophelia Lala RN Unavailable Glo Lee RN Unavailable Unavailab Sanam Evans TRADE FACILITATOR Unavailable Unavailable Hilary Clemens RN Unavailable Unavaila Ruthy Clayton RN Unavailable Unavailable Rayna Partida RN Unavailable Unavailab Artur Nelson RN Unavailable Unavailable Annette Walker TRADE FACILITATOR Unavailable [phone] Emmie Crain RN Unavailable Unavailable Brigida Enriquez RN Unavailable Unavailable Fidel Rainey RN Unavailable Unavailable Batool Celis MD Unavailable [phone] Ayush Marrero MD Primary Care Provider [phone] Encounter Details Date Type Department Care Team (Late st Contact Info) Description 10/25/2023 Orders Only [facility] One [facility] [place] [address] Diane Ellis MD 1 [place] [address] Social History Tobacco Use Types [...] Appointment [facility] [address] [place] [id number] Adryan Rowan MD [address] [place] [address] [address] [place] [phone] 04/29/2025 9:15 AM EDT Appointment [place] [address] Batool Celis MD 1 [facility] [place] [address] 05/19/2025 2:15 PM EST Office Visit [facility] [address] [place] [address] Sin Tran MD [address] [place] [address] 06/09/2025 12:45 PM EST Procedure visit [facility] [address] [place], [place] [phone] Samm Ledesma, POURER OFF [address] [place] [address] 08/12/2025 10:40 AM EST Appointment [facility] Women's Wellness [place] [facility] [place] [address] Matt Ulrich MD [address] [place] [address] [address] [place] [address] documented as of this encounter Goals Goal [...] 10/25/2023 10:4 4 AM EDT Narrative [facility] - 11/11/2023 2:42 PM EDT Requesting Provider: KIT Womack Specimen = [id number] us Diane Ellis MD PATHOLOGY ORDERABLES Final Resul t [facility] 1 [place] [address] documented in this encounter Visit Diagnoses Not on filedocumented in this encounter Additional Health Concerns Infection Onset Date Last Indicated Resolved Time COVID-19 09/04/2024 09/04/2024 09/24/2024 10:1 2 PM EDT documented as of this encounter Care Teams Pool Cleaner Relationship Specialty [place] [address] [place] [address] PCP - General 06/21/10 03/08/25 Ayush Marrero MD [address] [place] [address] PCP - General Family Medicine 03/09/25 Arlyn Schmidt MD [address] [place], [place] [phone] Consulting Physician Internal Medicine-Endocrinolog y, Diabetes & Metabolism 11/28/20 Cheryl Nair, RN Oncology Nurse Navigator 10/29/2302/05 Tacho Echavarria MD [address] [place] [address] Internal Medicine-Medical Oncology 11/12/23 Matt Ulrich MD 1 [place], [place] [phone] Surgery-Surgical Oncology 12/04/23 Hilary Clemens, RN Registered [...] Nurse Infusion Therapy 04/03/24 04/03/24 Sanam Murray, [facility] Thread Cutter Tender 04/10/24 07/30/24 Hilary Clemens, RN Registered Nurse Infusion Therapy 04/21/24 04/21/24 Ruthy Walker RN Registered Nurse Infusion Therapy 04/24/24 04/24/24 Rayna Partida, RN Registered Nurse Infusion Clinic 05/01/24 05/01/24 Artur Roberts RN Registered Nurse Infusion Therapy 05/07/24 05/07/24 Annette Walker, TRADE FACILITATOR Thread Cutter Tender 05/13/24 Emmie Crain, RN Registered Nurse Infusion Therapy 05/14/24 05/14/24 Brigida Enriquez, RN Registered Nurse Infusion Clinic 05/21/24 05/21/24 Fidel Rainey, RN Registered Nurse Infusion Therapy 05/28/24 05/28/24 Batool Celis MD [address] [place] [address] [place] [address] Radiation Oncologist Radiology-Radiation Oncology 06/08/24 documented as of this encounter
--- OUTSIDE RECORDS SUMMARY | 2025-03-16 09:48 | XMS_ITS | Encounter Summary ---
Author Organization [place] [address] Care Team Providers Care Sow Farm Manager Name Role Phone Chetna Cedeno MD Primary Care Provider [phone] Arlyn Schmidt MD Unavailable [phone] Tacho Echavarria MD Unavailable [phone] Matt Ulrich MD Unavailable [phone] Eze Brock Unavailable Annette Walker FOURCHETTE SEWER Unavailable [phone] Batool Celis MD Unavailable [phone] Encounter Details Date Type Department Care Team (Late st Contact Info) Description 02/04/2025 Social Work [facility] Cancer Care [facility] [place] [address] Annette Walker, FOURCHETTE SEWER Social History Tobacco Use Types Packs/Day Years [...] Recorded In the past 12 months has Insticator, oil, or water [facility] threatened to shut off services in your [...] 07/07/2024 [facility] - [...] in a halfway (including now)? No 11/07/2023 [facility] IP Transportation Answer [...] - 02/04/2025 1:42 PM EDT 02/04/25 1341 Home Appliance Technician Assessment Referred By DT Disease/[place] Site Order Picker Assignment Breast cancer Referral Location: [facility] Reason for Referral DT Identified Needs Adjustment to illness;Education/Information;Mental Health;Transportation Social Work Interventions Education/Information;Brief Couseling/Support;Transportation Distress Screening SW Reviewed Yes On this date, ARACELI Spears, CLOTH MEASURER met with patient in response to receipt of a distress tool submitted on patients behalf. Patient's distress tool rating was 10 and CLOTH MEASURER provided brief counseling/support to Patient. Patient explained she wanting to moved forward with her life but various issues are causing set backs including a recent hospitalization and newly discovered blood clot in her lung. Patient is continuing telehealth therapy with therapist, Jenniffer and although she had initial appointment with [facility] for medication management, she has not follow up with recommended appointment and request to refill medication has been declined. Patient states she had a reaction to the medication prescribed and has been taking medication prescribed by Dr. Echavarria's office for her depression. We discussed need to establish intermediate accountant relationship with therapist/medication management provider for her mental health. CLOTH MEASURER suggested communication with [facility] regarding side effects and possible alternatives. Patient expresses great relief of being out of the [facility] away from unhealthy relationships but has run into some issues with her new housing. She is working closely with [facility] to move to a lower floor and resolve issues including HVAC issues. She received donated air conditioner from [facility] and [facility] has allowed that unit. CLOTH MEASURER provided gas cards to assist Patient with fuel costs associated with long drive to her home. Patient expressed that she is focusing on stabilizing her health, gaining strength, and hopes to engage in a volunteer capacity in her new community soon. No other needs identified at this time. CLOTH MEASURER remains available to support as needed. documented in this encounter Plan of Treatment Upcoming Encounters Date Type Department Care Team (Late st Contact Info) Description 03/18/2025 7:30 AM EDT [place] [address] Adryan Rowan MD [address] [facility] [address] [place] [address] 04/29/2025 9:15 AM EDT Appointment [facility] [place] [address] Batool Celis MD [address] [place] [address] CANCER CARE [place], [place] [phone] 05/19/2025 2:15 PM EST Office Visit [facility] [address] [facility] [address] [place] [address] Sin Tran MD [address] [place] [address] 06/09/2025 12:45 PM EST Procedure visit [facility] [address] [facility] [address] [place], [place] [phone] Samm Ledesma, FINANCING ANALYST [address] [facility] [address] [place], [place] [address] 08/12/2025 10:40 AM EST Appointment [facility] Women's Wellness [facility] [place] [address] Matt Ulrich MD [address] [place] [address] [address] [place], [place] [phone] documented as of this encounter Goals Goal [...] documented as of this encounter Care Teams Sow Farm Manager Relationship Specialty [place] [address] [place] [address] PCP - General 06/21/10 03/08/25 Arlyn Schmidt MD [address] [place] [address] Consulting Physician Internal Medicine-Endocrinology, Diabetes & Metabolism 11/28/20 Tacho Echavarria MD [address] [place] [address] Internal Medicine-Medical Oncology 11/12/23 Matt Ulrich MD 1 [place] [address] Surgery-Surgical Oncology 12/04/23 Eze Brock Pastoral Care 12/13/23 Annette Walker, FOURCHETTE SEWER Order Picker 05/13/24 Batool Celis MD 1 [facility] [address] Radiation Oncologist Radiology-Radiation Oncology 06/08/24 documented as of this encounter
--- OUTSIDE RECORDS SUMMARY | 2025-03-16 09:48 | XMS_ITS | Encounter Summary ---
Author Organization [place] Address One [facility] [place] [facility] [place] [address] Care Team Providers Care Chlorinator Name Role Phone Chetna Cedeno MD Primary Care Provider Arlyn Schmidt MD Unavailable [phone] Tacho Echavarria MD Unavailable Matt Ulrich MD Unavailable Eze Brock Unavailable Cheryl Nair RN Unavailable [phone] Sanam Murray VENEER SORTER Unavailable Unavailable Annette Walker VENEER SORTER Unavailable [phone] Batool Celis MD Unavailable [phone] Ayush Marrero MD Primary Care Provider [phone] Encounter Details Date Type Department Care Team (Late st Contact Info) Description 07/06/2024 Orders Only [facility] One [facility] [place] [address] Shilpa Tan MD [address] [place] [address]- Social History Tobacco Use Types Packs/Day Years [...] 07/07/2024 [facility] - Occupational Stress Questionnaire Answer Date [...] in a fdc (including now)? No 11/07/2023 [facility] IP [...] 07/06/2024 4:32 PM Kayla Lee RN * Vaughn Suicide Severity Rating Scale (Q shift for [...] AM EDT Appointment [facility] [place] [address] Adryan Rowan MD [address] [facility] [address] [place] [address] 04/29/2025 9:15 AM EDT Appointment [facility] [place] [address] Batool Celis MD [address] [place] [address] [place] [address] 05/19/2025 2:15 PM EST Office Visit [address] [place] [address] Sin Tran MD [address] [place] [address] 06/09/2025 12:45 PM EST Procedure visit [facility] [address] [facility] [address] [place] [address] Samm Ledesma, LEYLA [address] [facility] [address] [place] [address] 08/12/2025 10:40 AM EST Appointment [facility] Women's Wellness [facility] [place] [address] Matt Ulrich MD [address] [place] [address] [address] [place] [address] documented as of this encounter Goals Goal [...] EST) 07/06/2024 12:5 1 PM EST Narrative [facility] - 09/24/2024 2:31 PM EDT Requesting Provider: MATT Womack Specimen = [id number] us Shilpa Tan MD PATHOLOGY ORDERABLES Final R esult [facility] 1 [place] [address] documented in this encounter Visit Diagnoses Not on filedocumented in this encounter Additional Health Concerns Infection Onset Date Last Indicated Resolved Time COVID-19 09/04/2024 09/04/2024 09/24/2024 10:1 2 PM EDT Assessment Noted Time PHQ-9 Depression Total Score: 12 024 12:00 PM EDT documented as of this encounter Care Teams Chlorinator Relationship Specialty [place] [address] [place] [address] PCP - General 06/21/10 03/08/25 Ayush Marrero MD [address] [place] [address] PCP - General Family Medicine 03/09/25 Arlyn Schmidt MD [address] [place] [address] Consulting Physician Internal Medicine-Endocrinology , Diabetes & Metabolism 11/28/20 Tacho Echavarria MD 1 [place], [place] [phone] Internal Medicine-Medical Oncology 11/12/23 Matt Ulrich MD 1 [place] [address] Surgery-Surgical Oncology 12/04/23 Eze Brock Pastoral Care 12/13/23 Cheryl Nair, RN Oncology Nurse Navigator 03/25/2412/13 Sanam Murray MSW Stapler Coil Unit 04/10/24 07/30/24 Annette Walker MSW Stapler Coil Unit 05/13/24 Batool Celis MD 1 [facility] [place] [address] Radiation Oncologist Radiology-Radiation Oncology 06/08/24 documented as of this encounter
--- OUTSIDE RECORDS SUMMARY | 2025-03-16 09:48 | XMS_ITS | Encounter Summary ---
Author [place] [address] Care Team Providers Care Boiler Repair Supervisor Name Role Phone Chetna Cedeno MD Primary Care Provider [phone] Arlyn Schmidt MD Unavailable [phone] Tacho Echavarria MD Unavailable [phone] Matt Ulrich MD Unavailable [phone] Eze Brock Unavailable Annette Walker Unavailable [phone] Batool Celis MD Unavailable [phone] Reason for Visit * Reason Onset Date Comments Other 02/05/2025 BW Encounter Details Date Type Department Care Team (Late st Contact Info) Description 02/05/2025 Telephone [facility]P [place] [address] [place] [address] [place] [address] [place] [address] Other (BW) Social History Tobacco Use [...] health care facility (including now)? No 11/07/2023 [facility] IP Transportation Answer D [...] tabs for her to take to [facility] [place] * Telephone Encounter - Destiny Alejandre CCMA [...] Info) Description 03/18/2025 7:30 AM EDT Appointment [facility] [place] [address] Adryan Rowan MD [address] [place] [address] [address] [place] [address] 04/29/2025 9:15 AM EDT Appointment [facility] [address] Batool Celis MD [address] [facility] [place] [address] 05/19/2025 2:15 PM EST Office Visit [facility] [address] [facility] [address] [place] [address] Sin Tran MD [address] [place] [address] 06/09/2025 12:45 PM EST Procedure visit [facility] [address] [facility] [address] [place] [address] Samm Ldeesma APRN [address] [facility] [address] [place] [address] 08/12/2025 10:40 AM EST Appointment [facility] Women's Wellness [place] [facility] [place] [address] Matt Ulrich MD 20 [facility] [address] [place] [address] documented as of this encounter Goals Goal [...] documented as of this encounter Care Teams Boiler Repair Supervisor Relationship Specialty [place] [address] [place] [phone] PCP - General 06/21/10 03/08/25 Arlyn Schmidt MD [facility] [address] [place], [place] [id number] Consulting Physician Internal Medicine-Endocrinology, Diabetes & Metabolism 11/28/20 Tacho Echavarria MD [address] [place] [address] Internal Medicine-Medical Oncology 11/12/23 Matt Ulrich MD [address] [place] [address] Surgery-Surgical Oncology 12/04/23 Eze Brock Pastoral Care 12/13/23 Annette Walker MSW Bilingual Trainer 05/13/24 Batool Celis MD [address] [place] [address] [place] [address] Radiation Oncologist Radiology-Radiation Oncology 06/08/24 documented as of this encounter
--- OUTSIDE RECORDS SUMMARY | 2025-03-16 09:48 | XMS_ITS | Encounter Summary ---
Author Organization [place] [address] Care Team Providers Care Automobile Damage Appraiser Name Role Phone Chetna Cedeno MD Primary Care Provider [phone] Leslie Cooley MULTIMEDIA ARTIST Unavailable UnaBatool Talley MILL TENDER WASHING Unavailable Unavailab Arlyn Disla MD Unavailable [phone] Cheryl Nair RN Unavailable [phone] Tacho Echavarria MD Unavailable [phone] Matt Ulrich MD Unavailable [phone] Hilary Clemens RN Unavailable Unavaila Eze Caro Unavailable Shila Albrecht RN Unavailable Unavail able Cheyanne To RN Unavailable UnavailRayna Johnson RN Unavailable Unavailab Shilpa Olivarez RN Unavailable [phone] Tulio Duong RN Unavailable Unavailable Yaquelin Weaver RN Unavailable Unavailable Pam Wang RN Unavailable Unavailable Jazmín Nair RN Unavailable Unavailable Fidel Rainey RN Unavailable Unavailable Cheryl Nair RN Unavailable [phone] Ophelia Lala RN Unavailable Glo Lee RN Unavailable Unavailab Sanam Evans OVERHEAD CRANE OPERATOR Unavailable Unavailable Hilary Clemens RN Unavailable Unavaila Ruthy Clayton RN Unavailable Unavailable Rayna Partida RN Unavailable Unavailab Artur Nelson RN Unavailable Unavailable Annette Walker OVERHEAD CRANE OPERATOR Unavailable [phone] Emmie Crain RN Unavailable Unavailable Brigida Enriquez RN Unavailable Unavailable Fidel Rainey RN Unavailable Unavailable Batool Celis MD Unavailable [phone] Ayush Marrero MD Primary Care Provider [phone] Encounter Details Date Type Department Care Team (Late st Contact Info) Description 07/12/2015 Orders Only SEP [facility] [address] [facility] [address] [place] [address] Stone Cronin MD Social History [...] EDT Appointment [facility] [place] [address] Adryan Rowan MD [address] [place] [address] [address] [place] [address] 04/29/2025 9:15 AM EDT Appointment [place] [address] Batool Celis MD [address] [place] [address] CAN[place] [address] 05/19/2025 2:15 PM EST Office Visit [address] [address] Sin Tran MD [address] [place] [address] 06/09/2025 12:45 PM EST Procedure visit [facility] [address] [place], [place] [phone] Jamielorna Samm Santana STOVE CARRIAGE OPERATOR [address] [facility] [address] [place], [place] [address] 08/12/2025 10:40 AM EST Appointment [facility] Women's Wellness [place] One [facility] [place] [address] Matt Ulrich MD [address] [place] [address] [address] [place], [place] [address] documented as of this encounter Procedures Procedure Name Priority Date/Time Associated Diagnosis Comments ED COLONOSCOPY Routine 07/12/2015 2:30 PM EST documented in this encounter Results * ED COLONOSCOPY (07/12/2015 2:30 PM EST) 07/12/2015 2:30 PM EST Impressions [facility] - 07/12/2015 3:30 PM EST Normal [...] MD GI PROCEDURE ORDERABLES Doris [email or web address] Result [facility] 1 [place] [address] documented in this encounter Visit Diagnoses Not [...] documented as of this encounter Care Teams Automobile Damage Appraiser Relationship Specialty [place] [address] [place] [address] PCP - General 06/21/10 03/08/25 Ayush Marrero MD [address] [place] [address] PCP - General Family Medicine 03/09/25 Leslie Cooley, MULTIMEDIA ARTIST American Sign Language Interpreter 01/28/19 07/15/19 Batool Myers, MILL TENDER WASHING American Sign Language Interpreter 02/13/19 07/15/19 Arlyn Schmidt MD [address] [place] [address] Consulting Physician Internal Medicine-Endocrinolog y, Diabetes & Metabolism 11/28/20 Cheryl Nair, RN Oncology Nurse Navigator 10/29/2302/05 Tacho Echavarria MD 1 [place] [address] Internal Medicine-Medical Oncology 11/12/23 Matt Ulrich MD [address] [place] [address] Surgery-Surgical Oncology 12/04/23 Hilary Clemens, RN [...] Nurse Infusion Therapy 04/03/24 04/03/24 Sanam Murray, [facility] American Sign Language Interpreter 04/10/24 07/30/24 Hilary Clemens, RN Registered Nurse Infusion Therapy 04/21/24 04/21/24 Ruthy Walker RN Registered Nurse Infusion Therapy 04/24/24 04/24/24 Rayna Partida, RN Registered Nurse Infusion Clinic 05/01/24 05/01/24 Artur Roberts, RN Registered Nurse Infusion Therapy 05/07/24 05/07/24 Annette Walker, [facility] American Sign Language Interpreter 05/13/24 Emmie Crain, RN Registered Nurse Infusion Therapy 05/14/24 05/14/24 Brigida Enriquez, RN Registered Nurse Infusion Clinic 05/21/24 05/21/24 Fidel Rainey, RN Registered Nurse Infusion Therapy 05/28/24 05/28/24 Batool Celis MD [address] [place] [address] [place] [address] Radiation Oncologist Radiology-Radiation Oncology 06/08/24 documented as of this encounter
--- OUTSIDE RECORDS SUMMARY | 2025-03-16 09:48 | XMS_ITS | Encounter Summary ---
Author Organization [place] [address] Care Team Providers Care District Home Economics Agent Name Role Phone Kit Cedeno MD Primary Care Provider [phone] Arlyn Schmidt MD Unavailable [phone] Cheryl Nair RN Unavailable [phone] Tacho Echavarria MD Unavailable [phone] Matt Ulrich MD Unavailable [phone] Hilary Clemens RN Unavailable Unavaila Eze Caro Unavailable Shila Albrecht RN Unavailable Unavail able Cheyanne To RN Unavailable Unavailabl Rayna Wong RN Unavailable Unavailab Shilpa Olivarez RN Unavailable [phone] Tulio Duong RN Unavailable Unavailable Yaquelin Weaver RN Unavailable Unavailable Pam Wang RN Unavailable Unavailable Jazmín Nair RN Unavailable Unavailable Fidel Rainey RN Unavailable Unavailable Cheryl Nair RN Unavailable [phone] Ophelia Lala RN Unavailable Glo Lee RN Unavailable Unavailab Sanam Evans SCIENTIFIC ILLUSTRATOR Unavailable Unavailable Hilary Clemens RN Unavailable Unavaila Ruthy Clayton RN Unavailable Unavailable Rayna Partida RN Unavailable Unavailab Artur Nelson RN Unavailable Unavailable Annette Walker SCIENTIFIC ILLUSTRATOR Unavailable Emmie Crain RN Unavailable Unavailable Brigida Enriquez RN Unavailable Unavailable Fidel Rainey RN Unavailable Unavailable Batool Celis MD Unavailable [phone] Ayush Marrero MD Primary Care Provider [phone] Encounter Details Date Type Department Care Team (Late st Contact Info) Description 10/25/2023 Orders Only [facility] One [facility] [place] [address] Diane Ellis MD 1 [place] [address] Social History Tobacco Use Types [...] AM EDT Appointment [facility] One [place] [phone] Adryan Rowan MD [address] [place] [address] [address] [place] [address] 04/29/2025 9:15 AM EDT Appointment [place] [address] Batool Celis MD 1 [facility] [place] [address] 05/19/2025 2:15 PM EST [facility] [address] [place] [address] Sin Tran MD [address] [place] [address] 06/09/2025 12:45 PM EST Procedure visit [facility] [address] [facility] [address] [place], [place] [phone] Samm Ledesma, OFFENDER EMPLOYMENT SPECIALIST [address] [place] [address] 08/12/2025 10:40 AM EST Appointment [facility] Women's Wellness [facility] [place] [address] Matt Ulrich MD [address] [place] [address] 254 [place] [address] documented as of this encounter Goals Goal [...] EDT) 10/25/2023 10:4 4 AM EDT Narrative [facility] - 11/01/2023 3:02 PM EDT Requesting Provider: KIT Womack Specimen = [id number] us Diane Ellis MD PATHOLOGY ORDERABLES Final Resul t [facility] 1 [place] [address] documented in this encounter Visit Diagnoses Not on filedocumented in this encounter Additional Health Concerns Infection Onset Date Last Indicated Resolved Time COVID-19 09/04/2024 09/04/2024 09/24/2024 10:1 2 PM EDT documented as of this encounter Care Teams District Home Economics Agent Relationship Specialty [place] [address] [place] [address] PCP - General 06/21/10 03/08/25 Ayush Marrero MD [address] [place] [address] PCP - General Family Medicine 03/09/25 Arlyn Schmidt MD [address] [place] [address] Consulting Physician Internal Medicine-Endocrinolog y, Diabetes & Metabolism 11/28/20 Cheryl Nair, RN Oncology Nurse Navigator 10/29/2302/05 Tacho Echavarria MD 1 [place] [address] Internal Medicine-Medical Oncology 11/12/23 Matt Ulrich MD 1 [place] [address] Surgery-Surgical Oncology 12/04/23 Hilary Clemens, RN Registered [...] 04/03/24 04/03/24 Sanam Murray, [facility] Hand Button Splitter 04/10/24 07/30/24 Hilary Clemens, RN Registered Nurse Infusion Therapy 04/21/24 04/21/24 Ruthy Walker RN Registered Nurse Infusion Therapy 04/24/24 04/24/24 Rayna Partida, RN Registered Nurse Infusion Clinic 05/01/24 05/01/24 Artur Roberts RN Registered Nurse Infusion Therapy 05/07/24 05/07/24 Annette Walker, [facility] Hand Button Splitter 05/13/24 Emmie Crain, RN Registered Nurse Infusion Therapy 05/14/24 05/14/24 Brigida Enriquez, RN Registered Nurse Infusion Clinic 05/21/24 05/21/24 Fidel Rainey, RN Registered Nurse Infusion Therapy 05/28/24 05/28/24 Batool Celis MD [address] [place] [address] [place] [address] Radiation Oncologist Radiology-Radiation Oncology 06/08/24 documented as of this encounter
--- OUTSIDE RECORDS SUMMARY | 2025-03-16 09:48 | XMS_ITS | Encounter Summary ---
Author Organization [place] [address] Care Team Providers Care Panelboard Assembler Name Role Phone Chetna Cedeno MD Primary Care Provider [phone] Arlyn Schmidt MD Unavailable [phone] Tacho Echavarria MD Unavailable [phone] Matt Ulrich MD Unavailable [phone] Eze Brock Unavailable Annette Walker Unavailable [phone] Batool Celis MD Unavailable [phone] Reason for Visit * Reason Onset Date Comments Follow-up 02/12/2025 Updated form, lo an deferment form Encounter Details Date Type Department Care Team (Late st Contact Info) Description 02/12/2025 Telephone [facility] Medical Oncology [place], [place] [phone] Eze Rowland MD [address] [place] [address] [id number] Follow-up (Updated form, loan deferment form ) [...] Recorded PHQ-2 Total Score 5 07/07/2024 [facility] [place] of Occupat ional Health - Occupational Stress [...] in a chcf (including now)? No 11/07/2023 [facility] IP Transportation Answer [...] to fill out for loan deferment via [employer] message. documented in this encounter Plan of Treatment Upcoming Encounters Date Type Department Care Team (Late st Contact Info) Description 03/18/2025 7:30 AM EDT Appointment [facility] [place] [address] Adryan Rowan MD [address] [place] [address] [address] [place] [address] 04/29/2025 9:15 AM EDT Appointment [facility] [place], [place] [phone] Batool Celis MD 1 [facility] [place] [address] 05/19/2025 2:15 PM EST Office Visit [facility] [address] [place] [address] Sin Tran MD [address] [place] [address] 06/09/2025 12:45 PM EST Procedure visit [facility] [address] [facility] [address] [place] [address] Samm Ledesma APRN [address] [facility] [address] [place] [address] 08/12/2025 10:40 AM EST Appointment [facility] Women's Wellness [facility] [address] Carb[address]al [facility] Matt Ulrich MD [address] [place] [address] 254 [place] [address] documented as of this encounter Goals Goal [...] for any unusual or concerning findings. Breast [facility] Breast Health On [...] documented as of this encounter Care Teams Panelboard Assembler Relationship Specialty [place] [address] [place] [phone] PCP - General 06/21/10 03/08/25 Arlyn Schmidt MD [address] [place], [place] 38[address] Consulting Physician Internal Medicine-Endocrinology, Diabetes & Metabolism 11/28/20 Tacho Echavarria MD 1 [place] [address] Internal Medicine-Medical Oncology 11/12/23 Matt Ulrich MD 1 [place], [place] [address] Surgery-Surgical Oncology 12/04/23 Eze Brock Pastoral Care 12/13/23 Annette Walker, ARACELI Knit Tubing Dyer 05/13/24 Batool Celis MD 1 [facility] [address] Radiation Oncologist Radiology-Radiation Oncology 06/08/24 documented as of this encounter
--- OUTSIDE RECORDS SUMMARY | 2025-03-16 09:48 | XMS_ITS | Encounter Summary ---
Author Organization [place] [address] Care Team Providers Care Trial Justice Name Role Phone Chetna Cedeno MD Primary Care Provider [phone] Arlyn Schmidt MD Unavailable [phone] Tacho Echavarria MD Unavailable [phone] Matt Ulrich MD Unavailable [phone] Eze Brock Unavailable Annette Walker Unavailable [phone] Batool Celis MD Unavailable [phone] Encounter Details Date Type Department Care Team (Late st Contact Info) Description 02/15/2025 Telephone [facility] Medical Oncology [place], [place] [phone] Tacho Echavarria MD [address] [place] [phone] Social History Tobacco Use Types Packs/Day Years [...] from your doctor or pharmacy? Never 11/07/2023 [facility] Utilities Answer Date Recorded In the [...] Score 5 07/07/2024 [facility] [place] of Occupat ional Health - Occupational Stress [...] in a jail (including now)? No 11/07/2023 [facility] IP Transportation Answer D [...] air conditioning unit will be at the bookkeeper receptionist desk on the second floor. Copy also placed in scan pile documented in this encounter Plan of Treatment Upcoming Encounters Date Type Department Care Team (Late st Contact Info) Description 03/18/2025 7:30 AM EDT Appointment [facility] [place] [address] Adryan Rowan MD [address] [facility] [address] [place] [address] 04/29/2025 9:15 AM EDT Appointment [facility] [place] [phone] Batool Celis MD 1 [facility] [place] [address] 05/19/2025 2:15 PM EST Office Visit [facility] Spine Center [place] [address] [facility] [address] [place] [address] Sin Tran MD [address]00 [place] [address] 06/09/2025 12:45 PM EST Procedure visit [facility] [address] [facility] [address] [place] [id number] Samm Ledesma LABOR CONTRACTOR [address] [facility] [address] [place] [address] 08/12/2025 10:40 AM EST Appointment [facility] Women's Wellness [facility] [place] [phone] Matt Ulrich MD [address] [place] [address] MUSA Zari [facility] [place] [address] documented as of this encounter Goals Goal [...] documented as of this encounter Care Teams Trial Justice Relationship Specialty [place] [address] [place] [address] PCP - General 06/21/10 03/08/25 Arlyn Schmidt MD [address] [place], [place] 2667[address] Consulting Physician Internal Medicine-Endocrinology, Diabetes & Metabolism 11/28/20 Tacho Echavarria MD 1 [place], [place] 05[address]17 Internal Medicine-Medical Oncology 11/12/23 Matt Ulrich MD 1 [place], [place] [address]17 Surgery-Surgical Oncology 12/04/23 Eze Brock Pastoral Care 12/13/23 Annette Walker, CORPORATE OFFICER Motor Tune Up Specialist 05/13/24 Batool Celis MD 1 [facility] CANCER [place], [place] [address] Radiation Oncologist Radiology-Radiation Oncology 06/08/24 documented as of this encounter
--- OUTSIDE RECORDS SUMMARY | 2025-03-16 09:48 | XMS_ITS | Encounter Summary ---
Author Organization [place] [address] Care Team Providers Care Emt I/99 Name Role Phone Chetna Cedeno MD Primary Care Provider [phone] Arlyn Schmidt MD Unavailable [phone] Tacho Echavarria MD Unavailable [phone] Matt Ulrich MD Unavailable [phone] Eze Brock Unavailable Annette Walker Unavailable [phone] Batool Celis MD Unavailable [phone] Reason for Visit * Reason Onset Date Comments Other 02/01/2025 Currently inpati ent at [facility] Encounter Details Date Type Department Care Team (Late st Contact Info) Description 02/01/2025 Telephone [facility] Medical Oncology [place], [place] [phone] Tacho Echavarria MD [address] [place] [address] [phone] Other (Currently inpatient at [facility] ) Social History Tobacco Use Types [...] in a usp (including now)? No 11/07/2023 [facility] [...] to let know she was admitted to [facility] on Saturday and is still there.Has blood clot in lung and potassium was 2.5 Preferred call back number: [phone] documented in this encounter Plan of Treatment Upcoming Encounters Date Type Department Care Team (Late st Contact Info) Description 03/18/2025 7:30 AM EDT Appointment [place] [address] Adryan Rowan MD [address] [place] [address] [address] [place] [address] 04/29/2025 9:15 AM EDT Appointment [place] [address] Batool Celis MD [address] [place] [address] [place] [address] 05/19/2025 2:15 PM EST Office Visit [facility] Spine Center [place] [address] [facility] [address] [place] [address] Sin Tran MD [address] [place] [address] 06/09/2025 12:45 PM EST Procedure visit [facility] [address] [facility] [address] [place] [phone] Samm Ledesma, PLANT UTILITIES ENGINEER [address] [place] [address] 08/12/2025 10:40 AM EST Appointment [facility] Women's Wellness [facility] [address] Matt Ulrich MD [address] [place] [address] [address] [place] [address] documented as of this encounter Goals Goal Patient Goal Type Associated Problems Recent Progress Patient-Stated? Author Blood Pressure < 140/90 Blood Pressure 121/77(02/04 2:04 PM EDT) No Chetna Cedeno MD [facility] Breast Health On track(2024 11:27 [...] documented as of this encounter Care Teams Emt I/99 Relationship Specialty [place] [address] [place] [address] PCP - General 06/21/10 03/08/25 Arlyn Schmidt MD [address] [place], [place] [phone] Consulting Physician Internal Medicine-Endocrinology, Diabetes & Metabolism 11/28/20 Tacho Echavarria MD 1 [place], [place] [phone] Internal Medicine-Medical Oncology 11/12/23 Matt Ulrich MD 1 [place], [place] 40[address] Surgery-Surgical Oncology 12/04/23 Eze Brock Pastoral Care 12/13/23 Annette Walker, ARACELI Review Engineer 05/13/24 Batool Celis MD 1 [place] [address] Radiation Oncologist Radiology-Radiation Oncology 06/08/24 documented as of this encounter
--- OUTSIDE RECORDS SUMMARY | 2025-03-16 09:48 | XMS_ITS | Encounter Summary ---
Author Organization [place] [address] Care Team Providers Care Boot And Saddle Repair Person Name Role Phone Chetna Cedeno MD Primary Care Provider [phone] Arlyn Schmidt MD Unavailable [phone] Tacho Echavarria MD Unavailable [phone] Matt Ulrich MD Unavailable [phone] Eze Brock Unavailable Annette Walker Unavailable [phone] Batool Celis MD Unavailable [phone] Reason for Visit * Reason Comments Pharmacy [facility] Encounter Details Date Type Department Care Team (Latest Contact Info) Description 02/02/2025 Specialty Pharmacy [facility] [address] [place] [address] Kevin Chacon PharmD Pharmacy Migraine Medication [facility]) Social History Tobacco Use Types [...] th e electric, gas, oil, or water [email or web address] threatened to shut off services in your [...] Score 5 07/07/2024 [facility] [place] of Occupat ional Health - Occupational Stress [...] in a prison (including now)? No 11/07/2023 [facility] IP Transportation Answer [...] Chacon PharmD - 02/02/2025 1:39 PM EDT [facility] Prescription received for Nurtec (75mg). Prescription requires prior authorization. Will complete clinical review. Patient will not need IA if able to fill here (continuation of therapy). * Kevin Chacon PharmD - 02/02/2025 1:39 PM EDT [facility] - Migraine Clinical Review [place] [...] into the lungs daily. fluticasone propionate 1 [place] by Nasal route daily. Aerochamber MV 1 Each by Replaced By [facility]Non-Drug; Combo Route) route as needed. ketorolac Take [...] Monson CPhT - 02/02/2025 1:39 PM EDT [facility] Prior Authorization Submitted [facility] to [employer] insurance via [employer] ([employer] [id number]). Will follow up on 02/04. * Annamarie Mark CPhT - 02/02/2025 1:39 PM EDT [facility] Prior Authorization Determination Received notice of PA approval for [facility] . PA approved from 02/02/2025 to 05/05/2025. Patient is able to fill at [facility]. Copay is $0. No answer, left voicemail to call [phone], option 4. Initial assessment not needed for [...] Description 03/18/2025 7:30 AM EDT Appointment [facility] [place] [address] Adryan Rowan MD [address] [facility] [address] [place] [id number] 04/29/2025 9:15 AM EDT Appointment [facility] [place], [place] [id number] Batool Celis MD 1 [facility] [place] [address] 05/19/2025 2:15 PM EST Office Visit [facility] [place] [address] [facility] [address] [place] [address] Sin Tran MD [address] [place] [address] 06/09/2025 12:45 PM EST Procedure visit [facility] [address] [facility] [address] [place] [address] Samm Ledesma, CHILD NUTRITION DIRECTOR [address] [facility] [address] [place] [address] 08/12/2025 10:40 AM EST Appointment [facility] Women's Wellness [place] [address] [facility] [place] [address] Matt Ulrich MD [address] [place] [address] [place] [address] documented as of this encounter Goals Goal [...] documented as of this encounter Care Teams Boot And Saddle Repair Person Relationship Specialty [place] [address] [place] [address] PCP - General 06/21/10 03/08/25 Arlyn Schmidt MD [address] [place] [address] Consulting Physician Internal Medicine-Endocrinology, Diabetes & Metabolism 11/28/20 Tacho Echavarria MD 1 [place] [id number] Internal Medicine-Medical Oncology 11/12/23 Matt Ulrich MD 1 [place] [address]54[address] Surgery-Surgical Oncology 12/04/23 Eze Brock Pastoral Care 12/13/23 Annette Walker, ARACELI Legal Recovery Specialist 05/13/24 Batool Celis MD 1 [facility] [place] [address] Radiation Oncologist Radiology-Radiation Oncology 06/08/24 documented as of this encounter
--- OUTSIDE RECORDS SUMMARY | 2025-03-16 09:48 | XMS_ITS | Encounter Summary ---
Author Organization [place] [address] Care Team Providers Care Blindmaker Name Role Phone Chetna Cedeno MD Primary Care Provider [phone] Arlyn Schmidt MD Unavailable [phone] Tacho Echavarria MD Unavailable [phone] Matt Ulrich MD Unavailable [phone] Eze Brock Unavailable Annette Walker Unavailable [phone] Batool Celis MD Unavailable [phone] Reason for Visit * Reason Comments Pharmacy Oncology Management Abemaciclib Encounter Details Date Type Department Care Team (Latest Contact Info) Description 02/03/2025 Specialty Pharmacy [facility] [address] [place] [address] Anisa Lozoya CPhT Pharmacy Oncology [...] th e electric, gas, oil, or water [employer] threatened to shut off services in your [...] Score 5 07/07/2024 [facility] [place] of Occupat ional Health - Occupational Stress [...] care home (including now)? No 11/07/2023 [facility] IP Transportation Answer [...] she is being discharged tomorrow and will supervisor opening and picking all her meds. She is unsure of supply left. * Blake Antoine RPH - 02/03/2025 11:05 AM EDT [facility] - Care Plan and Refill Review Refill questions and refill history verified. Last assessment 12/25/24. No reassessment needed at this time. Blake Antoine PharmD Specialty Pharmacist documented in this encounter Plan of Treatment Upcoming Encounters Date Type Department Care Team (Late st Contact Info) Description 03/18/2025 7:30 AM EDT Appointment [facility] [place] [address] Adryan Rowan MD [address] [place] [address] [address] [place] [address] 04/29/2025 9:15 AM EDT Appointment [place] [address] Batool Celis MD 1 [facility] [place] [address] 05/19/2025 2:15 PM EST Office Visit [facility] [address] [facility] [address] [place] [address] Sin Tran MD [address] [place] [address] 06/09/2025 12:45 PM EST Procedure visit [facility] [address] [facility] [address] [place] [address] Samm Ledesma APRN [address] [facility] [facility] [address] [place] [address] 08/12/2025 10:40 AM EST Appointment [facility] Women's Wellness [place] [facility] [place] [address] Matt Ulrich MD [address] [facility] [address] [place] [address] documented as of this encounter Goals Goal [...] documented as of this encounter Care Teams Blindmaker Relationship Specialty [place] [address] [place] [address] PCP - General 06/21/10 03/08/25 Arlyn [place] MD [facility] [place], [place] [address] Consulting Physician Internal Medicine-Endocrinology, Diabetes & Metabolism 11/28/20 Tacho Echavarria MD 1 [place], [place] [address] Internal Medicine-Medical Oncology 11/12/23 Matt Ulrich MD 1 [place] [address] Surgery-Surgical Oncology 12/04/23 Eze Brock Pastoral Care 12/13/23 Annette Walker MSW Director Hair 05/13/24 Batool Celis MD 1 [facility] [place] [address] Radiation Oncologist Radiology-Radiation Oncology 06/08/24 documented as of this encounter
--- OUTSIDE RECORDS SUMMARY | 2025-03-16 09:48 | XMS_ITS | Encounter Summary ---
Author Organization [place] [address] Care Team Providers Care Housing Assistant Property Manager Name Role Phone Chetna Cedeno MD Primary Care Provider [phone] Arlyn Schmidt MD Unavailable [phone] Tacho Echavarria MD Unavailable [phone] Matt Ulrich MD Unavailable [phone] Eze Brock Unavailable Cheryl Nair RN Unavailable [phone] Annette Walker PHARMACY ANALYST Unavailable [phone] Batool Celis MD Unavailable [phone] Ayush Marrero MD Primary Care Provider [phone] Encounter Details Date Type Department Care Team (Late st Contact Info) Description 10/27/2024 Orders Only [facility] Physical Therapy [place] [address] [place] [address] [address] [place] [address] Shaunna Workman PT Social History [...] in a detention (including now)? No 11/07/2023 [facility] IP Transportation Answer D [...] EDT Appointment [facility] [place] [address] Adryan Rowan MD [address] [facility] [address] [place] [address] 04/29/2025 9:15 AM EDT Appointment [facility] [place], [place] 907[address]17 Batool Celis MD 1 [facility] [place], [place] [address] 05/19/2025 2:15 PM EST Office Visit [facility] [address] [facility] [address] [place] [address] Sin Tran MD 4900 [place] [address] 06/09/2025 12:45 PM EST Procedure visit [facility] [address] [facility] [address] [place] [address] Samm Ledesma, HORSE TREKKING GUIDE [address] [facility] [address] [place] [address] 08/12/2025 10:40 AM EST Appointment [facility] Women's Wellness [place] [address] [facility] [address] [place] [address] Matt Ulrich MD [address] [place] [address] [place] [address] documented as of this encounter Goals Goal [...] documented as of this encounter Care Teams Housing Assistant Property Manager Relationship Specialty [place] [address] [place] [address] PCP - General 06/21/10 03/08/25 Ayush Marrero MD [address] [place] [address] PCP - General Family Medicine 03/09/25 Arlyn [place] MD [address] [place] [address] Consulting Physician Internal Medicine-Endocrinology , Diabetes & Metabolism 11/28/20 Tacho Echavarria MD 1 [place] [address] Internal Medicine-Medical Oncology 11/12/23 Matt Ulrich MD 1 [place] [id number] Surgery-Surgical Oncology 12/04/23 Eze Brock Pastoral Care 12/13/23 Cheryl Nair, RN Oncology Nurse Navigator 03/25/2412/13 Annette Walker, PHARMACY ANALYST Channel Manager 05/13/24 Batool Celis MD 1 [facility] [place] [address] Radiation Oncologist Radiology-Radiation Oncology 06/08/24 documented as of this encounter
--- OUTSIDE RECORDS SUMMARY | 2025-03-16 09:48 | XMS_ITS | Encounter Summary ---
Author Organization [place] [address] Care Team Providers Care Ice Cream Machine Operator Name Role Phone Chetna Cedeno MD Primary Care Provider [phone] Arlyn Schmidt MD Unavailable [phone] Tacho Echavarria MD Unavailable [phone] Matt Ulrich MD Unavailable [phone] Eze Brock Unavailable Annette Walker EMERGENCY RESPONSE OFFICER Unavailable [phone] Batool Celis MD Unavailable [phone] Ayush Marrero MD Primary Care Provider [phone] Reason for Visit * Reason Comments Pharmacy Oncology Management Abemaciclib Encounter Details Date Type Department Care Team (Latest Contact Info) Description 02/25/2025 Specialty Pharmacy [facility] [address] [place] [address] Annette Renee CPhT Pharmacy Oncology [...] in a fdc (including now)? No 11/07/2023 [facility] IP Transportation Answer D [...] Stover RP - 02/25/2025 10:28 AM EDT [place] [facility] - Care Plan and Refill Review Refill questions and refill history verified. Last assessment 12/25/24. No reassessment needed at this time. Medhat Stover RPH Specialty Pharmacist documented in this encounter Plan of Treatment Upcoming Encounters Date Type Department Care Team (Late st Contact Info) Description 03/18/2025 7:30 AM EDT Appointment [facility] [address] [place], [place] [address] Adryan Rowan MD [address] [place] [address] 04/29/2025 9:15 AM EDT Appointment [facility] [place] [address] Batool Celis MD [address] [place] [address] CANCER CARE CENTER [place] [id number] 05/19/2025 2:15 PM EST Office Visit [facility] [address] [facility] [address] [place] [address] Sin Tran MD 4900 [place] [address] 06/09/2025 12:45 PM EST Procedure visit [facility] [address] [facility] [address] [place] [address] Samm Ledesma APRN [address] [facility] [address] [place] [address] 08/12/2025 10:40 AM EST Appointment [facility] Women's Wellness [facility] [place] [address] Matt Ulrich MD [address] [facility] [address] [place], [place] [address] documented as of this encounter Goals Goal Patient Goal Type Associated Problems Recent Progress Patient-Stated? Author Blood Pressure < 140/90 Blood Pressure 121/77(02/04 2:04 PM EDT) No Chetna Cedeno MD Breast [facility] Breast Health On track(2024 11:27 AM [...] as of this encounter Care Teams Ice Cream Machine Operator Relationship Specialty [place] [address] [facility] [place] [address] PCP - General 06/21/10 03/08/25 Ayush Marrero MD [address] [place] [address] PCP - General Family Medicine 03/09/25 Arlyn Schmidt MD [address] [place] [address] Consulting Physician Internal Medicine-Endocrinology, Diabetes & Metabolism 11/28/20 Tacho Echavarria MD 1 [place] [address] Internal Medicine-Medical Oncology 11/12/23 Matt Ulrich MD 1 [place] [address] Surgery-Surgical Oncology 12/04/23 Eze Brock Pastoral Care 12/13/23 Annette Walker, EMERGENCY RESPONSE OFFICER Pipe Smoker Machine Operator 05/13/24 Batool Celis MD 1 [facility] [place] [address] Radiation Oncologist Radiology-Radiation Oncology 06/08/24 documented as of this encounter
--- OUTSIDE RECORDS SUMMARY | 2025-03-16 09:48 | XMS_ITS | Encounter Summary ---
Author [place] [address] Care Team Providers Care Mainspring Winder And Oiler Name Role Phone Chetna Cedeno MD Primary Care Provider [phone] Arlyn Schmidt MD Unavailable [phone] Tacho Echavarria MD Unavailable [phone] Matt Ulrich MD Unavailable [phone] Eze Brock Unavailable Annette Walker Unavailable [phone] Batool Celis MD Unavailable [phone] Reason for Visit * Reason Comments Pharmacy Migraine Medication Management Qulipta/Nurtec Encounter Details Date Type Department Care Team (Latest Contact Info) Description 02/26/2025 Specialty Pharmacy [facility] [address] [place] [address] Charlotte Martino CPhT Pharmacy Migraine [...] Date Recorded PHQ-2 Total Score 5 07/07/2024 [facility] of Occupat ional Health - Occupational Stress [...] in a fpc (including now)? No 11/07/2023 [facility] IP [...] refills of Qulipta/Nurtec. Copay amount: $0 Sent 800APP message. Patient informed of copay. * Annamarie [...] up on 03/09. Copay amount: $0 Sent 800APP message. Patient informed of copay. * Anisa Lozoya CPhT - 02/26/2025 11:29 AM EDT [facility] will now pick up attendant 03/10 with verzenio documented in this encounter Plan of Treatment Upcoming Encounters Date Type Department Care Team (Late st Contact Info) Description 03/18/2025 7:30 AM EDT Appointment [facility] [place] [address] Adryan Rowan MD [address] [facility] [address] [place] [address] 04/29/2025 9:15 AM EDT Appointment [facility] ONC [place], [place] [address] Batool Celis MD [address] [place] [address] [place] [address] 05/19/2025 2:15 PM EST Office Visit [facility] [address] [facility] [address] [place] [address] Sin Tran MD [address] [place] [address] 06/09/2025 12:45 PM EST Procedure visit [facility] [address] [facility] [address] [place] [address] Samm Ledesma APRN [address] [facility] [address] [place] [address] 08/12/2025 10:40 AM EST Appointment [facility] Women's Wellness [facility] [place] [address] Matt Ulrich MD [address] [facility] [facility] [address] [place] [address] documented as of this encounter Goals Goal [...] or concerns. Breast [facility] Breast Health Not on track(2024 11:27 [...] documented as of this encounter Care Teams Mainspring Winder And Oiler Relationship Specialty [place] [address] [place] [address] PCP - General 06/21/10 03/08/25 Arlyn Schmidt MD [address] [place], [place] [address] Consulting Physician Internal Medicine-Endocrinology, Diabetes & Metabolism 11/28/20 Tacho Echavarria MD 1 [place], [place] [address] Internal Medicine-Medical Oncology 11/12/23 Matt Ulrich MD 1 [place], [place] [address] Surgery-Surgical Oncology 12/04/23 Eze Brock Pastoral Care 12/13/23 Annette Walker, CARTOGRAPHY/MAPPING TECHNICIAN Ordering Box Operator 05/13/24 Batool Celis MD 1 [facility] [place] [address] Radiation Oncologist Radiology-Radiation Oncology 06/08/24 documented as of this encounter
--- OUTSIDE RECORDS SUMMARY | 2025-03-16 09:48 | XMS_ITS | Encounter Summary ---
Author Organization [place] [address] Care Team Providers Care Fractionation Plant Supervisor Name Role Phone Chetna Cedeno MD Primary Care Provider [phone] Arlyn Schmidt MD Unavailable [phone] Tacho Echavarria MD Unavailable [phone] Matt Ulrich MD Unavailable [phone] Eze Brock Unavailable Shilpa Cline RN Unavailable [phone] Cheryl Nair RN Unavailable [phone] Ophelia Lala RN Unavailable Glo Lee RN Unavailable Unavailab Sanam Evans SCALP TREATMENT SPECIALIST Unavailable Unavailable Hilary Clemens RN Unavailable Unavaila Ruthy Clayton RN Unavailable Unavailable Rayna Partida RN Unavailable Unavailab Artur Nelson RN Unavailable Unavailable Annette Walker SCALP TREATMENT SPECIALIST Unavailable [phone] Emmie Crain RN Unavailable Unavailable Brigida Enriquez RN Unavailable Unavailable Fidel Rainey RN Unavailable Unavailable Batool Celis MD Unavailable [phone] Ayush Marrero MD Primary Care Provider [phone] Encounter Details Date Type Department Care Team (Late st Contact Info) Description 03/18/2024 Lab Requisition [facility] [place] [address] Provider, Unknown Malignant neoplasm of unspecified site [...] Date Recorded PHQ-2 Total Score 0 11/07/2023 [facility] of Occupat ional Health - Occupational Stress [...] AM EDT Appointment [facility] CT [place], [place] [address] Adryan Rowan MD [address] [facility] [address] [place] [address] 04/29/2025 9:15 AM EDT Appointment [place] [address] Batool Celis MD [address] [place] [address] [facility]ER CARE CENTER [place], [place] [address] 05/19/2025 2:15 PM EST Office Visit [facility] [address] [facility] [address] [place] [address] Sin Tran MD [address]00 [place] [address] 06/09/2025 12:45 PM EST Procedure visit [facility] [address] [facility] [address] [place], [place] [address] Samm Ledesma, IMMIGRATION INVESTIGATOR [address] [facility] [address] [place] [address] 08/12/2025 10:40 AM EST Appointment [facility] Women's Wellness [facility] [place] [address] Matt Ulrich MD 20 [facility] [address] [place] [address] documented as of this encounter [...] EDT) CASE REPORT Surgical Pathology Report Case: [id number] Authorizing Provider: Provider, Unknown Collected: 03/18/2024 1327 Ordering Location: [facility] Received: 03/18/2024 1327 Pathologist: Diane Ellis MD Specimen: Breast, Right, Request for case [id number] slides to [facility] Pathology. 05/04/2024 1:26 PM EDT [facility] [employer] [facility] LAB[facility]ATORY FINAL DIAGNOSIS Results will be scanned in this case as an addendum. 05/04/2024 1:26 PM EDT [facility] [employer] AS LABORATORY at 1329 EDT EMBEDDED IMAGES 05/04/2024 1:26 PM EDT [facility] [employer] [facility] ADDENDUM Refer to Scanned [facility] Surgical Pathology Report. 05/04/2024 1:26 PM EDT [facility] [employer] [facility] LAB[facility]ORY Addendum electronically signed by Diane Ellis MD on 05/04/2024 at 1326 EDT Tissue RIGHT BREAST STRUCTURE / Unknown 03/18/2024 1:27 PM EDT 03/18/2024 1:27 PM EDT us Unknown Provider PATHOLOGY ORDERABLES Edited Res ult - Final [facility] [address] [place] [id number] documented in this encounter Visit Diagnoses Diagnosis Malignant neoplasm of unspecified site of right female breast (HCC) documented in this encounter Additional Health Concerns Infection Onset Date Last Indicated Resolved Time COVID-19 09/04/2024 09/04/2024 09/24/2024 10:1 2 PM EDT Assessment Noted Time PHQ-9 Depression Total Score: 12 024 12:00 PM EDT documented as of this encounter Care Teams Fractionation Plant Supervisor Relationship Specialty [place] [address] [place] [address] PCP - General 06/21/10 03/08/25 Ayush Marrero MD [address] [place] [address] PCP - General Family Medicine 03/09/25 Arlyn Schmidt MD [address] [place] [address] Consulting Physician Internal Medicine-Endocrinolog y, Diabetes & Metabolism 11/28/20 Tacho Echavarria MD 1 [place], [place] [address] Internal Medicine-Medical Oncology 11/12/23 Matt Ulrich MD 1 [place] [address] Surgery-Surgical Oncology 12/04/23 Eze Brock Pastoral Care 12/13/23 Shilpa Cline, RN Oncology Nurse Navigator 02/04/2403/09 Cheryl Nair, RN Oncology Nurse Navigator 03/25/2412/13 Ophelia Lala, RN Registered Nurse Infusion Therapy 03/27/24 03/27/24 Glo Lee, RN Registered Nurse Infusion Therapy 04/03/24 04/03/24 Sanam Murray, [facility] Eye Surgeon 04/10/24 07/30/24 Hilary Clemens, RN Registered Nurse Infusion Therapy 04/21/24 04/21/24 Ruthy Walker RN Registered Nurse Infusion Therapy 04/24/24 04/24/24 Rayna Partida, RN Registered Nurse Infusion Clinic 05/01/24 05/01/24 Artur Roberts RN Registered Nurse Infusion Therapy 05/07/24 05/07/24 Annette Walker, SCALP TREATMENT SPECIALIST Eye Surgeon 05/13/24 Emmie Crain, RN Registered Nurse Infusion Therapy 05/14/24 05/14/24 Brigida Enriquez, RN Registered Nurse Infusion Clinic 05/21/24 05/21/24 Fidel Rainey, RN Registered Nurse Infusion Therapy 05/28/24 05/28/24 Batool Celis MD [address] [place] [address] [place] [address] Radiation Oncologist Radiology-Radiation Oncology 06/08/24 documented as of this encounter
--- OUTSIDE RECORDS SUMMARY | 2025-03-16 09:48 | XMS_ITS | Encounter Summary ---
Author Organization [place] [address] Care Team Providers Care Patient Access Name Role Phone Kti Cedeno MD Primary Care Provider [phone] Arlyn Schmidt MD Unavailable [phone] Cheryl Nair RN Unavailable [phone] Tacho Echavarria MD Unavailable [phone] Matt Ulrich MD Unavailable [phone] Hilary Clemens RN Unavailable Unavaila Eze Caro Unavailable Shila Albrecht RN Unavailable Unavail able Cheyanne To RN Unavailable Unavailabl Rayna Wong RN Unavailable Unavailab Shilpa Olivarez RN Unavailable [phone] Tulio Duong RN Unavailable Unavailable Yaquelin Weaver RN Unavailable Unavailable Pam Wang RN Unavailable Unavailable Jazmín Nair RN Unavailable Unavailable Fidel Rainey RN Unavailable Unavailable Cheryl Nair RN Unavailable [phone] Ophelia Lala RN Unavailable Glo Lee RN Unavailable Unavailab Sanam Evans PV DESIGN AND INSTALLATION TECHNICIAN Unavailable Unavailable Hilary Clemens RN Unavailable Unavaila Ruthy Clayton RN Unavailable Unavailable Rayna Partida RN Unavailable Unavailab Artur Nelson RN Unavailable Unavailable Annette Walker PV DESIGN AND INSTALLATION TECHNICIAN Unavailable [phone] Emmie Crain RN Unavailable Unavailable Brigida Enriquez RN Unavailable Unavailable Fidel Rainey RN Unavailable Unavailable Batool Celis MD Unavailable [phone] Ayush Marrero MD Primary Care Provider [phone] Encounter Details Date Type Department Care Team (Late st Contact Info) Description 10/25/2023 Orders Only [facility] One [facility] [place] [address] Diane Ellis MD 1 [place] [address] Social History Tobacco Use Types [...] Info) Description 03/18/2025 7:30 AM EDT Appointment [facility] [address] [place] [id number] Adryan Rowan MD [address] [place] [address] [address] [place] [address] 04/29/2025 9:15 AM EDT Appointment [place] [address] Batool Celis MD 1 [facility] [place] [address] 05/19/2025 2:15 PM EST Office Visit [facility] [address] [place] [address] Sin Tran MD [address] [place] [address] 06/09/2025 12:45 PM EST Procedure visit [facility] [address] [facility] [place], [place] [id number] Samm Ledesma, SENIOR TALENT MANAGEMENT CONSULTANT [address] [place] [address] 08/12/2025 10:40 AM EST Appointment [facility] Women's Wellness [place] One [facility] [place] [address] Matt Ulrich MD [address] [place] [address] [address] [place] [address] documented as of this encounter Goals Goal [...] 10/25/2023 10:4 4 AM EDT Narrative [facility] - 11/06/2023 7:12 PM EDT Requesting Provider: KIT Womack Specimen = [id number] us Diane Ellis MD PATHOLOGY ORDERABLES Final Resul t [facility] 1 [place] [address] documented in this encounter Visit Diagnoses Not on filedocumented in this encounter Additional Health Concerns Infection Onset Date Last Indicated Resolved Time COVID-19 09/04/2024 09/04/2024 09/24/2024 10:1 2 PM EDT documented as of this encounter Care Teams Patient Access Relationship Specialty [place] [address] [place] [address] PCP - General 06/21/10 03/08/25 Ayush Marrero MD [address] [place] [address] PCP - General Family Medicine 03/09/25 Arlyn Schmidt MD [address] [place], [place] [id number] Consulting Physician Internal Medicine-Endocrinolog y, Diabetes & Metabolism 11/28/20 Cheryl Nair, RN Oncology Nurse Navigator 10/29/2302/05 Tacho Echavarria MD 1 [place] [address] Internal Medicine-Medical Oncology 11/12/23 Matt Ulrich MD 1 [place] [address] Surgery-Surgical Oncology 12/04/23 Hilary Clemens, RN Registered [...] 04/03/24 Sanam Murray, [facility] Resident Services Supervisor 04/10/24 07/30/24 Hilary Clemens, RN Registered Nurse Infusion Therapy 04/21/24 04/21/24 Ruthy Walker RN Registered Nurse Infusion Therapy 04/24/24 04/24/24 Rayna Partida, RN Registered Nurse Infusion Clinic 05/01/24 05/01/24 Artur Roberts RN Registered Nurse Infusion Therapy 05/07/24 05/07/24 Annette Walker, PV DESIGN AND INSTALLATION TECHNICIAN Resident Services Supervisor 05/13/24 Emmie Crain, RN Registered Nurse Infusion Therapy 05/14/24 05/14/24 Brigida Enriquez, RN Registered Nurse Infusion Clinic 05/21/24 05/21/24 Fidel Rainey, RN Registered Nurse Infusion Therapy 05/28/24 05/28/24 Batool Celis MD [address] [place] [address] [place] [address] Radiation Oncologist Radiology-Radiation Oncology 06/08/24 documented as of this encounter
--- OUTSIDE RECORDS SUMMARY | 2025-03-16 09:48 | XMS_ITS | Encounter Summary ---
Author Organization [place] [address] Care Team Providers Care Metal Expediter Name Role Phone Chetna Cedeno MD Primary Care Provider [phone] Arlyn Schmidt MD Unavailable [phone] Tacho Echavarria MD Unavailable [phone] Matt Ulrich MD Unavailable [phone] Eze Brock Unavailable Annette Walker ON SITE PROPERTY MANAGER Unavailable [phone] Batool Celis MD Unavailable [phone] Encounter Details Date Type Department Care Team (Late st Contact Info) Description 02/01/2025 Social Work [facility] Cancer Care [facility] [place] [address] Sonny [place], ON SITE PROPERTY MANAGER Social History Tobacco Use Types Packs/Day [...] th e electric, gas, oil, or water [employer] threatened to shut off services in your [...] Total Score 5 07/07/2024 [facility] of Occupat ional Health - Occupational Stress [...] a mcc (including now)? No 11/07/2023 [facility] IP Transportation Answer D ate [...] - 02/01/2025 3:04 PM EDT 02/01/25 1504 Manager Visual Assessment Referred By Pt. Call Disease/[place] Site Plasterer Maintenance Assignment Breast cancer Referral Location: [facility] [...] Description 03/18/2025 7:30 AM EDT Appointment [facility] [place] [address] Adryan Rowan MD [address] [place] [address] [address] [place] [address] 04/29/2025 9:15 AM EDT Appointment [place] [address] Batool Celis MD 1 [facility] [place] [address] 05/19/2025 2:15 PM EST Office Visit [address] [address] Sin Tran MD [address] [facility] [place] [address] 06/09/2025 12:45 PM EST Procedure visit [facility] [address] [place] [address] Samm Ledesma, AIRCRAFT LOAD CONTROLLER [address] [place] [address] 08/12/2025 10:40 AM EST Appointment [facility] Women's Wellness [place] [address] [place] [address] Matt Ulrich MD [address] [place] [address] [address] [place] [address] documented as of this encounter [...] as of this encounter Care Teams Metal Expediter Relationship Specialty [place] [address] [place] [address] PCP - General 06/21/10 03/08/25 Arlyn Schmidt MD [address] [place] [address] Consulting Physician Internal Medicine-Endocrinology, Diabetes & Metabolism 11/28/20 Tacho Echavarria MD 1 [place] [address] Internal Medicine-Medical Oncology 11/12/23 Matt Ulrich MD 1 [place] [address] Surgery-Surgical Oncology 12/04/23 Eze Brock Pastoral Care 12/13/23 Annette Walker, ARACELI Plasterer Maintenance 05/13/24 Batool Celis MD 1 [facility] [place] [address] Radiation Oncologist Radiology-Radiation Oncology 06/08/24 documented as of this encounter
--- OUTSIDE RECORDS SUMMARY | 2025-03-16 09:48 | XMS_ITS | Encounter Summary ---
Author Organization [place] [address] Care Team Providers Care Culinary Artist Name Role Phone Kit Cedeno MD Primary Care Provider [phone] Arlyn Schmidt MD Unavailable [phone] Cheryl Nair RN Unavailable [phone] Tacho Echavarria MD Unavailable [phone] Matt Ulrich MD Unavailable [phone] Hilary Clemens RN Unavailable Unavaila Eze Caro Unavailable Shila Albrecht RN Unavailable Unavail able Cheyanne To RN Unavailable Unavailabl Rayna Wong RN Unavailable Unavailab Shilpa Olivarez RN Unavailable [phone] Tulio Duong RN Unavailable Unavailable Yaquelin Weaver RN Unavailable Unavailable Pam Wang RN Unavailable Unavailable Jazmín Nair RN Unavailable Unavailable Fidel Rainey RN Unavailable Unavailable Cheryl Nair RN Unavailable [phone] Ophelia Lala RN Unavailable Glo Lee RN Unavailable Unavailab Sanam Evans CONSTRUCTION AND MAINTENANCE INSPECTOR Unavailable Unavailable Hilary Clemens RN Unavailable Unavaila Ruthy Clayton RN Unavailable Unavailable Rayna Partida RN Unavailable Unavailab Artur Nelson RN Unavailable Unavailable Annette Walker CONSTRUCTION AND MAINTENANCE INSPECTOR Unavailable [phone] Emmie Crain RN Unavailable Unavailable Brigida Enriquez RN Unavailable Unavailable Fidel Rainey RN Unavailable Unavailable Batool Celis MD Unavailable [phone] Ayush Marrero MD Primary Care Provider [phone] Encounter Details Date Type Department Care Team (Late st Contact Info) Description 10/25/2023 Orders Only [facility] One [facility] [place] [address] Diane Ellis MD 1 [place] [address] Social History Tobacco Use Types [...] 7:30 AM EDT Appointment [facility] CT [address] [place] [id number] Adryan Rowan MD [address] [place] [address] [address] [place] [address] 04/29/2025 9:15 AM EDT Appointment [facility] [place] [address] Batool Celis MD 1 [facility] [place] [address] 05/19/2025 2:15 PM EST Office Visit [facility] [address] [place] [address] Sin Tran MD [address] [place] [address] 06/09/2025 12:45 PM EST Procedure visit [facility] [address] [facility] [address] [place], [place] [address] Samm Ledesma, CLASSROOM COORDINATOR [address] [place] [address] 08/12/2025 10:[address] [facility] Women's Wellness [facility] [place] [address] Matt Ulrich MD [address] [place] [address] [address] [place] [address] documented as of this encounter Goals Goal [...] EDT) 10/25/2023 10:[address] [facility] - 11/11/2023 7:42 AM EDT Requesting Provider: KIT Womack Specimen = [id number] us Diane Ellis MD PATHOLOGY ORDERABLES Final Resul t [facility] 1 [place] [address] documented in this encounter Visit Diagnoses Not on filedocumented in this encounter Additional Health Concerns Infection Onset Date Last Indicated Resolved Time COVID-19 09/04/2024 09/04/2024 09/24/2024 10:1 2 PM EDT documented as of this encounter Care Teams Culinary Artist Relationship Specialty [place] [address] [place] [address] PCP - General 06/21/10 03/08/25 Ayush Marrero MD [address] [place] [address] PCP - General Family Medicine 03/09/25 Arlyn Schmidt MD [address] [place] [address] Consulting Physician Internal Medicine-Endocrinolog y, Diabetes & Metabolism 11/28/20 Cheryl Nair, RN Oncology Nurse Navigator 10/29/2302/05 Tacho Echavarria MD 1 [place] [address] Internal Medicine-Medical Oncology 11/12/23 Matt Ulrich MD 1 [place] [address] Surgery-Surgical Oncology 12/04/23 Hilary Clemens, RN Registered [...] Sanam Murray, [facility] Forest Landscape Ecology Professor 04/10/24 07/30/24 Hilary Clemens, RN Registered Nurse Infusion Therapy 04/21/24 04/21/24 Ruthy Walker RN Registered Nurse Infusion Therapy 04/24/24 04/24/24 Rayna Partida, RN Registered Nurse Infusion Clinic 05/01/24 05/01/24 Artur Roberts RN Registered Nurse Infusion Therapy 05/07/24 05/07/24 Annette Walker, [facility] Forest Landscape Ecology Professor 05/13/24 Emmie Crain, RN Registered Nurse Infusion Therapy 05/14/24 05/14/24 Brigida Enriquez, RN Registered Nurse Infusion Clinic 05/21/24 05/21/24 Fidel Rainey, RN Registered Nurse Infusion Therapy 05/28/24 05/28/24 Batool Celis MD [address] [place] [address] [place] [address] Radiation Oncologist Radiology-Radiation Oncology 06/08/24 documented as of this encounter
--- OUTSIDE RECORDS SUMMARY | 2025-03-16 09:49 | XMS_ITS | Encounter Summary ---
Author Organization [place] [address] Care Team Providers Care Planting Machine Crewman Name Role Phone Chetna Cedeno MD Primary Care Provider [phone] Arlyn Schmidt MD Unavailable [phone] Tacho Echavarria MD Unavailable [phone] Matt Ulrich MD Unavailable [phone] Eze Brock Unavailable Annette Walker Unavailable [phone] Batool Celis MD Unavailable [phone] Reason for Visit * Reason Onset Date Comments Other 02/03/2025 Pain pump meds Encounter Details Date Type Department Care Team (Late st Contact Info) Description 02/03/2025 Telephone [facility] [address] [address] Sin Tran MD [address] [place] [address] Other (Pain pump meds) Social History [...] in a chcf (including now)? No 11/07/2023 [facility] [...] encounter Miscellaneous Notes * Telephone Encounter - Leisa Jensenenne - 02/03/2025 12:28 PM EDT Pain pump meds received for fill date 02/10/25 documented in this encounter Plan of Treatment Upcoming Encounters Date Type Department Care Team (Late st Contact Info) Description 03/18/2025 7:30 AM EDT Appointment [place] [address] Adryan Rowan MD [facility] [address] [place] [address] 04/29/2025 9:15 AM EDT Appointment [place] [address] Batool Celis MD 1 [facility] [place] [address] 05/19/2025 2:15 PM EST Office Visit [facility] [address] [place] [address] [address] [place] [address] Sin Tran MD [address] [place] [address] 06/09/2025 12:45 PM EST Procedure visit [facility] [place] [address] [facility] [address] [place] [address] Samm Ledesma, ASSOCIATE PROFESSOR OF COMMUNICATION [address] [facility] [facility] [address] [place] [address] 08/12/2025 10:40 AM EST Appointment [facility] Women's Wellness [facility] [place] [address] Matt Ulrich MD [address] [place] [address] DR [address] [place], [place] [id number] documented as of this encounter Goals Goal [...] documented as of this encounter Care Teams Planting Machine Crewman Relationship Specialty [place] [address] [place] [address] PCP - General 06/21/10 03/08/25 Arlyn Schmidt MD [address] [place] [address] Consulting Physician Internal Medicine-Endocrinology, Diabetes & Metabolism 11/28/20 Tacho Echavarria MD 1 [place] [address] Internal Medicine-Medical Oncology 11/12/23 Matt Ulrich MD 1 [place] [address] Surgery-Surgical Oncology 12/04/23 Eze Brock Pastoral Care 12/13/23 Annette Walker, ARACELI Payroll Benefits Clerk 05/13/24 Batool Celis MD 1 [facility] [place] [address] Radiation Oncologist Radiology-Radiation Oncology 06/08/24 documented as of this encounter
--- OUTSIDE RECORDS SUMMARY | 2025-03-16 09:49 | XMS_ITS | Referral Summary ---
Author Organization [facility] Address [address] [place] [address] Phone Care Team Providers Care Ad Taker Name Role Phone Chetna Cedeno MD Primary Care Provider [phone] Encounters Date Type Department Care Team Description 01/02/2025 4:26 PM EDT - 01/02/2025 7:27 PM EDT Emergency [facility] Emergency Department [address] [place] [address] Dallin Espinoza MD Heat exhaustion, [...] NITROGEN 16 8 - 26 mg/dL [facility] SODIUM 140 135 - 145 mmol/L [facility] POTASSIUM 3.2(L) 3.6 - 5.1 mmol/L [facility] CHLORIDE 107 98 - 111 mmol/L [facility] CO2 20(L) 21 - 31 mmol/L [facility] GLUCOSE, RANDOM 89 70 - 99 mg/dL [facility] CREATININE 1.06 0.60 - 1.20 mg/dL [facility] ANION GAP 13 4 - 16 mmol/L [facility] CALCIUM 9.0 8.5 - 10.4 mg/dL [facility] ESTIMATED GFR 61 >59 mL/min/1.7 3 m2 [facility] Comment: Estimated GFR was calculated using the CKD-EPI cr (2020) equation refit without race. The equation is recommended by the National Kidney Foundation - Citizen Of [place] Society of Nephrology Task Force. Tested at [facility] [address] [place] [address] Whole Blood 01/02/2025 5:13 PM EDT 01/02/2025 5:25 PM EDT us Dallin Espinoza MD LAB BLOOD ORDERABLES Final Result [facility] [address] [place] [address] [address] * (ABNORMAL) CBC w/ Diff (01/02/2025 5:13 PM EDT) WBC 7.1 3.6 - 10.5 THOU/mcL [facility] [place] RBC 3.75(L) 3.80 - 5.20 MIL/mcL [facility] [place] HEMOGLOBIN 11.2(L) 12.0 - 15.2 g/dL [facility] [place] HEMATOCRIT 33.6(L) 36 - 46 % [facility] MCV 89.6 82 - 97 fL [facility] MCH 30.0 27 - 33 pg [facility] [place] MCHC 33.5 32 - 36 g/dL [facility] RDW 16.0 12.3 - 17.0 % [facility] PLATELET 206 140 - 375 THOU/mcL [facility] MPV 6.9(L) 7.0 - 11.5 fL [facility] [place] ABS. NEUTROPHIL 3.60 1.80 - 7.70 THOU/mcL [facility] [place] ABS LYMPHS 3.00 1.00 - 4.00 THOU/mcL [facility] [place] ABS MONOS 0.30 0.20 - 0.90 THOU/mcL [facility] [place] ABS EOS 0.10 0.03 - 0.45 THOU/mcL [facility] [place] ABS BASOS 0.10 0.00 - 0.20 THOU/mcL [facility] [place] SEGS 51 % [facility] [place] LYMPHOCYTES 43 % CHEMISTR Y NORTH MONOCYTES 4 % [facility]MI[facility]TH EOSINOPHIL 1 % [facility]MI[facility] BASOPHILS 1 % [facility] [place] Comment:Tested at [facility] [address] [facility] [address] Whole Blood 01/02/2025 5:13 PM EDT 01/02/2025 5:25 PM EDT Dallin Espinoza MD LAB BLOOD ORDERABLES Final Result [facility] [address] [place] [address] [facility] [place] [address] [place] [address] * ECG 12 lead (01/02/2025 4:37 PM [...] QTcF 417 ms TH TRACEMASTER QRS Horizontal [place] -19 deg TH TRACEMASTER QRS AXIS 16 deg TH TRACEMASTER I-40 Horizontal [place] 46 deg TH TRACEMASTER I-40 FRONT AXIS -17 deg TH TRACEMASTER T-40 Horizontal [place] -50 deg TH TRACEMASTER T-40 Front [place] 51 deg TH TRACEMASTER T Horizontal [place] 52 deg TH TRACEMASTER T WAVE AXIS 16 deg TH TRACEMASTER S-T Horizontal [place] 60 deg TH TRACEMASTER S-T Front [place] 24 deg TH TRACEMASTER ECG IMPRESSION - BORDERLINE ECG - TH TRACEMASTER ECG IMPRESSION SR-Sinus rhythm-normal P axis, V-rate 50-99 TH TRACEMASTER ECG IMPRESSION LVHVP-Probable left ventricular hypertrophy-mul tiple LVH criteria TH TRACEMASTER ECGGUID [id number] TH TRACEMASTER 01/02/2025 4:37 PM EDT us Dallin Espinoza MD ECG ORDERABLES Final Resu lt TH TRACEMASTER from Last 3 Months Insurance [facility] MEDICAID Care Teams Ad Taker Relationship Specialty Start Date End Date Chetna Cedeno MD [facility] [address] [place] [address] PCP - General Family Medicine 01/02/25
--- OUTSIDE RECORDS SUMMARY | 2025-03-16 09:49 | XMS_ITS | Encounter Summary ---
Author Organization [place] [address] Care Team Providers Care Vice President Of Nursing Name Role Phone Chetna Cedeno MD Primary Care Provider [phone] Arlyn Schmidt MD Unavailable [phone] Tacho Echavarria MD Unavailable [phone] Matt Ulrich MD Unavailable [phone] Eze Brock Unavailable Annette Walker Unavailable [phone] Batool Celis MD Unavailable [phone] Reason for Visit * Reason Onset Date Comments Symptom Call 02/05/2025 lightheaded / he adache Encounter Details Date Type Department Care Team (Late st Contact Info) Description 02/05/2025 Telephone [facility] Medical Oncology [place], [place] [id number] Tacho Echavarria MD [address] [place] [id number] Symptom Call (lightheaded / headache ) Social [...] in a assisted (including now)? No 11/07/2023 [facility] IP Transportation Answer [...] relief. Rates 4/10. Went to ER in [facility] last week r/t diarrhea, K was 2.5 [...] seen at: [facility] Preferred call back number: [phone] Explained to the caller, if this is a medical emergency please call 911 or go to the nearest emergency room. documented in this encounter Plan of Treatment Upcoming Encounters Date Type Department Care Team (Late st Contact Info) Description 03/18/2025 7:30 AM EDT Appointment [facility] [place] [address] Adryan Rowan MD [address] [place] [address] [address] [place] [address] 04/29/2025 9:15 AM EDT Appointment [facility] [place] [address] Batool Celis MD 1 [facility] [place], [place] [id number] 05/19/2025 2:15 PM EST Office Visit [address] [address] Sin Tran MD [address] [facility] [place] [id number] 06/09/2025 12:45 PM EST Procedure visit [facility] [address] [place] [address] Samm Ledesma, LEYLA [address] [facility] [address] [place] [address] 08/12/2025 10:40 AM EST Appointment [facility] Women's Wellness [place] One [facility] [place] [address] Matt Ulrich MD [address] [place] [address] [address] [place] [address] documented as of this encounter [...] this encounter Care Teams Vice President Of Nursing Relationship Specialty Start [place] [address] [place] [address] PCP - General 06/21/10 03/08/25 Arlyn Schmidt MD [address] [place], [place] [address] Consulting Physician Internal Medicine-Endocrinology, Diabetes & Metabolism 11/28/20 Tacho Echavarria MD 1 [place], [place] [id number] Internal Medicine-Medical Oncology 11/12/23 Matt Ulrich MD 1 [place], [place] [address]17 Surgery-Surgical Oncology 12/04/23 Eze Brock Pastoral Care 12/13/23 Annette Walker, ARACELI [place] 05/13/24 Batool Celis MD 1 [facility] [place] [address] Radiation Oncologist Radiology-Radiation Oncology 06/08/24 documented as of this encounter
--- OUTSIDE RECORDS SUMMARY | 2025-03-16 09:49 | XMS_ITS | Encounter Summary ---
Author [place] [address] Care Team Providers Care Gifts Officer Name Role Phone Chetna Cedeno MD Primary Care Provider [phone] Arlyn Schmidt MD Unavailable [phone] Tacho Echavarria MD Unavailable [phone] Matt Ulrich MD Unavailable [phone] Eze Brock Unavailable Annette Walker Unavailable [phone] Batool Celis MD Unavailable [phone] Reason for Visit * Reason Onset Date Comments Integrative Oncology Referral 02/05/2025 Encounter Details Date Type Department Care Team (Late st Contact Info) Description 02/05/2025 Telephone [facility] [place], [place] [id number] Narda Vickers, Clerical Staff Integrative Oncology Referral [...] doctor or pharmacy? Never 11/07/2023 [facility] Utilities Answer Date Recorded In the past 12 months has th e electric, gas, oil, or water [employer] threatened to shut off services in your [...] Date Recorded PHQ-2 Total Score 5 07/07/2024 [facility] of Occupat ional Health - Occupational Stress [...] [facility] IP Transportation Answer D ate Recorded [...] Clerical Staff - 02/05/2025 11:38 AM EDT theScore message sent with Integrative Oncology information and newsletter. Narda documented in this encounter Plan of Treatment Upcoming Encounters Date Type Department Care Team (Late st Contact Info) Description 03/18/2025 7:30 AM EDT Appointment [facility] [place] [id number] Adryan Rowan MD [address] [facility] [address] [place] [id number] 04/29/2025 9:15 AM EDT Appointment [facility] [place], [place] [id number] Batool Celis MD 1 [facility] [place] [address] 05/19/2025 2:15 PM EST Office Visit [facility] [address] [facility] [address] [place] [address] Sin Tran MD [address] [place] [address] 06/09/2025 12:45 PM EST Procedure visit [facility] [address] [place] [address] Samm Ledesma, PASSENGER BARGE MASTER [address] [place] [address] 08/12/2025 10:40 AM EST Appointment [facility] Women's Wellness [facility] [address] [place] [address] Matt Ulrich MD [address] [place] [address] [address] [place] [address] documented as of this encounter [...] maintain an ideal body weight General No Sanma Julio MA documented as of this encounter Visit Diagnoses Not on filedocumented in this encounter Additional Health Concerns Assessment Noted Time PHQ-9 Depression Total Score: 17 024 8:39 AM EST PHQ-2 Depression Total Score: 5 07/07/20 24 8:39 AM EST documented as of this encounter Care Teams Gifts Officer Relationship Specialty [place] [address] [address] [place] [address] PCP - General 06/21/10 03/08/25 Arlyn Schmidt MD [address] [place] [address] Consulting Physician Internal Medicine-Endocrinology, Diabetes & Metabolism 11/28/20 Tacho Echavarria MD 1 [place] [address] Internal Medicine-Medical Oncology 11/12/23 Matt Ulrich MD 1 [place] [address] Surgery-Surgical Oncology 12/04/23 Eze Brock Pastoral Care 12/13/23 Annette Walker, BLASTING WORKER Supervisor [employer] 05/13/24 Batool Celis MD 1 [facility] [place] [address] Radiation Oncologist Radiology-Radiation Oncology 06/08/24 documented as of this encounter
--- OUTSIDE RECORDS SUMMARY | 2025-03-16 09:49 | XMS_ITS | Encounter Summary ---
Author Organization [place] [address] Care Team Providers Care Color Consultant Name Role Phone Chetna Cedeno MD Primary Care Provider [phone] Arlyn Schmidt MD Unavailable [phone] Tacho Echavarria MD Unavailable [phone] Matt Ulrich MD Unavailable [phone] Eze Brock Unavailable Annette Walker Unavailable [phone] Batool Celis MD Unavailable [phone] Reason for Visit * Reason Onset Date Comments Appointment Needed 02/04/2025 Encounter Details Date Type Department Care Team (Late st Contact Info) Description 02/04/2025 Telephone [facility] [place] [address] Aliya Harden, Clerical Staff Appointment [...] th e electric, gas, oil, or water [employer] threatened to shut off services in your [...] Score 5 07/07/2024 [facility] of Occupat ional Health - Occupational [...] residential (including now)? No 11/07/2023 [facility] IP Transportation Answer [...] EDT Appointment [facility] [place] [address] Adryan Rowan MD [address] [facility] [address] [place] [address] 04/29/2025 9:15 AM EDT Appointment [facility] [address] Batool Celis MD [address] [place] [address] [facility]ER CARE [facility] [place], [place] [id number] 05/19/2025 2:15 PM EST Office Visit [facility] [address] [facility] [address] [place] [address] Sin Tran MD [address] [place] [address] 06/09/2025 12:45 PM EST Procedure visit [facility] [address] [facility] [address] [place] [address] Samm Ledesma APRN [address] [facility] [address] [place] [address] 08/12/2025 10:40 AM EST Appointment [facility] Women's Wellness [facility] [place] [address] Matt Ulrich MD [address] [place] [address] DR [address] [place] [address] documented as of this encounter [...] documented as of this encounter Care Teams Color Consultant Relationship Specialty [place] [address] [place] [address] PCP - General 06/21/10 03/08/25 Arlyn Schmidt MD [address] [place] [address] Consulting Physician Internal Medicine-Endocrinology, Diabetes & Metabolism 11/28/20 Tacho Echavarria MD 1 [place] [address] Internal Medicine-Medical Oncology 11/12/23 Matt Ulrich MD 1 [place] [address] Surgery-Surgical Oncology 12/04/23 Eze Brock Pastoral Care 12/13/23 Annette Walker MSW Contracting Manager 05/13/24 Batool Celis MD 1 [facility] [place] [address] Radiation Oncologist Radiology-Radiation Oncology 06/08/24 documented as of this encounter
== END 2025-03-15 23:59 ==
LOC: LAB.DROPOF 03-16 09:40
PROVIDERS: PCP Student in an Organized Health Care Education/Training Program; Visit Provider Student in an Organized Health Care Education/Training Program
DX: E87.6 Hypokalemia (principal)
CPT/HCPCS: 80048

== ENCOUNTER 2025-03-25 14:44 | Outpatient (CLI) | payer MEDICAID, SELFPAY ==
--- OUTSIDE RECORDS SUMMARY | 2025-03-25 14:47 | XMS_ITS | Referral Summary ---
Author Organization [facility] Address [address] [place] [address] Phone Care Team Providers Care Chemical Maker Name Role Phone Chetna Cedeon MD Primary Care Provider [phone] Encounters Date Type Department Care Team Description 01/02/2025 4:26 PM EDT - 01/02/2025 7:27 PM EDT Emergency [facility] Emergency Department [address] [place] [address] Dallin Espinoza MD Heat exhaustion, [...] NITROGEN 16 8 - 26 mg/dL [facility] [place] SODIUM 140 135 - 145 mmol/L [facility] [place] POTASSIUM 3.2(L) 3.6 - 5.1 mmol/L [facility] [place] CHLORIDE 107 98 - 111 mmol/L [facility] [place] CO2 20(L) 21 - 31 mmol/L [facility] [place] GLUCOSE, RANDOM 89 70 - 99 mg/dL [facility] [place] CREATININE 1.06 0.60 - 1.20 mg/dL [facility] [place] ANION GAP 13 4 - 16 mmol/L [facility] [place] CALCIUM 9.0 8.5 - 10.4 mg/dL [facility] [place] ESTIMATED GFR 61 >59 mL/min/1.7 3 m2 [facility] [place] Comment: Estimated GFR was calculated using the CKD-EPI cr (2020) equation refit without race. The equation is recommended by the National Kidney Foundation - [place] Society of Nephrology Task Force. Tested at [facility] [id number] [place] [address] Whole Blood 01/02/2025 5:13 PM EDT 01/02/2025 5:25 PM EDT us Dallin Espinoza MD LAB BLOOD ORDERABLES Final Result [facility] [address] [place] [address] [address] * (ABNORMAL) CBC w/ Diff (01/02/2025 5:13 PM EDT) WBC 7.1 3.6 - 10.5 THOU/mcL [facility] [place] RBC 3.75(L) 3.80 - 5.20 MIL/mcL [facility] [place] HEMOGLOBIN 11.2(L) 12.0 - 15.2 g/dL [facility] [place] HEMATOCRIT 33.6(L) 36 - 46 % [facility] MCV 89.6 82 - 97 fL [facility] MCH 30.0 27 - 33 pg [facility] [place] MCHC 33.5 32 - 36 g/dL [facility] [place] RDW 16.0 12.3 - 17.0 % [facility] [place] PLATELET 206 140 - 375 THOU/mcL [facility] [place] MPV 6.9(L) 7.0 - 11.5 fL [facility] [place] ABS. NEUTROPHIL 3.60 1.80 - 7.70 THOU/mcL [facility] [place] ABS LYMPHS 3.00 1.00 - 4.00 THOU/mcL [facility] [place] ABS MONOS 0.30 0.20 - 0.90 THOU/mcL [facility] [place] ABS EOS 0.10 0.03 - 0.45 THOU/mcL [facility] [place] ABS BASOS 0.10 0.00 - 0.20 THOU/mcL [facility] [place] SEGS 51 % [facility] [place] LYMPHOCYTES 43 % CHEMISTR Y NORTH MONOCYTES 4 % [facility] [place] EOSINOPHIL 1 % [facility] [place] BASOPHILS 1 % [facility] [place] Comment:Tested at [facility] [address] [facility] [address] Whole Blood 01/02/2025 5:13 PM EDT 01/02/2025 5:25 PM EDT Dallin Espinoza MD LAB BLOOD ORDERABLES Final Result [facility] [address] [place] [address] [facility] [place] [address] [place] [address] * ECG 12 lead (01/02/2025 4:37 PM [...] QTcF 417 ms TH TRACEMASTER QRS Horizontal [place] -19 deg TH TRACEMASTER QRS AXIS 16 deg TH TRACEMASTER I-40 Horizontal [place] 46 deg TH TRACEMASTER I-40 FRONT AXIS -17 deg TH TRACEMASTER T-40 Horizontal [place] -50 deg TH TRACEMASTER T-40 Front [place] 51 deg TH TRACEMASTER T Horizontal [place] 52 deg TH TRACEMASTER T WAVE AXIS 16 deg TH TRACEMASTER S-T Horizontal [place] 60 deg TH TRACEMASTER S-T Front [place] 24 deg TH TRACEMASTER ECG IMPRESSION - BORDERLINE ECG - TH TRACEMASTER ECG IMPRESSION SR-Sinus rhythm-normal P axis, V-rate 50-99 TH TRACEMASTER ECG IMPRESSION LVHVP-Probable left ventricular hypertrophy-mul tiple LVH criteria TH TRACEMASTER ECGGUID [id number] TH TRACEMASTER 01/02/2025 4:37 PM EDT us Dallin Espinoza MD ECG ORDERABLES Final Resu lt TH TRACEMASTER from Last [address] [facility] MEDICAID Care Teams Chemical Maker Relationship Specialty Start Date End Date Chetna Cedeno MD [place] [facility] [address] [place] [address] PCP - General Family Medicine 01/02/25
--- OUTSIDE RECORDS SUMMARY | 2025-03-25 14:47 | XMS_ITS | Clinical Summary ---
Author Organization [facility] Address [address] [place] [address] Phone Care Team Providers Care Superintendent Landfill Operations Name Role Phone Chetna Cedeno MD Primary Care Provider Allergies Active Allergy Reactions Criticality Noted Date [...] EDT - 01/02/2025 7:27 PM EDT Emergency [facility] Emergency Department [address] [place] [address] Dallin Espinoza MD Heat exhaustion, [...] (ABNORMAL) BAMP (Na,K,Cl,CO2,Glu,BUN,Creat,Ca) (01/02/2025 5:13 PM EDT) [facility] BLD UREA NITROGEN 16 8 - 26 mg/dL [facility] [place] SODIUM 140 135 - 145 mmol/L [facility] [place] POTASSIUM 3.2(L) 3.6 - 5.1 mmol/L [facility] [place] CHLORIDE 107 98 - 111 mmol/L [facility] [place] CO2 20(L) 21 - 31 mmol/L [facility] [place] GLUCOSE, RANDOM 89 70 - 99 mg/dL [facility] [place] CREATININE 1.06 0.60 - 1.20 mg/dL [facility] [place] ANION GAP 13 4 - 16 mmol/L [facility] [place] CALCIUM 9.0 8.5 - 10.4 mg/dL [facility] [place] ESTIMATED GFR 61 >59 mL/min/1.7 3 m2 [facility] [place] Comment: Estimated GFR was calculated using the CKD-EPI cr (2020) equation refit without race. The equation is recommended by the National Kidney Foundation - [place] Society of Nephrology Task Force. Tested at [place] [id number] Whole Blood 01/02/2025 5:13 PM EDT 01/02/2025 5:25 PM EDT Dallin Espinoza MD LAB BLOOD ORDERABLES Final Result [facility] [address] [place] [address] [place] [address] * (ABNORMAL) CBC w/ Diff (01/02/2025 5:13 PM EDT) [facility] WBC 7.1 3.6 - 10.5 THOU/[facility]STR[facility] [place] RBC 3.75(L) 3.80 - 5.20 MIL/mcL [facility] [place] HEMOGLOBIN 11.2(L) 12.0 - 15.2 g/dL [facility] [place] HEMATOCRIT 33.6(L) 36 - 46 % [facility] [place] MCV 89.6 82 - 97 fL [facility] [place] MCH 30.0 27 - 33 pg [facility] [place] MCHC 33.5 32 - 36 g/dL [facility] [place] RDW 16.0 12.3 - 17.0 % [facility] [place] PLATELET 206 140 - 375 THOU/mcL [facility] [place] MPV 6.9(L) 7.0 - 11.5 fL [facility] [place] ABS. NEUTROPHIL 3.60 1.80 - 7.70 THOU/mcL [facility] [place] ABS LYMPHS 3.00 1.00 - 4.00 THOU/mcL [facility] [place] ABS MONOS 0.30 0.20 - 0.90 THOU/mcL [facility] [place] ABS EOS 0.10 0.03 - 0.45 THOU/mcL [facility] [place] ABS BASOS 0.10 0.00 - 0.20 THOU/mcL [facility] [place] SEGS 51 % [facility] [place] LYMPHOCYTES 43 % CHEMISTR Y NORTH MONOCYTES 4 % [facility] [place] EOSINOPHIL 1 % [facility] [place] BASOPHILS 1 % [facility] [place] Comment:Tested at [facility] [address] [facility] [address] Whole Blood 01/02/2025 5:13 PM EDT 01/02/2025 5:25 PM EDT us Dallin Espinoza MD LAB BLOOD ORDERABLES Final Result [facility] [address] [place] [address] [facility] [address] [place] [address] * ECG 12 lead (01/02/2025 4:37 PM [...] QTcF 417 ms TH TRACEMASTER QRS Horizontal [place] -19 deg TH TRACEMASTER QRS AXIS 16 deg TH TRACEMASTER I-40 Horizontal [place] 46 deg TH TRACEMASTER I-40 FRONT AXIS -17 deg TH TRACEMASTER T-40 Horizontal [place] -50 deg TH TRACEMASTER T-40 Front Silt 51 deg TH TRACEMASTER T Horizontal Silt 52 deg TH TRACEMASTER T WAVE AXIS 16 deg TH TRACEMASTER S-T Horizontal [place]ilt 60 deg TH TRACEMASTER S-T Front Silt 24 deg TH TRACEMASTER ECG IMPRESSION - BORDERLINE ECG - TH TRACEMASTER ECG IMPRESSION SR-Sinus rhythm-normal P axis, V-rate 50-99 TH TRACEMASTER ECG IMPRESSION LVHVP-Probable left ventricular hypertrophy-mul tiple LVH criteria TH TRACEMASTER ECGGUID [id number] TH TRACEMASTER 01/02/2025 4:37 PM EDT us Dallin Espinoza MD ECG ORDERABLES Final Resu lt TH TRACEMASTER from Last 3 Months Insurance [facility] MEDICAID Care Teams Superintendent Landfill Operations Relationship Specialty Start Date End Date Chetna Cedeno MD [facility] [address] [place] [address] PCP - General Family Medicine 01/02/25
[2025-03-25 15:56] LABS: Hematocrit 30.5 % (37.0-47.0); Hemoglobin 10.1 g/dL (12.2-16.2); Immature Granulocytes % 0.2 %; Mean Corpuscular HGB Conc 33.1 g/dL (31.8-35.4); Mean Corpuscular Hemoglobin 31.6 pg (27.0-31.2); Mean Corpuscular Volume 95.3 fl (81-99); Nucleated Red Blood Cells % 0 %; Platelet Count 238 K/mm3 (142-424); Red Blood Count 3.20 M/mm3 (4.20-5.40); Red Cell Distribution Width-SD 47.1 fL; White Blood Count 4.2 K/mm3 (4.8-10.8)
[2025-03-25 16:46] LABS: Alanine Aminotransferase 11 U/L (12-78); Albumin Level 4.3 g/dl (3.5-5.0); Albumin/Globulin Ratio 1.7 (1.1-1.8); Alkaline Phosphatase 119 U/L (38-126); Anion Gap 12.9 mEq/L (5-15); Aspartate Amino Transferase 22 U/L (14-36); Bilirubin,Total 0.5 mg/dl (0.2-1.3); Blood Urea Nitrogen 12 mg/dl (7-17); Calcium 9.1 mg/dl (8.4-10.2); Carbon Dioxide 26 mmol/L (22.0-30.0); Chloride 103 mmol/L (98-107); Creatinine,Serum 0.80 mg/dl (0.52-1.04); Estimated Glomerular Filt Rate 74 ml/min (>60); GFR (African American) 89 ML/MIN (>60); Globulin 2.5 g/dL (1.3-3.2); Glucose 96 mg/dl (74-100); Potassium 3.9 mmoL/L (3.5-5.1); Sodium 138 mmol/L (136-145); Total Protein,Serum 6.8 g/dl (6.3-8.2)
[2025-03-25 17:03] LABS: Free T4 (Free Thyroxine) 1.13 ng/dl (0.78-2.19)
[2025-03-25 17:14] LABS: Thyroid Stimulating Hormone 0.67 uIU/mL (0.465-4.68)
== END 2025-03-25 23:59 | disposition home or self-care (01) ==
LOC: LAB 14:44
PROVIDERS: Student in an Organized Health Care Education/Training Program; PCP Family Medicine; Visit Provider Internal Medicine Medical Oncology
DX: D05.11 Intraductal carcinoma in situ of right breast (principal); R79.89 Other specified abnormal findings of blood chemistry
CPT/HCPCS: 36415; 80053; 84439; 84443; 85025

== ENCOUNTER 2025-04-06 12:22 | Outpatient (CLI) | payer MEDICAID, SELFPAY ==
--- OUTSIDE RECORDS SUMMARY | 2025-02-04 14:03 | XMS_ITS | Encounter Summary ---
Author Organization [place] [address] Care Team Providers Care Kiln Door Repairer Name Role Phone Chetna Cedeno MD Primary Care Provider [phone] Arlyn Schmidt MD Unavailable [phone] Tacho Echavarria MD Unavailable [phone] Matt Ulrich MD Unavailable [phone] Eze Brock Unavailable Annette Walker Unavailable [phone] Batool Celis MD Unavailable [phone] Reason for Visit * Reason Comments Follow-up Breast Cancer Encounter Details Date Type Department Care Team (Latest Contact Info) Description 02/04/2025 2:03 PM EDT - 02/04/2025 11:59 PM EDT Hospital Encounter [facility] Medical Oncology [place], [place] [address] Tacho Echavarria MD [address] [place] [address] [phone] Invasive ductal carcinoma of breast, female, right [...] from your doctor or pharmacy? Never 11/07/2023 [facility] Utilities Answer Date Recorded In the past 12 months has e electric, gas, oil, or water company threatened to shut off services in your home? No 07/07/2024 Social Connection and Isolation Panel Answer Date Recorded In a typical week, how [...] Recorded PHQ-2 Total Score 5 07/07/2024 [facility] - Occupational Stress [...] in a retirement (including now)? No 11/07/2023 [facility] IP Transportation Answer D ate [...] Author No 12/06/2022 2:08 PM EDT Macarena Mraion CCMA * Because of a physical, mental [...] this encounter Medications at Time of Discharge albuterol (PROVENTIL HFA;VENTOLIN HFA) 90 mcg/actuation Inhl [...] Tablet by mouth daily. 30 Tablet 5 04/01/2025 10:14 AM EDT 5 BOTOX 200 unit Inj Recon [...] 4 fluticasone propionate (FLONASE) 50 mcg/actuation Nasl Lugoff, Suspension 1 Lugoff by Nasal route daily. 1 Each 11 [...] dose 75 mg/24 hours) 8 Tablet 5 04/01/2025 10:14 AM EDT 5 rOPINIRole (REQUIP) 0.25 mg Oral [...] in pain pump. 60 mcg/day abemaciclib (VERZENIO) 100 mg Oral TabletIndications :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),Chemotherap y-induced nausea Take 1 Tablet by mouth 2 times daily. 56 Tablet 4 03/10/2025 2:43 PM EDT 5 03/25/20 25 abemaciclib (VERZENIO) 50 mg Oral TabletIndications :Invasive [...] note were not included. Patient: El Cole [facility]: [id number] Date of : 1965 Age: 59 y.o. Date of Service: 02/04/2025 HEMATOLOGY/ONCOLOGY FOLLOW UP VISIT Primary Network Support Manager & Oncologist: Tacho Echavarria MD. Patient Care Team: Chetna Cedeno MD as PCP - General Arlyn Schmidt MD as Consulting Physician (Internal Medicine-Endocrinology, Diabetes & Metabolism) Tacho Echavarria MD (Internal Medicine-Medical Oncology) Matt Ulrich MD (Surgery-Surgical Oncology) Eze Brock as Pastoral Care Annette Walker MSW as Slunk Skinner Batool Celis MD as Radiation Oncologist (Radiology-Radiation Oncology) 2nd OPINION [facility] EVAL: , [place], [place]: Dr Beata Kebede: [phone] Next of Kin: Daughter Ruthy Man ([phone]) Patient Contact info: [phone] DIAGNOSIS HISTORY DATE OF INITIAL CONSULTATION: 11/14/23; outside 2nd opinion at on 09/23/2024 CURRENT TREATMENT BREAST CA: adjuvant [place]-E regimen: Aromasin 25mg po daily + dose titration up of Abemacyclib (Verzenio) 50mg po bid -> 100 mg po bid, per NCCN guidelines PE (02/02/25, at [facility]) and 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 Breast, right, 6:00, Invasive ductal carcinoma, grade 3 ER 80%, DE 11%, Her2 negative B. Breast, right, 5:00 Invasive ductal carcinoma grade 3 ER 92%, DE 55%, Her2 negative 11/11/2023 - Consult Initial [...] to GI tolerance for 2 yr planned ([place]-E regimen) 10/2024 - changed to Aromasin d/t [...] Stage ypT3, ypN3a, G3, ER+, DE+, HER2- 02/04/2025 - Other Naya García PA-C [...] CalcPt Dosage Given to Date in Gy 10.55317399 Session Dosage Given in Gy 2.17726270 Reference Point ID LN Boost RP Dosage Given to Date in Gy 10 Session Dosage Given in Gy 1.51992905 Reference Point ID [id number] ISO Dosage Given to Date in Gy 40.76452179 Session Dosage Given in Gy 0.39313998 Plan ID Nd Boost Plan Name Nd [...] mild 11/26/2014 Malignant neoplasm of female breast ([facility]) 10/14/2023 Migraines MS (multiple sclerosis) ([facility]) Pituitary cyst Prediabetes PTSD (post-traumatic stress disorder) Sleep apnea no cpap Uterine prolapse 06/06/2011 PAST SURGICAL HISTORY Past Surgical History: Procedure Laterality Date APPENDECTOMY BREAST BIOPSY Right 10/25/2023 5:00 and 6:00 CHOLECYSTECTOMY GASTRIC BYPASS SURGERY N/A 05/01/2017 LAPAROSCOPIC SLEEVE GASTRECTOMY ; Surgeon: Marcus Perez MD; Location: [facility] MAIN OR; Service: General IR 2 [...] radical mastectomy; Surgeon: Matt Ulrich MD; Location: [facility] MAIN OR; Service:General SPINE SURGERY N/A 01/04/2021 PAIN PUMP PERMANENT IMPLANT; Surgeon: Munir Hilton MD; Location: [facility] MAIN OR; Service: Pain Management THORACIC SPINE SURGERY N/A 02/24/2020 SPINAL CORD STIMULATOR IMPLANT; Surgeon: Munir Hilton MD; Location: [facility] MAIN OR; Service: Pain Management TONSILLECTOMY UPPER GASTROINTESTINAL ENDOSCOPY UPPER GASTROINTESTINAL ENDOSCOPY N/A 01/26/2015 ESOPHAGOGASTRODUODENOSCOPY with biopsy and davis dilation; Surgeon: Stone Cronin MD; Location: [facility]; Service: Endoscopy FAMILY HISTORY Family [...] agent therapy, also [facility]. Now being seen post hospital discharge [...] help with use of Cymbalta. Was at [facility] and wanting to request transfer of [facility] records to oncology clinic there. [...] Device fluticasone propionate (FLONASE) 50 mcg/actuation Nasl Lugoff, Suspension Inhalational Spacing Device (AEROCHAMBER MV) Misc [...] Gran% 0.2 % Lymph Percent 23.4 % [place] Percent 5.7 % Eos Percent 2.1 % Baso Percent 0.2 % Neut # 5.6 1.6 - 6.1 x10(3)/mcL IMMGRAN# 0.0 0.0 - 0.1 x10(3)/mcL Lymph # 1.9 1.2 - 3.9 x10(3)/mcL [place] # 0.5 0.3 - 0.9 x10(3)/mcL Eos# [...] G43.719-Chronic migraine without aura, intractable, without status [id number]. COMPARISON: Multiple priors with the latest MRI [...] Oliva MD Performing Provider Shaylee Roque???LOUIE Restrepo MEN'S GOLF COACH Viv Martinez RN Bone Tender Madelyn Sidhu RN Endoscopy Nurse Aliya Friedman [...] outside facility Neurosurgeon (Dr Benoit Duke at [facility]) and no need for surgical resection now, surveillance plan defined in his note of 02/24/24 noted Chemo induced anemia - as expected, stable cont 1 tab MVI po daily, asked for borderline VIT B12 tostart VIT B12 1000 mcg po daily otc PE/ Prothrombin gene carrier - obtaining records from [facility], meanwhile stay on FDAapproved dosing of [...] Tacho Echavarria MD Hematology and Medical Oncology [facility] [phone] *This note was dictated using voice recognition [...] also performed on this calendar day: d/w Brick Or Block Maker about her care and symptom burden/depression * Rosana Gupta, RN - 02/04/2025 2:20 PM EDT Fax sent to Medical Records at [facility] Request for records from [...] Care Team (Late st Contact Info) Description 04/09/2025 3:00 PM EDT Hospital Encounter [facility] [address] [place] [address] Adryan Rowan MD [address] [facility] [address] [place] [id number] 04/29/2025 9:15 AM EDT Appointment [facility] [place] [address] Batool Celis MD [address] [place] [address] [place] [address] 05/19/2025 2:15 PM EST Office Visit [facility] [place] [address] [place] [address] [address] [place] [address] Sin Tran MD [address] [place] [address] 06/09/2025 12:45 PM EST Procedure visit [facility] [address] [place] [address] MauricioSamm rothman, MAIL ORDER BILLER [address] [place] [address] 08/12/2025 10:40 AM EST Appointment [facility] Women's Well[facility] [place] [address] Matt Ulrich MD [address] [place] [address] [address] [place] [address] documented as of this encounter Goals Goal Patient Goal Type Associated Problems Recent Progress Patient-Stated? Author Blood Pressure < 140/90 Blood Pressure 123/84(03/24 1:35 PM EDT) No Chetna Cedeno MD Breast [facility] Breast Health On track(2024 11:27 AM EDT) No Jasmin Porter, RN Note: Patient acknowledges understanding of new diagnosis, plan of care, available resources and how to contact Nurse Navigator with any future questions or concerns. Breast [facility] Breast Health Not on track(2024 11:27 AM EDT) No Jasmin Porter, RAUL Note: Patient will be compliant with monthly SBE and is aware of who to contact for any unusual or concerning findings. Breast [facility] Breast Health On track(2024 11:27 AM [...] documented as of this encounter Care Teams Kiln Door Repairer Relationship Specialty [place] [address] [place] [id number] PCP - General 06/21/10 03/08/25 Arlyn Schmidt MD [address] [place], [place] [id number] Consulting Physician Internal Medicine-Endocrinology, Diabetes & Metabolism 11/28/20 Tacho Echavarria MD 1 [place] [address] Internal Medicine-Medical Oncology 11/12/23 Matt Ulrich MD 1 [place], [place] [id number] Surgery-Surgical Oncology 12/04/23 Eze Brock Pastoral Care 12/13/23 Annette Walker, ARACELI Slunk Skinner 05/13/24 Batool Celis MD [address] [facility] [place], [place] [id number] Radiation Oncologist Radiology-Radiation Oncology 06/08/24 documented as of this encounter
--- OUTSIDE RECORDS SUMMARY | 2025-02-10 10:30 | XMS_ITS | Encounter Summary ---
Author [place] [address] Care Team Providers Care Crabbing Machine Operator Name Role Phone Chetna Cedeno MD Primary Care Provider [phone] Arlyn Schmidt MD Unavailable [phone] Tacho Echavarria MD Unavailable [phone] Matt Ulrich MD Unavailable [phone] Eze Brock Unavailable Annette Walker Unavailable [phone] Batool Celis MD Unavailable [phone] Reason for Visit * Reason Comments Follow-up Pump Refill Encounter Details Date Type Department Care Team (Late st Contact Info) Description 02/10/2025 10:30 AM EDT Office Visit [facility] Spine [address] [address] Sin Tran MD [address] [place] [address] Chronic pain syndrome (Primary Dx); Post [...] Date Recorded PHQ-2 Total Score 5 07/07/2024 [facility] Occupat ional [facility] - Occupational Stress Questionnaire Answer Date Recorded [...] a skilled nursing (including now)? No 11/07/2023 [facility] IP Transportation Answer D ate Recorded [...] No edema, warmth, erythema, or fluctuance. The VuCOMP analyzer was used to interrogate the SynchroMed [...] well Sin Tran MD Interventional Pain Management [facility] documented in this encounter Plan of Treatment Upcoming Encounters Date Type Department Care Team (Late st Contact Info) Description 04/09/2025 3:00 PM EDT Hospital Encounter [facility] [address] [place] [address] Adryan Rowan MD 14[address] [facility] [address] [place] [address] 04/29/2025 9:15 AM EDT Appointment [facility] [place] [address] Batool Celis MD [address] [place] [address] [place] [address] 05/19/2025 2:15 PM EST Office Visit [facility] 49[address] [facility] [address] [place] [address] Sin Tran MD 4900 [place] [address] 06/09/2025 12:45 PM EST Procedure visit [facility] [address] [place] [address] Samm Ledesma, DIGITAL ACCOUNT EXECUTIVE [address] [facility] [address] [place] [address] 08/12/2025 10:40 AM EST Appointment [facility] Women's Wellness [place] One [facility] [place] [address] Matt Ulrich MD [address] [place] [address] [address] [place] [address] documented as of this encounter Goals Goal [...] documented as of this encounter Care Teams Crabbing Machine Operator Relationship Specialty [place] [address] [address] [facility] [place] [address] PCP - General 06/21/10 03/08/25 Arlyn Schmidt MD [address] [place] [address] Consulting Physician Internal Medicine-Endocrinology, Diabetes & Metabolism 11/28/20 Tacho Echavarria MD 1 [place] [address] Internal Medicine-Medical Oncology 11/12/23 Matt Ulrich MD 1 [place], [place] [id number] Surgery-Surgical Oncology 12/04/23 Eze Brock Pastoral Care 12/13/23 Annette Walker, ARACELI [employer] 05/13/24 Batool Celis MD 1 [facility] [place] [address] Radiation Oncologist Radiology-Radiation Oncology 06/08/24 documented as of this encounter
--- OUTSIDE RECORDS SUMMARY | 2025-03-10 13:30 | XMS_ITS | Encounter Summary ---
Author [place] [address] Care Team Providers Care Poultry Picking Machine Tender Name Role Phone Arlyn Schmidt MD Unavailable [phone] Tacho Echavarria MD Unavailable [phone] Matt Ulrich MD Unavailable [phone] Eze Brock Unavailable Annette Walker FORENSIC IDENTIFICATION SPECIALIST Unavailable [phone] Batool Celis MD Unavailable [phone] Ayush Marrero MD Primary Care Provider [phone] Reason for Visit * In Office Procedure (Routine) - PCP Precert Acquired Specialty Diagnoses / Procedures Referred By Van t Referred To Contact Neurology Diagnoses Chronic migraine without aura, intractable, with status migrainosus Procedures BOTOX COMMUNICATION ORDER FL INJECTION,ONABOTULINUMTOXINA FL CHEMODERVATE FACIAL/TRIGEM/CERV MUSC MIGRAINE Samm Ledesma, CHEMIST BIOLOGICAL [address] [address] Phone: tel: fax: Samm Ledesma, CHEMIST BIOLOGICAL [address] [place] [address] Phone: tel: fax: Referral ID Status Reason Start Date Expiration Date V isits Requested Visits Authorized [id number] PCP Precert Acquired 03/10/2025 03/10/2026 1 4 Encounter Details Date Type Department Care Team (Late st Contact Info) Description 03/10/2025 1:30 PM EDT Procedure visit [facility] [address] [place] [address] Krissy Rhodes, CHEMIST BIOLOGICAL [address] [place] [address] Chronic migraine without aura, intractable, [...] Recorded In the past 12 months has [employer] electric, gas, oil, or water [employer] threatened to shut off services in your home? No 07/07/2024 Social Connection and Isolation Panel Answer Date Recorded In a typical week, how many times do you talk on the phone with family, friends, or neighbors? Once a week 11/07/19 How often do you get togethe r with friends or relatives? Once a week 11/07/2023 How often do you attend chur or quaker services? 1 to 4 times [...] 5 07/07/2024 [facility] [place] of Occupat ional Health - Occupational Stress [...] in the past 12 m [facility], were you homeless or living in a jail (including now)? No 11/07/2023 [facility] IP Transportation Answer [...] Rhodes APRN - 03/10/2025 1:30 PM EDT [facility] Neurology Neurology Outpatient Progress Note [...] Botox provided by: sample Botox Lot number: [id number] EXP 06/2026 [facility] # [id number] Saline Lot number: [id number] EXP 06/2026 IMPRESSION: Repeat botox injection. Will [...] Description 04/09/2025 3:00 PM EDT Hospital Encounter [facility] [address] [place] [address] Adryan Rowan MD [address] [facility] [address] [place] [address] 04/29/2025 9:15 AM EDT Appointment [facility] ONC [place], [place] [address] Batool Celis MD [address] [place] [address] [place] [address] 05/19/2025 2:15 PM EST Office Visit [facility] [address] [facility] [address] [place] [address] Sin Tran MD [address] [place] [address] 06/09/2025 12:45 PM EST Procedure visit [facility] [address] [facility] [address] [place], [place] [address] Samm Ledesma, CHEMIST BIOLOGICAL [address] [place], [place] [address] 08/12/2025 10:40 AM EST Appointment [facility] Women's Wellness [facility] [place] [address] Matt Ulrich MD [address] [place] [address] [address] [place] [address] documented as of this encounter Goals Goal Patient Goal Type Associated Problems Recent Progress Patient-Stated? Author Blood Pressure < 140/90 Blood Pressure 123/84(03/24 1:35 PM EDT) Chetna Hsu MD Breast Health Breast Health On track(2024 11:27 AM EDT) No Jasmin Porter RN Note: Patient acknowledges understanding of new diagnosis, plan of care, available resources and how to contact Nurse Navigator with any future questions or concerns. [facility] Breast Health Not on track(2024 11:27 AM EDT) No Jasmin Porter RN Note: Patient will be compliant with monthly SBE and is aware of who to contact for any unusual or concerning findings. Breast [facility] Breast Health On track(2024 11:27 AM [...] as of this encounter Care Teams Poultry Picking Machine Tender Relationship Specialty Start Date End Date Ayush Marrero MD [address] [place] [address] PCP - General Family Medicine 03/09/25 Arlyn Schmidt MD [facility] [place] [address] Consulting Physician Internal Medicine-Endocrinology, Diabetes & Metabolism 11/28/20 Tacho Echavarria MD 1 [place] [address] Internal Medicine-Medical Oncology 11/12/23 Matt Ulrich MD 1 [place] [address] Surgery-Surgical Oncology 12/04/23 Eze Brock Pastoral Care 12/13/23 Annette Walker, FORENSIC IDENTIFICATION SPECIALIST Application Tester 05/13/24 Batool Celis MD 1 [facility] [place] [address] Radiation Oncologist Radiology-Radiation Oncology 06/08/24 documented as of this encounter
--- OUTSIDE RECORDS SUMMARY | 2025-03-18 07:20 | XMS_ITS | Encounter Summary ---
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 Procedures PET CT SKULL BASE TO MID THIGH Adryan Rowan MD [address] [place] [address] Phone: tel: fax: [facility] [place] [address] Phone: tel: fax: Referral ID Status Reason Start Date Expiration Date V isits Requested Visits Authorized [id number] Authorized 03/15/2025 03/15/2026 5 5 Reason for Visit * MRI/CAT Scan (Emergency) - Authorized Specialty Diagnoses / Procedures Referred By Van butler Referred To Contact Radiology Diagnoses 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 Procedures PET CT SKULL BASE TO MID THIGH Adryan Rowan MD [address] [place] [address] Phone: tel: fax: [facility] [place] [address] Phone: tel: fax: Referral ID Status Reason Start Date Expiration Date V isits Requested Visits Authorized [id number] Authorized 03/15/2025 03/15/2026 5 5 Encounter Details Date Type Department Care Team (Late st Contact Info) Description 03/18/2025 7:20 AM EDT - 03/18/2025 11:59 PM EDT Hospital Encounter [facility] [place] [address] Adryan Rowan MD [address] [facility] [address] [place] [address] Malignant neoplasm of axillary tail [...] Recorded In the past 12 months has [employer] electric, gas, oil, or water company threatened [...] [facility] of Occupat ional [facility] - Occupational Stress Questionnaire Answer Date [...] halfway (including now)? No [facility] IP [...] 4 fluticasone propionate (FLONASE) 50 mcg/actuation Nasl [place], Suspension 1 [place] by Nasal route daily. 1 Each 11 [...] Description 04/09/2025 3:00 PM EDT Hospital Encounter [facility] [address] [place] [address] Adryan Rowan MD [address] [facility] [address] [place] [address] 04/29/2025 9:15 AM EDT Appointment [facility] [address] Batool Celis MD [address] [place] [address] [facility]ARE [facility] [place], [place] [id number] 05/19/2025 2:15 PM EST Office Visit [facility] [address] [facility] [address] [place] [address] [place] [address] [place] [address] 06/09/2025 12:45 PM EST Procedure visit [facility] [address] [place] [address] Samm Ledesma, MANAGER SOLUTION [address] [place] [address] 08/12/2025 10:40 AM EST Appointment [facility] Women's Wellness [place] [address] Matt Ulrich MD [address] [place] [address] [address] [place] [address] documented as of this encounter Goals Goal [...] with any future questions or concerns. Breast [facility] Breast Health Not on track(2024 11:27 AM EDT) No Jasmin Porter, RAUL Note: Patient will be compliant with monthly SBE and is aware of who to contact for any unusual or concerning findings. Breast [facility] Breast Health On track(2024 11:27 AM [...] (HCC)-ICD-10-CM D05.11-Intraductal carcinoma in situ of right mksvyf-ONO-41-CM COMPARISON: PET/CT 11/09/2024. PROCEDURE COMMENTS: 14.7 mCi [...] (HCC)-ICD-10-CM D05.11-Intraductal carcinoma in situ of right jxsogi-WTF-11-CM COMPARISON: PET/CT 11/09/2024. PROCEDURE COMMENTS: 14.7 mCi [...] left scapular lesion, compatible with metastatic disease Adryan Rowan MD IMG PET ORDERABLES Final Resul t * (ABNORMAL) GLUCOSE METER POC (03/18/2025 7:23 AM EDT) [facility] Glucose Meter POC 101(H) 70 - 100 mg/dL 03/18/2025 7:26 AM EDT [facility] Sample Type Capillary 03/18/2025 7:26 AM EDT [facility] Patient Status Non-Critical Patient 03/18/2025 7:26 AM EDT [facility] Blood BLOOD SPECIMEN / Unknown 03/18/2025 7:23 AM EDT 03/18/2025 7:26 AM EDT us Adryan Rowan MD POINT OF CARE TEST ORDERABLES Final Result [facility] [address] [place], [place] [id number] documented in this encounter Visit Diagnoses Diagnosis [...] documented as of this encounter Care Teams Chief Cardiopulmonary Technologist Relationship Specialty Start Date End Date Ayush Marrero MD [address] [place] [address] PCP - General Family Medicine 03/09/25 Arlyn Schmidt MD [address] [place] [address] Consulting Physician Internal Medicine-Endocrinology, Diabetes & Metabolism 11/28/20 Tacho Echavarria MD [address] [place] [phone] Internal Medicine-Medical Oncology 11/12/23 Matt Ulrich MD 1 [place] [address] Surgery-Surgical Oncology 12/04/23 Eze Brock Pastoral Care 12/13/23 Annette Walker, STEAM PIPE FITTER Chlorine Cell Tender 05/13/24 Batool Celis MD 1 [facility] [place] [address] Radiation Oncologist Radiology-Radiation Oncology 06/08/24 documented as of this encounter
--- OUTSIDE RECORDS SUMMARY | 2025-03-24 13:15 | XMS_ITS | Encounter Summary ---
Author Organization [place] [address] Care Team Providers Care Fruit Vendor Name Role Phone Arlyn Schmidt MD Unavailable [phone] Tacho Echavarria MD Unavailable [phone] Matt Ulrich MD Unavailable [phone] Eze Brock Unavailable Annette Walker VOYAGE MANAGEMENT SYSTEM OPERATOR Unavailable [phone] Batool Celis MD Unavailable [phone] Ayush Marrero MD Primary Care Provider [phone] Encounter Details Date Type Department Care Team (Latest Contact Info) Description 03/24/2025 1:15 PM EDT - 03/24/2025 1:32 PM EDT Hospital Encounter [facility] [place], [place] [phone] Tacho Echavarria MD [address] [place] [address] [phone] Invasive ductal carcinoma of breast, female, right [...] group home (including now)? No 11/07/2023 [facility] IP Transportation [...] 4 fluticasone propionate (FLONASE) 50 mcg/actuation Nasl [place], Suspension 1 [place] by Nasal route daily. 1 Each 11 [...] Description 04/09/2025 3:00 PM EDT Hospital Encounter [facility] [address] [place] [address] Adryan Rowan MD [address] [place] [address] 04/29/2025 9:15 AM EDT Appointment [place] [address] Batool Celis MD [address] [place] [address] [place] [address] 05/19/2025 2:15 PM EST Office Visit [facility] [address] [facility] [address] [place] [address] Sin Tran MD [address] [place] [address] 06/09/2025 12:45 PM EST Procedure visit [facility] [address] [facility] [address] [place] [address] Samm Ledesma, SEAM SEWER [address] [facility] [address] [place] [address] 08/12/2025 10:40 AM EST Appointment [facility] Women's Wellness [facility] [place] [address] Matt Ulrich MD [address] [place] [address] [address] [place] [address] documented as of this encounter Goals Goal Patient Goal Type Associated Problems Recent Progress Patient-Stated? Author Blood Pressure < 140/90 Blood Pressure 123/84(03/24 1:35 PM EDT) No Chetna Cedeno MD Breast [facility] On track(2024 11:27 AM EDT) No Jasmin Porter, RAUL Note: Patient acknowledges understanding of new diagnosis, plan of care, available resources and how to contact Nurse Navigator with any future questions or concerns. [facility] Not on track(2024 11:27 AM EDT) No Jasmin Porter, RAUL Note: Patient will be compliant with monthly SBE and is aware of who to contact for any unusual or concerning findings. [facility] On track(2024 11:27 AM EDT) No Demi [...] as of this encounter Care Teams Fruit Vendor Relationship Specialty Start Date End Date Ayush Marrero MD [address] [place] [id number] PCP - General Family Medicine 03/09/25 Arlyn Schmidt MD [address] [place] [address] Consulting Physician Internal Medicine-Endocrinology, Diabetes & Metabolism 11/28/20 Tacho Echavarria MD 1 [place] [address] Internal Medicine-Medical Oncology 11/12/23 Matt Ulrich MD 1 [place] [address] Surgery-Surgical Oncology 12/04/23 Eze Brock Pastoral Care 12/13/23 Annette Walker MSW Gill Tender 05/13/24 Batool Celis MD [address] [place] [address] [place] [address] Radiation Oncologist Radiology-Radiation Oncology 06/08/24 documented as of this encounter
--- OUTSIDE RECORDS SUMMARY | 2025-03-24 13:33 | XMS_ITS | Encounter Summary ---
Author Organization [place] [address] Care Team Providers Care First Line Production Supervisor Name Role Phone Arlyn Schmidt MD Unavailable [phone] Tacho Echavarria MD Unavailable [phone] Matt Ulrich MD Unavailable [phone] Eze Brock Unavailable Annette Walker ORDER PULLER Unavailable [phone] Batool Celis MD Unavailable [phone] Ayush Marrero MD Primary Care Provider [phone] Reason for Visit * Reason Comments Follow-up Breast Cancer I would like to revi ew my PET scan results and I would like to move my care to Dr Rowan closer to me in [place]. Can you please speak with him? Encounter Details Date Type Department Care Team (Latest Contact Info) Description 03/24/2025 1:33 PM EDT - 03/24/2025 11:59 PM EDT Hospital Encounter [place] [address] Tacho Echavarria MD [address] [place] [address] Invasive ductal carcinoma of breast, female, [...] In the past 12 months has e [employer], gas, oil, or water [employer] threatened to shut off services in your [...] Total Score 5 07/07/2024 [facility] [place] of Occupat ional Health - Occupational Stress [...] in a snf (including now)? No 11/07/2023 [facility] IP Transportation Answer D ate Recorded [...] 4 fluticasone propionate (FLONASE) 50 mcg/actuation Nasl [place], Suspension 1 [place] by Nasal route daily. 1 Each 4 [...] were not included. Patient: Meri [place] CSN: [id number] Date of : 1965 Age: 59 y.o. Date of Service: 03/24/2025 HEMATOLOGY/ONCOLOGY FOLLOW UP VISIT Primary Extracorporeal Technician & Oncologist: Tacho Echavarria MD. Patient Care Team: Ayush Marrero MD as PCP - General (Family Medicine) Arlyn Schmidt MD as Consulting Physician (Internal Medicine-Endocrinology, Diabetes & Metabolism) Tacho Echavarria MD (Internal Medicine-Medical Oncology) Matt Ulrich MD (Surgery-Surgical Oncology) Eze Brock as Pastoral Care Annette Walker, ARACELI as Svp Of Digital Batool Celis MD as Radiation Oncologist (Radiology-Radiation Oncology) 2nd OPINION [facility] EVAL: , [place], [place]: Dr Beata Kebede: [phone] [facility] at [facility]: Dr Adryan Rowan (clinc [phone]; cell: [phone]) Next of Kin: Daughter Ruthy Man ([phone]) Patient Contact info: [phone] DIAGNOSIS HISTORY DATE OF INITIAL CONSULTATION: 11/14/23; outside 2nd opinion at on 09/23/2024 CURRENT TREATMENT Mets BREAST CA: pending establishment of out pt care as pt desires to move care closer to home in [place], [place] with Dr Marcus Rowan PE (02/02/25, at [facility]) and 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 Breast, right, 6:00, Invasive ductal carcinoma, grade 3 ER 80%, MT 11%, Her2 IHC 1+ B. Breast, right, [...] to GI tolerance for 2 yr planned ([place]-E regimen) 10/2024 - changed to Aromasin d/t [...] Stage ypT3, ypN3a, G3, ER+, MT+, HER2- 02/04/2025 - Other Naya García PA-C reviewed SCP and surveillance/imaging recommendations with patient. Patient andcare team received copy. 03/18/2025 - Referrals 03/18/25 - PET with multifocal hypermetabolic intrathoracic lymphadenopathy and new hypermetabolic left scapular lesion, compatible with metastatic disease -> pt would like to move care to [facility], Dr Raleigh Rowan for palliative frontline tx [...] CalcPt Dosage Given to Date in Gy 10.72305693 Session Dosage Given in Gy [id number] Reference Point ID LN Boost RP Dosage Given to Date in Gy 10 Session Dosage Given in Gy [id number] Reference Point ID [id number] ISO Dosage Given to Date in Gy 40.08238219 Session Dosage Given in Gy 0.30996435 Plan ID BH Nd Boost Plan Name [...] radical mastectomy; Surgeon: Matt Ulrich MD; Location: [facility] MAIN OR; Service:General SPINE SURGERY N/A 01/04/2021 PAIN PUMP PERMANENT IMPLANT; Surgeon: Munir Hilton MD; Location: [facility] MAIN OR; Service: Pain Management THORACIC SPINE SURGERY N/A 02/24/2020 SPINAL CORD STIMULATOR IMPLANT; Surgeon: Munir Hilton MD; Location: [facility] MAIN OR; Service: Pain Management TONSILLECTOMY UPPER GASTROINTESTINAL ENDOSCOPY UPPER GASTROINTESTINAL ENDOSCOPY N/A 01/26/2015 ESOPHAGOGASTRODUODENOSCOPY with biopsy and davis dilation; Surgeon: Stone Cronin MD; Location: [facility] ENDOSCOPY; Service: Endoscopy FAMILY HISTORY Family [...] op ddAC/Taxane chemo for her high risk ER/MT positive large RIGHT BREAST Carcinoma. She has had significant barriers to self case and social support, here for assistance and updates on rest of her care plan. Aware about PET results, since now living an hour and half away, came to [facility] closer to her home in [place], [place]. Update (03/24/2025): Ms Cole comes in [...] of Cymbalta. Seeing Dr Adryan Rowan at [facility] and wanting to request transfer of [facility] [...] Device fluticasone propionate (FLONASE) 50 mcg/actuation Nasl [place], Suspension Inhalational Spacing Device (AEROCHAMBER MV) Misc [...] Gran% 0.3 % Lymph Percent 28.2 % [place] Percent 8.5 % Eos Percent 1.3 % Baso Percent 1.3 % Neut # 2.3 1.6 - 6.1 x10(3)/mcL IMMGRAN# 0.0 0.0 - 0.1 x10(3)/mcL Lymph # 1.1 (L) 1.2 - 3.9 x10(3)/mcL [place] # 0.3 0.3 - 0.9 x10(3)/mcL Eos# [...] G43.719-Chronic migraine without aura, intractable, without status azbumhtkcwy-PTC-46-CM. 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 PROCEDURE COMMENTS: 14.7 mCi [...] Mar 2025 with new multifocal mets disease onPET, desirous to continue palliative treatments to prolong [...] facility Neurosurgeon (Dr Benoit Duke at [facility]) and no need for surgical resection now, surveillance plan defined in his note of 02/24/24 noted Chemo induced anemia - HGB 9.7 now, cont 1 tab MVI po daily, asked for borderline VIT B12 to start VIT B12 1000 mcg po daily otc PE/ Prothrombin gene carrier - obtaining records from [facility], meanwhile stay on FDAapproved dosing of [...] closer to home and we contacted him ([phone]) to proceed with care transfer and update on PET, see her sooner Please call if any questions about Mrs Cole's care. Tacho Echavarria MD Hematology and Medical Oncology [facility] [phone] Time-Based Billing Statement: I spent 42 minutes [...] day: calling office of Dr Adryan ROWAN ([phone]) documented in this encounter Miscellaneous Notes * Addendum Note - Tacho Echavarria MD - 03/24/2025 1:40 PM EDTEncounter addended by: Tacho Echavarria MD on: 03/25/2025 12:55 PM Actions taken: Clinical Note Signed documented in this encounter Plan of Treatment Upcoming Encounters Date Type Department Care Team (Late st Contact Info) Description 04/09/2025 3:00 PM EDT Hospital Encounter [facility] [address] [place] [address] Adryan Rowan MD [address] [facility] [address] [place] [address] 04/29/2025 9:15 AM EDT Appointment [facility] [place] [address] Batool Celis MD 1 [facility] [place] [address] 05/19/2025 2:15 PM EST Office Visit [facility] [address] [place] [address] [address] [place] [address] Sin Tran MD [address] [place] [address] 06/09/2025 12:45 PM EST Procedure visit [facility] [address] [place] [address] Samm Ledesma, COAT CHECKER [address] [place] [address] 08/12/2025 10:40 AM EST Appointment [facility] Women's Wellness [facility] [place] [address] Matt Ulrich MD [address] [place] [address] [address] [place] [address] documented as of this encounter Goals Goal Patient Goal Type Associated Problems Recent Progress Patient-Stated? Author Blood Pressure < 140/90 Blood Pressure 123/84(03/24 1:35 PM EDT) No Chetna Cedeno MD Breast [facility] Breast Health On track(2024 11:27 AM EDT) No Jasmin Porter, RAUL Note: Patient acknowledges understanding of new diagnosis, plan of care, available resources and how to contact Nurse Navigator with any future questions or concerns. Breast [facility] Not on track(2024 11:27 AM EDT) No Jasmin Porter, RAUL Note: Patient will be compliant with monthly SBE and is aware of who to contact for any unusual or concerning findings. Breast [facility] Breast Health On track(2024 11:27 [...] - 145 mmol/L 03/24/2025 1:58 PM EDT [facility] Potassium 3.8 3.5 - 5.0 mmol/L 03/24/2025 1:58 PM EDT [facility] Chloride 104 98 - 107 mmol/L 03/24/2025 1:58 PM EDT [facility] Total CO2 23 22 - 29 mmol/L 03/24/2025 1:58 PM EDT [facility] Anion Gap 13 7 - 16 mmol/L 03/24/2025 1:58 PM EDT [facility] Calcium 9.1 8.6 - 10.4 mg/dL 03/24/2025 1:58 PM EDT [facility] Glucose Lvl 114(H) 70 - 99 mg/dL 03/24/2025 1:58 PM EDT [facility] BUN 14 6 - 20 mg/dL 03/24/2025 1:58 PM EDT [facility] Creatinine 0.81 0.51 - 1.30 mg/dL 03/24/2025 1:58 PM EDT [facility] Albumin 3.9 3.5 - 5.2 gm/dL 03/24/2025 1:58 PM EDT [facility] Total Protein 6.4 6.4 - 8.3 gm/dL 03/24/2025 1:58 PM EDT [facility] Bili Total 0.4 0.2 - 1.3 mg/dL 03/24/2025 1:58 PM EDT [facility] ALT 8 <=41 U/L 03/24/2025 1:58 PM EDT [facility] AST 14 <=40 U/L 03/24/2025 1:58 PM EDT [facility] Alk Phos 146(H) 36 - 123 U/L 03/24/2025 1:58 PM EDT [facility] eGFR (CKD-EPIcr 2020) 84 >=60 mL/min/1.7 3 m2 03/24/2025 1:58 PM EDT [facility] Comment:Estimated GFR was ca lculated using the CKD-EPIcr (2020) equation refit without race. The equation is recommended by the National Kidney Foundation - [place] [employer] of Nephrology Task Force. Blood VENOUS STRUCTURE / Unknown Port / Unknown 03/24/2025 1:29 PM EDT 03/24/2025 1:36 PM EDT Tacho Echavarria MD CHEMISTRY ORDERABLES Final Result [facility] [address] [place] [id number] * (ABNORMAL) CBC WITH DIFF (03/24/2025 1:29 PM EDT) WBC 3.9 3.7 - 10.3 x10(3)/mc L 03/24/2025 1:40 PM EDT [facility] RBC 2.92(L) 3.90 - 5.20 x10(6)/mc L 03/24/2025 1:40 PM EDT [facility] Hgb 9.7(L) 11.2 - 15.7 g/dL 03/24/2025 1:40 PM EDT [facility] Hct 28.2(L) 34.0 - 45.0 % 03/24/2025 1:40 PM EDT [facility] MCV 96.6 80.0 - 100.0 fL 03/24/2025 1:40 PM EDT [facility] MCH 33.2 26.0 - 34.0 pg 03/24/2025 1:40 PM EDT [facility] MCHC 34.4 30.7 - 35.5 g/dL 03/24/2025 1:40 PM EDT [facility] RDW 13.7 <=14.9 % 03/24/2025 1:40 PM EDT [facility] Platelet 197 155 - 369 x10(3)/mc L 03/24/2025 1:40 PM EDT [facility] MPV 8.9 8.8 - 12.5 fL 03/24/2025 1:40 PM EDT [facility] Neut # Prelim 2.3 1.6 - 6.1 x10(3)/mc L 03/24/2025 1:40 PM EDT [facility] Comment:Preliminary automate d absolute neutrophil count. Value may change if manual differential is indicated. Neut Percent 60.4 % 03/24/2025 1:40 PM EDT [facility] Comment:Neutrophils equals s egs plus bands Imm Gran% 0.3 % 03/24/2025 1:40 PM EDT [facility] Comment:Automated count of m etamyelocytes, myelocytes and promyelocytes. Lymph Percent 28.2 % 03/24/2025 1:40 PM EDT [facility] [place] Percent 8.5 % 03/24/2025 1:40 PM EDT [facility] Eos Percent 1.3 % 03/24/2025 1:40 PM EDT [facility] Baso Percent 1.3 % 03/24/2025 1:40 PM EDT [facility] Neut # 2.3 1.6 - 6.1 x10(3)/mc L 03/24/2025 1:40 PM EDT [facility] Comment:Neutrophils equals s egs plus bands IMMGRAN# 0.0 0.0 - 0.1 x10(3)/mc L 03/24/2025 1:40 PM EDT [facility] Comment:Automated count of m etamyelocytes, myelocytes and promyelocytes. An absolute IG <0.1 is reported as 0.0. Lymph # 1.1(L) 1.2 - 3.9 x10(3)/mc L 03/24/2025 1:40 PM EDT [facility] [place] # 0.3 0.3 - 0.9 x10(3)/mc L 03/24/2025 1:40 PM EDT [facility] Eos# 0.1 0.0 - 0.5 x10(3)/mc L 03/24/2025 1:40 PM EDT [facility] Baso # 0.1 0.0 - 0.1 x10(3)/mc L 03/24/2025 1:40 PM EDT [facility] Blood VENOUS STRUCTURE / Unknown Port / Unknown 03/24/2025 1:29 PM EDT 03/24/2025 1:35 PM EDT Tacho Echavarria MD HEMATOLOGY ORDERABLES Final Result [facility] [address] [place] [address] documented in this encounter Visit Diagnoses Diagnosis [...] as of this encounter Care Teams First Line Production Supervisor Relationship Specialty Start Date End Date Ayush Marrero MD [address] [place] [address] PCP - General Family Medicine 03/09/25 Arlyn Schmidt MD [address] [place] [address] Consulting Physician Internal Medicine-Endocrinology, Diabetes & Metabolism 11/28/20 Tacho Echavarria MD 1 [place] [address] Internal Medicine-Medical Oncology 11/12/23 Matt Ulrich MD [address] [place] [address] Surgery-Surgical Oncology 12/04/23 Eze Brock Pastoral Care 12/13/23 Annette Walker, ARACELI Svp Of Digital 05/13/24 Batool Celis MD [address] [place] [address] Radiation Oncologist Radiology-Radiation Oncology 06/08/24 documented as of this encounter
--- OUTSIDE RECORDS SUMMARY | 2025-04-06 12:26 | XMS_ITS | Encounter Summary ---
Author Organization [place] [address] Care Team Providers Care Travel Assistant Name Role Phone Chetna Cedeno MD Primary Care Provider [phone] Arlyn Schmidt MD Unavailable [phone] Tacho Echavarria MD Unavailable [phone] Matt Ulrich MD Unavailable [phone] Eze Brock Unavailable Cheryl Nair RN Unavailable [phone] Annette Walker [employer] Unavailable [phone] Batool Celis MD Unavailable [phone] Ayush Marrero MD Primary Care Provider [phone] Encounter Details Date Type Department Care Team (Late st Contact Info) Description 09/11/2024 Lab Requisition [facility] [place] [address] Beata Kebede MD [address] [place] [address] Social History Tobacco Use Types Packs/Day Years [...] Total Score 5 07/07/2024 [facility] - Occupational Stress Questionnaire Answer Date [...] now)? No 11/07/2023 [facility] IP Transportation Answer D ate [...] Hensno CCMA * Does this person have serious [...] Description 04/09/2025 3:00 PM EDT Hospital Encounter [facility] [address] [place] [address] Adryan Rowan MD [address] [facility] [address] [place] [address] 04/29/2025 9:15 AM EDT Appointment [place] [address] Batool Celis MD [address] [place] [address] CANCER CARE [place], [place] [id number] 05/19/2025 2:15 PM EST Office Visit [facility] [address] [facility] [address] [place] [address] [place] [address] [place] [address] 06/09/2025 12:45 PM EST Procedure visit [facility] [address] [facility] [address] [place] [address] Samm Ledesma APRN [address] [facility] [facility] [address] [place], [place] [id number] 08/12/2025 10:40 AM EST Appointment [facility]'s [facility] [place] [address] Matt Ulrich MD [address] [place] [address] DR VIGIL Zari [facility] [address] documented as of this encounter Goals Goal [...] EST) CASE REPORT Surgical Pathology Report Case: [id number] Authorizing Provider: Beata Kebede MD Collected: 09/11/2024 1313 Ordering Location: [facility] Received: 09/11/2024 1313 Pathologist: Diane Ellis MD Specimen: Breast, Request for cases [id number], [id number] slides to [facility]. 09/15/2024 12:14 PM EDT [facility] FINAL DIAGNOSIS Results will be scanned in this case as an addendum. 09/15/2024 12:14 PM EDT [facility] at 1338 EST EMBEDDED IMAGES 09/15/2024 12:14 PM EDT [facility] ADDENDUM Refer to Scanned [facility] Report for [id number] & [id number]. 09/15/2024 12:14 PM EDT [facility] Addendum electronically signed by Diane Ellis MD on 09/15/2024 at 1214 EDT Tissue BREAST STRUCTURE / Unknown 09/11/2024 1:13 PM EST 09/11/2024 1:13 PM EST us Beata Kebede MD PATHOLOGY ORDERABLES Edited R esult - Final [facility] [address] [place] [id number] documented in this encounter Visit Diagnoses Not on filedocumented in this encounter Additional Health Concerns Infection Onset Date Last Indicated Resolved Time COVID-19 09/04/2024 09/04/2024 09/24/2024 10:1 2 PM EDT Assessment Noted Time PHQ-9 Depression Total Score: 17 024 8:39 AM EST PHQ-2 Depression Total Score: 5 07/07/20 24 8:39 AM EST documented as of this encounter Care Teams Travel Assistant Relationship Specialty [place] [address] [place] [address] PCP - General 06/21/10 03/08/25 Ayush Marrero MD [address] [place] [address] PCP - General Family Medicine 03/09/25 Arlyn Schmidt MD [address] [place] [address] Consulting Physician Internal Medicine-Endocrinology , Diabetes & Metabolism 11/28/20 Tacho Echavarria MD [address] [place] [id number] Internal Medicine-Medical Oncology 11/12/23 Matt Ulrich MD 1 [place] [address] Surgery-Surgical Oncology 12/04/23 Eze Brock Pastoral Care 12/13/23 Cheryl Nair, RN Oncology Nurse Navigator 03/25/2412/13 Annette Walker, ARACELI Broomcorn Thresher 05/13/24 Batool Celis MD 1 [facility] CANCER CARE [place] [id number] Radiation Oncologist Radiology-Radiation Oncology 06/08/24 documented as of this encounter
--- OUTSIDE RECORDS SUMMARY | 2025-04-06 12:26 | XMS_ITS | Encounter Summary ---
Author Organization [place] [address] Care Team Providers Care Day Haul Or Farm Charter Bus Driver Name Role Phone Chetna Cedeno MD Primary Care Provider [phone] Arlyn Schmidt MD Unavailable [phone] Tacho Echavarria MD Unavailable [phone] Matt Ulrich MD Unavailable [phone] Eze Brock Unavailable Annette Walker Unavailable [phone] Batool Celis MD Unavailable [phone] Ayush Marrero MD Primary Care Provider [phone] Reason for Referral * In Office Procedure (Routine) - PCP Precert Acquired Specialty Diagnoses / Procedures Referred By Van t Referred To Contact Neurology Diagnoses Chronic migraine without aura, intractable, with status migrainosus Procedures BOTOX COMMUNICATION ORDER CA INJECTION,ONABOTULINUMTOXINA CA CHEMODERVATE FACIAL/TRIGEM/CERV MUSC MIGRAINE Samm Ledesma, HYDRAMATIC MECHANIC [address] [place] [address] Phone: tel: fax: Samm Ledesma, HYDRAMATIC MECHANIC [address] [place] [address] Phone: tel: fax: Referral ID Status Reason Start Date Expiration Date V isits Requested Visits Authorized [id number] PCP Precert Acquired 03/10/2025 03/10/2026 1 4 Reason for Visit * Reason Onset Date Comments Botox Injection 01/01/2025 ~03/02/2025 Encounter Details Date Type Department Care Team (Late st Contact Info) Description 01/01/2025 Patient Outreach [facility] [address] [facility] [address] [place] [address] Samm Ledesma APRN [address] [place] [address] Botox Injection (~03/02/2025 ) Social [...] has e electric, gas, oil, or water [employer] threatened to shut off services in your [...] 5 07/07/2024 [facility] - Occupational Stress Questionnaire [...] in a intermediate (including now)? No 11/07/2023 [facility] IP Transportation Answer D ate [...] Entry Date Author No 12/06/2022 2:08 PM OBEDT Macarena Marion CCMA documented in this encounter Miscellaneous Notes * Addendum Note - Saniya Mcintosh RMA - 03/09/2025 9:10 AM EDTAddended by: SANIYA MCINTOSH on: 03/09/2025 09:10 AM Modules accepted: Orders * Telephone Encounter - Saniya Mcintosh RMA - 03/09/2025 9:08 AM EDT Patient only has [employer] documented as insurance. No longer has [employer]. Needs new PA. Will supply sample for appt tomorrow. * Telephone Encounter - Maria Elena Harvey - 01/12/2025 1:09 PM EDT Pt suzy'ed Botox for 03/02/25 * Telephone Encounter - Brittany Narvaez MA - 01/01/2025 11:30 AM EDT ~03/02/2025 ANNIE APPROVED: [id number] AUTH #: ASO ASBM Preferred [id number] DATES OF APPROVAL: 08/12/2024-08/11/2025 UNITS APPROVED: 620 units/ 4 visits documented in this encounter Plan of Treatment Upcoming Encounters Date Type Department Care Team (Late st Contact Info) Description 04/09/2025 3:00 PM EDT Hospital Encounter [facility] [address] [place] [address] Adryan Rowan MD [address] [place] [address] [address] [place] [address] 04/29/2025 9:15 AM EDT Appointment [facility] [place] [address] Batool Celis MD [address] [place] [address] [place] [address] 05/19/2025 2:15 PM EST Office Visit [address] [address] Sin Tran MD [facility] [place] [address] 06/09/2025 12:45 PM EST Procedure visit [facility] [address] [facility] [address] [place] [address] Baltazar Samm Dillon, HYDRAMATIC MECHANIC [address] [place] [address] 08/12/2025 10:40 AM EST Appointment [facility] Women's Wellness [place] [facility] [place] [address] Matt Ulrich MD [address] [place] [address] [address] [place] [address] documented as of this encounter [...] documented as of this encounter Care Teams Day Haul Or Farm Charter Bus Driver Relationship Specialty [place] [address] [place] [address] PCP - General 06/21/10 03/08/25 Ayush Marrero MD [address] [place] [address] PCP - General Family Medicine 03/09/25 Arlyn Schmidt MD [facility] [place] [address] Consulting Physician Internal Medicine-Endocrinology, Diabetes & Metabolism 11/28/20 Tacho Echavarria MD [address] [place] [address] Internal Medicine-Medical Oncology 11/12/23 Matt Ulrich MD 1 [place] [address] Surgery-Surgical Oncology 12/04/23 Eze Brock Pastoral Care 12/13/23 Annette Walker MSW Vibrating Screed Operator 05/13/24 Batool Celis MD [address] [place] [address] [place] [address] Radiation Oncologist Radiology-Radiation Oncology 06/08/24 documented as of this encounter
--- OUTSIDE RECORDS SUMMARY | 2025-04-06 12:26 | XMS_ITS | Encounter Summary ---
Author Organization [place] [address] Care Team Providers Care Washer Blanket Name Role Phone Chetna Cedeno MD Primary Care Provider [phone] Arlyn Schmidt MD Unavailable [phone] Tacho Echavarria MD Unavailable [phone] Matt Ulrich MD Unavailable [phone] Eze Brock Unavailable Annette Walker Unavailable [phone] Batool Celis MD Unavailable [phone] Encounter Details Date Type Department Care Team (Late st Contact Info) Description 12/25/2024 Telephone [facility] [place] [address] Jasmin Porter RN Social History [...] 07/07/2024 [facility] of Occupat ional Health - Occupational Stress [...] a long term (including now)? No 11/07/2023 [facility] IP Transportation Answer D [...] Description 04/09/2025 3:00 PM EDT Hospital Encounter [facility] [address] [place] [address] Adryan Rowan MD [address] [facility] [address] [place] [address] 04/29/2025 9:15 AM EDT Appointment [place] [address] Batool Celis MD [address] [place] [address] [place] [address] 05/19/2025 2:15 PM EST Office Visit [facility] [address] [facility] [address] [place] [address] [place] [address] [place] [address] 06/09/2025 12:45 PM EST Procedure visit [facility] [address] [facility] [address] [place], [place] [address] Samm Ledesma, BLUEPRINT DUPLICATOR [address] [facility] [address] [place] [address] 08/12/2025 10:40 AM EST Appointment [facility] Women's Wellness [facility] [place] [address] Matt Ulrich MD [address] [place] [address] [address] [place] [address] documented as of this encounter Goals Goal Patient Goal Type Associated Problems Recent Progress Patient-Stated? Author Blood Pressure < 140/90 Blood Pressure 123/84(03/24 1:35 PM EDT) No Chetna Cedeno MD Breast [facility] Breast Health On track(2024 11:27 AM [...] documented as of this encounter Care Teams Washer Blanket Relationship Specialty [place] [address] [place] [address] PCP - General 06/21/10 03/08/25 Arlyn Schmidt MD [address] [place] [address] Consulting Physician Internal Medicine-Endocrinology, Diabetes & Metabolism 11/28/20 Tacho Echavarria MD [address] [place] [id number] Internal Medicine-Medical Oncology 11/12/23 Matt Ulrich MD 1 [place], [place] [address] Surgery-Surgical Oncology 12/04/23 Eze Brock Pastoral Care 12/13/23 Annette Walker, DELIVERY DEPARTMENT SUPERVISOR Iron Plastic Bullet Maker 05/13/24 Batool Celis MD 1 [facility] [place] [address] Radiation Oncologist Radiology-Radiation Oncology 06/08/24 documented as of this encounter
--- OUTSIDE RECORDS SUMMARY | 2025-04-06 12:26 | XMS_ITS | Clinical Summary ---
Author Organization [facility] Address [address] [place] [address] Phone Care Team Providers Care Oil Well Logger Name Role Phone Chetna Cedeno MD Primary Care Provider [phone] Allergies Active Allergy Reactions Criticality Noted Date [...] TABS 1 TABLET DAILY 30 0 Active Family History Medical History Relation Name Comments [...] 2025 4, 03/27/2023, 03/26/2022, Additional history exists RSV Vaccine [...] on patient's age to complete this topic Insurance [facility] MEDICAID Care Teams Oil Well Logger Relationship Specialty Start Date End Date Chetna Cedeno MD [facility] [address] [place] [address] PCP - General Family Medicine 01/02/25
--- OUTSIDE RECORDS SUMMARY | 2025-04-06 12:26 | XMS_ITS | Encounter Summary ---
Author Organization [place] [address] Care Team Providers Care Office Inspector Name Role Phone Chetna Cedeno MD Primary Care Provider [phone] Arlyn Schmidt MD Unavailable [phone] Tacho Echavarria MD Unavailable [phone] Matt Ulrich MD Unavailable [phone] Eze Brock Unavailable Annette Walker Unavailable [phone] Batool Celis MD Unavailable [phone] Encounter Details Date Type Department Care Team (Late st Contact Info) Description 02/10/2025 Orders Only [facility] [place] [address] Shilpa Cline, RN Social History [...] Recorded In the past 12 months has [employer], oil, or water [employer] threatened to shut off services in your [...] Date Recorded PHQ-2 Total Score 5 07/07/2024 [facility] of Occupat ional Health - Occupational [...] medical appointments or from getting medications? No 05/0 08/2023 In the past 12 months, has [...] a care home (including now)? No 11/07/2023 [facility] IP Transportation Answer D ate [...] Description 04/09/2025 3:00 PM EDT Hospital Encounter [facility] [address] [place] [address] Adryan Rowan MD [address] [facility] [address] [place] [address] 04/29/2025 9:15 AM EDT Appointment [place] [address] aBtool Celis MD [address] [place] [address] [place] [address] 05/19/2025 2:15 PM EST Office Visit [facility] [address] [facility] [address] [place] [address] Sin Tran MD [address]00 [place] [address] 06/09/2025 12:45 PM EST Procedure visit [facility] [address] [facility] [address] [place], [place] [phone] Samm Ledesma, MANAGER AUDIT [address] [facility] [address] [place], [place] [address] 08/12/2025 10:40 AM EST Appointment [facility] Women's Wellness [facility] [place] [address] Matt Ulrich MD [address] [place] [address] [address] [place] [address] documented as of this encounter [...] as of this encounter Care Teams Office Inspector Relationship Specialty [place] [address] [place] [address] PCP - General 06/21/10 03/08/25 Arlyn Schmidt MD [address] [place] [address] Consulting Physician Internal Medicine-Endocrinology, Diabetes & Metabolism 11/28/20 Tacho Echavarria MD 1 [place] [address] Internal Medicine-Medical Oncology 11/12/23 Matt Ulrich MD 1 [place] [address] Surgery-Surgical Oncology 12/04/23 Eze Brock Pastoral Care 12/13/23 Annette Walker, AIR BOATSWAIN Manager Treasury 05/13/24 Batool Celis MD 1 [facility] [place] [address] Radiation Oncologist Radiology-Radiation Oncology 06/08/24 documented as of this encounter
--- OUTSIDE RECORDS SUMMARY | 2025-04-06 12:26 | XMS_ITS | Encounter Summary ---
Author Organization [place] [address] Care Team Providers Care Sap Treasury Consultant Name Role Phone Chetna Cedeno MD Primary Care Provider [phone] Arlyn Schmidt MD Unavailable [phone] Tacho Echavarria MD Unavailable [phone] Matt Ulrich MD Unavailable [phone] Eze Brock Unavailable Annette Walker Unavailable [phone] Batool Celis MD Unavailable [phone] Reason for Visit * Reason Comments Oncology Nurse Navigation Encounter Details Date Type Department Care Team (Late st Contact Info) Description 02/10/2025 Patient Outreach [facility] TUMOR BD [place], [place] [id number] Tacho Echavarria MD [address] [place] [phone] Oncology Nurse Navigation Social History Tobacco Use [...] a care home (including now)? No 11/07/2023 [facility] IP Transportation [...] NN asking for a copy (printed for pickers material handlers) of the letter that Dr. Echavarria wrote regarding the air conditioner and asked for an update on getting a letter to help with her student loanforgiveness. She is in the area today and is asking if she can come and pickers material handlers these letters Theletter about the air conditioner looks like it need editing. NN will send message to clinic. Also dora thompson voicemail for Dr. Echavarria's nurse. Onc NN will continue to follow patient. documented in this encounter Plan of Treatment Upcoming Encounters Date Type Department Care Team (Late st Contact Info) Description 04/09/2025 3:00 PM EDT Hospital Encounter [facility] [address] [place] [address] Adryan Rowan MD 1401 [facility] [address] [place] [address] 04/29/2025 9:15 AM EDT Appointment [place] [address] Batool Celis MD [address] [place] [address] [place] [address] 05/19/2025 2:15 PM EST [facility] [address] [facility] [address] [place] [address] Sin Tran MD [address] [place] [address] 06/09/2025 12:45 PM EST Procedure visit [facility] [address] [facility] [address] [place] [address] Samm Ledesma, HEAD OF PHYSICS [address] [facility] [address] [place] [address] 08/12/2025 10:40 AM EST Appointment [facility] Women's Wellness [facility] [place] [address] Matt Ulrich MD [address] [place] [address] [address] [place], [place] [phone] documented as of this encounter Goals Goal [...] documented as of this encounter Care Teams Sap Treasury Consultant Relationship Specialty [place] [address] [address] [facility] [address] PCP - General 06/21/10 03/08/25 Arlyn Schmidt MD [address] [place] [address] Consulting Physician Internal Medicine-Endocrinology, Diabetes & Metabolism 11/28/20 Tacho Echavarria MD [address] [place] [id number] Internal Medicine-Medical Oncology 11/12/23 Matt Ulrich MD 1 [place] [id number] Surgery-Surgical Oncology 12/04/23 Eze Brock Pastoral Care 12/13/23 Annette Walker, FUEL TECHNICIAN Stadium Attendant 05/13/24 Batool Celis MD 1 [facility] [address] Radiation Oncologist Radiology-Radiation Oncology 06/08/24 documented as of this encounter
--- OUTSIDE RECORDS SUMMARY | 2025-04-06 12:26 | XMS_ITS | Encounter Summary ---
Author Organization [place] [address] Care Team Providers Care Painter Name Role Phone Chetna Cedeno MD Primary Care Provider [phone] Arlyn Schmidt MD Unavailable [phone] Tacho Echavarria MD Unavailable [phone] Matt Ulrich MD Unavailable [phone] Eze Brock Unavailable Annette Walker Unavailable [phone] Batool Celis MD Unavailable [phone] Encounter Details Date Type Department Care Team (Late st Contact Info) Description 01/18/2025 Telephone [facility] Medical Oncology [place], [place] [id number] Tacho Echavarria MD [address] [place] [id number] Social History Tobacco Use Types Packs/Day Years [...] the past 12 months has th e [employer], gas, oil, or water [employer] threatened to shut off services in your home? No 07/07/2024 Social Connection and Isolation Panel Answer Date Recorded In a typical week, how many times do you talk on the phone with family, friends, or neighbors? Once a week 11/07/19 How often do you get togethe r with friends or relatives? Once a week 11/07/2023 How often do you attend chur or scientologist services? 1 to 4 times [...] Recorded PHQ-2 Total Score 5 07/07/2024 [facility] [place] of Occupat ional Health - Occupational Stress [...] health care facility (including now)? No 11/07/2023 [facility] IP Transportation [...] her apartment. Letter created and sent through [employer] documented in this encounter Plan of Treatment Upcoming Encounters Date Type Department Care Team (Late st Contact Info) Description 04/09/2025 3:00 PM EDT Hospital Encounter [facility] [address] [place] [address] Adryan Rowan MD 14[address] [facility] [address] [place] [address] 04/29/2025 9:15 AM EDT Appointment [facility] [place] [address] Batool Celis MD [address] [place] [address] [place] [address] 05/19/2025 2:15 PM EST Office Visit [address] [address] Sin Tran MD [address] [place] [address] 06/09/2025 12:45 PM EST Procedure visit [facility] [address] [place] [address] Baltazar Samm Dillon, CANTILEVER CRANE OPERATOR [address] [place] [address] 08/12/2025 10:40 AM EST Appointment [facility] Women's Wellness [facility] [place] [address] Matt Ulrich MD [address] [place] [address] [address] [place] [address] documented as of this encounter Goals Goal [...] for any unusual or concerning findings. Breast [facility] Breast Health [...] documented as of this encounter Care Teams Painter Relationship Specialty [place] [address] [place] [address] PCP - General 06/21/10 03/08/25 Arlyn Schmidt MD [address] [place], [place] [phone] Consulting Physician Internal Medicine-Endocrinology, Diabetes & Metabolism 11/28/20 Tacho Echavarria MD 1 [place], [place] [phone] Internal Medicine-Medical Oncology 11/12/23 Matt Ulrich MD 1 [place], [place] 47[address] Surgery-Surgical Oncology 12/04/23 Eze Brock Pastoral Care 12/13/23 Annette Walker, ARACELI Preschool Lead Teacher 05/13/24 Batool Celis MD 1 [facility] [place] [address] Radiation Oncologist Radiology-Radiation Oncology 06/08/24 documented as of this encounter
--- OUTSIDE RECORDS SUMMARY | 2025-04-06 12:26 | XMS_ITS | Clinical Summary ---
Author Organization [facility] [place] Address [address] [place] [address] Phone Care Team Providers Care Die Caster Name Role Phone Outside, Provider Unavailable [phone] Conditions or Problems No information available. Medications No information available. Medications Administered No information available. Allergies, Adverse Reactions, Alerts No information available. Results No information available. Plan of Care No information available. Procedures No information available. Vital Signs No information available. Immunizations No information available. Advance Directives No information available.
--- OUTSIDE RECORDS SUMMARY | 2025-04-06 12:26 | XMS_ITS | Encounter Summary ---
Author Organization [place] [address] Care Team Providers Care Cleaning Manager Name Role Phone Arlyn Schmidt MD Unavailable [phone] Tacho Echavarria MD Unavailable [phone] Matt Ulrich MD Unavailable [phone] Eze Borck Unavailable Annette Walker HOSPITALITY HOUSEKEEPER Unavailable [phone] Batool Celis MD Unavailable [phone] Ayush Marrero MD Primary Care Provider [phone] Reason for Visit * Reason Comments Oncology Nurse Navigation Encounter Details Date Type Department Care Team (Late st Contact Info) Description 03/23/2025 Patient Outreach [facility] [place] [address] Shilpa Cline, RN Oncology Nurse Navigation Social [...] th e electric, gas, oil, or water [employer] threatened to shut off services in your [...] 07/07/2024 [facility] [place] of Occupat ional Health - Occupational Stress [...] in a penitentiary (including now)? No 11/07/2023 [facility] [...] Description 04/09/2025 3:00 PM EDT Hospital Encounter [facility] [address] [place] [address] Adryan Rowan MD [address] [facility] [address] [place] [address] 04/29/2025 9:15 AM EDT Appointment [facility] [place] [address] Batool Celis MD [address] [place] [address] CANCER CARE [place] [id number] 05/19/2025 2:15 PM EST Office Visit [facility] [address] [facility] [address] [place] [address] Sin Tran MD [facility] [place] [address] 06/09/2025 12:45 PM EST Procedure visit [facility] [address] [facility] [address] [place], [place] [id number] Samm Ledesma APRN [address] [facility] [address] [place] [address] 08/12/2025 10:40 AM EST Appointment [facility] Women's Wellness [facility] [place] [address] Matt Ulrich MD [address] [place] [address] [address] [place] [address] documented as of this [...] documented as of this encounter Care Teams Cleaning Manager Relationship Specialty Start Date End Date Ayush Marrero MD [address] [place] [address] PCP - General Family Medicine 03/09/25 Arlyn Schmidt MD [address] [place] [address] Consulting Physician Internal Medicine-Endocrinology, Diabetes & Metabolism 11/28/20 Tacho Echavarria MD 1 [place] [address] Internal Medicine-Medical Oncology 11/12/23 Matt Ulrich MD 1 [place] [address] Surgery-Surgical Oncology 12/04/23 Eze Brock Pastoral Care 12/13/23 Annette Walker, ARACELI Instrument Maker 05/13/24 Batool Celis MD 1 [facility] [place] [address] Radiation Oncologist Radiology-Radiation Oncology 06/08/24 documented as of this encounter
--- OUTSIDE RECORDS SUMMARY | 2025-04-06 12:26 | XMS_ITS | Encounter Summary ---
Author Organization [facility] [place] [address] Care Team Providers Care Restaurant Cashier Name Role Phone Chetna Cedeno MD Primary Care Provider [phone] Arlyn Schmidt MD Unavailable [phone] Tacho Echavarria MD Unavailable [phone] Matt Ulrich MD Unavailable [phone] Eze Brock Unavailable Annette Walker Unavailable [phone] Batool Celis MD Unavailable [phone] Reason for Visit * Reason Onset Date Comments Medication Refill 02/08/2025 Encounter Details Date Type Department Care Team (Late st Contact Info) Description 02/08/2025 Refill [facility] Care Medical Oncology [place], [place] [id number] Tacho Echavarria MD [address] [place] [address] [id number] Medication Refill Social History Tobacco Use Types [...] Recorded PHQ-2 Total Score 5 07/07/2024 [facility] of Occupat ional Health - Occupational [...] a nursing home (including now)? No 11/07/2023 [facility] IP [...] Description 04/09/2025 3:00 PM EDT Hospital Encounter [facility] [address] [place] [address] Adryan Rowan MD [address] [facility] [address] [place] [address] 04/29/2025 9:15 AM EDT Appointment [place] [address] Batool Celis MD [address] [place] [address] DR [facility] [place], [place] [id number] 05/19/2025 2:15 PM EST Office Visit [facility] [address] [facility] [address] [place] [address] Sin Tran MD [address] [place] [address] 06/09/2025 12:45 PM EST Procedure visit [facility] [address] [facility] [address] [place] [address] Samm Ledesma APRN [address] [facility] [address] [place] [address] 08/12/2025 10:40 AM EST Appointment [facility] Women's Wellness [facility] [place] [address] Matt Ulrich MD [address] [place] [address] [address] [place] [id number] documented as of this encounter Goals Goal [...] documented as of this encounter Care Teams Restaurant Cashier Relationship Specialty [place] [address] [place] [address] PCP - General 06/21/10 03/08/25 Arlyn Schmidt MD [address] [place] [address] Consulting Physician Internal Medicine-Endocrinology, Diabetes & Metabolism 11/28/20 Tacho Echavarria MD 1 [place] [address] Internal Medicine-Medical Oncology 11/12/23 Matt Ulrich MD 1 [place] [address] Surgery-Surgical Oncology 12/04/23 Eze Brock Pastoral Care 12/13/23 Annette Walker, ARACELI Gas Appliance Adjuster 05/13/24 Batool Celis MD [address] [place] [address] [place] [address] Radiation Oncologist Radiology-Radiation Oncology 06/08/24 documented as of this encounter
--- OUTSIDE RECORDS SUMMARY | 2025-04-06 12:26 | XMS_ITS | Encounter Summary ---
Author Organization [place] [address] Care Team Providers Care Surveillance Operator Name Role Phone Arlyn Schmidt MD Unavailable [phone] Tacho Echavarria MD Unavailable [phone] Matt Ulrich MD Unavailable [phone] Eze Brock Unavailable Annette Walker MICROFILMING DOCUMENT PREPARER Unavailable [phone] Batool Celis MD Unavailable [phone] Ayush Marrero MD Primary Care Provider [phone] Encounter Details Date Type Department Care Team (Late st Contact Info) Description 03/24/2025 Telephone Cancer Care Medical Oncology [place], [place] [id number] Tacho Echavarria MD [address] [place] [address] [id number] Social History Tobacco Use Types Packs/Day Years [...] the past 12 months has th e [employer], gas, oil, or water [employer] threatened to shut off services in your [...] Total Score 5 07/07/2024 [facility] [place] of Occupat ional Health - Occupational Stress [...] now)? No 11/07/[address] [facility] IP Transportation Answer [...] Telephone Encounter - Rosana Gupta, RN - 03/24/2025 3:52 PM EDT [facility] message sent asking for records from [facility]. documented in this encounter Plan of Treatment Upcoming Encounters Date Type Department Care Team (Late st Contact Info) Description 04/09/2025 3:00 PM EDT Hospital Encounter [facility] [address] [place] [address] Adryan Rowan MD [address] [facility] [address] [place] [address] 04/29/2025 9:15 AM EDT Appointment [facility] [place] [address] Batool Celis MD [address] [place] [address] [place] [address] 05/19/2025 2:15 PM EST Office Visit [facility] 49[address] [facility] [address] [place] [address] Sin Tran MD [address]00 [place] [address] 06/09/2025 12:45 PM EST Procedure visit [facility] [address] [facility] [address] [place] [address] Samm Ledesma, SKIING INSTRUCTOR [address] [facility] [address] [place] [address] 08/12/2025 10:40 AM EST Appointment [facility] Women's Wellness [place] [facility] [place] [id number] Matt Ulrich MD [address] [place] [address] [address] [place] [address] documented as of this encounter Goals Goal [...] with any future questions or concerns. Breast [facility] Breast Health Not on track(2024 11:27 AM EDT) No Jasmin Porter, RAUL Note: Patient will be compliant with monthly SBE and is aware of who to contact for any unusual or concerning findings. Breast [facility] Breast Health On track(2024 11:27 [...] as of this encounter Care Teams Surveillance Operator Relationship Specialty Start Date End Date Ayush Marrero MD [address] [place] [address] PCP - General Family Medicine 03/09/25 Arlyn Schmidt MD [facility] [place] [address] Consulting Physician Internal Medicine-Endocrinology, Diabetes & Metabolism 11/28/20 Tacho Echavarria MD 1 [place] [address] Internal Medicine-Medical Oncology 11/12/23 Matt Ulrich MD 1 [place] [address] Surgery-Surgical Oncology 12/04/23 Eze Brock Pastoral Care 12/13/23 Annette Walker, [facility] Log Brander 05/13/24 Batool Celis MD 1 [facility] [place] [address] Radiation Oncologist Radiology-Radiation Oncology 06/08/24 documented as of this encounter
--- OUTSIDE RECORDS SUMMARY | 2025-04-06 12:26 | XMS_ITS | Encounter Summary ---
Author Organization [place] [address] Care Team Providers Care Cable Machine Operator Name Role Phone Chetna Cedeno MD Primary Care Provider [phone] Arlyn Schmidt MD Unavailable [phone] Tacho Echavarria MD Unavailable [phone] Matt Ulrich MD Unavailable [phone] Eze Brock Unavailable Annette Walker Unavailable [phone] Batool Celis MD Unavailable [phone] Ayush Marrero MD Primary Care Provider [phone] Reason for Visit * Reason Onset Date Comments Medication Refill 03/04/2025 Encounter Details Date Type Department Care Team (Late st Contact Info) Description 03/04/2025 Telephone [facility] [address] [place] [address] [place] [address] [place] [address] Medication Refill Social History Tobacco [...] 07/07/2024 [facility] of Occupat ional [facility] - Occupational Stress Questionnaire Answer Date [...] in a residential (including now)? No 11/07/2023 [facility] IP Transportation [...] Description 04/09/2025 3:00 PM EDT Hospital Encounter [facility] [address] [place] [address] Adryan Rowan MD [address] [place] [address] 04/29/2025 9:15 AM EDT Appointment [place] [address] Batool Celis MD [address] [place] [address] [place] [address] 05/19/2025 2:15 PM EST Office Visit [facility] [address] [facility] [address] [place] [address] Sin Tran MD 4900 [place] [address] 06/09/2025 12:45 PM EST Procedure visit [facility] [address] [facility] [address] [place] [address] Samm Ledesma, DIGITAL MEDIA DIRECTOR [address] [facility] [address] [place], [place] [address] 08/12/2025 10:40 AM EST Appointment [facility] Women's Wellness [facility] [place] [address] Matt Ulrich MD [address] [place] [address] 254 [place] [address] documented as of this encounter [...] as of this encounter Care Teams Cable Machine Operator Relationship Specialty [place] [address] [place] [address] PCP - General 06/21/10 03/08/25 Ayush Marrero MD [address] [place] [address] PCP - General Family Medicine 03/09/25 Arlyn Schmidt MD [address] [place], [place] [address] Consulting Physician Internal Medicine-Endocrinology, Diabetes & Metabolism 11/28/20 Tacho Echavarria MD 1 [place], [place] 09[address] Internal Medicine-Medical Oncology 11/12/23 Matt Ulrich MD 1 [place], [place] [address] Surgery-Surgical Oncology 12/04/23 Eze Brock Pastoral Care 12/13/23 Annette Walker, VICE PRESIDENT OF OPERATIONS Clinical Allergist 05/13/24 Batool Celis MD 1 [facility] [place] [address] Radiation Oncologist Radiology-Radiation Oncology 06/08/24 documented as of this encounter
--- OUTSIDE RECORDS SUMMARY | 2025-04-06 12:26 | XMS_ITS | Encounter Summary ---
Author Organization [place] [address] Care Team Providers Care Finish Machine Tender Name Role Phone Arlyn Schmidt MD Unavailable [phone] Tacho Echavarria MD Unavailable [phone] Matt Ulrich MD Unavailable [phone] Eze Brock Unavailable Annette Walker C D AREA SUPERVISOR Unavailable [phone] Batool Celis MD Unavailable [phone] Ayush Marrero MD Primary Care Provider [phone] Encounter Details Date Type Department Care Team (Late st Contact Info) Description 03/23/2025 Social Work [facility] [place] [address] Annette Walker, C D AREA SUPERVISOR Social History Tobacco Use Types Packs/Day Years [...] Recorded In the past 12 months has [employer], oil, or [email or web address] threatened to shut off services in your [...] [facility] of Occupat ional [facility] - Occupational Stress Questionnaire Answer Date [...] a long term (including now)? No 11/07/2023 [facility] Progress Notes * Annette Walker MSW - 03/23/2025 3:38 PM EDT 03/23/25 1538 Entrepreneurship Program Director Assessment Referred By Claudia THOMSON RN Disease/[place] Site Blueprint Reader Assignment Breast cancer Referral Location: Medical Oncology Reason for Referral Adjustment to illness/Financial Identified Needs Financial issues;Adjustment to illness Social Work Interventions Brief Couseling/Support;Education/Information;Financial/Efren [employer] received referral from Claudia Cline RN that Patient could use emotional support regarding diagnosis of metastatic disease. [employer] spoke with Patient and provided brief counseling/support to her emotionally. TREE SCOUT allowed time for processing her disappointment and fear regarding the future. Patient is still residing a significant distance from [facility] and is not sure she will continue treatment at this location. TREE SCOUT discussed options including the [employer]'s Lodging Program that could assist with lodging expenses if she needed to stay in [facility] for treatment. There are a limited number of free nights and then discounted nightly rate. Patient is continuing telehealth therapy with [facility] through [facility]. Patient also reports taking her medication regularly to address her depression. Patient processed emotions regarding mortality. Patient will be in clinic tomorrow to meet with Dr. Echavarria. Patient requested any additional assistance for financial need. T[employer] explained Patient has exhausted several grants that are limited to one time but [employer] will explore additional opportunities. documented in this encounter Plan of Treatment Upcoming Encounters Date Type Department Care Team (Late st Contact Info) Description 04/09/2025 3:00 PM EDT Hospital Encounter [facility] [address] [place] [address] [place] [address] [place] [address] [address] [place] [address] 04/29/2025 9:15 AM EDT Appointment [place] [address] Batool Celis MD [address] [place] [address] [place] [address] 05/19/2025 2:15 PM EST Office Visit [facility] [address] [facility] [address] [place] [address] Sin Tran MD [address]00 [place] [address] 06/09/2025 12:45 PM EST Procedure visit [facility] NE[facility] [address] [facility] [address] [place] [address] Samm Ledesma, BUSINESS UNIT DIRECTOR [address] [facility] [address] [place] [address] 08/12/2025 10:40 AM EST Appointment [facility] Women's Wellness [facility] [place] [address] Matt Ulrich MD [address] [place] [address] [address] [place] [address] documented as of this encounter Goals Goal [...] On track(2024 11:27 AM EDT) Demi Leonardo, RAUL Note: Patient will be compliant with [...] documented as of this encounter Care Teams Finish Machine Tender Relationship Specialty Start Date End Date Ayush Marrero MD [address] [place] [id number] PCP - General Family Medicine 03/09/25 Arlyn Schmidt MD [address] [place] [address] Consulting Physician Internal Medicine-Endocrinology, Diabetes & Metabolism 11/28/20 Tacho Echavarria MD 1 [place] [address] Internal Medicine-Medical Oncology 11/12/23 Matt Ulrich MD [address] [place] [address] Surgery-Surgical Oncology 12/04/23 Eze Brock Pastoral Care 12/13/23 Annette Walker MSW Blueprint Reader 05/13/24 Batool Celis MD [address] [place] [address] [place] [address] Radiation Oncologist Radiology-Radiation Oncology 06/08/24 documented as of this encounter
--- OUTSIDE RECORDS SUMMARY | 2025-04-06 12:26 | XMS_ITS | Encounter Summary ---
Author Organization [place] [address] Care Team Providers Care Skein Yarn Dyer Helper Name Role Phone Arlyn Schmidt MD Unavailable [phone] Tacho Echavarria MD Unavailable [phone] Matt Ulrich MD Unavailable [phone] Eze Brock Unavailable Annette Walker REPRODUCTION ORDER PROCESSOR Unavailable [phone] Batool Celis MD Unavailable [phone] Ayush Marrero MD Primary Care Provider [phone] Encounter Details Date Type Department Care Team (Late st Contact Info) Description 03/09/2025 Telephone Cancer Care Medical Oncology [place], [place] [id number] Tacho cEhavarria MD [address] [place] [id number] Social History Tobacco Use Types Packs/Day Years [...] the past 12 months has th e [employer], gas, oil, or water [employer] threatened to shut off services in your [...] Score 5 07/07/2024 [facility] [place] of Occupat ional Health - Occupational [...] a skilled nursing (including now)? No 11/07/2023 [facility] [...] Description 04/09/2025 3:00 PM EDT Hospital Encounter [facility] [address] [place] [address] Adryan Rowan MD [address] [place] [address] [address] [place] [address] 04/29/2025 9:15 AM EDT Appointment [facility] [place] [place] [address] Batool Celis MD [address] [place] [address] [place] [address] 05/19/2025 2:15 PM EST Office Visit [facility] [address] [place] [address] Sin Tran MD [address] [place] [address] 06/09/2025 12:45 PM EST Procedure visit [facility] [address] [facility] [address] [place], [place] [address] Samm Ledesma, BREEDING TECHNICIAN [address] [facility] [address] [place] [address] 08/12/2025 10:40 AM EST Appointment [facility] Women's Wellness [place] [address] [place] [place] [address] Matt Ulrich MD [address] [place] [address] 254 [place] [address] documented as of this encounter Goals Goal [...] any unusual or concerning findings. Breast [facility] Breast Health On [...] documented as of this encounter Care Teams Skein Yarn Dyer Helper Relationship Specialty Start Date End Date Ayush Marrero MD [address] [place], [place] [id number] PCP - General Family Medicine 03/09/25 Arlyn Schmidt MD [address] [place] [address] Consulting Physician Internal Medicine-Endocrinology, Diabetes & Metabolism 11/28/20 Tacho Echavarria MD 1 [place] [address] Internal Medicine-Medical Oncology 11/12/23 Matt Ulrich MD 1 [place] [address] Surgery-Surgical Oncology 12/04/23 Eze Brock Pastoral Care 12/13/23 Annette Walker, ARACELI Parts Counter Sales Person 05/13/24 Batool Celis MD 1 [place] [address] Radiation Oncologist Radiology-Radiation Oncology 06/08/24 documented as of this encounter
--- OUTSIDE RECORDS SUMMARY | 2025-04-06 12:26 | XMS_ITS | Encounter Summary ---
Author Organization [place] [address] Care Team Providers Care Telephone Clerks Supervisor Name Role Phone Chetna Cedeno MD Primary Care Provider [phone] Arlyn Schmidt MD Unavailable [phone] Tacho Echavarria MD Unavailable [phone] Matt Ulrich MD Unavailable [phone] Eze Brock Unavailable Annette Walker Unavailable [phone] Batool Celis MD Unavailable [phone] Encounter Details Date Type Department Care Team (Late st Contact Info) Description 03/04/2025 Orders Only [facility] Medical Oncology [place], [place] [id number] Tacho Echavarria MD [address] [place] [address] [phone] Invasive ductal carcinoma of breast, female, right [...] health care facility (including now)? No 11/07/2023 [facility] IP Transportation [...] Description 04/09/2025 3:00 PM EDT Hospital Encounter [facility] [address] [place] [address] Adryan Rowan MD 1401 [facility] [address] [place] [address] 04/29/2025 9:15 AM EDT Appointment [place] [address] Batool Celis MD [address] [place] [address] [place] [address] 05/19/2025 2:15 PM EST Office Visit [facility] [address] [place] [address] Sin Tran MD [address] [place] [address] 06/09/2025 12:45 PM EST Procedure visit [facility] [address] [facility] [address] [place] [address] Samm Ledemsa APRN [address] [facility] [address] [place], [place] [id number] 08/12/2025 10:40 AM EST Appointment [facility] Women's Wellness [facility] [place] [address] Matt Ulrich MD 20 [facility] [address] [place] [address] documented as of this encounter Goals Goal Patient Goal Type Associated Problems Recent Progress Patient-Stated? Author Blood Pressure < 140/90 Blood Pressure 123/84(03/24 1:35 PM EDT) No Chetna Cedeno MD Breast [facility] Breast Health On track(2024 11:27 AM EDT) No Jasmin Porter, RAUL Note: Patient acknowledges understanding of new diagnosis, plan of care, available resources and how to contact Nurse Navigator with any future questions or concerns. Breast [facility] Breast Health Not on track(2024 11:27 AM EDT) No Jasmin Porter, RAUL Note: Patient will be compliant with monthly SBE and is aware of who to contact for any unusual or concerning findings. Breast [facility] Breast Health On track(2024 [...] - 145 mmol/L 03/24/2025 1:58 PM EDT [facility] Potassium 3.8 3.5 - 5.0 mmol/L 03/24/2025 1:58 PM EDT [facility] Chloride 104 98 - 107 mmol/L 03/24/2025 1:58 PM EDT [facility] Total CO2 23 22 - 29 mmol/L 03/24/2025 1:58 PM EDT [facility] Anion Gap 13 7 - 16 mmol/L 03/24/2025 1:58 PM EDT [facility] Calcium 9.1 8.6 - 10.4 mg/dL 03/24/2025 1:58 PM EDT [facility] Glucose Lvl 114(H) 70 - 99 mg/dL 03/24/2025 1:58 PM EDT [facility] BUN 14 6 - 20 mg/dL 03/24/2025 1:58 PM EDT [facility] Creatinine 0.81 0.51 - 1.30 mg/dL 03/24/2025 1:58 PM EDT [facility] Albumin 3.9 3.5 - 5.2 gm/dL 03/24/2025 1:58 PM EDT [facility] Total Protein 6.4 6.4 - 8.3 gm/dL 03/24/2025 1:58 PM EDT [facility] Bili Total 0.4 0.2 - 1.3 mg/dL 03/24/2025 1:58 PM EDT [facility] ALT 8 <=41 U/L 03/24/2025 1:58 PM EDT [facility] AST 14 <=40 U/L 03/24/2025 1:58 PM EDT [facility] Alk Phos 146(H) 36 - 123 U/L 03/24/2025 1:58 PM EDT [facility] eGFR (CKD-EPIcr 2020) 84 >=60 mL/min/1.7 3 m2 03/24/2025 1:58 PM EDT [facility] Comment:Estimated GFR was ca lculated using the CKD-EPIcr (2020) equation refit without race. The equation is recommended by the National Kidney Foundation - [place] Society of Nephrology Task Force. Blood VENOUS STRUCTURE / Unknown Port / Unknown 03/24/2025 1:29 PM EDT 03/24/2025 1:36 PM EDT Tacho Echavarria MD CHEMISTRY ORDERABLES Final Result [facility] [address] [place] [id number] * (ABNORMAL) CBC WITH DIFF (03/24/2025 1:29 PM EDT) [facility] WBC 3.9 3.7 - 10.3 x10(3)/mc L 03/24/2025 1:40 PM EDT [facility] RBC 2.92(L) 3.90 - 5.20 x10(6)/mc L 03/24/2025 1:40 PM EDT [facility] Hgb 9.7(L) 11.2 - 15.7 g/dL 03/24/2025 1:40 PM EDT [facility] Hct 28.2(L) 34.0 - 45.0 % 03/24/2025 1:40 PM EDT [facility] MCV 96.6 80.0 - 100.0 fL 03/24/2025 1:40 PM EDT [facility] MCH 33.2 26.0 - 34.0 pg 03/24/2025 1:40 PM EDT [facility] MCHC 34.4 30.7 - 35.5 g/dL 03/24/2025 1:40 PM EDT [facility] RDW 13.7 <=14.9 % 03/24/2025 1:40 PM EDT [facility] Platelet 197 155 - 369 x10(3)/mc L 03/24/2025 1:40 PM EDT [facility] MPV 8.9 8.8 - 12.5 fL 03/24/2025 1:40 PM EDT [facility] Neut # Prelim 2.3 1.6 - 6.1 x10(3)/mc L 03/24/2025 1:40 PM EDT [facility] Comment:Preliminary automate d absolute neutrophil count. Value may change if manual differential is indicated. Neut Percent 60.4 % 03/24/2025 1:40 PM EDT [facility] Comment:Neutrophils equals s egs plus bands Imm Gran% 0.3 % 03/24/2025 1:40 PM EDT [facility] Comment:Automated count of m etamyelocytes, myelocytes and promyelocytes. Lymph Percent 28.2 % 03/24/2025 1:40 PM EDT [facility] [place] Percent 8.5 % 03/24/2025 1:40 PM EDT [facility] Eos Percent 1.3 % 03/24/2025 1:40 PM EDT [facility] Baso Percent 1.3 % 03/24/2025 1:40 PM EDT [facility] Neut # 2.3 1.6 - 6.1 x10(3)/mc L 03/24/2025 1:40 PM EDT [facility] Comment:Neutrophils equals s egs plus bands IMMGRAN# 0.0 0.0 - 0.1 x10(3)/mc L 03/24/2025 1:40 PM EDT [facility] Comment:Automated count of m etamyelocytes, myelocytes and promyelocytes. An absolute IG <0.1 is reported as 0.0. Lymph # 1.1(L) 1.2 - 3.9 x10(3)/mc L 03/24/2025 1:40 PM EDT [facility] [place] # 0.3 0.3 - 0.9 x10(3)/mc L 03/24/2025 1:40 PM EDT [facility] Eos# 0.1 0.0 - 0.5 x10(3)/mc L 03/24/2025 1:40 PM EDT [facility] Baso # 0.1 0.0 - 0.1 x10(3)/ L 03/24/2025 1:40 PM EDT [facility] Blood VENOUS STRUCTURE / Unknown Port / Unknown 03/24/2025 1:29 PM EDT 03/24/2025 1:35 PM EDT Tacho Echavarria MD HEMATOLOGY ORDERABLES Final Result [facility] 1 [place] [address] documented in this encounter Visit Diagnoses Diagnosis Invasive ductal carcinoma of breast, female, right (HCC)- Primary documented in this encounter Additional Health Concerns Assessment Noted Time PHQ-9 Depression Total Score: 17 024 8:39 AM EST PHQ-2 Depression Total Score: 5 07/07/20 24 8:39 AM EST documented as of this encounter Care Teams Telephone Clerks Supervisor Relationship Specialty [place] [address] [place] [phone] PCP - General 06/21/10 03/08/25 Arlyn Schmidt MD [address] [place] [address] Consulting Physician Internal Medicine-Endocrinology, Diabetes & Metabolism 11/28/20 Tacho Echavarria MD 1 [place] [address] Internal Medicine-Medical Oncology 11/12/23 Matt Ulrich MD 1 [place], [place] [id number] Surgery-Surgical Oncology 12/04/23 Eze Brock Pastoral Care 12/13/23 Annette Walker, COSTUMED CHARACTER ENTERTAINER Saturator 05/13/24 Batool Celis MD 1 [facility] [place] [address] Radiation Oncologist Radiology-Radiation Oncology 06/08/24 documented as of this encounter
--- OUTSIDE RECORDS SUMMARY | 2025-04-06 12:26 | XMS_ITS | Encounter Summary ---
Author Organization [place] [address] Care Team Providers Care Electronic Device Repairer Name Role Phone Arlyn Schmidt MD Unavailable [phone] Tacho Echavarria MD Unavailable [phone] Matt Ulrich MD Unavailable [phone] Eze Brock Unavailable Annette Walker ORGANIZATIONAL DEVELOPMENT CONSULTANT Unavailable [phone] Batool Celis MD Unavailable [phone] Ayush Marrero MD Primary Care Provider [phone] Encounter Details Date Type Department Care Team (Late st Contact Info) Description 03/22/2025 Telephone [facility] Medical Oncology [place], [place] [id number] Tacho Echavarria MD [address] [place] [address] [id number] Social History Tobacco Use Types Packs/Day Years [...] the past 12 months has th e Pryv, gas, oil, or water [employer] threatened to shut off services in your [...] Total Score 5 07/07/2024 [facility] of Occupat ional Health - Occupational Stress [...] in a mcc (including now)? No 11/07/2023 [facility] Transportation Answer [...] Telephone Encounter - Rosana Gupta RN - 03/22/2025 11:10 AM EDT Noted, thank you * Telephone Encounter - Tia Moulton, Clerical Staff - 03/22/2025 10:38 AM EDT Patient returning call. States that she is seeing Dr. Rowan at [facility] in [facility] and he is managing her care. Teams message sent to RN to ask if follow up is still needed. Scheduled MD follow up on 03/24 at 1:40 with labs prior. * Telephone Encounter - Linda Sewell CNA - 03/22/2025 10:10 AM EDT Called patient but no VM set up, will try again this afternoon, Also sent Pryv message. * Telephone Encounter - Rosana Gupta RN - 03/22/2025 9:52 AM EDT MD would like to see patient to review scan results. Please see if she is available to come in Saturday. Ok to double book if no spots available. documented in this encounter Plan of Treatment Upcoming Encounters Date Type Department Care Team (Late st Contact Info) Description 04/09/2025 3:00 PM EDT Hospital Encounter [facility] [address] [place] [address] Adryan Rowan MD [address] [facility] [address] [place] [address] 04/29/2025 9:15 AM EDT Appointment [place] [address] Batool Celis MD [address] [place] [address] CANCER CARE [place], [place] [phone] 05/19/2025 2:15 PM EST Office Visit [facility] [address] [facility] [address] [place] [address] Sin Tran MD 4900 [place] [address] 06/09/2025 12:45 PM EST Procedure visit [facility] [address] [facility] [address] [place] [address] Samm Ledesma, ENTERPRISE RESOURCE ANALYST [address] [facility] [address] [place] [address] 08/12/2025 10:40 AM EST Appointment [facility] Women's Wellness [facility] [place] [address] Matt Ulrich MD [address] [facility] [address] [place], [place] [phone] documented as of this encounter Goals Goal [...] as of this encounter Care Teams Electronic Device Repairer Relationship Specialty Start Date End Date Ayush Marrero MD [address] [place] [address] PCP - General Family Medicine 03/09/25 Arlyn Schmidt MD [address] [place] [address] Consulting Physician Internal Medicine-Endocrinology, Diabetes & Metabolism 11/28/20 Tacho Echavarria MD 1 [place] [address] Internal Medicine-Medical Oncology 11/12/23 Matt Ulrich MD 1 [place] [address] Surgery-Surgical Oncology 12/04/23 Eze Brock Pastoral Care 12/13/23 Annette Walker, ARACELI Outside Plant Technician 05/13/24 Batool Celis MD [address] [place] [address] [place] [address] Radiation Oncologist Radiology-Radiation Oncology 06/08/24 documented as of this encounter
--- OUTSIDE RECORDS SUMMARY | 2025-04-06 12:26 | XMS_ITS | Encounter Summary ---
Author Organization [place] [address] Care Team Providers Care Manpower Development Advisor Name Role Phone Chetna Cedeno MD Primary Care Provider [phone] Arlyn Schmidt MD Unavailable [phone] Tacho Echavarria MD Unavailable [phone] Matt Ulrich MD Unavailable [phone] Eze Brock Unavailable Annette Walker Unavailable [phone] Batool Celis MD Unavailable [phone] Reason for Visit * Reason Onset Date Comments Paperwork/forms 03/02/2025 paperwork receiv ed from [facility] Encounter Details Date Type Department Care Team (Late st Contact Info) Description 03/02/[address] [facility] Diabetes [place] [address] [facility] [address] [place] [address] Arlyn Schmidt MD [address] [place] [address] Paperwork/forms (paperwork received from [facility]) Social History Tobacco Use Types Packs/Day Years [...] a long-term (including now)? No 11/07/2023 [facility] IP [...] No 12/06/2022 2:08 PM EDT Macarena Marion Nelli ZEINA * Because of a physical, mental or emotional condition, does this person have difficulty doing errands alone such as visiting a doctor's office or shopping? Answer Date of Assessment Author No 12/06/2022 2:08 PM EDT Macarena Marion ZEINA documented as of this encounter Mental Status * Because of a physical, mental or emotional condition, does this person have serious difficulty concentrating, remembering or making decisions? Answer Entry Date Author No 12/06/2022 2:08 PM EDT Macarena Marion Nelli ZEINA documented in this encounter Miscellaneous Notes * Telephone Encounter - Toya Wilson MA - 03/02/2025 11:13 AM EDT attempted to reach patient about a fax we received from [facility], to ask if we are sending medical records there or if records are being sent to [place]. Unable to leave due to it not being set up. documented in this encounter Plan of Treatment Upcoming Encounters Date Type Department Care Team (Late st Contact Info) Description 04/09/2025 3:00 PM EDT Hospital Encounter [facility] [address] [place] [address] Adryan Rowan MD [address] [facility] [address] [place] [address] 04/29/2025 9:15 AM EDT Appointment [facility] [place] [address] Batool Celis MD [address] [place] [address] [place] [address] 05/19/2025 2:15 PM EST Office Visit [address] [address] Sin Tran MD [address] [facility] [place] [address] 06/09/2025 12:45 PM EST Procedure visit [facility] [address] [facility] [address] [place] [address] Mauriciolorna Samm Santana, CHIEF OPERATOR SYNTHESIS [address] [facility] [address] [place] [address] 08/12/2025 10:40 AM EST Appointment [facility] Women's Wellness [place] [address] [facility] [place] [address] Matt Ulrich MD [address] [place] [address] [address] [place] [address] documented as of this encounter [...] documented as of this encounter Care Teams Manpower Development Advisor Relationship Specialty [place] [address] [place] [phone] PCP - General 06/21/10 03/08/25 Arlyn Schmidt MD [address] [place], [place] [address] Consulting Physician Internal Medicine-Endocrinology, Diabetes & Metabolism 11/28/20 Tacho Echavarria MD 1 [place], [place] [address] Internal Medicine-Medical Oncology 11/12/23 Matt Ulrich MD 1 [place], [place] [id number] Surgery-Surgical Oncology 12/04/23 Eze Brock Pastoral Care 12/13/23 Annette Walker, ARACELI Internal Medicine Physician Assistant 05/13/24 Batool Celis MD 1 [facility] [place] [address] Radiation Oncologist Radiology-Radiation Oncology 06/08/24 documented as of this encounter
--- OUTSIDE RECORDS SUMMARY | 2025-04-06 12:26 | XMS_ITS ---
Author Organization [place] [facility] Address [address] [facility] [address] [place], [place] [address] Phone Care Team Providers Care Head Start Teacher Name Role Phone Arlyn Schmidt MD Unavailable [phone] Tacho Echavarria MD Unavailable [phone] Matt Ulrich MD Unavailable [phone] Eze Brock Unavailable Annette Walker Unavailable [phone] Batool Celis MD Unavailable [phone] Ayush Marrero MD Primary Care Provider [phone] Active Problems * This document contains information received from the source organization and may not represent a complete record from that organization. Patient Care Coordination No te Formatting of this note migh t be different from the original. [facility] - Sin Tran MD Controlled [...] Functional capacity documented (EVERY VISIT)01/03/2022 [facility] [address] [place] [phone] [facility] [phone] AIS POA: 02/10/2025 josh as expected #[id number] Josh 08-05-2018 adm Josh 08-14-18 adm UDS 08-08-18 adm Care gap audit completed by Medina White RN on 01/01/2022. 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 [...] up to GI tolerance for2 yr planned (Beaufort-E regimen) Radiation therapy External beam radiotherapy to [...] to GI tolerance for 2 yr planned (Beaufort-E regimen) 10/2024 - changed to Aromasin d/t [...] General Health Continue follow-up with PCP and STEAM ROOM ATTENDANT as directed Recommendations Self-care plan: What you [...] with your body,see your regular doctor, physician data control assistant, or nurse practitioner. If what you [...] Problem Noted Date Diagnosed Date Resolved Date [place] syndrome 12/30/2020 10/16/2021 Assessment & Plan (12/30/2020 12:05 PM EDT): The patient has some features of cortisol excess. I doubt the patient has underlying [place]'s disease. We will proceed with the work-up [...]
--- OUTSIDE RECORDS SUMMARY | 2025-04-06 12:27 | XMS_ITS | Encounter Summary ---
Author Organization [place] [address] Care Team Providers Care Scientific Artist Name Role Phone Chetna Cedeno MD Primary Care Provider [phone] Arlyn Schmidt MD Unavailable [phone] Tacho Echavarria MD Unavailable [phone] Matt Ulrich MD Unavailable [phone] Eze Brock Unavailable Cheryl Nair RN Unavailable [phone] Annette Walker LAUNDERER HAND Unavailable [phone] Batool Celis MD Unavailable [phone] Ayush Marrero MD Primary Care Provider [phone] Encounter Details Date Type Department Care Team (Late st Contact Info) Description 10/26/2024 Orders Only [facility] Physical Therapy [place] [address] [place] [address] [address] [place] [address] Shaunna Workman PT Social History [...] doctor or pharmacy? Never 11/07/2023 [facility] Utilities Answer Date Recorded In the [...] in a penitentiary (including now)? No 11/07/2023 [facility] IP Transportation Answer D ate [...] 2:08 PM EDT Macarena Marion CCMA * Suicide Severity Rating Answer Date of Assessment Author No Risk 11/22/2024 10:36 AM EDT Rodolfo Jc RN * Jones Suicide Severity Rating Scale (Q shift for moderate and high) Question Answer Date of Assessment Author 1. In the past month, have y ou wished you were or wished you could go to sleep and not wake up? 0 11/22/2024 10:36 AM EDT Rodolfo Jc RN 2. In the past month, have y ou actually had any thoughts of killing yourself? (If no, skip to question 6) 0 11/22/2024 10:36 AM OBEDT Rodolfo Jc RN 6. Have you ever done anythi ng, started to do anything, or prepared to do anything to end your life? 0 11/22/2024 10:36 AM EDT Rodolfo Jc RN documented as of this encounter Mental [...] Description 04/09/2025 3:00 PM EDT Hospital Encounter [facility] [address] [place] [address] Adryan Rowan MD [address] [facility] [address] [place] [address] 04/29/2025 9:15 AM EDT Appointment [facility] [place] [address] Batool Celis MD [address] [place] [address] [place] [address] 05/19/2025 2:15 PM EST Office Visit [facility] [address] [facility] [address] [place] [address] Sin Tran MD [address] [facility] [place] [address] 06/09/2025 12:45 PM EST Procedure visit [facility] [address] [facility] [place], [place] [phone] Samm Ledesma, LEYLA [address] [facility] [address] [place] [address] 08/12/2025 10:40 AM EST Appointment [facility] Women's Wellness [facility] [place] [address] Matt Ulrich MD [address] [place] [address] [address] [place] [address] documented as of this encounter Goals Goal Patient Goal Type Associated Problems Recent Progress Patient-Stated? Author Blood Pressure < 140/90 Blood Pressure 123/84(03/24 1:35 PM EDT) No Chetna Cedeno MD [facility] Breast Health On track(2024 11:27 AM EDT) No Jasmin Porter, RAUL Note: Patient acknowledges understanding of new diagnosis, plan of care, available resources and how to contact Nurse Navigator with any future questions or concerns. Breast [facility] Breast Health Not on track(2024 11:27 AM EDT) No Jasmin Porter RN Note: Patient will be compliant with monthly SBE and is aware of who to contact for any unusual or concerning findings. Breast [facility] Breast Health On track(2024 11:27 AM [...] documented as of this encounter Care Teams Scientific Artist Relationship Specialty [place] [address] [place] [phone] PCP - General 06/21/10 03/08/25 Ayush Marrero MD [address] [place] [address] PCP - General Family Medicine 03/09/25 Arlyn Schmidt MD [address] [place], [place] [phone] Consulting Physician Internal Medicine-Endocrinology , Diabetes & Metabolism 11/28/20 Tacho Echavarria MD 1 [place], [place] [id number] Internal Medicine-Medical Oncology 11/12/23 Matt Ulrich MD 1 [place] [address] Surgery-Surgical Oncology 12/04/23 Eze Brock Pastoral Care 12/13/23 Cheryl Nair, RN Oncology Nurse Navigator 03/25/2412/13 Annette Walker MSW Sanitation Associate 05/13/24 Batool Celis MD [address] [place] [address] [place] [address] Radiation Oncologist Radiology-Radiation Oncology 06/08/24 documented as of this encounter
--- OUTSIDE RECORDS SUMMARY | 2025-04-06 12:27 | XMS_ITS | Encounter Summary ---
Author Organization [place] [address] Care Team Providers Care Bpo Specialist Name Role Phone Chetna Cedeno MD Primary Care Provider [phone] Leslie Cooley DIESEL TRUCK TECHNICIAN Unavailable UnaBatool Talley VISUAL MERCHANDISING COORDINATOR Unavailable Unavailab Arlyn Disla MD Unavailable [phone] Cheryl Nair RN Unavailable [phone] Tacho Echavarria MD Unavailable [phone] Matt Ulrich MD Unavailable [phone] Hilary Clemens RN Unavailable Unavaila Eze Caro Unavailable Shila Albrecht RN Unavailable Unavail able Cheyanne To RN Unavailable UnavailRayna Johnson RN Unavailable Unavailab Shilpa Olivarez RN Unavailable [phone] Tulio Duong RN Unavailable Unavailable Yaquelin Weaver RN Unavailable Unavailable Pam Wang RN Unavailable Unavailable Jazmín Nair RN Unavailable Unavailable Fidel Rainey RN Unavailable Unavailable Cheryl Nair RN Unavailable [phone] Ophelia Lala RN Unavailable Glo Lee RN Unavailable Unavailab Sanam Evans LODGING FACILITIES MANAGER Unavailable Unavailable Hilary Clemens RN Unavailable Unavaila Ruthy Clayton RN Unavailable Unavailable Rayna Partida RN Unavailable Unavailab Artur Nelson RN Unavailable Unavailable Annette Walker LODGING FACILITIES MANAGER Unavailable [phone] Emmie Crain RN Unavailable Unavailable Brigida Enriquez RN Unavailable Unavailable Fidel Rainey RN Unavailable Unavailable Batool Celis MD Unavailable [phone] Ayush Marrero MD Primary Care Provider [phone] Encounter Details Date Type Department Care Team (Late st Contact Info) Description 07/12/2015 Orders Only SEP Gastro [facility] [address] [facility] [address] [place] [address] Stone Cronin MD Social History [...] Description 04/09/2025 3:00 PM EDT Hospital Encounter [facility] [address] [place] [address] Adryan Rowan MD [address] [place] [address] [address] [place] [address] 04/29/2025 9:15 AM EDT Appointment [facility] [place] [address] Batool Celis MD [address] [place] [address] [place] [address] 05/19/2025 2:15 PM EST Office Visit [address] [place] [address] Sin Tran MD [address] [place] [address] 06/09/2025 12:45 PM EST Procedure visit [facility] [address] [place], [place] [id number] Samm Ledesma, PEWTER CASTER [address] [place], [place] [id number] 08/12/2025 10:40 AM EST Appointment [facility] Women's Wellness [address] [facility] [place] [address] Matt Ulrich MD [address] [place] [address] DR [address] [place] [address] documented as of this encounter Procedures Procedure Name Priority Date/Time Associated Diagnosis Comments GMED COLONOSCOPY Routine 07/12/2015 2:30 PM EST documented in this encounter Results * ED COLONOSCOPY (07/12/2015 2:30 PM EST) 07/12/2015 2:30 PM EST Impressions [facility] - 07/12/2015 3:30 PM EST [...] an excerpt of the full report. us Sotne Cronin MD GI PROCEDURE ORDERABLES Doris [email or web address] Result [facility] [address] [place] [address] documented in this encounter Visit Diagnoses Not [...] documented as of this encounter Care Teams Bpo Specialist Relationship Specialty [place] [address] [place] [address] PCP - General 06/21/10 03/08/25 Ayush Marrero MD [address] [place] [address] PCP - General Family Medicine 03/09/25 Leslie Cooley, DIESEL TRUCK TECHNICIAN Glove Examiner 01/28/19 07/15/19 Batool Myers VISUAL MERCHANDISING COORDINATOR Glove Examiner 02/13/19 07/15/19 Arlyn Schmidt MD [address] [place] [address] Consulting Physician Internal Medicine-Endocrinolog y, Diabetes & Metabolism 11/28/20 Cheryl Nair, RN Oncology Nurse Navigator 10/29/2302/05 Tacho Echavarria MD 1 [place] [address] Internal Medicine-Medical Oncology 11/12/23 Matt Ulrich MD 1 [place] [address] Surgery-Surgical Oncology 12/04/23 Hilary Clemens, RN Registered [...] Nurse Infusion Therapy 04/03/24 04/03/24 Sanam Murray, LODGING FACILITIES MANAGER Glove Examiner 04/10/24 07/30/24 Hilary Clemens, RN Registered Nurse Infusion Therapy 04/21/24 04/21/24 Ruthy Walker RN Registered Nurse Infusion Therapy 04/24/24 04/24/24 Rayna Partida, RN Registered Nurse Infusion Clinic 05/01/24 05/01/24 Artur Roberts, RN Registered Nurse Infusion Therapy 05/07/24 05/07/24 Annette Walker, [facility] Glove Examiner 05/13/24 Emmie Crain, RN Registered Nurse Infusion Therapy 05/14/24 05/14/24 Brigida Enriquez, RN Registered Nurse Infusion Clinic 05/21/24 05/21/24 Fidel Rainey, RAUL Registered Nurse Infusion Therapy 05/28/24 05/28/24 Batool Celis MD 1 [facility] [place] [address] Radiation Oncologist Radiology-Radiation Oncology 06/08/24 documented as of this encounter
--- OUTSIDE RECORDS SUMMARY | 2025-04-06 12:27 | XMS_ITS | Encounter Summary ---
Author [place] [address] Care Team Providers Care Store Hand Name Role Phone Chetna Cedeno MD Primary Care Provider [phone] Arlyn Schmidt MD Unavailable [phone] Tacho Echavarria MD Unavailable [phone] Matt Ulrich MD Unavailable [phone] Eze Brock Unavailable Annette Walker Unavailable [phone] Batool Celis MD Unavailable [phone] Reason for Visit * Reason Onset Date Comments Follow-up 02/12/2025 Updated form, lo an deferment form Encounter Details Date Type Department Care Team (Late st Contact Info) Description 02/12/2025 Telephone [facility] Medical Oncology [place], [place] [phone] Eze Rowland MD [address] [place] [id number] Follow-up (Updated form, loan deferment form ) [...] in a fci (including now)? No 11/07/2023 [facility] IP Transportation Answer [...] to fill out for loan deferment via [employer] message. documented in this encounter Plan of Treatment Upcoming Encounters Date Type Department Care Team (Late st Contact Info) Description 04/09/2025 3:00 PM EDT Hospital Encounter [facility] [address] [place] [address] Adryan Rowan MD [address] [facility] [address] [place] [address] 04/29/2025 9:15 AM EDT Appointment [facility] [place] [address] Batool Celis MD 1 [facility] [place] [address] 05/19/2025 2:15 PM EST Office Visit [facility] [address] [address] Sin Tran MD [address] [place] [address] 06/09/2025 12:45 PM EST Procedure visit [facility] [address] [place] [address] Samm Ledesma APRN [address] [facility] [facility] [address] [place] [address] 08/12/2025 10:40 AM EST Appointment [facility] Women's Wellness [facility] Dr[address] Carbajal [facility] Matt Ulrich MD [address] [place] [address] [address] [place] [address] documented as of this encounter Goals Goal Patient Goal Type Associated Problems Recent Progress Patient-Stated? Author Blood Pressure < 140/90 Blood Pressure 123/84(03/24 1:35 PM EDT) No Chetna Cedeno MD Breast [facility] Breast Health On track(2024 11:27 AM EDT) No Jasmin Porter, RAUL Note: Patient acknowledges understanding of new diagnosis, plan of care, available resources and how to contact Nurse Navigator with any future questions or concerns. Breast [facility] Breast Health Not on track(2024 11:27 AM EDT) No Jasmin Porter, RAUL Note: Patient will be compliant with monthly SBE and is aware of who to contact for any unusual or concerning findings. Breast [facility] Breast Health On track(2024 [...] documented as of this encounter Care Teams Store Hand Relationship Specialty [place] [address] [place] [address] PCP - General 06/21/10 03/08/25 Arlyn Schmidt MD [address] [place], [place] [address] Consulting Physician Internal Medicine-Endocrinology, Diabetes & Metabolism 11/28/20 Tacho Echavarria MD 1 [place] [address] Internal Medicine-Medical Oncology 11/12/23 Matt Ulrich MD 1 [place], [place] [id number] Surgery-Surgical Oncology 12/04/23 Eze Brock Pastoral Care 12/13/23 Annette Walker, ARACELI Criminal Psychologist 05/13/24 Batool Celis MD 1 [facility] [place] [address] Radiation Oncologist Radiology-Radiation Oncology 06/08/24 documented as of this encounter
--- OUTSIDE RECORDS SUMMARY | 2025-04-06 12:27 | XMS_ITS | Encounter Summary ---
Author Organization [place] [address] Care Team Providers Care Microbiology Director Name Role Phone Arlyn Schmidt MD Unavailable [phone] Tacho Echavarria MD Unavailable [phone] Matt Ulrich MD Unavailable [phone] Eze Brock Unavailable Annette Walker WINDING INSPECTOR Unavailable [phone] Batool Celis MD Unavailable [phone] Ayush Marrero MD Primary Care Provider [phone] Reason for Visit * Reason Comments Pharmacy Migraine Medication Management Qulipta/Nurtec Encounter Details Date Type Department Care Team (Latest Contact Info) Description 03/30/2025 Specialty Pharmacy [facility] [address] [place] [address] Charlotte Martino CPhT Pharmacy Migraine [...] Date Recorded PHQ-2 Total Score 5 07/07/2024 [facility] [place] of Occupat ional Health - Occupational Stress [...] health care facility (including now)? No 11/07/2023 [facility] IP Transportation Answer D [...] Progress Notes * Charlotte Martino CPhT - 03/30/2025 11:19 AM EDT Specialty Pharmacy Refill Coordination Note Contacted [facility] today regarding refills of Qulipta/Nurtec. Copay amount: $0 Sent [employer] message. Patient informed of copay. * Annamarie Mark CPhT - 03/30/2025 11:19 AM EDT [facility] Processed Qulipta/Nurtec for being delivered by [employer] on 04/02. documented in this encounter Plan of Treatment Upcoming Encounters Date Type Department Care Team (Late st Contact Info) Description 04/09/2025 3:00 PM EDT Hospital Encounter [facility] [address] [place] [address] Adryan Rowan MD [address] [place] [address] [address] [place] [address] 04/29/2025 9:15 AM EDT Appointment [facility] [place] [address] Batool Celis MD [address] [place] [address] [place] [address] 05/19/2025 2:15 PM EST Office Visit [place] [id number] Sin Tran MD [address] [facility] [address] 06/09/2025 12:45 PM EST Procedure visit [facility] [address] [facility] [address] [place] [address] Samm Ledesma, VIRTUALIZATION ARCHITECT [address] [facility] [address] [place] [address] 08/12/2025 10:40 AM EST Appointment [facility] Women's Wellness [place] [address] [facility] [place] [address] Matt Ulrich MD [address] [place] [address] [address] [place] [address] documented as of this encounter Goals Goal [...] documented as of this encounter Care Teams Microbiology Director Relationship Specialty Start Date End Date Ayush Marrero MD [address] [place] [address] PCP - General Family Medicine 03/09/25 Arlyn Schmidt MD [address] [place] [address] Consulting Physician Internal Medicine-Endocrinology, Diabetes & Metabolism 11/28/20 Tacho Echavarria MD 1 [place], [place] [phone] Internal Medicine-Medical Oncology 11/12/23 Matt Ulrich MD 1 [place], [place] [address] Surgery-Surgical Oncology 12/04/23 Eze Brock Pastoral Care 12/13/23 Annette Walker, ARACELI Fish Fryer 05/13/24 Batool Celis MD 1 [facility] [address] Radiation Oncologist Radiology-Radiation Oncology 06/08/24 documented as of this encounter
--- OUTSIDE RECORDS SUMMARY | 2025-04-06 12:27 | XMS_ITS | Encounter Summary ---
Author Organization [place] [address] Care Team Providers Care Makeup Sales Consultant Name Role Phone Chetna Cedeno MD Primary Care Provider [phone] Arlyn Schmidt MD Unavailable [phone] Tacho Echavarria MD Unavailable [phone] Matt Ulrich MD Unavailable [phone] Eze Brock Unavailable Annette Walker Unavailable [phone] Batool Celis MD Unavailable [phone] Encounter Details Date Type Department Care Team (Late st Contact Info) Description 02/15/2025 Telephone [facility] Care Medical Oncology [place], [place] [phone] Tacho Echavarria MD [address] [place] [address] [id number] Social History Tobacco Use Types Packs/Day Years [...] the past 12 months has th e [employer], gas, oil, or water [employer] threatened to shut off services in your home? No 07/07/2024 Social Connection and Isolation Panel Answer Date Recorded In a typical week, how many times do you talk on the phone with family, friends, or neighbors? Once a week 11/07/19 How often do you get togethe r with friends or relatives? Once a week 11/07/2023 How often do you attend chur or mandaen services? 1 to 4 times [...] Recorded PHQ-2 Total Score 5 07/07/2024 [facility] [place] of Occupat ional Health - Occupational Stress [...] in a chcf (including now)? No 11/07/2023 [facility] IP Transportation Answer [...] air conditioning unit will be at the legal receptionist desk on the second floor. Copy also placed in scan pile documented in this encounter Plan of Treatment Upcoming Encounters Date Type Department Care Team (Late st Contact Info) Description 04/09/2025 3:00 PM EDT Hospital Encounter [facility] [address] [place] [address] Adryan Rowan MD [address] [facility] [address] [place] [address] 04/29/2025 9:15 AM EDT Appointment [facility] [place] [address] Batool Celis MD [address] [place] [address] CANCER CARE [place], [place] [phone] 05/19/2025 2:15 PM EST Office Visit [facility] [place] [address] [facility] [address] [place] [address] Sin Tran MD [address] [place] [address] 06/09/2025 12:45 PM EST Procedure visit [facility] [address] [facility] [address] [place], [place] [phone] Samm Ledesma MECHANICAL ENGINEERING MANAGER [address] [facility] [address] [facility] [address] [place] [address] 08/12/2025 10:40 AM EST Appointment [facility] Women's Wellness [facility] [place] [id number] Matt Ulrich MD [address] [place] [address] MUSA Zari MERGED [place] [address] documented as of this encounter Goals Goal [...] any unusual or concerning findings. Breast [facility] Breast Health On [...] documented as of this encounter Care Teams Makeup Sales Consultant Relationship Specialty [place] [address] [place] [address] PCP - General 06/21/10 03/08/25 Arlyn Schmidt MD [address] [place], [place] [id number] Consulting Physician Internal Medicine-Endocrinology, Diabetes & Metabolism 11/28/20 Tacho Echavarria MD 1 [place], [place] [phone] Internal Medicine-Medical Oncology 11/12/23 Matt Ulrich MD 1 [place], [place] [phone] Surgery-Surgical Oncology 12/04/23 Eze Brock Pastoral Care 12/13/23 Annette Walker, LEG ASSEMBLER Tube Pusher 05/13/24 Batool Celis MD 1 [facility] CANCER [place], [place] [address] Radiation Oncologist Radiology-Radiation Oncology 06/08/24 documented as of this encounter
--- OUTSIDE RECORDS SUMMARY | 2025-04-06 12:27 | XMS_ITS | Clinical Summary ---
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 through premarket FDA review. [facility] is certified under CLIA-88 and accredited by the [employer] [place] [employer] as qualified to perform high-complexity testing. This test is approved for clinical use by the [facility]. This test should not be regarded as investigational or for research. *Genomic DNA was analyzed by PCR using [employer] TaqMan and/or MoodsnapQ probe-based methods to interrogate the variant locations [...] are associated with more than one haplotype, [facility] infers and reports the most likely diplotype [...] Call. *The variant detection methods validated by [facility] provide >99.9% accuracy for the adult population; [...] Clara through the website or by calling [phone]. Blood 01/06/2025 01/22/2025 Narrative [facility] - 01/27/2025 This result has genomic variants that were not included in this document. us Aury Delgado MD [facility] ORDERABLES Final Result CLARA [address] [facility] [address] [phone] * MM MAMMO DIGITAL STEPHANE DIAGN RIGHT (01/27/2024 11:20 AM EDT) Anatomical Region Laterality Modality Breast Right Mammography 01/27/2024 12:5 7 PM EDT Impressions 01/27/2024 12:57 PM EDT Incomplete-need additional imaging evaluation ([id number]) ~ RECOMMENDATION: Ultrasound of the right breast. [...] the next mammogram, in accordance with the [place] [employer] and the Society of [...] sinceprior. ~ IMPRESSION: Incomplete-need additional imaging evaluation ([id number]) ~ RECOMMENDATION: Ultrasound of the right breast. [...] the next mammogram, in accordance with the [place] [employer] and the Society of Breast Imaging recommendations. Jeanette Smith APRN IM MAMMOGRAPHY ORDERABLES Final Result * GMED COLONOSCOPY [...] Doris mcmahon Result [facility] 1 [place] [address] from Last 3 Months or Most Recently Relevant to Health Maintenance Insurance MDR [place] [id number] MDR [facility] [id number] MDR Advance Directives For more information, please contact: [phone] * Full Code (Latest Code Status on File) Date Activated Date Inactivated Comments 05/01/2017 2:57 PM 05/03/2017 5:30 PM Care Teams Ham Rolling Machine Operator Relationship Specialty Start Date End Date Ayush Marrero MD [address] [place] [address] PCP - General Family Medicine 03/09/25 Arlyn Schmidt MD [address] [place] [address] Consulting Physician Internal Medicine-Endocrinology, Diabetes & Metabolism 11/28/20 Tacho Echavarria MD 1 [place] [address] Internal Medicine-Medical Oncology 11/12/23 Matt Ulrich MD 1 [place] [address] Surgery-Surgical Oncology 12/04/23 Eze Brock Pastoral Care 12/13/23 Annette Walker, ARACELI Package Reinspector 05/13/24 Batool Celis MD [address] [place] [address] Radiation Oncologist Radiology-Radiation Oncology 06/08/24
--- OUTSIDE RECORDS SUMMARY | 2025-04-06 12:27 | XMS_ITS | Encounter Summary ---
Author Organization [place] [address] Care Team Providers Care Line Maintenance Supervisor Name Role Phone Kit Cedeno MD Primary Care Provider [phone] Arlyn Schmidt MD Unavailable [phone] Cheryl Nair RN Unavailable [phone] Tacho Echavarria MD Unavailable [phone] Matt Ulrich MD Unavailable [phone] Hilary Clemens RN Unavailable Unavaila Eze Caro Unavailable Shila Albrecht RN Unavailable Unavail able Cheyanne To RN Unavailable Unavailabl Rayna Wong RN Unavailable Unavailab Shilpa Olivarez RN Unavailable [phone] Tulio Duong RN Unavailable Unavailable Yaquelin Weaver RN Unavailable Unavailable Pam Wang RN Unavailable Unavailable Jazmín Nair RN Unavailable Unavailable Fidel Rainey RN Unavailable Unavailable Cheryl Nair RN Unavailable [phone] Ophelia Lala RN Unavailable Glo Lee RN Unavailable Unavailab Sanam Evans COOK ITALIAN STYLE FOOD Unavailable Unavailable Hilary Clemens RN Unavailable Unavaila Ruthy Clayton RN Unavailable Unavailable Rayna Partida RN Unavailable Unavailab Artur Nelson RN Unavailable Unavailable Annette Walker [employer] ITALIAN [employer]YLE [employer]OD Unavailable [phone] Emmie Crain RN Unavailable Unavailable Brigida Enriquez RN Unavailable Unavailable Fidel Rainey RN Unavailable Unavailable Batool Celis MD Unavailable [phone] Ayush Marrero MD Primary Care Provider [phone] Encounter Details Date Type Department Care Team (Late st Contact Info) Description 10/25/2023 Orders Only [facility] One [facility] [place] [address] Diane Ellis MD 1 [place] [address] Social History Tobacco Use [...] Description 04/09/2025 3:00 PM EDT Hospital Encounter [facility] [address] [place] [address] Adryan Rowan MD [address] [facility] [address] [place] [address] 04/29/2025 9:15 AM EDT Appointment [facility] [place] [address] Batool Celis MD [address] [place] [address] [place] [address] 05/19/2025 2:15 PM EST Office Visit [facility] [address] [place] [address] Sin Tran MD [address] [place] [address] 06/09/2025 12:45 PM EST Procedure visit [facility] [address] [place], [place] [id number] Samm Ledesma, PROFESSOR COMPUTER SCIENCE [address] [place] [address] 08/12/2025 10:40 AM EST Appointment [facility] Women's Wellness [place] One [facility] [place] [address] Matt Ulrich MD [address] [place] [address] [address] [place] [address] documented as of this encounter Goals Goal Patient Goal Type Associated Problems Recent Progress Patient-Stated? Author Blood Pressure < 140/90 Blood Pressure 123/84(2024 1:35 PM EDT) Kit Hsu MD Maintain a healthy diet, exercise regularly and maintain an ideal body weight General No Sanam Julio MA documented as of this encounter Procedures Procedure Name Priority Date/Time Associated Diagnosis Comments NEOGENOMICS HER2 BREAST Routine 10/25/2023 10:44 AM EDT documented in this encounter Results * NEOGENOMICS HER2 BREAST (10/25/2023 10:44 AM EDT) 10/25/2023 10:4 4 AM EDT Narrative [facility] - 11/06/2023 7:12 PM EDT Requesting Provider: KIT Womack Specimen = [id number] us Diane Ellis MD PATHOLOGY ORDERABLES Final Resul t [facility] 1 [place] [address] documented in this encounter Visit Diagnoses Not on filedocumented in this encounter Additional Health Concerns Infection Onset Date Last Indicated Resolved Time COVID-19 09/04/2024 09/04/2024 09/24/2024 10:1 2 PM EDT documented as of this encounter Care Teams Line Maintenance Supervisor Relationship Specialty [place] [address] [place] [address] PCP - General 06/21/10 03/08/25 Ayush Marrero MD [address] [place] [address] PCP - General Family Medicine 03/09/25 Arlyn Schmidt MD [address] [place] [address] Consulting Physician Internal Medicine-Endocrinolog y, Diabetes & Metabolism 11/28/20 Cheryl Nair, RN Oncology Nurse Navigator 10/29/2302/05 Tacho Echavarria MD 1 [place], [place] [address] Internal Medicine-Medical Oncology 11/12/23 Matt Ulrich MD 1 [place], [place] [id number] Surgery-Surgical Oncology 12/04/23 Hilary Clemens, RN Registered [...] Murray, [facility] Asphalt Dauber 04/10/24 07/30/24 Hilary Clemens, RN Registered Nurse Infusion Therapy 04/21/24 04/21/24 Ruthy Walker RN Registered Nurse Infusion Therapy 04/24/24 04/24/24 Rayna Partida, RN Registered Nurse Infusion Clinic 05/01/24 05/01/24 Artur Roberts RN Registered Nurse Infusion Therapy 05/07/24 05/07/24 Annette Walker, [facility] Asphalt [place] 05/13/24 Emmie Crain, RN Registered Nurse Infusion Therapy 05/14/24 05/14/24 Brigida Enriquez, RN Registered Nurse Infusion Clinic 05/21/24 05/21/24 Fidel Rainey, RN Registered Nurse Infusion Therapy 05/28/24 05/28/24 Batool Celis MD [address] [place] [address] [place] [address] Radiation Oncologist Radiology-Radiation Oncology 06/08/24 documented as of this encounter
--- OUTSIDE RECORDS SUMMARY | 2025-04-06 12:27 | XMS_ITS | Encounter Summary ---
Author Organization [place] Address One [facility] [address] [facility] [place] [address] Care Team Providers Care Software Configuration Engineer Name Role Phone Chetna Cedeno MD Primary Care Provider Arlyn Schmidt MD Unavailable [phone] Tacho Echavarria MD Unavailable [phone] Matt Ulrich MD Unavailable Eze Brock Unavailable Cheryl Nair RN Unavailable [phone] Sanam Murray SOLE ROUNDING MACHINE OPERATOR Unavailable Unavailable Annette Walker SOLE ROUNDING MACHINE OPERATOR Unavailable [phone] Batool Celis MD Unavailable [phone] Ayush Marrero MD Primary Care Provider [phone] Encounter Details Date Type Department Care Team (Late st Contact Info) Description 07/06/2024 Orders Only [facility] One [facility] [place] [address] Shilpa Tan MD [address] [place] [address] Social History Tobacco Use Types Packs/Day Years [...] Score 5 07/07/2024 [facility] - Occupational Stress Questionnaire Answer Date [...] a senior living (including now)? No [facility]20[facility] Transportation Answer [...] 07/06/2024 4:32 PM Kayal Lee RN * [place] Suicide Severity Rating Scale (Q shift for [...] question 6) 0 07/06/2024 4:32 PM Kayla Lee R N 6. Have you ever done [...] Description 04/09/2025 3:00 PM EDT Hospital Encounter [facility] [address] [place] [address] Adryan Rowan MD [address] [place] [address] 04/29/2025 9:15 AM EDT Appointment [facility] [place] [address] Batool Celis MD [address] [place] [address] CANCER CARE [place], [place] [address] 05/19/2025 2:15 PM EST Office Visit [address] [place] [address] Sin Tran MD [address] [place] [address] 06/09/2025 12:45 PM EST Procedure visit [facility] [address] [facility] [address] [place] [address] Samm Ledesma, LEYLA [address] [address] [place] [address] 08/12/2025 10:40 AM EST Appointment [facility] Women's Wellness [facility] [place] [id number] Matt Ulrich MD [address] [place] [address] [address] [place], [place] [id number] documented as of this encounter Goals Goal [...] 07/06/2024 12:5 1 PM EST Narrative [facility] - 09/24/2024 2:31 PM EDT Requesting Provider: MATT Womack Specimen = [id number] us Shilpa Tan MD PATHOLOGY ORDERABLES Final R esult [facility] 1 [place] [address] documented in this encounter Visit Diagnoses Not on filedocumented in this encounter Additional Health Concerns Infection Onset Date Last Indicated Resolved Time COVID-19 09/04/2024 09/04/2024 09/24/2024 10:1 2 PM EDT Assessment Noted Time PHQ-9 Depression Total Score: 12 024 12:00 PM EDT documented as of this encounter Care Teams Software Configuration Engineer Relationship Specialty [place] [address] [place] [address] PCP - General 06/21/10 03/08/25 Ayush Marrero MD [address] [place] [address] PCP - General Family Medicine 03/09/25 Arlyn Schmidt MD [address] [place] [address] Consulting Physician Internal Medicine-Endocrinology , Diabetes & Metabolism 11/28/20 Tacho Echavarria MD 1 [place], [place] [id number] Internal Medicine-Medical Oncology 11/12/23 Matt Ulrich MD 1 [place] [address] Surgery-Surgical Oncology 12/04/23 Eze Brock Pastoral Care 12/13/23 Cheryl Nair, RN Oncology Nurse Navigator 03/25/2412/13 Sanam Murray MSW Entry Level Financial Analyst 04/10/24 07/30/24 Annette Walker MSW Entry Level Financial Analyst 05/13/24 Batool Celis MD 1 [facility] [place] [address] Radiation Oncologist Radiology-Radiation Oncology 06/08/24 documented as of this encounter
--- OUTSIDE RECORDS SUMMARY | 2025-04-06 12:27 | XMS_ITS | Encounter Summary ---
Author Organization [place] [address] Care Team Providers Care Water Project Manager Name Role Phone Chetna Cedeno MD Primary Care Provider [phone] Arlyn Schmidt MD Unavailable [phone] Tacho Echavarria MD Unavailable [phone] Matt Ulrich MD Unavailable [phone] Eze Brock Unavailable Shilpa Cline RN Unavailable [phone] Cheryl Nair RN Unavailable [phone] Ophelia Lala RN Unavailable Glo Lee RN Unavailable Unavailab Sanam Evans TELEPHONIC RN Unavailable Unavailable Hilary Clemens RN Unavailable Unavaila Ruthy Clayton RN Unavailable Unavailable Rayna Partida RN Unavailable Unavailab Artur Nelson RN Unavailable Unavailable Annette Walker TELEPHONIC RN Unavailable [phone] Emmie Crain RN Unavailable Unavailable Brigida Enriquez RN Unavailable Unavailable Fidel Rainey RN Unavailable Unavailable Batool Celis MD Unavailable [phone] Ayush Marrero MD Primary Care Provider [phone] Encounter Details Date Type Department Care Team (Late st Contact Info) Description 03/18/2024 Lab Requisition [facility] One [facility] [place] [address] Provider, Unknown Malignant neoplasm of unspecified site [...] Never 11/07/2023 Social Connection and Isolation Panel Answer Date [...] Date Recorded PHQ-2 Total Score 0 11/07/2023 [facility] [...] in a snf (including now)? No 11/07/2023 Education Answer Date [...] Description 04/09/2025 3:00 PM EDT Hospital Encounter [facility] [address] [place] [address] Adryan Rowan MD [address] [facility] [address] [place] [address] 04/29/2025 9:15 AM EDT Appointment [place] [address] Batool Celis MD [address] [place] [address] [place] [address] 05/19/2025 2:15 PM EST Office Visit [facility] [address] [facility] [address] [place] [address] Sin Tran MD [address] [place] [address] 06/09/2025 12:45 PM EST Procedure visit [facility] [address] [facility] [address] [place], [place] [address] Samm Ledesma, LOADING MACHINE ADJUSTER [address] [facility] [address] [place] [address] 08/12/2025 10:40 AM EST Appointment [facility] Women's Wellness [facility] [place] [address] Matt Ulrich MD [address] [facility] [address] [place] [address] documented as of this encounter [...] EDT) CASE REPORT Surgical Pathology Report Case: [id number] Authorizing Provider: Provider, Unknown Collected: 03/18/2024 1327 Ordering Location: [facility] Received: 03/18/2024 1327 Pathologist: Diane Ellis MD Specimen: Breast, Right, Request for case [id number] slides to [facility] Pathology. 05/04/2024 1:26 PM EDT [facility] FINAL DIAGNOSIS Results will be scanned in this case as an addendum. 05/04/2024 1:26 PM EDT [facility] at 1329 EDT EMBEDDED IMAGES 05/04/2024 1:26 PM EDT [facility] ADDENDUM Refer to [facility] Surgical Pathology Report. 05/04/2024 1:26 PM EDT [facility] Addendum electronically signed by Diane Ellis MD on 05/04/2024 at 1326 EDT Tissue RIGHT BREAST STRUCTURE / Unknown 03/18/2024 1:27 PM EDT 03/18/2024 1:27 PM EDT us Unknown Provider PATHOLOGY ORDERABLES Edited Res ult - [facility] [address] [place] [id number] documented in this encounter Visit Diagnoses Diagnosis Malignant neoplasm of unspecified site of right female breast (HCC) documented in this encounter Additional Health Concerns Infection Onset Date Last Indicated Resolved Time COVID-19 09/04/2024 09/04/2024 09/24/2024 10:1 2 PM EDT Assessment Noted Time PHQ-9 Depression Total Score: 12 024 12:00 PM EDT documented as of this encounter Care Teams Water Project Manager Relationship Specialty [place] [address] [place] [address] PCP - General 06/21/10 03/08/25 Ayush Marrero MD [address] [place] [address] PCP - General Family Medicine 03/09/25 Arlyn Schmidt MD [address] [place] [address] Consulting Physician Internal Medicine-Endocrinolog y, Diabetes & Metabolism 11/28/20 Tacho Echavarria MD 1 [place], [place] [phone] Internal Medicine-Medical Oncology 11/12/23 Matt Ulrich MD 1 [place] [address] Surgery-Surgical Oncology 12/04/23 Eze Brock Pastoral Care 12/13/23 Shilpa Cline, RN Oncology Nurse Navigator 02/04/2403/09 Cheryl Nair, RN Oncology Nurse Navigator 03/25/2412/13 Ophelia Lala, RN Registered Nurse Infusion Therapy 03/27/24 03/27/24 Glo Lee, RN Registered Nurse Infusion Therapy 04/03/24 04/03/24 Sanam Murray, [facility] Grounds Manager 04/10/24 07/30/24 Hilary Clemens, RN Registered Nurse Infusion Therapy 04/21/24 04/21/24 Ruthy Walker RN Registered Nurse Infusion Therapy 04/24/24 04/24/24 Rayna Partida, RN Registered Nurse Infusion Clinic 05/01/24 05/01/24 Artur Roberts RN Registered Nurse Infusion Therapy 05/07/24 05/07/24 Annette Walker, TELEPHONIC RN Grounds Manager 05/13/24 Emmie Crain, RN Registered Nurse Infusion Therapy 05/14/24 05/14/24 Brigida Enriquez, RN Registered Nurse Infusion Clinic 05/21/24 05/21/24 Fidel Rainey, RN Registered Nurse Infusion Therapy 05/28/24 05/28/24 Batool Celis MD [address] [place] [address] [place] [address] Radiation Oncologist Radiology-Radiation Oncology 06/08/24 documented as of this encounter
--- OUTSIDE RECORDS SUMMARY | 2025-04-06 12:27 | XMS_ITS | Encounter Summary ---
Author [place] [address] Care Team Providers Care Commercial Parts Professional Name Role Phone Kit Cedeno MD Primary Care Provider [phone] Arlyn Schmidt MD Unavailable [phone] Cheryl Nair RN Unavailable [phone] Tacho Echavarria MD Unavailable [phone] Matt Ulrich MD Unavailable [phone] Hilary Clemens RN Unavailable Unavaila Eze Caro Unavailable Shila Albrecht RN Unavailable Unavail able Cheyanne To RN Unavailable Unavailabl Rayna Wong RN Unavailable Unavailab Shilpa Olivarez RN Unavailable [phone] Tulio Duong RN Unavailable Unavailable Yaquelin Weaver RN Unavailable Unavailable Pam Wang RN Unavailable Unavailable Jazmín Nair RN Unavailable Unavailable Fidel Rainey RN Unavailable Unavailable Cheryl Nair RN Unavailable [phone] Ophelia Lala RN Unavailable Glo Lee RN Unavailable Unavailab Sanam Evans JOB COACHING Unavailable Unavailable Hilary Clemens RN Unavailable Unavaila Ruthy Clayton RN Unavailable Unavailable Rayna Partida RN Unavailable Unavailab Artur Nelson RN Unavailable Unavailable Annette Walker JOB COACHING Unavailable [phone] Emmie Crain RN Unavailable Unavailable Brigida Enriquez RN Unavailable Unavailable Fidel Rainey RN Unavailable Unavailable Batool Celis MD Unavailable [phone] Ayush Marrero MD Primary Care Provider [phone] Encounter Details Date Type Department Care Team (Late st Contact Info) Description 10/25/2023 Orders Only [facility] [place] [address] Diane Ellis MD 1 [place] [address] Social History Tobacco Use Types [...] Description 04/09/2025 3:00 PM EDT Hospital Encounter Mobile MRI [address] [place] [address] Adryan Rowan MD [address] [facility] [address] [place] [address] 04/29/2025 9:15 AM EDT Appointment [facility] [place] [address] Batool Celis MD [address] [place] [address] [place] [address] 05/19/2025 2:15 PM EST Office Visit [facility] [address] [place] [address] Sin Tran MD [address] [place] [address] 06/09/2025 12:45 PM EST Procedure visit [facility] [address] [place], [place] [address] Samm Ledesma, CUSTOMER EXPERIENCE RETAIL CLERK [address] [place] [address] 08/12/2025 10:40 AM EST Appointment [facility] Women's Wellness [place] [place] [address] Matt Ulrich MD [address] [place] [address] [address] [place] [address] documented as of this encounter [...] EDT) 10/25/2023 10:4 4 AM EDT Narrative [facility] - 11/11/2023 7:42 AM EDT Requesting Provider: KIT Womack Specimen = [id number] us Diane Ellis MD PATHOLOGY ORDERABLES Final Resul t [facility] 1 [place] [address] documented in this encounter Visit Diagnoses Not on filedocumented in this encounter Additional Health Concerns Infection Onset Date Last Indicated Resolved Time COVID-19 09/04/2024 09/04/2024 09/24/2024 10:1 2 PM EDT documented as of this encounter Care Teams Commercial Parts Professional Relationship Specialty [place] [address] [place] [address] PCP - General 06/21/10 03/08/25 Ayush Marrero MD [address] [place] [address] PCP - General Family Medicine 03/09/25 Arlyn Schmidt MD [address] [place] [address] Consulting Physician Internal Medicine-Endocrinolog y, Diabetes & Metabolism 11/28/20 Cheryl Nair RN Oncology Nurse Navigator 10/29/2302/05 Tacho Echavarria MD 1 [place] [address] Internal Medicine-Medical Oncology 11/12/23 Matt Ulrich MD 1 [place], [place] [address] Surgery-Surgical Oncology 12/04/23 Hilary Clemens, RN Registered [...] Sanam Murray, [facility] Document Clerk 04/10/24 07/30/24 Hilary Clemens, RN Registered Nurse Infusion Therapy 04/21/24 04/21/24 Ruthy Walker RN Registered Nurse Infusion Therapy 04/24/24 04/24/24 Rayna Partida, RN Registered Nurse Infusion Clinic 05/01/24 05/01/24 Artur Roberts RN Registered Nurse Infusion Therapy 05/07/24 05/07/24 Annette Walker, JOB COACHING Document Clerk 05/13/24 Emmie Crain, RN Registered Nurse Infusion Therapy 05/14/24 05/14/24 Brigida Enriquez, RN Registered Nurse Infusion Clinic 05/21/24 05/21/24 Fidel Rainey, RN Registered Nurse Infusion Therapy 05/28/24 05/28/24 Batool Celis MD [address] [place] [address] [place] [address] Radiation Oncologist Radiology-Radiation Oncology 06/08/24 documented as of this encounter
--- OUTSIDE RECORDS SUMMARY | 2025-04-06 12:27 | XMS_ITS | Encounter Summary ---
Author Organization [facility] Address One [facility] [place] [address] Care Team Providers Care Supervisor Lime Name Role Phone Chetna Cedeno MD Primary Care Provider Arlyn Schmidt MD Unavailable [phone] Tacho Echavarria MD Unavailable Matt Ulrich MD Unavailable Eze Brock Unavailable Cheryl Nair RN Unavailable [phone] Sanam Murray BOTTLE GAUGER Unavailable Unavailable Annette Walker BOTTLE GAUGER Unavailable [phone] Batool Celis MD Unavailable [phone] Ayush Marrero MD Primary Care Provider [phone] Encounter Details Date Type Department Care Team (Late st Contact Info) Description 07/06/2024 Orders Only [facility] [place] [address] Shilpa Tan MD [address] [place] [address] Social History Tobacco Use Types Packs/Day Years [...] 5 07/07/2024 [facility] - Occupational Stress Questionnaire Answer Date [...] in a snf (including now)? No 11/07/2023 [facility] IP Transportation Answer D [...] 07/06/2024 4:32 PM Kayla Lee RN * [place] Suicide Severity Rating Scale (Q shift for [...] Description 04/09/2025 3:00 PM EDT Hospital Encounter [facility] [address] [place] [address] Adryan Rowan MD [address] [place] [address] 04/29/2025 9:15 AM EDT Appointment [place] [address] Batool Celis MD [address] [place] [address] CANCER CARE [place], [place] [address] 05/19/2025 2:15 PM EST Office Visit [address] [place] [address] Sin Tran MD [address] [place] [address] 06/09/2025 12:45 PM EST Procedure visit [facility] [address] [place] [address] Samm Ledesma, LEYLA [address] [place] [address] 08/12/2025 10:40 AM EST Appointment [facility] Women's Wellness [facility] [place] [id number] Matt Ulrich MD [address] [place] [address] [address] [place], [place] [address] documented as of this encounter Goals Goal [...] 12:5 1 PM EST Narrative [facility] - 09/24/2024 2:57 PM EDT Requesting Provider: MATT Womack Specimen = [id number] us Shilpa Tan MD PATHOLOGY ORDERABLES Final R esult [facility] 1 [place] [address] documented in this encounter Visit Diagnoses Not on filedocumented in this encounter Additional Health Concerns Infection Onset Date Last Indicated Resolved Time COVID-19 09/04/2024 09/04/2024 09/24/2024 10:1 2 PM EDT Assessment Noted Time PHQ-9 Depression Total Score: 12 024 12:00 PM EDT documented as of this encounter Care Teams Supervisor Lime Relationship Specialty [place] [address] [place] [address] PCP - General 06/21/10 03/08/25 Ayush Marrero MD [address] [place] [address] PCP - General Family Medicine 03/09/25 Arlyn Schmidt MD [address] [place] [address] Consulting Physician Internal Medicine-Endocrinology , Diabetes & Metabolism 11/28/20 Tacho Echavarria MD 1 [place], [place] [address] Internal Medicine-Medical Oncology 11/12/23 Matt Ulrich MD 1 [place] [address] Surgery-Surgical Oncology 12/04/23 Eze Brock Pastoral Care 12/13/23 Cheryl Nair, RN Oncology Nurse Navigator 03/25/2412/13 Sanam Murray MSW Environmental Field Professional 04/10/24 07/30/24 Annette Walker MSW Environmental Field Professional 05/13/24 Batool Celis MD 1 [facility] [place] [address] Radiation Oncologist Radiology-Radiation Oncology 06/08/24 documented as of this encounter
--- OUTSIDE RECORDS SUMMARY | 2025-04-06 12:27 | XMS_ITS | Encounter Summary ---
Author Organization [place] [address] Care Team Providers Care Neurology Epilepsy Physician Name Role Phone Kit Cedeno MD Primary Care Provider [phone] Arlyn Schmidt MD Unavailable [phone] Cheryl Nair RN Unavailable [phone] Tacho Echavarria MD Unavailable [phone] Matt Ulrich MD Unavailable [phone] Hilary Clemens RN Unavailable Unavaila Eze Caro Unavailable Shila Albrecht RN Unavailable Unavail able Cheyanne To RN Unavailable Unavailabl Rayna Wong RN Unavailable Unavailab Shilpa Olivarez RN Unavailable [phone] Tulio Duong RN Unavailable Unavailable Yaquelin Weaver RN Unavailable Unavailable Pam Wang RN Unavailable Unavailable Jazmín Nair RN Unavailable Unavailable Fidel Rainey RN Unavailable Unavailable Cheryl Nair RN Unavailable [phone] Ophelia Lala RN Unavailable Glo Lee RN Unavailable Unavailab Sanam Evans PNEUMATIC JACKETER Unavailable Unavailable Hliary Clemens RN Unavailable Unavaila Ruthy Clayton RN Unavailable Unavailable Rayna Partida RN Unavailable Unavailab Artur Nelson RN Unavailable Unavailable Annette Walker PNEUMATIC JACKETER Unavailable [phone] Emmie Crain RN Unavailable Unavailable Brigida Enriquez RN Unavailable Unavailable Fidel Rainey RN Unavailable Unavailable Batool Celis MD Unavailable [phone] Ayush Marrero MD Primary Care Provider [phone] Encounter Details Date Type Department Care Team (Late st Contact Info) Description 10/25/2023 Orders Only [facility] One [facility] [place] [address] Diane Ellis MD 1 [place] [address] Social History Tobacco Use Types [...] Description 04/09/2025 3:00 PM EDT Hospital Encounter [facility] [address] [place] [address] Adryan Rowan MD [address] [facility] [address] [place] [address] 04/29/2025 9:15 AM EDT Appointment [place] [address] Batool Celis MD [address] [place] [address] [place] [address] 05/19/2025 2:15 PM EST Office Visit [facility] [address] [place] [address] Sin Tran MD [address] [place] [address] 06/09/2025 12:45 PM EST Procedure visit [facility] [address] [place], [place] [address] Samm Ledesma, SCROLL SAW OPERATOR [address] [place] [address] 08/12/2025 10:40 AM EST Appointment [facility] Women's Wellness [place] [address] Matt Ulrich MD [address] [place] [address] 254 [place] [address] documented as of this encounter Goals Goal [...] EDT) 10/25/2023 10:4 4 AM EDT Narrative [facility] - 11/11/2023 2:42 PM EDT Requesting Provider: KIT Womack Specimen = [id number] us Diane Ellis MD PATHOLOGY ORDERABLES Final Resul t [facility] 1 [place] [address] documented in this encounter Visit Diagnoses Not on filedocumented in this encounter Additional Health Concerns Infection Onset Date Last Indicated Resolved Time COVID-19 09/04/2024 09/04/2024 09/24/2024 10:1 2 PM EDT documented as of this encounter Care Teams Neurology Epilepsy Physician Relationship Specialty [place] [address] [place] [address] PCP - General 06/21/10 03/08/25 Ayush Marrero MD [address] [place], [place] [address] PCP - General Family Medicine 03/09/25 Arlyn Schmidt MD [address] [place], [place] [address] Consulting Physician Internal Medicine-Endocrinolog y, Diabetes & Metabolism 11/28/20 Cheryl Nair, RN Oncology Nurse Navigator 10/29/2302/05 Tacho Echavarria MD 1 [place], [place] [address] Internal Medicine-Medical Oncology 11/12/23 Matt Ulrich MD 1 [place] [address] Surgery-Surgical Oncology 12/04/23 Hilary Clemens, RN Registered [...] Nurse Infusion Therapy 04/03/24 04/03/24 Sanam Murray, [facility] Microgrinder Operator 04/10/24 07/30/24 Hilary Clemens, RN Registered Nurse Infusion Therapy 04/21/24 04/21/24 Ruthy Walker, RN Registered Nurse Infusion Therapy 04/24/24 04/24/24 Rayna Partida, RN Registered Nurse Infusion Clinic 05/01/24 05/01/24 Artur Roberts RN Registered Nurse Infusion Therapy 05/07/24 05/07/24 Annette Walker, [facility] Microgrinder Operator 05/13/24 Emmie Crain, RN Registered Nurse Infusion Therapy 05/14/24 05/14/24 Brigida Enriquez, RN Registered Nurse Infusion Clinic 05/21/24 05/21/24 Fidel Rainey, RN Registered Nurse Infusion Therapy 05/28/24 05/28/24 Batool Celis MD [address] [place] [address] [place] [address] Radiation Oncologist Radiology-Radiation Oncology 06/08/24 documented as of this encounter
--- OUTSIDE RECORDS SUMMARY | 2025-04-06 12:27 | XMS_ITS | Encounter Summary ---
Author [place] [address] Care Team Providers Care Shipping Support Clerk Name Role Phone Chetna Cedeno MD Primary Care Provider Arlyn Schmidt MD Unavailable [phone] Tacho Echvaarria MD Unavailable [phone] Matt Ulrich MD Unavailable [phone] Eze Brock Unavailable Cheryl Nair RN Unavailable [phone] Annette Walker PROGRAM ADVOCATE Unavailable [phone] Batool Celis MD Unavailable [phone] Encounter Details Date Type Department Care Team (Late st Contact Info) Description 12/07/2024 Results Follow-Up [facility] [address] [facility] [address] King Oliva MD [address] [place] [address] PATHOLOGY TISSUE REQUEST Social History Tobacco Use [...] a senior living (including now)? No 11/07/2023 [facility] IP [...] Description 04/09/2025 3:00 PM EDT Hospital Encounter [facility] [address] [place] [address] Adryan Rowan MD [address] [facility] [address] [place] [address] 04/29/2025 9:15 AM EDT Appointment [facility] ONC [place], [place] [address] Batool Celis MD [address] [place] [address] CANCER CARE [place], [place] [address] 05/19/2025 2:15 PM EST Office Visit [facility] [address] [address] Sin Tran MD [address] [place] [address] 06/09/2025 12:45 PM EST Procedure visit [facility] [address] [facility] [address] [place] [address] Samm Ledesma APRN [address] [facility] [address] [place], [place] [address] 08/12/2025 10:40 AM EST App[facility] Women's Wellness [facility] [place] [address] Matt Ulrich MD [address] [facility] [place] [address] documented as of this encounter Goals Goal [...] documented as of this encounter Care Teams Shipping Support Clerk Relationship Specialty [place] [address] [address] [place] [address] PCP - General 06/21/10 03/08/25 Arlyn Schmidt MD [address] [place], [place] [address] Consulting Physician Internal Medicine-Endocrinology , Diabetes & Metabolism 11/28/20 Tacho Echavarria MD 1 [place], [place] [address] Internal Medicine-Medical Oncology 11/12/23 Matt Ulrich MD 1 [place] [address] Surgery-Surgical Oncology 12/04/23 Eze Brock Pastoral Care 12/13/23 Cheryl Nair, RN Oncology Nurse Navigator 03/25/2412/13 Annette Walker, PROGRAM ADVOCATE Bee Keeper 05/13/24 Batool Celis MD 1 [facility] [place], [place] [address] Radiation Oncologist Radiology-Radiation Oncology 06/08/24 documented as of this encounter
--- OUTSIDE RECORDS SUMMARY | 2025-04-06 12:27 | XMS_ITS | Encounter Summary ---
Author Organization [place] [address] Care Team Providers Care Drawstring Knotter Name Role Phone Chetna Cedeno MD Primary Care Provider [phone] Arlyn Schmidt MD Unavailable [phone] Tacho Echavarria MD Unavailable [phone] Matt Ulrich MD Unavailable [phone] Eze Brock Unavailable Cheryl Nair RN Unavailable [phone] Annette Walker STEAMBOAT PILOT Unavailable [phone] Batool Celis MD Unavailable [phone] Ayush Marrero MD Primary Care Provider [phone] Encounter Details Date Type Department Care Team (Late st Contact Info) Description 10/27/2024 Orders Only [facility] Physical Therapy [place] [address] [place] [address] [address] [place] [address] Shaunna Workman PT Social History [...] in a snf (including now)? No 11/07/2023 [facility] [...] 10:36 AM EDT Rodolfo Jc RN * [place] Suicide Severity Rating Scale (Q shift for [...] to question 6) 0 11/22/2024 10:36 AM EDT Rodolfo Jc RN 6. Have you ever [...] Description 04/09/2025 3:00 PM EDT Hospital Encounter [facility] [address] [place] [address] Adryan Rowan MD [address] [place] [address] 04/29/2025 9:15 AM EDT Appointment [place] [address] Batool Celis MD 1 [facility] [place] [address] 05/19/2025 2:15 PM EST Office Visit [facility] [address] [facility] [address] [place] [address] Sin Tran MD [address] [facility] [address] 06/09/2025 12:45 PM EST Procedure visit [facility] [address] [place] [address] Samm Ledesma APRN [address] [address] [place] [address] 08/12/2025 10:40 AM EST Appointment [facility] Women's Wellness [place] One [facility] [place] [address] Matt Ulrich MD [address] [place] [address] 254 [place] [address] documented as of this encounter Goals Goal [...] documented as of this encounter Care Teams Drawstring Knotter Relationship Specialty [place] [address] [place] [address] PCP - General 06/21/10 03/08/25 Ayush Marrero MD [address] [place] [address] PCP - General Family Medicine 03/09/25 Arlyn Schmidt MD [address] [place] [address] Consulting Physician Internal Medicine-Endocrinology , Diabetes & Metabolism 11/28/20 Tacho Echavarria MD 1 [place] [address] Internal Medicine-Medical Oncology 11/12/23 Matt Ulrich MD [address] [place] [address] Surgery-Surgical Oncology 12/04/23 Eze Brock Pastoral Care 12/13/23 Cheryl Nair, RAUL Oncology Nurse Navigator 03/25/2412/13 Annette Walker, STEAMBOAT PILOT Clinical Review Specialist 05/13/24 Batool Celis MD [address] [place] [address] [place] [address] Radiation Oncologist Radiology-Radiation Oncology 06/08/24 documented as of this encounter
--- OUTSIDE RECORDS SUMMARY | 2025-04-06 12:27 | XMS_ITS | Encounter Summary ---
Author Organization [place] [address] Care Team Providers Care Cyber Analyst Name Role Phone Arlyn Schmidt MD Unavailable [phone] Tacho Echavarria MD Unavailable [phone] Matt Ulrich MD Unavailable [phone] Eze Brock Unavailable Annette Walker BOARD FINISHER Unavailable [phone] Batool Celis MD Unavailable [phone] Ayush Marrero MD Primary Care Provider [phone] Reason for Visit * Reason Onset Date Comments Schedule Appointment 04/02/2025 Call from Chely Rowan's office to schedule MRI Encounter Details Date Type Department Care Team (Late st Contact Info) Description 04/02/2025 Telephone [facility] [place] [address] Tacho Echavarria MD [address] [place] [address] [id number] Schedule Appointment (Call from Dr. Rowan's office to schedule MRI ) Social History Tobacco Use Types Packs/Day [...] in a retirement (including now)? No 11/07/2023 [facility] IP Transportation Answer D [...] encounter Miscellaneous Notes * Telephone Encounter - Sendy Waddell NA - 04/02/2025 11:50 AM EDT Reason for call: Call from Dr. Rowan's office asking if patient had been scheduled for MRI. Let him know that she wasnot, asked to be transferred to to schedule. No further needs. documented in this encounter Plan of Treatment Upcoming Encounters Date Type Department Care Team (Late st Contact Info) Description 04/09/2025 3:00 PM EDT Hospital Encounter [facility] [address] [place] [address] Adryan Rowan MD [address] [place] [address] [address] [place] [address] 04/29/2025 9:15 AM EDT Appointment [facility] [place] [address] Batool Celis MD [address] [place] [address] [place] [address] 05/19/2025 2:15 PM EST Office Visit [address] [place] [address] Sin Tran MD [address] [place] [address] 06/09/2025 12:45 PM EST Procedure visit [facility] [address] [place], [place] [address] Jamielorna Samm Dillon, GETTERING FILAMENT MACHINE OPERATOR [address] [place] [address] 08/12/2025 10:40 AM EST Appointment [facility] Women's Wellness [facility] [place] [address] Matt Ulrich MD [address] [place] [address] 254 [place] [address] documented as of this encounter Goals Goal Patient Goal Type Associated Problems Recent Progress Patient-Stated? Author Blood Pressure < 140/90 Blood Pressure 123/84(03/24 1:35 PM EDT) No Chetna Cedeno MD Breast [facility] Breast Health On track(2024 11:27 AM EDT) No Jasmin Porter, RAUL Note: Patient acknowledges understanding of new diagnosis, plan of care, available resources and how to contact Nurse Navigator with any future questions or concerns. Breast [facility] Breast Health Not on track(2024 11:27 AM EDT) No Jasmin Porter, RAUL Note: Patient will be compliant with monthly SBE and is aware of who to contact for any unusual or concerning findings. Breast [facility] Breast Health On track(2024 11:27 [...] documented as of this encounter Care Teams Cyber Analyst Relationship Specialty Start Date End Date Ayush Marrero MD [address] [place], [place] [address] PCP - General Family Medicine 03/09/25 Arlyn Schmidt MD [address] [place] [address] Consulting Physician Internal Medicine-Endocrinology, Diabetes & Metabolism 11/28/20 Tacho Echavarria MD 1 [place] [address] Internal Medicine-Medical Oncology 11/12/23 Matt Ulrich MD 1 [place] [address] Surgery-Surgical Oncology 12/04/23 Eze Brock Pastoral Care 12/13/23 Annette Walker, ARACELI Insurance Attorney 05/13/24 Batool Celis MD [address] [place] [address] [place] [address] Radiation Oncologist Radiology-Radiation Oncology 06/08/24 documented as of this encounter
--- OUTSIDE RECORDS SUMMARY | 2025-04-06 12:27 | XMS_ITS | Encounter Summary ---
Author Organization [place] [address] Care Team Providers Care Utility Agent Name Role Phone Kit Cedeno MD Primary Care Provider [phone] Arlyn Schmidt MD Unavailable [phone] Cheryl Nair RN Unavailable [phone] Tacho Echavarria MD Unavailable [phone] Matt Ulrich MD Unavailable [phone] Hilary Clemens RN Unavailable Unavaila Eze Caro Unavailable Shila Albrecht RN Unavailable Unavail able Cheyanne To RN Unavailable Unavailabl Rayna Wong RN Unavailable Unavailab Shilpa Olivarez RN Unavailable [phone] Tulio Duong RN Unavailable Unavailable Yaquelin Weaver RN Unavailable Unavailable Pam Wang RN Unavailable Unavailable Jazmín Nair RN Unavailable Unavailable Fidel Rainey RN Unavailable Unavailable Cheryl Nair RN Unavailable [phone] Ophelia Lala RN Unavailable Glo Lee RN Unavailable Unavailab Sanam Evans CAP LINING MACHINE OPERATOR Unavailable Unavailable Hilary Clemens RN Unavailable Unavaila Ruthy Clayton RN Unavailable Unavailable Rayna Partida RN Unavailable Unavailab Artur Nelson RN Unavailable Unavailable Annette Walker CAP LINING MACHINE OPERATOR Unavailable [phone] Emmie Crain RN Unavailable Unavailable Brigida Enriquez RN Unavailable Unavailable Fidel Rainey RN Unavailable Unavailable Batool Celis MD Unavailable [phone] Ayush Marrero MD Primary Care Provider [phone] Encounter Details Date Type Department Care Team (Late st Contact Info) Description 10/25/2023 Orders Only [facility] [place] [address] Diane Ellsi MD 1 [place] [address] Social History Tobacco Use Types [...] Description 04/09/2025 3:00 PM EDT Hospital Encounter [facility] [address] [place] [address] Adryan Rowan MD [address] [facility] [address] [place] [address] 04/29/2025 9:15 AM EDT Appointment [facility] [place] [address] Batool Celis MD [address] [place] [address] [place] [address] 05/19/2025 2:15 PM EST Office Visit [facility] [address] [place] [address] Sin Tran MD [address] [place] [address] 06/09/2025 12:45 PM EST Procedure visit [facility] [address] [place], [place] [address] Samm Ledesma, ELECTRICIAN STATION ASSISTANT [address] [place] [address] 08/12/2025 10:40 AM EST Appointment [facility] [place] [facility] [place] [address] Matt Ulrich MD [address] [place] [address] [address] [place] [address] documented as of this encounter [...] 10/25/2023 10:4 4 AM EDT Narrative [facility] - 11/01/2023 3:02 PM EDT Requesting Provider: KIT Womack Specimen = [id number] us Diane Elils MD PATHOLOGY ORDERABLES Final Resul t [facility] 1 [place] [address] documented in this encounter Visit Diagnoses Not on filedocumented in this encounter Additional Health Concerns Infection Onset Date Last Indicated Resolved Time COVID-19 09/04/2024 09/04/2024 09/24/2024 10:1 2 PM EDT documented as of this encounter Care Teams Utility Agent Relationship Specialty [place] [address] [place] [address] PCP - General 06/21/10 03/08/25 Ayush Marrero MD [address] [place] [address] PCP - General Family Medicine 03/09/25 Arlyn Schmidt MD [address] [place] [address] Consulting Physician Internal Medicine-Endocrinolog y, Diabetes & Metabolism 11/28/20 Cheryl Nair RN Oncology Nurse Navigator 10/29/2302/05 Tacho Echavarria MD 1 [place] [address] Internal Medicine-Medical Oncology 11/12/23 Matt Ulrich MD 1 [place], [place] [address] Surgery-Surgical Oncology 12/04/23 Hilary Clemens, RN Registered [...] [facility] Supervisor Winter 04/10/24 07/30/24 Hilary Clemens, RN Registered Nurse Infusion Therapy 04/21/24 04/21/24 Ruthy Walker RN Registered Nurse Infusion Therapy 04/24/24 04/24/24 Rayna Partida, RN Registered Nurse Infusion Clinic 05/01/24 05/01/24 Artur Roberts RN Registered Nurse Infusion Therapy 05/07/24 05/07/24 Annette Walker, CAP LINING MACHINE OPERATOR Supervisor Winter 05/13/24 Emmie Crain, RN Registered Nurse Infusion Therapy 05/14/24 05/14/24 Brigida Enriquez, RN Registered Nurse Infusion Clinic 05/21/24 05/21/24 Fidel Rainey, RN Registered Nurse Infusion Therapy 05/28/24 05/28/24 Batool Celis MD [address] [place] [address] [place] [address] Radiation Oncologist Radiology-Radiation Oncology 06/08/24 documented as of this encounter
--- OUTSIDE RECORDS SUMMARY | 2025-04-06 12:27 | XMS_ITS | Encounter Summary ---
Author Organization [place] [address] Care Team Providers Care Zinc Plater Name Role Phone Chetna Cedeno MD Primary Care Provider [phone] Arlyn Schmidt MD Unavailable [phone] Tacho Echavarria MD Unavailable [phone] Matt Ulrich MD Unavailable [phone] Eze Brock Unavailable Annette Walker Unavailable [phone] Batool Celis MD Unavailable [phone] Ayush Marrero MD Primary Care Provider [phone] Reason for Visit * Reason Comments Pharmacy Migraine Medication Management Qulipta/Nurtec Encounter Details Date Type Department Care Team (Latest Contact Info) Description 02/26/2025 Specialty Pharmacy [facility] [address] [place] [address] Charlotte Martino CPhT Pharmacy Migraine [...] any clubs o r organizations such as protestant groups, unions, fraternal or athletic groups, or [...] [facility] of Occupat ional Health [...] in a jail (including now)? No 11/07/2023 [facility] IP Transportation Answer [...] refills of Qulipta/Nurtec. Copay amount: $0 Sent AOTMP message. Patient informed of copay. * Annamarie [...] up on 03/09. Copay amount: $0 Sent AOTMP message. Patient informed of copay. * Anisa Lozoya CPhT - 02/26/2025 11:29 AM EDT [facility] will now picking table worker 03/10 with lilia documented in this encounter Plan of Treatment Upcoming Encounters Date Type Department Care Team (Late st Contact Info) Description 04/09/2025 3:00 PM EDT Hospital Encounter [facility] [address] [place] [address] Adryan Rowan MD [address] [facility] [address] [place] [address] 04/29/2025 9:15 AM EDT Appointment [place] [address] Batool Celis MD [address] [place] [address] [place] [address] 05/19/2025 2:15 PM EST [facility] [address] [facility] [address] [place] [address] Sin Tran MD [address] [place] [address] 06/09/2025 12:45 PM EST Procedure visit [facility] [address] [facility] [address] [place] [address] Samm Ledesma APRN [address] [facility] [address] [place] [address] 08/12/2025 10:40 AM EST Appointment [facility] [place] One [facility] [place] [address] Matt Ulrich MD 20 [facility] [place] [address] documented as of this encounter Goals Goal [...] documented as of this encounter Care Teams Zinc Plater Relationship Specialty [place] [address] [place] [address] PCP - General 06/21/10 03/08/25 Ayush Marrero MD [address] [place] [address] PCP - General Family Medicine 03/09/25 Arlyn Schmidt MD [address] [place], [place] [address] Consulting Physician Internal Medicine-Endocrinology, Diabetes & Metabolism 11/28/20 Tacho Echavarria MD 1 [place] [address] Internal Medicine-Medical Oncology 11/12/23 Matt Ulrich MD 1 [place] [address] Surgery-Surgical Oncology 12/04/23 Eze Brock Pastoral Care 12/13/23 Annette Walker, ANALYTICAL STATISTICIAN Fashion Marketer 05/13/24 Batool Celis MD 1 [facility] CANCER [place], [place] [address] Radiation Oncologist Radiology-Radiation Oncology 06/08/24 documented as of this encounter
--- OUTSIDE RECORDS SUMMARY | 2025-04-06 12:27 | XMS_ITS | Encounter Summary ---
Author Organization [place] [address] Care Team Providers Care Box Order Person Name Role Phone Chetna Cedeno MD Primary Care Provider [phone] Arlyn Schmidt MD Unavailable [phone] Tacho Echavarria MD Unavailable [phone] Matt Ulrich MD Unavailable [phone] Eze Brock Unavailable Annette Walker REFRIGERATED NATIONAL TRUCK DRIVER Unavailable [phone] Batool Celis MD Unavailable [phone] Ayush Marrero MD Primary Care Provider [phone] Reason for Visit * Reason Comments Pharmacy Oncology Management Abemaciclib Encounter Details Date Type Department Care Team (Latest Contact Info) Description 02/25/2025 Specialty Pharmacy [facility] [address] [place] [address] Annette Renee CPhT Pharmacy Oncology [...] from your doctor or pharmacy? Never 11/07/2023 [facility] Utilities Answer Date Recorded [...] Recorded PHQ-2 Total Score 5 07/07/2024 [facility] [place] of Occupat ional Health - Occupational Stress [...] in a longterm (including now)? No 11/07/2023 [facility] IP Transportation Answer [...] Patient informed of copay. * Medhat Stover RPH - 02/25/2025 10:28 AM EDT [facility] - Care Plan and Refill Review Refill questions and refill history verified. Last assessment 12/25/24. No reassessment needed at this time. Medhat Stover RPH Specialty Pharmacist * Madalyn Rivas RPH - 02/25/2025 10:28 AM EDT [facility] Per chart review patient will stop abemaciclib due to POD. Plan to repeat biopsy if feasible to further guide treatment. Patient transitioning care to outside clinic. Patient will be disenrolled fromOncology Specialty Pharmacy services. Aisha Rivas, PharmD, BCPS, BCOP Oncology Pharmacist 03/25/2025 8:41 AM documented in this encounter Miscellaneous Notes * Addendum Note - Madalyn Rivas RPH - 02/25/2025 10:28 AM EDTAddended by: MADALYN RIVAS on: 03/25/2025 08:43 AM Modules accepted: Orders documented in this encounter Plan of Treatment Upcoming Encounters Date Type Department Care Team (Late st Contact Info) Description 04/09/2025 3:00 PM EDT Hospital Encounter [facility] [address] [place] [address] Adryan Rowan MD [address] [facility] [address] [place] [address] 04/29/2025 9:15 AM EDT App[place]ment [place] [address] Batool Celis MD [address] [place] [address] [place] [address] 05/19/2025 2:15 PM EST Office Visit [facility] Sarah [address] [facility] [address] [place] [address] Sin Tran MD [address] [place] [address] 06/09/2025 12:45 PM EST Procedure visit [facility] [address] [facility] [address] [place], [place] [address] Samm Ledesma, LEYLA [address] [facility] [address] [place] [address] 08/12/2025 10:40 AM EST Appointment [facility] Women's Wellness [facility] [place] [address] Matt Ulrich MD [address] [place] [address] [address] [place] [address] documented as of this encounter Goals Goal Patient Goal Type Associated Problems Recent Progress Patient-Stated? Author Blood Pressure < 140/90 Blood Pressure 123/84(03/24 1:35 PM EDT) No Chetna Cedeno MD [facility] Health On track(2024 11:27 AM EDT) No Jasmin Porter, RAUL Note: Patient acknowledges understanding of new diagnosis, plan of care, available resources and how to contact Nurse Navigator with any future questions or concerns. Breast [facility] Breast Health Not on track(2024 11:27 AM EDT) No Jasmin Porter, RAUL Note: Patient will be compliant with monthly SBE and is aware of who to contact for any unusual or concerning findings. Breast [facility] Breast Health On track(2024 11:27 AM EDT) No Demi Garibay, RAUL Note: Patient will be compliant with taking Aromatase Inhibitor daily and understands who to contact to discuss any side effects or complications. Maintain a healthy diet, exercise regularly and maintain an ideal body weight General Sanam Champion MA documented as of this encounter Visit Diagnoses Not on filedocumented in this encounter Discontinued Medications Medication Sig Discontinue Reason Start Date End Da te abemaciclib (VERZENIO) 100 mg Oral TabletIndications:Inva sive ductal carcinoma of right breast (HCC),Chemotherapy-ind uced nausea Take 1 Tablet by mouth 2 times daily. DELETE- Stopped by provider 12/10/2024 03/25/2025 documented as of this encounter Additional Health Concerns Assessment Noted Time PHQ-9 Depression Total Score: 17 024 8:39 AM EST PHQ-2 Depression Total Score: 5 07/07/20 24 8:39 AM EST documented as of this encounter Care Teams Box Order Person Relationship Specialty [place] [address] [place] [address] PCP - General 06/21/10 03/08/25 Ayush Marrero MD [address] [place] [address] PCP - General Family Medicine 03/09/25 Arlyn Schmidt MD [address] [place] [address] Consulting Physician Internal Medicine-Endocrinology, Diabetes & Metabolism 11/28/20 Tacho Echavarria MD 1 [place], [place] [address] Internal Medicine-Medical Oncology 11/12/23 Matt Ulrich MD 1 [place] [address] Surgery-Surgical Oncology 12/04/23 Eze Brock Pastoral Care 12/13/23 Aaron Annette, REFRIGERATED NATIONAL TRUCK DRIVER Counselor Manager 05/13/24 Batool Celis MD [address] [place] [address] [place] [address] Radiation Oncologist Radiology-Radiation Oncology 06/08/24 documented as of this encounter
--- OUTSIDE RECORDS SUMMARY | 2025-04-06 12:27 | XMS_ITS | Encounter Summary ---
Author Organization [place] [address] Care Team Providers Care Fire Behavior Analyst Name Role Phone Chetna Cedeno MD Primary Care Provider [phone] Arlyn Schmidt MD Unavailable [phone] Tacho Echavarria MD Unavailable [phone] Matt Ulrich MD Unavailable [phone] Eze Brock Unavailable Annette Walker Unavailable [phone] Batool Celis MD Unavailable [phone] Reason for Visit * Reason Comments Pharmacy Oncology Management Abemaciclib Encounter Details Date Type Department Care Team (Latest Contact Info) Description 02/03/2025 Specialty Pharmacy [facility] [address] [place] [address] Anisa Lozoya CPhT Pharmacy Oncology [...] has e electric, gas, oil, or water [employer] threatened to shut off services in your [...] Total Score 5 07/07/2024 [facility] [place] of Occupat ional Health - [...] a usp (including now)? No 11/07/2023 [facility] [...] Specialty Pharmacy Refill Coordination Note Contacted El Devorah Cole today regarding refills of Abemaciclib . Medication to be picked up on 02/04. Copay amount: $0 Spoke with patient. Patient informed of copay. said she is being discharged tomorrow and will oyster picker all her meds. She is unsure of supply left. * Blake Antoine RPH - 02/03/2025 11:05 AM EDT [facility] - Care Plan and Refill Review Refill questions and refill history verified. Last assessment 12/25/24. No reassessment needed at this time. Blake Antoine PharmD Specialty Pharmacist documented in this encounter Plan of Treatment Upcoming Encounters Date Type Department Care Team (Late st Contact Info) Description 04/09/2025 3:00 PM EDT Hospital Encounter [facility] [address] [place] [address] Adryan Rowan MD [address] [place] [address] [address] [place] [address] 04/29/2025 9:15 AM EDT Appointment [facility] ON[facility] [address] [place], [place] [id number] Batool Celis MD [address] [place] [address] [place] [address] 05/19/2025 2:15 PM EST Office Visit [facility] [address] [facility] [address] [place] [address] Sin Tran MD [address] [place] [address] 06/09/2025 12:45 PM EST Procedure visit [facility] [address] [facility] [address] [place] [address] Samm Ledesma APRN [address] [facility] [address] [place] [address] 08/12/2025 10:40 AM EST Appointment [facility] Women's Wellness [place] [address] Matt Ulrich MD [address] [facility] [address] [place] [address] documented as of this encounter Goals Goal [...] documented as of this encounter Care Teams Fire Behavior Analyst Relationship Specialty [place] [address] [place] [address] PCP - General 06/21/10 03/08/25 Arlyn Schmidt MD [facility] [address] [place], [place] [address] Consulting Physician Internal Medicine-Endocrinology, Diabetes & Metabolism 11/28/20 Tacho Echavarria MD 1 [place], [place] [address] Internal Medicine-Medical Oncology 11/12/23 Matt Ulrich MD 1 [place] [address] Surgery-Surgical Oncology 12/04/23 Eze Brock Pastoral Care 12/13/23 Annette Walker MSW Carpenter'S Helper 05/13/24 Batool Celis MD 1 [facility] [place] [address] Radiation Oncologist Radiology-Radiation Oncology 06/08/24 documented as of this encounter
--- OUTSIDE RECORDS SUMMARY | 2025-04-06 12:28 | XMS_ITS | Encounter Summary ---
Author Organization [place] [address] Care Team Providers Care Flatwork Assembler Name Role Phone Chetna Cedeno MD Primary Care Provider [phone] Arlyn Schmidt MD Unavailable [phone] Tacho Echavarria MD Unavailable [phone] Matt Ulrich MD Unavailable [phone] Eze Brock Unavailable Annette Walker Unavailable [phone] Batool Celis MD Unavailable [phone] Reason for Visit * Reason Onset Date Comments Symptom Call 02/05/2025 lightheaded / he adache Encounter Details Date Type Department Care Team (Late st Contact Info) Description 02/05/2025 Telephone [facility] Medical Oncology [place], [place] [phone] Tacho Echavarria MD [address] [place] [id number] Symptom Call (lightheaded / headache ) Social [...] your doctor or pharmacy? Never 11/07/2023 [facility] Utilities Answer Date Recorded In the past [...] Date Recorded PHQ-2 Total Score 5 07/07/2024 [facility] of Occupat ional Health - Occupational Stress [...] a skilled nursing (including now)? No 11/07/2023 [facility] IP Transportation Answer D ate [...] a typicalmigraine. Took Nurtec w/o relief. Rates 10. Went to ER in [facility] last [...] What Location is the Patient seen at: ED Preferred call back number: [phone] Explained to the caller, if this is a medical emergency please call 911 or go to the nearest emergency room. documented in this encounter Plan of Treatment Upcoming Encounters Date Type Department Care Team (Late st Contact Info) Description 04/09/2025 3:00 PM EDT Hospital Encounter [facility] [address] [place] [address] Adryan Rowan MD [address] [facility] [address] [place] [address] 04/29/2025 9:15 AM EDT Appointment [facility] [place] [address] Batool Celis MD [address] [place] [address] [place] [address] 05/19/2025 2:15 PM EST Office Visit [address] [address] Sin Tran MD [address] [facility] [place] [place] [address] 06/09/2025 12:45 PM EST Procedure visit [facility] [address] [facility] [address] [place], [place] [address] Samm Ledesma, LEYLA [address] [facility] [address] [place] [address] 08/12/2025 10:40 AM EST Appointment [facility] Women's Wellness [place] [address] [facility] [place] [address] Matt Ulrich MD [address] [place] [address] [address] [place] [address] documented as of this encounter [...] documented as of this encounter Care Teams Flatwork Assembler Relationship Specialty [place] [address] [place] [address] PCP - General 06/21/10 03/08/25 Arlyn Schmidt MD [address] [place], [place] [address] Consulting Physician Internal Medicine-Endocrinology, Diabetes & Metabolism 11/28/20 Tacho Echavarria MD 1 [place], [place] [address] Internal Medicine-Medical Oncology 11/12/23 Matt Ulrich MD 1 [place], [place] [address] Surgery-Surgical Oncology 12/04/23 Eze Brock Pastoral Care 12/13/23 Annette Walker, ARACELI Substation Design Draftsperson 05/13/24 Batool Celis MD 1 [facility] [place] [address] Radiation Oncologist Radiology-Radiation Oncology 06/08/24 documented as of this encounter
--- OUTSIDE RECORDS SUMMARY | 2025-04-06 12:28 | XMS_ITS | Encounter Summary ---
Author [place] [address] Care Team Providers Care Jewel Bearing Polisher Name Role Phone Chetna Cedeno MD Primary Care Provider [phone] Arlyn Schmidt MD Unavailable [phone] Tacho Echavarria MD Unavailable [phone] Matt Ulrich MD Unavailable [phone] Eze Brock Unavailable Annette Walker Unavailable [phone] Batool Celis MD Unavailable [phone] Reason for Visit * Reason Onset Date Comments Integrative Oncology Referral 02/05/2025 Encounter Details Date Type Department Care Team (Late st Contact Info) Description 02/05/2025 Telephone [facility] [place], [place] [id number] Narda Vickers, Clerical Staff Integrative Oncology Referral [...] th e electric, gas, oil, or water [employer] threatened to shut off services in your [...] 5 07/07/2024 [facility] - Occupational Stress Questionnaire Answer [...] in a retirement (including now)? No 11/07/2023 [facility] IP Transportation [...] Clerical Staff - 02/05/2025 11:38 AM EDT Seekly message sent with Integrative Oncology information and newsletter. Narda documented in this encounter Plan of Treatment Upcoming Encounters Date Type Department Care Team (Late st Contact Info) Description 04/09/2025 3:00 PM EDT Hospital Encounter [facility] [address] [place] [address] Adryan Rowan MD [address] [facility] [address] [place] [address] 04/29/2025 9:15 AM EDT Appointment [place] [address] Batool Celis MD [address] [place] [address] CANCER CARE [place], [place] [id number] 05/19/2025 2:15 PM EST Office Visit [facility] [place] [address] [facility] [address] [place] [address] Sin Tran MD [address] [place] [address] 06/09/2025 12:45 PM EST Procedure visit [facility] [address] [facility] [address] [place] [address] Samm Ledesma, DANCE COACH [address] [facility] [address] [place] [address] 08/12/2025 10:40 AM EST Appointment [facility] Women's Wellness [place] [address] [facility] [address] [place] [address] Matt Ulrich MD [address] [place] [address] [address] [place] [address] documented as of this encounter Goals Goal Patient Goal Type Associated Problems Recent Progress Patient-Stated? Author Blood Pressure < 140/90 Blood Pressure 123/84(03/24 1:35 PM EDT) No Chetna Cedeno MD Breast [facility] Breast Health On track(2024 11:27 AM EDT) No Jasmin Porter, RN Note: Patient acknowledges understanding of new diagnosis, plan of care, available resources and how to contact Nurse Navigator with any future questions or concerns. Breast [facility] Breast Health Not on track(2024 11:27 AM EDT) No Jasmin Porter, RAUL Note: Patient will be compliant with monthly SBE and is aware of who to contact for any unusual or concerning findings. Breast [facility] Breast Health On track(2024 11:27 [...] documented as of this encounter Care Teams Jewel Bearing Polisher Relationship Specialty [place] [address] [address] [place] [address] PCP - General 06/21/10 03/08/25 Arlyn Schmidt MD [address] [place] [address] Consulting Physician Internal Medicine-Endocrinology, Diabetes & Metabolism 11/28/20 Tacho Echavarria MD 1 [place] [address] Internal Medicine-Medical Oncology 11/12/23 Matt Ulrich MD 1 [place] [address] Surgery-Surgical Oncology 12/04/23 Eze Brock Pastoral Care 12/13/23 Annette Walker, JOB CHECKER Clothing Trades Workers 05/13/24 Batool Celis MD 1 [facility] [place] [address] Radiation Oncologist Radiology-Radiation Oncology 06/08/24 documented as of this encounter
--- OUTSIDE RECORDS SUMMARY | 2025-04-06 12:28 | XMS_ITS | Encounter Summary ---
Author Organization [place] [address] Care Team Providers Care Research Mechanic Name Role Phone Chetna Cedeno MD Primary Care Provider [phone] Arlyn Schmidt MD Unavailable [phone] Tacho Echavarria MD Unavailable [phone] Matt Ulrich MD Unavailable [phone] Eze Brock Unavailable Annette Walker Unavailable [phone] Batool Celis MD Unavailable [phone] Reason for Visit * Reason Onset Date Comments Other 02/05/2025 BW Encounter Details Date Type Department Care Team (Late st Contact Info) Description 02/05/2025 Telephone [facility] [place] [address] [place] [address] [place] [address] [place] [address] Other (BW) Social History Tobacco Use [...] Date Recorded PHQ-2 Total Score 5 07/07/2024 [facility] ional Health - [...] 11/07/2023 [facility] IP Transportation Answer D ate [...] potassium tabs for her to take to [facility] [place] * Telephone Encounter - Destiny Alejandre CCMA [...] Description 04/09/2025 3:00 PM EDT Hospital Encounter [facility] [address] [place] [address] Adryan Rowan MD [address] [facility] [address] [place] [address] 04/29/2025 9:15 AM EDT Appointment [facility] [place] [address] Batool Celis MD [address] [place] [address] [place] [address] 05/19/2025 2:15 PM EST Office Visit [facility] [address] [facility] [address] [place] [address] Sin Tran MD [address] [place] [address] 06/09/2025 12:45 PM EST Procedure visit [facility] [address] [facility] [address] [place] [address] Samm Ledesma APRN [address] [facility] [address] [place] [address] 08/12/2025 10:40 AM EST Appointment [facility] Women's Wellness [place] One [facility] [place] [address] Matt Ulrich MD [address] [facility] [address] [place] [address] documented as of this encounter Goals Goal [...] as of this encounter Care Teams Research Mechanic Relationship Specialty [place] [address] [place] [id number] PCP - General 06/21/10 03/08/25 Arlyn Schmidt MD [facility][note 2] [address] [place], [place] [id number] Consulting Physician Internal Medicine-Endocrinology, Diabetes & Metabolism 11/28/20 Tacho Echavarria MD [address] [place] [address] Internal Medicine-Medical Oncology 11/12/23 Matt Ulrich MD [address] [place] [address] Surgery-Surgical Oncology 12/04/23 Eze Brock Pastoral Care 12/13/23 Annette Walker MSW Dobie Man 05/13/24 Batool Celis MD [address] [place] [address] [place] [address] Radiation Oncologist Radiology-Radiation Oncology 06/08/24 documented as of this encounter
[2025-04-06 12:40] VITALS: BP 121/82; PULSE 93; RESP 20; TEMP 36.8; O2SAT 99
[2025-04-06] MEDS: FULVESTRANT 250 MG/5 ML 500 MG IM (12:40)
[2025-04-06 12:52] LABS: POC Glucose,Bedside 113 gm/dL (70-110)
== END 2025-04-06 23:59 | disposition home or self-care (01) ==
LOC: INF 12:24
PROVIDERS: PCP Internal Medicine Adolescent Medicine; Visit Provider Internal Medicine Medical Oncology
DX: D05.11 Intraductal carcinoma in situ of right breast (principal)
CPT/HCPCS: 82962; 96372; 96402; J9395

== ENCOUNTER 2025-04-15 14:29 | Outpatient (CLI) | payer MEDICAID, SELFPAY ==
[2025-04-15 20:29] LABS: Hematocrit 33.3 % (37.0-47.0); Hemoglobin 10.9 g/dL (12.2-16.2); Immature Granulocytes % 0.2 %; Mean Corpuscular HGB Conc 32.7 g/dL (31.8-35.4); Mean Corpuscular Hemoglobin 31.1 pg (27.0-31.2); Mean Corpuscular Volume 95.1 fl (81-99); Nucleated Red Blood Cells % 0 %; Platelet Count 210 K/mm3 (142-424); Red Blood Count 3.50 M/mm3 (4.20-5.40); Red Cell Distribution Width-SD 43.8 fL; White Blood Count 6.5 K/mm3 (4.8-10.8)
[2025-04-15 21:36] LABS: Anion Gap 11.2 mEq/L (5-15); Blood Urea Nitrogen 15 mg/dl (7-17); Calcium 8.6 mg/dl (8.4-10.2); Carbon Dioxide 26 mmol/L (22.0-30.0); Chloride 103 mmol/L (98-107); Creatinine,Serum 1.10 mg/dl (0.52-1.04); Estimated Glomerular Filt Rate 51 ml/min (>60); GFR (African American) 62 ML/MIN (>60); Glucose 68 mg/dl (74-100); Potassium 3.2 mmoL/L (3.5-5.1); Sodium 137 mmol/L (136-145)
--- OUTSIDE RECORDS SUMMARY | 2025-04-16 02:10 | XMS_ITS | Clinical Summary ---
Author Organization [facility] Address [address] [place] [address] Phone Care Team Providers Care Shell Mold Bonder Name Role Phone Outside, Provider Unavailable [phone] Conditions or Problems No information available. Medications No information available. Medications Administered No information available. Allergies, Adverse Reactions, Alerts No information available. Results No information available. Plan of Care No information available. Procedures No information available. Vital Signs No information available. Immunizations No information available. Advance Directives No information available.
--- OUTSIDE RECORDS SUMMARY | 2025-04-16 02:10 | XMS_ITS | Clinical Summary ---
Author Organization [facility] Address [address] [place] [address] Phone Care Team Providers Care Coordinator Cardiopulmonary Services Name Role Phone Chetna Cedeno MD Primary Care Provider [phone] Allergies Active Allergy Reactions Criticality Noted Date [...] patient's age to complete this topic Insurance [facility] MEDICAID Care Teams Coordinator Cardiopulmonary Services Relationship Specialty Start Date End Date Chetna Cedeno MD [facility] [address] [place] [address] PCP - General Family Medicine 01/02/25
== END 2025-04-15 23:59 ==
LOC: LAB.DROPOF 04-16 02:08
PROVIDERS: PCP Student in an Organized Health Care Education/Training Program; Visit Provider Student in an Organized Health Care Education/Training Program
DX: T78.40XA Allergy, unspecified, initial encounter (principal)
CPT/HCPCS: 80048; 85025

== ENCOUNTER 2025-05-04 11:50 | Outpatient (CLI) | payer MEDICAID, SELFPAY ==
--- OUTSIDE RECORDS SUMMARY | 2025-03-10 13:30 | XMS_ITS | Encounter Summary ---
Author Organization [place] [address] Care Team Providers Care Director Sales And Trade Marketing Name Role Phone Arlyn Schmidt MD Unavailable [phone] Tacho Echavarria MD Unavailable [phone] Matt Ulrich MD Unavailable [phone] Eze Brock Unavailable Annette Walker ELEMENTARY VOCAL MUSIC TEACHER Unavailable [phone] Batool Celis MD Unavailable [phone] Ayush Marrero MD Primary Care Provider [phone] Reason for Visit * In Office Procedure (Routine) - PCP Precert Acquired Specialty Diagnoses / Procedures Referred By Van t Referred To Contact Neurology Diagnoses Chronic migraine without aura, intractable, with status migrainosus Procedures BOTOX COMMUNICATION ORDER PA INJECTION,ONABOTULINUMTOXINA PA CHEMODERVATE FACIAL/TRIGEM/CERV MUSC MIGRAINE Samm Ledesma, TRAINING EXECUTIVE [address] [address] Phone: tel: fax: Samm Ledesma, TRAINING EXECUTIVE [address] [place] [address] Phone: tel: fax: Referral ID Status Reason Start Date Expiration Date V isits Requested Visits Authorized [id number] PCP Precert Acquired 03/10/2025 03/10/2026 1 4 Encounter Details Date Type Department Care Team (Late st Contact Info) Description 03/10/2025 1:30 PM EDT Procedure visit [facility] [address] [place] [address] Krissy Rhodes, TRAINING EXECUTIVE [address] [place] [address] Chronic migraine without aura, intractable, [...] or pharmacy? Never 11/07/[address] [facility] Utilities Answer Date Recorded In the past 12 months has [employer] electric, gas, oil, or water [employer] threatened to shut off services in your home? No 07/07/2024 Social Connection and Isolation Panel Answer Date Recorded In a typical week, how many times do you talk on the phone with family, friends, or neighbors? Once a week 11/07/19 How often do you get togethe r with friends or relatives? Once a week 11/07/2023 How often do you attend chur or yazidism services? 1 to 4 times per year 11/07/2023 Do you belong to any clubs o r organizations such as methodist groups, unions, fraternal or athletic groups, or [...] Score 5 07/07/2024 [facility] [place] of Occupat ional Health - Occupational [...] in a residential (including now)? No 11/07/2023 [facility] IP Transportation Answer D [...] in this encounter Progress Notes * Krissy Rhodes APRN - 03/10/2025 1:30 PM EDT [facility] Neurology Neurology Outpatient Progress Note Botulinum Treatment [...] Botox provided by: sample Botox Lot number: [id number] EXP 06/2026 [facility] # [id number] Saline Lot number: [id number] EXP 06/2026 IMPRESSION: Repeat botox injection. Will [...] Care Team (Late st Contact Info) Description 05/19/2025 2:15 PM EST Office Visit [facility] [address] [facility] [address] [place] [address] Sin Tran MD [address] [place] [address] 06/08/2025 12:45 PM EST Procedure visit [facility] [address] [place] [address] Samm Ledesma APRN [address] [place] [address] 08/12/2025 10:40 AM EST Appointment [facility] Women's Wellness [place] [address] Matt Ulrich MD [address] [place] [address] [address] [place] [address] documented as of this encounter Goals Goal [...] as of this encounter Care Teams Director Sales And Trade Marketing Relationship Specialty Start Date End Date Ayush Marrero MD [address] [place] [address] PCP - General Family Medicine 03/09/25 Arlyn Schmidt MD [address] [place] [address] Consulting Physician Internal Medicine-Endocrinology, Diabetes & Metabolism 11/28/20 Tacoh Echavarria MD [address] [place] [address] Internal Medicine-Medical Oncology 11/12/23 Matt Ulrich MD [address] [place], [place] [address] Surgery-Surgical Oncology 12/04/23 Eze Brock Pastoral Care 12/13/23 Annette Walker, ARACELI Solar Panel Technician 05/13/24 Batool Celis MD 1 [facility] [place] [address] Radiation Oncologist Radiology-Radiation Oncology 06/08/24 documented as of this encounter
--- OUTSIDE RECORDS SUMMARY | 2025-03-18 07:20 | XMS_ITS | Encounter Summary ---
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 Procedures PET CT SKULL BASE TO MID THIGH Adryan Rowan MD [address] [place] [address] Phone: tel: fax: [place] [place] [address] Phone: tel: fax: Referral ID Status Reason Start Date Expiration Date V isits Requested Visits Authorized [id number] Authorized 03/15/2025 03/15/2026 5 5 Reason for Visit * MRI/CAT Scan (Emergency) - Authorized Specialty Diagnoses / Procedures Referred By Van butler Referred To Contact Radiology Diagnoses 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 Procedures PET CT SKULL BASE TO MID THIGH Adryan Rowan MD [address] [place] [address] Phone: tel: fax: [facility] [place] [address] Phone: tel: fax: Referral ID Status Reason Start Date Expiration Date V isits Requested Visits Authorized [id number] Authorized 03/15/2025 03/15/2026 5 5 Encounter Details Date Type Department Care Team (Late st Contact Info) Description 03/18/2025 7:20 AM EDT - 03/18/2025 11:59 PM EDT Hospital Encounter [facility] [place] [address] Adryan Rowan MD [address] [facility] [address] [place] [address] Malignant neoplasm of axillary tail [...] doctor or pharmacy? Never 11/07/2023 [facility] Utilities Answer Date Recorded In the past 12 months has [employer] electric, gas, oil, or water company threatened [...] [facility] [...] the past [address] [facility], were you homeless or living in a group home (including now)? No 11/07/2023 [facility] IP Transportation Answer D ate [...] 4 fluticasone propionate (FLONASE) 50 mcg/actuation Nasl Casa, Suspension 1 Casa by Nasal route daily. 1 Each 11 [...] Description 05/19/2025 2:15 PM EST Office Visit [place] [id number] Sin Tran MD [address] [facility] [address] 06/08/2025 12:45 PM EST Procedure visit [facility] [address] [place] [address] Samm Ledesma, BOX STAP[employer]ER [address] [place] [address] 08/12/2025 10:40 AM EST Appointment [facility] [place] [address] [facility] [place] [address] Matt Ulrich MD [address] [place] [address] [address] [place] [address] documented as of this encounter Goals Goal [...] (HCC)-ICD-10-CM D05.11-Intraductal carcinoma in situ of right upogoq-XRC-[id number]-CM COMPARISON: PET/CT 11/09/2024. PROCEDURE COMMENTS: 14.7 mCi [...] (HCC)-ICD-10-CM D05.11-Intraductal carcinoma in situ of right yhhpaq-UXU-85-CM COMPARISON: PET/CT 11/09/2024. PROCEDURE COMMENTS: 14.7 mCi [...] GLUCOSE METER POC (03/18/2025 7:23 AM EDT) [facility] Glucose Meter POC 101(H) 70 - 100 mg/dL 03/18/2025 7:26 AM EDT [facility] Sample Type Capillary 03/18/2025 7:26 AM EDT [facility] Patient Status Non-Critical Patient 03/18/2025 7:26 AM EDT [facility] Blood BLOOD SPECIMEN / Unknown 03/18/2025 7:23 AM EDT 03/18/2025 7:26 AM EDT us Adryan Rowan MD POINT OF CARE TEST ORDERABLES Final Result [facility] [address] [place] [address] documented in this encounter Visit Diagnoses Diagnosis [...] Teacher Relationship Specialty Start Date End Date Ayush Marrero MD [address] [phone] PCP - General Family Medicine 03/09/25 Arlyn Schmidt MD [address] [place] [address] Consulting Physician Internal Medicine-Endocrinology, Diabetes & Metabolism 11/28/20 Tacho Echavarria MD [address] [place] [address] Internal Medicine-Medical Oncology 11/12/23 Matt Ulrich MD [address] [place] [address] Surgery-Surgical Oncology 12/04/23 Eze Brock Pastoral Care 12/13/23 Annette Walker MSW Pharmacy Technology Instructor 05/13/24 Batool Celis MD [address] [facility] [address] Radiation Oncologist Radiology-Radiation Oncology 06/08/24 documented as of this encounter
--- OUTSIDE RECORDS SUMMARY | 2025-03-24 13:15 | XMS_ITS | Encounter Summary ---
Author Organization [place] [address] Care Team Providers Care Invoicing Specialist Name Role Phone Arlyn Schmidt MD Unavailable [phone] Tacho Echavarria MD Unavailable [phone] Matt Ulrich MD Unavailable [phone] Eze Brock Unavailable Annette Walker UNDERWATER HUNTER TRAPPER Unavailable [phone] Batool Celis MD Unavailable [phone] Ayush Marrero MD Primary Care Provider [phone] Encounter Details Date Type Department Care Team (Latest Contact Info) Description 03/24/2025 1:15 PM EDT - 03/24/2025 1:32 PM EDT Hospital Encounter [facility] [place], [place] [id number] Tacho Echavarria MD [address] [place] [address] [phone] Invasive ductal carcinoma of breast, female, right [...] in a residential (including now)? No 11/07/2023 [facility] IP Transportation Answer D ate [...] 4 fluticasone propionate (FLONASE) 50 mcg/actuation Nasl [place], Suspension 1 [place] by Nasal route daily. 1 Each 11 [...] Description 05/19/2025 2:15 PM EST Office Visit [facility] [address] [facility] [address] [place] [address] Sin Tran MD [address] [place] [address] 06/08/2025 12:45 PM EST Procedure visit [facility] [address] [facility] [address] [place] [address] Samm Ledesma APRN [address] [facility] [address] [place] [address] 08/12/2025 10:40 AM EST Appointment [facility] Women's Wellness [facility] [place] [address] Matt Ulrich MD [address] [place] [address] [address] [place] [address] documented as of this encounter [...] for any unusual or concerning findings. Breast [facility] Breast Health On track(2024 11:27 [...] Units 500 Units, Intravenous, PRN, Starting on Sat03/24/25 at 1322, Until Pari 03/25/25 at 0409, Line Care, For Venous Access Device care and maintenance., Dx: 1. Invasive ductal carcinoma of breast, female, right (HCC)Indications:Invasive ductal carcinoma of breast, female, right (HCC) Given 03/24/2025 1:31 PM EDT 500 Units sodium chloride 0.9 % sterile syringe Intravenous, PRN, Starting on Sat03/24/25 at 1322, Until Pari 03/25/25 at 0409, Line Care, For initial access of Venous Access Device., Dx: 1. Invasive ductal carcinoma of breast, female, right (HCC)Indications:Invasive ductal carcinoma of breast, female, right (HCC) Given 03/24/2025 1:29 PM EDT 10 mL sodium chloride 0.9% syringe Intravenous, PRN, Starting on Sat03/24/25 at 1322, Until Pari 03/25/25 at 0409, Line Care, For Venous Access Device care and maintenance., Dx: 1. Invasive ductal carcinoma of breast, female, right (HCC)Indications:Invasive ductal carcinoma of breast, female, right (HCC) Given 03/24/2025 1:30 PM EDT 10 mL documented in this encounter Additional Health Concerns Assessment Noted Time PHQ-9 Depression Total Score: 17 024 8:39 AM EST PHQ-2 Depression Total Score: 5 07/07/20 24 8:39 AM EST documented as of this encounter Care Teams Invoicing Specialist Relationship Specialty Start Date End Date Ayush Marrero MD [address] [place], [place] [id number] PCP - General Family Medicine 03/09/25 Arlyn Schmidt MD [address] [place], [place] [id number] Consulting Physician Internal Medicine-Endocrinology, Diabetes & Metabolism 11/28/20 Tacho Echavarria MD 1 [place] [address] Internal Medicine-Medical Oncology 11/12/23 Matt Ulrich MD 1 [place], [place] [id number] Surgery-Surgical Oncology 12/04/23 Eze Brock Pastoral Care 12/13/23 Annette Walker, UNDERWATER HUNTER TRAPPER Camera Prototyping Engineer 05/13/24 Batool Celis MD 1 [facility] CANCER [place], [place] [id number] Radiation Oncologist Radiology-Radiation Oncology 06/08/24 documented as of this encounter
--- OUTSIDE RECORDS SUMMARY | 2025-03-24 13:33 | XMS_ITS | Encounter Summary ---
Author Organization [place] [address] Care Team Providers Care Mangle Press Catcher Name Role Phone Arlyn Schmidt MD Unavailable [phone] Tacho Echavarria MD Unavailable [phone] Matt Ulrich MD Unavailable [phone] Eze Brock Unavailable Annette Walker CASH ACCOUNTANT Unavailable [phone] Batool Celis MD Unavailable [phone] Ayush Marrero MD Primary Care Provider [phone] Reason for Visit * Reason Comments Follow-up Breast Cancer I would like to revi ew my PET scan results and I would like to move my care to Dr Rowan closer to me in [place]. Can you please speak with him? Encounter Details Date Type Department Care Team (Latest Contact Info) Description 03/24/2025 1:33 PM EDT - 03/24/2025 11:59 PM EDT Hospital Encounter [facility] [place] [address] Tacho Echavarria MD [address] [place] [address] Invasive ductal carcinoma of breast, female, [...] In the past 12 months has e [employer], gas, oil, or water [employer] threatened to shut off services in your [...] Total Score 5 07/07/2024 [facility] of Occupat ional Health - Occupational Stress [...] health care facility (including now)? No 11/07/2023 [facility] IP Transportation Answer D ate Recorded [...] 4 fluticasone propionate (FLONASE) 50 mcg/actuation Nasl [place], Suspension 1 [place] by Nasal route daily. 1 Each 4 [...] were not included. Patient: Meri Cole CSN: [id number] Date of : 1965 Age: 59 y.o. Date of Service: 03/24/2025 HEMATOLOGY/ONCOLOGY FOLLOW UP VISIT Primary Systems Project Manager & Oncologist: Tacho Echavarria MD. Patient Care Team: Ayush Marrero MD as PCP - General (Family Medicine) Arlyn Schmidt MD as Consulting Physician (Internal Medicine-Endocrinology, Diabetes & Metabolism) Tacho Echavarria MD (Internal Medicine-Medical Oncology) Matt Ulrich MD (Surgery-Surgical Oncology) Eze Brock as Pastoral Care Annette Walker, ARACELI as Protection Manager Batool Celis MD as Radiation Oncologist (Radiology-Radiation Oncology) 2nd OPINION [facility] EVAL: , [place], [place]: Dr Beata Kebede: [phone] [facility] at [facility]: Dr Adryan Rowan (clinc [phone]; cell: [phone]) Next of Kin: Daughter Ruthy Man ([phone]) Patient Contact info: [phone] DIAGNOSIS HISTORY DATE OF INITIAL CONSULTATION: 11/14/23; outside 2nd opinion at on 09/23/2024 CURRENT TREATMENT Mets BREAST CA: pending establishment of out pt care as pt desires to move care closer to home in [place], [place] with Dr Marcus Rowan PE (02/02/25, at [facility]) and 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 Breast, right, 6:00, Invasive ductal carcinoma, grade 3 ER 80%, ND 11%, Her2 IHC 1+ B. Breast, right, 5:00 Invasive ductal carcinoma grade 3 ER 92%, ND 55%, Her2 negative 11/11/2023 - Consult Initial [...] to GI tolerance for 2 yr planned ([place]-E regimen) 10/2024 - changed to Aromasin d/t [...] Stage IIIB (cT3, cN3a(f), cM0, G3, ER+, ND+, HER2-) Pathologic Stage ypT3, ypN3a, G3, ER+, ND+, HER2- 02/04/2025 - Other Naya García PA-C reviewed SCP and surveillance/imaging recommendations with patient. Patient andcare team received copy. 03/18/2025 - Referrals 03/18/25 - PET with multifocal hypermetabolic intrathoracic lymphadenopathy and new hypermetabolic left scapular lesion, compatible with metastatic disease -> pt would like to move care to [facility], Dr Raleigh Rowan for palliative frontline [...] CalcPt Dosage Given to Date in Gy [id number] Session Dosage Given in Gy [id number] Reference Point ID LN Boost RP Dosage Given to Date in Gy 10 Session Dosage Given in Gy [id number] Reference Point ID [id number] ISO Dosage Given to Date in Gy [id number] Session Dosage Given in Gy [id number] Plan ID BH Nd Boost Plan Name [...] GASTRECTOMY ; Surgeon: Marcus Perez MD; Location: [facility] MAIN OR; Service: General IR 2 [...] SACRAL SINGLE LVL 08/03/2022 Sin Tran MD [facility] SPINE CTR IMAGING IR PORT PLACEMENT EQUAL OR > 5 YEARS 11/29/2023 IR PORT PLACEMENT EQUAL OR > 5 YEARS 11/29/2023 Joselito Goodwin MD [facility] IR LUMBAR DISC SURGERY 09/11/2012 LUMBAR LAMINECTOMY & DISCECTOMY L4-5 LEFT ; Surgeon: Hetal Borden MD; MASTECTOMY Right 07/06/2024 Right modified radical mastectomy; Surgeon: Matt Ulrich MD; Location: [facility] MAIN OR; Service:General SPINE SURGERY N/A 01/04/2021 PAIN PUMP PERMANENT IMPLANT; Surgeon: Munir Hilton MD; Location: [facility] MAIN OR; Service: Pain Management THORACIC SPINE SURGERY N/A 02/24/2020 SPINAL CORD STIMULATOR IMPLANT; Surgeon: Munir Hilton MD; Location: [facility] MAIN OR; Service: Pain Management TONSILLECTOMY UPPER GASTROINTESTINAL ENDOSCOPY UPPER GASTROINTESTINAL ENDOSCOPY N/A 01/26/2015 ESOPHAGOGASTRODUODENOSCOPY with biopsy and davis dilation; Surgeon: Stone Cronin MD; Location: [facility] ENDOSCOPY; Service: Endoscopy FAMILY HISTORY Family [...] op ddAC/Taxane chemo for her high risk ER/ND positive large RIGHT BREAST Carcinoma. She has had significant barriers to self case and social support, here for assistance and updates on rest of her care plan. Aware about PET results, since now living an hour and half away, came to request transfer of care to [facility] clinic ofDR Adryan Rowan closer to her home in [place], [place]. Update (03/24/2025): Ms Cole comes in [...] Seeing Dr Adryan Rowan at [facility] and wanting to request transfer of [facility] records to oncology clinic there. ECOG [...] Device fluticasone propionate (FLONASE) 50 mcg/actuation Nasl [place], Suspension Inhalational Spacing Device (AEROCHAMBER MV) Misc [...] Gran% 0.3 % Lymph Percent 28.2 % Major Percent 8.5 % Eos Percent 1.3 % Baso Percent 1.3 % Neut # 2.3 1.6 - 6.1 x10(3)/mcL IMMGRAN# 0.0 0.0 - 0.1 x10(3)/mcL Lymph # 1.1 (L) 1.2 - 3.9 x10(3)/mcL Major # 0.3 0.3 - 0.9 x10(3)/mcL Eos# [...] G43.719-Chronic migraine without aura, intractable, without status [id number]-50-CM. 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 PROCEDURE COMMENTS: 14.7 mCi [...] outside facility Neurosurgeon (Dr Benoit Duke at [facility]) and no need for surgical resection now, surveillance plan defined in his note of 02/24/24 noted Chemo induced anemia - HGB 9.7 now, cont 1 tab MVI po daily, asked for borderline VIT B12 to start VIT B12 1000 mcg po daily otc PE/ Prothrombin gene carrier - obtaining records from [facility], meanwhile stay on FDAapproved dosing [...] closer to home and we contacted him ([phone]) to proceed with care transfer and update on PET, see her sooner Please call if any questions about Mrs Cole's care. Tacho Echavarria MD Hematology and Medical Oncology [facility] [phone] Time-Based Billing Statement: I spent 42 minutes [...] day: calling office of Dr Adryan ROWAN ([phone]) documented in this encounter Miscellaneous Notes * Addendum Note - Tacho Echavarria MD - 03/24/2025 1:40 PM EDTEncounter addended by: Tacho Echavarria MD on: 03/25/2025 12:55 PM Actions taken: Clinical Note Signed documented in this encounter Plan of Treatment Upcoming Encounters Date Type Department Care Team (Late st Contact Info) Description 05/19/2025 2:15 PM EST Office Visit [facility] [address] [place] [address] [address] [place] [address] Sin Tran MD [address] [place] [phone] 06/08/2025 12:45 PM EST Procedure visit [facility] [address] [facility] [address] [place] [address] Samm Ledesma APRN [address] [facility] [address] [place] [address] 08/12/2025 10:40 AM EST Appointment [facility] [place] [address] Matt Ulrich MD [address] [place] [address] [place] [address] documented as of this encounter Goals Goal Patient Goal Type Associated Problems Recent Progress Patient-Stated? Author Blood Pressure < 140/90 Blood Pressure 123/84(03/24 1:35 PM EDT) No Chetna Cedeno MD Breast [facility] Breast Health On track(2024 11:27 AM EDT) No Jasmin Porter, RAUL Note: Patient acknowledges understanding of new diagnosis, plan of care, available resources and how to contact Nurse Navigator with any future questions or concerns. Breast [facility] Not on track(2024 11:27 AM EDT) No Jasmin Porter, RAUL Note: Patient will be compliant with monthly SBE and is aware of who to contact for any unusual or concerning findings. Breast [facility] On track(2024 11:27 AM EDT) No Demi [...] - 145 mmol/L 03/24/2025 1:58 PM EDT [facility] Potassium 3.8 3.5 - 5.0 mmol/L 03/24/2025 1:58 PM EDT [facility] Chloride 104 98 - 107 mmol/L 03/24/2025 1:58 PM EDT [facility] Total CO2 23 22 - 29 mmol/L 03/24/2025 1:58 PM EDT [facility] Anion Gap 13 7 - 16 mmol/L 03/24/2025 1:58 PM EDT [facility] Calcium 9.1 8.6 - 10.4 mg/dL 03/24/2025 1:58 PM EDT [facility] Glucose Lvl 114(H) 70 - 99 mg/dL 03/24/2025 1:58 PM EDT [facility] BUN 14 6 - 20 mg/dL 03/24/2025 1:58 PM EDT [facility] Creatinine 0.81 0.51 - 1.30 mg/dL 03/24/2025 1:58 PM EDT [facility] Albumin 3.9 3.5 - 5.2 gm/dL 03/24/2025 1:58 PM EDT [facility] Total Protein 6.4 6.4 - 8.3 gm/dL 03/24/2025 1:58 PM EDT [facility] Bili Total 0.4 0.2 - 1.3 mg/dL 03/24/2025 1:58 PM EDT [facility] ALT 8 <=41 U/L 03/24/2025 1:58 PM EDT [facility] AST 14 <=40 U/L 03/24/2025 1:58 PM EDT [facility] Alk Phos 146(H) 36 - 123 U/L 03/24/2025 1:58 PM EDT [facility] eGFR (CKD-EPIcr 2020) 84 >=60 mL/min/1.7 3 m2 03/24/2025 1:58 PM EDT [facility] Comment:Estimated GFR was ca lculated using the CKD-EPIcr (2020) equation refit without race. The equation is recommended by the National Kidney Foundation - [place] Society of Nephrology Task Force. Blood VENOUS STRUCTURE / Unknown Port / Unknown 03/24/2025 1:29 PM EDT 03/24/2025 1:36 PM EDT Tacho Echavarria MD CHEMISTRY ORDERABLES Final Result [facility] [address] [place] [address] * (ABNORMAL) CBC WITH DIFF (03/24/2025 1:29 PM EDT) [facility] Signature WBC 3.9 3.7 - 10.3 x10(3)/mc L 03/24/2025 1:40 PM EDT [facility] RBC 2.92(L) 3.90 - 5.20 x10(6)/mc L 03/24/2025 1:40 PM EDT [facility] Hgb 9.7(L) 11.2 - 15.7 g/dL 03/24/2025 1:40 PM EDT [facility] Hct 28.2(L) 34.0 - 45.0 % 03/24/2025 1:40 PM EDT [facility] MCV 96.6 80.0 - 100.0 fL 03/24/2025 1:40 PM EDT [facility] MCH 33.2 26.0 - 34.0 pg 03/24/2025 1:40 PM EDT [facility] MCHC 34.4 30.7 - 35.5 g/dL 03/24/2025 1:40 PM EDT [facility] RDW 13.7 <=14.9 % 03/24/2025 1:40 PM EDT [facility] Platelet 197 155 - 369 x10(3)/mc L 03/24/2025 1:40 PM EDT [facility] MPV 8.9 8.8 - 12.5 fL 03/24/2025 1:40 PM EDT [facility] Neut # Prelim 2.3 1.6 - 6.1 x10(3)/mc L 03/24/2025 1:40 PM EDT [facility] Comment:Preliminary automate d absolute neutrophil count. Value may change if manual differential is indicated. Neut Percent 60.4 % 03/24/2025 1:40 PM EDT [facility] Comment:Neutrophils equals s egs plus bands Imm Gran% 0.3 % 03/24/2025 1:40 PM EDT [facility] Comment:Automated count of m etamyelocytes, myelocytes and promyelocytes. Lymph Percent 28.2 % 03/24/2025 1:40 PM EDT [facility] Major Percent 8.5 % 03/24/2025 1:40 PM EDT [facility] Eos Percent 1.3 % 03/24/2025 1:40 PM EDT [facility] Baso Percent 1.3 % 03/24/2025 1:40 PM EDT [facility] Neut # 2.3 1.6 - 6.1 x10(3)/mc L 03/24/2025 1:40 PM EDT [facility] Comment:Neutrophils equals s egs plus bands IMMGRAN# 0.0 0.0 - 0.1 x10(3)/mc L 03/24/2025 1:40 PM EDT [facility] Comment:Automated count of m etamyelocytes, myelocytes and promyelocytes. An absolute IG <0.1 is reported as 0.0. Lymph # 1.1(L) 1.2 - 3.9 x10(3)/mc L 03/24/2025 1:40 PM EDT [facility] Major # 0.3 0.3 - 0.9 x10(3)/mc L 03/24/2025 1:40 PM EDT [facility] Eos# 0.1 0.0 - 0.5 x10(3)/mc L 03/24/2025 1:40 PM EDT [facility] Baso # 0.1 0.0 - 0.1 x10(3)/ L 03/24/2025 1:40 PM EDT [facility] Blood VENOUS STRUCTURE / Unknown Port / Unknown 03/24/2025 1:29 PM EDT 03/24/2025 1:35 PM EDT Tacho Echavarria MD HEMATOLOGY ORDERABLES Final Result [facility] [address] [place] [address] documented in this encounter Visit Diagnoses Diagnosis [...] Catcher Relationship Specialty Start Date End Date Ayush Marrero MD [address] [place] [address] PCP - General Family Medicine 03/09/25 Arlyn Schmidt MD [address] [place], [place] [id number] Consulting Physician Internal Medicine-Endocrinology, Diabetes & Metabolism 11/28/20 Tacho Echavarria MD [address] [place] [address] Internal Medicine-Medical Oncology 11/12/23 Matt Ulrich MD 1 [place] [address] Surgery-Surgical Oncology 12/04/23 Eze Brock Pastoral Care 12/13/23 Annette Walker MSW Protection Manager 05/13/24 Batool Celis MD [address] [place] [address] Radiation Oncologist Radiology-Radiation Oncology 06/08/24 documented as of this encounter
--- OUTSIDE RECORDS SUMMARY | 2025-04-09 14:46 | XMS_ITS | Encounter Summary ---
Author [place] [address] Care Team Providers Care Cyber Security Name Role Phone Arlyn Schmidt MD Unavailable [phone] Tacho Echavarria MD Unavailable [phone] Matt Ulrich MD Unavailable [phone] Eez Brock Unavailable Annette Walker AIRFRAME TECHNICAL OFFICER Unavailable [phone] Batool Celis MD Unavailable [phone] Ayush Marrero MD Primary Care Provider [phone] Reason for Referral * MRI/CAT Scan (Emergency) - Closed Specialty Diagnoses / Procedures Referred By Contac t Referred To Contact Radiology Diagnoses Intraductal carcinoma in situ of right breast Procedures MRI BRAIN ATTN PITUITARY W WO CONTRAST MRI BRAIN W WO CONTRAST Adryan Rowan MD [address] [facility] [address] [place] [address] Phone: tel: fax: [facility] [address] [place] [address] Phone: tel: Referral ID Status Reason Start Date Expiration Date Visits Re quested Visits Authorized [id number] Closed 03/22/2025 03/22/2026 1 1 Reason for Visit * MRI/CAT Scan (Emergency) - Closed Specialty Diagnoses / Procedures Referred By Van t Referred To Contact Radiology Diagnoses Intraductal carcinoma in situ of right breast Procedures MRI BRAIN ATTN PITUITARY W WO CONTRAST MRI BRAIN W WO CONTRAST Adryan Rowan MD [address] [facility] [address] [place] [address] Phone: tel: fax: [facility] [address] [place] [address] Phone: tel: Referral ID Status Reason Start Date Expiration Date Visits Re quested Visits Authorized [id number] Closed 03/22/2025 03/22/2026 1 1 Encounter Details Date Type Department Care Team (Late st Contact Info) Description 04/09/2025 2:46 PM EDT - 04/09/2025 11:59 PM EDT Hospital Encounter [facility] [address] [place] [address] Adryan Rowan MD [address] [facility] [address] [place] [id number] Intraductal carcinoma in situ of right breast [...] Recorded In the past 12 months has [employer], gas, oil, or water company threatened to [...] 5 07/07/2024 [facility] - Occupational Stress Questionnaire Answer [...] facility (including now)? No 11/07/2023 [facility] IP Transportation Answer D ate Recorded In [...] 4 fluticasone propionate (FLONASE) 50 mcg/actuation Nasl [place], Suspension 1 [place] by Nasal route daily. 1 Each 11 4 Inhalational Spacing Device (AEROCHAMBER MV) Misc Spacer 1 Each by [facility] [...] Description 05/19/2025 2:15 PM EST Office Visit [facility] [place] [address] [place] [address] [address] [place] [address] Sin Tran MD [address] [place] [address] [place] [address] 06/08/2025 12:45 PM EST Procedure visit [facility] [address] [facility] [address] [place] [address] Samm Ledesma, TANK MAKER WOOD [address] [facility] [address] [place] [address] 08/12/2025 10:40 AM EST Appointment [facility] [place] [facility] Emilee [place] [id number] Matt Ulrich MD [address] [place] [address] [place] [address] documented as of this encounter Goals Goal Patient Goal Type Associated Problems Recent Progress Patient-Stated? Author Blood Pressure < 140/90 Blood Pressure 123/84(03/24 1:35 PM EDT) No Chetna Cedeno MD [facility] On track(2024 11:27 AM EDT) No Jasmin Porter, RAUL Note: Patient acknowledges understanding of new diagnosis, plan of care, available resources and how to contact Nurse Navigator with any future questions or concerns. [facility] Not on track(2024 11:27 AM EDT) No Jasmin Porter, RAUL Note: Patient will be compliant with monthly SBE and is aware of who to contact for any unusual or concerning findings. [facility] Breast [facility] On track(2024 11:27 AM [...] HISTORY: D05.11-Intraductal carcinoma in situ of right ecvuvg-CDY-22-CM. COMPARISON: CT brain 01/12/2024, MRI 01/06/2024 and [...] HISTORY: D05.11-Intraductal carcinoma in situ of right jlkbnv-THL-12-CM. COMPARISON: CT brain 01/12/2024, MRI 01/06/2024 and dating back to05/01/2018. PROCEDURE COMMENTS: Multiplanar sequences obtained with and withoutGadolinium contrast as recorded in Epic.. Sequences include thin section precontrastand dynamic post contrast coronal T1 images through the sella. FINDINGS: Redemonstrated is a lesion along the superior aspect of the pituitarygland measuring approximately 9 mm across with a crescentic anterior M1gkczrhajazcs component. This lesion otherwise appears filled by [...] 04/09/25 at 1514, Until Sat04/09/25 at 1527, Radiology [...] Given 04/09/2025 3:27 PM EDT 10 mL L eft Arm sodium chloride bacteriostatic 0.9 % injection [...] as of this encounter Care Teams Cyber Security Relationship Specialty Start Date End Date Ayush Marrero MD [address] [place] [address] PCP - General Family Medicine 03/09/25 Arlyn Schmidt MD [address] [place] [address] Consulting Physician Internal Medicine-Endocrinology, Diabetes & Metabolism 11/28/20 Tacho Echavarria MD 1 [place] [address] Internal Medicine-Medical Oncology 11/12/23 Matt Ulrich MD 1 [place], [place] [id number] Surgery-Surgical Oncology 12/04/23 Eze Brock Pastoral Care 12/13/23 Annette Walker, ARACELI Payroll Representative 05/13/24 Batool Celis MD 1 [place] [address] Radiation Oncologist Radiology-Radiation Oncology 06/08/24 documented as of this encounter
--- OUTSIDE RECORDS SUMMARY | 2025-05-04 11:53 | XMS_ITS | Encounter Summary ---
Author Organization [place] [address] Care Team Providers Care Datapower Developer Name Role Phone Chetna Cedeno MD Primary Care Provider [phone] Arlyn Schmidt MD Unavailable [phone] Tacho Echavarria MD Unavailable [phone] Matt Ulrich MD Unavailable [phone] Eze Brock Unavailable Cheryl Nair RN Unavailable [phone] Annette Walker SKATE MAKER Unavailable [phone] Batool Celis MD Unavailable [phone] Ayush Marrero MD Primary Care Provider [phone] Encounter Details Date Type Department Care Team (Late st Contact Info) Description 09/11/2024 Lab Requisition [facility] [place] [address] Beata Kebede MD [address] [place] [address] Social History Tobacco Use Types Packs/Day Years [...] 5 07/07/2024 [facility]ational Stress Questionnaire Answer Date [...] in a chcf (including now)? No 11/07/2023 [facility] IP Transportation [...] Description 05/19/2025 2:15 PM EST Office Visit [facility] [address] [facility] [address] [place] [address] Sin Tran MD [facility] [place] [address] 06/08/2025 12:45 PM EST Procedure visit [facility] [address] [facility] [address] [place] [address] Samm Ledesma APRN [address] [facility] [address] [place] [address] 08/12/2025 10:40 AM EST Appointment [facility] Women's [facility] [place] [address] Matt Ulrich MD [address] [place] [address] [address] [place] [address] documented as of this encounter [...] EST) CASE REPORT Surgical Pathology Report Case: [id number] Authorizing Provider: Beata Kebede MD Collected: 09/11/2024 1313 Ordering Location: [facility] Received: 09/11/2024 1313 Pathologist: Diane Ellis MD Specimen: Breast, Request for cases [id number], [id number] slides to [facility]. 09/15/2024 12:14 PM EDT [facility] FINAL DIAGNOSIS Results will be scanned in this case as an addendum. 09/15/2024 12:14 PM EDT [facility] at 1338 EST EMBEDDED IMAGES 09/15/2024 12:14 PM EDT [facility] ADDENDUM Refer to Scanned [facility] Report for [id number] & [id number]. 09/15/2024 12:14 PM EDT [facility] Addendum electronically signed by Diane Ellis MD on 09/15/2024 at 1214 EDT Tissue BREAST STRUCTURE / Unknown 09/11/2024 1:13 PM EST 09/11/2024 1:13 PM EST us Beata Kebede MD PATHOLOGY ORDERABLES Edited R esult - Final [facility] [address] [place] [id number] documented in this encounter Visit Diagnoses Not on filedocumented in this encounter Additional Health Concerns Infection Onset Date Last Indicated Resolved Time COVID-19 09/04/2024 09/04/2024 09/24/2024 10:1 2 PM EDT Assessment Noted Time PHQ-9 Depression Total Score: 17 024 8:39 AM EST PHQ-2 Depression Total Score: 5 07/07/20 24 8:39 AM EST documented as of this encounter Care Teams Datapower Developer Relationship Specialty [place] [address] [place] [address] PCP - General 06/21/10 03/08/25 Ayush Marrero MD [address] [place] [address] PCP - General Family Medicine 03/09/25 Arlyn Schmidt MD [address] [place], [place] [address] Consulting Physician Internal Medicine-Endocrinology , Diabetes & Metabolism 11/28/20 Tacho Echavarria MD 1 [place], [place] [id number] Internal Medicine-Medical Oncology 11/12/23 Matt Ulrich MD 1 [place] [address] Surgery-Surgical Oncology 12/04/23 Eze Brock Pastoral Care 12/13/23 Cheryl Nair, RN Oncology Nurse Navigator 03/25/2412/13 Annette Walker, SKATE MAKER Hotel Associate 05/13/24 Batool Celis MD [address] [place] [address] Radiation Oncologist Radiology-Radiation Oncology 06/08/24 documented as of this encounter
--- OUTSIDE RECORDS SUMMARY | 2025-05-04 11:53 | XMS_ITS | Encounter Summary ---
Author Organization [place] [address] Care Team Providers Care Mirror Inspector Name Role Phone Arlyn Schmidt MD Unavailable [phone] Tacho Echavarria MD Unavailable [phone] Matt Ulrich MD Unavailable [phone] Eze Brock Unavailable Annette Walker DEWATERER OPERATOR Unavailable [phone] Batool Celis MD Unavailable [phone] Ayush Marrero MD Primary Care Provider [phone] Reason for Visit * Reason Onset Date Comments Information Only 04/09/2025 MRI order Encounter Details Date Type Department Care Team (Late st Contact Info) Description 04/09/2025 Telephone [facility] Medical Oncology [place], [place] [id number] Adryan Rowan MD [address] [facility] [address] [place] [address] Information Only (MRI order ) Social History Tobacco Use Types Packs/Day [...] a skilled nursing (including now)? No 11/07/2023 [facility] IP Transportation Answer D ate [...] encounter Miscellaneous Notes * Telephone Encounter - Ritika Grady NA - 04/09/2025 2:33 PM EDT Reason for call: Jason with [facility] called stating that she has faxed over pts MRI order several times. Call placed to MRI and gave Jason their fax number for order to be faxed to them where they will upload it Gave Jason fax number provided as [phone] No further needs. documented in this encounter Plan of Treatment Upcoming Encounters Date Type Department Care Team (Late st Contact Info) Description 05/19/2025 2:15 PM EST Office Visit [facility] [address] [place] [address] [address] [place] [address] Sin Tran MD [address] [place] [address] 06/08/2025 12:45 PM EST Procedure visit [facility] [address] [facility] [address] [place] [address] Samm Ledesma NICK SETTER [address] [facility] [address] [place] [address] 08/12/2025 10:40 AM EST Appointment [facility] Women's Wellness [place] [address] Matt Ulrich MD [address] [place] [address] [address] [place] [address] documented as of this encounter [...] documented as of this encounter Care Teams Mirror Inspector Relationship Specialty Start Date End Date Ayush Marrero MD [address] [place] [address] PCP - General Family Medicine 03/09/25 Arlyn Schmidt MD [address] [place] [address] Consulting Physician Internal Medicine-Endocrinology, Diabetes & Metabolism 11/28/20 Tacho Echavarria MD 1 [place] [id number] Internal Medicine-Medical Oncology 11/12/23 Matt Ulrich MD 1 [place] [id number] Surgery-Surgical Oncology 12/04/23 Eze Brock Pastoral Care 12/13/23 Annette Walker, DEWATERER OPERATOR Paralegal Internship 05/13/24 Batool Celis MD 1 [facility] [place] [address] Radiation Oncologist Radiology-Radiation Oncology 06/08/24 documented as of this encounter
--- OUTSIDE RECORDS SUMMARY | 2025-05-04 11:53 | XMS_ITS | Encounter Summary ---
Author Organization [place] [address] Care Team Providers Care Hospitalist Nocturnist Physician Name Role Phone Arlyn Schmidt MD Unavailable [phone] Tacho Echavarria MD Unavailable [phone] Matt Ulrich MD Unavailable [phone] Eze Brock Unavailable Annette Walker MANAGER NET Unavailable [phone] Batool Celis MD Unavailable [phone] Ayush Marrero MD Primary Care Provider [phone] Encounter Details Date Type Department Care Team (Late st Contact Info) Description 03/24/2025 Telephone [facility] Medical Oncology [place], [place] [phone] Tacho Echavarria MD [address] [place] [phone] Social History Tobacco Use Types Packs/Day Years [...] the past 12 months has th e [employer], gas, oil, or water [employer] threatened to shut off services in your [...] Recorded PHQ-2 Total Score 5 07/07/2024 [facility] of Occupat ional Health - Occupational Stress [...] Telephone Encounter - Rosana Gupta RN - 03/24/2025 3:52 PM EDT Highlight message sent asking for records from [facility]. documented in this encounter Plan of Treatment Upcoming Encounters Date Type Department Care Team (Late st Contact Info) Description 05/19/2025 2:15 PM EST Office Visit [address] [address] Sin Tran MD [address] [place] [address] 06/08/2025 12:45 PM EST Procedure visit [facility] [address] [facility] [address] [place] [address] Samm Ledesma APRN [address] [facility] 100 [place] [address] 08/12/2025 10:40 AM EST Appointment [facility] Women's Wellness [facility] [place] [address] Matt Ulrich MD [address] [place] [address] [address] [place] [address] documented as of this encounter [...] with any future questions or concerns. Breast [facility] Breast Health Not on track(2024 [...] as of this encounter Care Teams Hospitalist Nocturnist Physician Relationship Specialty Start Date End Date Ayush Marrero MD [address] [place] [address] PCP - General Family Medicine 03/09/25 Arlyn Schmidt MD [address] [place] [address] Consulting Physician Internal Medicine-Endocrinology, Diabetes & Metabolism 11/28/20 Tacho Echavarria MD 1 [place] [address] Internal Medicine-Medical Oncology 11/12/23 Matt Ulrich MD 1 [place] [address] Surgery-Surgical Oncology 12/04/23 Eze Brock Pastoral Care 12/13/23 Annette Walker, MANAGER NET Econometrician 05/13/24 Batool Celis MD [address] [facility] [place] [address] Radiation Oncologist Radiology-Radiation Oncology 06/08/24 documented as of this encounter
--- OUTSIDE RECORDS SUMMARY | 2025-05-04 11:53 | XMS_ITS ---
Author Organization Emilee VELIZJude OD Address [facility] [address] [place], [place] [address] Phone Care Team Providers Care Recording Studio Internship Name Role Phone Arlyn Schmidt MD Unavailable [phone] Tacho Echavarria MD Unavailable [phone] Matt Ulrich MD Unavailable [phone] Eze Brock Unavailable Annette Walker Unavailable [phone] Batool Celis MD Unavailable [phone] Ayush Marrero MD Primary Care Provider [phone] Active Problems * This document contains information received from the source organization and may not represent a complete record from that organization. Patient Care Coordination No te Formatting of this note migh t be different from the original. [facility] - Sin Tran MD Controlled [...] Functional capacity documented (EVERY VISIT)01/03/2022 [facility] [address] [place] [phone] [address] [facility] [phone] AIS POA: 02/10/2025 josh as expected #[id number] Josh 08-05-2018 adm Josh 08-14-18 adm UDS 08-08-18 adm Care gap audit completed by Medina White RN on 01/01/2022. 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 Care Team Medical Oncologist Dr. Tacho Echavarria Surgeon Dr. Matt Ulrich Radiation Oncologist Dr. Batool Celis Primary Care Physician Chetna Cedeno MD Cancer Diagnosis Information Diagnosis date 10/29/23 Diagnosis and Staging information Invasive Ductal Carcinoma, right breast Clinical Stage IIIB (cT3, cN3a(f), M0, G3, ER+, AL+, Her2-) Pathologic Stage y(pT3, pN3a, G3 ER+, AL+, Her2-) Tumor markers Breast: Estrogen Receptor positive (92%) Progesterone Receptor positive (55%) Her-2 negative Background Information/Additional Screening Recommendations Genetics testing Negative (Need Fixed Hereditary Cancer 67-gene panel) Tobacco use Nonsmoker. [...] up to GI tolerance for2 yr planned ([place]-E regimen) Radiation therapy External beam radiotherapy to a total dose of 60 Gy; 50 Gy to right chest wall and regional lymph nodes including internal mammary + 10 Gy boost to the undissected nodes. Delivered in a total of 30 fractions Endocrine Therapy Arimidex started 10/08/24 + Verzenio. Changed to Aromasin give [facility] Oncology Timeline Oncology History Invasive ductal carcinoma of breast, female, right (HCC) 10/29/2023 Initial Diagnosis Invasive ductal carcinoma of right breast, grade 3 A. Breast, right, 6:00, Invasive ductal carcinoma, grade 3 ER 80%, AL 11%, Her2 negative B. Breast, right, 5:00 Invasive ductal carcinoma grade 3 ER 92%, AL 55%, Her2 negative 11/11/2023 - Consult Initial [...] to GI tolerance for 2 yr planned ([place]-E regimen) 10/2024 - changed to Aromasin d/t [...] Stage IIIB (cT3, cN3a(f), cM0, G3, ER+, AL+, HER2-) Pathologic Stage ypT3, ypN3a, G3, ER+, AL+, HER2- Right breast cancer with T3 tumor, [...] General Health Continue follow-up with PCP and ROCK CRUSHING MACHINE OPERATOR as directed Recommendations Self-care plan: What [...] your body,see your regular doctor, physician assistant import manager, or nurse practitioner. If what you are [...] excess. I doubt the patient has underlying Mesa's disease. We will proceed with the work-up [...]
--- OUTSIDE RECORDS SUMMARY | 2025-05-04 11:53 | XMS_ITS | Encounter Summary ---
Author Organization [place] [address] Care Team Providers Care Light Rail Transit Operator Name Role Phone Arlyn Schmidt MD Unavailable [phone] Tacho Echavarria MD Unavailable [phone] Matt Ulrich MD Unavailable [phone] Eze Brock Unavailable Annette Walker RAT CULTURIST Unavailable [phone] Batool Celis MD Unavailable [phone] Ayush Marrero MD Primary Care Provider [phone] Encounter Details Date Type Department Care Team (Late st Contact Info) Description 03/23/2025 Social Work [facility] [place] [address] Annette Walker, RAT CULTURIST Social History Tobacco Use Types Packs/Day Years [...] Recorded In the past 12 months has [employer], oil, or [employer] threatened to shut off services in your [...] Date Recorded PHQ-2 Total Score 5 07/07/2024 [facility] of Occupat ional [facility] - Occupational Stress Questionnaire Answer Date [...] a care home (including now)? No 11/07/2023 [facility] IP [...] - 03/23/2025 3:38 PM EDT 03/23/25 1538 Sfd[employer] Solution Architect Assessment Referred By Claudia THOMSON RN Disease/[place] Energy Director Assignment Breast cancer Referral Location: Medical Oncology Reason for Referral Adjustment to illness/Financial Identified Needs Financial issues;Adjustment to illness Social Work Interventions Brief Couseling/Support;Education/Information;Financial/Efren MOMD TEACHER received referral from Claudia Cline RN that Patient could use emotional support regarding diagnosis of metastatic disease. MOMD TEACHER spoke with Patient and provided brief counseling/support to her emotionally. MOMD TEACHER allowed time for processing her disappointment and fear regarding the future. Patient is still residing a significant distance from [facility] and is not sure she will continue treatment at this location. MOMD TEACHER discussed options including the [employer]'s Lodging Program that could assist with lodging expenses if she needed to stay in [facility] for treatment. There are a limited number of free nights and then discounted nightly rate. Patient is continuing telehealth therapy with [facility] through [facility]. Patient also reports taking her medication regularly to address her depression. Patient processed emotions regarding mortality. Patient will be in clinic tomorrow to meet with Dr. Echavarria. Patient requested any additional assistance for financial need. MOMD TEACHER explained Patient has exhausted several grants that are limited to one time but MOMD TEACHER will explore additional opportunities. documented in this encounter Plan of Treatment Upcoming Encounters Date Type Department Care Team (Late st Contact Info) Description 05/19/2025 2:15 PM EST Office Visit [address] [address] Sin Tran MD [address] [place] [id number] 06/08/2025 12:45 PM EST Procedure visit [facility] [address] [place] [address] Jamielorna Samm Dillon, LEYLA [address] [place] [address] 08/12/2025 10:40 AM EST Appointment [facility] Women's Wellness [facility] [place] [address] Matt Ulrich MD [address] [place] [address] [address] [place] [address] documented as of this encounter Goals Goal Patient Goal Type Associated Problems Recent Progress Patient-Stated? Author Blood Pressure < 140/90 Blood Pressure 123/84(03/24 1:35 PM EDT) No Chetna Cedeno MD Breast [facility] Breast Health On track(2024 11:27 AM EDT) No Jasmin Porter, RAUL Note: Patient acknowledges understanding of new diagnosis, plan of care, available resources and how to contact Nurse Navigator with any future questions or concerns. Breast [facility] Breast Health Not on track(2024 11:27 AM EDT) No Jasmin Porter, RAUL Note: Patient will be compliant with monthly SBE and is aware of who to contact for any unusual or concerning findings. Breast [facility] Breast Health On track(2024 11:27 AM [...] documented as of this encounter Care Teams Light Rail Transit Operator Relationship Specialty Start Date End Date Ayush Marrero MD [address] [place] [place], [place] [id number] PCP - General Family Medicine 03/09/25 Arlyn Schmidt MD [address] [place], [place] [id number] Consulting Physician Internal Medicine-Endocrinology, Diabetes & Metabolism 11/28/20 Tacho Echavarria MD 1 [place] [address] Internal Medicine-Medical Oncology 11/12/23 Matt Ulrich MD 1 [place] [address] Surgery-Surgical Oncology 12/04/23 Eze Brock Pastoral Care 12/13/23 Annette Walker, ARACELI Energy Director 05/13/24 Batool Celis MD 1 [facility] [place] [address] Radiation Oncologist Radiology-Radiation Oncology 06/08/24 documented as of this encounter
--- OUTSIDE RECORDS SUMMARY | 2025-05-04 11:54 | XMS_ITS | Encounter Summary ---
Author Organization [place] [address] Care Team Providers Care Spray Drier Operator Name Role Phone Arlyn Schmidt MD Unavailable [phone] Tacho Echavarria MD Unavailable [phone] Matt Ulrich MD Unavailable [phone] Eze Brock Unavailable Annette Walker ANALYTICAL SCIENTIST Unavailable [phone] Batool Celis MD Unavailable [phone] Ayush Marrero MD Primary Care Provider [phone] Encounter Details Date Type Department Care Team (Late st Contact Info) Description 03/09/2025 Telephone Cancer Care Medical Oncology [place], [place] [id number] Tacho Echavarria MD [address] [place] [address] [id number] Social History Tobacco Use Types Packs/Day Years [...] the past 12 months has th e [employer], gas, oil, or water [employer] threatened to shut off services in [...] 5 07/07/2024 [facility] [place] of Occupat ional Health - Occupational Stress [...] health care facility (including now)? No 11/07/2023 [facility] IP [...] Description 05/19/2025 2:15 PM EST Office Visit [address] [place] [address] Sin Tran MD [address] [place] [address] 06/08/2025 12:45 PM EST Procedure visit [facility] [address] [facility] [address] [place] [address] Samm Ledesma APRN [address] [facility] [address] [place] [address] 08/12/2025 10:40 AM EST Appointment [facility] Women's Wellness [facility] [place] [address] Matt Ulrich MD [address] [place] [address] [address] [place] [address] documented as of this encounter [...] documented as of this encounter Care Teams Spray Drier Operator Relationship Specialty Start Date End Date Ayush Marrero MD [address] [place] [address] PCP - General Family Medicine 03/09/25 Arlyn Schmidt MD [address] [place] [address] Consulting Physician Internal Medicine-Endocrinology, Diabetes & Metabolism 11/28/20 Tacho Echavarria MD 1 [place] [address] Internal Medicine-Medical Oncology 11/12/23 Matt Ulrich MD 1 [place] [address] Surgery-Surgical Oncology 12/04/23 Eze Brock Pastoral Care 12/13/23 Annette Walker, ARACELI Sheet Combining Operator 05/13/24 Batool Celis MD 1 [facility] [id number] Radiation Oncologist Radiology-Radiation Oncology 06/08/24 documented as of this encounter
--- OUTSIDE RECORDS SUMMARY | 2025-05-04 11:54 | XMS_ITS | Encounter Summary ---
Author Organization [place] Address [facility] Sandeep [facility] [place] [address] Care Team Providers Care Senior Mechanical Estimator Name Role Phone Chetna Cedeno MD Primary Care Provider [phone] Arlyn Schmidt MD Unavailable [phone] Tacho Echavarria MD Unavailable Matt Ulrich MD Unavailable Eze Brock Unavailable Cheryl Nair RN Unavailable [phone] Sanam Murray CHRISTIAN SCIENCE HEALER Unavailable Unavailable Annette Walker CHRISTIAN SCIENCE HEALER Unavailable [phone] Batool Celis MD Unavailable [phone] Ayush Marrero MD Primary Care Provider [phone] Encounter Details Date Type Department Care Team (Late st Contact Info) Description 07/06/2024 Orders Only [facility] [place] [address] Shilpa Tan MD [address] [place] [address] [phone] Social History Tobacco Use Types Packs/Day Years [...] Total Score 5 07/07/2024 [facility] - Occupational Stress Questionnaire Answer [...] in a alf (including now)? No 11/07/2023 [facility] IP Transportation Answer D [...] 07/06/2024 4:32 PM Kayla Lee RN * [place] Suicide Severity Rating Scale (Q shift for moderate and high) Question Answer Date of Assessment Author 1. In the past month, have y ou wished you were or wished you could go to sleep and not wake up? 0 07/06/2024 4:32 PM EST Kayla James RN 2. In the past month, have y ou actually had any thoughts of killing yourself? (If no, skip to question 6) 0 07/06/2024 4:32 PM EST Kayla Saleh, R N 6. Have you ever done anythi ng, started to do anything, or prepared to do anything to end your life? 0 07/06/2024 4:32 PM EST Kayla Mckenzie RN documented as of this encounter Mental Status * Because of a physical, mental or emotional condition, does this person have serious difficulty concentrating, remembering or making decisions? Answer Entry Date Author No 12/06/2022 2:08 PM Macarena Henson CCMA documented in this encounter Plan of Treatment Upcoming Encounters Date Type Department Care Team (Late st Contact Info) Description 05/19/2025 2:15 PM EST Office Visit [facility] [address] [facility] [address] [place] [address] Sin Tran MD [address] [place] [address] 06/08/2025 12:45 PM EST Procedure visit [facility] [address] [place], [place] [address] Samm Ledesma, LEYLA [address] [place], [place] [address] 08/12/2025 10:40 AM EST Appointment [facility] Women's Wellness [facility] [place] [phone] Matt Ulrich MD [address] [place] [address] [address] [place] [address] documented as of this encounter Goals Goal [...] Procedure Name Priority Date/Time Associated Diagnosis Comments NEODealAngel BREAST PANEL (3 STAIN) Routine 07/06/2024 12:51 PM EST documented in this encounter Results * NEOGENOMICS BREAST PANEL (3 STAIN) (07/06/2024 12:51 PM EST) 07/06/2024 12:5 1 PM EST Narrative [facility] - 09/24/2024 2:57 PM EDT Requesting Provider: MATT Womack Specimen = [id number] us Shilpa Tan MD PATHOLOGY ORDERABLES Final R esult [facility] 1 [place], [place] [id number] documented in this encounter Visit Diagnoses Not on filedocumented in this encounter Additional Health Concerns Infection Onset Date Last Indicated Resolved Time COVID-19 09/04/2024 09/04/2024 09/24/2024 10:1 2 PM EDT Assessment Noted Time PHQ-9 Depression Total Score: 12 024 12:00 PM EDT documented as of this encounter Care Teams Senior Mechanical Estimator Relationship Specialty [place] [address] [place] [address] PCP - General 06/21/10 03/08/25 Ayush Marrero MD [address] [place] [address] PCP - General Family Medicine 03/09/25 Arlyn Schmidt MD [address] [place] [address] Consulting Physician Internal Medicine-Endocrinology , Diabetes & Metabolism 11/28/20 Tacho Echavarria MD 1 [place], [place] [address] Internal Medicine-Medical Oncology 11/12/23 Matt Ulrihc MD 1 [place] [address] Surgery-Surgical Oncology 12/04/23 Eze Brock Pastoral Care 12/13/23 Cheryl Nair, RN Oncology Nurse Navigator 03/25/2412/13 Sanam Murray MSW Media Associate 04/10/24 07/30/24 Annette Walker MSW Media Associate 05/13/24 Batool Celis MD 1 [facility] [place] [address] Radiation Oncologist Radiology-Radiation Oncology 06/08/24 documented as of this encounter
--- OUTSIDE RECORDS SUMMARY | 2025-05-04 11:54 | XMS_ITS | Encounter Summary ---
Author Organization [place] [address] Care Team Providers Care Wire Coiner Name Role Phone Chetna Cedeno MD Primary Care Provider [phone] Arlyn Schmidt MD Unavailable [phone] Tacho Echavarria MD Unavailable [phone] Matt Ulrich MD Unavailable [phone] Eze Brock Unavailable Annette Walker Unavailable [phone] Batool Celis MD Unavailable [phone] Ayush Marrero MD Primary Care Provider [phone] Reason for Referral * In Office Procedure (Routine) - PCP Precert Acquired Specialty Diagnoses / Procedures Referred By Van t Referred To Contact Neurology Diagnoses Chronic migraine without aura, intractable, with status migrainosus Procedures BOTOX COMMUNICATION ORDER NE INJECTION,ONABOTULINUMTOXINA NE CHEMODERVATE FACIAL/TRIGEM/CERV MUSC MIGRAINE Samm Ledesma, FINISHER CARD TENDER [address] [address] Phone: tel: fax: Samm Ledesma, FINISHER CARD TENDER [address] [place] [address] Phone: tel: fax: Referral ID Status Reason Start Date Expiration Date V isits Requested Visits Authorized [id number] PCP Precert Acquired 03/10/2025 03/10/2026 1 4 Reason for Visit * Reason Onset Date Comments Botox Injection 01/01/2025 ~03/02/2025 Encounter Details Date Type Department Care Team (Late st Contact Info) Description 01/01/2025 Patient Outreach [facility] [address] [place] [address] Samm Ledesma APRN [address] [place] [address] Botox Injection (~03/02/2025 ) Social [...] has e electric, gas, oil, or water [employer] threatened to shut off services in your [...] 5 07/07/2024 [facility] - Occupational Stress Questionnaire Answer [...] in a jail (including now)? No 11/07/2023 [facility] IP Transportation Answer D ate Recorded In [...] [employer] documented as insurance. No longer has [place]. Needs new PA. Will supply sample for appt tomorrow. * Telephone Encounter - Maria Elena Harvey - 01/12/2025 1:09 PM EDT Pt suzy'ed Botox for 03/02/25 * Telephone Encounter - Brittany Narvaez MA - 01/01/2025 11:30 AM EDT ~03/02/2025 ANNIE APPROVED: [id number] AUTH #: ASO ASBM Preferred [id number] DATES OF APPROVAL: 08/12/2024-08/11/2025 UNITS APPROVED: 620 units/ 4 visits documented in this encounter Plan of Treatment Upcoming Encounters Date Type Department Care Team (Late st Contact Info) Description 05/19/2025 2:15 PM EST Office Visit [facility] [address] [address] [place] [address] [place] [address] 06/08/2025 12:45 PM EST Procedure visit [facility] [address] [facility] [address] [place] [address] Samm Ledesma APRN [address] [facility] [address] [place] [address] 08/12/2025 10:40 AM EST Appointment [facility] Women's [facility] [place] [address] Matt Ulrich MD [address] [place] [address] [address] [place] [address] documented as of this encounter Goals Goal [...] as of this encounter Care Teams Wire Coiner Relationship Specialty [place] [address] [place] [address] PCP - General 06/21/10 03/08/25 Aysuh Marrero MD [address] [place] [address] PCP - General Family Medicine 03/09/25 Arlyn Schmidt MD [address] [place] [address] Consulting Physician Internal Medicine-Endocrinology, Diabetes & Metabolism 11/28/20 Tacho Echavarria MD 1 [place] [address] Internal Medicine-Medical Oncology 11/12/23 Matt Ulrich MD 1 [place] [address] Surgery-Surgical Oncology 12/04/23 Eze Brock Pastoral Care 12/13/23 Annette Walker, WATCH AND CLOCK REPAIR CLERK Otologist 05/13/24 Batool Celis MD 1 [facility] [place] [address] Radiation Oncologist Radiology-Radiation Oncology 06/08/24 documented as of this encounter
--- OUTSIDE RECORDS SUMMARY | 2025-05-04 11:54 | XMS_ITS | Encounter Summary ---
Author Organization [place] [address] Care Team Providers Care Glaze Grinder Name Role Phone Chetna Cedeno MD Primary Care Provider [phone] Arlyn Schmidt MD Unavailable [phone] Tacho Echavarria MD Unavailable [phone] Matt Ulrcih MD Unavailable [phone] Eze Brock Unavailable Annette Walker Unavailable [phone] Batool Celis MD Unavailable [phone] Ayush Marrero MD Primary Care Provider [phone] Reason for Visit * Reason Onset Date Comments Medication Refill 03/04/2025 Encounter Details Date Type Department Care Team (Late st Contact Info) Description 03/04/2025 Telephone [facility] [address] [place] [address] [place] [address] [place] [address] Medication Refill Social History Tobacco [...] 07/07/2024 [facility] of Occupat ional [facility] - Occupational Stress Questionnaire Answer Date [...] a skilled nursing (including now)? No 11/07/2023 [facility] [...] Description 05/19/2025 2:15 PM EST Office Visit [facility] [address] [facility] [address] [place] [address] Sin Tran MD [address] [place] [address] 06/08/2025 12:45 PM EST Procedure visit [facility] [address] [facility] [address] [place] [address] Samm Ledesma APRN [address] [facility] [address] [place] [address] 08/12/2025 10:40 AM EST Appointment [facility] Women's Wellness [facility] [place] [address] Matt Ulrich MD [address] [place] [address] [address] [place] [address] documented as of this encounter [...] documented as of this encounter Care Teams Glaze Grinder Relationship Specialty [place] [address] [place] [address] PCP - General 06/21/10 03/08/25 Ayush Marrero MD [address] [place] [address] PCP - General Family Medicine 03/09/25 Arlyn Schmidt MD [address] [place], [place] [address] Consulting Physician Internal Medicine-Endocrinology, Diabetes & Metabolism 11/28/20 Tacho Echavarria MD 1 [place] [address] Internal Medicine-Medical Oncology 11/12/23 Matt Ulrich MD 1 [place] [address] Surgery-Surgical Oncology 12/04/23 Eze Brock Pastoral Care 12/13/23 Annette Walker, SCUBA DIVING INSTRUCTOR Wine Sales Representative 05/13/24 Batool Celis MD 1 [facility] [place] [address] Radiation Oncologist Radiology-Radiation Oncology 06/08/24 documented as of this encounter
--- OUTSIDE RECORDS SUMMARY | 2025-05-04 11:54 | XMS_ITS | Clinical Summary ---
Author Organization [facility] Address [address] [place] [address] Phone Care Team Providers Care Podiatrist Assistant Name Role Phone Chetna Cedeno MD Primary Care Provider [phone] Allergies Active Allergy Reactions Criticality Noted Date [...] patient's age to complete this topic Insurance [facility] MEDICAID Care Teams Podiatrist Assistant Relationship Specialty Start Date End Date Chetna Cedeno MD [facility] [address] [place] [address] PCP - General Family Medicine 01/02/25
--- OUTSIDE RECORDS SUMMARY | 2025-05-04 11:54 | XMS_ITS | Encounter Summary ---
Author Organization [place] Address One [facility] Sandeep [facility] [place] [address] Care Team Providers Care News Internship Name Role Phone Chetna Cedeno MD Primary Care Provider Arlyn Schmidt MD Unavailable [phone] Tacho Echavarria MD Unavailable [phone] Matt Ulrich MD Unavailable Eze Brock Unavailable Cheryl Nair RN Unavailable [phone] Sanam Murray GUARD ENTRANCE REGISTRAR Unavailable Unavailable Annette Walker GUARD ENTRANCE REGISTRAR Unavailable [phone] Batool Celis MD Unavailable [phone] Ayush Marrero MD Primary Care Provider [phone] Encounter Details Date Type Department Care Team (Late st Contact Info) Description 07/06/2024 Orders Only [facility] [place] [address] Shilpa Tan MD [address] [place] [phone] Social History Tobacco Use Types Packs/Day Years [...] your doctor or pharmacy? Never 11/07/2023 [facility] Utilities Answer Date Recorded In the [...] Recorded PHQ-2 Total Score 5 07/07/2024 [facility] - Occupational Stress [...] in a retirement (including now)? No 11/07/2023 [facility] IP Transportation Answer D [...] 07/06/2024 4:32 PM Kayla Lee RN * [place] Suicide Severity Rating Scale (Q shift for [...] Description 05/19/2025 2:15 PM EST Office Visit [facility] [address] [facility] [address] [place] [address] Sin Tran MD [address] [place] [address] 06/08/2025 12:45 PM EST Procedure visit [facility] [address] [place], [place] [address] Samm Ledesma, LEYLA [address] [facility] [place], [place] [address] 08/12/2025 10:40 AM EST Appointment [facility] Women's Wellness [facility] [place] [phone] Matt Ulrich MD [address] [place] [address] [address] [place] [address] documented as of this encounter Goals Goal [...] Procedure Name Priority Date/Time Associated Diagnosis Comments NEOEndpoint Clinical BREAST PANEL (3 STAIN) Routine 07/06/2024 12:51 PM EST documented in this encounter Results * NEOGENOMICS BREAST PANEL (3 STAIN) (07/06/2024 12:51 PM EST) 07/06/2024 12:5 1 PM EST Narrative [facility] - 09/24/2024 2:31 PM EDT Requesting Provider: MATT Womack Specimen = [id number] us Shilpa Tan MD PATHOLOGY ORDERABLES Final R esult [facility] 1 [place], [place] [address] documented in this encounter Visit Diagnoses Not on filedocumented in this encounter Additional Health Concerns Infection Onset Date Last Indicated Resolved Time COVID-19 09/04/2024 09/04/2024 09/24/2024 10:1 2 PM EDT Assessment Noted Time PHQ-9 Depression Total Score: 12 024 12:00 PM EDT documented as of this encounter Care Teams News Internship Relationship Specialty Start [place] [address] [place] [address] PCP - General 06/21/10 03/08/25 Ayush Marrero MD [address] [place] [address] PCP - General Family Medicine 03/09/25 Arlyn Schmidt MD [address] [place] [address] Consulting Physician Internal Medicine-Endocrinology , Diabetes & Metabolism 11/28/20 Tacho Echavarria MD 1 [place], [place] [address] Internal Medicine-Medical Oncology 11/12/23 Matt Ulrich MD 1 [place] [address] Surgery-Surgical Oncology 12/04/23 Eze Brock Pastoral Care 12/13/23 Cheryl Nair, RN Oncology Nurse Navigator 03/25/2412/13 Sanam Murray MSW Insole Lip Turner 04/10/24 07/30/24 Annette Walker MSW Insole Lip Turner 05/13/24 Batool Celis MD 1 [facility] [place] [address] Radiation Oncologist Radiology-Radiation Oncology 06/08/24 documented as of this encounter
--- OUTSIDE RECORDS SUMMARY | 2025-05-04 11:54 | XMS_ITS | Clinical Summary ---
Author Organization [facility] Address [address] [place], [place] [address] Phone Care Team Providers Care Preparation Plant Supervisor Name Role Phone Arlyn Schmidt MD Unavailable [phone] Tacho Echavarria MD Unavailable [phone] Matt Ulrich MD Unavailable [phone] Eze Brock Unavailable Annette Walker GENERAL LABOR Unavailable [phone] Batool Celis MD Unavailable [phone] Ayush Marrero MD Primary Care Provider [phone] Allergies Active Allergy Reactions Criticality Noted Date [...] that organization. Inhalational Spacing Device (AEROCHAMBER MV) Misc Spacer 1 Each by [facility] [...] Susp 200ml, Diphenhydramine 170ml, Lidocaine 2% 50ml, Mladonado syrup 30ml) 450 mL 1 4 6:05 [...] Active fluticasone propionate (FLONASE) 50 mcg/actuation Nasl Odem, Suspension 1 Odem by Nasal route daily. 1 Each 07/03/20 [...] up to 30 days. 30 Tablet 5 06/24/20 25 Active losartan (COZAAR) 50 mg Oral [...] by mouth daily. 30 Tablet 5 5 10:14 AM EDT 02/03/20 [...] not taking.Reason: Therapy Completed, Reported on 03/24/2025 Active Problems Patient Care Coordination No te Formatting of this note migh t be different from the original. [facility] - Sin Tran MD Controlled [...] or Functional capacity documented (EVERY VISIT)01/03/2022 Pharmacy: [address] [address] [address] [facility] [phone] AIS POA: 02/10/2025 josh as expected #[id number] Josh 08-05-2018 adm Josh 08-14-18 adm UDS 2 adm Care gap audit completed by Medina White RN on 01/01/2022. 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 I doubt the patient has underlying Shuqualak's disease. We will proceed with the work-up [...] 11/25/2012 08/10/2013 Overview (11/25/2012): occ contact. uses lizbeth as directed by me. Asthma 12/20/2010 03/26/2022 Encounters Date Type Department Care Team Description 04/27/2025 Patient Outreach SEP Neurology [facility] [address] [place] [address] Samm Ledesma APRN Botox Injection (Due 06/02/25) 04/23/2025 Telephone [place] [address] Josie Almaraz, Clerical Staff Cancelled Appointment (For 04/29/25 with [facility] (6 month f/u)) 04/23/2025 Specialty Pharmacy [facility] [address] [place] [address] Annamarie Mark CPhT Pharmacy Migraine Medication Management (Qulipta) 04/09/2025 2:46 PM EDT - 04/09/2025 11:59 PM EDT Hospital Encounter [facility] [address] [place] [address] Adryan Rowan MD Intraductal carcinoma in situ of right breast Discharge Disposition: Home or Self Care 04/09/2025 Telephone [facility] [place] [address] Adryan Rowan MD Information Only (MRI order ) 04/02/2025 Telephone [facility] [place] [address] Tacho Echavarria MD Schedule Appointment (Call from Dr. Rowan's office to schedule MRI ) 03/30/2025 Specialty Pharmacy [facility] [address] [place], [place] [id number] Charlotte Martino [facility] Pharm[facility] Migraine Medication Management (Qulipta/Nurtec) 03/24/2025 1:33 PM EDT - 03/24/2025 11:59 PM EDT Hospital Encounter [facility] [place] [address] Tacho Echavarria MD Invasive ductal carcinoma of [...] EDT Hospital Encounter [place] [address] Tacho Echavarria MD Invasive ductal carcinoma of breast, female, right (HCC) (Primary Dx) Discharge Disposition: Home or Self Care 03/24/2025 Telephone [facility] [place], [place] [phone] Tacho Echavarria MD 03/23/2025 Social Work [facility] Cancer Care [facility] 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); Intraductal carcinoma in situ of right breast Discharge Disposition: Home or Self Care 03/10/2025 1:30 PM EDT Procedure visit [facility] [place] [id number] [facility] [address] [place] [address] Krissy Rhodes APRN Chronic migraine without aura, intractable, with status migrainosus (Primary Dx) Discharge Disposition: Home or Self Care 03/09/2025 Telephone [facility] [place], [place] [phone] Tacho Echavarria MD 03/04/2025 Orders Only [facility] [place], [place] [phone] Tacho Echavarria MD Invasive ductal carcinoma of breast, female, right (HCC) (Primary Dx) 03/04/2025 Telephone [facility] [address] [place] [address] Linda Osborne MD Medication Refill 03/02/2025 Telephone [facility] [address] [facility] [address] [place], [place] [phone] Arlyn Schmidt MD Paperwork/forms (paperwork received from [facility]) 02/26/2025 Specialty Pharmacy [facility] [address] [place] [address] Charlotte Martino, [facility] Pharm[facility] Migraine Medication Management (Qulipta/Nurtec) 02/25/2025 Specialty Pharmacy [facility] [address] [place] [address] Annette Renee [facility] Pharm[facility] Oncology Management (Abemaciclib) 02/15/2025 Telephone [facility] [place] [address] Tacho Echavarria MD 02/12/2025 Telephone [facility] [place] [phone] Eez Rowland MD Follow-up (Updated form, loan deferment form ) 02/10/2025 10:30 AM EDT Office Visit [facility] Spine [place] [phone] Sin Tran MD Chronic pain syndrome (Primary Dx); Post laminectomy syndrome 02/10/2025 Patient Outreach [facility] [place] [phone] Tacho Echavarria MD Oncology Nurse Navigation 02/10/2025 Orders Only [place] [address] Shilpa Cline, RAUL 02/08/2025 Refill [facility] [place] [phone] Tacho Echavarria MD Medication Refill 02/05/2025 Telephone [facility] [place] [phone] Tacho Echavarria MD Symptom Call (lightheaded / headache ) 02/05/2025 Telephone [place] [address] Narda Vickers, Clerical Staff Integrative Oncology Referral 02/05/2025 Telephone [facility] [address] [place] [address] Chetna Cedeno MD Other (BW) 02/04/2025 2:03 PM EDT - 02/04/2025 11:59 PM EDT Hospital Encounter [facility] [place] [address] Tacho Echavarria MD Invasive ductal carcinoma of breast, female, right (HCC) (Primary Dx); Chemotherapy follow-up examination; Encounter for monitoring aromatase inhibitor therapy; Vitamin D deficiency; Port-A-Cath in place; Reactive depression Discharge Disposition: Home or Self Care 02/04/2025 1:48 PM EDT - 02/04/2025 2:02 PM EDT Hospital Encounter [place] [address] Tacho Echavarria MD Invasive ductal carcinoma of breast, female, right (HCC) (Primary Dx) Discharge Disposition: Home or Self Care 02/04/2025 11:00 AM EDT - 02/04/2025 1:47 PM EDT Hospital Encounter [facility] [place] [address] Tacho Echavarria MD Mosko, Mallory, PA-C Invasive ductal carcinoma of breast, female, right (HCC) (Primary Dx); Encounter for monitoring aromatase inhibitor therapy; Encounter for screening mammogram for breast cancer Discharge Disposition: Home or Self Care 02/04/2025 Social Work [facility] Cancer Care [facility] [place] [address] Annette Walker MSW 02/04/20[address] [facility] [place] [address] Aliya Harden Clerical Staff Appointment Needed 02/03/[address] [address] Sin Tran MD Other (Pain pump meds) 02/03/2025 Specialty Pharmacy [facility] [address] [place] [address] Anisa Lozoya, Tim Pharmacy Oncology Management (Abemaciclib) 02/02/2025 11:20 AM EDT Telemedicine [facility] [address] [place] [address] Samm Ledesma APRN Chronic migraine without aura, intractable, with status migrainosus (Primary Dx); Paresthesia; Invasive ductal carcinoma of breast, female, right (HCC); Pituitary lesion; Radicular syndrome of left leg Discharge Disposition: Home or Self Care 02/02/2025 Specialty Pharmacy [facility] [address] [place] [address] Kevin Chacon, PharmD Pharmacy Migraine Medication Management (Nurtec) 02/01/2025 Social Work [facility] Cancer Care [facility] [place] [address] Sonny Fleming MSW 02/01/2025 Telephone [facility] [place] [address] Tacho Echavarria MD Other (Currently inpatient at [facility] ) from Last 3 Months Immunizations Immunization Administration Dates Next Due Influenza High Dose 06/25/2024, 4(Deferred: Other - patient is getting vaccine at [facility]) Influenza Vaccine Quadrivalent PF 03/27/2023,01/2015 Influenza Vaccine, [...] davis dilation; Surgeon: Stone Cronin MD; Location: [facility] ENDOSCOPY; Service: Endoscopy GASTRIC BYPASS SURGERY 05/01/2017 Abdomen/N/A LAPAROSCOPIC SLEEVE GASTRECTOMY ; Surgeon: Marcus Perez MD; Location: [facility] MAIN OR; Service: General IR 2 [...] Surgeon: Munir Hilton MD; Location: [facility] MAIN OR; Service: Pain Management Medical devices from this surgery are in the Medical Devices section. SPINE SURGERY 01/04/2021 N/A PAIN PUMP PERMANENT IMPLANT; Surgeon: Munir Hilton MD; Location: [facility] MAIN OR; Service: Pain Management Medical [...] radical mastectomy; Surgeon: Matt Ulrich MD; Location: [facility] MA[facility]; Service: General Medical History Medical [...] Recorded In the past 12 months has [employer] electric, gas, oil, or water [employer] threatened to shut off services in your home? No 07/07/2024 Social Connection and Isolation Panel Answer Date Recorded In a typical week, how many times do you talk on the phone with family, friends, or neighbors? Once a week 11/07/19 How often do you get togethe r with friends or relatives? Once a week 11/07/2023 How often do you attend [facility] or shinto services? 1 to 4 times [...] 5 07/07/2024 [facility] [place] of Occupat ional [facility] - Occupational Stress Questionnaire Answer Date [...] in a half-way (including now)? No 11/07/2023 [facility] IP Transportation Answer D ate Recorded In [...] Description 05/19/2025 2:15 PM EST Office Visit [facility] [place] [address] [place] [address] [address] [place] [address] Sin Tran MD [address] [place] [phone] 06/08/2025 12:45 PM EST Procedure visit [facility] [address] [facility] [address] [place] [phone] Samm Ledesma APRN [address] [facility] [address] [place] [address] 08/12/2025 10:40 AM EST Appointment [facility] Women's Well[facility] [place] [address] Matt Ulrich MD [address] [place] [address] [address] [place] [address] Health Maintenance Due Date Last Done Comments [...] Julio MA Medical Devices Implanted Type Area Chipping Machine Operator Device Identifier Shelf Expiration Date Model / Serial / Lot Kit Acc .133in Injex Didi Baso4 Biwing Flxb Rem Tl Preld - [id number] Implanted:Qty: 1 on 02/24/2020 by Munir Hilton MD at [facility] N/A: Back [employer]:NEURO 10/28/2023 [id number] / / [id number] Neurostimulator Rechar Adapt-Stim Sure Scan Intellis - [id number] Implanted:Qty: 1 on 02/24/2020 by Munir Hilton MD at [facility] N/A: Back [employer]:NEURO 12/19/2020 [id number] / [id number] / Kit Lead Percutaneous Mri Surescan Vectris 1x8 60cm - [id number] Implanted:Qty: 1 on 02/24/2020 by Munir Hilton MD at [facility] N/A: Back [employer]:NEURO 09/09/2023 [id number] / / [id number] Kit Lead Percutaneous Mri Surescan Vectris 1x8 60cm - [id number] Implanted:Qty: 1 on 02/24/2020 by Munir Hilton MD at [facility] N/A: Back [employer]:NEURO 10/08/2023 [id number] / / [id number] Device Suturing Mechanical Fixate Tissue Band - [id number] Implanted:Qty: 1 on 02/24/2020 by Munir Hilton MD at [facility] N/A: Back [employer]:NEUROMODULA TION 02/03/2024 FB-101-01 / / [id number] Device Suturing Mechanical Fixate Tissue Band - [id number] Implanted:Qty: 1 on 02/24/2020 by Munir Hilton MD at [facility] N/A: Back [employer]:NEUROMODULA TION 02/03/2024 FB-101- / / [id number] Envelope Absorbable Tyrx Polyarylate Medium 2.7in X 2.5in - [id number] Implanted:Qty: 1 on 02/24/2020 by Munir Hilton MD at [facility] N/A: Back [employer]:NEURO 12/03/2020 [id number] / / [id number] Device Sut Fixate Anchr Ld Tiss Bnd [id number] - [id number] Implanted:Qty: 1 on 01/04/2021 by Munir Hilton MD at [facility] N/A: Back [employer]:NEUROMODULA TION [id number] 10/25/2024 FB-101- / / [id number] Cath It 1-Pc 114cm 86cm Didi 4-Lyr Sut-Ls Physician Liaison Conn Lng Spin - [id number] Implanted:Qty: 1 on 01/04/2021 by Munir Hilton MD at [facility] N/A: Back [employer]:NEURO 12/10/2022 [id number] / / [id number] Pump It 2.5mm 6k409ms Flxb Synchromed Ii Rsvr Bk - [id number] Implanted:Qty: 1 on 01/04/2021 by Munir Hilton MD at [facility] N/A: Back [employer]:NEURO 01/02/2022 8637-20 / [id number] H / Port Infs 8fr Sarah 1.6x2.6mm Xcela Pwr Inj Lpro Ti Pu-11/29/2023 Implanted:Qty: 1 on 11/29/2023 by Joselito Goodwin MD [facility] [id number] / / [id number] Procedures Procedure Name Priority Date/Time Associated Diagnosis Comments MRI BRAIN ATTN PITUITARY W WO CONTRAST STAT 04/09/2025 3:35 PM EDT Intraductal carcinoma in situ of right breast COMPREHENSIVE METABOLIC PANEL STAT 03/24/2025 1:29 PM [...] AM EDT VITAMIN B12/ FOLIC ACID Routine 02/04/2025 2:03 PM EDT Invasive ductal carcinoma of breast, female, right (HCC) CBC WITH DIFF STAT 02/04/2025 2:03 PM EDT Invasive ductal carcinoma of breast, female, right (HCC) IRON+TIBC Routine 02/04/2025 2:02 PM EDT Invasive ductal carcinoma of breast, female, right (HCC) COMPREHENSIVE METABOLIC PANEL STAT 02/04/2025 2:02 PM EDT Invasive ductal carcinoma of breast, female, right (HCC) MM MAMMO DIGITAL STEPHANE DIAGN RIGHT Routine 01/27/2024 11:20 AM EDT Invasive ductal carcinoma of breast, female, right (HCC) GMED COLONOSCOPY Routine 07/12/2015 2:30 PM EST from Last 3 Months or Most Recently Relevant to Health Maintenance Results * MRI BRAIN ATTN PITUITARY W [...] HISTORY: D05.11-Intraductal carcinoma in situ of right espfue-RGF-95-CM. COMPARISON: CT brain 01/12/2024, MRI 01/06/2024 and dating back to 05/01/2018. PROCEDURE COMMENTS: Multiplanar sequences obtained with and without Gadolinium contrast as recorded in [employer].. Sequences include thin section precontrast and dynamic [...] HISTORY: D05.11-Intraductal carcinoma in situ of right hmummk-MGX-09-CM. COMPARISON: CT brain 01/12/2024, MRI 01/06/2024 and dating back to05/01/2018. PROCEDURE COMMENTS: Multiplanar sequences obtained with and withoutGadolinium contrast as recorded in [employer].. Sequences include thin section precontrastand dynamic post contrast coronal T1 images through the sella. FINDINGS: Redemonstrated is a lesion along the superior aspect of the pituitarygland measuring approximately 9 mm across with a crescentic anterior M2hqysldvvczyc component. This lesion otherwise appears filled by [...] MD IMG MRI ORDERABLES Final Resul t * (ABNORMAL) CBC WITH DIFF (03/24/2025 1:29 PM EDT) Only the most recent of2 resultswithin the time period is included. WBC 3.9 3.7 - 10.3 x10(3)/mc L 03/24/2025 1:40 PM EDT [facility] RBC 2.92(L) 3.90 - 5.20 x10(6)/mc L 03/24/2025 1:40 PM EDT [facility] Hgb 9.7(L) 11.2 - 15.7 g/dL 03/24/2025 1:40 PM EDT [facility] Hct 28.2(L) 34.0 - 45.0 % 03/24/2025 1:40 PM EDT [facility] MCV 96.6 80.0 - 100.0 fL 03/24/2025 1:40 PM EDT [facility] MCH 33.2 26.0 - 34.0 pg 03/24/2025 1:40 PM EDT [facility] MCHC 34.4 30.7 - 35.5 g/dL 03/24/2025 1:40 PM EDT [facility] RDW 13.7 <=14.9 % 03/24/2025 1:40 PM EDT [facility] Platelet 197 155 - 369 x10(3)/mc L 03/24/2025 1:40 PM EDT [facility] MPV 8.9 8.8 - 12.5 fL 03/24/2025 1:40 PM EDT [facility] Neut # Prelim 2.3 1.6 - 6.1 x10(3)/mc L 03/24/2025 1:40 PM EDT [facility] Comment:Preliminary automate d absolute neutrophil count. Value may change if manual differential is indicated. Neut Percent 60.4 % 03/24/2025 1:40 PM EDT [facility] Comment:Neutrophils equals s egs plus bands Imm Gran% 0.3 % 03/24/2025 1:40 PM EDT [facility] Comment:Automated count of m etamyelocytes, myelocytes and promyelocytes. Lymph Percent 28.2 % 03/24/2025 1:40 PM EDT [facility] Mohave Percent 8.5 % 03/24/2025 1:40 PM EDT [facility] Eos Percent 1.3 % 03/24/2025 1:40 PM EDT [facility] Baso Percent 1.3 % 03/24/2025 1:40 PM EDT [facility] Neut # 2.3 1.6 - 6.1 x10(3)/mc L 03/24/2025 1:40 PM EDT [facility] Comment:Neutrophils equals s egs plus bands IMMGRAN# 0.0 0.0 - 0.1 x10(3)/mc L 03/24/2025 1:40 PM EDT [facility] Comment:Automated count of m etamyelocytes, myelocytes and promyelocytes. An absolute IG <0.1 is reported as 0.0. Lymph # 1.1(L) 1.2 - 3.9 x10(3)/mc L 03/24/2025 1:40 PM EDT [facility] [place]ave # 0.3 0.3 - 0.9 x10(3)/mc L 03/24/2025 1:40 PM EDT [facility] Eos# 0.1 0.0 - 0.5 x10(3)/mc L 03/24/2025 1:40 PM EDT [facility] Baso # 0.1 0.0 - 0.1 x10(3)/mc L 03/24/2025 1:40 PM EDT [facility] Blood VENOUS STRUCTURE / Unknown Port / Unknown 03/24/2025 1:29 PM EDT 03/24/2025 1:35 PM EDT Tacho Echavarria MD HEMATOLOGY ORDERABLES Final Result [facility] [address] [place] [id number] * (ABNORMAL) COMPREHENSIVE METABOLIC PANEL (03/24/2025 1:29 PM EDT) Only the most recent of2 resultswithin the time period is included. Sodium 140 136 - 145 mmol/L 03/24/2025 1:58 PM EDT [facility] Potassium 3.8 3.5 - 5.0 mmol/L 03/24/2025 1:58 PM EDT [facility] Chloride 104 98 - 107 mmol/L 03/24/2025 1:58 PM EDT [facility] Total CO2 23 22 - 29 mmol/L 03/24/2025 1:58 PM EDT [facility] Anion Gap 13 7 - 16 mmol/L 03/24/2025 1:58 PM EDT [facility] Calcium 9.1 8.6 - 10.4 mg/dL 03/24/2025 1:58 PM EDT [facility] Glucose Lvl 114(H) 70 - 99 mg/dL 03/24/2025 1:58 PM EDT [facility] BUN 14 6 - 20 mg/dL 03/24/2025 1:58 PM EDT [facility] Creatinine 0.81 0.51 - 1.30 mg/dL 03/24/2025 1:58 PM EDT [facility] Albumin 3.9 3.5 - 5.2 gm/dL 03/24/2025 1:58 PM EDT [facility] Total Protein 6.4 6.4 - 8.3 gm/dL 03/24/2025 1:58 PM EDT [facility] Bili Total 0.4 0.2 - 1.3 mg/dL 03/24/2025 1:58 PM EDT [facility] ALT 8 <=41 U/L 03/24/2025 1:58 PM EDT [facility] AST 14 <=40 U/L 03/24/2025 1:58 PM EDT [facility] Alk Phos 146(H) 36 - 123 U/L 03/24/2025 1:58 PM EDT [facility] eGFR (CKD-EPIcr 2020) 84 >=60 mL/min/1.7 3 m2 03/24/2025 1:58 PM EDT [facility] Comment:Estimated GFR was ca lculated using the CKD-EPIcr (2020) equation refit without race. The equation is recommended by the National Kidney Foundation - [place] [employer] Nephrology Task Force. Blood VENOUS STRUCTURE / Unknown Port / Unknown 03/24/2025 1:29 PM EDT 03/24/2025 1:36 PM EDT Tacho Echavarria MD CHEMISTRY ORDERABLES Final Result [facility] [address] [place] [address] * PET CT SKULL BASE TO MID [...] (HCC)-ICD-10-CM D05.11-Intraductal carcinoma in situ of right kidgck-JWB-19-CM COMPARISON: PET/CT 11/09/2024. PROCEDURE COMMENTS: 14.7 mCi [...] (HCC)-ICD-10-CM D05.11-Intraductal carcinoma in situ of right zhflbw-JQT-22-CM COMPARISON: PET/CT 11/09/2024. PROCEDURE COMMENTS: 14.7 mCi [...] GLUCOSE METER POC (03/18/2025 7:23 AM EDT) Glucose Meter POC 101(H) 70 - 100 mg/dL 03/18/2025 7:26 AM EDT [facility] Sample Type Capillary 03/18/2025 7:26 AM EDT [facility] Patient Status Non-Critical Patient 03/18/2025 7:26 AM EDT [facility] Blood BLOOD SPECIMEN / Unknown 03/18/2025 7:23 AM EDT 03/18/2025 7:26 AM EDT Adryan Rowan MD POINT OF CARE TEST ORDERABLES Final Result [facility] [address] [place] [id number] * VITAMIN B12/ FOLIC ACID (02/04/2025 2:03 PM EDT) Vitamin B12 271 232 - 1,245 pg/mL 02/04/2025 4:31 PM EDT [facility] [employer] Folate 6.16 >=4.80 ng/mL 02/04/2025 4:31 PM EDT [facility] Blood VENOUS BLOOD / Unknown Venipuncture / Unknown 02/04/2025 2:03 PM EDT 02/04/2025 2:03 PM EDT Narrative [facility] - 02/04/2025 4:31 PM EDT Ingestion of haroon doses of biotin (>5 mg/day) taken within 8 hours of drawing blood sample can interfere with this immunoassay test. Tacho Echavarria MD CHEMISTRY ORDERABLES Final Result Performing Organization Address [facility]/ZIP Co de Phone Number [facility] [employer] [address] [facility], [address] [place] [id number] * IRON+TIBC (02/04/2025 2:02 PM EDT) Iron 82 30 - 160 mcg/dL 02/04/2025 2:59 PM EDT [facility] Transferrin 279 200 - 360 mg/dL 02/04/2025 2:59 PM EDT [facility] [employer] Saturation 21 20 - 50 % 02/04/2025 2:59 PM EDT [facility] TIBC 391 250 - 400 mcg/dL 02/04/2025 2:59 PM EDT [facility] Blood VENOUS BLOOD / Unknown Venipuncture / Unknown 02/04/2025 2:02 PM EDT 02/04/2025 2:02 PM EDT Tacho Echavarria MD CHEMISTRY ORDERABLES Final Result [facility] [address] [place] [address] [place] [address] [facility] [employer] [facility] [address] [facility], [place] [address] * MM MAMMO DIGITAL STEPHANE DIAGN RIGHT (01/27/2024 11:20 AM EDT) Anatomical Region Laterality Modality Breast Right Mammography 01/27/2024 12:5 7 PM EDT Impressions 01/27/2024 12:57 PM EDT Incomplete-need additional imaging evaluation ([id number]) ~ RECOMMENDATION: Ultrasound of the right breast. [...] sinceprior. ~ IMPRESSION: Incomplete-need additional imaging evaluation ([id number]-1) ~ RECOMMENDATION: Ultrasound of the right breast. [...] PM EST) 07/12/2015 2:30 PM EST Impressions [facility] - 07/12/2015 3:30 [...] MD GI PROCEDURE ORDERABLES Doris mcmahon Result [facility] [facility] [address] [place] [address] from Last 3 Months or Most Recently Relevant to Health Maintenance Insurance MDR [facility] [place] [id number] MDR MDR Advance Directives For more information, please contact: [phone] * Full Code (Latest Code Status on File) Date Activated Date Inactivated Comments 05/01/2017 2:57 PM 05/03/2017 5:30 PM Care Teams Preparation Plant Supervisor Relationship Specialty Start Date End Date Ayush Marrero MD [address] [place], [place] [id number] PCP - General Family Medicine 03/09/25 Arlyn Schmidt MD [address] [place] [address] Consulting Physician Internal Medicine-Endocrinology, Diabetes & Metabolism 11/28/20 Tacho Echavarria MD 1 [place] [address] Internal Medicine-Medical Oncology 11/12/23 Matt Ulrich MD 1 [place] [address] Surgery-Surgical Oncology 12/04/23 Eze Brock Pastoral Care 12/13/23 Annette Walker, ARACELI Receiving Specialist 05/13/24 Batool Celis MD 1 [place] [address] Radiation Oncologist Radiology-Radiation Oncology 06/08/24
--- OUTSIDE RECORDS SUMMARY | 2025-05-04 11:54 | XMS_ITS | Encounter Summary ---
Author Organization [place] [address] Care Team Providers Care Practical Nursing Teacher Name Role Phone Arlyn Schmidt MD Unavailable [phone] Tacho Echavarria MD Unavailable [phone] Matt Ulrich MD Unavailable [phone] Eze Brock Unavailable Annette Walker DEMOLITION HAMMER OPERATOR Unavailable [phone] Batool Celis MD Unavailable [phone] Ayush Marrero MD Primary Care Provider [phone] Encounter Details Date Type Department Care Team (Late st Contact Info) Description 03/22/2025 Telephone Cancer Care Medical Oncology [place], [place] [id number] Tacho Echavarria MD [address] [place] [address] [id number] Social History Tobacco Use Types Packs/Day Years [...] the past 12 months has th e [employer], gas, oil, or water [employer] threatened to shut off services in your [...] PHQ-2 Total Score 5 07/07/2024 [facility] of Occupat ional Health - Occupational Stress [...] a assisted (including now)? No 11/07/2023 [facility] [...] that she is seeing Dr. Rowan at [facility] in [facility] and he is managing her care. Teams message sent to RN to ask if follow up is still needed. Scheduled MD follow up on 03/24 at 1:40 with labs prior. * Telephone Encounter - Linda Sewell CNA - 03/22/2025 10:10 AM EDT Called patient but no VM set up, will try again this afternoon, Also sent Yowza message. * Telephone Encounter - Rosana Gupta [...] Description 05/19/2025 2:15 PM EST Office Visit [place] [id number] [facility] [address] [place] [address] Sin Tran MD [address] [place] [address] 06/08/2025 12:45 PM EST Procedure visit [facility] [address] [facility] [address] [place] [address] Samm Ledesma, ENROBING MACHINE FEEDER [address] [facility] [facility] [address] [place], [place] [id number] 08/12/2025 10:40 AM EST Appointment [facility] Women's Wellness [place] One [facility] [place] [address] Matt Ulrich MD [address] [place] [address] [address] [place] [address] documented as of this encounter Goals Goal Patient Goal Type Associated Problems Recent Progress Patient-Stated? Author Blood Pressure < 140/90 Blood Pressure 123/84(03/24 1:35 PM EDT) No Chetna Cedeno MD Breast [facility] Breast Health On track(2024 11:27 AM EDT) No Jasmin Porter, RAUL Note: Patient acknowledges understanding of new diagnosis, plan of care, available resources and how to contact Nurse Navigator with any future questions or concerns. Breast [facility] Breast Health Not on track(2024 11:27 AM EDT) No Jasmin Porter, RAUL Note: Patient will be compliant with monthly SBE and is aware of who to contact for any unusual or concerning findings. Breast [facility] Breast Health On track(2024 11:27 AM [...] documented as of this encounter Care Teams Practical Nursing Teacher Relationship Specialty Start Date End Date Ayush Marrero MD [address] [place], [place] [address] PCP - General Family Medicine 03/09/25 Arlyn Schmidt MD [address] [place], [place] [id number] Consulting Physician Internal Medicine-Endocrinology, Diabetes & Metabolism 11/28/20 Tacho Echavarria MD 1 [place] [address] Internal Medicine-Medical Oncology 11/12/23 Matt Ulrich MD 1 [place], [place] [address] Surgery-Surgical Oncology 12/04/23 Eze Brock Pastoral Care 12/13/23 Annette Walker, ARACELI Film Booker 05/13/24 Batool Celis MD 1 [facility] [place] [address] Radiation Oncologist Radiology-Radiation Oncology 06/08/24 documented as of this encounter
--- OUTSIDE RECORDS SUMMARY | 2025-05-04 11:54 | XMS_ITS | Encounter Summary ---
Author Organization [place] [address] Care Team Providers Care Plate Furnace Operator Name Role Phone Arlyn Schmidt MD Unavailable [phone] Tacho Echavarria MD Unavailable [phone] Matt Ulrich MD Unavailable [phone] Eze Brock Unavailable Annette Walker MICROELECTRONICS ENGINEER Unavailable [phone] Batool Celis MD Unavailable [phone] Ayush Marrero MD Primary Care Provider [phone] Reason for Visit * Reason Comments Oncology Nurse Navigation Encounter Details Date Type Department Care Team (Late st Contact Info) Description 03/23/2025 Patient Outreach [place] [address] Shilpa Cline, RN Oncology Nurse [...] th e electric, gas, oil, or water [employer] threatened to shut off services in [...] PHQ-2 Total Score 5 07/07/2024 [facility] of Occupat ional Health - Occupational Stress [...] senior care (including now)? No 11/07/2023 [facility] IP [...] documented in this encounter Progress Notes * hSilpa Cline RN - 03/23/2025 3:07 PM EDT Navigation Assessment Chief complaint: Chief Complaint Patient presents with Oncology Nurse Navigation Current Status: Active Diagnosis: Breast Cancer - HR(+) Her2(-) Visit Type: Telephone - incoming Reason: Advice Only Treatment Intervention: Patient had some questions regarding her appointment with Dr. Echavarria tomorrow. Questions reviewed. She is aware of the pet scan results. She has been seeing Dr. Adryan Rowan at [facility] (medical oncology) Emotional Anxiety;Sadness;Stress;Gratitude;Nervousness Intervention: Patient is anxious to learn the plan. She knows she needs more treatment and is saddened and disappoointed. NN offered emotional support and active listening. NN will notify Annette in social worker palliative care and Eze in patoral care for additional support. Follow-up Plan 03/24 Dr. Echavarria Onc NN will continue to follow patient. documented in this encounter Plan of Treatment Upcoming Encounters Date Type Department Care Team (Late st Contact Info) Description 05/19/2025 2:15 PM EST Office Visit [facility] [place] [address] [facility] [address] [place] [address] Sin Tran MD [address] [place] [address] 06/08/2025 12:45 PM EST Procedure visit [facility] [address] [facility] [address] [place] [address] Samm Ledesma, RECEIVING SUPERVISOR [address] [facility] [address] [place] [address] 08/12/2025 10:40 AM EST Appointment [facility] Women's Wellness [place] One [facility] [place] [address] Matt Ulrich MD [address] [place] [address] DR MUSA Hameed [facility] [address] documented as of this encounter Goals Goal [...] documented as of this encounter Care Teams Plate Furnace Operator Relationship Specialty Start Date End Date Ayush Marrero MD [address] [place] [address] PCP - General Family Medicine 03/09/25 Arlyn Schmidt MD [address] [place] [address] Consulting Physician Internal Medicine-Endocrinology, Diabetes & Metabolism 11/28/20 Tacho Echavarria MD 1 [place] [address] Internal Medicine-Medical Oncology 11/12/23 Matt Ulrich MD 1 [place] [address] Surgery-Surgical Oncology 12/04/23 Eze Brock Pastoral Care 12/13/23 Annette Walker, MICROELECTRONICS ENGINEER Scooter Mechanic 05/13/24 Batool Celis MD 1 [facility] [place] [address] Radiation Oncologist Radiology-Radiation Oncology 06/08/24 documented as of this encounter
--- OUTSIDE RECORDS SUMMARY | 2025-05-04 11:56 | XMS_ITS | Encounter Summary ---
Author Organization [place] [address] Care Team Providers Care Sales Advisory Manager Name Role Phone Chetna Cedeno MD Primary Care Provider [phone] Arlyn Schmidt MD Unavailable [phone] Tacho Echavarria MD Unavailable [phone] Matt Ulrich MD Unavailable [phone] Eze Brock Unavailable Cheryl Nair RN Unavailable [phone] Annette Walker HOTEL DINING ROOM CASHIER Unavailable [phone] Batool Celis MD Unavailable [phone] Ayush Marrero MD Primary Care Provider [phone] Encounter Details Date Type Department Care Team (Late st Contact Info) Description 10/27/2024 Orders Only [facility] Physical Therapy [place] [address] [place] [address] [address] [place] [address] Shaunna Workman PT Social History [...] in a prison (including now)? No 11/07/[address] [facility] IP Transportation Answer [...] 10:36 AM EDT Rodolfo Jc RN * [place] Suicide Severity Rating Scale (Q shift for [...] Description 05/19/2025 2:15 PM EST Office Visit [address] [place] [address] Sin Tran MD [address] [place] [address] 06/08/2025 12:45 PM EST Procedure visit [facility] [address] [place] [address] Samm Ledesma, HARVEST WORKER FIELD CROP [address] [facility] [address] [place] [address] 08/12/2025 10:40 AM EST Appointment [facility] Women's Wellness [place] One [facility] [place] [address] Matt Ulrich MD [address] [place] [address] DR [address] [place] [address] documented as of this encounter Goals Goal [...] as of this encounter Care Teams Sales Advisory Manager Relationship Specialty [place] [address] [place] [address] PCP - General 06/21/10 03/08/25 Ayush Marrero MD [address] [place], [place] [address] PCP - General Family Medicine 03/09/25 Arlyn Schmidt MD [address] [place] [address] Consulting Physician Internal Medicine-Endocrinology , Diabetes & Metabolism 11/28/20 Tacho Echavarria MD 1 [place] [address] Internal Medicine-Medical Oncology 11/12/23 Matt Ulrich MD 1 [place] [address] Surgery-Surgical Oncology 12/04/23 Eze Brock Pastoral Care 12/13/23 Cheryl Nair, RN Oncology Nurse Navigator 03/25/2412/13 nAnette Walker MSW Tissue Packer 05/13/24 Batool Celis MD 1 [facility] [place] [address] Radiation Oncologist Radiology-Radiation Oncology 06/08/24 documented as of this encounter
--- OUTSIDE RECORDS SUMMARY | 2025-05-04 11:56 | XMS_ITS | Encounter Summary ---
Author Organization [place] [address] Care Team Providers Care Residence Manager Name Role Phone Chetna Cedeno MD Primary Care Provider [phone] Arlyn Schmidt MD Unavailable [phone] Tacho Echavarria MD Unavailable [phone] Matt Ulrich MD Unavailable [phone] Eze Brock Unavailable Annette Walker SENIOR WRITER Unavailable [phone] Batool Celis MD Unavailable [phone] Ayush Marrero MD Primary Care Provider [phone] Reason for Visit * Reason Comments Pharmacy Oncology Management Abemaciclib Encounter Details Date Type Department Care Team (Latest Contact Info) Description 02/25/2025 Specialty Pharmacy [facility] [address] [place] [address] Annette Renee CPhT Pharmacy Oncology [...] Total Score 5 07/07/2024 [facility] [place] of Occupat ional Health - Occupational Stress [...] any time in the past 12 m [facility], were you homeless or living in a penitentiary (including now)? No 11/07/2023 [facility] IP Transportation Answer [...] Stover RPH - 02/25/2025 10:28 AM EDT [facility] - Care Plan and Refill Review Refill questions and refill history verified. Last assessment 12/25/24. No reassessment needed at this time. Medhat Stover RPH Specialty Pharmacist * Madalyn Rivas RPH - 02/25/2025 10:28 AM EDT [facility] Per chart review patient will [...] Description 05/19/2025 2:15 PM EST Office Visit [place] [address] [place] [address] [place] [address] [place] [address] 06/08/2025 12:45 PM EST Procedure visit [facility] [address] [facility] [address] [place] [address] Samm Ledesma, CHIEF ACCOUNTANT [address] [facility] [address] [place] [address] 08/12/2025 10:40 AM EST Appointment [facility] Women's Wellness [place] One [facility] [place] [address] Matt Ulrich MD [address] [place] [address] [place] [address] documented as of this encounter Goals Goal Patient Goal Type Associated Problems Recent Progress Patient-Stated? Author Blood Pressure < 140/90 Blood Pressure 123/84(03/24 1:35 PM EDT) No Chetna Cedeno MD Breast [facility] Breast Health On [...] documented as of this encounter Care Teams Residence Manager Relationship Specialty [place] [address] [place] [address] PCP - General 06/21/10 03/08/25 Ayush Marrero MD [address] [place] [address] PCP - General Family Medicine 03/09/25 Arlyn Schmidt MD [address] [place] [address] Consulting Physician Internal Medicine-Endocrinology, Diabetes & Metabolism 11/28/20 Tacho Echavarria MD 1 [place], [place] [address] Internal Medicine-Medical Oncology 11/12/23 Matt Ulrich MD 1 [place], [place] [address] Surgery-Surgical Oncology 12/04/23 Eze Brock Pastoral Care 12/13/23 Annette Walker, ARACELI Obstetrics Nurse 05/13/24 Batool Celis MD 1 [facility] [place] [address] Radiation Oncologist Radiology-Radiation Oncology 06/08/24 documented as of this encounter
--- OUTSIDE RECORDS SUMMARY | 2025-05-04 11:56 | XMS_ITS | Encounter Summary ---
Author Organization [place] [address] Care Team Providers Care Freight Car Cleaner Name Role Phone Chetna Cedeno MD Primary Care Provider [phone] Arlyn Schmidt MD Unavailable [phone] Tacho Echavarria MD Unavailable [phone] Matt Ulrich MD Unavailable [phone] Eze Brock Unavailable Cheryl Nair RN Unavailable [phone] Annette Walker RECREATION INSTRUCTOR Unavailable [phone] Batool Celis MD Unavailable [phone] Ayush Marrero MD Primary Care Provider [phone] Encounter Details Date Type Department Care Team (Late st Contact Info) Description 10/26/2024 Orders Only [facility] Physical Therapy [place] [address] [place] [address] [address] [place] [address] Shaunna Workman PT Social History [...] detention (including now)? No 11/07/2023 [facility] IP Transportation Answer D [...] Assessment Author No Risk 11/22/2024 10:36 AM EDRodolfo Albert RN * [place] Suicide Severity Rating Scale (Q shift for moderate and high) Question Answer Date of Assessment Author 1. In the past month, have y ou wished you were or wished you could go to sleep and not wake up? 0 11/22/2024 10:36 AM EDRodolfo Albert RN 2. In the past month, have y ou actually had any thoughts of killing yourself? (If no, skip to question 6) 0 11/22/2024 10:36 AM Rodolfo Pickard RN 6. Have you ever done anythi ng, started to do anything, or prepared to do anything to end your life? 0 11/22/2024 10:36 AM EDRodolfo Albert RN documented as of this encounter Mental [...] Description 05/19/2025 2:15 PM EST Office Visit [place] [address] [place] [address] Sin Tran MD [address] [place] [address] 06/08/2025 12:45 PM EST Procedure visit [facility] [address] [facility] [address] [place] [address] Samm Ledesma APRN [address] [facility] [address] [place] [address] 08/12/2025 10:40 AM EST Appointment [facility] Women's Wellness [place] One [facility] [place] [address] Matt Ulrich MD [address] [place] [address] [place] [address] documented as of this encounter Goals Goal [...] documented as of this encounter Care Teams Freight Car Cleaner Relationship Specialty [place] [address] [place] [address] PCP - General 06/21/10 03/08/25 Ayush Marrero MD [address] [place] [address] PCP - General Family Medicine 03/09/25 Arlyn Schmidt MD [address] [place] [address] Consulting Physician Internal Medicine-Endocrinology , Diabetes & Metabolism 11/28/20 Tacho Echavarria MD 1 [place] [address] Internal Medicine-Medical Oncology 11/12/23 Matt Ulrich MD 1 [place] [address] Surgery-Surgical Oncology 12/04/23 Eze Brock Pastoral Care 12/13/23 Cheryl Nair, RN Oncology Nurse Navigator 03/25/2412/13 Annette Walker, ARACELI Abattoir Supervisor 05/13/24 Batool Celis MD 1 [facility] [place] [address] Radiation Oncologist Radiology-Radiation Oncology 06/08/24 documented as of this encounter
--- OUTSIDE RECORDS SUMMARY | 2025-05-04 11:56 | XMS_ITS | Encounter Summary ---
Author Organization [place] [address] Care Team Providers Care Animal Trapper Name Role Phone Kit Cedeno MD Primary Care Provider [phone] Arlyn Schmidt MD Unavailable [phone] Cheryl Nair RN Unavailable [phone] Tacho Echavarria MD Unavailable [phone] Matt Ulrich MD Unavailable [phone] Hilary Clemens RN Unavailable Unavaila Eze Caro Unavailable Shila Albrecht RN Unavailable Unavail able Cheyanne To RN Unavailable Unavailabl Rayna Wong RN Unavailable Unavailab Shilpa Olivarez RN Unavailable [phone] Tulio Duong RN Unavailable Unavailable Yaquelin Weaver RN Unavailable Unavailable Pam Wang RN Unavailable Unavailable Jazmín Nair RN Unavailable Unavailable Fidel Rainey RN Unavailable Unavailable Cheryl Nair RN Unavailable [phone] Ophelia Lala RN Unavailable Glo Lee RN Unavailable Unavailab Sanam Evans EMERGENCY GENERATOR MECHANIC Unavailable Unavailable Hilary Clemens RN Unavailable Unavaila Ruthy Clayton RN Unavailable Unavailable Rayna Partida RN Unavailable Unavailab Artur Nelson RN Unavailable Unavailable Annette Walker EMERGENCY GENERATOR MECHANIC Unavailable [phone] Emmie Crain RN Unavailable Unavailable Brigida Enriquez RN Unavailable Unavailable Fidel Rainey RN Unavailable Unavailable Batool Celis MD Unavailable [phone] Ayush Marrero MD Primary Care Provider [phone] Encounter Details Date Type Department Care Team (Late st Contact Info) Description 10/25/2023 Orders Only [facility] [address] [place] [address] Diane Ellis MD 1 [place] [address] Social History Tobacco Use Types [...] Description 05/19/2025 2:15 PM EST Office Visit [address] [place] [address] Sin Tran MD [address] [place] [address] 06/08/2025 12:45 PM EST Procedure visit [facility] [address] [facility] [address] [place] [address] Samm Ledesma APRN [address] [facility] 100 [place] [address] 08/12/2025 10:40 AM EST Appointment [facility] Women's Wellness [facility] [address] [place] [address] Matt Ulrich MD [address] [place] [address] [address] [place] [id number] documented as of this encounter Goals Goal [...] [facility] - 11/11/2023 2:42 PM EDT Requesting Provider: KIT Womack Specimen = [id number] us Diane Ellis MD PATHOLOGY ORDERABLES Final Resul t [facility] 1 [place] [address] documented in this encounter Visit Diagnoses Not on filedocumented in this encounter Additional Health Concerns Infection Onset Date Last Indicated Resolved Time COVID-19 09/04/2024 09/04/2024 09/24/2024 10:1 2 PM EDT documented as of this encounter Care Teams Animal Trapper Relationship Specialty [place] [address] [place] [address] PCP - General 06/21/10 03/08/25 Ayush Marrero MD [address] [place] [address] PCP - General Family Medicine 03/09/25 Arlyn Schmidt MD [address] [place] [address] Consulting Physician Internal Medicine-Endocrinolog y, Diabetes & Metabolism 11/28/20 Cheryl Nair, RN Oncology Nurse Navigator 10/29/2302/05 Tacho Echavarria MD 1 [place], [place] [id number] Internal Medicine-Medical Oncology 11/12/23 Matt Ulrich MD 1 [place] [address] Surgery-Surgical Oncology 12/04/23 Hilary Clemens, RN Registered [...] Nurse Infusion Therapy 02/27/24 02/27/24 Fidel Rainey, RAUL Registered Nurse Infusion Therapy 03/05/24 03/05/24 Cheryl Nair, RAUL Oncology Nurse Navigator 03/25/2412/13 Ophelia Lala, RAUL Registered Nurse Infusion Therapy 03/27/24 03/27/24 Glo Lee, RN Registered Nurse Infusion Therapy 04/03/24 04/03/24 Sanam Murray, EMERGENCY GENERATOR MECHANIC Rotary Rock Drilling Machine Operator 04/10/24 07/30/24 Hilary Clemens, RN Registered Nurse Infusion Therapy 04/21/24 04/21/24 Ruthy Walker RN Registered Nurse Infusion Therapy 04/24/24 04/24/24 Rayna [place], RN Registered Nurse Infusion Clinic 05/01/24 05/01/24 Artur Roberts RN Registered Nurse Infusion Therapy 05/07/24 05/07/24 Annette Walker, [facility] Rotary Rock Drilling Machine Operator 05/13/24 Emmie Crain, RN Registered Nurse Infusion Therapy 05/14/24 05/14/24 Brigida Enriquez, RN Registered Nurse Infusion Clinic 05/21/24 05/21/24 Fidel Rainey, RN Registered Nurse Infusion Therapy 05/28/24 05/28/24 Batool Celis MD 1 [facility] [place] [address] Radiation Oncologist Radiology-Radiation Oncology 06/08/24 documented as of this encounter
--- OUTSIDE RECORDS SUMMARY | 2025-05-04 11:56 | XMS_ITS | Encounter Summary ---
Author Organization [place] [address] Care Team Providers Care Car Pick Up Driver Name Role Phone Arlyn Schmidt MD Unavailable [phone] Tacho Echavarria MD Unavailable [phone] Matt Ulrich MD Unavailable [phone] Eze Brock Unavailable Annette Walker POWER SAW OPERATOR Unavailable [phone] Batool Celis MD Unavailable [phone] Ayush Marrero MD Primary Care Provider [phone] Reason for Visit * Reason Onset Date Comments Botox Injection 04/27/2025 Due 06/02/25 Encounter Details Date Type Department Care Team (Late st Contact Info) Description 04/27/2025 Patient Outreach [facility] [address] [place] [address] Samm Ledesma, MOVIE STAR [address] [facility] [place] [address] [place] [address] Botox Injection (Due 06/02/25) Social History Tobacco Use Types Packs/Day Years [...] Score 5 07/07/2024 [facility] - Occupational Stress Questionnaire Answer [...] in a retirement (including now)? No 11/07/2023 [facility] IP Transportation Answer D ate Recorded In [...] No 12/06/2022 2:08 PM EDT AaliyahdanyaMacarena hernández CCMA documented as of this encounter Mental Status * Because of a physical, mental or emotional condition, does this person have serious difficulty concentrating, remembering or making decisions? Answer Entry Date Author No 12/06/2022 2:08 PM EDT Macarena Marion CCMA documented in this encounter Miscellaneous Notes * Telephone Encounter - Zina Medina, Clerical Staff - 04/27/2025 4:26 PM EDT APPROVED: [id number] AUTH #: [id number] DATES OF APPROVAL: 03/10/2025-03/10/2026 UNITS APPROVED: 800 units/ 4 visits BUY & BILL Please use referral #[id number] for scheduling. documented in this encounter Plan of Treatment Upcoming Encounters Date Type Department Care Team (Late st Contact Info) Description 05/19/2025 2:15 PM EST Office Visit [address] [place] [address] Sin Tran MD [address] [place] [address] 06/08/2025 12:45 PM EST Procedure visit [facility] [address] [facility] [address] [place] [address] Samm Ledesma APRN [address] [facility] [address] [place] [address] 08/12/2025 10:40 AM EST Appointment [facility] [place] [address] Matt Ulrich MD [address] [facility] [address] [place] [address] documented as of this encounter Goals Goal [...] as of this encounter Care Teams Car Pick Up Driver Relationship Specialty Start Date End Date Ayush Marrero MD [address] [place] [address] PCP - General Family Medicine 03/09/25 Arlyn Shcmidt MD [address] [place] [address] Consulting Physician Internal Medicine-Endocrinology, Diabetes & Metabolism 11/28/20 Tacho Echavarria MD 1 [place] [address] Internal Medicine-Medical Oncology 11/12/23 Matt Ulrich MD 1 [place] [address] Surgery-Surgical Oncology 12/04/23 Eze Brock Pastoral Care 12/13/23 Annette Walker, POWER SAW OPERATOR Fountain Attendant 05/13/24 Batool Celis MD 1 [facility] [place] [address] Radiation Oncologist Radiology-Radiation Oncology 06/08/24 documented as of this encounter
--- OUTSIDE RECORDS SUMMARY | 2025-05-04 11:56 | XMS_ITS | Encounter Summary ---
Author Organization [place] [address] Care Team Providers Care Carpentry Professional Name Role Phone Kti Cedeno MD Primary Care Provider [phone] Arlyn Schmidt MD Unavailable [phone] Cheryl Nair RN Unavailable [phone] Tacho Echavarria MD Unavailable [phone] Matt Ulrich MD Unavailable [phone] Hilary Clemens RN Unavailable Unavaila Eze Caro Unavailable Shila Albrecht RN Unavailable Unavail able Cheyanne To RN Unavailable Unavailabl Rayna Wong RN Unavailable Unavailab Shilpa Olivarez RN Unavailable [phone] Tulio Duong RN Unavailable Unavailable Yaquelin Weaver RN Unavailable Unavailable Pam Wang RN Unavailable Unavailable Jazmín Nair RN Unavailable Unavailable Fidel Rainey RN Unavailable Unavailable Cheryl Nair RN Unavailable [phone] Ophelia Lala RN Unavailable Glo Lee RN Unavailable Unavailab Sanam Evans DRY SANDER Unavailable Unavailable Hilary Clemens RN Unavailable Unavaila Ruthy Clayton RN Unavailable Unavailable Rayna Partida RN Unavailable Unavailab Artur Nelson RN Unavailable Unavailable Annette Walker DRY SANDER Unavailable [phone] Emmie Crain RN Unavailable Unavailable Brigida Enriquez RN Unavailable Unavailable Fidel Rainey RN Unavailable Unavailable Batool Celis MD Unavailable [phone] Ayush Marrero MD Primary Care Provider [phone] Encounter Details Date Type Department Care Team (Late st Contact Info) Description 10/25/2023 Orders Only [facility] [place] [address] Diane Ellis MD 1 [place] [address] Social History Tobacco Use Types [...] Description 05/19/2025 2:15 PM EST Office Visit [address] [place] [address] Sin Tran MD [address] [place] [address] 06/08/2025 12:45 PM EST Procedure visit [facility] [address] [facility] [address] [place] [address] Samm Ledesma APRN [address] [facility] 100 [place] [address] 08/12/2025 10:40 AM EST Appointment [facility] Women[facility] [address] [place] [address] Matt Ulrich MD [address] [place] [address] [address] [place] [id number] documented as of this encounter Goals Goal [...] EDT) 10/25/2023 10:4 4 AM EDT Narrative [facility] - 11/11/2023 7:42 AM EDT Requesting Provider: KIT Womack Specimen = [id number] us Diane Ellis MD PATHOLOGY ORDERABLES Final Resul t [facility] 1 [place] [address] documented in this encounter Visit Diagnoses Not on filedocumented in this encounter Additional Health Concerns Infection Onset Date Last Indicated Resolved Time COVID-19 09/04/2024 09/04/2024 09/24/2024 10:1 2 PM EDT documented as of this encounter Care Teams Carpentry Professional Relationship Specialty [place] [address] [place] [address] PCP - General 06/21/10 03/08/25 Ayush Marrero MD [address] [place] [address] PCP - General Family Medicine 03/09/25 Arlyn Schmidt MD [address] [place] [address] Consulting Physician Internal Medicine-Endocrinolog y, Diabetes & Metabolism 11/28/20 Cheryl Nair, RN Oncology Nurse Navigator 10/29/2302/05 Tacho Echavarria MD 1 [place] [address] Internal Medicine-Medical Oncology 11/12/23 Matt Ulrich MD 1 [place] [address] Surgery-Surgical Oncology 12/04/23 Hilary Clemens, [...] Nurse Infusion Therapy 04/03/24 04/03/24 Sanam Murray, DRY SANDER Operating Room Coordinator 04/10/24 07/30/24 Hilary Clemens, RN Registered Nurse Infusion Therapy 04/21/24 04/21/24 Ruthy Walker RN Registered Nurse Infusion Therapy 04/24/24 04/24/24 Rayna Partida RN Registered Nurse Infusion Clinic 05/01/24 05/01/24 Artur Roberts RN Registered Nurse Infusion Therapy 05/07/24 05/07/24 Annette Walker, DRY SANDER Operating Room Coordinator 05/13/24 Emmie Crain, RN Registered Nurse Infusion Therapy 05/14/24 05/14/24 Brigida Enriquez, RN Registered Nurse Infusion Clinic 05/21/24 05/21/24 Fidel Rainey, RN Registered Nurse Infusion Therapy 05/28/24 05/28/24 Batool Celis MD [address] [place] [address] [place] [address] Radiation Oncologist Radiology-Radiation Oncology 06/08/24 documented as of this encounter
--- OUTSIDE RECORDS SUMMARY | 2025-05-04 11:56 | XMS_ITS | Clinical Summary ---
Author Organization [facility] Address [address] [place] [address] Phone Care Team Providers Care Human Resource Adviser Name Role Phone Outside, Provider Unavailable [phone] Conditions or Problems No information available. Medications No information available. Medications Administered No information available. Allergies, Adverse Reactions, Alerts No information available. Results No information available. Plan of Care No information available. Procedures No information available. Vital Signs No information available. Immunizations No information available. Advance Directives No information available.
--- OUTSIDE RECORDS SUMMARY | 2025-05-04 11:58 | XMS_ITS | Encounter Summary ---
Author Organization [place] [address] Care Team Providers Care Rougher Merchant Mill Name Role Phone Arlyn Schmidt MD Unavailable [phone] Tacho Echavarria MD Unavailable [phone] Matt Ulrich MD Unavailable [phone] Eze Brock Unavailable Annette Walker CUSTOMER RELATIONS ADVISOR Unavailable [phone] Batool Ceils MD Unavailable [phone] Ayush Marrero MD Primary Care Provider [phone] Reason for Visit * Reason Onset Date Comments Cancelled Appointment 04/23/2025 For with [facility] (6 month f/u) Encounter Details Date Type Department Care Team (Late st Contact Info) Description 04/23/2025 Telephone [facility] [place] [address] Josie Almaraz, Clerical Staff Cancelled Appointment (For 04/29/25 with [facility] (6 month f/u)) Social History Tobacco Use Types Packs/Day Years [...] in a long-term (including now)? No 11/07/2023 [facility] IP Transportation Answer D ate [...] encounter Miscellaneous Notes * Telephone Encounter - Josie Almaraz, Clerical Staff - 04/23/2025 2:24 PM EDT Pt feels that this follow-up is not necessary since she is currently under [place] Dr Rowan ([facility]) for Stage IV met breast ca. Told her we would let Dr Celis know that I cancelled the appt, but that if [facility] felt that something different should be done, she would have someone call the pt back. documented in this encounter Plan of Treatment Upcoming Encounters Date Type Department Care Team (Late st Contact Info) Description 05/19/2025 2:15 PM EST Office Visit [facility] [address] [place] [address] [address] [place] [address] Sin Tran MD [address] [place] [address] 06/08/2025 12:45 PM EST Procedure visit [facility] [address] [facility] [address] [place] [address] Samm Ledesma APRN [address] [facility] [address] [address] [place] [address] 08/12/2025 10:40 AM EST Appointment [facility] [place] [address] Matt Ulrcih MD [address] [place] [address] [address] [place] [address] documented as of this encounter [...] documented as of this encounter Care Teams Rougher Merchant Mill Relationship Specialty Start Date End Date Ayush Marrero MD [address] [place] [address] PCP - General Family Medicine 03/09/25 Arlyn Schmidt MD [address] [place] [address] Consulting Physician Internal Medicine-Endocrinology, Diabetes & Metabolism 11/28/20 Tacho Echavarria MD 1 [place] [id number] Internal Medicine-Medical Oncology 11/12/23 Matt Ulrich MD 1 [place] [id number] Surgery-Surgical Oncology 12/04/23 Eze Brock Pastoral Care 12/13/23 Annette Walker, CUSTOMER RELATIONS ADVISOR Monorail Helper 05/13/24 Batool Celis MD 1 [facility] [place] [address] Radiation Oncologist Radiology-Radiation Oncology 06/08/24 documented as of this encounter
--- OUTSIDE RECORDS SUMMARY | 2025-05-04 11:58 | XMS_ITS | Encounter Summary ---
Author Organization [place] [address] Care Team Providers Care Ground Support Equipment Assembler Name Role Phone Kit Cedeno MD Primary Care Provider [phone] Arlyn Schmidt MD Unavailable [phone] Cheryl Nair RN Unavailable [phone] Tacho Echavarria MD Unavailable [phone] Matt Ulrich MD Unavailable [phone] Hilary Clemens RN Unavailable Unavaila Eze Caro Unavailable Shila Albrecht RN Unavailable Unavail able Cheyanne To RN Unavailable Unavailabl Rayna Wong RN Unavailable Unavailab Shilpa Olivarez RN Unavailable [phone] Tulio Duong RN Unavailable Unavailable Yaquelin Weaver RN Unavailable Unavailable Pam Wang RN Unavailable Unavailable Jazmín Nair RN Unavailable Unavailable Fidel Rainey RN Unavailable Unavailable Cheryl Nair RN Unavailable [phone] Ophelia Lala RN Unavailable Glo Lee RN Unavailable Unavailab Sanam Evans CHIEF TECHNICIAN Unavailable Unavailable Hilary Clemens RN Unavailable Unavaila Ruthy Clayton RN Unavailable Unavailable Rayna Partida RN Unavailable Unavailab Artur Nelson RN Unavailable Unavailable Annette Walker CHIEF TECHNICIAN Unavailable [phone] Emmie Crain RN Unavailable Unavailable Brigida Enriquez RN Unavailable Unavailable Fidel Rainey RN Unavailable Unavailable Batool Celis MD Unavailable [phone] Ayush Marrero MD Primary Care Provider [phone] Encounter Details Date Type Department Care Team (Late st Contact Info) Description 10/25/2023 Orders Only [facility] [place] [address] Diane Ellis MD 1 [place] [address] Social History Tobacco Use Types [...] Description 05/19/2025 2:15 PM EST Office Visit [address] [place] [address] Sin Tran MD [address] [place] [address] 06/08/2025 12:45 PM EST Procedure visit [facility] [address] [facility] [address] [place] [address] Samm Ledesma APRN [address] [facility] [address] [place] [address] 08/12/2025 10:40 AM EST Appointment [facility] Women's [facility]ness [facility] [address] [place] [address] Matt Ulrich MD [address] [place] [address] [address] [place] [id number] documented as of this encounter Goals Goal [...] [facility] - 11/01/2023 3:02 PM EDT Requesting Provider: KIT Womack Specimen = [id number] us Diane Ellis MD PATHOLOGY ORDERABLES Final Resul t [facility] 1 [place] [address] documented in this encounter Visit Diagnoses Not on filedocumented in this encounter Additional Health Concerns Infection Onset Date Last Indicated Resolved Time COVID-19 09/04/2024 09/04/2024 09/24/2024 10:1 2 PM EDT documented as of this encounter Care Teams Ground Support Equipment Assembler Relationship Specialty [place] [address] [place] [address] PCP - General 06/21/10 03/08/25 Ayush Marrero MD [address] [place] [address] PCP - General Family Medicine 03/09/25 Arlyn Schmidt MD [address] [place] [address] Consulting Physician Internal Medicine-Endocrinolog y, Diabetes & Metabolism 11/28/20 Cheryl Nair, RN Oncology Nurse Navigator 10/29/2302/05 Tacho Echavarria MD 1 [place] [address] Internal Medicine-Medical Oncology 11/12/23 Matt Ulrich MD 1 [place] [address] Surgery-Surgical Oncology 12/04/23 Hilary Clemens, [...] Infusion Therapy 04/03/24 04/03/24 Sanam Murray, CHIEF TECHNICIAN Senior Data Quality Analyst 04/10/24 07/30/24 Hilary Clemens, RN Registered Nurse Infusion Therapy 04/21/24 04/21/24 Ruthy Walker RN Registered Nurse Infusion Therapy 04/24/24 04/24/24 Rayna Partida RN Registered Nurse Infusion Clinic 05/01/24 05/01/24 Artur Roberts RN Registered Nurse Infusion Therapy 05/07/24 05/07/24 Annette Walker, CHIEF TECHNICIAN Senior Data Quality Analyst 05/13/24 Emmie Crain, RN Registered Nurse Infusion Therapy 05/14/24 05/14/24 Brigida Enriquez, RN Registered Nurse Infusion Clinic 05/21/24 05/21/24 Fidel Rainey, RN Registered Nurse Infusion Therapy 05/28/24 05/28/24 Batool Celis MD [address] [place] [address] [place] [address] Radiation Oncologist Radiology-Radiation Oncology 06/08/24 documented as of this encounter
--- OUTSIDE RECORDS SUMMARY | 2025-05-04 11:58 | XMS_ITS | Data Portability ---
Author Organization Formerly [facility] Address [address] [place] [address] Care Team Providers Care Drosser Name Role Phone ONCOLOGY - [facility] Referring Provider Assessment Encounter Date Assessment Date Assessment LastModified by Organization Details LastModified Time 02/08/2025 02/08/2025 -Medications were reviewed and any necessary updates and renewals were made, patient instructed to complete as prescribed. -The potential side effects of medications were discussed. -Counseling was done on care goals and ways to prevent future hospitalizatio ns. -Further treatment per orders listed below. [email or web address] Not available 02/08/2025 10:56:05 Plan of Treatment Reminders Order Date Submit Date Provider Last Modified By Organization Details Last Modified Time Details Appointments None recorded. 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 last week. 2024 025 REDD Not available 23:07:15 cardiologis t referral - needs with dr pj duran pt 2024 025 REDD Davies MD, [address], [place], [address], 08:13:12 Procedures None recorded. Surgeries None recorded. Imaging None recorded. Medication Orders None recorded. Patient TargetsNo targets recorded. Patient InstructionsNo instructions recorded. 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 last week. Referring Physician: Julien Alejandre, [facility] Medicine, Encounter Date: 02/08/2025 Results Created Date Observation Date Name Description Value Unit Range Abnormal Flag Note LastModifiedBy Organization Detail LastModifiedTime 02/09/2002/09/2025 VITAM IN D, 25-HY DROXY vitamin D, 25-hydroxy 43.4 NG/mL 30.0-1 00.0 Vitam in D defic iency has been defin ed by the Insti tute of Medic ine and an Endoc rine Socie ty pract ice guide line as a level of serum 25-OH vitam in D less than 20 ng/mL (1,2) . The Endoc rine Socie ty went on to [facility] defin e vitam in D insuf ficie ncy as a level betwe en 21 and 29 ng/mL (2). 1. IOM (Inst itute of Medic ine). 2009. Dieta ry refer ence intak es for calci um and D. Kassi goss [place]: [facility] . 2. Pia samayoa MF, Rachid bush [place], [place] off-F errar i [place]BL[place], et al. Evalu ation , treat ment, and preve ntion of vitam in D defic iency : an Endoc rine Socie ty clini zeus pract ice guide line. JCEM. 2010; 96(7) :1911 -30. Not Available [facility] ([facility]) [address], [place], [address], 02/09/2025 08:09:18 02/13/20 25 01/27/2024 MAMMO , diagn ostic , tomos ynthe sis, unila teral No observ ation record ed. efryman Not Available 2024 09:36:37 02/13/20 25 10/15/2023 MAMMO , diagn ostic , bilat eral No observ ation record ed. efryman Not Available 2024 09:36:37 Result Notes None recorded. Problems Name Problem SNOMED Code Status Onset Date Resolution Date Notes Provider Name and Address Organization Details Recorded Time Chronic back pain 985532939 Active Macarena High null, [place] - [facility] 12:02:10 Malignant neoplasm of breast 152729321 Active 2023 Macarena High [place] - [facility] 12:01:43 Vitamin D deficiency 69143389 Active 2024 Mirthapreeti Zavala null, [place] - [facility] 10:50:34 Acute pulmonary embolism 180002217 Active 2024 Julien Alejandre, MECHANICAL FACILITIES TECHNICIAN [address], [place], [address] , [place] - [facility] 5 15:43:30 Chronic depression 296988498 Active 2024 Julien Alejandre, MECHANICAL FACILITIES TECHNICIAN [address], [place], [address] , [place] - [facility] 5 15:43:49 Migraine with persistent visual aura 691981178 Active 2024 Julien Alejandre, MECHANICAL FACILITIES TECHNICIAN [address], [place], [address] , [place] - [facility] 5 15:44:49 Restless legs syndrome 43990080 Active 2024 Julien Alejandre, MECHANICAL FACILITIES TECHNICIAN [address], [place], [address] , [place] - [facility] 5 15:44:51 Urinary incontinence 222578415 Active 2024 Julien Alejandre, MECHANICAL FACILITIES TECHNICIAN [address], [place], [address] , [place] - [facility] 5 15:44:52 Irritable bowel syndrome 04191851 Active 2024 Mirtha Zavala null, [place] - [facility] 09:52:35 Problem Notes None recorded. Procedures Surgical History Date Name Laterality Status Provider Name and Address Organization Details Recorded Time 02/09/20 25 Medication Reconcilliation completed Macarena High [place] - [facility] 02/08/2025 10:56:05 07/06/20 24 Breast Surgery completed Macarena High [place] - [facility] 02/08/2025 09:09:52 appendectomy completed Macarena High [place] - [facility] 02/08/2025 11:52:51 cholecystectomy completed Macarena High [place] - [facility] 02/08/2025 11:52:59 gastric sleeve completed Macarena High [place] [facility] 02/08/2025 11:53:11 surgical procedure on lumbar spine completed Macarena [place] - [facility] 02/08/2025 11:53:34 implantation of drug delivery reservoir completed Macarena [place] - [facility] 02/08/2025 11:53:47 procedure on spine completed Shun [place] - [facility] 02/08/2025 11:53:58 Tonsillectomy completed Macarena [place] - [facility] 02/08/2025 11:55:52 Imaging Results None recorded. Procedure Notes None recorded. Medical Equipment None Reported. Allergies Allergen ID Allergen Name Allergen Category Reaction Reaction Severity Criticality Documentation Date Start Date Code Code System Note Provider Name and Address Organization Details Recorded Time 394949 amoxicill in medicatio n rash Not available high 02/08/2025 723 RxNorm Macarena Anilaharsh eng, [place] - [facility] 09:29:12 180192 cefazolin medicatio n rash Not available high 02/08/2025 2180 RxNorm Macarena High velas[place], [place] - [facility] 09:50:27 176989 hydrocodo ne Not available rash Not available high 02/08/2025 5489 RxNorm Macarena Mosquedaharsh eng, [place] - [facility] 09:53:21 513866 varicella zoster immune globulin (human) medicatio n rash Not available high 02/08/2025 31211 6 RxNorm Macarena High velas[place], [place] - [facility] 09:54:03 407414 methocarb les medicatio n diarrhea Not available high 02/08/2025 6845 RxNorm Macarena eng, [place] - [facility] 5 09:54:51 853607 tree nut food Not available Not available high 02/08/2025 Macarena eng, [place] - [facility] 5 09:55:06 640899 lactose food,medi cation Not available Not available high 02/08/2025 6211 RxNorm Macarena eng, [place] - [facility] 5 09:55:15 326296 sumatript an medicatio n rash Not available high 02/08/2025 28937 RxNorm Macarena [place] null, [place] - [facility] 5 09:55:36 923841 morphine medicatio n rash Not available [facility] 02/08/2025 7052 RxNorm Macarena eng, [place] - [facility] 5 09:56:02 008818 adhesive tape environme nt,medica tion rash Not available high 02/08/2025 Macarena eng, [place] - [facility] 5 09:56:32 588494 silver medicatio n rash Not available high 02/08/2025 54327 43 RxNorm Macarena eng, [place] - [facility] 5 09:56:51 753373 zoster vaccine live Not available rash Not available high 02/08/2025 Macarena eng, [place] - [facility] 5 09:57:04 Medications Name Sig Start Date Stop Date Status Note LastModified by Organization Details LastModified Time fluconazole 150 mg tablet TAKE ONE TABLET BY MOUTH EVERY 3 DAYS FOR 2 doses active Not Available Not Available No t Available olanzapine 10 mg tablet TAKE ONE HALF (1/2) TABLET BY MOUTH EVERY DAY active Not Available Not Available No t Available metronidazol e 500 mg tablet TAKE ONE TABLET BY MOUTH TWICE DAILY FOR 5 DAYS -- FINISH ALL MEDICINE -- --TAKE WITH FOOD-- active Not Available Not Available No t Available prochlorpera zine maleate 10 mg tablet Take 1 tablet 3 times a day by oral route as needed. active Not Available Not Available No t Available ciprofloxaci n 500 mg tablet TAKE ONE TABLET BY MOUTH EVERY TWELVE HOURS FOR 5 DAYS --TAKE WITH FOOD-- -- FINISH ALL MEDICINE -- active Not Available Not Available Not Available omeprazole 40 mg capsule,isaiah yed release TAKE ONE (1) CAPSULE BY MOUTH EVERY DAY active Not Available Not Available No t Available ondansetron 8 mg disintegrati ng tablet Place 1 tablet every 8 hours by translingua l route as needed. active Not Available Not Available No t Available exemestane 25 mg tablet TAKE ONE TABLET BY MOUTH EVERY DAY active Not Available Not Available No t Available ropinirole 0.25 mg tablet TAKE ONE (1) TABLET BY MOUTH EVERY DAY AT BEDTIME active Not Available Not Available N ot Available oxybutynin chloride ER 5 mg tablet,exten ded release 24 hr TAKE ONE TABLET BY MOUTH EVERY DAY active Not Available Not Available No t Available Vitamin D2 1,250 mcg (50,000 unit) capsule Take 1 capsule every week by oral route. active Not Available Not Available No t Available duloxetine 30 mg capsule,isaiah yed release TAKE ONE CAPSULE BY MOUTH EVERY DAY active Not Available Not Available No t Available Xarelto 15 mg tablet TAKE ONE TABLET BY MOUTH TWICE DAILY WITH FOOD active Not Available Not Available No t Available lidocaine 2.5 %-prilocaine 2.5% and m.salicy 30 %-menth 10 % top cream use 30 minutes prior to port access active Not Available Not Available Not Available abemaciclib 100 mg tablet Take 1 tablet twice a day by oral route. active Not Available Not Available No t Available Qulipta 60 mg tablet Take 1 tablet every day by oral route. active Not Available Not Available No t Available Vitals Date Recorded Body height Body mass index (BMI) Body weight Body temperature Heart rate Oxygen saturation Oxygen saturation in Arterial blood by Pulse oximetry Respiratory rate Pain severity - 0-10 verbal numeric rating [Score] - Reported Systolic And Diastolic Provider Name and Address Organization Details Last Updated DateTime 5 160.02 cm 33.7 kg/m2 99479.5 5 g 97.2 [degF] 97 /min 98 % 98 % 18 /min 5 97/58 mm[Hg] Macarena High [place] - [facility] 09:24:50 Social History Question Answer Notes LastModified by Organizat ion Details LastModified Time Tobacco Smoking Status Never Smoker Macarena eng, [place] - [facility] 02/08/2025 09:38:48 Do You Have An Advance Directive? No adelso Information not available 02/08/2025 Are You Blind Or Do You Have Difficulty Seeing? No Information not available 02/08/2025 What Is Your Level Of Caffeine Consumption? None Information not available 02/08/2025 In The 14 Days Before Symptom Onset, Have You Had Close Contact With A Laboratory-confir med COVID-19 While That Case Was Ill? No Information not available 02/08/2025 In The 14 Days Before Symptom Onset, Have You Had Close Contact With A Person Who Is Under Investigation For COVID-19 While That Person Was Ill? No Information not available 02/08/2025 Have You Been To An Area Known To Be High Risk For COVID-19? No Information not available 02/08/2025 Are You Deaf Or Do You Have Serious Difficulty Hearing? No Information not available 02/08/2025 What Type Of Diet Are You Following? REGULAR Information not available 02/08/2025 Have You Processed Blood Or Body Fluids From An Ebola Virus Disease Patient Without Appropriate PPE? No Information not available 02/08/2025 Do You Reside In Or Have You Traveled To An Area Where Ebola Virus Transmission Is Active? No Information not available 02/08/2025 What Is The Highest Grade Or Level Of School You Have Completed Or The Highest Degree You Have Received? [id number] Information not available 02/08/2025 Have There Been Any Changes To Your Family Or Social Situation? Yes Moved, Disabled Information not available 02/08/2025 Have You Recently Or Are You Planning To Travel To An Area With Zika Virus? No Information not available 02/08/2025 Do You Have A Medical Power Of Trauma Registrar? No Information not available 02/08/2025 What Was The Date Of Your Most Recent Tobacco Screening? 02/08/2025 Information not available 02/08/2025 How Many Children Do You Have? 4 Information not available 02/08/2025 What Is Your Relationship Status? Information not available 02/08/2025 Do You Have Smoke And Carbon Monoxide Detectors In Your Home? Yes Information not available 02/08/2025 Has Tobacco Cessation Counseling Been Provided? No Information not available 02/08/2025 Do You Have Difficulty Walking Or Climbing Stairs? No Information not available 02/08/2025 Sex: Female Functional Status Question Answer Note LastModified by Organizat ion Details LastModified Time Do you use any illicit or recreational drugs? No Information not available 02/08/2025 Do you or have you ever used any other forms of tobacco or nicotine? No Information not available 02/08/2025 What is your level of alcohol consumption? None Information not available 02/08/2025 Are you currently employed? No Information not available 02/08/2025 Do you have transportation difficulties? No Information not available 02/08/2025 Are you able to walk independently without assistance or assistive devices? YESASSIST Information not available 02/08/2025 Do you have difficulty doing errands alone? No Information not available 02/08/2025 Are you able to care for yourself independently? Yes Information not available 02/08/2025 Do you have difficulty dressing, bathing, grooming, or toileting? No Information not available 02/08/2025 Mental Status Question Answer Note LastModified by Organizat ion Details LastModified Time Do you feel stressed (tense, restless, nervous, or anxious, or unable to sleep at night)? [id number] Information not available 02/08/2025 Do you have difficulty concentrating, remembering or making decisions? No Information no t available 02/08/2025 Family History Relationship Description Onset Age of this Age Resolved Age Notes LastModified by Organization Details LastModified Time Son Diabetes mellitus [email or web address] Not available 2024 09:09:52 Medical History Condition Response Breast Cancer Y Depression Y Diabetes Y Anxiety Disorder Y Obesity Y Degenerative Disc Disease Y Blood clot Y Neuropathy Y Headaches Y Hypertension Y Gynecological History Statement/Question Response Menses Monthly N LMP Unknown Obstetrics History GPAL:G 0 P 0 0 0 0 Immunizations Vaccine Type Date Status Note Provider Nam e and Address Organization Details Recorded Time Influenza, recombinant, quadrivalent, PF 9 completed Not Available [facility] 02/08/2025 09:06:23 zoster recombinant 0 completed Not Available [facility] 02/08/2025 09:06:23 COVID-19, mRNA, LNP-S, PF, 30 mcg/0.3 mL dose 1 completed Not Available [facility] 02/08/2025 09:06:23 COVID-19, mRNA, LNP-S, PF, 30 mcg/0.3 mL dose 1 completed Not Available [facility] 02/08/2025 09:06:23 COVID-19, mRNA, LNP-S, PF, 30 mcg/0.3 mL dose 1 completed Not Available [facility] 02/08/2025 09:06:23 Influenza, recombinant, quadrivalent, PF 1 completed Not Available [facility] 02/08/2025 09:06:23 Pneumococcal conjugate PCV20, polysaccharide [id number] conjugate, adjuvant, PF 2 completed Not Available [facility] 02/08/2025 09:06:23 Influenza, recombinant, quadrivalent, PF 2 completed Not Available [facility] 02/08/2025 09:06:23 Influenza, split virus, quadrivalent, PF 3 completed Not Available [facility] 02/08/2025 09:06:23 Influenza, high-dose, trivalent, PF 4 completed Not Available [facility] 02/08/2025 09:06:23 Past Encounters Encounter ID Performer Location Encounter Start Date Encounter Closed Date Diagnosis/Indication Diagnosis SNOMED-CT Code Diagnosis ICD10 Code Diagnosis IMO Codes Diagnosis Note [id number] Julien Alejandre APRN [address] [address] 02/08/2025 09:00:27 02/08/2025 11:13:11 Vitamin D deficiency 83619411 E55.9 18207 labs Malignant neoplasm of breast 228214709 C50.911 [id number] obtain records Chronic back pain 118812 002 M54.9 G89.29 04285086 Chronic depression 06953 0009 F32.A 428879 Migraine w ith persistent visual aura 769258992 G43.042 2772505 neurology referral Restless l egs syndrome 68159509 G25.81 79194 Urinary incontinence 165 414349 R32 88300785 Essential hypertension 49158107 I10 03543 cardiology referral Hyperglycemia 36395458 R 73.9 19959 endo referral Health Concerns Section Related Observation LastModified by Organization Detai ls LastModified Time None Recorded Concern Status LastModified by Organization Details LastModified Time None Recorded Advance Directives Directive N: Payers Insurance Date Sequence Insurance Name Policy Number Policy Hassan Covered Member ID Hassan Member ID Guarantor Name 03/06/2025 1 [employer] [place] (MEDICAID HMO) Meri Douglas [id number] Meri Cole 03/31/2025 [place] [employer] [place] Meri Douglas [id number] Merimarcie Cole Notes Date Note Type Note Provider Name and Address Organization Details Recorded Time 02/08/2025 text/html Emergency Depart ment Follow-Up RecordReported by PatientEmergency Room Follow-Up RecordFor discharge information, patient reportsname of hospital/urgent care patient was seen: ([facility]),patient presented to hospital/urgent care on or around: actual date 02/03/25,patient presented to hospital for treatment of: (low potassium, dehydration),treatment received by hospital/urgent care: (blood work, ivf's),patient's condition has: improved, andhospital records available at the time of this visit: no. 59 yr old female presents as new patient- has been weak from recent condition/episodes of diarrhea, low potassium and er visit last week.vitamin d deficiency- needs labs drawnhx of stage 3 b1dc breast ca with mets to lymph nodes- 13 nodes removed all positive. 10/29- [facility]- dr auguste- finished chemo and radiation and now taking two oral agentsrecent hospitalization for PE in left lung- pt states last 2 pet scans showed something abnormal. 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 - [facility] 02/08/2025 15:49:17 OBGyn Episode No OBEpisode recorded.
--- OUTSIDE RECORDS SUMMARY | 2025-05-04 11:58 | XMS_ITS | Encounter Summary ---
Author Organization [facility] [address] Care Team Providers Care Physical Medicine Specialist Name Role Phone Arlyn Schmidt MD Unavailable [phone] Tacho Echavarria MD Unavailable [phone] Matt Ulrich MD Unavailable [phone] Eze Brock Unavailable Annette Walker COMBINE INSPECTOR Unavailable [phone] Batool Celis MD Unavailable [phone] Ayush Marrero MD Primary Care Provider [phone] Reason for Visit * Reason Onset Date Comments Schedule Appointment 04/02/2025 Call from Chely Rowan's office to schedule MRI Encounter Details Date Type Department Care Team (Late st Contact Info) Description 04/02/2025 Telephone [facility] [place] [address] Tacho Echavarria MD [address] [place] [address] [phone] Schedule Appointment (Call from Dr. Rowan's office [...] [facility] - Occupational [...] skilled nursing (including now)? No 11/07/2023 [facility] IP Transportation Answer D ate [...] Description 05/19/2025 2:15 PM EST Office Visit [address] [address] Sin Tran MD [address] [place] [address] 06/08/2025 12:45 PM EST Procedure visit [facility] [address] [facility] [address] [place] [address] Samm Ledesma APRN [address] [facility] [address] [place] [address] 08/12/2025 10:40 AM EST Appointment [facility] [address] [place] [address] Matt Ulrich MD [address] [place] [address] [address] [place] [address] documented as of this encounter [...] documented as of this encounter Care Teams Physical Medicine Specialist Relationship Specialty Start Date End Date Ayush Marrero MD [address] [place], [place] [id number] PCP - General Family Medicine 03/09/25 Arlyn Schmidt MD [address] [place] [address] Consulting Physician Internal Medicine-Endocrinology, Diabetes & Metabolism 11/28/20 Tacho Echavarria MD [address] [place] [address] Internal Medicine-Medical Oncology 11/12/23 Matt Ulrich MD [address] [place] [address] Surgery-Surgical Oncology 12/04/23 Eze Brock Pastoral Care 12/13/23 Annette Walker, COMBINE INSPECTOR Rn Training 05/13/24 Batool Celis MD [address] [facility] [place] [address] Radiation Oncologist Radiology-Radiation Oncology 06/08/24 documented as of this encounter
--- OUTSIDE RECORDS SUMMARY | 2025-05-04 11:58 | XMS_ITS | Encounter Summary ---
Author [place] [address] Care Team Providers Care Rf Engineer Name Role Phone Arlyn Schmidt MD Unavailable [phone] Tacho Echavarria MD Unavailable [phone] Matt Ulrich MD Unavailable [phone] Eze Brock Unavailable Annette Walker REPAIRER SCREEN CRUSHER Unavailable [phone] Batool Celis MD Unavailable [phone] Ayush Marrero MD Primary Care Provider [phone] Reason for Visit * Reason Comments Pharmacy Migraine Medication Management Qulipta Encounter Details Date Type Department Care Team (Latest Contact Info) Description 04/23/2025 Specialty Pharmacy [facility] [address] [place] [address] Annamarie Mark CPhT Pharmacy Migraine [...] th e electric, gas, oil, or water Official Limited Virtual threatened to shut off services in your [...] Total Score 5 07/07/2024 [facility] [place] of Occupat ional [facility] - Occupational Stress Questionnaire Answer [...] in a long-term (including now)? No 11/07/2023 [facility] IP Transportation Answer D [...] Progress Notes * Annamarie Mark CPhT - 04/23/2025 2:13 PM EDT Specialty Pharmacy Refill Coordination Note Contacted [place] today regarding refills of Qulipta. Copay amount: $0 No answer, unable to leave voicemail. mailbox not set up * Annamarie Mark CPhT - 04/23/2025 2:13 PM EDT Specialty Pharmacy Refill Coordination Note Contacted [place] today regarding refills of Qulipta. Copay amount: $0 No answer, unable to leave voicemail. vcm not set up; home disconnected * Aretah Prabhakar CPhT - 04/23/2025 2:13 PM EDT Specialty Pharmacy Refill Coordination Note Contacted [place] today regarding refills of Qulipta and Nurtec. Copay amount: $0.00. Sent [email or web address] message. Patient informed of copay. documented in this encounter Plan of Treatment Upcoming Encounters Date Type Department Care Team (Late st Contact Info) Description 05/19/2025 2:15 PM EST Office Visit [address] [place] [address] Sin Tran MD [address] [place] [address] [place] [address] 06/08/2025 12:45 PM EST Procedure visit [facility] [address] [place], [place] [id number] Samm Ledesma, LEYLA [address] [place] [address] 08/12/2025 10:40 AM EST Appointment [facility] [place] [facility] [place] [place] [address] Matt Ulrich MD [address] [place] [address] [address] [place] [address] documented as of this encounter Goals Goal Patient Goal Type Associated Problems Recent Progress Patient-Stated? Author Blood Pressure < 140/90 Blood Pressure 123/84(03/24 1:35 PM EDT) No Chetna Cedeno MD Breast [facility] Breast Health On track(2024 11:27 AM EDT) No Jasmin Porter, RAUL Note: Patient acknowledges understanding of new diagnosis, plan of care, available resources and how to contact Nurse Navigator with any future questions or concerns. Breast [facility] Breast Health Not on track(2024 11:27 AM EDT) No Jasmin Porter, RAUL Note: Patient will be compliant with monthly SBE and is aware of who to contact for any unusual or concerning findings. Breast [facility] Breast Health On track(2024 11:27 [...] documented as of this encounter Care Teams Rf Engineer Relationship Specialty Start Date End Date Ayush Marrero MD [address] [place] [address] PCP - General Family Medicine 03/09/25 Arlyn Schmidt MD [address] [place] [address] Consulting Physician Internal Medicine-Endocrinology, Diabetes & Metabolism 11/28/20 Tacho Echavarria MD 1 [place] [address] Internal Medicine-Medical Oncology 11/12/23 Matt Ulrich MD 1 [place] [address] Surgery-Surgical Oncology 12/04/23 Eze Brock Pastoral Care 12/13/23 Annette Walker, ARACELI Water Plant Pump Operator Supervisor 05/13/24 Batool Celis MD 1 [facility] [place] [address] Radiation Oncologist Radiology-Radiation Oncology 06/08/24 documented as of this encounter
--- OUTSIDE RECORDS SUMMARY | 2025-05-04 11:58 | XMS_ITS | Encounter Summary ---
Author Organization [place] [address] Care Team Providers Care Multifold Operator Name Role Phone Kit Cedeno MD Primary Care Provider [phone] Arlyn Schmidt MD Unavailable [phone] Cheryl Nair RN Unavailable [phone] Tacho Echavarria MD Unavailable [phone] Matt Ulrich MD Unavailable [phone] Hilary Clemens RN Unavailable Unavaila Eze Caro Unavailable Shila Albrecht RN Unavailable Unavail able Cheyanne To RN Unavailable Unavailabl Rayna Wong RN Unavailable Unavailab Shilpa Olivarez RN Unavailable [phone] Tulio Duong RN Unavailable Unavailable Yaquelin Weaver RN Unavailable Unavailable Pam Wang RN Unavailable Unavailable Jazmín Nair RN Unavailable Unavailable Fidel Rainey RN Unavailable Unavailable Cheryl Nair RN Unavailable [phone] Ophelia Lala RN Unavailable Glo Lee RN Unavailable Unavailab Sanam Evans DIRECTOR OF PHOTOGRAPHY Unavailable Unavailable Hilary Clemens RN Unavailable Unavaila Ruthy Clayton RN Unavailable Unavailable Rayna Partida RN Unavailable Unavailab Artur Nelson RN Unavailable Unavailable Annette Walker DIRECTOR OF PHOTOGRAPHY Unavailable [phone] Emmie Crain RN Unavailable Unavailable Brigida Enriquez RN Unavailable Unavailable Fidel Rainey RN Unavailable Unavailable Batool Celis MD Unavailable [phone] Ayush Marrero MD Primary Care Provider [phone] Encounter Details Date Type Department Care Team (Late st Contact Info) Description 10/25/2023 Orders Only [facility] One [facility] [address] Diane Ellis MD 1 [place] [address] Social History Tobacco Use Types [...] Description 05/19/2025 2:15 PM EST Office Visit [address] [place] [address] Sin Tran MD [address] [place] [address] 06/08/2025 12:45 PM EST Procedure visit [facility] [address] [facility] [address] [place] [address] Samm Ledesma APRN [address] [facility] [address] [place] [address] 08/12/2025 10:40 AM EST Appointment [facility] Women's Wellness [facility] [address] [place] [address] Matt Ulrich MD [address] [place] [address] [address] [place] [id number] documented as of this encounter Goals Goal [...] [facility] - 11/06/2023 7:12 PM EDT Requesting Provider: KIT Womack Specimen = [id number] us Diane Ellis MD PATHOLOGY ORDERABLES Final Resul t [facility] 1 [place] [address] documented in this encounter Visit Diagnoses Not on filedocumented in this encounter Additional Health Concerns Infection Onset Date Last Indicated Resolved Time COVID-19 09/04/2024 09/04/2024 09/24/2024 10:1 2 PM EDT documented as of this encounter Care Teams Multifold Operator Relationship Specialty [place] [address] [place] [address] PCP - General 06/21/10 03/08/25 Ayush Marrero MD [address] [place] [address] PCP - General Family Medicine 03/09/25 Arlyn Schmidt MD [address] [place] [address] Consulting Physician Internal Medicine-Endocrinolog y, Diabetes & Metabolism 11/28/20 Cheryl Nair, RN Oncology Nurse Navigator 10/29/2302/05 Tacho Echavarria MD 1 [place] [address] Internal Medicine-Medical Oncology 11/12/23 Matt Ulrich MD 1 [place] [address] Surgery-Surgical Oncology 12/04/23 Hilary Clemens, [...] Nurse Infusion Therapy 04/03/24 04/03/24 Sanam Murray, DIRECTOR OF PHOTOGRAPHY Silviculturist 04/10/24 07/30/24 Hilary Clemens, RN Registered Nurse Infusion Therapy 04/21/24 04/21/24 Ruthy Walker RN Registered Nurse Infusion Therapy 04/24/24 04/24/24 Rayna Partida, RN Registered Nurse Infusion Clinic 05/01/24 05/01/24 rAtur Roberts RN Registered Nurse Infusion Therapy 05/07/24 05/07/24 Annette Walker, [facility] Silviculturist 05/13/24 Emmie Crain, RN Registered Nurse Infusion Therapy 05/14/24 05/14/24 Brigida Enriquez, RN Registered Nurse Infusion Clinic 05/21/24 05/21/24 Fidel Rainey, RN Registered Nurse Infusion Therapy 05/28/24 05/28/24 Batool Celis MD [address] [place] [address] [place] [address] Radiation Oncologist Radiology-Radiation Oncology 06/08/24 documented as of this encounter
--- OUTSIDE RECORDS SUMMARY | 2025-05-04 11:58 | XMS_ITS | Encounter Summary ---
Author Organization [place] [address] Care Team Providers Care Notching Press Operator Name Role Phone Chetna Cedeno MD Primary Care Provider [phone] Arlyn Schmidt MD Unavailable [phone] Tacho Echavarria MD Unavailable [phone] Matt Ulrich MD Unavailable [phone] Eze Brock Unavailable Shilpa Cline RN Unavailable [phone] Cheryl Nair RN Unavailable [phone] Ophelia Lala RN Unavailable Glo Lee RN Unavailable Unavailab Sanam Evans [employer] Unavailable Unavailable Hilary Clemens RN Unavailable Unavaila Ruthy Clayton RN Unavailable Unavailable Rayna Partida RN Unavailable Unavailab Artur Nelson RN Unavailable Unavailable Annette Walker B[employer] Unavailable [phone] Emmie Crain RN Unavailable Unavailable Brigida Enriquez RN Unavailable Unavailable Fidel Rainey RN Unavailable Unavailable Batool Celis MD Unavailable [phone] Ayush Marrero MD Primary Care Provider [phone] Encounter Details Date Type Department Care Team (Late st Contact Info) Description 03/18/2024 Lab Requisition [facility] One [facility] [address] Provider, Unknown Malignant neoplasm of unspecified site [...] Date Recorded PHQ-2 Total Score 0 11/07/2023 [facility] of [...] a group home (including now)? No 11/07/2023 Education Answer Date [...] Description 05/19/2025 2:15 PM EST Office Visit [facility] [address] [facility] [address] [place] [address] Sin Tran MD [address] [place] [address] 06/08/2025 12:45 PM EST Procedure visit [facility] [address] [facility] [address] [place] [address] Samm Ledesma APRN [address] [facility] [address] [place], [place] [address] 08/12/2025 10:40 AM EST Appointment [facility] Women[facility] [place] [id number] Matt Ulrich MD [address] [place] [address] [address] [place] [address] documented as of this encounter Goals Goal [...] EDT) CASE REPORT Surgical Pathology Report Case: [id number] Authorizing Provider: Provider, Unknown Collected: 03/18/2024 1327 Ordering Location: [facility] Received: 03/18/2024 1327 Pathologist: Diane Ellis MD Specimen: Breast, Right, Request for case [id number] slides to [facility]3]. 05/04/2024 1:26 PM EDT [facility] FINAL DIAGNOSIS Results will be scanned in this case as an addendum. 05/04/2024 1:26 PM EDT [facility] at 1329 EDT EMBEDDED IMAGES 05/04/2024 1:26 PM EDT [facility] ADDENDUM Refer to Scanned [facility] Surgical Pathology Report. 05/04/2024 1:26 PM EDT [facility] Addendum electronically signed by Diane Ellis MD on 05/04/2024 at 1326 EDT Tissue RIGHT BREAST STRUCTURE / Unknown 03/18/2024 1:27 PM EDT 03/18/2024 1:27 PM EDT us Unknown Provider PATHOLOGY ORDERABLES Edited Res ult - Final [facility] [address] [place] [address] documented in this encounter Visit Diagnoses Diagnosis Malignant neoplasm of unspecified site of right female breast (HCC) documented in this encounter Additional Health Concerns Infection Onset Date Last Indicated Resolved Time COVID-19 09/04/2024 09/04/2024 09/24/2024 10:1 2 PM EDT Assessment Noted Time PHQ-9 Depression Total Score: 12 024 12:00 PM EDT documented as of this encounter Care Teams Notching Press Operator Relationship Specialty [place] [address] [place] [address] PCP - General 06/21/10 03/08/25 Ayush Marrero MD [address] [place] [address] PCP - General Family Medicine 03/09/25 Arlyn Schmidt MD [address] [place] [address] Consulting Physician Internal Medicine-Endocrinolog y, Diabetes & Metabolism 11/28/20 Tacho Echavarria MD 1 [place] [address] Internal Medicine-Medical Oncology 11/12/23 Matt Ulrich MD 1 [place], [place] [address] Surgery-Surgical Oncology 12/04/23 Eze Brock Pastoral Care 12/13/23 Shilpa Cline, RN Oncology Nurse Navigator 02/04/2403/09 Cheryl Nair, RN Oncology Nurse Navigator 03/25/2412/13 Ophelia Lala, RAUL Registered Nurse Infusion Therapy 03/27/24 03/27/24 Glo Lee, RN Registered Nurse Infusion Therapy 04/03/24 04/03/24 Sanam Murray MSW Bee Robber 04/10/24 07/30/24 Hilary Clemens, RN Registered Nurse Infusion Therapy 04/21/24 04/21/24 Ruthy Walker RN Registered Nurse Infusion Therapy 04/24/24 04/24/24 Rayna Partida, RN Registered Nurse Infusion Clinic 05/01/24 05/01/24 Artur Roberts RN Registered Nurse Infusion Therapy 05/07/24 05/07/24 Annette Walker, [facility] Bee Robber 05/13/24 Emmie Crain, RAUL Registered Nurse Infusion Therapy 05/14/24 05/14/24 Brigida Enriquez, RAUL Registered Nurse Infusion Clinic 05/21/24 05/21/24 Fidel Rainey, RN Registered Nurse Infusion Therapy 05/28/24 05/28/24 Batool Celis MD 1 [facility] [place] [address] Radiation Oncologist Radiology-Radiation Oncology 06/08/24 documented as of this encounter
--- OUTSIDE RECORDS SUMMARY | 2025-05-04 11:58 | XMS_ITS | Encounter Summary ---
Author Organization [place] [address] Care Team Providers Care Electrician Crane Maintenance Name Role Phone Chetna Cedeno MD Primary Care Provider [phone] Arlyn Schmidt MD Unavailable [phone] Tacho Echavarria MD Unavailable [phone] Matt Ulrich MD Unavailable [phone] Eze Brock Unavailable Annette Walker Unavailable [phone] Batool Celis MD Unavailable [phone] Ayush Marrero MD Primary Care Provider [phone] Reason for Visit * Reason Comments Pharmacy Migraine Medication Management Qulipta/Nurtec Encounter Details Date Type Department Care Team (Latest Contact Info) Description 02/26/2025 Specialty Pharmacy [facility] [address] [place] [address] Charlotte Martino CPhT Pharmacy Migraine [...] in a chcf (including now)? No 11/07/2023 [facility] IP Transportation [...] refills of Qulipta/Nurtec. Copay amount: $0 Sent [employer] message. Patient informed of copay. * Annamarie [...] up on 03/09. Copay amount: $0 Sent [employer] message. Patient informed of copay. * Anisa Lozoya CPhT - 02/26/2025 11:29 AM EDT [facility] will now case picker 03/10 with verzenio documented in this encounter Plan of Treatment Upcoming Encounters Date Type Department Care Team (Late st Contact Info) Description 05/19/2025 2:15 PM EST Office Visit [address] [place] [address] Sin Tran MD [address] [place] [address] 06/08/2025 12:45 PM EST Procedure visit [facility] [address] [facility] [address] [place] [address] Samm Ledesma APRN [address] [facility] [address] [place], [place] [address] 08/12/2025 10:40 AM EST Appointment [facility] Women's Wellness [facility] [place] [address] Matt Ulrich MD [address] [place] [address] [address] [place] [address] documented as of this encounter [...] as of this encounter Care Teams Electrician Crane Maintenance Relationship Specialty [place] [address] [place] [address] PCP - General 06/21/10 03/08/25 Ayush Marrero MD [address] [place] [address] PCP - General Family Medicine 03/09/25 Arlyn Schmidt MD [address] [place] [address] Consulting Physician Internal Medicine-Endocrinology, Diabetes & Metabolism 11/28/20 Tacho Echavarria MD [address] [place] [address] Internal Medicine-Medical Oncology 11/12/23 Matt Ulrich MD 1 [place] [address] Surgery-Surgical Oncology 12/04/23 Eze Brock Pastoral Care 12/13/23 Annette Walker, SIGNALER Regional Sales Associate 05/13/24 Batool Celis MD 1 [facility] [place] [address] Radiation Oncologist Radiology-Radiation Oncology 06/08/24 documented as of this encounter
[2025-05-04 12:10] VITALS: BP 131/68; PULSE 74; RESP 18; TEMP 36.8; O2SAT 98
[2025-05-04] MEDS: FULVESTRANT 250 MG/5 ML 500 MG IM (12:10)
== END 2025-05-04 23:59 | disposition home or self-care (01) ==
LOC: INF 11:52
PROVIDERS: PCP Family Medicine; Visit Provider Internal Medicine Medical Oncology
DX: D05.11 Intraductal carcinoma in situ of right breast (principal)
CPT/HCPCS: 96402; J9395

== ENCOUNTER 2025-05-05 15:03 | Outpatient (RCR) | payer MEDICAID, SELFPAY ==
--- NOTE | 2025-05-05 16:29 | HMH.OPLYMPH ---
Rehab Lymphedema Evaluation Rehab Lymphedema Evaluation Start: 05/05/25 16:00 Freq: Status: Active Protocol: Document 05/05/25 16:00 ALDA (Rec: 05/05/25 16:29 PHORNE [id number]) E-signed By Stone Short PT Subjective/History History History This is the initial PT lymphedema eval for Meri [place], 59 yowf who presents with c/o R UE pain, swelling, and tenderness due to R side breast cancer ( invasive ductal carcinoma with mets) and ~ 1 yr S/P R radical mastectomy with 13 [address] removed. 13/13 LN removed were positive for metastatic disease. She was diagnosed with R side chest wall, axilla, supraclavicular, and chest wall mets ~ 1 mo ago. She has been undergoing chemo and radiation consistently since her initial diagnosis more than 1 yr ago. She reports significant pain and intermittent numbness throughout her R UE and flank with increased lymphedema . Subjective Subjective Current pain in R axilla and upper arm /10. 2/4 TTP noted to R upper arm and axilla. Mild erythema throughout the R UE this date. No pitting edema noted at this time, but moderate fibrotic edema noted form R forearm proximally with definitive R axilla and breast ridging noted. 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 She is R hand dominant . LLIS score 84. Pt educated in and voiced understanding of risks involved in proceeding with lymphedema treatment in a setting of active metastatic disease. New diagnosis of Yes cancer in past 12 months? Lymphedema Eval Classification of Lymphedema Secondary Lymphedema Yes: met breast cancer Stemmer's sign Stemmer's Sign yes Stage of Lymphedema Lymphedema stages Stage II (Pitting edema, increased fibrosis w/ decreased pitting) Skin Changes Dry Skin Yes Redness Yes Discoloration of Yes Skin Other Changes Yes Pain Scale Pain Scale (0-10) 6 Radiation Therapy Has received yes radiation therapy Chemo Therapy Has received chemo yes therapy Affected Extremities Areas Affected by Right Upper Extremity,Abdomen,Right Axilla,Right Chest Lymphedema/Edema Upper Extremity Measurements Right MCP Measurement (cm) 19.3 Web Space 19.6 Measurement (cm) Ulnar Styloid 15.7 Process Measurement (cm) 10 cm Proximal to 20.3 Ulnar Styloid Measurement (cm) 20 cm Proximal to 26.0 Ulnar Styloid Measurement (cm) 30 cm Proximal to 32.9 Ulnar Styloid Measurement (cm) 40 cm Proximal to 35.5 Ulnar Styloid Measurement (cm) 50 cm Proximal to 43.6 Ulnar Styloid Measurement (cm) Upper Extremity 212.9 Measurement Total ( cm) Manual Lymphatic Drainage Treatment Area MLD Treatment Area Right Upper Extremity,Abdomen,Right Axilla,Right Chest Wound Problems/Impairments Impairments Problems/ Palpation Tenderness,Impaired Range of Motion,Impaired Impairmments Strength,Impaired Endurance,Impaired Lifting,Impaired Dressing,Impaired Shower/Bathing,Impaired Household Care,Impaired Recreational Activities,Increased Edema, Lymphedema Present,Subjective C/O Pain,Impaired Self Care/Self Management Prognosis Rehab Potential Good Comment Skilled therapy is indicated to reduce overall lymphedema, increase strength. and decrease pain in an effort to aid overall improvement in QOL. 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 Patient Goals Lymphedema Patient Goals Lymphedema Short In 4 wks pt will complete these goals in order to aid Term Patient Goals improvement in function specifically with all ADLs: 1) Reduce fibrotic edema to MILD throughout R UE 2) Reduce circumferential measurements to R UE by 3 cm 3) Decrease signs of axillary web syndrome in R UE to none 4) Decrease pain in R UE and axilla to 4/10 Lymphedema Sanitation Tank Washer in 4 wks pt will complete these goals in order to aid Patient Goals improvement in function specifically with all ADLs: 1) Reduce fibrotic edema to NONE throughout R UE and MILD throughput R axilla 2) Reduce circumferential measurements to R UE by 6 cm 3) Be independent with donning/doffing of compression garments 4) be independent with Lymphedema management via HEP 5) Decrease pain in R UE and axilla to 2/10 Outpatient Therapy Plan of Care Treatment Plan May Include Therapeutic Exercise Yes Including Home Exercise Program Manual Therapy Yes Techniques Neuromuscular Re- Yes education Therapeutic Yes Activities to Return to Previous Functional/Work Level ADL/Self Care Yes Education Orthotics/Bracing/ Yes Splinting Manual Lymphatic Yes Drainage Eval/Re-Eval Yes Frequency Times per week 2 Duration Number of Weeks 4 Addendums This patient is a No candidate for social or vocational rehab ? Patient/Guardian Yes verbally acknowledges understanding of treatment program and consents to further treatment? Patient/Guardian Yes verbally acknowledges understanding of diagnosis, prognosis and goals for treatment? Eval Complexity PT Charges 28000 - High Complexity PHYSICIAN CERTIFICATION: I certify the specified therapy services for Meri Cole are required, authorized, and reviewed every 30 days.
== END 2025-05-05 23:59 | disposition home or self-care (01) ==
LOC: PT 15:03
PROVIDERS: PCP Family Medicine; Visit Provider Internal Medicine Medical Oncology
DX: I89.0 Lymphedema, not elsewhere classified (principal)
CPT/HCPCS: 97163

== ENCOUNTER 2025-05-12 11:43 | Outpatient (CLI) | payer MEDICAID, SELFPAY ==
--- OUTSIDE RECORDS SUMMARY | 2025-03-18 06:20 | XMS_ITS | Encounter Summary ---
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 [place] [address] Phone: tel: fax: Referral ID Status Reason Start Date Expiration Date V isits Requested Visits Authorized [id number] Authorized 03/15/2025 03/15/2026 5 5 Encounter Details Date Type Department Care Team (Late st Contact Info) Description 03/18/2025 7:20 AM EDT - 03/18/2025 11:59 PM EDT Hospital Encounter [facility] [place] [address] Adryan Rowan MD [address] 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 of Occupat ional [facility] - Occupational Stress [...] in a mcfp (including now)? No 11/07/2023 [facility] IP Transportation Answer [...] EDT 5 exemestane (AROMASIN) 25 mg Oral TabletIndications :Invasive ductal carcinoma of breast, female, right (HCC),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),Right breast cancer with T3 tumor, >5 cm in greatest dimension (HCC) Take 1 Tablet by mouth daily. 90 Tablet 5 fluticasone furoate-vilantero L (BREO ELLIPTA) 200-25 mcg/dose Inhl Disk with DeviceIndications :Mild intermittent asthma, unspecified whether complicated Inhale 1 Puff into the lungs daily. 1 Each 6 4 fluticasone propionate (FLONASE) 50 mcg/actuation Nasl [place], Suspension 1 [place] by Nasal route daily. 1 Each 11 [...] 03/10/2025 2:43 PM EDT 5 03/25/20 25 documented as of this encounter Discharge Disposition Disposition Code Departure Means Destination Home or Self Care documented in this encounter Plan of Treatment Upcoming Encounters Date Type Department Care Team (Late st Contact Info) Description 05/19/2025 2:15 PM EST Office Visit [place] [phone] Sin Tran MD [address] [facility] [address] 06/08/2025 12:45 PM EST Procedure visit [facility] [address] [place] [address] Samm Ledesma, HAIR MIXER [address] [place] [address] 08/12/2025 10:40 AM EST Appointment [facility] Women's Wellness [facility] 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 GLUCOSE METER POC Routine 03/18/2025 7:2 3 AM EDT documented in this encounter Results * PET CT SKULL BASE TO MID THIGH (03/18/2025 8:38 AM EDT) Anatomical Region Laterality Modality Positron Emissio n Tomography (PET) 03/18/2025 8:38 AM EDT Impressions 03/18/2025 9:28 AM EDT New/worsening multifocal hypermetabolic intrathoracic lymphadenopathy and new hypermetabolic left scapular lesion, compatible with metastatic disease Narrative 03/18/2025 9:[address] SKULL BASE TO MID THIGH, 03/18/2025 8:38 AM CLINICAL HISTORY: C50.611-Malignant neoplasm of axillary tail of right female breast (HCC)-ICD-10-CM D05.11-Intraductal carcinoma in situ of right ygutnt-FWC-63-CM COMPARISON: PET/CT 11/09/2024. PROCEDURE COMMENTS: 14.7 mCi 18F-fluorodeoxyglucose (FDG) was administered I.V. Serum blood glucose at the time of the injection was 101 mg/dL. Uptake time was approximately 45 minutes. Scanning performed from the skull vertex to the mid thigh. As an integrated part of the study, noncontrast CT scanning performed for attenuation correction and localization purposes. FINDINGS: Normal distribution of physiologic background activity was present including gastrointestinal, genitourinary, cardiovascular, neurologic systems. Index activity in the right lobe of the liver was 2.9 SUV max. Head and Neck: No hypermetabolic lesion. Chest: Changes of right mastectomy and alexia dissection are redemonstrated. Mild uptake related to skin thickening and subcutaneous stranding of the right anterior chest wall may be posttreatment related. There are new hypermetabolic right axillary/right lateral chest wall lymph nodes. An example measures 9 x 7 mm along the right lateral chest wall with a maximum SUV of 4.5. Left internal mammary chain and prevascular lymphadenopathy has progressed with a current maximum SUV of 8.0 (previously 4.2). Left supraclavicular lymphadenopathy has also progressed, maximum SUV 4.0 (previously 2.7). There is a newly hypermetabolic left subpectoral node, maximum SUV 3.6. There is no suspicious lung nodule. Subpleural opacities in the lateral right upper lobe likely reflect posttreatment change. Abdomen and pelvis: No hypermetabolic lesion. Previous cholecystectomy and sleeve gastrectomy. Thoracic spinal stimulators in place. Musculoskeletal: New hypermetabolic focus of the left scapular spine with a corresponding osteolytic defect evident on the localizing CT, maximum SUV 4.1. Procedure Note Vadim Chin MD - 03/18/[address] SKULL BASE TO MID THIGH, 03/18/2025 8:38 AM CLINICAL HISTORY: C50.611-Malignant neoplasm of axillary tail of rightfemale breast (HCC)-ICD-10-CM D05.11-Intraductal carcinoma in situ of right nztczw-YHK-78-CM COMPARISON: PET/CT 11/09/2024. PROCEDURE COMMENTS: 14.7 mCi 18F-fluorodeoxyglucose (FDG) wasadministered I.V. Serum blood glucose at the time of the injection was 101 mg/dL. Uptaketime was approximately 45 minutes. Scanning performed from the skull vertex to themid thigh. As an integrated part of the study, noncontrast CT scanningperformed for attenuation correction and localization purposes. FINDINGS: Normal distribution of physiologic background activity waspresent including gastrointestinal, genitourinary, cardiovascular, neurologicsystems. Index activity in the right lobe of the liver was 2.9 SUV max. Head and Neck: No hypermetabolic lesion. Chest: Changes of right mastectomy and alexia dissection areredemonstrated. Mild uptake related to skin thickening and subcutaneous stranding of theright anterior chest wall may be posttreatment related. There are newhypermetabolic right axillary/right lateral chest wall lymph nodes. An example measures 9x 7 mm along the right lateral chest wall with a maximum SUV of 4.5. Leftinternal mammary chain and prevascular lymphadenopathy has progressed with acurrent maximum SUV of 8.0 (previously 4.2). Left supraclavicular lymphadenopathyhas also progressed, maximum SUV 4.0 (previously 2.7). There is a newly hypermetabolic left subpectoral node, maximum SUV 3.6. There is nosuspicious lung nodule. Subpleural opacities in the lateral right upper lobe likelyreflect posttreatment change. Abdomen and pelvis: No hypermetabolic lesion. Previous cholecystectomyand sleeve gastrectomy. Thoracic spinal stimulators in place. Musculoskeletal: New hypermetabolic focus of the left scapular spine witha corresponding osteolytic defect evident on the localizing CT, maximum SUV4.1. IMPRESSION: New/worsening multifocal hypermetabolic intrathoracic lymphadenopathy andnew hypermetabolic left scapular lesion, compatible with metastatic disease us Adryan Rowan MD IMG PET ORDERABLES Final Resul t * (ABNORMAL) GLUCOSE METER POC (03/18/2025 7:23 AM EDT) [facility] Glucose Meter POC 101(H) 70 - 100 mg/dL 03/18/2025 7:26 AM EDT [facility] Sample Type Capillary 03/18/2025 7:26 AM EDT [facility] Patient Status Non-Critical Patient 03/18/2025 7:26 AM EDT [facility] Blood BLOOD SPECIMEN / Unknown 03/18/2025 7:23 AM EDT 03/18/2025 7:26 AM EDT us Adryan Rowan MD POINT OF CARE TEST ORDERABLES Final Result [facility] [address] [place] [address] documented in this encounter Visit Diagnoses Diagnosis 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 Carcinoma in situ of breast documented in this encounter Administered Medications Inactive Administered Medications - up to 1 most recent administrations Medication Order MAR Action Action Date Dose Rate Site fluorodeoxyglucose (FDG) injection 14.7 millicurie 14.7 millicurie, Intravenous, ONCE PRN, 1 dose, Starting on Pari 03/18/25 at 0734, Until Pari 03/18/25 at 0735, Radiography/Imaging, Radiology Procedure, Administration dose must be within 10% of the ordered dose for radiopharmaceutical medications., Radiology Given 03/18/2025 7:35 AM EDT 14.7 millicuries sodium chloride 0.9% syringe Intravenous, ONCE PRN, 1 dose, Starting on Pari 03/18/25 at 0734, Until Pari 03/18/25 at 0735, Line Care, Flush peripheral lines every 12 hours, central lines every 8 hours, and after IV medication, Radiology Given 03/18/2025 7:35 AM EDT 10 mL documented in this encounter Additional Health Concerns Assessment Noted Time PHQ-9 Depression Total Score: 17 024 8:39 AM EST PHQ-2 Depression Total Score: 5 07/07/20 24 8:39 AM EST documented as of this encounter Care Teams It Help Desk Manager Relationship Specialty Start Date End Date Ayush Marrero MD [address] [place] [id number] PCP - General Family Medicine 03/09/25 Arlyn Schmidt MD [address] [place] [address] Consulting Physician Internal Medicine-Endocrinology, Diabetes & Metabolism 11/28/20 Tacho Echavarria MD 1 [place] [address] Internal Medicine-Medical Oncology 11/12/23 Matt Ulrich MD 1 [place] [address] Surgery-Surgical Oncology 12/04/23 Eze Brock Pastoral Care 12/13/23 Annette Walker MSW Warehouse Specialist 05/13/24 Batool Celis MD 1 [facility] [place] [address] Radiation Oncologist Radiology-Radiation Oncology 06/08/24 documented as of this encounter
--- OUTSIDE RECORDS SUMMARY | 2025-03-24 12:33 | XMS_ITS | Encounter Summary ---
Author Organization [place] [address] Care Team Providers Care Appraisal Manager Name Role Phone Arlyn Schmidt MD Unavailable [phone] Tacho Echavarria MD Unavailable [phone] Matt Ulrich MD Unavailable [phone] Eze Brock Unavailable Annette Walker HYDROBLASTER Unavailable [phone] Batool Celis MD Unavailable [phone] Ayush Marrero MD Primary Care Provider [phone] Reason for Visit * Reason Comments Follow-up Breast Cancer I would like to revi ew my PET scan results and I would like to move my care to Dr Rowan closer to me in [place]. Can you please speak with him? Encounter Details Date Type Department Care Team (Latest Contact Info) Description 03/24/2025 1:33 PM EDT - 03/24/2025 11:59 PM EDT Hospital Encounter [facility] [place] [address] Tacho Echavarria MD [address] [place] [address] Invasive ductal carcinoma of breast, female, right (HCC); 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); Malignant neoplasm of right female breast, unspecified estrogen receptor status, unspecified site of breast (HCC); Port-A-Cath in place; Encounter for antineoplastic chemotherapy; Encounter for antineoplastic immunotherapy; Diarrhea, unspecified type Discharge Disposition: Home or Self Care Social [...] In the past 12 months has e [place], gas, oil, or water [facility] threatened to shut off services in your [...] Date Recorded PHQ-2 Total Score 5 07/07/2024 [facility] [place] of Occupat ional Health - Occupational Stress [...] in a snf (including now)? No 11/07/2023 [facility] IP Transportation Answer D ate [...] Sign Reading Time Taken Comments Blood Pressure 123/84 03/24/2025 1:35 PM EDT Pulse 85 03/24/2025 1:35 PM EDT Temperature 36.7 C (98.1 F) 03/24/2025 1:35 PM EDT Respiratory Rate 16 03/24/2025 1:35 PM EDT Oxygen Saturation 98% 03/24/2025 1:35 PM EDT Inhaled Oxygen Concentration - - Weight 81.6 kg (180 lb) 03/24/2025 1:35 PM EDT Height 160 cm (5' 3 ) 03/24/2025 1:35 PM EDT Body Mass Index 31.89 03/24/2025 1:35 PM EDT documented in this encounter Functional [...] hours as needed for Wheezing. 1 Each anastrozole (ARIMIDEX) 1 mg Oral TabletIndications :Invasive [...] 4 fluticasone propionate (FLONASE) 50 mcg/actuation Nasl [place], Suspension 1 [place] by Nasal route daily. 1 Each 4 [...] Progress Notes * Tacho Echavarria MD - 03/24/2025 1:40 PM EDT Images from the original note were not included. Patient: Meri Cole CSN: [id number] Date of : 1965 Age: 59 y.o. Date of Service: 03/24/2025 HEMATOLOGY/ONCOLOGY FOLLOW UP VISIT Primary Equipment Service Lead & Oncologist: Tacho Echavarria MD. Patient Care Team: Ayush Marrero MD as PCP - General (Family Medicine) Arlyn Schmidt MD as Consulting Physician (Internal Medicine-Endocrinology, Diabetes & Metabolism) Tacho Echavarria MD (Internal Medicine-Medical Oncology) Matt Ulrich MD (Surgery-Surgical Oncology) Eze Brock as Pastoral Care Annette Walker, ARACELI as Sponge Clipper Batool Celis MD as Radiation Oncologist (Radiology-Radiation Oncology) [address]nd [address] 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 Breast, right, 6:00, Invasive ductal carcinoma, grade 3 ER 80%, AK 11%, Her2 IHC 1+ B. Breast, right, 5:00 Invasive ductal carcinoma grade 3 ER 92%, AK 55%, Her2 negative 11/11/2023 - Consult Initial consultation with surgeon-Dr. Adryan Ulrich 11/11/2023 - Genetics 69 gene panel testing results were negative. 12/05/2023 - Chemotherapy Daniel-adjuvant dose dense Misbah/Cytoxan (AC) x 4 -> [...] lymph nodes, positive for metastatic carcinoma (13/13). Invasive ductal carcinoma, grade 3 (block A17): Breast Biomarker Reporting Summary for ER, PgR and HER2 TEST RESULT % of nuclei staining/Intensity/Lulu Score ER by IHC Positive 90% / 3+ / 8 PgR by IHC Positive 45% / 3+ / 7 HER2 by IHC Negative 1+ 07/23/2024 - Pathology JOI ORDERED: Positive cell free DNA 08/03/2024 - 06/07/2025 Chemotherapy Anastrozole 1mg po daily x 10 yr + Verzenio 50mg po bid and titrate up to GI tolerance for 2 yr planned (Persia-E regimen) 10/2024 - changed to Aromasin d/t [...] with patient. Patient andcare team received copy. 03/18/2025 - Referrals 03/18/25 - PET with multifocal hypermetabolic intrathoracic lymphadenopathy and new hypermetabolic left scapular lesion, compatible with metastatic disease -> pt would like to move care to [facility], Dr Raleigh Rowan for palliative frontline tx per NCCN guidelines Right breast cancer with T3 tumor, >5 [...] CalcPt Dosage Given to Date in Gy [id number] Session Dosage Given in Gy [id number] Reference Point ID LN Boost RP Dosage Given to Date in Gy 10 Session Dosage Given in Gy [id number] Reference Point ID [id number] ISO Dosage Given to Date in Gy [id number] Session Dosage Given in Gy [id number] Plan ID BH Nd Boost Plan Name [...] GASTRECTOMY ; Surgeon: Marcus Perez MD; Location: [facility] MAIN OR; Service: General IR 2 [...] SACRAL SINGLE LVL 08/03/[address] [facility] SPINE CTR IMAGING IR PORT PLACEMENT EQUAL OR > 5 YEARS 11/29/2023 IR PORT PLACEMENT EQUAL OR > 5 YEARS 11/29/[address] [facility] IR LUMBAR DISC SURGERY 09/11/2012 LUMBAR LAMINECTOMY & DISCECTOMY L4-5 LEFT ; Surgeon: Hetal Borden MD; MASTECTOMY Right 07/06/2024 Right modified radical mastectomy; Surgeon: Matt Ulrich MD; Location: [facility] MAIN OR; Service:General SPINE SURGERY N/A 01/04/2021 PAIN PUMP PERMANENT IMPLANT; Surgeon: Munir Hilton MD; Location: [facility] MAIN OR; Service: Pain Management THORACIC SPINE SURGERY N/A 02/24/2020 SPINAL CORD STIMULATOR IMPLANT; Surgeon: Munir Hilton MD; Location: [facility] MAIN OR; Service: Pain Management TONSILLECTOMY UPPER GASTROINTESTINAL ENDOSCOPY UPPER GASTROINTESTINAL ENDOSCOPY N/A 01/26/2015 ESOPHAGOGASTRODUODENOSCOPY with biopsy and davis dilation; Surgeon: Stone Cronin MD; Location: [facility]; Service: Endoscopy FAMILY HISTORY Family History [...] Complaint Patient presents with Follow-up Breast Cancer I would like to review my PET scan results and I would like to move my care to Dr Rowan closer to [place]. Can you please speak with him? Ms.Stefanie Devorah Cole comes in today (03/24/2025) for an follow up, s/p pre op ddAC/Taxane chemo for her high risk ER/AK positive large RIGHT BREAST Carcinoma. She has had significant barriers to self case and social support, here for assistance and updates on rest of her care plan. Aware about PET results, since now living an hour and half away, came to request transfer of care to [facility] clinic ofDR Adryan Rowan closer to her home in [place], [place]. Update (03/24/2025): Ms Cole comes in today reporting now new pain or ROBLEDO, does have intermittent discomfort (2/10) over left scapular border. Came to review the sties of PET avid uptake on the 03/18 PET showing disease progression. Reports wt stable per home scale and [...] compliance nad help with use of Cymbalta. Seeing Dr Adryan Rowan at [facility] and wanting to request transfer of [facility] records to oncology clinic there. ECOG PS: 1 MEDICATIONS Current Outpatient Medications Medication albuterol (PROVENTIL HFA;VENTOLIN HFA) 90 mcg/actuation Inhl [...] Device fluticasone propionate (FLONASE) 50 mcg/actuation Nasl [place], Suspension Inhalational Spacing Device (AEROCHAMBER MV) Misc [...] 4 mg Oral Tablet UNABLE TO FIND abemaciclib (VERZENIO) 100 mg Oral Tablet exemestane (AROMASIN) 25 mg Oral Tablet No current facility-administered medications for this encounter. Facility-Administered Medications Ordered in Other Encounters Medication Dose Route Frequency Last Rate Last Admin heparin flush 100 unit/mL injection 500 Units 500 Units Intravenous PRN 500 Units at 03/24/25 1331 sodium chloride 0.9 % sterile syringe Intravenous PRN 10 mL at 03/24/25 1329 sodium chloride 0.9% syringe Intravenous PRN 10 mL at 03/24/25 1330 PHYSICAL EXAM Vitals: 03/24/25 1335 BP: 123/84 BP Location: Left arm Patient Position: Sitting Pulse: 85 Resp: 16 Temp: 98.1 ??F (36.7 ??C) TempSrc: Oral SpO2: 98% Weight: 180 lb (81.6 kg) Height: 5' 3 (1.6 m) Wt Readings from Last 6 Encounters: 03/24/25 180 lb (81.6 kg) 02/10/25 185 lb 6.4 oz (84.1 kg) 02/04/25 200 lb 14.4 oz (91.1 kg) 02/04/25 199 lb 4.8 oz (90.4 kg) 01/15/25 190 lb 4.8 oz (86.3 kg) 01/06/25 187 lb 1.6 oz (84.9 kg) Physical Exam Vitals reviewed. Constitutional: Appearance: [...] and Affect: Mood is anxious. Affect is not labile or tearful. Speech: Speech normal. Behavior: Behavior normal. Behavior is not agitated, aggressive or hyperactive. Thought Content: Thought content is not paranoid or delusional. Thought content does not include suicidal ideation. Thought content does not include homicidal or suicidal plan. Cognition and Memory: Cognition normal. Memory is not impaired. LABORATORY DATA Results for orders placed or performed during the hospital encounter of 03/24/25 CBC WITH DIFF Result Value Ref Range WBC 3.9 3.7 - 10.3 x10(3)/mcL RBC 2.92 (L) 3.90 - 5.20 x10(6)/mcL Hgb 9.7 (L) 11.2 - 15.7 g/dL Hct 28.2 (L) 34.0 - 45.0 % MCV 96.6 80.0 - 100.0 fL MCH 33.2 26.0 - 34.0 pg MCHC 34.4 30.7 - 35.5 g/dL RDW 13.7 <=14.9 % Platelet 197 155 - 369 x10(3)/mcL MPV 8.9 8.8 - 12.5 fL Neut # Prelim 2.3 1.6 - 6.1 x10(3)/mcL Neut Percent 60.4 % Imm Gran% 0.3 % Lymph Percent 28.2 % [place] Percent 8.5 % Eos Percent 1.3 % Baso Percent 1.3 % Neut # 2.3 1.6 - 6.1 x10(3)/mcL IMMGRAN# 0.0 0.0 - 0.1 x10(3)/mcL Lymph # 1.1 (L) 1.2 - 3.9 x10(3)/mcL [place] # 0.3 0.3 - 0.9 x10(3)/mcL Eos# 0.1 0.0 - 0.5 x10(3)/mcL Baso # 0.1 0.0 - 0.1 x10(3)/mcL COMPREHENSIVE METABOLIC PANEL Result Value Ref Range Sodium 140 136 - 145 mmol/L Potassium 3.8 3.5 - 5.0 mmol/L Chloride 104 98 - 107 mmol/L Total CO2 23 22 - 29 mmol/L Anion Gap 13 7 - 16 mmol/L Calcium 9.1 8.6 - 10.4 mg/dL Glucose Lvl 114 (H) 70 - 99 mg/dL BUN 14 6 - 20 mg/dL Creatinine 0.81 0.51 - 1.30 mg/dL Albumin 3.9 3.5 - 5.2 gm/dL Total Protein 6.4 6.4 - 8.3 gm/dL Bili Total 0.4 0.2 - 1.3 mg/dL ALT 8 <=41 U/L AST 14 <=40 U/L Alk Phos 146 (H) 36 - 123 U/L eGFR (CKD-EPIcr 2020) 84 >=60 mL/min/1.73 m2 *Note: Due to a large number of results and/or encounters for the requested time period, some results have not been displayed. A complete set of results can be found in Results Review. Rest seen in EMR DIAGNOSTIC RADIOLOGY OF RELEVANCE MRI BRAIN ATTN PITUITARY W WO CONTRAST 01/06/2024 CLINICAL HISTORY: G43.719-Chronic migraine without aura, intractable, without status [id number]. COMPARISON: Multiple priors with the latest MRI [...] with the diagnostic CT of the chest. 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 PROCEDURE COMMENTS: 14.7 mCi [...] on the localizing CT, maximum SUV 4.1. Impression: New/worsening multifocal hypermetabolic intrathoracic lymphadenopathy and new hypermetabolic left scapular lesion, compatible with metastatic disease IMPRESSION Meri Cole is a 59 y.o. female who is post menopausal and presetting with cT3, N3 R breast invasive ductal ca with regional spread, noted to have high risk residual tumor (ypT3, yN3a, Mx) and RCB-III tumor response post daniel adjuvant chemo as above. Now s/p adjuvant RT, and then AI + CDK4/6 inhibitor and bone targeting tx per NCCN guidelines. By Mar 2025 with new multifocal mets disease on PET, desirous to continue palliative treatments to prolong survival. MEDICAL DECISION MAKING Stage IV RIGHT BREAST IDC [ypT3, pN3a [RCB -III] and now M1- d/w pt her imaging and tumor markers, having unfortunately disease progression. Role of further palliative anti tumor tx, explained that disease is treatable but unlikely curable. Tx per NCCN guidelines. She wants to move care closer to home with Dr Marcus Rowan and hence a msg was left for him to coordinate care. Taxane myalgias/chronic pain syndrome - much improved, continue expectant follow up and should improve over time, no suspicion for underlying connective tissue disorder. Anti tumor tx: can stop CDK4/6 inhibitor and AI. If repeat biopsy is feasible, then using that tissue to guide therapy and make sure that tumor is still ER positive would be valuable. IF ER positive,consider monthly IM Faslodex and also check for ESR1 status and PIK3Ca mutation guided therapy. Defer testing for cell free DNA to Dr Rowan as pt moving care to his clinic. Hx pituitary tumor, migraines - seen by outside facility Neurosurgeon (Dr Benoit Duke at [facility]) and no need for surgical resection now, surveillance plan defined in his note of 02/24/24 noted Chemo induced anemia - HGB 9.7 now, cont 1 tab MVI po daily, asked for borderline VIT B12 to start VIT B12 1000 mcg po daily otc PE/ Prothrombin gene carrier - obtaining records from [facility], meanwhile stay on FDAapproved dosing of JUSTYN Xarelto (rivaroxaban) and drug info, teaching on fall prevention and sx of bleeding to call our clinic d/w her Hypercoagulability, familial - d.w her need to d/w offsprings and siblings, each with 50% odds of having acquired this factor II mutation Venous access: Port in place - continues to function today, PORT care d/w her Cancer susceptibility - seen by cancer genetics, negative results on breast ca gene panel (records in EMR) Major depression, chroic - met pastoral care, SW and confirm no self harm plans for now and is 100%complaint to anti breast ca tx, continue with Cymbalta 60mg po daily and follow up with Psych MD Infection Screen - Negative. Consider getting seasonal FLU vaccine end of the month High Complexity Visit - All questions were answered over 35 mins today Disposition - P{RN as pt reports she is going to move care to Dr Marcus Rowan closer to home and we contacted him ([phone]) to proceed with care transfer and update on PET, see her sooner Please call if any questions about Mrs Cole's care. Tacho Echavarria MD Hematology and Medical Oncology [facility] [phone] Time-Based Billing Statement: I spent 42 minutes in the care of this patient on this calendar day. Activities performed during this time include: Reviewing labs, Reviewing imaging, Obtaining or reviewing history (separately obtained), Performingthe appropriate exam, Counseling and educating, Referring and communicating with another professional, Documenting clinical information in the EHR, Independent review and interpretation of imaging, and Care coordination The total time documented above did not include the following activities which were also performed on this calendar day: calling office of Dr Adryan ROWAN ([phone]) documented in this encounter Miscellaneous Notes * Addendum Note - Tacho Echavarria MD - 03/24/2025 1:40 PM EDTEncounter addended by: Tacho Echavarria MD on: 03/25/2025 12:55 PM Actions taken: Clinical Note Signed documented in this encounter Plan of Treatment Upcoming Encounters Date Type Department Care Team (Late st Contact Info) Description 05/19/2025 2:15 PM EST Office Visit [facility] [address] [address] [address] [place] [address] Sin Tran MD [address] [place] [id number] 06/08/2025 12:45 PM EST Procedure visit [facility] [address] [facility] [address] [place] [address] Samm Ledesma APRN [address] [facility] [address] [place] [address] 08/12/2025 10:40 AM EST Appointment [facility] [place] [address] Matt Ulrich MD [address] [place] [address] [place] [address] documented as of this encounter Goals Goal [...] [facility] Breast [facility] Not on track(2024 11:27 AM [...] Associated Diagnosis Comments CBC WITH DIFF STAT 03/24/2025 1:29 PM EDT Invasive ductal carcinoma of breast, female, right (HCC) COMPREHENSIVE METABOLIC PANEL STAT 03/24/2025 1:29 PM EDT Invasive ductal carcinoma of breast, female, right (HCC) documented in this encounter Results * (ABNORMAL) COMPREHENSIVE METABOLIC PANEL (03/24/2025 1:29 PM EDT) Sodium 140 136 - 145 mmol/L 03/24/2025 1:58 PM EDT [facility] Potassium 3.8 3.5 - 5.0 mmol/L 03/24/2025 1:58 PM EDT [facility] Chloride 104 98 - 107 mmol/L 03/24/2025 1:58 PM EDT [facility] Total CO2 23 22 - 29 mmol/L 03/24/2025 1:58 PM EDT [facility] Anion Gap 13 7 - 16 mmol/L 03/24/2025 1:58 PM EDT [facility] Calcium 9.1 8.6 - 10.4 mg/dL 03/24/2025 1:58 PM EDT [facility] Glucose Lvl 114(H) 70 - 99 mg/dL 03/24/2025 1:58 PM EDT [facility] BUN 14 6 - 20 mg/dL 03/24/2025 1:58 PM EDT [facility] Creatinine 0.81 0.51 - 1.30 mg/dL 03/24/2025 1:58 PM EDT [facility] Albumin 3.9 3.5 - 5.2 gm/dL 03/24/2025 1:58 PM EDT [facility] Total Protein 6.4 6.4 - 8.3 gm/dL 03/24/2025 1:58 PM EDT [facility] Bili Total 0.4 0.2 - 1.3 mg/dL 03/24/2025 1:58 PM EDT [facility] ALT 8 <=41 U/L 03/24/2025 1:58 PM EDT [facility] AST 14 <=40 U/L 03/24/2025 1:58 PM EDT [facility] Alk Phos 146(H) 36 - 123 U/L 03/24/2025 1:58 PM EDT [facility] eGFR (CKD-EPIcr 2020) 84 >=60 mL/min/1.7 3 m2 03/24/2025 1:58 PM EDT [facility] Comment:Estimated GFR was ca lculated using the CKD-EPIcr (2020) equation refit without race. The equation is recommended by the National Kidney Foundation - [place] Society of Nephrology Task Force. Blood VENOUS STRUCTURE / Unknown Port / Unknown 03/24/2025 1:29 PM EDT 03/24/2025 1:36 PM EDT Tacho Echavarria MD CHEMISTRY ORDERABLES Final Result [facility] [address] [place] [address] * (ABNORMAL) CBC WITH DIFF (03/24/2025 1:29 PM EDT) [facility] Signature WBC 3.9 3.7 - 10.3 x10(3)/mc L 03/24/2025 1:40 PM EDT [facility] RBC 2.92(L) 3.90 - 5.20 x10(6)/mc L 03/24/2025 1:40 PM EDT [facility] Hgb 9.7(L) 11.2 - 15.7 g/dL 03/24/2025 1:40 PM EDT [facility] Hct 28.2(L) 34.0 - 45.0 % 03/24/2025 1:40 PM EDT [facility] MCV 96.6 80.0 - 100.0 fL 03/24/2025 1:40 PM EDT [facility] MCH 33.2 26.0 - 34.0 pg 03/24/2025 1:40 PM EDT [facility] MCHC 34.4 30.7 - 35.5 g/dL 03/24/2025 1:40 PM EDT [facility] RDW 13.7 <=14.9 % 03/24/2025 1:40 PM EDT [facility] Platelet 197 155 - 369 x10(3)/mc L 03/24/2025 1:40 PM EDT [facility] MPV 8.9 8.8 - 12.5 fL 03/24/2025 1:40 PM EDT [facility] Neut # Prelim 2.3 1.6 - 6.1 x10(3)/mc L 03/24/2025 1:40 PM EDT [facility] Comment:Preliminary automate d absolute neutrophil count. Value may change if manual differential is indicated. Neut Percent 60.4 % 03/24/2025 1:40 PM EDT [facility] Comment:Neutrophils equals s egs plus bands Imm Gran% 0.3 % 03/24/2025 1:40 PM EDT [facility] Comment:Automated count of m etamyelocytes, myelocytes and promyelocytes. Lymph Percent 28.2 % 03/24/2025 1:40 PM EDT [facility] [place] Percent 8.5 % 03/24/2025 1:40 PM EDT [facility] Eos Percent 1.3 % 03/24/2025 1:40 PM EDT [facility] Baso Percent 1.3 % 03/24/2025 1:40 PM EDT [facility] Neut # 2.3 1.6 - 6.1 x10(3)/ L 03/24/2025 1:40 PM EDT [facility] Comment:Neutrophils equals s egs plus bands IMMGRAN# 0.0 0.0 - 0.1 x10(3)/mc L 03/24/2025 1:40 PM EDT [facility] Comment:Automated count of m etamyelocytes, myelocytes and promyelocytes. An absolute IG <0.1 is reported as 0.0. Lymph # 1.1(L) 1.2 - 3.9 x10(3)/ L 03/24/2025 1:40 PM EDT [facility] [place] # 0.3 0.3 - 0.9 x10(3)/mc L 03/24/2025 1:40 PM EDT [facility] Eos# 0.1 0.0 - 0.5 x10(3)/ L 03/24/2025 1:40 PM EDT [facility] Baso # 0.1 0.0 - 0.1 x10(3)/ L 03/24/2025 1:40 PM EDT [facility] Blood VENOUS STRUCTURE / Unknown Port / Unknown 03/24/2025 1:29 PM EDT 03/24/2025 1:35 PM EDT Tacho Echavarria MD HEMATOLOGY ORDERABLES Final Result [facility] [address] [place] [address] documented in this encounter Visit Diagnoses Diagnosis Invasive ductal carcinoma of breast, female, right (HCC) 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) Malignant neoplasm of right female breast, unspecified estrogen receptor status, unspecified site of breast (HCC) Port-A-Cath in place Other postprocedural status Encounter for antineoplastic chemotherapy Encounter for antineoplastic immunotherapy Diarrhea, unspecified type documented in this encounter Additional Health Concerns Assessment Noted Time PHQ-9 Depression Total Score: 17 024 8:39 AM EST PHQ-2 Depression Total Score: 5 07/07/20 24 8:39 AM EST documented as of this encounter Care Teams Appraisal Manager Relationship Specialty Start Date End Date Ayush Marrero MD [address] [place] [address] PCP - General Family Medicine 03/09/25 Arlyn Schmidt MD [address] [place], [place] [id number] Consulting Physician Internal Medicine-Endocrinology, Diabetes & Metabolism 11/28/20 Tacho Echavarria MD [address] [place] [address] Internal Medicine-Medical Oncology 11/12/23 Matt Ulrich MD [address] [place] [address] Surgery-Surgical Oncology 12/04/23 Eze Brock Pastoral Care 12/13/23 Annette Walker MSW Sponge Clipper 05/13/24 Batool Celis MD [address] [place] [address] Radiation Oncologist Radiology-Radiation Oncology 06/08/24 documented as of this encounter
--- OUTSIDE RECORDS SUMMARY | 2025-04-09 13:46 | XMS_ITS | Encounter Summary ---
Author Organization [place] [address] Care Team Providers Care Floorworker Name Role Phone Arlyn Schmidt MD Unavailable [phone] Tacho Echavarria MD Unavailable [phone] Matt Ulrich MD Unavailable [phone] Eze Brock Unavailable Annette Walker CONSTRUCTION MILLWRIGHT Unavailable [phone] Batool Celis MD Unavailable [phone] Ayush Marrero MD Primary Care Provider [phone] Reason for Referral * MRI/CAT Scan (Emergency) - Closed Specialty Diagnoses / Procedures Referred By Contac t Referred To Contact Radiology Diagnoses Intraductal carcinoma in situ of right breast Procedures MRI BRAIN ATTN PITUITARY W WO CONTRAST MRI BRAIN W WO CONTRAST Adryan Rowan MD [address] [facility] [address] [place] [address] Phone: tel: fax: [facility] [address] [place] [address] Phone: tel: Referral ID Status Reason Start Date Expiration Date Visits Re quested Visits Authorized [id number] Closed 03/22/2025 03/22/2026 1 1 Reason for Visit * MRI/CAT Scan (Emergency) - Closed Specialty Diagnoses / Procedures Referred By Van t Referred To Contact Radiology Diagnoses Intraductal carcinoma in situ of right breast Procedures MRI BRAIN ATTN PITUITARY W WO CONTRAST MRI BRAIN W WO CONTRAST Adryan Rowan MD [address] [facility] [address] [place] [address] Phone: tel: fax: [facility] [address] [place] [address] Phone: tel: Referral ID Status Reason Start Date Expiration Date Visits Re quested Visits Authorized [id number] Closed 03/22/2025 03/22/2026 1 1 Encounter Details Date Type Department Care Team (Late st Contact Info) Description 04/09/2025 2:46 PM EDT - 04/09/2025 11:59 PM EDT Hospital Encounter [facility] [address] [place] [address] Adryan Rowan MD [address] [facility] [address] [place] [id number] Intraductal carcinoma in situ of right breast [...] Recorded In the past 12 months has [employer], gas, oil, or water company threatened to [...] 5 07/07/2024 [facility] of Occupat ional [facility] - Occupational Stress Questionnaire Answer [...] in a fpc (including now)? No 11/07/2023 [facility] IP [...] 4 fluticasone propionate (FLONASE) 50 mcg/actuation Nasl Brutus, Suspension 1 Brutus by Nasal route daily. 1 Each 11 4 Inhalational Spacing Device (AEROCHAMBER MV) Misc Spacer [address] [facility].(Non-Drug; Combo Route) route as needed. [...] Description 05/19/2025 2:15 PM EST Office Visit [facility] [place] [address] [place] [address] [address] [place] [address] Sin Tran MD [address] [place] [address] [place] [address] 06/08/2025 12:45 PM EST Procedure visit [facility] [address] [facility] [address] [place] [address] Samm Ledesma, CAR SEAT COVERER [address] [facility] [address] [place] [address] 08/12/2025 10:40 AM EST Appointment [facility] Women's Wellness [place] One [facility] [place] [id number] Matt Ulrich MD [address] [place] [address] [address] [facility] [place] [address] documented as of this encounter Goals Goal Patient Goal Type Associated Problems Recent Progress Patient-Stated? Author Blood Pressure < 140/90 Blood Pressure 123/84(03/24 1:35 PM EDT) No Chetna Cedeno MD [facility] Breast Health On track(2024 11:27 AM EDT) No Jasmin Porter, RAUL Note: Patient acknowledges understanding of new diagnosis, plan of care, available resources and how to contact Nurse Navigator with any future questions or concerns. [facility] Breast Health Not on track(2024 11:27 AM EDT) No Jasmin Porter, RAUL Note: Patient will be compliant with monthly SBE and is aware of who to contact for any unusual or concerning findings. 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 - Note: Radiology results need to be interpreted within a comprehensive clinical context. If you have questions about the radiology report, please contact the office of the ordering clinician. Narrative 04/09/2025 3:57 PM EDT MRI BRAIN ATTN PITUITARY W WO CONTRAST 04/09/2025 3:35 PM CLINICAL HISTORY: D05.11-Intraductal carcinoma in situ of right [id number]-[id number]-20-CM. COMPARISON: CT brain 01/12/2024, MRI 01/06/2024 and dating back to 05/01/2018. PROCEDURE COMMENTS: Multiplanar sequences obtained with and without Gadolinium contrast as recorded in Epic.. Sequences include thin section precontrast and dynamic post contrast coronal T1 images through the sella. FINDINGS: Redemonstrated is a lesion along the superior aspect of the pituitary gland measuring approximately 9 mm across with a crescentic anterior T2 hyperintense component. This lesion otherwise appears filled by a well-circumscribed nodular area which is T2 hypointense and T1 hyperintense suggestive of a large intracystic nodule. No discernible internal enhancement. This is overall similar in size to recent priors and appears only slightly enlarged compared to 09/21/2020. Pituitary stalk is chronically shifted to the right. Optic chiasm is unremarkable. No acute infarct or midline shift. No hydrocephalus. No appreciable intraparenchymal mass. Unchanged 6 mm pineal cyst. The orbits, paranasal sinuses, and mastoids are grossly unremarkable. Procedure Note David Benavides MD - 04/09/2025 MRI BRAIN ATTN PITUITARY W WO CONTRAST 04/09/2025 3:35 PM CLINICAL HISTORY: D05.11-Intraductal carcinoma in situ of right [id number]-13-CM. COMPARISON: CT brain 01/12/2024, MRI 01/06/2024 and dating back to05/01/2018. PROCEDURE COMMENTS: Multiplanar sequences obtained with and withoutGadolinium contrast as recorded in Epic.. Sequences include thin section precontrastand dynamic post contrast coronal T1 images through the sella. FINDINGS: Redemonstrated is a lesion along the superior aspect of the pituitarygland measuring approximately 9 mm across with a crescentic anterior [id number] component. This lesion otherwise appears filled by a well-circumscribednodular area which is T2 hypointense and T1 hyperintense suggestive of a large intracystic nodule. No discernible internal enhancement. This is overallsimilar in size to recent priors and appears only slightly enlarged compared to 09/21/2020. Pituitary stalk is chronically shifted to the right. Opticchiasm is unremarkable. No acute infarct or midline shift. No hydrocephalus. No appreciable intraparenchymal mass. Unchanged 6 mm pineal cyst. The orbits, paranasal sinuses, and mastoids are grossly unremarkable. 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 - Note: Radiology results need to be interpreted within a comprehensiveclinical context. If you have questions about the radiology report, please contactthe office of the ordering clinician. us Adryan Rowan MD IMG MRI ORDERABLES Final Resul t documented in this encounter Visit Diagnoses Diagnosis Intraductal carcinoma in situ of right breast Carcinoma in situ of breast documented in this encounter Administered Medications Inactive Administered Medications - up to 1 most recent administrations Medication Order MAR Action Action Date Dose Rate Site gadoterate meglumine (DOTAREM) solution 18 mL 18 mL, Intravenous, ONCE PRN, 1 dose, Starting on Sat04/09/25 at 1514, Until Sat04/09/25 at 1527, Radiology Procedure, VESICANT , MRI (Contrasts) Given 04/09/2025 3:27 PM EDT 18 mL Left Arm sodium chloride 0.9% syringe Intravenous, ONCE PRN, 1 dose, Starting on Sat04/09/25 at 1514, Until Sat04/09/25 at 1527, Line Care, Flush peripheral lines every 12 hours, central lines every 8 hours, and after IV medication, MRI (Contrasts) Given 04/09/2025 3:27 PM EDT 10 mL Le ft Arm sodium chloride bacteriostatic 0.9 % injection 20 mL 20 mL, Intravenous, ONCE PRN, 1 dose, Starting on 04/09/25 at 1514, Until Sat04/09/25 at 1527, Line care, PRN Lock flush per protocol every shift and with IV meds., MRI (Contrasts) Given 04/09/2025 3:27 PM EDT 20 mL Left Arm documented in this encounter Additional Health Concerns Assessment Noted Time PHQ-9 Depression Total Score: 17 024 8:39 AM EST PHQ-2 Depression Total Score: 5 07/07/20 24 8:39 AM EST documented as of this encounter Care Teams Floorworker Relationship Specialty Start Date End Date Ayush Marrero MD [address] [place] [address] PCP - General Family Medicine 03/09/25 Arlyn Schmidt MD [address] [place] [address] Consulting Physician Internal Medicine-Endocrinology, Diabetes & Metabolism 11/28/20 Tacho Echavarria MD 1 [place] [id number] Internal Medicine-Medical Oncology 11/12/23 Matt Ulrich MD 1 [place], [place] [address] Surgery-Surgical Oncology 12/04/23 Eze Brock Pastoral Care 12/13/23 Annette Walker, ARACELI Economic Analyst 05/13/24 Batool Celis MD 1 [facility] [address] Radiation Oncologist Radiology-Radiation Oncology 06/08/24 documented as of this encounter
--- NOTE | 2025-05-12 11:47 | PC.NURSE ---
1147-collected labs via venipuncture stick in left ac with butterfly needle; pt to d/c home.
[2025-05-12 11:56] LABS: Hematocrit 32.0 % (37.0-47.0); Hemoglobin 10.5 g/dL (12.2-16.2); Immature Granulocytes % 0.3 %; Mean Corpuscular HGB Conc 32.8 g/dL (31.8-35.4); Mean Corpuscular Hemoglobin 30.7 pg (27.0-31.2); Mean Corpuscular Volume 93.6 fl (81-99); Nucleated Red Blood Cells % 0 %; Platelet Count 218 K/mm3 (142-424); Red Blood Count 3.42 M/mm3 (4.20-5.40); Red Cell Distribution Width-SD 41.4 fL; White Blood Count 6.1 K/mm3 (4.8-10.8)
--- OUTSIDE RECORDS SUMMARY | 2025-05-12 12:10 | XMS_ITS | Encounter Summary ---
Author [place] [address] Care Team Providers Care Mrb Engineer Name Role Phone Chetna Cedeno MD Primary Care Provider [phone] Arlyn Schmidt MD Unavailable [phone] Tacho Echavarria MD Unavailable [phone] Matt Ulrich MD Unavailable [phone] Eze Brock Unavailable Cheryl Nair RN Unavailable [phone] Annette Walker BOILER TESTER Unavailable [phone] Batool Celis MD Unavailable [phone] Ayush Marrero MD Primary Care Provider [phone] Encounter Details Date Type Department Care Team (Late st Contact Info) Description 09/11/2024 Lab Requisition [facility] [place] [address] Beata Kebede MD [address] [place] [address] Social History Tobacco Use Types Packs/Day Years [...] from your doctor or pharmacy? Never 11/07/2023 [facility] Utilities Answer Date Recorded In [...] Date Recorded PHQ-2 Total Score 5 07/07/2024 [facility] Occupational Stress Questionnaire Answer [...] in a intermediate (including now)? No 11/07/2023 [facility] IP Transportation Answer D ate [...] Description 05/19/2025 2:15 PM EST Office Visit [facility] [address] [facility] [place] [address] Sin Tran MD [facility] [place] [address] 06/08/2025 12:45 PM EST Procedure visit [facility] [address] [facility] [address] [place] [address] Samm Ledesma APRN [address] [place] [address] 08/12/2025 10:40 AM EST Appointment [facility] [place] [address] Matt Ulrich MD [address] [place] [address] [address] [place] [address] documented as of this encounter [...] EST) CASE REPORT Surgical Pathology Report Case: [id number] Authorizing Provider: Beata Kebede MD Collected: 09/11/2024 1313 Ordering Location: [facility] Received: 09/11/2024 1313 Pathologist: Diane Ellis MD Specimen: Breast, Request for cases [id number], [id number] slides to [facility]. 09/15/2024 12:14 PM EDT [facility] FINAL DIAGNOSIS Results will be scanned in this case as an addendum. 09/15/2024 12:14 PM EDT [facility] at 1338 EST EMBEDDED IMAGES 09/15/2024 12:14 PM EDT [facility] ADDENDUM Refer to Scanned [facility] Report for [id number] & [id number]. 09/15/2024 12:14 PM EDT [facility] Addendum electronically signed by Diane Ellis MD on 09/15/2024 at 1214 EDT Tissue BREAST STRUCTURE / Unknown 09/11/2024 1:13 PM EST 09/11/2024 1:13 PM EST us Beata Kebede MD PATHOLOGY ORDERABLES Edited R esult - [facility] [address] [place] [id number] documented in this encounter Visit Diagnoses Not on filedocumented in this encounter Additional Health Concerns Infection Onset Date Last Indicated Resolved Time COVID-19 09/04/2024 09/04/2024 09/24/2024 10:1 2 PM EDT Assessment Noted Time PHQ-9 Depression Total Score: 17 024 8:39 AM EST PHQ-2 Depression Total Score: 5 07/07/20 24 8:39 AM EST documented as of this encounter Care Teams Mrb Engineer Relationship Specialty [place] [address] [place] [address] PCP - General 06/21/10 03/08/25 Ayush Marrero MD [address] [place] [address] PCP - General Family Medicine 03/09/25 Arlyn Schmidt MD [address] [place], [place] [id number] Consulting Physician Internal Medicine-Endocrinology , Diabetes & Metabolism 11/28/20 Tacho Echavarria MD 1 [place], [place] [id number] Internal Medicine-Medical Oncology 11/12/23 Matt Ulrich MD 1 [place] [address] Surgery-Surgical Oncology 12/04/23 Eze Brock Pastoral Care 12/13/23 Cheryl Nair, RN Oncology Nurse Navigator 03/25/2412/13 Annette Walker, BOILER TESTER [place] 05/13/24 Batool Celis MD [address] [place] [address] Radiation Oncologist Radiology-Radiation Oncology 06/08/24 documented as of this encounter
--- OUTSIDE RECORDS SUMMARY | 2025-05-12 12:11 | XMS_ITS ---
Author Organization Emilee VELIZJude OD Address [facility] [address] [place], [place] [address] Phone Care Team Providers Care Riverboat Captain Name Role Phone Arlyn Schmidt MD Unavailable [phone] Tacho Echavarria MD Unavailable [phone] Matt Ulrich MD Unavailable [phone] Eze Brock Unavailable Annette Walker Unavailable [phone] Batool Celis MD Unavailable [phone] Ayush Marrero MD Primary Care Provider [phone] Active Problems * This document contains information received from the source organization and may not represent a complete record from that organization. Patient Care Coordination No te Formatting of this note migh t be different from the original. [facility] - Sin Tran MD Controlled [...] Functional capacity documented (EVERY VISIT)01/03/2022 [facility] [address] [place] [phone] [phone] [facility] [phone] AIS POA: 02/10/2025 josh as expected #[id number] Josh 08-05-2018 adm Josh 08-14-18 adm UDS 08-08-18 adm Care gap audit completed by Medina White RN on 01/01/2022. 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 [...] up to GI tolerance for2 yr planned (Reading-E regimen) Radiation therapy External beam radiotherapy to a total dose of 60 Gy; 50 Gy to right chest wall and regional lymph nodes including internal mammary + 10 Gy boost to the undissected nodes. Delivered in a total of 30 fractions Endocrine Therapy Arimidex started 10/08/24 + Verzenio. Changed to Aromasin give [facility] Oncology Timeline Oncology History Invasive ductal [...] to GI tolerance for 2 yr planned (Reading-E regimen) 10/2024 - changed to Aromasin d/t [...] General Health Continue follow-up with PCP and CLINICAL INFORMATICIST as directed Recommendations Self-care plan: What you [...] with your body,see your regular doctor, physician school office assistant, or nurse practitioner. If what you [...] excess. I doubt the patient has underlying [place]'s disease. We will proceed with the work-up [...]
--- OUTSIDE RECORDS SUMMARY | 2025-05-12 12:11 | XMS_ITS | Encounter Summary ---
Author Organization [place] [address] Care Team Providers Care Supervisor Pumping Station Name Role Phone Arlyn Schmidt MD Unavailable [phone] Tacho Echavarria MD Unavailable [phone] Matt Ulrich MD Unavailable [phone] Eze Brock Unavailable Annette Walker RIDES ATTENDANT Unavailable [phone] Batool Celis MD Unavailable [phone] Ayush Marrero MD Primary Care Provider [phone] Reason for Visit * Reason Onset Date Comments Information Only 04/09/2025 MRI order Encounter Details Date Type Department Care Team (Late st Contact Info) Description 04/09/2025 Telephone Cancer Care Medical Oncology [place], [place] [id number] Adryan Rowan MD [address] [facility] [address] [address] [place] [address] Information Only (MRI order ) [...] in a longterm (including now)? No 11/07/2023 [facility] IP Transportation Answer D [...] 12/06/2022 2:08 PM Macarena Hesnon CCMA * Because of a physical, mental [...] Miscellaneous Notes * Telephone Encounter - Ritika Gardy NA - 04/09/2025 2:33 PM EDT Reason for call: Jason with [facility] called stating that she has faxed over pts MRI order several times. Call placed to MRI and gave Jason their fax number for order to be faxed to them where they will upload it Gave Jason fax number provided as [phone] No further needs. documented in this encounter Plan of Treatment Upcoming Encounters Date Type Department Care Team (Late st Contact Info) Description 05/19/2025 2:15 PM EST Office Visit [facility] [address] [place] [address] [address] [place] [address] Sin Tran MD [address] [place] [address] 06/08/2025 12:45 PM EST Procedure visit [facility] [address] [facility] [address] [place] [address] Samm Ledesma CHOPPER FEEDER [address] [facility] [address] [place] [address] 08/12/2025 10:40 AM EST Appointment [facility] Women's Wellness [place] [address] Matt Ulrich MD [address] [place] [address] DR [address] [place] [address] documented as of this encounter [...] as of this encounter Care Teams Supervisor Pumping Station Relationship Specialty Start Date End Date Ayush Marrero MD [address] [place] [address] PCP - General Family Medicine 03/09/25 Arlyn Schmidt MD [address] [place] [address] Consulting Physician Internal Medicine-Endocrinology, Diabetes & Metabolism 11/28/20 Tacho Echavarria MD [address] [place] [id number] Internal Medicine-Medical Oncology 11/12/23 Matt Ulrich MD [address] [place] [id number] Surgery-Surgical Oncology 12/04/23 Eze Brock Pastoral Care 12/13/23 Annette Walker, RIDES ATTENDANT Poultry Hatchery Man 05/13/24 Batool Celis MD 1 [facility] [place] [address] Radiation Oncologist Radiology-Radiation Oncology 06/08/24 documented as of this encounter
--- OUTSIDE RECORDS SUMMARY | 2025-05-12 12:12 | XMS_ITS | Encounter Summary ---
Author Organization [place] [address] Care Team Providers Care Section Gang Worker Name Role Phone Arlyn Schmidt MD Unavailable [phone] Tacho Echavarria MD Unavailable [phone] Matt Ulrich MD Unavailable [phone] Eze Brock Unavailable Annette Walker SURVEILLANCE DIRECTOR Unavailable [phone] Batool Celis MD Unavailable [phone] Ayush Marrero MD Primary Care Provider [phone] Reason for Visit * Reason Comments Oncology Nurse Navigation Encounter Details Date Type Department Care Team (Late st Contact Info) Description 03/23/2025 Patient Outreach [facility] [place] [address] Shilpa Cline, RN Oncology Nurse [...] th e electric, gas, oil, or water [employer] threatened to shut off services in your [...] PHQ-2 Total Score 5 07/07/2024 [facility] of Occupat ional Health - [...] in a jail (including now)? No 11/07/2023 [facility] IP [...] Progress Notes * Shilpa Cline RN - 03/23/2025 3:07 PM EDT [...] has been seeing Dr. Adryan Rowan at [facility] [place] (medical oncology) Emotional Anxiety;Sadness;Stress;Gratitude;Nervousness Intervention: Patient is anxious to learn the plan. She knows she needs more treatment and is saddened and disappoointed. NN offered emotional support and active listening. NN will notify Annette in hospital social worker and Eze in patoral care for additional support. Follow-up Plan 03/24 Dr. Echavarria Onc NN will continue to follow patient. documented in this encounter Plan of Treatment Upcoming Encounters Date Type Department Care Team (Late st Contact Info) Description 05/19/2025 2:15 PM EST Office Visit [facility] [place] [address] [facility] [address] [place] [address] Sin Tran MD [address] [place] [address] 06/08/2025 12:45 PM EST Procedure visit [facility] [address] [facility] [address] [place] [address] Samm Ledesma, FINANCIAL PLANNING ADVISER [address] [facility] [address] [place] [address] 08/12/2025 10:40 AM EST Appointment [facility] Women's Wellness [place] [facility] [place] [address] Matt Ulrich MD [address] [place] [address] [address] [place] [address] documented as of this encounter Goals Goal [...] as of this encounter Care Teams Section Gang Worker Relationship Specialty Start Date End Date Ayush Marrero MD [address] [place] [address] PCP - General Family Medicine 03/09/25 Arlyn Schmidt MD [address] [place] [address] Consulting Physician Internal Medicine-Endocrinology, Diabetes & Metabolism 11/28/20 Tacho Echavarria MD 1 [place] [address] Internal Medicine-Medical Oncology 11/12/23 Matt Ulrich MD 1 [place] [address] Surgery-Surgical Oncology 12/04/23 Eze Brock Pastoral Care 12/13/23 Annette Walker, SURVEILLANCE DIRECTOR Gerentological Physiotherapist 05/13/24 Batool Celis MD 1 [facility] [place] [address] Radiation Oncologist Radiology-Radiation Oncology 06/08/24 documented as of this encounter
--- OUTSIDE RECORDS SUMMARY | 2025-05-12 12:12 | XMS_ITS | Encounter Summary ---
Author Organization [place] [address] Care Team Providers Care Advanced Clinical Specialist Name Role Phone Arlyn Schmidt MD Unavailable [phone] Tacho Echavarria MD Unavailable [phone] Matt Ulrich MD Unavailable [phone] Eze Brock Unavailable Annette Walker BIOFUELS PLANT SUPERINTENDENT Unavailable [phone] Batool Celis MD Unavailable [phone] Ayush Marrero MD Primary Care Provider [phone] Encounter Details Date Type Department Care Team (Late st Contact Info) Description 03/22/2025 Telephone Cancer Care Medical Oncology [place], [place] [id number] Tacho Echavarria MD [address] [place] [id number] Social History Tobacco Use Types Packs/Day Years [...] the past 12 months has th e [place], gas, oil, or water [place] [employer] threatened to shut off services in your [...] Score 5 07/07/2024 [facility] [place] of Occupat ional Health - Occupational Stress [...] a senior care (including now)? No 11/07/2023 [facility] IP Transportation Answer [...] that she is seeing Dr. Rowan at [facility] and he is managing her care. Teams message sent to RN to ask if follow up is still needed. Scheduled MD follow up on 03/24 at 1:40 with labs prior. * Telephone Encounter - Linda Sewell CNA - 03/22/2025 10:10 AM EDT Called patient but no VM set up, will try again this afternoon, Also sent [employer] message. * Telephone Encounter - Rosana Gupta [...] Description 05/19/2025 2:15 PM EST Office Visit [place] [address] [facility] [address] [place] [address] Sin Tran MD [address] [place] [address] 06/08/2025 12:45 PM EST Procedure visit [facility] [address] [facility] [address] [place] [address] Samm Ledesma, BREAKER UNIT ASSEMBLER [address] [place], [place] [address] 08/12/2025 10:40 AM EST Appointment [facility] Women's Wellness [place] [address] Matt Ulrich MD [address] [place] [address] [address] [place] [address] documented as of this encounter [...] documented as of this encounter Care Teams Advanced Clinical Specialist Relationship Specialty Start Date End Date Ayush Marrero MD [address] [place], [place] [phone] PCP - General Family Medicine 03/09/25 Arlyn Schmidt MD [address] [place], [place] [address] Consulting Physician Internal Medicine-Endocrinology, Diabetes & Metabolism 11/28/20 Tacho Echavarria MD 1 [place] [address] Internal Medicine-Medical Oncology 11/12/23 Matt Ulrich MD 1 [place], [place] [address] Surgery-Surgical Oncology 12/04/23 Eze Brock Pastoral Care 12/13/23 Annette Walker, ARACELI Carpenter Helper Hardwood Flooring 05/13/24 Batool Celis MD 1 [facility] [place] [address] Radiation Oncologist Radiology-Radiation Oncology 06/08/24 documented as of this encounter
--- OUTSIDE RECORDS SUMMARY | 2025-05-12 12:12 | XMS_ITS | Encounter Summary ---
Author Organization [place] [address] Care Team Providers Care Paste Up Artist Name Role Phone Arlyn Schmidt MD Unavailable [phone] Tacho Echavarria MD Unavailable [phone] Matt Ulrich MD Unavailable [phone] Eze Brock Unavailable Annette Walker INTERNET MARKETING CONSULTANT Unavailable [phone] Batool Celis MD Unavailable [phone] Ayush Marrero MD Primary Care Provider [phone] Encounter Details Date Type Department Care Team (Late st Contact Info) Description 03/23/2025 Social Work [facility] [place] [address] Annette Walker, INTERNET MARKETING CONSULTANT Social History Tobacco Use Types Packs/Day [...] Recorded In the past 12 months has [employer], oil, or [employer] threatened to shut off services in your [...] 07/07/2024 [facility] of Occupat ional [facility] - Occupational [...] in a fpc (including now)? No 11/07/2023 [facility] IP Transportation Answer D [...] - 03/23/2025 3:38 PM EDT 03/23/25 1538 Grinding Machine Tender Assessment Referred By Claudia THOMSON RN Disease/[place] Historical Interpreter Assignment Breast cancer Referral Location: Medical Oncology Reason for Referral Adjustment to illness/Financial Identified Needs Financial issues;Adjustment to illness Social Work Interventions Brief Couseling/Support;Education/Information;Financial/Efren POWER SYSTEM ENGINEER received referral from Claudia Cline RN that Patient could use emotional support regarding diagnosis of metastatic disease. POWER SYSTEM ENGINEER spoke with Patient and provided brief counseling/support to her emotionally. POWER SYSTEM ENGINEER allowed time for processing her disappointment and fear regarding the future. Patient is still residing a significant distance from [facility] and is not sure she will continue treatment at this location. POWER SYSTEM ENGINEER discussed options including the [employer]'s Lodging Program that could assist with lodging expenses if she needed to stay in [facility] for treatment. There are a limited number of free nights and then discounted nightly rate. Patient is continuing tele[facility]. Patient also reports taking her medication regularly to address her depression. Patient processed emotions regarding mortality. Patient will be in clinic tomorrow to meet with Dr. Echavarria. Patient requested any additional assistance for financial need. POWER SYSTEM ENGINEER explained Patient has exhausted several grants that are limited to one time but POWER SYSTEM ENGINEER will explore additional opportunities. documented in this encounter Plan of Treatment Upcoming Encounters Date Type Department Care Team (Late st Contact Info) Description 05/19/2025 2:15 PM EST Office Visit [address] [address] Sin Tran MD [address] [place] [id number] 06/08/2025 12:45 PM EST Procedure visit [facility] [address] [place] [address] Jamielorna Samm Dillon, LEYLA [address] [place] [address] 08/12/2025 10:40 AM EST Appointment [facility] Women's Wellness [facility] [place] [address] Matt Ulrich MD [address] [place] [address] [address] [place] [address] documented as of this encounter [...] any unusual or concerning findings. Breast [facility] Breast Health On track(2024 [...] documented as of this encounter Care Teams Paste Up Artist Relationship Specialty Start Date End Date Ayush Marrero MD [address] [place], [place] [phone] PCP - General Family Medicine 03/09/25 Arlyn Schmidt MD [address] [place], [place] [address] Consulting Physician Internal Medicine-Endocrinology, Diabetes & Metabolism 11/28/20 Tacho Echavarria MD 1 [place] [address] Internal Medicine-Medical Oncology 11/12/23 Matt Ulrich MD 1 [place] [address] Surgery-Surgical Oncology 12/04/23 Eze Brock Pastoral Care 12/13/23 Annette Walker, ARACELI Historical Interpreter 05/13/24 Batool Celis MD 1 [facility] [address] Radiation Oncologist Radiology-Radiation Oncology 06/08/24 documented as of this encounter
--- OUTSIDE RECORDS SUMMARY | 2025-05-12 12:12 | XMS_ITS | Clinical Summary ---
Author Organization [facility] Address [address] [place] [address] Phone Care Team Providers Care Wind Plant Manager Name Role Phone Chetna Cedeno MD Primary Care Provider [phone] Allergies Active Allergy Reactions Criticality Noted Date [...] patient's age to complete this topic Insurance [facility] MEDICAID Care Teams Wind Plant Manager Relationship Specialty Start Date End Date Chetna Cedeno MD [facility] [address] [place] [address] PCP - General Family Medicine 01/02/25
--- OUTSIDE RECORDS SUMMARY | 2025-05-12 12:12 | XMS_ITS | Encounter Summary ---
[place] [address] Care Team Providers Care Finance Analyst Name Role Phone Arlyn Schmidt MD Unavailable [phone] Tacho Echavarria MD Unavailable [phone] Matt Ulrihc MD Unavailable [phone] Eze Brock Unavailable Annette Walker LEARNING SUPPORT SERVICES DIRECTOR Unavailable [phone] Batool Celis MD Unavailable [phone] Ayush Marrero MD Primary Care Provider [phone] Encounter Details Date Type Department Care Team (Late st Contact Info) Description 03/24/2025 Telephone [facility] Care Medical Oncology [place], [place] [id number] Tacho Echavarria MD [address] [place] [address] [id number] Social History Tobacco Use Types Packs/Day Years [...] your doctor or pharmacy? Never 11/07/[address] [facility] Utilities Answer Date Recorded In the past 12 months has th e [employer], gas, oil, or water [facility] threatened to shut off services in your [...] 5 07/07/2024 [facility] of Occupat ional Health - Occupational Stress [...] [facility] IP Transportation Answer D [...] Gupta RN - 03/24/2025 3:52 PM EDT Doochoo message sent asking for records from [facility]. documented in this encounter Plan of Treatment Upcoming Encounters Date Type Department Care Team (Late st Contact Info) Description 05/19/2025 2:15 PM EST Office Visit [address] [address] Sin Tran MD [address] [place] [address] 06/08/2025 12:45 PM EST Procedure visit [facility] [address] [facility] [address] [place] [address] Samm Ledesma APRN [address] [facility] [address] [place] [address] 08/12/2025 10:40 AM EST Appointment [facility] Women's Wellness [facility] [place] [address] Matt Ulrich MD [address] [place] [address] [address] [place] [address] documented as of this encounter [...] documented as of this encounter Care Teams Finance Analyst Relationship Specialty Start Date End Date Ayush Marrero MD [address] [place] [address] PCP - General Family Medicine 03/09/25 Arlyn Schmidt MD [address] [place] [address] Consulting Physician Internal Medicine-Endocrinology, Diabetes & Metabolism 11/28/20 Tacho Echavarria MD 1 [place] [address] Internal Medicine-Medical Oncology 11/12/23 Matt Ulrich MD 1 [place] [address] Surgery-Surgical Oncology 12/04/23 Eze Brock Pastoral Care 12/13/23 Annette Walker, LEARNING SUPPORT SERVICES DIRECTOR Legal Analyst 05/13/24 Batool Celis MD 1 [facility] [place] [address] Radiation Oncologist Radiology-Radiation Oncology 06/08/24 documented as of this encounter
--- OUTSIDE RECORDS SUMMARY | 2025-05-12 12:13 | XMS_ITS | Encounter Summary ---
Author Organization [place] [address] Care Team Providers Care Map Plotter Name Role Phone Arlyn Schmidt MD Unavailable [phone] Tacho Echavarria MD Unavailable [phone] Matt Ulrich MD Unavailable [phone] Eze Brock Unavailable Annette Walker CASH REGISTER SERVICER Unavailable [phone] Batool Celis MD Unavailable [phone] Ayush Marrero MD Primary Care Provider [phone] Reason for Visit * Reason Onset Date Comments Botox Injection 04/27/2025 Due 06/02/25 Encounter Details Date Type Department Care Team (Late st Contact Info) Description 04/27/2025 Patient Outreach [facility] Neurology [facility] [address] [place] [address] Samm Ledesma, GEOGRAPHY FACULTY MEMBER [address] [facility] [place] [address] [place] [address] Botox Injection (Due 06/02/25) Social History [...] 07/07/2024 [facility] - Occupational Stress Questionnaire Answer [...] a senior living (including now)? No 11/07/2023 [facility] IP Transportation Answer D ate Recorded [...] Staff - 04/27/2025 4:26 PM EDT APPROVED: [id number] AUTH #: [id number] DATES OF APPROVAL: 03/10/2025-03/10/2026 UNITS APPROVED: 800 units/ 4 visits BUY & BILL Please use referral #[id number] for scheduling. documented in this encounter Plan of Treatment Upcoming Encounters Date Type Department Care Team (Late st Contact Info) Description 05/19/2025 2:15 PM EST Office Visit [address] [place] [address] Sin Tran MD [address] [place] [address] 06/08/2025 12:45 PM EST Procedure visit [facility] [address] [facility] [address] [place] [address] Samm Ledesma APRN [address] [facility] [place] [address] [place] [address] 08/12/2025 10:40 AM EST Appointment [facility] Women's [facility] [place] [address] Matt Ulrich MD [address] [facility] [facility] [address] [place] [address] documented as of this encounter Goals Goal [...] with any future questions or concerns. Breast [facility] Breast Health Not on track(2024 11:27 [...] documented as of this encounter Care Teams Map Plotter Relationship Specialty Start Date End Date Ayush Marrero MD [address] [place] [address] PCP - General Family Medicine 03/09/25 Arlyn Schmidt MD [address] [place] [address] Consulting Physician Internal Medicine-Endocrinology, Diabetes & Metabolism 11/28/20 Tacho Echavarria MD 1 [place] [address] Internal Medicine-Medical Oncology 11/12/23 Matt Ulrich MD 1 [place] [address] Surgery-Surgical Oncology 12/04/23 Eze Brock Pastoral Care 12/13/23 Annette Walker, CASH REGISTER SERVICER Sourcing Consultant 05/13/24 Batool Celis MD 1 [facility] [place] [address] Radiation Oncologist Radiology-Radiation Oncology 06/08/24 documented as of this encounter
--- OUTSIDE RECORDS SUMMARY | 2025-05-12 12:13 | XMS_ITS | Encounter Summary ---
Author Organization [place] [address] Care Team Providers Care Cook Helper Vegetable Name Role Phone Chetna Cedeno MD Primary Care Provider [phone] Arlyn Schmidt MD Unavailable [phone] Tacho Echavarria MD Unavailable [phone] Matt Ulrich MD Unavailable [phone] Eze Brock Unavailable Cheryl Nair RN Unavailable [phone] Annette Walker VICE PRESIDENT LENDING Unavailable [phone] Batool Celis MD Unavailable [phone] Ayush Marrero MD Primary Care Provider [phone] Encounter Details Date Type Department Care Team (Late st Contact Info) Description 10/26/2024 Orders Only [facility] Physical Therapy [place] [address] [place] [address] [address] [place] [address] Shaunna Workman PT Social History [...] Never 11/07/2023 [facility] Utilities Answer Date Recorded In the [...] in a fci (including now)? No 11/07/2023 [facility] IP Transportation Answer D ate [...] 11/22/2024 10:36 AM EDRodolfo Albert RN * [place] Suicide Severity Rating Scale (Q shift for [...] Description 05/19/2025 2:15 PM EST Office Visit [place] [address] [place] [address] Sin Tran MD [address] [place] [address] 06/08/2025 12:45 PM EST Procedure visit [facility] [address] [facility] [address] [place] [address] Samm Ledesma APRN [address] [facility] [address] [place] [address] [place] [address] 08/12/2025 10:40 AM EST Appointment [facility] Women's Wellness [place] One [facility] [place] [address] Matt Ulrich MD [address] [place] [address] [place] [address] documented as of this encounter Goals Goal [...] as of this encounter Care Teams Cook Helper Vegetable Relationship Specialty [place] [address] [place] [address] PCP - General 06/21/10 03/08/25 Ayush Marrero MD [address] [place] [address] PCP - General Family Medicine 03/09/25 Arlyn Schmidt MD [address] [place] [address] Consulting Physician Internal Medicine-Endocrinology , Diabetes & Metabolism 11/28/20 Tacho Echavarria MD 1 [place] [address] Internal Medicine-Medical Oncology 11/12/23 Matt Ulrich MD 1 [place] [address] Surgery-Surgical Oncology 12/04/23 Eze Brock Pastoral Care 12/13/23 Cheryl Nair, RN Oncology Nurse Navigator 03/25/2412/13 Annette Walker, ARACELI Glass Breaker 05/13/24 Batool Celis MD [address] [facility] [address] Radiation Oncologist Radiology-Radiation Oncology 06/08/24 documented as of this encounter
--- OUTSIDE RECORDS SUMMARY | 2025-05-12 12:13 | XMS_ITS | Encounter Summary ---
Author Organization [place] [address] Care Team Providers Care Mine Promotor Name Role Phone Chetna Cedeno MD Primary Care Provider [phone] Arlyn Schmidt MD Unavailable [phone] Tacho Echavarria MD Unavailable [phone] Matt Ulrich MD Unavailable [phone] Eze Brock Unavailable Annette Walker PURCHASING CONTRACTING CLERK Unavailable [phone] Batool Celis MD Unavailable [phone] Ayush Marrero MD Primary Care Provider [phone] Reason for Visit * Reason Comments Pharmacy Oncology Management Abemaciclib Encounter Details Date Type Department Care Team (Latest Contact Info) Description 02/25/2025 Specialty Pharmacy [facility] [address] [place] [address] Annette Renee CPhT Pharmacy Oncology [...] Total Score 5 07/07/2024 [facility] [place] of Occupat ional Health - Occupational Stress [...] a care home (including now)? No 11/07/2023 [facility] IP Transportation [...] Stover RPH - 02/25/2025 10:28 AM EDT [facility] - Care Plan and Refill Review Refill questions and refill history verified. Last assessment 12/25/24. No reassessment needed at this time. Medhat Stover RPH Specialty Pharmacist * Madalyn Rivas RPH - 02/25/2025 10:28 AM EDT [facility] Per chart review patient will [...] Description 05/19/2025 2:15 PM EST Office Visit [place] [address] [place] [address] [place] [address] [place] [address] 06/08/2025 12:45 PM EST Procedure visit [facility] [address] [facility] [address] [place] [address] Samm Ledesma, HUMAN RESOURCE ASSISTANT [address] [facility] [address] [place] [address] 08/12/2025 10:40 AM EST Appointment [facility] Women's Wellness [place] One [facility] [place] [address] Matt Ulrich MD [address] [place] [address] [place] [address] documented as of this encounter Goals Goal Patient Goal Type Associated Problems Recent Progress Patient-Stated? Author Blood Pressure < 140/90 Blood Pressure 123/84(03/24 1:35 PM EDT) No Chetna Cedeno MD Breast [facility] Breast Health On track(2024 11:27 AM EDT) No Jasmin Poretr, RAUL Note: Patient acknowledges understanding of new [...] documented as of this encounter Care Teams Mine Promotor Relationship Specialty [place] [address] [place] [address] PCP - General 06/21/10 03/08/25 Ayush Marrero MD [address] [place] [address] PCP - General Family Medicine 03/09/25 Arlyn Schmidt MD [address] [place] [address] Consulting Physician Internal Medicine-Endocrinology, Diabetes & Metabolism 11/28/20 Tacho Echavarria MD 1 [place], [place] [address] Internal Medicine-Medical Oncology 11/12/23 Matt Ulrich MD 1 [place], [place] [address] Surgery-Surgical Oncology 12/04/23 Eze Brock Pastoral Care 12/13/23 Annette Walker, ARACELI Branch Account Executive 05/13/24 Batool Celis MD 1 [facility] [place] [address] Radiation Oncologist Radiology-Radiation Oncology 06/08/24 documented as of this encounter
--- OUTSIDE RECORDS SUMMARY | 2025-05-12 12:13 | XMS_ITS | Encounter Summary ---
Author Organization [place] [address] Care Team Providers Care Rubber Goods Inspector Tester Name Role Phone Kit Cedeno MD Primary Care Provider [phone] Arlyn Schmidt MD Unavailable [phone] Cheryl Nair RN Unavailable [phone] Tacho Echavarria MD Unavailable [phone] Matt Ulrich MD Unavailable [phone] Hilary Clemens RN Unavailable Unavaila Eze Caro Unavailable Shila Albrecht RN Unavailable Unavail able Cheyanne To RN Unavailable Unavailabl Rayna Wong RN Unavailable Unavailab Shilpa Olivarez RN Unavailable [phone] Tulio Duong RN Unavailable Unavailable Yaquelin Weaver RN Unavailable Unavailable Pam Wang RN Unavailable Unavailable Jazmín Nair RN Unavailable Unavailable Fidel Rainey RN Unavailable Unavailable Cheryl Nair RN Unavailable [phone] Ophelia Lala RN Unavailable Glo Lee RN Unavailable Unavailab Snaam Evans AGRICULTURAL EDUCATION INSTRUCTOR Unavailable Unavailable Hilary Clemens RN Unavailable Unavaila Ruthy Clayton RN Unavailable Unavailable Rayna Partida RN Unavailable Unavailab Artur Nelson RN Unavailable Unavailable Annette Walker AGRICULTURAL EDUCATION INSTRUCTOR Unavailable [phone] Emmie Crain RN Unavailable Unavailable Brigida Enriquez RN Unavailable Unavailable Fidel Rainey RN Unavailable Unavailable Batool Celis MD Unavailable [phone] Ayush Marrero MD Primary Care Provider [phone] Encounter Details Date Type Department Care Team (Late st Contact Info) Description 10/25/2023 Orders Only [facility] [place] [address] Diane Ellis MD 1 [place] [address] Social History Tobacco Use Types [...] 2:08 PM EDT Macarena Maroin CCMA documented as of this encounter Mental [...] 05/19/2025 2:15 PM EST Office Visit [address] [place] [address] Sin Tran MD [address] [place] [address] 06/08/2025 12:45 PM EST Procedure visit [facility] [address] [facility] [address] [place] [address] Samm Ledesma APRN 7[address] [facility] 100 [place] [address] 08/12/2025 10:40 AM EST Appointment [facility] Women's Wellness [facility] [address] [place] [address] Matt Ulrich MD [address] [place] [address] [place] [address] [place] [id number] documented as of this encounter Goals Goal [...] 10/25/2023 10:4 4 AM EDT Narrative [facility] - 11/11/2023 2:42 PM EDT Requesting Provider: KIT Womack Specimen = [id number] us Diane Ellis MD PATHOLOGY ORDERABLES Final Resul t [facility] 1 [place] [address] documented in this encounter Visit Diagnoses Not on filedocumented in this encounter Additional Health Concerns Infection Onset Date Last Indicated Resolved Time COVID-19 09/04/2024 09/04/2024 09/24/2024 10:1 2 PM EDT documented as of this encounter Care Teams Rubber Goods Inspector Tester Relationship Specialty [place] [address] [place] [address] PCP - General 06/21/10 03/08/25 Ayush Marrero MD [address] [place] [address] PCP - General Family Medicine 03/09/25 Arlyn Schmidt MD [address] [place] [address] Consulting Physician Internal Medicine-Endocrinolog y, Diabetes & Metabolism 11/28/20 Cheryl Nair, RN Oncology Nurse Navigator 10/29/2302/05 Tacho Echavarria MD 1 [place], [place] [address] Internal Medicine-Medical Oncology 11/12/23 Matt Ulrich MD 1 [place] [address] Surgery-Surgical Oncology 12/04/23 Hilary Clemens, RN Registered [...] Nurse Infusion Therapy 04/03/24 04/03/24 Sanam Murray, AGRICULTURAL EDUCATION INSTRUCTOR Eyewear Manufacturing Tech 04/10/24 07/30/24 Hilary Clemens, RN Registered Nurse Infusion Therapy 04/21/24 04/21/24 Ruthy Walker RN Registered Nurse Infusion Therapy 04/24/24 04/24/24 Rayna Partida, RN Registered Nurse Infusion Clinic 05/01/24 05/01/24 Artur Roberts RN Registered Nurse Infusion Therapy 05/07/24 05/07/24 Annette Walker, [facility] Eyewear Manufacturing Tech 05/13/24 Emmie Crain, RN Registered Nurse Infusion Therapy 05/14/24 05/14/24 Brigida Enriquez, RN Registered Nurse Infusion Clinic 05/21/24 05/21/24 Fidel Rainey, RN Registered Nurse Infusion Therapy 05/28/24 05/28/24 Batool Celis MD 1 [facility] [address] Radiation Oncologist Radiology-Radiation Oncology 06/08/24 documented as of this encounter
--- OUTSIDE RECORDS SUMMARY | 2025-05-12 12:13 | XMS_ITS | Encounter Summary ---
Author Organization [place] [address] Care Team Providers Care Rehab Care Assistant Name Role Phone Chetna Cedeno MD Primary Care Provider [phone] Leslie Cooley LIBRARY CIRCULATION ASSISTANT Unavailable UnaBatool Talley HEAT SEAL OPERATOR Unavailable Unavailab Arlyn Disla MD Unavailable [phone] Cheryl Nair RN Unavailable [phone] Tacho Echavarria MD Unavailable [phone] Matt Ulrich MD Unavailable [phone] Hilary Clemens RN Unavailable Unavaila Eze Caro Unavailable Shila Albrecht RN Unavailable Unavail able Cheyanne To RN Unavailable UnavailRayna Johnson RN Unavailable Unavailab Shilpa Olivarez RN Unavailable [phone] Tulio Duong RN Unavailable Unavailable Yaquelin Weaver RN Unavailable Unavailable Pam Wang RN Unavailable Unavailable Jazmín Nair RN Unavailable Unavailable Fidel Rainey RN Unavailable Unavailable Cheryl Nair RN Unavailable [phone] Ophelia Lala RN Unavailable Glo Lee RN Unavailable Unavailab Sanam Evans PUDDLER HELPER Unavailable Unavailable Hilary Clemens RN Unavailable Unavaila Ruthy Clayton RN Unavailable Unavailable Rayna Partida RN Unavailable Unavailab Artur Nelson RN Unavailable Unavailable Annette Walker PUDDLER HELPER Unavailable [phone] Emmie Crain RN Unavailable Unavailable Brigida Enriquez RN Unavailable Unavailable Fidel Rainey RN Unavailable Unavailable Batool Celis MD Unavailable [phone] Ayush Marrero MD Primary Care Provider [phone] Encounter Details Date Type Department Care Team (Late st Contact Info) Description 07/12/2015 Orders Only [facility] [address] [facility] [address] [facility] [address] Stone Cronin MD Social History Tobacco [...] Description 05/19/2025 2:15 PM EST Office Visit [address] [address] Sin Tran MD [address] [place] [address] 06/08/2025 12:45 PM EST Procedure visit [facility] [address] [facility] [address] [place] [address] Samm Ledesma APRN [address] [facility] [address] [place] [address] 08/12/2025 10:40 AM EST Appointment [facility] Women's Wellness [facility] [place] [address] Matt Ulrich MD [address] [facility] [address] [place] [address] documented as of this encounter Procedures Procedure Name Priority Date/Time Associated Diagnosis Comments GMED COLONOSCOPY Routine 07/12/2015 2:30 PM EST documented in this encounter Results * GMED COLONOSCOPY (07/12/2015 2:30 PM EST) 07/12/2015 2:30 PM EST Impressions [facility] - 07/12/2015 3:30 PM EST [...] MD GI PROCEDURE ORDERABLES Doris [email or web address] Result [facility] 1 [place] [address] documented in this encounter Visit Diagnoses Not [...] documented as of this encounter Care Teams Rehab Care Assistant Relationship Specialty [place] [address] [place] [address] PCP - General 06/21/10 03/08/25 Ayush Marrero MD [address] [place] [address] PCP - General Family Medicine 03/09/25 Leslie Cooley, LIBRARY CIRCULATION ASSISTANT Manager Of Recruiting 01/28/19 07/15/19 Batool Myers HEAT SEAL OPERATOR Manager Of Recruiting 02/13/19 07/15/19 Arlyn Schmidt MD [address] [place] [address] Consulting Physician Internal Medicine-Endocrinolog y, Diabetes & Metabolism 11/28/20 Cheryl Nair, RAUL Oncology Nurse Navigator 10/29/2302/05 Tacho Echavarria MD 1 [place] [address] Internal Medicine-Medical Oncology 11/12/23 Matt Ulrich MD 1 [place] [address] Surgery-Surgical Oncology 12/04/23 Hilary Clemens, RN Registered [...] Nurse Infusion Therapy 04/03/24 04/03/24 Sanam Murray, [facility] Manager Of Recruiting 04/10/24 07/30/24 Hilary Clemens, RN Registered Nurse Infusion Therapy 04/21/24 04/21/24 Ruthy Walker RN Registered Nurse Infusion Therapy 04/24/24 04/24/24 Rayna Partida, RN Registered Nurse Infusion Clinic 05/01/24 05/01/24 Artur Roberts RN Registered Nurse Infusion Therapy 05/07/24 05/07/24 Annette Walker, PUDDLER HELPER Manager Of Recruiting 05/13/24 Emmie Crain, RN Registered Nurse Infusion Therapy 05/14/24 05/14/24 Brigida Enriquez, RN Registered Nurse Infusion Clinic 05/21/24 05/21/24 Fidel Rainey, RN Registered Nurse Infusion Therapy 05/28/24 05/28/24 Batool Celis MD [address] [place] [address] [place] [address] Radiation Oncologist Radiology-Radiation Oncology 06/08/24 documented as of this encounter
--- OUTSIDE RECORDS SUMMARY | 2025-05-12 12:13 | XMS_ITS | Clinical Summary ---
Author Organization [facility] Address [address] [place] [address] Phone Care Team Providers Care Cone Runner Name Role Phone Outside, Provider Unavailable [phone] Conditions or Problems No information available. Medications No information available. Medications Administered No information available. Allergies, Adverse Reactions, Alerts No information available. Results No information available. Plan of Care No information available. Procedures No information available. Vital Signs No information available. Immunizations No information available. Advance Directives No information available.
--- OUTSIDE RECORDS SUMMARY | 2025-05-12 12:13 | XMS_ITS | Encounter Summary ---
Author [place] [address] Care Team Providers Care Registered Vascular Technologist (Rvt) Name Role Phone Arlyn Schmidt MD Unavailable [phone] Tacho Echavarria MD Unavailable [phone] Matt Ulrich MD Unavailable [phone] Eze Brock Unavailable Annette Walker MODERN GREEK STUDIES PROFESSOR Unavailable [phone] Batool Celis MD Unavailable [phone] Ayush Marrero MD Primary Care Provider [phone] Reason for Visit * Reason Comments Pharmacy Migraine Medication Management Qulipta Encounter Details Date Type Department Care Team (Latest Contact Info) Description 04/23/2025 Specialty Pharmacy [facility] [address] [place] [address] Annamarie Mark CPhT Pharmacy Migraine [...] th e electric, gas, oil, or water Inside Social threatened to shut off services in your [...] Total Score 5 07/07/2024 [facility] [place] of Occupat ional [facility] - Occupational Stress Questionnaire Answer [...] now)? No 11/07/2023 [facility] IP Transportation Answer D ate [...] vcm not set up; home disconnected * Aretha Prabhakar CPhT - 04/23/2025 2:13 PM EDT Specialty Pharmacy Refill Coordination Note Contacted [facility] today regarding refills of Qulipta and Nurtec. Copay amount: $0.00. Sent citibuddies message. Patient informed of copay. documented in this encounter Plan of Treatment Upcoming Encounters Date Type Department Care Team (Late st Contact Info) Description 05/19/2025 2:15 PM EST Office Visit [address] [place] [address] Sin Tran MD [address] [place] [address] [place] [address] 06/08/2025 12:45 PM EST Procedure visit [facility] [address] [place], [place] [id number] Samm Ledesma, LEYLA [address] [place] [address] 08/12/2025 10:40 AM EST Appointment [facility] Women's Wellness [place] [facility] [place] [address] Matt Ulrich MD [address] [place] [address] [address] [place] [address] documented as of this encounter Goals Goal [...] for any unusual or concerning findings. Breast [facility] Breast [...] (Rvt) Relationship Specialty Start Date End Date Ayush Marrero MD [address] [place] [address] PCP - General Family Medicine 03/09/25 Arlyn Schmidt MD [address] [place] [address] Consulting Physician Internal Medicine-Endocrinology, Diabetes & Metabolism 11/28/20 Tacho Echavarria MD 1 [place] [address] Internal Medicine-Medical Oncology 11/12/23 Matt Ulrich MD 1 [place] [address] Surgery-Surgical Oncology 12/04/23 Eze Brock Pastoral Care 12/13/23 Annette Walker, ARACELI Personal Lines Insurance Advisor 05/13/24 Batool Celis MD 1 [facility] [place] [address] Radiation Oncologist Radiology-Radiation Oncology 06/08/24 documented as of this encounter
--- OUTSIDE RECORDS SUMMARY | 2025-05-12 12:13 | XMS_ITS | Encounter Summary ---
Author Organization [place] [address] Care Team Providers Care Strickler Attendant Name Role Phone Chetna Cedeno MD Primary Care Provider Arlyn Schmidt MD Unavailable [phone] Tacho Echavarria MD Unavailable [phone] Matt Ulrich MD Unavailable [phone] Eze Brock Unavailable Cheryl Nair RN Unavailable [phone] Annette Walker DIRECTOR RECREATION Unavailable [phone] Batool Celis MD Unavailable [phone] Ayush Marrero MD Primary Care Provider [phone] Encounter Details Date Type Department Care Team (Late st Contact Info) Description 10/27/2024 Orders Only [facility] Physical Therapy [place] [address] [place] [address] [address] [place] [address] Shaunna Workman PT Social History [...] in a alf (including now)? No 11/07/[address] [facility] IP [...] 10:36 AM EDT Rodolfo Jc RN * [place] Suicide Severity Rating Scale (Q shift for [...] 05/19/2025 2:15 PM EST Office Visit [address] [place] [address] Sin Tran MD [address] [place] [address] 06/08/2025 12:45 PM EST Procedure visit [facility] [address] [place] [address] Samm Ledesma, REROLLER HAND [address] [facility] [address] [place] [address] 08/12/2025 10:40 AM EST Appointment [facility] Women's Wellness [place] [address] Matt Ulrich MD [address] [place] [address] [address] [place] [address] documented as of this encounter Goals Goal [...] documented as of this encounter Care Teams Strickler Attendant Relationship Specialty [place] [address] [place] [address] PCP - General 06/21/10 03/08/25 Ayush Marrero MD [address] [place], [place] [address] PCP - General Family Medicine 03/09/25 Arlyn Schmidt MD [address] [place] [address] Consulting Physician Internal Medicine-Endocrinology , Diabetes & Metabolism 11/28/20 Tacho Echavarria MD 1 [place] [address] Internal Medicine-Medical Oncology 11/12/23 Matt Ulrich MD 1 [place] [address] Surgery-Surgical Oncology 12/04/23 Eze Brock Pastoral Care 12/13/23 Cheryl Nair, RN Oncology Nurse Navigator 03/25/2412/13 Annette Walker MSW Finish Carpenter 05/13/24 Batool Celis MD 1 [facility] [place] [address] Radiation Oncologist Radiology-Radiation Oncology 06/08/24 documented as of this encounter
--- OUTSIDE RECORDS SUMMARY | 2025-05-12 12:13 | XMS_ITS | Encounter Summary ---
Author Organization [place] [address] Care Team Providers Care Crm Dynamics Developer Name Role Phone Arlyn Schmidt MD Unavailable [phone] Tacho Echavarria MD Unavailable [phone] Matt Ulrich MD Unavailable [phone] Eze Brock Unavailable Annette Walker MECHANICAL SHOP LABORER Unavailable [phone] Batool Celis MD Unavailable [phone] Ayush Marrero MD Primary Care Provider [phone] Reason for Visit * Reason Onset Date Comments Schedule Appointment 04/02/2025 Call from Chely Rowan's office to schedule MRI Encounter Details Date Type Department Care Team (Late st Contact Info) Description 04/02/2025 Telephone [facility] [place] [address] Tacho Echavarria MD [address] [place] [address] [phone] Schedule Appointment (Call from Dr. Rowan's office [...] 07/07/2024 [facility] of Occupat ional Health - Occupational [...] (including now)? No 11/07/2023 [facility] IP Transportation [...] Description 05/19/2025 2:15 PM EST Office Visit [address] [address] Sin Tran MD [address] [place] [address] 06/08/2025 12:45 PM EST Procedure visit [facility] [address] [facility] [address] [place] [address] Samm Ledesma APRN [address] [facility] 100 [place] [address] 08/12/2025 10:40 AM EST Appointment [facility] Women's Wellness [facility] [address] [place] [address] Matt Ulrich MD [address] [place] [address] [address] [place] [address] documented as [...] documented as of this encounter Care Teams Crm Dynamics Developer Relationship Specialty Start Date End Date Ayush Marrero MD [address] [place], [place] [id number] PCP - General Family Medicine 03/09/25 Arlyn Schmidt MD [address] [place] [address] Consulting Physician Internal Medicine-Endocrinology, Diabetes & Metabolism 11/28/20 Tacho Echavarria MD 1 [place] [address] Internal Medicine-Medical Oncology 11/12/23 Matt Ulrich MD 1 [place] [address] Surgery-Surgical Oncology 12/04/23 Eze Brock Pastoral Care 12/13/23 Annette Walker, MECHANICAL SHOP LABORER Printing Roller Handler 05/13/24 Batool Celis MD 1 [facility] [address] Radiation Oncologist Radiology-Radiation Oncology 06/08/24 documented as of this encounter
--- OUTSIDE RECORDS SUMMARY | 2025-05-12 12:13 | XMS_ITS | Encounter Summary ---
Author Organization [place] [address] Care Team Providers Care Vacuum Closing Machine Operator Name Role Phone Chetna Cedeno MD Primary Care Provider [phone] Arlyn Schmidt MD Unavailable [phone] Tacho Echavarria MD Unavailable [phone] Matt Ulrich MD Unavailable [phone] Eze Brock Unavailable Annette Walker Unavailable [phone] Batool Celis MD Unavailable [phone] Ayush Marrero MD Primary Care Provider [phone] Reason for Visit * Reason Comments Pharmacy Migraine Medication Management Qulipta/Nurtec Encounter Details Date Type Department Care Team (Latest Contact Info) Description 02/26/2025 Specialty Pharmacy [facility] [address] [place] [address] Charlotte Matrino CPhT Pharmacy Migraine Medication Management (Qulipta/Nurtec) Social [...] from your doctor or pharmacy? Never 11/07/2023 [facility] Utilities Answer Date Recorded In [...] in a custodial (including now)? No 11/07/2023 [facility] [...] refills of Qulipta/Nurtec. Copay amount: $0 Sent I Do Now I Don't message. Patient informed of copay. * Annamarie Mark CPhT - 02/26/2025 11:29 AM EDT Specialty Pharmacy Refill Coordination Note Contacted [facility] today regarding refills of Qulipta & Nurtec. Copay amount: $0 for each No answer, unable to leave voicemail. voicemail not set up * Anisa Lozoya CPhT - 02/26/2025 11:29 AM EDT Specialty Pharmacy Refill Coordination Note [facility] Completed Questionnaire today regarding refills of Qulipta/Nurtec . Medication anselmo picked up on 03/09. Copay amount: $0 Sent I Do Now I Don't message. Patient informed of copay. * Anisa Lozoya CPhT - 02/26/2025 11:29 AM EDT [facility] will now sheepskin pickler 03/10 with verzenio documented in this encounter Plan of Treatment Upcoming Encounters Date Type Department Care Team (Late st Contact Info) Description 05/19/2025 2:15 PM EST Office Visit [address] [place] [address] Sin Tran MD [address] [place] [address] 06/08/2025 12:45 PM EST Procedure visit [facility] [address] [facility] [address] [place] [address] Samm Ledesma APRN [address] [facility] [address] [place], [place] [address] 08/12/2025 10:40 AM EST Appointment [facility] Women's Wellness [facility] [place] [address] Matt Ulrich MD [address] [place] [address] [address] [place] [address] documented as of this encounter [...] maintain an ideal body weight General No aSnam Julio MA documented as of this encounter Visit Diagnoses Not on filedocumented in this encounter Additional Health Concerns Assessment Noted Time PHQ-9 Depression Total Score: 17 024 8:39 AM EST PHQ-2 Depression Total Score: 5 07/07/20 24 8:39 AM EST documented as of this encounter Care Teams Vacuum Closing Machine Operator Relationship Specialty [place] [address] [place] [address] PCP - General 06/21/10 03/08/25 Ayush Marrero MD [address] [place] [address] PCP - General Family Medicine 03/09/25 Arlyn Schmidt MD [address] [place] [address] Consulting Physician Internal Medicine-Endocrinology, Diabetes & Metabolism 11/28/20 Tacho Echavarria MD [address] [place] [address] Internal Medicine-Medical Oncology 11/12/23 Matt Ulrich MD 1 [place] [address] Surgery-Surgical Oncology 12/04/23 Eze Brock Pastoral Care 12/13/23 Annette Walker, TRIBAL JUDGE Brine Well Operator 05/13/24 Batool Celis MD 1 [facility] [address] Radiation Oncologist Radiology-Radiation Oncology 06/08/24 documented as of this encounter
--- OUTSIDE RECORDS SUMMARY | 2025-05-12 12:13 | XMS_ITS | Encounter Summary ---
Author Organization [place] [address] Care Team Providers Care Marketing Finance Specialist Name Role Phone Kit Cedeno MD Primary Care Provider [phone] Arlyn Schmidt MD Unavailable [phone] Cheryl Nair RN Unavailable [phone] Tacho Echavarria MD Unavailable [phone] Matt Ulrich MD Unavailable [phone] Hilary Clemens RN Unavailable Unavaila Eze Caro Unavailable Shila Albrecht RN Unavailable Unavail able Cheyanne To RN Unavailable Unavailabl Rayna Wong RN Unavailable Unavailab Shilpa Olivarez RN Unavailable [phone] Tulio Duong RN Unavailable Unavailable Yaquelin Weaver RN Unavailable Unavailable Pam Wang RN Unavailable Unavailable Jazmín Nair RN Unavailable Unavailable Fidel Rainey RN Unavailable Unavailable Cheryl Nair RN Unavailable [phone] Ophelia Lala RN Unavailable Glo Lee RN Unavailable Unavailab Sanam Evans HYDROSTATIC TESTER Unavailable Unavailable Hilary Clemens RN Unavailable Unavaila Ruthy Clayton RN Unavailable Unavailable Rayna Partida RN Unavailable Unavailab Artur Nelson RN Unavailable Unavailable Annette Walker HYDROSTATIC TESTER Unavailable [phone] Emmie Crain RN Unavailable Unavailable Brigida Enriquez RN Unavailable Unavailable Fidel Rainey RN Unavailable Unavailable Batool Celis MD Unavailable [phone] Ayush Marrero MD Primary Care Provider [phone] Encounter Details Date Type Department Care Team (Late st Contact Info) Description 10/25/2023 Orders Only [facility] One [facility] [place] [address] Diane Ellis MD 1 [place] [address] Social History Tobacco Use Types [...] Description 05/19/2025 2:15 PM EST Office Visit [address] [place] [address] Sin Tran MD [address] [place] [address] 06/08/2025 12:45 PM EST Procedure visit [facility] [address] [facility] [address] [place] [address] Samm Ledesma APRN [address] [facility] 100 [place] [address] 08/12/2025 10:40 AM EST Appointment [facility] Women's Wellness [facility] [address] [place] [address] Matt Ulrich MD [address] [place] [address] [address] [place] [id number] documented as of this encounter Goals Goal [...] EDT) 10/25/2023 10:4 4 AM EDT Narrative [facility] - 11/06/2023 7:12 PM EDT Requesting Provider: KIT Womack Specimen = [id number] us Diane Ellis MD PATHOLOGY ORDERABLES Final Resul t [facility] 1 [place] [address] documented in this encounter Visit Diagnoses Not on filedocumented in this encounter Additional Health Concerns Infection Onset Date Last Indicated Resolved Time COVID-19 09/04/2024 09/04/2024 09/24/2024 10:1 2 PM EDT documented as of this encounter Care Teams Marketing Finance Specialist Relationship Specialty [place] [address] [place] [address] PCP - General 06/21/10 03/08/25 Ayush Marrero MD [address] [place] [address] PCP - General Family Medicine 03/09/25 Arlyn Schmidt MD [address] [place] [address] Consulting Physician Internal Medicine-Endocrinolog y, Diabetes & Metabolism 11/28/20 Cheryl Nair, RN Oncology Nurse Navigator 10/29/2302/05 Tacho Echavarria MD 1 [place] [address] Internal Medicine-Medical Oncology 11/12/23 Matt Ulrich MD 1 [place] [address] Surgery-Surgical Oncology 12/04/23 Hilary Clemens, [...] Nurse Infusion Therapy 04/03/24 04/03/24 Sanam Murray, HYDROSTATIC TESTER Training Program Developer 04/10/24 07/30/24 Hilary Clemens, RN Registered Nurse Infusion Therapy 04/21/24 04/21/24 Ruthy Walker RN Registered Nurse Infusion Therapy 04/24/24 04/24/24 Rayna Partida, RN Registered Nurse Infusion Clinic 05/01/24 05/01/24 Artur Roberts RN Registered Nurse Infusion Therapy 05/07/24 05/07/24 Annette Walker, [facility] Training Program Developer 05/13/24 Emmie Crain, RN Registered Nurse Infusion Therapy 05/14/24 05/14/24 Brigida Enriquez, RN Registered Nurse Infusion Clinic 05/21/24 05/21/24 Fidel Rainey, RN Registered Nurse Infusion Therapy 05/28/24 05/28/24 Batool Celis MD [address] [place] [address] [place] [address] Radiation Oncologist Radiology-Radiation Oncology 06/08/24 documented as of this encounter
--- OUTSIDE RECORDS SUMMARY | 2025-05-12 12:13 | XMS_ITS | Encounter Summary ---
Author Organization [place] Address One [facility] [place] [address] Care Team Providers Care Custodial Officer Name Role Phone Chetna Cedeno MD Primary Care Provider [phone] Arlyn Schmidt MD Unavailable [phone] Tacho Echavarria MD Unavailable Matt Ulrich MD Unavailable Eze Brock Unavailable Cheryl Nair RN Unavailable [phone] Sanam Murray PROJECT SURVEYOR Unavailable Unavailable Annette Walker PROJECT SURVEYOR Unavailable [phone] Batool Celis MD Unavailable [phone] Ayush Marrero MD Primary Care Provider [phone] Encounter Details Date Type Department Care Team (Late st Contact Info) Description 07/06/2024 Orders Only [facility] [place] [address] Shilpa Tan MD [address] [place] [address]- Social History Tobacco Use Types Packs/Day Years [...] 07/07/2024 [facility] - Occupational Stress Questionnaire Answer Date Recorded [...] [facility] [...] 07/06/2024 4:32 PM Kayla Lee RN * [place] Suicide Severity Rating Scale (Q shift for [...] Description 05/19/2025 2:15 PM EST [facility] [address] [facility] [address] [place] [address] Sin Tran MD [address] [place] [address] 06/08/2025 12:45 PM EST Procedure visit [facility] [address] [facility] [address] [place], [place] [address] Samm Ledesma, LEYLA [address] [facility] [address] [place], [place] [address] 08/12/2025 10:40 AM EST Appointment [facility] Women's Wellness [facility] [place] [id number] Matt Ulrich MD [address] [place] [address] [address] [place] [address] documented as of this encounter Goals Goal Patient Goal Type Associated Problems Recent Progress Patient-Stated? Author Blood Pressure < 140/90 Blood Pressure 123/84(03/24 1:35 PM EDT) No Chetna Cedeno MD Breast [facility] Breast Health On track(2024 11:27 AM EDT) No Jasmin Porter, RN Note: Patient acknowledges understanding of new diagnosis, plan of care, available resources and how to contact Nurse Navigator with any future questions or concerns. Breast [facility] Breast Health Not on track(2024 11:27 AM EDT) No Jasmin Porter, RAUL Note: Patient will be compliant with monthly SBE and is aware of who to contact for any unusual or concerning findings. Maintain a healthy diet, exercise regularly and maintain an ideal body weight General No Sanam Julio MA documented as of this encounter Procedures Procedure Name Priority Date/Time Associated Diagnosis Comments NEOGroupCharger BREAST PANEL (3 STAIN) Routine 07/06/2024 12:51 PM EST documented in this encounter Results * NEOGENOMICS BREAST PANEL (3 STAIN) (07/06/2024 12:51 PM EST) 07/06/2024 12:5 1 PM EST Narrative [facility] - 09/24/2024 2:31 PM EDT Requesting Provider: MATT Womack Specimen = [id number] us Shilpa Tan MD PATHOLOGY ORDERABLES Final R esult [facility] 1 [place], [place] [address] documented in this encounter Visit Diagnoses Not on filedocumented in this encounter Additional Health Concerns Infection Onset Date Last Indicated Resolved Time COVID-19 09/04/2024 09/04/2024 09/24/2024 10:1 2 PM EDT Assessment Noted Time PHQ-9 Depression Total Score: 12 024 12:00 PM EDT documented as of this encounter Care Teams Custodial Officer Relationship Specialty [place] [address] [place] [address] PCP - General 06/21/10 03/08/25 Ayush Marrero MD [address] [place] [address] PCP - General Family Medicine 03/09/25 Arlyn Schmidt MD [address] [place] [address] Consulting Physician Internal Medicine-Endocrinology , Diabetes & Metabolism 11/28/20 Tacho Echavarria MD 1 [place], [place] [address] Internal Medicine-Medical Oncology 11/12/23 Matt Ulrich MD 1 [facility] [place] [place] [address] Surgery-Surgical Oncology 12/04/23 Eze Brock Pastoral Care 12/13/23 Cheryl Nair, RN Oncology Nurse Navigator 03/25/2412/13 Sanam Murray MSW Chief Revenue Officer 04/10/24 07/30/24 Annette Walker MSW Chief Revenue Officer 05/13/24 Batool Celis MD 1 [facility] [place] [address] Radiation Oncologist Radiology-Radiation Oncology 06/08/24 documented as of this encounter
--- OUTSIDE RECORDS SUMMARY | 2025-05-12 12:13 | XMS_ITS | Encounter Summary ---
Author [place] [address] Care Team Providers Care Film Reproducer Name Role Phone Arlyn Schmidt MD Unavailable [phone] Tacho Echavarria MD Unavailable [phone] Matt Ulrich MD Unavailable [phone] Eze Brock Unavailable Annette Walker TRAY CHECKER Unavailable [phone] Batool Celis MD Unavailable [phone] Ayush Marrero MD Primary Care Provider [phone] Reason for Visit * Reason Comments Pharmacy Migraine Medication Management Qulipta/Nurtec Encounter Details Date Type Department Care Team (Latest Contact Info) Description 03/30/2025 Specialty Pharmacy [facility] [address] [place] [address] Charlotte Martino CPhT Pharmacy Migraine [...] Total Score 5 07/07/2024 [facility] [place] of Occupat ional Health - Occupational Stress [...] in a correction (including now)? No 11/07/2023 [facility] IP Transportation Answer D [...] refills of Qulipta/Nurtec. Copay amount: $0 Sent [employer] message. Patient informed of copay. * Annamarie Mark CPhT - 03/30/2025 11:19 AM EDT [facility] Processed Qulipta/Nurtec for being delivered by [employer] on 04/02. documented in this encounter Plan of Treatment Upcoming Encounters Date Type Department Care Team (Late st Contact Info) Description 05/19/2025 2:15 PM EST Office Visit [facility] [address] [place] [address] Sin Tran MD [address] [place] [address] 06/08/2025 12:45 PM EST Procedure visit [facility] [address] [facility] [address] [place] [address] Samm Ledesma APRN [address] [address] 08/12/2025 10:40 AM EST Appointment [facility] [place] [address] Matt Ulrich MD [address] [place] [address] [place] [address] documented as of this encounter Goals Goal [...] documented as of this encounter Care Teams Film Reproducer Relationship Specialty Start Date End Date Ayush Marrero MD [address] [place] [address] PCP - General Family Medicine 03/09/25 Arlyn Schmidt MD [address] [place], [place] [address] Consulting Physician Internal Medicine-Endocrinology, Diabetes & Metabolism 11/28/20 Tacho Echavarria MD 1 [place], [place] [address] Internal Medicine-Medical Oncology 11/12/23 Matt Ulrich MD 1 [place], [place] [address] Surgery-Surgical Oncology 12/04/23 Eze Brock Pastoral Care 12/13/23 Annette Walker, TRAY CHECKER Saddle Tree Stitcher 05/13/24 Batool Celis MD 1 [facility] [place] [address] Radiation Oncologist Radiology-Radiation Oncology 06/08/24 documented as of this encounter
--- OUTSIDE RECORDS SUMMARY | 2025-05-12 12:13 | XMS_ITS | Encounter Summary ---
Author Organization [place] [address] Care Team Providers Care Shirt Cleaner Name Role Phone Kit Cedeno MD Primary Care Provider [phone] Arlyn Schmidt MD Unavailable [phone] Cheryl Nair RN Unavailable [phone] Tacho Echavarria MD Unavailable [phone] Matt Ulrich MD Unavailable [phone] Hilary Clemens RN Unavailable Unavaila Eze Caro Unavailable Shila Albrecht RN Unavailable Unavail able Cheyanne To RN Unavailable Unavailabl Rayna Wong RN Unavailable Unavailab Shilpa Olivarez RN Unavailable [phone] Tulio Duong RN Unavailable Unavailable Yaquelin Weaver RN Unavailable Unavailable Pam Wang RN Unavailable Unavailable Jazmín Nair RN Unavailable Unavailable Fidel Rainey RN Unavailable Unavailable Cheryl Nair RN Unavailable [phone] Ophelia Lala RN Unavailable Glo Lee RN Unavailable Unavailab Sanam Evans LINTER OPERATOR Unavailable Unavailable Hilary Clemens RN Unavailable Unavaila Ruthy Clayton RN Unavailable Unavailable Rayna Partida RN Unavailable Unavailab Artur Nelson RN Unavailable Unavailable Annette Walker LINTER OPERATOR Unavailable [phone] Emmie Crain RN Unavailable Unavailable Brigida Enriquez RN Unavailable Unavailable Fidel Rainey RN Unavailable Unavailable Batool Celis MD Unavailable [phone] Ayush Marrero MD Primary Care Provider [phone] Encounter Details Date Type Department Care Team (Late st Contact Info) Description 10/25/2023 Orders Only [facility] [address] [facility] [address] Diane Ellis MD [address] [place] [address] Social History Tobacco Use Types [...] Author No 12/06/2022 2:08 PM EDT Macarena Mairon, ZEINA * Is the person blind or [...] Description 05/19/2025 2:15 PM EST Office Visit [address] [place] [address] Sin Tran MD [address] [place] [id number] 06/08/2025 12:45 PM EST Procedure visit [facility] [address] [facility] [address] [place] [address] Samm Ledesma APRN [address] [facility] [address] [place] [address] 08/12/2025 10:[address] [facility] [address] [place] [address] Matt Ulrich MD [address] [place] [address] [address] [place] [phone] documented as of this encounter Goals Goal [...] 10/25/2023 10:[address] [facility] - 11/01/2023 3:02 PM EDT Requesting Provider: KIT Womack Specimen = [id number] us Diane Ellis MD PATHOLOGY ORDERABLES Final Resul t [facility] [address] [place] [address] documented in this encounter Visit Diagnoses Not on filedocumented in this encounter Additional Health Concerns Infection Onset Date Last Indicated Resolved Time COVID-19 09/04/2024 09/04/2024 09/24/2024 10:1 2 PM EDT documented as of this encounter Care Teams Shirt Cleaner Relationship Specialty [place] [address] [place] [address] PCP - General 06/21/10 03/08/25 Ayush Marrero MD [address] [place] [address] PCP - General Family Medicine 03/09/25 Arlyn Schmidt MD [address] [place] [address] Consulting Physician Internal Medicine-Endocrinolog y, Diabetes & Metabolism 11/28/20 Cheryl Nair, RN Oncology Nurse Navigator 10/29/2302/05 Tacho Echavarria MD [address] [place] [address] Internal Medicine-Medical Oncology 11/12/23 Matt Ulrich MD [address] [place] [address] Surgery-Surgical Oncology 12/04/23 Hilary Clemens, [...] Nurse Infusion Therapy 04/03/24 04/03/24 Sanam Murray, LINTER OPERATOR Straw Hat Plunger Operator 04/10/24 07/30/24 Hilary Clemens, RN Registered Nurse Infusion Therapy 04/21/24 04/21/24 Ruthy Walker RN Registered Nurse Infusion Therapy 04/24/24 04/24/24 Rayna Partida RN Registered Nurse Infusion Clinic 05/01/24 05/01/24 Artur Roberts RN Registered Nurse Infusion Therapy 05/07/24 05/07/24 Annette Walker, LINTER OPERATOR Straw Hat Plunger Operator 05/13/24 Emmie Crain, RN Registered Nurse Infusion Therapy 05/14/24 05/14/24 Brigida Enriquez, RN Registered Nurse Infusion Clinic 05/21/24 05/21/24 Fidel Rainey, RN Registered Nurse Infusion Therapy 05/28/24 05/28/24 Batool Celis MD [address] [place] [address] [place] [address] Radiation Oncologist Radiology-Radiation Oncology 06/08/24 documented as of this encounter
--- OUTSIDE RECORDS SUMMARY | 2025-05-12 12:13 | XMS_ITS | Clinical Summary ---
Author Organization [facility] Address [address] [facility] [address] [place], [place] [address] Phone Care Team Providers Care Commercial Makeup Artist Name Role Phone Arlyn Schmidt MD Unavailable [phone] Tacho Echavarria MD Unavailable [phone] Matt Ulrich MD Unavailable [phone] Eze Brock Unavailable Annette Walker NATURAL GAS INSPECTOR Unavailable [phone] Batool Celis MD Unavailable [phone] Ayush Marrero MD Primary Care Provider [phone] Allergies Active Allergy Reactions Criticality Noted Date [...] (AEROCHAMBER MV) Misc Spacer 1 Each by [facility].(Non-Drug; Combo Route) route as needed. 1 Device [...] Active fluticasone propionate (FLONASE) 50 mcg/actuation Nasl [place], Suspension 1 [place] by Nasal route daily. 1 Each 07/03/20 [...] migh t be different from the original. [facility] - Sin Tran MD Controlled [...] or Functional capacity documented (EVERY VISIT)01/03/2022 Pharmacy: [address] [address] [facility] [phone] AIS POA: 02/10/2025 josh as expected #[id number] Josh 08-05-2018 adm Josh 08-14-18 adm UDS 2 adm Care gap audit completed by Medina White RN on 01/01/2022. 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 I doubt the patient has underlying Salem's disease. We will proceed with the work-up [...] Team Description 04/27/2025 Patient Outreach SEP Neurology [facility] [address] [place] [address] Samm Ledesma APRN Botox Injection (Due 06/02/25) 04/23/2025 Telephone [facility] [place] [address] Josie Almaraz, Clerical Staff Cancelled Appointment (For 04/29/25 with [facility] (6 month f/u)) 04/23/2025 Specialty Pharmacy [facility] [address] [place] [address] Annamarie Mark CPhT Pharmacy Migraine Medication Management (Qulipta) 04/09/2025 2:46 PM EDT - 04/09/2025 11:59 PM EDT Hospital Encounter [facility] [address] [place] [address] Adryan Rowan MD Intraductal carcinoma in situ of right breast Discharge Disposition: Home or Self Care 04/09/2025 Telephone [facility] [place] [address] Adryan Rowan MD Information Only (MRI order ) 04/02/2025 Telephone [facility] [place] [address] Tacho Echavarria MD Schedule Appointment (Call from Dr. Rowan's office to schedule MRI ) 03/30/2025 Specialty Pharmacy [facility] [address] [place], [place] [id number] Charlotte Martino [facility] Pharmacy Migraine Medication Management (Qulipta/Nurtec) 03/24/2025 1:33 PM EDT - 03/24/2025 11:59 PM EDT Hospital Encounter [facility] [place] [address] Tacho Echavarria MD Invasive ductal carcinoma of [...] EDT Hospital Encounter [place] [address] Tacho Echavarria MD Invasive ductal carcinoma of breast, female, right (HCC) (Primary Dx) Discharge Disposition: Home or Self Care 03/24/2025 Telephone [facility] [place], [place] [id number] Tacho Echavarria MD 03/23/2025 Social Work [facility] Cancer Care [facility] [place] [address] Annette Walker MSW 03/23/2025 Patient Outreach [facility] [place] [address] Shilpa Cline, lead ios developer Nurse Navigation 03/22/2025 Telephone [facility] [place] [address] Tacho Echavarria MD 03/18/2025 7:20 AM EDT - 03/18/2025 11:59 PM EDT Hospital Encounter 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); Intraductal carcinoma in situ of right breast Discharge Disposition: Home or Self Care 03/10/2025 1:30 PM EDT Procedure visit [facility] [place] [id number] [facility] [address] [place] [address] Krissy Rhodes APRN Chronic migraine without aura, intractable, with status migrainosus (Primary Dx) Discharge Disposition: Home or Self Care 03/09/2025 Telephone [facility] [place], [place] [phone] Tacho Echavarria MD 03/04/2025 Orders Only [facility] [place], [place] [id number] Tacho Echavarria MD Invasive ductal carcinoma of breast, female, right (HCC) (Primary Dx) 03/04/2025 Telephone [facility] Mahmood [address] [place] [address] Linda Osborne MD Medication Refill 03/02/2025 Telephone [facility] [address] [facility] [address] [place] [id number] Arlyn Schmidt MD Paperwork/forms (paperwork received from [facility]) 02/26/2025 Specialty Pharmacy [facility] [address] [place], [place] [phone] Charlotte Martino, [facility] Pharmacy Migraine Medication Management (Qulipta/Nurtec) 02/25/2025 Specialty Pharmacy [facility] [address] [place], [place] [phone] Annette Renee [facility] Pharm[facility] Oncology Management (Abemaciclib) 02/15/2025 Telephone [facility] [place] [address]7817 Tacho Echavarria MD 02/12/2025 Telephone [facility] [place], [place] [phone] Eze Rowland MD Follow-up (Updated form, loan deferment form ) 02/10/2025 10:30 AM EDT Office Visit [facility] [address] [place] [address] Sin Tran MD Chronic pain syndrome (Primary Dx); Post laminectomy syndrome 02/10/2025 Patient Outreach [facility] [place] [phone] Tacho Echavarria MD Oncology Nurse Navigation 02/10/2025 Orders Only [facility] [place] [phone] Shilpa Cline RN from Last 3 Months Immunizations Immunization Administration Dates Next Due Influenza High Dose 06/25/2024, 4(Deferred: Other - patient is getting vaccine at [facility]) Influenza Vaccine Quadrivalent PF 03/27/2023,01/2015 Influenza [...] Cronin MD; Location: T ENDOSCOPY; Service: Endoscopy GASTRIC BYPASS SURGERY 05/01/2017 Abdomen/N/A LAPAROSCOPIC SLEEVE GASTRECTOMY ; Surgeon: Marcus Perez MD; Location: [facility] MAIN OR; Service: General IR [...] STIMULATOR IMPLANT; Surgeon: Munir Hilton MD; Location: [facility] MAIN OR; Service: Pain Management Medical devices from this surgery are in the Medical Devices section. SPINE SURGERY 01/04/2021 N/A PAIN PUMP PERMANENT IMPLANT; Surgeon: Munir Hilton MD; Location: [facility] MAIN OR; Service: Pain Management Medical [...] Surgeon: Matt Ulrich MD; Location: [facility] MAIN OR; Service: General Medical History Medical [...] the past 12 months has th e [employer], [facility], oil, or water [employer] threatened to shut off services in your home? No 07/07/2024 Social Connection and Isolation Panel Answer Date Recorded In a typical week, how many times do you talk on the phone with family, friends, or neighbors? Once a week 11/07/19 24 How often do you get togethe r with friends or relatives? Once a week 11/07/2023 How often do you attend [facility] or nondenominational services? 1 to 4 times [...] Date Recorded PHQ-2 Total Score 5 07/07/2024 [facility] of Occupat ional Health - Occupational Stress [...] in a halfway (including now)? No 11/07/2023 [facility] IP Transportation Answer [...] Description 05/19/2025 2:15 PM EST Office Visit [place] [address] [place] [address] [place] [address] [place] [address] 06/08/2025 12:45 PM EST Procedure visit [facility] [address] [facility] [address] [place] [address] Samm Ledesma APRN [address] [facility] [address] [place] [address] 08/12/2025 10:40 AM EST Appointment [facility] Women's Wellness [place] [facility] [place], [place] [phone] Matt Ulrich MD [address] [place] [address] [place] [address] Health Maintenance Due Date Last Done Comments [...] or concerns. Breast [facility] Breast [facility] Not on track(2024 11:27 AM EDT) [...] Julio MA Medical Devices Implanted Type Area Marine Steward Device Identifier Shelf Expiration Date Model / Serial / Lot Kit Acc .133in Injex Didi Baso4 Biwing Flxb Rem Tl Preld - [id number] Implanted:Qty: 1 on 02/24/2020 by Munir Hilton MD at [facility] N/A: Back [employer]:NEURO 10/28/2023 [id number] / / [id number] Neurostimulator Rechar Adapt-Stim Sure Scan Intellis - [id number] Implanted:Qty: 1 on 02/24/2020 by Munir Hilton MD at [facility] N/A: Back [employer]:NEURO 12/19/2020 [id number] / [id number] / Kit Lead Percutaneous Mri Surescan Vectris 1x8 60cm - [id number] Implanted:Qty: 1 on 02/24/2020 by Munir Hilton MD at [facility] N/A: Back [employer]:NEURO 09/09/2023 [id number] / / [id number] Kit Lead Percutaneous Mri Surescan Vectris 1x8 60cm - [id number] Implanted:Qty: 1 on 02/24/2020 by Munir Hilton MD at [facility] N/A: Back [employer]:NEURO 10/08/2023 [id number] / / [id number] Device Suturing Mechanical Fixate Tissue Band - [id number] Implanted:Qty: 1 on 02/24/2020 by Munir Hilton MD at [facility] N/A: Back [employer] SCI:NEUROMODULA TION 02/03/2024- / / [id number] Device Suturing Mechanical Fixate Tissue Band - [id number] Implanted:Qty: 1 on 02/24/2020 by Munir Hilton MD at [facility] N/A: Back [employer] SCI:NEUROMODULA TION 02/03/2024- / / [id number] Envelope Absorbable Tyrx Polyarylate Medium 2.7in X 2.5in - [id number] Implanted:Qty: 1 on 02/24/2020 by Munir Hilton MD at [facility] N/A: Back [employer]:NEURO 12/03/2020 [id number] / / [id number] Device Sut Fixate Anchr Ld Tiss Bnd [id number] - [id number] Implanted:Qty: 1 on 01/04/2021 by Munir Hilton MD at [facility] N/A: Back [employer] SCI:NEUROMODULA TION [id number] 10/25/2024 / / [id number] Cath It 1-Pc 114cm 86cm Didi 4-Lyr Sut-Ls Relay Dispatcher Conn Lng Spin - [id number] Implanted:Qty: 1 on 01/04/2021 by Munir Hilton MD at [facility] N/A: Back [employer]:NEURO 12/10/2022 [id number] / / [id number] Pump It 2.5mm 0n601xm Flxb Synchromed Ii Rsvr Bk - [id number] Implanted:Qty: 1 on 01/04/2021 by Munir Hilton MD at [facility] N/A: Back [employer]:NEURO 01/02/2022 [id number] / [id number] H / Port Infs 8fr Sarah 1.6x2.6mm Xcela Pwr Inj Lpro Ti Pu-11/29/2023 Implanted:Qty: 1 on 11/29/2023 by Joselito Goodwin MD [facility] [id number] / / [id number] Procedures Procedure Name Priority Date/Time Associated Diagnosis [...] POC Routine 03/18/2025 7:2 3 AM EDT MM MAMMO DIGITAL STEPHANE DIAGN [...] HISTORY: D05.11-Intraductal carcinoma in situ of right mrcfpd-QPX-49-CM. COMPARISON: CT brain 01/12/2024, MRI 01/06/2024 and dating back to 05/01/2018. PROCEDURE COMMENTS: Multiplanar sequences obtained with and without Gadolinium contrast as recorded in [facility].. Sequences include thin section precontrast and dynamic [...] HISTORY: D05.11-Intraductal carcinoma in situ of right egbome-OOS-77-CM. COMPARISON: CT brain 01/12/2024, MRI 01/06/2024 and dating back to05/01/2018. PROCEDURE COMMENTS: Multiplanar sequences obtained with and withoutGadolinium contrast as recorded in [facility].. Sequences include thin section precontrastand dynamic post contrast coronal T1 images through the sella. FINDINGS: Redemonstrated is a lesion along the superior aspect of the pituitarygland measuring approximately 9 mm across with a crescentic anterior [id number] component. This lesion otherwise appears filled by [...] the ordering clinician. us Adryan Rowan MD [facility] MRI ORDERABLES Final Resul t * (ABNORMAL) CBC WITH DIFF (03/24/2025 1:29 PM EDT) WBC 3.9 3.7 - 10.3 x10(3)/mc L 03/24/2025 1:40 PM EDT [facility] RBC 2.92(L) 3.90 - 5.20 x10(6)/mc L 03/24/2025 1:40 PM EDT [facility] Hgb 9.7(L) 11.2 - 15.7 g/dL 03/24/2025 1:40 PM EDT [facility] Hct 28.2(L) 34.0 - 45.0 % 03/24/2025 1:40 PM EDT [facility] MCV 96.6 80.0 - 100.0 fL 03/24/2025 1:40 PM EDT [facility] MCH 33.2 26.0 - 34.0 pg 03/24/2025 1:40 PM EDT [facility] MCHC 34.4 30.7 - 35.5 g/dL 03/24/2025 1:40 PM EDT [facility] RDW 13.7 <=14.9 % 03/24/2025 1:40 PM EDT [facility] Platelet 197 155 - 369 x10(3)/mc L 03/24/2025 1:40 PM EDT [facility] MPV 8.9 8.8 - 12.5 fL 03/24/2025 1:40 PM EDT [facility] Neut # Prelim 2.3 1.6 - 6.1 x10(3)/mc L 03/24/2025 1:40 PM EDT [facility] Comment:Preliminary automate d absolute neutrophil count. Value may change if manual differential is indicated. Neut Percent 60.4 % 03/24/2025 1:40 PM EDT [facility] Comment:Neutrophils equals s egs plus bands Imm Gran% 0.3 % 03/24/2025 1:40 PM EDT [facility] Comment:Automated count of m etamyelocytes, myelocytes and promyelocytes. Lymph Percent 28.2 % 03/24/2025 1:40 PM EDT [facility] Percent 8.5 % 03/24/2025 1:40 PM EDT [facility] Eos Percent 1.3 % 03/24/2025 1:40 PM EDT [facility] Baso Percent 1.3 % 03/24/2025 1:40 PM EDT [facility] Neut # 2.3 1.6 - 6.1 x10(3)/mc L 03/24/2025 1:40 PM EDT [facility] Comment:Neutrophils equals s egs plus bands IMMGRAN# 0.0 0.0 - 0.1 x10(3)/mc L 03/24/2025 1:40 PM EDT [facility] Comment:Automated count of m etamyelocytes, myelocytes and promyelocytes. An absolute IG <0.1 is reported as 0.0. Lymph # 1.1(L) 1.2 - 3.9 x10(3)/mc L 03/24/2025 1:40 PM EDT [facility] # 0.3 0.3 - 0.9 x10(3)/mc L 03/24/2025 1:40 PM EDT [facility] Eos# 0.1 0.0 - 0.5 x10(3)/mc L 03/24/2025 1:40 PM EDT [facility] Baso # 0.1 0.0 - 0.1 x10(3)/mc L 03/24/2025 1:40 PM EDT [facility] Blood VENOUS STRUCTURE / Unknown Port / Unknown 03/24/2025 1:29 PM EDT 03/24/2025 1:35 PM EDT Tacho Echavarria MD HEMATOLOGY ORDERABLES Final Result [facility] [address] [place] [address] * (ABNORMAL) COMPREHENSIVE METABOLIC PANEL (03/24/2025 1:29 PM EDT) Sodium 140 136 - 145 mmol/L 03/24/2025 1:58 PM EDT [facility] Potassium 3.8 3.5 - 5.0 mmol/L 03/24/2025 1:58 PM EDT [facility] Chloride 104 98 - 107 mmol/L 03/24/2025 1:58 PM EDT [facility] Total CO2 23 22 - 29 mmol/L 03/24/2025 1:58 PM EDT [facility] Anion Gap 13 7 - 16 mmol/L 03/24/2025 1:58 PM EDT [facility] Calcium 9.1 8.6 - 10.4 mg/dL 03/24/2025 1:58 PM EDT [facility] Glucose Lvl 114(H) 70 - 99 mg/dL 03/24/2025 1:58 PM EDT [facility] BUN 14 6 - 20 mg/dL 03/24/2025 1:58 PM EDT [facility] Creatinine 0.81 0.51 - 1.30 mg/dL 03/24/2025 1:58 PM EDT [facility] Albumin 3.9 3.5 - 5.2 gm/dL 03/24/2025 1:58 PM EDT [facility] Total Protein 6.4 6.4 - 8.3 gm/dL 03/24/2025 1:58 PM EDT [facility] Bili Total 0.4 0.2 - 1.3 mg/dL 03/24/2025 1:58 PM EDT [facility] ALT 8 <=41 U/L 03/24/2025 1:58 PM EDT [facility] AST 14 <=40 U/L 03/24/2025 1:58 PM EDT [facility] Alk Phos 146(H) 36 - 123 U/L 03/24/2025 1:58 PM EDT [facility] eGFR (CKD-EPIcr 2020) 84 >=60 mL/min/1.7 3 m2 03/24/2025 1:58 PM EDT [facility] Comment:Estimated GFR was ca lculated using the CKD-EPIcr (2020) equation refit without race. The equation is recommended by the National Kidney Foundation - [place] [employer] of Nephrology Task Force. Blood VENOUS STRUCTURE / Unknown Port / Unknown 03/24/2025 1:29 PM EDT 03/24/2025 1:36 PM EDT Tacho Echavarria MD CHEMISTRY ORDERABLES Final Result [facility] [address] [place] [id number] * PET CT SKULL BASE TO MID [...] (HCC)-ICD-10-CM D05.11-Intraductal carcinoma in situ of right zaxjhd-TAL-05-CM COMPARISON: PET/CT 11/09/2024. PROCEDURE COMMENTS: 14.7 mCi [...] (HCC)-ICD-10-CM D05.11-Intraductal carcinoma in situ of right zptbyr-ETR-84-CM COMPARISON: PET/CT 11/09/2024. PROCEDURE COMMENTS: 14.7 mCi [...] GLUCOSE METER POC (03/18/2025 7:23 AM EDT) [facility] Glucose Meter POC 101(H) 70 - 100 mg/dL 03/18/2025 7:26 AM EDT [facility] Sample Type Capillary 03/18/2025 7:26 AM EDT [facility] Patient Status Non-Critical Patient 03/18/2025 7:26 AM EDT [facility] Blood BLOOD SPECIMEN / Unknown 03/18/2025 7:23 AM EDT 03/18/2025 7:26 AM EDT Adryan Rowan MD POINT OF CARE TEST ORDERABLES Final Result [facility] [address] [place] [address] * MM MAMMO DIGITAL STEPHANE DIAGN RIGHT (01/27/2024 11:20 AM EDT) Anatomical Region Laterality Modality Breast Right Mammography 01/27/2024 12:5 7 PM EDT Impressions 01/27/2024 12:57 PM EDT Incomplete-need additional imaging evaluation (XIK-Vlvjecjo-4) ~ RECOMMENDATION: Ultrasound of the right breast. [...] the next mammogram, in accordance with the [place] [employer] of Radiology and the Society of [...] sinceprior. ~ IMPRESSION: Incomplete-need additional imaging evaluation (LDC-Tbdloxcd-0) ~ RECOMMENDATION: Ultrasound of the right breast. [...] the next mammogram, in accordance with the [place] [employer] of Radiology and the Society of Breast Imaging recommendations. Jeanette Smith APRN IMG MAMMOGRAPHY ORDERABLES Final Result * [facility] COLONOSCOPY (07/12/2015 2:30 PM EST) 07/12/2015 2:30 PM EST Impressions [facility] - 07/12/2015 3:30 PM EST [...] MD GI PROCEDURE ORDERABLES Doris mcmahon Result [facility] [address] [place] [address] from Last 3 Months or Most Recently Relevant to Health Maintenance Insurance [facility] [id number] [facility] [address] Advance Directives For more information, please contact: [phone] * Full Code (Latest Code Status on File) Date Activated Date Inactivated Comments 05/01/2017 2:57 PM 05/03/2017 5:30 PM Care Teams Commercial Makeup Artist Relationship Specialty Start Date End Date Ayush Marrero MD [address] [place] [address] PCP - General Family Medicine 03/09/25 Arlyn Schmidt MD [address] [place], [place] [id number] Consulting Physician Internal Medicine-Endocrinology, Diabetes & Metabolism 11/28/20 Tacho Echavarria MD [address] [place] [id number] Internal Medicine-Medical Oncology 11/12/23 aMtt Ulrcih MD 1 [place] [address] Surgery-Surgical Oncology 12/04/23 Eze Brock Pastoral Care 12/13/23 Annette Walker, ARACELI Consumer Experience Consultant 05/13/24 Batool Celis MD 1 [facility] [place] [address] Radiation Oncologist Radiology-Radiation Oncology 06/08/24
--- OUTSIDE RECORDS SUMMARY | 2025-05-12 12:13 | XMS_ITS | Encounter Summary ---
Author Organization [place] [address] Care Team Providers Care Emergency Management Director Name Role Phone Arlyn Schmidt MD Unavailable [phone] Tacho Echavarria MD Unavailable [phone] Matt Ulrich MD Unavailable [phone] Eze Brock Unavailable Annette Walker ELECTRICAL CONSTRUCTION PROJECT MANAGER Unavailable [phone] Batool Celis MD Unavailable [phone] Ayush Marrero MD Primary Care Provider [phone] Reason for Visit * Reason Onset Date Comments Cancelled Appointment 04/23/2025 For with [facility] (6 month f/u) Encounter Details Date Type Department Care Team (Late st Contact Info) Description 04/23/2025 Telephone [facility] [place] [address] Josie Almaraz, Clerical Staff Cancelled [...] in a retirement (including now)? No 11/07/2023 [facility] IP Transportation [...] is currently under TX with Dr Rowan ([facility]) for Stage IV met breast ca. Told her we would let Dr Celis know that I cancelled the appt, but that if [facility] felt that something different should be done, she would have someone call the pt back. documented in this encounter Plan of Treatment Upcoming Encounters Date Type Department Care Team (Late st Contact Info) Description 05/19/2025 2:15 PM EST Office Visit [facility] [address] [place] [address] [address] [place] [address] Sin Tran MD [address] [place] [address] 06/08/2025 12:45 PM EST Procedure visit [facility] [address] [facility] [address] [place] [address] Samm Ledesma APRN [address] [facility] [address] [place] [address] 08/12/2025 10:40 AM EST Appointment [facility] Women's Wellness [place] [facility] [place] [address] Matt Ulrich MD [address] [place] [address] [address] [place] [address] documented as of this encounter [...] on track(2024 11:27 AM EDT) No Jasmin Proter, RAUL Note: Patient will be compliant with [...] as of this encounter Care Teams Emergency Management Director Relationship Specialty Start Date End Date Ayush Marrero MD [address] [place] [address] PCP - General Family Medicine 03/09/25 Arlyn Schmidt MD [address] [place] [address] Consulting Physician Internal Medicine-Endocrinology, Diabetes & Metabolism 11/28/20 Tacho Echavarria MD [address] [place] [phone] Internal Medicine-Medical Oncology 11/12/23 Matt Ulrich MD [address] [place] [id number] Surgery-Surgical Oncology 12/04/23 Eze Brock Pastoral Care 12/13/23 Annette Walker, ELECTRICAL CONSTRUCTION PROJECT MANAGER Warehouse Operator 05/13/24 Batool Celis MD 1 [facility] [address] Radiation Oncologist Radiology-Radiation Oncology 06/08/24 documented as of this encounter
--- OUTSIDE RECORDS SUMMARY | 2025-05-12 12:13 | XMS_ITS | Encounter Summary ---
Author Organization [place] [address] Care Team Providers Care Guide Travel Name Role Phone Kit Cedeno MD Primary Care Provider [phone] Arlyn Schmidt MD Unavailable [phone] Cheryl Nair RN Unavailable [phone] Tacho Echavarria MD Unavailable [phone] Matt Ulrich MD Unavailable [phone] Hilary Clemens RN Unavailable Unavaila Eze Caro Unavailable Shila Albrecht RN Unavailable Unavail able Cheyanne To RN Unavailable Unavailabl Rayna Wong RN Unavailable Unavailab Shilpa Olivarez RN Unavailable [phone] Tulio Duong RN Unavailable Unavailable Yaquelin Weaver RN Unavailable Unavailable Pam Wang RN Unavailable Unavailable Jazmín Nair RN Unavailable Unavailable Fidel Rainey RN Unavailable Unavailable Cheryl Nair RN Unavailable [phone] Ophelia Lala RN Unavailable Glo Lee RN Unavailable Unavailab Sanam Evans SHIPPING HAND Unavailable Unavailable Hilary Clemens RN Unavailable Unavaila Ruthy Clayton RN Unavailable Unavailable Rayna Partida RN Unavailable Unavailab Artur Nelson RN Unavailable Unavailable Annette Walker SHIPPING HAND Unavailable [phone] Emmie Crain RN Unavailable Unavailable Brigida Enriquez RN Unavailable Unavailable Fidel Rainey RN Unavailable Unavailable Batool Celis MD Unavailable [phone] Ayush Marrero MD Primary Care Provider [phone] Encounter Details Date Type Department Care Team (Late st Contact Info) Description 10/25/2023 Orders Only [facility] [place] [address] Diane Ellis MD 1 [place], [...] Description 05/19/2025 2:15 PM EST Office Visit [address] [place] [address] Sin Tran MD [address] [place] [address] 06/08/2025 12:45 PM EST Procedure visit [facility] [address] [facility] [address] [place] [address] Samm Ledesma APRN [address] [facility] 100 [place] [address] 08/12/2025 10:40 AM EST Appointment [facility] Women's Wellness [facility] [address] [place] [address] Matt Ulrich MD [address] [place] [address] [address] [place] [id number] documented as of this encounter Goals Goal [...] Narrative [facility] - 11/11/2023 7:42 AM EDT Requesting Provider: KIT Womack Specimen = [id number] us Diane Ellis MD PATHOLOGY ORDERABLES Final Resul t [facility] 1 [place] [address] documented in this encounter Visit Diagnoses Not on filedocumented in this encounter Additional Health Concerns Infection Onset Date Last Indicated Resolved Time COVID-19 09/04/2024 09/04/2024 09/24/2024 10:1 2 PM EDT documented as of this encounter Care Teams Guide Travel Relationship Specialty [place] [address] [place] [address] PCP - General 06/21/10 03/08/25 Ayush Marrero MD [address] [place] [address] PCP - General Family Medicine 03/09/25 Arlyn Schmidt MD [address] [place] [address] Consulting Physician Internal Medicine-Endocrinolog y, Diabetes & Metabolism 11/28/20 Cehryl Nair, RN Oncology Nurse Navigator 10/29/2302/05 Tacho Echavarria MD 1 [place] [address] Internal Medicine-Medical Oncology 11/12/23 Matt Ulrich MD 1 [place] [address] Surgery-Surgical Oncology 12/04/23 Hilary Clemens, [...] Nurse Infusion Therapy 04/03/24 04/03/24 Sanam Murray, SHIPPING HAND Drafter Topographical 04/10/24 07/30/24 Hilary Clemens, RN Registered Nurse Infusion Therapy 04/21/24 04/21/24 Ruthy Walker RN Registered Nurse Infusion Therapy 04/24/24 04/24/24 Rayna Partida RN Registered Nurse Infusion Clinic 05/01/24 05/01/24 Artur Roberts RN Registered Nurse Infusion Therapy 05/07/24 05/07/24 Annette Walker, SHIPPING HAND Drafter Topographical 05/13/24 Emmie Crain, RN Registered Nurse Infusion Therapy 05/14/24 05/14/24 Brigida Enriquez, RN Registered Nurse Infusion Clinic 05/21/24 05/21/24 Fidel Rainey, RN Registered Nurse Infusion Therapy 05/28/24 05/28/24 Batool Celis MD [address] [place] [address] [place] [address] Radiation Oncologist Radiology-Radiation Oncology 06/08/24 documented as of this encounter
--- OUTSIDE RECORDS SUMMARY | 2025-05-12 12:13 | XMS_ITS | Encounter Summary ---
Author Organization [place] [address] Care Team Providers Care Economics Analyst Name Role Phone Chtena Cedeno MD Primary Care Provider [phone] Arlyn Schmidt MD Unavailable [phone] Tacho Echavarria MD Unavailable [phone] Matt Ulrich MD Unavailable [phone] Eze Brock Unavailable Shilpa Cline RN Unavailable [phone] Cheryl Nair RN Unavailable [phone] Ophelia Lala RN Unavailable Glo Lee RN Unavailable Unavailab Sanam Evans ADULT EDUCATOR Unavailable Unavailable Hilary Clemens RN Unavailable Unavaila Ruthy Clayton RN Unavailable Unavailable Rayna Partida RN Unavailable Unavailab Artur Nelson RN Unavailable Unavailable Annette Walker ADULT EDUCATOR Unavailable [phone] Emmie Crain RN Unavailable Unavailable Brigida Enriquez RN Unavailable Unavailable Fidel Rainey RN Unavailable Unavailable Batool Celis MD Unavailable [phone] Ayush Marrero MD Primary Care Provider [phone] Encounter Details Date Type Department Care Team (Late st Contact Info) Description 03/18/2024 Lab Requisition [facility] [place] [address] Provider, Unknown Malignant neoplasm of unspecified site [...] in a half-way (including now)? No 11/07/2023 Education Answer Date [...] Description 05/19/2025 2:15 PM EST Office Visit [facility] [address] [facility] [address] [place] [address] Sin Tran MD [address] [place] [address] 06/08/2025 12:45 PM EST Procedure visit [facility] [address] [facility] [address] [place] [address] Samm Ledesma APRN [address] [facility] 100 [place], [place] [id number] 08/12/2025 10:40 AM EST Appointment [facility] Women's Wellness [facility] [place] [id number] Matt Ulrich MD [address] [place] [address] 254 [place] [address] documented as of this encounter Goals Goal [...] EDT) CASE REPORT Surgical Pathology Report Case: [id number] Authorizing Provider: Provider, Unknown Collected: 03/18/2024 1327 Ordering Location: [facility] Received: 03/18/2024 1327 Pathologist: Diane Ellis MD Specimen: Breast, Right, Request for case [id number] slides to [facility]. 05/04/2024 1:26 PM EDT [facility] FINAL DIAGNOSIS Results will be scanned in this case as an addendum. 05/04/2024 1:26 PM EDT [facility] at 1329 EDT EMBEDDED IMAGES 05/04/2024 1:26 PM EDT [facility] ADDENDUM Refer to Scanned [facility] Surgical Pathology Report. 05/04/2024 1:26 PM EDT [facility] Addendum electronically signed by Diane Ellis MD on 05/04/2024 at 1326 EDT Tissue RIGHT BREAST STRUCTURE / Unknown 03/18/2024 1:27 PM EDT 03/18/2024 1:27 PM EDT us Unknown Provider PATHOLOGY ORDERABLES Edited Res ult - Final [facility] 1 [place] [address] documented in this encounter Visit Diagnoses Diagnosis Malignant neoplasm of unspecified site of right female breast (HCC) documented in this encounter Additional Health Concerns Infection Onset Date Last Indicated Resolved Time COVID-19 09/04/2024 09/04/2024 09/24/2024 10:1 2 PM EDT Assessment Noted Time PHQ-9 Depression Total Score: 12 024 12:00 PM EDT documented as of this encounter Care Teams Economics Analyst Relationship Specialty [place] [address] [place] [address] PCP - General 06/21/10 03/08/25 Ayush Marrero MD [address] [place] [address] PCP - General Family Medicine 03/09/25 Arlyn Schmidt MD [address] [place] [address] Consulting Physician Internal Medicine-Endocrinolog y, Diabetes & Metabolism 11/28/20 Tacho Echavarria MD 1 [place] [address] Internal Medicine-Medical Oncology 11/12/23 Matt Ulrich MD 1 [place], [place] [address] Surgery-Surgical Oncology 12/04/23 Eze Brock Pastoral Care 12/13/23 Shilpa Cline, RN Oncology Nurse Navigator 02/04/2403/09 Cheryl Nair, RN Oncology Nurse Navigator 03/25/2412/13 Ophelia Lala, RAUL Registered Nurse Infusion Therapy 03/27/24 03/27/24 Glo Lee, RN Registered Nurse Infusion Therapy 04/03/24 04/03/24 Sanam Murray MSW Jewel Hole Driller 04/10/24 07/30/24 Hilary Clemens, RN Registered Nurse Infusion Therapy 04/21/24 04/21/24 Ruthy Walker RN Registered Nurse Infusion Therapy 04/24/24 04/24/24 Rayna Partida, RN Registered Nurse Infusion Clinic 05/01/24 05/01/24 Artur Roberts RN Registered Nurse Infusion Therapy 05/07/24 05/07/24 Annette Walker, [facility] Jewel Hole Driller 05/13/24 Emmie Crain, RAUL Registered Nurse Infusion Therapy 05/14/24 05/14/24 Brigida Enriquez, RAUL Registered Nurse Infusion Clinic 05/21/24 05/21/24 Fidel Rainey, RN Registered Nurse Infusion Therapy 05/28/24 05/28/24 Batool Celis MD 1 [facility] [place] [address] Radiation Oncologist Radiology-Radiation Oncology 06/08/24 documented as of this encounter
--- OUTSIDE RECORDS SUMMARY | 2025-05-12 12:13 | XMS_ITS | Encounter Summary ---
Author Organization [place] Address [facility]ep [facility] [place] [address] Care Team Providers Care Senior Attorney Name Role Phone Chetna Cedeno MD Primary Care Provider Arlyn Schmidt MD Unavailable [phone] Tacho Echavarria MD Unavailable Matt Ulrich MD Unavailable Eze Brock Unavailable Cheryl Nair RN Unavailable Sanam Murray BUILDING MAINTENANCE MECHANIC Unavailable Unavailable Annette Walker BUILDING MAINTENANCE MECHANIC Unavailable [phone] Batool Celis MD Unavailable [phone] Ayush Marrero MD Primary Care Provider [phone] Encounter Details Date Type Department Care Team (Late st Contact Info) Description 07/06/2024 Orders Only [facility] [place] [address] Shilpa Tan MD [address] [place] [address] [phone] Social History Tobacco Use Types Packs/Day Years [...] [facility] - Occupational Stress Questionnaire Answer [...] in the past 12 [facility], were you homeless or living in a mcfp (including now)? No 11/07/2023 [facility] IP Transportation Answer D [...] 07/06/2024 4:32 PM Kayla Lee RN * [place] Suicide Severity Rating Scale (Q shift for [...] PM EST Office Visit [facility] [address] [facility] [address] [place] [address] Sin Tran MD [address] [place] [address] 06/08/2025 12:45 PM EST Procedure visit [facility] [address] [facility] [address] [place], [place] [id number] Samm Ledesma, LEYLA [address] [facility] [address] [place], [place] [id number] 08/12/2025 10:40 AM EST Appointment [facility] Women's Wellness [facility] [place] [id number] Matt Ulrich MD [address] [place] [address] [address] [place] [address] documented as of this encounter Goals Goal [...] Procedure Name Priority Date/Time Associated Diagnosis Comments NEOMusiwave BREAST PANEL (3 STAIN) Routine 07/06/2024 12:51 PM EST documented in this encounter Results * NEOGENOMICS BREAST PANEL (3 STAIN) (07/06/2024 12:51 PM EST) 07/06/2024 12:5 1 PM EST Narrative [facility] - 09/24/2024 2:57 PM EDT Requesting Provider: MATT Womack Specimen = [id number] us Shilpa Tan MD PATHOLOGY ORDERABLES Final R esult [facility] 1 [place], [place] [id number] documented in this encounter Visit Diagnoses Not on filedocumented in this encounter Additional Health Concerns Infection Onset Date Last Indicated Resolved Time COVID-19 09/04/2024 09/04/2024 09/24/2024 10:1 2 PM EDT Assessment Noted Time PHQ-9 Depression Total Score: 12 024 12:00 PM EDT documented as of this encounter Care Teams Senior Attorney Relationship Specialty [place] [address] [place] [address] PCP - General 06/21/10 03/08/25 Ayush Marrero MD [address] [place] [address] PCP - General Family Medicine 03/09/25 Arlyn Schmidt MD [address] [place] [address] Consulting Physician Internal Medicine-Endocrinology , Diabetes & Metabolism 11/28/20 Tacho Echavarria MD 1 [place], [place] [id number] Internal Medicine-Medical Oncology 11/12/23 Matt Ulrich MD 1 [place] [address] Surgery-Surgical Oncology 12/04/23 Eze Brock Pastoral Care 12/13/23 Cheryl Nair, RN Oncology Nurse Navigator 03/25/2412/13 Sanam Murray MSW Musical Instrument Maker 04/10/24 07/30/24 Annette Walker MSW Musical Instrument Maker 05/13/24 Batool Celis MD 1 [facility] [place] [address] Radiation Oncologist Radiology-Radiation Oncology 06/08/24 documented as of this encounter
[2025-05-12 12:23] LABS: Alanine Aminotransferase 15 U/L (12-78); Albumin Level 4.0 g/dl (3.5-5.0); Albumin/Globulin Ratio 1.4 (1.1-1.8); Alkaline Phosphatase 104 U/L (38-126); Amylase 57 U/L (30-110); Anion Gap 9.6 mEq/L (5-15); Aspartate Amino Transferase 25 U/L (14-36); Bilirubin,Total 0.6 mg/dl (0.2-1.3); Blood Urea Nitrogen 11 mg/dl (7-17); Calcium 9.1 mg/dl (8.4-10.2); Carbon Dioxide 24 mmol/L (22.0-30.0); Chloride 105 mmol/L (98-107); Creatinine,Serum 0.90 mg/dl (0.52-1.04); Estimated Glomerular Filt Rate 65 ml/min (>60); GFR (African American) 78 ML/MIN (>60); Globulin 2.9 g/dL (1.3-3.2); Glucose 112 mg/dl (74-100); Lipase 68 U/L (23-300); Potassium 3.6 mmoL/L (3.5-5.1); Sodium 135 mmol/L (136-145); Total Protein,Serum 6.9 g/dl (6.3-8.2)
== END 2025-05-12 23:59 | disposition home or self-care (01) ==
PROVIDERS: PCP Family Medicine; Visit Provider Internal Medicine Medical Oncology
DX: D05.11 Intraductal carcinoma in situ of right breast (principal)
CPT/HCPCS: 36415; 80053; 82150; 83690; 85025

== ENCOUNTER 2025-06-01 12:13 | Outpatient (CLI) | payer MEDICAID, SELFPAY ==
--- OUTSIDE RECORDS SUMMARY | 2025-04-09 13:46 | XMS_ITS | Encounter Summary ---
Author Organization [place] [address] Care Team Providers Care Security Police Officer Name Role Phone Arlyn Schmidt MD Unavailable [phone] Tacho Echavarria MD Unavailable [phone] Matt Ulrich MD Unavailable [phone] Eze Brock Unavailable Annette Walker RAM PRESS OPERATOR Unavailable [phone] Batool Celis MD Unavailable [phone] Ayush Marrero MD Primary Care Provider [phone] Reason for Referral * MRI/CAT Scan (Emergency) - Closed Specialty Diagnoses / Procedures Referred By Contac t Referred To Contact Radiology Diagnoses Intraductal carcinoma in situ of right breast Procedures MRI BRAIN ATTN PITUITARY W WO CONTRAST MRI BRAIN W WO CONTRAST Adryan Rowan MD [address] [facility] [address] [place] [address] Phone: tel: fax: [facility] [address] [place] [address] Phone: tel: Referral ID Status Reason Start Date Expiration Date Visits Re quested Visits Authorized [id number] Closed 03/22/2025 03/22/2026 1 1 Reason for Visit * MRI/CAT Scan (Emergency) - Closed Specialty Diagnoses / Procedures Referred By Van t Referred To Contact Radiology Diagnoses Intraductal carcinoma in situ of right breast Procedures MRI BRAIN ATTN PITUITARY W WO CONTRAST MRI BRAIN W WO CONTRAST Adryan Rowan MD [address] [facility] [address] [place] [address] Phone: tel: fax: [facility] [address] [place] [address] Phone: tel: Referral ID Status Reason Start Date Expiration Date Visits Re quested Visits Authorized [id number] Closed 03/22/2025 03/22/2026 1 1 Encounter Details Date Type Department Care Team (Late st Contact Info) Description 04/09/2025 2:46 PM EDT - 04/09/2025 11:59 PM EDT Hospital Encounter [facility] [address] [place] [address] Adryan Rowan MD [address] [facility] [address] [place] [id number] Intraductal carcinoma in situ of right breast [...] Recorded In the past 12 months has [employer], gas, oil, or water company threatened to [...] 07/07/2024 [facility] of Occupat ional [facility] - Occupational Stress Questionnaire Answer [...] a skilled nursing (including now)? No 11/07/2023 [facility] IP Transportation Answer D [...] Care Team (Late st Contact Info) Description 06/08/2025 12:45 PM EST Procedure visit [facility] [address] [facility] [address] [place] [address] Samm Ledesma, MISSILE MECHANIC [address] [address] [place] [address] 08/12/2025 10:40 AM EST Appointment [facility] Women's Wellness [facility] [place] [address] Matt Ulrich MD [address] [place] [address] [address] [place] [address] 09/08/2025 2:15 PM EST Office Visit [facility] [address] [place] [address] [address] [place] [address] Sin Tran MD [address] [place] [address] documented as of this encounter Goals Goal Patient Goal Type Associated Problems Recent Progress Patient-Stated? Author Blood Pressure < 140/90 Blood Pressure 148/95(05/19 2:34 PM EST) No Chetna Cedeno MD [facility] On track(2024 11:27 AM EDT) No Jasmin Porter, RAUL Note: Patient acknowledges understanding of new diagnosis, plan of care, available resources and how to contact Nurse Navigator with any future questions or concerns. [facility] Not on track(2024 11:27 AM EDT) No Jasmin Porter, RAUL Note: Patient will be compliant with monthly SBE and is aware of who to contact for any unusual or concerning findings. [facility] On track(2024 11:27 AM EDT) [...] HISTORY: D05.11-Intraductal carcinoma in situ of right [id number]-BYD-50-CM. COMPARISON: CT brain 01/12/2024, MRI 01/06/2024 and [...] HISTORY: D05.11-Intraductal carcinoma in situ of right [id number]-TRS-74-CM. COMPARISON: CT brain 01/12/2024, MRI 01/06/2024 and dating back to05/01/2018. PROCEDURE COMMENTS: Multiplanar sequences obtained with and withoutGadolinium contrast as recorded in Epic.. Sequences include thin section precontrastand dynamic post contrast coronal T1 images through the sella. FINDINGS: Redemonstrated is a lesion along the superior aspect of the pituitarygland measuring approximately 9 mm across with a crescentic anterior [id number] component. This lesion otherwise appears filled by [...] documented as of this encounter Care Teams Security Police Officer Relationship Specialty Start Date End Date Ayush Marrero MD [address] [place] [address] PCP - General Family Medicine 03/09/25 Arlyn Schmidt MD [address] [place], [place] [id number] Consulting Physician Internal Medicine-Endocrinology, Diabetes & Metabolism 11/28/20 Tacho Echavarria MD 1 [place] [phone] Internal Medicine-Medical Oncology 11/12/23 Matt Ulrich MD 1 [place], [place] [id number] Surgery-Surgical Oncology 12/04/23 Eze Brock Pastoral Care 12/13/23 Annette Walker, ARACELI Sprinkler Driver 05/13/24 Batool Celis MD 1 [facility] [place] [address] Radiation Oncologist Radiology-Radiation Oncology 06/08/24 documented as of this encounter
--- OUTSIDE RECORDS SUMMARY | 2025-05-19 14:15 | XMS_ITS | Encounter Summary ---
Author Organization [place] [address] Care Team Providers Care Pantry Chef Name Role Phone Arlyn Schmidt MD Unavailable [phone] Tacho Echavarria MD Unavailable [phone] Matt Ulrich MD Unavailable [phone] Eze Brock Unavailable Annette Walker WALLPAPER EMBOSSER HELPER Unavailable [phone] Batool Celis MD Unavailable [phone] Ayush Marrero MD Primary Care Provider [phone] Reason for Visit * Reason Comments Follow-up Back Pain Encounter Details Date Type Department Care Team (Late st Contact Info) Description 05/19/2025 2:15 PM EST Office Visit [facility] [address] [address] Sin Tran MD [address] [place] [address] Chronic pain syndrome (Primary Dx) Social [...] pharmacy? Never 11/07/2023 [facility] Utilities Answer Date Recorded In the [...] in a mcc (including now)? No 11/07/2023 [facility] IP Transportation Answer D ate Recorded [...] No 12/06/2022 2:08 PM EDT MarvbettyMacarena CCMA * Does this person have difficulty dressing or bathing? Answer Date of Assessment Author No 12/06/2022 2:08 PM EDT AaliyahmasonMacarena CCMSharonda * Because of a physical, mental [...] therapy. Recently rediagnosed with breast cancer. The Tapat[employer] analyzer was used to interrogate the SynchroMed [...] pain Sin Tran MD Interventional Pain Management [facility] documented in this encounter Plan of Treatment Upcoming Encounters Date Type Department Care Team (Late st Contact Info) Description 06/08/2025 12:45 PM EST Procedure visit [facility] [address] [facility] [address] [place] [address] Samm Ledesma APRN [address] [facility] [address] [place] [address] 08/12/2025 10:40 AM EST Appointment [facility] Women's Wellness [place] [address] Matt Ulrich MD [address] [place] [address] [address] [place] [address] 09/08/2025 2:15 PM EST Office Visit [facility] Spine [facility] [address] [place] [address] [address] [place] [address] Sin Tran MD [address] [place] [address] documented as of this encounter Goals [...] documented as of this encounter Care Teams Pantry Chef Relationship Specialty Start Date End Date Ayush Marrero MD [address] [place] [address] PCP - General Family Medicine 03/09/25 Arlyn Schmidt MD [address] [place] [address] Consulting Physician Internal Medicine-Endocrinology, Diabetes & Metabolism 11/28/20 Tacho Echavarria MD [address] [place] [address] Internal Medicine-Medical Oncology 11/12/23 Matt Ulrich MD 1 [place] [address] Surgery-Surgical Oncology 12/04/23 Eze Brock Pastoral Care 12/13/23 Annette Walker, [facility] Housekeeper Caregiver 05/13/24 Batool Celis MD [address] [facility] [address] Radiation Oncologist Radiology-Radiation Oncology 06/08/24 documented as of this encounter
--- OUTSIDE RECORDS SUMMARY | 2025-06-01 12:16 | XMS_ITS | Encounter Summary ---
[place] [address] Care Team Providers Care Bone Puller Name Role Phone Chetna Cedeno MD Primary Care Provider [phone] Arlyn Schmidt MD Unavailable [phone] Tacho Echavarria MD Unavailable [phone] Matt Ulrich MD Unavailable [phone] Eze Brock Unavailable Cheryl Nair RN Unavailable Annette Walker PRODUCT PROMOTER SALES PERSON Unavailable [phone] Batool Celis MD Unavailable [phone] Ayush Marrero MD Primary Care Provider [phone] Encounter Details Date Type Department Care Team (Late st Contact Info) Description 09/11/2024 Lab Requisition [facility] [place] [address] Beata Kebede MD [address] [place] [id number] Social History Tobacco Use Types Packs/Day Years [...] Score 5 07/07/2024 [facility] Stress Questionnaire Answer [...] in a [facility] (including now)? No 11/07[facility]2023 [facility] IP Transportation [...] HECTOR [address] [facility] [address] [place] [address] Samm Ledesma APRN [address] [place] [address] 08/12/2025 10:40 AM EST Appointment [facility] [place] [address] Matt Ulrich MD [address] [place] [address] [address] [place] [address] 09/08/2025 2:15 PM EST Office Visit [address] [facility] [address] [place] [address] Sin Tran MD [address] [place] [address] documented as of this encounter Goals [...] EST) CASE REPORT Surgical Pathology Report Case: [id number] Authorizing Provider: Beata Kebede MD Collected: 09/11/2024 1313 Ordering Location: [facility] Received: 09/11/2024 1313 Pathologist: Diane Ellis MD Specimen: Breast, Request for cases [id number], [id number] slides to [facility]. 09/15/2024 12:14 PM EDT [facility] FINAL DIAGNOSIS Results will be scanned in this case as an addendum. 09/15/2024 12:14 PM EDT [facility] at 1338 EST EMBEDDED IMAGES 09/15/2024 12:14 PM EDT [facility] ADDENDUM Refer to Scanned [facility] Report for [id number] & [id number]. 09/15/2024 12:14 PM EDT [facility] Addendum electronically signed by Diane Ellis MD on 09/15/2024 at 1214 EDT Tissue BREAST STRUCTURE / Unknown 09/11/2024 1:13 PM EST 09/11/2024 1:13 PM EST us Beata Kebede MD PATHOLOGY ORDERABLES Edited R esult - Final [facility] [address] [place] [id number] documented in this encounter Visit Diagnoses Not on filedocumented in this encounter Additional Health Concerns Infection Onset Date Last Indicated Resolved Time COVID-19 09/04/2024 09/04/2024 09/24/2024 10:1 2 PM EDT Assessment Noted Time PHQ-9 Depression Total Score: 17 024 8:39 AM EST PHQ-2 Depression Total Score: 5 07/07/20 24 8:39 AM EST documented as of this encounter Care Teams Bone Puller Relationship Specialty [place] [address] [place] [address] PCP - General 06/21/10 03/08/25 Ayush Marrero MD [address] [place] [address] PCP - General Family Medicine 03/09/25 Arlyn Schmidt MD [address] [place], [place] [id number] Consulting Physician Internal Medicine-Endocrinology , Diabetes & Metabolism 11/28/20 Tacho Echavarria MD [address] [place], [place] [id number] Internal Medicine-Medical Oncology 11/12/23 Matt Ulrich MD [address] [place] [address] Surgery-Surgical Oncology 12/04/23 Eze Brock Pastoral Care 12/13/23 Cheryl Nair, RN Oncology Nurse Navigator 03/25/2412/13 Annette Walker, PRODUCT PROMOTER SALES PERSON [employer] 05/13/24 Batool Celis MD [address] [place] [address] Radiation Oncologist Radiology-Radiation Oncology 06/08/24 documented as of this encounter
--- OUTSIDE RECORDS SUMMARY | 2025-06-01 12:17 | XMS_ITS | Encounter Summary ---
Author [place] [address] Care Team Providers Care Billboard Mechanic Name Role Phone Chetna Cedeno MD Primary Care Provider [phone] Leslie Cooley SOX ANALYST Unavailable UnaBatool Talley CORPORATE COMPLIANCE OFFICER Unavailable Unavailab Arlyn Disla MD Unavailable [phone] Cheryl Nair RN Unavailable [phone] Tacho Echavarria MD Unavailable [phone] Matt Ulrich MD Unavailable [phone] Hilary Clemens RN Unavailable Unavaila Eze Caro Unavailable Shila Albrecht RN Unavailable Unavail able Cheyanne To RN Unavailable UnavailRayna Johnson RN Unavailable Unavailab Shilpa Olivarez RN Unavailable [phone] Tulio Duong RN Unavailable Unavailable Yaquelin Weaver RN Unavailable Unavailable Pam Wang RN Unavailable Unavailable Jazmín Nair RN Unavailable Unavailable Fidel Rainey RN Unavailable Unavailable Cheryl Nair RN Unavailable [phone] Ophelia Lala RN Unavailable Glo Lee RN Unavailable Unavailab Sanam Evans WINDOWS MIGRATION TECHNICIAN Unavailable Unavailable Hilary Clemens RN Unavailable Unavaila Ruthy Clayton RN Unavailable Unavailable Rayna Partida RN Unavailable Unavailab Artur Nelson RN Unavailable Unavailable Annette Walker WINDOWS MIGRATION TECHNICIAN Unavailable [phone] Emmie Crain RN Unavailable Unavailable Brigida Enriquez RN Unavailable Unavailable Fidel Rainey RN Unavailable Unavailable Batool Celis MD Unavailable [phone] Ayush Marrero MD Primary Care Provider [phone] Encounter Details Date Type Department Care Team (Late st Contact Info) Description 07/12/2015 Orders Only [facility] [address] [facility] [address] [place] [address] Stone Cronin MD Social History [...] [facility] [address] [place] [address] Samm Ledesma, REGIONAL TRAINING MANAGER [address] [facility] [address] [place] [address] 08/12/2025 10:40 AM EST Appointment [facility] [place] [address] Matt Ulrich MD [address] [place] [address] 09/08/2025 2:15 PM EST Office Visit [facility] [address] [place] [address] Sin Tran MD [address] [facility] [place] [address] documented as of this encounter Procedures Procedure Name Priority Date/Time Associated Diagnosis Comments GMED COLONOSCOPY Routine 07/12/2015 2:3 0 PM EST documented in this encounter Results [...] ORDERABLES Doris mcmahon Result Performing Organization Address City/State/[facility] Co de Phone Number [facility] [address] [place] [address] documented in this encounter Visit Diagnoses Not [...] documented as of this encounter Care Teams Billboard Mechanic Relationship Specialty [place] [address] [place] [address] PCP - General 06/21/10 03/08/25 Ayush Marrero MD [address] [place] [address] PCP - General Family Medicine 03/09/25 Leslie Cooley, SOX ANALYST Secured Entrance Monitor 01/28/19 07/15/19 Batool Myers, CORPORATE COMPLIANCE OFFICER Secured Entrance Monitor 02/13/19 07/15/19 Arlyn Schmidt MD [address] [place] [address] Consulting Physician Internal Medicine-Endocrinolog y, Diabetes & Metabolism 11/28/20 Cheryl Nair, RAUL Oncology Nurse Navigator 10/29/2302/05 Tacho Echavarria MD 1 [place] [address] Internal Medicine-Medical Oncology 11/12/23 Matt Ulrich MD 1 [place] [address] Surgery-Surgical Oncology 12/04/23 Hilary Clemens, [...] Yaquelin Weaver, RN Registered Nurse 02/13/24 02/13/24 Pma Wang, RN Registered Nurse Infusion Therapy 02/20/24 02/20/24 Jazmín Nair, RN Registered Nurse Infusion Therapy 02/27/24 02/27/24 Fidel Rainey, RN Registered Nurse Infusion Therapy 03/05/24 03/05/24 Cheryl Nair RN Oncology Nurse Navigator 03/25/2412/13 Ophelia Lala, RN Registered Nurse Infusion Therapy 03/27/24 03/27/24 Glo Lee, RN Registered Nurse Infusion Therapy 04/03/24 04/03/24 Sanam Murray, [facility] Secured Entrance Monitor 04/10/24 07/30/24 Hilary Clemens, RN Registered Nurse Infusion Therapy 04/21/24 04/21/24 Ruthy Walker RN Registered Nurse Infusion Therapy 04/24/24 04/24/24 Rayna Partida, RN Registered Nurse Infusion Clinic 05/01/24 05/01/24 Artur Roberts RN Registered Nurse Infusion Therapy 05/07/24 05/07/24 Annette Walker, WINDOWS MIGRATION TECHNICIAN Secured Entrance Monitor 05/13/24 Emmie Crain, RN Registered Nurse Infusion Therapy 05/14/24 05/14/24 Brigida Enriquez, RN Registered Nurse Infusion Clinic 05/21/24 05/21/24 Fidel Rainey, RN Registered Nurse Infusion Therapy 05/28/24 05/28/24 Batool Celis MD [address] [place] [address] [place] [address] Radiation Oncologist Radiology-Radiation Oncology 06/08/24 documented as of this encounter
--- OUTSIDE RECORDS SUMMARY | 2025-06-01 12:17 | XMS_ITS | Clinical Summary ---
Author Organization [facility] Address [address] [place], [place] [address] Phone Care Team Providers Care Scale Balancer Name Role Phone Arlyn Schmidt MD Unavailable [phone] Tacho Echavarria MD Unavailable [phone] Matt Ulrich MD Unavailable [phone] Eze Brock Unavailable Annette Walker TAX REVENUE OFFICER Unavailable [phone] Batool Celis MD Unavailable [phone] Ayush Marrero MD Primary Care Provider [phone] Allergies Active Allergy Reactions Criticality Noted Date [...] (AEROCHAMBER MV) Misc Spacer 1 Each by [facility]Non-Drug; Combo Route) route as needed. [...] Active fluticasone propionate (FLONASE) 50 mcg/actuation Nasl Canadian, Suspension 1 Canadian by Nasal route daily. 1 Each 07/03/20 [...] Patient not taking.Reason: Therapy Completed, Reported on 05/19/2025 Active Problems Patient Care Coordination No te Formatting of this note migh t be different from the original. [facility] - Sin Tran MD Controlled Substance Protocol Completed: A. Informed Consent Statement signed (Yearly) 07/24/2023 B. Controlled Substance Agreement signed (Yearly) 07/24/2023 C. Comprehensive Urine Drug Screen was performed (Minimum YEARLY ) ( 07/24/2023 ) D. Josh report completed (EVERY 3 MONTHS) (05/17/2025) E. Screening tool for addiction (SOAPP) completed (YEARLY) F. Need for controlled substance is documented (EVERY VISIT) G. Pain Scale and or Functional capacity documented (EVERY VISIT) (05/19/2025) Pharmacy: [address] [address] [facility] [phone] AIS POA: 02/10/2025 josh as expected #[id number] Josh 08-05-2018 adm Josh 08-14-18 adm UDS 08-08-18 adm Care gap audit completed by Medina White RN on 01/01/2022. 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 I doubt the patient has underlying [place]'s disease. We will proceed with the work-up [...] Encounters Date Type Department Care Team Description 05/28/2025 Telephone SEP Neurology [facility] [address] [place] [address] Yonatan Babcock MD Prior Authorization 05/25/2025 Telephone SE[facility] Neurology [place] [address] [place] [address] Samm Ledesma APRN Referral (Transfer of care) 05/19/2025 2:15 PM EST Office Visit [address] [address] Sin Tran MD Chronic pain syndrome (Primary Dx) 04/27/2025 Patient Outreach SE[facility] Neurology [facility] [address] [place] [address] Samm Ledesma APRN Botox Injection (Due 06/02/25) 04/23/2025 Telephone [facility] [place] [id number] Josie Almaraz, Clerical Staff Cancelled Appointment (For 04/29/25 with [facility] (6 month f/u)) 04/23/2025 Specialty Pharmacy [facility] [address] [place] [address] Annamarie Mark CPhT Pharmacy Migraine Medication Management (Qulipta) 04/09/2025 2:46 PM EDT - 04/09/2025 11:59 PM EDT Hospital Encounter [facility] [address] [place] [address] Adryan Rowan MD Intraductal carcinoma in situ of right breast Discharge Disposition: Home or Self Care 04/09/2025 Telephone [facility] [place], [place] [id number] Adryan Rowan MD Information Only (MRI order ) 04/02/2025 [facility]phone [facility] [place] [address] Tacho Echavarria MD Schedule Appointment (Call from Dr. Rowan's office to schedule MRI ) 03/30/2025 Specialty Pharmacy [facility] [address] [place] [address] Charlotte Martino, [facility] Migraine Medication Management (Qulipta/Nurtec) 03/24/2025 1:33 PM EDT - 03/24/2025 11:59 PM EDT Hospital Encounter [facility] [place] [id number] Tacho Echavarria MD Invasive ductal carcinoma of [...] EDT Hospital Encounter [facility] [place] [id number] Tacho Echavarria MD Invasive ductal carcinoma of breast, female, right (HCC) (Primary Dx) Discharge Disposition: Home or Self Care 03/24/2025 Telephone [facility] [place] [id number] Tacho Echavarria MD 03/23/2025 Social Work [facility] Cancer Care [facility] 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); Intraductal carcinoma in situ of right breast Discharge Disposition: Home or Self Care 03/10/2025 1:30 PM EDT Procedure visit [facility] [address] [place] [address] Krissy Rhodes APRN Chronic migraine without aura, intractable, with status migrainosus (Primary Dx) Discharge Disposition: Home or Self Care 03/09/2025 Telephone [facility] [place], [place] [phone] Tacho Echavarria MD 03/04/2025 Orders Only [facility] [place] [address] Tacho Echavarria MD Invasive ductal carcinoma of breast, female, right (HCC) (Primary Dx) 03/04/2025 Telephone [facility] [address] [place] [address] Linda Osborne MD Medication Refill 03/02/2025 Telephone [facility] [address] [place] [address] Arlyn Schmidt MD Paperwork/forms (paperwork received from [facility]) from Last 3 Months Immunizations Immunization Administration [...] STIMULATOR IMPLANT; Surgeon: Munir Hilton MD; Location: [facility] MAIN OR; Service: Pain Management Medical devices from this surgery are in the Medical Devices section. 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 Diabetes Brother 2 Diabetes Brother 3 Yonatan [place] Diabetes Brother 4 My oldest son [place] Man Diabetes Father Jorge Cole Diabetes for 30 years now. Unknown Father Jorge Cole Parkinson's Disease Maternal Grandfather Nevaeh Mirza cloth examiner Diabetes Maternal Grandmother Gris Mirza Arthritis Mother Lori [place] Unknown Mother Lori [place] Bipolar Disorder Son Depression Son Diabetes Son Anesth Problems Neg Hx Colon Cancer Neg Hx Esophageal Cancer Neg Hx Liver Cancer Neg Hx Liver Disease Neg Hx Rectal Cancer Neg Hx Stomach Cancer Neg Hx Relation Name Status Comments Brother 1 Jase Cole Brother 2 Alive Brother 3 Yonatan Cole Alive Brother 4 My oldest son Nikita Man Alive Father Jorge Cole Alive Maternal Grandfather AlliEmilee Mirza Alive Maternal Grandmother Gris Mirza Alive Mother Lori [place]ano Alive Son Social History Tobacco Use Types [...] Recorded In the past 12 months has [employer], [employer], or water company threatened to shut off [...] 07/07/2024 [facility] - Occupational Stress Questionnaire Answer Date [...] a skilled nursing (including now)? No 11/07/2023 [facility] IP Transportation Answer D [...] Pressure 148/95 05/19/2025 2:34 PM EST Pulse 85 03/24/2025 1:35 PM EDT Temperature 36.7 C (98.1 F) 03/24/2025 1:35 PM EDT Respiratory Rate 18 05/19/2025 2:02 PM EST Oxygen Saturation 98% 03/24/2025 1:35 PM EDT Inhaled Oxygen Concentration - - Weight 81.6 kg (180 lb) 03/24/2025 1:35 PM EDT Height 160 cm (5' 3 ) 03/24/2025 1:35 PM EDT Body Mass Index 31.89 03/24/2025 1:35 PM EDT Plan of Treatment Upcoming Encounters Date Type Department Care Team (Late st Contact Info) Description 06/08/2025 12:45 PM EST Procedure visit [facility] [address] [facility] [address] [place] [address] Samm Ledesma, CENTRAL CONTROL ROOM OPERATOR [address] [place] [address] 08/12/2025 10:40 AM EST Appointment [facility] [place] [address] [place] [address] Matt Ulrich MD [address] [place] [address] 09/08/2025 2:15 PM EST Office Visit [facility] [address] [place] [address] Sin Tran MD [address] [facility] [place] [address] Health Maintenance Due Date Last Done Comments [...] Vaccine ( season) 2025 05/10/2021, 10/19/2020, 09/28/2020 Colon Cancer Screening 07/12/2025 Colonoscopy 07/12/2025 07/12/2015 Breast Cancer Screening 01/26/2026 01/27/20 24, 10/14/2023, 05/30/2021, Additional history exists Pneumococcal Vaccine 50+ Completed 03/26/2022, 04/07 Influenza Vaccine Completed 04/26/2025, , 03/27/2023, Additional history exists Meningococcal B Vaccine Aged Out No l bettyger eligible based on patient's age to complete this topic Goals Goal Patient Goal Type Associated Problems Recent Progress Patient-Stated? Author Blood Pressure < 140/90 Blood Pressure 148/95(05/19 2:34 PM EST) No Chetna Cedeno MD Breast [facility] Breast Health On track(2024 11:27 AM EDT) No Jasmin Porter, RN Note: Patient acknowledges understanding of new diagnosis, plan of care, available resources and how to contact Nurse Navigator with any future questions or concerns. Breast [facility] Breast [facility] Not on track(2024 11:27 AM EDT) No Jasmin Porter, RAUL Note: Patient will be compliant with monthly SBE and is aware of who to contact for any unusual or concerning findings. Breast [facility] Breast Health On track(2024 11:27 AM EDT) No Demi Garibay, RN Note: Patient will be compliant with taking Aromatase Inhibitor daily and understands who to contact to discuss any side effects or complications. Maintain a healthy diet, exercise regularly and maintain an ideal body weight General No Sanam Julio MA Medical Devices Implanted Type Area Passenger Vessel Chef Device Identifier Shelf Expiration Date Model / Serial / Lot Kit Acc .133in Injex Didi Baso4 Biwing Flxb Rem Tl Preld - [id number] Implanted:Qty: 1 on 02/24/2020 by Munir Hilton MD at [facility] N/A: Back [employer]:NEURO 10/28/2023 [id number] / / [id number] Neurostimulator Rechar Adapt-Stim Sure Scan Intellis - [id number] Implanted:Qty: 1 on 02/24/2020 by Munir Hilton MD at [facility] N/A: Back [employer]:NEURO 12/19/2020 [id number] / [id number] / Kit Lead Percutaneous Mri Surescan Vectris 1x8 60cm - [id number] Implanted:Qty: 1 on 02/24/2020 by Munir Hilton MD at [facility] N/A: Back [employer]:NEURO 09/09/2023 [id number] / / [id number] Kit Lead Percutaneous Mri Surescan Vectris 1x8 60cm - [id number] Implanted:Qty: 1 on 02/24/2020 by Munir Hilton MD at [facility] N/A: Back [employer]:NEURO 10/08/2023 [id number] / / [id number] Device Suturing Mechanical Fixate Tissue Band - [id number] Implanted:Qty: 1 on 02/24/2020 by Munir Hilton MD at [facility] NA: Back [employer]:NEUROMODULA TION 02/03/2024 FB- / / [id number] Device Suturing Mechanical Fixate Tissue Band - [id number] Implanted:Qty: 1 on 02/24/2020 by Munir Hilton MD at [facility] N/A: Back [employer]:NEUROMODULA TION 02/03/2024 FB-- / / [id number] Envelope Absorbable Tyrx Polyarylate Medium 2.7in X 2.5in - [id number] Implanted:Qty: 1 on 02/24/2020 by Munir Hilton MD at [facility] N/A: Back [employer]:NEURO 12/03/2020 [id number] / / [id number] Device Sut Fixate Anchr Ld Tiss Bnd [id number] - [id number] Implanted:Qty: 1 on 01/04/2021 by Munir Hilton MD at [facility] N/A: Back [employer]:NEUROMODULA TION [id number] 10/25/2024 FB- / / [id number] Cath It 1-Pc 114cm 86cm Didi 4-Lyr Sut-Ls Steward/Stewardess Night Conn Lng Spin - [id number] Implanted:Qty: 1 on 01/04/2021 by Munir Hilton MD at [facility] N/A: Back [employer]:NEURO 12/10/2022 [id number] / / [id number] Pump It 2.5mm [id number] Flxb Synchromed Ii Rsvr Bk - [id number] Implanted:Qty: 1 on 01/04/2021 by Munir Hilton MD at [facility] N/A: Back [employer]:NEURO 01/02/2022 [id number] / [id number] / Port Infs 8fr Sarah 1.6x2.6mm Xcela Pwr Inj Lpro Ti Pu-11/29/2023 Implanted:Qty: 1 on 11/29/2023 by Joselito Goodwin MD [facility] [id number] / / [id number] Procedures Procedure Name Priority Date/Time Associated Diagnosis [...] HISTORY: D05.11-Intraductal carcinoma in situ of right undhbz-LFQ-46-CM. COMPARISON: CT brain 01/12/2024, MRI 01/06/2024 and [...] mastoids are grossly unremarkable. Procedure Note David eBnavides MD - 04/09/2025 MRI BRAIN ATTN PITUITARY W WO CONTRAST 04/09/2025 3:35 PM CLINICAL HISTORY: D05.11-Intraductal carcinoma in situ of right lgfvme-QMJ-82-CM. COMPARISON: CT brain 01/12/2024, MRI 01/06/2024 and dating back to05/01/2018. PROCEDURE COMMENTS: Multiplanar sequences obtained with and withoutGadolinium contrast as recorded in Epic.. Sequences include thin section precontrastand dynamic post contrast coronal T1 images through the sella. FINDINGS: Redemonstrated is a lesion along the superior aspect of the pituitarygland measuring approximately 9 mm across with a crescentic anterior [id number] component. This lesion otherwise appears filled by [...] the ordering clinician. us Adryan Rowan MD [facility] [place] [place] MRI ORDERABLES Final Resul t * (ABNORMAL) CBC WITH DIFF (03/24/2025 1:29 PM EDT) WBC 3.9 3.7 - 10.3 x10(3)/mc L 03/24/2025 1:40 PM EDT [facility] RBC 2.92(L) 3.90 - 5.20 x10(6)/mc L 03/24/2025 1:40 PM EDT [facility] Hgb 9.7(L) 11.2 - 15.7 g/dL 03/24/2025 1:40 PM EDT [facility] Hct 28.2(L) 34.0 - 45.0 % 03/24/2025 1:40 PM EDT [facility] MCV 96.6 80.0 - 100.0 fL 03/24/2025 1:40 PM EDT [facility] MCH 33.2 26.0 - 34.0 pg 03/24/2025 1:40 PM EDT [facility] MCHC 34.4 30.7 - 35.5 g/dL 03/24/2025 1:40 PM EDT [facility] RDW 13.7 <=14.9 % 03/24/2025 1:40 PM EDT [facility] Platelet 197 155 - 369 x10(3)/mc L 03/24/2025 1:40 PM EDT [facility] MPV 8.9 8.8 - 12.5 fL 03/24/2025 1:40 PM EDT [facility] Neut # Prelim 2.3 1.6 - 6.1 x10(3)/mc L 03/24/2025 1:40 PM EDT [facility] Comment:Preliminary automate d absolute neutrophil count. Value may change if manual differential is indicated. Neut Percent 60.4 % 03/24/2025 1:40 PM EDT [facility] Comment:Neutrophils equals s egs plus bands Imm Gran% 0.3 % 03/24/2025 1:40 PM EDT [facility] Comment:Automated count of m etamyelocytes, myelocytes and promyelocytes. Lymph Percent 28.2 % 03/24/2025 1:40 PM EDT [facility] [place] Percent 8.5 % 03/24/2025 1:40 PM EDT [facility] Eos Percent 1.3 % 03/24/2025 1:40 PM EDT [facility] Baso Percent 1.3 % 03/24/2025 1:40 PM EDT [facility] Neut # 2.3 1.6 - 6.1 x10(3)/mc L 03/24/2025 1:40 PM EDT [facility] Comment:Neutrophils equals s egs plus bands IMMGRAN# 0.0 0.0 - 0.1 x10(3)/mc L 03/24/2025 1:40 PM EDT [facility] Comment:Automated count of m etamyelocytes, myelocytes and promyelocytes. An absolute IG <0.1 is reported as 0.0. Lymph # 1.1(L) 1.2 - 3.9 x10(3)/mc L 03/24/2025 1:40 PM EDT [facility] [place] # 0.3 0.3 - 0.9 x10(3)/mc L 03/24/2025 1:40 PM EDT [facility] Eos# 0.1 0.0 - 0.5 x10(3)/mc L 03/24/2025 1:40 PM EDT [facility] Baso # 0.1 0.0 - 0.1 x10(3)/mc L 03/24/2025 1:40 PM EDT [facility] Blood VENOUS STRUCTURE / Unknown Port / Unknown 03/24/2025 1:29 PM EDT 03/24/2025 1:35 PM EDT Tacho Echavarria MD HEMATOLOGY ORDERABLES Final Result [facility] [address] [place] [address] * (ABNORMAL) COMPREHENSIVE METABOLIC PANEL (03/24/2025 1:29 PM EDT) Sodium 140 136 - 145 mmol/L 03/24/2025 1:58 PM EDT [facility] Potassium 3.8 3.5 - 5.0 mmol/L 03/24/2025 1:58 PM EDT [facility] Chloride 104 98 - 107 mmol/L 03/24/2025 1:58 PM EDT [facility] Total CO2 23 22 - 29 mmol/L 03/24/2025 1:58 PM EDT [facility] Anion Gap 13 7 - 16 mmol/L 03/24/2025 1:58 PM EDT [facility] Calcium 9.1 8.6 - 10.4 mg/dL 03/24/2025 1:58 PM EDT [facility] Glucose Lvl 114(H) 70 - 99 mg/dL 03/24/2025 1:58 PM EDT [facility] BUN 14 6 - 20 mg/dL 03/24/2025 1:58 PM EDT [facility] Creatinine 0.81 0.51 - 1.30 mg/dL 03/24/2025 1:58 PM EDT [facility] Albumin 3.9 3.5 - 5.2 gm/dL 03/24/2025 1:58 PM EDT [facility] Total Protein 6.4 6.4 - 8.3 gm/dL 03/24/2025 1:58 PM EDT [facility] Bili Total 0.4 0.2 - 1.3 mg/dL 03/24/2025 1:58 PM EDT [facility] ALT 8 <=41 U/L 03/24/2025 1:58 PM EDT [facility] AST 14 <=40 U/L 03/24/2025 1:58 PM EDT [facility] Alk Phos 146(H) 36 - 123 U/L 03/24/2025 1:58 PM EDT [facility] eGFR (CKD-EPIcr 2020) 84 >=60 mL/min/1.7 3 m2 03/24/2025 1:58 PM EDT [facility] Comment:Estimated GFR was ca lculated using the CKD-EPIcr (2020) equation refit without race. The equation is recommended by the National Kidney Foundation - Citizen [place] Society of Nephrology Task Force. Blood VENOUS STRUCTURE / Unknown Port / Unknown 03/24/2025 1:29 PM EDT 03/24/2025 1:36 PM EDT Tacho Echavarria MD CHEMISTRY ORDERABLES Final Result [facility] [address] [place] [address] * PET CT SKULL BASE TO MID [...] (HCC)-ICD-10-CM D05.11-Intraductal carcinoma in situ of right nndybb-JBM-15-CM COMPARISON: PET/CT 11/09/2024. PROCEDURE COMMENTS: 14.7 mCi [...] (HCC)-ICD-10-CM D05.11-Intraductal carcinoma in situ of right vipqzu-ZTA-56-CM COMPARISON: PET/CT 11/09/2024. PROCEDURE COMMENTS: 14.7 mCi [...] - 100 mg/dL 03/18/2025 7:26 AM EDT [facility] Sample Type Capillary 03/18/2025 7:26 AM EDT [facility] Patient Status Non-Critical Patient 03/18/2025 7:26 AM EDT [facility] Blood BLOOD SPECIMEN / Unknown 03/18/2025 7:23 AM EDT 03/18/2025 7:26 AM EDT us Adryan Rowan MD POINT OF CARE TEST ORDERABLES Final Result [facility] [address] [place], [place] [address] [address] * MM MAMMO DIGITAL STEPHANE DIAGN RIGHT (01/27/2024 11:20 AM EDT) Anatomical Region Laterality Modality Breast Right Mammography 01/27/2024 12:5 7 PM EDT Impressions 01/27/2024 12:57 PM EDT Incomplete-need additional imaging evaluation (WVV-Dfgjeeqo-8) ~ RECOMMENDATION: Ultrasound of the right breast. [...] mammogram, in accordance with the [place] [employer] and the Society of [...] sinceprior. ~ IMPRESSION: Incomplete-need additional imaging evaluation (MNM-Kpsalppy-6) ~ RECOMMENDATION: Ultrasound of the right breast. [...] mammogram, in accordance with the [place] [employer] and the Society of Breast Imaging recommendations. Jeanette Smith APRN IMG MAMMOGRAPHY ORDERABLES Final Result * [facility] COLONOSCOPY (07/12/2015 2:30 PM EST) 07/12/2015 2:30 PM EST Impressions [facility] - 07/12/2015 3:30 PM EST Normal [...] MD GI PROCEDURE ORDERABLES Doris l Result [facility] [address] [place] [address] from Last 3 Months or Most Recently Relevant to Health Maintenance Insurance MDR MDR MDR Advance Directives For more information, please contact: [phone] * Full Code (Latest Code Status on File) Date Activated Date Inactivated Comments 05/01/2017 2:57 PM 05/03/2017 5:30 PM Care Teams Scale Balancer Relationship Specialty Start Date End Date Ayush Marrero MD [address] [place] [address] PCP - General Family Medicine 03/09/25 Arlyn Schmidt MD [address] [place] [address] Consulting Physician Internal Medicine-Endocrinology, Diabetes & Metabolism 11/28/20 Tacho Echavarria MD [address] [place] [address] Internal Medicine-Medical Oncology 11/12/23 Matt Ulrich MD [address] [place] [address] Surgery-Surgical Oncology 12/04/23 Eze Brock Pastoral Care 12/13/23 Annette Walker, ARACELI Superintendent Cemetery 05/13/24 Batool Celis MD [address] [place] [address] Radiation Oncologist Radiology-Radiation Oncology 06/08/24
--- OUTSIDE RECORDS SUMMARY | 2025-06-01 12:17 | XMS_ITS | Encounter Summary ---
Author Organization [place] [address] Care Team Providers Care Flower Grader Name Role Phone Kit Cedeno MD Primary Care Provider [phone] Arlyn Schmidt MD Unavailable [phone] Cheryl Nair RN Unavailable [phone] Tacho Echavarria MD Unavailable [phone] Matt Ulrich MD Unavailable [phone] Hilary Clemens RN Unavailable Unavaila Eze Caro Unavailable Shila Albrecht RN Unavailable Unavail able Cheyanne To RN Unavailable Unavailabl Rayna Wong RN Unavailable Unavailab Shilpa Olivarez RN Unavailable [phone] Tulio Duong RN Unavailable Unavailable Yaquelin Weaver RN Unavailable Unavailable Pam Wang RN Unavailable Unavailable Jazmín Nair RN Unavailable Unavailable Fidel Rainey RN Unavailable Unavailable Cheryl Nair RN Unavailable [phone] Ophelia Lala RN Unavailable Glo Lee RN Unavailable Unavailab Sanam Evans MEDICAL DIR Unavailable Unavailable Hilary Clemens RN Unavailable Unavaila Ruthy Clayton RN Unavailable Unavailable Rayna Partida RN Unavailable Unavailab Artur Nelson RN Unavailable Unavailable Annette Walker MEDICAL DIR Unavailable [phone] Emmie Crain RN Unavailable Unavailable Brigida Enriquez RN Unavailable Unavailable Fidel Rainey RN Unavailable Unavailable Batool Celis MD Unavailable [phone] Ayush Marrero MD Primary Care Provider [phone] Encounter Details Date Type Department Care Team (Late st Contact Info) Description 10/25/2023 Orders Only [facility] One [facility] [place] [address] Diane Ellis MD 1 [place] [address] Social History Tobacco Use Types [...] EST Procedure visit [facility] [address] [facility] [address] [place] [address] Samm Ledesma APRN [address] [facility] [place] [address] 08/12/2025 10:40 AM EST Appointment [facility] Women's Wellness [place] One [facility] [place] [address] Matt Ulrich MD [address] [place] [address] [address] [place] [address] 09/08/2025 2:15 PM EST Office Visit [address] [place] [address] Sin Tran MD [address] [place] [address] documented as of this encounter Goals Goal Patient Goal Type Associated Problems Recent Progress Patient-Stated? Author Blood Pressure < 140/90 Blood Pressure 148/95(2024 2:34 PM EST) Kit Hsu MD Maintain a healthy diet, exercise regularly and maintain an ideal body weight General No Sanam Julio MA documented as of this encounter Procedures Procedure Name Priority Date/Time Associated Diagnosis Comments NEOGENOMICS HER2 BREAST Routine 10/25/2023 10:44 AM EDT documented in this encounter Results * NEOGENOMICS HER2 BREAST (10/25/2023 10:44 AM EDT) 10/25/2023 10:4 4 AM EDT Narrative [facility] - 11/06/2023 7:12 PM EDT Requesting Provider: KIT Womack Specimen = [id number] us Diane Ellis MD PATHOLOGY ORDERABLES Final Resul t [facility] 1 [place] [address] documented in this encounter Visit Diagnoses Not on filedocumented in this encounter Additional Health Concerns Infection Onset Date Last Indicated Resolved Time COVID-19 09/04/2024 09/04/2024 09/24/2024 10:1 2 PM EDT documented as of this encounter Care Teams Flower Grader Relationship Specialty [place] [address] [place] [address] PCP - General 06/21/10 03/08/25 Ayush Marrero MD [address] [place] [address] PCP - General Family Medicine 03/09/25 Arlyn Schmidt MD [address] [place] [address] Consulting Physician Internal Medicine-Endocrinolog y, Diabetes & Metabolism 11/28/20 Cheryl Nair, RN Oncology Nurse Navigator 10/29/2302/05 Tacho Echavarria MD 1 [place], [place] [id number] Internal Medicine-Medical Oncology 11/12/23 Matt Ulrich MD 1 [place] [address] Surgery-Surgical Oncology 12/04/23 Hilary Clemens, RN Registered [...] Nurse Infusion Therapy 04/03/24 04/03/24 Sanam Murray, MEDICAL DIR Form Raiser 04/10/24 07/30/24 Hilary Clemens, RN Registered Nurse Infusion Therapy 04/21/24 04/21/24 Ruthy Walker RN Registered Nurse Infusion Therapy 04/24/24 04/24/24 Rayna Partida, RN Registered Nurse Infusion Clinic 05/01/24 05/01/24 Artur Roberts RN Registered Nurse Infusion Therapy 05/07/24 05/07/24 Annette Walker, [facility] Form Raiser 05/13/24 Emmie Crain, RN Registered Nurse Infusion Therapy 05/14/24 05/14/24 Brigida Enriquez, RN Registered Nurse Infusion Clinic 05/21/24 05/21/24 Fidel Rainey, RN Registered Nurse Infusion Therapy 05/28/24 05/28/24 Batool Celis MD [address] [place] [address] [place] [address] Radiation Oncologist Radiology-Radiation Oncology 06/08/24 documented as of this encounter
--- OUTSIDE RECORDS SUMMARY | 2025-06-01 12:17 | XMS_ITS | Data Portability ---
Author Organization 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 2024 025 REDD Not available 23:07:15 cardiologis t referral - needs with dr pj duran pt 2024 025 REDD Davies MD, [address], [place], [address], 08:13:12 Procedures None recorded. Surgeries None recorded. Imaging None recorded. Medication Orders None recorded. Patient TargetsNo targets recorded. Patient InstructionsNo instructions recorded. 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 Referring Physician: Julien Alejandre, [facility], Encounter Date: 02/08/2025 Results Created [...] Endoc rine Socie ty went on to [facility] er defin e vitam in D insuf ficie ncy as a level betwe en 21 and 29 ng/mL (2). 1. IOM (Inst itute of Medic ine). 2009. Dieta ry refer ence intak es for calci um and D. Kassi goss [place]: The [facility] Press . 2. Pia samayoa MF, Rachid bush [place], Vale off-F errar i ROBLEDO, et al. Evalu ation , treat ment, and preve ntion of vitam in D defic iency : an Endoc rine Socie ty clini zeus pract ice guide line. JCEM. 2010; 96(7) :1911 -30. Not Available [facility] ([facility]) [address], [place], [address], 02/09/2025 08:09:18 02/13/20 25 01/27/2024 MAMMO , [...] Organization Details Recorded Time Chronic back pain 494761031 Active Macarena [place] null, [place] - [facility] 12:02:10 Malignant neoplasm of breast 165558873 Active 2023 Macarena High [place], [place] - [facility] 12:01:43 Vitamin D deficiency 29220613 Active 2024 Mirthapreeti Zavala null, [place] - [facility] 10:50:34 Acute pulmonary embolism 842911531 Active 2024 Julien Alejandre, PRINCIPAL CLOUD ARCHITECT [address], [place], [address] , [place] - [facility] 5 15:43:30 Chronic depression 874973420 Active 2024 Julien Alejandre, PRINCIPAL CLOUD ARCHITECT [address], [place], [address] , [place] - [facility] 5 15:43:49 Migraine with persistent visual aura 435055118 Active 2024 Julien Alejandre, PRINCIPAL CLOUD ARCHITECT [address], [place], [address] , [place] - [facility] 5 15:44:49 Restless legs syndrome 75127797 Active 2024 Julien Alejandre, PRINCIPAL CLOUD ARCHITECT [address], [place], [address] , [place] - [facility] 5 15:44:51 Urinary incontinence 809760071 Active 2024 Julien Alejandre, PRINCIPAL CLOUD ARCHITECT [address], [place], [address] , [place] - [facility] 5 15:44:52 Irritable bowel syndrome 98144474 Active 2024 Mirtha Z[place]ala null, [place] - [...] Name and Address Organization Details Recorded Time 540395 amoxicill in medicatio n rash Not available high 02/08/2025 723 RxNorm Macarena Anilaharsh eng, [place] - [facility] 09:29:12 120354 cefazolin medicatio n rash Not available high 02/08/2025 2180 RxNorm Macarena High velas[place], [place] - [facility] 09:50:27 274406 hydrocodo ne Not available rash Not available high 02/08/2025 5489 RxNorm Macarena Mosquedaharsh eng, [place] - [facility] 09:53:21 860564 varicella zoster immune globulin (human) medicatio n rash Not available high 02/08/2025 15033 6 [facility]Norm [facility]a High velas[place], [place] - [facility] 09:54:03 767363 methocarb les medicatio n diarrhea Not available high 02/08/2025 6845 RxNorm [place], [place] - [facility] 5 09:54:51 877708 tree nut food Not available Not available high 02/08/2025 Macarena eng, [place] - [facility] 5 09:55:06 502451 lactose food,medi cation Not available Not available high 02/08/2025 6211 RxNorm [place], [place] - [facility] 5 09:55:15 422066 sumatript an medicatio n rash Not available high 02/08/2025 40153 RxNorm [place]a [place] null, [place] - [facility] 5 09:55:36 939474 morphine medicatio n rash Not available [facility] 02/08/2025 7052 RxNorm Macarena eng, [place] - [facility] 5 09:56:02 080903 adhesive tape environme nt,medica tion rash Not available high 02/08/2025 Macarena eng, [place] - [facility] 5 09:56:32 115860 silver medicatio n rash Not available high 02/08/2025 28537 43 RxNorm [place], [place] - [facility] 5 09:56:51 671411 zoster vaccine live Not available rash Not [...] weight Body temperature Heart rate Oxygen saturation Respiratory rate Pain severity - 0-10 verbal numeric rating [Score] - Reported Systolic And Diastolic Provider Name and Address Organization Details Last Updated DateTime 5 160.02 cm 33.7 kg/m2 52628.5 5 g 97.2 [degF] 97 /min 98 % 18 /min 5 97/58 mm[Hg] Macarena High [place] - [facility] 09:24:50 Social History Question Answer Notes LastModified by Organizat ion Details LastModified Time Tobacco Smoking Status Never Smoker [place], [place] - [facility] 02/08/2025 09:38:48 Do You Have An Advance Directive? No Information not available 02/08/2025 Are You Blind [...] Or The Highest Degree You Have Received? [id number] Information not available 02/08/2025 Have There Been Any Changes To Your Family Or Social Situation? Yes Moved, Disabled Information not available 02/08/2025 Have You Recently Or Are You Planning To Travel To An Area With Zika Virus? No Information not available 02/08/2025 Do You Have A Medical Power Of Associate Manager Affiliate Marketing? No Information not available 02/08/2025 What Was [...] anxious, or unable to sleep at night)? [id number] Information not available 02/08/2025 Do you have difficulty concentrating, remembering or making decisions? No Information no t available 02/08/2025 Family History Relationship Description Onset Age of this Age Resolved Age Notes LastModified by Organization Details LastModified Time Son Diabetes mellitus [email or web address] Not available 2024 09:09:52 Medical History Condition Response Anxiety Disorder Y Diabetes Y Obesity Y Degenerative Disc Disease Y Breast Cancer Y Neuropathy Y Headaches Y Hypertension Y Depression Y Blood clot Y Gynecological History Statement/Question Response Menses Monthly N LMP Unknown Obstetrics History GPAL:G 0 P 0 0 0 0 Immunizations Vaccine Type Date Status Note Provider Nam e and Address Organization Details Recorded Time Influenza, recombinant, quadrivalent, PF 9 completed Not Available [facility] 02/08/2025 09:06:23 zoster recombinant 0 completed Not Available [facility] 02/08/2025 09:06:23 COVID-19, mRNA, LNP-S, PF, 30 mcg/0.3 mL dose 1 completed Not Available [facility] 02/08/2025 09:06:23 COVID-19, mRNA, LNP-S, PF, 30 mcg/0.3 mL dose 1 completed Not Available [facility] 02/08/2025 09:06:23 COVID-19, mRNA, LNP-S, PF, 30 mcg/0.3 mL dose 1 completed Not Available [facility] 02/08/2025 09:06:23 Influenza, recombinant, quadrivalent, PF 1 completed Not Available [facility] 02/08/2025 09:06:23 Pneumococcal conjugate PCV20, polysaccharide DNL953 conjugate, adjuvant, PF 2 completed Not Available [facility] 02/08/2025 09:06:23 Influenza, recombinant, quadrivalent, PF 2 completed Not Available [facility] 02/08/2025 09:06:23 Influenza, split virus, quadrivalent, PF 3 completed Not Available [facility] 02/08/2025 09:06:23 Influenza, high-dose, trivalent, PF 4 completed Not Available [facility] 02/08/2025 09:06:23 Past Encounters Encounter ID Performer Location Encounter Start Date Encounter Closed Date Diagnosis/Indication Diagnosis SNOMED-CT Code Diagnosis ICD10 Code Diagnosis IMO Codes Diagnosis Note [id number] Julien Alejandre APRN [address] [address] 02/08/2025 09:00:27 02/08/2025 11:13:11 Vitamin D deficiency 62399003 E55.9 63960 labs Malignant neoplasm of breast 585311839 C50.911 05736150 obtain records Chronic back pain 084699 002 M54.9 G89.29 31544767 Chronic depression 56172 0009 F32.A 480530 Migraine w ith persistent visual aura 546480014 G43.523 7634636 neurology referral Restless l egs syndrome 83199686 G25.81 82166 Urinary incontinence 165 247571 R32 34157480 Essential hypertension 39256515 I10 85118 cardiology referral Hyperglycemia 48553807 R 73.9 57380 endo referral Health Concerns Section Related Observation LastModified by Organization Detai ls LastModified Time None Recorded Concern Status LastModified by Organization Details LastModified Time None Recorded Advance Directives Directive N: Payers Insurance Date Sequence Insurance Name Policy Number Policy Hassan Covered Member ID Hassan Member ID Guarantor Name 03/06/2025 1 [employer] [place] (MEDICAID HMO) Meri Cole [id number] Meri Douglas 03/31/2025 [place] Meri Douglas [id number] Meri Cole Notes Date Note Type Note Provider Name and Address Organization Details Recorded Time 02/08/2025 text/html Emergency Depart ment Follow-Up RecordReported by PatientEmergency Room Follow-Up RecordFor discharge information, patient reportsname of hospital/urgent care patient was seen: ([facility]),patient presented to hospital/urgent care on or around: [...] 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[facility]- [facility] 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
--- OUTSIDE RECORDS SUMMARY | 2025-06-01 12:17 | XMS_ITS | Encounter Summary ---
Author [place] [address] Care Team Providers Care Animal Killer Name Role Phone Arlyn Schmidt MD Unavailable [phone] Tacho Echavarria MD Unavailable [phone] Matt Ulrich MD Unavailable [phone] Eze Brock Unavailable Annette Walker ABSORPTION PLANT OPERATOR HELPER Unavailable [phone] Batool Celis MD Unavailable [phone] Ayush Marrero MD Primary Care Provider [phone] Reason for Visit * Reason Onset Date Comments Schedule Appointment 04/02/2025 Call from Chely Rowan's office to schedule MRI Encounter Details Date Type Department Care Team (Late st Contact Info) Description 04/02/2025 Telephone [place] [address] Tacho Echavarria MD [address] [place] [address] [id number] Schedule Appointment (Call from Dr. Rowan's office [...] [facility] IP Transportation [...] [address] [facility] [address] [place] [address] Samm Ledesma APRN [address] [place] [address] 08/12/2025 10:[address] [facility] Women's Wellness [facility] [place] [address] Matt Ulrich MD [address] [place] [address] [address] [place] [address] 09/08/2025 2:15 PM EST Office Visit [address] [place] [address] Sin Tran MD [address] [place] [address] documented as of this encounter Goals [...] as of this encounter Care Teams Animal Killer Relationship Specialty Start Date End Date Ayush Marrero MD [address] [place] [address] PCP - General Family Medicine 03/09/25 Arlyn Schmidt MD [address] [place] [address] Consulting Physician Internal Medicine-Endocrinology, Diabetes & Metabolism 11/28/20 Tacho Echavarria MD [address] [place] [id number] Internal Medicine-Medical Oncology 11/12/23 Matt Ulrich MD 1 [place] [address] Surgery-Surgical Oncology 12/04/23 Eze Brock Pastoral Care 12/13/23 Annette Walker, ABSORPTION PLANT OPERATOR HELPER Insurance Broker 05/13/24 Batool Celis MD 1 [facility] [place] [id number] Radiation Oncologist Radiology-Radiation Oncology 06/08/24 documented as of this encounter
--- OUTSIDE RECORDS SUMMARY | 2025-06-01 12:17 | XMS_ITS | Encounter Summary ---
Author Organization [place] [address] Care Team Providers Care Hothouse Worker Name Role Phone Kit Cedeno MD Primary Care Provider [phone] Arlyn Schmidt MD Unavailable [phone] Cheryl Nair RN Unavailable [phone] Tacho Echavarria MD Unavailable [phone] Matt Ulrich MD Unavailable [phone] Hilary Clemens RN Unavailable Unavaila Eze Caro Unavailable Shila Albrecht RN Unavailable Unavail able Cheyanne To RN Unavailable Unavailabl Rayna Wong RN Unavailable Unavailab Shilpa Olivarez RN Unavailable [phone] Tulio Duong RN Unavailable Unavailable Yaquelin Weaver RN Unavailable Unavailable Pam Wang RN Unavailable Unavailable Jazmín Nair RN Unavailable Unavailable Fidel Rainey RN Unavailable Unavailable Cheryl Nair RN Unavailable [phone] Ophelia Lala RN Unavailable Glo Lee RN Unavailable Unavailab Sanam Evans SOFTWOOD FALLER Unavailable Unavailable Hilary Clemens RN Unavailable Unavaila Ruthy Clayton RN Unavailable Unavailable Rayna Partida RN Unavailable Unavailab Artur Nelson RN Unavailable Unavailable Annette Walker SOFTWOOD FALLER Unavailable [phone] Emmie Crain RN Unavailable Unavailable Brigida Enriquez RN Unavailable Unavailable Fidel Rainey RN Unavailable Unavailable Batool Celis MD Unavailable [phone] Ayush Marrero MD Primary Care Provider [phone] Encounter Details Date Type Department Care Team (Late st Contact Info) Description 10/25/2023 Orders Only [facility] [place] [address] Diane Ellis MD 1 [place] [address] Social History Tobacco Use Types [...] HECTOR [address] [facility] [address] [place] [address] Samm Ledesma APRN [address] [place] [address] 08/12/2025 10:40 AM EST Appointment [facility] Women's Wellness [place] [address] Matt Ulrich MD [address] [place] [address] [address] [place] [address] 09/08/2025 2:15 PM EST Office Visit [address] [place] [address] Sin Tran MD [address] [place] [address] documented as of this encounter Goals [...] 10/25/2023 10:4 4 AM EDT Narrative [facility] - 11/11/2023 7:42 AM EDT Requesting Provider: KIT Womack Specimen = [id number] us Diane Ellis MD PATHOLOGY ORDERABLES Final Resul t [facility] 1 [place] [address] documented in this encounter Visit Diagnoses Not on filedocumented in this encounter Additional Health Concerns Infection Onset Date Last Indicated Resolved Time COVID-19 09/04/2024 09/04/2024 09/24/2024 10:1 2 PM EDT documented as of this encounter Care Teams Hothouse Worker Relationship Specialty [place] [address] [place] [address] PCP - General 06/21/10 03/08/25 Ayush Marrero MD [address] [place] [address] PCP - General Family Medicine 03/09/25 Arlyn Schmidt MD [address] [place] [address] Consulting Physician Internal Medicine-Endocrinolog y, Diabetes & Metabolism 11/28/20 Cheryl Nair, RN Oncology Nurse Navigator 10/29/2302/05 Tacho Echavarria MD 1 [place] [address] Internal Medicine-Medical Oncology 11/12/23 Matt Ulrich MD 1 [place] [address] Surgery-Surgical Oncology 12/04/23 Hilary Clemens, [...] Nurse Infusion Therapy 04/03/24 04/03/24 Sanam Murray, SOFTWOOD FALLER Day Guard 04/10/24 07/30/24 Hilary Clemens, RN Registered Nurse Infusion Therapy 04/21/24 04/21/24 Ruthy Walker RN Registered Nurse Infusion Therapy 04/24/24 04/24/24 Rayna Partida RN Registered Nurse Infusion Clinic 05/01/24 05/01/24 Artur Roberts RN Registered Nurse Infusion Therapy 05/07/24 05/07/24 Annette Walker, SOFTWOOD FALLER Day Guard 05/13/24 Emmie Crain, RN Registered Nurse Infusion Therapy 05/14/24 05/14/24 Brigida Enriquez, RN Registered Nurse Infusion Clinic 05/21/24 05/21/24 Fidel Rainey, RN Registered Nurse Infusion Therapy 05/28/24 05/28/24 Batool Celis MD [address] [place] [address] [place] [address] Radiation Oncologist Radiology-Radiation Oncology 06/08/24 documented as of this encounter
--- OUTSIDE RECORDS SUMMARY | 2025-06-01 12:17 | XMS_ITS | Encounter Summary ---
Author Organization [place] [address] Care Team Providers Care Red Hat Linux Administrator Name Role Phone Arlyn Schmidt MD Unavailable [phone] Tacho Echavarria MD Unavailable [phone] Matt Ulrich MD Unavailable [phone] Eze Brock Unavailable Annette Walker STREET CAR MECHANIC Unavailable [phone] Batool Celis MD Unavailable [phone] Ayush Marrero MD Primary Care Provider [phone] Reason for Visit * Reason Onset Date Comments Cancelled Appointment 04/23/2025 For with [facility] (6 month f/u) Encounter Details Date Type Department Care Team (Late st Contact Info) Description 04/23/2025 Telephone [place] [address] Josie Almaraz, Clerical Staff Cancelled [...] Date Recorded PHQ-2 Total Score 5 07/07/2024 [facility] [...] a group home (including now)? No 11/07/2023 [facility] IP [...] is currently under [place] with Dr Rowan ([facility]) for Stage IV met breast ca. [...] HECTOR [address] [facility] [address] [place] [address] Samm Ledesma, CRANE OILER [address] [facility] [address] [place] [address] 08/12/2025 10:40 AM EST Appointment [facility] Women's Wellness [facility] [place] [address] Matt Ulrich MD [address] [place] [address] 254 [place] [address] 09/08/2025 2:15 PM EST Office Visit [place] [address] [place] [phone] Sin Tran MD [address] [place] [phone] documented as of this encounter Goals Goal [...] documented as of this encounter Care Teams Red Hat Linux Administrator Relationship Specialty Start Date End Date Ayush Marrero MD [address] [place] [address] PCP - General Family Medicine 03/09/25 Arlyn Schmidt MD [address] [place] [address] Consulting Physician Internal Medicine-Endocrinology, Diabetes & Metabolism 11/28/20 Tacho Echavarria MD [address] [place] [id number] Internal Medicine-Medical Oncology 11/12/23 Matt Ulrich MD 1 [place] [id number] Surgery-Surgical Oncology 12/04/23 Eze Brock Pastoral Care 12/13/23 Annette Walker, STREET CAR MECHANIC Senior Security Analyst 05/13/24 Batool Celis MD 1 [facility] [place] [address] Radiation Oncologist Radiology-Radiation Oncology 06/08/24 documented as of this encounter
--- OUTSIDE RECORDS SUMMARY | 2025-06-01 12:17 | XMS_ITS | Encounter Summary ---
Author Organization [facility] Address One [facility] [place] [facility] [place] [address] Care Team Providers Care Retail Branch Manager Name Role Phone Chetna Cedeno MD Primary Care Provider Arlyn Schmidt MD Unavailable [phone] Tacho Echavarria MD Unavailable [phone] Matt Ulrich MD Unavailable Eze Brock Unavailable Cheryl Nair RN Unavailable [phone] Sanam Murray BRICK MACHINE OPERATOR Unavailable Unavailable Annette Walker BRICK MACHINE OPERATOR Unavailable [phone] Batool Celis MD Unavailable [phone] Ayush Marrero MD Primary Care Provider [phone] Encounter Details Date Type Department Care Team (Late st Contact Info) Description 07/06/2024 Orders Only [facility] [place] [address] Shilpa Tan MD [address] [place] [phone] Social History Tobacco Use Types Packs/Day Years [...] Score 5 07/07/2024 [facility] - Occupational Stress Questionnaire Answer Date [...] a senior living (including now)? No 11/07/2023 [facility] IP Transportation Answer D ate [...] NEUROLOGY HECTOR [address] [facility] [address] [place] [address] Samm Ledesma APRN [address] [facility] [address] [place] [address] 08/12/2025 10:40 AM EST Appointment [facility] Women's Wellness [facility] [address] Matt Ulrich MD [address] [place] [address] 254 [place] [address] 09/08/2025 2:15 PM EST Office Visit [address] [place] [address] Sin Tran MD [address] [place] [address] documented as of this encounter Goals Goal Patient Goal Type Associated Problems Recent Progress Patient-Stated? Author Blood Pressure < 140/90 Blood Pressure 148/95(05/19 2:34 PM EST) No Chetna Cedeno MD Breast Health Breast Health On track(2024 11:27 AM EDT) No German, Jasmin Shaunna Aparicio, RN Note: Patient acknowledges understanding of new [...] EST) 07/06/2024 12:5 1 PM EST Narrative [facility] - 09/24/2024 2:31 PM EDT Requesting Provider: MATT Womack Specimen = [id number] us Shilpa Tan MD PATHOLOGY ORDERABLES Final R esult [facility] 1 [place] [address] documented in this encounter Visit Diagnoses Not on filedocumented in this encounter Additional Health Concerns Infection Onset Date Last Indicated Resolved Time COVID-19 09/04/2024 09/04/2024 09/24/2024 10:1 2 PM EDT Assessment Noted Time PHQ-9 Depression Total Score: 12 024 12:00 PM EDT documented as of this encounter Care Teams Retail Branch Manager Relationship Specialty [place] [address] [place] [address] PCP - General 06/21/10 03/08/25 Ayush Marrero MD [address] [place] [address] PCP - General Family Medicine 03/09/25 Arlyn Schmidt MD [address] [place] [address] Consulting Physician Internal Medicine-Endocrinology , Diabetes & Metabolism 11/28/20 Tacho Echavarria MD 1 [place], [place] [phone] Internal Medicine-Medical Oncology 11/12/23 Matt Ulrich MD 1 [place], [place] [phone] Surgery-Surgical Oncology 12/04/23 Eze Brock Pastoral Care 12/13/23 Cheryl Nair, RN Oncology Nurse Navigator 03/25/2412/13 Sanam Murray MSW Tubular Stock Glass Bulb Machine Former 04/10/24 07/30/24 Annette Walker MSW Tubular Stock Glass Bulb Machine Former 05/13/24 Batool Celis MD 1 [facility] [place] [address] Radiation Oncologist Radiology-Radiation Oncology 06/08/24 documented as of this encounter
--- OUTSIDE RECORDS SUMMARY | 2025-06-01 12:17 | XMS_ITS | Clinical Summary ---
Author Organization [facility] Address [address] [place] [address] Phone Care Team Providers Care Early Years Teacher Name Role Phone Chetna Cedeno MD Primary Care Provider [phone] Allergies Active Allergy Reactions Criticality Noted Date [...] patient's age to complete this topic Insurance [facility] MEDICAID Care Teams Early Years Teacher Relationship Specialty Start Date End Date Chetna Cedeno MD [facility] [address] [place] [address] PCP - General Family Medicine 01/02/25
--- OUTSIDE RECORDS SUMMARY | 2025-06-01 12:17 | XMS_ITS | Encounter Summary ---
Author Organization [place] [address] Care Team Providers Care Steam Flattener Name Role Phone Kit Cedeno MD Primary Care Provider [phone] Arlyn Schmidt MD Unavailable [phone] Cheryl Nair RN Unavailable [phone] Tacho Echavarria MD Unavailable [phone] Matt Ulrich MD Unavailable [phone] Hilary Clemens RN Unavailable Unavaila Eze Caro Unavailable Shila Albrecht RN Unavailable Unavail able Cheyanne To RN Unavailable Unavailabl Rayna Wong RN Unavailable Unavailab Shilpa Olivarez RN Unavailable [phone] Tulio Duong RN Unavailable Unavailable Yaquelin Weaver RN Unavailable Unavailable Pam Wang RN Unavailable Unavailable Jazmín Nair RN Unavailable Unavailable Fidel Rainey RN Unavailable Unavailable Cheryl Nair RN Unavailable [phone] Ophelia Lala RN Unavailable Glo Lee RN Unavailable Unavailab Sanam Evans REHAB SERVICES AIDE Unavailable Unavailable Hilary Clemens RN Unavailable Unavaila Ruthy Clayton RN Unavailable Unavailable Rayna Partida RN Unavailable Unavailab Artur Nelson RN Unavailable Unavailable Annette Walker REHAB SERVICES AIDE Unavailable [phone] Emmie Crain RN Unavailable Unavailable Brigida Enriquez RN Unavailable Unavailable Fidel Rainey RN Unavailable Unavailable Batool Celis MD Unavailable [phone] Ayush Marrero MD Primary Care Provider [phone] Encounter Details Date Type Department Care Team (Late st Contact Info) Description 10/25/2023 Orders Only [facility] [place] [address] Diane Ellis MD 1 [place] [address] Social History Tobacco Use Types [...] visit [facility] [address] [facility] [address] [place] [address] Samm Ledesma APRN [address] [facility] [address] [place] [address] 08/12/2025 10:40 AM EST Appointment [facility] Women's Wellness [place] [facility] [place] [address] Matt Ulrich MD [address] [place] [address] 254 [place] [address] 09/08/2025 2:15 PM EST Office Visit [address] [place] [address] Sin Tran MD [address] [place] [address] documented as of this encounter Goals [...] EDT) 10/25/2023 10:4 4 AM EDT Narrative [facility] - 11/11/2023 2:42 PM EDT Requesting Provider: KIT Womack Specimen = [id number] us Diane Ellis MD PATHOLOGY ORDERABLES Final Resul t [facility] 1 [place] [address] documented in this encounter Visit Diagnoses Not on filedocumented in this encounter Additional Health Concerns Infection Onset Date Last Indicated Resolved Time COVID-19 09/04/2024 09/04/2024 09/24/2024 10:1 2 PM EDT documented as of this encounter Care Teams Steam Flattener Relationship Specialty [place] [address] [place] [address] PCP - General 06/21/10 03/08/25 Ayush Marrero MD [address] [place] [address] PCP - General Family Medicine 03/09/25 Arlyn Schmidt MD [address] [place] [address] Consulting Physician Internal Medicine-Endocrinolog y, Diabetes & Metabolism 11/28/20 Cheryl Nair, RN Oncology Nurse Navigator 10/29/2302/05 Tacho Echavarria MD 1 [place], [place] [address] Internal Medicine-Medical Oncology 11/12/23 Matt Ulrich MD 1 [place] [address] Surgery-Surgical Oncology 12/04/23 Hilary Clemens, RN Registered [...] Nurse Infusion Therapy 04/03/24 04/03/24 Sanam Murray, REHAB SERVICES AIDE Drilling Engineering Manager 04/10/24 07/30/24 Hilary Clemens, RN Registered Nurse Infusion Therapy 04/21/24 04/21/24 Ruthy Walker RN Registered Nurse Infusion Therapy 04/24/24 04/24/24 Rayna Partida, RN Registered Nurse Infusion Clinic 05/01/24 05/01/24 Artur Roberts RN Registered Nurse Infusion Therapy 05/07/24 05/07/24 Annette Walker, [facility] Drilling Engineering Manager 05/13/24 Emmie Crain, RN Registered Nurse Infusion Therapy 05/14/24 05/14/24 Brigida Enriquez, RN Registered Nurse Infusion Clinic 05/21/24 05/21/24 Fidel Rainey, RN Registered Nurse Infusion Therapy 05/28/24 05/28/24 Batool Celis MD 1 [facility] [place] [address] Radiation Oncologist Radiology-Radiation Oncology 06/08/24 documented as of this encounter
--- OUTSIDE RECORDS SUMMARY | 2025-06-01 12:17 | XMS_ITS | Clinical Summary ---
Author Organization [facility] Address [address] [place] [address] Phone Care Team Providers Care Fiber Technician Name Role Phone Outside, Provider Unavailable Conditions or Problems No information available. Medications No information available. Medications Administered No information available. Allergies, Adverse Reactions, Alerts No information available. Results No information available. Plan of Care No information available. Procedures No information available. Vital Signs No information available. Immunizations No information available. Advance Directives No information available.
--- OUTSIDE RECORDS SUMMARY | 2025-06-01 12:17 | XMS_ITS ---
Author Organization [facility] Address [facility] [address] [place], [place] [address] Phone Care Team Providers Care Milk Pasteurizer Name Role Phone Arlyn Schmidt MD Unavailable [phone] Tacho Echavarria MD Unavailable [phone] Matt Ulrich MD Unavailable [phone] Eze Brock Unavailable Annette Walker Unavailable [phone] Batool Celis MD Unavailable [phone] Ayush Marrero MD Primary Care Provider [phone] Active Problems * This document contains information received from the source organization and may not represent a complete record from that organization. Patient Care Coordination No te Formatting of this note migh t be different from the original. 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 Care Team Medical Oncologist Dr. Tacho Echavarria Surgeon Dr. Matt Ulrich Radiation Oncologist Dr. Batool Celis Primary Care Physician Chetna Cedeno MD Cancer Diagnosis Information Diagnosis date 10/29/23 Diagnosis and Staging information Invasive Ductal Carcinoma, right breast Clinical Stage IIIB (cT3, cN3a(f), M0, G3, ER+, IL+, Her2-) Pathologic Stage y(pT3, pN3a, G3 ER+, IL+, Her2-) Tumor markers Breast: Estrogen Receptor positive (92%) Progesterone Receptor positive (55%) Her-2 negative Background Information/Additional Screening Recommendations Genetics testing Negative ([facility] 67-gene panel) Tobacco use Nonsmoker. [...] up to GI tolerance for2 yr planned (Encinal-E regimen) Radiation therapy External beam radiotherapy to a total dose of 60 Gy; 50 Gy to right chest wall and regional lymph nodes including internal mammary + 10 Gy boost to the undissected nodes. Delivered in a total of 30 fractions Endocrine Therapy Arimidex started 10/08/24 + Verzenio. Changed to Aromasin give [facility] Oncology Timeline Oncology History Invasive ductal carcinoma of breast, female, right (HCC) 10/29/2023 Initial Diagnosis Invasive ductal carcinoma of right breast, grade 3 A. Breast, right, 6:00, Invasive ductal carcinoma, grade 3 ER 80%, IL 11%, Her2 negative B. Breast, right, 5:00 Invasive ductal carcinoma grade 3 ER 92%, IL 55%, Her2 negative 11/11/2023 - Consult Initial [...] to GI tolerance for 2 yr planned (Encinal-E regimen) 10/2024 - changed to Aromasin d/t [...] General Health Continue follow-up with PCP and PSYCHOLOGY ASSOCIATE as directed Recommendations Self-care plan: What you [...] with your body,see your regular doctor, physician human resources assistant manager, or nurse practitioner. If what you [...] Problem Noted Date Diagnosed Date Resolved Date [place] syndrome 12/30/2020 10/16/2021 Assessment & Plan (12/30/2020 [...]
--- OUTSIDE RECORDS SUMMARY | 2025-06-01 12:17 | XMS_ITS | Encounter Summary ---
Author Organization [place] [address] Care Team Providers Care Photographic Process Screen Maker Name Role Phone Arlyn Schmidt MD Unavailable [phone] Tacho Echavarria MD Unavailable [phone] Matt Ulrich MD Unavailable [phone] Eze Brock Unavailable Annette Walker MEETING FACILITATOR Unavailable [phone] Batool Celis MD Unavailable [phone] Ayush Marrero MD Primary Care Provider [phone] Reason for Visit * Reason Onset Date Comments Botox Injection 04/27/2025 Due 06/02/25 Encounter Details Date Type Department Care Team (Late st Contact Info) Description 04/27/2025 Patient Outreach [facility] Neurology [facility] [address] [place] [address] Samm Ledesma, TURKEY EGG GATHERER [address] [facility] [address] [place] [address] Botox Injection (Due 06/02/25) Social History [...] 5 07/07/2024 [facility] - Occupational Stress Questionnaire Answer [...] in a penitentiary (including now)? No 11/07[facility] Answer D ate Recorded [...] Staff - 04/27/2025 4:26 PM EDT APPROVED: [id number] AUTH #: [id number] DATES OF APPROVAL: 03/10/2025-03/10/2026 UNITS APPROVED: 800 units/ 4 visits BUY & BILL Please use referral #[id number] for scheduling. documented in this encounter Plan of Treatment Upcoming Encounters Date Type Department Care Team (Late st Contact Info) Description 06/08/2025 12:45 PM EST Procedure visit [facility] [address] [facility] [address] [place] [address] Samm Ledesma, TURKEY EGG GATHERER [address] [facility] [address] [place] [address] 08/12/2025 10:40 AM EST Appointment [facility] Women's Wellness [facility] [place] [address] Matt Ulrich MD [address] [place] [address] [address] [place] [address] 09/08/2025 2:15 PM EST Office Visit [address] [place] [address] Sin Tran MD [address] [place] [address] documented as of this encounter [...] documented as of this encounter Care Teams Photographic Process Screen Maker Relationship Specialty Start Date End Date Ayush Marrero MD [address] [place] [address] PCP - General Family Medicine 03/09/25 Arlyn Schmidt MD [address] [place] [address] Consulting Physician Internal Medicine-Endocrinology, Diabetes & Metabolism 11/28/20 Tacho Echavarria MD 1 [place] [address] Internal Medicine-Medical Oncology 11/12/23 Matt Ulrich MD 1 [place] [address] Surgery-Surgical Oncology 12/04/23 Eze Brock Pastoral Care 12/13/23 Annette Walker, MEETING FACILITATOR Hand Tool Lapper 05/13/24 Batool Celis MD 1 [facility] [place] [address] Radiation Oncologist Radiology-Radiation Oncology 06/08/24 documented as of this encounter
--- OUTSIDE RECORDS SUMMARY | 2025-06-01 12:17 | XMS_ITS | Encounter Summary ---
Author Organization [place] [address] Care Team Providers Care Emergency Specialist Name Role Phone Arlyn Schmidt MD Unavailable [phone] Tacho Echavarria MD Unavailable [phone] Matt Ulrich MD Unavailable [phone] Eze Brock Unavailable Annette Walker POLYSOMNOGRAPHY TECHNOLOGIST Unavailable [phone] Batool Celis MD Unavailable [phone] Ayush Marrero MD Primary Care Provider [phone] Reason for Visit * Reason Onset Date Comments Information Only 04/09/2025 MRI order Encounter Details Date Type Department Care Team (Late st Contact Info) Description 04/09/2025 Telephone Cancer Care Medical Oncology [place], [place] [id number] Adryan Rowan MD [address] [facility] [address] [place] [address] Information Only (MRI order ) [...] a long term (including now)? No 11/07/2023 [facility] IP Transportation [...] PM EDT Reason for call: Jason with [facility] called stating that she has faxed over pts MRI order several times. Call placed to MRI and gave Jason their fax number for order to be faxed to them where they will upload it Gave Jason fax number provided as [phone] No further needs. documented in this encounter Plan of Treatment Upcoming Encounters Date Type Department Care Team (Late st Contact Info) Description 06/08/2025 12:45 PM EST Procedure visit [facility] [address] [facility] [address] [place] [address] Samm Ledesma, WILDLIFE BIOLOGY TECHNICIAN [address] [facility] [facility] [address] [place] [address] 08/12/2025 10:40 AM EST Appointment [facility] Women's Wellness [facility] [place] [address] Matt Ulrich MD [address] [place] [address] [address] [place] [address] 09/08/2025 2:15 PM EST Office Visit [address] [place] [address] Sin Tran MD [address] [place], [place] [address] documented as of this encounter Goals Goal [...] as of this encounter Care Teams Emergency Specialist Relationship Specialty Start Date End Date Ayush Marrero MD [address] [place] [address] PCP - General Family Medicine 03/09/25 Arlyn Schmidt MD [address] [place] [address] Consulting Physician Internal Medicine-Endocrinology, Diabetes & Metabolism 11/28/20 Tacho Echavarria MD [address] [place] [id number] Internal Medicine-Medical Oncology 11/12/23 Matt Ulrich MD [address] [place] [id number] Surgery-Surgical Oncology 12/04/23 Eze Brock Pastoral Care 12/13/23 Annette Walekr, POLYSOMNOGRAPHY TECHNOLOGIST Business Applications Analyst 05/13/24 Batool Celis MD 1 [facility] [place] [address] Radiation Oncologist Radiology-Radiation Oncology 06/08/24 documented as of this encounter
--- OUTSIDE RECORDS SUMMARY | 2025-06-01 12:17 | XMS_ITS | Encounter Summary ---
Author Organization [place] Address One [facility] Sandeep [facility] [place] [address] Care Team Providers Care Manager Printing Name Role Phone Chetna Cedeno MD Primary Care Provider Arlyn Schmidt MD Unavailable [phone] Tacho Echavarria MD Unavailable [phone] Matt Ulrich MD Unavailable Eze Brock Unavailable Cheryl Nair RN Unavailable [phone] Sanam Murray PULP ROLLER Unavailable Unavailable Annette Walker PULP ROLLER Unavailable [phone] Batool Celis MD Unavailable [phone] Ayush Marrero MD Primary Care Provider [phone] Encounter Details Date Type Department Care Team (Late st Contact Info) Description 07/06/2024 Orders Only [facility] [place] [address] Shilpa Tan MD [address] [place] [phone] Social History Tobacco Use Types Packs/Day Years [...] Score 5 07/07/2024 [facility] - Occupational Stress Questionnaire Answer [...] a group home (including now)? No 11/07/[address] [facility] IP Transportation [...] NEUROLOGY HECTOR [address] [facility] [address] [place] [address] Samm Ledesma APRN [address] [facility] [address] [place] [address] 08/12/2025 10:40 AM EST Appointment [facility] Women's Wellness [facility] [place] [address] Matt Ulrich MD [address] [place] [address] [address] [place] [address] 09/08/2025 2:15 PM EST Office Visit [address] [place] [address] Sin Tran MD [address] [place] [address] documented as of this encounter Goals [...] EST) 07/06/2024 12:5 1 PM EST Narrative [facility] - 09/24/2024 2:57 PM EDT Requesting Provider: MATT Womack Specimen = [id number] us Shilpa Tan MD PATHOLOGY ORDERABLES Final R esult [facility] 1 [place] [address] documented in this encounter Visit Diagnoses Not on filedocumented in this encounter Additional Health Concerns Infection Onset Date Last Indicated Resolved Time COVID-19 09/04/2024 09/04/2024 09/24/2024 10:1 2 PM EDT Assessment Noted Time PHQ-9 Depression Total Score: 12 024 12:00 PM EDT documented as of this encounter Care Teams Manager Printing Relationship Specialty [place] [address] [address] [facility] [place] [address] PCP - General 06/21/10 03/08/25 Ayush Marrero MD [address] [place] [address] PCP - General Family Medicine 03/09/25 Arlyn Schmidt MD [address] [place] [address] Consulting Physician Internal Medicine-Endocrinology , Diabetes & Metabolism 11/28/20 Tacho Echavarria MD 1 [place], [place] [id number] Internal Medicine-Medical Oncology 11/12/23 Matt Ulrich MD 1 [place], [place] [address] Surgery-Surgical Oncology 12/04/23 Eze Brock Pastoral Care 12/13/23 Cheryl Nair, RN Oncology Nurse Navigator 03/25/2412/13 Sanam Murray MSW Bulk Station Agent 04/10/24 07/30/24 Annette Walker MSW Bulk Station Agent 05/13/24 Batool Celis MD 1 [facility] [place] [address] Radiation Oncologist Radiology-Radiation Oncology 06/08/24 documented as of this encounter
--- OUTSIDE RECORDS SUMMARY | 2025-06-01 12:17 | XMS_ITS | Encounter Summary ---
Author [place] [address] Care Team Providers Care Lcac Radar Operator/Navigator Name Role Phone Arlyn Schmidt MD Unavailable [phone] Tacho Echavarria MD Unavailable [phone] Matt Ulrich MD Unavailable [phone] Eze Brock Unavailable Annette Walker SANITATION WORKER HOSING MACHINERY Unavailable [phone] Batool Celis MD Unavailable [phone] Ayush Marrero MD Primary Care Provider [phone] Reason for Visit * Reason Comments Oncology Nurse Navigation Encounter Details Date Type Department Care Team (Late st Contact Info) Description 03/23/2025 Patient Outreach [place] [address] Shilpa Cline, RN Oncology Nurse [...] th e electric, gas, oil, or water [employer] threatened to shut off services in your [...] Total Score 5 07/07/2024 [facility] [place] of Occupat ional Health - Occupational Stress [...] care home (including now)? No [facility]/07[facility]2023 [facility] Transportation Answer D ate [...] has been seeing Dr. Adryan Rowan at [facility] (medical oncology) Emotional Anxiety;Sadness;Stress;Gratitude;Nervousness Intervention: Patient is anxious to learn the plan. She knows she needs more treatment and is saddened and disappoointed. NN offered emotional support and active listening. NN will notify Annette in nursing home social worker and Eze in patoral care for additional support. Follow-up Plan 03/24 Dr. Echavarria Onc NN will continue to follow patient. documented in this encounter Plan of Treatment Upcoming Encounters Date Type Department Care Team (Late st Contact Info) Description 06/08/2025 12:45 PM EST Procedure visit [facility] [address] [place] [address] Samm Ledesma, RADIOLOGY THERAPIST [address] [facility] [address] [place] [address] 08/12/2025 10:40 AM EST Appointment [facility] Women's Wellness [facility] [place] [address] Matt Ulrich MD [address] [place] [address] [address] [place] [address] 09/08/2025 2:15 PM EST Office Visit [facility] [address] [facility] [address] [place] [address] Sin Tran MD [facility] [place] [address] documented as of this encounter Goals Goal Patient Goal Type Associated Problems Recent Progress Patient-Stated? Author Blood Pressure < 140/90 Blood Pressure 148/95(05/19 2:34 PM EST) No Chetna Cedeno MD Breast [facility] Breast Health On track(2024 11:27 AM EDT) No Jasmin Porter, RAUL Note: Patient acknowledges understanding of new diagnosis, plan of care, available resources and how to contact Nurse Navigator with any future questions or concerns. Breast [facility] Breast Health Not on track(2024 11:27 AM [...] documented as of this encounter Care Teams Lcac Radar Operator/Navigator Relationship Specialty Start Date End Date Ayush Marrero MD [address] [place] [address] PCP - General Family Medicine 03/09/25 Arlyn Schmidt MD [address] [place] [address] Consulting Physician Internal Medicine-Endocrinology, Diabetes & Metabolism 11/28/20 Tacho Echavarria MD 1 [place] [address] Internal Medicine-Medical Oncology 11/12/23 Matt Ulrich MD 1 [place] [address] Surgery-Surgical Oncology 12/04/23 Eze Brock Pastoral Care 12/13/23 Annette Walker, SANITATION WORKER HOSING MACHINERY Dental Therapist 05/13/24 Batool Celis MD 1 [facility] [place] [address] Radiation Oncologist Radiology-Radiation Oncology 06/08/24 documented as of this encounter
--- OUTSIDE RECORDS SUMMARY | 2025-06-01 12:18 | XMS_ITS | Encounter Summary ---
Author Organization [place] [address] Care Team Providers Care Regional Production Manager Name Role Phone Arlyn Schmidt MD Unavailable [phone] Tacho Echavarria MD Unavailable [phone] Matt Ulrich MD Unavailable [phone] Eze Brock Unavailable Annette Walker CASHIER RECEPTIONIST Unavailable [phone] Batool Celis MD Unavailable [phone] Ayush Marrero MD Primary Care Provider [phone] Reason for Visit * Reason Comments Pharmacy Migraine Medication Management Qulipta Encounter Details Date Type Department Care Team (Latest Contact Info) Description 04/23/2025 Specialty Pharmacy [facility] [address] [place] [address] Annamarie Mark CPhT Pharmacy Migraine [...] th e electric, gas, oil, or water [employer] threatened to shut off services in your [...] Total Score 5 07/07/2024 [facility] [place] of Occupat ional [facility] - Occupational Stress Questionnaire Answer Date [...] a chcf (including now)? No 11/07/2023 [facility] IP Transportation Answer D [...] Qulipta and Nurtec. Copay amount: $0.00. Sent [employer] message. Patient informed of copay. * Annamarie Mark CPhT - 04/23/2025 2:13 PM EDT Specialty Pharmacy Refill Coordination Note Contacted [facility] today regarding refills of Qulipta. Copay amount: $0 No answer, unable to leave voicemail. mailbox not set up * Aaliyah Decker CPhT - 04/23/2025 2:13 PM EDT Specialty Pharmacy Refill Coordination Note Contacted [facility] today regarding refills of Qulipta. Copay amount: $0 Sent [employer] message. Patient informed of copay. * Annamarie Mark CPhT - 04/23/2025 2:13 PM EDT [facility] Qulipta & Nurtec were transferred to [facility] in [place], [place] 05/25/25 disenrolled patient from Spec documented in this encounter Plan of Treatment Upcoming Encounters Date Type Department Care Team (Late st Contact Info) Description 06/08/2025 12:45 PM EST Procedure visit [facility] [address] [facility] [address] [place] [address] Samm Ledesma APRN [address] [facility] 100 [place] [address] 08/12/2025 10:40 AM EST Appointment [facility] Women's Wellness [place] [address] Matt Ulrich MD [address] [place] [address] [address] [place] [address] 09/08/2025 2:15 PM EST Office Visit [facility] [address] [place] [address] [address] [place] [address] Sin Tran MD [address] [place] [address] documented as of this encounter Goals [...] as of this encounter Care Teams Regional Production Manager Relationship Specialty Start Date End Date Ayush Marrero MD [address] [place] [address] PCP - General Family Medicine 03/09/25 Arlyn Schmidt MD [address] [place] [address] Consulting Physician Internal Medicine-Endocrinology, Diabetes & Metabolism 11/28/20 Tacho Echavarria MD 1 [place] [address] Internal Medicine-Medical Oncology 11/12/23 Matt Ulrich MD 1 [place] [address] Surgery-Surgical Oncology 12/04/23 Eze Brock Pastoral Care 12/13/23 Annette Walker, CASHIER RECEPTIONIST Sld Inclusion Teacher 05/13/24 Batool Celis MD 1 [facility] [place] [address] Radiation Oncologist Radiology-Radiation Oncology 06/08/24 documented as of this encounter
--- OUTSIDE RECORDS SUMMARY | 2025-06-01 12:18 | XMS_ITS | Encounter Summary ---
Author [place] [address] Care Team Providers Care Fisheries Biologist Name Role Phone Chetna Cedeno MD Primary Care Provider [phone] Arlyn Schmidt MD Unavailable [phone] Tacho Echavarria MD Unavailable [phone] Matt Ulrich MD Unavailable [phone] Eze Brock Unavailable Shilpa Cline RN Unavailable [phone] Cheryl Nair RN Unavailable [phone] Ophelia Lala RN Unavailable Glo Lee RN Unavailable Unavailab Sanam Evans AIRPLANE WOODWORKER Unavailable Unavailable Hilary Clemens RN Unavailable Unavaila Ruthy [place] RN Unavailable Unavailable Rayna Partida RN Unavailable Unavailab Artur Nelson RN Unavailable Unavailable Annette Walker AIRPLANE WOODWORKER Unavailable [phone] Emmie Crain RN Unavailable Unavailable Brigida Enriquez RN Unavailable Unavailable Fidel Rainey RN Unavailable Unavailable Batool Celis MD Unavailable [phone] Ayush Marrero MD Primary Care Provider [phone] Encounter Details Date Type Department Care Team (Late st Contact Info) Description 03/18/2024 Lab Requisition [facility] [place] [address] Provider, Unknown Malignant neoplasm of unspecified site [...] Date Recorded PHQ-2 Total Score 0 11/07/2023 [facility] of Occupat ional Health - Occupational [...] in a custodial (including now)? No 11/07/2023 Education Answer Date [...] [address] [place] [address] Samm Ledesma, ORTHOPAEDIC DOCTOR [address] [facility] [facility] [place] [address] 08/12/2025 10:40 AM EST Appointment [facility] Women's Wellness [facility] [place] [address] Matt Ulrich MD [address] [place] [address] [address] [place] [address] 09/08/2025 2:15 PM EST Office Visit [address] [place] [address] Sin Tran MD [address] [place] [address] documented as of this encounter Goals [...] EDT) CASE REPORT Surgical Pathology Report Case: [id number] Authorizing Provider: Provider, Unknown Collected: 03/18/2024 1327 Ordering Location: [facility] Received: 03/18/2024 1327 Pathologist: Diane Ellis MD Specimen: Breast, Right, Request for case [id number] slides to [facility]. 05/04/2024 1:26 PM EDT [facility] FINAL DIAGNOSIS Results will be scanned in this case as an addendum. 05/04/2024 1:26 PM EDT [facility] at 1329 EDT EMBEDDED IMAGES 05/04/2024 1:26 PM EDT [facility] ADDENDUM Refer to Scanned [facility] Surgical Pathology Report. 05/04/2024 1:26 PM EDT [facility] Addendum electronically signed by Diane Ellis MD on 05/04/2024 at 1326 EDT Tissue RIGHT BREAST STRUCTURE / Unknown 03/18/2024 1:27 PM EDT 03/18/2024 1:27 PM EDT us Unknown Provider PATHOLOGY ORDERABLES Edited Res ult - Final [facility] 1 [place] [address] documented in this encounter Visit Diagnoses Diagnosis Malignant neoplasm of unspecified site of right female breast (HCC) documented in this encounter Additional Health Concerns Infection Onset Date Last Indicated Resolved Time COVID-19 09/04/2024 09/04/2024 09/24/2024 10:1 2 PM EDT Assessment Noted Time PHQ-9 Depression Total Score: 12 024 12:00 PM EDT documented as of this encounter Care Teams Fisheries Biologist Relationship Specialty [place] [address] [place] [address] PCP - General 06/21/10 03/08/25 Ayush Marrero MD [address] [place] [address] PCP - General Family Medicine 03/09/25 Arlyn Schmidt MD [address] [place] [address] Consulting Physician Internal Medicine-Endocrinolog y, Diabetes & Metabolism 11/28/20 Tacho Echavarria MD 1 [place] [address] Internal Medicine-Medical Oncology 11/12/23 Matt Ulrich MD 1 [place], [place] [address] Surgery-Surgical Oncology 12/04/23 Eze Brock Pastoral Care 12/13/23 Shilpa Cline, RN Oncology Nurse Navigator 02/04/2403/09 Cheryl Nair, RN Oncology Nurse Navigator 03/25/2412/13 Ophelia Lala, RAUL Registered Nurse Infusion Therapy 03/27/24 03/27/24 Glo Lee, RN Registered Nurse Infusion Therapy 04/03/24 04/03/24 Sanam Murray MSW Human Resources Talent Manager 04/10/24 07/30/24 Hilary Clemens, RN Registered Nurse Infusion Therapy 04/21/24 04/21/24 Ruthy Walker RN Registered Nurse Infusion Therapy 04/24/24 04/24/24 Rayna Partida, RN Registered Nurse Infusion Clinic 05/01/24 05/01/24 Artur Roberts RN Registered Nurse Infusion Therapy 05/07/24 05/07/24 Annette Walker, [facility] Human Resources Talent Manager 05/13/24 Emmie Crain, RAUL Registered Nurse Infusion Therapy 05/14/24 05/14/24 Brigida Enriquez, RAUL Registered Nurse Infusion Clinic 05/21/24 05/21/24 Fidel Rainey, RN Registered Nurse Infusion Therapy 05/28/24 05/28/24 Batool Celis MD 1 [facility] [place] [address] Radiation Oncologist Radiology-Radiation Oncology 06/08/24 documented as of this encounter
--- OUTSIDE RECORDS SUMMARY | 2025-06-01 12:18 | XMS_ITS | Encounter Summary ---
Author Organization [place] [address] Care Team Providers Care Shipping Lead Name Role Phone Arlyn Schmidt MD Unavailable [phone] Tahco Echavarria MD Unavailable [phone] Matt Ulrich MD Unavailable [phone] Eze Brock Unavailable Annette Walker GENERAL PRACTITIONER Unavailable [phone] Batool Celis MD Unavailable [phone] Ayush Marrero MD Primary Care Provider [phone] Reason for Referral * Consultation (Routine) - Authorization Not Needed Specialty Diagnoses / Procedures Referred By Contac t Referred To Contact Diagnoses Chronic migraine without aura, intractable, with status migrainosus Paresthesia Pituitary lesion Procedures RI OFFICE/OUTPATIENT NEW MODERATE MDM 45 MINUTES Samm Ledesma, H[employer] [address] [facility] 100 [place] [address] Phone: tel: fax: [place] [phone] [address] Phone: tel: fax: Referral ID Status Reason Start Date Expiration Date Visits Requested Visits Authorized [id number] Authorization Not Needed Continuity of Care 05/25/20 25 05/25/2026 99 99 Scheduling Instructions Needs neur closer to new home Comments Transfer of Care Reason for Visit * Reason Onset Date Comments Referral 05/25/2025 Transfer of care Encounter Details Date Type Department Care Team (Late st Contact Info) Description 05/25/2025 Telephone SEP Neurology [facility] [address] [place] [address] Samm Ledesma APRN [address] [facility] 100 [place] [address] Referral (Transfer of care) Social History Tobacco Use Types Packs/Day Years [...] doctor or pharmacy? Never 11/07/2023 [facility] Utilities Answer Date Recorded In the [...] in a residential (including now)? No 11/07/2023 [facility] [...] Macarena Henson CCMA documented in this encounter Miscellaneous Notes * Telephone Encounter - Prema Whittington MA - 05/26/2025 8:02 AM EST Referral packet sent via fax. FAX CONFIRMATION RECEIVED. * Telephone Encounter - Samm Ledesma APRN - 05/25/2025 4:05 PM EST noted * Telephone Encounter - Prema Whittington MA - 05/25/2025 1:17 PM EST Received incoming call from [facility]. The patient requests transfer of care to neurology dept at [facility] as she now lives 1.5 hours away from our location. They state the the patient will be scheduled with Dr. Pearson at [facility] Neurology. The fax number for [facility] Neurology is [phone]. They also provided us with the patient's brand new phone number. Updated demographics. Called the patient via the new number to confirm it. She verified her former primary number is no longer in use. States she wants to keep the Botox injection that is scheduled next month. Pended referral; routed to . documented in this encounter Plan of Treatment Upcoming Encounters Date Type Department Care Team (Late st Contact Info) Description 06/08/2025 12:45 PM EST Procedure visit [facility] [address] [facility] [address] [place] [address] Samm Ledesma APRN [address] [facility] [address] [place] [address] 08/12/2025 10:[address] [facility] Women's Wellness [facility] [place] [address] Matt Ulrich MD [address] [place] [address] [address] [place] [address] 09/08/2025 2:15 PM EST Office Visit [facility] [address] [place] [address] Sin Tran MD [address] [place] [address] Scheduled Referrals Name Type Priority Associated Diagnoses Orde r Schedule AMB REFERRAL TO NEUROLOGY Outpatient Referral Routine Chronic migraine without aura, intractable, with status migrainosus Paresthesia Pituitary lesion Ordered: 05/25/2025 documented as of this encounter Goals Goal Patient Goal Type Associated Problems Recent Progress Patient-Stated? Author Blood Pressure < 140/90 Blood Pressure 148/95(05/19 2:34 PM EST) No Chetna Cedeno MD Breast [facility] Breast Health On track(2024 11:27 AM EDT) No Jasmin Porter, RAUL Note: Patient acknowledges understanding of new diagnosis, plan of care, available resources and how to contact Nurse Navigator with any future questions or concerns. [facility] Not on track(2024 11:27 AM EDT) No Jasmin Porter, RAUL Note: Patient will be compliant with monthly SBE and is aware of who to contact for any unusual or concerning findings. 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 documented in this encounter Additional Health Concerns Assessment Noted Time PHQ-9 Depression Total Score: 17 024 8:39 AM EST PHQ-2 Depression Total Score: 5 07/07/20 24 8:39 AM EST documented as of this encounter Care Teams Shipping Lead Relationship Specialty Start Date End Date Ayush Marrero MD [address] [place] [address] PCP - General Family Medicine 03/09/25 Arlyn Schmidt MD [address] [place] [address] Consulting Physician Internal Medicine-Endocrinology, Diabetes & Metabolism 11/28/20 Tacho Echavarria MD 1 [place] [address] Internal Medicine-Medical Oncology 11/12/23 Matt Ulrich MD 1 [place] [address] Surgery-Surgical Oncology 12/04/23 Eze Brock Pastoral Care 12/13/23 Annette Walker, ARACELI Aircraft Refueller 05/13/24 Batool Ceils MD 1 [facility] [place] [address] Radiation Oncologist Radiology-Radiation Oncology 06/08/24 documented as of this encounter
--- OUTSIDE RECORDS SUMMARY | 2025-06-01 12:18 | XMS_ITS | Encounter Summary ---
Author Organization [place] [address] Care Team Providers Care It Application Administrator Name Role Phone Kit Cedeno MD Primary Care Provider [phone] Arlyn Schmidt MD Unavailable [phone] Cheryl Nair RN Unavailable [phone] Tacho Echavarria MD Unavailable [phone] Matt Ulrich MD Unavailable [phone] Hilary Clemens RN Unavailable Unavaila Eze Caro Unavailable Shila Albrecht RN Unavailable Unavail able Cheyanne To RN Unavailable Unavailabl Rayna Wong RN Unavailable Unavailab Shilpa Olivarez RN Unavailable [phone] Tulio Duong RN Unavailable Unavailable Yaquelin Weaver RN Unavailable Unavailable Pam Wang RN Unavailable Unavailable Jazmín Nair RN Unavailable Unavailable Fidel Rainey RN Unavailable Unavailable Cheryl Nair RN Unavailable [phone] Ophelia Lala RN Unavailable Glo Lee RN Unavailable Unavailab Sanam Evans PHOTOGRAPHIC SPECIALIST Unavailable Unavailable Hilary Clemens RN Unavailable Unavaila Ruthy Clayton RN Unavailable Unavailable Rayna Partida RN Unavailable Unavailab Artur Nelson RN Unavailable Unavailable Annette Walker PHOTOGRAPHIC SPECIALIST Unavailable [phone] Emmie Crain RN Unavailable Unavailable Brigida Enriquez RN Unavailable Unavailable Fidel Rainey RN Unavailable Unavailable Batool Celis MD Unavailable [phone] Ayush Marrero MD Primary Care Provider [phone] Encounter Details Date Type Department Care Team (Late st Contact Info) Description 10/25/2023 Orders Only [facility] [place] [address] Diane Ellis MD 1 [place] [address] Social History Tobacco Use Types [...] [facility] [address] [place] [address] Samm Ledesma APRN [address] [facility] [address] [place] [address] 08/12/2025 10:40 AM EST Appointment [facility]'s Wellness [place] [facility] [place] [address] Matt Ulrich MD [address] [place] [address] [address] [place] [address] 09/08/2025 2:15 PM EST Office Visit [address] [place] [address] Sin Tran MD [address] [place] [address] documented as of this encounter Goals [...] 10:4 4 AM EDT Narrative [facility] - 11/01/2023 3:02 PM EDT Requesting Provider: KIT Womack Specimen = [id number] us Diane Ellis MD PATHOLOGY ORDERABLES Final Resul t [facility] [address] [place] [id number] documented in this encounter Visit Diagnoses Not on filedocumented in this encounter Additional Health Concerns Infection Onset Date Last Indicated Resolved Time COVID-19 09/04/2024 09/04/2024 09/24/2024 10:1 2 PM EDT documented as of this encounter Care Teams It Application Administrator Relationship Specialty [place] [address] [place] [address] PCP - General 06/21/10 03/08/25 Ayush Marrero MD [address] [place] [address] PCP - General Family Medicine 03/09/25 Arlyn Schmidt MD [address] [place] [address] Consulting Physician Internal Medicine-Endocrinolog y, Diabetes & Metabolism 11/28/20 Cheryl Nair, RN Oncology Nurse Navigator 10/29/2302/05 Tacho Echavarria MD 1 [place] [address] Internal Medicine-Medical Oncology 11/12/23 Matt Ulrich MD 1 [place] [address] Surgery-Surgical Oncology 12/04/23 Hilary Clemens, [...] Nurse Infusion Therapy 04/03/24 04/03/24 Sanam Murray, PHOTOGRAPHIC SPECIALIST Percher 04/10/24 07/30/24 Hilary Clemens, RN Registered Nurse Infusion Therapy 04/21/24 04/21/24 Ruthy Walker RN Registered Nurse Infusion Therapy 04/24/24 04/24/24 Rayna Partida RN Registered Nurse Infusion Clinic 05/01/24 05/01/24 Artur Roberts RN Registered Nurse Infusion Therapy 05/07/24 05/07/24 Annette Walker, PHOTOGRAPHIC SPECIALIST Percher 05/13/24 Emmie Crain, RN Registered Nurse Infusion Therapy 05/14/24 05/14/24 Brigida Enriquez, RN Registered Nurse Infusion Clinic 05/21/24 05/21/24 Fidel Rainey, RN Registered Nurse Infusion Therapy 05/28/24 05/28/24 Batool Celis MD [address] [place] [address] [place] [address] Radiation Oncologist Radiology-Radiation Oncology 06/08/24 documented as of this encounter
--- OUTSIDE RECORDS SUMMARY | 2025-06-01 12:18 | XMS_ITS | Encounter Summary ---
Author Organization [place] [address] Care Team Providers Care Marble Mechanic Helper Name Role Phone Arlyn Schmidt MD Unavailable [phone] Tacho Echavarria MD Unavailable [phone] Matt Ulrich MD Unavailable [phone] Eze Brock Unavailable Annette Walker ACADEMIC TUTOR Unavailable [phone] Batool Celis MD Unavailable [phone] Ayush Marrero MD Primary Care Provider [phone] Reason for Visit * Reason Onset Date Comments Prior Authorization 05/28/2025 Encounter Details Date Type Department Care Team (Late st Contact Info) Description 05/28/2025 Telephone SEP Neurology [facility] [address] [place] [address] Yonatan Babcock MD [address] [place] [facility] [place] [address] Prior Authorization Social History Tobacco Use Types Packs/Day Years [...] 5 07/07/2024 [facility] - Occupational [...] in a mcc (including now)? No 11/07/[address] [facility] IP Transportation Answer D ate Recorded [...] PM EDT Macarena Marion SHAD AikenSharonda documented as of this encounter Mental Status * Because of a physical, mental or emotional condition, does this person have serious difficulty concentrating, remembering or making decisions? Answer Entry Date Author No 12/06/2022 2:08 PM EDT DoniMacarena CCMSharonda documented in this encounter Miscellaneous Notes * Telephone Encounter - Fior Covarrubias MA - 05/28/2025 9:24 AM EST The request has been approved. The authorization is effective from 05/28/2025 to 05/27/2026, as long as the member is enrolled in their current health plan. A written notification letter will follow with additional details. * Telephone Encounter - Fior Covarrubias MA - 05/28/2025 9:15 AM EST Received PA request for [facility]. Sent to [facility] alice Morel: [id number] documented in this encounter Plan of Treatment Upcoming Encounters Date Type Department Care Team (Late st Contact Info) Description 06/08/2025 12:45 PM EST Procedure visit [facility] [address] [facility] [address] [place] [address] Samm Ledesma APRN [address] [facility] [facility] [address] [place] [address] 08/12/2025 10:[address] [facility] Women's Wellness [facility] [place] [address] Matt Ulrich MD [address] [place] [address] [address] [place] [address] 09/08/2025 2:15 PM EST Office Visit [facility] [address] [facility] [address] [place] [address] Sin Tran MD [facility] [place] [address] documented as of this encounter Goals Goal Patient Goal Type Associated Problems Recent Progress Patient-Stated? Author Blood Pressure < 140/90 Blood Pressure 148/95(05/19 2:34 PM EST) No Chetna Cedeno MD Breast [facility] [...] documented as of this encounter Care Teams Marble Mechanic Helper Relationship Specialty Start Date End Date Ayush Marrero MD [address] [place] [address] PCP - General Family Medicine 03/09/25 Arlyn Schmidt MD [address] [place] [address] Consulting Physician Internal Medicine-Endocrinology, Diabetes & Metabolism 11/28/20 Tacho Echavarria MD 1 [place] [address] Internal Medicine-Medical Oncology 11/12/23 Matt Ulrich MD 1 [place] [address] Surgery-Surgical Oncology 12/04/23 Eze Brock Pastoral Care 12/13/23 Annette Walker, ACADEMIC TUTOR [place] 05/13/24 Batool Celis MD 1 [facility] [place] [address] Radiation Oncologist Radiology-Radiation Oncology 06/08/24 documented as of this encounter
[2025-06-01 12:33] VITALS: BP 119/69; PULSE 72; RESP 18; TEMP 36.6; O2SAT 98
[2025-06-01] MEDS: FULVESTRANT 250 MG/5 ML 500 MG IM (12:33)
[2025-06-01 12:36] LABS: Hematocrit 29.5 % (37.0-47.0); Hemoglobin 9.8 g/dL (12.2-16.2); Immature Granulocytes % 0.4 %; Mean Corpuscular HGB Conc 33.2 g/dL (31.8-35.4); Mean Corpuscular Hemoglobin 30.4 pg (27.0-31.2); Mean Corpuscular Volume 91.6 fl (81-99); Nucleated Red Blood Cells % 0 %; Platelet Count 172 K/mm3 (142-424); Red Blood Count 3.22 M/mm3 (4.20-5.40); Red Cell Distribution Width-SD 40.7 fL; White Blood Count 4.5 K/mm3 (4.8-10.8)
[2025-06-01 12:44] LABS: Albumin Level 3.5 g/dl (3.5-5.0); Chloride 104 mmol/L (98-107); Potassium 4.1 mmoL/L (3.5-5.1); Sodium 142 mmol/L (136-145)
[2025-06-01 12:47] LABS: Alanine Aminotransferase 19 U/L (12-78); Albumin/Globulin Ratio 1.5 (1.1-1.8); Alkaline Phosphatase 85 U/L (38-126); Anion Gap 17.1 mEq/L (5-15); Aspartate Amino Transferase 26 U/L (14-36); Bilirubin,Total 0.3 mg/dl (0.2-1.3); Blood Urea Nitrogen 9 mg/dl (7-17); Calcium 8.4 mg/dl (8.4-10.2); Carbon Dioxide 25 mmol/L (22.0-30.0); Creatinine,Serum 0.80 mg/dl (0.52-1.04); Estimated Glomerular Filt Rate 74 ml/min (>60); GFR (African American) 89 ML/MIN (>60); Globulin 2.3 g/dL (1.3-3.2); Glucose 158 mg/dl (74-100); Total Protein,Serum 5.8 g/dl (6.3-8.2)
== END 2025-06-01 23:59 | disposition home or self-care (01) ==
LOC: INF 12:14
PROVIDERS: PCP Family Medicine; Visit Provider Internal Medicine Medical Oncology
DX: D05.11 Intraductal carcinoma in situ of right breast (principal)
CPT/HCPCS: 36415; 80053; 85025; 96402; J9395

== ENCOUNTER 2025-06-02 10:00 | Outpatient (RCR) | payer MEDICAID, SELFPAY | END 2025-06-02 23:59 | disposition home or self-care (01) | LOC: PT 10:00 | PROVIDERS: PCP Family Medicine; Visit Provider Internal Medicine Medical Oncology | DX: I89.0 Lymphedema, not elsewhere classified (principal) | CPT/HCPCS: 97140 ==

== ENCOUNTER 2025-06-28 08:37 | Outpatient (CLI) | payer MEDICAID, SELFPAY ==
--- OUTSIDE RECORDS SUMMARY | 2025-05-19 14:15 | XMS_ITS | Encounter Summary ---
Author [place] [address] Care Team Providers Care Christian Science Practitioner Name Role Phone Arlyn Schmidt MD Unavailable [phone] Tacho Echavarria MD Unavailable [phone] Matt Ulrich MD Unavailable [phone] Eze Brock Unavailable Annette Walker Unavailable [phone] Batool Celis MD Unavailable [phone] Ayush Marrero MD Primary Care Provider [phone] Reason for Visit * Reason Comments Follow-up Back Pain Encounter Details Date Type Department Care Team (Late st Contact Info) Description 05/19/2025 2:15 PM EST Office Visit [facility] [address] [address] Sin Tran MD [address] [place] [address] Chronic pain syndrome (Primary Dx) Social History Tobacco Use Types [...] in a half-way (including now)? No 11/07/2023 [facility] IP Transportation Answer D ate Recorded In [...] Sign Reading Time Taken Comments Blood Pressure 148/95 05/19/2025 2:34 PM EST Pulse - - Temperature - - Respiratory Rate 18 05/19/2025 2:02 PM EST Oxygen Saturation - - Inhaled Oxygen Concentration - - Weight - - Height - - Body Mass Index - - documented in this encounter Functional Status * [...] 2:08 PM EDT Macarena [place] CCMSharonda documented as of this encounter Mental Status * Because of a physical, mental or emotional condition, does this person have serious difficulty concentrating, remembering or making decisions? Answer Entry Date Author No 12/06/2022 2:08 PM EDMacarena Brunner CCMA documented in this encounter Progress Notes * Sin Tran MD - 05/19/2025 2:15 PM EST TARGETED DRUG DELIVERY SYSTEM/INTRATHECAL PUMP ANALYSIS AND RE-PROGRAMMING VISIT: Today pain is reported to be 5/10 on VAS. The patient reports TDDS therapy partially controls theirpain to the point of making their pain more tolerable. Pain, however, remains beyond a tolerable level. Patient denies any adverse side effects with ongoing TDDS therapy. Recently rediagnosed with breast cancer. The [employer] analyzer was used to interrogate the SynchroMed [...] patient tolerated the procedure well without complications. Physical Exam: Vitals: 05/19/25 1434 BP: 148/95 Resp: Incisional scars noted. Incisions well healed. IT pump in situ. No edema, warmth, erythema, or fluctuance. Assessment/Plan: 1. Chronic pain syndrome - IT pump analyzed and re-programmed at time of visit. - Medication: Fentanyl 500 mcg/ml. - Infusion: no changes - Oral opioids only for break-through pain until IT pump optimized. Goal off oral opioids. - discussed that she should reach out if having more cancer related pain Sin Tran MD Interventional Pain Management [facility] documented in this encounter Plan of Treatment Upcoming Encounters Date Type Department Care Team (Late st Contact Info) Description 08/12/2025 10:40 AM EST Appointment [facility] Women's Wellness [facility] [place] [address] Matt Ulrich MD [address] [place] [address] [address] [place] [address] 09/07/2025 12:45 PM EST Procedure visit [facility] [address] [facility] [address] [place] [address] Samm Ledesma APRN [address] [facility] [address] [place] [address] 09/08/2025 2:15 PM EST Office Visit [facility] [place] [address] [facility] [address] [place] [address] Sin Tran MD [address] [place] [address] documented as of this encounter Goals Goal Patient Goal Type Associated Problems Recent Progress Patient-Stated? Author Blood Pressure < 140/90 Blood Pressure 148/95(11/12 /2025 2:34 PM EST) No Chetna Cedeno MD Breast Health Breast [...] Visit Diagnoses Diagnosis Chronic pain syndrome- Primary documented in this encounter Additional Health Concerns Assessment Noted Time PHQ-9 Depression Total Score: 17 024 8:39 AM EST PHQ-2 Depression Total Score: 5 07/07/20 24 8:39 AM EST documented as of this encounter Care Teams Christian Science Practitioner Relationship Specialty Start Date End Date Ayush Marrero MD [address] [place] [address] PCP - General Family Medicine 03/09/25 Arlyn Schmidt MD [address] [place] [address] Consulting Physician Internal Medicine-Endocrinology, Diabetes & Metabolism 11/28/20 Tacho Echavarria MD 1 [place] [address] Internal Medicine-Medical Oncology 11/12/23 Matt Ulrich MD 1 [place] [address] Surgery-Surgical Oncology 12/04/23 Delmy Eze Pastoral Care 12/13/23 Annette Walker, PROCESS COORDINATOR Junior Loan Processor 05/13/24 Batool Celis MD 1 [facility] [place] [address] Radiation Oncologist Radiology-Radiation Oncology 06/08/24 documented as of this encounter
--- OUTSIDE RECORDS SUMMARY | 2025-06-15 15:30 | XMS_ITS | Encounter Summary ---
Author Organization [place] [address] Care Team Providers Care Drum Worker Name Role Phone Arlyn Schmidt MD Unavailable [phone] Tacho Echavarria MD Unavailable [phone] Matt Ulrich MD Unavailable [phone] Eze Brock Unavailable Annette Walker COUNT TEAM CLERK Unavailable [phone] Batool Celis MD Unavailable [phone] Ayush Marrero MD Primary Care Provider [phone] Reason for Visit * In Office Procedure (Routine) - PCP Precert Acquired Specialty Diagnoses / Procedures Referred By Contac t Referred To Contact Neurology Diagnoses Chronic migraine without aura, intractable, with status migrainosus Procedures BOTOX COMMUNICATION ORDER AR INJECTION,ONABOTULINUMTOXINA AR CHEMODERVATE FACIAL/TRIGEM/CERV MUSC MIGRAINE Samm Ledesma CARE ATTENDANT [address] [place] [address] Phone: tel: fax: Samm Ledesma CARE ATTENDANT [address] [place] [address] Phone: tel: fax: Referral ID Status Reason Start Date Expiration Date V isits Requested Visits Authorized [id number] PCP Precert Acquired 03/10/2025 03/10/2026 1 4 Encounter Details Date Type Department Care Team (Latest Contact Info) Description 06/15/2025 3:30 PM EST Procedure visit [facility] [address] [place] [address] Samm Ledesma, CARE ATTENDANT [address] [place] [address] Chronic migraine without aura, intractable, [...] from your doctor or pharmacy? Never 11/07/2023 [employer] Util[employer] Answer Date Recorded In the past 12 months has [employer] electric, gas, oil, or water [employer] threatened to shut off services in your [...] 5 07/07/2024 [facility] - Occupational Stress Questionnaire Answer [...] health care facility (including now)? No 11/07/2023 [place] IP Transportation Answer D ate Recorded [...] 12/06/2022 2:08 PM EDT Macaerna Marion CCMA * Does this person have [...] Refills Last Filled Start Date End Date tiZANidine (ZANAFLEX) 4 mg Oral TabletIndications :Chronic migraine without aura, intractable, with status migrainosus Take 1 nightly as needed fo muscle spasms or cervicogenic headache. DO NOT TAKE AND DRIVE 30 Tablet 5 06/15/2025 rimegepant (NURTEC ODT) 75 mg Oral Tablet, Rapid Dissolve Dissolve 1 tablet in mouth at migraine onset (Max dose 75 mg/24 hours) 8 Tablet 5 06/15/2025 atogepant 60 mg Oral Tablet Take 1 Tablet by mouth daily. 30 Tablet 5 06/15/2025 documented in this encounter Discharge Disposition Disposition Code Departure Means Destination Home or Self Care documented in this encounter Progress Notes * Samm Ledesma, CARE ATTENDANT - 06/15/2025 3:30 PM EST [facility] Neurology Neurology Outpatient Progress Note [facility] 06/14/2025 PATIENT NAME: Meri Cole : 1965 CHIEF COMPLAINT: Chronic Refractory Headaches (346.91, 327.23) LAST INJECTION: 03/10/2025 PROCEDURE VISIT # 20 PRIMARY NEUROLOGIST: JOHANN Ledesma Current migraine treatment: Botox started 11/11/2019- restarted 03/17/2024) Qulipta 60 mg daily (started 09/2024) Tizanidine PRN Compazine Toradol (CB) Tramadol Past/Failed headache therapy: Ubrelvy Nurtec - ineffective Toradol PO- works prn Ajovy Topamax Ultram Imitrex - tongue swelling PROCEDURE: Botulinum Toxin - Botox A. (200 units) Dilution 1:1 (with NS) Risks and benefits of the procedure were explained to the patient. Written and verbal consent obtained today and witnessed by Corbin Garibay. Monthly migraine frequency: - Repeat injections today. [...] Given neck and traps Botox provided by: Juan [employer] Botox Lot number: [id number] EXP 05/2027 [facility] # [id number] [place] Lot number: [id number] EXP 12/2026 IMPRESSION: Repeat botox injection. Will return every [...] encounter Miscellaneous Notes * Addendum Note - Corbin Garibay MA - 06/15/2025 3:30 PM ESTAddended by: CORBIN GARIBAY on: 06/15/2025 04:59 PM Modules accepted: Orders documented in this encounter Plan of Treatment Upcoming Encounters Date Type Department Care Team (Late st Contact Info) Description 08/12/2025 10:40 AM EST Appointment [facility] Women's Wellness [facility] [place] [address] Matt Ulrich MD [address] [place] [address] [address] [place] [address] 09/07/2025 12:45 PM EST Procedure visit [facility] [address] [facility] [address] [place] [address] Samm Ledesma APRN [address] [facility] [address] [place] [address] 09/08/2025 2:15 PM EST Office Visit [address] [place] [address] Sin Tran MD [address] [place] [address] documented as of this encounter Goals [...] with any future questions or concerns. Breast [facility] Not on track(2024 11:27 AM EDT) No Jasmin Porter, RAUL Note: Patient will be compliant with monthly SBE and is aware of who to contact for any unusual or concerning findings. Breast [facility] Breast Health On track(2024 11:27 [...] 155 Units, Intramuscular, ONCE, 1 dose, On Sat06/15/25 at 1700, Dx: 1. Chronic migraine without aura, intractable, with status migrainosusIndications:Chronic migraine without aura, intractable, with status migrainosus Given 06/15/2025 4:59 PM EST 155 Units Other documented in this encounter Discontinued Medications Medication Sig Discontinue Reason Start Date End Da te atogepant 60 mg Oral Tablet Take 1 Tablet by mouth daily. 02/02/2025 06/15/2025 rimegepant (NURTEC ODT) 75 mg Oral Tablet, Rapid Dissolve Dissolve 1 tablet in mouth at migraine onset (Max dose 75 mg/24 hours) 02/02/2025 06/15/2025 tiZANidine (ZANAFLEX) 4 mg Oral TabletIndications:Station Engineer shelia migraine without aura, intractable, with status migrainosus Take 1 tab nightly for cervicogenic headache and 1/2 tab daily prn for breakthrough pain. DO NOT TAKE AND DRIVE Reorder 11/15/2022 06/15/2025 documented as of this encounter Historical Medications * This list may reflect changes made after this encounter. traMADoL (ULTRAM) 50 mg Oral Tablet Take 50 mg by mouth every 6 hours as needed for Pain. 04/02/2025 added in this encounter Additional Health Concerns Assessment Noted Time PHQ-9 Depression Total Score: 17 024 8:39 AM EST PHQ-2 Depression Total Score: 5 07/07/20 24 8:39 AM EST documented as of this encounter Care Teams Drum Worker Relationship Specialty Start Date End Date Ayush Marrero MD [address] [place], [place] [id number] PCP - General Family Medicine 03/09/25 Arlyn Schmidt MD [address] [place], [place] [id number] Consulting Physician Internal Medicine-Endocrinology, Diabetes & Metabolism 11/28/20 Tacho Echavarria MD 1 [place] [address] Internal Medicine-Medical Oncology 11/12/23 Matt Ulrich MD 1 [place] [address] Surgery-Surgical Oncology 12/04/23 Eze Brock Pastoral Care 12/13/23 Annette Walker, ARACELI Revenue Enforcement Collection Agent 05/13/24 Batool Celis MD 1 [place] [address] Radiation Oncologist Radiology-Radiation Oncology 06/08/24 documented as of this encounter
--- OUTSIDE RECORDS SUMMARY | 2025-06-28 08:40 | XMS_ITS | Encounter Summary ---
Author Organization [place] [address] Care Team Providers Care Investigation Division Lieutenant Name Role Phone Arlyn Schmidt MD Unavailable [phone] Tacho Echavarria MD Unavailable [phone] Matt Ulrich MD Unavailable [phone] Eze Brock Unavailable Annette Walker SPIKE DRIVER Unavailable [phone] Batool Celis MD Unavailable [phone] Ayush Marrero MD Primary Care Provider [phone] Reason for Visit * Reason Onset Date Comments Botox Injection 06/16/2025 Due 09/07/25 Encounter Details Date Type Department Care Team (Late st Contact Info) Description 06/16/2025 Patient Outreach [facility] [address] [place] [address] Samm Ledesma, STUMP BLOWER [address] [address] Botox Injection (Due 09/07/25) Social History Tobacco Use Types Packs/Day Years [...] Date Recorded PHQ-2 Total Score 5 07/07/2024 [facility] [place] of Occupat ional Health - [...] (including now)? No 11/07/2023 [facility] IP Transportation Answer D ate [...] Encounter - Zina Medina, Clerical Staff - 06/16/2025 6:59 AM EST APPROVED: [id number] AUTH #: [id number] DATES OF APPROVAL: 03/10/2025-03/10/2026 UNITS APPROVED: 800 units/ 4 visits BUY & BILL Please use referral #[id number] for scheduling. documented in this encounter Plan of Treatment Upcoming Encounters Date Type Department Care Team (Late st Contact Info) Description 08/12/2025 10:40 AM EST Appointment [facility] Women's Wellness [place] [address] Matt Ulrich MD [address] [place] [address] [address] [place] [address] 09/07/2025 12:45 PM EST Procedure visit [facility] [address] [facility] [address] [place] [address] Samm Ledesma APRN [address] [facility] [address] [place] [address] 09/08/2025 2:15 PM EST Office Visit [address] [address] Sin Tran MD [address] [place] [address], [place] [address] documented as of this encounter Goals Goal [...] documented as of this encounter Care Teams Investigation Division Lieutenant Relationship Specialty Start Date End Date Ayush Marrero MD [address] [place] [address] PCP - General Family Medicine 03/09/25 Arlyn Schmidt MD [address] [place] [address] Consulting Physician Internal Medicine-Endocrinology, Diabetes & Metabolism 11/28/20 Tacho Echavarria MD 1 [place] [address] Internal Medicine-Medical Oncology 11/12/23 Matt Ulrich MD [address] [place] [id number] Surgery-Surgical Oncology 12/04/23 Eze Brock Pastoral Care 12/13/23 Annette Walker, SPIKE DRIVER Relay Operator 05/13/24 Batool Celis MD [address] [facility] [place] [address] Radiation Oncologist Radiology-Radiation Oncology 06/08/24 documented as of this encounter
--- OUTSIDE RECORDS SUMMARY | 2025-06-28 08:40 | XMS_ITS | Encounter Summary ---
Author Organization [facility] Address [facility] [place] [address] Care Team Providers Care Furnace Repairer Name Role Phone Chetna Cedeno MD Primary Care Provider [phone] Arlyn Schmidt MD Unavailable [phone] Tacho Echavarria MD Unavailable [phone] Matt Ulrich MD Unavailable [phone] Eze Brock Unavailable Cheryl Nair RN Unavailable [phone] Sanam Murray HEALTH CARE SPECIALIST Unavailable Unavailable Annette Walker HEALTH CARE SPECIALIST Unavailable [phone] Batool Celis MD Unavailable [phone] Ayush Marrero MD Primary Care Provider [phone] Encounter Details Date Type Department Care Team (Late st Contact Info) Description 07/06/2024 Orders Only [facility] [address] [place] [address] Shilpa Tan MD [address] [place] [phone] Social History Tobacco Use Types Packs/Day Years [...] from your doctor or pharmacy? Never 11/07/2023 [facility] Utilities Answer Date Recorded In [...] PHQ-2 Total Score 5 07/07/2024 [facility] of Occupat ional Health - Occupational Stress [...] a skilled nursing (including now)? No 11/07/2023 [facility] [...] Info) Description 08/12/2025 10:40 AM EST Appointment [facility] Women's Wellness [facility] [place] [address] Matt Ulrich MD [address] [place] [address] [address] [place] [id number] 09/07/2025 12:45 PM EST Procedure visit [facility] [address] [facility] [address] [place] [address] Samm Ledesma APRN [address] [facility] [address] [place], [place] [id number] 09/08/2025 2:15 PM EST Office Visit [address] [place] [address] Sin Tran MD [address] [place] [address] documented as of this encounter Goals [...] Narrative [facility] - 09/24/2024 2:31 PM EDT Requesting Provider: MATT Womack Specimen = [id number] us Shilpa Tan MD PATHOLOGY ORDERABLES Final R esult [facility] 1 [place] [address] documented in this encounter Visit Diagnoses Not on filedocumented in this encounter Additional Health Concerns Infection Onset Date Last Indicated Resolved Time COVID-19 09/04/2024 09/04/2024 09/24/2024 10:1 2 PM EDT Assessment Noted Time PHQ-9 Depression Total Score: 12 024 12:00 PM EDT documented as of this encounter Care Teams Furnace Repairer Relationship Specialty [place] [address] [place] [address] PCP - General 06/21/10 03/08/25 Ayush Marrero MD [address] [place], [place] [id number] PCP - General Family Medicine 03/09/25 Arlyn Schmidt MD [address] [place] [address] Consulting Physician Internal Medicine-Endocrinology , Diabetes & Metabolism 11/28/20 Tacho Echavarria MD 1 [place] [address] Internal Medicine-Medical Oncology 11/12/23 Matt Ulrich MD 1 [place] [address] Surgery-Surgical Oncology 12/04/23 Eze Brock Pastoral Care 12/13/23 Cheryl Nair, RN Oncology Nurse Navigator 03/25/2412/13 Sanam Murray MSW Chemistry Quality Control Technician 04/10/24 07/30/24 Annette Walker MSW Chemistry Quality Control Technician 05/13/24 Batool Celis MD 1 [facility] [place] [address] Radiation Oncologist Radiology-Radiation Oncology 06/08/24 documented as of this encounter
--- OUTSIDE RECORDS SUMMARY | 2025-06-28 08:40 | XMS_ITS | Encounter Summary ---
Author Organization [place] [address] Care Team Providers Care Senior Control Systems Engineer Name Role Phone Arlyn Schmidt MD Unavailable [phone] Tacho Echavarria MD Unavailable [phone] Matt Ulrich MD Unavailable [phone] Eze Brock Unavailable Annette Walker SUPERVISOR SPEECH Unavailable [phone] aBtool Celis MD Unavailable [phone] Ayush Marrero MD Primary Care Provider [phone] Reason for Visit * Reason Onset Date Comments No Show 06/08/2025 [facility] Encounter Details Date Type Department Care Team (Late st Contact Info) Description 06/08/2025 Telephone [facility] Neurology [facility] [address] [place] [address] Samm Ledesma, VETERINARY SURGERY TECHNICIAN [address] [address] No Show (SNC) Social History Tobacco Use Types Packs/Day Years [...] in a fci (including now)? No 11/07/2023 [facility] IP Transportation Answer [...] 12/06/2022 2:08 PM EDT Macarena aMrion CCMA documented in this encounter Miscellaneous Notes * Telephone Encounter - Zina Medina, Clerical Staff - 06/08/2025 9:37 AM EST Canceled appointment less than 24 hrs prior to scheduled appointment time documented in this encounter Plan of Treatment Upcoming Encounters Date Type Department Care Team (Late st Contact Info) Description 08/12/2025 10:40 AM EST Appointment [facility] Women's Wellness [facility] [place] [address] Matt Ulrich MD [address] [place] [address] [address] [place] [address] 09/07/2025 12:45 PM EST Procedure visit [facility] [address] [facility] [address] [place] [address] Samm Ledesma, VETERINARY SURGERY TECHNICIAN [address] [facility] [address] [place] [address] 09/08/2025 2:15 PM EST Office Visit [facility] [address] [facility] [address] [place] [address] Sin Tran MD [address] [place] [address] documented as of this encounter [...] as of this encounter Care Teams Senior Control Systems Engineer Relationship Specialty Start Date End Date Ayush Marrero MD [address] [place] [address] PCP - General Family Medicine 03/09/25 Arlyn Schmidt MD [address] [place] [address] Consulting Physician Internal Medicine-Endocrinology, Diabetes & Metabolism 11/28/20 Tacho Echavarria MD [address] [place] [address] Internal Medicine-Medical Oncology 11/12/23 Matt Ulrich MD 1 [place] [address] Surgery-Surgical Oncology 12/04/23 Eze Brock Pastoral Care 12/13/23 Annette Walker, SUPERVISOR SPEECH Valve And Regulator Repairer 05/13/24 Batool Celis MD 1 [facility] [place] [address] Radiation Oncologist Radiology-Radiation Oncology 06/08/24 documented as of this encounter
--- OUTSIDE RECORDS SUMMARY | 2025-06-28 08:40 | XMS_ITS | Clinical Summary ---
Author Organization [facility] Address [address] [facility] [address] [place], [place] [address] Phone Care Team Providers Care Veneer Glue Spreader Name Role Phone Arlyn Schmidt MD Unavailable [phone] Tacho Echavarria MD Unavailable [phone] Matt Ulrich MD Unavailable [phone] Eze Brock Unavailable Annette Walker BEAD FORMING MACHINE OPERATOR Unavailable [phone] Batool Celis MD Unavailable [phone] Ayush Marrero MD Primary Care Provider [phone] Allergies Active Allergy Reactions Criticality Noted Date [...] route as needed. 1 Device 020 Active MAGIC MOUTHWASH (LIDO/DIPHEN/NY STAT) ORAL COMPOUNDIndicat [...] as needed for Wheezing. 1 Each 11 024 Active fluticasone furoate-vilante roL (BREO ELLIPTA) 200-25 mcg/dose Inhl Disk with DeviceIndicatio ns:Mild intermittent asthma, unspecified whether complicated Inhale 1 Puff into the lungs daily. 1 Each 024 Active fluticasone propionate (FLONASE) 50 mcg/actuation Nasl [place], Suspension 1 [place] by Nasal route daily. 1 Each 024 [...] recurrent major depressive disorder, without psychotic features ([facility]),KAYODE (generalized anxiety disorder) Take 1 Tablet by mouth daily. 30 Tablet 1 025 Active rOPINIRole (REQUIP) 0.25 mg Oral [...] Tablet Take 10 mg by mouth once. Active oxybutynin (DITROPAN-XL) 5 mg Oral Tablet [...] PORT ACCESS. 30 g 1 025 Active exemestane (AROMASIN) 25 mg Oral TabletIndicatio ns:Invasive ductal carcinoma of breast, female, right (HCC),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),Right breast cancer with T3 tumor, >5 cm in greatest dimension (HCC) Take 1 Tablet by mouth daily. 90 Tablet 025 Active Additional Information Patient not taking.Reason: Therapy Completed, Reported on 05/19/2025 atogepant 60 mg Oral Tablet Take 1 Tablet by mouth daily. 30 Tablet 5 025 Active rimegepant (NURTEC ODT) 75 mg Oral Tablet, Rapid Dissolve Dissolve 1 tablet in mouth at migraine onset (Max dose 75 mg/24 hours) 8 Tablet 5 025 Active traMADoL (ULTRAM) 50 mg Oral Tablet Take 50 mg by mouth every 6 hours as needed for Pain. 025 Active tiZANidine (ZANAFLEX) 4 mg Oral TabletIndicatio ns:Chronic migraine without aura, intractable, with status migrainosus Take 1 nightly as needed fo muscle spasms or cervicogenic headache. DO NOT TAKE AND DRIVE 30 Tablet 5 025 Active tiZANidine (ZANAFLEX) 4 mg Oral TabletIndicatio ns:Chronic migraine without aura, intractable, with status migrainosus Take 1 tab nightly for cervicogenic headache and 1/2 tab daily prn for breakthrough pain. DO NOT TAKE AND DRIVE 45 Tablet 5 023 2024 Discontinued(R eorder) atogepant 60 mg Oral Tablet Take 1 Tablet by mouth daily. 30 Tablet 5 04/01/20 25 10:14 AM EDT 025 2024 Discontinued rimegepant (NURTEC ODT) 75 mg Oral Tablet, Rapid Dissolve Dissolve 1 tablet in mouth at migraine onset (Max dose 75 mg/24 hours) 8 Tablet 5 04/01/20 25 10:14 AM EDT 025 2024 Discontinued Hospital, Clinic, or Other Facility Administered Medication Ordered Dose Route Frequency Start Date End Date Status botulinum toxin type A (BOTOX) injection 155 UnitsIndications:Chronic migraine without aura, intractable, with status migrainosus 155 Units IM ONCE 06/15/2025 06/15/2025 Ended Active Problems Patient Care Coordination No te Formatting of this note migh t be different from the original. 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 uses Goodfilmscort as directed by me. Asthma 12/20/2010 03/26/2022 Encounters Date Type Department Care Team Description 06/16/2025 Patient Outreach [facility] [place] [id number] [place] [address] Samm Ledesma APRN Botox Injection (Due 09/07/25) 06/15/2025 3:30 PM EST Procedure visit [facility] [address] [place] [address] Samm Ledesma APRN Chronic migraine without aura, intractable, with status migrainosus (Primary Dx) Discharge Disposition: Home or Self Care 06/08/2025 Telephone [facility] [address] [place] [address] Samm Ledesma APRN No Show (SNC) 05/28/2025 Telephone [facility] [place] [address] [place] [address] Yonatan Babcock MD Prior Authorization 05/25/2025 Telephone [facility] [place] [address] [place] [address] Samm Ledesma APRN Referral (Transfer of care) 05/19/2025 2:15 PM EST Office Visit [address] [address] Sin Tran MD Chronic pain syndrome (Primary Dx) 04/27/2025 Patient Outreach [facility] [place] [address] [place] [address] Samm Ledesma APRN Botox Injection (Due 06/02/25) 04/23/2025 [place] [place] [address] Josie Almaraz, Clerical Staff Cancelled Appointment (For 04/29/25 with [facility] (6 month f/u)) 04/23/2025 Specialty Pharmacy [facility] [address] [place] [address] Annamarie Mark, [facility] Migraine Medication Management (Qulipta) 04/09/2025 2:46 PM EDT - 04/09/2025 11:59 PM EDT Hospital Encounter [facility] [address] [place] [address] Adryan Rowan MD Intraductal carcinoma in situ of right breast Discharge Disposition: Home or Self Care 04/09/2025 [facility]phone [place] [address] Adryan Rowan MD Information Only (MRI order ) 04/02/2025 [facility]phone [place] [address] Tacho Echavarria MD Schedule Appointment (Call from Dr. Rowan's office to schedule MRI ) 03/30/2025 Specialty Pharmacy [facility] [address] [place] [address] Charlotte Martino [facility] Migraine Medication Management (Qulipta/Nurtec) from Last 3 Months Immunizations Immunization Administration Dates Next Due Influenza High Dose 06/25/2024, 4(Deferred: Other - patient is getting vaccine at [facility]) Influenza Vaccine Quadrivalent PF 03/27/2023,01/2015 Influenza [...] davis dilation; Surgeon: Stone Cronin MD; Location: [facility] ENDOSCOPY; Service: Endoscopy GASTRIC BYPASS SURGERY [...] MD [facility] IMAGING BREAST BIOPSY 10/25/2023 Right 5:00 and 6:00 IR PORT PLACEMENT EQUAL OR > 5 YEARS 11/29/2023 IR PORT PLACEMENT EQUAL OR > 5 YEARS 11/29/2023 Joselito Goodwin MD HECTOR IR MASTECTOMY 07/06/2024 Right Right modified radical mastectomy; Surgeon: Matt Ulrich MD; Location: [facility] MAIN OR; Service: General CENTRAL VENOUS CATHETER [...] . Diabetes Brother 2 Diabetes Brother 3 Shungeorgeniki Cole Diabetes Brother 4 My oldest son Co [place] Man Diabetes Father Jorge Cole Diabetes for 30 years now. Unknown Father Jorge Cole Parkinson's Disease Maternal Grandfather Nevaeh Mirza road test examiner Diabetes Maternal Grandmother Griskoko Mirza Arthritis Mother Lori Solorzano Unknown Mother [...] Alive Father Jorge Cole Alive Maternal Grandfather Nevaeh Mirza Alive Maternal Grandmother Gris Mirza Alive [...] In the past 12 months has e [employer], gas, oil, or water [employer] threatened to shut off services in your home? No 07/07/2024 Social Connection and Isolation Panel Answer Date Recorded In a typical week, how many times do you talk on the phone with family, friends, or neighbors? Once a week 11/07/19 How often do you get togethe r with friends or relatives? Once a week 11/07/2023 How often do you attend chur or roman catholic services? 1 to 4 [...] Total Score 5 07/07/2024 [facility] of Occupat ional Health - Occupational Stress [...] in a jail (including now)? No 11/07/2023 [facility] IP Transportation Answer D [...] Info) Description 08/12/2025 10:40 AM EST Appointment [facility] Women's Wellness [facility] [place] [address] Matt Ulrich MD [address] [place] [address] [address] [place] [id number] 09/07/2025 12:45 PM EST Procedure visit [facility] [address] [facility] [address] [place] [address] Samm Ledesma APRN [address] [facility] [facility] [facility] [address] [place] [address] 09/08/2025 2:15 PM EST Office Visit [address] [place] [address] Sin Tarn MD [address] [place] [address] Health Maintenance Due Date Last Done [...] Colonoscopy 07/12/2025 07/12/2015 Breast Cancer Screening 01/26/2026 01/27/20, 10/14/2023, 05/30/2021, Additional history exists Pneumococcal Vaccine 50+ Completed 03/26/2022, 04/07 Influenza Vaccine Completed 04/26/2025, , 03/27/2023, Additional history exists Meningococcal B Vaccine Aged Out No l onger eligible based on patient's age to complete this topic Goals Goal Patient Goal Type Associated Problems Recent Progress Patient-Stated? Author Blood Pressure < 140/90 Blood Pressure 148/95(05/19 2:34 PM EST) No Chetna Cedeno MD Breast [facility] Breast Health On track(2024 11:27 AM EDT) No Jasmin Porter, RAUL Note: Patient acknowledges understanding of new diagnosis, plan of care, available resources and how to contact Nurse Navigator with any future questions or concerns. Breast [facility] Breast Health Not on track(2024 11:27 AM EDT) No Jasmin Porter RN Note: Patient will be compliant with monthly SBE and is aware of who to contact for any unusual or concerning findings. Breast [facility] Breast Health On track(2024 11:27 AM EDT) No Demi Garibay, RAUL Note: Patient will be compliant with taking Aromatase Inhibitor daily and understands who to contact to discuss any side effects or complications. Maintain a healthy diet, exercise regularly and maintain an ideal body weight General Sanam Champion MA Medical Devices Implanted Type Area Final Installer Inspector Device Identifier Shelf Expiration Date Model / Serial / Lot Kit Acc .133in Injex Didi Baso4 Biwing Flxb Rem Tl Preld - [id number] Implanted:Qty: 1 on 02/24/2020 by Munir Hilton MD at [facility] N/A: Back [employer]:NEURO 10/28/2023 [id number] / / [id number] Neurostimulator Rechar Adapt-Stim Sure Scan Intellis - [id number] Implanted:Qty: 1 [facility] [employer]:NEURO 12/19/2020 [id number] / [id number] / Kit Lead Percutaneous Mri Surescan Vectris 1x8 60cm - [id number] Implanted:Qty: 1 on 02/24/2020 by Munir Hilton MD at [facility] N/A: Back [employer]:NEURO 09/09/2023 [id number] / / [id number] Kit Lead Percutaneous Mri Surescan Vectris 1x8 60cm - [id number] Implanted:Qty: 1 on 02/24/2020 by Munir Hilton MD at [facility] NA: Back [employer]:NEURO 10/08/2023 [id number] / / [id number] Device Suturing Mechanical Fixate Tissue Band - [id number] Implanted:Qty: 1 on 02/24/2020 by Munir Hilton MD at [facility] NA: Back [employer]:NEUROMODULA TION 02/03/2024-- / / [id number] Device Suturing Mechanical Fixate Tissue Band - [id number] Implanted:Qty: 1 on 02/24/2020 by Munir Hilton MD at [facility] N/A: Back [employer]:NEUROMODULA TION 02/03/2024 FB-101- / / [id number] Envelope Absorbable Tyrx Polyarylate Medium 2.7in X 2.5in - [id number] Implanted:Qty: 1 on 02/24/2020 by Munir Hilton MD at [facility] N/A: Back [employer]:NEURO 12/03/2020 [id number] / / [id number] Device Sut Fixate Anchr Ld Tiss Bnd [id number] - [id number] Implanted:Qty: 1 on 01/04/2021 by Munir Hilton MD at [facility] N/A: Back [employer]:NEUROMODULA TION [id number] 10/25/2024 FB-101-01 / / [id number] Cath It 1-Pc 114cm 86cm Didi 4-Lyr Sut-Ls Gear Roller Conn Lng Spin - [id number] Implanted:Qty: 1 on 01/04/2021 by Munir Hilton MD at [facility] N/A: Back [employer]:NEURO 12/10/2022 [id number] / / [id number] Pump It 2.5mm [id number] Flxb Synchromed Ii Rsvr Bk - [id number] Implanted:Qty: 1 on 01/04/2021 by Munir Hilton MD at [facility] N/A: Back [employer]:NEURO 01/02/2022 8637-20 / [id number] / Port Infs 8fr Sarah 1.6x2.6mm Xcela Pwr Inj Lpro Ti Pu-11/29/2023 Implanted:Qty: 1 on 11/29/2023 by Joselito Goodwin MD [facility] [id number] / / [id number] Procedures Procedure Name Priority Date/Time Associated Diagnosis Comments MRI BRAIN ATTN PITUITARY W WO CONTRAST STAT 04/09/2025 3:35 PM EDT Intraductal carcinoma in situ of right breast MM MAMMO DIGITAL STEPHANE DIAGN RIGHT Routine [...] HISTORY: D05.11-Intraductal carcinoma in situ of right bcheoo-GHP-45-CM. COMPARISON: CT brain 01/12/2024, MRI 01/06/2024 and [...] HISTORY: D05.11-Intraductal carcinoma in situ of right tnvvjs-HSB-40-CM. COMPARISON: CT brain 01/12/2024, MRI 01/06/2024 and dating back to05/01/2018. PROCEDURE COMMENTS: Multiplanar sequences obtained with and withoutGadolinium contrast as recorded in Epic.. Sequences include thin section precontrastand dynamic post contrast coronal T1 images through the sella. FINDINGS: Redemonstrated is a lesion along the superior aspect of the pituitarygland measuring approximately 9 mm across with a crescentic anterior A1gdxkeenilhsd component. This lesion otherwise appears filled by [...] the ordering clinician. us Adryan Rowan MD [facility] MRI ORDERABLES Final Resul t * MM MAMMO DIGITAL STEPHANE DIAGN RIGHT (01/27/2024 11:20 AM EDT) Anatomical Region Laterality Modality Breast Right Mammography 01/27/2024 12:5 7 PM EDT Impressions 01/27/2024 12:57 PM EDT Incomplete-need additional imaging evaluation (MPE-Swwvcikb-0) ~ RECOMMENDATION: Ultrasound of the right breast. [...] the next mammogram, in accordance with the [place] [employer] and the Society [...] sinceprior. ~ IMPRESSION: Incomplete-need additional imaging evaluation (PFC-Zdidcstl-6) ~ RECOMMENDATION: Ultrasound of the right breast. [...] the next mammogram, in accordance with the [place] [employer] and the Society of Breast Imaging recommendations. us Jeanette Smith APRN IMG MAMMOGRAPHY ORDERABLES Final Result * GMED COLONOSCOPY (07/12/2015 2:30 PM EST) 07/12/2015 2:30 PM EST Impressions [facility] - 07/12/2015 3:30 PM [...] ORDERABLES Doris l Result Performing Organization Address City/State/[facility] Co de Phone Number [facility] [address] [place] [address] from Last 3 Months or Most Recently Relevant to Health Maintenance Insurance MDR [facility] [id number] MDR [id number] [place] [id number] Advance Directives For more information, please contact: [phone] * Full Code (Latest Code Status on File) Date Activated Date Inactivated Comments 05/01/2017 2:57 PM 05/03/2017 5:30 PM Care Teams Veneer Glue Spreader Relationship Specialty Start Date End Date Ayush Marrero MD [address] [place] [address] PCP - General Family Medicine 03/09/25 Arlyn Schmidt MD [address] [place] [address] Consulting Physician Internal Medicine-Endocrinology, Diabetes & Metabolism 11/28/20 Tacho Echavarria MD [address] [place] [address] Internal Medicine-Medical Oncology 11/12/23 Matt Ulrich MD 1 [place] [address] Surgery-Surgical Oncology 12/04/23 Eze Brock Pastoral Care 12/13/23 Annette Walker, BEAD FORMING MACHINE OPERATOR Disease Management Nurse 05/13/24 Batool Celis MD 1 [facility] [address] Radiation Oncologist Radiology-Radiation Oncology 06/08/24
--- OUTSIDE RECORDS SUMMARY | 2025-06-28 08:40 | XMS_ITS | Encounter Summary ---
Author Organization [place] [address] Care Team Providers Care Citrix Lead Name Role Phone Kit Cedeno MD Primary Care Provider [phone] Arlyn Schmidt MD Unavailable [phone] Cheryl Nair RN Unavailable [phone] Tacho Echavarria MD Unavailable [phone] Matt Ulrich MD Unavailable [phone] Hilary Clemens RN Unavailable Unavaila Eze Caro Unavailable Shila Albrecht RN Unavailable Unavail able Cheyanne To RN Unavailable Unavailabl Rayna Wong RN Unavailable Unavailab Shilpa Olivarez RN Unavailable [phone] Tulio Duong RN Unavailable Unavailable Yaquelin Weaver RN Unavailable Unavailable Pam Wang RN Unavailable Unavailable Jazmín Nair RN Unavailable Unavailable Fidel Rainey RN Unavailable Unavailable Cheryl Nair RN Unavailable [phone] Ophelia Lala RN Unavailable Glo Lee RN Unavailable Unavailab Sanam Evans JORDAN MAN Unavailable Unavailable Hilary Clemens RN Unavailable Unavaila Ruthy Clayton RN Unavailable Unavailable Rayna Partida RN Unavailable Unavailab Artur Nelson RN Unavailable Unavailable Annette Walker JORDAN MAN Unavailable [phone] Emmie Crain RN Unavailable Unavailable Brigida Enriquez RN Unavailable Unavailable Fidel Rainey RN Unavailable Unavailable Batool Celis MD Unavailable [phone] Ayush Marrero MD Primary Care Provider [phone] Encounter Details Date Type Department Care Team (Late st Contact Info) Description 10/25/2023 Orders Only [facility] [place] [address] Diane Ellis MD 1 [place] [address] Social History Tobacco Use Types Packs/Day Years [...] No 12/06/2022 2:08 PM EDT Macarena Marion, SHADA * Is the person blind or does [...] Description 08/12/2025 10:40 AM EST Appointment [facility] [place] [address] Matt Ulrich MD [address] [place] [address] [address] [place] [address] 09/07/2025 12:45 PM EST Procedure visit [facility] [address] [facility] [address] [place] [address] Samm Ledesma APRN [address] [facility] [address] [place] [address] 09/08/2025 2:15 PM EST Office Visit [facility] [address] [facility] [address] [facility] 1D [place] [address] Sin Tran MD [address] [place] [address] documented as of this encounter Goals Goal Patient Goal Type Associated Problems Recent Progress Patient-Stated? Author Blood Pressure < 140/90 Blood Pressure 148/95(2024 2:34 PM EST) No Kit Cedeno MD Maintain a healthy diet, exercise regularly and maintain an ideal body weight General No Sanam Julio MA documented as of this encounter Procedures Procedure Name Priority Date/Time Associated Diagnosis Comments NEOGENOMICS HER2 BREAST Routine 10/25/2023 10:44 AM EDT documented in this encounter Results * NEOGENOMICS HER2 BREAST (10/25/2023 10:44 AM EDT) 10/25/2023 10:4 4 AM EDT Narrative [facility] - 11/06/2023 7:12 PM EDT Requesting Provider: KIT Harpermiguel Specimen = [id number] us Diane Ellis MD PATHOLOGY ORDERABLES Final Resul t [facility] [address] [place] [address] documented in this encounter Visit Diagnoses Not on filedocumented in this encounter Additional Health Concerns Infection Onset Date Last Indicated Resolved Time COVID-19 09/04/2024 09/04/2024 09/24/2024 10:1 2 PM EDT documented as of this encounter Care Teams Citrix Lead Relationship Specialty [place] [address] [place] [address] PCP - General 06/21/10 03/08/25 Ayush Marrero MD [address] [place] [address] PCP - General Family Medicine 03/09/25 Arlyn Schmidt MD [address] [place] [address] Consulting Physician Internal Medicine-Endocrinolog y, Diabetes & Metabolism 11/28/20 Cheryl Nair, RN Oncology Nurse Navigator 10/29/2302/05 Tacho Echavarria MD 1 [place] [address] Internal Medicine-Medical Oncology 11/12/23 Matt Ulrich MD 1 [facility] [place] [address] Surgery-Surgical Oncology 12/04/23 Hilary Clemens, RN Registered Nurse Infusion Therapy 12/05/23 12/05/23 Eze Brock Pastoral Care 12/13/23 Shila Albrecht, RN Registered Nurse Infusion Therapy 12/19/23 12/19/23 Cheyanne To, RN Registered Nurse Infusion Therapy 01/16/24 01/16/24 Rayna Partida RN Registered Nurse Infusion Clinic 01/23/24 01/23/24 Shilpa Cline RN Oncology Nurse Navigator 02/04/2403/09 Tulio Duong, [...] Nurse Infusion Therapy 04/03/24 04/03/24 Sanam Murray, JORDAN MAN Cleaning Custodian 04/10/24 07/30/24 Hilary Clemens, RN Registered Nurse Infusion Therapy 04/21/24 04/21/24 Ruthy Walker RN Registered Nurse Infusion Therapy 04/24/24 04/24/24 Rayna Partida, RN Registered Nurse Infusion Clinic 05/01/24 05/01/24 Artur Roberts RN Registered Nurse Infusion Therapy 05/07/24 05/07/24 Annette Walker, JORDAN MAN Cleaning Custodian 05/13/24 Emmie Crain, RN Registered Nurse Infusion Therapy 05/14/24 05/14/24 Brigida Enriquez, RN Registered Nurse Infusion Clinic 05/21/24 05/21/24 Fidel Rainey, RN Registered Nurse Infusion Therapy 05/28/24 05/28/24 Batool Celis MD [address] [place] [address] [place] [address] Radiation Oncologist Radiology-Radiation Oncology 06/08/24 documented as of this encounter
--- OUTSIDE RECORDS SUMMARY | 2025-06-28 08:40 | XMS_ITS | Encounter Summary ---
Author Organization [place] [address] Care Team Providers Care Boiler Attendant Name Role Phone Chetna Cedeno MD Primary Care Provider [phone] Arlyn Schmidt MD Unavailable [phone] Tacho Echavarria MD Unavailable [phone] Matt Ulrich MD Unavailable [phone] Eze Brock Unavailable Cheryl Nair RN Unavailable [phone] Annette Walker TOASTER ELEMENT REPAIRER Unavailable [phone] Batool Celis MD Unavailable [phone] Ayush Marrero MD Primary Care Provider [phone] Encounter Details Date Type Department Care Team (Late st Contact Info) Description 09/11/2024 Lab Requisition [facility] [place] [address] Beata Kebede MD [address] [place] [address] Social History Tobacco Use Types Packs/Day Years [...] in a halfway (including now)? No 11/07/2023 [facility] IP Transportation Answer [...] Info) Description 08/12/2025 10:40 AM EST Appointment [facility] Women's Wellness [facility] [place] [address] Matt Ulrich MD [address] [place] [address] [address] [place] [address] 09/07/2025 12:45 PM EST Procedure visit [facility] [address] [facility] [address] [place], [place] [id number] Samm Ledesma APRN [address] [facility] [address] [place], [place] [address] 09/08/2025 2:15 PM EST Office Visit [address] [place] [address] Sin Tran MD [address] [place] [address] documented as of this encounter Goals [...] EST) CASE REPORT Surgical Pathology Report Case: [id number] Authorizing Provider: Beata Kebede MD Collected: 09/11/2024 1313 Ordering Location: [facility] Received: 09/11/2024 1313 Pathologist: Diane Ellis MD Specimen: Breast, Request for cases [id number], [id number] slides to [facility]. 09/15/2024 12:14 PM EDT [employer] [facility] FINAL DIAGNOSIS Results will be scanned in this case as an addendum. 09/15/2024 12:14 PM EDT [facility] at 1338 EST EMBEDDED IMAGES 09/15/2024 12:14 PM EDT [facility] ADDENDUM Refer to Scanned [facility] Report for [id number] & [id number]. 09/15/2024 12:14 PM EDT [facility] Addendum electronically signed by Diane Ellis MD on 09/15/2024 at 1214 EDT Tissue BREAST STRUCTURE / Unknown 09/11/2024 1:13 PM EST 09/11/2024 1:13 PM EST us Beata Kebede MD PATHOLOGY ORDERABLES Edited R esult - Final [facility] 1 [place], [place] [address] documented in this encounter Visit Diagnoses Not on filedocumented in this encounter Additional Health Concerns Infection Onset Date Last Indicated Resolved Time COVID-19 09/04/2024 09/04/2024 09/24/2024 10:1 2 PM EDT Assessment Noted Time PHQ-9 Depression Total Score: 17 024 8:39 AM EST PHQ-2 Depression Total Score: 5 07/07/20 24 8:39 AM EST documented as of this encounter Care Teams Boiler Attendant Relationship Specialty [place] [address] [place] [address] PCP - General 06/21/10 03/08/25 Ayush Marrero MD [address] [place] [address] PCP - General Family Medicine 03/09/25 Arlyn Schmidt MD [address] [place] [address] Consulting Physician Internal Medicine-Endocrinology , Diabetes & Metabolism 11/28/20 Tacho Echavarria MD 1 [place], [place] [id number] Internal Medicine-Medical Oncology 11/12/23 Matt Ulrich MD 1 [place] [address] Surgery-Surgical Oncology 12/04/23 Eze Brock Pastoral Care 12/13/23 Cheryl Nair, RN Oncology Nurse Navigator 03/25/2412/13 Annette Walker, TOASTER ELEMENT REPAIRER Pipe Out Worker 05/13/24 Batool Celis MD 1 [place] [address] Radiation Oncologist Radiology-Radiation Oncology 06/08/24 documented as of this encounter
--- OUTSIDE RECORDS SUMMARY | 2025-06-28 08:40 | XMS_ITS | Encounter Summary ---
Author Organization [place] [address] Care Team Providers Care Install Technician Name Role Phone Chetna Cedeno MD Primary Care Provider [phone] Leslie Cooley PIPE BENDING MACHINE OPERATOR Unavailable Batool Patton METALLURGICAL ENGINEERING TECHNICIAN Unavailable Unavailab Arlyn Disla MD Unavailable [phone] Cheryl Nair RN Unavailable [phone] Tacho Echavarria MD Unavailable [phone] Matt Ulrich MD Unavailable [phone] Hilary Clemens RN Unavailable Unavaila Eze Caro Unavailable Shila Albrecht RN Unavailable Unavail able Cheyanne To RN Unavailable UnavailRayna Johnson RN Unavailable Unavailab Shilpa Olivarez RN Unavailable [phone] Tulio Duong RN Unavailable Unavailable Yaquelin [place] RN Unavailable Unavailable Pam Wang RN Unavailable Unavailable Jazmín Nair RN Unavailable Unavailable Fidel Rainey RN Unavailable Unavailable Cheryl Nair RN Unavailable [phone] Ophelia Lala RN Unavailable Glo Lee RN Unavailable Unavailab Sanam Evans MEATMAN Unavailable Unavailable Hilary Clemens RN Unavailable Unavaila ble [place], Ruthy A RN Unavailable Unavailable Rayna Partida RN Unavailable Unavailab Artur Nelson RN Unavailable Unavailable Annette Walker MEATMAN Unavailable [phone] Emmie Crain RN Unavailable Unavailable Brigida Enriquez RN Unavailable Unavailable Fidel Rainey RN Unavailable Unavailable Batool Celis MD Unavailable [phone] Ayush Marrero MD Primary Care Provider [phone] Encounter Details Date Type Department Care Team (Late st Contact Info) Description 07/12/2015 Orders Only [facility] G[facility] [address] [facility] [address] [place] [address] Stone Cronin MD Social History [...] Info) Description 08/12/2025 10:[address] [facility] Women's Wellness [facility] [place] [facility] [place] [id number] Matt Ulrich MD [address] [place] [address] [address] [place] [address] 09/07/2025 12:45 PM EST Procedure visit [facility] [address] [facility] [address] [place] [address] Samm Ledesma APRN [address] [facility] [address] [place] [address] 09/08/2025 2:15 PM EST Office Visit [place] [id number] [facility] [address] [place] [address] Sin Tran MD [address] [place] [address] documented as of this encounter Procedures Procedure Name Priority Date/Time Associated Diagnosis Comments GMED COLONOSCOPY Routine 07/12/2015 2:30 PM EST documented in this encounter Results * GMED COLONOSCOPY (07/12/2015 2:30 PM EST) 07/12/2015 2:[address] [facility] - 07/12/2015 3:30 [...] ORDERABLES Doris mcmahon Result Performing Organization Address City/State/[facility] Co de Phone Number [facility] [address] [place] [address] documented in this encounter Visit Diagnoses Not [...] documented as of this encounter Care Teams Install Technician Relationship Specialty [place] [address] [place] [address] PCP - General 06/21/10 03/08/25 Ayush Marrero MD [address] [place], [place] [address] PCP - General Family Medicine 03/09/25 eLslie Cooley, PIPE BENDING MACHINE OPERATOR Offal Separator 01/28/19 07/15/19 Batool Myers METALLURGICAL ENGINEERING TECHNICIAN Offal Separator 02/13/19 07/15/19 Arlyn Schmidt MD [address] [place] [address] Consulting Physician Internal Medicine-Endocrinolog y, Diabetes & Metabolism 11/28/20 Cheryl Nair, RN Oncology Nurse Navigator 10/29/2302/05 Tacho Echavarria MD 1 [place] [address] Internal Medicine-Medical Oncology 11/12/23 Matt Ulrich MD 1 [place] [address] Surgery-Surgical Oncology 12/04/23 Hilary Clemens, RN Registered [...] Nurse Infusion Therapy 04/03/24 04/03/24 Sanam Murray, [facility] Offal Separator 04/10/24 07/30/24 Hilary Clemens, RN Registered Nurse Infusion Therapy 04/21/24 04/21/24 Ruthy Walker RN Registered Nurse Infusion Therapy 04/24/24 04/24/24 Rayna Partida, RN Registered Nurse Infusion Clinic 05/01/24 05/01/24 Artur Roberts RN Registered Nurse Infusion Therapy 05/07/24 05/07/24 Annette Walker, MEATMAN Offal Separator 05/13/24 Emmie Crain, RN Registered Nurse Infusion Therapy 05/14/24 05/14/24 Brigida Enriquez, RN Registered Nurse Infusion Clinic 05/21/24 05/21/24 Fidel Rainey, RN Registered Nurse Infusion Therapy 05/28/24 05/28/24 Batool Celis MD [address] [place] [address] [place] [address] Radiation Oncologist Radiology-Radiation Oncology 06/08/24 documented as of this encounter
--- OUTSIDE RECORDS SUMMARY | 2025-06-28 08:40 | XMS_ITS | Encounter Summary ---
Author Organization [facility] Address [facility] [place] [address] Care Team Providers Care Mold Yard Crane Operator Name Role Phone Chetna Cedeno MD Primary Care Provider [phone] Arlyn Schmidt MD Unavailable [phone] Tacho Echavarria MD Unavailable [phone] Matt Ulrich MD Unavailable [phone] Eze Brock Unavailable Cheryl Nair RN Unavailable [phone] Sanam Murray BREAKER OILER Unavailable Unavailable Annette Walker BREAKER OILER Unavailable [phone] Batool Celis MD Unavailable [phone] Ayush Marrero MD Primary Care Provider [phone] Encounter Details Date Type Department Care Team (Late st Contact Info) Description 07/06/2024 Orders Only [facility] [address] [place] [address] Shilpa Tan MD [address] [place] [phone] Social History Tobacco Use Types Packs/Day Years [...] Recorded PHQ-2 Total Score 5 07/07/2024 [facility] [place] of Occupat ional Health - Occupational [...] a skilled nursing (including now)? No 11/07/2023 [facility] IP Transportation Answer [...] Info) Description 08/12/2025 10:40 AM EST Appointment [facility] Women's Wellness [facility] [place] [address] Matt Ulrich MD [address] [place] [address] [address] [place] [id number] 09/07/2025 12:45 PM EST Procedure visit [facility] [address] [facility] [address] [place] [address] Samm Ledesma APRN [address] [facility] [facility] [address] [place], [place] [address] 09/08/2025 2:15 PM EST Office Visit [address] [place] [address] Sin Tran MD [address] [place] [address] documented as of this encounter Goals [...] EST) 07/06/2024 12:5 1 PM EST Narrative [facility] - 09/24/2024 2:57 PM EDT Requesting Provider: MATT Womack Specimen = [id number] us Shilpa Tan MD PATHOLOGY ORDERABLES Final R esult [facility] 1 [place] [address] documented in this encounter Visit Diagnoses Not on filedocumented in this encounter Additional Health Concerns Infection Onset Date Last Indicated Resolved Time COVID-19 09/04/2024 09/04/2024 09/24/2024 10:1 2 PM EDT Assessment Noted Time PHQ-9 Depression Total Score: 12 024 12:00 PM EDT documented as of this encounter Care Teams Mold Yard Crane Operator Relationship Specialty [place] [address] [place] [address] PCP - General 06/21/10 03/08/25 Ayush Marrero MD [address] [place], [place] [address] PCP - General Family Medicine 03/09/25 Arlyn Schmidt MD [address] [place] [address] Consulting Physician Internal Medicine-Endocrinology , Diabetes & Metabolism 11/28/20 Tacho Echavarria MD 1 [place] [address] Internal Medicine-Medical Oncology 11/12/23 Matt Ulrich MD 1 [place] [address] Surgery-Surgical Oncology 12/04/23 Eze Brock Pastoral Care 12/13/23 Cheryl Nair, RN Oncology Nurse Navigator 03/25/2412/13 Sanam Murray MSW Neon Sign Erector 04/10/24 07/30/24 Annette Walker MSW Neon Sign Erector 05/13/24 Batool Celis MD 1 [facility] [place] [address] Radiation Oncologist Radiology-Radiation Oncology 06/08/24 documented as of this encounter
--- OUTSIDE RECORDS SUMMARY | 2025-06-28 08:40 | XMS_ITS ---
Author Organization [facility] Address [facility] [address] [place], [place] [address] Phone Care Team Providers Care Manager Solar Name Role Phone Arlyn Schmidt MD Unavailable [phone] Tacho Echavarria MD Unavailable [phone] Matt Ulrich MD Unavailable [phone] Eze Brock Unavailable Annette Walker SQL DATABASE DEVELOPER Unavailable [phone] Batool Celis MD Unavailable [phone] Ayush Marrero MD Primary Care Provider [phone] Active Problems * This document contains information received from the source organization and may not represent a complete record from that organization. Patient Care Coordination No te Formatting of this note migh t be different from the original. 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 Care Team Medical Oncologist Dr. Tacho Echavarria Surgeon Dr. Matt Ulrich Radiation Oncologist Dr. Batool Celis Primary Care Physician Chetna Cedeno MD Cancer Diagnosis Information Diagnosis date 10/29/23 Diagnosis and Staging information Invasive Ductal Carcinoma, right breast Clinical Stage IIIB (cT3, cN3a(f), M0, G3, ER+, TN+, Her2-) Pathologic Stage y(pT3, pN3a, G3 ER+, TN+, Her2-) Tumor markers Breast: Estrogen Receptor positive (92%) Progesterone Receptor positive (55%) Her-2 negative Background Information/Additional Screening Recommendations Genetics testing Negative ([facility] Cancer 67-gene panel) Tobacco use Nonsmoker. Treatment [...] up to GI tolerance for2 yr planned (Bogard-E regimen) Radiation therapy External beam radiotherapy to a total dose of 60 Gy; 50 Gy to right chest wall and regional lymph nodes including internal mammary + 10 Gy boost to the undissected nodes. Delivered in a total of 30 fractions Endocrine Therapy Arimidex started 10/08/24 + Verzenio. Changed to Aromasin give [facility] Oncology Timeline Oncology History Invasive ductal [...] to GI tolerance for 2 yr planned (Bogard-E regimen) 10/2024 - changed to Aromasin d/t [...] Stage ypT3, ypN3a, G3, ER+, TN+, HER2- Right breast cancer with T3 tumor, [...] General Health Continue follow-up with PCP and OIL EXTRACTOR as directed Recommendations Self-care plan: What you [...] with your body,see your regular doctor, physician family readiness support assistant, or nurse practitioner. If what you [...] Problem Noted Date Diagnosed Date Resolved Date [place] syndrome 12/30/2020 10/16/2021 Assessment & Plan (12/30/2020 12:05 PM EDT): The patient has some features of cortisol excess. I doubt the patient has underlying [place]'s disease. We will proceed with the work-up [...]
--- OUTSIDE RECORDS SUMMARY | 2025-06-28 08:40 | XMS_ITS | Encounter Summary ---
Author Organization [place] [address] Care Team Providers Care Architectural Administrative Assistant Name Role Phone Kit Cedeno MD Primary Care Provider [phone] Arlyn Schmidt MD Unavailable [phone] Cheryl Nair RN Unavailable [phone] Tacho Echavarria MD Unavailable [phone] Matt Ulrich MD Unavailable [phone] Hilary Clemens RN Unavailable Unavaila Eze Caro Unavailable Shila Albrecht RN Unavailable Unavail able Cheyanne To RN Unavailable Unavailabl Rayna Wong RN Unavailable Unavailab Shilpa Olivarez RN Unavailable [phone] Tulio Duong RN Unavailable Unavailable Yaquelin Weaver RN Unavailable Unavailable Pam Wang RN Unavailable Unavailable Jazmín Nair RN Unavailable Unavailable Fidel Rainey RN Unavailable Unavailable Cheryl Nair RN Unavailable [phone] Ophelia Laal RN Unavailable Glo eLe RN Unavailable Unavailab Sanam Evans REAMING MACHINE OPERATOR Unavailable Unavailable Hilary Clemens RN Unavailable Unavaila Ruthy Clayton RN Unavailable Unavailable Rayna Partida RN Unavailable Unavailab Artur Nelson RN Unavailable Unavailable Annette Walker REAMING MACHINE OPERATOR Unavailable [phone] Emmie Crain RN Unavailable Unavailable Brigida Enriquez RN Unavailable Unavailable Fidel Rainey RN Unavailable Unavailable Batool Celis MD Unavailable [phone] Ayush Marrero MD Primary Care Provider [phone] Encounter Details Date Type Department Care Team (Late st Contact Info) Description 10/25/2023 Orders Only [facility] [place] [address] Diane Ellis MD 1 [place] [address] Social History Tobacco Use Types Packs/Day Years [...] Info) Description 08/12/2025 10:40 AM EST Appointment [facility] [place] [address] Matt Ulrich MD [address] [place] [address] [address] [place] [address] 09/07/2025 12:45 PM EST Procedure visit [facility] [address] [facility] [address] [place] [address] Samm Ledesma APRN [address] [facility] [address] [place] [address] 09/08/2025 2:15 PM EST Office Visit [facility] [address] [facility] 401 [facility] 1[address] [place] [address] Sin Tran MD [address] [place] [address] documented as of this encounter Goals [...] EDT) 10/25/2023 10:4 4 AM EDT Narrative [facility] - 11/11/2023 2:42 PM EDT Requesting Provider: KIT Harpermiguel Specimen = [id number] us Diane Ellis MD PATHOLOGY ORDERABLES Final Resul t [facility] [address] [place] [id number] documented in this encounter Visit Diagnoses Not on filedocumented in this encounter Additional Health Concerns Infection Onset Date Last Indicated Resolved Time COVID-19 09/04/2024 09/04/2024 09/24/2024 10:1 2 PM EDT documented as of this encounter Care Teams Architectural Administrative Assistant Relationship Specialty [place] [address] [place] [address] PCP - General 06/21/10 03/08/25 Ayush Marrero MD [address] [place] [address] PCP - General Family Medicine 03/09/25 Arlyn Schmidt MD [address] [place] [address] Consulting Physician Internal Medicine-Endocrinolog y, Diabetes & Metabolism 11/28/20 Cheryl Nair, RN Oncology Nurse Navigator 10/29/2302/05 Tacho Echavarria MD 1 [place] [address] Internal Medicine-Medical Oncology 11/12/23 Matt Ulrich MD 1 [place] [address] Surgery-Surgical Oncology 12/04/23 Hilary Clemens, RN Registered [...] Nurse Infusion Therapy 04/03/24 04/03/24 Sanam Murray, REAMING MACHINE OPERATOR Jammer Hooker 04/10/24 07/30/24 Hilary Clemens, RN Registered Nurse Infusion Therapy 04/21/24 04/21/24 Ruthy Walker, RN Registered Nurse Infusion Therapy 04/24/24 04/24/24 Rayna Partida, RN Registered Nurse Infusion Clinic 05/01/24 05/01/24 Artur Roberts RN Registered Nurse Infusion Therapy 05/07/24 05/07/24 Annette Walker, REAMING MACHINE OPERATOR Jammer Hooker 05/13/24 Emmie Crain, RAUL Registered Nurse Infusion Therapy 05/14/24 05/14/24 Brigida Enriquez, RN Registered Nurse Infusion Clinic 05/21/24 05/21/24 Fidel Rainey, RN Registered Nurse Infusion Therapy 05/28/24 05/28/24 Batool Celis MD [address] [place] [address] [place] [address] Radiation Oncologist Radiology-Radiation Oncology 06/08/24 documented as of this encounter
--- OUTSIDE RECORDS SUMMARY | 2025-06-28 08:40 | XMS_ITS | Encounter Summary ---
Author Organization [place] [address] Care Team Providers Care Waybill Clerk Name Role Phone Kit Cedeno MD Primary Care Provider [phone] Arlny Schmidt MD Unavailable [phone] Cheryl Nair RN Unavailable [phone] Tacho Echavarria MD Unavailable [phone] Matt Ulrich MD Unavailable [phone] Hilary Clemens RN Unavailable Unavaila Eze Caro Unavailable Shila Albrecht RN Unavailable Unavail able Cheyanne To RN Unavailable Unavailabl Rayna Wong RN Unavailable Unavailab Shilpa Olivarez RN Unavailable [phone] Tulio Duong RN Unavailable Unavailable Yaquelin Weaver RN Unavailable Unavailable Pam Wang RN Unavailable Unavailable Jazmín Nair RN Unavailable Unavailable Fidel Rainey RN Unavailable Unavailable Cheryl Nair RN Unavailable [phone] Ophelia Lala RN Unavailable Glo Lee RN Unavailable Unavailab Sanam Evans AIRLINE RESERVATIONIST Unavailable Unavailable Hilary Clemens RN Unavailable Unavaila Ruthy Clayton RN Unavailable Unavailable Rayna Partida RN Unavailable Unavailab Artur Nelson RN Unavailable Unavailable Annette Walker AIRLINE RESERVATIONIST Unavailable [phone] Emmie Crain RN Unavailable Unavailable Brigida Enriquez RN Unavailable Unavailable Fidel Rainey RN Unavailable Unavailable Batool Celis MD Unavailable [phone] Ayush Marrero MD Primary Care Provider [phone] Encounter Details Date Type Department Care Team (Late st Contact Info) Description 10/25/2023 Orders Only [facility] [place] [address] Diane Ellis MD 1 [place] [address] Social History Tobacco Use Types Packs/Day Years [...] Info) Description 08/12/2025 10:40 AM EST Appointment [facility] [place] [address] Matt Ulrich MD [address] [place] [address] [address] [place] [address] 09/07/2025 12:45 PM EST Procedure visit [facility] [address] [facility] [address] [place] [address] Samm Ledesma APRN [address] [facility] [address] [place] [address] 09/08/2025 2:15 PM EST Office Visit [facility] 4900 [facility] 401 [facility] 1D [place] [address] Sin Tran MD [address] [place] [address] documented as of this encounter Goals [...] 10:4 4 AM EDT Narrative [facility] - 11/11/2023 7:42 AM EDT Requesting Provider: KIT Harpermiguel Specimen = [id number] us Diane Ellis MD PATHOLOGY ORDERABLES Final Resul t [facility] [address] [place] [address] documented in this encounter Visit Diagnoses Not on filedocumented in this encounter Additional Health Concerns Infection Onset Date Last Indicated Resolved Time COVID-19 09/04/2024 09/04/2024 09/24/2024 10:1 2 PM EDT documented as of this encounter Care Teams Waybill Clerk Relationship Specialty [place] [address] [place] [address] PCP - General 06/21/10 03/08/25 Ayush Marrero MD [address] [place] [address] PCP - General Family Medicine 03/09/25 Arlyn Schmidt MD [address] [place] [address] Consulting Physician Internal Medicine-Endocrinolog y, Diabetes & Metabolism 11/28/20 Cheryl Nair, RN Oncology Nurse Navigator 10/29/2302/05 Tacho Echavarria MD 1 [place] [address] Internal Medicine-Medical Oncology 11/12/23 Matt Ulrich MD 1 [place] [address] Surgery-Surgical Oncology 12/04/23 Hilary Clemens, RN Registered [...] Registered Nurse Infusion Therapy 02/27/24 02/27/24 Fidel aRiney, RN Registered Nurse Infusion Therapy 03/05/24 03/05/24 Cheryl Nair, RN Oncology Nurse Navigator 03/25/2412/13 Ophelia Lala, RAUL Registered Nurse Infusion Therapy 03/27/24 03/27/24 Glo Lee, RN Registered Nurse Infusion Therapy 04/03/24 04/03/24 Sanam Murray, AIRLINE RESERVATIONIST Interior Systems Carpenter 04/10/24 07/30/24 Hilary Clemens, RN Registered Nurse Infusion Therapy 04/21/24 04/21/24 Ruthy Walker RN Registered Nurse Infusion Therapy 04/24/24 04/24/24 Rayna Partida, RN Registered Nurse Infusion Clinic 05/01/24 05/01/24 Artur Roberts RN Registered Nurse Infusion Therapy 05/07/24 05/07/24 Annette Walker, AIRLINE RESERVATIONIST Interior Systems Carpenter 05/13/24 Emmie Crain, RN Registered Nurse Infusion Therapy 05/14/24 05/14/24 Brigida Enriquez, RN Registered Nurse Infusion Clinic 05/21/24 05/21/24 Fidel Rainey, RN Registered Nurse Infusion Therapy 05/28/24 05/28/24 Batool Celis MD [address] [place] [address] [place] [address] Radiation Oncologist Radiology-Radiation Oncology 06/08/24 documented as of this encounter
--- OUTSIDE RECORDS SUMMARY | 2025-06-28 08:40 | XMS_ITS | Clinical Summary ---
Author Organization [facility] Address [address] [place] [address] Phone Care Team Providers Care Principal Trainer Name Role Phone Chetna Cedeno MD Primary Care Provider [phone] Allergies Active Allergy Reactions Criticality Noted Date [...] patient's age to complete this topic Insurance [facility] MEDICAID Care Teams Principal Trainer Relationship Specialty Start Date End Date Chetna Cedeno MD [facility] [address] [place] [address] PCP - General Family Medicine 01/02/25
--- OUTSIDE RECORDS SUMMARY | 2025-06-28 08:41 | XMS_ITS | Encounter Summary ---
Author Organization [place] [address] Care Team Providers Care Shucker Name Role Phone Arlyn Schmidt MD Unavailable [phone] Tacho Echavarria MD Unavailable [phone] Matt Ulrich MD Unavailable [phone] Eze Brock Unavailable Annette Walker Unavailable [phone] Batool Celis MD Unavailable [phone] Ayush Marrero MD Primary Care Provider [phone] Reason for Visit * Reason Onset Date Comments Prior Authorization 05/28/2025 Encounter Details Date Type Department Care Team (Late st Contact Info) Description 05/28/2025 Telephone [facility] [place] [facility] [address] [place] [address] Yonatan Babcock MD [address] [place] [place] [address] Prior Authorization Social History Tobacco [...] [facility] [...] in a prison (including now)? No 11/07[facility]2023 [facility] Answer [...] 9:15 AM EST Received PA request for [facility] [id number] documented in this encounter Plan of Treatment Upcoming Encounters Date Type Department Care Team (Late st Contact Info) Description 08/12/2025 10:40 AM EST Appointment [facility] Women's Wellness [facility] [place] [address] Matt Ulrich MD [address] [place] [address] [address] [place] [address] 09/07/2025 12:45 PM EST Procedure visit [facility] [address] [facility] [address] [place] [address] Samm Ledesma APRN [address] [facility] [address] [place] [address] 09/08/2025 2:15 PM EST Office Visit [facility] Sarah [address] [place] [address] Sin Tran MD [facility] [place] [address] documented as of this encounter Goals Goal Patient Goal Type Associated Problems Recent Progress Patient-Stated? Author Blood Pressure < 140/90 Blood Pressure 148/95(05/19 2:34 PM EST) No Chetna Cedeno MD [facility] [...] documented as of this encounter Care Teams Shucker Relationship Specialty Start Date End Date Ayush Marrero MD [address] [place] [address] PCP - General Family Medicine 03/09/25 Arlyn Schmidt MD [address] [place] [address] Consulting Physician Internal Medicine-Endocrinology, Diabetes & Metabolism 11/28/20 Tacho Echavarria MD 1 [place] [address] Internal Medicine-Medical Oncology 11/12/23 Matt Ulrich MD 1 [place] [address] Surgery-Surgical Oncology 12/04/23 Eze Brock Pastoral Care 12/13/23 Annette Walker, CERTIFIED ANESTHESIOLOGIST ASSISTANT Manager Wind 05/13/24 Batool Celis MD 1 [facility] [place] [address] Radiation Oncologist Radiology-Radiation Oncology 06/08/24 documented as of this encounter
--- OUTSIDE RECORDS SUMMARY | 2025-06-28 08:41 | XMS_ITS | Encounter Summary ---
Author Organization [place] [address] Care Team Providers Care Automatic Door Mechanic Name Role Phone Chetna Cedeno MD Primary Care Provider [phone] Arlyn Schmidt MD Unavailable [phone] Tacho Echavarria MD Unavailable [phone] Matt Ulrich MD Unavailable [phone] Eze Brock Unavailable Shilpa Cline RN Unavailable [phone] Cheryl Nair RN Unavailable [phone] Ophelia Lala RN Unavailable Glo Lee RN Unavailable Unavailab Sanam Evans ENTERPRISE ARCHITECT Unavailable Unavailable Hilary Clemens RN Unavailable Unavaila Ruthy Clayton RN Unavailable Unavailable Rayna Partida RN Unavailable Unavailab Artur Nelson RN Unavailable Unavailable Annette Walker ENTERPRISE ARCHITECT Unavailable [phone] Emmie Crain RN Unavailable Unavailable Brigida Enriquez RN Unavailable Unavailable Fidel Rainey RN Unavailable Unavailable Batool Celis MD Unavailable [phone] Ayush Marrero MD Primary Care Provider [phone] Encounter Details Date Type Department Care Team (Late st Contact Info) Description 03/18/2024 Lab Requisition [facility] [place] [address] Provider, Unknown Malignant neoplasm of unspecified site [...] Date Recorded PHQ-2 Total Score 0 11/07/2023 [facility] - [...] Info) Description 08/12/2025 10:40 AM EST Appointment [facility] Women's Wellness [place] [facility] [address] [place] [id number] Matt Ulrich MD [address] [place] [address] [address] [place] [address] 09/07/2025 12:45 PM EST Procedure visit [facility] [address] [facility] [address] [place] [address] Samm Ledesma APRN [address] [facility] [address] [place] [address] 09/08/2025 2:15 PM EST Office Visit [address] [place] [address] Sin Tran MD [address] [place] [address] documented as of this encounter Goals [...] EDT) CASE REPORT Surgical Pathology Report Case: [id number] Authorizing Provider: Provider, Unknown Collected: 03/18/2024 1327 Ordering Location: [facility] Received: 03/18/2024 1327 Pathologist: Diane Ellis MD Specimen: Breast, Right, Request for case [id number] slides to [facility]. 05/04/2024 1:[address] [facility] FINAL DIAGNOSIS Results will be scanned in this case as an addendum. 05/04/2024 1:26 PM EDT [facility] at 1329 EDT EMBEDDED IMAGES 05/04/2024 1:26 PM EDT [facility] ADDENDUM Refer to Scanned [facility] Surgical Pathology Report. 05/04/2024 1:26 PM EDT [facility] Addendum electronically signed by Diane Ellis MD on 05/04/2024 at 1326 EDT Tissue RIGHT BREAST STRUCTURE / Unknown 03/18/2024 1:27 PM EDT 03/18/2024 1:27 PM EDT us Unknown Provider PATHOLOGY ORDERABLES Edited Res ult - Final [facility] 1 [place] [address] documented in this encounter Visit Diagnoses Diagnosis Malignant neoplasm of unspecified site of right female breast (HCC) documented in this encounter Additional Health Concerns Infection Onset Date Last Indicated Resolved Time COVID-19 09/04/2024 09/04/2024 09/24/2024 10:1 2 PM EDT Assessment Noted Time PHQ-9 Depression Total Score: 12 024 12:00 PM EDT documented as of this encounter Care Teams Automatic Door Mechanic Relationship Specialty [place] [address] [place] [address] PCP - General 06/21/10 03/08/25 Ayush Marrero MD [address] [place] [address] PCP - General Family Medicine 03/09/25 Arlyn Schmidt MD [address] [place] [address] Consulting Physician Internal Medicine-Endocrinolog y, Diabetes & Metabolism 11/28/20 Tacho Echavarria MD 1 [place], [place] [id number] Internal Medicine-Medical Oncology 11/12/23 Matt Ulrich MD 1 [place] [address] Surgery-Surgical Oncology 12/04/23 Eze Brock Pastoral Care 12/13/23 Shilpa Cline, RN Oncology Nurse Navigator 02/04/2403/09 Cheryl Nair, RN Oncology Nurse Navigator 03/25/2412/13 Ophelia Lala, RN Registered Nurse Infusion Therapy 03/27/24 03/27/24 Glo Lee, RN Registered Nurse Infusion Therapy 04/03/24 04/03/24 Sanam Murray MSW Blast Furnace Keeper 04/10/24 07/30/24 Hilary Clemens, RAUL Registered Nurse Infusion Therapy 04/21/24 04/21/24 Ruthy Walker, RN Registered Nurse Infusion Therapy 04/24/24 04/24/24 Rayna Partida, RN Registered Nurse Infusion Clinic 05/01/24 05/01/24 Artur Roberts RN Registered Nurse Infusion Therapy 05/07/24 05/07/24 Aaron Annette, [facility] Blast Furnace Keeper 05/13/24 Emmie Crain, RAUL Registered Nurse Infusion Therapy 05/14/24 05/14/24 Brigida Enriquez, RAUL Registered Nurse Infusion Clinic 05/21/24 05/21/24 Fidel Rainey, RN Registered Nurse Infusion Therapy 05/28/24 05/28/24 Batool Celis MD [address] [place] [address] [place] [address] Radiation Oncologist Radiology-Radiation Oncology 06/08/24 documented as of this encounter
--- OUTSIDE RECORDS SUMMARY | 2025-06-28 08:41 | XMS_ITS | Encounter Summary ---
Author Organization [place] [address] Care Team Providers Care Ecological Modeler Name Role Phone Arlyn Schmidt MD Unavailable [phone] Tacho Echavarria MD Unavailable [phone] Matt Ulrich MD Unavailable [phone] Eze Brock Unavailable Annette Walker Unavailable [phone] Batool Celis MD Unavailable [phone] Ayush Marrero MD Primary Care Provider [phone] Reason for Visit * Reason Comments Pharmacy Migraine Medication Management Qulipta Encounter Details Date Type Department Care Team (Latest Contact Info) Description 04/23/2025 Specialty Pharmacy [facility] [address] [place] [address] Annamarie Mark, Tim Pharmacy Migraine Medication Management (Qulipta) Social History [...] Recorded In the past 12 months has [employer], or [employer] threatened to shut off services in [...] a long term (including now)? No 11/07/2023 [facility] IP Transportation Answer D ate [...] Contacted Meri Cole today regarding refills of Qulipta. Copay amount: $0 No answer, unable to leave voicemail. mailbox not set up * Annamarie Mark CPhT - 04/23/2025 2:13 PM EDT Specialty Pharmacy Refill Coordination Note Contacted Meri Cole today regarding refills of Qulipta. Copay amount: $0 No answer, unable to leave voicemail. vcm not set up; home disconnected * Aretha Prabhakar CPhT - 04/23/2025 2:13 PM EDT Specialty Pharmacy Refill Coordination Note Contacted Meri Cole today regarding refills of Qulipta and Nurtec. Copay amount: $0.00. Sent [employer] message. Patient informed of copay. * Annamarie Mark CPhT - 04/23/2025 2:13 PM EDT Specialty Pharmacy Refill Coordination Note Contacted Meri Cloe today regarding refills of Qulipta. Copay amount: $0 No answer, unable to leave voicemail. mailbox not set up * Aaliyah Decker CPhT - 04/23/2025 2:13 PM EDT Specialty Pharmacy Refill Coordination Note Contacted Meri Cole today regarding refills of Qulipta. Copay amount: $0 Sent [employer] message. Patient informed of copay. * Annamarie Mark CPhT - 04/23/2025 2:13 PM EDT [facility] Qulipta & Nurtec were transferred to [facility] in [place], [place] 05/25/25 disenrolled patient from [facility] documented in this encounter Plan of Treatment Upcoming Encounters Date Type Department Care Team (Late st Contact Info) Description 08/12/2025 10:40 AM EST Appointment [facility] Women's Wellness [facility] [address] [place] [id number] Matt Ulrich MD [address] [place] [address] [address] [place] [address] 09/07/2025 12:45 PM EST Procedure visit [facility] [address] [facility] [address] [place] [address] Samm Ledesma APRN [address] [facility] [address] [place] [address] 09/08/2025 2:15 PM EST Office Visit [facility] [address] [facility] [address] [place] [address] Sin Tran MD [address] [place] [address] documented as of this encounter Goals [...] documented as of this encounter Care Teams Ecological Modeler Relationship Specialty Start Date End Date Ayush Marrero MD [address] [place] [address] PCP - General Family Medicine 03/09/25 Arlyn Schmidt MD [address] [place] [address] Consulting Physician Internal Medicine-Endocrinology, Diabetes & Metabolism 11/28/20 Tacho Echavarria MD [address] [place] [address] Internal Medicine-Medical Oncology 11/12/23 Matt Ulrich MD 1 [place] [address] Surgery-Surgical Oncology 12/04/23 Eze Brock Pastoral Care 12/13/23 Annette Walker, CONTINUOUS WASHER OPERATOR Forestry Farm Laborer 05/13/24 Batool Celis MD 1 [facility] [place] [address] Radiation Oncologist Radiology-Radiation Oncology 06/08/24 documented as of this encounter
--- OUTSIDE RECORDS SUMMARY | 2025-06-28 08:41 | XMS_ITS | Encounter Summary ---
Author [place] [address] Care Team Providers Care Life Specialist Name Role Phone Kit Cedeno MD Primary Care Provider [phone] Arlyn Schmidt MD Unavailable [phone] Cheryl Nair RN Unavailable [phone] Tacho Echavarria MD Unavailable [phone] Matt Ulrich MD Unavailable [phone] Hilary Clemens RN Unavailable Unavaila Eze Caro Unavailable Shila Albrecht RN Unavailable Unavail able Cheyanne To RN Unavailable Unavailabl Rayna Wong RN Unavailable Unavailab Shilpa Olivarez RN Unavailable [phone] Tulio Duong RN Unavailable Unavailable Yaquelin Weaver RN Unavailable Unavailable Pam Wang RN Unavailable Unavailable Jazmín Nair RN Unavailable Unavailable Fidel Rainey RN Unavailable Unavailable Cheryl Nair RN Unavailable [phone] Ophelia Lala RN Unavailable Glo Lee RN Unavailable Unavailab Sanam Evans TOTER Unavailable Unavailable Hilary Clemens RN Unavailable Unavaila Ruthy Clayton RN Unavailable Unavailable Rayna Partida RN Unavailable Unavailab Artur Nelson RN Unavailable Unavailable Annette Walker TOTER Unavailable [phone] Emmie Crain RN Unavailable Unavailable Brigida Enriquez RN Unavailable Unavailable Fidel Rainey RN Unavailable Unavailable Batool Celis MD Unavailable [phone] Ayush Marrero MD Primary Care Provider [phone] Encounter Details Date Type Department Care Team (Late st Contact Info) Description 10/25/2023 Orders Only [facility] [address] [facility] [place] [address] Diane Ellis MD 1 [place] [address] Social History Tobacco Use Types Packs/Day Years [...] AM EST Appointment [facility] [place] [address] Matt Ulrich MD [address] [place] [address] [address] [place] [address] 09/07/2025 12:45 PM EST Procedure visit [facility] [address] [facility] [address] [place] [address] Samm Ledesma APRN [address] [facility] [address] [place] [address] 09/08/2025 2:15 PM EST Office Visit [facility] [address] [facility] [address] [facility] [address] [place] [address] Sin Tran MD [address] [place] [address] documented as of this encounter Goals [...] 10:4 4 AM EDT Narrative [facility] - 11/01/2023 3:02 PM EDT Requesting Provider: KIT Harpermiguel Specimen = [id number] us Diane Ellis MD PATHOLOGY ORDERABLES Final Resul t [facility] 1 [place] [address] documented in this encounter Visit Diagnoses Not on filedocumented in this encounter Additional Health Concerns Infection Onset Date Last Indicated Resolved Time COVID-19 09/04/2024 09/04/2024 09/24/2024 10:1 2 PM EDT documented as of this encounter Care Teams Life Specialist Relationship Specialty [place] [address] [place] [address] PCP - General 06/21/10 03/08/25 Ayush Marrero MD [address] [place] [address] PCP - General Family Medicine 03/09/25 Arlyn Schmidt MD [address] [place] [address] Consulting Physician Internal Medicine-Endocrinolog y, Diabetes & Metabolism 11/28/20 Cheryl Nair, RN Oncology Nurse Navigator 10/29/2302/05 Tacho Echavarria MD 1 [place] [address] Internal Medicine-Medical Oncology 11/12/23 Matt Ulrich MD 1 [place] [address] Surgery-Surgical Oncology 12/04/23 Hilary Clemens, RN Registered [...] Nurse Infusion Therapy 04/03/24 04/03/24 Sanam Murray, TOTER Ore Crushing Dust Collector 04/10/24 07/30/24 Hilary Clemens, RN Registered Nurse Infusion Therapy 04/21/24 04/21/24 Ruthy Walker RN Registered Nurse Infusion Therapy 04/24/24 04/24/24 Rayna Partida, RN Registered Nurse Infusion Clinic 05/01/24 05/01/24 Artur Roberts RN Registered Nurse Infusion Therapy 05/07/24 05/07/24 Annette Walker, TOTER Ore Crushing Dust Collector 05/13/24 Emmie Crain, RN Registered Nurse Infusion Therapy 05/14/24 05/14/24 Brigida Enriquez, RN Registered Nurse Infusion Clinic 05/21/24 05/21/24 Fidel Rainey, RN Registered Nurse Infusion Therapy 05/28/24 05/28/24 Batool Celis MD [address] [place] [address] [place] [address] Radiation Oncologist Radiology-Radiation Oncology 06/08/24 documented as of this encounter
--- OUTSIDE RECORDS SUMMARY | 2025-06-28 08:42 | XMS_ITS | Encounter Summary ---
Author [place] [address] Care Team Providers Care Trim Stencil Maker Name Role Phone Arlyn Schmidt MD Unavailable [phone] Tacho Echavarria MD Unavailable [phone] Matt Ulrich MD Unavailable [phone] Eze Brock Unavailable Annette Walker MANAGER GROCERY Unavailable [phone] Batool Celis MD Unavailable [phone] Ayush Marrero MD Primary Care Provider [phone] Reason for Referral * Consultation (Routine) - Authorization Not Needed Specialty Diagnoses / Procedures Referred By Contac t Referred To Contact Diagnoses Chronic migraine without aura, intractable, with status migrainosus Paresthesia Pituitary lesion Procedures [place] OFFICE/OUTPATIENT NEW MODERATE MDM 45 MINUTES Samm Ledesma, SPRAY MACHINE TENDER [address] [facility] [address] [place] [address] Phone: tel: fax: [facility] [address] [address] Phone: tel: fax: Referral ID Status Reason Start Date Expiration Date Visits Requested Visits Authorized [id number] Authorization Not Needed Continuity of Care 05/25/20 25 05/25/2026 99 99 Scheduling Instructions Needs neur closer to new home Comments Transfer of Care Reason for Visit * Reason Onset Date Comments Referral 05/25/2025 Transfer of care Encounter Details Date Type Department Care Team (Late st Contact Info) Description 05/25/2025 Telephone SEP Neurology [facility] [address] [place] [address] Samm Ledesma APRN [address] [facility] [address] [place] [address] Referral (Transfer of care) Social [...] Recorded In the past 12 months has [email or web address] electric, gas, oil, or water company threatened [...] Date Recorded PHQ-2 Total Score 5 07/07/2024 [facility] Occup[facility] ional [facility] - Occupational Stress Questionnaire Answer [...] a assisted (including now)? No 11/07/2023 [facility] [...] 1:17 PM EST Received incoming call from [facility]. The patient requests transfer of care to neurology dept at [facility] as she now lives 1.5 hours away from our location. They state the the patient will be scheduled with Dr. Pearson at [facility] Neurology. The fax number for [facility] Neurology is [phone]. They also provided us with the patient's [...] Info) Description 08/12/2025 10:40 AM EST Appointment [facility] [place] [address] Matt Ulrich MD [address] [place] [address] [address] [place] [id number] 09/07/2025 12:45 PM EST Procedure visit [facility] [address] [facility] [address] [place] [address] Samm Ledesma APRN [address] [facility] [address] [place] [address] 09/08/2025 2:15 PM EST Office Visit [facility] [address] [place] [address] [address] [place] [address] Sin Tran MD [address] [place] [address] Scheduled Referrals Name Type Priority Associated Diagnoses Orde r Schedule AMB REFERRAL TO NEUROLOGY Outpatient Referral Routine Chronic migraine without aura, intractable, with status migrainosus Paresthesia Pituitary lesion Ordered: 05/25/2025 documented as of this encounter Goals Goal Patient Goal Type Associated Problems Recent Progress Patient-Stated? Author Blood Pressure < 140/90 Blood Pressure 148/95(05/19 2:34 PM EST) No Chetna Cedeno MD Breast [facility] Breast Health On track(2024 11:27 AM EDT) No Jasmin Porter, RAUL Note: Patient acknowledges understanding of new diagnosis, plan of care, available resources and how to contact Nurse Navigator with any future questions or concerns. Breast [facility] Breast Health Not on track(2024 [...] documented as of this encounter Care Teams Trim Stencil Maker Relationship Specialty Start Date End Date Ayush Marrero MD [address] [place] [address] PCP - General Family Medicine 03/09/25 Arlyn Schmidt MD [address] [place], [place] [address] Consulting Physician Internal Medicine-Endocrinology, Diabetes & Metabolism 11/28/20 Tacho Echavarria MD 1 [place], [place] [address] Internal Medicine-Medical Oncology 11/12/23 Matt Ulrich MD 1 [place], [place] [address] Surgery-Surgical Oncology 12/04/23 Eze Brock Pastoral Care 12/13/23 Annette Walker, MANAGER GROCERY Supervisor Hanging And Trimming 05/13/24 Batool Celis MD 1 [facility] [place] [address] Radiation Oncologist Radiology-Radiation Oncology 06/08/24 documented as of this encounter
--- NOTE | 2025-06-28 08:45 | CT_ITS ---
FINAL REPORT TECHNIQUE: After the administration of intravenous contrast, axial images were obtained through the abdomen and pelvis by computed tomography. This study was performed with technique to keep radiation doses as low as reasonably achievable, (ALARA). Individualized dose reduction techniques using automated exposure control or adjustment of the MA and/or KV according to the patient's size were employed. CLINICAL HISTORY: Breast cancer COMPARISON: 03/01/2025 FINDINGS: Abdomen: There are postoperative changes of cholecystectomy and gastric sleeve. The liver is normal in size and attenuation. The spleen is unremarkable. The adrenals are normal. The pancreas is unremarkable. The kidneys enhance appropriately. The aorta is normal in caliber. There is no free fluid or adenopathy. Pelvis: The appendix is not identified. Fecal impaction is noted. Uterus and ovaries are unremarkable. The urinary bladder is unremarkable. There is no free fluid or adenopathy. IMPRESSION: No evidence of metastatic disease. Fecal impaction. Reviewed, Interpreted and Dictated by Abi Sotelo MD Transcribed by Araceli Craven Authenticated and . [facility]
--- NOTE | 2025-06-28 08:45 | CT_ITS ---
FINAL REPORT TECHNIQUE: After the administration of intravenous contrast, axial images through the chest were performed by computed tomography.This study was performed with techniques to keep radiation doses as low as reasonably achievable, (ALARA). Individualized dose reduction techniques using automated exposure control or adjustment of mA and/or kV according to the patient''s size were employed. CLINICAL HISTORY: Breast cancer COMPARISON: 03/01/2025 FINDINGS: The heart size is normal. There is no pericardial or pleural effusion. There are improved patchy densities at the right lung apex likely related to pneumonia or posttreatment change. There is no suspicious pulmonary nodule. There is resolved left infraclavicular adenopathy and prevascular adenopathy. Largest residual lymph node is at 9 mm, previously measured 21 mm. This is best seen on image #18. There is no new adenopathy. There are surgical changes of right mastectomy. Right lateral chest wall nodules are seen measuring up to 9 mm which are unchanged. IMPRESSION: 1. Significant improvement of mediastinal adenopathy. 2. Near complete resolution of right upper lobe opacities, presumed inflammatory. 3. Right lateral chest wall nodularity, stable. Reviewed, Interpreted and Dictated by Abi Sotelo MD Transcribed by Araceli Craven Authenticated and [facility]
[2025-06-28] MEDS: SODIUM CHLORIDE 0.9% 10ML SYR (RAD ONLY) 10 ML IV (09:04)
[2025-06-28] MEDS: IOPAMIDOL-370 (76%);100ML BOTTLE 75 ML IV (09:04)
== END 2025-06-28 23:59 | disposition home or self-care (01) ==
LOC: RAD 08:38 → INF 09:04
PROVIDERS: PCP Family Medicine; Visit Provider Internal Medicine Medical Oncology
DX: D05.11 Intraductal carcinoma in situ of right breast (principal)
CPT/HCPCS: 71260; 74177; J1642; Q9967

== ENCOUNTER 2025-06-29 11:56 | Outpatient (CLI) | payer MEDICAID, SELFPAY ==
--- OUTSIDE RECORDS SUMMARY | 2025-06-29 11:59 | XMS_ITS | Data Portability ---
Author Organization [facility] Address [address] [place] [address] Care Team Providers Care Business Objects Report Developer Name Role Phone ONCOLOGY - [facility] Referring Provider Assessment Encounter Date Assessment Date Assessment LastModified by Organization Details LastModified Time 02/08/2025 02/08/2025 -Medications were reviewed and any necessary updates and renewals were made, patient instructed to complete as prescribed. -The potential side effects of medications were discussed. -Counseling was done on care goals and ways to prevent future hospitalizatio ns. -Further treatment per orders listed below. [email or web address] Not available 02/08/2025 10:56:05 Plan of Treatment Reminders Order Date Submit Date Provider Last Modified By Organization Details Last Modified Time Details Appointments None recorded. Lab vitamin D, 25-hydroxy, total, serum 2024 025 REDD [facility], [address], [place] [address], [place], [address], 08:09:18 Referral endocrinolo gy referral - NURSE PRIVATE DUTY to our office, seen by [facility] last week. 2024 025 REDD Not available 23:07:15 cardiologis t referral - needs with dr pj duran pt 2024 025 REDD Davies MD, [address], [place], [address], 08:13:12 Procedures None recorded. Surgeries None recorded. Imaging None recorded. Medication Orders None recorded. Patient TargetsNo targets recorded. Patient InstructionsNo instructions recorded. 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 last week. Referring Physician: Julien Alejandre, [facility] Medicine, Encounter Date: 02/08/2025 Results Created [...] Endoc rine Socie ty went on to [facility] er defin e vitam in D insuf ficie ncy as a level betwe en 21 and 29 ng/mL (2). 1. IOM (Inst itute of Medic ine). 2009. Dieta ry refer ence intak es for calci um and D. Kassi goss [place]: [facility] . 2. Pia samayoa [place], Rachid bush [place], Vale off-F errar i [place]BL[place], et al. Evalu ation , treat ment, and preve ntion of vitam in D defic iency : an Endoc rine Socie ty clini zeus pract ice guide line. JCEM. 2010; 96(7) :1911 -30. Not Available [facility] ([facility]) [address], [place], [address], 02/09/2025 08:09:18 02/13/20 25 01/27/2024 MAMMO , [...] Organization Details Recorded Time Chronic back pain 589318890 Active Macarena High null, [place] - [facility] 12:02:10 Malignant neoplasm of breast 309858028 Active 2023 Macarena High [place], [place] - [facility] 12:01:43 Vitamin D deficiency 79789811 Active 2024 Mirthapreeti Zavala null, [place] - [facility] 10:50:34 Acute pulmonary embolism 531592392 Active 2024 Julien Alejandre, BRUISE TRIMMER [address], [place], [address] , [place] - [facility] 5 15:43:30 Chronic depression 429304498 Active 2024 Julien Alejandre, BRUISE TRIMMER [address], [place], [address] , [place] - [facility] 5 15:43:49 Migraine with persistent visual aura 071513650 Active 2024 Julien Alejandre, BRUISE TRIMMER [address], [place], [address] , [place] - [facility] 5 15:44:49 Restless legs syndrome 43444586 Active 2024 Julien Alejandre, BRUISE TRIMMER [address], [place], [address] , [place] - [facility] 5 15:44:51 Urinary incontinence 474292193 Active 2024 Julien Alejandre, BRUISE TRIMMER [address], [place], [address] , [place] - [facility] 5 15:44:52 Irritable bowel syndrome 14159929 Active 2024 Mirtha Zavala null, [place] - [...] Name and Address Organization Details Recorded Time 230958 amoxicill in medicatio n rash Not available high 02/08/2025 723 RxNorm Macarena Anilaharsh eng, [place] - [facility] 09:29:12 828160 cefazolin medicatio n rash Not available high 02/08/2025 2180 RxNorm Macarena High velasquez, [place] - [facility] 09:50:27 088525 hydrocodo ne Not available rash Not available high 02/08/2025 5489 [facility] Macarena Mosqudeaharsh eng, [place] - [facility] 09:53:21 399264 varicella zoster immune globulin (human) medicatio n rash Not available high 02/08/2025 09396 6 [facility] Macarena High velasquez, [place] - [facility] 09:54:03 899979 methocarb les medicatio n diarrhea Not available high 02/08/2025 6845 RxNorm Macarena eng, [place] - [facility] 5 09:54:51 092480 tree nut food Not available Not available high 02/08/2025 Macarena eng, [place] - [facility] 5 09:55:06 012068 lactose food,medi cation Not available Not available high 02/08/2025 6211 RxNorm Macarena eng, [place] - [facility] 5 09:55:15 935258 sumatript an medicatio n rash Not available high 02/08/2025 65823 RxNorm Macarena High null, [place] - [facility] 5 09:55:36 105365 morphine medicatio n rash Not available [facility] 02/08/2025 7052 RxNorm Macarena eng, [place] - [facility] 5 09:56:02 318449 adhesive tape environme nt,medica tion rash Not available high 02/08/2025 Macarena eng, [place] - [facility] 5 09:56:32 019365 silver medicatio n rash Not available high 02/08/2025 54237 43 RxNorm Macarena eng, [place] - [facility] 5 09:56:51 674399 zoster vaccine live Not available rash Not [...] Updated DateTime 5 160.02 cm 33.7 kg/m2 75082.5 5 g 97.2 [degF] 97 /min 98 [...] Or The Highest Degree You Have Received? [id number] Information not available 02/08/2025 Have There Been Any Changes To Your Family Or Social Situation? Yes Moved, Disabled Information not available 02/08/2025 Have You Recently Or Are You Planning To Travel To An Area With Zika Virus? No Information not available 02/08/2025 Do You Have A Medical Power Of Analytics Leader? No Information not available 02/08/2025 What Was [...] anxious, or unable to sleep at night)? [id number] Information not available 02/08/2025 Do you have difficulty concentrating, remembering or making decisions? No Information no t available 02/08/2025 Family History Relationship Description Onset Age of this Age Resolved Age Notes LastModified by Organization Details LastModified Time Son Diabetes mellitus [email or web address] Not available 2024 09:09:52 Medical History Condition Response Breast Cancer Y Depression Y Anxiety Disorder Y Obesity Y Blood clot Y Headaches Y Diabetes Y Degenerative Disc Disease Y Neuropathy Y Hypertension Y Gynecological History Statement/Question Response Menses Monthly N LMP Unknown Obstetrics History GPAL:G 0 P 0 0 0 0 Immunizations Vaccine Type Date Status Note Provider Nam e and Address Organization Details Recorded Time Influenza, recombinant, quadrivalent, PF 9 completed Not Available [facility] 02/08/2025 09:06:23 zoster recombinant 0 completed Not Available [facility] 02/08/2025 09:06:23 COVID-19, mRNA, LNP-S, PF, 30 mcg/0.3 mL dose 1 completed Not Available [facility] 02/08/2025 09:06:23 COVID-19, mRNA, LNP-S, PF, 30 mcg/0.3 mL dose 1 completed Not Available [facility] 02/08/2025 09:06:23 COVID-19, mRNA, LNP-S, PF, 30 mcg/0.3 mL dose 1 completed Not Available [facility] 02/08/2025 09:06:23 Influenza, recombinant, quadrivalent, PF 1 completed Not Available [facility] 02/08/2025 09:06:23 Pneumococcal conjugate PCV20, polysaccharide [id number] conjugate, adjuvant, PF 2 completed Not Available [facility] 02/08/2025 09:06:23 Influenza, recombinant, quadrivalent, PF 2 completed Not Available [facility] 02/08/2025 09:06:23 Influenza, split virus, quadrivalent, PF 3 completed Not Available [facility] 02/08/2025 09:06:23 Influenza, high-dose, trivalent, PF 4 completed Not Available [facility] 02/08/2025 09:06:23 Past Encounters Encounter ID Performer Location Encounter Start Date Encounter Closed Date Diagnosis/Indication Diagnosis SNOMED-CT Code Diagnosis ICD10 Code Diagnosis IMO Codes Diagnosis Note [id number] Julien Alejandre APRN [address] [address] 02/08/2025 09:00:27 02/08/2025 11:13:11 Vitamin D deficiency 59633916 E55.9 29651 labs Malignant neoplasm of breast 535567043 C50.911 [id number] obtain records Chronic back pain 787982 002 M54.9 G89.29 31504214 Chronic depression 08667 0009 F32.A 298514 Migraine w ith persistent visual aura 395479767 G43.069 3457298 neurology referral Restless l egs syndrome 33684841 G25.81 55214 Urinary incontinence 165 821811 R32 48816798 Essential hypertension 69890488 I10 75499 cardiology referral Hyperglycemia 32761492 R 73.9 02863 endo referral Health Concerns Section Related Observation LastModified by Organization Detai ls LastModified Time None Recorded Concern Status LastModified by Organization Details LastModified Time None Recorded Advance Directives Directive N: Payers Insurance Date Sequence Insurance Name Policy Number Policy Hassan Covered Member ID Hassan Member ID Guarantor Name 03/06/2025 1 [employer] [place] (MEDICAID HMO) Meri Cole [id number] Meri Douglas 03/31/2025 [place] [employer] ([place]ID[place] Meri Douglas [id number] Meri Cole Notes Date Note Type Note Provider Name and Address Organization Details Recorded Time 02/08/2025 text/html Emergency Depart ment Follow-Up RecordReported by PatientEmergency Room Follow-Up RecordFor discharge information, patient reportsname of hospital/urgent care patient was seen: ([facility]),patient presented to hospital/urgent care on [...] 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[facility] 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
--- OUTSIDE RECORDS SUMMARY | 2025-06-29 11:59 | XMS_ITS | Clinical Summary ---
Author Organization [facility] Address [address] [place] [address] Phone Care Team Providers Care Bartender Name Role Phone Chetna Cedeno MD Primary Care Provider [phone] Allergies Active Allergy Reactions Criticality Noted Date [...] patient's age to complete this topic Insurance [facility] MEDICAID Care Teams Bartender Relationship Specialty Start Date End Date Chetna Cedeno MD [facility] [address] [place] [address] PCP - General Family Medicine 01/02/25
[2025-06-29 12:08] VITALS: BP 138/94; PULSE 85; RESP 20; O2SAT 98
[2025-06-29] MEDS: FULVESTRANT 250 MG/5 ML 500 MG IM (12:10)
== END 2025-06-29 23:59 | disposition home or self-care (01) ==
LOC: INF 11:57
PROVIDERS: PCP Family Medicine; Visit Provider Internal Medicine Medical Oncology
DX: D05.11 Intraductal carcinoma in situ of right breast (principal)
CPT/HCPCS: 96402; J9395

== ENCOUNTER 2025-07-07 10:42 | Outpatient (CLI) | payer MEDICAID, SELFPAY ==
--- NOTE | 2025-07-07 10:44 | PC.NURSE ---
1044-collected labs via venipuncture stick in left ac with butterfly needle;pt to d/c home
--- OUTSIDE RECORDS SUMMARY | 2025-07-07 10:45 | XMS_ITS | Clinical Summary ---
Author Organization [facility] Address [address] [place] [address] Phone Care Team Providers Care Chart Snatcher Name Role Phone Chetna Cedeno MD Primary Care Provider [phone] Allergies Active Allergy Reactions Criticality Noted Date [...] patient's age to complete this topic Insurance [facility] MEDICAID Care Teams Chart Snatcher Relationship Specialty Start Date End Date Chetna Cedeno MD [facility] [address] [place] [address] PCP - General Family Medicine 01/02/25
[2025-07-07 10:52] LABS: Hematocrit 34.4 % (37.0-47.0); Hemoglobin 10.9 g/dL (12.2-16.2); Immature Granulocytes % 0.2 %; Mean Corpuscular HGB Conc 31.7 g/dL (31.8-35.4); Mean Corpuscular Hemoglobin 28.8 pg (27.0-31.2); Mean Corpuscular Volume 91.0 fl (81-99); Nucleated Red Blood Cells % 0 %; Platelet Count 203 K/mm3 (142-424); Red Blood Count 3.78 M/mm3 (4.20-5.40); Red Cell Distribution Width-SD 41.3 fL; White Blood Count 5.1 K/mm3 (4.8-10.8)
[2025-07-07 10:59] LABS: Chloride 106 mmol/L (98-107)
[2025-07-07 11:00] LABS: Albumin Level 4.1 g/dl (3.5-5.0); Potassium 3.8 mmoL/L (3.5-5.1); Sodium 139 mmol/L (136-145)
[2025-07-07 11:03] LABS: Alanine Aminotransferase 13 U/L (12-78); Albumin/Globulin Ratio 2.0 (1.1-1.8); Alkaline Phosphatase 78 U/L (38-126); Anion Gap 6.8 mEq/L (5-15); Aspartate Amino Transferase 23 U/L (14-36); Bilirubin,Total 0.6 mg/dl (0.2-1.3); Blood Urea Nitrogen 13 mg/dl (7-17); Carbon Dioxide 30 mmol/L (22.0-30.0); Creatinine,Serum 1.10 mg/dl (0.52-1.04); Estimated Glomerular Filt Rate 51 ml/min (>60); GFR (African American) 62 ML/MIN (>60); Globulin 2.1 g/dL (1.3-3.2); Total Protein,Serum 6.2 g/dl (6.3-8.2)
[2025-07-07 11:04] LABS: Calcium 9.6 mg/dl (8.4-10.2); Glucose 110 mg/dl (74-100)
== END 2025-07-07 23:59 | disposition home or self-care (01) ==
PROVIDERS: PCP Family Medicine; Visit Provider Internal Medicine Medical Oncology
DX: D05.11 Intraductal carcinoma in situ of right breast (principal)
CPT/HCPCS: 36415; 80053; 85025

== ENCOUNTER 2025-07-07 11:00 | Outpatient (RCR) | payer MEDICAID, SELFPAY ==
--- NOTE | 2025-06-07 13:16 | HMH.RHREAS ---
Rehab Reassessment Rehab OP Re-assessment Start: 06/07/25 10:52 Freq: Status: Active Protocol: Document 06/07/25 13:05 ALDA (Rec: 06/07/25 13:16 PHORNE [id number]) E-signed By Stone Short, PT Rehab Re-assessment Subjective Subjective Pt reports she feels her compression garments help some during the day, but she states, It depends on how long I'm up on my feet. She reports slightly less discomfort in R UE overall, but continued feeling of fullness in the R axilla. Her current chemo regimen is making her more nauseated and generally weaker overall. She does report she feels less discomfort on days she receives her lymphedema treatments. Objective Objective Notes LLIS score: 83 Lymphedema Stage: 2 Edema: Moderate Fibrotic edema remains throughout R UE and axilla with palpation. TTP: 1/4 throughout R UE. Less symptoms of axillary web syndrome noted. Pain: 5/10 in R UE this date. Assessment Progress Assessment Progressing as Expected Assessment Notes Pt has been present for 8 treatment visits since her initial evaluation was performed. Pt continues to have fibrotic edema as expected, but some slight improvements in overall discomfort. Her current status with chemo and significant metastatic disease keeps expectations for overall edema reduction low but continued efforts for reduction of discomfort appear worthwhile. Skilled therapy remains indicated to reduce edema and discomfort in order to aid pt return to PLOF . All goals remain relevant at this time. Lymphedema Patient Goals Lymphedema Short In 4 wks pt will complete these goals in order to aid Term Patient Goals improvement in function specifically with all ADLs: 1) Reduce fibrotic edema to MILD throughout R UE 2) Reduce circumferential measurements to R UE by 3 cm 3) Decrease signs of axillary web syndrome in R UE to none 4) Decrease pain in R UE and axilla to 4/10 Lymphedema Snf in 8 wks pt will complete these goals in order to aid Patient Goals improvement in function specifically with all ADLs: 1) Reduce fibrotic edema to NONE throughout R UE and MILD throughput R axilla 2) Reduce circumferential measurements to R UE by 6 cm 3) Be independent with donning/doffing of compression garments 4) be independent with Lymphedema management via HEP 5) Decrease pain in R UE and axilla to 2/10 Plan Plan Continue current treatment regimen to reduce overall edema and discomfort in order to improve pt overall QOL and return to PLOF via the following possible interventions: Frequency of Therapy 2 x/wk Duration of Therapy 4 wks Therapeutic Exercise Yes Including Home Exercise Program Manual Therapy Yes Techniques Neuromuscular Re- Yes education Therapeutic Yes Activities to Return to Previous Functional/Work Level ADL/Self Care Yes Education Manual Lymphatic Yes Drainage Eval/Re-Eval Yes Time and Billing Re-Eval Time 14 Re-Eval Billing 0 Units Charge for PT No reassessment? PHYSICIAN CERTIFICATION: I certify the specified therapy services for Meri Cole are required, authorized, and reviewed every 30 days.
--- NOTE | 2025-07-07 15:43 | [facility].RHREAS ---
Rehab Reassessment Rehab OP Re-assessment Start: 06/07/25 10:52 Freq: Status: Active Protocol: Document 07/07/25 15:37 PHORNE (Rec: 07/07/25 15:43 PHORNE [id number]) E-signed By Stone Short, PT Rehab Re-assessment Subjective Subjective Patient reports her visit with Dr. Short was good, scans were good. She reports she feels less discomfort overall, but she remains tired from chemo. She does feel her R shoulder is moving better and she is able to reach things on higher shelves now. Objective Objective Notes LLIS score: 80 Lymphedema Stage: 2 Edema: Moderate Fibrotic edema remains throughout R UE and axilla with palpation. TTP: 1/4 throughout R UE. No symptoms of axillary web syndrome noted. Pain: 3/10 in R UE this date. Assessment Progress Assessment Progressing as Expected Assessment Notes Pt has been present for 7 treatment visits since her initial evaluation was performed. Pt continues to have fibrotic edema as expected, but moderate improvements in overall discomfort. Her current status with chemo and significant metastatic disease keeps expectations for overall edema reduction low but continued efforts for reduction of discomfort appear worthwhile. Skilled therapy remains indicated to reduce edema and discomfort in order to aid pt return to PLOF. All goals remain relevant at this time or have been modified. Lymphedema Patient Goals Lymphedema Short In 4 wks pt will complete these goals in order to aid Term Patient Goals improvement in function specifically with all ADLs: 1) Reduce fibrotic edema to MILD throughout R UE 2) Reduce circumferential measurements to R UE by 3 cm 3) Decrease signs of axillary web syndrome in R UE to none 4) Decrease pain in R UE and axilla to 2/10 Lymphedema Mcfp in 8 wks pt will complete these goals in order to aid Patient Goals improvement in function specifically with all ADLs: 1) Reduce fibrotic edema to NONE throughout R UE and MILD throughput R axilla 2) Reduce circumferential measurements to R UE by 6 cm 3) Be independent with donning/doffing of compression garments 4) be independent with Lymphedema management via HEP 5) Decrease pain in R UE and axilla to 1/10 Plan Plan Continue current treatment regimen to reduce overall edema and discomfort in order to improve pt overall QOL and return to PLOF via the following possible interventions: Frequency of Therapy 2 x/wk Duration of Therapy 4 wks Therapeutic Exercise Yes Including Home Exercise Program Manual Therapy Yes Techniques Neuromuscular Re- Yes education Therapeutic Yes Activities to Return to Previous Functional/Work Level ADL/Self Care Yes Education Manual Lymphatic Yes Drainage Time and Billing Re-Eval Time 16 Re-Eval Billing 0 Units Charge for PT No reassessment? PHYSICIAN CERTIFICATION: I certify the specified therapy services for Meri Cole are required, authorized, and reviewed every 30 days.
== END 2025-07-07 23:59 | disposition home or self-care (01) ==
LOC: PT 11:00
PROVIDERS: PCP Family Medicine; Visit Provider Internal Medicine Medical Oncology
DX: I89.0 Lymphedema, not elsewhere classified (principal)
CPT/HCPCS: 97140